=== PATIENT | male | born 1995 | race Caucasian/White ===

== ENCOUNTER 2019-11-14 02:51 | Emergency (ER) | payer MEDICAID, SELFPAY ==
[2019-11-14 02:52] VITALS: BP 158/108; PULSE 129; PULSE 134; RESP 181; TEMP 35.5; O2SAT 100; O2SAT 99
--- NOTE | 2019-11-14 02:57 | CT_ITS ---
STUDY: CT BRAIN WITHOUT CONTRAST REASON FOR EXAM: Male, 24 years old. Head injury. RADIATION DOSAGE (If Supplied By Facility): CTDIvol = ( 44.99 ) mGy, DLP = ( 779.24 ) mGycm TECHNIQUE: Transaxial CT imaging of the brain was performed without administration of intravenous contrast material. Individualized dose optimization techniques were used for this CT. COMPARISON: No relevant priors. FINDINGS: Small focal soft tissue swelling overlying the anterolateral aspect of the left frontal bone, just superolateral to the left orbit. Normal calvarium. Normal size ventricles and extra-axial spaces for the patient''s age. Normal white matter tracts of the cerebral hemispheres. Normal basal ganglia and thalami. Normal brainstem. Normal cerebellum. There is no intracranial hemorrhage. There are no findings of an acute ischemic infarction. Thickening of the maxillary sinuses mucosal, sphenoid sinus with complete opacification of the frontal sinuses and near complete opacification of the ethmoidal sinuses. These findings are compatible with pansinusitis. CT/Brain/Head without Contrast IMPRESSION: Normal unenhanced CT scan of the brain. No acute intracranial hemorrhage or space-occupying lesion. Electronically Signed: Cindy Wilkinson MD at 3:39 EST , Service support ,
--- NOTE | 2019-11-14 02:58 | CT_ITS ---
STUDY: CT CERVICAL SPINE WITHOUT CONTRAST REASON FOR EXAM: Male, 24 years old. Status post injury. RADIATION DOSAGE (If Supplied By Facility): CTDIvol = ( 11.97 ) mGy, DLP = ( 241.31 ) mGycm TECHNIQUE: High resolution transaxial imaging was performed without contrast material. Sagittal and coronal images were reconstructed. Individualized dose optimization techniques were used for this CT. COMPARISON: None FINDINGS: Normal craniovertebral junction. Normal anterior atlantoaxial articulation. Normal odontoid process. Normal cervical lordosis. Normal vertebral bodies and posterior osseous elements. C2-3: Normal endplates. Normal disc height and morphology. Normal central canal and intervertebral neuroforamina. C3-4: Normal endplates. Normal disc height and morphology. Normal central canal and intervertebral neuroforamina. C4-5: Normal endplates. Normal disc height and morphology. Normal central canal and intervertebral neuroforamina. C5-6: Normal endplates. Normal disc height and morphology. Normal central canal and intervertebral neuroforamina. C6-7: Normal endplates. Normal disc height and morphology. Normal central canal and intervertebral neuroforamina. C7-T1: Normal endplates. Normal disc height and morphology. Normal central canal and intervertebral neuroforamina. Lung apices reveal no pneumothorax. Coarse markings with bronchiectasis noted involving the lung parenchyma suggestive of bronchitis/pneumonitis. If indicated, follow-up with CT chest recommended for further characterization. CT/Spine Cervical without Contras IMPRESSION: Normal unenhanced CT examination of the cervical spine. Electronically Signed: Cindy Wilkinson MD at 3:42 EST , Service support ,
--- NOTE | 2019-11-14 03:02 | ED.DCSUM_ITS ---
- ER Visit Summary Date of Service: 11/14/19 Chief Complaint: Alcohol intoxication with head injury History of Present Illness: The patient is a 24 M [place] alcohol abuse of prior ER visits. Patient reportedly was found outside a bar with a head injury. Limited history. He is a very limited informant. 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 Patient was found cold and wet outside a bar on the ground. With a head injury. Patient himself is a limited informant and does not have any specific complaints. Physical Examination: Young male intoxicated. Clothes are wet. His eyes are open. He is in no severe distress. Vital signs are stable. He is afebrile. H EENT exam is left forehead is about 2 inch hematoma with a superficial laceration. No active bleeding. Pupils are unreactive light. Dentition intact. Scalp is nontender without hematoma. C-spine is nontender. Trachea midline. Lungs clear to auscultation bilaterally. Heart tachycardic no murmur. Chest were nontender. No signs of trauma. No crepitus or subcu air. Abdomen soft nontender. Normal bowel sounds no peritoneal signs. Pelvic girdle intact. He is moving all 4 extremities. There is no gross bony deformities. Neurologically he is intoxicated. His eyes are open. He is following limited commands. Back nontender. Test Results: CBC white count 11.5. Hemoglobin 16. No bands. Electrolytes sodium 134. Anion gap 12 glucose 298. BUN 20 creatinine 1. Alcohol level was elevated at 455 consistent with acute intoxication and his clinical presentation. CT of the brain showed no acute abnormality as read by the radiologist. And reviewed by me. CT C-spine again read by the radiologist reviewed by me no acute abnormality. No fracture. Emergency Department Course and Treatment: Patient intoxicated with a head injury. On repeat exams patient is resting quietly. He will remain in the emergency department and observed until he is coherent enough to be discharged to home. Patient's had multiple repeat exams. Patient is resting comfortably. Denies any complaints. Abdomen is benign. He is awake and alert. Is remorseful of being intoxicated and and up in the emergency department. He has had acceler ated heart rate around 140 bpm. He told me he has a history of tachycardia is off his medications for that. This is not abnormal for him to have a heart rate like that. Treatment Plan: Fluids and rest. Strongly encourage detox and alcohol counseling. Disposition: Discharge Impression: Acute alcohol intoxication Acute head injury with left forehead hematoma This note was generated with [employer] dictation software. It may contain incorrect words, spelling, and punctuation that were not noted in review of the chart prior to signing ED Disposition - Plan for ED Patient: Disposition: Home or Assisted Living Instructions: HEAD INJURY, No Wake-Up (Adult), Alcohol Abuse Referrals: Lenora Sutton, [Primary Care Provider] - 3-5 Days if not improving Additional Instructions: Plenty of fluids and rest. Tylenol for headache or body aches. You should strongly consider alcohol counseling or detox program.
[2019-11-14] MEDS: Ondansetron 4 MG/2 ML Vial IV (03:17)
[2019-11-14] MEDS: 0.9% Normal Saline 1,000 ML 1000 ML IV (03:17)
--- NOTE | 2019-11-14 03:20 | ED.DEP ---
ED Disposition - Plan for ED Patient: Disposition: Home or Assisted Living Instructions: HEAD INJURY, No Wake-Up (Adult), Alcohol Abuse Referrals: Lenora Sutton, [Primary Care Provider] - 3-5 Days if not improving Additional Instructions: Plenty of fluids and rest. Tylenol for headache or body aches. You should strongly consider alcohol counseling or detox program.
[2019-11-14 03:38] LABS: Absolute Lymphocyte Count 3.79 X10^3/uL (0.83-4.51); Absolute Neutrophil Count 6.9 X10^3/uL (2.0-7.7); Basophil# 0.15 X10^3/uL; Basophil% 1.3 % (0-1); Eosinophil# 0.29 X10^3/uL; Eosinophils% 2.5 % (0-5); Hematocrit 51.8 % (40-54); Hemoglobin 16.8 g/dL (13.0-16.5); Lymphocyte # 3.79 X10^3/ul (4.0); Lymphocyte % 32.9 % (19-41); Mean Corp Hgb Conc 32.4 g/dL (32-36); Mean Corpuscular Hgb 29.4 pg (27.0-32.0); Mean Corpuscular Volume 90.7 fL (80-94); Mean Platelet Vol. 9.1 fl (6.2-12.0); Monocyte# 0.39 X10^3/uL; Monocyte% 3.4 % (0-10); NRBC Flagged by Analyzer 0 % (0-5); Neutrophil # 6.85 X10^3/uL (2.7-7.7); Neutrophil % 59.4 % (47-70); Platelet Count 342 K/mm3 (150-450); RBC Distribution Width CV 13.7 % (11.6-14.6); RBC Distribution Width SD 45.3 fl (35.1-43.9); Red Blood Count 5.71 M/mm3 (4.6-6.2); White Blood Count 11.5 K/mm3 (4.4-11.0)
[2019-11-14 03:46] VITALS: BP 134/90; PULSE 96; RESP 16; O2SAT 98
[2019-11-14 03:51] LABS: Anion Gap 12 (5-15); BUN 20 mg/dL (7-18); BUN/Creat Ratio 18.5 RATIO (10-20); Calcium,Total 8.7 mg/dL (8.5-10.1); Chloride 102 mmol/L (98-107); Creatinine, Serum 1.08 mg/dL (0.70-1.30); EST Glomerular Filtration Rate 88 mL/min (>60); Est Glom Filt Rate - Afr Amer 106 mL/min (>60); Estimated Creatinine Clearance 72.86 ml/min; Glucose 298 mg/dL (74-106); Sodium Level 134 mmol/L (136-145)
[2019-11-14 05:24] VITALS: BP 115/76; PULSE 102; RESP 17
--- NOTE | 2019-11-14 08:28 | ED.RN ---
PT IS ATTMPTING TO REMOVED ALL HIS LEADS AND TAKE IV OUT. HAVE REPEATEDLY EXPLAINED THE IMPORTANCE OF THESE THINGS BUT HE REFUSED TO LISTEN. PHYSICIAN AWARE AND INFORMED TO GO SEE WITH PT.
[2019-11-14 08:33] VITALS: PULSE 153; RESP 19; O2SAT 96
== END 2019-11-14 09:07 | disposition home or self-care (01) ==
LOC: ED 03:23
PROVIDERS: Emergency Provider Emergency Medicine
DX: S00.83XA Contusion of other part of head, initial encounter (principal); F10.129 Alcohol abuse with intoxication, unspecified; Y90.8 Blood alcohol level of 240 mg/100 ml or more; X58.XXXA Exposure to other specified factors, initial encounter; Y93.89 Activity, other specified; Y92.89 Other specified places as the place of occurrence of the external cause; Y99.8 Other external cause status
CPT/HCPCS: 70450; 72125; 80048; 80320; 85025; 96361; 96374; 99285; A4216; G0480; J2405

== ENCOUNTER 2020-07-04 12:37 | Inpatient (IN) | payer MEDICAID, SELFPAY ==
[2020-07-04] VITALS (11 sets, daily range): BP systolic 137–169; BP diastolic 99–114; PULSE 106–137; RESP 16–24; TEMP 36.9–37.7; O2SAT 91–95; BMI 17.2; BMI 16.7
--- NOTE | 2020-07-04 12:56 | EKG12_ITS ---
Test Reason : SUB ABUSE Blood Pressure : / mmHG Vent. Rate : 112 BPM Atrial Rate : 112 BPM P-R Int : 178 ms QRS Dur : 088 ms QT Int : 346 ms P-R-T Axes : 063 085 051 degrees QTc Int : 472 ms Sinus tachycardia Otherwise normal ECG Confirmed by NOÉ RUEDA, RIC ([id number]), book editor BE FARAH ([id number]) on 07/10/2020 9:16:19 AM Referred By: DC Confirmed By:RIC UMANZOR MD
--- NOTE | 2020-07-04 13:00 | NURSING ---
NO OLD EKGS
--- NOTE | 2020-07-04 13:07 | ED.DCSUM_ITS ---
- ER Visit Summary Date of Service: 07/04/20 Chief Complaint: Alcohol withdrawal History of Present Illness: The patient is a 24 M with an underlying history of cystic fibrosis, asthma, pancreatitis. Presents today for alcohol withdrawal. He has been drinking regularly for 4 or 5 years without any periods of sobriety. He will drink a bottle and a half of hard liquor plus a couple 12 packs a week or sometimes more. He tends to drink more heavily on the weekends. His last drink was 5 days ago. He feels dizzy with a tremor. He has nausea and vomiting and an elevated heart rate. He has been having hallucinations. He denies any history of prior withdrawals or admissions for detox. Denies any history of DTs or seizures. Denies any other drug use or prescription drug abuse. Physical Examination: Blood pressure 169/114 and heart rate 137. Afebrile. Heart regular. Lungs clear. Abdomen soft. Skin appears unremarkable. Test Results: EKG, labs, tox screen, alcohol level pending. Emergency Department Course and Treatment: Patient has symptoms of alcohol withdrawal. He was treated with IV fluids and Ativan. He was placed on a monitor. He will likely need admission at this facility. Results are pending at the time of this dictation. I discussed the patient's case with Dr. Sanz. The patient will definitely need admitted. She would like a call back when the results are completed. I will sign the patient out to Dr. Felder. Everything resulted except for the tox screen and chest x-ray. Liver enzymes are elevated. Potassium 2.7 and glucose 280. He was treated with potassium. Hospitalist was contacted and he will be admitted to PCU. Again, chest x-ray and tox screen are pending at the time of this dictation. Treatment Plan: As above Disposition: admission Impression: Alcohol withdrawal, cystic fibrosis, hypokalemia This note was generated with [employer] software. It may contain incorrect words, spelling, and punctuation that were not noted in review of the chart prior to signing ED Disposition - Plan for ED Patient: Referrals: Lenora Sutton DO [Primary Care Provider] -
[2020-07-04] MEDS: 0.9% Normal Saline 1,000 ML 1000 ML IV (13:22)
[2020-07-04] MEDS: LORazepam 2 MG/ML Syringe 1 MG IV (13:22)
--- NOTE | 2020-07-04 13:35 | RAD_ITS ---
STUDY: X-RAY CHEST REASON FOR EXAM: Male, 24 years old. ALCOHOL WITHDRAW, DIZZINESS, TECHNIQUE: Single AP portable view of the chest. COMPARISON: None. FINDINGS: EKG electrodes are seen. Prominence of the right hilar region with increased markings in the right upper lobe as well as at the lung bases. Follow-up is recommended. There is no demonstrated pleural abnormality. Normal size heart. Normal visualized pulmonary arteries. Normal visualized aortic arch and descending thoracic aorta. Normal visualized thoracic spine. Normal visualized ribs, clavicles, and shoulders. There is no demonstrated abnormality of the visualized soft tissue structures of the upper abdomen. RAD/Chest 1 View (Portable) IMPRESSION: Prominence of the right hilum with possible right perihilar infiltrate. Increased markings in the right upper lobe as well as at the lung bases. Follow-up is recommended. Electronically Signed: Arnulfo Pringle, at 14:33 EDT , Service support ,
[2020-07-04 13:43] LABS: Absolute Lymphocyte Count 0.88 X10^3/uL (0.83-4.51); Absolute Neutrophil Count 3.2 X10^3/uL (2.0-7.7); Basophil# 0.04 X10^3/uL; Basophil% 0.8 % (0-1); Eosinophil# 0.07 X10^3/uL; Eosinophils% 1.5 % (0-5); Hematocrit 40.2 % (40-54); Hemoglobin 13.7 g/dL (13.0-16.5); Lymphocyte # 0.88 X10^3/ul (4.0); Lymphocyte % 18.3 % (19-41); Mean Corp Hgb Conc 34.1 g/dL (32-36); Mean Corpuscular Hgb 32.6 pg (27.0-32.0); Mean Corpuscular Volume 95.7 fL (80-94); Mean Platelet Vol. 9.7 fl (6.2-12.0); Monocyte% 12.5 % (0-10); NRBC Flagged by Analyzer 0 % (0-5); Neutrophil % 66.5 % (47-70); Platelet Count 154 K/mm3 (150-450); RBC Distribution Width CV 11.7 % (11.6-14.6); RBC Distribution Width SD 40.6 fl (35.1-43.9); White Blood Count 4.8 K/mm3 (4.4-11.0)
[2020-07-04 14:03] LABS: ALB/GLOB Ratio 0.5 RATIO (0.9-2.4); AST(SGOT) 84 U/L (15-37); Alanine Aminotransfer ALT/SGPT 69 U/L (16-61); Albumin, Serum 2.2 g/dL (3.2-5.0); Alkaline Phosphatase 740 U/L (45-117); Anion Gap 7 (5-15); BUN 12 mg/dL (7-18); BUN/Creat Ratio 14.9 RATIO (10-20); Calcium,Total 8.5 mg/dL (8.5-10.1); Chloride 98 mmol/L (98-107); Creatinine, Serum 0.81 mg/dL (0.70-1.30); EST Glomerular Filtration Rate 122 mL/min (>60); Est Glom Filt Rate - Afr Amer 148 mL/min (>60); Estimated Creatinine Clearance 83.35 ml/min; Globulin 4.6 g/dL (2.2-4.2); Glucose 280 mg/dL (74-106); Lipase < 10 U/L (73-393); Potassium 2.7 mmol/L (3.5-5.1); Protein, Total 6.8 g/dL (6.4-8.2); Sodium Level 137 mmol/L (136-145)
--- NOTE | 2020-07-04 14:04 | CM.ED ---
Social Work Consult: Substance Abuse Informant: Self-Referral Chief Complaint: Patient seeking medical management of withdrawal symptoms. Patient reports alcohol as substance of choice with last drink 5 days ago. Marital/Social history: Single Living Situation: Stable housing, did not assess further. Support/Resources: Reports support from patient mother and father (Nic and Emanuel Barber). Mental Health Treatment/History: Depression. Reports to take medication for Depression, Celexa. Patient states to be compliant with Celexa. Patient denies any history or current suicidal thoughts/plans/intents. Substance Abuse/use: Alcohol. Patient reports to fluctuate between a case of beer and a bottle of tequila or both. Patient states last drink was 5 days ago. Patient states to have been abusing alcohol for the past 4-5 years. Patient denies any history of detox or substance abuse treatment in the community. Assessment: Met with patient in room. Introduced self and manager social services role. Patient agreeable to speak with this manager social services. Patient mother present for support. Patient comfortable with speaking with this manager social services with patient mother in the room. This manager social services went over [facility] program contract verbally with patient, patient verbally agreeable to control. Nursing staff to have patient sign contract. Patient/patient mother with no further questions. Support provided. PLAN: Admit to [facility]. CALOS Harmon
[2020-07-04] MEDS: Potassium Chloride 10mEq/100mL 10 MEQ/100 ML IV.SOLN. 100 MEQ IV BOLUS ×4 (14:34→17:33)
--- NOTE | 2020-07-04 14:44 | CM.ED ---
Social Work Telephone call to [facility]. Voicemail left updating [facility] on patient admission to PCU for [facility] program. Desi Ramires MSW, CALOS
--- NOTE | 2020-07-04 14:57 | HP.PCM_ITS ---
<Anabel Greene - Last Filed: 07/04/20 15:28> Problem List (1) Cystic fibrosis Status: Chronic (2) Alcohol abuse Status: Chronic (3) Asthma Status: Chronic (4) Type 1 diabetes mellitus Status: Chronic (5) Pancreatic insufficiency Status: Chronic History of Present Illness Date of Admission: 07/04/20 Chief Complaint: Alcohol withdrawal. The patient is a 24 year old M who presents to the emergency room due to alcohol withdrawal. Patient intermittently confused during conversation and per mother at bedside, not giving accurate information. Mother provides most of HPI. Patient reportedly moved home with parents 1 year ago following being at college. A few months ago patient's parents learned of patient's heavy alcohol use. Patient under reported how much alcohol he drinks. Per mother, patient drinks a whole bottle of liquor at a time and 12 pack of beer at one sitting. He has been drinking daily for approximately the last 4 to 5 years. He has never been in detox or treatment program. Mother reports over the last 2 days he has been hallucinating and having bizarre behavior. She denies any history of similar behavior or history of hallucinations. She states patient was to go to work this morning and never showed up to work. She got a call from patient's friend that he was sitting in the driveway of their home and did not know where he was. Patient reports his last drink was last . Mother reports patient had significant nausea and vomiting over the weekend. Patient currently complains of tremors and confusion and states he cannot get his thoughts together. He has a past medical history of cystic fibrosis, asthma, type 1 di abetes mellitus, pancreatic insufficiency. Past Medical History Past Medical History (Chronic Problems): Chronic Problems Cystic fibrosis (Chronic) Alcohol abuse (Chronic) Asthma (Chronic) Type 1 diabetes mellitus (Chronic) Pancreatic insufficiency (Chronic) Allergies No Known Allergies Allergy (Verified 11/14/19 02:57) Home Medications: Ambulatory Orders Medication Instructions Recorded Elexacaftor/Tezacaftor/Ivacaft 2 ea PO DAILY 11/14/19 [Trikafta 100/50/75 mg-150 mg] Lipase/Protease/Amylase [Kush Molina 2 - 3 cap PO TIDCM 11/14/19 36,000 Units Capsule] Insulin Glargine,Hum.rec.anlog 3 unit SQ QHS 07/04/20 [Arvin Dianapen U-100] Insulin Lispro [Admelog Solostar] See Protocol SQ TIDCM 07/04/20 Tobramycin/Nebulizer [Tobramycin 300 mg IH BID 07/04/20 Octavio 300 mg/5 ml] Surgical History: no surgical history Psychiatric History: No pertinent psych hx Lives: With Family Smoking Status: Former smoker Tobacco Use: Vapor Alcohol: Heavy Drugs: None - *Family History Maternal History Items: High Cholesterol, Hypertension Paternal History Items: - - Leukemia Review of Systems Constitutional: Denies: Chills, Fever, Weight Change Eyes: Reports: Conjunctivae Inflammation, Redness HEENT: Denies: Head Aches, Sinus Congestion, Sinus Drainage Cardiovascular: Denies: Chest Pain, Palpitations Respiratory: Denies: Cough, Shortness of breath at rest, Sputum production Gastrointestinal: Denies: Abdominal Pain, Nausea, Vomiting Genitourinary: Denies: Dysuria Musculoskeletal: Denies: Joint Pain, Joint Tenderness Skin: Denies: Rash, Wounds Neurological: Reports: Confusion. Denies: Focal weakness, Numbness, Tingling Psychiatric: Denies: Anxiety, Depression, Homicidal Ideations, Suicidal Idea tions Hematologic/ Lymphatic: Denies: Easy Bruising, Easy Bleeding VTE Information - Inpt Only VTE Present on Admission: No VTE Mechan Device Prophylaxis: None VTE Pharm Prophylaxis ordered?: No Reason prophylaxis not ordered:: Treatment Not Indicated - Physical Exam Vitals/I&O's: Vital Signs Temp Pulse Resp BP Pulse Ox 98.4 F 111 H 24 H 146/108 H 91 07/04/20 14:38 07/04/20 14:38 07/04/20 14:38 07/04/20 14:38 07/04/20 14:38 Oxygen Delivery Method Room Air Weight: 94 lb Body Mass Index (BMI) 17.2 General: Alert, Oriented x3, Cooperative, - - restless HEENT: PERRLA, Normocephalic, - - Bilateral conjunctivitis Oral: Dry Mucosa Neck: Supple, No JVD, Negative Carotid Bruits Lungs: Clear to auscultation, Normal air movement Cardiovascular: Regular Rhythm, Normal S1, Normal S2, No murmurs, Tachycardic Abdomen: Bowel Sounds Present, Soft, Non Tender, Non-Distended Extremities: No clubbing, No cyanosis, No edema, Capillary Refill Less than 3 Seconds Skin: No rashes, No breakdown, - - Midline forehead cystic acne with skin breakage due to picking. Musculoskeletal: No Tenderness to Palpation of Joints or Extremities Neurological: Cranial nerves II-XII grossly intact, Neuro grossly intact Psych/Mental Status: Anxious Laboratory Results 07/04/20 13:30: WBC 4.8, RBC 4.20 L, Hgb 13.7, Hct 40.2, MCV 95.7 H, MCH 32.6 H, MCHC 34.1, RDW Std Deviation 40.6, RDW Coeff of Erika 11.7, Plt Count 154, MPV 9.7, Immature Gran % (Auto) 0.400, Neut % (Auto) 66.5, Lymph % (Auto) 18.3 L, [place] % (Auto) 12.5 H, Eos % (Auto) 1.5, Baso % (Auto) 0.8, Absolute Neuts (auto) 3.2, Absolute Lymphs (auto) 0.88, Nucleated RBC % 0 07/04/20 13:30: Sodium 137, Potassium 2.7 L*, Chloride 98, Carbon Dioxide 32.0, Anion Gap 7, BUN 12, Creatinine 0.81, Estim Creat Clear Calc 83.35, Est GFR (MDRD) Af Amer 148, Est GFR (MDRD) Non-Af 122, BUN/Creatinine Ratio 14.9, Glucose 280 H, Calcium 8.5, Total Bilirubin 1.50 H, AST 84 H, ALT 69 H, Alkaline Phosphatase 740 H, Troponin I < 0.015, Total Protein 6.8, Albumin 2.2 L, Globulin 4.6 H, Albumin/Globulin Ratio 0.5 L, Lipase < 10 L 07/04/20 13:30: Ethyl Alcohol 7.0 07/04/20 13:30: Urine Opiates Screen Pending, Urine Methadone Screen Pending, Ur Barbiturates Screen Pending, Ur Phencyclidine Scrn Pending, Ur Amphetamines Screen Pending, U Methamphetamin-MDMA Pending, U Benzodiazepines Scrn Pending, Urine Cocaine Screen Pending, U Cannabinoids Screen Pending, Ur Drug Screen Comment Current Medications Potassium Chloride () 10 meq in 100 mls @ 100 mls/hr IV BOLUS Q1H ABRAHAM Stop: 07/04/20 18:14 Last Admin: 07/04/20 14:34 Dose: 100 mls/hr Documented by: Assessment/Plan 1. Acute alcohol withdrawal, chronic alcohol dependence-CIWA. Phenobarbital taper. PRN regimen for somatic complaints. [employer] conusult. 2. Hypokalemia-replace per protocol, trend BMP. 3. Transaminitis-chronic per family. 4. Cystic fibrosis-on trikafta, tobramycin nebulizer. 5. Type 1 diabetes xdgsoifs-Opiz-Gdilw with sliding scale insulin. Continue home insulin regimen. 6. Asthma-as needed albuterol inhaler. 7. Pancreatic insufficiency-on Creon. 8. Protein calorie malnutrition-as evidenced by BMI 16, cachectic appearance. Dietitian consult. 9. Tachycardia-patient's mother reports this is somewhat chronic however suspect exacerbated by #1. Will treat withdrawal and continue to monitor. DVT prophylaxis-not indicated, low risk This patient was seen by ANKITA Antonio under the supervision of Dr. Sanz. <Kirsty Sanz - Last Filed: 07/04/20 16:06> History of Present Illness The patient is a 24 year old M [] Past Medical History Allergies No Known Allergies Allergy (Verified 11/14/19 02:57) - Physical Exam Vitals/I&O's: Vital Signs Temp Pulse Resp BP Pulse Ox 99.3 F H 114 H 18 157/99 H 95 07/04/20 15:15 07/04/20 15:15 07/04/20 15:15 07/04/20 15:15 07/04/20 15:15 Oxygen Delivery Method Room Air Weight: 41.5 kg Body Mass Index (BMI) 16.7 Intake and Output for Last 24 Hours 07/02/20 07/03/20 07/04/20 23:59 23:59 23:59 Intake Total 1078.33 / 1078.33 Balance 1078.33 / 1078.33 Laboratory Results 07/04/20 13:30: WBC 4.8, RBC 4.20 L, Hgb 13.7, Hct 40.2, MCV 95.7 H, MCH 32.6 H, MCHC 34.1, RDW Std Deviation 40.6, RDW Coeff of Erika 11.7, Plt Count 154, MPV 9.7, Immature Gran % (Auto) 0.400, Neut % (Auto) 66.5, Lymph % (Auto) 18.3 L, [place] % (Auto) 12.5 H, Eos % (Auto) 1.5, Baso % (Auto) 0.8, Absolute Neuts (auto) 3.2, Absolute Lymphs (auto) 0.88, Nucleated RBC % 0 07/04/20 13:30: Sodium 137, Potassium 2.7 L*, Chloride 98, Carbon Dioxide 32.0, Anion Gap 7, BUN 12, Creatinine 0.81, Estim Creat Clear Calc 83.35, Est GFR (MDRD) Af Amer 148, Est GFR (MDRD) Non-Af 122, BUN/Creatinine Ratio 14.9, Gluc ose 280 H, Calcium 8.5, Total Bilirubin 1.50 H, AST 84 H, ALT 69 H, Alkaline Phosphatase 740 H, Troponin I < 0.015, Total Protein 6.8, Albumin 2.2 L, Globulin 4.6 H, Albumin/Globulin Ratio 0.5 L, Lipase < 10 L 07/04/20 13:30: Ethyl Alcohol 7.0 07/04/20 13:30: Urine Opiates Screen Cancelled, Urine Methadone Screen Cancelled, Ur Barbiturates Screen Cancelled, Ur Phencyclidine Scrn Cancelled, Ur Amphetamines Screen Cancelled, U Methamphetamin-MDMA Cancelled, U Benzodiazepines Scrn Cancelled, Urine Cocaine Screen Cancelled, U Cannabinoids Screen Cancelled, Ur Drug Screen Comment Cancelled 07/04/20 13:30: Magnesium Pending 07/04/20 13:30: Hemoglobin A1c Pending Current Medications Al Hydroxide/Mg Hydroxide (Mylanta Ii) 30 ml PO Q6H PRN PRN PRN Reason: dyspesia Bisacodyl (Dulcolax) 10 mg RECTAL DAILY PRN PRN Reason: Constipation Dextrose (D50w Syringe) 0 gm IV X1 PRN; Protocol PRN Reason: Hypoglycemia Dicyclomine HCl (Bentyl) 20 mg PO Q6H PRN PRN PRN Reason: abdominal discomfort Erythromycin () 1 applic OPHTHALMIC 4X/DAY ABRAHAM Folic Acid (Folic Acid) 1 mg PO DAILY@0800 ABRAHAM Gabapentin (Neurontin) 300 mg PO Q8H PRN PRN PRN Reason: moderate to severe anxiety Glucagon () 1 mg IM .X1 PRN PRN Reason: Hypoglycemia Hydroxyzine Pamoate (Vistaril Pamoate Capsule) 50 mg PO Q4H PRN PRN PRN Reason: mild anxiety Potassium Chloride () 10 meq in 100 mls @ 100 mls/hr IV BOLUS Q1H ABRAHAM Stop: 07/04/20 18:14 Last Admin: 07/04/20 15:21 Dose: 100 mls/hr Documented by: Sodium Chloride () 1,000 mls @ 125 mls/hr IV .Q8H ABRAHAM Stop: 07/05/20 07:49 Insulin Glargine (Lantus (Bk)) 3 units SC QHS ABRAHAM Insulin Human Lispro (Humalog Kwikpen ([facility])) 0 unit SC ACHS ABRAHAM; Protocol Loperamide HCl (Imodium) 2 mg PO Q4H PRN PRN PRN Reason: LOOSE STOOLS Nicotine (Nicoderm Cq (Pbkc)) 21 mg TRANSDERM. DAILY ABRAHAM Non-Formulary Medication (Elexacaftor/Tezacaftor/Ivacaft [Trikafta 100/50/75 Mg- 150 Mg]) 2 ea PO DAILY ABRAHAM Non-Formulary Medication (Tobramycin/Nebulizer [Tobramycin Octavio 300 Mg/5 Ml]) 300 mg IH BID ABRAHAM Ondansetron HCl (Zofran) 8 mg PO Q8H PRN PRN PRN Reason: NAUSEA Ondansetron HCl (Zofran) 4 mg IV Q8H PRN PRN PRN Reason: NAUSEA/VOMITING Pancrelipase (Creon Dr 24,000 Unit Capsule) 3 capsule PO TIDCM ABRAHAM Pancrelipase (Creon Dr 12,000 Unit Capsule) 3 capsule PO TIDCM ABRAHAM Pancrelipase (Creon Dr 12,000 Unit Capsule) 2 capsule PO BID PRN PRN PRN Reason: SNACKS Pancrelipase (Creon Dr 24,000 Unit Capsule) 2 capsule PO BID PRN PRN PRN Reason: SNACKS Phenobarbital (Phenobarbital) 97.2 mg PO Q4H ABRAHAM; Taper Stop: 07/08/20 23:29 Senna (Senokot) 2 tablet PO QHS PRN PRN Reason: Constipation Sodium Chloride () 10 - 40 ml IV UD PRN PRN Reason: SALINE FLUSH Thiamine HCl (Vitamin B1) 100 mg PO DAILYCM ABRAHAM Trazodone HCl (Desyrel) 100 mg PO QHS PRN PRN Reason: INSOMNIA Assessment/Plan This patient was seen in conjunction with Anabel Greene NP. I have independently interviewed and examined the patient and reviewed pertinent historical, laboratory, and other data. Please refer to her note for patient's presentation, findings, and recommendations. 24-year-old male with past medical history of type I DM, cystic fibrosis, chronic pancreatic insufficiency, asthma comes in with an altered mental status. Patient's mom was at the bedside. Patient is a heavy drinker, not sure how much she drinks. He has been hallucinating the last 2 days and having bizarre behavior. Patient was supported living going to work today but never showed up to work. A friend called that he was sitting in the driveway confused. Reportedly his last drink was last tested. He has tremors, has been seeing things, has nausea and vomiting. Vitals were reviewed -cardiac, elevated blood pressure Physical Exam: Gen: Appears frail, in some discomfort, not pale, not jaundiced, alert oriented x3, crusting of both eyes with erythema of the conjunctiva CVS:HS I +II, regular, no murmurs RESP: CTA GI: BS present and normal, nontender, no palpable organs EXT:No edema Labs reviewed: K 2.7, Glucose 280, elevated liver enzymes ASSESSMENT: 1. Acute metabolic encephalopathy likely secondary acute alcohol withdrawal 2. Acute alcohol withdrawal, severe with hallucinations and probable DTs 3. Severe hypokalemia 4. Elevated transaminitis likely secondary to chronic alcohol use 5. Type I DM, uncontrolled 6. Cystic fibrosis 7. Pancreatic insufficiency 8. Protein calorie malnutrition 9. Bilateral conjunctivitis Meds reviewed Plan: We will get a urine tox start Continue to monitor on telemetry Continue on phenobarb withdrawal protocol Replace potassium Check magnesium level Continue to monitor blood sugar on insulin sliding scale and home medications Repeat transaminases in the morning; if remains elevated, we would recommend ultrasound of the liver Dietitian consult Erythromycin eyedrops daily [facility] Inpatient E&M: [id number] Init Hosp L3
[2020-07-04 16:07] LABS: Magnesium 1.4 mg/dL (1.6-2.6)
[2020-07-04 16:27] LABS: Hemoglobin A1c 6.6 % (3.8-5.6)
[2020-07-04] MEDS: Phenobarbital 32.4 MG Tablet 97.2 MG PO (16:46)
[2020-07-04 16:56] LABS: Bedside Glucose 145 mg/dL (70-110)
[2020-07-04] MEDS: Erythromycin Base 1 OPTH.TUBE 1 APPLIC OPHTHALMIC ×2 (17:41→22:23)
[2020-07-04] MEDS: Creon 24,000 unit DR Capsule 3 CAP PO (18:11)
[2020-07-04] MEDS: 0.9% Normal Saline 1,000 ML 125 ML IV (18:20)
[2020-07-04] MEDS: LORazepam 1 MG Tablet PO ×2 (18:42→22:20)
[2020-07-04] MEDS: Metoprolol Tartrate 25 MG Tablet 12.5 MG PO (22:20)
[2020-07-04] MEDS: Insulin Lispro 100 UNIT/ML INSULN.PEN SC (22:29)
[2020-07-04 22:40] LABS: Bedside Glucose 215 mg/dL (70-110)
[2020-07-05] VITALS (14 sets, daily range): BP systolic 147–157; BP diastolic 87–105; PULSE 77–120; RESP 16–20; TEMP 36.9–38.3; O2SAT 92–97; BMI 16.7
[2020-07-05] MEDS: LORazepam 1 MG Tablet PO ×6 (02:49→21:14)
[2020-07-05] MEDS: 0.9% Normal Saline 1,000 ML 125 ML IV (02:49)
[2020-07-05 03:37] LABS: Amphetamine Urine VISTA NEGATIVE (<1000 ng/mL); Barbiturate Urine VISTA POSITIVE (< 200 ng/mL); Benzodiazepine Urine VISTA NEGATIVE (< 200 ng/mL); Cocaine Urine VISTA NEGATIVE (< 300 ng/mL); Ecstacy Urine VISTA NEGATIVE (< 500 ng/mL); Methadone Urine VISTA NEGATIVE (< 300 ng/mL); PCP Urine VISTA NEGATIVE (< 25 ng/mL); THC Urine VISTA NEGATIVE (< 50 ng/mL); Vista UDS pH Range 7
[2020-07-05 06:34] LABS: Absolute Lymphocyte Count 1.34 X10^3/uL (0.83-4.51); Absolute Neutrophil Count 2.9 X10^3/uL (2.0-7.7); Basophil# 0.04 X10^3/uL; Basophil% 0.7 % (0-1); Eosinophil# 0.54 X10^3/uL; Eosinophils% 9.4 % (0-5); Hemoglobin 13.9 g/dL (13.0-16.5); Lymphocyte # 1.34 X10^3/ul (4.0); Lymphocyte % 23.4 % (19-41); Mean Corp Hgb Conc 34.8 g/dL (32-36); Mean Corpuscular Hgb 34.6 pg (27.0-32.0); Mean Corpuscular Volume 99.5 fL (80-94); Mean Platelet Vol. 9.4 fl (6.2-12.0); Monocyte# 0.89 X10^3/uL; Monocyte% 15.6 % (0-10); NRBC Flagged by Analyzer 0 % (0-5); Neutrophil # 2.89 X10^3/uL (2.7-7.7); Neutrophil % 50.6 % (47-70); Platelet Count 154 K/mm3 (150-450); RBC Distribution Width CV 12.1 % (11.6-14.6); RBC Distribution Width SD 43.7 fl (35.1-43.9); Red Blood Count 4.02 M/mm3 (4.6-6.2); White Blood Count 5.7 K/mm3 (4.4-11.0)
[2020-07-05 06:59] LABS: ALB/GLOB Ratio 0.5 RATIO (0.9-2.4); AST(SGOT) 88 U/L (15-37); Alanine Aminotransfer ALT/SGPT 63 U/L (16-61); Alkaline Phosphatase 714 U/L (45-117); Anion Gap 4 (5-15); BUN 7 mg/dL (7-18); BUN/Creat Ratio 9.2 RATIO (10-20); Calcium,Total 7.5 mg/dL (8.5-10.1); Chloride 107 mmol/L (98-107); Creatinine, Serum 0.76 mg/dL (0.70-1.30); EST Glomerular Filtration Rate 130 mL/min (>60); Est Glom Filt Rate - Afr Amer 158 mL/min (>60); Estimated Creatinine Clearance 86.46 ml/min; Globulin 4.4 g/dL (2.2-4.2); Glucose 99 mg/dL (74-106); Potassium 3.3 mmol/L (3.5-5.1); Protein, Total 6.4 g/dL (6.4-8.2); Sodium Level 141 mmol/L (136-145)
[2020-07-05 07:26] LABS: Bedside Glucose 91 mg/dL (70-110)
[2020-07-05] MEDS: Metoprolol Tartrate 25 MG Tablet 12.5 MG PO ×2 (09:49→21:22)
[2020-07-05] MEDS: Thiamine Hydrochloride 100 MG Tablet PO (09:50)
[2020-07-05] MEDS: Erythromycin Base 1 OPTH.TUBE 1 APPLIC OPHTHALMIC ×4 (09:50→21:19)
[2020-07-05] MEDS: ELEXACAFTOR/TEZACAFTOR/IVACAFT 1 EACH TABLET.SEQ PO (09:50)
[2020-07-05] MEDS: Folic Acid 1 MG Tablet PO (09:50)
--- NOTE | 2020-07-05 10:05 | PCM.PROGNOTE ---
<Anabel Greene - Last Filed: 07/05/20 10:13> Subjective: Patient seen and examined. Somnolent this morning. No evidence of distress or withdrawal symptoms. - Physical Exam Vitals/I&O's: Vital Signs Temp Pulse Resp BP Pulse Ox 98.4 F 77 18 152/102 H 97 07/05/20 09:45 07/05/20 09:49 07/05/20 09:45 07/05/20 09:45 07/05/20 09:45 Oxygen Flow Rate (L/min) 2 Oxygen Delivery Method Room Air Weight: 91 lb 7.869 oz Body Mass Index (BMI) 16.7 Intake and Output for Last 24 Hours 07/03/20 07/04/20 07/05/20 23:59 23:59 23:59 Intake Total 1664.83 / 1664.83 727.08 / 727.08 Output Total 0 / 0 Balance 1664.83 / 1664.83 727.08 / 727.08 General: No apparent distress, - - Drowsy HEENT: Atraumatic, PERRLA, Normocephalic, - - Bilateral conjunctivitis Oral: Dry Mucosa Neck: Supple, No JVD, Negative Carotid Bruits Lungs: Clear to auscultation, Normal air movement Cardiovascular: Regular rate, Regular Rhythm, Normal S1, Normal S2, No murmurs Abdomen: Bowel Sounds Present, Soft, Non Tender, Non-Distended Extremities: No clubbing, No cyanosis, No edema, Capillary Refill Less than 3 Seconds Skin: No rashes, No breakdown, - - Midline forehead cystic acne with skin breakage due to picking. Musculoskeletal: No Tenderness to Palpation of Joints or Extremities Neurological: Cranial nerves II-XII grossly intact, Neuro grossly intact Psych/Mental Status: Normal Affect, Appropriate Laboratory Results 07/04/20 13:30: WBC 4.8, RBC 4.20 L, Hgb 13.7, Hct 40.2, MCV 95.7 H, MCH 32.6 H, MCHC 34.1, RDW Std Deviation 40.6, RDW Coeff of Erika 11.7, Plt Count 154, MPV 9.7, Immature Gran % (Auto) 0.400, Neut % (Auto) 66.5, Lymph % (Auto) 18.3 L, [place]in[place] % (Auto) 12.5 H, Eos % (Auto) 1.5, Baso % (Auto) 0.8, Absolute Neuts (auto) 3.2, Absolute Lymphs (auto) 0.88, Nucleated RBC % 0 07/04/20 13:30: Sodium 137, Potassium 2.7 L*, Chloride 98, Carbon Dioxide 32.0, Anion Gap 7, BUN 12, Creatinine 0.81, Estim Creat Clear Calc 83.35, Est GFR (MDRD) Af Amer 148, Est GFR (MDRD) Non-Af 122, BUN/Creatinine Ratio 14.9, Glucose 280 H, Calcium 8.5, Total Bilirubin 1.50 H, AST 84 H, ALT 69 H, Alkaline Phosphatase 740 H, Troponin I < 0.015, Total Protein 6.8, Albumin 2.2 L, Globulin 4.6 H, Albumin/Globulin Ratio 0.5 L, Lipase < 10 L 07/04/20 13:30: Ethyl Alcohol 7.0 07/04/20 13:30: Urine Opiates Screen Cancelled, Urine Methadone Screen Cancelled, Ur Barbiturates Screen Cancelled, Ur Phencyclidine Scrn Cancelled, Ur Amphetamines Screen Cancelled, U Methamphetamin-MDMA Cancelled, U Benzodiazepines Scrn Cancelled, Urine Cocaine Screen Cancelled, U Cannabinoids Screen Cancelled, Ur Drug Screen Comment Cancelled 07/04/20 13:30: Magnesium 1.4 L 07/04/20 13:30: Hemoglobin A1c 6.6 H 07/04/20 16:44: POC Glucose 145 H 07/04/20 22:10: POC Glucose 215 H 07/05/20 02:50: Urine Opiates Screen NEGATIVE, Urine Methadone Screen NEGATIVE, Ur Barbiturates Screen POSITIVE H, Ur Phencyclidine Scrn NEGATIVE, Ur Amphetamines Screen NEGATIVE, U Methamphetamin-MDMA NEGATIVE, U Benzodiazepines Scrn NEGATIVE, Urine Cocaine Screen NEGATIVE, U Cannabinoids Screen NEGATIVE, Ur Drug Screen Comment 07/05/20 06:22: WBC 5.7, RBC 4.02 L, Hgb 13.9, Hct 40.0, MCV 99.5 H, MCH 34.6 H, MCHC 34.8, RDW Std Deviation 43.7, RDW Coeff of Erika 12.1, Plt Count 154, MPV 9.4, Immature Gran % (Auto) 0.300, Neut % (Auto) 50.6, Lymph % (Auto) 23.4, [place]in[place] % (Auto) 15.6 H, Eos % (Auto) 9.4 H, Baso % (Auto) 0.7, Absolute Neuts (auto) 2.9, Absolute Lymphs (auto) 1.34, Nucleated RBC % 0 07/05/20 06:22: Sodium 141, Potassium 3.3 L, Chloride 107, Carbon Dioxide 30.0, Anion Gap 4 L, BUN 7, Creatinine 0.76, Estim Creat Clear Calc 86.46, Est GFR (MDRD) Af Amer 158, Est GFR (MDRD) Non-Af 130, BUN/Creatinine Ratio 9.2 L, Glucose 99, Calcium 7.5 L, Total Bilirubin 1.10 H, AST 88 H, ALT 63 H, Alkaline Phosphatase 714 H, Total Protein 6.4, Albumin 2.0 L, Globulin 4.4 H, Albumin/Globulin Ratio 0.5 L 07/05/20 06:57: POC Glucose 91 Current Medications Al Hydroxide/Mg Hydroxide (Mylanta Ii) 30 ml PO Q6H PRN PRN PRN Reason: dyspesia Bisacodyl (Dulcolax) 10 mg RECTAL DAILY PRN PRN Reason: Constipation Dextrose (D50w Syringe) 0 gm IV X1 PRN; Protocol PRN Reason: Hypoglycemia Dicyclomine HCl (Bentyl) 20 mg PO Q6H PRN PRN PRN Reason: abdominal discomfort Erythromycin () 1 applic OPHTHALMIC 4X/DAY [facility] Last Admin: 07/05/20 09:50 Dose: 1 applicatio Documented by: Folic Acid (Folic Acid) 1 mg PO DAILY@0800 [facility] Last Admin: 07/05/20 09:50 Dose: 1 mg Documented by: Gabapentin (Neurontin) 300 mg PO Q8H PRN PRN PRN Reason: moderate to severe anxiety Glucagon () 1 mg IM .X1 PRN PRN Reason: Hypoglycemia Hydroxyzine Pamoate (Vistaril Pamoate Capsule) 50 mg PO Q4H PRN PRN PRN Reason: mild anxiety Insulin Glargine (Lantus ([facility])) 3 units SC QHS [facility] Last Admin: 07/04/20 22:28 Dose: 3 units Documented by: Insulin Human Lispro (Humalog Kwikpen ([facility])) 0 unit SC ACHS [facility]; Protocol Last Admin: 07/05/20 06:58 Dose: Not Given Documented by: Loperamide HCl (Imodium) 2 mg PO Q4H PRN PRN PRN Reason: LOOSE STOOLS Lorazepam (Ativan) 2 mg PO Q4H [facility]; Taper Stop: 07/09/20 01:59 Last Admin: 07/05/20 09:53 Dose: 2 mg Documented by: Metoprolol Tartrate (Lopressor (Beta Ericka)) 12.5 mg PO BID [facility] Last Admin: 07/05/20 09:49 Dose: 12.5 mg Documented by: Nicotine (Nicoderm Cq (Pbkc)) 21 mg TRANSDERM. DAILY [facility] Last Admin: 07/05/20 09:50 Dose: 21 mg Documented by: Ondansetron HCl (Zofran) 8 mg PO Q8H PRN PRN PRN Reason: NAUSEA Ondansetron HCl (Zofran) 4 mg IV Q8H PRN PRN PRN Reason: NAUSEA/VOMITING Pancrelipase (Creon Dr 12,000 Unit Capsule) 3 capsule PO TIDCM [facility] Last Admin: 07/05/20 09:49 Dose: 3 capsule Documented by: Senna (Senokot) 2 tablet PO QHS PRN PRN Reason: Constipation Sodium Chloride () 10 - 40 ml IV UD PRN PRN Reason: SALINE FLUSH Thiamine HCl (Vitamin B1) 100 mg PO DAILYCM [facility] Last Admin: 07/05/20 09:50 Dose: 100 mg Documented by: Trazodone HCl (Desyrel) 100 mg PO QHS PRN PRN Reason: INSOMNIA Medical Necessity - Tobacco Use Smoking Status: Former smoker Tobacco Use: Vapor Assessment/Plan 1. Acute alcohol withdrawal, chronic alcohol dependence-CIWA. Phenobarbital contraindicated due to interaction with chronic medication regimen. Ativan taper protocol. PRN regimen for somatic complaints. [employer] conusult. 2. Hypokalemia/hypomagnesia-replace per protocol, trend BMP, mag. 3. Transaminitis-chronic per family. Will obtain liver ultrasound. 4. Cystic fibrosis-on trikafta, tobramycin nebulizer. 5. Type 1 diabetes [id number]-Eyum-Mdiky with sliding scale insulin. Continue home insulin regimen. 6. Asthma-as needed albuterol inhaler. 7. Pancreatic insufficiency-on Creon. 8. Protein calorie malnutrition-as evidenced by BMI 16, cachectic appearance. Dietitian consult. 9. Tachycardia-patient's mother reports this is somewhat chronic however suspect exacerbated by #1. Will treat withdrawal and continue to monitor. Tachycardia improved. 10. Bilateral conjunctivitis-erythromycin ophthalmic ointment and warm compresses. DVT prophylaxis-not indicated, low risk This patient was seen by KITTY AntonioC under the supervision of Dr. Howell. <Stefani Howell E - Last Filed: 07/05/20 10:19> - Physical Exam Vitals/I&O's: Vital Signs Temp Pulse Resp BP Pulse Ox 98.4 F 77 18 152/102 H 97 07/05/20 09:45 07/05/20 09:49 07/05/20 09:45 07/05/20 09:45 07/05/20 09:45 Oxygen Flow Rate (L/min) 2 Oxygen Delivery Method Room Air Weight: 91 lb 7.869 oz Body Mass Index (BMI) 16.7 Intake and Output for Last 24 Hours 07/03/20 07/04/20 07/05/20 23:59 23:59 23:59 Intake Total 1664.83 / 1664.83 727.08 / 727.08 Output Total 0 / 0 Balance 1664.83 / 1664.83 727.08 / 727.08 Laboratory Results 07/04/20 13:30: WBC 4.8, RBC 4.20 L, Hgb 13.7, Hct 40.2, MCV 95.7 H, MCH 32.6 H, MCHC 34.1, RDW Std Deviation 40.6, RDW Coeff of Erika 11.7, Plt Count 154, MPV 9.7, Immature Gran % (Auto) 0.400, Neut % (Auto) 66.5, Lymph % (Auto) 18.3 L, [place]in[place] % (Auto) 12.5 H, Eos % (Auto) 1.5, Baso % (Auto) 0.8, Absolute Neuts (auto) 3.2, Absolute Lymphs (auto) 0.88, Nucleated RBC % 0 07/04/20 13:30: Sodium 137, Potassium 2.7 L*, Chloride 98, Carbon Dioxide 32.0, Anion Gap 7, BUN 12, Creatinine 0.81, Estim Creat Clear Calc 83.35, Est GFR (MDRD) Af Amer 148, Est GFR (MDRD) Non-Af 122, BUN/Creatinine Ratio 14.9, Glucose 280 H, Calcium 8.5, Total Bilirubin 1.50 H, AST 84 H, ALT 69 H, Alkaline Phosphatase 740 H, Troponin I < 0.015, Total Protein 6.8, Albumin 2.2 L, Globulin 4.6 H, Albumin/Globulin Ratio 0.5 L, Lipase < 10 L 07/04/20 13:30: Ethyl Alcohol 7.0 07/04/20 13:30: Urine Opiates Screen Cancelled, Urine Methadone Screen Cancelled, Ur Barbiturates Screen Cancelled, Ur Phencyclidine Scrn Cancelled, Ur Amphetamines Screen Cancelled, U Methamphetamin-MDMA Cancelled, U Benzodiazepines Scrn Cancelled, Urine Cocaine Screen Cancelled, U Cannabinoids Screen Cancelled, Ur Drug Screen Comment Cancelled 07/04/20 13:30: Magnesium 1.4 L 07/04/20 13:30: Hemoglobin A1c 6.6 H 07/04/20 16:44: POC Glucose 145 H 07/04/20 22:10: POC Glucose 215 H 07/05/20 02:50: Urine Opiates Screen NEGATIVE, Urine Methadone Screen NEGATIVE, Ur Barbiturates Screen POSITIVE H, Ur Phencyclidine Scrn NEGATIVE, Ur Amphetamines Screen NEGATIVE, U Methamphetamin-MDMA NEGATIVE, U Benzodiazepines Scrn NEGATIVE, Urine Cocaine Screen NEGATIVE, U Cannabinoids Screen NEGATIVE, Ur Drug Screen Comment 07/05/20 06:22: WBC 5.7, RBC 4.02 L, Hgb 13.9, Hct 40.0, MCV 99.5 H, MCH 34.6 H, MCHC 34.8, RDW Std Deviation 43.7, RDW Coeff of Erika 12.1, Plt Count 154, MPV 9.4, Immature Gran % (Auto) 0.300, Neut % (Auto) 50.6, Lymph % (Auto) 23.4, [place] % (Auto) 15.6 H, Eos % (Auto) 9.4 H, Baso % (Auto) 0.7, Absolute Neuts (auto) 2.9, Absolute Lymphs (auto) 1.34, Nucleated RBC % 0 07/05/20 06:22: Sodium 141, Potassium 3.3 L, Chloride 107, Carbon Dioxide 30.0, Anion Gap 4 L, BUN 7, Creatinine 0.76, Estim Creat Clear Calc 86.46, Est GFR (MDRD) Af Amer 158, Est GFR (MDRD) Non-Af 130, BUN/Creatinine Ratio 9.2 L, Glucose 99, Calcium 7.5 L, Total Bilirubin 1.10 H, AST 88 H, ALT 63 H, Alkaline Phosphatase 714 H, Total Protein 6.4, Albumin 2.0 L, Globulin 4.4 H, Albumin/Globulin Ratio 0.5 L 07/05/20 06:57: POC Glucose 91 Current Medications Al Hydroxide/Mg Hydroxide (Mylanta Ii) 30 ml PO Q6H PRN PRN PRN Reason: dyspesia Albuterol Sulfate (Ventolin Aerosols) 2.5 mg INHALATION Q2H PRN PRN PRN Reason: SHORTNESS OF BREATH Bisacodyl (Dulcolax) 10 mg RECTAL DAILY PRN PRN Reason: Constipation Dextrose (D50w Syringe) 0 gm IV X1 PRN; Protocol PRN Reason: Hypoglycemia Dicyclomine HCl (Bentyl) 20 mg PO Q6H PRN PRN PRN Reason: abdominal discomfort Erythromycin () 1 applic OPHTHALMIC 4X/DAY [facility] Last Admin: 07/05/20 09:50 Dose: 1 applicatio Documented by: Folic Acid (Folic Acid) 1 mg PO DAILY@0800 [facility] Last Admin: 07/05/20 09:50 Dose: 1 mg Documented by: Gabapentin (Neurontin) 300 mg PO Q8H PRN PRN PRN Reason: moderate to severe anxiety Glucagon () 1 mg IM .X1 PRN PRN Reason: Hypoglycemia Hydroxyzine Pamoate (Vistaril Pamoate Capsule) 50 mg PO Q4H PRN PRN PRN Reason: mild anxiety Insulin Glargine (Lantus (Bk)) 3 units SC QHS [facility] Last Admin: 07/04/20 22:28 Dose: 3 units Documented by: Insulin Human Lispro (Humalog Kwikpen (Bk)) 0 unit SC ACHS [facility]; Protocol Last Admin: 07/05/20 06:58 Dose: Not Given Documented by: Loperamide HCl (Imodium) 2 mg PO Q4H PRN PRN PRN Reason: LOOSE STOOLS Lorazepam (Ativan) 2 mg PO Q4H [facility]; Taper Stop: 07/09/20 01:59 Last Admin: 07/05/20 09:53 Dose: 2 mg Documented by: Metoprolol Tartrate (Lopressor (Beta Ericka)) 12.5 mg PO BID [facility] Last Admin: 07/05/20 09:49 Dose: 12.5 mg Documented by: Nicotine (Nicoderm Cq (Pbkc)) 21 mg TRANSDERM. DAILY [facility] Last Admin: 07/05/20 09:50 Dose: 21 mg Documented by: Ondansetron HCl (Zofran) 8 mg PO Q8H PRN PRN PRN Reason: NAUSEA Ondansetron HCl (Zofran) 4 mg IV Q8H PRN PRN PRN Reason: NAUSEA/VOMITING Pancrelipase (Creon Dr 12,000 Unit Capsule) 3 capsule PO TIDCM [facility] Last Admin: 07/05/20 09:49 Dose: 3 capsule Documented by: Sencomfort (Senokot) 2 tablet PO QHS PRN PRN Reason: Constipation Sodium Chloride () 10 - 40 ml IV UD PRN PRN Reason: SALINE FLUSH Thiamine HCl (Vitamin B1) 100 mg PO DAILYCM [facility] Last Admin: 07/05/20 09:50 Dose: 100 mg Documented by: Trazodone HCl (Desyrel) 100 mg PO QHS PRN PRN Reason: INSOMNIA Assessment/Plan Hospitalist note: I am seeing this patient in conjunction with Anabel Greene. I independently seen and examined the patient. Progress note above and laboratory data reviewed and I concur with above treatment plan. This morning, patient is sleepy, somnolent but he was able to communicate. No obvious stress or anxiety at this time. He is not aspirating this morning. His vital signs are stable. - Physical Exam General: Alert, lethargic but arousable, cooperative, No apparent distress. HEENT: Atraumatic, PERRLA, EOMI. Neck: Supple, No JVD, Negative Carotid Bruits, Trachea Midline, Thyroid Normal. Lungs: Diminished breath sounds bilateral, bilateral fine rales, occasional rhonchi. No wheezes, no shortness of breath. Cardiovascular: Regular rate, Regular Rhythm, Normal S1, Normal S2, PMI Normal. Abdomen: Bowel Sounds Present, Soft, Non Tender, Non-Distended, No Hepato-splenomegaly. Extremities: No clubbing, No cyanosis, No edema Skin: No rashes, No breakdown Neurological: Cranial nerves are intact, neuro grossly intact Vital Signs are stable. Assessment and plan: #1 acute alcohol withdrawal: He is on Ativan taper, thiamine, folic acid. Currently, he is drowsy and somnolent but easily arousable. Vital signs are stable. Repeat routine blood work from today revealed potassium of 3.3 which is improved, otherwise normal. LFT slightly elevated which is chronic. Urine drug screen was positive for barbiturates. Blood alcohol level was 7. Plan to continue same treatment. #2 hypokalemia/hypomagnesemia: Potassium improved, it is 3.3 today. Patient received magnesium supplement. Plan to monitor. #3 elevated LFT: It is chronic. Ultrasound liver ordered. Patient denied any right upper quadrant abdominal pain. #4 other chronic medical problems: Stable, continue current medications as above. This note was generated with [employer] dictation software. It may contain incorrect words, spelling, and punctuation that were not noted in checking the note before signing. Inpatient E&M: 86909 Subs Hosp L2
--- NOTE | 2020-07-05 10:09 | US_ITS ---
STUDY: ABDOMINAL ULTRASOUND - RIGHT UPPER QUADRANT REASON FOR VISIT: Male, 24 years old abnormal labs. Transaminitis. History of alcohol abuse. TECHNIQUE: Ultrasound evaluation of the right upper quadrant was performed with real-time and static decker-scale imaging. TECHNICAL QUALITY: Adequate. COMPARISON: None. FINDINGS: Liver: The liver measures 14.2 cm. There is increased echogenicity consistent with fatty infiltration. The bile ducts are within normal limits. There is hepatic color flow. The direction of portal flow is hepatopetal. There is no demonstrated mass lesion. Gallbladder: Normal distended gallbladder. The gallbladder wall measures 3 mm. There is a negative sonographic Adhikari''s sign. There is no pericholecystic fluid. There are no gallstones. Common Bile Duct (C.B.D.): The common bile duct measures 4 mm. Pancreas: Normal size of the head, body and proximal tail of the pancreas. The distal talus obscured. There is normal echogenicity of the pancreas. There is no demonstrated pancreatic mass or cyst. Right Kidney: Normal size of the right kidney. The right kidney measures 9.4 cm. Normal renal cortex. The right cortex measures 1.4 cm. There is no demonstrated renal mass or cyst. There is no right hydronephrosis. There is a trace of ascites in the subphrenic space US/Liver IMPRESSION: 1. Increased parenchymal echogenicity of liver suggesting fatty infiltration or other diffuse hepatocellular process. There is no focal mass. 2. Minimal ascites. 3. Otherwise normal right upper quadrant abdominal ultrasound. Electronically Signed: Jesus Hendrickson DO at 18:15 EDT Tel [phone], Service support ,
--- NOTE | 2020-07-05 10:24 | ADDICTION ---
THis writer editor met with patient in his room to conduct ASAM and MSE assessments and to start discharge planning in preparation of his planned discharge later this week. Patient was awake, alert and orietned x4 and participated appropriately. He shared that he has been experiencing some psychiatric symptoms, including seeing people in Halloween costumes and masks coming in through his window to perform medical procedures. This writer editor will communicate this with department social worker psychiatric to follow up. This writer editor provided patient with information related to agencies specializing in MH and AOD treatment in [place]. He stated that he will think about his options and will follow up with this writer editor at next visit regarding discharge planning. This writer editor will fax assessments and documentation to [facility].
[2020-07-05 10:31] LABS: Magnesium 1.7 mg/dL (1.6-2.6)
--- NOTE | 2020-07-05 11:10 | PCM.NTREPORT ---
Nutrition Therapy Report - History Nutrition Services has been consulted to:: Manage nutrient details of diet order Current diet / nutrition support order:: Carbohydrate-Controlled Diet - Anthropometric Measurements Height:: 5 ft 2 in Weight:: 41.5 kg Body Mass Index (BMI):: 16.7 - Relevant Labs Relevant Labs:: RBC 4.02 M/mm3 (4.6-6.2) L 07/05/20 06:22 MCV 99.5 fL (80-94) H 07/05/20 06:22 MCH 34.6 pg (27.0-32.0) H 07/05/20 06:22 Lymph % (Auto) 18.3 % (19-41) L 07/04/20 13:30 Cassia % (Auto) 15.6 % (0-10) H 07/05/20 06:22 Eos % (Auto) 9.4 % (0-5) H 07/05/20 06:22 Potassium 3.3 mmol/L (3.5-5.1) L 07/05/20 06:22 Anion Gap 4 (5-15) L 07/05/20 06:22 BUN/Creatinine Ratio 9.2 RATIO (10-20) L 07/05/20 06:22 Glucose 280 mg/dL (74-106) H 07/04/20 13:30 Hemoglobin A1c 6.6 % (3.8-5.6) H 07/04/20 13:30 Calcium 7.5 mg/dL (8.5-10.1) L 07/05/20 06:22 Magnesium 1.4 mg/dL (1.6-2.6) L 07/04/20 13:30 Total Bilirubin 1.10 mg/dL (0.20-1.00) H 07/05/20 06:22 AST 88 U/L (15-37) H 07/05/20 06:22 ALT 63 U/L (16-61) H 07/05/20 06:22 Alkaline Phosphatase 714 U/L (45-117) H 07/05/20 06:22 Albumin 2.0 g/dL (3.2-5.0) L 07/05/20 06:22 Globulin 4.4 g/dL (2.2-4.2) H 07/05/20 06:22 Albumin/Globulin Ratio 0.5 RATIO (0.9-2.4) L 07/05/20 06:22 Lipase < 10 U/L (73-393) L 07/04/20 13:30 - Assessment Food / Nutrition-Related History:: Pt eating breakfast without difficulty and reports appetite seems improved this morningl denies difficulty chewing/swallowing. Pt reports UBW~95-98 lbs about 1-2 weeks ago--calculated~4-6% wt loss x past 1-2 weeks and significant for malnutrition. Pt has been having N/V and unable to eat prior to admit otherwise reports ok appetite and always been low wt for ht. Pt likes chocolate ONS--will offer chocolate glucerna shake with meals TID. Pt with obvious muscle and fat depletion; +NFPA with signs of cachexia. 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 Evidence of Malnutrition Exists:: Yes Severe PCM:: Social & Environmental circumstances - Nutrition Intervention Nutrition Prescription:: Estimated Nutrition Needs~[id number] kcal and ~50-60 gm protein per day for repletion. - Food / Nutrient Delivery Interventions Summary of nutrition intervention:: Continue carbohydrate-controlled diet and encourage intake at meals. Will add 240 ml chocolate glucerna shake TID with meals per pt request. Offer additional oral nutrition supplements as toelrated and pt willing. Nutrition support ordered as / adjusted to:: No TF/TPN support ordered Nutrition education provided?: Yes - MNT Monitoring Further MNT monitoring and evaluation required?: Yes MNT Follow-up in:: 3-5 days
[2020-07-05] MEDS: Insulin Lispro 100 UNIT/ML INSULN.PEN SC ×2 (11:44→21:17)
[2020-07-05 11:55] LABS: Bedside Glucose 191 mg/dL (70-110)
[2020-07-05 17:15] LABS: Bedside Glucose 110 mg/dL (70-110)
[2020-07-05 21:35] LABS: Bedside Glucose 250 mg/dL (70-110)
[2020-07-06] VITALS (12 sets, daily range): BP systolic 144–172; BP diastolic 89–106; PULSE 91–108; RESP 16–22; TEMP 36.9–37.5; O2SAT 92–100
[2020-07-06] MEDS: LORazepam 1 MG Tablet PO ×6 (03:03→21:14)
[2020-07-06 06:04] LABS: ALB/GLOB Ratio 0.5 RATIO (0.9-2.4); AST(SGOT) 163 U/L (15-37); Alanine Aminotransfer ALT/SGPT 77 U/L (16-61); Albumin, Serum 1.9 g/dL (3.2-5.0); Alkaline Phosphatase 725 U/L (45-117); Anion Gap 4 (5-15); BUN 9 mg/dL (7-18); BUN/Creat Ratio 13.8 RATIO (10-20); Calcium,Total 7.7 mg/dL (8.5-10.1); Chloride 108 mmol/L (98-107); Creatinine, Serum 0.65 mg/dL (0.70-1.30); EST Glomerular Filtration Rate 156 mL/min (>60); Est Glom Filt Rate - Afr Amer 188 mL/min (>60); Estimated Creatinine Clearance 101.09 ml/min; Globulin 3.8 g/dL (2.2-4.2); Glucose 106 mg/dL (74-106); Magnesium 1.7 mg/dL (1.6-2.6); Potassium 3.8 mmol/L (3.5-5.1); Protein, Total 5.7 g/dL (6.4-8.2); Sodium Level 140 mmol/L (136-145)
[2020-07-06 06:40] LABS: Bedside Glucose 97 mg/dL (70-110)
[2020-07-06] MEDS: Metoprolol Tartrate 25 MG Tablet 12.5 MG PO ×2 (09:25→21:07)
[2020-07-06] MEDS: Folic Acid 1 MG Tablet PO (09:26)
[2020-07-06] MEDS: Thiamine Hydrochloride 100 MG Tablet PO (09:27)
[2020-07-06] MEDS: Erythromycin Base 1 OPTH.TUBE 1 APPLIC OPHTHALMIC ×4 (09:28→21:16)
[2020-07-06] MEDS: ELEXACAFTOR/TEZACAFTOR/IVACAFT 1 EACH TABLET.SEQ PO (09:28)
[2020-07-06] MEDS: 0.9% Saline Lock 10 ML Syringe IV (09:35)
--- NOTE | 2020-07-06 11:41 | ADDICTION ---
This functional tester typewriters met with patient in his room to process discharge planning. Patient refused discharge planning and coordination with local agencies. He stated that he is not sure what he wants to do upon completion of medical withdrawal management but agreed to contact a treatment facility on 07/07/2020 after discharging from [facility]. This functional tester typewriters reviewed recovery literature and [facility] affiliated treatment agencies in [facility] for patient to choose from. This functional tester typewriters verified that patient has this functional tester typewriters's business card so he can make contact if wanted or needed.
[2020-07-06] MEDS: Insulin Lispro 100 UNIT/ML INSULN.PEN SC ×3 (12:34→21:09)
[2020-07-06 12:45] LABS: Bedside Glucose 288 mg/dL (70-110)
--- NOTE | 2020-07-06 12:46 | PCM.PN.HOSP ---
<Bolivar Klein - Last Filed: 07/06/20 12:46> Reason for Visit: alcohol withdrawal Subjective: Pt denies hallucinations, no issues with SOB/cough, nausea/vomiting/diarrhea. Mild upper extremity tremor. C/o dry eyes. Vitals/I&O's: Vital Signs Temp Pulse Resp BP Pulse Ox 99.2 F H 101 H 16 160/106 H 100 07/06/20 12:30 07/06/20 12:30 07/06/20 12:30 07/06/20 12:30 07/06/20 12:30 Oxygen Flow Rate (L/min) 2 Oxygen Delivery Method Room Air Weight: 91 lb 7.869 oz Body Mass Index (BMI) 16.7 Intake and Output for Last 24 Hours 07/04/20 07/05/20 07/06/20 23:59 23:59 23:59 Intake Total 1664.83 / 1664.83 2532.08 / 2532.08 230 / 230 Output Total 325 / 325 Balance 1664.83 / 1664.83 2207.08 / 2207.08 230 / 230 General: Alert, Oriented x3, Cooperative HEENT: Atraumatic, PERRLA, EOMI, Normocephalic Neck: Supple, No JVD, Negative Carotid Bruits Lungs: Clear to auscultation, Normal air movement Cardiovascular: Regular rate, No murmurs Abdomen: Bowel Sounds Present, Soft, Non Tender Extremities: No edema, Capillary Refill Less than 3 Seconds Skin: No rashes, No breakdown Musculoskeletal: No Tenderness to Palpation of Joints or Extremities Neurological: Cranial nerves II-XII grossly intact Psych/Mental Status: Normal Affect, Appropriate, Alert and oriented to time, place, person, mood and affect Laboratory Results 07/05/20 17:11: POC Glucose 110 07/05/20 21:11: POC Glucose 250 H 07/06/20 05:14: Sodium 140, Potassium 3.8, Chloride 108 H, Carbon Dioxide 28.0, Anion Gap 4 L, BUN 9, Creatinine 0.65 L, Estim Creat Clear Calc 101.09, Est GFR (MDRD) Af Amer 188, Est GFR (MDRD) Non-Af 156, BUN/Creatinine Ratio 13.8, Glucose 106, Calcium 7.7 L, Magnesium 1.7, Total Bilirubin 1.00, AST 163 H, ALT 77 H, Alkaline Phosphatase 725 H, Total Protein 5.7 L, Albumin 1.9 L, Globulin 3.8, Albumin/Globulin Ratio 0.5 L 07/06/20 06:33: POC Glucose 97 07/06/20 12:28: POC Glucose 288 H Current Medications Al Hydroxide/Mg Hydroxide (Mylanta Ii) 30 ml PO Q6H PRN PRN PRN Reason: dyspesia Albuterol Sulfate (Ventolin Aerosols) 2.5 mg INHALATION Q2H PRN PRN PRN Reason: SHORTNESS OF BREATH Bisacodyl (Dulcolax) 10 mg RECTAL DAILY PRN PRN Reason: Constipation Dextrose (D50w Syringe) 0 gm IV X1 PRN; Protocol PRN Reason: Hypoglycemia Dicyclomine HCl (Bentyl) 20 mg PO Q6H PRN PRN PRN Reason: abdominal discomfort Erythromycin () 1 applic OPHTHALMIC 4X/DAY [facility] Last Admin: 07/06/20 09:28 Dose: 1 applicatio Documented by: Folic Acid (Folic Acid) 1 mg PO DAILY@0800 [facility] Last Admin: 07/06/20 09:26 Dose: 1 mg Documented by: Gabapentin (Neurontin) 300 mg PO Q8H PRN PRN PRN Reason: moderate to severe anxiety Glucagon () 1 mg IM .X1 PRN PRN Reason: Hypoglycemia Hydroxyzine Pamoate (Vistaril Pamoate Capsule) 50 mg PO Q4H PRN PRN PRN Reason: mild anxiety Insulin Glargine (Lantus (Bkc)) 3 units SC QHS [facility] Last Admin: 07/05/20 21:16 Dose: 3 units Documented by: Insulin Human Lispro (Humalog Kwikpen (Bkc)) 0 unit SC ACHS [facility]; Protocol Last Admin: 07/06/20 12:34 Dose: 2 units Documented by: Loperamide HCl (Imodium) 2 mg PO Q4H PRN PRN PRN Reason: LOOSE STOOLS Lorazepam (Ativan) 1 mg PO Q4H [facility]; Taper Stop: 07/09/20 01:59 Last Admin: 07/06/20 09:45 Dose: 1 mg Documented by: Metoprolol Tartrate (Lopressor (Beta Ericka)) 12.5 mg PO BID [facility] Last Admin: 07/06/20 09:25 Dose: 12.5 mg Documented by: Nicotine (Nicoderm Cq (Pbkc)) 21 mg TRANSDERM. DAILY [facility] Last Admin: 07/06/20 09:27 Dose: 21 mg Documented by: Ondansetron HCl (Zofran) 8 mg PO Q8H PRN PRN PRN Reason: NAUSEA Ondansetron HCl (Zofran) 4 mg IV Q8H PRN PRN PRN Reason: NAUSEA/VOMITING Pancrelipase (Kush Dr 12,000 Unit Capsule) 3 capsule PO TIDCM [facility] Last Admin: 07/06/20 12:36 Dose: 3 capsule Documented by: Senna (Senokot) 2 tablet PO QHS PRN PRN Reason: Constipation Sodium Chloride () 10 - 40 ml IV UD PRN PRN Reason: SALINE FLUSH Last Admin: 07/06/20 09:35 Dose: 10 ml Documented by: Thiamine HCl (Vitamin B1) 100 mg PO DAILYCM [facility] Last Admin: 07/06/20 09:27 Dose: 100 mg Documented by: Trazodone HCl (Desyrel) 100 mg PO QHS PRN PRN Reason: INSOMNIA STROKE Vital Signs/Narrative: Vital Signs Temp Pulse Resp BP Pulse Ox 07/06/20 12:30 99.2 F H 101 H 16 160/106 H 100 07/06/20 09:25 108 H 172/98 H Medical Necessity - Tobacco Use Smoking Status: Current every day smoker Tobacco Use: Vapor Assessment/Plan 1. Alcohol abuse with withdrawal-continue Ativan taper, phenobarbital to indicated with medication interactions. Patient to follow-up with 180 at discharge. Patient plans to also attend AA at discharge. 2. Transaminitis-chronic, liver ultrasound suggests increased parenchymal echogenicity fatty liver disease or other diffuse hepatocellular process, minimal ascites, otherwise normal. Will need follow-up CMP as outpatient. 3. Cystic fibrosis and asthma-no exacerbations. 4. Type 1 diabetes mellitus-continue Lantus plus sliding scale insulin. 5. Pancreatic insufficiency-continue Creon DVT prophylaxis: Early ambulation DC planning: Continue withdrawal taper This patient was seen by Bolivar Klein PA-C under the supervision of Doctor Lynda. <Stefani Howell E - Last Filed: 07/06/20 12:56> Vitals/I&O's: Vital Signs Temp Pulse Resp BP Pulse Ox 99.2 F H 101 H 16 160/106 H 100 07/06/20 12:30 07/06/20 12:30 07/06/20 12:30 07/06/20 12:30 07/06/20 12:30 Oxygen Flow Rate (L/min) 2 Oxygen Delivery Method Room Air Weight: 91 lb 7.869 oz Body Mass Index (BMI) 16.7 Intake and Output for Last 24 Hours 07/04/20 07/05/20 07/06/20 23:59 23:59 23:59 Intake Total 1664.83 / 1664.83 2532.08 / 2532.08 230 / 230 Output Total 325 / 325 Balance 1664.83 / 1664.83 2207.08 / 2207.08 230 / 230 Laboratory Results 07/05/20 17:11: POC Glucose 110 07/05/20 21:11: POC Glucose 250 H 07/06/20 05:14: Sodium 140, Potassium 3.8, Chloride 108 H, Carbon Dioxide 28.0, Anion Gap 4 L, BUN 9, Creatinine 0.65 L, Estim Creat Clear Calc 101.09, Est GFR (MDRD) Af Amer 188, Est GFR (MDRD) Non-Af 156, BUN/Creatinine Ratio 13.8, Glucose 106, Calcium 7.7 L, Magnesium 1.7, Total Bilirubin 1.00, AST 163 H, ALT 77 H, Alkaline Phosphatase 725 H, Total Protein 5.7 L, Albumin 1.9 L, Globulin 3.8, Albumin/Globulin Ratio 0.5 L 07/06/20 06:33: POC Glucose 97 07/06/20 12:28: POC Glucose 288 H Current Medications Al Hydroxide/Mg Hydroxide (Mylanta Ii) 30 ml PO Q6H PRN PRN PRN Reason: dyspesia Albuterol Sulfate (Ventolin Aerosols) 2.5 mg INHALATION Q2H PRN PRN PRN Reason: SHORTNESS OF BREATH Bisacodyl (Dulcolax) 10 mg RECTAL DAILY PRN PRN Reason: Constipation Dextrose (D50w Syringe) 0 gm IV X1 PRN; Protocol PRN Reason: Hypoglycemia Dicyclomine HCl (Bentyl) 20 mg PO Q6H PRN PRN PRN Reason: abdominal discomfort Erythromycin () 1 applic OPHTHALMIC 4X/DAY [facility] Last Admin: 07/06/20 09:28 Dose: 1 applicatio Documented by: Folic Acid (Folic Acid) 1 mg PO DAILY@0800 [facility] Last Admin: 07/06/20 09:26 Dose: 1 mg Documented by: Gabapentin (Neurontin) 300 mg PO Q8H PRN PRN PRN Reason: moderate to severe anxiety Glucagon () 1 mg IM .X1 PRN PRN Reason: Hypoglycemia Hydroxyzine Pamoate (Vistaril Pamoate Capsule) 50 mg PO Q4H PRN PRN PRN Reason: mild anxiety Insulin Glargine (Lantus (Bk)) 3 units SC QHS [facility] Last Admin: 07/05/20 21:16 Dose: 3 units Documented by: Insulin Human Lispro (Humalog Kwikpen ([facility])) 0 unit SC [facility]; Protocol Last Admin: 07/06/20 12:34 Dose: 2 units Documented by: Loperamide HCl (Imodium) 2 mg PO Q4H PRN PRN PRN Reason: LOOSE STOOLS Lorazepam (Ativan) 1 mg PO Q4H [facility]; Taper Stop: 07/09/20 01:59 Last Admin: 07/06/20 09:45 Dose: 1 mg Documented by: Metoprolol Tartrate (Lopressor (Beta Ericka)) 12.5 mg PO BID [facility] Last Admin: 07/06/20 09:25 Dose: 12.5 mg Documented by: Nicotine (Nicoderm Cq (Pbkc)) 21 mg TRANSDERM. DAILY [facility] Last Admin: 07/06/20 09:27 Dose: 21 mg Documented by: Ondansetron HCl (Zofran) 8 mg PO Q8H PRN PRN PRN Reason: NAUSEA Ondansetron HCl (Zofran) 4 mg IV Q8H PRN PRN PRN Reason: NAUSEA/VOMITING Pancrelipase (Creon Dr 12,000 Unit Capsule) 3 capsule PO TIDCM [facility] Last Admin: 07/06/20 12:36 Dose: 3 capsule Documented by: Senna (Senokot) 2 tablet PO QHS PRN PRN Reason: Constipation Sodium Chloride () 10 - 40 ml IV UD PRN PRN Reason: SALINE FLUSH Last Admin: 07/06/20 09:35 Dose: 10 ml Documented by: Thi[facility] B1) [facility] Last Admin: 08/06/20 09:27 Dose: 100 mg Documented by: Trazodone HCl (Desyrel) 100 mg PO QHS PRN PRN Reason: INSOMNIA STROKE Vital Signs/Narrative: Vital Signs Temp Pulse Resp BP Pulse Ox 07/06/20 12:30 99.2 F H 101 H 16 160/106 H 100 07/06/20 09:25 108 H 172/98 H Assessment/Plan Hospitalist note: I am seeing this patient in conjunction with Bolivar Klein. I independently seen and examined the patient. Progress note above reviewed and I concur with above treatment plan. Today, he is feeling better. He is alert and oriented x3. Slept okay last night, normal hallucination. Vital signs are stable. - Physical Exam General: Alert, oriented x3, cooperative, No apparent distress. HEENT: Atraumatic, PERRLA, EOMI. Neck: Supple, No JVD, Negative Carotid Bruits, Trachea Midline, Thyroid Normal. Lungs: Diminished breath sounds bilateral, bilateral fine rales, occasional rhonchi. No wheezes, no shortness of breath. Cardiovascular: Regular rate, Regular Rhythm, Normal S1, Normal S2, PMI Normal. Abdomen: Bowel Sounds Present, Soft, Non Tender, Non-Distended, No Hepato-splenomegaly. Extremities: No clubbing, No cyanosis, No edema Skin: No rashes, No breakdown Neurological: Cranial nerves are intact, neuro grossly intact Vital Signs are stable. Assessment and plan: #1 acute alcohol withdrawal: Remained on Ativan taper, thiamine, folic acid. Today, he is more alert and noted x3, not somnolent. Vital signs are stable. Potassium was replaced and corrected. LFT slightly elevated which is chronic. Urine drug screen was positive for barbiturates. Blood alcohol level was 7. Plan to continue same treatment. #2 hypokalemia/hypomagnesemia: Potassium improved, it is 3.8 today. Serum magnesium is 1.7, normalized. #3 elevated LFT: It is chronic. Ultrasound reviewed, revealed fatty infiltration, no focal mass, minimal ascites. Probably due to chronic liver disease. #4 other chronic medical problems: Stable, continue current medications as above. This note was generated with [employer] dictation software. It may contain incorrect words, spelling, and punctuation that were not noted in checking the note before signing. Inpatient E&M: 52900 Subs Hosp L2
[2020-07-06] MEDS: Acetaminophen 500 MG Tablet PO (13:35)
--- NOTE | 2020-07-06 14:19 | CHAPLAIN ---
Type of Pastoral Visit _x__ Initial Visit ___ Follow-up Visit ___ On-call Visit ___ General Patient Visit ___ Spiritual Assessment ___ Family Conference ___ Bereavement ___ Rapid Response ___ Code Blue ___ Other (describe below) Pastoral Care Referral From _x__ Patient ___ Family ___ Nurse ___ Physician ___ Financial Management Consultant ___ Financial Officer ___ Other (describe below) Sacrament/Intervention _x__ Active listening ___ Anointing ___ Anabaptist ___ Bereavement ___ Communion ___ Tati exploration ___ _x__ Life review ___ Prayer ___ Reconciliation ___ Sacrament of Sick _x__ Supportive presence ___ Wedding ___ Other (describe below) Pastoral Comments patient willing to talk about his life and interests; pt focused on his CF condition; pt states he is able to handle his recovery; pt expresses appreciation for time and attention given to him
[2020-07-06 16:51] LABS: Bedside Glucose 312 mg/dL (70-110)
[2020-07-06 20:55] LABS: Bedside Glucose 338 mg/dL (70-110)
[2020-07-07] VITALS: PULSE 94
[2020-07-07] MEDS: traZODone 100 MG Tablet PO (00:41)
[2020-07-07 02:13] VITALS: BP 131/81; PULSE 87; RESP 18; TEMP 36.8; O2SAT 95
[2020-07-07] MEDS: LORazepam 1 MG Tablet PO ×2 (02:16→09:14)
[2020-07-07 04:30] VITALS: PULSE 83
[2020-07-07] MEDS: Insulin Lispro 100 UNIT/ML INSULN.PEN SC (06:41)
[2020-07-07 06:56] LABS: Bedside Glucose 206 mg/dL (70-110)
[2020-07-07 06:59] VITALS: PULSE 92
[2020-07-07 09:10] VITALS: BP 141/94; PULSE 97; RESP 16; TEMP 37.4; O2SAT 95
[2020-07-07] MEDS: Folic Acid 1 MG Tablet PO (09:15)
[2020-07-07] MEDS: Erythromycin Base 1 OPTH.TUBE 1 APPLIC OPHTHALMIC (09:15)
[2020-07-07] MEDS: Thiamine Hydrochloride 100 MG Tablet PO (09:15)
[2020-07-07 09:16] VITALS: PULSE 97
[2020-07-07] MEDS: Metoprolol Tartrate 25 MG Tablet 12.5 MG PO (09:16)
[2020-07-07] MEDS: ELEXACAFTOR/TEZACAFTOR/IVACAFT 1 EACH TABLET.SEQ PO (09:16)
[2020-07-07] MEDS: 0.9% Saline Lock 10 ML Syringe IV (09:23)
--- NOTE | 2020-07-07 10:56 | PCM.DC ---
- Discharge Diagnoses Current Active Problems: Current Active and Chronic Problems Cystic fibrosis (Chronic) Alcohol abuse (Chronic) Asthma (Chronic) Type 1 diabetes mellitus (Chronic) Pancreatic insufficiency (Chronic) You will use the following diet at home:: Other - no alcohol Your food should be the consistency of: Regular Your liquids should be the consistency of: Regular/Thin Discharge Activity: Return to Normal Activity Allergies/Adverse Reactions: Allergies No Known Allergies Allergy (Verified 11/14/19 02:57) Medications to take at Discharge Elexacaftor/Tezacaftor/Ivacaft [Trikafta 100/50/75 mg-150 mg] 2 ea PO DAILY 11/14/19 Lipase/Protease/Amylase [Creon Dr 36,000 Units Capsule] 2 - 3 cap PO TIDCM 11/14/19 Insulin Glargine,Hum.rec.anlog [Basaglar Kwikpen U-100] 3 unit SQ QHS 07/04/20 Insulin Lispro [Admelog Solostar] See Protocol SQ TIDCM 07/04/20 Tobramycin/Nebulizer [Tobramycin Octavio 300 mg/5 ml] 300 mg IH BID 07/04/20 Metoprolol Tartrate [Lopressor (beta pao)] 12.5 mg PO BID #60 tab 07/07/20 The following prescriptions were given: Metoprolol Tartrate [Lopressor (beta pao)] 12.5 mg PO BID #60 tab Transmission Status: Pending to [facility] [id number] Primary Care Physician: Lenora Sutton DO [Primary Care Provider] - Please follow up with your Primary Care Physician in: 1-2 weeks Test Results: Test results from this visit will be discussed in further detail at your follow-up appointment, if applicable. Please Follow Up With: [facility] Program When: 1 day Proposed Discharge Date: 07/07/20
--- NOTE | 2020-07-07 11:54 | DS.PCM_ITS ---
<Bolivar Klein - Last Filed: 07/07/20 11:54> Discharge Date and Diagnosis Date of Admission: 07/04/20 Date of Discharge: 07/07/20 - Primary Discharge Diagnosis Acute Problems: Alcoholism with acute withdrawal Cystic fibrosis, asthma Type 1 diabetes Pancreatic insufficiency - Secondary Discharge Diagnosis Chronic Problems: Chronic Problems Cystic fibrosis (Chronic) Alcohol abuse (Chronic) Asthma (Chronic) Type 1 diabetes mellitus (Chronic) Pancreatic insufficiency (Chronic) Hospital Course and Treatment Imaging Results: RAD/Chest 1 View (Portable) IMPRESSION: Prominence of the right hilum with possible right perihilar infiltrate. Increased markings in the right upper lobe as well as at the lung bases. Follow-up is recommended. US/Liver IMPRESSION: 1. Increased parenchymal echogenicity of liver suggesting fatty infiltration or other diffuse hepatocellular process. There is no focal mass. 2. Minimal ascites. 3. Otherwise normal right upper quadrant abdominal ultrasound. Operations: None Procedures: None Summary of Care Provided: Hospital course: The patient is a 24 year old M with past medical history as above who presented to the emergency room with alcohol withdrawal requesting assistance with detox. Reportedly the patient was drinking a whole bottle of liquor plus a 12 pack of beer at a time and had been using for about 4 to 5 years. He had never been to detox before. He had been hallucinating at home and had nausea and vomiting. He had an alcohol level of 7 time of admission. He could not be placed on the phenobarbital taper as he has an interaction with his cystic fibrosis medications. Instead he was placed on an Ativan taper. He had significant hallucinations and confusion at the beginning of his detox, however this resolved after the first night. Patient had an uneventful rest of his stay here. He was discharged home in stable condition. He will follow-up with 180 this week. Follow-up with PCP in 1 to 2 weeks. This patient was seen by Bolivar Klein PA-C under the supervision of Doctor Howell. - Physical Exam Vitals/I&O's: Vital Signs Temp Pulse Resp BP Pulse Ox 99.3 F H 97 16 141/94 H 95 07/07/20 09:10 07/07/20 09:16 07/07/20 09:10 07/07/20 09:10 07/07/20 09:10 Oxygen Flow Rate (L/min) 2 Oxygen Delivery Method Room Air Weight: 91 lb 7.869 oz Body Mass Index (BMI) 16.7 Intake and Output for Last 24 Hours 07/05/20 07/06/20 07/07/20 23:59 23:59 23:59 Intake Total 2532.08 / 2532.08 2190 / 2190 300 / 300 Output Total 325 / 325 Balance 2207.08 / 2207.08 2190 / 2190 300 / 300 General: Alert, Oriented x3, Cooperative HEENT: Atraumatic, PERRLA, EOMI, Normocephalic Neck: Supple, No JVD, Negative Carotid Bruits Lungs: Clear to auscultation, Normal air movement Cardiovascular: Regular rate, No murmurs Abdomen: Bowel Sounds Present, Soft, Non Tender Extremities: No edema, Capillary Refill Less than 3 Seconds Skin: No rashes, No breakdown Musculoskeletal: No Tenderness to Palpation of Joints or Extremities Neurological: Cranial nerves II-XII grossly intact Psych/Mental Status: Normal Affect, Appropriate, Alert and oriented to time, place, person, mood and affect Laboratory Results 07/06/20 12:28: POC Glucose 288 H 07/06/20 16:31: POC Glucose 312 H 07/06/20 20:50: POC Glucose 338 H 07/07/20 06:34: POC Glucose 206 H Current Medications Acetaminophen (Tylenol) 500 mg PO Q6H PRN PRN PRN Reason: Pain or Fever Last Admin: 07/06/20 13:35 Dose: 500 mg Documented by: Al Hydroxide/Mg Hydroxide (Mylanta Ii) 30 ml PO Q6H PRN PRN PRN Reason: dyspesia Albuterol Sulfate (Ventolin Aerosols) 2.5 mg INHALATION Q2H PRN PRN PRN Reason: SHORTNESS OF BREATH Bisacodyl (Dulcolax) 10 mg RECTAL DAILY PRN PRN Reason: Constipation Dextrose (D50w Syringe) 0 gm IV X1 PRN; Protocol PRN Reason: Hypoglycemia Dicyclomine HCl (Bentyl) 20 mg PO Q6H PRN PRN PRN Reason: abdominal discomfort Erythromycin () 1 applic OPHTHALMIC 4X/DAY [facility] Last Admin: 07/07/20 09:15 Dose: 1 applicatio Documented by: Folic Acid (Folic Acid) 1 mg PO DAILY@0800 [facility] Last Admin: 07/07/20 09:15 Dose: 1 mg Documented by: Gabapentin (Neurontin) 300 mg PO Q8H PRN PRN PRN Reason: moderate to severe anxiety Glucagon () 1 mg IM .X1 PRN PRN Reason: Hypoglycemia Hydroxyzine Pamoate (Vistaril Pamoate Capsule) 50 mg PO Q4H PRN PRN PRN Reason: mild anxiety Insulin Glargine (Lantus (Bk)) 3 units SC QHS [facility] Last Admin: 07/06/20 21:11 Dose: 3 units Documented by: Insulin Human Lispro (Humalog Kwikpen (Bk)) 0 unit SC [facility]; Protocol Last Admin: 07/07/20 06:41 Dose: 1 units Documented by: Loperamide HCl (Imodium) 2 mg PO Q4H PRN PRN PRN Reason: LOOSE STOOLS Lorazepam (Ativan) 1 mg PO Q6H [facility]; Taper Stop: 07/09/20 01:59 Last Admin: 07/07/20 09:14 Dose: 1 mg Documented by: Metoprolol Tartrate (Lopressor (Beta Ericka)) 12.5 mg PO BID [facility] Last Admin: 07/07/20 09:16 Dose: 12.5 mg Documented by: Nicotine (Nicoderm Cq (Pbkc)) 21 mg TRANSDERM. DAILY [facility] Last Admin: 07/07/20 09:16 Dose: 21 mg Documented by: Ondansetron HCl (Zofran) 8 mg PO Q8H PRN PRN PRN Reason: NAUSEA Ondansetron HCl (Zofran) 4 mg IV Q8H PRN PRN PRN Reason: NAUSEA/VOMITING Pancrelipase (Creon Dr 12,000 Unit Capsule) 3 capsule PO TIDCM [facility] Last Admin: 07/07/20 09:14 Dose: 3 capsule Documented by: Senna (Senokot) 2 tablet PO QHS PRN PRN Reason: Constipation Sodium Chloride () 10 - 40 ml IV UD PRN PRN Reason: SALINE FLUSH Last Admin: 07/07/20 09:23 Dose: 10 ml Documented by: [facility]) [facility] Last Admin: 07/07/20 09:15 Dose: 100 mg Documented by: Trazodone HCl (Desyrel) 100 mg PO QHS PRN PRN Reason: INSOMNIA Last Admin: 07/07/20 00:41 Dose: 100 mg Documented by: Discharge Diet: - - no alcohol Discharge Activity: Return to Normal Activity Home Medications: Medications to take at Discharge Elexacaftor/Tezacaftor/Ivacaft [Trikafta 100/50/75 mg-150 mg] 2 ea PO DAILY 11/14/19 Lipase/Protease/Amylase [Kush Molina 36,000 Units Capsule] 2 - 3 cap PO TIDCM 11/14/19 Insulin Glargine,Hum.rec.anlog [Basaglar Kwikpen U-100] 3 unit SQ QHS 07/04/20 Insulin Lispro [Admelog Solostar] See Protocol SQ TIDCM 07/04/20 Tobramycin/Nebulizer [Tobramycin Octavio 300 mg/5 ml] 300 mg IH BID 07/04/20 Metoprolol Tartrate [Lopressor (beta ericka)] 12.5 mg PO BID #60 tab 07/07/20 Nicotine [Nicotine Patch] 21 mg TRANSDERM. DAILY #14 patch.[email or web address] 07/07/20 Following Prescriptions Were Given to Patient: Metoprolol Tartrate [Lopressor (beta ericka)] 12.5 mg PO BID #60 tab Transmission Status: Received by MCKENZIE [address] Nicotine [Nicotine Patch] 21 mg TRANSDERM. DAILY #14 patch.[email or web address] Prescription Printed Primary Care Physician: Lenora Sutton DO [Primary Care Provider] - Please follow up with your Primary Care Physician in: 1-2 weeks Please Follow Up With: 180 Program When: 1 day Disposition: Home Minutes spent on discharge:: 35 Patient Condition:: Stable Medical Necessity - Tobacco Use Smoking Status: Current every day smoker Tobacco Use: Vapor Meaningful Use Info Meaningful Use Diagnoses (Choose all that apply): None applicable <Stefnai Howell - Last Filed: 07/07/20 12:31> Discharge Date and Diagnosis - Secondary Discharge Diagnosis Chronic Problems: Chronic Problems Cystic fibrosis (Chronic) Alcohol abuse (Chronic) Asthma (Chronic) Type 1 diabetes mellitus (Chronic) Pancreatic insufficiency (Chronic) Hospital Course and Treatment Summary of Care Provided: Hospitalist note: Discharge summary above reviewed and I concur with above discharge treatment plan. Patient presented to the emergency room with alcohol withdrawal symptoms requesting admission for medical stabilization. Reportedly, patient has been drinking a whole bottle of liquor +12 pack of beer daily. He had hallucination as well as nausea and vomiting at home and upon arrival to the emergency department. His admission blood alcohol level was 7. Patient was started on Ativan taper along with folic acid, thiamine and multivitamins. He was not placed on phenobarbital taper because of interaction with his cystic fibrosis medications. The first day of admission, patient had significant hallucination and confusion which resolved after the first night post admission. He was found to have hypokalemia and his potassium was replaced and corrected. Other routine blood work was unremarkable. LFT was elevated because of fatty infiltration of the liver. Ultrasound liver done and revealed fatty infiltration, no focal mass and revealed minimal ascites. With treatment, patient symptoms improved. Patient discharged home in a stable condition, discharged on his previous home medications without any changes, plan to follow-up with 180 program, recommended follow-up with PCP in 1 to 2 weeks. - Physical Exam General: Alert, oriented x3, cooperative, No apparent distress. HEENT: Atraumatic, PERRLA, EOMI. Neck: Supple, No JVD, Negative Carotid Bruits, Trachea Midline, Thyroid Normal. Lungs: Diminished breath sounds bilateral, bilateral fine rales, occasional rhonchi. No wheezes, no shortness of breath. Cardiovascular: Regular rate, Regular Rhythm, Normal S1, Normal S2, PMI Normal. Abdomen: Bowel Sounds Present, Soft, Non Tender, Non-Distended, No Hepato- splenomegaly. Extremities: No clubbing, No cyanosis, No edema Skin: No rashes, No breakdown Neurological: Cranial nerves are intact, neuro grossly intact Vital Signs are stable. This note was generated with [employer] dictation software. It may contain incorrect words, spelling, and punctuation that were not noted in checking the note before signing. - Physical Exam Vitals/I&O's: Vital Signs Temp Pulse Resp BP Pulse Ox 99.3 F H 97 16 141/94 H 95 07/07/20 09:10 07/07/20 09:16 07/07/20 09:10 07/07/20 09:10 07/07/20 09:10 Oxygen Flow Rate (L/min) 2 Oxygen Delivery Method Room Air Weight: 91 lb 7.869 oz Body Mass Index (BMI) 16.7 Intake and Output for Last 24 Hours 07/05/20 07/06/20 07/07/20 23:59 23:59 23:59 Intake Total 2532.08 / 2532.08 2190 / 2190 300 / 300 Output Total 325 / 325 Balance 2207.08 / 2207.08 2190 / 2190 300 / 300 Laboratory Results 07/06/20 12:28: POC Glucose 288 H 07/06/20 16:31: POC Glucose 312 H 07/06/20 20:50: POC Glucose 338 H 07/07/20 06:34: POC Glucose 206 H Current Medications Acetaminophen (Tylenol) 500 mg PO Q6H PRN PRN PRN Reason: Pain or Fever Last Admin: 07/06/20 13:35 Dose: 500 mg Documented by: Al Hydroxide/Mg Hydroxide (Mylanta Ii) 30 ml PO Q6H PRN PRN PRN Reason: dyspesia Albuterol Sulfate (Ventolin Aerosols) 2.5 mg INHALATION Q2H PRN PRN PRN Reason: SHORTNESS OF BREATH Bisacodyl (Dulcolax) 10 mg RECTAL DAILY PRN PRN Reason: Constipation Dextrose (D50w Syringe) 0 gm IV X1 PRN; Protocol PRN Reason: Hypoglycemia Dicyclomine HCl (Bentyl) 20 mg PO Q6H PRN PRN PRN Reason: abdominal discomfort Erythromycin () 1 applic OPHTHALMIC 4X/DAY [facility] Last Admin: 07/07/20 09:15 Dose: 1 applicatio Documented by: Folic Acid (Folic Acid) 1 mg PO DAILY@0800 [facility] Last Admin: 07/07/20 09:15 Dose: 1 mg Documented by: Gabapentin (Neurontin) 300 mg PO Q8H PRN PRN PRN Reason: moderate to severe anxiety Glucagon () 1 mg IM .X1 PRN PRN Reason: Hypoglycemia Hydroxyzine Pamoate (Vistaril Pamoate Capsule) 50 mg PO Q4H PRN PRN PRN Reason: mild anxiety Insulin Glargine (Lantus (Bkc)) 3 units SC QHS [facility] Last Admin: 07/06/20 21:11 Dose: 3 units Documented by: Insulin Human Lispro (Humalog Kwikpen (Bk)) 0 unit SC [facility]; Protocol Last Admin: 07/07/20 06:41 Dose: 1 units Documented by: Loperamide HCl (Imodium) 2 mg PO Q4H PRN PRN PRN Reason: LOOSE STOOLS Lorazepam (Ativan) 1 mg PO Q6H [facility]; Taper Stop: 07/09/20 01:59 Last Admin: 07/07/20 09:14 Dose: 1 mg Documented by: Metoprolol Tartrate (Lopressor (Beta Ericka)) 12.5 mg PO BID [facility] Last Admin: 07/07/20 09:16 Dose: 12.5 mg Documented by: Nicotine (Nicoderm Cq (Pbkc)) 21 mg TRANSDERM. DAILY [facility] Last Admin: 07/07/20 09:16 Dose: 21 mg Documented by: Ondansetron HCl (Zofran) 8 mg PO Q8H PRN PRN PRN Reason: NAUSEA Ondansetron HCl (Zofran) 4 mg IV Q8H PRN PRN PRN Reason: NAUSEA/VOMITING Pancrelipase (Creon Dr 12,000 Unit Capsule) 3 capsule PO TIDCM [facility] Last Admin: 07/07/20 09:14 Dose: 3 capsule Documented by: Janie (Senokot) 2 tablet PO QHS PRN PRN Reason: Constipation Sodium Chloride () 10 - 40 ml IV UD PRN PRN Reason: SALINE FLUSH Last Admin: 07/07/20 09:23 Dose: 10 ml Documented by: Thiamine [facility] ([facility]amin B1) [facility] Last Admin: 07/07/20 09:15 Dose: 100 mg Documented by: Trazodone HCl (Desyrel) 100 mg PO QHS PRN PRN Reason: INSOMNIA Last Admin: 07/07/20 00:41 Dose: 100 mg Documented by: Disposition: Home Minutes spent on discharge:: 28 Patient Condition:: Stable Meaningful Use Info Meaningful Use Diagnoses (Choose all that apply): None applicable Inpatient E&M: 72169 [facility]
== END 2020-07-07 12:40 | disposition home or self-care (01) | DRG 775 ==
LOC: ED 13:31 → PCU 14:37
PROVIDERS: Nurse Practitioner Family; Admitting Provider Internal Medicine; Emergency Provider Emergency Medicine; Visit Provider Hospitalist
DX: F10.239 Alcohol dependence with withdrawal, unspecified (principal); J45.909 Unspecified asthma, uncomplicated; E84.9 Cystic fibrosis, unspecified; K86.89 Other specified diseases of pancreas; Y90.0 Blood alcohol level of less than 20 mg/100 ml; E10.9 Type 1 diabetes mellitus without complications; E87.6 Hypokalemia; E46 Unspecified protein-calorie malnutrition; Z68.1 Body mass index [BMI] 19.9 or less, adult; R00.0 Tachycardia, unspecified; H10.9 Unspecified conjunctivitis; G93.41 Metabolic encephalopathy; F17.290 Nicotine dependence, other tobacco product, uncomplicated
CPT/HCPCS: 36415; 71045; 76705; 80053; 80307; 80320; 82962; 83036; 83690; 83735; 84484; 85025; 93005; 97802; 99285; J7030; A4216; G0480

== ENCOUNTER → 2022-08-06 | Outpatient (CLI) | payer MEDICAID, SELFPAY ==
[2022-08-06 08:28] LABS: Absolute Lymphocyte Count 1.83 X10^3/uL (0.83-4.51); Absolute Neutrophil Count 4.8 X10^3/uL (2.0-7.7); Basophil# 0.13 X10^3/uL; Basophil% 1.6 % (0-1); Eosinophil# 0.66 X10^3/uL; Eosinophils% 7.9 % (0-5); Hematocrit 34.3 % (40-54); Hemoglobin 11.5 g/dL (13.0-16.5); Lymphocyte # 1.83 X10^3/ul (0.83-4.51); Lymphocyte % 21.9 % (19-41); Mean Corp Hgb Conc 33.5 g/dL (32-36); Mean Corpuscular Hgb 31.3 pg (27.0-32.0); Mean Corpuscular Volume 93.5 fL (80-94); Mean Platelet Vol. 8.8 fl (6.2-12.0); Monocyte# 0.89 X10^3/uL; Monocyte% 10.6 % (0-10); NRBC Flagged by Analyzer 0 % (0-5); Neutrophil # 4.82 X10^3/uL (2.7-7.7); Neutrophil % 57.5 % (47-70); Platelet Count 422 K/mm3 (150-450); RBC Distribution Width CV 12.6 % (11.6-14.6); RBC Distribution Width SD 43.7 fl (35.1-43.9); Red Blood Count 3.67 M/mm3 (4.6-6.2); White Blood Count 8.4 K/mm3 (4.4-11.0)
[2022-08-06 08:41] LABS: Vancomycin, Trough Level 19.5 ug/mL (5.0-15.0)
[2022-08-07 16:42] LABS: Creatinine, Serum 1.04 mg/dL (0.70-1.30); EST Glomerular Filtration Rate 90 mL/min (>60); Est Glom Filt Rate - Afr Amer 109 mL/min (>60)
== END | disposition home or self-care (01) ==
LOC: MEDOUTP 08:03
DX: M00.80 Arthritis due to other bacteria, unspecified joint (principal); B96.5 Pseudomonas (aeruginosa) (mallei) (pseudomallei) as the cause of diseases classified elsewhere
CPT/HCPCS: 36592; 80202; 82565; 85025; A4216

== ENCOUNTER → 2022-11-15 | Outpatient (CLI) | payer MEDICAID, SELFPAY ==
[2022-11-15 13:40] LABS: Absolute Lymphocyte Count 1.66 X10^3/uL (0.83-4.51); Absolute Neutrophil Count 4.2 X10^3/uL (2.0-7.7); Basophil# 0.09 X10^3/uL; Basophil% 1.2 % (0-1); Eosinophil# 0.63 X10^3/uL; Eosinophils% 8.6 % (0-5); Hematocrit 34.1 % (40-54); Hemoglobin 11.2 g/dL (13.0-16.5); Lymphocyte # 1.66 X10^3/ul (0.83-4.51); Lymphocyte % 22.6 % (19-41); Mean Corp Hgb Conc 32.8 g/dL (32-36); Mean Corpuscular Hgb 30.4 pg (27.0-32.0); Mean Corpuscular Volume 92.7 fL (80-94); Monocyte# 0.73 X10^3/uL; Monocyte% 9.9 % (0-10); NRBC Flagged by Analyzer 0 % (0-5); Neutrophil # 4.18 X10^3/uL (2.7-7.7); Neutrophil % 56.9 % (47-70); Platelet Count 327 K/mm3 (150-450); RBC Distribution Width CV 12.9 % (11.6-14.6); RBC Distribution Width SD 43.6 fl (35.1-43.9); Red Blood Count 3.68 M/mm3 (4.6-6.2); White Blood Count 7.4 K/mm3 (4.4-11.0)
[2022-11-15 14:23] LABS: Vancomycin, Trough Level 27.6 ug/mL (5.0-15.0)
[2022-11-15 15:08] LABS: ALB/GLOB Ratio 0.3 RATIO (0.9-2.4); AST(SGOT) 150 U/L (15-37); Alanine Aminotransfer ALT/SGPT 67 U/L (16-61); Albumin, Serum 1.9 g/dL (3.2-5.0); Alkaline Phosphatase 947 U/L (45-117); Anion Gap -3 (5-15); BUN 16 mg/dL (7-18); BUN/Creat Ratio 17.9 RATIO (10-20); Calcium,Total 8.8 mg/dL (8.5-10.1); Chloride 105 mmol/L (98-107); Creatinine, Serum 0.89 mg/dL (0.70-1.30); EST Glomerular Filtration Rate 107 mL/min (>60); Est Glom Filt Rate - Afr Amer 129 mL/min (>60); Glucose 375 mg/dL (74-106); Potassium 5.2 mmol/L (3.5-5.1); Protein, Total 8.9 g/dL (6.4-8.2); Sodium Level 132 mmol/L (136-145)
== END | disposition home or self-care (01) ==
LOC: MEDOUTP 12:47
DX: E84.9 Cystic fibrosis, unspecified (principal); J18.9 Pneumonia, unspecified organism
CPT/HCPCS: 36592; 80053; 80202; 85025; A4216

== ENCOUNTER → 2022-11-18 | Outpatient (CLI) | payer MEDICAID, SELFPAY ==
[2022-11-18 08:41] LABS: Absolute Lymphocyte Count 1.49 X10^3/uL (0.83-4.51); Absolute Neutrophil Count 3.5 X10^3/uL (2.0-7.7); Basophil# 0.08 X10^3/uL; Basophil% 1.2 % (0-1); Eosinophil# 0.81 X10^3/uL; Eosinophils% 12.6 % (0-5); Hematocrit 33.2 % (40-54); Lymphocyte # 1.49 X10^3/ul (0.83-4.51); Lymphocyte % 23.2 % (19-41); Mean Corp Hgb Conc 33.1 g/dL (32-36); Mean Corpuscular Hgb 30.6 pg (27.0-32.0); Mean Corpuscular Volume 92.2 fL (80-94); Mean Platelet Vol. 9.1 fl (6.2-12.0); Monocyte# 0.55 X10^3/uL; Monocyte% 8.6 % (0-10); NRBC Flagged by Analyzer 0 % (0-5); Neutrophil # 3.46 X10^3/uL (2.7-7.7); Neutrophil % 53.9 % (47-70); Platelet Count 300 K/mm3 (150-450); RBC Distribution Width CV 12.8 % (11.6-14.6); RBC Distribution Width SD 42.8 fl (35.1-43.9); White Blood Count 6.4 K/mm3 (4.4-11.0)
[2022-11-18 09:15] LABS: ALB/GLOB Ratio 0.3 RATIO (0.9-2.4); AST(SGOT) 207 U/L (15-37); Alanine Aminotransfer ALT/SGPT 94 U/L (16-61); Alkaline Phosphatase 987 U/L (45-117); Anion Gap 5 (5-15); BUN 22 mg/dL (7-18); BUN/Creat Ratio 21.8 RATIO (10-20); Calcium,Total 8.5 mg/dL (8.5-10.1); Chloride 103 mmol/L (98-107); Creatinine, Serum 1.01 mg/dL (0.70-1.30); EST Glomerular Filtration Rate 93 mL/min (>60); Est Glom Filt Rate - Afr Amer 112 mL/min (>60); Globulin 6.5 g/dL (2.2-4.2); Glucose 400 mg/dL (74-106); Magnesium 1.8 mg/dL (1.6-2.6); Potassium 4.8 mmol/L (3.5-5.1); Protein, Total 8.5 g/dL (6.4-8.2); Sodium Level 133 mmol/L (136-145)
== END | disposition home or self-care (01) ==
LOC: MEDOUTP 07:57
DX: E84.9 Cystic fibrosis, unspecified (principal); J18.9 Pneumonia, unspecified organism
CPT/HCPCS: 36592; 80053; 83735; 85025; A4216

== ENCOUNTER → 2022-11-26 | Outpatient (CLI) | payer MEDICAID, SELFPAY ==
[2022-11-26 08:31] LABS: Absolute Lymphocyte Count 1.31 X10^3/uL (0.83-4.51); Absolute Neutrophil Count 2.3 X10^3/uL (2.0-7.7); Basophil# 0.08 X10^3/uL; Basophil% 1.6 % (0-1); Eosinophil# 0.82 X10^3/uL; Eosinophils% 16.6 % (0-5); Hematocrit 30.8 % (40-54); Hemoglobin 10.2 g/dL (13.0-16.5); Lymphocyte # 1.31 X10^3/ul (0.83-4.51); Lymphocyte % 26.5 % (19-41); Mean Corp Hgb Conc 33.1 g/dL (32-36); Mean Corpuscular Hgb 30.2 pg (27.0-32.0); Mean Corpuscular Volume 91.1 fL (80-94); Mean Platelet Vol. 9.4 fl (6.2-12.0); Monocyte# 0.39 X10^3/uL; Monocyte% 7.9 % (0-10); NRBC Flagged by Analyzer 0 % (0-5); Neutrophil # 2.33 X10^3/uL (2.7-7.7); Neutrophil % 47.2 % (47-70); Platelet Count 196 K/mm3 (150-450); RBC Distribution Width CV 13.1 % (11.6-14.6); RBC Distribution Width SD 42.1 fl (35.1-43.9); Red Blood Count 3.38 M/mm3 (4.6-6.2); White Blood Count 4.9 K/mm3 (4.4-11.0)
[2022-11-26 09:09] LABS: ALB/GLOB Ratio 0.4 RATIO (0.9-2.4); AST(SGOT) 145 U/L (15-37); Alanine Aminotransfer ALT/SGPT 145 U/L (16-61); Albumin, Serum 2.3 g/dL (3.2-5.0); Alkaline Phosphatase 1147 U/L (45-117); Anion Gap 3 (5-15); BUN 15 mg/dL (7-18); BUN/Creat Ratio 12.9 RATIO (10-20); Calcium,Total 8.7 mg/dL (8.5-10.1); Chloride 101 mmol/L (98-107); Creatinine, Serum 1.16 mg/dL (0.70-1.30); EST Glomerular Filtration Rate 79 mL/min (>60); Est Glom Filt Rate - Afr Amer 96 mL/min (>60); Globulin 5.8 g/dL (2.2-4.2); Glucose 388 mg/dL (74-106); Magnesium 1.8 mg/dL (1.6-2.6); Potassium 4.4 mmol/L (3.5-5.1); Protein, Total 8.1 g/dL (6.4-8.2); Sodium Level 131 mmol/L (136-145)
[2022-11-26 16:28] LABS: Xtra Tube EP Lab EXTRA TUBE
== END | disposition home or self-care (01) ==
LOC: MEDOUTP 07:57
DX: E84.9 Cystic fibrosis, unspecified (principal); J18.9 Pneumonia, unspecified organism
CPT/HCPCS: 36592; 80053; 83735; 85025; A4216

== ENCOUNTER → 2022-12-05 | Outpatient (CLI) | payer MEDICAID, SELFPAY ==
--- NOTE | 2022-12-05 14:40 | NURSING ---
Double lumen PICC D/c'd from left upper arm. Patient tolerated well. remains intact 43cm. Pressure applied to site and dressing applied. Patient denies any needs at this time. Plan to observe for approximately 30min after being discontinued. Arabella
[2022-12-05 15:11] VITALS: BP 138/97; PULSE 92; RESP 14; TEMP 36.4; O2SAT 98
== END | disposition home or self-care (01) ==
LOC: MEDOUTP 14:24
DX: Z45.2 Encounter for adjustment and management of vascular access device (principal); E84.0 Cystic fibrosis with pulmonary manifestations; J18.9 Pneumonia, unspecified organism

== ENCOUNTER 2024-02-17 13:17 | Outpatient (CLI) | payer MEDICAID, SELFPAY ==
[2024-02-17 14:09] LABS: Absolute Neutrophil Count 2.5 X10^3/uL (2.0-7.7); Anion Gap 5 (5-15); BUN 31 mg/dL (7-18); BUN/Creat Ratio 24.6 RATIO (10-20); Basophil# 0.06 X10^3/uL; Basophil% 1.2 % (0-1); Calcium,Total 8.5 mg/dL (8.5-10.1); Chloride 103 mmol/L (98-107); Creatinine, Serum 1.26 mg/dL (0.70-1.30); EST Glomerular Filtration Rate 71 mL/min (>60); Eosinophil# 0.32 X10^3/uL; Eosinophils% 6.5 % (0-5); Est Glom Filt Rate - Afr Amer 86 mL/min (>60); Glucose 150 mg/dL (74-106); Hematocrit 25.7 % (40-54); Hemoglobin 8.3 g/dL (13.0-16.5); Lymphocyte % 26.3 % (19-41); Mean Corp Hgb Conc 32.3 g/dL (32-36); Mean Corpuscular Hgb 30.6 pg (27.0-32.0); Mean Corpuscular Volume 94.8 fL (80-94); Monocyte# 0.73 X10^3/uL; Monocyte% 14.8 % (0-10); NRBC Flagged by Analyzer 0 % (0-5); Neutrophil # 2.52 X10^3/uL (2.7-7.7); Platelet Count 179 K/mm3 (150-450); Potassium 4.3 mmol/L (3.5-5.1); RBC Distribution Width SD 55.3 fl (35.1-43.9); Red Blood Count 2.71 M/mm3 (4.6-6.2); Sodium Level 137 mmol/L (136-145); White Blood Count 4.9 K/mm3 (4.4-11.0)
[2024-02-17 14:41] LABS: Vancomycin, Random Level 33.5 ug/mL (0.0-15.0)
== END 2024-02-17 13:18 | disposition home or self-care (01) ==
LOC: MEDOUTP 13:18
DX: E84.0 Cystic fibrosis with pulmonary manifestations (principal)
CPT/HCPCS: 36592; 80048; 80202; 85025; A4216

== ENCOUNTER 2024-02-24 12:54 | Outpatient (CLI) | payer MEDICAID, SELFPAY ==
[2024-02-24 13:30] LABS: Absolute Lymphocyte Count 1.13 X10^3/uL (0.83-4.51); Absolute Neutrophil Count 1.8 X10^3/uL (2.0-7.7); Basophil# 0.05 X10^3/uL; Basophil% 1.2 % (0-1); Eosinophil# 0.49 X10^3/uL; Eosinophils% 12.1 % (0-5); Hematocrit 23.1 % (40-54); Hemoglobin 7.5 g/dL (13.0-16.5); Lymphocyte # 1.13 X10^3/ul (0.83-4.51); Mean Corp Hgb Conc 32.5 g/dL (32-36); Mean Corpuscular Hgb 30.5 pg (27.0-32.0); Mean Corpuscular Volume 93.9 fL (80-94); Mean Platelet Vol. 9.7 fl (6.2-12.0); Monocyte# 0.53 X10^3/uL; Monocyte% 13.1 % (0-10); NRBC Flagged by Analyzer 0 % (0-5); Neutrophil # 1.83 X10^3/uL (2.7-7.7); Neutrophil % 45.4 % (47-70); Platelet Count 225 K/mm3 (150-450); RBC Distribution Width SD 48.2 fl (35.1-43.9); Red Blood Count 2.46 M/mm3 (4.6-6.2)
[2024-02-24 13:42] LABS: Vancomycin, Trough Level 18.1 ug/mL (5.0-15.0)
[2024-02-24 13:46] LABS: AST(SGOT) 163 U/L (15-37); Alanine Aminotransfer ALT/SGPT 96 U/L (16-61); Albumin, Serum 1.9 g/dL (3.2-5.0); Alkaline Phosphatase 915 U/L (45-117); Anion Gap 4 (5-15); BUN 40 mg/dL (7-18); Calcium,Total 8.3 mg/dL (8.5-10.1); Chloride 102 mmol/L (98-107); EST Glomerular Filtration Rate 54 mL/min (>60); Est Glom Filt Rate - Afr Amer 65 mL/min (>60); Globulin 6.3 g/dL (2.2-4.2); Glucose 354 mg/dL (74-106); Potassium 4.9 mmol/L (3.5-5.1); Protein, Total 8.2 g/dL (6.4-8.2); Sodium Level 133 mmol/L (136-145)
== END 2024-02-24 12:55 | disposition home or self-care (01) ==
LOC: MEDOUTP 12:54
DX: Z45.2 Encounter for adjustment and management of vascular access device (principal); E84.0 Cystic fibrosis with pulmonary manifestations
CPT/HCPCS: 36592; 80048; 80076; 80202; 85025; A4216

== ENCOUNTER 2024-08-31 13:43 | Observation (INO) | payer MEDICAID, SELFPAY ==
[2024-08-31] VITALS (24 sets, daily range): BP systolic 161–209; BP diastolic 99–120; PULSE 70–93; RESP 14–35; TEMP 36.3–37.2; O2SAT 93–97; BMI 16.5; BMI 19.3
--- NOTE | 2024-08-31 13:47 | EKG12_ITS ---
Test Reason : MED CHANGE/REPEAT Blood Pressure : / mmHG Vent. Rate : 082 BPM Atrial Rate : 082 BPM P-R Int : 172 ms QRS Dur : 086 ms QT Int : 364 ms P-R-T Axes : 070 080 075 degrees QTc Int : 425 ms Normal sinus rhythm Normal ECG Confirmed by CORDELL RUEDA, STEVEN ([id number]), manager editorial BE FARAH ([id number]) on 09/02/2024 1:19:50 PM Referred By: Confirmed By:STEVEN LANDA MD
--- NOTE | 2024-08-31 14:04 | EDS_ITS ---
HPI History of Present Illness Chief Complaint: Abn Labs Narrative Narrative: Patient is a 29-year-old male with past medical history of type 1 diabetes, pancreatic insufficiency, cystic fibrosis, asthma who presented to the emergency department with a chief complaint of elevated potassium levels. Patient states that he was having his potassium checked as his potassium has been running high the past few times after his IV antibiotic treatments. He states that he currently is on vancomycin and meropenem for a cystic fibrosis flare. He states that on of this week will be 2 weeks of the IV antibiotics. Patient states that he follows with the [facility] for his cystic fibrosis. Patient notes that he has been a little bit more tired than normal today but denies any other symptoms. [facility] Medical History (Updated 08/31/24 @ 19:[address] Brady Bal, DO) Cystic fibrosis Home Medications ?Medication ?Instructions ?Recorded ?Last Taken ?Type elexacaftor 100 mg-tezacaf 2 ea PO DAILY CF 11/14/19 07/04/20 History 50mg-ivacaf 75mg(d)/ivacaf 150mg(n) tablets [id number]-[id number] 2 - 3 cap PO TIDCM 11/14/19 Unknown History 36,000-114,000-180,000 unit capsule,delay rel insulin glargine 100 unit/mL (3 8 unit SQ QHS DM 07/04/20 Unknown History mL) subcutaneous pen insulin lispro 100 unit/mL See Protocol SQ TIDCM 07/04/20 08/31/24 History subcutaneous pen tobramycin with nebulizer 300 mg/5 300 mg IH BID SOB 07/04/20 Unknown History mL solution for nebulization Nicotine [Nicotine Patch] 21 mg TRANSDERM. DAILY ##14 07/07/20 Unknown Rx albuterol sulfate 90 mcg/actuation 2 puff inhalation Q4H PRN PRN 08/31/24 Unknown History aerosol inhaler (Ventolin HFA) wheezing blood sugar diagnostic (OneTouch 08/31/24 Unknown History Verio test strips) blood-glucose sensor (Dexcom G7 08/31/24 Unknown History Sensor device) carvedilol 25 mg tablet 25 mg PO BID 08/31/24 Unknown History diphenhydramine HCl 50 mg/mL 50 mg IV Q12H vancomycin 08/31/24 08/31/24 History injection solution sensitivity dornase christi 1 mg/mL solution for 2.5 mg inhalation DAILY 08/31/24 Unknown History inhalation (Pulmozyme) ipratropium 0.5 mg-albuterol 3 mg 3 ml inhalation Q4H PRN PRN 08/31/24 Unknown History (2.5 mg base)/3 mL nebulization wheezing soln meropenem 1 gram intravenous 1 g IV Q12H 08/31/24 Unknown History solution pantoprazole 40 mg tablet,delayed 40 mg PO BID 08/31/24 Unknown History release polyethylene glycol 3350 17 17 g PO DAILY PRN constipation 08/31/24 Unknown History gram/dose oral powder sodium chloride 0.9 % 1 ea IV Q12H PRN flush after abx 08/31/24 Unknown History vancomycin 500 mg intravenous 300 mg PO Q12H 08/31/24 08/31/24 History solution Allergy/AdvReac Type Severity Reaction Status Date / Time No Known Allergies Allergy Verified 08/31/24 13:44 Social History Smoking Status: Former smoker ROS ROS ED ROS Narrative Constitutional: Denies any fevers, chills, headaches, lightness, dizziness Eyes: Denies double vision blurry vision changes vision Cardiovascular: Denies chest pain or palpitations Respiratory: Denies coughing wheezing shortness of breath Abdomen: Denies abdominal pain nausea vomit diarrhea : Denies any painful urination, hematuria and polyuria Neurological: Denies numbness, weakness and tingling Musculoskeletal: Denies back pain Skin: Denies rashes or lesions EXAM Physical Exam Narrative Exam Narrative: General: Patient lying in bed rest comfortably did not appear to be in acute distress Head: Atraumatic, normocephalic Eyes: PERRL bilaterally, EOMI bilateral, no conjunctival injection noted Neck: Soft, supple, trach midline Cardiovascular: Regular rate and rhythm no murmurs gallops rubs noted Respiratory: Patient has minimal end expiratory squeak noted bilaterally Abdomen: Soft nondistended, nontender to palpation, bowel sounds present x 4 Extremities: +5/5 strength noted in bilateral upper and lower extremities, no pedal edema no exam, radial pulses +2/4 in the bilateral upper extremities Neurological: Patient was following commands knew that he was at [facility] year is 2023 Skin: Warm, dry, intact Const Vital Signs: 08/31/24 13:44 08/31/24 14:05 08/31/24 14:15 Temperature 98.9 F Temperature Source Oral Pulse Rate 84 84 Respiratory Rate 18 18 Respiratory Effort Normal Non-Labored Respiratory Pattern Normal Blood Pressure 187/106 H 183/114 H Blood Pressure Mean 133 137 Pulse Ox 94 95 Oxygen Delivery Method Room Air Room Air 08/31/24 14:15 08/31/24 15:30 08/31/24 15:45 Temperature Temperature Source Pulse Rate 74 87 Respiratory Rate 19 H 14 Respiratory Effort Respiratory Pattern Blood Pressure 176/115 H 177/99 H Blood Pressure Mean 135 122 Pulse Ox 94 94 Oxygen Delivery Method 08/31/24 16:00 08/31/24 16:18 08/31/24 16:24 Temperature Temperature Source Pulse Rate 85 86 84 Respiratory Rate 23 H 35 H 17 Respiratory Effort Respiratory Pattern Blood Pressure 188/108 H 195/110 H Blood Pressure Mean 131 137 Pulse Ox 93 95 Oxygen Delivery Method 08/31/24 16:26 08/31/24 16:30 08/31/24 16:45 Temperature Temperature Source Pulse Rate 81 87 91 Respiratory Rate 19 H 22 H 21 H Respiratory Effort Respiratory Pattern Blood Pressure 195/110 H 209/115 H Blood Pressure Mean 138 141 Pulse Ox 97 94 95 Oxygen Delivery Method Room Air 08/31/24 17:00 08/31/24 17:00 08/31/24 17:15 Temperature Temperature Source Pulse Rate 81 90 91 Respiratory Rate 19 H 23 H Respiratory Effort Respiratory Pattern Blood Pressure 180/120 H 172/109 H Blood Pressure Mean 140 128 Pulse Ox 95 95 Oxygen Delivery Method 08/31/24 17:30 08/31/24 17:45 08/31/24 18:00 Temperature Temperature Source Pulse Rate 86 84 80 Respiratory Rate 20 H 22 H 24 H Respiratory Effort Respiratory Pattern Blood Pressure 180/120 H 176/101 H Blood Pressure Mean 133 121 Pulse Ox 94 93 Oxygen Delivery Method 08/31/24 18:15 08/31/24 18:30 08/31/24 18:45 Temperature Temperature Source Pulse Rate 78 75 78 Respiratory Rate 19 H 22 H 20 H Respiratory Effort Respiratory Pattern Blood Pressure 200/111 H Blood Pressure Mean 137 Pulse Ox Oxygen Delivery Method 08/31/24 19:00 Temperature Temperature Source Pulse Rate 93 Respiratory Rate 30 H Respiratory Effort Respiratory Pattern Blood Pressure Blood Pressure Mean Pulse Ox Oxygen Delivery Method MDM MDM MDM Narrative Medical decision making narrative: Patient is a 29-year-old male who presented to the emergency department chief complaint of hyperkalemia. Patient will have his potassium rechecked here in the emergency department and then be reevaluated. Patient will give IV fluids. Patient's CBC reviewed and showed no evidence leukocytosis white blood count normal 6.6, hemoglobin was 9.1, platelet count normal at 326. Patient sodium was noted 139, potassium was noted be elevated to 5.7 indicating hyperkalemia, creatinine normal at 1.03. Patient's sodium was noted to be 151 calcium was noted be 7.9. Patient AST and ALT were 1529 he has chronic elevation of his liver enzymes secondary to his cystic fibrosis, alk phos is chronically elevated as well to 819. Patient's random Vanco level was noted to be 18.8. Patient's EKG reviewed and showed peaked T waves noted in leads V1 through V4 this was compared to his previous EKG which was not there previously. He was given hyperkalemia treatment in which was calcium gluconate, insulin dextrose. On reevaluation of the patient he did become hypoglycemic he was given an amp of D50 and was given food to eat. Patient's BMP was rechecked and his sodium was noted be 134, he remained hyperkalemic at 5.4 EKG was repeated and he still had persistent peaked T waves noted in the leads V2 through V4. At this point time do believe the patient will warrant admission for his hyperkalemia and his EKG changes did discuss case with hospitalist who came down and evaluated the patient at bedside and who will accept patient for admission Dr. Cook. Patient was notified with all question concerns answered. Lab Data Labs: Laboratory Results - last 24 hr 08/31/24 08/31/24 08/31/24 14:00 14:40 16:32 WBC 6.6 RBC 3.09 L Hgb 9.1 L Hct 28.7 L MCV 92.9 MCH 29.4 MCHC 31.7 L RDW Std Deviation 62.3 H RDW Coeff of Erika 18.3 H Plt Count 226 MPV 9.2 Immature Gran % (Auto) 0.300 Neut % (Auto) 59.8 Lymph % (Auto) 21.9 [place] % (Auto) 9.4 Eos % (Auto) 7.1 H Baso % (Auto) 1.5 H Absolute Neuts (auto) 4.0 Absolute Lymphs (auto) 1.45 Nucleated RBC % 0 Sodium 139 Potassium 5.7 H Chloride 115 H Carbon Dioxide 24.0 Anion Gap 0 L BUN 13 Creatinine 1.03 Estim Creat Clear Calc 60.27 Est GFR (MDRD) Af Amer 108 Est GFR (MDRD) Non-Af 90 BUN/Creatinine Ratio 12.6 Glucose 151 H Calcium 7.9 L Total Bilirubin 0.30 Direct Bilirubin 0.17 AST 50 H ALT 29 Alkaline Phosphatase 819 H Total Protein 7.0 Albumin 1.5 L Globulin 5.5 H Albumin/Globulin Ratio 0.3 L Random Vancomycin 18.8 H POC Glucose 25 L* 08/31/24 08/31/24 16:57 17:03 WBC RBC Hgb Hct MCV MCH MCHC RDW Std Deviation RDW Coeff of Erika Plt Count MPV Immature Gran % (Auto) Neut % (Auto) Lymph % (Auto) [place] % (Auto) Eos % (Auto) Baso % (Auto) Absolute Neuts (auto) Absolute Lymphs (auto) Nucleated RBC % Sodium 134 L Potassium 5.4 H Chloride 113 H Carbon Dioxide 20.0 L Anion Gap 1 L BUN 12 Creatinine 0.95 Estim Creat Clear Calc 65.34 Est GFR (MDRD) Af Amer 119 Est GFR (MDRD) Non-Af 98 BUN/Creatinine Ratio 12.6 Glucose 269 H Calcium 8.7 Total Bilirubin Direct Bilirubin AST ALT Alkaline Phosphatase Total Protein Albumin Globulin Albumin/Globulin Ratio Random Vancomycin POC Glucose 176 H Discharge Plan Triage Chief Complaint: Abn Labs ED Provider: Brady Bal Dx/Rx/DC Orders Clinical Impression: Acute hyperkalemia, Acute electrocardiogram changes Prescriptions: No Action [id number] 1 EACH capsule,delayed release(DR/EC) 2 - 3 cap PO TIDCM Rx Instructions: TAKE 3 CAPS WITH MEALS AND 2 CAPS WITH SNACKS [id number]-aucerpqhpw-[id number] 1 EACH tablets, sequential 2 ea PO DAILY Patient Comments: PT STATES ONLY TAKES THE 2 MORNING TABS AND SKIPS THE EVENING DOSE. tobramycin with nebulizer 300 MG/5 ML solution for nebulization 300 mg IH BID insulin lispro 100 UNIT/ML insulin pen See Protocol SQ TIDCM Protocol: 2. Sliding Scale Insulin Low-Med Dosing Condition: 150-209 mg/dl = 1 unit Condition: 210-269 mg/dl = 2 units Condition: 270-329 mg/dl = 3 units Condition: 330-389 mg/dl = 4 units Condition: 390-449 mg/dl = 5 units Condition: Greater than 449 call physician Protocol Text: - Use for Total Daily Dose of Insulin 28-36 units - Average size patients LOW MEDIUM DOSING ALGORITHM Patient Comments: carb scale per pt insulin glargine 100 UNIT/ML insulin pen 8 unit SQ QHS Nicotine [Nicotine Patch] 1 EACH Patch.Td24 21 mg TRANSDERM. DAILY Qty: 14 0RF carvedilol 25 mg tablet 25 mg PO BID (DME) OneTouch Verio test strips Strip 1 strip MISCELLANEOUS TID diphenhydramine HCl 50 mg/mL solution 50 mg IV Q12H Patient Comments: Red romel syndrome albuterol sulfate [Ventolin HFA] 90 mcg/actuation HFA aerosol inhaler 2 puff INHALATION Q4H PRN PRN (Reason: wheezing) (DME) Dexcom G7 Sensor Device MISCELLANEOUS Patient Comments: [NO ORIGINAL SIG] Pulmozyme 1 mg/mL solution 2.5 mg inhalation DAILY ipratropium-albuterol 0.5 mg-3 mg(2.5 mg base)/3 mL solution for nebulization 3 ml inhalation Q4H PRN PRN (Reason: wheezing) meropenem 1 gram recon soln 1 g IV Q12H pantoprazole 40 mg tablet,delayed release (DR/EC) 40 mg PO BID sodium chloride 0.9 % Parenteral Solution 1 ea IV Q12H PRN polyethylene glycol 3350 17 gram/dose powder 17 g PO DAILY PRN (Reason: constipation) vancomycin 500 mg recon soln 300 mg PO Q12H Patient Comments: per pt bottle, 300mg q12 hours Primary Care Provider: Care Physician,No Primary Referrals: Lenora Sutton DO [Non-Staff] - Print Language: Pashto
[2024-08-31] MEDS: 0.9% Normal Saline (1000mL) 1,000 ML 999 ML IV (14:05)
[2024-08-31 14:12] LABS: Absolute Lymphocyte Count 1.45 X10^3/uL (0.83-4.51); Basophil% 1.5 % (0-1); Eosinophil# 0.47 X10^3/uL; Eosinophils% 7.1 % (0-5); Hematocrit 28.7 % (40-54); Hemoglobin 9.1 g/dL (13.0-16.5); Lymphocyte # 1.45 X10^3/ul (0.83-4.51); Lymphocyte % 21.9 % (19-41); Mean Corp Hgb Conc 31.7 g/dL (32-36); Mean Corpuscular Hgb 29.4 pg (27.0-32.0); Mean Corpuscular Volume 92.9 fL (80-94); Mean Platelet Vol. 9.2 fl (6.2-12.0); Monocyte# 0.62 X10^3/uL; Monocyte% 9.4 % (0-10); NRBC Flagged by Analyzer 0 % (0-5); Neutrophil # 3.97 X10^3/uL (2.7-7.7); Neutrophil % 59.8 % (47-70); Platelet Count 226 K/mm3 (150-450); RBC Distribution Width CV 18.3 % (11.6-14.6); RBC Distribution Width SD 62.3 fl (35.1-43.9); Red Blood Count 3.09 M/mm3 (4.6-6.2); White Blood Count 6.6 K/mm3 (4.4-11.0)
[2024-08-31 14:32] LABS: ALB/GLOB Ratio 0.3 RATIO (0.9-2.4); AST(SGOT) 50 U/L (15-37); Alanine Aminotransfer ALT/SGPT 29 U/L (16-61); Albumin, Serum 1.5 g/dL (3.2-5.0); Alkaline Phosphatase 819 U/L (45-117); Anion Gap 0 (5-15); BUN 13 mg/dL (7-18); BUN/Creat Ratio 12.6 RATIO (10-20); Bilirubin, Direct 0.17 mg/dL (0.00-0.30); Calcium,Total 7.9 mg/dL (8.5-10.1); Chloride 115 mmol/L (98-107); Creatinine, Serum 1.03 mg/dL (0.70-1.30); EST Glomerular Filtration Rate 90 mL/min (>60); Est Glom Filt Rate - Afr Amer 108 mL/min (>60); Estimated Creatinine Clearance 60.27 ml/min; Globulin 5.5 g/dL (2.2-4.2); Glucose 151 mg/dL (74-106); Potassium 5.7 mmol/L (3.5-5.1); Sodium Level 139 mmol/L (136-145)
[2024-08-31 15:10] LABS: Vancomycin, Random Level 18.8 ug/mL (0.0-15.0)
[2024-08-31] MEDS: Calcium Gluconate IV 3 GM in Syringe 1 EACH IV (15:12)
[2024-08-31] MEDS: Dextrose 10%-Water 250 ML 999 ML IV ×2 (15:12→16:41)
[2024-08-31] MEDS: Insulin Lispro 10 UNIT in Syringe 0 ML 6 UNIT IV (15:25)
--- NOTE | 2024-08-31 16:18 | NURSING ---
CALLED ESME BEAR, [facility], SHE WAS PAGED BY THEIR OFFICE
[2024-08-31 16:49] LABS: Bedside Glucose 25 mg/dL (74-106)
[2024-08-31 17:15] LABS: Bedside Glucose 176 mg/dL (74-106)
[2024-08-31 17:20] LABS: Anion Gap 1 (5-15); BUN 12 mg/dL (7-18); BUN/Creat Ratio 12.6 RATIO (10-20); Calcium,Total 8.7 mg/dL (8.5-10.1); Chloride 113 mmol/L (98-107); Creatinine, Serum 0.95 mg/dL (0.70-1.30); EST Glomerular Filtration Rate 98 mL/min (>60); Est Glom Filt Rate - Afr Amer 119 mL/min (>60); Estimated Creatinine Clearance 65.34 ml/min; Glucose 269 mg/dL (74-106); Potassium 5.4 mmol/L (3.5-5.1); Sodium Level 134 mmol/L (136-145)
--- NOTE | 2024-08-31 17:23 | EKG12_ITS ---
Test Reason : AM EKG Blood Pressure : / mmHG Vent. Rate : 117 BPM Atrial Rate : 117 BPM P-R Int : 144 ms QRS Dur : 078 ms QT Int : 326 ms P-R-T Axes : 076 089 079 degrees QTc Int : 454 ms Sinus tachycardia Otherwise normal ECG When compared with ECG of 31-AUG-2024 17:31, MANUAL COMPARISON REQUIRED, DATA IS UNCONFIRMED Confirmed by CORDELL RUEDA, STEVEN ([id number]), editorial intern BE FARAH ([id number]) on 09/02/2024 1:13:35 PM Referred By: Confirmed By:STEVEN LANDA MD
[2024-08-31] MEDS: Metoprolol Tartrate 25 MG Tablet 12.5 MG PO (19:01)
[2024-08-31] MEDS: Labetalol (Prefilled) 20 MG/4 ML IV (19:21)
--- NOTE | 2024-08-31 19:47 | PCM.HP.STD ---
HPI - General General Date of Admission: 08/31/24 Date of Service: 08/31/24 Chief Complaint: Hyperkalemia HPI Narrative VERENICE SAENZ, is a 29 M who presented to [facility] ED on 08/31/2024 for hyperkalemia. Patient has history of cystic fibrosis, follows with [facility] for this. Is currently on IV vancomycin and meropenem at home through PICC line for pulmonary infection. Has completed about 2 weeks of antibiotics and states he typically completes 3 to 4 weeks of antibiotics total with episodes like this. He had his potassium level checked earlier today because his potassium level has been elevated in the past with IV antibiotic treatments. His potassium level was noted to be 5.7 so he was sent to the ED for further evaluation. Repeat potassium here was 5.7 as well. EKG did show peaked T waves throughout, otherwise no other hyperkalemia changes noted. Patient was treated with insulin and dextrose and a bolus of IV fluids with potassium recheck of 5.4. However, repeat EKG continued to show peaked T waves so hospitalist was contacted for admission. I saw the patient at bedside in the ED, mother was present. Patient was very pleasant. Was sitting up comfortably in bed, conversing normally, in no acute distress. Did have an occasional wet cough noted. Otherwise stated that his pulmonary infection has improved on antibiotics and he denies any other acute pain or discomfort. Patient was noted to have elevated blood pressures at that time and was given a dose of IV labetalol for this. I gave him doses of IV Lasix, sodium polystyrene and a DuoNeb treatment and patient will be admitted for further management. [facility] Medical History (Updated 08/31/24 @ 19:[address] Brady Bal, DO) Cystic fibrosis Home Medications ?Medication ?Instructions ?Recorded ?Last Taken ?Type elexacaftor 100 mg-tezacaf 2 ea PO DAILY CF 11/14/19 07/04/20 History 50mg-ivacaf 75mg(d)/ivacaf 150mg(n) tablets geqzbq-hqucylew-xqvdvsr 2 - 3 cap PO TIDCM 11/14/19 Unknown History 36,000-114,000-180,000 unit capsule,delay rel insulin glargine 100 unit/mL (3 8 unit SQ QHS DM 07/04/20 Unknown History mL) subcutaneous pen insulin lispro 100 unit/mL See Protocol SQ TIDCM 07/04/20 08/31/24 History subcutaneous pen tobramycin with nebulizer 300 mg/5 300 mg IH BID SOB 07/04/20 Unknown History mL solution for nebulization albuterol sulfate 90 mcg/actuation 2 puff inhalation Q4H PRN PRN 08/31/24 Unknown History aerosol inhaler (Ventolin HFA) wheezing blood sugar diagnostic (OneTouch 08/31/24 Unknown History Verio test strips) blood-glucose sensor (Dexcom G7 08/31/24 Unknown History Sensor device) carvedilol 25 mg tablet 25 mg PO BID 08/31/24 Unknown History diphenhydramine HCl 50 mg/mL 50 mg IV Q12H vancomycin 08/31/24 08/31/24 History injection solution sensitivity dornase christi 1 mg/mL solution for 2.5 mg inhalation DAILY 08/31/24 Unknown History inhalation (Pulmozyme) ipratropium 0.5 mg-albuterol 3 mg 3 ml inhalation Q4H PRN PRN 08/31/24 Unknown History (2.5 mg base)/3 mL nebulization wheezing soln meropenem 1 gram intravenous 1 g IV Q12H 08/31/24 Unknown History solution pantoprazole 40 mg tablet,delayed 40 mg PO BID 08/31/24 Unknown History release polyethylene glycol 3350 17 17 g PO DAILY PRN constipation 08/31/24 Unknown History gram/dose oral powder sodium chloride 0.9 % 1 ea IV Q12H PRN flush after abx 08/31/24 Unknown History vancomycin 500 mg intravenous 300 mg PO Q12H 08/31/24 08/31/24 History solution Allergy/AdvReac Type Severity Reaction Status Date / Time cefoxitin AdvReac Intermediate Upset Verified 08/31/24 21:01 Stomach Social History Smoking Status: Former smoker ROS Constitutional Constitutional: Denies chills, fatigue, fever(s) or weakness Eyes Eyes: Denies change in vision Cardiovascular Cardiovascular: Denies chest pain Respiratory/Chest Respiratory/Chest: Reports cough and productive cough; Denies shortness of breath at rest, shortness of breath with exertion or wheezing Gastrointestinal Gastrointestinal: Denies abdominal pain, constipation, diarrhea, nausea or vomiting Genitourinary Genitourinary: Denies dysuria Vital Signs Vital Signs Vital Signs: 08/31/24 13:44 08/31/24 14:05 08/31/24 14:15 Temperature 98.9 F Temperature Source Oral Pulse Rate 84 84 Respiratory Rate 18 18 Respiratory Effort Normal Non-Labored Respiratory Pattern Normal Blood Pressure 187/106 H 183/114 H Blood Pressure Mean 133 137 Pulse Ox 94 95 Oxygen Delivery Method Room Air Room Air 08/31/24 14:15 08/31/24 15:30 08/31/24 15:45 Temperature Temperature Source Pulse Rate 74 87 Respiratory Rate 19 H 14 Respiratory Effort Respiratory Pattern Blood Pressure 176/115 H 177/99 H Blood Pressure Mean 135 122 Pulse Ox 94 94 Oxygen Delivery Method 08/31/24 16:00 08/31/24 16:18 08/31/24 16:24 Temperature Temperature Source Pulse Rate 85 86 84 Respiratory Rate 23 H 35 H 17 Respiratory Effort Respiratory Pattern Blood Pressure 188/108 H 195/110 H Blood Pressure Mean 131 137 Pulse Ox 93 95 Oxygen Delivery Method 08/31/24 16:26 08/31/24 16:30 08/31/24 16:45 Temperature Temperature Source Pulse Rate 81 87 91 Respiratory Rate 19 H 22 H 21 H Respiratory Effort Respiratory Pattern Blood Pressure 195/110 H 209/115 H Blood Pressure Mean 138 141 Pulse Ox 97 94 95 Oxygen Delivery Method Room Air 08/31/24 17:00 08/31/24 17:00 08/31/24 17:15 Temperature Temperature Source Pulse Rate 81 90 91 Respiratory Rate 19 H 23 H Respiratory Effort Respiratory Pattern Blood Pressure 180/120 H 172/109 H Blood Pressure Mean 140 128 Pulse Ox 95 95 Oxygen Delivery Method 08/31/24 17:30 08/31/24 17:45 08/31/24 18:00 Temperature Temperature Source Pulse Rate 86 84 80 Respiratory Rate 20 H 22 H 24 H Respiratory Effort Respiratory Pattern Blood Pressure 180/120 H 176/101 H Blood Pressure Mean 133 121 Pulse Ox 94 93 Oxygen Delivery Method 08/31/24 18:15 08/31/24 18:30 08/31/24 18:45 Temperature Temperature Source Pulse Rate 78 75 78 Respiratory Rate 19 H 22 H 20 H Respiratory Effort Respiratory Pattern Blood Pressure 200/111 H Blood Pressure Mean 137 Pulse Ox Oxygen Delivery Method 08/31/24 19:00 Temperature Temperature Source Pulse Rate 93 Respiratory Rate 30 H Respiratory Effort Respiratory Pattern Blood Pressure Blood Pressure Mean Pulse Ox Oxygen Delivery Method Weight Weight: 41.005 kg Body Mass Index (BMI) 16.5 Physical Exam Const alert, oriented x3 and no apparent distress Constitutional Narrative: Pleasant younger male, thin appearing, mildly fatigued appearing, otherwise sitting up comfortably in bed, conversing normally, in no acute distress. General Appearance: cooperative and comfortable HEENT normocephalic, head/scalp atraumatic, hearing grossly normal bilaterally, nasal mucous membranes and turbinates normal and moist oral mucous membranes Eyes PERRL, EOMs intact bilaterally and conjunctivae normal Neck full ROM Chest inspection of chest normal Resp normal respiratory effort and no use of accessory muscles Resp Narrative: Breathing comfortably on room air at rest. Mild crackles with congestion noted in upper airways bilaterally but otherwise good air movement noted throughout. No wheezing noted. Cardio regular rate, regular rhythm, no murmurs and peripheral pulses 2+ throughout GI normal to inspection, nondistended, normoactive bowel sounds, soft to palpation, non-tender and non-distended Back/Spine normal ROM Extremity normal to inspection, full ROM and no pedal edema Skin no rashes or lesions noted Neuro moves all extremities and no focal motor deficits Speech: speech normal Psych mental status grossly normal Results Lab / Micro Data 08/31/24 14:00 08/31/24 17:03 Labs: Laboratory Results - last 24 hr 08/31/24 14:00: WBC 6.6, RBC 3.09 L, Hgb 9.1 L, Hct 28.7 L, MCV 92.9, MCH 29.4, MCHC 31.7 L, RDW Std Deviation 62.3 H, RDW Coeff of Erika 18.3 H, Plt Count 226, MPV 9.2, Immature Gran % (Auto) 0.300, Neut % (Auto) 59.8, Lymph % (Auto) 21.9, [place] % (Auto) 9.4, Eos % (Auto) 7.1 H, Baso % (Auto) 1.5 H, Absolute Neuts (auto) 4.0, Absolute Lymphs (auto) 1.45, Nucleated RBC % 0, Sodium 139, Potassium 5.7 H, Chloride 115 H, Carbon Dioxide 24.0, Anion Gap 0 L, BUN 13, Creatinine 1.03, Estim Creat Clear Calc 60.27, Est GFR (MDRD) Af Amer 108, Est GFR (MDRD) Non-Af 90, BUN/Creatinine Ratio 12.6, Glucose 151 H, Calcium 7.9 L, Total Bilirubin 0.30, Direct Bilirubin 0.17, AST 50 H, ALT 29, Alkaline Phosphatase 819 H, Total Protein 7.0, Albumin 1.5 L, Globulin 5.5 H, Albumin/Globulin Ratio 0.3 L 08/31/24 14:40: Random Vancomycin 18.8 H 08/31/24 16:32: POC Glucose 25 L* 08/31/24 16:57: POC Glucose 176 H 08/31/24 17:03: Sodium 134 L, Potassium 5.4 H, Chloride 113 H, Carbon Dioxide 20.0 L, Anion Gap 1 L, BUN 12, Creatinine 0.95, Estim Creat Clear Calc 65.34, Est GFR (MDRD) Af Amer 119, Est GFR (MDRD) Non-Af 98, BUN/Creatinine Ratio 12.6, Glucose 269 H, Calcium 8.7 Assessment & Plan Assessment/Plan (1) Acute hyperkalemia: (2) Acute electrocardiogram changes: (3) Cystic fibrosis: PLAN: Plan Patient is a 29-year-old male who presented [facility] ED on 08/31/2024 with hyperkalemia. 1. Hyperkalemia ? Admit under observation status to PCU. Suspect due to recent antibiotic use, specifically meropenem. Potassium 5.7 in the ED but did have peaked T waves. Treated with insulin/dextrose and IV fluid bolus with improvement to 5.4 but continued to have peaked T waves. Given doses of IV Lasix, sodium polysterene and a DuoNeb treatment in the ED after the K of 5.4 result. Will give another 1 L of normal saline overnight. Repeat BMP and EKG ordered for tomorrow morning. If improved, patient should be okay for discharge home. 2. Recent recurrent pneumonia episode in setting of cystic fibrosis ? Follows with [facility] for this. Recently diagnosed with recurrent pneumonia, has been on IV vancomycin and meropenem for about 2 weeks. Has PICC line in place for this. Plan is for 3 to 4-week course of antibiotics total. Continue vancomycin and meropenem while here and on discharge. 3. Type 1 diabetes mellitus with hyperglycemia ? Blood glucose 261 on admit. Home regimen of insulin glargine 8 units at night with sliding scale insulin with meals as needed. Will continue home regimen here, can adjust as needed. 4. Hypertension ? Hypertensive to 190s to 200s in the ED. Given dose of IV labetalol with some improvement. Also given dose of IV Lasix as noted above. Continue home Coreg. IV hydralazine as needed ordered as well. 5. Pancreatic insufficiency ? Continue home pancreatic enzyme replacement. 6. Tobacco abuse ? Nicotine patch ordered per patient request. Encouraged cessation on discharge. 7. GERD ? Continue home PPI. DVT prophylaxis: Low risk, ambulate CODE STATUS: Full code, verified Expected disposition: Home, 1 to 2 days Total clinical time spent by myself addressing the patient's medical issues, reviewing all the data, and collaborating with patient's care team: 55 minutes. Charges/Coding Visit Charges Inpatient E&M: 04876 Init Hosp L2
[2024-08-31] MEDS: Ipratropium/Albuterol Sulfate 3 ML AMPUL.NEB INHALATION ×2 (19:52→21:00)
[2024-08-31] MEDS: Furosemide 20 MG/2 ML VIAL IV (20:08)
[2024-08-31] MEDS: Sodium Polystyrene Sulfonate 15 GM/60 ML UDC PO (20:08)
--- OUTSIDE RECORDS SUMMARY | 2024-08-31 20:12 | XMS RPT_ITS | CCD ---
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 Name Role Phone STEPHIE RAMIREZ Unavailable Unavailable IMCA Unavailable Unavailable DARRIAN, STEPHIE J Unavailable Unavailable IMCA Unavailable Unavailable DARRIAN, STEPHIE J Unavailable Unavailable DARRIAN, STEPHIE J Unavailable Unavailable DARRIAN, STEPHIE J Unavailable Unavailable DARRIAN, STEPHIE J Unavailable Unavailable DARRIAN, STEPHIE J Unavailable Unavailable IMCA Unavailable Unavailable DARRIAN, STEPHIE J Unavailable Unavailable DARRIAN, STEPHIE J Unavailable Unavailable Darrian CASING INSPECTOR.Stephie BIANCHI Unavailable Jean Pierre Kilgore MD Unavailable No palm and back forger, Md Primary Care Provider Zeynep vailable Allan MAYFIELD, Orquidea Rasmussen Unavailable [phone] Mike EDWARD/LD, Orquidea Unavailable Garry CASING INSPECTOR-Amadou BIANCHI Unavailable Merlin RN, Maryam Patton Unavailable Unavailable Luis Eduardo LEGGETT, Whitley Jones Unavailable Unavailable PHYSICIAN, NONE Primary Care Physician Unavailab le PROVIDER, UNKNOWN Attending Unavailable PROVIDER, UNKNOWN Admitting Unavailable Darrian CASING INSPECTOR.Stephie BIANCHI Unavailable Darrian CASING INSPECTOR.Stephie BIANCHI Unavailable NO PRIMARY CARE, Primary Care Unavailable CURTIS CISNEROS Attending Unavailable CURTIS CISNEROS Admitting Unavailable Jean Pierre Kilgore MD Unavailable Abelino EDWARD, Be Unavailable SHE PETE Referring Unavailable JEAN PIERRE KILGORE Referring Unavailabl e STEPHIE RAMIREZ Attending Unavaila STEPHIE Green Attending Unavaila STEPHIE Green Attending Unavaila ble SHEERS, JEAN PIERRE NATHALIE Referring Unavailabl e BUCUR, SALLY Referring Unavailable TALIERCIOPAMELA Admitting Unavailable BUCUR, SALLY Referring Unavailable ASHLEYSISSY Attending Unavaila ble BUCUR, SALLY Referring Unavailable BUCUR, SALLY Referring Unavailable TUROWSKI, ALEX Referring Unavailable TUROWSKI, ALEX Referring Unavailable ABELINOBE Attending Unavailable BENNINGER, SHE Referring Unavailable BENNINGERBHAVIKYN Attending Unavailable BENNINGER, SHE Referring Unavailable SHEERS, JEAN PIERRE NATHALIE Attending Unavailabl e SHEERS, JEAN PIERRE NATHALIE Referring Unavailabl e SHEERS, JEAN PIERRE NATHALIE Referring Unavailabl e BUCUR, SALLY Referring Unavailable BUCUR, SALLY Referring Unavailable AMANDA, MAYTE Referring Unavailable JAMESMARKOS Attending Unavailable BUCUR, SALLY Referring Unavailable JUNNATIA Attending Unavailable FERNANDO ZHANG Attending Unavailable BENNINGER, SHE Referring Unavailable SHEERS, JEAN PIERRE NATHALIE Attending Unavailabl e TUROWSKI, ALEX Referring Unavailable LAIQUE MONO Marium Referring Unavailable BUCUR, SALLY Referring Unavailable SHEERS, JEAN PIERRE NATHALIE Referring Unavailabl e BENNINGER, SHE Referring Unavailable SHEERS, JEAN PIERRE NATHALIE Referring Unavailabl e JUNNA, TIA Attending Unavailable SHEERS, JEAN PIERRE NATHALIE Attending Unavailabl e SHEERS, JEAN PIERRE NATHALIE Referring Unavailabl e TALIERCIO, PAMELA Rasmussen Admitting Unavailable BUCUR, SALLY Referring Unavailable ASHLEYSISSY Attending Unavaila ble BUCUR, SALLY Referring Unavailable BENNINGER, SHE Referring Unavailable MIELNIKFERNANDO Attending Unavailable BENNINGER, SHE Referring Unavailable MARY JO, AMADOU Referring Unavailable SHEERS, JEAN PIERRE NATHALIE Attending Unavailabl e TUROWSKI, ALEX Referring Unavailable TUROWSKI, ALEX Referring Unavailable SHEERS, JEAN PIERRE NATHALIE Referring Unavailabl e Allergies Allergy Classification Reported Allergen(s) Allergy Type Date of Onset Reaction(s) Facility Cephalosporins (antibiotic) (4 sources) cefOXitin Drug Allergy 6 Rash, Other: See Comments [facility] Glycopeptides (antibiotic) (4 sources) Vancomycin Drug Allergy 3 Itching, Rash [facility] linezolid (4 sources) linezolid Drug Allergy 3 Rash, GI Upset [facility] Work Phone: (20 sources) cefOXitin; Translations: [CEFOXITIN] Drug Allergy 6 Rash, Other (See Comments), Other: See Comments [facility] Repository (20 sources) Vancomycin; Translations: [VANCOMYCIN] Drug Allergy 3 Itching, Rash [facility] (20 sources) linezolid; Translations: [LINEZOLID] Drug Allergy 3 Rash, GI Upset [facility] Work Phone: Medications Current Medications Medication Drug Class(es) Dates Sig (Normalized) Sig (Original) [id number] 200 actuat albuterol 0.09 mg/actuat metered dose inhaler (20 sources) beta2-Adrenergic Agonist Start: 07-30-2023 take 2 puff(s) by mouth every four hours for wheezing albuterol HFA (VENTOLIN HFA) 90 mcg/actuation inhaler inhale 2 puffs by mouth as directed every 4 hours if needed for wheezing or shortness of breath 54 g 11 07/30/2023 Active Start: 07-23-2022 End: 07-30-2023 take 2 puff(s) by inhalation every four hours as needed for wheezing albuterol HFA (PROAIR HFA) 90 mcg/actuation inhaler Inhale 2 Puffs as instructed every 4 hours as needed for wheezing/shortness of breath. 3 Inhaler 3 07/23/2022 07/30/2023 Discontinued Start: 05-12-2022 End: 05-14-2022 albuterol (PROAIR HFA;VENTOL IN HFA;PROVENTIL HFA) 108 (90 Base) MCG/ACT inhaler 2 Puff Start: 01-14-2022 take 2 puff(s) by mo uth four times daily albuterol 108 (90 Base) MCG/ACT inhaler inhale 2 puffs by mouth four times a day 1 Each 11 01/14/2022 Active Start: 05-28-2016 End: 07-23-2022 PROAIR HFA 90 mcg/actuation inhaler Comment on above: Inhale 2 Puffs as in structed every 4 hours as needed for wheezing/shortness of breath. 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 360 mL 11 09/24/2023 Active Start: 06-18-2018 End: 03-10-2023 take 3 mL by inhalation every twelve hours as needed ipratropium-albuterol (DUONEB) 0.5 mg-3 mg(2.5 mg base)/3 mL nebu Inhale 3 mL as instructed twice daily as needed. 0 06/18/2018 03/10/2023 Discontinued Comment on above: Inhale 3 mL as instr ucted twice daily. Inhale 3 mL as instr ucted twice daily as needed. Inhale 3 mL as instr ucted every 4 hours as needed for wheezing/shortness of breath. 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 3 with snacks 1350 capsule 5 09/24/2023 Active Start: 01-14-2022 End: 01-14-2023 CREON [id number] units cap cyndy Take 3 Capsules (108,000 Units) by mouth Before Meals and 2 Snacks 450 Capsule 11 01/14/2022 01/14/2023 Active Start: 05-28-2016 End: 09-24-2023 take 3 capsules by mouth once at mealtime CREON 36,000-114,000- 180,000 unit capsule Take 3 capsules by mouth. With every meal 0 05/28/2016 09/24/2023 Discontinued Start: 05-28-2016 End: 05-14-2022 CREON 36,000-114,000- 180,00 0 unit capsule Comment on above: Take 3 capsules by m outh. With every meal Take 3 capsules by m outh three times a day with meals. 3 with snacks aztreonam 75 mg/ml inhalation solution (20 sources) Monobactam Antibacterial Start: 08-01-20 End: 11-27-20 take 1 mL by inhalation three times daily aztreonam lysine (CAYSTON) 75 mg/mL nebulizer solution Indications: Cystic fibrosis with pulmonary manifestations (HCC) Inhale 1 mL as instructed three times daily. 28 days on 28 days off Send altera nebulizer with each shipment 84 mL 6 11/27/2022 Active Comment on above: Inhale 1 mL as instr ucted three times daily. 28 days on 28 days off Send altera nebulizer with each shipment Blood-Glucose Meter monitoring kit (20 sources) Start: 08-11-20 Blood-Glucose Meter monitoring kit Indications: Type 1 diabetes mellitus with hyperglycemia (HCC) For monitoring sugars 3x/day 1 Each 08/11/2023 Suspended Start: 08-11-2023 Blood-Glucose Meter monitoring kit Indications: Type 1 diabetes mellitus with hyperglycemia (HCC) For monitoring sugars 3x/day 1 Each 08/11/2023 Active Comment on above: For monitoring sugar s 3x/day Blood-Glucose Meter,Continuous (DEXCOM G7 CODER OPERATOR) misc (20 sources) Start: 02-27-2023 Blood-Glucose Meter,Continuous (DEXCOM G7 CODER OPERATOR) misc Indications: Type 1 diabetes mellitus with hyperglycemia (HCC) For monitoring sugars 1 Each 02/27/2023 Suspended Start: 02-27-2023 Blood-Glucose Meter,Continuous (DEXCOM G7 CODER OPERATOR) misc Indications: Type 1 diabetes mellitus with hyperglycemia (HCC) For monitoring sugars 1 Each 1 02/27/2023 Active Comment on above: For monitoring sugar s Blood-Glucose Sensor (DEXCOM G7 SENSOR) jean-paul (20 sources) Start: 03-01-2024 Blood-Glucose Sensor (DEXCOM G7 SENSOR) jean-paul Indications: Type 1 diabetes mellitus with hyperglycemia (HCC) use as directed and REPLACE every 10 days 3 Each 03/01/2024 Active Start: 02-27-2023 End: 03-01-2024 Blood-Glucose Sensor (DEXCOM G7 SENSOR) jean-paul Indications: Type 1 diabetes mellitus with hyperglycemia (HCC) One sensor every 10 days 3 Each 11 02/27/2023 03/01/2024 Discontinued Start: 02-27-2023 Blood-Glucose Sensor (DEXCOM G7 SENSOR) jean-paul Indications: Type 1 diabetes mellitus with hyperglycemia (HCC) One sensor every 10 days 3 Each 02/27/2023 Suspended Start: 02-27-2023 Blood-Glucose Sensor (DEXCOM G7 SENSOR) jean-paul Indications: Type 1 diabetes mellitus with hyperglycemia (HCC) One sensor every 10 days 3 Each 02/27/2023 Active Comment on above: One sensor every 10 days use as directed and REPLACE every 10 days carvedilol 25 mg oral tablet (20 sources) alpha-Adrenergic Ericka, beta-Adrenergic Ericka Start: 02-16-2024 End: 03-17-2024 take 1 tablet by mouth twice daily at mealtime carvedilol (COREG) 25 mg tablet Take 1 tablet by mouth two times a day with meals. 30 tablet 11 03/17/2024 Active Start: 10-06-2022 End: 02-16-2024 take 1 tablet by mouth twice daily at mealtime carvedilol (COREG) 6.25 mg tablet take 1 tablet by mouth twice a day with meals 60 tablet 10/24/2023 02/16/2024 Discontinued Start: 08-01-2022 End: 08-31-2022 take 1 tablet by mouth twice daily at mealtime carvedilol (COREG) 6.25 mg tablet Take 1 tablet by mouth twice daily with meals. 60 tablet 1 08/01/2022 Active Comment on above: Take 1 tablet by nils th twice daily with meals. take 1 tablet by nils th twice a day with meals Take 1 tablet by nils th two times a day with meals. cetirizine hydrochloride 10 mg oral tablet (20 sources) Histamine-1 Receptor Antagonist Start: 2 End: 2 take 1 tablet by mouth once daily cetirizine (ZYRTEC) 10 mg tablet Take 1 tablet by mouth once daily. 30 tablet 5 2022 10/15/2022 Active Start: 05-28-2018 End: 05-14-2022 take 1 tablet by mouth once daily as needed 10 mg (0.266 mg/kg/DOSE), Oral, DAILY PRN, Starting on 05/12/22 at 1624, Until 05/14/22 at 1711, Allergies OP SIG:Take 1 Tab (10 mg) by mouth daily as needed for Allergies take 2 tablets by mo [facility] once daily cetirizine (ZYRTEC) 5 mg tablet Take 10 mg by mouth once daily. Active Comment on above: Take 1 tablet by nils once daily. Take 10 mg by mouth once daily. cholecalciferol 1.25 mg oral capsule (20 sources) Vitamin D Start: 2023 take 1 capsule by mouth two times weekly cholecalciferol, Vitamin D3, (VITAMIN D3) 1,250 mcg (50,000 unit) cap capsule Indications: Cystic fibrosis (HCC) , 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) Take 1 capsule by mouth two times a week. 8 capsule 3 12/04/2023 Active Comment on above: Take 1 capsule by [facility] two times a week. 1 ml diphenhydrAMINE hydrochloride 50 mg/ml injection (20 sources) Histamine-1 Receptor Antagonist Start: 2023 End: 2023 inject 50 mg intravenously every twelve hours diphenhydrAMINE (BENADRYL) 50 mg/mL injection Inject 50 mg intravenously every 12 hours for 14 days. 30 minutes before IV Vaqncomycin 28 mL 08/19/2024 09/02/2024 Active Start: 03-10-2023 End: 03-24-2023 inject 25 mg intravenously twice daily diphenhydrAMINE (BENADRYL) 50 mg/mL injection Inject 25 mg intravenously twice daily for 14 days. 14 mL 0 03/10/2023 03/24/2023 Start: 11-11-2022 End: 12-11-2022 inject 50 mg intravenously every twelve hours diphenhydrAMINE (BENADRYL) 50 mg/mL injection Inject 50 mg intravenously every 12 hours for 15 days. Prior to IV vancomycin dosing 30 mL 0 11/11/2022 11/25/2022 Discontinued Comment on above: Inject 50 mg intrave nously every 12 hours for 15 days. Prior to IV vancomycin dosing Inject 25 mg intrave nously twice daily for 14 days. 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 225 mL 3 09/24/2023 09/23/2024 Active Start: 05-12-2022 End: 05-14-2022 2.5 mg (0.0665 mg/kg/DAY), N ebulization, DAILY, 90 doses, First dose on Fri05/12/22 at 1630, Last dose on Fri08/09/22 at 0900 Start: 07-03-2020 dornase alpha (PULMOZYME) 1 MG/ML nebulizer solution Use 2.5 mL (2.5 mg) by nebulization daily 225 mL 3 07/03/2020 Active Comment on above: Inhale 2.5 mL as ins tructed once daily. 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) , Cystic fibrosis with pulmonary manifestations (HCC) , Pseudomonas aeruginosa infection , Burkholderia cepacia infection , 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) , Vitamin D deficiency , Elevated liver enzymes level due to cystic fibrosis (HCC) (HCC) Alternate between 2(starting 07/30) and 1 tablet every morning , hold evening dose 84 Each 09/24/2023 Suspended Start: 09-24-2023 elexacaftor 10 0 mg-tezacaftor 50 mg-ivacaftor 75 mg(d)/ivacaftor 150 mg(n) tablets (TRIKAFTA) Indications: 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) , Cystic fibrosis with pulmonary manifestations (HCC) , Pseudomonas aeruginosa infection , Burkholderia cepacia infection , 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) , Vitamin D deficiency , Elevated liver enzymes level due to cystic fibrosis (HCC) (HCC) Alternate between 2(starting 07/30) and 1 tablet every morning , hold evening dose 84 Each 09/24/2023 Active Start: 09-24-2023 elexacaftor 10 0 mg-tezacaftor 50 mg-ivacaftor 75 mg(d)/ivacaftor 150 mg(n) tablets (TRIKAFTA) Indications: 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) , Cystic fibrosis with pulmonary manifestations (HCC) , Pseudomonas aeruginosa infection , Burkholderia cepacia infection , 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) , Vitamin D deficiency , Elevated liver enzymes level due to cystic fibrosis (HCC) Alternate between 2(starting 07/30) and 1 tablet every morning , hold evening dose 84 Each 09/24/2023 Active Start: 07-29-2023 End: 09-24-2023 elexacaftor 100 mg-tezacafto r 50 mg-ivacaftor 75 mg(d)/ivacaftor 150 mg(n) tablets (TRIKAFTA) Alternate between 2(starting 07/30) and 1 tablet every morning , hold evening dose 84 Each 0 07/29/2023 09/24/2023 Discontinued Start: 07-29-2023 elexacaftor 10 0 mg-tezacaftor 50 mg-ivacaftor 75 mg(d)/ivacaftor 150 mg(n) tablets (TRIKAFTA) Alternate between 2(starting 07/30) and 1 tablet every morning , hold evening dose 84 Each 0 07/29/2023 Active Start: 07-25-2023 elexacaftor 10 0 mg-tezacaftor 50 mg-ivacaftor 75 mg(d)/ivacaftor 150 mg(n) tablets (TRIKAFTA) Alternate between 2(starting 07/24) and 1 tablet every morning , hold evening dose 84 Each 0 07/25/2023 Active Start: 07-24-2023 elexacaftor 10 0 mg-tezacaftor 50 mg-ivacaftor 75 mg(d)/ivacaftor 150 mg(n) tablets (TRIKAFTA) Take 2 combination tablets in the morning and take 1 Ivacaftor tablet in the evening. DO NOT crush, chew, or open. 84 Each 0 07/24/2023 Active Comment on above: Alternate between 2( starting 07/24) and 1 tablet every morning , hold evening dose Take 2 combination t ablets in the morning and take 1 Ivacaftor tablet in the evening. DO NOT crush, chew, or open. Alternate between 2( starting 07/30) and 1 tablet every morning , hold evening dose ergocalciferol 1.25 mg oral capsule (20 sources) Provitamin D2 Compound Start: 07-18-20 22 End: 07-30-20 23 take 1 capsule by mouth two times weekly VITAMIN D2 1,250 mcg (50,000 unit) capsule Indications: 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) , Vitamin D deficiency Take 1 capsule by mouth two times a week. 24 capsule 3 07/30/2023 Active Start: 2022 End: 10-15-2022 take 1 capsule by mouth every week VITAMIN D2 1,250 mcg (50,000 unit) capsule Take 1 capsule by mouth one time a week. 12 capsule 11 2022 07/18/2022 Discontinued Start: 05-13-2022 End: 2022 VITAMIN D2 1,250 mcg (50,000 unit) capsule Start: 02-25-2022 vitamin D (ERG OCALCIFEROL) 1.25 MG (24929 UT) capsule Take 1 Capsule (50,000 Units) by mouth every 7 days Indications: Osteoporosis 12 Capsule 3 02/25/2022 Active Comment on above: Take 1 capsule by mo uth one time a week. Take 1 capsule by mo uth two times a week. glucagon 3 mg nasal powder (20 sources) Antihypoglycemic Agent Start: 12-20-2022 glucagon (BAQSIMI) 3 mg/actuation nasal spray Indications: Type 1 diabetes mellitus with hyperglycemia (HCC) Use 1 Calvin in the nose as needed. May repeat after 15 minutes using a new device if there is no response for severe low blood sugar event 2 Each 3 12/20/2022 Active Start: 08-28-2021 End: 12-20-2022 glucagon (GLUCAGON EMERGENCY KIT, HUMAN,) 1 mg injection Indications: Type 1 diabetes mellitus with hyperglycemia (HCC) use as directed if needed for SIGNIFICANT LOW BLOOD SUGAR EVENT 1 Each 3 08/28/2021 12/20/2022 Discontinued Comment on above: use as directed if n eeded for SIGNIFICANT LOW BLOOD SUGAR EVENT Use 1 Calvin in the n ose as needed. May repeat after 15 minutes using a new device if there is no response for severe low blood sugar event Glucagon, rDNA, (GLUCAGON EMERGENCY IJ) (1 source) Glucagon, rDNA, (GLUCAGON EMERGENCY IJ) Inject 1 mg into the muscle Use as instructed. 0 Active HANDICAP PLACARD (1 source) Start: 07-01-2016 HANDICAP PLACARD Permanent Placard, for the purpose of a disability. 1 Each 0 07/01/2016 Active insulin detemir 100 unt/ml injectable solution (20 sources) Insulin Analog Start: 05-14-2022 insulin detemir (LEVEMIR) 100 UNIT/ML SOLN injection Inject 8 Units into the skin nightly at bedtime bedtime Indications: CFRD 1 Each 0 05/14/2022 Active Start: 05-12-2022 End: 05-14-2022 8 Units (0.213 Units/kg/DAY) , Subcutaneous, BEDTIME, 90 doses, First dose on Fri05/12/22 at 2100, Last dose on Fri08/09/22 at 2100 OP SIG:Inject 13 Units into the skin nightly at bedtime bedtime Indications: CFRDPatient taking differently: Inject 8 Units into the skin nightly at bedtime bedtime Indications: CFRD Start: 03-17-2019 End: 05-14-2022 insulin detemir (LEVEMIR) 10 0 UNIT/ML SOLN injection Inject 13 Units into the skin nightly at bedtime bedtime Indications: CFRD 3 Vial 3 03/17/2019 05/14/2022 Discontinued (Reorder) Start: 07-02-2018 End: 09-06-2022 insulin detemir U-100 (LEVEM IR) 100 unit/mL injection Inject 8 Units subcutaneously. 0 07/02/2018 09/06/2022 Discontinued End: 12-20-2022 inject 8 [IU] by subcutaneous injection once daily at bedtime insulin detemir (LEVEMIR FLEXPEN SUBCUTANEOUS) Inject 8 Units subcutaneously daily at bedtime. 0 12/20/2022 Discontinued inject 8 [IU] by sub cutaneous injection once daily at bedtime insulin detemir (LEVEMIR FLEXPEN SUBCUTANEOUS) Inject 8 Units subcutaneously daily at bedtime. 0 Active inject 8 [IU] by sub cutaneous injection once daily at bedtime insulin detemir (LEVEMIR FLEXPEN SUBCUTANEOUS) Inject 8 Units subcutaneously daily at bedtime. 0 Suspended Comment on above: Inject 8 Units subcu taneously. Inject 8 Units subcu taneously daily at bedtime. 3 ml insulin glargine 100 unt/ml pen injector (20 sources) Insulin Analog Start: 03-09-2024 insulin glargine (LANTUS SOLOSTAR U-100 INSULIN) 100 unit/mL (3 mL) Indications: Type 1 diabetes mellitus with hyperglycemia (HCC) inject 11 units subcutaneously at bedtime 15 mL 3 03/09/2024 Active Start: 09-29-2023 End: 03-09-2024 inject 8 [IU] by subcutaneous injection at bedtime insulin glargine (LANTUS SOLOSTAR U-100 INSULIN) 100 unit/mL (3 mL) Indications: Type 1 diabetes mellitus with hyperglycemia (HCC) inject 8 units subcutaneously at bedtime 15 mL 3 09/29/2023 03/09/2024 Discontinued Start: 12-20-2022 End: 09-29-2023 inject 8 [IU] by subcutaneous injection at bedtime insulin glargine (LANTUS SOLOSTAR U-100 INSULIN) 100 unit/mL (3 mL) Indications: Type 1 diabetes mellitus with hyperglycemia (HCC) inject 8 units subcutaneously at bedtime 15 mL 3 09/29/2023 Active Start: 09-10-2021 End: 09-06-2022 inject 8 [IU] by subcutaneous injection at bedtime insulin glargine (BASAGLAR KWIKPEN U-100 INSULIN) 100 unit/mL (3 mL) Indications: Type 1 diabetes mellitus with hyperglycemia (HCC) Inject 8 units subcutaneously at bedtime 2 Each 3 09/06/2022 Active Comment on above: Inject 8 units subcu taneously at bedtime inject 11 units subc utaneously at bedtime 3 ml insulin lispro 100 unt/ml pen injector (20 sources) Insulin Analog Start: 2020 End: 2023 insulin lispro (HUMALOG KWIKPEN INSULIN) 100 unit/mL Indications: Type 1 diabetes mellitus with hyperglycemia (HCC) Dose varies units with meals and sliding scale, using about 30 total units a day 15 mL 11 03/09/2024 Active Comment on above: Dose varies units wi th meals and sliding scale, using about 40 total units a day Dose varies units wi th meals and sliding scale, using about 30 total units a day iv contrast (will be provided with radiology test) (2 sources) Start: 2023 End: 2023 iv contrast (will be provided with radiology test) MRI PANC/MARYAM Inject, intravenously, once for 1 dose. No IV access, insert saline lock prior to the beginning of sedation, infusion, injection of imaging exam. Discontinue saline lock post exam. If Pt. has a central line or IVAD, may access for administration according to line specific nursing protocol. Once exam is complete flush line and de-access according to line specific nursing protocol in the MR contrast administration guidelines link. 1 Each 0 02/16/2024 02/17/2024 Active Comment on above: MRI PANC/MARYAM Inject, intravenously, once for 1 dose. No IV access, insert saline lock prior to the beginning of sedation, infusion, injection of imaging exam. Discontinue saline lock post exam. If Pt. has a central line or IVAD, may access for administration according to line specific nursing protocol. Once exam is complete flush line and de-access according to line specific nursing protocol in the MR contrast administration guidelines link. 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 28 g 08/19/2024 09/02/2024 Active Start: 08-18-2024 End: 08-18-2024 inject 1 g intravenously every eight hours meropenem (MERREM) 1 gram injection Indications: Cystic fibrosis with pulmonary exacerbation (HCC) Inject 1 g intravenously every 8 hours for 14 days. 42 g 08/18/2024 08/18/2024 Discontinued (Dosage adjustment) minocycline 100 mg oral capsule (12 sources) Tetracycline-class Drug Start: 11-12-2023 End: 12-03-2023 take 1 capsule by mouth twice daily minocycline (MINOCIN, DYNACIN) 100 mg capsule Indications: Cystic fibrosis with pulmonary manifestations (HCC) , Pseudomonas aeruginosa infection , Burkholderia cepacia infection Take 1 capsule by mouth two times a day for 21 days. 42 capsule 0 11/12/2023 12/03/2023 Active Start: 10-17-2023 End: 11-07-2023 take 1 capsule by mouth twice daily minocycline (MINOCIN, DYNACIN) 100 mg capsule Indications: Cystic fibrosis with pulmonary manifestations (HCC) , Pseudomonas aeruginosa infection , Burkholderia cepacia infection Take 1 capsule by mouth two times a day for 21 days. 42 capsule 0 10/17/2023 11/07/2023 Active Start: 11-27-2022 End: 12-11-2022 take 1 capsule by mouth twice daily minocycline (MINOCIN, DYNACIN) 100 mg capsule Take 1 capsule by mouth twice daily for 14 days. 28 capsule 0 11/27/2022 12/11/2022 Active Comment on above: Take 1 capsule by mo uth twice daily for 14 days. Take 1 capsule by mo uth two times a day for 21 days. Misc. Devices (ACAPELLA) MISC (1 source) Misc. 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 90 tablet 5 09/11/2022 Active Comment on above: Take 1 tablet by nils th daily at bedtime. MVW COMPLETE FORMULATION (MVW COMPLETE FORMULATION) CAPS (1 source) Start: 07-09-20 21 take 2 capsules by mouth once daily MVW COMPLETE FORMULATION (MVW COMPLETE FORMULATION) CAPS Take 2 Capsules by mouth daily 60 Capsule 11 07/09/2021 Active Nebulizers (20 sources) Start: 11-27-20 Nebulizers Indications: Cystic fibrosis with pulmonary manifestations (HCC) , Pseudomonas aeruginosa infection , Burkholderia cepacia infection 1 Each three times daily. 1 Each 11/27/2022 Suspended Start: 11-27-2022 Nebulizers Ind ications: Cystic fibrosis with pulmonary manifestations (HCC) , Pseudomonas aeruginosa infection , Burkholderia cepacia infection 1 Each three times daily. 1 Each 11/27/2022 Active Start: 08-01-2022 Nebulizers 1 E ach three times daily. 1 Each 08/01/2022 Active Start: 08-01-2022 End: 11-27-2022 Nebulizers 1 Each three time s daily. 1 Each 08/01/2022 11/27/2022 Discontinued Start: 08-01-2022 Nebulizers 1 E ach three times daily. 1 Each 6 08/01/2022 Suspended Start: 08-01-2022 Nebulizers 1 E ach three times daily. 1 Each 0 08/01/2022 Suspended Start: 08-01-2022 Nebulizers 1 E ach three times daily. 1 Each 6 08/01/2022 Active Start: 08-01-2022 Nebulizers 1 E ach three times daily. 1 Each 0 08/01/2022 Active Comment on above: 1 Each three times d aily. nirmatrelvir tablet 300 mg (150 mg x 2) and ritonavir tablet 100 mg in a dose pack (PAXLOVID) (3 sources) Start: 08-26-20 End: 08-31-20 nirmatrelvir tablet 300 mg (150 mg x 2) and ritonavir tablet 100 mg in a dose pack (PAXLOVID) Indications: Cystic fibrosis with pulmonary manifestations (HCC) Administer TWO pink nirmatrelvir 150 mg tablets and ONE white ritonavir 100 mg tablet for a total of three tablets twice daily. 30 tablet 0 08/26/2022 08/31/2022 Active Comment on above: Administer TWO pink nirmatrelvir 150 mg tablets and ONE white ritonavir 100 mg tablet for a total of three tablets twice daily. NONFORMULARY (1 source) Start: 06-25-20 13 NONFORMULARY Novolog Meals: 1 units of Rapid Acting Insulin for 10 grams of Carbohydrate Snacks: 1 unit of Rapid Acting Insulin for 15 grams of Carbohydrate Correction Factor: BS > 150 add 1 unit BS > 190 add 2 units BS > 230 add 3 units BS > 270 add 4 units BS > 310 add 5 units 1 Each 0 06/25/2013 Active oseltamivir 75 mg oral capsule (2 sources) Neuraminidase Inhibitor Start: 11-05-20 End: 11-10-20 take 1 capsule by mouth twice daily oseltamivir (TAMIFLU) 75 mg capsule Indications: Cystic fibrosis with pulmonary manifestations (HCC) Take 1 capsule by mouth twice daily for 5 days. 10 capsule 1 11/05/2022 11/10/2022 Suspended Comment on above: Take 1 capsule by [facility] twice daily for 5 days. perflutren lipid microspheres 1.3 mL in NaCl (PF) 0.9% 10 mL injection (DEFINITY) (20 sources) Start: 07-21-20 End: 10-20-20 perflutren lipid microspheres 1.3 mL in NaCl (PF) 0.9% 10 mL injection (DEFINITY) Respiratory Therapy Supplies (BOB ALTERA NEBULIZER HANDSET) MISC (1 source) Start: 08-11-20 Respiratory Therapy Supplies (BOB ALTERA NEBULIZER HANDSET) MISC 1 Each by Does not apply route 3 times daily To be used to nebulize [place] 1 Each 5 08/11/2019 Active 1000 ml sodium chloride 9 mg/ml injection (20 sources) Start: 08-25-20 End: 09-01-20 0.9 % sodium chloride (NACL 0.9%) 0.9% solp Inject 1,000 mL intravenously daily at bedtime for 7 days. 7000 mL 08/25/2024 09/01/2024 Active Start: 11-27-2022 End: 12-07-2022 0.9 % sodium chloride (NACL 0.9%) iv infusion Indications: Cystic fibrosis with pulmonary manifestations (HCC) , Cystic fibrosis exacerbation (HCC) , Acute kidney injury (HCC) , Transaminitis Inject 125 mL intravenously daily at bedtime for 10 days. 96860 mL 0 11/27/2022 12/07/2022 Active Start: 11-18-2022 End: 11-22-2022 0.9 % sodium chloride (NACL 0.9%) infusion Inject 125 mL/hr intravenously daily at bedtime for 4 days. 4000 mL 0 11/18/2022 11/22/2022 Start: 07-21-2022 End: 10-20-2023 sodium chloride 0.9 % (flush ) 10 mL (BD POSIFLUSH) Start: 05-12-2022 End: 05-14-2022 30 mL PRN (0.798 ml/kg/DOSE) , Intravenous, at 0-999 mL/hr, Flush IV line after medication IVPB bag if given., Starting on Fri05/12/22 at 1624, For 90 days Flush IV line after medication IVPB bag if given. Start: 05-12-2022 End: 05-14-2022 10 mL PRN (0.266 ml/kg/DOSE) , Intravenous, at 0-999 mL/hr, Line Care, For mixture of medications, Starting on Fri05/12/22 at 1624, For 90 days For mixture of medications Start: 05-12-2022 End: 05-14-2022 2 mL EVERY 8 HOURS (0.16 mL/ kg/DAY), Intravenous, at 0-999 mL/hr, First dose on Fri05/12/22 at 1630, For 90 days Start: 05-12-2022 End: 05-14-2022 NaCl 0.9% IV Start: 05-12-2022 End: 05-12-2022 NaCl 0.9% IV Start: 05-12-2022 End: 05-14-2022 NaCl 0.9% PosiFlush 10 mL Comment on above: Inject 125 mL/hr int ravenously daily at bedtime for 4 days. Inject 125 mL intrav enously daily at bedtime for 10 days. sodium polystyrene sulfonate 250 mg/ml oral suspension (3 sources) Start: 08-27-2024 End: 08-27-2024 sodium polystyrene sulfonate, with sorbitol, (SPS) 15-20 gram/60 mL susp suspension Indications: Hyperkalemia Take 120 mL by mouth one time only for 1 dose. 120 mL 08/27/2024 08/27/2024 Active Start: 08-21-2023 End: 08-21-2023 sodium polystyrene sulfonate , with sorbitol, (SPS) 15-20 gram/60 mL susp suspension Take 60 mL by mouth one time only for 1 dose. 60 mL 0 08/21/2023 08/21/2023 Comment on above: Take 60 mL by mouth one time only for 1 dose. Spacer/Aero-Holding Chambers (Santeen ProductsBER DINO) JEAN-PAUL DEVICE (1 source) Start: 05-25-20 Spacer/Aero-Hold ing Chambers (Pycno) JEAN-PAUL DEVICE by Other route Use as directed with metered-dose inhaler. 1 Each 0 05/25/2018 Active sulfamethoxazole 800 mg / trimethoprim 160 mg oral tablet (20 sources) Dihydrofolate Reductase Inhibitor Antibacterial, Sulfonamide Antimicrobial Start: 08-11-20 End: 08-25-20 take 1 tablet by mouth twice daily sulfamethoxazole -trimethoprim (BACTRIM DS) 800-160 mg per tablet Take 1 tablet by mouth two times a day for 14 days. 28 tablet 08/11/2024 08/25/2024 Active Start: 02-26-2023 End: 03-12-2023 take 1 tablet by mouth twice daily sulfamethoxazole-trimethoprim (BACTRIM D S) 800-160 mg per tablet Take 1 tablet by mouth twice daily for 14 days. 28 tablet 0 02/26/2023 03/10/2023 Discontinued Start: 10-23-2022 End: 11-13-2022 take 2 tablets by mouth twice daily sulfamethoxazole-trimethoprim (BACTRIM D S) 800-160 mg per tablet Take 2 tablets by mouth twice daily for 21 days. 84 tablet 0 10/23/2022 11/05/2022 Discontinued Start: 08-26-2022 End: 09-09-2022 take 2 tablets by mouth twice daily sulfamethoxazole-trimethoprim (BACTRIM D S) 800-160 mg per tablet Take 2 tablets by mouth twice daily for 14 days. 56 tablet 0 08/26/2022 09/09/2022 Active Start: 07-25-2022 End: 08-15-2022 take 1 tablet by mouth twice daily sulfamethoxazole-trimethoprim (BACTRIM D S) 800-160 mg per tablet Indications: Cystic fibrosis with pulmonary manifestations (HCC) , Hemoptysis , Pseudomonas aeruginosa infection , Burkholderia cepacia infection Take 1 tablet by mouth twice daily for 21 days. 42 tablet 0 07/25/2022 08/15/2022 Suspended Comment on above: Take 1 tablet by nils twice daily for 21 days. Take 2 tablets by mo [facility] twice daily for 14 days. Take 2 tablets by mo [facility] twice daily for 21 days. Take 1 tablet by nils twice daily for 14 days. tobramycin 60 mg/ml inhalation solution (1 source) Aminoglycoside Antibacterial Start: 07-03-20 20 tobramycin (MUKESH) 300 MG/5ML nebulizer solution Use 5 mL (300 mg) by nebulization every 12 hours Use every other month. 56 Ampule 6 07/03/2020 Active tranexamic acid 650 mg oral tablet (20 sources) Antifibrinolytic Agent Start: 10-17-20 End: 08-16-20 24 take 2 tablets by mouth three times daily tranexamic acid (LYSTEDA) 650 mg tablet Indications: Cystic fibrosis with pulmonary manifestations (HCC) , Pseudomonas aeruginosa infection , Burkholderia cepacia infection Take 2 tablets by mouth three times a day for 5 days. 30 tablet 08/11/2024 Active Start: 07-25-2022 End: 11-11-2022 take 2 tablets by mouth three times daily tranexamic acid (LYSTEDA) 650 mg tablet Indications: Cystic fibrosis with pulmonary manifestations (HCC) , Hemoptysis , Pseudomonas aeruginosa infection , Burkholderia cepacia infection Take 2 tablets by mouth three times daily for 5 days. 30 tablet 0 07/25/2022 11/11/2022 Discontinued Comment on above: Take 2 tablets by mo uth three times daily for 5 days. Take 2 tablets by mo uth three times a day for 5 days. ursodiol 300 mg oral capsule (20 sources) Bile Acid Start: 018 End: take 1 capsule by mouth twice daily ursodiol (ACTIGALL) 300 mg capsule take 1 capsule by mouth twice a day 30 capsule 2 07/13/2024 Active Comment on above: TAKE 1 CAP (300 MG) BY MOUTH 2 TIMES DAILY Take 300 mg by mouth twice daily. 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 28 Each 08/19/2024 09/02/2024 Active vitamin k2 0.04 mg oral tablet (20 sources) Start: End: take 1 tablet by mouth once daily vitamin K2 40 mcg tab Take 1 tablet by mouth once daily. 30 tablet 3 2022 10/15/2022 Active End: 2022 vitamin K2 40 mcg tab Take b y mouth. 0 2022 Discontinued Comment on above: Take 1 tablet by nils once daily. Take by mouth. Completed/Discontinued Medications Medication Drug Class(es) Dates Sig (Normalized) Sig (Original) acetaminophen 325 mg oral tablet (1 source) Start: 05-13-2022 End: 05-14-2022 acetaminophen (TYLENOL) 325 MG tablet 650 mg amLODIPine 10 mg oral tablet (11 sources) Dihydropyridine Calcium Channel Ericka Start: 10-03-2021 take 1 tablet by mouth once daily amLODIPine (NORVASC) 10 mg tablet Take 1 tablet by mouth once daily. 0 10/03/2021 Suspended Start: 07-09-2021 End: 07-09-2022 take 4 tablets by mouth once daily amLODIPine (NORVASC) 2.5 MG tablet Take 4 Tablets (10 mg) by mouth daily 360 Tablet 3 07/09/2021 07/09/2022 Active Comment on above: Take 1 tablet by [facility] once daily. ascorbic acid 226 mg / beta carotene 44143 unt / cuprous oxide 0.8 mg / dl-alpha tocopheryl acetate 200 unt / zinc oxide 34.8 mg oral capsule (20 sources) Vitamin C Start: 08-26-2023 End: 07-06-2024 take 1 capsule by mouth twice daily at mealtime Vit A,C,P-Rumf-Qeiymt (PRESERVISION AREDS) 4,296 mcg-226 mg-90 mg cap Take 1 capsule by mouth twice daily. Take with food. 60 capsule 0 08/26/2023 07/06/2024 Discontinued (Discontinued by another Health Care Provider) Start: 08-26-2023 End: 07-06-2024 PRESERVISION AREDS-2 250-90- 40-1 mg Start: 08-26-2023 PRESERVISION A REDS-2 250-90-40-1 mg Start: 08-26-2023 take 1 capsule by [facility] twice daily at mealtime PRESERVISION AREDS-2 250-90-40-1 mg take 1 capsule by mouth twice a day with food 0 08/26/2023 Suspended Start: 08-26-2023 take 1 capsule by [facility] twice daily at mealtime PRESERVISION AREDS-2 250-90-40-1 mg take 1 capsule by mouth twice a day with food 0 08/26/2023 Active Comment on above: Take 1 capsule by [facility] twice daily. Take with food. take 1 capsule by [facility] twice a day with food bumetanide 1 mg oral tablet (20 sources) Loop Diuretic Start: 03-26-2024 End: 07-06-2024 take 1 tablet by mouth once daily bumetanide (BUMEX) 1 mg tablet Take 1 tablet by mouth once daily. 30 tablet 1 03/26/2024 07/06/2024 Discontinued (Discontinued by another Health Care Provider) Start: 02-16-2024 End: 03-26-2024 take 1 tablet by mouth twice daily bumetanide (BUMEX) 1 mg tablet Take 1 tablet by mouth two times a day. 60 tablet 0 02/16/2024 03/26/2024 Discontinued Comment on above: Take 1 tablet by nils th two times a day. ciprofloxacin 750 mg oral tablet (9 sources) Quinolone Antimicrobial Start: 10-23-20 End: 11-13-20 take 1 tablet by mouth three times daily ciprofloxacin HCl (CIPRO) 750 mg tablet Take 1 tablet by mouth three times daily for 21 days. 63 tablet 0 10/23/2022 11/05/2022 Discontinued Start: 08-26-2022 End: 09-09-2022 take 1 tablet by mouth three times daily ciprofloxacin HCl (CIPRO) 750 mg tablet Take 1 tablet by mouth three times daily for 14 days. 42 tablet 0 08/26/2022 09/09/2022 Active Start: 07-25-2022 End: 08-15-2022 take 1 tablet by mouth twice daily ciprofloxacin HCl (CIPRO) 750 mg tablet Indications: Cystic fibrosis with pulmonary manifestations (HCC) , Hemoptysis , Pseudomonas aeruginosa infection , Burkholderia cepacia infection Take 1 tablet by mouth twice daily for 21 days. 42 tablet 0 07/25/2022 08/15/2022 Suspended Comment on above: Take 1 tablet by nils th twice daily for 21 days. Take 1 tablet by nils th three times daily for 14 days. Take 1 tablet by nils th three times daily for 21 days. citalopram 20 mg oral tablet (20 sources) Serotonin Reuptake Inhibitor Start: 2 End: 3 take 1 tablet by mouth once daily citalopram hydrobromide (CELEXA) 20 mg tablet Indications: CF (cystic fibrosis) (HCC) , 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) , Chronic pansinusitis , Pseudomonas aeruginosa infection , Burkholderia cepacia infection , Hemoptysis Take 1 tablet by mouth once daily. 90 tablet 4 09/11/2022 07/02/2023 Discontinued End: 09-11-2022 citalopram hydrobromide (ANTONELLA EXA) 10 mg tablet Take 20 mg by mouth. 0 09/11/2022 Discontinued take 50 mg by mouth once daily C ITALOPRAM HYDROBROMIDE PO Take 50 mg by mouth daily 0 Active Comment on above: Take 20 mg by mouth. Take 1 tablet by nils once daily. Take 20 mg by mouth once daily. Reports not taking at this time. Dbnmoqqc-Xghdfvv-E vacaf&Ivacaf (Trikafta) oral tablet therapy pack 1 Tablet (1 source) Start: 05-12-2022 End: 05-14-2022 take 2 tablets by mouth once daily in the morning, then take 1 tablet by mouth once in the morning 1 Tablet, Oral, DAILY, First dose on 05/12/22 at 1630, Until Discontinued Home Medication: 2 orange tablets in AM every even day, and 1 orange table in AM every odd day. Do not take blue pills. Take with fat containing food. Home supply verified over the phone with OLEKSANDR Pryor at [facility] 05-12-22. RN must override scan for administration. Home Medication: 2 orange tablets in AM every even day, and 1 orange table in AM every odd day. Do not take blue pills. Take with fat containing food Brand Name: Trikafta Generic name: elexacaftor/tezacaftor /ivacaftor Specific therapeutic reason for requesting non-formulary or high cost medication: To prevent interruption of course of therapy initiated prior to admission (Home medication) Attending Provider: CURTIS CISNEROS V elexacaftor-tezaca ftor-ivacaftor (TRIKAFTA) 100-50-75 mg(d) /150 mg (n) tablet (20 sources) Start: 09-25-2022 End: 07-23-2023 elexacaftor-tezacaftor -ivacaftor (TRIKAFTA) 100-50-75 mg(d) /150 mg (n) tablet Take 2 tablets by mouth every 48 hours. Take 2 orange tablets on even number days. Then take 1 tablet on Odd number days. Discard blue tablets. DO NOT crush, chew, or open. 84 Each 1 09/25/2022 07/23/2023 Discontinued Start: 10-26-2022 elexacaftor-te zacaftor-ivacaftor (TRIKAFTA) 100-50-75 mg(d) /150 mg (n) tablet Take 2 tablets by mouth every 48 hours. Take 2 orange tablets on even number days. Then take 1 tablet on Odd number days. Discard blue tablets. DO NOT crush, chew, or open. 84 Each 1 09/25/2022 Suspended Start: 09-25-2022 elexacaftor-te zacaftor-ivacaftor (TRIKAFTA) 100-50-75 mg(d) /150 mg (n) tablet Take 2 tablets by mouth every 48 hours. Take 2 orange tablets on even number days. Then take 1 tablet on Odd number days. Discard blue tablets. DO NOT crush, chew, or open. 84 Each 1 09/25/2022 Active End: 09-25-2022 xpevasarayg-dlrckbhlyr-idvls ftor (TRIKAFTA) 100-50-75 mg(d) /150 mg (n) tablet Take 2 tablets by mouth every 48 hours. Take 2 orange tablets on even number days. Then take 1 tablet on Odd number days. Discard blue tablets. DO NOT crush, chew, or open. 0 09/25/2022 Discontinued elexacaftor-teza caftor-ivacaftor (TRIKAFTA) 100-50-75 mg(d) /150 mg (n) tablet Take 2 tablets by mouth every 48 hours. Take 2 orange tablets on even number days. Then take 1 tablet on Odd number days. Discard blue tablets. DO NOT crush, chew, or open. 0 Active elexacaftor-teza caftor-ivacaftor (TRIKAFTA) 100-50-75 mg(d) /150 mg (n) tablet Take 2 tablets by mouth every 48 hours. Take 2 orange tablets on even number days. Then take 1 tablet on Odd number days. Discard blue tablets. DO NOT crush, chew, or open. 0 Suspended Comment on above: Take 2 tablets by mo uth every 48 hours. Take 2 orange tablets on even number days. Then take 1 tablet on Odd number days. Discard blue tablets. DO NOT crush, chew, or open. fluticasone propionate 0.05 mg/actuat metered dose nasal spray (20 sources) Corticosteroid Start: End: take 1-2 spray(s) nasal route once daily fluticasone (FLONASE) 50 mcg/actuation nasal spray Indications: Cystic fibrosis (HCC) , Chronic sinusitis, unspecified location Use 1-2 Sprays in each nostril once daily. 16 g 11 03/19/2023 03/18/2024 Start: 03-10-2023 End: 03-18-2024 take 1 puff(s) by inhalation twice daily fluticasone (FLOVENT) 220 mcg/actuation inhaler Indications: Cystic fibrosis (HCC) , Cystic fibrosis with pulmonary exacerbation (HCC) Inhale 1 Puff as instructed twice daily. 1 Each 03/19/2023 03/18/2024 Start: 2022 End: 10-15-2022 take 2 spray(s) nasal route twice daily fluticasone (FLONASE) 50 mcg/actuation nasal spray Use 2 Sprays in each nostril twice daily. 16 g 11 2022 10/15/2022 Active Start: 2022 End: 03-10-2023 take 1 puff(s) by inhalation once daily as needed fluticasone (FLOVENT) 220 mcg/actuation inhaler Inhale 1 Puff as instructed once daily as needed. 1 Inhaler 11 2022 03/10/2023 Discontinued Start: 05-12-2022 End: 05-14-2022 1 Calvin, Each Nare, 2 TIMES DAILY, 180 doses, First dose on 05/12/22 at 2100, Last dose on 08/10/22 at 0900 OP SI Calvin by Each Nare route 2 times daily Start: 01-14-2022 End: 01-14-2023 fluticasone (FLONASE) 50 MCG /ACT nasal spray 1 Calvin by Each Nare route 2 times daily 1 g 0 01/14/2022 01/14/2023 Active Start: 01-14-2022 End: 2022 fluticasone (FLOVENT) 220 mcg/actuation inhaler Inhale 1 Puff as instructed. 0 01/14/2022 2022 Discontinued Start: 01-14-2022 End: 01-14-2023 take 1 puff(s) by inhalation twice daily 1 Puff, Inhalation, 2 TIMES DAILY, 180 doses, First dose on 05/12/22 at 2100, Last dose on 08/10/22 at 0900 Rinse mouth with water (without swallowing) or brush teeth after inhalation.OP SIG:Inhale 1 Puff into the lungs 2 times daily Comment on above: Use 2 Sprays in each nostril twice daily. Inhale 1 Puff as ins tructed once daily as needed. Inhale 1 Puff as ins tructed. Inhale 1 Puff as ins tructed twice daily. Use 1-2 Sprays in ea ch nostril once daily. fluticasone / salmeterol (20 sources) Corticosteroid, beta2-Adrenergic Agonist Start: 07-17-20 End: 02-16-20 take 1 puff(s) by inhalation twice daily fluticasone-salmeter ol (ADVAIR) 500-50 mcg/dose dsdv Inhale 1 Puff as instructed twice daily. 180 Each 4 2022 02/16/2024 Discontinued Start: 2022 take 1 puff(s) by in halation twice daily fluticasone-salmeterol (ADVAIR) 500-50 mcg/dose dsdv Inhale 1 Puff as instructed twice daily. 180 Each 4 2022 Suspended Start: 2022 take 1 puff(s) by in halation twice daily fluticasone-salmeterol (ADVAIR) 500-50 mcg/dose dsdv Inhale 1 Puff as instructed twice daily. 180 Each 4 2022 Active Start: 2022 End: 10-15-2022 take 1 puff(s) by inhalation twice daily fluticasone-salmeterol (ADVAIR) 500-50 mcg/dose dsdv Inhale 1 Puff as instructed twice daily. 180 Each 4 2022 10/15/2022 Suspended Start: 2022 End: 10-15-2022 take 1 puff(s) by inhalation twice daily fluticasone-salmeterol (ADVAIR) 500-50 mcg/dose dsdv Inhale 1 Puff as instructed twice daily. 180 Each 4 2022 10/15/2022 Active Start: 05-13-2022 End: 05-14-2022 Fluticasone-Salmeterol (ADVA IR) 500-50 mcg diskus inhaler 1 Puff Start: 01-14-2022 End: 2022 fluticasone-salmeterol (ADVA IR) 500-50 mcg/dose dsdv Inhale 1 Puff as instructed. 0 01/14/2022 2022 Discontinued Start: 01-14-2022 take 1 puff(s) by [facility] twice daily fluticasone-salmeterol (ADVAIR) 500-50 MCG/DOSE diskus inhaler Inhale 1 Puff into the lungs 2 times daily Rinse mouth after each use. 1 Each 11 01/14/2022 Active take 1 puff(s) by in halation twice daily fluticasone-salmeterol (ADVAIR DISKUS) 500-50 mcg/dose dsdv Inhale 1 Puff as instructed two times a day. Active take 1 puff(s) by in halation twice daily fluticasone-salmeterol (ADVAIR DISKUS) 500-50 mcg/dose dsdv Inhale 1 Puff as instructed two times a day. 0 Active Comment on above: Inhale 1 Puff as ins tructed twice daily. Inhale 1 Puff as ins tructed. 1000 ml glucose 500 mg/ml injection (2 sources) Start: 05-12-2022 End: 05-14-2022 25 g (0.665 g/kg/DOSE), Intravenous, PRN, Starting on 05/12/22 at 1624, Until Tu05/14/22 at 1711, Administer over 3-5 Minutes, Other, for hypoglycemia (blood sugar less than 70) and patient not alert Start: 05-12-2022 End: 05-14-2022 12 g (0.319 g/kg/DOSE), Oral , PRN, Starting on 05/12/22 at 1624, Until Fri05/14/22 at 1711, Low blood sugar heparin (12 sources) Unfractionated Heparin, Anti-coagulant Start: 11-12-2022 End: 11-26-2022 inject 5 mL intravenously every eight hours heparin (HEPARIN LOCKFLUSH,PORCINE,,PF,) 10 unit/mL injection Inject 5 mL intravenously every 8 hours for 14 days. Flush PICC after antibiotics SASH method 210 mL 0 11/12/2022 11/26/2022 Start: 11-12-2022 End: 11-26-2022 inject 5 mL intravenously every eight hours heparin (HEPARIN LOCKFLUSH,PORCINE,,PF,) 10 unit/mL injection Inject 5 mL intravenously every 8 hours for 14 days. Flush PICC after antibiotics SASH method 210 mL 0 11/12/2022 11/26/2022 Active Comment on above: Inject 5 mL intraven ously every 8 hours for 14 days. Flush PICC after antibiotics SASH method insulin Lispro (HumaLOG) injection (1 source) Start: 05-12-20 End: 05-12-20 insulin Lispro (HumaLOG) injection insulin lispro (HumaLOG) injection (Meals/Bedtime-Vial Calculator) 0-5 Units (1 source) Start: 05-12-20 End: 05-14-20 insulin lispro (HumaLOG) injection (Meals/Bedtime-Vial Calculator) 0-5 Units levoFLOXacin 750 mg oral tablet (9 sources) Quinolone Antimicrobial Start: 02-27-20 End: 03-12-20 take 1 tablet by mouth once daily levoFLOXacin (LEVAQUIN) 750 mg tablet Take 1 tablet by mouth once daily for 14 days. 14 tablet 0 02/26/2023 03/10/2023 Discontinued Comment on above: Take 1 tablet by nils once daily for 14 days. 2 ml metoclopramide 5 mg/ml prefilled syringe (1 source) Dopamine-2 Receptor Antagonist Start: 05-12-20 End: 05-12-20 metoclopramide (REGLAN) injection 10 mg Start: 05-12-2022 End: 05-12-2022 metoclopramide (REGLAN) inje ction 10 mg MVW COMPLETE FORMULATION Capsule 2 Capsule (1 source) Start: 05-12-2022 End: 05-14-2022 take 2 capsules by mouth once daily 2 Capsule, Oral, DAILY, 90 doses, First dose on 05/12/22 at 1630, Last dose on Fri08/09/22 at 0900 OP SIG:Take 2 Capsules by mouth daily ondansetron 4 mg disintegrating oral tablet (1 source) Serotonin-3 Receptor Antagonist Start: 05-12-2022 End: 05-12-2022 ondansetron (ZOFRAN-ODT) disintegrating tablet 4 mg Start: 05-12-2022 End: 05-12-2022 ondansetron (ZOFRAN-ODT) dis integrating tablet 4 mg Oxygen (1 source) Start: 05-12-2022 End: 05-14-2022 Oxygen pantoprazole 40 mg delayed release oral tablet (20 sources) Proton Pump Inhibitor Start: 02-16-2024 End: 07-06-2024 take 1 tablet by mouth twice daily before mealtime, then take 4 tablets by mouth in the evening pantoprazole DR (PROTONIX) 40 mg tablet Take 1 tablet by mouth two times a day before meals at 6 am and 4 pm. 60 tablet 1 02/16/2024 07/06/2024 Discontinued (Discontinued by another Health Care Provider) Comment on above: Take 1 tablet by nils two times a day before meals at 6 am and 4 pm. polyethylene glycol 3350 85411 mg powder for oral solution (20 sources) Osmotic Laxative Start: 02-16-2024 End: 07-06-2024 polyethylene glycol 3350 17 gram packet Take 1 Packet by mouth once daily as needed. Dissolve dose in 4 - 8 ounces of liquid and take as directed. 0 02/16/2024 07/06/2024 Discontinued (Discontinued by another Health Care Provider) Start: 12-04-2023 End: 02-16-2024 polyethylene glycol 3350 (ND RALAX) 17 gram/dose powder Indications: Cystic fibrosis (HCC) Take 34 g by mouth four times daily. Dissolve dose in 4 - 8 ounces of liquid and take as directed. 510 g 1 12/04/2023 02/16/2024 Discontinued Start: 05-12-2022 End: 05-14-2022 take 0.452 g by mouth once daily 17 g (0.452 g/kg/DAY), Oral, DAILY, First dose on 05/12/22 at 1630, Until Discontinued Nursing to dilute with 240 ml of fluid Start: 02-25-2022 polyethylene g lycol (MIRALAX;GLYCOLAX) 17 GM/SCOOP powder Take 17 g by mouth daily Take one scoop daily mixed in 8 ounces fluid. (may increase up to 2-3 times a day prn) 578 g 11 02/25/2022 Active Comment on above: Take 34 g by mouth f our times daily. Dissolve dose in 4 - 8 ounces of liquid and take as directed. Take 1 Packet by nils once daily as needed. Dissolve dose in 4 - 8 ounces of liquid and take as directed. predniSONE 20 mg oral tablet (4 sources) Start: 2 End: 3 take 2 tablets by mouth once daily predniSONE (DELTASONE) 20 mg tablet Take 2 tablets by mouth once daily for 5 days. 10 tablet 0 11/27/2022 12/02/2022 Comment on above: Take 2 tablets by [facility] once daily for 5 days. sennosides, [facility] 8.6 mg oral tablet (1 source) Start: 2 End: 2 senna (SENOKOT) tablet 8.6 mg torsemide 10 mg oral tablet (20 sources) Loop Diuretic Start: 3 End: 4 take 1 tablet by mouth once daily torsemide (DEMADEX) 10 mg tablet Take 1 tablet by mouth once daily. 30 tablet 0 07/24/2023 02/16/2024 Discontinued Comment on above: Take 1 tablet by [facility] once daily. TRIKAFTA 100-50-75 mg(d) /150 mg (n) tablet (7 sources) Start: 2 TRIKAFTA 100-50-75 mg(d) /150 mg (n) tablet vitamin a 63138 unt oral capsule (20 sources) Vitamin A Start: 4 End: 4 take 1 capsule by mouth once daily vitamin A (AQUASOL A) 10,000 unit capsule Indications: Cystic fibrosis (HCC) , 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) Take 1 capsule by mouth once daily. 30 capsule 1 12/04/2023 07/06/2024 Discontinued (Discontinued by another Health Care Provider) Comment on above: Take 1 capsule by [facility] once daily. vitamin k1 5 mg oral tablet (2 sources) Warfarin Reversal Agent, Vitamin K Start: 2 End: 2 take 1 tablet by mouth once daily 5 mg (0.133 mg/kg/DOSE), Oral, 3 TIMES WEEKLY (Once per day on Fri), 39 doses, First dose on Fri05/13/22 at 0900, Last dose on Fri08/09/22 at 0900 OP SIG:Take 1 Tab by mouth. Take 5mg on Friday, Friday and Friday water 1000 mg/ml injectable solution (1 source) Start: 2 End: 2 10 mL (0.266 ml/kg/DOSE), Intravenous, PRN, Starting on Fri05/12/22 at 1624, Until Fri05/14/22 at 1711, For mixture of medications For mixture of medications zinc sulfate 220 mg oral capsule (20 sources) Start: 4 End: 4 take 1 capsule by mouth once daily, then take 2 capsules by mouth every week zinc sulfate 220 mg capsule Indications: Cystic fibrosis (HCC) , 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) Take 1 capsule by mouth once daily for 2 weeks and 2 capsules per week thereafter 30 capsule 3 12/04/2023 07/06/2024 Discontinued (Discontinued by another Health Care Provider) Comment on above: Take 1 capsule by mo [facility] once daily for 2 weeks and 2 capsules per week thereafter Problems Active Problems Problem Classification Problem Date Documented Da te Episodic/Chronic Allergic reactions (2 sources) Allergic bronchopulmonary aspergillosis; Translations: [Allergic bronchopulmonary aspergillosis] Onset: 9 Chronic Anxiety disorders (20 sources) Mixed anxiety and depressive disorder; Translations: [Anxiety disorder, unspecified] Onset: 3 07-03-2023 Chronic Asthma (2 sources) Uncomplicated moderate persistent asthma; Translations: [Moderate persistent asthma, uncomplicated] Onset: 0 Chronic Coagulation and hemorrhagic disorders (20 sources) Blood coagulation disorder; Translations: [Coagulation defect, unspecified] Onset: 3 07-04-2023 Chronic Cystic fibrosis (20 sources) Cystic fibrosis of the lung; Translations: [Cystic fibrosis with pulmonary manifestations] Onset: 0 Resolved: 4 Chronic Deficiency and other anemia (20 sources) Anemia of chronic disease; Translations: [Anemia in other chronic diseases classified elsewhere] Onset: 3 07-26-2023 Chronic Diabetes mellitus with complications (20 sources) Type 1 diabetes mellitus with hyperglycemia; Translations: [Hyperglycemia due to type 1 diabetes mellitus] Onset: 7 Resolved: 2 09-11-2020 Chronic Diabetes mellitus without complication (1 source) Diabetes mellitus due to underlying condition without complications; Translations: [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)] Onset: 3 Chronic Esophageal disorders (20 sources) Gastroesophageal reflux disease without esophagitis; Translations: [Gastro-esophageal reflux disease without esophagitis] Onset: 0 Chronic Essential hypertension (20 sources) Essential hypertension; Translations: [Essential (primary) hypertension] Onset: 2 11-05-2022 Chronic Gastroduodenal ulcer (except hemorrhage) (20 sources) Ulcer of duodenum; Translations: [Duodenal ulcer, unspecified as acute or chronic, without hemorrhage or perforation] Onset: 3 2023 Chronic Mood disorders (20 sources) Depressive disorder; Translations: [Depression] Onset: 3 03-07-2023 Chronic Nausea and vomiting (2 sources) Intractable nausea and vomiting; Translations: [Nausea with vomiting, unspecified] Onset: 2 Episodic Nutritional deficiencies (20 sources) Vitamin D deficiency; Translations: [Vitamin D deficiency, unspecified] Onset: 2 Chronic Osteoporosis (4 sources) Osteoporosis; Translations: [Age-related osteoporosis without current pathological fracture] Onset: 3 08-01-2023 Chronic Other gastrointestinal disorders (1 source) Malabsorption syndrome; Translations: [Other intestinal malabsorption] 08-18-2023 Chronic Other gastrointestinal disorders (20 sources) Chronic constipation; Translations: [Other constipation] 07-03-2023 Episodic Other hematologic conditions (2 sources) Hypersplenism; Translations: [Hypersplenism] Onset: 0 Episodic Other infections; including parasitic (2 sources) Disorder due to infection; Translations: [Unspecified infectious disease] Episodic Other liver diseases (2 sources) Unspecified cirrhosis of liver; Translations: [Cirrhosis of liver without mention of alcohol] Onset: 0 Chronic Other liver diseases (20 sources) Portal hypertension; Translations: [Portal hypertension] Onset: 0 Chronic Other liver diseases (2 sources) Biliary cirrhosis; Translations: [Biliary cirrhosis, unspecified] Onset: 0 Chronic Other liver diseases (20 sources) Cirrhosis of liver; Translations: [Unspecified cirrhosis of liver] Onset: 3 07-08-2023 Chronic Other liver diseases (1 source) Other cirrhosis of liver; Translations: [Other cirrhosis of liver (HCC)] Onset: 3 Chronic Other liver diseases (2 sources) Liver disease, unspecified; Translations: [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)] Onset: 3 Chronic Other liver diseases (1 source) Enzyme level - finding; Translations: [Transaminitis] Episodic Other lower respiratory disease (2 sources) Disorder of lung; Translations: [Other disorders of lung] Onset: 0 Episodic Other lower respiratory disease (3 sources) Hemoptysis; Translations: [Hemoptysis] Onset: 4 Resolved: 8 02-09-2018 Episodic Other lower respiratory disease (1 source) Dyspnea; Translations: [Dyspnea, unspecified] 02-12-2024 Episodic Other nutritional; endocrine; and metabolic disorders (20 sources) Hypomagnesemia; Translations: [Hypomagnesemia] Onset: 2 11-08-2022 Chronic Other nutritional; endocrine; and metabolic disorders (20 sources) Hypercalcemia; Translations: [Hypercalcemia] Onset: 3 07-08-2023 Chronic Other nutritional; endocrine; and metabolic disorders (20 sources) Edema; Translations: [Other disorders of plasma-protein metabolism, not elsewhere classified] Onset: 4 02-14-2024 Chronic Other nutritional; endocrine; and metabolic disorders (2 sources) General finding of height; Translations: [Short stature (child)] Onset: 0 Episodic Other upper respiratory disease (2 sources) Seasonal allergic rhinitis; Translations: [Other seasonal allergic rhinitis] Onset: 0 Chronic Other upper respiratory infections (20 sources) Chronic pansinusitis; Translations: [Chronic pansinusitis] Onset: 2 2022 Chronic Respiratory failure; insufficiency; arrest (adult) (20 sources) Jmrkm-[id number] respiratory failure; Translations: [Acute and chronic respiratory failure with hypoxia] Onset: 2 11-06-2022 Chronic Unclassified (1 source) Unknown / UNK(Unknown) Onset: 8 Unclassified (1 source) Recheck Onset: 4 Past or Other Problems Problem Classification Problem Date Documented Da te Episodic/Chronic Abdominal pain (20 sources) Epigastric pain; Translations: [Epigastric pain] Onset: 07-02-2023 07-03-2023 Episodic Acute and unspecified renal failure (20 sources) Acute injury of kidney; Translations: [Acute kidney failure, unspecified] Onset: 05-12-2022 Resolved: 05-14-2022 Episodic Acute posthemorrhagic anemia (20 sources) Acute posthemorrhagic anemia; Translations: [Acute posthemorrhagic anemia] Onset: 07-05-2023 07-05-2023 Episodic Administrative/social admission (1 source) Dietary counseling and surveillance; Translations: [Dietary counseling and surveillance] Onset: 03-05-2024 Episodic Bacterial infection; unspecified site (20 sources) Infection caused by Burkholderia; Translations: [Other bacterial infections of unspecified site] Onset: 06-20-2019 Episodic Cardiac dysrhythmias (1 source) Tachycardia; Translations: [Tachycardia, unspecified] Onset: 06-11-2018 Resolved: 02-22-2022 02-22-2022 Episodic Deficiency and other anemia (20 sources) Normocytic anemia; Translations: [Anemia, unspecified] Onset: 07-02-2023 07-03-2023 Episodic Deficiency and other anemia (20 sources) Iron deficiency anemia; Translations: [Iron deficiency anemia, unspecified] Onset: 07-03-2023 07-04-2023 Episodic Deficiency and other anemia (20 sources) Anemia due to multiple mechanisms; Translations: [Other specified anemias] Onset: 07-11-2023 07-11-2023 Episodic Fluid and electrolyte disorders (20 sources) Hyponatremia; Translations: [Hypo-osmolality and hyponatremia] Onset: 03-12-2019 Resolved: 02-08-2022 02-08-2022 Episodic Immunizations and screening for infectious disease (20 sources) Culture positive for methicillin resistant Staphylococcus aureus; Translations: [Carrier or suspected carrier of Methicillin resistant Staphylococcus aureus] Onset: 01-15-2013 Resolved: 06-15-2019 06-15-2019 Episodic Influenza (20 sources) Upper respiratory tract infection due to Influenza A; Translations: [Influenza due to other identified influenza virus with other respiratory manifestations] Onset: 11-05-2022 11-05-2022 Episodic Noninfectious gastroenteritis (1 source) Eosinophilic gastritis; 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] Onset: 12-15-1995 Resolved: 12-01-2004 12-07-2009 Chronic Other bone disease and musculoskeletal deformities (1 source) Osteopenia; Translations: [Other specified disorders of bone density and structure, unspecified site] Onset: 12-07-2009 02-23-2018 Episodic Other circulatory disease (20 sources) Bleeding; Translations: [Hemorrhage, not elsewhere classified] Onset: 02-05-2024 Resolved: 02-16-2024 02-05-2024 Episodic Other gastrointestinal disorders (20 sources) Ascites; Translations: [Other ascites] Onset: 07-09-2023 07-09-2023 Episodic Other infections; including parasitic (1 source) Unspecified infectious disease; Translations: [Infection] Onset: 02-19-2024 Episodic Other liver diseases (20 sources) Alkaline phosphatase raised; Translations: [Abnormal levels of other serum enzymes] Onset: 07-08-2023 07-08-2023 Episodic Other liver diseases (3 sources) Abnormal levels of other serum enzymes; Translations: [Elevated alkaline phosphatase level] Onset: 07-08-2023 Episodic Other nutritional; endocrine; and metabolic disorders (20 sources) Underweight; Translations: [Underweight] Onset: 2022 2022 Episodic Other screening for suspected conditions (not mental disorders or infectious disease) (5 sources) Patient encounter status; Translations: [Encounter for screening for osteoporosis] Onset: 05-07-2024 Episodic Pancreatic disorders (not diabetes) (20 sources) Pancreatic insufficiency; Translations: [Other specified diseases of pancreas] Onset: 07-04-2023 02-04-2024 Episodic Pneumonia (except that caused by tuberculosis or sexually transmitted disease) (2 sources) Infective pneumonia; Translations: [Pneumonia, unspecified organism] Onset: 03-12-2019 Resolved: 06-20-2020 06-15-2019 Episodic Residual codes; unclassified (20 sources) Delirium; Translations: [Disorientation, unspecified] Onset: 07-05-2023 07-05-2023 Episodic Residual codes; unclassified (20 sources) Edema of lower extremity; Translations: [Localized edema] Onset: 02-03-2024 02-03-2024 Episodic Respiratory failure; insufficiency; arrest (adult) (20 sources) Acute respiratory failure; Translations: [Acute respiratory failure with hypoxia] Onset: 06-16-2019 Resolved: 05-14-2022 Episodic Results Test Name Value Interpretation Reference Range Facility [facility] 08-19-2024 CNOV Office Visit ([facility] ) JAY BARBER ([id number]) 1995 M Date Time Provider Department 08/19/24 8:00 AM PICC NURSE [facility] During your visit today, we recorded the following information about you: Daniel Barone RN 08/19/2024 8:22 AM Signed AMBULATORY PATIENT EDUCATION VASCULAR ACCESS TEAM TOPIC: Peripherally Inserted Central Catheter READINESS TO LEARN COGNITIVE ABILITY: Alert and oriented MOTIVATION TO LEARN: Interested FAMILY SUPPORT: High - Very involved in pt care INSTRUCTION PROVIDED TO: Patient PATIENT LEARNS BEST BY: Individual Instruction FACTORS AFFECTING LEARNING:None PHYSICAL LIMITATIONS AFFECTING LEARNING: None LEARNING RESPONSE METHOD OF INSTRUCTION: Individual instruction PATIENT / FAMILY RESPONSE: Verbalizes understanding of pre-procedure instructions Verbalizes understanding of post-procedure instructions FOLLOW-UP PLAN: Follow-up with Primary Care SUPPLEMENTAL MATERIAL: PICC Line brochure Daniel Barone RN 08/19/2024 8:22 AM Signed PICC NURSE INSERTION NOTE DATE OF PROCEDURE: August 19, 2024 TIME OF PROCEDURE: 0750 ORDERING PHYSICIAN: Dunia INFORMED CONSENT: Obtained per hospital policy. INDICATION FOR LINE PLACEMENT: IV access COPAT CONDITION OF LINE PLACEMENT: Sterile PRIMARY PROCEDURALIST: Orquidea Ochoa RN PRESS OPERATOR AUTOMATIC: Daniel Barone RN PRE-PROCEDURE REVIEW ALLERGIES Allergen Reactions Vancomycin Itching, Rash Gets Red Man syndrome and pt if not premedicated with benadryl prior to Vancomycin infusions. Cefoxitin Rash, Other: See Comments Severe abdominal pain, diarrhea, rash Severe Abdominal Pains Linezolid Rash, GI Upset Known History of Upper Venous Thrombosis: No Known History of Permanent Pacemaker or Automated Implanted Cardiac Device: No Previous Breast Surgery of Lymph Node Dissection: No Estimated Glomerular Filtration Rate Date Value Ref Range Status 08/18/2024 55 (L) >=60 mL/min/1.73m? Final Comment: Estimated Glomerular Filtration Rate (eGFR) is calculated using the 2020 CKD-EPI creatinine equation. This equation utilizes serum creatinine, sex, and age as parameters. The creatinine assay has traceable calibration to isotope dilution-mass spectrometry. Refer to KDIGO guidelines for clinical interpretation. In patients with unstable renal function, e.g. those with acute kidney injury, the eGFR may not accurately reflect actual GFR. eGFR- Date Value Ref Range Status 12/24/2021 >60 Final eGFR Date Value Ref Range Status 12/08/2015 >60 >60mL/min/1.73m2 Final Comment: If the patient is , multiply the result by 1.210. History of Renal Disease: GFR [address] [place] Ultrasound Assessment Complete: Yes PROCEDURE NARRATIVE SAFE PRACTICE Hand Hygiene per Hospital Policy: Yes Skin Preparation Unit Dose Applicator Used: Chloraprep (CHG + alcohol), allowed to dry. Procedure Surface Cleansed with Antimicrobial Wipes: Yes Barriers Used by Proceduralist and all Assisting Personnel: Yes UNIVERSAL PROTOCOL / SAFETY CHECKLIST Procedure to be Performed: Peripherally Inserted Central Catheter Sign In: A Moment of CARE was completed. Personnel directly involved with the procedure wore the appropriate PPE (Personal Protective Equipment). Special equipment: ultrasound, TCS Patient/Surrogate Stated/Verified: PATIENT VERIFIED(optional for EMERGENT procedures): Patient name, Date of , Relevant allergies, and The intended procedure Time Out Communication: Intended patient and procedure match the source documents. Consent documented and matches the intended procedure. Relevant labs, photos, and/or imaging studies have been reviewed. Correct side/site marked and visible. Medications required for procedure verified. Fire risk assessed and interventions discussed. No implant(s) inserted. Sign Out: SIGN OUT (optional for EMERGENT procedures): No specimen collected. All instruments, equipment, possible retained foreign bodies accounted for. Post-procedure follow-up management communicated and Plan of Care Visit completed when applicable. Daniel Barone RN CATHETER PLACEMENT Brand: [id number] Media Lot: [id number] Number of Lumens: 1 Type of PICC: Power Injectable PICC Lumen Size: 4 Mexican PLACEMENT TECHNIQUE Lidocaine: Yes, Lidocaine 1% Volume 1 mL Subcutaneous Modified Seldinger Technique Used to Place Line via the Left Brachial Ultrasound Guidance: Yes Number of Attempts at Insertion: 1 Ensured control of guidewire during all aspects of the procedure: Yes Accounted for entire guidewire upon removal: Yes Internal Length: 38 cm External Length: 2 cm Trim Length: 40 cm Mid-Arm Circumference: 21 centimeters Post Insertion Pain Level Related to Procedure: 0 Action Taken to Address Pain: None needed Verified Placement: Blood return and flushes with ease and Tip location system (more content not included)... Normal [facility] CNPNon 08-19-2024 CNPN Normal [facility] Comprehensive metabolic 2000 panelon 08-19-2024 Albumin [Mass/Vol] 2.7 g/dL Low 3.9 - 4.9 g/dL [facility] ALP [Catalytic activity/Vol] 1043 U/L High 38 - 113 U/L [facility] ALT [Catalytic activity/Vol] 25 U/L 10 - 54 U/L [facility] Anion gap [Moles/Vol] 9 mmol/L 8 - 15 mmol/L [facility] AST [Catalytic activity/Vol] 33 U/L 14 - 40 U/L [facility] Bilirubin [Mass/Vol] 0.6 mg/dL 0.2 - 1 .3 mg/dL [facility] Calcium [Mass/Vol] 8.6 mg/dL 8.5 - 10. 2 mg/dL [facility] Chloride [Moles/Vol] 98 mmol/L 98 - 10 7 mmol/L [facility] CO2 [Moles/Vol] 21 mmol/L Low 22 - 30 mmol/L [facility] Creatinine [Mass/Vol] 1.69 mg/dL High 0.73 - 1.22 mg/dL [facility] GFR/1.73 sq M.predicted among non-blacks MDRD (S/P/Bld) [Vol rate/Area] 55 mL/min/{1.73_m2} Low - PINF [facility] Comment on above: Estimated Glomerular Filtration Rate (eGFR) is calculated using the 2020 CKD-EPI creatinine equation. This equation utilizes serum creatinine, sex, and age as parameters. The creatinine assay has traceable calibration to isotope dilution-mass spectrometry. Refer to KDIGO guidelines for clinical interpretation. In patients with unstable renal function, e.g. those with acute kidney injury, the eGFR may not accurately reflect actual GFR. Glucose [Mass/Vol] 126 mg/dL High 74 - 99 mg/dL [facility] Comment on above: The [place] Diab[employer] Association (ADA) provides guidance for cutoff values for fasting glucose and random glucose. The ADA defines fasting as no caloric intake for at least 8 hours. Fasting plasma glucose results between 100 to 125 mg/dL indicate increased risk for diabetes (prediabetes). Fasting plasma glucose results greater than or equal to 126 mg/dL meet the criteria for diagnosis of diabetes. In the absence of unequivocal hyperglycemia, results should be confirmed by repeat testing. In a patient with classic symptoms of hyperglycemia or hyperglycemic crisis, random plasma glucose results greater than or equal to 200 mg/dL meet the criteria for diagnosis of diabetes. Reference: Standards of Medical Care in Diabetes 2016, [place] [employer]. Diabetes Care. 2016.39(Suppl 1). Interpretation and review of laboratory results Abnormal [facility] Potassium [Moles/Vol] 4.9 mmol/L 3.7 - 5.1 mmol/L [facility] Protein [Mass/Vol] 8.6 g/dL High 6.3 - 8.0 g/dL [facility] Sodium [Moles/Vol] 128 mmol/L Low 136 - 144 mmol/L [facility] Urea nitrogen [Mass/Vol] 26 mg/dL High 9 - 24 mg/dL [facility] MAGNESIUMon 08-19-2024 Magnesium [Mass/Vol] 1.9 mg/dL 1.7 - 2 .3 mg/dL [facility] Magnesium [Mass/Vol]on 08-19 Interpretation and review of laboratory results Normal [facility] No Panel Informationon 08-19 Daniel Barone RN 08/01 8:22 AM PICC NURSE INSERTION NOTE DATE OF PROCEDURE: August 19, 2024 TIME OF PROCEDURE: 0750 ORDERING PHYSICIAN: Dunia INFORMED CONSENT: Obtained per hospital policy. INDICATION FOR LINE PLACEMENT: IV access COPAT CONDITION OF LINE PLACEMENT: Sterile PRIMARY PROCEDURALIST: Orquidea cOhoa RN PRESS OPERATOR AUTOMATIC: Daniel Barone RN PRE-PROCEDURE REVIEW ALLERGIES Allergen Reactions Vancomycin Itching, Rash Gets Red Man syndrome and pt if not premedicated with benadryl prior to Vancomycin infusions. Cefoxitin Rash, Other: See Comments Severe abdominal pain, diarrhea, rash Severe Abdominal Pains Linezolid Rash, GI Upset Known History of Upper Venous Thrombosis: No Known History of Permanent Pacemaker or Automated Implanted Cardiac Device: No Previous Breast Surgery of Lymph Node Dissection: No Estimated Glomerular Filtration Rate Date Value Ref Range Status 08/18/2024 55 (L) >=60 mL/min/1.73m Final Comment: Estimated Glomerular Filtration Rate (eGFR) is calculated using the 2020 CKD-EPI creatinine equation. This equation utilizes serum creatinine, sex, and age as parameters. The creatinine assay has traceable calibration to isotope dilution-mass spectrometry. Refer to KDIGO guidelines for clinical interpretation. In patients with unstable renal function, e.g. those with acute kidney injury, the eGFR may not accurately reflect actual GFR. eGFR- Date Value Ref Range Status 12/24/2021 >60 Final eGFR Date Value Ref Range Status 12/08/2015 >60 >60mL/min/1.73m2 Final Comment: If the patient is , multiply the result by 1.210. History of Renal Disease: GFR [address] Medellin Ultrasound Assessment Complete: Yes PROCEDURE NARRATIVE SAFE PRACTICE Hand Hygiene per Hospital Policy: Yes Skin Preparation Unit Dose Applicator Used: Chloraprep (CHG + alcohol), allowed to dry. Procedure Surface Cleansed with Antimicrobial Wipes: Yes Barriers Used by Proceduralist and all Assisting Personnel: Yes UNIVERSAL PROTOCOL / SAFETY CHECKLIST Procedure to be Performed: Peripherally Inserted Central Catheter Sign In: A Moment of CARE was completed. Personnel directly involved with the procedure wore the appropriate PPE (Personal Protective Equipment). Special equipment: ultrasound, TCS Patient/Surrogate Stated/Verified: PATIENT VERIFIED(optional for EMERGENT procedures): Patient name, Date of , Relevant allergies, and The intended procedure Time Out Communication: Intended patient and procedure match the source documents. Consent documented and matches the intended procedure. Relevant labs, photos, and/or imaging studies have been reviewed. Correct side/site marked and visible. Medications required for procedure verified. Fire risk assessed and interventions discussed. No implant(s) inserted. Sign Out: SIGN OUT (optional for EMERGENT procedures): No specimen collected. All instruments, equipment, possible retained foreign bodies accounted for. Post-procedure follow-up management communicated and Plan of Care Visit completed when applicable. Daniel Barone RN CATHETER PLACEMENT Brand: Bard Lot: [id number] Number of Lumens: 1 Type of PICC: Power Injectable PICC Lumen Size: 4 Mexican PLACEMENT TECHNIQUE Lidocaine: Yes, Lidocaine 1% Volume 1 mL Subcutaneous Modified Seldinger Technique Used to Place Line via the Left Brachial Ultrasound Guidance: Yes Number of Attempts at Insertion: 1 Ensured control of guidewire during all aspects of the procedure: Yes Accounted for entire guidewire upon removal: Yes Internal Length: 38 cm External Length: 2 cm Trim Length: 40 cm Mid-Arm Circumference: 21 centimeters Post Insertion Pain Level Related to Procedure: 0 Action Taken to Address Pain: None needed Verified Placement: Blood return and flushes with ease and Tip location system or device indicates the tip is located in the SVC/CAJ. Line was Flushed with 20 mL normal saline Line Secured with: Securement device Sterile Dressing Applied and Dated: Yes Sterile Caps on all Ports Prior to Leaving Procedure Area: Yes, Disinfection caps applied SPECIMENS: None COMPLICATIONS: None. Some difficulty threading central. Patient Education Materials: Given to patient QUESTIONS or PROBLEMS: Call [phone] SIGNATURE: Daniel Barone RN PATIENT NAME: Jay Barber DATE: August 19, 2024 TIME: 8:08 AM PAGER/CONTACT PHONE: [facility] Radiology Study observation (narrative) [facility] CBC W Auto Differential pane l (Bld)on 08-18-2024 Basophils (Bld) [#/Vol] 0.11 10*3/uL High [facility] Basophils/100 WBC (Bld) 1.0 % [facility] Differential cell count method Nom (Bld) Auto [facility] Eosinophils (Bld) [#/Vol] 0.68 10*3/uL High [facility] Eosinophils/100 WBC (Bld) 6.0 % [facility] Erythrocyte distribution width (RBC) [Ratio] 17.9 % High 11.5 - 15.0 % [facility] Hematocrit (Bld) [Volume fraction] 35.3 % Low 39.0 - 51.0 % [facility] Hemoglobin (Bld) [Mass/Vol] 11.3 g/dL Low 13.0 - 17.0 g/dL [facility] Immature granulocytes (Bld) [#/Vol] 0.07 10*3/uL NINF [facility] Immature granulocytes/100 WBC (Bld) 0.6 % [facility] Interpretation and review of laboratory results Abnormal [facility] Lymphocytes (Bld) [#/Vol] 1.90 10*3/uL [facility] Lymphocytes/100 WBC (Bld) 16.7 % [facility] MCH (RBC) [Entitic mass] 29.0 pg 26.0 - 34.0 pg [facility] MCHC (RBC) [Mass/Vol] 32.0 g/dL 30.5 - 36.0 g/dL [facility] MCV (RBC) [Entitic vol] 90.7 fL 80.0 - 100.0 fL [facility] Monocytes (Bld) [#/Vol] 0.90 10*3/uL [facility] Monocytes/100 WBC (Bld) 7.9 % [facility] Neutrophils (Bld) [#/Vol] 7.71 10*3/uL High [facility] Neutrophils/100 WBC (Bld) 67.8 % [facility] Nucleated RBC (Bld) [#/Vol] [facility] Nucleated RBC/100 WBC (Bld) [Ratio] 0.0 % /100 WBC [facility] Platelet mean volume (Bld) [Entitic vol] 10.1 fL 9.0 - 12.7 fL [facility] Platelets (Bld) [#/Vol] 274 10*3/uL [facility] RBC (Bld) [#/Vol] 3.89 10*6/uL Low 4.20 - 6.00 m/uL [facility] WBC (Bld) [#/Vol] 11.37 10*3/uL High [facility] Basophils (Bld) [#/Vol] 0.11 10*3/uL High <0.11 [facility] Comment on above: Order Comment: Speci men Type: BLOOD SPECIMENOrdering Facility: [facility] Address: [address] [place] [address] Performed By: #### 5 7021-8 ####[facility]CL[facility] [id number] [place] [address] [place] Basophils/100 WBC (Bld) 1.0 % Normal [facility] Comment on above: Order Comment: Speci men Type: BLOOD SPECIMENOrdering Facility: [facility] Address: [address] [place] [address] Performed By: #### 5 7021-8 ####[facility]CL[facility] [id number] [place] [address] [place] Differential cell count method Nom (Bld) Auto Normal [facility] Comment on above: Order Comment: Speci men Type: BLOOD SPECIMENOrdering Facility: [facility] Address: [address] [place] [address] Performed By: #### 5 7021-8 ####[facility] [id number] [place] [address] [place] Eosinophils (Bld) [#/Vol] 0.68 10*3/uL High <0.46 [facility] Comment on above: Order Comment: Speci men Type: BLOOD SPECIMENOrdering Facility: [facility] Address: [address] [place] [address] Performed By: #### 5 7021-8 ####[facility] [id number] [place] [address] [place] Eosinophils/100 WBC (Bld) 6.0 % Normal [facility] Comment on above: Order Comment: Speci men Type: BLOOD SPECIMENOrdering Facility: [facility] Address: [address] [place] [address] Performed By: #### 5 7021-8 ####[facility] [id number] [place] [address] [place] Erythrocyte distribution width (RBC) [Ratio] 17.9 % High 11.5-15.0 [facility] Comment on above: Order Comment: Speci men Type: BLOOD SPECIMENOrdering Facility: [facility] Address: [address] [place] [address] Performed By: #### 5 7021-8 ####[facility] LABIA [id number] [place] [address] [place] Hematocrit (Bld) [Volume fraction] 35.3 % Low 39.0-51.0 [facility] Comment on above: Order Comment: Speci men Type: BLOOD SPECIMENOrdering Facility: [facility] Address: [address] [place] [address] Performed By: #### 5 7021-8 ####[facility] LABIA [id number] [place] [address] [place] Hemoglobin (Bld) [Mass/Vol] 11.3 g/dL Low 13.0-17.0 [facility] Comment on above: Order Comment: Speci men Type: BLOOD SPECIMENOrdering Facility: [facility] Address: [address] [place] [address] Performed By: #### 5 7021-8 ####[facility] LABIA [id number] [place] [address] [place] Immature granulocytes (Bld) [#/Vol] 0.07 10*3/uL Normal <0.10 [facility] Comment on above: Order Comment: Speci men Type: BLOOD SPECIMENOrdering Facility: [facility] Address: [address] [place] [address] Performed By: #### 5 7021-8 ####[facility]IA [id number] [place] [address] [place] Immature granulocytes/100 WBC (Bld) 0.6 % Normal [facility] Comment on above: Order Comment: Speci men Type: BLOOD SPECIMENOrdering Facility: [facility] Address: [address] [place] [address] Performed By: #### 5 7021-8 ####[facility]CL[facility] [id number] [place] [address] [place] Lymphocytes (Bld) [#/Vol] 1.90 10*3/uL Normal 1.00-4.00 [facility] Comment on above: Order Comment: Speci men Type: BLOOD SPECIMENOrdering Facility: [facility] Address: [address] [place] [address] Performed By: #### 5 7021-8 ####[facility] LABIA [id number] [place] [address] [place] Lymphocytes/100 WBC (Bld) 16.7 % Normal [facility] Comment on above: Order Comment: Speci men Type: BLOOD SPECIMENOrdering Facility: [facility] Address: [address] [place] [address] Performed By: #### 5 7021-8 ####[facility] LABIA [id number] [place] [address] [place] MCH (RBC) [Entitic mass] 29.0 pg Normal 26.0-34.0 [facility] Comment on above: Order Comment: Speci men Type: BLOOD SPECIMENOrdering Facility: [facility] Address: [address] [place] [address] Performed By: #### 5 7021-8 ####[facility] LABIA [id number] [place] [address] [place] MCHC (RBC) [Mass/Vol] 32.0 g/dL Normal 30.5-36.0 [facility] Comment on above: Order Comment: Speci men Type: BLOOD SPECIMENOrdering Facility: [facility] Address: [address] [place] [address] Performed By: #### 5 7021-8 ####[facility] [id number] [place] [address] [place] MCV (RBC) [Entitic vol] 90.7 fL Normal 80.0-100.0 [facility] Comment on above: Order Comment: Speci men Type: BLOOD SPECIMENOrdering Facility: [facility] Address: [address] [place] [address] Performed By: #### 5 7021-8 ####[facility]CL[facility] [id number] [address] [address] [place] Monocytes (Bld) [#/Vol] 0.90 10*3/uL High <0.87 [facility] Comment on above: Order Comment: Speci men Type: BLOOD SPECIMENOrdering Facility: [facility] Address: [address] [place] [address] Performed By: #### 5 7021-8 ####[facility]CL[facility] [id number] [place] [address] [place] Monocytes/100 WBC (Bld) 7.9 % Normal [facility] Comment on above: Order Comment: Speci men Type: BLOOD SPECIMENOrdering Facility: [facility] Address: [address] [place] [address] Performed By: #### 5 7021-8 ####[facility]CL[facility] [id number] [place] [address] [place] Neutrophils (Bld) [#/Vol] 7.71 10*3/uL High 1.45-7.50 [facility] Comment on above: Order Comment: Speci men Type: BLOOD SPECIMENOrdering Facility: [facility] Address: [address] [place] [address] Performed By: #### 5 7021-8 ####[facility]CL[facility] [id number] [place] [address] [place] Neutrophils/100 WBC (Bld) 67.8 % Normal [facility] Comment on above: Order Comment: Speci men Type: BLOOD SPECIMENOrdering Facility: [facility] Address: [address] [place] [address] Performed By: #### 5 7021-8 ####[facility]CL[facility] [id number] [place] [address] [place] Nucleated RBC (Bld) [#/Vol] 10*3/uL Normal <0.01 [facility] Comment on above: Order Comment: Speci men Type: BLOOD SPECIMENOrdering Facility: [facility] Address: [address] [place] [address] Performed By: #### 5 7021-8 ####[facility] [id number] [place] [address] [place] Nucleated RBC/100 WBC (Bld) [Ratio] 0.0 /100 WBC Normal [facility] Comment on above: Order Comment: Speci men Type: BLOOD SPECIMENOrdering Facility: [facility] Address: [address] [place] [address] Performed By: #### 5 7021-8 ####[facility] LABIA [id number] [place] [address] [place] Platelet mean volume (Bld) [Entitic vol] 10.1 fL Normal 9.0-12.7 [facility] Comment on above: Order Comment: Speci men Type: BLOOD SPECIMENOrdering Facility: [facility] Address: [address] [place] [address] Performed By: #### 5 7021-8 ####[facility]CL[facility] [id number] [place] [address] [place] Platelets (Bld) [#/Vol] 274 10*3/uL Normal 150-400 [facility] Comment on above: Order Comment: Speci men Type: BLOOD SPECIMENOrdering Facility: [facility] Address: [address] [place] [address] Performed By: #### 5 7021-8 ####[facility]CL[facility] [id number] [place] [address] [place] RBC (Bld) [#/Vol] 3.89 10*6/uL Low 4.20-6.00 [facility] Comment on above: Order Comment: Speci men Type: BLOOD SPECIMENOrdering Facility: [facility] Address: [address] [place] [address] Performed By: #### 5 7021-8 ####[facility]CL[facility] [id number] [place] [address] [place] WBC (Bld) [#/Vol] 11.37 10*3/uL High 3.70-11.00 [facility] Comment on above: Order Comment: Speci men Type: BLOOD SPECIMENOrdering Facility: [facility] Address: [address] [place] [address] Performed By: #### 5 7021-8 ####[facility]CL[facility] [id number] [place] [address] [place] Comprehensive metabolic 2000 panelon 08-18-2024 Albumin [Mass/Vol] 2.7 g/dL Low 3.9-4.9 [facility] Comment on above: Order Comment: Speci men Type: BLOOD SPECIMENOrdering Facility: [facility] Address: [address] [place] [address] Performed By: #### 2 4323-8, 82899-3 ####[facility]CL[facility] [id number] [place] [address] [place] ALP [Catalytic activity/Vol] 1043 U/L High 38-113 [facility] Comment on above: Order Comment: Speci men Type: BLOOD SPECIMENOrdering Facility: [facility] Address: [address] [place] [address] Performed By: #### 2 4323-8, 97515-7 ####[facility]CL[facility] [id number] [place] [id number] [place] ALT [Catalytic activity/Vol] 25 U/L Normal 10-54 [facility] Comment on above: Order Comment: Speci men Type: BLOOD SPECIMENOrdering Facility: [facility] Address: [address] [place] [id number] Performed By: #### 2 4323-8, ####[facility]CL[facility] [id number] [place] [id number] [place] Anion gap [Moles/Vol] 9 mmol/L Normal 8-15 [facility] Comment on above: Order Comment: Speci men Type: BLOOD SPECIMENOrdering Facility: [facility] Address: [address] [place], [place] [address] Performed By: #### 2 4323-8, ####[facility]CL[facility] [id number] [place] [address] [place] AST [Catalytic activity/Vol] 33 U/L Normal 14-40 [facility] Comment on above: Order Comment: Speci men Type: BLOOD SPECIMENOrdering Facility: [facility] Address: [address] [place], [place] [address] Performed By: #### 2 4323-8, ####[facility]CL[facility] [id number] [place] [address] [place] Bilirubin [Mass/Vol] 0.6 mg/dL Normal 0.2-1.3 [facility] Comment on above: Order Comment: Speci men Type: BLOOD SPECIMENOrdering Facility: [facility] Address: [address] [place], [place] [address] Performed By: #### 2 4323-8, ####[facility]CL[facility] [id number] [place] [address] [place] Calcium [Mass/Vol] 8.6 mg/dL Normal 8.5-10.2 [facility] Comment on above: Order Comment: Speci men Type: BLOOD SPECIMENOrdering Facility: [facility] Address: [address] [place], [place] [address] Performed By: #### 2 4323-8, ####[facility] [id number] [facility] [address] [address] [place] Chloride [Moles/Vol] 98 mmol/L Normal 98-107 [facility] Comment on above: Order Comment: Speci men Type: BLOOD SPECIMENOrdering Facility: [facility] Address: [address] [place] [address] Performed By: #### 2 4323-8, ####[facility]CL[facility] [id number] [place] [address] [place] CO2 [Moles/Vol] 21 mmol/L Low 22-30 [facility] Comment on above: Order Comment: Speci men Type: BLOOD SPECIMENOrdering Facility: [facility] Address: [address] [place] [address] Performed By: #### 2 4323-8, ####[facility]CL[facility] [id number] [place] [address] [place] Creatinine [Mass/Vol] 1.69 mg/dL High 0.73-1.22 [facility] Comment on above: Order Comment: Speci men Type: BLOOD SPECIMENOrdering Facility: [facility] Address: [address] [place] [address] Performed By: #### 2 4323-8, ####[facility]CL[facility] [id number] [place] [id number] [place] Creatinine and Glomerular filtration rate.predicted panel (S/P/Bld) 55 mL/min/1.73m??? Low >=60 [facility] Comment on above: Order Comment: Speci men Type: BLOOD SPECIMENOrdering Facility: [facility] Address: [address] [place] [address] Result Comment: Janeth mated Glomerular Filtration Rate (eGFR) is calculated using the 2020 CKD-EPI creatinine equation. This equation utilizes serum creatinine, sex, and age as parameters. The creatinine assay has traceable calibration to isotope dilution-mass spectrometry. Refer to KDIGO guidelines for clinical interpretation. In patients with unstable renal function, e.g. those with acute kidney injury, the eGFR may not accurately reflect actual GFR. Performed By: #### 2 432-, ####[facility]CL[facility] [id number] [place] [address] [place] Glucose [Mass/Vol] 126 mg/dL High 74-99 [facility] Comment on above: Order Comment: Kanu sainz Type: BLOOD SPECIMENOrdering Facility: [facility] Address: [address] [place] [address] Result Comment: The [place] [employer] (ADA) provides guidance for cutoff values for fasting glucose and random glucose. The ADA defines fasting as no caloric intake for at least 8 hours. Fasting plasma glucose results between 100 to 125 mg/dL indicate increased risk for diabetes (prediabetes).Fasting plasma glucose results greater than or equal to 126 mg/dL meet the criteria for diagnosis of diabetes. In the absence of unequivocal hyperglycemia, results should be confirmed by repeat testing. In a patient with classic symptoms of hyperglycemia or hyperglycemic crisis, random plasma glucose results greater than or equal to 200 mg/dL meet the criteria for diagnosis of diabetes.Reference: Standards of Medical Care in Diabetes 2016, [place] [employer]. Diabetes Care. 2016.39(Suppl 1). Performed By: #### 2 4323-07, ####[facility]CL[facility] [id number] [place] [id number] [place] Potassium [Moles/Vol] 4.9 mmol/L Normal 3.7-5.1 [facility] Comment on above: Order Comment: Kanu sainz Type: BLOOD SPECIMENOrdering Facility: [facility] Address: [address] [place] [address] Performed By: #### 2 43202-05, ####[facility]CL[facility] [id number] [address] [address] [place] Protein [Mass/Vol] 8.6 g/dL High 6.3-8.0 [facility] Comment on above: Order Comment: Speci men Type: BLOOD SPECIMENOrdering Facility: [facility] Address: [address] [place] [address] Performed By: #### 2 4323-8, ####[facility]CL[facility] [id number] [place] [address] [place] Sodium [Moles/Vol] 128 mmol/L Low 136-144 [facility] Comment on above: Order Comment: Speci men Type: BLOOD SPECIMENOrdering Facility: [facility] Address: [address] [place] [address] Performed By: #### 2 4323-8, ####[facility]CL[facility] [id number] [place] [address] [place] Urea nitrogen [Mass/Vol] 26 mg/dL High 9-24 [facility] Comment on above: Order Comment: Speci men Type: BLOOD SPECIMENOrdering Facility: [facility] Address: [address] [place] [address] Performed By: #### 2 4323-8, ####[facility]CL[facility] [id number] [place] [address] [place] Magnesium SerPl-mCncon 08-18 Magnesium [Mass/Vol] 1.9 mg/dL Normal 1.7-2.3 [facility] Comment on above: Order Comment: Speci men Type: BLOOD SPECIMENOrdering Facility: [facility] Address: [address] [place] [address] Performed By: #### 2 4323-8, ####[facility] [id number] [place] [id number] [place] VANCOMYCINon 08-18-2024 Vancomycin random [Mass/Vol] ug/mL Low 10.0 - 20.0 ug/mL [facility] Comment on above: Reference ranges and high/low indicator flags are provided as general guidelines only. The treating physician must determine appropriate target levels/dosing based on the specific clinical situation. Result rechecked. Vancomycin Crescent SerPl-mCncon 08-18-2024 Vancomycin random [Mass/Vol] <4.0 Low 10.0-20.0 [facility] Comment on above: Order Comment: Speci men Type: BLOOD SPECIMENOrdering Facility: [facility] Address: [address] [place] [address] Result Comment: Refe rence ranges and high/low indicator flags are provided as general guidelines only. The treating physician must determine appropriate target levels/dosing based on the specific clinical situation.Result rechecked. Performed By: #### 4 091-5 ####[facility] [id number] [place] [address] [place] Vancomycin random [Mass/Vol] on 08-18-2024 Interpretation and review of laboratory results Abnormal [facility] Basic metabolic 2000 panelon 07-16-2024 Anion gap [Moles/Vol] 6 mmol/L Low 8-15 [facility] Comment on above: Order Comment: Speci men Type: BLOOD SPECIMENOrdering Facility: [facility] Address: [address] [place] [address] Performed By: #### 2 4325-3, 48512-2 ####[facility] [id number] [place] [address] [place] Calcium [Mass/Vol] 8.2 mg/dL Low 8.5-10.2 [facility] Comment on above: Order Comment: Speci men Type: BLOOD SPECIMENOrdering Facility: [facility] Address: [address] [place] [address] Performed By: #### 2 4325-3, 29850-4 ####[facility] [id number] [place] [address] [place] Chloride [Moles/Vol] 105 mmol/L Normal 98-107 [facility] Comment on above: Order Comment: Speci men Type: BLOOD SPECIMENOrdering Facility: [facility] Address: [address] [place] [address] Performed By: #### 2 4325-3, 21010-2 ####[facility] [id number] [place] [address] [place] CO2 [Moles/Vol] 20 mmol/L Low 22-30 [facility] Comment on above: Order Comment: Speci men Type: BLOOD SPECIMENOrdering Facility: [facility] Address: [address] [place] [address] Performed By: #### 2 4325-3, 43807-4 ####[facility]GNCJ[facility] [id number] [place] [address] [place] Creatinine [Mass/Vol] 2.36 mg/dL High 0.73-1.22 [facility] Comment on above: Order Comment: Speci men Type: BLOOD SPECIMENOrdering Facility: [facility] Address: [address] [place] [address] Performed By: #### 2 4325-3, 89304-1 ####[facility] PETERSBURGNCA [id number] [address] STATES OF [facility] Creatinine and Glomerular filtration rate.predicted panel (S/P/Bld) 37 mL/min/1.73m??? Low >=60 [facility] Comment on above: Order Comment: Speci men Type: BLOOD SPECIMENOrdering Facility: [facility] Address: [address] [place] [address] Result Comment: Janeth mated Glomerular Filtration Rate (eGFR) is calculated using the 2020 CKD-EPI creatinine equation. This equation utilizes serum creatinine, sex, and age as parameters. The creatinine assay has traceable calibration to isotope dilution-mass spectrometry. Refer to KDIGO guidelines for clinical interpretation. In patients with unstable renal function, e.g. those with acute kidney injury, the eGFR may not accurately reflect actual GFR. Performed By: #### 2 4325-3, 52173-9 ####[facility]ERSBURGNCLIA [id number] [place] [address] [place] Glucose [Mass/Vol] 235 mg/dL High 74-99 [facility] Comment on above: Order Comment: Speci men Type: BLOOD SPECIMENOrdering Facility: [facility] Address: [address] [place] [address] Result Comment: The [place] Diabetes Association (ADA) provides guidance for cutoff values for fasting glucose and random glucose. The ADA defines fasting as no caloric intake for at least 8 hours. Fasting plasma glucose results between 100 to 125 mg/dL indicate increased risk for diabetes (prediabetes).Fasting plasma glucose results greater than or equal to 126 mg/dL meet the criteria for diagnosis of diabetes. In the absence of unequivocal hyperglycemia, results should be confirmed by repeat testing. In a patient with classic symptoms of hyperglycemia or hyperglycemic crisis, random plasma glucose results greater than or equal to 200 mg/dL meet the criteria for diagnosis of diabetes.Reference: Standards of Medical Care in Diabetes 2016, [place] Diabetes Association. Diabetes Care. 2016.39(Suppl 1). Performed By: #### 2 4325-3, 27410-1 ####[facility]GNCA [id number] [place] [address] [place] Potassium [Moles/Vol] 5.5 mmol/L High 3.7-5.1 [facility] Comment on above: Order Comment: Speci men Type: BLOOD SPECIMENOrdering Facility: [facility] Address: [address] [place] [address] Performed By: #### 2 4325-3, 61825-0 ####[facility] [id number] [place] [address] [place] Sodium [Moles/Vol] 131 mmol/L Low 136-144 [facility] Comment on above: Order Comment: Speci men Type: BLOOD SPECIMENOrdering Facility: [facility] Address: [address] [place] [address] Performed By: #### 2 4325-3, 65823-6 ####[facility] CHOCOLIA [id number] [place] [address] [place] Urea nitrogen [Mass/Vol] 24 mg/dL Normal 9-24 [facility] Comment on above: Order Comment: Speci men Type: BLOOD SPECIMENOrdering Facility: [facility] Address: [address] [place] [address] Performed By: #### 2 4325-3, 26062-8 ####[facility] RUSSELLKENDRICKZAKILIA [id number] [place] [address] [place] Hepatic function 2000 panelo n 07-16-2024 Albumin [Mass/Vol] 2.8 g/dL Low 3.9-4.9 [facility] Comment on above: Order Comment: Speci men Type: BLOOD SPECIMENOrdering Facility: [facility] Address: [address] [place] [address] Performed By: #### 2 4325-3, 41973-7 ####[facility] PETERSBURGZAKIJOSEA [id number] [place] [address] [place] ALP [Catalytic activity/Vol] 788 U/L High 38-113 [facility] Comment on above: Order Comment: Speci men Type: BLOOD SPECIMENOrdering Facility: [facility] Address: [address] [place] [address] Performed By: #### 2 4325-3, 63307-0 ####[facility] RUSSELLWNCLIA [id number] [place] [address] [place] ALT [Catalytic activity/Vol] 44 U/L Normal 10-54 [facility] Comment on above: Order Comment: Speci men Type: BLOOD SPECIMENOrdering Facility: [facility] Address: [address] [place] [address] Performed By: #### 2 432-3, 23932-6 ####[facility] [place] MILLTOWNCLIA [id number] [place] [address] [place] AST [Catalytic activity/Vol] 72 U/L High 14-40 [facility] Comment on above: Order Comment: Speci men Type: BLOOD SPECIMENOrdering Facility: [facility] Address: [address] [place] [address] Performed By: #### 2 4324-3, 13146-9 ####[facility] MILLTOWNCLIA [id number] [place] [address] [place] Bilirubin [Mass/Vol] 0.8 mg/dL Normal 0.2-1.3 [facility] Comment on above: Order Comment: Speci men Type: BLOOD SPECIMENOrdering Facility: [facility] Address: [address] [place] [address] Performed By: #### 2 3, 08543-8 ####[facility]GNCL[facility] [id number] [place] [address] [place] Bilirubin.conjugated [Mass/Vol] 0.3 mg/dL High <0.2 [facility] Comment on above: Order Comment: Speci men Type: BLOOD SPECIMENOrdering Facility: [facility] Address: [address] [place] [address] Performed By: #### 2 3, 11015-7 ####[facility] POINTWNCLIA [id number] [place] [address] [place] Protein [Mass/Vol] 7.4 g/dL Normal 6.3-8.0 [facility] Comment on above: Order Comment: Speci men Type: BLOOD SPECIMENOrdering Facility: [facility] Address: [address] [place] [address] Performed By: #### 2 432-3, 12996-4 ####[facility] MILLWNCLIA [id number] [address] [place] CNOVon 07-06-2024 CNOV Office Visit (ENAGST ) ELISABETHJAY ([id number]) 1995 M Date Time Provider Department 07/06/24 2:00 PM STEPHIE RAMIREZ During your visit today, we recorded the following information about you: Blood pressure Weight Height 156/92 42.4 kg 1.575 m Stephie Ramirez APRN.[facility] 07/07/2024 1:14 PM Signed Subjective Date of encounter: 07/06/2024 Jay Barber (1995), is a 28 year old male who presents for Diabetes management Important Lab History: HBA1C:10/2013: 10.8%, 12/2013: 7.4%, 03/2014: 9.6%, 03/2014: 8.1%, 05/2014: 6.7%, 05/2015: 6.9%, 08/2015: 8.4%, 12/2015: HbA1c 8.3%, 03/2016: 8.9%, 05/2016: 7.0%, 01/2018: 9.6%, 05/2018: 10.3%, 08/2018: 8.2%, 10/2018: 7.9%, 01/2019: 8.1%, 03/2019: 6.6%, 07/2019: 6.5%, 12/2019: 6.9%, 07/2020: 6.6%, 08/2020: 6.4%, 01/2021: HbA1C 8.3%, 03/2021: 8.3%, 05/2021: 7.4%, 08/2021: 7.4%, 12/2021: 7.5%, 07/2022: 8.6%, 10/2022: 8.4%, 03/2023: 7.7%, 07/2023: 6.9%, 10/2023: 6.4%, 01/2024: 6.3%, 03/2024: 6.1%, 07/2024: 6.2% Thyroid Function Testin10/2013: TSH 2.29 (0.358-3.740), free T4 1.02 (0.76-1.46), 12/2015: TSH 1.970 (0.358-3.740 uIU/mL), free T4 1.15 (0.76-1.46 ng/dL), 01/2018: TSH 1.735 (0.35-5.5), 12/2018: TSH 1.137 (0.35-5.5), 05/2019: TSH 2.293 (0.35-5.5), 01/2020: TSH 1.754 (0.35-5.5), free T4 1.2 (0.9-1.5), 01/2021: TSH 1.9 (0.27-4.2 uIU/mL), free T4 1.2 (0.9-1.7), 12/2021: TSH 3.41 (0.27-4.2 uIU/mL), free T4 1.1 (0.9-1.7), 07/2023: TSH 2.35 (0.27-4.2 uIU/mL), Renal Function Testin08/2013: creatinine 0.7, 12/2015: creatinine 0.69 mg/dL, eGFR >60,), 05/2018: Creatinine 0.72, 01/2019: Creatinine 0.86, 07/2019: Creatinine 0.73, 07/2020: Creatinine 0.65, 10/2020: Creatinine 0.64, 01/2021: Creatinine 0.81, 03/2021: Creatinine 0.73, 12/2021: Creatinine 0.64, 12/2022: Creatinine 0.78, 03/2023: Creatinine 0.83, 08/2023: Creatinine 1.13 eGFR 90, 10/2023: Creatinine 1.04, 03/2024: Creatinine 1.37 eGFR 71, 03/2024: Creatinine 1.02 Urine for Microalbumin:10/2013: Microalbumin:Creatinine ratio ok,12/2015: microalbumin : creatinine ratio ok, 08/2017: Microalbumin:Creatinine Ratio ok, 10/2018: Microalbumin:Creatinine Ratio 535, 01/03/2020: Microalbumin:Creatinine Ratio 650, 01/2021: Microalbumin:Creatinine Ratio 361. Improved but above goal. Jay states he has used lisinopril in the past but this increased his potassium too much and it was discontinued. He will inquire further with his CF providers about losartan. I advised him to make an appointment with nephrology as we had previously discussed., 03/19/2021: Microalbumin:Creatinine Ratio 1220, 08/2021: still hasn't made appointment with kidney specialist, stressed the importance of this to prevent further kidney damage., 10/2022: prot/creat ratio in epic, making appointment with nephrology, 07/2023: prot/creat ratio in epic Lipid Profile:10/2013: TC 111, HDL 42, LDL 56, TG 56, 12/2015: TC 122, HDL 52, LDL 60, TG 49, 10/2018: TC 160, HDL 72, LDL 71, TG 83, 01/03/2020: TC 253 HDL 133 LDL 112 TG 38, 01/2021: TC 179 HDL 115 LDL 54 TG 51, 03/2021: TC 233 HDL 143 LDL 84 TG 32, 03/2024; TC 147 HDL 72 LDL 64 TG 54 Liver Profile:08/2013: AST 93, ALT 65, Alkaline Phosphatase 811, 12/2015: AST 110 (9-37 U/L), ALT 164 (12-78 U/L), alkaline phosphatase 807 (46-116 U/L), Bilirubin, total 1.3 (0.2-1.0, mg/dL, 05/2018: results in care everywhere, 12/2019: results in care everywhere, 01/2020: labs in [facility], 07/2020; Alkaline Phosphatase 725 (45-117), ALT 77 (16-61), AST 163 (15-37), 12/2020: results in care everywhere., 03/2021: results In care everywhere, 12/2021: Alkaline Phosphatase 918 (38-113), bone percent 13.9%, liver percent 86.1 , 12/2022: liver function monitored by CF providers, 03/2023: in epic, 08/2023: LFTS in [facility], 10/2023: LFTS in [facility], 03/2024: liver test in [facility] Dilated Eye Exam: Patient educated to have ophthalmology visits at least once a year. 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 08/2013: New patient visit for Cystic Fibrosis related Diabetes Previous diabetes related labs from [facility] and [email or web address] [facility] reviewed prior to today's office visit. Any changes made at our last diabetes management visit were abstracted accordingly (if applicable). Today's Office Visit: Jaydon Dennis: reminded patient to make appointment with for osteoporosis again 03/2024 Nephrology: following Hepatology: following. Hematology: had appointment per patient. Lipids: advised to discuss with CF providers, may not be able to treat with high liver enzymes. Endocrinology: we manage patients CFRD only. BP: above goal today. Advised to monitor at home and report to CF providers if above goal. self monitoring blood glucose data : see dexcom report. Average 14 day SG 164 predicted gmi 7.2%, 63% TIR 3% low range. Improving. Occasional late evening elevations. Occasional missed dosages (more content not included)... Normal [facility] HEMOGLOBIN A1C (POC)on 07-06 HbA1c (Bld) [Mass fraction] 6.2 % Abnormal 4.3 - 5.6 % [facility] Comment on above: Location:[facility], [facility] [address], [address] Point of care (POC) Hemoglobin A1c (HGBA1C) testing is intended to assess glucose control and provide a management tool for patients known to have diabetes and their healthcare providers. Target HGBA1C levels may depend on specific clinical circumstances. POC HGBA1C is not intended for use as a diagnostic or screening test; laboratory-based testing should be used for diagnostic purposes. The following information is supplemental and may not be applicable to specific diabetes management situations: The POC device forder operator provides a normal range of 4.2% to 6.5% for the HGBA1C POC test. However, the [place] Diabetes Association guidelines indicate that patients with HGBA1C in the range of 5.7% to 6.4% are at increased risk for development of diabetes and that intervention by lifestyle modification may be beneficial. A HGBA1C level greater than or equal to 6.5% is considered diagnostic of diabetes, pending confirmatory testing. Use of HGBA1C testing to evaluate glucose control may not be appropriate for patients with hemoglobin variants or other conditions (e.g. anemia) that alter red blood cell lifespan. Interpretation and review of laboratory results Abnormal [facility] Bacteria identified Cystic f ibrosis respiratory culture Nom (Sput)Ordered By: Manju Beaulieu on 05-12-2024 Interpretation and review of laboratory results Abnormal [facility] No Staphylococcus au reus isolated. No Pseudomonas aeruginosa isolated. This test was developed and its performance characteristics determined by the [facility]'s [facility] [place] ([facility]). It has not been cleared or approved by the FDA. -[facility] is regulated under CLIA as qualified to perform high-complexity testing. This test is used for clinical purposes. It should not be regarded as investigational or for research. [facility] CYSTIC FIBROSIS RESPIRATORY CULTUREOrdered By: Manju Beaulieu on 05-12-2024 Bacteria identified Cystic fibrosis respiratory culture Nom (Sput) Rare Burkholderia cepacia complex Abnormal [facility] Bacteria identified Cystic fibrosis respiratory culture Nom (Sput) Many normal respiratory vicky Abnormal [facility] Bacteria identified Cystic fibrosis respiratory culture Nom (Sput) Rare Sphingobacterium multivorum Abnormal [facility] MR Biliary ducts and Pancrea tic duct WO and W contrast Ramu 05-07-2024 IMPRESSION: Multifocal segmental discontinuous bile duct dilation as described, most prominent in hepatic segment II, concerning for PBC or PSC. Cirrhotic liver with portal hypertension including multiple varices and mild splenomegaly but only trace ascites. No focal hepatic mass. Pancreatic changes consistent with sequela of cystic fibrosis. Manager Code: PSCB Transcribe Date/Time: May 07 2024 3:02P Dictated by : KELLY KOROMA MD This examination was interpreted and the report reviewed and electronically signed by: KELLY KOROMA MD on May 07 2024 3:14PM [facility] DIVISION OF RADIOLOGY * * *Final Report* * * DATE OF EXAM: May 07 2024 2:15PM [facility] 0730 - MRI PANC/MARYAM WO/W IVCON / PROCEDURE REASON: Abnormal results of liver function studies * * * * Physician Interpretation * * * * MRI ABDOMEN / PANCREAS-BILIARY WITHOUT AND WITH IV CONTRAST HISTORY: History of cystic fibrosis. Study obtained for abnormal LFTs (elevated AST and alkaline phosphatase). TECHNIQUE: Magnet: 1.5T scanner. Multiplanar MRI with multiple sequences before and after contrast. Contrast: IV: 10 ml of Dotarem COMPARISON: Ultrasound 02/06/2024. RESULT: Liver: Cirrhotic morphology. No hepatic steatosis. No mass. Biliary: Segmental bile duct dilation in the posterior aspect of hepatic segment II (23:22, 3:30), and focal duct dilation in segment V (23:40, 4:26) and segment (23:43, 4:23). Findings concerning for sclerosing cholangitis or primary biliary cholangitis. Spleen: No mass. 13 cm renal cortical length, mildly enlarged. Pancreas: Severe atrophy/fatty replacement compatible with the cystic fibrosis. Adrenals: No mass. Kidneys: No solid or cystic mass. No hydronephrosis. GI tract: No dilated bowel. Lymph nodes: No abdominal lymphadenopathy. Mesentery / Peritoneum: Trace ascites. No mass. Vasculature: - Abdominal aorta: No aneurysm. - Celiac and SMA: Patent without stenosis. - Portal venous system (SMV, splenic vein, portal vein and branches): Atretic posterior RIGHT portal vein. Main, anterior RIGHT and LEFT portal vein are all patent. SMV and splenic vein are patent. There are multiple portosystemic venous colaterals, including a spontaneous splenorenal shunt and small mesenteric varices.. - Hepatic veins: Poorly calcified. Bones/Soft Tissues: No acute findings. Localizer images: No additional findings. DIVISION OF RADIOLOGY Provider, [facility] - 05/07/2024 * * *Final Report* * * DATE OF EXAM: May 07 2024 2:15PM [facility] 0730 - MRI PANC/MARYAM WO/W IVCON / PROCEDURE REASON: Abnormal results of liver function studies * * * * Physician Interpretation * * * * MRI ABDOMEN / PANCREAS-BILIARY WITHOUT AND WITH IV CONTRAST HISTORY: History of cystic fibrosis. Study obtained for abnormal LFTs (elevated AST and alkaline phosphatase). TECHNIQUE: Magnet: 1.5T scanner. Multiplanar MRI with multiple sequences before and after contrast. Contrast: IV: 10 ml of Dotarem COMPARISON: Ultrasound 02/06/2024. RESULT: Liver: Cirrhotic morphology. No hepatic steatosis. No mass. Biliary: Segmental bile duct dilation in the posterior aspect of hepatic segment II (23:22, 3:30), and focal duct dilation in segment V (23:40, 4:26) and segment (23:43, 4:23). Findings concerning for sclerosing cholangitis or primary biliary cholangitis. Spleen: No mass. 13 cm renal cortical length, mildly enlarged. Pancreas: Severe atrophy/fatty replacement compatible with the cystic fibrosis. Adrenals: No mass. Kidneys: No solid or cystic mass. No hydronephrosis. GI tract: No dilated bowel. Lymph nodes: No abdominal lymphadenopathy. Mesentery / Peritoneum: Trace ascites. No mass. Vasculature: - Abdominal aorta: No aneurysm. - Celiac and SMA: Patent without stenosis. - Portal venous system (SMV, splenic vein, portal vein and branches): Atretic posterior RIGHT portal vein. Main, anterior RIGHT and LEFT portal vein are all patent. SMV and splenic vein are patent. There are multiple portosystemic venous colaterals, including a spontaneous splenorenal shunt and small mesenteric varices.. - Hepatic veins: Poorly calcified. Bones/Soft Tissues: No acute findings. Localizer images: No additional findings. IMPRESSION IMPRESSION: Multifocal segmental discontinuous bile duct dilation as described, most prominent in hepatic segment II, concerning for PBC or PSC. Cirrhotic liver with portal hypertension including multiple varices and mild splenomegaly but only trace ascites. No focal hepatic mass. Pancreatic changes consistent with sequela of cystic fibrosis. Manager Code: PSC Transcribe Date/Time: May 07 2024 3:02P Dictated by : KELLY KOROMA MD This examination was interpreted and the report reviewed and electronically signed by: KELLY KOROMA MD on May 07 2024 3:14PM EST [facility] Radiology Study observation (narrative) [facility] MR Biliary ducts and Pancrea tic duct WO and W contrast IVOrdered By: Ccf Provider on 05-07-2024 [facility] MRI PANC/MARYAM WO/W IVCONon MRI PANC/MARYAM WO/W IVCON Normal [facility] Bacteria Spt CF Resp Culton 05-05-2024 Bacteria identified Cystic fibrosis respiratory culture Nom (Sput) Abnormal [facility] Comment on above: Performed By: #### 6 23-9 ####[facility] LABCLIA [id number] [address] [address] [place] CNCNPATEDon 05-05-2024 CNCNPATED Normal [facility] CNOVon 05-05-2024 CNOV Normal [facility] CNOV Normal [facility] CNOVon 04-07-2024 CNOV Normal [facility] CNPNon 03-26-2024 CNPN Normal [facility] AFB CULTURE/STAIN CYSTIC FIB ROSISon 03-25-2024 AFB CULTURE/STAIN CYSTIC FIBROSIS CULTURE, AFB: No Acid Fast Bacilli isolated after 42 days AFB STAIN: No acid fast bacilli seen by flurochrome stain Normal [facility] Comment on above: Performed By: #### A FBCF ####[facility] LABCLIA [id number] [place] [id number] [place] Bacteria Spt CF Resp Culton 03-25-2024 Bacteria identified Cystic fibrosis respiratory culture Nom (Sput) Abnormal [facility] Comment on above: Performed By: #### 6 23-9 ####[facility] LABCLIA [id number] [place] [id number] [place] Basic metabolic 2000 panelon 03-25-2024 Anion gap [Moles/Vol] 2 mmol/L Low 9-18 [facility] Comment on above: Order Comment: Speci men Type: BLOOD SPECIMENOrdering Facility: [facility] Address: [address] [place] [address] Performed By: #### 2 4321-2 ####[facility] [id number] [place] [address] [place] Calcium [Mass/Vol] 8.6 mg/dL Normal 8.5-10.2 [facility] Comment on above: Order Comment: Speci men Type: BLOOD SPECIMENOrdering Facility: [facility] Address: [address] [place] [address] Performed By: #### 2 4321-2 ####[facility] MILLWNCLIA [id number] [place] [address] [place] Chloride [Moles/Vol] 110 mmol/L High 97-105 [facility] Comment on above: Order Comment: Speci men Type: BLOOD SPECIMENOrdering Facility: [facility] Address: [address] [place] [address] Performed By: #### 2 4321-2 ####[facility] [id number] [place] [address] [place] CO2 [Moles/Vol] 22 mmol/L Normal 22-30 [facility] Comment on above: Order Comment: Speci men Type: BLOOD SPECIMENOrdering Facility: [facility] Address: [address] [place] [address] Performed By: #### 2 4321-2 ####[facility] [id number] [place] [address] [place] Creatinine [Mass/Vol] 1.02 mg/dL Normal 0.73-1.22 [facility] Comment on above: Order Comment: Speci men Type: BLOOD SPECIMENOrdering Facility: [facility] Address: [address] [place] [address] Performed By: #### 2 4321-2 ####[facility] [id number] [address] OF [facility] Creatinine and Glomerular filtration rate.predicted panel (S/P/Bld) 101 mL/min/1.73m??? Normal >=60 [facility] Comment on above: Order Comment: Speci men Type: BLOOD SPECIMENOrdering Facility: [facility] Address: [address] [place] [address] Result Comment: Janeth mated Glomerular Filtration Rate (eGFR) is calculated using the 2020 CKD-EPI creatinine equation. This equation utilizes serum creatinine, sex, and age as parameters. The creatinine assay has traceable calibration to isotope dilution-mass spectrometry. Refer to KDIGO guidelines for clinical interpretation. In patients with unstable renal function, e.g. those with acute kidney injury, the eGFR may not accurately reflect actual GFR. Performed By: #### 2 4321-2 ####[facility] RUSSELLWNCLIA [id number] [place] [address] [place] Glucose [Mass/Vol] 230 mg/dL High 74-99 [facility] Comment on above: Order Comment: Speci men Type: BLOOD SPECIMENOrdering Facility: [facility] Address: [address] [place], [place] [id number] Result Comment: The [place] Diabetes [employer] (ADA) provides guidance for cutoff values for fasting glucose and random glucose. The ADA defines fasting as no caloric intake for at least 8 hours. Fasting plasma glucose results between 100 to 125 mg/dL indicate increased risk for diabetes (prediabetes).Fasting plasma glucose results greater than or equal to 126 mg/dL meet the criteria for diagnosis of diabetes. In the absence of unequivocal hyperglycemia, results should be confirmed by repeat testing. In a patient with classic symptoms of hyperglycemia or hyperglycemic crisis, random plasma glucose results greater than or equal to 200 mg/dL meet the criteria for diagnosis of diabetes.Reference: Standards of Medical Care in Diabetes 2016, [place] [employer]. Diabetes Care. 2016.39(Suppl 1). Performed By: #### 2 4321-2 ####[facility] PETERSBURGNCLIA [id number] [place] [address] [place] Potassium [Moles/Vol] 5.6 mmol/L High 3.7-5.1 [facility] Comment on above: Order Comment: Speci men Type: BLOOD SPECIMENOrdering Facility: [facility] Address: [address] [place] [address] Performed By: #### 2 4321-2 ####[facility] PETERSBURGNCLIA [id number] [place] [address] [place] Sodium [Moles/Vol] 134 mmol/L Low 136-144 [facility] Comment on above: Order Comment: Speci men Type: BLOOD SPECIMENOrdering Facility: [facility] Address: [address] [place] [address] Performed By: #### 2 4321-2 ####[facility] PETERSBURGJOAQUÍN [id number] [place] [address] [place] Urea nitrogen [Mass/Vol] 28 mg/dL High 9-24 [facility] Comment on above: Order Comment: Speci men Type: BLOOD SPECIMENOrdering Facility: [facility] Address: [address] [place] [address] Performed By: #### 2 4321-2 ####[facility] PETERSBURGJOAQUÍN [id number] [place] [address] [place] Microorganism Spec Culton Microorganism identified Cx Nom (Unsp spec) CULTURE, FUNGAL: No Fungus isolated after 28 days FUNGAL SMEAR: No fungus seen Normal [facility] Comment on above: Performed By: #### 1 1475-1 ####[facility] LABCLIA [id number] [place] [address] [place] CBC W Auto Differential pane l (Bld)on 03-17-2024 Basophils (Bld) [#/Vol] 0.07 10*3/uL Normal <0.11 [facility] Comment on above: Order Comment: Speci men Type: BLOOD SPECIMENOrdering Facility: [facility] Address: [address] [place] [address] Performed By: #### 5 7021-8 ####[facility] PETERSBURGSPIKEA [id number] [place] [address] [place] Basophils/100 WBC (Bld) 1.2 % Normal [facility] Comment on above: Order Comment: Speci men Type: BLOOD SPECIMENOrdering Facility: [facility] Address: [address] [place] [address] Performed By: #### 5 7021-8 ####[facility] [id number] [place] [address] [place] Differential cell count method Nom (Bld) Auto Normal [facility] Comment on above: Order Comment: Speci men Type: BLOOD SPECIMENOrdering Facility: [facility] Address: [address] [place] [address] Performed By: #### 5 7021-8 ####[facility] [id number] [place] [address] [place] Eosinophils (Bld) [#/Vol] 0.78 10*3/uL High <0.46 [facility] Comment on above: Order Comment: Speci men Type: BLOOD SPECIMENOrdering Facility: [facility] Address: [address] [place] [address] Performed By: #### 5 7021-8 ####[facility] [id number] [place] [address] [place] Eosinophils/100 WBC (Bld) 13.7 % Normal [facility] Comment on above: Order Comment: Speci men Type: BLOOD SPECIMENOrdering Facility: [facility] Address: [address] [place] [address] Performed By: #### 5 7021-8 ####[facility] [id number] [place] [address] [place] Erythrocyte distribution width (RBC) [Ratio] 13.9 % Normal 11.5-15.0 [facility] Comment on above: Order Comment: Speci men Type: BLOOD SPECIMENOrdering Facility: [facility] Address: [address] [place] [address] Performed By: #### 5 7021-8 ####[facility] [id number] [place] [address] [place] Hematocrit (Bld) [Volume fraction] 22.7 % Low 39.0-51.0 [facility] Comment on above: Order Comment: Speci men Type: BLOOD SPECIMENOrdering Facility: [facility] Address: [address] [place] [address] Performed By: #### 5 7021-8 ####[facility] RUSSELLKENDRICKNCJOSEA [id number] [place] [address] [place] Hemoglobin (Bld) [Mass/Vol] 7.4 g/dL Low 13.0-17.0 [facility] Comment on above: Order Comment: Speci men Type: BLOOD SPECIMENOrdering Facility: [facility] Address: [address] [place] [address] Performed By: #### 5 7021-8 ####[facility]ERSBURGNCJORDAN [facility] [id number] [place] [address] [place] Immature granulocytes (Bld) [#/Vol] 10*3/uL Normal <0.10 [facility] Comment on above: Order Comment: Speci men Type: BLOOD SPECIMENOrdering Facility: [facility] Address: [address] [place] [address] Performed By: #### 5 7021-8 ####[facility] PETERSBURGNCLIA [id number] [place] [address] [place] Immature granulocytes/100 WBC (Bld) 0.2 % Normal [facility] Comment on above: Order Comment: Speci men Type: BLOOD SPECIMENOrdering Facility: [facility] Address: [address] [place] [address] Performed By: #### 5 7021-8 ####[facility] PETERSBURGNCLIA [id number] [place] [address] [place] Lymphocytes (Bld) [#/Vol] 1.57 10*3/uL Normal 1.00-4.00 [facility] Comment on above: Order Comment: Speci men Type: BLOOD SPECIMENOrdering Facility: [facility] Address: [address] [place] [address] Performed By: #### 5 7021-8 ####[facility] MILLKENDRICKNCLIA [id number] [place] [address] [place] Lymphocytes/100 WBC (Bld) 27.6 % Normal [facility] Comment on above: Order Comment: Speci men Type: BLOOD SPECIMENOrdering Facility: [facility] Address: [address] [place] [address] Performed By: #### 5 7021-8 ####[facility] PETERSBURGNCLIA [id number] [place] [address] [place] MCH (RBC) [Entitic mass] 28.8 pg Normal 26.0-34.0 [facility] Comment on above: Order Comment: Speci men Type: BLOOD SPECIMENOrdering Facility: [facility] Address: [address] [place] [address] Performed By: #### 5 7021-8 ####[facility]ITAL[facility] [id number] [place] [address] [place] MCHC (RBC) [Mass/Vol] 32.6 g/dL Normal 30.5-36.0 [facility] Comment on above: Order Comment: Speci men Type: BLOOD SPECIMENOrdering Facility: [facility] Address: [address] [place] [address] Performed By: #### 5 7021-8 ####[facility] CENTERLIA [id number] [place] [address] [place] MCV (RBC) [Entitic vol] 88.3 fL Normal 80.0-100.0 [facility] Comment on above: Order Comment: Speci men Type: BLOOD SPECIMENOrdering Facility: [facility] Address: [address] [place] [address] Performed By: #### 5 7021-8 ####[facility] [id number] [place] [address] [place] Monocytes (Bld) [#/Vol] 0.42 10*3/uL Normal <0.87 [facility] Comment on above: Order Comment: Speci men Type: BLOOD SPECIMENOrdering Facility: [facility] Address: [address] [place] [address] Performed By: #### 5 7021-8 ####[facility] IMPERIAL POINTWNCLIA [id number] [place] [address] [place] Monocytes/100 WBC (Bld) 7.4 % Normal [facility] Comment on above: Order Comment: Speci men Type: BLOOD SPECIMENOrdering Facility: [facility] Address: [address] [place] [address] Performed By: #### 5 7021-8 ####[facility] CENTERLIA [id number] [place] [address] [place] Neutrophils (Bld) [#/Vol] 2.83 10*3/uL Normal 1.45-7.50 [facility] Comment on above: Order Comment: Speci men Type: BLOOD SPECIMENOrdering Facility: [facility] Address: [address] [place] [address] Performed By: #### 5 7021-8 ####[facility]BURGNCLIA [id number] [place] [address] [place] Neutrophils/100 WBC (Bld) 49.9 % Normal [facility] Comment on above: Order Comment: Speci men Type: BLOOD SPECIMENOrdering Facility: [facility] Address: [address] [place] [address] Performed By: #### 5 7021-8 ####[facility]BURGNCLIA [id number] [place] [address] [place] Nucleated RBC (Bld) [#/Vol] 10*3/uL Normal <0.01 [facility] Comment on above: Order Comment: Speci men Type: BLOOD SPECIMENOrdering Facility: [facility] Address: [address] [place] [address] Performed By: #### 5 7021-8 ####[facility] RENENCJENNIFFER [id number] [place] [address] [place] Nucleated RBC/100 WBC (Bld) [Ratio] 0.0 /100 WBC Normal [facility] Comment on above: Order Comment: Speci men Type: BLOOD SPECIMENOrdering Facility: [facility] Address: [address] [place] [address] Performed By: #### 5 7021-8 ####[facility] RUSSELLKENDRICKNCLIA [id number] [place] [address] [place] Platelet mean volume (Bld) [Entitic vol] 9.9 fL Normal 9.0-12.7 [facility] Comment on above: Order Comment: Speci men Type: BLOOD SPECIMENOrdering Facility: [facility] Address: [address] [place] [address] Performed By: #### 5 7021-8 ####[facility] PETERSBURGNCLIA [id number] [place] [address] [place] Platelets (Bld) [#/Vol] 147 10*3/uL Low 150-400 [facility] Comment on above: Order Comment: Speci men Type: BLOOD SPECIMENOrdering Facility: [facility] Address: [address] [place] [address] Performed By: #### 5 7021-8 ####[facility]ERSBURGNCLIA [id number] [place] [address] [place] RBC (Bld) [#/Vol] 2.57 10*6/uL Low 4.20-6.00 [facility] Comment on above: Order Comment: Speci men Type: BLOOD SPECIMENOrdering Facility: [facility] Address: [address] [place], [place] [id number] Performed By: #### 5 7021-8 ####[facility] PETERSBURGNCLIA [id number] [place] [address] [place] WBC (Bld) [#/Vol] 5.68 10*3/uL Normal 3.70-11.00 [facility] Comment on above: Order Comment: Speci men Type: BLOOD SPECIMENOrdering Facility: [facility] Address: [address] [place] [address] Performed By: #### 5 7021-8 ####[facility] PETERSBURGNCA [id number] [place] [address] [facility] [place] CELIAC ASSOC HLA-DQ GENOTYPE on 03-17-2024 CELIAC CATEGORY Category 0 Normal [facility] Comment on above: Order Comment: Speci men Type: BLOOD SPECIMENOrdering Facility: [facility] Address: [address] [place] [address] Result Comment: OLIVER SIGALA DQ HAPLOTYPE RELATIVE RISKCategory 7 DQ2.2 AND DQ2.5 Extremely HighCategory 7 DQ2.5 AND DQ2.5 Extremely HighCategory 6 DQ2.2 AND DQA1*05, DQB1*03:01 Very HighCategory 5 DQ2.2 AND DQ8 Very HighCategory 5 DQ2.5 AND DQ8 Very HighCategory 4 DQ8 AND DQ8 HighCategory 3 DQ2.5 AND DQA1*05, DQB1*03:01 HighCategory 3 DQ2.5 AND DQA1*02:01, DQB1*03:03 HighCategory 3 DQ2.5 AND DQA1*03, DQB1*02 HighCategory 3 DQ2.5 AND OTHER LOW RISK ALLELE HighCategory 3 DQ2.2 AND DQA1*05, DQB1*03:03 HighCategory 2 DQ8 AND OTHER LOW RISK ALLELE ModerateCategory 1 DQ2.2 AND OTHER LOW RISK ALLELE LowCategory 0 NEGATIVE FOR DQ2.2 NegativeCategory 0 NEGATIVE FOR DQ2.5 NegativeCategory 0 NEGATIVE FOR DQ8 NegativeDQ2.2 = DQA1*02:01, DQB1*02:02DQ2.5 = DQA1*05, DQB1*02:01DQ8 = DQA1*03, DQB1*03:02The identification of one of these HLA-DQ genotypes is not, by itself, sufficient for the diagnosis of celiac disease, since both DQ2 and DQ8 are relatively common in the general population. The strongest reported HLA associations with celiac disease include DQ2 (DQ2.5 or DQA1*05-DQB1*02:01 & DQA2.2 or DQA1*02:01-DQB1*02:02) and DQ8 (DQA1*03:01/DQB1*03:02). This test is useful for family members of celiac patients and patients with negative serology results. This testing can rule out celiac disease with high negative predictive value (NPV) of 95-100% depending on the ethnic background.In cases of an ambiguous HLA allele assignment where multiple rare alleles cannot be excluded, the most common HLA allele is reported.References: 1. Michelle L, Alysia J, Walter K, et al. Cost-effective HLA typing with tagging SNPs predicts celiac disease risk haplotypes in the [place], [place] and [place] populations. Immunogenetics. 2009 Mar;61(4):247-56. 2. Delfino COWAN. Celiac disease: dissecting a complex inflammatory disorder. Nancy Rev Immunol. 2002 Aug;2(9):647-55. 3. Elder E, Quintin HS, El CA, et al. Risk of pediatric celiac disease according to HLA haplotype and country. N Engl J Med. 2014 ;371(1):42-9.HLA typing performed by PCR-RSSOP and/or NGS.This test was developed and its performance characteristics determined by [employer]. The test has not been cleared or approved by the [place] FDA. However, FDA approval was not necessary since this lab is certified under CLIA for high complexity testing.Test performed by: [facility], [address] [place] [address]. CLIA [id number]. Performed By: #### C GENNA ####[employer] for GoodCLIA [id number] [email or web address] [address] CELIAC RISK HAPLOTYPE Negative Normal [facility] Comment on above: Order Comment: Speci men Type: BLOOD SPECIMENOrdering Facility: [facility] Address: [address] [place] [address] Performed By: #### C GENNA ####[facility] LABORATORIESCLIA [id number] [place] [address] [place] HLA-DQA1 GENOTYPE HLA-DQA1*: 05, 05 Normal [facility] Comment on above: Order Comment: Speci men Type: BLOOD SPECIMENOrdering Facility: [facility] Address: [address] [place] [address] Performed By: #### C GENNA ####[facility] LABORATORIESCLIA [id number] [address] [place] HLA-DQB1 GENOTYPE HLA-DQB1*: 03:01, 03:01 Normal [facility] Comment on above: Order Comment: Speci [facility] Type: BLOOD SPECIMENOrdering Facility: [facility] Address: [address] [place] [address] Performed By: #### C GENNA ####[facility] LABORATORIESCLIA [id number] [place] [address] [facility] [place] CELIAC SCREENon 03-17-2024 GLIAD DEAMIDATED IGA QUAL Negative Normal Negative, Test not Indicated [facility] Comment on above: Order Comment: Speci [facility] Type: BLOOD SPECIMENOrdering Facility: [facility] Address: [address] [place] [address] Result Comment: This is used as an aid in diagnosis of celiac disease. Clinical correlation is required.The following results were obtained with an [employer] QUANTA Lite Gliadin IgA KEVIN Gliadin. Gliadin IgA values obtained with different manufacturers' assay methods may not be used interchangeably. The magnitude of the reported IgA levels cannot be correlated to an endpoint titer. Performed By: #### L [id number] ####[facility] LABCLIA [id number] [place] [address] [place] Gliadin peptide IgA Qn (S) 2 Units Normal <20 [facility] Comment on above: Order Comment: Paruli men Type: BLOOD SPECIMENOrdering Facility: [facility] Address: [address] [place] [address] Performed By: #### L [id number] ####[facility] LABCLIA [id number] [place] [id number] [place] INTERPRETATION No serological evide nce of celiac disease, however, if celiac disease is clinically suspected and patient is not on gluten-free diet, histological diagnosis may be considered. HLA testing may help with risk assessment. Normal [facility] Comment on above: Order Comment: [facility] Type: BLOOD SPECIMENOrdering Facility: [facility] Address: [address] [place] [address] Performed By: #### L [id number] ####[facility] LABCLIA [id number] [address] [place] TRANSGLUTAMINASE IGA ABS INTERPRETATION Negative Normal Negative [facility] Comment on above: Order Comment: Kanu [facility] Type: BLOOD SPECIMENOrdering Facility: [facility] Address: [address] [place] [address] Result Comment: The following results were obtained with [employer] Lite R h-tTG IgA KEVIN.???R h-tTG IgA values obtained with different manufacturers' assay methods may not be used interchangeably. The magnitude of the reported IgA levels cannot be corelated to an endpoint???concentration.This is used as an aid in diagnosis of celiac disease. Clinical correlation is required. Performed By: #### L [id number] ####[facility] LABCLIA [id number] [place] [address] [place] tTG IgA Qn (S) <2 Normal <4 [facility] Comment on above: Order Comment: Kanu [facility] Type: BLOOD SPECIMENOrdering Facility: [facility] Address: [address] [place] [address] Performed By: #### L [id number] ####[facility] LABCLIA [id number] [id number] [address] [place] Comprehensive metabolic 2000 panelon 03-17-2024 Albumin [Mass/Vol] 2.9 g/dL Low 3.9-4.9 [facility] Comment on above: Order Comment: Speci men Type: BLOOD SPECIMENOrdering Facility: [facility] Address: [address] [place] [address] Performed By: #### 1 9123-9, 2777-1, 67740-2 ####[facility] MILLTOWZAKILIA [id number] [place] [address] [place] ALP [Catalytic activity/Vol] 685 U/L High 38-113 [facility] Comment on above: Order Comment: Speci men Type: BLOOD SPECIMENOrdering Facility: [facility] Address: [address] [place] [address] Performed By: #### 1 9123-9, 2777-1, 99011-3 ####[facility] MILLWZAKILIA [id number] [place] [address] [place] ALT [Catalytic activity/Vol] 51 U/L Normal 10-54 [facility] Comment on above: Order Comment: Speci men Type: BLOOD SPECIMENOrdering Facility: [facility] Address: [address] [place] [address] Performed By: #### 1 9123-9, 2777-1, 02011-5 ####[facility] MILLTOWZAKILIA [id number] [place] [address] [place] Anion gap [Moles/Vol] 4 mmol/L Low 9-18 [facility] Comment on above: Order Comment: Speci men Type: BLOOD SPECIMENOrdering Facility: [facility] Address: [address] [place] [address] Performed By: #### 1 9123-9, 2777-1, 05304-5 ####[facility] MILLTOWNCLIA [id number] [place] [address] [place] AST [Catalytic activity/Vol] 70 U/L High 14-40 [facility] Comment on above: Order Comment: Speci men Type: BLOOD SPECIMENOrdering Facility: [facility] Address: [address] [place] [address] Performed By: #### 1 9123-9, 2777-1, 95003-0 ####[facility] RUSSELLBETSY [id number] [place] [address] [place] Bilirubin [Mass/Vol] 1.0 mg/dL Normal 0.2-1.3 [facility] Comment on above: Order Comment: Speci men Type: BLOOD SPECIMENOrdering Facility: [facility] Address: [address] [place] [address] Performed By: #### 1 9123-9, 2777-, 02590-2 ####[facility] PETERSBURGSPIKEA [id number] [place] [address] [place] Calcium [Mass/Vol] 8.9 mg/dL Normal 8.5-10.2 [facility] Comment on above: Order Comment: Speci men Type: BLOOD SPECIMENOrdering Facility: [facility] Address: [address] [place] [address] Performed By: #### 1 9123-9, 2777-, 19977-8 ####[facility] CENTERJOSEA [id number] [place] [address] [place] Chloride [Moles/Vol] 107 mmol/L High 97-105 [facility] Comment on above: Order Comment: Speci men Type: BLOOD SPECIMENOrdering Facility: [facility] Address: [address] [place] [address] Performed By: #### 1 9123-9, 2777-1, 80506-7 ####[facility] PETERSBURGNCLIA [id number] [place] [address] [place] CO2 [Moles/Vol] 22 mmol/L Normal 22-30 [facility] Comment on above: Order Comment: Kanu sainz Type: BLOOD SPECIMENOrdering Facility: [facility] Address: [address] [place] [address] Performed By: #### 1 9123-9, 2777, 34996-6 ####[facility] CENTERLIA [id number] [place] [address] [place] Creatinine [Mass/Vol] 1.06 mg/dL Normal 0.73-1.22 [facility] Comment on above: Order Comment: Paruli alistair Type: BLOOD SPECIMENOrdering Facility: [facility] Address: [address] [place] [address] Performed By: #### 1 9123-9, 27705-31, ####[facility] PETERSBURGNCA [id number] [place] [address] [place] Creatinine and Glomerular filtration rate.predicted panel (S/P/Bld) 97 mL/min/1.73m??? Normal >=60 [facility] Comment on above: Order Comment: Kanu sainz Type: BLOOD SPECIMENOrdering Facility: [facility] Address: [address] [place] [address] Result Comment: Janeth mated Glomerular Filtration Rate (eGFR) is calculated using the 2020 CKD-EPI creatinine equation. This equation utilizes serum creatinine, sex, and age as parameters. The creatinine assay has traceable calibration to isotope dilution-mass spectrometry. Refer to KDIGO guidelines for clinical interpretation. In patients with unstable renal function, e.g. those with acute kidney injury, the eGFR may not accurately reflect actual GFR. Performed By: #### 1 9123-9, 27705-31, ####[facility] IMPERIAL POINTWNCLIA [id number] [place] [address] [place] Glucose [Mass/Vol] 81 mg/dL Normal 74-99 [facility] Comment on above: Order Comment: Speci men Type: BLOOD SPECIMENOrdering Facility: [facility] Address: [address] [place] [address] Result Comment: The [place] [employer] (ADA) provides guidance for cutoff values for fasting glucose and random glucose. The ADA defines fasting as no caloric intake for at least 8 hours. Fasting plasma glucose results between 100 to 125 mg/dL indicate increased risk for diabetes (prediabetes).Fasting plasma glucose results greater than or equal to 126 mg/dL meet the criteria for diagnosis of diabetes. In the absence of unequivocal hyperglycemia, results should be confirmed by repeat testing. In a patient with classic symptoms of hyperglycemia or hyperglycemic crisis, random plasma glucose results greater than or equal to 200 mg/dL meet the criteria for diagnosis of diabetes.Reference: Standards of Medical Care in Diabetes 2016, [place] [employer]. Diabetes Care. 2016.39(Suppl 1). Performed By: #### 1 9123-9, 2777-, 78430-2 ####[facility] PETERSBURGJOAQUÍN [id number] [place] [address] [place] Potassium [Moles/Vol] 4.6 mmol/L Normal 3.7-5.1 [facility] Comment on above: Order Comment: Kanu sainz Type: BLOOD SPECIMENOrdering Facility: [facility] Address: [address] [place] [address] Performed By: #### 1 9123-9, 2777, 02553-5 ####[facility] PETERSBURGJOAQUÍN [id number] [place] [address] [place] Protein [Mass/Vol] 8.0 g/dL Normal 6.3-8.0 [facility] Comment on above: Order Comment: Kanu sainz Type: BLOOD SPECIMENOrdering Facility: [facility] Address: [address] [place], [place] [address] Performed By: #### 1 9123-9, 2777-, 05568-8 ####[facility] PETERSBURGNCLIA [id number] [place] [address] [place] Sodium [Moles/Vol] 133 mmol/L Low 136-144 [facility] Comment on above: Order Comment: Speci men Type: BLOOD SPECIMENOrdering Facility: [facility] Address: [address] [place] [address] Performed By: #### 1 9123-9, 2777-1, 27542-4 ####[facility] MILLTOWNCLIA [id number] [place] [address] [place] Urea nitrogen [Mass/Vol] 29 mg/dL High 9-24 [facility] Comment on above: Order Comment: Speci men Type: BLOOD SPECIMENOrdering Facility: [facility] Address: [address] [place] [address] Performed By: #### 1 9123-9, 2777-1, 28716-4 ####[facility] PETERSBURGNCLIA [id number] [place] [address] [place] IgA SerPl-mCncon 03-17-2024 IgA [Mass/Vol] 87 mg/dL Normal 70-400 [facility] Comment on above: Order Comment: Speci men Type: BLOOD SPECIMENOrdering Facility: [facility] Address: [address] [place] [address] Performed By: #### 2 458-8 ####[facility] LABCLIA [id number] [place] [address] [place] Lipid 1996 panelon 4 Cholesterol [Mass/Vol] 147 mg/dL Normal <200 [facility] Comment on above: Order Comment: Speci men Type: BLOOD SPECIMENOrdering Facility: [facility] Address: [address] [place] [address] Result Comment: <200 mg/dL, Desirable 200-239 mg/dL, Borderline high>239 mg/dL, High Performed By: #### 2 4331-1 ####[facility] LABCLIA [id number] [place] [address] [place] [facility] [id number] [place] [address] [place] Cholesterol in HDL [Mass/Vol] 72 mg/dL Normal >39 [facility] Comment on above: Order Comment: Speci men Type: BLOOD SPECIMENOrdering Facility: [facility] Address: [address] [place] [address] Result Comment: 40-5 9 mg/dL, Acceptable>59 mg/dL, High: Negative risk factor for coronary heart disease<40 mg/dL, Low: Positive risk factor for coronary heart disease Performed By: #### 2 4331-1 ####[facility] LABCLIA [id number] [address] [id number] [place] [address] [place] Cholesterol in LDL [Mass/Vol] 64 mg/dL Normal <100 [facility] Comment on above: Order Comment: Speci men Type: BLOOD SPECIMENOrdering Facility: [facility] Address: [address] [place] [address] Result Comment: <100 mg/dL, Optimal 100-129 mg/dL, Near optimal/above optimal 130-159 mg/dL, Borderline high 160-189 mg/dL, High>189 mg/dL, Very highSecondary prevention optimal LDL Cholesterol levels are recommended to be < 70 mg/dL Performed By: #### 2 4331-1 ####[facility] LABCLIA [id number] [address] [id number] [place] [address] [place] Cholesterol in LDL/Cholesterol in HDL [Mass ratio] 0.89 {ratio} Normal <2.54 [facility] Comment on above: Order Comment: Speci men Type: BLOOD SPECIMENOrdering Facility: [facility] Address: [address] [place] [address] Result Comment: Refe rence:1. National Cholesterol Education Program ATP III Guideline At-A-Glance Quick Desk Reference: National Heart, Lung, and Blood [place]. National Institutes of Health. 2001: NIH Publication No. 01-3305.2. An International Atherosclerosis Society position paper: global recommendations for the management of dyslipidemia: executive summary, Atherosclerosis. 2014: 232(2):410-413. Performed By: #### 2 4331-1 ####[facility] LABCLIA [id number] [address] [id number] [place] [address] [place] Cholesterol in VLDL [Mass/Vol] 11 mg/dL Normal <30 [facility] Comment on above: Order Comment: Speci men Type: BLOOD SPECIMENOrdering Facility: [facility] Address: [address] [place] [address] Performed By: #### 2 4331-1 ####[facility] LABCLIA [id number] [address] [id number] [address] [place] Cholesterol non HDL [Mass/Vol] 75 mg/dL Normal <130 [facility] Comment on above: Order Comment: Speci men Type: BLOOD SPECIMENOrdering Facility: [facility] Address: [address] [place] [address] Result Comment: <130 mg/dL, Optimal 130-159 mg/dL, Near optimal/above optimal 160-189 mg/dL, Borderline high 190-219 mg/dL, High>219 mg/dL, Very highSecondary prevention optimal non HDL Cholesterol levels are recommended to be <100 mg/dL Performed By: #### 2 4331-1 ####[facility] LABCLIA [id number] [address] [id number] [place] [address] [place] Cholesterol.total/Cho lesterol in HDL [Mass ratio] 2.04 {ratio} Normal <5.10 [facility] Comment on above: Order Comment: Speci men Type: BLOOD SPECIMENOrdering Facility: [facility] Address: [address] [place], [place] [address] Performed By: #### 2 4331-1 ####[facility] LABCLIA [id number] [address] [id number] [place] [address] [place] FASTING TIME 12 hrs Normal [facility] Comment on above: Order Comment: Speci men Type: BLOOD SPECIMENOrdering Facility: [facility] Address: [address] [place] [address] Performed By: #### 2 4331-1 ####[facility] LABCLIA [id number] [address] [id number] [place] [address] [place] Triglyceride [Mass/Vol] 54 mg/dL Normal <150 [facility] Comment on above: Order Comment: Speci men Type: BLOOD SPECIMENOrdering Facility: [facility] Address: [address] [place] [address] Result Comment: <150 mg/dL, Normal 150-199 mg/dL, Borderline high 200-499 mg/dL, High>499 mg/dL, Very high Performed By: #### 2 4331-1 ####[facility] LABIA [id number] [address] [id number] [place] [address] [place] Magnesium SerPl-mCncon 03-17 Magnesium [Mass/Vol] 1.9 mg/dL Normal 1.7-2.3 [facility] Comment on above: Order Comment: Speci men Type: BLOOD SPECIMENOrdering Facility: [facility] Address: [address] [place] [address] Performed By: #### 1 9123-9, 2777-1, 14098-0 ####[facility] CENTERLIA [id number] [place] [address] [place] [facility] [place] Phosphate SerPl-mCncon 03-17 Phosphate [Mass/Vol] 4.8 mg/dL Normal 2.7-4.8 [facility] Comment on above: Order Comment: Speci alistair Type: BLOOD SPECIMENOrdering Facility: [facility] Address: [address] [place] [address] Performed By: #### 1 9123-9, 2777-1, 32545-5 ####[facility] CENTERLIA [id number] [address] OF [place] CNOVon 03-09-2024 CNOV Office Visit (ENAGST ) JAY BARBER ([id number]) 1995 Date Time Provider Department 03/09/24 2:00 PM STEPHIE RAMIREZ During your visit today, we recorded the following information about you: Blood pressure Weight Height 128/76 41 kg 1.575 m Stephie Ramirez APRN.ACQUISITION ANALYST 03/09/2024 4:10 PM Signed Subjective Date of encounter: 03/09/2024 Jayrichard Barber (1995), is a 28 year old male who presents for Diabetes management Important Lab History: HBA1C:10/2013: 10.8%, 12/2013: 7.4%, 03/2014: 9.6%, 03/2014: 8.1%, 05/2014: 6.7%, 05/2015: 6.9%, 08/2015: 8.4%, 12/2015: HbA1c 8.3%, 03/2016: 8.9%, 05/2016: 7.0%, 01/2018: 9.6%, 05/2018: 10.3%, 08/2018: 8.2%, 10/2018: 7.9%, 01/2019: 8.1%, 03/2019: 6.6%, 07/2019: 6.5%, 12/2019: 6.9%, 07/2020: 6.6%, 08/2020: 6.4%, 01/2021: HbA1C 8.3%, 03/2021: 8.3%, 05/2021: 7.4%, 08/2021: 7.4%, 12/2021: 7.5%, 07/2022: 8.6%, 10/2022: 8.4%, 03/2023: 7.7%, 07/2023: 6.9%, 10/2023: 6.4%, 01/2024: 6.3%, 03/2024: 6.1%, Thyroid Function Testin10/2013: TSH 2.29 (0.358-3.740), free T4 1.02 (0.76-1.46), 12/2015: TSH 1.970 (0.358-3.740 uIU/mL), free T4 1.15 (0.76-1.46 ng/dL), 01/2018: TSH 1.735 (0.35-5.5), 12/2018: TSH 1.137 (0.35-5.5), 05/2019: TSH 2.293 (0.35-5.5), 01/2020: TSH 1.754 (0.35-5.5), free T4 1.2 (0.9-1.5), 01/2021: TSH 1.9 (0.27-4.2 uIU/mL), free T4 1.2 (0.9-1.7), 12/2021: TSH 3.41 (0.27-4.2 uIU/mL), free T4 1.1 (0.9-1.7), 07/2023: TSH 2.35 (0.27-4.2 uIU/mL), Renal Function Testin08/2013: creatinine 0.7, 12/2015: creatinine 0.69 mg/dL, eGFR >60,), 05/2018: Creatinine 0.72, 01/2019: Creatinine 0.86, 07/2019: Creatinine 0.73, 07/2020: Creatinine 0.65, 10/2020: Creatinine 0.64, 01/2021: Creatinine 0.81, 03/2021: Creatinine 0.73, 12/2021: Creatinine 0.64, 12/2022: Creatinine 0.78, 03/2023: Creatinine 0.83, 08/2023: Creatinine 1.13 eGFR 90, 10/2023: Creatinine 1.04, 03/2024: Creatinine 1.37 eGFR 71 Urine for Microalbumin:10/2013: Microalbumin:Creatinine ratio ok,12/2015: microalbumin : creatinine ratio ok, 08/2017: Microalbumin:Creatinine Ratio ok, 10/2018: Microalbumin:Creatinine Ratio 535, 01/03/2020: Microalbumin:Creatinine Ratio 650, 01/2021: Microalbumin:Creatinine Ratio 361. Improved but above goal. Jay states he has used lisinopril in the past but this increased his potassium too much and it was discontinued. He will inquire further with his CF providers about losartan. I advised him to make an appointment with nephrology as we had previously discussed., 03/19/2021: Microalbumin:Creatinine Ratio 1220, 08/2021: still hasn't made appointment with kidney specialist, stressed the importance of this to prevent further kidney damage., 10/2022: prot/creat ratio in epic, making appointment with nephrology, 07/2023: prot/creat ratio in epic Lipid Profile:10/2013: TC 111, HDL 42, LDL 56, TG 56, 12/2015: TC 122, HDL 52, LDL 60, TG 49, 10/2018: TC 160, HDL 72, LDL 71, TG 83, 01/03/2020: TC 253 HDL 133 LDL 112 TG 38, 01/2021: TC 179 HDL 115 LDL 54 TG 51, 03/2021: TC 233 HDL 143 LDL 84 TG 32 Liver Profile:08/2013: AST 93, ALT 65, Alkaline Phosphatase 811, 12/2015: AST 110 (9-37 U/L), ALT 164 (12-78 U/L), alkaline phosphatase 807 (46-116 U/L), Bilirubin, total 1.3 (0.2-1.0, mg/dL, 05/2018: results in care everywhere, 12/2019: results in care everywhere, 01/2020: labs in [facility], 07/2020; Alkaline Phosphatase 725 (45-117), ALT 77 (16-61), AST 163 (15-37), 12/2020: results in care everywhere., 03/2021: results In care everywhere, 12/2021: Alkaline Phosphatase 918 (38-113), bone percent 13.9%, liver percent 86.1 , 12/2022: liver function monitored by CF providers, 03/2023: in [facility], 08/2023: LFTS in [facility], 10/2023: LFTS in [facility], 03/2024: liver test in [facility] Dilated Eye Exam: Patient educated to have ophthalmology visits at least once a year. 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 08/2013: New patient visit for Cystic Fibrosis related Diabetes Previous diabetes related labs from [facility] and [facility] systems reviewed prior to today's office visit. Any changes made at our last diabetes management visit were abstracted accordingly (if applicable). Today's Office Visit: Jaydon Dennis: reminded patient to make appointment with for osteoporosis again 03/2024 Nephrology: following Hepatology: following. Hematology: had appointment per patient. Lipids: advised to discuss with CF providers, may not be able to treat with high liver enzymes. Endocrinology: we manage patients CFRD only. self monitoring blood glucose data : see dexcom report. Average 14 day SG 205 predicted gmi n/a%, 44% TIR 2% low range. Reviewed to calibrate more often, review how/when to calibrate and to use physical BG for treatment decisions if ever doubting sensor accuracy. Recently dc'd from hospital, diet has been returning. Diet: can be high in carbs per patient due (more content not included)... Normal [facility] HEMOGLOBIN A1C (POC)on 03-09 HbA1c (Bld) [Mass fraction] 6.1 % Abnormal 4.3 - 5.6 % [facility] CBC W Auto Differential pane l (Bld)on 03-05-2024 Basophils (Bld) [#/Vol] 0.12 10*3/uL High <0.11 [facility] Comment on above: Order Comment: Speci men Type: BLOOD SPECIMENOrdering Facility: [facility] Address: [address] [place] [address] Performed By: #### 5 7021-8 ####[facility] MILLTOWNCLIA [id number] [place] [address] [place] Basophils/100 WBC (Bld) 2.0 % Normal [facility] Comment on above: Order Comment: Speci men Type: BLOOD SPECIMENOrdering Facility: [facility] Address: [address] [place] [address] Performed By: #### 5 7021-8 ####[facility] CENTERLIA [id number] [place] [address] [place] Differential cell count method Nom (Bld) Auto Normal [facility] Comment on above: Order Comment: Speci men Type: BLOOD SPECIMENOrdering Facility: [facility] Address: [address] [place] [address] Performed By: #### 5 7021-8 ####[facility] MILLWNCLIA [id number] [place] [address] [place] Eosinophils (Bld) [#/Vol] 1.24 10*3/uL High <0.46 [facility] Comment on above: Order Comment: Speci men Type: BLOOD SPECIMENOrdering Facility: [facility] Address: [address] [place] [address] Performed By: #### 5 7021-8 ####[facility] MILLWNCLIA [id number] [place] [address] [place] Eosinophils/100 WBC (Bld) 20.5 % Normal [facility] Comment on above: Order Comment: Speci men Type: BLOOD SPECIMENOrdering Facility: [facility] Address: [address] [place] [address] Performed By: #### 5 7021-8 ####[facility] [id number] [place] [address] [place] Erythrocyte distribution width (RBC) [Ratio] 13.4 % Normal 11.5-15.0 [facility] Comment on above: Order Comment: Speci men Type: BLOOD SPECIMENOrdering Facility: [facility] Address: [address] [place] [address] Performed By: #### 5 7021-8 ####[facility] [id number] [place] [address] [place] Hematocrit (Bld) [Volume fraction] 25.8 % Low 39.0-51.0 [facility] Comment on above: Order Comment: Speci men Type: BLOOD SPECIMENOrdering Facility: [facility] Address: [address] [place] [address] Performed By: #### 5 7021-8 ####[facility] [id number] [place] [address] [place] Hemoglobin (Bld) [Mass/Vol] 8.4 g/dL Low 13.0-17.0 [facility] Comment on above: Order Comment: Speci men Type: BLOOD SPECIMENOrdering Facility: [facility] Address: [address] [place] [address] Performed By: #### 5 7021-8 ####[facility] [id number] [place] [address] [place] Immature granulocytes (Bld) [#/Vol] 10*3/uL Normal <0.10 [facility] Comment on above: Order Comment: Speci men Type: BLOOD SPECIMENOrdering Facility: [facility] Address: [address] [place] [address] Performed By: #### 5 7021-8 ####[facility] IMP[facility] POINTBETSY [id number] [place] [address] [place] Immature granulocytes/100 WBC (Bld) 0.2 % Normal [facility] Comment on above: Order Comment: Speci men Type: BLOOD SPECIMENOrdering Facility: [facility] Address: [address] [place] [address] Performed By: #### 5 7021-8 ####[facility]BURGNCJORD[facility] [id number] [place] [address] [place] Lymphocytes (Bld) [#/Vol] 1.42 10*3/uL Normal 1.00-4.00 [facility] Comment on above: Order Comment: Speci men Type: BLOOD SPECIMENOrdering Facility: [facility] Address: [address] [place] [address] Performed By: #### 5 7021-8 ####[facility] [id number] [place] [address] [place] Lymphocytes/100 WBC (Bld) 23.5 % Normal [facility] Comment on above: Order Comment: Speci men Type: BLOOD SPECIMENOrdering Facility: [facility] Address: [address] [place] [address] Performed By: #### 5 7021-8 ####[facility] CENTERLI [id number] [place] [address] [place] MCH (RBC) [Entitic mass] 29.2 pg Normal 26.0-34.0 [facility] Comment on above: Order Comment: Speci men Type: BLOOD SPECIMENOrdering Facility: [facility] Address: [address] [place] [address] Performed By: #### 5 7021-8 ####[facility]BURGNCLIA [id number] [place] [address] [place] MCHC (RBC) [Mass/Vol] 32.6 g/dL Normal 30.5-36.0 [facility] Comment on above: Order Comment: Speci men Type: BLOOD SPECIMENOrdering Facility: [facility] Address: [address] [place] [address] Performed By: #### 5 7021-8 ####[facility] [id number] [place] [address] [place] MCV (RBC) [Entitic vol] 89.6 fL Normal 80.0-100.0 [facility] Comment on above: Order Comment: Speci men Type: BLOOD SPECIMENOrdering Facility: [facility] Address: [address] [place] [address] Performed By: #### 5 7021-8 ####[facility] [id number] [place] [address] [place] Monocytes (Bld) [#/Vol] 0.56 10*3/uL Normal <0.87 [facility] Comment on above: Order Comment: Speci men Type: BLOOD SPECIMENOrdering Facility: [facility] Address: [address] [place] [address] Performed By: #### 5 7021-8 ####[facility] [id number] [place] [address] [place] Monocytes/100 WBC (Bld) 9.3 % Normal [facility] Comment on above: Order Comment: Speci men Type: BLOOD SPECIMENOrdering Facility: [facility] Address: [address] [place] [address] Performed By: #### 5 7021-8 ####[facility]ERSBURGNCLIA [id number] [place] [address] [place] Neutrophils (Bld) [#/Vol] 2.70 10*3/uL Normal 1.45-7.50 [facility] Comment on above: Order Comment: Speci men Type: BLOOD SPECIMENOrdering Facility: [facility] Address: [address] [place] [address] Performed By: #### 5 7021-8 ####[facility] [id number] [place] [address] [place] Neutrophils/100 WBC (Bld) 44.5 % Normal [facility] Comment on above: Order Comment: Speci men Type: BLOOD SPECIMENOrdering Facility: [facility] Address: [address] [place] [address] Performed By: #### 5 7021-8 ####[facility]BURGNCJORD[facility] [id number] [place] [address] [place] Nucleated RBC (Bld) [#/Vol] 10*3/uL Normal <0.01 [facility] Comment on above: Order Comment: Speci men Type: BLOOD SPECIMENOrdering Facility: [facility] Address: [address] [place] [address] Performed By: #### 5 7021-8 ####[facility] [id number] [place] [address] [place] Nucleated RBC/100 WBC (Bld) [Ratio] 0.0 /100 WBC Normal [facility] Comment on above: Order Comment: Speci men Type: BLOOD SPECIMENOrdering Facility: [facility] Address: [address] [place] [address] Performed By: #### 5 7021-8 ####[facility] PETERSBURGNCA [id number] [place] [address] [place] Platelet mean volume (Bld) [Entitic vol] 9.9 fL Normal 9.0-12.7 [facility] Comment on above: Order Comment: Speci men Type: BLOOD SPECIMENOrdering Facility: [facility] Address: [address] [place] [address] Performed By: #### 5 7021-8 ####[facility] RENENCJOSEA [id number] [place] [address] [place] Platelets (Bld) [#/Vol] 259 10*3/uL Normal 150-400 [facility] Comment on above: Order Comment: Speci men Type: BLOOD SPECIMENOrdering Facility: [facility] Address: [address] [place] [address] Performed By: #### 5 7021-8 ####[facility] RUSSELLKENDRICKNCLIA [id number] [place] [address] [place] RBC (Bld) [#/Vol] 2.88 10*6/uL Low 4.20-6.00 [facility] Comment on above: Order Comment: Speci men Type: BLOOD SPECIMENOrdering Facility: [facility] Address: [address] [place] [address] Performed By: #### 5 7021-8 ####[facility] RUSSELLKENDRICKNCJOSEA [id number] [place] [address] [place] WBC (Bld) [#/Vol] 6.05 10*3/uL Normal 3.70-11.00 [facility] Comment on above: Order Comment: Speci men Type: BLOOD SPECIMENOrdering Facility: [facility] Address: [address] [place] [address] Performed By: #### 5 7021-8 ####[facility] PETERSBURGNCLIA [id number] [place] [address] [place] CRP SerPl-mCncon 03-05-2024 CRP [Mass/Vol] mg/L Normal <0.9 [facility] Comment on above: Order Comment: Speci men Type: BLOOD SPECIMENOrdering Facility: [facility] Address: [address] [place] [address] Performed By: #### 1 988-5 ####[facility] LABCLIA [id number] [facility] HOSPITALZoie [facility] [id number] [place], [place] [id number] [place] Comprehensive metabolic 2000 panelon 03-05-2024 Albumin [Mass/Vol] 2.8 g/dL Low 3.9-4.9 [facility] Comment on above: Order Comment: Speci men Type: BLOOD SPECIMENOrdering Facility: [facility] Address: [address] [place] [address] Performed By: #### 2 4323-8 ####[facility] MILLTOWNCLIA [id number] [place] [address] [place] ALP [Catalytic activity/Vol] 807 U/L High 38-113 [facility] Comment on above: Order Comment: Speci men Type: BLOOD SPECIMENOrdering Facility: [facility] Address: [address] [place] [address] Performed By: #### 2 4323-8 ####[facility] MILLTOWNCLIA [id number] [place] [address] [place] ALT [Catalytic activity/Vol] 54 U/L Normal 10-54 [facility] Comment on above: Order Comment: Speci men Type: BLOOD SPECIMENOrdering Facility: [facility] Address: [address] [place] [address] Performed By: #### 2 4323-8 ####[facility] MILLTOWNCLIA [id number] [place] [address] [place] Anion gap [Moles/Vol] 6 mmol/L Low 9-18 [facility] Comment on above: Order Comment: Speci men Type: BLOOD SPECIMENOrdering Facility: [facility] Address: [address] [place] [address] Performed By: #### 2 4323-8 ####[facility] MILLTOWNCLIA [id number] [place] [address] [place] AST [Catalytic activity/Vol] 71 U/L High 14-40 [facility] Comment on above: Order Comment: Speci men Type: BLOOD SPECIMENOrdering Facility: [facility] Address: [address] [place] [address] Performed By: #### 2 4323-8 ####[facility] MAXWELLGRACE COTTAGE HOSPITALWNCLIA [id number] [place] [address] [place] Bilirubin [Mass/Vol] 1.0 mg/dL Normal 0.2-1.3 [facility] Comment on above: Order Comment: Speci men Type: BLOOD SPECIMENOrdering Facility: [facility] Address: [address] [place] [address] Performed By: #### 2 4323-8 ####[facility] IMPERIAL POINTWNCLIA [id number] [place] [address] [place] Calcium [Mass/Vol] 9.3 mg/dL Normal 8.5-10.2 [facility] Comment on above: Order Comment: Speci men Type: BLOOD SPECIMENOrdering Facility: [facility] [facility] Address: [address] [place] [address] Performed By: #### 2 4323-8 ####[facility] IMPERIAL POINTWNCLIA [id number] [place] [address] [place] Chloride [Moles/Vol] 99 mmol/L Normal 97-105 [facility] Comment on above: Order Comment: Speci men Type: BLOOD SPECIMENOrdering Facility: [facility] Address: [address] [place] [address] Performed By: #### 2 4323-8 ####[facility] MILLTOWNCLIA [id number] [place] [address] [place] CO2 [Moles/Vol] 24 mmol/L Normal 22-30 [facility] Comment on above: Order Comment: Speci men Type: BLOOD SPECIMENOrdering Facility: [facility] Address: [address] [place] [address] Performed By: #### 2 4323-8 ####[facility] RENENCJENNIFFER [id number] [place] [address] [place] Creatinine [Mass/Vol] 1.37 mg/dL High 0.73-1.22 [facility] Comment on above: Order Comment: Speci men Type: BLOOD SPECIMENOrdering Facility: [facility] Address: [address] [place] [address] Performed By: #### 2 4323-8 ####[facility] PETERSBURGNCJENNIFFER [id number] [place] [address] [place] Creatinine and Glomerular filtration rate.predicted panel (S/P/Bld) 71 mL/min/1.73m??? Normal >=60 [facility] Comment on above: Order Comment: Speci men Type: BLOOD SPECIMENOrdering Facility: [facility] Address: [address] [place] [address] Result Comment: Janeth mated Glomerular Filtration Rate (eGFR) is calculated using the 2020 CKD-EPI creatinine equation. This equation utilizes serum creatinine, sex, and age as parameters. The creatinine assay has traceable calibration to isotope dilution-mass spectrometry. Refer to KDIGO guidelines for clinical interpretation. In patients with unstable renal function, e.g. those with acute kidney injury, the eGFR may not accurately reflect actual GFR. Performed By: #### 2 4323-8 ####[facility] PETERSBURGNCLIA [id number] [place] [address] [place] Glucose [Mass/Vol] 392 mg/dL High 74-99 [facility] Comment on above: Order Comment: Speci men Type: BLOOD SPECIMENOrdering Facility: [facility] Address: [address] [place] [address] Result Comment: The [place] Diabetes [employer] (ADA) provides guidance for cutoff values for fasting glucose and random glucose. The ADA defines fasting as no caloric intake for at least 8 hours. Fasting plasma glucose results between 100 to 125 mg/dL indicate increased risk for diabetes (prediabetes).Fasting plasma glucose results greater than or equal to 126 mg/dL meet the criteria for diagnosis of diabetes. In the absence of unequivocal hyperglycemia, results should be confirmed by repeat testing. In a patient with classic symptoms of hyperglycemia or hyperglycemic crisis, random plasma glucose results greater than or equal to 200 mg/dL meet the criteria for diagnosis of diabetes.Reference: Standards of Medical Care in Diabetes 2016, [place] [employer]. Diabetes Care. 2016.39(Suppl 1). Performed By: #### 2 4323-8 ####[facility] MILLTOWNCLIA [id number] [place] [address] [place] Potassium [Moles/Vol] 4.9 mmol/L Normal 3.7-5.1 [facility] Comment on above: Order Comment: Speci men Type: BLOOD SPECIMENOrdering Facility: [facility] Address: [address] [place] [address] Performed By: #### 2 4323-8 ####[facility] MED[facility] CENTERLIA [id number] [place] [address] [place] Protein [Mass/Vol] 8.5 g/dL High 6.3-8.0 [facility] Comment on above: Order Comment: Speci men Type: BLOOD SPECIMENOrdering Facility: [facility] Address: [address] [place] [address] Performed By: #### 2 4323-8 ####[facility] MILLWNCLIA [id number] [place] [address] [place] Sodium [Moles/Vol] 129 mmol/L Low 136-144 [facility] Comment on above: Order Comment: Speci men Type: BLOOD SPECIMENOrdering Facility: [facility] Address: [address] [place] [address] Performed By: #### 2 4323-8 ####[facility] MILLWNCLIA [id number] [place] [address] [place] Urea nitrogen [Mass/Vol] 43 mg/dL High 9-24 [facility] Comment on above: Order Comment: Speci men Type: BLOOD SPECIMENOrdering Facility: [facility] Address: [address] [place] [address] Performed By: #### 2 4323-8 ####[facility] [id number] [place] [address] [place] CNPNon 03-01-2024 CNPN Normal [facility] 25(OH)D3 [facility] 20[facility] 25-hydroxyvitamin D3 [Mass/Vol] 32.4 ng/mL Normal 31.0-80.0 [facility] Comment on above: Order Comment: Speci men Type: BLOOD SPECIMENOrdering Facility: [facility] Address: [address] [place] [address] Result Comment: Clas sification of 25 [place] Vitamin D status:Deficiency/Insufficiency: < or = 30 ng/ml.Sufficiency/Optimal Levels: 31-80 ng/mLToxicity: > 100 ng/mL.Test performed by chemiluminescent immunoassay. Performed By: #### 1 989-3 ####[facility] LABCLIA [id number] [place] [address] [place] A-Tocopherol Vit E [facility]-n con 02-27-2024 Alpha tocopherol [Mass/Vol] 6.3 mg/L Normal 6.0-23.0 [facility] Comment on above: Order Comment: Speci men Type: BLOOD SPECIMENOrdering Facility: [facility] Address: [address] [place] [address] Performed By: #### 1 823-4, 2923-1 ####[facility] LABCLIA [id number] [place] [address] [place] Alpha tocopherol [Mass/Vol]o n 02-27-2024 Beta+gamma tocopherol [Mass/Vol] 0.8 mg/L Normal 0.3-3.2 [facility] Comment on above: Order Comment: Speci men Type: BLOOD SPECIMENOrdering Facility: [facility] Address: [address] [place] [address] Result Comment: This test was developed and its performance characteristics determined by [facility]'s Louie Maude [facility] [place] ([facility]). It has not been cleared or approved by the FDA. [facility] is regulated under CLIA as qualified to perform high-complexity testing. This test is used for clinical purposes. It should not be regarded as investigational or for research. Performed By: #### 1 823-4, 2923-1 ####[facility] LABCLIA [id number] [place] [address] [place] CBC W Auto Differential pane l (Bld)on 02-27-2024 Basophils (Bld) [#/Vol] 0.06 10*3/uL Normal <0.11 [facility] Comment on above: Order Comment: Speci men Type: BLOOD SPECIMENOrdering Facility: [facility] Address: [address] [place] [address] Performed By: #### 5 7021-8 ####[facility] [id number] [place] [address] [place] Basophils/100 WBC (Bld) 1.3 % Normal [facility] Comment on above: Order Comment: Speci men Type: BLOOD SPECIMENOrdering Facility: [facility] Address: [address] [place] [address] Performed By: #### 5 7021-8 ####[facility] CENTERLIA [id number] [place] [address] [place] Differential cell count method Nom (Bld) Auto Normal [facility] Comment on above: Order Comment: Speci men Type: BLOOD SPECIMENOrdering Facility: [facility] Address: [address] [place] [address] Performed By: #### 5 7021-8 ####[facility] MILLWNCLIA [id number] [place] [address] [place] Eosinophils (Bld) [#/Vol] 0.77 10*3/uL High <0.46 [facility] Comment on above: Order Comment: Speci men Type: BLOOD SPECIMENOrdering Facility: [facility] Address: [address] [place] [address] Performed By: #### 5 7021-8 ####[facility] CENTERLIA [id number] [place] [address] [place] Eosinophils/100 WBC (Bld) 16.4 % Normal [facility] Comment on above: Order Comment: Speci men Type: BLOOD SPECIMENOrdering Facility: [facility] Address: [address] [place] [address] Performed By: #### 5 7021-8 ####[facility] CENTERLI [id number] [place] [address] [place] Erythrocyte distribution width (RBC) [Ratio] 13.5 % Normal 11.5-15.0 [facility] Comment on above: Order Comment: Speci men Type: BLOOD SPECIMENOrdering Facility: [facility] Address: [address] [place] [address] Performed By: #### 5 7021-8 ####[facility] MED[facility] CENTERLIA [id number] [place] [address] [place] Hematocrit (Bld) [Volume fraction] 23.9 % Low 39.0-51.0 [facility] Comment on above: Order Comment: Speci men Type: BLOOD SPECIMENOrdering Facility: [facility] Address: [address] [place] [address] Performed By: #### 5 7021-8 ####[facility] PETERSBURGNCLIA [id number] [place] [address] [place] Hemoglobin (Bld) [Mass/Vol] 7.7 g/dL Low 13.0-17.0 [facility] Comment on above: Order Comment: Speci men Type: BLOOD SPECIMENOrdering Facility: [facility] Address: [address] [place] [address] Performed By: #### 5 7021-8 ####[facility] CENTERLIA [id number] [place] [address] [place] Immature granulocytes (Bld) [#/Vol] 10*3/uL Normal <0.10 [facility] Comment on above: Order Comment: Speci men Type: BLOOD SPECIMENOrdering Facility: [facility] Address: [address] [place] [address] Performed By: #### 5 7021-8 ####[facility]ERSBURGNCJORD[facility] [id number] [place] [address] [place] Immature granulocytes/100 WBC (Bld) 0.2 % Normal [facility] Comment on above: Order Comment: Speci men Type: BLOOD SPECIMENOrdering Facility: [facility] Address: [address] [place] [address] Performed By: #### 5 7021-8 ####[facility] [id number] [place] [address] [place] Lymphocytes (Bld) [#/Vol] 1.67 10*3/uL Normal 1.00-4.00 [facility] Comment on above: Order Comment: Speci men Type: BLOOD SPECIMENOrdering Facility: [facility] Address: [address] [place] [address] Performed By: #### 5 7021-8 ####[facility] PETERSBURGNCLIA [id number] [place] [address] [place] Lymphocytes/100 WBC (Bld) 35.5 % Normal [facility] Comment on above: Order Comment: Speci men Type: BLOOD SPECIMENOrdering Facility: [facility] Address: [address] [place] [address] Performed By: #### 5 7021-8 ####[facility] LEXIE [id number] MCH (RBC) [Entitic mass] 30.1 pg Normal 26.0-34.0 [facility] Comment on above: Order Comment: Speci men Type: BLOOD SPECIMENOrdering Facility: [facility] Address: [address] [place] [address] Performed By: #### 5 7021-8 ####[facility] PETERSBURGNCJENNIFFER [id number] [place] [address] [place] MCHC (RBC) [Mass/Vol] 32.2 g/dL Normal 30.5-36.0 [facility] Comment on above: Order Comment: Speci men Type: BLOOD SPECIMENOrdering Facility: [facility] Address: [address] [place] [address] Performed By: #### 5 7021-8 ####[facility] PETERSBURGZAKIAri [id number] [place] [address] [place] MCV (RBC) [Entitic vol] 93.4 fL Normal 80.0-100.0 [facility] Comment on above: Order Comment: Speci men Type: BLOOD SPECIMENOrdering Facility: [facility] Address: [address] [place] [address] Performed By: #### 5 7021-8 ####[facility] [id number] [place] [address] [place] Monocytes (Bld) [#/Vol] 0.62 10*3/uL Normal <0.87 [facility] Comment on above: Order Comment: Speci men Type: BLOOD SPECIMENOrdering Facility: [facility] Address: [address] [place] [address] Performed By: #### 5 7021-8 ####[facility] IMP[facility] POINTWNCLIA [id number] [place] [address] [place] Monocytes/100 WBC (Bld) 13.2 % Normal [facility] Comment on above: Order Comment: Speci men Type: BLOOD SPECIMENOrdering Facility: [facility] Address: [address] [place] [address] Performed By: #### 5 7021-8 ####[facility] CENTERLIA [id number] [place] [address] [place] Neutrophils (Bld) [#/Vol] 1.57 10*3/uL Normal 1.45-7.50 [facility] Comment on above: Order Comment: Speci men Type: BLOOD SPECIMENOrdering Facility: [facility] Address: [address] [place] [address] Performed By: #### 5 7021-8 ####[facility] [id number] [place] [address] [place] Neutrophils/100 WBC (Bld) 33.4 % Normal [facility] Comment on above: Order Comment: Speci men Type: BLOOD SPECIMENOrdering Facility: [facility] Address: [address] [place] [address] Performed By: #### 5 7021-8 ####[facility] CENTERLIA [id number] [place] [address] [place] Nucleated RBC (Bld) [#/Vol] 10*3/uL Normal <0.01 [facility] Comment on above: Order Comment: Speci men Type: BLOOD SPECIMENOrdering Facility: [facility] Address: [address] [place] [address] Performed By: #### 5 7021-8 ####[facility] PETERSBURGNCLIA [id number] [place] [address] [place] Nucleated RBC/100 WBC (Bld) [Ratio] 0.0 /100 WBC Normal [facility] Comment on above: Order Comment: Speci men Type: BLOOD SPECIMENOrdering Facility: [facility] Address: [address] [place] [address] Performed By: #### 5 7021-8 ####[facility]ERSBURGNCJORD[facility] [id number] [place] [address] [place] Platelet mean volume (Bld) [Entitic vol] 9.4 fL Normal 9.0-12.7 [facility] Comment on above: Order Comment: Speci men Type: BLOOD SPECIMENOrdering Facility: [facility] Address: [address] [place] [address] Performed By: #### 5 7021-8 ####[facility] [id number] [place] [address] [place] Platelets (Bld) [#/Vol] 211 10*3/uL Normal 150-400 [facility] Comment on above: Order Comment: Speci men Type: BLOOD SPECIMENOrdering Facility: [facility] Address: [address] [place] [address] Performed By: #### 5 7021-8 ####[facility]GNCJORD[facility] [id number] [place] [address] [place] RBC (Bld) [#/Vol] 2.56 10*6/uL Low 4.20-6.00 [facility] Comment on above: Order Comment: Speci men Type: BLOOD SPECIMENOrdering Facility: [facility] Address: [address] [place] [address] Performed By: #### 5 7021-8 ####[facility]GNCJORD[facility] [id number] [place] [address] [place] WBC (Bld) [#/Vol] 4.70 10*3/uL Normal 3.70-11.00 [facility] Comment on above: Order Comment: Speci men Type: BLOOD SPECIMENOrdering Facility: [facility] Address: [address] [place] [address] Performed By: #### 5 7021-8 ####[facility] PETERSBURGNCLIA [id number] [place] [address] [place] CRP SerPl-mCncon 02-27-2024 CRP [Mass/Vol] 0.3 mg/dL Normal <0.9 [facility] Comment on above: Order Comment: Speci men Type: BLOOD SPECIMENOrdering Facility: [facility] Address: [address] [place] [address] Performed By: #### 1 988-5, 2324-2 ####[facility] LABCLIA [id number] [place] [address] [place] Comprehensive metabolic 2000 panelon 02-27-2024 Albumin [Mass/Vol] 2.6 g/dL Low 3.9-4.9 [facility] Comment on above: Order Comment: Speci men Type: BLOOD SPECIMENOrdering Facility: [facility] Address: [address] [place] [address] Performed By: #### 1 9123-9, 01913-3 ####[facility] PETERSBURGNCLIA [id number] [place] [address] [place] ALP [Catalytic activity/Vol] 913 U/L High 38-113 [facility] Comment on above: Order Comment: Speci men Type: BLOOD SPECIMENOrdering Facility: [facility] Address: [address] [place] [address] Performed By: #### 1 9123-9, 25963-9 ####[facility] PETERSBURGNCLIA [id number] [place] [address] [place] ALT [Catalytic activity/Vol] 73 U/L High 10-54 [facility] Comment on above: Order Comment: Speci men Type: BLOOD SPECIMENOrdering Facility: [facility] Address: [address] [place] [address] Performed By: #### 1 9123-9, 45614-0 ####[facility] MAXWELL LEXIE [id number] [place] [address] [place] Anion gap [Moles/Vol] 4 mmol/L Low 9-18 [facility] Comment on above: Order Comment: Speci men Type: BLOOD SPECIMENOrdering Facility: [facility] Address: [address] [place] [address] Performed By: #### 1 9123-9, 71245-6 ####[facility] PETERSBURGJOAQUÍN [id number] [place] [address] [place] AST [Catalytic activity/Vol] 111 U/L High 14-40 [facility] Comment on above: Order Comment: Speci men Type: BLOOD SPECIMENOrdering Facility: [facility] Address: [address] [place] [address] Performed By: #### 1 9123-9, 86378-8 ####[facility] RUSSELLKENDRICKJOAQUÍN [id number] [place] [address] [place] Bilirubin [Mass/Vol] 0.8 mg/dL Normal 0.2-1.3 [facility] Comment on above: Order Comment: Speci men Type: BLOOD SPECIMENOrdering Facility: [facility] Address: [address] [place] [address] Performed By: #### 1 9123-9, 54746-5 ####[facility] CENTERLIA [id number] [place] [address] [place] Calcium [Mass/Vol] 9.0 mg/dL Normal 8.5-10.2 [facility] Comment on above: Order Comment: Speci men Type: BLOOD SPECIMENOrdering Facility: [facility] Address: [address] [place] [address] Performed By: #### 1 9123-9, 06183-1 ####[facility] MILLWNCLIA [id number] [place] [address] [place] Chloride [Moles/Vol] 107 mmol/L High 97-105 [facility] Comment on above: Order Comment: Speci men Type: BLOOD SPECIMENOrdering Facility: [facility] Address: [address] [place] [address] Performed By: #### 1 9123-9, 39129-9 ####[facility] [id number] [place] [address] [place] CO2 [Moles/Vol] 23 mmol/L Normal 22-30 [facility] Comment on above: Order Comment: Speci men Type: BLOOD SPECIMENOrdering Facility: [facility] Address: [address] [place] [address] Performed By: #### 1 9123-9, 99831-5 ####[facility] CENTERLIA [id number] [place] [address] [place] Creatinine [Mass/Vol] 1.02 mg/dL Normal 0.73-1.22 [facility] Comment on above: Order Comment: Speci men Type: BLOOD SPECIMENOrdering Facility: [facility] Address: [address] [place] [address] Performed By: #### 1 9123-9, 32492-4 ####[facility] [id number] [place] [address] [place] Creatinine and Glomerular filtration rate.predicted panel (S/P/Bld) 101 mL/min/1.73m??? Normal >=60 [facility] Comment on above: Order Comment: Speci men Type: BLOOD SPECIMENOrdering Facility: [facility] Address: [address] [place] [address] Result Comment: Janeth mated Glomerular Filtration Rate (eGFR) is calculated using the 2020 CKD-EPI creatinine equation. This equation utilizes serum creatinine, sex, and age as parameters. The creatinine assay has traceable calibration to isotope dilution-mass spectrometry. Refer to KDIGO guidelines for clinical interpretation. In patients with unstable renal function, e.g. those with acute kidney injury, the eGFR may not accurately reflect actual GFR. Performed By: #### 1 9123-9, 94126-5 ####[facility] RUSSELLLEXIINCLIA [id number] [place] [address] [place] Glucose [Mass/Vol] 120 mg/dL High 74-99 [facility] Comment on above: Order Comment: Speci men Type: BLOOD SPECIMENOrdering Facility: [facility] Address: [address] [place] [address] Result Comment: The [place] [employer] (ADA) provides guidance for cutoff values for fasting glucose and random glucose. The ADA defines fasting as no caloric intake for at least 8 hours. Fasting plasma glucose results between 100 to 125 mg/dL indicate increased risk for diabetes (prediabetes).Fasting plasma glucose results greater than or equal to 126 mg/dL meet the criteria for diagnosis of diabetes. In the absence of unequivocal hyperglycemia, results should be confirmed by repeat testing. In a patient with classic symptoms of hyperglycemia or hyperglycemic crisis, random plasma glucose results greater than or equal to 200 mg/dL meet the criteria for diagnosis of diabetes.Reference: Standards of Medical Care in Diabetes 2016, [place] [employer]. Diabetes Care. 2016.39(Suppl 1). Performed By: #### 1 9123-9, 60907-9 ####[facility] IMP[facility] POINTWZAKILIA [id number] [place] [address] [place] Potassium [Moles/Vol] 5.0 mmol/L Normal 3.7-5.1 [facility] Comment on above: Order Comment: Kanu sainz Type: BLOOD SPECIMENOrdering Facility: [facility] Address: [address] [id number] Performed By: #### 1 9123-9, 02920-5 ####[facility] IMP[facility] POINTCHITOA [id number] [place] [address] [place] Protein [Mass/Vol] 8.1 g/dL High 6.3-8.0 [facility] Comment on above: Order Comment: Speci men Type: BLOOD SPECIMENOrdering Facility: [facility] Address: [address] [place] [address] Performed By: #### 1 9123-9, 59942-7 ####[facility]GNCJORD[facility] [id number] [place] [address] [place] Sodium [Moles/Vol] 134 mmol/L Low 136-144 [facility] Comment on above: Order Comment: Speci men Type: BLOOD SPECIMENOrdering Facility: [facility] Address: [address] [place] [address] Performed By: #### 1 9123-9, 05570-5 ####[facility] [id number] [place] [address] [place] Urea nitrogen [Mass/Vol] 31 mg/dL High 9-24 [facility] Comment on above: Order Comment: Speci men Type: BLOOD SPECIMENOrdering Facility: [facility] Address: [address] [place] [address] Performed By: #### 1 9123-9, 24362-4 ####[facility] PETERSBURGNCLIA [id number] [place] [address] [place] ESR Westergren method (Bld) [Velocity]on 02-27-2024 ESR (Bld) [Velocity] 118 mm/h High 0-15 [facility] Comment on above: Order Comment: Speci men Type: BLOOD SPECIMENOrdering Facility: [facility] Address: [address] [place] [address] Performed By: #### 4 537-7 ####[facility] LABCLIA [id number] [place] [address] [place] GGT SerPl-cCncon 02-27-2024 Gamma glutamyl transferase [Catalytic activity/Vol] 500 U/L High 10-70 [facility] Comment on above: Order Comment: Speci men Type: BLOOD SPECIMENOrdering Facility: [facility] Address: [address] [place] [address] Performed By: #### 1 988-5, 2324-2 ####[facility] [id number] [place] [address] [place] IgE SerPl-aCncon 02-27-2024 IgE Qn 13.2 kU/l Normal <114.0 [facility] Comment on above: Order Comment: Speci men Type: BLOOD SPECIMENOrdering Facility: [facility] Address: [address] [place] [address] Performed By: #### 1 9113-0 ####[facility] [id number] [place] [address] [place] Magnesium SerPl-mCncon 02-26 Magnesium [Mass/Vol] 1.9 mg/dL Normal 1.7-2.3 [facility] Comment on above: Order Comment: Speci men Type: BLOOD SPECIMENOrdering Facility: [facility] Address: [address] [place] [address] Performed By: #### 1 9123-9, 54767-6 ####[facility] [id number] [place] [address] [place] PT panel Coag (PPP)on 2023 INR Coag (PPP) [Relative time] 1.0 {INR} Normal 0.9-1.3 [facility] Comment on above: Order Comment: Speci men Type: BLOOD SPECIMENOrdering Facility: [facility] Address: [address] [place] [address] Result Comment: Bridgette min K Antagonist (VKA) Therapeutic Range: INR 2 to 3 (Target INR of 2.5)Note: For patients treated with VKA drugs, such as warfarin, the [place] [employer] 2012 Guideline recommends a therapeutic INR range of 2 to 3 (target INR of 2.5). This recommendation includes high-risk patients with antiphospholipid syndrome with previous arterial or venous thromboembolism, current-generation mechanical or bioprosthetic aortic heart valve replacement.Note: Patients with mechanical aortic valve replacement and additional risk factors for thromboembolic events (atrial fibrillation, previous thromboembolism, LV dysfunction, hypercoagulable conditions) or an older generation mechanical AVR (i.e., ball in-Cage) or any mechanical MVR should have a INR therapeutic range of 2.5 to 3.5 (target INR of 3).Sam MARTINEZ, et al. Chest 2012, 141:7S-47SNishrhoda RA, et al. JACC 2017, 70: 252-289 Performed By: #### 3 4528-0 ####[facility] [id number] [place] [address] [place] PT Coag (PPP) [Time] 10.4 s Normal <13.1 [facility] Comment on above: Order Comment: Speci men Type: BLOOD SPECIMENOrdering Facility: [facility] Address: [address] [place] [address] Performed By: #### 3 4528-0 ####[facility] [id number] [place] [address] [place] Vit A SerPl-mCncon 4 Retinol [Mass/Vol] 0.29 mg/L Low 0.30-1.20 [facility] Comment on above: Order Comment: Specyolanda sainz Type: BLOOD SPECIMENOrdering Facility: [facility] Address: [address] [place] [address] Result Comment: This test was developed and its performance characteristics determined by [facility]'s Louie Santoro [facility] [place] ([facility]). It has not been cleared or approved by the FDA. -[facility] is regulated under CLIA as qualified to perform high-complexity testing. This test is used for clinical purposes. It should not be regarded as investigational or for research. Performed By: #### 1 823-4, 2923-1 ####[facility] [id number] [place] [address] [place] CNOVon 02-25-2024 CNOV Normal [facility] CNPNon 02-25-2024 CNPN Normal [facility] BILIRUBIN TOTAL BLDon 2023 Bilirubin [Mass/Vol] 0.70 mg/dL 0.2 - 1 [facility] CBC W Auto Differential pane l (Bld)on 02-24-2024 Abs Neut (ANC) 1.8 K/uL Abnormal 2 - 7.7 K/uL [facility] Eosinophils/100 WBC (Bld) 12.1 % Abnormal 0 - 5 [facility] Hematocrit (Bld) [Volume fraction] 23.1 % Abnormal 40 - 54 % [facility] Hemoglobin (Bld) [Mass/Vol] 7.5 g/dL Abnormal 13 - 16.5 g/dL [facility] Neutrophils/100 WBC (Bld) 45.4 % Abnormal 47 - 70 [facility] Platelets (Bld) [#/Vol] 225 10*3/uL 150 - 450 K/uL [facility] WBC (Bld) [#/Vol] 4.0 10*3/uL Abnormal 4.4 - 11.0 K/uL [facility] Comprehensive metabolic 2000 panelon 02-24-2024 ALP [Catalytic activity/Vol] 915 U/L Abnormal 45 - 117 [facility] ALT [Catalytic activity/Vol] 96 U/L Abnormal 16 - 61 [facility] AST [Catalytic activity/Vol] 163 U/L Abnormal 15 - 37 [facility] Creatinine [Mass/Vol] 1.60 mg/dL Abnormal 0.7 - 1.3 MG/DL [facility] Potassium [Moles/Vol] 4.9 mmol/L 3.5 - 5.1 [facility] VANCOMYCIN PRE DOSEon 2023 Vancomycin Pre 18.1 Abnormal 5 - 15 [facility] CNPNon 02-20-2024 CNPN Normal [facility] CNPNon 02-19-2024 CNPN Normal [facility] Vancomycin Crescent SerPl-mCncon 02-19-2024 Vancomycin random [Mass/Vol] 21.4 ug/mL High 10.0-20.0 [facility] Comment on above: Order Comment: Speci men Type: BLOOD SPECIMENOrdering Facility: [facility] Address: [address] [place] [address] Result Comment: Refe rence ranges and high/low indicator flags are provided as general guidelines only. The treating physician must determine appropriate target levels/dosing based on the specific clinical situation. Performed By: #### 4 091-5 ####[facility] [id number] [address] [address] [address] [place] CNCOon 02-18-2024 CNCO Letter Text Normal [facility] CNPNon 02-18-2024 CNPN Normal [facility] CBC W Auto Differential pane l (Bld)on 02-17-2024 Abs Neut (ANC) 2.5 K/uL 2 - 7.7 K/uL [facility] Eosinophils/100 WBC (Bld) 6.5 % Abnormal 0 - 5 [facility] Hematocrit (Bld) [Volume fraction] 25.7 % Abnormal 40 - 54 % [facility] Hemoglobin (Bld) [Mass/Vol] 8.3 g/dL Abnormal 13 - 16.5 g/dL [facility] Neutrophils/100 WBC (Bld) 51.0 % 47 - 70 [facility] Platelets (Bld) [#/Vol] 179 10*3/uL 150 - 450 K/uL [facility] WBC (Bld) [#/Vol] 4.9 10*3/uL 4.4 - 11.0 K/uL [facility] CNPNon 02-17-2024 CNPN Normal [facility] Comprehensive metabolic 2000 panelon 02-17-2024 Creatinine [Mass/Vol] 1.26 mg/dL 0.7 - 1.3 MG/DL [facility] Potassium [Moles/Vol] 4.3 mmol/L 3.5 - 5.1 [facility] VANCOMYCIN LEVELon Vancomycin, result 33.5 Abnormal 0 - 15 [facility] CASE MANAGEMon 02-16-2024 CASE MANAGEM Normal [facility] CBC panel Auto (Bld)on 02-15 Erythrocyte distribution width (RBC) [Ratio] 15.9 % High 11.5-15.0 [facility] Comment on above: Order Comment: Speci men Type: BLOOD SPECIMENOrdering Facility: [facility] Address: [address] [place] [address] Performed By: #### 5 8410-2 ####[facility] LAB[facility] [id number] [place] [address] [place] Hematocrit (Bld) [Volume fraction] 24.5 % Low 39.0-51.0 [facility] Comment on above: Order Comment: Speci men Type: BLOOD SPECIMENOrdering Facility: [facility] Address: [address] [place] [address] Performed By: #### 5 8410-2 ####[facility] [id number] [place] [address] [place] Hemoglobin (Bld) [Mass/Vol] 8.1 g/dL Low 13.0-17.0 [facility] Comment on above: Order Comment: Speci men Type: BLOOD SPECIMENOrdering Facility: [facility] Address: [address] [place] [address] Performed By: #### 5 8410-2 ####[facility] [id number] [place] [address] [place] MCH (RBC) [Entitic mass] 30.8 pg Normal 26.0-34.0 [facility] Comment on above: Order Comment: Speci men Type: BLOOD SPECIMENOrdering Facility: [facility] Address: [address] [place] [address] Performed By: #### 5 8410-2 ####[facility] [id number] [place] [address] [place] MCHC (RBC) [Mass/Vol] 33.1 g/dL Normal 30.5-36.0 [facility] Comment on above: Order Comment: Speci men Type: BLOOD SPECIMENOrdering Facility: [facility] Address: [address] [place] [address] Performed By: #### 5 8410-2 ####[facility] [id number] [place] [address] [place] MCV (RBC) [Entitic vol] 93.2 fL Normal 80.0-100.0 [facility] Comment on above: Order Comment: Speci men Type: BLOOD SPECIMENOrdering Facility: [facility] Address: [address] [place] [address] Performed By: #### 5 8410-2 ####[facility] [id number] [place] [address] [place] Nucleated RBC (Bld) [#/Vol] 10*3/uL Normal <0.01 [facility] Comment on above: Order Comment: Speci men Type: BLOOD SPECIMENOrdering Facility: [facility] Address: [address] [place] [address] Performed By: #### 5 8410-2 ####[facility] [id number] [place] [address] [place] Platelet mean volume (Bld) [Entitic vol] 10.5 fL Normal 9.0-12.7 [facility] Comment on above: Order Comment: Speci men Type: BLOOD SPECIMENOrdering Facility: [facility] Address: [address] [place] [address] Performed By: #### 5 8410-2 ####[facility] [id number] [place] [address] [place] Platelets (Bld) [#/Vol] 199 10*3/uL Normal 150-400 [facility] Comment on above: Order Comment: Speci men Type: BLOOD SPECIMENOrdering Facility: [facility] Address: [address] [place] [address] Performed By: #### 5 8410-2 ####[facility] [id number] [place] [address] [place] RBC (Bld) [#/Vol] 2.63 10*6/uL Low 4.20-6.00 [facility] Comment on above: Order Comment: Speci men Type: BLOOD SPECIMENOrdering Facility: [facility] Address: [address] [place] [address] Performed By: #### 5 8410-2 ####[facility] [id number] [place] [address] [place] WBC (Bld) [#/Vol] 4.28 10*3/uL Normal 3.70-11.00 [facility] Comment on above: Order Comment: Speci men Type: BLOOD SPECIMENOrdering Facility: [facility] Address: [address] [place] [address] Performed By: #### 5 8410-2 ####[facility] [id number] [place] [address] [place] CNCNPATEDon 02-16-2024 CNCNPATED Normal [facility] CNDSon 02-16-2024 CNDS Normal [facility] CONSULT PROGon 02-16-2024 CONSULT PROG Normal [facility] CONSULT PROG Normal [facility] Comprehensive metabolic 2000 panelon 02-16-2024 Albumin [Mass/Vol] 1.9 g/dL Low 3.9-4.9 [facility] Comment on above: Order Comment: Speci men Type: BLOOD SPECIMENOrdering Facility: [facility] Address: [address] [place] [address] Performed By: #### 2 4323-8 ####[facility] [id number] [place] [address] [place] ALP [Catalytic activity/Vol] 774 U/L High 38-113 [facility] Comment on above: Order Comment: Speci men Type: BLOOD SPECIMENOrdering Facility: [facility] Address: [address] [place] [address] Performed By: #### 2 4323-8 ####[facility] [id number] [place] [id number] [place] ALT [Catalytic activity/Vol] 27 U/L Normal 10-54 [facility] Comment on above: Order Comment: Speci men Type: BLOOD SPECIMENOrdering Facility: [facility] Address: [address] [place] [address] Performed By: #### 2 4323-8 ####[facility] [id number] [place] [address] [place] Anion gap [Moles/Vol] 6 mmol/L Low 9-18 [facility] Comment on above: Order Comment: Speci men Type: BLOOD SPECIMENOrdering Facility: [facility] Address: [address] [place] [address] Performed By: #### 2 4323-8 ####[facility] [id number] [place] [address] [place] AST [Catalytic activity/Vol] 57 U/L High 14-40 [facility] Comment on above: Order Comment: Speci men Type: BLOOD SPECIMENOrdering Facility: [facility] Address: [address] [place] [address] Performed By: #### 2 4323-8 ####[facility] [id number] [place] [address] [place] Bilirubin [Mass/Vol] 0.7 mg/dL Normal 0.2-1.3 [facility] Comment on above: Order Comment: Speci men Type: BLOOD SPECIMENOrdering Facility: [facility] Address: [address] [place] [address] Performed By: #### 2 4323-8 ####[facility] [id number] [place] [address] [place] Calcium [Mass/Vol] 8.3 mg/dL Low 8.5-10.2 [facility] Comment on above: Order Comment: Speci men Type: BLOOD SPECIMENOrdering Facility: [facility] Address: [address] [place] [address] Performed By: #### 2 4323-8 ####[facility] [id number] [place] [id number] [place] Chloride [Moles/Vol] 103 mmol/L Normal 97-105 [facility] Comment on above: Order Comment: Speci men Type: BLOOD SPECIMENOrdering Facility: [facility] Address: [address] [place] [address] Performed By: #### 2 4323-8 ####[facility] [id number] [place] [address] [place] CO2 [Moles/Vol] 26 mmol/L Normal 22-30 [facility] Comment on above: Order Comment: Speci men Type: BLOOD SPECIMENOrdering Facility: [facility] Address: [address] [place] [address] Performed By: #### 2 4323-8 ####[facility] [id number] [place] [address] [place] Creatinine [Mass/Vol] 0.95 mg/dL Normal 0.73-1.22 [facility] Comment on above: Order Comment: Speci men Type: BLOOD SPECIMENOrdering Facility: [facility] Address: [address] [place] [address] Performed By: #### 2 4323-8 ####[facility] [id number] [place] [address] [place] Creatinine and Glomerular filtration rate.predicted panel (S/P/Bld) 110 mL/min/1.73m??? Normal >=60 [facility] Comment on above: Order Comment: Speci men Type: BLOOD SPECIMENOrdering Facility: [facility] Address: [address] [place] [address] Result Comment: Janeth mated Glomerular Filtration Rate (eGFR) is calculated using the 2020 CKD-EPI creatinine equation. This equation utilizes serum creatinine, sex, and age as parameters. The creatinine assay has traceable calibration to isotope dilution-mass spectrometry. Refer to KDIGO guidelines for clinical interpretation. In patients with unstable renal function, e.g. those with acute kidney injury, the eGFR may not accurately reflect actual GFR. Performed By: #### 2 4323-8 ####[facility] LABIA [id number] [place] [address] [place] Glucose [Mass/Vol] 183 mg/dL High 74-99 [facility] Comment on above: Order Comment: Kanu sainz Type: BLOOD SPECIMENOrdering Facility: [facility] Address: [address] [place] [address] Result Comment: The [place] [employer] (ADA) provides guidance for cutoff values for fasting glucose and random glucose. The ADA defines fasting as no caloric intake for at least 8 hours. Fasting plasma glucose results between 100 to 125 mg/dL indicate increased risk for diabetes (prediabetes).Fasting plasma glucose results greater than or equal to 126 mg/dL meet the criteria for diagnosis of diabetes. In the absence of unequivocal hyperglycemia, results should be confirmed by repeat testing. In a patient with classic symptoms of hyperglycemia or hyperglycemic crisis, random plasma glucose results greater than or equal to 200 mg/dL meet the criteria for diagnosis of diabetes.Reference: Standards of Medical Care in Diabetes 2016, [place] [employer]. Diabetes Care. 2016.39(Suppl 1). Performed By: #### 2 4323-8 ####[facility] [id number] [place] [id number] [place] Potassium [Moles/Vol] 4.7 mmol/L Normal 3.7-5.1 [facility] Comment on above: Order Comment: Kanu sainz Type: BLOOD SPECIMENOrdering Facility: [facility] Address: [address] [place] [address] Performed By: #### 2 4323-8 ####[facility] [id number] [address] [address] [place] Protein [Mass/Vol] 6.9 g/dL Normal 6.3-8.0 [facility] Comment on above: Order Comment: Speci men Type: BLOOD SPECIMENOrdering Facility: [facility] Address: [address] [place] [address] Performed By: #### 2 4323-8 ####[facility] [id number] [place] [address] [place] Sodium [Moles/Vol] 135 mmol/L Low 136-144 [facility] Comment on above: Order Comment: Speci men Type: BLOOD SPECIMENOrdering Facility: [facility] Address: [address] [place] [address] Performed By: #### 2 4323-8 ####[facility] [id number] [place] [address] [place] Urea nitrogen [Mass/Vol] 31 mg/dL High 9-24 [facility] Comment on above: Order Comment: Speci men Type: BLOOD SPECIMENOrdering Facility: [facility] Address: [address] [place] [address] Performed By: #### 2 4323-8 ####[facility] [id number] [place] [address] [place] PHOSPHATIDYLETHANOL (PETH)on 02-16-2024 EER PETH See Note Normal [facility] Comment on above: Order Comment: Speci men Type: BLOOD SPECIMENOrdering Facility: [facility] Address: [address] [place] [address] Result Comment: Auth orized individuals can access the OFELIACleveland [facility] Mentor Hospitalanced Report using the following link:[email or web address] Performed By: #### P ETH ####[facility] [id number] [place] [address] PETH 16:0/18.2 (PLPETH) 15 ng/mL Normal [facility] Comment on above: Order Comment: Speci men Type: BLOOD SPECIMENOrdering Facility: [facility] Address: [address] [place] [address] Result Comment: Refe rence ranges are not well established. Performed By: #### P ETH ####[facility] [id number] [place] [address] PETH 16:0/18:1 (POPETH) 38 ng/mL Normal [facility] Comment on above: Order Comment: Speci men Type: BLOOD SPECIMENOrdering Facility: [facility] Address: [address] [place] [address] Result Comment: PEth 16:0/18:1 (POPEth)Less than 10 ng/mL............Not detectedLess than 20 ng/mL............Abstinence or light [id number] - 200 ng/mL................Moderate alcohol consumptionGreater than 200 ng/mL........Heavy alcohol consumption or chronicalcohol use(Reference: Alyx Deleon and Rita Hampton 2018 J. Forensic Sci) Performed By: #### P ETH ####[facility] [id number] [place] [address] PETH INTERPRETATION See Comment Normal [facility] Comment on above: Order Comment: Speci men Type: BLOOD SPECIMENOrdering Facility: [facility] Address: [address] [place] [address] Result Comment: Phos phatidylethanol (PEth) is a group of phospholipids formed inthe presence of ethanol, phospholipase D and phosphatidylcholine.PEth is known to be a direct alcohol biomarker. The predominantPEth homologues are PEth 16:0/18:1 (POPEth) and PEth 16:0/18:2(PLPEth), which account for 37-46% and 26-28% of the total PEthhomologues, respectively. PEth is incorporated into thephospholipid membrane of red blood cells and has a generalhalf-life of 4-10 days and a window of detection of 2-4 weeks.However, the window of detection is longer in individuals whochronically or excessively consume alcohol. The limit ofquantification is 10 ng/mL. Serial monitoring of PEth may behelpful in monitoring alcohol abstinence over time. PEth resultsshould be interpreted in the context of the patient's clinical andbehavioral history.Patients with advanced liver disease may have falsely elevatedPEth concentrations (Carleen CARRASQUILLO et al 2018, Alcoholism Clinical &Experimental Research).This test was developed and its performance characteristicsdetermined by [facility]. It has not been cleared orapproved by the U.S. Food and Drug Administration. This test wasperformed in a CLIA-certified laboratory and is intended forclinical purposes.Performed By: [facility] [place], [place] [address]Ncwxjckfyz Director: Rupert Munoz MD, PhDCLIA Number: [id number] Performed By: #### P ETH ####[facility] [id number] [place] [address] PT panel Coag (PPP)on 2023 INR Coag (PPP) [Relative time] 1.2 {INR} Normal 0.9-1.3 [facility] Comment on above: Order Comment: Speci men Type: BLOOD SPECIMENOrdering Facility: [facility] Address: [address] [place] [address] [place] [id number] Result Comment: Bridgette min K Antagonist (VKA) Therapeutic Range: INR 2 to 3 (Target INR of 2.5)Note: For patients treated with VKA drugs, such as warfarin, the [place] [employer] 2012 Guideline recommends a therapeutic INR range of 2 to 3 (target INR of 2.5). This recommendation includes high-risk patients with antiphospholipid syndrome with previous arterial or venous thromboembolism, current-generation mechanical or bioprosthetic aortic heart valve replacement.Note: Patients with mechanical aortic valve replacement and additional risk factors for thromboembolic events (atrial fibrillation, previous thromboembolism, LV dysfunction, hypercoagulable conditions) or an older generation mechanical AVR (i.e., ball in-Cage) or any mechanical MVR should have a INR therapeutic range of 2.5 to 3.5 (target INR of 3).Sam GH, et al. Chest 2012, 141:7S-47SNishpankajura RA, et al. [facility] 2017, 70: 252-289 Performed By: #### 3 4528-0 ####[facility] [id number] [place] [address] [place] PT Coag (PPP) [Time] 12.2 s Normal 9.7-13.0 [facility] Comment on above: Order Comment: Speci men Type: BLOOD SPECIMENOrdering Facility: [facility] Address: [address] [place] [address] Performed By: #### 3 4528-0 ####[facility] [id number] [address] [place] Vancomycin Crescent SerPl-mCncon 02-16-2024 Vancomycin random [Mass/Vol] 27.3 ug/mL High 10.0-20.0 [facility] Comment on above: Order Comment: Speci men Type: BLOOD SPECIMENOrdering Facility: [facility] Address: [address] [place] [address] Result Comment: Refe rence ranges and high/low indicator flags are provided as general guidelines only. The treating physician must determine appropriate target levels/dosing based on the specific clinical situation. Performed By: #### 4 091-5 ####[facility] [id number] [address] [place] [facility] BY IFA WITH REFLEXon Nuclear Ab Ql (S) Negative Normal Negative [facility] Comment on above: Order Comment: Speci men Type: BLOOD SPECIMENOrdering Facility: [facility] Address: [address] [place] [address] Result Comment: Anti -nuclear antibody test is used as an aid in diagnosis of systemic autoimmune diseases. Where positive and clinically warranted, follow-up using disease-specific testing is recommended. Low positive titers are not uncommon with advanced age, certain chronic infections, and malignancies among others.Test methodology: Indirect fluorescence immunoassay (IFA) using HEp-2 cells. Performed By: #### 1 7284-1, 62575-2, ANAIFR ####[facility] LABCL[facility] [id number] [place] [address] [place] CBC panel Auto (Bld)on 02-14 Erythrocyte distribution width (RBC) [Ratio] 15.6 % High 11.5-15.0 [facility] Comment on above: Order Comment: Speci men Type: BLOOD SPECIMENOrdering Facility: [facility] Address: [address] [place] [address] Performed By: #### 1 6128-1, 27421-2, 41966-6, 5-3, 15329-2, 33638-0, 39079-6 ####[facility] [id number] [place] [address] [place] Hematocrit (Bld) [Volume fraction] 22.7 % Low 39.0-51.0 [facility] Comment on above: Order Comment: Speci men Type: BLOOD SPECIMENOrdering Facility: [facility] Address: [address] [place] [address] Performed By: #### 1 6128-1, 06174-7, 01378-3, 5-3, 84533-8, 05304-8, 16963-7 ####[facility] [id number] [place] [address] [place] Hemoglobin (Bld) [Mass/Vol] 7.5 g/dL Low 13.0-17.0 [facility] Comment on above: Order Comment: Speci men Type: BLOOD SPECIMENOrdering Facility: [facility] Address: [address] [place] [address] Performed By: #### 1 6128-1, 99485-8, 90069-3, 5-3, 50186-8, 98298-9, 32058-8 ####[facility] [id number] [place] [address] [place] MCH (RBC) [Entitic mass] 30.6 pg Normal 26.0-34.0 [facility] Comment on above: Order Comment: Speci men Type: BLOOD SPECIMENOrdering Facility: [facility] Address: [address] [place] [address] Performed By: #### 1 6128-1, 52711-6, 80314-7, 5-3, 49880-4, 14872-9, 24035-5 ####[facility] [id number] [place] [address] [place] MCHC (RBC) [Mass/Vol] 33.0 g/dL Normal 30.5-36.0 [facility] Comment on above: Order Comment: Speci men Type: BLOOD SPECIMENOrdering Facility: [facility] Address: [address] [place] [address] Performed By: #### 1 6128-1, 39339-3, 79934-8, 5-3, 96749-0, 14049-9, 21730-5 ####[facility] [id number] [place] [address] [place] MCV (RBC) [Entitic vol] 92.7 fL Normal 80.0-100.0 [facility] Comment on above: Order Comment: Speci men Type: BLOOD SPECIMENOrdering Facility: [facility] Address: [address] [place] [address] Performed By: #### 1 6128-1, 84011-3, 26434-6, 5-3, 37297-8, 47286-2, 77675-3 ####[facility] [id number] [place] [address] [place] Nucleated RBC (Bld) [#/Vol] 10*3/uL Normal <0.01 [facility] Comment on above: Order Comment: Speci men Type: BLOOD SPECIMENOrdering Facility: [facility] Address: [address] [place] [address] Performed By: #### 1 6128-1, 18523-1, 24458-5, 5195-3, 54815-8, 17205-1, 08475-6 ####[facility] [id number] [place] [id number] [place] Platelet mean volume (Bld) [Entitic vol] 10.7 fL Normal 9.0-12.7 [facility] Comment on above: Order Comment: Speci men Type: BLOOD SPECIMENOrdering Facility: [facility] Address: [address] [place] [address] Performed By: #### 1 6128-1, 83530-1, 79274-0, 5-3, 63574-6, 04116-7, 06381-7 ####[facility] [id number] [place] [address] [place] Platelets (Bld) [#/Vol] 164 10*3/uL Normal 150-400 [facility] Comment on above: Order Comment: Speci men Type: BLOOD SPECIMENOrdering Facility: [facility] Address: [address] [place] [address] Performed By: #### 1 6128-1, 98900-7, 87144-6, 5-3, 22964-9, 96249-1, 11512-0 ####[facility] [id number] [place] [address] [place] RBC (Bld) [#/Vol] 2.45 10*6/uL Low 4.20-6.00 [facility] Comment on above: Order Comment: Speci men Type: BLOOD SPECIMENOrdering Facility: [facility] Address: [address] [place] [address] Performed By: #### 1 6128-1, 89579-2, 87067-1, 5195-3, 48055-7, 21972-4, 23232-9 ####[facility] [id number] [place] [id number] [place] WBC (Bld) [#/Vol] 3.71 10*3/uL Normal 3.70-11.00 [facility] Comment on above: Order Comment: Speci men Type: BLOOD SPECIMENOrdering Facility: [facility] Address: [address] [place] [address] Performed By: #### 1 6128-1, 27171-7, 97206-4, 5195-3, 31847-3, 71094-0, 56622-2 ####[facility] [id number] [place] [address] [place] CNPNon 02-15-2024 CNPN Normal [facility] Ceruloplasmin SerPl-mCncon 0 02-15-2024 Ceruloplasmin [Mass/Vol] 13 mg/dL Low 15-30 [facility] Comment on above: Order Comment: Speci men Type: BLOOD SPECIMENOrdering Facility: [facility] Address: [address] [place] [address] Performed By: #### 2 064-4, 46429-0, 2472-9 ####[facility] [id number] [place] [address] [place] Comprehensive metabolic 2000 panelon 02-15-2024 Albumin [Mass/Vol] 1.9 g/dL Low 3.9-4.9 [facility] Comment on above: Order Comment: Speci men Type: BLOOD SPECIMENOrdering Facility: [facility] Address: [address] [place] [address] Performed By: #### 2 064-4, 70972-2, 2472-9 ####[facility] [id number] [place] [address] [place] ALP [Catalytic activity/Vol] 740 U/L High 38-113 [facility] Comment on above: Order Comment: Speci men Type: BLOOD SPECIMENOrdering Facility: [facility] Address: [address] [place] [address] Performed By: #### 2 064-4, 32259-4, 2472-08 ####[facility] [id number] [place] [id number] [place] ALT [Catalytic activity/Vol] 24 U/L Normal 10-54 [facility] Comment on above: Order Comment: Speci men Type: BLOOD SPECIMENOrdering Facility: [facility] Address: [address] [place] [address] Performed By: #### 2 064-4, 24910-5, 2472-08 ####[facility] [id number] [place] [address] [place] Anion gap [Moles/Vol] 3 mmol/L Low 9-18 [facility] Comment on above: Order Comment: Speci men Type: BLOOD SPECIMENOrdering Facility: [facility] Address: [address] [place] [address] Performed By: #### 2 064-4, , 2472-08 ####[facility] [id number] [place] [address] [place] AST [Catalytic activity/Vol] 53 U/L High 14-40 [facility] Comment on above: Order Comment: Speci men Type: BLOOD SPECIMENOrdering Facility: [facility] Address: [address] [place] [address] Performed By: #### 2 064-4, 78844-6, 2472-08 ####[facility] [id number] [place] [id number] [place] Bilirubin [Mass/Vol] 0.6 mg/dL Normal 0.2-1.3 [facility] Comment on above: Order Comment: Speci men Type: BLOOD SPECIMENOrdering Facility: [facility] Address: [address] [place] [address] Performed By: #### 2 064-4, , 2472-08 ####[facility] [id number] [address] [address] [place] Calcium [Mass/Vol] 8.2 mg/dL Low 8.5-10.2 [facility] Comment on above: Order Comment: Speci men Type: BLOOD SPECIMENOrdering Facility: [facility] Address: [address] [place] [address] Performed By: #### 2 064-4, , 2472-08 ####[facility] [id number] [place] [address] [place] Chloride [Moles/Vol] 106 mmol/L High 97-105 [facility] Comment on above: Order Comment: Speci men Type: BLOOD SPECIMENOrdering Facility: [facility] Address: [address] [place] [address] Performed By: #### 2 064-4, , 2472-08 ####[facility] [id number] [place] [address] [place] CO2 [Moles/Vol] 25 mmol/L Normal 22-30 [facility] Comment on above: Order Comment: Speci men Type: BLOOD SPECIMENOrdering Facility: [facility] Address: [address] [place] [address] Performed By: #### 2 064-4, , 2472-08 ####[facility] [id number] [place] [id number] [place] Creatinine [Mass/Vol] 0.96 mg/dL Normal 0.73-1.22 [facility] Comment on above: Order Comment: Speci men Type: BLOOD SPECIMENOrdering Facility: [facility] Address: [address] [place] [address] Performed By: #### 2 064-4, , 2472-08 ####[facility] [id number] [place] [address] [place] Creatinine and Glomerular filtration rate.predicted panel (S/P/Bld) 109 mL/min/1.73m??? Normal >=60 [facility] Comment on above: Order Comment: Kanu sainz Type: BLOOD SPECIMENOrdering Facility: [facility] Address: [address] [place] [address] Result Comment: Janeth mated Glomerular Filtration Rate (eGFR) is calculated using the 2020 CKD-EPI creatinine equation. This equation utilizes serum creatinine, sex, and age as parameters. The creatinine assay has traceable calibration to isotope dilution-mass spectrometry. Refer to KDIGO guidelines for clinical interpretation. In patients with unstable renal function, e.g. those with acute kidney injury, the eGFR may not accurately reflect actual GFR. Performed By: #### 2 064-4, 80090-0, 9 ####[facility] [id number] [place] [address] [place] Glucose [Mass/Vol] 210 mg/dL High 74-99 [facility] Comment on above: Order Comment: Kanu sainz Type: BLOOD SPECIMENOrdering Facility: [facility] Address: [address] [place] [address] Result Comment: The [place] [employer] (ADA) provides guidance for cutoff values for fasting glucose and random glucose. The ADA defines fasting as no caloric intake for at least 8 hours. Fasting plasma glucose results between 100 to 125 mg/dL indicate increased risk for diabetes (prediabetes).Fasting plasma glucose results greater than or equal to 126 mg/dL meet the criteria for diagnosis of diabetes. In the absence of unequivocal hyperglycemia, results should be confirmed by repeat testing. In a patient with classic symptoms of hyperglycemia or hyperglycemic crisis, random plasma glucose results greater than or equal to 200 mg/dL meet the criteria for diagnosis of diabetes.Reference: Standards of Medical Care in Diabetes 2016, [place] [employer]. Diabetes Care. 2016.39(Suppl 1). Performed By: #### 2 064-4, 98863-4, 2471-9 ####[facility] [id number] [place] [address] [place] Potassium [Moles/Vol] 4.6 mmol/L Normal 3.7-5.1 [facility] Comment on above: Order Comment: Speci men Type: BLOOD SPECIMENOrdering Facility: [facility] Address: [address] [place] [address] Performed By: #### 2 064-4, 84285-5, 2472-08 ####[facility] [id number] [place] [address] [place] Protein [Mass/Vol] 6.2 g/dL Low 6.3-8.0 [facility] Comment on above: Order Comment: Speci men Type: BLOOD SPECIMENOrdering Facility: [facility] Address: [address] [place] [address] Performed By: #### 2 064-4, , 2472-08 ####[facility] [id number] [place] [address] [place] Sodium [Moles/Vol] 134 mmol/L Low 136-144 [facility] Comment on above: Order Comment: Speci men Type: BLOOD SPECIMENOrdering Facility: [facility] Address: [address] [place] [address] Performed By: #### 2 064-4, 20239-5, 2472-08 ####[facility] [id number] [place] [address] [place] Urea nitrogen [Mass/Vol] 30 mg/dL High 9-24 [facility] Comment on above: Order Comment: Speci men Type: BLOOD SPECIMENOrdering Facility: [facility] Address: [address] [place] [address] Performed By: #### 2 064-4, 03546-4, 2472-08 ####[facility] [id number] [place] [id number] [place] HAV IgM Ser Qlon 02-15-2024 HAV IgM Ql (S) Negative Normal Negative [facility] Comment on above: Order Comment: Speci alistair Type: BLOOD SPECIMENOrdering Facility: [facility] Address: [address] [place] [address] Result Comment: No e vidence of recent infection with Hepatitis A virus. Performed By: #### 1 6128-1, 42477-4, 82410-9, 5195-3, 94731-5, 28999-3, 54767-9 ####[facility] [id number] [place] [address] [place] HBV core Ab Ser Qlon 024 HBV core Ab Ql (S) Negative Normal Negative [facility] Comment on above: Order Comment: Kanu sainz Type: BLOOD SPECIMENOrdering Facility: [facility] Address: [address] [place] [address] Result Comment: No e vidence of current or past infection with Hepatitis B virus. Should recent infection be suspected, repeat testing may be considered 3-4 weeks after this draw. Performed By: #### 1 6128-1, 32573-5, 73903-4, 5195-3, 49930-0, 27116-5, 82851-0 ####[facility] [id number] [place] [address] [place] HBV core IgM Ser Qlon 2023 HBV core IgM Ql (S) Negative Normal Negative [facility] Comment on above: Order Comment: Speci men Type: BLOOD SPECIMENOrdering Facility: [facility] Address: [address] [place] [address] Result Comment: No e vidence of recent infection with Hepatitis B virus. Should recent infection be suspected, repeat testing may be considered 3-4 weeks after this draw. Performed By: #### 1 6128-1, 40686-6, 99119-3, 5195-3, 64988-9, 96203-9, 53487-7 ####[facility] [id number] [place] [address] [place] HBV surface Ab Ql (S)on 01-29 HBV surface Ab Qn (S) <8.00 Normal [facility] Comment on above: Order Comment: Speci men Type: BLOOD SPECIMENOrdering Facility: [facility] Address: [address] [place] [address] Result Comment: <8 m IU/mL: No serological evidence of immunity to Hepatitis B Virus.>/= 8 to <12 mIU/mL: No serological evidence of immunity to Hepatitis B Virus.>/= 12 mIU/mL: Consistent with serological evidence of immunity to Hepatitis B Virus. Performed By: #### 1 6128-1, 80031-7, 96427-9, 5195-3, 43130-7, 06447-5, 00159-2 ####[facility] [id number] [place] [address] [place] HBV surface Ab Ser Qlon 01-29 HBV surface Ab Ql (S) Negative Normal [facility] Comment on above: Order Comment: Speci men Type: BLOOD SPECIMENOrdering Facility: [facility] Address: [address] [place] [address] Result Comment: No s erological evidence of immunity to Hepatitis B Virus. Performed By: #### 1 6128-1, 89682-0, 32958-2, 5195-3, 52435-5, 80115-4, 50916-1 ####[facility] [id number] [place] [address] [place] HBV surface Ag Ser Qlon 01-29 HBV surface Ag Ql (S) Negative Normal Negative [facility] Comment on above: Order Comment: Speci men Type: BLOOD SPECIMENOrdering Facility: [facility] Address: [address] [place] [address] Performed By: #### 1 6128-1, 60451-2, 39306-0, 5195-3, 44572-6, 31542-9, 40419-6 ####[facility] [id number] [place] [id number] [place] HCV Ab Ser Qlon 02-15-2024 HCV Ab Ql (S) Negative Normal Negative [facility] Comment on above: Order Comment: Speci men Type: BLOOD SPECIMENOrdering Facility: [facility] Address: [address] [place] [address] Result Comment: The result suggests no evidence of active infection with Hepatitis C virus. Should recent infection be suspected, repeat testing may be considered 4-6 weeks after this draw. Performed By: #### 1 6128-1, 43541-2, 37902-8, 5195-3, 08495-6, 58733-7, 36570-0 ####[facility] [id number] [place] [address] [place] IgG SerPl-mCncon 02-15-2024 IgG [Mass/Vol] 3614 mg/dL High 700-1600 [facility] Comment on above: Order Comment: Speci men Type: BLOOD SPECIMENOrdering Facility: [facility] Address: [address] [place] [address] Performed By: #### 2 465-3 ####[facility] [id number] [place] [address] [place] IgM SerPl-mCncon 02-15-2024 IgM [Mass/Vol] 104 mg/dL Normal 40-230 [facility] Comment on above: Order Comment: Speci men Type: BLOOD SPECIMENOrdering Facility: [facility] Address: [address] [place] [address] Performed By: #### 2 064-4, 54100-2, 2472-9 ####[facility] [id number] [place] [address] [place] Mitochondria Ab IF Ql (S)on 02-15-2024 Mitochondria M2 Ab IA Qn (S) 7.3 Units Normal <=20.0 [facility] Comment on above: Order Comment: Speci men Type: BLOOD SPECIMENOrdering Facility: [facility] Address: [address] [place] [address] Performed By: #### 1 7284-1, 92202-9, ANAIFR ####[facility] [id number] [place] [address] [place] Mitochondria M2 Ab Ql (S) Negative Normal Negative [facility] Comment on above: Order Comment: Speci men Type: BLOOD SPECIMENOrdering Facility: [facility] Address: [address] [place] [address] Result Comment: Anti -mitochondrial antibody test is used as an aid in diagnosis of primary biliary cholangitis. Clinical correlation is required. Performed By: #### 1 7284-1, 22537-2, ANAIFR ####[facility] [id number] [place] [address] [place] Smooth muscle Ab Ql (S)on ACTIN SMOOTH MUSCLE IGG QUALITATIVE Negative Normal Negative [facility] Comment on above: Order Comment: Speci men Type: BLOOD SPECIMENOrdering Facility: [facility] Address: [address] [place] [address] Performed By: #### 1 7284-1, 69424-3, ANAIFR ####[facility] [id number] [place] [address] [place] ACTIN SMOOTH MUSCLE IGG QUANTITATIVE 9 Units Normal <20 [facility] Comment on above: Order Comment: Speci men Type: BLOOD SPECIMENOrdering Facility: [facility] Address: [address] [place], [place] [id number] Performed By: #### 1 7284-1, 87117-3, ANAIFR ####[facility] [id number] [place] [id number] [place] CASE MANAGEMon 02-14-2024 CASE MANAGEM Normal [facility] CONSULTon 02-14-2024 CONSULT Normal [facility] metabolic 2000 panelon 02-14-2024 Albumin [Mass/Vol] 1.6 g/dL Low 3.9-4.9 [facility] Comment on above: Order Comment: Speci men Type: BLOOD SPECIMENOrdering Facility: [facility] Address: [address] [place] [address] Performed By: #### 2 4323-8, 2323-2 ####[facility] [id number] [facility] [place] [address] [place] ALP [Catalytic activity/Vol] 914 U/L High 38-113 [facility] Comment on above: Order Comment: Speci men Type: BLOOD SPECIMENOrdering Facility: [facility] Address: [address] [place] [address] Performed By: #### 2 4323-8, 2323-2 ####[facility] [id number] [place] [address] [place] ALT [Catalytic activity/Vol] 29 U/L Normal 10-54 [facility] Comment on above: Order Comment: Speci men Type: BLOOD SPECIMENOrdering Facility: [facility] Address: [address] [place] [address] Performed By: #### 2 4323-8, 2 ####[facility] [id number] [place] [address] [place] Anion gap [Moles/Vol] 8 mmol/L Low 9-18 [facility] Comment on above: Order Comment: Speci men Type: BLOOD SPECIMENOrdering Facility: [facility] Address: [address] [place] [address] Performed By: #### 2 4323-8, 2 ####[facility] [id number] [place] [address] [place] AST [Catalytic activity/Vol] 60 U/L High 14-40 [facility] Comment on above: Order Comment: Speci men Type: BLOOD SPECIMENOrdering Facility: [facility] Address: [address] [place] [id number] Performed By: #### 2 4323-8, 2324-01 ####[facility] [id number] [address] [address] [place] Bilirubin [Mass/Vol] 0.8 mg/dL Normal 0.2-1.3 [facility] Comment on above: Order Comment: Speci men Type: BLOOD SPECIMENOrdering Facility: [facility] Address: [address] [place] [address] Performed By: #### 2 4323-8, 2324-01 ####[facility] [id number] [place] [address] [place] Calcium [Mass/Vol] 8.1 mg/dL Low 8.5-10.2 [facility] Comment on above: Order Comment: Speci men Type: BLOOD SPECIMENOrdering Facility: [facility] Address: [address] [place] [address] Performed By: #### 2 4323-8, 2324-01 ####[facility] [id number] [place] [address] [place] Chloride [Moles/Vol] 102 mmol/L Normal 97-105 [facility] Comment on above: Order Comment: Speci men Type: BLOOD SPECIMENOrdering Facility: [facility] Address: [address] [place] [id number] Performed By: #### 2 4323-8, 2324-01 ####[facility] [id number] [place] [address] [place] CO2 [Moles/Vol] 22 mmol/L Normal 22-30 [facility] Comment on above: Order Comment: Speci men Type: BLOOD SPECIMENOrdering Facility: [facility] Address: [address] [place], [place] [address] Performed By: #### 2 4323-8, 2 ####[facility] [id number] [place] [address] [place] Creatinine [Mass/Vol] 1.02 mg/dL Normal 0.73-1.22 [facility] Comment on above: Order Comment: Speci men Type: BLOOD SPECIMENOrdering Facility: [facility] Address: [address] [place] [address] Performed By: #### 2 4323-8, 2324-01 ####[facility] [id number] [place] [address] [place] Creatinine and Glomerular filtration rate.predicted panel (S/P/Bld) 101 mL/min/1.73m??? Normal >=60 [facility] Comment on above: Order Comment: [facility] Type: BLOOD SPECIMENOrdering Facility: [facility] Address: [address] [place] [address] Result Comment: Janeth mated Glomerular Filtration Rate (eGFR) is calculated using the 2020 CKD-EPI creatinine equation. This equation utilizes serum creatinine, sex, and age as parameters. The creatinine assay has traceable calibration to isotope dilution-mass spectrometry. Refer to KDIGO guidelines for clinical interpretation. In patients with unstable renal function, e.g. those with acute kidney injury, the eGFR may not accurately reflect actual GFR. Performed By: #### 2 4323-8, 2324-01 ####[facility] [id number] [place] [address] [place] Glucose [Mass/Vol] 299 mg/dL High 74-99 [facility] Comment on above: Order Comment: Paruli alistair Type: BLOOD SPECIMENOrdering Facility: [facility] Address: [address] [place] [address] Result Comment: The [place] [employer] (ADA) provides guidance for cutoff values for fasting glucose and random glucose. The ADA defines fasting as no caloric intake for at least 8 hours. Fasting plasma glucose results between 100 to 125 mg/dL indicate increased risk for diabetes (prediabetes).Fasting plasma glucose results greater than or equal to 126 mg/dL meet the criteria for diagnosis of diabetes. In the absence of unequivocal hyperglycemia, results should be confirmed by repeat testing. In a patient with classic symptoms of hyperglycemia or hyperglycemic crisis, random plasma glucose results greater than or equal to 200 mg/dL meet the criteria for diagnosis of diabetes.Reference: Standards of Medical Care in Diabetes 2016, [place] [employer]. Diabetes Care. 2016.39(Suppl 1). Performed By: #### 2 4323-07, 2324-01 ####[facility] [id number] [place] [address] [place] Potassium [Moles/Vol] 4.9 mmol/L Normal 3.7-5.1 [facility] Comment on above: Order Comment: Speci men Type: BLOOD SPECIMENOrdering Facility: [facility] Address: [address] [place] [address] Performed By: #### 2 4323-07, 2324-01 ####[facility] [id number] [place] [address] [place] Protein [Mass/Vol] 7.2 g/dL Normal 6.3-8.0 [facility] Comment on above: Order Comment: Speci alistair Type: BLOOD SPECIMENOrdering Facility: [facility] Address: [address] [place] [address] Performed By: #### 2 4323-07, 2324-01 ####[facility] [id number] [place] [address] [place] Sodium [Moles/Vol] 132 mmol/L Low 136-144 [facility] Comment on above: Order Comment: Speci men Type: BLOOD SPECIMENOrdering Facility: [facility] Address: [address] [place] [address] Performed By: #### 2 4323-07, 2324-01 ####[facility] [id number] [place] [address] [place] Urea nitrogen [Mass/Vol] 30 mg/dL High 9-24 [facility] Comment on above: Order Comment: Speci men Type: BLOOD SPECIMENOrdering Facility: [facility] Address: [address] [place] [address] Performed By: #### 2 4323-8, 2324-2 ####[facility] [id number] [place] [address] [place] GGT SerPl-cCncon 02-14-2024 Gamma glutamyl transferase [Catalytic activity/Vol] 351 U/L High 10-70 [facility] Comment on above: Order Comment: Speci men Type: BLOOD SPECIMENOrdering Facility: [facility] Address: [address] [place] [address] Performed By: #### 2 4323-8, 2324-2 ####[facility] [id number] [place] [address] [place] Gas and Carbon monoxide pane l (BldV)on 02-14-2024 Base excess Calc (BldV) [Moles/Vol] 2 mmol/L Normal 0-2 [facility] Comment on above: Order Comment: Speci men Type: VENOUS BLOOD SPECIMENOrdering Facility: [facility] Address: [address] [place] [address] Performed By: #### 2 4344-4 ####[facility] [id number] [place] [address] [place] Body temperature 99.14 [degF] Normal [facility] Comment on above: Order Comment: Speci men Type: VENOUS BLOOD SPECIMENOrdering Facility: [facility] Address: [address] [place] [address] Performed By: #### 2 4344-4 ####[facility] [id number] [place] [address] [place] Calcium.ionized (Bld) [Mass/Vol] 1.25 mmol/L Normal 1.08-1.30 [facility] Comment on above: Order Comment: Speci men Type: VENOUS BLOOD SPECIMENOrdering Facility: [facility] Address: [address] [place] [address] Performed By: #### 2 4344-4 ####[facility] [id number] [place] [address] [place] Calcium.ionized adjusted to pH 7.4 (BldA) [Moles/Vol] 1.20 mmol/L Normal 1.08-1.30 [facility] Comment on above: Order Comment: Speci men Type: VENOUS BLOOD SPECIMENOrdering Facility: [facility] Address: [address] [place] [address] Performed By: #### 2 4344-4 ####[facility] [id number] [place] [address] [place] Carboxyhemoglobin (BldV) [Mass fraction] 1.1 % Normal 0.0-2.0 [facility] Comment on above: Order Comment: Speci men Type: VENOUS BLOOD SPECIMENOrdering Facility: [facility] Address: [address] [place] [address] Result Comment: Carb oxyhemoglobin Reference Range for Smokers: 2.0-8.0% Performed By: #### 2 4344-4 ####[facility] [id number] [place] [address] [place] CO2 (BldV) [Partial pressure] 56 mm[Hg] High 42-55 [facility] Comment on above: Order Comment: Speci men Type: VENOUS BLOOD SPECIMENOrdering Facility: [facility] Address: [address] [place], [place] [address] Performed By: #### 2 4344-4 ####[facility] [id number] [place] [address] [place] CO2 adjusted to patient's actual temperature (BldV) [Partial pressure] 57 mmHg High 42-55 [facility] Comment on above: Order Comment: Speci men Type: VENOUS BLOOD SPECIMENOrdering Facility: [facility] Address: [address] [place] [address] Performed By: #### 2 4344-4 ####[facility] [id number] [place] [address] [place] Glucose [Mass/Vol] 147 mg/dL High 60-105 [facility] Comment on above: Order Comment: Speci men Type: VENOUS BLOOD SPECIMENOrdering Facility: [facility] Address: [address] [place] [address] Performed By: #### 2 4344-4 ####[facility] [id number] [place] [address] [place] HCO3 (Bld) [Moles/Vol] 28 mmol/L Normal 24-28 [facility] Comment on above: Order Comment: Speci men Type: VENOUS BLOOD SPECIMENOrdering Facility: [facility] Address: [address] [place] [address] Performed By: #### 2 4344-4 ####[facility] [id number] [place] [address] [place] Hematocrit (Bld) [Volume fraction] 25.8 % Low 39.0-51.0 [facility] Comment on above: Order Comment: Speci men Type: VENOUS BLOOD SPECIMENOrdering Facility: [facility] Address: [address] [place] [address] Performed By: #### 2 4344-4 ####[facility] [id number] [place] [address] [place] Hemoglobin (Bld) [Mass/Vol] 8.3 g/dL Low 13.0-17.0 [facility] Comment on above: Order Comment: Speci men Type: VENOUS BLOOD SPECIMENOrdering Facility: [facility] Address: [address] [place] [address] Performed By: #### 2 4344-4 ####[facility] [id number] [place] [address] [place] Lactate [Moles/Vol] 1.2 mmol/L Normal 0.5-2.2 [facility] Comment on above: Order Comment: Speci men Type: VENOUS BLOOD SPECIMENOrdering Facility: [facility] Address: [address] [place], [place] [address] Performed By: #### 2 4344-4 ####[facility] [id number] [place] [address] [place] Methemoglobin (Bld) [Mass fraction] 1.2 % Normal 0.0-1.5 [facility] Comment on above: Order Comment: Speci men Type: VENOUS BLOOD SPECIMENOrdering Facility: [facility] Address: [address] [place] [address] Performed By: #### 2 4344-4 ####[facility] [id number] [place] [address] [place] O2 THERAPY RA=Room Air Normal [facility] Comment on above: Order Comment: Speci men Type: VENOUS BLOOD SPECIMENOrdering Facility: [facility] Address: [address] [place] [address] Performed By: #### 2 4344-4 ####[facility] [id number] [place] [address] [place] Oxygen (BldV) [Partial pressure] 35 mm[Hg] Normal 35-45 [facility] Comment on above: Order Comment: Speci men Type: VENOUS BLOOD SPECIMENOrdering Facility: [facility] Address: [address] [place], [place] [address] Performed By: #### 2 4344-4 ####[facility] [id number] [place] [address] [place] Oxygen adjusted to patient's actual temperature (BldV) [Partial pressure] 36 mmHg Normal 35-45 [facility] Comment on above: Order Comment: Speci men Type: VENOUS BLOOD SPECIMENOrdering Facility: [facility] Address: [address] [place] [address] Performed By: #### 2 4344-4 ####[facility] [id number] [address] [address] [place] Oxygen saturation in Venous blood 53 % Low 60-85 [facility] Comment on above: Order Comment: Speci men Type: VENOUS BLOOD SPECIMENOrdering Facility: [facility] Address: [address] [place], [place] [address] Performed By: #### 2 4344-4 ####[facility] [id number] [address] [address] [place] Oxyhemoglobin (BldV) [Mass fraction] 51 % Low 60-85 [facility] Comment on above: Order Comment: Speci men Type: VENOUS BLOOD SPECIMENOrdering Facility: [facility] Address: [address] [place], [place] [address] Performed By: #### 2 4344-4 ####[facility] [id number] [place] [address] [place] pH (BldV) 7.32 [pH] Normal 7.32-7.42 [facility] Comment on above: Order Comment: Speci men Type: VENOUS BLOOD SPECIMENOrdering Facility: [facility] Address: [address] [place], [place] [address] Performed By: #### 2 4344-4 ####[facility] [id number] [address] [address] [place] pH adjusted to patient's actual temperature (BldV) 7.32 Normal 7.32-7.42 [facility] Comment on above: Order Comment: Speci men Type: VENOUS BLOOD SPECIMENOrdering Facility: [facility] Address: [address] [place], [place] [address] Performed By: #### 2 4344-4 ####[facility] [id number] [place] [address] [place] Potassium [Moles/Vol] 4.5 mmol/L Normal 3.5-5.0 [facility] Comment on above: Order Comment: Speci men Type: VENOUS BLOOD SPECIMENOrdering Facility: [facility] Address: [address] [place] [address] Performed By: #### 2 4344-4 ####[facility] [id number] [place] [address] [place] Sodium [Moles/Vol] 137 mmol/L Normal 136-144 [facility] Comment on above: Order Comment: Speci men Type: VENOUS BLOOD SPECIMENOrdering Facility: [facility] Address: [address] [place] [address] Performed By: #### 2 4344-4 ####[facility] [id number] [place] [address] [place] Base excess Calc (BldV) [Moles/Vol] 0 mmol/L Normal 0-2 [facility] Comment on above: Order Comment: Speci men Type: VENOUS BLOOD SPECIMENOrdering Facility: [facility] Address: [address] [place] [address] Performed By: #### 2 4344-4 ####[facility] [id number] [place] [address] [place] Body temperature 98.6 [degF] Normal [facility] Comment on above: Order Comment: Speci men Type: VENOUS BLOOD SPECIMENOrdering Facility: [facility] Address: [address] [place] [address] Performed By: #### 2 4344-4 ####[facility] [id number] [place] [address] [place] Calcium.ionized (Bld) [Mass/Vol] 1.24 mmol/L Normal 1.08-1.30 [facility] Comment on above: Order Comment: Speci men Type: VENOUS BLOOD SPECIMENOrdering Facility: [facility] Address: [address] [place] [address] Performed By: #### 2 4344-4 ####[facility] [id number] [place] [address] [place] Calcium.ionized adjusted to pH 7.4 (BldA) [Moles/Vol] 1.20 mmol/L Normal 1.08-1.30 [facility] Comment on above: Order Comment: Speci men Type: VENOUS BLOOD SPECIMENOrdering Facility: [facility] Address: [address] [place] [address] Performed By: #### 2 4344-4 ####[facility] [id number] [place] [address] [place] Carboxyhemoglobin (BldV) [Mass fraction] 0.8 % Normal 0.0-2.0 [facility] Comment on above: Order Comment: Speci men Type: VENOUS BLOOD SPECIMENOrdering Facility: [facility] Address: [address] [place] [address] Result Comment: Carb oxyhemoglobin Reference Range for Smokers: 2.0-8.0% Performed By: #### 2 4344-4 ####[facility] [id number] [place] [address] [place] CO2 (BldV) [Partial pressure] 48 mm[Hg] Normal 42-55 [facility] Comment on above: Order Comment: Speci men Type: VENOUS BLOOD SPECIMENOrdering Facility: [facility] Address: [address] [place] [address] Performed By: #### 2 4344-4 ####[facility] [id number] [place] [address] [place] Glucose [Mass/Vol] 293 mg/dL High 60-105 [facility] Comment on above: Order Comment: Speci men Type: VENOUS BLOOD SPECIMENOrdering Facility: [facility] Address: [address] [place] [address] Performed By: #### 2 4344-4 ####[facility] [id number] [place] [address] [place] HCO3 (Bld) [Moles/Vol] 25 mmol/L Normal 24-28 [facility] Comment on above: Order Comment: Speci men Type: VENOUS BLOOD SPECIMENOrdering Facility: [facility] Address: [address] [place] [address] Performed By: #### 2 4344-4 ####[facility] [id number] [place] [address] [place] Hematocrit (Bld) [Volume fraction] 30.5 % Low 39.0-51.0 [facility] Comment on above: Order Comment: Speci men Type: VENOUS BLOOD SPECIMENOrdering Facility: [facility] Address: [address] [place] [address] Performed By: #### 2 4344-4 ####[facility] [id number] [place] [address] [place] Hemoglobin (Bld) [Mass/Vol] 9.9 g/dL Low 13.0-17.0 [facility] Comment on above: Order Comment: Speci men Type: VENOUS BLOOD SPECIMENOrdering Facility: [facility] Address: [address] [place] [address] Performed By: #### 2 4344-4 ####[facility] [id number] [place] [address] [place] Lactate [Moles/Vol] 2.9 mmol/L High 0.5-2.2 [facility] Comment on above: Order Comment: Speci men Type: VENOUS BLOOD SPECIMENOrdering Facility: [facility] Address: [address] [place] [address] Performed By: #### 2 4344-4 ####[facility] [id number] [address] [address] [place] Methemoglobin (Bld) [Mass fraction] 0.9 % Normal 0.0-1.5 [facility] Comment on above: Order Comment: Speci men Type: VENOUS BLOOD SPECIMENOrdering Facility: [facility] Address: [address] [place], [place] [address] Performed By: #### 2 4344-4 ####[facility] [id number] [place] [id number] [place] O2 THERAPY RA=Room Air Normal [facility] Comment on above: Order Comment: Speci men Type: VENOUS BLOOD SPECIMENOrdering Facility: [facility] Address: [address] [place], [place] [address] Performed By: #### 2 4344-4 ####[facility] [id number] [place] [address] [place] Oxygen (BldV) [Partial pressure] 21 mm[Hg] Low 35-45 [facility] Comment on above: Order Comment: Speci men Type: VENOUS BLOOD SPECIMENOrdering Facility: [facility] Address: [address] [place], [place] [address] Performed By: #### 2 4344-4 ####[facility] [id number] [place] [id number] [place] Oxygen saturation in Venous blood 25 % Low 60-85 [facility] Comment on above: Order Comment: Speci men Type: VENOUS BLOOD SPECIMENOrdering Facility: [facility] Address: [address] [place] [address] Performed By: #### 2 4344-4 ####[facility] [id number] [place] [id number] [place] Oxyhemoglobin (BldV) [Mass fraction] 24 % Low 60-85 [facility] Comment on above: Order Comment: Speci men Type: VENOUS BLOOD SPECIMENOrdering Facility: [facility] Address: [address] [place] [address] Performed By: #### 2 4344-4 ####[facility] [id number] [place] [address] [place] pH (BldV) 7.34 [pH] Normal 7.32-7.42 [facility] Comment on above: Order Comment: Speci men Type: VENOUS BLOOD SPECIMENOrdering Facility: [facility] Address: [address] [place] [address] Performed By: #### 2 4344-4 ####[facility] [id number] [place] [address] [place] Potassium [Moles/Vol] 4.9 mmol/L Normal 3.5-5.0 [facility] Comment on above: Order Comment: Speci men Type: VENOUS BLOOD SPECIMENOrdering Facility: [facility] Address: [address] [place] [address] Performed By: #### 2 4344-4 ####[facility] [id number] [place] [address] [place] Sodium [Moles/Vol] 134 mmol/L Low 136-144 [facility] Comment on above: Order Comment: Speci men Type: VENOUS BLOOD SPECIMENOrdering Facility: [facility] Address: [address] [place] [address] Performed By: #### 2 4344-4 ####[facility] [id number] [place] [id number] [place] Basic metabolic 2000 panelon 02-13-2024 Anion gap [Moles/Vol] 3 mmol/L Low 9-18 [facility] Comment on above: Order Comment: Speci men Type: BLOOD SPECIMENOrdering Facility: [facility] Address: [address] [place] [address] Performed By: #### 2 4321-2 ####[facility] [id number] [place] [address] [place] Calcium [Mass/Vol] 8.3 mg/dL Low 8.5-10.2 [facility] Comment on above: Order Comment: Speci men Type: BLOOD SPECIMENOrdering Facility: [facility] Address: [address] [place] [address] Performed By: #### 2 4321-2 ####[facility] [id number] [place] [address] [place] Chloride [Moles/Vol] 102 mmol/L Normal 97-105 [facility] Comment on above: Order Comment: Speci men Type: BLOOD SPECIMENOrdering Facility: [facility] Address: [address] [place] [address] Performed By: #### 2 4321-2 ####[facility] [id number] [place] [address] [place] CO2 [Moles/Vol] 25 mmol/L Normal 22-30 [facility] Comment on above: Order Comment: Speci men Type: BLOOD SPECIMENOrdering Facility: [facility] Address: [address] [place] [address] Performed By: #### 2 4321-2 ####[facility] [id number] [place] [address] [place] Creatinine [Mass/Vol] 1.03 mg/dL Normal 0.73-1.22 [facility] Comment on above: Order Comment: Speci men Type: BLOOD SPECIMENOrdering Facility: [facility] Address: [address] [place] [address] Performed By: #### 2 4321-2 ####[facility] [id number] [place] [address] [place] Creatinine and Glomerular filtration rate.predicted panel (S/P/Bld) 100 mL/min/1.73m??? Normal >=60 [facility] Comment on above: Order Comment: Kanu sainz Type: BLOOD SPECIMENOrdering Facility: [facility] Address: [address] [place] [address] Result Comment: Janeth mated Glomerular Filtration Rate (eGFR) is calculated using the 2020 CKD-EPI creatinine equation. This equation utilizes serum creatinine, sex, and age as parameters. The creatinine assay has traceable calibration to isotope dilution-mass spectrometry. Refer to KDIGO guidelines for clinical interpretation. In patients with unstable renal function, e.g. those with acute kidney injury, the eGFR may not accurately reflect actual GFR. Performed By: #### 2 4321-2 ####[facility] [id number] [place] [address] [place] Glucose [Mass/Vol] 142 mg/dL High 74-99 [facility] Comment on above: Order Comment: Kanu sainz Type: BLOOD SPECIMENOrdering Facility: [facility] Address: [address] [place] [address] Result Comment: The [place] [employer] (ADA) provides guidance for cutoff values for fasting glucose and random glucose. The ADA defines fasting as no caloric intake for at least 8 hours. Fasting plasma glucose results between 100 to 125 mg/dL indicate increased risk for diabetes (prediabetes).Fasting plasma glucose results greater than or equal to 126 mg/dL meet the criteria for diagnosis of diabetes. In the absence of unequivocal hyperglycemia, results should be confirmed by repeat testing. In a patient with classic symptoms of hyperglycemia or hyperglycemic crisis, random plasma glucose results greater than or equal to 200 mg/dL meet the criteria for diagnosis of diabetes.Reference: Standards of Medical Care in Diabetes 2016, [place] [employer]. Diabetes Care. 2016.39(Suppl 1). Performed By: #### 2 4321-2 ####[facility] [id number] [place] [address] [place] Potassium [Moles/Vol] 5.3 mmol/L High 3.7-5.1 [facility] Comment on above: Order Comment: Kanu sainz Type: BLOOD SPECIMENOrdering Facility: [facility] Address: [address] [place] [address] Performed By: #### 2 4321-2 ####[facility] [id number] [place] [id number] [place] Sodium [Moles/Vol] 130 mmol/L Low 136-144 [facility] Comment on above: Order Comment: Speci men Type: BLOOD SPECIMENOrdering Facility: [facility] Address: [address] [place] [address] Performed By: #### 2 4321-2 ####[facility] [id number] [place] [address] [place] Urea nitrogen [Mass/Vol] 33 mg/dL High 9-24 [facility] Comment on above: Order Comment: Speci men Type: BLOOD SPECIMENOrdering Facility: [facility] Address: [address] [place] [address] Performed By: #### 2 4321-2 ####[facility] [id number] [place] [id number] [place] CASE MANAGEMon 02-13-2024 CASE MANAGEM Normal [facility] CBC panel Auto (Bld)on 02-12 Erythrocyte distribution width (RBC) [Ratio] 15.1 % High 11.5-15.0 [facility] Comment on above: Order Comment: Speci men Type: BLOOD SPECIMENOrdering Facility: [facility] Address: [address] [place] [address] Performed By: #### 5 8410-2, 5194-3 ####[facility] [id number] [place] [id number] [place] Hematocrit (Bld) [Volume fraction] 29.6 % Low 39.0-51.0 [facility] Comment on above: Order Comment: Speci men Type: BLOOD SPECIMENOrdering Facility: [facility] Address: [address] [place] [address] Performed By: #### 5 8410-2, 5194-3 ####[facility] [id number] [place] [address] [place] Hemoglobin (Bld) [Mass/Vol] 9.6 g/dL Low 13.0-17.0 [facility] Comment on above: Order Comment: Speci men Type: BLOOD SPECIMENOrdering Facility: [facility] Address: [address] [place] [address] Performed By: #### 5 8410-2, 5194-3 ####[facility] [id number] [place] [address] [place] MCH (RBC) [Entitic mass] 30.2 pg Normal 26.0-34.0 [facility] Comment on above: Order Comment: Speci men Type: BLOOD SPECIMENOrdering Facility: [facility] Address: [address] [place] [address] Performed By: #### 5 8410-2, 3 ####[facility] [id number] [place] [address] [place] MCHC (RBC) [Mass/Vol] 32.4 g/dL Normal 30.5-36.0 [facility] Comment on above: Order Comment: Speci men Type: BLOOD SPECIMENOrdering Facility: [facility] Address: [address] [place] [address] Performed By: #### 5 8410-2, 3 ####[facility] [id number] [place] [address] [place] MCV (RBC) [Entitic vol] 93.1 fL Normal 80.0-100.0 [facility] Comment on above: Order Comment: Speci men Type: BLOOD SPECIMENOrdering Facility: [facility] Address: [address] [place] [address] Performed By: #### 5 8410-2, 5194-3 ####[facility] [id number] [place] [address] [place] Nucleated RBC (Bld) [#/Vol] 10*3/uL Normal <0.01 [facility] Comment on above: Order Comment: Speci men Type: BLOOD SPECIMENOrdering Facility: [facility] Address: [address] [place] [address] Performed By: #### 5 8410-2, 5195-3 ####[facility] [id number] [place] [address] [place] Platelet mean volume (Bld) [Entitic vol] 10.6 fL Normal 9.0-12.7 [facility] Comment on above: Order Comment: Speci men Type: BLOOD SPECIMENOrdering Facility: [facility] Address: [address] [place] [address] Performed By: #### 5 8410-2, 5195-3 ####[facility] [id number] [place] [address] [place] Platelets (Bld) [#/Vol] 213 10*3/uL Normal 150-400 [facility] Comment on above: Order Comment: Speci men Type: BLOOD SPECIMENOrdering Facility: [facility] Address: [address] [place] [address] Performed By: #### 5 8410-2, 5-3 ####[facility] [id number] [place] [address] [place] RBC (Bld) [#/Vol] 3.18 10*6/uL Low 4.20-6.00 [facility] Comment on above: Order Comment: Speci men Type: BLOOD SPECIMENOrdering Facility: [facility] Address: [address] [place] [address] Performed By: #### 5 8410-2, 5195-3 ####[facility] [id number] [place] [address] [place] WBC (Bld) [#/Vol] 7.78 10*3/uL Normal 3.70-11.00 [facility] Comment on above: Order Comment: Speci men Type: BLOOD SPECIMENOrdering Facility: [facility] Address: [address] [place] [address] Performed By: #### 5 8410-2, 5195-3 ####[facility] [id number] [place] [address] [place] Erythrocyte distribution width (RBC) [Ratio] 14.9 % Normal 11.5-15.0 [facility] Comment on above: Order Comment: Speci men Type: BLOOD SPECIMENOrdering Facility: [facility] Address: [address] [place] [address] Performed By: #### 5 8410-2 ####[facility] [id number] [place] [address] [place] Hematocrit (Bld) [Volume fraction] 20.7 % Low 39.0-51.0 [facility] Comment on above: Order Comment: Speci men Type: BLOOD SPECIMENOrdering Facility: [facility] Address: [address] [place] [address] Performed By: #### 5 8410-2 ####[facility] [id number] [place] [address] [place] Hemoglobin (Bld) [Mass/Vol] 6.8 g/dL Low 13.0-17.0 [facility] Comment on above: Order Comment: Speci men Type: BLOOD SPECIMENOrdering Facility: [facility] Address: [address] [place] [address] Performed By: #### 5 8410-2 ####[facility] [id number] [place] [address] [place] MCH (RBC) [Entitic mass] 30.5 pg Normal 26.0-34.0 [facility] Comment on above: Order Comment: Speci men Type: BLOOD SPECIMENOrdering Facility: [facility] Address: [address] [place] [address] Performed By: #### 5 8410-2 ####[facility] [id number] [place] [address] [place] MCHC (RBC) [Mass/Vol] 32.9 g/dL Normal 30.5-36.0 [facility] Comment on above: Order Comment: Speci men Type: BLOOD SPECIMENOrdering Facility: [facility] Address: [address] [place] [address] Performed By: #### 5 8410-2 ####[facility] [id number] [place] [address] [place] MCV (RBC) [Entitic vol] 92.8 fL Normal 80.0-100.0 [facility] Comment on above: Order Comment: Speci men Type: BLOOD SPECIMENOrdering Facility: [facility] Address: [address] [place] [address] Performed By: #### 5 8410-2 ####[facility] [id number] [place] [address] [place] Nucleated RBC (Bld) [#/Vol] 10*3/uL Normal <0.01 [facility] Comment on above: Order Comment: Speci men Type: BLOOD SPECIMENOrdering Facility: [facility] Address: [address] [place] [address] Performed By: #### 5 8410-2 ####[facility] [id number] [place] [address] [place] Platelet mean volume (Bld) [Entitic vol] 10.5 fL Normal 9.0-12.7 [facility] Comment on above: Order Comment: Speci men Type: BLOOD SPECIMENOrdering Facility: [facility] Address: [address] [place] [address] Performed By: #### 5 8410-2 ####[facility] [id number] [address] [address] [place] Platelets (Bld) [#/Vol] 206 10*3/uL Normal 150-400 [facility] Comment on above: Order Comment: Speci men Type: BLOOD SPECIMENOrdering Facility: [facility] Address: [address] [place] [address] Performed By: #### 5 8410-2 ####[facility] [id number] [place] [address] [place] RBC (Bld) [#/Vol] 2.23 10*6/uL Low 4.20-6.00 [facility] Comment on above: Order Comment: Speci men Type: BLOOD SPECIMENOrdering Facility: [facility] Address: [address] [place] [address] Performed By: #### 5 8410-2 ####[facility] [id number] [place] [address] [place] WBC (Bld) [#/Vol] 5.79 10*3/uL Normal 3.70-11.00 [facility] Comment on above: Order Comment: Speci men Type: BLOOD SPECIMENOrdering Facility: [facility] Address: [address] [place] [address] Performed By: #### 5 8410-2 ####[facility] [id number] [place] [address] [place] CONSULT PROGon 02-13-2024 CONSULT PROG Normal [facility] Comprehensive metabolic 2000 panelon 02-13-2024 Albumin [Mass/Vol] 1.3 g/dL Low 3.9-4.9 [facility] Comment on above: Order Comment: Speci men Type: BLOOD SPECIMENOrdering Facility: [facility] Address: [address] [place] [address] Performed By: #### 2 4323-8 ####[facility] [id number] [place] [address] [place] ALP [Catalytic activity/Vol] 810 U/L High 38-113 [facility] Comment on above: Order Comment: Speci men Type: BLOOD SPECIMENOrdering Facility: [facility] Address: [address] [place] [address] Performed By: #### 2 4323-8 ####[facility] [id number] [place] [address] [place] ALT [Catalytic activity/Vol] 23 U/L Normal 10-54 [facility] Comment on above: Order Comment: Speci men Type: BLOOD SPECIMENOrdering Facility: [facility] Address: [address] [place] [address] Performed By: #### 2 4323-8 ####[facility] [id number] [place] [address] [place] Anion gap [Moles/Vol] 6 mmol/L Low 9-18 [facility] Comment on above: Order Comment: Speci men Type: BLOOD SPECIMENOrdering Facility: [facility] Address: [address] [place] [address] Performed By: #### 2 4323-8 ####[facility] [id number] [place] [address] [place] AST [Catalytic activity/Vol] 47 U/L High 14-40 [facility] Comment on above: Order Comment: Speci men Type: BLOOD SPECIMENOrdering Facility: [facility] Address: [address] [place] [address] Performed By: #### 2 4323-8 ####[facility] [id number] [place] [address] [place] Bilirubin [Mass/Vol] 0.6 mg/dL Normal 0.2-1.3 [facility] Comment on above: Order Comment: Speci men Type: BLOOD SPECIMENOrdering Facility: [facility] Address: [address] [place] [address] Performed By: #### 2 4323-8 ####[facility] [id number] [place] [address] [place] Calcium [Mass/Vol] 8.1 mg/dL Low 8.5-10.2 [facility] Comment on above: Order Comment: Speci men Type: BLOOD SPECIMENOrdering Facility: [facility] Address: [address] [place] [address] Performed By: #### 2 4323-8 ####[facility] [id number] [place] [address] [place] Chloride [Moles/Vol] 104 mmol/L Normal 97-105 [facility] Comment on above: Order Comment: Speci men Type: BLOOD SPECIMENOrdering Facility: [facility] Address: [address] [place] [address] Result Comment: Resu lt rechecked. Performed By: #### 2 4323-8 ####[facility] [id number] [place] [address] [place] CO2 [Moles/Vol] 23 mmol/L Normal 22-30 [facility] Comment on above: Order Comment: Speci men Type: BLOOD SPECIMENOrdering Facility: [facility] Address: [address] [place] [address] Result Comment: Resu lt rechecked. Performed By: #### 2 4323-8 ####[facility] [id number] [place] [id number] [place] Creatinine [Mass/Vol] 1.09 mg/dL Normal 0.73-1.22 [facility] Comment on above: Order Comment: Speci men Type: BLOOD SPECIMENOrdering Facility: [facility] Address: [address] [place], [place] [id number] Performed By: #### 2 4323-8 ####[facility] [id number] [place] [address] [place] Creatinine and Glomerular filtration rate.predicted panel (S/P/Bld) 94 mL/min/1.73m??? Normal >=60 [facility] Comment on above: Order Comment: Kanu sainz Type: BLOOD SPECIMENOrdering Facility: [facility] Address: [address] [place] [address] Result Comment: Janeth mated Glomerular Filtration Rate (eGFR) is calculated using the 2020 CKD-EPI creatinine equation. This equation utilizes serum creatinine, sex, and age as parameters. The creatinine assay has traceable calibration to isotope dilution-mass spectrometry. Refer to KDIGO guidelines for clinical interpretation. In patients with unstable renal function, e.g. those with acute kidney injury, the eGFR may not accurately reflect actual GFR. Performed By: #### 2 4323-8 ####[facility] [id number] [place] [address] [place] Glucose [Mass/Vol] 194 mg/dL High 74-99 [facility] Comment on above: Order Comment: Kanu sainz Type: BLOOD SPECIMENOrdering Facility: [facility] Address: [address] [place] [address] Result Comment: The [place] [employer] (ADA) provides guidance for cutoff values for fasting glucose and random glucose. The ADA defines fasting as no caloric intake for at least 8 hours. Fasting plasma glucose results between 100 to 125 mg/dL indicate increased risk for diabetes (prediabetes).Fasting plasma glucose results greater than or equal to 126 mg/dL meet the criteria for diagnosis of diabetes. In the absence of unequivocal hyperglycemia, results should be confirmed by repeat testing. In a patient with classic symptoms of hyperglycemia or hyperglycemic crisis, random plasma glucose results greater than or equal to 200 mg/dL meet the criteria for diagnosis of diabetes.Reference: Standards of Medical Care in Diabetes 2016, [place] [employer]. Diabetes Care. 2016.39(Suppl 1). Performed By: #### 2 4323-8 ####[facility] [id number] [place] [id number] [place] Potassium [Moles/Vol] 5.6 mmol/L High 3.7-5.1 [facility] Comment on above: Order Comment: Speci men Type: BLOOD SPECIMENOrdering Facility: [facility] Address: [address] [place] [address] Performed By: #### 2 4323-8 ####[facility] [id number] [place] [address] [place] Protein [Mass/Vol] 6.1 g/dL Low 6.3-8.0 [facility] Comment on above: Order Comment: Speci men Type: BLOOD SPECIMENOrdering Facility: [facility] Address: [address] [place] [address] Performed By: #### 2 4323-8 ####[facility] [id number] [place] [address] [place] Sodium [Moles/Vol] 133 mmol/L Low 136-144 [facility] Comment on above: Order Comment: Speci men Type: BLOOD SPECIMENOrdering Facility: [facility] Address: [address] [place] [address] Result Comment: Resu lt rechecked. Performed By: #### 2 4323-8 ####[facility] [id number] [place] [address] [place] Urea nitrogen [Mass/Vol] 35 mg/dL High 9-24 [facility] Comment on above: Order Comment: Speci men Type: BLOOD SPECIMENOrdering Facility: [facility] Address: [address] [place] [address] Performed By: #### 2 4323-8 ####[facility] [id number] [place] [address] [place] HBV surface Ag Ser Qlon 03- HBV surface Ag Ql (S) Negative Normal Negative [facility] Comment on above: Order Comment: Speci men Type: BLOOD SPECIMENOrdering Facility: [facility] Address: [address] [place] [address] Performed By: #### 5 8410-2, 5195-3 ####[facility] [id number] [place] [address] [place] CASE MANAGEMon 02-12-2024 CASE MANAGEM Normal [facility] CBC W Auto Differential pane l (Bld)on 02-12-2024 Basophils (Bld) [#/Vol] 0.09 10*3/uL Normal <0.11 [facility] Comment on above: Order Comment: Speci men Type: BLOOD SPECIMENOrdering Facility: [facility] Address: [address] [place] [address] Performed By: #### 5 7021-8 ####[facility] [id number] [place] [address] [place] Basophils/100 WBC (Bld) 1.5 % Normal [facility] Comment on above: Order Comment: Speci men Type: BLOOD SPECIMENOrdering Facility: [facility] Address: [address] [place] [address] Performed By: #### 5 7021-8 ####[facility] [id number] [place] [address] [place] Differential cell count method Nom (Bld) Auto Normal [facility] Comment on above: Order Comment: Speci men Type: BLOOD SPECIMENOrdering Facility: [facility] Address: [address] [place] [address] Performed By: #### 5 7021-8 ####[facility] [id number] [place] [address] [place] Eosinophils (Bld) [#/Vol] 0.41 10*3/uL Normal <0.46 [facility] Comment on above: Order Comment: Speci men Type: BLOOD SPECIMENOrdering Facility: [facility] Address: [address] [place] [address] Performed By: #### 5 7021-8 ####[facility] [id number] [place] [address] [place] Eosinophils/100 WBC (Bld) 6.8 % Normal [facility] Comment on above: Order Comment: Speci men Type: BLOOD SPECIMENOrdering Facility: [facility] Address: [address] [place] [address] Performed By: #### 5 7021-8 ####[facility] [id number] [place] [address] [place] Erythrocyte distribution width (RBC) [Ratio] 15.0 % Normal 11.5-15.0 [facility] Comment on above: Order Comment: Speci men Type: BLOOD SPECIMENOrdering Facility: [facility] Address: [address] [place] [address] Performed By: #### 5 7021-8 ####[facility] [id number] [place] [address] [place] Hematocrit (Bld) [Volume fraction] 23.4 % Low 39.0-51.0 [facility] Comment on above: Order Comment: Speci men Type: BLOOD SPECIMENOrdering Facility: [facility] Address: [address] [place] [address] Performed By: #### 5 7021-8 ####[facility] [id number] [place] [address] [place] Hemoglobin (Bld) [Mass/Vol] 7.6 g/dL Low 13.0-17.0 [facility] Comment on above: Order Comment: Speci men Type: BLOOD SPECIMENOrdering Facility: [facility] Address: [address] [place] [address] Performed By: #### 5 7021-8 ####[facility] [id number] [place] [address] [place] Immature granulocytes (Bld) [#/Vol] 10*3/uL Normal <0.10 [facility] Comment on above: Order Comment: Speci men Type: BLOOD SPECIMENOrdering Facility: [facility] Address: [address] [place] [address] Performed By: #### 5 7021-8 ####[facility] [id number] [place] [address] [place] Immature granulocytes/100 WBC (Bld) 0.3 % Normal [facility] Comment on above: Order Comment: Speci men Type: BLOOD SPECIMENOrdering Facility: [facility] Address: [address] [place] [address] Performed By: #### 5 7021-8 ####[facility] [id number] [place] [address] [place] Lymphocytes (Bld) [#/Vol] 1.39 10*3/uL Normal 1.00-4.00 [facility] Comment on above: Order Comment: Speci men Type: BLOOD SPECIMENOrdering Facility: [facility] Address: [address] [place] [address] Performed By: #### 5 7021-8 ####[facility] [id number] [place] [address] [place] Lymphocytes/100 WBC (Bld) 23.1 % Normal [facility] Comment on above: Order Comment: Speci men Type: BLOOD SPECIMENOrdering Facility: [facility] Address: [address] [place] [address] Performed By: #### 5 7021-8 ####[facility] [id number] [place] [address] [place] MCH (RBC) [Entitic mass] 29.9 pg Normal 26.0-34.0 [facility] Comment on above: Order Comment: Speci men Type: BLOOD SPECIMENOrdering Facility: [facility] Address: [address] [place] [address] Performed By: #### 5 7021-8 ####[facility] [id number] [place] [address] [place] MCHC (RBC) [Mass/Vol] 32.5 g/dL Normal 30.5-36.0 [facility] Comment on above: Order Comment: Speci men Type: BLOOD SPECIMENOrdering Facility: [facility] Address: [address] [place] [address] Performed By: #### 5 7021-8 ####[facility] [id number] [place] [address] [place] MCV (RBC) [Entitic vol] 92.1 fL Normal 80.0-100.0 [facility] Comment on above: Order Comment: Speci men Type: BLOOD SPECIMENOrdering Facility: [facility] Address: [address] [place] [address] Performed By: #### 5 7021-8 ####[facility] [id number] [place] [address] [place] Monocytes (Bld) [#/Vol] 0.53 10*3/uL Normal <0.87 [facility] Comment on above: Order Comment: Speci men Type: BLOOD SPECIMENOrdering Facility: [facility] Address: [address] [place] [address] Performed By: #### 5 7021-8 ####[facility] [id number] [place] [address] [place] Monocytes/100 WBC (Bld) 8.8 % Normal [facility] Comment on above: Order Comment: Speci men Type: BLOOD SPECIMENOrdering Facility: [facility] Address: [address] [place] [address] Performed By: #### 5 7021-8 ####[facility] [id number] [place] [address] [place] Neutrophils (Bld) [#/Vol] 3.59 10*3/uL Normal 1.45-7.50 [facility] Comment on above: Order Comment: Speci men Type: BLOOD SPECIMENOrdering Facility: [facility] Address: [address] [place] [address] Performed By: #### 5 7021-8 ####[facility] [id number] [place] [address] [place] Neutrophils/100 WBC (Bld) 59.5 % Normal [facility] Comment on above: Order Comment: Speci men Type: BLOOD SPECIMENOrdering Facility: [facility] Address: [address] [place] [address] Performed By: #### 5 7021-8 ####[facility] [id number] [place] [address] [place] Nucleated RBC (Bld) [#/Vol] 10*3/uL Normal <0.01 [facility] Comment on above: Order Comment: Speci men Type: BLOOD SPECIMENOrdering Facility: [facility] Address: [address] [place] [address] Performed By: #### 5 7021-8 ####[facility] [id number] [place] [address] [place] Nucleated RBC/100 WBC (Bld) [Ratio] 0.0 /100 WBC Normal [facility] Comment on above: Order Comment: Speci men Type: BLOOD SPECIMENOrdering Facility: [facility] Address: [address] [place] [address] Performed By: #### 5 7021-8 ####[facility] [id number] [place] [address] [place] Platelet mean volume (Bld) [Entitic vol] 9.9 fL Normal 9.0-12.7 [facility] Comment on above: Order Comment: Speci men Type: BLOOD SPECIMENOrdering Facility: [facility] Address: [address] [place] [address] Performed By: #### 5 7021-8 ####[facility] [id number] [place] [address] [place] Platelets (Bld) [#/Vol] 204 10*3/uL Normal 150-400 [facility] Comment on above: Order Comment: Speci men Type: BLOOD SPECIMENOrdering Facility: [facility] Address: [address] [place] [address] Performed By: #### 5 7021-8 ####[facility] [id number] [place] [address] [place] RBC (Bld) [#/Vol] 2.54 10*6/uL Low 4.20-6.00 [facility] Comment on above: Order Comment: Speci men Type: BLOOD SPECIMENOrdering Facility: [facility] Address: [address] [place] [address] Performed By: #### 5 7021-8 ####[facility] [id number] [place] [address] [place] WBC (Bld) [#/Vol] 6.03 10*3/uL Normal 3.70-11.00 [facility] Comment on above: Order Comment: Speci men Type: BLOOD SPECIMENOrdering Facility: [facility] Address: [address] [place] [address] Performed By: #### 5 7021-8 ####[facility] [id number] [place] [address] [place] CBC panel Auto (Bld)on 02-11 Erythrocyte distribution width (RBC) [Ratio] 14.6 % Normal 11.5-15.0 [facility] Comment on above: Order Comment: Speci men Type: BLOOD SPECIMENOrdering Facility: [facility] Address: [address] [place] [address] Performed By: #### 5 8410-2 ####[facility] [id number] [place] [address] [place] Hematocrit (Bld) [Volume fraction] 22.8 % Low 39.0-51.0 [facility] Comment on above: Order Comment: Speci men Type: BLOOD SPECIMENOrdering Facility: [facility] Address: [address] [place] [address] Performed By: #### 5 8410-2 ####[facility] [id number] [place] [address] [place] Hemoglobin (Bld) [Mass/Vol] 7.5 g/dL Low 13.0-17.0 [facility] Comment on above: Order Comment: Speci men Type: BLOOD SPECIMENOrdering Facility: [facility] Address: [address] [place] [address] Performed By: #### 5 8410-2 ####[facility] [id number] [place] [address] [place] MCH (RBC) [Entitic mass] 30.2 pg Normal 26.0-34.0 [facility] Comment on above: Order Comment: Speci men Type: BLOOD SPECIMENOrdering Facility: [facility] Address: [address] [place] [address] Performed By: #### 5 8410-2 ####[facility] [id number] [place] [address] [place] MCHC (RBC) [Mass/Vol] 32.9 g/dL Normal 30.5-36.0 [facility] Comment on above: Order Comment: Speci men Type: BLOOD SPECIMENOrdering Facility: [facility] Address: [address] [place] [address] Performed By: #### 5 8410-2 ####[facility] [id number] [place] [address] [place] MCV (RBC) [Entitic vol] 91.9 fL Normal 80.0-100.0 [facility] Comment on above: Order Comment: Speci men Type: BLOOD SPECIMENOrdering Facility: [facility] Address: [address] [place] [address] Performed By: #### 5 8410-2 ####[facility] [id number] [place] [address] [place] Nucleated RBC (Bld) [#/Vol] 10*3/uL Normal <0.01 [facility] Comment on above: Order Comment: Speci men Type: BLOOD SPECIMENOrdering Facility: [facility] Address: [address] [place] [address] Performed By: #### 5 8410-2 ####[facility] [id number] [place] [address] [place] Platelet mean volume (Bld) [Entitic vol] 9.8 fL Normal 9.0-12.7 [facility] Comment on above: Order Comment: Speci men Type: BLOOD SPECIMENOrdering Facility: [facility] Address: [address] [place] [address] Performed By: #### 5 8410-2 ####[facility] [id number] [place] [address] [place] Platelets (Bld) [#/Vol] 246 10*3/uL Normal 150-400 [facility] Comment on above: Order Comment: Speci men Type: BLOOD SPECIMENOrdering Facility: [facility] Address: [address] [place] [address] Performed By: #### 5 8410-2 ####[facility] [id number] [place] [address] [place] RBC (Bld) [#/Vol] 2.48 10*6/uL Low 4.20-6.00 [facility] Comment on above: Order Comment: Speci men Type: BLOOD SPECIMENOrdering Facility: [facility] Address: [address] [place] [address] Performed By: #### 5 8410-2 ####[facility] [id number] [place] [address] [place] WBC (Bld) [#/Vol] 7.92 10*3/uL Normal 3.70-11.00 [facility] Comment on above: Order Comment: Speci men Type: BLOOD SPECIMENOrdering Facility: [facility] Address: [address] [place] [address] Performed By: #### 5 8410-2 ####[facility] [id number] [place] [address] [place] Erythrocyte distribution width (RBC) [Ratio] 15.0 % Normal 11.5-15.0 [facility] Comment on above: Order Comment: Speci men Type: BLOOD SPECIMENOrdering Facility: [facility] Address: [address] [place] [address] Performed By: #### 5 8410-2 ####[facility] [id number] [place] [address] [place] Hematocrit (Bld) [Volume fraction] 15.0 % Low 39.0-51.0 [facility] Comment on above: Order Comment: Speci men Type: BLOOD SPECIMENOrdering Facility: [facility] Address: [address] [place] [address] Performed By: #### 5 8410-2 ####[facility] [id number] [place] [address] [place] Hemoglobin (Bld) [Mass/Vol] 4.9 g/dL Critically low 13.0-17.0 [facility] Comment on above: Order Comment: Speci men Type: BLOOD SPECIMENOrdering Facility: [facility] Address: [address] [place] [address] Result Comment: No c lot detected. Performed By: #### 5 8410-2 ####[facility] [id number] [place] [address] [place] MCH (RBC) [Entitic mass] 30.4 pg Normal 26.0-34.0 [facility] Comment on above: Order Comment: Speci men Type: BLOOD SPECIMENOrdering Facility: [facility] Address: [address] [place] [address] Performed By: #### 5 8410-2 ####[facility] [id number] [place] [address] [place] MCHC (RBC) [Mass/Vol] 32.7 g/dL Normal 30.5-36.0 [facility] Comment on above: Order Comment: Speci men Type: BLOOD SPECIMENOrdering Facility: [facility] Address: [address] [place] [address] Performed By: #### 5 8410-2 ####[facility] [id number] [place] [address] [place] MCV (RBC) [Entitic vol] 93.2 fL Normal 80.0-100.0 [facility] Comment on above: Order Comment: Speci men Type: BLOOD SPECIMENOrdering Facility: [facility] Address: [address] [place] [address] Performed By: #### 5 8410-2 ####[facility] [id number] [place] [address] [place] Nucleated RBC (Bld) [#/Vol] 10*3/uL Normal <0.01 [facility] Comment on above: Order Comment: Speci men Type: BLOOD SPECIMENOrdering Facility: [facility] Address: [address] [place] [address] Performed By: #### 5 8410-2 ####[facility] [id number] [place] [address] [place] Platelet mean volume (Bld) [Entitic vol] 9.7 fL Normal 9.0-12.7 [facility] Comment on above: Order Comment: Speci men Type: BLOOD SPECIMENOrdering Facility: [facility] Address: [address] [place] [address] Performed By: #### 5 8410-2 ####[facility] [id number] [place] [address] [place] Platelets (Bld) [#/Vol] 168 10*3/uL Normal 150-400 [facility] Comment on above: Order Comment: Speci men Type: BLOOD SPECIMENOrdering Facility: [facility] Address: [address] [place] [address] Performed By: #### 5 8410-2 ####[facility] [id number] [place] [address] [place] RBC (Bld) [#/Vol] 1.61 10*6/uL Low 4.20-6.00 [facility] Comment on above: Order Comment: Speci men Type: BLOOD SPECIMENOrdering Facility: [facility] Address: [address] [place] [address] Performed By: #### 5 8410-2 ####[facility] [id number] [place] [address] [place] WBC (Bld) [#/Vol] 5.16 10*3/uL Normal 3.70-11.00 [facility] Comment on above: Order Comment: Speci men Type: BLOOD SPECIMENOrdering Facility: [facility] Address: [address] [place] [address] Performed By: #### 5 8410-2 ####[facility] [id number] [place] [address] [place] Erythrocyte distribution width (RBC) [Ratio] 14.9 % Normal 11.5-15.0 [facility] Comment on above: Order Comment: Speci men Type: BLOOD SPECIMENOrdering Facility: [facility] Address: [address] [place] [address] Performed By: #### 5 8410-2 ####[facility] [id number] [place] [address] [place] Hematocrit (Bld) [Volume fraction] 19.9 % Low 39.0-51.0 [facility] Comment on above: Order Comment: Speci men Type: BLOOD SPECIMENOrdering Facility: [facility] Address: [address] [place] [address] Performed By: #### 5 8410-2 ####[facility] [id number] [place] [address] [place] Hemoglobin (Bld) [Mass/Vol] 6.6 g/dL Low 13.0-17.0 [facility] Comment on above: Order Comment: Speci men Type: BLOOD SPECIMENOrdering Facility: [facility] Address: [address] [place] [address] Performed By: #### 5 8410-2 ####[facility] [id number] [place] [address] [place] MCH (RBC) [Entitic mass] 30.6 pg Normal 26.0-34.0 [facility] Comment on above: Order Comment: Speci men Type: BLOOD SPECIMENOrdering Facility: [facility] Address: [address] [place] [address] Performed By: #### 5 8410-2 ####[facility] [id number] [place] [address] [place] MCHC (RBC) [Mass/Vol] 33.2 g/dL Normal 30.5-36.0 [facility] Comment on above: Order Comment: Speci men Type: BLOOD SPECIMENOrdering Facility: [facility] Address: [address] [place] [address] Performed By: #### 5 8410-2 ####[facility] [id number] [place] [address] [place] MCV (RBC) [Entitic vol] 92.1 fL Normal 80.0-100.0 [facility] Comment on above: Order Comment: Speci men Type: BLOOD SPECIMENOrdering Facility: [facility] Address: [address] [place] [address] Performed By: #### 5 8410-2 ####[facility] [id number] [place] [address] [place] Nucleated RBC (Bld) [#/Vol] 10*3/uL Normal <0.01 [facility] Comment on above: Order Comment: Speci men Type: BLOOD SPECIMENOrdering Facility: [facility] Address: [address] [place] [address] Performed By: #### 5 8410-2 ####[facility] [id number] [place] [address] [place] Platelet mean volume (Bld) [Entitic vol] 10.0 fL Normal 9.0-12.7 [facility] Comment on above: Order Comment: Speci men Type: BLOOD SPECIMENOrdering Facility: [facility] Address: [address] [place] [address] Performed By: #### 5 8410-2 ####[facility] [id number] [place] [address] [place] Platelets (Bld) [#/Vol] 163 10*3/uL Normal 150-400 [facility] Comment on above: Order Comment: Speci men Type: BLOOD SPECIMENOrdering Facility: [facility] Address: [address] [place] [address] Performed By: #### 5 8410-2 ####[facility] [id number] [place] [address] [place] RBC (Bld) [#/Vol] 2.16 10*6/uL Low 4.20-6.00 [facility] Comment on above: Order Comment: Speci men Type: BLOOD SPECIMENOrdering Facility: [facility] Address: [address] [place] [address] Performed By: #### 5 8410-2 ####[facility] [id number] [place] [address] [place] WBC (Bld) [#/Vol] 5.75 10*3/uL Normal 3.70-11.00 [facility] Comment on above: Order Comment: Speci men Type: BLOOD SPECIMENOrdering Facility: [facility] Address: [address] [place] [address] Performed By: #### 5 8410-2 ####[facility] [id number] [place] [address] [place] Erythrocyte distribution width (RBC) [Ratio] 14.9 % Normal 11.5-15.0 [facility] Comment on above: Order Comment: Speci men Type: BLOOD SPECIMENOrdering Facility: [facility] Address: [address] [place] [address] Performed By: #### 5 8410-2 ####[facility] [id number] [place] [address] [place] Hematocrit (Bld) [Volume fraction] 18.4 % Low 39.0-51.0 [facility] Comment on above: Order Comment: Speci men Type: BLOOD SPECIMENOrdering Facility: [facility] Address: [address] [place] [address] Performed By: #### 5 8410-2 ####[facility] [id number] [place] [address] [place] Hemoglobin (Bld) [Mass/Vol] 6.1 g/dL Low 13.0-17.0 [facility] Comment on above: Order Comment: Speci men Type: BLOOD SPECIMENOrdering Facility: [facility] Address: [address] [place] [address] Performed By: #### 5 8410-2 ####[facility] [id number] [place] [address] [place] MCH (RBC) [Entitic mass] 30.3 pg Normal 26.0-34.0 [facility] Comment on above: Order Comment: Speci men Type: BLOOD SPECIMENOrdering Facility: [facility] Address: [address] [place] [address] Performed By: #### 5 8410-2 ####[facility] [id number] [place] [address] [place] MCHC (RBC) [Mass/Vol] 33.2 g/dL Normal 30.5-36.0 [facility] Comment on above: Order Comment: Speci men Type: BLOOD SPECIMENOrdering Facility: [facility] Address: [address] [place] [address] Performed By: #### 5 8410-2 ####[facility] [id number] [place] [address] [place] MCV (RBC) [Entitic vol] 91.5 fL Normal 80.0-100.0 [facility] Comment on above: Order Comment: Speci men Type: BLOOD SPECIMENOrdering Facility: [facility] Address: [address] [place] [address] Performed By: #### 5 8410-2 ####[facility] [id number] [place] [address] [place] Nucleated RBC (Bld) [#/Vol] 10*3/uL Normal <0.01 [facility] Comment on above: Order Comment: Speci men Type: BLOOD SPECIMENOrdering Facility: [facility] Address: [address] [place] [address] Performed By: #### 5 8410-2 ####[facility] [id number] [place] [address] [place] Platelet mean volume (Bld) [Entitic vol] 9.6 fL Normal 9.0-12.7 [facility] Comment on above: Order Comment: Speci men Type: BLOOD SPECIMENOrdering Facility: [facility] Address: [address] [place] [address] Performed By: #### 5 8410-2 ####[facility] [id number] [place] [address] [place] Platelets (Bld) [#/Vol] 210 10*3/uL Normal 150-400 [facility] Comment on above: Order Comment: Speci men Type: BLOOD SPECIMENOrdering Facility: [facility] Address: [address] [place] [address] Result Comment: No c lot detected. Performed By: #### 5 8410-2 ####[facility] [id number] [place] [address] [place] RBC (Bld) [#/Vol] 2.01 10*6/uL Low 4.20-6.00 [facility] Comment on above: Order Comment: Speci men Type: BLOOD SPECIMENOrdering Facility: [facility] Address: [address] [place] [address] Performed By: #### 5 8410-2 ####[facility] [id number] [place] [address] [place] WBC (Bld) [#/Vol] 6.75 10*3/uL Normal 3.70-11.00 [facility] Comment on above: Order Comment: Speci men Type: BLOOD SPECIMENOrdering Facility: [facility] Address: [address] [place] [address] Performed By: #### 5 8410-2 ####[facility] [id number] [place] [address] [place] CNOVon 02-12-2024 CNOV Normal [facility] CONSULT PROGon 02-12-2024 CONSULT PROG Normal [facility] Calcium.ionized [Moles/Vol]o n 02-12-2024 Calcium.ionized (Bld) [Mass/Vol] 1.31 mmol/L High 1.08-1.30 [facility] Comment on above: Order Comment: Speci men Type: BLOOD SPECIMENOrdering Facility: [facility] Address: [address] [place] [address] Performed By: #### 1 995-0 ####[facility] [id number] [place] [address] [place] Calcium.ionized adjusted to pH 7.4 (Bld) [Moles/Vol] 1.27 mmol/L Normal 1.08-1.30 [facility] Comment on above: Order Comment: Speci men Type: BLOOD SPECIMENOrdering Facility: [facility] Address: [address] [place] [address] Performed By: #### 1 995-0 ####[facility] [id number] [place] [address] [place] Comprehensive metabolic 2000 panelon 02-12-2024 Albumin [Mass/Vol] 1.6 g/dL Low 3.9-4.9 [facility] Comment on above: Order Comment: Speci men Type: BLOOD SPECIMENOrdering Facility: [facility] Address: [address] [place] [address] Performed By: #### 2 4323-8 ####[facility] [id number] [place] [address] [place] ALP [Catalytic activity/Vol] 954 U/L High 38-113 [facility] Comment on above: Order Comment: Speci men Type: BLOOD SPECIMENOrdering Facility: [facility] Address: [address] [place] [address] Performed By: #### 2 4323-8 ####[facility] [id number] [place] [address] [place] ALT [Catalytic activity/Vol] 23 U/L Normal 10-54 [facility] Comment on above: Order Comment: Speci men Type: BLOOD SPECIMENOrdering Facility: [facility] Address: [address] [place] [address] Performed By: #### 2 4323-8 ####[facility] [id number] [place] [address] [place] Anion gap [Moles/Vol] 5 mmol/L Low 9-18 [facility] Comment on above: Order Comment: Speci men Type: BLOOD SPECIMENOrdering Facility: [facility] Address: [address] [place] [address] Performed By: #### 2 4323-8 ####[facility] [id number] [place] [address] [place] AST [Catalytic activity/Vol] 51 U/L High 14-40 [facility] Comment on above: Order Comment: Speci men Type: BLOOD SPECIMENOrdering Facility: [facility] Address: [address] [place] [address] Performed By: #### 2 4323-8 ####[facility] [id number] [place] [address] [place] Bilirubin [Mass/Vol] 0.9 mg/dL Normal 0.2-1.3 [facility] Comment on above: Order Comment: Speci men Type: BLOOD SPECIMENOrdering Facility: [facility] Address: [address] [place], [place] [id number] Performed By: #### 2 4323-8 ####[facility] [id number] [place] [address] [place] Calcium [Mass/Vol] 8.0 mg/dL Low 8.5-10.2 [facility] Comment on above: Order Comment: Speci men Type: BLOOD SPECIMENOrdering Facility: [facility] Address: [address] [place] [id number] Result Comment: Resu lt rechecked. Performed By: #### 2 4323-8 ####[facility] [id number] [place] [id number] [place] Chloride [Moles/Vol] 104 mmol/L Normal 97-105 [facility] Comment on above: Order Comment: Speci men Type: BLOOD SPECIMENOrdering Facility: [facility] Address: [address] [place] [address] Performed By: #### 2 4323-8 ####[facility] [id number] [place] [address] [place] CO2 [Moles/Vol] 25 mmol/L Normal 22-30 [facility] Comment on above: Order Comment: Speci men Type: BLOOD SPECIMENOrdering Facility: [facility] Address: [address] [place] [address] Performed By: #### 2 4323-8 ####[facility] [id number] [place] [address] [place] Creatinine [Mass/Vol] 0.90 mg/dL Normal 0.73-1.22 [facility] Comment on above: Order Comment: Speci men Type: BLOOD SPECIMENOrdering Facility: [facility] Address: [address] [place] [address] Performed By: #### 2 4323-8 ####[facility] [id number] [place] [address] [place] Creatinine and Glomerular filtration rate.predicted panel (S/P/Bld) 118 mL/min/1.73m??? Normal >=60 [facility] Comment on above: Order Comment: Speci men Type: BLOOD SPECIMENOrdering Facility: [facility] Address: [address] [place] [address] Result Comment: Janeth mated Glomerular Filtration Rate (eGFR) is calculated using the 2020 CKD-EPI creatinine equation. This equation utilizes serum creatinine, sex, and age as parameters. The creatinine assay has traceable calibration to isotope dilution-mass spectrometry. Refer to KDIGO guidelines for clinical interpretation. In patients with unstable renal function, e.g. those with acute kidney injury, the eGFR may not accurately reflect actual GFR. Performed By: #### 2 4323-8 ####[facility] [id number] [place] [address] [place] Glucose [Mass/Vol] 116 mg/dL High 74-99 [facility] Comment on above: Order Comment: Kanu sainz Type: BLOOD SPECIMENOrdering Facility: [facility] Address: [address] [place] [address] Result Comment: The [place] [employer] (ADA) provides guidance for cutoff values for fasting glucose and random glucose. The ADA defines fasting as no caloric intake for at least 8 hours. Fasting plasma glucose results between 100 to 125 mg/dL indicate increased risk for diabetes (prediabetes).Fasting plasma glucose results greater than or equal to 126 mg/dL meet the criteria for diagnosis of diabetes. In the absence of unequivocal hyperglycemia, results should be confirmed by repeat testing. In a patient with classic symptoms of hyperglycemia or hyperglycemic crisis, random plasma glucose results greater than or equal to 200 mg/dL meet the criteria for diagnosis of diabetes.Reference: Standards of Medical Care in Diabetes 2016, [place] [employer]. Diabetes Care. 2016.39(Suppl 1). Performed By: #### 2 4323-8 ####[facility] [id number] [place] [id number] [place] Potassium [Moles/Vol] 4.8 mmol/L Normal 3.7-5.1 [facility] Comment on above: Order Comment: Kanu sainz Type: BLOOD SPECIMENOrdering Facility: [facility] Address: [address] [place] [address] Performed By: #### 2 4323-8 ####[facility] [id number] [address] [address] [place] Protein [Mass/Vol] 7.0 g/dL Normal 6.3-8.0 [facility] Comment on above: Order Comment: Speci men Type: BLOOD SPECIMENOrdering Facility: [facility] Address: [address] [place] [address] Performed By: #### 2 4323-8 ####[facility] [id number] [place] [address] [place] Sodium [Moles/Vol] 134 mmol/L Low 136-144 [facility] Comment on above: Order Comment: Speci men Type: BLOOD SPECIMENOrdering Facility: [facility] Address: [address] [place] [address] Performed By: #### 2 4323-8 ####[facility] [id number] [place] [address] [place] Urea nitrogen [Mass/Vol] 31 mg/dL High 9-24 [facility] Comment on above: Order Comment: Speci men Type: BLOOD SPECIMENOrdering Facility: [facility] Address: [address] [place] [address] Performed By: #### 2 4323-8 ####[facility] [id number] [place] [address] [place] Albumin [Mass/Vol] 1.2 g/dL Low 3.9-4.9 [facility] Comment on above: Order Comment: Speci men Type: BLOOD SPECIMENOrdering Facility: [facility] Address: [address] [place] [address] Performed By: #### 2 4323-8 ####[facility] [id number] [place] [address] [place] ALP [Catalytic activity/Vol] 793 U/L High 38-113 [facility] Comment on above: Order Comment: Speci men Type: BLOOD SPECIMENOrdering Facility: [facility] Address: [address] [place] [address] Performed By: #### 2 4323-8 ####[facility] [id number] [place] [address] [place] ALT [Catalytic activity/Vol] 21 U/L Normal 10-54 [facility] Comment on above: Order Comment: Speci men Type: BLOOD SPECIMENOrdering Facility: [facility] Address: [address] [place] [address] Performed By: #### 2 4323-8 ####[facility] [id number] [place] [address] [place] Anion gap [Moles/Vol] 6 mmol/L Low 9-18 [facility] Comment on above: Order Comment: Speci men Type: BLOOD SPECIMENOrdering Facility: [facility] Address: [address] [place] [address] Performed By: #### 2 4323-8 ####[facility] [id number] [place] [address] [place] AST [Catalytic activity/Vol] 44 U/L High 14-40 [facility] Comment on above: Order Comment: Speci men Type: BLOOD SPECIMENOrdering Facility: [facility] Address: [address] [place] [address] Performed By: #### 2 4323-8 ####[facility] [id number] [place] [address] [place] Bilirubin [Mass/Vol] 0.7 mg/dL Normal 0.2-1.3 [facility] Comment on above: Order Comment: Speci men Type: BLOOD SPECIMENOrdering Facility: [facility] Address: [address] [place] [address] Performed By: #### 2 4323-8 ####[facility] [id number] [place] [address] [place] Calcium [Mass/Vol] 5.3 mg/dL Low 8.5-10.2 [facility] Comment on above: Order Comment: Speci men Type: BLOOD SPECIMENOrdering Facility: [facility] Address: [address] [place] [address] Result Comment: Resu lt rechecked. Performed By: #### 2 4323-8 ####[facility] [id number] [place] [address] [place] Chloride [Moles/Vol] 105 mmol/L Normal 97-105 [facility] Comment on above: Order Comment: Speci men Type: BLOOD SPECIMENOrdering Facility: [facility] Address: [address] [place] [address] Performed By: #### 2 4323-8 ####[facility] [id number] [place] [address] [place] CO2 [Moles/Vol] 24 mmol/L Normal 22-30 [facility] Comment on above: Order Comment: Speci men Type: BLOOD SPECIMENOrdering Facility: [facility] Address: [address] [place] [address] Performed By: #### 2 4323-8 ####[facility] LABCLIA [id number] [place] [address] [place] Creatinine [Mass/Vol] 0.89 mg/dL Normal 0.73-1.22 [facility] Comment on above: Order Comment: Speci men Type: BLOOD SPECIMENOrdering Facility: [facility] Address: [address] [place] [address] Performed By: #### 2 4323-8 ####[facility]CLIA [id number] [place] [address] [place] Creatinine and Glomerular filtration rate.predicted panel (S/P/Bld) 118 mL/min/1.73m??? Normal >=60 [facility] Comment on above: Order Comment: Speci men Type: BLOOD SPECIMENOrdering Facility: [facility] Address: [address] [place] [address] Result Comment: Janeth mated Glomerular Filtration Rate (eGFR) is calculated using the 2020 CKD-EPI creatinine equation. This equation utilizes serum creatinine, sex, and age as parameters. The creatinine assay has traceable calibration to isotope dilution-mass spectrometry. Refer to KDIGO guidelines for clinical interpretation. In patients with unstable renal function, e.g. those with acute kidney injury, the eGFR may not accurately reflect actual GFR. Performed By: #### 2 4323-8 ####[facility] [id number] [place] [address] [place] Glucose [Mass/Vol] 138 mg/dL High 74-99 [facility] Comment on above: Order Comment: Kanu sainz Type: BLOOD SPECIMENOrdering Facility: [facility] Address: [address] [place] [address] Result Comment: The [place] [employer] (ADA) provides guidance for cutoff values for fasting glucose and random glucose. The ADA defines fasting as no caloric intake for at least 8 hours. Fasting plasma glucose results between 100 to 125 mg/dL indicate increased risk for diabetes (prediabetes).Fasting plasma glucose results greater than or equal to 126 mg/dL meet the criteria for diagnosis of diabetes. In the absence of unequivocal hyperglycemia, results should be confirmed by repeat testing. In a patient with classic symptoms of hyperglycemia or hyperglycemic crisis, random plasma glucose results greater than or equal to 200 mg/dL meet the criteria for diagnosis of diabetes.Reference: Standards of Medical Care in Diabetes 2016, [place] [employer]. Diabetes Care. 2016.39(Suppl 1). Performed By: #### 2 4323-8 ####[facility] [id number] [place] [address] [place] Potassium [Moles/Vol] 6.5 mmol/L Critically high 3.7-5.1 [facility] Comment on above: Order Comment: Kanu sainz Type: BLOOD SPECIMENOrdering Facility: [facility] Address: [address] [place] [address] Performed By: #### 2 4323-8 ####[facility] [id number] [place] [address] [place] Protein [Mass/Vol] 5.9 g/dL Low 6.3-8.0 [facility] Comment on above: Order Comment: Speci men Type: BLOOD SPECIMENOrdering Facility: [facility] Address: [address] [place] [address] Performed By: #### 2 4323-8 ####[facility] [id number] [place] [address] [place] Sodium [Moles/Vol] 135 mmol/L Low 136-144 [facility] Comment on above: Order Comment: Speci men Type: BLOOD SPECIMENOrdering Facility: [facility] Address: [address] [place] [address] Performed By: #### 2 4323-8 ####[facility] [id number] [place] [address] [place] Urea nitrogen [Mass/Vol] 31 mg/dL High 9-24 [facility] Comment on above: Order Comment: Speci men Type: BLOOD SPECIMENOrdering Facility: [facility] Address: [address] [place] [address] Performed By: #### 2 4323-8 ####[facility] [id number] [place] [address] [place] Albumin [Mass/Vol] 1.4 g/dL Low 3.9-4.9 [facility] Comment on above: Order Comment: Speci men Type: BLOOD SPECIMENOrdering Facility: [facility] Address: [address] [place] [address] Performed By: #### 2 4323-8, 29690-3 ####[facility] [id number] [place] [address] [place] ALP [Catalytic activity/Vol] 848 U/L High 38-113 [facility] Comment on above: Order Comment: Speci men Type: BLOOD SPECIMENOrdering Facility: [facility] Address: [address] [place] [id number] Performed By: #### 2 432-8, ####[facility] [id number] [place] [id number] [place] ALT [Catalytic activity/Vol] 20 U/L Normal 10-54 [facility] Comment on above: Order Comment: Speci men Type: BLOOD SPECIMENOrdering Facility: [facility] Address: [address] [place], [place] [address] Performed By: #### 2 432-8, ####[facility] [id number] [place] [address] [place] Anion gap [Moles/Vol] 4 mmol/L Low 9-18 [facility] Comment on above: Order Comment: Speci men Type: BLOOD SPECIMENOrdering Facility: [facility] Address: [address] [place] [address] Performed By: #### 2 432-8, ####[facility] [id number] [place] [address] [place] AST [Catalytic activity/Vol] 40 U/L Normal 14-40 [facility] Comment on above: Order Comment: Speci men Type: BLOOD SPECIMENOrdering Facility: [facility] Address: [address] [place], [place] [address] Performed By: #### 2 432-8, ####[facility] [id number] [place] [id number] [place] Bilirubin [Mass/Vol] 0.7 mg/dL Normal 0.2-1.3 [facility] Comment on above: Order Comment: Speci men Type: BLOOD SPECIMENOrdering Facility: [facility] Address: [address] [place], [place] [id number] Performed By: #### 2 432-8, ####[facility] [id number] [facility] [address] [address] [place] Calcium [Mass/Vol] 7.8 mg/dL Low 8.5-10.2 [facility] Comment on above: Order Comment: Speci men Type: BLOOD SPECIMENOrdering Facility: [facility] Address: [address] [place] [address] Performed By: #### 2 4323-07, ####[facility] [id number] [place] [address] [place] Chloride [Moles/Vol] 106 mmol/L High 97-105 [facility] Comment on above: Order Comment: Speci men Type: BLOOD SPECIMENOrdering Facility: [facility] Address: [address] [place] [address] Performed By: #### 2 4323-07, ####[facility] [id number] [place] [address] [place] CO2 [Moles/Vol] 25 mmol/L Normal 22-30 [facility] Comment on above: Order Comment: Speci men Type: BLOOD SPECIMENOrdering Facility: [facility] Address: [address] [place] [address] Performed By: #### 2 43202-05, ####[facility] [id number] [place] [address] [place] Creatinine [Mass/Vol] 0.90 mg/dL Normal 0.73-1.22 [facility] Comment on above: Order Comment: Speci men Type: BLOOD SPECIMENOrdering Facility: [facility] Address: [address] [place] [address] Performed By: #### 2 4323-8, ####[facility] [id number] [place] [id number] [place] Creatinine and Glomerular filtration rate.predicted panel (S/P/Bld) 118 mL/min/1.73m??? Normal >=60 [facility] Comment on above: Order Comment: Kanu sainz Type: BLOOD SPECIMENOrdering Facility: [facility] Address: [address] [place] [address] Result Comment: Janeth mated Glomerular Filtration Rate (eGFR) is calculated using the 2020 CKD-EPI creatinine equation. This equation utilizes serum creatinine, sex, and age as parameters. The creatinine assay has traceable calibration to isotope dilution-mass spectrometry. Refer to KDIGO guidelines for clinical interpretation. In patients with unstable renal function, e.g. those with acute kidney injury, the eGFR may not accurately reflect actual GFR. Performed By: #### 2 4323-8, ####[facility] [id number] [place] [address] [place] Glucose [Mass/Vol] 98 mg/dL Normal 74-99 [facility] Comment on above: Order Comment: Kanu sainz Type: BLOOD SPECIMENOrdering Facility: [facility] Address: [address] [place] [address] Result Comment: The [place] [employer] (ADA) provides guidance for cutoff values for fasting glucose and random glucose. The ADA defines fasting as no caloric intake for at least 8 hours. Fasting plasma glucose results between 100 to 125 mg/dL indicate increased risk for diabetes (prediabetes).Fasting plasma glucose results greater than or equal to 126 mg/dL meet the criteria for diagnosis of diabetes. In the absence of unequivocal hyperglycemia, results should be confirmed by repeat testing. In a patient with classic symptoms of hyperglycemia or hyperglycemic crisis, random plasma glucose results greater than or equal to 200 mg/dL meet the criteria for diagnosis of diabetes.Reference: Standards of Medical Care in Diabetes 2016, [place] [employer]. Diabetes Care. 2016.39(Suppl 1). Performed By: #### 2 4323-8, 59727-6 ####[facility] [id number] [place] [id number] [place] Potassium [Moles/Vol] 4.8 mmol/L Normal 3.7-5.1 [facility] Comment on above: Order Comment: Speci men Type: BLOOD SPECIMENOrdering Facility: [facility] Address: [address] [place] [address] Performed By: #### 2 4323-8, ####[facility] [id number] [place] [address] [place] Protein [Mass/Vol] 6.1 g/dL Low 6.3-8.0 [facility] Comment on above: Order Comment: Speci men Type: BLOOD SPECIMENOrdering Facility: [facility] Address: [address] [place] [address] Performed By: #### 2 4323-8, ####[facility] [id number] [place] [address] [place] Sodium [Moles/Vol] 135 mmol/L Low 136-144 [facility] Comment on above: Order Comment: Speci men Type: BLOOD SPECIMENOrdering Facility: [facility] Address: [address] [place] [address] Performed By: #### 2 4323-8, ####[facility] [id number] [place] [address] [place] Urea nitrogen [Mass/Vol] 33 mg/dL High 9-24 [facility] Comment on above: Order Comment: Speci men Type: BLOOD SPECIMENOrdering Facility: [facility] Address: [address] [place] [address] Performed By: #### 2 4323-8, ####[facility] [id number] [place] [id number] [place] ECG COMPLETEon 02-12-2024 ECG COMPLETE Normal [facility] Magnesium SerPl-mCncon 02-11 Magnesium [Mass/Vol] 1.4 mg/dL Low 1.7-2.3 [facility] Comment on above: Order Comment: Speci men Type: BLOOD SPECIMENOrdering Facility: [facility] Address: [address] [place] [address] Performed By: #### 2 4323-8, 94155-4 ####[facility] [id number] [address] [address] [place] NURSING PROGon 02-12-2024 NURSING PROG Normal [facility] TYPE + SCREENon 02-12-2024 ABO O Normal [facility] Comment on above: Order Comment: Speci men Type: BLOOD SPECIMENOrdering Facility: [facility] Address: [address] [place], [place] [phone] Performed By: #### T SCR ####[facility]ANKCLIA [id number] [address] [address] [place] HISTORICAL AB SCR STATUS Negative Normal [facility] Comment on above: Order Comment: Speci men Type: BLOOD SPECIMENOrdering Facility: [facility] Address: [address] [place], [place] [phone] Performed By: #### T SCR ####[facility]ANKCLIA [id number] [place] [id number] [place] Rh Nom (Bld) Positive Normal [facility] Comment on above: Order Comment: Speci men Type: BLOOD SPECIMENOrdering Facility: [facility] Address: [address] [place], [place] [phone] Performed By: #### T SCR ####[facility]CL[facility] [id number] [address] [address] [place] TYPE AND SCREEN EXPIRATION 02/15/2024 23:59 Normal [facility] Comment on above: Order Comment: Speci men Type: BLOOD SPECIMENOrdering Facility: [facility] Address: [address] [place] [address] Performed By: #### T SCR ####[facility]ANKCLIA [id number] [address] [address] [place] Vancomycin Crescent SerPl-mCncon 02-12-2024 Vancomycin random [Mass/Vol] 9.5 ug/mL Low 10.0-20.0 [facility] Comment on above: Order Comment: Speci men Type: BLOOD SPECIMENOrdering Facility: [facility] Address: [address] [place] [address] Result Comment: Refe rence ranges and high/low indicator flags are provided as general guidelines only. The treating physician must determine appropriate target levels/dosing based on the specific clinical situation. Performed By: #### 4 091-5 ####[facility] [id number] [place] [address] [place] Basic metabolic 2000 panelon 02-11-2024 Anion gap [Moles/Vol] 7 mmol/L Low 9-18 [facility] Comment on above: Order Comment: Speci men Type: BLOOD SPECIMENOrdering Facility: [facility] Address: [address] [place] [address] Performed By: #### 2 4321-2 ####[facility] [id number] [place] [address] [place] Calcium [Mass/Vol] 7.6 mg/dL Low 8.5-10.2 [facility] Comment on above: Order Comment: Speci men Type: BLOOD SPECIMENOrdering Facility: [facility] Address: [address] [place] [address] Performed By: #### 2 4321-2 ####[facility] [id number] [place] [address] [place] Chloride [Moles/Vol] 105 mmol/L Normal 97-105 [facility] Comment on above: Order Comment: Speci men Type: BLOOD SPECIMENOrdering Facility: [facility] Address: [address] [place] [address] Performed By: #### 2 4321-2 ####[facility] [id number] [place] [address] [place] CO2 [Moles/Vol] 23 mmol/L Normal 22-30 [facility] Comment on above: Order Comment: Speci men Type: BLOOD SPECIMENOrdering Facility: [facility] Address: [address] [place] [address] Performed By: #### 2 4321-2 ####[facility] [id number] [place] [address] [place] Creatinine [Mass/Vol] 0.87 mg/dL Normal 0.73-1.22 [facility] Comment on above: Order Comment: Speci men Type: BLOOD SPECIMENOrdering Facility: [facility] Address: [address] [place] [address] Performed By: #### 2 4321-2 ####[facility] [id number] [place] [address] [place] Creatinine and Glomerular filtration rate.predicted panel (S/P/Bld) 119 mL/min/1.73m??? Normal >=60 [facility] Comment on above: Order Comment: Speci men Type: BLOOD SPECIMENOrdering Facility: [facility] Address: [address] [place] [address] Result Comment: Janeth mated Glomerular Filtration Rate (eGFR) is calculated using the 2020 CKD-EPI creatinine equation. This equation utilizes serum creatinine, sex, and age as parameters. The creatinine assay has traceable calibration to isotope dilution-mass spectrometry. Refer to KDIGO guidelines for clinical interpretation. In patients with unstable renal function, e.g. those with acute kidney injury, the eGFR may not accurately reflect actual GFR. Performed By: #### 2 4321-2 ####[facility] [id number] [place] [address] [place] Glucose [Mass/Vol] 196 mg/dL High 74-99 [facility] Comment on above: Order Comment: Speci men Type: BLOOD SPECIMENOrdering Facility: [facility] Address: [address] [place] [address] Result Comment: The [place] [employer] (ADA) provides guidance for cutoff values for fasting glucose and random glucose. The ADA defines fasting as no caloric intake for at least 8 hours. Fasting plasma glucose results between 100 to 125 mg/dL indicate increased risk for diabetes (prediabetes).Fasting plasma glucose results greater than or equal to 126 mg/dL meet the criteria for diagnosis of diabetes. In the absence of unequivocal hyperglycemia, results should be confirmed by repeat testing. In a patient with classic symptoms of hyperglycemia or hyperglycemic crisis, random plasma glucose results greater than or equal to 200 mg/dL meet the criteria for diagnosis of diabetes.Reference: Standards of Medical Care in Diabetes 2016, [place] [employer]. Diabetes Care. 2016.39(Suppl 1). Performed By: #### 2 4321-2 ####[facility] [id number] [place] [address] [place] Potassium [Moles/Vol] 4.2 mmol/L Normal 3.7-5.1 [facility] Comment on above: Order Comment: Speci men Type: BLOOD SPECIMENOrdering Facility: [facility] Address: [address] [place] [address] Performed By: #### 2 1-2 ####[facility] [id number] [place] [address] [place] Sodium [Moles/Vol] 135 mmol/L Low 136-144 [facility] Comment on above: Order Comment: Speci men Type: BLOOD SPECIMENOrdering Facility: [facility] Address: [address] [place] [address] Performed By: #### 2 1-2 ####[facility] [id number] [place] [address] [place] Urea nitrogen [Mass/Vol] 29 mg/dL High 9-24 [facility] Comment on above: Order Comment: Speci men Type: BLOOD SPECIMENOrdering Facility: [facility] Address: [address] [place] [address] Performed By: #### 2 4321-2 ####[facility] [id number] [place] [address] [place] CASE MANAGEMon 02-11-2024 CASE MANAGEM Normal [facility] CBC panel Auto (Bld)on 02-10 Erythrocyte distribution width (RBC) [Ratio] 15.1 % High 11.5-15.0 [facility] Comment on above: Order Comment: Speci men Type: BLOOD SPECIMENOrdering Facility: [facility] Address: [address] [place] [address] Performed By: #### 5 8410-2 ####[facility] [id number] [place] [address] [place] Hematocrit (Bld) [Volume fraction] 22.6 % Low 39.0-51.0 [facility] Comment on above: Order Comment: Speci men Type: BLOOD SPECIMENOrdering Facility: [facility] Address: [address] [place] [address] Performed By: #### 5 8410-2 ####[facility] [id number] [place] [address] [place] Hemoglobin (Bld) [Mass/Vol] 7.5 g/dL Low 13.0-17.0 [facility] Comment on above: Order Comment: Speci men Type: BLOOD SPECIMENOrdering Facility: [facility] Address: [address] [place] [address] Performed By: #### 5 8410-2 ####[facility] [id number] [place] [address] [place] MCH (RBC) [Entitic mass] 30.5 pg Normal 26.0-34.0 [facility] Comment on above: Order Comment: Speci men Type: BLOOD SPECIMENOrdering Facility: [facility] Address: [address] [place] [address] Performed By: #### 5 8410-2 ####[facility] [id number] [place] [address] [place] MCHC (RBC) [Mass/Vol] 33.2 g/dL Normal 30.5-36.0 [facility] Comment on above: Order Comment: Speci men Type: BLOOD SPECIMENOrdering Facility: [facility] Address: [address] [place] [address] Performed By: #### 5 8410-2 ####[facility] [id number] [place] [address] [place] MCV (RBC) [Entitic vol] 91.9 fL Normal 80.0-100.0 [facility] Comment on above: Order Comment: Speci men Type: BLOOD SPECIMENOrdering Facility: [facility] Address: [address] [place] [address] Performed By: #### 5 8410-2 ####[facility] [id number] [place] [address] [place] Nucleated RBC (Bld) [#/Vol] 10*3/uL Normal <0.01 [facility] Comment on above: Order Comment: Speci men Type: BLOOD SPECIMENOrdering Facility: [facility] Address: [address] [place] [address] Performed By: #### 5 8410-2 ####[facility] [id number] [place] [address] [place] Platelet mean volume (Bld) [Entitic vol] 9.4 fL Normal 9.0-12.7 [facility] Comment on above: Order Comment: Speci men Type: BLOOD SPECIMENOrdering Facility: [facility] Address: [address] [place] [address] Performed By: #### 5 8410-2 ####[facility] [id number] [place] [address] [place] Platelets (Bld) [#/Vol] 257 10*3/uL Normal 150-400 [facility] Comment on above: Order Comment: Speci men Type: BLOOD SPECIMENOrdering Facility: [facility] Address: [address] [place] [address] Performed By: #### 5 8410-2 ####[facility] [id number] [place] [address] [place] RBC (Bld) [#/Vol] 2.46 10*6/uL Low 4.20-6.00 [facility] Comment on above: Order Comment: Speci men Type: BLOOD SPECIMENOrdering Facility: [facility] Address: [address] [place] [address] Performed By: #### 5 8410-2 ####[facility] [id number] [place] [address] [place] WBC (Bld) [#/Vol] 7.09 10*3/uL Normal 3.70-11.00 [facility] Comment on above: Order Comment: Speci men Type: BLOOD SPECIMENOrdering Facility: [facility] Address: [address] [place] [address] Performed By: #### 5 8410-2 ####[facility] [id number] [place] [address] [place] Erythrocyte distribution width (RBC) [Ratio] 14.4 % Normal 11.5-15.0 [facility] Comment on above: Order Comment: Speci men Type: BLOOD SPECIMENOrdering Facility: [facility] Address: [address] [place] [address] Performed By: #### 5 8410-2 ####[facility] [id number] [place] [address] [place] Hematocrit (Bld) [Volume fraction] 20.1 % Low 39.0-51.0 [facility] Comment on above: Order Comment: Speci men Type: BLOOD SPECIMENOrdering Facility: [facility] Address: [address] [place] [address] Performed By: #### 5 8410-2 ####[facility] [id number] [place] [address] [place] Hemoglobin (Bld) [Mass/Vol] 6.8 g/dL Low 13.0-17.0 [facility] Comment on above: Order Comment: Speci men Type: BLOOD SPECIMENOrdering Facility: [facility] Address: [address] [place] [address] Performed By: #### 5 8410-2 ####[facility] [id number] [place] [address] [place] MCH (RBC) [Entitic mass] 30.6 pg Normal 26.0-34.0 [facility] Comment on above: Order Comment: Speci men Type: BLOOD SPECIMENOrdering Facility: [facility] Address: [address] [place] [address] Performed By: #### 5 8410-2 ####[facility] [id number] [place] [address] [place] MCHC (RBC) [Mass/Vol] 33.8 g/dL Normal 30.5-36.0 [facility] Comment on above: Order Comment: Speci men Type: BLOOD SPECIMENOrdering Facility: [facility] Address: [address] [place] [address] Performed By: #### 5 8410-2 ####[facility] [id number] [place] [address] [place] MCV (RBC) [Entitic vol] 90.5 fL Normal 80.0-100.0 [facility] Comment on above: Order Comment: Speci men Type: BLOOD SPECIMENOrdering Facility: [facility] Address: [address] [place] [address] Performed By: #### 5 8410-2 ####[facility] [id number] [place] [address] [place] Nucleated RBC (Bld) [#/Vol] 0.02 10*3/uL High <0.01 [facility] Comment on above: Order Comment: Speci men Type: BLOOD SPECIMENOrdering Facility: [facility] Address: [address] [place] [address] Performed By: #### 5 8410-2 ####[facility] [id number] [place] [address] [place] Platelet mean volume (Bld) [Entitic vol] 9.7 fL Normal 9.0-12.7 [facility] Comment on above: Order Comment: Speci men Type: BLOOD SPECIMENOrdering Facility: [facility] Address: [address] [place] [address] Performed By: #### 5 8410-2 ####[facility] [id number] [place] [address] [place] [place] Platelets (Bld) [#/Vol] 215 10*3/uL Normal 150-400 [facility] Comment on above: Order Comment: Speci men Type: BLOOD SPECIMENOrdering Facility: [facility] Address: [address] [place] [address] Performed By: #### 5 8410-2 ####[facility] [id number] [place] [address] [place] RBC (Bld) [#/Vol] 2.22 10*6/uL Low 4.20-6.00 [facility] Comment on above: Order Comment: Speci men Type: BLOOD SPECIMENOrdering Facility: [facility] Address: [address] [place] [address] Performed By: #### 5 8410-2 ####[facility] [id number] [place] [address] [place] WBC (Bld) [#/Vol] 6.89 10*3/uL Normal 3.70-11.00 [facility] Comment on above: Order Comment: Speci men Type: BLOOD SPECIMENOrdering Facility: [facility] Address: [address] [place] [address] Performed By: #### 5 8410-2 ####[facility] [id number] [place] [address] [place] NUTRITIONon 02-11-2024 NUTRITION Normal [facility] Trigl SerPl-mCncon Triglyceride [Mass/Vol] 89 mg/dL Normal <150 [facility] Comment on above: Order Comment: Speci men Type: BLOOD SPECIMENOrdering Facility: [facility] Address: [address] [place] [address] Result Comment: <150 mg/dL, Normal 150-199 mg/dL, Borderline high 200-499 mg/dL, High>499 mg/dL, Very highReference:1. National Cholesterol Education Program ATP III Guideline At-A-Glance Quick Desk Reference: National Heart, Lung, and Blood [place]. National Institutes of Health. 2001: NIH Publication No. 01-3305. Performed By: #### 2 571-8 ####[facility] [id number] [place] [address] [place] Triglyceride [Mass/Vol]on FASTING TIME 6 hrs Normal [facility] Comment on above: Order Comment: Speci men Type: BLOOD SPECIMENOrdering Facility: [facility] Address: [address] [place] [address] Performed By: #### 2 571-8 ####[facility] [id number] [place] [id number] [place] Basic metabolic 2000 panelon 02-10-2024 Anion gap [Moles/Vol] 6 mmol/L Low 9-18 [facility] Comment on above: Order Comment: Speci men Type: BLOOD SPECIMENOrdering Facility: [facility] Address: [address] [place] [address] Performed By: #### 2 4321-2 ####[facility] [id number] [place] [address] [place] Calcium [Mass/Vol] 7.9 mg/dL Low 8.5-10.2 [facility] Comment on above: Order Comment: Speci men Type: BLOOD SPECIMENOrdering Facility: [facility] Address: [address] [place] [address] Performed By: #### 2 4321-2 ####[facility] [id number] [place] [address] [place] Chloride [Moles/Vol] 108 mmol/L High 97-105 [facility] Comment on above: Order Comment: Speci men Type: BLOOD SPECIMENOrdering Facility: [facility] Address: [address] [place] [address] Performed By: #### 2 4321-2 ####[facility] [id number] [place] [address] [place] CO2 [Moles/Vol] 25 mmol/L Normal 22-30 [facility] Comment on above: Order Comment: Speci men Type: BLOOD SPECIMENOrdering Facility: [facility] Address: [address] [place] [address] Performed By: #### 2 4321-2 ####[facility] [id number] [place] [address] [place] Creatinine [Mass/Vol] 1.05 mg/dL Normal 0.73-1.22 [facility] Comment on above: Order Comment: Speci men Type: BLOOD SPECIMENOrdering Facility: [facility] Address: [address] [place] [address] Performed By: #### 2 4321-2 ####[facility] [id number] [place] [address] [place] Creatinine and Glomerular filtration rate.predicted panel (S/P/Bld) 98 mL/min/1.73m??? Normal >=60 [facility] Comment on above: Order Comment: Kanu sainz Type: BLOOD SPECIMENOrdering Facility: [facility] Address: [address] [place] [address] Result Comment: Janeth mated Glomerular Filtration Rate (eGFR) is calculated using the 2020 CKD-EPI creatinine equation. This equation utilizes serum creatinine, sex, and age as parameters. The creatinine assay has traceable calibration to isotope dilution-mass spectrometry. Refer to KDIGO guidelines for clinical interpretation. In patients with unstable renal function, e.g. those with acute kidney injury, the eGFR may not accurately reflect actual GFR. Performed By: #### 2 4321-2 ####[facility] [id number] [place] [address] [place] Glucose [Mass/Vol] 217 mg/dL High 74-99 [facility] Comment on above: Order Comment: Kanu sainz Type: BLOOD SPECIMENOrdering Facility: [facility] Address: [address] [place] [address] Result Comment: The [place] Diabetes [employer] (ADA) provides guidance for cutoff values for fasting glucose and random glucose. The ADA defines fasting as no caloric intake for at least 8 hours. Fasting plasma glucose results between 100 to 125 mg/dL indicate increased risk for diabetes (prediabetes).Fasting plasma glucose results greater than or equal to 126 mg/dL meet the criteria for diagnosis of diabetes. In the absence of unequivocal hyperglycemia, results should be confirmed by repeat testing. In a patient with classic symptoms of hyperglycemia or hyperglycemic crisis, random plasma glucose results greater than or equal to 200 mg/dL meet the criteria for diagnosis of diabetes.Reference: Standards of Medical Care in Diabetes 2016, [place] [employer]. Diabetes Care. 2016.39(Suppl 1). Performed By: #### 2 4321-2 ####[facility] [id number] [place] [address] [place] Potassium [Moles/Vol] 4.7 mmol/L Normal 3.7-5.1 [facility] Comment on above: Order Comment: Speci men Type: BLOOD SPECIMENOrdering Facility: [facility] Address: [address] [place] [address] Performed By: #### 2 4321-2 ####[facility] [id number] [address] [address] [place] Sodium [Moles/Vol] 139 mmol/L Normal 136-144 [facility] Comment on above: Order Comment: Speci men Type: BLOOD SPECIMENOrdering Facility: [facility] Address: [address] [place] [address] Performed By: #### 2 4321-2 ####[facility] [id number] [place] [address] [place] Urea nitrogen [Mass/Vol] 33 mg/dL High 9-24 [facility] Comment on above: Order Comment: Speci men Type: BLOOD SPECIMENOrdering Facility: [facility] Address: [address] [place] [address] Performed By: #### 2 4321-2 ####[facility] [id number] [place] [address] [place] CASE MANAGEMon 02-10-2024 CASE MANAGEM Normal [facility] CBC panel Auto (Bld)on 02-09 Erythrocyte distribution width (RBC) [Ratio] 14.6 % Normal 11.5-15.0 [facility] Comment on above: Order Comment: Speci men Type: BLOOD SPECIMENOrdering Facility: [facility] Address: [address] [place] [address] Performed By: #### 5 8410-2 ####[facility] [id number] [place] [address] [place] Hematocrit (Bld) [Volume fraction] 23.9 % Low 39.0-51.0 [facility] Comment on above: Order Comment: Speci men Type: BLOOD SPECIMENOrdering Facility: [facility] Address: [address] [place] [address] Performed By: #### 5 8410-2 ####[facility] [id number] [place] [address] [place] Hemoglobin (Bld) [Mass/Vol] 7.8 g/dL Low 13.0-17.0 [facility] Comment on above: Order Comment: Speci men Type: BLOOD SPECIMENOrdering Facility: [facility] Address: [address] [place] [address] Performed By: #### 5 8410-2 ####[facility] [id number] [place] [address] [place] MCH (RBC) [Entitic mass] 29.7 pg Normal 26.0-34.0 [facility] Comment on above: Order Comment: Speci men Type: BLOOD SPECIMENOrdering Facility: [facility] Address: [address] [place] [address] Performed By: #### 5 8410-2 ####[facility] [id number] [place] [address] [place] MCHC (RBC) [Mass/Vol] 32.6 g/dL Normal 30.5-36.0 [facility] Comment on above: Order Comment: Speci men Type: BLOOD SPECIMENOrdering Facility: [facility] Address: [address] [place] [address] Performed By: #### 5 8410-2 ####[facility] [id number] [place] [address] [place] MCV (RBC) [Entitic vol] 90.9 fL Normal 80.0-100.0 [facility] Comment on above: Order Comment: Speci men Type: BLOOD SPECIMENOrdering Facility: [facility] Address: [address] [place] [address] Performed By: #### 5 8410-2 ####[facility] [id number] [id number], [place] [address] [place] Nucleated RBC (Bld) [#/Vol] 10*3/uL Normal <0.01 [facility] Comment on above: Order Comment: Speci men Type: BLOOD SPECIMENOrdering Facility: [facility] Address: [address] [place] [address] Performed By: #### 5 8410-2 ####[facility] [id number] [place] [address] [place] Platelet mean volume (Bld) [Entitic vol] 9.2 fL Normal 9.0-12.7 [facility] Comment on above: Order Comment: Speci men Type: BLOOD SPECIMENOrdering Facility: [facility] Address: [address] [place] [address] Performed By: #### 5 8410-2 ####[facility] [id number] [place] [address] [place] Platelets (Bld) [#/Vol] 252 10*3/uL Normal 150-400 [facility] Comment on above: Order Comment: Speci men Type: BLOOD SPECIMENOrdering Facility: [facility] Address: [address] [place] [address] Performed By: #### 5 8410-2 ####[facility] [id number] [place] [address] [place] RBC (Bld) [#/Vol] 2.63 10*6/uL Low 4.20-6.00 [facility] Comment on above: Order Comment: Speci men Type: BLOOD SPECIMENOrdering Facility: [facility] Address: [address] [place] [address] Performed By: #### 5 8410-2 ####[facility] [id number] [place] [address] [place] WBC (Bld) [#/Vol] 5.80 10*3/uL Normal 3.70-11.00 [facility] Comment on above: Order Comment: Speci men Type: BLOOD SPECIMENOrdering Facility: [facility] Address: [address] [place] [address] Performed By: #### 5 8410-2 ####[facility] [id number] [place] [address] [place] Erythrocyte distribution width (RBC) [Ratio] 14.6 % Normal 11.5-15.0 [facility] Comment on above: Order Comment: Speci men Type: BLOOD SPECIMENOrdering Facility: [facility] Address: [address] [place] [address] Performed By: #### 5 8410-2 ####[facility] [id number] [place] [address] [place] Hematocrit (Bld) [Volume fraction] 21.3 % Low 39.0-51.0 [facility] Comment on above: Order Comment: Speci men Type: BLOOD SPECIMENOrdering Facility: [facility] Address: [address] [place] [address] Performed By: #### 5 8410-2 ####[facility] [id number] [place] [address] [place] Hemoglobin (Bld) [Mass/Vol] 7.0 g/dL Low 13.0-17.0 [facility] Comment on above: Order Comment: Speci men Type: BLOOD SPECIMENOrdering Facility: [facility] Address: [address] [place] [address] Performed By: #### 5 8410-2 ####[facility] [id number] [place] [address] [place] MCH (RBC) [Entitic mass] 29.9 pg Normal 26.0-34.0 [facility] Comment on above: Order Comment: Speci men Type: BLOOD SPECIMENOrdering Facility: [facility] Address: [address] [place] [address] Performed By: #### 5 8410-2 ####[facility] [id number] [place] [address] [place] MCHC (RBC) [Mass/Vol] 32.9 g/dL Normal 30.5-36.0 [facility] Comment on above: Order Comment: Speci men Type: BLOOD SPECIMENOrdering Facility: [facility] Address: [address] [place] [address] Performed By: #### 5 8410-2 ####[facility] [id number] [place] [address] [place] MCV (RBC) [Entitic vol] 91.0 fL Normal 80.0-100.0 [facility] Comment on above: Order Comment: Speci men Type: BLOOD SPECIMENOrdering Facility: [facility] Address: [address] [place] [address] Performed By: #### 5 8410-2 ####[facility] [id number] [place] [address] [place] Nucleated RBC (Bld) [#/Vol] 10*3/uL Normal <0.01 [facility] Comment on above: Order Comment: Speci men Type: BLOOD SPECIMENOrdering Facility: [facility] Address: [address] [place] [address] Performed By: #### 5 8410-2 ####[facility] [id number] [place] [address] [place] Platelet mean volume (Bld) [Entitic vol] 9.0 fL Normal 9.0-12.7 [facility] Comment on above: Order Comment: Speci men Type: BLOOD SPECIMENOrdering Facility: [facility] Address: [address] [place] [address] Performed By: #### 5 8410-2 ####[facility] [id number] [place] [address] [place] Platelets (Bld) [#/Vol] 234 10*3/uL Normal 150-400 [facility] Comment on above: Order Comment: Speci men Type: BLOOD SPECIMENOrdering Facility: [facility] Address: [address] [place] [address] Performed By: #### 5 8410-2 ####[facility] [id number] [place] [address] [place] RBC (Bld) [#/Vol] 2.34 10*6/uL Low 4.20-6.00 [facility] Comment on above: Order Comment: Speci men Type: BLOOD SPECIMENOrdering Facility: [facility] Address: [address] [place] [address] Performed By: #### 5 8410-2 ####[facility] [id number] [place] [address] [place] WBC (Bld) [#/Vol] 5.98 10*3/uL Normal 3.70-11.00 [facility] Comment on above: Order Comment: Speci men Type: BLOOD SPECIMENOrdering Facility: [facility] Address: [address] [place] [address] Performed By: #### 5 8410-2 ####[facility] [id number] [place] [address] [place] CONSULT PROGon 02-10-2024 CONSULT PROG Normal [facility] CONSULT PROG Normal [facility] Comprehensive metabolic 2000 panelon 02-10-2024 Albumin [Mass/Vol] 1.5 g/dL Low 3.9-4.9 [facility] Comment on above: Order Comment: Speci men Type: BLOOD SPECIMENOrdering Facility: [facility] Address: [address] [place] [address] Performed By: #### 2 4323-8 ####[facility] [id number] [id number], [place] [address] [place] ALP [Catalytic activity/Vol] 941 U/L High 38-113 [facility] Comment on above: Order Comment: Speci men Type: BLOOD SPECIMENOrdering Facility: [facility] Address: [address] [place] [address] Performed By: #### 2 4323-8 ####[facility] [id number] [place] [address] [place] ALT [Catalytic activity/Vol] 17 U/L Normal 10-54 [facility] Comment on above: Order Comment: Speci men Type: BLOOD SPECIMENOrdering Facility: [facility] Address: [address] [place] [address] Performed By: #### 2 4323-8 ####[facility] [id number] [place] [address] [place] Anion gap [Moles/Vol] 4 mmol/L Low 9-18 [facility] Comment on above: Order Comment: Speci men Type: BLOOD SPECIMENOrdering Facility: [facility] Address: [address] [place] [address] Performed By: #### 2 4323-8 ####[facility] [id number] [place] [address] [place] AST [Catalytic activity/Vol] 52 U/L High 14-40 [facility] Comment on above: Order Comment: Speci men Type: BLOOD SPECIMENOrdering Facility: [facility] Address: [address] [place] [address] Performed By: #### 2 4323-8 ####[facility] [id number] [place] [address] [place] Bilirubin [Mass/Vol] 0.6 mg/dL Normal 0.2-1.3 [facility] Comment on above: Order Comment: Speci men Type: BLOOD SPECIMENOrdering Facility: [facility] Address: [address] [place] [address] Performed By: #### 2 4323-8 ####[facility] [id number] [place] [address] [place] Calcium [Mass/Vol] 7.8 mg/dL Low 8.5-10.2 [facility] Comment on above: Order Comment: Speci men Type: BLOOD SPECIMENOrdering Facility: [facility] Address: [address] [place] [address] Performed By: #### 2 4323-8 ####[facility] [id number] [place] [address] [place] Chloride [Moles/Vol] 109 mmol/L High 97-105 [facility] Comment on above: Order Comment: Speci men Type: BLOOD SPECIMENOrdering Facility: [facility] Address: [address] [place] [address] Result Comment: Resu lt rechecked. Performed By: #### 2 4323-8 ####[facility] [id number] [place] [address] [place] CO2 [Moles/Vol] 23 mmol/L Normal 22-30 [facility] Comment on above: Order Comment: Speci men Type: BLOOD SPECIMENOrdering Facility: [facility] Address: [address] [place] [address] Result Comment: Resu lt rechecked. Performed By: #### 2 4323-8 ####[facility] [id number] [place] [address] [place] Creatinine [Mass/Vol] 1.08 mg/dL Normal 0.73-1.22 [facility] Comment on above: Order Comment: Speci men Type: BLOOD SPECIMENOrdering Facility: [facility] Address: [address] [place] [address] Performed By: #### 2 4323-8 ####[facility] [id number] [place] [address] [place] Creatinine and Glomerular filtration rate.predicted panel (S/P/Bld) 95 mL/min/1.73m??? Normal >=60 [facility] Comment on above: Order Comment: Kanu sainz Type: BLOOD SPECIMENOrdering Facility: [facility] Address: [address] [place] [address] Result Comment: Janeth mated Glomerular Filtration Rate (eGFR) is calculated using the 2020 CKD-EPI creatinine equation. This equation utilizes serum creatinine, sex, and age as parameters. The creatinine assay has traceable calibration to isotope dilution-mass spectrometry. Refer to KDIGO guidelines for clinical interpretation. In patients with unstable renal function, e.g. those with acute kidney injury, the eGFR may not accurately reflect actual GFR. Performed By: #### 2 4323-8 ####[facility] [id number] [place] [address] [place] Glucose [Mass/Vol] 162 mg/dL High 74-99 [facility] Comment on above: Order Comment: Kanu sainz Type: BLOOD SPECIMENOrdering Facility: [facility] Address: [address] [place] [address] Result Comment: The [place] [employer] (ADA) provides guidance for cutoff values for fasting glucose and random glucose. The ADA defines fasting as no caloric intake for at least 8 hours. Fasting plasma glucose results between 100 to 125 mg/dL indicate increased risk for diabetes (prediabetes).Fasting plasma glucose results greater than or equal to 126 mg/dL meet the criteria for diagnosis of diabetes. In the absence of unequivocal hyperglycemia, results should be confirmed by repeat testing. In a patient with classic symptoms of hyperglycemia or hyperglycemic crisis, random plasma glucose results greater than or equal to 200 mg/dL meet the criteria for diagnosis of diabetes.Reference: Standards of Medical Care in Diabetes 2016, [place] [employer]. Diabetes Care. 2016.39(Suppl 1). Performed By: #### 2 4323-8 ####[facility] [id number] [place] [address] [place] Potassium [Moles/Vol] 5.3 mmol/L High 3.7-5.1 [facility] Comment on above: Order Comment: Speci men Type: BLOOD SPECIMENOrdering Facility: [facility] Address: [address] [place] [address] Performed By: #### 2 4323-8 ####[facility] [id number] [place] [address] [place] Protein [Mass/Vol] 6.0 g/dL Low 6.3-8.0 [facility] Comment on above: Order Comment: Speci men Type: BLOOD SPECIMENOrdering Facility: [facility] Address: [address] [place] [address] Performed By: #### 2 4323-8 ####[facility] [id number] [place] [address] [place] Sodium [Moles/Vol] 136 mmol/L Normal 136-144 [facility] Comment on above: Order Comment: Speci men Type: BLOOD SPECIMENOrdering Facility: [facility] Address: [address] [place] [address] Result Comment: Resu lt rechecked. Performed By: #### 2 4323-8 ####[facility] [id number] [place] [address] [place] Urea nitrogen [Mass/Vol] 33 mg/dL High 9-24 [facility] Comment on above: Order Comment: Speci men Type: BLOOD SPECIMENOrdering Facility: [facility] Address: [address] [place] [address] Performed By: #### 2 4323-8 ####[facility] [id number] [place] [address] [place] US ASCITES SURVEYon 02-10-20 US ASCITES SURVEY Normal [facility] Basic metabolic 2000 panelon 02-09-2024 Anion gap [Moles/Vol] 7 mmol/L Low 9-18 [facility] Comment on above: Order Comment: Speci men Type: BLOOD SPECIMENOrdering Facility: [facility] Address: [address] [id number] Performed By: #### 2 4321-2 ####[facility] [id number] [place] [address] [place] Calcium [Mass/Vol] 8.0 mg/dL Low 8.5-10.2 [facility] Comment on above: Order Comment: Speci men Type: BLOOD SPECIMENOrdering Facility: [facility] Address: [address] [place] [address] Performed By: #### 2 4321-2 ####[facility] [id number] [place] [address] [place] Chloride [Moles/Vol] 107 mmol/L High 97-105 [facility] Comment on above: Order Comment: Speci men Type: BLOOD SPECIMENOrdering Facility: [facility] Address: [address] [place] [address] Performed By: #### 2 4321-2 ####[facility] [id number] [place] [address] [place] CO2 [Moles/Vol] 19 mmol/L Low 22-30 [facility] Comment on above: Order Comment: Speci men Type: BLOOD SPECIMENOrdering Facility: [facility] Address: [address] [place] [address] Performed By: #### 2 4321-2 ####[facility] [id number] [place] [address] [place] Creatinine [Mass/Vol] 1.11 mg/dL Normal 0.73-1.22 [facility] Comment on above: Order Comment: Speci men Type: BLOOD SPECIMENOrdering Facility: [facility] Address: [address] [place] [address] Performed By: #### 2 4321-2 ####[facility] [id number] [place] [address] [place] Creatinine and Glomerular filtration rate.predicted panel (S/P/Bld) 92 mL/min/1.73m??? Normal >=60 [facility] Comment on above: Order Comment: Kanu sainz Type: BLOOD SPECIMENOrdering Facility: [facility] Address: [address] [place] [address] Result Comment: Janeth mated Glomerular Filtration Rate (eGFR) is calculated using the 2020 CKD-EPI creatinine equation. This equation utilizes serum creatinine, sex, and age as parameters. The creatinine assay has traceable calibration to isotope dilution-mass spectrometry. Refer to KDIGO guidelines for clinical interpretation. In patients with unstable renal function, e.g. those with acute kidney injury, the eGFR may not accurately reflect actual GFR. Performed By: #### 2 4321-2 ####[facility] [id number] [place] [address] [place] Glucose [Mass/Vol] 168 mg/dL High 74-99 [facility] Comment on above: Order Comment: Kanu sainz Type: BLOOD SPECIMENOrdering Facility: [facility] Address: [address] [place] [address] Result Comment: The [place] [employer] (ADA) provides guidance for cutoff values for fasting glucose and random glucose. The ADA defines fasting as no caloric intake for at least 8 hours. Fasting plasma glucose results between 100 to 125 mg/dL indicate increased risk for diabetes (prediabetes).Fasting plasma glucose results greater than or equal to 126 mg/dL meet the criteria for diagnosis of diabetes. In the absence of unequivocal hyperglycemia, results should be confirmed by repeat testing. In a patient with classic symptoms of hyperglycemia or hyperglycemic crisis, random plasma glucose results greater than or equal to 200 mg/dL meet the criteria for diagnosis of diabetes.Reference: Standards of Medical Care in Diabetes 2016, [place] [employer]. Diabetes Care. 2016.39(Suppl 1). Performed By: #### 2 4321-2 ####[facility] [id number] [place] [address] [place] Potassium [Moles/Vol] 5.7 mmol/L High 3.7-5.1 [facility] Comment on above: Order Comment: Speci men Type: BLOOD SPECIMENOrdering Facility: [facility] Address: [address] [place] [address] Performed By: #### 2 4321-2 ####[facility] [id number] [place] [id number] [place] Sodium [Moles/Vol] 133 mmol/L Low 136-144 [facility] Comment on above: Order Comment: Speci men Type: BLOOD SPECIMENOrdering Facility: [facility] Address: [address] [place] [address] Performed By: #### 2 4321-2 ####[facility] [id number] [place] [address] [place] Urea nitrogen [Mass/Vol] 40 mg/dL High 9-24 [facility] Comment on above: Order Comment: Speci men Type: BLOOD SPECIMENOrdering Facility: [facility] Address: [address] [place] [address] Performed By: #### 2 4321-2 ####[facility] [id number] [place] [address] [place] Anion gap [Moles/Vol] 7 mmol/L Low 9-18 [facility] Comment on above: Order Comment: Speci men Type: BLOOD SPECIMENOrdering Facility: [facility] Address: [address] [place] [address] Performed By: #### 2 4321-2 ####[facility] [id number] [place] [address] [place] Calcium [Mass/Vol] 8.2 mg/dL Low 8.5-10.2 [facility] Comment on above: Order Comment: Speci men Type: BLOOD SPECIMENOrdering Facility: [facility] Address: [address] [place] [address] Performed By: #### 2 4321-2 ####[facility] [id number] [place] [address] [place] Chloride [Moles/Vol] 107 mmol/L High 97-105 [facility] Comment on above: Order Comment: Speci men Type: BLOOD SPECIMENOrdering Facility: [facility] Address: [address] [place] [address] Performed By: #### 2 4321-2 ####[facility] [id number] [place] [address] [place] CO2 [Moles/Vol] 20 mmol/L Low 22-30 [facility] Comment on above: Order Comment: Speci men Type: BLOOD SPECIMENOrdering Facility: [facility] Address: [address] [place] [address] Performed By: #### 2 4321-2 ####[facility] [id number] [place] [address] [place] Creatinine [Mass/Vol] 1.01 mg/dL Normal 0.73-1.22 [facility] Comment on above: Order Comment: Speci men Type: BLOOD SPECIMENOrdering Facility: [facility] Address: [address] [place] [address] Performed By: #### 2 4321-2 ####[facility] [id number] [place] [address] [place] Creatinine and Glomerular filtration rate.predicted panel (S/P/Bld) 103 mL/min/1.73m??? Normal >=60 [facility] Comment on above: Order Comment: Speci men Type: BLOOD SPECIMENOrdering Facility: [facility] Address: [address] [place] [address] Result Comment: Janeth mated Glomerular Filtration Rate (eGFR) is calculated using the 2020 CKD-EPI creatinine equation. This equation utilizes serum creatinine, sex, and age as parameters. The creatinine assay has traceable calibration to isotope dilution-mass spectrometry. Refer to KDIGO guidelines for clinical interpretation. In patients with unstable renal function, e.g. those with acute kidney injury, the eGFR may not accurately reflect actual GFR. Performed By: #### 2 4321-2 ####[facility] [id number] [place] [address] [place] Glucose [Mass/Vol] 87 mg/dL Normal 74-99 [facility] Comment on above: Order Comment: Kanu men Type: BLOOD SPECIMENOrdering Facility: [facility] Address: [address] [place] [address] Result Comment: The [place] [employer] (ADA) provides guidance for cutoff values for fasting glucose and random glucose. The ADA defines fasting as no caloric intake for at least 8 hours. Fasting plasma glucose results between 100 to 125 mg/dL indicate increased risk for diabetes (prediabetes).Fasting plasma glucose results greater than or equal to 126 mg/dL meet the criteria for diagnosis of diabetes. In the absence of unequivocal hyperglycemia, results should be confirmed by repeat testing. In a patient with classic symptoms of hyperglycemia or hyperglycemic crisis, random plasma glucose results greater than or equal to 200 mg/dL meet the criteria for diagnosis of diabetes.Reference: Standards of Medical Care in Diabetes 2016, [place] [employer]. Diabetes Care. 2016.39(Suppl 1). Performed By: #### 2 4321-2 ####[facility] [id number] [place] [address] [place] Potassium [Moles/Vol] 5.2 mmol/L High 3.7-5.1 [facility] Comment on above: Order Comment: Kanu sainz Type: BLOOD SPECIMENOrdering Facility: [facility] Address: [address] [place] [address] Performed By: #### 2 4321-2 ####[facility] [id number] [place] [address] [place] Sodium [Moles/Vol] 134 mmol/L Low 136-144 [facility] Comment on above: Order Comment: Kanu sainz Type: BLOOD SPECIMENOrdering Facility: [facility] Address: [address] [place], [place] [address] Performed By: #### 2 4321-2 ####[facility] [id number] [place] [address] [place] Urea nitrogen [Mass/Vol] 40 mg/dL High 9-24 [facility] Comment on above: Order Comment: Speci men Type: BLOOD SPECIMENOrdering Facility: [facility] Address: [address] [place] [address] Performed By: #### 2 4321-2 ####[facility] [id number] [place] [address] [place] CASE MANAGEMon 02-09-2024 CASE MANAGEM Normal [facility] CBC panel Auto (Bld)on 02-08 Erythrocyte distribution width (RBC) [Ratio] 14.1 % Normal 11.5-15.0 [facility] Comment on above: Order Comment: Speci men Type: BLOOD SPECIMENOrdering Facility: [facility] Address: [address] [place] [address] Performed By: #### 5 8410-2 ####[facility] [id number] [place] [address] [place] Hematocrit (Bld) [Volume fraction] 21.9 % Low 39.0-51.0 [facility] Comment on above: Order Comment: Speci men Type: BLOOD SPECIMENOrdering Facility: [facility] Address: [address] [place] [address] Performed By: #### 5 8410-2 ####[facility] [id number] [place] [id number] [place] Hemoglobin (Bld) [Mass/Vol] 7.3 g/dL Low 13.0-17.0 [facility] Comment on above: Order Comment: Speci men Type: BLOOD SPECIMENOrdering Facility: [facility] Address: [address] [place] [address] Performed By: #### 5 8410-2 ####[facility] [id number] [place] [address] [place] MCH (RBC) [Entitic mass] 29.8 pg Normal 26.0-34.0 [facility] Comment on above: Order Comment: Speci men Type: BLOOD SPECIMENOrdering Facility: [facility] Address: [address] [place] [address] Performed By: #### 5 8410-2 ####[facility] [id number] [place] [address] [place] MCHC (RBC) [Mass/Vol] 33.3 g/dL Normal 30.5-36.0 [facility] Comment on above: Order Comment: Speci men Type: BLOOD SPECIMENOrdering Facility: [facility] Address: [address] [place] [address] Performed By: #### 5 8410-2 ####[facility] [id number] [place] [address] [place] MCV (RBC) [Entitic vol] 89.4 fL Normal 80.0-100.0 [facility] Comment on above: Order Comment: Speci men Type: BLOOD SPECIMENOrdering Facility: [facility] Address: [address] [place] [address] Performed By: #### 5 8410-2 ####[facility] [id number] [place] [address] [place] Nucleated RBC (Bld) [#/Vol] 10*3/uL Normal <0.01 [facility] Comment on above: Order Comment: Speci men Type: BLOOD SPECIMENOrdering Facility: [facility] Address: [address] [place] [address] Performed By: #### 5 8410-2 ####[facility] [id number] [place] [address] [place] Platelet mean volume (Bld) [Entitic vol] 9.4 fL Normal 9.0-12.7 [facility] Comment on above: Order Comment: Speci men Type: BLOOD SPECIMENOrdering Facility: [facility] Address: [address] [place] [address] Performed By: #### 5 8410-2 ####[facility] [id number] [place] [address] [place] Platelets (Bld) [#/Vol] 241 10*3/uL Normal 150-400 [facility] Comment on above: Order Comment: Speci men Type: BLOOD SPECIMENOrdering Facility: [facility] Address: [address] [place] [address] Performed By: #### 5 8410-2 ####[facility] [id number] [place] [address] [place] RBC (Bld) [#/Vol] 2.45 10*6/uL Low 4.20-6.00 [facility] Comment on above: Order Comment: Speci men Type: BLOOD SPECIMENOrdering Facility: [facility] Address: [address] [place] [address] Performed By: #### 5 8410-2 ####[facility] [id number] [place] [address] [place] WBC (Bld) [#/Vol] 7.12 10*3/uL Normal 3.70-11.00 [facility] Comment on above: Order Comment: Speci men Type: BLOOD SPECIMENOrdering Facility: [facility] Address: [address] [place] [address] Performed By: #### 5 8410-2 ####[facility] [id number] [place] [address] [place] Erythrocyte distribution width (RBC) [Ratio] 14.4 % Normal 11.5-15.0 [facility] Comment on above: Order Comment: Speci men Type: BLOOD SPECIMENOrdering Facility: [facility] Address: [address] [place] [address] Performed By: #### 5 8410-2 ####[facility] [id number] [place] [address] [place] Hematocrit (Bld) [Volume fraction] 24.0 % Low 39.0-51.0 [facility] Comment on above: Order Comment: Speci men Type: BLOOD SPECIMENOrdering Facility: [facility] Address: [address] [place] [address] Performed By: #### 5 8410-2 ####[facility] [id number] [place] [address] [place] Hemoglobin (Bld) [Mass/Vol] 7.9 g/dL Low 13.0-17.0 [facility] Comment on above: Order Comment: Speci men Type: BLOOD SPECIMENOrdering Facility: [facility] Address: [address] [place] [address] Performed By: #### 5 8410-2 ####[facility] [id number] [place] [address] [place] MCH (RBC) [Entitic mass] 30.0 pg Normal 26.0-34.0 [facility] Comment on above: Order Comment: Speci men Type: BLOOD SPECIMENOrdering Facility: [facility] Address: [address] [place] [address] Performed By: #### 5 8410-2 ####[facility] [id number] [place] [address] [place] MCHC (RBC) [Mass/Vol] 32.9 g/dL Normal 30.5-36.0 [facility] Comment on above: Order Comment: Speci men Type: BLOOD SPECIMENOrdering Facility: [facility] Address: [address] [place] [address] Performed By: #### 5 8410-2 ####[facility] [id number] [place] [address] [place] MCV (RBC) [Entitic vol] 91.3 fL Normal 80.0-100.0 [facility] Comment on above: Order Comment: Speci men Type: BLOOD SPECIMENOrdering Facility: [facility] Address: [address] [place] [address] Performed By: #### 5 8410-2 ####[facility] [id number] [place] [address] [place] Nucleated RBC (Bld) [#/Vol] 0.03 10*3/uL High <0.01 [facility] Comment on above: Order Comment: Speci men Type: BLOOD SPECIMENOrdering Facility: [facility] Address: [address] [place] [address] Performed By: #### 5 8410-2 ####[facility] [id number] [place] [address] [place] Platelet mean volume (Bld) [Entitic vol] 8.9 fL Low 9.0-12.7 [facility] Comment on above: Order Comment: Speci men Type: BLOOD SPECIMENOrdering Facility: [facility] Address: [address] [place] [address] Performed By: #### 5 8410-2 ####[facility] [id number] [place] [address] [place] Platelets (Bld) [#/Vol] 272 10*3/uL Normal 150-400 [facility] Comment on above: Order Comment: Speci men Type: BLOOD SPECIMENOrdering Facility: [facility] Address: [address] [place] [address] Performed By: #### 5 8410-2 ####[facility] [id number] [place] [address] [place] RBC (Bld) [#/Vol] 2.63 10*6/uL Low 4.20-6.00 [facility] Comment on above: Order Comment: Speci men Type: BLOOD SPECIMENOrdering Facility: [facility] Address: [address] [place] [address] Performed By: #### 5 8410-2 ####[facility] [id number] [place] [address] [place] WBC (Bld) [#/Vol] 7.53 10*3/uL Normal 3.70-11.00 [facility] Comment on above: Order Comment: Speci men Type: BLOOD SPECIMENOrdering Facility: [facility] Address: [address] [place] [address] Performed By: #### 5 8410-2 ####[facility] [id number] [place] [address] [place] Erythrocyte distribution width (RBC) [Ratio] 14.6 % Normal 11.5-15.0 [facility] Comment on above: Order Comment: Speci men Type: BLOOD SPECIMENOrdering Facility: [facility] Address: [address] [place] [address] Performed By: #### 5 8410-2 ####[facility] [id number] [place] [address] [place] Hematocrit (Bld) [Volume fraction] 21.0 % Low 39.0-51.0 [facility] Comment on above: Order Comment: Speci men Type: BLOOD SPECIMENOrdering Facility: [facility] Address: [address] [place] [address] Performed By: #### 5 8410-2 ####[facility] [id number] [place] [address] [place] Hemoglobin (Bld) [Mass/Vol] 7.0 g/dL Low 13.0-17.0 [facility] Comment on above: Order Comment: Speci men Type: BLOOD SPECIMENOrdering Facility: [facility] Address: [facility] [place] [address] Performed By: #### 5 8410-2 ####[facility] [id number] [place] [address] [place] MCH (RBC) [Entitic mass] 30.2 pg Normal 26.0-34.0 [facility] Comment on above: Order Comment: Speci men Type: BLOOD SPECIMENOrdering Facility: [facility] Address: [address] [place] [address] Performed By: #### 5 8410-2 ####[facility] [id number] [place] [address] [place] MCHC (RBC) [Mass/Vol] 33.3 g/dL Normal 30.5-36.0 [facility] Comment on above: Order Comment: Speci men Type: BLOOD SPECIMENOrdering Facility: [facility] Address: [address] [place] [address] Performed By: #### 5 8410-2 ####[facility] [id number] [place] [address] [place] MCV (RBC) [Entitic vol] 90.5 fL Normal 80.0-100.0 [facility] Comment on above: Order Comment: Speci men Type: BLOOD SPECIMENOrdering Facility: [facility] Address: [address] [place] [address] Performed By: #### 5 8410-2 ####[facility] [id number] [place] [address] [place] Nucleated RBC (Bld) [#/Vol] 0.04 10*3/uL High <0.01 [facility] Comment on above: Order Comment: Speci men Type: BLOOD SPECIMENOrdering Facility: [facility] Address: [address] [place] [address] Performed By: #### 5 8410-2 ####[facility] [id number] [place] [address] [place] Platelet mean volume (Bld) [Entitic vol] 8.9 fL Low 9.0-12.7 [facility] Comment on above: Order Comment: Speci men Type: BLOOD SPECIMENOrdering Facility: [facility] Address: [address] [place] [address] Performed By: #### 5 8410-2 ####[facility] [id number] [place] [address] [place] Platelets (Bld) [#/Vol] 227 10*3/uL Normal 150-400 [facility] Comment on above: Order Comment: Speci men Type: BLOOD SPECIMENOrdering Facility: [facility] Address: [address] [place] [address] Performed By: #### 5 8410-2 ####[facility] [id number] [place] [address] [place] RBC (Bld) [#/Vol] 2.32 10*6/uL Low 4.20-6.00 [facility] Comment on above: Order Comment: Speci men Type: BLOOD SPECIMENOrdering Facility: [facility] Address: [address] [place] [address] Performed By: #### 5 8410-2 ####[facility] [id number] [place] [address] [place] WBC (Bld) [#/Vol] 6.04 10*3/uL Normal 3.70-11.00 [facility] Comment on above: Order Comment: Speci men Type: BLOOD SPECIMENOrdering Facility: [facility] Address: [address] [place] [address] Performed By: #### 5 8410-2 ####[facility] [id number] [place] [address] [place] CONSULT PROGon 02-09-2024 CONSULT PROG Normal [facility] CONSULT PROG Normal [facility] Comprehensive metabolic 2000 panelon 02-09-2024 Albumin [Mass/Vol] 1.4 g/dL Low 3.9-4.9 [facility] Comment on above: Order Comment: Speci men Type: BLOOD SPECIMENOrdering Facility: [facility] Address: [address] [place] [address] Performed By: #### 2 4323-8, 257-8 ####[facility] [id number] [place] [address] [place] ALP [Catalytic activity/Vol] 878 U/L High 38-113 [facility] Comment on above: Order Comment: Speci men Type: BLOOD SPECIMENOrdering Facility: [facility] Address: [address] [place] [address] Performed By: #### 2 4323-8, 257-8 ####[facility] [id number] [place] [address] [place] ALT [Catalytic activity/Vol] 18 U/L Normal 10-54 [facility] Comment on above: Order Comment: Speci men Type: BLOOD SPECIMENOrdering Facility: [facility] Address: [address] [place] [address] Performed By: #### 2 4323-8, 257-8 ####[facility] [id number] [place] [address] [place] Anion gap [Moles/Vol] 3 mmol/L Low 9-18 [facility] Comment on above: Order Comment: Speci men Type: BLOOD SPECIMENOrdering Facility: [facility] Address: [address] [place] [address] Performed By: #### 2 4323-8, 257-8 ####[facility] [id number] [place] [address] [place] AST [Catalytic activity/Vol] 38 U/L Normal 14-40 [facility] Comment on above: Order Comment: Speci men Type: BLOOD SPECIMENOrdering Facility: [facility] Address: [address] [place] [address] Performed By: #### 2 4323-8, 8 ####[facility] [id number] [place] [address] [place] Bilirubin [Mass/Vol] 0.6 mg/dL Normal 0.2-1.3 [facility] Comment on above: Order Comment: Speci men Type: BLOOD SPECIMENOrdering Facility: [facility] Address: [address] [place] [address] Performed By: #### 2 4323-8, 8 ####[facility] [id number] [place] [address] [place] Calcium [Mass/Vol] 8.1 mg/dL Low 8.5-10.2 [facility] Comment on above: Order Comment: Speci men Type: BLOOD SPECIMENOrdering Facility: [facility] Address: [address] [place] [address] Performed By: #### 2 4323-8, 8 ####[facility] [id number] [place] [address] [place] Chloride [Moles/Vol] 108 mmol/L High 97-105 [facility] Comment on above: Order Comment: Speci men Type: BLOOD SPECIMENOrdering Facility: [facility] Address: [address] [place] [address] Result Comment: Resu lt rechecked. Performed By: #### 2 4323-8, 8 ####[facility] [id number] [place] [address] [place] CO2 [Moles/Vol] 23 mmol/L Normal 22-30 [facility] Comment on above: Order Comment: Speci men Type: BLOOD SPECIMENOrdering Facility: [facility] Address: [address] [place] [address] Result Comment: Resu lt rechecked. Performed By: #### 2 4323-8, 8 ####[facility] [id number] [place] [address] [place] Creatinine [Mass/Vol] 1.02 mg/dL Normal 0.73-1.22 [facility] Comment on above: Order Comment: Speci men Type: BLOOD SPECIMENOrdering Facility: [facility] Address: [address] [place] [address] Performed By: #### 2 4323-8, 8 ####[facility] [id number] [place] [address] [place] Creatinine and Glomerular filtration rate.predicted panel (S/P/Bld) 101 mL/min/1.73m??? Normal >=60 [facility] Comment on above: Order Comment: Speci men Type: BLOOD SPECIMENOrdering Facility: [facility] Address: [address] [place] [address] Result Comment: Janeth mated Glomerular Filtration Rate (eGFR) is calculated using the 2020 CKD-EPI creatinine equation. This equation utilizes serum creatinine, sex, and age as parameters. The creatinine assay has traceable calibration to isotope dilution-mass spectrometry. Refer to KDIGO guidelines for clinical interpretation. In patients with unstable renal function, e.g. those with acute kidney injury, the eGFR may not accurately reflect actual GFR. Performed By: #### 2 4323-8, 8 ####[facility] [id number] [place] [address] [place] Glucose [Mass/Vol] 203 mg/dL High 74-99 [facility] Comment on above: Order Comment: Speci men Type: BLOOD SPECIMENOrdering Facility: [facility] Address: [address] [place] [address] Result Comment: The [place] [employer] (ADA) provides guidance for cutoff values for fasting glucose and random glucose. The ADA defines fasting as no caloric intake for at least 8 hours. Fasting plasma glucose results between 100 to 125 mg/dL indicate increased risk for diabetes (prediabetes).Fasting plasma glucose results greater than or equal to 126 mg/dL meet the criteria for diagnosis of diabetes. In the absence of unequivocal hyperglycemia, results should be confirmed by repeat testing. In a patient with classic symptoms of hyperglycemia or hyperglycemic crisis, random plasma glucose results greater than or equal to 200 mg/dL meet the criteria for diagnosis of diabetes.Reference: Standards of Medical Care in Diabetes 2016, [place] [employer]. Diabetes Care. 2016.39(Suppl 1). Performed By: #### 2 4323-8, 2571-07 ####[facility] [id number] [place] [address] [place] Potassium [Moles/Vol] 6.1 mmol/L Critically high 3.7-5.1 [facility] Comment on above: Order Comment: Speci men Type: BLOOD SPECIMENOrdering Facility: [facility] Address: [address] [place] [address] Performed By: #### 2 432-8, 2571-07 ####[facility] [id number] [place] [address] [place] Protein [Mass/Vol] 6.0 g/dL Low 6.3-8.0 [facility] Comment on above: Order Comment: Paruli men Type: BLOOD SPECIMENOrdering Facility: [facility] Address: [address] [place] [address] Performed By: #### 2 432-8, 8 ####[facility] [id number] [place] [address] [place] Sodium [Moles/Vol] 134 mmol/L Low 136-144 [facility] Comment on above: Order Comment: Paruli men Type: BLOOD SPECIMENOrdering Facility: [facility] Address: [address] [place] [address] Result Comment: Resu lt rechecked. Performed By: #### 2 432-8, 2571-07 ####[facility] [id number] [place] [address] [place] Urea nitrogen [Mass/Vol] 42 mg/dL High 9-24 [facility] Comment on above: Order Comment: Speci men Type: BLOOD SPECIMENOrdering Facility: [facility] Address: [address] [place] [address] Performed By: #### 2 432-8, 2571-07 ####[facility] [id number] [place] [address] [place] NURSING PROGon 02-09-2024 NURSING PROG Normal [facility] Trigl SerPl-mCncon Triglyceride [Mass/Vol] 72 mg/dL Normal <150 [facility] Comment on above: Order Comment: Speci men Type: BLOOD SPECIMENOrdering Facility: [facility] Address: [address] [place] [address] Result Comment: <150 mg/dL, Normal 150-199 mg/dL, Borderline high 200-499 mg/dL, High>499 mg/dL, Very highReference:1. National Cholesterol Education Program ATP III Guideline At-A-Glance Quick Desk Reference: National Heart, Lung, and Blood [place]. National Institutes of Health. 2001: NIH Publication No. 01-3305. Performed By: #### 2 4323-8, 8 ####[facility] [id number] [address] [place] Triglyceride [Mass/Vol]on FASTING TIME \E\10 Normal [facility] Comment on above: Order Comment: Speci men Type: BLOOD SPECIMENOrdering Facility: [facility] Address: [address] [place] [address] Performed By: #### 2 4323-8, 2571-07 ####[facility] [id number] [place] [address] [place] CBC panel Auto (Bld)on 02-07 Erythrocyte distribution width (RBC) [Ratio] 14.4 % Normal 11.5-15.0 [facility] Comment on above: Order Comment: Speci men Type: BLOOD SPECIMENOrdering Facility: [facility] Address: [address] [place] [address] Performed By: #### 5 8410-2 ####[facility] [id number] [place] [address] [place] Hematocrit (Bld) [Volume fraction] 23.6 % Low 39.0-51.0 [facility] Comment on above: Order Comment: Speci men Type: BLOOD SPECIMENOrdering Facility: [facility] Address: [address] [place] [address] Performed By: #### 5 8410-2 ####[facility] [id number] [address] [place] Hemoglobin (Bld) [Mass/Vol] 7.9 g/dL Low 13.0-17.0 [facility] Comment on above: Order Comment: Speci men Type: BLOOD SPECIMENOrdering Facility: [facility] Address: [address] [place] [address] Performed By: #### 5 8410-2 ####[facility] [id number] [place] [address] [place] MCH (RBC) [Entitic mass] 30.3 pg Normal 26.0-34.0 [facility] Comment on above: Order Comment: Speci men Type: BLOOD SPECIMENOrdering Facility: [facility] Address: [address] [place] [address] Performed By: #### 5 8410-2 ####[facility] [id number] [place] [address] [place] MCHC (RBC) [Mass/Vol] 33.5 g/dL Normal 30.5-36.0 [facility] Comment on above: Order Comment: Speci men Type: BLOOD SPECIMENOrdering Facility: [facility] Address: [address] [place] [address] Performed By: #### 5 8410-2 ####[facility] [id number] [place] [address] [place] MCV (RBC) [Entitic vol] 90.4 fL Normal 80.0-100.0 [facility] Comment on above: Order Comment: Speci men Type: BLOOD SPECIMENOrdering Facility: [facility] Address: [address] [place] [address] Performed By: #### 5 8410-2 ####[facility] [id number] [place] [address] [place] Nucleated RBC (Bld) [#/Vol] 10*3/uL Normal <0.01 [facility] Comment on above: Order Comment: Speci men Type: BLOOD SPECIMENOrdering Facility: [facility] Address: [address] [place] [address] Performed By: #### 5 8410-2 ####[facility] [id number] [place] [address] [place] Platelet mean volume (Bld) [Entitic vol] 8.9 fL Low 9.0-12.7 [facility] Comment on above: Order Comment: Speci men Type: BLOOD SPECIMENOrdering Facility: [facility] Address: [address] [place] [address] Performed By: #### 5 8410-2 ####[facility] [id number] [place] [address] [place] Platelets (Bld) [#/Vol] 271 10*3/uL Normal 150-400 [facility] Comment on above: Order Comment: Speci men Type: BLOOD SPECIMENOrdering Facility: [facility] Address: [address] [place] [address] Performed By: #### 5 8410-2 ####[facility] [id number] [address] [address] [place] RBC (Bld) [#/Vol] 2.61 10*6/uL Low 4.20-6.00 [facility] Comment on above: Order Comment: Speci men Type: BLOOD SPECIMENOrdering Facility: [facility] Address: [address] [place] [address] Performed By: #### 5 8410-2 ####[facility] [id number] [place] [address] [place] WBC (Bld) [#/Vol] 9.25 10*3/uL Normal 3.70-11.00 [facility] Comment on above: Order Comment: Speci men Type: BLOOD SPECIMENOrdering Facility: [facility] Address: [address] [place] [address] Performed By: #### 5 8410-2 ####[facility] [id number] [place] [address] [place] Comprehensive metabolic 2000 panelon 02-08-2024 Albumin [Mass/Vol] 1.6 g/dL Low 3.9-4.9 [facility] Comment on above: Order Comment: Speci men Type: BLOOD SPECIMENOrdering Facility: [facility] Address: [address] [place] [address] Performed By: #### 2 4323-8 ####[facility] [id number] [place] [address] [place] ALP [Catalytic activity/Vol] 910 U/L High 38-113 [facility] Comment on above: Order Comment: Speci men Type: BLOOD SPECIMENOrdering Facility: [facility] Address: [address] [place] [address] Performed By: #### 2 4323-8 ####[facility] [id number] [place] [address] [place] ALT [Catalytic activity/Vol] 21 U/L Normal 10-54 [facility] Comment on above: Order Comment: Speci men Type: BLOOD SPECIMENOrdering Facility: [facility] Address: [address] [place] [address] Performed By: #### 2 4323-8 ####[facility] [id number] [place] [address] [place] Anion gap [Moles/Vol] 5 mmol/L Low 9-18 [facility] Comment on above: Order Comment: Speci men Type: BLOOD SPECIMENOrdering Facility: [facility] Address: [address] [place] [address] Performed By: #### 2 4323-8 ####[facility] [id number] [place] [address] [place] AST [Catalytic activity/Vol] 40 U/L Normal 14-40 [facility] Comment on above: Order Comment: Speci men Type: BLOOD SPECIMENOrdering Facility: [facility] Address: [address] [place] [address] Performed By: #### 2 4323-8 ####[facility] [id number] [place] [address] [place] Bilirubin [Mass/Vol] 0.7 mg/dL Normal 0.2-1.3 [facility] Comment on above: Order Comment: Speci men Type: BLOOD SPECIMENOrdering Facility: [facility] Address: [address] [place] [id number] Performed By: #### 2 4323-8 ####[facility] [id number] [place] [address] [place] Calcium [Mass/Vol] 7.9 mg/dL Low 8.5-10.2 [facility] Comment on above: Order Comment: Speci men Type: BLOOD SPECIMENOrdering Facility: [facility] Address: [address] [place] [address] Performed By: #### 2 4323-8 ####[facility] [id number] [place] [address] [place] Chloride [Moles/Vol] 109 mmol/L High 97-105 [facility] Comment on above: Order Comment: Speci men Type: BLOOD SPECIMENOrdering Facility: [facility] Address: [address] [place] [address] Performed By: #### 2 4323-8 ####[facility] [id number] [place] [address] [place] CO2 [Moles/Vol] 21 mmol/L Low 22-30 [facility] Comment on above: Order Comment: Speci men Type: BLOOD SPECIMENOrdering Facility: [facility] Address: [address] [place] [address] Performed By: #### 2 4323-8 ####[facility] [id number] [place] [address] [place] Creatinine [Mass/Vol] 1.04 mg/dL Normal 0.73-1.22 [facility] Comment on above: Order Comment: Speci men Type: BLOOD SPECIMENOrdering Facility: [facility] Address: [address] [place] [address] Performed By: #### 2 4323-8 ####[facility] [id number] [place] [address] [place] Creatinine and Glomerular filtration rate.predicted panel (S/P/Bld) 99 mL/min/1.73m??? Normal >=60 [facility] Comment on above: Order Comment: Speci men Type: BLOOD SPECIMENOrdering Facility: [facility] Address: [address] [place] [address] Result Comment: Janeth mated Glomerular Filtration Rate (eGFR) is calculated using the 2020 CKD-EPI creatinine equation. This equation utilizes serum creatinine, sex, and age as parameters. The creatinine assay has traceable calibration to isotope dilution-mass spectrometry. Refer to KDIGO guidelines for clinical interpretation. In patients with unstable renal function, e.g. those with acute kidney injury, the eGFR may not accurately reflect actual GFR. Performed By: #### 2 4323-8 ####[facility] [id number] [address] [address] [place] Glucose [Mass/Vol] 69 mg/dL Low 74-99 [facility] Comment on above: Order Comment: Kanu sainz Type: BLOOD SPECIMENOrdering Facility: [facility] Address: [address] [place] [address] Result Comment: The [place] [employer] (ADA) provides guidance for cutoff values for fasting glucose and random glucose. The ADA defines fasting as no caloric intake for at least 8 hours. Fasting plasma glucose results between 100 to 125 mg/dL indicate increased risk for diabetes (prediabetes).Fasting plasma glucose results greater than or equal to 126 mg/dL meet the criteria for diagnosis of diabetes. In the absence of unequivocal hyperglycemia, results should be confirmed by repeat testing. In a patient with classic symptoms of hyperglycemia or hyperglycemic crisis, random plasma glucose results greater than or equal to 200 mg/dL meet the criteria for diagnosis of diabetes.Reference: Standards of Medical Care in Diabetes 2016, [place] [employer]. Diabetes Care. 2016.39(Suppl 1). Performed By: #### 2 4323-8 ####[facility] [id number] [place] [id number] [place] Potassium [Moles/Vol] 5.7 mmol/L High 3.7-5.1 [facility] Comment on above: Order Comment: Kanu sainz Type: BLOOD SPECIMENOrdering Facility: [facility] Address: [address] [place] [address] Performed By: #### 2 4323-8 ####[facility] [id number] [facility] [address] [address] [place] Protein [Mass/Vol] 6.5 g/dL Normal 6.3-8.0 [facility] Comment on above: Order Comment: Speci men Type: BLOOD SPECIMENOrdering Facility: [facility] Address: [address] [place] [address] Performed By: #### 2 4323-8 ####[facility] [id number] [place] [address] [place] Sodium [Moles/Vol] 135 mmol/L Low 136-144 [facility] Comment on above: Order Comment: Speci men Type: BLOOD SPECIMENOrdering Facility: [facility] Address: [address] [place] [address] Performed By: #### 2 4323-8 ####[facility] [id number] [place] [address] [place] Urea nitrogen [Mass/Vol] 42 mg/dL High 9-24 [facility] Comment on above: Order Comment: Speci men Type: BLOOD SPECIMENOrdering Facility: [facility] Address: [address] [place] [address] Performed By: #### 2 4323-8 ####[facility] [id number] [place] [address] [place] Vancomycin Crescent SerPl-mCncon 02-08-2024 Vancomycin random [Mass/Vol] 16.5 ug/mL Normal 10.0-20.0 [facility] Comment on above: Order Comment: Speci men Type: BLOOD SPECIMENOrdering Facility: [facility] Address: [address] [place] [address] Result Comment: Refe rence ranges and high/low indicator flags are provided as general guidelines only. The treating physician must determine appropriate target levels/dosing based on the specific clinical situation. Performed By: #### 4 091-5 ####[facility] [id number] [place] [address] [place] CBC panel Auto (Bld)on 02-06 Erythrocyte distribution width (RBC) [Ratio] 14.5 % Normal 11.5-15.0 [facility] Comment on above: Order Comment: Speci men Type: BLOOD SPECIMENOrdering Facility: [facility] Address: [address] [place] [address] Performed By: #### 5 8410-2 ####[facility] [id number] [place] [address] [place] Hematocrit (Bld) [Volume fraction] 24.3 % Low 39.0-51.0 [facility] Comment on above: Order Comment: Speci men Type: BLOOD SPECIMENOrdering Facility: [facility] Address: [address] [place] [address] Performed By: #### 5 8410-2 ####[facility] [id number] [place] [address] [place] Hemoglobin (Bld) [Mass/Vol] 8.1 g/dL Low 13.0-17.0 [facility] Comment on above: Order Comment: Speci men Type: BLOOD SPECIMENOrdering Facility: [facility] Address: [address] [place] [address] Performed By: #### 5 8410-2 ####[facility] [id number] [place] [address] [place] MCH (RBC) [Entitic mass] 30.0 pg Normal 26.0-34.0 [facility] Comment on above: Order Comment: Speci men Type: BLOOD SPECIMENOrdering Facility: [facility] Address: [address] [place] [address] Performed By: #### 5 8410-2 ####[facility] [id number] [place] [address] [place] MCHC (RBC) [Mass/Vol] 33.3 g/dL Normal 30.5-36.0 [facility] Comment on above: Order Comment: Speci men Type: BLOOD SPECIMENOrdering Facility: [facility] Address: [address] [place] [address] Performed By: #### 5 8410-2 ####[facility] [id number] [place] [address] [place] MCV (RBC) [Entitic vol] 90.0 fL Normal 80.0-100.0 [facility] Comment on above: Order Comment: Speci men Type: BLOOD SPECIMENOrdering Facility: [facility] Address: [address] [place] [address] Performed By: #### 5 8410-2 ####[facility] [id number] [place] [address] [place] Nucleated RBC (Bld) [#/Vol] 0.03 10*3/uL High <0.01 [facility] Comment on above: Order Comment: Speci men Type: BLOOD SPECIMENOrdering Facility: [facility] Address: [address] [place] [address] Performed By: #### 5 8410-2 ####[facility] [id number] [place] [address] [place] Platelet mean volume (Bld) [Entitic vol] 8.8 fL Low 9.0-12.7 [facility] Comment on above: Order Comment: Speci men Type: BLOOD SPECIMENOrdering Facility: [facility] Address: [address] [place] [address] Performed By: #### 5 8410-2 ####[facility] [id number] [place] [address] [place] Platelets (Bld) [#/Vol] 329 10*3/uL Normal 150-400 [facility] Comment on above: Order Comment: Speci men Type: BLOOD SPECIMENOrdering Facility: [facility] Address: [address] [place] [address] Performed By: #### 5 8410-2 ####[facility] [id number] [place] [address] [place] RBC (Bld) [#/Vol] 2.70 10*6/uL Low 4.20-6.00 [facility] Comment on above: Order Comment: Speci men Type: BLOOD SPECIMENOrdering Facility: [facility] Address: [address] [place] [address] Performed By: #### 5 8410-2 ####[facility] [id number] [place] [address] [place] WBC (Bld) [#/Vol] 9.36 10*3/uL Normal 3.70-11.00 [facility] Comment on above: Order Comment: Speci men Type: BLOOD SPECIMENOrdering Facility: [facility] Address: [address] [place] [address] Performed By: #### 5 8410-2 ####[facility] [id number] [place] [address] [place] Erythrocyte distribution width (RBC) [Ratio] 14.6 % Normal 11.5-15.0 [facility] Comment on above: Order Comment: Speci men Type: BLOOD SPECIMENOrdering Facility: [facility] Address: [address] [place] [address] Performed By: #### 5 8410-2 ####[facility] [id number] [place] [address] [place] Hematocrit (Bld) [Volume fraction] 22.6 % Low 39.0-51.0 [facility] Comment on above: Order Comment: Speci men Type: BLOOD SPECIMENOrdering Facility: [facility] Address: [address] [place] [address] Performed By: #### 5 8410-2 ####[facility] [id number] [place] [address] [place] Hemoglobin (Bld) [Mass/Vol] 7.6 g/dL Low 13.0-17.0 [facility] Comment on above: Order Comment: Speci men Type: BLOOD SPECIMENOrdering Facility: [facility] Address: [address] [place] [address] Performed By: #### 5 8410-2 ####[facility] [id number] [place] [address] [place] MCH (RBC) [Entitic mass] 29.7 pg Normal 26.0-34.0 [facility] Comment on above: Order Comment: Speci men Type: BLOOD SPECIMENOrdering Facility: [facility] Address: [address] [place] [address] Performed By: #### 5 8410-2 ####[facility] [id number] [place] [address] [place] MCHC (RBC) [Mass/Vol] 33.6 g/dL Normal 30.5-36.0 [facility] Comment on above: Order Comment: Speci men Type: BLOOD SPECIMENOrdering Facility: [facility] Address: [address] [place] [address] Performed By: #### 5 8410-2 ####[facility] [id number] [place] [address] [place] MCV (RBC) [Entitic vol] 88.3 fL Normal 80.0-100.0 [facility] Comment on above: Order Comment: Speci men Type: BLOOD SPECIMENOrdering Facility: [facility] Address: [address] [place] [address] Performed By: #### 5 8410-2 ####[facility] [id number] [place] [address] [place] Nucleated RBC (Bld) [#/Vol] 0.02 10*3/uL High <0.01 [facility] Comment on above: Order Comment: Speci men Type: BLOOD SPECIMENOrdering Facility: [facility] Address: [address] [place] [address] Performed By: #### 5 8410-2 ####[facility] [id number] [place] [address] [place] Platelet mean volume (Bld) [Entitic vol] 8.8 fL Low 9.0-12.7 [facility] Comment on above: Order Comment: Speci men Type: BLOOD SPECIMENOrdering Facility: [facility] Address: [address] [place] [address] Performed By: #### 5 8410-2 ####[facility] [id number] [place] [address] [place] Platelets (Bld) [#/Vol] 282 10*3/uL Normal 150-400 [facility] Comment on above: Order Comment: Speci men Type: BLOOD SPECIMENOrdering Facility: [facility] Address: [address] [place] [address] Performed By: #### 5 8410-2 ####[facility] [id number] [place] [address] [place] RBC (Bld) [#/Vol] 2.56 10*6/uL Low 4.20-6.00 [facility] Comment on above: Order Comment: Speci men Type: BLOOD SPECIMENOrdering Facility: [facility] Address: [address] [place] [address] Performed By: #### 5 8410-2 ####[facility] [id number] [place] [id number] [place] WBC (Bld) [#/Vol] 7.16 10*3/uL Normal 3.70-11.00 [facility] Comment on above: Order Comment: Speci men Type: BLOOD SPECIMENOrdering Facility: [facility] Address: [address] [place] [address] Performed By: #### 5 8410-2 ####[facility] [id number] [place] [address] [place] Erythrocyte distribution width (RBC) [Ratio] 14.4 % Normal 11.5-15.0 [facility] Comment on above: Order Comment: Speci men Type: BLOOD SPECIMENOrdering Facility: [facility] Address: [address] [place] [address] Performed By: #### 5 8410-2 ####[facility] [id number] [place] [address] [place] Hematocrit (Bld) [Volume fraction] 22.2 % Low 39.0-51.0 [facility] Comment on above: Order Comment: Speci men Type: BLOOD SPECIMENOrdering Facility: [facility] Address: [address] [place] [address] Performed By: #### 5 8410-2 ####[facility] [id number] [place] [address] [place] Hemoglobin (Bld) [Mass/Vol] 7.5 g/dL Low 13.0-17.0 [facility] Comment on above: Order Comment: Speci men Type: BLOOD SPECIMENOrdering Facility: [facility] Address: [address] [place] [address] Performed By: #### 5 8410-2 ####[facility] [id number] [place] [address] [place] MCH (RBC) [Entitic mass] 30.1 pg Normal 26.0-34.0 [facility] Comment on above: Order Comment: Speci men Type: BLOOD SPECIMENOrdering Facility: [facility] Address: [address] [place] [address] Performed By: #### 5 8410-2 ####[facility] [id number] [place] [address] [place] MCHC (RBC) [Mass/Vol] 33.8 g/dL Normal 30.5-36.0 [facility] Comment on above: Order Comment: Speci men Type: BLOOD SPECIMENOrdering Facility: [facility] Address: [address] [place] [address] Performed By: #### 5 8410-2 ####[facility] [id number] [place] [address] [place] [place] MCV (RBC) [Entitic vol] 89.2 fL Normal 80.0-100.0 [facility] Comment on above: Order Comment: Speci men Type: BLOOD SPECIMENOrdering Facility: [facility] Address: [address] [place] [address] Performed By: #### 5 8410-2 ####[facility] [id number] [place] [address] [place] Nucleated RBC (Bld) [#/Vol] 0.03 10*3/uL High <0.01 [facility] Comment on above: Order Comment: Speci men Type: BLOOD SPECIMENOrdering Facility: [facility] Address: [address] [place] [address] Performed By: #### 5 8410-2 ####[facility] [id number] [place] [address] [place] Platelet mean volume (Bld) [Entitic vol] 8.8 fL Low 9.0-12.7 [facility] Comment on above: Order Comment: Speci men Type: BLOOD SPECIMENOrdering Facility: [facility] Address: [address] [place] [address] Performed By: #### 5 8410-2 ####[facility] [id number] [place] [address] [place] Platelets (Bld) [#/Vol] 294 10*3/uL Normal 150-400 [facility] Comment on above: Order Comment: Speci men Type: BLOOD SPECIMENOrdering Facility: [facility] Address: [address] [place] [address] Performed By: #### 5 8410-2 ####[facility] [id number] [address] [address] [place] RBC (Bld) [#/Vol] 2.49 10*6/uL Low 4.20-6.00 [facility] Comment on above: Order Comment: Speci men Type: BLOOD SPECIMENOrdering Facility: [facility] Address: [address] [place] [address] Performed By: #### 5 8410-2 ####[facility] [id number] [place] [address] [place] WBC (Bld) [#/Vol] 7.87 10*3/uL Normal 3.70-11.00 [facility] Comment on above: Order Comment: Speci men Type: BLOOD SPECIMENOrdering Facility: [facility] Address: [address] [place] [address] Performed By: #### 5 8410-2 ####[facility] [id number] [place] [address] [place] CONSULT PROGon 02-07-2024 CONSULT PROG Normal [facility] Comprehensive metabolic 2000 panelon 02-07-2024 Albumin [Mass/Vol] 1.5 g/dL Low 3.9-4.9 [facility] Comment on above: Order Comment: Speci men Type: BLOOD SPECIMENOrdering Facility: [facility] Address: [address] [place] [address] Performed By: #### 2 4323-8 ####[facility] [id number] [place] [address] [place] ALP [Catalytic activity/Vol] 760 U/L High 38-113 [facility] Comment on above: Order Comment: Speci men Type: BLOOD SPECIMENOrdering Facility: [facility] Address: [address] [place] [address] Performed By: #### 2 4323-8 ####[facility] [id number] [place] [address] [place] ALT [Catalytic activity/Vol] 18 U/L Normal 10-54 [facility] Comment on above: Order Comment: Speci men Type: BLOOD SPECIMENOrdering Facility: [facility] Address: [address] [place] [address] Performed By: #### 2 4323-8 ####[facility] [id number] [place] [address] [place] Anion gap [Moles/Vol] 6 mmol/L Low 9-18 [facility] Comment on above: Order Comment: Speci men Type: BLOOD SPECIMENOrdering Facility: [facility] Address: [address] [place] [address] Performed By: #### 2 4323-8 ####[facility] [id number] [place] [address] [place] AST [Catalytic activity/Vol] 38 U/L Normal 14-40 [facility] Comment on above: Order Comment: Speci men Type: BLOOD SPECIMENOrdering Facility: [facility] Address: [address] [place] [address] Performed By: #### 2 4323-8 ####[facility] [id number] [place] [address] [place] Bilirubin [Mass/Vol] 0.9 mg/dL Normal 0.2-1.3 [facility] Comment on above: Order Comment: Speci men Type: BLOOD SPECIMENOrdering Facility: [facility] Address: [address] [place], [place] [id number] Performed By: #### 2 4323-8 ####[facility] [id number] [place] [address] [place] Calcium [Mass/Vol] 7.8 mg/dL Low 8.5-10.2 [facility] Comment on above: Order Comment: Speci men Type: BLOOD SPECIMENOrdering Facility: [facility] Address: [address] [place] [address] Performed By: #### 2 4323-8 ####[facility] [id number] [place] [address] [place] Chloride [Moles/Vol] 103 mmol/L Normal 97-105 [facility] Comment on above: Order Comment: Speci men Type: BLOOD SPECIMENOrdering Facility: [facility] Address: [address] [place] [address] Performed By: #### 2 4323-8 ####[facility] [id number] [place] [address] [place] CO2 [Moles/Vol] 20 mmol/L Low 22-30 [facility] Comment on above: Order Comment: Speci men Type: BLOOD SPECIMENOrdering Facility: [facility] Address: [address] [place] [address] Performed By: #### 2 4323-8 ####[facility] [id number] [place] [address] [place] Creatinine [Mass/Vol] 1.38 mg/dL High 0.73-1.22 [facility] Comment on above: Order Comment: Speci men Type: BLOOD SPECIMENOrdering Facility: [facility] Address: [address] [place] [address] Performed By: #### 2 4323-8 ####[facility] [id number] [place] [address] [place] Creatinine and Glomerular filtration rate.predicted panel (S/P/Bld) 71 mL/min/1.73m??? Normal >=60 [facility] Comment on above: Order Comment: Speci men Type: BLOOD SPECIMENOrdering Facility: [facility] Address: [address] [place] [address] Result Comment: Janeth mated Glomerular Filtration Rate (eGFR) is calculated using the 2020 CKD-EPI creatinine equation. This equation utilizes serum creatinine, sex, and age as parameters. The creatinine assay has traceable calibration to isotope dilution-mass spectrometry. Refer to KDIGO guidelines for clinical interpretation. In patients with unstable renal function, e.g. those with acute kidney injury, the eGFR may not accurately reflect actual GFR. Performed By: #### 2 4323-8 ####[facility] [id number] [place] [address] [place] Glucose [Mass/Vol] 320 mg/dL High 74-99 [facility] Comment on above: Order Comment: Kanu sainz Type: BLOOD SPECIMENOrdering Facility: [facility] Address: [address] [place] [address] Result Comment: The [place] [employer] (ADA) provides guidance for cutoff values for fasting glucose and random glucose. The ADA defines fasting as no caloric intake for at least 8 hours. Fasting plasma glucose results between 100 to 125 mg/dL indicate increased risk for diabetes (prediabetes).Fasting plasma glucose results greater than or equal to 126 mg/dL meet the criteria for diagnosis of diabetes. In the absence of unequivocal hyperglycemia, results should be confirmed by repeat testing. In a patient with classic symptoms of hyperglycemia or hyperglycemic crisis, random plasma glucose results greater than or equal to 200 mg/dL meet the criteria for diagnosis of diabetes.Reference: Standards of Medical Care in Diabetes 2016, [place] [employer]. Diabetes Care. 2016.39(Suppl 1). Performed By: #### 2 4323-8 ####[facility] [id number] [place] [id number] [place] Potassium [Moles/Vol] 5.1 mmol/L Normal 3.7-5.1 [facility] Comment on above: Order Comment: Kanu sainz Type: BLOOD SPECIMENOrdering Facility: [facility] Address: [address] [place] [id number] Performed By: #### 2 4323-8 ####[facility] [id number] [place] [address] [place] Protein [Mass/Vol] 5.5 g/dL Low 6.3-8.0 [facility] Comment on above: Order Comment: Speci men Type: BLOOD SPECIMENOrdering Facility: [facility] Address: [address] [place] [address] Performed By: #### 2 4323-8 ####[facility] [id number] [place] [address] [place] Sodium [Moles/Vol] 129 mmol/L Low 136-144 [facility] Comment on above: Order Comment: Speci men Type: BLOOD SPECIMENOrdering Facility: [facility] Address: [address] [place] [address] Performed By: #### 2 4323-8 ####[facility] [id number] [place] [address] [place] Urea nitrogen [Mass/Vol] 60 mg/dL High 9-24 [facility] Comment on above: Order Comment: Speci men Type: BLOOD SPECIMENOrdering Facility: [facility] Address: [address] [place] [address] Performed By: #### 2 4323-8 ####[facility] [id number] [place] [address] [place] H pylori Ag Stl Ql IAon 03-0 H. pylori Ag IA Ql (Stl) H.PYLORI EIA RESULT: Negative for Helicobacter pylori antigen by EIA Normal [facility] Comment on above: Performed By: #### 1 7780-8 ####[facility] [id number] [place] [address] [place] THERAPY NTon 02-07-2024 THERAPY NT Normal [facility] THERAPY NT Normal [facility] Trigl SerPl-mCncon Triglyceride [Mass/Vol] 126 mg/dL Normal <150 [facility] Comment on above: Order Comment: Speci men Type: BLOOD SPECIMENOrdering Facility: [facility] Address: [address] [place] [address] Result Comment: <150 mg/dL, Normal 150-199 mg/dL, Borderline high 200-499 mg/dL, High>499 mg/dL, Very highReference:1. National Cholesterol Education Program ATP III Guideline At-A-Glance Quick Desk Reference: National Heart, Lung, and Blood [place]. National Institutes of Health. 2001: NIH Publication No. 01-3305. Performed By: #### 2 571-8 ####[facility] [id number] [place] [address] [place] Triglyceride [Mass/Vol]on FASTING TIME 10 hrs Normal [facility] Comment on above: Order Comment: Speci men Type: BLOOD SPECIMENOrdering Facility: [facility] Address: [address] [place] [address] Performed By: #### 2 571-8 ####[facility] [id number] [place] [address] [place] CASE MANAGEMon 02-06-2024 CASE MANAGEM Normal [facility] CBC panel Auto (Bld)on 02-05 Erythrocyte distribution width (RBC) [Ratio] 14.8 % Normal 11.5-15.0 [facility] Comment on above: Order Comment: Speci men Type: BLOOD SPECIMENOrdering Facility: [facility] Address: [address] [place] [address] Performed By: #### 5 8410-2 ####[facility] [id number] [address] [place] Hematocrit (Bld) [Volume fraction] 23.6 % Low 39.0-51.0 [facility] Comment on above: Order Comment: Speci men Type: BLOOD SPECIMENOrdering Facility: [facility] Address: [address] [place] [address] Performed By: #### 5 8410-2 ####[facility] [id number] [place] [address] [place] Hemoglobin (Bld) [Mass/Vol] 8.3 g/dL Low 13.0-17.0 [facility] Comment on above: Order Comment: Speci men Type: BLOOD SPECIMENOrdering Facility: [facility] Address: [address] [place] [address] Performed By: #### 5 8410-2 ####[facility] [id number] [place] [address] [place] MCH (RBC) [Entitic mass] 30.7 pg Normal 26.0-34.0 [facility] Comment on above: Order Comment: Speci men Type: BLOOD SPECIMENOrdering Facility: [facility] Address: [address] [place] [address] Performed By: #### 5 8410-2 ####[facility] [id number] [place] [address] [place] MCHC (RBC) [Mass/Vol] 35.2 g/dL Normal 30.5-36.0 [facility] Comment on above: Order Comment: Speci men Type: BLOOD SPECIMENOrdering Facility: [facility] Address: [address] [place] [address] Performed By: #### 5 8410-2 ####[facility] [id number] [place] [address] [place] MCV (RBC) [Entitic vol] 87.4 fL Normal 80.0-100.0 [facility] Comment on above: Order Comment: Speci men Type: BLOOD SPECIMENOrdering Facility: [facility] Address: [address] [place] [address] Performed By: #### 5 8410-2 ####[facility] [id number] [place] [address] [place] Nucleated RBC (Bld) [#/Vol] 0.03 10*3/uL High <0.01 [facility] Comment on above: Order Comment: Speci men Type: BLOOD SPECIMENOrdering Facility: [facility] Address: [address] [place] [address] Performed By: #### 5 8410-2 ####[facility] [id number] [place] [address] [place] Platelet mean volume (Bld) [Entitic vol] 9.2 fL Normal 9.0-12.7 [facility] Comment on above: Order Comment: Speci men Type: BLOOD SPECIMENOrdering Facility: [facility] Address: [address] [place] [address] Performed By: #### 5 8410-2 ####[facility] [id number] [place] [address] [place] Platelets (Bld) [#/Vol] 290 10*3/uL Normal 150-400 [facility] Comment on above: Order Comment: Speci men Type: BLOOD SPECIMENOrdering Facility: [facility] Address: [address] [place] [address] Performed By: #### 5 8410-2 ####[facility] [id number] [place] [address] [place] RBC (Bld) [#/Vol] 2.70 10*6/uL Low 4.20-6.00 [facility] Comment on above: Order Comment: Speci men Type: BLOOD SPECIMENOrdering Facility: [facility] Address: [address] [place] [address] Performed By: #### 5 8410-2 ####[facility] [id number] [place] [address] [place] WBC (Bld) [#/Vol] 8.47 10*3/uL Normal 3.70-11.00 [facility] Comment on above: Order Comment: Speci men Type: BLOOD SPECIMENOrdering Facility: [facility] Address: [address] [place] [address] Performed By: #### 5 8410-2 ####[facility] [id number] [place] [address] [place] Erythrocyte distribution width (RBC) [Ratio] 14.6 % Normal 11.5-15.0 [facility] Comment on above: Order Comment: Speci men Type: BLOOD SPECIMENOrdering Facility: [facility] Address: [address] [place] [address] Performed By: #### 5 8410-2 ####[facility] [id number] [place] [address] [place] Hematocrit (Bld) [Volume fraction] 24.1 % Low 39.0-51.0 [facility] Comment on above: Order Comment: Speci men Type: BLOOD SPECIMENOrdering Facility: [facility] Address: [address] [place] [address] Performed By: #### 5 8410-2 ####[facility] [id number] [place] [address] [place] Hemoglobin (Bld) [Mass/Vol] 8.2 g/dL Low 13.0-17.0 [facility] Comment on above: Order Comment: Speci men Type: BLOOD SPECIMENOrdering Facility: [facility] Address: [address] [place] [address] Performed By: #### 5 8410-2 ####[facility] [id number] [place] [address] [place] MCH (RBC) [Entitic mass] 29.7 pg Normal 26.0-34.0 [facility] Comment on above: Order Comment: Speci men Type: BLOOD SPECIMENOrdering Facility: [facility] Address: [address] [place] [address] Performed By: #### 5 8410-2 ####[facility] [id number] [place] [address] [place] MCHC (RBC) [Mass/Vol] 34.0 g/dL Normal 30.5-36.0 [facility] Comment on above: Order Comment: Speci men Type: BLOOD SPECIMENOrdering Facility: [facility] Address: [address] [place] [address] Performed By: #### 5 8410-2 ####[facility] [id number] [place] [address] [place] MCV (RBC) [Entitic vol] 87.3 fL Normal 80.0-100.0 [facility] Comment on above: Order Comment: Speci men Type: BLOOD SPECIMENOrdering Facility: [facility] Address: [address] [place] [address] Performed By: #### 5 8410-2 ####[facility] [id number] [place] [address] [place] Nucleated RBC (Bld) [#/Vol] 0.03 10*3/uL High <0.01 [facility] Comment on above: Order Comment: Speci men Type: BLOOD SPECIMENOrdering Facility: [facility] Address: [address] [place] [address] Performed By: #### 5 8410-2 ####[facility] [id number] [place] [address] [place] Platelet mean volume (Bld) [Entitic vol] 9.2 fL Normal 9.0-12.7 [facility] Comment on above: Order Comment: Speci men Type: BLOOD SPECIMENOrdering Facility: [facility] Address: [address] [place] [address] Performed By: #### 5 8410-2 ####[facility] [id number] [place] [address] [place] Platelets (Bld) [#/Vol] 274 10*3/uL Normal 150-400 [facility] Comment on above: Order Comment: Speci men Type: BLOOD SPECIMENOrdering Facility: [facility] Address: [address] [place] [address] Performed By: #### 5 8410-2 ####[facility] [id number] [place] [address] [place] RBC (Bld) [#/Vol] 2.76 10*6/uL Low 4.20-6.00 [facility] Comment on above: Order Comment: Speci men Type: BLOOD SPECIMENOrdering Facility: [facility] Address: [address] [place] [address] Performed By: #### 5 8410-2 ####[facility] [id number] [place] [address] [place] WBC (Bld) [#/Vol] 9.29 10*3/uL Normal 3.70-11.00 [facility] Comment on above: Order Comment: Speci men Type: BLOOD SPECIMENOrdering Facility: [facility] Address: [address] [place] [address] Performed By: #### 5 8410-2 ####[facility] [id number] [place] [address] [place] Erythrocyte distribution width (RBC) [Ratio] 14.4 % Normal 11.5-15.0 [facility] Comment on above: Order Comment: Speci men Type: BLOOD SPECIMENOrdering Facility: [facility] Address: [address] [place] [address] Performed By: #### 5 8410-2 ####[facility] [id number] [place] [address] [place] Hematocrit (Bld) [Volume fraction] 24.2 % Low 39.0-51.0 [facility] Comment on above: Order Comment: Speci men Type: BLOOD SPECIMENOrdering Facility: [facility] Address: [address] [place] [address] Performed By: #### 5 8410-2 ####[facility] [id number] [place] [address] [place] Hemoglobin (Bld) [Mass/Vol] 8.4 g/dL Low 13.0-17.0 [facility] Comment on above: Order Comment: Speci men Type: BLOOD SPECIMENOrdering Facility: [facility] Address: [address] [place] [address] Performed By: #### 5 8410-2 ####[facility] [id number] [place] [address] [place] MCH (RBC) [Entitic mass] 30.1 pg Normal 26.0-34.0 [facility] Comment on above: Order Comment: Speci men Type: BLOOD SPECIMENOrdering Facility: [facility] Address: [address] [place] [address] Performed By: #### 5 8410-2 ####[facility] [id number] [place] [address] [place] MCHC (RBC) [Mass/Vol] 34.7 g/dL Normal 30.5-36.0 [facility] Comment on above: Order Comment: Speci men Type: BLOOD SPECIMENOrdering Facility: [facility] Address: [address] [place] [address] Performed By: #### 5 8410-2 ####[facility] [id number] [place] [address] [place] MCV (RBC) [Entitic vol] 86.7 fL Normal 80.0-100.0 [facility] Comment on above: Order Comment: Speci men Type: BLOOD SPECIMENOrdering Facility: [facility] Address: [address] [place] [address] Performed By: #### 5 8410-2 ####[facility] [id number] [place] [id number] [place] Nucleated RBC (Bld) [#/Vol] 0.02 10*3/uL High <0.01 [facility] Comment on above: Order Comment: Speci men Type: BLOOD SPECIMENOrdering Facility: [facility] Address: [address] [place] [address] Performed By: #### 5 8410-2 ####[facility] [id number] [place] [address] [place] Platelet mean volume (Bld) [Entitic vol] 8.9 fL Low 9.0-12.7 [facility] Comment on above: Order Comment: Speci men Type: BLOOD SPECIMENOrdering Facility: [facility] Address: [address] [place] [address] Performed By: #### 5 8410-2 ####[facility] [id number] [place] [address] [place] Platelets (Bld) [#/Vol] 321 10*3/uL Normal 150-400 [facility] Comment on above: Order Comment: Speci men Type: BLOOD SPECIMENOrdering Facility: [facility] Address: [address] [place] [address] Performed By: #### 5 8410-2 ####[facility] [id number] [place] [address] [place] RBC (Bld) [#/Vol] 2.79 10*6/uL Low 4.20-6.00 [facility] Comment on above: Order Comment: Speci men Type: BLOOD SPECIMENOrdering Facility: [facility] Address: [address] [place] [address] Performed By: #### 5 8410-2 ####[facility] [id number] [place] [address] [place] WBC (Bld) [#/Vol] 11.72 10*3/uL High 3.70-11.00 [facility] Comment on above: Order Comment: Speci men Type: BLOOD SPECIMENOrdering Facility: [facility] Address: [address] [place] [address] Performed By: #### 5 8410-2 ####[facility] [id number] [place] [address] [place] CONSULT PROGon 02-06-2024 CONSULT PROG Normal [facility] NUTRITIONon 02-06-2024 NUTRITION Normal [facility] US ABD LIVER VASCULARon 03-0 US ABD LIVER VASCULAR Normal [facility] US DOPPLER COMPLETEon 2023 US DOPPLER COMPLETE Normal [facility] Basic metabolic 2000 panelon 02-05-2024 Anion gap [Moles/Vol] 8 mmol/L Low 9-18 [facility] Comment on above: Order Comment: Speci men Type: BLOOD SPECIMENOrdering Facility: [facility] Address: [address] [place] [address] Performed By: #### 2 132-9, 57446-5, 3034-6, 66079-9, 4542-7, 2276-4 ####[facility] [id number] [place] [address] [place] Calcium [Mass/Vol] 6.9 mg/dL Low 8.5-10.2 [facility] Comment on above: Order Comment: Speci men Type: BLOOD SPECIMENOrdering Facility: [facility] Address: [address] [place] [address] Performed By: #### 2 132-9, 13821-2, 3034-6, 76274-1, 4542-7, 2276-4 ####[facility] [id number] [place] [address] [place] Chloride [Moles/Vol] 100 mmol/L Normal 97-105 [facility] Comment on above: Order Comment: Speci men Type: BLOOD SPECIMENOrdering Facility: [facility] Address: [address] [place] [address] Performed By: #### 2 132-9, 86181-4, 3034-6, 27380-7, 4542-7, 2276-4 ####[facility] [id number] [place] [id number] [place] CO2 [Moles/Vol] 19 mmol/L Low 22-30 [facility] Comment on above: Order Comment: Speci men Type: BLOOD SPECIMENOrdering Facility: [facility] Address: [address] [place] [address] Performed By: #### 2 132-9, 30180-2, 3034-6, 88800-1, 4542-7, 2276-4 ####[facility] [id number] [place] [id number] [place] Creatinine [Mass/Vol] 1.51 mg/dL High 0.73-1.22 [facility] Comment on above: Order Comment: Speci men Type: BLOOD SPECIMENOrdering Facility: [facility] [facility] Address: [address] [place] [address] Performed By: #### 2 132-9, 33009-6, 3034-6, 09249-9, 4542-7, 2276-4 ####[facility] [id number] [place] [id number] [place] Creatinine and Glomerular filtration rate.predicted panel (S/P/Bld) 63 mL/min/1.73m??? Normal >=60 [facility] Comment on above: Order Comment: Speci men Type: BLOOD SPECIMENOrdering Facility: [facility] Address: [address] [place] [address] Result Comment: Janeth mated Glomerular Filtration Rate (eGFR) is calculated using the 2020 CKD-EPI creatinine equation. This equation utilizes serum creatinine, sex, and age as parameters. The creatinine assay has traceable calibration to isotope dilution-mass spectrometry. Refer to KDIGO guidelines for clinical interpretation. In patients with unstable renal function, e.g. those with acute kidney injury, the eGFR may not accurately reflect actual GFR. Performed By: #### 2 132-9, 78177-6, 3034-6, 00476-3, 4542-7, 2276-4 ####[facility] [id number] [address] [address] [place] Glucose [Mass/Vol] 61 mg/dL Low 74-99 [facility] Comment on above: Order Comment: Speci men Type: BLOOD SPECIMENOrdering Facility: [facility] Address: [address] [place] [address] Result Comment: The [place] [employer] (ADA) provides guidance for cutoff values for fasting glucose and random glucose. The ADA defines fasting as no caloric intake for at least 8 hours. Fasting plasma glucose results between 100 to 125 mg/dL indicate increased risk for diabetes (prediabetes).Fasting plasma glucose results greater than or equal to 126 mg/dL meet the criteria for diagnosis of diabetes. In the absence of unequivocal hyperglycemia, results should be confirmed by repeat testing. In a patient with classic symptoms of hyperglycemia or hyperglycemic crisis, random plasma glucose results greater than or equal to 200 mg/dL meet the criteria for diagnosis of diabetes.Reference: Standards of Medical Care in Diabetes 2016, [place] [employer]. Diabetes Care. 2016.39(Suppl 1). Performed By: #### 2 132-9, 46275-3, 3034-6, 34396-8, 4542-7, 2276-4 ####[facility] [id number] [address] [address] [place] Potassium [Moles/Vol] 4.6 mmol/L Normal 3.7-5.1 [facility] Comment on above: Order Comment: Paruli men Type: BLOOD SPECIMENOrdering Facility: [facility] Address: [address] [place] [address] Performed By: #### 2 132-9, 92289-2, 3034-6, 37297-3, 4542-7, 2276-4 ####[facility] [id number] [place] [address] [place] Sodium [Moles/Vol] 127 mmol/L Low 136-144 [facility] Comment on above: Order Comment: Speci men Type: BLOOD SPECIMENOrdering Facility: [facility] Address: [address] [place] [address] Performed By: #### 2 132-9, 46478-5, 3034-6, 47173-0, 4542-7, 2276-4 ####[facility] [id number] [place] [address] [place] Urea nitrogen [Mass/Vol] 74 mg/dL High 9-24 [facility] Comment on above: Order Comment: Speci men Type: BLOOD SPECIMENOrdering Facility: [facility] Address: [address] [place] [address] Performed By: #### 2 132-9, 31879-4, 3034-6, 95075-1, 4542-7, 2276-4 ####[facility] [id number] [place] [address] [place] CBC W Auto Differential pane l (Bld)on 02-05-2024 Basophils (Bld) [#/Vol] 0.07 10*3/uL Normal <0.11 [facility] Comment on above: Order Comment: Speci men Type: BLOOD SPECIMENOrdering Facility: [facility] Address: [address] [place] [address] Performed By: #### 5 7021-8, 55141-9 ####[facility] [id number] [place] [address] [place] Basophils/100 WBC (Bld) 0.6 % Normal [facility] Comment on above: Order Comment: Speci men Type: BLOOD SPECIMENOrdering Facility: [facility] Address: [address] [place] [address] Performed By: #### 5 7021-8, 56013-1 ####[facility] [id number] [place] [address] [place] Differential cell count method Nom (Bld) Auto Normal [facility] Comment on above: Order Comment: Speci men Type: BLOOD SPECIMENOrdering Facility: [facility] Address: [address] [place] [address] Performed By: #### 5 7021-8, 64208-4 ####[facility] [id number] [place] [address] [place] Eosinophils (Bld) [#/Vol] 0.18 10*3/uL Normal <0.46 [facility] Comment on above: Order Comment: Speci men Type: BLOOD SPECIMENOrdering Facility: [facility] Address: [address] [place] [address] Performed By: #### 5 7021-8, 78230-2 ####[facility] [id number] [place] [address] [place] Eosinophils/100 WBC (Bld) 1.5 % Normal [facility] Comment on above: Order Comment: Speci men Type: BLOOD SPECIMENOrdering Facility: [facility] Address: [address] [place] [address] Performed By: #### 5 7021-8, 79474-7 ####[facility] [id number] [place] [address] [place] Erythrocyte distribution width (RBC) [Ratio] 14.6 % Normal 11.5-15.0 [facility] Comment on above: Order Comment: Speci men Type: BLOOD SPECIMENOrdering Facility: [facility] Address: [address] [place] [address] Performed By: #### 5 7021-8, 33367-7 ####[facility] [id number] [place] [address] [place] Hematocrit (Bld) [Volume fraction] 15.6 % Low 39.0-51.0 [facility] Comment on above: Order Comment: Speci men Type: BLOOD SPECIMENOrdering Facility: [facility] Address: [address] [place] [address] Performed By: #### 5 7021-8, 74047-4 ####[facility] [id number] [place] [address] [place] Hemoglobin (Bld) [Mass/Vol] 5.2 g/dL Critically low 13.0-17.0 [facility] Comment on above: Order Comment: Speci men Type: BLOOD SPECIMENOrdering Facility: [facility] Address: [address] [place] [address] Result Comment: No c lot detected. Performed By: #### 5 7021-8, 48369-7 ####[facility] [id number] [place] [address] [place] Immature granulocytes (Bld) [#/Vol] 0.10 10*3/uL High <0.10 [facility] Comment on above: Order Comment: Speci men Type: BLOOD SPECIMENOrdering Facility: [facility] Address: [address] [place] [address] Performed By: #### 5 7021-8, 69283-3 ####[facility] [id number] [place] [address] [place] Immature granulocytes/100 WBC (Bld) 0.8 % Normal [facility] Comment on above: Order Comment: Speci men Type: BLOOD SPECIMENOrdering Facility: [facility] Address: [address] [place] [address] Performed By: #### 5 7021-8, 45686-5 ####[facility] [id number] [place] [address] [place] Lymphocytes (Bld) [#/Vol] 1.52 10*3/uL Normal 1.00-4.00 [facility] Comment on above: Order Comment: Speci men Type: BLOOD SPECIMENOrdering Facility: [facility] Address: [address] [place] [address] Performed By: #### 5 7021-8, 38181-7 ####[facility] [id number] [place] [address] [place] Lymphocytes/100 WBC (Bld) 12.6 % Normal [facility] Comment on above: Order Comment: Speci men Type: BLOOD SPECIMENOrdering Facility: [facility] Address: [address] [place] [address] Performed By: #### 5 7021-8, 32149-3 ####[facility] [id number] [place] [address] [place] MCH (RBC) [Entitic mass] 29.7 pg Normal 26.0-34.0 [facility] Comment on above: Order Comment: Speci men Type: BLOOD SPECIMENOrdering Facility: [facility] Address: [address] [place] [address] Performed By: #### 5 7021-8, 81134-9 ####[facility] [id number] [place] [address] [place] MCHC (RBC) [Mass/Vol] 33.3 g/dL Normal 30.5-36.0 [facility] Comment on above: Order Comment: Speci men Type: BLOOD SPECIMENOrdering Facility: [facility] Address: [address] [place] [address] Performed By: #### 5 7021-8, 63949-3 ####[facility] [id number] [place] [address] [place] MCV (RBC) [Entitic vol] 89.1 fL Normal 80.0-100.0 [facility] Comment on above: Order Comment: Speci men Type: BLOOD SPECIMENOrdering Facility: [facility] Address: [address] [place] [address] Performed By: #### 5 7021-8, 13028-5 ####[facility] [id number] [place] [address] [place] Monocytes (Bld) [#/Vol] 0.94 10*3/uL High <0.87 [facility] Comment on above: Order Comment: Speci men Type: BLOOD SPECIMENOrdering Facility: [facility] Address: [address] [place] [address] Performed By: #### 5 7021-8, 78196-0 ####[facility] [id number] [place] [address] [place] Monocytes/100 WBC (Bld) 7.8 % Normal [facility] Comment on above: Order Comment: Speci men Type: BLOOD SPECIMENOrdering Facility: [facility] Address: [address] [place] [address] Performed By: #### 5 7021-8, 14489-7 ####[facility] [id number] [place] [address] [place] Neutrophils (Bld) [#/Vol] 9.30 10*3/uL High 1.45-7.50 [facility] Comment on above: Order Comment: Speci men Type: BLOOD SPECIMENOrdering Facility: [facility] Address: [address] [place] [address] Performed By: #### 5 7021-8, 24205-0 ####[facility] [id number] [place] [address] [place] Neutrophils/100 WBC (Bld) 76.7 % Normal [facility] Comment on above: Order Comment: Speci men Type: BLOOD SPECIMENOrdering Facility: [facility] Address: [address] [place] [address] Performed By: #### 5 7021-8, 94323-9 ####[facility] [id number] [place] [address] [place] Nucleated RBC (Bld) [#/Vol] 10*3/uL Normal <0.01 [facility] Comment on above: Order Comment: Speci men Type: BLOOD SPECIMENOrdering Facility: [facility] Address: [address] [place] [address] Performed By: #### 5 7021-8, 02559-6 ####[facility] [id number] [place] [address] [place] Nucleated RBC/100 WBC (Bld) [Ratio] 0.0 /100 WBC Normal [facility] Comment on above: Order Comment: Speci men Type: BLOOD SPECIMENOrdering Facility: [facility] Address: [address] [place] [address] Performed By: #### 5 7021-8, 69450-7 ####[facility] [id number] [place] [address] [place] Platelet mean volume (Bld) [Entitic vol] 8.8 fL Low 9.0-12.7 [facility] Comment on above: Order Comment: Speci men Type: BLOOD SPECIMENOrdering Facility: [facility] Address: [address] [place] [address] Performed By: #### 5 7021-8, 70576-0 ####[facility] [id number] [place] [address] [place] Platelets (Bld) [#/Vol] 345 10*3/uL Normal 150-400 [facility] Comment on above: Order Comment: Speci men Type: BLOOD SPECIMENOrdering Facility: [facility] Address: [address] [place] [address] Performed By: #### 5 7021-8, 27518-9 ####[facility] [id number] [place] [address] [place] RBC (Bld) [#/Vol] 1.75 10*6/uL Low 4.20-6.00 [facility] Comment on above: Order Comment: Speci men Type: BLOOD SPECIMENOrdering Facility: [facility] Address: [address] [place] [address] Performed By: #### 5 7021-8, 28436-8 ####[facility] [id number] [place] [address] [place] WBC (Bld) [#/Vol] 12.11 10*3/uL High 3.70-11.00 [facility] Comment on above: Order Comment: Speci men Type: BLOOD SPECIMENOrdering Facility: [facility] Address: [address] [place] [address] Performed By: #### 5 7021-8, 09784-3 ####[facility] [id number] [place] [address] [place] Basophils (Bld) [#/Vol] 0.07 10*3/uL Normal <0.11 [facility] Comment on above: Order Comment: Speci men Type: BLOOD SPECIMENOrdering Facility: [facility] Address: [address] [place] [address] Performed By: #### 5 7021-8 ####[facility] [id number] [place] [address] [place] Basophils/100 WBC (Bld) 0.5 % Normal [facility] Comment on above: Order Comment: Speci men Type: BLOOD SPECIMENOrdering Facility: [facility] Address: [address] [place] [address] Performed By: #### 5 7021-8 ####[facility] [id number] [place] [address] [place] Differential cell count method Nom (Bld) Auto Normal [facility] Comment on above: Order Comment: Speci men Type: BLOOD SPECIMENOrdering Facility: [facility] Address: [address] [place] [address] Performed By: #### 5 7021-8 ####[facility] [id number] [place] [address] [place] Eosinophils (Bld) [#/Vol] 0.22 10*3/uL Normal <0.46 [facility] Comment on above: Order Comment: Speci men Type: BLOOD SPECIMENOrdering Facility: [facility] Address: [address] [place] [address] Performed By: #### 5 7021-8 ####[facility] [id number] [place] [address] [place] Eosinophils/100 WBC (Bld) 1.5 % Normal [facility] Comment on above: Order Comment: Speci men Type: BLOOD SPECIMENOrdering Facility: [facility] Address: [address] [place] [address] Performed By: #### 5 7021-8 ####[facility] [id number] [place] [address] [place] Erythrocyte distribution width (RBC) [Ratio] 14.1 % Normal 11.5-15.0 [facility] Comment on above: Order Comment: Speci men Type: BLOOD SPECIMENOrdering Facility: [facility] Address: [address] [place] [address] Performed By: #### 5 7021-8 ####[facility] [id number] [place] [address] [place] Hematocrit (Bld) [Volume fraction] 15.7 % Low 39.0-51.0 [facility] Comment on above: Order Comment: Speci men Type: BLOOD SPECIMENOrdering Facility: [facility] Address: [address] [place] [address] Performed By: #### 5 7021-8 ####[facility] [id number] [place] [address] [place] Hemoglobin (Bld) [Mass/Vol] 5.3 g/dL Critically low 13.0-17.0 [facility] Comment on above: Order Comment: Speci men Type: BLOOD SPECIMENOrdering Facility: [facility] Address: [address] [place] [address] Result Comment: No c lot detected. Performed By: #### 5 7021-8 ####[facility] [id number] [place] [address] [place] Immature granulocytes (Bld) [#/Vol] 0.15 10*3/uL High <0.10 [facility] Comment on above: Order Comment: Speci men Type: BLOOD SPECIMENOrdering Facility: [facility] Address: [address] [place] [address] Performed By: #### 5 7021-8 ####[facility] [id number] [place] [address] [place] Immature granulocytes/100 WBC (Bld) 1.0 % Normal [facility] Comment on above: Order Comment: Speci men Type: BLOOD SPECIMENOrdering Facility: [facility] Address: [address] [place] [address] Performed By: #### 5 7021-8 ####[facility] [id number] [place] [address] [place] Lymphocytes (Bld) [#/Vol] 2.03 10*3/uL Normal 1.00-4.00 [facility] Comment on above: Order Comment: Speci men Type: BLOOD SPECIMENOrdering Facility: [facility] Address: [address] [place] [address] Performed By: #### 5 7021-8 ####[facility] [id number] [place] [address] [place] Lymphocytes/100 WBC (Bld) 14.2 % Normal [facility] Comment on above: Order Comment: Speci men Type: BLOOD SPECIMENOrdering Facility: [facility] Address: [address] [place] [address] Performed By: #### 5 7021-8 ####[facility] [id number] [place] [address] [place] MCH (RBC) [Entitic mass] 29.8 pg Normal 26.0-34.0 [facility] Comment on above: Order Comment: Speci men Type: BLOOD SPECIMENOrdering Facility: [facility] Address: [address] [place] [address] Performed By: #### 5 7021-8 ####[facility] [id number] [place] [address] [place] MCHC (RBC) [Mass/Vol] 33.8 g/dL Normal 30.5-36.0 [facility] Comment on above: Order Comment: Speci men Type: BLOOD SPECIMENOrdering Facility: [facility] Address: [address] [place] [address] Performed By: #### 5 7021-8 ####[facility] [id number] [place] [address] [place] MCV (RBC) [Entitic vol] 88.2 fL Normal 80.0-100.0 [facility] Comment on above: Order Comment: Speci men Type: BLOOD SPECIMENOrdering Facility: [facility] Address: [address] [place] [address] Performed By: #### 5 7021-8 ####[facility] [id number] [place] [address] [place] Monocytes (Bld) [#/Vol] 1.54 10*3/uL High <0.87 [facility] Comment on above: Order Comment: Speci men Type: BLOOD SPECIMENOrdering Facility: [facility] Address: [address] [place] [address] Performed By: #### 5 7021-8 ####[facility] [id number] [place] [address] [place] Monocytes/100 WBC (Bld) 10.8 % Normal [facility] Comment on above: Order Comment: Speci men Type: BLOOD SPECIMENOrdering Facility: [facility] Address: [address] [place] [address] Performed By: #### 5 7021-8 ####[facility] [id number] [place] [address] [place] Neutrophils (Bld) [#/Vol] 10.28 10*3/uL High 1.45-7.50 [facility] Comment on above: Order Comment: Speci men Type: BLOOD SPECIMENOrdering Facility: [facility] Address: [address] [place] [address] Performed By: #### 5 7021-8 ####[facility] [id number] [place] [address] [place] Neutrophils/100 WBC (Bld) 72.0 % Normal [facility] Comment on above: Order Comment: Speci men Type: BLOOD SPECIMENOrdering Facility: [facility] Address: [address] [place] [address] Performed By: #### 5 7021-8 ####[facility] [id number] [place] [address] [place] Nucleated RBC (Bld) [#/Vol] 10*3/uL Normal <0.01 [facility] Comment on above: Order Comment: Speci men Type: BLOOD SPECIMENOrdering Facility: [facility] Address: [address] [place] [address] Performed By: #### 5 7021-8 ####[facility] [id number] [place] [address] [place] Nucleated RBC/100 WBC (Bld) [Ratio] 0.0 /100 WBC Normal [facility] Comment on above: Order Comment: Speci men Type: BLOOD SPECIMENOrdering Facility: [facility] Address: [address] [place] [address] Performed By: #### 5 7021-8 ####[facility] [id number] [place] [address] [place] Platelet mean volume (Bld) [Entitic vol] 9.0 fL Normal 9.0-12.7 [facility] Comment on above: Order Comment: Speci men Type: BLOOD SPECIMENOrdering Facility: [facility] Address: [address] [place] [address] Performed By: #### 5 7021-8 ####[facility] [id number] [place] [address] [place] Platelets (Bld) [#/Vol] 380 10*3/uL Normal 150-400 [facility] Comment on above: Order Comment: Speci men Type: BLOOD SPECIMENOrdering Facility: [facility] Address: [address] [place] [address] Performed By: #### 5 7021-8 ####[facility] [id number] [place] [address] [place] RBC (Bld) [#/Vol] 1.78 10*6/uL Low 4.20-6.00 [facility] Comment on above: Order Comment: Speci men Type: BLOOD SPECIMENOrdering Facility: [facility] Address: [address] [place] [address] Performed By: #### 5 7021-8 ####[facility] [id number] [place] [address] [place] WBC (Bld) [#/Vol] 14.29 10*3/uL High 3.70-11.00 [facility] Comment on above: Order Comment: Speci men Type: BLOOD SPECIMENOrdering Facility: [facility] Address: [address] [place] [address] Performed By: #### 5 7021-8 ####[facility] [id number] [place] [address] [place] CBC panel Auto (Bld)on 02-04 Erythrocyte distribution width (RBC) [Ratio] 14.3 % Normal 11.5-15.0 [facility] Comment on above: Order Comment: Speci men Type: BLOOD SPECIMENOrdering Facility: [facility] Address: [address] [place] [address] Performed By: #### 5 8410-2 ####[facility] [id number] [place] [address] [place] Hematocrit (Bld) [Volume fraction] 24.2 % Low 39.0-51.0 [facility] Comment on above: Order Comment: Speci men Type: BLOOD SPECIMENOrdering Facility: [facility] Address: [address] [place] [address] Performed By: #### 5 8410-2 ####[facility] [id number] [place] [address] [place] Hemoglobin (Bld) [Mass/Vol] 8.5 g/dL Low 13.0-17.0 [facility] Comment on above: Order Comment: Speci men Type: BLOOD SPECIMENOrdering Facility: [facility] Address: [address] [place] [address] Performed By: #### 5 8410-2 ####[facility] [id number] [place] [address] [place] MCH (RBC) [Entitic mass] 30.4 pg Normal 26.0-34.0 [facility] Comment on above: Order Comment: Speci men Type: BLOOD SPECIMENOrdering Facility: [facility] Address: [address] [place] [address] Performed By: #### 5 8410-2 ####[facility] [id number] [place] [address] [place] MCHC (RBC) [Mass/Vol] 35.1 g/dL Normal 30.5-36.0 [facility] Comment on above: Order Comment: Speci men Type: BLOOD SPECIMENOrdering Facility: [facility] Address: [address] [place] [address] Performed By: #### 5 8410-2 ####[facility] [id number] [place] [address] [place] MCV (RBC) [Entitic vol] 86.4 fL Normal 80.0-100.0 [facility] Comment on above: Order Comment: Speci men Type: BLOOD SPECIMENOrdering Facility: [facility] Address: [address] [place] [address] Performed By: #### 5 8410-2 ####[facility] [id number] [place] [address] [place] Nucleated RBC (Bld) [#/Vol] 0.02 10*3/uL High <0.01 [facility] Comment on above: Order Comment: Speci men Type: BLOOD SPECIMENOrdering Facility: [facility] Address: [address] [place] [address] Performed By: #### 5 8410-2 ####[facility] [id number] [place] [address] [place] Platelet mean volume (Bld) [Entitic vol] 8.8 fL Low 9.0-12.7 [facility] Comment on above: Order Comment: Speci men Type: BLOOD SPECIMENOrdering Facility: [facility] Address: [address] [place] [address] Performed By: #### 5 8410-2 ####[facility] [id number] [place] [address] [place] Platelets (Bld) [#/Vol] 317 10*3/uL Normal 150-400 [facility] Comment on above: Order Comment: Speci men Type: BLOOD SPECIMENOrdering Facility: [facility] Address: [address] [place] [address] Performed By: #### 5 8410-2 ####[facility] [id number] [place] [address] [place] RBC (Bld) [#/Vol] 2.80 10*6/uL Low 4.20-6.00 [facility] Comment on above: Order Comment: Speci men Type: BLOOD SPECIMENOrdering Facility: [facility] Address: [address] [place] [address] Performed By: #### 5 8410-2 ####[facility] [id number] [place] [address] [place] WBC (Bld) [#/Vol] 13.06 10*3/uL High 3.70-11.00 [facility] Comment on above: Order Comment: Speci men Type: BLOOD SPECIMENOrdering Facility: [facility] Address: [address] [place] [address] Performed By: #### 5 8410-2 ####[facility] [id number] [place] [address] [place] Erythrocyte distribution width (RBC) [Ratio] 13.4 % Normal 11.5-15.0 [facility] Comment on above: Order Comment: Speci men Type: BLOOD SPECIMENOrdering Facility: [facility] Address: [address] [place] [address] Performed By: #### 5 8410-2 ####[facility] [id number] [place] [address] [place] Hematocrit (Bld) [Volume fraction] 24.3 % Low 39.0-51.0 [facility] Comment on above: Order Comment: Speci men Type: BLOOD SPECIMENOrdering Facility: [facility] Address: [address] [place] [address] Performed By: #### 5 8410-2 ####[facility] [id number] [place] [address] [place] Hemoglobin (Bld) [Mass/Vol] 8.6 g/dL Low 13.0-17.0 [facility] Comment on above: Order Comment: Speci men Type: BLOOD SPECIMENOrdering Facility: [facility] Address: [address] [place] [address] Performed By: #### 5 8410-2 ####[facility] [id number] [place] [address] [place] MCH (RBC) [Entitic mass] 30.7 pg Normal 26.0-34.0 [facility] Comment on above: Order Comment: Speci men Type: BLOOD SPECIMENOrdering Facility: [facility] Address: [address] [place] [address] Performed By: #### 5 8410-2 ####[facility] [id number] [place] [address] [place] MCHC (RBC) [Mass/Vol] 35.4 g/dL Normal 30.5-36.0 [facility] Comment on above: Order Comment: Speci men Type: BLOOD SPECIMENOrdering Facility: [facility] Address: [address] [place] [address] Performed By: #### 5 8410-2 ####[facility] [id number] [place] [address] [place] MCV (RBC) [Entitic vol] 86.8 fL Normal 80.0-100.0 [facility] Comment on above: Order Comment: Speci men Type: BLOOD SPECIMENOrdering Facility: [facility] Address: [address] [place] [address] Performed By: #### 5 8410-2 ####[facility] [id number] [place] [address] [place] Nucleated RBC (Bld) [#/Vol] 10*3/uL Normal <0.01 [facility] Comment on above: Order Comment: Speci men Type: BLOOD SPECIMENOrdering Facility: [facility] Address: [address] [place] [address] Performed By: #### 5 8410-2 ####[facility] [id number] [place] [address] [place] Platelet mean volume (Bld) [Entitic vol] 8.8 fL Low 9.0-12.7 [facility] Comment on above: Order Comment: Speci men Type: BLOOD SPECIMENOrdering Facility: [facility] Address: [address] [place] [address] Performed By: #### 5 8410-2 ####[facility] [id number] [place] [address] [place] Platelets (Bld) [#/Vol] 315 10*3/uL Normal 150-400 [facility] Comment on above: Order Comment: Speci men Type: BLOOD SPECIMENOrdering Facility: [facility] Address: [address] [place] [address] Performed By: #### 5 8410-2 ####[facility] [id number] [place] [address] [place] RBC (Bld) [#/Vol] 2.80 10*6/uL Low 4.20-6.00 [facility] Comment on above: Order Comment: Speci men Type: BLOOD SPECIMENOrdering Facility: [facility] Address: [address] [place] [address] Performed By: #### 5 8410-2 ####[facility] [id number] [place] [address] [place] WBC (Bld) [#/Vol] 12.25 10*3/uL High 3.70-11.00 [facility] Comment on above: Order Comment: Speci men Type: BLOOD SPECIMENOrdering Facility: [facility] Address: [address] [place] [address] Performed By: #### 5 8410-2 ####[facility] [id number] [place] [address] [place] Erythrocyte distribution width (RBC) [Ratio] 14.6 % Normal 11.5-15.0 [facility] Comment on above: Order Comment: Speci men Type: BLOOD SPECIMENOrdering Facility: [facility] Address: [address] [place] [address] Performed By: #### 5 8410-2 ####[facility] [id number] [place] [address] [place] Hematocrit (Bld) [Volume fraction] 14.1 % Critically low 39.0-51.0 [facility] Comment on above: Order Comment: Speci men Type: BLOOD SPECIMENOrdering Facility: [facility] Address: [address] [place] [address] Result Comment: No c lot detected. Performed By: #### 5 8410-2 ####[facility] [id number] [place] [address] [place] Hemoglobin (Bld) [Mass/Vol] 4.7 g/dL Critically low 13.0-17.0 [facility] Comment on above: Order Comment: Speci men Type: BLOOD SPECIMENOrdering Facility: [facility] Address: [address] [place] [address] Result Comment: No c lot detected. Performed By: #### 5 8410-2 ####[facility] [id number] [place] [address] [place] MCH (RBC) [Entitic mass] 29.4 pg Normal 26.0-34.0 [facility] Comment on above: Order Comment: Speci men Type: BLOOD SPECIMENOrdering Facility: [facility] Address: [address] [place] [address] Performed By: #### 5 8410-2 ####[facility] [id number] [place] [address] [place] MCHC (RBC) [Mass/Vol] 33.3 g/dL Normal 30.5-36.0 [facility] Comment on above: Order Comment: Speci men Type: BLOOD SPECIMENOrdering Facility: [facility] Address: [address] [place] [address] Performed By: #### 5 8410-2 ####[facility] [id number] [place] [address] [place] MCV (RBC) [Entitic vol] 88.1 fL Normal 80.0-100.0 [facility] Comment on above: Order Comment: Speci men Type: BLOOD SPECIMENOrdering Facility: [facility] Address: [address] [place] [address] Performed By: #### 5 8410-2 ####[facility] [id number] [place] [address] [place] Nucleated RBC (Bld) [#/Vol] 10*3/uL Normal <0.01 [facility] Comment on above: Order Comment: Speci men Type: BLOOD SPECIMENOrdering Facility: [facility] Address: [address] [place] [address] Performed By: #### 5 8410-2 ####[facility] [id number] [place] [address] [place] Platelet mean volume (Bld) [Entitic vol] 8.8 fL Low 9.0-12.7 [facility] Comment on above: Order Comment: Speci men Type: BLOOD SPECIMENOrdering Facility: [facility] Address: [address] [place] [address] Performed By: #### 5 8410-2 ####[facility] [id number] [place] [address] [place] Platelets (Bld) [#/Vol] 415 10*3/uL High 150-400 [facility] Comment on above: Order Comment: Speci men Type: BLOOD SPECIMENOrdering Facility: [facility] Address: [address] [place] [address] Performed By: #### 5 8410-2 ####[facility] [id number] [place] [address] [place] RBC (Bld) [#/Vol] 1.60 10*6/uL Low 4.20-6.00 [facility] Comment on above: Order Comment: Speci men Type: BLOOD SPECIMENOrdering Facility: [facility] Address: [address] [place] [address] Performed By: #### 5 8410-2 ####[facility] [id number] [place] [address] [place] WBC (Bld) [#/Vol] 17.28 10*3/uL High 3.70-11.00 [facility] Comment on above: Order Comment: Speci men Type: BLOOD SPECIMENOrdering Facility: [facility] Address: [address] [place] [address] Performed By: #### 5 8410-2 ####[facility] [id number] [place] [address] [place] CONSULTon 02-05-2024 CONSULT Normal [facility] CONSULT PROGon 02-05-2024 CONSULT PROG Normal [facility] CONSULT PROG Normal [facility] CONSULT PROG Normal [facility] Comprehensive metabolic 2000 panelon 02-05-2024 Albumin [Mass/Vol] 1.6 g/dL Low 3.9-4.9 [facility] Comment on above: Order Comment: Speci men Type: BLOOD SPECIMENOrdering Facility: [facility] Address: [address] [place] [address] Performed By: #### 2 4323-8 ####[facility] [id number] [place] [address] [place] ALP [Catalytic activity/Vol] 984 U/L High 38-113 [facility] Comment on above: Order Comment: Speci men Type: BLOOD SPECIMENOrdering Facility: [facility] Address: [address] [place] [address] Performed By: #### 2 4323-8 ####[facility] [id number] [place] [address] [place] ALT [Catalytic activity/Vol] 20 U/L Normal 10-54 [facility] Comment on above: Order Comment: Speci men Type: BLOOD SPECIMENOrdering Facility: [facility] Address: [address] [place] [address] Performed By: #### 2 4323-8 ####[facility] [id number] [place] [address] [place] Anion gap [Moles/Vol] 8 mmol/L Low 9-18 [facility] Comment on above: Order Comment: Speci men Type: BLOOD SPECIMENOrdering Facility: [facility] Address: [address] [place] [address] Performed By: #### 2 4323-8 ####[facility] [id number] [place] [address] [place] AST [Catalytic activity/Vol] 39 U/L Normal 14-40 [facility] Comment on above: Order Comment: Speci men Type: BLOOD SPECIMENOrdering Facility: [facility] Address: [address] [place] [address] Performed By: #### 2 4323-8 ####[facility] [id number] [place] [address] [place] Bilirubin [Mass/Vol] 0.8 mg/dL Normal 0.2-1.3 [facility] Comment on above: Order Comment: Speci men Type: BLOOD SPECIMENOrdering Facility: [facility] Address: [address] [id number] Performed By: #### 2 4323-8 ####[facility] [id number] [facility] [address] [address] [place] Calcium [Mass/Vol] 8.4 mg/dL Low 8.5-10.2 [facility] Comment on above: Order Comment: Speci men Type: BLOOD SPECIMENOrdering Facility: [facility] Address: [address] [place] [address] Result Comment: Resu lt rechecked. Performed By: #### 2 4323-8 ####[facility] [id number] [place] [address] [place] Chloride [Moles/Vol] 100 mmol/L Normal 97-105 [facility] Comment on above: Order Comment: Speci men Type: BLOOD SPECIMENOrdering Facility: [facility] Address: [address] [place], [place] [address] Performed By: #### 2 4323-8 ####[facility] [id number] [place] [address] [place] CO2 [Moles/Vol] 20 mmol/L Low 22-30 [facility] Comment on above: Order Comment: Speci men Type: BLOOD SPECIMENOrdering Facility: [facility] Address: [address] [id number] Performed By: #### 2 4323-8 ####[facility] [id number] [place] [address] [place] Creatinine [Mass/Vol] 1.50 mg/dL High 0.73-1.22 [facility] Comment on above: Order Comment: Speci men Type: BLOOD SPECIMENOrdering Facility: [facility] Address: [address] [place] [address] Performed By: #### 2 4323-8 ####[facility] [id number] [place] [address] [place] Creatinine and Glomerular filtration rate.predicted panel (S/P/Bld) 64 mL/min/1.73m??? Normal >=60 [facility] Comment on above: Order Comment: Kanu sainz Type: BLOOD SPECIMENOrdering Facility: [facility] Address: [address] [place] [address] Result Comment: Janeth mated Glomerular Filtration Rate (eGFR) is calculated using the 2020 CKD-EPI creatinine equation. This equation utilizes serum creatinine, sex, and age as parameters. The creatinine assay has traceable calibration to isotope dilution-mass spectrometry. Refer to KDIGO guidelines for clinical interpretation. In patients with unstable renal function, e.g. those with acute kidney injury, the eGFR may not accurately reflect actual GFR. Performed By: #### 2 4323-8 ####[facility] [id number] [place] [address] [place] Glucose [Mass/Vol] 160 mg/dL High 74-99 [facility] Comment on above: Order Comment: Kanu sainz Type: BLOOD SPECIMENOrdering Facility: [facility] Address: [address] [place] [address] Result Comment: The [place] [employer] (ADA) provides guidance for cutoff values for fasting glucose and random glucose. The ADA defines fasting as no caloric intake for at least 8 hours. Fasting plasma glucose results between 100 to 125 mg/dL indicate increased risk for diabetes (prediabetes).Fasting plasma glucose results greater than or equal to 126 mg/dL meet the criteria for diagnosis of diabetes. In the absence of unequivocal hyperglycemia, results should be confirmed by repeat testing. In a patient with classic symptoms of hyperglycemia or hyperglycemic crisis, random plasma glucose results greater than or equal to 200 mg/dL meet the criteria for diagnosis of diabetes.Reference: Standards of Medical Care in Diabetes 2016, [place] [employer]. Diabetes Care. 2016.39(Suppl 1). Performed By: #### 2 4323-8 ####[facility] [id number] [place] [address] [place] Potassium [Moles/Vol] 4.8 mmol/L Normal 3.7-5.1 [facility] Comment on above: Order Comment: Speci men Type: BLOOD SPECIMENOrdering Facility: [facility] Address: [address] [place] [address] Performed By: #### 2 4323-8 ####[facility] [id number] [place] [address] [place] Protein [Mass/Vol] 5.7 g/dL Low 6.3-8.0 [facility] Comment on above: Order Comment: Speci men Type: BLOOD SPECIMENOrdering Facility: [facility] Address: [address] [place] [address] Performed By: #### 2 4323-8 ####[facility] [id number] [place] [address] [place] Sodium [Moles/Vol] 128 mmol/L Low 136-144 [facility] Comment on above: Order Comment: Speci men Type: BLOOD SPECIMENOrdering Facility: [facility] Address: [address] [place] [address] Performed By: #### 2 4323-8 ####[facility] [id number] [place] [address] [place] Urea nitrogen [Mass/Vol] 68 mg/dL High 9-24 [facility] Comment on above: Order Comment: Speci men Type: BLOOD SPECIMENOrdering Facility: [facility] Address: [address] [place], [place] [id number] Performed By: #### 2 4323-8 ####[facility] [id number] [place] [address] [place] Albumin [Mass/Vol] 1.2 g/dL Low 3.9-4.9 [facility] Comment on above: Order Comment: Speci men Type: BLOOD SPECIMENOrdering Facility: [facility] Address: [address] [id number] Performed By: #### 2 4323-8, ####[facility] [id number] [place] [id number] [place] ALP [Catalytic activity/Vol] 952 U/L High 38-113 [facility] Comment on above: Order Comment: Speci men Type: BLOOD SPECIMENOrdering Facility: [facility] Address: [address] [place], [place] [address] Performed By: #### 2 4322-8, ####[facility] [id number] [place] [address] [place] ALT [Catalytic activity/Vol] 19 U/L Normal 10-54 [facility] Comment on above: Order Comment: Speci men Type: BLOOD SPECIMENOrdering Facility: [facility] Address: [address] [place] [address] Performed By: #### 2 4322-8, ####[facility] [id number] [place] [address] [place] Anion gap [Moles/Vol] 6 mmol/L Low 9-18 [facility] Comment on above: Order Comment: Speci men Type: BLOOD SPECIMENOrdering Facility: [facility] Address: [address] [place], [place] [address] Performed By: #### 2 432-8, ####[facility] [id number] [place] [id number] [place] AST [Catalytic activity/Vol] 48 U/L High 14-40 [facility] Comment on above: Order Comment: Speci men Type: BLOOD SPECIMENOrdering Facility: [facility] Address: [address] [place], [place] [address] Performed By: #### 2 4323-8, ####[facility] [id number] [place] [id number] [place] Bilirubin [Mass/Vol] 0.5 mg/dL Normal 0.2-1.3 [facility] Comment on above: Order Comment: Speci men Type: BLOOD SPECIMENOrdering Facility: [facility] Address: [address] [place] [address] Performed By: #### 2 4323-8, ####[facility] [id number] [place] [address] [place] Calcium [Mass/Vol] 6.7 mg/dL Low 8.5-10.2 [facility] Comment on above: Order Comment: Speci men Type: BLOOD SPECIMENOrdering Facility: [facility] Address: [address] [place] [address] Performed By: #### 2 432-8, ####[facility] [id number] [place] [address] [place] Chloride [Moles/Vol] 97 mmol/L Normal 97-105 [facility] Comment on above: Order Comment: Speci men Type: BLOOD SPECIMENOrdering Facility: [facility] Address: [address] [place] [address] Performed By: #### 2 4323-8, ####[facility] [id number] [place] [address] [place] CO2 [Moles/Vol] 22 mmol/L Normal 22-30 [facility] Comment on above: Order Comment: Speci men Type: BLOOD SPECIMENOrdering Facility: [facility] Address: [address] [place], [place] [address] Performed By: #### 2 4323-8, ####[facility] [id number] [place] [id number] [place] Creatinine [Mass/Vol] 1.78 mg/dL High 0.73-1.22 [facility] Comment on above: Order Comment: Kanu sainz Type: BLOOD SPECIMENOrdering Facility: [facility] Address: [address] [place] [address] Performed By: #### 2 4323-8, ####[facility] [id number] [place] [address] [place] Creatinine and Glomerular filtration rate.predicted panel (S/P/Bld) 52 mL/min/1.73m??? Low >=60 [facility] Comment on above: Order Comment: Kanu sainz Type: BLOOD SPECIMENOrdering Facility: [facility] Address: [address] [place] [address] Result Comment: Janeth mated Glomerular Filtration Rate (eGFR) is calculated using the 2020 CKD-EPI creatinine equation. This equation utilizes serum creatinine, sex, and age as parameters. The creatinine assay has traceable calibration to isotope dilution-mass spectrometry. Refer to KDIGO guidelines for clinical interpretation. In patients with unstable renal function, e.g. those with acute kidney injury, the eGFR may not accurately reflect actual GFR. Performed By: #### 2 4323-8, ####[facility] [id number] [place] [address] [place] Glucose [Mass/Vol] 146 mg/dL High 74-99 [facility] Comment on above: Order Comment: Kanu sainz Type: BLOOD SPECIMENOrdering Facility: [facility] Address: [address] [place] [address] Result Comment: The [place] [employer] (ADA) provides guidance for cutoff values for fasting glucose and random glucose. The ADA defines fasting as no caloric intake for at least 8 hours. Fasting plasma glucose results between 100 to 125 mg/dL indicate increased risk for diabetes (prediabetes).Fasting plasma glucose results greater than or equal to 126 mg/dL meet the criteria for diagnosis of diabetes. In the absence of unequivocal hyperglycemia, results should be confirmed by repeat testing. In a patient with classic symptoms of hyperglycemia or hyperglycemic crisis, random plasma glucose results greater than or equal to 200 mg/dL meet the criteria for diagnosis of diabetes.Reference: Standards of Medical Care in Diabetes 2016, [place] [employer]. Diabetes Care. 2016.39(Suppl 1). Performed By: #### 2 432-8, ####[facility] [id number] [address] [address] [place] Potassium [Moles/Vol] 5.9 mmol/L High 3.7-5.1 [facility] Comment on above: Order Comment: Speci men Type: BLOOD SPECIMENOrdering Facility: [facility] Address: [address] [phone] Performed By: #### 2 8, ####[facility] [id number] [place] [address] [place] Protein [Mass/Vol] 5.3 g/dL Low 6.3-8.0 [facility] Comment on above: Order Comment: Speci men Type: BLOOD SPECIMENOrdering Facility: [facility] Address: [address] [phone] Performed By: #### 2 4323-07, ####[facility] [id number] [place] [address] [place] Sodium [Moles/Vol] 125 mmol/L Low 136-144 [facility] Comment on above: Order Comment: Speci men Type: BLOOD SPECIMENOrdering Facility: [facility] Address: [address] [place] [address] Performed By: #### 2 4322-8, ####[facility] [id number] [place] [id number] [place] Urea nitrogen [Mass/Vol] 76 mg/dL High 9-24 [facility] Comment on above: Order Comment: Speci men Type: BLOOD SPECIMENOrdering Facility: [facility] Address: [address] [place] [address] Performed By: #### 2 4323-8, 51212-0 ####[facility] [id number] [place] [address] [place] ECG COMPLETEon 02-05-2024 ECG COMPLETE Normal [facility] [id number] 02-05-2024 ECG01 Normal [facility] Ferritin SerPl-ncon 2023 Ferritin [Mass/Vol] 254.0 ng/mL Normal 30.3-565.7 [facility] Comment on above: Order Comment: Speci men Type: BLOOD SPECIMENOrdering Facility: [facility] Address: [address] [place] [address] Performed By: #### 2 132-9, 99631-9, 3034-6, 51266-0, 4542-7, 2276-4 ####[facility] [id number] [place] [address] [place] Fibrinogen PPP-ncon 2023 Fibrinogen Coag (PPP) [Mass/Vol] 266 mg/dL Normal 200-400 [facility] Comment on above: Order Comment: Speci men Type: BLOOD SPECIMENOrdering Facility: [facility] Address: [address] [place] [address] Performed By: #### 3 255-7 ####[facility] [id number] [place] [address] [place] Folate SerPl-mCncon 02-05-20 24 Folate [Mass/Vol] 6.7 ng/mL Normal >4.7 [facility] Comment on above: Order Comment: Speci men Type: BLOOD SPECIMENOrdering Facility: [facility] Address: [address] [place] [address] Performed By: #### 2 284-8, 2532-0, 14708-5 ####[facility] [id number] [place] [address] [place] Gas and Carbon monoxide pane l (BldV)on 02-05-2024 BASE DEFICIT, VENOUS -3 mmol/L Low -2-0 [facility] Comment on above: Order Comment: Speci men Type: VENOUS BLOOD SPECIMENOrdering Facility: [facility] Address: [address] [place] [address] Performed By: #### 2 4344-4 ####[facility] [id number] [place] [address] [place] Body temperature 97.7 [degF] Normal [facility] Comment on above: Order Comment: Speci men Type: VENOUS BLOOD SPECIMENOrdering Facility: [facility] Address: [address] [place] [address] Performed By: #### 2 4344-4 ####[facility] LABCLIA [id number] [place] [address] [place] Calcium.ionized (Bld) [Mass/Vol] 1.16 mmol/L Normal 1.08-1.30 [facility] Comment on above: Order Comment: Speci men Type: VENOUS BLOOD SPECIMENOrdering Facility: [facility] Address: [address] [place] [address] Performed By: #### 2 4344-4 ####[facility] LABIA [id number] [place] [address] [place] Calcium.ionized adjusted to pH 7.4 (BldA) [Moles/Vol] 1.13 mmol/L Normal 1.08-1.30 [facility] Comment on above: Order Comment: Speci men Type: VENOUS BLOOD SPECIMENOrdering Facility: [facility] Address: [address] [place] [address] Performed By: #### 2 4344-4 ####[facility]CL[facility] [id number] [place] [address] [place] Carboxyhemoglobin (BldV) [Mass fraction] 1.5 % Normal 0.0-2.0 [facility] Comment on above: Order Comment: Speci men Type: VENOUS BLOOD SPECIMENOrdering Facility: [facility] Address: [address] [place], [place] [address] Result Comment: Carb oxyhemoglobin Reference Range for Smokers: 2.0-8.0% Performed By: #### 2 4344-4 ####[facility]CL[facility] [id number] [address] [address] [place] CO2 (BldV) [Partial pressure] 39 mm[Hg] Low 42-55 [facility] Comment on above: Order Comment: Speci men Type: VENOUS BLOOD SPECIMENOrdering Facility: [facility] Address: [address] [place] [address] Performed By: #### 2 4344-4 ####[facility] [id number] [address] [place] CO2 adjusted to patient's actual temperature (BldV) [Partial pressure] 38 mmHg Low 42-55 [facility] Comment on above: Order Comment: Speci men Type: VENOUS BLOOD SPECIMENOrdering Facility: [facility] Address: [address] [place] [address] Performed By: #### 2 4344-4 ####[facility] [id number] [place] [address] [place] COMMENTS Critical Value: hgb Normal [facility] Comment on above: Order Comment: Speci men Type: VENOUS BLOOD SPECIMENOrdering Facility: [facility] Address: [address] [place] [address] Performed By: #### 2 4344-4 ####[facility]CL[facility] [id number] [place] [address] [place] DATE/TIME NOTIFIED 482175 21190 PM [facility] Comment on above: Order Comment: Speci men Type: VENOUS BLOOD SPECIMENOrdering Facility: [facility] Address: [address] [place], [place] [address] Performed By: #### 2 4344-4 ####[facility] [id number] [place] [address] [place] Glucose [Mass/Vol] 77 mg/dL Normal 60-105 [facility] Comment on above: Order Comment: Speci men Type: VENOUS BLOOD SPECIMENOrdering Facility: [facility] Address: [address] [place] [address] Performed By: #### 2 4344-4 ####[facility] [id number] [place] [address] [place] HCO3 (Bld) [Moles/Vol] 22 mmol/L Low 24-28 [facility] Comment on above: Order Comment: Speci men Type: VENOUS BLOOD SPECIMENOrdering Facility: [facility] Address: [address] [place] [address] Performed By: #### 2 4344-4 ####[facility] [id number] [place] [address] [place] Hematocrit (Bld) [Volume fraction] 15.7 % Low 39.0-51.0 [facility] Comment on above: Order Comment: Speci men Type: VENOUS BLOOD SPECIMENOrdering Facility: [facility] Address: [address] [place] [address] Performed By: #### 2 4344-4 ####[facility]CL[facility] [id number] [place] [address] [place] Hemoglobin (Bld) [Mass/Vol] 4.9 g/dL Critically low 13.0-17.0 [facility] Comment on above: Order Comment: Speci men Type: VENOUS BLOOD SPECIMENOrdering Facility: [facility] Address: [address] [place] [address] Performed By: #### 2 4344-4 ####[facility] [id number] [place] [address] [place] Lactate [Moles/Vol] 1.3 mmol/L Normal 0.5-2.2 [facility] Comment on above: Order Comment: Speci men Type: VENOUS BLOOD SPECIMENOrdering Facility: [facility] Address: [address] [place] [address] Performed By: #### 2 4344-4 ####[facility] [id number] [place] [address] [place] Methemoglobin (Bld) [Mass fraction] 1.7 % High 0.0-1.5 [facility] Comment on above: Order Comment: Speci men Type: VENOUS BLOOD SPECIMENOrdering Facility: [facility] Address: [address] [place] [address] Performed By: #### 2 4344-4 ####[facility] [id number] [place] [address] [place] NOTIFIED WHOM geronimo pollard rn g6Ayaan hampton Normal [facility] Comment on above: Order Comment: Speci men Type: VENOUS BLOOD SPECIMENOrdering Facility: [facility] Address: [address] [place] [address] Performed By: #### 2 4344-4 ####[facility] [id number] [place] [address] [place] O2 THERAPY RA=Room Air Normal [facility] Comment on above: Order Comment: Speci men Type: VENOUS BLOOD SPECIMENOrdering Facility: [facility] Address: [address] [place] [address] Performed By: #### 2 4344-4 ####[facility] [id number] [place] [address] [place] Oxygen (BldV) [Partial pressure] 41 mm[Hg] Normal 35-45 [facility] Comment on above: Order Comment: Speci men Type: VENOUS BLOOD SPECIMENOrdering Facility: [facility] Address: [address] [place] [address] Performed By: #### 2 4344-4 ####[facility] [id number] [address] [address] [place] Oxygen adjusted to patient's actual temperature (BldV) [Partial pressure] 40 mmHg Normal 35-45 [facility] Comment on above: Order Comment: Speci men Type: VENOUS BLOOD SPECIMENOrdering Facility: [facility] Address: [address] [place] [address] Performed By: #### 2 4344-4 ####[facility] [id number] [address] [address] [place] Oxygen saturation in Venous blood 71 % Normal 60-85 [facility] Comment on above: Order Comment: Speci men Type: VENOUS BLOOD SPECIMENOrdering Facility: [facility] Address: [address] [place] [address] Performed By: #### 2 4344-4 ####[facility] [id number] [place] [address] [place] Oxyhemoglobin (BldV) [Mass fraction] 68 % Normal 60-85 [facility] Comment on above: Order Comment: Speci men Type: VENOUS BLOOD SPECIMENOrdering Facility: [facility] Address: [address] [place], [place] [address] Performed By: #### 2 4344-4 ####[facility] [id number] [place] [id number] [place] pH (BldV) 7.36 [pH] Normal 7.32-7.42 [facility] Comment on above: Order Comment: Speci men Type: VENOUS BLOOD SPECIMENOrdering Facility: [facility] Address: [address] [place], [place] [address] Performed By: #### 2 4344-4 ####[facility] [id number] [address] [address] [place] pH adjusted to patient's actual temperature (BldV) 7.36 Normal 7.32-7.42 [facility] Comment on above: Order Comment: Speci men Type: VENOUS BLOOD SPECIMENOrdering Facility: [facility] Address: [address] [place] [address] Performed By: #### 2 4344-4 ####[facility] [id number] [place] [address] [place] Potassium [Moles/Vol] 4.6 mmol/L Normal 3.5-5.0 [facility] Comment on above: Order Comment: Speci men Type: VENOUS BLOOD SPECIMENOrdering Facility: [facility] Address: [address] [place] [address] Performed By: #### 2 4344-4 ####[facility] [id number] [place] [address] [place] Sodium [Moles/Vol] 127 mmol/L Low 136-144 [facility] Comment on above: Order Comment: Speci men Type: VENOUS BLOOD SPECIMENOrdering Facility: [facility] Address: [address] [place] [address] Performed By: #### 2 4344-4 ####[facility] [id number] [place] [address] [place] H. pylori IgG IA Qlon 2023 H. PYLORI IGG, QUAL Negative Normal Negative [facility] Comment on above: Order Comment: Speci men Type: BLOOD SPECIMENOrdering Facility: [facility] Address: [address] [place] [address] Result Comment: Harjit ot exclude H. pylori infection if the specimen collected 3-4 weeks after onset of symptoms. Performed By: #### 2 284-8, 2532-0, 21620-5 ####[facility] [id number] [place] [address] [place] HISTORY PHYSICALon HISTORY PHYSICAL Normal [facility] Haptoglob SerPl-mCncon 02-04 Haptoglobin [Mass/Vol] 109 mg/dL Normal 31-238 [facility] Comment on above: Order Comment: Speci men Type: BLOOD SPECIMENOrdering Facility: [facility] Address: [address] [place] [address] Performed By: #### 2 132-9, 15247-3, 3034-6, 70224-5, 4542-7, 2276-4 ####[facility]CL[facility] [id number] [place] [address] [place] Iron and Iron binding capaci ty panelon 02-05-2024 Iron [Mass/Vol] 10 ug/dL Low 41-186 [facility] Comment on above: Order Comment: Speci men Type: BLOOD SPECIMENOrdering Facility: [facility] Address: [address] [place] [address] Performed By: #### 2 132-9, 35353-5, 3034-6, 17239-6, 4542-7, 2276-4 ####[facility] [id number] [place] [address] [place] Iron binding capacity [Mass/Vol] 102 ug/dL Low 232-386 [facility] Comment on above: Order Comment: Speci men Type: BLOOD SPECIMENOrdering Facility: [facility] Address: [address] [place] [address] Performed By: #### 2 132-9, 78268-2, 3034-6, 72766-0, 4542-7, 2276-4 ####[facility]CL[facility] [id number] [place] [id number] [place] Iron/TIBC [Molar ratio] 9.8 % Low 15.0-57.0 [facility] Comment on above: Order Comment: Speci men Type: BLOOD SPECIMENOrdering Facility: [facility] Address: [address] [place] [address] Performed By: #### 2 132-9, 31237-9, 3034-6, 73604-6, 4542-7, 2276-4 ####[facility] [id number] [place] [address] [place] LDH SerPl-cCncon 02-05-2024 LDH [Catalytic activity/Vol] 144 U/L Normal 135-225 [facility] Comment on above: Order Comment: Speci men Type: BLOOD SPECIMENOrdering Facility: [facility] Address: [address] [place] [address] Performed By: #### 2 284-8, 2532-0, 18202-5 ####[facility]CL[facility] [id number] [place] [address] [place] Magnesium SerPl-mCncon 02-04 Magnesium [Mass/Vol] 1.5 mg/dL Low 1.7-2.3 [facility] Comment on above: Order Comment: Speci men Type: BLOOD SPECIMENOrdering Facility: [facility] Address: [address] [place] [address] Performed By: #### 2 4323-8, 54287-2 ####[facility] LABIA [id number] [place] [address] [place] NURSING PROGon 02-05-2024 NURSING PROG Normal [facility] NURSING PROG Normal [facility] NURSING PROG Normal [facility] NURSING PROG Normal [facility] NUTRITIONon 02-05-2024 NUTRITION Normal [facility] Retics #on 02-05-2024 Reticulocytes (Bld) [#/Vol] 0.11861 10*3/uL Normal 0.018-0.10 0 [facility] Comment on above: Order Comment: Speci men Type: BLOOD SPECIMENOrdering Facility: [facility] Address: [address] [place] [address] Performed By: #### 5 7021-8, 54760-6 ####[facility]CL[facility] [id number] [place] [address] [place] Reticulocytes (Bld) [#/Vol]o n 02-05-2024 Reticulocytes/100 RBC (Bld) 2.0 % Normal 0.4-2.0 [facility] Comment on above: Order Comment: Speci men Type: BLOOD SPECIMENOrdering Facility: [facility] Address: [address] [place] [address] Performed By: #### 5 7021-8, 55500-3 ####[facility] [id number] [place] [address] [place] THERAPY NTon 02-05-2024 THERAPY NT Normal [facility] THROMBOGRAPH PANELon 024 Clot angle TEG (Bld) [Angle] 79.3 degrees High 47.0-74.0 [facility] Comment on above: Order Comment: Speci men Type: BLOOD SPECIMENOrdering Facility: [facility] Address: [address] [place] [address] Performed By: #### T EGPNP ####[facility] LABIA [id number] [address] [place] Clot Lysis 30 Min post maximum clot amplitude TEG (Bld) [Length fraction] 0.0 % Normal 0.0-8.0 [facility] Comment on above: Order Comment: Speci men Type: BLOOD SPECIMENOrdering Facility: [facility] Address: [address] [place] [address] Performed By: #### T EGPNP ####[facility]IA [id number] [address] [place] Clotting time TEG (Bld) 6.4 minutes Normal 4.0-10.0 [facility] Comment on above: Order Comment: Speci men Type: BLOOD SPECIMENOrdering Facility: [facility] Address: [address] [place] [address] Performed By: #### T EGPNP ####[facility] [id number] [place] [address] [place] Coagulation index TEG Qn (Bld) 3.4 High -4.6-3.2 [facility] Comment on above: Order Comment: Kanu sainz Type: BLOOD SPECIMENOrdering Facility: [facility] Address: [address] [place] [address] Result Comment: The Coagulation Index, a secondary parameter, is labeled by the forder operator as for research use only and is used per the forder operator's instructions. Its performance characteristics were determined by [facility]'s Louie Maude [facility] [place] in a manner consistent with CLIA requirements. This test has not been cleared by the U.S. Food and Drug Administration. Performed By: #### T EGPNP ####[facility] [id number] [address] [place] Maximum clot firmness TEG (Bld) [Length] 78.8 mm High 51.0-75.0 [facility] Comment on above: Order Comment: Kanu sainz Type: BLOOD SPECIMENOrdering Facility: [facility] Address: [address] [place] [address] Performed By: #### T EGPNP ####[facility] [id number] [address] [place] Thromboelastography after addtion of heparinase panel (Bld) Normal [facility] Comment on above: Order Comment: Kanu sainz Type: BLOOD SPECIMENOrdering Facility: [facility] Address: [address] [place] [address] Result Comment: A th romboelastograph (TEG) study was performed using citrate-anticoagulated whole blood.The R value, a measure of coagulation function, is within the normal range. This indicates normal coagulation function. The angle, a measure of fibrinogen function, is increased. This is indicative of increased fibrinogen concentration or function. The Maximal Amplitude (MA), a measure of platelet function, clot stability, and fibrinogen, is increased. An increased MA can be seen with elevated platelet count, increased fibrinogen and suboptimal anti-platelet effect. The Ly30, a measure of fibrinolysis, is normal. This is indicative of normal fibrinolytic function. The coagulation index (CI), a measure of hemostasis function, is increased. The CI is a calculated parameter based on the other TEG results. This is indicative of increased hemostasis function. Performed By: #### T EGPNP ####[facility] [id number] [place] [address] [place] TYPE + SCREENon 02-05-2024 ABO O Normal [facility] Comment on above: Order Comment: Speci men Type: BLOOD SPECIMENOrdering Facility: [facility] Address: [address] [place] [address] Performed By: #### T SCR ####[facility] BLOOD BANKCLIA [id number] [address] HISTORICAL AB SCR STATUS Negative Normal [facility] Comment on above: Order Comment: Speci men Type: BLOOD SPECIMENOrdering Facility: [facility] Address: [address] [place] [address] Performed By: #### T SCR ####[facility] BLOOD BANKCLIA [id number] [place] [address] [place] Rh Nom (Bld) Positive Normal [facility] Comment on above: Order Comment: Speci men Type: BLOOD SPECIMENOrdering Facility: [facility] Address: [address] [place] [address] Performed By: #### T SCR ####[facility] BLOOD BANKCLIA [id number] [place] [address] [place] TYPE AND SCREEN EXPIRATION 02/08/2024 23:59 Normal [facility] Comment on above: Order Comment: Speci men Type: BLOOD SPECIMENOrdering Facility: [facility] Address: [address] [place] [address] Performed By: #### T SCR ####[facility] BLOOD BANKCLIA [id number] [place] [address] [place] Transferrin SerPl-mCncon Transferrin [Mass/Vol] 74 mg/dL Low 200-360 [facility] Comment on above: Order Comment: Speci men Type: BLOOD SPECIMENOrdering Facility: [facility] Address: [address] [place] [address] Performed By: #### 2 132-9, 36677-5, 3034-6, 11457-3, 4542-7, 6-4 ####[facility] [id number] [place] [address] [place] Upper GI endoscopyon 024 Upper GI endoscopy Normal [facility] Vancomycin Crescent SerPl-mCncon 02-05-2024 Vancomycin random [Mass/Vol] 24.8 ug/mL High 10.0-20.0 [facility] Comment on above: Order Comment: Speci men Type: BLOOD SPECIMENOrdering Facility: [facility] Address: [facility] [place] [address] Result Comment: Refe rence ranges and high/low indicator flags are provided as general guidelines only. The treating physician must determine appropriate target levels/dosing based on the specific clinical situation. Performed By: #### 4 091-5 ####[facility] [id number] [place] [address] [place] Vit B12 SerPl-mCncon 024 Cobalamin (Vitamin B12) [Mass/Vol] 1776 pg/mL High 232-1245 [facility] Comment on above: Order Comment: Speci men Type: BLOOD SPECIMENOrdering Facility: [facility] Address: [facility] [place] [address] Performed By: #### 2 132-9, 93553-0, 3034-6, 96392-0, 4542-7, 2275-4 ####[facility] [id number] [place] [address] [place] XR CHEST 1V FRONTAL PORTon 0 02-05-2024 XR CHEST 1V FRONTAL PORT Normal [facility] XR CHEST 1V FRONTAL PORT Normal [facility] ALLIED HEALTHon 02-04-2024 ALLIED HEALTH Normal [facility] Bacteria Bld Culton 02-04-20 24 Bacteria identified Cx Nom (Bld) CULTURE, BLOOD: No growth 5 days Normal [facility] Comment on above: Performed By: #### 6 00-7 ####[facility] [id number] [place] [address] [place] Bacteria identified Cx Nom (Bld) CULTURE, BLOOD: No growth 5 days Normal [facility] Comment on above: Performed By: #### 6 00-7 ####[facility] [id number] [place] [address] [place] Bacteria Ur Culton 4 Bacteria identified Cx Nom (U) CULTURE, URINE: No growth (<1,000 CFU/ml) Normal [facility] Comment on above: Performed By: #### 6 30-4 ####[facility] [id number] [place] [address] [place] [facility] Bilirubin [Mass/Vol] 0.5 mg/dL Normal 0.2-1.3 [facility] Comment on above: Order Comment: Speci men Type: BLOOD SPECIMENOrdering Facility: [facility] Address: [address] [place] [address] Performed By: #### K 1, 1974-2, 4542-7 ####[facility] [id number] [place] [address] [place] CASE MGT INIT ASSESon 2023 CASE MGT INIT ASSES Normal [facility] CONSULTon 02-04-2024 CONSULT Normal [facility] CONSULT Normal [facility] Haptoglob SerPl-mCncon 02-03 Haptoglobin [Mass/Vol] 123 mg/dL Normal 31-238 [facility] Comment on above: Order Comment: Speci men Type: BLOOD SPECIMENOrdering Facility: [facility] Address: [address] [place] [address] Performed By: #### K 1, 1977-01, 4542-05 ####[facility] [id number] [address] [address] [place] NURSING PROGon 02-04-2024 NURSING PROG Normal [facility] POTASSIUM BLDon 02-04-2024 Potassium [Moles/Vol] 5.1 mmol/L Normal 3.7-5.1 [facility] Comment on above: Order Comment: Speci men Type: BLOOD SPECIMENOrdering Facility: [facility] Address: [address] [place] [address] Performed By: #### K 1 ####[facility] [id number] [place] [address] [place] Potassium [Moles/Vol] 5.7 mmol/L High 3.7-5.1 [facility] Comment on above: Order Comment: Speci men Type: BLOOD SPECIMENOrdering Facility: [facility] Address: [address] [place] [address] Performed By: #### K 1, 1977-01, 4542-05 ####[facility] [id number] [place] [address] [place] Potassium [Moles/Vol] 5.6 mmol/L High 3.7-5.1 [facility] Comment on above: Order Comment: Speci men Type: BLOOD SPECIMENOrdering Facility: [facility] Address: [address] [place] [address] Performed By: #### K 1 ####[facility] [id number] [place] [id number] [place] Resp path 12b Pnl Spec PABLO+p robeon 02-04-2024 Respiratory pathogens DNA and RNA 12b panel PABLO+probe (Unsp spec) Normal [facility] Comment on above: Performed By: #### 6 0566-7 ####[facility] [id number] [place] [address] [place] 25(OH)D3 SerPl-mCncon 2023 25-hydroxyvitamin D3 [Mass/Vol] 17.7 ng/mL Low 31.0-80.0 [facility] Comment on above: Order Comment: Speci men Type: BLOOD SPECIMENOrdering Facility: [facility] Address: [address] [place] [address] Result Comment: Clas sification of 25 [place] Vitamin D status:Deficiency/Insufficiency: < or = 30 ng/ml.Sufficiency/Optimal Levels: 31-80 ng/mLToxicity: > 100 ng/mL.Test performed by chemiluminescent immunoassay. Performed By: #### 1 989-3, 2532-0 ####[facility] [id number] [place] [address] [place] AFB CULTURE/STAIN CYSTIC FIB ROSISon 02-03-2024 AFB CULTURE/STAIN CYSTIC FIBROSIS Abnormal [facility] Comment on above: Performed By: #### 6 23-9, 580-1, AFBCF ####[facility] [id number] [place] [address] [place] Bacteria Spt CF Resp Culton 02-03-2024 Bacteria identified Cystic fibrosis respiratory culture Nom (Sput) Abnormal [facility] Comment on above: Performed By: #### 6 23-9, 580-1, AFBCF ####[facility] [id number] [place] [id number] [place] CBC W Auto Differential pane l (Bld)on 02-03-2024 Basophils (Bld) [#/Vol] 0.00 10*3/uL Normal <0.11 [facility] Comment on above: Order Comment: Speci men Type: BLOOD SPECIMENOrdering Facility: [facility] Address: [address] [place] [address] Performed By: #### 4 537-7, 50077-4 ####[facility] [id number] [place] [address] [place] Basophils/100 WBC (Bld) 0.0 % Normal [facility] Comment on above: Order Comment: Speci men Type: BLOOD SPECIMENOrdering Facility: [facility] Address: [address] [place] [address] Performed By: #### 4 537-7, 81683-8 ####[facility] [id number] [place] [address] [place] Differential cell count method Nom (Bld) Manual Normal [facility] Comment on above: Order Comment: Speci men Type: BLOOD SPECIMENOrdering Facility: [facility] Address: [address] [place] [address] Performed By: #### 4 537-7, 58722-8 ####[facility] [id number] [place] [address] [place] Eosinophils (Bld) [#/Vol] 0.25 10*3/uL Normal <0.46 [facility] Comment on above: Order Comment: Speci men Type: BLOOD SPECIMENOrdering Facility: [facility] Address: [address] [place] [address] Performed By: #### 4 537-7, 05489-5 ####[facility] [id number] [place] [address] [place] Eosinophils/100 WBC (Bld) 1.0 % Normal [facility] Comment on above: Order Comment: Speci men Type: BLOOD SPECIMENOrdering Facility: [facility] Address: [address] [place] [address] Performed By: #### 4 537-7, 79087-6 ####[facility] [id number] [place] [address] [place] Erythrocyte distribution width (RBC) [Ratio] 14.9 % Normal 11.5-15.0 [facility] Comment on above: Order Comment: Speci men Type: BLOOD SPECIMENOrdering Facility: [facility] Address: [address] [place] [address] Performed By: #### 4 537-7, 42215-4 ####[facility] [id number] [place] [address] [place] Hematocrit (Bld) [Volume fraction] 29.6 % Low 39.0-51.0 [facility] Comment on above: Order Comment: Speci men Type: BLOOD SPECIMENOrdering Facility: [facility] Address: [address] [place] [address] Performed By: #### 4 537-7, 96756-6 ####[facility] [id number] [place] [address] [place] Hemoglobin (Bld) [Mass/Vol] 10.1 g/dL Low 13.0-17.0 [facility] Comment on above: Order Comment: Speci men Type: BLOOD SPECIMENOrdering Facility: [facility] Address: [address] [place] [address] Performed By: #### 4 537-7, 28549-7 ####[facility] [id number] [place] [address] [place] Lymphocytes (Bld) [#/Vol] 1.50 10*3/uL Normal 1.00-4.00 [facility] Comment on above: Order Comment: Speci men Type: BLOOD SPECIMENOrdering Facility: [facility] Address: [address] [place] [address] Performed By: #### 4 537-7, 33538-9 ####[facility] [id number] [place] [address] [place] Lymphocytes/100 WBC (Bld) 6.0 % Normal [facility] Comment on above: Order Comment: Speci men Type: BLOOD SPECIMENOrdering Facility: [facility] Address: [address] [place] [address] Performed By: #### 4 537-7, 52499-4 ####[facility] [id number] [place] [address] [place] MCH (RBC) [Entitic mass] 30.4 pg Normal 26.0-34.0 [facility] Comment on above: Order Comment: Speci men Type: BLOOD SPECIMENOrdering Facility: [facility] Address: [address] [place] [address] Performed By: #### 4 537-7, 16832-3 ####[facility] [id number] [place] [address] [place] MCHC (RBC) [Mass/Vol] 34.1 g/dL Normal 30.5-36.0 [facility] Comment on above: Order Comment: Speci men Type: BLOOD SPECIMENOrdering Facility: [facility] Address: [address] [place] [address] Performed By: #### 4 537-7, 74963-3 ####[facility] [id number] [place] [address] [place] MCV (RBC) [Entitic vol] 89.2 fL Normal 80.0-100.0 [facility] Comment on above: Order Comment: Speci men Type: BLOOD SPECIMENOrdering Facility: [facility] Address: [address] [place] [address] Performed By: #### 4 537-7, 17784-7 ####[facility] [id number] [place] [address] [place] Monocytes (Bld) [#/Vol] 1.25 10*3/uL High <0.87 [facility] Comment on above: Order Comment: Speci men Type: BLOOD SPECIMENOrdering Facility: [facility] Address: [address] [place] [address] Performed By: #### 4 537-7, 24431-2 ####[facility] [id number] [place] [address] [place] Monocytes/100 WBC (Bld) 5.0 % Normal [facility] Comment on above: Order Comment: Speci men Type: BLOOD SPECIMENOrdering Facility: [facility] Address: [address] [place] [address] Performed By: #### 4 537-7, 34042-2 ####[facility] [id number] [place] [address] [place] Neutrophils (Bld) [#/Vol] 22.00 10*3/uL High 1.45-7.50 [facility] Comment on above: Order Comment: Speci men Type: BLOOD SPECIMENOrdering Facility: [facility] Address: [address] [place] [address] Performed By: #### 4 537-7, 03629-5 ####[facility] [id number] [place] [address] [place] Neutrophils/100 WBC (Bld) 88.0 % Normal [facility] Comment on above: Order Comment: Speci men Type: BLOOD SPECIMENOrdering Facility: [facility] Address: [address] [place] [address] Performed By: #### 4 537-7, 70960-6 ####[facility] [id number] [place] [address] [place] Nucleated RBC (Bld) [#/Vol] 10*3/uL Normal <0.01 [facility] Comment on above: Order Comment: Speci men Type: BLOOD SPECIMENOrdering Facility: [facility] Address: [address] [place] [address] Performed By: #### 4 537-7, 63091-3 ####[facility] [id number] [place] [address] [place] Nucleated RBC/100 WBC (Bld) [Ratio] 0.0 /100 WBC Normal [facility] Comment on above: Order Comment: Speci men Type: BLOOD SPECIMENOrdering Facility: [facility] Address: [address] [place] [address] Performed By: #### 4 537-7, 81054-5 ####[facility] [id number] [place] [address] [place] Platelet clump LM Ql (Bld) Present Normal [facility] Comment on above: Order Comment: Speci men Type: BLOOD SPECIMENOrdering Facility: [facility] Address: [address] [place] [address] Performed By: #### 4 537-7, 10253-7 ####[facility] [id number] [place] [address] [place] Platelet mean volume (Bld) [Entitic vol] 9.7 fL Normal 9.0-12.7 [facility] Comment on above: Order Comment: Speci men Type: BLOOD SPECIMENOrdering Facility: [facility] Address: [address] [place] [address] Performed By: #### 4 537-7, 94391-8 ####[facility] [id number] [place] [address] [place] Platelets (Bld) [#/Vol] 348 10*3/uL Normal 150-400 [facility] Comment on above: Order Comment: Speci men Type: BLOOD SPECIMENOrdering Facility: [facility] Address: [address] [place] [address] Performed By: #### 4 537-7, 39813-3 ####[facility] [id number] [place] [address] [place] Platelets Estimate (Bld) [#/Vol] Adequate Normal [facility] Comment on above: Order Comment: Speci men Type: BLOOD SPECIMENOrdering Facility: [facility] Address: [address] [place] [address] Performed By: #### 4 537-7, 99998-2 ####[facility] [id number] [place] [address] [place] Polychromasia LM Ql (Bld) Slight Normal [facility] Comment on above: Order Comment: Speci men Type: BLOOD SPECIMENOrdering Facility: [facility] Address: [address] [place] [address] Performed By: #### 4 537-7, 82476-6 ####[facility] [id number] [place] [address] [place] RBC (Bld) [#/Vol] 3.32 10*6/uL Low 4.20-6.00 [facility] Comment on above: Order Comment: Speci men Type: BLOOD SPECIMENOrdering Facility: [facility] Address: [address] [place] [address] Performed By: #### 4 537-7, 15845-1 ####[facility] [id number] [place] [address] [place] RED CELL MORPH Reviewed: see result s of individual morphologies Normal [facility] Comment on above: Order Comment: Speci men Type: BLOOD SPECIMENOrdering Facility: [facility] Address: [address] [place] [address] Performed By: #### 4 537-7, 28232-1 ####[facility] [id number] [place] [address] [place] WBC (Bld) [#/Vol] 25.00 10*3/uL High 3.70-11.00 [facility] Comment on above: Order Comment: Speci men Type: BLOOD SPECIMENOrdering Facility: [facility] Address: [address] [place], [place] [id number] Performed By: #### 4 537-7, 21398-2 ####[facility] [id number] [place] [address] [place] CNPNon 02-03-2024 CNPN Normal [facility] CONSULT PROGon 02-03-2024 CONSULT PROG Normal [facility] CRP SerPl-mCncon 02-03-2024 CRP [Mass/Vol] 23.1 mg/dL High <0.9 [facility] Comment on above: Order Comment: Speci men Type: BLOOD SPECIMENOrdering Facility: [facility] Address: [address] [place] [address] Performed By: #### 2 432-8, , 1988-03 ####[facility] [id number] [place] [address] [place] Comprehensive metabolic 2000 panelon 02-03-2024 Albumin [Mass/Vol] 1.7 g/dL Low 3.9-4.9 [facility] Comment on above: Order Comment: Speci men Type: BLOOD SPECIMENOrdering Facility: [facility] Address: [address] [place] [address] Performed By: #### 2 4323-8, , 1988-03 ####[facility] [id number] [place] [id number] [place] ALP [Catalytic activity/Vol] 839 U/L High 38-113 [facility] Comment on above: Order Comment: Speci men Type: BLOOD SPECIMENOrdering Facility: [facility] Address: [address] [place] [address] Performed By: #### 2 4323-8, , 1988-03 ####[facility] [id number] [place] [id number] [place] ALT [Catalytic activity/Vol] 25 U/L Normal 10-54 [facility] Comment on above: Order Comment: Speci men Type: BLOOD SPECIMENOrdering Facility: [facility] Address: [address] [place] [address] Performed By: #### 2 4328, , 1988-03 ####[facility] [id number] [address] [address] [place] Anion gap [Moles/Vol] 8 mmol/L Low 9-18 [facility] Comment on above: Order Comment: Speci men Type: BLOOD SPECIMENOrdering Facility: [facility] Address: [address] [place] [address] Performed By: #### 2 4328, , 1988-03 ####[facility] [id number] [place] [address] [place] AST [Catalytic activity/Vol] 40 U/L Normal 14-40 [facility] Comment on above: Order Comment: Speci men Type: BLOOD SPECIMENOrdering Facility: [facility] Address: [address] [place] [address] Performed By: #### 2 8, , 1988-03 ####[facility] [id number] [address] [address] [place] Bilirubin [Mass/Vol] 0.9 mg/dL Normal 0.2-1.3 [facility] Comment on above: Order Comment: Speci men Type: BLOOD SPECIMENOrdering Facility: [facility] Address: [address] [place] [address] Performed By: #### 2 432-8, , 1988-03 ####[facility] [id number] [address] [address] [place] Calcium [Mass/Vol] 8.2 mg/dL Low 8.5-10.2 [facility] Comment on above: Order Comment: Speci men Type: BLOOD SPECIMENOrdering Facility: [facility] Address: [address] [place] [address] Performed By: #### 2 432-8, , 1988-03 ####[facility] [id number] [address] [address] [place] Chloride [Moles/Vol] 97 mmol/L Normal 97-105 [facility] Comment on above: Order Comment: Speci men Type: BLOOD SPECIMENOrdering Facility: [facility] Address: [address] [place] [address] Performed By: #### 2 432-8, , 1988-03 ####[facility] [id number] [place] [address] [place] CO2 [Moles/Vol] 21 mmol/L Low 22-30 [facility] Comment on above: Order Comment: Speci men Type: BLOOD SPECIMENOrdering Facility: [facility] Address: [address] [place] [address] Performed By: #### 2 432-8, , 1988-03 ####[facility] [id number] [place] [address] [place] Creatinine [Mass/Vol] 1.34 mg/dL High 0.73-1.22 [facility] Comment on above: Order Comment: Speci men Type: BLOOD SPECIMENOrdering Facility: [facility] Address: [address] [place] [address] Performed By: #### 2 4323-8, , 1988-03 ####[facility] [id number] [place] [id number] [place] Creatinine and Glomerular filtration rate.predicted panel (S/P/Bld) 73 mL/min/1.73m??? Normal >=60 [facility] Comment on above: Order Comment: Speci men Type: BLOOD SPECIMENOrdering Facility: [facility] Address: [address] [place] [id number] Result Comment: Janeth mated Glomerular Filtration Rate (eGFR) is calculated using the 2020 CKD-EPI creatinine equation. This equation utilizes serum creatinine, sex, and age as parameters. The creatinine assay has traceable calibration to isotope dilution-mass spectrometry. Refer to KDIGO guidelines for clinical interpretation. In patients with unstable renal function, e.g. those with acute kidney injury, the eGFR may not accurately reflect actual GFR. Performed By: #### 2 4322-8, , 1988-03 ####[facility] [id number] [place] [id number] [place] Glucose [Mass/Vol] 174 mg/dL High 74-99 [facility] Comment on above: Order Comment: Speci men Type: BLOOD SPECIMENOrdering Facility: [facility] Address: [address] [place] [address] Result Comment: The [place] Diabetes [employer] (ADA) provides guidance for cutoff values for fasting glucose and random glucose. The ADA defines fasting as no caloric intake for at least 8 hours. Fasting plasma glucose results between 100 to 125 mg/dL indicate increased risk for diabetes (prediabetes).Fasting plasma glucose results greater than or equal to 126 mg/dL meet the criteria for diagnosis of diabetes. In the absence of unequivocal hyperglycemia, results should be confirmed by repeat testing. In a patient with classic symptoms of hyperglycemia or hyperglycemic crisis, random plasma glucose results greater than or equal to 200 mg/dL meet the criteria for diagnosis of diabetes.Reference: Standards of Medical Care in Diabetes 2016, [place] [employer]. Diabetes Care. 2016.39(Suppl 1). Performed By: #### 2 4322-8, , 1988-03 ####[facility] [id number] [place] [id number] [place] Potassium [Moles/Vol] 5.6 mmol/L High 3.7-5.1 [facility] Comment on above: Order Comment: Speci men Type: BLOOD SPECIMENOrdering Facility: [facility] Address: [address] [place] [id number] Performed By: #### 2 4323-07, , 1988-03 ####[facility] [id number] [address] [address] [place] Protein [Mass/Vol] 7.0 g/dL Normal 6.3-8.0 [facility] Comment on above: Order Comment: Speci men Type: BLOOD SPECIMENOrdering Facility: [facility] Address: [address] [place] [address] Performed By: #### 2 4328, , 1988-03 ####[facility] [id number] [place] [id number] [place] Sodium [Moles/Vol] 126 mmol/L Low 136-144 [facility] Comment on above: Order Comment: Speci men Type: BLOOD SPECIMENOrdering Facility: [facility] Address: [address] [place] [address] Performed By: #### 2 4328, , 1988-03 ####[facility] [id number] [place] [id number] [place] Urea nitrogen [Mass/Vol] 53 mg/dL High 9-24 [facility] Comment on above: Order Comment: Speci men Type: BLOOD SPECIMENOrdering Facility: [facility] Address: [address] [place], [place] [id number] Performed By: #### 2 4323-8, , 1988-03 ####[facility] [id number] [address] [address] [place] TLY02fo 02-03-2024 ECG01 Normal [facility] ESR Westergren method (Bld) [Velocity]on 02-03-2024 ESR (Bld) [Velocity] 73 mm/h High 0-15 [facility] Comment on above: Order Comment: Speci men Type: BLOOD SPECIMENOrdering Facility: [facility] Address: [address] [place] [address] Performed By: #### 4 537-7, 48446-9 ####[facility] [id number] [address] Fungus Spec Culton 4 Fungus identified Cx Nom (Unsp spec) ORGANISM ID: 1 One colony Js albicans Normal [facility] Comment on above: Performed By: #### 6 23-9, 580-1, AFBCF ####[facility] [id number] [address] [place] HISTORY PHYSICALon 4 HISTORY PHYSICAL Normal [facility] HbA1c (Bld)on 02-03-2024 Average glucose Estimated from glycated hemoglobin (Bld) [Mass/Vol] 134 mg/dL Normal [facility] Comment on above: Order Comment: Speci men Type: BLOOD SPECIMENOrdering Facility: [facility] Address: [address] [place] [address] Result Comment: eAG: (Estimated average glucose) is a calculated value from HgbA1c and is motor vehicle field representative of the average blood glucose level in the last 2-3 month period. Performed By: #### 5 5454-3 ####[facility] [id number] [address] STATES [facility] HbA1c (Bld) [Mass fraction] 6.3 % High 4.3-5.6 [facility] Comment on above: Order Comment: Speci men Type: BLOOD SPECIMENOrdering Facility: [facility] Address: [address] [place] [address] Result Comment: [place] Diabetes Association guidelines indicate that patients with HgbA1c in the range 5.7-6.4% are at increased risk for development of diabetes, and intervention by lifestyle modification may be beneficial. HgbA1c greater or equal to 6.5% is considered diagnostic of diabetes. Performed By: #### 5 5454-3 ####[facility] [id number] [place] [address] [place] IgE SerPl-aCncon 02-03-2024 IgE Qn 20.9 kU/l Normal <114.0 [facility] Comment on above: Order Comment: Speci men Type: BLOOD SPECIMENOrdering Facility: [facility] Address: [address] [place] [address] Performed By: #### 1 9113-0 ####[facility] [id number] [place] [address] [place] LDH SerPl-cCncon 02-03-2024 LDH [Catalytic activity/Vol] 294 U/L High 135-225 [facility] Comment on above: Order Comment: Speci men Type: BLOOD SPECIMENOrdering Facility: [facility] Address: [address] [place] [address] Performed By: #### 1 989-3, 2532-0 ####[facility] [id number] [place] [address] [place] Magnesium SerPl-mCncon 02-02 Magnesium [Mass/Vol] 1.9 mg/dL Normal 1.7-2.3 [facility] Comment on above: Order Comment: Speci men Type: BLOOD SPECIMENOrdering Facility: [facility] Address: [address] [place] [address] Performed By: #### 2 4323-8, 65375-2, 1988-03 ####[facility] [id number] [place] [address] [place] NURSING PROGon 02-03-2024 NURSING PROG Normal [facility] PT EDon 02-03-2024 PT ED Normal [facility] XR ABDOMEN 1V SUPINEon 12-09 XR ABDOMEN 1V SUPINE Normal [facility] CNPNon 12-08-2023 CNPN Normal [facility] CNPNon 12-05-2023 CNPN Normal [facility] XR ABDOMEN 1V SUPINEon 12-05 XR ABDOMEN 1V SUPINE Normal [facility] CNOVon 11-20-2023 CNOV Office Visit (ENAGST ) ELISABETHJAY ([id number]) 1995 Date Time Provider Department 11/20/23 1:30 PM STEPHIE RAMIREZ During your visit today, we recorded the following information about you: Blood pressure Weight Height 150/82 39.2 kg 1.6 m Stephie Ramirez APRN.[facility] 11/20/2023 3:02 PM Signed Subjective Date of encounter: 11/20/2023 Jay Barber (1995), is a 28 year old male who presents for Diabetes management Important Lab History: HBA1C:10/2013: 10.8%, 12/2013: 7.4%, 03/2014: 9.6%, 03/2014: 8.1%, 05/2014: 6.7%, 05/2015: 6.9%, 08/2015: 8.4%, 12/2015: HbA1c 8.3%, 03/2016: 8.9%, 05/2016: 7.0%, 01/2018: 9.6%, 05/2018: 10.3%, 08/2018: 8.2%, 10/2018: 7.9%, 01/2019: 8.1%, 03/2019: 6.6%, 07/2019: 6.5%, 12/2019: 6.9%, 07/2020: 6.6%, 08/2020: 6.4%, 01/2021: HbA1C 8.3%, 03/2021: 8.3%, 05/2021: 7.4%, 08/2021: 7.4%, 12/2021: 7.5%, 07/2022: 8.6%, 10/2022: 8.4%, 03/2023: 7.7%, 07/2023: 6.9%, 10/2023: 6.4% Thyroid Function Testin10/2013: TSH 2.29 (0.358-3.740), free T4 1.02 (0.76-1.46), 12/2015: TSH 1.970 (0.358-3.740 uIU/mL), free T4 1.15 (0.76-1.46 ng/dL), 01/2018: TSH 1.735 (0.35-5.5), 12/2018: TSH 1.137 (0.35-5.5), 05/2019: TSH 2.293 (0.35-5.5), 01/2020: TSH 1.754 (0.35-5.5), free T4 1.2 (0.9-1.5), 01/2021: TSH 1.9 (0.27-4.2 uIU/mL), free T4 1.2 (0.9-1.7), 12/2021: TSH 3.41 (0.27-4.2 uIU/mL), free T4 1.1 (0.9-1.7), 07/2023: TSH 2.35 (0.27-4.2 uIU/mL), Renal Function Testin08/2013: creatinine 0.7, 12/2015: creatinine 0.69 mg/dL, eGFR >60,), 05/2018: Creatinine 0.72, 01/2019: Creatinine 0.86, 07/2019: Creatinine 0.73, 07/2020: Creatinine 0.65, 10/2020: Creatinine 0.64, 01/2021: Creatinine 0.81, 03/2021: Creatinine 0.73, 12/2021: Creatinine 0.64, 12/2022: Creatinine 0.78, 03/2023: Creatinine 0.83, 08/2023: Creatinine 1.13 eGFR 90, 10/2023: Creatinine 1.04 Urine for Microalbumin:10/2013: Microalbumin:Creatinine ratio ok,12/2015: microalbumin : creatinine ratio ok, 08/2017: Microalbumin:Creatinine Ratio ok, 10/2018: Microalbumin:Creatinine Ratio 535, 01/03/2020: Microalbumin:Creatinine Ratio 650, 01/2021: Microalbumin:Creatinine Ratio 361. Improved but above goal. Jay states he has used lisinopril in the past but this increased his potassium too much and it was discontinued. He will inquire further with his CF providers about losartan. I advised him to make an appointment with nephrology as we had previously discussed., 03/19/2021: Microalbumin:Creatinine Ratio 1220, 08/2021: still hasn't made appointment with kidney specialist, stressed the importance of this to prevent further kidney damage., 10/2022: prot/creat ratio in [facility], making appointment with nephrology, 07/2023: prot/creat ratio in [facility] Lipid Profile:10/2013: TC 111, HDL 42, LDL 56, TG 56, 12/2015: TC 122, HDL 52, LDL 60, TG 49, 10/2018: TC 160, HDL 72, LDL 71, TG 83, 01/03/2020: TC 253 HDL 133 LDL 112 TG 38, 01/2021: TC 179 HDL 115 LDL 54 TG 51, 03/2021: TC 233 HDL 143 LDL 84 TG 32 Liver Profile:08/2013: AST 93, ALT 65, Alkaline Phosphatase 811, 12/2015: AST 110 (9-37 U/L), ALT 164 (12-78 U/L), alkaline phosphatase 807 (46-116 U/L), Bilirubin, total 1.3 (0.2-1.0, mg/dL, 05/2018: results in care everywhere, 12/2019: results in care everywhere, 01/2020: labs in [facility], 07/2020; Alkaline Phosphatase 725 (45-117), ALT 77 (16-61), AST 163 (15-37), 12/2020: results in care everywhere., 03/2021: results In care everywhere, 12/2021: Alkaline Phosphatase 918 (38-113), bone percent 13.9%, liver percent 86.1 , 12/2022: liver function monitored by [facility] providers, 03/2023: in [facility], 08/2023: LFTS in [facility], 10/2023: LFTS in [facility] Dilated Eye Exam: Patient educated to have ophthalmology visits at least once a year. 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 08/2013: New patient visit for Cystic Fibrosis related Diabetes Previous diabetes related labs from [employer] and [email or web address] systems reviewed prior to today's office visit. Any changes made at our last diabetes management visit were abstracted accordingly (if applicable). Today's Office Visit: Jaydon Dennis: reminded patient to make appointment with for osteoporosis. Nephrology: had out patient visit in August per patient. Hepatology: seen last hospital admission in July per patient. Hematology: had appointment per patient. Lipids: advised to discuss with CF providers, may not be able to treat with high liver enzymes. Endocrinology: we manage patients CFRD only. self monitoring blood glucose data : see dexcom report. Average 14 day SG 186 predicted gmi 7.8%, 52% TIR 2% low range. Diet: can be high in carbs per patient due to CF diet to gain weight per patient.. Exercise: minimal History of hypoglycemia unawareness,-using dexcom now. Likes the g7 Insulin pump: not interested at this time until its approved with g7. Glucagon kit: mtz (more content not included)... Normal [facility] 25(OH)D3 [facility] 2022 25-hydroxyvitamin D3 [Mass/Vol] 20.8 ng/mL Low 31.0-80.0 [facility] Comment on above: Order Comment: Speci men Type: BLOOD SPECIMENOrdering Facility: [facility] Address: [address] [place] [address] Performed By: #### 1 989-3 ####[facility] [id number] [place] [address] [place] A-Tocopherol Vit E [facility] 11-12-2023 Alpha tocopherol [Mass/Vol] 8.4 mg/L Normal 6.0-23.0 [facility] Comment on above: Order Comment: Speci men Type: BLOOD SPECIMENOrdering Facility: [facility] Address: [address] [place] [address] Performed By: #### 1 823-4, 2923-1 ####[facility] [id number] [place] [address] [place] Alpha tocopherol [Mass/Vol]o n 11-12-2023 Beta+gamma tocopherol [Mass/Vol] 0.1 mg/L Low 0.3-3.2 [facility] Comment on above: Order Comment: Speci men Type: BLOOD SPECIMENOrdering Facility: [facility] Address: [address] [place] [address] Result Comment: This test was developed and its performance characteristics determined by [facility] [place] ([facility]). It has not been cleared or approved by the FDA. [facility] is regulated under CLIA as qualified to perform high-complexity testing. This test is used for clinical purposes. It should not be regarded as investigational or for research. Performed By: #### 1 823-4, 2923-1 ####[facility] [id number] [place] [address] [place] Bacteria Spt CF Resp Culton 11-12-2023 Bacteria identified Cystic fibrosis respiratory culture Nom (Sput) Abnormal [facility] Comment on above: Performed By: #### 6 23-9 ####[facility] [id number] [place] [address] [place] CBC W Auto Differential pane l (Bld)on 11-12-2023 Basophils (Bld) [#/Vol] 0.07 10*3/uL Normal <0.11 [facility] Comment on above: Order Comment: Speci men Type: BLOOD SPECIMENOrdering Facility: [facility] Address: [address] [place] [address] Performed By: #### 5 7021-8 ####[facility] [id number] [place] [address] [place] Basophils/100 WBC (Bld) 0.9 % Normal [facility] Comment on above: Order Comment: Speci men Type: BLOOD SPECIMENOrdering Facility: [facility] Address: [address] [place] [address] Performed By: #### 5 7021-8 ####[facility] [id number] [place] [address] [place] Differential cell count method Nom (Bld) Auto Normal [facility] Comment on above: Order Comment: Speci men Type: BLOOD SPECIMENOrdering Facility: [facility] Address: [address] [place] [address] Performed By: #### 5 7021-8 ####[facility] [id number] [place] [address] [place] Eosinophils (Bld) [#/Vol] 0.31 10*3/uL Normal <0.46 [facility] Comment on above: Order Comment: Speci men Type: BLOOD SPECIMENOrdering Facility: [facility] Address: [address] [place] [address] Performed By: #### 5 7021-8 ####[facility] [id number] [place] [address] [place] Eosinophils/100 WBC (Bld) 3.8 % Normal [facility] Comment on above: Order Comment: Speci men Type: BLOOD SPECIMENOrdering Facility: [facility] Address: [address] [place] [address] Performed By: #### 5 7021-8 ####[facility] [id number] [place] [address] [place] Erythrocyte distribution width (RBC) [Ratio] 14.5 % Normal 11.5-15.0 [facility] Comment on above: Order Comment: Speci men Type: BLOOD SPECIMENOrdering Facility: [facility] Address: [address] [place] [address] Performed By: #### 5 7021-8 ####[facility] [id number] [place] [address] [place] Hematocrit (Bld) [Volume fraction] 37.5 % Low 39.0-51.0 [facility] Comment on above: Order Comment: Speci men Type: BLOOD SPECIMENOrdering Facility: [facility] Address: [address] [place] [address] Performed By: #### 5 7021-8 ####[facility] [id number] [place] [address] [place] Hemoglobin (Bld) [Mass/Vol] 11.7 g/dL Low 13.0-17.0 [facility] Comment on above: Order Comment: Speci men Type: BLOOD SPECIMENOrdering Facility: [facility] Address: [address] [place] [address] Performed By: #### 5 7021-8 ####[facility] [id number] [place] [address] [place] Immature granulocytes (Bld) [#/Vol] 10*3/uL Normal <0.10 [facility] Comment on above: Order Comment: Speci men Type: BLOOD SPECIMENOrdering Facility: [facility] Address: [address] [place] [address] Performed By: #### 5 7021-8 ####[facility] [id number] [place] [address] [place] Immature granulocytes/100 WBC (Bld) 0.2 % Normal [facility] Comment on above: Order Comment: Speci men Type: BLOOD SPECIMENOrdering Facility: [facility] Address: [address] [place] [address] Performed By: #### 5 7021-8 ####[facility] [id number] [place] [address] [place] Lymphocytes (Bld) [#/Vol] 1.96 10*3/uL Normal 1.00-4.00 [facility] Comment on above: Order Comment: Speci men Type: BLOOD SPECIMENOrdering Facility: [facility] Address: [address] [place] [address] Performed By: #### 5 7021-8 ####[facility] [id number] [place] [address] [place] Lymphocytes/100 WBC (Bld) 24.2 % Normal [facility] Comment on above: Order Comment: Speci men Type: BLOOD SPECIMENOrdering Facility: [facility] Address: [address] [place] [address] Performed By: #### 5 7021-8 ####[facility] LAB[facility] [id number] [place] [address] [place] MCH (RBC) [Entitic mass] 30.0 pg Normal 26.0-34.0 [facility] Comment on above: Order Comment: Speci men Type: BLOOD SPECIMENOrdering Facility: [facility] Address: [address] [place] [address] Performed By: #### 5 7021-8 ####[facility] [id number] [place] [address] [place] MCHC (RBC) [Mass/Vol] 31.2 g/dL Normal 30.5-36.0 [facility] Comment on above: Order Comment: Speci men Type: BLOOD SPECIMENOrdering Facility: [facility] Address: [address] [place] [address] Performed By: #### 5 7021-8 ####[facility] [id number] [place] [address] [place] MCV (RBC) [Entitic vol] 96.2 fL Normal 80.0-100.0 [facility] Comment on above: Order Comment: Speci men Type: BLOOD SPECIMENOrdering Facility: [facility] Address: [address] [place] [address] Performed By: #### 5 7021-8 ####[facility] [id number] [place] [address] [place] Monocytes (Bld) [#/Vol] 0.52 10*3/uL Normal <0.87 [facility] Comment on above: Order Comment: Speci men Type: BLOOD SPECIMENOrdering Facility: [facility] Address: [address] [place] [address] Performed By: #### 5 7021-8 ####[facility] [id number] [place] [address] [place] Monocytes/100 WBC (Bld) 6.4 % Normal [facility] Comment on above: Order Comment: Speci men Type: BLOOD SPECIMENOrdering Facility: [facility] Address: [address] [place] [address] Performed By: #### 5 7021-8 ####[facility] [id number] [place] [address] [place] Neutrophils (Bld) [#/Vol] 5.22 10*3/uL Normal 1.45-7.50 [facility] Comment on above: Order Comment: Speci men Type: BLOOD SPECIMENOrdering Facility: [facility] Address: [address] [place] [address] Performed By: #### 5 7021-8 ####[facility] [id number] [place] [address] [place] Neutrophils/100 WBC (Bld) 64.5 % Normal [facility] Comment on above: Order Comment: Speci men Type: BLOOD SPECIMENOrdering Facility: [facility] Address: [address] [place] [address] Performed By: #### 5 7021-8 ####[facility] [id number] [place] [address] [place] Nucleated RBC (Bld) [#/Vol] 10*3/uL Normal <0.01 [facility] Comment on above: Order Comment: Speci men Type: BLOOD SPECIMENOrdering Facility: [facility] Address: [address] [place] [address] Performed By: #### 5 7021-8 ####[facility] [id number] [place] [address] [place] Nucleated RBC/100 WBC (Bld) [Ratio] 0.0 /100 WBC Normal [facility] Comment on above: Order Comment: Speci men Type: BLOOD SPECIMENOrdering Facility: [facility] Address: [address] [place] [address] Performed By: #### 5 7021-8 ####[facility] [id number] [place] [address] [place] Platelet mean volume (Bld) [Entitic vol] 10.1 fL Normal 9.0-12.7 [facility] Comment on above: Order Comment: Speci men Type: BLOOD SPECIMENOrdering Facility: [facility] Address: [address] [place] [address] Performed By: #### 5 7021-8 ####[facility] [id number] [place] [address] [place] Platelets (Bld) [#/Vol] 244 10*3/uL Normal 150-400 [facility] Comment on above: Order Comment: Speci men Type: BLOOD SPECIMENOrdering Facility: [facility] Address: [address] [place] [address] Performed By: #### 5 7021-8 ####[facility] [id number] [place] [address] [place] RBC (Bld) [#/Vol] 3.90 10*6/uL Low 4.20-6.00 [facility] Comment on above: Order Comment: Speci men Type: BLOOD SPECIMENOrdering Facility: [facility] Address: [address] [place] [address] Performed By: #### 5 7021-8 ####[facility] [id number] [place] [address] [place] WBC (Bld) [#/Vol] 8.10 10*3/uL Normal 3.70-11.00 [facility] Comment on above: Order Comment: Speci men Type: BLOOD SPECIMENOrdering Facility: [facility] Address: [address] [place] [address] Performed By: #### 5 7021-8 ####[facility]IA [id number] [place] [address] [place] CNCNPATEDon 11-12-2023 CNCNPATED Normal [facility] CNOVon 11-12-2023 CNOV Normal [facility] CNSWon 11-12-2023 CNSW Normal [facility] COPPER BLOODon 11-12-2023 Copper [Mass/Vol] 108 ug/dL Normal 70-140 [facility] Comment on above: Order Comment: Speci men Type: BLOOD SPECIMENOrdering Facility: [facility] Address: [address] [place] [address] Result Comment: This test was developed and its performance characteristics determined by [facility] [place] ([facility]). It has not been cleared or approved by the FDA. [facility] is regulated under CLIA as qualified to perform high-complexity testing. This test is used for clinical purposes. It should not be regarded as investigational or for research. Performed By: #### C OPPER, 5763-8 ####[facility] LAB[facility] [id number] [place] [address] [place] Ferritin SerPl-mCncon 2022 Ferritin [Mass/Vol] 88.9 ng/mL Normal 30.3-565.7 [facility] Comment on above: Order Comment: Speci men Type: BLOOD SPECIMENOrdering Facility: [facility] Address: [address] [place] [address] Performed By: #### 2 276-4, 80923-2 ####[facility] [id number] [place] [address] [place] Iron and Iron binding capaci ty panelon 11-12-2023 Iron [Mass/Vol] 61 ug/dL Normal 41-186 [facility] Comment on above: Order Comment: Speci men Type: BLOOD SPECIMENOrdering Facility: [facility] Address: [address] [place] [id number] Performed By: #### 2 276-4, 12697-2 ####[facility] [id number] [place] [id number] [place] Iron binding capacity [Mass/Vol] 264 ug/dL Normal 232-386 [facility] Comment on above: Order Comment: Speci men Type: BLOOD SPECIMENOrdering Facility: [facility] Address: [address] [place] [address] Performed By: #### 2 276-4, 48201-0 ####[facility] [id number] [place] [address] [place] Iron/TIBC [Molar ratio] 23.1 % Normal 15.0-57.0 [facility] Comment on above: Order Comment: Speci men Type: BLOOD SPECIMENOrdering Facility: [facility] Address: [address] [place] [address] Performed By: #### 2 276-4, 41179-6 ####[facility] [id number] [place] [address] [place] PT panel Coag (PPP)on 2022 INR Coag (PPP) [Relative time] 1.1 {INR} Normal 0.9-1.3 [facility] Comment on above: Order Comment: Speci men Type: BLOOD SPECIMENOrdering Facility: [facility] Address: [address] [place] [address] Result Comment: Bridgette min K Antagonist (VKA) Therapeutic Range: INR 2 to 3 (Target INR of 2.5)Note: For patients treated with VKA drugs, such as warfarin, the [place] [employer] 2012 Guideline recommends a therapeutic INR range of 2 to 3 (target INR of 2.5). This recommendation includes high-risk patients with antiphospholipid syndrome with previous arterial or venous thromboembolism, current-generation mechanical or bioprosthetic aortic heart valve replacement.Note: Patients with mechanical aortic valve replacement and additional risk factors for thromboembolic events (atrial fibrillation, previous thromboembolism, LV dysfunction, hypercoagulable conditions) or an older generation mechanical AVR (i.e., ball in-Cage) or any mechanical MVR should have a INR therapeutic range of 2.5 to 3.5 (target INR of 3).Sam GH, et al. Chest 2012, 141:7S-47SNishrhoda RA, et al. [facility] 2017, 70: 252-289 Performed By: #### 3 4528-0 ####[facility] [id number] [place] [address] [place] PT Coag (PPP) [Time] 11.3 s Normal 9.7-13.0 [facility] Comment on above: Order Comment: Kanu sainz Type: BLOOD SPECIMENOrdering Facility: [facility] Address: [address] [place] [address] Performed By: #### 3 4528-0 ####[facility] [id number] [place] [address] [place] Vit A SerPl-mCncon 11-12- 3 Retinol [Mass/Vol] 0.12 mg/L Low 0.30-1.20 [facility] Comment on above: Order Comment: Kanu sainz Type: BLOOD SPECIMENOrdering Facility: [facility] Address: [address] [place] [address] Result Comment: This test was developed and its performance characteristics determined by [facility] ([facility]). It has not been cleared or approved by the FDA. [facility] is regulated under CLIA as qualified to perform high-complexity testing. This test is used for clinical purposes. It should not be regarded as investigational or for research. Performed By: #### 1 823-4, 2923-1 ####[facility] [id number] [place] [address] [place] Zinc SerPl-mCncon 11-12-2023 Zinc [Mass/Vol] 43 ug/dL Low 60-120 [facility] Comment on above: Order Comment: Speci men Type: BLOOD SPECIMENOrdering Facility: [facility] Address: [address] [place] [address] Result Comment: This test was developed and its performance characteristics determined by [facility]'s [facility] [place] ([facility]). It has not been cleared or approved by the FDA. [facility] is regulated under CLIA as qualified to perform high-complexity testing. This test is used for clinical purposes. It should not be regarded as investigational or for research. Performed By: #### C TAMERA, 5763-8 ####[facility] [id number] [place] [address] [place] CBC W Auto Differential pane l (Bld)on 11-05-2023 Basophils (Bld) [#/Vol] 0.09 10*3/uL Normal <0.11 [facility] Comment on above: Order Comment: Speci men Type: BLOOD SPECIMENOrdering Facility: [facility] Address: [address] [place] [address] Performed By: #### 5 7021-8 ####[facility] [id number] [place] [address] [place] Basophils/100 WBC (Bld) 1.0 % Normal [facility] Comment on above: Order Comment: Speci men Type: BLOOD SPECIMENOrdering Facility: [facility] Address: [address] [place] [address] Performed By: #### 5 7021-8 ####[facility] [id number] [place] [address] [place] Differential cell count method Nom (Bld) Auto Normal [facility] Comment on above: Order Comment: Speci men Type: BLOOD SPECIMENOrdering Facility: [facility] Address: [address] [place] [address] Performed By: #### 5 7021-8 ####[facility] [id number] [place] [address] [place] Eosinophils (Bld) [#/Vol] 0.42 10*3/uL Normal <0.46 [facility] Comment on above: Order Comment: Speci men Type: BLOOD SPECIMENOrdering Facility: [facility] Address: [address] [place] [address] Performed By: #### 5 7021-8 ####[facility] [id number] [place] [address] [place] Eosinophils/100 WBC (Bld) 4.6 % Normal [facility] Comment on above: Order Comment: Speci men Type: BLOOD SPECIMENOrdering Facility: [facility] Address: [address] [place] [address] Performed By: #### 5 7021-8 ####[facility] [id number] [place] [address] [place] Erythrocyte distribution width (RBC) [Ratio] 13.9 % Normal 11.5-15.0 [facility] Comment on above: Order Comment: Speci men Type: BLOOD SPECIMENOrdering Facility: [facility] Address: [address] [place] [address] Performed By: #### 5 7021-8 ####[facility] [id number] [place] [address] [place] Hematocrit (Bld) [Volume fraction] 37.6 % Low 39.0-51.0 [facility] Comment on above: Order Comment: Speci men Type: BLOOD SPECIMENOrdering Facility: [facility] Address: [address] [place] [address] Performed By: #### 5 7021-8 ####[facility] [id number] [place] [address] [place] Hemoglobin (Bld) [Mass/Vol] 12.5 g/dL Low 13.0-17.0 [facility] Comment on above: Order Comment: Speci men Type: BLOOD SPECIMENOrdering Facility: [facility] Address: [address] [place] [address] Performed By: #### 5 7021-8 ####[facility] [id number] [place] [address] [place] Immature granulocytes (Bld) [#/Vol] 0.03 10*3/uL Normal <0.10 [facility] Comment on above: Order Comment: Speci men Type: BLOOD SPECIMENOrdering Facility: [facility] Address: [address] [place] [address] Performed By: #### 5 7021-8 ####[facility] [id number] [place] [address] [place] Immature granulocytes/100 WBC (Bld) 0.3 % Normal [facility] Comment on above: Order Comment: Speci men Type: BLOOD SPECIMENOrdering Facility: [facility] Address: [address] [place] [address] Performed By: #### 5 7021-8 ####[facility] [id number] [place] [address] [place] Lymphocytes (Bld) [#/Vol] 1.80 10*3/uL Normal 1.00-4.00 [facility] Comment on above: Order Comment: Speci men Type: BLOOD SPECIMENOrdering Facility: [facility] Address: [address] [place] [address] Performed By: #### 5 7021-8 ####[facility] [id number] [place] [address] [place] Lymphocytes/100 WBC (Bld) 19.9 % Normal [facility] Comment on above: Order Comment: Speci men Type: BLOOD SPECIMENOrdering Facility: [facility] Address: [address] [place] [address] Performed By: #### 5 7021-8 ####[facility] [id number] [place] [address] [place] MCH (RBC) [Entitic mass] 30.8 pg Normal 26.0-34.0 [facility] Comment on above: Order Comment: Speci men Type: BLOOD SPECIMENOrdering Facility: [facility] Address: [address] [place] [address] Performed By: #### 5 7021-8 ####[facility] [id number] [place] [address] [place] MCHC (RBC) [Mass/Vol] 33.2 g/dL Normal 30.5-36.0 [facility] Comment on above: Order Comment: Speci men Type: BLOOD SPECIMENOrdering Facility: [facility] Address: [address] [place] [address] Performed By: #### 5 7021-8 ####[facility] [id number] [place] [address] [place] MCV (RBC) [Entitic vol] 92.6 fL Normal 80.0-100.0 [facility] Comment on above: Order Comment: Speci men Type: BLOOD SPECIMENOrdering Facility: [facility] Address: [address] [place] [address] Performed By: #### 5 7021-8 ####[facility] [id number] [place] [address] [place] Monocytes (Bld) [#/Vol] 0.73 10*3/uL Normal <0.87 [facility] Comment on above: Order Comment: Speci men Type: BLOOD SPECIMENOrdering Facility: [facility] Address: [address] [place] [address] Performed By: #### 5 7021-8 ####[facility] [id number] [place] [address] [place] Monocytes/100 WBC (Bld) 8.1 % Normal [facility] Comment on above: Order Comment: Speci men Type: BLOOD SPECIMENOrdering Facility: [facility] Address: [address] [place] [address] Performed By: #### 5 7021-8 ####[facility] [id number] [place] [address] [place] Neutrophils (Bld) [#/Vol] 5.97 10*3/uL Normal 1.45-7.50 [facility] Comment on above: Order Comment: Speci men Type: BLOOD SPECIMENOrdering Facility: [facility] Address: [address] [place] [address] Performed By: #### 5 7021-8 ####[facility] LABCLIA [id number] [place] [address] [place] Neutrophils/100 WBC (Bld) 66.1 % Normal [facility] Comment on above: Order Comment: Speci men Type: BLOOD SPECIMENOrdering Facility: [facility] Address: [address] [place] [address] Performed By: #### 5 7021-8 ####[facility] LABCLIA [id number] [place] [address] [place] Nucleated RBC (Bld) [#/Vol] 10*3/uL Normal <0.01 [facility] Comment on above: Order Comment: Speci men Type: BLOOD SPECIMENOrdering Facility: [facility] Address: [address] [place] [address] Performed By: #### 5 7021-8 ####[facility] LABCLIA [id number] [place] [address] [place] Nucleated RBC/100 WBC (Bld) [Ratio] 0.0 /100 WBC Normal [facility] Comment on above: Order Comment: Speci men Type: BLOOD SPECIMENOrdering Facility: [facility] Address: [address] [place] [address] Performed By: #### 5 7021-8 ####[facility] LABIA [id number] [address] [address] [place] Platelet mean volume (Bld) [Entitic vol] 10.6 fL Normal 9.0-12.7 [facility] Comment on above: Order Comment: Speci men Type: BLOOD SPECIMENOrdering Facility: [facility] Address: [address] [place] [address] Performed By: #### 5 7021-8 ####[facility] LABIA [id number] [place] [address] [place] Platelets (Bld) [#/Vol] 95 10*3/uL Low 150-400 [facility] Comment on above: Order Comment: Speci men Type: BLOOD SPECIMENOrdering Facility: [facility] Address: [address] [place] [address] Result Comment: No c lot detected. Performed By: #### 5 7021-8 ####[facility] LABIA [id number] [place] [address] [place] RBC (Bld) [#/Vol] 4.06 10*6/uL Low 4.20-6.00 [facility] Comment on above: Order Comment: Speci men Type: BLOOD SPECIMENOrdering Facility: [facility] Address: [address] [place] [address] Performed By: #### 5 7021-8 ####[facility] LABIA [id number] [place] [address] [place] WBC (Bld) [#/Vol] 9.04 10*3/uL Normal 3.70-11.00 [facility] Comment on above: Order Comment: Speci men Type: BLOOD SPECIMENOrdering Facility: [facility] Address: [address] [place] [address] Performed By: #### 5 7021-8 ####[facility] LABIA [id number] [place] [address] [place] Comprehensive metabolic 2000 panelon 11-05-2023 Albumin [Mass/Vol] 2.9 g/dL Low 3.9-4.9 [facility] Comment on above: Order Comment: Speci men Type: BLOOD SPECIMENOrdering Facility: [facility] Address: [address] [place] [address] Performed By: #### 2 4323-8, 14396-8, 2776- ####[facility] LABCLIA [id number] [place] [address] [place] ALP [Catalytic activity/Vol] 1023 U/L High 38-113 [facility] Comment on above: Order Comment: Speci men Type: BLOOD SPECIMENOrdering Facility: [facility] Address: [address] [place] [address] Performed By: #### 2 4323-8, , 2776-12 ####[facility] LABCLIA [id number] [place] [address] [place] ALT [Catalytic activity/Vol] 35 U/L Normal 10-54 [facility] Comment on above: Order Comment: Speci men Type: BLOOD SPECIMENOrdering Facility: [facility] Address: [address] [place] [address] Performed By: #### 2 4323-8, , 2776-12 ####[facility] LABCLIA [id number] [place] [address] [place] Anion gap [Moles/Vol] 7 mmol/L Low 9-18 [facility] Comment on above: Order Comment: Speci men Type: BLOOD SPECIMENOrdering Facility: [facility] Address: [address] [place] [address] Performed By: #### 2 4323-8, , 2776-12 ####[facility] LABCLIA [id number] [place] [address] [place] AST [Catalytic activity/Vol] 58 U/L High 14-40 [facility] Comment on above: Order Comment: Speci men Type: BLOOD SPECIMENOrdering Facility: [facility] Address: [address] [place] [address] Performed By: #### 2 4323-8, , 2776-12 ####[facility] LABCLIA [id number] [place] [address] [place] Bilirubin [Mass/Vol] 0.5 mg/dL Normal 0.2-1.3 [facility] Comment on above: Order Comment: Speci men Type: BLOOD SPECIMENOrdering Facility: [facility] Address: [address] [place] [address] Performed By: #### 2 4323-8, , 2776-12 ####[facility] LABCLIA [id number] [place] [address] [place] Calcium [Mass/Vol] 8.6 mg/dL Normal 8.5-10.2 [facility] Comment on above: Order Comment: Speci men Type: BLOOD SPECIMENOrdering Facility: [facility] Address: [address] [place] [address] Performed By: #### 2 4323-8, , 2776-12 ####[facility] LABCLIA [id number] [place] [address] [place] Chloride [Moles/Vol] 102 mmol/L Normal 97-105 [facility] Comment on above: Order Comment: Speci men Type: BLOOD SPECIMENOrdering Facility: [facility] Address: [address] [place] [address] Performed By: #### 2 4323-8, , 2776-12 ####[facility] LABCLIA [id number] [place] [id number] [place] CO2 [Moles/Vol] 24 mmol/L Normal 22-30 [facility] Comment on above: Order Comment: Speci men Type: BLOOD SPECIMENOrdering Facility: [facility] Address: [address] [place] [id number] Performed By: #### 2 4323-8, , 2776-12 ####[facility] LABCLIA [id number] [address] [address] [place] Creatinine [Mass/Vol] 1.04 mg/dL Normal 0.73-1.22 [facility] Comment on above: Order Comment: Paruli men Type: BLOOD SPECIMENOrdering Facility: [facility] Address: [address] [place] [address] Performed By: #### 2 4323-8, , 2776-12 ####[facility] LABIA [id number] [place] [address] [place] Creatinine and Glomerular filtration rate.predicted panel (S/P/Bld) 99 mL/min/1.73m??? Normal >=60 [facility] Comment on above: Order Comment: Kanu men Type: BLOOD SPECIMENOrdering Facility: [facility] Address: [address] [place] [address] Result Comment: Janeth mated Glomerular Filtration Rate (eGFR) is calculated using the 2020 CKD-EPI creatinine equation. This equation utilizes serum creatinine, sex, and age as parameters. The creatinine assay has traceable calibration to isotope dilution-mass spectrometry. Refer to KDIGO guidelines for clinical interpretation. In patients with unstable renal function, e.g. those with acute kidney injury, the eGFR may not accurately reflect actual GFR. Performed By: #### 2 4323-8, , 2776-12 ####[facility] LABIA [id number] [place] [id number] [place] Glucose [Mass/Vol] 154 mg/dL High 74-99 [facility] Comment on above: Order Comment: Kanu sainz Type: BLOOD SPECIMENOrdering Facility: [facility] Address: [address] [place] [address] Result Comment: The [place] [employer] (ADA) provides guidance for cutoff values for fasting glucose and random glucose. The ADA defines fasting as no caloric intake for at least 8 hours. Fasting plasma glucose results between 100 to 125 mg/dL indicate increased risk for diabetes (prediabetes).Fasting plasma glucose results greater than or equal to 126 mg/dL meet the criteria for diagnosis of diabetes. In the absence of unequivocal hyperglycemia, results should be confirmed by repeat testing. In a patient with classic symptoms of hyperglycemia or hyperglycemic crisis, random plasma glucose results greater than or equal to 200 mg/dL meet the criteria for diagnosis of diabetes.Reference: Standards of Medical Care in Diabetes 2016, [place] [employer]. Diabetes Care. 2016.39(Suppl 1). Performed By: #### 2 4323-8, , 2776-12 ####[facility] LABIA [id number] [place] [address] [place] Potassium [Moles/Vol] 5.9 mmol/L High 3.7-5.1 [facility] Comment on above: Order Comment: Speci men Type: BLOOD SPECIMENOrdering Facility: [facility] Address: [address] [place] [address] Performed By: #### 2 4323-8, , 2776-12 ####[facility] LABIA [id number] [place] [address] [place] Protein [Mass/Vol] 8.8 g/dL High 6.3-8.0 [facility] Comment on above: Order Comment: Speci men Type: BLOOD SPECIMENOrdering Facility: [facility] Address: [address] [place] [address] Performed By: #### 2 4323-8, , 2776-12 ####[facility] LABIA [id number] [place] [address] [place] Sodium [Moles/Vol] 133 mmol/L Low 136-144 [facility] Comment on above: Order Comment: Speci men Type: BLOOD SPECIMENOrdering Facility: [facility] Address: [address] [place] [address] Performed By: #### 2 4323-8, 75649-7, 2777-1 ####[facility] LABIA [id number] [place] [address] [place] Urea nitrogen [Mass/Vol] 24 mg/dL Normal 9-24 [facility] Comment on above: Order Comment: Speci men Type: BLOOD SPECIMENOrdering Facility: [facility] Address: [address] [place] [address] Performed By: #### 2 4323-8, 53021-9, 2777-1 ####[facility] LABIA [id number] [place] [address] [place] Magnesium SerPl-ncon 11-05 Magnesium [Mass/Vol] 2.0 mg/dL Normal 1.7-2.3 [facility] Comment on above: Order Comment: Speci men Type: BLOOD SPECIMENOrdering Facility: [facility] Address: [address] [place] [address] Performed By: #### 2 4323-8, 57505-1, 2777-1 ####[facility] LABIA [id number] [place] [address] [place] Phosphate SerPl-mCncon 11-05 Phosphate [Mass/Vol] 5.6 mg/dL High 2.7-4.8 [facility] Comment on above: Order Comment: Speci men Type: BLOOD SPECIMENOrdering Facility: [facility] Address: [address] [place], [place] [address] Performed By: #### 2 4323-8, 58552-0, 2777-1 ####[facility] LABIA [id number] [place] [id number] [place] CNPNon 10-03-2023 CNPN Normal [facility] CNPNon 09-30-2023 CNPN Telephone (AGENDOG) ELISABETHJAY ([id number]) 1995 M Date Time Provider Department 09/30/23 DARREN NICOLE During your visit today, we recorded the following information about you: Nancy Díaz, AMANDA 09/30/2023 8:36 AM Signed Left patient a VM asking to call and schedule a New patient appointment with Darren in Dr. Mena office AMANDA Deleon September 30, 2023 8:36 AM Allergies As of Date: 09/30/2023 Noted Allergy Reaction VANCOMYCIN 06/21/2013 9 - Itching 2 - Rash Comments: Gets Red Man syndrome and pt if not premedicated with benadryl prior to Vancomycin infusions. CEFOXITIN 11/21/2006 2 - Rash 14 - Other: See Comments Comments: Severe abdominal pain, diarrhea, rash Severe Abdominal Pains LINEZOLID 07/02/2023 2 - Rash 8 - GI Upset Date Reviewed: 09/24/2023 Reviewed by: She Pete DO - Fully Assessed Prescriptions as of 09/30/2023 - insulin glargine (LANTUS SOLOSTAR U-100 INSULIN) 100 unit/mL (3 mL) inject 8 units subcutaneously at bedtime - CREON 36,000-114,000- 180,000 unit delayed release capsule Take 3 capsules by mouth three times a day with meals. 3 with snacks - dornase christi (PULMOZYME) 1 mg/mL nebulizer solution Inhale 2.5 mL as instructed once daily. - elexacaftor 100 mg-tezacaftor 50 mg-ivacaftor 75 mg(d)/ivacaftor 150 mg(n) tablets (TRIKAFTA) Alternate between 2(starting 07/30) and 1 tablet every morning , hold evening dose - ipratropium-albuterol (DUONEB) 0.5 mg-3 mg(2.5 mg base)/3 mL nebu Inhale 3 mL as instructed every 4 hours as needed for wheezing/shortness of breath. - Vit A,C,K-Xxow-Yxpcvi (PRESERVISION AREDS) 4,296 mcg-226 mg-90 mg cap Take 1 capsule by mouth twice daily. Take with food. - Blood-Glucose Meter monitoring kit For monitoring sugars 3x/day - Lancets lancets Use as instructed 3x/day - blood sugar diagnostic (BLOOD GLUCOSE TEST) test strip 3x/day - albuterol HFA (VENTOLIN HFA) 90 mcg/actuation inhaler inhale 2 puffs by mouth as directed every 4 hours if needed for wheezing or shortness of breath - VITAMIN D2 1,250 mcg (50,000 unit) capsule Take 1 capsule by mouth two times a week. - torsemide (DEMADEX) 10 mg tablet Take 1 tablet by mouth once daily. - fluticasone (FLONASE) 50 mcg/actuation nasal spray Use 1-2 Sprays in each nostril once daily. - fluticasone (FLOVENT) 220 mcg/actuation inhaler Inhale 1 Puff as instructed twice daily. - Blood-Glucose Meter,Continuous (DEXCOM G7 CODER OPERATOR) [facility] For monitoring sugars - Blood-Glucose Sensor (DEXCOM G7 SENSOR) jean-paul One sensor every 10 days - insulin lispro (HUMALOG KWIKPEN INSULIN) 100 unit/mL Dose varies units with meals and sliding scale, using about 30 total units a day - Insulin Calvin, Disposable, (BD ULTRA-FINE YARON PEN NEEDLE) 32 gauge x 5/32 5x/day - glucagon (BAQSIMI) 3 mg/actuation nasal spray Use 1 Calvin in the nose as needed. May repeat after 15 minutes using a new device if there is no response for severe low blood sugar event - aztreonam lysine (CAYSTON) 75 mg/mL nebulizer solution Inhale 1 mL as instructed three times daily. 28 days on 28 days off Send altera nebulizer with each shipment - Nebulizers 1 Each three times daily. - cetirizine (ZYRTEC) 5 mg tablet Take 10 mg by mouth once daily. - carvedilol (COREG) 6.25 mg tablet Take 1 tablet by mouth twice daily with meals. - montelukast (SINGULAIR) 10 mg tablet Take 1 tablet by mouth daily at bedtime. - ursodiol (ACTIGALL) 300 mg capsule Take 300 mg by mouth twice daily. - Nebulizers 1 Each three times daily. - fluticasone-salmeterol (ADVAIR) 500-50 mcg/dose dsdv Inhale 1 Puff as instructed twice daily. 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, *2022 Pancreatic insufficiency due to cystic fibrosis*2022 Cystic fibrosis with pulmonary manifestations (*2022 Diabetes mellitus related to CF (cystic fibrosi*2022 Cystic fibrosis (HCC) [E84.9] 07/26/2022 Severe protein-calorie malnutrition (HCC) [E43] 07/26/2022 Essential hypertension [I10] 11/05/2022 Cystic fibrosis with pulmonary exacerbation (HC*11/05/2022 URI due to influenza A virus [J10.1] 11/05/2022 Hyponatremia [E87.1] 11/05/2022 Acute respiratory failure with hypoxia (HCC) [J*11/06/2022 Hypokalemia [E87.6] 11/08/2022 Hypomagnesemia [E83.42] 11/08/2022 Anxiety and depression [F41.9, F32.A] 03/07/2023 Vitamin D deficiency [E55.9] 03/07/2023 CF (cystic fibrosis) (HCC) [E84.9] 07/02/2023 Epigastric pain [R10.13] 07/02/2023 Normocytic anemia [D64.9] 07/02/2023 Chronic constipation [K59.09] RITA (acute kidney injury) (HCC) [N17.9] 07/03/2023 Dehydration with hyponatremia [E86.0, E87.1] 07/03/2023 Iron de (more content not included)... Normal [facility] BD VFA WITH DXA - AXIAL SKEL ETONon 09-24-2023 BD VFA WITH DXA - AXIAL SKELETON * * *Final Report* * * DATE OF EXAM: Sep 24 2023 9:35AM ANX 0802 - BD VFA WITH DXA - AXIAL SKELETON / PROCEDURE REASON: Osteoporosis without current pathological fracture, unspecified osteoporosis typ * * * * Physician Interpretation * * * * EXAM TITLE: BD VFA WITH DXA - AXIAL SKELETON DATE: 09/29/2023 7:30 AM COMPARISON:None CLINICAL INDICATION/HISTORY: Cystic fibrosis TECHNIQUE: DXA [facility] v.13.4 examination was performed on the lumbar spine and hip. FINDINGS: 1. L1-L4 BMD is 0.92 g/cm2 which is 75% of peak bone mass compared to young normals which is -2.5 standard deviations relative to the mean of young normals (T-score). According to the World Health Organization criteria, this would be classified as osteoporosis. 2. Left hip BMD is 0.69 g/cm2 which is 63% of peak bone mass compared to young normals which is -2.9 standard deviations relative to the mean of young normals (T-score). According to the World Health Organization criteria, this would be classified as osteoporosis. 3. Left femoral neck BMD is 0.66 g/cm2 which is 62% of peak bone mass compared to young normals which is -3.1 standard deviations relative to the mean of young normals (T-score). According to the World Health Organization criteria, this would be classified as osteoporosis. Vertebral fracture assessment was performed from T4 to L4. No significant compression deformity is observed. IMPRESSION: Osteoporosis. No compression deformity is observed on vertebral fracture assessment. RELATIVE FRACTURE RISK TABLE NOTE: This table applies to post-menopausal females. T-score Fracture risk 0 average risk for normal 40 year old -1 2 times the normal -2 4 times the normal -3 8 times the normal etc. GENERAL RECOMMENDATIONS FOR PREVENTION OF BONE LOSS: 1. 1200 mg - 1500 mg calcium per day if no history of renal calculi for adults 50 years and over. 2. 800 - 1000 International Units of vitamin D3 per day if no history of renal calculi for adults 50 years and over. 3. Weight bearing exercise 4. Discontinue smoking 5. Avoid excessive use of caffeine, soft drinks, and alcoholic beverages. The National Osteoporosis Foundation recommends that treatment be considered for patients with T-scores of -2 or lower (-1 or lower if patient at high risk for accelerated bone loss). Manager Code: KATHIE Transcribe Date/Time: Sep 29 2023 7:30A Dictated by : BONNIE WALLS MD This examination was interpreted and the report reviewed and electronically signed by: BONNIE WALLS MD on Sep 29 2023 7:32AM EST [id number] Normal [facility] CNOVon 09-24-2023 CNOV Normal [facility] CBC W Auto Differential pane l (Bld)on 09-10-2023 Basophils (Bld) [#/Vol] 0.06 10*3/uL Normal <0.11 [facility] Comment on above: Order Comment: Speci men Type: BLOOD SPECIMENOrdering Facility: [facility] Address: [address] [place] [address] Performed By: #### 5 7021-8 ####[facility] [id number] [place] [address] [place] Basophils/100 WBC (Bld) 0.8 % Normal [facility] Comment on above: Order Comment: Speci men Type: BLOOD SPECIMENOrdering Facility: [facility] Address: [address] [place] [address] Performed By: #### 5 7021-8 ####[facility] [id number] [place] [address] [place] Differential cell count method Nom (Bld) Auto Normal [facility] Comment on above: Order Comment: Speci men Type: BLOOD SPECIMENOrdering Facility: [facility] Address: [address] [place] [address] Performed By: #### 5 7021-8 ####[facility] [id number] [place] [address] [place] Eosinophils (Bld) [#/Vol] 0.30 10*3/uL Normal <0.46 [facility] Comment on above: Order Comment: Speci men Type: BLOOD SPECIMENOrdering Facility: [facility] Address: [address] [place] [address] Performed By: #### 5 7021-8 ####[facility] RUSSELLKENDRICKZAKILIA [id number] [place] [address] [place] Eosinophils/100 WBC (Bld) 3.8 % Normal [facility] Comment on above: Order Comment: Speci men Type: BLOOD SPECIMENOrdering Facility: [facility] Address: [address] [place] [address] Performed By: #### 5 7021-8 ####[facility] [id number] [place] [address] [place] Erythrocyte distribution width (RBC) [Ratio] 14.3 % Normal 11.5-15.0 [facility] Comment on above: Order Comment: Speci men Type: BLOOD SPECIMENOrdering Facility: [facility] Address: [address] [place] [address] Performed By: #### 5 7021-8 ####[facility] [id number] [place] [address] [place] Hematocrit (Bld) [Volume fraction] 28.8 % Low 39.0-51.0 [facility] Comment on above: Order Comment: Speci men Type: BLOOD SPECIMENOrdering Facility: [facility] Address: [address] [place] [address] Performed By: #### 5 7021-8 ####[facility]ENTER[facility] [id number] [place] [address] [place] Hemoglobin (Bld) [Mass/Vol] 10.0 g/dL Low 13.0-17.0 [facility] Comment on above: Order Comment: Speci men Type: BLOOD SPECIMENOrdering Facility: [facility] Address: [address] [place] [address] Performed By: #### 5 7021-8 ####[facility] [id number] [place] [address] [place] Immature granulocytes (Bld) [#/Vol] 10*3/uL Normal <0.10 [facility] Comment on above: Order Comment: Speci men Type: BLOOD SPECIMENOrdering Facility: [facility] Address: [address] [place] [address] Performed By: #### 5 7021-8 ####[facility]GNCJ[facility] [id number] [place] [address] [place] Immature granulocytes/100 WBC (Bld) 0.3 % Normal [facility] Comment on above: Order Comment: Speci men Type: BLOOD SPECIMENOrdering Facility: [facility] Address: [address] [place] [address] Performed By: #### 5 7021-8 ####[facility] [id number] [place] [address] [place] Lymphocytes (Bld) [#/Vol] 1.61 10*3/uL Normal 1.00-4.00 [facility] Comment on above: Order Comment: Speci men Type: BLOOD SPECIMENOrdering Facility: [facility] Address: [address] [place] [address] Performed By: #### 5 7021-8 ####[facility] [id number] [place] [address] [place] Lymphocytes/100 WBC (Bld) 20.1 % Normal [facility] Comment on above: Order Comment: Speci men Type: BLOOD SPECIMENOrdering Facility: [facility] Address: [address] [place] [address] Performed By: #### 5 7021-8 ####[facility] [id number] [place] [address] [place] MCH (RBC) [Entitic mass] 31.1 pg Normal 26.0-34.0 [facility] Comment on above: Order Comment: Speci men Type: BLOOD SPECIMENOrdering Facility: [facility] Address: [address] [place] [address] Performed By: #### 5 7021-8 ####[facility] RUSSELLKENDRICKZAKILIA [id number] [place] [address] [place] MCHC (RBC) [Mass/Vol] 34.7 g/dL Normal 30.5-36.0 [facility] Comment on above: Order Comment: Speci men Type: BLOOD SPECIMENOrdering Facility: [facility] Address: [address] [place] [address] Performed By: #### 5 7021-8 ####[facility] PETERSBURGNCA [id number] [place] [address] [place] MCV (RBC) [Entitic vol] 89.4 fL Normal 80.0-100.0 [facility] Comment on above: Order Comment: Speci men Type: BLOOD SPECIMENOrdering Facility: [facility] Address: [address] [place] [address] Performed By: #### 5 7021-8 ####[facility] [id number] [place] [address] [place] Monocytes (Bld) [#/Vol] 0.65 10*3/uL Normal <0.87 [facility] Comment on above: Order Comment: Speci men Type: BLOOD SPECIMENOrdering Facility: [facility] Address: [address] [place] [address] Performed By: #### 5 7021-8 ####[facility]ENTERL[facility] [id number] [place] [address] [place] Monocytes/100 WBC (Bld) 8.1 % Normal [facility] Comment on above: Order Comment: Speci men Type: BLOOD SPECIMENOrdering Facility: [facility] Address: [address] [place] [address] Performed By: #### 5 7021-8 ####[facility] [id number] [place] [address] [place] Neutrophils (Bld) [#/Vol] 5.36 10*3/uL Normal 1.45-7.50 [facility] Comment on above: Order Comment: Speci men Type: BLOOD SPECIMENOrdering Facility: [facility] Address: [address] [place] [address] Performed By: #### 5 7021-8 ####[facility] POINTWHILIA [id number] [place] [address] [place] Neutrophils/100 WBC (Bld) 66.9 % Normal [facility] Comment on above: Order Comment: Speci men Type: BLOOD SPECIMENOrdering Facility: [facility] Address: [address] [place] [address] Performed By: #### 5 7021-8 ####[facility] CENTERJENNIFFER [id number] [place] [address] [place] Nucleated RBC (Bld) [#/Vol] 10*3/uL Normal <0.01 [facility] Comment on above: Order Comment: Speci men Type: BLOOD SPECIMENOrdering Facility: [facility] Address: [address] [place] [address] Performed By: #### 5 7021-8 ####[facility] CENTERLIA [id number] [place] [address] [place] Nucleated RBC/100 WBC (Bld) [Ratio] 0.0 /100 WBC Normal [facility] Comment on above: Order Comment: Speci men Type: BLOOD SPECIMENOrdering Facility: [facility] Address: [address] [place] [address] Performed By: #### 5 7021-8 ####[facility] CENTERLIA [id number] [place] [address] [place] Platelet mean volume (Bld) [Entitic vol] 9.2 fL Normal 9.0-12.7 [facility] Comment on above: Order Comment: Speci men Type: BLOOD SPECIMENOrdering Facility: [facility] Address: [address] [place] [address] Performed By: #### 5 7021-8 ####[facility] RENENCLIA [id number] [place] [address] [place] Platelets (Bld) [#/Vol] 185 10*3/uL Normal 150-400 [facility] Comment on above: Order Comment: Speci men Type: BLOOD SPECIMENOrdering Facility: [facility] Address: [address] [place] [address] Performed By: #### 5 7021-8 ####[facility]GNCL[facility] [id number] [place] [address] [place] RBC (Bld) [#/Vol] 3.22 10*6/uL Low 4.20-6.00 [facility] Comment on above: Order Comment: Speci men Type: BLOOD SPECIMENOrdering Facility: [facility] Address: [address] [place] [address] Performed By: #### 5 7021-8 ####[facility] PETERSBURGNCLIA [id number] [place] [address] [place] WBC (Bld) [#/Vol] 8.00 10*3/uL Normal 3.70-11.00 [facility] Comment on above: Order Comment: Speci men Type: BLOOD SPECIMENOrdering Facility: [facility] Address: [address] [place] [address] Performed By: #### 5 7021-8 ####[facility] PETERSBURGNCLIA [id number] [place] [address] [place] Comprehensive metabolic 2000 panelon 09-10-2023 Albumin [Mass/Vol] 2.8 g/dL Low 3.9-4.9 [facility] Comment on above: Order Comment: Speci men Type: BLOOD SPECIMENOrdering Facility: [facility] Address: [address] [id number] Performed By: #### 2 4323-8, ####[facility] LABCLIA [id number] [place] [id number] [place] ALP [Catalytic activity/Vol] 841 U/L High 38-113 [facility] Comment on above: Order Comment: Speci men Type: BLOOD SPECIMENOrdering Facility: [facility] Address: [address] [place] [address] Performed By: #### 2 432-8, ####[facility] LABCLIA [id number] [place] [address] [place] ALT [Catalytic activity/Vol] 38 U/L Normal 10-54 [facility] Comment on above: Order Comment: Speci men Type: BLOOD SPECIMENOrdering Facility: [facility] Address: [address] [place] [address] Performed By: #### 2 4328, ####[facility] LABCLIA [id number] [place] [address] [place] Anion gap [Moles/Vol] 6 mmol/L Low 9-18 [facility] Comment on above: Order Comment: Speci men Type: BLOOD SPECIMENOrdering Facility: [facility] Address: [address] [place] [address] Performed By: #### 2 8, ####[facility] LABCLIA [id number] [place] [id number] [place] AST [Catalytic activity/Vol] 51 U/L High 14-40 [facility] Comment on above: Order Comment: Speci men Type: BLOOD SPECIMENOrdering Facility: [facility] Address: [address] [place] [address] Performed By: #### 2 4323-8, ####[facility] LABCLIA [id number] [place] [address] [place] Bilirubin [Mass/Vol] 0.8 mg/dL Normal 0.2-1.3 [facility] Comment on above: Order Comment: Speci men Type: BLOOD SPECIMENOrdering Facility: [facility] Address: [address] [place] [address] Performed By: #### 2 4323-8, ####[facility] LABCLIA [id number] [place] [address] [place] Calcium [Mass/Vol] 8.9 mg/dL Normal 8.5-10.2 [facility] Comment on above: Order Comment: Speci men Type: BLOOD SPECIMENOrdering Facility: [facility] Address: [address] [place] [address] Performed By: #### 2 43238, ####[facility] LABCLIA [id number] [place] [address] [place] Chloride [Moles/Vol] 101 mmol/L Normal 97-105 [facility] Comment on above: Order Comment: Speci men Type: BLOOD SPECIMENOrdering Facility: [facility] Address: [address] [place] [address] Performed By: #### 2 432-8, ####[facility] LABCLIA [id number] [place] [id number] [place] CO2 [Moles/Vol] 25 mmol/L Normal 22-30 [facility] Comment on above: Order Comment: Speci men Type: BLOOD SPECIMENOrdering Facility: [facility] Address: [address] [place] [address] Performed By: #### 2 432-8, ####[facility] LABCLIA [id number] [place] [id number] [place] Creatinine [Mass/Vol] 0.86 mg/dL Normal 0.73-1.22 [facility] Comment on above: Order Comment: Kanu sainz Type: BLOOD SPECIMENOrdering Facility: [facility] Address: [address] [place] [address] Performed By: #### 2 4323-8, ####[facility] LABCLIA [id number] [place] [address] [place] Creatinine and Glomerular filtration rate.predicted panel (S/P/Bld) 119 mL/min/1.73m??? Normal >=60 [facility] Comment on above: Order Comment: Kanu sainz Type: BLOOD SPECIMENOrdering Facility: [facility] Address: [address] [place] [address] Result Comment: Janeth mated Glomerular Filtration Rate (eGFR) is calculated using the 2020 CKD-EPI creatinine equation. This equation utilizes serum creatinine, sex, and age as parameters. The creatinine assay has traceable calibration to isotope dilution-mass spectrometry. Refer to KDIGO guidelines for clinical interpretation. In patients with unstable renal function, e.g. those with acute kidney injury, the eGFR may not accurately reflect actual GFR. Performed By: #### 2 4323-8, ####[facility] LABCLIA [id number] [place] [address] [place] Glucose [Mass/Vol] 197 mg/dL High 74-99 [facility] Comment on above: Order Comment: Kanu sainz Type: BLOOD SPECIMENOrdering Facility: [facility] Address: [address] [place] [address] Result Comment: The [place] [employer] (ADA) provides guidance for cutoff values for fasting glucose and random glucose. The ADA defines fasting as no caloric intake for at least 8 hours. Fasting plasma glucose results between 100 to 125 mg/dL indicate increased risk for diabetes (prediabetes).Fasting plasma glucose results greater than or equal to 126 mg/dL meet the criteria for diagnosis of diabetes. In the absence of unequivocal hyperglycemia, results should be confirmed by repeat testing. In a patient with classic symptoms of hyperglycemia or hyperglycemic crisis, random plasma glucose results greater than or equal to 200 mg/dL meet the criteria for diagnosis of diabetes.Reference: Standards of Medical Care in Diabetes 2016, [place] [employer]. Diabetes Care. 2016.39(Suppl 1). Performed By: #### 2 4322-8, ####[facility] LABCLIA [id number] [address] [address] [place] Potassium [Moles/Vol] 4.7 mmol/L Normal 3.7-5.1 [facility] Comment on above: Order Comment: Speci men Type: BLOOD SPECIMENOrdering Facility: [facility] Address: [address] [place] [address] Performed By: #### 2 4323-07, ####[facility] LABCLIA [id number] [place] [address] [place] Protein [Mass/Vol] 8.2 g/dL High 6.3-8.0 [facility] Comment on above: Order Comment: Speci men Type: BLOOD SPECIMENOrdering Facility: [facility] Address: [address] [place] [address] Performed By: #### 2 4323-07, ####[facility] LABIA [id number] [place] [address] [place] Sodium [Moles/Vol] 132 mmol/L Low 136-144 [facility] Comment on above: Order Comment: Speci men Type: BLOOD SPECIMENOrdering Facility: [facility] Address: [address] [place] [address] Performed By: #### 2 4323-07, ####[facility] LABCLIA [id number] [place] [id number] [place] Urea nitrogen [Mass/Vol] 24 mg/dL Normal 9-24 [facility] Comment on above: Order Comment: Speci men Type: BLOOD SPECIMENOrdering Facility: [facility] Address: [address] [id number] Performed By: #### 2 4323-07, ####[facility] LABCLIA [id number] [place] [id number] [place] Magnesium SerPl-mCncon 09-10 Magnesium [Mass/Vol] 1.7 mg/dL Normal 1.7-2.3 [facility] Comment on above: Order Comment: Speci men Type: BLOOD SPECIMENOrdering Facility: [facility] Address: [address] [place] [address] Performed By: #### 2 4323-8, ####[facility] LABCLIA [id number] [address] [place] RETIC COUNTon 08-18-2023 Reticulocytes (Bld) [#/Vol] 0.25688 10*3/uL 0.018 - 0.100 M/uL [facility] Reticulocytes (Bld) [#/Vol]o n 08-18-2023 Reticulocytes/100 RBC (Bld) 2.6 % High 0.4 - 2.0 % [facility] Comprehensive metabolic 2000 panelon 08-07-2023 Albumin [Mass/Vol] 2.7 g/dL Low 3.9 - 4.9 g/dL [facility] ALP [Catalytic activity/Vol] 627 U/L High 38 - 113 U/L [facility] ALT With P-5'-P [Catalytic activity/Vol] 67 U/L High 10 - 54 U/L [facility] Anion gap [Moles/Vol] 6 mmol/L Low 9 - 18 mmol/L [facility] AST With P-5'-P [Catalytic activity/Vol] 87 U/L High 14 - 40 U/L [facility] Bilirubin [Mass/Vol] 1.3 mg/dL 0.2 - 1 .3 mg/dL [facility] Calcium [Mass/Vol] 9.0 mg/dL 8.5 - 10. 2 mg/dL [facility] Chloride [Moles/Vol] 101 mmol/L 97 - 10 5 mmol/L [facility] CO2 [Moles/Vol] 23 mmol/L 22 - 30 mmol/L [facility] Creatinine [Mass/Vol] 1.13 mg/dL 0.73 - 1.22 mg/dL [facility] Estimated Glomerular Filtration Rate 90 mL/min/1.73m >=60 mL/min/1.7 3m [facility] Glucose [Mass/Vol] 116 mg/dL High 74 - 99 mg/dL [facility] Potassium [Moles/Vol] 5.1 mmol/L 3.7 - 5.1 mmol/L [facility] Protein [Mass/Vol] 8.6 g/dL High 6.3 - 8.0 g/dL [facility] Sodium [Moles/Vol] 130 mmol/L Low 136 - 144 mmol/L [facility] Urea nitrogen [Mass/Vol] 23 mg/dL 9 - 24 mg/dL [facility] Respiratory pathogens DNA an d RNA 12b panel PABLO+probe (Unsp spec)on 07-02-2023 Adenovirus hexon gene PABLO+probe Ql (Nph) Not detected Not detected [facility] B. parapertussis DNA PABLO+probe Ql (Unsp spec) Not detected Not detected [facility] B. pertussis DNA PABLO+probe Ql (Unsp spec) Not detected Not detected [facility] C. pneumoniae DNA PABLO+probe Ql (Unsp spec) Not detected Not detected [facility] FLUAV RNA PABLO+probe Ql (Unsp spec) Not detected Not detected [facility] FLUBV RNA PABLO+probe Ql (Unsp spec) Not detected Not detected [facility] HCoV 229E+OC43 RNA PABLO+probe Ql (Nph) Not detected Not detected [facility] HCoV HKU1 RNA PABLO+probe Ql (Unsp spec) Not detected Not detected [facility] HCoV NL63 RNA PABLO+non-probe Ql (Nph) Not detected Not detected [facility] HCoV OC43 RNA PABLO+probe Ql (Unsp spec) Not detected Not detected [facility] hMPV RNA PABLO+probe Ql (Unsp spec) Not detected Not detected [facility] M. pneumoniae DNA PABLO+probe Ql (Unsp spec) Not detected Not detected [facility] Parainfluenza virus 1 RNA PABLO+probe Ql (Unsp spec) Not detected Not detected [facility] Parainfluenza virus 2 RNA PABLO+probe Ql (Unsp spec) Not detected Not detected [facility] Parainfluenza virus 3 RNA PABLO+probe Ql (Unsp spec) Not detected Not detected [facility] Parainfluenza virus 4 P gene PABLO+probe Ql (Nph) Not detected Not detected [facility] Rhinovirus 5' UTR RNA PABLO+probe Ql (Nph) Not detected Not detected [facility] RSV RNA PABLO+probe Ql (Upper resp) Not detected Not detected [facility] SARS-CoV-2 (COVID-19) RNA PABLO+probe Ql (Resp) Not detected See comment [facility] XR ABDOMEN 1V SUPINEon 07-02 [facility] XR ABDOMEN 1V SUPINEon 06-02 [facility] Respiratory pathogens DNA an d RNA 12b panel PABLO+probe (Unsp spec)on 03-19-2023 Adenovirus hexon gene PABLO+probe Ql (Nph) Not detected Not detected [facility] B. parapertussis DNA PABLO+probe Ql (Unsp spec) Not detected Not detected [facility] B. pertussis DNA PABLO+probe Ql (Unsp spec) Not detected Not detected [facility] C. pneumoniae DNA PABLO+probe Ql (Unsp spec) Not detected Not detected [facility] FLUAV RNA PABLO+probe Ql (Unsp spec) Not detected Not detected [facility] FLUBV RNA PABLO+probe Ql (Unsp spec) Not detected Not detected [facility] HCoV 229E+OC43 RNA PABLO+probe Ql (Nph) Not detected Not detected [facility] HCoV HKU1 RNA PABLO+probe Ql (Unsp spec) Not detected Not detected [facility] HCoV NL63 RNA PABLO+non-probe Ql (Nph) Not detected Not detected [facility] HCoV OC43 RNA PABLO+probe Ql (Unsp spec) Not detected Not detected [facility] hMPV RNA PABLO+probe Ql (Unsp spec) Not detected Not detected [facility] M. pneumoniae DNA PABLO+probe Ql (Unsp spec) Not detected Not detected [facility] Parainfluenza virus 1 RNA PABLO+probe Ql (Unsp spec) Not detected Not detected [facility] Parainfluenza virus 2 RNA PABLO+probe Ql (Unsp spec) Not detected Not detected [facility] Parainfluenza virus 3 RNA PABLO+probe Ql (Unsp spec) Detected Abnormal Not detected [facility] Parainfluenza virus 4 P gene PABLO+probe Ql (Nph) Not detected Not detected [facility] Rhinovirus 5' UTR RNA PABLO+probe Ql (Nph) Not detected Not detected [facility] RSV RNA PABLO+probe Ql (Upper resp) Not detected Not detected [facility] SARS-CoV-2 (COVID-19) RNA PABLO+probe Ql (Resp) Not detected See comment [facility] SPIROMETRY BASELINE ONLYon 0 03-05-2023 FRL71-21% PRE (L/S) 0.25 L/S [facility] FEV1 PRE (L) 0.86 L [facility] FEV1/FVC PRE (%) 35 % [facility] FVC PRE (L) 2.43 L [facility] PEF PRE (L/S) 3.95 L/S [facility] CBC W Auto Differential pane l (Bld)on 02-26-2023 Basophils (Bld) [#/Vol] 0.07 10*3/uL <0.11 k/uL [facility] Basophils/100 WBC (Bld) 1.5 % [facility] Differential cell count method Nom (Bld) Auto [facility] Eosinophils (Bld) [#/Vol] 0.17 10*3/uL <0.46 k/uL [facility] Eosinophils/100 WBC (Bld) 3.7 % [facility] Erythrocyte distribution width (RBC) [Ratio] 13.7 % 11.5 - 15.0 % [facility] Hematocrit (Bld) [Volume fraction] 38.6 % Low 39.0 - 51.0 % [facility] Hemoglobin (Bld) [Mass/Vol] 13.3 g/dL 13.0 - 17.0 g/dL [facility] Immature granulocytes (Bld) [#/Vol] <0.10 k/uL [facility] Immature granulocytes/100 WBC (Bld) 0.4 % [facility] Lymphocytes (Bld) [#/Vol] 0.97 10*3/uL Low 1.00 - 4.00 k/uL [facility] Lymphocytes/100 WBC (Bld) 21.0 % [facility] MCH (RBC) [Entitic mass] 31.5 pg 26.0 - 34.0 pg [facility] MCHC (RBC) [Mass/Vol] 34.5 g/dL 30.5 - 36.0 g/dL [facility] MCV (RBC) [Entitic vol] 91.5 fL 80.0 - 100.0 fL [facility] Monocytes (Bld) [#/Vol] 0.36 10*3/uL <0.87 k/uL [facility] Monocytes/100 WBC (Bld) 7.8 % [facility] Neutrophils (Bld) [#/Vol] 3.03 10*3/uL 1.45 - 7.50 k/uL [facility] Neutrophils/100 WBC (Bld) 65.6 % [facility] Nucleated RBC (Bld) [#/Vol] <0.01 k/uL [facility] Nucleated RBC/100 WBC (Bld) [Ratio] 0.0 /100 WBC [facility] Platelet mean volume (Bld) [Entitic vol] 9.5 fL 9.0 - 12.7 fL [facility] Platelets (Bld) [#/Vol] 241 10*3/uL 150 - 400 k/uL [facility] RBC (Bld) [#/Vol] 4.22 10*6/uL 4.20 - 6.00 m/uL [facility] WBC (Bld) [#/Vol] 4.62 10*3/uL 3.70 - 11.00 k/uL [facility] PT panel Coag (PPP)on 2022 INR Coag (PPP) [Relative time] 1.3 {INR} 0.9 - 1.3 [facility] PT Coag (PPP) [Time] 13.5 s High 9.7 - 1 3.0 sec [facility] Comprehensive metabolic 2000 panelon 12-04-2022 Albumin [Mass/Vol] 3.1 g/dL Low 3.9 - 4.9 g/dL [facility] ALP [Catalytic activity/Vol] 992 U/L High 38 - 113 U/L [facility] ALT [Catalytic activity/Vol] 131 U/L High 10 - 54 U/L [facility] Anion gap [Moles/Vol] 6 mmol/L Low 9 - 18 mmol/L [facility] AST [Catalytic activity/Vol] 140 U/L High 14 - 40 U/L [facility] Bilirubin [Mass/Vol] 1.4 mg/dL High 0.2 - 1 .3 mg/dL [facility] Calcium [Mass/Vol] 9.1 mg/dL 8.5 - 10. 2 mg/dL [facility] Chloride [Moles/Vol] 96 mmol/L Low 97 - 10 5 mmol/L [facility] CO2 [Moles/Vol] 32 mmol/L High 22 - 30 mmol/L [facility] Creatinine [Mass/Vol] 0.78 mg/dL 0.73 - 1.22 mg/dL [facility] Estimated Glomerular Filtration Rate 124 mL/min/1.73m >=60 mL/min/1.7 3m [facility] Glucose [Mass/Vol] 195 mg/dL High 74 - 99 mg/dL [facility] Potassium [Moles/Vol] 4.1 mmol/L 3.7 - 5.1 mmol/L [facility] Protein [Mass/Vol] 7.7 g/dL 6.3 - 8.0 g/dL [facility] Sodium [Moles/Vol] 134 mmol/L Low 136 - 144 mmol/L [facility] Urea nitrogen [Mass/Vol] 13 mg/dL 9 - 24 mg/dL [facility] MAGNESIUM BLDon 12-04-2022 Magnesium [Mass/Vol] 1.6 mg/dL Low 1.7 - 2 .3 mg/dL [facility] CBC W Auto Differential pane l (Bld)on 12-03-2022 Basophils (Bld) [#/Vol] 0.07 10*3/uL <0.11 k/uL [facility] Basophils/100 WBC (Bld) 0.7 % [facility] Differential cell count method Nom (Bld) Auto [facility] Eosinophils (Bld) [#/Vol] 1.54 10*3/uL High <0.46 k/uL [facility] Eosinophils/100 WBC (Bld) 15.0 % [facility] Erythrocyte distribution width (RBC) [Ratio] 13.9 % 11.5 - 15.0 % [facility] Hematocrit (Bld) [Volume fraction] 34.0 % Low 39.0 - 51.0 % [facility] Hemoglobin (Bld) [Mass/Vol] 11.9 g/dL Low 13.0 - 17.0 g/dL [facility] Immature granulocytes (Bld) [#/Vol] 0.03 10*3/uL <0.10 k/uL [facility] Immature granulocytes/100 WBC (Bld) 0.3 % [facility] Lymphocytes (Bld) [#/Vol] 3.60 10*3/uL 1.00 - 4.00 k/uL [facility] Lymphocytes/100 WBC (Bld) 35.0 % [facility] MCH (RBC) [Entitic mass] 31.3 pg 26.0 - 34.0 pg [facility] MCHC (RBC) [Mass/Vol] 35.0 g/dL 30.5 - 36.0 g/dL [facility] MCV (RBC) [Entitic vol] 89.5 fL 80.0 - 100.0 fL [facility] Monocytes (Bld) [#/Vol] 0.98 10*3/uL High <0.87 k/uL [facility] Monocytes/100 WBC (Bld) 9.5 % [facility] Neutrophils (Bld) [#/Vol] 4.08 10*3/uL 1.45 - 7.50 k/uL [facility] Neutrophils/100 WBC (Bld) 39.5 % [facility] Nucleated RBC (Bld) [#/Vol] <0.01 k/uL [facility] Nucleated RBC/100 WBC (Bld) [Ratio] 0.0 /100 WBC [facility] Platelet mean volume (Bld) [Entitic vol] 9.7 fL 9.0 - 12.7 fL [facility] Platelets (Bld) [#/Vol] 214 10*3/uL 150 - 400 k/uL [facility] RBC (Bld) [#/Vol] 3.80 10*6/uL Low 4.20 - 6.00 m/uL [facility] WBC (Bld) [#/Vol] 10.30 10*3/uL 3.70 - 11.00 k/uL [facility] VANCOMYCINon 12-03-2022 Vancomycin random [Mass/Vol] Low 10.0 - 20.0 ug/mL [facility] VANCOMYCINon 11-28-2022 Vancomycin random [Mass/Vol] 5.3 ug/mL Low 10.0 - 20.0 ug/mL [facility] BILIRUBIN TOTAL BLDon 2021 Bilirubin [Mass/Vol] 0.80 mg/dL 0.2 - 1 [facility] CBC W Auto Differential pane l (Bld)on 11-26-2022 Abs Neut (ANC) 2.3 K/uL 2 - 7.7 K/uL [facility] Eosinophils/100 WBC (Bld) 16.6 % Abnormal 0 - 5 [facility] Hematocrit (Bld) [Volume fraction] 30.8 % Abnormal 40 - 54 % [facility] Hemoglobin (Bld) [Mass/Vol] 10.2 g/dL Abnormal 13 - 16.5 g/dL [facility] Neutrophils/100 WBC (Bld) 47.2 % 47 - 70 [facility] Platelets (Bld) [#/Vol] 196 10*3/uL 150 - 450 K/uL [facility] WBC (Bld) [#/Vol] 4.9 10*3/uL 4.4 - 11.0 K/uL [facility] Comprehensive metabolic 2000 panelon 11-26-2022 ALP [Catalytic activity/Vol] 1147 U/L Abnormal 45 - 117 [facility] ALT [Catalytic activity/Vol] 145 U/L Abnormal 16 - 61 [facility] AST [Catalytic activity/Vol] 145 U/L Abnormal 15 - 37 [facility] Creatinine [Mass/Vol] 1.16 mg/dL 0.7 - 1.3 MG/DL [facility] Potassium [Moles/Vol] 4.4 mmol/L 3.5 - 5.1 [facility] Magnesium [Mass/Vol]on 11-26 Magnesium.plasma/Magn esium.RBC (Bld) [Molar ratio] 1.8 1.6 - 2.6 [facility] SPIROMETRY BASELINE ONLYon 1 01-21-2022 HVI99-72% PRE (L/S) 0.22 L/S [facility] FEV1 PRE (L) 0.82 L [facility] FEV1/FVC PRE (%) 35 % [facility] FVC PRE (L) 2.34 L [facility] PEF PRE (L/S) 3.81 L/S [facility] CBC W Auto Differential pane l (Bld)on 08-06-2022 Abs Neut (ANC) 4.8 K/uL 2 - 7.7 K/uL [facility] Eosinophils/100 WBC (Bld) 7.9 % Abnormal 0 - 5 [facility] Hematocrit (Bld) [Volume fraction] 34.3 % Abnormal 40 - 54 % [facility] Hemoglobin (Bld) [Mass/Vol] 11.5 g/dL Abnormal 13 - 16.5 g/dL [facility] Neutrophils/100 WBC (Bld) 57.5 % 47 - 70 [facility] Platelets (Bld) [#/Vol] 422 10*3/uL 150 - 450 K/uL [facility] WBC (Bld) [#/Vol] 8.4 10*3/uL 4.4 - 11.0 K/uL [facility] VANCOMYCIN PRE DOSEon 2021 Vancomycin Pre 19.5 Abnormal 5 - 15 [facility] No Panel Informationon 07-25 [facility] C-REACTIVE PROTEIN (CRP)on 0 07-18-2022 CRP [Mass/Vol] 1.7 mg/dL High <0.9 mg/dL [facility] Comprehensive metabolic 2000 panelon 07-18-2022 Albumin [Mass/Vol] 2.8 g/dL Low 3.9 - 4.9 g/dL [facility] ALP [Catalytic activity/Vol] 1169 U/L High 38 - 113 U/L [facility] ALT [Catalytic activity/Vol] 20 U/L 10 - 54 U/L [facility] Anion gap [Moles/Vol] 7 mmol/L Low 9 - 18 mmol/L [facility] AST [Catalytic activity/Vol] 35 U/L 14 - 40 U/L [facility] Bilirubin [Mass/Vol] 1.0 mg/dL 0.2 - 1 .3 mg/dL [facility] Calcium [Mass/Vol] 8.7 mg/dL 8.5 - 10. 2 mg/dL [facility] Chloride [Moles/Vol] 95 mmol/L Low 97 - 10 5 mmol/L [facility] CO2 [Moles/Vol] 30 mmol/L 22 - 30 mmol/L [facility] Creatinine [Mass/Vol] 0.65 mg/dL Low 0.73 - 1.22 mg/dL [facility] Estimated Glomerular Filtration Rate 131 mL/min/1.73m >=60 mL/min/1.7 3m [facility] Glucose [Mass/Vol] 197 mg/dL High 74 - 99 mg/dL [facility] Potassium [Moles/Vol] 4.3 mmol/L 3.7 - 5.1 mmol/L [facility] Protein [Mass/Vol] 8.5 g/dL High 6.3 - 8.0 g/dL [facility] Sodium [Moles/Vol] 132 mmol/L Low 136 - 144 mmol/L [facility] Urea nitrogen [Mass/Vol] 12 mg/dL 9 - 24 mg/dL [facility] GGT BLDon 07-18-2022 Gamma glutamyl transferase [Catalytic activity/Vol] 1363 U/L High 10 - 70 U/L [facility] IGE BLDon 07-18-2022 IgE Qn 27.0 kU/l <114.0 kU/l [facility] CBC W Auto Differential pane l (Bld)on 2022 Abs Immature Gran <0.10 k/uL [facility] Basophils (Bld) [#/Vol] 0.07 10*3/uL <0.11 k/uL [facility] Basophils/100 WBC (Bld) 1.0 % [facility] Differential cell count method Nom (Bld) Auto [facility] Eosinophils (Bld) [#/Vol] 0.10 10*3/uL <0.46 k/uL [facility] Eosinophils/100 WBC (Bld) 1.4 % [facility] Erythrocyte distribution width (RBC) [Ratio] 13.2 % 11.5 - 15.0 % [facility] Hematocrit (Bld) [Volume fraction] 39.0 % 39.0 - 51.0 % [facility] Hemoglobin (Bld) [Mass/Vol] 12.8 g/dL Low 13.0 - 17.0 g/dL [facility] Immature Gran % 0.3 % [facility] Lymphocytes (Bld) [#/Vol] 0.91 10*3/uL Low 1.00 - 4.00 k/uL [facility] Lymphocytes/100 WBC (Bld) 12.6 % [facility] MCH (RBC) [Entitic mass] 31.0 pg 26.0 - 34.0 pg [facility] MCHC (RBC) [Mass/Vol] 32.8 g/dL 30.5 - 36.0 g/dL [facility] MCV (RBC) [Entitic vol] 94.4 fL 80.0 - 100.0 fL [facility] Monocytes (Bld) [#/Vol] 0.39 10*3/uL <0.87 k/uL [facility] Monocytes/100 WBC (Bld) 5.4 % [facility] Neutrophils (Bld) [#/Vol] 5.75 10*3/uL 1.45 - 7.50 k/uL [facility] Neutrophils/100 WBC (Bld) 79.3 % [facility] Nucleated RBC (Bld) [#/Vol] <0.01 k/uL [facility] Nucleated RBC/100 WBC (Bld) [Ratio] 0.0 /100 WBC [facility] Platelet mean volume (Bld) [Entitic vol] 9.2 fL 9.0 - 12.7 fL [facility] Platelets (Bld) [#/Vol] 232 10*3/uL 150 - 400 k/uL [facility] RBC (Bld) [#/Vol] 4.13 10*6/uL Low 4.20 - 6.00 m/uL [facility] WBC (Bld) [#/Vol] 7.24 10*3/uL 3.70 - 11.00 k/uL [facility] HbA1c (Bld)on 2022 Average glucose Estimated from glycated hemoglobin (Bld) [Mass/Vol] 200 mg/dL [facility] HbA1c (Bld) [Mass fraction] 8.6 % High 4.3 - 5.6 % [facility] PT panel Coag (PPP)on 2021 INR Coag (PPP) [Relative time] 1.1 {INR} 0.9 - 1.3 [facility] PT Coag (PPP) [Time] 11.9 s 9.7 - 1 3.0 sec [facility] VITAMIN D 25 HYDROXYon 07-17 25-hydroxyvitamin D3 [Mass/Vol] 14.7 ng/mL Low 31.0 - 80.0 ng/mL [facility] .GFRon 05-14-2022 GFR >60 Normal [facility] ([place]) Comment on above: Result Comment: GFR Population mean for , Non- Americans Ages 20-29 = 116 mL/min/1.73 sq.m. Ages 30-39 = 107 mL/min/1.73 sq.m. Ages 40-49 = 99 mL/min/1.73 sq.m. Ages 50-59 = 93 mL/min/1.73 sq.m. Ages 60-69 = 85 mL/min/1.73 sq.m. Ages 70+ = 75 mL/min/1.73 sq.m. Chronic Kidney Disease: Less than 60 mL/min/1.73 square meters End Stage Renal Disease: Less than 15 mL/min/1.73 square meters Performed By: #### G FR, CMP #### [place] [address] GFR Non- >60 Normal [facility] ([place]) Comment on above: Result Comment: GFR Population mean for , Non- Americans Ages 20-29 = 116 mL/min/1.73 sq.m. Ages 30-39 = 107 mL/min/1.73 sq.m. Ages 40-49 = 99 mL/min/1.73 sq.m. Ages 50-59 = 93 mL/min/1.73 sq.m. Ages 60-69 = 85 mL/min/1.73 sq.m. Ages 70+ = 75 mL/min/1.73 sq.m. Chronic Kidney Disease: Less than 60 mL/min/1.73 square meters End Stage Renal Disease: Less than 15 mL/min/1.73 square meters Performed By: #### Susan KAUR, CMP #### [address] [address] [facility] 05-14-2022 Albumin Level 1.9 G/dL Low 3.2-4.8 [facility] ([place]) Comment on above: Performed By: #### Susan KAUR, CMP #### [address] [address] Albumin/Globulin [Mass ratio] 0.5 {ratio} Low 0.9-1.6 [facility] ([place]) Comment on above: Performed By: #### Susan KAUR, CMP #### [address] [address] ALP [Catalytic activity/Vol] 881 U/L High 38-126 [facility] ([place] Comment on above: Performed By: #### Susan KAUR, CMP #### [address] [address] ALT [Catalytic activity/Vol] 64 U/L High 12-55 [facility] ([place] Comment on above: Performed By: #### Susan KAUR, CMP #### [address] [address] AST [Catalytic activity/Vol] 182 U/L High 8-34 [facility] ([place] Comment on above: Performed By: #### Susan KAUR, CMP #### [address] [address] Bili Total 1.30 mg/dL High 0.20-1.20 [facility] ([place]) Comment on above: Result Comment: Use of this assay is not recommended for patients undergoing treatment with eltrombopag due to the potential for falsely elevated results. Performed By: #### Susan KAUR, CMP #### [place] [id number] BUN/Creatinine Ratio 22.1 ratio High 10.0-22.0 [facility] ([place] Comment on above: Performed By: #### Susan KAUR, CMP #### [place] [id number] Calcium [Mass/Vol] 7.6 mg/dL Low 8.7-10.4 [facility] ([place]) Comment on above: Performed By: #### Susan KAUR, CMP #### [place] [id number] Chloride [Moles/Vol] 107 mmol/L Normal 98-110 [facility] ([place] Comment on above: Performed By: #### Susan KAUR, CMP #### [place] [phone] CO2 [Moles/Vol] 26 mmol/L Normal 22-32 [facility] ([place] Comment on above: Performed By: #### Susan KAUR, CMP #### [place] [phone] Creatinine [Mass/Vol] 0.68 mg/dL Normal 0.60-1.40 [facility] [place] Comment on above: Performed By: #### Susan KAUR, CMP #### [place] [id number] Electrolyte Balance 0.0 mEq/L Low 4.0-15.0 [facility] ([place]) Comment on above: Performed By: #### Susan KAUR, CMP #### [place] [id number] Globulin 3.8 G/dL Normal 1.5-3.8 [facility] ([place] Comment on above: Performed By: #### Susan KAUR, CMP #### [place] [phone] Glucose [Mass/Vol] 226 mg/dL High 70-110 [facility] ([place] Comment on above: Performed By: #### G FR, CMP #### [address] [address] Potassium [Moles/Vol] 4.1 mmol/L Normal 3.5-5.0 [facility] [place] Comment on above: Performed By: #### G , CMP #### [address] [address] Sodium [Moles/Vol] 133 mmol/L Low 136-145 [facility] ([place] Comment on above: Performed By: #### G , CMP #### [address] [address] Total Protein 5.7 G/dL Normal 5.7-8.2 [facility] ([place] Comment on above: Result Comment: No te - New Reference Range in effect 20 Performed By: #### G , CMP #### [address] [address] Urea nitrogen [Mass/Vol] 15.0 mg/dL Normal 8.0-22.0 [facility] ([place]) Comment on above: Performed By: #### G , CMP #### [address] [address] Glucose by meteron 2 Glucose [Mass/Vol] 190 mg/dL High 70 - 99 mg/dL [facility] Comment on above: Bedside glucose is a screening procedure. The bedside glucose strip is calibrated to deliver plasma glucose levels. Glucose meter values <45 mg/dl and >450 mg/dl must be confirmed with a plasma or whole blood glucose performed in the lab. Whole blood glucose results are 10-15% lower than plasma glucose results. Interpretation and review of laboratory results Abnormal [facility] Glucose [Mass/Vol] 130 mg/dL High 70 - 99 mg/dL [facility] Comment on above: Bedside glucose is a screening procedure. The bedside glucose strip is calibrated to deliver plasma glucose levels. Glucose meter values <45 mg/dl and >450 mg/dl must be confirmed with a plasma or whole blood glucose performed in the lab. Whole blood glucose results are 10-15% lower than plasma glucose results. Interpretation and review of laboratory results Abnormal [facility] Glucose [Mass/Vol] 87 mg/dL 70 - 99 mg/dL [facility] Comment on above: Bedside glucose is a screening procedure. The bedside glucose strip is calibrated to deliver plasma glucose levels. Glucose meter values <45 mg/dl and >450 mg/dl must be confirmed with a plasma or whole blood glucose performed in the lab. Whole blood glucose results are 10-15% lower than plasma glucose results. [facility] LABORATORYOrdered By: SYSTEM SYSTEM on 05-14-2022 Albumin BCP dye [Mass/Vol] 1.9 G/dL Invalid Interpretation Code 3.2 - 4.8 G/dL ADM SS Albumin/Globulin [Mass ratio] 0.5 {ratio} Invalid Interpretation Code 0.9 - 1.6 ratio ADM SS ALP [Catalytic activity/Vol] 881 U/L Invalid Interpretation Code 38 - 126 U/L ADM SS ALT No additional P-5'-P [Catalytic activity/Vol] 64 U/L Invalid Interpretation Code 12 - 55 U/L ADM SS AST [Catalytic activity/Vol] 182 U/L Invalid Interpretation Code 8 - 34 U/L ADM SS Bilirubin [Mass/Vol] 1.30 mg/dL Invalid Interpretation Code 0.20 - 1.20 mg/dL ADM SS Calcium [Mass/Vol] 7.6 mg/dL Invalid Interpretation Code 8.7 - 10.4 mg/dL ADM SS Chloride [Moles/Vol] 107 mmol/L Invalid Interpretation Code 98 - 110 mEq/L ADM SS CO2 [Moles/Vol] 26 mmol/L Invalid Interpretation Code 22 - 32 mEq/L ADM SS Creatinine [Mass/Vol] 0.68 mg/dL Invalid Interpretation Code 0.60 - 1.40 mg/dL ADM SS Electrolyte Balance 0.0 mEq/L Invalid Interpretation Code 4.0 - 15.0 mEq/L ADM SS GFR/1.73 sq M.predicted among blacks MDRD (S/P/Bld) [Vol rate/Area] ml/min/1.73sqm Invalid Interpretation Code Chemistry S GFR/1.73 sq M.predicted among non-blacks MDRD (S/P/Bld) [Vol rate/Area] ml/min/1.73sqm Invalid Interpretation Code Chemistry S Globulin 3.8 G/dL Invalid Interpretation Code 1.5 - 3.8 G/dL AH ADM SS Glucose [Mass/Vol] 226 mg/dL Invalid Interpretation Code 70 - 110 mg/dL AH ADM SS Potassium [Moles/Vol] 4.1 mmol/L Invalid Interpretation Code 3.5 - 5.0 mEq/L AH ADM SS Protein [Mass/Vol] 5.7 G/dL Invalid Interpretation Code 5.7 - 8.2 G/dL AH ADM SS Sodium [Moles/Vol] 133 mmol/L Invalid Interpretation Code 136 - 145 mEq/L ADM SS Urea nitrogen [Mass/Vol] 15.0 mg/dL Invalid Interpretation Code 8.0 - 22.0 mg/dL ADM SS Urea nitrogen/Creatinine [Mass ratio] 22.1 ratio Invalid Interpretation Code 10.0 - 22.0 ratio AH ADM SS .Auto Diffon 05-13-2022 Basophil, Absolute 0.0 10 3/mcL Normal 0.0-0.3 [facility] ([place]) Basophils/100 WBC (Bld) 0.2 % Normal 0.0-2.5 [facility] ([place]) Eosinophil, Absolute 0.1 10 3/mcL Normal 0.0-0.7 [facility] ([place]) Eosinophils/100 WBC (Bld) 2.2 % Normal 0.0-6.0 [facility] ([place]) Lymphocyte, Absolute 0.8 10 3/mcL Low 0.9-4.3 [facility] ([place] Lymphocytes/100 WBC (Bld) 12.2 % Low 20.0-40.0 [facility] ([place]) Monocyte, Absolute 0.5 10 3/mcL Normal 0.1-1.4 [facility] ([place] Monocytes/100 WBC (Bld) 7.5 % Normal 2.0-13.0 [facility] ([place] Neutrophils/100 WBC (Bld) 77.9 % High 50.0-75.0 [facility] ([place]) .MDWon 05-13-2022 Monocyte Distribution Width Not performed Normal 0.00-20.00 [facility] ([place]) Comment on above: Result Comment: MDW testing performed only on adult ER patients between the ages of 18-89 years. .NEUABSon 05-13-2022 Neutrophil, Absolute 5.3 10 3/mcL Normal 2.3-8.1 [facility]) CBCon 05-13-2022 Erythrocyte distribution width (RBC) [Ratio] 12.9 % Normal 11.5-15.5 [facility]) Hematocrit (Bld) [Volume fraction] 36.3 % Low 40.0-52.0 [facility]) Hgb 12.8 G/dL Low 13.0-17.5 [facility]) MCH (RBC) [Entitic mass] 32.4 pg Normal 27.0-33.0 [facility]) MCHC 35.3 G/dL Normal 32.0-36.0 [facility]) MCV (RBC) [Entitic vol] 92.0 fL Normal 81.0-100.0 [facility]) Platelet 183 10 3/mcL Normal 150-450 [facility]) Platelet mean volume (Bld) [Entitic vol] 6.9 fL Normal 6.4-10.5 [facility]) RBC 3.95 10 6/mcL Low 4.50-6.00 [facility]) WBC 6.9 10 3/mcL Normal 4.5-10.8 [facility]) EKG 12 leadon 05-13-2022 [facility] Test Date: 2022-05-12 Pat Name: JAY BARBER Department: ED Room: 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1995 Requested By: KINDRA Order Number: [id number] [place] MD: Nitin Best MD Measurements Intervals [place] Rate: 126 P: 76 [place]: 143 QRS: 91 QRSD: 93 T: 52 QT: 318 QTc: 461 Interpretive Statements Sinus tachycardia Borderline right axis deviation Possible LVH Artifact ICD: I49.9 Cardiac Arrhythmia, unspecified Electronically Signed On 05-13-2022 9:53:55 EDT by Nitin Best MD PDF RESULT Nitin Best MD - [facility] Test Date: 2022-05-12 Pat Name: JAY BARBER Department: ED Room: 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: [id number] : 1995 Requested By: KINDRA Order Number: [id number] [place] MD: Nitin Best MD Measurements Intervals [place] Rate: 126 P: 76 [place]: 143 QRS: 91 QRSD: 93 T: 52 QT: 318 QTc: 461 Interpretive Statements Sinus tachycardia Borderline right axis deviation Possible LVH Artifact ICD: I49.9 Cardiac Arrhythmia, unspecified Electronically Signed On 05-13-2022 9:53:55 EDT by Nitin Best MD [facility] EKG 12 leadOrdered By: Nitin Best on 05-13-2022 [facility] Work Phone: Glucose by meteron 2 Glucose [Mass/Vol] 166 mg/dL High 70 - 99 mg/dL [facility] Comment on above: Bedside glucose is a screening procedure. The bedside glucose strip is calibrated to deliver plasma glucose levels. Glucose meter values <45 mg/dl and >450 mg/dl must be confirmed with a plasma or whole blood glucose performed in the lab. Whole blood glucose results are 10-15% lower than plasma glucose results. Interpretation and review of laboratory results Abnormal [facility] Glucose [Mass/Vol] 209 mg/dL High 70 - 99 mg/dL [facility] Comment on above: Bedside glucose is a screening procedure. The bedside glucose strip is calibrated to deliver plasma glucose levels. Glucose meter values <45 mg/dl and >450 mg/dl must be confirmed with a plasma or whole blood glucose performed in the lab. Whole blood glucose results are 10-15% lower than plasma glucose results. Interpretation and review of laboratory results Abnormal [facility] Glucose [Mass/Vol] 177 mg/dL High 70 - 99 mg/dL [facility] Comment on above: Bedside glucose is a screening procedure. The bedside glucose strip is calibrated to deliver plasma glucose levels. Glucose meter values <45 mg/dl and >450 mg/dl must be confirmed with a plasma or whole blood glucose performed in the lab. Whole blood glucose results are 10-15% lower than plasma glucose results. Interpretation and review of laboratory results Abnormal [facility] Glucose [Mass/Vol] 79 mg/dL 70 - 99 mg/dL [facility] Comment on above: Bedside glucose is a screening procedure. The bedside glucose strip is calibrated to deliver plasma glucose levels. Glucose meter values <45 mg/dl and >450 mg/dl must be confirmed with a plasma or whole blood glucose performed in the lab. Whole blood glucose results are 10-15% lower than plasma glucose results. [facility] Glucose [Mass/Vol] 104 mg/dL High 70 - 99 mg/dL [facility] Comment on above: Bedside glucose is a screening procedure. The bedside glucose strip is calibrated to deliver plasma glucose levels. Glucose meter values <45 mg/dl and >450 mg/dl must be confirmed with a plasma or whole blood glucose performed in the lab. Whole blood glucose results are 10-15% lower than plasma glucose results. Interpretation and review of laboratory results Abnormal [facility] LABORATORYOrdered By: Nikkie Benítez on 05-13-2022 Appearance (U) Clear (05/13/22 8:53 AM) Invalid Interpretation Code Clear Auto Urine SS Bilirubin Ql (U) Negative (05/13/22 8:53 AM) Invalid Interpretation Code Neg-Trace Auto Urine SS Color (U) Straw (05/13/22 8:53 AM) Invalid Interpretation Code AH Auto Urine SS Glucose Test strip (U) [Mass/Vol] Negative Invalid Interpretation Code Negativemg /dL Auto Urine SS Hemoglobin Auto test strip (U) [Mass/Vol] Trace (05/13/22 8:53 AM) Invalid Interpretation Code Neg-Trace AH Auto Urine SS Ketones Ql (U) Trace mg/dL Invalid Interpretation Code Neg-Tracem g/dL Auto Urine SS UA Leuk Est Negative (05/13/22 8:53 AM) Invalid Interpretation Code Negative Auto Urine SS UA Nitrite Negative (05/13/22 8:53 AM) Invalid Interpretation Code Negative Auto Urine SS UA pH 6.0 (05/13/22 8:53 AM) Invalid Interpretation Code 5.0 - 8.0 AH Auto Urine SS UA Protein 30 mg/dL Invalid Interpretation Code Negativemg /dL AH Auto Urine SS UA Spec Grav 1.015 (05/13/22 8:53 AM) Invalid Interpretation Code 1.006-1.02 9 Auto Urine UA Specimen Type Clean Catch (05/13/22 8:53 AM) Invalid Interpretation Code Auto Urine UA Urobilinogen 0.2 E.U./dL Invalid Interpretation Code 0.2-1.0E.U ./dL Auto Urine SS LABORATORYOrdered By: SYSTEM SYSTEM on 05-13-2022 Basophils (Bld) [#/Vol] 0.0 103/mcL Invalid Interpretation Code 0.0 - 0.3 10^3/mcL Workflow SS Basophils/100 WBC (Bld) 0.2 % Invalid Interpretation Code 0.0 - 2.5 % Workflow SS Eosinophil, Absolute 0.1 103/mcL Invalid Interpretation Code 0.0 - 0.7 10^3/mcL Workflow SS Eosinophils/100 WBC (Bld) 2.2 % Invalid Interpretation Code 0.0 - 6.0 % Workflow SS Erythrocyte distribution width (RBC) [Ratio] 12.9 % Invalid Interpretation Code 11.5 - 15.5 % Workflow SS Hematocrit (Bld) [Volume fraction] 36.3 % Invalid Interpretation Code 40.0 - 52.0 % Workflow SS Hgb 12.8 G/dL Invalid Interpretation Code 13.0 - 17.5 G/dL Workflow SS Lymphocyte, Absolute 0.8 103/mcL Invalid Interpretation Code 0.9 - 4.3 10^3/mcL Workflow SS Lymphocytes/100 WBC (Bld) 12.2 % Invalid Interpretation Code 20.0 - 40.0 % Workflow SS MCH (RBC) [Entitic mass] 32.4 pg Invalid Interpretation Code 27.0 - 33.0 pg Workflow SS MCHC 35.3 G/dL Invalid Interpretation Code 32.0 - 36.0 G/dL Workflow SS MCV (RBC) [Entitic vol] 92.0 fL Invalid Interpretation Code 81.0 - 100.0 fL Workflow SS Monocyte distribution width Auto (Bld) [Entitic vol] Not Performed 1 *NA* (05/13/22 6:48 AM) Invalid Interpretation Code 0.00 - 20.00 Hematology S Comment on above: Result Comment: MDW testing performed only on adult ER patients between the ages of 18-89 years. Monocyte, Absolute 0.5 103/mcL Invalid Interpretation Code 0.1 - 1.4 10^3/mcL Workflow SS Monocytes/100 WBC (Bld) 7.5 % Invalid Interpretation Code 2.0 - 13.0 % Workflow SS Neutrophil, Absolute 5.3 103/mcL Invalid Interpretation Code 2.3 - 8.1 10^3/mcL Workflow SS Neutrophils/100 WBC (Bld) 77.9 % Invalid Interpretation Code 50.0 - 75.0 % Workflow SS Platelet 183 103/mcL Invalid Interpretation Code 150 - 450 10^3/mcL Workflow SS Platelet mean volume (Bld) [Entitic vol] 6.9 fL Invalid Interpretation Code 6.4 - 10.5 fL Workflow SS RBC 3.95 106/mcL Invalid Interpretation Code 4.50 - 6.00 10^6/mcL Workflow SS WBC 6.9 103/mcL Invalid Interpretation Code 4.5 - 10.8 10^3/mcL Workflow SS UAon 05-13-2022 Color (U) Straw Normal [facility] ([place]) Comment on above: Performed By: #### U A #### [place] [address] Glucose (U) [Mass/Vol] Negative Normal Negative [facility] ([place]) Comment on above: Performed By: #### U A #### [address] [address] Ketones Ql (U) Trace Normal Neg-Trace [facility] ([place]) Comment on above: Performed By: #### U A #### [address] [address] UA Appear Clear Normal Clear [facility] ([place]) Comment on above: Performed By: #### U A #### [address] [address] UA Blood Trace Normal Neg-Trace [facility] ([place]) Comment on above: Performed By: #### U A #### [address] [address] UA Leuk Est Negative Normal Negative [facility] ([place]) Comment on above: Performed By: #### U A #### [address] [address] UA Nitrite Negative Normal Negative [facility] ([place] Comment on above: Performed By: #### U A #### [address] [address] UA pH 6.0 Normal 5.0 - 8.0 [facility] ([place]) Comment on above: Performed By: #### U A #### [address] [address] UA Protein 30 mg/dL Normal Negative [facility] ([place] Comment on above: Performed By: #### U A #### [address] [address] UA Spec Grav 1.015 Normal 1.006-1.02 9 [facility] ([place]) Comment on above: Performed By: #### U A #### [address] [address] UA Specimen Type Clean Catch Normal [facility] ([place]) Comment on above: Performed By: #### U A #### [address] [address] UA Urobilinogen 0.2 E.U./dL Normal 0.2-1.0 [facility] ([place]) Comment on above: Performed By: #### U A #### [address] [address] Urobilinogen (U) [Mass/Vol] Negative Normal Neg-Trace [facility] ([place] Comment on above: Performed By: #### U A #### [address] [address] .GFRon 05-12-2022 GFR >60 Normal [facility] ([place]) Comment on above: Result Comment: GFR Population mean for , Non- Americans Ages 20-29 = 116 mL/min/1.73 sq.m. Ages 30-39 = 107 mL/min/1.73 sq.m. Ages 40-49 = 99 mL/min/1.73 sq.m. Ages 50-59 = 93 mL/min/1.73 sq.m. Ages 60-69 = 85 mL/min/1.73 sq.m. Ages 70+ = 75 mL/min/1.73 sq.m. Chronic Kidney Disease: Less than 60 mL/min/1.73 square meters End Stage Renal Disease: Less than 15 mL/min/1.73 square meters Performed By: #### Susan KAUR, CMP ####[address] [address] GFR Non- 55 ml/min/1.73sqm Normal [facility] ([place]) Comment on above: Result Comment: GFR Population mean for , Non- Americans Ages 20-29 = 116 mL/min/1.73 sq.m. Ages 30-39 = 107 mL/min/1.73 sq.m. Ages 40-49 = 99 mL/min/1.73 sq.m. Ages 50-59 = 93 mL/min/1.73 sq.m. Ages 60-69 = 85 mL/min/1.73 sq.m. Ages 70+ = 75 mL/min/1.73 sq.m. Chronic Kidney Disease: Less than 60 mL/min/1.73 square meters End Stage Renal Disease: Less than 15 mL/min/1.73 square meters Performed By: #### Susan KAUR, CMP ####[address] [address] CMPon 05-12-2022 Albumin Level 2.5 G/dL Low 3.2-4.8 [facility] ([place]) Comment on above: Performed By: #### Susan KAUR, CMP #### [address] [address] Albumin/Globulin [Mass ratio] 0.5 {ratio} Low 0.9-1.6 [facility] ([place]) Comment on above: Performed By: #### Susan KAUR, CMP #### [address] [address] ALP [Catalytic activity/Vol] 757 U/L High 38-126 [facility] ([place] Comment on above: Performed By: #### Susan KAUR, CMP #### [address] [address] ALT [Catalytic activity/Vol] 31 U/L Normal 12-55 [facility] ([place] Comment on above: Performed By: #### Susan KAUR, CMP #### [address] [address] AST [Catalytic activity/Vol] 43 U/L High 8-34 [facility] ([place] Comment on above: Performed By: #### Susan KAUR, CMP #### [address] [address] Bili Total 0.70 mg/dL Normal 0.20-1.20 [facility] ([place]) Comment on above: Result Comment: Use of this assay is not recommended for patients undergoing treatment with eltrombopag due to the potential for falsely elevated results. Performed By: #### Susan KAUR, CMP #### [place] [phone] BUN/Creatinine Ratio 33.6 ratio High 10.0-22.0 [facility] ([place]) Comment on above: Performed By: #### Susan KAUR, CMP #### [address] [address] Calcium [Mass/Vol] 7.8 mg/dL Low 8.7-10.4 [facility] ([place]) Comment on above: Performed By: #### Susan KAUR, CMP #### [address] [address] Chloride [Moles/Vol] 96 mmol/L Low 98-110 [facility] ([place]) Comment on above: Performed By: #### Susan KAUR, CMP #### [place] [id number] CO2 [Moles/Vol] 25 mmol/L Normal 22-32 [facility] ([place]) Comment on above: Performed By: #### Susan KAUR, CMP #### [address] [address] Creatinine [Mass/Vol] 1.52 mg/dL High 0.60-1.40 [facility] ([place] Comment on above: Performed By: #### Susan KAUR, CMP #### [address] [address] Electrolyte Balance 9.0 mEq/L Normal 4.0-15.0 [facility] ([place]) Comment on above: Performed By: #### Susan KAUR, CMP #### [place] [id number] Globulin 4.7 G/dL High 1.5-3.8 [facility] ([place]) Comment on above: Performed By: #### Susan KAUR, CMP #### [address] [address] Glucose [Mass/Vol] 259 mg/dL High 70-110 [facility] ([place] Comment on above: Performed By: #### Susan KAUR, CMP #### [address] [address] Potassium [Moles/Vol] 4.8 mmol/L Normal 3.5-5.0 [facility] [place] Comment on above: Performed By: #### Susan KAUR, CMP #### [address] [address] Sodium [Moles/Vol] 130 mmol/L Low 136-145 [facility] ([place] Comment on above: Performed By: #### Susan KAUR, CMP #### [address] [address] Total Protein 7.2 G/dL Normal 5.7-8.2 [facility] ([place]) Comment on above: Result Comment: No te - New Reference Range in effect 20 Performed By: #### Susan KAUR, CMP #### [address] [address] Urea nitrogen [Mass/Vol] 51.0 mg/dL High 8.0-22.0 [facility] ([place]) Comment on above: Performed By: #### Susan KAUR, CMP #### [address] [address] Complete Blood Counton 05-12 Differential Complete Manual [facility] Erythrocyte distribution width (RBC) [Ratio] 13.3 % 0 - 14.4 % [facility] Hematocrit (Bld) [Volume fraction] 46.1 % 41 - 50 % [facility] Hemoglobin (Bld) [Mass/Vol] 16.2 g/dL 13.5 - 16.5 g/dl [facility] Immature granulocytes/100 WBC (Bld) 0.5 % [facility] Comment on above: Immature Granulocyte Percent includes promyelocytes, myelocytes, and metamyelocytes. IG% > 1.0 indicates a left shift is present. With automated differentials, bands are included in the neutrophil count and not in the Immature Granulocyte Percent. MCH (RBC) [Entitic mass] 31.6 pg 26 - 34 pg [facility] MCHC 35.1 % 31 - 37 % [facility] MCV (RBC) [Entitic vol] 90.0 fL 80 - 100 fl [facility] Nucleated RBC/100 WBC (Bld) [Ratio] 0 % -1 - 0 % [facility] Platelet mean volume (Bld) [Entitic vol] 9.6 fL [facility] Comment on above: MPV is platelet range and age dependent Platelets (Bld) [#/Vol] 303 10*3/uL [facility] RBC (Bld) [#/Vol] 5.12 10*6/uL [facility] WBC (Bld) [#/Vol] 20.8 10*3/uL High [facility] Comprehensive metabolic pane richard 05-12-2022 Albumin [Mass/Vol] 3.0 g/dL Low 3.5 - 5 g/dL [facility] ALP [Catalytic activity/Vol] 889 U/L High 40 - 129 U/L [facility] Comment on above: Hemolysis detected. Results may be falsely decreased. Interpret results with caution. ALT [Catalytic activity/Vol] 38 U/L 0 - 46 U/L [facility] Comment on above: Hemolysis detected. Results may be impacted variably as either falsely elevated or falsely decreased. Interpret results with caution. AST [Catalytic activity/Vol] 77 U/L High 0 - 37 U/L [facility] Comment on above: Hemolysis detected. Results may be falsely elevated. Interpret results with caution. Bilirubin [Mass/Vol] 1.0 mg/dL [facility] Calcium [Mass/Vol] 8.1 mg/dL 7.6 - 11 mg/dL [facility] Chloride [Moles/Vol] 88 mmol/L Low 96 - 10 8 mmol/L [facility] CO2 [Moles/Vol] 14.2 mmol/L Low 22 - 29 mmol/L [facility] Creatinine [Mass/Vol] 1.78 mg/dL High 0.7 - 1.2 mg/dL [facility] Glucose [Mass/Vol] 324 mg/dL High 70 - 99 mg/dL [facility] Comment on above: Criteria for Diagnos is of Diabetes: Fasting Specimen (no caloric intake for at least 8 hours): <100 mg/dL Normal 100-125 mg/dL Increased risk for Diabetes >125 mg/dL Diagnostic for Diabetes Random Glucose (any time of day without regard to last meal): > or = 200 mg/dL plus Classic Symptoms of Diabetes Potassium [Moles/Vol] 8.3 mmol/L Critically high 3.3 - 5.1 mmol/L [facility] Comment on above: Hemolysis detected. Results may be falsely elevated. Interpret results with caution. Critical value called To and Read back by: [id number] Protein [Mass/Vol] 8.3 g/dL 5.9 - 8.4 g/dL [facility] Sodium [Moles/Vol] 131 mmol/L Low 133 - 145 mmol/L [facility] Urea nitrogen [Mass/Vol] 45 mg/dL High 4 - 19 mg/dL [facility] Glucose by meteron 2 Glucose [Mass/Vol] 369 mg/dL High 70 - 99 mg/dL [facility] Comment on above: Bedside glucose is a screening procedure. The bedside glucose strip is calibrated to deliver plasma glucose levels. Glucose meter values <45 mg/dl and >450 mg/dl must be confirmed with a plasma or whole blood glucose performed in the lab. Whole blood glucose results are 10-15% lower than plasma glucose results. Glucose [Mass/Vol] 334 mg/dL High 70 - 99 mg/dL [facility] Comment on above: Bedside glucose is a screening procedure. The bedside glucose strip is calibrated to deliver plasma glucose levels. Glucose meter values <45 mg/dl and >450 mg/dl must be confirmed with a plasma or whole blood glucose performed in the lab. Whole blood glucose results are 10-15% lower than plasma glucose results. Glucose [Mass/Vol] 427 mg/dL High 70 - 99 mg/dL [facility] Comment on above: Bedside glucose is a screening procedure. The bedside glucose strip is calibrated to deliver plasma glucose levels. Glucose meter values <45 mg/dl and >450 mg/dl must be confirmed with a plasma or whole blood glucose performed in the lab. Whole blood glucose results are 10-15% lower than plasma glucose results. Interpretation and review of laboratory results Abnormal [facility] LABORATORYOrdered By: Lola Bains on 05-12-2022 Appearance (U) Clear (05/12/22 9:09 PM) Invalid Interpretation Code Clear AH Auto Urine SS Bilirubin Ql (U) Negative (05/12/22 9:09 PM) Invalid Interpretation Code Neg-Trace AH Auto Urine SS Color (U) Yellow (05/12/22 9:09 PM) Invalid Interpretation Code AH Auto Urine SS Glucose Test strip (U) [Mass/Vol] 250 mg/dL Invalid Interpretation Code Negativemg /dL AH Auto Urine SS Hemoglobin Auto test strip (U) [Mass/Vol] Trace (05/12/22 9:09 PM) Invalid Interpretation Code Neg-Trace AH Auto Urine SS Ketones Ql (U) 15 mg/dL Invalid Interpretation Code Neg-Tracem g/dL AH Auto Urine SS UA Leuk Est Negative (05/12/22 9:09 PM) Invalid Interpretation Code Negative Auto Urine SS UA Nitrite Negative (05/12/22 9:09 PM) Invalid Interpretation Code Negative AH Auto Urine SS UA pH 5.0 (05/12/22 9:09 PM) Invalid Interpretation Code 5.0 - 8.0 AH Auto Urine SS UA Protein 30 mg/dL Invalid Interpretation Code Negativemg /dL AH Auto Urine SS UA Spec Grav 1.015 (05/12/22 9:09 PM) Invalid Interpretation Code 1.006-1.02 9 Auto Urine SS UA Specimen Type Clean Catch (05/12/22 9:09 PM) Invalid Interpretation Code AH Auto Urine SS UA Urobilinogen 0.2 E.U./dL Invalid Interpretation Code 0.2-1.0E.U ./dL AH Auto Urine SS LABORATORYOrdered By: SYSTEM SYSTEM on 05-12-2022 Albumin BCP dye [Mass/Vol] 2.5 G/dL Invalid Interpretation Code 3.2 - 4.8 G/dL AH ADM SS Albumin/Globulin [Mass ratio] 0.5 {ratio} Invalid Interpretation Code 0.9 - 1.6 ratio AH ADM SS ALP [Catalytic activity/Vol] 757 U/L Invalid Interpretation Code 38 - 126 U/L ADM SS ALT No additional P-5'-P [Catalytic activity/Vol] 31 U/L Invalid Interpretation Code 12 - 55 U/L ADM SS AST [Catalytic activity/Vol] 43 U/L Invalid Interpretation Code 8 - 34 U/L ADM SS Bilirubin [Mass/Vol] 0.70 mg/dL Invalid Interpretation Code 0.20 - 1.20 mg/dL ADM SS Calcium [Mass/Vol] 7.8 mg/dL Invalid Interpretation Code 8.7 - 10.4 mg/dL ADM SS Chloride [Moles/Vol] 96 mmol/L Invalid Interpretation Code 98 - 110 mEq/L ADM SS CO2 [Moles/Vol] 25 mmol/L Invalid Interpretation Code 22 - 32 mEq/L ADM SS Creatinine [Mass/Vol] 1.52 mg/dL Invalid Interpretation Code 0.60 - 1.40 mg/dL ADM SS Electrolyte Balance 9.0 mEq/L Invalid Interpretation Code 4.0 - 15.0 mEq/L ADM SS GFR/1.73 sq M.predicted among blacks MDRD (S/P/Bld) [Vol rate/Area] ml/min/1.73sqm Invalid Interpretation Code Chemistry S GFR/1.73 sq M.predicted among non-blacks MDRD (S/P/Bld) [Vol rate/Area] 55 ml/min/1.73sqm Invalid Interpretation Code Chemistry S Globulin 4.7 G/dL Invalid Interpretation Code 1.5 - 3.8 G/dL ADM SS Glucose [Mass/Vol] 259 mg/dL Invalid Interpretation Code 70 - 110 mg/dL ADM SS Potassium [Moles/Vol] 4.8 mmol/L Invalid Interpretation Code 3.5 - 5.0 mEq/L ADM SS Protein [Mass/Vol] 7.2 G/dL Invalid Interpretation Code 5.7 - 8.2 G/dL ADM SS Sodium [Moles/Vol] 130 mmol/L Invalid Interpretation Code 136 - 145 mEq/L ADM SS Urea nitrogen [Mass/Vol] 51.0 mg/dL Invalid Interpretation Code 8.0 - 22.0 mg/dL ADM SS Urea nitrogen/Creatinine [Mass ratio] 33.6 ratio Invalid Interpretation Code 10.0 - 22.0 ratio AH ADM SS Lipaseon 05-12-2022 Lipase [Catalytic activity/Vol] 9 U/L Low 13 - 95 U/L [facility] Manual Differentialon 2021 % Metamyelocytes 0 % 0 - 0 % [facility] % Myelocytes 0 % 0 - 0 % [facility] % Promyelocytes 0 % 0 - 0 % [facility] Absolute Neutrophil No. 20.2 High [facility] Anisocytosis Slight [facility] Band Neutrophil 11 % 5 - 11 % [facility] Lymphocytes 3 % Low 24 - 44 % [facility] Poikilocytosis Slight [facility] Segmented Neutrophils 86 % High 35 - 66 % [facility] No Panel Informationon 05-12 Interpretation and review of laboratory results Abnormal [facility] Interpretation and review of laboratory results Abnormal [facility] Release to patient->Automatic ACH LAB [facility] Interpretation and review of laboratory results Abnormal [facility] Release to patient->Automatic ACH LAB [facility] Potassium,WBon 05-12-2022 Interpretation and review of laboratory results Abnormal [facility] Potassium, WB 6.0 Critically high [facility] Release to patient->Automatic ACH LAB [facility] Respiratory Panel Film Array on 05-12-2022 Respiratory pathogens DNA and RNA panel PABLO+non-probe (Nph) See Below [facility] Comment on above: Source: NPH Collecte d: 05/12/22 09:55 Site: Nose Received : 05/12/22 11:42 Respiratory Panel Film Array FINAL 05/12/22 12:46 - NEGATIVE: No SARS-CoV-2 detected. NEGATIVE: No respiratory pathogens were detected. - The Film Array Respiratory Panel detects DNA or RNA for the following organisms: Adenovirus [id number] Coronavirus 229E Coronavirus HKU1 Coronavirus NL63 Coronavirus OC43 Human metapneumovirus Rhinovirus/Enterovirus Influenza A virus(targets H1, H3, and H1-2009) Influenza B virus Parainfluenza Virus 1 Parainfluenza Virus 2 Parainfluenza Virus 3 Parainfluenza Virus 4 Respiratory Syncytial virus (RSV) Bordetella parapertussis Bordetella pertussis Chlamydia pneumoniae Mycoplasma pneumoniae - Comment: Negative results do not preclude SARS-CoV-2 infection and should not be used as the sole basis for treatment or other patient management decisions. Negative results must be combined with clinical observations, patient history, and epidemiological information. - Method: The [employer] Respiratory Panel 2.1 (RP2.1) is a multiplexed nucleic acid test intended for the simultaneous qualitative detection and differentiation of nucleic acids from multiple viral and bacterial respiratory organisms, including nucleic acid from Severe Acute Respiratory Syndrome Coronavirus 2 (SARS-CoV-2). This test is FDA [place] authorized. [facility] 05-12-2022 Color (U) Yellow Normal [facility] ([place]) Comment on above: Performed By: #### U A #### [place] [address] Glucose (U) [Mass/Vol] 250 mg/dL Abnormal Negative [facility] ([place]) Comment on above: Performed By: #### U A #### [place] [address] Ketones Ql (U) 15 mg/dL Abnormal Neg-Trace [facility] ([place]) Comment on above: Performed By: #### U A #### [place] [id number] UA Appear Clear Normal Clear [facility] ([place]) Comment on above: Performed By: #### U A #### [address] [address] UA Blood Trace Normal Neg-Trace [facility] ([place]) Comment on above: Performed By: #### U A #### [address] [address] UA Leuk Est Negative Normal Negative [facility] ([place]) Comment on above: Performed By: #### U A #### [address] [address] UA Nitrite Negative Normal Negative [facility] ([place]) Comment on above: Performed By: #### U A #### [place] [id number] UA pH 5.0 Normal 5.0 - 8.0 [facility] ([place]) Comment on above: Performed By: #### U A #### [address] [address] UA Protein 30 mg/dL Normal Negative [facility] ([place]) Comment on above: Performed By: #### U A #### [address] [address] UA Spec Grav 1.015 Normal 1.006-1.02 9 [facility] ([place]) Comment on above: Performed By: #### U A #### [place] [address] UA Specimen Type Clean Catch Normal [facility] ([place]) Comment on above: Performed By: #### U A #### [address] [address] UA Urobilinogen 0.2 E.U./dL Normal 0.2-1.0 [facility] ([place]) Comment on above: Performed By: #### U A #### [place] [address] Urobilinogen (U) [Mass/Vol] Negative Normal Neg-Trace [facility] ([place]) Comment on above: Performed By: #### U A #### [place] [address] XR Abdomen 2 Viewson 022 IMPRESSION: There ar e cystic fibrosis changes in the visualized lung bases. Surgical clips are seen in the left upper quadrant. There is a glucose monitor. There is a nonspecific bowel gas pattern. No bowel obstruction is seen. There is some stool in the colon. The fecal load is decreased from the last exam. No organomegaly or abnormal calcifications are identified. The bones are stable in appearance. This report has been created using voice recognition software [facility] CLINICAL HISTORY: ab dominal pain, vomiting, concern for JOSE COMPARISON: 06/15/2019 TECHNIQUE: ABDOMEN 2 VIEWS [facility] Fredo Brady MD - 10/2022 CLINICAL HISTORY: abdominal pain, vomiting, concern for JOSE COMPARISON: 06/15/2019 TECHNIQUE: ABDOMEN 2 VIEWS IMPRESSION: There are cystic fibrosis changes in the visualized lung bases. Surgical clips are seen in the left upper quadrant. There is a glucose monitor. There is a nonspecific bowel gas pattern. No bowel obstruction is seen. There is some stool in the colon. The fecal load is decreased from the last exam. No organomegaly or abnormal calcifications are identified. The bones are stable in appearance. This report has been created using voice recognition software [facility] Radiology Study observation (narrative) [facility] XR Abdomen 2 ViewsOrdered By : Fredo Brady on 05-12-2022 [facility] Work Phone: XR CHEST 1 VIEWon 05-12-2022 XR CHEST 1 VIEW ORIGINAL Images acquired, not reported on this accession number. Normal [facility] ([place]) XR Chest Single viewon 05-12 IMPRESSION: There ar e chronic cystic fibrosis changes in the lungs. Compared to the last exam there is a mild increase in the interstitial markings. Whether this is superimposed pneumonia is uncertain. The heart size is stable. No pneumothorax or pleural effusion is seen. There are surgical clips in the left upper quadrant. The bowel gas pattern is nonspecific. The bones are stable in appearance. This report has been created using voice recognition software [facility] CLINICAL HISTORY: CF pulmonary exacerbation COMPARISON: 06/15/2019, 03/19/2021, 12/06/2021, 01/14/2022 TECHNIQUE: CHEST AP ONLY [facility] Fredo Brady MD - 10/2022 CLINICAL HISTORY: CF pulmonary exacerbation COMPARISON: 06/15/2019, 03/19/2021, 12/06/2021, 01/14/2022 TECHNIQUE: CHEST AP ONLY IMPRESSION: There are chronic cystic fibrosis changes in the lungs. Compared to the last exam there is a mild increase in the interstitial markings. Whether this is superimposed pneumonia is uncertain. The heart size is stable. No pneumothorax or pleural effusion is seen. There are surgical clips in the left upper quadrant. The bowel gas pattern is nonspecific. The bones are stable in appearance. This report has been created using voice recognition software [facility] Radiology Study observation (narrative) [facility] Vital Signs Date Time Vital Sign Value Performing Clinician Facility 08-18-2024 13:25-0400 Body height 157.5 cm Jean Pierre Kilgore MD Work Phone: [facility] 08-18-2024 13:25-0400 Body mass index (BMI) [Ratio] 15.6 kg/m2 Jean Pierre Kilgore MD Work Phone: [facility] 08-18-2024 13:25-0400 Body temperature 98.01 [degF] Jean Pierre Kilgore MD Work Phone: [facility] 08-18-2024 13:25-0400 Body weight 38.7 kg Jean Pierre Kilgore MD Work Phone: [facility] 08-18-2024 13:25-0400 Diastolic blood pressure 88 mm[Hg] Jean Pierre Kilgore MD Work Phone: [facility] 08-18-2024 13:25-0400 Heart rate 90 /min Jean Pierre Kilgore MD Work Phone: [facility] 08-18-2024 13:25-0400 Respiratory rate 16 /min Jean Pierre Kilgore MD Work Phone: [facility] 08-18-2024 13:25-0400 SaO2% (BldA) [Mass fraction] 98 % Jean Pierre Kilgore MD Work Phone: [facility] 08-18-2024 13:25-0400 Systolic blood pressure 142 mm[Hg] Jean Pierre Kilgore MD Work Phone: [facility] 07-06-2024 13:37-0400 Body height 157.5 cm Stephie Ramirez APRN.ACQUISITION ANALYST Work Phone: [facility] 07-06-2024 13:37-0400 Body mass index (BMI) [Ratio] 17.1 kg/m2 Stephie Ramirez APRN.ACQUISITION ANALYST Work Phone: [facility] 07-06-2024 13:37-0400 Body weight 42.41 kg Stephie Ramirez APRN.CNP Work Phone: [facility] 07-06-2024 13:37-0400 Diastolic blood pressure 92 mm[Hg] Stephie Ramirez APRN.ACQUISITION ANALYST Work Phone: [facility] 07-06-2024 13:37-0400 Systolic blood pressure 156 mm[Hg] Stephie Ramirez APRN.ACQUISITION ANALYST Work Phone: [facility] 05-05-2024 14:22-0400 Body mass index (BMI) [Ratio] 17.42 kg/m2 Jean Pierre Kilgore MD Work Phone: [facility] 05-05-2024 14:22-0400 Body weight 43.2 kg Jean Pierre Kilgore MD Work Phone: [facility] 05-05-2024 14:22-0400 Diastolic blood pressure 98 mm[Hg] Jean Pierre Kilgore MD Work Phone: [facility] 05-05-2024 14:22-0400 Heart rate 89 /min Jean Pierre Kilgore MD Work Phone: [facility] 05-05-2024 14:22-0400 Respiratory rate 18 /min Jean Pierre Kilgore MD Work Phone: [facility] 05-05-2024 14:22-0400 SaO2% (BldA) [Mass fraction] 96 % Jean Pierre Kilgore MD Work Phone: [facility] 05-05-2024 14:22-0400 Systolic blood pressure 153 mm[Hg] Jean Pierre Kilgore MD Work Phone: [facility] 04-07-2024 13:29-0400 Body height 157.5 cm Tia Lindo MD Work Phone: [facility] 04-07-2024 13:29-0400 Body mass index (BMI) [Ratio] 17.34 kg/m2 Tia Lindo MD Work Phone: [facility] 04-07-2024 13:29-0400 Body temperature 99.5 [degF] Tia Lindo MD Work Phone: [facility] 04-07-2024 13:29-0400 Body weight 43 kg Tia Lindo MD Work Phone: [facility] 04-07-2024 13:29-0400 Diastolic blood pressure 78 mm[Hg] Tia Lindo MD Work Phone: [facility] 04-07-2024 13:29-0400 Heart rate 87 /min Tia Lindo MD Work Phone: [facility] 04-07-2024 13:29-0400 SaO2% (BldA) [Mass fraction] 97 % Tia Lindo MD Work Phone: [facility] 04-07-2024 13:29-0400 Systolic blood pressure 135 mm[Hg] Tia Lindo MD Work Phone: [facility] 03-09-2024 13:26-0400 Body height 157.5 cm Stephie Ramirez APRN.ACQUISITION ANALYST Work Phone: [facility] 03-09-2024 13:26-0400 Body weight 41.01 kg Stephie Ramirez APRN.ACQUISITION ANALYST Work Phone: [facility] 03-09-2024 13:26-0400 Diastolic blood pressure 76 mm[Hg] Stephie Ramirez APRN.ACQUISITION ANALYST Work Phone: [facility] 03-09-2024 13:26-0400 Systolic blood pressure 128 mm[Hg] Stephie Ramirez APRN.ACQUISITION ANALYST Work Phone: [facility] 02-25-2024 15:20-0400 Body height 157.5 cm Jean Pierre Kilgore MD Work Phone: [facility] 02-25-2024 15:20-0400 Body mass index (BMI) [Ratio] 16.29 kg/m2 Jean Pierre Kilgore MD Work Phone: [facility] 02-25-2024 15:20-0400 Body temperature 98.49 [degF] Jean Pierre Kilgore MD Work Phone: [facility] 02-25-2024 15:20-0400 Body weight 40.4 kg Jean Pierre Kilgore MD Work Phone: [facility] 02-25-2024 15:20-0400 Diastolic blood pressure 80 mm[Hg] Jean Pierre Kilgore MD Work Phone: [facility] 02-25-2024 15:20-0400 Heart rate 84 /min Jean Pierre Kilgore MD Work Phone: [facility] 02-25-2024 15:20-0400 SaO2% (BldA) [Mass fraction] 95 % Jean Pierre Kilgroe MD Work Phone: [facility] 02-25-2024 15:20-0400 Systolic blood pressure 126 mm[Hg] Jean Pierre Kilgore MD Work Phone: [facility] 09-24-2023 08:17-0400 Body height 160 cm She Pete DO Work Phone: [facility] 09-24-2023 08:17-0400 Body temperature 98.6 [degF] She Bether DO Work Phone: [facility] 09-24-2023 08:17-0400 Body weight 39.69 kg She Bether DO Work Phone: [facility] 09-24-2023 08:17-0400 Diastolic blood pressure 60 mm[Hg] She Bether DO Work Phone: [facility] 09-24-2023 08:17-0400 Heart rate 106 /min She Pete DO Work Phone: [facility] 09-24-2023 08:17-0400 SaO2% (BldA) [Mass fraction] 95 % She Bether DO Work Phone: [facility] 09-24-2023 08:17-0400 Systolic blood pressure 100 mm[Hg] She Bether DO Work Phone: [facility] 08-18-2023 11:20-0400 Body height 158 cm Fredo Moreno DO Work Phone: [facility] 08-18-2023 11:20-0400 Body temperature 100.6 [degF] Fredo Naderi DO Work Phone: [facility] 08-18-2023 11:20-0400 Body weight 37.65 kg Fredo Masci DO Work Phone: [facility] 08-18-2023 11:20-0400 Diastolic blood pressure 96 mm[Hg] Fredo Naderi DO Work Phone: [facility] 08-18-2023 11:20-0400 Heart rate 125 /min Fredo Masci DO Work Phone: [facility] 08-18-2023 11:20-0400 SaO2% (BldA) [Mass fraction] 97 % Fredo Naderi DO Work Phone: [facility] 08-18-2023 11:20-0400 Systolic blood pressure 147 mm[Hg] Fredo Doei DO Work Phone: [facility] 08-11-2023 13:34-0400 Body height 157.5 cm Stephie Ramirez APRN.ACQUISITION ANALYST Work Phone: [facility] 08-11-2023 13:34-0400 Body weight 39.96 kg Stephie Ramirez APRN.ACQUISITION ANALYST Work Phone: [facility] 08-11-2023 13:34-0400 Diastolic blood pressure 82 mm[Hg] Stephie Ramirez CASING INSPECTOR.ACQUISITION ANALYST Work Phone: [facility] 08-11-2023 13:34-0400 Systolic blood pressure 140 mm[Hg] Stephie Ramirez APRN.ACQUISITION ANALYST Work Phone: [facility] 07-02-2023 13:04-0400 Body temperature 101.5 [degF] Sally Bucur CASING INSPECTOR.ACQUISITION ANALYST Work Phone: [facility] 07-02-2023 13:04-0400 Body weight 39.5 kg Sally Bucur CASING INSPECTOR.ACQUISITION ANALYST Work Phone: [facility] 07-02-2023 13:04-0400 Diastolic blood pressure 65 mm[Hg] Sally Bucur CASING INSPECTOR.ACQUISITION ANALYST Work Phone: [facility] 07-02-2023 13:04-0400 Heart rate 118 /min Sally Bucur CASING INSPECTOR.ACQUISITION ANALYST Work Phone: [facility] 07-02-2023 13:04-0400 Respiratory rate 16 /min Sally Bucur CASING INSPECTOR.ACQUISITION ANALYST Work Phone: [facility] 07-02-2023 13:04-0400 SaO2% (BldA) [Mass fraction] 92 % Sally Bucur CASING INSPECTOR.ACQUISITION ANALYST Work Phone: [facility] 07-02-2023 13:04-0400 Systolic blood pressure 110 mm[Hg] Sally Bucur CASING INSPECTOR.ACQUISITION ANALYST Work Phone: [facility] 06-04-2023 15:23-0400 Body height 158.5 cm Jean Pierre Kilgore MD Work Phone: [facility] 06-04-2023 15:23-0400 Body temperature 99 [degF] Jean Pierre Kilgore MD Work Phone: [facility] 06-04-2023 15:23-0400 Body weight 40.51 kg Jean Pierre Kilgore MD Work Phone: [facility] 06-04-2023 15:23-0400 Diastolic blood pressure 70 mm[Hg] Jean Pierre Kilgore MD Work Phone: [facility] 06-04-2023 15:23-0400 Heart rate 86 /min Jean Pierre Kilgore MD Work Phone: [facility] 06-04-2023 15:23-0400 Respiratory rate 19 /min Jean Pierre Kilgore MD Work Phone: [facility] 06-04-2023 15:23-0400 SaO2% (BldA) [Mass fraction] 98 % Jean Pierre Kilgore MD Work Phone: [facility] 06-04-2023 15:23-0400 Systolic blood pressure 110 mm[Hg] Jean Pierre Kilgore MD Work Phone: [facility] 04-07-2023 14:28-0400 Body height 157.5 cm Stephie Ramirez APRN.ACQUISITION ANALYST Work Phone: [facility] 04-07-2023 14:28-0400 Body weight 42.09 kg Stephie Lundykelly RIZON.ACQUISITION ANALYST Work Phone: [facility] 04-07-2023 14:28-0400 Diastolic blood pressure 78 mm[Hg] Stephie Ramirez CASING INSPECTOR.ACQUISITION ANALYST Work Phone: [facility] 04-07-2023 14:28-0400 Systolic blood pressure 148 mm[Hg] Stephie Darrian CASING INSPECTOR.ACQUISITION ANALYST Work Phone: [facility] 04-01-2023 15:08-0400 Diastolic blood pressure 98 mm[Hg] Lab/Port Wstr Work Phone: [facility] 04-01-2023 15:08-0400 Heart rate 96 /min Lab/Port Wstr Work Phone: [facility] 04-01-2023 15:08-0400 SaO2% (BldA) [Mass fraction] 100 % Lab/Port Wstr Work Phone: [facility] 04-01-2023 15:08-0400 Systolic blood pressure 150 mm[Hg] Lab/Port Wstr Work Phone: [facility] 03-20-2023 12:02-0400 Body height 157.[address] Work Phone: [facility] 03-20-2023 12:02-0400 Body weight 40.[address] Work Phone: [facility] 03-19-2023 15:50-0400 Body height 157.5 cm She Pete DO Work Phone: [facility] 03-19-2023 15:50-0400 Body temperature 98.01 [degF] She Pete DO Work Phone: [facility] 03-19-2023 15:50-0400 Body weight 41 kg She Pete DO Work Phone: [facility] 03-19-2023 15:50-0400 Diastolic blood pressure 80 mm[Hg] She Bether DO Work Phone: [facility] 03-19-2023 15:50-0400 Heart rate 85 /min She Bether DO Work Phone: [facility] 03-19-2023 15:50-0400 Respiratory rate 18 /min She Pete DO Work Phone: [facility] 03-19-2023 15:50-0400 SaO2% (BldA) [Mass fraction] 98 % She Pete DO Work Phone: [facility] 03-19-2023 15:50-0400 Systolic blood pressure 140 mm[Hg] She Pete DO Work Phone: [facility] 03-05-2023 15:59-0400 Body height 157.5 cm Jean Pierre Kilgore MD Work Phone: [facility] 03-05-2023 15:59-0400 Body temperature 98.01 [degF] Jea nPierre Kilgore MD Work Phone: [facility] 03-05-2023 15:59-0400 Body weight 39.4 kg Jean Pierre Kilgore MD Work Phone: [facility] 03-05-2023 15:59-0400 Diastolic blood pressure 90 mm[Hg] Jean Pierre Kilgore MD Work Phone: [facility] 03-05-2023 15:59-0400 Heart rate 105 /min Jean Pierre Kilgore MD Work Phone: [facility] 03-05-2023 15:59-0400 Respiratory rate 24 /min Jean Pierre Kilgore MD Work Phone: [facility] 03-05-2023 15:59-0400 SaO2% (BldA) [Mass fraction] 97 % Jean Pierre Kilgore MD Work Phone: [facility] 03-05-2023 15:59-0400 Systolic blood pressure 140 mm[Hg] Jean Pierre Kilgore MD Work Phone: [facility] 02-26-2023 14:09-0400 Body temperature 97.81 [degF] Jean Pierre Kilgore MD Work Phone: [facility] 02-26-2023 14:09-0400 Body weight 38.92 kg Jean Pierre Kilgore MD Work Phone: [facility] 02-26-2023 14:09-0400 Diastolic blood pressure 60 mm[Hg] Jean Pierre Kilgore MD Work Phone: [facility] 02-26-2023 14:09-0400 Heart rate 91 /min Jean Pierre Kilgore MD Work Phone: [facility] 02-26-2023 14:09-0400 Respiratory rate 19 /min Jean Pierre Kilgore MD Work Phone: [facility] 02-26-2023 14:09-0400 SaO2% (BldA) [Mass fraction] 97 % Jean Pierre Kilgore MD Work Phone: [facility] 02-26-2023 14:09-0400 Systolic blood pressure 118 mm[Hg] Jean Pierre Kilgore MD Work Phone: [facility] 12-20-2022 12:59-0500 Body height 157.5 cm Stephie Ramirez APRN.ACQUISITION ANALYST Work Phone: [facility] 12-20-2022 12:59-0500 Body weight 40.55 kg Stephie Ramirez APRN.ACQUISITION ANALYST Work Phone: [facility] 12-20-2022 12:59-0500 Diastolic blood pressure 80 mm[Hg] Stephie Ramirez APRN.ACQUISITION ANALYST Work Phone: [facility] 12-20-2022 12:59-0500 Systolic blood pressure 142 mm[Hg] Stephie Ramirez APRN.ACQUISITION ANALYST Work Phone: [facility] 12-04-2022 15:38-0500 Body height 157.5 cm Jean Pierre Kilgore MD Work Phone: [facility] 12-04-2022 15:38-0500 Body temperature 99.39 [degF] Jean Pierre Kilgore MD Work Phone: [facility] 12-04-2022 15:38-0500 Body weight 40.61 kg Jean Pierre Kilgore MD Work Phone: [facility] 12-04-2022 15:38-0500 Diastolic blood pressure 90 mm[Hg] Jean Pierre Kilgore MD Work Phone: [facility] 12-04-2022 15:38-0500 Heart rate 100 /min Jean Pierre Kilgore MD Work Phone: [facility] 12-04-2022 15:38-0500 Respiratory rate 19 /min Jean Pierre Kilgore MD Work Phone: [facility] 12-04-2022 15:38-0500 SaO2% (BldA) [Mass fraction] 96 % Jean Pierre Kilgore MD Work Phone: [facility] 12-04-2022 15:38-0500 Systolic blood pressure 140 mm[Hg] Jean Pierre Kilgore MD Work Phone: [facility] 11-20-2022 08:19-0500 Body height 157.5 cm She Pete DO Work Phone: [facility] 11-20-2022 08:19-0500 Body temperature 98.8 [degF] She Pete DO Work Phone: [facility] 11-20-2022 08:19-0500 Body weight 39.3 kg She Pete DO Work Phone: [facility] 11-20-2022 08:19-0500 Diastolic blood pressure 80 mm[Hg] She Pete DO Work Phone: [facility] 11-20-2022 08:19-0500 Heart rate 100 /min She Pete DO Work Phone: [facility] 11-20-2022 08:19-0500 Respiratory rate 16 /min She Bether DO Work Phone: [facility] 11-20-2022 08:19-0500 SaO2% (BldA) [Mass fraction] 95 % She Daleninger DO Work Phone: [facility] 11-20-2022 08:19-0500 Systolic blood pressure 118 mm[Hg] She Daleninger DO Work Phone: [facility] 09-11-2022 08:47-0400 Body height 157.5 cm She Hunterninger DO Work Phone: [facility] 09-11-2022 08:47-0400 Body temperature 98.8 [degF] She Daleninger DO Work Phone: [facility] 09-11-2022 08:47-0400 Body weight 41.59 kg She Bether DO Work Phone: [facility] 09-11-2022 08:47-0400 Diastolic blood pressure 103 mm[Hg] She Bether DO Work Phone: [facility] 09-11-2022 08:47-0400 Heart rate 95 /min She Bether DO Work Phone: [facility] 09-11-2022 08:47-0400 SaO2% (BldA) [Mass fraction] 98 % She Hunterninger DO Work Phone: [facility] 09-11-2022 08:47-0400 Systolic blood pressure 153 mm[Hg] She Benninger DO Work Phone: [facility] 08-09-2022 09:55-0400 Body height 157 cm Sally Bucur CASING INSPECTOR.ACQUISITION ANALYST Work Phone: [facility] 08-09-2022 09:55-0400 Body temperature 99.1 [degF] Sally Bucur CASING INSPECTOR.ACQUISITION ANALYST Work Phone: [facility] 08-09-2022 09:55-0400 Body weight 39.4 kg Sally Bucur CASING INSPECTOR.ACQUISITION ANALYST Work Phone: [facility] 08-09-2022 09:55-0400 Diastolic blood pressure 60 mm[Hg] Sally Bucur CASING INSPECTOR.ACQUISITION ANALYST Work Phone: [facility] 08-09-2022 09:55-0400 Heart rate 95 /min Sally Bucur CASING INSPECTOR.ACQUISITION ANALYST Work Phone: [facility] 08-09-2022 09:55-0400 Respiratory rate 17 /min Sally Bucur CASING INSPECTOR.ACQUISITION ANALYST Work Phone: [facility] 08-09-2022 09:55-0400 SaO2% (BldA) [Mass fraction] 98 % Sally Bucur CASING INSPECTOR.ACQUISITION ANALYST Work Phone: [facility] 08-09-2022 09:55-0400 Systolic blood pressure 110 mm[Hg] Sally Bucur CASING INSPECTOR.ACQUISITION ANALYST Work Phone: [facility] 2022 09:31-0400 Body height 157.5 cm She Benninger DO Work Phone: [facility] 2022 09:31-0400 Body temperature 99.5 [degF] She Benninger DO Work Phone: [facility] 2022 09:31-0400 Body weight 38.42 kg She Hunterninger DO Work Phone: [facility] 2022 09:31-0400 Diastolic blood pressure 76 mm[Hg] She Benninger DO Work Phone: [facility] 2022 09:31-0400 Heart rate 117 /min She Benninger DO Work Phone: [facility] 2022 09:31-0400 SaO2% (BldA) [Mass fraction] 96 % She Benninger DO Work Phone: [facility] 2022 09:31-0400 Systolic blood pressure 138 mm[Hg] She Pete Work Phone: [facility] 05-14-2022 09:40-0400 Heart rate 80 /min Sabina Larios MD Work Phone: [facility] 05-14-2022 09:40-0400 Respiratory rate 20 /min Sabina Larios MD Work Phone: [facility] 05-14-2022 09:40-0400 SaO2% (BldA) [Mass fraction] 95 % Sabina Larios MD Work Phone: [facility] 05-14-2022 09:20-0400 Body temperature 98.4 [degF] Sabina Larios MD Work Phone: [facility] 05-14-2022 09:20-0400 Diastolic blood pressure 85 mm[Hg] Sabina Larios MD Work Phone: [facility] 05-14-2022 09:20-0400 Systolic blood pressure 144 mm[Hg] Sabina Larios MD Work Phone: [facility] 05-14-2022 02:20-0400 Body height 152 cm CURTIS CISNEROS MD [facility] 05-14-2022 02:20-0400 Body weight 37.9 kg CURTIS CISNEROS MD [facility] 05-14-2022 02:20-0400 Body weight 16.4 kg/m2 CURTIS CISNEROS MD [facility] 05-13-2022 01:23-0400 Body height 152 cm CURTIS CISNEROS MD [facility] 05-13-2022 01:23-0400 Body weight 16.4 kg/m2 CURTIS CISNEROS MD [facility] 05-13-2022 01:23-0400 Body weight 37.9 kg CURTIS CISNEROS MD [facility] 05-12-2022 16:10-0400 Body mass index (BMI) [Ratio] 16.4 kg/m2 Sabina Larios MD Work Phone: [facility] 05-12-2022 16:10-0400 Body weight 37.9 kg Sabina Larios MD Work Phone: [facility] Encounters Encounter Date Encounter Type Care Provider Facility Start: 08-30-2024 End: 08-30-2024 ambulatory Sally Bucur CASING INSPECTOR.ACQUISITION ANALYST Work Phone: Pulmonary Medicine Comment on above: Kayex[employer] Start: 08-27-2024 End: 08-27-2024 Orders Only Zaida Santos RN Work Phone: Pulmonary Medicine Comment on above: Hyperkalemia (Primar y Dx); Cystic fibrosis (HCC) Start: 08-25-2024 End: 08-25-2024 Telephone encounter Varsha LIVE Pulmonary Medicine Comment on above: Medication Problem ( Vanco timing) 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 Start: 08-23-2024 End: 08-23-2024 ambulatory SALLY BUCUR Facility:[facility] Start: 08-20-2024 End: 08-20-2024 Chart abstracting Zaida Santos RN Work Phone: Pulmonary Medicine Start: 08-19-2024 End: 08-19-2024 Telephone encounter Zaida Santos RN Work Phone: Pulmonary Medicine Comment on above: Follow Up Phone Call ; Tele Grout Sewer Line Repairer - Other Start: 08-19-2024 End: 08-19-2024 Patient encounter procedure Picc Nurse [facility] PICC TEAM Comment on above: Cystic fibrosis with pulmonary exacerbation (HCC); 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 Start: 08-19-2024 End: 08-19-2024 ambulatory JEAN PIERRE KILGORE Facility:[facility] Start: 08-18-2024 End: 08-18-2024 ambulatory JEAN PIERRE KILGORE Facility:[facility] Start: 08-18-2024 End: 08-18-2024 Office outpatient visit 40 minutes Jean Pierre Kilgore MD Work Phone: Pulmonary Medicine Comment on above: Cystic fibrosis with pulmonary exacerbation (HCC) (Primary Dx); 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 Start: 08-18-2024 End: 08-18-2024 ambulatory Zaida Santos RN Work Phone: Pulmonary Medicine Comment on above: Spirometry Cystic fibrosis with pulmonary exacerbation (HCC) (Primary Dx) Start: 08-18-2024 End: 08-18-2024 Patient encounter procedure Pulm Raf[facility] Work Phone: Pulmonary Medicine Start: 08-12-2024 End: 08-13-2024 ambulatory Sally Schneider APRN.ACQUISITION ANALYST Work Phone: Pulmonary Medicine Comment on above: Antibiotic Start: 08-12-2024 End: 08-12-2024 Chart abstracting Varsha LIVE Pulmonary Medicine Start: 08-11-2024 End: 08-11-2024 Refill Jean Pierre Kilgore MD Work Phone: Pulmonary Medicine Comment on above: Refill Request; Tena ent Update Start: 07-19-2024 End: 07-19-2024 Telemedicine consultation with patient Tia Lindo MD Work Phone: Gastroenterology Start: 07-19-2024 End: 07-19-2024 ambulatory Tia Lindo MD Work Phone: Gastroenterology Comment on above: Other cirrhosis of l iver (HCC) (Primary Dx) Start: 07-16-2024 End: 07-16-2024 ambulatory JEAN PIERRE KILGORE Facility:[facility] Start: 07-06-2024 End: 07-06-2024 Patient encounter procedure Stephie Ramirez APRN.ACQUISITION ANALYST Work Phone: [facility] Endocr[facility]ology Comment on above: Type 1 diabetes ximena itus with hyperglycemia (HCC) (Primary Dx) Start: 07-06-2024 End: 07-06-2024 ambulatory STEPHIE RAMIREZ Facility:[facility] Start: 07-05-2024 Chart abstracting Stephie Ramirez CASING INSPECTOR.ACQUISITION ANALYST Work Phone: [facility] Start: 05-15-2024 Refill Tia Lino Work Phone: Gastroenterology Comment on above: Refill Request Start: 05-07-2024 End: 05-07-2024 ambulatory MONO Marium HOROCIO Facility:[facility] Start: 05-07-2024 End: 05-07-2024 Subsequent hospital visit by physician Mri [facility] (I-Stat/1.5t) Work Phone: Radiology Comment on above: Abnormal results of liver function studies [R94.5] Start: 05-05-2024 End: 05-06-2024 Office outpatient visit 40 minutes Jean Pierre Kilgore MD Work Phone: Pulmonary Medicine Comment on above: Cystic fibrosis with pulmonary manifestations (HCC) (Primary Dx); 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) Start: 05-05-2024 End: 05-07-2024 Orders Only Nell Lozano [facility] Comment on above: Cystic fibrosis with pulmonary manifestations (HCC) (Primary Dx) Cystic fibrosis (HCC ) (Primary Dx) Spirometry Start: 04-30-2024 Chart abstracting Zaida viera RN Work Phone: Pulmonary Medicine Start: 04-07-2024 End: 04-07-2024 Patient encounter procedure Tia Lindo MD Work Phone: Gastroenterology Comment on above: Elevated alkaline ph osphatase level (Primary Dx) Start: 04-07-2024 End: 04-07-2024 ambulatory TIA LINDO Facility:[facility] Start: 03-26-2024 Telephone encounter Nell Tan Pulmonary Medicine Comment on above: Benefits Authorizati on (SPS [Denied Apr 26]) Start: 03-25-2024 End: 03-25-2024 ambulatory [facility] Facility:[facility] Start: 03-17-2024 End: 03-17-2024 Orders Only Zaida Santos RN Work Phone: Pulmonary Medicine Comment on above: 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) Start: 03-09-2024 End: 03-09-2024 Patient encounter procedure Stephie Ramirez APRN.ACQUISITION ANALYST Work Phone: [facility] End[facility]ology Comment on above: Type 1 diabetes ximena itus with hyperglycemia (HCC) (Primary Dx) Start: 03-09-2024 End: 03-09-2024 ambulatory STEPHIE RAMIREZ Facility:[facility] Start: 03-08-2024 ambulatory Zaida kumari RN Work Phone: Pulmonary Medicine Comment on above: Lab work tomorrow Start: 03-08-2024 E-mail encounter fro m caregiver Zaida Santos RN Work Phone: [facility] Start: 03-05-2024 End: 03-05-2024 ambulatory [facility] Facility:[facility] Start: 03-02-2024 End: 03-02-2024 ambulatory Lab/[place] [facility] Work Phone: Hematology/Oncology Comment on above: Cystic fibrosis with pulmonary exacerbation (HCC) (Primary Dx) Start: 03-01-2024 Telephone encounter Sally castillo APRN.ACQUISITION ANALYST Work Phone: Pulmonary Medicine Comment on above: Patient Question Start: 02-28-2024 Refill Stephie Ramirez APRN.ACQUISITION ANALYST Work Phone: [facility] End[facility] Comment on above: Refill Request Start: 02-27-2024 End: 02-27-2024 ambulatory [facility] Facility:[facility] Start: 02-25-2024 End: 02-25-2024 Office outpatient visit 40 minutes Jean Pierre Kilgore MD Work Phone: Pulmonary Medicine Comment on above: 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) (HCC) (Primary Dx); Cystic fibrosis with pulmonary manifestations (HCC); 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); Pseudomonas aeruginosa infection; 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); Acute kidney injury due to nephrotoxicity (HCC) (HCC) Start: 02-25-2024 End: 02-25-2024 ambulatory [facility] Infectious Disease Comment on above: [employer] Stop Start: 02-24-2024 ambulatory Amadou tan MD Work Phone: Infectious Disease Comment on above: Outside Lab Results Start: 02-20-2024 Telephone encounter Varsha GARCIA Pulmonary Medicine Comment on above: Returning Patient's Call (insurance) Start: 02-19-2024 End: 02-19-2024 ambulatory [facility] Infectious Disease Comment on above: Dose Change Copat (v ancomycin) Start: 02-19-2024 Telephone encounter Jean Pierre Kilgore MD Work Phone: Pulmonary Medicine Comment on above: Patient Question Start: 02-18-2024 ambulatory [facility] Infect[facility] Disease Comment on above: CoPat Management (We ekly labs) Start: 02-18-2024 Chart abstracting Zaida viera RN Work Phone: Pulmonary Medicine Start: 02-18-2024 Telephone encounter Zaida Santos RN Work Phone: Pulmonary Medicine Comment on above: Cystic fibrosis exac erbation (HCC) (Primary Dx); Cystic fibrosis with pulmonary exacerbation (HCC) Start: 02-17-2024 ambulatory Amadou tan MD Work Phone: Infectious Disease Comment on above: Outside Lab Results Start: 02-17-2024 Telephone encounter Randall MARTINS Comment on above: Follow Up Phone Call (RC f/u all clear/) Start: 02-16-2024 Orders Only Fernando Zhang RD Work Phone: Pulmonary Medicine Comment on above: Pancreatic insuffici ency due to cystic fibrosis (HCC) (HCC) (Primary Dx) [employer] Agency Start: 02-16-2024 End: 02-17-2024 Evaluation and management of inpatient Pamela Storm DO Work Phone: Pulmonary Medicine Comment on above: Recheck Start: 02-15-2024 Telephone encounter Ivet atkinson MD Work Phone: [facility] [place] Comment on above: Hospital F/U (/) Start: 02-13-2024 Chart abstracting Zaida viera RN Work Phone: Pulmonary Medicine Start: 02-12-2024 End: 02-12-2024 Evaluation and management of inpatient Pamela Storm DO Work Phone: Pulmonary Medicine Comment on above: Dyspnea, unspecified type (Primary Dx) Start: 02-09-2024 ambulatory Amadou tan MD Work Phone: [facility] Comment on above: CoPat Start ([place] em, vancomycin) Start: 02-05-2024 End: 02-05-2024 Evaluation and management of inpatient MAYTE AMANDA Facility:[facility] Start: 02-03-2024 Telephone encounter Sally castillo APRN.ACQUISITION ANALYST Work Phone: Pulmonary Medicine Comment on above: Patient Update Start: 02-03-2024 End: 02-16-2024 Evaluation and management of inpatient PAMELA STORM Facility:[facility] Start: 01-02-2024 Chart abstracting Fernando guevara RD Work Phone: Pulmonary Medicine Comment on above: Cystic fibrosis (HCC ) (Primary Dx); 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); 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); Dietary counseling and surveillance; Vitamin D deficiency Start: 12-28-2023 Refill Stephie Ramirez APRN.ACQUISITION ANALYST Work Phone: [facility] Comment on above: Refill Request Start: 12-09-2023 End: 12-09-2023 ambulatory SALLY JENNIE Facility:[facility] Start: 12-05-2023 End: 12-05-2023 ambulatory SALLY BUCUR Facility:[facility] Start: 11-20-2023 Chart abstracting Stephie Ramirez APRN.ACQUISITION ANALYST [facility] Start: 11-20-2023 End: 11-20-2023 ambulatory STEPHIE RAMIREZ Facility:[facility] Start: 11-13-2023 Orders Only Fernando Zhang RD Work Phone: Pulmonary Medicine Comment on above: Cystic fibrosis (HCC ) (Primary Dx) Start: 11-12-2023 End: 11-13-2023 Social Work Varsha LIVE Pulmonary Medicine Start: 11-07-2023 Chart abstracting Zaida viera RN Work Phone: Pulmonary Medicine Start: 11-05-2023 End: 11-05-2023 ambulatory SHE YANCI Facility:[facility] Start: 10-24-2023 Refill Forrest Hale MD Work Phone: Pulmonary Medicine Comment on above: Refill Request Start: 10-16-2023 ambulatory She felix DO Work Phone: Pulmonary Medicine Comment on above: Tranexamic Acid tabl ets Start: 10-03-2023 Telephone encounter She ferreira DO Work Phone: Pulmonary Medicine Comment on above: Medication Problem Start: 09-30-2023 ambulatory She felix DO Work Phone: Pulmonary Medicine Comment on above: Disability inquiry Start: 09-29-2023 Orders Only She felix DO Work Phone: Pulmonary Medicine Comment on above: Osteoporosis, unspec ified osteoporosis type, unspecified pathological fracture presence (Primary Dx); Cystic fibrosis (HCC) bone density results Start: 09-24-2023 End: 09-24-2023 Subsequent hospital visit by physician Bone Density Bud RADIO BONE DENSITY [facility] Comment on above: Osteoporosis without current pathological fracture, unspecified osteoporosis type [M81.0] Start: 09-24-2023 End: 09-24-2023 ambulatory SHE PETE Facility:[facility] Start: 09-24-2023 End: 09-24-2023 Patient encounter procedure She Pete DO Work Phone: Pulmonary Medicine Comment on above: Cystic fibrosis with pulmonary manifestations (HCC) (Primary Dx); 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); Pseudomonas aeruginosa infection; Burkholderia cepacia infection; 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) ; Vitamin D deficiency; Elevated liver enzymes level due to cystic fibrosis (HCC) ; Cystic fibrosis with liver disease (HCC) ; Chronic pansinusitis; Severe protein-calorie malnutrition (HCC) Start: 09-19-2023 ambulatory BE ROCA Facility:[facility] Start: 09-17-2023 Chart abstracting Zaida viera RN Work Phone: Pulmonary Medicine Start: 09-10-2023 End: 09-10-2023 ambulatory SHE PETE Facility:[facility] Start: 08-21-2023 Telephone encounter Sally castillo CASING INSPECTOR.ACQUISITION ANALYST Work Phone: Pulmonary Medicine Start: 08-20-2023 Telephone encounter Fredo nichols DO Work Phone: Hematology/Oncology Comment on above: Results Start: 08-18-2023 End: 08-18-2023 ambulatory Fredo Moreno DO Work Phone: Hematology/Oncology Comment on above: 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); Other specified intestinal malabsorption Start: 08-18-2023 End: 08-18-2023 Patient encounter procedure Fredo Moreno DO Work Phone: [facility] Start: 08-12-2023 Chart abstracting Cheyanne Kraus RRT [facility] Medicine Comment on above: Home Nebulizer Order Start: 08-11-2023 End: 08-11-2023 Patient encounter procedure Stephie Ramirez CASING INSPECTOR.ACQUISITION ANALYST Work Phone: [facility] Comment on above: Type 1 diabetes ximena itus with hyperglycemia (HCC) (Primary Dx) Start: 08-07-2023 ambulatory She felix DO Work Phone: Pulmonary Medicine Comment on above: Nebulizer machines Start: 08-06-2023 End: 08-06-2023 ambulatory Jean Pierre Kilgore MD Work Phone: Pulmonary Medicine Comment on above: Cystic fibrosis with pulmonary manifestations (HCC) (Primary Dx) Start: 08-06-2023 End: 08-06-2023 Telemedicine consultation with patient Jean Pierre Kilgore MD Work Phone: [facility] Start: 08-06-2023 Telephone encounter Varsha GARCIA Pulmonary Medicine Comment on above: 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 (Medical records and DAVID.) Start: 08-02-2023 ambulatory She felix DO Work Phone: Pulmonary Medicine Comment on above: Potassium and kidney Start: 08-01-2023 Orders Only Nell Lozano [employer] Pulm onary Medicine Comment on above: Osteoporosis without current pathological fracture, unspecified osteoporosis type (Primary Dx) Start: 07-30-2023 Refill Sally Bucur CASING INSPECTOR.ACQUISITION ANALYST Work Phone: Pulmonary Medicine Comment on above: Refill Request Start: 07-24-2023 End: 07-24-2023 Evaluation and management of inpatient Pulm Fct Lab J-2 Pulmonary Medicine Comment on above: Cystic fibrosis (HCC ) (Primary Dx) Start: 2023 ambulatory Sally Bucur CASING INSPECTOR.ACQUISITION ANALYST Work Phone: Pulmonary Medicine Comment on above: Leave of Absence Start: 2023 End: 2023 Evaluation and management of inpatient Pulm Fct Lab J-1 Pulmonary Medicine Comment on above: Cystic fibrosis (HCC ) (Primary Dx) Start: 07-10-2023 End: 07-10-2023 Evaluation and management of inpatient Pulm Fct Lab J-2 Pulmonary Medicine Comment on above: Cystic fibrosis (HCC ) (Primary Dx) Start: 07-02-2023 End: 07-02-2023 Patient encounter procedure Pulm Fct Lab 1 - A110 Work Phone: [facility] Comment on above: Cystic fibrosis (HCC ) (Primary Dx); Burkholderia cepacia infection; MRSA (methicillin resistant Staphylococcus aureus) infection; Pseudomonas aeruginosa infection; Chronic sinusitis, unspecified location; 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); 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) Start: 07-02-2023 End: 07-02-2023 ambulatory Pulm A110 Work Phone: Pulmonary Medicine Comment on above: Spirometry Start: 07-01-2023 Chart abstracting Fernando guevara RD Work Phone: Pulmonary Medicine Start: 07-01-2023 Telephone encounter She ferreira DO Work Phone: Pulmonary Medicine Comment on above: Appointment Start: 06-23-2023 ambulatory She felix DO Work Phone: Pulmonary Medicine Comment on above: BC Start: 06-04-2023 End: 06-04-2023 Office outpatient visit 25 minutes Jean Pierre Kilgore MD Work Phone: Pulmonary Medicine Comment on above: Cystic fibrosis with pulmonary manifestations (HCC) (Primary Dx) Start: 06-04-2023 End: 06-04-2023 ambulatory [place] Work Phone: Pulmonary Medicine Comment on above: Spirometry Start: 06-04-2023 End: 06-04-2023 [facility] Phone: [facility] Start: 06-02-2023 End: 06-02-2023 Subsequent hospital visit by physician Xr [facility] Maxwell Zimmer Work Phone: Radiology Comment on above: Cystic fibrosis (HCC ) [E84.9] Start: 06-02-2023 Chart abstracting Sally jones CASING INSPECTOR.ACQUISITION ANALYST Work Phone: Pulmonary Medicine Start: 06-02-2023 Telephone encounter Sally castillo CASING INSPECTOR.ACQUISITION ANALYST Work Phone: Pulmonary Medicine Comment on above: Results Start: 05-28-2023 Telephone encounter She ferreira DO Work Phone: Pulmonary Medicine Comment on above: Appointment Start: 05-19-2023 Telephone encounter Fernando funk RD Work Phone: Pulmonary Medicine Comment on above: Returning Patient's Call Cystic fibrosis (HCC ) (Primary Dx); 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) Start: 04-07-2023 End: 04-07-2023 Patient encounter procedure Stephie Ramirez APRN.ACQUISITION ANALYST Work Phone: [facility] Comment on above: Type 1 diabetes ximena itus with hyperglycemia (HCC) (Primary Dx) Start: 04-07-2023 Chart abstracting Stephie Ramirez APRN.ACQUISITION ANALYST Work Phone: [facility] Start: 04-01-2023 End: 04-01-2023 ambulatory Lab/[place] [facility] Work Phone: Hematology/Oncology Comment on above: Cystic fibrosis with pulmonary exacerbation (HCC) (Primary Dx) Start: 03-31-2023 Orders Only She felix DO Work Phone: Pulmonary Medicine Comment on above: Cystic fibrosis with pulmonary exacerbation (HCC) (Primary Dx); Cystic fibrosis with pulmonary manifestations (HCC) Start: 03-28-2023 ambulatory Peewee Vela RN [facility] Comment on above: CoPat Stop Completing home IV Start: 03-26-2023 End: 03-26-2023 ambulatory [place] Work Phone: Pulmonary Medicine Comment on above: No Show Start: 03-26-2023 End: 03-26-2023 Patient encounter procedure Pulm Lab [place] Work Phone: [facility] Start: 03-25-2023 ambulatory She felix DO Work Phone: Pulmonary Medicine Comment on above: Labs and respiratory viral panel Start: 03-25-2023 E-mail encounter fro m caregiver She Pete DO Work Phone: [facility] Start: 03-20-2023 ambulatory Lou Westbrook RN Infec tious Disease Comment on above: Extend CoPat (03/28) Start: 03-20-2023 Telephone encounter She ferreira DO Work Phone: Pulmonary Medicine Comment on above: Medication Problem Patient Update Start: 03-19-2023 End: 03-19-2023 Patient encounter procedure Pulm Lab [place] Work Phone: Pulmonary Medicine Comment on above: Cystic fibrosis with pulmonary exacerbation (HCC) (Primary Dx) Cystic fibrosis with pulmonary exacerbation (HCC) (Primary Dx); Cystic fibrosis (HCC); Chronic sinusitis, unspecified location; 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); Essential hypertension; Chronic pansinusitis; 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); Severe protein-calorie malnutrition (HCC); 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); Low weight Start: 03-19-2023 End: 03-19-2023 ambulatory She Pete DO Work Phone: Pulmonary Medicine Comment on above: FMLA paperwork Patient Education; R eassessment Start: 03-19-2023 E-mail encounter fro m caregiver She Yanci DO Work Phone: [facility] Start: 03-17-2023 ambulatory She felix DO Work Phone: Pulmonary Medicine Comment on above: Labs Start: 03-17-2023 Chart abstracting She sen DO Work Phone: Pulmonary Medicine Comment on above: CF chart review Start: 03-17-2023 E-mail encounter fro m caregiver She Yanci DO Work Phone: [facility] Start: 03-12-2023 ambulatory Anabel Michel MD Work Phone: Infectious Disease Comment on above: CoPat Agency Start: 03-10-2023 Orders Only Sally Schneider CASING INSPECTOR.ACQUISITION ANALYST Work Phone: Pulmonary Medicine Comment on above: Cystic fibrosis (HCC ) (Primary Dx) Start: 03-09-2023 ambulatory Anabel Michel MD Work Phone: [facility] Comment on above: CoPat Start Start: 03-06-2023 Telephone encounter Alex carter MD Work Phone: Pulmonary Medicine Comment on above: Advice Only (Discuss ion about transplant readiness) Patient Question Start: 03-05-2023 End: 03-05-2023 Office outpatient visit 40 minutes Jean Pierre Kilgore MD Work Phone: Pulmonary Medicine Comment on above: Cystic fibrosis with pulmonary manifestations (HCC) (Primary Dx) Start: 03-05-2023 End: 03-05-2023 ambulatory Pulm [place] Work Phone: Pulmonary Medicine Comment on above: Spirometry Start: 03-05-2023 End: 03-05-2023 Patient encounter procedure Pulm Lab [facility] Work Phone: [facility] Start: 03-03-2023 Orders Only Nellblacna Lozano [facility] [place] Comment on above: Cystic fibrosis with pulmonary manifestations (HCC) (Primary Dx) Start: 02-27-2023 ambulatory Jean Pierre Kilgore MD Work Phone: [facility] Start: 02-27-2023 Follow-up encounter Jean Pierre Kilgore MD Work Phone: Pulmonary Medicine Comment on above: Visit follow up Start: 02-26-2023 ambulatory Stephie Ramirez APRN.ACQUISITION ANALYST Work Phone: [facility] Comment on above: Dexcom Start: 02-26-2023 End: 02-26-2023 Office outpatient visit 25 minutes Jean Pierre Kilgore MD Work Phone: Pulmonary Medicine Comment on above: Cystic fibrosis with pulmonary manifestations (HCC) (Primary Dx) Start: 02-17-2023 Telephone encounter Jean Pierre Kilgore MD Work Phone: Pulmonary Medicine Comment on above: Appointment Start: 01-13-2023 Chart abstracting She sen DO Work Phone: Pulmonary Medicine Start: 12-30-2022 Telephone encounter She ferreira DO Work Phone: Pulmonary Medicine Comment on above: Insurance Authorizat ion (Copat extensions from 11/23/22-12/05/22 for Meropenem 1.5g q8h and vancomycin 0.75g q12h) Start: 12-20-2022 Chart abstracting Stephie Ramirez APRN.ACQUISITION ANALYST Work Phone: [facility] Endocrinology Start: 12-20-2022 End: 12-20-2022 Patient encounter procedure Stephie Ramirez APRN.ACQUISITION ANALYST Work Phone: [facility] Comment on above: Type 1 diabetes ximena itus with hyperglycemia (HCC) (Primary Dx) Start: 12-18-2022 Telephone encounter She ferreira DO Work Phone: Pulmonary Medicine Comment on above: Benefits Authorizati on Start: 12-06-2022 Telephone encounter Karlene Castorena ella DO Work Phone: Kidney Medicine Comment on above: Appointment Start: 12-04-2022 End: 12-04-2022 ambulatory Pulm Tob[place] Work Phone: Pulmonary Medicine Comment on above: Spirometry Start: 12-04-2022 End: 12-04-2022 Patient encounter procedure Pulm Lab [facility] Work Phone: [facility] Comment on above: Need for prophylacti c vaccination and inoculation against influenza (Primary Dx); Cystic fibrosis with pulmonary exacerbation (HCC); Burkholderia cepacia infection; Transaminitis; Cystic fibrosis with liver disease (HCC); 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); MRSA (methicillin resistant Staphylococcus aureus) infection Start: 11-29-2022 ambulatory Luiza delatorre MD Work Phone: Infectious Disease Comment on above: CoPat Stop Start: 11-29-2022 Telephone encounter She ferreira DO Work Phone: Pulmonary Medicine Comment on above: Results Start: 11-28-2022 ambulatory She felix DO Work Phone: Pulmonary Medicine Comment on above: Labs Start: 11-27-2022 Orders Only She felix DO Work Phone: Pulmonary Medicine Comment on above: Cystic fibrosis with pulmonary manifestations (HCC) (Primary Dx); Pseudomonas aeruginosa infection; Burkholderia cepacia infection; MRSA (methicillin resistant Staphylococcus aureus) infection Start: 11-26-2022 ambulatory Luiza delatorre MD Work Phone: Infectious Disease Comment on above: Outside Lab Results (copat) Start: 11-26-2022 Telephone encounter She ferreira DO Work Phone: Pulmonary Medicine Comment on above: Outside Lab Results Infection (Primary D x) Start: 11-20-2022 End: 11-20-2022 ambulatory Luiza Rodriges MD Work Phone: Pulmonary Medicine Comment on above: Spirometry Extend CoPat (11/29) Refill Request Start: 11-20-2022 End: 11-20-2022 Patient encounter procedure Pulm Lab [facility] Work Phone: [facility] Comment on above: Cystic fibrosis with pulmonary exacerbation (HCC) (Primary Dx); Cystic fibrosis with pulmonary manifestations (HCC); 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 Comment on above: Insurance Authorizat ion (for 0.9% Sodium Chloride 1000 ml//Infuse 1000 ml daily for 4 days/) Start: 11-18-2022 Chart abstracting Miguelina Murray RN [facility] Comment on above: Cystic fibrosis with pulmonary exacerbation (HCC) (Primary Dx) Start: 11-18-2022 Telephone encounter She ferreira DO Work Phone: Pulmonary Medicine Comment on above: Outside Lab Results Start: 11-12-2022 ambulatory Luiza delatorre MD Work Phone: Infectious Disease Comment on above: CoPat Agency Start: 11-12-2022 Telephone encounter Luiza Rodriges MD Work Phone: [facility] Comment on above: Insurance Authorizat ion (for Vancomycin 750mg IV every 12 hours ,Meropenem 1.5gm IV every 8 hours ,Benadryl 50mg A12Lkelc) Start: 11-11-2022 Orders Only Sally Schneider APRN.ACQUISITION ANALYST Work Phone: Pediatric Pulmonary Comment on above: Cystic fibrosis (HCC ) (Primary Dx) Start: 11-08-2022 ambulatory Luiza delatorre MD Work Phone: [facility] Comment on above: CoPat Start Start: 11-05-2022 Chart abstracting Sally jones APRN.ACQUISITION ANALYST Work Phone: Pulmonary Medicine Start: 11-05-2022 End: 11-05-2022 ambulatory Pulm A110 Work Phone: Pulmonary Medicine Comment on above: Spirometry Start: 11-05-2022 End: 11-05-2022 Patient encounter procedure Pulm Fct Lab 2 - A110 Work Phone: [facility] Start: 11-04-2022 Telephone encounter She ferreira DO Work Phone: Pulmonary Medicine Comment on above: Appointment Start: 10-02-2022 Refill Pamela more DO Work Phone: Pulmonary Medicine Comment on above: Refill Request Start: 09-25-2022 Refill She Beth elvira DO Work Phone: Pulmonary Medicine Comment on above: Refill Request Start: 09-12-2022 ambulatory She felix DO Work Phone: Pulmonary Medicine Comment on above: Liver enzymes Start: 09-12-2022 E-mail encounter santo rasmussen caregiver She Hunterailynelvira DO Work Phone: [facility] Start: 09-11-2022 E-mail encounter santo rasmussen caregiver She Pete DO Work Phone: [facility] Start: 09-11-2022 Follow-up encounter She ferreira DO Work Phone: Family Medicine [facility] Comment on above: CF follow-up visit Start: 09-11-2022 End: 09-11-2022 ambulatory [place] Work Phone: Pulmonary Medicine Comment on above: Spirometry Start: 09-11-2022 End: 09-11-2022 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); Cystic fibrosis with pulmonary manifestations (HCC); Severe protein-calorie malnutrition (HCC) Start: 09-05-2022 ambulatory Stephie Ramirez CASING INSPECTOR.ACQUISITION ANALYST Work Phone: [facility] Start: 09-05-2022 Follow-up encounter Stephie Ramirez APRN.ACQUISITION ANALYST Work Phone: [facility]ocr[facility] Comment on above: Overdue follow up Start: 08-28-2022 Telephone encounter Sally castillo APRN.ACQUISITION ANALYST Work Phone: Family Medicine [facility] Comment on above: Medication Problem Start: 08-26-2022 ambulatory She felix DO Work Phone: Pulmonary Medicine Comment on above: Covid 19 Cystic fibrosis with pulmonary manifestations (HCC) (Primary Dx) Start: 08-26-2022 E-mail encounter santo rasmussen caregiver Sally Schneider APRN.ACQUISITION ANALYST Work Phone: [facility] Start: 08-09-2022 End: 08-09-2022 ambulatory Jordyn Johnson MD Work Phone: Pediatric Pulmonary Comment on above: Spirometry CoPat Stop Start: 08-09-2022 End: 08-09-2022 Patient encounter procedure Peds Pulm [employer] [facility] Work Phone: [facility] Comment on above: Cystic fibrosis (HCC ) (Primary Dx); Pseudomonas aeruginosa infection; Burkholderia cepacia infection; MRSA (methicillin resistant Staphylococcus aureus) infection; 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); 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) Start: 08-06-2022 ambulatory Jordyn Johnson MD Work Phone: Infectious Disease Comment on above: Outside Lab Results (copat) Start: 08-01-2022 ambulatory Alex Clayton RN Work Phone: Case Management Comment on above: CoPat Agency Start: 07-31-2022 ambulatory Jordyn Johnson MD Work Phone: [facility] Comment on above: CoPat Start Start: 07-25-2022 End: 07-25-2022 Orders Only Forrest Hale MD Work Phone: Pulmonary Medicine Comment on above: Cystic fibrosis with pulmonary manifestations (HCC) (Primary Dx) Cystic fibrosis with pulmonary manifestations (HCC) [E84.0] Start: 07-24-2022 Telephone encounter Forrest Hale MD Work Phone: Pulmonary Medicine Comment on above: Coughing Up Blood Start: 07-23-2022 ambulatory She felix DO Work Phone: Pulmonary Medicine Comment on above: Disability placard / med rx Start: 07-18-2022 Orders Only Fernando lau RD Work Phone: Pulmonary Medicine Comment on above: Pancreatic insuffici ency due to cystic fibrosis (HCC) (Primary Dx); Vitamin D deficiency Start: 2022 Chart abstracting She sen DO Work Phone: Pulmonary Medicine Start: 2022 End: 2022 Patient encounter procedure She Pete DO Work Phone: Pulmonary Medicine Comment on above: Cystic fibrosis with pulmonary manifestations (HCC) (Primary Dx); 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); 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); Cystic fibrosis with liver disease (HCC); Chronic pansinusitis; Low weight; Encounter for screening for osteoporosis Start: 05-12-2022 End: 05-12-2022 ambulatory UNKNOWN PROVIDER Facility:[facility] Start: 05-12-2022 End: 05-14-2022 Dona Quintana'tamela CISNEROS MD [facility] Start: 05-12-2022 End: 05-14-2022 Evaluation and management of inpatient MD NO PRIMARY CARE [facility] Start: 05-12-2022 End: 05-14-2022 Evaluation and management of inpatient Sabina Larios MD Work Phone: [facility] Comment on above: Intractable nausea a nd vomiting (Primary Dx); Cystic fibrosis; 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; RITA (acute kidney injury); Advanced Lung Disease; Burkholderia cepacia infection; Allergic bronchopulmonary aspergillosis; Acute respiratory failure with hypoxia; Esophageal 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; Portal hypertension; Moderate persistent asthma without complication; Hypersplenism syndrome; Gastroesophageal reflux disease without esophagitis; Biliary cirrhosis; Short stature; Seasonal allergic rhinitis, unspecified trigger; Pancreatic insufficiency due to cystic fibrosis; Cystic fibrosis - use contact precautions Start: 03-20-2022 Chart abstracting [facility] Start: 03-05-2022 Telephone encounter Forrest Hale MD Work Phone: Pulmonary Medicine Comment on above: New CF Referral Start: 11-05-2018 Patient encounter STEPHIE RAMIREZ Facility:[facility] Start: 09-10-2018 End: 09-10-2018 Patient encounter STEPHIE RAMIREZ Facility:[facility] Start: 07-02-2018 Patient encounter STEPHIE RAMIREZ Facility:[facility] Start: 06-18-2018 End: 06-18-2018 Patient encounter STEPHIE RAMIREZ Facility:[facility] Start: 05-29-2018 End: 05-29-2018 Patient encounter STEPHIE RAMIREZ Facility:[facility] Start: 02-26-2018 Patient encounter STEPHIEKAROLINA RAMIREZ Facility:[facility] Procedures Date Procedure Procedure Detail Performing Clinician Start: 08-19-2024 IR VASCULAR ACCESS T EAM PICC INSERTION RADIO Jean Pierre Kilgore MD Work Phone: Start: 08-18-2024 Spmtry w/vc expirato ry cristina w/wo mxml vol vntj Jean Pierre Kilgore MD Work Phone: Start: 07-06-2024 Hemoglobin A1c/Hemoglobin.total in Blood Stephie Ramirez APRN.ACQUISITION ANALYST Work Phone: Start: 05-07-2024 Mri abdomen w/o & w/contrast material Crystal Valljeo MD Work Phone: Start: 05-05-2024 Cul bact xcpt urine blood/stool aerobic isol Jean Pierre Kilgore MD Work Phone: Start: 05-05-2024 Spmtry w/vc expirato ry cristina w/wo mxml vol vntj Nellblanca Lozano [employer] Start: 03-09-2024 Hemoglobin A1c/Hemoglobin.total in Blood Stephie Ramirez APRN.ACQUISITION ANALYST Work Phone: Start: 02-24-2024 BILIRUBIN TOTAL BLD Chr tyler Bailon MD Work Phone: Start: 02-24-2024 CBC + DIFF Amadou Bailon MD Work Phone: Start: 02-24-2024 Comprehensive metabo lic 2000 panel - Serum or Plasma Amadou Bailon MD Work Phone: Start: 02-24-2024 VANCOMYCIN PRE DOSE Chr tyler Bailon MD Work Phone: Start: 02-17-2024 CBC + DIFF Amadou Bailon MD Work Phone: Start: 02-17-2024 Comprehensive metabo lic 2000 panel - Serum or Plasma Amadou Bailon MD Work Phone: Start: 02-17-2024 VANCOMYCIN LEVEL Boom Bailon MD Work Phone: Start: 02-12-2024 Echocardiography JEAN PIERRE KILGORE Start: 02-12-2024 Antibody screen JEAN PIERRE HOPSON Comment on above: Order Comment: Speci men Type: BLOOD SPECIMENOrdering Facility: [facility] Address: [address] [place] [address] Performed By: #### T SCR ####CC MAIN BLOOD BANKCLIA [id number] [address] Start: 02-05-2024 Antibody screen JEAN PIERRE Tamela MARK ANTHONY Comment on above: Order Comment: Speci men Type: BLOOD SPECIMENOrdering Facility: [facility] Address: [address] [place] [address] Performed By: #### T SCR ####CC MAIN BLOOD BANKCLIA [id number] [address] Start: 07-02-2023 RESPIRATORY PANEL BY RAPID PCR (WITH COVID) Sally Bucur CASING INSPECTOR.ACQUISITION ANALYST Work Phone: Start: 06-04-2023 Cul bact xcpt urine blood/stool aerobic isol Jean Pierre Kilgore MD Work Phone: Start: 06-04-2023 Spmtry w/vc expirato ry cristina w/wo mxml vol vntj She Pete DO Work Phone: Start: 06-02-2023 Radiologic exam abdo men 1 view Sally Bucur CASING INSPECTOR.ACQUISITION ANALYST Work Phone: Start: 03-19-2023 RESPIRATORY PANEL BY RAPID PCR (WITH COVID) She Pete DO Work Phone: Start: 03-05-2023 Spmtry w/vc expirato ry cristina w/wo mxml vol vntj Nell Lozano [facility] Start: 12-04-2022 INFLUENZA VACCINE QUADRIVALENT 6 MO - 64 YRS IM Jean Pierre Kilgore MD Work Phone: Start: 12-04-2022 PFIZER-BIONTECH COVI D-19 BIVALENT BOOSTER VACCINE, AGE 12+ YR Jean Pierre Kilgore MD Work Phone: Start: 12-04-2022 Spmtry w/vc expirato ry cristina w/wo mxml vol vntj She Pete DO Work Phone: Start: 11-26-2022 BILIRUBIN TOTAL BLD [facility] Provider Start: 11-26-2022 CBC + DIFF [facility] Provid er Start: 11-26-2022 Comprehensive metabo lic 2000 panel - Serum or Plasma [facility] Provider Start: 11-26-2022 MAGNESIUM BLD [facility] Provi carla Start: 11-20-2022 Spmtry w/vc expirato ry cristina w/wo mxml vol vntj Sally Bucur CASING INSPECTOR.ACQUISITION ANALYST Work Phone: Start: 11-05-2022 Spmtry w/vc expirato ry cristina w/wo mxml vol vntj Sally Bucur CASING INSPECTOR.ACQUISITION ANALYST Work Phone: Start: 09-11-2022 Spmtry w/vc expirato ry cristina w/wo mxml vol vntj She Ignaciaer DO Work Phone: Start: 08-09-2022 Spmtry w/vc expirato ry cristina w/wo mxml vol vntj Sally Bucur CASING INSPECTOR.ACQUISITION ANALYST Work Phone: Start: 08-06-2022 CBC + DIFF [facility] Provid er Start: 08-06-2022 VANCOMYCIN PRE DOSE [facility] Provider Start: 07-25-2022 Radiologic exam ches t 2 views Forrest Hale MD Work Phone: Start: 2022 Culture fngi mold/ye ast prsmptv oth xcpt blood She Benhanna DO Work Phone: Start: 05-14-2022 Glucose blood reagen t strip Curtis Cisneros MD Work Phone: Start: 05-14-2022 Glucose blood reagen t strip Curtis Cisneros MD Work Phone: Start: 05-14-2022 Glucose blood reagen t strip Curtis Cisneros MD Work Phone: Start: 05-13-2022 Glucose blood reagen t strip Curtis Cisneros MD Work Phone: Start: 05-13-2022 Glucose blood reagen t strip Curtis Cisneros MD Work Phone: Start: 05-13-2022 Ecg routine ecg w/le ast 12 lds i&r only Karlene Chacon DO Work Phone (unformatted): [phone] Start: 05-13-2022 Glucose blood reagen t strip Curtis Cisneros MD Work Phone: Start: 05-13-2022 Glucose blood reagen t strip Curtis Cisneros MD Work Phone: Start: 05-12-2022 Glucose blood reagen t strip Curtis Cisneros MD Work Phone: Start: 05-12-2022 Glucose blood reagen t strip Curtis Cisneros MD Work Phone: Start: 05-12-2022 Radiologic exam ches t single view Alonso Mitchell MD Work Phone: Start: 05-12-2022 Glucose blood reagen t strip Curtis Cisneros MD Work Phone: Start: 05-12-2022 Glucose blood reagen t strip Sabina Larios MD Work Phone: Start: 05-12-2022 CBC W Auto Different ial panel - Blood Karlene Chacon DO Work Phone (unformatted): [phone] Start: 05-12-2022 End: 05-12-2022 Comprehensive metabolic panel Karlene Chacon DO Work Phone (unformatted): [phone] Start: 05-12-2022 Manual Differential panel - Blood Karlene Chacon DO Work Phone (unformatted): [phone] Start: 05-12-2022 Iadna respiratry pro be & rev trnscr 11-24 target Karlene Chacon DO Work Phone (unformatted): [phone] Start: 05-12-2022 Radiologic exam abdo men 2 views Karlene Chacon DO Work Phone (unformatted): [phone] Plan of Treatment Date Care Activity Detail Author Start: 2058 PNEUMOCOCCAL (3 - PPSV23 if available, else PCV20) PNEUMOCOCCAL (3 - PPSV23 if available, else PCV20) [facility] Start: 2058 PNEUMOCOCCAL (3 - PPSV23 or PCV20) PNEUMOCOCCAL (3 - PPSV23 or PCV20) [facility] Start: 2058 Pneumococcal vaccination [facility] Start: 05-12-2026 Chest X-Ray CF Chest X-Ray CF [facility] Start: 03-17-2025 Hepatitis B surface antibody level LDL Cholesterol [facility] Start: 03-09-2025 BP Controlled (<130/80) BP Controlled (<130/80) [facility] Start: 02-02-2025 Diabetic foot examination Diabetic Foot Exam [facility] Start: 01-06-2025 Hemoglobin A1c measurement HbA1C [facility] Start: 11-10-2024 End: 11-10-2024 Patient encounter procedure Pulmonary Medicine Comment on above: Cystic fibrosis with pulmonary manifesta tions (HCC) [E84.0] EST CF w/Sheers + pf t in 3 months-CS stf msg 08-18-24 Start: 10-12-2024 End: 10-12-2024 Patient encounter procedure 10/12/2024 2:00 PM EST Office Visit [facility] [address] [place], [place] [id number] Stephie Ramirez, CASING INSPECTOR.ACQUISITION ANALYST [address] [place], [place] [id number] type 1 diabetes [facility] Comment on above: type 1 diabetes Start: 09-24-2024 BP Controlled (<130/80) BP Controlled (<130/80) [facility] Start: 09-08-2024 Hemoglobin A1c measurement HbA1C [facility] Start: 09-02-2024 End: 09-02-2024 Patient encounter procedure [facility] Comment on above: Cystic fibrosis (HCC) [E84.9] COMP 2022 L / Spine Frax: Sec osteo Prior VFA Start: 09-01-2024 End: 09-01-2024 Patient encounter procedure 09/01/2024 1:00 PM EDT Office Visit Pulmonary Medicine [address] [place] [address] Sally Schneider, CASING INSPECTOR.ACQUISITION ANALYST [address] [place] [address] EST CF w/Sheers + pft on 09/01 at 1pm-CS [facility] 08-18-24 Pulmonary Medicine Comment on above: EST CF w/Sheers + pft on 09/01 at [facility]pm[facility] 08-18-24 Start: 09-01-2024 End: 09-01-2024 ambulatory 09/01/2024 12:15 PM EDT Procedure Pulmonary Medicine [address] [address], Pulm Fct Lab Main [address] [place] [address] Cystic fibrosis (HCC) [E84.9] Pulmonary Medicine Comment on above: Cystic fibrosis (HCC) [E84.9] Start: 08-27-2024 End: 09-03-2024 Basic metabolic 2000 panel - Serum or Plasma BASIC METABOLIC PANEL Lab Routine Hyperkalemia Cystic fibrosis (HCC) Expected: 08/27/2024, Expires: 09/03/2024 [facility] Work Phone: Comment on above: Expected: 08/27/2024, Expires: Start: 08-19-2024 End: 08-19-2024 Patient encounter procedure 08/19/2024 8:00 AM EDT Office Visit [facility] PIC TEAM [address] [place], [place] [id number] CF Copat - schedule at [facility] TEAM Comment on above: CF Copat - schedule at [facility] Start: 08-18-2024 End: 08-18-2024 Patient encounter procedure 08/18/2024 1:45 PM EDT Office Visit Pulmonary Medicine [address] [place], [place] [id number] Jean Pierre Kilgore MD 1 [facility] [address] [place], [place] [id number] CF Pulmonary Medicine Comment on above: CF Start: 08-18-2024 End: 08-18-2024 ambulatory 08/18/2024 1:15 PM EDT Procedure Pulmonary Medicine [address] [place] [address] CF Pulmonary Medicine Comment on above: CF Start: 08-11-2024 3 comp foot exam completed DIABETIC FOOT EXAM [facility] Start: 08-11-2024 Diabetic foot examination Diabetic Foot Exam [facility] Start: 08-05-2024 Hemoglobin A1c measurement HbA1C [facility] Start: 08-01-2024 Covid-19 Vaccine () Covid-19 Vaccine () [facility] Start: 08-01-2024 Covid-19 Vaccine () Covid-19 Vaccine () [facility] Start: 08-01-2024 Influenza vaccination [facility] Start: 07-27-2024 Hepatitis B screening URINE ALBUMIN:CREATININE RATIO [facility] Start: 07-19-2024 End: 07-19-2024 ambulatory 07/19/2024 2:30 PM EDT [facility] G[facility]enterology [address] [address] Tia Lindo MD [address] [place] [address] Liver Disease Gastroenterology Comment on above: Liver Disease Start: 07-19-2024 End: 10-18-2024 [id number] [Mass/volume] in Serum or Plasma ALPHA FETOPROTEIN Lab Routine Other cirrhosis of liver (HCC) Expected: 07/19/2024, Expires: 10/18/2024 [facility] Comment on above: Expected: 07/19/2024, Expires: Start: 07-19-2024 End: 10-18-2024 Cancer Ag 19-9 [Units/volume] in Serum or Plasma CA 19-9 Lab Routine Other cirrhosis of liver (HCC) Expected: 07/19/2024, Expires: 10/18/2024 [facility] Comment on above: Expected: 07/19/2024, Expires: Start: 07-19-2024 End: 10-18-2024 Carcinoembryonic Ag [Mass/volume] in Serum or Plasma CARCINOEMBRYONIC ANTIGEN Lab Routine Other cirrhosis of liver (HCC) Expected: 07/19/2024, Expires: 10/18/2024 [facility] Comment on above: Expected: 07/19/2024, Expires: Start: 07-19-2024 End: 10-18-2024 CBC panel - Blood by Automated count COMPLETE BLOOD COUNT Lab Routine Other cirrhosis of liver (HCC) Expected: 07/19/2024, Expires: 10/18/2024 [facility] Work Phone: Comment on above: Expected: 07/19/2024, Expires: Start: 07-19-2024 End: 10-18-2024 Comprehensive metabolic 2000 panel - Serum or Plasma COMPREHENSIVE METABOLIC PANEL Lab Routine Other cirrhosis of liver (HCC) Expected: 07/19/2024, Expires: 10/18/2024 [facility] Comment on above: Expected: 07/19/2024, Expires: Start: 07-19-2024 End: 10-18-2024 PT panel - Platelet poor plasma by Coagulation assay PROTHROMBIN TIME Lab Routine Other cirrhosis of liver (HCC) Expected: 07/19/2024, Expires: 10/18/2024 [facility] Comment on above: Expected: 07/19/2024, Expires: Start: 07-14-2024 End: 07-14-2024 Patient encounter procedure 07/14/2024 11:00 AM EDT Office Visit Gastroenterology [address] [address] Tia Lindo MD [address] [place] [address] CF-related liver disease Gastroenterology Comment on above: CF-related liver disease Start: 07-06-2024 End: 07-06-2024 Patient encounter procedure 07/06/2024 2:00 PM EDT Office Visit [facility] [address] [place], [place] [id number] Stephie Ramirez, CASING INSPECTOR.ACQUISITION ANALYST [address] [place] [address] type 1 diabetes [facility] Comment on above: type 1 diabetes Start: 07-02-2024 BP CONTROLLED (<130/80) BP CONTROLLED (<130/80) [facility] Start: 06-04-2024 BP CONTROLLED (<130/80) BP CONTROLLED (<130/80) [facility] Start: 05-21-2024 Hemoglobin A1c measurement HbA1C [facility] Start: 05-07-2024 End: 05-07-2024 Patient encounter procedure 05/07/2024 1:40 PM EDT Appointment Radiology [address] [place] [address] Abnormal results of liver function studies [R94.5] Radiology Comment on above: Abnormal results of liver function studi es [R94.5] Start: 05-05-2024 End: 05-05-2024 Patient encounter procedure Pulmonary Medicine Comment on above: Cystic fibrosis with pulmonary manifesta tions (HCC) [E84.0] RT EDUCATION Start: 05-05-2024 End: 05-05-2024 ambulatory 05/05/2024 2:15 PM EDT Procedure Pulmonary Medicine [address] [place] [address] Cystic fibrosis with pulmonary manifestations (HCC) [E84.0] Pulmonary Medicine Comment on above: Cystic fibrosis with pulmonary manifesta tions (HCC) [E84.0] Start: 05-05-2024 End: 08-04-2024 Basic metabolic 2000 panel - Serum or Plasma BASIC METABOLIC PANEL Lab Routine Cystic fibrosis with pulmonary manifestations (HCC) Expected: 05/05/2024, Expires: 08/04/2024 [facility] Comment on above: Expected: 05/05/2024, Expires: Start: 05-05-2024 End: 08-04-2024 Hepatic function 2000 panel - Serum or Plasma HEPATIC FUNCTION PNL Lab Routine Cystic fibrosis with pulmonary manifestations (HCC) 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) Expected: 05/05/2024, Expires: 08/04/2024 [facility] Comment on above: Expected: 05/05/2024, Expires: Start: 04-07-2024 End: 04-07-2024 Patient encounter procedure 04/07/2024 1:30 PM EDT Office Visit Gastroenterology [address] [address] Tia Lindo MD [address] [place] [address] CF-related liver disease Gastroenterology Comment on above: CF-related liver disease Start: 02-27-2024 BP CONTROLLED (<130/80) BP CONTROLLED (<130/80) [facility] Start: 02-25-2024 End: 11-30-2024 25-hydroxyvitamin D3 [Mass/volume] in Serum or Plasma VITAMIN D 25 HYDROXY Lab Routine Cystic fibrosis (HCC) 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 fibrosis with pulmonary manifestations (HCC) Vitamin D deficiency Expected: 02/25/2024 (Approximate), Expires: 11/30/2024 [facility] Work Phone: Comment on above: Expected: 02/25/2024 (Approximate), Expi res: 11/30/2024 Start: 02-25-2024 End: 11-30-2024 Alpha tocopherol [Mass/volume] in Serum or Plasma VITAMIN E/TOCOPHEROL Lab Routine Cystic fibrosis (HCC) 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 fibrosis with pulmonary manifestations (HCC) Vitamin D deficiency Expected: 02/25/2024 (Approximate), Expires: 11/30/2024 [facility] Work Phone: Comment on above: Expected: 02/25/2024 (Approximate), Expi res: 11/30/2024 Start: 02-25-2024 End: 11-30-2024 C reactive protein [Mass/volume] in Serum or Plasma C-REACTIVE PROTEIN (CRP) Lab Routine Cystic fibrosis (HCC) 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 fibrosis with pulmonary manifestations (HCC) Vitamin D deficiency Expected: 02/25/2024 (Approximate), Expires: 11/30/2024 [facility] Work Phone: Comment on above: Expected: 02/25/2024 (Approximate), Expi res: 11/30/2024 Start: 02-25-2024 End: 11-30-2024 CBC W Auto Differential panel - Blood CBC + DIFF Lab Routine Cystic fibrosis (HCC) 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 fibrosis with pulmonary manifestations (HCC) Vitamin D deficiency Expected: 02/25/2024 (Approximate), Expires: 11/30/2024 [facility] Work Phone: Comment on above: Expected: 02/25/2024 (Approximate), Expi res: 11/30/2024 Start: 02-25-2024 End: 11-30-2024 Comprehensive metabolic 2000 panel - Serum or Plasma COMP METABOLIC PANEL Lab Routine Cystic fibrosis (HCC) 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 fibrosis with pulmonary manifestations (HCC) Vitamin D deficiency Expected: 02/25/2024 (Approximate), Expires: 11/30/2024 [facility] Work Phone: Comment on above: Expected: 02/25/2024 (Approximate), Expi res: 11/30/2024 Start: 02-25-2024 End: 11-30-2024 Erythrocyte sedimentation rate SED RATE [place] Lab Routine Cystic fibrosis (HCC) 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 fibrosis with pulmonary manifestations (HCC) Vitamin D deficiency Expected: 02/25/2024 (Approximate), Expires: 11/30/2024 [facility] Work Phone: Comment on above: Expected: 02/25/2024 (Approximate), Expi res: 11/30/2024 Start: 02-25-2024 End: 11-30-2024 Gamma glutamyl transferase [Enzymatic activity/volume] in Serum or Plasma GGT BLD Lab Routine Cystic fibrosis (HCC) 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 fibrosis with pulmonary manifestations (HCC) Vitamin D deficiency Expected: 02/25/2024 (Approximate), Expires: 11/30/2024 [facility] Work Phone: Comment on above: Expected: 02/25/2024 (Approximate), Expi res: 11/30/2024 Start: 02-25-2024 End: 11-30-2024 IgE [Units/volume] in Serum or Plasma IGE BLD Lab Routine Cystic fibrosis (HCC) 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 fibrosis with pulmonary manifestations (HCC) Vitamin D deficiency Expected: 02/25/2024 (Approximate), Expires: 11/30/2024 [facility] Work Phone: Comment on above: Expected: 02/25/2024 (Approximate), Expi res: 11/30/2024 Start: 02-25-2024 End: 11-30-2024 Lipid 1996 panel - Serum or Plasma LIPID PANEL BASIC Lab Routine Cystic fibrosis (HCC) 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 fibrosis with pulmonary manifestations (HCC) Vitamin D deficiency Expected: 02/25/2024 (Approximate), Expires: 11/30/2024 [facility] Work Phone: Comment on above: Expected: 02/25/2024 (Approximate), Expi res: 11/30/2024 Start: 02-25-2024 End: 11-30-2024 Magnesium [Mass/volume] in Serum or Plasma MAGNESIUM BLD Lab Routine Cystic fibrosis (HCC) 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 fibrosis with pulmonary manifestations (HCC) Vitamin D deficiency Expected: 02/25/2024 (Approximate), Expires: 11/30/2024 [facility] Work Phone: Comment on above: Expected: 02/25/2024 (Approximate), Expi res: 11/30/2024 Start: 02-25-2024 End: 11-30-2024 PT panel - Platelet poor plasma by Coagulation assay PROTHROMBIN TIME/PT Lab Routine Cystic fibrosis (HCC) 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 fibrosis with pulmonary manifestations (HCC) Vitamin D deficiency Expected: 02/25/2024 (Approximate), Expires: 11/30/2024 [facility] Work Phone: Comment on above: Expected: 02/25/2024 (Approximate), Expi res: 11/30/2024 Start: 02-25-2024 End: 11-30-2024 Retinol [Mass/volume] in Serum or Plasma VITAMIN A/RETINOL Lab Routine Cystic fibrosis (HCC) 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 fibrosis with pulmonary manifestations (HCC) Vitamin D deficiency Expected: 02/25/2024 (Approximate), Expires: 11/30/2024 [facility] Work Phone: Comment on above: Expected: 02/25/2024 (Approximate), Expi res: 11/30/2024 Start: 02-18-2024 End: 05-19-2024 CREATININE BLD CREATININE BLD Lab Routine Infection Expected: 02/18/2024, Expires: 05/19/2024 [facility] Work Phone: Comment on above: Expected: 02/18/2024, Expires: 4 Start: 02-18-2024 End: 05-19-2024 Vancomycin [Mass/volume] in Serum or Plasma --random VANCOMYCIN Lab Routine Infection Expected: 02/18/2024, Expires: 05/19/2024 [facility] Work Phone: Comment on above: Expected: 02/18/2024, Expires: 4 Start: 02-16-2024 End: 05-17-2024 CELIAC COMPREHENSIVE PANEL CELIAC COMPREHENSIVE PANEL Lab Routine 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) Expected: 02/16/2024, Expires: 05/17/2024 [facility] Work Phone: Comment on above: Expected: 02/16/2024, Expires: 4 Start: 01-25-2024 Dexa Scan CF Dexa Scan CF [facility] Start: 01-07-2024 End: 11-30-2024 25-hydroxyvitamin D3 [Mass/volume] in Serum or Plasma VITAMIN D 25 HYDROXY Lab Routine Cystic fibrosis (HCC) 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) 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) Dietary counseling and surveillance Vitamin D deficiency Expected: 01/07/2024 (Approximate), Expires: 11/30/2024 [facility] Work Phone: Comment on above: Expected: 01/07/2024 (Approximate), Expi res: 11/30/2024 Start: 01-07-2024 End: 11-30-2024 Alpha tocopherol [Mass/volume] in Serum or Plasma VITAMIN E/TOCOPHEROL Lab Routine Cystic fibrosis (HCC) 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) 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) Dietary counseling and surveillance Vitamin D deficiency Expected: 01/07/2024 (Approximate), Expires: 11/30/2024 [facility] Work Phone: Comment on above: Expected: 01/07/2024 (Approximate), Expi res: 11/30/2024 Start: 01-07-2024 End: 11-30-2024 C reactive protein [Mass/volume] in Serum or Plasma C-REACTIVE PROTEIN (CRP) Lab Routine Cystic fibrosis (HCC) 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) 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) Dietary counseling and surveillance Vitamin D deficiency Expected: 01/07/2024 (Approximate), Expires: 11/30/2024 [facility] Work Phone: Comment on above: Expected: 01/07/2024 (Approximate), Expi res: 11/30/2024 Start: 01-07-2024 End: 11-30-2024 CBC W Auto Differential panel - Blood CBC + DIFF Lab Routine Cystic fibrosis (HCC) 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) 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) Dietary counseling and surveillance Vitamin D deficiency Expected: 01/07/2024 (Approximate), Expires: 11/30/2024 [facility] Work Phone: Comment on above: Expected: 01/07/2024 (Approximate), Expi res: 11/30/2024 Start: 01-07-2024 End: 11-30-2024 Comprehensive metabolic 2000 panel - Serum or Plasma COMP METABOLIC PANEL Lab Routine Cystic fibrosis (HCC) 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) 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) Dietary counseling and surveillance Vitamin D deficiency Expected: 01/07/2024 (Approximate), Expires: 11/30/2024 [facility] Work Phone: Comment on above: Expected: 01/07/2024 (Approximate), Expi res: 11/30/2024 Start: 01-07-2024 End: 11-30-2024 Erythrocyte sedimentation rate SED RATE [place] Lab Routine Cystic fibrosis (HCC) 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) 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) Dietary counseling and surveillance Vitamin D deficiency Expected: 01/07/2024 (Approximate), Expires: 11/30/2024 [facility] Work Phone: Comment on above: Expected: 01/07/2024 (Approximate), Expi res: 11/30/2024 Start: 01-07-2024 End: 11-30-2024 Gamma glutamyl transferase [Enzymatic activity/volume] in Serum or Plasma GGT BLD Lab Routine Cystic fibrosis (HCC) 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) 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) Dietary counseling and surveillance Vitamin D deficiency Expected: 01/07/2024 (Approximate), Expires: 11/30/2024 [facility] Work Phone: Comment on above: Expected: 01/07/2024 (Approximate), Expi res: 11/30/2024 Start: 01-07-2024 End: 11-30-2024 Hemoglobin A1c in Blood HGB A1C Lab Routine Cystic fibrosis (HCC) 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) 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) Dietary counseling and surveillance Vitamin D deficiency Expected: 01/07/2024 (Approximate), Expires: 11/30/2024 [facility] Work Phone: Comment on above: Expected: 01/07/2024 (Approximate), Expi res: 11/30/2024 Start: 01-07-2024 End: 11-30-2024 IgE [Units/volume] in Serum or Plasma IGE BLD Lab Routine Cystic fibrosis (HCC) 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) 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) Dietary counseling and surveillance Vitamin D deficiency Expected: 01/07/2024 (Approximate), Expires: 11/30/2024 [facility] Work Phone: Comment on above: Expected: 01/07/2024 (Approximate), Expi res: 11/30/2024 Start: 01-07-2024 End: 11-30-2024 Lipid 1996 panel - Serum or Plasma LIPID PANEL BASIC Lab Routine Cystic fibrosis (HCC) 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) 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) Dietary counseling and surveillance Vitamin D deficiency Expected: 01/07/2024 (Approximate), Expires: 11/30/2024 [facility] Work Phone: Comment on above: Expected: 01/07/2024 (Approximate), Expi res: 11/30/2024 Start: 01-07-2024 End: 11-30-2024 Magnesium [Mass/volume] in Serum or Plasma MAGNESIUM BLD Lab Routine Cystic fibrosis (HCC) 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) 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) Dietary counseling and surveillance Vitamin D deficiency Expected: 01/07/2024 (Approximate), Expires: 11/30/2024 [facility] Work Phone: Comment on above: Expected: 01/07/2024 (Approximate), Expi res: 11/30/2024 Start: 01-07-2024 End: 11-30-2024 PT panel - Platelet poor plasma by Coagulation assay PROTHROMBIN TIME/PT Lab Routine Cystic fibrosis (HCC) 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) 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) Dietary counseling and surveillance Vitamin D deficiency Expected: 01/07/2024 (Approximate), Expires: 11/30/2024 [facility] Work Phone: Comment on above: Expected: 01/07/2024 (Approximate), Expi res: 11/30/2024 Start: 01-07-2024 End: 11-30-2024 Retinol [Mass/volume] in Serum or Plasma VITAMIN A/RETINOL Lab Routine Cystic fibrosis (HCC) 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) Diabetes mellitus related to CF (cystic fibrosis) ([facility]) Dietary counseling and surveillance Vitamin D deficiency Expected: 01/07/2024 (Approximate), Expires: 11/30/2024 [facility] Work Phone: Comment on above: Expected: 01/07/2024 (Approximate), Expi res: 11/30/2024 Start: 01-03-2024 Hemoglobin A1c measurement HbA1C [facility] Start: 01-03-2024 Hemoglobin A1c/Hemoglobin.total in Blood HBA1C [facility] Start: 12-19-2023 Glaucoma screening Dilated Retinal Exam [facility] Start: 12-19-2023 Hepatitis C antibody, confirmatory test DILATED RETINAL EXAM [facility] Start: 11-05-2023 3 comp foot exam completed DIABETIC FOOT EXAM [facility] Start: 09-07-2023 Hemoglobin A1c/Hemoglobin.total in Blood HBA1C [facility] Start: 08-21-2023 End: 10-21-2023 Comprehensive metabolic 2000 panel - Serum or Plasma COMP METABOLIC PANEL Lab Routine Cystic fibrosis ([facility]) Expected: 08/21/2023, Expires: 10/21/2023 [facility] Work Phone: Comment on above: Expected: 08/21/2023, Expires: 3 Start: 08-18-2023 End: 10-18-2023 Ferritin [Mass/volume] in Serum or Plasma [facility] [facility] Work Phone: Comment on above: Expected: 08/18/2023, Expires: 3 Start: 08-18-2023 End: 10-18-2023 Folate [Mass/volume] in Serum or Plasma [facility] Work Phone: Comment on above: Expected: 08/18/2023, Expires: 3 Start: 08-18-2023 End: 10-18-2023 Iron and Iron binding capacity panel - Serum or Plasma [facility] Work Phone: Comment on above: Expected: 08/18/2023, Expires: 3 Start: 08-18-2023 End: 10-18-2023 Methylmalonate [Moles/volume] in Serum or Plasma [facility] Work Phone: Comment on above: Expected: 08/18/2023, Expires: 3 Start: 08-18-2023 End: 10-18-2023 Transferrin receptor.soluble [Mass/volume] in Serum or Plasma [facility] Work Phone: Comment on above: Expected: 08/18/2023, Expires: 3 Start: 08-01-2023 Covid-19 Vaccine () Covid-19 Vaccine () [facility] Start: 08-01-2023 Influenza vaccination [facility] Start: 07-28-2023 Hepatitis B screening URINE ALBUMIN:CREATININE RATIO [facility] Start: 05-14-2023 CMP CF CMP CF [facility] Start: 05-13-2023 CBC CF CBC [facility] Start: 05-12-2023 Urinalysis CF Urinalysis [facility] Start: 04-07-2023 End: 06-07-2023 Thyrotropin [Units/volume] in Serum or Plasma TSH BLD Lab Routine Type 1 diabetes mellitus with hyperglycemia (HCC) Expected: 04/07/2023, Expires: 06/07/2023 [facility] Work Phone: Comment on above: Expected: 04/07/2023, Expires: 3 Start: 02-26-2023 End: 04-28-2023 Comprehensive metabolic 2000 panel - Serum or Plasma [facility] Work Phone: Comment on above: Expected: 02/26/2023, Expires: 3 Start: 02-15-2023 Hepatitis C antibody, confirmatory test DILATED RETINAL EXAM [facility] Start: 02-03-2023 Hemoglobin A1c/Hemoglobin.total in Blood HBA1C [facility] Start: 12-20-2022 End: 02-19-2023 Thyrotropin [Units/volume] in Serum or Plasma TSH BLD Lab Routine Type 1 diabetes mellitus with hyperglycemia (HCC) Expected: 12/20/2022, Expires: 02/19/2023 [facility] Work Phone: Comment on above: Expected: 12/20/2022, Expires: 3 Start: 12-06-2022 Vitamin A CF Vitamin A [facility] Start: 12-06-2022 Vitamin D 25 Hydroxy CF Vitamin D 25 Hydroxy CF [facility] Start: 12-06-2022 Vitamin E CF Vitamin E CF [facility] Start: 12-01-2022 DEPRESSION ASSESSMENT DEPRESSION ASSESSMENT [facility] Start: 11-29-2022 End: 01-29-2023 Comprehensive metabolic 2000 panel - Serum or Plasma COMP METABOLIC PANEL Lab Routine Cystic fibrosis with pulmonary manifestations (HCC) Expected: 11/29/2022, Expires: 01/29/2023 [facility] Work Phone: Comment on above: Expected: 11/29/2022, Expires: 3 Start: 11-20-2022 End: 01-20-2023 Phosphate [Mass/volume] in Serum or Plasma [facility] Work Phone: Comment on above: Expected: 11/20/2022, Expires: 3 Start: 11-18-2022 End: 01-18-2023 CBC W Auto Differential panel - Blood CBC + DIFF Lab Routine Cystic fibrosis with pulmonary manifestations (HCC) Expected: 11/18/2022, Expires: 01/18/2023 [facility] Work Phone: Comment on above: Expected: 11/18/2022, Expires: 3 Start: 11-18-2022 End: 01-18-2023 Comprehensive metabolic 2000 panel - Serum or Plasma COMP METABOLIC PANEL Lab Routine Cystic fibrosis with pulmonary manifestations (HCC) Expected: 11/18/2022, Expires: 01/18/2023 [facility] Work Phone: Comment on above: Expected: 11/18/2022, Expires: 3 Start: 11-18-2022 End: 01-18-2023 Hepatic function 2000 panel - Serum or Plasma HEPATIC FUNCTION PNL Lab Routine Cystic fibrosis with pulmonary manifestations (HCC) Expected: 11/18/2022, Expires: 01/18/2023 [facility] Work Phone: Comment on above: Expected: 11/18/2022, Expires: 3 Start: 11-18-2022 End: 01-18-2023 Magnesium [Mass/volume] in Serum or Plasma MAGNESIUM BLD Lab Routine Cystic fibrosis with pulmonary manifestations (HCC) Expected: 11/18/2022, Expires: 01/18/2023 [facility] Work Phone: Comment on above: Expected: 11/18/2022, Expires: 3 Start: 10-17-2022 Hemoglobin A1c/Hemoglobin.total in Blood HBA1C [facility] Start: 09-11-2022 End: 11-11-2022 Comprehensive metabolic 2000 panel - Serum or Plasma [facility] Work Phone: Comment on above: Expected: 09/11/2022, Expires: 2 Start: 09-10-2022 3 comp foot exam completed DIABETIC FOOT EXAM [facility] Start: 08-09-2022 End: 10-09-2022 Comprehensive metabolic 2000 panel - Serum or Plasma COMP METABOLIC PANEL Lab Routine Cystic fibrosis (HCC) Expected: 08/09/2022, Expires: 10/09/2022 [facility] Work Phone: Comment on above: Expected: 08/09/2022, Expires: 2 Start: 08-01-2022 FLU (Season Ended) FLU (Season Ended) [facility] Start: 08-01-2022 Influenza vaccination [facility] Start: 2022 End: 09-16-2022 Alpha tocopherol [Mass/volume] in Serum or Plasma [facility] Work Phone: Comment on above: Expected: 2022, Expires: 2 Start: 2022 End: 09-16-2022 Retinol [Mass/volume] in Serum or Plasma [facility] Work Phone: Comment on above: Expected: 2022, Expires: 2 Start: 06-23-2022 Hemoglobin A1c/Hemoglobin.total in Blood HBA1C [facility] Start: 05-29-2022 Tetanus Diphtheria and Pertussis Vaccines (7 - Td or Tdap) Tetanus Diphtheria and Pertussis Vaccines (7 - Td or Tdap) [facility] Start: 05-29-2022 Urine microalbumin profile [facility] Start: 03-19-2022 GGT CF GGT CF [facility] Start: 03-19-2022 HbA1c CF HbA1c CF [facility] Start: 03-19-2022 IgE CF IgE CF [facility] Start: 03-19-2022 Lipid Panel CF Lipid Panel CF [facility] Start: 03-19-2022 PT/INR CF PT/INR CF [facility] Start: 03-19-2022 Urine Microalbumin CF Urine Microalbumin CF [facility] Start: 02-12-2022 Hepatitis B screening URINE ALBUMIN:CREATININE RATIO [facility] Start: 02-12-2022 Hepatitis B surface antibody level LDL CHOLESTEROL [facility] Start: 01-30-2022 COVID-19 VACCINE (4 - Booster for Pfizer series) COVID-19 VACCINE (4 - Booster for Pfizer series) [facility] Start: 12-01-2021 DEPRESSION ASSESSMENT DEPRESSION ASSESSMENT [facility] Start: 11-03-2019 Testosterone Level CF Testosterone Level [facility] Start: 2012 HEPATITIS A (1 of 2 - Risk 2-dose series) HEPATITIS A (1 of 2 - Risk 2-dose series) [facility] Start: 2012 Hepatitis A Vaccine (1 of 2 - Risk 2-dose series) Hepatitis A Vaccine (1 of 2 - Risk 2-dose series) [facility] Start: 2011 ANNUAL PCP TEAM CHRONIC DISEASE VISIT ANNUAL PCP TEAM CHRONIC DISEASE VISIT [facility] Start: 2011 BP CONTROLLED (<130/80) BP CONTROLLED (<130/80) [facility] Start: 2011 HEPATITIS C SCREENING HEPATITIS C SCREENING [facility] Start: 2011 HIV SCREENING HIV SCREENING [facility] Start: 2011 HIV screening HIV Screening [facility] Start: 2009 MenB (1 of 2 - MenB 2-Dose Series) MenB (1 of 2 - MenB 2-Dose Series) [facility] Start: 2009 ONE PNEUMOVAX PRIOR TO AGE 65 ONE PNEUMOVAX PRIOR TO AGE 65 [facility] Start: 2005 Adult depression screening assessment DEPRESSION SCREENING [facility] Start: 07-11-1999 Varicella (1 of 2 - 2-dose childhood series) Varicella (1 of 2 - 2-dose childhood series) [facility] Start: 1994 HEPATITIS A (1 of 2 - Risk 2-dose series) HEPATITIS A (1 of 2 - Risk 2-dose series) [facility] AFB CULTURE/STAIN CY STIC FIBROSIS AFB CULTURE/STAIN CYSTIC FIBROSIS Microbiology Routine Cystic fibrosis with pulmonary manifestations (HCC) 2022 9:39 AM EDT [facility] Work Phone: AFB CULTURE/STAIN CY STIC FIBROSIS AFB CULTURE/STAIN CYSTIC FIBROSIS Microbiology Routine CF (cystic fibrosis) ([facility]) 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 Ordered: 09/11/2022 [facility] Work Phone: Comment on above: Ordered: 09/11/2022 AFB CULTURE/STAIN CY STIC FIBROSIS AFB CULTURE/STAIN CYSTIC FIBROSIS Microbiology Routine Cystic fibrosis ([facility]) Ordered: 02/18/2024 [facility] Work Phone: Comment on above: Ordered: 02/18/2024 Bacteria identified in Sputum by Cystic fibrosis respiratory culture CYSTIC FIBROSIS RESPIRATORY CULTURE Microbiology Routine Cystic fibrosis with pulmonary manifestations (HCC) 2022 9:39 AM EDT [facility] Work Phone: Bacteria identified in Sputum by Cystic fibrosis respiratory culture CYSTIC FIBROSIS RESPIRATORY CULTURE Microbiology Routine CF (cystic fibrosis) ([facility]) 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 Ordered: 09/11/2022 [facility] Work Phone: Comment on above: Ordered: 09/11/2022 Bacteria identified in Sputum by Cystic fibrosis respiratory culture CYSTIC FIBROSIS RESPIRATORY CULTURE Microbiology Routine Cystic fibrosis with pulmonary manifestations (HCC) 03/05/2023 5:02 PM EDT [facility] Work Phone: Bacteria identified in Sputum by Cystic fibrosis respiratory culture CYSTIC FIBROSIS RESPIRATORY CULTURE Microbiology Routine Cystic fibrosis with pulmonary manifestations (HCC) 06/04/2023 4:27 PM EDT [facility] Work Phone: Bacteria identified in Sputum by Cystic fibrosis respiratory culture CYSTIC FIBROSIS RESPIRATORY CULTURE Microbiology Routine Cystic fibrosis (HCC) Ordered: 02/18/2024 [facility] Work Phone: Comment on above: Ordered: 02/18/2024 Bacteria identified in Sputum by Cystic fibrosis respiratory culture CYSTIC FIBROSIS RESPIRATORY CULTURE Microbiology Routine Cystic fibrosis with pulmonary exacerbation (HCC) 08/18/2024 3:54 PM EDT [facility] Work Phone: End: 11-29-2023 CBC W Auto Differential panel - Blood [facility] Work Phone: Comment on above: 99 Occurrences starting 11/29/2022 until 11/29/2023 2x per week for 6 Oc currences starting 11/29/2022 until 11/29/2023, 1 completed End: 08-18-2025 CBC W Auto Differential panel - Blood COMPLETE BLOOD COUNT AND DIFFERENTIAL Lab Routine Cystic fibrosis with pulmonary exacerbation (HCC) 2x per week for 10 Occurrences starting 08/18/2024 until 08/18/2025 [facility] Work Phone: Comment on above: 2x per week for 10 Occurrences starting 08/18/2024 until 08/18/2025 CBC W Ordered Manual Differential panel - Blood PATHOLOGIST INTERPRETATION WITH CBC AND DIFF Lab Routine 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 Routine times: 0600; 1100; 1400; 1900; 2200 for 1 Occurrences starting 05/12/2022 until 05/12/2022 [facility] Comment on above: For lab collect this frequency defaults to the next routine lab draw time. Routine times: 0600; 1100; 1400; 1900; 2200 for 1 Occurrences starting 05/12/2022 until 05/12/2022 End: 11-29-2023 Comprehensive metabolic 2000 panel - Serum or Plasma [facility] Work Phone: Comment on above: 99 Occurrences starting 11/29/2022 until 11/29/2023 2x per week for 6 Oc currences starting 11/29/2022 until 11/29/2023, 1 completed End: 08-18-2025 Comprehensive metabolic 2000 panel - Serum or Plasma COMPREHENSIVE METABOLIC PANEL Lab Routine Cystic fibrosis with pulmonary exacerbation (HCC) 2x per week for 10 Occurrences starting 08/18/2024 until 08/18/2025 [facility] Comment on above: 2x per week for 10 Occurrences starting 08/18/2024 until 08/18/2025 Continuous glucose monitoring analysis i&r GLUCOSE MONITOR, 72 HOUR, PHYS INTERP Procedures Routine Type 1 diabetes mellitus with hyperglycemia (HCC) Ordered: 12/22/2022 [facility] Work Phone: Comment on above: Ordered: 12/22/2022 Continuous glucose monitoring analysis i&r GLUCOSE MONITOR, 72 HOUR, PHYS INTERP Procedures Routine Type 1 diabetes mellitus with hyperglycemia (HCC) Ordered: 04/07/2023 [facility] Work Phone: Comment on above: Ordered: 04/07/2023 Continuous glucose monitoring analysis i&r GLUCOSE MONITOR, 72 HOUR, PHYS INTERP Procedures Routine Type 1 diabetes mellitus with hyperglycemia (HCC) Ordered: 08/11/2023 [facility] Work Phone: Comment on above: Ordered: 08/11/2023 Continuous glucose monitoring analysis i&r GLUCOSE MONITOR, 72 HOUR, PHYS INTERP Procedures Routine Type 1 diabetes mellitus with hyperglycemia (HCC) Ordered: 03/09/2024 [facility] Work Phone: Comment on above: Ordered: 03/09/2024 Continuous glucose monitoring analysis i&r GLUCOSE MONITOR, 72 HOUR, PHYS INTERP Procedures Routine Type 1 diabetes mellitus with hyperglycemia (HCC) Ordered: 07/06/2024 [facility] Comment on above: Ordered: 07/06/2024 DDI VIBRATION CONTRO LLED TRANSIENT ELASTOGRAPHY (VCTE) DDI VIBRATION CONTROLLED TRANSIENT ELASTOGRAPHY (VCTE) Procedures Routine Cystic fibrosis with liver disease (HCC) Ordered: 07/21/2022 [facility] Work Phone: Comment on above: Ordered: 07/21/2022 End: 08-20-2023 Dxa bone density study axial skeleton DXA-AXIAL SKELETON WITH VFA Radiology Routine Cystic fibrosis with pulmonary manifestations (HCC) 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) Chronic pansinusitis Low weight Encounter for screening for osteoporosis 1 Occurrences starting 07/21/2022 until 08/20/2023 [facility] Work Phone: Comment on above: 1 Occurrences starting 07/21/2022 until 08/20/2023 End: 08-30-2024 Dxa bone density study axial skeleton DXA-AXIAL SKELETON WITH VFA Radiology Routine Osteoporosis without current pathological fracture, unspecified osteoporosis type 1 Occurrences starting 08/01/2023 until 08/30/2024 [facility] Work Phone: Comment on above: 1 Occurrences starting 08/01/2023 until 08/30/2024 Dxa bone density rut dy axial skeleton DXA-AXIAL SKELETON WITH VFA Radiology Routine Osteoporosis without current pathological fracture, unspecified osteoporosis type 09/24/2023 9:35 AM EDT [facility] Work Phone: End: 06-04-2025 DXA Skeletal system.axial Views for bone density and vertebral fracture DXA-AXIAL SKELETON WITH VFA Radiology Routine Cystic fibrosis (HCC) 1 Occurrences starting 05/05/2024 until 06/04/2025 [facility] Work Phone: Comment on above: 1 Occurrences starting 05/05/2024 until 06/04/2025 End: 07-21-2023 Echocardiography ECHO Cardiology Routine Cystic fibrosis with pulmonary manifestations (HCC) 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) Chronic pansinusitis Low weight Encounter for screening for osteoporosis 1 Occurrences starting 07/21/2022 until 07/21/2023 [facility] Work Phone: Comment on above: 1 Occurrences starting 07/21/2022 until 07/21/2023 Hemoglobin A1c/Hemoglobin.total in Blood HEMOGLOBIN A1C (POC) Lab Routine Type 1 diabetes mellitus with hyperglycemia (HCC) Ordered: 03/09/2024 [facility] Work Phone: Comment on above: Ordered: 03/09/2024 Hemoglobin A1c/Hemoglobin.total in Blood HEMOGLOBIN A1C (POC) Lab Routine Type 1 diabetes mellitus with hyperglycemia (HCC) Ordered: 07/06/2024 [facility] Work Phone: Comment on above: Ordered: 07/06/2024 End: 11-29-2023 Magnesium [Mass/volume] in Serum or Plasma [facility] Work Phone: Comment on above: 99 Occurrences starting 11/29/2022 until 11/29/2023 2x per week for 6 Oc currences starting 11/29/2022 until 11/29/2023, 1 completed End: 08-18-2025 Magnesium [Mass/volume] in Serum or Plasma MAGNESIUM Lab Routine Cystic fibrosis with pulmonary exacerbation ([facility]) 2x per week for 10 Occurrences starting 08/18/2024 until 08/18/2025 [facility] Comment on above: 2x per week for 10 Occurrences starting 08/18/2024 until 08/18/2025 Microorganism identi fied in Unspecified specimen by Culture FUNGAL CULT + SMEAR Microbiology Routine Cystic fibrosis with pulmonary manifestations ([facility]) 2022 9:39 AM EDT [facility] Work Phone: Microorganism identi fied in Unspecified specimen by Culture FUNGAL CULT + SMEAR Microbiology Routine CF (cystic fibrosis) ([facility]) 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 Routine times: 0600; 1100; 1400; 1900; 2200 for 1 Occurrences starting 05/12/2022 until 05/12/2022 [facility] Comment on above: For lab collect this frequency defaults to the next routine lab draw time. Routine times: 0600; 1100; 1400; 1900; 2200 for 1 Occurrences starting 05/12/2022 until 05/12/2022 End: 04-04-2023 SPIROMETRY BASELINE ONLY SPIROMETRY BASELINE ONLY PFT Routine Cystic fibrosis with pulmonary manifestations (HCC) 1 Occurrences starting 03/12/2022 until 04/04/2023 [facility] Work Phone: Comment on above: 1 Occurrences starting 03/12/2022 until 04/04/2023 End: 08-20-2023 SPIROMETRY BASELINE ONLY SPIROMETRY BASELINE ONLY PFT Routine Cystic fibrosis with pulmonary manifestations (HCC) 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) 1 Occurrences starting 07/21/2022 until 08/20/2023 [facility] Work Phone: Comment on above: 1 Occurrences starting 07/21/2022 until 08/20/2023 SPIROMETRY BASELINE ONLY SPIROME TRY BASELINE ONLY PFT Routine Cystic fibrosis (HCC) 08/09/2022 10:00 AM [facility] Work Phone: SPIROMETRY BASELINE ONLY SPIROME TRY BASELINE ONLY PFT Routine Cystic fibrosis with pulmonary manifestations (HCC) 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) 09/11/2022 8:38 AM [facility] Work Phone: End: 09-27-2023 SPIROMETRY BASELINE ONLY SPIROMETRY BASELINE ONLY PFT Routine CF (cystic fibrosis) (HCC) 1 Occurrences starting 08/28/2022 until 09/27/2023 [facility] Work Phone: Comment on above: 1 Occurrences starting 08/28/2022 until 09/27/2023 SPIROMETRY BASELINE ONLY SPIROME TRY BASELINE ONLY PFT Routine Cystic fibrosis (HCC) 11/05/2022 11:28 AM [facility] Work Phone: End: 12-11-2023 SPIROMETRY BASELINE ONLY SPIROMETRY BASELINE ONLY PFT Routine Cystic fibrosis (HCC) 1 Occurrences starting 11/11/2022 until 12/11/2023 [facility] Work Phone: Comment on above: 1 Occurrences starting 11/11/2022 until 12/11/2023 End: 12-20-2023 SPIROMETRY BASELINE ONLY SPIROMETRY BASELINE ONLY PFT Routine Cystic fibrosis with pulmonary manifestations (HCC) Cystic fibrosis with pulmonary exacerbation (HCC) 1 Occurrences starting 11/20/2022 until 12/20/2023 [facility] Work Phone: Comment on above: 1 Occurrences starting 11/20/2022 until 12/20/2023 SPIROMETRY BASELINE ONLY SPIROME TRY BASELINE ONLY PFT Routine CF (cystic fibrosis) (HCC) 12/04/2022 3:26 PM EST [facility] Work Phone: End: 04-01-2024 SPIROMETRY BASELINE ONLY SPIROMETRY BASELINE ONLY PFT Routine Cystic fibrosis with pulmonary manifestations (HCC) 1 Occurrences starting 03/03/2023 until 04/01/2024 [facility] Work Phone: Comment on above: 1 Occurrences starting 03/03/2023 until 04/01/2024 End: 04-08-2024 SPIROMETRY BASELINE ONLY SPIROMETRY BASELINE ONLY PFT Routine Cystic fibrosis (HCC) 1 Occurrences starting 03/10/2023 until 04/08/2024 [facility] Work Phone: Comment on above: 1 Occurrences starting 03/10/2023 until 04/08/2024 End: 04-17-2024 SPIROMETRY BASELINE ONLY SPIROMETRY BASELINE ONLY PFT Routine Cystic fibrosis (HCC) 1 Occurrences starting 03/19/2023 until 04/17/2024 [facility] Work Phone: Comment on above: 1 Occurrences starting 03/19/2023 until 04/17/2024 SPIROMETRY BASELINE ONLY SPIROME TRY BASELINE ONLY PFT Routine Cystic fibrosis (HCC) 06/04/2023 3:30 PM EDT [facility] Work Phone: End: 07-03-2024 SPIROMETRY BASELINE ONLY SPIROMETRY BASELINE ONLY PFT Routine Cystic fibrosis with pulmonary manifestations (HCC) 1 Occurrences starting 06/04/2023 until 07/03/2024 [facility] Work Phone: Comment on above: 1 Occurrences starting 06/04/2023 until 07/03/2024 End: 10-23-2024 SPIROMETRY BASELINE ONLY SPIROMETRY BASELINE ONLY PFT Routine Cystic fibrosis with pulmonary manifestations (HCC) 1 Occurrences starting 09/24/2023 until 10/23/2024 [facility] Work Phone: Comment on above: 1 Occurrences starting 09/24/2023 until 10/23/2024 SPIROMETRY BASELINE ONLY SPIROME TRY BASELINE ONLY PFT Routine Cystic fibrosis with pulmonary manifestations (HCC) 05/05/2024 2:52 PM EDT [facility] Work Phone: End: 06-04-2025 SPIROMETRY BASELINE ONLY [facility] Comment on above: 1 Occurrences starting 05/05/2024 until 06/04/2025 SPIROMETRY BASELINE ONLY SPIROME TRY BASELINE ONLY PFT Routine Cystic fibrosis with pulmonary manifestations (HCC) 08/18/2024 1:10 PM EDT [facility] Work Phone: End: 05-12-2022 Spirometry- on admission Spirometry- on admission PFT Routine One Time for 1 Occurrences starting 05/12/2022 until 05/12/2022 [facility] Work Phone: Comment on above: One Time for 1 Occurrences starting 05/01 until 05/12/2022 End: 08-20-2023 Us abdominal real time w/image limited US ABD RT UPPER QUADRANT Radiology Routine Cystic fibrosis with pulmonary manifestations (HCC) 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) Chronic pansinusitis Low weight Encounter for screening for osteoporosis 1 Occurrences starting 07/21/2022 until 08/20/2023 [facility] Work Phone: Comment on above: 1 Occurrences starting 07/21/2022 until 08/20/2023 End: 11-29-2023 Vancomycin [Mass/volume] in Serum or Plasma --random VANCOMYCIN Lab Routine Cystic fibrosis with pulmonary manifestations (HCC) 2x per week for 6 Occurrences starting 11/29/2022 until 11/29/2023, 1 completed [facility] Work Phone: Comment on above: 2x per week for 6 Occurrences starting 1 until 11/29/2023, 1 completed End: 06-17-2024 XR ABDOMEN 1V SUPINE XR ABDOMEN 1V SUPINE Radiology Routine Cystic fibrosis (HCC) 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) 1 Occurrences starting 05/19/2023 until 06/17/2024 [facility] Work Phone: Comment on above: 1 Occurrences starting 05/19/2023 until 06/17/2024 [facility] Immunizations Immunization Date Immunization Notes Care Provider Chester aceves 12-04-2022 COVID-19 booster vaccine, age 12+ yr, bivalent (PFIZER-BIONTECH) [facility] 12-04-2022 influenza, injectabl e, quadrivalent, contains preservative [facility]: [facility] 12-04-2022 influenza virus vacc ine, unspecified formulation Cheyanne Efra [facility] 12-05-2021 PFIZER (purple cap) COVID-19, mRNA, LNP-S, 30mcg/0.3mL dose Sabina Larios MD Work Phone: [facility] Work Phone: 01-21-2021 PFIZER (purple cap) COVID-19, mRNA, LNP-S, 30mcg/0.3mL dose Sabina Larios MD Work Phone: [facility] 12-24-2020 PFIZER (purple cap) COVID-19, mRNA, LNP-S, 30mcg/0.3mL dose Sabina Larios MD Work Phone: [facility] 10-11-2019 influenza, injectabl e, quadrivalent, preservative free Miguelina Murray RN [facility] 07-28-2019 pneumococcal polysaccharide vaccine, 23 valent Miguelina Murray RN [facility] 05-26-2019 pneumococcal conjuga te vaccine, 13 valent Miguelina Murray RN [facility] 11-05-2018 influenza virus vacc ine, unspecified formulation Sabina Larios MD Work Phone: [facility] 11-05-2018 influenza, injectabl e, quadrivalent, contains preservative Miguelina Murray [facility] 11-05-2018 influenza, seasonal, injectable Miguelina Murray RN [facility] 09-02-2016 influenza, injectabl e, quadrivalent, preservative free Miguelina Murray [facility] 09-13-2013 Influenza Vaccine 0. 5 mL >= 3 Yr Trivalent Sabina Larios MD Work Phone: [facility] 09-13-2013 influenza, seasonal, injectable Miguelina Murray [facility] 05-29-2012 tetanus toxoid, redu juve diphtheria toxoid, and acellular pertussis vaccine, adsorbed Forrest Hale MD Work Phone: [facility] 05-27-2012 meningococcal polysaccharide (groups A, C, Y and W-135) diphtheria toxoid conjugate vaccine (MCV4P) Miguelina Murray RN [facility] 05-27-2012 Meningococcal, MCV4, unspecified conjugate formulation(groups A, C, Y and W-135) Forrest Hale MD Work Phone: [facility] 10-23-2011 influenza virus vacc ine, split virus (incl. purified surface antigen) Sabina Larios MD Work Phone: [facility] 10-23-2011 influenza, seasonal, injectable Miguelina Murray RN [facility] 10-23-2011 pneumococcal polysaccharide vaccine, 23 valent Miguelina Murray RN [facility] 10-03-2010 influenza virus vacc ine, whole virus Miguelina Murray RN [facility] 10-19-2009 novel influenza-H1N1 -09, preservative-free, injectable Miguelina Murray RN [facility] 01-08-2006 pneumococcal conjuga te vaccine, 7 valent Miguelina Murray RN [facility] 07-18-1999 diphtheria, tetanus toxoids and pertussis vaccine Forrest Hale MD Work Phone: [facility] Work Phone: 06-13-1999 measles, mumps and rubella virus vaccine Forrest Hale MD Work Phone: [facility] Work Phone: 07-16-1995 diphtheria, tetanus toxoids and pertussis vaccine Miguelina Murray RN [facility] 07-16-1995 haemophilus influenz ae type b vaccine, PRP-T conjugate Miguelina Murray RN [facility] 02-13-1995 diphtheria, tetanus toxoids and pertussis vaccine Forrest Hale MD Work Phone: [facility] Work Phone: 02-13-1995 haemophilus influenz ae type b vaccine, HbOC conjugate Forrest Hale MD Work Phone: [facility] Work Phone: 02-13-1995 haemophilus influenz ae type b vaccine, PRP-T conjugate Sabina Larios MD Work Phone: [facility] 02-13-1995 measles, mumps and rubella virus vaccine Forrest Hale MD Work Phone: [facility] Work Phone: 02-13-1995 poliovirus vaccine, inactivated Forrest Hlae MD Work Phone: [facility] Work Phone: 02-13-1995 trivalent poliovirus vaccine, live, oral Sabina Larios MD Work Phone: [facility] 05-20-1994 diphtheria, tetanus toxoids and pertussis vaccine Forrest Hale MD Work Phone: [facility] Work Phone: 05-20-1994 haemophilus influenz ae type b vaccine, HbOC conjugate Forrest Hale MD Work Phone: [facility] Work Phone: 05-20-1994 haemophilus influenz ae type b vaccine, PRP-T conjugate Sabina Larios MD Work Phone: [facility] 05-20-1994 hepatitis B vaccine, adult dosage Sabina Larios MD Work Phone: [facility] 05-20-1994 hepatitis B vaccine, pediatric or pediatric/adolescent dosage Forrest Hale MD Work Phone: [facility] Work Phone: 05-20-1994 poliovirus vaccine, inactivated Forrest Hale MD Work Phone: [facility] Work Phone: 05-20-1994 trivalent poliovirus vaccine, live, oral Sabina Larios MD Work Phone: [facility] 01-11-1994 diphtheria and tetan us toxoids, adsorbed for pediatric use Sabina Larios MD Work Phone: [facility] 01-11-1994 diphtheria, tetanus toxoids and pertussis vaccine Forrest Hale MD Work Phone: [facility] Work Phone: 01-11-1994 haemophilus influenz ae type b vaccine, HbOC conjugate Forrest Hale MD Work Phone: [facility] Work Phone: 01-11-1994 haemophilus influenz ae type b vaccine, PRP-T conjugate Sabina Larios MD Work Phone: [facility] 01-11-1994 poliovirus vaccine, inactivated Forrest Hale MD Work Phone: [facility] Work Phone: 01-11-1994 trivalent poliovirus vaccine, live, oral Sabina Larios MD Work Phone: [facility] 1993 diphtheria and tetan us toxoids, adsorbed for pediatric use Sabina Larios MD Work Phone: [facility] 1993 diphtheria, tetanus toxoids and pertussis vaccine Forrest Hale MD Work Phone: [facility] Work Phone: 1993 haemophilus influenz ae type b vaccine, HbOC conjugate Forrest Hale MD Work Phone: [facility] Work Phone: 1993 haemophilus influenz ae type b vaccine, PRP-T conjugate Sabina Larios MD Work Phone: [facility] 1993 hepatitis B vaccine, adult dosage Sabina Larios MD Work Phone: [facility] 1993 hepatitis B vaccine, pediatric or pediatric/adolescent dosage Forrest Hale MD Work Phone: [facility] Work Phone: 1993 poliovirus vaccine, inactivated Forrest Hale MD Work Phone: [facility] Work Phone: 1993 trivalent poliovirus vaccine, live, oral Sabina Larios MD Work Phone: [facility] 1993 hepatitis B vaccine, adult dosage Sabina Larios MD Work Phone: [facility] 1993 hepatitis B vaccine, pediatric or pediatric/adolescent dosage Forrest Hale MD Work Phone: [facility] Work Phone: Payers Date Payer Category Payer Medicaid [employer] [id number] 2019-Present [phone] [address] [place] [address] Medicaid [id number] 2018 Medicaid [id number] 2018 Medicaid [id number] 2018 Medicaid [id number] 2017 Unknown [id number] 1993 Unknown [id number] 1993 Unknown [id number] 1993 Unknown [id number] 1993 Unknown [id number] 1993 Unknown [id number] 1993 Unknown [id number] 1993 Unknown [id number] 1993 Unknown [id number] Unknown [id number] Unknown [id number] Social History Date Type Detail Facility Start: 12-06-2021 End: 2022 Tobacco smoking status NHIS Never smoked tobacco [facility] Start: 12-24-2021 End: 08-19-2024 Alcohol intake Current non-drinker of alcohol (finding) [facility] Start: 1995 Sex Assigned At Male [facility] Start: 03-09-2022 End: 08-06-2022 Exposure to SARS-CoV-2 (event) Unable to assess [facility] Work Phone: Start: 12-06-2021 End: 04-07-2023 Cigarette pack-years [facility] Work Phone: Start: 12-06-2021 End: 2022 Tobacco use and exposure Smokeless tobacco non-user [facility] Start: 05-12-2022 Alcohol intake Current drinke r of alcohol (finding) [facility] Start: 03-12-2019 History SDOH Alcohol Comment drinks one beer a night [facility] Start: 12-06-2021 Tobacco Comment No ETS exposure. [facility] Start: 1995 Sex Assigned At Not on file [facility] Start: 05-02-2022 End: 05-12-2022 Exposure to SARS-CoV-2 (event) Yes [facility] Start: 07-07-2022 End: 09-11-2022 Exposure to SARS-CoV-2 (event) Not sure [facility] Start: 07-29-2022 End: 03-10-2023 History SDOH Financial 5 [facility] Start: 07-29-2022 End: 03-10-2023 History SDOH Food Worry 1 [facility] Start: 07-29-2022 End: 03-10-2023 History SDOH Transport Med 2 [facility] Start: 04-07-2023 End: 06-04-2023 Tobacco use panel [facility] Work Phone: How hard is it for y ou to pay for the very basics like food, housing, medical care, and heating Not hard at all [facility] Work Phone: (I/We) worried rosette er (my/our) food would run out before (I/we) got money to buy more. Never true [facility] Work Phone: In the past 12 month s, was there a time when you were not able to pay the mortgage or rent on time? No [facility] Work Phone: Start: 09-08-2020 Gender identity Identifies as male gender (finding) [facility] Start: 09-08-2020 Sexual orientation Heterosexual (thao roberts) [facility] How hard is it for y ou to pay for the very basics like food, housing, medical care, and heating Somewhat hard [facility] Work Phone: Medical Equipment Procedure Code Equipment Code Equipment Original Text Equipment Identifier Dates [id number], [id number], [id number], [id number], [id number] Start: 09-10-2021 End: 03-09-2024 Comment on above: 5x/day 3x/day Use as instructed 3x /day Clinical Notes 03-05-2022 to 08-30-2024 Telephone Encounter - Zaida Santos RN - 08/30/2024 2:45 PM EDTTelephone Encounter - Zaida Santos RN - 08/30/2024 2:[address] - 08/20/2024 8:04 PM EDT Note Date & Type Note Facility 08-30-2024 Telephone encounter Note Sent patient message and left voicemail explaining to hold off on taking the Kayexalate until he completes his lab work today. Will first reassess his potassium level before having him take the Kayexalate. [facility] Work Phone: 08-30-2024 Miscellaneous Notes Sent patient message and left voicemail explaining to hold off on taking the Kayexalate until he completes his lab work today. Will first reassess his potassium level before having him take the Kayexalate. documented in this encounter [facility] 08-27-2024 Telephone encounter Note Called and spoke with patient regarding hyperkalemia (6.1) resulted on pt's CMP this morning . Explained that kayexalate will be sent to his preferred pharmacy and needs to be taken as soon as able and then will need a repeat BMP 6 hour afterwards. Pt agreeable to plan. [facility] Work Phone: 08-27-2024 Miscellaneous Notes Called and spoke with patient regarding hyperkalemia (6.1) resulted on pt's CMP this morning . Explained that kayexalate will be sent to his preferred pharmacy and needs to be taken as soon as able and then will need a repeat BMP 6 hour afterwards. Pt agreeable to plan. documented in this encounter [facility] 08-25-2024 Telephone encounter Note Rep called needing clarification regarding pt's vancomycin IV that Dr. Schneider rx'ed. He would like a clinical staff member to call him back. [facility] 08-25-2024 Miscellaneous Notes Rep called needing clarification regarding pt's vancomycin IV that Dr. Schneider rx'ed. He would like a clinical staff member to call him back. documented in this encounter [facility] 08-25-2024 Telephone encounter Note 3:15 PM From Sally Schneider, I talked to the pharmacist about Jay's vanco level. We are lowering his dose to 300mg every 12 hours Can you please let him know and he will need to go and get another vanco level drawn on Friday Morning before he gets Friday morning dose I put another vanco level order for Friday in [facility] SW spoke with pt, who had already spoken to [facility] about the plan. Pt relayed plan to this for verification. Pt to obtain labs on Friday with vanco level. 8:45 am: Sent pt text message re: time of vancomycin dosing before 8:30 am lab draw yesterday. Vanco dose at 8 pm Friday prior to Mon am lab draw. Notified ACQUISITION ANALYST. Pt asking about saline due to feeling dry. Pt aware and expecting delivery of meds tomorrow. ACQUISITION ANALYST ordered and orders were faxed to [facility] [employer] [phone]. [facility] 08-25-2024 Miscellaneous Notes 3:15 PM From Sally Schneider, I talked to the pharmacist about Jay's vanco level. We are lowering his dose to 300mg every 12 hours Can you please let him know and he will need to go and get another vanco level drawn on Friday before he gets Friday morning dose I put another vanco level order for Friday in [facility] SW spoke with pt, who had already spoken to [facility] about the plan. Pt relayed plan to this for verification. Pt to obtain labs on Friday with vanco level. 8:45 am: Sent pt text message re: time of vancomycin dosing before 8:30 am lab draw yesterday. Vanco dose at 8 pm Friday prior to Mon am lab draw. Notified ACQUISITION ANALYST. Pt asking about saline due to feeling dry. Pt aware and expecting delivery of meds tomorrow. ACQUISITION ANALYST ordered and orders were faxed to [facility] [employer] [phone]. documented in this encounter [facility] 08-20-2024 History of Presen t illness Narrative CF Pre-Clinic Checklist PRE-TRANSPLANT Last CF clinic visit date: 08/18/24 Dunai enriquez Bud Microbiology: b. 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 (01/01/1996 - in [address]) Other medical complications: ---Advanced stage lung disease ---Chronic infection with Pseudomonas, MRSA, 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, Trichosporonosis, Aspergillus ---Pancreatic insufficiency - on enzymes with Creon ---CFRD - follows with endocrinology ---CF Liver disease - complicated by portal hypertension, esophageal varices ---Chronic sinusitis ---Anxiety/Depression Exacerbations in the last 12 months: -Home IV abx: 08/19/24 - current (tentative end date of 09/02/23) -->IV Meropenem 1 gram IV every 12 hours IV Vancomycin 500 mg IV every 12 hours And IV Dyphenhydramine 50 mg IV 30 minutes pre-dose Q 12 h prior to vanco dose -Hospital Admit: 02/03/24 - 02/16/24 for CF Exacerbation and Upper GIB -> treated with IV Meropenem, Minocycline and Vancomycin while inpatient -> discharged home on IV Meropenem and IV Vancomycin through 02/23/24 -Hospital Admit: 07/02/23-07/29/23 treated with Vancomycin through 07/06, Minocycline through 07/22, and Meropenum through 07/24 (not discharged home on any IV abx) -Hospital Admit: 03/07/23-03/11/23 -> discharged on Home IV abx Vanc and Larisa through 04/01/23 FEV1%: 24% on 08/18/24 FEV1%trend: 30% on 05/05/24 ; 27% on 02/25/24; 27% on 02/12/24 ; 29% on 09/24/23 ; 33% on 09/24/23; 36% on 07/24/23 ; 23% on 07/17/23 ; 23% on 07/10/23 ; 23% on 07/02/23 BMI: 15.6 kg/m2 BMI Trend: decreased with exacerbation RD ANNUAL VISIT Needed: completed 05/05/24 RT ANNUAL VISIT Needed: completed 05/05/24 SW ANNUAL VISIT Needed:completed 05/05/24 SW Mental health screen: completed 05/05/24 ANNUAL Labs Needed: Completed on 02/27/24 Last OGTT/CFRD: +CFRD -> Follows with Tyler Ramirez CNP-last OV 07/06/24 Dexa: Completed on 09/24/23 -> Lowest T-score is -3.1 in left femoral neck (repeat in August 2024 at [facility])-order is in. Scheduled for Bud 09/02 T/Z = > -1.0 - every 5 years T/Z = -1.0 to -2.0 - every 2-4 years T/Z = < -2.0 - every 1 year Colonoscopy (age > 35) N/A WNL-every 5 years Abnormal-every 3 or sooner Abdominal Ultra Sound: 05/07/24-MRI BOWLING/MARYAM- IMPRESSION: Multifocal segmental discontinuous bile duct dilation as described, most prominent in hepatic segment II, concerning for PBC or PSC. Cirrhotic liver with portal hypertension including multiple varices and mild splenomegaly but only trace ascites. No focal hepatic mass. Pancreatic changes consistent with sequela of cystic fibrosis. RUQ US last completed on 07/09/23 -> Cirrhotic liver morphology with hepatic steatosis. (Every 2 years if LFT's normal) Chronic Medications (List why If not on medication): CFTR modulators: Trikafta - on adjusted dosing due to Cirrhosis - reports taking 2 orange pills on even days of the month and 1 orange pill on odd days of the month, No blue pills Pulmozyme: once daily Hypertonic saline: has at home but not currently using Chronic Azithromycin (anti-inflammatory): No (on hold due to prior NTM) Inhaled Abx: [place] Ibuprofen: No Referral to Endo: follows with Stephie Ramirez CNP Referral to Transplant: Lung and liver discussed extensively with patient during July 2023 hospital admission - pt eventually deferred at hospital discharge EPIC/Phone Messages since last visit: 08/12/24; refused oral bactrim, cipro, minocycline, levaquin and inhaled meropenem for exacerbation due to stomach discomfort Other issues: -Last seen 08/18 for clinic visit; started on home IVs for exacerbation: CF Pulmonary Exacerbation Hx increased cough and sputum x 4-5 weeks, resolved minor hemoptysis, daily fever x 1 week, FEV1 down from 30% to 24%, 10 lb weight loss -PICC at [facility] tomorrow 7:45am (map given to [facility] V[facility] entrance for PICC placement, order confirmed) -IV Vancomycin 500mg q12, Meropenem 1gram q12 x 14 days; IV diphenhydramine 50mg q12, 30' before IV vancomycin -CMP, CBC, Mg labs today, then qMon & Thurs -Vanc trough Thursday 08/23 -meds via [facility] -PICC care via -[place] -F/U Adult [facility] Center at [facility]-Main Follow up visit in 7-10 days -See abx abstract 08/20/24 Plan for visit: - home IV follow up - PFT ordered and scheduled Fernando Zhang RD documented in this encounter [facility] 08-20-2024 History of Presen t illness Narrative Abstract - IV Antibiotics Antibiotic ordered: IV Meropenem 1 gram IV every 12 hours IV Vancomycin 500 mg IV every 12 hours And IV Dyphenhydramine 50 mg IV 30 minutes pre-dose Q 12 h prior to vanco dose Additional orders/supplies: -0.9% sodium chloride (NACL 0.9%) infusion; 125 ml/hr for 8 hours during night -sodium chloride 0.9% flush (BD POSIFLUSH) syringe; Flush before and after abx infusion with 10 ml -Heparin 100 unit/ml injection; 5 ml; For access and de-access of medports (CF only) -Heparin 10/unit/ml injection; 5 ml; Flush before and after each abx infusion using SASH method (CF only) Start Date: 08/19/2024 Tentative End Date: Tentatively 09/02/2024 Central Line type: Lft arm Single Lumen PICC placed on 08/19/24 Placed by whom: PICC Team while admitted Home Care Agency: machine repair person: OP clinic: [facility] for labs and line care Home Infusion Pharmacy Agency: machine repair person: [facility] Fax: Have we called HC agency to follow up orders/additional needs? Did we need to contact HC Liaison (Teresa Medina or Mckenna Masterson): Yes or No. Issues: No Labs ordered: CBC w/ Diff CMP Mag Pre-dose Vancomycin Labs once or twice weekly: Twice Weekly Days: Mondays and Patient phone number [phone] Were they contacted? Yes Clinic follow-up appointment date: TBD documented in this encounter [facility] 08-19-2024 Note Addended by: ZAIDA SANTOS on: 08/19/2024 11:25 AM Modules accepted: Orders [facility] 08-19-2024 Miscellaneous Notes Addended by: ZAIDA SANTOS on: 08/19/2024 11:25 AM Modules accepted: Orders Nataliya with [facility] called to request signed orders. They have the orders but they are not signed. Requests signed orders. Orders and pertinent clinical information faxed to [facility] for PICC placement yesterday. Spoke with patient this morning- PICC was placed as planned. IV abx orders and pertinent clinical information also faxed to [facility] this morning at 0830. Requested patient reach out to this office once they've confirmed SOC/antibiotic delivery with him. documented in this encounter [facility] 08-19-2024 Telephone encounter Note Nataliya with [facility] called to request signed orders. They have the orders but they are not signed. Requests signed orders. [facility] 08-19-2024 Telephone encounter Note Orders and pertinent clinical information faxed to [facility] for PICC placement yesterday. Spoke with patient this morning- PICC was placed as planned. IV abx orders and pertinent clinical information also faxed to [facility] this morning at 0830. Requested patient reach out to this office once they've confirmed SOC/antibiotic delivery with him. [facility] 08-19-2024 Note HNO ID: [id number] Author: DANIEL BARONE RN Service: ? Author Type: Registered Nurse Type: Procedures Filed: 08/19/2024 08:22 Note Text: PICC NURSE INSERTION NOTE DATE OF PROCEDURE: August 19, 2024 TIME OF PROCEDURE: 0750 ORDERING PHYSICIAN: Dunia INFORMED CONSENT: Obtained per hospital policy. INDICATION FOR LINE PLACEMENT: IV access COPAT CONDITION OF LINE PLACEMENT: Sterile PRIMARY PROCEDURALIST: Orquidea Ochoa RN PRESS OPERATOR AUTOMATIC: Daniel Barone RN PRE-PROCEDURE REVIEW ALLERGIES Allergen Reactions Vancomycin Itching, Rash Gets Red Man syndrome and pt if not premedicated with benadryl prior to Vancomycin infusions. Cefoxitin Rash, Other: See Comments Severe abdominal pain, diarrhea, rash Severe Abdominal Pains Linezolid Rash, GI Upset Known History of Upper Venous Thrombosis: No Known History of Permanent Pacemaker or Automated Implanted Cardiac Device: No Previous Breast Surgery of Lymph Node Dissection: No Estimated Glomerular Filtration Rate Date Value Ref Range Status 08/18/2024 55 (L) >=60 mL/min/1.73m? Final Comment: Estimated Glomerular Filtration Rate (eGFR) is calculated using the 2020 CKD-EPI creatinine equation. This equation utilizes serum creatinine, sex, and age as parameters. The creatinine assay has traceable calibration to isotope dilution-mass spectrometry. Refer to KDIGO guidelines for clinical interpretation. In patients with unstable renal function, e.g. those with acute kidney injury, the eGFR may not accurately reflect actual GFR. eGFR- Date Value Ref Range Status 12/24/2021 >60 Final eGFR Date Value Ref Range Status 12/08/2015 >60 >60mL/min/1.73m2 Final Comment: If the patient is , multiply the result by 1.210. History of Renal Disease: GFR [address] Medellin Ultrasound Assessment Complete: Yes PROCEDURE NARRATIVE SAFE PRACTICE Hand Hygiene per Hospital Policy: Yes Skin Preparation Unit Dose Applicator Used: Chloraprep (CHG + alcohol), allowed to dry. Procedure Surface Cleansed with Antimicrobial Wipes: Yes Barriers Used by Proceduralist and all Assisting Personnel: Yes UNIVERSAL PROTOCOL / SAFETY CHECKLIST Procedure to be Performed: Peripherally Inserted Central Catheter Sign In: A Moment of CARE was completed. Personnel directly involved with the procedure wore the appropriate PPE (Personal Protective Equipment). Special equipment: ultrasound, TCS Patient/Surrogate Stated/Verified: PATIENT VERIFIED(optional for EMERGENT procedures): Patient name, Date of , Relevant allergies, and The intended procedure Time Out Communication: Intended patient and procedure match the source documents. Consent documented and matches the intended procedure. Relevant labs, photos, and/or imaging studies have been reviewed. Correct side/site marked and visible. Medications required for procedure verified. Fire risk assessed and interventions discussed. No implant(s) inserted. Sign Out: SIGN OUT (optional for EMERGENT procedures): No specimen collected. All instruments, equipment, possible retained foreign bodies accounted for. Post-procedure follow-up management communicated and Plan of Care Visit completed when applicable. Daniel Barone RN CATHETER PLACEMENT Brand: Bard Lot: [id number] Number of Lumens: 1 Type of PICC: Power Injectable PICC Lumen Size: 4 Mexican PLACEMENT TECHNIQUE Lidocaine: Yes, Lidocaine 1% Volume 1 mL Subcutaneous Modified Seldinger Technique Used to Place Line via the Left Brachial Ultrasound Guidance: Yes Number of Attempts at Insertion: 1 Ensured control of guidewire during all aspects of the procedure: Yes Accounted for entire guidewire upon removal: Yes Internal Length: 38 cm External Length: 2 cm Trim Length: 40 cm Mid-Arm Circumference: 21 centimeters Post Insertion Pain Level Related to Procedure: 0 Action Taken to Address Pain: None needed Verified Placement: Blood return and flushes with ease and Tip location system or device indicates the tip is located in the SVC/CAJ. Line was Flushed with 20 mL normal saline Line Secured with: Securement device Sterile Dressing Applied and Dated: Yes Sterile Caps on all Ports Prior to Leaving Procedure Area: Yes, Disinfection caps applied SPECIMENS: None COMPLICATIONS: None. Some difficulty threading central. Patient Education Materials: Given to patient QUESTIONS or PROBLEMS: Call [phone] SIGNATURE: Daniel Barone RN PATIENT NAME: Jay Barber DATE: August 19, 2024 TIME: 8:08 AM PAGER/CONTACT PHONE: [facility] 08-19-2024 Procedure note Associated Ord er(s): IR VASCULAR ACCESS TEAM PICC INSERTION RADIO Procedure(s): PICC LINE INSERTION (PICC TEAM) (AK) PICC NURSE INSERTION NOTE DATE OF PROCEDURE: August 19, 2024 TIME OF PROCEDURE: 0750 ORDERING PHYSICIAN: Dunia INFORMED CONSENT: Obtained per hospital policy. INDICATION FOR LINE PLACEMENT: IV access COPAT CONDITION OF LINE PLACEMENT: Sterile PRIMARY PROCEDURALIST: Orquidea Ochoa RN PRESS OPERATOR AUTOMATIC: Daniel Barone RN PRE-PROCEDURE REVIEW ALLERGIES Allergen Reactions Vancomycin Itching, Rash Gets Red Man syndrome and pt if not premedicated with benadryl prior to Vancomycin infusions. Cefoxitin Rash, Other: See Comments Severe abdominal pain, diarrhea, rash Severe Abdominal Pains Linezolid Rash, GI Upset Known History of Upper Venous Thrombosis: No Known History of Permanent Pacemaker or Automated Implanted Cardiac Device: No Previous Breast Surgery of Lymph Node Dissection: No Estimated Glomerular Filtration Rate Date Value Ref Range Status 08/18/2024 55 (L) >=60 mL/min/1.73m Final Comment: Estimated Glomerular Filtration Rate (eGFR) is calculated using the 2020 CKD-EPI creatinine equation. This equation utilizes serum creatinine, sex, and age as parameters. The creatinine assay has traceable calibration to isotope dilution-mass spectrometry. Refer to KDIGO guidelines for clinical interpretation. In patients with unstable renal function, e.g. those with acute kidney injury, the eGFR may not accurately reflect actual GFR. eGFR- Date Value Ref Range Status 12/24/2021 >60 Final eGFR Date Value Ref Range Status 12/08/2015 >60 >60mL/min/1.73m2 Final Comment: If the patient is , multiply the result by 1.210. History of Renal Disease: GFR [address] Medellin Ultrasound Assessment Complete: Yes PROCEDURE NARRATIVE SAFE PRACTICE Hand Hygiene per Hospital Policy: Yes Skin Preparation Unit Dose Applicator Used: Chloraprep (CHG + alcohol), allowed to dry. Procedure Surface Cleansed with Antimicrobial Wipes: Yes Barriers Used by Proceduralist and all Assisting Personnel: Yes UNIVERSAL PROTOCOL / SAFETY CHECKLIST Procedure to be Performed: Peripherally Inserted Central Catheter Sign In: A Moment of CARE was completed. Personnel directly involved with the procedure wore the appropriate PPE (Personal Protective Equipment). Special equipment: ultrasound, TCS Patient/Surrogate Stated/Verified: PATIENT VERIFIED(optional for EMERGENT procedures): Patient name, Date of , Relevant allergies, and The intended procedure Time Out Communication: Intended patient and procedure match the source documents. Consent documented and matches the intended procedure. Relevant labs, photos, and/or imaging studies have been reviewed. Correct side/site marked and visible. Medications required for procedure verified. Fire risk assessed and interventions discussed. No implant(s) inserted. Sign Out: SIGN OUT (optional for EMERGENT procedures): No specimen collected. All instruments, equipment, possible retained foreign bodies accounted for. Post-procedure follow-up management communicated and Plan of Care Visit completed when applicable. Daniel Barone RN CATHETER PLACEMENT Brand: Bard Lot: [id number] Number of Lumens: 1 Type of PICC: Power Injectable PICC Lumen Size: 4 Mexican PLACEMENT TECHNIQUE Lidocaine: Yes, Lidocaine 1% Volume 1 mL Subcutaneous Modified Seldinger Technique Used to Place Line via the Left Brachial Ultrasound Guidance: Yes Number of Attempts at Insertion: 1 Ensured control of guidewire during all aspects of the procedure: Yes Accounted for entire guidewire upon removal: Yes Internal Length: 38 cm External Length: 2 cm Trim Length: 40 cm Mid-Arm Circumference: 21 centimeters Post Insertion Pain Level Related to Procedure: 0 Action Taken to Address Pain: None needed Verified Placement: Blood return and flushes with ease and Tip location system or device indicates the tip is located in the SVC/CAJ. Line was Flushed with 20 mL normal saline Line Secured with: Securement device Sterile Dressing Applied and Dated: Yes Sterile Caps on all Ports Prior to Leaving Procedure Area: Yes, Disinfection caps applied SPECIMENS: None COMPLICATIONS: None. Some difficulty threading central. Patient Education Materials: Given to patient QUESTIONS or PROBLEMS: Call [phone] SIGNATURE: Daniel Barone RN PATIENT NAME: Jay Barber DATE: August 19, 2024 TIME: 8:08 AM PAGER/CONTACT PHONE: [facility] 08-19-2024 Procedure note Associated Ord er(s): IR VASCULAR ACCESS TEAM PICC INSERTION RADIO Procedure(s): PICC LINE INSERTION (PICC TEAM) (AK) PICC NURSE INSERTION NOTE DATE OF PROCEDURE: August 19, 2024 TIME OF PROCEDURE: 0750 ORDERING PHYSICIAN: Dunia INFORMED CONSENT: Obtained per hospital policy. INDICATION FOR LINE PLACEMENT: IV access COPAT CONDITION OF LINE PLACEMENT: Sterile PRIMARY PROCEDURALIST: Orquidea Ochoa RN PRESS OPERATOR AUTOMATIC: Daniel Barone RN PRE-PROCEDURE REVIEW ALLERGIES Allergen Reactions Vancomycin Itching, Rash Gets Red Man syndrome and pt if not premedicated with benadryl prior to Vancomycin infusions. Cefoxitin Rash, Other: See Comments Severe abdominal pain, diarrhea, rash Severe Abdominal Pains Linezolid Rash, GI Upset Known History of Upper Venous Thrombosis: No Known History of Permanent Pacemaker or Automated Implanted Cardiac Device: No Previous Breast Surgery of Lymph Node Dissection: No Estimated Glomerular Filtration Rate Date Value Ref Range Status 08/18/2024 55 (L) >=60 mL/min/1.73m Final Comment: Estimated Glomerular Filtration Rate (eGFR) is calculated using the 2020 CKD-EPI creatinine equation. This equation utilizes serum creatinine, sex, and age as parameters. The creatinine assay has traceable calibration to isotope dilution-mass spectrometry. Refer to KDIGO guidelines for clinical interpretation. In patients with unstable renal function, e.g. those with acute kidney injury, the eGFR may not accurately reflect actual GFR. eGFR- Date Value Ref Range Status 12/24/2021 >60 Final eGFR Date Value Ref Range Status 12/08/2015 >60 >60mL/min/1.73m2 Final Comment: If the patient is , multiply the result by 1.210. History of Renal Disease: GFR [address] Medellin Ultrasound Assessment Complete: Yes PROCEDURE NARRATIVE SAFE PRACTICE Hand Hygiene per Hospital Policy: Yes Skin Preparation Unit Dose Applicator Used: Chloraprep (CHG + alcohol), allowed to dry. Procedure Surface Cleansed with Antimicrobial Wipes: Yes Barriers Used by Proceduralist and all Assisting Personnel: Yes UNIVERSAL PROTOCOL / SAFETY CHECKLIST Procedure to be Performed: Peripherally Inserted Central Catheter Sign In: A Moment of CARE was completed. Personnel directly involved with the procedure wore the appropriate PPE (Personal Protective Equipment). Special equipment: ultrasound, TCS Patient/Surrogate Stated/Verified: PATIENT VERIFIED(optional for EMERGENT procedures): Patient name, Date of , Relevant allergies, and The intended procedure Time Out Communication: Intended patient and procedure match the source documents. Consent documented and matches the intended procedure. Relevant labs, photos, and/or imaging studies have been reviewed. Correct side/site marked and visible. Medications required for procedure verified. Fire risk assessed and interventions discussed. No implant(s) inserted. Sign Out: SIGN OUT (optional for EMERGENT procedures): No specimen collected. All instruments, equipment, possible retained foreign bodies accounted for. Post-procedure follow-up management communicated and Plan of Care Visit completed when applicable. Daniel Barone RN CATHETER PLACEMENT Brand: [id number] Media Lot: [id number] Number of Lumens: 1 Type of PICC: Power Injectable PICC Lumen Size: 4 Mexican PLACEMENT TECHNIQUE Lidocaine: Yes, Lidocaine 1% Volume 1 mL Subcutaneous Modified Seldinger Technique Used to Place Line via the Left Brachial Ultrasound Guidance: Yes Number of Attempts at Insertion: 1 Ensured control of guidewire during all aspects of the procedure: Yes Accounted for entire guidewire upon removal: Yes Internal Length: 38 cm External Length: 2 cm Trim Length: 40 cm Mid-Arm Circumference: 21 centimeters Post Insertion Pain Level Related to Procedure: 0 Action Taken to Address Pain: None needed Verified Placement: Blood return and flushes with ease and Tip location system or device indicates the tip is located in the SVC/CAJ. Line was Flushed with 20 mL normal saline Line Secured with: Securement device Sterile Dressing Applied and Dated: Yes Sterile Caps on all Ports Prior to Leaving Procedure Area: Yes, Disinfection caps applied SPECIMENS: None COMPLICATIONS: None. Some difficulty threading central. Patient Education Materials: Given to patient QUESTIONS or PROBLEMS: Call [phone] SIGNATURE: Daniel Barone RN PATIENT NAME: Jay Barber DATE: August 19, 2024 TIME: 8:08 AM PAGER/CONTACT PHONE: documented in this encounter [facility] 08-19-2024 Note HNO ID: [id number] Author: DANIEL BARONE RN Service: ? Author Type: Registered Nurse Type: Progress Notes Filed: 08/19/2024 08:22 Note Text: AMBULATORY PATIENT EDUCATION VASCULAR ACCESS TEAM TOPIC: Peripherally Inserted Central Catheter READINESS TO LEARN COGNITIVE ABILITY: Alert and oriented MOTIVATION TO LEARN: Interested FAMILY SUPPORT: High - Very involved in pt care INSTRUCTION PROVIDED TO: Patient PATIENT LEARNS BEST BY: Individual Instruction FACTORS AFFECTING LEARNING:None PHYSICAL LIMITATIONS AFFECTING LEARNING: None LEARNING RESPONSE METHOD OF INSTRUCTION: Individual instruction PATIENT / FAMILY RESPONSE: Verbalizes understanding of pre-procedure instructions Verbalizes understanding of post-procedure instructions FOLLOW-UP PLAN: Follow-up with Primary Care SUPPLEMENTAL MATERIAL: PICC Line brochure [facility] 08-19-2024 History of Presen t illness Narrative AMBULATORY PATIENT EDUCATION VASCULAR ACCESS TEAM TOPIC: Peripherally Inserted Central Catheter READINESS TO LEARN COGNITIVE ABILITY: Alert and oriented MOTIVATION TO LEARN: Interested FAMILY SUPPORT: High - Very involved in pt care INSTRUCTION PROVIDED TO: Patient PATIENT LEARNS BEST BY: Individual Instruction FACTORS AFFECTING LEARNING:None PHYSICAL LIMITATIONS AFFECTING LEARNING: None LEARNING RESPONSE METHOD OF INSTRUCTION: Individual instruction PATIENT / FAMILY RESPONSE: Verbalizes understanding of pre-procedure instructions Verbalizes understanding of post-procedure instructions FOLLOW-UP PLAN: Follow-up with Primary Care SUPPLEMENTAL MATERIAL: PICC Line brochure documented in this encounter [facility] 08-18-2024 Note [facility] 08-18-2024 History of Presen t illness Narrative Images from the original note were not included. PULMONARY MEDICINE CYSTIC FIBROSIS FOLLOW UP August 18, 2024 Patient Name: Jay Barber PRIMARY CARE PHYSICIAN: No primary care provider on file. 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, Trichosporonosis, Aspergillus ---Pancreatic insufficiency - on enzymes with Creon ---CFRD - follows with endocrinology ---CF Liver disease - complicated by portal hypertension, esophageal varices ---Chronic sinusitis ---Anxiety/Depression A CF Pulmonary Exacerbation is PRESENT We discussed the following today: CF Pulmonary Exacerbation Hx increased cough and sputum x 4-5 weeks, resolved minor hemoptysis, daily fever x 1 week, FEV1 down from 30% to 24%, 10 lb weight loss -PICC at [facility] tomorrow 7:45am (map given to [facility] entrance for PICC placement, order confirmed) -IV Vancomycin 500mg q12, Meropenem 1gram q12 x 14 days; IV diphenhydramine 50mg q12, 30' before IV vancomycin -CMP, CBC, Mg labs today, then qMon & Thurs -Vanc trough Thursday 08/23 -meds via [facility] -PICC care via [facility] -F/U Adult [facility] Center at [facility]-Main Follow up visit in 7-10 days HISTORY OF PRESENT ILLNESS: Jay Barber is a 29 year old male, here for follow-up of Cystic Fibrosis Pt reports stable till mid July. Had cough, sputum, congestion, malaise x 7-10 days, began to improve. Had hemoptysis (minor), resolved within 24 hours after starting TEA. Has smoldered since. Has moderate cough, sputum (above baseline, but moderate). Fever daily with chills in afternoon, will hit 102oF if doesn't take antipyretic. FEV1 down today. Doesn't look bad, able to lie down. Minimal cough in the office. Long discussion - OK with home IVs. Worked to get PICC ([facility], 8am 07/19), meds (IV Vancomyin 500mg and Meropenem 1g each q 12, with IV diphenhydramine 50mg premedication for vancomycin. Labs as he leaves today, and q M and Th, F/U in 7-10 days, call if issues. -Hospital Admit: 02/03/24 - 02/16/24 for CF Exacerbation and Upper GIB -> treated with IV Meropenem, Minocycline and Vancomycin while inpatient -> discharged home on IV Meropenem and IV Vancomycin through 02/23/24 -Hospital Admit: 07/02/23-07/29/23 treated with Vancomycin through 07/06, Minocycline through 07/22, and Meropenum through 07/24 (not discharged home on any IV abx) -Hospital Admit: 03/07/23-03/11/23 -> discharged on Home IV abx Vanc and Larisa through 04/01/23 Courses of oral abx since last visit:0 Courses of IV abx since last visit:0 Prednisone use since last visit: 0 ED visits since last visit: 0 Hospitalizations since last visit: 0 [place]/Phone Messages since last visit: 07/19/24-f/u with GI-PLAN -Continue Ursodiol 600 mg daily (15 mg/kg/day) to help with bile duct patency/recovery -Discussed importance of liver biopsy to confirm diagnosis of cirrhosis, evaluate portal pressures, and ensure that patient does not have a coexisting disease process such as PBC or small-duct PSC -If patient agrees to TJ liver biopsy and has evidence of CSPH (HVPG>10 mm Hg), will need to consider use of carvedilol 3.125 mg q12h to prevent decompensation -Per patient request, will forward clinic note from today to 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 Transjugular) as patient has concerns that if he were to be intubated, he may have a diffucult extubation 07/19/24-pt contacted [facility] to obtain info about their center/clinics INTERVAL HISTORY RESPIRATORY: Cough: more frequent Paroxysms: no Sputum: thick, green Hemoptysis: had x 24 hours, < 100mls. Restarted Transhexemic Acid and stopped within 24 hours Chest Congestion: yes Dyspnea: moderate Chest Pain: no Night sweats: no Fever: daily mid afternoon x 7 days Fatigue:yes Wheezing: occassionally Sinuses: stable FEV1%: 30% on 05/05/24 FEV1%trend: 27% on 02/25/24; 27% on 02/12/24 ; 29% on 09/24/23 ; 33% on 09/24/23; 36% on 07/24/23 ; 23% on 07/17/23 ; 23% on 07/10/23 ; 23% on 07/02/23 Vitamin D 25 Hydroxy (ng/mL) Date Value 02/27/2024 32.4 Hemoglobin A1C Date Value Ref Range Status 02/03/2024 6.3 (H) 4.3 - 5.6 % Final Comment: [place] [employer] guidelines indicate that patients with HgbA1c in the range 5.7-6.4% are at increased risk for development of diabetes, and intervention by lifestyle modification may be beneficial. HgbA1c greater or equal to 6.5% is considered diagnostic of diabetes. 07/03/2023 6.9 (H) 4.3 - 5.6 % Final Comment: [place] [employer] guidelines indicate that patients with HgbA1c in the range 5.7-6.4% are at increased risk for development of diabetes, and intervention by lifestyle modification may be beneficial. HgbA1c greater or equal to 6.5% is considered diagnostic of diabetes. Hemoglobin A1C (POCT) Date Value Ref Range Status 07/06/2024 6.2 (A) 4.3 - 5.6 % Final Comment: Location:[facility], [address] [place] [address] Point of care (POC) Hemoglobin A1c (HGBA1C) testing is intended to assess glucose control and provide a management tool for patients known to have diabetes and their healthcare providers. Target HGBA1C levels may depend on specific clinical circumstances. POC HGBA1C is not intended for use as a diagnostic or screening test; laboratory-based testing should be used for diagnostic purposes. The following information is supplemental and may not be applicable to specific diabetes management situations: The POC device forder operator provides a normal range of 4.2% to 6.5% for the HGBA1C POC test. However, the [place] [employer] guidelines indicate that patients with HGBA1C in the range of 5.7% to 6.4% are at increased risk for development of diabetes and that intervention by lifestyle modification may be beneficial. A HGBA1C level greater than or equal to 6.5% is considered diagnostic of diabetes, pending confirmatory testing. Use of HGBA1C testing to evaluate glucose control may not be appropriate for patients with hemoglobin variants or other conditions (e.g. anemia) that alter red blood cell lifespan. 03/09/2024 6.1 (A) 4.3 - 5.6 % Final Comment: [facility] [place], [address] [place] [address] Point of care (POC) Hemoglobin A1c (HGBA1C) testing is intended to assess glucose control and provide a management tool for patients known to have diabetes and their healthcare providers. Target HGBA1C levels may depend on specific clinical circumstances. POC HGBA1C is not intended for use as a diagnostic or screening test; laboratory-based testing should be used for diagnostic purposes. The following information is supplemental and may not be applicable to specific diabetes management situations: The POC device forder operator provides a normal range of 4.2% to 6.5% for the HGBA1C POC test. However, the [place] [employer] guidelines indicate that patients with HGBA1C in the range of 5.7% to 6.4% are at increased risk for development of diabetes and that intervention by lifestyle modification may be beneficial. A HGBA1C level greater than or equal to 6.5% is considered diagnostic of diabetes, pending confirmatory testing. Use of HGBA1C testing to evaluate glucose control may not be appropriate for patients with hemoglobin variants or other conditions (e.g. anemia) that alter red blood cell lifespan. 11/20/2023 6.4 4.2 - 5.6 % Final Comment: [facility], [address] [place] [address], [id number] Point of care (POC) Hemoglobin A1c (HGBA1C) testing is intended to assess glucose control and provide a management tool for patients known to have diabetes and their healthcare providers. Target HGBA1C levels may depend on specific clinical circumstances. POC HGBA1C is not intended for use as a diagnostic or screening test; laboratory-based testing should be used for diagnostic purposes. The following information is supplemental and may not be applicable to specific diabetes management situations: The POC device forder operator provides a normal range of 4.2% to 6.5% for the HGBA1C POC test. However, the [place] [employer] guidelines indicate that patients with HGBA1C in the range of 5.7% to 6.4% are at increased risk for development of diabetes and that intervention by lifestyle modification may be beneficial. A HGBA1C level greater than or equal to 6.5% is considered diagnostic of diabetes, pending confirmatory testing. Use of HGBA1C testing to evaluate glucose control may not be appropriate for patients with hemoglobin variants or other conditions (e.g. anemia) that alter red blood cell lifespan. HAD COVID: Y/N yes VAPE: Y/N no ANNUAL SCREENING: OGTT: NA - CFRD EYE EXAM TO CHECK FOR CATARACTS: INTERESTED IN RESEARCH: YES Was the patient screened for barriers to adherence using the Daily Care Check-In? NO RD ANNUAL VISIT Needed: completed 05/05/24 RT ANNUAL VISIT Needed: completed 05/05/24 SW ANNUAL VISIT Needed:completed 05/05/24 SW Mental health screen: completed 05/05/24 ANNUAL Labs Needed: Completed on 02/27/24 Last OGTT/CFRD: +CFRD -> Follows with Tyler Ramirez CNP-last OV 07/06/24 Dexa: Completed on 09/24/23 -> Lowest T-score is -3.1 in left femoral neck (repeat in August 2024 at [facility])-order is in. Scheduled for Bud T/Z = > -1.0 - every 5 years T/Z = -1.0 to -2.0 - every 2-4 years T/Z = < -2.0 - every 1 year Colonoscopy (age > 35) N/A WNL-every 5 years Abnormal-every 3 or sooner Abdominal Ultra Sound: 05/07/24-MRI BOWLING/MARYAM- IMPRESSION: Multifocal segmental discontinuous bile duct dilation as described, most prominent in hepatic segment II, concerning for PBC or PSC. Cirrhotic liver with portal hypertension including multiple varices and mild splenomegaly but only trace ascites. No focal hepatic mass. Pancreatic changes consistent with sequela of cystic fibrosis. RUQ US last completed on 07/09/23 -> Cirrhotic liver morphology with hepatic steatosis. (Every 2 years if LFT's normal) Referral to Endo: follows with Stephie Ramirez CNP Referral to Transplant: Lung and liver discussed extensively with patient during July 2023 hospital admission - pt eventually deferred at hospital discharge Immunization History Administered Date(s) Administered COVID-19 original vaccine, age 12+ yr, monovalent (MedSolutions - PURPLE TOP) 12/24/2020 01/21/2021 12/05/2021 COVID-19 vaccine, age 12+ yr, bivalent (PFIZER-BIONTECH) 12/04/2022 Haemophilus influenzae b (HbOC) vaccine, 4-dose series (HIBTITER) 1995 01/11/1994 05/20/1994 02/13/1995 Haemophilus influenzae b (Hib PRP-T) vaccine, 4-dose series (ACTHIB, HIBERIX) 07/16/1995 diphtheria tetanus pertussis (DTP) vaccine 1995 01/11/1994 05/20/1994 02/13/1995 07/16/1995 07/18/1999 hepatitis B (HepB) vaccine, 3-dose series, age 0 yr - 19 yr (ENGERIX B-PEDS, RECOMBIVAX HB-PEDS) 1995 1993 05/20/1994 influenza (IIV3) vaccine, trivalent (AFLURIA, FLULAVAL, FLUVIRIN, FLUZONE) 10/23/2011 09/13/2013 11/05/2018 influenza (IIV4) vaccine, age 6 mo - 64 yr, quadrivalent (AFLURIA, FLULAVAL, FLUZONE) 12/04/2022 influenza (IIV4) vaccine, age 6 mo - 64 yr, quadrivalent, PF (AFLURIA, FLUARIX, FLULAVAL, FLUZONE) 09/02/2016 10/11/2019 influenza (IIV4) vaccine, quadrivalent (AFLURIA, FLULAVAL, FLUZONE) 11/05/2018 influenza vaccine, whole virus 10/03/2010 measles mumps rubella (MMR) vaccine (M-M-R II, PRIORIX) 02/13/1995 06/13/1999 meningococcal (MenACWY-D) vaccine, quadrivalent (MENACTRA) 05/27/2012 meningococcal (MenACYW) vaccine, quadrivalent, unspecified formulation 05/27/2012 novel influenza (F7P0-57) vaccine, PF 10/19/2009 pneumococcal (PCV7) vaccine, 7 valent (PREVNAR 7) 01/08/2006 pneumococcal conjugate (PCV13) vaccine, 13 valent (PREVNAR 13) 05/26/2019 pneumococcal polysaccharide (PPV23) vaccine, 23 valent (PNEUMOVAX 23) 10/23/2011 07/28/2019 poliovirus (IPV) vaccine, inactivated (IPOL) 1995 01/11/1994 05/20/1994 02/13/1995 tetanus diphtheria pertussis (Tdap) vaccine, age 7+ yr (ADACEL, BOOSTRIX) 05/29/2012 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) History of transfusion Hypertension Liver disease care home (current) use of insulin (HCC) Transfusion history Type 1 diabetes mellitus with hyperglycemia (HCC) PAST SURGICAL HISTORY Procedure Laterality Date PAST SURGICAL HISTORY OF splenal renal shunt to treat portal hypertension PICC LINE INSERT/CONSULT 03/08/2023 PICC LINE INSERT/CONSULT 02/03/2024 FAMILY HISTORY Problem Relation Age of Onset Hypertension Mother Breast Cancer Other other (hypercholesterolemia) Other other (heart disease in female family member before age 65) Other Social History Tobacco Use Smoking status: Never Smokeless tobacco: Never Vaping Use Vaping status: Never Used Substance Use Topics Alcohol use: No Drug use: No ALLERGIES: ALLERGIES Allergen Reactions Vancomycin Itching, Rash Gets Red Man syndrome and pt if not premedicated with benadryl prior to Vancomycin infusions. Cefoxitin Rash, Other: See Comments Severe abdominal pain, diarrhea, rash Severe Abdominal Pains Linezolid Rash, GI Upset CURRENT OUTPATIENT MEDICATIONS: sulfamethoxazole-trimethoprim (BACTRIM DS) 800-160 mg per tablet Take 1 tablet by mouth two times a day for 14 days. ursodiol (ACTIGALL) 300 mg capsule take 1 capsule by mouth twice a day fluticasone-salmeterol (ADVAIR DISKUS) 500-50 mcg/dose dsdv Inhale 1 Puff as instructed two times a day. carvedilol (COREG) 25 mg tablet Take 1 tablet by mouth two times a day with meals. insulin glargine (LANTUS SOLOSTAR U-100 INSULIN) 100 unit/mL (3 mL) inject 11 units subcutaneously at bedtime Lancets Use as instructed 3x/day blood sugar diagnostic (BLOOD GLUCOSE TEST) test strip 3x/day insulin lispro (HUMALOG KWIKPEN INSULIN) 100 unit/mL Dose varies units with meals and sliding scale, using about 30 total units a day Blood-Glucose Sensor (Manyeta G7 SENSOR) jean-paul use as directed and REPLACE every 10 days Insulin Calvin, Disposable, (BD YARON 2ND GEN PEN NEEDLE) 32 gauge x 5/32 5x/day cholecalciferol, Vitamin D3, (VITAMIN D3) 1,250 mcg (50,000 unit) cap capsule Take 1 capsule by mouth two times a week. CREON 36,000-114,000- 180,000 unit delayed release capsule Take 3 capsules by mouth three times a day with meals. 3 with snacks dornase christi (PULMOZYME) 1 mg/mL nebulizer solution Inhale 2.5 mL as instructed once daily. elexacaftor 100 mg-tezacaftor 50 mg-ivacaftor 75 mg(d)/ivacaftor 150 mg(n) tablets (TRIKAFTA) Alternate between 2(starting 07/30) and 1 tablet every morning , hold evening dose ipratropium-albuterol (DUONEB) 0.5 mg-3 mg(2.5 mg base)/3 mL nebu Inhale 3 mL as instructed every 4 hours as needed for wheezing/shortness of breath. Blood-Glucose Meter monitoring kit For monitoring sugars 3x/day albuterol HFA (VENTOLIN HFA) 90 mcg/actuation inhaler inhale 2 puffs by mouth as directed every 4 hours if needed for wheezing or shortness of breath VITAMIN D2 1,250 mcg (50,000 unit) capsule Take 1 capsule by mouth two times a week. Blood-Glucose Meter,Continuous (DEXCOM G7 CODER OPERATOR) [facility] For monitoring sugars glucagon (BAQSIMI) 3 mg/actuation nasal spray Use 1 Calvin in the nose as needed. May repeat after 15 minutes using a new device if there is no response for severe low blood sugar event aztreonam lysine (CAYSTON) 75 mg/mL nebulizer solution Inhale 1 mL as instructed three times daily. 28 days on 28 days off Send altera nebulizer with each shipment Nebulizers 1 Each three times daily. cetirizine (ZYRTEC) 5 mg tablet Take 10 mg by mouth once daily. tranexamic acid (LYSTEDA) 650 mg tablet Take 2 tablets by mouth three times a day for 5 days. montelukast (SINGULAIR) 10 mg tablet Take 1 tablet by mouth daily at bedtime. Nebulizers 1 Each three times daily. REVIEW OF SYSTEMS REVIEW OF SYSTEMS GENERAL: Unintentional weight loss, Fatigue, Positive for fever to 102, malaise x3-4 weeks, See HPI NECK: Negative for lumps, goiter, pain and significant neck swelling RESPIRATORY: See HPI, cough and sputum, hemoptysis (minor, resolved) CARDIOVASCULAR: Negative for chest pain, leg swelling, hypertension, CHF or palpitations GI: No nausea, vomiting, or diarrhea PHYSICAL EXAMINATION: VITAL SIGNS: BP 142/88 Pulse 90 Temp 98 Resp 16 Ht 5' 2 (1.58m) Wt 85 lb 5.1 oz (38.7kg) SpO2 98% BMI 15.60 kg/(m^2). PHYSICAL EXAMINATION General appearance: Thin and in no acute distress, with rare cough. Had to work to produce sputum for me. Skin: Skin color, texture, turgor normal, no suspicious rashes or lesions Head: Normocephalic, no masses, lesions, tenderness or abnormalities Eyes: Anicteric sclera. Pupils are equally round and reactive to light. Extraocular movements are intact. Ears: External ears normal, canals clear Nose/Sinuses: patent, with thick white DC Oropharynx: Lips, mucosa, and tongue normal, teeth and gums normal, oropharynx normal Neck: Supple, no adenopathy; thyroid symmetric, normal size, no bruits Back: Normal exam Lungs: fair AE, no rhochi. Prolonged expiration. Much better exam than anticipated Heart: RRR without murmur, gallop, or rubs. No ectopy Abdomen: Normal abdominal exam Extremities: No deformities, edema, skin discoloration, clubbing or cyanosis. Good capillary refill. Peripheral pulses: Normal Neuro: Gait normal. Reflexes normal and symmetric. Sensation grossly intact. DATA: Diagnostic tests reviewed for today's visit were personally reviewed by me: Sputum culture results and Most recent labs and imaging results. LAST LAB RESULTS: ---Reviewed in [facility] CBC with diff: WBC 5.68 03/17/2024 RBC 2.57 03/17/2024 Hemoglobin 7.4 03/17/2024 Hematocrit 22.7 03/17/2024 MCV 88.3 03/17/2024 MCH 28.8 03/17/2024 MCHC 32.6 03/17/2024 RDW-CV 13.9 03/17/2024 Platelet Count 147 03/17/2024 MPV 9.9 03/17/2024 Neutrophils % 49.9 03/17/2024 Lymph% 27.6 03/17/2024 [place]% 7.4 03/17/2024 Eosin% 13.7 03/17/2024 Baso% 1.2 03/17/2024 Abs Neut (Segs + Bands) 2.83 03/17/2024 Abs [place] 0.42 03/17/2024 Abs Eosin 0.78 03/17/2024 Abs Baso 0.07 03/17/2024 Glucose (mg/dL) Date Value 07/16/2024 235 12/08/2015 113 Potassium Date Value 07/16/2024 5.5 mmol/L 02/24/2024 4.9 Sodium Date Value 07/16/2024 131 mmol/L 12/08/2015 139 mEq/L Chloride Date Value 07/16/2024 105 mmol/L 12/08/2015 102 mEq/L CO2 Date Value 07/16/2024 20 mmol/L 12/08/2015 31 mEq/L Creatinine Date Value 07/16/2024 2.36 mg/dL 02/24/2024 1.60 MG/DL BUN (mg/dL) Date Value 07/16/2024 24 12/08/2015 16 Anion Gap Date Value 07/16/2024 6 mmol/L 12/08/2015 11 Calcium (mg/dL) Date Value 12/08/2015 9.3 Calcium, Total (mg/dL) Date Value 07/16/2024 8.2 Protein, Total (g/dL) Date Value 07/16/2024 7.4 12/08/2015 9.5 Albumin (g/dL) Date Value 07/16/2024 2.8 12/08/2015 3.4 Bilirubin, Total Date Value 07/16/2024 0.8 mg/dL 02/24/2024 0.70 Alkaline Phosphatase Date Value 07/16/2024 788 U/L 02/24/2024 915 AST Date Value 07/16/2024 72 U/L 02/24/2024 163 ALT Date Value 07/16/2024 44 U/L 02/24/2024 96 Vitamin D 25 Hydroxy (ng/mL) Date Value 02/27/2024 32.4 ] Hemoglobin A1C (POCT) Date Value Ref Range Status 07/06/2024 6.2 (A) 4.3 - 5.6 % Final Comment: Location:[facility], [address], [address] Point of care (POC) Hemoglobin A1c (HGBA1C) testing is intended to assess glucose control and provide a management tool for patients known to have diabetes and their healthcare providers. Target HGBA1C levels may depend on specific clinical circumstances. POC HGBA1C is not intended for use as a diagnostic or screening test; laboratory-based testing should be used for diagnostic purposes. The following information is supplemental and may not be applicable to specific diabetes management situations: The POC device forder operator provides a normal range of 4.2% to 6.5% for the HGBA1C POC test. However, the [place] [employer] guidelines indicate that patients with HGBA1C in the range of 5.7% to 6.4% are at increased risk for development of diabetes and that intervention by lifestyle modification may be beneficial. A HGBA1C level greater than or equal to 6.5% is considered diagnostic of diabetes, pending confirmatory testing. Use of HGBA1C testing to evaluate glucose control may not be appropriate for patients with hemoglobin variants or other conditions (e.g. anemia) that alter red blood cell lifespan. SPIROMETRY: Reviewed in [facility] SPIROMETRY BASELINE ONLY ([id number]) - ordered on 08/18/24 ID: [id number] Name: JAY BARBER Race: White Ht: 61.61 in Wt: 85.32 lbs Age: 29 Gender: Male : 1995 Dx: Cystic fibrosis_ Smoking Hx: Non-smoker Doctor: JEAN PIERRE KILGORE Test Date: 08/18/2024 Site: [facility]: Herber Carrington PRE-BRONCH POST-BRONCH Pre LLN Pred ULN %Pred Post %Pred %Chg SPIROMETRY FVC (L) 2.40 2.78 3.58 4.39 67 FEV1 (L) 0.76 2.38 3.07 3.72 24 FEV1/FVC 0.32 0.75 0.86 0.94 37 PEF L/s (L/sec) 3.84 6.69 8.48 10.27 45 FEF50 (L/sec) 0.25 1.90 4.03 6.15 6 FIF50 (L/sec) 2.64 FEF50/FIF50 0.10 90-100 FIVC (L) 2.30 YPQ24-73 (L/sec) 0.21 2.25 3.64 5.36 5 Time (sec) 14.56 FET PEF (sec) 0.04 MACIEL (L) 0.03 Vol Extrap % (%) 1 SPIROMETRY BASELINE ONLY ([id number]) - ordered on 05/05/24 ID: [id number] Name: JAY BARBER Race: White Ht: 61.61 in Wt: 93.92 lbs Age: 28 Gender: Male : 1995 Dx: Cystic fibrosis_ Smoking Hx: Non-smoker Doctor: JEAN PIERRE KILGORE Test Date: 05/05/2024 Site: Tech: Stefani Godfrey PRE-BRONCH POST-BRONCH Pre LLN Pred ULN %Pred Post %Pred %Chg SPIROMETRY FVC (L) 2.58 2.79 3.58 4.39 71 FEV1 (L) 0.92 2.39 3.07 3.73 30 FEV1/FVC 0.36 0.75 0.86 0.94 41 PEF L/s (L/sec) 4.34 6.69 8.48 10.27 51 FEF50 (L/sec) 0.31 1.91 4.04 6.16 7 FIF50 (L/sec) 3.18 FEF50/FIF50 0.10 90-100 FIVC (L) 2.33 QFY09-94 (L/sec) 0.25 2.26 3.65 5.38 6 Time (sec) 14.78 FET PEF (sec) 0.04 MACIEL (L) 0.04 Vol Extrap % (%) 1 ID: [id number] Name: JAY BARBER Race: White Ht: 62.01 in Wt: 89.07 lbs Age: 28 Gender: Male : 1995 Dx: Cystic fibrosis with pulmonary manifestations Smoking Hx: Non-smoker Doctor: ALEX PINON Test Date: 02/25/2024 [facility] Tech: Padma Helm PRE-BRONCH POST-BRONCH Pre LLN Pred ULN %Pred Post %Pred %Chg SPIROMETRY FVC (L) 2.43 2.84 3.65 4.47 66 FEV1 (L) 0.85 2.43 3.13 3.79 27 FEV1/FVC 0.35 0.75 0.86 0.94 40 PEF L/s (L/sec) 3.77 6.74 8.56 10.38 44 FEF50 (L/sec) 0.28 1.99 4.11 6.24 6 FIF50 (L/sec) 2.74 FEF50/FIF50 0.10 90-100 FIVC (L) 2.25 BAI45-35 (L/sec) 0.23 2.29 3.70 5.44 6 Time (sec) 14.69 FET PEF (sec) 0.04 MACIEL (L) 0.03 Vol Extrap % (%) 1 SPIROMETRY BASELINE ONLY - ordered on 02/25/2024 ID: [id number] Name: JAY BARBRE Race: White Ht: 62.01 in Wt: 99.21 lbs Age: 28 Gender: Male : 1995 Dx: Cystic fibrosis_ Smoking Hx: Non-smoker Doctor: ALEX PINON Test Date: 02/12/2024 Site: Tech: Marianna Landeros PRE-BRONCH POST-BRONCH Pre LLN Pred ULN %Pred Post %Pred %Chg SPIROMETRY FVC (L) 2.46 2.84 3.65 4.47 67 FEV1 (L) 0.87 2.43 3.13 3.79 27 FEV1/FVC 0.35 0.75 0.86 0.94 41 PEF L/s (L/sec) 3.83 6.74 8.56 10.38 44 FEF50 (L/sec) 0.26 1.99 4.11 6.24 6 FIF50 (L/sec) 2.81 FEF50/FIF50 0.09 90-100 FIVC (L) 2.27 [id number] (L/sec) 0.22 2.29 3.70 5.44 5 Time (sec) 15.19 FET PEF (sec) 0.04 MACIEL (L) 0.03 Vol Extrap % (%) 1 SPIROMETRY BASELINE ONLY ([id number]) - ordered on 11/12/23 ID: [id number] Name: ELISABETHJAY Race: White Ht: 62.01 in Wt: 89.00 lbs Age: 28 Gender: Male : 1995 Dx: Cystic fibrosis with pulmonary manifestations Smoking Hx: Non-smoker Doctor: SHE PETE Test Date: 11/12/2023 Site: Tech: Orquidea Bella PRE-BRONCH POST-BRONCH Pre LLN Pred ULN %Pred Post %Pred %Chg SPIROMETRY FVC (L) 2.60 2.84 3.65 4.47 71 FEV1 (L) 0.92 2.43 3.13 3.79 29 FEV1/FVC 0.35 0.75 0.86 0.94 41 PEF L/s (L/sec) 3.88 6.74 8.56 10.37 45 FEF50 (L/sec) 0.28 2.00 4.12 6.25 6 FIF50 (L/sec) 2.61 FEF50/FIF50 0.11 90-100 FIVC (L) 2.20 [id number] (L/sec) 0.24 2.30 3.71 5.45 6 Time (sec) 14.86 FET PEF (sec) 0.04 MACIEL (L) 0.04 Vol Extrap % (%) 2 SPIROMETRY BASELINE ONLY ([id number]) - ordered on 09/24/23 ID: [id number] Name: JAY BARBER Race: White Ht: 62.01 in Wt: 87.52 lbs Age: 28 Gender: Male : 1995 Dx: Cystic fibrosis_ Smoking Hx: Non-smoker Doctor: JEAN PIERRE KILGORE Test Date: 09/24/2023 [facility] Tech: Padma Helm PRE-BRONCH POST-BRONCH Pre LLN Pred ULN %Pred Post %Pred %Chg SPIROMETRY FVC (L) 2.71 2.84 3.65 4.47 74 FEV1 (L) 1.03 2.44 3.13 3.80 33 FEV1/FVC 0.38 0.75 0.86 0.94 44 PEF L/s (L/sec) 4.03 6.74 8.56 10.37 47 FEF50 (L/sec) 0.36 2.00 4.13 6.25 8 FIF50 (L/sec) 2.47 FEF50/FIF50 0.15 90-100 FIVC (L) 2.43 [id number] (L/sec) 0.29 2.30 3.71 5.46 7 Time (sec) 14.96 FET PEF (sec) 0.04 MACIEL (L) 0.03 Vol Extrap % (%) 1 SPIROMETRY BASELINE ONLY ([id number]) - ordered on 07/02/23 ID: [id number] Name: JAY BARBER Race: White Ht: 62.01 in Wt: 86.86 lbs Age: 28 Gender: Male : 1995 Dx: Cystic fibrosis_ Smoking Hx: Non-smoker Doctor: NABOR MAS Test Date: 07/24/2023 Site: Tech: Alicia Coello PRE-BRONCH POST-BRONCH Pre LLN Pred ULN %Pred Post %Pred %Chg SPIROMETRY FVC (L) 2.79 2.85 3.65 4.47 76 FEV1 (L) 1.15 2.44 3.14 3.80 36 FEV1/FVC 0.41 0.75 0.86 0.95 48 PEF L/s (L/sec) 4.29 6.74 8.56 10.37 50 FEF50 (L/sec) 0.40 2.01 4.13 6.26 9 FIF50 (L/sec) 3.24 FEF50/FIF50 0.12 90-100 FIVC (L) 2.30 [id number] (L/sec) 0.31 2.31 3.72 5.47 8 Time (sec) 15.62 FET PEF (sec) 0.05 MACEIL (L) 0.04 Vol Extrap % (%) 1 MICROBIOLOGY: Reviewed MICROBIOLOGY SNAPSHOT b. Cepacia complex; MRSA Lab Results Component Value Date CULT Rare Burkholderia cepacia complex (A) 05/05/2024 CULT Many normal respiratory vicky (A) 05/05/2024 CULT Rare Sphingobacterium multivorum (A) 05/05/2024 CULT No Acid Fast Bacilli isolated after 42 days 03/25/2024 CULT No Fungus isolated after 28 days 03/25/2024 CULT Few Burkholderia vietnamiensis (A) 03/25/2024 CULT Rare normal respiratory vicky (A) 03/25/2024 Written and verbal health teaching given to patient, patient verbalizes understanding and agrees with treatment plan. Return to clinic at [facility] in 1-2 weeks, with spirometry (spirometry baseline). I spent a total of 120 minutes on the date of the service which included preparing to see the patient, [id number] patient care, completing clinical documentation, obtaining and/or reviewing separately obtained history, performing a medically appropriate examination, ordering medications, tests, or procedures, communicating with other HCPs (not separately reported), and care coordination (not separately reported). Electronically Signed: August 18, 2024 documented in this encounter [facility] 08-18-2024 Note HNO ID: [id number] Author: HERBER CARRINGTON RRT Service: ? Author Type: Registered Resp Therapist Type: Progress Notes Filed: 08/18/2024 13:28 Note Text: PULM FUNCTION: Provider: Jean Pierre Kilgore MD Spirometry: 1 [facility] 08-18-2024 History of Presen t illness Narrative PULM FUNCTION: Provider: Jean Pierre Kilgore MD Spirometry: 1 documented in this encounter [facility] 08-13-2024 Telephone encounter Note Patient would like to hold off on inhaled meropenem at this time. Will re-evaluate how he's feeling when he sees Dr. Kilgore next week. [facility] Work Phone: 08-13-2024 Miscellaneous Notes Patient would like to hold off on inhaled meropenem at this time. Will re-evaluate how he's feeling when he sees Dr. Kilgore next week. Discussed with patient that the other oral option is Levaquin - patient believes this has also caused him GI upset in the past. Explained the other option would be inhaled Meropenem- await response from patient. documented in this encounter [facility] 08-13-2024 Telephone encounter Note Discussed with patient that the other oral option is Levaquin - patient believes this has also caused him GI upset in the past. Explained the other option would be inhaled Meropenem- await response from patient. [facility] 08-12-2024 Note [facility] 08-12-2024 History of Presen t illness Narrative CF Pre-Clinic Checklist PRE-TRANSPLANT Last CF clinic visit date: 05/05/24 Dunia enriquez Microbiology: b. 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 ([birth year]1994 - in [address]) Other medical complications: ---Advanced stage lung disease ---Chronic infection with Pseudomonas, MRSA, 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, Trichosporonosis, Aspergillus ---Pancreatic insufficiency - on enzymes with Creon ---CFRD - follows with endocrinology ---CF Liver disease - complicated by portal hypertension, esophageal varices ---Chronic sinusitis ---Anxiety/Depression Exacerbations in the last 12 months: -Hospital Admit: 02/03/24 - 02/16/24 for CF Exacerbation and Upper GIB -> treated with IV Meropenem, Minocycline and Vancomycin while inpatient -> discharged home on IV Meropenem and IV Vancomycin through 02/23/24 -Hospital Admit: 07/02/23-07/29/23 treated with Vancomycin through 07/06, Minocycline through 07/22, and Meropenum through 07/24 (not discharged home on any IV abx) -Hospital Admit: 03/07/23-03/11/23 -> discharged on Home IV abx Vanc and Larisa through 04/01/23 FEV1%: 30% on 05/05/24 FEV1%trend: 27% on 02/25/24; 27% on 02/12/24 ; 29% on 09/24/23 ; 33% on 09/24/23; 36% on 07/24/23 ; 23% on 07/17/23 ; 23% on 07/10/23 ; 23% on 07/02/23 BMI: 17.10 kg BMI Trend: increased from 15.56 kg/m RD ANNUAL VISIT Needed: completed 05/05/24 RT ANNUAL VISIT Needed: completed 05/05/24 ANNUAL VISIT Needed:completed 05/05/24 Mental health screen: completed 05/05/24 ANNUAL Labs Needed: Completed on 02/27/24 Last OGTT/CFRD: +CFRD -> Follows with Tyler Ramirez, ACQUISITION ANALYST-last OV 07/06/24 Dexa: Completed on 09/24/23 -> Lowest T-score is -3.1 in left femoral neck (repeat in August 2024 at [facility])-order is in. Scheduled for [place] T/Z = > -1.0 - every 5 years T/Z = -1.0 to -2.0 - every 2-4 years T/Z = < -2.0 - every 1 year Colonoscopy (age > 35) N/A WNL-every 5 years Abnormal-every 3 or sooner Abdominal Ultra Sound: 05/07/24-MRI BOWLING/MARYAM- IMPRESSION: Multifocal segmental discontinuous bile duct dilation as described, most prominent in hepatic segment II, concerning for PBC or PSC. Cirrhotic liver with portal hypertension including multiple varices and mild splenomegaly but only trace ascites. No focal hepatic mass. Pancreatic changes consistent with sequela of cystic fibrosis. RUQ US last completed on 07/09/23 -> Cirrhotic liver morphology with hepatic steatosis. (Every 2 years if LFT's normal) Chronic Medications (List why If not on medication): CFTR modulators: Trikafta - on adjusted dosing due to Cirrhosis - reports taking 2 orange pills on even days of the month and 1 orange pill on odd days of the month, No blue pills Pulmozyme: once daily Hypertonic saline: has at home but not currently using Chronic Azithromycin (anti-inflammatory): No (on hold due to prior NTM) Inhaled Abx: [place] Ibuprofen: No Referral to Endo: follows with Stephie Ramirez CNP Referral to Transplant: Lung and liver discussed extensively with patient during July 2023 hospital admission - pt eventually deferred at hospital discharge EPIC/Phone Messages since last visit: 07/19/24-f/u with GI-PLAN -Continue Ursodiol 600 mg daily (15 mg/kg/day) to help with bile duct patency/recovery -Discussed importance of liver biopsy to confirm diagnosis of cirrhosis, evaluate portal pressures, and ensure that patient does not have a coexisting disease process such as PBC or small-duct PSC -If patient agrees to TJ liver biopsy and has evidence of CSPH (HVPG>10 mm Hg), will need to consider use of carvedilol 3.125 mg q12h to prevent decompensation -Per patient request, will forward clinic note from today to 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 Transjugular) as patient has concerns that if he were to be intubated, he may have a diffucult extubation 07/19/24-pt contacted [facility] to obtain info about their center/clinics Plan for visit: - Perdido ordered and scheduled -Needs CF Resp Cult and AFB - Needs repeat Dexa Aug 2024 in [facility]? 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 States he has coughed up about 4 oz total over the last two days. He started the TXA he had left yesterday and it has since slowed down. States a few weeks ago he started to have an increased cough but that it eventually went away until two days ago when he also experienced the hemoptysis. Patient states he was hoping to hold out until his appointment with Dr. Kilgore next 08/18/24, but was agreeable to having an oral antibiotic on hand to possibly start this week if his symptoms do not improve. Script for Bactrim sent to his local pharmacy. Will notify office if he needs anything prior to his appt with Dr. Kilgore next week. Patient started coughing up blood around 4pm yesterday. He started taking the tranexamic tablets but he only has a enough for today and would like a new prescription ordered. [facility] [phone] Patient's request for medication is as follows: Requested Prescriptions Pending Prescriptions Disp Refills tranexamic acid (LYSTEDA) 650 mg tablet 30 tablet 3 Sig: Take 2 tablets by mouth three times a day for 5 days. Prescription(s) as above. Please process accordingly. Obed Hoff documented in this encounter [facility] 08-11-2024 Telephone encounter Note Spoke with patient. States he has coughed up about 4 oz total over the last two days. He started the TXA he had left yesterday and it has since slowed down. States a few weeks ago he started to have an increased cough but that it eventually went away until two days ago when he also experienced the hemoptysis. Patient states he was hoping to hold out until his appointment with Dr. Kilgore next 08/18/24, but was agreeable to having an oral antibiotic on hand to possibly start this week if his symptoms do not improve. Script for Bactrim sent to his local pharmacy. Will notify office if he needs anything prior to his appt with Dr. Kilgore next week. [facility] 08-11-2024 Telephone encounter Note Patient started coughing up blood around 4pm yesterday. He started taking the tranexamic tablets but he only has a enough for today and would like a new prescription ordered. [facility] [phone] Patient's request for medication is as follows: Requested Prescriptions Pending Prescriptions Disp Refills tranexamic acid (LYSTEDA) 650 mg tablet 30 tablet 3 Sig: Take 2 tablets by mouth three times a day for 5 days. Prescription(s) as above. Please process accordingly. Obed Hoff [facility] 07-26-2024 Note [facility] 07-26-2024 History of Presen t illness Narrative Images from the original note were not included. NAME: Jay Barber AGE: [age] year old Patient is referred in consultation by for an opinion regarding abnormal liver test and my final recommendations will be communicated back to the requesting physician by way of shared Medical Record. This visit was conducted as a virtual visit. 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 Patient has a chronically elevated AP for many years, with an acute rise around 800s-900s during most recent admission for CF related pulmonary complications in January 2024. At that time, I recommended a MRCP to evaluate patient's bile ducts for ductopenia and biliary duct obliteration from possible mucous plugging of these ducts. Patient states that his energy levels have improved since his admission in January 2024. Liver enzyme trend has been as follows: Component Ref Range & Units 10 d ago (07/16/24) 4 mo ago (03/17/24) 4 mo ago (03/05/24) 5 mo ago (02/27/24) 5 mo ago (02/24/24) 5 mo ago (02/24/24) 5 mo ago (02/16/24) Albumin 3.9 - 4.9 g/dL 2.8 Low 2.9 Low 2.8 Low 2.6 Low 1.9 Low Bilirubin, Total 0.2 - 1.3 mg/dL 0.8 1.0 1.0 0.8 0.70 R 0.7 Bilirubin, Conjugated <0.2 mg/dL 0.3 High Alkaline Phosphatase 38 - 113 U/L 788 High 685 High 807 High 913 High 915 Abnormal R 774 High AST 14 - 40 U/L 72 High 70 High 71 High 111 High 163 Abnormal R 57 High ALT 10 - 54 U/L 44 51 54 73 High 96 Abnormal R 27 Recent updates: Patient had MRCP completed on 05/07/224 and it revealed the following: Multifocal segmental discontinuous bile duct dilation as described, most prominent in hepatic segment II, concerning for PBC or PSC. Cirrhotic liver with portal hypertension including multiple varices and mild splenomegaly but only trace ascites. No focal hepatic mass. Pancreatic changes consistent with sequela of cystic fibrosis. Although portal message had been sent to patient regarding MRCp results and need for liver biopsy to better evaluate cholestatic disease pattern, patient notes that he did not receive the message properly, but is open to having a liver biopsy to further evaluate his liver disease He denies any issues with abdominal pain, fever/chills, chest pain, diarrhea, shortness of breath. Has had a loss of appetite for the past three-four weeks, but no dyspepsia symptoms. 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) No date: History of transfusion No date: Hypertension No date: Liver disease No date: care home (current) use of insulin (HCC) No date: Transfusion history No date: Type 1 diabetes mellitus with hyperglycemia (HCC) Social History Tobacco Use Smoking status: Never Smokeless tobacco: Never Vaping Use Vaping status: Never Used Substance Use Topics Alcohol use: No Drug use: No Current Outpatient Medications Medication Sig Dispense Refill ursodiol (ACTIGALL) 300 mg capsule take 1 capsule by mouth twice a day 30 capsule 2 fluticasone-salmeterol (ADVAIR DISKUS) 500-50 mcg/dose dsdv Inhale 1 Puff as instructed two times a day. carvedilol (COREG) 25 mg tablet Take 1 tablet by mouth two times a day with meals. 30 tablet 11 insulin glargine (LANTUS SOLOSTAR U-100 INSULIN) 100 unit/mL (3 mL) inject 11 units subcutaneously at bedtime 15 mL 3 Lancets Use as instructed 3x/day 300 Each 3 blood sugar diagnostic (BLOOD GLUCOSE TEST) test strip 3x/day 300 Each 3 insulin lispro (HUMALOG KWIKPEN INSULIN) 100 unit/mL Dose varies units with meals and sliding scale, using about 30 total units a day 15 mL 11 Blood-Glucose Sensor (Manyeta G7 SENSOR) jean-paul use as directed and REPLACE every 10 days 3 Each 11 Insulin Calvin, Disposable, (BD YARON 2ND GEN PEN NEEDLE) 32 gauge x 5/32 5x/day 500 Each 3 cholecalciferol, Vitamin D3, (VITAMIN D3) 1,250 mcg (50,000 unit) cap capsule Take 1 capsule by mouth two times a week. 8 capsule 3 tranexamic acid (LYSTEDA) 650 mg tablet Take 2 tablets by mouth three times a day for 5 days. 30 tablet 3 CREON 36,000-114,000- 180,000 unit delayed release capsule Take 3 capsules by mouth three times a day with meals. 3 with snacks 1350 capsule 5 dornase christi (PULMOZYME) 1 mg/mL nebulizer solution Inhale 2.5 mL as instructed once daily. 225 mL 3 elexacaftor 100 mg-tezacaftor 50 mg-ivacaftor 75 mg(d)/ivacaftor 150 mg(n) tablets (TRIKAFTA) Alternate between 2(starting 07/30) and 1 tablet every morning , hold evening dose 84 Each 11 ipratropium-albuterol (DUONEB) 0.5 mg-3 mg(2.5 mg base)/3 mL nebu Inhale 3 mL as instructed every 4 hours as needed for wheezing/shortness of breath. 360 mL 11 Blood-Glucose Meter monitoring kit For monitoring sugars 3x/day 1 Each 1 albuterol HFA (VENTOLIN HFA) 90 mcg/actuation inhaler inhale 2 puffs by mouth as directed every 4 hours if needed for wheezing or shortness of breath 54 g 11 VITAMIN D2 1,250 mcg (50,000 unit) capsule Take 1 capsule by mouth two times a week. 24 capsule 3 Blood-Glucose Meter,Continuous (DEXCOM G7 CODER OPERATOR) misc For monitoring sugars 1 Each 1 glucagon (BAQSIMI) 3 mg/actuation nasal spray Use 1 Calvin in the nose as needed. May repeat after 15 minutes using a new device if there is no response for severe low blood sugar event 2 Each 3 aztreonam lysine (CAYSTON) 75 mg/mL nebulizer solution Inhale 1 mL as instructed three times daily. 28 days on 28 days off Send altera nebulizer with each shipment 84 mL 6 Nebulizers 1 Each three times daily. 1 Each 11 cetirizine (ZYRTEC) 5 mg tablet Take 10 mg by mouth once daily. montelukast (SINGULAIR) 10 mg tablet Take 1 tablet by mouth daily at bedtime. 90 tablet 5 Nebulizers 1 Each three times daily. 1 Each 0 No current facility-administered medications for this visit. ALLERGIES Allergen Reactions Vancomycin Itching, Rash Gets Red Man syndrome and pt if not premedicated with benadryl prior to Vancomycin infusions. Cefoxitin Rash, Other: See Comments Severe abdominal pain, diarrhea, rash Severe Abdominal Pains Linezolid Rash, GI Upset FAMILY HISTORY Liver Problems: No FAMILY HISTORY Problem Relation Age of Onset Hypertension Mother Breast Cancer Other other (hypercholesterolemia) Other other (heart disease in female family member before age 65) Other GI SPECIFIC ROS Regurgitation: No Chest pain: No Filling up quickly at meals: No Loss of appetite: No Nausea: No Vomiting: No Abdominal pain: No Recent change in bowel movements: No Bloody or black, bowel movements: No Constipation: No Diarrhea: No Loss of control of bowel movements: No Night sweats, fever, chills: No Thought or memory problems: No Fluid in abdomen (ascites): No Prominent leg swelling: No Vomiting blood: No Recent change in weight: No PHYSICAL EXAMINATION There were no vitals taken for this visit. General Appearance: Well appearing, alert, in no acute distress, thin Eyes: no icterus Abdomen: not distended Skin: no jaundice Neuro:alert, oriented x 3, pleasant and in no acute distress Recent Labs: Hemoglobin (g/dL) Date Value 03/17/2024 7.4 02/24/2024 7.5 Hematocrit (%) Date Value 03/17/2024 22.7 02/24/2024 23.1 WBC Date Value 03/17/2024 5.68 k/uL 02/24/2024 4.0 K/uL Glucose (mg/dL) Date Value 07/16/2024 235 12/08/2015 113 Potassium Date Value 07/16/2024 5.5 mmol/L 02/24/2024 4.9 Sodium Date Value 07/16/2024 131 mmol/L 12/08/2015 139 mEq/L Chloride Date Value 07/16/2024 105 mmol/L 12/08/2015 102 mEq/L CO2 Date Value 07/16/2024 20 mmol/L 12/08/2015 31 mEq/L Creatinine Date Value 07/16/2024 2.36 mg/dL 02/24/2024 1.60 MG/DL BUN (mg/dL) Date Value 07/16/2024 24 12/08/2015 16 Anion Gap Date Value 07/16/2024 6 mmol/L 12/08/2015 11 Calcium (mg/dL) Date Value 12/08/2015 9.3 Calcium, Total (mg/dL) Date Value 07/16/2024 8.2 Albumin (g/dL) Date Value 07/16/2024 2.8 (L) Bilirubin, Total (mg/dL) Date Value 07/16/2024 0.8 Bilirubin, Conjugated (mg/dL) Date Value 07/16/2024 0.3 (H) Alkaline Phosphatase (U/L) Date Value 07/16/2024 788 (H) AST (U/L) Date Value 07/16/2024 72 (H) ALT (U/L) Date Value 07/16/2024 44 Protein, Total (g/dL) Date Value 07/16/2024 7.4 MELD 3.0: 10 at 02/27/2024 1:16 PM MELD-Na: 6 at 02/27/2024 1:16 PM Calculated from: Serum Creatinine: 1.02 mg/dL at 02/27/2024 1:16 PM Serum Sodium: 134 mmol/L at 02/27/2024 1:16 PM Total Bilirubin: 0.8 mg/dL (Using min of 1 mg/dL) at 02/27/2024 1:16 PM Serum Albumin: 2.6 g/dL at 02/27/2024 1:16 PM INR(ratio): 1.0 at 02/27/2024 1:16 PM Age at listing (hypothetical): 28 years Sex: Male at 02/27/2024 1:16 PM Assessment PLAN Expand All Collapse All NAME: Jay Barber AGE: [age] year old Patient is referred in consultation by for an opinion regarding abnormal liver test and my final recommendations will be communicated back to the requesting physician by way of shared Medical Record. 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 Patient has a chronically elevated AP for many years, with an acute rise around 800s-900s during most recent admission for CF related pulmonary complications in January 2024. At that time, I recommended a MRCP to evaluate patient's bile ducts for ductopenia and biliary duct obliteration from possible mucous plugging of these ducts. Patient has still not had the MRCP scheduled as he was not sure if he still needs to proceed with it. If unremarkable, our plan was to obtain a transjugular liver biopsy to evaluate for small duct PSC and microscopic evidence of cholestatic changes/bile duct obliteration. Patient states that his energy levels have improved since his admission. He denies fever/chills, chest pain, shortness of breath, GI bledding, abdominal pain, or lower extremity swelling. Liver enzyme trend has been as follows: Component Ref Range & Units 3 wk ago (03/17/24) 1 mo ago (03/05/24) 1 mo ago (02/27/24) 1 mo ago (02/24/24) 1 mo ago (02/16/24) Protein, Total 6.3 - 8.0 g/dL 8.0 8.5 High 8.1 High 6.9 Albumin 3.9 - 4.9 g/dL 2.9 Low 2.8 Low 2.6 Low 1.9 Low Calcium, Total 8.5 - 10.2 mg/dL 8.9 9.3 9.0 8.3 Low Bilirubin, Total 0.2 - 1.3 mg/dL 1.0 1.0 0.8 0.7 Alkaline Phosphatase 38 - 113 U/L 685 High 807 High 913 High 915 Abnormal R 774 High AST 14 - 40 U/L 70 High 71 High 111 High 163 Abnormal R 57 High ALT 10 - 54 U/L 51 54 73 High 96 Abnormal R 27 Glucose 74 - 99 mg/dL 81 392 High CM 120 High CM 183 High PAST SURGICAL HISTORY PAST SURGICAL HISTORY Procedure Laterality Date PAST SURGICAL HISTORY OF splenal renal shunt to treat portal hypertension PICC LINE INSERT/CONSULT 03/08/2023 PICC LINE INSERT/CONSULT 02/03/2024 PAST MEDICAL HISTORY 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 carvedilol (COREG) 25 mg tablet Take 1 tablet by mouth two times a day with meals. 30 tablet 11 insulin glargine (LANTUS SOLOSTAR U-100 INSULIN) 100 unit/mL (3 mL) inject 11 units subcutaneously at bedtime 15 mL 3 Lancets Use as instructed 3x/day 300 Each 3 blood sugar diagnostic (BLOOD GLUCOSE TEST) test strip 3x/day 300 Each 3 insulin lispro (HUMALOG KWIKPEN INSULIN) 100 unit/mL Dose varies units with meals and sliding scale, using about 30 total units a day 15 mL 11 Blood-Glucose Sensor (Manyeta G7 SENSOR) jean-paul use as directed and REPLACE every 10 days 3 Each 11 polyethylene glycol 3350 17 gram packet Take 1 Packet by mouth once daily as needed. Dissolve dose in 4 - 8 ounces of liquid and take as directed. pantoprazole DR (PROTONIX) 40 mg tablet Take 1 tablet by mouth two times a day before meals at 6 am and 4 pm. 60 tablet 1 Insulin Calvin, Disposable, (BD YARON 2ND GEN PEN NEEDLE) 32 gauge x 5/32 5x/day 500 Each 3 zinc sulfate 220 mg capsule Take 1 capsule by mouth once daily for 2 weeks and 2 capsules per week thereafter 30 capsule 3 cholecalciferol, Vitamin D3, (VITAMIN D3) 1,250 mcg (50,000 unit) cap capsule Take 1 capsule by mouth two times a week. 8 capsule 3 tranexamic acid (LYSTEDA) 650 mg tablet Take 2 tablets by mouth three times a day for 5 days. 30 tablet 3 CREON 36,000-114,000- 180,000 unit delayed release capsule Take 3 capsules by mouth three times a day with meals. 3 with snacks 1350 capsule 5 dornase christi (PULMOZYME) 1 mg/mL nebulizer solution Inhale 2.5 mL as instructed once daily. 225 mL 3 elexacaftor 100 mg-tezacaftor 50 mg-ivacaftor 75 mg(d)/ivacaftor 150 mg(n) tablets (TRIKAFTA) Alternate between 2(starting 07/30) and 1 tablet every morning , hold evening dose 84 Each 11 ipratropium-albuterol (DUONEB) 0.5 mg-3 mg(2.5 mg base)/3 mL nebu Inhale 3 mL as instructed every 4 hours as needed for wheezing/shortness of breath. 360 mL 11 Blood-Glucose Meter monitoring kit For monitoring sugars 3x/day 1 Each 1 albuterol HFA (VENTOLIN HFA) 90 mcg/actuation inhaler inhale 2 puffs by mouth as directed every 4 hours if needed for wheezing or shortness of breath 54 g 11 Blood-Glucose Meter,Continuous (DEXCOM G7 CODER OPERATOR) [facility] For monitoring sugars 1 Each 1 glucagon (BAQSIMI) 3 mg/actuation nasal spray Use 1 Calvin in the nose as needed. May repeat after 15 minutes using a new device if there is no response for severe low blood sugar event 2 Each 3 aztreonam lysine (CAYSTON) 75 mg/mL nebulizer solution Inhale 1 mL as instructed three times daily. 28 days on 28 days off Send altera nebulizer with each shipment 84 mL 6 Nebulizers 1 Each three times daily. 1 Each 11 cetirizine (ZYRTEC) 5 mg tablet Take 10 mg by mouth once daily. montelukast (SINGULAIR) 10 mg tablet Take 1 tablet by mouth daily at bedtime. 90 tablet 5 Nebulizers 1 Each three times daily. 1 Each 0 ursodiol (ACTIGALL) 300 mg capsule Take 1 capsule by mouth two times a day. 30 capsule 2 bumetanide (BUMEX) 1 mg tablet Take 1 tablet by mouth once daily. (Patient not taking: Reported on 04/07/2024) 30 tablet 1 vitamin A (AQUASOL A) 10,000 unit capsule Take 1 capsule by mouth once daily. (Patient not taking: Reported on 04/07/2024) 30 capsule 1 PRESERVISION AREDS-2 250-90-40-1 mg take 1 capsule by mouth twice a day with food (Patient not taking: Reported on 04/07/2024) Vit A,C,A-Earv-Dzvkld (PRESERVISION AREDS) 4,296 mcg-226 mg-90 mg cap Take 1 capsule by mouth twice daily. Take with food. 60 capsule 0 VITAMIN D2 1,250 mcg (50,000 unit) capsule Take 1 capsule by mouth two times a week. 24 capsule 3 No current facility-administered medications for this visit. ALLERGIES ALLERGIES Allergen Reactions Vancomycin Itching, Rash Gets Red Man syndrome and pt if not premedicated with benadryl prior to Vancomycin infusions. Cefoxitin Rash, Other: See Comments Severe abdominal pain, diarrhea, rash Severe Abdominal Pains Linezolid Rash, GI Upset FAMILY HISTORY Liver Problems: No FAMILY HISTORY FAMILY HISTORY Problem Relation Age of Onset Hypertension Mother Breast Cancer Other other (hypercholesterolemia) Other other (heart disease in female family member before age 65) Other GI SPECIFIC ROS 14 point ROS reviewed and negative except as noted above PHYSICAL EXAMINATION BP 135/78 Pulse 87 Temp (Src) 99.5 (Temporal) Ht 5' 2 (1.58m) Wt 94 lb 12.8 oz (43.0kg) SpO2 97% BMI 17.33 kg/(m^2). General Appearance: Well appearing, alert, in no acute distress, well-hydrated, A/O x 3 Eyes: no icterus Skin: no jaundice Neuro:alert, oriented x 3, pleasant and in no acute distress .MELD 3.0: 10 at 02/27/2024 1:16 PM MELD-Na: 6 at 02/27/2024 1:16 PM Calculated from: Serum Creatinine: 1.02 mg/dL at 02/27/2024 1:16 PM Serum Sodium: 134 mmol/L at 02/27/2024 1:16 PM Total Bilirubin: 0.8 mg/dL (Using min of 1 mg/dL) at 02/27/2024 1:16 PM Serum Albumin: 2.6 g/dL at 02/27/2024 1:16 PM INR(ratio): 1.0 at 02/27/2024 1:16 PM Age at listing (hypothetical): 28 years Sex: Male at 02/27/2024 1:16 PM Assessment Jay Barber is a 28 year old male with PMH of cystic fibrosis, DM related to CF, CF-related advanced liver disease c/b pHTN c/b ascites, EV c/b UGIB (2009, 2011) requiring surgical splenorenal shunt creation (2011, [facility]), h/o G1EV and EV (last EGD 07/16/23- small EV) presenting for follow-up consultation. #Elevated AP-differentials include bile duct obliteration from known CF vs. less likely PBC vs. 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 Transjugular) as patient has concerns that if he were to be intubated, he may have a diffucult extubation Return to office in 3 months. During this patient visit I have spent approximately 30 minutes out of 45 minutes in counseling regarding treatment options, review of test results and coordinating care. Tia Lindo MD July 19, 2024 10:37 AM documented in this encounter [facility] 07-06-2024 Instructions Stephie Ramirez APRN.ARIAS - 07/06/2024 1:58 PM EDT Patient educated to have ophthalmology visits at least once a year. documented in this encounter [facility] 07-06-2024 Note HNO ID: [id number] Author: STEPHIE RAMIREZ APRN.CNP Service: ? Author Type: Nurse Practitioner Type: Progress Notes Filed: 07/07/2024 13:14 Note Text: Subjective Date of encounter: 07/06/2024 Jay Barber (1995), is a 28 year old male who presents for Diabetes management Important Lab History: HBA1C:10/2013: 10.8%, 12/2013: 7.4%, 03/2014: 9.6%, 03/2014: 8.1%, 05/2014: 6.7%, 05/2015: 6.9%, 08/2015: 8.4%, 12/2015: HbA1c 8.3%, 03/2016: 8.9%, 05/2016: 7.0%, 01/2018: 9.6%, 05/2018: 10.3%, 08/2018: 8.2%, 10/2018: 7.9%, 01/2019: 8.1%, 03/2019: 6.6%, 07/2019: 6.5%, 12/2019: 6.9%, 07/2020: 6.6%, 08/2020: 6.4%, 01/2021: HbA1C 8.3%, 03/2021: 8.3%, 05/2021: 7.4%, 08/2021: 7.4%, 12/2021: 7.5%, 07/2022: 8.6%, 10/2022: 8.4%, 03/2023: 7.7%, 07/2023: 6.9%, 10/2023: 6.4%, 01/2024: 6.3%, 03/2024: 6.1%, 07/2024: 6.2% Thyroid Function Testin10/2013: TSH 2.29 (0.358-3.740), free T4 1.02 (0.76-1.46), 12/2015: TSH 1.970 (0.358-3.740 uIU/mL), free T4 1.15 (0.76-1.46 ng/dL), 01/2018: TSH 1.735 (0.35-5.5), 12/2018: TSH 1.137 (0.35-5.5), 05/2019: TSH 2.293 (0.35-5.5), 01/2020: TSH 1.754 (0.35-5.5), free T4 1.2 (0.9-1.5), 01/2021: TSH 1.9 (0.27-4.2 uIU/mL), free T4 1.2 (0.9-1.7), 12/2021: TSH 3.41 (0.27-4.2 uIU/mL), free T4 1.1 (0.9-1.7), 07/2023: TSH 2.35 (0.27-4.2 uIU/mL), Renal Function Testin08/2013: creatinine 0.7, 12/2015: creatinine 0.69 mg/dL, eGFR >60,), 05/2018: Creatinine 0.72, 01/2019: Creatinine 0.86, 07/2019: Creatinine 0.73, 07/2020: Creatinine 0.65, 10/2020: Creatinine 0.64, 01/2021: Creatinine 0.81, 03/2021: Creatinine 0.73, 12/2021: Creatinine 0.64, 12/2022: Creatinine 0.78, 03/2023: Creatinine 0.83, 08/2023: Creatinine 1.13 eGFR 90, 10/2023: Creatinine 1.04, 03/2024: Creatinine 1.37 eGFR 71, 03/2024: Creatinine 1.02 Urine for Microalbumin:10/2013: Microalbumin:Creatinine ratio ok,12/2015: microalbumin : creatinine ratio ok, 08/2017: Microalbumin:Creatinine Ratio ok, 10/2018: Microalbumin:Creatinine Ratio 535, 01/03/2020: Microalbumin:Creatinine Ratio 650, 01/2021: Microalbumin:Creatinine Ratio 361. Improved but above goal. Jay states he has used lisinopril in the past but this increased his potassium too much and it was discontinued. He will inquire further with his CF providers about losartan. I advised him to make an appointment with nephrology as we had previously discussed., 03/19/2021: Microalbumin:Creatinine Ratio 1220, 08/2021: still hasn't made appointment with kidney specialist, stressed the importance of this to prevent further kidney damage., 10/2022: prot/creat ratio in epic, making appointment with nephrology, 07/2023: prot/creat ratio in epic Lipid Profile:10/2013: TC 111, HDL 42, LDL 56, TG 56, 12/2015: TC 122, HDL 52, LDL 60, TG 49, 10/2018: TC 160, HDL 72, LDL 71, TG 83, 01/03/2020: TC 253 HDL 133 LDL 112 TG 38, 01/2021: TC 179 HDL 115 LDL 54 TG 51, 03/2021: TC 233 HDL 143 LDL 84 TG 32, 03/2024; TC 147 HDL 72 LDL 64 TG 54 Liver Profile:08/2013: AST 93, ALT 65, Alkaline Phosphatase 811, 12/2015: AST 110 (9-37 U/L), ALT 164 (12-78 U/L), alkaline phosphatase 807 (46-116 U/L), Bilirubin, total 1.3 (0.2-1.0, mg/dL, 05/2018: results in care everywhere, 12/2019: results in care everywhere, 01/2020: labs in [facility], 07/2020; Alkaline Phosphatase 725 (45-117), ALT 77 (16-61), AST 163 (15-37), 12/2020: results in care everywhere., 03/2021: results In care everywhere, 12/2021: Alkaline Phosphatase 918 (38-113), bone percent 13.9%, liver percent 86.1 , 12/2022: liver function monitored by CF providers, 03/2023: in [facility], 08/2023: LFTS in [facility], 10/2023: LFTS in [facility], 03/2024: liver test in [facility] Dilated Eye Exam: Patient educated to have ophthalmology visits at least once a year. 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 08/2013: New patient visit for Cystic Fibrosis related Diabetes Previous diabetes related labs from [facility] and [facility]-everywhere systems reviewed prior to today's office visit. Any changes made at our last diabetes management visit were abstracted accordingly (if applicable). Today's Office Visit: Jaydon Dennis: reminded patient to make appointment with for osteoporosis again 03/2024 Nephrology: following Hepatology: following. Hematology: had appointment per patient. Lipids: advised to discuss with CF providers, may not be able to treat with high liver enzymes. Endocrinology: we manage patients CFRD only. BP: above goal today. Advised to monitor at home and report to CF providers if above goal. self monitoring blood glucose data : see dexcom report. Average 14 day SG 164 predicted gmi 7.2%, 63% TIR 3% low range. Improving. Occasional late evening elevations. Occasional missed dosages per patient. Diet: can be high in carbs per patient due to CF diet to gain weight per patient.. Exercise: as tolerated History of hypoglycemia unawareness,-using dexcom now. Likes the g7 Insulin pump: not interested at this time until its approv (more content not included)... [facility] 07-06-2024 History of Presen t illness Narrative Subjective Date of encounter: 07/06/2024 Jay Barber (1995), is a 28 year old male who presents for Diabetes management Important Lab History: HBA1C:10/2013: 10.8%, 12/2013: 7.4%, 03/2014: 9.6%, 03/2014: 8.1%, 05/2014: 6.7%, 05/2015: 6.9%, 08/2015: 8.4%, 12/2015: HbA1c 8.3%, 03/2016: 8.9%, 05/2016: 7.0%, 01/2018: 9.6%, 05/2018: 10.3%, 08/2018: 8.2%, 10/2018: 7.9%, 01/2019: 8.1%, 03/2019: 6.6%, 07/2019: 6.5%, 12/2019: 6.9%, 07/2020: 6.6%, 08/2020: 6.4%, 01/2021: HbA1C 8.3%, 03/2021: 8.3%, 05/2021: 7.4%, 08/2021: 7.4%, 12/2021: 7.5%, 07/2022: 8.6%, 10/2022: 8.4%, 03/2023: 7.7%, 07/2023: 6.9%, 10/2023: 6.4%, 01/2024: 6.3%, 03/2024: 6.1%, 07/2024: 6.2% Thyroid Function Testin10/2013: TSH 2.29 (0.358-3.740), free T4 1.02 (0.76-1.46), 12/2015: TSH 1.970 (0.358-3.740 uIU/mL), free T4 1.15 (0.76-1.46 ng/dL), 01/2018: TSH 1.735 (0.35-5.5), 12/2018: TSH 1.137 (0.35-5.5), 05/2019: TSH 2.293 (0.35-5.5), 01/2020: TSH 1.754 (0.35-5.5), free T4 1.2 (0.9-1.5), 01/2021: TSH 1.9 (0.27-4.2 uIU/mL), free T4 1.2 (0.9-1.7), 12/2021: TSH 3.41 (0.27-4.2 uIU/mL), free T4 1.1 (0.9-1.7), 07/2023: TSH 2.35 (0.27-4.2 uIU/mL), Renal Function Testin08/2013: creatinine 0.7, 12/2015: creatinine 0.69 mg/dL, eGFR >60,), 05/2018: Creatinine 0.72, 01/2019: Creatinine 0.86, 07/2019: Creatinine 0.73, 07/2020: Creatinine 0.65, 10/2020: Creatinine 0.64, 01/2021: Creatinine 0.81, 03/2021: Creatinine 0.73, 12/2021: Creatinine 0.64, 12/2022: Creatinine 0.78, 03/2023: Creatinine 0.83, 08/2023: Creatinine 1.13 eGFR 90, 10/2023: Creatinine 1.04, 03/2024: Creatinine 1.37 eGFR 71, 03/2024: Creatinine 1.02 Urine for Microalbumin:10/2013: Microalbumin:Creatinine ratio ok,12/2015: microalbumin : creatinine ratio ok, 08/2017: Microalbumin:Creatinine Ratio ok, 10/2018: Microalbumin:Creatinine Ratio 535, 01/03/2020: Microalbumin:Creatinine Ratio 650, 01/2021: Microalbumin:Creatinine Ratio 361. Improved but above goal. Jay states he has used lisinopril in the past but this increased his potassium too much and it was discontinued. He will inquire further with his CF providers about losartan. I advised him to make an appointment with nephrology as we had previously discussed., 03/19/2021: Microalbumin:Creatinine Ratio 1220, 08/2021: still hasn't made appointment with kidney specialist, stressed the importance of this to prevent further kidney damage., 10/2022: prot/creat ratio in epic, making appointment with nephrology, 07/2023: prot/creat ratio in epic Lipid Profile:10/2013: TC 111, HDL 42, LDL 56, TG 56, 12/2015: TC 122, HDL 52, LDL 60, TG 49, 10/2018: TC 160, HDL 72, LDL 71, TG 83, 01/03/2020: TC 253 HDL 133 LDL 112 TG 38, 01/2021: TC 179 HDL 115 LDL 54 TG 51, 03/2021: TC 233 HDL 143 LDL 84 TG 32, 03/2024; TC 147 HDL 72 LDL 64 TG 54 Liver Profile:08/2013: AST 93, ALT 65, Alkaline Phosphatase 811, 12/2015: AST 110 (9-37 U/L), ALT 164 (12-78 U/L), alkaline phosphatase 807 (46-116 U/L), Bilirubin, total 1.3 (0.2-1.0, mg/dL, 05/2018: results in care everywhere, 12/2019: results in care everywhere, 01/2020: labs in [facility], 07/2020; Alkaline Phosphatase 725 (45-117), ALT 77 (16-61), AST 163 (15-37), 12/2020: results in care everywhere., 03/2021: results In care everywhere, 12/2021: Alkaline Phosphatase 918 (38-113), bone percent 13.9%, liver percent 86.1 , 12/2022: liver function monitored by CF providers, 03/2023: in [facility], 08/2023: LFTS in [facility], 10/2023: LFTS in [facility], 03/2024: liver test in [facility] Dilated Eye Exam: Patient educated to have ophthalmology visits at least once a year. 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 08/2013: New patient visit for Cystic Fibrosis related Diabetes Previous diabetes related labs from [facility] reviewed prior to today's office visit. Any changes made at our last diabetes management visit were abstracted accordingly (if applicable). Today's Office Visit: Jaydon Dennis: reminded patient to make appointment with for osteoporosis again 03/2024 Nephrology: following Hepatology: following. Hematology: had appointment per patient. Lipids: advised to discuss with CF providers, may not be able to treat with high liver enzymes. Endocrinology: we manage patients CFRD only. BP: above goal today. Advised to monitor at home and report to CF providers if above goal. self monitoring blood glucose data : see dexcom report. Average 14 day SG 164 predicted gmi 7.2%, 63% TIR 3% low range. Improving. Occasional late evening elevations. Occasional missed dosages per patient. Diet: can be high in carbs per patient due to CF diet to gain weight per patient.. Exercise: as tolerated History of hypoglycemia unawareness,-using dexcom now. Likes the g7 Insulin pump: not interested at this time until its approved with g7. Glucagon kit: has baqsimi. Your new insulin regimen: Long acting insulin: Insulin used for this is called: Basaglar or lantus Bedtime dose 11 units-->8 units was having lows Rapid acting /mealtime insulin: Insulin used for this is called: Humalog or Novolog insulin unit:grams of carb ratio Meal time dosin:20 Your sliding scale, for additional units of the rapid acting insulin: Insulin used for this is called: Humalog or Novolog Take this at meals, in addition to the above doses. 1:50/250 Typical Day: varies Always check blood sugar prior to driving. Carry glucose tablets when travelling. I reviewed and updated the below Review of Systems for today's office visit. Review of Systems Constitutional: Negative for weight loss. HENT: Negative for ear pain. Eyes: Negative for pain. Respiratory: Negative for shortness of breath. Cardiovascular: Negative for chest pain. Gastrointestinal: Negative for abdominal pain, blood in stool and melena. Genitourinary: Negative for hematuria. Musculoskeletal: Negative for falls. Neurological: Negative for loss of consciousness. PAST MEDICAL HISTORY No date: Asthma No date: BMI less than 19,adult No date: Cystic fibrosis No date: 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) No date: History of transfusion No date: Hypertension No date: Liver disease No date: care home (current) use of insulin (HCC) No date: Transfusion history No date: Type 1 diabetes mellitus with hyperglycemia (HCC) PAST SURGICAL HISTORY No date: PAST SURGICAL HISTORY OF Comment: splenal renal shunt to treat portal hypertension 03/08/2023: PICC LINE INSERT/CONSULT 02/03/2024: PICC LINE INSERT/CONSULT FAMILY HISTORY Problem Relation Age of Onset Hypertension Mother Breast Cancer Other other (hypercholesterolemia) Other other (heart disease in female family member before age 65) Other Social History Tobacco Use Smoking status: Never Smokeless tobacco: Never Vaping Use Vaping Use: Never used Substance Use Topics Alcohol use: No Drug use: No Current Meds fluticasone-salmeterol (ADVAIR DISKUS) 500-50 mcg/dose dsdv Inhale 1 Puff as instructed two times a day. ursodiol (ACTIGALL) 300 mg capsule Take 1 capsule by mouth two times a day. carvedilol (COREG) 25 mg tablet Take 1 tablet by mouth two times a day with meals. insulin glargine (LANTUS SOLOSTAR U-100 INSULIN) 100 unit/mL (3 mL) inject 11 units subcutaneously at bedtime Lancets Use as instructed 3x/day blood sugar diagnostic (BLOOD GLUCOSE TEST) test strip 3x/day insulin lispro (HUMALOG KWIKPEN INSULIN) 100 unit/mL Dose varies units with meals and sliding scale, using about 30 total units a day Blood-Glucose Sensor (DEXCOM G7 SENSOR) jean-paul use as directed and REPLACE every 10 days Insulin Calvin, Disposable, (BD YARON 2ND GEN PEN NEEDLE) 32 gauge x 5/32 5x/day cholecalciferol, Vitamin D3, (VITAMIN D3) 1,250 mcg (50,000 unit) cap capsule Take 1 capsule by mouth two times a week. tranexamic acid (LYSTEDA) 650 mg tablet Take 2 tablets by mouth three times a day for 5 days. CREON 36,000-114,000- 180,000 unit delayed release capsule Take 3 capsules by mouth three times a day with meals. 3 with snacks dornase christi (PULMOZYME) 1 mg/mL nebulizer solution Inhale 2.5 mL as instructed once daily. elexacaftor 100 mg-tezacaftor 50 mg-ivacaftor 75 mg(d)/ivacaftor 150 mg(n) tablets (TRIKAFTA) Alternate between 2(starting 07/30) and 1 tablet every morning , hold evening dose ipratropium-albuterol (DUONEB) 0.5 mg-3 mg(2.5 mg base)/3 mL nebu Inhale 3 mL as instructed every 4 hours as needed for wheezing/shortness of breath. Blood-Glucose Meter monitoring kit For monitoring sugars 3x/day albuterol HFA (VENTOLIN HFA) 90 mcg/actuation inhaler inhale 2 puffs by mouth as directed every 4 hours if needed for wheezing or shortness of breath Blood-Glucose Meter,Continuous (DEXCOM G7 CODER OPERATOR) misc For monitoring sugars glucagon (BAQSIMI) 3 mg/actuation nasal spray Use 1 Calvin in the nose as needed. May repeat after 15 minutes using a new device if there is no response for severe low blood sugar event aztreonam lysine (CAYSTON) 75 mg/mL nebulizer solution Inhale 1 mL as instructed three times daily. 28 days on 28 days off Send altera nebulizer with each shipment Nebulizers 1 Each three times daily. cetirizine (ZYRTEC) 5 mg tablet Take 10 mg by mouth once daily. montelukast (SINGULAIR) 10 mg tablet Take 1 tablet by mouth daily at bedtime. Nebulizers 1 Each three times daily. VITAMIN D2 1,250 mcg (50,000 unit) capsule Take 1 capsule by mouth two times a week. Objective BP 156/92 Ht 157.5 cm (5' 2 ) Wt 42.4 kg (93 lb 8 oz) BMI 17.10 kg/m Physical Exam Constitutional: General: He is not in acute distress. Appearance: He is not toxic-appearing. HENT: Head: Normocephalic and atraumatic. Eyes: General: No scleral icterus. Conjunctiva/sclera: Conjunctivae normal. Cardiovascular: Rate and Rhythm: Normal rate and regular rhythm. Pulmonary: Effort: Pulmonary effort is normal. No respiratory distress. Breath sounds: No wheezing. Skin: General: Skin is warm. Neurological: Mental Status: He is alert. Psychiatric: Mood and Affect: Mood and affect normal. Mood is not anxious. Judgment: Judgment normal. ASSESSMENT/PLAN: 1. Type 1 diabetes mellitus with hyperglycemia (HCC) - ICD9: 250.01, ICD10: E10.65 - HEMOGLOBIN A1C (POC) - GLUCOSE MONITOR, 72 HOUR, PHYS INTERP Plan of Care: 1. HbA1C 6.2% 2. Can continue current diabetes medications and dosages for now. 3. Total time for today's office visit was greater than 30 minutes. Greater than 50% of the time was spent in counseling and/or coordination of care. 4. Self monitoring blood glucose log sheet(s) were given to the patient. Instructed to fill out sheets and bring log to next visit. 5. Answered all questions. 6. Patient verbalized understanding of all the above instructions. 7. Discussed therapeutic lifestyle changes. Stephie Ramirez APRN.ACQUISITION ANALYST documented in this encounter [facility] 07-05-2024 Note HNO ID: [id number] Author: STEPHIE RAMIREZ APRN.ARIAS Service: ? Author Type: Nurse Practitioner Type: Progress Notes Filed: 07/05/2024 11:25 Note Text: Subjective Important Lab History: HBA1C:10/2013: 10.8%, 12/2013: 7.4%, 03/2014: 9.6%, 03/2014: 8.1%, 05/2014: 6.7%, 05/2015: 6.9%, 08/2015: 8.4%, 12/2015: HbA1c 8.3%, 03/2016: 8.9%, 05/2016: 7.0%, 01/2018: 9.6%, 05/2018: 10.3%, 08/2018: 8.2%, 10/2018: 7.9%, 01/2019: 8.1%, 03/2019: 6.6%, 07/2019: 6.5%, 12/2019: 6.9%, 07/2020: 6.6%, 08/2020: 6.4%, 01/2021: HbA1C 8.3%, 03/2021: 8.3%, 05/2021: 7.4%, 08/2021: 7.4%, 12/2021: 7.5%, 07/2022: 8.6%, 10/2022: 8.4%, 03/2023: 7.7%, 07/2023: 6.9%, 10/2023: 6.4%, 01/2024: 6.3%, 03/2024: 6.1%, Thyroid Function Testin10/2013: TSH 2.29 (0.358-3.740), free T4 1.02 (0.76-1.46), 12/2015: TSH 1.970 (0.358-3.740 uIU/mL), free T4 1.15 (0.76-1.46 ng/dL), 01/2018: TSH 1.735 (0.35-5.5), 12/2018: TSH 1.137 (0.35-5.5), 05/2019: TSH 2.293 (0.35-5.5), 01/2020: TSH 1.754 (0.35-5.5), free T4 1.2 (0.9-1.5), 01/2021: TSH 1.9 (0.27-4.2 uIU/mL), free T4 1.2 (0.9-1.7), 12/2021: TSH 3.41 (0.27-4.2 uIU/mL), free T4 1.1 (0.9-1.7), 07/2023: TSH 2.35 (0.27-4.2 uIU/mL), Renal Function Testin08/2013: creatinine 0.7, 12/2015: creatinine 0.69 mg/dL, eGFR >60,), 05/2018: Creatinine 0.72, 01/2019: Creatinine 0.86, 07/2019: Creatinine 0.73, 07/2020: Creatinine 0.65, 10/2020: Creatinine 0.64, 01/2021: Creatinine 0.81, 03/2021: Creatinine 0.73, 12/2021: Creatinine 0.64, 12/2022: Creatinine 0.78, 03/2023: Creatinine 0.83, 08/2023: Creatinine 1.13 eGFR 90, 10/2023: Creatinine 1.04, 03/2024: Creatinine 1.37 eGFR 71, 03/2024: Creatinine 1.02 Urine for Microalbumin:10/2013: Microalbumin:Creatinine ratio ok,12/2015: microalbumin : creatinine ratio ok, 08/2017: Microalbumin:Creatinine Ratio ok, 10/2018: Microalbumin:Creatinine Ratio 535, 01/03/2020: Microalbumin:Creatinine Ratio 650, 01/2021: Microalbumin:Creatinine Ratio 361. Improved but above goal. Jay states he has used lisinopril in the past but this increased his potassium too much and it was discontinued. He will inquire further with his CF providers about losartan. I advised him to make an appointment with nephrology as we had previously discussed., 03/19/2021: Microalbumin:Creatinine Ratio 1220, 08/2021: still hasn't made appointment with kidney specialist, stressed the importance of this to prevent further kidney damage., 10/2022: prot/creat ratio in [facility], making appointment with nephrology, 07/2023: prot/creat ratio in [facility] Lipid Profile:10/2013: TC 111, HDL 42, LDL 56, TG 56, 12/2015: TC 122, HDL 52, LDL 60, TG 49, 10/2018: TC 160, HDL 72, LDL 71, TG 83, 01/03/2020: TC 253 HDL 133 LDL 112 TG 38, 01/2021: TC 179 HDL 115 LDL 54 TG 51, 03/2021: TC 233 HDL 143 LDL 84 TG 32, 03/2024; TC 147 HDL 72 LDL 64 TG 54 Liver Profile:08/2013: AST 93, ALT 65, Alkaline Phosphatase 811, 12/2015: AST 110 (9-37 U/L), ALT 164 (12-78 U/L), alkaline phosphatase 807 (46-116 U/L), Bilirubin, total 1.3 (0.2-1.0, mg/dL, 05/2018: results in care everywhere, 12/2019: results in care everywhere, 01/2020: labs in [facility], 07/2020; Alkaline Phosphatase 725 (45-117), ALT 77 (16-61), AST 163 (15-37), 12/2020: results in care everywhere., 03/2021: results In [facility] everywhere, 12/2021: Alkaline Phosphatase 918 (38-113), bone percent 13.9%, liver percent 86.1 , 12/2022: liver function monitored by CF providers, 03/2023: in [facility], 08/2023: LFTS in [facility], 10/2023: LFTS in [facility], 03/2024: liver test in [facility] Dilated Eye Exam: Patient educated to have ophthalmology visits at least once a year. 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 08/2013: New patient visit for Cystic Fibrosis related Diabetes [facility] prior to today's office visit. Any changes made at our last diabetes management visit were abstracted accordingly (if applicable). Today's Office Visit: Jaydon Dennis: reminded patient to make appointment with for osteoporosis again 03/2024 Nephrology: following Hepatology: following. Hematology: had appointment per patient. Lipids: advised to discuss with CF providers, may not be able to treat with high liver enzymes. Endocrinology: we manage patients CFRD only. self monitoring blood glucose data : see dexcom report. Average 14 day SG 205 predicted gmi n/a%, 44% TIR 2% low range. Reviewed to calibrate more often, review how/when to calibrate and to use physical BG for treatment decisions if ever doubting sensor accuracy. Recently dc'd from hospital, diet has been returning. Diet: can be high in carbs per patient due to CF diet to gain weight per patient.. Exercise: as tolerated History of hypoglycemia unawareness,-using dexcom now. Likes the g7 Insulin pump: not interested at this time until its approved with g7. Glucagon kit: has baqsimi. Your new insulin regimen: Long acting insulin: Insulin used for t (more content not included)... [facility] 07-05-2024 History of Presen t illness Narrative Subjective Important Lab History: HBA1C:10/2013: 10.8%, 12/2013: 7.4%, 03/2014: 9.6%, 03/2014: 8.1%, 05/2014: 6.7%, 05/2015: 6.9%, 08/2015: 8.4%, 12/2015: HbA1c 8.3%, 03/2016: 8.9%, 05/2016: 7.0%, 01/2018: 9.6%, 05/2018: 10.3%, 08/2018: 8.2%, 10/2018: 7.9%, 01/2019: 8.1%, 03/2019: 6.6%, 07/2019: 6.5%, 12/2019: 6.9%, 07/2020: 6.6%, 08/2020: 6.4%, 01/2021: HbA1C 8.3%, 03/2021: 8.3%, 05/2021: 7.4%, 08/2021: 7.4%, 12/2021: 7.5%, 07/2022: 8.6%, 10/2022: 8.4%, 03/2023: 7.7%, 07/2023: 6.9%, 10/2023: 6.4%, 01/2024: 6.3%, 03/2024: 6.1%, Thyroid Function Testin10/2013: TSH 2.29 (0.358-3.740), free T4 1.02 (0.76-1.46), 12/2015: TSH 1.970 (0.358-3.740 uIU/mL), free T4 1.15 (0.76-1.46 ng/dL), 01/2018: TSH 1.735 (0.35-5.5), 12/2018: TSH 1.137 (0.35-5.5), 05/2019: TSH 2.293 (0.35-5.5), 01/2020: TSH 1.754 (0.35-5.5), free T4 1.2 (0.9-1.5), 01/2021: TSH 1.9 (0.27-4.2 uIU/mL), free T4 1.2 (0.9-1.7), 12/2021: TSH 3.41 (0.27-4.2 uIU/mL), free T4 1.1 (0.9-1.7), 07/2023: TSH 2.35 (0.27-4.2 uIU/mL), Renal Function Testin08/2013: creatinine 0.7, 12/2015: creatinine 0.69 mg/dL, eGFR >60,), 05/2018: Creatinine 0.72, 01/2019: Creatinine 0.86, 07/2019: Creatinine 0.73, 07/2020: Creatinine 0.65, 10/2020: Creatinine 0.64, 01/2021: Creatinine 0.81, 03/2021: Creatinine 0.73, 12/2021: Creatinine 0.64, 12/2022: Creatinine 0.78, 03/2023: Creatinine 0.83, 08/2023: Creatinine 1.13 eGFR 90, 10/2023: Creatinine 1.04, 03/2024: Creatinine 1.37 eGFR 71, 03/2024: Creatinine 1.02 Urine for Microalbumin:10/2013: Microalbumin:Creatinine ratio ok,12/2015: microalbumin : creatinine ratio ok, 08/2017: Microalbumin:Creatinine Ratio ok, 10/2018: Microalbumin:Creatinine Ratio 535, 01/03/2020: Microalbumin:Creatinine Ratio 650, 01/2021: Microalbumin:Creatinine Ratio 361. Improved but above goal. Jay states he has used lisinopril in the past but this increased his potassium too much and it was discontinued. He will inquire further with his CF providers about losartan. I advised him to make an appointment with nephrology as we had previously discussed., 03/19/2021: Microalbumin:Creatinine Ratio 1220, 08/2021: still hasn't made appointment with kidney specialist, stressed the importance of this to prevent further kidney damage., 10/2022: prot/creat ratio in [facility], making appointment with nephrology, 07/2023: prot/creat ratio in [facility] Lipid Profile:10/2013: TC 111, HDL 42, LDL 56, TG 56, 12/2015: TC 122, HDL 52, LDL 60, TG 49, 10/2018: TC 160, HDL 72, LDL 71, TG 83, 01/03/2020: TC 253 HDL 133 LDL 112 TG 38, 01/2021: TC 179 HDL 115 LDL 54 TG 51, 03/2021: TC 233 HDL 143 LDL 84 TG 32, 03/2024; TC 147 HDL 72 LDL 64 TG 54 Liver Profile:08/2013: AST 93, ALT 65, Alkaline Phosphatase 811, 12/2015: AST 110 (9-37 U/L), ALT 164 (12-78 U/L), alkaline phosphatase 807 (46-116 U/L), Bilirubin, total 1.3 (0.2-1.0, mg/dL, 05/2018: results in care everywhere, 12/2019: results in care everywhere, 01/2020: labs in [facility], 07/2020; Alkaline Phosphatase 725 (45-117), ALT 77 (16-61), AST 163 (15-37), 12/2020: results in care everywhere., 03/2021: results In care everywhere, 12/2021: Alkaline Phosphatase 918 (38-113), bone percent 13.9%, liver percent 86.1 , 12/2022: liver function monitored by CF providers, 03/2023: in epic, 08/2023: LFTS in [facility], 10/2023: LFTS in [facility], 03/2024: liver test in [facility] Dilated Eye Exam: Patient educated to have ophthalmology visits at least once a year. 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 08/2013: New patient visit for Cystic Fibrosis related Diabetes Previous diabetes related labs from [facility] and [facility]-everywhere systems reviewed prior to today's office visit. Any changes made at our last diabetes management visit were abstracted accordingly (if applicable). Today's Office Visit: Jaydon Dennis: reminded patient to make appointment with for osteoporosis again 03/2024 Nephrology: following Hepatology: following. Hematology: had appointment per patient. Lipids: advised to discuss with CF providers, may not be able to treat with high liver enzymes. Endocrinology: we manage patients CFRD only. self monitoring blood glucose data : see dexcom report. Average 14 day SG 205 predicted gmi n/a%, 44% TIR 2% low range. Reviewed to calibrate more often, review how/when to calibrate and to use physical BG for treatment decisions if ever doubting sensor accuracy. Recently dc'd from hospital, diet has been returning. Diet: can be high in carbs per patient due to CF diet to gain weight per patient.. Exercise: as tolerated History of hypoglycemia unawareness,-using dexcom now. Likes the g7 Insulin pump: not interested at this time until its approved with g7. Glucagon kit: has baqsimi. Your new insulin regimen: Long acting insulin: Insulin used for this is called: Basaglar or lantus Bedtime dose 11 units Rapid acting /mealtime insulin: Insulin used for this is called: Humalog or Novolog insulin unit:grams of carb ratio Meal time dosin:20 Your sliding scale, for additional units of the rapid acting insulin: Insulin used for this is called: Humalog or Novolog Take this at meals, in addition to the above doses. 1:50/250 Typical Day: varies Always check blood sugar prior to driving. Carry glucose tablets when travelling. I reviewed and updated the below Review of Systems for today's office visit. 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) No date: Transfusion history No date: Type 1 diabetes mellitus with hyperglycemia (HCC) PAST SURGICAL HISTORY No date: PAST SURGICAL HISTORY OF Comment: splenal renal shunt to treat portal hypertension 03/08/2023: PICC LINE INSERT/CONSULT 02/03/2024: PICC LINE INSERT/CONSULT FAMILY HISTORY Problem Relation Age of Onset Hypertension Mother Breast Cancer Other other (hypercholesterolemia) Other other (heart disease in female family member before age 65) Other Social History Tobacco Use Smoking status: Never Smokeless tobacco: Never Vaping Use Vaping Use: Never used Substance Use Topics Alcohol use: No Drug use: No Current Meds fluticasone-salmeterol (ADVAIR DISKUS) 500-50 mcg/dose dsdv Inhale 1 Puff as instructed two times a day. ursodiol (ACTIGALL) 300 mg capsule Take 1 capsule by mouth two times a day. bumetanide (BUMEX) 1 mg tablet Take 1 tablet by mouth once daily. carvedilol (COREG) 25 mg tablet Take 1 tablet by mouth two times a day with meals. insulin glargine (LANTUS SOLOSTAR U-100 INSULIN) 100 unit/mL (3 mL) inject 11 units subcutaneously at bedtime Lancets Use as instructed 3x/day blood sugar diagnostic (BLOOD GLUCOSE TEST) test strip 3x/day insulin lispro (HUMALOG KWIKPEN INSULIN) 100 unit/mL Dose varies units with meals and sliding scale, using about 30 total units a day Blood-Glucose Sensor (DEXCOM G7 SENSOR) jean-paul use as directed and REPLACE every 10 days polyethylene glycol 3350 17 gram packet Take 1 Packet by mouth once daily as needed. Dissolve dose in 4 - 8 ounces of liquid and take as directed. pantoprazole DR (PROTONIX) 40 mg tablet Take 1 tablet by mouth two times a day before meals at 6 am and 4 pm. Insulin Calvin, Disposable, (BD YARON 2ND GEN PEN NEEDLE) 32 gauge x 5/32 5x/day zinc sulfate 220 mg capsule Take 1 capsule by mouth once daily for 2 weeks and 2 capsules per week thereafter vitamin A (AQUASOL A) 10,000 unit capsule Take 1 capsule by mouth once daily. cholecalciferol, Vitamin D3, (VITAMIN D3) 1,250 mcg (50,000 unit) cap capsule Take 1 capsule by mouth two times a week. PRESERVISION AREDS-2 250-90-40-1 mg tranexamic acid (LYSTEDA) 650 mg tablet Take 2 tablets by mouth three times a day for 5 days. CREON 36,000-114,000- 180,000 unit delayed release capsule Take 3 capsules by mouth three times a day with meals. 3 with snacks dornase christi (PULMOZYME) 1 mg/mL nebulizer solution Inhale 2.5 mL as instructed once daily. elexacaftor 100 mg-tezacaftor 50 mg-ivacaftor 75 mg(d)/ivacaftor 150 mg(n) tablets (TRIKAFTA) Alternate between 2(starting 07/30) and 1 tablet every morning , hold evening dose ipratropium-albuterol (DUONEB) 0.5 mg-3 mg(2.5 mg base)/3 mL nebu Inhale 3 mL as instructed every 4 hours as needed for wheezing/shortness of breath. Vit A,C,Z-Xuco-Aivspp (PRESERVISION AREDS) 4,296 mcg-226 mg-90 mg cap Take 1 capsule by mouth twice daily. Take with food. Blood-Glucose Meter monitoring kit For monitoring sugars 3x/day albuterol HFA (VENTOLIN HFA) 90 mcg/actuation inhaler inhale 2 puffs by mouth as directed every 4 hours if needed for wheezing or shortness of breath VITAMIN D2 1,250 mcg (50,000 unit) capsule Take 1 capsule by mouth two times a week. Blood-Glucose Meter,Continuous (DEXCOM G7 CODER OPERATOR) [facility] For monitoring sugars glucagon (BAQSIMI) 3 mg/actuation nasal spray Use 1 Calvin in the nose as needed. May repeat after 15 minutes using a new device if there is no response for severe low blood sugar event aztreonam lysine (CAYSTON) 75 mg/mL nebulizer solution Inhale 1 mL as instructed three times daily. 28 days on 28 days off Send altera nebulizer with each shipment Nebulizers 1 Each three times daily. cetirizine (ZYRTEC) 5 mg tablet Take 10 mg by mouth once daily. montelukast (SINGULAIR) 10 mg tablet Take 1 tablet by mouth daily at bedtime. Nebulizers 1 Each three times daily. Objective There were no vitals taken for this visit. Physical Exam documented in this encounter [facility] 05-10-2024 Note [facility] 05-07-2024 History of Presen t illness Narrative Radiology Service Progress Note DATE OF SERVICE: May 07, 2024 TIME: 1:46 PM PATIENT IDENTITY VERIFICATION COMPLETED USING TWO (2) STANDARD IDENTIFIERS: Name and Date of confirmed by patient verbally. FALL SCREENING: Has the patient had 2 falls in the last year or 1 fall with injury or currently using an Ambulatory Assistive Device (Walker, Cane, Wheelchair, Crutches, etc.)? No PATIENT GENDER DATA: Male PATIENT RELEVANT IMPLANT DATA REVIEWED: Yes PATIENT PRESENTS WITH AN IMPLANTABLE OR ATTACHED FORMULATION TECHNICIAN: Yes Dexcom ALLERGIES: Reviewed and unchanged CONTRAST ALLERGY: NO. EXAM: MRI - CONTRAST TYPE: GROUP II PERIPHERAL IV DATA: Ambulatory: A peripheral IV was started in the Left antecubital site with a Angio cath: 22 gauge. RADIOLOGY DEPARTMENT: MR; Exam(s) Completed: Body: Pancreas/Biliary SIGNATURE: RT Art(R) PATIENT NAME: Jay Barber DATE: May 07, 2024 TIME: 1:46 PM documented in this encounter [facility] 05-07-2024 Note [facility] 05-05-2024 Instructions Zaida Santos RN - 05/05/2024 5:01 PM EDT BONE MINERAL DENSITY PATIENT INSTRUCTIONS ========= Bone mineral density testing measures the amount of calcium in certain parts of your bones. This information determines how strong your bones are. The test is used to detect osteoporosis, a disease in which the bone's mineral content and density are low, increasing a person's risk of fractures. The lumbar spine (lower back) and the hip are the skeletal sites usually examined. For the test, remember that: 1. You cannot take this test if you are . 2. Eat a normal diet on the day of the test. 3. Take your medications as you normally would. 4. DO NOT take calcium supplements (such as Tums) for 24 hours before the test. 5. On the day of the test, leave valuables (jewelry or credit cards) at home. 6. The test should be performed prior to oral, rectal or IV contrast studies, or at least 7 days after any of these studies. For the test, you may be asked to wear a hospital gown. You will lie on your back, on a padded table, in a comfortable position. Generally, you can resume your usual activities immediately. documented in this encounter [facility] 05-05-2024 Note [facility] 05-05-2024 History of Presen t illness Narrative Patient identified by name and date of . The following topics were discussed as part of today's visit: THERAPY AND ORDER OF THERAPY 1. INHALED MEDICATIONS: Bronchodilator: Duoneb 1 vial 2-3 times/day - also has albuterol MDI rarely used when away from home. Hypertonic Saline: NA Pulmozyme: 1 times/day Antibiotic: Mukesh:n/a Podhaler: n/a Colistin: n/a Other: Cayston - 2 - 3 times 2-3 times per day Inhaled Steroid: Name: Advair 2 puffs 2 times/day Other: Flovent - Only used with chest tightness 2. AIRWAY CLEARANCE THERAPY: May done while receiving the nebulizer Vest: n/a PD&C: n/a Flutter/Acapella: Only used if congested Other: 3. ORDER OF INHALED MEDICATIONS AND AIRWAY CLEARANCE (You should do this twice daily): 1. Bronchodilator 2. Hypertonic saline 3. VEST Treatment (you can do hypertonic saline while wearing the Vest) 4. Pulmozyme 5. Inhaled Antibiotic 6. Inhaled corticosteroid 4. OTHER PULMONARY/RESPIRATORY MEDICATIONS: Trikafta 5. EQUIPMENT MAINTENANCE AND CLEANING: Patient reports Microwave 15 minutes - reviewed [employer] recommendations for cleaning Bob nebulizers. States he has extras given to him from past admissions. He rotates use. I reiterated the need for cleaning these prior to use. Explained Bob nebs should be replaced every 6 months. Reviewed recommended equipment cleaning. Heat options include Boil x 5 minutes Microwave x 5 minutes General Accountant 158 degrees x 30 minutes Electric steam sterilizer(baby bottle sterilizer) Cold options include Soak in 70% isopropyl alcohol x 5 minutes Soak in 3% hydrogen peroxide x 30 minutes Reviewed replacement recommendations. Nebulizer every 6 months*. Inhaler spacer every 12 months*. Nebulizer filters per forder operator guidelines*. *More often as needed. 6. EXERCISE/STRETCHING: Patient reports No specific exercise program. He plays with his dog for about 20 minutes on most days. Recommended exercise at least 30 minutes, 3-5 times a week. Goal is 150 minutes per week. 7. EDUCATION/OTHER: comfort Kraus YARD COORDINATOR documented in this encounter [facility] 05-05-2024 Note [facility] 05-05-2024 History of Presen t illness Narrative Images from the original note were not included. PULMONARY MEDICINE CYSTIC FIBROSIS FOLLOW UP May 05, 2024 Patient Name: Jay Barber PRIMARY CARE PHYSICIAN: No primary care provider on file. 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, Trichosporonosis, Aspergillus ---Pancreatic insufficiency - on enzymes with Creon ---CFRD - follows with endocrinology ---CF Liver disease - complicated by portal hypertension, esophageal varices ---Chronic sinusitis ---Anxiety/Depression A CF Pulmonary Exacerbation is ABSENT We discussed the following today: CF lung disease ---stable but severe, best FEV1 (30%) since August 2023 ---your weight is up 6 lbs, but in the absence of edema I think this is good weight gain as you rebuild from the admission this spring CFLD ---their plans depend on the results of the MRCP ---Has Hepatology visit scheduled with Dr. Lindo on 07/16/24 CFRD ---your A1C this last visit is your best in a long time - nice work ---Has Endocrinology visit scheduled with Stephie Ramirez CNP on 07/06/24 - needs f/u from his latest DEXA results on 09/22/23 -> lowest T-score -3.1 in L femoral neck Follow up visit in 3 months HISTORY OF PRESENT ILLNESS: Jay Barber is a 28 year old male, here for follow-up of Cystic Fibrosis. Has been stable since last visit following a hospitalization this spring. HERNÁNDEZ significant, but is improving slowly. Courses of oral abx since last visit:0 Courses of IV abx since last visit:0 Prednisone use since last visit: 0 ED visits since last visit: 0 Hospitalizations since last visit: 0 Ovalis/Phone Messages since last visit: none 1. CYSTIC FIBROSIS PULMONARY DISEASE AND BRONCHIECTASIS Pulmonary symptoms near recent baseline, with minimal congestion and cough. Marked fatigue. FEV1% predicted today: 30% (0.92L): was 27% (0.85L) 02/25/24;; 27% (0.87L) 02/12/24; 29% (0.92L) 11/12/23; was 33% (1.03L ) 09/24/23; 1.15L 07/02/23 (but all better than baseline over the previous year) Complicated by chronic respiratory tract infection with PsA, Burkholderia vietnamiensis (sent to [facility] in 2019), MRSA Chronic maintenance regimen: CFTR modulators: Trikafta - on adjusted dosing due to Cirrhosis - reports taking 2 orange pills on even days of the month and 1 orange pill on odd days of the month, No blue pills Pulmozyme: once daily Hypertonic saline: has at home but not currently using Chronic Azithromycin (anti-inflammatory): No (on hold due to prior NTM) Inhaled Abx: Cayston Ibuprofen: No Nebulized short-acting bronchodilator: albuterol as needed Nebulized other: PEP device: has acapella VEST: not currently using unless ill ICS: Advair 500/50mg 2 puffs BID Oral prednisone: as needed, not currently on Pulm rehab: not currently using Supplemental oxygen use: no Exercise and minutes per week: brisk walking/ lifting, 2 hrs per week Recommended ORDER OF AIRWAY CLEARANCE: Albuterol, Hypertonic, VEST (with hypertonic), pulmozyme, Inhaled antibiotics, Inhaled corticosteroids Exacerbations in the last 12 months: -Hospital Admit: 02/03/24 - 02/16/24 for CF Exacerbation and Upper GIB -> treated with IV Meropenem, Minocycline and Vancomycin while inpatient -> discharged home on IV Meropenem and IV Vancomycin through 02/23/24 -Hospital Admit: 07/02/23-07/29/23 treated with Vancomycin through 07/06, Minocycline through 07/22, and Meropenum through 07/24 (not discharged home on any IV abx) -Hospital Admit: 03/07/23-03/11/23 -> discharged on Home IV abx Vanc and Larisa through 04/01/23 ADVANCED LUNG DISEASE (criteria: FEV1 < 40) and CHRONIC HYPOXEMIC RESPIRATORY FAILURE ---Supplemental oxygen: no ---BIPAP: no ---Pulmonary rehab: no ---ECHO: 07/04/23- EF 59%, RV size and function normal ---Weight: BMI of 15.5 - 87lbs ---Discussed lung transplantation: yes, while doubts he will do, he is willing to pursue eval Lung and liver discussed extensively with patient during July 2023 hospital admission - pt eventually deferred at hospital discharge ---Referred for lung transplantation: has agreed to start insurance verification, etc. But has declined eval so far CHRONIC RESPIRATORY TRACT PSEUDOMONAS AND BURKHOLDERIA ([place]iensis) ---Mucoid phenotype ---Inhaled antibiotic: previously used cayston montly alternating with MUKESH podhaler - not currently doing, but started Cayston in December 2022. Does have the altera device --> not doing it consistently ---Not on chronic azithromycin due to NTM ---Oral antibiotic that patient responds to: Cipro and Bactrim ---IV abx that patient responds to: IV TOBRAMYCIN, meropenem, vancomycin CYSTIC FIBROSIS PANCREATIC INSUFFICIENCY ---No generic enzymes, ever. ---Creon 36,000, 3-4 BEFORE meals AND 2-3 BEFORE snacks ---Fat soluble supplemental vitamins: Vitamin K 40 mcg daily ---CF Vitamins: MVI 2 daily ---Vitamin D2 50,000 weekly CYSTIC FIBROSIS LIVER DISEASE --- cirrhosis complicated by esophageal varices, portal hypertension --- Actigall restarted during last hospitalization - 300mg BID --- last RUQ US in 07/2023 --- last EGD 07/2023 --- hepatology follow-up scheduled for July Have referred for MRCP, with further plans pending results --- currently off diuretics CHRONIC PANSINUSITIS Sinuses can be a reservoir of bacterial infection and contribute to recurrent lower respiratory tract infections, especially in patients infected with Pseudomonas Symptoms are worse Nasal polyps - unknown? ---Antihistamine: zyrtec ---Nasal steroid: flonase ---Montelukast: added but discussed possible changes with mood ---If not improving with restart sinus medications - will obtain CT sinus and referral to ENT - would like to hold off on this for now given most likely related to change in weather ---Referral to ENT for surgical eval. Appt [phone]. Severe protein calorie malnutrition - continue ensures Prior Invasive Pulmonary Aspergillus infection/Trichosporonosis - treated with voriconazole by ID cosmetic consultant Dr. 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 Ahuja in nephrology ---acute kidney injury 2o recent illness, IV antibx -last BMP March/2024 with GFR>90, and creatinine back to 1.06 CYSTIC FIBROSIS RELATED DIABETES ---The standard medical therapy for CFRD is subcutaneous insulin ---Patient currently on insulin therapy ---Self monitored blood glucose 3 times per day ---Patient has a CGM: yes - screening and monitoring ---Most recent hgA1c noted. 6.3 02/03/24 ---Had ophthalmology retinal exam: needs to be done ---Urine albumin/creatinine ratio done: ordered ---Following with Dr. Francis Ramirez at [facility] ---DEXA with Vitamin D 25 Hydroxy (ng/mL) Date Value 02/27/2024 32.4 Hemoglobin A1C Date Value Ref Range Status 02/03/2024 6.3 (H) 4.3 - 5.6 % Final Comment: [place] [employer] guidelines indicate that patients with HgbA1c in the range 5.7-6.4% are at increased risk for development of diabetes, and intervention by lifestyle modification may be beneficial. HgbA1c greater or equal to 6.5% is considered diagnostic of diabetes. 07/03/2023 6.9 (H) 4.3 - 5.6 % Final Comment: [place] [employer] guidelines indicate that patients with HgbA1c in the range 5.7-6.4% are at increased risk for development of diabetes, and intervention by lifestyle modification may be beneficial. HgbA1c greater or equal to 6.5% is considered diagnostic of diabetes. 03/08/2023 7.7 (H) 4.3 - 5.6 % Final Comment: [place] [employer] guidelines indicate that patients with HgbA1c in the range 5.7-6.4% are at increased risk for development of diabetes, and intervention by lifestyle modification may be beneficial. HgbA1c greater or equal to 6.5% is considered diagnostic of diabetes. Hemoglobin A1C (POCT) Date Value Ref Range Status 03/09/2024 6.1 (A) 4.3 - 5.6 % Final Comment: Location:[facility], [facility] [address], [place], Critical access hospital Point of care (POC) Hemoglobin A1c (HGBA1C) testing is intended to assess glucose control and provide a management tool for patients known to have diabetes and their healthcare providers. Target HGBA1C levels may depend on specific clinical circumstances. POC HGBA1C is not intended for use as a diagnostic or screening test; laboratory-based testing should be used for diagnostic purposes. The following information is supplemental and may not be applicable to specific diabetes management situations: The POC device forder operator provides a normal range of 4.2% to 6.5% for the HGBA1C POC test. However, the [place] [employer] guidelines indicate that patients with HGBA1C in the range of 5.7% to 6.4% are at increased risk for development of diabetes and that intervention by lifestyle modification may be beneficial. A HGBA1C level greater than or equal to 6.5% is considered diagnostic of diabetes, pending confirmatory testing. Use of HGBA1C testing to evaluate glucose control may not be appropriate for patients with hemoglobin variants or other conditions (e.g. anemia) that alter red blood cell lifespan. 11/20/2023 6.4 4.2 - 5.6 % Final Comment: Location:[facility], [address], [place], [address] Point of care (POC) Hemoglobin A1c (HGBA1C) testing is intended to assess glucose control and provide a management tool for patients known to have diabetes and their healthcare providers. Target HGBA1C levels may depend on specific clinical circumstances. POC HGBA1C is not intended for use as a diagnostic or screening test; laboratory-based testing should be used for diagnostic purposes. The following information is supplemental and may not be applicable to specific diabetes management situations: The POC device forder operator provides a normal range of 4.2% to 6.5% for the HGBA1C POC test. However, the [place] [employer] guidelines indicate that patients with HGBA1C in the range of 5.7% to 6.4% are at increased risk for development of diabetes and that intervention by lifestyle modification may be beneficial. A HGBA1C level greater than or equal to 6.5% is considered diagnostic of diabetes, pending confirmatory testing. Use of HGBA1C testing to evaluate glucose control may not be appropriate for patients with hemoglobin variants or other conditions (e.g. anemia) that alter red blood cell lifespan. HAD COVID: Y/N yes VAPE: Y/N no ANNUAL SCREENING: ANNUAL LABS: 02/27/24 OGTT: NA - CFRD EYE EXAM TO CHECK FOR CATARACTS: DEXA: Completed on 09/24/23 -> Lowest T-score is 3.1 in left femoral neck (repeat in August 2024) T/Z = < -2.0 - every 1 year LIVER US/Fibroscan: had RU US in the hospital - cirrhotic liver - has hepatology follow-up (seen ) COLONOSCOPY: Start screening at age 40 years (re-screen every 5 years) in CF due to increased risk of GI carcinoma: INTERESTED IN RESEARCH: YES Was the patient screened for barriers to adherence using the Daily Care Check-In? NO RD ANNUAL VISIT Needed: 2023 - seen 05/05 RT ANNUAL VISIT Needed: NEEDS for 2023 SW ANNUAL VISIT Needed: 2023 - seen 05/05 SW Mental health screen: 2023 - seen 05/05 Referral to Endo: follows with Stephie Ramirez, ACQUISITION ANALYST - [facility] on 03/09/24 Referral to Transplant: Lung and liver discussed extensively with patient during July 2023 hospital admission - pt eventually deferred at hospital discharge Immunization History Administered Date(s) Administered COVID-19 original vaccine, age 12+ yr, monovalent ([employer] - PURPLE TOP) 12/24/2020 01/21/2021 12/05/2021 COVID-19 vaccine, age 12+ yr, bivalent ([employer]-BIOMyMiniLife) 12/04/2022 Haemophilus influenzae b (HbOC) vaccine, 4-dose series (HIBTITER) 1993 01/11/1994 05/20/1994 02/13/1995 Haemophilus influenzae b (Hib PRP-T) vaccine, 4-dose series (ACTHIB, HIBERIX) 07/16/1995 diphtheria tetanus pertussis (DTP) vaccine 1993 01/11/1994 05/20/1994 02/13/1995 07/16/1995 07/18/1999 hepatitis B (HepB) vaccine, 3-dose series, age 0 yr - 19 yr (ENGERIX B-PEDS, RECOMBIVAX HB-PEDS) 1993 1993 05/20/1994 influenza (IIV3) vaccine, trivalent (AFLURIA, FLULAVAL, FLUVIRIN, FLUZONE) 10/23/2011 09/13/2013 11/05/2018 influenza (IIV4) vaccine, age 6 mo - 64 yr, quadrivalent (AFLURIA, FLULAVAL, FLUZONE) 12/04/2022 influenza (IIV4) vaccine, age 6 mo - 64 yr, quadrivalent, PF (AFLURIA, FLUARIX, FLULAVAL, FLUZONE) 09/02/2016 10/11/2019 influenza (IIV4) vaccine, quadrivalent (AFLURIA, FLULAVAL, FLUZONE) 11/05/2018 influenza vaccine, whole virus 10/03/2010 measles mumps rubella (MMR) vaccine (M-M-R II, PRIORIX) 02/13/1995 06/13/1999 meningococcal (MenACWY-D) vaccine, quadrivalent (MENACTRA) 05/27/2012 meningococcal (MenACYW) vaccine, quadrivalent, unspecified formulation 05/27/2012 novel influenza (S4G2-23) vaccine, PF 10/19/2009 pneumococcal (PCV7) vaccine, 7 valent (PREVNAR 7) 01/08/2006 pneumococcal conjugate (PCV13) vaccine, 13 valent (PREVNAR 13) 05/26/2019 pneumococcal polysaccharide (PPV23) vaccine, 23 valent (PNEUMOVAX 23) 10/23/2011 07/28/2019 poliovirus (IPV) vaccine, inactivated (IPOL) 1993 01/11/1994 05/20/1994 02/13/1995 tetanus diphtheria pertussis (Tdap) vaccine, age 7+ yr (ADACEL, BOOSTRIX) 05/29/2012 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) Transfusion history Type 1 diabetes mellitus with hyperglycemia (HCC) PAST SURGICAL HISTORY Procedure Laterality Date PAST SURGICAL HISTORY OF splenal renal shunt to treat portal hypertension PICC LINE INSERT/CONSULT 03/08/2023 PICC LINE INSERT/CONSULT 02/03/2024 FAMILY HISTORY Problem Relation Age of Onset Hypertension Mother Breast Cancer Other other (hypercholesterolemia) Other other (heart disease in female family member before age 65) Other Social History Tobacco Use Smoking status: Never Smokeless tobacco: Never Vaping Use Vaping Use: Never used Substance Use Topics Alcohol use: No Drug use: No ALLERGIES: ALLERGIES Allergen Reactions Vancomycin Itching, Rash Gets Red Man syndrome and pt if not premedicated with benadryl prior to Vancomycin infusions. Cefoxitin Rash, Other: See Comments Severe abdominal pain, diarrhea, rash Severe Abdominal Pains Linezolid Rash, GI Upset CURRENT OUTPATIENT MEDICATIONS: fluticasone-salmeterol (ADVAIR DISKUS) 500-50 mcg/dose dsdv Inhale 1 Puff as instructed two times a day. ursodiol (ACTIGALL) 300 mg capsule Take 1 capsule by mouth two times a day. bumetanide (BUMEX) 1 mg tablet Take 1 tablet by mouth once daily. carvedilol (COREG) 25 mg tablet Take 1 tablet by mouth two times a day with meals. insulin glargine (LANTUS SOLOSTAR U-100 INSULIN) 100 unit/mL (3 mL) inject 11 units subcutaneously at bedtime Lancets Use as instructed 3x/day blood sugar diagnostic (BLOOD GLUCOSE TEST) test strip 3x/day insulin lispro (HUMALOG KWIKPEN INSULIN) 100 unit/mL Dose varies units with meals and sliding scale, using about 30 total units a day Blood-Glucose Sensor (Manyeta G7 SENSOR) jean-paul use as directed and REPLACE every 10 days polyethylene glycol 3350 17 gram packet Take 1 Packet by mouth once daily as needed. Dissolve dose in 4 - 8 ounces of liquid and take as directed. Insulin Calvin, Disposable, (BD YARON 2ND GEN PEN NEEDLE) 32 gauge x 5x/day zinc sulfate 220 mg capsule Take 1 capsule by mouth once daily for 2 weeks and 2 capsules per week thereafter vitamin A (AQUASOL A) 10,000 unit capsule Take 1 capsule by mouth once daily. cholecalciferol, Vitamin D3, (VITAMIN D3) 1,250 mcg (50,000 unit) cap capsule Take 1 capsule by mouth two times a week. PRESERVISION AREDS-2 250-90-40-1 mg CREON 36,000-114,000- 180,000 unit delayed release capsule Take 3 capsules by mouth three times a day with meals. 3 with snacks dornase christi (PULMOZYME) 1 mg/mL nebulizer solution Inhale 2.5 mL as instructed once daily. elexacaftor 100 mg-tezacaftor 50 mg-ivacaftor 75 mg(d)/ivacaftor 150 mg(n) tablets (TRIKAFTA) Alternate between 2(starting 07/30) and 1 tablet every morning , hold evening dose ipratropium-albuterol (DUONEB) 0.5 mg-3 mg(2.5 mg base)/3 mL nebu Inhale 3 mL as instructed every 4 hours as needed for wheezing/shortness of breath. Blood-Glucose Meter monitoring kit For monitoring sugars 3x/day albuterol HFA (VENTOLIN HFA) 90 mcg/actuation inhaler inhale 2 puffs by mouth as directed every 4 hours if needed for wheezing or shortness of breath VITAMIN D2 1,250 mcg (50,000 unit) capsule Take 1 capsule by mouth two times a week. Blood-Glucose Meter,Continuous (DEXCOM G7 CODER OPERATOR) [facility] For monitoring sugars glucagon (BAQSIMI) 3 mg/actuation nasal spray Use 1 Calvin in the nose as needed. May repeat after 15 minutes using a new device if there is no response for severe low blood sugar event aztreonam lysine (CAYSTON) 75 mg/mL nebulizer solution Inhale 1 mL as instructed three times daily. 28 days on 28 days off Send altera nebulizer with each shipment Nebulizers 1 Each three times daily. cetirizine (ZYRTEC) 5 mg tablet Take 10 mg by mouth once daily. Nebulizers 1 Each three times daily. pantoprazole DR (PROTONIX) 40 mg tablet Take 1 tablet by mouth two times a day before meals at 6 am and 4 pm. tranexamic acid (LYSTEDA) 650 mg tablet Take 2 tablets by mouth three times a day for 5 days. Vit A,C,Q-Qxvv-Lyaooq (PRESERVISION AREDS) 4,296 mcg-226 mg-90 mg cap Take 1 capsule by mouth twice daily. Take with food. montelukast (SINGULAIR) 10 mg tablet Take 1 tablet by mouth daily at bedtime. REVIEW OF SYSTEMS REVIEW OF SYSTEMS GENERAL: weight gain, recovering. No malaise or fevers, appetite and energy improving, but still below baseline. HERNÁNDEZ /winded after ADLs (making bed, grooming). HEENT: no sinus drainage or congestion. No hemoptysis RESPIRATORY: non productive cough (rare), CARDIOVASCULAR: no orthopnea or CP. Pedal edema resolved GI: No nausea, vomiting, or diarrhea and no melena PSYCH: Negative for sleep disturbance, mood disorder and recent psychosocial stressors ENDOCRINE: Negative for cold or heat intolerance, polyuria, polydipsia and goiter PHYSICAL EXAMINATION: VITAL SIGNS: BP 153/98 Pulse 89 Resp 18 Wt 95 lb 3.8 oz (43.2kg) SpO2 96% PHYSICAL EXAMINATION: General appearance: Well appearing, alert, in no acute distress, well-hydrated, well nourished. Skin: Skin color, texture, turgor normal, no suspicious rashes or lesions Head: Normocephalic, no masses, lesions, tenderness or abnormalities Eyes: Anicteric sclera. Pupils are equally round and reactive to light. Extraocular movements are intact. Ears: External ears normal, canals clear Nose/Sinuses: patent, no DC Oropharynx: Lips, mucosa, and tongue normal, teeth and gums normal, oropharynx normal Neck: Supple, no adenopathy; thyroid symmetric, normal size, no bruits Back: Normal exam Lungs: Fair AE, symmetrical exertion. Prolonged exp phase, wheezes with forced expiration. No rhonchi or crackles Heart: RRR without murmur, gallop, or rubs. No ectopy Abdomen: soft. No caput medusa. Musculoskeletal: No joint swelling, deformity, or tenderness Peripheral pulses: Normal Neuro: Gait normal. Reflexes normal and symmetric. Sensation grossly intact. DATA: Diagnostic tests reviewed for today's visit were personally reviewed by me: Sputum culture results and Most recent labs and imaging results. LAST LAB RESULTS: ---Reviewed in [facility] CBC with diff: WBC 5.68 03/17/2024 RBC 2.57 03/17/2024 Hemoglobin 7.4 03/17/2024 Hematocrit 22.7 03/17/2024 MCV 88.3 03/17/2024 MCH 28.8 03/17/2024 MCHC 32.6 03/17/2024 RDW-CV 13.9 03/17/2024 Platelet Count 147 03/17/2024 MPV 9.9 03/17/2024 Neutrophils % 49.9 03/17/2024 Lymph% 27.6 03/17/2024 [place]% 7.4 03/17/2024 Eosin% 13.7 03/17/2024 Baso% 1.2 03/17/2024 Abs Neut (Segs + Bands) 2.83 03/17/2024 Abs [place] 0.42 03/17/2024 Abs Eosin 0.78 03/17/2024 Abs Baso 0.07 03/17/2024 Glucose (mg/dL) Date Value 03/25/2024 230 12/08/2015 113 Potassium Date Value 03/25/2024 5.6 mmol/L 02/24/2024 4.9 Sodium Date Value 03/25/2024 134 mmol/L 12/08/2015 139 mEq/L Chloride Date Value 03/25/2024 110 mmol/L 12/08/2015 102 mEq/L CO2 Date Value 03/25/2024 22 mmol/L 12/08/2015 31 mEq/L Creatinine Date Value 03/25/2024 1.02 mg/dL 02/24/2024 1.60 MG/DL BUN (mg/dL) Date Value 03/25/2024 28 12/08/2015 16 Anion Gap Date Value 03/25/2024 2 mmol/L 12/08/2015 11 Calcium (mg/dL) Date Value 12/08/2015 9.3 Calcium, Total (mg/dL) Date Value 03/25/2024 8.6 Protein, Total (g/dL) Date Value 03/17/2024 8.0 12/08/2015 9.5 Albumin (g/dL) Date Value 03/17/2024 2.9 12/08/2015 3.4 Bilirubin, Total Date Value 03/17/2024 1.0 mg/dL 02/24/2024 0.70 Alkaline Phosphatase Date Value 03/17/2024 685 U/L 02/24/2024 915 AST Date Value 03/17/2024 70 U/L 02/24/2024 163 ALT Date Value 03/17/2024 51 U/L 02/24/2024 96 Vitamin D 25 Hydroxy (ng/mL) Date Value 02/27/2024 32.4 ] Hemoglobin A1C (POCT) Date Value Ref Range Status 03/09/2024 6.1 (A) 4.3 - 5.6 % Final Comment: Location:[facility], [address] [place] [address], Critical access hospital Point of care (POC) Hemoglobin A1c (HGBA1C) testing is intended to assess glucose control and provide a management tool for patients known to have diabetes and their healthcare providers. Target HGBA1C levels may depend on specific clinical circumstances. POC HGBA1C is not intended for use as a diagnostic or screening test; laboratory-based testing should be used for diagnostic purposes. The following information is supplemental and may not be applicable to specific diabetes management situations: The POC device forder operator provides a normal range of 4.2% to 6.5% for the HGBA1C POC test. However, the [place] [employer] guidelines indicate that patients with HGBA1C in the range of 5.7% to 6.4% are at increased risk for development of diabetes and that intervention by lifestyle modification may be beneficial. A HGBA1C level greater than or equal to 6.5% is considered diagnostic of diabetes, pending confirmatory testing. Use of HGBA1C testing to evaluate glucose control may not be appropriate for patients with hemoglobin variants or other conditions (e.g. anemia) that alter red blood cell lifespan. SPIROMETRY: Reviewed in [facility] SPIROMETRY BASELINE ONLY ([id number]) - ordered on 05/05/24 ID: [id number] Name: JAY BARBER Race: White Ht: 61.61 in Wt: 93.92 lbs Age: 28 Gender: Male : 1995 Dx: Cystic fibrosis_ Smoking Hx: Non-smoker Doctor: JEAN PIERRE KILGORE Test Date: 05/05/2024 Site: Tech: Stefani Godfrey PRE-BRONCH POST-BRONCH Pre LLN Pred ULN %Pred Post %Pred %Chg SPIROMETRY FVC (L) 2.58 2.79 3.58 4.39 71 FEV1 (L) 0.92 2.39 3.07 3.73 30 FEV1/FVC 0.36 0.75 0.86 0.94 41 PEF L/s (L/sec) 4.34 6.69 8.48 10.27 51 FEF50 (L/sec) 0.31 1.91 4.04 6.16 7 FIF50 (L/sec) 3.18 FEF50/FIF50 0.10 90-100 FIVC (L) 2.33 SMN65-06 (L/sec) 0.25 2.26 3.65 5.38 6 Time (sec) 14.78 FET PEF (sec) 0.04 MACIEL (L) 0.04 Vol Extrap % (%) 1 ID: [id number] Name: JAY BARBER Race: White Ht: 62.01 in Wt: 89.07 lbs Age: 28 Gender: Male : 1995 Dx: Cystic fibrosis with pulmonary manifestations Smoking Hx: Non-smoker Doctor: ALEX PINON Test Date: 02/25/2024 [facility] Tech: Padma Helm PRE-BRONCH POST-BRONCH Pre LLN Pred ULN %Pred Post %Pred %Chg SPIROMETRY FVC (L) 2.43 2.84 3.65 4.47 66 FEV1 (L) 0.85 2.43 3.13 3.79 27 FEV1/FVC 0.35 0.75 0.86 0.94 40 PEF L/s (L/sec) 3.77 6.74 8.56 10.38 44 FEF50 (L/sec) 0.28 1.99 4.11 6.24 6 FIF50 (L/sec) 2.74 FEF50/FIF50 0.10 90-100 FIVC (L) 2.25 UHI10-75 (L/sec) 0.23 2.29 3.70 5.44 6 Time (sec) 14.69 FET PEF (sec) 0.04 MACIEL (L) 0.03 Vol Extrap % (%) 1 SPIROMETRY BASELINE ONLY - ordered on 02/25/2024 ID: [id number] Name: JAY BARBER Race: White Ht: 62.01 in Wt: 99.21 lbs Age: 28 Gender: Male : 1995 Dx: Cystic fibrosis_ Smoking Hx: Non-smoker Doctor: ALEX PINON Test Date: 02/12/2024 Site: Tech: Marianna Landeros PRE-BRONCH POST-BRONCH Pre LLN Pred ULN %Pred Post %Pred %Chg SPIROMETRY FVC (L) 2.46 2.84 3.65 4.47 67 FEV1 (L) 0.87 2.43 3.13 3.79 27 FEV1/FVC 0.35 0.75 0.86 0.94 41 PEF L/s (L/sec) 3.83 6.74 8.56 10.38 44 FEF50 (L/sec) 0.26 1.99 4.11 6.24 6 FIF50 (L/sec) 2.81 FEF50/FIF50 0.09 90-100 FIVC (L) 2.27 FLQ90-93 (L/sec) 0.22 2.29 3.70 5.44 5 Time (sec) 15.19 FET PEF (sec) 0.04 MACIEL (L) 0.03 Vol Extrap % (%) 1 SPIROMETRY BASELINE ONLY ([id number]) - ordered on 11/12/23 ID: [id number] Name: JAY BARBER Race: White Ht: 62.01 in Wt: 89.00 lbs Age: 28 Gender: Male : 1995 Dx: Cystic fibrosis with pulmonary manifestations Smoking Hx: Non-smoker Doctor: SHE PETE Test Date: 11/12/2023 Site: Tech: Orquidea Bella PRE-BRONCH POST-BRONCH Pre LLN Pred ULN %Pred Post %Pred %Chg SPIROMETRY FVC (L) 2.60 2.84 3.65 4.47 71 FEV1 (L) 0.92 2.43 3.13 3.79 29 FEV1/FVC 0.35 0.75 0.86 0.94 41 PEF L/s (L/sec) 3.88 6.74 8.56 10.37 45 FEF50 (L/sec) 0.28 2.00 4.12 6.25 6 FIF50 (L/sec) 2.61 FEF50/FIF50 0.11 90-100 FIVC (L) 2.20 QGC61-05 (L/sec) 0.24 2.30 3.71 5.45 6 Time (sec) 14.86 FET PEF (sec) 0.04 MACIEL (L) 0.04 Vol Extrap % (%) 2 SPIROMETRY BASELINE ONLY ([id number]) - ordered on 09/24/23 ID: [id number] Name: JAY BARBER Race: White Ht: 62.01 in Wt: 87.52 lbs Age: 28 Gender: Male : 1995 Dx: Cystic fibrosis_ Smoking Hx: Non-smoker Doctor: JEAN PIERRE KILGORE Test Date: 09/24/2023 [facility] Tech: Padma Helm PRE-BRONCH POST-BRONCH Pre LLN Pred ULN %Pred Post %Pred %Chg SPIROMETRY FVC (L) 2.71 2.84 3.65 4.47 74 FEV1 (L) 1.03 2.44 3.13 3.80 33 FEV1/FVC 0.38 0.75 0.86 0.94 44 PEF L/s (L/sec) 4.03 6.74 8.56 10.37 47 FEF50 (L/sec) 0.36 2.00 4.13 6.25 8 FIF50 (L/sec) 2.47 FEF50/FIF50 0.15 90-100 FIVC (L) 2.43 SYK39-39 (L/sec) 0.29 2.30 3.71 5.46 7 Time (sec) 14.96 FET PEF (sec) 0.04 MACIEL (L) 0.03 Vol Extrap % (%) 1 SPIROMETRY BASELINE ONLY ([id number]) - ordered on 07/02/23 ID: [id number] Name: JAY BARBER Race: White Ht: 62.01 in Wt: 86.86 lbs Age: 28 Gender: Male : 1995 Dx: Cystic fibrosis_ Smoking Hx: Non-smoker Doctor: NABOR MAS Test Date: 07/24/2023 Site: Tech: Alicia Coello PRE-BRONCH POST-BRONCH Pre LLN Pred ULN %Pred Post %Pred %Chg SPIROMETRY FVC (L) 2.79 2.85 3.65 4.47 76 FEV1 (L) 1.15 2.44 3.14 3.80 36 FEV1/FVC 0.41 0.75 0.86 0.95 48 PEF L/s (L/sec) 4.29 6.74 8.56 10.37 50 FEF50 (L/sec) 0.40 2.01 4.13 6.26 9 FIF50 (L/sec) 3.24 FEF50/FIF50 0.12 90-100 FIVC (L) 2.30 XGI07-47 (L/sec) 0.31 2.31 3.72 5.47 8 Time (sec) 15.62 FET PEF (sec) 0.05 MACIEL (L) 0.04 Vol Extrap % (%) 1 MICROBIOLOGY: Reviewed MICROBIOLOGY SNAPSHOT Component Value Date CULT No Acid Fast Bacilli isolated after 35 days 03/25/2024 CULT No Fungus isolated after 28 days 03/25/2024 CULT Few Burkholderia vietnamiensis (A) 03/25/2024 CULT Rare normal respiratory vicky (A) 03/25/2024 CULT No growth 5 days 02/04/2024 CULT No growth (<1,000 CFU/ml) 02/04/2024 Written and verbal health teaching given to patient, patient verbalizes understanding and agrees with treatment plan. Return to clinic at [facility] in 12 weeks, with spirometry (spirometry baseline). I spent a total of 60 minutes on the date of the service which included preparing to see the patient, [id number] patient care, completing clinical documentation, obtaining and/or reviewing separately obtained history, and performing a medically appropriate examination. Electronically Signed: Jean Pierre Kilgore MD, FRANCI, FACP [facility] Respiratory [place] [facility] Adult CF Patients [phone]. Adult patients use option #2 Bronchiectasis (Non-CF) Patients [phone] Lump Room Supervisor: Nell Lozano [phone] Email: [email or web address] Office: [phone] May 05, 2024 documented in this encounter [facility] 05-05-2024 Note HNO ID: [id number] Author: STEFANI GODFREY RRT Service: ? Author Type: Registered Resp Therapist Type: Progress Notes Filed: 05/05/2024 15:06 Note Text: .PULM FUNCTION: Provider: Jean Pierre Kilgore MD Spirometry: 1 System: [facility] - [id number] [facility] 05-05-2024 History of Presen t illness Narrative .PULM FUNCTION: Provider: Jean Pierre Kilgore MD Spirometry: 1 [facility] [id number] documented in this encounter [facility] 05-05-2024 Note [facility] 05-05-2024 History of Presen t illness Narrative Annual Cystic Fibrosis Social Work Psychosocial Assessment Date of Assessment: 05/05/24 Participants in Encounter: sebastian Chan Demographic Information Patient Name: Jay Barber Marital Status: single Date of :[birth year] Age: 28 Biological sex at : M Diagnosis/medical history: Jay Barber is a 27 year old male, here for follow-up of Cystic Fibrosis 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, Trichosporonosis, Aspergillus ---Pancreatic insufficiency - on enzymes with Creon ---CFRD - follows with endocrinology ---CF Liver disease - complicated by portal hypertension, esophageal varices ---Chronic sinusitis ---Anxiety/Depression Family Composition Patient resides with: parents Siblings Ages/Live: unkwn Financial and Community Resources/Issues 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; 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 Annual Household Income: 25,000 Insurance [facility]/Other: Adult [facility] Copay Assistance Program: eligible for TeamLINKS, but not needed Financial Concerns: Parking/transportation/medicatio n: parking pass provided; no concerns obtaining or affording medications Daily Care Check in Completed: Yes/No: No Education School:[employer]-psychology major Any developmental issues/delays: none Educational Level of Father of Patient: unkwn Educational Level of Mother of Patient: unkwn Educational Level of Spouse: N/A Social History: -T/F care from [facility] -Advanced lung disease -Has not been interested in pursuing lung transplant -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[employer]-just started at new 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 2 weeks ago Family Support: parents, friends Family Violence: denies Parking placard: yes Mental Health History Patient: History of mental health intervention/dx:H/O anxiety/depression Medications: 2017 started celexa; stopped taking several months ago-felt is was limiting his emotions Psychiatric admissions:none SI/HI:denies Counseling:no counseling; denies referral Mental Health Coordination -previously on celexa; none now -declines counseling Depression and Anxiety (05/05/24) PHQ-9: 2 ELVIS-7: 1 Alcohol or Drug Use/Abuse/Treatment Patient:denies Tobacco/vaping use: none Second hand-smoke exposure: none Alternative Medicines/therapies: none Advanced Directives Not in EPIC Assessment/Plan Jay is here for an outpatient appointment. He lives with his parents 1 and 1/2 hour away in [place], [place]. He has [employer] Medicaid and adult [facility] for insurance. No issues obtaining or affording medications. His initial disability application was denied and he is now in the appeal process. He is working with CF social security project litigation attorney. He has a history of anxiety and depression. He was on citalopram 20 mg since 2017 but stopped taking months ago. He feels okay off of it. He has not been in counseling and does not feel he needs it at this time. Pt has consistently declined referral to transplant despite ALD. Discussed keeping busy/schedule while unable to work. SW will continue to follow. CHAPARRO Stubbs, [facility] Cystic Fibrosis Drip Box Tender V. [phone] documented in this encounter [facility] 04-30-2024 Note [facility] 04-30-2024 History of Presen t illness Narrative CF Pre-Clinic Checklist PRE-TRANSPLANT Last CF clinic visit date: 02/25/[address] Kilgore Microbiology: b. 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, Trichosporonosis, Aspergillus ---Pancreatic insufficiency - on enzymes with Creon ---CFRD - follows with endocrinology ---CF Liver disease - complicated by portal hypertension, esophageal varices ---Chronic sinusitis ---Anxiety/Depression Exacerbations in the last 12 months: -Hospital Admit: 02/03/24 - 02/16/24 for CF Exacerbation and Upper GIB -> treated with IV Meropenem, Minocycline and Vancomycin while inpatient -> discharged home on IV Meropenem and IV Vancomycin through 02/23/24 -Hospital Admit: 07/02/23-07/29/23 treated with Vancomycin through 07/06, Minocycline through 07/22, and Meropenum through 07/24 (not discharged home on any IV abx) -Hospital Admit: 03/07/23-03/11/23 -> discharged on Home IV abx Vanc and Larisa through 04/01/23 FEV1%: 27% on 02/25/24 FEV1%trend: 27% on 02/12/24 ; 29% on 09/24/23 ; 33% on 09/24/23; 36% on 07/24/23 ; 23% on 07/17/23 ; 23% on 07/10/23 ; 23% on 07/02/23 BMI: 15.56 kg/m BMI Trend: RD ANNUAL VISIT Needed: NEEDS for 2023 RT ANNUAL VISIT Needed: NEEDS for 2023 SW ANNUAL VISIT Needed: NEEDS for 2023 Mental health screen: NEEDS for 2023 ANNUAL Labs Needed: Completed on 02/27/24 Last OGTT/CFRD: +CFRD -> Follows with Tyler Ramirez CNP Dexa: Completed on 09/24/23 -> Lowest T-score is -3.1 in left femoral neck (repeat in August 2024) T/Z = > -1.0 - every 5 years T/Z = -1.0 to -2.0 - every 2-4 years T/Z = < -2.0 - every 1 year Colonoscopy (age > 35) N/A WNL-every 5 years Abnormal-every 3 or sooner Abdominal Ultra Sound: RUQ US last completed on 07/09/23 -> Cirrhotic liver morphology with hepatic steatosis. (Every 2 years if LFT's normal) Chronic Medications (List why If not on medication): CFTR modulators: Trikafta - on adjusted dosing due to Cirrhosis - reports taking 2 orange pills on even days of the month and 1 orange pill on odd days of the month, No blue pills Pulmozyme: once daily Hypertonic saline: has at home but not currently using Chronic Azithromycin (anti-inflammatory): No (on hold due to prior NTM) Inhaled Abx: [place] Ibuprofen: No Referral to Endo: follows with Stephie Ramirez CNP - [facility] on 03/09/24 Referral to Transplant: Lung and liver discussed extensively with patient during July 2023 hospital admission - pt eventually deferred at hospital discharge EPIC/Phone Messages since last visit: Plan for visit: - Sj ordered and scheduled - Due for [address] - Due for annual 2023 visit with SW - Due for annual 2023 visit with RT - msg sent to scheduling - FYI- dropped off sputum sample on 03/25/24 - AFB culture from 02/03/24 grew Mycobacterium chelonae - 03/25/24 AFB prelim still negative at this time - REMIND PATIENT: Has Endocrinology visit scheduled with Stephie Ramirez CNP on 07/06/24 - needs f/u from his latest DEXA results on 09/22/23 -> lowest T-score -3.1 in L femoral neck - REMIND PATIENT: Has Hepatology visit scheduled with Dr. Lindo on 07/16/24 documented in this encounter [facility] 04-07-2024 Note [facility] 04-07-2024 History of Presen t illness Narrative NAME: Jay Barber AGE: [age] year old Patient is referred in consultation by for an opinion regarding abnormal liver test and my final recommendations will be communicated back to the requesting physician by way of shared Medical Record. 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 Patient has a chronically elevated AP for many years, with an acute rise around 800s-900s during most recent admission for CF related pulmonary complications in January 2024. At that time, I recommended a MRCP to evaluate patient's bile ducts for ductopenia and biliary duct obliteration from possible mucous plugging of these ducts. Patient has still not had the MRCP scheduled as he was not sure if he still needs to proceed with it. If unremarkable, our plan was to obtain a transjugular liver biopsy to evaluate for small duct PSC and microscopic evidence of cholestatic changes/bile duct obliteration. Patient states that his energy levels have improved since his admission. He denies fever/chills, chest pain, shortness of breath, GI bledding, abdominal pain, or lower extremity swelling. Liver enzyme trend has been as follows: Component Ref Range & Units 3 wk ago (03/17/24) 1 mo ago (03/05/24) 1 mo ago (02/27/24) 1 mo ago (02/24/24) 1 mo ago (02/16/24) Protein, Total 6.3 - 8.0 g/dL 8.0 8.5 High 8.1 High 6.9 Albumin 3.9 - 4.9 g/dL 2.9 Low 2.8 Low 2.6 Low 1.9 Low Calcium, Total 8.5 - 10.2 mg/dL 8.9 9.3 9.0 8.3 Low Bilirubin, Total 0.2 - 1.3 mg/dL 1.0 1.0 0.8 0.7 Alkaline Phosphatase 38 - 113 U/L 685 High 807 High 913 High 915 Abnormal R 774 High AST 14 - 40 U/L 70 High 71 High 111 High 163 Abnormal R 57 High ALT 10 - 54 U/L 51 54 73 High 96 Abnormal R 27 Glucose 74 - 99 mg/dL 81 392 High CM 120 High CM 183 High PAST SURGICAL HISTORY Procedure Laterality Date PAST SURGICAL HISTORY OF splenal renal shunt to treat portal hypertension PICC LINE INSERT/CONSULT 03/08/2023 PICC LINE INSERT/CONSULT 02/03/2024 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 carvedilol (COREG) 25 mg tablet Take 1 tablet by mouth two times a day with meals. 30 tablet 11 insulin glargine (LANTUS SOLOSTAR U-100 INSULIN) 100 unit/mL (3 mL) inject 11 units subcutaneously at bedtime 15 mL 3 Lancets Use as instructed 3x/day 300 Each 3 blood sugar diagnostic (BLOOD GLUCOSE TEST) test strip 3x/day 300 Each 3 insulin lispro (HUMALOG KWIKPEN INSULIN) 100 unit/mL Dose varies units with meals and sliding scale, using about 30 total units a day 15 mL 11 Blood-Glucose Sensor (Manyeta G7 SENSOR) jean-paul use as directed and REPLACE every 10 days 3 Each 11 polyethylene glycol 3350 17 gram packet Take 1 Packet by mouth once daily as needed. Dissolve dose in 4 - 8 ounces of liquid and take as directed. pantoprazole DR (PROTONIX) 40 mg tablet Take 1 tablet by mouth two times a day before meals at 6 am and 4 pm. 60 tablet 1 Insulin Calvin, Disposable, (BD YARON 2ND GEN PEN NEEDLE) 32 gauge x 5/32 5x/day 500 Each 3 zinc sulfate 220 mg capsule Take 1 capsule by mouth once daily for 2 weeks and 2 capsules per week thereafter 30 capsule 3 cholecalciferol, Vitamin D3, (VITAMIN D3) 1,250 mcg (50,000 unit) cap capsule Take 1 capsule by mouth two times a week. 8 capsule 3 tranexamic acid (LYSTEDA) 650 mg tablet Take 2 tablets by mouth three times a day for 5 days. 30 tablet 3 CREON 36,000-114,000- 180,000 unit delayed release capsule Take 3 capsules by mouth three times a day with meals. 3 with snacks 1350 capsule 5 dornase christi (PULMOZYME) 1 mg/mL nebulizer solution Inhale 2.5 mL as instructed once daily. 225 mL 3 elexacaftor 100 mg-tezacaftor 50 mg-ivacaftor 75 mg(d)/ivacaftor 150 mg(n) tablets (TRIKAFTA) Alternate between 2(starting 07/30) and 1 tablet every morning , hold evening dose 84 Each 11 ipratropium-albuterol (DUONEB) 0.5 mg-3 mg(2.5 mg base)/3 mL nebu Inhale 3 mL as instructed every 4 hours as needed for wheezing/shortness of breath. 360 mL 11 Blood-Glucose Meter monitoring kit For monitoring sugars 3x/day 1 Each 1 albuterol HFA (VENTOLIN HFA) 90 mcg/actuation inhaler inhale 2 puffs by mouth as directed every 4 hours if needed for wheezing or shortness of breath 54 g 11 Blood-Glucose Meter,Continuous (DEXCOM G7 CODER OPERATOR) [facility] For monitoring sugars 1 Each 1 glucagon (BAQSIMI) 3 mg/actuation nasal spray Use 1 Calvin in the nose as needed. May repeat after 15 minutes using a new device if there is no response for severe low blood sugar event 2 Each 3 aztreonam lysine (CAYSTON) 75 mg/mL nebulizer solution Inhale 1 mL as instructed three times daily. 28 days on 28 days off Send altera nebulizer with each shipment 84 mL 6 Nebulizers 1 Each three times daily. 1 Each 11 cetirizine (ZYRTEC) 5 mg tablet Take 10 mg by mouth once daily. montelukast (SINGULAIR) 10 mg tablet Take 1 tablet by mouth daily at bedtime. 90 tablet 5 Nebulizers 1 Each three times daily. 1 Each 0 ursodiol (ACTIGALL) 300 mg capsule Take 1 capsule by mouth two times a day. 30 capsule 2 bumetanide (BUMEX) 1 mg tablet Take 1 tablet by mouth once daily. (Patient not taking: Reported on 04/07/2024) 30 tablet 1 vitamin A (AQUASOL A) 10,000 unit capsule Take 1 capsule by mouth once daily. (Patient not taking: Reported on 04/07/2024) 30 capsule 1 PRESERVISION AREDS-2 250-90-40-1 mg take 1 capsule by mouth twice a day with food (Patient not taking: Reported on 04/07/2024) Vit A,C,N-Ncvz-Jdpxbo (PRESERVISION AREDS) 4,296 mcg-226 mg-90 mg cap Take 1 capsule by mouth twice daily. Take with food. 60 capsule 0 VITAMIN D2 1,250 mcg (50,000 unit) capsule Take 1 capsule by mouth two times a week. 24 capsule 3 No current facility-administered medications for this visit. ALLERGIES Allergen Reactions Vancomycin Itching, Rash Gets Red Man syndrome and pt if not premedicated with benadryl prior to Vancomycin infusions. Cefoxitin Rash, Other: See Comments Severe abdominal pain, diarrhea, rash Severe Abdominal Pains Linezolid Rash, GI Upset FAMILY HISTORY Liver Problems: No FAMILY HISTORY Problem Relation Age of Onset Hypertension Mother Breast Cancer Other other (hypercholesterolemia) Other other (heart disease in female family member before age 65) Other GI SPECIFIC ROS 14 point ROS reviewed and negative except as noted above PHYSICAL EXAMINATION BP 135/78 Pulse 87 Temp (Src) 99.5 (Temporal) Ht 5' 2 (1.58m) Wt 94 lb 12.8 oz (43.0kg) SpO2 97% BMI 17.33 kg/(m^2). General Appearance: Well appearing, alert, in no acute distress, well-hydrated, A/O x 3, thin, malnourished Eyes: no icterus Abdomen: not distended Extremities: no cyanosis or edema Skin: no jaundice, no spider angiomas, no palmar erythema Neuro:alert, oriented x 3, pleasant and in no acute distress Recent Labs: Hemoglobin (g/dL) Date Value 03/17/2024 7.4 02/24/2024 7.5 Hematocrit (%) Date Value 03/17/2024 22.7 02/24/2024 23.1 WBC Date Value 03/17/2024 5.68 k/uL 02/24/2024 4.0 K/uL Glucose (mg/dL) Date Value 03/25/2024 230 12/08/2015 113 Potassium Date Value 03/25/2024 5.6 mmol/L 02/24/2024 4.9 Sodium Date Value 03/25/2024 134 mmol/L 12/08/2015 139 mEq/L Chloride Date Value 03/25/2024 110 mmol/L 12/08/2015 102 mEq/L CO2 Date Value 03/25/2024 22 mmol/L 12/08/2015 31 mEq/L Creatinine Date Value 03/25/2024 1.02 mg/dL 02/24/2024 1.60 MG/DL BUN (mg/dL) Date Value 03/25/2024 28 12/08/2015 16 Anion Gap Date Value 03/25/2024 2 mmol/L 12/08/2015 11 Calcium (mg/dL) Date Value 12/08/2015 9.3 Calcium, Total (mg/dL) Date Value 03/25/2024 8.6 Albumin (g/dL) Date Value 03/17/2024 2.9 (L) Bilirubin, Total (mg/dL) Date Value 03/17/2024 1.0 Bilirubin, Conjugated (mg/dL) Date Value 07/24/2023 0.7 (H) Alkaline Phosphatase (U/L) Date Value 03/17/2024 685 (H) AST (U/L) Date Value 03/17/2024 70 (H) ALT (U/L) Date Value 03/17/2024 51 Protein, Total (g/dL) Date Value 03/17/2024 8.0 MELD 3.0: 10 at 02/27/2024 1:16 PM MELD-Na: 6 at 02/27/2024 1:16 PM Calculated from: Serum Creatinine: 1.02 mg/dL at 02/27/2024 1:16 PM Serum Sodium: 134 mmol/L at 02/27/2024 1:16 PM Total Bilirubin: 0.8 mg/dL (Using min of 1 mg/dL) at 02/27/2024 1:16 PM Serum Albumin: 2.6 g/dL at 02/27/2024 1:16 PM INR(ratio): 1.0 at 02/27/2024 1:16 PM Age at listing (hypothetical): 28 years Sex: Male at 02/27/2024 1:16 PM Assessment Jay Barber is a 28 year old male with PMH of cystic fibrosis, DM related to CF, CF-related advanced liver disease c/b pHTN c/b ascites, EV c/b UGIB (2009, 2011) requiring surgical splenorenal shunt creation (2011, [facility]), h/o G1EV and EV (last EGD 07/16/23- small EV) presenting for follow-up consultation. #Elevated AP-differentials include bile duct obliteration from known CF vs. less likely PBC vs. PSC PLAN -MRCP to evaluate for bile duct obliteration, biliary strictures, etc. -If MRCP unremarkable, may need to obtain liver biopsy to assess for small duct PSC and pathological evidence of bile duct damage related to CF -Will initiate Ursodiol 600 mg daily for now (close to 15 mg/kg/day) to see if that helps improve AP -If biopsy is pursued, will do transjugular approach to also evaluate for residual sequelae of portal HTN (patient has had surgical splenorenal shunt creation in 2011 for portal HTN) in setting of concern for CF related hepatic fibrosis/infiltrative disease Return to office in 4 months. During this patient visit I have spent approximately 20 minutes out of 30 in counseling regarding treatment options and coordinating care. Tia Lindo MD April 07, 2024 3:36 PM documented in this encounter [facility] 04-07-2024 Instructions Tia Lindo MD - 04/07/2024 1:51 PM EDT Schedule RV with Dr. Lindo in 3 months Schedule MRCP as soon as possible Get blood work done in 2 weeks. Take ursodiol 600 mg once daily documented in this encounter [facility] 03-26-2024 Telephone encounter Note Images from the original note were not included. Medication: SPS 15GM/60ML suspension Date Submitted: March 26, 2024 Prescribing Provider: Sally Schneider CNP Method of Submission: CMM Outcome: Denied Reason for Denial: Outcome Date: March 26, 2024 PRABHA Arriaga [facility] 03-26-2024 Miscellaneous Notes Images from the original note were not included. Medication: SPS 15GM/60ML suspension Date Submitted: March 26, 2024 Prescribing Provider: Sally Schneider CNP Method of Submission: CMM Outcome: Denied Reason for Denial: Outcome Date: March 26, 2024 PRABHA Arriaga documented in this encounter [facility] 03-09-2024 Instructions Stephie Ramirez APRN.CNP - 03/09/2024 1:24 PM EDT Patient educated to have ophthalmology visits at least once a year. documented in this encounter [facility] 03-09-2024 Note HNO ID: [id number] Author: STEPHIE RAMIREZ APRN.ACQUISITION ANALYST Service: ? Author Type: Nurse Practitioner Type: Progress Notes Filed: 03/09/2024 16:10 Note Text: Subjective Date of encounter: 03/09/2024 Jay Barber (1995), is a 28 year old male who presents for Diabetes management Important Lab History: HBA1C:10/2013: 10.8%, 12/2013: 7.4%, 03/2014: 9.6%, 03/2014: 8.1%, 05/2014: 6.7%, 05/2015: 6.9%, 08/2015: 8.4%, 12/2015: HbA1c 8.3%, 03/2016: 8.9%, 05/2016: 7.0%, 01/2018: 9.6%, 05/2018: 10.3%, 08/2018: 8.2%, 10/2018: 7.9%, 01/2019: 8.1%, 03/2019: 6.6%, 07/2019: 6.5%, 12/2019: 6.9%, 07/2020: 6.6%, 08/2020: 6.4%, 01/2021: HbA1C 8.3%, 03/2021: 8.3%, 05/2021: 7.4%, 08/2021: 7.4%, 12/2021: 7.5%, 07/2022: 8.6%, 10/2022: 8.4%, 03/2023: 7.7%, 07/2023: 6.9%, 10/2023: 6.4%, 01/2024: 6.3%, 03/2024: 6.1%, Thyroid Function Testin10/2013: TSH 2.29 (0.358-3.740), free T4 1.02 (0.76-1.46), 12/2015: TSH 1.970 (0.358-3.740 uIU/mL), free T4 1.15 (0.76-1.46 ng/dL), 01/2018: TSH 1.735 (0.35-5.5), 12/2018: TSH 1.137 (0.35-5.5), 05/2019: TSH 2.293 (0.35-5.5), 01/2020: TSH 1.754 (0.35-5.5), free T4 1.2 (0.9-1.5), 01/2021: TSH 1.9 (0.27-4.2 uIU/mL), free T4 1.2 (0.9-1.7), 12/2021: TSH 3.41 (0.27-4.2 uIU/mL), free T4 1.1 (0.9-1.7), 07/2023: TSH 2.35 (0.27-4.2 uIU/mL), Renal Function Testin08/2013: creatinine 0.7, 12/2015: creatinine 0.69 mg/dL, eGFR >60,), 05/2018: Creatinine 0.72, 01/2019: Creatinine 0.86, 07/2019: Creatinine 0.73, 07/2020: Creatinine 0.65, 10/2020: Creatinine 0.64, 01/2021: Creatinine 0.81, 03/2021: Creatinine 0.73, 12/2021: Creatinine 0.64, 12/2022: Creatinine 0.78, 03/2023: Creatinine 0.83, 08/2023: Creatinine 1.13 eGFR 90, 10/2023: Creatinine 1.04, 03/2024: Creatinine 1.37 eGFR 71 Urine for Microalbumin:10/2013: Microalbumin:Creatinine ratio ok,12/2015: microalbumin : creatinine ratio ok, 08/2017: Microalbumin:Creatinine Ratio ok, 10/2018: Microalbumin:Creatinine Ratio 535, 01/03/2020: Microalbumin:Creatinine Ratio 650, 01/2021: Microalbumin:Creatinine Ratio 361. Improved but above goal. Jay states he has used lisinopril in the past but this increased his potassium too much and it was discontinued. He will inquire further with his CF providers about losartan. I advised him to make an appointment with nephrology as we had previously discussed., 03/19/2021: Microalbumin:Creatinine Ratio 1220, 08/2021: still hasn't made appointment with kidney specialist, stressed the importance of this to prevent further kidney damage., 10/2022: prot/creat ratio in [facility], making appointment with nephrology, 07/2023: prot/creat ratio in [facility] Lipid Profile:10/2013: TC 111, HDL 42, LDL 56, TG 56, 12/2015: TC 122, HDL 52, LDL 60, TG 49, 10/2018: TC 160, HDL 72, LDL 71, TG 83, 01/03/2020: TC 253 HDL 133 LDL 112 TG 38, 01/2021: TC 179 HDL 115 LDL 54 TG 51, 03/2021: TC 233 HDL 143 LDL 84 TG 32 Liver Profile:08/2013: AST 93, ALT 65, Alkaline Phosphatase 811, 12/2015: AST 110 (9-37 U/L), ALT 164 (12-78 U/L), alkaline phosphatase 807 (46-116 U/L), Bilirubin, total 1.3 (0.2-1.0, mg/dL, 05/2018: results in care everywhere, 12/2019: results in [facility] everywhere, 01/2020: labs in [facility], 07/2020; Alkaline Phosphatase 725 (45-117), ALT 77 (16-61), AST 163 (15-37), 12/2020: results in care everywhere., 03/2021: results In care everywhere, 12/2021: Alkaline Phosphatase 918 (38-113), bone percent 13.9%, liver percent 86.1 , 12/2022: liver function monitored by CF providers, 03/2023: in [facility], 08/2023: LFTS in [facility], 10/2023: LFTS in [facility], 03/2024: liver test in [facility] Dilated Eye Exam: Patient educated to have ophthalmology visits at least once a year. 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 08/2013: New patient visit for Cystic Fibrosis related Diabetes [facility] prior to today's office visit. Any changes made at our last diabetes management visit were abstracted accordingly (if applicable). Today's Office Visit: Jaydon Dennis: reminded patient to make appointment with for osteoporosis again 03/2024 Nephrology: following Hepatology: following. Hematology: had appointment per patient. Lipids: advised to discuss with CF providers, may not be able to treat with high liver enzymes. Endocrinology: we manage patients CFRD only. self monitoring blood glucose data : see dexcom report. Average 14 day SG 205 predicted gmi n/a%, 44% TIR 2% low range. Reviewed to calibrate more often, review how/when to calibrate and to use physical BG for treatment decisions if ever doubting sensor accuracy. Recently dc'd from hospital, diet has been returning. Diet: can be high in carbs per patient due to CF diet to gain weight per patient.. Exercise: as tolerated History of hypoglycemia unawareness,-using dexcom now. Likes the g7 Insulin pump: not interested at this time until its approved with g7. Glucagon kit: has baqsimi. Your new i (more content not included)... [facility] 03-09-2024 History of Presen t illness Narrative Subjective Date of encounter: 03/09/2024 Jay Barber (1995), is a 28 year old male who presents for Diabetes management Important Lab History: HBA1C:10/2013: 10.8%, 12/2013: 7.4%, 03/2014: 9.6%, 03/2014: 8.1%, 05/2014: 6.7%, 05/2015: 6.9%, 08/2015: 8.4%, 12/2015: HbA1c 8.3%, 03/2016: 8.9%, 05/2016: 7.0%, 01/2018: 9.6%, 05/2018: 10.3%, 08/2018: 8.2%, 10/2018: 7.9%, 01/2019: 8.1%, 03/2019: 6.6%, 07/2019: 6.5%, 12/2019: 6.9%, 07/2020: 6.6%, 08/2020: 6.4%, 01/2021: HbA1C 8.3%, 03/2021: 8.3%, 05/2021: 7.4%, 08/2021: 7.4%, 12/2021: 7.5%, 07/2022: 8.6%, 10/2022: 8.4%, 03/2023: 7.7%, 07/2023: 6.9%, 10/2023: 6.4%, 01/2024: 6.3%, 03/2024: 6.1%, Thyroid Function Testin10/2013: TSH 2.29 (0.358-3.740), free T4 1.02 (0.76-1.46), 12/2015: TSH 1.970 (0.358-3.740 uIU/mL), free T4 1.15 (0.76-1.46 ng/dL), 01/2018: TSH 1.735 (0.35-5.5), 12/2018: TSH 1.137 (0.35-5.5), 05/2019: TSH 2.293 (0.35-5.5), 01/2020: TSH 1.754 (0.35-5.5), free T4 1.2 (0.9-1.5), 01/2021: TSH 1.9 (0.27-4.2 uIU/mL), free T4 1.2 (0.9-1.7), 12/2021: TSH 3.41 (0.27-4.2 uIU/mL), free T4 1.1 (0.9-1.7), 07/2023: TSH 2.35 (0.27-4.2 uIU/mL), Renal Function Testin08/2013: creatinine 0.7, 12/2015: creatinine 0.69 mg/dL, eGFR >60,), 05/2018: Creatinine 0.72, 01/2019: Creatinine 0.86, 07/2019: Creatinine 0.73, 07/2020: Creatinine 0.65, 10/2020: Creatinine 0.64, 01/2021: Creatinine 0.81, 03/2021: Creatinine 0.73, 12/2021: Creatinine 0.64, 12/2022: Creatinine 0.78, 03/2023: Creatinine 0.83, 08/2023: Creatinine 1.13 eGFR 90, 10/2023: Creatinine 1.04, 03/2024: Creatinine 1.37 eGFR 71 Urine for Microalbumin:10/2013: Microalbumin:Creatinine ratio ok,12/2015: microalbumin : creatinine ratio ok, 08/2017: Microalbumin:Creatinine Ratio ok, 10/2018: Microalbumin:Creatinine Ratio 535, 01/03/2020: Microalbumin:Creatinine Ratio 650, 01/2021: Microalbumin:Creatinine Ratio 361. Improved but above goal. Jay states he has used lisinopril in the past but this increased his potassium too much and it was discontinued. He will inquire further with his CF providers about losartan. I advised him to make an appointment with nephrology as we had previously discussed., 03/19/2021: Microalbumin:Creatinine Ratio 1220, 08/2021: still hasn't made appointment with kidney specialist, stressed the importance of this to prevent further kidney damage., 10/2022: prot/creat ratio in [facility], making appointment with nephrology, 07/2023: prot/creat ratio in [facility] Lipid Profile:10/2013: TC 111, HDL 42, LDL 56, TG 56, 12/2015: TC 122, HDL 52, LDL 60, TG 49, 10/2018: TC 160, HDL 72, LDL 71, TG 83, 01/03/2020: TC 253 HDL 133 LDL 112 TG 38, 01/2021: TC 179 HDL 115 LDL 54 TG 51, 03/2021: TC 233 HDL 143 LDL 84 TG 32 Liver Profile:08/2013: AST 93, ALT 65, Alkaline Phosphatase 811, 12/2015: AST 110 (9-37 U/L), ALT 164 (12-78 U/L), alkaline phosphatase 807 (46-116 U/L), Bilirubin, total 1.3 (0.2-1.0, mg/dL, 05/2018: results in care everywhere, 12/2019: results in care everywhere, 01/2020: labs in [facility], 07/2020; Alkaline Phosphatase 725 (45-117), ALT 77 (16-61), AST 163 (15-37), 12/2020: results in care everywhere., 03/2021: results In care everywhere, 12/2021: Alkaline Phosphatase 918 (38-113), bone percent 13.9%, liver percent 86.1 , 12/2022: liver function monitored by CF providers, 03/2023: in [facility], 08/2023: LFTS in [facility], 10/2023: LFTS in [facility], 03/2024: liver test in [facility] Dilated Eye Exam: Patient educated to have ophthalmology visits at least once a year. 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 08/2013: New patient visit for Cystic Fibrosis related Diabetes Previous diabetes related labs from [facility] and [facility]everywhere systems reviewed prior to today's office visit. Any changes made at our last diabetes management visit were abstracted accordingly (if applicable). Today's Office Visit: Jaydon Dennis: reminded patient to make appointment with for osteoporosis again 03/2024 Nephrology: following Hepatology: following. Hematology: had appointment per patient. Lipids: advised to discuss with CF providers, may not be able to treat with high liver enzymes. Endocrinology: we manage patients CFRD only. self monitoring blood glucose data : see dexcom report. Average 14 day SG 205 predicted gmi n/a%, 44% TIR 2% low range. Reviewed to calibrate more often, review how/when to calibrate and to use physical BG for treatment decisions if ever doubting sensor accuracy. Recently dc'd from hospital, diet has been returning. Diet: can be high in carbs per patient due to CF diet to gain weight per patient.. Exercise: as tolerated History of hypoglycemia unawareness,-using dexcom now. Likes the g7 Insulin pump: not interested at this time until its approved with g7. Glucagon kit: has baqsimi. Your new insulin regimen: Long acting insulin: Insulin used for this is called: Basaglar Bedtime dose 8 units-->since being out of the hospital, recently increased to 10 units a week or so ago Rapid acting /mealtime insulin: Insulin used for this is called: Humalog or Novolog insulin unit:grams of carb ratio Meal time dosin:20 , does not want to make this more aggressive despite consistent post meal elevations at this time. States any more insulin would result in a low blood sugar. States main issue is more frequent snacking. Your sliding scale, for additional units of the rapid acting insulin: Insulin used for this is called: Humalog or Novolog Take this at meals, in addition to the above doses. 1:50/250 Typical Day: varies Always check blood sugar prior to driving. Carry glucose tablets when travelling. I reviewed and updated the below Review of Systems for today's office visit. Review of Systems Constitutional: Negative for weight loss. HENT: Negative for ear pain. Eyes: Negative for pain. Respiratory: Negative for shortness of breath. Cardiovascular: Negative for chest pain. Gastrointestinal: Negative for abdominal pain, blood in stool and melena. Genitourinary: Negative for hematuria. Musculoskeletal: Negative for falls. Neurological: Negative for loss of consciousness. 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) Transfusion history Type 1 diabetes mellitus with hyperglycemia (HCC) PAST SURGICAL HISTORY Procedure Laterality Date PAST SURGICAL HISTORY OF splenal renal shunt to treat portal hypertension PICC LINE INSERT/CONSULT 03/08/2023 PICC LINE INSERT/CONSULT 02/03/2024 FAMILY HISTORY Problem Relation Age of Onset Hypertension Mother Breast Cancer Other other (hypercholesterolemia) Other other (heart disease in female family member before age 65) Other Social History Tobacco Use Smoking status: Never Smokeless tobacco: Never Vaping Use Vaping Use: Never used Substance Use Topics Alcohol use: No Drug use: No Current Meds Blood-Glucose Sensor (DEXCOM G7 SENSOR) jean-paul use as directed and REPLACE every 10 days carvedilol (COREG) 25 mg tablet Take 1 tablet by mouth two times a day with meals. polyethylene glycol 3350 17 gram packet Take 1 Packet by mouth once daily as needed. Dissolve dose in 4 - 8 ounces of liquid and take as directed. pantoprazole DR (PROTONIX) 40 mg tablet Take 1 tablet by mouth two times a day before meals at 6 am and 4 pm. bumetanide (BUMEX) 1 mg tablet Take 1 tablet by mouth two times a day. Insulin Calvin, Disposable, (BD YARON 2ND GEN PEN NEEDLE) 32 gauge x 5/32 5x/day zinc sulfate 220 mg capsule Take 1 capsule by mouth once daily for 2 weeks and 2 capsules per week thereafter vitamin A (AQUASOL A) 10,000 unit capsule Take 1 capsule by mouth once daily. cholecalciferol, Vitamin D3, (VITAMIN D3) 1,250 mcg (50,000 unit) cap capsule Take 1 capsule by mouth two times a week. PRESERVISION AREDS-2 250-90-40-1 mg take 1 capsule by mouth twice a day with food tranexamic acid (LYSTEDA) 650 mg tablet Take 2 tablets by mouth three times a day for 5 days. CREON 36,000-114,000- 180,000 unit delayed release capsule Take 3 capsules by mouth three times a day with meals. 3 with snacks dornase christi (PULMOZYME) 1 mg/mL nebulizer solution Inhale 2.5 mL as instructed once daily. elexacaftor 100 mg-tezacaftor 50 mg-ivacaftor 75 mg(d)/ivacaftor 150 mg(n) tablets (TRIKAFTA) Alternate between 2(starting 07/30) and 1 tablet every morning , hold evening dose ipratropium-albuterol (DUONEB) 0.5 mg-3 mg(2.5 mg base)/3 mL nebu Inhale 3 mL as instructed every 4 hours as needed for wheezing/shortness of breath. Vit A,C,D-Uekj-Xcdcnh (PRESERVISION AREDS) 4,296 mcg-226 mg-90 mg cap Take 1 capsule by mouth twice daily. Take with food. Blood-Glucose Meter monitoring kit For monitoring sugars 3x/day albuterol HFA (VENTOLIN HFA) 90 mcg/actuation inhaler inhale 2 puffs by mouth as directed every 4 hours if needed for wheezing or shortness of breath fluticasone (FLONASE) 50 mcg/actuation nasal spray Use 1-2 Sprays in each nostril once daily. fluticasone (FLOVENT) 220 mcg/actuation inhaler Inhale 1 Puff as instructed twice daily. Blood-Glucose Meter,Continuous (DEXCOM G7 CODER OPERATOR) [facility] For monitoring sugars glucagon (BAQSIMI) 3 mg/actuation nasal spray Use 1 Calvin in the nose as needed. May repeat after 15 minutes using a new device if there is no response for severe low blood sugar event aztreonam lysine (CAYSTON) 75 mg/mL nebulizer solution Inhale 1 mL as instructed three times daily. 28 days on 28 days off Send altera nebulizer with each shipment Nebulizers 1 Each three times daily. cetirizine (ZYRTEC) 5 mg tablet Take 10 mg by mouth once daily. montelukast (SINGULAIR) 10 mg tablet Take 1 tablet by mouth daily at bedtime. Nebulizers 1 Each three times daily. insulin glargine (LANTUS SOLOSTAR U-100 INSULIN) 100 unit/mL (3 mL) inject 11 units subcutaneously at bedtime Lancets Use as instructed 3x/day blood sugar diagnostic (BLOOD GLUCOSE TEST) test strip 3x/day insulin lispro (HUMALOG KWIKPEN INSULIN) 100 unit/mL Dose varies units with meals and sliding scale, using about 30 total units a day VITAMIN D2 1,250 mcg (50,000 unit) capsule Take 1 capsule by mouth two times a week. ursodiol (ACTIGALL) 300 mg capsule Take 300 mg by mouth twice daily. Objective BP 128/76 Ht 157.5 cm (5' 2 ) Wt 41 kg (90 lb 6.4 oz) BMI 16.53 kg/m Physical Exam Constitutional: General: He is not in acute distress. Appearance: He is not toxic-appearing. HENT: Head: Normocephalic and atraumatic. Eyes: General: No scleral icterus. Conjunctiva/sclera: Conjunctivae normal. Cardiovascular: Rate and Rhythm: Normal rate and regular rhythm. Pulmonary: Effort: Pulmonary effort is normal. No respiratory distress. Breath sounds: Normal breath sounds. No wheezing or rales. Skin: General: Skin is warm. Neurological: Mental Status: He is alert. Psychiatric: Mood and Affect: Mood and affect normal. Mood is not anxious. Judgment: Judgment normal. ASSESSMENT/PLAN: 1. Type 1 diabetes mellitus with hyperglycemia (HCC) - ICD9: 250.01, ICD10: E10.65 - HEMOGLOBIN A1C (POC) - GLUCOSE MONITOR, 72 HOUR, PHYS INTERP Your new insulin regimen: Long acting insulin: Insulin used for this is called: Basaglar or lantus Bedtime dose 11 units Rapid acting /mealtime insulin: Insulin used for this is called: Humalog or Novolog insulin unit:grams of carb ratio Meal time dosin:20 Your sliding scale, for additional units of the rapid acting insulin: Insulin used for this is called: Humalog or Novolog Take this at meals, in addition to the above doses. 1:50/250 Plan of Care: 1. Will adjust insulin dosing as noted above. 2. Notify me in between visits if glycemia is trending above/below goals. 3. Total time for today's office visit was greater than 30 minutes. Greater than 50% of the time was spent in counseling and/or coordination of care. 4. Self monitoring blood glucose log sheet(s) were given to the patient. Instructed to fill out sheets and bring log to next visit. 5. Answered all questions. 6. Patient verbalized understanding of all the above instructions. 7. Discussed therapeutic lifestyle changes. Stephie Ramirez APRN.ARIAS documented in this encounter [facility] 03-09-2024 Note HNO ID: [id number] Author: STEPHIE RAMIREZ APRN.CNP Service: ? Author Type: Nurse Practitioner Type: Progress Notes Filed: 03/09/2024 08:48 Note Text: Subjective Important Lab History: HBA1C:10/2013: 10.8%, 12/2013: 7.4%, 03/2014: 9.6%, 03/2014: 8.1%, 05/2014: 6.7%, 05/2015: 6.9%, 08/2015: 8.4%, 12/2015: HbA1c 8.3%, 03/2016: 8.9%, 05/2016: 7.0%, 01/2018: 9.6%, 05/2018: 10.3%, 08/2018: 8.2%, 10/2018: 7.9%, 01/2019: 8.1%, 03/2019: 6.6%, 07/2019: 6.5%, 12/2019: 6.9%, 07/2020: 6.6%, 08/2020: 6.4%, 01/2021: HbA1C 8.3%, 03/2021: 8.3%, 05/2021: 7.4%, 08/2021: 7.4%, 12/2021: 7.5%, 07/2022: 8.6%, 10/2022: 8.4%, 03/2023: 7.7%, 07/2023: 6.9%, 10/2023: 6.4%, 01/2024: 6.3%, Thyroid Function Testin10/2013: TSH 2.29 (0.358-3.740), free T4 1.02 (0.76-1.46), 12/2015: TSH 1.970 (0.358-3.740 uIU/mL), free T4 1.15 (0.76-1.46 ng/dL), 01/2018: TSH 1.735 (0.35-5.5), 12/2018: TSH 1.137 (0.35-5.5), 05/2019: TSH 2.293 (0.35-5.5), 01/2020: TSH 1.754 (0.35-5.5), free T4 1.2 (0.9-1.5), 01/2021: TSH 1.9 (0.27-4.2 uIU/mL), free T4 1.2 (0.9-1.7), 12/2021: TSH 3.41 (0.27-4.2 uIU/mL), free T4 1.1 (0.9-1.7), 07/2023: TSH 2.35 (0.27-4.2 uIU/mL), Renal Function Testin08/2013: creatinine 0.7, 12/2015: creatinine 0.69 mg/dL, eGFR >60,), 05/2018: Creatinine 0.72, 01/2019: Creatinine 0.86, 07/2019: Creatinine 0.73, 07/2020: Creatinine 0.65, 10/2020: Creatinine 0.64, 01/2021: Creatinine 0.81, 03/2021: Creatinine 0.73, 12/2021: Creatinine 0.64, 12/2022: Creatinine 0.78, 03/2023: Creatinine 0.83, 08/2023: Creatinine 1.13 eGFR 90, 10/2023: Creatinine 1.04, 03/2024: Creatinine 1.37 eGFR 71 Urine for Microalbumin:10/2013: Microalbumin:Creatinine ratio ok,12/2015: microalbumin : creatinine ratio ok, 08/2017: Microalbumin:Creatinine Ratio ok, 10/2018: Microalbumin:Creatinine Ratio 535, 01/03/2020: Microalbumin:Creatinine Ratio 650, 01/2021: Microalbumin:Creatinine Ratio 361. Improved but above goal. Jay states he has used lisinopril in the past but this increased his potassium too much and it was discontinued. He will inquire further with his CF providers about losartan. I advised him to make an appointment with nephrology as we had previously discussed., 03/19/2021: Microalbumin:Creatinine Ratio 1220, 08/2021: still hasn't made appointment with kidney specialist, stressed the importance of this to prevent further kidney damage., 10/2022: prot/creat ratio in [facility], making appointment with nephrology, 07/2023: prot/creat ratio in [facility] Lipid Profile:10/2013: TC 111, HDL 42, LDL 56, TG 56, 12/2015: TC 122, HDL 52, LDL 60, TG 49, 10/2018: TC 160, HDL 72, LDL 71, TG 83, 01/03/2020: TC 253 HDL 133 LDL 112 TG 38, 01/2021: TC 179 HDL 115 LDL 54 TG 51, 03/2021: TC 233 HDL 143 LDL 84 TG 32 Liver Profile:08/2013: AST 93, ALT 65, Alkaline Phosphatase 811, 12/2015: AST 110 (9-37 U/L), ALT 164 (12-78 U/L), alkaline phosphatase 807 (46-116 U/L), Bilirubin, total 1.3 (0.2-1.0, mg/dL, 05/2018: results in care everywhere, 12/2019: results in care everywhere, 01/2020: labs in [facility], 07/2020; Alkaline Phosphatase 725 (45-117), ALT 77 (16-61), AST 163 (15-37), 12/2020: results in care everywhere., 03/2021: results In care everywhere, 12/2021: Alkaline Phosphatase 918 (38-113), bone percent 13.9%, liver percent 86.1 , 12/2022: liver function monitored by CF providers, 03/2023: in [facility], 08/2023: LFTS in [facility], 10/2023: LFTS in [facility], 03/2024: liver test in [facility] Dilated Eye Exam: Patient educated to have ophthalmology visits at least once a year. 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 08/2013: New patient visit for Cystic Fibrosis related Diabetes Previous diabetes related labs from [facility] and [facility]-everywhere systems reviewed prior to today's office visit. Any changes made at our last diabetes management visit were abstracted accordingly (if applicable). Today's Office Visit: Jaydon Dennis: reminded patient to make appointment with for osteoporosis. Nephrology: had out patient visit in August per patient. Hepatology: seen last hospital admission in July per patient. Hematology: had appointment per patient. Lipids: advised to discuss with CF providers, may not be able to treat with high liver enzymes. Endocrinology: we manage patients CFRD only. self monitoring blood glucose data : see dexcom report. Average 14 day SG 186 predicted gmi 7.8%, 52% TIR 2% low range. Diet: can be high in carbs per patient due to CF diet to gain weight per patient.. Exercise: minimal History of hypoglycemia unawareness,-using dexcom now. Likes the g7 Insulin pump: not interested at this time until its approved with g7. Glucagon kit: has baqsimi. Your new insulin regimen: Long acting insulin: Insulin used for this is called: Basaglar Bedtime dose 8 units Rapid acting /mealtime insulin: Insulin used for this is called: Humalog or Novolog insulin unit:grams of carb ratio Meal time dosin:20 with larger amounts of c (more content not included)... [facility] 03-01-2024 Miscellaneous Notes Scheduling arranged appt at [facility] for tomorrow afternoon. Patient is aware. Received call from [facility] at [facility] requesting an apointment for PICC line removal with one of [facility] general surgeons. Patient has been scheduled on 03/26/[address] Gotti and placed on wait list. Please notify patient if he is scheduled with the incorrect provider for the removal. Patient called and stated his PICC Line has stopped flushing as of last night and wanted to know what to do about it? Should he go to [facility] to have it removed? Call back [phone] documented in this encounter [facility] 02-25-2024 History of Presen t illness Narrative Images from the original note were not included. PULMONARY MEDICINE CYSTIC FIBROSIS FOLLOW UP February 25, 2024 Patient Name: Jay Barber PRIMARY CARE PHYSICIAN: No primary care provider on file. Portions of this note were taken from the note dated 11/12/23 ASSESSMENT AND PLAN: Jay Barber is a 28 year old male, here for follow-up of Cystic Fibrosis (CHIEF COMPLAINT). Was admitted 02/02- for CFPEx complicated by upper GI bleed requiring MICU admit, and EGD with 2 duodenal ulcers clipped and injected with epi. He was DCed home in IV meropenem and vancomycin via PICC line. Creatinine has increased from 1.26 to 1.6 over the last week. 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 but I expect it to take weeks to months (6-9 weeks) to be back at your baseline -because of your kidney function, go ahead and stop the antibiotics (as ID mentioned) -do take the IVFs when you have them -get labs on Friday Acute kidney injury -I anticipate you'll need to get labs weekly for a while Leg swelling (resolved) -you can stop the 2nd daily dose of Bumex (I.e. only take it in the morning) Lets have you be seen in 4 weeks, but we will be communicating electronically at least weekly Follow up visit in 4 weeks 1. CYSTIC FIBROSIS PULMONARY DISEASE AND BRONCHIECTASIS Pulmonary symptoms near recent baseline, with minimal congestion and cough. Marked fatigue. FEV1% predicted today: 27% (0.85L) - was 27% (0.87L) 02/12/24; 29% (0.92L) 11/12/23; was 33% (1.03L ) 09/24/23; 1.15L 07/02/23 (but all better than baseline over the previous year) Complicated by chronic respiratory tract infection with PsA, Burkholderia vietnamiensis (sent to [facility] in 2019), MRSA Chronic maintenance regimen: CFTR modulators: Trikafta - on adjusted dosing due to Cirrhosis - reports taking 2 orange pills on even days of the month and 1 orange pill on odd days of the month, No blue pills Pulmozyme: once daily Hypertonic saline: has at home but not currently using Chronic Azithromycin (anti-inflammatory): No (on hold due to prior NTM) Inhaled Abx: Cayston Ibuprofen: No Nebulized short-acting bronchodilator: albuterol as needed Nebulized other: PEP device: has acapella VEST: not currently using unless ill ICS: Advair 500/50mg 2 puffs BID Oral prednisone: as needed, not currently on Pulm rehab: not currently using Supplemental oxygen use: no Exercise and minutes per week: brisk walking/ lifting, 2 hrs per week Recommended ORDER OF AIRWAY CLEARANCE: Albuterol, Hypertonic, VEST (with hypertonic), pulmozyme, Inhaled antibiotics, Inhaled corticosteroids ADVANCED LUNG DISEASE (criteria: FEV1 < 40) and CHRONIC HYPOXEMIC RESPIRATORY FAILURE ---Supplemental oxygen: no ---BIPAP: no ---Pulmonary rehab: no ---ECHO: 07/04/23- EF 59%, RV size and function normal ---Weight: BMI of 15.5 - 87lbs ---Discussed lung transplantation: yes, while doubts he will do, he is willing to pursue eval Lung and liver discussed extensively with patient during July 2023 hospital admission - pt eventually deferred at hospital discharge ---Referred for lung transplantation: has agreed to start insurance verification, etc. CHRONIC RESPIRATORY TRACT PSEUDOMONAS AND BURKHOLDERIA ([place]iensis) ---Mucoid phenotype ---Inhaled antibiotic: previously used cayston montly alternating with MUKESH podhaler - not currently doing, but started Cayston in December 2022. Does have the altera device --> not doing it consistently ---Not on chronic azithromycin due to NTM ---Oral antibiotic that patient responds to: Cipro and Bactrim ---IV abx that patient responds to: IV TOBRAMYCIN, meropenem, vancomycin CYSTIC FIBROSIS PANCREATIC INSUFFICIENCY ---No generic enzymes, ever. ---Creon 36,000, 3-4 BEFORE meals AND 2-3 BEFORE snacks ---Fat soluble supplemental vitamins: Vitamin K 40 mcg daily ---CF Vitamins: MVI 2 daily ---Vitamin D2 50,000 weekly CYSTIC FIBROSIS LIVER DISEASE --- cirrhosis complicated by esophageal varices, portal hypertension --- Actigall restarted during last hospitalization - 300mg BID --- last RUQ US in 07/2023 --- last EGD 07/2023 --- needs hepatology follow-up --- currently off diuretics CHRONIC PANSINUSITIS Sinuses can be a reservoir of bacterial infection and contribute to recurrent lower respiratory tract infections, especially in patients infected with Pseudomonas Symptoms are worse Nasal polyps - unknown? ---Antihistamine: zyrtec ---Nasal steroid: flonase ---Montelukast: added but discussed possible changes with mood ---If not improving with restart sinus medications - will obtain CT sinus and referral to ENT - would like to hold off on this for now given most likely related to change in weather ---Referral to ENT for surgical eval. Appt [phone]. Severe protein calorie malnutrition - continue ensures Prior Invasive Pulmonary Aspergillus infection/Trichosporonosis - treated with voriconazole by ID cosmetic consultant Dr. Burke France in 2019 for 1 year Depression/Anxiety ---continues on celexa 20 mg PO daily - refilled 11/20/2022 and restarted ---needs social work HTN ---on Coreg 25mg BID (increased during 01/2024 admission 2o cirrhosis and portal htn) Proteinuria --- previously seen by Dr. Ahuja in nephrology ---acute kidney injury 2o recent illness, IV antibx -home IV fluids over the next day -dc'ed IV antibiotics today 02/25/24 -recheck labs Monday 02/26 CYSTIC FIBROSIS RELATED DIABETES ---The standard medical therapy for CFRD is subcutaneous insulin ---Patient currently on insulin therapy ---Self monitored blood glucose 3 times per day ---Patient has a CGM: yes - screening and monitoring ---Most recent hgA1c noted. 6.3 02/03/24 ---Had ophthalmology retinal exam: needs to be done ---Urine albumin/creatinine ratio done: ordered ---Following with Dr. Francis Ramirez at [facility] Vitamin D 25 Hydroxy (ng/mL) Date Value 02/27/2024 32.4 Hemoglobin A1C Date Value Ref Range Status 02/03/2024 6.3 (H) 4.3 - 5.6 % Final Comment: [place] [employer] guidelines indicate that patients with HgbA1c in the range 5.7-6.4% are at increased risk for development of diabetes, and intervention by lifestyle modification may be beneficial. HgbA1c greater or equal to 6.5% is considered diagnostic of diabetes. 07/03/2023 6.9 (H) 4.3 - 5.6 % Final Comment: [place] [employer] guidelines indicate that patients with HgbA1c in the range 5.7-6.4% are at increased risk for development of diabetes, and intervention by lifestyle modification may be beneficial. HgbA1c greater or equal to 6.5% is considered diagnostic of diabetes. 03/08/2023 7.7 (H) 4.3 - 5.6 % Final Comment: [place] [employer] guidelines indicate that patients with HgbA1c in the range 5.7-6.4% are at increased risk for development of diabetes, and intervention by lifestyle modification may be beneficial. HgbA1c greater or equal to 6.5% is considered diagnostic of diabetes. Hemoglobin A1C (POCT) Date Value Ref Range Status 03/09/2024 6.1 (A) 4.3 - 5.6 % Final Comment: Location:[facility], [facility] [address], [place], Critical access hospital Point of care (POC) Hemoglobin A1c (HGBA1C) testing is intended to assess glucose control and provide a management tool for patients known to have diabetes and their healthcare providers. Target HGBA1C levels may depend on specific clinical circumstances. POC HGBA1C is not intended for use as a diagnostic or screening test; laboratory-based testing should be used for diagnostic purposes. The following information is supplemental and may not be applicable to specific diabetes management situations: The POC device forder operator provides a normal range of 4.2% to 6.5% for the HGBA1C POC test. However, the [place] [employer] guidelines indicate that patients with HGBA1C in the range of 5.7% to 6.4% are at increased risk for development of diabetes and that intervention by lifestyle modification may be beneficial. A HGBA1C level greater than or equal to 6.5% is considered diagnostic of diabetes, pending confirmatory testing. Use of HGBA1C testing to evaluate glucose control may not be appropriate for patients with hemoglobin variants or other conditions (e.g. anemia) that alter red blood cell lifespan. 11/20/2023 6.4 4.2 - 5.6 % Final Comment: Location:[facility] [address], [place], Critical access hospital Point of care (POC) Hemoglobin A1c (HGBA1C) testing is intended to assess glucose control and provide a management tool for patients known to have diabetes and their healthcare providers. Target HGBA1C levels may depend on specific clinical circumstances. POC HGBA1C is not intended for use as a diagnostic or screening test; laboratory-based testing should be used for diagnostic purposes. The following information is supplemental and may not be applicable to specific diabetes management situations: The POC device forder operator provides a normal range of 4.2% to 6.5% for the HGBA1C POC test. However, the [place] [employer] guidelines indicate that patients with HGBA1C in the range of 5.7% to 6.4% are at increased risk for development of diabetes and that intervention by lifestyle modification may be beneficial. A HGBA1C level greater than or equal to 6.5% is considered diagnostic of diabetes, pending confirmatory testing. Use of HGBA1C testing to evaluate glucose control may not be appropriate for patients with hemoglobin variants or other conditions (e.g. anemia) that alter red blood cell lifespan. ANNUAL SCREENING: ANNUAL LABS: 07/2023 OGTT: NA - CFRD EYE EXAM TO CHECK FOR CATARACTS: DEXA: Completed on 09/24/23 -> Lowest T-score is 3.1 in left femoral neck T/Z = < -2.0 - every 1 year LIVER US/Fibroscan: had RUQ US in the hospital - cirrhotic liver - needs hepatology follow-up COLONOSCOPY: Start screening at age 40 years (re-screen every 5 years) in CF due to increased risk of GI carcinoma: INTERESTED IN RESEARCH: YES Was the patient screened for barriers to adherence using the Daily Care Check-In? NO RD ANNUAL VISIT Needed: Completed on 07/02/23 RT ANNUAL VISIT Needed: Completed on 03/19/23 SW ANNUAL VISIT Needed: Completed on 07/02/23 Mental health screen: NEEDS CHIEF COMPLAINT: Cystic Fibrosis HISTORY OF PRESENT ILLNESS: Jay Barber is a 28 year old male, here for follow-up of Cystic Fibrosis INTERVAL HISTORY Courses of oral abx since last visit:1 Courses of IV abx since last visit:0 Prednisone use since last visit: 0 ED visits since last visit: 0 Hospitalizations since last visit: 0 [place]/Phone Messages since last visit: Exacerbations in the last 12 months: -Hospital Admit: 07/02/23-07/29/23 treated with Vancomycin through 07/06, Minocycline through 07/22, and Meropenum through 07/24 (not discharged home on any IV abx) -Hospital Admit: 03/07/23-03/11/23 -> discharged on Home IV abx Vanc and Larisa through 04/01/23 Immunization History Administered Date(s) Administered COVID-19 original vaccine, age 12+ yr, monovalent ([employer] - PURPLE TOP) 12/24/2020 01/21/2021 12/05/2021 COVID-19 vaccine, age 12+ yr, bivalent ([employer]-B[employer]) 12/04/2022 Haemophilus influenzae b (HbOC) vaccine, 4-dose series (HIBTITER) 1993 01/11/1994 05/20/1994 02/13/1995 Haemophilus influenzae b (Hib PRP-T) vaccine, 4-dose series (ACTHIB, HIBERIX) 07/16/1995 diphtheria tetanus pertussis (DTP) vaccine 1993 01/11/1994 05/20/1994 02/13/1995 07/16/1995 07/18/1999 hepatitis B (HepB) vaccine, 3-dose series, age 0 yr - 19 yr (ENGERIX B-PEDS, RECOMBIVAX HB-PEDS) 1993 1993 05/20/1994 influenza (IIV3) vaccine, trivalent (AFLURIA, FLULAVAL, FLUVIRIN, FLUZONE) 10/23/2011 09/13/2013 11/05/2018 influenza (IIV4) vaccine, age 6 mo - 64 yr, quadrivalent (AFLURIA, FLULAVAL, FLUZONE) 12/04/2022 influenza (IIV4) vaccine, age 6 mo - 64 yr, quadrivalent, PF (AFLURIA, FLUARIX, FLULAVAL, FLUZONE) 09/02/2016 10/11/2019 influenza (IIV4) vaccine, quadrivalent (AFLURIA, FLULAVAL, FLUZONE) 11/05/2018 influenza vaccine, whole virus 10/03/2010 measles mumps rubella (MMR) vaccine (M-M-R II, PRIORIX) 02/13/1995 06/13/1999 meningococcal (MenACWY-D) vaccine, quadrivalent (MENACTRA) 05/27/2012 meningococcal (MenACYW) vaccine, quadrivalent, unspecified formulation 05/27/2012 novel influenza (R9H2-62) vaccine, PF 10/19/2009 pneumococcal (PCV7) vaccine, 7 valent (PREVNAR 7) 01/08/2006 pneumococcal conjugate (PCV13) vaccine, 13 valent (PREVNAR 13) 05/26/2019 pneumococcal polysaccharide (PPV23) vaccine, 23 valent (PNEUMOVAX 23) 10/23/2011 07/28/2019 poliovirus (IPV) vaccine, inactivated (IPOL) 1993 01/11/1994 05/20/1994 02/13/1995 tetanus diphtheria pertussis (Tdap) vaccine, age 7+ yr (ADACEL, BOOSTRIX) 05/29/2012 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) History of transfusion Hypertension Liver disease care home (current) use of insulin (HCC) Transfusion history Type 1 diabetes mellitus with hyperglycemia (HCC) PAST SURGICAL HISTORY Procedure Laterality Date PAST SURGICAL HISTORY OF splenal renal shunt to treat portal hypertension PICC LINE INSERT/CONSULT 03/08/2023 PICC LINE INSERT/CONSULT 02/03/2024 FAMILY HISTORY Problem Relation Age of Onset Hypertension Mother Breast Cancer Other other (hypercholesterolemia) Other other (heart disease in female family member before age 65) Other Social History Tobacco Use Smoking status: Never Smokeless tobacco: Never Vaping Use Vaping Use: Never used Substance Use Topics Alcohol use: No Drug use: No ALLERGIES: ALLERGIES Allergen Reactions Vancomycin Itching, Rash Gets Red Man syndrome and pt if not premedicated with benadryl prior to Vancomycin infusions. Cefoxitin Rash, Other: See Comments Severe abdominal pain, diarrhea, rash Severe Abdominal Pains Linezolid Rash, GI Upset CURRENT OUTPATIENT MEDICATIONS: polyethylene glycol 3350 17 gram packet Take 1 Packet by mouth once daily as needed. Dissolve dose in 4 - 8 ounces of liquid and take as directed. pantoprazole DR (PROTONIX) 40 mg tablet Take 1 tablet by mouth two times a day before meals at 6 am and 4 pm. Insulin Calvin, Disposable, (BD YARON 2ND GEN PEN NEEDLE) 32 gauge x /32 5x/day zinc sulfate 220 mg capsule Take 1 capsule by mouth once daily for 2 weeks and 2 capsules per week thereafter vitamin A (AQUASOL A) 10,000 unit capsule Take 1 capsule by mouth once daily. (Patient not taking: Reported on 04/07/2024) cholecalciferol, Vitamin D3, (VITAMIN D3) 1,250 mcg (50,000 unit) cap capsule Take 1 capsule by mouth two times a week. PRESERVISION AREDS-2 250-90-40-1 mg take 1 capsule by mouth twice a day with food (Patient not taking: Reported on 04/07/2024) CREON 36,000-114,000- 180,000 unit delayed release capsule Take 3 capsules by mouth three times a day with meals. 3 with snacks dornase christi (PULMOZYME) 1 mg/mL nebulizer solution Inhale 2.5 mL as instructed once daily. elexacaftor 100 mg-tezacaftor 50 mg-ivacaftor 75 mg(d)/ivacaftor 150 mg(n) tablets (TRIKAFTA) Alternate between 2(starting 07/30) and 1 tablet every morning , hold evening dose ipratropium-albuterol (DUONEB) 0.5 mg-3 mg(2.5 mg base)/3 mL nebu Inhale 3 mL as instructed every 4 hours as needed for wheezing/shortness of breath. Blood-Glucose Meter monitoring kit For monitoring sugars 3x/day albuterol HFA (VENTOLIN HFA) 90 mcg/actuation inhaler inhale 2 puffs by mouth as directed every 4 hours if needed for wheezing or shortness of breath VITAMIN D2 1,250 mcg (50,000 unit) capsule Take 1 capsule by mouth two times a week. Blood-Glucose Meter,Continuous (DEXCOM G7 CODER OPERATOR) [facility] For monitoring sugars glucagon (BAQSIMI) 3 mg/actuation nasal spray Use 1 Calvin in the nose as needed. May repeat after 15 minutes using a new device if there is no response for severe low blood sugar event aztreonam lysine (CAYSTON) 75 mg/mL nebulizer solution Inhale 1 mL as instructed three times daily. 28 days on 28 days off Send altera nebulizer with each shipment Nebulizers 1 Each three times daily. cetirizine (ZYRTEC) 5 mg tablet Take 10 mg by mouth once daily. Nebulizers 1 Each three times daily. fluticasone-salmeterol (ADVAIR DISKUS) 500-50 mcg/dose dsdv Inhale 1 Puff as instructed two times a day. ursodiol (ACTIGALL) 300 mg capsule Take 1 capsule by mouth two times a day. bumetanide (BUMEX) 1 mg tablet Take 1 tablet by mouth once daily. (Patient not taking: Reported on 04/07/2024) carvedilol (COREG) 25 mg tablet Take 1 tablet by mouth two times a day with meals. insulin glargine (LANTUS SOLOSTAR U-100 INSULIN) 100 unit/mL (3 mL) inject 11 units subcutaneously at bedtime Lancets Use as instructed 3x/day blood sugar diagnostic (BLOOD GLUCOSE TEST) test strip 3x/day insulin lispro (HUMALOG KWIKPEN INSULIN) 100 unit/mL Dose varies units with meals and sliding scale, using about 30 total units a day Blood-Glucose Sensor (DEXCOM G7 SENSOR) jean-paul use as directed and REPLACE every 10 days tranexamic acid (LYSTEDA) 650 mg tablet Take 2 tablets by mouth three times a day for 5 days. Vit A,C,B-Jxni-Xjnavv (PRESERVISION AREDS) 4,296 mcg-226 mg-90 mg cap Take 1 capsule by mouth twice daily. Take with food. montelukast (SINGULAIR) 10 mg tablet Take 1 tablet by mouth daily at bedtime. REVIEW OF SYSTEMS REVIEW OF SYSTEMS GENERAL: No weight loss, malaise or fevers, appetite and energy improving, but still below baseline. HERNÁNDEZ /winded after ADLs (making bed, grooming. HEENT: no sinus drainage or congestion. No hemoptysis RESPIRATORY: non productive cough (rare), CARDIOVASCULAR: no orthopnea or CP. Pedal edema resolved GI: No nausea, vomiting, or diarrhea and no melena PSYCH: Negative for sleep disturbance, mood disorder and recent psychosocial stressors ENDOCRINE: Negative for cold or heat intolerance, polyuria, polydipsia and goiter 10/2023 REVIEW OF SYSTEMS PAIN ASSESSMENT: Negative for pain, history of chronic pain, or current treatment for a chronic pain condition. GENERAL: No weight loss, malaise or fevers HEENT: Negative for frequent or significant headaches, SEE HPI NECK: Negative for lumps, goiter, pain and significant neck swelling RESPIRATORY: See HPI CARDIOVASCULAR: Negative for chest pain, leg swelling, hypertension, CHF or palpitations GI: No nausea, vomiting, or diarrhea SKIN: Negative for lesions, rash, and itching PSYCH: Negative for sleep disturbance, mood disorder and recent psychosocial stressors ENDOCRINE: Negative for cold or heat intolerance, polyuria, polydipsia and goiter PHYSICAL EXAMINATION: VITAL SIGNS: BP 126/80 Pulse 84 Temp (Src) 98.5 (Temporal) Ht 5' 2.01 (1.58m) Wt 89 lb 1.1 oz (40.4kg) SpO2 95% BMI 16.29 kg/(m^2). PHYSICAL EXAMINATION: General appearance: Well appearing, alert, in no acute distress, well-hydrated, well nourished. Skin: Skin color, texture, turgor normal, no suspicious rashes or lesions Head: Normocephalic, no masses, lesions, tenderness or abnormalities Eyes: Anicteric sclera. Pupils are equally round and reactive to light. Extraocular movements are intact. Ears: External ears normal, canals clear Nose/Sinuses: patent, no DC Oropharynx: Lips, mucosa, and tongue normal, teeth and gums normal, oropharynx normal Neck: Supple, no adenopathy; thyroid symmetric, normal size, no bruits Back: Normal exam Lungs: no rales, ro rhonchi. Prolonged expirations. Heart: mild tachycardia, no murmur Abdomen: soft. No caput medusa Extremities: 1+ clubbing. No pedal edema. PICC R arm Musculoskeletal: No joint swelling, deformity, or tenderness Peripheral pulses: Normal Neuro: Gait normal. Reflexes normal and symmetric. Sensation grossly intact. DATA: Diagnostic tests reviewed for today's visit were personally reviewed by me: Sputum culture results and Most recent labs LAST LAB RESULTS: ---Reviewed in [facility] CBC with diff: WBC 4.0 02/24/2024 RBC 2.63 02/16/2024 Hemoglobin 7.5 02/24/2024 Hematocrit 23.1 02/24/2024 MCV 93.2 02/16/2024 MCH 30.8 02/16/2024 MCHC 33.1 02/16/2024 RDW-CV 15.9 02/16/2024 Platelet Count 225 02/24/2024 MPV 10.5 02/16/2024 Neutrophils % 45.4 02/24/2024 Lymph% 23.1 02/12/2024 [place]% 8.8 02/12/2024 Eosinophils % 12.1 02/24/2024 Baso% 1.5 02/12/2024 Abs Neut (Segs + Bands) 1.8 02/24/2024 Abs [place] 0.53 02/12/2024 Abs Eosin 0.41 02/12/2024 Abs Baso 0.09 02/12/2024 Glucose (mg/dL) Date Value 03/25/2024 230 12/08/2015 113 Potassium Date Value 03/25/2024 5.6 mmol/L 02/24/2024 4.9 Sodium Date Value 03/25/2024 134 mmol/L 12/08/2015 139 mEq/L Chloride Date Value 03/25/2024 110 mmol/L 12/08/2015 102 mEq/L CO2 Date Value 03/25/2024 22 mmol/L 12/08/2015 31 mEq/L Creatinine Date Value 03/25/2024 1.02 mg/dL 02/24/2024 1.60 MG/DL BUN (mg/dL) Date Value 03/25/2024 28 12/08/2015 16 Anion Gap Date Value 03/25/2024 2 mmol/L 12/08/2015 11 Calcium (mg/dL) Date Value 12/08/2015 9.3 Calcium, Total (mg/dL) Date Value 03/25/2024 8.6 Protein, Total (g/dL) Date Value 03/17/2024 8.0 12/08/2015 9.5 Albumin (g/dL) Date Value 03/17/2024 2.9 12/08/2015 3.4 Bilirubin, Total Date Value 03/17/2024 1.0 mg/dL 02/24/2024 0.70 Alkaline Phosphatase Date Value 03/17/2024 685 U/L 02/24/2024 915 AST Date Value 03/17/2024 70 U/L 02/24/2024 163 ALT Date Value 03/17/2024 51 U/L 02/24/2024 96 Vitamin D 25 Hydroxy (ng/mL) Date Value 02/27/2024 32.4 ] Hemoglobin A1C (POCT) Date Value Ref Range Status 03/09/2024 6.1 (A) 4.3 - 5.6 % Final Comment: Location:[facility], [address] [place] [address], Critical access hospital Point of care (POC) Hemoglobin A1c (HGBA1C) testing is intended to assess glucose control and provide a management tool for patients known to have diabetes and their healthcare providers. Target HGBA1C levels may depend on specific clinical circumstances. POC HGBA1C is not intended for use as a diagnostic or screening test; laboratory-based testing should be used for diagnostic purposes. The following information is supplemental and may not be applicable to specific diabetes management situations: The POC device forder operator provides a normal range of 4.2% to 6.5% for the HGBA1C POC test. However, the [place] [employer] guidelines indicate that patients with HGBA1C in the range of 5.7% to 6.4% are at increased risk for development of diabetes and that intervention by lifestyle modification may be beneficial. A HGBA1C level greater than or equal to 6.5% is considered diagnostic of diabetes, pending confirmatory testing. Use of HGBA1C testing to evaluate glucose control may not be appropriate for patients with hemoglobin variants or other conditions (e.g. anemia) that alter red blood cell lifespan. SPIROMETRY: Reviewed in [facility] ID: [id number] Name: JAY BARBER Race: White Ht: 62.01 in Wt: 89.07 lbs Age: 28 Gender: Male : 1995 Dx: Cystic fibrosis with pulmonary manifestations Smoking Hx: Non-smoker Doctor: ALEX PINON Test Date: 02/25/2024 Site: [facility]: Padma Helm PRE-BRONCH POST-BRONCH Pre LLN Pred ULN %Pred Post %Pred %Chg SPIROMETRY FVC (L) 2.43 2.84 3.65 4.47 66 FEV1 (L) 0.85 2.43 3.13 3.79 27 FEV1/FVC 0.35 0.75 0.86 0.94 40 PEF L/s (L/sec) 3.77 6.74 8.56 10.38 44 FEF50 (L/sec) 0.28 1.99 4.11 6.24 6 FIF50 (L/sec) 2.74 FEF50/FIF50 0.10 90-100 FIVC (L) 2.25 QUC13-03 (L/sec) 0.23 2.29 3.70 5.44 6 Time (sec) 14.69 FET PEF (sec) 0.04 MACIEL (L) 0.03 Vol Extrap % (%) 1 SPIROMETRY BASELINE ONLY - ordered on 02/25/2024 ID: [id number] Name: JAY BARBER Race: White Ht: 62.01 in Wt: 99.21 lbs Age: 28 Gender: Male : 1995 Dx: Cystic fibrosis_ Smoking Hx: Non-smoker Doctor: ALEX PINON Test Date: 02/12/2024 Site: Tech: Marianna Landeros PRE-BRONCH POST-BRONCH Pre LLN Pred ULN %Pred Post %Pred %Chg SPIROMETRY FVC (L) 2.46 2.84 3.65 4.47 67 FEV1 (L) 0.87 2.43 3.13 3.79 27 FEV1/FVC 0.35 0.75 0.86 0.94 41 PEF L/s (L/sec) 3.83 6.74 8.56 10.38 44 FEF50 (L/sec) 0.26 1.99 4.11 6.24 6 FIF50 (L/sec) 2.81 FEF50/FIF50 0.09 90-100 FIVC (L) 2.27 UFR30-04 (L/sec) 0.22 2.29 3.70 5.44 5 Time (sec) 15.19 FET PEF (sec) 0.04 MACIEL (L) 0.03 Vol Extrap % (%) 1 SPIROMETRY BASELINE ONLY ([id number]) - ordered on 11/12/23 ID: [id number] Name: JAY BARBER Race: White Ht: 62.01 in Wt: 89.00 lbs Age: 28 Gender: Male : 1995 Dx: Cystic fibrosis with pulmonary manifestations Smoking Hx: Non-smoker Doctor: SHE PETE Test Date: 11/12/2023 Site: Tech: Orquidea Bella PRE-BRONCH POST-BRONCH Pre LLN Pred ULN %Pred Post %Pred %Chg SPIROMETRY FVC (L) 2.60 2.84 3.65 4.47 71 FEV1 (L) 0.92 2.43 3.13 3.79 29 FEV1/FVC 0.35 0.75 0.86 0.94 41 PEF L/s (L/sec) 3.88 6.74 8.56 10.37 45 FEF50 (L/sec) 0.28 2.00 4.12 6.25 6 FIF50 (L/sec) 2.61 FEF50/FIF50 0.11 90-100 FIVC (L) 2.20 WNP77-65 (L/sec) 0.24 2.30 3.71 5.45 6 Time (sec) 14.86 FET PEF (sec) 0.04 MACIEL (L) 0.04 Vol Extrap % (%) 2 SPIROMETRY BASELINE ONLY ([id number]) - ordered on 09/24/23 ID: [id number] Name: JAY BARBER Race: White Ht: 62.01 in Wt: 87.52 lbs Age: 28 Gender: Male : 1995 Dx: Cystic fibrosis_ Smoking Hx: Non-smoker Doctor: JEAN PIERRE KILGORE Test Date: 09/24/2023 [facility] Tech: Padma Helm PRE-BRONCH POST-BRONCH Pre LLN Pred ULN %Pred Post %Pred %Chg SPIROMETRY FVC (L) 2.71 2.84 3.65 4.47 74 FEV1 (L) 1.03 2.44 3.13 3.80 33 FEV1/FVC 0.38 0.75 0.86 0.94 44 PEF L/s (L/sec) 4.03 6.74 8.56 10.37 47 FEF50 (L/sec) 0.36 2.00 4.13 6.25 8 FIF50 (L/sec) 2.47 FEF50/FIF50 0.15 90-100 FIVC (L) 2.43 ABQ89-15 (L/sec) 0.29 2.30 3.71 5.46 7 Time (sec) 14.96 FET PEF (sec) 0.04 MACIEL (L) 0.03 Vol Extrap % (%) 1 SPIROMETRY BASELINE ONLY ([id number]) - ordered on 07/02/23 ID: [id number] Name: JAY BARBER Race: White Ht: 62.01 in Wt: 86.86 lbs Age: 28 Gender: Male : 1995 Dx: Cystic fibrosis_ Smoking Hx: Non-smoker Doctor: NABOR MAS Test Date: 07/24/2023 Site: Tech: Alicia Coello PRE-BRONCH POST-BRONCH Pre LLN Pred ULN %Pred Post %Pred %Chg SPIROMETRY FVC (L) 2.79 2.85 3.65 4.47 76 FEV1 (L) 1.15 2.44 3.14 3.80 36 FEV1/FVC 0.41 0.75 0.86 0.95 48 PEF L/s (L/sec) 4.29 6.74 8.56 10.37 50 FEF50 (L/sec) 0.40 2.01 4.13 6.26 9 FIF50 (L/sec) 3.24 FEF50/FIF50 0.12 90-100 FIVC (L) 2.30 MAK57-40 (L/sec) 0.31 2.31 3.72 5.47 8 Time (sec) 15.62 FET PEF (sec) 0.05 MACIEL (L) 0.04 Vol Extrap % (%) 1 MICROBIOLOGY: Reviewed MICROBIOLOGY [facility] 2022 07/27/2022 10/22/2022 11/05/2022 11/06/2022 03/05/2023 06/04/2023 07/03/2023 07/04/2023 07/09/2023 11/12/2023 02/03/2024 02/04/2024 Culture Moderate Pseudomonas aeruginosa ! Few Staphylococcus aureus ! Moderate Burkholderia cepacia complex ! Moderate Methicillin resistant Staphylococcus aureus ! Few Burkholderia cepacia complex ! Few Burkholderia cepacia complex ! Moderate Burkholderia cepacia complex ! (C) Few Burkholderia cepacia complex ! No growth 5 days Negative for anaerobes. Rare Methicillin resistant Staphylococcus aureus ! Few Methicillin resistant Staphylococcus aureus ! No growth 5 days Culture Few Methicillin resistant Staphylococcus aureus ! No growth 5 days Moderate normal respiratory vicky ! Few Burkholderia cepacia complex ! Few Staphylococcus aureus ! Many normal respiratory vicky ! Few Methicillin resistant Staphylococcus aureus ! Moderate Methicillin resistant Staphylococcus aureus ! No growth 5 days No growth Moderate normal respiratory vicky ! Few Burkholderia cepacia complex ! No growth (<1,000 CFU/ml) Culture Few Burkholderia vietnamiensis ! No growth 5 days One colony Js albicans ! No Fungus isolated after 28 days Few normal respiratory vicky ! Moderate normal respiratory vicky ! No Fungus isolated after 28 days Many normal respiratory vicky ! No growth 5 days Culture Many normal respiratory vicky ! Few Methicillin resistant Staphylococcus aureus ! No Acid Fast Bacilli isolated after 42 days No Acid Fast Bacilli isolated after 42 days No Acid Fast Bacilli isolated after 42 days No Acid Fast Bacilli isolated after 42 days One colony Js albicans ! (P) Culture Rare Js albicans ! Few normal respiratory vicky ! Mycobacterium chelonae group ! (P) Culture No Acid Fast Bacilli isolated after 42 days Few Burkholderia cepacia complex ! Culture Rare Pseudomonas aeruginosa ! Culture Rare Js albicans ! Culture No Acid Fast Bacilli isolated after 42 days Smear Result No acid fast bacilli seen by flurochrome stain Few Mixed oral vicky ! No acid fast bacilli seen by flurochrome stain No acid fast bacilli seen by flurochrome stain No acid fast bacilli seen by flurochrome stain No acid fast bacilli seen by flurochrome stain No organisms seen No acid fast bacilli seen by flurochrome stain (P) Smear Result Few Polymorphonuclear leukocytes ! Rare Polymorphonuclear leukocytes Smear Result Rare Epithelial cells ! Gram stain performed on cytospun specimen. Smear Result No acid fast bacilli seen by flurochrome stain Gram stain from primary specimen Legend: ! Abnormal (P) Preliminary (C) Corrected Written and verbal health teaching given to patient, patient verbalizes understanding and agrees with treatment plan. Return to clinic at [facility] in 4 weeks, with spirometry (spirometry baseline). I spent a total of 85 minutes on the date of the service which included preparing to see the patient, [id number] patient care, completing clinical documentation, performing a medically appropriate examination, and counseling and educating the patient/family/caregiver. Electronically Signed: Jean Pierre Kilgore MD, FRANCI, FACP [facility] Respiratory [place] [facility] Adult CF Patients [phone]. Adult patients use option [facility]2 Bronchiectasis (Non-CF) Patients [phone] Lump Room Supervisor: Nell LinoBasliio Marta [phone] Email: [email or web address] Office: [phone] February 25, 2024 documented in this encounter [facility] 02-25-2024 Note [facility] 02-25-2024 Note HNO ID: [id number] Author: PADMA HELM RRT Service: ? Author Type: Registered Resp Therapist Type: Progress Notes Filed: 02/25/2024 15:15 Note Text: PULM FUNCTION SMARTBLOCK: Provider: Jean Pierre Kilgore MD Spirometry: 1 [facility] 02-25-2024 Note [facility] 02-25-2024 Note [facility] 02-25-2024 History of Presen t illness Narrative Patient doesn't have a home care nurse to pull picc. Orders for picc removal entered into epic, nurse or MD at pulmonary appointment today to pull picc. Fern Sprague I I have communicated my name and active licensure. The patient's identity and physical location were verified at the time of this visit. Either the patient or their legal motor vehicle field representative has been informed of the risks and benefits of, and alternatives to, treatment through a remote evaluation and consents to proceed with the evaluation remotely. Weekly OPAT labs reviewed. WBC 4.0 k/uL. Eosinophil % 12.1%, absolute eosinophils 0.48 k/uL - elevated from prior. Scr 1.6 mg/dL - significantly increased. Calculated CrCl 37 mL/min. LFTs rising. Patient is currently ordered meropenem 1 g IV q8h and vancomycin 750 mg IV q24h. The most recent vancomycin level was 18.1 mcg/mL drawn on 02/24/24 at 1:15 PM. Will forward results to managing ID provider, Dr. Bailon, for further review. Of note, patient has scheduled follow up visit with Dr. Kilgore today and planned OPAT stop date of 02/26/24. If antimicrobials are to be extended, recommend meropenem dose be adjusted to meropenem 1 g IV q12h based on renal function. Recommend repeat Scr and vancomycin level today to ensure patient is not accumulating. Fiordaliza Mcfarlane RPh 02/25/2024 8:11 AM Per orders of Dr. Bailon stop OPAT today. Okay to remove PICC. Notified [facility] at [phone], verbal orders given to Peewee (pharmacist). Called patient to update on plan - no answer, left voicemail advising to stop IV vanc and meropenem at this time. Fiordaliza Mcfarlane RPh 02/25/2024 9:39 AM documented in this encounter [facility] 02-25-2024 Note [facility] 02-25-2024 Note [facility] 02-20-2024 Miscellaneous Notes Pt notified office that he received letter from [facility] stating they will not pay for the last 3 days of his hospitalization. [facility] re: likely utilization review had not received all information that required him to stay after initial copat was written. Instructed him to just hang on to the letter. Hospital will likely send necessary documentation to get stay approved. Pt to let me know if he receive further documentation or bill. documented in this encounter [facility] 02-19-2024 Miscellaneous Notes SW handling patient's letter from insurance. Spoke with patient regarding request for IV abx extension- denies any new or worsening symptoms at this time. States he just noticed now that he's settled at home that he is still short of breath with some of his daily activities- was hoping to extend the course since he already has PICC in place. Discussed with Sally Schneider CNP - medications extended through 02/26/24 to give patient a full 3 week course. Called and updated orders with [facility]. Patient also updated with the extension. Pt's NOV is with Dr. Kilgore on Friday02/25/24 - will readjust orders again following that visit if appropriate. Patient's home IV has a stop date of 02/23/24 and wants to know if he can extend it for another week? Patient received a letter from his insurance [employer] regarding his inpatient stay stating he will not be covered for February 12 & . Patient has questions regarding this letter and wants to know should he scan it to his MyChart or bring the letter to his appointment with Dr. Kilgore next week? Please advise [phone] documented in this encounter [facility] 02-19-2024 History of Presen t illness Narrative [facility] OPAT PHARMACIST VANCOMYCIN DOSING NOTE Patient Name: Jay Barber Date of Consult: 02/19/2024 Time of Consult: 3:11 PM Indication: Pneumonia Goal Range: 15-20 mcg/mL RECOMMENDATIONS/PLAN: Pharmacy consulted for vancomycin dosing for Jay Barber, a 28 year old male. 1. Patient is currently ordered vancomycin 500 mg IV q12h. 2. The most recent vancomycin level was 21.4 mcg/mL drawn on 02/19/24 at 8:20 AM. This is a true trough. 3. Will adjust vancomycin to 750 mg with a dosing interval of q24h. 4. The next vancomycin level will be collected Friday/Friday unless clinically indicated sooner. 5. Notified [facility] at [phone], verbal orders given to Rupert (pharmacist). Advised patient to hold his PM dose tonight. Okay to give AM dose tomorrow if new shipment of medication has not been delivered yet, then start new dose next day. Patient verbalized understanding. We will follow patient renal function, vancomycin levels and doses with you during the course of therapy. Additional recommendations will appear in follow up notes. If you have any questions, please contact Fiordaliza Mcfarlane RPh at [phone]. Age: [age] year old Allergies: ALLERGIES Allergen Reactions Vancomycin Itching, Rash Gets Red Man syndrome and pt if not premedicated with benadryl prior to Vancomycin infusions. Cefoxitin Rash, Other: See Comments Severe abdominal pain, diarrhea, rash Severe Abdominal Pains Linezolid Rash, GI Upset Last 3 Encounter Wt Readings: Date: Wt: 02/03/2024 38.6 kg (85 lb 1.6 oz) 11/20/2023 39.2 kg (86 lb 6.4 oz) 11/12/2023 40.4 kg (89 lb) Last 1 Encounter Ht Readings: Date: Ht: 02/03/2024 157.5 cm (5' 2 ) CrCl: 46.8 mL/min Labs BUN (mg/dL) Date Value 02/16/2024 31 (H) 02/15/2024 30 (H) 02/14/2024 30 (H) Creatinine Date Value 02/17/2024 1.26 MG/DL 02/16/2024 0.95 mg/dL 02/15/2024 0.96 mg/dL WBC Date Value 02/17/2024 4.9 K/uL 02/16/2024 4.28 k/uL 02/15/2024 3.71 k/uL Vancomycin Levels: Vancomycin, result (no units) Date Value 02/17/2024 33.5 (A) Vancomycin (ug/mL) Date Value 02/19/2024 21.4 (H) Fiordaliza Mcfarlane RPh documented in this encounter [facility] 02-19-2024 Note [facility] 02-18-2024 Miscellaneous Notes Addended by: ZAIDA SANTOS on: 02/18/2024 03:41 PM Modules accepted: Orders documented in this encounter [facility] 02-18-2024 Note [facility] 02-18-2024 History of Presen t illness Narrative Summary: Chart Review Abstract CF Pre-Clinic Checklist PRE-TRANSPLANT Last CF clinic visit date: 11/12/[address] Pete Microbiology: b. 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, Trichosporonosis, Aspergillus ---Pancreatic insufficiency - on enzymes with Creon ---CFRD - follows with endocrinology ---CF Liver disease - complicated by portal hypertension, esophageal varices ---Chronic sinusitis ---Anxiety/Depression Exacerbations in the last 12 months: -Hospital Admit: 02/03/24 - 02/16/24 for CF Exacerbation and Upper GIB -> treated with IV Meropenem, Minocycline and Vancomycin while inpatient -> discharged home on IV Meropenem and IV Vancomycin through 02/23/24 -Hospital Admit: 07/02/23-07/29/23 treated with Vancomycin through 07/06, Minocycline through 07/22, and Meropenum through 07/24 (not discharged home on any IV abx) -Hospital Admit: 03/07/23-03/11/23 -> discharged on Home IV abx Vanc and Larisa through 04/01/23 FEV1%: 27% on 02/12/24 FEV1%trend: 29% on 09/24/23 ; 33% on 09/24/23; 36% on 07/24/23 ; 23% on 07/17/23 ; 23% on 07/10/23 ; 23% on 07/02/23 BMI: 15.56 kg/m BMI Trend: RD ANNUAL VISIT Needed: NEEDS for 2023 RT ANNUAL VISIT Needed: NEEDS for 2023 SW ANNUAL VISIT Needed: NEEDS for 2023 SW Mental health screen: NEEDS for 2023 ANNUAL Labs Needed: NEEDS for 2023 Last OGTT/CFRD: +CFRD -> Follows with Dona Barrera Dexa: Completed on 09/24/23 -> Lowest T-score is -3.1 in left femoral neck; repeat after bone appt? T/Z = > -1.0 - every 5 years T/Z = -1.0 to -2.0 - every 2-4 years T/Z = < -2.0 - every 1 year Colonoscopy (age > 35) N/A WNL-every 5 years Abnormal-every 3 or sooner Abdominal Ultra Sound: RUQ US last completed on 07/09/23 -> Cirrhotic liver morphology with hepatic steatosis. (Every 2 years if LFT's normal) Chronic Medications (List why If not on medication): CFTR modulators: Trikafta - on adjusted dosing due to Cirrhosis - reports taking 2 orange pills on even days of the month and 1 orange pill on odd days of the month, No blue pills Pulmozyme: once daily Hypertonic saline: has at home but not currently using Chronic Azithromycin (anti-inflammatory): No (on hold due to prior NTM) Inhaled Abx: [place] Ibuprofen: No Referral to Endo: follows with Dona Barrera- next visit scheduled for 03/09/24 Referral to Transplant: Lung and liver discussed extensively with patient during July 2023 hospital admission - pt eventually deferred at hospital discharge EPIC/Phone Messages since last visit: -needed Miralax clean out--stayed on maintenance dose -discussed vitamin supplementation Plan for visit: - Andrea Stuart visit - F/u visit from [facility] admission 02/03/24 - 02/16/24 for CF Exacerbation and Upper GIB - treated with IV Meropenem, Minocycline and Vancomycin while inpatient - transferred to MICU and had EGD done on 02/05/24 that showed two duodenal ulcers (not actively bleeding) - treated with epi injection and clip x 2 - discharged home on IV meropenem and IV vancomycin via PICC line - goes to 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 Lindo - REMIND PATIENT: Has Endocrinology visit scheduled at [facility] on 03/09/24 with Stephie Ramirez - needs f/u from his latest DEXA results on 09/22/23 -> lowest T-score -3.1 in L femoral neck - Already has a 3 month f/u visit scheduled with Dr. Kilgore at [facility] on 05/05/24 documented in this encounter [facility] 02-18-2024 Note [facility] 02-18-2024 History of Presen t illness Narrative Summary: Chart Review Abstract CF Pre-Clinic Checklist PRE-TRANSPLANT Last CF clinic visit date: 11/12/[address] Pete Microbiology: b. 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 Discharged home on IV Meropenem and IV Vancomycin. -Hospital Admit: 07/02/23-07/29/23 treated with Vancomycin through 07/06, Minocycline through 07/22, and Meropenum through 07/24 (not discharged home on any IV abx) -Hospital Admit: 03/07/23-03/11/23 -> discharged on Home IV abx Vanc and Larisa through 04/01/23 FEV1%: 27% on 02/12/24 FEV1%trend: 29% on 09/24/23 ; 33% on 09/24/23; 36% on 07/24/23 ; 23% on 07/17/23 ; 23% on 07/10/23 ; 23% on 07/02/23 BMI: 15.56 kg/m BMI Trend: RD ANNUAL VISIT Needed: NEEDS for 2023 RT ANNUAL VISIT Needed: NEEDS for 2023 SW ANNUAL VISIT Needed: NEEDS for 2023 Mental health screen: NEEDS for 2023 ANNUAL Labs Needed: NEEDS for 2023 Last OGTT/CFRD: +CFRD -> Follows with [facility] Dexa: Completed on 09/24/23 -> Lowest T-score is 3.1 in left femoral neck; repeat after bone appt? T/Z = > -1.0 - every 5 years T/Z = -1.0 to -2.0 - every 2-4 years T/Z = < -2.0 - every 1 year Colonoscopy (age > 35) N/A WNL-every 5 years Abnormal-every 3 or sooner Abdominal Ultra Sound: RUQ US last completed on 07/09/23 -> Cirrhotic liver morphology with hepatic steatosis. (Every 2 years if LFT's normal) Chronic Medications (List why If not on medication): CFTR modulators: Trikafta - on adjusted dosing due to Cirrhosis - reports taking 2 orange pills on even days of the month and 1 orange pill on odd days of the month, No blue pills Pulmozyme: once daily Hypertonic saline: has at home but not currently using Chronic Azithromycin (anti-inflammatory): No (on hold due to prior NTM) Inhaled Abx: No Ibuprofen: No Referral to Endo: follows with Dona Barrera; scheduled for 03/09/24 Referral to Transplant: Lung and liver discussed extensively with patient during July 2023 hospital admission - pt eventually deferred at hospital discharge EPIC/Phone Messages since last visit: -needed Miralax clean out--stayed on maintenance dose -discussed vitamin supplementation Other: - Hospital Admit: 02/03/24 - 02/16/24 for CF Pulmonary Exacerbation & Upper GI Bleed -treated with IV Meropenem, Minocycline and Vancomycin while inpatient -discharged home on IV Meropenem and IV Vancomycin via PICC -was transferred to the MICU for EGD on 02/05/24 -> two duodenal ulcers (not actively bleeding) were treated with epi injection and clip x2. H.pylori testing was negative. -received 1 unit PRBC on 02/13/24 Plan for visit: - [facility] - Hospital Admission f/u - was at [facility] from 02/03/24 - 02/16/24 for CF Pulmonary Exacerbation, Upper GIB -treated with IV Meropenem, Minocycline and Vancomycin while inpatient -discharged home on IV Meropenem and IV Vancomycin via PICC -was transferred to the MICU for EGD on 02/05/24 -> two duodenal ulcers (not actively bleeding) were treated with epi injection and clip x2. H.pylori testing was negative. -received 1 unit PRBC on 02/13/24 - Patient was mailed a sputum cup on 02/18/24 - asked him to bring sample to this appt - grew Mycobacterium chelonae on 02/03/24 AFB Culture - Sj ordered and scheduled - Needs annual 2023 labs - already ordered and msg sent to patient - Due for annual [address] RT, and SW - complete at next [facility] visit on 05/05/24 - REMIND PATIENT: He has a hepatology visit scheduled at [facility] on 04/07/[address] Lindo - REMIND PATIENT: He has an endocrinology visit at [facility] with Stephie Ramirez CNP ON 03/09/24 - needs to f/u regarding his bone density results - Already has a 3 month f/u visit with Dr. Kilgore scheduled on 05/05/24 at [facility] documented in this encounter [facility] 02-18-2024 History of Presen t illness Narrative Patient is currently ordered vancomycin 500 mg IV q12h. Vancomycin level 33.5 mcg/mL collected 02/17/24 at 1:35 PM. Scr 1.26 mg/dL - significantly increased from prior. Attempted to call patient to determine if true trough. No answer - left voicemail with callback number. Fiordaliza Mcfarlane RPh 02/18/2024 11:40 AM Spoke to patient who stated he administers vancomycin at 9AM/9PM. Therefore, the vancomycin level is more reflective of a peak rather than a trough level. Discussed with patient obtaining a repeat vancomycin level and Scr tomorrow morning, prior to his AM dose. Patient confirmed that he will be able to go to his local [facility] lab location in [place] to have this collected. Orders have been placed. Fiordaliza Mcfarlane RPh 02/18/2024 4:33 PM documented in this encounter [facility] 02-18-2024 Miscellaneous Notes Addended by: FIORDALIZA MCFARLANE on: 02/18/2024 04:35 PM Modules accepted: Orders documented in this encounter [facility] 02-18-2024 Note [facility] 02-18-2024 Note [facility] 02-18-2024 Miscellaneous Notes Called patient and asked that he obtain a sputum sample prior to his upcoming appointment next week with Dr. Kilgore in order to drop it off while he's there. Patient agreeable. Sputum cup provided to Licensed Mortgage Loan Officer to mail to patient. documented in this encounter [facility] 02-17-2024 Miscellaneous Notes (RF1) Have you noticed any increased shortness of breath since discharge? No (RF2) Have you noticed any changes in your wound or incision since you were discharged? [such as redness, pain, warmth, swelling, or drainage at the site] No (RF3) Are you having any increased pain since discharge? If yes: What type of pain and where? (pressure, dull pain, sharp pain, etc.) No (RF4) Have you had any new or worsening symptoms since discharge? If yes: What symptoms? (describe/explain, etc.) No (RF5) Have you had any unplanned visits to the emergency department, hospital, or urgent care since you were discharged? No (M1) Were you able to fill your medications? Yes (M2) Do you have any questions about how or when to take your medications? [as prescribed] No (CC1) Do you have your doctor s appointment scheduled? Yes SMS: It is important to your doctor that we continue to check in with you. We will be sending you a follow up text message between calls. What is the best number to reach you? [record] No Call Outcome All Clear Call Focusarythmia : falseblood : falsebreath : falsecare : falsechest : falseeducation : falsefollow : truefyi : falsegi : falseincision : falseinfection : falsemedication : falsena : falseneuro : falseother : falsepain : falseswelling : false Notes Notes PD nurse confirmed/verified patient's and full name. All clear. Closing statement given. Randall Rodríguez RN documented in this encounter [facility] 02-16-2024 Note [facility] 02-16-2024 History of Presen t illness Narrative Coordinated care with inpatient primary pulmonary team and CF team. Recommended celiac labs to assess for celiac disease given low albumin and ongoing lower extremity edema. Patient will get outpatient with labs 02/[address] documented in this encounter [facility] 02-16-2024 Note [facility] 02-15-2024 Note [facility] 02-15-2024 Note [facility] 02-15-2024 Note [facility] 02-15-2024 Miscellaneous Notes Follow up appointment: Hepatology Schedule follow up appointment within 1 week Patient eligible for virtual visit? Schedule with [facility] Provider [facility] Provider: TIA LINDO [[id number]] Testing Ordered Follow Up Reason: CF-related liver disease Please advise and assist with scheduling pt for a f/u w/ Dr. Lindo at the provider's convenience. Thank you! documented in this encounter [facility] 02-15-2024 Note [facility] 02-14-2024 Note [facility] 02-13-2024 Note [facility] 02-13-2024 History of Presen t illness Narrative Abstract - IV Antibiotics Antibiotic ordered: IV Meropenem 1 gram IV every 8 hours IV Vancomycin 750 mg IV every 12 hours And IV Dyphenhydramine 50 mg IV 30 minutes pre-dose Q 12 h prior to vanco dose Additional orders/supplies: -0.9% sodium chloride (NACL 0.9%) infusion; 125 ml/hr for 8 hours during night -sodium chloride 0.9% flush (BD POSIFLUSH) syringe; Flush before and after abx infusion with 10 ml -Heparin 100 unit/ml injection; 5 ml; For access and de-access of medports (CF only) -Heparin 10/unit/ml injection; 5 ml; Flush before and after each abx infusion using SASH method (CF only) Start Date: TBD Tentative End Date: Tentatively 02/23/2024 Central Line type: Lft arm Single Lumen PICC placed on 02/03/24 Placed by whom: PICC Team while admitted Home Care Agency: machine repair person: OP clinic: [facility] for labs and line care Home Infusion Pharmacy Agency: machine repair person: [facility] Fax: Have we called HC agency to follow up orders/additional needs? TBD Did we need to contact HC Liaison (Teresa Medina or Mckenna Masterson): Yes or No. Issues: No Labs ordered: CBC w/ Diff CMP Pre-dose Vancomycin Labs once or twice weekly: Twice weekly Days: TBD Patient phone number [phone] Were they contacted? Clinic follow-up appointment date: TBD documented in this encounter [facility] 02-13-2024 Note [facility] 02-13-2024 Note [facility] 02-12-2024 Note HNO ID: [id number] Author: PADMA HELM RRT Service: ? Author Type: Registered Resp Therapist Type: Progress Notes Filed: 02/12/2024 14:30 Note Text: PULM FUNCTION SMARTBLOCK: Inpatient: Yes Spirometry: 1 [facility] 02-12-2024 History of Presen t illness Narrative PULM FUNCTION SMARTBLOCK: Inpatient: Yes Spirometry: 1 documented in this encounter [facility] 02-12-2024 Note [facility] 02-11-2024 Note [facility] 02-10-2024 Note [facility] 02-09-2024 Note [facility] 02-09-2024 Note [facility] 02-09-2024 History of Presen t illness Narrative Images from the original note were not included. [facility] Outpatient Parenteral Antimicrobial Therapy (OPAT) Start Form Patient Info Patient MRN Patient Name Address Date of [id number] Jay Barber [address] [facility] [id number] 1995 Start Date 02/09/2024 Physician Group Cc_main Diagnosis Group Diagnosis Thoracic: Pneumonia Micro-organism BURKHOLDERIA CEPACIA STAPHYLOCOCCUS AUREUS IV Antibiotics Meropenem 1 gram IV every 8 hours STOP DATE: 02/23/2024 Vancomycin 1 gram IV every 24 hours STOP DATE: 02/23/2024 Lab Monitoring Plan/Orders CBC/diff every Friday/Friday while on Meropenem Vancomycin BMP every Friday/Friday while on Meropenem Vancomycin Liver Function Tests every Friday/Friday while on Meropenem Pre-dose Vancomycin level every Friday/Friday while on Vancomycin Pharmacy Consult Yes Cath Care Protocol Flush IV line with 10 mL of normal saline (0.9%) before and after each dose of medication or at a minimum once daily. Flush IV line with 10-20 mL of normal saline (0.9%) after lab draw. Provider Monitoring Treatment Course Amadou Bailon MD Follow up Provider Follow up date/time Appointment type Amadou Bailon MD No Follow Up (Regular hours), (Off hours) Address [address] [place] [address] Prescribing Provider's signature - electronically signed by Amadou Bailon MD on 02/09/24 at 4:00 PM documented in this encounter [facility] 02-09-2024 Note [facility] 02-08-2024 Note [facility] 02-07-2024 Note [facility] 02-07-2024 Note HNO ID: [id number] Author: NOTE, INTERFACE, ? Service: ? Author Type: ? Type: Progress Notes Filed: 02/07/2024 03:36 Note Text: Epic Scheduled Downtime: 02/07/2024 1:00:00 AM to 02/07/2024 3:24:00 AM [facility] 02-06-2024 Note [facility] 02-06-2024 Note [facility] 02-05-2024 Note [facility] 02-05-2024 Note [facility] 02-05-2024 Note [facility] 02-05-2024 History of Past i llness Narrative Problem Noted Date Diagnosed Date Resolved Date Acute bleeding 02/05/2024 02/16/2024 Cystic fibrosis with pulmonary exacerbation 11/05/2022 02/16/2024 documented as of this encounter (statuses as of 02/16/2024) [facility] History of Past illness Narrative* Problem Noted Date Diagnosed Date Resolved Date Acute bleeding 02/05/2024 02/16/2024 Cystic fibrosis with pulmonary exacerbation 11/05/2022 02/16/2024 documented as of this encounter (statuses as of 02/17/2024) [facility] History of Past illness Narrative* Problem Noted Date Diagnosed Date Resolved Date Acute bleeding 02/05/2024 02/16/2024 Cystic fibrosis with pulmonary exacerbation 11/05/2022 02/16/2024 documented as of this encounter (statuses as of 02/17/2024) [facility] History of Past illness Narrative* Problem Noted Date Diagnosed Date Resolved Date Acute bleeding 02/05/2024 02/16/2024 Cystic fibrosis with pulmonary exacerbation 11/05/2022 02/16/2024 documented as of this encounter (statuses as of 02/18/2024) [facility] History of Past illness Narrative* Problem Noted Date Diagnosed Date Resolved Date Acute bleeding 02/05/2024 02/16/2024 Cystic fibrosis with pulmonary exacerbation 11/05/2022 02/16/2024 documented as of this encounter (statuses as of 02/18/2024) [facility] History of Past illness Narrative* Problem Noted Date Diagnosed Date Resolved Date Acute bleeding 02/05/2024 02/16/2024 Cystic fibrosis with pulmonary exacerbation 11/05/2022 02/16/2024 documented as of this encounter (statuses as of 02/18/2024) [facility] History of Past illness Narrative* Problem Noted Date Diagnosed Date Resolved Date Acute bleeding 02/05/2024 02/16/2024 Cystic fibrosis with pulmonary exacerbation 11/05/2022 02/16/2024 documented as of this encounter (statuses as of 02/18/2024) [facility] History of Past illness Narrative* Problem Noted Date Diagnosed Date Resolved Date Acute bleeding 02/05/2024 02/16/2024 Cystic fibrosis with pulmonary exacerbation 11/05/2022 02/16/2024 documented as of this encounter (statuses as of 02/18/2024) [facility] History of Past illness Narrative* Problem Noted Date Diagnosed Date Resolved Date Acute bleeding 02/05/2024 02/16/2024 Cystic fibrosis with pulmonary exacerbation 11/05/2022 02/16/2024 documented as of this encounter (statuses as of 02/18/2024) [facility] History of Past illness Narrative* Problem Noted Date Diagnosed Date Resolved Date Acute bleeding 02/05/2024 02/16/2024 Cystic fibrosis with pulmonary exacerbation 11/05/2022 02/16/2024 documented as of this encounter (statuses as of 02/20/2024) [facility] History of Past illness Narrative* Problem Noted Date Diagnosed Date Resolved Date Acute bleeding 02/05/2024 02/16/2024 Cystic fibrosis with pulmonary exacerbation 11/05/2022 02/16/2024 documented as of this encounter (statuses as of 02/24/2024) [facility] History of Past illness Narrative* Problem Noted Date Diagnosed Date Resolved Date Acute bleeding 02/05/2024 02/16/2024 Cystic fibrosis with pulmonary exacerbation 11/05/2022 02/16/2024 documented as of this encounter (statuses as of 02/25/2024) [facility] History of Past illness Narrative* Problem Noted Date Diagnosed Date Resolved Date Acute bleeding 02/05/2024 02/16/2024 Cystic fibrosis with pulmonary exacerbation 11/05/2022 02/16/2024 documented as of this encounter (statuses as of 03/01/2024) [facility] History of Past illness Narrative* Problem Noted Date Diagnosed Date Resolved Date Acute bleeding 02/05/2024 02/16/2024 Cystic fibrosis with pulmonary exacerbation 11/05/2022 02/16/2024 documented as of this encounter (statuses as of 03/01/2024) [facility] History of Past illness Narrative* Problem Noted Date Diagnosed Date Resolved Date Acute bleeding 02/05/2024 02/16/2024 Cystic fibrosis with pulmonary exacerbation 11/05/2022 02/16/2024 documented as of this encounter (statuses as of 03/02/2024) [facility] History of Past illness Narrative* Problem Noted Date Diagnosed Date Resolved Date Acute bleeding 02/05/2024 02/16/2024 Cystic fibrosis with pulmonary exacerbation 11/05/2022 02/16/2024 documented as of this encounter (statuses as of 03/08/2024) [facility] History of Past illness Narrative* Problem Noted Date Diagnosed Date Resolved Date Acute bleeding 02/05/2024 02/16/2024 Cystic fibrosis with pulmonary exacerbation 11/05/2022 02/16/2024 documented as of this encounter (statuses as of 03/10/2024) [facility] History of Past illness Narrative* Problem Noted Date Diagnosed Date Resolved Date Acute bleeding 02/05/2024 02/16/2024 Cystic fibrosis with pulmonary exacerbation 11/05/2022 02/16/2024 documented as of this encounter (statuses as of 03/18/2024) [facility] Miscellaneous Notes* Telephone Encounter - Zaida Santos RN - 02/03/2024 10:40 AM EST Also arranged for direct admission for patient today in the event a bed is ready prior to patient travelling here to the ED. Patient will keep us posted if he gets a bed assignment or ends up going right to the ED. * Telephone Encounter - Fernando Zhang RD - 02/03/2024 9:59 AM EST Returned call to patient. Reports he feels similar to when he was last admitted in July 2023, although he is not having vomiting and is having BMs. Appetite is poor. He is more SOB, coughing more, thicker sputum, fatigue. Reports swelling in feet but has not noticed any swelling in his abdomen. Let patient know to come to [facility] ED as soon as he can so they can get abdominal xray, labs, viral swab. Fernando Zhang RD * Telephone Encounter - Radha Carvajal - 02/03/2024 9:08 AM EST Patient called to request advise - unsure if he should head to ER at this point or try to be seen here. Patient stated that he has had a fever for about a week and a half now. Highest temp taken was 103.He has been treating with Tylenol but cannot seem to get fever below 100. Patient's feet are swollen like they were during last episode. Patient has no appetite so has not really eaten for a couple days now. Patient can get food down and keep it down when he forces himself to eat. Patient stated that he does feel he is starting to get dehydrated again. Requests clinical guidance. Jay (Self) [facility] History of Present illness Narrative* Fernando Zhang RD - 01/02/2024 12:01 PM EST CF Pre-Clinic Checklist PRE-TRANSPLANT Last CF clinic visit date: 11/12/[address] Pete Microbiology: b. Cepacia complex; MRSA Lab Results Component Value Date CULT Rare Methicillin resistant Staphylococcus aureus (A) 11/12/2023 CULT Moderate normal respiratory vicky (A) 11/12/2023 CULT Negative for anaerobes. 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, Trichosporonosis, Aspergillus ---Pancreatic insufficiency - on enzymes with Creon ---CFRD - follows with endocrinology ---CF Liver disease - complicated by portal hypertension, esophageal varices ---Chronic sinusitis ---Anxiety/Depression Exacerbations in the last 12 months: -Hospital Admit: 07/02/23-07/29/23 treated with Vancomycin through 07/06, Minocycline through 07/22, and Meropenum through 07/24 (not discharged home on any IV abx) -Hospital Admit: 03/07/23-03/11/23 -> discharged on Home IV abx Vanc and Larisa through 04/01/23 FEV1%: 29% on 09/24/23 FEV1%trend: 33% on 09/24/23; 36% on 07/24/23 ; 23% on 07/17/23 ; 23% on 07/10/23 ; 23% on 07/02/23 BMI: 15.31 kg/m BMI Trend: RD ANNUAL VISIT Needed: NEEDS RT ANNUAL VISIT Needed: NEEDS ANNUAL VISIT Needed: NEEDS Mental health screen: NEEDS ANNUAL Labs Needed: NEEDS Last OGTT/CFRD: +CFRD -> Follows with [facility]: Completed on 09/24/23 -> Lowest T-score is 3.1 in left femoral neck; repeat after bone appt? T/Z = > -1.0 - every 5 years T/Z = -1.0 to -2.0 - every 2-4 years T/Z = < -2.0 - every 1 year Colonoscopy (age > 35) N/A WNL-every 5 years Abnormal-every 3 or sooner Abdominal Ultra Sound: RUQ US last completed on 07/09/23 -> Cirrhotic liver morphology with hepatic steatosis. (Every 2 years if LFT's normal) Chronic Medications (List why If not on medication): CFTR modulators: Trikafta - on adjusted dosing due to Cirrhosis - reports taking 2 orange pills on even days of the month and 1 orange pill on odd days of the month, No blue pills Pulmozyme: once daily Hypertonic saline: has at home but not currently using Chronic Azithromycin (anti-inflammatory): No (on hold due to prior NTM) Inhaled Abx: [place] Ibuprofen: No Referral to Endo: follows with Dona Barrera; scheduled 03/09/24 Referral to Transplant: Lung and liver discussed extensively with patient during July 2023 hospital admission - pt eventually deferred at hospital discharge EPIC/Phone Messages since last visit: -needed Miralax clean out--stayed on maintenance dose -discussed vitamin supplementation Plan for visit: - Perdido ordered and scheduled on - arrange bone clinic appt - Encourage patient to make a f/u visit with hepatology? (Has declined recommendations for lung/liver transplant) - Will need annual labs this year - ordered -Will need RD, RT, SW this year -follow up from last visit, he was sick and stayed on minocycline for [address] [facility]2023 NoteHNO ID: [id number] Author: Stephie Ramirez APRN.ACQUISITION ANALYST Service: ? Author Type: Nurse Practitioner Type: Progress Notes Filed: 11/20/2023 3:02 PM Note Text: Subjective Date of encounter: 11/20/2023 Jay Barber (1995), is a 28 year old male who presents for Diabetes management Important Lab History: HBA1C:10/2013: 10.8%, 12/2013: 7.4%, 03/2014: 9.6%, 03/2014: 8.1%, 05/2014: 6.7%, 05/2015: 6.9%, 08/2015: 8.4%, 12/2015: HbA1c 8.3%, 03/2016: 8.9%, 05/2016: 7.0%, 01/2018: 9.6%, 05/2018: 10.3%, 08/2018: 8.2%, 10/2018: 7.9%, 01/2019: 8.1%, 03/2019: 6.6%, 07/2019: 6.5%, 12/2019: 6.9%, 07/2020: 6.6%, 08/2020: 6.4%, 01/2021: HbA1C 8.3%, 03/2021: 8.3%, 05/2021: 7.4%, 08/2021: 7.4%, 12/2021: 7.5%, 07/2022: 8.6%, 10/2022: 8.4%, 03/2023: 7.7%, 07/2023: 6.9%, 10/2023: 6.4% Thyroid Function Testin10/2013: TSH 2.29 (0.358-3.740), free T4 1.02 (0.76-1.46), 12/2015: TSH 1.970 (0.358-3.740 uIU/mL), free T4 1.15 (0.76-1.46 ng/dL), 01/2018: TSH 1.735 (0.35-5.5), 12/2018: TSH 1.137 (0.35-5.5), 05/2019: TSH 2.293 (0.35-5.5), 01/2020: TSH 1.754 (0.35-5.5), free T4 1.2 (0.9-1.5), 01/2021: TSH 1.9 (0.27-4.2 uIU/mL), free T4 1.2 (0.9-1.7), 12/2021: TSH 3.41 (0.27-4.2 uIU/mL), free T4 1.1 (0.9-1.7), 07/2023: TSH 2.35 (0.27-4.2 uIU/mL), Renal Function Testin08/2013: creatinine 0.7, 12/2015: creatinine 0.69 mg/dL, eGFR >60,), 05/2018: Creatinine 0.72, 01/2019: Creatinine 0.86, 07/2019: Creatinine 0.73, 07/2020: Creatinine 0.65, 10/2020: Creatinine 0.64, 01/2021: Creatinine 0.81, 03/2021: Creatinine 0.73, 12/2021: Creatinine 0.64, 12/2022: Creatinine 0.78, 03/2023: Creatinine 0.83, 08/2023: Creatinine 1.13 eGFR 90, 10/2023: Creatinine 1.04 Urine for Microalbumin:10/2013: Microalbumin:Creatinine ratio ok,12/2015: microalbumin : creatinine ratio ok, 08/2017: Microalbumin:Creatinine Ratio ok, 10/2018: Microalbumin:Creatinine Ratio 535, 01/03/2020: Microalbumin:Creatinine Ratio 650, 01/2021: Microalbumin:Creatinine Ratio 361. Improved but above goal. Jay states he has used lisinopril in the past but this increased his potassium too much and it was discontinued. He will inquire further with his CF providers about losartan. I advised him to make an appointment with nephrology as we had previously discussed., 03/19/2021: Microalbumin:Creatinine Ratio 1220, 08/2021: still hasn't made appointment with kidney specialist, stressed the importance of this to prevent further kidney damage., 10/2022: prot/creat ratio in epic, making appointment with nephrology, 07/2023: prot/creat ratio in [facility] Lipid Profile:10/2013: TC 111, HDL 42, LDL 56, TG 56, 12/2015: TC 122, HDL 52, LDL 60, TG 49, 10/2018: TC 160, HDL 72, LDL 71, TG 83, 01/03/2020: TC 253 HDL 133 LDL 112 TG 38, 01/2021: TC 179 HDL 115 LDL 54 TG 51, 03/2021: TC 233 HDL 143 LDL 84 TG 32 Liver Profile:08/2013: AST 93, ALT 65, Alkaline Phosphatase 811, 12/2015: AST 110 (9-37 U/L), ALT 164 (12-78 U/L), alkaline phosphatase 807 (46-116 U/L), Bilirubin, total 1.3 (0.2-1.0, mg/dL, 05/2018: results in care everywhere, 12/2019: results in care everywhere, 01/2020: labs in [facility] 07/2020; Alkaline Phosphatase 725 (45-117), ALT 77 (16-61), AST 163 (15-37), 12/2020: results in care everywhere., 03/2021: results In care everywhere, 12/2021: Alkaline Phosphatase 918 (38-113), bone percent 13.9%, liver percent 86.1 , 12/2022: liver function monitored by CF providers, 03/2023: in [facility], 08/2023: LFTS in [facility], 10/2023: LFTS in [facility] Dilated Eye Exam: Patient educated to have ophthalmology visits at least once a year. 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 08/2013: New patient visit for Cystic Fibrosis related Diabetes Previous diabetes related labs from [facility] and [facility]-everywhere systems reviewed prior to today's office visit. Any changes made at our last diabetes management visit were abstracted accordingly (if applicable). Today's Office Visit: Jaydon Dennis: reminded patient to make appointment with for osteoporosis. Nephrology: had out patient visit in August per patient. Hepatology: seen last hospital admission in July per patient. Hematology: had appointment per patient. Lipids: advised to discuss with CF providers, may not be able to treat with high liver enzymes. Endocrinology: we manage patients CFRD only. self monitoring blood glucose data : see dexcom report. Average 14 day SG 186 predicted gmi 7.8%, 52% TIR 2% low range. Diet: can be high in carbs per patient due to CF diet to gain weight per patient.. Exercise: minimal History of hypoglycemia unawareness,-using dexcom now. Likes the g7 Insulin pump: not interested at this time until its approved with g7. Glucagon kit: has baqsimi. Your new insulin regimen: Long acting insulin: Insulin used for this is called: Basaglar Bedtime dose 8 units Rapid acting /mealtime insulin: Insulin used for this is called: Humalog or Novolog insulin unit:grams of (more content not included)...[facility]12-21-2023 NoteHNO ID: [id number] Author: Stephie Ramirez APRN.ACQUISITION ANALYST Service: ? Author Type: Nurse Practitioner Type: Progress Notes Filed: 11/20/2023 11:45 AM Note Text: Subjective Important Lab History: HBA1C:10/2013: 10.8%, 12/2013: 7.4%, 03/2014: 9.6%, 03/2014: 8.1%, 05/2014: 6.7%, 05/2015: 6.9%, 08/2015: 8.4%, 12/2015: HbA1c 8.3%, 03/2016: 8.9%, 05/2016: 7.0%, 01/2018: 9.6%, 05/2018: 10.3%, 08/2018: 8.2%, 10/2018: 7.9%, 01/2019: 8.1%, 03/2019: 6.6%, 07/2019: 6.5%, 12/2019: 6.9%, 07/2020: 6.6%, 08/2020: 6.4%, 01/2021: HbA1C 8.3%, 03/2021: 8.3%, 05/2021: 7.4%, 08/2021: 7.4%, 12/2021: 7.5%, 07/2022: 8.6%, 10/2022: 8.4%, 03/2023: 7.7%, 07/2023: 6.9%, Thyroid Function Testin10/2013: TSH 2.29 (0.358-3.740), free T4 1.02 (0.76-1.46), 12/2015: TSH 1.970 (0.358-3.740 uIU/mL), free T4 1.15 (0.76-1.46 ng/dL), 01/2018: TSH 1.735 (0.35-5.5), 12/2018: TSH 1.137 (0.35-5.5), 05/2019: TSH 2.293 (0.35-5.5), 01/2020: TSH 1.754 (0.35-5.5), free T4 1.2 (0.9-1.5), 01/2021: TSH 1.9 (0.27-4.2 uIU/mL), free T4 1.2 (0.9-1.7), 12/2021: TSH 3.41 (0.27-4.2 uIU/mL), free T4 1.1 (0.9-1.7), 07/2023: TSH 2.35 (0.27-4.2 uIU/mL), Renal Function Testin08/2013: creatinine 0.7, 12/2015: creatinine 0.69 mg/dL, eGFR >60,), 05/2018: Creatinine 0.72, 01/2019: Creatinine 0.86, 07/2019: Creatinine 0.73, 07/2020: Creatinine 0.65, 10/2020: Creatinine 0.64, 01/2021: Creatinine 0.81, 03/2021: Creatinine 0.73, 12/2021: Creatinine 0.64, 12/2022: Creatinine 0.78, 03/2023: Creatinine 0.83, 08/2023: Creatinine 1.13 eGFR 90, 10/2023: Creatinine 1.04 Urine for Microalbumin:10/2013: Microalbumin:Creatinine ratio ok,12/2015: microalbumin : creatinine ratio ok, 08/2017: Microalbumin:Creatinine Ratio ok, 10/2018: Microalbumin:Creatinine Ratio 535, 01/03/2020: Microalbumin:Creatinine Ratio 650, 01/2021: Microalbumin:Creatinine Ratio 361. Improved but above goal. Jay states he has used lisinopril in the past but this increased his potassium too much and it was discontinued. He will inquire further with his CF providers about losartan. I advised him to make an appointment with nephrology as we had previously discussed., 03/19/2021: Microalbumin:Creatinine Ratio 1220, 08/2021: still hasn't made appointment with kidney specialist, stressed the importance of this to prevent further kidney damage., 10/2022: prot/creat ratio in epic, making appointment with nephrology, 07/2023: prot/creat ratio in epic Lipid Profile:10/2013: TC 111, HDL 42, LDL 56, TG 56, 12/2015: TC 122, HDL 52, LDL 60, TG 49, 10/2018: TC 160, HDL 72, LDL 71, TG 83, 01/03/2020: TC 253 HDL 133 LDL 112 TG 38, 01/2021: TC 179 HDL 115 LDL 54 TG 51, 03/2021: TC 233 HDL 143 LDL 84 TG 32 Liver Profile:08/2013: AST 93, ALT 65, Alkaline Phosphatase 811, 12/2015: AST 110 (9-37 U/L), ALT 164 (12-78 U/L), alkaline phosphatase 807 (46-116 U/L), Bilirubin, total 1.3 (0.2-1.0, mg/dL, 05/2018: results in care everywhere, 12/2019: results in care everywhere, 01/2020: labs in [facility], 07/2020; Alkaline Phosphatase 725 (45-117), ALT 77 (16-61), AST 163 (15-37), 12/2020: results in care everywhere., 03/2021: results In care everywhere, 12/2021: Alkaline Phosphatase 918 (38-113), bone percent 13.9%, liver percent 86.1 , 12/2022: liver function monitored by CF providers, 03/2023: in [facility], 08/2023: LFTS in [facility], 10/2023: LFTS in [facility] Dilated Eye Exam: Patient educated to have ophthalmology visits at least once a year. 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 08/2013: New patient visit for Cystic Fibrosis related Diabetes Previous diabetes related labs [facility] prior to today's office visit. Any changes made at our last diabetes management visit were abstracted accordingly (if applicable). Today's Office Visit: Nephrology: has appointment Hepatology: has appointment Hematology: has appointment Lipids: advised to discuss with CF providers, may not be able to treat with high liver enzymes. Endocrinology: we manage patients CFRD only. self monitoring blood glucose data : see dexcom report. Average 14 day SG 208 43% TIR 2% low range . Consistent post meal elevations, then improves overnight. Is very insulin sensitive. Recent extended hospital stay with CF exacerbation. Has only been home for about a week, is re-adjusting to insulin requirements and eating habits. Diet: can be high in carbs per patient due to CF diet to gain weight per patient. Main concern is jay does drink a good amount of reg pop throughout the day which can significantly and consistently keep his blood sugars above goal, then oftentimes overcorrecting into a low blood sugar level. He will work on less reg pop and/or cessation. . Exercise: recently out of the hospital. History of hypoglycemia unawareness,-using dexcom now. Likes the g7 Insulin pump: not interested at this time until its approved with g7. Your new insulin regimen: Long acting (more content not included)...[facility]12-21-2023 History of Present illness Narrative* Stephie Ramirez APRN.[facility] - 11/20/2023 11:44 AM EST Subjective Important Lab History: HBA1C:10/2013: 10.8%, 12/2013: 7.4%, 03/2014: 9.6%, 03/2014: 8.1%, 05/2014: 6.7%, 05/2015: 6.9%, 08/2015: 8.4%, 12/2015: HbA1c 8.3%, 03/2016: 8.9%, 05/2016: 7.0%, 01/2018: 9.6%, 05/2018: 10.3%, 08/2018: 8.2%, 10/2018: 7.9%, 01/2019: 8.1%, 03/2019: 6.6%, 07/2019: 6.5%, 12/2019: 6.9%, 07/2020: 6.6%, 08/2020: 6.4%, 01/2021: HbA1C 8.3%, 03/2021: 8.3%, 05/2021: 7.4%, 08/2021: 7.4%, 12/2021: 7.5%, 07/2022: 8.6%, 10/2022: 8.4%, 03/2023: 7.7%, 07/2023: 6.9%, Thyroid Function Testin10/2013: TSH 2.29 (0.358-3.740), free T4 1.02 (0.76- 1.46), 12/2015: TSH 1.970 (0.358-3.740 uIU/mL), free T4 1.15 (0.76-1.46 ng/dL), 01/2018: TSH 1.735 (0.35-5.5), 12/2018: TSH 1.137 (0.35-5.5), 05/2019: TSH 2.293 (0.35-5.5), 01/2020: TSH 1.754 (0.35-5.5), free T4 1.2 (0.9-1.5), 01/2021: TSH 1.9 (0.27-4.2 uIU/mL), free T4 1.2 (0.9-1.7), 12/2021: TSH 3.41 (0.27-4.2 uIU/mL), free T4 1.1 (0.9-1.7), 07/2023: TSH 2.35 (0.27-4.2 uIU/mL), Renal Function Testin08/2013: creatinine 0.7, 12/2015: creatinine 0.69 mg/dL, eGFR >60,), 05/2018: Creatinine 0.72, 01/2019: Creatinine 0.86, 07/2019: Creatinine 0.73, 07/2020: Creatinine 0.65, 10/2020: Creatinine 0.64, 01/2021: Creatinine 0.81, 03/2021: Creatinine 0.73, 12/2021: Creatinine 0.64, 12/2022: Creatinine 0.78, 03/2023: Creatinine 0.83, 08/2023: Creatinine 1.13 eGFR 90, 10/2023: Creatinine 1.04 Urine for Microalbumin:10/2013: Microalbumin:Creatinine ratio ok,12/2015: microalbumin : creatinine ratio ok, 08/2017: Microalbumin:Creatinine Ratio ok, 10/2018: Microalbumin:Creatinine Ratio 535, 01/03/2020: Microalbumin:Creatinine Ratio 650, 01/2021: Microalbumin:Creatinine Ratio 361. Improved but above goal. Jay states he has used lisinopril in the past but this increased his potassium too muchand it was discontinued. He will inquire further with his CF providers about losartan. I advised him to make an appointment with nephrology as we had previously discussed., 03/19/2021: Microalbumin:Creatinine Ratio 1220, 08/2021: still hasn't made appointment with kidney specialist, stressed the impo rtance of this to prevent further kidney damage., 10/2022: prot/creat ratio in [facility], making appointment with nephrology, 07/2023: prot/creat ratio in [facility] Lipid Profile:10/2013: TC 111, HDL 42, LDL 56, TG 56, 12/2015: TC 122, HDL 52, LDL 60, TG 49, 10/2018: TC 160, HDL 72, LDL 71, TG 83, 01/03/2020: TC 253 HDL 133 LDL 112 TG 38, 01/2021: TC 179 HDL 115 LDL54 TG 51, 03/2021: TC 233 HDL 143 LDL 84 TG 32 Liver Profile:08/2013: AST 93, ALT 65, Alkaline Phosphatase 811, 12/2015: AST 110 (9-37 U/L), ALT 164 (12-78 U/L), alkaline phosphatase 807 (46-116 U/L), Bilirubin, total 1.3 (0.2-1.0, mg/dL, 05/2018: results in care everywhere, 12/2019: results in care everywhere, 01/2020: labs in [facility], 07/2020; Alkaline Phosphatase 725 (45-117), ALT 77 (16-61), AST 163 (15-37), 12/2020: results in care everywhere., 03/2021: results In care everywhere, 12/2021: Alkaline Phosphatase 918 (38-113), bone percent 13.9%, liver percent 86.1 , 12/2022: liver function monitored by CF providers, 03/2023: in [facility], 08/2023: LFTS in [facility], 10/2023: LFTS in [facility] Dilated Eye Exam: Patient educated to have ophthalmology visits at least once a year. 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 08/2013: New patient visit for Cystic Fibrosis related Diabetes [facility] prior to today's office visit. Any changes made at our last diabetes management visit were abstracted accordingly (if applicable). Today's Office Visit: Nephrology: has appointment Hepatology: has appointment Hematology: has appointment Lipids: advised to discuss with CF providers, may not be able to treat with high liver enzymes. Endocrinology: we manage patients CFRD only. self monitoring blood glucose data : see dexcom report. Average 14 day SG 208 43% TIR 2% low range. Consistent post meal elevations, then improves overnight. Is very insulin sensitive. Recent extended hospital stay with CF exacerbation. Has only been home for about a week, is re-adjusting to insulin requirements and eating habits. Diet: can be high in carbs per patient due to CF diet to gain weight per patient. Main concern is jay does drink a good amount of reg pop throughout the day which can significantly and consistently keep his blood sugars above goal, then oftentimes overcorrecting into a low blood sugar level. He will work on less reg pop and/or cessation. . Exercise: recently out of the hospital. History of hypoglycemia unawareness,-using dexcom now. Likes the g7 Insulin pump: not interested at this time until its approved with g7. Your new insulin regimen: Long acting insulin: Insulin used for this is called: Basaglar Bedtime dose 8 units Rapid acting /mealtime insulin: Insulin used for this is called: Humalog or Novolog insulin unit:grams of carb ratio Meal time dosin:25-->since being home, has been taking, close to 1:10 to 1:15 , will use 1:15 with larger amounts of carbs, and 1:10 with smaller amounts of carbs Your sliding scale, for additional units of the rapid acting insulin: Insulin used for this is called: Humalog or Novolog Take this at meals, in addition to the above doses. If glucose reading is: 150-175 Take an additional 0 Units. 176-200 Take an additional 0 Units.------>has been using 1:50/250 201-225 Take an additional 1 Units. 226-250 Take an additional 1 Units. 251-275 Take an additional 1 Units. 276-300 Take an additional 1 Units. 301-325 Take an additional 2 Units. 326-350 Take an additional 2 Units. 351-375 Take an additional 2 Units. 376-400 Take an additional 2 Units. Over 400 Take an additional 3 Units. Typical Day: varies Always check blood sugar prior to driving. Carry glucose tablets when travelling. I reviewed and updated the below Review of Systems for today's office visit. 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) History of transfusion Hypertension Liver disease care home (current) use of insulin (HCC) Transfusion history Type 1 diabetes mellitus with hyperglycemia (HCC) PAST SURGICAL HISTORY Procedure Laterality Date PAST SURGICAL HISTORY OF splenal renal shunt to treat portal hypertension PICC LINE INSERT/CONSULT 03/08/2023 FAMILY HISTORY Problem Relation Age of Onset Hypertension Mother Breast Cancer Other other (hypercholesterolemia) Other other (heart disease in female family member before age 65) Other Social History Tobacco Use Smoking status: Never Smokeless tobacco: Never Vaping Use Vaping Use: Never used Substance Use Topics Alcohol use: No Drug use: No Current Meds PRESERVISION AREDS-2 250-90-40-1 mg take 1 capsule by mouth twice a day with food minocycline (MINOCIN, DYNACIN) 100 mg capsule Take 1 capsule by mouth two times a day for 21 days. carvedilol (COREG) 6.25 mg tablet take 1 tablet by mouth twice a day with meals tranexamic acid (LYSTEDA) 650 mg tablet Take 2 tablets by mouth three times a day for 5 days. insulin glargine (LANTUS SOLOSTAR U-100 INSULIN) 100 unit/mL (3 mL) inject 8 units subcutaneously at bedtime CREON 36,000-114,000- 180,000 unit delayed release capsule Take 3 capsules by mouth three times a day with meals. 3 with snacks dornase christi (PULMOZYME) 1 mg/mL nebulizer solution Inhale 2.5 mL as instructed once daily. elexacaftor 100 mg-tezacaftor 50 mg-ivacaftor 75 mg(d)/ivacaftor 150 mg(n) tablets (TRIKAFTA) Alternate between 2(starting 07/30) and 1 tablet every morning , hold evening dose ipratropium-albuterol (DUONEB) 0.5 mg-3 mg(2.5 mg base)/3 mL nebu Inhale 3 mL as instructed every 4hours as needed for wheezing/shortness of breath. Vit A,C,K-Gwsy-Brzbli (PRESERVISION AREDS) 4,296 mcg-226 mg-90 mg cap Take 1 capsule by mouth twicedaily. Take with food. Blood-Glucose Meter monitoring kit For monitoring sugars 3x/day Lancets lancets Use as instructed 3x/day blood sugar diagnostic (BLOOD GLUCOSE TEST) test strip 3x/day albuterol HFA (VENTOLIN HFA) 90 mcg/actuation inhaler inhale 2 puffs by mouth as directed every 4 hours if needed for wheezing or shortness of breath VITAMIN D2 1,250 mcg (50,000 unit) capsule Take 1 capsule by mouth two times a week. torsemide (DEMADEX) 10 mg tablet Take 1 tablet by mouth once daily. fluticasone (FLONASE) 50 mcg/actuation nasal spray Use 1-2 Sprays in each nostril once daily. fluticasone (FLOVENT) 220 mcg/actuation inhaler Inhale 1 Puff as instructed twice daily. Blood-Glucose Meter,Continuous (DEXCOM G7 CODER OPERATOR) [facility] For monitoring sugars Blood-Glucose Sensor (DEXCOM G7 SENSOR) jean-paul One sensor every 10 days insulin lispro (HUMALOG KWIKPEN INSULIN) 100 unit/mL Dose varies units with meals and sliding scale, using about 30 total units a day Insulin Calvin, Disposable, (BD ULTRA-FINE YARON PEN NEEDLE) 32 gauge x 5/32 5x/day glucagon (BAQSIMI) 3 mg/actuation nasal spray Use 1 Calvin in the nose as needed. May repeat after 15 minutes using a new device if there is no response for severe low blood sugar event aztreonam lysine (CAYSTON) 75 mg/mL nebulizer solution Inhale 1 mL as instructed three times daily.28 days on 28 days off Send altera nebulizer with each shipment Nebulizers 1 Each three times daily. cetirizine (ZYRTEC) 5 mg tablet Take 10 mg by mouth once daily. montelukast (SINGULAIR) 10 mg tablet Take 1 tablet by mouth daily at bedtime. ursodiol (ACTIGALL) 300 mg capsule Take 300 mg by mouth twice daily. Nebulizers 1 Each three times daily. fluticasone-salmeterol (ADVAIR) 500-50 mcg/dose dsdv Inhale 1 Puff as instructed twice daily. Objective There were no vitals taken for this visit. Physical Exam documented in this encounterOhio[facility] History of Present illness Narrative* Varsha Thomason LISW - 11/12/2023 4:43 PM EST CYSTIC FIBROSIS SOCIAL WORK PROGRESS NOTE DATE: 11/12/23 TIME: 4:30 PM Jay is here for a follow up appointment. Pt is still working with CF BRIKA. W to reach out to [employer] re: possible missed medical records. Pt having a difficult time adjusting to not working. Doesn't feel useful or purposeful. Completed mental health screening today. PHQ9- 7 ELVIS-6 Mental Health Coordination No referrals needed Discussed options such as volunteering, going to the gym, pulmonary rehab, and/or a class, or picking up a new hobby, when he is feeling good. He is considering going to [employer] because he can get a discount as an alumni. Discussed CF [employer]exercise grants. He would consider Pulmonary rehab. Will look into local locations for him and have MD send order. SW will f/u with pt re discussed above. CALOS Stubbs-S Cystic Fibrosis Social Work V. [phone] P. [phone] documented in this encounterOhiohealth Mansfield Hospital12-13-2023 NoteHNO ID: [id number] Author: Orquidea Bella RRT Service: ? Author Type: Registered Resp Therapist Type: Progress Notes Filed: 11/12/2023 3:48 PM Note Text: PULM FUNCTION SMARTBLOCK: Provider: She Pete, Spirometry: [facility]-2023 [facility]12[facility] History of Present illness Narrative* Zaida Santos RN - 11/07/2023 11:05 AM EST CF Pre-Clinic Checklist PRE-TRANSPLANT Last CF clinic visit date: 09/24/[address] Pete Microbiology: b. Cepacia complex; MRSA Lab Results Component Value Date CULT Negative for anaerobes. 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, Trichosporonosis, Aspergillus ---Pancreatic insufficiency - on enzymes with Creon ---CFRD - follows with endocrinology ---CF Liver disease - complicated by portal hypertension, esophageal varices ---Chronic sinusitis ---Anxiety/Depression Exacerbations in the last 12 months: -Hospital Admit: 07/02/23-07/29/23 treated with Vancomycin through 07/06, Minocycline through 07/22, and Meropenum through 07/24 (not discharged home on any IV abx) -Hospital Admit: 03/07/23-03/11/23 -> discharged on Home IV abx Vanc and Larisa through 04/01/23 FEV1%: 33% on 09/24/23 FEV1%trend: 36% on 07/24/23 ; 23% on 07/17/23 ; 23% on 07/10/23 ; 23% on 07/02/23 BMI: 15.5 kg/m BMI Trend: RD ANNUAL VISIT Needed: Completed on 07/02/23 RT ANNUAL VISIT Needed: Completed on 03/19/23 ANNUAL VISIT Needed: Completed on 07/02/23 Mental health screen: NEEDS ANNUAL Labs Needed: Completed 03/08/23 Last OGTT/CFRD: +CFRD -> Follows with [facility] Dexa: Completed on 09/24/23 -> Lowest T-score is 3.1 in left femoral neck T/Z = > -1.0 - every 5 years T/Z = -1.0 to -2.0 - every 2-4 years T/Z = < -2.0 - every 1 year Colonoscopy (age > 35) N/A WNL-every 5 years Abnormal-every 3 or sooner Abdominal Ultra Sound: RUQ US last completed on 07/09/23 -> Cirrhotic liver morphology with hepatic steatosis. (Every 2 years if LFT's normal) Chronic Medications (List why If not on medication): CFTR modulators: Trikafta - was on adjusted dosing due to Cirrhosis - reports taking 2 orange pillson even days of the month and 1 orange pill on odd days of the month, No blue pills Pulmozyme: once daily Hypertonic saline: has at home but not currently using Chronic Azithromycin (anti-inflammatory): No (on hold due to prior NTM) Inhaled Abx: [place] Ibuprofen: No Referral to Endo: follows with Dona Barrera Referral to Transplant: Lung and liver discussed extensively with patient during July 2023 hospital admission - pt eventually deferred at hospital discharge EPIC/Phone Messages since last visit: -10/17/23 : SHIVA braga with complaints of hemoptysis - was prescribed TXA -09/30/23 : g asking for disability letter -09/29/23 : Dr. Pete sent message to patient regarding his bone density results - instructed to f/u with Stephie Ramirez in Endo Plan for visit: - Perdido ordered and scheduled for correct floor - F/u regarding DEXA completed on 09/24/23 - did he arrange f/u as instructed? Lowest T-score is -3.1 in left femoral neck - Encourage patient to make a f/u visit with hepatology? (Has declined recommendations for lung/liver transplant) - Needs Mental Health Screening documented in this encounterOhiohealth Mansfield Hospital11-03-2023 Miscellaneous Notes* Telephone Encounter - She Pete DO - 10/03/2023 11:29 AM EDT Called and spoke with Vero, pharmacist at [facility]. Explained his adjusted dose due to liver disease. Taking 2 orange pills on even days of the month and 1 orange pill on odd days of the month, No bluepills She Pete DO October 03, 2023 11:31 AM * Telephone Encounter - Daniel Goel - 10/03/2023 10:37 AM EDT Received call from [employer] with [facility] requesting clarification on the directions on the patient's (LUIZA). Is it: Alternate between 2(starting 07/30) and 1 tablet every morning , hold evening dose or Take 2 combination tablets in the morning and take 1 Ivacaftor tablet in the evening. DO NOT crush,chew, or open. Class: Med Update Please call [phone] option 1, option 6 or fax [phone] documented in this encounterOhiohealth Mansfield Hospital10-25-2023 History of Present illness Narrative* Sydni Duarte RT(R) - 09/24/2023 9:30 AM EDT Radiology Service Progress Note PATIENT NAME: Jay Barber DATE OF SERVICE: September 24, 2023 TIME: 9:15 AM PATIENT IDENTITY VERIFICATION COMPLETED USING TWO (2) IDENTIFIERS: Name and Date of confirmedby patient verbally and Name and Date of confirmed by identification band. FALL SCREENING: Has the patient had 2 falls in the last year or 1 fall with injury or currently using an Ambulatory Assistive Device (Walker, Cane, Wheelchair, Crutches, etc.)? No PATIENT GENDER DATA: Male PATIENT RELEVANT IMPLANT DATA REVIEWED: Not Applicable RADIOLOGY DEPARTMENT: Bone Density PERIPHERAL IV DATA: Not applicable SIGNED BY: LUIS ALFREDO Griggs) September 24, 2023 9:15 AM documented in this encounterOhiohealth Mansfield Hospital10-25-2023 NoteHNO ID: [id number] Author: Sydni Duarte RT(R) Service: Radiology Author Type: Technologist Type: Progress Notes Filed: 09/24/2023 9:15 AM Note Text: Radiology Service Progress Note PATIENT NAME: Jay Barber DATE OF SERVICE: September 24, 2023 TIME: 9:15 AM PATIENT IDENTITY VERIFICATION COMPLETED USING TWO (2) IDENTIFIERS: Name and Date of confirmed by patient verbally and Name and Date of confirmed by identification band. FALL SCREENING: Has the patient had 2 falls in the last year or 1 fall with injury or currently using an Ambulatory Assistive Device (Walker, Cane, Wheelchair, Crutches, etc.)? No PATIENT GENDER DATA: Male PATIENT RELEVANT IMPLANT DATA REVIEWED: Not Applicable RADIOLOGY DEPARTMENT: Bone Density PERIPHERAL IV DATA: Not applicable SIGNED BY: Sydni Duarte RT(R) September 24, 2023 9:15 [facility]10-25-2023 NoteHNO ID: [id number] Author: Padma Helm, YARD COORDINATOR Service: ? Author Type: Registered Resp Therapist Type: Progress Notes Filed: 09/24/2023 8:41 AM Note Text: PULM FUNCTION SMARTBLOCK: Provider: She Pete DO Spirometry: [address] [place], [place] [address]10-25-2023 History of Present illness Narrative* She Pete DO - 09/24/2023 8:00 AM EDT Images from the original note were not included. PULMONARY MEDICINE CYSTIC FIBROSIS FOLLOW UP Patient Name: Jay Barber PRIMARY CARE PHYSICIAN: No primary care provider on file. Portions of this note were taken from the note dated 08/06/[address] 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 Ramirez on 08/11/23 - continued on current regimen, last HbA1C - 6.9% - refilled trikafta, pulmozyme - [facility] to [facility] - refilled enzymes and duonebs to [facility] locally - still needs to see RT, RD and SW - needs hepatology follow-up as well - stopped torsemide a couple weeks ago - no edema on exam today but will watch his abd/legs and restart if needed RTC: 11/12/[address] Dunia Pete, DO September 24, 2023 1. CYSTIC FIBROSIS PULMONARY DISEASE AND BRONCHIECTASIS Symptoms are stable FEV1% predicted today: 33% (1.03L ) - slightly lower than 1.15L last visit but improved compared tolast spirometry over the last year Complicated by chronic respiratory tract infection with PsA, Burkholderia vietnamiensis (sent to [facility] in 2019), MRSA Chronic maintenance regimen: CFTR modulators: Trikafta - was on adjusted dosing due to Cirrhosis - reports taking 2 orange pillson even days of the month and 1 orange pill on odd days of the month, No blue pills Pulmozyme: once daily Hypertonic saline: has at home but not currently using Chronic Azithromycin (anti-inflammatory): No (on hold due to prior NTM) Inhaled Abx: [place] Ibuprofen: No Nebulized short-acting bronchodilator: albuterol as needed Nebulized other: PEP device: has acapella VEST: not currently using ICS: Advair 500/50mg 2 puffs BID Oral prednisone: as needed, not currently on Pulm rehab: not currently using Supplemental oxygen use: no Exercise and minutes per week: brisk walking/ lifting, 2 hrs per week Recommended ORDER OF AIRWAY CLEARANCE: Albuterol, Hypertonic, VEST (with hypertonic), pulmozyme, Inhaled antibiotics, Inhaled corticosteroids ADVANCED LUNG DISEASE (criteria: FEV1 < 40) and CHRONIC HYPOXEMIC RESPIRATORY FAILURE ---Supplemental oxygen: no ---BIPAP: no ---Pulmonary rehab: no ---ECHO: 07/04/23- EF 59%, RV size and function normal ---Weight: BMI of 15.5 - 87lbs ---Discussed lung transplantation: yes, not interested at this time as he is feeling okay ---Referred for lung transplantation: not at this time per patient preference CHRONIC RESPIRATORY TRACT PSEUDOMONAS AND BURKHOLDERIA ([place]iensis) ---Mucoid phenotype ---Inhaled antibiotic: previously used cayston montly alternating with MUKESH podhaler - not currently doing, but started Cay[place] in December 2022. Does have the altera device --> not doing it consistently ---Not on chronic azithromycin due to NTM ---Oral antibiotic that patient responds to: Cipro and Bactrim ---IV abx that patient responds to: IV TOBRAMYCIN, meropenem, vancomycin CYSTIC FIBROSIS PANCREATIC INSUFFICIENCY ---No generic enzymes, ever. ---Creon 36,000, 3-4 BEFORE meals AND 2-3 BEFORE snacks ---Fat soluble supplemental vitamins: Vitamin K 40 mcg daily ---CF Vitamins: MVI 2 daily ---Vitamin D2 50,000 weekly CYSTIC FIBROSIS LIVER DISEASE --- cirrhosis complicated by esophageal varices, portal hypertension --- Actigall restarted during last hospitalization - 300mg BID --- last RUQ US in 07/2023 --- last EGD 07/2023 --- needs hepatology follow-up --- currently off diuretics CHRONIC PANSINUSITIS Sinuses can be a reservoir of bacterial infection and contribute to recurrent lower respiratory tract infections, especially in patients infected with Pseudomonas Symptoms are worse Nasal polyps - unknown? ---Antihistamine: zyrtec ---Nasal steroid: flonase ---Montelukast: added but discussed possible changes with mood ---If not improving with restart sinus medications - will obtain CT sinus and referral to ENT - would like to hold off on this for now given most likely related to change in weather ---Referral to ENT for surgical eval. Appt [phone]. Severe protein calorie malnutrition - continue ensures - needs to see Fernando Prior Invasive Pulmonary Aspergillus infection/Trichosporonosis - treated with voriconazole by ID cosmetic consultant Dr. Burke France in 2019 for 1 year Depression/Anxiety ---continues on celexa 20 mg PO daily - refilled 11/20/2022 and restarted --- needs social work HTN ---on coreg 6.25mg BID Proteinuria --- previously seen by Dr. Ahuja in nephrology CYSTIC FIBROSIS RELATED DIABETES ---The standard medical therapy for CFRD is subcutaneous insulin ---Patient currently on insulin therapy ---Self monitored blood glucose 3 times per day ---Patient has a CGM: yes - screening and monitoring ---Most recent hgA1c noted. ---Had ophthalmology retinal exam: needs to be done ---Urine albumin/creatinine ratio done: needs to be done ---Following with Dr. Francis Ramirez at [facility] ANNUAL SCREENING: ANNUAL LABS: 07/2023 OGTT: NA - CFRD EYE EXAM TO CHECK FOR CATARACTS: DEXA: NEEDS - scheduled today LIVER US/Fibroscan: had RUQ US in the hospital - cirrhotic liver - needs hepatology follow-up COLONOSCOPY: Start screening at age 40 years (re-screen every 5 years) in CF due to increased risk of GI carcinoma: INTERESTED IN RESEARCH: YES Was the patient screened for barriers to adherence using the Daily Care Check- In? NO Immunization History Administered Date(s) Administered COVID-19 original vaccine, age 12+ yr, monovalent ([employer] - PURPLE TOP) 12/24/2020 01/21/2021 12/05/2021 COVID-19 vaccine, age 12+ yr, bivalent ([employer]-BIONTECH) 12/04/2022 Haemophilus influenzae b (HbOC) vaccine, 4-dose series (HIBTITER) 1993 01/11/1994 05/20/1994 02/13/1995 Haemophilus influenzae b (Hib PRP-T) vaccine, 4-dose series (ACTHIB, HIBERIX) 07/16/1995 diphtheria tetanus pertussis (DTP) vaccine 1993 01/11/1994 05/20/1994 02/13/1995 07/16/1995 07/18/1999 hepatitis B (HepB) vaccine, 3-dose series, age 0 yr - 19 yr (ENGERIX B-PEDS, RECOMBIVAX HB-PEDS) 1993 1993 05/20/1994 influenza (IIV3) vaccine, trivalent (AFLURIA, FLULAVAL, FLUVIRIN, FLUZONE) 10/23/2011 09/13/2013 11/05/2018 influenza (IIV4) vaccine, age 6 mo - 64 yr, quadrivalent (AFLURIA, FLULAVAL, FLUZONE) 12/04/2022 influenza (IIV4) vaccine, age 6 mo - 64 yr, quadrivalent, PF (AFLURIA, FLUARIX, FLULAVAL, FLUZONE) 09/02/2016 10/11/2019 influenza (IIV4) vaccine, quadrivalent (AFLURIA, FLULAVAL, FLUZONE) 11/05/2018 influenza vaccine, whole virus 10/03/2010 measles mumps rubella (MMR) vaccine (M-M-R II, PRIORIX) 02/13/1995 06/13/1999 meningococcal (MenACWY-D) vaccine, quadrivalent (MENACTRA) 05/27/2012 meningococcal (MenACYW) vaccine, quadrivalent, unspecified formulation 05/27/2012 novel influenza (B0M9-18) vaccine, PF 10/19/2009 pneumococcal (PCV13) vaccine, 13 valent (PREVNAR 13) 05/26/2019 pneumococcal (PCV7) vaccine, 7 valent (PREVNAR 7) 01/08/2006 pneumococcal (PPV23) vaccine, 23 valent (PNEUMOVAX 23) 10/23/2011 07/28/2019 poliovirus (IPV) vaccine, inactivated (IPOL) 1993 01/11/1994 05/20/1994 02/13/1995 tetanus diphtheria pertussis (Tdap) vaccine, age 7+ yr (ADACEL, BOOSTRIX) 05/29/2012 CHIEF COMPLAINT: Cystic Fibrosis HISTORY OF PRESENT ILLNESS: Jay Barber is a 28 year old male, here for follow-up of Cystic Fibrosis Courses of oral abx since last visit:0 Courses of IV abx since last visit:0 Prednisone use since last visit: 0 ED visits since last visit: 0 Hospitalizations since last visit: 0 INTERVAL HISTORY Since last seen in clinic with Dr. Kilgore - he has been doing well. No recent exacerbations. Still at home with his parents. Slightly more cough at night - dry, non-productive. Slightly worse sinus congestion - plugged and snotty, doesn't feel like infection. Thinks its related to change in weather, nothing really improves it other than time - has trialed increasing flonase and zyrtec without change. No new reflux symptoms. Reports bowel movements are okay, daily. Appetite fluctuates some days really hungry, some days not as much. No issues with lower extremity swelling - stopped torsemide about a week or so before last labs - 09/10/23, no pain or swelling noted, no abdominal swelling. 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) Transfusion history Type 1 diabetes mellitus with hyperglycemia (HCC) PAST SURGICAL HISTORY Procedure Laterality Date PAST SURGICAL HISTORY OF splenal renal shunt to treat portal hypertension PICC LINE INSERT/CONSULT 03/08/2023 FAMILY HISTORY Problem Relation Age of Onset Hypertension Mother Breast Cancer Other other (hypercholesterolemia) Other other (heart disease in female family member before age 65) Other Social History Tobacco Use Smoking status: Never Smokeless tobacco: Never Vaping Use Vaping Use: Never used Substance Use Topics Alcohol use: No Drug use: No ALLERGIES: ALLERGIES Allergen Reactions Vancomycin Itching, Rash Gets Red Man syndrome and pt if not premedicated with benadryl prior to Vancomycin infusions. Cefoxitin Rash, Other: See Comments Severe abdominal pain, diarrhea, rash Severe Abdominal Pains Linezolid Rash, GI Upset CURRENT OUTPATIENT MEDICATIONS: Vit A,C,J-Kexw-Jjpzfc (PRESERVISION AREDS) 4,296 mcg-226 mg-90 mg cap Take 1 capsule by mouth twicedaily. Take with food. Blood-Glucose Meter monitoring kit For monitoring sugars 3x/day Lancets lancets Use as instructed 3x/day blood sugar diagnostic (BLOOD GLUCOSE TEST) test strip 3x/day albuterol HFA (VENTOLIN HFA) 90 mcg/actuation inhaler inhale 2 puffs by mouth as directed every 4 hours if needed for wheezing or shortness of breath VITAMIN D2 1,250 mcg (50,000 unit) capsule Take 1 capsule by mouth two times a week. torsemide (DEMADEX) 10 mg tablet Take 1 tablet by mouth once daily. fluticasone (FLONASE) 50 mcg/actuation nasal spray Use 1-2 Sprays in each nostril once daily. fluticasone (FLOVENT) 220 mcg/actuation inhaler Inhale 1 Puff as instructed twice daily. Blood-Glucose Meter,Continuous (DEXCOM G7 CODER OPERATOR) [facility] For monitoring sugars insulin lispro (HUMALOG KWIKPEN INSULIN) 100 unit/mL Dose varies units with meals and sliding scale, using about 30 total units a day Insulin Calvin, Disposable, (BD ULTRA-FINE YARON PEN NEEDLE) 32 gauge x 5/32 5x/day glucagon (BAQSIMI) 3 mg/actuation nasal spray Use 1 Calvin in the nose as needed. May repeat after 15 minutes using a new device if there is no response for severe low blood sugar event insulin glargine (BASAGLAR KWIKPEN U-100 INSULIN) 100 unit/mL (3 mL) Inject 8 units subcutaneously at bedtime aztreonam lysine (CAYSTON) 75 mg/mL nebulizer solution Inhale 1 mL as instructed three times daily.28 days on 28 days off Send altera nebulizer with each shipment cetirizine (ZYRTEC) 5 mg tablet Take 10 mg by mouth once daily. carvedilol (COREG) 6.25 mg tablet Take 1 tablet by mouth twice daily with meals. montelukast (SINGULAIR) 10 mg tablet Take 1 tablet by mouth daily at bedtime. ursodiol (ACTIGALL) 300 mg capsule Take 300 mg by mouth twice daily. Nebulizers 1 Each three times daily. fluticasone-salmeterol (ADVAIR) 500-50 mcg/dose dsdv Inhale 1 Puff as instructed twice daily. CREON 36,000-114,000- 180,000 unit delayed release capsule Take 3 capsules by mouth three times a day with meals. 3 with snacks dornase christi (PULMOZYME) 1 mg/mL nebulizer solution Inhale 2.5 mL as instructed once daily. elexacaftor 100 mg-tezacaftor 50 mg-ivacaftor 75 mg(d)/ivacaftor 150 mg(n) tablets (TRIKAFTA) Alternate between 2(starting 07/30) and 1 tablet every morning , hold evening dose ipratropium-albuterol (DUONEB) 0.5 mg-3 mg(2.5 mg base)/3 mL nebu Inhale 3 mL as instructed every 4hours as needed for wheezing/shortness of breath. Blood-Glucose Sensor (MobGoldCOM G7 SENSOR) jean-paul One sensor every 10 days Nebulizers 1 Each three times daily. REVIEW OF SYSTEMS PAIN ASSESSMENT: Negative for pain, history of chronic pain, or current treatment for a chronic pain condition. GENERAL: No weight loss, malaise or fevers HEENT: Negative for frequent or significant headaches, No changes in hearing or vision, no nose bleeds or other nasal problems NECK: Negative for lumps, goiter, pain and significant neck swelling RESPIRATORY: Negative for cough, hemoptysis, wheezing, COPD, dyspnea or shortness of breath CARDIOVASCULAR: Negative for chest pain, leg swelling, hypertension, CHF or palpitations GI: No nausea, vomiting, or diarrhea : No history of dysuria, frequency or incontinence MUSCULOSKELETAL: Negative for joint pain or swelling, back pain or muscle pain SKIN: Negative for lesions, rash, and itching PSYCH: Negative for sleep disturbance, mood disorder and recent psychosocial stressors ENDOCRINE: Negative for cold or heat intolerance, polyuria, polydipsia and goiter NEURO: No history of headaches, syncope, paralysis, seizures or tremors PHYSICAL EXAMINATION: VITAL SIGNS: BP 100/60 Pulse 106 Temp (Src) 98.6 (Temporal) Ht 5' 3 (1.60m) Wt 87 lb 8 oz (39.7kg) SpO2 95% BMI 15.50 kg/(m^2). Last 5 Encounter Wt Readings: Date: Wt: 08/18/2023 37.6 kg (83 lb) 08/11/2023 40 kg (88 lb 1.6 oz) 07/02/2023 39.5 kg (87 lb 1.3 oz) 07/01/2023 35.4 kg (78 lb) 06/04/2023 40.5 kg (89 lb 4.8 oz) GENERAL APPEARANCE: He Is well appearing, alert, in no acute distress, well-hydrated, INTEGUMENTARY: skin color, texture, turgor normal, no rashes or lesions; EYES: Anicteric sclera. Pupils are equally round and reactive to light. Extraocular movements are intact. ENT: nasal erthema; mild congestion of B turbinates; +cobblestoning. mild HEME/LYMPH: Supple neck, no adenopathy; thyroid symmetric, normal size, no bruits RESPIRATORY: Lungs clear to auscultation. No wheezing, rhonchi, rales, Percussion normal, good diaphragmatic excursion, Cough, CARDIOVASCULAR: No edema. RRR without murmur, gallop, or rubs. No ectopy GI: Normal abdominal exam, Abdomen soft, non-tender. Bowel sounds normal. No masses, organomegaly MUSCULOSKELETAL: 1+ clubbing B; No arthritis. No deformities or cyanosis. Gait normal. PSYCH:no signs of depression or anxiety Neuro: Non-focal. Sensation grossly intact. DATA: Diagnostic tests reviewed for today's visit were personally reviewed by me: Sputum culture results and Most recent labs and imaging results. Most recent EKG LAST LAB RESULTS: ---Reviewed in [facility] CBC with diff: WBC 8.00 09/10/2023 RBC 3.22 09/10/2023 Hemoglobin 10.0 09/10/2023 Hematocrit 28.8 09/10/2023 MCV 89.4 09/10/2023 MCH 31.1 09/10/2023 MCHC 34.7 09/10/2023 RDW-CV 14.3 09/10/2023 Platelet Count 185 09/10/2023 MPV 9.2 09/10/2023 Neut% 66.9 09/10/2023 Lymph% 20.1 09/10/2023 [place]% 8.1 09/10/2023 Eosin% 16.6 11/26/2022 Baso% 0.8 09/10/2023 Abs Neut (ANC) 5.36 09/10/2023 Abs [place] 0.65 09/10/2023 Abs Eosin 0.30 09/10/2023 Abs Baso 0.06 09/10/2023 Glucose (mg/dL) Date Value 09/10/2023 197 12/08/2015 113 Potassium Date Value 09/10/2023 4.7 mmol/L 11/26/2022 4.4 Sodium Date Value 09/10/2023 132 mmol/L 12/08/2015 139 mEq/L Chloride Date Value 09/10/2023 101 mmol/L 12/08/2015 102 mEq/L CO2 Date Value 09/10/2023 25 mmol/L 12/08/2015 31 mEq/L Creatinine Date Value 09/10/2023 0.86 mg/dL 11/26/2022 1.16 MG/DL BUN (mg/dL) Date Value 09/10/2023 24 12/08/2015 16 Anion Gap Date Value 09/10/2023 6 mmol/L 12/08/2015 11 Calcium (mg/dL) Date Value 12/08/2015 9.3 Calcium, Total (mg/dL) Date Value 09/10/2023 8.9 Protein, Total (g/dL) Date Value 09/10/2023 8.2 12/08/2015 9.5 Albumin (g/dL) Date Value 09/10/2023 2.8 12/08/2015 3.4 Bilirubin, Total Date Value 09/10/2023 0.8 mg/dL 11/26/2022 0.80 Alkaline Phosphatase Date Value 09/10/2023 841 U/L 11/26/2022 1,147 AST Date Value 09/10/2023 51 U/L 11/26/2022 145 ALT Date Value 09/10/2023 38 U/L 11/26/2022 145 Vitamin D 25 Hydroxy (ng/mL) Date Value 07/12/2023 18.8 ] Hemoglobin A1C (%) Date Value 07/03/2023 6.9 03/08/2023 7.7 11/05/2022 8.4 2022 8.6 02/12/2021 8.8 12/08/2015 8.3 Hemoglobin A1c (%) Date Value 05/22/2021 7.4 09/11/2020 6.4 12/30/2019 6.9 Hemoglobin A1C (POCT) (%) Date Value 12/24/2021 7.5 09/10/2021 7.4 05/22/2021 7.4 09/11/2020 6.4 HGBA1C (%) Date Value 07/30/2019 6.5 04/30/2019 6.6 01/25/2019 8.1 09/10/2018 8.2 05/29/2018 10.3 06/25/2016 7.0 SPIROMETRY: Reviewed in [facility] MICROBIOLOGY: Reviewed MICROBIOLOGY SNAPSHOT Written and verbal health teaching given to patient, patient verbalizes understanding and agrees with treatment plan. I spent a total of 50 minutes on the date of the service which included preparing to see the patient, [id number] patient care, completing clinical documentation, obtaining and/or reviewing separately obtained history, performing a medically appropriate examination, counseling and educating the pat ient/family/caregiver, ordering medications, tests, or procedures, communicating with other HCPs (not separately reported), independently interpreting results (not separately reported), communicatingresults to the patient/family/caregiver, and care coordination (not separately reported). Electronically Signed: She Pete DO September 24, 2023 documented in this encounterOhiohealth Mansfield [facility]10-25-2023 [facility] History of Present illness Narrative* Zaida Santos RN - 09/17/2023 3:30 PM EDT CF Pre-Clinic Checklist PRE-TRANSPLANT Last CF clinic visit date: 08/06/[address] Kilgore Microbiology: b. Cepacia complex; MRSA Lab Results Component Value Date CULT Negative for anaerobes. 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, Trichosporonosis, Aspergillus ---Pancreatic insufficiency - on enzymes with Creon ---CFRD - follows with endocrinology ---CF Liver disease - complicated by portal hypertension, esophageal varices ---Chronic sinusitis ---Anxiety/Depression Exacerbations in the last 12 months: -Hospital Admit: 07/02/23-07/29/23 treated with Vancomycin through 07/06, Minocycline through 07/22, and Meropenum through 07/24 (not discharged home on any IV abx) -Hospital Admit: 03/07/23-03/11/23 -> discharged on Home IV abx Vanc and Larisa through 04/01/23 FEV1%: 36% on 07/24/23; FEV1%trend: 23% on 07/17/23 ; 23% on 07/10/23 ; 23% on 07/02/23 BMI: 15.08 kg/m BMI Trend: RD ANNUAL VISIT Needed: Completed on 07/02/23 RT ANNUAL VISIT Needed: NEEDS ANNUAL VISIT Needed: Completed on 07/02/23 Mental health screen: NEEDS ANNUAL Labs Needed: Completed 03/08/23 Last OGTT/CFRD: +CFRD -> Follows with [facility] Dexa: NEEDS - last completed on 01/25/2019 T/Z = > -1.0 - every 5 years T/Z = -1.0 to -2.0 - every 2-4 years T/Z = < -2.0 - every 1 year Colonoscopy (age > 35) N/A WNL-every 5 years Abnormal-every 3 or sooner Abdominal Ultra Sound: NEEDS Fibroscan - RUQ US last completed on 07/27/22 -> CIRRHOTIC LIVER MORPHOLOGY. NO FOCAL HEPATIC LESION; FATTY REPLACEMENT OF THE PANCREAS COMPATIBLE WITH UNDERLYING CYSTIC FIBROSIS; MILD SPLENOMEGALY. (Every 2 years if LFT's normal) Chronic Medications (List why If not on medication): CFTR modulators: Trikafta liver dosing Pulmozyme: Daily Hypertonic saline: not using but has at home Chronic Azithromycin (anti-inflammatory): On hold due to NTM Inhaled Abx: No Referral to Endo: follows with Dona Barrera Referral to Transplant: Lung and liver discussed extensively with patient during July 2023 hospital admission - pt eventually deferred at hospital discharge EPIC/Phone Messages since last visit: None Other issues: Plan for visit: - [facility] office visit - Perdido ordered and scheduled - Dexa ordered and scheduled for same day - Needs fibroscan ordered and scheduled - Needs annual RT visit during next [facility] [place] visit - Needs Mental Health Screening during next [facility] [place] visit documented in this encounterOhio[facility]23 Miscellaneous Notes* Telephone Encounter - Sally Schneider APRN.CNP - 08/21/2023 12:35 PM EDT Called patient , his potassium was elevated on labs from 08/18. He reports feeling pretty good. No issue with swelling or abdominal fluid He has been taking torsemide daily still Plan Kayexalate X 1 dose He will get labs tomorrow repeat CMP and CBC/diff Sally Schneider APRN.CNP documented in this encounterOhiohealth [facility]09-21-2023 Miscellaneous Notes* Telephone Encounter - Stacie Fuentes LPN - 08/21/2023 8:33 AM EDT Patient notified and verbalized understanding. Stacie Fuentes LPN * Telephone Encounter - Fredo Moreno DO - 08/20/2023 5:17 PM EDT Can let him know the lab testing show that he is slightly low on iron. I would recommend trying OTCferrous sulfate 325 mg 1 tablet every other day. Fredo Moreno DO documented in this encounterOhiohealth Mansfield [facility]09-18-2023 History of Present illness Narrative* Fredo Moreno DO - 08/18/2023 11:58 AM EDT Patient referred for anemia. The impression and plan will be communicated by way of the shared electronic record or faxed under separate cover letter. 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 Recently admitted for pulmonary exacerbation 07/02 through 07/29. During the hospitalization he was initially treated in the ICU. There was an episode of dark stools and he was found to be anemic. Hemoglobin had declined to 6.5 g/dL. He received a transfusion hematology was consulted inpatient. Impression was that of multifactorial anemia with chronic disease predominating. More fatigued last few weeks since discharge. More nasal/sinus congestion. No shaking chills. Subjectively doesn't feel he has a fever. No night sweats. HERNÁNDEZ improved from time of discharge. Stools normal in color. No black or acholic stools. 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) History of transfusion Hypertension Liver disease care home (current) use of insulin (HCC) Transfusion history Type 1 diabetes mellitus with hyperglycemia (HCC) PAST SURGICAL HISTORY Procedure Laterality Date PAST SURGICAL HISTORY OF splenal renal shunt to treat portal hypertension PICC LINE INSERT/CONSULT 03/08/2023 ALLERGIES Allergen Reactions Vancomycin Itching, Rash Gets Red Man syndrome and pt if not premedicated with benadryl prior to Vancomycin infusions. Cefoxitin Rash, Other: See Comments Severe abdominal pain, diarrhea, rash Severe Abdominal Pains Linezolid Rash, GI Upset Current Outpatient Medications Medication Sig albuterol HFA (VENTOLIN HFA) 90 mcg/actuation inhaler inhale 2 puffs by mouth as directed every 4 hours if needed for wheezing or shortness of breath VITAMIN D2 1,250 mcg (50,000 unit) capsule Take 1 capsule by mouth two times a week. elexacaftor 100 mg-tezacaftor 50 mg-ivacaftor 75 mg(d)/ivacaftor 150 mg(n) tablets (TRIKAFTA) Alternate between 2(starting 07/30) and 1 tablet every morning , hold evening dose torsemide (DEMADEX) 10 mg tablet Take 1 tablet by mouth once daily. fluticasone (FLONASE) 50 mcg/actuation nasal spray Use 1-2 Sprays in each nostril once daily. fluticasone (FLOVENT) 220 mcg/actuation inhaler Inhale 1 Puff as instructed twice daily. insulin lispro (HUMALOG KWIKPEN INSULIN) 100 unit/mL Dose varies units with meals and sliding scale, using about 30 total units a day glucagon (BAQSIMI) 3 mg/actuation nasal spray Use 1 Calvin in the nose as needed. May repeat after 15 minutes using a new device if there is no response for severe low blood sugar event insulin glargine (BASAGLAR KWIKPEN U-100 INSULIN) 100 unit/mL (3 mL) Inject 8 units subcutaneously at bedtime aztreonam lysine (CAYSTON) 75 mg/mL nebulizer solution Inhale 1 mL as instructed three times daily.28 days on 28 days off Send altera nebulizer with each shipment dornase christi (PULMOZYME) 1 mg/mL nebulizer solution Inhale 2.5 mL as instructed once daily. cetirizine (ZYRTEC) 5 mg tablet Take 10 mg by mouth once daily. carvedilol (COREG) 6.25 mg tablet Take 1 tablet by mouth twice daily with meals. montelukast (SINGULAIR) 10 mg tablet Take 1 tablet by mouth daily at bedtime. ursodiol (ACTIGALL) 300 mg capsule Take 300 mg by mouth twice daily. fluticasone-salmeterol (ADVAIR) 500-50 mcg/dose dsdv Inhale 1 Puff as instructed twice daily. CREON 36,000-114,000- 180,000 unit capsule Take 3 capsules by mouth. With every meal Blood-Glucose Meter monitoring kit For monitoring sugars 3x/day Lancets lancets Use as instructed 3x/day blood sugar diagnostic (BLOOD GLUCOSE TEST) test strip 3x/day Blood-Glucose Meter,Continuous (DEXCOM G7 CODER OPERATOR) misc For monitoring sugars Blood-Glucose Sensor (DEXCOM G7 SENSOR) jean-paul One sensor every 10 days Insulin Calvin, Disposable, (BD ULTRA-FINE YARON PEN NEEDLE) 32 gauge x 5/32 5x/day Nebulizers 1 Each three times daily. Nebulizers 1 Each three times daily. No current facility-administered medications for this visit. Social History Tobacco Use Smoking status: Never Smokeless tobacco: Never Vaping Use Vaping Use: Never used Substance Use Topics Alcohol use: No Drug use: No Family History Problem Relation Age of Onset Hypertension Mother Breast Cancer Other other (hypercholesterolemia) Other other (heart disease in female family member before age 65) Other ROS: Constitutional: See above. Neuro: No recent MTZ, vertigo, dizziness or imbalance. HEENT: No recent change in voice, vision or hearing. Resp: See HPI. CVS: No exertional chest pain, PND or orthopnea. No extremity swelling/edema. No symptoms of claudication. No painful or tender varicose veins. GI:No n/v. No abdominal pain, bloating or distension. : No dysuria or gross hematuria. Endo: No hot flashes. No polyuria or polydipsia. No heat or cold intolerance. Musculoskeletal: No bone, back, joint and muscular pain. Derm: No current rash. Heme: No unusual bleeding and unexplained bruising. Psych: Normal mood. PHYSICAL EXAM: Vitals: Blood pressure 147/96, pulse (!) 125, temperature (!) 38.1 C (100.6 F), height 158 cm (5' 2.21 ), weight 37.6 kg (83 lb), SpO2 97 %. Thin and well-appearing and in no acute distress. EYES: Sclerae are anicteric bilaterally. ENT: Oral mucosa is unremarkable. There is no sign of thrush or mucositis. No angular chelitis or macroglossia. LYMPHATIC: There is no palpable cervical, supraclavicular or axillary adenopathy. RESPIRATORY: Vesicular breath sounds are appreciated in all gustafson. Somewhat reduced in the left upper lung field. No wheeze or rhonchi. CARDIOVASCULAR: Rhythm is regular. ABDOMEN: The abdomen is nondistended. No splenomegaly or hepatomegaly. No tenderness. Extremities: No swelling or edema. SKIN: No jaundice. LABS: Component Latest Ref Rng & Units 07/24/2023 07/26/2023 07/27/2023 07/29/2023 08/01/2023 08/07/2023 WBC 3.70 - 11.00 k/uL 4.28 5.62 6.93 RBC 4.20 - 6.00 m/uL 2.49 (L) 2.49 (L) 2.50 (L) Hemoglobin 13.0 - 17.0 g/dL 7.5 (L) 7.5 (L) 7.7 (L) Hematocrit 39.0 - 51.0 % 23.1 (L) 23.0 (L) 24.6 (L) MCV 80.0 - 100.0 fL 92.8 92.4 98.4 MCH 26.0 - 34.0 pg 30.1 30.1 30.8 MCHC 30.5 - 36.0 g/dL 32.5 32.6 31.3 RDW-CV 11.5 - 15.0 % 18.5 (H) 18.3 (H) 18.6 (H) Platelet Count 150 - 400 k/uL 186 251 365 MPV 9.0 - 12.7 fL 11.2 10.5 10.4 Neut% % 53.9 56.5 Abs Neut (ANC) 1.45 - 7.50 k/uL 2.30 3.92 Lymph% % 28.0 21.9 Abs Lymph 1.00 - 4.00 k/uL 1.20 1.52 [place]% % 8.6 11.3 Abs [place] <0.87 k/uL 0.37 0.78 Eosin% % 8.6 8.7 Abs Eosin <0.46 k/uL 0.37 0.60 (H) Baso% % 0.7 1.0 Abs Baso <0.11 k/uL 0.03 0.07 Immature Gran % % 0.2 0.6 IMMATURE GRANS (ABS) <0.10 k/uL <0.03 0.04 NRBC /100 WBC 0.0 0.0 Absolute nRBC <0.01 k/uL <0.01 <0.01 <0.01 DTYPE Auto Auto Protein, Total 6.3 - 8.0 g/dL 8.6 (H) Albumin 3.9 - 4.9 g/dL 2.7 (L) Calcium 8.5 - 10.2 mg/dL 9.0 Bilirubin, Total 0.2 - 1.3 mg/dL 1.3 Alkaline Phosphatase 38 - 113 U/L 627 (H) AST 14 - 40 U/L 87 (H) ALT 10 - 54 U/L 67 (H) Glucose 74 - 99 mg/dL 116 (H) BUN 9 - 24 mg/dL 23 Creatinine 0.73 - 1.22 mg/dL 1.13 Sodium 136 - 144 mmol/L 130 (L) Potassium 3.7 - 5.1 mmol/L 5.1 Chloride 97 - 105 mmol/L 101 CO2 22 - 30 mmol/L 23 Anion Gap 9 - 18 mmol/L 6 (L) eGFR >=60 mL/min/1.73m 90 Iron 41 - 186 ug/dL 48 TIBC 232 - 386 ug/dL 121 (L) Transferrin Saturation 15.0 - 57.0 % 39.7 Vitamin E-alpha 6.0 - 23.0 mg/L 5.4 (L) Vitamin E-gamma 0.3 - 3.2 mg/L 0.2 (L) G-6-PD Quantitative 9.8 - 15.5 U/g Hb 14.1 Vitamin B12 232 - 1,245 pg/mL 1,891 (H) Ferritin 30.3 - 565.7 ng/mL 182.0 Copper 70 - 140 ug/dL 59 (L) Zinc 60 - 120 ug/dL 28 (L) Erythropoietin 2.6 - 18.5 mIU/mL 13.1 Vitamin A 0.30 - 1.20 mg/L 0.13 (L) Magnesium 1.7 - 2.3 mg/dL 1.8 Phosphorus 2.7 - 4.8 mg/dL 4.4 ASSESSMENT/PLAN: (D64.89) Anemia due to multiple mechanisms (primary encounter diagnosis) (K90.89) Other specified intestinal malabsorption Assessment: -Patient is a 28-year-old male with a history of cystic fibrosis complicated by pancreatic insufficiency/malabsorption and cirrhosis. He has multifactorial anemia, most recently exacerbated by acute illness. He has evidence of vitamin A and E deficiency as well as copper and zinc deficiency. Plan: -Referral to oncology nutrition for opinion on replacement vitamins A and E as well as sequential replacement of copper and zinc. -Recheck CBC and retic count today. -Iron studies as well as serum soluble transferrin receptor. -Follow up pending above. I spent a total of 50 minutes on the date of the service which included preparing to see the patient, [id number] patient care, completing clinical documentation, obtaining and/or reviewing separately obtained history, performing a medically appropriate examination, counseling and educating the pat ient/family/caregiver, ordering medications, tests, or procedures, communicating with other HCPs (not separately reported), and communicating results to the patient/family/caregiver. Fredo Moreno DO documented in this encounterOhiohealth [facility]09-12-2023 History of Present illness Narrative* Cheyanne Kraus RRT - 08/12/2023 10:47 AM EDT Faxed Nebulizer Order, notes, demographics to [facility] at [phone], ph [phone]. Patient ndd not receive unit from Pulmonary Rehab Coordinator. Unit will be shipped by [facility]. Cheyanne Kraus RRT documented in this encounterOhiohealth [facility]09-11-2023 History of Present illness Narrative* Stephie Ramirez APRN.ACQUISITION ANALYST - 08/11/2023 1:33 PM EDT Subjective Date of encounter: 08/11/2023 Jay Barber (1995), is a 28 year old male who presents for Diabetes management Important Lab History: HBA1C:10/2013: 10.8%, 12/2013: 7.4%, 03/2014: 9.6%, 03/2014: 8.1%, 05/2014: 6.7%, 05/2015: 6.9%, 08/2015: 8.4%, 12/2015: HbA1c 8.3%, 03/2016: 8.9%, 05/2016: 7.0%, 01/2018: 9.6%, 05/2018: 10.3%, 08/2018: 8.2%, 10/2018: 7.9%, 01/2019: 8.1%, 03/2019: 6.6%, 07/2019: 6.5%, 12/2019: 6.9%, 07/2020: 6.6%, 08/2020: 6.4%, 01/2021: HbA1C 8.3%, 03/2021: 8.3%, 05/2021: 7.4%, 08/2021: 7.4%, 12/2021: 7.5%, 07/2022: 8.6%, 10/2022: 8.4%, 03/2023: 7.7%, 07/2023: 6.9%, Thyroid Function Testin10/2013: TSH 2.29 (0.358-3.740), free T4 1.02 (0.76- 1.46), 12/2015: TSH 1.970 (0.358-3.740 uIU/mL), free T4 1.15 (0.76-1.46 ng/dL), 01/2018: TSH 1.735 (0.35-5.5), 12/2018: TSH 1.137 (0.35-5.5), 05/2019: TSH 2.293 (0.35-5.5), 01/2020: TSH 1.754 (0.35-5.5), free T4 1.2 (0.9-1.5), 01/2021: TSH 1.9 (0.27-4.2 uIU/mL), free T4 1.2 (0.9-1.7), 12/2021: TSH 3.41 (0.27-4.2 uIU/mL), free T4 1.1 (0.9-1.7), 07/2023: TSH 2.35 (0.27-4.2 uIU/mL), Renal Function Testin08/2013: creatinine 0.7, 12/2015: creatinine 0.69 mg/dL, eGFR >60,), 05/2018: Creatinine 0.72, 01/2019: Creatinine 0.86, 07/2019: Creatinine 0.73, 07/2020: Creatinine 0.65, 10/2020: Creatinine 0.64, 01/2021: Creatinine 0.81, 03/2021: Creatinine 0.73, 12/2021: Creatinine 0.64, 12/2022: Creatinine 0.78, 03/2023: Creatinine 0.83, 08/2023: Creatinine 1.13 eGFR 90 Urine for Microalbumin:10/2013: Microalbumin:Creatinine ratio ok,12/2015: microalbumin : creatinine ratio ok, 08/2017: Microalbumin:Creatinine Ratio ok, 10/2018: Microalbumin:Creatinine Ratio 535, 01/03/2020: Microalbumin:Creatinine Ratio 650, 01/2021: Microalbumin:Creatinine Ratio 361. Improved but above goal. Jay states he has used lisinopril in the past but this increased his potassium too muchand it was discontinued. He will inquire further with his CF providers about losartan. I advised him to make an appointment with nephrology as we had previously discussed., 03/19/2021: Microalbumin:Creatinine Ratio 1220, 08/2021: still hasn't made appointment with kidney specialist, stressed the impo rtance of this to prevent further kidney damage., 10/2022: prot/creat ratio in epic, making appointment with nephrology, 07/2023: prot/creat ratio in epic Lipid Profile:10/2013: TC 111, HDL 42, LDL 56, TG 56, 12/2015: TC 122, HDL 52, LDL 60, TG 49, 10/2018: TC 160, HDL 72, LDL 71, TG 83, 01/03/2020: TC 253 HDL 133 LDL 112 TG 38, 01/2021: TC 179 HDL 115 LDL54 TG 51, 03/2021: TC 233 HDL 143 LDL 84 TG 32 Liver Profile:08/2013: AST 93, ALT 65, Alkaline Phosphatase 811, 12/2015: AST 110 (9-37 U/L), ALT 164 (12-78 U/L), alkaline phosphatase 807 (46-116 U/L), Bilirubin, total 1.3 (0.2-1.0, mg/dL, 05/2018: results in care everywhere, 12/2019: results in care everywhere, 01/2020: labs in [facility], 07/2020; Alkaline Phosphatase 725 (45-117), ALT 77 (16-61), AST 163 (15-37), 12/2020: results in care everywhere., 03/2021: results In care everywhere, 12/2021: Alkaline Phosphatase 918 (38-113), bone percent 13.9%, liver percent 86.1 , 12/2022: liver function monitored by CF providers, 03/2023: in [facility], 08/2023: LFTS in [facility] Dilated Eye Exam: Patient educated to have ophthalmology visits at least once a year. 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 08/2013: New patient visit for Cystic Fibrosis related Diabetes Previous diabetes related [facility] from [facility] and [employer] reviewed prior to today's office visit. Any changes made at our last diabetes management visit were abstracted accordingly (if applicable). Today's Office Visit: Nephrology: has appointment Hepatology: has appointment Hematology: has appointment Lipids: advised to discuss with CF providers, may not be able to treat with high liver enzymes. Endocrinology: we manage patients CFRD only. self monitoring blood glucose data : see dexcom report. Average 14 day SG 208 43% TIR 2% low range. Consistent post meal elevations, then improves overnight. Is very insulin sensitive. Recent extended hospital stay with CF exacerbation. Has only been home for about a week, is re-adjusting to insulin requirements and eating habits. Diet: can be high in carbs per patient due to CF diet to gain weight per patient. Main concern is jay does drink a good amount of reg pop throughout the day which can significantly and consistently keep his blood sugars above goal, then oftentimes overcorrecting into a low blood sugar level. He will work on less reg pop and/or cessation. . Exercise: recently out of the hospital. History of hypoglycemia unawareness,-using dexcom now. Likes the g7 Insulin pump: not interested at this time until its approved with g7. Your new insulin regimen: Long acting insulin: Insulin used for this is called: Basaglar Bedtime dose 8 units Rapid acting /mealtime insulin: Insulin used for this is called: Humalog or Novolog insulin unit:grams of carb ratio Meal time dosin:25-->since being home, has been taking, close to 1:10 to 1:15 , will use 1:15 with larger amounts of carbs, and 1:10 with smaller amounts of carbs Your sliding scale, for additional units of the rapid acting insulin: Insulin used for this is called: Humalog or Novolog Take this at meals, in addition to the above doses. If glucose reading is: 150-175 Take an additional 0 Units. 176-200 Take an additional 0 Units.------>has been using 1:50/250 201-225 Take an additional 1 Units. 226-250 Take an additional 1 Units. 251-275 Take an additional 1 Units. 276-300 Take an additional 1 Units. 301-325 Take an additional 2 Units. 326-350 Take an additional 2 Units. 351-375 Take an additional 2 Units. 376-400 Take an additional 2 Units. Over 400 Take an additional 3 Units. Typical Day: varies Always check blood sugar prior to driving. Carry glucose tablets when travelling. I reviewed and updated the below Review of Systems for today's office visit. Review of Systems Constitutional: Negative for weight loss. HENT: Negative for ear pain. Eyes: Negative for pain. Respiratory: Negative for shortness of breath. Cardiovascular: Negative for chest pain. Gastrointestinal: Negative for abdominal pain, blood in stool and melena. Genitourinary: Negative for hematuria. Musculoskeletal: Negative for falls. Neurological: Negative for loss of consciousness. 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) Transfusion history Type 1 diabetes mellitus with hyperglycemia (HCC) PAST SURGICAL HISTORY Procedure Laterality Date PAST SURGICAL HISTORY OF splenal renal shunt to treat portal hypertension PICC LINE INSERT/CONSULT 03/08/2023 FAMILY HISTORY Problem Relation Age of Onset Hypertension Mother Breast Cancer Other other (hypercholesterolemia) Other other (heart disease in female family member before age 65) Other Social History Tobacco Use Smoking status: Never Smokeless tobacco: Never Vaping Use Vaping Use: Never used Substance Use Topics Alcohol use: No Drug use: No Current Meds albuterol HFA (VENTOLIN HFA) 90 mcg/actuation inhaler inhale 2 puffs by mouth as directed every 4 hours if needed for wheezing or shortness of breath VITAMIN D2 1,250 mcg (50,000 unit) capsule Take 1 capsule by mouth two times a week. elexacaftor 100 mg-tezacaftor 50 mg-ivacaftor 75 mg(d)/ivacaftor 150 mg(n) tablets (TRIKAFTA) Alternate between 2(starting 07/30) and 1 tablet every morning , hold evening dose torsemide (DEMADEX) 10 mg tablet Take 1 tablet by mouth once daily. fluticasone (FLONASE) 50 mcg/actuation nasal spray Use 1-2 Sprays in each nostril once daily. fluticasone (FLOVENT) 220 mcg/actuation inhaler Inhale 1 Puff as instructed twice daily. Blood-Glucose Meter,Continuous (DEXCOM G7 CODER OPERATOR) [facility] For monitoring sugars Blood-Glucose Sensor (DEXCOM G7 SENSOR) jean-paul One sensor every 10 days insulin lispro (HUMALOG KWIKPEN INSULIN) 100 unit/mL Dose varies units with meals and sliding scale, using about 30 total units a day Insulin Calvin, Disposable, (BD ULTRA-FINE YARON PEN NEEDLE) 32 gauge x 5/32 5x/day glucagon (BAQSIMI) 3 mg/actuation nasal spray Use 1 Calvin in the nose as needed. May repeat after 15 minutes using a new device if there is no response for severe low blood sugar event insulin glargine (BASAGLAR KWIKPEN U-100 INSULIN) 100 unit/mL (3 mL) Inject 8 units subcutaneously at bedtime aztreonam lysine (CAYSTON) 75 mg/mL nebulizer solution Inhale 1 mL as instructed three times daily.28 days on 28 days off Send altera nebulizer with each shipment Nebulizers 1 Each three times daily. dornase christi (PULMOZYME) 1 mg/mL nebulizer solution Inhale 2.5 mL as instructed once daily. cetirizine (ZYRTEC) 5 mg tablet Take 10 mg by mouth once daily. carvedilol (COREG) 6.25 mg tablet Take 1 tablet by mouth twice daily with meals. montelukast (SINGULAIR) 10 mg tablet Take 1 tablet by mouth daily at bedtime. ursodiol (ACTIGALL) 300 mg capsule Take 300 mg by mouth twice daily. Nebulizers 1 Each three times daily. fluticasone-salmeterol (ADVAIR) 500-50 mcg/dose dsdv Inhale 1 Puff as instructed twice daily. CREON 36,000-114,000- 180,000 unit capsule Take 3 capsules by mouth. With every meal Blood-Glucose Meter monitoring kit For monitoring sugars 3x/day Lancets lancets Use as instructed 3x/day blood sugar diagnostic (BLOOD GLUCOSE TEST) test strip 3x/day Objective BP 140/82 Ht 157.5 cm (5' 2 ) Wt 40 kg (88 lb 1.6 oz) BMI 16.11 kg/m Physical Exam Constitutional: General: He is not in acute distress. Appearance: He is not toxic-appearing. HENT: Head: Normocephalic and atraumatic. Eyes: General: No scleral icterus. Conjunctiva/sclera: Conjunctivae normal. Cardiovascular: Rate and Rhythm: Normal rate and regular rhythm. Pulmonary: Effort: Pulmonary effort is normal. No respiratory distress. Breath sounds: Normal breath sounds. No wheezing or rales. Skin: General: Skin is warm. Neurological: Mental Status: He is alert. Comments: -Sensory: Monofilament Exam- (1) Left Foot Positive, (2) Left Foot Positive, (3) Left Foot Positive, (4) Left Foot Positive (1) Right Foot Positive, (2) Right Foot Positive, (3) Right Foot Positive, (4) Right Foot Positive Olson: (1) around area of interphalangeal joint of the hallux, (2) around 1st metatarsal head, (3) around 3rd metatarsal head, (4) around 5th metatarsal head Left Foot: No ulceration, Vesicle/Bulla Right Foot: No ulceration, Vesicle/Bulla Psychiatric: Mood and Affect: Mood and affect normal. Mood is not anxious. Judgment: Judgment normal. ASSESSMENT/PLAN: 1. Type 1 diabetes mellitus with hyperglycemia (HCC) - ICD9: 250.01, ICD10: E10.65 - GLUCOSE MONITOR, 72 HOUR, PHYS INTERP - BLOOD-GLUCOSE METER KIT - LANCETS - BLOOD GLUCOSE TEST STRIPS Plan of Care: 1. Recent HbA1C 6.9%. 2. Can continue current diabetes medications and dosages for now. Notify me in between visits if glycemia is trending above/below goals. 3. Total time for today's office visit was greater than 30 minutes. Greater than 50% of the time was spent in counseling and/or coordination of care. 4. Self monitoring blood glucose log sheet(s) were given to the patient. Instructed to fill out sheets and bring log to next visit. 5. Answered all questions. 6. Patient verbalized understanding of all the above instructions. 7. Discussed therapeutic lifestyle changes. Stephie Ramirez APRN.ACQUISITION ANALYST documented in this encounterOhiohealth Mansfield Hospital09-06-2023 Miscellaneous Notes* Telephone Encounter - Varsha Thomason LISW - 08/06/2023 4:15 PM EDT DAVID signed by pt for medical records to be sent to the [email or web address]. Records to be securely sent to assistance program. documented in this encounterOhiohealth Mansfield Hospital09-06-2023 History of Present illness Narrative* Jean Pierre Kilgore MD - 08/06/2023 1:52 PM EDT VIRTUAL VISIT PROGRESS NOTE This is a virtual visit using [employer] video visit. It required patient-provider interaction for themedical decision making as documented below. I have communicated my name and active licensure. The patient's identity and physical location wereverified at the time of this visit. Either the patient or their legal motor vehicle field representative has been informed of the risks and benefits of -- and alternatives to -- treatment through a remote evaluation andconsents to proceed with the evaluation remotely. History: Jay Barber is a 28 year old male seen for Cystic Fibrosis and hospital follow-up. Prolonged hospitalization (4 weeks), DC 1 week ago) recently initially for CFPEx, with CFLD worsening, RITA with renal failure (250% increase in creatinine), and change in mentation. Eventually had very good recovery of lung function, and was DCed with baseline renal function on torsemide. Unfortunately, didn't get filled or start until Friday, so labs do not reflect his being on the med. Reports feeling good - nonexistent cough and sputum. Is gaining strength, has not regained edema/water weight. Appetite is growing, and reports glucose control is better than when admitted - back on home dose of insulin and diet. Back on Trikafta at usual dose (2 orange alternate with 1 orange daily, no blues). BMs are BID, formed, not black or tarry. 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) Transfusion history Type 1 diabetes mellitus with hyperglycemia (HCC) PAST SURGICAL HISTORY Procedure Laterality Date PAST SURGICAL HISTORY OF splenal renal shunt to treat portal hypertension PICC LINE INSERT/CONSULT 03/08/2023 FAMILY HISTORY Problem Relation Age of Onset Hypertension Mother Breast Cancer Other other (hypercholesterolemia) Other other (heart disease in female family member before age 65) Other Social History Tobacco Use Smoking status: Never Smokeless tobacco: Never Vaping Use Vaping Use: Never used Substance Use Topics Alcohol use: No Drug use: No Current Outpatient Medications Medication Sig albuterol HFA (VENTOLIN HFA) 90 mcg/actuation inhaler inhale 2 puffs by mouth as directed every 4 hours if needed for wheezing or shortness of breath VITAMIN D2 1,250 mcg (50,000 unit) capsule Take 1 capsule by mouth two times a week. elexacaftor 100 mg-tezacaftor 50 mg-ivacaftor 75 mg(d)/ivacaftor 150 mg(n) tablets (TRIKAFTA) Alternate between 2(starting 07/30) and 1 tablet every morning , hold evening dose torsemide (DEMADEX) 10 mg tablet Take 1 tablet by mouth once daily. citalopram (CELEXA) 20 mg tablet Take 20 mg by mouth once daily. Reports not taking at this time. fluticasone (FLONASE) 50 mcg/actuation nasal spray Use 1-2 Sprays in each nostril once daily. fluticasone (FLOVENT) 220 mcg/actuation inhaler Inhale 1 Puff as instructed twice daily. Blood-Glucose Meter,Continuous ([email or web address] G7 CODER OPERATOR) [facility] For monitoring sugars Blood-Glucose Sensor (DEXCOM G7 SENSOR) jean-paul One sensor every 10 days insulin lispro (HUMALOG KWIKPEN INSULIN) 100 unit/mL Dose varies units with meals and sliding scale, using about 30 total units a day Insulin Calvin, Disposable, (BD ULTRA-FINE YARON PEN NEEDLE) 32 gauge x 5/32 5x/day glucagon (BAQSIMI) 3 mg/actuation nasal spray Use 1 Calvin in the nose as needed. May repeat after 15 minutes using a new device if there is no response for severe low blood sugar event insulin glargine (BASAGLAR KWIKPEN U-100 INSULIN) 100 unit/mL (3 mL) Inject 8 units subcutaneously at bedtime aztreonam lysine (CAYSTON) 75 mg/mL nebulizer solution Inhale 1 mL as instructed three times daily.28 days on 28 days off Send altera nebulizer with each shipment Nebulizers 1 Each three times daily. dornase christi (PULMOZYME) 1 mg/mL nebulizer solution Inhale 2.5 mL as instructed once daily. cetirizine (ZYRTEC) 5 mg tablet Take 10 mg by mouth once daily. carvedilol (COREG) 6.25 mg tablet Take 1 tablet by mouth twice daily with meals. montelukast (SINGULAIR) 10 mg tablet Take 1 tablet by mouth daily at bedtime. ursodiol (ACTIGALL) 300 mg capsule Take 300 mg by mouth twice daily. Nebulizers 1 Each three times daily. fluticasone-salmeterol (ADVAIR) 500-50 mcg/dose dsdv Inhale 1 Puff as instructed twice daily. CREON 36,000-114,000- 180,000 unit capsule Take 3 capsules by mouth. With every meal No current facility-administered medications for this visit. ALLERGIES Allergen Reactions Vancomycin Itching, Rash Gets Red Man syndrome and pt if not premedicated with benadryl prior to Vancomycin infusions. Cefoxitin Rash, Other: See Comments Severe abdominal pain, diarrhea, rash Severe Abdominal Pains Linezolid Rash, GI Upset REVIEW OF SYSTEMS: GENERAL: no recent change in weight RESPIRATORY: no cough, no wheezing or shortness of breath CARDIOVASCULAR: no chest pain, no palpitations MUSCULOSKELETAL: denies any painful or swollen joints, no muscle aches PSYCH: denies depressed or anxious mood, sleep is normal As noted in HPI PHYSICAL EXAMINATION: VIDEO EXAM: (if completed, performed via video enabled technology) GENERAL: alert and appropriate, in no distress, well-hydrated, well nourished, and happy, smiling, interactive EXTREMITIES: showed ankles, no edema ASSESSMENT: No diagnosis found. PLAN: CYSTIC FIBROSIS PULMONARY DISEASE AND BRONCHIECTASIS, s/p recent exacerbation Back to baseline (best FEV1 since transferring to [facility] a year ago) FEV1%: 36% 07/24/23; FEV1%trend: 23% 07/17/23; 23% 07/10/23; 23% 07/02/23 Microbiology: b. 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 (01/01/1994 - in [address] drive) Anti-inflammatory therapy and Airway obstruction ---not on Azithromycin due to prior NTM ---Patient doing acapella twice daily ---dornase every day when ill Chronic maintenance regimen: CFTR modulators: Trikafta - was on adjusted dosing due to Cirrhosis - reports taking 2 orange pillson even days of the month and 1 orange pill on odd days of the month, No blue pills Pulmozyme: once daily when ill Hypertonic saline: has at home but not currently using Chronic Azithromycin (anti-inflammatory): No (on hold due to prior NTM) Inhaled Abx: Cayston (off this month) Ibuprofen: No Nebulized short-acting bronchodilator: albuterol as needed Nebulized other: PEP device: has acapella VEST: not currently using ICS: Advair 500/50mg 2 puffs BID Oral prednisone: as needed, not currently on Pulm rehab: not currently using Supplemental oxygen use: no Exercise and minutes per week: brisk walking/ lifting, 2 hrs per week Recommended ORDER OF AIRWAY CLEARANCE: Albuterol, Hypertonic, VEST (with hypertonic), pulmozyme, Inhaled antibiotics, Inhaled corticosteroids -continue normal CF regimen -recheck labs/CMP in 1 week -Follow-up in 4 weeks -has annual scheduled 09/16/23 [address] [facility] [place] -schedule DEXA that day 2. ADVANCED LUNG DISEASE Has had variable responsiveness to transplantation conversation. While he continues to be ambivalent, he agrees that keeping his options open is in his best interests, and is ok with pursuing a referral and financial evaluation. Willing to let liver transplant workup/finance proceed 3. ACUTE LIVER INJURY Has restarted torosimide, has labs scheduled There are no Patient Instructions on file for this visit. I spent a total of 23 minutes on the date of the service which included preparing to see the patient, [id number] patient care, and completing clinical documentation Jean Pierre Kilgore MD documented in this encounterOhio[facility]-05-[facility]23 Miscellaneous Notes* Telephone Encounter - Zaida Santos RN - 08/05/2023 11:20 AM EDT Called and spoke with patient. He had the Torsemide script transferred to a local pharmacy and has been taking it since Friday. Reviewed possible side effects of medication. Patient has a blood pressure cuff at home to utilize if needed. Has no concerns/questions at this time. Reminded him of virtual visit tomorrow with Dr. Kilgore documented in this [facility]08-30-2023 Miscellaneous Notes* Telephone Encounter - Isaac Gisbon - 07/30/2023 11:12 AM EDT 90 DAY SUPPLY request for Albuterol Inhaler Last office visit: 07/17/23 Future Appointment: 08/06/23 Pharmacy: [facility] Please approve or deny as appropriate. documented in this [facility]08-24-2023 Miscellaneous Notes* Telephone Encounter - Zaida Santos RN - 07/24/2023 3:46 PM EDT Addressed by SW documented in this [facility]08-24-2023 History of Present illness Narrative* Alicia Coello Tech - 07/24/2023 2:09 PM EDT PULM FUNCTION SMARTBLOCK: Provider: Scullark, Nabor, PA-C Inpatient: Yes Spirometry: 1 documented in this encounterOhiohealth Mansfield [facility]08-17-2023 History of Present illness Narrative* Randall Weaver, JAYME - 2023 9:37 AM EDT PULM FUNCTION SMARTBLOCK: Provider: She Pete, Inpatient: Yes Spirometry: 1 System: [facility] - [id number] documented in this encounterOhiohealth Mans[facility]08-10-2023 History of Present illness Narrative* Tyler Davis Tech - 07/10/2023 1:19 PM EDT PULM FUNCTION SMARTBLOCK: Provider: She Pete DO Spirometry: 1 [id number] documented in this encounterOhiohealth [facility]08-02-2023 History of Present illness Narrative* Varsha Thomason LISW - 07/02/2023 2:36 PM EDT Annual Cystic Fibrosis Social Work Psychosocial Assessment Date of Assessment: 07/02/23 Participants in Encounter: sebastian Chan Demographic Information Patient Name: Jay Barber Marital Status: single Date of :[birth year] Age: 27 Biological sex at : M Diagnosis/medical history: Jay Barber is a 27 year old male, here for follow-up of Cystic Fibrosis 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 (01/01/1994 - in [address]) Complications of CF: ---Advanced stage lung disease ---Chronic infection with Pseudomonas, MRSA, 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, Trichosporonosis, Aspergillus ---Pancreatic insufficiency - on enzymes with Creon ---CFRD - follows with endocrinology ---CF Liver disease - complicated by portal hypertension, esophageal varices ---Chronic sinusitis ---Anxiety/Depression Family Composition Patient resides with: parents Siblings Ages/Live: unkwn Financial and Community Resources/Issues 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; 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 Annual Household Income: 25,000 Insurance Medicaid/HMO: [facility]/Other: Adult [facility] Copay Assistance Program: eligible for [employer], but not needed Financial Concerns: Parking/transportation/medication: parking pass provided; no concerns obtaining or affording medications Daily Care Check in Completed: Yes/No: No Education School:[employer]-psychology major Any developmental issues/delays: none Educational Level of Father of Patient: unkwn Educational Level of Mother of Patient: unkwn Educational Level of Spouse: N/A Social History: -T/F care from [facility] -Advanced lung disease -Has not been interested in pursuing lung transplant -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 Feels okay off of it -declines counseling Depression and Anxiety (deferred today due to illness/being admitted) PHQ-9: ELVIS-7: Alcohol or Drug Use/Abuse/Treatment Patient:denies Tobacco/vaping use: none Second hand-smoke exposure: none Alternative Medicines/therapies: none Advanced Directives Not in EPIC Assessment/Plan Jay is here for an outpatient appointment. He is experiencing a pulmonary exacerbation and will be admitted. He lives with his parents 1 and 1/2 hour away in [place], [place]. 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 Requesting letter after admission when he can go back to work. He has [facility] Medicaid and adult [facility] for insurance. No issues obtaining or affording medications. He has a history of anxiety and depression. He was on citalopram 20 mg since 2017 but stopped taking it a few months ago. He feels okay off of it. He has not been in counseling and does not feel he needs it at this time. Pt will see Dr. Pinon this admission to briefly discuss transplant. SW discussed possible palliative care consultation this admission and pt stated he did not want to consult with them at this time. No other concerns at this time. SW will continue to follow. documented in this encounterOhiohealth [facility]08-02-2023 History of Present illness Narrative* Cayeatno Malik, JAYME - 07/02/2023 2:04 PM EDT PULM FUNCTION SMARTBLOCK: Provider: She Pete DO Spirometry: 1 documented in this encounterOhiohealth Mans[facility]08-02-2023 History of Present illness Narrative* Sally Schneider APRN.ACQUISITION ANALYST - 07/02/2023 11:00 AM EDT Images from the original note were not included. PULMONARY MEDICINE CYSTIC FIBROSIS FOLLOW UP Patient Name: Jay Barber PRIMARY CARE PHYSICIAN: No primary care provider on file. Portions of this note were taken from the note dated 06/04/2023 ASSESSMENT AND PLAN: Jay Barber is a 27 year old male, here for follow-up of Cystic Fibrosis. 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, Trichosporonosis, Aspergillus ---Pancreatic insufficiency - on enzymes with Creon ---CFRD - follows with endocrinology ---CF Liver disease - complicated by portal hypertension, esophageal varices ---Chronic sinusitis ---Anxiety/Depression A CF Pulmonary Exacerbation is ABSENT We discussed the following today: ---Admit for IV antibiotics today ---Plan for IV Meropenem 1.5 grams every 8 hours, IV minocycline 100 mg every 12 hours and IV Vancomycin 1 gram every 12 hours ---Pretreat vancomycin with benadryl 50 mg IV ---Inhaled cayston ---Get abdominal x ray today ---RVP today ---Will have Dr Pinon stop by to meet you in person while hospitalized Chronic maintenance regimen: CFTR modulators: Trikafta - was on adjusted dosing due to Cirrhosis - reports taking 2 orange pillson even days of the month and 1 orange pill on odd days of the month, No blue pills Pulmozyme: once daily currently due to exacerbation Hypertonic saline: has at home but not currently using Chronic Azithromycin (anti-inflammatory): No (on hold due to prior NTM) Inhaled Abx: Cayston Off May; On July; has not started yet Ibuprofen: No Nebulized short-acting bronchodilator: duoneb as needed Nebulized other: PEP device: has acapella VEST: not currently using ICS: Advair 500/50mg 2 puffs BID Oral prednisone: as needed, not currently on Pulm rehab: not currently using Supplemental oxygen use: no Exercise and minutes per week: brisk walking/ lifting, 2 hrs per week Recommended ORDER OF AIRWAY CLEARANCE: Albuterol, Hypertonic, VEST (with hypertonic), pulmozyme, Inhaled antibiotics, Inhaled corticosteroids 2. ADVANCED LUNG DISEASE (criteria: FEV1 < 40) and CHRONIC HYPOXEMIC RESPIRATORY FAILURE ---Supplemental oxygen: no ---BIPAP: no ---Pulmonary rehab: no ---ECHO: will need to repeat (last done 07/21/2022) ---Weight: BMI of 15.88 (03/05/2023) ---Discussed lung transplantation: yes, during recent hospitalization with Dr. Pinon 03/06/2023 - not currently interested, but willing to discuss ---Referred for lung transplantation: not at this time per patient preference, but has talked to Maddi on the phone in March. Dr Pinon to see while patient in hospital for exacerbation. 3. CHRONIC RESPIRATORY TRACT PSEUDOMONAS AND BURKHOLDERIA (Vietnamiensis) ---Mucoid phenotype ---Inhaled antibiotic: previously used cayston montly alternating with MUKESH podhaler - restarted Cayston in December 2022. Does have the altera device ---Not on chronic azithromycin due to NTM ---Oral antibiotic that patient responds to: Cipro and Bactrim ---IV abx that patient responds to: IV TOBRAMYCIN, meropenem, vancomycin 4. CYSTIC FIBROSIS PANCREATIC INSUFFICIENCY ---No generic enzymes, ever. ---Creon 36,000, 3-4 BEFORE meals AND 2-3 BEFORE snacks ---Fat soluble supplemental vitamins: Vitamin K 40 mcg daily ---CF Vitamins: MVI 2 daily Vitamin D 25 Hydroxy (ng/mL) Date Value 03/08/2023 8.0 ] 5. CYSTIC FIBROSIS LIVER DISEASE --- s/p acute transaminitis related to IV abx in March, trikafta held but restarted March 2023 --- cirrhosis complicated by esophageal varices, portal hypertension --- Actigall restarted during last hospitalization - --- last RUQ US in 07/27/2022 - cirrhotic liver morphology. No focal hepatic lesions, fatty replacement of the pancreas compatible with underlying cystic fibrosis, mild splenomegaly --- last EGD - 07/30/2022 - small (<5mm) varices were found in the lower third of the esophagus. The entire examined stomach was normal. The examined duodenum was normal. --- last saw hepatology on 07/30/2022 while inpatient - requested hepatology outpatient follow-up --- on mephyton 5mg MWF 6. CYSTIC FIBROSIS RELATED DIABETES ---The standard medical therapy for CFRD is subcutaneous insulin ---Patient currently on insulin therapy ---Self monitored blood glucose 3 times per day ---Patient has a CGM: NO ---Most recent hgA1c noted. ---Had ophthalmology retinal exam: needs to be done ---Urine albumin/creatinine ratio done: needs to be done ---Following with Dr. Francis Ramirez at [facility], last seen 04/07/2023 Latest Reference Range & Units 07/17/22 10:26 11/05/22 14:31 03/08/23 00:50 Hemoglobin A1C 4.3 - 5.6 % 8.6 (H) 8.4 (H) 7.7 (H) (H): Data is abnormally high 7. CHRONIC PANSINUSITIS Sinuses can be a reservoir of bacterial infection and contribute to recurrent lower respiratory tract infections, especially in patients infected with Pseudomonas Symptoms are stable Nasal polyps - unknown? ---Antihistamine: zyrtec ---Nasal steroid: flonase ---Montelukast: added but discussed possible changes with mood ---If not improving with restart sinus medications - will obtain CT sinus and referral to ENT - would like to hold off on this for now given most likely related to change in weather ---Referral to ENT for surgical eval. Appt [phone]. 8. Severe protein calorie malnutrition - continue ensures 9. Prior Invasive Pulmonary Aspergillus infection/Trichosporonosis - treated with voriconazole by ID cosmetic consultant Dr. Burke France in 2019 for 1 year 10. Depression/Anxiety ---continues on celexa 20 mg PO daily - refilled 11/20/2022 and restarted 11. HTN ---amlodipine 10 mg PO daily (had hyperkalemia with SEVERINO-I) 12. Proteinuria --- previously seen by Dr. Ahuja in nephrology Hemoglobin A1C (%) Date Value 03/08/2023 7.7 11/05/2022 8.4 2022 8.6 02/12/2021 8.8 12/08/2015 8.3 Hemoglobin A1c (%) Date Value 05/22/2021 7.4 09/11/2020 6.4 12/30/2019 6.9 Hemoglobin A1C (POCT) (%) Date Value 12/24/2021 7.5 09/10/2021 7.4 05/22/2021 7.4 09/11/2020 6.4 HGBA1C (%) Date Value 07/30/2019 6.5 04/30/2019 6.6 01/25/2019 8.1 09/10/2018 8.2 05/29/2018 10.3 06/25/2016 7.0 ANNUAL SCREENING: Annual labs: will need OGTT: CFRD EYE EXAM TO CHECK FOR CATARACTS: WILL NEED DEXA: NEEDS LIVER US/Fibroscan: NEEDS for 2022 (last done 07/27/22) Colonoscopy: Start screening at age 35-40 years in CF due to increased risk of GI carcinoma: not ofage Immunization History Administered Date(s) Administered COVID-19 original vaccine, age 12+ yr, monovalent ([employer] - PURPLE TOP) 12/24/2020 01/21/2021 12/05/2021 COVID-19 vaccine, age 12+ yr, bivalent ([employer]) 12/04/2022 Haemophilus influenzae b (HbOC) vaccine, 4-dose series (HIBTITER) 1993 01/11/1994 05/20/1994 02/13/1995 Haemophilus influenzae b (Hib PRP-T) vaccine, 4-dose series (ACTHIB, HIBERIX) 07/16/1995 diphtheria tetanus pertussis (DTP) vaccine 1993 01/11/1994 05/20/1994 02/13/1995 07/16/1995 07/18/1999 hepatitis B (HepB) vaccine, 3-dose series, age 0 yr - 19 yr (ENGERIX B-PEDS, RECOMBIVAX HB-PEDS) 1993 1993 05/20/1994 influenza (IIV3) vaccine, trivalent (AFLURIA, FLULAVAL, FLUVIRIN, FLUZONE) 10/23/2011 09/13/2013 11/05/2018 influenza (IIV4) vaccine, age 6 mo - 64 yr, quadrivalent (AFLURIA, FLULAVAL, FLUZONE) 12/04/2022 influenza (IIV4) vaccine, age 6 mo - 64 yr, quadrivalent, PF (AFLURIA, FLUARIX, FLULAVAL, FLUZONE) 09/02/2016 10/11/2019 influenza (IIV4) vaccine, quadrivalent (AFLURIA, FLULAVAL, FLUZONE) 11/05/2018 influenza vaccine, whole virus 10/03/2010 measles mumps rubella (MMR) vaccine (M-M-R II, PRIORIX) 02/13/1995 06/13/1999 meningococcal (MenACWY-D) vaccine, quadrivalent (MENACTRA) 05/27/2012 meningococcal (MenACYW) vaccine, quadrivalent, unspecified formulation 05/27/2012 novel influenza (K7J8-11) vaccine, PF 10/19/2009 pneumococcal (PCV13) vaccine, 13 valent (PREVNAR 13) 05/26/2019 pneumococcal (PCV7) vaccine, 7 valent (PREVNAR 7) 01/08/2006 pneumococcal (PPV23) vaccine, 23 valent (PNEUMOVAX 23) 10/23/2011 07/28/2019 poliovirus (IPV) vaccine, inactivated (IPOL) 1993 01/11/1994 05/20/1994 02/13/1995 tetanus diphtheria pertussis (Tdap) vaccine, age 7+ yr (ADACEL, BOOSTRIX) 05/29/2012 Immunization History Administered Date(s) Administered COVID-19 original vaccine, age 12+ yr, monovalent ([employer] - PURPLE TOP) 12/24/2020 01/21/2021 12/05/2021 COVID-19 vaccine, age 12+ yr, bivalent ([employer]olutions) 12/04/2022 Haemophilus influenzae b (HbOC) vaccine, 4-dose series (HIBTITER) 1993 01/11/1994 05/20/1994 02/13/1995 Haemophilus influenzae b (Hib PRP-T) vaccine, 4-dose series (ACTHIB, HIBERIX) 07/16/1995 diphtheria tetanus pertussis (DTP) vaccine 1993 01/11/1994 05/20/1994 02/13/1995 07/16/1995 07/18/1999 hepatitis B (HepB) vaccine, 3-dose series, age 0 yr - 19 yr (ENGERIX B-PEDS, RECOMBIVAX HB-PEDS) 1993 1993 05/20/1994 influenza (IIV3) vaccine, trivalent (AFLURIA, FLULAVAL, FLUVIRIN, FLUZONE) 10/23/2011 09/13/2013 11/05/2018 influenza (IIV4) vaccine, age 6 mo - 64 yr, quadrivalent (AFLURIA, FLULAVAL, FLUZONE) 12/04/2022 influenza (IIV4) vaccine, age 6 mo - 64 yr, quadrivalent, PF (AFLURIA, FLUARIX, FLULAVAL, FLUZONE) 09/02/2016 10/11/2019 influenza (IIV4) vaccine, quadrivalent (AFLURIA, FLULAVAL, FLUZONE) 11/05/2018 influenza vaccine, whole virus 10/03/2010 measles mumps rubella (MMR) vaccine (M-M-R II, PRIORIX) 02/13/1995 06/13/1999 meningococcal (MenACWY-D) vaccine, quadrivalent (MENACTRA) 05/27/2012 meningococcal (MenACYW) vaccine, quadrivalent, unspecified formulation 05/27/2012 novel influenza (M1J6-77) vaccine, PF 10/19/2009 pneumococcal (PCV13) vaccine, 13 valent (PREVNAR 13) 05/26/2019 pneumococcal (PCV7) vaccine, 7 valent (PREVNAR 7) 01/08/2006 pneumococcal (PPV23) vaccine, 23 valent (PNEUMOVAX 23) 10/23/2011 07/28/2019 poliovirus (IPV) vaccine, inactivated (IPOL) 1993 01/11/1994 05/20/1994 02/13/1995 tetanus diphtheria pertussis (Tdap) vaccine, age 7+ yr (ADACEL, BOOSTRIX) 05/29/2012 CHIEF COMPLAINT: Cystic Fibrosis HISTORY OF PRESENT ILLNESS: Jay Barber is a 27 year old male, here for follow-up of Cystic Fibrosis last seen 4 weeks ago, he was doing well at that time, but soon after he developed worse constipation and increased cough, increased thick dark brown sputum production and shortness of breath. He coughs throughout the night and has occasional paroxysmal episodes. 2 days ago had episode of lara hemoptysis, approx 1/2 a cup. Has not had hemoptysis since, no streaks in sputum. Appetite has been poor for the past few weeks. He has vomiting occasionally and worse heartburn. Bowel movements have been slow. Has not had one in the past 2 days. Took metamucil 2 nights ago and had a small bowel movement. Has not been taking miralax lately since it was not working. INTERVAL HISTORY RESPIRATORY: Cough: increased Paroxysms: yes Sputum: thick dark daily Hemoptysis: 2 days ago, none today Chest Congestion: yes Dyspnea: yes Chest Pain: no Night sweats: no Fever: yes Fatigue:yes Wheezing: yes Sinuses: increased congestion GASTROINTESTINAL: GE Reflux: yes worse lately Appetite: poor Abdominal Pain:no Bowel Movement: 1-4/day, Diet (details): high calorie/high fat Supplements: no Vomiting: yes Prolapse: None TINNITUS: yes JOINT/BACK PAIN: yes/no Anxiety yes Depression: yes ENDOCRINE CFRD: present Without polyuria, polydipsia, nocturia or hypoglycemic symptoms 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) Transfusion history Type 1 diabetes mellitus with hyperglycemia (HCC) PAST SURGICAL HISTORY Procedure Laterality Date PAST SURGICAL HISTORY OF splenal renal shunt to treat portal hypertension PICC LINE INSERT/CONSULT 03/08/2023 FAMILY HISTORY Problem Relation Age of Onset Hypertension Mother Breast Cancer Other other (hypercholesterolemia) Other other (heart disease in female family member before age 65) Other Social History Tobacco Use Smoking status: Never Smokeless tobacco: Never Vaping Use Vaping Use: Never used Substance Use Topics Alcohol use: No Drug use: No ALLERGIES: ALLERGIES Allergen Reactions Vancomycin Itching, Rash Gets Red Man syndrome and pt if not premedicated with benadryl prior to Vancomycin infusions. Cefoxitin Rash, Other: See Comments Severe abdominal pain, diarrhea, rash Severe Abdominal Pains Linezolid Rash, GI Upset CURRENT OUTPATIENT MEDICATIONS: fluticasone (FLONASE) 50 mcg/actuation nasal spray Use 1-2 Sprays in each nostril once daily. fluticasone (FLOVENT) 220 mcg/actuation inhaler Inhale 1 Puff as instructed twice daily. Blood-Glucose Meter,Continuous (DEXCOM G7 CODER OPERATOR) [facility] For monitoring sugars Blood-Glucose Sensor (DEXCOM G7 SENSOR) jean-paul One sensor every 10 days insulin lispro (HUMALOG KWIKPEN INSULIN) 100 unit/mL Dose varies units with meals and sliding scale, using about 30 total units a day Insulin Calvin, Disposable, (BD ULTRA-FINE YARON PEN NEEDLE) 32 gauge x 5/32 5x/day glucagon (BAQSIMI) 3 mg/actuation nasal spray Use 1 Calvin in the nose as needed. May repeat after 15 minutes using a new device if there is no response for severe low blood sugar event insulin glargine (BASAGLAR KWIKPEN U-100 INSULIN) 100 unit/mL (3 mL) Inject 8 units subcutaneously at bedtime aztreonam lysine (CAYSTON) 75 mg/mL nebulizer solution Inhale 1 mL as instructed three times daily.28 days on 28 days off Send altera nebulizer with each shipment Nebulizers 1 Each three times daily. dornase christi (PULMOZYME) 1 mg/mL nebulizer solution Inhale 2.5 mL as instructed once daily. cetirizine (ZYRTEC) 5 mg tablet Take 10 mg by mouth once daily. dyktuulwjfb-wziphroiyf-wmptecypp (TRIKAFTA) 100-50-75 mg(d) /150 mg (n) tablet Take 2 tablets by mouth every 48 hours. Take 2 orange tablets on even number days. Then take 1 tablet on Odd number days. Discard blue tablets. DO NOT crush, chew, or open. montelukast (SINGULAIR) 10 mg tablet Take 1 tablet by mouth daily at bedtime. citalopram hydrobromide (CELEXA) 20 mg tablet Take 1 tablet by mouth once daily. ursodiol (ACTIGALL) 300 mg capsule Take 300 mg by mouth twice daily. Nebulizers 1 Each three times daily. albuterol HFA (PROAIR HFA) 90 mcg/actuation inhaler Inhale 2 Puffs as instructed every 4 hours as needed for wheezing/shortness of breath. VITAMIN D2 1,250 mcg (50,000 unit) capsule Take 1 capsule by mouth two times a week. CREON 36,000-114,000- 180,000 unit capsule Take 3 capsules by mouth. With every meal carvedilol (COREG) 6.25 mg tablet Take 1 tablet by mouth twice daily with meals. fluticasone-salmeterol (ADVAIR) 500-50 mcg/dose dsdv Inhale 1 Puff as instructed twice daily. REVIEW OF SYSTEMS CONSTITUTIONAL: No acute distress. HEENT: Pos for sinusitis; See HPI RESPIRATORY: Positive for cough. See HPI CARDIOVASCULAR: Neg for chest pain GASTROINTESTINAL: Neg for abdominal discomfort, No blood in stools or black stools MUSCULOSKELETAL: Neg for synovitis NEUROLOGIC:Negative for focal numbness or weakness, SKIN:Negative for rash. PSYCHIATRIC: Negative for mood disorder The remainder of the ROS was negative. PHYSICAL EXAMINATION: VITAL SIGNS: BP 110/65 Pulse 118 Temp (Src) 101.5 (Temporal) Resp 16 Wt 87 lb 1.3 oz (39.5kg) SpO2 92% Last 5 Encounter Wt Readings: Date: Wt: 06/04/2023 40.5 kg (89 lb 4.8 oz) 04/07/2023 42.1 kg (92 lb 12.8 oz) 03/26/2023 39.8 kg (87 lb 11.2 oz) 03/19/2023 40.8 kg (90 lb) 03/19/2023 41 kg (90 lb 6.2 oz) GENERAL APPEARANCE: He Is well appearing, alert, in no acute distress, well-hydrated, INTEGUMENTARY: skin color, texture, turgor normal, no rashes or lesions; EYES: Anicteric sclera. Pupils are equally round and reactive to light. Extraocular movements are intact. ENT: Pos nasal erthema; mild congestion of B turbinates; +cobblestoning. mild HEME/LYMPH: Supple neck, no adenopathy; thyroid symmetric, normal size, no bruits RESPIRATORY: Diminished lower lobes bilat. Crackles on left , scattered crackles RUL. No wheezing. Percussion normal, good diaphragmatic excursion, productive cough. CARDIOVASCULAR: No edema. RRR without murmur, gallop, or rubs. No ectopy GI: Normal abdominal exam, Abdomen soft, non-tender. Bowel sounds normal. No masses, organomegaly MUSCULOSKELETAL: Considerable clubbing B; No arthritis. No deformities or cyanosis. Gait normal. EXTREMITIES: Bilateral ankle and pedal 1+ edema PSYCH:no signs of depression or anxiety Neuro: Non-focal. Sensation grossly intact. DATA: Diagnostic tests reviewed for today's visit were personally reviewed by me: Sputum culture results and Most recent labs LAST LAB RESULTS: ---Reviewed in [facility] CBC with diff: WBC 6.65 03/24/2023 RBC 4.18 03/24/2023 Hemoglobin 12.9 03/24/2023 Hematocrit 38.6 03/24/2023 MCV 92.3 03/24/2023 MCH 30.9 03/24/2023 MCHC 33.4 03/24/2023 RDW-CV 12.7 03/24/2023 Platelet Count 244 03/24/2023 MPV 10.1 03/24/2023 Neutrophils % 56.6 03/24/2023 Lymph% 24.5 03/24/2023 [place]% 7.4 03/24/2023 Eosin% 16.6 11/26/2022 Baso% 1.1 03/24/2023 Abs Neut (Segs + Bands) 3.77 03/24/2023 Abs [place] 0.49 03/24/2023 Abs Eosin 0.66 03/24/2023 Abs Baso 0.07 03/24/2023 Glucose (mg/dL) Date Value 03/24/2023 249 12/08/2015 113 Potassium Date Value 03/24/2023 4.8 mmol/L 11/26/2022 4.4 Sodium Date Value 03/24/2023 134 mmol/L 12/08/2015 139 mEq/L Chloride Date Value 03/24/2023 100 mmol/L 12/08/2015 102 mEq/L CO2 Date Value 03/24/2023 26 mmol/L 12/08/2015 31 mEq/L Creatinine Date Value 03/24/2023 0.83 mg/dL 11/26/2022 1.16 MG/DL BUN (mg/dL) Date Value 03/24/2023 13 12/08/2015 16 Anion Gap Date Value 03/24/2023 8 mmol/L 12/08/2015 11 Calcium (mg/dL) Date Value 12/08/2015 9.3 Calcium, Total (mg/dL) Date Value 03/24/2023 8.9 Protein, Total (g/dL) Date Value 03/24/2023 8.6 12/08/2015 9.5 Albumin (g/dL) Date Value 03/24/2023 2.9 12/08/2015 3.4 Bilirubin, Total Date Value 03/24/2023 1.2 mg/dL 11/26/2022 0.80 Alkaline Phosphatase Date Value 03/24/2023 1,019 U/L 11/26/2022 1,147 AST Date Value 03/24/2023 124 U/L 11/26/2022 145 ALT Date Value 03/24/2023 56 U/L 11/26/2022 145 Vitamin D 25 Hydroxy (ng/mL) Date Value 03/08/2023 8.0 ] Hemoglobin A1C (%) Date Value 03/08/2023 7.7 11/05/2022 8.4 2022 8.6 02/12/2021 8.8 12/08/2015 8.3 Hemoglobin A1c (%) Date Value 05/22/2021 7.4 09/11/2020 6.4 12/30/2019 6.9 Hemoglobin A1C (POCT) (%) Date Value 12/24/2021 7.5 09/10/2021 7.4 05/22/2021 7.4 09/11/2020 6.4 HGBA1C (%) Date Value 07/30/2019 6.5 04/30/2019 6.6 01/25/2019 8.1 09/10/2018 8.2 05/29/2018 10.3 06/25/2016 7.0 SPIROMETRY: Reviewed in EPIC MICROBIOLOGY: Reviewed MICROBIOLOGY SNAPSHOT Written and verbal health teaching given to patient, patient verbalizes understanding and agrees with treatment plan. I spent a total of 60 minutes on the date of the service which included preparing to see the patient, [id number] patient care, completing clinical documentation, performing a medically appropriate examination, counseling and educating the patient/family/caregiver, ordering medications, tests, or p rocedures, communicating results to the patient/family/caregiver, and care coordination (not separately reported). Electronically Signed: Sally Schneider CNP July 02, 2023 documented in this encounterOhio[facility]23 Miscellaneous Notes* Telephone Encounter - Zaida Santos RN - 07/01/2023 11:46 AM EDT Called patient. C/o decreased energy and appetite, increased coughing at night, blood in sputum, labile blood sugars. Agreeable to appointment with Sally tomorrow at 11 am. Also would prefer to be directly admitted following appointment for IV abx initiation, line placement, and home health care setup. Discussed with Sally and called and arranged for direct admission tomorrow. Patient updated. * Telephone Encounter - Consuelo Child HUC - 07/01/2023 10:43 AM EDT Patient called stating he feels like he's having a flare up and would like to schedule with a CF doctor. Dr. Pete's Bud schedule does not have an opening until mid August. Patient will see Dr. Kilgore if necessary ad possible as well. Please give patient a call to schedule followup in [facility]. documented in this encounterOhio[facility]07-05-2023 History of Present illness Narrative* Jean Pierre Kilgore MD - 06/04/2023 4:02 PM EDT Images from the original note were not included. PULMONARY MEDICINE CYSTIC FIBROSIS FOLLOW UP March 05, 2023 Patient Name: Jay Barber PRIMARY CARE PHYSICIAN: No primary care provider on file. Portions of this note were taken from the note dated 03/26/2023 ASSESSMENT AND PLAN: Jay Barber is a 27 year old male, here for follow-up of Cystic Fibrosis. 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, Trichosporonosis, Aspergillus ---Pancreatic insufficiency - on enzymes with Creon ---CFRD - follows with endocrinology ---CF Liver disease - complicated by portal hypertension, esophageal varices ---Chronic sinusitis ---Anxiety/Depression A CF Pulmonary Exacerbation is resolved We discussed the following today: - spirometry significantly improved, at baseline (best/2nd best at [facility]) - fatigue improving, near baseline -at 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 Kilgore and spirometry, labs CYSTIC FIBROSIS PULMONARY DISEASE AND BRONCHIECTASIS S/p exacerbation early March (Failed PO Bactrim DS PO BID, Levofloxacin 750mg daily 5 days), treated with PICC and home IVs -started on Linezolid and Meropenem 1.5mg. Did not tolerate linezolid due to abdominal pain and rash, started on Vanc. Sent home with home IV abx on Vanc twice daily and meropenem 1.5mg every 8 hrs -CFPEx resolved. FEV1 29% Back to baseline (best FEV1 since 08/2022, 2nd best since transferring to [facility] a year ago) Complicated by chronic respiratory tract infection with PsA, Burkholderia vietnamiensis (sent to [facility] in 2019), MRSA Lung Function ---Baseline FEV1 is 28 % predicted. Anti-inflammatory therapy and Airway obstruction ---not on Azithromycin due to prior NTM ---Patient doing acapella twice daily ---dornase every day when ill Chronic maintenance regimen: CFTR modulators: Trikafta - was on adjusted dosing due to Cirrhosis - reports taking 2 orange pillson even days of the month and 1 orange pill on odd days of the month, No blue pills Pulmozyme: once daily when ill Hypertonic saline: has at home but not currently using Chronic Azithromycin (anti-inflammatory): No (on hold due to prior NTM) Inhaled Abx: Cayston (off this month) Ibuprofen: No Nebulized short-acting bronchodilator: albuterol as needed Nebulized other: PEP device: has acapella VEST: not currently using ICS: Advair 500/50mg 2 puffs BID Oral prednisone: as needed, not currently on Pulm rehab: not currently using Supplemental oxygen use: no Exercise and minutes per week: brisk walking/ lifting, 2 hrs per week Recommended ORDER OF AIRWAY CLEARANCE: Albuterol, Hypertonic, VEST (with hypertonic), pulmozyme, Inhaled antibiotics, Inhaled corticosteroids 2. ADVANCED LUNG DISEASE (criteria: FEV1 < 40) and CHRONIC HYPOXEMIC RESPIRATORY FAILURE ---Supplemental oxygen: no ---BIPAP: no ---Pulmonary rehab: no ---ECHO: will need to repeat (last done 07/21/2022) ---Weight: BMI of 15.88 (03/05/2023) ---Discussed lung transplantation: yes, during recent hospitalization with Dr. Pinon 03/06/2023 - not currently interested, but willing to discuss ---Referred for lung transplantation: not at this time per patient preference 3. CHRONIC RESPIRATORY TRACT PSEUDOMONAS AND BURKHOLDERIA ([place]iensis) ---Mucoid phenotype ---Inhaled antibiotic: previously used cayston montly alternating with MUKESH podhaler - restarted Cayston in December 2022. Does have the altera device ---Not on chronic azithromycin due to NTM ---Oral antibiotic that patient responds to: Cipro and Bactrim ---IV abx that patient responds to: IV TOBRAMYCIN, meropenem, vancomycin 4. CYSTIC FIBROSIS PANCREATIC INSUFFICIENCY ---No generic enzymes, ever. ---Creon 36,000, 3-4 BEFORE meals AND 2-3 BEFORE snacks ---Fat soluble supplemental vitamins: Vitamin K 40 mcg daily ---CF Vitamins: MVI 2 daily ---Vitamin D2 50,000 weekly Latest Reference Range & Units 07/27/22 04:02 11/06/22 16:08 03/08/23 00:50 Vitamin D 25 Hydroxy 31.0 - 80.0 ng/mL 16.0 (L) 9.1 (L) 8.0 (L) (L): Data is abnormally low 5. CYSTIC FIBROSIS LIVER DISEASE --- s/p acute transaminitis related to IV abx in March, trikafta held but restarted March 2023 --- cirrhosis complicated by esophageal varices, portal hypertension --- Actigall restarted during last hospitalization - --- last RUQ US in 07/27/2022 - cirrhotic liver morphology. No focal hepatic lesions, fatty replacement of the pancreas compatible with underlying cystic fibrosis, mild splenomegaly --- last EGD - 07/30/2022 - small (<5mm) varices were found in the lower third of the esophagus. The entire examined stomach was normal. The examined duodenum was normal. --- last saw hepatology on 07/30/2022 while inpatient - requested hepatology outpatient follow-up --- on mephyton 5mg MWF 6. CYSTIC FIBROSIS RELATED DIABETES ---The standard medical therapy for CFRD is subcutaneous insulin ---Patient currently on insulin therapy ---Self monitored blood glucose 3 times per day ---Patient has a CGM: NO ---Most recent hgA1c noted. ---Had ophthalmology retinal exam: needs to be done ---Urine albumin/creatinine ratio done: needs to be done ---Following with Dr. Francis Ramirez at [facility], last seen 04/07/2023 Latest Reference Range & Units 07/17/22 10:26 11/05/22 14:31 03/08/23 00:50 Hemoglobin A1C 4.3 - 5.6 % 8.6 (H) 8.4 (H) 7.7 (H) (H): Data is abnormally high 7. CHRONIC PANSINUSITIS Sinuses can be a reservoir of bacterial infection and contribute to recurrent lower respiratory tract infections, especially in patients infected with Pseudomonas Symptoms are stable Nasal polyps - unknown? ---Antihistamine: zyrtec ---Nasal steroid: flonase ---Montelukast: added but discussed possible changes with mood ---If not improving with restart sinus medications - will obtain CT sinus and referral to ENT - would like to hold off on this for now given most likely related to change in weather ---Referral to ENT for surgical eval. Appt [phone]. 8. Severe protein calorie malnutrition - continue ensures 9. Prior Invasive Pulmonary Aspergillus infection/Trichosporonosis - treated with voriconazole by ID cosmetic consultant Dr. Burke France in 2019 for 1 year 10. Depression/Anxiety ---continues on celexa 20 mg PO daily - refilled 11/20/2022 and restarted 11. HTN ---amlodipine 10 mg PO daily (had hyperkalemia with SEVERINO-I) 12. Proteinuria --- previously seen by Dr. Ahuja in nephrology ANNUAL SCREENING: Annual labs: will need OGTT: CFRD EYE EXAM TO CHECK FOR CATARACTS: WILL NEED DEXA: NEEDS LIVER US/Fibroscan: NEEDS for 2022 (last done 07/27/22) Colonoscopy: Start screening at age 35-40 years in CF due to increased risk of GI carcinoma: not ofage Immunization History Administered Date(s) Administered COVID-19 original vaccine, age 12+ yr, monovalent ([employer] - PURPLE TOP) 12/24/2020 01/21/2021 12/05/2021 COVID-19 vaccine, age 12+ yr, bivalent ([employer]) 12/04/2022 Haemophilus influenzae b (HbOC) vaccine, 4-dose series (HIBTITER) 1993 01/11/1994 05/20/1994 02/13/1995 Haemophilus influenzae b (Hib PRP-T) vaccine, 4-dose series (ACTHIB, HIBERIX) 07/16/1995 diphtheria tetanus pertussis (DTP) vaccine 1993 01/11/1994 05/20/1994 02/13/1995 07/16/1995 07/18/1999 hepatitis B (HepB) vaccine, 3-dose series, age 0 yr - 19 yr (ENGERIX B-PEDS, RECOMBIVAX HB-PEDS) 1993 1993 05/20/1994 influenza (IIV3) vaccine, trivalent (AFLURIA, FLULAVAL, FLUVIRIN, FLUZONE) 10/23/2011 09/13/2013 11/05/2018 influenza (IIV4) vaccine, age 6 mo - 64 yr, quadrivalent (AFLURIA, FLULAVAL, FLUZONE) 12/04/2022 influenza (IIV4) vaccine, age 6 mo - 64 yr, quadrivalent, PF (AFLURIA, FLUARIX, FLULAVAL, FLUZONE) 09/02/2016 10/11/2019 influenza (IIV4) vaccine, quadrivalent (AFLURIA, FLULAVAL, FLUZONE) 11/05/2018 influenza vaccine, whole virus 10/03/2010 measles mumps rubella (MMR) vaccine (M-M-R II, PRIORIX) 02/13/1995 06/13/1999 meningococcal (MenACWY-D) vaccine, quadrivalent (MENACTRA) 05/27/2012 meningococcal (MenACYW) vaccine, quadrivalent, unspecified formulation 05/27/2012 novel influenza (H7N4-85) vaccine, PF 10/19/2009 pneumococcal (PCV13) vaccine, 13 valent (PREVNAR 13) 05/26/2019 pneumococcal (PCV7) vaccine, 7 valent (PREVNAR 7) 01/08/2006 pneumococcal (PPV23) vaccine, 23 valent (PNEUMOVAX 23) 10/23/2011 07/28/2019 poliovirus (IPV) vaccine, inactivated (IPOL) 1993 01/11/1994 05/20/1994 02/13/1995 tetanus diphtheria pertussis (Tdap) vaccine, age 7+ yr (ADACEL, BOOSTRIX) 05/29/2012 CHIEF COMPLAINT: Cystic Fibrosis HISTORY OF PRESENT ILLNESS: Jay Barber is a 27 year old male, here for follow-up of Cystic Fibrosis. Treated in March for a CFPEx, failed PO and treated with IV antibiotics. Has had gradual improvement of pulmonary status - minimal ongoing fatigue with exertion. Still with substantial chest and sinus congestion. Cough and sputum minimal. Some SOD, especially with poor air quality recently.Evelyn using pulmozyme if significant sxs. Using Cayston on off28; currently off. Glucoses 160-220. Saw Endo in March. Taking Basaglar 6 units with meals Taking enzymes with meals, weight up 1/2 kg. Courses of oral abx since last visit:0 Courses of IV abx since last visit:0 Prednisone use since last visit: 0 ED visits since last visit: 0 Hospitalizations since last visit: 0 Prior exacerbation treatments per [facility] Procedures & IV/Oral Course: -12/15/95-12/23/95 Hospitalized d/t CF, Influ A, DM- IV ABX, BS monitoring -02/24/96-03/01/96 Hospitalized d/t CF exacerbation and DM- IV Cefuroxime -03/01/96 Home Treatment - CF exacerbation - IV Cefuroxime --- -06/15/97-06/21/97 Hospitalized - CF exac.-IV Tobra and Timentin -06/21/97 Home Treatment -CF exacerbation IV Tobra and Timentin --- -08/07/99-08/10/99 Hospitalized - BS out of control - Insulin started, IV Zosyn and Tobra -08/10/99 Home Treatment -CF exacerbation IV Zosyn and Tobra --- -03/19/00-03/22/00 Hospitalized - CF exacerbation - IV Zosyn and Tobra - 03/22/00 Home Treatment -CF exacerbation IV Zosyn and Tobra -04/14/00-04/17/00 Hospitalized - viral illness, fever - PFTs, labs, airosols, PD -08/10/00-08/20/00 Hospitalized - FUO - CT Chest and Gallium Scan (bronchiectasis RUL and LLL --- -02/18/01 OPS- Colonoscopy and biopsy, r/o fibrosing colonopathy --- -03/10/02-03/14/02 Hospitalized -CF exacerbation - IV Tobra and Meropenem -03/14/02-03/24/02 Home Treatment - CF exacerbationIV Tobra and Meropenem --- -06/15/03-06/16/03 Hospitalized - CF exacerbation, chronic bronchitis, D.M. - IV Tobra and Meropenen -06/16/03-06/29/03 Home Treatment -CF exacerbation IV Tobra and Meropenem --- -12/07/2003 Home Treatment - Zyvox x14 days -01/09/2004 Home Treatment - CF exacerbation IV Cefoxitin and po Biaxin treatment atypical mycobacteria -02/08/2004-02/22/2004 Hospitalized - CF exacerbation - IV course of Vancomycin, Tobramycin, and Meropenem x14 days total -09/25/2004 Home Treatment - Cipro x21 days -10/18/2004- 10/24/2004 Hospitalized - CF exacerbation - IV course of Meropenem and Tobramycin and Bactrim po x14 days total -11/21/2004 Home Treatment - Cipro and Duricef x14 days --- -12/26/2004 Home Treatment - Cipro and Duricef x14 days -02/11/2005 Home Treatment - Cipro x14 days -02/27/2005 Home Treatment - po Cipro x7 more days and Prednisone x5 days --- -08/05/2006 Home Treatment - po Bactrim x14 days -09/24/2006 Home Treatment - po Zyvox x14 days -10/11/2006 to 10/17/2006 Hospitalized - CF exacerbation - IV course of Tobramycin, IV Timentin, and IV Zyvox later changed to IV Vancomycin because of pancytopenia- completed three weeks at home -11/26/2006 Home Treatment - po Cipro and po Zyvox x21 days --- -02/10/2007 Home Treatment - po Cipro and po Bactrim x14 days -04/03/2007 to 04/08/2007 Hospitalized - CF exacerbation with first hemoptysis- IV course of Tobramycin, IV Ceftazidime and IV Zyvox continued at home until 04/17/2007- short of three weeks because of thrombocytopenia -04/22/[address] Trejo- low platelets and low white count most likely from cobination of hypersplenism, illness and antibiotics -05/04/[address] 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 --- -06/27/08 - 07/01/08 Hospitalized - CF exacerbation - IV course of Meropenem, Tobramycin and Linezolid. IVs continued at home for total 3 wks. -10/26/08 Home Treatment - PO Cipro and Bactrim DS x 21 days -11/21/08 - 11/28/08 Hospitalized -CF exacerbation - IV course of Timentin, Vancomycin and Tobramycin. IVs continued at home for total 3 wks --- -01/25/09 Home Treatment - PO Zyvox x 10 days -02/01/09 Home Treatment - PO Bactrim DS x 7 days due to rash possibly due to Zyvox (was on for 6 days) -08/23/2009 Hospital/Home CF exacerbation, IV Meropenem, Tobramycin, Vancomycin X 3 weeks --- -04/11/2010 Home treatment Zyvox po X 14 days -04/29/2010-05/02/2010 Hospital: GI bleed secondary to esophageal varices -05/24/2010 OPS: Upper endoscopy with banding of esophageal varices -06/26/2010 Hospital/Home IV -CF exacerbation - 2 weeks Meropenem, Tobramycin, Vancomycin -09/09/2010 Hospital/Home IV CF exacerbation- X 24 days (Pulm. exacerbation with hemoptysis) Meropenem, tobramycin, Vancomycin -10/29/2010 Home treatment Zyvox po X 2 weeks -11/13/2010 Hospital/surgery at [place]: Splenorenal shunt --- -03/13/2011 Home treatment Bactrim po X 21 days -09/18/11 - cipro and rifampin x 14 days -10/23/11 - restart cipro and rifampin x 14 days -11/15/11 - CF exacerbation - Admit for IV start; Meropenem, tobramycin, vancomycin until 12/18/11 --- -02/19/2012 Cipro and Bactrim x14 days -09/03/12 - cipro and bactrim x 14 days --- -12/09/2012- bactrim and cipro x 14 days -01/15/13 admit Hospitalized - CF Exacerbation: IV larisa, tobra cont at home, finish PO zyvox -01/30/13 - Hospitalized - CF Exacerbation: IV larisa, tobra, vanco contd at home, also PO itraconazole & bactrim -06/21/13- 06/25/13 Hospitalized - CF Exacerbation: IV vanc & ceftaz. cont'd at home -07/23/13 diflucan x 1 tab -08/25/13- cipro and bactrim x 14 days over phone -09/03/2013- 10/06/13 -: home IV Zyvox, IV Vancomycin, po Bactrim --- - 12/08/2013 Zyvox x21 days - 03/16/14 Cipro and bactrim over phone - 04/11/14 Admit - CF Exacerbation and home on IV Meropenem and IV Vancomycin until 04/27/14 - 06/29/14- 07/04/14 for hemoptysis. Was started on IV antibiotics which were d/c'd due to low WBC - 07/27/14 Cipro & Bactrim x14 days - 08/22/14 Cipro & Bactrim - 08/26/14 Admit 23 hours- CF Exacerbation Home on IV Meropenem, IV Vancomycin and IV Tobramycin - 10/28/14 Cipro & Bactrim x14 days - 11/14/14-11/15/2014 Admit CF Exacerbation Home on IV Meropenem, IV Vancomycin, and IV Tobramycin - 11/22/[address] --- IV continued until 12/07/2014 - 02/10/15 Home IVs CF Exacerbation IV Meropenem, IV Vancomycin, and IV Tobramycin - 08/23/2015 Home IVs CF Exacerbation IV Meropenem, IV Vancomycin, and IV Tobramycin ---- - 09/02/16 - Home IV's Larisa/tobra/vanco - 09/16/16 - Po prednisone added x5 days in addition to IV's --- - 07/14/17 - PO Cipro/Bactim - 08/27/17 - Home IV- Vanco/Larisa/Tobra - 01/19/18 - PO Cipro/Bactrim - 02/09/18 - PO Cipro/Zyvox - 02/23/18 - Home IV Larisa/Tobra/Vanco - 05/27/18 - Home IV Vanco/Tobra/Meropenem - 09/14/18 - PO Doxy - 10/19/18 - PO Cipro/Bactrim ----- - 12/28/18 - Home IV Larisa/Vanco/Tobra ------ - 03/19/21- PO Levaquin/Minocycline 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) Transfusion history Type 1 diabetes mellitus with hyperglycemia (HCC) PAST SURGICAL HISTORY Procedure Laterality Date PAST SURGICAL HISTORY OF splenal renal shunt to treat portal hypertension PICC LINE INSERT/CONSULT 03/08/2023 FAMILY HISTORY Problem Relation Age of Onset Hypertension Mother Breast Cancer Other other (hypercholesterolemia) Other other (heart disease in female family member before age 65) Other Social History Tobacco Use Smoking status: Never Smokeless tobacco: Never Vaping Use Vaping Use: Never used Substance Use Topics Alcohol use: No Drug use: No ALLERGIES: ALLERGIES Allergen Reactions Vancomycin Itching, Rash Gets Red Man syndrome and pt if not premedicated with benadryl prior to Vancomycin infusions. Cefoxitin Rash, Other: See Comments Severe abdominal pain, diarrhea, rash Severe Abdominal Pains CURRENT OUTPATIENT MEDICATIONS: fluticasone (FLONASE) 50 mcg/actuation nasal spray Use 1-2 Sprays in each nostril once daily. fluticasone (FLOVENT) 220 mcg/actuation inhaler Inhale 1 Puff as instructed twice daily. Blood-Glucose Meter,Continuous (DEXCOM G7 CODER OPERATOR) [facility] For monitoring sugars Blood-Glucose Sensor (DEXCOM G7 SENSOR) jean-paul One sensor every 10 days insulin lispro (HUMALOG KWIKPEN INSULIN) 100 unit/mL Dose varies units with meals and sliding scale, using about 30 total units a day Insulin Calvin, Disposable, (BD ULTRA-FINE YARON PEN NEEDLE) 32 gauge x 5/32 5x/day glucagon (BAQSIMI) 3 mg/actuation nasal spray Use 1 Calvin in the nose as needed. May repeat after 15 minutes using a new device if there is no response for severe low blood sugar event insulin glargine (BASAGLAR KWIKPEN U-100 INSULIN) 100 unit/mL (3 mL) Inject 8 units subcutaneously at bedtime aztreonam lysine (CAYSTON) 75 mg/mL nebulizer solution Inhale 1 mL as instructed three times daily.28 days on 28 days off Send altera nebulizer with each shipment dornase christi (PULMOZYME) 1 mg/mL nebulizer solution Inhale 2.5 mL as instructed once daily. cetirizine (ZYRTEC) 5 mg tablet Take 10 mg by mouth once daily. carvedilol (COREG) 6.25 mg tablet Take 1 tablet by mouth twice daily with meals. qjzunsgbkzo-ldqekzqosc-yphjfybhw (TRIKAFTA) 100-50-75 mg(d) /150 mg (n) tablet Take 2 tablets by mouth every 48 hours. Take 2 orange tablets on even number days. Then take 1 tablet on Odd number days. Discard blue tablets. DO NOT crush, chew, or open. montelukast (SINGULAIR) 10 mg tablet Take 1 tablet by mouth daily at bedtime. citalopram hydrobromide (CELEXA) 20 mg tablet Take 1 tablet by mouth once daily. ursodiol (ACTIGALL) 300 mg capsule Take 300 mg by mouth twice daily. Nebulizers 1 Each three times daily. albuterol HFA (PROAIR HFA) 90 mcg/actuation inhaler Inhale 2 Puffs as instructed every 4 hours as needed for wheezing/shortness of breath. VITAMIN D2 1,250 mcg (50,000 unit) capsule Take 1 capsule by mouth two times a week. fluticasone-salmeterol (ADVAIR) 500-50 mcg/dose dsdv Inhale 1 Puff as instructed twice daily. CREON 36,000-114,000- 180,000 unit capsule Take 3 capsules by mouth. With every meal Nebulizers 1 Each three times daily. REVIEW OF SYSTEMS GENERAL: No weight loss, malaise or fevers RESPIRATORY: minimal cough, but baseline congestion (head and chest) CARDIOVASCULAR: no chest pain, palpitations, orthopnea GI: No nausea, vomiting, or diarrhea ENDOCRINE: Negative for cold or heat intolerance, polyuria, polydipsia and goiter NEURO: No history of headaches, syncope, paralysis, seizures or tremors PHYSICAL EXAMINATION: VITAL SIGNS: BP 110/70 Pulse 86 Temp (Src) 99 (Temporal) Resp 19 Ht 5' 2.402 (1.59m) Wt 89 lb 4.8 oz (40.5kg) SpO2 98% BMI 16.12 kg/(m^2). PHYSICAL EXAMINATION: General appearance: normal appearance, not ill. No cough in office Skin: Skin color, texture, turgor normal, no suspicious rashes or lesions Head: NCAT, thin Eyes: Anicteric sclera. Pupils are equally round and reactive to light. Extraocular movements are intact. Ears: External ears normal Nose/Sinuses: nares patent, minimal erythema and coblestoning. Oropharynx: Lips, mucosa, and tongue normal, teeth and gums normal, oropharynx normal Neck: Supple, no adenopathy; thyroid symmetric, normal size, no bruits Back: Normal exam Lungs: prolonged expiration, but no rales or rhonchi (best exam recently. Minimal adventitial noises. Heart: RRR without murmur, gallop, or rubs. No ectopy Abdomen: Normal abdominal exam Extremities: No deformities, edema, skin discoloration, or cyanosis. Moderate clubbing. Good capillary refill. Musculoskeletal: No joint swelling, deformity, or tenderness Peripheral pulses: Normal Neuro: Gait normal. Reflexes normal and symmetric. Sensation grossly intact. DATA: Diagnostic tests reviewed for today's visit were personally reviewed by me: Sputum culture results and PFTs LAST LAB RESULTS: ---Reviewed in [facility] CBC with diff: WBC 6.65 03/24/2023 RBC 4.18 03/24/2023 Hemoglobin 12.9 03/24/2023 Hematocrit 38.6 03/24/2023 MCV 92.3 03/24/2023 MCH 30.9 03/24/2023 MCHC 33.4 03/24/2023 RDW-CV 12.7 03/24/2023 Platelet Count 244 03/24/2023 MPV 10.1 03/24/2023 Neutrophils % 56.6 03/24/2023 Lymph% 24.5 03/24/2023 [place]% 7.4 03/24/2023 Eosin% 16.6 11/26/2022 Baso% 1.1 03/24/2023 Abs Neut (Segs + Bands) 3.77 03/24/2023 Abs [place] 0.49 03/24/2023 Abs Eosin 0.66 03/24/2023 Abs Baso 0.07 03/24/2023 Glucose (mg/dL) Date Value 03/24/2023 249 12/08/2015 113 Potassium Date Value 03/24/2023 4.8 mmol/L 11/26/2022 4.4 Sodium Date Value 03/24/2023 134 mmol/L 12/08/2015 139 mEq/L Chloride Date Value 03/24/2023 100 mmol/L 12/08/2015 102 mEq/L CO2 Date Value 03/24/2023 26 mmol/L 12/08/2015 31 mEq/L Creatinine Date Value 03/24/2023 0.83 mg/dL 11/26/2022 1.16 MG/DL BUN (mg/dL) Date Value 03/24/2023 13 12/08/2015 16 Anion Gap Date Value 03/24/2023 8 mmol/L 12/08/2015 11 Calcium (mg/dL) Date Value 12/08/2015 9.3 Calcium, Total (mg/dL) Date Value 03/24/2023 8.9 Protein, Total (g/dL) Date Value 03/24/2023 8.6 12/08/2015 9.5 Albumin (g/dL) Date Value 03/24/2023 2.9 12/08/2015 3.4 Bilirubin, Total Date Value 03/24/2023 1.2 mg/dL 11/26/2022 0.80 Alkaline Phosphatase Date Value 03/24/2023 1,019 U/L 11/26/2022 1,147 AST Date Value 03/24/2023 124 U/L 11/26/2022 145 ALT Date Value 03/24/2023 56 U/L 11/26/2022 145 Vitamin D 25 Hydroxy (ng/mL) Date Value 03/08/2023 8.0 ] Hemoglobin A1C (%) Date Value 03/08/2023 7.7 11/05/2022 8.4 2022 8.6 02/12/2021 8.8 12/08/2015 8.3 Hemoglobin A1c (%) Date Value 05/22/2021 7.4 09/11/2020 6.4 12/30/2019 6.9 Hemoglobin A1C (POCT) (%) Date Value 12/24/2021 7.5 09/10/2021 7.4 05/22/2021 7.4 09/11/2020 6.4 HGBA1C (%) Date Value 07/30/2019 6.5 04/30/2019 6.6 01/25/2019 8.1 09/10/2018 8.2 05/29/2018 10.3 06/25/2016 7.0 SPIROMETRY: Reviewed in [facility] SPIROMETRY BASELINE ONLY ([id number]) - ordered on 03/26/23 No textual results for order. ID: [id number] Name: JAY BARBER Race: White Ht: 62.01 in Wt: 89.29 lbs Age: 27 Gender: Male : 1995 Dx: Cystic Fibrosis - Unspecified. May include CFTR disorder. Smoking Hx: Non-smoker Doctor: SHE PETE Test Date: 06/04/2023 Site: [facility] [employer]: [place] PRE-BRONCH POST-BRONCH Pre LLN Pred ULN %Pred Post %Pred %Chg SPIROMETRY FVC (L) 2.77 2.85 3.66 4.48 75 FEV1 (L) 0.92 2.44 3.14 3.80 29 FEV1/FVC 0.33 0.75 0.86 0.95 38 PEF L/s (L/sec) 3.86 6.74 8.56 10.37 45 FEF50 (L/sec) 0.32 2.01 4.14 6.26 7 FIF50 (L/sec) 2.95 FEF50/FIF50 0.11 90-100 FIVC (L) 2.65 GVU24-48 (L/sec) 0.28 2.32 3.73 5.47 7 Time (sec) 14.66 FET PEF (sec) 0.04 MACIEL (L) 0.02 Vol Extrap % (%) 1 SPIROMETRY BASELINE ONLY ([id number]) - ordered on 03/19/23 No textual results for order. ID: [id number] Name: JAY BARBER Race: White Ht: 62.01 in Wt: 90.39 lbs Age: 27 Gender: Male : 1995 Dx: Cystic fibrosis_ Smoking Hx: Non-smoker Doctor: SALLY SCHNEIDER Test Date: 03/19/2023 Site: [facility] [employer]: [place], [place] PRE-BRONCH POST-BRONCH Pre LLN Pred ULN %Pred Post %Pred %Chg SPIROMETRY FVC (L) 2.39 3.28 4.07 4.87 58 FEV1 (L) 0.80 2.75 3.44 4.11 23 FEV1/FVC 0.34 0.73 0.84 0.94 39 PEF L/s (L/sec) 3.54 6.74 8.55 10.37 41 FEF50 (L/sec) 0.28 2.02 4.15 6.27 6 FIF50 (L/sec) 2.97 FEF50/FIF50 0.10 90-100 FIVC (L) 2.38 CFY78-09 (L/sec) 0.24 2.33 3.74 5.48 6 Time (sec) 14.38 FET PEF (sec) 0.04 MACIEL (L) 0.02 Vol Extrap % (%) 1 SPIROMETRY BASELINE ONLY ([id number]) - ordered on 03/05/23 No textual results for order. ID: [id number] Name: JAY BARBER Race: White Ht: 62.01 in Wt: 86.86 lbs Age: 27 Gender: Male : 1995 Dx: Cystic Fibrosis - Unspecified. May include CFTR disorder. Smoking Hx: Non-smoker Doctor: SHE PETE Test Date: 03/05/2023 [facility] [place]: Kaylen [place] PRE-BRONCH POST-BRONCH Pre LLN Pred ULN %Pred Post %Pred %Chg SPIROMETRY FVC (L) 2.43 3.28 4.07 4.87 59 FEV1 (L) 0.86 2.75 3.44 4.11 24 FEV1/FVC 0.35 0.73 0.85 0.94 41 PEF L/s (L/sec) 3.95 6.74 8.55 10.37 46 FEF50 (L/sec) 0.33 2.02 4.15 6.27 8 FIF50 (L/sec) 3.13 FEF50/FIF50 0.11 90-100 FIVC (L) 2.14 UJB28-09 (L/sec) 0.25 2.33 3.74 5.48 6 Time (sec) 14.16 FET PEF (sec) 0.04 MACIEL (L) 0.02 Vol Extrap % (%) 1 SPIROMETRY BASELINE ONLY ([id number]) - ordered on 12/04/22 ID: [id number] Name: MESSI BARBERLON Race: White Ht: 62.01 in Wt: 89.51 lbs Age: 27 Gender: Male : 1995 Dx: Cystic fibrosis_ Smoking Hx: Non-smoker Doctor: SHE PETE Test Date: 12/04/2022 Site: [facility] [place]: [place] PRE-BRONCH POST-BRONCH Pre LLN Pred ULN %Pred Post %Pred %Chg SPIROMETRY FVC (L) 2.16 3.29 4.08 4.88 52 FEV1 (L) 0.75 2.75 3.44 4.11 21 FEV1/FVC 0.35 0.73 0.85 0.94 40 PEF L/s (L/sec) 3.59 6.73 8.55 10.37 41 FEF50 (L/sec) 0.24 2.03 4.16 6.28 5 FIF50 (L/sec) 2.45 FEF50/FIF50 0.10 90-100 FIVC (L) 2.04 TBS49-57 (L/sec) 0.20 2.34 3.75 5.49 5 Time (sec) 14.92 FET PEF (sec) 0.04 MACIEL (L) 0.02 Vol Extrap % (%) 1 Comments: ATS/ERS acceptability and repeatability standards for spirometry met. //KS SPIROMETRY BASELINE ONLY ([id number]) - ordered on 11/20/22 PRE-BRONCH POST-BRONCH Pred LLN ULN Actual %Pred Actual %Chng SPIROMETRY FVC (L) 4.08 3.29 4.88 2.34 57 FEV1 (L) 3.44 2.75 4.11 0.82 23 FEV1/FVC 0.85 0.73 0.94 0.35 41 FEF25 (L/sec) 0.54 FEF50 (L/sec) 4.16 2.03 6.28 0.27 6 FEF75 (L/sec) 1.51 0.80 2.67 0.10 6 XMK45-97 (L/sec) 3.75 2.34 5.50 0.22 5 PEF L/s (L/sec) 8.55 6.73 10.37 3.81 44 FIVC (L) 2.25 FIF50 (L/sec) 2.88 PIF (L/sec) 3.14 Time (sec) 14.45 MACIEL (L) 0.02 FET PEF (sec) 0.04 SPIROMETRY BASELINE ONLY ([id number]) - ordered on 11/05/22 PRE-BRONCH POST-BRONCH Pred LLN ULN Actual %Pred Actual %Chng SPIROMETRY FVC (L) 4.08 3.29 4.88 1.72 42 FEV1 (L) 3.44 2.75 4.11 0.62 17 FEV1/FVC 0.85 0.73 0.94 0.36 42 FEF25 (L/sec) 0.42 FEF50 (L/sec) 4.16 2.04 6.28 0.22 5 FEF75 (L/sec) 1.51 0.80 2.68 0.10 6 VIX42-56 (L/sec) 3.75 2.34 5.50 0.17 4 PEF L/s (L/sec) 8.55 6.73 10.37 2.68 31 FIVC (L) 1.30 FIF50 (L/sec) 2.06 PIF (L/sec) 2.06 Time (sec) 13.10 MACIEL (L) 0.03 FET PEF (sec) 0.07 MICROBIOLOGY: Reviewed MICROBIOLOGY SNAPSHOT Written and verbal health teaching given to patient, patient verbalizes understanding and agrees with treatment plan. Electronically Signed: Jean Pierre Kilgore MD, MBA, [facility] Adult Cystic Fibrosis and Bronchiectasis [place] [facility] Adult CF Patients [phone]. Adult patients use option #2 Bronchiectasis (Non-CF) Patients [phone] Lump Room Supervisor: Nell Lozano [phone] Email: [email or web address] Office: [phone] June 04, 2023 MICROBIOLOGY: Reviewed MICROBIOLOGY SNAPSHOT 03/05/2023 Culture Few Burkholderia cepacia complex Abnormal Many normal respiratory vicky Abnormal No Pseudomonas aeruginosa isolated. No Staphylococcus aureus isolated. 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 Adult patients use option #2 Bronchiectasis (Non-CF) Patients [phone] Lump Room Supervisor: Nell Lozano [phone] Email: [email or web address] Office: [phone] March 05, 2023 documented in this encounterOhiohealth [facility] Hospital07-05-2023 History of Present illness Narrative* Kalyen Pilo Solomon - 06/04/2023 3:36 PM EDT PULM FUNCTION SMARTBLOCK: Provider: Jean Pierre Kilgore MD Spirometry: 1 documented in this encounterOhiohealth [facility]07-03-2023 Miscellaneous Notes* Telephone Encounter - Zaida Santos RN - 06/02/2023 4:12 PM EDT Called patient regarding abdominal xray results. Patient states he had not been taking Miralax thispast week as he should. Educated patient to start taking Miralax again as he has done previously (2to 3 times a day). No further questions/concerns from patient at this time. documented in this encounterOhiohealth Mansfield Hospital07-03-2023 History of Present illness Narrative* Radha Johnson RT(R) - 06/02/2023 2:50 PM EDT Radiology Service Progress Note PATIENT NAME: Jay Barber DATE OF SERVICE: June 02, 2023 TIME: 3:02 PM PATIENT IDENTITY VERIFICATION COMPLETED USING TWO (2) IDENTIFIERS: Name and Date of confirmedby patient verbally. FALL SCREENING: Has the patient had 2 falls in the last year or 1 fall with injury or currently using an Ambulatory Assistive Device (Walker, Cane, Wheelchair, Crutches, etc.)? 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 ([birth year]1994 - [place] [address]) Other medical complications: Exacerbations in the last 12 months: 3 Dates of IV in hospital: 07/26/22-08/01/22( then home IVs); 11/05-11/11/22 (sent on home IVs); (d/c on home IVs) Dates of IVs at home: FEV1%: 23% 03/19/23 stable drops to upper teens with exacerbations; Low 20's when finished with IV abx FEV1%trend: BMI: 16.97 BMI Trend: RD ANNUAL VISIT Needed: Yes, needs RT ANNUAL VISIT Needed: Done in 2022 ANNUAL VISIT Needed: Needs Mental health screen: Needs ANNUAL Labs Needed: Done in March 2023 Last OGTT/CFRD: Has CFRD Dexa: Needs T/Z = > -1.0 - every 5 years T/Z = -1.0 to -2.0 - every 2-4 years T/Z = < -2.0 - every 1 year Colonoscopy (age > 35) WNL-every 5 years Abnormal-every 3 or sooner Abdominal Ultra Sound: 07/2022 cirrhosis (Every 2 years if LFT's normal) Chronic Medications (List why If not on medication): CFTR modulators: Trikafta liver dosing Pulmozyme: Daily Hypertonic saline: not using but has at home Chronic Azithromycin (anti-inflammatory): On hold due to NTM Inhaled Abx: No 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 05/19 Fernando called him to f/[facility] improving Other issues: Plan for visit: culture documented in this encounterOhiohealth Mansfield Hospital06-28-2023 Miscellaneous Notes* Telephone Encounter - Daniel Goel - 05/28/2023 11:46 AM EDT Patient called requesting a follow-up appointment with Dr. Pete or Dr. Kilgore. Admin has sent a message to schedulers to contact patient for an appointment. [phone] documented in this encounterOhiohealth Mansfield Hospital06-19-2023 Miscellaneous Notes* Telephone Encounter - Fernando Zhang RD - 05/19/2023 3:09 PM EDT Spoke with patient regarding recent symptoms of abdominal pain, no BMs. Patient reports he has beendoing Miralax TID and he has been having some BMs, but not totally eliminating. Abdominal pain is improved, but not totally better. Reports appetite has improved (has previously not been eating for ~3 days). Plan for the following: Obtian abdominal xray locally, orders entered Start Miralax 34 grams every 3 hours until cleared out Can then titrate to 17 g 1-2 times daily for daily BMs Stay well hydrated with water/gatorade while doing clean out Contact us with any changes in symptoms Will follow up with patient this week to reassess Fernando Zhang RD documented in this encounterOhiohealth Mansfield Hospital05-08-2023 Instructions* Patient Instructions* Stephie Ramirez APRN.CNP - 04/07/2023 2:45 PM EDT Your new insulin regimen: Long acting insulin: Insulin used for this is called: Basaglar Bedtime dose 8 units Rapid acting /mealtime insulin: Insulin used for this is called: Humalog or Novolog insulin unit:grams of carb ratio Meal time dosin:25 Your sliding scale, for additional units of the rapid acting insulin: Insulin used for this is called: Humalog or Novolog Take this at meals, in addition to the above doses. If glucose reading is: 150-175 Take an additional 0 Units. 176-200 Take an additional 0 Units. 201-225 Take an additional 1 Units. 226-250 Take an additional 1 Units. 251-275 Take an additional 1 Units. 276-300 Take an additional 1 Units. 301-325 Take an additional 2 Units. 326-350 Take an additional 2 Units. 351-375 Take an additional 2 Units. 376-400 Take an additional 2 Units. Over 400 Take an additional 3 Units. documented in this encounterOhiohealth Mansfield Hospital05-08-2023 History of Present illness Narrative* Stephie Ramirez APRN.ARIAS - 04/07/2023 2:39 PM EDT Subjective Date of encounter: 04/07/2023 Jay Barber (1995), is a 27 year old male who presents for Diabetes management Important Lab History: HBA1C:10/2013: 10.8%, 12/2013: 7.4%, 03/2014: 9.6%, 03/2014: 8.1%, 05/2014: 6.7%, 05/2015: 6.9%, 08/2015: 8.4%, 12/2015: HbA1c 8.3%, 03/2016: 8.9%, 05/2016: 7.0%, 01/2018: 9.6%, 05/2018: 10.3%, 08/2018: 8.2%, 10/2018: 7.9%, 01/2019: 8.1%, 03/2019: 6.6%, 07/2019: 6.5%, 12/2019: 6.9%, 07/2020: 6.6%, 08/2020: 6.4%, 01/2021: HbA1C 8.3%, 03/2021: 8.3%, 05/2021: 7.4%, 08/2021: 7.4%, 12/2021: 7.5%, 07/2022: 8.6%, 10/2022: 8.4%, 03/2023: 7.7% Thyroid Function Testin10/2013: TSH 2.29 (0.358-3.740), free T4 1.02 (0.76- 1.46), 12/2015: TSH 1.970 (0.358-3.740 uIU/mL), free T4 1.15 (0.76-1.46 ng/dL), 01/2018: TSH 1.735 (0.35-5.5), 12/2018: TSH 1.137 (0.35-5.5), 05/2019: TSH 2.293 (0.35-5.5), 01/2020: TSH 1.754 (0.35-5.5), free T4 1.2 (0.9-1.5), 01/2021: TSH 1.9 (0.27-4.2 uIU/mL), free T4 1.2 (0.9-1.7), 12/2021: TSH 3.41 (0.27-4.2 uIU/mL), free T4 1.1 (0.9-1.7), Renal Function Testin08/2013: creatinine 0.7, 12/2015: creatinine 0.69 mg/dL, eGFR >60,), 05/2018: Creatinine 0.72, 01/2019: Creatinine 0.86, 07/2019: Creatinine 0.73, 07/2020: Creatinine 0.65, 10/2020: Creatinine 0.64, 01/2021: Creatinine 0.81, 03/2021: Creatinine 0.73, 12/2021: Creatinine 0.64, 12/2022: Creatinine 0.78, 03/2023: Creatinine 0.83 Urine for Microalbumin:10/2013: Microalbumin:Creatinine ratio ok,12/2015: microalbumin : creatinine ratio ok, 08/2017: Microalbumin:Creatinine Ratio ok, 10/2018: Microalbumin:Creatinine Ratio 535, 01/03/2020: Microalbumin:Creatinine Ratio 650, 01/2021: Microalbumin:Creatinine Ratio 361. Improved but above goal. Jay states he has used lisinopril in the past but this increased his potassium too muchand it was discontinued. He will inquire further with his CF providers about losartan. I advised him to make an appointment with nephrology as we had previously discussed., 03/19/2021: Microalbumin:Creatinine Ratio 1220, 08/2021: still hasn't made appointment with kidney specialist, stressed the impo rtance of this to prevent further kidney damage., 10/2022: prot/creat ratio in [facility], making appointment with nephrology Lipid Profile:10/2013: TC 111, HDL 42, LDL 56, TG 56, 12/2015: TC 122, HDL 52, LDL 60, TG 49, 10/2018: TC 160, HDL 72, LDL 71, TG 83, 01/03/2020: TC 253 HDL 133 LDL 112 TG 38, 01/2021: TC 179 HDL 115 LDL54 TG 51, 03/2021: TC 233 HDL 143 LDL 84 TG 32 Liver Profile:08/2013: AST 93, ALT 65, Alkaline Phosphatase 811, 12/2015: AST 110 (9-37 U/L), ALT 164 (12-78 U/L), alkaline phosphatase 807 (46-116 U/L), Bilirubin, total 1.3 (0.2-1.0, mg/dL, 05/2018: results in care everywhere, 12/2019: results in care everywhere, 01/2020: labs in [facility], 07/2020; Alkaline Phosphatase 725 (45-117), ALT 77 (16-61), AST 163 (15-37), 12/2020: results in care everywhere., 03/2021: results In care everywhere, 12/2021: Alkaline Phosphatase 918 (38-113), bone percent 13.9%, liver percent 86.1 , 12/2022: liver function monitored by CF providers, 03/2023: in [facility] Dilated Eye Exam: Patient educated to have ophthalmology visits at least once a year. 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 08/2013: New patient visit for Cystic Fibrosis related Diabetes Previous diabetes related labs from [facility] and [facility]-everywhere systems reviewed prior to today's office visit. Any changes made at our last diabetes management visit were abstracted accordingly (if applicable). Today's Office Visit: Nephrology: cancelled appointment in 01/2023, is rescheduling. Reviewed the importance of this. Liver: monitored by CF provider(s). Lipids: advised to discuss with CF providers, may not be able to treat with high liver enzymes. self monitoring blood glucose data : see dexcom report. Average 14 day SG 195 49% TIR 1 % low range . Consistent post meal elevations, then improves overnight. Is very insulin sensitive, see below. Hasn't been using sliding scale. Diet: Very high in carbs per patient due to CF diet to gain weight per patient Exercise: working History of hypoglycemia unawareness,-using dexcom now. Likes the g7 Insulin pump: not interested at this time. Insulin: Carb ratio I:C ratio: 1:25, typically using 2-4 units with meals Sliding Scale parameters: Novolog hasn't been using Basal Insulin: (dosed in units) Bedtime dose: Levemir or basaglar 8 Typical Day: varies Always check blood sugar prior to driving. Carry glucose tablets when travelling. I reviewed and updated the below Review of Systems for today's office visit. Review of Systems Constitutional: Negative for weight loss. HENT: Negative for ear pain. Eyes: Negative for pain. Respiratory: Negative for shortness of breath. Cardiovascular: Negative for chest pain. Gastrointestinal: Negative for abdominal pain, blood in stool and melena. Genitourinary: Negative for hematuria. Musculoskeletal: Negative for falls. Neurological: Negative for loss of consciousness. 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) Transfusion history Type 1 diabetes mellitus with hyperglycemia (HCC) PAST SURGICAL HISTORY Procedure Laterality Date PAST SURGICAL HISTORY OF splenal renal shunt to treat portal hypertension PICC LINE INSERT/CONSULT 03/08/2023 FAMILY HISTORY Problem Relation Age of Onset Hypertension Mother Breast Cancer Other other (hypercholesterolemia) Other other (heart disease in female family member before age 65) Other Social History Tobacco Use Smoking status: Never Smokeless tobacco: Never Vaping Use Vaping Use: Never used Substance Use Topics Alcohol use: No Drug use: No Current Meds fluticasone (FLONASE) 50 mcg/actuation nasal spray Use 1-2 Sprays in each nostril once daily. fluticasone (FLOVENT) 220 mcg/actuation inhaler Inhale 1 Puff as instructed twice daily. Blood-Glucose Meter,Continuous (DEXCOM G7 CODER OPERATOR) [facility] [place] For monitoring sugars Blood-Glucose Sensor (DEXCOM G7 SENSOR) jean-paul One sensor every 10 days insulin lispro (HUMALOG KWIKPEN INSULIN) 100 unit/mL Dose varies units with meals and sliding scale, using about 30 total units a day Insulin Calvin, Disposable, (BD ULTRA-FINE YARON PEN NEEDLE) 32 gauge x 5/32 5x/day glucagon (BAQSIMI) 3 mg/actuation nasal spray Use 1 Calvin in the nose as needed. May repeat after 15 minutes using a new device if there is no response for severe low blood sugar event insulin glargine (BASAGLAR KWIKPEN U-100 INSULIN) 100 unit/mL (3 mL) Inject 8 units subcutaneously at bedtime aztreonam lysine (CAYSTON) 75 mg/mL nebulizer solution Inhale 1 mL as instructed three times daily.28 days on 28 days off Send altera nebulizer with each shipment Nebulizers 1 Each three times daily. dornase christi (PULMOZYME) 1 mg/mL nebulizer solution Inhale 2.5 mL as instructed once daily. cetirizine (ZYRTEC) 5 mg tablet Take 10 mg by mouth once daily. carvedilol (COREG) 6.25 mg tablet Take 1 tablet by mouth twice daily with meals. oafsxwlikaw-oizhbwopjg-hcjyloogi (TRIKAFTA) 100-50-75 mg(d) /150 mg (n) tablet Take 2 tablets by mouth every 48 hours. Take 2 orange tablets on even number days. Then take 1 tablet on Odd number days. Discard blue tablets. DO NOT crush, chew, or open. montelukast (SINGULAIR) 10 mg tablet Take 1 tablet by mouth daily at bedtime. citalopram hydrobromide (CELEXA) 20 mg tablet Take 1 tablet by mouth once daily. ursodiol (ACTIGALL) 300 mg capsule Take 300 mg by mouth twice daily. Nebulizers 1 Each three times daily. albuterol HFA (PROAIR HFA) 90 mcg/actuation inhaler Inhale 2 Puffs as instructed every 4 hours as needed for wheezing/shortness of breath. VITAMIN D2 1,250 mcg (50,000 unit) capsule Take 1 capsule by mouth two times a week. fluticasone-salmeterol (ADVAIR) 500-50 mcg/dose dsdv Inhale 1 Puff as instructed twice daily. CREON 36,000-114,000- 180,000 unit capsule Take 3 capsules by mouth. With every meal Objective BP 148/78 Ht 157.5 cm (5' 2 ) Wt 42.1 kg (92 lb 12.8 oz) BMI 16.97 kg/m Physical Exam Constitutional: General: He is not in acute distress. Appearance: He is not toxic-appearing. HENT: Head: Normocephalic and atraumatic. Eyes: General: No scleral icterus. Conjunctiva/sclera: Conjunctivae normal. Cardiovascular: Rate and Rhythm: Normal rate and regular rhythm. Pulmonary: Effort: Pulmonary effort is normal. No respiratory distress. Breath sounds: Normal breath sounds. No wheezing or rales. Skin: General: Skin is warm. Neurological: Mental Status: He is alert. Psychiatric: Mood and Affect: Mood and affect normal. Mood is not anxious. Judgment: Judgment normal. ASSESSMENT/PLAN: 1. Type 1 diabetes mellitus with hyperglycemia (HCC) - ICD9: 250.01, ICD10: E10.65 - TSH BLD - GLUCOSE MONITOR, 72 HOUR, PHYS INTERP Your new insulin regimen: Long acting insulin: Insulin used for this is called: Basaglar Bedtime dose 8 units Rapid acting /mealtime insulin: Insulin used for this is called: Humalog or Novolog insulin unit:grams of carb ratio Meal time dosin:25 Your sliding scale, for additional units of the rapid acting insulin: Insulin used for this is called: Humalog or Novolog Take this at meals, in addition to the above doses. If glucose reading is: 150-175 Take an additional 0 Units. 176-200 Take an additional 0 Units. 201-225 Take an additional 1 Units. 226-250 Take an additional 1 Units. 251-275 Take an additional 1 Units. 276-300 Take an additional 1 Units. 301-325 Take an additional 2 Units. 326-350 Take an additional 2 Units. 351-375 Take an additional 2 Units. 376-400 Take an additional 2 Units. Over 400 Take an additional 3 Units. Plan of Care: 1. Recent HbA1C 7.7%. Mr. Barber has severe insulin sensitivity. Now requiring much less insulin than previous years. We discussed insulin pump technology in depth however patient is not interested at this time. I reviewed the benefits of starting a programmed prandial insulin with half unit dosing, patient will look into insurance coverage. 2. For now, will restart sliding scale coverage (hasn't been using). Patient feels comfortable withthe above scale for now. Notify me in between visits if glycemia is trending above/below goals. 3. Total time for today's office visit was greater than 30 minutes. Greater than 50% of the time was spent in counseling and/or coordination of care. 4. Self monitoring blood glucose log sheet(s) were given to the patient. Instructed to fill out sheets and bring log to next visit. 5. Answered all questions. 6. Patient verbalized understanding of all the above instructions. 7. Discussed therapeutic lifestyle changes. Stephie Ramirez APRN.ARIAS [facility] History of Present illness Narrative* Stephie Ramirez APRN.ARIAS - 04/07/2023 1:16 PM EDT Subjective Important Lab History: HBA1C:10/2013: 10.8%, 12/2013: 7.4%, 03/2014: 9.6%, 03/2014: 8.1%, 05/2014: 6.7%, 05/2015: 6.9%, 08/2015: 8.4%, 12/2015: HbA1c 8.3%, 03/2016: 8.9%, 05/2016: 7.0%, 01/2018: 9.6%, 05/2018: 10.3%, 08/2018: 8.2%, 10/2018: 7.9%, 01/2019: 8.1%, 03/2019: 6.6%, 07/2019: 6.5%, 12/2019: 6.9%, 07/2020: 6.6%, 08/2020: 6.4%, 01/2021: HbA1C 8.3%, 03/2021: 8.3%, 05/2021: 7.4%, 08/2021: 7.4%, 12/2021: 7.5%, 07/2022: 8.6%, 10/2022: 8.4%, 03/2023: 7.7% Thyroid Function Testin10/2013: TSH 2.29 (0.358-3.740), free T4 1.02 (0.76- 1.46), 12/2015: TSH 1.970 (0.358-3.740 uIU/mL), free T4 1.15 (0.76-1.46 ng/dL), 01/2018: TSH 1.735 (0.35-5.5), 12/2018: TSH 1.137 (0.35-5.5), 05/2019: TSH 2.293 (0.35-5.5), 01/2020: TSH 1.754 (0.35-5.5), free T4 1.2 (0.9-1.5), 01/2021: TSH 1.9 (0.27-4.2 uIU/mL), free T4 1.2 (0.9-1.7), 12/2021: TSH 3.41 (0.27-4.2 uIU/mL), free T4 1.1 (0.9-1.7), Renal Function Testin08/2013: creatinine 0.7, 12/2015: creatinine 0.69 mg/dL, eGFR >60,), 05/2018: Creatinine 0.72, 01/2019: Creatinine 0.86, 07/2019: Creatinine 0.73, 07/2020: Creatinine 0.65, 10/2020: Creatinine 0.64, 01/2021: Creatinine 0.81, 03/2021: Creatinine 0.73, 12/2021: Creatinine 0.64, 12/2022: Creatinine 0.78, 03/2023: Creatinine 0.83 Urine for Microalbumin:10/2013: Microalbumin:Creatinine ratio ok,12/2015: microalbumin : creatinine ratio ok, 08/2017: Microalbumin:Creatinine Ratio ok, 10/2018: Microalbumin:Creatinine Ratio 535, 01/03/2020: Microalbumin:Creatinine Ratio 650, 01/2021: Microalbumin:Creatinine Ratio 361. Improved but above goal. Jay states he has used lisinopril in the past but this increased his potassium too muchand it was discontinued. He will inquire further with his CF providers about losartan. I advised him to make an appointment with nephrology as we had previously discussed., 03/19/2021: Microalbumin:Creatinine Ratio 1220, 08/2021: still hasn't made appointment with kidney specialist, stressed the impo rtance of this to prevent further kidney damage., 10/2022: prot/creat ratio in [facility], making appointment with nephrology Lipid Profile:10/2013: TC 111, HDL 42, LDL 56, TG 56, 12/2015: TC 122, HDL 52, LDL 60, TG 49, 10/2018: TC 160, HDL 72, LDL 71, TG 83, 01/03/2020: TC 253 HDL 133 LDL 112 TG 38, 01/2021: TC 179 HDL 115 LDL54 TG 51, 03/2021: TC 233 HDL 143 LDL 84 TG 32 Liver Profile:08/2013: AST 93, ALT 65, Alkaline Phosphatase 811, 12/2015: AST 110 (9-37 U/L), ALT 164 (12-78 U/L), alkaline phosphatase 807 (46-116 U/L), Bilirubin, total 1.3 (0.2-1.0, mg/dL, 05/2018: results in care everywhere, 12/2019: results in care everywhere, 01/2020: labs in [facility], 07/2020; Alkaline Phosphatase 725 (45-117), ALT 77 (16-61), AST 163 (15-37), 12/2020: results in care everywhere., 03/2021: results In care everywhere, 12/2021: Alkaline Phosphatase 918 (38-113), bone percent 13.9%, liver percent 86.1 , 12/2022: liver function monitored by CF providers, 03/2023: in [facility] Dilated Eye Exam: Patient educated to have ophthalmology visits at least once a year. 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 08/2013: New patient visit for Cystic Fibrosis related Diabetes [facility] prior to today's office visit. Any changes made at our last diabetes management visit were abstracted accordingly (if applicable). Today's Office Visit: Note: last Follow up was 12/2021, reviewed importance of routine, generally every 3 month Follow ups Nephrology: has appointment upcoming, last appointment was in the summer per patient and was virtual Liver: monitored by CF provider(s). Lipids: advised to discuss with CF providers, may not be able to treat with high liver enzymes. self monitoring blood glucose data : see dexcom report. Average 14 day SG 218 61% TIR 2 % low range however target ranges in the device were not 70-180. It was in as 95-245, patient will correct this Dexcom: through [facility] Diet: Very high in carbs per patient due to CF diet to gain weight, especially in evenings. Often eating 90 grams of carbs with a meal now which is less than other visits. States with programmed prandial insulin has been spotty taking it, missing lunch dose especially Exercise: working History of hypoglycemia unawareness,-using dexcom now. Insulin: Carb ratio Breakfast dose: Novolog 1:10 Lunch dose: Novolog 1:10 Supper dose: Novolog 1:10 --states was crashing on this ratio, Is more comfortable with a 1:20 or1:25 ratio, typically taking only 4-5 units with meals now Snack dose: Novolog 1:10 Sliding Scale parameters: Novolog 1:25/150-- admits hasn't been using corrections, was using a 1:50/150 Basal Insulin: (dosed in units) Bedtime dose: Levemir or basaglar 8 Typical Day: varies Always check blood sugar prior to driving. Carry glucose tablets when travelling. I reviewed and updated the below Review of Systems for today's office visit. 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) Transfusion history Type 1 diabetes mellitus with hyperglycemia (HCC) PAST SURGICAL HISTORY Procedure Laterality Date PAST SURGICAL HISTORY OF splenal renal shunt to treat portal hypertension PICC LINE INSERT/CONSULT 03/08/2023 FAMILY HISTORY Problem Relation Age of Onset Hypertension Mother Breast Cancer Other other (hypercholesterolemia) Other other (heart disease in female family member before age 65) Other Social History Tobacco Use Smoking status: Never Smokeless tobacco: Never Vaping Use Vaping Use: Never used Substance Use Topics Alcohol use: No Drug use: No Current Meds fluticasone (FLONASE) 50 mcg/actuation nasal spray Use 1-2 Sprays in each nostril once daily. fluticasone (FLOVENT) 220 mcg/actuation inhaler Inhale 1 Puff as instructed twice daily. Blood-Glucose Meter,Continuous (DEXCOM G7 CODER OPERATOR) [facility] [place] For monitoring sugars Blood-Glucose Sensor (DEXCOM G7 SENSOR) jean-paul One sensor every 10 days insulin lispro (HUMALOG KWIKPEN INSULIN) 100 unit/mL Dose varies units with meals and sliding scale, using about 30 total units a day Insulin Calvin, Disposable, (BD ULTRA-FINE YARON PEN NEEDLE) 32 gauge x 5/32 5x/day glucagon (BAQSIMI) 3 mg/actuation nasal spray Use 1 Calvin in the nose as needed. May repeat after 15 minutes using a new device if there is no response for severe low blood sugar event insulin glargine (BASAGLAR KWIKPEN U-100 INSULIN) 100 unit/mL (3 mL) Inject 8 units subcutaneously at bedtime aztreonam lysine (CAYSTON) 75 mg/mL nebulizer solution Inhale 1 mL as instructed three times daily.28 days on 28 days off Send altera nebulizer with each shipment Nebulizers 1 Each three times daily. dornase christi (PULMOZYME) 1 mg/mL nebulizer solution Inhale 2.5 mL as instructed once daily. cetirizine (ZYRTEC) 5 mg tablet Take 10 mg by mouth once daily. carvedilol (COREG) 6.25 mg tablet Take 1 tablet by mouth twice daily with meals. oahndbymbch-cmeqspvauy-etyqfjklh (TRIKAFTA) 100-50-75 mg(d) /150 mg (n) tablet Take 2 tablets by mouth every 48 hours. Take 2 orange tablets on even number days. Then take 1 tablet on Odd number days. Discard blue tablets. DO NOT crush, chew, or open. montelukast (SINGULAIR) 10 mg tablet Take 1 tablet by mouth daily at bedtime. citalopram hydrobromide (CELEXA) 20 mg tablet Take 1 tablet by mouth once daily. ursodiol (ACTIGALL) 300 mg capsule Take 300 mg by mouth twice daily. Nebulizers 1 Each three times daily. albuterol HFA (PROAIR HFA) 90 mcg/actuation inhaler Inhale 2 Puffs as instructed every 4 hours as needed for wheezing/shortness of breath. VITAMIN D2 1,250 mcg (50,000 unit) capsule Take 1 capsule by mouth two times a week. fluticasone-salmeterol (ADVAIR) 500-50 mcg/dose dsdv Inhale 1 Puff as instructed twice daily. CREON 36,000-114,000- 180,000 unit capsule Take 3 capsules by mouth. With every meal Objective There were no vitals taken for this visit. Physical Exam documented in this [facility] Nurse Note* Sissy Calhoun RN - 04/01/2023 3:07 PM EDT PICC line removed. Flushed with 10ml NS prior 41cm intact. Pt states no complaints at this time. documented in this [facility]04-28-[facility] Nurse Note* Peewee Vela RN - 03/28/2023 4:31 PM EDT Stop copat, picc line removal ordered by pulm service. Orders relayed to [facility]. Peewee Vela RN documented in this [facility]04-26-[facility] History of Present illness Narrative* She Pete DO - 03/26/2023 7:57 AM EDT Images from the original note were not included. PULMONARY MEDICINE CYSTIC FIBROSIS FOLLOW UP Patient Name: Jay Barber PRIMARY CARE PHYSICIAN: No primary care provider on file. Portions of this note were taken from the note dated 03/05/[address] Kilgore ASSESSMENT AND PLAN: Jay Barber is a 27 year old male, here for follow-up of Cystic Fibrosis 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, Trichosporonosis, Aspergillus ---Pancreatic insufficiency - on enzymes with Creon ---CFRD - follows with endocrinology ---CF Liver disease - complicated by portal hypertension, esophageal varices ---Chronic sinusitis ---Anxiety/Depression A CF Pulmonary Exacerbation is PRESENT - MODERATE We discussed the following today: - spirometry stable today - worsening sinus congestion/post nasal drip - RVP - fatigue improving - back on trikafta - 2 oranges alternating with 1 orange pill - NO blue pills - continue IV abx - Vanc (750mg BID)/Meropenem (1.5g every 8 hrs)- will call home health and ID to extend for another week - tentative end date of 03/28, may need to extend pending on how he feels next week --> [facility] - [phone] - left upper extremity PICC intact, skin appears normal - does not have IVFs at night but depending on labs and how he is feeling, can add if needed - pending labs - closely following LFT and renal function - vanc level erroneous, drawn after dose - continue airway clearance and inhaled cayston - to see RT and SW and RD today RTC: next week with Dr. Kilgore and spirometry 1. CYSTIC FIBROSIS PULMONARY DISEASE AND BRONCHIECTASIS Symptoms slowly improving FEV1% predicted today: 0.80L (23%) Complicated by chronic respiratory tract infection with PsA, Burkholderia vietnamiensis (sent to [facility] in 2019), MRSA Chronic maintenance regimen: CFTR modulators: Trikafta - was on adjusted dosing due to Cirrhosis - reports taking 2 orange pillson even days of the month and 1 orange pill on odd days of the month, No blue pills Pulmozyme: once daily Hypertonic saline: has at home but not currently using Chronic Azithromycin (anti-inflammatory): No (on hold due to prior NTM) Inhaled Abx: Cayston Ibuprofen: No Nebulized short-acting bronchodilator: albuterol as needed Nebulized other: PEP device: has acapella VEST: not currently using ICS: Advair 500/50mg 2 puffs BID Oral prednisone: as needed, not currently on Pulm rehab: not currently using Supplemental oxygen use: no Exercise and minutes per week: brisk walking/ lifting, 2 hrs per week Recommended ORDER OF AIRWAY CLEARANCE: Albuterol, Hypertonic, VEST (with hypertonic), pulmozyme, Inhaled antibiotics, Inhaled corticosteroids ADVANCED LUNG DISEASE (criteria: FEV1 < 40) and CHRONIC HYPOXEMIC RESPIRATORY FAILURE ---Supplemental oxygen: no ---BIPAP: no ---Pulmonary rehab: no ---ECHO: will need to repeat ---Weight: BMI of 15.88 (03/05/2023) ---Discussed lung transplantation: yes, 12/04/2022 - not currently interested. ---Referred for lung transplantation: not at this time per patient preference CHRONIC RESPIRATORY TRACT PSEUDOMONAS AND BURKHOLDERIA ([place]iensis) ---Mucoid phenotype ---Inhaled antibiotic: previously used cayston montly alternating with MUKESH podhaler - not currently doing, but started Cayston in December 2022. Does have the altera device ---Not on chronic azithromycin due to NTM ---Oral antibiotic that patient responds to: Cipro and Bactrim ---IV abx that patient responds to: IV TOBRAMYCIN, meropenem, vancomycin CYSTIC FIBROSIS PANCREATIC INSUFFICIENCY ---No generic enzymes, ever. ---Creon 36,000, 3-4 BEFORE meals AND 2-3 BEFORE snacks ---Fat soluble supplemental vitamins: Vitamin K 40 mcg daily ---CF Vitamins: MVI 2 daily ---Vitamin D2 50,000 weekly Vitamin D 25 Hydroxy (ng/mL) Date Value 07/27/2022 16.0 CYSTIC FIBROSIS LIVER DISEASE --- cirrhosis complicated by esophageal varices, portal hypertension --- Actigall restarted during last hospitalization - --- last RUQ US in 07/27/2022 - cirrhotic liver morphology. No focal hepatic lesions, fatty replacement of the pancreas compatible with underlying cystic fibrosis, mild splenomegaly --- last EGD - 07/30/2022 - small (<5mm) varices were found in the lower third of the esophagus. The entire examined stomach was normal. The examined duodenum was normal. --- last saw hepatology on 07/30/2022 while inpatient - requested hepatology outpatient follow-up --- on mephyton 5mg MWF CHRONIC PANSINUSITIS Sinuses can be a reservoir of bacterial infection and contribute to recurrent lower respiratory tract infections, especially in patients infected with Pseudomonas Symptoms are worse Nasal polyps - unknown? ---Antihistamine: zyrtec ---Nasal steroid: flonase ---Montelukast: added but discussed possible changes with mood ---If not improving with restart sinus medications - will obtain CT sinus and referral to ENT - would like to hold off on this for now given most likely related to change in weather ---Referral to ENT for surgical eval. Appt [phone]. Severe protein calorie malnutrition - continue ensures - to see Fernando today Prior Invasive Pulmonary Aspergillus infection/Trichosporonosis - treated with voriconazole by ID cosmetic consultant Dr. Burke France in 2020 for 1 year Depression/Anxiety ---continues on celexa 20 mg PO daily - refilled 11/20/2022 and restarted ---meet with social work today HTN ---amlodipine 10 mg PO daily (had hyperkalemia with SEVERINO-I) Proteinuria --- previously seen by Dr. Ahuja in nephrology CYSTIC FIBROSIS RELATED DIABETES ---The standard medical therapy for CFRD is subcutaneous insulin ---Patient currently on insulin therapy ---Self monitored blood glucose 3 times per day ---Patient has a CGM: NO ---Most recent hgA1c noted. ---Had ophthalmology retinal exam: needs to be done ---Urine albumin/creatinine ratio done: needs to be done ---Following with Dr. Francis Ramirez at [facility], last seen 12/20/2022 Hemoglobin A1C (%) Date Value 03/08/2023 7.7 11/05/2022 8.4 2022 8.6 02/12/2021 8.8 12/08/2015 8.3 Hemoglobin A1c (%) Date Value 05/22/2021 7.4 09/11/2020 6.4 12/30/2019 6.9 Hemoglobin A1C (POCT) (%) Date Value 12/24/2021 7.5 09/10/2021 7.4 05/22/2021 7.4 09/11/2020 6.4 HGBA1C (%) Date Value 07/30/2019 6.5 04/30/2019 6.6 01/25/2019 8.1 09/10/2018 8.2 05/29/2018 10.3 06/25/2016 7.0 ANNUAL SCREENING: Annual labs: will need OGTT: CFRD EYE EXAM TO CHECK FOR CATARACTS: WILL NEED DEXA: NEEDS LIVER US/Fibroscan: NEEDS for 2022 (last done 07/27/22) Colonoscopy: Start screening at age 35-40 years in CF due to increased risk of GI carcinoma: not ofage Immunization History Administered Date(s) Administered COVID-19 vaccine, age 12+ yr, bivalent (PFIZER-BIONTAlluring Logic) 12/04/2022 Haemophilus influenzae b (HbOC) vaccine, 4-dose series (HIBTITER) 1993 01/11/1994 05/20/1994 02/13/1995 Haemophilus influenzae b (Hib PRP-T) vaccine, 4-dose series (ACTHIB, HIBERIX) 07/16/1995 diphtheria tetanus pertussis (DTP) vaccine 1993 01/11/1994 05/20/1994 02/13/1995 07/16/1995 07/18/1999 hepatitis B (HepB) vaccine, 3-dose series, age 0 yr - 19 yr (ENGERIX B-PEDS, RECOMBIVAX HB-PEDS) 1993 1993 05/20/1994 influenza (IIV3) vaccine, trivalent (AFLURIA, FLULAVAL, FLUVIRIN, FLUZONE) 10/23/2011 09/13/2013 11/05/2018 influenza (IIV4) vaccine, age 6 mo - 64 yr, quadrivalent (AFLURIA, FLULAVAL, FLUZONE) 12/04/2022 influenza (IIV4) vaccine, age 6 mo - 64 yr, quadrivalent, PF (AFLURIA, FLUARIX, FLULAVAL, FLUZONE) 09/02/2016 10/11/2019 influenza (IIV4) vaccine, quadrivalent (AFLURIA, FLULAVAL, FLUZONE) 11/05/2018 influenza vaccine, whole virus 10/03/2010 measles mumps rubella (MMR) vaccine (M-M-R II, PRIORIX) 02/13/1995 06/13/1999 meningococcal (MenACWY-D) vaccine, quadrivalent (MENACTRA) 05/27/2012 meningococcal (MenACYW) vaccine, quadrivalent, unspecified formulation 05/27/2012 novel influenza (S8Y5-39) vaccine, PF 10/19/2009 pneumococcal (PCV13) vaccine, 13 valent (PREVNAR 13) 05/26/2019 pneumococcal (PCV7) vaccine, 7 valent (PREVNAR 7) 01/08/2006 pneumococcal (PPV23) vaccine, 23 valent (PNEUMOVAX 23) 10/23/2011 07/28/2019 poliovirus (IPV) vaccine, inactivated (IPOL) 1993 01/11/1994 05/20/1994 02/13/1995 tetanus diphtheria pertussis (Tdap) vaccine, age 7+ yr (ADACEL, BOOSTRIX) 05/29/2012 CHIEF COMPLAINT: Cystic Fibrosis HISTORY OF PRESENT ILLNESS: Jay Barber is a 27 year old male, here for follow-up of Cystic Fibrosis Courses of oral abx since last visit:0 Courses of IV abx since last visit:1 Prednisone use since last visit: 0 ED visits since last visit: 0 Hospitalizations since last visit: 1 INTERVAL HISTORY Since last seen in clinic - was admitted to the hospital for IV abx - started on Linezolid and Meropenem 1.5mg. Did not tolerate linezolid due to abdominal pain and rash, started on Vanc. Sent home with home IV abx on Vanc twice daily and meropenem 1.5mg every 8 hrs. He is feeling better, fatigue is better but worsening sinus congestion, post nasal drip and rhinorrhea after getting home. Not having any issues with home Ivs, has all meds that he needs. No nausea or diarrhea, appetite is better, weight stable. PICC line - no issues, clean, dry and intact - left upper extremity 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) Liver disease care home (current) use of insulin (HCC) Transfusion history Type 1 diabetes mellitus with hyperglycemia (HCC) PAST SURGICAL HISTORY Procedure Laterality Date PAST SURGICAL HISTORY OF splenal renal shunt to treat portal hypertension PICC LINE INSERT/CONSULT 03/08/2023 FAMILY HISTORY Problem Relation Age of Onset Hypertension Mother Breast Cancer Other other (hypercholesterolemia) Other other (heart disease in female family member before age 65) Other Social History Tobacco Use Smoking status: Never Smokeless tobacco: Never Vaping Use Vaping Use: Never used Substance Use Topics Alcohol use: No Drug use: No ALLERGIES: ALLERGIES Allergen Reactions Vancomycin Itching, Rash Gets Red Man syndrome and pt if not premedicated with benadryl prior to Vancomycin infusions. Cefoxitin Rash, Other: See Comments Severe abdominal pain, diarrhea, rash Severe Abdominal Pains CURRENT OUTPATIENT MEDICATIONS: Blood-Glucose Meter,Continuous (DEXCOM G7 CODER OPERATOR) [facility] [place] For monitoring sugars insulin lispro (HUMALOG KWIKPEN INSULIN) 100 unit/mL Dose varies units with meals and sliding scale, using about 30 total units a day Insulin Calvin, Disposable, (BD ULTRA-FINE YARON PEN NEEDLE) 32 gauge x 5/32 5x/day insulin glargine (BASAGLAR KWIKPEN U-100 INSULIN) 100 unit/mL (3 mL) Inject 8 units subcutaneously at bedtime aztreonam lysine (CAYSTON) 75 mg/mL nebulizer solution Inhale 1 mL as instructed three times daily.28 days on 28 days off Send altera nebulizer with each shipment dornase christi (PULMOZYME) 1 mg/mL nebulizer solution Inhale 2.5 mL as instructed once daily. cetirizine (ZYRTEC) 5 mg tablet Take 10 mg by mouth once daily. nykimstbwmv-xntkihskza-fxfbcoxtj (TRIKAFTA) 100-50-75 mg(d) /150 mg (n) tablet Take 2 tablets by mouth every 48 hours. Take 2 orange tablets on even number days. Then take 1 tablet on Odd number days. Discard blue tablets. DO NOT crush, chew, or open. montelukast (SINGULAIR) 10 mg tablet Take 1 tablet by mouth daily at bedtime. citalopram hydrobromide (CELEXA) 20 mg tablet Take 1 tablet by mouth once daily. ursodiol (ACTIGALL) 300 mg capsule Take 300 mg by mouth twice daily. Nebulizers 1 Each three times daily. albuterol HFA (PROAIR HFA) 90 mcg/actuation inhaler Inhale 2 Puffs as instructed every 4 hours as needed for wheezing/shortness of breath. VITAMIN D2 1,250 mcg (50,000 unit) capsule Take 1 capsule by mouth two times a week. fluticasone-salmeterol (ADVAIR) 500-50 mcg/dose dsdv Inhale 1 Puff as instructed twice daily. CREON 36,000-114,000- 180,000 unit capsule Take 3 capsules by mouth. With every meal fluticasone (FLONASE) 50 mcg/actuation nasal spray Use 1-2 Sprays in each nostril once daily. fluticasone (FLOVENT) 220 mcg/actuation inhaler Inhale 1 Puff as instructed twice daily. Blood-Glucose Sensor (DEXCOM G7 SENSOR) jean-paul One sensor every 10 days glucagon (BAQSIMI) 3 mg/actuation nasal spray Use 1 Calvin in the nose as needed. May repeat after 15 minutes using a new device if there is no response for severe low blood sugar event Nebulizers 1 Each three times daily. carvedilol (COREG) 6.25 mg tablet Take 1 tablet by mouth twice daily with meals. REVIEW OF SYSTEMS PAIN ASSESSMENT: Negative for pain, history of chronic pain, or current treatment for a chronic pain condition. GENERAL: No weight loss, malaise or fevers HEENT: +rhinorrhea, post nasal drip and sinus congestion NECK: Negative for lumps, goiter, pain and significant neck swelling RESPIRATORY: +cough, +sputum production but improved CARDIOVASCULAR: Negative for chest pain, leg swelling, hypertension, CHF or palpitations GI: No nausea, vomiting, or diarrhea : No history of dysuria, frequency or incontinence MUSCULOSKELETAL: Negative for joint pain or swelling, back pain or muscle pain SKIN: Negative for lesions, rash, and itching PSYCH: Negative for sleep disturbance, mood disorder and recent psychosocial stressors ENDOCRINE: Negative for cold or heat intolerance, polyuria, polydipsia and goiter NEURO: No history of headaches, syncope, paralysis, seizures or tremors PHYSICAL EXAMINATION: VITAL SIGNS: BP 140/80 Pulse 85 Temp (Src) 98 (Temporal) Resp 18 Ht 5' 2.012 (1.58m) Wt 90 lb 6.2 oz (41.0kg) SpO2 98% BMI 16.53 kg/(m^2). Last 5 Encounter Wt Readings: Date: Wt: 03/19/2023 40.8 kg (90 lb) 03/19/2023 41 kg (90 lb 6.2 oz) 03/06/2023 40.3 kg (88 lb 12.8 oz) 03/05/2023 39.4 kg (86 lb 13.8 oz) 02/26/2023 38.9 kg (85 lb 12.8 oz) GENERAL APPEARANCE: He Is well appearing, alert, in no acute distress, well-hydrated, INTEGUMENTARY: skin color, texture, turgor normal, no rashes or lesions; PICC in left upper arm. EYES: Anicteric sclera. Pupils are equally round and reactive to light. Extraocular movements are intact. ENT: nasal erthema; mild congestion of B turbinates; +cobblestoning. mild HEME/LYMPH: Supple neck, no adenopathy; thyroid symmetric, normal size, no bruits RESPIRATORY: Lungs clear to auscultation. No wheezing, rhonchi, rales, Percussion normal, good diaphragmatic excursion, Cough, CARDIOVASCULAR: No edema. RRR without murmur, gallop, or rubs. No ectopy GI: Normal abdominal exam, Abdomen soft, non-tender. Bowel sounds normal. No masses, organomegaly MUSCULOSKELETAL: 1+ clubbing B; No arthritis. No deformities or cyanosis. Gait normal. PSYCH:no signs of depression or anxiety Neuro: Non-focal. Sensation grossly intact. DATA: Diagnostic tests reviewed for today's visit were personally reviewed by me: Sputum culture results and Most recent labs and imaging results. Most recent EKG LAST LAB RESULTS: ---Reviewed in [facility] CBC with diff: WBC 6.65 03/24/2023 RBC 4.18 03/24/2023 Hemoglobin 12.9 03/24/2023 Hematocrit 38.6 03/24/2023 MCV 92.3 03/24/2023 MCH 30.9 03/24/2023 MCHC 33.4 03/24/2023 RDW-CV 12.7 03/24/2023 Platelet Count 244 03/24/2023 MPV 10.1 03/24/2023 Neutrophils % 56.6 03/24/2023 Lymph% 24.5 03/24/2023 [place]% 7.4 03/24/2023 Eosin% 16.6 11/26/2022 Baso% 1.1 03/24/2023 Abs Neut (Segs + Bands) 3.77 03/24/2023 Abs [place] 0.49 03/24/2023 Abs Eosin 0.66 03/24/2023 Abs Baso 0.07 03/24/2023 Glucose (mg/dL) Date Value 03/24/2023 249 12/08/2015 113 Potassium Date Value 03/24/2023 4.8 mmol/L 11/26/2022 4.4 Sodium Date Value 03/24/2023 134 mmol/L 12/08/2015 139 mEq/L Chloride Date Value 03/24/2023 100 mmol/L 12/08/2015 102 mEq/L CO2 Date Value 03/24/2023 26 mmol/L 12/08/2015 31 mEq/L Creatinine Date Value 03/24/2023 0.83 mg/dL 11/26/2022 1.16 MG/DL BUN (mg/dL) Date Value 03/24/2023 13 12/08/2015 16 Anion Gap Date Value 03/24/2023 8 mmol/L 12/08/2015 11 Calcium (mg/dL) Date Value 12/08/2015 9.3 Calcium, Total (mg/dL) Date Value 03/24/2023 8.9 Protein, Total (g/dL) Date Value 03/24/2023 8.6 12/08/2015 9.5 Albumin (g/dL) Date Value 03/24/2023 2.9 12/08/2015 3.4 Bilirubin, Total Date Value 03/24/2023 1.2 mg/dL 11/26/2022 0.80 Alkaline Phosphatase Date Value 03/24/2023 1,019 U/L 11/26/2022 1,147 AST Date Value 03/24/2023 124 U/L 11/26/2022 145 ALT Date Value 03/24/2023 56 U/L 11/26/2022 145 Vitamin D 25 Hydroxy (ng/mL) Date Value 03/08/2023 8.0 ] Hemoglobin A1C (%) Date Value 03/08/2023 7.7 11/05/2022 8.4 2022 8.6 02/12/2021 8.8 12/08/2015 8.3 Hemoglobin A1c (%) Date Value 05/22/2021 7.4 09/11/2020 6.4 12/30/2019 6.9 Hemoglobin A1C (POCT) (%) Date Value 12/24/2021 7.5 09/10/2021 7.4 05/22/2021 7.4 09/11/2020 6.4 HGBA1C (%) Date Value 07/30/2019 6.5 04/30/2019 6.6 01/25/2019 8.1 09/10/2018 8.2 05/29/2018 10.3 06/25/2016 7.0 SPIROMETRY: Reviewed in [facility] MICROBIOLOGY: Reviewed MICROBIOLOGY SNAPSHOT Written and verbal health teaching given to patient, patient verbalizes understanding and agrees with treatment plan. I spent a total of 50 minutes on the date of the service which included preparing to see the patient, [id number] patient care, completing clinical documentation, obtaining and/or reviewing separately obtained history, performing a medically appropriate examination, ordering medications, tests, or procedures, communicating with other HCPs (not separately reported), and care coordination (not separately reported). Electronically Signed: She Pete DO March 19, 2023 documented in this encounterOhio[facility]04-20-2023 Nurse Note* Lou Westbrook RN - 03/20/2023 2:53 PM EDT Order received from Dr Michel to extend COPAT until 03/28. Call placed to [facility] to update on extension. Verbal given to Sissy. documented in this encounterOhiohealth Mansfield Hospital04-20-2023 Miscellaneous Notes* Telephone Encounter - Anabel Michel MD - 03/20/2023 2:43 PM EDT I spoke with Mr. Barber today to assess his symptoms. He states that he has had a head cold for thepast few days with new headache and some congestion but the symptoms he had previously that were his CF exacerbation have improved, predominantly the fatigue. He is now at 85-90% of his baseline energy level. He also states he is nervous about finishing IV antibiotics due to concern of relapse in his symptoms. His CF installation superintendent, Dr. Pete, would like to extend his Copat to 03/28. I relayed that I thought this was reasonable. Since the CF team is following so closely, I told himwe could cancel the Friday appointment. Plan: I will extend his copat to 03/28. Anabel Michel MD Infectious Disease documented in this encounterOhiohealth Mansfield [facility]04-20-2023 Miscellaneous Notes* Telephone Encounter - Daniel Amando - 03/20/2023 1:40 PM EDT Received call from Demetrius with I looking for clarification. Would it be appropriate to send an order for pre medication IV Benadryl to take before Vancomycin? Okay to leave a message if appropriate [phone] documented in this encounterOhiohealth Mansfield Hospital04-20-2023 History of Present illness Narrative* Fernando Zhang, CHEYANNE - 03/20/2023 11:54 AM EDT Nutrition Therapy CF Annual Assessment Some elements copied from my note on 11/05/2022 have been updated and all reflect current decision making from today, 03/20/2023 Nutrition Diagnosis: Underweight, related to, increased energy needs, as evidenced by cystic fibrosis . RECOMMENDED MALNUTRITION DIAGNOSIS: SEVERE PROTEIN-CALORIE MALNUTRITION-- NUTRITION CARE PLAN Nutrition Intervention 03/20/2023: Modify type and amount of food at meals and snacks Recommend rechecking vitamin A and D after finishing IV abx If still low, consider supplementing individual vitamin A Continue with vitamin D once weekly, may need to increase to 2 Continue with MVW D3000 BID 3. Continue with enzyme regimen a. Do not exceed 11 capsules per day total 4. DEXA and fibroscan this year 5. Continue with Ensure Plus Nutrition Monitoring & Evaluation: Weight gain of 1-2 pounds per week and adherence to above recommendations Need for Follow up: PRN Patient presents for CF annual assessment. See below for details and above for recommendations Diet History: Not reviewed Pertinent Lab Work: Component Latest Ref Rng & Units 2022 07/26/2022 07/27/2022 Hemoglobin A1C 4.3 - 5.6 % 8.6 (H) Estimated Average Glucose mg/dL 200 Vitamin E-alpha 6.0 - 23.0 mg/L 6.4 Vitamin E-gamma 0.3 - 3.2 mg/L 0.6 PT Sec 9.7 - 13.0 sec 11.9 PT INR 0.9 - 1.3 1.1 CRP <0.9 mg/dL 1.7 (H) 21.0 (H) Vitamin A 0.30 - 1.20 mg/L 0.14 (L) Vitamin D 25 Hydroxy 31.0 - 80.0 ng/mL 14.7 (L) 16.0 (L) Vitamins/mineral intake: Vitamin D: 50,000 IU once weekly MV: MVW D3000 BID CFRD: Present, follows with endo at [facility] CGM: Dexcom G7 Insulin regimen: Basaglar 8 units HS and humalog with meals Oral diabetic agents: none DEXA: Needs Low bone density on [facility] DEXA in 2019 GI Symptoms: Reports no issues at this time Colonoscopy: n/a Abdominal US/Fibroscan: abdominal US 07/2022; needs fibroscan and should see hepatology (per MD patient not interested in seeing hepatology at this time) IMPRESSION: CIRRHOTIC LIVER MORPHOLOGY. NO FOCAL HEPATIC LESION. FATTY REPLACEMENT OF THE PANCREAS COMPATIBLE WITH UNDERLYING CYSTIC FIBROSIS. MILD SPLENOMEGALY. Pancreatic insufficiency: Present Enzymes Used: Creon 36,000 3 with meals (2600 units lipase/kg/meal, does not usually have snacks) Nutrition Support: None BMI status based on recommendations of >/= 22 for women and >/= 23 for men: 16.4, low for CF male. Reports he is at his UBW Estimated Nutrition Requirements 27 year old MALE Dosing Weight: 41 kg (actual body weight) Estimated Calorie Needs: 3077-3167 (40-50 kcal/kg) Estimated Protein Needs: 62-82 (1.5-2.0 g/kg IBW) Estimated Fluid Needs: 3275-9425 (1mL/kcal) Activity: Activities of Daily Living: Active 50% of the day. 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 Resting Metabolic Rate: 1254 Malnutrition Screening Significant unintentional weight loss? NUTRITION FOCUSED PHYSICAL EXAM: Subcutaneous Fat Loss Orbital Mild Triceps Moderate Mid-axillary at the iliac crest Moderate Muscle Loss Locations: Temporalis Mild Pectoralis Moderate Deltoids Severe Interosseous Moderate Latissimus dorsi, trapezius Severe Quadriceps Moderate Gastrocnemius Moderate Potential micronutrient deficiency revealed in: No deficiency identified Edema: No Ascites: No Assessment of Functional Status: Functional capacity is unrelated to nutrition status Eating less than 75% of usual intake for more than 2 weeks? Yes Potential Signs of Inflammation: hyperglycemia, hypoalbuminemia, and microbiologic cultures In the context of Chronic Illness or Injury based on: Subcutaneous Fat Loss: Moderate Loss Muscle Loss Moderate Loss Education Materials Provided: None this visit READINESS TO LEARN Cognitive ability: Alert and oriented Motivation to learn: Interested Family support: High - Very involved in pt care Instruction provided to: Patient and Mother Patient learns best by: Multiple Methods Factors affecting learning: None Physical limitations affecting learning: None Referred/Supervised by: Jennie/Mihir DAVIES Billing Type: Re-assess/15 min 3 units SIGNATURE: Fernando Zhang RD PATIENT NAME: Jay Barber DATE: 03/20/2023 TIME: 12:13 PM PAGER: [phone] documented in this encounterOhiohealth Mans[facility] Hospital04-19-2023 History of Present illness Narrative* Kaylen Daigle [facility] - 03/19/2023 3:50 PM EDT ANNUAL CYSTIC FIBROSIS RESPIRATORY THERAPY EDUCATION VISIT Patient identified by name and date of . The following topics were discussed as part of today's visit: THERAPY AND ORDER OF THERAPY 1. INHALED MEDICATIONS: Bronchodilator: Albuterol MDI 2 puffs 2 times / day , Duoneb vial 3/4 times/day Hypertonic Saline: none Pulmozyme: 1 time/day Antibiotic: Mukesh NA Podhaler NA Colistin NA Other CAYSTON 75MG/MLTID Inhaled Corticosteroid: Name: Flovent 220 mg BID and Advair 1 puffs BID times/day 2. AIRWAY CLEARANCE THERAPY: May do while receiving the nebulizer Vest: has one but not using PD&C: NA Flutter/Acapella: 2/3 times/day Other: 3. ORDER OF INHALED MEDICATIONS AND AIRWAY CLEARANCE (You should do this twice daily): * Bronchodilator * Hypertonic Saline * Flutter/Acapella or Vest Treatment (you can do hypertonic saline while wearing the Vest) * Pulmozyme * Inhaled Antibiotic * Inhaled Corticosteroid * Other 4. OTHER PULMONARY/RESPIRATORY MEDICATIONS: 5. EQUIPMENT: MAINTENANCE AND CLEANING: Patient reports the following cleaning regimen: Cleans equipment by boiling. Reviewed recommended equipment cleaning procedures. Heat method: Boil X 5 minutes Microwave X 5 minutes General Accountant 158 degrees X 30 minutes Electric steam sterilizer (baby bottle sterilizer) Cold method: Soak in 70% isopropyl alcohol X 5 minutes, rinse with sterile water Soak in 3% hydrogen peroxide X 30 minutes, rinse with sterile water Nebulizer Care at Home document Replacment supply schedule and provider: CPAP/BiPAP DME 6. 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 Recommendations include: 30 minutes, 3-5 X weekly and a goal of 150 minutes/week 7. EDUCATION/OTHER: ZephyRX: 8. SUMMARY: Pt starting using Duoneb Friday due to illness. Pt encouraged to get regular exercise 3-5 time per week. documented in this encounterOhiohealth [facility]04-17-2023 History of Present illness Narrative* She Pete, DO - 03/17/2023 9:55 AM EDT CF Pre-Clinic Checklist PRE-TRANSPLANT Last CF clinic visit date: 03/05/2023 Dr. 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, Trichosporonosis, Aspergillus ---Pancreatic insufficiency - on enzymes with Creon ---CFRD - follows with endocrinology ---CF Liver disease - complicated by portal hypertension, esophageal varices ---Chronic sinusitis ---Anxiety/Depression Exacerbations in the last 12 months: Dates of IV in hospital: 11/05/2022 - 11/11/2022 - CF exacerbation/influenza A 07/26/2022 - 08/21/2022 - CF exacerbation/hemoptysis Dates of IVs at home: 11/11/2022 - 11/17/2022 - stopped due to rising LFTs/Cr (Vanc and Meropenem) 03/07/2023 - current - Vanc/Meropenem FEV1%: 24% FEV1%trend: BMI: 16.24 BMI Trend: RD ANNUAL VISIT Needed: will need for 2022 RT ANNUAL VISIT Needed: will need for 2022 SW ANNUAL VISIT Needed: will need for 2022 SW Mental health screen: will need for 2022 ANNUAL Labs Needed: will need for 2022 - getting labs for home Ivs (last 03/15/23) Last OGTT/CFRD: CFRD - saw Dr. Ramirez on 12/20/22 Dexa: needs (last 2019 with -2.9) T/Z = > -1.0 - every 5 years T/Z = -1.0 to -2.0 - every 2-4 years T/Z = < -2.0 - every 1 year Colonoscopy (age > 35) not of age as of yet WNL-every 5 years Abnormal-every 3 or sooner Abdominal Ultra Sound: needs fibroscan this year (last abd US 07/27/2022) (Every 2 years if LFT's normal) Chronic Medications (List why If not on medication): CFTR modulators: Trikafta - was on adjusted dosing due to Cirrhosis - reports taking 2 orange pillson even days of the month and 1 orange pill on odd days of the month, No blue pills Pulmozyme: recently restarted Hypertonic saline: has at home but not currently using Chronic Azithromycin (anti-inflammatory): No (on hold due to prior NTM) Inhaled Abx: not currently using - but has received [place] and will restart Ibuprofen: No Referral to Endo: already in place - saw Dr. Ramirez 12/20/2022 Referral to Transplant: NEEDS EPIC/Phone Messages since last visit: Other issues: Plan for visit: - how are home Ivs going - needs to see entire team this year - needs annual labs - needs fibroscan - needs DEXA scan - needs hepatology follow-up - ready for transplant referral? documented in this encounterOhiohealth [facility]04-06-2023 Miscellaneous Notes* Telephone Encounter - PRABHA Arriaga - 03/06/2023 2:57 PM EDT I called Jay to discuss direct admit process. He did not answer. I left a voicemail asking him to give me a call back when he gets a chance. * Telephone Encounter - Radha Carvajal - 03/06/2023 12:35 PM EDT Patient called to follow up as Dr. Kilgore directed him to follow up with our office today if he hadnot heard anything regarding direct admit for tomorrow, 03/07/2023. Admin reviewed chart and confirmed that Dr. Kilgore had arranged for patient to do a direct admit tomorrow, 03/07/2023. Patient inquired about details such as time, location, bed, etc. Admin transferred to the data collection specialist who took ownership of his admission. 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 He is well cared for by his team including Dr. Kilgore, Yanci Hale and Ms. Schneider from the Adult CF team. Jay has expressed reservations about discussing transplant and did not want referral. I called him March 06, 2023 at 1300 to introduce myself, discuss how transplant could be something that truly helps him get back the life that his lifelong disease is taking from him. I told him that when he is ready, I want to meet with him virtually, in person, whichever way he prefers to permit him time to tell me why he has a mental block about transplant. I told him it is very normal to feel this way about something as big as transplant. I asked him if he ever met someone with a transplant who was like him now and then his/her life changed through transplant. I told him a few stories about my experience with CF lung transplant, referral, care and e ducation of transplant patients. I asked him to at least consider talking to me in the future following his current clean out scheduled this weekend at [facility]. I gave him my email address and work number so he could contact me when ready. He was amenable to this plan. He expressed his appreciation for the call and knowing that such resources were more easily accessible than he had thought. Alex Pinon MD March 06, 2023 1:22 PM documented in this encounterOhiohealth [facility]04-05-2023 History of Present illness Narrative* Jean Pierre Kilgore MD - 03/05/2023 4:40 PM EDT Images from the original note were not included. PULMONARY MEDICINE CYSTIC FIBROSIS FOLLOW UP March 05, 2023 Patient Name: Jay Barber PRIMARY CARE PHYSICIAN: No primary care provider on file. Portions of this note were taken from the notes dated 02/26/2023 Jay Barber is a 27 year old male seen for acute exacerbation of CF pulmonary disease with mild, resolved hemoptysis last week. He was started on PO Bactrim DS and Levaquin, instructed to continue ACT and inhaled therapies, and labs were unremarkable with an INR of 1.3, WBC of 4.62, and Hgb of 13.3; but a glucose of 355. He returns today without improvement - with ongoing increased cough, sputum productive of thicker and more copious sputum but without further hemoptysis, low grade fever to 100.2 F, fatigue and HERNÁNDEZ. He developed myalgias, and so stopped the PO antibiotics Friday. He is non-toxic in the office, withstable weight and FEV1. O2Sat of 97%. Of note, he developed moderate elevations in LFTs and bili, as well as creatinine after IV antibiotics in October 2022 - with the exception of his Alk phos, these have returned to baseline. 10 days before being seen last week, he had 2 episodes of hemoptysis, each ~30-60 mls. They stopped spontaneously and haven't recurred. ASSESSMENT AND PLAN: Jay Barber is a 27 year old male, here for acute Cystic Fibrosis pulmonary exacerbation with hemoptysis Genotype: 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, Trichosporonosis, Aspergillus ---Pancreatic insufficiency - on enzymes with Creon ---CFRD - follows with endocrinology ---CF Liver disease - complicated by portal hypertension, esophageal varices ---Chronic sinusitis ---Anxiety/Depression A CF Pulmonary Exacerbation is present, moderate. We discussed the following today: CF Pulmonary exacerbation Off PO antibiotics 2o non-specific myalgias Plan for admission in the next 48 hours PICC line IV antibiotics for MRSA, B Cepacia Will take into account lab issues (liver, kidneys) after IV course in October. We'll send your sputum today in for culture Probably DC on home IVs after a few days [facility] should contact you tomorrow. Call if not contacted by late morning. 1. CYSTIC FIBROSIS PULMONARY DISEASE AND BRONCHIECTASIS Acute pulmonary exacerbation, with failure outpatient oral therapy FEV1% predicted today: 24% (was 21% last week). Baseline is considered ~28% Complicated by chronic respiratory tract infection with PsA, Burkholderia vietnamiensis (sent to [facility] in 2019), MRSA Chronic maintenance regimen: CFTR modulators: (stopped during hospitalization October 2022, not yet restarted) Trikafta - was on adjusted dosing due to Cirrhosis - reports taking 2 orange pills on even days of the month and 1 orange pill on odd days of the month, No blue pills Pulmozyme: restarted Hypertonic saline: has at home but not currently using Chronic Azithromycin (anti-inflammatory): No (on hold due to prior NTM) Inhaled Abx: [place] Ibuprofen: No Nebulized short-acting bronchodilator: albuterol as needed Nebulized other: PEP device: has acamaggiellari VEST: not currently using ICS: Advair 500/50mg 2 puffs BID Oral prednisone: as needed, not currently on Pulm rehab: not currently using Supplemental oxygen use: no Exercise and minutes per week: brisk walking/ lifting, 2 hrs per week Recommended ORDER OF AIRWAY CLEARANCE: Albuterol, Hypertonic, VEST (with hypertonic), pulmozyme, Inhaled antibiotics, Inhaled corticosteroids ADVANCED LUNG DISEASE (criteria: FEV1 < 40) and CHRONIC HYPOXEMIC RESPIRATORY FAILURE ---Supplemental oxygen: no ---BIPAP: no ---Pulmonary rehab: no ---ECHO: will need to repeat ---Weight: BMI of 15.88 (03/05/2023) ---Discussed lung transplantation: yes, 12/04/2022 - not currently interested. ---Referred for lung transplantation: not at this time per patient preference CHRONIC RESPIRATORY TRACT PSEUDOMONAS AND BURKHOLDERIA ---Mucoid phenotype ---Inhaled antibiotic: previously used cayston montly alternating with MUKESH podhaler - not currently doing, but started Cayston in December 2022. Does have the altera device ---Not on chronic azithromycin due to NTM ---Oral antibiotic that patient responds to: Cipro and Bactrim ---IV abx that patient responds to: IV TOBRAMYCIN, meropenem, vancomycin CYSTIC FIBROSIS PANCREATIC INSUFFICIENCY ---No generic enzymes, ever. ---Creon 36,000, 3-4 BEFORE meals AND 2-3 BEFORE snacks ---Fat soluble supplemental vitamins: Vitamin K 40 mcg daily ---CF Vitamins: MVI 2 daily ---Vitamin D2 50,000 weekly Vitamin D 25 Hydroxy (ng/mL) Date Value 07/27/2022 16.0 CYSTIC FIBROSIS LIVER DISEASE --- cirrhosis complicated by esophageal varices, portal hypertension --- Actigall restarted during last hospitalization - --- last RUQ US in 07/27/2022 - cirrhotic liver morphology. No focal hepatic lesions, fatty replacement of the pancreas compatible with underlying cystic fibrosis, mild splenomegaly --- last EGD - 07/30/2022 - small (<5mm) varices were found in the lower third of the esophagus. The entire examined stomach was normal. The examined duodenum was normal. --- last saw hepatology on 07/30/2022 while inpatient - requested hepatology outpatient follow-up --- on mephyton 5mg MWF CHRONIC PANSINUSITIS Sinuses can be a reservoir of bacterial infection and contribute to recurrent lower respiratory tract infections, especially in patients infected with Pseudomonas Symptoms are worse Nasal polyps - unknown? ---Antihistamine: zyrtec ---Nasal steroid: flonase ---Montelukast: added but discussed possible changes with mood ---If not improving with restart sinus medications - will obtain CT sinus and referral to ENT - would like to hold off on this for now given most likely related to change in weather ---Referral to ENT for surgical eval. Appt [phone]. CYSTIC FIBROSIS RELATED DIABETES ---The standard medical therapy for CFRD is subcutaneous insulin (oral diabetic agents should not be used); ---Patient currently on insulin therapy. ---Self monitored blood glucose 3 times per day ---Most recent hgA1c noted. ---Following with Dr. Francis Ramirez at [facility], last seen 12/20/2022 Severe protein calorie malnutrition - continue ensures - will have fernando follow-up with him Prior Invasive Pulmonary Aspergillus infection/Trichosporonosis - treated with voriconazole by ID cosmetic consultant Dr. Burke France in 2019 for 1 year Depression/Anxiety ---continues on celexa 20 mg PO daily - refilled l101/21/2022 and restarted ---will see if SW is able to see him in the next week or so HTN ---amlodipine 10 mg PO daily (had hyperkalemia with SEVERINO-I) Proteinuria --- previously seen by Dr. Ahuja in nephrology ANNUAL SCREENING: Annual labs: completed 2021 OGTT: not needed due to CFRD DEXA: needs Colonoscopy: Start screening at age 35-40 years in CF due to increased risk of GI carcinoma: not ofage as of yet Prior exacerbation treatments per [facility] Procedures & IV/Oral Course: -12/15/95-12/23/95 Hospitalized d/t CF, Influ A, DM- IV ABX, BS monitoring -02/24/96-03/01/96 Hospitalized d/t CF exacerbation and DM- IV Cefuroxime -03/01/96 Home Treatment - CF exacerbation - IV Cefuroxime --- -06/15/97-06/21/97 Hospitalized - CF exac.-IV Tobra and Timentin -06/21/97 Home Treatment -CF exacerbation IV Tobra and Timentin --- -08/07/99-08/10/99 Hospitalized - BS out of control - Insulin started, IV Zosyn and Tobra -08/10/99 Home Treatment -CF exacerbation IV Zosyn and Tobra --- -03/19/00-03/22/00 Hospitalized - CF exacerbation - IV Zosyn and Tobra - 03/22/00 Home Treatment -CF exacerbation IV Zosyn and Tobra -04/14/00-04/17/00 Hospitalized - viral illness, fever - PFTs, labs, airosols, PD -08/10/00-08/20/00 Hospitalized - FUO - CT Chest and Gallium Scan (bronchiectasis RUL and LLL --- -02/18/01 OPS- Colonoscopy and biopsy, r/o fibrosing colonopathy --- -03/10/02-03/14/02 Hospitalized -CF exacerbation - IV Tobra and Meropenem -03/14/02-03/24/02 Home Treatment - CF exacerbationIV Tobra and Meropenem --- -06/15/03-06/16/03 Hospitalized - CF exacerbation, chronic bronchitis, D.M. - IV Tobra and Meropenen -06/16/03-06/29/03 Home Treatment -CF exacerbation IV Tobra and Meropenem --- -12/07/2003 Home Treatment - Zyvox x14 days -01/09/2004 Home Treatment - CF exacerbation IV Cefoxitin and po Biaxin treatment atypical mycobacteria -02/08/2004-02/22/2004 Hospitalized - CF exacerbation - IV course of Vancomycin, Tobramycin, and Meropenem x14 days total -09/25/2004 Home Treatment - Cipro x21 days -10/18/2004- 10/24/2004 Hospitalized - CF exacerbation - IV course of Meropenem and Tobramycin and Bactrim po x14 days total -11/21/2004 Home Treatment - Cipro and Duricef x14 days --- -12/26/2004 Home Treatment - Cipro and Duricef x14 days -02/11/2005 Home Treatment - Cipro x14 days -02/27/2005 Home Treatment - po Cipro x7 more days and Prednisone x5 days --- -08/05/2006 Home Treatment - po Bactrim x14 days -09/24/2006 Home Treatment - po Zyvox x14 days -10/11/2006 to 10/17/2006 Hospitalized - CF exacerbation - IV course of Tobramycin, IV Timentin, and IV Zyvox later changed to IV Vancomycin because of pancytopenia- completed three weeks at home -11/26/2006 Home Treatment - po Cipro and po Zyvox x21 days --- -02/10/2007 Home Treatment - po Cipro and po Bactrim x14 days -04/03/2007 to 04/08/2007 Hospitalized - CF exacerbation with first hemoptysis- IV course of Tobramycin, IV Ceftazidime and IV Zyvox continued at home until 04/17/2007- short of three weeks because of thrombocytopenia -04/22/[address] Trejo- low platelets and low white count most likely from cobination of hypersplenism, illness and antibiotics -05/04/[address] 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 --- -06/27/08 - 07/01/08 Hospitalized - CF exacerbation - IV course of Meropenem, Tobramycin and Linezolid. IVs continued at home for total 3 wks. -10/26/08 Home Treatment - PO Cipro and Bactrim DS x 21 days -11/21/08 - 11/28/08 Hospitalized -CF exacerbation - IV course of Timentin, Vancomycin and Tobramycin. IVs continued at home for total 3 wks --- -01/25/09 Home Treatment - PO Zyvox x 10 days -02/01/09 Home Treatment - PO Bactrim DS x 7 days due to rash possibly due to Zyvox (was on for 6 days) -08/23/2009 Hospital/Home CF exacerbation, IV Meropenem, Tobramycin, Vancomycin X 3 weeks --- -04/11/2010 Home treatment Zyvox po X 14 days -04/29/2010-05/02/2010 Hospital: GI bleed secondary to esophageal varices -05/24/2010 OPS: Upper endoscopy with banding of esophageal varices -06/26/2010 Hospital/Home IV -CF exacerbation - 2 weeks Meropenem, Tobramycin, Vancomycin -09/09/2010 Hospital/Home IV CF exacerbation- X 24 days (Pulm. exacerbation with hemoptysis) Meropenem, tobramycin, Vancomycin -10/29/2010 Home treatment Zyvox po X 2 weeks -11/13/2010 Hospital/surgery at [place]: Splenorenal shunt --- -03/13/2011 Home treatment Bactrim po X 21 days -09/18/11 - cipro and rifampin x 14 days -10/23/11 - restart cipro and rifampin x 14 days -11/15/11 - CF exacerbation - Admit for IV start; Meropenem, tobramycin, vancomycin until 12/18/11 --- -02/19/2012 Cipro and Bactrim x14 days -09/03/12 - cipro and bactrim x 14 days --- -12/09/2012- bactrim and cipro x 14 days -01/15/13 admit Hospitalized - CF Exacerbation: IV larisa, tobra cont at home, finish PO zyvox -01/30/13 - Hospitalized - CF Exacerbation: IV larisa, tobra, vanco contd at home, also PO itraconazole & bactrim -06/21/13- 06/25/13 Hospitalized - CF Exacerbation: IV vanc & ceftaz. cont'd at home -07/23/13 diflucan x 1 tab -08/25/13- cipro and bactrim x 14 days over phone -09/03/2013- 10/06/13 -: home IV Zyvox, IV Vancomycin, po Bactrim --- - 12/08/2013 Zyvox x21 days - 03/16/14 Cipro and bactrim over phone - 04/11/14 Admit - CF Exacerbation and home on IV Meropenem and IV Vancomycin until 04/27/14 - 06/29/14- 07/04/14 for hemoptysis. Was started on IV antibiotics which were d/c'd due to low WBC - 07/27/14 Cipro & Bactrim x14 days - 08/22/14 Cipro & Bactrim - 08/26/14 Admit 23 hours- CF Exacerbation Home on IV Meropenem, IV Vancomycin and IV Tobramycin - 10/28/14 Cipro & Bactrim x14 days - 11/14/14-11/15/2014 Admit CF Exacerbation Home on IV Meropenem, IV Vancomycin, and IV Tobramycin - 11/22/[address] --- IV continued until 12/07/2014 - 02/10/15 Home IVs CF Exacerbation IV Meropenem, IV Vancomycin, and IV Tobramycin - 08/23/2015 Home IVs CF Exacerbation IV Meropenem, IV Vancomycin, and IV Tobramycin ---- - 09/02/16 - Home IV's Larisa/tobra/vanco - 09/16/16 - Po prednisone added x5 days in addition to IV's --- - 07/14/17 - PO Cipro/Bactim - 08/27/17 - Home IV- Vanco/Larisa/Tobra - 01/19/18 - PO Cipro/Bactrim - 02/09/18 - PO Cipro/Zyvox - 02/23/18 - Home IV Larisa/Tobra/Vanco - 05/27/18 - Home IV Vanco/Tobra/Meropenem - 09/14/18 - PO Doxy - 10/19/18 - PO Cipro/Bactrim ----- - 12/28/18 - Home IV Larisa/Vanco/Tobra ------ - 03/19/21- PO Levaquin/Minocycline Immunization History Administered Date(s) Administered COVID-19 booster vaccine, age 12+ yr, bivalent ([employer]) 12/04/2022 COVID-19 original vaccine, age 12+ yr, monovalent ([employer] - PURPLE TOP) 12/24/2020 01/21/2021 12/05/2021 Haemophilus influenzae b (HbOC) vaccine, 4-dose series (HIBTITER) 1995 01/11/1994 05/20/1994 02/13/1995 Haemophilus influenzae b (Hib PRP-T) vaccine, 4-dose series (ACTHIB, HIBERIX) 07/16/1995 diphtheria tetanus pertussis (DTP) vaccine 1995 01/11/1994 05/20/1994 02/13/1995 07/16/1995 07/18/1999 hepatitis B (HepB) vaccine, 3-dose series, age 0 yr - 19 yr (ENGERIX B-PEDS, RECOMBIVAX HB-PEDS) [birth year] 05/20/1994 influenza (IIV3) vaccine, trivalent (AFLURIA, FLULAVAL, FLUVIRIN, FLUZONE) 10/23/2011 09/13/2013 11/05/2018 influenza (IIV4) vaccine, age 6 mo - 64 yr, quadrivalent (AFLURIA, FLULAVAL, FLUZONE) 12/04/2022 influenza (IIV4) vaccine, age 6 mo - 64 yr, quadrivalent, PF (AFLURIA, FLUARIX, FLULAVAL, FLUZONE) 09/02/2016 10/11/2019 influenza (IIV4) vaccine, quadrivalent (AFLURIA, FLULAVAL, FLUZONE) 11/05/2018 influenza vaccine, whole virus 10/03/2010 measles mumps rubella (MMR) vaccine (M-M-R II, PRIORIX) 02/13/1995 06/13/1999 meningococcal (MenACWY-D) vaccine, quadrivalent (MENACTRA) 05/27/2012 meningococcal (MenACYW) vaccine, quadrivalent, unspecified formulation 05/27/2012 novel influenza (R2F4-70) vaccine, PF 10/19/2009 pneumococcal (PCV13) vaccine, 13 valent (PREVNAR 13) 05/26/2019 pneumococcal (PCV7) vaccine, 7 valent (PREVNAR 7) 01/08/2006 pneumococcal (PPV23) vaccine, 23 valent (PNEUMOVAX 23) 10/23/2011 07/28/2019 poliovirus (IPV) vaccine, inactivated (IPOL) 1995 01/11/1994 05/20/1994 02/13/1995 tetanus diphtheria pertussis (Tdap) vaccine, age 7+ yr (ADACEL, BOOSTRIX) 05/29/2012 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) Transfusion history Type 1 diabetes mellitus with hyperglycemia (HCC) PAST SURGICAL HISTORY Procedure Laterality Date PAST SURGICAL HISTORY OF splenal renal shunt to treat portal hypertension FAMILY HISTORY Problem Relation Age of Onset Hypertension Mother Breast Cancer Other other (hypercholesterolemia) Other other (heart disease in female family member before age 65) Other Social History Tobacco Use Smoking status: Never Smokeless tobacco: Never Vaping Use Vaping Use: Never used Substance Use Topics Alcohol use: No Drug use: No ALLERGIES: ALLERGIES Allergen Reactions Vancomycin Itching, Rash Gets Red Man syndrome and pt if not premedicated with benadryl prior to Vancomycin infusions. Cefoxitin Rash, Other: See Comments Severe abdominal pain, diarrhea, rash Severe Abdominal Pains CURRENT OUTPATIENT MEDICATIONS: Blood-Glucose Meter,Continuous (DEXCOM G7 CODER OPERATOR) misc For monitoring sugars Blood-Glucose Sensor (DEXCOM G7 SENSOR) jean-paul One sensor every 10 days insulin lispro (HUMALOG KWIKPEN INSULIN) 100 unit/mL Dose varies units with meals and sliding scale, using about 30 total units a day Insulin Calvin, Disposable, (BD ULTRA-FINE YARON PEN NEEDLE) 32 gauge x 5/32 5x/day glucagon (BAQSIMI) 3 mg/actuation nasal spray Use 1 Calvin in the nose as needed. May repeat after 15 minutes using a new device if there is no response for severe low blood sugar event insulin glargine (BASAGLAR KWIKPEN U-100 INSULIN) 100 unit/mL (3 mL) Inject 8 units subcutaneously at bedtime aztreonam lysine (CAYSTON) 75 mg/mL nebulizer solution Inhale 1 mL as instructed three times daily.28 days on 28 days off Send altera nebulizer with each shipment dornase christi (PULMOZYME) 1 mg/mL nebulizer solution Inhale 2.5 mL as instructed once daily. cetirizine (ZYRTEC) 5 mg tablet Take 10 mg by mouth once daily. ywswoorutsd-dqojajvopv-ezuzzlgki (TRIKAFTA) 100-50-75 mg(d) /150 mg (n) tablet Take 2 tablets by mouth every 48 hours. Take 2 orange tablets on even number days. Then take 1 tablet on Odd number days. Discard blue tablets. DO NOT crush, chew, or open. montelukast (SINGULAIR) 10 mg tablet Take 1 tablet by mouth daily at bedtime. (Patient taking differently: Take 10 mg by mouth every morning.) citalopram hydrobromide (CELEXA) 20 mg tablet Take 1 tablet by mouth once daily. ursodiol (ACTIGALL) 300 mg capsule Take 300 mg by mouth twice daily. Nebulizers 1 Each three times daily. albuterol HFA (PROAIR HFA) 90 mcg/actuation inhaler Inhale 2 Puffs as instructed every 4 hours as needed for wheezing/shortness of breath. VITAMIN D2 1,250 mcg (50,000 unit) capsule Take 1 capsule by mouth two times a week. fluticasone (FLOVENT) 220 mcg/actuation inhaler Inhale 1 Puff as instructed once daily as needed. (Patient taking differently: Inhale 1 Puff as instructed twice daily.) CREON 36,000-114,000- 180,000 unit capsule Take 3 capsules by mouth. With every meal sulfamethoxazole-trimethoprim (BACTRIM DS) 800-160 mg per tablet Take 1 tablet by mouth twice dailyfor 14 days. (Patient not taking: Reported on 03/05/2023) levoFLOXacin (LEVAQUIN) 750 mg tablet Take 1 tablet by mouth once daily for 14 days. (Patient not taking: Reported on 03/05/2023) Nebulizers 1 Each three times daily. (Patient not taking: Reported on 03/05/2023) carvedilol (COREG) 6.25 mg tablet Take 1 tablet by mouth twice daily with meals. (Patient not taking: Reported on 03/05/2023) ipratropium-albuterol (DUONEB) 0.5 mg-3 mg(2.5 mg base)/3 mL nebu Inhale 3 mL as instructed twice daily as needed. (Patient not taking: Reported on 03/05/2023) fluticasone-salmeterol (ADVAIR) 500-50 mcg/dose dsdv Inhale 1 Puff as instructed twice daily. (Patient not taking: Reported on 03/05/2023) REVIEW OF SYSTEMS See HPI PHYSICAL EXAMINATION: VITAL SIGNS: BP 140/90 Pulse 105 Temp (Src) 98 (Temporal) Resp 24 Ht 5' 2.012 (1.58m) Wt86 lb 13.8 oz (39.4kg) SpO2 97% BMI 15.88 kg/(m^2). PHYSICAL EXAMINATION: General appearance: Thin and pale, but non toxic. Respting comfortably with rare cough. Skin: pale, with nl turgor and cap refill Head: Normocephalic, no masses, lesions, tenderness or abnormalities Eyes: Anicteric sclera. Pupils are equally round and reactive to light. Extraocular movements are intact. Nose/Sinuses: patent, with mildly inflamed mucosa. Oropharynx: Lips, mucosa, and tongue normal, teeth and gums normal, oropharynx normal Neck: Supple, no adenopathy; thyroid symmetric, normal size, no bruits Back: no pain to palpation, good flexion and extension Lungs: Coarse respirations with prolonged expiration, without wheeze. Faint crackles without rhonci. Fair AE (baseline exam) Heart: RRR without murmur, gallop, or rubs. No ectopy Abdomen: flat, scaphoid. Liver palpable at margin, firm Extremities: moderate clubbing, without duskiness Musculoskeletal: thin and cachectic. FROM Peripheral pulses: Normal Neuro: Gait normal. Reflexes normal and symmetric. Sensation grossly intact. DATA: Diagnostic tests reviewed for today's visit were personally reviewed by me: Sputum culture results and Most recent labs LAST LAB RESULTS: ---Reviewed in [facility] Latest Reference Range & Units 07/17/22 10:26 11/05/22 14:31 Hemoglobin A1C 4.3 - 5.6 % 8.6 (H) 8.4 (H) (H): Data is abnormally high CBC with diff: WBC 4.62 02/26/2023 RBC 4.22 02/26/2023 Hemoglobin 13.3 02/26/2023 Hematocrit 38.6 02/26/2023 MCV 91.5 02/26/2023 MCH 31.5 02/26/2023 MCHC 34.5 02/26/2023 RDW-CV 13.7 02/26/2023 Platelet Count 241 02/26/2023 MPV 9.5 02/26/2023 Neutrophils % 65.6 02/26/2023 Lymph% 21.0 02/26/2023 [place]% 7.8 02/26/2023 Eosin% 16.6 11/26/2022 Baso% 1.5 02/26/2023 Abs Neut (Segs + Bands) 3.03 02/26/2023 Abs [place] 0.36 02/26/2023 Abs Eosin 0.17 02/26/2023 Abs Baso 0.07 02/26/2023 Glucose (mg/dL) Date Value 02/26/2023 355 12/08/2015 113 Potassium Date Value 02/26/2023 4.5 mmol/L 11/26/2022 4.4 Sodium Date Value 02/26/2023 130 mmol/L 12/08/2015 139 mEq/L Chloride Date Value 02/26/2023 95 mmol/L 12/08/2015 102 mEq/L CO2 Date Value 02/26/2023 28 mmol/L 12/08/2015 31 mEq/L Creatinine Date Value 02/26/2023 0.97 mg/dL 11/26/2022 1.16 MG/DL BUN (mg/dL) Date Value 02/26/2023 13 12/08/2015 16 Anion Gap Date Value 02/26/2023 7 mmol/L 12/08/2015 11 Calcium (mg/dL) Date Value 12/08/2015 9.3 Calcium, Total (mg/dL) Date Value 02/26/2023 8.3 Protein, Total (g/dL) Date Value 02/26/2023 7.7 12/08/2015 9.5 Albumin (g/dL) Date Value 02/26/2023 2.6 12/08/2015 3.4 Bilirubin, Total Date Value 02/26/2023 0.5 mg/dL 11/26/2022 0.80 Alkaline Phosphatase Date Value 02/26/2023 1,184 U/L 11/26/2022 1,147 AST Date Value 02/26/2023 63 U/L 11/26/2022 145 ALT Date Value 02/26/2023 39 U/L 11/26/2022 145 Vitamin D 25 Hydroxy (ng/mL) Date Value 11/06/2022 9.1 ] Hemoglobin A1C (%) Date Value 11/05/2022 8.4 2022 8.6 02/12/2021 8.8 12/08/2015 8.3 Hemoglobin A1c (%) Date Value 05/22/2021 7.4 09/11/2020 6.4 12/30/2019 6.9 Hemoglobin A1C (POCT) (%) Date Value 12/24/2021 7.5 09/10/2021 7.4 05/22/2021 7.4 09/11/2020 6.4 HGBA1C (%) Date Value 07/30/2019 6.5 04/30/2019 6.6 01/25/2019 8.1 09/10/2018 8.2 05/29/2018 10.3 06/25/2016 7.0 SPIROMETRY: Reviewed in [facility] ID: [id number] Name: KRIS BARBERN Race: White Ht: 62.01 in Wt: 86.86 lbs Age: 27 Gender: Male : 1995 Dx: Cystic Fibrosis - Unspecified. May include CFTR disorder. Smoking Hx: Non-smoker Doctor: SHE PETE Test Date: 03/05/2023 Site: [facility] [employer]: Kaylen Daigle PRE-BRONCH POST-BRONCH Pre LLN Pred ULN %Pred Post %Pred %Chg SPIROMETRY FVC (L) 2.43 3.28 4.07 4.87 59 FEV1 (L) 0.86 2.75 3.44 4.11 24 FEV1/FVC 0.35 0.73 0.85 0.94 41 PEF L/s (L/sec) 3.95 6.74 8.55 10.37 46 FEF50 (L/sec) 0.33 2.02 4.15 6.27 8 FIF50 (L/sec) 3.13 FEF50/FIF50 0.11 90-100 FIVC (L) 2.14 UKQ51-56 (L/sec) 0.25 2.33 3.74 5.48 6 Time (sec) 14.16 FET PEF (sec) 0.04 MACIEL (L) 0.02 Vol Extrap % (%) 1 SPIROMETRY BASELINE ONLY ([id number]) - ordered on 12/04/22 ID: [id number] Name: ELISABETH JAY Race: White Ht: 62.01 in Wt: 89.51 lbs Age: 27 Gender: Male : 1995 Dx: Cystic fibrosis_ Smoking Hx: Non-smoker Doctor: SHE PETE Test Date: 12/04/2022 Site: [facility] [employer]: Kaylen Daigle PRE-BRONCH POST-BRONCH Pre LLN Pred ULN %Pred Post %Pred %Chg SPIROMETRY FVC (L) 2.16 3.29 4.08 4.88 52 FEV1 (L) 0.75 2.75 3.44 4.11 21 FEV1/FVC 0.35 0.73 0.85 0.94 40 PEF L/s (L/sec) 3.59 6.73 8.55 10.37 41 FEF50 (L/sec) 0.24 2.03 4.16 6.28 5 FIF50 (L/sec) 2.45 FEF50/FIF50 0.10 90-100 FIVC (L) 2.04 EVF30-76 (L/sec) 0.20 2.34 3.75 5.49 5 Time (sec) 14.92 FET PEF (sec) 0.04 MACIEL (L) 0.02 Vol Extrap % (%) 1 Comments: ATS/ERS acceptability and repeatability standards for spirometry met. //KS SPIROMETRY BASELINE ONLY ([id number]) - ordered on 11/20/22 PRE-BRONCH POST-BRONCH Pred LLN ULN Actual %Pred Actual %Chng SPIROMETRY FVC (L) 4.08 3.29 4.88 2.34 57 FEV1 (L) 3.44 2.75 4.11 0.82 23 FEV1/FVC 0.85 0.73 0.94 0.35 41 FEF25 (L/sec) 0.54 FEF50 (L/sec) 4.16 2.03 6.28 0.27 6 FEF75 (L/sec) 1.51 0.80 2.67 0.10 6 QCK21-51 (L/sec) 3.75 2.34 5.50 0.22 5 PEF L/s (L/sec) 8.55 6.73 10.37 3.81 44 FIVC (L) 2.25 FIF50 (L/sec) 2.88 PIF (L/sec) 3.14 Time (sec) 14.45 MACIEL (L) 0.02 FET PEF (sec) 0.04 SPIROMETRY BASELINE ONLY ([id number]) - ordered on 11/05/22 PRE-BRONCH POST-BRONCH Pred LLN ULN Actual %Pred Actual %Chng SPIROMETRY FVC (L) 4.08 3.29 4.88 1.72 42 FEV1 (L) 3.44 2.75 4.11 0.62 17 FEV1/FVC 0.85 0.73 0.94 0.36 42 FEF25 (L/sec) 0.42 FEF50 (L/sec) 4.16 2.04 6.28 0.22 5 FEF75 (L/sec) 1.51 0.80 2.68 0.10 6 XAB35-02 (L/sec) 3.75 2.34 5.50 0.17 4 PEF L/s (L/sec) 8.55 6.73 10.37 2.68 31 FIVC (L) 1.30 FIF50 (L/sec) 2.06 PIF (L/sec) 2.06 Time (sec) 13.10 MACIEL (L) 0.03 FET PEF (sec) 0.07 MICROBIOLOGY: Reviewed MICROBIOLOGY SNAPSHOT 11/05/2022 Moderate Methicillin resistant Staphylococcus aureus Abnormal [place] PBP2a SA Culture [place] Test PBP2a was detected by an immunochromatographic assay. PBP2a is encoded for by the mecA gene. This isolate is methicillin-resistant. Few Burkholderia cepacia complex Abnormal No Pseudomonas aeruginosa isolated. CF Pulmonary Exacerbation (MRSA, B Cepacia complex- vietnamiensis), moderate Failed PO Bactrim DS PO BID, Levofloxacin 750mg daily (took for 5 days) Continue No SHEPHERD Plan for inpatient admission with PICC Lung Function ---Baseline FEV1 is 28 % predicted. ---Pre-treatment FEV1 was 21% predicted, and is 24% today (03/05/2022) Anti-inflammatory therapy and Airway obstruction ---not on Azithromycin due to prior NTM ---Patient doing acapella twice daily ---dornase every day 2. CF liver disease - s/p acute transaminitis - suspect related to IV abx, trikafta held consider restarting hepatically adjusted Trikafta after acute exacerbation 3. Acute kidney injury with last IV antibx course -resolved 4. CFRD Continue to monitor glucoses Electronically Signed: Jean Pierre Kilgore MD, FRANCI, FACP [facility] Respiratory [place] [facility] Adult CF Patients [phone]. Adult patients use option #2 Bronchiectasis (Non-CF) Patients [phone] Lump Room Supervisor: Nell Lozano [phone] Email: [email or web address] Office: [phone] March 05, 2023 documented in this encounterOhio[facility]04-[facility]23 History of Present illness Narrative* Kaylen Solomon - 03/05/2023 3:53 PM EDT PULM FUNCTION SMARTBLOCK: Provider: Jean Pierre Kilgore MD Spirometry: 1 documented in this encounterOhio[facility]03-29-2023 History of Present illness Narrative* Jean Pierre Kilgore MD - 02/26/2023 2:05 PM EDT Images from the original note were not included. PULMONARY MEDICINE CYSTIC FIBROSIS FOLLOW UP Patient Name: Jay Barber PRIMARY CARE PHYSICIAN: No primary care provider on file. Portions of this note were taken from the notes dated 12/04/2022 Jay Barber is a 27 year old male seen for acute exacerbation of CF pulmonary disease. Had returned to near baseline after hospitalization and home IVs in Oct-Dec . Missed f/u visit in Jan. No labs, but last set 12/03/22 showed mild increase in bili (1.2-1.4), but improvement in LFTs, alk phos and creatinine. Eosinophils were further up. 10 days ago developed increase fatigue and had 2 episodes oh hemoptysis accompanied by right upper chest gurgling. Each lasted 15 minutes, ~30-60 cc (estimated). No real increase in cough or sputum, no fever or chills, but does have increased work of breathing. No nausea or vomiting. Weight back down to 38.9 kg (had been up to 40.6 kg). 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 We discussed the following today: Non toxic appearing, but with concern re CFPEx given hemoptysis and consitutional sxs. Hasn't rechecked labs following tranaminitis, impaired kidney function, and elevated eosinophils with recent hospitalization We can't check PFTs because of your recent hemoptysis Get labs today as ordered. Start PO Bactrim DS and Levofloxacin for presumed CFPEx with MRSA and B Cepacia. Continue Airway clearance, No Let us know if you worsen Follow up with me in 1 week 1. CYSTIC FIBROSIS PULMONARY DISEASE AND BRONCHIECTASIS Symptoms stable FEV1% predicted today: Not checked, most recent 22% Complicated by chronic respiratory tract infection with PsA, Burkholderia vietnamiensis (sent to [facility] in 2019), MRSA Chronic maintenance regimen: CFTR modulators: (stopped during hospitalization, not yet restarted) Trikafta - was on adjusted dosing due to Cirrhosis - reports taking 2 orange pills on even days of the month and 1 orange pill on odd days of the month, No blue pills - will f/up LFTs today Pulmozyme: restarted Hypertonic saline: has at home but not currently using Chronic Azithromycin (anti-inflammatory): No (on hold due to prior NTM) Inhaled Abx: No Ibuprofen: No Nebulized short-acting bronchodilator: albuterol as needed Nebulized other: PEP device: has acapella VEST: not currently using ICS: Advair 500/50mg 2 puffs BID Oral prednisone: as needed Pulm rehab: not currently using Supplemental oxygen use: no Exercise and minutes per week: brisk walking/ lifting, 2 hrs per week Recommended ORDER OF AIRWAY CLEARANCE: Albuterol, Hypertonic, VEST (with hypertonic), pulmozyme, Inhaled antibiotics, Inhaled corticosteroids ADVANCED LUNG DISEASE (criteria: FEV1 < 40) and CHRONIC HYPOXEMIC RESPIRATORY FAILURE ---Supplemental oxygen: no ---BIPAP: no ---Pulmonary rehab: no ---ECHO: will need to repeat ---Weight: BMI of 16.37 (12/04/2021) ---Discussed lung transplantation: yes, 12/04/2022 - not currently interested. ---Referred for lung transplantation: not at this time per patient preference CHRONIC RESPIRATORY TRACT PSEUDOMONAS AND BURKHOLDERIA ---Mucoid phenotype ---Inhaled antibiotic: previously used cayston montly alternating with MUKESH podhaler - not currently doing, but starting Cayston tomorrow. Does have the altera device ---Not on chronic azithromycin due to NTM ---Oral antibiotic that patient responds to: Cipro and Bactrim ---IV abx that patient responds to: IV TOBRAMYCIN, meropenem, vancomycin CYSTIC FIBROSIS PANCREATIC INSUFFICIENCY ---No generic enzymes, ever. ---Creon 36,000, 3-4 BEFORE meals AND 2-3 BEFORE snacks ---Fat soluble supplemental vitamins: Vitamin K 40 mcg daily ---CF Vitamins: MVI 2 daily ---Vitamin D2 50,000 weekly Vitamin D 25 Hydroxy (ng/mL) Date Value 07/27/2022 16.0 CYSTIC FIBROSIS LIVER DISEASE --- cirrhosis complicated by esophageal varices, portal hypertension --- Actigall restarted during last hospitalization - --- last RUQ US in 07/27/2022 - cirrhotic liver morphology. No focal hepatic lesions, fatty replacement of the pancreas compatible with underlying cystic fibrosis, mild splenomegaly --- last EGD - 07/30/2022 - small (<5mm) varices were found in the lower third of the esophagus. The entire examined stomach was normal. The examined duodenum was normal. --- last saw hepatology on 07/30/2022 while inpatient - requested hepatology outpatient follow-up --- on mephyton 5mg MWF CHRONIC PANSINUSITIS Sinuses can be a reservoir of bacterial infection and contribute to recurrent lower respiratory tract infections, especially in patients infected with Pseudomonas Symptoms are worse Nasal polyps - unknown? ---Antihistamine: zyrtec ---Nasal steroid: flonase ---Montelukast: added but discussed possible changes with mood ---If not improving with restart sinus medications - will obtain CT sinus and referral to ENT - would like to hold off on this for now given most likely related to change in weather ---Referral to ENT for surgical eval. Appt [phone]. CYSTIC FIBROSIS RELATED DIABETES ---The standard medical therapy for CFRD is subcutaneous insulin (oral diabetic agents should not be used); ---Patient currently on insulin therapy. ---Self monitored blood glucose 3 times per day ---Most recent hgA1c noted. ---Following with Dr. Francis Ramirez at [facility] Severe protein calorie malnutrition - continue ensures - will have fernando follow-up with him Prior Invasive Pulmonary Aspergillus infection/Trichosporonosis - treated with voriconazole by ID cosmetic consultant Dr. Burke France in 2019 for 1 year Depression/Anxiety ---continues on celexa 20 mg PO daily - refilled l101/21/2022 and restarted ---will see if SW is able to see him in the next week or so HTN ---amlodipine 10 mg PO daily (had hyperkalemia with SEVERINO-I) Proteinuria --- previously seen by Dr. Ahuja in nephrology Hemoglobin A1C (%) Date Value 2022 8.6 02/12/2021 8.8 12/08/2015 8.3 Hemoglobin A1c (%) Date Value 05/22/2021 7.4 09/11/2020 6.4 12/30/2019 6.9 Hemoglobin A1C (POCT) (%) Date Value 12/24/2021 7.5 09/10/2021 7.4 05/22/2021 7.4 09/11/2020 6.4 HGBA1C (%) Date Value 07/30/2019 6.5 04/30/2019 6.6 01/25/2019 8.1 09/10/2018 8.2 05/29/2018 10.3 06/25/2016 7.0 ANNUAL SCREENING: Annual labs: completed 2021 OGTT: not needed due to CFRD DEXA: needs Colonoscopy: Start screening at age 35-40 years in CF due to increased risk of GI carcinoma: not ofage as of yet Prior exacerbation treatments per [facility] Procedures & IV/Oral Course: -12/15/95-12/23/95 Hospitalized d/t CF, Influ A, DM- IV ABX, BS monitoring -02/24/96-03/01/96 Hospitalized d/t CF exacerbation and DM- IV Cefuroxime -03/01/96 Home Treatment - CF exacerbation - IV Cefuroxime --- -06/15/97-06/21/97 Hospitalized - CF exac.-IV Tobra and Timentin -06/21/97 Home Treatment -CF exacerbation IV Tobra and Timentin --- -08/07/99-08/10/99 Hospitalized - BS out of control - Insulin started, IV Zosyn and Tobra -08/10/99 Home Treatment -CF exacerbation IV Zosyn and Tobra --- -03/19/00-03/22/00 Hospitalized - CF exacerbation - IV Zosyn and Tobra - 03/22/00 Home Treatment -CF exacerbation IV Zosyn and Tobra -04/14/00-04/17/00 Hospitalized - viral illness, fever - PFTs, labs, airosols, PD -08/10/00-08/20/00 Hospitalized - FUO - CT Chest and Gallium Scan (bronchiectasis RUL and LLL --- -02/18/01 OPS- Colonoscopy and biopsy, r/o fibrosing colonopathy --- -03/10/02-03/14/02 Hospitalized -CF exacerbation - IV Tobra and Meropenem -03/14/02-03/24/02 Home Treatment - CF exacerbationIV Tobra and Meropenem --- -06/15/03-06/16/03 Hospitalized - CF exacerbation, chronic bronchitis, D.M. - IV Tobra and Meropenen -06/16/03-06/29/03 Home Treatment -CF exacerbation IV Tobra and Meropenem --- -12/07/2003 Home Treatment - Zyvox x14 days -01/09/2004 Home Treatment - CF exacerbation IV Cefoxitin and po Biaxin treatment atypical mycobacteria -02/08/2004-02/22/2004 Hospitalized - CF exacerbation - IV course of Vancomycin, Tobramycin, and Meropenem x14 days total -09/25/2004 Home Treatment - Cipro x21 days -10/18/2004- 10/24/2004 Hospitalized - CF exacerbation - IV course of Meropenem and Tobramycin and Bactrim po x14 days total -11/21/2004 Home Treatment - Cipro and Duricef x14 days --- -12/26/2004 Home Treatment - Cipro and Duricef x14 days -02/11/2005 Home Treatment - Cipro x14 days -02/27/2005 Home Treatment - po Cipro x7 more days and Prednisone x5 days --- -08/05/2006 Home Treatment - po Bactrim x14 days -09/24/2006 Home Treatment - po Zyvox x14 days -10/11/2006 to 10/17/2006 Hospitalized - CF exacerbation - IV course of Tobramycin, IV Timentin, and IV Zyvox later changed to IV Vancomycin because of pancytopenia- completed three weeks at home -11/26/2006 Home Treatment - po Cipro and po Zyvox x21 days --- -02/10/2007 Home Treatment - po Cipro and po Bactrim x14 days -04/03/2007 to 04/08/2007 Hospitalized - CF exacerbation with first hemoptysis- IV course of Tobramycin, IV Ceftazidime and IV Zyvox continued at home until 04/17/2007- short of three weeks because of thrombocytopenia -04/22/[address] Trejo- low platelets and low white count most likely from cobination of hypersplenism, illness and antibiotics -05/04/[address] 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 --- -06/27/08 - 07/01/08 Hospitalized - CF exacerbation - IV course of Meropenem, Tobramycin and Linezolid. IVs continued at home for total 3 wks. -10/26/08 Home Treatment - PO Cipro and Bactrim DS x 21 days -11/21/08 - 11/28/08 Hospitalized -CF exacerbation - IV course of Timentin, Vancomycin and Tobramycin. IVs continued at home for total 3 wks --- -01/25/09 Home Treatment - PO Zyvox x 10 days -02/01/09 Home Treatment - PO Bactrim DS x 7 days due to rash possibly due to Zyvox (was on for 6 days) -08/23/2009 Hospital/Home CF exacerbation, IV Meropenem, Tobramycin, Vancomycin X 3 weeks --- -04/11/2010 Home treatment Zyvox po X 14 days -04/29/2010-05/02/2010 Hospital: GI bleed secondary to esophageal varices -05/24/2010 OPS: Upper endoscopy with banding of esophageal varices -06/26/2010 Hospital/Home IV -CF exacerbation - 2 weeks Meropenem, Tobramycin, Vancomycin -09/09/2010 Hospital/Home IV CF exacerbation- X 24 days (Pulm. exacerbation with hemoptysis) Meropenem, tobramycin, Vancomycin -10/29/2010 Home treatment Zyvox po X 2 weeks -11/13/2010 Hospital/surgery at [place]: Splenorenal shunt --- -03/13/2011 Home treatment Bactrim po X 21 days -09/18/11 - cipro and rifampin x 14 days -10/23/11 - restart cipro and rifampin x 14 days -11/15/11 - CF exacerbation - Admit for IV start; Meropenem, tobramycin, vancomycin until 12/18/11 --- -02/19/2012 Cipro and Bactrim x14 days -09/03/12 - cipro and bactrim x 14 days --- -12/09/2012- bactrim and cipro x 14 days -01/15/13 admit Hospitalized - CF Exacerbation: IV larisa, tobra cont at home, finish PO zyvox -01/30/13 - Hospitalized - CF Exacerbation: IV larisa, tobra, vanco contd at home, also PO itraconazole & bactrim -06/21/13- 06/25/13 Hospitalized - CF Exacerbation: IV vanc & ceftaz. cont'd at home -07/23/13 diflucan x 1 tab -08/25/13- cipro and bactrim x 14 days over phone -09/03/2013- 10/06/13 -: home IV Zyvox, IV Vancomycin, po Bactrim --- - 12/08/2013 Zyvox x21 days - 03/16/14 Cipro and bactrim over phone - 04/11/14 Admit - CF Exacerbation and home on IV Meropenem and IV Vancomycin until 04/27/14 - 06/29/14- 07/04/14 for hemoptysis. Was started on IV antibiotics which were d/c'd due to low WBC - 07/27/14 Cipro & Bactrim x14 days - 08/22/14 Cipro & Bactrim - 08/26/14 Admit 23 hours- CF Exacerbation Home on IV Meropenem, IV Vancomycin and IV Tobramycin - 10/28/14 Cipro & Bactrim x14 days - 11/14/14-11/15/2014 Admit CF Exacerbation Home on IV Meropenem, IV Vancomycin, and IV Tobramycin - 11/22/[address] --- IV continued until 12/07/2014 - 02/10/15 Home IVs CF Exacerbation IV Meropenem, IV Vancomycin, and IV Tobramycin - 08/23/2015 Home IVs CF Exacerbation IV Meropenem, IV Vancomycin, and IV Tobramycin ---- - 09/02/16 - Home IV's Larisa/tobra/vanco - 09/16/16 - Po prednisone added x5 days in addition to IV's --- - 07/14/17 - PO Cipro/Bactim - 08/27/17 - Home IV- Vanco/Larisa/Tobra - 01/19/18 - PO Cipro/Bactrim - 02/09/18 - PO Cipro/Zyvox - 02/23/18 - Home IV Larisa/Tobra/Vanco - 05/27/18 - Home IV Vanco/Tobra/Meropenem - 09/14/18 - PO Doxy - 10/19/18 - PO Cipro/Bactrim ----- - 12/28/18 - Home IV Larisa/Vanco/Tobra ------ - 03/19/21- PO Levaquin/Minocycline Immunization History Administered Date(s) Administered COVID-19 original vaccine, age 12+ yr, monovalent ([employer] - PURPLE TOP) 12/24/2020 01/21/2021 12/05/2021 DTP 1993 01/11/1994 05/20/1994 02/13/1995 07/16/1995 07/18/1999 HIB PRP-T Conjugated -4 Dose Series 07/16/1995 Hepatitis B Peds/Adol [birth year] 05/20/1994 Hib - 4 Dose Schedule 1995 01/11/1994 05/20/1994 02/13/1995 IPV 1993 01/11/1994 05/20/1994 02/13/1995 Influenza 10/23/2011 09/13/2013 11/05/2018 Influenza Seasonal Inj Quad Age 6 Mo-64 Yrs Pres Free 09/02/2016 10/11/2019 Influenza Seasonal Inj Quadrivalent 11/05/2018 Influenza Vaccine, Whole 10/03/2010 Meningococcal Conj IM Unspec 05/27/2012 Meningococcal Conjugate MCV4P Vaccine, IM 05/27/2012 Novel Influenza H1N1, preservative free 10/19/2009 Pneumococcal Vac Conjugate(#7 thru MARCH 2010 then #13 thereafter) 01/08/2006 Pneumococcal-13 Vac Conjugate 05/26/2019 Pneumovax 10/23/2011 07/28/2019 Tdap (Age 7+) 05/29/2012 measles mumps rubella (MMR) vaccine (M-M-R II, PRIORIX) 02/13/1995 06/13/1999 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) Transfusion history Type 1 diabetes mellitus with hyperglycemia (HCC) PAST SURGICAL HISTORY Procedure Laterality Date PAST SURGICAL HISTORY OF splenal renal shunt to treat portal hypertension FAMILY HISTORY Problem Relation Age of Onset Hypertension Mother Breast Cancer Other other (hypercholesterolemia) Other other (heart disease in female family member before age 65) Other Social History Tobacco Use Smoking status: Never Smokeless tobacco: Never Vaping Use Vaping Use: Never used Substance Use Topics Alcohol use: No Drug use: No ALLERGIES: ALLERGIES Allergen Reactions Vancomycin Itching, Rash Gets Red Man syndrome and pt if not premedicated with benadryl prior to Vancomycin infusions. Cefoxitin Rash, Other: See Comments Severe abdominal pain, diarrhea, rash Severe Abdominal Pains CURRENT OUTPATIENT MEDICATIONS: insulin lispro (HUMALOG KWIKPEN INSULIN) 100 unit/mL Dose varies units with meals and sliding scale, using about 30 total units a day Insulin Calvin, Disposable, (BD ULTRA-FINE YARON PEN NEEDLE) 32 gauge x 5/32 5x/day glucagon (BAQSIMI) 3 mg/actuation nasal spray Use 1 Calvin in the nose as needed. May repeat after 15 minutes using a new device if there is no response for severe low blood sugar event insulin glargine (BASAGLAR KWIKPEN U-100 INSULIN) 100 unit/mL (3 mL) Inject 8 units subcutaneously at bedtime aztreonam lysine (CAYSTON) 75 mg/mL nebulizer solution Inhale 1 mL as instructed three times daily.28 days on 28 days off Send altera nebulizer with each shipment dornase christi (PULMOZYME) 1 mg/mL nebulizer solution Inhale 2.5 mL as instructed once daily. cetirizine (ZYRTEC) 5 mg tablet Take 10 mg by mouth once daily. carvedilol (COREG) 6.25 mg tablet Take 1 tablet by mouth twice daily with meals. hgaidfqqszq-cdtjdfdyib-vtyijtlsm (TRIKAFTA) 100-50-75 mg(d) /150 mg (n) tablet Take 2 tablets by mouth every 48 hours. Take 2 orange tablets on even number days. Then take 1 tablet on Odd number days. Discard blue tablets. DO NOT crush, chew, or open. ipratropium-albuterol (DUONEB) 0.5 mg-3 mg(2.5 mg base)/3 mL nebu Inhale 3 mL as instructed twice daily as needed. montelukast (SINGULAIR) 10 mg tablet Take 1 tablet by mouth daily at bedtime. (Patient taking differently: Take 10 mg by mouth every morning.) citalopram hydrobromide (CELEXA) 20 mg tablet Take 1 tablet by mouth once daily. ursodiol (ACTIGALL) 300 mg capsule Take 300 mg by mouth twice daily. Nebulizers 1 Each three times daily. albuterol HFA (PROAIR HFA) 90 mcg/actuation inhaler Inhale 2 Puffs as instructed every 4 hours as needed for wheezing/shortness of breath. VITAMIN D2 1,250 mcg (50,000 unit) capsule Take 1 capsule by mouth two times a week. fluticasone-salmeterol (ADVAIR) 500-50 mcg/dose dsdv Inhale 1 Puff as instructed twice daily. fluticasone (FLOVENT) 220 mcg/actuation inhaler Inhale 1 Puff as instructed once daily as needed. (Patient taking differently: Inhale 1 Puff as instructed twice daily.) CREON 36,000-114,000- 180,000 unit capsule Take 3 capsules by mouth. With every meal sulfamethoxazole-trimethoprim (BACTRIM DS) 800-160 mg per tablet Take 1 tablet by mouth twice dailyfor 14 days. levoFLOXacin (LEVAQUIN) 750 mg tablet Take 1 tablet by mouth once daily for 14 days. Nebulizers 1 Each three times daily. REVIEW OF SYSTEMS See HPI PHYSICAL EXAMINATION: VITAL SIGNS: BP 118/60 Pulse 91 Temp (Src) 97.8 (Temporal) Resp 19 Wt 85 lb 12.8 oz (38.9kg) SpO2 97% Physical Exam Constitutional: General: He is not in acute distress. Not pale or dyphoretic. Minimal cough in room HENT: Head: Normocephalic and atraumatic. Mouth: Mucous membranes are moist. No drainage Eyes: Conjunctiva/sclera: Conjunctivae normal. Pupils: Pupils are equal, round, and reactive to light. Cardiovascular: Rate and Rhythm: Normal rate and regular rhythm. Pulmonary: Comments: No retractions. Few crackles with fair AE, extremely prolonged expiratory phase without wheeze Abdominal: General: Abdomen is flat. Palpations: Abdomen is soft. Musculoskeletal: General: No swelling. Cervical back: Neck supple. No rigidity. Comments: cachectic Skin: General: Skin is warm and dry. Neurological: Mental Status: He is alert and oriented to person, place, and time. Mental status is at baseline. DATA: Diagnostic tests reviewed for today's visit were personally reviewed by me: Sputum culture results and Most recent labs LAST LAB RESULTS: ---Reviewed in [facility] CBC with diff: WBC 10.30 12/03/2022 RBC 3.80 12/03/2022 Hemoglobin 11.9 12/03/2022 Hematocrit 34.0 12/03/2022 MCV 89.5 12/03/2022 MCH 31.3 12/03/2022 MCHC 35.0 12/03/2022 RDW-CV 13.9 12/03/2022 Platelet Count 214 12/03/2022 MPV 9.7 12/03/2022 Neutrophils % 39.5 12/03/2022 Lymph% 35.0 12/03/2022 [place]% 9.5 12/03/2022 Eosin% 16.6 11/26/2022 Baso% 0.7 12/03/2022 Abs Neut (Segs + Bands) 4.08 12/03/2022 Abs [place] 0.98 12/03/2022 Abs Eosin 1.54 12/03/2022 Abs Baso 0.07 12/03/2022 Glucose (mg/dL) Date Value 12/03/2022 195 12/08/2015 113 Potassium Date Value 12/03/2022 4.1 mmol/L 11/26/2022 4.4 Sodium Date Value 12/03/2022 134 mmol/L 12/08/2015 139 mEq/L Chloride Date Value 12/03/2022 96 mmol/L 12/08/2015 102 mEq/L CO2 Date Value 12/03/2022 32 mmol/L 12/08/2015 31 mEq/L Creatinine Date Value 12/03/2022 0.78 mg/dL 11/26/2022 1.16 MG/DL BUN (mg/dL) Date Value 12/03/2022 13 12/08/2015 16 Anion Gap Date Value 12/03/2022 6 mmol/L 12/08/2015 11 Calcium (mg/dL) Date Value 12/08/2015 9.3 Calcium, Total (mg/dL) Date Value 12/03/2022 9.1 Protein, Total (g/dL) Date Value 12/03/2022 7.7 12/08/2015 9.5 Albumin (g/dL) Date Value 12/03/2022 3.1 12/08/2015 3.4 Bilirubin, Total Date Value 12/03/2022 1.4 mg/dL 11/26/2022 0.80 Alkaline Phosphatase Date Value 12/03/2022 992 U/L 11/26/2022 1,147 AST Date Value 12/03/2022 140 U/L 11/26/2022 145 ALT Date Value 12/03/2022 131 U/L 11/26/2022 145 Vitamin D 25 Hydroxy (ng/mL) Date Value 11/06/2022 9.1 ] Hemoglobin A1C (%) Date Value 11/05/2022 8.4 2022 8.6 02/12/2021 8.8 12/08/2015 8.3 Hemoglobin A1c (%) Date Value 05/22/2021 7.4 09/11/2020 6.4 12/30/2019 6.9 Hemoglobin A1C (POCT) (%) Date Value 12/24/2021 7.5 09/10/2021 7.4 05/22/2021 7.4 09/11/2020 6.4 HGBA1C (%) Date Value 07/30/2019 6.5 04/30/2019 6.6 01/25/2019 8.1 09/10/2018 8.2 05/29/2018 10.3 06/25/2016 7.0 SPIROMETRY: Reviewed in [facility] SPIROMETRY BASELINE ONLY ([id number]) - ordered on 12/04/22 ID: [id number] Name: JAY BARBER Race: White Ht: 62.01 in Wt: 89.51 lbs Age: 27 Gender: Male : 1995 Dx: Cystic fibrosis_ Smoking Hx: Non-smoker Doctor: SHE PETE Test Date: 12/04/2022 Site: [facility]: Kaylen Daigle PRE-BRONCH POST-BRONCH Pre LLN Pred ULN %Pred Post %Pred %Chg SPIROMETRY FVC (L) 2.16 3.29 4.08 4.88 52 FEV1 (L) 0.75 2.75 3.44 4.11 21 FEV1/FVC 0.35 0.73 0.85 0.94 40 PEF L/s (L/sec) 3.59 6.73 8.55 10.37 41 FEF50 (L/sec) 0.24 2.03 4.16 6.28 5 FIF50 (L/sec) 2.45 FEF50/FIF50 0.10 90-100 FIVC (L) 2.04 MBT45-26 (L/sec) 0.20 2.34 3.75 5.49 5 Time (sec) 14.92 FET PEF (sec) 0.04 MACIEL (L) 0.02 Vol Extrap % (%) 1 Comments: ATS/ERS acceptability and repeatability standards for spirometry met. //[facility] SPIROMETRY BASELINE ONLY ([id number]) - ordered on 11/20/22 PRE-BRONCH POST-BRONCH Pred LLN ULN Actual %Pred Actual %Chng SPIROMETRY FVC (L) 4.08 3.29 4.88 2.34 57 FEV1 (L) 3.44 2.75 4.11 0.82 23 FEV1/FVC 0.85 0.73 0.94 0.35 41 FEF25 (L/sec) 0.54 FEF50 (L/sec) 4.16 2.03 6.28 0.27 6 FEF75 (L/sec) 1.51 0.80 2.67 0.10 6 IPQ72-49 (L/sec) 3.75 2.34 5.50 0.22 5 PEF L/s (L/sec) 8.55 6.73 10.37 3.81 44 FIVC (L) 2.25 FIF50 (L/sec) 2.88 PIF (L/sec) 3.14 Time (sec) 14.45 MACIEL (L) 0.02 FET PEF (sec) 0.04 SPIROMETRY BASELINE ONLY ([id number]) - ordered on 11/05/22 PRE-BRONCH POST-BRONCH Pred LLN ULN Actual %Pred Actual %Chng SPIROMETRY FVC (L) 4.08 3.29 4.88 1.72 42 FEV1 (L) 3.44 2.75 4.11 0.62 17 FEV1/FVC 0.85 0.73 0.94 0.36 42 FEF25 (L/sec) 0.42 FEF50 (L/sec) 4.16 2.04 6.28 0.22 5 FEF75 (L/sec) 1.51 0.80 2.68 0.10 6 VVT07-08 (L/sec) 3.75 2.34 5.50 0.17 4 PEF L/s (L/sec) 8.55 6.73 10.37 2.68 31 FIVC (L) 1.30 FIF50 (L/sec) 2.06 PIF (L/sec) 2.06 Time (sec) 13.10 MACIEL (L) 0.03 FET PEF (sec) 0.07 MICROBIOLOGY: Reviewed MICROBIOLOGY SNAPSHOT CF Pulmonary Exacerbation (MRSA, B Cepacia complex- vietnamiensis), moderate PO Bactrim DS PO BID, Levofloxacin 750mg daily x 14 days Recheck labs 2x today Continue No SHEPHERD Call if symptoms worsen F/U in [facility] next week with Dr. Kilgore Lung Function ---Baseline FEV1 is 28 % predicted. ---Pre-treatment FEV1 was 17 % predicted. ---FEV1 wasn't done today 20 recent hemoptysis Last was 21 % predicted 12/04/2022 (was 23% 11/20/22) Anti-inflammatory therapy and Airway obstruction ---not on Azithromycin due to prior NTM ---Patient doing acapella twice daily ---Restart dornase every day 2. CF liver disease - generally stable transaminitis - suspect related to IV abx, trikafta already adjusted. Repeat labs today and consider restarting Trikafta 3. Acute kidney injury -repeat labs today 4. CFRD Continue to monitor glucoses - if worsening symptoms RTC: [address] Kilgore at [facility] with spirometry Jean Pierre Kilgore MD Written and verbal health teaching given to patient, patient verbalizes understanding and agrees with treatment plan. Electronically Signed: Dr Kilgore February 26, 2023 documented [facility] Miscellaneous Notes* Telephone Encounter - Daniel Goel - 02/17/2023 11:34 AM EDT Patient called office regarding a follow-up appointment with Dr. Kilgore. Message has been sent to the schedulers to reach out to the patient with Dr. Kilgore first availableappointment. documented in this encounterOhio[facility]02-13-2023 History of Present illness Narrative* She Pete DO - 01/13/2023 11:44 AM EST CF Pre-Clinic Checklist PRE-TRANSPLANT Last CF clinic visit date: 12/04/[address] 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, Trichosporonosis, Aspergillus ---Pancreatic insufficiency - on enzymes with Creon ---CFRD - follows with endocrinology ---CF Liver disease - complicated by portal hypertension, esophageal varices ---Chronic sinusitis ---Anxiety/Depression Exacerbations in the last 12 months: Dates of IV in hospital: 11/05/2022 - 11/11/2022 - CF exacerbation/influenza A 07/26/2022 - 08/21/2022 - CF exacerbation/hemoptysis Dates of IVs at home: 11/11/2022 - 11/17/2022 - stopped due to rising LFTs/Cr (Vanc and Meropenem) FEV1%: 21% FEV1%trend: BMI: 16.35 BMI Trend: RD ANNUAL VISIT Needed: will need for 2022 RT ANNUAL VISIT Needed: will need for 2022 SW ANNUAL VISIT Needed: will need for 2022 Mental health screen: ANNUAL Labs Needed: will need for 2022 - last obtained on 07/2022 Last OGTT/CFRD: CFRD - last saw Dr. Ramirez 12/20/2022 Dexa: needs (last 2019 with -2.9) WNL- every 5 years Abnormal-every 2 years Colonoscopy (age > 35) not of age WNL-every 5 years Abnormal-every 3 or sooner Abdominal Ultra Sound: needs fibroscan this year (last abd US 07/27/2022) (Every 2 years if LFT's normal) Chronic maintenance regimen: CFTR modulators: (stopped during hospitalization, not yet restarted) Trikafta - was on adjusted dosing due to Cirrhosis - reports taking 2 orange pills on even days of the month and 1 orange pill on odd days of the month, No blue pills Pulmozyme: recently restarted Hypertonic saline: has at home but not currently using Chronic Azithromycin (anti-inflammatory): No (on hold due to prior NTM) Inhaled Abx: not currently using - but has received [place] and will restart Ibuprofen: No Referral to Endo: already in place - saw Dr. Ramirez 12/20/2022 Referral to Transplant: Needs but refuses EPIC/Phone Messages since last visit: - insurance authorization for home Ivs Other issues: Plan for visit: - on trikafta? - will need to see entire team for annual visit - will need annual labs (last had around 07/2022) - will need fibroscan at some point this year - will need dexa scan - ?f/up with hepatology? documented in this encounterOhio[facility]02-03-2023 Miscellaneous Notes* Telephone Encounter - Samra Hahna Insurance Spec - 01/03/2023 9:25 AM EST authorization forms faxed to you as requested to [phone] * Telephone Encounter - Samra Hahna Insurance Spec - 01/03/2023 8:11 AM EST Good morning, I received your message to call you regarding the authorizations for this patient. I have tried calling you a couple times, I understand you are with patients. Please call me back at [phone] at your convenience so I can answer any questions you may have. Thanks. * Telephone Encounter - Samra Hahna Insurance Spec - 12/30/2022 12:36 PM EST Patient's [employer] insurance requires a prior authorization for their Copat extensions from 11/23/22-12/05/22 for Meropenem 1.5g q8h and vancomycin 0.75g q12h I have completed the necessary prior authorization form , all that is required is review and signature by prescribing provider. Please advise which method will be the easiest / fastest way for the office to receive and process the prior authorization form. I can either e-mail to a [employer] e-mail address or send via fax. Once completed, simply return the signed form to Samra Lino at fax [phone] or via [facility] e-mail at . Thank you for your prompt attention to this matter. Samra Hillaryenza Insurance Spec documented in this encounterOhiohealth [facility] Hospital01-24-2023 Miscellaneous Notes* Telephone Encounter - Samra Hahna Insurance Spec - 12/24/2022 8:14 AM EST Good morning, I am looking for the status of the signed [facility] authorization form for patients copat extension for VANCOMYCIN 0.75g q12 that you ordered from 11/23/22-12/15/22. I have been in contact with your office multiple times and most recently have been told you have the authorization form however it is not signed yet.I understand that there is another team your advised of however they didnot order the IV Atb for this patient. We will need you or someone in your office to sign the authorization form for the I Vancomycin extension. A signature is required from you or someone in your group so we can obtain the authorization for this patient. If you need the forms again please let me know and I will resend them. Thanks in advance. * Telephone Encounter - Samra Hahna Insurance Spec - 11/26/2022 2:14 PM EST Looks like there is copat extension on the iv atbs vancomycin, meropenem, benadryl. We will need new signatures on authorization forms to request addtitional days of the iv medications. I will fax the forms to you at [phone]. Please sign all 3 forms and fax them back to me at [phone] so I can complete our authorization process. Thanks in advance * Telephone Encounter - Samra Discenza Insurance Spec - 11/12/2022 1:04 PM EST emailed as requested * Telephone Encounter - Samra Disc[employer] Insurance Spec - 11/12/2022 9:56 AM EST Patient's [employer] insurance requires a prior authorization for their Vancomycin 750mg IV every 12 hours ,Meropenem 1.5gm IV every 8 hours ,Benadryl 50mg [id number] I have completed the necessary prior authorization form , all that is required is review and signature by prescribing provider. Please advise which method will be the easiest / fastest way for the office to receive and process the prior authorization form. I can either e-mail to a [employer] e-mail address or send via fax. Once completed, simply return the signed form to Samra Lino at fax [phone] or via [facility] e-mail at [email or web address]. Thank you for your prompt attention to this matter. Samra HahniHELP World Insurance Spec documented in this encounterOhiohealth Mansfield Hospital01-20-2023 Instructions* Patient Instructions* Stephie Ramirez APRN.ARIAS - 12/20/2022 1:31 PM EST Look into omnipod 5 and Tslim control IQ documented in this encounterOhiohealth Mansfield Hospital01-20-2023 History of Present illness Narrative* Stephie Ramirez APRN.CNP - 12/20/2022 12:43 PM EST Subjective Date of encounter: 12/20/2022 Jay Barber (1995), is a 27 year old male who presents for Diabetes management Important Lab History: HBA1C:10/2013: 10.8%, 12/2013: 7.4%, 03/2014: 9.6%, 03/2014: 8.1%, 05/2014: 6.7%, 05/2015: 6.9%, 08/2015: 8.4%, 12/2015: HbA1c 8.3%, 03/2016: 8.9%, 05/2016: 7.0%, 01/2018: 9.6%, 05/2018: 10.3%, 08/2018: 8.2%, 10/2018: 7.9%, 01/2019: 8.1%, 03/2019: 6.6%, 07/2019: 6.5%, 12/2019: 6.9%, 07/2020: 6.6%, 08/2020: 6.4%, 01/2021: HbA1C 8.3%, 03/2021: 8.3%, 05/2021: 7.4%, 08/2021: 7.4%, 12/2021: 7.5%, 07/2022: 8.6%, 10/2022: 8.4%, Thyroid Function Testin10/2013: TSH 2.29 (0.358-3.740), free T4 1.02 (0.76- 1.46), 12/2015: TSH 1.970 (0.358-3.740 uIU/mL), free T4 1.15 (0.76-1.46 ng/dL), 01/2018: TSH 1.735 (0.35-5.5), 12/2018: TSH 1.137 (0.35-5.5), 05/2019: TSH 2.293 (0.35-5.5), 01/2020: TSH 1.754 (0.35-5.5), free T4 1.2 (0.9-1.5), 01/2021: TSH 1.9 (0.27-4.2 uIU/mL), free T4 1.2 (0.9-1.7), 12/2021: TSH 3.41 (0.27-4.2 uIU/mL), free T4 1.1 (0.9-1.7), Renal Function Testin08/2013: creatinine 0.7, 12/2015: creatinine 0.69 mg/dL, eGFR >60,), 05/2018: Creatinine 0.72, 01/2019: Creatinine 0.86, 07/2019: Creatinine 0.73, 07/2020: Creatinine 0.65, 10/2020: Creatinine 0.64, 01/2021: Creatinine 0.81, 03/2021: Creatinine 0.73, 12/2021: Creatinine 0.64, 12/2022: Creatinine 0.78 Urine for Microalbumin:10/2013: Microalbumin:Creatinine ratio ok,12/2015: microalbumin : creatinine ratio ok, 08/2017: Microalbumin:Creatinine Ratio ok, 10/2018: Microalbumin:Creatinine Ratio 535, 01/03/2020: Microalbumin:Creatinine Ratio 650, 01/2021: Microalbumin:Creatinine Ratio 361. Improved but above goal. Jay states he has used lisinopril in the past but this increased his potassium too muchand it was discontinued. He will inquire further with his CF providers about losartan. I advised him to make an appointment with nephrology as we had previously discussed., 03/19/2021: Microalbumin:Creatinine Ratio 1220, 08/2021: still hasn't made appointment with kidney specialist, stressed the impo rtance of this to prevent further kidney damage., 10/2022: prot/creat ratio in epic, making appointment with nephrology Lipid Profile:10/2013: TC 111, HDL 42, LDL 56, TG 56, 12/2015: TC 122, HDL 52, LDL 60, TG 49, 10/2018: TC 160, HDL 72, LDL 71, TG 83, 01/03/2020: TC 253 HDL 133 LDL 112 TG 38, 01/2021: TC 179 HDL 115 LDL54 TG 51, 03/2021: TC 233 HDL 143 LDL 84 TG 32 Liver Profile:08/2013: AST 93, ALT 65, Alkaline Phosphatase 811, 12/2015: AST 110 (9-37 U/L), ALT 164 (12-78 U/L), alkaline phosphatase 807 (46-116 U/L), Bilirubin, total 1.3 (0.2-1.0, mg/dL, 05/2018: results in care everywhere, 12/2019: results in care everywhere, 01/2020: labs in [facility], 07/2020; Alkaline Phosphatase 725 (45-117), ALT 77 (16-61), AST 163 (15-37), 12/2020: results in care everywhere., 03/2021: results In care everywhere, 12/2021: Alkaline Phosphatase 918 (38-113), bone percent 13.9%, liver percent 86.1 , 12/2022: liver function monitored by CF providers Dilated Eye Exam: Patient educated to have ophthalmology visits at least once a year. 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 08/2013: New patient visit for Cystic Fibrosis related Diabetes Previous diabetes related labs from [facility]everywhere systems reviewed prior to today's office visit. Any changes made at our last diabetes management visit were abstracted accordingly (if applicable). Today's Office Visit: Note: last Follow up was 12/2021, reviewed importance of routine, generally every 3 month Follow ups Nephrology: has appointment upcoming, last appointment was in the summer per patient and was virtual Liver: monitored by CF provider(s). Lipids: advised to discuss with CF providers, may not be able to treat with high liver enzymes. self monitoring blood glucose data : see dexcom report. Average 14 day SG 218 61% TIR 2 % low range however target ranges in the device were not 70-180. It was in as 95-245, patient will correct this Dexcom: through [facility] Diet: Very high in carbs per patient due to CF diet to gain weight, especially in evenings. Often eating 90 grams of carbs with a meal now which is less than other visits. States with programmed prandial insulin has been spotty taking it, missing lunch dose especially Exercise: working History of hypoglycemia unawareness,-using dexcom now. Insulin: Carb ratio Breakfast dose: Novolog 1:10 Lunch dose: Novolog 1:10 Supper dose: Novolog 1:10 --states was crashing on this ratio, Is more comfortable with a 1:20 or1:25 ratio, typically taking only 4-5 units with meals now Snack dose: Novolog 1:10 Sliding Scale parameters: Novolog 1:25/150-- admits hasn't been using corrections, was using a 1:50/150 Basal Insulin: (dosed in units) Bedtime dose: Levemir or basaglar 8 Typical Day: varies Always check blood sugar prior to driving. Carry glucose tablets when travelling. I reviewed and updated the below Review of Systems for today's office visit. Review of Systems Constitutional: Negative for weight loss. HENT: Negative for ear pain. Eyes: Negative for pain. Respiratory: Negative for shortness of breath. Cardiovascular: Negative for chest pain. Gastrointestinal: Negative for abdominal pain, blood in stool and melena. Genitourinary: Negative for hematuria. Musculoskeletal: Negative for falls. Neurological: Negative for loss of consciousness. 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) Transfusion history Type 1 diabetes mellitus with hyperglycemia (HCC) PAST SURGICAL HISTORY Procedure Laterality Date PAST SURGICAL HISTORY OF splenal renal shunt to treat portal hypertension FAMILY HISTORY Problem Relation Age of Onset Hypertension Mother Breast Cancer Other other (hypercholesterolemia) Other other (heart disease in female family member before age 65) Other Social History Tobacco Use Smoking status: Never Smokeless tobacco: Never Vaping Use Vaping Use: Never used Substance Use Topics Alcohol use: No Drug use: No Current Meds aztreonam lysine (CAYSTON) 75 mg/mL nebulizer solution Inhale 1 mL as instructed three times daily.28 days on 28 days off Send altera nebulizer with each shipment Nebulizers 1 Each three times daily. dornase christi (PULMOZYME) 1 mg/mL nebulizer solution Inhale 2.5 mL as instructed once daily. cetirizine (ZYRTEC) 5 mg tablet Take 10 mg by mouth once daily. carvedilol (COREG) 6.25 mg tablet Take 1 tablet by mouth twice daily with meals. httmvudrvmu-lcqgdoemvw-gtvvzxwnq (TRIKAFTA) 100-50-75 mg(d) /150 mg (n) tablet Take 2 tablets by mouth every 48 hours. Take 2 orange tablets on even number days. Then take 1 tablet on Odd number days. Discard blue tablets. DO NOT crush, chew, or open. ipratropium-albuterol (DUONEB) 0.5 mg-3 mg(2.5 mg base)/3 mL nebu Inhale 3 mL as instructed twice daily as needed. montelukast (SINGULAIR) 10 mg tablet Take 1 tablet by mouth daily at bedtime. (Patient taking differently: Take 10 mg by mouth every morning.) citalopram hydrobromide (CELEXA) 20 mg tablet Take 1 tablet by mouth once daily. ursodiol (ACTIGALL) 300 mg capsule Take 300 mg by mouth twice daily. Nebulizers 1 Each three times daily. albuterol HFA (PROAIR HFA) 90 mcg/actuation inhaler Inhale 2 Puffs as instructed every 4 hours as needed for wheezing/shortness of breath. VITAMIN D2 1,250 mcg (50,000 unit) capsule Take 1 capsule by mouth two times a week. fluticasone-salmeterol (ADVAIR) 500-50 mcg/dose dsdv Inhale 1 Puff as instructed twice daily. fluticasone (FLOVENT) 220 mcg/actuation inhaler Inhale 1 Puff as instructed once daily as needed. (Patient taking differently: Inhale 1 Puff as instructed twice daily.) CREON 36,000-114,000- 180,000 unit capsule Take 3 capsules by mouth. With every meal insulin lispro (HUMALOG KWIKPEN INSULIN) 100 unit/mL Dose varies units with meals and sliding scale, using about 30 total units a day Insulin Calvin, Disposable, (BD ULTRA-FINE YARON PEN NEEDLE) 32 gauge x 5/32 5x/day glucagon (BAQSIMI) 3 mg/actuation nasal spray Use 1 Calvin in the nose as needed. May repeat after 15 minutes using a new device if there is no response for severe low blood sugar event insulin glargine (BASAGLAR KWIKPEN U-100 INSULIN) 100 unit/mL (3 mL) Inject 8 units subcutaneously at bedtime Objective BP 142/80 Ht 157.5 cm (5' 2 ) Wt 40.6 kg (89 lb 6.4 oz) BMI 16.35 kg/m Physical Exam Constitutional: General: He is not in acute distress. Appearance: He is not toxic-appearing. HENT: Head: Normocephalic and atraumatic. Eyes: General: No scleral icterus. Conjunctiva/sclera: Conjunctivae normal. Cardiovascular: Rate and Rhythm: Normal rate and regular rhythm. Pulmonary: Effort: Pulmonary effort is normal. No respiratory distress. Breath sounds: Normal breath sounds. No wheezing or rales. Skin: General: Skin is warm. Neurological: Mental Status: He is alert. Psychiatric: Mood and Affect: Mood and affect normal. Mood is not anxious. Judgment: Judgment normal. ASSESSMENT/PLAN: 1. Type 1 diabetes mellitus with hyperglycemia (HCC) - ICD9: 250.01, ICD10: E10.65 - TSH BLD - INSULIN LISPRO (U-100) 100 UNIT/ML SUBCUTANEOUS PEN - PEN NEEDLE, DIABETIC 32 GAUGE X - BAQSIMI 3 MG/ACTUATION NASAL SPRAY - INSULIN GLARGINE (U-100) 100 UNIT/ML (3 ML) SUBCUTANEOUS PEN - GLUCOSE MONITOR, 72 HOUR, PHYS INTERP Plan of Care: 1. Look into omnipod 5 and/or tslim control IQ as discussed. Patient already on dexcom cgm. I suspect patient would significantly benefit from closed loop insulin pump technology. Currently, occasionally missing doses with meals, especially when out or at work which affects glycemia significantly, with a pump, he will have access to his insulin and treating his blood sugar at all times. 2. Can continue current diabetes medications and dosages for now. Notify me in between visits if glycemia is trending above/below goals. 3. Total time for today's office visit was greater than 30 minutes. Greater than 50% of the time was spent in counseling and/or coordination of care. 4. Self monitoring blood glucose log sheet(s) were given to the patient. Instructed to fill out sheets and bring log to next visit. 5. Answered all questions. 6. Patient verbalized understanding of all the above instructions. 7. Discussed therapeutic lifestyle changes. Stephie Ramirez APRN.ACQUISITION ANALYST documented in this encounterOhio[facility]01-20-2023 History of Present illness Narrative* Stephie Ramirez APRN.ACQUISITION ANALYST - 12/20/2022 12:35 PM EST Subjective Important Lab History: HBA1C:10/2013: 10.8%, 12/2013: 7.4%, 03/2014: 9.6%, 03/2014: 8.1%, 05/2014: 6.7%, 05/2015: 6.9%, 08/2015: 8.4%, 12/2015: HbA1c 8.3%, 03/2016: 8.9%, 05/2016: 7.0%, 01/2018: 9.6%, 05/2018: 10.3%, 08/2018: 8.2%, 10/2018: 7.9%, 01/2019: 8.1%, 03/2019: 6.6%, 07/2019: 6.5%, 12/2019: 6.9%, 07/2020: 6.6%, 08/2020: 6.4%, 01/2021: HbA1C 8.3%, 03/2021: 8.3%, 05/2021: 7.4%, 08/2021: 7.4%, 12/2021: 7.5%, 07/2022: 8.6%, 10/2022: 8.4%, Thyroid Function Testin10/2013: TSH 2.29 (0.358-3.740), free T4 1.02 (0.76- 1.46), 12/2015: TSH 1.970 (0.358-3.740 uIU/mL), free T4 1.15 (0.76-1.46 ng/dL), 01/2018: TSH 1.735 (0.35-5.5), 12/2018: TSH 1.137 (0.35-5.5), 05/2019: TSH 2.293 (0.35-5.5), 01/2020: TSH 1.754 (0.35-5.5), free T4 1.2 (0.9-1.5), 01/2021: TSH 1.9 (0.27-4.2 uIU/mL), free T4 1.2 (0.9-1.7), 12/2021: TSH 3.41 (0.27-4.2 uIU/mL), free T4 1.1 (0.9-1.7), Renal Function Testin08/2013: creatinine 0.7, 12/2015: creatinine 0.69 mg/dL, eGFR >60,), 05/2018: Creatinine 0.72, 01/2019: Creatinine 0.86, 07/2019: Creatinine 0.73, 07/2020: Creatinine 0.65, 10/2020: Creatinine 0.64, 01/2021: Creatinine 0.81, 03/2021: Creatinine 0.73, 12/2021: Creatinine 0.64, 12/2022: Creatinine 0.78 Urine for Microalbumin:10/2013: Microalbumin:Creatinine ratio ok,12/2015: microalbumin : creatinine ratio ok, 08/2017: Microalbumin:Creatinine Ratio ok, 10/2018: Microalbumin:Creatinine Ratio 535, 01/03/2020: Microalbumin:Creatinine Ratio 650, 01/2021: Microalbumin:Creatinine Ratio 361. Improved but above goal. Jay states he has used lisinopril in the past but this increased his potassium too muchand it was discontinued. He will inquire further with his CF providers about losartan. I advised him to make an appointment with nephrology as we had previously discussed., 03/19/2021: Microalbumin:Creatinine Ratio 1220, 08/2021: still hasn't made appointment with kidney specialist, stressed the impo rtance of this to prevent further kidney damage., 10/2022: prot/creat ratio in epic, making appointment with nephrology Lipid Profile:10/2013: TC 111, HDL 42, LDL 56, TG 56, 12/2015: TC 122, HDL 52, LDL 60, TG 49, 10/2018: TC 160, HDL 72, LDL 71, TG 83, 01/03/2020: TC 253 HDL 133 LDL 112 TG 38, 01/2021: TC 179 HDL 115 LDL54 TG 51, 03/2021: TC 233 HDL 143 LDL 84 TG 32 Liver Profile:08/2013: AST 93, ALT 65, Alkaline Phosphatase 811, 12/2015: AST 110 (9-37 U/L), ALT 164 (12-78 U/L), alkaline phosphatase 807 (46-116 U/L), Bilirubin, total 1.3 (0.2-1.0, mg/dL, 05/2018: results in care everywhere, 12/2019: results in care everywhere, 01/2020: labs in [facility], 07/2020; Alkaline Phosphatase 725 (45-117), ALT 77 (16-61), AST 163 (15-37), 12/2020: results in care everywhere., 03/2021: results In care everywhere, 12/2021: Alkaline Phosphatase 918 (38-113), bone percent 13.9%, liver percent 86.1 , 12/2022: liver function monitored by CF providers Dilated Eye Exam: Patient educated to have ophthalmology visits at least once a year. 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 08/2013: New patient visit for Cystic Fibrosis related Diabetes Previous diabetes related labs from [facility] systems reviewed prior to today's office visit. Any changes made at our last diabetes management visit were abstracted accordingly (if applicable). Today's Office Visit: Note: last Follow up was 12/2021, reviewed importance of routine, generally every 3 month Follow ups self monitoring blood glucose data : see dexcom report. Dexcom: through [facility] Diet: Very high in carbs per patient due to CF diet to gain weight, especially in evenings. Often eating 100-150 grams of carbs with a meal. Please take your programmed prandial insulin. Patient comfortable with current regimen. Exercise: occasional History of hypoglycemia unawareness,-using dexcom now. Insulin: Carb ratio Breakfast dose: Novolog 1:10 Lunch dose: Novolog 1:10 Supper dose: Novolog 1:10 (used 1:15 while at work, was having lows post meal on 1:10) Snack dose: Novolog 1:10 Sliding Scale parameters: Novolog 1:25/150 Basal Insulin: (dosed in units) Bedtime dose: Levemir or basaglar 8 Typical Day: varies Always check blood sugar prior to driving. Carry glucose tablets when travelling. I reviewed and updated the below Review of Systems for today's office visit. 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) Liver disease care home (current) use of insulin (HCC) Transfusion history Type 1 diabetes mellitus with hyperglycemia (HCC) PAST SURGICAL HISTORY Procedure Laterality Date PAST SURGICAL HISTORY OF splenal renal shunt to treat portal hypertension FAMILY HISTORY Problem Relation Age of Onset Hypertension Mother Breast Cancer Other other (hypercholesterolemia) Other other (heart disease in female family member before age 65) Other Social History Tobacco Use Smoking status: Never Smokeless tobacco: Never Vaping Use Vaping Use: Never used Substance Use Topics Alcohol use: No Drug use: No Current Meds aztreonam lysine (CAYSTON) 75 mg/mL nebulizer solution Inhale 1 mL as instructed three times daily.28 days on 28 days off Send altera nebulizer with each shipment Nebulizers 1 Each three times daily. dornase christi (PULMOZYME) 1 mg/mL nebulizer solution Inhale 2.5 mL as instructed once daily. cetirizine (ZYRTEC) 5 mg tablet Take 10 mg by mouth once daily. insulin detemir (LEVEMIR FLEXPEN SUBCUTANEOUS) Inject 8 Units subcutaneously daily at bedtime. carvedilol (COREG) 6.25 mg tablet Take 1 tablet by mouth twice daily with meals. szowyewkwrx-wryfgyspdf-tsgpcexjh (TRIKAFTA) 100-50-75 mg(d) /150 mg (n) tablet Take 2 tablets by mouth every 48 hours. Take 2 orange tablets on even number days. Then take 1 tablet on Odd number days. Discard blue tablets. DO NOT crush, chew, or open. ipratropium-albuterol (DUONEB) 0.5 mg-3 mg(2.5 mg base)/3 mL nebu Inhale 3 mL as instructed twice daily as needed. montelukast (SINGULAIR) 10 mg tablet Take 1 tablet by mouth daily at bedtime. (Patient taking differently: Take 10 mg by mouth every morning.) citalopram hydrobromide (CELEXA) 20 mg tablet Take 1 tablet by mouth once daily. ursodiol (ACTIGALL) 300 mg capsule Take 300 mg by mouth twice daily. Nebulizers 1 Each three times daily. albuterol HFA (PROAIR HFA) 90 mcg/actuation inhaler Inhale 2 Puffs as instructed every 4 hours as needed for wheezing/shortness of breath. VITAMIN D2 1,250 mcg (50,000 unit) capsule Take 1 capsule by mouth two times a week. fluticasone-salmeterol (ADVAIR) 500-50 mcg/dose dsdv Inhale 1 Puff as instructed twice daily. fluticasone (FLOVENT) 220 mcg/actuation inhaler Inhale 1 Puff as instructed once daily as needed. (Patient taking differently: Inhale 1 Puff as instructed twice daily.) insulin lispro (HUMALOG KWIKPEN INSULIN) 100 unit/mL Dose varies units with meals and sliding scale, using about 40 total units a day Insulin Calvin, Disposable, (BD ULTRA-FINE YARON PEN NEEDLE) 32 gauge x 5/32 5x/day glucagon (GLUCAGON EMERGENCY KIT, HUMAN,) 1 mg injection use as directed if needed for SIGNIFICANT LOW BLOOD SUGAR EVENT CREON 36,000-114,000- 180,000 unit capsule Take 3 capsules by mouth. With every meal Objective There were no vitals taken for this visit. Physical Exam documented in this encounterOhiohealth [facility]01-18-2023 Miscellaneous Notes* Telephone Encounter - Nlel Lozano - 12/18/2022 10:06 AM EST Medication: Trikafta Date Submitted: December 13, 2022 Prescribing Provider: Yanci Method of Submission: covermymeds Outcome: Approved 12/13/2022-12/12/2023 Outcome Date: December 14, 2022 Nell Oswalds documented in this encounterOhiohealth Mansfield Hospital01-06-2023 Miscellaneous Notes* Telephone Encounter - Corey Del Real - 12/06/2022 8:49 AM EST I called and spoke with Jay. The following appointment has been made for this patient: Date: 01/13/2023 Status: Scheduled Arrive By: 3:30 PM Time: 3:40 PM Length: 40 Visit Type: EST KIDNEY MED [[id number]] Copay: $0.00 Provider: Sanna Bowers APRN.CNP Department: KIDNEY MED [facility] Provider Title: Dept Ordering Physician: Department Address: [address] [facility] [address] Corey Del Real ----- Message from Karlene Ahuja DO sent at 12/04/2022 2:33 PM EST ----- Any ----- Message ----- From: Corey Del Real Sent: 12/04/2022 2:20 PM EST To: Karlene Ahuja DO With you or Sanna/Cindy? ----- Message ----- From: Karlene Ahuja DO Sent: 12/04/2022 2:08 PM EST To: [facility] Nurses Pool No otto on this Patient I had seen as a VV over 1 year ago had lab work with increased proteinuria Please call him to offer him a follow up with nephrology Sadiq Soler [facility] Instructions* Patient Instructions* Jean Pierre Kilgore MD - 12/04/2022 5:09 PM EST Get labs tomorrow as ordered. Stop the IV fluids at night We'll get orders to [facility] to pull your PICC tomorrow Stop the minocycline Start the Cayston once you receive it Let us know if you worsen Follow up with me in 3 weeks documented in this [facility] History of Present illness Narrative* Jean Pierre Kilgore MD - 12/04/2022 4:22 PM EST Images from the original note were not included. 12 PULMONARY MEDICINE CYSTIC FIBROSIS FOLLOW UP Patient Name: Jay Barber PRIMARY CARE PHYSICIAN: No primary care provider on file. Portions of this note were taken from the notes dated 11/20/2022 and 11/27/2022. Jay Barber is a 27 year old male seen for cystic fibrosis home IV follow-up. He was direct admitted to the hospital for CF exacerbation requiring IV abx after being seen in [place] 11/05/22 with CFPEx(MRSA and B Cepacia) and influenza A requiring tamiflu. Was discharged on 11/11/22 with IV Vanc andIV Meropenem. Had PICC line placement on 11/07/2022. He was seen in [place] 11/20, where labs were increased to 2xweek, IVFs were started at night, and IV antibiotics were continued because of increased LFTs and creatinine. A FU virtual visit 11/27 with further increases in LFTs and creatinine resultedin stopping the IV antibiotics, continuation of IVFs at night, and oral minocycline and prednisone. He has remained tight and mildly fatigued, with cough, sputum, bowel movements and appetite unchanged. Blood glucose became >200 with the steroids, but returned to the 130's today 92 days after finishing steroids). He feels better that on admission, but not yet back to baseline and generally unchanged over the last 10 days. On room air, going to work, with O2Sats >95%. Airway clearance consists of albuterol 3x daily, acapella twice daily, advair twice daily . He just received Cayston. No nausea or vomiting, stools back to baseline. Appetite is better, reports back to his baseline. Weight up from 39.3 to 40.6kg. Labs yesterday showed mild increase in bili (1.2-1.4), but improvement in LFTs, alk phos and creatinine. Eosinophils were further up. 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 Stop the IV fluids at night We'll get orders to [facility] to pull your PICC tomorrow Stop the minocycline Start the Cayston once you receive it Let us know if you worsen Follow up with me in 3 weeks 1. CYSTIC FIBROSIS PULMONARY DISEASE AND BRONCHIECTASIS Symptoms stable FEV1% predicted today: 21% Complicated by chronic respiratory tract infection with PsA, Burkholderia vietnamiensis (sent to [facility] in 2019), MRSA Chronic maintenance regimen: CFTR modulators: (stopped during hospitalization, not yet restarted) Trikafta - was on adjusted dosing due to Cirrhosis - reports taking 2 orange pills on even days of the month and 1 orange pill on odd days of the month, No blue pills - will f/up LFTs tomorrow Pulmozyme: recently restarted Hypertonic saline: has at home but not currently using Chronic Azithromycin (anti-inflammatory): No (on hold due to prior NTM) Inhaled Abx: not currently using - but has received Cayston and will restart Ibuprofen: No Nebulized short-acting bronchodilator: albuterol as needed Nebulized other: PEP device: has acapella VEST: not currently using ICS: Advair 500/50mg 2 puffs BID Oral prednisone: as needed Pulm rehab: not currently using Supplemental oxygen use: no Exercise and minutes per week: brisk walking/ lifting, 2 hrs per week Recommended ORDER OF AIRWAY CLEARANCE: Albuterol, Hypertonic, VEST (with hypertonic), pulmozyme, Inhaled antibiotics, Inhaled corticosteroids ADVANCED LUNG DISEASE (criteria: FEV1 < 40) and CHRONIC HYPOXEMIC RESPIRATORY FAILURE ---Supplemental oxygen: no ---BIPAP: no ---Pulmonary rehab: no ---ECHO: will need to repeat ---Weight: BMI of 16.37 (12/04/2021) ---Discussed lung transplantation: yes, today - not currently interested. ---Referred for lung transplantation: not at this time per patient preference CHRONIC RESPIRATORY TRACT PSEUDOMONAS AND BURKHOLDERIA ---Mucoid phenotype ---Inhaled antibiotic: previously used cayston montly alternating with MUKESH podhaler - not currently doing, but starting Cayston tomorrow. Does have the altera device ---Not on chronic azithromycin due to NTM ---Oral antibiotic that patient responds to: Cipro and Bactrim ---IV abx that patient responds to: IV TOBRAMYCIN, meropenem, vancomycin CYSTIC FIBROSIS PANCREATIC INSUFFICIENCY ---No generic enzymes, ever. ---Creon 36,000, 3-4 BEFORE meals AND 2-3 BEFORE snacks ---Fat soluble supplemental vitamins: Vitamin K 40 mcg daily ---CF Vitamins: MVI 2 daily ---Vitamin D2 50,000 weekly Vitamin D 25 Hydroxy (ng/mL) Date Value 07/27/2022 16.0 CYSTIC FIBROSIS LIVER DISEASE --- cirrhosis complicated by esophageal varices, portal hypertension --- Actigall restarted during last hospitalization - --- last RUQ US in 07/27/2022 - cirrhotic liver morphology. No focal hepatic lesions, fatty replacement of the pancreas compatible with underlying cystic fibrosis, mild splenomegaly --- last EGD - 07/30/2022 - small (<5mm) varices were found in the lower third of the esophagus. The entire examined stomach was normal. The examined duodenum was normal. --- last saw hepatology on 07/30/2022 while inpatient - requested hepatology outpatient follow-up --- on mephyton 5mg MWF CHRONIC PANSINUSITIS Sinuses can be a reservoir of bacterial infection and contribute to recurrent lower respiratory tract infections, especially in patients infected with Pseudomonas Symptoms are worse Nasal polyps - unknown? ---Antihistamine: zyrtec ---Nasal steroid: flonase ---Montelukast: added but discussed possible changes with mood ---If not improving with restart sinus medications - will obtain CT sinus and referral to ENT - would like to hold off on this for now given most likely related to change in weather ---Referral to ENT for surgical eval. Appt [phone]. CYSTIC FIBROSIS RELATED DIABETES ---The standard medical therapy for CFRD is subcutaneous insulin (oral diabetic agents should not be used); ---Patient currently on insulin therapy. ---Self monitored blood glucose 3 times per day ---Most recent hgA1c noted. ---Following with Dr. Francis Ramirez at [facility] Severe protein calorie malnutrition - continue ensures - will have fernando follow-up with him Prior Invasive Pulmonary Aspergillus infection/Trichosporonosis - treated with voriconazole by ID cosmetic consultant Dr. Burke France in 2019 for 1 year Depression/Anxiety ---continues on celexa 20 mg PO daily - refilled l101/21/2022 and restarted ---will see if SW is able to see him in the next week or so HTN ---amlodipine 10 mg PO daily (had hyperkalemia with SEVERINO-I) Proteinuria --- previously seen by Dr. Ahuja in nephrology Hemoglobin A1C (%) Date Value 2022 8.6 02/12/2021 8.8 12/08/2015 8.3 Hemoglobin A1c (%) Date Value 05/22/2021 7.4 09/11/2020 6.4 12/30/2019 6.9 Hemoglobin A1C (POCT) (%) Date Value 12/24/2021 7.5 09/10/2021 7.4 05/22/2021 7.4 09/11/2020 6.4 HGBA1C (%) Date Value 07/30/2019 6.5 04/30/2019 6.6 01/25/2019 8.1 09/10/2018 8.2 05/29/2018 10.3 06/25/2016 7.0 ANNUAL SCREENING: Annual labs: completed 2021 OGTT: not needed due to CFRD DEXA: needs Colonoscopy: Start screening at age 35-40 years in CF due to increased risk of GI carcinoma: not ofage as of yet Prior exacerbation treatments per [facility] Procedures & IV/Oral Course: -12/15/95-12/23/95 Hospitalized d/t CF, Influ A, DM- IV ABX, BS monitoring -02/24/96-03/01/96 Hospitalized d/t CF exacerbation and DM- IV Cefuroxime -03/01/96 Home Treatment - CF exacerbation - IV Cefuroxime --- -06/15/97-06/21/97 Hospitalized - CF exac.-IV Tobra and Timentin -06/21/97 Home Treatment -CF exacerbation IV Tobra and Timentin --- -08/07/99-08/10/99 Hospitalized - BS out of control - Insulin started, IV Zosyn and Tobra -08/10/99 Home Treatment -CF exacerbation IV Zosyn and Tobra --- -03/19/00-03/22/00 Hospitalized - CF exacerbation - IV Zosyn and Tobra - 03/22/00 Home Treatment -CF exacerbation IV Zosyn and Tobra -04/14/00-04/17/00 Hospitalized - viral illness, fever - PFTs, labs, airosols, PD -08/10/00-08/20/00 Hospitalized - FUO - CT Chest and Gallium Scan (bronchiectasis RUL and LLL --- -02/18/01 OPS- Colonoscopy and biopsy, r/o fibrosing colonopathy --- -03/10/02-03/14/02 Hospitalized -CF exacerbation - IV Tobra and Meropenem -03/14/02-03/24/02 Home Treatment - CF exacerbationIV Tobra and Meropenem --- -06/15/03-06/16/03 Hospitalized - CF exacerbation, chronic bronchitis, D.M. - IV Tobra and Meropenen -06/16/03-06/29/03 Home Treatment -CF exacerbation IV Tobra and Meropenem --- -12/07/2003 Home Treatment - Zyvox x14 days -01/09/2004 Home Treatment - CF exacerbation IV Cefoxitin and po Biaxin treatment atypical mycobacteria -02/08/2004-02/22/2004 Hospitalized - CF exacerbation - IV course of Vancomycin, Tobramycin, and Meropenem x14 days total -09/25/2004 Home Treatment - Cipro x21 days -10/18/2004- 10/24/2004 Hospitalized - CF exacerbation - IV course of Meropenem and Tobramycin and Bactrim po x14 days total -11/21/2004 Home Treatment - Cipro and Duricef x14 days --- -12/26/2004 Home Treatment - Cipro and Duricef x14 days -02/11/2005 Home Treatment - Cipro x14 days -02/27/2005 Home Treatment - po Cipro x7 more days and Prednisone x5 days --- -08/05/2006 Home Treatment - po Bactrim x14 days -09/24/2006 Home Treatment - po Zyvox x14 days -10/11/2006 to 10/17/2006 Hospitalized - CF exacerbation - IV course of Tobramycin, IV Timentin, and IV Zyvox later changed to IV Vancomycin because of pancytopenia- completed three weeks at home -11/26/2006 Home Treatment - po Cipro and po Zyvox x21 days --- -02/10/2007 Home Treatment - po Cipro and po Bactrim x14 days -04/03/2007 to 04/08/2007 Hospitalized - CF exacerbation with first hemoptysis- IV course of Tobramycin, IV Ceftazidime and IV Zyvox continued at home until 04/17/2007- short of three weeks because of thrombocytopenia -04/22/[address] Trejo- low platelets and low white count most likely from cobination of hypersplenism, illness and antibiotics -05/04/[address] 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 --- -06/27/08 - 07/01/08 Hospitalized - CF exacerbation - IV course of Meropenem, Tobramycin and Linezolid. IVs continued at home for total 3 wks. -10/26/08 Home Treatment - PO Cipro and Bactrim DS x 21 days -11/21/08 - 11/28/08 Hospitalized -CF exacerbation - IV course of Timentin, Vancomycin and Tobramycin. IVs continued at home for total 3 wks --- -01/25/09 Home Treatment - PO Zyvox x 10 days -02/01/09 Home Treatment - PO Bactrim DS x 7 days due to rash possibly due to Zyvox (was on for 6 days) -08/23/2009 Hospital/Home CF exacerbation, IV Meropenem, Tobramycin, Vancomycin X 3 weeks --- -04/11/2010 Home treatment Zyvox po X 14 days -04/29/2010-05/02/2010 Hospital: GI bleed secondary to esophageal varices -05/24/2010 OPS: Upper endoscopy with banding of esophageal varices -06/26/2010 Hospital/Home IV -CF exacerbation - 2 weeks Meropenem, Tobramycin, Vancomycin -09/09/2010 Hospital/Home IV CF exacerbation- X 24 days (Pulm. exacerbation with hemoptysis) Meropenem, tobramycin, Vancomycin -10/29/2010 Home treatment Zyvox po X 2 weeks -11/13/2010 Hospital/surgery at [place]: Splenorenal shunt --- -03/13/2011 Home treatment Bactrim po X 21 days -09/18/11 - cipro and rifampin x 14 days -10/23/11 - restart cipro and rifampin x 14 days -11/15/11 - CF exacerbation - Admit for IV start; Meropenem, tobramycin, vancomycin until 12/18/11 --- -02/19/2012 Cipro and Bactrim x14 days -09/03/12 - cipro and bactrim x 14 days --- -12/09/2012- bactrim and cipro x 14 days -01/15/13 admit Hospitalized - CF Exacerbation: IV larisa, tobra cont at home, finish PO zyvox -01/30/13 - Hospitalized - CF Exacerbation: IV larisa, tobra, vanco contd at home, also PO itraconazole & bactrim -06/21/13- 06/25/13 Hospitalized - CF Exacerbation: IV vanc & ceftaz. cont'd at home -07/23/13 diflucan x 1 tab -08/25/13- cipro and bactrim x 14 days over phone -09/03/2013- 10/06/13 -: home IV Zyvox, IV Vancomycin, po Bactrim --- - 12/08/2013 Zyvox x21 days - 03/16/14 Cipro and bactrim over phone - 04/11/14 Admit - CF Exacerbation and home on IV Meropenem and IV Vancomycin until 04/27/14 - 06/29/14- 07/04/14 for hemoptysis. Was started on IV antibiotics which were d/c'd due to low WBC - 07/27/14 Cipro & Bactrim x14 days - 08/22/14 Cipro & Bactrim - 08/26/14 Admit 23 hours- CF Exacerbation Home on IV Meropenem, IV Vancomycin and IV Tobramycin - 10/28/14 Cipro & Bactrim x14 days - 11/14/14-11/15/2014 Admit CF Exacerbation Home on IV Meropenem, IV Vancomycin, and IV Tobramycin - 11/22/[address] --- IV continued until 12/07/2014 - 02/10/15 Home IVs CF Exacerbation IV Meropenem, IV Vancomycin, and IV Tobramycin - 08/23/2015 Home IVs CF Exacerbation IV Meropenem, IV Vancomycin, and IV Tobramycin ---- - 09/02/16 - Home IV's Larisa/tobra/vanco - 09/16/16 - Po prednisone added x5 days in addition to IV's --- - 07/14/17 - PO Cipro/Bactim - 08/27/17 - Home IV- Vanco/Larisa/Tobra - 01/19/18 - PO Cipro/Bactrim - 02/09/18 - PO Cipro/Zyvox - 02/23/18 - Home IV Larisa/Tobra/Vanco - 05/27/18 - Home IV Vanco/Tobra/Meropenem - 09/14/18 - PO Doxy - 10/19/18 - PO Cipro/Bactrim ----- - 12/28/18 - Home IV Larisa/Vanco/Tobra ------ - 03/19/21- PO Levaquin/Minocycline Immunization History Administered Date(s) Administered COVID-19 original vaccine, age 12+ yr, monovalent ([employer] - PURPLE TOP) 12/24/2020 01/21/2021 12/05/2021 DTP 1993 01/11/1994 05/20/1994 02/13/1995 07/16/1995 07/18/1999 HIB PRP-T Conjugated -4 Dose Series 07/16/1995 Hepatitis B Peds/Adol [birth year] 05/20/1994 Hib - 4 Dose Schedule 1995 01/11/1994 05/20/1994 02/13/1995 IPV 1993 01/11/1994 05/20/1994 02/13/1995 Influenza 10/23/2011 09/13/2013 11/05/2018 Influenza Seasonal Inj Quad Age 6 Mo-64 Yrs Pres Free 09/02/2016 10/11/2019 Influenza Seasonal Inj Quadrivalent 11/05/2018 Influenza Vaccine, Whole 10/03/2010 Meningococcal Conj IM Unspec 05/27/2012 Meningococcal Conjugate MCV4P Vaccine, IM 05/27/2012 Novel Influenza H1N1, preservative free 10/19/2009 Pneumococcal Vac Conjugate(#7 thru MARCH 2010 then #13 thereafter) 01/08/2006 Pneumococcal-13 Vac Conjugate 05/26/2019 Pneumovax 10/23/2011 07/28/2019 Tdap (Age 7+) 05/29/2012 measles mumps rubella (MMR) vaccine (M-M-R II, PRIORIX) 02/13/1995 06/13/1999 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) Transfusion history Type 1 diabetes mellitus with hyperglycemia (HCC) PAST SURGICAL HISTORY Procedure Laterality Date PAST SURGICAL HISTORY OF splenal renal shunt to treat portal hypertension FAMILY HISTORY Problem Relation Age of Onset Hypertension Mother Breast Cancer Other other (hypercholesterolemia) Other other (heart disease in female family member before age 65) Other Social History Tobacco Use Smoking status: Never Smokeless tobacco: Never Vaping Use Vaping Use: Never used Substance Use Topics Alcohol use: No Drug use: No ALLERGIES: ALLERGIES Allergen Reactions Vancomycin Itching, Rash Gets Red Man syndrome and pt if not premedicated with benadryl prior to Vancomycin infusions. Cefoxitin Rash, Other: See Comments Severe abdominal pain, diarrhea, rash Severe Abdominal Pains CURRENT OUTPATIENT MEDICATIONS: minocycline (MINOCIN, DYNACIN) 100 mg capsule Take 1 capsule by mouth twice daily for 14 days. Nebulizers 1 Each three times daily. dornase christi (PULMOZYME) 1 mg/mL nebulizer solution Inhale 2.5 mL as instructed once daily. 0.9 % sodium chloride (NACL 0.9%) iv infusion Inject 125 mL intravenously daily at bedtime for 10 days. diphenhydrAMINE (BENADRYL) 50 mg/mL injection Inject 50 mg intravenously every 12 hours for 15 days. Prior to IV vancomycin dosing cetirizine (ZYRTEC) 5 mg tablet Take 10 mg by mouth once daily. insulin detemir (LEVEMIR FLEXPEN SUBCUTANEOUS) Inject 8 Units subcutaneously daily at bedtime. carvedilol (COREG) 6.25 mg tablet Take 1 tablet by mouth twice daily with meals. edrwavkypxm-rqaamxzimc-oadcneeju (TRIKAFTA) 100-50-75 mg(d) /150 mg (n) tablet Take 2 tablets by mouth every 48 hours. Take 2 orange tablets on even number days. Then take 1 tablet on Odd number days. Discard blue tablets. DO NOT crush, chew, or open. ipratropium-albuterol (DUONEB) 0.5 mg-3 mg(2.5 mg base)/3 mL nebu Inhale 3 mL as instructed twice daily as needed. montelukast (SINGULAIR) 10 mg tablet Take 1 tablet by mouth daily at bedtime. (Patient taking differently: Take 10 mg by mouth every morning.) citalopram hydrobromide (CELEXA) 20 mg tablet Take 1 tablet by mouth once daily. ursodiol (ACTIGALL) 300 mg capsule Take 300 mg by mouth twice daily. Nebulizers 1 Each three times daily. albuterol HFA (PROAIR HFA) 90 mcg/actuation inhaler Inhale 2 Puffs as instructed every 4 hours as needed for wheezing/shortness of breath. VITAMIN D2 1,250 mcg (50,000 unit) capsule Take 1 capsule by mouth two times a week. fluticasone-salmeterol (ADVAIR) 500-50 mcg/dose dsdv Inhale 1 Puff as instructed twice daily. fluticasone (FLOVENT) 220 mcg/actuation inhaler Inhale 1 Puff as instructed once daily as needed. (Patient taking differently: Inhale 1 Puff as instructed twice daily.) insulin lispro (HUMALOG KWIKPEN INSULIN) 100 unit/mL Dose varies units with meals and sliding scale, using about 40 total units a day Insulin Calvin, Disposable, (BD ULTRA-FINE YARON PEN NEEDLE) 32 gauge x 5/32 5x/day glucagon (GLUCAGON EMERGENCY KIT, HUMAN,) 1 mg injection use as directed if needed for SIGNIFICANT LOW BLOOD SUGAR EVENT CREON 36,000-114,000- 180,000 unit capsule Take 3 capsules by mouth. With every meal aztreonam lysine (CAYSTON) 75 mg/mL nebulizer solution Inhale 1 mL as instructed three times daily.28 days on 28 days off Send altera nebulizer with each shipment REVIEW OF SYSTEMS See HPI Chest tightness, cough but with generally scant sputum PHYSICAL EXAMINATION: VITAL SIGNS: BP 140/90 Pulse 100 Temp (Src) 99.4 (Temporal) Resp 19 Ht 5' 2.012 (1.58m) Wt 89 lb 8.5 oz (40.6kg) SpO2 96% BMI 16.37 kg/(m^2). Physical Exam Constitutional: General: He is not in acute distress. HENT: Head: Normocephalic and atraumatic. Mouth/Throat: Mouth: Mucous membranes are moist. Eyes: Conjunctiva/sclera: Conjunctivae normal. Pupils: Pupils are equal, round, and reactive to light. Cardiovascular: Rate and Rhythm: Normal rate and regular rhythm. Pulmonary: Comments: No retractions. Diffuse crackles with fair AE, extremely prolonged expiratory phase without wheeze Abdominal: General: Abdomen is flat. Palpations: Abdomen is soft. Musculoskeletal: General: No swelling. Cervical back: Neck supple. No rigidity. Comments: cachectic Skin: General: Skin is warm and dry. Neurological: Mental Status: He is alert and oriented to person, place, and time. Mental status is at baseline. DATA: Diagnostic tests reviewed for today's visit were personally reviewed by me: Sputum culture results and Most recent labs Most recent imaging LAST LAB RESULTS: ---Reviewed in [facility] CBC with diff: WBC 10.30 12/03/2022 RBC 3.80 12/03/2022 Hemoglobin 11.9 12/03/2022 Hematocrit 34.0 12/03/2022 MCV 89.5 12/03/2022 MCH 31.3 12/03/2022 MCHC 35.0 12/03/2022 RDW-CV 13.9 12/03/2022 Platelet Count 214 12/03/2022 MPV 9.7 12/03/2022 Neut% 39.5 12/03/2022 Lymph% 35.0 12/03/2022 [place]% 9.5 12/03/2022 Eosin% 16.6 11/26/2022 Baso% 0.7 12/03/2022 Abs Neut (Segs + Bands) 4.08 12/03/2022 Abs [place] 0.98 12/03/2022 Abs Eosin 1.54 12/03/2022 Abs Baso 0.07 12/03/2022 Glucose (mg/dL) Date Value 12/03/2022 195 12/08/2015 113 Potassium Date Value 12/03/2022 4.1 mmol/L 11/26/2022 4.4 Sodium Date Value 12/03/2022 134 mmol/L 12/08/2015 139 mEq/L Chloride Date Value 12/03/2022 96 mmol/L 12/08/2015 102 mEq/L CO2 Date Value 12/03/2022 32 mmol/L 12/08/2015 31 mEq/L Creatinine Date Value 12/03/2022 0.78 mg/dL 11/26/2022 1.16 MG/DL BUN (mg/dL) Date Value 12/03/2022 13 12/08/2015 16 Anion Gap Date Value 12/03/2022 6 mmol/L 12/08/2015 11 Calcium (mg/dL) Date Value 12/08/2015 9.3 Calcium, Total (mg/dL) Date Value 12/03/2022 9.1 Protein, Total (g/dL) Date Value 12/03/2022 7.7 12/08/2015 9.5 Albumin (g/dL) Date Value 12/03/2022 3.1 12/08/2015 3.4 Bilirubin, Total Date Value 12/03/2022 1.4 mg/dL 11/26/2022 0.80 Alkaline Phosphatase Date Value 12/03/2022 992 U/L 11/26/2022 1,147 AST Date Value 12/03/2022 140 U/L 11/26/2022 145 ALT Date Value 12/03/2022 131 U/L 11/26/2022 145 Vitamin D 25 Hydroxy (ng/mL) Date Value 11/06/2022 9.1 ] Hemoglobin A1C (%) Date Value 11/05/2022 8.4 2022 8.6 02/12/2021 8.8 12/08/2015 8.3 Hemoglobin A1c (%) Date Value 05/22/2021 7.4 09/11/2020 6.4 12/30/2019 6.9 Hemoglobin A1C (POCT) (%) Date Value 12/24/2021 7.5 09/10/2021 7.4 05/22/2021 7.4 09/11/2020 6.4 HGBA1C (%) Date Value 07/30/2019 6.5 04/30/2019 6.6 01/25/2019 8.1 09/10/2018 8.2 05/29/2018 10.3 06/25/2016 7.0 SPIROMETRY: Reviewed in [facility] SPIROMETRY BASELINE ONLY ([id number]) - ordered on 12/04/22 ID: [id number] Name: JAY BARBER Race: White Ht: 62.01 in Wt: 89.51 lbs Age: 27 Gender: Male : 1995 Dx: Cystic fibrosis_ Smoking Hx: Non-smoker Doctor: SHE PETE Test Date: 12/04/2022 [facility] Tech: Kaylen Daigle PRE-BRONCH POST-BRONCH Pre LLN Pred ULN %Pred Post %Pred %Chg SPIROMETRY FVC (L) 2.16 3.29 4.08 4.88 52 FEV1 (L) 0.75 2.75 3.44 4.11 21 FEV1/FVC 0.35 0.73 0.85 0.94 40 PEF L/s (L/sec) 3.59 6.73 8.55 10.37 41 FEF50 (L/sec) 0.24 2.03 4.16 6.28 5 FIF50 (L/sec) 2.45 FEF50/FIF50 0.10 90-100 FIVC (L) 2.04 ELP43-87 (L/sec) 0.20 2.34 3.75 5.49 5 Time (sec) 14.92 FET PEF (sec) 0.04 MACIEL (L) 0.02 Vol Extrap % (%) 1 Comments: ATS/ERS acceptability and repeatability standards for spirometry met. //[facility] SPIROMETRY BASELINE ONLY ([id number]) - ordered on 11/20/22 PRE-BRONCH POST-BRONCH Pred LLN ULN Actual %Pred Actual %Chng SPIROMETRY FVC (L) 4.08 3.29 4.88 2.34 57 FEV1 (L) 3.44 2.75 4.11 0.82 23 FEV1/FVC 0.85 0.73 0.94 0.35 41 FEF25 (L/sec) 0.54 FEF50 (L/sec) 4.16 2.03 6.28 0.27 6 FEF75 (L/sec) 1.51 0.80 2.67 0.10 6 SPX23-74 (L/sec) 3.75 2.34 5.50 0.22 5 PEF L/s (L/sec) 8.55 6.73 10.37 3.81 44 FIVC (L) 2.25 FIF50 (L/sec) 2.88 PIF (L/sec) 3.14 Time (sec) 14.45 MACIEL (L) 0.02 FET PEF (sec) 0.04 SPIROMETRY BASELINE ONLY ([id number]) - ordered on 11/05/22 PRE-BRONCH POST-BRONCH Pred LLN ULN Actual %Pred Actual %Chng SPIROMETRY FVC (L) 4.08 3.29 4.88 1.72 42 FEV1 (L) 3.44 2.75 4.11 0.62 17 FEV1/FVC 0.85 0.73 0.94 0.36 42 FEF25 (L/sec) 0.42 FEF50 (L/sec) 4.16 2.04 6.28 0.22 5 FEF75 (L/sec) 1.51 0.80 2.68 0.10 6 NYG22-08 (L/sec) 3.75 2.34 5.50 0.17 4 PEF L/s (L/sec) 8.55 6.73 10.37 2.68 31 FIVC (L) 1.30 FIF50 (L/sec) 2.06 PIF (L/sec) 2.06 Time (sec) 13.10 MACIEL (L) 0.03 FET PEF (sec) 0.07 MICROBIOLOGY: Reviewed MICROBIOLOGY SNAPSHOT CF Pulmonary Exacerbation (MRSA, B Cepacia complex- vietnamiensis, recent Influenza A) S/p IV Vancomycin 750mg every 12 hrs and Meropenem 1.5g every 8 hrs, started 11/05/2022 and stopped 11/27/2022 S/p PO minocycline and prednisone x 5 days Given stabilization of labs, in the face of side effects from IV antibiotic therapy include rising LFTs/Cr/peripheral eosinophilia, will Recheck labs 2x week, reassess after Friday's labs Stop IVFs Pull PICC Will need to send orders to [facility] F/U in [place] 12/[address] Kilgore Call if symptoms worsen Flu, Covid vaccines ---inhaled - start cayston 75mg TID - (per pt has received) ---Lab monitoring is being done and -next tomorrow 12/05/2021 Lung Function ---Baseline FEV1 is 28 % predicted. ---Pre-treatment FEV1 was 17 % predicted. ---FEV1 today is 21 % predicted (was 23% 11/20/22) Anti-inflammatory therapy and Airway obstruction ---not on Azithromycin due to prior NTM ---Patient doing acapella twice daily ---Restart dornase every day 2. CF liver disease - generally stable transaminitis - suspect related to IV abx, trikafta already adjusted. Already stopped IV abx - adjust as above. Repeat labs tomorrow and then next week 3. Acute kidney injury - suspect related to IV abx as well as dehydration/volume depletion -already stopped IV abx, will now discontinue IVFs at night, -repeat labs tomorrow and then next week 4. CFRD Continue to monitor glucoses, watch for rebound low sugars given recent highs and steroids (now stopped) - if worsening symptoms - will need to come back into hospital for admission RTC: 3 weeks, December [address] Kilgore at [place] with spirometry Jean Pierre Kilgore MD documented in this encounterOhio[facility]01-04-2023 History of Present illness Narrative* Kaylen Pilo Solomon - 12/04/2022 3:33 PM EST PULM FUNCTION SMARTBLOCK: Provider: She Pete DO Spirometry: 1 documented in this encounterOhiohealth Mansfield Hospital12-30-2022 Miscellaneous Notes* Telephone Encounter - She Pete DO - 11/29/2022 10:44 AM EST Called and left voicemail for patient to get labs drawn again as the CMP did not get drawn. Placed new orders for standing labs as well to ensure that the lab can see them She Pete DO documented in this encounterOhiohealth Mansfield Hospital12-30-2022 Nurse Note* Fern Watts Adm Asst I - 11/29/2022 9:55 AM EST Per orders of Dr.Holman koroma copat stop date of 11/29. Patient's to maintain picc. Repeat labs today and then next week. Message sent to Pharmacy. Fern Watts Adm Asst I documented in this encounterOhiohealth Mansfield Hospital12-28-2022 Miscellaneous Notes* Telephone Encounter - Samra Discenza Insurance Spec - 11/27/2022 9:46 AM EST faxed again 11/26/22 * Telephone Encounter - Samra Discenza Insurance Spec - 11/26/2022 1:05 PM EST Can I please get the status of the authorization form for patients IVF's that was faxed to your office 11/19/22, thanks. * Telephone Encounter - Samra Rust Spec - 11/19/2022 1:33 PM EST Patients [employer] insurance requires a prior authorization for their 0.9% Sodium Chloride 1000 ml Infuse 1000 ml daily for 4 days. I have faxed the authorization form to [phone] as per Nell. I have completed the necessary prior authorization form , all that is required is review and signature by prescribing provider along with notes stating need for the IVF . Once completed, simply return the signed form to Samra Lino at fax [phone] or via [employer] e-mail at [email or web address]. documented in this encounterOhiohealth Mansfield Hospital12-27-2022 Miscellaneous Notes* Telephone Encounter - Nell Marta - 11/26/2022 11:43 AM EST Images from the original note were not included. * Telephone Encounter - Nell Lozano - 11/26/2022 11:39 AM EST Images from the original note were not included. Outside labs have been uploaded through [employer]. There may be a delay before report appears in Epic. documented in this encounterOhiohealth Mansfield Hospital12-22-2022 Miscellaneous Notes* Telephone Encounter - Luiza Rodriges MD - 11/21/2022 1:06 PM EST team has already addressed this documented in this encounterOhiohealth Mansfield Hospital12-21-2022 Nurse Note* Fern Watts Adm Asst I - 11/20/2022 10:10 AM EST Per orders of Dr.Holman salas copat until 11/29. Message sent to Pharmacy. Fern Watts Adm Asst I documented in this encounterOhiohealth Mansfield Hospital12-21-2022 History of Present illness Narrative* Kaylen Pilo Solomon - 11/20/2022 8:15 AM EST PULM FUNCTION SMARTBLOCK: Provider: Sally Schneider APRN.ACQUISITION ANALYST Spirometry: 1 documented in this encounterOhiohealth Mansfield Hospital12-21-2022 History of Present illness Narrative* She Pete DO - 11/20/2022 8:00 AM EST Images from the original note were not included. PULMONARY MEDICINE CYSTIC FIBROSIS FOLLOW UP Patient Name: Jay Barber PRIMARY CARE PHYSICIAN: No primary care provider on file. 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 Currently on Home IV abx therapy targeting respiratory tract infection with Pseudomonas/MRSA/Burkholderia. Antibiotic Regimen and Monitoring ---Start Date: 11/05/2022 ---The patient is being treated with Intravenous Meropenem and Vancomycin ---inhaled colistin. ---Side effects from IV antibiotic therapy include --> none so far ---Lab monitoring is being done and -------Labs in Epic - from 11/18/2022 - slight rise in BUN/Cr as well as LFTs - added IVFs at night, recheck labs today ---No issues with IV access - left upper extremity 2 lumen PICC ---Also needs nightly IVFs due to rise in BUN/Cr and LFTs - will continue those for the rest of theweek as well Lung Function ---Baseline FEV1 is 28 % predicted. ---Pre-treatment FEV1 was 17 % predicted. ---FEV1 today is 23 % predicted. Nutritional Interventions ---Weight is decreased 86lbs (from 90lbs on 11/05/22) ---Supplements yes - will have RD see next Friday as well The plan is to extend IV antibiotic therapy (with close monitoring for toxicity), anti-inflammatorytherapy, and treatment of airway obstruction for 1 more week - until Friday11/29/2022 We discussed the following today: ---Extend IV abx 1 additional week - to end on 11/29/2022 if labs stable ---Add IVFs with abx as well for the next week due to rise in BUN/Cr and LFTs ---send message to ID regarding copat ---labs today for follow-up - CBC w/Diff, CMP and Mag RTC: Friday11/29/2022 at 3:30PM - will obtain at that time from PICC. If doing well, will stop IV abx and remove PICC in clinic She Pete, DO 11/20/22 1. CYSTIC FIBROSIS PULMONARY DISEASE AND BRONCHIECTASIS Symptoms stable FEV1% predicted today: 23% <---was 17% 11/05/22; was 28% 09/11/22 Complicated by chronic respiratory tract infection with PsA, Burkholderia vietnamiensis (sent to [facility] in 2019), MRSA Chronic maintenance regimen: CFTR modulators: Trikafta - on adjusted dosing due to Cirrhosis - reports taking 2 orange pills on even days of the month and 1 orange pill on odd days of the month, No blue pills - Pulmozyme: BID Hypertonic saline: BID Chronic Azithromycin (anti-inflammatory): No (on hold due to prior NTM) Inhaled Abx: not currently using - but did find his altera device at home, does not have cayston but can get it if needed in the future for exacerbations Ibuprofen: No Nebulized short-acting bronchodilator: albuterol as needed Nebulized other: PEP device: VEST: not currently using ICS: Advair 500/50mg 2 puffs BID Oral prednisone: as needed Pulm rehab: not currently using Supplemental oxygen use: no Exercise and minutes per week: brisk walking/ lifting, 2 hrs per week Recommended ORDER OF AIRWAY CLEARANCE: Albuterol, Hypertonic, VEST (with hypertonic), pulmozyme, Inhaled antibiotics, Inhaled corticosteroids ADVANCED LUNG DISEASE (criteria: FEV1 < 40) and CHRONIC HYPOXEMIC RESPIRATORY FAILURE ---Supplemental oxygen: no ---BIPAP: no ---Pulmonary rehab: no ---ECHO: will need to repeat ---Weight: BMI of 15.84 - down from prior with exacerbation ---Discussed lung transplantation: yes, - not currently interested. ---Referred for lung transplantation: not at this time per patient preference CHRONIC RESPIRATORY TRACT PSEUDOMONAS AND BURKHOLDERIA ---Mucoid phenotype ---Inhaled antibiotic: previously used cayston montly alternating with MUKESH podhaler - not currently doing. Does have the altera device ---Not on chronic azithromycin due to NTM ---Oral antibiotic that patient responds to: Cipro and Bactrim ---IV abx that patient responds to: Tobra (patient has tinnitus so would avoid), meropenem, vancomycin CYSTIC FIBROSIS PANCREATIC INSUFFICIENCY ---No generic enzymes, ever. ---Creon 36,000, 3-4 BEFORE meals AND 2-3 BEFORE snacks ---Fat soluble supplemental vitamins: Vitamin K 40 mcg daily ---CF Vitamins: MVI 2 daily ---Vitamin D2 50,000 weekly Vitamin D 25 Hydroxy (ng/mL) Date Value 07/27/2022 16.0 CYSTIC FIBROSIS LIVER DISEASE --- cirrhosis complicated by esophageal varices, portal hypertension --- Actigall restarted during last hospitalization - --- last RUQ US in 07/27/2022 - cirrhotic liver morphology. No focal hepatic lesions, fatty replacement of the pancreas compatible with underlying cystic fibrosis, mild splenomegaly --- last EGD - 07/30/2022 - small (<5mm) varices were found in the lower third of the esophagus. The entire examined stomach was normal. The examined duodenum was normal. --- last saw hepatology on 07/30/2022 while inpatient - requested hepatology outpatient follow-up --- on mephyton 5mg MWF CHRONIC PANSINUSITIS Sinuses can be a reservoir of bacterial infection and contribute to recurrent lower respiratory tract infections, especially in patients infected with Pseudomonas Symptoms are worse Nasal polyps - unknown? ---Antihistamine: zyrtec ---Nasal steroid: flonase ---Montelukast: added but discussed possible changes with mood ---If not improving with restart sinus medications - will obtain CT sinus and referral to ENT - would like to hold off on this for now given most likely related to change in weather ---Referral to ENT for surgical eval. Appt [phone]. CYSTIC FIBROSIS RELATED DIABETES ---The standard medical therapy for CFRD is subcutaneous insulin (oral diabetic agents should not be used); ---Patient currently on insulin therapy. ---Self monitored blood glucose 3 times per day ---Most recent hgA1c noted. ---Following with Dr. Francis Ramirez at [facility] Severe protein calorie malnutrition - continue ensures - has RD see on Friday when comes to [facility] Prior Invasive Pulmonary Aspergillus infection/Trichosporonosis - treated with voriconazole by ID cosmetic consultant Dr. Burke France in 2019 for 1 year Depression/Anxiety ---continues on celexa 20 mg PO daily ---will see if SW is able to see him in the next week or so HTN ---amlodipine 10 mg PO daily (had hyperkalemia with SEVERINO-I) Proteinuria --- previously seen by Dr. Ahuja in nephrology Vitamin D 25 Hydroxy (ng/mL) Date Value 11/06/2022 9.1 Hemoglobin A1C (%) Date Value 11/05/2022 8.4 2022 8.6 02/12/2021 8.8 12/08/2015 8.3 Hemoglobin A1c (%) Date Value 05/22/2021 7.4 09/11/2020 6.4 12/30/2019 6.9 Hemoglobin A1C (POCT) (%) Date Value 12/24/2021 7.5 09/10/2021 7.4 05/22/2021 7.4 09/11/2020 6.4 HGBA1C (%) Date Value 07/30/2019 6.5 04/30/2019 6.6 01/25/2019 8.1 09/10/2018 8.2 05/29/2018 10.3 06/25/2016 7.0 CHIEF COMPLAINT: Cystic Fibrosis HISTORY OF PRESENT ILLNESS: Jay Barber is a 27 year old male, here for follow-up of Cystic Fibrosis Last seen by Sally at the beginning of the month and was direct admitted to the hospital for CF exacerbation requiring IV abx, influenza A requiring tamiflu. Was discharged on 11/11/22 with IV Vancand IV Meropenem. Had PICC line placement on 11/07/2022 Courses of oral abx since last visit:1 - Bactrim & Cipro Courses of IV abx since last visit:1 Prednisone use since last visit: 0 ED visits since last visit: 1 Hospitalizations since last visit: 1 INTERVAL HISTORY RESPIRATORY: Cough: daily but improving Paroxysms: no Sputum: daily but thinning Hemoptysis: no Chest Congestion: improved Dyspnea: improving Chest Pain: no Night sweats: no Fever: no Fatigue: improved Wheezing: no Sinuses: stable GASTROINTESTINAL: GE Reflux: no Appetite: poor Abdominal Pain:yes due to coughing Bowel Movement: 3/day, Diet (details): high calorie/high fat Supplements: yes Vomiting: no Prolapse: None TINNITUS: yes JOINT/BACK PAIN: no/yes Anxiety yes Depression: yes ENDOCRINE CFRD: present Without polyuria, polydipsia, nocturia or hypoglycemic symptoms 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) Liver disease care home (current) use of insulin (HCC) Transfusion history Type 1 diabetes mellitus with hyperglycemia (HCC) PAST SURGICAL HISTORY Procedure Laterality Date PAST SURGICAL HISTORY OF splenal renal shunt to treat portal hypertension FAMILY HISTORY Problem Relation Age of Onset Hypertension Mother Breast Cancer Other other (hypercholesterolemia) Other other (heart disease in female family member before age 65) Other Social History Tobacco Use Smoking status: Never Smokeless tobacco: Never Vaping Use Vaping Use: Never used Substance Use Topics Alcohol use: No Drug use: No ALLERGIES: ALLERGIES Allergen Reactions Vancomycin Itching, Rash Gets Red Man syndrome and pt if not premedicated with benadryl prior to Vancomycin infusions. Cefoxitin Rash, Other: See Comments Severe abdominal pain, diarrhea, rash Severe Abdominal Pains CURRENT OUTPATIENT MEDICATIONS: 0.9 % sodium chloride (NACL 0.9%) infusion Inject 125 mL/hr intravenously daily at bedtime for 4 days. heparin (HEPARIN LOCKFLUSH,PORCINE,,PF,) 10 unit/mL injection Inject 5 mL intravenously every 8 hours for 14 days. Flush PICC after antibiotics SASH method diphenhydrAMINE (BENADRYL) 50 mg/mL injection Inject 50 mg intravenously every 12 hours for 15 days. Prior to IV vancomycin dosing cetirizine (ZYRTEC) 5 mg tablet Take 10 mg by mouth once daily. insulin detemir (LEVEMIR FLEXPEN SUBCUTANEOUS) Inject 8 Units subcutaneously daily at bedtime. carvedilol (COREG) 6.25 mg tablet Take 1 tablet by mouth twice daily with meals. fwspekacfge-jcfsdiijlj-oncgkjczv (TRIKAFTA) 100-50-75 mg(d) /150 mg (n) tablet Take 2 tablets by mouth every 48 hours. Take 2 orange tablets on even number days. Then take 1 tablet on Odd number days. Discard blue tablets. DO NOT crush, chew, or open. ipratropium-albuterol (DUONEB) 0.5 mg-3 mg(2.5 mg base)/3 mL nebu Inhale 3 mL as instructed twice daily as needed. montelukast (SINGULAIR) 10 mg tablet Take 1 tablet by mouth daily at bedtime. (Patient taking differently: Take 10 mg by mouth every morning.) citalopram hydrobromide (CELEXA) 20 mg tablet Take 1 tablet by mouth once daily. ursodiol (ACTIGALL) 300 mg capsule Take 300 mg by mouth twice daily. Nebulizers 1 Each three times daily. albuterol HFA (PROAIR HFA) 90 mcg/actuation inhaler Inhale 2 Puffs as instructed every 4 hours as needed for wheezing/shortness of breath. VITAMIN D2 1,250 mcg (50,000 unit) capsule Take 1 capsule by mouth two times a week. fluticasone-salmeterol (ADVAIR) 500-50 mcg/dose dsdv Inhale 1 Puff as instructed twice daily. fluticasone (FLOVENT) 220 mcg/actuation inhaler Inhale 1 Puff as instructed once daily as needed. (Patient taking differently: Inhale 1 Puff as instructed twice daily.) insulin lispro (HUMALOG KWIKPEN INSULIN) 100 unit/mL Dose varies units with meals and sliding scale, using about 40 total units a day Insulin Calvin, Disposable, (BD ULTRA-FINE YARON PEN NEEDLE) 32 gauge x 5/32 5x/day glucagon (GLUCAGON EMERGENCY KIT, HUMAN,) 1 mg injection use as directed if needed for SIGNIFICANT LOW BLOOD SUGAR EVENT CREON 36,000-114,000- 180,000 unit capsule Take 3 capsules by mouth. With every meal aztreonam lysine (CAYSTON) 75 mg/mL nebulizer solution Inhale 1 mL as instructed three times daily.28 days on 28 days off Send altera nebulizer with each shipment Nebulizers 1 Each three times daily. REVIEW OF SYSTEMS CONSTITUTIONAL: No fever, no chills. +fatigue No acute distress. HEENT:Pos for sinusitis; See HPI RESPIRATORY: Positive for cough. See HPI CARDIOVASCULAR: Neg for chest pain. Pos for chest soreness due to coughing GASTROINTESTINAL: No pain. No blood in stools or black stools MUSCULOSKELETAL: No joint pain or stiffness NEUROLOGIC:Negative for focal numbness or weakness, SKIN:Negative for rash. PSYCHIATRIC: Negative for mood disorder The remainder of the ROS was negative. PHYSICAL EXAMINATION: VITAL SIGNS: BP 118/80 Pulse 100 Temp (Src) 98.8 (Temporal) Resp 16 Ht 5' 2.012 (1.58m) Wt 86 lb 10.3 oz (39.3kg) SpO2 95% BMI 15.84 kg/(m^2). Last 5 Encounter Wt Readings: Date: Wt: 11/05/2022 40.5 kg (89 lb 4.6 oz) 11/05/2022 40.8 kg (90 lb) 11/05/2022 40.8 kg (90 lb) 09/11/2022 41.6 kg (91 lb 11.2 oz) 08/09/2022 39.4 kg (86 lb 13.8 oz) GENERAL APPEARANCE: He Is well appearing, alert, in no acute distress, well-hydrated, INTEGUMENTARY: skin color, texture, turgor normal, no rashes or lesions; PICC in left upper arm - dressing is clean, dry and intact - no erythema noted. EYES: Anicteric sclera. Pupils are equally round and reactive to light. Extraocular movements are intact. ENT: no nasal erthema; mild congestion of B turbinates; +cobblestoning. mild HEME/LYMPH: Supple neck, no adenopathy; thyroid symmetric, normal size, no bruits RESPIRATORY: clear upper lobes, crackles at left base CARDIOVASCULAR: No edema. RRR without murmur, gallop, or rubs. No ectopy GI: Normal abdominal exam, Abdomen soft, non-tender. Bowel sounds normal. No masses, organomegaly MUSCULOSKELETAL: No arthritis. No deformities or cyanosis. Gait normal. PSYCH:no signs of depression or anxiety Neuro: Non-focal. Sensation grossly intact. DATA: Diagnostic tests reviewed for today's visit were personally reviewed by me: Sputum culture results and Most recent labs LAST LAB RESULTS: ---Reviewed in [facility] CBC with diff: WBC 8.4 08/06/2022 RBC 3.33 08/01/2022 Hemoglobin 11.5 08/06/2022 Hematocrit 34.3 08/06/2022 MCV 91.3 08/01/2022 MCH 31.2 08/01/2022 MCHC 34.2 08/01/2022 RDW-CV 13.2 08/01/2022 Platelet Count 422 08/06/2022 MPV 9.1 08/01/2022 Neut% 57.5 08/06/2022 Lymph% 9.8 07/29/2022 [place]% 12.6 07/29/2022 Eosin% 7.9 08/06/2022 Baso% 0.4 07/29/2022 Abs Neut (Segs + Bands) 4.8 08/06/2022 Abs [place] 1.28 07/29/2022 Abs Eosin 0.17 07/29/2022 Abs Baso 0.04 07/29/2022 Glucose (mg/dL) Date Value 11/11/2022 129 12/08/2015 113 Potassium Date Value 11/11/2022 4.6 mmol/L 12/08/2015 4.5 mEq/L Sodium Date Value 11/11/2022 134 mmol/L 12/08/2015 139 mEq/L Chloride Date Value 11/11/2022 101 mmol/L 12/08/2015 102 mEq/L CO2 Date Value 11/11/2022 25 mmol/L 12/08/2015 31 mEq/L Creatinine Date Value 11/11/2022 0.66 mg/dL 08/07/2022 1.04 MG/DL BUN (mg/dL) Date Value 11/11/2022 12 12/08/2015 16 Anion Gap Date Value 11/11/2022 8 mmol/L 12/08/2015 11 Calcium (mg/dL) Date Value 12/08/2015 9.3 Calcium, Total (mg/dL) Date Value 11/11/2022 8.5 Protein, Total (g/dL) Date Value 11/11/2022 7.0 12/08/2015 9.5 Albumin (g/dL) Date Value 11/11/2022 2.1 12/08/2015 3.4 Bilirubin, Total (mg/dL) Date Value 11/11/2022 0.5 12/08/2015 1.3 Alkaline Phosphatase (U/L) Date Value 11/11/2022 811 12/08/2015 807 AST (U/L) Date Value 11/11/2022 95 12/08/2015 110 ALT (U/L) Date Value 11/11/2022 36 12/08/2015 164 Vitamin D 25 Hydroxy (ng/mL) Date Value 11/06/2022 9.1 ] Hemoglobin A1C (%) Date Value 11/05/2022 8.4 2022 8.6 02/12/2021 8.8 12/08/2015 8.3 Hemoglobin A1c (%) Date Value 05/22/2021 7.4 09/11/2020 6.4 12/30/2019 6.9 Hemoglobin A1C (POCT) (%) Date Value 12/24/2021 7.5 09/10/2021 7.4 05/22/2021 7.4 09/11/2020 6.4 HGBA1C (%) Date Value 07/30/2019 6.5 04/30/2019 6.6 01/25/2019 8.1 09/10/2018 8.2 05/29/2018 10.3 06/25/2016 7.0 SPIROMETRY: Reviewed in [facility] MICROBIOLOGY: Reviewed MICROBIOLOGY SNAPSHOT Written and verbal health teaching given to patient, patient verbalizes understanding and agrees with treatment plan. I spent a total of 50 minutes on the date of the service which included preparing to see the patient, [id number] patient care, completing clinical documentation, performing a medically appropriate examination, ordering medications, tests, or procedures, communicating with other HCPs (not separately reported), independently interpreting results (not separately reported), communicating results tothe patient/family/caregiver, and care coordination (not separately reported). Electronically Signed: She Pete DO November 20, 2022 documented in this encounterOhiohealth Mansfield Hospital12-19-2022 Miscellaneous Notes* Addendum Note - Miguelina Murray RN - 11/18/2022 4:37 PM ESTAddended by: MIGUELINA MURRAY on: 11/18/2022 04:37 PM Modules accepted: Orders * Telephone Encounter - Miguelina Murray RN - 11/18/2022 4:31 PM EST Discussed labs with patient. Patient states he is at about 75% better in regards to his breathing and CF symptoms. Will continue Meropenum until atleast Friday and repeat labs at Clinic visit. Will discuss plan of care further from there. Dr. Pete notified. Miguelina Murray RN [employer] [facility] Bronchiectasis [facility] A110 * Telephone Encounter - Nell Lozano - 11/18/2022 12:41 PM EST Images from the original note were not included. Outside labs have been uploaded through [employer]. There may be a delay before report appears in Epic. documented in this encounterOhiohealth Mansfield Hospital12-19-2022 History of Present illness Narrative* Miguelina Murray RN - 11/18/2022 9:12 AM ESTSummary: New patient referral Images from the original note were not included. 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, Trichosporonosis, Aspergillus ---Pancreatic insufficiency - on enzymes with Creon ---CFRD - follows with endocrinology ---CF Liver disease - complicated by portal hypertension, esophageal varices ---Chronic sinusitis ---Anxiety/Depression Exacerbations in the last 12 months: Dates of IV in hospital: 11/05/2022-11/11/2022; 07/26/2022-07/31/2022 Dates of IVs at home: 11/11/2022-present; 08/01/2022-08/09/2022 FEV1%: 17% 11/05/2022; 28% 09/11/2022; 25% 08/09/2022 FEV1%trend: Drop in FEV1 BMI: 156.12 kg/m BMI Trend: Decrease in the past [address] ANNUAL VISIT Needed: Done; 11/05/2022 RT ANNUAL VISIT Needed: Needs SW ANNUAL VISIT Needed: Needs Mental health screen: ANNUAL Labs Needed: Done; 2022 Last OGTT/CFRD: N/A CFRD Dexa: Done; 01/25/2019, NEEDS REPEAT; ORDERED FINDINGS: Overall comparison to the prior exam is limited as software was updated in the interval. No obvious significant improvement or worsening. The mean BMD estimated from L1-L4 is 0.770 with a Z score of -2.9 (less than - 2.0 is abnormal). The mean BMD estimated from left hip is 0.7 with a Z score of -2.2, and estimated from the right hip is 0.723 with Z score of -2 (less than -2.0 is abnormal). Colonoscopy (age > 35): N/A age Chronic Medications: (List why If not on medication): CFTR modulators: Trikafta - on adjusted dosing due to Cirrhosis - reports taking 2 orange pills on even days of the month and 1 orange pill on odd days of the month, No blue pills (last LFTs 08/09/22) Pulmozyme: has at home but not currently using Hypertonic saline: has at home but not currenltly using Chronic Azithromycin (anti-inflammatory): No (on hold due to prior NTM) Inhaled Abx: Inhaled Cayston, PRN; ON since hospital admission Ibuprofen: No Referral to Endo: get appt with Shefali? Referral to Transplant: Patient has declined Tx workup at this time EPIC/Phone Messages since last visit: ---Home care ---Orders for lab work and PICC dressing to [facility] Other issues: None Plan for visit: ---CF swab ---Hospital admission/IV follow up ---Needs SW and RT Miguelina Murray RN Tele Grout Sewer Line Repairer CF and Bronchiectasis Programs A110 documented in this encounterOhio[facility] History of Present illness Narrative* Sally Schneider APRN.ARIAS - 11/05/2022 2:24 PM EST PULMONARY MEDICINE CYSTIC FIBROSIS PLAN OF CARE NOTE Please use the cystic fibrosis order set in [facility] to place the admission orders. The order set has CF specific dosing for the antibiotics as well as CF specific orders. Patient sent to the Emergency Dept to get admitted for CF pulmonary exacerbation. RVP done in Clinic was influenza A positive. Please start tamiflu in ED. Get an ABG in ED and please start IV Levaquin 750 mg every 24 hours, IV meropenem 1.5 grams every 8 hours and IV vancomycin 750 mg every 12 hours. Primary Pulmonary Service Staff Physician: Emeterio Patient is being admitted to the Primary Pulmonary Service. Dr. Hale is the CF Consult Physician. P. [phone] Sally Schneider CNP CF NUT ROASTER. p. [phone] Reason for admission: CF Pulmonary Exacerbation Desired Floor: J82- All CF patients are in contact precautions (please order) and require private room Brief HPI: Jay Barber is a 27 year old male with cystic fibrosis, c/b advanced stage lung disease, chronic infection with B. Cepacia, pseudomonas, MRSA, intermittent inf with MAC, aspergillus and trichosporonosis, pancreatic insufficiency, CFRD, CF liver disease--complicated by portal hypertension, esophageal varices, and chronic sinusitis. He was seen in CF clinic today for worsening cough, sputum production, shortness of breath and fatigue. He developed increased sputum production and cough 2 weeks ago and was started on oral antibiotics. Over the past couple days his symptoms worsened and he developed more shortness of breath, fatigue and coughing. He was sent to the ED to be admitted for a CF pu lmonary exacerbation. Preferred IV access: Picc line to be placed in bedside; patient will need ativan 0.5 mg prior to PICC placement. . -PIPCC to be flushed with Heparin after each antibiotic. Please order Heparin 10 units/ml. EPIC order: Heparin Lock Flush 10 units/ml, injection 2-5 mls IV every 8 hours. After antibiotics flush with saline then 5 mls of 10u/ml Heparin before unhooking patient from IV. Patient does not require daily labs. Please draw safety labs twice a week (Mon and Thurs) CBC/diff/ CMP/ Magnesium as long as stable. Desired Consultations: Nutrition consult. Request for Meal Vouchers: CF patients have high caloric needs which are increased even more with a pulmonary exacerbation. Would appreciate daily meal vouchers in addition to normal food tray service. Suggested Antibiotics: Levaquin 750 mg every 24 hours Meropenem 2g IV q8 hours Vancomycin 750 mg every 12 hours Inhaled cayston Laboratory requests: Please get ABG in the Emergency room and the following labs: CMP, CBC, Magnesium, IgE, INR, PT, PTT, ESR, CRP, HgA1C, Vit D Other requests: -IV benadryl 50 mg prior to vancomycin dosing Vital signs daily after 10 am. Does not need q shift vitals. CF patients are frequently dehydrated on admission and benefit from IV hydration with saline for a couple days. If sputum very thick, consider starting IV fluids Do not give ibuprofen for pain because of nephrotoxicity. Only use tylenol If ambulatory we do not use subq heparin documented in this encounterOhio[facility]12-05-2022 Miscellaneous Notes* Telephone Encounter - Nell Lozano - 11/04/2022 3:44 PM EST I called the patient back to follow up on his call from earlier since very little information was provided. Patient states that he was calling the office back to let the team know that he is not feeling better following two weeks of oral abx. He believes it is time to start iv abx. He is okay with coming up to [facility] for a PFT and an appointment with Sally to discuss starting iv abx and the possible need to start the abx in house before being discharged home with ivs. Patient is scheduled to come to [facility] tomorrow. * Telephone Encounter - PRABHA Pitt - 11/04/2022 2:22 PM EST Patient called requesting appointment with CF doctor. documented in this encounterOhio[facility]10-26-2022 Miscellaneous Notes* Telephone Encounter - Daniel Yu RN - 09/25/2022 1:42 PM EDT Pharmacy called requesting the following refill. Requested Prescriptions Pending Prescriptions Disp Refills poxufldqfwh-nzlvlcwevw-nsldyfrnr (TRIKAFTA) 100-50-75 mg(d) /150 mg (n) tablet 84 Each 1 Sig: Take 2 tablets by mouth every 48 hours. Take 2 orange tablets on even number days. Then take 1tablet on Odd number days. Discard blue tablets. DO NOT crush, chew, or open. Patient Phone numbers: [phone] (home) Request is for script(s) to be escript to pharmacy. Daniel Yu RN documented in this encounterOhiohealth [facility]10-12-2022 History of Present illness Narrative* She Pete DO - 09/11/2022 9:48 AM EDT Images from the original note were not included. PULMONARY MEDICINE CYSTIC FIBROSIS FOLLOW UP Patient Name: Jay Barber PRIMARY CARE PHYSICIAN: No primary care provider on file. Portions of this note were taken from the note dated 08/09/2022 by Sally Schneider ASSESSMENT AND PLAN: Jay Barber is a 27 year old male, here for follow-up of Cystic Fibrosis 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 (01/[birth year]/1994 - report given today by patient - will scan into chart. 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, Trichosporonosis, Aspergillus ---Pancreatic insufficiency - on enzymes with Creon ---CFRD - follows with endocrinology ---CF Liver disease - complicated by portal hypertension, esophageal varices ---Chronic sinusitis ---Anxiety/Depression A CF Pulmonary Exacerbation is Absent We discussed the following today: - spirometry improved and back to FEV1 of 28% after CF pulmonary exacerbation requiring hospitalization and COVID - feeling well from pulmonary perspective - does have altera device at home when he needs - labeled sputum cup today - will bring back to clinic when able to produce sputum - repeat CMP today - check LFTs - feeling a little down today - has been off celexa for about a week - refilled, if not improving with restarting meds - may consider dose adjustment vs see psych. Will see if Varsha is able to reachout to him - worsening sinus congestion - associated with change in seasons - zyrtec, flonase, can trial singulair, sinus rinses- did discuss regarding potential issues with possible mood changes - complete [facility] paperwork - asked about transplant today - remains not interested at this time RTC: 01/22/2023 at [facility] with spirometry and then in the summer at [facility] for entire team She Pete, DO 09/11/2022 1. CYSTIC FIBROSIS PULMONARY DISEASE AND BRONCHIECTASIS Symptoms stable FEV1% predicted today: 28% Complicated by chronic respiratory tract infection with PsA, Burkholderia vietnamiensis (sent to [facility] in 2019), MRSA Chronic maintenance regimen: CFTR modulators: Trikafta - on adjusted dosing due to Cirrhosis - reports taking 2 orange pills on even days of the month and 1 orange pill on odd days of the month, No blue pills - will f/up LFTs today Pulmozyme: has at home but not currently using Hypertonic saline: has at home but not currenltly using Chronic Azithromycin (anti-inflammatory): No (on hold due to prior NTM) Inhaled Abx: not currently using - but did find his altera device at home, does not have cayston but can get it needed in the future for exacerbations Ibuprofen: No Nebulized short-acting bronchodilator: albuterol as needed Nebulized other: PEP device: VEST: not currently using ICS: Advair 500/50mg 2 puffs BID Oral prednisone: as needed Pulm rehab: not currently using Supplemental oxygen use: no Exercise and minutes per week: brisk walking/ lifting, 2 hrs per week Recommended ORDER OF AIRWAY CLEARANCE: Albuterol, Hypertonic, VEST (with hypertonic), pulmozyme, Inhaled antibiotics, Inhaled corticosteroids ADVANCED LUNG DISEASE (criteria: FEV1 < 40) and CHRONIC HYPOXEMIC RESPIRATORY FAILURE ---Supplemental oxygen: no ---BIPAP: no ---Pulmonary rehab: no ---ECHO: will need to repeat ---Weight: BMI of 16.77 ---Discussed lung transplantation: yes, today - not currently interested. ---Referred for lung transplantation: not at this time per patient preference CHRONIC RESPIRATORY TRACT PSEUDOMONAS AND BURKHOLDERIA ---Mucoid phenotype ---Inhaled antibiotic: previously used cayston montly alternating with MUKESH podhaler - not currently doing. Does have the altera device ---Not on chronic azithromycin due to NTM ---Oral antibiotic that patient responds to: Cipro and Bactrim ---IV abx that patient responds to: IV TOBRAMYCIN, meropenem, vancomycin CYSTIC FIBROSIS PANCREATIC INSUFFICIENCY ---No generic enzymes, ever. ---Creon 36,000, 3-4 BEFORE meals AND 2-3 BEFORE snacks ---Fat soluble supplemental vitamins: Vitamin K 40 mcg daily ---CF Vitamins: MVI 2 daily ---Vitamin D2 50,000 weekly Vitamin D 25 Hydroxy (ng/mL) Date Value 07/27/2022 16.0 CYSTIC FIBROSIS LIVER DISEASE --- cirrhosis complicated by esophageal varices, portal hypertension --- Actigall restarted during last hospitalization - --- last RUQ US in 07/27/2022 - cirrhotic liver morphology. No focal hepatic lesions, fatty replacement of the pancreas compatible with underlying cystic fibrosis, mild splenomegaly --- last EGD - 07/30/2022 - small (<5mm) varices were found in the lower third of the esophagus. The entire examined stomach was normal. The examined duodenum was normal. --- last saw hepatology on 07/30/2022 while inpatient - requested hepatology outpatient follow-up --- on mephyton 5mg MWF CHRONIC PANSINUSITIS Sinuses can be a reservoir of bacterial infection and contribute to recurrent lower respiratory tract infections, especially in patients infected with Pseudomonas Symptoms are worse Nasal polyps - unknown? ---Antihistamine: zyrtec ---Nasal steroid: flonase ---Montelukast: added but discussed possible changes with mood ---If not improving with restart sinus medications - will obtain CT sinus and referral to ENT - would like to hold off on this for now given most likely related to change in weather ---Referral to ENT for surgical eval. Appt [phone]. CYSTIC FIBROSIS RELATED DIABETES ---The standard medical therapy for CFRD is subcutaneous insulin (oral diabetic agents should not be used); ---Patient currently on insulin therapy. ---Self monitored blood glucose 3 times per day ---Most recent hgA1c noted. ---Following with Dr. Francis Ramirez at [email or web address] Severe protein calorie malnutrition - continue ensures - will have fernando follow-up with him Prior Invasive Pulmonary Aspergillus infection/Trichosporonosis - treated with voriconazole by ID cosmetic consultant Dr. Burke France in 2019 for 1 year Depression/Anxiety ---continues on celexa 20 mg PO daily - refilled today ---will see if SW is able to see him in the next week or so HTN ---amlodipine 10 mg PO daily (had hyperkalemia with SEVERINO-I) Proteinuria --- previously seen by Dr. Ahuja in nephrology Hemoglobin A1C (%) Date Value 2022 8.6 02/12/2021 8.8 12/08/2015 8.3 Hemoglobin A1c (%) Date Value 05/22/2021 7.4 09/11/2020 6.4 12/30/2019 6.9 Hemoglobin A1C (POCT) (%) Date Value 12/24/2021 7.5 09/10/2021 7.4 05/22/2021 7.4 09/11/2020 6.4 HGBA1C (%) Date Value 07/30/2019 6.5 04/30/2019 6.6 01/25/2019 8.1 09/10/2018 8.2 05/29/2018 10.3 06/25/2016 7.0 ANNUAL SCREENING: Annual labs: completed 2021 OGTT: not needed due to CFRD DEXA: needs Colonoscopy: Start screening at age 35-40 years in CF due to increased risk of GI carcinoma: not ofage as of yet CHIEF COMPLAINT: Cystic Fibrosis HISTORY OF PRESENT ILLNESS: Jay Barber is a 27 year old male, here for follow-up of Cystic Fibrosis Courses of oral abx since last visit:0 Courses of IV abx since last visit:0 Prednisone use since last visit: 0 ED visits since last visit: no Hospitalizations since last visit: 1 INTERVAL HISTORY Last seen in clinic 08/09/2022 as home IV follow-up. He was feeling well at that time and his abx were stopped and PICC line pulled. Since then he also was found to have COVID and was given paxlovid. He is feeling well today from a pulmonary perspective. He has noticed worsening sinus congestion withthe change in weather. He is using zyrtec and flonase. Also noticing worsening hearing/tinnitus with congested sinuses and some associated headaches. Improved cough, non-productive. Scant occasional hemoptysis. No reflux, no vomiting or hematemesis.No melena or BRBPR. Appetite is good, no diarrhea or constipation. Has been out of celexa for the last week. Feeling a little bit more down. Reports that with the hospitalization and then covid, not feeling as good as before. No suicidal ideations. RESPIRATORY: Cough: occasional Paroxysms: none Sputum: no Hemoptysis: scant amount Chest Congestion: none Dyspnea: with going up stairs Chest Pain: no Night sweats: no Fever: no Fatigue:no Wheezing: no Sinuses: worsening symptoms- feels that this is related to change in weather GASTROINTESTINAL: GE Reflux: no Appetite: good Abdominal Pain:none Bowel Movement: 4/day, Diet (details): high calorie/high fat Supplements: ensure Vomiting: no Prolapse: None TINNITUS: no JOINT/BACK PAIN: no Anxiety: worsening - has been out of celexa the last week Depression: worsening - has been out of celexa the last week ENDOCRINE CFRD:is present Without polyuria, polydipsia, nocturia or hypoglycemic symptoms Prior exacerbation treatments per [facility] Procedures & IV/Oral Course: -12/15/95-12/23/95 Hospitalized d/t CF, Influ A, DM- IV ABX, BS monitoring -02/24/96-03/01/96 Hospitalized d/t CF exacerbation and DM- IV Cefuroxime -03/01/96 Home Treatment - CF exacerbation - IV Cefuroxime --- -06/15/97-06/21/97 Hospitalized - CF exac.-IV Tobra and Timentin -06/21/97 Home Treatment -CF exacerbation IV Tobra and Timentin --- -08/07/99-08/10/99 Hospitalized - BS out of control - Insulin started, IV Zosyn and Tobra -08/10/99 Home Treatment -CF exacerbation IV Zosyn and Tobra --- -03/19/00-03/22/00 Hospitalized - CF exacerbation - IV Zosyn and Tobra - 03/22/00 Home Treatment -CF exacerbation IV Zosyn and Tobra -04/14/00-04/17/00 Hospitalized - viral illness, fever - PFTs, labs, airosols, PD -08/10/00-08/20/00 Hospitalized - FUO - CT Chest and Gallium Scan (bronchiectasis RUL and LLL --- -02/18/01 OPS- Colonoscopy and biopsy, r/o fibrosing colonopathy --- -03/10/02-03/14/02 Hospitalized -CF exacerbation - IV Tobra and Meropenem -03/14/02-03/24/02 Home Treatment - CF exacerbationIV Tobra and Meropenem --- -06/15/03-06/16/03 Hospitalized - CF exacerbation, chronic bronchitis, D.M. - IV Tobra and Meropenen -06/16/03-06/29/03 Home Treatment -CF exacerbation IV Tobra and Meropenem --- -12/07/2003 Home Treatment - Zyvox x14 days -01/09/2004 Home Treatment - CF exacerbation IV Cefoxitin and po Biaxin treatment atypical mycobacteria -02/08/2004-02/22/2004 Hospitalized - CF exacerbation - IV course of Vancomycin, Tobramycin, and Meropenem x14 days total -09/25/2004 Home Treatment - Cipro x21 days -10/18/2004- 10/24/2004 Hospitalized - CF exacerbation - IV course of Meropenem and Tobramycin and Bactrim po x14 days total -11/21/2004 Home Treatment - Cipro and Duricef x14 days --- -12/26/2004 Home Treatment - Cipro and Duricef x14 days -02/11/2005 Home Treatment - Cipro x14 days -02/27/2005 Home Treatment - po Cipro x7 more days and Prednisone x5 days --- -08/05/2006 Home Treatment - po Bactrim x14 days -09/24/2006 Home Treatment - po Zyvox x14 days -10/11/2006 to 10/17/2006 Hospitalized - CF exacerbation - IV course of Tobramycin, IV Timentin, and IV Zyvox later changed to IV Vancomycin because of pancytopenia- completed three weeks at home -11/26/2006 Home Treatment - po Cipro and po Zyvox x21 days --- -02/10/2007 Home Treatment - po Cipro and po Bactrim x14 days -04/03/2007 to 04/08/2007 Hospitalized - CF exacerbation with first hemoptysis- IV course of Tobramycin, IV Ceftazidime and IV Zyvox continued at home until 04/17/2007- short of three weeks because of thrombocytopenia -04/22/[address] Trejo- low platelets and low white count most likely from cobination of hypersplenism, illness and antibiotics -05/04/[address] 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 --- -06/27/08 - 07/01/08 Hospitalized - CF exacerbation - IV course of Meropenem, Tobramycin and Linezolid. IVs continued at home for total 3 wks. -10/26/08 Home Treatment - PO Cipro and Bactrim DS x 21 days -11/21/08 - 11/28/08 Hospitalized -CF exacerbation - IV course of Timentin, Vancomycin and Tobramycin. IVs continued at home for total 3 wks --- -01/25/09 Home Treatment - PO Zyvox x 10 days -02/01/09 Home Treatment - PO Bactrim DS x 7 days due to rash possibly due to Zyvox (was on for 6 days) -08/23/2009 Hospital/Home CF exacerbation, IV Meropenem, Tobramycin, Vancomycin X 3 weeks --- -04/11/2010 Home treatment Zyvox po X 14 days -04/29/2010-05/02/2010 Hospital: GI bleed secondary to esophageal varices -05/24/2010 OPS: Upper endoscopy with banding of esophageal varices -06/26/2010 Hospital/Home IV -CF exacerbation - 2 weeks Meropenem, Tobramycin, Vancomycin -09/09/2010 Hospital/Home IV CF exacerbation- X 24 days (Pulm. exacerbation with hemoptysis) Meropenem, tobramycin, Vancomycin -10/29/2010 Home treatment Zyvox po X 2 weeks -11/13/2010 Hospital/surgery at [place]: Splenorenal shunt --- -03/13/2011 Home treatment Bactrim po X 21 days -09/18/11 - cipro and rifampin x 14 days -10/23/11 - restart cipro and rifampin x 14 days -11/15/11 - CF exacerbation - Admit for IV start; Meropenem, tobramycin, vancomycin until 12/18/11 --- -02/19/2012 Cipro and Bactrim x14 days -09/03/12 - cipro and bactrim x 14 days --- -12/09/2012- bactrim and cipro x 14 days -01/15/13 admit Hospitalized - CF Exacerbation: IV larisa, tobra cont at home, finish PO zyvox -01/30/13 - Hospitalized - CF Exacerbation: IV larisa, tobra, vanco contd at home, also PO itraconazole & bactrim -06/21/13- 06/25/13 Hospitalized - CF Exacerbation: IV vanc & ceftaz. cont'd at home -07/23/13 diflucan x 1 tab -08/25/13- cipro and bactrim x 14 days over phone -09/03/2013- 10/06/13 -: home IV Zyvox, IV Vancomycin, po Bactrim --- - 12/08/2013 Zyvox x21 days - 03/16/14 Cipro and bactrim over phone - 04/11/14 Admit - CF Exacerbation and home on IV Meropenem and IV Vancomycin until 04/27/14 - 06/29/14- 07/04/14 for hemoptysis. Was started on IV antibiotics which were d/c'd due to low WBC - 07/27/14 Cipro & Bactrim x14 days - 08/22/14 Cipro & Bactrim - 08/26/14 Admit 23 hours- CF Exacerbation Home on IV Meropenem, IV Vancomycin and IV Tobramycin - 10/28/14 Cipro & Bactrim x14 days - 11/14/14-11/15/2014 Admit CF Exacerbation Home on IV Meropenem, IV Vancomycin, and IV Tobramycin - 11/22/[address] --- IV continued until 12/07/2014 - 02/10/15 Home IVs CF Exacerbation IV Meropenem, IV Vancomycin, and IV Tobramycin - 08/23/2015 Home IVs CF Exacerbation IV Meropenem, IV Vancomycin, and IV Tobramycin ---- - 09/02/16 - Home IV's Larisa/tobra/vanco - 09/16/16 - Po prednisone added x5 days in addition to IV's --- - 07/14/17 - PO Cipro/Bactim - 08/27/17 - Home IV- Vanco/Larisa/Tobra - 01/19/18 - PO Cipro/Bactrim - 02/09/18 - PO Cipro/Zyvox - 02/23/18 - Home IV Larisa/Tobra/Vanco - 05/27/18 - Home IV Vanco/Tobra/Meropenem - 09/14/18 - PO Doxy - 10/19/18 - PO Cipro/Bactrim ----- - 12/28/18 - Home IV Larisa/Vanco/Tobra ------ - 03/19/21- PO Levaquin/Minocycline 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) Transfusion history Type 1 diabetes mellitus with hyperglycemia (HCC) PAST SURGICAL HISTORY Procedure Laterality Date PAST SURGICAL HISTORY OF splenal renal shunt to treat portal hypertension FAMILY HISTORY Problem Relation Age of Onset Hypertension Mother Breast Cancer Other other (hypercholesterolemia) Other other (heart disease in female family member before age 65) Other Social History Tobacco Use Smoking status: Never Smokeless tobacco: Never Vaping Use Vaping Use: Never used Substance Use Topics Alcohol use: No Drug use: No ALLERGIES: ALLERGIES Allergen Reactions Vancomycin Itching, Rash Gets Red Man syndrome and pt if not premedicated with benadryl prior to Vancomycin infusions. Cefoxitin Rash, Other: See Comments Severe abdominal pain, diarrhea, rash Severe Abdominal Pains CURRENT OUTPATIENT MEDICATIONS: ipratropium-albuterol (DUONEB) 0.5 mg-3 mg(2.5 mg base)/3 mL nebu^Inhale 3 mL as instructed twice daily.^Disp: ^Rfl: insulin glargine (BASAGLAR KWIKPEN U-100 INSULIN) 100 unit/mL (3 mL)^Inject 8 units subcutaneously at bedtime^Disp: 2 Each^Rfl: 3 ursodiol (ACTIGALL) 300 mg capsule^TAKE 1 CAP (300 MG) BY MOUTH 2 TIMES DAILY^Disp: ^Rfl: carvedilol (COREG) 6.25 mg tablet^Take 1 tablet by mouth twice daily with meals.^Disp: 60 tablet^Rfl: 1 aztreonam lysine (CAYSTON) 75 mg/mL nebulizer solution^Inhale 1 mL as instructed three times daily.28 days on 28 days off Send altera nebulizer with each shipment^Disp: 84 mL^Rfl: 6 Nebulizers^1 Each three times daily.^Disp: 1 Each^Rfl: 6 Nebulizers^1 Each three times daily.^Disp: 1 Each^Rfl: 0 amuffdjmsxn-hlvjmjojxo-dglhfamke (TRIKAFTA) 100-50-75 mg(d) /150 mg (n) tablet^Take 2 tablets by mouth every 48 hours. Take 2 orange tablets on even number days. Then take 1 tablet on Odd number days. Discard blue tablets. DO NOT crush, chew, or open.^Disp: ^Rfl: tranexamic acid (LYSTEDA) 650 mg tablet^Take 2 tablets by mouth three times daily for 5 days.^Disp:30 tablet^Rfl: 0 albuterol HFA (PROAIR HFA) 90 mcg/actuation inhaler^Inhale 2 Puffs as instructed every 4 hours as needed for wheezing/shortness of breath.^Disp: 3 Inhaler^Rfl: 3 VITAMIN D2 1,250 mcg (50,000 unit) capsule^Take 1 capsule by mouth two times a week.^Disp: 8 capsule^Rfl: 11 fluticasone-salmeterol (ADVAIR) 500-50 mcg/dose dsdv^Inhale 1 Puff as instructed twice daily.^Disp:180 Each^Rfl: 4 fluticasone (FLOVENT) 220 mcg/actuation inhaler^Inhale 1 Puff as instructed once daily as needed.^Disp: 1 Inhaler^Rfl: 11 vitamin K2 40 mcg tab^Take 1 tablet by mouth once daily.^Disp: 30 tablet^Rfl: 3 fluticasone (FLONASE) 50 mcg/actuation nasal spray^Use 2 Sprays in each nostril twice daily.^Disp: 16 g^Rfl: 11 cetirizine (ZYRTEC) 10 mg tablet^Take 1 tablet by mouth once daily.^Disp: 30 tablet^Rfl: 5 insulin lispro (HUMALOG KWIKPEN INSULIN) 100 unit/mL^Dose varies units with meals and sliding scale, using about 40 total units a day^Disp: 15 mL^Rfl: 6 Insulin Calvin, Disposable, (BD ULTRA-FINE YARON PEN NEEDLE) 32 gauge x 5/32 ^5x/day^Disp: 150 Each^Rfl: 11 glucagon (GLUCAGON EMERGENCY KIT, HUMAN,) 1 mg injection^use as directed if needed for SIGNIFICANT LOW BLOOD SUGAR EVENT^Disp: 1 Each^Rfl: 3 CREON 36,000-114,000- 180,000 unit capsule^Take 3 capsules by mouth. With every meal^Disp: ^Rfl: montelukast (SINGULAIR) 10 mg tablet^Take 1 tablet by mouth daily at bedtime.^Disp: 90 tablet^Rfl: 5 citalopram hydrobromide (CELEXA) 20 mg tablet^Take 1 tablet by mouth once daily.^Disp: 90 tablet^Rfl: 4 REVIEW OF SYSTEMS Review of Systems Constitutional: Negative for activity change, chills, diaphoresis, fatigue, fever and unexpected weight change. HENT: Positive for congestion, sinus pressure and tinnitus. Negative for trouble swallowing and voice change. Eyes: Negative. Respiratory: Positive for cough (non-productive). Negative for chest tightness, shortness of breathand wheezing. Cardiovascular: Negative for chest pain, palpitations and leg swelling. Gastrointestinal: Negative for blood in stool, constipation, diarrhea, nausea and vomiting. Endocrine: Negative. Genitourinary: Negative. Musculoskeletal: Negative. Skin: Negative. Allergic/Immunologic: Positive for environmental allergies. Hematological: Negative for adenopathy. Does not bruise/bleed easily. Psychiatric/Behavioral: Positive for dysphoric mood. Negative for suicidal ideas. The patient is nervous/anxious. PHYSICAL EXAMINATION: BP 153/103 Pulse 95 Temp 37.1 C (98.8 F) Ht 157.5 cm (5' 2.01 ) Wt 41.6 kg (91 lb 11.2 oz) SpO2 98% BMI 16.77 kg/m Physical Exam Vitals and nursing note reviewed. Constitutional: General: He is not in acute distress. Appearance: Normal appearance. He is not ill-appearing. HENT: Head: Normocephalic and atraumatic. Nose: Nose normal. Mouth/Throat: Mouth: Mucous membranes are moist. Eyes: Extraocular Movements: Extraocular movements intact. Conjunctiva/sclera: Conjunctivae normal. Pupils: Pupils are equal, round, and reactive to light. Cardiovascular: Rate and Rhythm: Normal rate and regular rhythm. Heart sounds: No murmur heard. Pulmonary: Effort: No respiratory distress. Breath sounds: No wheezing or rales. Abdominal: General: There is no distension. Palpations: Abdomen is soft. Tenderness: There is no abdominal tenderness. Musculoskeletal: General: No swelling. Normal range of motion. Cervical back: Normal range of motion. Skin: General: Skin is warm. Neurological: General: No focal deficit present. Mental Status: He is alert and oriented to person, place, and time. Cranial Nerves: No cranial nerve deficit. Psychiatric: Mood and Affect: Mood normal. Behavior: Behavior normal. Thought Content: Thought content normal. Judgment: Judgment normal. DATA: Diagnostic tests reviewed for today's visit were personally reviewed by me: Sputum culture results and Most recent labs and imaging results. Most recent EKG CT chest 07/28/2022 - personally reviewed IMPRESSION: Bilateral cystic bronchiectasis with air trapping and hyperinflation from chronic airway inflammation. Increased areas of peribronchial opacity and nodular consolidations as well as increased areas of cystic bronchiectasis with wall thickening and air-fluid levels presumably due to acute on chronic infection. CXR 07/27/2022 - personally reviewed RESULT: Lines, tubes, and devices: Left PICC line terminates in distal SVC. Lungs and pleura: Unchanged extensive bilateral cystic bronchiectasis and bronchial wall thickening likely representing cystic fibrosis. No new consolidations. No pneumothorax. Cardiomediastinal silhouette: Stable cardiomediastinal silhouette. Bones and soft tissues: Unremarkable. TTE 09/18/2020 FINDINGS: ANATOMIC RELATIONSHIPS - Left sided cardiac apex (levocardia). Normal atrial situs. Concordant atrioventricular alignment. Ventricular d-loop. Concordant ventriculoarterial connection. Normally related great vessels. VEINS AND ATRIA Atrial septum - A patent foramen ovale cannot be excluded. Left atrium - The atrium is normal in size. Right atrium - The atrium is normal in size. Systemic veins - Superior and inferior caval veins return to the right atrium. No persistent left superior caval vein is seen, there is no coronary sinus dilation. Pulmonary veins: Normal pulmonary venous return. Normal phasic pulmonary vein Doppler. A-V CANAL Tricuspid valve - The valve is structurally normal. - There is no evidence for stenosis. There is trivial regurgitation. Mitral valve - The valve is structurally normal. No echocardiographic evidence for prolapse. - There is no evidence for stenosis. There is no regurgitation. VENTRICLES Right ventricle - The cavity size is normal. Wall thickness is normal. Systolic function is qualitatively normal. Diastolic function appears normal. Ventricular septum - There is no evidence of a ventricular septal defect. There is no evidence of a ventricular septal defect. Left ventricle - The cavity size is normal. Wall thickness is normal. Systolic function is quantitatively normal. The endocardial fractional shortening (MM) is 37%. - Left ventricular diastolic function parameters are normal. CONOTRUNCUS Aortic valve - The valve is structurally normal. The valve is trileaflet. - There is no stenosis. There is no regurgitation. Pulmonic valve - The valve is structurally normal. - There is no stenosis. There is trivial regurgitation. Coronaries - The left main has a normal origin from the left sinus of Valsalva. The right coronary arises normally from the right sinus of Valsalva. No aneurysms or dilation is seen. GREAT ARTERIES Aorta - The arch is left-sided. Normal aortic arch branching pattern. - The aorta is without evidence of coarctation. Pulmonary arteries - The proximal branch pulmonary arteries are normal. - Main pulmonary artery: The artery is of normal size. - Left pulmonary artery: The artery is of normal size. - Right pulmonary artery: The artery is of normal size. Systemic-pulmonary shunts - No evidence of a patent ductus arteriosus. PERICARDIUM - There is no significant pericardial effusion. RUQ US 07/27/2022 IMPRESSION: CIRRHOTIC LIVER MORPHOLOGY. NO FOCAL HEPATIC LESION. FATTY REPLACEMENT OF THE PANCREAS COMPATIBLE WITH UNDERLYING CYSTIC FIBROSIS. MILD SPLENOMEGALY. DEXA 01/25/2019: COMPARISON: 08/29/2016 FINDINGS: Overall comparison to the prior exam is limited as software was updated in the interval. No obvious significant improvement or worsening. The mean BMD estimated from L1-L4 is 0.770 with a Z score of -2.9 (less than - 2.0 is abnormal). The mean BMD estimated from left hip is 0.7 with a Z score of -2.2, and estimated from the right hip is 0.723 with Z score of -2 (less than -2.0 is abnormal). LAST LAB RESULTS: ---Reviewed in [facility] Glucose (mg/dL) Date Value 08/09/2022 201 12/08/2015 113 Potassium Date Value 08/09/2022 4.9 mmol/L 12/08/2015 4.5 mEq/L Sodium Date Value 08/09/2022 132 mmol/L 12/08/2015 139 mEq/L Chloride Date Value 08/09/2022 101 mmol/L 12/08/2015 102 mEq/L CO2 Date Value 08/09/2022 25 mmol/L 12/08/2015 31 mEq/L Creatinine Date Value 08/09/2022 0.90 mg/dL 08/07/2022 1.04 MG/DL BUN (mg/dL) Date Value 08/09/2022 23 12/08/2015 16 Anion Gap Date Value 08/09/2022 6 mmol/L 12/08/2015 11 Calcium (mg/dL) Date Value 12/08/2015 9.3 Calcium, Total (mg/dL) Date Value 08/09/2022 8.5 Protein, Total (g/dL) Date Value 08/09/2022 7.6 12/08/2015 9.5 Albumin (g/dL) Date Value 08/09/2022 2.6 12/08/2015 3.4 Bilirubin, Total (mg/dL) Date Value 08/09/2022 0.7 12/08/2015 1.3 Alkaline Phosphatase (U/L) Date Value 08/09/2022 912 12/08/2015 807 AST (U/L) Date Value 08/09/2022 129 12/08/2015 110 ALT (U/L) Date Value 08/09/2022 69 12/08/2015 164 Vitamin D 25 Hydroxy (ng/mL) Date Value 07/27/2022 16.0 ] Hemoglobin A1C (%) Date Value 2022 8.6 02/12/2021 8.8 12/08/2015 8.3 Hemoglobin A1c (%) Date Value 05/22/2021 7.4 09/11/2020 6.4 12/30/2019 6.9 Hemoglobin A1C (POCT) (%) Date Value 12/24/2021 7.5 09/10/2021 7.4 05/22/2021 7.4 09/11/2020 6.4 HGBA1C (%) Date Value 07/30/2019 6.5 04/30/2019 6.6 01/25/2019 8.1 09/10/2018 8.2 05/29/2018 10.3 06/25/2016 7.0 SPIROMETRY: Reviewed in [facility] [address] , [place], [place] [address] Test Date: 2022-09-11 Pat Name: JAY BARBER Department: Room: 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 The inspired (FIVC) spirometry maneuver is less than the FVC maneuver. //KM IMPRESSION: Site[facility] ID: [id number] Name: JAY BARBER Visit Date: 09/11/2022 Doctor: [employer] Special Agent: Pamda Helm Age: 27 Date of : 1995 Gender: Male Race: White Height: 62.01 in Weight: 91.70 lbs BSA: 1.372 Diagnosis: Cystic Fibrosis Dyspnea: Cough: Wheeze: Tobacco Product: Years Smoked: Packs/Day: Years Quit: Medications: Comments: The exhaled (FVC) spirometry maneuver meets ATS/ERS acceptability and repeatability standards. The inspired (FIVC) spirometry maneuver is less than the FVC maneuver. 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 The inspired (FIVC) spirometry maneuver is [less than] the FVC maneuver. //KS IMPRESSION: Site[facility] ID: [id number] Name: JAY BARBER Visit Date: 2022 Doctor: [employer] Special Agent: Kaylen Daigle Age: 27 Date of : 1995 Gender: Male Race: White Height: 62.01 in Weight: 84.70 lbs BSA: 1.327 Diagnosis: Cystic Fibrosis Dyspnea: Cough: Wheeze: Tobacco Product: Years Smoked: Packs/Day: Years Quit: Medications: .Never Smoked Comments: The exhaled (FVC) spirometry maneuver meets ATS/ERS acceptability and repeatability standards. The inspired (FIVC) spirometry maneuver is [less than] the FVC maneuver. //KS Review Status: Not Reviewed PRE-BRONCH POST-BRONCH Pred LLN ULN Actual %Pred Actual %Chng SPIROMETRY FVC (L) 4.08 3.29 4.88 2.63 64 FEV1 (L) 3.45 2.76 4.12 0.92 26 FEV1/FVC 0.85 0.73 0.94 0.35 41 FEF25 (L/sec) 0.69 FEF50 (L/sec) 4.17 2.05 6.30 0.29 7 FEF75 (L/sec) 1.52 0.80 2.69 0.14 9 YSM12-83 (L/sec) 3.77 2.35 5.51 0.27 7 PEF L/s (L/sec) 8.55 6.73 10.37 4.52 52 FIVC (L) 2.46 FIF50 (L/sec) 3.47 PIF (L/sec) 3.84 Time (sec) 14.81 MACIEL (L) 0.02 FET PEF (sec) 0.04 Diagnostics: Office spirometry was reviewed. 2016 07/01/2016 158.0 2.87 1.34 47 68.9 37.4 Best 201609/17/2017 157.0 3.13 1.37 44 76.1 38.9 Best 201703/18/2018 157.0 2.55 1.08 42 62.1 30.7 201803/29/2019 157.0 2.49 1.10 44 60.8 31.3 06/15/2019 157.0 1.81 0.72 40 44.4 20.6 201901/03/2020 157.0 2.56 1.00 39 62.7 28.7 09/18/2020 156.0 43.3 2.66 1.06 40 66.2 31.1 202004/09/2021 156.0 41.5 2.80 1.06 38 70.0 31.1 07/09/2021 156.0 39.6 2.75 1.09 39 68.8 31.9 10/08/2021 157.0 39.2 2.71 1.03 38 66.8 30.1 202112/06/2021 157.0 38.6 2.52 1.01 40 62.1 29 01/14/2022 157.0 40.0 2.12 0.79 37 52.2 23.1 02/25/2022 152.0 39.4 2.76 1.11 40 73.6 34.6 MICROBIOLOGY: Reviewed MICROBIOLOGY SNAPSHOT Culture: 03/22/21- B.Cepacia Complex, B vietnamiensis -- 09/18/20- MRSA 07/03/20- MRSA 01/03/20- MRSA, B.Cepacia -- 10/11/19- MRSA, B.Cepacia, PSA (r) 06/15/19- MRSA, B.Cepacia, Ach. Xylo. 05/17/19- Staph, B.Cepacia 03/12/19- MRSA, B.Cepacia, Steno. Malt. 01/18/19- MRSA, Burkholderia cepacia complex , Js Albicans 01/11/19- MRSA, Steno. Malto., Js parapsilosis 01/04/19- MRSA 12/28/18- MSSA, Burkholderia cepacia complex *Colt cepacia complex:ssp B tawandaiensis- [facility] -- 11/05/18- MRSA 09/14/18- MRSA, Ach. Xylo. 07/27/18- MRSA, H.Flu- Trichosporon Mucoides 05/25/18- MSSA, PSA (r,) 01/19/18- MSSA, PSA (r,r) Trichosporon Mucoides -- 08/27/17- MRSA, PSA (s), Js parapsilosis 07/14/17- MRSA, PSA (s) 03/10/17- MRSA, PSA (s) 12/09/16- MRSA, PSA (s) -- 09/02/16- MRSA, PSA (s) Steno Malt. 07/01/16- MRSA, PSA (s) 04/24/16- MRSA 02/28/16- MRSA, Steno, PSA (r) AFB: (On Zithromax) Held +NTM 03/22/21- neg 09/18/20- neg 10/11/19- neg 05/17/19- neg 11/05/18- neg 05/25/18- neg 01/19/18- neg 07/14/17- neg 03/06/17- neg 12/09/16- neg 09/02/16- Mycobacterium avium-intracellulare complex 02/28/16- neg Fungal: 03/22/21- Js albicans 07/03/20- No fungi 05/17/19- Js parapsilosis 06/11/18- Js parapsilosis, Trichosporon Mucoides, Aspergillus 05/25/18- Js parapsilosis 01/19/18- Trichosporon Mucoides 03/10/17- Js parapsilosis, Aspergillus sp. 02/28/16- Js albicans, js parapsilosis Written and verbal health teaching given to patient, patient verbalizes understanding and agrees with treatment plan. [facility] History of Present illness Narrative* Padma Helm RRT - 09/11/2022 8:46 AM EDT PULM FUNCTION SMARTBLOCK: Provider: She Pete DO Spirometry: 1 documented in this encounterOhio[facility]09-28-2022 Miscellaneous Notes* Telephone Encounter - Nell Lozano - 08/28/2022 2:03 PM EDT I spoke to the pharmacy and advised them that the patient is aware of how they should be taking Trikafta while on Paxlovid. I also informed them that we will not be adjusting the Trikafta order. Pharmacy verbalized understanding. * Telephone Encounter - Karuna Dumont RN - 08/28/2022 1:25 PM EDT Pharmacy calling with drug interaction, please call them back, they need clarification and dose adjustment on paxlovid vs trikafta. Call pharmacist directly at [phone] documented in this encounterOhio[facility]26-[facility]22 Miscellaneous Notes* Telephone Encounter - Sally Schneider APRN.ARIAS - 08/26/2022 10:09 AM EDT FACT SHEET FOR PATIENTS, PARENTS, AND CAREGIVERS EMERGENCY USE AUTHORIZATION (EUA) OF PAXLOVID FOR CORONAVIRUS DISEASE 2019 (COVID-19) You are being given this Fact Sheet because your healthcare provider believes it is necessary to provide you with PAXLOVID for the treatment of btvm-bc-zbtvtnnv coronavirus disease (COVID-19) caused by the SARS-CoV-2 virus. This Fact Sheet contains information to help you understand the risks and benefits of taking the PAXLOVID you have received or may receive. The U.S. Food and Drug Administration (FDA) has issued an Emergency Use Authorization (EUA) to makePAXLOVID available during the COVID-19 pandemic (for more details about an EUA please see What is an Emergency Use Authorization? at the end of this document). PAXLOVID is not an FDA-approved medicine in the [place]. Read this Fact Sheet for information about PAXLOVID. Talk to your healthcareprovider about your options or if you have any questions. It is your choice to take PAXLOVID. What is COVID-19? COVID-19 is caused by a virus called a coronavirus. You can get COVID-19 through close contact withanother person who has the virus. COVID-19 illnesses have ranged from very jlrx-pj-xrphpb, including illness resulting in . While information so far suggests that most COVID-19 illness is mild, serious illness can happen and maycause some of your other medical conditions to become worse. Older people and people of all ages with severe, long lasting (chronic) medical conditions like heart disease, lung disease, and diabetes,for example seem to be at higher risk of being hospitalized for COVID-19. What is PAXLOVID? PAXLOVID is an investigational medicine used to treat buqr-eg-daqxlaii COVID-19 in adults and children [12 years of age and older weighing at least 88 pounds (40 kg)] with positive results of direct SARS-CoV-2 viral testing, and who are at high risk for progression to severe COVID-19, including hospitalization or . PAXLOVID is investigational because it is still being studied. There is limited information about the safety and effectiveness of using PAXLOVID to treat people with qquq-bp-mnoxfleq COVID-19. The FDA has authorized the emergency use of PAXLOVID for the treatment of izep-gj-onskpodg COVID-19in adults and children [12 years of age and older weighing at least 88 pounds (40 kg)] with a positive test for the virus that causes COVID-19, and who are at high risk for progression to severe COVID-19, including hospitalization or , under an EUA. 1 Revised: 15 February 2022 What should I tell my healthcare provider before I take PAXLOVID? Tell your healthcare provider if you: Have any allergies Have liver or kidney disease Are or plan to become Are a child Have any serious illnesses Tell your healthcare provider about all the medicines you take, including prescription and nzle-bvs-qfdaznz medicines, vitamins, and herbal supplements. Some medicines may interact with PAXLOVID and may cause serious side effects. Keep a list of your medicines to show your healthcare provider and pharmacist when you get a new medicine. You can ask your healthcare provider or pharmacist for a list of medicines that interact with PAXLOVID. Do not start taking a new medicine without telling your healthcare provider. Your healthcare provider can tell you if it is safe to take PAXLOVID with other medicines. Tell your healthcare provider if you are taking combined hormonal contraceptive. PAXLOVID may affect how your control pills work. Females who are able to become should use another effective alternative form of contraception or an additional barrier method of contraception. Talk to your healthcare provider if you have any questions about contraceptive methods thatmight be right for you. How do I take PAXLOVID? PAXLOVID consists of 2 medicines: nirmatrelvir and ritonavir. Take 2 pink tablets of nirmatrelvir with 1 white tablet of ritonavir by mouth 2 times each day (in the morning and in the evening) for 5 days. For each dose, take all 3 tablets at the same time. If you have kidney disease, talk to your healthcare provider. You may need a different dose. Swallow the tablets whole. Do not chew, break, or crush the tablets. Take PAXLOVID with or without food. Do not stop taking PAXLOVID without talking to your healthcare provider, even if you feel better. If you miss a dose of PAXLOVID within 8 hours of the time it is usually taken, take it as soon as you remember. If you miss a dose by more than 8 hours, skip the missed dose and take the next dose atyour regular time. Do not take 2 doses of PAXLOVID at the same time. If you take too much PAXLOVID, call your healthcare provider or go to the nearest hospital emergency room right away. If you are taking a ritonavir-or cobicistat-containing medicine to treat hepatitis C or Human Immunodeficiency Virus (HIV), you should continue to take your medicine as prescribed by your healthcare provider. Talk to your healthcare provider if you do not feel better or if you feel worse after 5 days. Who should generally not take PAXLOVID? Do not take PAXLOVID if: You are allergic to nirmatrelvir, ritonavir, or any of the ingredients in PAXLOVID You are taking any of the following medicines: Alfuzosin Pethidine, propoxyphene Ranolazine Amiodarone, dronedarone, flecainide, propafenone, quinidine Colchicine Lurasidone, pimozide, clozapine Dihydroergotamine, ergotamine, methylergonovine Lovastatin, simvastatin Sildenafil (Revatio ) for pulmonary arterial hypertension (PAH) Triazolam, oral midazolam Apalutamide Carbamazepine, phenobarbital, phenytoin Rifampin Caio s Wort (hypericum perforatum) Taking PAXLOVID with these medicines may cause serious or life-threatening side effects or affect how PAXLOVID works. These are not the only medicines that may cause serious side effects if taken with PAXLOVID. PAXLOVID may increase or decrease the levels of multiple other medicines. It is very important to tell your healthcare provider about all of the medicines you are taking because additional laboratory tests or changes in the dose of your other medicines may be necessary while you are taking PAXLOVID. Your healthcare provider may also tell you about specific symptoms to watch out for that may indicate that you need to stop or decrease the dose of some of your other medicines. What are the important possible side effects of PAXLOVID? Possible side effects of PAXLOVID are: Allergic Reactions. Allergic reactions can happen in people taking PAXLOVID, even after only 1 dose. Stop taking PAXLOVID and call your healthcare provider right away if you get any of the following symptoms of an allergic reaction: hives trouble swallowing or breathing swelling of the mouth, lips, or face throat tightness hoarseness skin rash Liver Problems. Tell your healthcare provider right away if you have any of these signs and symptoms of liver problems: loss of appetite, yellowing of your skin and the whites of eyes (jaundice), dark-colored urine, pale colored stools and itchy skin, stomach area (abdominal) pain. Resistance to HIV Medicines. If you have untreated HIV infection, PAXLOVID may lead to some HIV medicines not working as well in the future. Other possible side effects include: altered sense of taste diarrhea high blood pressure muscle aches These are not all the possible side effects of PAXLOVID. Not many people have taken PAXLOVID. Serious and unexpected side effects may happen. PAXLOVID is still being studied, so it is possible that all of the risks are not known at this time. What other treatment choices are there? Veklury (remdesivir) is FDA-approved for the treatment of nckh-wt-rlluosaw COVID-19 in certain adults and children. Talk with your doctor to see if Veklury is appropriate for you. Like PAXLOVID, FDA may also allow for the emergency use of other medicines to treat people with COVID-19. Go to https://www.fda.gov/rznvwfesy-kuskqkjxojgt-rhhagsfqykx/lrd-kusmh-hjalftjfsd-and- policy-framework/kjnwfllxz-xzk-qcxgezscsclav for information on the emergency use of other medicines that are authorized by FDA to treat people with COVID-19. Your healthcare provider may talk with you aboutclinical trials for which you may be eligible. It is your choice to be treated or not to be treated with PAXLOVID. Should you decide not to receive it or for your child not to receive it, it will not change your standard medical care. What if I am or ? There is snowboarder treating women or mothers with PAXLOVID. For a motherand unborn baby, the benefit of taking PAXLOVID may be greater than the risk from the treatment. Ifyou are , discuss your options and specific situation with your healthcare provider. It is recommended that you use effective barrier contraception or do not have sexual activity whiletaking PAXLOVID. If you are , discuss your options and specific situation with your healthcare provider. How do I report side effects with PAXLOVID? Contact your healthcare provider if you have any side effects that bother you or do not go away. Report side effects to [employer] at www.[employer].gov/medTripConnecttch or call 1-907-IOS7893 or you can reportside effects to [employer] at the contact information provided below. Website Fax number Telephone number [employer] How should I store PAXLOVID? Store PAXLOVID tablets at room temperature, between 68?F to 77?F (20?C to 25?C). How can I learn more about COVID-19? Ask your healthcare provider. Visit https://www.cdc.gov/COVID19. Contact your local or state public health department. What is an Emergency Use Authorization (EUA)? The [place] FDA has made PAXLOVID available under an emergency access mechanism called an Emergency Use Authorization (EUA). The EUA is supported by a Tax Collector of Health and Human Service (HHS) declaration that circumstances exist to justify the emergency use of drugs and biological productsduring the COVID-19 pandemic. PAXLOVID for the treatment of shoc-mu-dkdzeutg COVID-19 in adults and children [12 years of age andolder weighing at least 88 pounds (40 kg)] with positive results of direct SARS-CoV-2 viral testing, and who are at high risk for progression to severe COVID-19, including hospitalization or , has not undergone the same type of review as an FDA-approved product. In issuing an EUA under the COVID-19 public health emergency, the FDA has determined, among other things, that based on the total amount of scientific evidence available including data from adequate and well-controlled clinical trials, if available, it is reasonable to believe that the product may be effective for diagnosing, treating, or preventing COVID-19, or a serious or life-threatening disease or condition caused by COVID-19; that the known and potential benefits of the product, when used to diagnose, treat, or prevent such disease or condition, outweigh the known and potential risks of such product; and that there are no adequate, approved, and available alternatives. All of these criteria must be met to allow for the product to be used in the treatment of patients during the COVID-19 pandemic. The EUA for PAXLOVID is in effect for the duration of the COVID-19 declaration justifying emergency use of this product, unless terminated or revoked (after which the products may no longer be used under the EUA). Additional Information For general questions, visit the website or call the telephone number provided below. Website Telephone number [place] [employer] ([phone]) You can also go to www.[employer] or call for more information. Pfizer Distributed by [employer] [place] [address] LAB-1494-2.1 Revised: 15 February 2022 documented in this encounterOhio[facility]09-26-2022 History of Present illness Narrative* Sally Schneider APRN.CNP - 08/26/2022 10:08 AM EDT Nirmatrelvir/Ritonavir (Paxlovid) Eligibility and Patient Discussion [facility] Formulary Restriction Criteria: Adult outpatients 18 years and older with ALL of the following: [] Patient has positive SARS-COV-2 viral test (PCR or antigen test) during current illness [] Patient has symptoms for 5 days or less [] Not requiring hospitalization at any time for management of COVID-19 [] Not requiring supplemental oxygen or a change in baseline supplemental oxygen[] Not utilized forpre-exposure or post-exposure prophylaxis for prevention of COVID-19 [] Patient does not have severe renal impairment (eGFR < 30 mL/min) or severe hepatic impairment(Child-Cancino Class C) [] Meeting at least one of the criteria for high risk of progression to severe COVID-19: [] Age over 65 years [] Cancer [] Chronic kidney disease [] Chronic liver disease [] Chronic lung diseases, including cystic fibrosis [] Dementia or other neurological conditions [] Diabetes (type 1 or type 2) [] Disabilities, including Down syndrome and neurodevelopmental disorders [] Heart conditions [] HIV infection [] Immunocompromised state [] Mental health conditions [] Medical related technological dependence (tracheostomy, gastrostomy, or positive pressure ventilation (not related to COVID) [] Overweight and obesity (BMI greater or equal to 25 for adults) [] Physical inactivity [] [] Sickle cell disease or thalassemia [] Smoking, current or former [] Solid organ or blood stem cell transplant [] Stroke or cerebrovascular disease [] Substance use disorders [] Tuberculosis [] People from racial and ethnic minority groups Criteria above are met: documented in this encounterOhiohealth [facility] Hospital09-26-2022 Instructions* Patient Instructions* Sally Schneider APRN.CNP - 08/26/2022 10:08 AM EDT FACT SHEET FOR PATIENTS, PARENTS, AND CAREGIVERS EMERGENCY USE AUTHORIZATION (EUA) OF PAXLOVID FOR CORONAVIRUS DISEASE 2019 (COVID-19) You are being given this Fact Sheet because your healthcare provider believes it is necessary to provide you with PAXLOVID for the treatment of cehp-tc-mmjcknrw coronavirus disease (COVID-19) caused by the SARS-CoV-2 virus. This Fact Sheet contains information to help you understand the risks and benefits of taking the PAXLOVID you have received or may receive. The U.S. Food and Drug Administration (FDA) has issued an Emergency Use Authorization (EUA) to makePAXLOVID available during the COVID-19 pandemic (for more details about an EUA please see What is an Emergency Use Authorization? at the end of this document). PAXLOVID is not an FDA-approved medicine in the [place]. Read this Fact Sheet for information about PAXLOVID. Talk to your healthcareprovider about your options or if you have any questions. It is your choice to take PAXLOVID. What is COVID-19? COVID-19 is caused by a virus called a coronavirus. You can get COVID-19 through close contact withanother person who has the virus. COVID-19 illnesses have ranged from very grhn-bv-qaehds, including illness resulting in . While information so far suggests that most COVID-19 illness is mild, serious illness can happen and maycause some of your other medical conditions to become worse. Older people and people of all ages with severe, long lasting (chronic) medical conditions like heart disease, lung disease, and diabetes,for example seem to be at higher risk of being hospitalized for COVID-19. What is PAXLOVID? PAXLOVID is an investigational medicine used to treat tgnv-vi-rmrixcwk COVID-19 in adults and children [12 years of age and older weighing at least 88 pounds (40 kg)] with positive results of direct SARS-CoV-2 viral testing, and who are at high risk for progression to severe COVID-19, including hospitalization or . PAXLOVID is investigational because it is still being studied. There is limited information about the safety and effectiveness of using PAXLOVID to treat people with vduu-ah-ilvjpqnt COVID-19. The FDA has authorized the emergency use of PAXLOVID for the treatment of zzdl-la-dxnmrdeo COVID-19in adults and children [12 years of age and older weighing at least 88 pounds (40 kg)] with a positive test for the virus that causes COVID-19, and who are at high risk for progression to severe COVID-19, including hospitalization or , under an EUA. 1 Revised: 15 February 2022 What should I tell my healthcare provider before I take PAXLOVID? Tell your healthcare provider if you: Have any allergies Have liver or kidney disease Are or plan to become Are a child Have any serious illnesses Tell your healthcare provider about all the medicines you take, including prescription and kvxu-bhe-cnaihkw medicines, vitamins, and herbal supplements. Some medicines may interact with PAXLOVID and may cause serious side effects. Keep a list of your medicines to show your healthcare provider and pharmacist when you get a new medicine. You can ask your healthcare provider or pharmacist for a list of medicines that interact with PAXLOVID. Do not start taking a new medicine without telling your healthcare provider. Your healthcare provider can tell you if it is safe to take PAXLOVID with other medicines. Tell your healthcare provider if you are taking combined hormonal contraceptive. PAXLOVID may affect how your control pills work. Females who are able to become should use another effective alternative form of contraception or an additional barrier method of contraception. Talk to your healthcare provider if you have any questions about contraceptive methods thatmight be right for you. How do I take PAXLOVID? PAXLOVID consists of 2 medicines: nirmatrelvir and ritonavir. Take 2 pink tablets of nirmatrelvir with 1 white tablet of ritonavir by mouth 2 times each day (in the morning and in the evening) for 5 days. For each dose, take all 3 tablets at the same time. If you have kidney disease, talk to your healthcare provider. You may need a different dose. Swallow the tablets whole. Do not chew, break, or crush the tablets. Take PAXLOVID with or without food. Do not stop taking PAXLOVID without talking to your healthcare provider, even if you feel better. If you miss a dose of PAXLOVID within 8 hours of the time it is usually taken, take it as soon as you remember. If you miss a dose by more than 8 hours, skip the missed dose and take the next dose atyour regular time. Do not take 2 doses of PAXLOVID at the same time. If you take too much PAXLOVID, call your healthcare provider or go to the nearest hospital emergency room right away. If you are taking a ritonavir-or cobicistat-containing medicine to treat hepatitis C or Human Immunodeficiency Virus (HIV), you should continue to take your medicine as prescribed by your healthcare provider. Talk to your healthcare provider if you do not feel better or if you feel worse after 5 days. Who should generally not take PAXLOVID? Do not take PAXLOVID if: You are allergic to nirmatrelvir, ritonavir, or any of the ingredients in PAXLOVID You are taking any of the following medicines: Alfuzosin Pethidine, propoxyphene Ranolazine Amiodarone, dronedarone, flecainide, propafenone, quinidine Colchicine Lurasidone, pimozide, clozapine Dihydroergotamine, ergotamine, methylergonovine Lovastatin, simvastatin Sildenafil (Revatio ) for pulmonary arterial hypertension (PAH) Triazolam, oral midazolam Apalutamide Carbamazepine, phenobarbital, phenytoin Rifampin [place] s Wort (hypericum perforatum) Taking PAXLOVID with these medicines may cause serious or life-threatening side effects or affect how PAXLOVID works. These are not the only medicines that may cause serious side effects if taken with PAXLOVID. PAXLOVID may increase or decrease the levels of multiple other medicines. It is very important to tell your healthcare provider about all of the medicines you are taking because additional laboratory tests or changes in the dose of your other medicines may be necessary while you are taking PAXLOVID. Your healthcare provider may also tell you about specific symptoms to watch out for that may indicate that you need to stop or decrease the dose of some of your other medicines. What are the important possible side effects of PAXLOVID? Possible side effects of PAXLOVID are: Allergic Reactions. Allergic reactions can happen in people taking PAXLOVID, even after only 1 dose. Stop taking PAXLOVID and call your healthcare provider right away if you get any of the following symptoms of an allergic reaction: hives trouble swallowing or breathing swelling of the mouth, lips, or face throat tightness hoarseness skin rash Liver Problems. Tell your healthcare provider right away if you have any of these signs and symptoms of liver problems: loss of appetite, yellowing of your skin and the whites of eyes (jaundice), dark-colored urine, pale colored stools and itchy skin, stomach area (abdominal) pain. Resistance to HIV Medicines. If you have untreated HIV infection, PAXLOVID may lead to some HIV medicines not working as well in the future. Other possible side effects include: altered sense of taste diarrhea high blood pressure muscle aches These are not all the possible side effects of PAXLOVID. Not many people have taken PAXLOVID. Serious and unexpected side effects may happen. PAXLOVID is still being studied, so it is possible that all of the risks are not known at this time. What other treatment choices are there? Veklury (remdesivir) is FDA-approved for the treatment of aexq-so-hmwqwmip COVID-19 in certain adults and children. Talk with your doctor to see if Veklury is appropriate for you. Like PAXLOVID, FDA may also allow for the emergency use of other medicines to treat people with COVID-19. Go to https://www.fda.gov/zmmrohtao-pjaiarbvchns-pepqqpdtysa/pte-ulumw-bkzjthhsry-and- policy-framework/qdifwdgpb-cbl-btdogsldhhaqz for information on the emergency use of other medicines that are authorized by FDA to treat people with COVID-19. Your healthcare provider may talk with you aboutclinical trials for which you may be eligible. It is your choice to be treated or not to be treated with PAXLOVID. Should you decide not to receive it or for your child not to receive it, it will not change your standard medical care. What if I am or ? There is snowboarder treating women or mothers with PAXLOVID. For a motherand unborn baby, the benefit of taking PAXLOVID may be greater than the risk from the treatment. Ifyou are , discuss your options and specific situation with your healthcare provider. It is recommended that you use effective barrier contraception or do not have sexual activity whiletaking PAXLOVID. If you are , discuss your options and specific situation with your healthcare provider. How do I report side effects with PAXLOVID? Contact your healthcare provider if you have any side effects that bother you or do not go away. Report side effects to FDA MedWatch at www.fda.gov/medwatch or call 2-322-FOZ2496 or you can reportside effects to [employer]. at the contact information provided below. Website Fax number Telephone number www.[employer] How should I store PAXLOVID? Store PAXLOVID tablets at room temperature, between 68?F to 77?F (20?C to 25?C). How can I learn more about COVID-19? Ask your healthcare provider. Visit https://www.cdc.gov/COVID19. Contact your local or state public health department. What is an Emergency Use Authorization (EUA)? The [place] FDA has made PAXLOVID available under an emergency access mechanism called an Emergency Use Authorization (EUA). The EUA is supported by a [place] of Health and Human Service (HHS) declaration that circumstances exist to justify the emergency use of drugs and biological productsduring the COVID-19 pandemic. PAXLOVID for the treatment of adfi-zl-vphwhaqx COVID-19 in adults and children [12 years of age andolder weighing at least 88 pounds (40 kg)] with positive results of direct SARS-CoV-2 viral testing, and who are at high risk for progression to severe COVID-19, including hospitalization or , has not undergone the same type of review as an FDA-approved product. In issuing an EUA under the COVID-19 public health emergency, the FDA has determined, among other things, that based on the total amount of scientific evidence available including data from adequate and well-controlled clinical trials, if available, it is reasonable to believe that the product may be effective for diagnosing, treating, or preventing COVID-19, or a serious or life-threatening disease or condition caused by COVID-19; that the known and potential benefits of the product, when used to diagnose, treat, or prevent such disease or condition, outweigh the known and potential risks of such product; and that there are no adequate, approved, and available alternatives. All of these criteria must be met to allow for the product to be used in the treatment of patients during the COVID-19 pandemic. The EUA for PAXLOVID is in effect for the duration of the COVID-19 declaration justifying emergency use of this product, unless terminated or revoked (after which the products may no longer be used under the EUA). Additional Information For general questions, visit the website or call the telephone number provided below. Website Telephone number www.[email or web address] ([phone]-[phone]) You can also go to [email or web address] or call for more information. Pfizer Distributed by [employer] [place] [address] LAB-1494-2.1 Revised: 15 February 2022 documented in this encounterOhio[facility]09-09-2022 Nurse Note* Fern Watts Adm Asst I - 08/09/2022 12:[address]Miranda jay copat. Picc line pulled in pulmonary clinic today. Message sent to Pharmacy. Fern Watts Adm Asst I documented in this encounterOhio[facility]09-09-2022 Instructions* Patient Instructions* Sally Schneider APRN.CNP - 08/09/2022 10:47 AM EDT STop IV abx today CMP drawn today will follow up results I will check on the inhaled cayston today Follow up with Dr Pete 09/11/22 at 9 am PFT 8:45 am [facility] documented in this encounterOhiohealth [facility]09-09-2022 History of Present illness Narrative* Nitin Oden RRT - 08/09/2022 10:17 AM EDT PEDS PULM: Provider: Sally Schneider APRN.CNP Spirometry: 1 System: [id number] documented in this encounterOhiohealth [facility] Hospital09-09-2022 History of Present illness Narrative* Sally Schneider APRN.CNP - 08/09/2022 9:44 AM EDT Images from the original note were not included. PULMONARY MEDICINE CYSTIC FIBROSIS FOLLOW UP Home IV Antibiotics Patient Name: Jay Barber PRIMARY CARE PHYSICIAN: No primary care provider on file. Portions of documentation from Dr Pete's previous visit of 2022 was copied and pasted, documentation has been reviewed and edited as necessary for today's visit. ASSESSMENT AND PLAN: Jay Barber is a 27 year old male, here for follow-up of Cystic Fibrosis 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 ([birth year]/1994 - report given today by patient - will scan into chart. 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 Currently on Home IV abx therapy targeting respiratory tract infection with pseudomonas, MRSA and B. cepacia. Antibiotic Regimen and Monitoring ---Start Date: 07/26/2022 inpatient through 07/31/2022; Home IVs 08/01/2022-current ---The patient is being treated with Intravenous Vancomycin and meropenem today is day 15. ---inhaled cayston. ---Side effects from IV antibiotic therapy include none ---Lab monitoring is being done and -------Labs in [facility] ---No significant changes in creatinine, LFTs, or blood counts. ---No issues with IV access Lung Function ---Baseline FEV1 is 26 % predicted. ---Pre-treatment FEV1 was 26 % predicted. ---FEV1 today is 25 % predicted. Anti-inflammatory therapy and Airway obstruction ---Patient doing acapella 1 times per day ---Inhaled cayston when you get it from pharmacy ---Exercise regimen: walking and weight lifting 3 hours weekly Nutritional Interventions ---Weight is stable ---Supplements ensure and CIB 2/day Stopping IV antibiotics. ---Reviewed patients chronic outpatient regimen and changes include ; none ---PICC line pulled in clinic today ---The plan for inhaled abx is inhaled cayston X 1 month and as needed. We discussed the following today: ---Feeling much better. Stopping IV antibiotics today ---Will get a CMP today ---Will defer CF respiratory culture until next visit ---We will follow up on inhaled cayston; when you get it do one month ---Tranexamic acid was filled, will keep on hand and start if hemoptysis develops ---Follow up with Dr Pete on FriSeptember 11 9:00 am Andrea Stuart with [facility] baseline 1. CYSTIC FIBROSIS PULMONARY DISEASE AND BRONCHIECTASIS Stage of bronchiectasis: advanced FEV1% predicted today: 25% Complicated by chronic respiratory tract infection with B.cepacia, PSA and MRSA Chronic maintenance regimen: CFTR modulators: Trikafta adjusted dosing for liver disease. Takes 2 orange pills on even days and 1 orange on odd days. No Blue.. Pulmozyme: not on Discontinued after starting trikafta Hypertonic saline: No Chronic Azithromycin (anti-inflammatory): No stopped d/t NTM Inhaled Abx: cayston as needed Nebulized short-acting bronchodilator: albuterol MDI PEP device: acapella Oral prednisone: as needed Pulm rehab: N/A Supplemental oxygen use: no Exercise and minutes per week: walking and weights 3 hours per week Recommended ORDER OF AIRWAY CLEARANCE: Albuterol, Hypertonic, VEST (with hypertonic), pulmozyme, Inhaled antibiotics, Inhaled corticosteroids 1. 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[facility] in 2019), MRSA Chronic maintenance regimen: CFTR modulators: Trikafta - on adjusted dosing due to Cirrhosis - reports taking 2 orange pills on even days of the month and 1 orange pill on odd days of the month, No blue pills - will f/up LFTs today Pulmozyme: has at home but not currently using Hypertonic saline: has at home but not currenltly using Chronic Azithromycin (anti-inflammatory): No (on hold due to prior NTM) Inhaled Abx: Ibuprofen: No Nebulized short-acting bronchodilator: albuterol as needed Nebulized other: PEP device: VEST: not currently using ICS: Advair 500/50mg 2 puffs BID Oral prednisone: as needed Pulm rehab: not currently using Supplemental oxygen use: no 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 We discussed [facility] meeting transplant team, would like to hold off for now ---Referred for lung transplantation: not at this time per patient preference CHRONIC RESPIRATORY TRACT PSEUDOMONAS AND BURKHOLDERIA ---Mucoid phenotype ---Inhaled antibiotic: previously used cayston montly alternating with MUKESH podhaler - not currently doing ---Not on chronic azithromycin due to NTM ---Oral antibiotic that patient responds to: Cipro and Bactrim ---IV abx that patient responds to: IV TOBRAMYCIN, meropenem, vancomycin CYSTIC FIBROSIS PANCREATIC INSUFFICIENCY --- No generic enzymes, ever. ---Creon 36,000, 3-4 BEFORE meals AND 2-3 BEFORE snacks ---Fat soluble supplemental vitamins: Vitamin K 40 mcg daily ---CF Vitamins: MVI 2 daily ---Vitamin D2 50,000 weekly Vitamin D 25 Hydroxy (ng/mL) Date Value 2022 14.7 CYSTIC FIBROSIS LIVER DISEASE --- cirrhosis complicated by esophageal varices, portal hypertension --- actigall stopped - pending labs will restart --- last RUQ US in 08/2020 --- last EGD ? - will need to obtain recocrds --- on mephyton 5mg MWF CHRONIC PANSINUSITIS Sinuses can be a reservoir of bacterial infection and contribute to recurrent lower respiratory tract infections, especially in patients infected with Pseudomonas Symptoms are worse Nasal polyps - unknown? ---Antihistamine: restart zyrtec ---Nasal steroid: restart flonase ---Montelukast: can add next ---If not improving with restart sinus medications - will obtain CT sinus and referral to ENT ---Referral to ENT for surgical eval. Appt [phone]. CYSTIC FIBROSIS RELATED DIABETES ---The standard medical therapy for CFRD is subcutaneous insulin (oral diabetic agents should not be used); ---Patient currently on insulin therapy. ---Self monitored blood glucose 3 times per day ---Most recent hgA1c noted. ---Following with Dr. Francis Ramirez at [facility] Prior Invasive Pulmonary Aspergillus infection/Trichosporonosis - treated with voriconazole by ID cosmetic consultant Dr. Burke France in 2020 for 1 year Depression/Anxiety ---continues on celexa 20 mg PO daily ---will have him see SW with next visit HTN ---Coreg 6.25 mg (had hyperkalemia with SEVERINO-I) Proteinuria --- previously seen by Dr. Ahuja in nephrology Return to clinic in 5 weeks with spirometry baseline. 09/11/22 at 9 am Sally Schneider [facility] [place] CHIEF COMPLAINT: Cystic Fibrosis HISTORY OF PRESENT ILLNESS: Jay Barber is a 27 year old male, here for follow-up of Cystic Fibrosis Home IV abx therapy; Side effects from IV abx therapy: none INTERVAL HISTORY RESPIRATORY: Cough: rarely Paroxysms: no Sputum: none Hemoptysis: no Chest Congestion: no Dyspnea: none Chest Pain: no Night sweats: no Fever: no Fatigue: mild Wheezing: no Sinuses: stable GASTROINTESTINAL: GE Reflux: No Appetite: Great much improved. Abdominal Pain:no Bowel Movement: 4-5/day,loose due to IV antibiotics Diet (details): high calorie/high fat Supplements: ensure and CIB Vomiting: no Prolapse: None TINNITUS: yes JOINT/BACK PAIN: no/no Anxiety/Depression: no/no ENDOCRINE CFRD: present Without polyuria, polydipsia, nocturia or hypoglycemic symptoms 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) Liver disease care home (current) use of insulin (HCC) Transfusion history Type 1 diabetes mellitus with hyperglycemia (HCC) PAST SURGICAL HISTORY Procedure Laterality Date PAST SURGICAL HISTORY OF splenal renal shunt to treat portal hypertension FAMILY HISTORY Problem Relation Age of Onset Hypertension Mother Breast Cancer Other other (hypercholesterolemia) Other other (heart disease in female family member before age 65) Other Social History Tobacco Use Smoking status: Never Smokeless tobacco: Never Vaping Use Vaping Use: Never used Substance Use Topics Alcohol use: No Drug use: No ALLERGIES: ALLERGIES Allergen Reactions Vancomycin Itching, Rash Gets Red Man syndrome and pt if not premedicated with benadryl prior to Vancomycin infusions. Cefoxitin Rash, Other: See Comments Severe abdominal pain, diarrhea, rash Severe Abdominal Pains CURRENT OUTPATIENT MEDICATIONS: carvedilol (COREG) 6.25 mg tablet^Take 1 tablet by mouth twice daily with meals.^Disp: 60 tablet^Rfl: 1 aztreonam lysine (CAYSTON) 75 mg/mL nebulizer solution^Inhale 1 mL as instructed three times daily.28 days on 28 days off Send altera nebulizer with each shipment^Disp: 84 mL^Rfl: 6 Nebulizers^1 Each three times daily.^Disp: 1 Each^Rfl: 6 Nebulizers^1 Each three times daily.^Disp: 1 Each^Rfl: 0 vvodwmgvmmx-wmnwxprmla-afsfmjfsw (TRIKAFTA) 100-50-75 mg(d) /150 mg (n) tablet^Take 2 tablets by mouth every 48 hours. Take 2 orange tablets on even number days. Then take 1 tablet on Odd number days. Discard blue tablets. DO NOT crush, chew, or open.^Disp: ^Rfl: tranexamic acid (LYSTEDA) 650 mg tablet^Take 2 tablets by mouth three times daily for 5 days.^Disp:30 tablet^Rfl: 0 albuterol HFA (PROAIR HFA) 90 mcg/actuation inhaler^Inhale 2 Puffs as instructed every 4 hours as needed for wheezing/shortness of breath.^Disp: 3 Inhaler^Rfl: 3 VITAMIN D2 1,250 mcg (50,000 unit) capsule^Take 1 capsule by mouth two times a week.^Disp: 8 capsule^Rfl: 11 citalopram hydrobromide (CELEXA) 10 mg tablet^Take 20 mg by mouth.^Disp: ^Rfl: insulin detemir U-100 (LEVEMIR) 100 unit/mL injection^Inject 8 Units subcutaneously.^Disp: ^Rfl: fluticasone-salmeterol (ADVAIR) 500-50 mcg/dose dsdv^Inhale 1 Puff as instructed twice daily.^Disp:180 Each^Rfl: 4 fluticasone (FLOVENT) 220 mcg/actuation inhaler^Inhale 1 Puff as instructed once daily as needed.^Disp: 1 Inhaler^Rfl: 11 vitamin K2 40 mcg tab^Take 1 tablet by mouth once daily.^Disp: 30 tablet^Rfl: 3 fluticasone (FLONASE) 50 mcg/actuation nasal spray^Use 2 Sprays in each nostril twice daily.^Disp: 16 g^Rfl: 11 cetirizine (ZYRTEC) 10 mg tablet^Take 1 tablet by mouth once daily.^Disp: 30 tablet^Rfl: 5 insulin lispro (HUMALOG KWIKPEN INSULIN) 100 unit/mL^Dose varies units with meals and sliding scale, using about 40 total units a day^Disp: 15 mL^Rfl: 6 Insulin Calvin, Disposable, (BD ULTRA-FINE YARON PEN NEEDLE) 32 gauge x 5/32 ^5x/day^Disp: 150 Each^Rfl: 11 insulin glargine (BASAGLAR KWIKPEN U-100 INSULIN) 100 unit/mL (3 mL)^Inject 8 units subcutaneously at bedtime^Disp: 2 Pen^Rfl: 6 glucagon (GLUCAGON EMERGENCY KIT, HUMAN,) 1 mg injection^use as directed if needed for SIGNIFICANT LOW BLOOD SUGAR EVENT^Disp: 1 Each^Rfl: 3 CREON 36,000-114,000- 180,000 unit capsule^^Disp: ^Rfl: REVIEW OF SYSTEMS Review of Systems Constitutional: Positive for malaise/fatigue. Negative for chills, fever and weight loss. HENT: Positive for tinnitus. Negative for congestion, hearing loss and sinus pain. Eyes: Negative for blurred vision and double vision. Respiratory: Negative for cough, hemoptysis, sputum production, shortness of breath and wheezing. Cardiovascular: Negative for chest pain, palpitations and leg swelling. Gastrointestinal: Positive for diarrhea. Negative for abdominal pain, constipation, heartburn, nausea and vomiting. Genitourinary: Negative for dysuria and urgency. Musculoskeletal: Negative for back pain and joint pain. Skin: Negative for itching and rash. Neurological: Negative for dizziness and headaches. Endo/Heme/Allergies: Negative for environmental allergies. Does not bruise/bleed easily. Psychiatric/Behavioral: Negative for depression. The patient is not nervous/anxious. dynamic dot rosed PHYSICAL EXAMINATION: VITAL SIGNS: There were no vitals taken for this visit. Physical Exam Nursing note reviewed: cachectic. Constitutional: General: He is not in acute distress. Appearance: Normal appearance. HENT: Right Ear: Tympanic membrane normal. Left Ear: Tympanic membrane normal. There is no impacted cerumen. Nose: Nose normal. No congestion. Mouth/Throat: Mouth: Mucous membranes are moist. Pharynx: Oropharynx is clear. No oropharyngeal exudate or posterior oropharyngeal erythema. Eyes: General: No scleral icterus. Conjunctiva/sclera: Conjunctivae normal. Pupils: Pupils are equal, round, and reactive to light. Cardiovascular: Rate and Rhythm: Normal rate and regular rhythm. Pulses: Normal pulses. Heart sounds: Normal heart sounds. No murmur heard. Pulmonary: Effort: Pulmonary effort is normal. No respiratory distress. Breath sounds: Normal breath sounds. No wheezing or rales. Abdominal: General: Abdomen is flat. Bowel sounds are normal. There is no distension. Palpations: Abdomen is soft. Tenderness: There is no abdominal tenderness. Musculoskeletal: General: No swelling or deformity. Normal range of motion. Cervical back: Normal range of motion and neck supple. Comments: Digital Clubbing Lymphadenopathy: Cervical: No cervical adenopathy. Skin: General: Skin is warm and dry. Capillary Refill: Capillary refill takes less than 2 seconds. Coloration: Skin is not pale. Findings: No erythema. Neurological: General: No focal deficit present. Mental Status: He is alert and oriented to person, place, and time. Psychiatric: Mood and Affect: Mood normal. Behavior: Behavior normal. DATA: Diagnostic tests reviewed for today's visit, imaging was personally reviewed by me: Most recent labs LAST LAB RESULTS: ---Reviewed in [facility] Glucose (mg/dL) Date Value 08/01/2022 281 12/08/2015 113 Potassium Date Value 08/01/2022 4.4 mmol/L 12/08/2015 4.5 mEq/L Sodium Date Value 08/01/2022 130 mmol/L 12/08/2015 139 mEq/L Chloride Date Value 08/01/2022 99 mmol/L 12/08/2015 102 mEq/L CO2 Date Value 08/01/2022 25 mmol/L 12/08/2015 31 mEq/L Creatinine (MG/DL) Date Value 08/07/2022 1.04 BUN (mg/dL) Date Value 08/01/2022 10 12/08/2015 16 Anion Gap Date Value 08/01/2022 6 mmol/L 12/08/2015 11 Calcium (mg/dL) Date Value 12/08/2015 9.3 Calcium, Total (mg/dL) Date Value 08/01/2022 8.6 Protein, Total (g/dL) Date Value 08/01/2022 6.6 12/08/2015 9.5 Albumin (g/dL) Date Value 08/01/2022 2.2 12/08/2015 3.4 Bilirubin, Total (mg/dL) Date Value 08/01/2022 0.5 12/08/2015 1.3 Alkaline Phosphatase (U/L) Date Value 08/01/2022 956 12/08/2015 807 AST (U/L) Date Value 08/01/2022 89 12/08/2015 110 ALT (U/L) Date Value 08/01/2022 35 12/08/2015 164 CBC with diff: WBC 8.4 08/06/2022 RBC 3.33 08/01/2022 Hemoglobin 11.5 08/06/2022 Hematocrit 34.3 08/06/2022 MCV 91.3 08/01/2022 MCH 31.2 08/01/2022 MCHC 34.2 08/01/2022 RDW-CV 13.2 08/01/2022 Platelet Count 422 08/06/2022 MPV 9.1 08/01/2022 Neut% 57.5 08/06/2022 Lymph% 9.8 07/29/2022 [place]% 12.6 07/29/2022 Eosin% 7.9 08/06/2022 Baso% 0.4 07/29/2022 Abs Neut (Segs + Bands) 4.8 08/06/2022 Abs [place] 1.28 07/29/2022 Abs Eosin 0.17 07/29/2022 Abs Baso 0.04 07/29/2022 SPIROMETRY: Reviewed in [facility] SPIROMETRY BASELINE ONLY ([id number]) - ordered on 07/17/22 No textual results for order. MICROBIOLOGY: Reviewed MICROBIOLOGY SNAPSHOT Written and verbal health teaching given to patient, patient verbalizes understanding and agrees with treatment plan. Electronically Signed: Sally Schneider CNP August 09, 2022 documented in this encounterOhio[facility]-25-[facility]22 Miscellaneous Notes* Telephone Encounter - Forrest Hale MD - 07/25/2022 4:33 PM EDT Pt wtihout subsequent hemoptysis. Home COVID test pending. CXR without acute infiltrate. A/p: CF Pulmonary exacerbation Hemoptysis Resolved Pseudomonas BCC CF related liver disease Advanced stage lung disease Plan: Follow up home covid test TXA on hand for recurrent hemoptysis (Take 2 tabs and call CF team) Oral cipro Oral bactrim If not better by Friday or worsens, then admissin for IV abx. 07/25/2022 10:47 AM - Radiology, [place] In Impression IMPRESSION: Findings in keeping with cystic fibrosis. Manager Code: KATHIE Transcribe Date/Time: Jul 25 2022 10:42A Dictated by : GIOVANA RUBIO MD This examination was interpreted and the report reviewed and electronically signed by: GIOVANA RUBIO MD on Jul 25 2022 10:45AM EST Results-Findings * * *Final Report* * * DATE OF EXAM: Jul 25 2022 10:34AM [id number] - XR CHEST 2V FRONTAL/LAT / PROCEDURE REASON: Cystic fibrosis with pulmonary manifestations (HCC) * * * * Physician Interpretation * * * * EXAMINATION: CHEST RADIOGRAPH (2 VIEW FRONTAL & LATERAL) CLINICAL HISTORY: Cystic fibrosis with pulmonary manifestations (HCC) MQ: [id number]_6 EXAM DATE/TIME: 07/25/2022 10:34 AM COMPARISON: Chest x-ray on 05/12/2022 RESULT: Lines, tubes, and devices: None. Lungs and pleura: Extensive peribronchial cuffing, bronchiectasis/cyst formation and numerous small nodules in the bilateral lungs, with upper lung predominance. No solid mass. No pleural effusions or pneumothorax. Cardiomediastinal silhouette: Stable cardiac silhouette. There is bulging of the pulmonary trunk, likely reflecting underlying pulmonary hypertension. Bones and soft tissues: Unremarkable. documented in this encounterOhio[facility]08-25-2022 History of Present illness Narrative* Oswaldo Saba, RT(R) - 07/25/2022 10:20 AM EDT Radiology Service Progress Note PATIENT NAME: Jay Barber DATE OF SERVICE: July 25, 2022 TIME: 10:28 AM PATIENT IDENTITY VERIFICATION COMPLETED USING TWO (2) IDENTIFIERS: Name and Date of confirmedby patient verbally. FALL SCREENING: Has the patient had 2 falls in the last year or 1 fall with injury or currently using an Ambulatory Assistive Device (Walker, Cane, Wheelchair, Crutches, etc.)? No PATIENT GENDER DATA: Male PATIENT RELEVANT IMPLANT DATA REVIEWED: Not Applicable RADIOLOGY DEPARTMENT: General X-ray: Exam(s) Completed: Chest X-Ray PERIPHERAL IV DATA: Not applicable SIGNED BY: RT Kushal(R) July 25, 2022 10:28 AM documented in this encounterOhiohealth Mans[facility]08-21-2022 Instructions* Patient Instructions* She Pete DO - 07/21/2022 4:24 PM EDT BONE MINERAL DENSITY PATIENT INSTRUCTIONS Bone mineral density testing measures the amount of calcium in certain parts of your bones. This information determines how strong your bones are. The test is used to detect osteoporosis, a disease in which the bone's mineral content and density are low, increasing a person's risk of fractures. Thelumbar spine (lower back) and the hip are the skeletal sites usually examined. For the test, remember that: 1. You cannot take this test if you are . 2. Eat a normal diet on the day of the test. 3. Take your medications as you normally would. 4. DO NOT take calcium supplements (such as Tums) for 24 hours before the test. 5. On the day of the test, leave valuables (jewelry or credit cards) at home. 6. The test should be performed prior to oral, rectal or IV contrast studies, or at least 7 days after any of these studies. For the test, you may be asked to wear a hospital gown. You will lie on your back, on a padded table, in a comfortable position. Generally, you can resume your usual activities immediately. documented in this encounterOhiohealth [facility]08-17-2022 History of Present illness Narrative* She Pete DO - 2022 5:57 PM EDT Jay Barber is here for IRB # [id number] Cystic Fibrosis Patient Registry IRB# [id number] Teacher Industrial Arts: Forrest Hale MD 1. Teacher Industrial Arts and/or Research Nurse explained the protocol to the subject. Yes 2. Risks,benefits, alternative procedures explained. Yes 3. Reviewed HIPPA disclosure information with the subject. Yes 4. Follow-up requirements explained. Yes 5. Reviewed research related injuries and cost with subject. Yes 6. Subject asked appropriate questions and answers provided to the subject. Yes 7. Subject read and verbally understands informed consent. Yes 8. Subject was given a copy of the signed informed consent. Yes 9. Family present at the time of the consent. patient and family. No 10. Other staff Present at the time of the consent. No Consent Version: 3.0 Date 23May2017 Date Consent Signed:2022 The CF registry consent was explained to the subject during their clinic visit today. Jay Long participated in the CF registry previously at other CF centers. Jay is aware that no furtherstudy visits are required and that data for this registry will be obtained from visits with their health care team [facility]. There is no compensation for participating in this study. Zoie Barber verbalized understanding and had no further questions prior to signing the consent. Nostudy procedures occurred prior to signing consent. She Pete DO documented in this encounterOhiohealth [facility]08-17-2022 History of Present illness Narrative* She Pete DO - 2022 9:30 AM EDT Images from the original note were not included. PULMONARY MEDICINE CYSTIC FIBROSIS FOLLOW UP Patient Name: Jay Barber PRIMARY CARE PHYSICIAN: No primary care provider on file. Portions of this note were taken from the note dated 02/25/[address] Kilgore ASSESSMENT AND PLAN: Jay Barber is a 27 year old male, here for follow-up of Cystic Fibrosis 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 ([birth year]/1994 - report given today by patient - will scan into chart. 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 Francis Ramirez - requests to continue to follow him - will repeat TTE and RUQ US with next visit - needs DEXA - will have him see hepatology when he comes to [facility] as well - CF sputum culture today - refilled medications - modified dosing of Trikafta due to liver disease - discussed about lung transplant as possible liver transplant - we discussed referral to [facility] due to continued growth of Burkholderia, he is not interested in transplant at this time RTC: at [facility] for annual visit with hepatology She Pete, DO 1. 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[facility] in 2019), MRSA Chronic maintenance regimen: CFTR modulators: Trikafta - on adjusted dosing due to Cirrhosis - reports taking 2 orange pills on even days of the month and 1 orange pill on odd days of the month, No blue pills - will f/up LFTs today Pulmozyme: has at home but not currently using Hypertonic saline: has at home but not currenltly using Chronic Azithromycin (anti-inflammatory): No (on hold due to prior NTM) Inhaled Abx: Ibuprofen: No Nebulized short-acting bronchodilator: albuterol as needed Nebulized other: PEP device: VEST: not currently using ICS: Advair 500/50mg 2 puffs BID Oral prednisone: as needed Pulm rehab: not currently using Supplemental oxygen use: no 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 We discussed possibility of referral to [facility], would like to hold off for now ---Referred for lung transplantation: not at this time per patient preference CHRONIC RESPIRATORY TRACT PSEUDOMONAS AND BURKHOLDERIA ---Mucoid phenotype ---Inhaled antibiotic: previously used cayston montly alternating with MUKESH podhaler - not currently doing ---Not on chronic azithromycin due to NTM ---Oral antibiotic that patient responds to: Cipro and Bactrim ---IV abx that patient responds to: IV TOBRAMYCIN, meropenem, vancomycin CYSTIC FIBROSIS PANCREATIC INSUFFICIENCY --- No generic enzymes, ever. ---Creon 36,000, 3-4 BEFORE meals AND 2-3 BEFORE snacks ---Fat soluble supplemental vitamins: Vitamin K 40 mcg daily ---CF Vitamins: MVI 2 daily ---Vitamin D2 50,000 weekly Vitamin D 25 Hydroxy (ng/mL) Date Value 2022 14.7 CYSTIC FIBROSIS LIVER DISEASE --- cirrhosis complicated by esophageal varices, portal hypertension --- actigall stopped - pending labs will restart --- last RUQ US in 08/2020 --- last EGD ? - will need to obtain recocrds --- on mephyton 5mg MWF CHRONIC PANSINUSITIS Sinuses can be a reservoir of bacterial infection and contribute to recurrent lower respiratory tract infections, especially in patients infected with Pseudomonas Symptoms are worse Nasal polyps - unknown? ---Antihistamine: restart zyrtec ---Nasal steroid: restart flonase ---Montelukast: can add next ---If not improving with restart sinus medications - will obtain CT sinus and referral to ENT ---Referral to ENT for surgical eval. Appt [phone]. CYSTIC FIBROSIS RELATED DIABETES ---The standard medical therapy for CFRD is subcutaneous insulin (oral diabetic agents should not be used); ---Patient currently on insulin therapy. ---Self monitored blood glucose 3 times per day ---Most recent hgA1c noted. ---Following with Dr. Francis Ramirez at Home-Account Prior Invasive Pulmonary Aspergillus infection/Trichosporonosis - treated with voriconazole by ID cosmetic consultant Dr. Burke France in 2019 for 1 year Depression/Anxiety ---continues on celexa 20 mg PO daily ---will have him see SW with next visit HTN ---amlodipine 10 mg PO daily (had hyperkalemia with SEVERINO-I) Proteinuria --- previously seen by Dr. Ahuja in nephrology Hemoglobin A1C (%) Date Value 2022 8.6 02/12/2021 8.8 12/08/2015 8.3 Hemoglobin A1c (%) Date Value 05/22/2021 7.4 09/11/2020 6.4 12/30/2019 6.9 Hemoglobin A1C (POCT) (%) Date Value 12/24/2021 7.5 09/10/2021 7.4 05/22/2021 7.4 09/11/2020 6.4 HGBA1C (%) Date Value 07/30/2019 6.5 04/30/2019 6.6 01/25/2019 8.1 09/10/2018 8.2 05/29/2018 10.3 06/25/2016 7.0 ANNUAL SCREENING: Annual labs: will obtain today OGTT: not needed due to CFRD DEXA: needs Colonoscopy: Start screening at age 35-40 years in CF due to increased risk of GI carcinoma: not ofage as of yet CHIEF COMPLAINT: Cystic Fibrosis HISTORY OF PRESENT ILLNESS: Jay Barber is a 27 year old male, here for follow-up of Cystic Fibrosis Courses of oral abx since last visit:0 Courses of IV abx since last visit:0 Prednisone use since last visit: 0 ED visits since last visit: yes - constipation Hospitalizations since last visit: yes- constipation INTERVAL HISTORY RESPIRATORY: Cough: occasional Paroxysms: none Sputum: occasional Hemoptysis: scant amount Chest Congestion: small amount Dyspnea: with heavy exertion and going up stairs Chest Pain: no Night sweats: no Fever: no Fatigue:no Wheezing: no Sinuses: worsening symptoms GASTROINTESTINAL: GE Reflux: no Appetite: good Abdominal Pain:none Bowel Movement: 3-4/day, Diet (details): high calorie/high fat Supplements: ensure Vomiting: no Prolapse: None TINNITUS: no JOINT/BACK PAIN: no Anxiety: yes, stable Depression: yes, stable - taking celexa ENDOCRINE CFRD:is present Without polyuria, polydipsia, nocturia or hypoglycemic symptoms Prior exacerbation treatments per [facility] Procedures & IV/Oral Course: -12/15/95-12/23/95 Hospitalized d/t CF, Influ A, DM- IV ABX, BS monitoring -02/24/96-03/01/96 Hospitalized d/t CF exacerbation and DM- IV Cefuroxime -03/01/96 Home Treatment - CF exacerbation - IV Cefuroxime --- -06/15/97-06/21/97 Hospitalized - CF exac.-IV Tobra and Timentin -06/21/97 Home Treatment -CF exacerbation IV Tobra and Timentin --- -08/07/99-08/10/99 Hospitalized - BS out of control - Insulin started, IV Zosyn and Tobra -08/10/99 Home Treatment -CF exacerbation IV Zosyn and Tobra --- -03/19/00-03/22/00 Hospitalized - CF exacerbation - IV Zosyn and Tobra - 03/22/00 Home Treatment -CF exacerbation IV Zosyn and Tobra -04/14/00-04/17/00 Hospitalized - viral illness, fever - PFTs, labs, airosols, PD -08/10/00-08/20/00 Hospitalized - FUO - CT Chest and Gallium Scan (bronchiectasis RUL and LLL --- -02/18/01 OPS- Colonoscopy and biopsy, r/o fibrosing colonopathy --- -03/10/02-03/14/02 Hospitalized -CF exacerbation - IV Tobra and Meropenem -03/14/02-03/24/02 Home Treatment - CF exacerbationIV Tobra and Meropenem --- -06/15/03-06/16/03 Hospitalized - CF exacerbation, chronic bronchitis, D.M. - IV Tobra and Meropenen -06/16/03-06/29/03 Home Treatment -CF exacerbation IV Tobra and Meropenem --- -12/07/2003 Home Treatment - Zyvox x14 days -01/09/2004 Home Treatment - CF exacerbation IV Cefoxitin and po Biaxin treatment atypical mycobacteria -02/08/2004-02/22/2004 Hospitalized - CF exacerbation - IV course of Vancomycin, Tobramycin, and Meropenem x14 days total -09/25/2004 Home Treatment - Cipro x21 days -10/18/2004- 10/24/2004 Hospitalized - CF exacerbation - IV course of Meropenem and Tobramycin and Bactrim po x14 days total -11/21/2004 Home Treatment - Cipro and Duricef x14 days --- -12/26/2004 Home Treatment - Cipro and Duricef x14 days -02/11/2005 Home Treatment - Cipro x14 days -02/27/2005 Home Treatment - po Cipro x7 more days and Prednisone x5 days --- -08/05/2006 Home Treatment - po Bactrim x14 days -09/24/2006 Home Treatment - po Zyvox x14 days -10/11/2006 to 10/17/2006 Hospitalized - CF exacerbation - IV course of Tobramycin, IV Timentin, and IV Zyvox later changed to IV Vancomycin because of pancytopenia- completed three weeks at home -11/26/2006 Home Treatment - po Cipro and po Zyvox x21 days --- -02/10/2007 Home Treatment - po Cipro and po Bactrim x14 days -04/03/2007 to 04/08/2007 Hospitalized - CF exacerbation with first hemoptysis- IV course of Tobramycin, IV Ceftazidime and IV Zyvox continued at home until 04/17/2007- short of three weeks because of thrombocytopenia -04/22/[address] Trejo- low platelets and low white count most likely from cobination of hypersplenism, illness and antibiotics -05/04/[address] 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 --- -06/27/08 - 07/01/08 Hospitalized - CF exacerbation - IV course of Meropenem, Tobramycin and Linezolid. IVs continued at home for total 3 wks. -10/26/08 Home Treatment - PO Cipro and Bactrim DS x 21 days -11/21/08 - 11/28/08 Hospitalized -CF exacerbation - IV course of Timentin, Vancomycin and Tobramycin. IVs continued at home for total 3 wks --- -01/25/09 Home Treatment - PO Zyvox x 10 days -02/01/09 Home Treatment - PO Bactrim DS x 7 days due to rash possibly due to Zyvox (was on for 6 days) -08/23/2009 Hospital/Home CF exacerbation, IV Meropenem, Tobramycin, Vancomycin X 3 weeks --- -04/11/2010 Home treatment Zyvox po X 14 days -04/29/2010-05/02/2010 Hospital: GI bleed secondary to esophageal varices -05/24/2010 OPS: Upper endoscopy with banding of esophageal varices -06/26/2010 Hospital/Home IV -CF exacerbation - 2 weeks Meropenem, Tobramycin, Vancomycin -09/09/2010 Hospital/Home IV CF exacerbation- X 24 days (Pulm. exacerbation with hemoptysis) Meropenem, tobramycin, Vancomycin -10/29/2010 Home treatment Zyvox po X 2 weeks -11/13/2010 Hospital/surgery at [place]: Splenorenal shunt --- -03/13/2011 Home treatment Bactrim po X 21 days -09/18/11 - cipro and rifampin x 14 days -10/23/11 - restart cipro and rifampin x 14 days -11/15/11 - CF exacerbation - Admit for IV start; Meropenem, tobramycin, vancomycin until 12/18/11 --- -02/19/2012 Cipro and Bactrim x14 days -09/03/12 - cipro and bactrim x 14 days --- -12/09/2012- bactrim and cipro x 14 days -01/15/13 admit Hospitalized - CF Exacerbation: IV larisa, tobra cont at home, finish PO zyvox -01/30/13 - Hospitalized - CF Exacerbation: IV larisa, tobra, vanco contd at home, also PO itraconazole & bactrim -06/21/13- 06/25/13 Hospitalized - CF Exacerbation: IV vanc & ceftaz. cont'd at home -07/23/13 diflucan x 1 tab -08/25/13- cipro and bactrim x 14 days over phone -09/03/2013- 10/06/13 -: home IV Zyvox, IV Vancomycin, po Bactrim --- - 12/08/2013 Zyvox x21 days - 03/16/14 Cipro and bactrim over phone - 04/11/14 Admit - CF Exacerbation and home on IV Meropenem and IV Vancomycin until 04/27/14 - 06/29/14- 07/04/14 for hemoptysis. Was started on IV antibiotics which were d/c'd due to low WBC - 07/27/14 Cipro & Bactrim x14 days - 08/22/14 Cipro & Bactrim - 08/26/14 Admit 23 hours- CF Exacerbation Home on IV Meropenem, IV Vancomycin and IV Tobramycin - 10/28/14 Cipro & Bactrim x14 days - 11/14/14-11/15/2014 Admit CF Exacerbation Home on IV Meropenem, IV Vancomycin, and IV Tobramycin - 11/22/[address] --- IV continued until 12/07/2014 - 02/10/15 Home IVs CF Exacerbation IV Meropenem, IV Vancomycin, and IV Tobramycin - 08/23/2015 Home IVs CF Exacerbation IV Meropenem, IV Vancomycin, and IV Tobramycin ---- - 09/02/16 - Home IV's Larisa/tobra/vanco - 09/16/16 - Po prednisone added x5 days in addition to IV's --- - 07/14/17 - PO Cipro/Bactim - 08/27/17 - Home IV- Vanco/Larisa/Tobra - 01/19/18 - PO Cipro/Bactrim - 02/09/18 - PO Cipro/Zyvox - 02/23/18 - Home IV Larisa/Tobra/Vanco - 05/27/18 - Home IV Vanco/Tobra/Meropenem - 09/14/18 - PO Doxy - 10/19/18 - PO Cipro/Bactrim ----- - 12/28/18 - Home IV Larisa/Vanco/Tobra ------ - 03/19/21- PO Levaquin/Minocycline 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) Liver disease care home (current) use of insulin (HCC) Transfusion history Type 1 diabetes mellitus with hyperglycemia (HCC) PAST SURGICAL HISTORY Procedure Laterality Date PAST SURGICAL HISTORY OF splenal renal shunt to treat portal hypertension FAMILY HISTORY Problem Relation Age of Onset Hypertension Mother Breast Cancer Other other (hypercholesterolemia) Other other (heart disease in female family member before age 65) Other Social History Tobacco Use Smoking status: Never Smokeless tobacco: Never Substance Use Topics Alcohol use: No Drug use: No ALLERGIES: ALLERGIES Allergen Reactions Vancomycin Itching, Rash Gets Red Man syndrome and pt if not premedicated with benadryl prior to Vancomycin infusions. Cefoxitin Rash, Other: See Comments Severe abdominal pain, diarrhea, rash Severe Abdominal Pains CURRENT OUTPATIENT MEDICATIONS: TRIKAFTA 100-50-75 mg(d) /150 mg (n) tablet citalopram hydrobromide (CELEXA) 10 mg tablet Take 20 mg by mouth. insulin detemir U-100 (LEVEMIR) 100 unit/mL injection Inject 8 Units subcutaneously. amLODIPine (NORVASC) 10 mg tablet Take 1 tablet by mouth once daily. insulin lispro (HUMALOG KWIKPEN INSULIN) 100 unit/mL Dose varies units with meals and sliding scale, using about 40 total units a day Insulin Calvin, Disposable, (BD ULTRA-FINE YARON PEN NEEDLE) 32 gauge x 5/32 5x/day insulin glargine (BASAGLAR KWIKPEN U-100 INSULIN) 100 unit/mL (3 mL) Inject 8 units subcutaneously at bedtime glucagon (GLUCAGON EMERGENCY KIT, HUMAN,) 1 mg injection use as directed if needed for SIGNIFICANT LOW BLOOD SUGAR EVENT PROAIR HFA 90 mcg/actuation inhaler CREON 36,000-114,000- 180,000 unit capsule VITAMIN D2 1,250 mcg (50,000 unit) capsule Take 1 capsule by mouth two times a week. fluticasone-salmeterol (ADVAIR) 500-50 mcg/dose dsdv Inhale 1 Puff as instructed twice daily. fluticasone (FLOVENT) 220 mcg/actuation inhaler Inhale 1 Puff as instructed once daily as needed. vitamin K2 40 mcg tab Take 1 tablet by mouth once daily. fluticasone (FLONASE) 50 mcg/actuation nasal spray Use 2 Sprays in each nostril twice daily. cetirizine (ZYRTEC) 10 mg tablet Take 1 tablet by mouth once daily. REVIEW OF SYSTEMS Review of Systems Constitutional: Negative for activity change, appetite change, fatigue and fever. HENT: Positive for congestion, postnasal drip and sinus pressure. Negative for nosebleeds, rhinorrhea, sinus pain, tinnitus and trouble swallowing. Eyes: Negative. Respiratory: Positive for cough and shortness of breath (with heavy exertion). Cardiovascular: Negative for chest pain, palpitations and leg swelling. Gastrointestinal: Negative for constipation, diarrhea, nausea and vomiting. Endocrine: Negative. Genitourinary: Negative. Musculoskeletal: Negative. Skin: Negative. Allergic/Immunologic: Negative. Neurological: Negative. Hematological: Negative. Psychiatric/Behavioral: Negative. PHYSICAL EXAMINATION: BP 138/76 (BP Site: Right Arm, BP Position: Sitting, BP Cuff Size: Regular Adult) Pulse 117 Temp 37.5 C (99.5 F) (Tympanic) Ht 157.5 cm (5' 2.01 ) Wt 38.4 kg (84 lb 11.2 oz) SpO2 96% BMI 15.49 kg/m Physical Exam Vitals and nursing note reviewed. Constitutional: General: He is not in acute distress. Appearance: Normal appearance. HENT: Head: Normocephalic and atraumatic. Mouth/Throat: Mouth: Mucous membranes are moist. Eyes: Extraocular Movements: Extraocular movements intact. Conjunctiva/sclera: Conjunctivae normal. Pupils: Pupils are equal, round, and reactive to light. Cardiovascular: Rate and Rhythm: Normal rate and regular rhythm. Heart sounds: No murmur heard. Pulmonary: Effort: Pulmonary effort is normal. No respiratory distress. Breath sounds: No wheezing or rales. Abdominal: General: There is no distension. Palpations: Abdomen is soft. Tenderness: There is no abdominal tenderness. Musculoskeletal: General: No swelling. Normal range of motion. Skin: General: Skin is warm. Coloration: Skin is not jaundiced. Neurological: General: No focal deficit present. Mental Status: He is alert and oriented to person, place, and time. Psychiatric: Mood and Affect: Mood normal. Behavior: Behavior normal. DATA: Diagnostic tests reviewed for today's visit were personally reviewed by me: Sputum culture results and Most recent labs and imaging results. Most recent EKG CXR and KUB 05/12/2022 - [facility] IMPRESSION: There are chronic cystic fibrosis changes in the lungs. Compared to the last exam there is a mild increase in the interstitial markings. Whether this is superimposed pneumonia is uncertain. The heart size is stable. No pneumothorax or pleural effusion is seen. There are surgical clips in the left upper quadrant. The bowel gas pattern is nonspecific. The bones are stable in appearance. TTE 09/18/2020 FINDINGS: ANATOMIC RELATIONSHIPS - Left sided cardiac apex (levocardia). Normal atrial situs. Concordant atrioventricular alignment. Ventricular d-loop. Concordant ventriculoarterial connection. Normally related great vessels. VEINS AND ATRIA Atrial septum - A patent foramen ovale cannot be excluded. Left atrium - The atrium is normal in size. Right atrium - The atrium is normal in size. Systemic veins - Superior and inferior caval veins return to the right atrium. No persistent left superior caval vein is seen, there is no coronary sinus dilation. Pulmonary veins: Normal pulmonary venous return. Normal phasic pulmonary vein Doppler. A-V CANAL Tricuspid valve - The valve is structurally normal. - There is no evidence for stenosis. There is trivial regurgitation. Mitral valve - The valve is structurally normal. No echocardiographic evidence for prolapse. - There is no evidence for stenosis. There is no regurgitation. VENTRICLES Right ventricle - The cavity size is normal. Wall thickness is normal. Systolic function is qualitatively normal. Diastolic function appears normal. Ventricular septum - There is no evidence of a ventricular septal defect. There is no evidence of a ventricular septal defect. Left ventricle - The cavity size is normal. Wall thickness is normal. Systolic function is quantitatively normal. The endocardial fractional shortening (MM) is 37%. - Left ventricular diastolic function parameters are normal. CONOTRUNCUS Aortic valve - The valve is structurally normal. The valve is trileaflet. - There is no stenosis. There is no regurgitation. Pulmonic valve - The valve is structurally normal. - There is no stenosis. There is trivial regurgitation. Coronaries - The left main has a normal origin from the left sinus of Valsalva. The right coronary arises normally from the right sinus of Valsalva. No aneurysms or dilation is seen. GREAT ARTERIES Aorta - The arch is left-sided. Normal aortic arch branching pattern. - The aorta is without evidence of coarctation. Pulmonary arteries - The proximal branch pulmonary arteries are normal. - Main pulmonary artery: The artery is of normal size. - Left pulmonary artery: The artery is of normal size. - Right pulmonary artery: The artery is of normal size. Systemic-pulmonary shunts - No evidence of a patent ductus arteriosus. PERICARDIUM - There is no significant pericardial effusion. RUQ US 09/18/2020: IMPRESSION: 1. Liver cirrhosis with multifocal subcentimeter echogenic, shadowing foci of uncertain etiology. No liver calcification is seen on CT performed 02/03/2019. 2. Prominent main portal vein. DEXA 01/25/2019: COMPARISON: 08/29/2016 FINDINGS: Overall comparison to the prior exam is limited as software was updated in the interval. No obvious significant improvement or worsening. The mean BMD estimated from L1-L4 is 0.770 with a Z score of -2.9 (less than - 2.0 is abnormal). The mean BMD estimated from left hip is 0.7 with a Z score of -2.2, and estimated from the right hip is 0.723 with Z score of -2 (less than -2.0 is abnormal). LAST LAB RESULTS: ---Reviewed in [facility] CBC with diff: WBC 6.58 12/05/2015 RBC 5.39 12/05/2015 Hemoglobin 16.2 12/05/2015 Hematocrit 48.4 12/05/2015 MCV 89.8 12/05/2015 MCH 30.1 12/05/2015 MCHC 33.5 12/05/2015 RDW-CV 12.9 12/05/2015 Platelet Count 157 12/05/2015 MPV 11.0 12/05/2015 Neut% 62.5 12/05/2015 Lymph% 24.9 12/05/2015 [place]% 9.1 12/05/2015 Eosin% 3.0 12/05/2015 Baso% 0.5 12/05/2015 Abs Neut (ANC) 4.11 12/05/2015 Abs [place] 0.60 12/05/2015 Abs Eosin 0.20 12/05/2015 Abs Baso 0.03 12/05/2015 Glucose (mg/dL) Date Value 2022 197 12/08/2015 113 Potassium Date Value 2022 4.3 mmol/L 12/08/2015 4.5 mEq/L Sodium Date Value 2022 132 mmol/L 12/08/2015 139 mEq/L Chloride Date Value 2022 95 mmol/L 12/08/2015 102 mEq/L CO2 Date Value 2022 30 mmol/L 12/08/2015 31 mEq/L Creatinine (mg/dL) Date Value 2022 0.65 12/08/2015 0.69 BUN (mg/dL) Date Value 2022 12 12/08/2015 16 Anion Gap Date Value 2022 7 mmol/L 12/08/2015 11 Calcium (mg/dL) Date Value 12/08/2015 9.3 Calcium, Total (mg/dL) Date Value 2022 8.7 Protein, Total (g/dL) Date Value 2022 8.5 12/08/2015 9.5 Albumin (g/dL) Date Value 2022 2.8 12/08/2015 3.4 Bilirubin, Total (mg/dL) Date Value 2022 1.0 12/08/2015 1.3 Alkaline Phosphatase (U/L) Date Value 2022 1,169 12/08/2015 807 AST (U/L) Date Value 2022 35 12/08/2015 110 ALT (U/L) Date Value 2022 20 12/08/2015 164 Vitamin D 25 Hydroxy (ng/mL) Date Value 2022 14.7 ] Hemoglobin A1C (%) Date Value 2022 8.6 02/12/2021 8.8 12/08/2015 8.3 Hemoglobin A1c (%) Date Value 05/22/2021 7.4 09/11/2020 6.4 12/30/2019 6.9 Hemoglobin A1C (POCT) (%) Date Value 12/24/2021 7.5 09/10/2021 7.4 05/22/2021 7.4 09/11/2020 6.4 HGBA1C (%) Date Value 07/30/2019 6.5 04/30/2019 6.6 01/25/2019 8.1 09/10/2018 8.2 05/29/2018 10.3 06/25/2016 7.0 SPIROMETRY: Reviewed in [address], [place], [place] [address] Test Date: 2022 Pat Name: JAY BARBER Department: Room: 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 The inspired (FIVC) spirometry maneuver is [less than] the FVC maneuver. //KS IMPRESSION: Site[facility] ID: [id number] Name: KRIS BARBERN Visit Date: 2022 Doctor: [employer] Special Agent: Kaylen Daigle Age: 27 Date of : 1995 Gender: Male Race: White Height: 62.01 in Weight: 84.70 lbs BSA: 1.327 Diagnosis: Cystic Fibrosis Dyspnea: Cough: Wheeze: Tobacco Product: Years Smoked: Packs/Day: Years Quit: Medications: .Never Smoked Comments: The exhaled (FVC) spirometry maneuver meets ATS/ERS acceptability and repeatability standards. The inspired (FIVC) spirometry maneuver is [less than] the FVC maneuver. //KS Review Status: Not Reviewed PRE-BRONCH POST-BRONCH Pred LLN ULN Actual %Pred Actual %Chng SPIROMETRY FVC (L) 4.08 3.29 4.88 2.63 64 FEV1 (L) 3.45 2.76 4.12 0.92 26 FEV1/FVC 0.85 0.73 0.94 0.35 41 FEF25 (L/sec) 0.69 FEF50 (L/sec) 4.17 2.05 6.30 0.29 7 FEF75 (L/sec) 1.52 0.80 2.69 0.14 9 QIP24-23 (L/sec) 3.77 2.35 5.51 0.27 7 PEF L/s (L/sec) 8.55 6.73 10.37 4.52 52 FIVC (L) 2.46 FIF50 (L/sec) 3.47 PIF (L/sec) 3.84 Time (sec) 14.81 MACIEL (L) 0.02 FET PEF (sec) 0.04 Diagnostics: Office spirometry was reviewed. 201507/01/2016 158.0 2.87 1.34 47 68.9 37.4 Best 201609/17/2017 157.0 3.13 1.37 44 76.1 38.9 Best 201703/18/2018 157.0 2.55 1.08 42 62.1 30.7 2019 03/29/2019 157.0 2.49 1.10 44 60.8 31.3 06/15/2019 157.0 1.81 0.72 40 44.4 20.6 201901/03/2020 157.0 2.56 1.00 39 62.7 28.7 09/18/2020 156.0 43.3 2.66 1.06 40 66.2 31.1 202004/09/2021 156.0 41.5 2.80 1.06 38 70.0 31.1 07/09/2021 156.0 39.6 2.75 1.09 39 68.8 31.9 10/08/2021 157.0 39.2 2.71 1.03 38 66.8 30.1 202112/06/2021 157.0 38.6 2.52 1.01 40 62.1 29 01/14/2022 157.0 40.0 2.12 0.79 37 52.2 23.1 02/25/2022 152.0 39.4 2.76 1.11 40 73.6 34.6 MICROBIOLOGY: Reviewed MICROBIOLOGY SNAPSHOT Culture: 03/22/21- B.Cepacia Complex, B vietnamiensis -- 09/18/20- MRSA 07/03/20- MRSA 01/03/20- MRSA, B.Cepacia -- 10/11/19- MRSA, B.Cepacia, PSA (r) 06/15/19- MRSA, B.Cepacia, Ach. Xylo. 05/17/19- Staph, B.Cepacia 03/12/19- MRSA, B.Cepacia, Steno. Malt. 01/18/19- MRSA, Burkholderia cepacia complex , Js Albicans 01/11/19- MRSA, Steno. Malto., Js parapsilosis 01/04/19- MRSA 12/28/18- MSSA, Burkholderia cepacia complex *Colt cepacia complex:ssp B vietnamiensis- [facility] -- 11/05/18- MRSA 09/14/18- MRSA, Ach. Xylo. 07/27/18- MRSA, H.Flu- Trichosporon Mucoides 05/25/18- MSSA, PSA (r,) 01/19/18- MSSA, PSA (r,r) Trichosporon Mucoides -- 08/27/17- MRSA, PSA (s), Js parapsilosis 07/14/17- MRSA, PSA (s) 03/10/17- MRSA, PSA (s) 12/09/16- MRSA, PSA (s) -- 09/02/16- MRSA, PSA (s) Steno Malt. 07/01/16- MRSA, PSA (s) 04/24/16- MRSA 02/28/16- MRSA, Steno, PSA (r) AFB: (On Zithromax) Held +NTM 03/22/21- neg 09/18/20- neg 10/11/19- neg 05/17/19- neg 11/05/18- neg 05/25/18- neg 01/19/18- neg 07/14/17- neg 03/06/17- neg 12/09/16- neg 09/02/16- Mycobacterium avium-intracellulare complex 02/28/16- neg Fungal: 03/22/21- Js albicans 07/03/20- No fungi 05/17/19- Js parapsilosis 06/11/18- Js parapsilosis, Trichosporon Mucoides, Aspergillus 05/25/18- Js parapsilosis 01/19/18- Trichosporon Mucoides 03/10/17- Js parapsilosis, Aspergillus sp. 02/28/16- Js albicans, js parapsilosis Written and verbal health teaching given to patient, patient verbalizes understanding and agrees with treatment plan. Electronically Signed: She Pete DO 2022 [facility] course Narrative * Lilliana Harvey, CASING INSPECTOR-ACQUISITION ANALYST - 05/14/2022 1:29 PM EDT Discharge/Transfer Summary Name: Jay Barber MR#: [id number] : 1995 Room #: DVY5699/01 Age/Sex: 26 y.o. male Admit Date: 05/12/2022 Admitting: Curtis Arguelles MD Discharge Date: 05/14/2022 Discharged from: [facility] Attending: Curtis Cisneros MD Final Diagnosis: RITA Volume depletion constipation Significant Findings (Problem List): Active Hospital Problems Diagnosis Intractable nausea and vomiting Acute kidney injury Resolved Hospital Problems No resolved problems to display. Reason for Hospitalization: Acute kidney injury Discharge Condition: Good Hospital Course (Care, treatment and services provided): Brief Narrative Hospital Course: Jay is a 26 y.o. male with a history of Cystic Fibrosis. The history is provided by the patient Jay has been feeling poorly since Friday afternoon. His cough is rare and is nonproductive. He has no other associated respiratory symptoms. He has been doing airway clearance occasionally. His activity level has been the same as usual. He had been tolerating PO up until Friday when he felt abdominal fullness and then had almost immediate vomiting with PO intake. Generally he has 3 bowel movements per day, but has not had a bowel movement in several days. Patient was able to tolerate oral intake with multiple bowel movements per day. Labs improved with resolution of RITA. Patient stable for discharge Treatments and procedures with outcomes: No significant invasive procedures Immunizations(administered this admission):none Significant Imaging Results: X-Ray: Pending Test Results and Tests to Obtain as Outpatient: None Disposition: He was discharged to home. Discharge Medications: He did not have significant changes to their home medications (see below) Medication List ASK your doctor about these medications Morning Afternoon Evening Bedtime As Needed ACAPELLA Misc by Does not apply route [ ] [ ] [ ] [ ] [ ] albuterol 108 (90 Base) MCG/ACT inhaler inhale 2 puffs by mouth four times a day Commonly known as: PROAIR HFA;VENTOLIN HFA;PROVENTIL HFA [ ] [ ] [ ] [ ] [ ] amLODIPine 2.5 MG tablet Take 4 Tablets (10 mg) by mouth daily Commonly known as: NORVASC [ ] [ ] [ ] [ ] [ ] cetirizine 10 MG tablet Take 1 Tab (10 mg) by mouth daily as needed for Allergies Commonly known as: ZyrTEC [ ] [ ] [ ] [ ] [ ] CITALOPRAM HYDROBROMIDE PO Take 50 mg by mouth daily [ ] [ ] [ ] [ ] [ ] CREON 92302-440051 units capsule Take 3 Capsules (108,000 Units) by mouth Before Meals and 2 Snacks Generic drug: pancrelipase [ ] [ ] [ ] [ ] [ ] fluticasone 220 MCG/ACT 220 mcg inhaler Inhale 1 Puff into the lungs 2 times daily Commonly known as: FLOVENT HFA [ ] [ ] [ ] [ ] [ ] fluticasone 50 MCG/ACT nasal spray 1 Calvin by Each Nare route 2 times daily Commonly known as: FLONASE [ ] [ ] [ ] [ ] [ ] fluticasone-salmeterol 500-50 MCG/DOSE diskus inhaler Inhale 1 Puff into the lungs 2 times daily Rinse mouth after each use. Commonly known as: ADVAIR [ ] [ ] [ ] [ ] [ ] GLUCAGON EMERGENCY IJ Inject 1 mg into the muscle Use as instructed. [ ] [ ] [ ] [ ] [ ] HANDICAP PLACARD Permanent Placard, for the purpose of a disability. [ ] [ ] [ ] [ ] [ ] insulin detemir 100 UNIT/ML Soln injection Inject 13 Units into the skin nightly at bedtime bedtime Indications: CFRD Commonly known as: LEVEMIR [ ] [ ] [ ] [ ] [ ] MVW COMPLETE FORMULATION Caps Take 2 Capsules by mouth daily [ ] [ ] [ ] [ ] [ ] NONFORMULARY Novolog Meals: 1 units of Rapid Acting Insulin for 10 grams of Carbohydrate Snacks: 1 unit of Rapid Acting Insulin for 15 grams of Carbohydrate Correction Factor: BS > 150 add 1 unit BS > 190 add 2 units BS > 230 add 3 units BS > 270 add 4 units BS > 310 add 5 units [ ] [ ] [ ] [ ] [ ] OPTICEMANUELBER DINO Jean-Paul DEVICE by Other route Use as directed with metered-dose inhaler. [ ] [ ] [ ] [ ] [ ] BOB ALTERA NEBULIZER HANDSET Misc 1 Each by Does not apply route 3 times daily To be used to nebulize no [ ] [ ] [ ] [ ] [ ] phytonadione 5 MG Tabs tablet Take 1 Tab by mouth. Take 5mg on Friday, Friday and Friday Commonly known as: MEPHYTON [ ] [ ] [ ] [ ] [ ] polyethylene glycol 17 GM/SCOOP powder Take 17 g by mouth daily Take one scoop daily mixed in 8 ounces fluid. (may increase up to 2-3 times a day prn) Commonly known as: MIRALAX;GLYCOLAX [ ] [ ] [ ] [ ] [ ] PULMOZYME 2.5 MG/2.5ML nebulizer solution Use 2.5 mL (2.5 mg) by nebulization daily Generic drug: dornase alpha [ ] [ ] [ ] [ ] [ ] tobramycin 300 MG/5ML nebulizer solution Use 5 mL (300 mg) by nebulization every 12 hours Use every other month. Commonly known as: MUKESH [ ] [ ] [ ] [ ] [ ] TRIKAFTA 100-50-75 & 150 MG oral tablet therapy pack Am dose only Generic drug: Ljblnmmq-Oowwutu-Glnuur&Ivacaf [ ] [ ] [ ] [ ] [ ] vitamin D 1.25 MG (48371 UT) capsule Take 1 Capsule (50,000 Units) by mouth every 7 days Indications: Osteoporosis Commonly known as: ERGOCALCIFEROL [ ] [ ] [ ] [ ] [ ] Discharge Instructions: Resume normal activity, diet, and medications. Add Miralax 17g PO q day as needed. Signed: Siria Odonnell was present and examined patient for discharge. documented in this [facility] [id number] Progress note* Ancillary Progress Note - Orquidea Hardy, CCLS - 05/14/2022 1:15 PM EDT Child Life Note Patient Name: Jay Barber Date of : 1995 Date of Visit: 05/14/2022 Visit: Time Spent (15 minute units): 2 Introduced self and services to: Patient Assessment: Affect/Behavior: Attentive;Cooperative Family Dynamics: Not present Developmental Level: Within appropriate developmental parameters Social/Socialization Skills: Appropriate for developmental level Coping: Jacquelyn by support from staff;Developmentally appropriate coping Identified/Verbalized concerns: Anxiety appropriate to circumstance;Admission to hospital Interventions: Emotional Support: Orientation to hospital environment and services;Normalization of environment;Encouraged expression of concerns and feelings Developmental Activities: Patient or Family declined Outcomes: Outcomes/Follow up: Maintained effective coping skills;Will re-assess throughout hospitalization Plan: Psychosocial Plan: Continue to provide ongoing support and services as needed CCLS introduced self and role to patient at bedside. Patient is being seen at [facility] [place] pediatric unit. No specific needs were expressed at this time. Will continue to follow up throughoutadmissions. Patient expected to be discharged. TANA Friend [facility]06-14-2022 Miscellaneous Notes* Ancillary Progress Note - Orquidea Hardy CCLS - 05/14/2022 1:15 PM EDT Child Life Note Patient Name: Jay Barber Date of : 1995 Date of Visit: 05/14/2022 Visit: Time Spent (15 minute units): 2 Introduced self and services to: Patient Assessment: Affect/Behavior: Attentive;Cooperative Family Dynamics: Not present Developmental Level: Within appropriate developmental parameters Social/Socialization Skills: Appropriate for developmental level Coping: Jacquelyn by support from staff;Developmentally appropriate coping Identified/Verbalized concerns: Anxiety appropriate to circumstance;Admission to hospital Interventions: Emotional Support: Orientation to hospital environment and services;Normalization of environment;Encouraged expression of concerns and feelings Developmental Activities: Patient or Family declined Outcomes: Outcomes/Follow up: Maintained effective coping skills;Will re-assess throughout hospitalization Plan: Psychosocial Plan: Continue to provide ongoing support and services as needed CCLS introduced self and role to patient at bedside. Patient is being seen at [facility] pediatric unit. No specific needs were expressed at this time. Will continue to follow up throughoutadmissions. Patient expected to be discharged. TANA Friend * Plan of Care - Andreia Rose RN - 05/14/2022 11:23 AM EDT Problem: Breathing Pattern - Ineffective Goal: Improved breathing pattern Outcome: Ongoing Problem: Injury Risk, Abnormal Serum Glucose Level Goal: Glucose level within specified parameters Outcome: Ongoing Problem: Nutrition Deficit, Risk of Goal: Knowledge of nutritional requirements Outcome: Ongoing Goal: Nutrition intake to meet estimated needs Outcome: Ongoing Problem: Sleep Pattern Disturbance Goal: Able to sleep uninterrupted for age-appropriate length of time Outcome: Ongoing Problem: Transition Readiness Goal: Knowledge of discharge instructions Outcome: Ongoing Goal: Able to safely transition to next level of care Outcome: Ongoing Problem: Diarrhea Goal: Knowledge of infection prevention and control procedures Outcome: Ongoing Goal: Decreased stool volume Outcome: Ongoing Problem: Constipation, Risk of Goal: Bowel elimination without discomfort Outcome: Ongoing Problem: Fluid Volume Deficit Goal: Balanced intake and output Outcome: Ongoing Problem: Gas Exchange - Impaired Goal: Absence of impaired gas exchange signs and symptoms Outcome: Ongoing Problem: Pain - Acute Goal: Reduced pain sensation Outcome: Ongoing * Plan of Care - Roya Kapoor RN - 05/13/2022 3:11 PM EDT Problem: Breathing Pattern - Ineffective Goal: Improved breathing pattern Outcome: Ongoing Problem: Injury Risk, Abnormal Serum Glucose Level Goal: Glucose level within specified parameters Outcome: Ongoing Problem: Nutrition Deficit, Risk of Goal: Knowledge of nutritional requirements Outcome: Ongoing Goal: Nutrition intake to meet estimated needs Outcome: Ongoing Problem: Sleep Pattern Disturbance Goal: Able to sleep uninterrupted for age-appropriate length of time Outcome: Ongoing Problem: Transition Readiness Goal: Knowledge of discharge instructions Outcome: Ongoing Goal: Able to safely transition to next level of care Outcome: Ongoing Problem: Gas Exchange - Impaired Goal: Absence of impaired gas exchange signs and symptoms Outcome: Ongoing Problem: Pain - Acute Goal: Reduced pain sensation Outcome: Ongoing * Ancillary Consult - Bert Briones, [place]/LD - 05/13/2022 2:03 PM EDT Inpatient Nutrition Evaluation for Adult CF Patient Name: Jay Barber Date of : 1995 Sex: male Diagnosis: Patient Active Problem List Diagnosis Cystic fibrosis - use contact precautions Pancreatic insufficiency due to cystic fibrosis 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 Allergic rhinitis, seasonal Short stature Biliary cirrhosis Gastroesophageal reflux Hypersplenism syndrome Moderate persistent asthma without complication Osteopenia Portal hypertension Esophageal 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 Acute respiratory failure with hypoxia 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 Advanced Lung Disease Intractable nausea and vomiting Acute kidney injury Reason for Referral: CF admission Nutrition History: Typical Intake: Breakfast: juice and maybe a granola bar at work Lunch: leftovers, subway sandwich, gingerale Dinner: cheeseburger orbaked potato or chicken / corn Appetite: Good Supplements: ensure 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 @ 56.7 Nutrition Significant Labs, Tests, Procedures: Recent Labs 05/12/22 1012 NA 131* K 8.3* CL 88* CO2 14.2* BUN 45* GLU 324* CREATININE 1.78* CALCIUM 8.1 Dexa : 2019 A1c : 8.3 03/23/22 Nutrition Related Medications and Vit/Min Supplements: MVW complete Vitamin D 50,000 1 x per week Creon 36,000 3 capsules per meal ( 108,000 units) 2849 Units lipase/kg/meal Insulin: HumaLOG - 0-5 units before meals and HS Levemir: 8 units at HS GI Symptoms: constipation problem at admission ( now resolved) Current Nutrition Support: Diet: CF high calorie Supplements: Patient receives ensure at home, but does not wish to receive ensure in the hospital Assessed Needs: Activity :low active = 3 Energy: 2500-2600kcals/day based on CF guidelines Protein: 47- 56 grams/day based on 1.25-1.5 gm/kg Assessment Summary: Jay Barber was seen today at [facility]. Jay was admitted for poor intake related to constipation which is now resolved. Intake has improved since he is stooling. Diet recall indicates inadequate calorie and protein intake with 1.5 kg weight loss since 02/25/22. Provided options to improve intake for breakfast and at work. Jay does get one free case of Ensure per month which he admits to drinking. RD offered patient snacks and he refused at this time. Jay's roof of his mouth is sore and is ordering soft foods. Nutrition Diagnosis: Weight loss related to inadequate intake and posssible dehydration as evidenced by BMI of 16.4 / impaired nutrient utilization related to cystic fibrosis as evidence by need for pancreatic enzymes, fat soluable vitamins and increased energy and protein needs in order to promotegrowth. Nutrition Prescription: CF high calorie diet; encourage fluids Nutrition Goals: *Improve oral intake of at least 75 % of trays * Continue with vitamin D and enzymes *Prevention of further weight loss Time Spent: 45 minute(s) Bert Briones RD/GERRY May 13, 2022 * Ancillary Consult - Joana Castro PT - 05/13/2022 9:14 AM EDT Physical Therapy General Evaluation Patient's Name: Jay Barber MR #: [id number] Patient's : 1995 Patient's age: 26 y.o. Location: [facility] Evaluation date: 05/13/2022 Start Time: 15:45 Stop Time: 16:20 Referring Physician: Curtis Cisneros MD Evaluation type: Inpatient Physical Therapy Evaluation PHYSICAL THERAPY RECOMMENDATIONS/PLAN: Physical Therapy direct intervention 3-5 times per week, while inpatient, with focus on: caregiver/patient education, cardiopulmonary endurance, musculoskeletal concerns, postural exercises, and functional mobility. SUBJECTIVE: Physical therapy was consulted due to: risk of deconditioning due to hospitalization with intractable nausea and vomiting and diagnosis of Cystic Fibrosis. Patient gave permission for assessment at this time. Mom and Dad present during this evaluation. 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 Patient has the following equipment available to them at home Vest and Acapella for Airway Clearance; does not requiring any assistive device; without need of any bracing; and without any functional devices to assist with ADLs. HISTORY: History obtained from chart review and patient reports. Present History: Jay is a 26 y.o. 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 Home design includes: bedroom is on the 1st floor and bathroom is on the 1st floor. Jay was last admitted to [facility] from 06/15/19 to 06/28/19 due to Cystic Fibrosis exacerbation. Please refer to medical record for additional information, as patient's status may have changed since time of evaluation. RANGE OF MOTION/FLEXIBILITY: Formal assessment deferred secondary to patient report of ability to complete all ADLs independentlwithout restriction from any concerns with muscle flexibility; no deficits noted with functional mobility. STRENGTH: Grossly WFL based on observations of functional skills throughout this assessment. NEUROMUSCULAR: Balance, Coordination, and Muscle tone appear good; no focal deficit appreciated COGNITIVE STATE/ORGANIZATION: Patient is alert and oriented, following multiple-step commands appropriately for age. GAIT: Patient ambulates without an assistive device upwards of 5 miles/ work day with appropriate gait pattern. FUNCTIONAL: ADL's: Can complete without difficulty. Patient's and Family's expressed no concerns. MUSCULOSKELETAL/ORTHOPEDIC: Posture: Grossly WNL with the exception of Thoracic kyphosis, Shoulders elevated/forward, and Forward head with atlanto-occipital extension PAIN: Patient reporting/demonstrating: No pain at this time. SENSORY/SKIN: Skin: warm, dry, no rash, no lesions; no clubbing, cyanosis or edema of the extremities, no deformity Sensation: Intact including light touch discrimination, hot discrimination, cold discrimination, and pressure discrimination. CARDIO-PULMONARY: Use of supplemental oxygen: no Oxygen saturation: 95% at rest Heart rate: 92-110 beats per minute Respiratory rate: 16-20 breaths per minute Appearance: normal Cardiovascular endurance is within normal limits for age, for activities of daily living and functional mobility Pt used Acapella for Airway Clearance but does not apply routinely ASSESSMENT: Potential progess toward goals with therapy interventions is good. Anticipate discharge home in 48-72 hours after acute problem improves PROBLEMS/CONCERNS: Impaired cardiopulmonary endurance Impaired muscle flexibility Need for parent/caregiver instruction in Home Exercise Program, Recommendations for improved Postural Alignment, and Proper stretching and strengthening techniques to address musculoskeletal imbalances Patient at risk for functional decline secondary to diagnosis and hospitalization GOALS: Established at evaluation and to be met by time of discharge. Goal #1: Patient to participate in 3-5x/wk Physical Therapy including stretching, generalized strengthening, and cardiopulmonary endurance activities for >30 min/session. Progress: Goal Met: Goal #2: Patient will complete 6 min walk test to monitor cardiopulmonary endurance. Progress: Previously per chart review, patient able to complete 1533' on 06/25/19. Treatment/education provided this date: Education regarding exercise recommendations/precautions. Strengthening exercises: Continue to utilize home gym equipment when not lifting items at work-reports lifting 45-50# consistently at work Stretches: reviewed corner and doorway stretches as well as hamstring stretching Endurance activites: Continue to walk throughout the day as much as tolerated Functional activites: Incorporate stretching with stairs at work and balance activities standing onone leg while brushing teeth Strongly recommend increasing protein consumption with first meal of the day. Thank you for the referral. Joana Castro, HOMER 9:14 AM * Plan of Care - Mckenna Salas RN - 05/13/2022 4:57 AM EDT Problem: Breathing Pattern - Ineffective Goal: Improved breathing pattern Outcome: Ongoing Problem: Injury Risk, Abnormal Serum Glucose Level Goal: Glucose level within specified parameters Outcome: Ongoing Problem: Nutrition Deficit, Risk of Goal: Knowledge of nutritional requirements Outcome: Ongoing Goal: Nutrition intake to meet estimated needs Outcome: Ongoing Problem: Sleep Pattern Disturbance Goal: Able to sleep uninterrupted for age-appropriate length of time Outcome: Ongoing Problem: Transition Readiness Goal: Knowledge of discharge instructions Outcome: Ongoing Goal: Able to safely transition to next level of care Outcome: Ongoing Problem: Diarrhea Goal: Knowledge of infection prevention and control procedures Outcome: Ongoing Goal: Decreased stool volume Outcome: Ongoing Problem: Constipation, Risk of Goal: Bowel elimination without discomfort Outcome: Ongoing Problem: Fluid Volume Deficit Goal: Balanced intake and output Outcome: Ongoing [facility] care [facility]* Plan of Care - Andreia Rose RN - 05/14/2022 11:23 AM EDT Problem: Breathing Pattern - Ineffective Goal: Improved breathing pattern Outcome: Ongoing Problem: Injury Risk, Abnormal Serum Glucose Level Goal: Glucose level within specified parameters Outcome: Ongoing Problem: Nutrition Deficit, Risk of Goal: Knowledge of nutritional requirements Outcome: Ongoing Goal: Nutrition intake to meet estimated needs Outcome: Ongoing Problem: Sleep Pattern Disturbance Goal: Able to sleep uninterrupted for age-appropriate length of time Outcome: Ongoing Problem: Transition Readiness Goal: Knowledge of discharge instructions Outcome: Ongoing Goal: Able to safely transition to next level of care Outcome: Ongoing Problem: Diarrhea Goal: Knowledge of infection prevention and control procedures Outcome: Ongoing Goal: Decreased stool volume Outcome: Ongoing Problem: Constipation, Risk of Goal: Bowel elimination without discomfort Outcome: Ongoing Problem: Fluid Volume Deficit Goal: Balanced intake and output Outcome: Ongoing Problem: Gas Exchange - Impaired Goal: Absence of impaired gas exchange signs and symptoms Outcome: Ongoing Problem: Pain - Acute Goal: Reduced pain sensation Outcome: Ongoing [facility] Plan of care note* Plan of Care - Roya Kapoor RN - 05/13/2022 3:11 PM EDT Problem: Breathing Pattern - Ineffective Goal: Improved breathing pattern Outcome: Ongoing Problem: Injury Risk, Abnormal Serum Glucose Level Goal: Glucose level within specified parameters Outcome: Ongoing Problem: Nutrition Deficit, Risk of Goal: Knowledge of nutritional requirements Outcome: Ongoing Goal: Nutrition intake to meet estimated needs Outcome: Ongoing Problem: Sleep Pattern Disturbance Goal: Able to sleep uninterrupted for age-appropriate length of time Outcome: Ongoing Problem: Transition Readiness Goal: Knowledge of discharge instructions Outcome: Ongoing Goal: Able to safely transition to next level of care Outcome: Ongoing Problem: Gas Exchange - Impaired Goal: Absence of impaired gas exchange signs and symptoms Outcome: Ongoing Problem: Pain - Acute Goal: Reduced pain sensation Outcome: Ongoing [facility] Consult note* Ancillary Consult - Bert Briones RD/GERRY - 05/13/2022 2:03 PM EDT Inpatient Nutrition Evaluation for Adult CF Patient Name: Jay Barber Date of : 1995 Sex: male Diagnosis: Patient Active Problem List Diagnosis Cystic fibrosis - use contact precautions Pancreatic insufficiency due to cystic fibrosis 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 Allergic rhinitis, seasonal Short stature Biliary cirrhosis Gastroesophageal reflux Hypersplenism syndrome Moderate persistent asthma without complication Osteopenia Portal hypertension Esophageal 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 Acute respiratory failure with hypoxia 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 Advanced Lung Disease Intractable nausea and vomiting Acute kidney injury Reason for Referral: CF admission Nutrition History: Typical Intake: Breakfast: juice and maybe a granola bar at work Lunch: leftovers, subway sandwich, gingerale Dinner: cheeseburger orbaked potato or chicken / corn Appetite: Good Supplements: ensure 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 @ 56.7 Nutrition Significant Labs, Tests, Procedures: Recent Labs 05/12/22 1012 NA 131* K 8.3* CL 88* CO2 14.2* BUN 45* GLU 324* CREATININE 1.78* CALCIUM 8.1 Dexa : 2019 A1c : 8.3 03/23/22 Nutrition Related Medications and Vit/Min Supplements: MVW complete Vitamin D 50,000 1 x per week Creon 36,000 3 capsules per meal ( 108,000 units) 2849 Units lipase/kg/meal Insulin: HumaLOG - 0-5 units before meals and HS Levemir: 8 units at HS GI Symptoms: constipation problem at admission ( now resolved) Current Nutrition Support: Diet: CF high calorie Supplements: Patient receives ensure at home, but does not wish to receive ensure in the hospital Assessed Needs: Activity :low active = 3 Energy: 2500-2600kcals/day based on CF guidelines Protein: 47- 56 grams/day based on 1.25-1.5 gm/kg Assessment Summary: Jay Barber was seen today at [facility]. Jay was admitted for poor intake related to constipation which is now resolved. Intake has improved since he is stooling. Diet recall indicates inadequate calorie and protein intake with 1.5 kg weight loss since 02/25/22. Provided options to improve intake for breakfast and at work. Jay does get one free case of Ensure per month which he admits to drinking. RD offered patient snacks and he refused at this time. Jay's roof of his mouth is sore and is ordering soft foods. Nutrition Diagnosis: Weight loss related to inadequate intake and posssible dehydration as evidenced by BMI of 16.4 / impaired nutrient utilization related to cystic fibrosis as evidence by need for pancreatic enzymes, fat soluable vitamins and increased energy and protein needs in order to promotegrowth. Nutrition Prescription: CF high calorie diet; encourage fluids Nutrition Goals: *Improve oral intake of at least 75 % of trays * Continue with vitamin D and enzymes *Prevention of further weight loss Time Spent: 45 minute(s) Bert Briones RD/GERRY May 13, 2022 [facility] History of Present illness Narrative* Curtis Cisneros MD - 05/13/2022 10:49 AM EDT Progress Note DATE OF SERVICE: 05/13/2022 ATTENDING PROVIDER: Curtis Cisneros MD PRIMACY CARE PROVIDER: [facility], MD Marybeth HISTORY OF PRESENT ILLNESS: Jay is a 26 y.o. male with a history of Cystic Fibrosis. The history is provided by the patient Jay has been feeling poorly since Friday afternoon. His cough is rare and is nonproductive. He has no other associated respiratory symptoms. He has been doing airway clearance occasionally. His activity level has been the same as usual. He had been tolerating PO up until Friday when he felt abdominal fullness and then had almost immediate vomiting with PO intake. Generally he has 3 bowel movements per day, but has not had a bowel movement in several days. 05/13/2022 - Patient began having bowel movements overnight. Total of 4-5 per patient. States nauseaand vomiting has improved. 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 Cepacia complex, B vietnamiensis -- 07/09/21- B. cepacia complex, B vietnamiensis 03/22/21- B.Cepacia Complex, B vietnamiensis -- 09/18/20- MRSA 07/03/20- MRSA 01/03/20- MRSA, B.Cepacia -- 10/11/19- MRSA, B.Cepacia, PSA (r) 06/15/19- MRSA, B.Cepacia, Ach. Xylo. 05/17/19- Staph, B.Cepacia 03/12/19- MRSA, B.Cepacia, Steno. Malt. 01/18/19- MRSA, Burkholderia cepacia complex , Js Albicans 01/11/19- MRSA, Steno. Malto., Js parapsilosis 01/04/19- MRSA 12/28/18- MSSA, Burkholderia cepacia complex *Colt cepacia complex:ssp B vietnamiensis- [facility] -- 11/05/18- MRSA 09/14/18- MRSA, Ach. Xylo. 07/27/18- MRSA, H.Flu- Trichosporon Mucoides 05/25/18- MSSA, PSA (r,) 01/19/18- MSSA, PSA (r,r) Trichosporon Mucoides AFB: (On Zithromax) Held +NTM 01/14/22- Neg 10/08/21-neg 03/22/21- neg 09/18/20- neg 2015- Mycobacterium avium-intracellulare complex 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 Cystic fibrosis 10/1995 FTT and steatorrhea Cystic fibrosis - use contact precautions 12/07/2009 Initial Diagnosis: Date: Oct 1995 Reason for referral & symptoms at diagnosis: FTT and steatorrhea Throat/sputum culture at diagnosis: unknown Chest x-ray: unknown Sweat Chloride: unknown 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 Referral: Date: Oct 1995 Patient Age: approx 27 months Referred From:transferred from [facility] Cystic fibrosis exacerbation 04/11/2014 multiple 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 12/07/2009 Esophageal 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 08/01/2010 Gastroesophageal reflux 12/07/2009 Hypersplenism syndrome 12/07/2009 Moderate persistent asthma without complication 12/07/2009 Osteopenia 12/07/2009 Pancreas (digestive gland) works poorly Pancreatic insufficiency due to cystic fibrosis 12/07/2009 Pneumonia 03/12/2019 Portal hypertension 08/01/2010 Short stature 12/07/2009 Past Surgical History: Procedure Laterality Date OTHER SURGICAL HISTORY Splenorenal shunt Oct 2009 PULMONARY ARTERY BANDING DRUG/FOOD ALLERGIES: Allergies Allergen Reactions Vancomycin Itching and Rash Gets Red Man syndrome and pt if not premedicated with benadryl prior to Vancomycin infusions. Cefoxitin Other (See Comments) Severe abdominal pain, diarrhea, rash MEDICATIONS: Medications Prior to Admission Medication Sig Dispense Refill Last Dose CITALOPRAM HYDROBROMIDE PO Take 50 mg by mouth daily Past Week phytonadione (MEPHYTON) 5 MG TABS tablet Take 1 Tab by mouth. Take 5mg on Friday, Friday and Friday 45 Tablet 3 Taking vitamin D (ERGOCALCIFEROL) 1.25 MG (25081 UT) capsule Take 1 Capsule (50,000 Units) by mouth every 7 days Indications: Osteoporosis 12 Capsule 3 Taking polyethylene glycol (MIRALAX;GLYCOLAX) 17 GM/SCOOP powder Take 17 g by mouth daily Take one scoop daily mixed in 8 ounces fluid. (may increase up to 2-3 times a day prn) 578 g 11 Taking albuterol 108 (90 Base) MCG/ACT inhaler inhale 2 puffs by mouth four times a day 1 Each 11 Taking fluticasone-salmeterol (ADVAIR) 500-50 MCG/DOSE diskus inhaler Inhale 1 Puff into the lungs 2 timesdaily Rinse mouth after each use. 1 Each 11 Taking CREON [id number] units capsule Take 3 Capsules (108,000 Units) by mouth Before Meals and 2 [id number] Capsule 11 Taking fluticasone (FLONASE) 50 MCG/ACT nasal spray 1 Calvin by Each Nare route 2 times daily 1 g 0 Taking Bwdkqhfu-Jixjdhz-Rcovuh&Ivacaf (TRIKAFTA) 100-50-75 & 150 MG oral tablet therapy pack Am dose only 84 Tablet 11 Taking amLODIPine (NORVASC) 2.5 MG tablet Take 4 Tablets (10 mg) by mouth daily 360 Tablet 3 Taking insulin detemir (LEVEMIR) 100 UNIT/ML SOLN injection Inject 13 Units into the skin nightly at bedtime bedtime Indications: CFRD (Patient taking differently: Inject 8 Units into the skin nightly at bedtime bedtime Indications: CFRD) 3 Vial 3 Taking cetirizine (ZYRTEC) 10 MG tablet Take 1 Tab (10 mg) by mouth daily as needed for Allergies 30 Tab 11 Taking NONFORMULARY Novolog Meals: 1 units of Rapid Acting Insulin for 10 grams of Carbohydrate Snacks: 1 unit of Rapid Acting Insulin for 15 grams of Carbohydrate Correction Factor: BS > 150 add 1 unit BS > 190 add 2 units BS > 230 add 3 units BS > 270 add 4 units BS > 310 add 5 units 1 Each 0 Taking fluticasone (FLOVENT HFA) 220 MCG/ACT 220 mcg inhaler Inhale 1 Puff into the lungs 2 times daily 1 Each 11 Unknown MVW COMPLETE FORMULATION (MVW COMPLETE FORMULATION) CAPS Take 2 Capsules by mouth daily 60 Capsule 11 tobramycin (MUKESH) 300 MG/5ML nebulizer solution Use 5 mL (300 mg) by nebulization every 12 hours Use every other month. (Patient not taking: No sig reported) 56 Ampule 6 Not Taking dornase alpha (PULMOZYME) 1 MG/ML nebulizer solution Use 2.5 mL (2.5 mg) by nebulization daily 225 mL 3 Unknown Respiratory Therapy Supplies ([employer] NEBULIZER HANDSET) MISC 1 Each by Does not apply route 3 times daily To be used to nebulize cayston 1 Each 5 Spacer/Aero-Holding Chambers (OPTICHAMBER DINO) JEAN-PAUL DEVICE by Other route Use as directed with metered-dose inhaler. 1 Each 0 Misc. Devices (ACAPELLA) MISC by Does not apply route HANDICAP PLACARD Permanent Placard, for the purpose of a disability. 1 Each 0 Glucagon, rDNA, (GLUCAGON EMERGENCY IJ) Inject 1 mg into the muscle Use as instructed. (Patient not taking: No sig reported) VITAL SIGNS: Vitals: 05/13/22 0825 BP: (!) 149/92 Pulse: 90 Resp: 16 Temp: 37.1 C (98.8 F) Weight: Weight - Scale: (!) 37.9 kg (@WFAPERCENT@) Height: @HT@ (@SFAPERCENT@) BMI: Body mass index is 16.4 kg/m . @BMIFAPERCENT@ PHYSICAL EXAM: General: Patient appears healthy, well developed, well nourished, in no acute distress Neuro: alert, oriented appropriately for age Chest: breath sounds are clear to auscultation bilaterally without rales, rhonchi, or wheezes Cardiac: regular rate and rhythm, normal S1 and S2 Abdomen: nontender, nondistended, and bowel sounds are normal Skin: pink, warm, well perfused Musculoskeletal: normal tone, moves all extremities equally with full range of motion DIAGNOSTIC STUDIES REVIEWED: CBC Recent Labs 05/12/22 1012 WBC 20.8* RBC 5.12 HGB 16.2 HCT 46.1 MCV 90.0 MCH 31.6 MCHC 35.1 RDW 13.3 PLT 303 MPV 9.6 DIFFCOMPLETE Manual ASSESSMENT: Jay is a 26 y.o. male with cystic fibrosis, biliary cirrhosis, diabetes mellitus, pancratic insufficiency, osteopenia, abpa who is presenting with 3 days of decreased PO intake, constipation, nausea, and vomitting. Abdominal x- ray without obvious obstruction. He has leukocytosis and acute kidneyinjury. There was some hyperkalemia noted on initial exams in the setting of RITA and his tachycardia has responded well to fluids. We will plan to hydrate him. He is tolerating PO with anti-emetics. Began having bowel movements overnight, 4-5 total. Labs improved. Desaturated overnight to 85%. Plan for PFTs today. Denies any respiratory symptoms. PLAN: RITA: Impression: secondary to poor PO intake, now tolerating PO Plan: serial metabolic panels. Hyperkalemia has improved. CF/GI: Impression: Intractable nausea/vomitting Plan: Symptoms have improved with anti-emetics. Now tolerating PO Impression: constipation without overt obstruction on imaging - improved Plan: Senna and Miralax PO CF/endocrine: Impression: stable on current regimen Plan: Continue to monitor blood glucose and use insulin at current doses. CF/ liver: Impression: unchanged Plan: continue current medications CF/pulm: PFTs showing FEV1 of 0.79L and FVC of 1.83L, which is within the range of his previous values over the past 6 months, though on the lower end of the spectrum. -Encourage bronchopulmonary hygiene. -Oxygen as needed to maintain saturation above 90%. EDUCATION: Discussion with parent/patient (diagnosis, plan) and Problem/Diagnosis, plans explained to patient in age-appropriate way DISCHARGE PLANNING: Anticipate discharge home in 24-48 hours, depending on clinical status and normalization of metabolic panel. Time spent on the history, physical examination, assessment, plan, and coordination of care for this patient was 30 minutes. [facility]* Ancillary Consult - Joana Castro, PT - 05/13/2022 9:14 AM EDT Physical Therapy General Evaluation Patient's Name: Jay Barber MR #: [id number] Patient's : 1995 Patient's age: 26 y.o. Location: [place] Evaluation date: 05/13/2022 Start Time: 15:45 Stop Time: 16:20 Referring Physician: Curtis Cisneros MD Evaluation type: Inpatient Physical Therapy Evaluation PHYSICAL THERAPY RECOMMENDATIONS/PLAN: Physical Therapy direct intervention 3-5 times per week, while inpatient, with focus on: caregiver/patient education, cardiopulmonary endurance, musculoskeletal concerns, postural exercises, and functional mobility. SUBJECTIVE: Physical therapy was consulted due to: risk of deconditioning due to hospitalization with intractable nausea and vomiting and diagnosis of Cystic Fibrosis. Patient gave permission for assessment at this time. Mom and Dad present during this evaluation. 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 Patient has the following equipment available to them at home Vest and Acapella for Airway Clearance; does not requiring any assistive device; without need of any bracing; and without any functional devices to assist with ADLs. HISTORY: History obtained from chart review and patient reports. Present History: Jay is a 26 y.o. 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 Home design includes: bedroom is on the 1st floor and bathroom is on the 1st floor. Jay was last admitted to [facility] from 06/15/19 to 06/28/19 due to Cystic Fibrosis exacerbation. Please refer to medical record for additional information, as patient's status may have changed since time of evaluation. RANGE OF MOTION/FLEXIBILITY: Formal assessment deferred secondary to patient report of ability to complete all ADLs independentlwithout restriction from any concerns with muscle flexibility; no deficits noted with functional mobility. STRENGTH: Grossly WFL based on observations of functional skills throughout this assessment. NEUROMUSCULAR: Balance, Coordination, and Muscle tone appear good; no focal deficit appreciated COGNITIVE STATE/ORGANIZATION: Patient is alert and oriented, following multiple-step commands appropriately for age. GAIT: Patient ambulates without an assistive device upwards of 5 miles/ work day with appropriate gait pattern. FUNCTIONAL: ADL's: Can complete without difficulty. Patient's and Family's expressed no concerns. MUSCULOSKELETAL/ORTHOPEDIC: Posture: Grossly WNL with the exception of Thoracic kyphosis, Shoulders elevated/forward, and Forward head with atlanto-occipital extension PAIN: Patient reporting/demonstrating: No pain at this time. SENSORY/SKIN: Skin: warm, dry, no rash, no lesions; no clubbing, cyanosis or edema of the extremities, no deformity Sensation: Intact including light touch discrimination, hot discrimination, cold discrimination, and pressure discrimination. CARDIO-PULMONARY: Use of supplemental oxygen: no Oxygen saturation: 95% at rest Heart rate: 92-110 beats per minute Respiratory rate: 16-20 breaths per minute Appearance: normal Cardiovascular endurance is within normal limits for age, for activities of daily living and functional mobility Pt used Acapella for Airway Clearance but does not apply routinely ASSESSMENT: Potential progess toward goals with therapy interventions is good. Anticipate discharge home in 48-72 hours after acute problem improves PROBLEMS/CONCERNS: Impaired cardiopulmonary endurance Impaired muscle flexibility Need for parent/caregiver instruction in Home Exercise Program, Recommendations for improved Postural Alignment, and Proper stretching and strengthening techniques to address musculoskeletal imbalances Patient at risk for functional decline secondary to diagnosis and hospitalization GOALS: Established at evaluation and to be met by time of discharge. Goal #1: Patient to participate in 3-5x/wk Physical Therapy including stretching, generalized strengthening, and cardiopulmonary endurance activities for >30 min/session. Progress: Goal Met: Goal #2: Patient will complete 6 min walk test to monitor cardiopulmonary endurance. Progress: Previously per chart review, patient able to complete 1533' on 06/25/19. Treatment/education provided this date: Education regarding exercise recommendations/precautions. Strengthening exercises: Continue to utilize home gym equipment when not lifting items at work-reports lifting 45-50# consistently at work Stretches: reviewed corner and doorway stretches as well as hamstring stretching Endurance activites: Continue to walk throughout the day as much as tolerated Functional activites: Incorporate stretching with stairs at work and balance activities standing onone leg while brushing teeth Strongly recommend increasing protein consumption with first meal of the day. Thank you for the referral. Joana Castro, PT 9:14 AM [facility] Plan of care note* Plan of Care - Mckenna Salas RN - 05/13/2022 4:57 AM EDT Problem: Breathing Pattern - Ineffective Goal: Improved breathing pattern Outcome: Ongoing Problem: Injury Risk, Abnormal Serum Glucose Level Goal: Glucose level within specified parameters Outcome: Ongoing Problem: Nutrition Deficit, Risk of Goal: Knowledge of nutritional requirements Outcome: Ongoing Goal: Nutrition intake to meet estimated needs Outcome: Ongoing Problem: Sleep Pattern Disturbance Goal: Able to sleep uninterrupted for age-appropriate length of time Outcome: Ongoing Problem: Transition Readiness Goal: Knowledge of discharge instructions Outcome: Ongoing Goal: Able to safely transition to next level of care Outcome: Ongoing Problem: Diarrhea Goal: Knowledge of infection prevention and control procedures Outcome: Ongoing Goal: Decreased stool volume Outcome: Ongoing Problem: Constipation, Risk of Goal: Bowel elimination without discomfort Outcome: Ongoing Problem: Fluid Volume Deficit Goal: Balanced intake and output Outcome: Ongoing [facility] History and physical note* Curtis Cisneros MD - 05/12/2022 8:23 PM EDT HISTORY AND PHYSICAL DATE OF SERVICE: 05/12/2022 ATTENDING PROVIDER: Curtis Cisneros MD PRIMACY CARE PROVIDER: [facility] MD CHIEF COMPLAINT: Constipation REASON FOR HOSPITALIZATION: Acute or unresolved changes in physiologic status HISTORY OF PRESENT ILLNESS: Jay is a 26 y.o. male with a history of Cystic Fibrosis. The history is provided by the patient Jay has been feeling poorly since Friday afternoon. His cough is rare and is nonproductive. He has no other associated respiratory symptoms. He has been doing airway clearance occasionally. His activity level has been the same as usual. He had been tolerating PO up until Friday when he felt abdominal fullness and then had almost immediate vomiting with PO intake. Generally he has 3 bowel movements per day, but has not had a bowel movement in several days. 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 Cepacia complex, B vietnamiensis -- 07/09/21- B. cepacia complex, B vietnamiensis 03/22/21- B.Cepacia Complex, B vietnamiensis -- 09/18/20- MRSA 07/03/20- MRSA 01/03/20- MRSA, B.Cepacia -- 10/11/19- MRSA, B.Cepacia, PSA (r) 06/15/19- MRSA, B.Cepacia, Ach. Xylo. 05/17/19- Staph, B.Cepacia 03/12/19- MRSA, B.Cepacia, Steno. Malt. 01/18/19- MRSA, Burkholderia cepacia complex , Js Albicans 01/11/19- MRSA, Steno. Malto., Js parapsilosis 01/04/19- MRSA 12/28/18- MSSA, Burkholderia cepacia complex *Colt cepacia complex:ssp B vietnamiensis- [facility] -- 11/05/18- MRSA 09/14/18- MRSA, Ach. Xylo. 07/27/18- MRSA, H.Flu- Trichosporon Mucoides 05/25/18- MSSA, PSA (r,) 01/19/18- MSSA, PSA (r,r) Trichosporon Mucoides AFB: (On Zithromax) Held +NTM 01/14/22- Neg 10/08/21-neg 03/22/21- neg 09/18/20- neg 2015- Mycobacterium avium-intracellulare complex REVIEW OF SYSTEMS: Pertinent items are noted in HPI. 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 Cystic fibrosis 10/1995 FTT and steatorrhea Cystic fibrosis - use contact precautions 12/07/2009 Initial Diagnosis: Date: Oct 1995 Reason for referral & symptoms at diagnosis: FTT and steatorrhea Throat/sputum culture at diagnosis: unknown Chest x-ray: unknown Sweat Chloride: unknown 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 Referral: Date: Oct 1995 Patient Age: approx 27 months Referred From:transferred from [facility] Cystic fibrosis exacerbation 04/11/2014 multiple 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 12/07/2009 Esophageal 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 08/01/2010 Gastroesophageal reflux 12/07/2009 Hypersplenism syndrome 12/07/2009 Moderate persistent asthma without complication 12/07/2009 Osteopenia 12/07/2009 Pancreas (digestive gland) works poorly Pancreatic insufficiency due to cystic fibrosis 12/07/2009 Pneumonia 03/12/2019 Portal hypertension 08/01/2010 Short stature 12/07/2009 Past Surgical History: Procedure Laterality Date OTHER SURGICAL HISTORY Splenorenal shunt Oct 2009 PULMONARY ARTERY BANDING HISTORY: Noncontributory DEVELOPMENTAL HISTORY: Milestones: Not pertinent DIET HISTORY: Appetite good DRUG/FOOD ALLERGIES: Allergies Allergen Reactions Vancomycin Itching and Rash Gets Red Man syndrome and pt if not premedicated with benadryl prior to Vancomycin infusions. Cefoxitin Other (See Comments) Severe abdominal pain, diarrhea, rash IMMUNIZATIONS: Not evaluated at this time MEDICATIONS: Medications Prior to Admission Medication Sig Dispense Refill Last Dose CITALOPRAM HYDROBROMIDE PO Take 50 mg by mouth daily Past Week phytonadione (MEPHYTON) 5 MG TABS tablet Take 1 Tab by mouth. Take 5mg on Friday, Friday and Friday 45 Tablet 3 Taking vitamin D (ERGOCALCIFEROL) 1.25 MG (31919 UT) capsule Take 1 Capsule (50,000 Units) by mouth every 7 days Indications: Osteoporosis 12 Capsule 3 Taking polyethylene glycol (MIRALAX;GLYCOLAX) 17 GM/SCOOP powder Take 17 g by mouth daily Take one scoop daily mixed in 8 ounces fluid. (may increase up to 2-3 times a day prn) 578 g 11 Taking albuterol 108 (90 Base) MCG/ACT inhaler inhale 2 puffs by mouth four times a day 1 Each 11 Taking fluticasone-salmeterol (ADVAIR) 500-50 MCG/DOSE diskus inhaler Inhale 1 Puff into the lungs 2 timesdaily Rinse mouth after each use. 1 Each 11 Taking CREON 40238-412047 units capsule Take 3 Capsules (108,000 Units) by mouth Before Meals and 2 [id number] Capsule 11 Taking fluticasone (FLONASE) 50 MCG/ACT nasal spray 1 Calvin by Each Nare route 2 times daily 1 g 0 Taking Sndsyaam-Rveeiqx-Nsezfc&Ivacaf (TRIKAFTA) 100-50-75 & 150 MG oral tablet therapy pack Am dose only 84 Tablet 11 Taking amLODIPine (NORVASC) 2.5 MG tablet Take 4 Tablets (10 mg) by mouth daily 360 Tablet 3 Taking insulin detemir (LEVEMIR) 100 UNIT/ML SOLN injection Inject 13 Units into the skin nightly at bedtime bedtime Indications: CFRD (Patient taking differently: Inject 8 Units into the skin nightly at bedtime bedtime Indications: CFRD) 3 Vial 3 Taking cetirizine (ZYRTEC) 10 MG tablet Take 1 Tab (10 mg) by mouth daily as needed for Allergies 30 Tab 11 Taking NONFORMULARY Novolog Meals: 1 units of Rapid Acting Insulin for 10 grams of Carbohydrate Snacks: 1 unit of Rapid Acting Insulin for 15 grams of Carbohydrate Correction Factor: BS > 150 add 1 unit BS > 190 add 2 units BS > 230 add 3 units BS > 270 add 4 units BS > 310 add 5 units 1 Each 0 Taking fluticasone (FLOVENT HFA) 220 MCG/ACT 220 mcg inhaler Inhale 1 Puff into the lungs 2 times daily 1 Each 11 Unknown MVW COMPLETE FORMULATION (MVW COMPLETE FORMULATION) CAPS Take 2 Capsules by mouth daily 60 Capsule 11 tobramycin (MUKESH) 300 MG/5ML nebulizer solution Use 5 mL (300 mg) by nebulization every 12 hours Use every other month. (Patient not taking: No sig reported) 56 Ampule 6 Not Taking dornase alpha (PULMOZYME) 1 MG/ML nebulizer solution Use 2.5 mL (2.5 mg) by nebulization daily 225 mL 3 Unknown Respiratory Therapy Supplies (BOB ALTERA NEBULIZER HANDSET) MISC 1 Each by Does not apply route 3 times daily To be used to nebulize cayston 1 Each 5 Spacer/Aero-Holding Chambers (OPTICHAMBER DINO) JEAN-PAUL DEVICE by Other route Use as directed with metered-dose inhaler. 1 Each 0 Misc. Devices (ACAPELLA) MISC by Does not apply route HANDICAP PLACARD Permanent Placard, for the purpose of a disability. 1 Each 0 Glucagon, rDNA, (GLUCAGON EMERGENCY IJ) Inject 1 mg into the muscle Use as instructed. (Patient not taking: No sig reported) SOCIAL/FAMILY HISTORY: Smoking/Alcohol/Drug Use or Exposure: No Family History Problem Relation Age of Onset High Blood Pressure Mother Cancer Mother breast Cystic Fibrosis Neg Hx VITAL SIGNS: Vitals: 05/12/22 1620 BP: (!) 147/89 Pulse: 100 Resp: 16 Temp: Weight: Weight - Scale: (!) 37.9 kg (@WFAPERCENT@) Height: @HT@ (@SFAPERCENT@) BMI: Body mass index is 16.4 kg/m . @BMIFAPERCENT@ PHYSICAL EXAM: General: alert, well appearing, no acute distress Hydration: mucous membranes moist Head: normocephalic Eyes: pupils equal round and reactive to light Neck: nontender, no mass, no focal lymphadenopathy, no focal lymphadenopathy Chest:/Lung: decreased air entry, rales in bilateral lower gustafson Cardiovascular: regurlar rate and rhythm Abdomen: soft, no guarding Extremities: no clubbing, cyanosis or edema of the extremities, no deformity Skin: warm, dry, no rash, no lesions Neuro: alert, normal tone, no focal deficit DIAGNOSTIC STUDIES REVIEWED: CBC Recent Labs 05/12/22 1012 WBC 20.8* RBC 5.12 HGB 16.2 HCT 46.1 MCV 90.0 MCH 31.6 MCHC 35.1 RDW 13.3 PLT 303 MPV 9.6 DIFFCOMPLETE Manual BMP Recent Labs 05/12/22 1012 NA 131* K 8.3* CL 88* CO2 14.2* BUN 45* GLU 324* CREATININE 1.78* CALCIUM 8.1 [ CMP Recent Labs 05/12/22 1012 NA 131* K 8.3* CL 88* CO2 14.2* BUN 45* GLU 324* BILITOT 1.0 AST 77* ALT 38 ALKPHOS 889* CALCIUM 8.1 PROT 8.3 ALB 3.0* CREATININE 1.78* ASSESSMENT: Jay is a 26 y.o. male with cystic fibrosis, biliary cirrhosis, diabetes mellitus, pancratic insufficiency, osteopenia, abpa who is presenting with 3 days of decreased PO intake, constipation, nausea, and vomitting. Abdominal x- ray without obvious obstruction. He has leukocytosis and acute kidneyinjury. There was some hyperkalemia noted on initial exams in the setting of RITA and his tachycardia has responded well to fluids. We will plan to hydrate him. He is tolerating PO with anti-emetics. PLAN: RITA: Impression: secondary to poor PO intake, now tolerating PO Plan: serial metabolic panels. Anticipate hyperkalemia will improve with hydration. CF/GI: Impression: Intractable nausea/vomitting Plan: Symptoms have improved with anti-emetics Impression: constipation without overt obstruction on imaging Plan: Senna and Miralax PO CF/endocrine: Impression: stable on current regimen Plan: Continue to monitor blood glucose and use insulin at current doses. CF/ liver: Impression: unchanged Plan: continue current medications EDUCATION: Discussion with patient (diagnosis, plan) DISCHARGE PLANNING: Anticipate discharge home in 48-72 hours after acute problem improves Time spent on the history, physical examination, assessment, plan, and coordination of care for this patient was 50 minutes. [facility] History and physical note* Curtis Cisneros MD - 05/12/2022 8:23 PM EDT HISTORY AND PHYSICAL DATE OF SERVICE: 05/12/2022 ATTENDING PROVIDER: Curtis Cisneros MD PRIMACY CARE PROVIDER: [facility], MD Marybeth CHIEF COMPLAINT: Constipation REASON FOR HOSPITALIZATION: Acute or unresolved changes in physiologic status HISTORY OF PRESENT ILLNESS: Jay is a 26 y.o. male with a history of Cystic Fibrosis. The history is provided by the patient Jay has been feeling poorly since Friday afternoon. His cough is rare and is nonproductive. He has no other associated respiratory symptoms. He has been doing airway clearance occasionally. His activity level has been the same as usual. He had been tolerating PO up until Friday when he felt abdominal fullness and then had almost immediate vomiting with PO intake. Generally he has 3 bowel movements per day, but has not had a bowel movement in several days. 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 Cepacia complex, B vietnamiensis -- 07/09/21- B. cepacia complex, B vietnamiensis 03/22/21- B.Cepacia Complex, B vietnamiensis -- 09/18/20- MRSA 07/03/20- MRSA 01/03/20- MRSA, B.Cepacia -- 10/11/19- MRSA, B.Cepacia, PSA (r) 06/15/19- MRSA, B.Cepacia, Ach. Xylo. 05/17/19- Staph, B.Cepacia 03/12/19- MRSA, B.Cepacia, Steno. Malt. 01/18/19- MRSA, Burkholderia cepacia complex , Js Albicans 01/11/19- MRSA, Steno. Malto., Js parapsilosis 01/04/19- MRSA 12/28/18- MSSA, Burkholderia cepacia complex *Colt cepacia complex:ssp B vietnamiensis- [facility] -- 11/05/18- MRSA 09/14/18- MRSA, Ach. Xylo. 07/27/18- MRSA, H.Flu- Trichosporon Mucoides 05/25/18- MSSA, PSA (r,) 01/19/18- MSSA, PSA (r,r) Trichosporon Mucoides AFB: (On Zithromax) Held +NTM 01/14/22- Neg 10/08/21-neg 03/22/21- neg 09/18/20- neg 2016- Mycobacterium avium-intracellulare complex REVIEW OF SYSTEMS: Pertinent items are noted in HPI. 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 Cystic fibrosis 10/1995 FTT and steatorrhea Cystic fibrosis - use contact precautions 12/07/2009 Initial Diagnosis: Date: Oct 1995 Reason for referral & symptoms at diagnosis: FTT and steatorrhea Throat/sputum culture at diagnosis: unknown Chest x-ray: unknown Sweat Chloride: unknown 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 Referral: Date: Oct 1995 Patient Age: approx 27 months Referred From:transferred from [facility] Cystic fibrosis exacerbation 04/11/2014 multiple 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 12/07/2009 Esophageal 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 08/01/2010 Gastroesophageal reflux 12/07/2009 Hypersplenism syndrome 12/07/2009 Moderate persistent asthma without complication 12/07/2009 Osteopenia 12/07/2009 Pancreas (digestive gland) works poorly Pancreatic insufficiency due to cystic fibrosis 12/07/2009 Pneumonia 03/12/2019 Portal hypertension 08/01/2010 Short stature 12/07/2009 Past Surgical History: Procedure Laterality Date OTHER SURGICAL HISTORY Splenorenal shunt Oct 2009 PULMONARY ARTERY BANDING HISTORY: Noncontributory DEVELOPMENTAL HISTORY: Milestones: Not pertinent DIET HISTORY: Appetite good DRUG/FOOD ALLERGIES: Allergies Allergen Reactions Vancomycin Itching and Rash Gets Red Man syndrome and pt if not premedicated with benadryl prior to Vancomycin infusions. Cefoxitin Other (See Comments) Severe abdominal pain, diarrhea, rash IMMUNIZATIONS: Not evaluated at this time MEDICATIONS: Medications Prior to Admission Medication Sig Dispense Refill Last Dose CITALOPRAM HYDROBROMIDE PO Take 50 mg by mouth daily Past Week phytonadione (MEPHYTON) 5 MG TABS tablet Take 1 Tab by mouth. Take 5mg on Friday, Friday and Friday 45 Tablet 3 Taking vitamin D (ERGOCALCIFEROL) 1.25 MG (52306 UT) capsule Take 1 Capsule (50,000 Units) by mouth every 7 days Indications: Osteoporosis 12 Capsule 3 Taking polyethylene glycol (MIRALAX;GLYCOLAX) 17 GM/SCOOP powder Take 17 g by mouth daily Take one scoop daily mixed in 8 ounces fluid. (may increase up to 2-3 times a day prn) 578 g 11 Taking albuterol 108 (90 Base) MCG/ACT inhaler inhale 2 puffs by mouth four times a day 1 Each 11 Taking fluticasone-salmeterol (ADVAIR) 500-50 MCG/DOSE diskus inhaler Inhale 1 Puff into the lungs 2 timesdaily Rinse mouth after each use. 1 Each 11 Taking CREON [id number] units capsule Take 3 Capsules (108,000 Units) by mouth Before Meals and 2 [id number] Capsule 11 Taking fluticasone (FLONASE) 50 MCG/ACT nasal spray 1 Calvin by Each Nare route 2 times daily 1 g 0 Taking Axtivlzk-Yllojlb-Ldrwfk&Ivacaf (TRIKAFTA) 100-50-75 & 150 MG oral tablet therapy pack Am dose only 84 Tablet 11 Taking amLODIPine (NORVASC) 2.5 MG tablet Take 4 Tablets (10 mg) by mouth daily 360 Tablet 3 Taking insulin detemir (LEVEMIR) 100 UNIT/ML SOLN injection Inject 13 Units into the skin nightly at bedtime bedtime Indications: CFRD (Patient taking differently: Inject 8 Units into the skin nightly at bedtime bedtime Indications: CFRD) 3 Vial 3 Taking cetirizine (ZYRTEC) 10 MG tablet Take 1 Tab (10 mg) by mouth daily as needed for Allergies 30 Tab 11 Taking NONFORMULARY Novolog Meals: 1 units of Rapid Acting Insulin for 10 grams of Carbohydrate Snacks: 1 unit of Rapid Acting Insulin for 15 grams of Carbohydrate Correction Factor: BS > 150 add 1 unit BS > 190 add 2 units BS > 230 add 3 units BS > 270 add 4 units BS > 310 add 5 units 1 Each 0 Taking fluticasone (FLOVENT HFA) 220 MCG/ACT 220 mcg inhaler Inhale 1 Puff into the lungs 2 times daily 1 Each 11 Unknown MVW COMPLETE FORMULATION (MVW COMPLETE FORMULATION) CAPS Take 2 Capsules by mouth daily 60 Capsule 11 tobramycin (MUKESH) 300 MG/5ML nebulizer solution Use 5 mL (300 mg) by nebulization every 12 hours Use every other month. (Patient not taking: No sig reported) 56 Ampule 6 Not Taking dornase alpha (PULMOZYME) 1 MG/ML nebulizer solution Use 2.5 mL (2.5 mg) by nebulization daily 225 mL 3 Unknown Respiratory Therapy Supplies (BOB ALTERA NEBULIZER HANDSET) MISC 1 Each by Does not apply route 3 times daily To be used to nebulize [place] 1 Each 5 Spacer/Aero-Holding Chambers (OPTICHAMBER DINO) JEAN-PAUL DEVICE by Other route Use as directed with metered-dose inhaler. 1 Each 0 Misc. Devices (ACAPELLA) MISC by Does not apply route HANDICAP PLACARD Permanent Placard, for the purpose of a disability. 1 Each 0 Glucagon, rDNA, (GLUCAGON EMERGENCY IJ) Inject 1 mg into the muscle Use as instructed. (Patient not taking: No sig reported) SOCIAL/FAMILY HISTORY: Smoking/Alcohol/Drug Use or Exposure: No Family History Problem Relation Age of Onset High Blood Pressure Mother Cancer Mother breast Cystic Fibrosis Neg Hx VITAL SIGNS: Vitals: 05/12/22 1620 BP: (!) 147/89 Pulse: 100 Resp: 16 Temp: Weight: Weight - Scale: (!) 37.9 kg (@WFAPERCENT@) Height: @HT@ (@SFAPERCENT@) BMI: Body mass index is 16.4 kg/m . @BMIFAPERCENT@ PHYSICAL EXAM: General: alert, well appearing, no acute distress Hydration: mucous membranes moist Head: normocephalic Eyes: pupils equal round and reactive to light Neck: nontender, no mass, no focal lymphadenopathy, no focal lymphadenopathy Chest:/Lung: decreased air entry, rales in bilateral lower gustafson Cardiovascular: regurlar rate and rhythm Abdomen: soft, no guarding Extremities: no clubbing, cyanosis or edema of the extremities, no deformity Skin: warm, dry, no rash, no lesions Neuro: alert, normal tone, no focal deficit DIAGNOSTIC STUDIES REVIEWED: CBC Recent Labs 05/12/22 1012 WBC 20.8* RBC 5.12 HGB 16.2 HCT 46.1 MCV 90.0 MCH 31.6 MCHC 35.1 RDW 13.3 PLT 303 MPV 9.6 DIFFCOMPLETE Manual BMP Recent Labs 05/12/22 1012 NA 131* K 8.3* CL 88* CO2 14.2* BUN 45* GLU 324* CREATININE 1.78* CALCIUM 8.1 [ CMP Recent Labs 05/12/22 1012 NA 131* K 8.3* CL 88* CO2 14.2* BUN 45* GLU 324* BILITOT 1.0 AST 77* ALT 38 ALKPHOS 889* CALCIUM 8.1 PROT 8.3 ALB 3.0* CREATININE 1.78* ASSESSMENT: Jay is a 26 y.o. male with cystic fibrosis, biliary cirrhosis, diabetes mellitus, pancratic insufficiency, osteopenia, abpa who is presenting with 3 days of decreased PO intake, constipation, nausea, and vomitting. Abdominal x- ray without obvious obstruction. He has leukocytosis and acute kidneyinjury. There was some hyperkalemia noted on initial exams in the setting of RITA and his tachycardia has responded well to fluids. We will plan to hydrate him. He is tolerating PO with anti-emetics. PLAN: RITA: Impression: secondary to poor PO intake, now tolerating PO Plan: serial metabolic panels. Anticipate hyperkalemia will improve with hydration. CF/GI: Impression: Intractable nausea/vomitting Plan: Symptoms have improved with anti-emetics Impression: constipation without overt obstruction on imaging Plan: Senna and Miralax PO CF/endocrine: Impression: stable on current regimen Plan: Continue to monitor blood glucose and use insulin at current doses. CF/ liver: Impression: unchanged Plan: continue current medications EDUCATION: Discussion with patient (diagnosis, plan) DISCHARGE PLANNING: Anticipate discharge home in 48-72 hours after acute problem improves Time spent on the history, physical examination, assessment, plan, and coordination of care for this patient was 50 minutes. [facility]* Magalie Kuhn RN - 05/12/2022 3:36 PM EDT Pritesh notified of pt's departure. [facility]* Magalie Kuhn RN - 05/12/2022 3:36 PM EDT Pritesh notified of pt's departure. * Magalie Kuhn RN - 05/12/2022 3:25 PM EDT Pt resting comfortably, updated on plan of care. Pt states he is feeling better at this time. * Magalie Kuhn RN - 05/12/2022 2:37 PM EDT Jay Barber [id number] Point of Care testing Glucometer: Venous blood drawn 427 mg/dl Results of < 45 or > 450 mg/dl need to be confirmed by the laboratory REFERENCE RANGE: 60-110 mg/dl. Two identifiers from patient verified. Test performed at bedside. Specimen labelled in the presenceof the patient. * Magalie Kuhn RN - 05/12/2022 2:20 PM EDT Nursing report given to receiving nurse. This nurse to call when patient leaves. * Magalie Kuhn RN - 05/12/2022 2:01 PM EDT Pt up to restroom unassisted. * Magalie Kuhn RN - 05/12/2022 1:35 PM EDT Pt vomiting, fellow aware. * Magalie Kuhn RN - 05/12/2022 11:42 AM EDT Pt up to restroom, unassisted. Pt tolerated well. Pt reports PO of 240cc gatorade and feels well. * Magalie Kuhn RN - 05/12/2022 10:42 AM EDT Critical lab value K of 8.3 (hemolyzed) verbally received from laboratory staff. Dr. Ryan (current provider) was notified at this time. Immediate interventions identified in reponse: redraw K. * Magalie Kuhn RN - 05/12/2022 10:04 AM EDT IV attempted x2 in R forearm unsuccessfully, pt tolerated well. EKG done and given to provider. * Lolis James RN - 05/12/2022 10:00 AM EDT This RN to bedside to insert IV via ultrasound guidance. Pt awake, alert. NAD. Resps easy. Pt asking for gatorade after IV placed and fluids started. phil Mejias RN notified. * Sabina Larios MD - 05/12/2022 8:52 AM EDT Images from the original note were not included. Jay Julien Barber : 1995 Chief Complaint Patient presents with Emesis Tachycardia Allergies Allergen Reactions Vancomycin Itching and Rash Gets Red Man syndrome and pt if not premedicated with benadryl prior to Vancomycin infusions. Cefoxitin Other (See Comments) Severe abdominal pain, diarrhea, rash DOS: 05/12/2022 Jay is a 26 y.o. male with Cystic fibrosis and subsequent diabetes mellitus, pancreatic insufficiency, biliary cirrhosis, osteopenia, short stature, as well as CEDRIC, moderate persistent asthma, allergic rhinitis who presents for two days of abdominal pain and emesis. Patient reports he has not been able to keep any food or fluids down for the past two days. For thepast 24 hours, he reports vomiting 1-2 x per hour and lower abdominal pain. He has also not had a bowel movement in the past two days which is very unusual for him. Jay reports he has also been having more coughing fits, is getting short of breath more quickly than usual, and feeling very dizzy and tachycardic. Denies fevers and recent sick contacts. The history is provided by the patient. Review of Systems Constitutional: Positive for appetite change. Negative for fatigue and fever. HENT: Positive for congestion. Negative for rhinorrhea and sore throat. Respiratory: Positive for cough and shortness of breath. Negative for chest tightness. Cardiovascular: Negative for chest pain. Gastrointestinal: Positive for abdominal pain, constipation, nausea and vomiting. Negative for diarrhea. Genitourinary: Negative for difficulty urinating and dysuria. Musculoskeletal: Negative for gait problem. Skin: Positive for pallor. Negative for color change and rash. Neurological: Positive for weakness. Negative for dizziness and headaches. 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 Cystic fibrosis 10/1995 FTT and steatorrhea Cystic fibrosis - use contact precautions 12/07/2009 Initial Diagnosis: Date: Oct 1995 Reason for referral & symptoms at diagnosis: FTT and steatorrhea Throat/sputum culture at diagnosis: unknown Chest x-ray: unknown Sweat Chloride: unknown 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 Referral: Date: Oct 1995 Patient Age: approx 27 months Referred From:transferred from &C Cystic fibrosis exacerbation 04/11/2014 multiple 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 12/07/2009 Esophageal 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 08/01/2010 Gastroesophageal reflux 12/07/2009 Hypersplenism syndrome 12/07/2009 Moderate persistent asthma without complication 12/07/2009 Osteopenia 12/07/2009 Pancreas (digestive gland) works poorly Pancreatic insufficiency due to cystic fibrosis 12/07/2009 Pneumonia 03/12/2019 Portal hypertension 08/01/2010 Short stature 12/07/2009 Past Surgical History: Procedure Laterality Date OTHER SURGICAL HISTORY Splenorenal shunt Oct 2009 PULMONARY ARTERY BANDING Pediatric History Patient Parents Nic Barber (Mother) Ed Barber (Father) Other Topics Concern Behavioral problems Not Asked Interpersonal relationships Not Asked Sad or not enjoying activities Not Asked Suicidal thoughts Not Asked Poor school performance Not Asked Reading difficulties Not Asked Speech difficulties Not Asked Writing difficulties Not Asked Inadequate sleep Not Asked Excessive TV viewing Not Asked Excessive video game use Not Asked Inadequate exercise Not Asked Sports related Not Asked Poor diet Not Asked Poor oral hygiene Not Asked Bike safety Not Asked Vehicle safety Not Asked Social History Narrative Not on file ED Triage Vitals Date and Time Temp Temp src Pulse Resp BP SpO2 Weight User 05/12/22 0845 36.8 C (98.2 F) Temporal 140 -- 124/80 95 % 37.6 kg AD Physical Exam Vitals and nursing note reviewed. Constitutional: General: He is not in acute distress. Appearance: He is not toxic-appearing or diaphoretic. Comments: Patient with short stature and very slender HENT: Head: Normocephalic and atraumatic. Right Ear: Tympanic membrane, ear canal and external ear normal. Left Ear: Tympanic membrane, ear canal and external ear normal. Nose: Nose normal. Mouth/Throat: Mouth: Mucous membranes are moist. Pharynx: Oropharynx is clear. Eyes: Extraocular Movements: Extraocular movements intact. Pupils: Pupils are equal, round, and reactive to light. Neck: Musculoskeletal: Normal range of motion and neck supple. No muscular tenderness. Cardiovascular: Rate and Rhythm: Tachycardia present. Pulses: Normal pulses. Heart sounds: Normal heart sounds. No murmur heard. Pulmonary: Effort: Pulmonary effort is normal. No respiratory distress. Breath sounds: Normal breath sounds. There is a cough present. Chest: Chest wall: No tenderness. Abdominal: General: Abdomen is flat. Bowel sounds are normal. There is no distension. Palpations: Abdomen is soft. There is no hepatomegaly or mass. Tenderness: There is abdominal tenderness (epigastric and periumbilical) in the right lower quadrant, periumbilical area, suprapubic area and left lower quadrant. There is no guarding or rebound. Hernia: No hernia is present. Musculoskeletal: Cervical back: Normal range of motion and neck supple. No rigidity. No muscular tenderness. Lymphadenopathy: Cervical: No cervical adenopathy. Skin: General: Skin is warm and dry. Capillary Refill: Capillary refill takes 2 to 3 seconds. Findings: No rash. Neurological: General: No focal deficit present. Mental Status: He is alert and oriented to person, place, and time. caprefill Procedures MDM Number of Diagnoses or Management Options Cystic fibrosis Intractable nausea and vomiting Diagnosis management comments: Jay is a 26 y.o. male with Cystic fibrosis and related complications who presents for abdominal pain and emesis. Patient in no acute distress. Vital signs significant for tachycardia to 140's. Differential diagnosis a this time includes viral gastro, distal intestinal obstructive syndrome, pancreatitis. Will obtain CBC, CMP, Lipase, EKG, RFA negative and KUB as well as give zofran and IVF bolus. KUB without obstruction, organomegaly or abnormal calcifications visualized. EKG with sinus tachycardia. CBC with WBC 20.8, CMP with grossly abnormal electrolytes, mild metabolic acidosis (Bicarb 14.2), Lipase 9, RFA negative. Pancreatitis less likely with Lipase 9. Although KUB without obstruction, patient may still have partial obstruction. With presence of leukocytosis, acute appendicitis remains on the differential, however patient has remained afebrile and his exam is not consistent with localized RLQ pain or rebound. Due to patient's electrolyte disturbances, decision made to admit patient for close observational and rehydration. Discussed patient's case with Dr. Curtis Cisneros at [facility]. Patient was transferred to [facility] at [facility] for admission and further management. ED Course: Diagnosis' considered: viral gastro vs JOSE vs pancreatitis vs acute appy Labs/Radiology: CBC, CMP, Lipase, KUB, RFA Consults: No orders of the defined types were placed in this encounter. Medical Record/Transferring Institution Record: Treatment/Reassessment: Encounter Documentation/Handoff: Medical Decision Making as of 05/13/22 0853 Sun May 12, 2022 0911 26 yom, history of CF with CF related complications, presents with 2 days of abd pain and emesis. Unable to keep anything down. Heart feels like it is racing. No fevers. Has not had a BM in 2 days. Exam: alert and oriented. Laying comfortably in bed. Dizzy upon standing. MMM, cap refill 3-4 sec. Tachycardic, regular rhythm. CTAB. Abd tender epigastric and periumbilical. Plan: IV, IVF, serum labs, RFA, EKG, Zofran, EKG [ES] 0950 ABD IMPRESSION: There are cystic fibrosis changes in the visualized lung bases. Surgical clipsare seen in the left upper quadrant. There is a glucose monitor. There is a nonspecific bowel gas pattern. No bowel obstruction is seen. There is some stool in the colon. The fecal load is decreased from the last exam. No organomegaly or abnormal calcifications are identified. The bones are stable in appearance. [ES] 1025 WBC(!): 20.8 [DV] 1047 Lipase(!): Lipase 9(!) [DV] 1048 Comprehensive metabolic panel(!!): Sodium 131(!) Potassium 8.3(!!) Chloride 88(!) Carbon Dioxide 14.2(!) BUN 45(!) Glucose 324(!) Total Bilirubin 1.0 AST 77(!) ALT 38 Alkaline Phosphatase 889(!) Calcium 8.1 Protein, Total 8.3 Albumin 3.0(!) Creatinine 1.78(!) [DV] 1101 WB Potassium drawn. Vitals with improvement to tachycardia following NS bolus. HR 100. [DV] 1109 Potassium,WB(!!): Potassium, WB 6.0(!!) [DV] [address] Cisneros, [facility], who accepted patient for admission for IVF, tachycardia, emesis. Dr. Cisneros will call back as he needs to discuss with team regarding transfer/admission. Patient updated and aware of plan. [ES] 1316 keenan Meyer for transfer to [place]. [facility] and working on obtaining ALS at this time. [ES] 1324 RFA neg [ES] 1345 Pt with ongoing emesis, Reglan ordered. [ES] 1504 Home insulin ordered for BGT of 427. [ES] 1535 VSS. Patient transferred to [place] via [facility]. [DV] Medical Decision Making User Index [DV] Karlene Chacon DO [ES] Sabina Larios MD Final Clinical Impression/Diagnosis as of 05/13/22 0853 Intractable nausea and vomiting Cystic fibrosis Karlene Chacon DO PGY-1 Pediatric Resident 05/12/2022 3:38 PM I have seen and evaluated the patient. I have obtained the olson portions of the history and physicalexamination. I have discussed the patient with the resident. I have reviewed the resident's documentation and agree with it. The medical decision making was done together with the resident and is as documented in the resident's note. Sabina Larios MD Pediatric Emergency Medicine, PGY4 * Be Zaidi RN - 05/12/2022 8:44 AM EDT Patient came to the ED for vomiting since Friday night and elevated HR since last night. Patient c/o worsening abdomen pain. Patient voided 1 time today. Patient took 2 CoVid tests, negative. Pt alert and ambulatory, skin pink warm and dry, lungs clear and resp easy. [facility]* Magalie Kuhn RN - 05/12/2022 3:25 PM EDT Pt resting comfortably, updated on plan of care. Pt states he is feeling better at this time. [facility]* Magalie Kuhn RN - 05/12/2022 2:37 PM EDT Jay Barber [id number] Point of Care testing Glucometer: Venous blood drawn 427 mg/dl Results of < 45 or > 450 mg/dl need to be confirmed by the laboratory REFERENCE RANGE: 60-110 mg/dl. Two identifiers from patient verified. Test performed at bedside. Specimen labelled in the presenceof the patient. [facility]* Magalie Kuhn RN - 05/12/2022 2:20 PM EDT Nursing report given to receiving nurse. This nurse to call when patient leaves. [facility]* Magalie Kuhn RN - 05/12/2022 2:01 PM EDT Pt up to restroom unassisted. [facility]* Magalie Kuhn RN - 05/12/2022 1:35 PM EDT Pt vomiting, fellow aware. [facility] NoteIs this a pre-procedure screening test?->No Release to patient->[facility] [id number] Emergency department Note* Magalie Kuhn RN - 05/12/2022 11:42 AM EDT Pt up to restroom, unassisted. Pt tolerated well. Pt reports PO of 240cc gatorade and feels well. [facility]* Magalie Kuhn RN - 05/12/2022 10:42 AM EDT Critical lab value K of 8.3 (hemolyzed) verbally received from laboratory staff. Dr. Ryan (current provider) was notified at this time. Immediate interventions identified in reponse: hilary Salinas. [facility]* Magalie Kuhn RN - 05/12/2022 10:04 AM EDT IV attempted x2 in R forearm unsuccessfully, pt tolerated well. EKG done and given to provider. [facility]* Lolis James RN - 05/12/2022 10:00 AM EDT This RN to bedside to insert IV via ultrasound guidance. Pt awake, alert. NAD. Resps easy. Pt asking for gatorade after IV placed and fluids started. phil Mejias RN notified. [facility] Emergency [facility] Note* Sabina Larios MD - 05/12/2022 8:52 AM EDT Images from the original note were not included. Jay Julien Elisabeth : 1995 Chief Complaint Patient presents with Emesis Tachycardia Allergies Allergen Reactions Vancomycin Itching and Rash Gets Red Man syndrome and pt if not premedicated with benadryl prior to Vancomycin infusions. Cefoxitin Other (See Comments) Severe abdominal pain, diarrhea, rash DOS: 05/12/2022 Jay is a 26 y.o. male with Cystic fibrosis and subsequent diabetes mellitus, pancreatic insufficiency, biliary cirrhosis, osteopenia, short stature, as well as CEDRIC, moderate persistent asthma, allergic rhinitis who presents for two days of abdominal pain and emesis. Patient reports he has not been able to keep any food or fluids down for the past two days. For thepast 24 hours, he reports vomiting 1-2 x per hour and lower abdominal pain. He has also not had a bowel movement in the past two days which is very unusual for him. Jay reports he has also been having more coughing fits, is getting short of breath more quickly than usual, and feeling very dizzy and tachycardic. Denies fevers and recent sick contacts. The history is provided by the patient. Review of Systems Constitutional: Positive for appetite change. Negative for fatigue and fever. HENT: Positive for congestion. Negative for rhinorrhea and sore throat. Respiratory: Positive for cough and shortness of breath. Negative for chest tightness. Cardiovascular: Negative for chest pain. Gastrointestinal: Positive for abdominal pain, constipation, nausea and vomiting. Negative for diarrhea. Genitourinary: Negative for difficulty urinating and dysuria. Musculoskeletal: Negative for gait problem. Skin: Positive for pallor. Negative for color change and rash. Neurological: Positive for weakness. Negative for dizziness and headaches. 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 Cystic fibrosis 10/1995 FTT and steatorrhea Cystic fibrosis - use contact precautions 12/07/2009 Initial Diagnosis: Date: Oct 1995 Reason for referral & symptoms at diagnosis: FTT and steatorrhea Throat/sputum culture at diagnosis: unknown Chest x-ray: unknown Sweat Chloride: unknown 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 Referral: Date: Oct 1995 Patient Age: approx 27 months Referred From:transferred from [facility] Cystic fibrosis exacerbation 04/11/2014 multiple 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 12/07/2009 Esophageal 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 08/01/2010 Gastroesophageal reflux 12/07/2009 Hypersplenism syndrome 12/07/2009 Moderate persistent asthma without complication 12/07/2009 Osteopenia 12/07/2009 Pancreas (digestive gland) works poorly Pancreatic insufficiency due to cystic fibrosis 12/07/2009 Pneumonia 03/12/2019 Portal hypertension 08/01/2010 Short stature 12/07/2009 Past Surgical History: Procedure Laterality Date OTHER SURGICAL HISTORY Splenorenal shunt Oct 2009 PULMONARY ARTERY BANDING Pediatric History Patient Parents Nic Barber (Mother) Ed Barber (Father) Other Topics Concern Behavioral problems Not Asked Interpersonal relationships Not Asked Sad or not enjoying activities Not Asked Suicidal thoughts Not Asked Poor school performance Not Asked Reading difficulties Not Asked Speech difficulties Not Asked Writing difficulties Not Asked Inadequate sleep Not Asked Excessive TV viewing Not Asked Excessive video game use Not Asked Inadequate exercise Not Asked Sports related Not Asked Poor diet Not Asked Poor oral hygiene Not Asked Bike safety Not Asked Vehicle safety Not Asked Social History Narrative Not on file ED Triage Vitals Date and Time Temp Temp src Pulse Resp BP SpO2 Weight User 05/12/22 0845 36.8 C (98.2 F) Temporal 140 -- 124/80 95 % 37.6 kg AD Physical Exam Vitals and nursing note reviewed. Constitutional: General: He is not in acute distress. Appearance: He is not toxic-appearing or diaphoretic. Comments: Patient with short stature and very slender HENT: Head: Normocephalic and atraumatic. Right Ear: Tympanic membrane, ear canal and external ear normal. Left Ear: Tympanic membrane, ear canal and external ear normal. Nose: Nose normal. Mouth/Throat: Mouth: Mucous membranes are moist. Pharynx: Oropharynx is clear. Eyes: Extraocular Movements: Extraocular movements intact. Pupils: Pupils are equal, round, and reactive to light. Neck: Musculoskeletal: Normal range of motion and neck supple. No muscular tenderness. Cardiovascular: Rate and Rhythm: Tachycardia present. Pulses: Normal pulses. Heart sounds: Normal heart sounds. No murmur heard. Pulmonary: Effort: Pulmonary effort is normal. No respiratory distress. Breath sounds: Normal breath sounds. There is a cough present. Chest: Chest wall: No tenderness. Abdominal: General: Abdomen is flat. Bowel sounds are normal. There is no distension. Palpations: Abdomen is soft. There is no hepatomegaly or mass. Tenderness: There is abdominal tenderness (epigastric and periumbilical) in the right lower quadrant, periumbilical area, suprapubic area and left lower quadrant. There is no guarding or rebound. Hernia: No hernia is present. Musculoskeletal: Cervical back: Normal range of motion and neck supple. No rigidity. No muscular tenderness. Lymphadenopathy: Cervical: No cervical adenopathy. Skin: General: Skin is warm and dry. Capillary Refill: Capillary refill takes 2 to 3 seconds. Findings: No rash. Neurological: General: No focal deficit present. Mental Status: He is alert and oriented to person, place, and time. caprefill Procedures MDM Number of Diagnoses or Management Options Cystic fibrosis Intractable nausea and vomiting Diagnosis management comments: Jay is a 26 y.o. male with Cystic fibrosis and related complications who presents for abdominal pain and emesis. Patient in no acute distress. Vital signs significant for tachycardia to 140's. Differential diagnosis a this time includes viral gastro, distal intestinal obstructive syndrome, pancreatitis. Will obtain CBC, CMP, Lipase, EKG, RFA negative and KUB as well as give zofran and IVF bolus. KUB without obstruction, organomegaly or abnormal calcifications visualized. EKG with sinus tachycardia. CBC with WBC 20.8, CMP with grossly abnormal electrolytes, mild metabolic acidosis (Bicarb 14.2), Lipase 9, RFA negative. Pancreatitis less likely with Lipase 9. Although KUB without obstruction, patient may still have partial obstruction. With presence of leukocytosis, acute appendicitis remains on the differential, however patient has remained afebrile and his exam is not consistent with localized RLQ pain or rebound. Due to patient's electrolyte disturbances, decision made to admit patient for close observational and rehydration. Discussed patient's case with Dr. Curtis Cisneros at [facility]. Patient was transferred to [facility] at [facility] for admission and further management. ED Course: Diagnosis' considered: viral gastro vs JOSE vs pancreatitis vs acute appy Labs/Radiology: CBC, CMP, Lipase, KUB, RFA Consults: No orders of the defined types were placed in this encounter. Medical Record/Transferring Institution Record: Treatment/Reassessment: Encounter Documentation/Handoff: Medical Decision Making as of 05/13/22 0853 Johnson May 12, 2022 0911 26 yom, history of CF with CF related complications, presents with 2 days of abd pain and emesis. Unable to keep anything down. Heart feels like it is racing. No fevers. Has not had a BM in 2 days. Exam: alert and oriented. Laying comfortably in bed. Dizzy upon standing. MMM, cap refill 3-4 sec. Tachycardic, regular rhythm. CTAB. Abd tender epigastric and periumbilical. Plan: IV, IVF, serum labs, RFA, EKG, Zofran, EKG [ES] 0950 ABD IMPRESSION: There are cystic fibrosis changes in the visualized lung bases. Surgical clipsare seen in the left upper quadrant. There is a glucose monitor. There is a nonspecific bowel gas pattern. No bowel obstruction is seen. There is some stool in the colon. The fecal load is decreased from the last exam. No organomegaly or abnormal calcifications are identified. The bones are stable in appearance. [ES] 1025 WBC(!): 20.8 [DV] 1047 Lipase(!): Lipase 9(!) [DV] 1048 Comprehensive metabolic panel(!!): Sodium 131(!) Potassium 8.3(!!) Chloride 88(!) Carbon Dioxide 14.2(!) BUN 45(!) Glucose 324(!) Total Bilirubin 1.0 AST 77(!) ALT 38 Alkaline Phosphatase 889(!) Calcium 8.1 Protein, Total 8.3 Albumin 3.0(!) Creatinine 1.78(!) [DV] 1101 WB Potassium drawn. Vitals with improvement to tachycardia following NS bolus. HR 100. [DV] 1109 Potassium,WB(!!): Potassium, WB 6.0(!!) [DV] [address] Cisneros, [facility], who accepted patient for admission for IVF, tachycardia, emesis. Dr. Cisneros will call back as he needs to discuss with team regarding transfer/admission. Patient updated and aware of plan. [ES] 1316 keenan Meyer for transfer to [place]. [facility] and working on obtaining ALS at this time. [ES] 1324 RFA neg [ES] 1345 Pt with ongoing emesis, Reglan ordered. [ES] 1504 Home insulin ordered for BGT of 427. [ES] 1535 VSS. Patient transferred to [place] [facility]. [DV] Medical Decision Making User Index [DV] Karlene Chacon DO [ES] Sabina Larios MD Final Clinical Impression/Diagnosis as of 05/13/22 0853 Intractable nausea and vomiting Cystic fibrosis Karlene Chacon DO PGY-1 Pediatric Resident 05/12/2022 3:38 PM I have seen and evaluated the patient. I have obtained the olson portions of the history and physicalexamination. I have discussed the patient with the resident. I have reviewed the resident's documentation and agree with it. The medical decision making was done together with the resident and is as documented in the resident's note. Sabina Larios MD Pediatric Emergency Medicine, PGY4 [facility]06-12-2022 Emergency department Triage note* Be Zaidi RN - 05/12/2022 8:44 AM EDT Patient came to the ED for vomiting since Friday night and elevated HR since last night. Patient c/o worsening abdomen pain. Patient voided 1 time today. Patient took 2 CoVid tests, negative. Pt alert and ambulatory, skin pink warm and dry, lungs clear and resp easy. [facility]04-20-2022 History of Present illness Narrative* Miguelina Murray RN - 03/20/2022 11:01 AM EDTSummary: New CF patient referral Images from the original note were not included. Referral from: [facility] Dr. Jean Pierre Kilgore Patient from: [place], [place] Reason for consult: Cystic Fibrosis Transition of Care Genotype: Delta [id number] Complications of CF: ---ADVANCED stage lung disease; Patient not currently interested in Lung or Liver Transplant. ---Pancreatic insufficiency ---CFRD ---Allergic rhinitis ---Biliary cirrhosis ---GERD ---Hypersplenism syndrome ---Moderate, persistent Asthma ---Osteopenia ---Portal hypertension ---Esophageal varices ---Hyponatremia ---Acute respiratory failure with hypoxia ---Allergic bronchopulmonary aspergillosis ---Hyperkalemia ---Burkholderia cepacia infection ---Hemoptysis Potential Consults: -Endocrine -GI (Liver) -Transplant (Lung and Liver) -ID Chronic maintenance regimen: CFTR modulators: YES; Started 11/05/2019 with more frequent LFT monitoring. Daily dosing 12/31/2019, then 1 pill alternating with 2 pills every morning. Pulmozyme: YES, daily. Hypertonic saline: NO Chronic Azithromycin (anti-inflammatory): NO; on hold for NTM. Inhaled Abx: YES; alternates MUKESH with [place] Ibuprofen: NO Enzymes: Creon; 3 caps before meals and 2 caps with snacks. VEST: YES; uses percussor in hospital. Would like to trial IPV at home. Supplemental oxygen use: NO CURRENT MEDICATIONS: Eynlbztl-Yjghfar-Emewne&Ivacaf (TRIKAFTA) 100-50-75 & 150 MG oral tablet therapy pack Am dose only 84 Tablet 11 MVW COMPLETE FORMULATION (MVW COMPLETE FORMULATION) CAPS Take 2 Capsules by mouth daily 60 Capsule 11 amLODIPine (NORVASC) 2.5 MG tablet Take 4 Tablets (10 mg) by mouth daily 360 Tablet 3 ALBUTEROL 108 (90 Base) MCG/ACT inhaler inhale 2 puffs by mouth four times a day 54 g 1 phytonadione (MEPHYTON) 5 MG TABS tablet Take 1 Tab by mouth. Take 5mg on Friday, Friday and Friday 45 Tablet 3 ursodiol (ACTIGALL) 300 MG capsule Take 1 Capsule (300 mg) by mouth 2 times daily Indications: Liver Disease 180 Capsule 3 vitamin D (ERGOCALCIFEROL) 1.25 MG (31001 UT) capsule Take 1 Capsule (50,000 Units) by mouth every 7 days Indications: Osteoporosis 4 Capsule 11 tobramycin (MUKESH) 300 MG/5ML nebulizer solution Use 5 mL (300 mg) by nebulization every 12 hours Use every other month. 56 Ampule 6 dornase alpha (PULMOZYME) 1 MG/ML nebulizer solution Use 2.5 mL (2.5 mg) by nebulization daily 225 mL 3 Respiratory Therapy Supplies (BOB ALTERA NEBULIZER HANDSET) MISC 1 Each by Does not apply route 3 times daily To be used to nebulize cayston 1 Each 5 fluticasone-salmeterol (ADVAIR) 500-50 MCG/DOSE diskus inhaler Inhale 1 Puff into the lungs 2 timesdaily Rinse mouth after each use. 1 Inhaler 11 insulin detemir (LEVEMIR) 100 UNIT/ML SOLN injection Inject 13 Units into the skin nightly at bedtime bedtime Indications: CFRD (Patient taking differently: Inject 8 Units into the skin nightly at bedtime bedtime Indications: CFRD) 3 Vial 3 cetirizine (ZYRTEC) 10 MG tablet Take 1 Tab (10 mg) by mouth daily as needed for Allergies 30 Tab 11 Spacer/Aero-Holding Chambers (OPTICHAMBER DINO) JEAN-PAUL DEVICE by Other route Use as directed with metered-dose inhaler. 1 Each 0 Misc. Devices (ACAPELLA) MISC by Does not apply route HANDICAP PLACARD Permanent Placard, for the purpose of a disability. 1 Each 0 NONFORMULARY Novolog Meals: 1 units of Rapid Acting Insulin for 10 grams of Carbohydrate Snacks: 1 unit of Rapid Acting Insulin for 15 grams of Carbohydrate Correction Factor: BS > 150 add 1 unit BS > 190 add 2 units BS > 230 add 3 units BS > 270 add 4 units BS > 310 add 5 units 1 Each 0 Glucagon, rDNA, (GLUCAGON EMERGENCY IJ) Inject 1 mg into the muscle Use as instructed. CREON 26562 units capsule Take 3 Caps (108,000 Units) by mouth Before Meals and 2 Snacks 450 Cap 11 GENERAL CLINIC INFORMATION---> Exacerbations in the last 12 months: Dates: 01/14/2022 Prednisone taper, 40mg x 7 days, 20mg x 7 days, then stop. Dates: 12/06/2021-12/20/2021 Abx: PO Bactrim, BID Dates: 11/26/2021-12/10/2021 Abx: PO Minocycline and Levaquin, for hemoptysis. FEV1: PFT---> 2016 07/01/2016 158.0 2.87 1.34 47 68.9 37.4 Best 201609/17/2017 157.0 3.13 1.37 44 76.1 38.9 Best 2018 03/18/2018 157.0 2.55 1.08 42 62.1 30.7 201803/29/2019 157.0 2.49 1.10 44 60.8 31.3 06/15/2019 157.0 1.81 0.72 40 44.4 20.6 201901/03/2020 157.0 2.56 1.00 39 62.7 28.7 09/18/2020 156.0 43.3 2.66 1.06 40 66.2 31.1 202004/09/2021 156.0 41.5 2.80 1.06 38 70.0 31.1 07/09/2021 156.0 39.6 2.75 1.09 39 68.8 31.9 10/08/2021 157.0 39.2 2.71 1.03 38 66.8 30.1 202112/06/2021 157.0 38.6 2.52 1.01 40 62.1 29 Respiratory Cultures: 10/08/2021: B. Cepacia complex:SSP B. vietnamensis SENSITIVITIES: Ceftazidime 4.0 Sensitive Levofloxacin 4.0 Intermediate Meropenem 1.0 Sensitive Minocycline 2.0 Sensitive Timentin >64.0 Resistant Trimethoprim/Sulfa 2.0/38 Sensitive *Previously with MRSA, B. Cepacia, and A. Xylosoxidans. Vaccinations (influenza, Pneumovax, Prevnar): Previous Bronchoscopy: ---No known previous bronchoscopy results noted. CT CHEST: NO IMAGES RECEIVED. CHEST XRAY: NO IMAGES RECEIVED. DEXA SCAN: NUTRITION: BMI: Low 16.94 BMI trend: Consistently below average Last OGTT: N/A Dexa: Low bone mineral density (01/25/2019) HGA1C: High 7.5 (12/24/2021) Vit D: Low 10 (12/06/2021) Vit E: 10.6 (12/06/2021) Vit A: Low 15.5 (12/06/2021) ANNUAL SCREENING---> OGTT in calendary year No, CFRD AFB culture in calendar year Yes DEXA Needed, Done 01/25/2019 CXR/CT Chest Done, CXR 01/14/2022; CT needed. Colonoscopy (age > 35) N/A (age) Audiology No Ophtho Exam No Tamiflu Rx Will order in 2021. Tentative Plan: ---Spirometry baseline (scheduled) ---Obtain imaging on disk ---Sputum cultures for bacteria, fungus, AFB, and nocardia ---Blood work (done in December,) ---RT Education, SW, and RD - Annual visits will be done at next visit. ---Recommend Dexa scan ---Follow up/discuss Transplant Miguelina Murray RN [employer] CF and Bronchiectasis Programs A110 [facility] Miscellaneous Notes* Telephone Encounter - Nell Lozano - 03/05/2022 1:09 PM EDT I have called patient and he did not answer. I left a voicemail requesting that he give me a call back at his earliest convenience. * Telephone Encounter - Nell Lozano - 03/05/2022 7:54 AM EDT Referring physician: Dr. Jean Pierre Kilgore Address: [facility] Phone: Fax: Diagnosis: Cystic Fibrosis Are there epic records: Yes Are there care everywhere records: Yes Has a referral form been faxed: No Has patient been added to spreadsheet: Yes [facility] No data available for this section [facility] Evaluation note* Diagnosis Cystic fibrosis with pulmonary manifestations (HCC)- Primary Cystic fibrosis with pulmonary manifestations documented in this encounter [facility] note* Diagnosis Intractable nausea and vomiting- Primary Persistent vomiting Cystic fibrosis - use contact precautions Cystic fibrosis without mention of meconium ileus 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 Secondary diabetes mellitus without mention of complication, not stated as uncontrolled, or unspecified RITA (acute kidney injury) Acute kidney failure, unspecified Advanced Lung Disease Burkholderia cepacia infection Infection due to other gram-negative organisms in conditions classified elsewhere and of unspecified site Allergic bronchopulmonary aspergillosis Acute respiratory failure with hypoxia Acute respiratory failure Esophageal 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 Esophageal varices without mention of bleeding Portal hypertension Moderate persistent asthma without complication Unspecified asthma Hypersplenism syndrome Hypersplenism Gastroesophageal reflux disease without esophagitis Esophageal reflux Biliary cirrhosis Short stature Seasonal allergic rhinitis, unspecified trigger Pancreatic insufficiency due to cystic fibrosis documented in this encounter [facility] note* Diagnosis 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)- Primary Vitamin D deficiency Unspecified vitamin D deficiency documented in this encounter [facility] note* Diagnosis Cystic fibrosis with pulmonary manifestations (HCC)- Primary Cystic fibrosis with pulmonary manifestations 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) 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) Secondary diabetes mellitus without mention of complication, not stated as uncontrolled, or unspecified Cystic fibrosis with liver disease (HCC) Cystic fibrosis without mention of meconium ileus Chronic pansinusitis Other chronic sinusitis Low weight Underweight Encounter for screening for osteoporosis Special screening for osteoporosis [facility] Cystic fibrosis with pulmonary manifestations (HCC)- Primary Cystic fibrosis with pulmonary manifestations [facility] Diagnosis Cystic fibrosis with pulmonary manifestations (HCC)- Primary Cystic fibrosis with pulmonary manifestations Hemoptysis Hemoptysis, unspecified Pseudomonas aeruginosa infection Pseudomonas infection in conditions classified elsewhere and of unspecified site Burkholderia cepacia infection Infection due to other gram-negative organisms in conditions classified elsewhere and of unspecified site [facility]* Diagnosis Cystic fibrosis with pulmonary manifestations (HCC) Cystic fibrosis with pulmonary manifestations [facility] [place] [facility]* Diagnosis Cystic fibrosis (HCC) Cystic fibrosis without mention of meconium ileus [facility]* Diagnosis Cystic fibrosis (HCC)- Primary Cystic fibrosis without mention of meconium ileus Pseudomonas aeruginosa infection Pseudomonas infection in conditions classified elsewhere and of unspecified site Burkholderia cepacia infection Infection due to other gram-negative organisms in conditions classified elsewhere and of unspecified site MRSA (methicillin resistant Staphylococcus aureus) infection Methicillin resistant Staphylococcus aureus in conditions classified elsewhere and of unspecified site 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) 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) Secondary diabetes mellitus without mention of complication, not stated as uncontrolled, or unspecified [facility] Diagnosis Cystic fibrosis with pulmonary manifestations (HCC)- Primary Cystic fibrosis with pulmonary manifestations [facility]* Diagnosis Type 1 diabetes mellitus with hyperglycemia (HCC)- Primary 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 mention of complication, not stated as uncontrolled CF (cystic fibrosis) (HCC)- Primary Cystic fibrosis without mention of meconium ileus [facility]* Diagnosis Cystic fibrosis with pulmonary manifestations (HCC) Cystic fibrosis with pulmonary manifestations 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) 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) Secondary diabetes mellitus without mention of complication, not stated as uncontrolled, or unspecified Cystic fibrosis with liver disease (HCC) Cystic fibrosis without mention of meconium ileus [facility] Diagnosis CF (cystic fibrosis) (HCC)- Primary Cystic fibrosis without mention of meconium ileus 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) Chronic pansinusitis Other chronic sinusitis Pseudomonas aeruginosa infection Pseudomonas infection in conditions classified elsewhere and of unspecified site Burkholderia cepacia infection Infection due to other gram-negative organisms in conditions classified elsewhere and of unspecified site Hemoptysis Hemoptysis, unspecified 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) Secondary diabetes mellitus without mention of complication, not stated as uncontrolled, or unspecified Cystic fibrosis with pulmonary manifestations (HCC) Cystic fibrosis with pulmonary manifestations Severe protein-calorie malnutrition (HCC) Other severe protein-calorie malnutrition [facility]* Diagnosis Cystic fibrosis (HCC) Cystic fibrosis without mention of meconium ileus [facility]* Diagnosis Cystic fibrosis (HCC)- Primary Cystic fibrosis without mention of meconium ileus [facility]* Diagnosis Cystic fibrosis with pulmonary manifestations (HCC)- Primary Cystic fibrosis with pulmonary manifestations [facility]* Diagnosis Cystic fibrosis (HCC) Cystic fibrosis without mention of meconium ileus [facility]* Diagnosis Cystic fibrosis with pulmonary exacerbation (HCC)- Primary Cystic fibrosis with pulmonary manifestations Cystic fibrosis with pulmonary manifestations (HCC) Cystic fibrosis with pulmonary manifestations 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) Secondary diabetes mellitus without mention of complication, not stated as uncontrolled, or unspecified Cystic fibrosis with liver disease (HCC) Cystic fibrosis without mention of meconium ileus Severe protein-calorie malnutrition (HCC) Other severe protein-calorie malnutrition 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) Low weight Underweight [facility]* Diagnosis Infection- Primary Unspecified infectious and parasitic diseases [facility]* Diagnosis Cystic fibrosis with pulmonary manifestations (HCC)- Primary Cystic fibrosis with pulmonary manifestations Pseudomonas aeruginosa infection Pseudomonas infection in conditions classified elsewhere and of unspecified site Burkholderia cepacia infection Infection due to other gram-negative organisms in conditions classified elsewhere and of unspecified site MRSA (methicillin resistant Staphylococcus aureus) infection Methicillin resistant Staphylococcus aureus in conditions classified elsewhere and of unspecified site [facility]* Diagnosis Cystic fibrosis with pulmonary manifestations (HCC)- Primary Cystic fibrosis with pulmonary manifestations [facility]* Diagnosis Cystic fibrosis with pulmonary manifestations (HCC)- Primary Cystic fibrosis with pulmonary manifestations [facility]* Diagnosis CF (cystic fibrosis) (HCC) Cystic fibrosis without mention of meconium ileus [facility]* Diagnosis Need for prophylactic vaccination and inoculation against influenza- Primary Cystic fibrosis with pulmonary exacerbation (HCC) Cystic fibrosis with pulmonary manifestations Burkholderia cepacia infection Infection due to other gram-negative organisms in conditions classified elsewhere and of unspecified site Transaminitis Nonspecific elevation of levels of transaminase or lactic acid dehydrogenase (LDH) Cystic fibrosis with liver disease (HCC) Cystic fibrosis without mention of meconium ileus 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) Secondary diabetes mellitus without mention of complication, not stated as uncontrolled, or unspecified MRSA (methicillin resistant Staphylococcus aureus) infection Methicillin resistant Staphylococcus aureus in conditions classified elsewhere and of unspecified site [facility]* Diagnosis Cystic fibrosis with pulmonary exacerbation (HCC)- Primary Cystic fibrosis with pulmonary manifestations [facility]* Diagnosis Type 1 diabetes mellitus with hyperglycemia (HCC)- Primary 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 mention of complication, not stated as uncontrolled [facility]* Diagnosis Cystic fibrosis with pulmonary manifestations (HCC)- Primary Cystic fibrosis with pulmonary manifestations [facility]* Diagnosis Type 1 diabetes mellitus with hyperglycemia (HCC)- Primary 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 mention of complication, not stated as uncontrolled [facility]* Diagnosis Cystic fibrosis with pulmonary manifestations (HCC)- Primary Cystic fibrosis with pulmonary manifestations [facility]* Diagnosis Cystic fibrosis with pulmonary manifestations (HCC) Cystic fibrosis with pulmonary manifestations [facility]* Diagnosis Cystic fibrosis with pulmonary manifestations (HCC)- Primary Cystic fibrosis with pulmonary manifestations [facility]* Diagnosis Cystic fibrosis (HCC)- Primary Cystic fibrosis without mention of meconium ileus [facility]* Diagnosis Cystic fibrosis with pulmonary exacerbation (HCC)- Primary Cystic fibrosis with pulmonary manifestations [facility] [place] [facility]* Diagnosis Cystic fibrosis (HCC)- Primary Cystic fibrosis without mention of meconium ileus 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) 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) Secondary diabetes mellitus without mention of complication, not stated as uncontrolled, or unspecified Dietary counseling and surveillance Dietary surveillance and counseling [facility] [place] [facility]* Diagnosis Cystic fibrosis with pulmonary exacerbation (HCC)- Primary Cystic fibrosis with pulmonary manifestations Cystic fibrosis (HCC) Cystic fibrosis without mention of meconium ileus Chronic sinusitis, unspecified location 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) Secondary diabetes mellitus without mention of complication, not stated as uncontrolled, or unspecified Essential hypertension Unspecified essential hypertension Chronic pansinusitis Other chronic sinusitis 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) Cystic fibrosis without mention of meconium ileus Severe protein-calorie malnutrition (HCC) Other severe protein-calorie malnutrition 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) Low weight Underweight [facility] [place] [facility] Diagnosis Cystic fibrosis with pulmonary exacerbation (HCC)- Primary Cystic fibrosis with pulmonary manifestations Cystic fibrosis with pulmonary manifestations (HCC) Cystic fibrosis with pulmonary manifestations [facility] [place] [facility] Diagnosis Cystic fibrosis with pulmonary exacerbation (HCC)- Primary Cystic fibrosis with pulmonary manifestations [facility] [place] [facility]* Diagnosis Type 1 diabetes mellitus with hyperglycemia (HCC)- Primary 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 mention of complication, not stated as uncontrolled [facility] [place] [facility]* Diagnosis Cystic fibrosis (HCC) [E84.9 (ICD-10-CM)]- Primary Cystic fibrosis without mention of meconium ileus [facility] [place] [facility]* Diagnosis Cystic fibrosis (HCC)- Primary Cystic fibrosis without mention of meconium ileus 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) [facility] [place] [facility]* Diagnosis Cystic fibrosis (HCC)- Primary Cystic fibrosis without mention of meconium ileus [facility] Diagnosis Cystic fibrosis (HCC) Cystic fibrosis without mention of meconium ileus [facility] [place] [facility] Diagnosis Cystic fibrosis with pulmonary manifestations (HCC)- Primary Cystic fibrosis with pulmonary manifestations [facility] Diagnosis Cystic fibrosis with pulmonary manifestations (HCC)- Primary Cystic fibrosis with pulmonary manifestations Cystic fibrosis with pulmonary exacerbation (HCC) Cystic fibrosis with pulmonary manifestations [facility] Diagnosis Cystic fibrosis (HCC)- Primary Cystic fibrosis without mention of meconium ileus Burkholderia cepacia infection Infection due to other gram-negative organisms in conditions classified elsewhere and of unspecified site MRSA (methicillin resistant Staphylococcus aureus) infection Methicillin resistant Staphylococcus aureus in conditions classified elsewhere and of unspecified site Pseudomonas aeruginosa infection Pseudomonas infection in conditions classified elsewhere and of unspecified site Chronic sinusitis, unspecified location 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) Secondary diabetes mellitus without mention of complication, not stated as uncontrolled, or unspecified 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) [facility] Diagnosis Cystic fibrosis (HCC)- Primary Cystic fibrosis without mention of meconium ileus [facility] Diagnosis Cystic fibrosis (HCC)- Primary Cystic fibrosis without mention of meconium ileus [facility] Diagnosis Cystic fibrosis (HCC)- Primary Cystic fibrosis without mention of meconium ileus [facility] Diagnosis Osteoporosis without current pathological fracture, unspecified osteoporosis type- Primary [facility]* Diagnosis Type 1 diabetes mellitus with hyperglycemia (HCC)- Primary 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 mention of complication, not stated as uncontrolled [facility] Diagnosis Cystic fibrosis with pulmonary manifestations (HCC)- Primary Cystic fibrosis with pulmonary manifestations [facility] Diagnosis Anemia due to multiple mechanisms- Primary Anemia, unspecified Other specified intestinal malabsorption [facility] Diagnosis Cystic fibrosis (HCC)- Primary Cystic fibrosis without mention of meconium ileus [facility] Diagnosis Cystic fibrosis with pulmonary manifestations (HCC)- Primary Cystic fibrosis with pulmonary manifestations 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) Secondary diabetes mellitus without mention of complication, not stated as uncontrolled, or unspecified Pseudomonas aeruginosa infection Pseudomonas infection in conditions classified elsewhere and of unspecified site Burkholderia cepacia infection Infection due to other gram-negative organisms in conditions classified elsewhere and of unspecified site 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) Vitamin D deficiency Unspecified vitamin D deficiency Elevated liver enzymes level due to cystic fibrosis (HCC) Cystic fibrosis with liver disease (HCC) Cystic fibrosis without mention of meconium ileus Chronic pansinusitis Other chronic sinusitis Severe protein-calorie malnutrition (HCC) Other severe protein-calorie malnutrition [facility] Diagnosis Osteoporosis without current pathological fracture, unspecified osteoporosis type [facility] [place] [facility] Diagnosis Osteoporosis, unspecified osteoporosis type, unspecified pathological fracture presence- Primary Cystic fibrosis (HCC) Cystic fibrosis without mention of meconium ileus [facility] Diagnosis Cystic fibrosis with pulmonary manifestations (HCC)- Primary Cystic fibrosis with pulmonary manifestations [facility] Diagnosis Cystic fibrosis (HCC) Cystic fibrosis without mention of meconium ileus 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) [facility] Diagnosis Cystic fibrosis (HCC)- Primary Cystic fibrosis without mention of meconium ileus [facility]* Diagnosis Type 1 diabetes mellitus with hyperglycemia (HCC) 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 mention of complication, not stated as uncontrolled [facility] Diagnosis Cystic fibrosis (HCC)- Primary Cystic fibrosis without mention of meconium ileus 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) 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) Secondary diabetes mellitus without mention of complication, not stated as uncontrolled, or unspecified Dietary counseling and surveillance Dietary surveillance and counseling Vitamin D deficiency Unspecified vitamin D deficiency [facility] Diagnosis Dyspnea, unspecified type- Primary [facility]* Diagnosis 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)- Primary [facility]* Diagnosis Cystic fibrosis (HCC)- Primary Cystic fibrosis without mention of meconium ileus [facility]* Diagnosis Cystic fibrosis (HCC)- Primary Cystic fibrosis without mention of meconium ileus [facility]* Diagnosis Infection- Primary Unspecified infectious and parasitic diseases [facility] [place] [facility]* Diagnosis Cystic fibrosis exacerbation (HCC)- Primary Cystic fibrosis without mention of meconium ileus Cystic fibrosis with pulmonary exacerbation (HCC) Cystic fibrosis with pulmonary manifestations [facility] Diagnosis Cystic fibrosis (HCC)- Primary Cystic fibrosis without mention of meconium ileus 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) Secondary diabetes mellitus without mention of complication, not stated as uncontrolled, or unspecified Cystic fibrosis with pulmonary manifestations (HCC) Cystic fibrosis with pulmonary manifestations Vitamin D deficiency Unspecified vitamin D deficiency [facility]* Diagnosis Type 1 diabetes mellitus with hyperglycemia (HCC) 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 mention of complication, not stated as uncontrolled [facility]* Diagnosis Cystic fibrosis with pulmonary exacerbation (HCC)- Primary Cystic fibrosis with pulmonary manifestations [facility]* Diagnosis Cystic fibrosis (HCC)- Primary Cystic fibrosis without mention of meconium ileus [facility]* Diagnosis Type 1 diabetes mellitus with hyperglycemia (HCC)- Primary 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 mention of complication, not stated as uncontrolled [facility]* Diagnosis 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)- Primary Cystic fibrosis with other manifestations [facility]* Diagnosis Elevated alkaline phosphatase level- Primary Other nonspecific abnormal serum enzyme levels [facility]* Diagnosis 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)- Primary Secondary diabetes mellitus without mention of complication, not stated as uncontrolled, or unspecified Cystic fibrosis with pulmonary manifestations (HCC) Cystic fibrosis with pulmonary manifestations 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) Pseudomonas aeruginosa infection Pseudomonas infection in conditions classified elsewhere and of unspecified site 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) Cystic fibrosis with other manifestations Acute kidney injury due to nephrotoxicity (HCC) (HCC) [facility]* Diagnosis Cystic fibrosis with pulmonary manifestations (HCC)- Primary Cystic fibrosis with pulmonary manifestations [facility]* Diagnosis Cystic fibrosis (HCC)- Primary Cystic fibrosis without mention of meconium ileus [facility]* Diagnosis Cystic fibrosis with pulmonary manifestations (HCC)- Primary Cystic fibrosis with pulmonary manifestations [facility]* Diagnosis Cystic fibrosis (HCC)- Primary Cystic fibrosis without mention of meconium ileus [facility]* Diagnosis Abnormal results of liver function studies Nonspecific abnormal results of liver function study [facility]* Diagnosis Cystic fibrosis with pulmonary manifestations (HCC)- Primary Cystic fibrosis with pulmonary manifestations 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) Cystic fibrosis without mention of meconium ileus [facility]* Diagnosis Type 1 diabetes mellitus with hyperglycemia (HCC)- Primary 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 mention of complication, not stated as uncontrolled [facility]* Diagnosis Other cirrhosis of liver (HCC)- Primary [facility]* Diagnosis Cystic fibrosis with pulmonary manifestations (HCC) Cystic fibrosis with pulmonary manifestations Pseudomonas aeruginosa infection Pseudomonas infection in conditions classified elsewhere and of unspecified site Burkholderia cepacia infection Infection due to other gram-negative organisms in conditions classified elsewhere and of unspecified site [facility]* Diagnosis Cystic fibrosis with pulmonary manifestations (HCC)- Primary Cystic fibrosis with pulmonary manifestations [facility] Diagnosis Cystic fibrosis with pulmonary exacerbation (HCC)- Primary Cystic fibrosis with pulmonary manifestations [facility]* Diagnosis Cystic fibrosis with pulmonary exacerbation (HCC) Cystic fibrosis with pulmonary manifestations 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 Infection due to other gram-negative organisms in conditions classified elsewhere and of unspecified site [facility]* Diagnosis Cystic fibrosis with pulmonary exacerbation (HCC) Cystic fibrosis with pulmonary manifestations 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 Infection due to other gram-negative organisms in conditions classified elsewhere and of unspecified site [facility]* Diagnosis Cystic fibrosis with pulmonary exacerbation (HCC)- Primary Cystic fibrosis with pulmonary manifestations 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 Infection due to other gram-negative organisms in conditions classified elsewhere and of unspecified site Cystic fibrosis with pulmonary exacerbation (HCC) Cystic fibrosis with pulmonary manifestations 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 Infection due to other gram-negative organisms in conditions classified elsewhere and of unspecified site [facility]* Diagnosis Hyperkalemia- Primary Hyperpotassemia Cystic fibrosis (HCC) Cystic fibrosis without mention of meconium ileus documented in this encounter [facility] Discharge instructions No data available for this section [facility] Progress note No data available for this section [facility] Reason for referral (narrative)* Outpatient Procedure (Routine) - Pending Review Specialty Diagnoses / Procedures Referred By Contac t Referred To Contact [facility] Diagnoses Cystic fibrosis with pulmonary manifestations (HCC) Procedures SPIROMETRY BASELINE ONLY SPMTRY W/VC EXPIRATORY CRISTINA W/WO MXML VOL VNTForrest Limon MD [id number] [place] [address] Referral ID Status Reason Start Date Expiration Date Visits Requested Visits Authorized [id number] Pending Review Auto-Generat ed Referral 03/12/2022 04/04/2023 1 1 [facility] for referral (narrative)* Outpatient Procedure (Routine) - Pending Review Specialty Diagnoses / Procedures Referred By Contac t Referred To Contact [facility] [place] Diagnoses CF (cystic fibrosis) ([facility]) Procedures SPIROMETRY BASELINE ONLY SPMTRY W/VC EXPIRATORY CRISTINA W/WO MXML VOL VNTJ She Pete DO [address] [place] [address] [place] [address] Referral ID Status Reason Start Date Expiration Date Visits Requested Visits Authorized [id number] Pending Review Auto-Generat ed Referral 08/28/2022 09/27/2023 1 1 T [facility] for referral (narrative)* Outpatient Procedure (Routine) - Pending Review Specialty Diagnoses / Procedures Referred By Contac t Referred To Contact [facility] [place] Diagnoses Cystic fibrosis (HCC) Procedures SPIROMETRY BASELINE ONLY SPMTRY W/VC EXPIRATORY CRISTINA W/WO MXML VOL VNTJ Sally Schneider, ADALI.ACQUISITION ANALYST [address] [place] [address] [address] Referral ID Status Reason Start Date Expiration Date Visits Requested Visits Authorized [id number] Pending Review Auto-Generat ed Referral 2 12/11/2023 1 1 [facility] for referral (narrative)* Outpatient Procedure (Routine) - Pending Review Specialty Diagnoses / Procedures Referred By Contac t Referred To [facility] Diagnoses Cystic fibrosis with pulmonary manifestations (HCC) Cystic fibrosis with pulmonary exacerbation (HCC) Procedures SPIROMETRY BASELINE ONLY SPMTRY W/VC EXPIRATORY CRISTINA W/WO MXML VOL She Granado DO [address] [place] [address] [address] Referral ID Status Reason Start Date Expiration Date Visits Requested Visits Authorized [id number] Pending Review Auto-Generat ed Referral 2 12/20/2023 1 1 [facility] for referral (narrative)* Outpatient Procedure (Routine) - Authorized Specialty Diagnoses / Procedures Referred By Contac t Referred To [facility] [place] Diagnoses Cystic fibrosis with pulmonary manifestations (HCC) Procedures SPIROMETRY BASELINE ONLY SPMTRY W/VC EXPIRATORY CRISTINA W/WO MXML VOL She Granado DO [address] [place] [address] [address] Referral ID Status Reason Start Date Expiration Date Visits Requested Visits Authorized [id number] Authorized Auto-Generat ed Referral 03/03/2023 04/01/2024 1 1 [facility] for referral (narrative)* Outpatient Procedure (Routine) - Authorized Specialty Diagnoses / Procedures Referred By Contac t Referred To Contact [facility] Diagnoses Cystic fibrosis (HCC) Procedures SPIROMETRY BASELINE ONLY SPMTRY W/VC EXPIRATORY CRISTINA W/WO MXML VOL ADILENETJ Sally Schneider APRN.ACQUISITION ANALYST [address] [place] [address] [facility] [place] [address] [place] [id number] Referral ID Status Reason Start Date Expiration Date Visits Requested Visits Authorized [id number] Authorized Auto-Generat ed Referral 03/10/2023 04/08/2024 1 1 [facility] for referral (narrative)* Diagnostic Procedure Only (Routine) - Pending Review Specialty Diagnoses / Procedures Referred By Corneliusac t Referred To Contact XR IMAGING Diagnoses Cystic fibrosis (HCC) 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) Procedures XR ABDOMEN 1V SUPINE RADIOLOGIC EXAM ABDOMEN 1 VIEW Sally Schneider APRN.ACQUISITION ANALYST [address] [place] [address] Xr Imaging Referral ID Status Reason Start Date Expiration Date Visits Requested Visits Authorized [id number] Pending Review Auto-Generat ed Referral 05/19/2023 06/17/2024 1 1 [facility] for referral (narrative)* Outpatient Procedure (Routine) - Authorized Specialty Diagnoses / Procedures Referred By Contac t Referred To Contact [facility] Diagnoses Cystic fibrosis with pulmonary manifestations (HCC) Procedures SPIROMETRY BASELINE ONLY SPMTRY W/VC EXPIRATORY CRISTINA W/WO MXML VOL Jean Pierre Chase MD [address] [facility] [address] [place] [address] Res[facility] [place] [address] [place], [place] [id number] Referral ID Status Reason Start Date Expiration Date Visits Requested Visits Authorized [id number] Authorized Auto-Generat ed Referral 06/04/2023 07/03/2024 1 1 [facility] for referral (narrative)* Diagnostic Procedure Only (Routine) - Closed Specialty Diagnoses / Procedures Referred By Contac t Referred To Contact XR IMAGING Diagnoses Cystic fibrosis (HCC) Procedures XR ABDOMEN 1V SUPINE RADIOLOGIC EXAM ABDOMEN 1 VIEW Sally Schneider APRN.CNP [address] [place] [address] Xr Imaging Referral ID Status Reason Start Date Expiration Date V isits Requested Visits Authorized [id number] Closed Auto-Generate d Referral 07/02/2023 07/31/2024 1 1 [facility] for referral (narrative)* Diagnostic Procedure Only (Routine) - Pending Review Specialty Diagnoses / Procedures Referred By Contac t Referred To Contact XR IMAGING Diagnoses Osteoporosis without current pathological fracture, unspecified osteoporosis type Procedures DXA-AXIAL SKELETON WITH VFA DXA BONE DENSITY STUDY AXIAL SKELETON She Pete DO [address] [place] [address] Xr Imaging [id number] Referral ID Status Reason Start Date Expiration Date Visits Requested Visits Authorized [id number] Pending Review Auto-Generat ed Referral 08/01/2023 08/30/2024 1 1 [facility] for referral (narrative)* Outpatient Procedure (Routine) - Authorized Specialty Diagnoses / Procedures Referred By Contac t Referred To Contact [facility] Diagnoses Cystic fibrosis with pulmonary manifestations (HCC) Procedures SPIROMETRY BASELINE ONLY SPMTRY W/VC EXPIRATORY CRISTINA W/WO MXML VOL VNTJ She Pete DO [address] [place] [address] [facility] [place] [address] [place] [address] Referral ID Status Reason Start Date Expiration Date Visits Requested Visits Authorized [id number] Authorized Auto-Generat ed Referral 10/23/2024 1 1 * Medication Prior Authorization - Closed Specialty Diagnoses / Procedures Referred By Contac t Referred To Contact Diagnoses 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 fibrosis with pulmonary manifestations (HCC) 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) Vitamin D deficiency Elevated liver enzymes level due to cystic fibrosis (HCC) She Pete DO [address] [place] [address] Referral ID Status Reason Start Date Expiration Date Visits Re quested Visits Authorized [id number] Closed 1 1 [facility] for referral (narrative)* Diagnostic Procedure Only (Routine) - Closed Specialty Diagnoses / Procedures [facility] Diagnoses Cystic fibrosis (HCC) 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) Procedures XR ABDOMEN 1V SUPINE RADIOLOGIC EXAM ABDOMEN 1 VIEW Sally Schneider APRN.CNP [address] [place] [address] Xr Imaging [id number] Referral ID Status Reason Start Date Expiration Date V isits Requested Visits Authorized [id number] Closed Auto-Generate d Referral 05/19/2023 06/17/2024 1 1 [facility] for referral (narrative)* Diagnostic Procedure Only (Routine) - Closed Specialty Diagnoses / Procedures [facility] Diagnoses Cystic fibrosis with pulmonary manifestations (HCC) Procedures SPIROMETRY BASELINE ONLY SPMTRY W/VC EXPIRATORY CRISTINA W/WO MXML VOL VNTJ Jean Pierre Kilgore MD 1 [facility] [address] [place] [address] [facility] [place] [address] [place] [address] Referral ID Status Reason Start Date Expiration Date Visits Re quested Visits Authorized [id number] Closed 05/05/2024 11/30/2024 1 1 [facility] for referral (narrative)* Outpatient Procedure (Routine) - Pending Review Specialty Diagnoses / Procedures Referred By Contac t Referred To Contact [facility] Diagnoses Cystic fibrosis (HCC) Procedures SPIROMETRY BASELINE ONLY SPMTRY W/VC EXPIRATORY CRISTINA W/WO MXML VOL VNTJ Sally Schneider APRN.ACQUISITION ANALYST [address] [place] [address] [facility] [place] [address] [place], [place] [id number] Referral ID Status Reason Start Date Expiration Date Visits Requested Visits Authorized [id number] Pending Review Auto-Generat ed Referral 05/05/2024 06/04/2025 1 1 * Diagnostic Procedure Only (Routine) - Pending Review Specialty Diagnoses / Procedures Referred By Contac t Referred To Contact XR IMAGING Diagnoses Cystic fibrosis (HCC) Procedures DXA-AXIAL SKELETON WITH VFA DXA BONE DENSITY STUDY AXIAL SKELETON Sally Schneider APRN.ACQUISITION ANALYST [address] [place] [address] [place] [id number] Referral ID Status Reason Start Date Expiration Date Visits Requested Visits Authorized [id number] Pending Review Auto-Generat ed Referral 05/05/2024 06/04/2025 1 1 [facility] for referral (narrative)* Outpatient Procedure (Routine) - Authorized Specialty Diagnoses / Procedures Referred By Contac t Referred To Contact [facility] Diagnoses Cystic fibrosis with pulmonary manifestations (HCC) Procedures SPIROMETRY BASELINE ONLY SPMTRY W/VC EXPIRATORY CRISTINA W/WO MXML VOL VNTJ Jean Pierre Kilgore MD 1 [facility] [address] [place] [address] [facility] [place] [address] [place] [id number] Referral ID Status Reason Start Date Expiration Date Visits Requested Visits Authorized [id number] Authorized Auto-Generat ed Referral 05/05/2024 06/04/2025 1 1 * Outpatient Procedure (Routine) - New Request Specialty Diagnoses / Procedures Referred By Contac t Referred To Contact [facility] Diagnoses Cystic fibrosis with pulmonary manifestations (HCC) Procedures SPIROMETRY BASELINE ONLY SPMTRY W/VC EXPIRATORY CRISTINA W/WO MXML VOL VNTJ Jean Pierre Kilgore MD 1 [facility] [address] [place] [address] [facility] [address] [place], [place] [id number] Referral ID Status Reason Start Date Expiration Date Visits Requested Visits Authorized [id number] New Request Auto-Generat ed Referral 05/05/2024 06/04/2025 1 1 [facility] for visit Narrative* Outpatient Procedure (Routine) - Closed Specialty Diagnoses / Procedures Referred By Contac t Referred To Contact [facility] Diagnoses Cystic fibrosis (HCC) Procedures SPIROMETRY BASELINE ONLY SPMTRY W/VC EXPIRATORY CRISTINA W/WO MXML VOL VNTJ She Pete DO [address] [place] [address] [place] [address] Referral ID Status Reason Start Date Expiration Date V isits Requested Visits Authorized [id number] Closed Auto-Generate d Referral 03/19/2023 04/17/2024 1 1 [facility] for visit Narrative* Diagnostic Procedure Only (Routine) - Closed Specialty Diagnoses / Procedures Referred By Contac t Referred To Contact XR IMAGING Diagnoses Osteoporosis without current pathological fracture, unspecified osteoporosis type Procedures DXA-AXIAL SKELETON WITH VFA DXA BONE DENSITY STUDY AXIAL SKELETON She Pete DO [address] [place] [address] [place] [address] Referral ID Status Reason Start Date Expiration Date V isits Requested Visits Authorized [id number] Closed Auto-Generate d Referral 08/01/2023 08/30/2024 1 1 [facility] for visit Narrative* Diagnostic Procedure Only (Routine) - Closed Specialty Diagnoses / Procedures Referred By Jennifer newman Referred To Contact XR IMAGING Diagnoses Cystic fibrosis (HCC) 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) Procedures XR ABDOMEN 1V SUPINE RADIOLOGIC EXAM ABDOMEN 1 VIEW Sally Schneider APRN.ACQUISITION ANALYST [address] [place] [address] Xr Imaging [facility] Referral ID Status Reason Start Date Expiration Date V isits Requested Visits Authorized [id number] Closed Auto-Generate d Referral 05/19/2023 06/17/2024 1 1 [facility] Summary Purpose Family History No Family History Records FoundNo Family History Records FoundNo Family History Records FoundNo Family History Records FoundNo Family History Records FoundNo Family History Records Found Advance Directives Date Activated Date Inactivated Comments 02/05/2024 1:40 PM 02/16/2024 6:26 PM Question Answer Comments DNR Order Discussed With: Patient Date Activated Date Inactivated Comments 07/03/2023 3:32 PM 07/29/2023 10:20 PM Question Answer Comments Full Code Order Discussed With: Patient Date Activated Date Inactivated Comments 03/07/2023 7:24 PM 03/11/2023 7:37 PM Question Answer Comments DNR Order Discussed With: Patient Latest Code Status on File Code Status Date Activated Date Inactivated Comments DNR-CCA 03/07/2023 7:24 PM DNR Order Discussed With: Patient Latest Code Status on File Code Status Date Activated Date Inactivated Comments DNR-CCA 03/07/2023 7:24 PM 03/11/2023 7:37 PM Latest Code Status on File Code Status Date Activated Date Inactivated Comments DNR-CCA 03/07/2023 7:24 PM 03/11/2023 7:37 PM Latest Code Status on File Code Status Date Activated Date Inactivated Comments DNR-CCA 03/07/2023 7:24 PM 03/11/2023 7:37 PM Question Answer Comments DNR Order Discussed With: Patient Latest Code Status on File Code Status Date Activated Date Inactivated Comments DNR-CCA 03/07/2023 7:24 PM 03/11/2023 7:37 PM Question Answer Comments DNR Order Discussed With: Patient Latest Code Status on File Code Status Date Activated Date Inactivated Comments Full Code 07/03/2023 3:32 PM Question Answer Comments Full Code Order Discussed With: Patient Code Status History Code Status Date Activated Date Inactivated Comments DNR-CCA 03/07/2023 7:24 PM 03/11/2023 7:37 PM Question Answer Comments DNR Order Discussed With: Patient Latest Code Status on File Code Status Date Activated Date Inactivated Comments Full Code 07/03/2023 3:32 PM 07/29/2023 10:20 PM Question Answer Comments Full Code Order Discussed With: Patient Latest Code Status on File Code Status Date Activated Date Inactivated Comments Full Code 07/03/2023 3:32 PM 07/29/2023 10:20 PM Question Answer Comments Full Code Order Discussed With: Patient Code Status History Code Status Date Activated Date Inactivated Comments DNR-CCA 03/07/2023 7:24 PM 03/11/2023 7:37 PM Question Answer Comments DNR Order Discussed With: Patient Date Activated Date Inactivated Comments 02/05/2024 1:40 PM Date Activated Date Inactivated Comments 02/05/2024 1:40 PM 02/16/2024 6:26 PM Question Answer Comments DNR Order Discussed With: Patient Date Activated Date Inactivated Comments 07/03/2023 3:32 PM 07/29/2023 10:20 PM Question Answer Comments Full Code Order Discussed With: Patient Date Activated Date Inactivated Comments 03/07/2023 7:24 PM 03/11/2023 7:37 PM Question Answer Comments DNR Order Discussed With: Patient Reason for Referral Specialty Diagnoses / Procedures Referred By Contac t Referred To Contact Diagnoses Hyperkalemia Sally Schneider, ADALI.ACQUISITION ANALYST [address] [place] [id number] Referral ID Status Reason Start Date Expiration Date V isits Requested Visits Authorized [id number] Authorized 08/27/2024 08/26/2025 1 1 Specialty Diagnoses / Procedures Referred By Contac t Referred To Contact Diagnoses 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 Sally Schneider, ADALI.ACQUISITION ANALYST [address] [place] [address] Referral ID Status Reason Start Date Expiration Date Visits Re quested Visits Authorized [id number] Closed 1 1 Referral ID Status Reason Start Date Expiration Date V isits Requested Visits Authorized [id number] Pending Review 08/19/2024 10/18/2024 1 1 Specialty Diagnoses / Procedures Referred By Contac t Referred To Contact MR IMAGING Diagnoses Abnormal results of liver function studies Procedures MRI PANC/MARYAM WO/W IVCON MRI ABDOMEN W/O & W/CONTRAST MATERIAL Mono Lan MD [address] [place] [address] Mr Imaging [place] [address] Referral ID Status Reason Start Date Expiration Date V isits Requested Visits Authorized [id number] Closed Auto-Generate d Referral 04/23/2024 06/22/2024 1 1 Specialty Diagnoses / Procedures Referred By Contac t Referred To Contact Rheumatology Diagnoses Cystic fibrosis (HCC) Procedures CONSULT TO RHEUMATOLOGY METABOLIC BONE OFFICE/OUTPATIENT [facility] 60-74 MINUTES Sally Schneider APRN.CNP [address] [place] [address] Referral ID Status Reason Start Date Expiration Date Visits Requested Visits Authorized [id number] Authorized PCP Requested Referral 3 11/12/2024 1 1 Specialty Diagnoses / Procedures Referred By Contac t Referred To Contact Diagnoses Osteoporosis, unspecified osteoporosis type, unspecified pathological fracture presence Cystic fibrosis (HCC) Procedures CONSULT TO ENDO METABOLIC BONE OFFICE/OUTPATIENT [facility] 60-74 MINUTES She Pete DO [address] [place] [address] Referral ID Status Reason Start Date Expiration Date Visits Requested Visits Authorized [id number] Authorized PCP Requested Referral 3 09/28/2024 1 1 Specialty Diagnoses / Procedures Referred By Contac t Referred To Contact Diagnoses Cystic fibrosis (HCC) Cystic fibrosis with pulmonary exacerbation (HCC) She Pete DO [address] [place] [address] Referral ID Status Reason Start Date Expiration Date Visits Re quested Visits Authorized [id number] Closed 1 1 Specialty Diagnoses / Procedures Referred By Contac t Referred To Contact [facility] Diagnoses Cystic fibrosis (HCC) Procedures SPIROMETRY BASELINE ONLY SPMTRY W/VC EXPIRATORY CRISTINA W/WO MXML VOL VNTJ She Pete, DO [address] [place] [address] [facility] [address] [place] [address] Referral ID Status Reason Start Date Expiration Date Visits Requested Visits Authorized [id number] Authorized Auto-Generat ed Referral 03/19/2023 04/17/2024 1 1 Specialty Diagnoses / Procedures Referred By Contac t Referred To Contact Sally Schneider APRN.ACQUISITION ANALYST [address] [place] [address] Referral ID Status Reason Start Date Expiration Date Visits Re quested Visits Authorized [id number] Closed 1 1 Specialty Diagnoses / Procedures Referred By Jennifer t Referred To Contact Diagnoses Cystic fibrosis with pulmonary manifestations (HCC) Cystic fibrosis with liver disease (HCC) Procedures CONSULT TO HEPATOLOGY OFFICE/OUTPATIENT [facility] MDM 60-74 MINUTES She Pete DO [address] [place] [address] Referral ID Status Reason Start Date Expiration Date Visits Requested Visits Authorized [id number] Authorized PCP Requested Referral 07/21/2022 07/21/2023 1 1 Specialty Diagnoses / Procedures Referred By Jennifer t Referred To Contact XR IMAGING Diagnoses Cystic fibrosis with pulmonary manifestations (HCC) 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) Chronic pansinusitis Low weight Encounter for screening for osteoporosis Procedures DXA-AXIAL SKELETON WITH VFA DXA BONE DENSITY STUDY AXIAL SKELETON She Pete DO [address] [place] [address] Xr Imaging Referral ID Status Reason Start Date Expiration Date Visits Requested Visits Authorized [id number] Pending Review Auto-Generat ed Referral 07/21/2022 08/20/2023 1 1 Specialty Diagnoses / Procedures Referred By Corneliusac t Referred To Contact [facility] Diagnoses Cystic fibrosis with pulmonary manifestations (HCC) 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) Procedures SPIROMETRY BASELINE ONLY SPMTRY W/VC EXPIRATORY CRISTINA W/WO MXML VOL VNTJ She Pete, [address] [place] [address] [facility] [address] [place] [id number] Referral ID Status Reason Start Date Expiration Date Visits Requested Visits Authorized [id number] Pending Review Auto-Generat ed Referral 07/21/2022 08/20/2023 1 1 Specialty Diagnoses / Procedures Referred By Contac t Referred To Contact [facility] [place] Diagnoses Cystic fibrosis with pulmonary manifestations (HCC) 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) Chronic pansinusitis Low weight Encounter for screening for osteoporosis Procedures ECHO ECHO TTHRC R-T 2D W/WOM-MODE COMPL SPEC&COLR D She Pete, [address] [place] [address] [address] Referral ID Status Reason Start Date Expiration Date Visits Requested Visits Authorized [id number] Pending Review Auto-Generat ed Referral 07/21/2022 07/21/2023 1 1 Specialty Diagnoses / Procedures Referred By Contac t Referred To Contact US IMAGING Diagnoses Cystic fibrosis with pulmonary manifestations (HCC) 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) Chronic pansinusitis Low weight Encounter for screening for osteoporosis Procedures US ABD RT UPPER QUADRANT US ABDOMINAL REAL TIME W/IMAGE LIMITED She Pete, [address] [place] [address] Us Imaging Referral ID Status Reason Start Date Expiration Date Visits Requested Visits Authorized [id number] Pending Review Auto-Generat ed Referral 07/21/2022 08/20/2023 1 1 Specialty Diagnoses / Procedures Referred By Contac t Referred To Contact [facility] Diagnoses Cystic fibrosis with liver disease (HCC) Procedures DDI VIBRATION CONTROLLED TRANSIENT ELASTOGRAPHY (VCTE) LIVER ELASTOGRAPHY W/O IMAG W/I&R She Pete DO [address] [place] [address] [facility] [place] [address] Referral ID Status Reason Start Date Expiration Date Visits Requested Visits Authorized [id number] Pending Review Auto-Generat ed Referral 07/21/2022 07/21/2023 1 1 Specialty Diagnoses / Procedures Referred By Contac t Referred To Contact She Pete DO [address] [place] [address] Referral ID Status Reason Start Date Expiration Date Visits Re quested Visits Authorized [id number] Closed 1 1 Health Concerns Infection Onset Date Last Indicated Resolved Time COVID-19 Rule-Out 11/05/2022 11/05/2022 11/05/2022 1:57 PM EST Influenza 11/05/2022 11/05/2022 Infection Onset Date Last Indicated Resolved Time Influenza 11/05/2022 11/05/2022 Infection Onset Date Last Indicated Resolved Time Influenza 11/05/2022 11/05/2022 Infection Onset Date Last Indicated Resolved Time Influenza 11/05/2022 11/05/2022 11/19/2022 8:52 PM EST Infection Onset Date Last Indicated Resolved Time Parainfluenza Virus 03/19/2023 03/19/2023 Infection Onset Date Last Indicated Resolved Time COVID-19 Rule-Out 03/19/2023 03/19/2023 03/19/2023 9:43 PM EDT Respiratory Rule-Out 03/19/2023 03/19/2023 023 9:43 PM EDT Infection Onset Date Last Indicated Resolved Time Parainfluenza Virus 03/19/2023 03/19/2023 04/16/20 23 8:51 PM EDT Infection Onset Date Last Indicated Resolved Time COVID-19 Rule-Out 07/02/2023 07/02/2023 07/02/2023 5:12 PM EDT Respiratory Rule-Out 07/02/2023 07/02/2023 023 5:12 PM EDT Infection Onset Date Last Indicated Resolved Time COVID-19 Rule-Out 07/02/2023 07/02/2023 07/02/2023 5:12 PM EDT Respiratory Rule-Out 07/02/2023 07/02/2023 023 5:12 PM EDT Additional Source Comments (unrecognized sect ion and content) No Status Records FoundNo Status Records FoundNo Status Records FoundNo Status Records FoundNo Status Records FoundNo Status Records Found INFORMATION SOURCE (unrecogn ized section and content) DATE CREATED AUTHOR 10/08/2018 [facility] DATE CREATED AUTHOR AUTHOR'S ORGANIZ ATION 05/15/2022 [facility] DATE CREATED AUTHOR AUTHOR'S ORGANIZ ATION [facility] [place] DATE CREATED AUTHOR AUTHOR'S ORGANIZ ATION 07/16/2023 [facility] DATE CREATED AUTHOR AUTHOR'S ORGANIZ ATION 08/24/2024 [facility] DATE CREATED AUTHOR AUTHOR'S ORGANIZ ATION 08/28/2024 [facility] Source Comments (unrecognize d section and content) In the event this informatio n is protected by the Federal Confidentiality of Alcohol and Drug Abuse Patient Records regulations: The Federal rules restrict any use of the information to criminally investigate or prosecute any alcohol or drug abuse patient.[facility] the event this information is protected by the Federal Confidentiality of Alcohol and Drug Abuse Patient Records regulations: The Federal rules restrict any use of the information to criminally investigate or prosecute any alcohol or drug abuse patient.[facility] HospitalIn the event this information is protected by the Federal Confidentiality of Alcohol and Drug Abuse Patient Records regulations: The Federal rules restrict any use of the information to criminally investigate or prosecute any alcohol or drug abuse patient.[facility] HospitalIn the event this information is protected by the Federal Confidentiality of Alcohol and Drug Abuse Patient Records regulations: The Federal rules restrict any use of the information to criminally investigate or prosecute any alcohol or drug abuse patient.[facility] HospitalIn the event this information is protected by the Federal Confidentiality of Alcohol and Drug Abuse Patient Records regulations: The Federal rules restrict any use of the information to criminally investigate or prosecute any alcohol or drug abuse patient.[facility] HospitalIn the event this information is protected by the Federal Confidentiality of Alcohol and Drug Abuse Patient Records regulations: The Federal rules restrict any use of the information to criminally investigate or prosecute any alcohol or drug abuse patient.[facility] HospitalIn the event this information is protected by the Federal Confidentiality of Alcohol and Drug Abuse Patient Records regulations: The Federal rules restrict any use of the information to criminally investigate or prosecute any alcohol or drug abuse patient.[facility] HospitalIn the event this information is protected by the Federal Confidentiality of Alcohol and Drug Abuse Patient Records regulations: The Federal rules restrict any use of the information to criminally investigate or prosecute any alcohol or drug abuse patient.[facility] HospitalIn the event this information is protected by the Federal Confidentiality of Alcohol and Drug Abuse Patient Records regulations: The Federal rules restrict any use of the information to criminally investigate or prosecute any alcohol or drug abuse patient.[facility] HospitalIn the event this information is protected by the Federal Confidentiality of Alcohol and Drug Abuse Patient Records regulations: The Federal rules restrict any use of the information to criminally investigate or prosecute any alcohol or drug abuse patient.[facility] HospitalIn the event this information is protected by the Federal Confidentiality of Alcohol and Drug Abuse Patient Records regulations: The Federal rules restrict any use of the information to criminally investigate or prosecute any alcohol or drug abuse patient.[facility] HospitalIn the event this information is protected by the Federal Confidentiality of Alcohol and Drug Abuse Patient Records regulations: The Federal rules restrict any use of the information to criminally investigate or prosecute any alcohol or drug abuse patient.[facility] HospitalIn the event this information is protected by the Federal Confidentiality of Alcohol and Drug Abuse Patient Records regulations: The Federal rules restrict any use of the information to criminally investigate or prosecute any alcohol or drug abuse patient.[facility] HospitalIn the event this information is protected by the Federal Confidentiality of Alcohol and Drug Abuse Patient Records regulations: The Federal rules restrict any use of the information to criminally investigate or prosecute any alcohol or drug abuse patient.[facility] HospitalIn the event this information is protected by the Federal Confidentiality of Alcohol and Drug Abuse Patient Records regulations: The Federal rules restrict any use of the information to criminally investigate or prosecute any alcohol or drug abuse patient.[facility] HospitalIn the event this information is protected by the Federal Confidentiality of Alcohol and Drug Abuse Patient Records regulations: The Federal rules restrict any use of the information to criminally investigate or prosecute any alcohol or drug abuse patient.[facility] HospitalIn the event this information is protected by the Federal Confidentiality of Alcohol and Drug Abuse Patient Records regulations: The Federal rules restrict any use of the information to criminally investigate or prosecute any alcohol or drug abuse patient.[facility] HospitalIn the event this information is protected by the Federal Confidentiality of Alcohol and Drug Abuse Patient Records regulations: The Federal rules restrict any use of the information to criminally investigate or prosecute any alcohol or drug abuse patient.[facility] HospitalIn the event this information is protected by the Federal Confidentiality of Alcohol and Drug Abuse Patient Records regulations: The Federal rules restrict any use of the information to criminally investigate or prosecute any alcohol or drug abuse patient.[facility] HospitalIn the event this information is protected by the Federal Confidentiality of Alcohol and Drug Abuse Patient Records regulations: The Federal rules restrict any use of the information to criminally investigate or prosecute any alcohol or drug abuse patient.[facility] HospitalIn the event this information is protected by the Federal Confidentiality of Alcohol and Drug Abuse Patient Records regulations: The Federal rules restrict any use of the information to criminally investigate or prosecute any alcohol or drug abuse patient.[facility] HospitalIn the event this information is protected by the Federal Confidentiality of Alcohol and Drug Abuse Patient Records regulations: The Federal rules restrict any use of the information to criminally investigate or prosecute any alcohol or drug abuse patient.[facility] HospitalIn the event this information is protected by the Federal Confidentiality of Alcohol and Drug Abuse Patient Records regulations: The Federal rules restrict any use of the information to criminally investigate or prosecute any alcohol or drug abuse patient.[facility] HospitalIn the event this information is protected by the Federal Confidentiality of Alcohol and Drug Abuse Patient Records regulations: The Federal rules restrict any use of the information to criminally investigate or prosecute any alcohol or drug abuse patient.[facility] HospitalIn the event this information is protected by the Federal Confidentiality of Alcohol and Drug Abuse Patient Records regulations: The Federal rules restrict any use of the information to criminally investigate or prosecute any alcohol or drug abuse patient.[facility] HospitalIn the event this information is protected by the Federal Confidentiality of Alcohol and Drug Abuse Patient Records regulations: The Federal rules restrict any use of the information to criminally investigate or prosecute any alcohol or drug abuse patient.[facility] HospitalIn the event this information is protected by the Federal Confidentiality of Alcohol and Drug Abuse Patient Records regulations: The Federal rules restrict any use of the information to criminally investigate or prosecute any alcohol or drug abuse patient.[facility] HospitalIn the event this information is protected by the Federal Confidentiality of Alcohol and Drug Abuse Patient Records regulations: The Federal rules restrict any use of the information to criminally investigate or prosecute any alcohol or drug abuse patient.[facility] HospitalIn the event this information is protected by the Federal Confidentiality of Alcohol and Drug Abuse Patient Records regulations: The Federal rules restrict any use of the information to criminally investigate or prosecute any alcohol or drug abuse patient.[facility] HospitalIn the event this information is protected by the Federal Confidentiality of Alcohol and Drug Abuse Patient Records regulations: The Federal rules restrict any use of the information to criminally investigate or prosecute any alcohol or drug abuse patient.[facility] HospitalIn the event this information is protected by the Federal Confidentiality of Alcohol and Drug Abuse Patient Records regulations: The Federal rules restrict any use of the information to criminally investigate or prosecute any alcohol or drug abuse patient.[facility] HospitalIn the event this information is protected by the Federal Confidentiality of Alcohol and Drug Abuse Patient Records regulations: The Federal rules restrict any use of the information to criminally investigate or prosecute any alcohol or drug abuse patient.[facility] HospitalIn the event this information is protected by the Federal Confidentiality of Alcohol and Drug Abuse Patient Records regulations: The Federal rules restrict any use of the information to criminally investigate or prosecute any alcohol or drug abuse patient.[facility] HospitalIn the event this information is protected by the Federal Confidentiality of Alcohol and Drug Abuse Patient Records regulations: The Federal rules restrict any use of the information to criminally investigate or prosecute any alcohol or drug abuse patient.[facility] HospitalIn the event this information is protected by the Federal Confidentiality of Alcohol and Drug Abuse Patient Records regulations: The Federal rules restrict any use of the information to criminally investigate or prosecute any alcohol or drug abuse patient.[facility] HospitalIn the event this information is protected by the Federal Confidentiality of Alcohol and Drug Abuse Patient Records regulations: The Federal rules restrict any use of the information to criminally investigate or prosecute any alcohol or drug abuse patient.[facility] HospitalIn the event this information is protected by the Federal Confidentiality of Alcohol and Drug Abuse Patient Records regulations: The Federal rules restrict any use of the information to criminally investigate or prosecute any alcohol or drug abuse patient.[facility] HospitalIn the event this information is protected by the Federal Confidentiality of Alcohol and Drug Abuse Patient Records regulations: The Federal rules restrict any use of the information to criminally investigate or prosecute any alcohol or drug abuse patient.[facility] HospitalIn the event this information is protected by the Federal Confidentiality of Alcohol and Drug Abuse Patient Records regulations: The Federal rules restrict any use of the information to criminally investigate or prosecute any alcohol or drug abuse patient.[facility] HospitalIn the event this information is protected by the Federal Confidentiality of Alcohol and Drug Abuse Patient Records regulations: The Federal rules restrict any use of the information to criminally investigate or prosecute any alcohol or drug abuse patient.[facility] HospitalIn the event this information is protected by the Federal Confidentiality of Alcohol and Drug Abuse Patient Records regulations: The Federal rules restrict any use of the information to criminally investigate or prosecute any alcohol or drug abuse patient.[facility] HospitalIn the event this information is protected by the Federal Confidentiality of Alcohol and Drug Abuse Patient Records regulations: The Federal rules restrict any use of the information to criminally investigate or prosecute any alcohol or drug abuse patient.[facility] HospitalIn the event this information is protected by the Federal Confidentiality of Alcohol and Drug Abuse Patient Records regulations: The Federal rules restrict any use of the information to criminally investigate or prosecute any alcohol or drug abuse patient.[facility] HospitalIn the event this information is protected by the Federal Confidentiality of Alcohol and Drug Abuse Patient Records regulations: The Federal rules restrict any use of the information to criminally investigate or prosecute any alcohol or drug abuse patient.[facility] HospitalIn the event this information is protected by the Federal Confidentiality of Alcohol and Drug Abuse Patient Records regulations: The Federal rules restrict any use of the information to criminally investigate or prosecute any alcohol or drug abuse patient.[facility] HospitalIn the event this information is protected by the Federal Confidentiality of Alcohol and Drug Abuse Patient Records regulations: The Federal rules restrict any use of the information to criminally investigate or prosecute any alcohol or drug abuse patient.[facility] HospitalIn the event this information is protected by the Federal Confidentiality of Alcohol and Drug Abuse Patient Records regulations: The Federal rules restrict any use of the information to criminally investigate or prosecute any alcohol or drug abuse patient.[facility] HospitalIn the event this information is protected by the Federal Confidentiality of Alcohol and Drug Abuse Patient Records regulations: The Federal rules restrict any use of the information to criminally investigate or prosecute any alcohol or drug abuse patient.[facility] HospitalIn the event this information is protected by the Federal Confidentiality of Alcohol and Drug Abuse Patient Records regulations: The Federal rules restrict any use of the information to criminally investigate or prosecute any alcohol or drug abuse patient.[facility] HospitalIn the event this information is protected by the Federal Confidentiality of Alcohol and Drug Abuse Patient Records regulations: The Federal rules restrict any use of the information to criminally investigate or prosecute any alcohol or drug abuse patient.[facility] HospitalIn the event this information is protected by the Federal Confidentiality of Alcohol and Drug Abuse Patient Records regulations: The Federal rules restrict any use of the information to criminally investigate or prosecute any alcohol or drug abuse patient.[facility] HospitalIn the event this information is protected by the Federal Confidentiality of Alcohol and Drug Abuse Patient Records regulations: The Federal rules restrict any use of the information to criminally investigate or prosecute any alcohol or drug abuse patient.[facility] HospitalIn the event this information is protected by the Federal Confidentiality of Alcohol and Drug Abuse Patient Records regulations: The Federal rules restrict any use of the information to criminally investigate or prosecute any alcohol or drug abuse patient.[facility] HospitalIn the event this information is protected by the Federal Confidentiality of Alcohol and Drug Abuse Patient Records regulations: The Federal rules restrict any use of the information to criminally investigate or prosecute any alcohol or drug abuse patient.[facility] HospitalIn the event this information is protected by the Federal Confidentiality of Alcohol and Drug Abuse Patient Records regulations: The Federal rules restrict any use of the information to criminally investigate or prosecute any alcohol or drug abuse patient.[facility] HospitalIn the event this information is protected by the Federal Confidentiality of Alcohol and Drug Abuse Patient Records regulations: The Federal rules restrict any use of the information to criminally investigate or prosecute any alcohol or drug abuse patient.[facility] HospitalIn the event this information is protected by the Federal Confidentiality of Alcohol and Drug Abuse Patient Records regulations: The Federal rules restrict any use of the information to criminally investigate or prosecute any alcohol or drug abuse patient.[facility] HospitalIn the event this information is protected by the Federal Confidentiality of Alcohol and Drug Abuse Patient Records regulations: The Federal rules restrict any use of the information to criminally investigate or prosecute any alcohol or drug abuse patient.[facility] HospitalIn the event this information is protected by the Federal Confidentiality of Alcohol and Drug Abuse Patient Records regulations: The Federal rules restrict any use of the information to criminally investigate or prosecute any alcohol or drug abuse patient.[facility] HospitalIn the event this information is protected by the Federal Confidentiality of Alcohol and Drug Abuse Patient Records regulations: The Federal rules restrict any use of the information to criminally investigate or prosecute any alcohol or drug abuse patient.[facility] HospitalIn the event this information is protected by the Federal Confidentiality of Alcohol and Drug Abuse Patient Records regulations: The Federal rules restrict any use of the information to criminally investigate or prosecute any alcohol or drug abuse patient.[facility] HospitalIn the event this information is protected by the Federal Confidentiality of Alcohol and Drug Abuse Patient Records regulations: The Federal rules restrict any use of the information to criminally investigate or prosecute any alcohol or drug abuse patient.[facility] HospitalIn the event this information is protected by the Federal Confidentiality of Alcohol and Drug Abuse Patient Records regulations: The Federal rules restrict any use of the information to criminally investigate or prosecute any alcohol or drug abuse patient.[facility] HospitalIn the event this information is protected by the Federal Confidentiality of Alcohol and Drug Abuse Patient Records regulations: The Federal rules restrict any use of the information to criminally investigate or prosecute any alcohol or drug abuse patient.[facility] HospitalIn the event this information is protected by the Federal Confidentiality of Alcohol and Drug Abuse Patient Records regulations: The Federal rules restrict any use of the information to criminally investigate or prosecute any alcohol or drug abuse patient.[facility] HospitalIn the event this information is protected by the Federal Confidentiality of Alcohol and Drug Abuse Patient Records regulations: The Federal rules restrict any use of the information to criminally investigate or prosecute any alcohol or drug abuse patient.[facility] HospitalIn the event this information is protected by the Federal Confidentiality of Alcohol and Drug Abuse Patient Records regulations: The Federal rules restrict any use of the information to criminally investigate or prosecute any alcohol or drug abuse patient.[facility] HospitalIn the event this information is protected by the Federal Confidentiality of Alcohol and Drug Abuse Patient Records regulations: The Federal rules restrict any use of the information to criminally investigate or prosecute any alcohol or drug abuse patient.[facility] HospitalIn the event this information is protected by the Federal Confidentiality of Alcohol and Drug Abuse Patient Records regulations: The Federal rules restrict any use of the information to criminally investigate or prosecute any alcohol or drug abuse patient.[facility] HospitalIn the event this information is protected by the Federal Confidentiality of Alcohol and Drug Abuse Patient Records regulations: The Federal rules restrict any use of the information to criminally investigate or prosecute any alcohol or drug abuse patient.[facility] HospitalIn the event this information is protected by the Federal Confidentiality of Alcohol and Drug Abuse Patient Records regulations: The Federal rules restrict any use of the information to criminally investigate or prosecute any alcohol or drug abuse patient.[facility] HospitalIn the event this information is protected by the Federal Confidentiality of Alcohol and Drug Abuse Patient Records regulations: The Federal rules restrict any use of the information to criminally investigate or prosecute any alcohol or drug abuse patient.[facility] HospitalIn the event this information is protected by the Federal Confidentiality of Alcohol and Drug Abuse Patient Records regulations: The Federal rules restrict any use of the information to criminally investigate or prosecute any alcohol or drug abuse patient.[facility] HospitalIn the event this information is protected by the Federal Confidentiality of Alcohol and Drug Abuse Patient Records regulations: The Federal rules restrict any use of the information to criminally investigate or prosecute any alcohol or drug abuse patient.[facility] HospitalIn the event this information is protected by the Federal Confidentiality of Alcohol and Drug Abuse Patient Records regulations: The Federal rules restrict any use of the information to criminally investigate or prosecute any alcohol or drug abuse patient.[facility] HospitalIn the event this information is protected by the Federal Confidentiality of Alcohol and Drug Abuse Patient Records regulations: The Federal rules restrict any use of the information to criminally investigate or prosecute any alcohol or drug abuse patient.[facility] HospitalIn the event this information is protected by the Federal Confidentiality of Alcohol and Drug Abuse Patient Records regulations: The Federal rules restrict any use of the information to criminally investigate or prosecute any alcohol or drug abuse patient.[facility] HospitalIn the event this information is protected by the Federal Confidentiality of Alcohol and Drug Abuse Patient Records regulations: The Federal rules restrict any use of the information to criminally investigate or prosecute any alcohol or drug abuse patient.[facility] HospitalIn the event this information is protected by the Federal Confidentiality of Alcohol and Drug Abuse Patient Records regulations: The Federal rules restrict any use of the information to criminally investigate or prosecute any alcohol or drug abuse patient.[facility] HospitalIn the event this information is protected by the Federal Confidentiality of Alcohol and Drug Abuse Patient Records regulations: The Federal rules restrict any use of the information to criminally investigate or prosecute any alcohol or drug abuse patient.[facility] HospitalIn the event this information is protected by the Federal Confidentiality of Alcohol and Drug Abuse Patient Records regulations: The Federal rules restrict any use of the information to criminally investigate or prosecute any alcohol or drug abuse patient.[facility] HospitalIn the event this information is protected by the Federal Confidentiality of Alcohol and Drug Abuse Patient Records regulations: The Federal rules restrict any use of the information to criminally investigate or prosecute any alcohol or drug abuse patient.[facility] HospitalIn the event this information is protected by the Federal Confidentiality of Alcohol and Drug Abuse Patient Records regulations: The Federal rules restrict any use of the information to criminally investigate or prosecute any alcohol or drug abuse patient.[facility] HospitalIn the event this information is protected by the Federal Confidentiality of Alcohol and Drug Abuse Patient Records regulations: The Federal rules restrict any use of the information to criminally investigate or prosecute any alcohol or drug abuse patient.[facility] HospitalIn the event this information is protected by the Federal Confidentiality of Alcohol and Drug Abuse Patient Records regulations: The Federal rules restrict any use of the information to criminally investigate or prosecute any alcohol or drug abuse patient.[facility] HospitalIn the event this information is protected by the Federal Confidentiality of Alcohol and Drug Abuse Patient Records regulations: The Federal rules restrict any use of the information to criminally investigate or prosecute any alcohol or drug abuse patient.[facility] HospitalIn the event this information is protected by the Federal Confidentiality of Alcohol and Drug Abuse Patient Records regulations: The Federal rules restrict any use of the information to criminally investigate or prosecute any alcohol or drug abuse patient.[facility] HospitalIn the event this information is protected by the Federal Confidentiality of Alcohol and Drug Abuse Patient Records regulations: The Federal rules restrict any use of the information to criminally investigate or prosecute any alcohol or drug abuse patient.[facility] HospitalIn the event this information is protected by the Federal Confidentiality of Alcohol and Drug Abuse Patient Records regulations: The Federal rules restrict any use of the information to criminally investigate or prosecute any alcohol or drug abuse patient.[facility] HospitalIn the event this information is protected by the Federal Confidentiality of Alcohol and Drug Abuse Patient Records regulations: The Federal rules restrict any use of the information to criminally investigate or prosecute any alcohol or drug abuse patient.[facility] HospitalIn the event this information is protected by the Federal Confidentiality of Alcohol and Drug Abuse Patient Records regulations: The Federal rules restrict any use of the information to criminally investigate or prosecute any alcohol or drug abuse patient.[facility] HospitalIn the event this information is protected by the Federal Confidentiality of Alcohol and Drug Abuse Patient Records regulations: The Federal rules restrict any use of the information to criminally investigate or prosecute any alcohol or drug abuse patient.[facility] HospitalIn the event this information is protected by the Federal Confidentiality of Alcohol and Drug Abuse Patient Records regulations: The Federal rules restrict any use of the information to criminally investigate or prosecute any alcohol or drug abuse patient.[facility] HospitalIn the event this information is protected by the Federal Confidentiality of Alcohol and Drug Abuse Patient Records regulations: The Federal rules restrict any use of the information to criminally investigate or prosecute any alcohol or drug abuse patient.[facility] HospitalIn the event this information is protected by the Federal Confidentiality of Alcohol and Drug Abuse Patient Records regulations: The Federal rules restrict any use of the information to criminally investigate or prosecute any alcohol or drug abuse patient.[facility] HospitalIn the event this information is protected by the Federal Confidentiality of Alcohol and Drug Abuse Patient Records regulations: The Federal rules restrict any use of the information to criminally investigate or prosecute any alcohol or drug abuse patient.[facility] HospitalIn the event this information is protected by the Federal Confidentiality of Alcohol and Drug Abuse Patient Records regulations: The Federal rules restrict any use of the information to criminally investigate or prosecute any alcohol or drug abuse patient.[facility] HospitalIn the event this information is protected by the Federal Confidentiality of Alcohol and Drug Abuse Patient Records regulations: The Federal rules restrict any use of the information to criminally investigate or prosecute any alcohol or drug abuse patient.[facility] HospitalIn the event this information is protected by the Federal Confidentiality of Alcohol and Drug Abuse Patient Records regulations: The Federal rules restrict any use of the information to criminally investigate or prosecute any alcohol or drug abuse patient.[facility] HospitalIn the event this information is protected by the Federal Confidentiality of Alcohol and Drug Abuse Patient Records regulations: The Federal rules restrict any use of the information to criminally investigate or prosecute any alcohol or drug abuse patient.[facility] HospitalIn the event this information is protected by the Federal Confidentiality of Alcohol and Drug Abuse Patient Records regulations: The Federal rules restrict any use of the information to criminally investigate or prosecute any alcohol or drug abuse patient.[facility] HospitalIn the event this information is protected by the Federal Confidentiality of Alcohol and Drug Abuse Patient Records regulations: The Federal rules restrict any use of the information to criminally investigate or prosecute any alcohol or drug abuse patient.[facility] HospitalIn the event this information is protected by the Federal Confidentiality of Alcohol and Drug Abuse Patient Records regulations: The Federal rules restrict any use of the information to criminally investigate or prosecute any alcohol or drug abuse patient.[facility] HospitalIn the event this information is protected by the Federal Confidentiality of Alcohol and Drug Abuse Patient Records regulations: The Federal rules restrict any use of the information to criminally investigate or prosecute any alcohol or drug abuse patient.[facility] HospitalIn the event this information is protected by the Federal Confidentiality of Alcohol and Drug Abuse Patient Records regulations: The Federal rules restrict any use of the information to criminally investigate or prosecute any alcohol or drug abuse patient.[facility] HospitalIn the event this information is protected by the Federal Confidentiality of Alcohol and Drug Abuse Patient Records regulations: The Federal rules restrict any use of the information to criminally investigate or prosecute any alcohol or drug abuse patient.[facility] HospitalIn the event this information is protected by the Federal Confidentiality of Alcohol and Drug Abuse Patient Records regulations: The Federal rules restrict any use of the information to criminally investigate or prosecute any alcohol or drug abuse patient.[facility] HospitalIn the event this information is protected by the Federal Confidentiality of Alcohol and Drug Abuse Patient Records regulations: The Federal rules restrict any use of the information to criminally investigate or prosecute any alcohol or drug abuse patient.[facility] HospitalIn the event this information is protected by the Federal Confidentiality of Alcohol and Drug Abuse Patient Records regulations: The Federal rules restrict any use of the information to criminally investigate or prosecute any alcohol or drug abuse patient.[facility] HospitalIn the event this information is protected by the Federal Confidentiality of Alcohol and Drug Abuse Patient Records regulations: The Federal rules restrict any use of the information to criminally investigate or prosecute any alcohol or drug abuse patient.[facility] HospitalIn the event this information is protected by the Federal Confidentiality of Alcohol and Drug Abuse Patient Records regulations: The Federal rules restrict any use of the information to criminally investigate or prosecute any alcohol or drug abuse patient.[facility] HospitalIn the event this information is protected by the Federal Confidentiality of Alcohol and Drug Abuse Patient Records regulations: The Federal rules restrict any use of the information to criminally investigate or prosecute any alcohol or drug abuse patient.[facility] HospitalIn the event this information is protected by the Federal Confidentiality of Alcohol and Drug Abuse Patient Records regulations: The Federal rules restrict any use of the information to criminally investigate or prosecute any alcohol or drug abuse patient.[facility] HospitalIn the event this information is protected by the Federal Confidentiality of Alcohol and Drug Abuse Patient Records regulations: The Federal rules restrict any use of the information to criminally investigate or prosecute any alcohol or drug abuse patient.[facility] HospitalIn the event this information is protected by the Federal Confidentiality of Alcohol and Drug Abuse Patient Records regulations: The Federal rules restrict any use of the information to criminally investigate or prosecute any alcohol or drug abuse patient.[facility] HospitalIn the event this information is protected by the Federal Confidentiality of Alcohol and Drug Abuse Patient Records regulations: The Federal rules restrict any use of the information to criminally investigate or prosecute any alcohol or drug abuse patient.[facility] HospitalIn the event this information is protected by the Federal Confidentiality of Alcohol and Drug Abuse Patient Records regulations: The Federal rules restrict any use of the information to criminally investigate or prosecute any alcohol or drug abuse patient.[facility] HospitalIn the event this information is protected by the Federal Confidentiality of Alcohol and Drug Abuse Patient Records regulations: The Federal rules restrict any use of the information to criminally investigate or prosecute any alcohol or drug abuse patient.[facility] HospitalIn the event this information is protected by the Federal Confidentiality of Alcohol and Drug Abuse Patient Records regulations: The Federal rules restrict any use of the information to criminally investigate or prosecute any alcohol or drug abuse patient.[facility] HospitalIn the event this information is protected by the Federal Confidentiality of Alcohol and Drug Abuse Patient Records regulations: The Federal rules restrict any use of the information to criminally investigate or prosecute any alcohol or drug abuse patient.[facility] HospitalIn the event this information is protected by the Federal Confidentiality of Alcohol and Drug Abuse Patient Records regulations: The Federal rules restrict any use of the information to criminally investigate or prosecute any alcohol or drug abuse patient.[facility] HospitalIn the event this information is protected by the Federal Confidentiality of Alcohol and Drug Abuse Patient Records regulations: The Federal rules restrict any use of the information to criminally investigate or prosecute any alcohol or drug abuse patient.[facility] HospitalIn the event this information is protected by the Federal Confidentiality of Alcohol and Drug Abuse Patient Records regulations: The Federal rules restrict any use of the information to criminally investigate or prosecute any alcohol or drug abuse patient.[facility] HospitalIn the event this information is protected by the Federal Confidentiality of Alcohol and Drug Abuse Patient Records regulations: The Federal rules restrict any use of the information to criminally investigate or prosecute any alcohol or drug abuse patient.[facility] HospitalIn the event this information is protected by the Federal Confidentiality of Alcohol and Drug Abuse Patient Records regulations: The Federal rules restrict any use of the information to criminally investigate or prosecute any alcohol or drug abuse patient.[facility] HospitalIn the event this information is protected by the Federal Confidentiality of Alcohol and Drug Abuse Patient Records regulations: The Federal rules restrict any use of the information to criminally investigate or prosecute any alcohol or drug abuse patient.[facility] HospitalIn the event this information is protected by the Federal Confidentiality of Alcohol and Drug Abuse Patient Records regulations: The Federal rules restrict any use of the information to criminally investigate or prosecute any alcohol or drug abuse patient.[facility] HospitalIn the event this information is protected by the Federal Confidentiality of Alcohol and Drug Abuse Patient Records regulations: The Federal rules restrict any use of the information to criminally investigate or prosecute any alcohol or drug abuse patient.[facility] HospitalIn the event this information is protected by the Federal Confidentiality of Alcohol and Drug Abuse Patient Records regulations: The Federal rules restrict any use of the information to criminally investigate or prosecute any alcohol or drug abuse patient.[facility] HospitalIn the event this information is protected by the Federal Confidentiality of Alcohol and Drug Abuse Patient Records regulations: The Federal rules restrict any use of the information to criminally investigate or prosecute any alcohol or drug abuse patient.[facility] HospitalIn the event this information is protected by the Federal Confidentiality of Alcohol and Drug Abuse Patient Records regulations: The Federal rules restrict any use of the information to criminally investigate or prosecute any alcohol or drug abuse patient.[facility] HospitalIn the event this information is protected by the Federal Confidentiality of Alcohol and Drug Abuse Patient Records regulations: The Federal rules restrict any use of the information to criminally investigate or prosecute any alcohol or drug abuse patient.[facility] HospitalIn the event this information is protected by the Federal Confidentiality of Alcohol and Drug Abuse Patient Records regulations: The Federal rules restrict any use of the information to criminally investigate or prosecute any alcohol or drug abuse patient.[facility] HospitalIn the event this information is protected by the Federal Confidentiality of Alcohol and Drug Abuse Patient Records regulations: The Federal rules restrict any use of the information to criminally investigate or prosecute any alcohol or drug abuse patient.[facility] HospitalIn the event this information is protected by the Federal Confidentiality of Alcohol and Drug Abuse Patient Records regulations: The Federal rules restrict any use of the information to criminally investigate or prosecute any alcohol or drug abuse patient.[facility] HospitalIn the event this information is protected by the Federal Confidentiality of Alcohol and Drug Abuse Patient Records regulations: The Federal rules restrict any use of the information to criminally investigate or prosecute any alcohol or drug abuse patient.[facility] HospitalIn the event this information is protected by the Federal Confidentiality of Alcohol and Drug Abuse Patient Records regulations: The Federal rules restrict any use of the information to criminally investigate or prosecute any alcohol or drug abuse patient.[facility] HospitalIn the event this information is protected by the Federal Confidentiality of Alcohol and Drug Abuse Patient Records regulations: The Federal rules restrict any use of the information to criminally investigate or prosecute any alcohol or drug abuse patient.[facility] HospitalIn the event this information is protected by the Federal Confidentiality of Alcohol and Drug Abuse Patient Records regulations: The Federal rules restrict any use of the information to criminally investigate or prosecute any alcohol or drug abuse patient.[facility] HospitalIn the event this information is protected by the Federal Confidentiality of Alcohol and Drug Abuse Patient Records regulations: The Federal rules restrict any use of the information to criminally investigate or prosecute any alcohol or drug abuse patient.[facility] HospitalIn the event this information is protected by the Federal Confidentiality of Alcohol and Drug Abuse Patient Records regulations: The Federal rules restrict any use of the information to criminally investigate or prosecute any alcohol or drug abuse patient.[facility] HospitalIn the event this information is protected by the Federal Confidentiality of Alcohol and Drug Abuse Patient Records regulations: The Federal rules restrict any use of the information to criminally investigate or prosecute any alcohol or drug abuse patient.[facility] HospitalIn the event this information is protected by the Federal Confidentiality of Alcohol and Drug Abuse Patient Records regulations: The Federal rules restrict any use of the information to criminally investigate or prosecute any alcohol or drug abuse patient.[facility] HospitalIn the event this information is protected by the Federal Confidentiality of Alcohol and Drug Abuse Patient Records regulations: The Federal rules restrict any use of the information to criminally investigate or prosecute any alcohol or drug abuse patient.[facility] HospitalIn the event this information is protected by the Federal Confidentiality of Alcohol and Drug Abuse Patient Records regulations: The Federal rules restrict any use of the information to criminally investigate or prosecute any alcohol or drug abuse patient.[facility] HospitalIn the event this information is protected by the Federal Confidentiality of Alcohol and Drug Abuse Patient Records regulations: The Federal rules restrict any use of the information to criminally investigate or prosecute any alcohol or drug abuse patient.[facility] HospitalIn the event this information is protected by the Federal Confidentiality of Alcohol and Drug Abuse Patient Records regulations: The Federal rules restrict any use of the information to criminally investigate or prosecute any alcohol or drug abuse patient.[facility] HospitalIn the event this information is protected by the Federal Confidentiality of Alcohol and Drug Abuse Patient Records regulations: The Federal rules restrict any use of the information to criminally investigate or prosecute any alcohol or drug abuse patient.[facility] HospitalIn the event this information is protected by the Federal Confidentiality of Alcohol and Drug Abuse Patient Records regulations: The Federal rules restrict any use of the information to criminally investigate or prosecute any alcohol or drug abuse patient.[facility] HospitalIn the event this information is protected by the Federal Confidentiality of Alcohol and Drug Abuse Patient Records regulations: The Federal rules restrict any use of the information to criminally investigate or prosecute any alcohol or drug abuse patient.[facility] HospitalIn the event this information is protected by the Federal Confidentiality of Alcohol and Drug Abuse Patient Records regulations: The Federal rules restrict any use of the information to criminally investigate or prosecute any alcohol or drug abuse patient.[facility] HospitalIn the event this information is protected by the Federal Confidentiality of Alcohol and Drug Abuse Patient Records regulations: The Federal rules restrict any use of the information to criminally investigate or prosecute any alcohol or drug abuse patient.[facility] HospitalIn the event this information is protected by the Federal Confidentiality of Alcohol and Drug Abuse Patient Records regulations: The Federal rules restrict any use of the information to criminally investigate or prosecute any alcohol or drug abuse patient.[facility] HospitalIn the event this information is protected by the Federal Confidentiality of Alcohol and Drug Abuse Patient Records regulations: The Federal rules restrict any use of the information to criminally investigate or prosecute any alcohol or drug abuse patient.[facility] HospitalIn the event this information is protected by the Federal Confidentiality of Alcohol and Drug Abuse Patient Records regulations: The Federal rules restrict any use of the information to criminally investigate or prosecute any alcohol or drug abuse patient.[facility] HospitalIn the event this information is protected by the Federal Confidentiality of Alcohol and Drug Abuse Patient Records regulations: The Federal rules restrict any use of the information to criminally investigate or prosecute any alcohol or drug abuse patient.[facility] HospitalIn the event this information is protected by the Federal Confidentiality of Alcohol and Drug Abuse Patient Records regulations: The Federal rules restrict any use of the information to criminally investigate or prosecute any alcohol or drug abuse patient.[facility] HospitalIn the event this information is protected by the Federal Confidentiality of Alcohol and Drug Abuse Patient Records regulations: The Federal rules restrict any use of the information to criminally investigate or prosecute any alcohol or drug abuse patient.[facility] HospitalIn the event this information is protected by the Federal Confidentiality of Alcohol and Drug Abuse Patient Records regulations: The Federal rules restrict any use of the information to criminally investigate or prosecute any alcohol or drug abuse patient.[facility] HospitalIn the event this information is protected by the Federal Confidentiality of Alcohol and Drug Abuse Patient Records regulations: The Federal rules restrict any use of the information to criminally investigate or prosecute any alcohol or drug abuse patient.[facility] HospitalIn the event this information is protected by the Federal Confidentiality of Alcohol and Drug Abuse Patient Records regulations: The Federal rules restrict any use of the information to criminally investigate or prosecute any alcohol or drug abuse patient.[facility] HospitalIn the event this information is protected by the Federal Confidentiality of Alcohol and Drug Abuse Patient Records regulations: The Federal rules restrict any use of the information to criminally investigate or prosecute any alcohol or drug abuse patient.[facility] HospitalIn the event this information is protected by the Federal Confidentiality of Alcohol and Drug Abuse Patient Records regulations: The Federal rules restrict any use of the information to criminally investigate or prosecute any alcohol or drug abuse patient.[facility] HospitalIn the event this information is protected by the Federal Confidentiality of Alcohol and Drug Abuse Patient Records regulations: The Federal rules restrict any use of the information to criminally investigate or prosecute any alcohol or drug abuse patient.[facility] HospitalIn the event this information is protected by the Federal Confidentiality of Alcohol and Drug Abuse Patient Records regulations: The Federal rules restrict any use of the information to criminally investigate or prosecute any alcohol or drug abuse patient.[facility] HospitalIn the event this information is protected by the Federal Confidentiality of Alcohol and Drug Abuse Patient Records regulations: The Federal rules restrict any use of the information to criminally investigate or prosecute any alcohol or drug abuse patient.[facility] HospitalIn the event this information is protected by the Federal Confidentiality of Alcohol and Drug Abuse Patient Records regulations: The Federal rules restrict any use of the information to criminally investigate or prosecute any alcohol or drug abuse patient.[facility] HospitalIn the event this information is protected by the Federal Confidentiality of Alcohol and Drug Abuse Patient Records regulations: The Federal rules restrict any use of the information to criminally investigate or prosecute any alcohol or drug abuse patient.[facility] HospitalIn the event this information is protected by the Federal Confidentiality of Alcohol and Drug Abuse Patient Records regulations: The Federal rules restrict any use of the information to criminally investigate or prosecute any alcohol or drug abuse patient.[facility] HospitalIn the event this information is protected by the Federal Confidentiality of Alcohol and Drug Abuse Patient Records regulations: The Federal rules restrict any use of the information to criminally investigate or prosecute any alcohol or drug abuse patient.[facility] HospitalIn the event this information is protected by the Federal Confidentiality of Alcohol and Drug Abuse Patient Records regulations: The Federal rules restrict any use of the information to criminally investigate or prosecute any alcohol or drug abuse patient.[facility] HospitalIn the event this information is protected by the Federal Confidentiality of Alcohol and Drug Abuse Patient Records regulations: The Federal rules restrict any use of the information to criminally investigate or prosecute any alcohol or drug abuse patient.[facility] HospitalIn the event this information is protected by the Federal Confidentiality of Alcohol and Drug Abuse Patient Records regulations: The Federal rules restrict any use of the information to criminally investigate or prosecute any alcohol or drug abuse patient.[facility] HospitalIn the event this information is protected by the Federal Confidentiality of Alcohol and Drug Abuse Patient Records regulations: The Federal rules restrict any use of the information to criminally investigate or prosecute any alcohol or drug abuse patient.[facility] HospitalIn the event this information is protected by the Federal Confidentiality of Alcohol and Drug Abuse Patient Records regulations: The Federal rules restrict any use of the information to criminally investigate or prosecute any alcohol or drug abuse patient.[facility] HospitalIn the event this information is protected by the Federal Confidentiality of Alcohol and Drug Abuse Patient Records regulations: The Federal rules restrict any use of the information to criminally investigate or prosecute any alcohol or drug abuse patient.[facility] HospitalIn the event this information is protected by the Federal Confidentiality of Alcohol and Drug Abuse Patient Records regulations: The Federal rules restrict any use of the information to criminally investigate or prosecute any alcohol or drug abuse patient.[facility] HospitalIn the event this information is protected by the Federal Confidentiality of Alcohol and Drug Abuse Patient Records regulations: The Federal rules restrict any use of the information to criminally investigate or prosecute any alcohol or drug abuse patient.[facility] HospitalIn the event this information is protected by the Federal Confidentiality of Alcohol and Drug Abuse Patient Records regulations: The Federal rules restrict any use of the information to criminally investigate or prosecute any alcohol or drug abuse patient.[facility] HospitalIn the event this information is protected by the Federal Confidentiality of Alcohol and Drug Abuse Patient Records regulations: The Federal rules restrict any use of the information to criminally investigate or prosecute any alcohol or drug abuse patient.[facility] HospitalIn the event this information is protected by the Federal Confidentiality of Alcohol and Drug Abuse Patient Records regulations: The Federal rules restrict any use of the information to criminally investigate or prosecute any alcohol or drug abuse patient.[facility] HospitalIn the event this information is protected by the Federal Confidentiality of Alcohol and Drug Abuse Patient Records regulations: The Federal rules restrict any use of the information to criminally investigate or prosecute any alcohol or drug abuse patient.[facility] HospitalIn the event this information is protected by the Federal Confidentiality of Alcohol and Drug Abuse Patient Records regulations: The Federal rules restrict any use of the information to criminally investigate or prosecute any alcohol or drug abuse patient.[facility] HospitalIn the event this information is protected by the Federal Confidentiality of Alcohol and Drug Abuse Patient Records regulations: The Federal rules restrict any use of the information to criminally investigate or prosecute any alcohol or drug abuse patient.[facility] HospitalIn the event this information is protected by the Federal Confidentiality of Alcohol and Drug Abuse Patient Records regulations: The Federal rules restrict any use of the information to criminally investigate or prosecute any alcohol or drug abuse patient.[facility] HospitalIn the event this information is protected by the Federal Confidentiality of Alcohol and Drug Abuse Patient Records regulations: The Federal rules restrict any use of the information to criminally investigate or prosecute any alcohol or drug abuse patient.[facility] HospitalIn the event this information is protected by the Federal Confidentiality of Alcohol and Drug Abuse Patient Records regulations: The Federal rules restrict any use of the information to criminally investigate or prosecute any alcohol or drug abuse patient.[facility] Reason for Visit (unrecogniz ed section and content) Reason Comments Spirometry Specialty Diagnoses / Procedures Referred By Contac t Referred To Contact [facility] Diagnoses Cystic fibrosis with pulmonary manifestations (HCC) Procedures SPIROMETRY BASELINE ONLY SPMTRY W/VC EXPIRATORY CRISTINA W/WO MXML VOL VNTAlex Pendleton MD [address] [place] [address] [facility] [address] [place] [id number] Referral ID Status Reason Start Date Expiration Date V isits Requested Visits Authorized [id number] Closed Auto-Generate d Referral 11/12/2023 12/11/2024 1 1 Reason Comments Recheck Specialty Diagnoses / Procedures Referred By Contac t Referred To Contact HOSP INPATIENT Diagnoses Cystic fibrosis exacerbation (HCC) Cystic fibrosis with pulmonary exacerbation (HCC) Procedures [facility] IP/OBS [facility] HIGH MDM 75 MINUTES [facility] [id number] [place] [address] Referral ID Status Reason Start Date Expiration Date Visits Re quested Visits Authorized [id number] 1 1 Specialty Diagnoses / Procedures Referred By Contac t Referred To Contact Diagnoses Cystic fibrosis with pulmonary manifestations cf Procedures [facility] IP[facility]OBS [facility] HIGH MDM 75 MINUTES IV Antibiotics [facility] [address] [place] [address] Referral ID Status Reason Start Date Expiration Date Visits Re quested Visits Authorized [id number] 1 1 Reason Comments New CF Referral Reason Comments Emesis Tachycardia Specialty Diagnoses / Procedures Referred By Contac t Referred To Contact [facility] Diagnoses Cystic fibrosis Intractable nausea and vomiting Acute kidney injury [facility] [address] [address] Referral ID Status Reason Start Date Expiration Date Visits Re quested Visits Authorized [id number] 1 1 Reason Comments Cystic Fibrosis Specialty Diagnoses / Procedures Referred By Contac t Referred To Contact [facility] Diagnoses Cystic Fibrosis Procedures REFERRAL TO [facility] FINANCIAL COUNSELOR [place] NEW CYSTIC FIBROSIS She Pete DO [address] [place] [address] [address] Referral ID Status Reason Start Date Expiration Date Visits Requested Visits Authorized [id number] Pending Review Financial Clearance Required - [employer] 2022 10/15/2022 1 1 Reason Comments Coughing Up Blood Reason Comments CoPat Start Reason Comments CoPat Agency Reason Comments Outside Lab Results copat Specialty Diagnoses / Procedures Referred By Contac t Referred To Contact [facility] Diagnoses Cystic fibrosis (HCC) Procedures SPIROMETRY BASELINE ONLY SPMTRY W/VC EXPIRATORY CRISTINA W/WO MXML VOL VNTJ Sally Schneider, CASING INSPECTOR.ACQUISITION ANALYST [address] [place] [address] [place] [address] Referral ID Status Reason Start Date Expiration Date V isits Requested Visits Authorized [id number] Closed Auto-Generate d Referral 08/06/2022 09/05/2023 1 1 Reason Comments Follow Up Doing good Reason Comments CoPat Stop Reason Comments Medication Problem Specialty Diagnoses / Procedures Referred By Contac t Referred To Contact [facility] Diagnoses Cystic fibrosis with pulmonary manifestations (HCC) 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) Procedures SPIROMETRY BASELINE ONLY SPMTRY W/VC EXPIRATORY CRISTINA W/WO MXML VOL VNTJ She Pete DO [address] [place] [address] [address] Referral ID Status Reason Start Date Expiration Date V isits Requested Visits Authorized [id number] Closed Auto-Generate d Referral 07/21/2022 08/20/2023 1 1 Reason Comments Follow Up Patient requesting r efill on Celexa Specialty Diagnoses / Procedures Referred By Contac t Referred To Contact Pulmonary Disease / PULMONARY MEDICINE Diagnoses ESTABLISHED - CF Procedures RI EST CYSTIC FIBROSIS She Pete DO [address] [place] [address] She Pete DO [address] [place] [address] Referral ID Status Reason Start Date Expiration Date V isits Requested Visits Authorized [id number] Pending Review 09/11/2022 12/10/2022 1 1 Reason Onset Date Comments Refill Request 09/25/2022 Reason Comments Refill Request Reason Comments Appointment Referral ID Status Reason Start Date Expiration Date V isits Requested Visits Authorized [id number] Closed Auto-Generate d Referral 08/09/2022 09/08/2023 1 1 Reason Comments Outside Lab Results Referral ID Status Reason Start Date Expiration Date V isits Requested Visits Authorized [id number] Closed Auto-Generate d Referral 11/11/2022 12/11/2023 1 1 Reason Comments Extend CoPat 11/29 Reason Comments cystic fybrosis Specialty Diagnoses / Procedures Referred By Contac t Referred To Contact Pulmonary Disease / PULMONARY MEDICINE Diagnoses Cystic Fibrosis Procedures RI EST CYSTIC FIBROSIS- FOLLOW UP APPOINTMENT IN PERSON She Pete DO [address] [place] [address] She Pete DO [address] [place] [address] Referral ID Status Reason Start Date Expiration Date V isits Requested Visits Authorized [id number] Pending Review 11/20/2022 02/18/2023 1 1 Reason Onset Date Comments Refill Request 11/20/2022 Reason Onset Date Comments Refill Request 11/20/2022 Reason Comments Results Specialty Diagnoses / Procedures Referred By Contac t Ref[facility] Diagnoses CF (cystic fibrosis) ([facility]) Procedures SPIROMETRY BASELINE ONLY SPMTRY W/VC EXPIRATORY CRISTINA W/WO MXML VOL VNTJ She Pete DO [address] [place] [address] [facility] [place] [address] [place] [address] Referral ID Status Reason Start Date Expiration Date V isits Requested Visits Authorized [id number] Closed Auto-Generate d Referral 08/28/2022 09/27/2023 1 1 Reason Comments Follow Up CF, chest is still t ight Specialty Diagnoses / Procedures Referred By Contac t Referred To Contact Internal Medicine / PULMONARY MEDICINE Diagnoses Cystic Fibrosis Procedures RI EST CYSTIC FIBROSIS Jean Pierre Kilgore MD 1 [facility] [address] [place] [address] Jean Pierre Kilgore MD 1 [facility] [address] [place] [address] Referral ID Status Reason Start Date Expiration Date V isits Requested Visits Authorized [id number] Pending Review 12/04/2022 03/04/2023 1 1 Reason Comments Benefits Authorization Reason Comments Diabetes Reason Comments Insurance Authorization for 0.9% Sodium Chloride 1000 mlInfuse 1000 ml daily for 4 days Reason Comments Insurance Authorization for Vancomycin 7 50mg IV every 12 hours ,Meropenem 1.5gm IV every 8 hours ,Benadryl 50mg [id number] Reason Comments Insurance Authorization Copat extensions from 11/23/22-12/05/22 for Meropenem 1.5g q8h and vancomycin 0.75g q12h Reason Comments Follow Up Coughing up blood a week ago Specialty Diagnoses / Procedures Referred By Contac t Referred To Contact [facility] Diagnoses Cystic fibrosis with pulmonary manifestations (HCC) Procedures SPIROMETRY BASELINE ONLY SPMTRY W/VC EXPIRATORY CRISTINA W/WO MXML VOL VNTJ She Pete, DO [address] [place] [address] [facility] [place] [address] [place] [address] Referral ID Status Reason Start Date Expiration Date V isits Requested Visits Authorized [id number] Closed Auto-Generate d Referral 03/03/2023 04/01/2024 1 1 Reason Comments Follow Up Still coughingHad se izure on Friday Reason Comments Advice Only Discussion about tra nsplant readiness Reason Comments Patient Question Reason Comments CF chart review Reason Comments Patient Education Reassessment Reason Comments Patient Update Reason Comments Extend CoPat 03/28 Reason Comments Follow Up Runnny nose, cough, head pressure x 3 days Specialty Diagnoses / Procedures Referred By Contac t Referred To Contact Pulmonary Disease / PULMONARY MEDICINE Diagnoses CF/est Procedures RI EST CYSTIC FIBROSIS She Pete, DO [address] [place] [address] She Pete, [address] [place] [address] Referral ID Status Reason Start Date Expiration Date V isits Requested Visits Authorized [id number] Pending Review 03/19/2023 06/17/2023 1 1 Reason Comments PICC Line Reason Comments Returning Patient's Call Specialty Diagnoses / Procedures Referred By Contac t Referred To Contact [facility] Diagnoses Cystic fibrosis (HCC) Procedures SPIROMETRY BASELINE ONLY SPMTRY W/VC EXPIRATORY CRISTINA W/WO MXML VOL VNTJ She Pete, DO [address] [place] [address] [address] Referral ID Status Reason Start Date Expiration Date V isits Requested Visits Authorized [id number] Closed Auto-Generate d Referral 03/19/2023 04/17/2024 1 1 Reason Comments Recheck No concerns Specialty Diagnoses / Procedures Referred By Contac t Referred To Contact Internal Medicine / PULMONARY MEDICINE Diagnoses F/U Procedures RI EST CYSTIC FIBROSIS Jean Pierre Kilgore MD [address] [place] [address] Jean Pierre Kilgore MD 1 [facility] [address] [place] [address] Referral ID Status Reason Start Date Expiration Date V isits Requested Visits Authorized [id number] Pending Review 06/04/2023 09/02/2023 1 1 Specialty Diagnoses / Procedures Referred By Contac t Referred To Contact [facility] Diagnoses Cystic fibrosis with pulmonary manifestations (HCC) Cystic fibrosis with pulmonary exacerbation (HCC) Procedures SPIROMETRY BASELINE ONLY SPMTRY W/VC EXPIRATORY CRISTINA W/WO MXML VOL VNTJ She Pete, DO [address] [place] [address] [address] Referral ID Status Reason Start Date Expiration Date V isits Requested Visits Authorized [id number] Closed Auto-Generate d Referral 11/20/2022 12/20/2023 1 1 Reason Comments Recheck Reason Comments 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 Reason Comments Home Nebulizer Order Reason Comments New Patient Reason Comments Follow Up Reason Comments Cystic Fibrosis Reason Comments CoPat Start Meropenem, vancomyci n Reason Comments Hospital F/U Reason Comments Follow Up Phone Call f/u all clear Reason Comments CoPat Management Weekly labs Reason Comments Dose Change Copat vancomycin Reason Comments Returning Patient's Call insurance Reason Comments [place] Reason Comments Benefits Authorization SPS [Denied Mar 02] Reason Comments New Patient CF related liver dis ease Reason Comments Annual CF Respiratory Review Specialty Diagnoses / Procedures Referred By [facility] Referred To Contact MR IMAGING Diagnoses Abnormal results of liver function studies Procedures MRI PANC/MARYAM WO/W IVCON MRI ABDOMEN W/O & W/CONTRAST MATERIAL Mono Lan MD [address] [place] [id number] Mr Imaging [place] [address] Referral ID Status Reason Start Date Expiration Date V isits Requested Visits Authorized [id number] Closed Auto-Generate d Referral 04/23/2024 06/22/2024 1 1 Reason Comments Recheck Reason Comments Liver Disease Reason Comments Refill Request Patient Update Specialty Diagnoses / Procedures [facility] Diagnoses Cystic fibrosis with pulmonary manifestations (HCC) Procedures SPIROMETRY BASELINE ONLY SPMTRY W/VC EXPIRATORY CRISTINA W/WO MXML VOL Jean Pierre Chase MD [address] [facility] [address] [place] [address] [facility] [address] [place] [address] Referral ID Status Reason Start Date Expiration Date V isits Requested Visits Authorized [id number] Closed Auto-Generate d Referral 05/05/2024 06/04/2025 1 1 Reason Comments Follow Up 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 Care Teams (unrecognized sec tion and content) Threading Machine Setter Relationship Specialty Start Date End Date Stephie Ramirez, CASING INSPECTOR.ACQUISITION ANALYST [address] [place] [address] Referring Endocrinology 09/19/21 Threading Machine Setter Relationship Specialty Start Date End Date Stephie Ramirez, CASING INSPECTOR.ACQUISITION ANALYST [address] [place] [address] Referring Endocrinology 09/19/21 Threading Machine Setter Relationship Specialty Start Date End Date No Primary Care, , [facility] [place] [address] PCP - General Pediatrics 12/09/16 Jean Pierre Kilgore MD Attending Physician Internal Medicine 12/09/16 Orquidea Lemus LISW-Tamela [facility] [address] Drip Box Tender Social work 12/04/20 Orquidea Mckeon, [place] [facility] [address] Supplier Quality Specialist Nutrition 08/01/21 Amadou Catsañeda APRN-ACQUISITION ANALYST [facility] [place] [address] Nurse Practitioner Nurse Practitioner 02/08/22 Maryam Boyer, RN [facility] [place] [address] Registered Nurse 02/08/22 Whitley Hoff, [place] [facility] [address] Registered Nurse 02/08/22 Threading Machine Setter Relationship Specialty Start Date End Date Stephie Ramirez, CASING INSPECTOR.ACQUISITION ANALYST [address] [place] [address] Referring Endocrinology 09/19/21 Threading Machine Setter Relationship Specialty Start Date End Date Stephie Ramirez, CASING INSPECTOR.ACQUISITION ANALYST [address] [place] [address] Referring Endocrinology 09/19/21 Threading Machine Setter Relationship Specialty Start Date End Date Stephie Ramirez, CASING INSPECTOR.ACQUISITION ANALYST [address] [place] [address] Referring Endocrinology 09/19/21 Threading Machine Setter Relationship Specialty Start Date End Date Stephie Ramirez, CASING INSPECTOR.ACQUISITION ANALYST [address] [place] [address] Referring Endocrinology 09/19/21 Threading Machine Setter Relationship Specialty Start Date End Date Stephie Ramirez, CASING INSPECTOR.ACQUISITION ANALYST [address] [place] [address] Referring Endocrinology 09/19/21 Threading Machine Setter Relationship Specialty Start Date End Date Stephie Ramirez, CASING INSPECTOR.ACQUISITION ANALYST [address] [place] [address] Referring Endocrinology 09/19/21 Threading Machine Setter Relationship Specialty Start Date End Date Stephie Ramirez, CASING INSPECTOR.ACQUISITION ANALYST [address] [facility] [place] [address] Referring Endocrinology 09/19/21 Threading Machine Setter Relationship Specialty Start Date End Date Stephie Ramirez, CASING INSPECTOR.ACQUISITION ANALYST [address] [place] [address] Referring Endocrinology 09/19/21 Threading Machine Setter Relationship Specialty Start Date End Date Stephie Ramirez, CASING INSPECTOR.ACQUISITION ANALYST [address] [facility] [place] [address] Referring Endocrinology 09/19/21 Threading Machine Setter Relationship Specialty Start Date End Date Stephie Ramirez, CASING INSPECTOR.ACQUISITION ANALYST [address] [place] [address] Referring Endocrinology 09/19/21 Threading Machine Setter Relationship Specialty Start Date End Date Stephie Ramirez, CASING INSPECTOR.ACQUISITION ANALYST [address] [place] [address] Referring Endocrinology 09/19/21 Threading Machine Setter Relationship Specialty Start Date End Date Stephie Ramirez, CASING INSPECTOR.ACQUISITION ANALYST [address] [place] [address] Referring Endocrinology 09/19/21 Threading Machine Setter Relationship Specialty Start Date End Date Stephie Ramirez, CASING INSPECTOR.ACQUISITION ANALYST [address] [place] [address] Referring Endocrinology 09/19/21 Threading Machine Setter Relationship Specialty Start Date End Date Stephie Ramirez, CASING INSPECTOR.ACQUISITION ANALYST [address] [place] [address] Referring Endocrinology 09/19/21 Threading Machine Setter Relationship Specialty Start Date End Date Stephie Ramirez, CASING INSPECTOR.ACQUISITION ANALYST [address] [place] [address] Referring Endocrinology 09/19/21 Threading Machine Setter Relationship Specialty Start Date End Date Stephie Ramirez, CASING INSPECTOR.ACQUISITION ANALYST [address] [place] [address] Referring Endocrinology 09/19/21 Threading Machine Setter Relationship Specialty Start Date End Date Stephie Ramirez, CASING INSPECTOR.ACQUISITION ANALYST [address] [place] [address] Referring Endocrinology 09/19/21 Threading Machine Setter Relationship Specialty Start Date End Date Stephie Ramirez, CASING INSPECTOR.ACQUISITION ANALYST [address] [place] [address] Referring Endocrinology 09/19/21 Threading Machine Setter Relationship Specialty Start Date End Date Stephie Ramirez, CASING INSPECTOR.ACQUISITION ANALYST [address] [place] [address] Referring Endocrinology 09/19/21 Threading Machine Setter Relationship Specialty Start Date End Date Stephie Ramirez, CASING INSPECTOR.ACQUISITION ANALYST [address] [place] [address] Referring Endocrinology 09/19/21 Threading Machine Setter Relationship Specialty Start Date End Date Stephie Ramirez, CASING INSPECTOR.ACQUISITION ANALYST [address] [place] [address] Referring Endocrinology 09/19/21 Threading Machine Setter Relationship Specialty Start Date End Date Stephie Ramirez, CASING INSPECTOR.ACQUISITION ANALYST [address] [place] [address] Referring Endocrinology 09/19/21 Threading Machine Setter Relationship Specialty Start Date End Date Stephie Ramirez, CASING INSPECTOR.ACQUISITION ANALYST [address] [place] [address] Referring Endocrinology 09/19/21 Threading Machine Setter Relationship Specialty Start Date End Date Stephie Ramirez, CASING INSPECTOR.ACQUISITION ANALYST [address] [place] [address] Referring Endocrinology 09/19/21 Threading Machine Setter Relationship Specialty Start Date End Date Stephie Ramirez, CASING INSPECTOR.ACQUISITION ANALYST [address] [place] [address] Referring Endocrinology 09/19/21 Threading Machine Setter Relationship Specialty Start Date End Date Stephie Ramirez, CASING INSPECTOR.ACQUISITION ANALYST [address] [place] [address] Referring Endocrinology 09/19/21 Threading Machine Setter Relationship Specialty Start Date End Date Stephie Ramirez, CASING INSPECTOR.ACQUISITION ANALYST [address] [place] [address] Referring Endocrinology 09/19/21 Threading Machine Setter Relationship Specialty Start Date End Date Stephie Ramirez, CASING INSPECTOR.ACQUISITION ANALYST [address] [place] [address] Referring Endocrinology 09/19/21 Threading Machine Setter Relationship Specialty Start Date End Date Stephie Ramirez, CASING INSPECTOR.ACQUISITION ANALYST [address] [place] [address] Referring Endocrinology 09/19/21 Threading Machine Setter Relationship Specialty Start Date End Date Stephie Ramirez, CASING INSPECTOR.ACQUISITION ANALYST [address] [place] [address] Referring Endocrinology 09/19/21 Threading Machine Setter Relationship Specialty Start Date End Date Stephie Ramirez, CASING INSPECTOR.ACQUISITION ANALYST [address] [place] [address] Referring Endocrinology 09/19/21 Threading Machine Setter Relationship Specialty Start Date End Date Stephie Ramirez, CASING INSPECTOR.ACQUISITION ANALYST [address] [place] [address] Referring Endocrinology 09/19/21 Threading Machine Setter Relationship Specialty Start Date End Date Stephie Ramirez, CASING INSPECTOR.ACQUISITION ANALYST [address] [place] [address] Referring Endocrinology 09/19/21 Threading Machine Setter Relationship Specialty Start Date End Date Stephie Ramirez, CASING INSPECTOR.ACQUISITION ANALYST [address] [place] [address] Referring Endocrinology 09/19/21 Threading Machine Setter Relationship Specialty Start Date End Date Stephie Ramirez, CASING INSPECTOR.ACQUISITION ANALYST [address] [place] [address] Referring Endocrinology 09/19/21 Threading Machine Setter Relationship Specialty Start Date End Date Stephie Ramirez, CASING INSPECTOR.ACQUISITION ANALYST [address] [place] [address] Referring Endocrinology 09/19/21 Threading Machine Setter Relationship Specialty Start Date End Date Stephie Ramirez, CASING INSPECTOR.ACQUISITION ANALYST [address] [place] [address] Referring Endocrinology 09/19/21 Threading Machine Setter Relationship Specialty Start Date End Date Stephie Ramirez, CASING INSPECTOR.ACQUISITION ANALYST [address] [place] [address] Referring Endocrinology 09/19/21 Threading Machine Setter Relationship Specialty Start Date End Date Stephie Ramirez, CASING INSPECTOR.ACQUISITION ANALYST [address] [place] [address] Referring Endocrinology 09/19/21 Threading Machine Setter Relationship Specialty Start Date End Date Stephie Ramirez, CASING INSPECTOR.ACQUISITION ANALYST [address] [place] [address] Referring Endocrinology 09/19/21 Threading Machine Setter Relationship Specialty Start Date End Date Stephie Ramirez, CASING INSPECTOR.ACQUISITION ANALYST [address] [place] [address] Referring Endocrinology 09/19/21 Threading Machine Setter Relationship Specialty Start Date End Date Stephie Ramirez, CASING INSPECTOR.ACQUISITION ANALYST [address] [place] [address] Referring Endocrinology 09/19/21 Threading Machine Setter Relationship Specialty Start Date End Date Stephie Ramirez, CASING INSPECTOR.ACQUISITION ANALYST [address] [place] [address] Referring Endocrinology 09/19/21 Threading Machine Setter Relationship Specialty Start Date End Date Stephie Ramirez, CASING INSPECTOR.ACQUISITION ANALYST [address] [facility] [place] [address] Referring Endocrinology 09/19/21 Threading Machine Setter Relationship Specialty Start Date End Date Stephie Ramirez, CASING INSPECTOR.ACQUISITION ANALYST [address] [place] [address] Referring Endocrinology 09/19/21 Threading Machine Setter Relationship Specialty Start Date End Date Stephie Ramirez, CASING INSPECTOR.ACQUISITION ANALYST [address] [place] [address] Referring Endocrinology 09/19/21 Threading Machine Setter Relationship Specialty Start Date End Date Stephie Ramirez, CASING INSPECTOR.ACQUISITION ANALYST [address] [place] [address] Referring Endocrinology 09/19/21 Threading Machine Setter Relationship Specialty Start Date End Date Stephie Ramirez, CASING INSPECTOR.ACQUISITION ANALYST [address] [place] [address] Referring Endocrinology 09/19/21 Threading Machine Setter Relationship Specialty Start Date End Date Stephie Ramirez, CASING INSPECTOR.ACQUISITION ANALYST [address] [place] [address] Referring Endocrinology 09/19/21 Threading Machine Setter Relationship Specialty Start Date End Date Stephie Ramirez, CASING INSPECTOR.ACQUISITION ANALYST [address] [place] [address] Referring Endocrinology 09/19/21 Threading Machine Setter Relationship Specialty Start Date End Date Stephie Ramirez, CASING INSPECTOR.ACQUISITION ANALYST [address] [place] [address] Referring Endocrinology 09/19/21 Threading Machine Setter Relationship Specialty Start Date End Date Stephie Ramirez, CASING INSPECTOR.ACQUISITION ANALYST [address] [place] [address] Referring Endocrinology 09/19/21 Threading Machine Setter Relationship Specialty Start Date End Date Stephie Ramirez, CASING INSPECTOR.ACQUISITION ANALYST [address] [place] [address] Referring Endocrinology 09/19/21 Threading Machine Setter Relationship Specialty Start Date End Date Stephie Ramirez, CASING INSPECTOR.ACQUISITION ANALYST [address] [place] [address] Referring Endocrinology 09/19/21 Threading Machine Setter Relationship Specialty Start Date End Date Stephie Ramirez, CASING INSPECTOR.ACQUISITION ANALYST [address] [place] [address] Referring Endocrinology 09/19/21 Threading Machine Setter Relationship Specialty Start Date End Date Stephie Ramirez, CASING INSPECTOR.ACQUISITION ANALYST [address] [place] [address] Referring Endocrinology 09/19/21 Threading Machine Setter Relationship Specialty Start Date End Date Stephie Ramirez, CASING INSPECTOR.ACQUISITION ANALYST [address] [place] [address] Referring Endocrinology 09/19/21 Threading Machine Setter Relationship Specialty Start Date End Date Setphie Ramirez, CASING INSPECTOR.ACQUISITION ANALYST [address] [place] [address] Referring Endocrinology 09/19/21 Threading Machine Setter Relationship Specialty Start Date End Date Stephie Ramirez, CASING INSPECTOR.ACQUISITION ANALYST [address] [place] [address] Referring Endocrinology 09/19/21 Threading Machine Setter Relationship Specialty Start Date End Date Stephie Ramirez, CASING INSPECTOR.ACQUISITION ANALYST [address] [place] [address] Referring Endocrinology 09/19/21 Threading Machine Setter Relationship Specialty Start Date End Date Stephie Ramirez, CASING INSPECTOR.ACQUISITION ANALYST [address] [place] [address] Referring Endocrinology 09/19/21 Threading Machine Setter Relationship Specialty Start Date End Date Stephie Ramirez, CASING INSPECTOR.ACQUISITION ANALYST [address] [place] [address] Referring Endocrinology 09/19/21 Threading Machine Setter Relationship Specialty Start Date End Date Stephie Ramirez, CASING INSPECTOR.ACQUISITION ANALYST [address] [place] [address] Referring Endocrinology 09/19/21 Threading Machine Setter Relationship Specialty Start Date End Date Stephie Ramirez, CASING INSPECTOR.ACQUISITION ANALYST [address] [place] [address] Referring Endocrinology 09/19/21 Threading Machine Setter Relationship Specialty Start Date End Date Stephie Ramirez, CASING INSPECTOR.ACQUISITION ANALYST [address] [facility] [place] [address] Referring Endocrinology 09/19/21 Threading Machine Setter Relationship Specialty Start Date End Date Stephie Ramirez, CASING INSPECTOR.ACQUISITION ANALYST [address] [place] [address] Referring Endocrinology 09/19/21 Threading Machine Setter Relationship Specialty Start Date End Date Stephie Ramirez, CASING INSPECTOR.ACQUISITION ANALYST [address] [place] [address] Referring Endocrinology 09/19/21 Threading Machine Setter Relationship Specialty Start Date End Date Stephie Ramirez, CASING INSPECTOR.ACQUISITION ANALYST [address] [place] [address] Referring Endocrinology 09/19/21 Jean Pierre Kilgore MD [address] [place] [address] [place], [place] [id number] Internal Medicine 08/18/23 Threading Machine Setter Relationship Specialty Start Date End Date Stephie Ramirez, CASING INSPECTOR.ACQUISITION ANALYST [address] [place], [place] [address] Referring Endocrinology 09/19/21 Jean Pierre Kilgore MD [address] [place], [place] [id number] Internal Medicine 08/18/23 Threading Machine Setter Relationship Specialty Start Date End Date Stephie Ramirez, CASING INSPECTOR.ACQUISITION ANALYST [address] [place], [place] [address] Referring Endocrinology 09/19/21 Jean Pierre Kilgore MD [address] [place], [place] [id number] Internal Medicine 08/18/[address] [place] [address] Registered Dietitian Nutrition 08/26/23 Threading Machine Setter Relationship Specialty Start Date End Date Stephie Ramirez, CASING INSPECTOR.ACQUISITION ANALYST [address] [place] [address] Referring Endocrinology 09/19/21 Jean Pierre Kilgore MD [address] [place] [address] Internal Medicine 08/18/[address] [place], [place] [address] Registered Dietitian Nutrition 08/26/23 Threading Machine Setter Relationship Specialty Start Date End Date Stephie Ramirez, CASING INSPECTOR.ACQUISITION ANALYST [address] [place], [place] [address] Referring Endocrinology 09/19/21 Jean Pierre Kilgore MD [address] [address] [place], [place] [id number] Internal Medicine 08/18/[address] [place], [place] [address] Registered Dietitian Nutrition 08/26/23 Threading Machine Setter Relationship Specialty Start Date End Date Stephie Ramirez, CASING INSPECTOR.ACQUISITION ANALYST [address] [place] [address] Referring Endocrinology 09/19/21 Jean Pierre Kilgore MD [address] [address] [place] [address] Internal Medicine 08/18/[address] [facility] [place] [address] Registered Dietitian Nutrition 08/26/23 Threading Machine Setter Relationship Specialty Start Date End Date Stephie Ramirez, CASING INSPECTOR.ACQUISITION ANALYST [address] [place], [place] [id number] Referring Endocrinology 09/19/21 Jean Pierre Kilgore MD [address] [address] [place], [place] [id number] Internal Medicine 08/18/[address] [place] [place] [address]31 Registered Dietitian Nutrition 08/26/23 Threading Machine Setter Relationship Specialty Start Date End Date Stephie Ramirez, CASING INSPECTOR.ACQUISITION ANALYST [address] [place], [place] [address] Referring Endocrinology 09/19/21 Threading Machine Setter Relationship Specialty Start Date End Date Stephie Ramirez, CASING INSPECTOR.ACQUISITION ANALYST [address] [place], [place] [address] Referring Endocrinology 09/19/21 Jean Pierre Kilgore MD [address] [place] [address] Internal Medicine 08/18/[address] [place] [address] Registered Dietitian Nutrition 08/26/23 Threading Machine Setter Relationship Specialty Start Date End Date Stephie Ramirez, CASING INSPECTOR.ACQUISITION ANALYST [address] [place], [place] [id number] Referring Endocrinology 09/19/21 Jean Pierre Kilgore MD [address] [place] [address] [place], [place] [id number] Internal Medicine 08/18/[address] [place] [address] Registered Dietitian Nutrition 08/26/23 Threading Machine Setter Relationship Specialty Start Date End Date Stephie Ramirez, CASING INSPECTOR.ACQUISITION ANALYST [address] [place], [place] [id number] Referring Endocrinology 09/19/21 Threading Machine Setter Relationship Specialty Start Date End Date Stephie Ramirez, CASING INSPECTOR.ACQUISITION ANALYST [address] [place], [place] [id number] Referring Endocrinology 09/19/21 Jean Pierre Kilgore MD [address] [facility], [place] [id number] Internal Medicine 08/18/[address] [place] [address] Registered Dietitian Nutrition 08/26/23 Threading Machine Setter Relationship Specialty Start Date End Date Stephie Ramirez, CASING INSPECTOR.ACQUISITION ANALYST [address] [place], [place] [id number] Referring Endocrinology 09/19/21 Jean Pierre Kilgore MD [address] [place] [address] [place] [address] Internal Medicine 08/18/[address] [place] [address] Registered Dietitian Nutrition 08/26/23 Threading Machine Setter Relationship Specialty Start Date End Date Stephie Ramirez, CASING INSPECTOR.ACQUISITION ANALYST [address] [place], [place] [id number] Referring Endocrinology 09/19/21 Jean Pierre Kilgore MD [address] [place] [address] [place], [place] [id number] Internal Medicine 08/18/[address] [place] [address] Registered Dietitian Nutrition 08/26/23 Threading Machine Setter Relationship Specialty Start Date End Date Stephie Ramirez, CASING INSPECTOR.ACQUISITION ANALYST [address] [place], [place] [id number] Referring Endocrinology 09/19/21 Jean Pierre Kilgore MD [address] [place] [address] [place] [address] Internal Medicine 08/18/[address] [place] [address] Registered Dietitian Nutrition 08/26/23 Threading Machine Setter Relationship Specialty Start Date End Date Stephie Ramirez, CASING INSPECTOR.ACQUISITION ANALYST [address] [place] [address] Referring Endocrinology 09/19/21 Jean Pierre Kilgore MD [address] [place] [address] [place] [address] Internal Medicine 08/18/[address] [place] [address] Registered Dietitian Nutrition 08/26/23 Threading Machine Setter Relationship Specialty Start Date End Date Stephie Ramirez, CASING INSPECTOR.ACQUISITION ANALYST [address] [place], [place] [id number] Referring Endocrinology 09/19/21 Jean Pierre Kilgore MD [address] [place] [address] [place], [place] [id number] Internal Medicine 08/18/[address] [place], [place] [address] Registered Dietitian Nutrition 08/26/23 Threading Machine Setter Relationship Specialty Start Date End Date Stephie Ramirez, CASING INSPECTOR.ACQUISITION ANALYST [address] [place], [place] [id number] Referring Endocrinology 09/19/21 Jean Pierre Kilgore MD [address] [place] [address] [place], [place] [id number] Internal Medicine 08/18/[address] [place] [address] Registered Dietitian Nutrition 08/26/23 Threading Machine Setter Relationship Specialty Start Date End Date Stephie Ramirez, CASING INSPECTOR.ACQUISITION ANALYST [address] [place] [address] Referring Endocrinology 09/19/21 Jean Pierre Kilgore MD [address] [place] [address] [place] [place] [address] Internal Medicine 08/18/[address] [place] [address] Registered Dietitian Nutrition 08/26/23 Threading Machine Setter Relationship Specialty Start Date End Date Stephie Ramirez, ADALI.ACQUISITION ANALYST [address] 234 [facility] AT [facility] [address] [place], [place] [id number] Referring Endocrinology 09/19/21 Jean Pierre Kilgore MD [address] [place] [address] [place] [address] Internal Medicine 08/18/[address] [place] [address] Registered Dietitian Nutrition 08/26/23 Threading Machine Setter Relationship Specialty Start Date End Date Stephie Ramirez, CASING INSPECTOR.ACQUISITION ANALYST [address] [place] [address] Referring Endocrinology 09/19/21 Jean Pierre Kilgore MD [address] [place] [address] [place] [address] [place] [address] Internal Medicine 08/18/[address] [place] [address] Registered Dietitian Nutrition 08/26/23 Threading Machine Setter Relationship Specialty Start Date End Date Stephie Ramirez, CASING INSPECTOR.ACQUISITION ANALYST [address] [place] [address] Referring Endocrinology 09/19/21 Jean Pierre Kilgore MD [address] [place] [address] [place] [place] [address] Internal Medicine 08/18/[address] [place] [address] Registered Dietitian Nutrition 08/26/23 Threading Machine Setter Relationship Specialty Start Date End Date Stephie Ramirez, CASING INSPECTOR.ACQUISITION ANALYST [address] [place] [address] Referring Endocrinology 09/19/21 Jean Pierre Kilgore MD [address] [place] [address] [place] [place] [address] Internal Medicine 08/18/[address] [place] [address] Registered Dietitian Nutrition 08/26/23 Threading Machine Setter Relationship Specialty Start Date End Date Stephie Ramirez, CASING INSPECTOR.ACQUISITION ANALYST [address] [place] [address] Referring Endocrinology 09/19/21 Jean Pirere Kilgore MD [address] [place] [address] [place] [address] [place] [address] Internal Medicine 08/18/[address] [place] [address] Registered Dietitian Nutrition 08/26/23 Threading Machine Setter Relationship Specialty Start Date End Date Stephie Ramirez, CASING INSPECTOR.ACQUISITION ANALYST [address] [place] [address] Referring Endocrinology 09/19/21 Jean Pierre Kilgore MD [address] [place] [address] [place], [place] [id number] Internal Medicine 08/18/[address] [place] [address] Registered Dietitian Nutrition 08/26/23 Threading Machine Setter Relationship Specialty Start Date End Date Stephie Ramirez, CASING INSPECTOR.ACQUISITION ANALYST [facility] [place], [place] [id number] Referring Endocrinology 09/19/21 Jean Pierre Kilgore MD [address] [place] [address] [place], [place] [id number] Internal Medicine 08/18/[address] [place] [address] Registered Dietitian Nutrition 08/26/23 Threading Machine Setter Relationship Specialty Start Date End Date Stephie Ramirez, CASING INSPECTOR.ACQUISITION ANALYST [facility] [address] [place] [address] Referring Endocrinology 09/19/21 Jean Pierre Kilgore MD [address] [place] [address] [place], [place] [id number] Internal Medicine 08/18/[address] [place] [address] Registered Dietitian Nutrition 08/26/23 Threading Machine Setter Relationship Specialty Start Date End Date Stephie Ramirez, CASING INSPECTOR.ACQUISITION ANALYST [address] [place], [place] [phone] Referring Endocrinology 09/19/21 Jean Pierre Kilgore MD [address] [place] [address] [place], [place] [id number] Internal Medicine 08/18/[address] [facility] [place] [id number] Registered Dietitian Nutrition 08/26/23 Threading Machine Setter Relationship Specialty Start Date End Date Stephie Ramirez, CASING INSPECTOR.ACQUISITION ANALYST [address] [place], [place] [id number] Referring Endocrinology 09/19/21 Jean Pierre Kilgore MD [address] [place] [address] [place], [place] [id number] Internal Medicine 08/18/[address] [facility] [place], [place] [address] Registered Dietitian Nutrition 08/26/23 Threading Machine Setter Relationship Specialty Start Date End Date Stephie Ramirez, CASING INSPECTOR.ACQUISITION ANALYST [address] [place], [place] [phone] Referring Endocrinology 09/19/21 Jean Pierre Kilgore MD [address] [place] [address] [place], [place] [id number] Internal Medicine 08/18/[address] [place] [address] Registered Dietitian Nutrition 08/26/23 Threading Machine Setter Relationship Specialty Start Date End Date Stephie Ramirez, ADALI.ACQUISITION ANALYST [address] [place], [place] [phone] Referring Endocrinology 09/19/21 Jean Pierre Kilgore MD [address] [place] [address] [place] [address] Internal Medicine 08/18/[address] [place] [address] Registered Dietitian Nutrition 08/26/23 Threading Machine Setter Relationship Specialty Start Date End Date Stephie Ramirez, CASING INSPECTOR.ACQUISITION ANALYST [address] [place], [place] [id number] Referring Endocrinology 09/19/21 Jean Pierre Kilgore MD [address] [place] [address] [place] [address] [place] [address] Internal Medicine 08/18/[address] [place] [address] Registered Dietitian Nutrition 08/26/23 Threading Machine Setter Relationship Specialty Start Date End Date Stephie Ramirez, CASING INSPECTOR.ACQUISITION ANALYST [address] [place] [address] Referring Endocrinology 09/19/21 Jean Pierre Kilgore MD [address] [place] [address] [place] [address] [place] [address] Internal Medicine 08/18/[address] [place] [address] Registered Dietitian Nutrition 08/26/23 Threading Machine Setter Relationship Specialty Start Date End Date Stephie Ramirez, CASING INSPECTOR.ACQUISITION ANALYST [address] [place] [address] Referring Endocrinology 09/19/21 Jean Pierre Kilgore MD [address] [place] [address] [place] [address] [place] [address] Internal Medicine 08/18/[address] [place] [address] Registered Dietitian Nutrition 08/26/23 Threading Machine Setter Relationship Specialty Start Date End Date Stephie Ramirez, CASING INSPECTOR.ACQUISITION ANALYST [address] [place] [address] Referring Endocrinology 09/19/21 Jean Pierre Kilgore MD [address] [place] [address] [place] [address] Internal Medicine 08/18/[address] [place] [address] Registered Dietitian Nutrition 08/26/23 Threading Machine Setter Relationship Specialty Start Date End Date Stephie Ramirez, CASING INSPECTOR.ACQUISITION ANALYST [address] [place], [place] [id number] Referring Endocrinology 09/19/21 Jean Pierre Kilgore MD [address] [place] [address] [place] [address] [place] [address] Internal Medicine 08/18/[address] [place] [address] Registered Dietitian Nutrition 08/26/23 Threading Machine Setter Relationship Specialty Start Date End Date Stephie Ramirez, CASING INSPECTOR.ACQUISITION ANALYST [address] [place] [address] Referring Endocrinology 09/19/21 Jean Pierre Kilgore MD [address] [place] [address] [place] [address] Internal Medicine 08/18/[address] [place] [address] Registered Dietitian Nutrition 08/26/23 Threading Machine Setter Relationship Specialty Start Date End Date Stephie Ramirez, CASING INSPECTOR.ACQUISITION ANALYST [address] [place] [address] Referring Endocrinology 09/19/21 Jean Pierre Kilgore MD [address] [address] [place], [place] [id number] Internal Medicine 08/18/[address] [place] [address] Registered Dietitian Nutrition 08/26/23 Threading Machine Setter Relationship Specialty Start Date End Date Stephie Ramirez, CASING INSPECTOR.ACQUISITION ANALYST [address] [place], [place] [phone] Referring Endocrinology 09/19/21 Jean Pierre Kilgore MD [address] [place] [address] [place], [place] [id number] Internal Medicine 08/18/[address] [place], [place] [address] Registered Dietitian Nutrition 08/26/23 Threading Machine Setter Relationship Specialty Start Date End Date Stephie Ramirez, CASING INSPECTOR.ACQUISITION ANALYST [address] [place] [address] Referring Endocrinology 09/19/21 Jean Pierre Kilgore MD [address] [address] [place], [place] [id number] Internal Medicine 08/18/[address] [place], [place] [address] Registered Dietitian Nutrition 08/26/23 Scheduled Active and Recently Administ ered Medications (unrecognized section and content) Medication Order 05/12/2022 05/13/2022 05/14/2022 dornase alpha (PULMOZYME) 2.5 mg/2.5mL nebulizer solution 2.5 mg 2.5 mg (0.0665 mg/kg/DAY), Nebulization, DAILY, 90 doses, First dose on Fri05/12/22 at 1630, Last dose on Fri08/09/22 at 0900 1630 (Not Given - Provider: Roya Kapoor RN - Reason: Patient/family refused) 808 (Not Given - Provider: Roya Kapoor RN - Reason: Patient/family refused) 915 (Not Given - Provider: Andreia Rose RN - Reason: Patient/family refused) Cjyozuim-Obftfyu-Fbglia& Ivacaf (Trikafta) oral tablet therapy pack 1 Tablet 1 Tablet, Oral, DAILY, First dose on 05/12/22 at 1630, Until Discontinued, Home Medication: 2 orange tablets in AM every even day, and 1 orange table in AM every odd day. Do not take blue pills. Take with fat containing food. Home supply verified over the phone with OLEKSANDR Pryor at [facility] 05-12-22. RN must override scan for administration., Home Medication: 2 orange tablets in AM every even day, and 1 orange table in AM every odd day. Do not take blue pills. Take with fat containing food, Brand Name: Trikafta, Generic name: elexacaftor/tezacaftor/i vacaftor, Specific therapeutic reason for requesting non-formulary or high cost medication: To prevent interruption of course of therapy initiated prior to admission (Home medication), Attending Provider: CURTIS CISNEROS V 1925 (Given - Provider: Jarred Melissa RN - Comment: given with food. 2 tablets on even days) 899 (Not Given - Provider: Roya Kapoor RN - Reason: Patient/family refused - Comment: requesting to take at night)2109 (Given - Provider: Brittany Virk RN) fluticasone (FLONASE) nasal spray 1 Calvin 1 Calvin, Each Nare, 2 TIMES DAILY, 180 doses, First dose on 05/12/22 at 2100, Last dose on 08/10/22 at 0900, OP SI Calvin by Each Nare route 2 times daily 2033 (Given - Provider: Mckenna Salas RN) 828 (Given - Provider: Roya Kapoor RN)2110 (Given - Provider: Brittany Virk RN) 919 (Given - Provider: Andreia Rose RN) fluticasone (FLOVENT HFA) 220 mcg inhaler 1 Puff 1 Puff, Inhalation, 2 TIMES DAILY, 180 doses, First dose on Fri05/12/22 at 2100, Last dose on Fri08/10/22 at 0900, Rinse mouth with water (without swallowing) or brush teeth after inhalation.OP SIG:Inhale 1 Puff into the lungs 2 times daily 2033 (Given - Provider: Mckenna Salas RN) 828 (Given - Provider: Roya Kapoor RN)2110 (Given - Provider: Brittany Virk RN) 918 (Given - Provider: Andreia Rose RN) Fluticasone-Salmeterol (ADVAIR) 500-50 mcg diskus inhaler 1 Puff 1 Puff, Inhalation, 2 TIMES DAILY, First dose (after last reorder) on Fri05/13/22 at 1230, Until Discontinued 1706 (Given - Provider: Roya Kapoor RN)2142 (Not Given - Provider: Brittany Virk RN - Reason: Other - Comment: Given early) 918 (Given - Provider: Andreia Rose RN) insulin detemir (LEVEMIR) injection 8 Units 8 Units (0.213 Units/kg/DAY), Subcutaneous, BEDTIME, 90 doses, First dose on Fri05/12/22 at 2100, Last dose on Fri08/09/22 at 2100, OP SIG:Inject 13 Units into the skin nightly at bedtime bedtime Indications: CFRD, Patient taking differently: Inject 8 Units into the skin nightly at bedtime bedtime Indications: CFRD 2030 (Given - Provider: Mckenna Salas RN) 2137 (Given - Provider: Brittany Virk RN) insulin lispro (HumaLOG) injection (Meals/Bedtime-Vial Calculator) 0-5 Units 0-5 Units (0-0.528 Units/kg/DAY), Subcutaneous, Before Meals & At Bedtime, 359 doses, First dose (after last modification) on 05/12/22 at 2100, Last dose on Fri08/10/22 at 1230, Calculated doses can be validated in this manner: (Current blood glucose - blood glucose target)/correction factor = Glucose Correction Dose. Carb intake/carb ratio = carbohydrate-based dose. Glucose correction dose + carbohydrate-based dose = Total Insulin dose to be administered. 2029 (Given - Provider: Mckenna Salas, OLEKSANDR) 0912 (Given - Provider: Roya Kapoor RN)1447 (Given - Provider: Roya Kapoor, OLEKSANDR)1930 (Given - Provider: Roya Kapoor RN) 0026 (Not Given - Provider: Brittany Virk RN - Reason: No meal/snack taken - Comment: Pt did not want glucose recheck at bedtime)0919 (Given - Provider: Andreia Rose RN)1317 (Given - Provider: Andreia Rose RN) insulin Lispro (HumaLOG) injection (COMPLETED) Subcutaneous, ONCE, 1 dose, On 05/12/22 at 1530, Administer 5 units now 1525 (Given - Provider: Marielena Javier RN) metoclopramide (REGLAN) injection 10 mg (COMPLETED) 10 mg (0.266 mg/kg/DOSE), Intravenous, ONCE, 1 dose, On 05/12/22 at 1345 1343 (Given - Provider: Magalie Kuhn, OLEKSANDR) MVW COMPLETE FORMULATION Capsule 2 Capsule 2 Capsule, Oral, DAILY, 90 doses, First dose on 05/12/22 at 1630, Last dose on Fri08/09/22 at 0900, OP SIG:Take 2 Capsules by mouth daily 1630 (Not Given - Provider: Roya Kapoor RN - Reason: Patient/family refused) 0900 (Not Given - Provider: Roya Kapoor RN - Reason: Patient/family refused) 0920 (Given - Provider: Andreia Rose RN) NaCl 0.9% IV (COMPLETED) 752 mL (20 ml/kg/DOSE 37.6 kg), Intravenous, ONCE, 1 dose, On 05/12/22 at 0930, Administer over 31 Minutes 1010 (New Bag - Provider: Lolis James, OLEKSANDR)1011 (Rate/Dose Change - Provider: Magalie Kuhn, OLEKSANDR)1058 (Rate/Dose Change - Provider: Magalie Kuhn, OLEKSANDR)1100 (Dose/Rate Verification - Provider: Magalie Kuhn, OLEKSANDR)1100 (Dose/Rate Verification - Provider: Roya Kapoor RN)1200 (Dose/Rate Verification - Provider: Roya Kapoor RN)1201 (Dose/Rate Verification - Provider: Roya Kapoor RN)1301 (Dose/Rate Verification - Provider: Roya Kapoor RN)1304 (Dose/Rate Verification - Provider: Roya Kapoor RN) NaCl 0.9% PosiFlush 2 mL 2 mL EVERY 8 HOURS (0.16 mL/kg/DAY), Intravenous, at 0-999 mL/hr, First dose on 05/12/22 at 1630, For 90 days 1630 (Not Given - Provider: Roya Kapoor RN - Reason: Running IV fluids) 0046 (Not Given - Provider: Mckenna Salas RN - Reason: Running IV fluids)0809 (Not Given - Provider: Roya Kapoor RN - Reason: Running IV fluids)1700 (Not Given - Provider: Roya Kapoor RN - Reason: Running IV fluids) 0047 (Not Given - Provider: Brittany Virk RN - Reason: Running IV fluids)0920 (Not Given - Provider: Andreia Rose RN - Reason: Running IV fluids) ondansetron (ZOFRAN-ODT) disintegrating tablet 4 mg (COMPLETED) 4 mg (0.106 mg/kg/DOSE), Oral, ONCE, 1 dose, On 05/12/22 at 0945 0935 (Given - Provider: Magalie Kuhn RN) pancrelipase (CREON) 86069-018652 units capsule 108,000 Units 108,000 Units (14,400 Units/kg/DAY), Oral, BEFORE MEALS AND 2 SNACKS, 450 doses, First dose on 05/12/22 at 1730, Last dose on 08/10/22 at 1500, Take with snacks, meals or at bedtime (with a snack). 1730 (Not Given - Provider: Roya Kapoor RN - Reason: No meal/snack taken)1925 (Given - Provider: Jarred Melissa RN) 0825 (Given - Provider: Roya Kapoor RN)1444 (Given - Provider: Roya Kapoor RN)1538 (Not Given - Provider: Roya Kapoor RN - Reason: No meal/snack taken)1840 (Given - Provider: Roya Kapoor RN)2145 (Not Given - Provider: Brittany Virk RN - Reason: No meal/snack taken) 0841 (Given - Provider: Andreia Rose RN)1221 (Given - Provider: Andreia Rose RN) phytonadione (MEPHYTON) tablet 5 mg 5 mg (0.133 mg/kg/DOSE), Oral, 3 TIMES WEEKLY (Once per day on Fri), 39 doses, First dose on Fri05/13/22 at 0900, Last dose on Fri08/09/22 at 0900, OP SIG:Take 1 Tab by mouth. Take 5mg on Friday, Friday and Friday 08 (Given - Provider: Roya Kapoor RN) polyethylene glycol (GLYCOLAX) packet 17 g 17 g (0.452 g/kg/DAY), Oral, DAILY, First dose on 05/12/22 at 1630, Until Discontinued, Nursing to dilute with 240 ml of fluid 1753 (Given - Provider: Roya Kapoor RN) 0900 (Not Given - Provider: Roya Kapoor RN - Reason: Patient/family refused) 0921 (Not Given - Provider: Andreia Rose RN - Reason: Patient/family refused) senna (SENOKOT) tablet 8.6 mg 8.6 mg (0.454 mg/kg/DAY), Oral, 2 TIMES DAILY, 180 doses, First dose on 05/12/22 at 2100, Last dose on Fri08/10/22 at 0900 2033 (Given - Provider: Mckenna Salas RN) 0900 (Not Given - Provider: Roya Kapoor RN - Reason: Patient/family refused)2108 (Given - Provider: Brittany Virk RN) 0921 (Not Given - Provider: Andreia Rose RN - Reason: Patient/family refused) Continuous Medication Order 05/12/2022 05/13/2022 05/14/2022 NaCl 0.9% IV CONTINUOUS, Intravenous, at 75 mL/hr, Starting on 05/12/22 at 1330, For 90 days 1341 (New Bag - Provider: Magalie Kuhn RN)1342 (Rate/Dose Change - Provider: Roya Kapoor RN)1343 (Rate/Dose Change - Provider: Roya Kapoor RN)1444 (Rate/Dose Change - Provider: Roya Kapoor RN)1500 (Paused - Provider: Roya Kapoor, OLEKSANDR)1500 (Rate/Dose Change - Provider: Roya Kapoor RN)1527 (Stopped - Provider: Roya Kapoor RN)1527 (Stopped - Provider: Roya Kapoor RN)1706 (New Bag - Provider: Roya Kapoor RN)1999 (Dose/Rate Verification - Provider: Roya Kapoor RN)2000 (Dose/Rate Verification - Provider: Mckenna Salas RN)210 (Dose/Rate Verification - Provider: Mckenna Salas RN)220 (Dose/Rate Verification - Provider: Mckenna Salas RN)2301 (Dose/Rate Verification - Provider: Mckenna Salas RN) 0001 (Dose/Rate Verification - Provider: Mckenna Salas RN)0101 (Dose/Rate Verification - Provider: Mckenna Salas RN)0201 (Dose/Rate Verification - Provider: Mckenna Salas RN)0301 (Dose/Rate Verification - Provider: Mckenna Salas RN)0401 (Dose/Rate Verification - Provider: Mckenna Salas RN)0501 (Dose/Rate Verification - Provider: Mckenna Salas RN)0506 (Rate/Dose Change - Provider: Mckenna Salas RN)0512 (Stopped - Provider: Mckenna Salas RN)0539 (New Bag - Provider: Mckenna Salas RN)0539 (Paused - Provider: Mckenna Salas RN)0543 (Restarted - Provider: Mckenna Salas RN)0601 (Dose/Rate Verification - Provider: Mckenna Salas RN)0701 (Dose/Rate Verification - Provider: Mckenna Salas RN)0727 (Handoff - Provider: Mckenna Salas RN)1400 (Dose/Rate Verification - Provider: Roya Kapoor RN)1401 (Dose/Rate Verification - Provider: Brittany Virk RN)1501 (Dose/Rate Verification - Provider: Brittany Virk RN)1601 (Dose/Rate Verification - Provider: Brittany Virk RN)1701 (Dose/Rate Verification - Provider: Brittany Virk RN)1801 (Dose/Rate Verification - Provider: Brtitany Virk RN)1838 (Stopped - Provider: Brittany Virk RN)1839 (New Bag - Provider: Roya Kapoor RN)1901 (Dose/Rate Verification - Provider: Brittany Virk RN)2000 (Dose/Rate Verification - Provider: Brittany Virk RN)210 (Dose/Rate Verification - Provider: Brittany Virk RN)220 (Dose/Rate Verification - Provider: Brittany Virk RN)230 (Dose/Rate Verification - Provider: Brittany Virk RN) 0001 (Dose/Rate Verification - Provider: Brittany Virk RN)0101 (Dose/Rate Verification - Provider: Brittany Virk RN)0201 (Dose/Rate Verification - Provider: Brittany Virk RN)0301 (Dose/Rate Verification - Provider: Brittany Virk RN)0401 (Dose/Rate Verification - Provider: Brittany Virk RN)0501 (Dose/Rate Verification - Provider: Brittany Virk RN)0552 (Paused - Provider: Brittany Virk RN)0556 (Restarted - Provider: Brittany Virk RN)0601 (Dose/Rate Verification - Provider: Brittany Virk RN)0610 (Stopped - Provider: Brittany Virk RN)0613 (Stopped - Provider: Brittany Virk RN)0632 (New Bag - Provider: Brittany Virk RN)0633 (Paused - Provider: Brittany Virk RN)0638 (Restarted - Provider: Brittany Virk RN)0644 (Dose/Rate Verification - Provider: Brittany Virk, OLEKSANDR)0701 (Dose/Rate Verification - Provider: Brittany Virk RN)0723 (Dose/Rate Verification - Provider: Brittany Virk RN)0800 (Dose/Rate Verification - Provider: Andreia Rose RN)0900 (Dose/Rate Verification - Provider: Andreia Rose RN)1000 (Dose/Rate Verification - Provider: Andreia Rose RN)1100 (Dose/Rate Verification - Provider: Andreia Rose RN)1200 (Dose/Rate Verification - Provider: Andreia Rose RN)1300 (Dose/Rate Verification - Provider: Andreia Rose RN)1400 (Dose/Rate Verification - Provider: Andreia Rose RN)1417 (Stopped - Provider: Andreia Rose RN) PRN Medication Order 05/12/2022 05/13/2022 05/14/2022 acetaminophen (TYLENOL) 325 MG tablet 650 mg 650 mg (17.2 mg/kg/DOSE), Oral, EVERY 6 HOURS PRN, Starting on Fri05/13/22 at 0807, Until Fri05/14/22 at 1711, Mild Pain = Pain Score 1-3, Moderate Pain = Pain Score 4-6 0827 (Given - Provider: Roya Kapoor RN)1721 (Given - Provider: Roya Kapoor RN) albuterol (PROAIR HFA;VENTOLIN HFA;PROVENTIL HFA) 108 (90 Base) MCG/ACT inhaler 2 Puff 2 Puff, Inhalation, EVERY 6 HOURS PRN, Starting on Fri05/12/22 at 2145, Until Fri05/14/22 at 1711, Wheezing, Shortness of Breath cetirizine (ZyrTEC) tablet 10 mg 10 mg (0.266 mg/kg/DOSE), Oral, DAILY PRN, Starting on Fri05/12/22 at 1624, Until Fri05/14/22 at 1711, Allergies, OP SIG:Take 1 Tab (10 mg) by mouth daily as needed for Allergies Dextrose 50 % solution 25 g 25 g (0.665 g/kg/DOSE), Intravenous, PRN, Starting on Fri05/12/22 at 1624, Until Fri05/14/22 at 1711, Administer over 3-5 Minutes, Other, for hypoglycemia (blood sugar less than 70) and patient not alert glucose 4gm chewable tablet 12 g 12 g (0.319 g/kg/DOSE), Oral, PRN, Starting on Fri05/12/22 at 1624, Until Fri05/14/22 at 1711, Low blood sugar NaCl 0.9 % 10 mL 10 mL PRN (0.266 ml/kg/DOSE), Intravenous, at 0-999 mL/hr, Line Care, For mixture of medications, Starting on Fri05/12/22 at 1624, For 90 days, For mixture of medications NaCl 0.9 % IV Flush bag 30 mL 30 mL PRN (0.798 ml/kg/DOSE), Intravenous, at 0-999 mL/hr, Flush IV line after medication IVPB bag if given., Starting on Fri05/12/22 at 1624, For 90 days, Flush IV line after medication IVPB bag if given. NaCl 0.9% PosiFlush 10 mL 10 mL PRN (0.266 ml/kg/DOSE), Intravenous, at 0-999 mL/hr, Line Care, Starting on Fri05/12/22 at 0923, For 90 days NaCl 0.9% PosiFlush 2 mL 2 mL PRN (0.0532 ml/kg/DOSE), Intravenous, at 0-999 mL/hr, Line Care, Starting on Fri05/12/22 at 0923, For 90 days NaCl 0.9% PosiFlush 2 mL 2 mL PRN (0.0532 ml/kg/DOSE), Intravenous, at 0-999 mL/hr, Line Care, Starting on Fri05/12/22 at 1624, For 90 days NaCl 0.9% PosiFlush 5 mL 5 mL PRN (0.133 ml/kg/DOSE), Intravenous, at 0-999 mL/hr, Line Care, Starting on Fri05/12/22 at 1624, For 90 days, Central Line. Oxygen See Flowsheet Row, PRN, Starting on Fri05/12/22 at 2142, Until Fri05/14/22 at 1711, Keep sats greater than or equal to 90% 2100 (Gas Start - Provider: Mckenna Salas RN - Comment: desat to 85% awake)2200 (Gas Rate/Dose Verify - Provider: Mckenna Salas RN)2300 (Gas Rate/Dose Verify - Provider: Mckenna Salas RN) 0000 (Gas Rate/Dose Verify - Provider: Mckenna Salas RN)0100 (Gas Rate/Dose Verify - Provider: Mckenna Salas RN)0200 (Gas Rate/Dose Verify - Provider: Mckenna Salas RN)0300 (Gas Rate/Dose Verify - Provider: Mckenna Salas RN)0305 (Gas Rate/Dose Verify - Provider: Mckenna Salas RN)0400 (Gas Rate/Dose Verify - Provider: Mckenna Salas RN)0435 (Gas Rate/Dose Verify - Provider: Mckenna Salas RN)0500 (Gas Rate/Dose Verify - Provider: Mckenna Salas RN)0600 (Gas Rate/Dose Verify - Provider: Mckenna Salas RN)0700 (Gas Rate/Dose Verify - Provider: Mckenna Salas RN)0825 (Gas Rate/Dose Verify - Provider: Roya Kapoor RN)1251 (Gas Rate/Dose Change - Provider: Roya Kapoor RN)1547 (Gas Stop - Provider: Roya Kapoor RN - Comment: 94% RA) sterile water injection 10 mL 10 mL (0.266 ml/kg/DOSE), Intravenous, PRN, Starting on 05/12/22 at 1624, Until Tu05/14/22 at 1711, For mixture of medications, For mixture of medications FOR RECORDS PERTAINING TO PATIENTS WHO ARE OR HAVE BEEN ENROLLED IN A CHEMICAL DEPENDENCY/SUBSTANCEABUSE PROGRAM, SOME INFORMATION MAY BE OMITTED. This clinical summary was aggregated from multiple sources. Caution should be exercised in using it in the provision of clinical care. This summary normalizes information from multiple sources, and as a consequence, information in this document may materially change the coding, format and clinical context of patient data. In addition, data may be omitted in some cases. CLINICAL DECISIONS SHOULD BE BASED ON THE PRIMARY CLINICAL RECORDS. [employer] provides no warranty or guarantee of the accuracy or completeness of information in this document.
[2024-08-31] MEDS: 0.9% Normal Saline (1000mL) 1,000 ML 150 ML IV (21:55)
[2024-08-31] MEDS: Meropenem 1 GM in 0.9% Normal Saline (100mL MB+) 100 ML IV (22:37)
[2024-08-31] MEDS: Insulin Glargine-YFGN 100 UNIT/ML Pen 8 UNIT SC (22:38)
[2024-08-31] MEDS: Pantoprazole Sodium 40 MG Tablet PO (22:38)
--- NOTE | 2024-08-31 22:51 | PCM.RX.CS ---
Consult Antibiotic Management Pharmacy has been consulted to manage selected antibiotic: Vancomycin Type of Intervention Type of Consult: New start Suspected Infection Suspected Infection: Pneumonia Labs Labs: Sodium 134 mmol/L (136-145) L 08/31/24 17:03 Potassium 5.4 mmol/L (3.5-5.1) H 08/31/24 17:03 Chloride 113 mmol/L (98-107) H 08/31/24 17:03 Carbon Dioxide 20.0 mmol/L (21.0-32.0) L 08/31/24 17:03 Anion Gap 1 (5-15) L 08/31/24 17:03 BUN 12 mg/dL (7-18) 08/31/24 17:03 Creatinine 0.95 mg/dL (0.70-1.30) 08/31/24 17:03 Est GFR (MDRD) Af Amer 119 mL/min (>60) 08/31/24 17:03 Est GFR (MDRD) Non-Af 98 mL/min (>60) 08/31/24 17:03 BUN/Creatinine Ratio 12.6 RATIO (10-20) 08/31/24 17:03 Glucose 269 mg/dL (74-106) H 08/31/24 17:03 Random Vancomycin 18.8 ug/mL (0.0-15.0) H 08/31/24 14:40 Dosing Weight Weight used for dosin.8 kg Estimated Creatinine Clearance Estimated Creatinine Clearance: 65 Goal Trough Goal Trough: 15-20 mcg/mL Pharmacy Plan for Drug Dosing Pharmacy Plan for Drug Dosing: Patient currently on vancomycin IV at home. Dose of 300mg q12h. Random vancomycin level of 18.8 was drawn at [facility] 08/31 @1440. Will continue vanco therapy at 500mg q12h starting 09/01/24, and will draw a trough level prior to fourth dose. Pharmacy Service will continue to monitor and adjust dosing as required. Follow-Up Labs Follow-Up Labs: Trough: Vancomycin Date/Time Labs Ordered Labs to be done on [date and time ordered]: 09/02/24 @1730
[2024-09-01] VITALS (15 sets, daily range): BP systolic 130–179; BP diastolic 90–114; PULSE 89–125; RESP 16–24; TEMP 36.6–37.3; O2SAT 90–94
[2024-09-01 00:23] LABS: Bedside Glucose 128 mg/dL (74-106)
[2024-09-01] MEDS: Alteplase 2 MG/2 ML Vial IV (01:27)
[2024-09-01] MEDS: hydrALAZINE 20 MG/ML Vial 10 MG IV ×2 (02:59→10:36)
[2024-09-01] MEDS: 0.9% Saline Lock 10 ML Syringe IV ×2 (03:00→10:22)
[2024-09-01] MEDS: DiphenhydrAMINE 50 MG/ML Syringe IV ×2 (05:39→17:38)
[2024-09-01] MEDS: Vancomycin IV 500 MG/100 ML BAG 100 MG IV ×2 (05:39→17:28)
[2024-09-01] MEDS: Ipratropium/Albuterol Sulfate 3 ML AMPUL.NEB INHALATION ×3 (05:53→19:05)
--- NOTE | 2024-09-01 05:55 | EKG12_ITS ---
Test Reason : HIGH K Blood Pressure : / mmHG Vent. Rate : 086 BPM Atrial Rate : 086 BPM P-R Int : 168 ms QRS Dur : 084 ms QT Int : 366 ms P-R-T Axes : 079 086 084 degrees QTc Int : 437 ms Normal sinus rhythm Normal ECG Confirmed by CORDELL RUEDA, STEVEN ([id number]), managing editor BE FARAH ([id number]) on 09/02/2024 1:20:05 PM Referred By: Confirmed By:STEVEN LANDA MD
[2024-09-01 07:02] LABS: Bedside Glucose 124 mg/dL (74-106)
[2024-09-01 07:34] LABS: Anion Gap 3 (5-15); BUN 12 mg/dL (7-18); BUN/Creat Ratio 14.4 RATIO (10-20); Calcium,Total 7.8 mg/dL (8.5-10.1); Chloride 114 mmol/L (98-107); Creatinine, Serum 0.84 mg/dL (0.70-1.30); EST Glomerular Filtration Rate 114 mL/min (>60); Est Glom Filt Rate - Afr Amer 138 mL/min (>60); Estimated Creatinine Clearance 86.15 ml/min; Glucose 119 mg/dL (74-106); Potassium 5.4 mmol/L (3.5-5.1); Sodium Level 138 mmol/L (136-145)
[2024-09-01] MEDS: Sodium Polystyrene Sulfonate 15 GM/60 ML UDC 30 GM PO (09:01)
[2024-09-01] MEDS: Carvedilol 25 MG Tablet PO ×2 (09:05→17:26)
[2024-09-01] MEDS: Pantoprazole Sodium 40 MG Tablet PO ×2 (09:05→21:54)
[2024-09-01] MEDS: Creon 12,000 unit DR CapSULE 9 CAP PO ×2 (10:17→17:26)
[2024-09-01] MEDS: Meropenem 1 GM in 0.9% Normal Saline (100mL MB+) 100 ML IV ×2 (10:21→21:53)
--- NOTE | 2024-09-01 12:25 | PN_ITS ---
Subjective Subjective Patient seen and examined. He had no active complaints. review of systems is otherwise negative. His potassium is elevated today again at 5.4. His BP is also elevated today. He has otherwise remained hemodynamically stable. Objective Data Objective Data Vital Signs: Vital Signs Temp Pulse Resp BP Pulse Ox O2 Del Method 98.8 F 97 16 158/109 H 92 Room Air 09/01/24 08:55 09/01/24 10:36 09/01/24 08:55 09/01/24 11:00 09/01/24 08:55 09/01/24 08:55 Oxygen Delivery Method Room Air Weight: 105 lb 6.095 oz Body Mass Index (BMI) 19.3 Intake & Output: Intake and Output for Last 24 Hours 08/30/24 08/31/24 09/01/24 23:59 23:59 23:59 Intake Total 1530 / 1530 1200 / 1200 Balance 1530 / 1530 1200 / 1200 Lab / Micro Data 08/31/24 14:00 09/01/24 06:22 Labs: Laboratory Results - last 24 hr 08/31/24 14:00: WBC 6.6, RBC 3.09 L, Hgb 9.1 L, Hct 28.7 L, MCV 92.9, MCH 29.4, MCHC 31.7 L, RDW Std Deviation 62.3 H, RDW Coeff of Erika 18.3 H, Plt Count 226, MPV 9.2, Immature Gran % (Auto) 0.300, Neut % (Auto) 59.8, Lymph % (Auto) 21.9, [place] % (Auto) 9.4, Eos % (Auto) 7.1 H, Baso % (Auto) 1.5 H, Absolute Neuts (auto) 4.0, Absolute Lymphs (auto) 1.45, Nucleated RBC % 0, Sodium 139, P otassium 5.7 H, Chloride 115 H, Carbon Dioxide 24.0, Anion Gap 0 L, BUN 13, Creatinine 1.03, Estim Creat Clear Calc 60.27, Est GFR (MDRD) Af Amer 108, Est GFR (MDRD) Non-Af 90, BUN/Creatinine Ratio 12.6, Glucose 151 H, Calcium 7.9 L, Total Bilirubin 0.30, Direct Bilirubin 0.17, AST 50 H, ALT 29, Alkaline Phosphatase 819 H, Total Protein 7.0, Albumin 1.5 L, Globulin 5.5 H, A lbumin/Globulin Ratio 0.3 L 08/31/24 14:40: Random Vancomycin 18.8 H 08/31/24 16:32: POC Glucose 25 L* 08/31/24 16:57: POC Glucose 176 H 08/31/24 17:03: Sodium 134 L, Potassium 5.4 H, Chloride 113 H, Carbon Dioxide 20.0 L, Anion Gap 1 L, BUN 12, Creatinine 0.95, Estim Creat Clear Calc 65.34, Est GFR (MDRD) Af Amer 119, Est GFR (MDRD) Non-Af 98, BUN/Creatinine Ratio 12.6, Glucose 269 H, Calcium 8.7 08/31/24 20:41: POC Glucose 128 H 09/01/24 06:22: Sodium 138, Potassium 5.4 H, Chloride 114 H, Carbon Dioxide 22.0, Anion Gap 3 L, BUN 12, Creatinine 0.84, Estim Creat Clear Calc 86.15, Est GFR (MDRD) Af Amer 138, Est GFR (MDRD) Non-Af 114, BUN/Creatinine Ratio 14.4, G lucose 119 H, Calcium 7.8 L 09/01/24 06:43: POC Glucose 124 H Physical Exam Const alert, oriented x3, no apparent distress and well nourished General Appearance: cooperative and well developed HEENT normocephalic, head/scalp atraumatic and moist oral mucous membranes Eyes PERRL and EOMs intact bilaterally Neck no lymphadenopathy and supple Lymph Lymphatic: no lymphadenopathy noted Resp normal respiratory effort, normal air movement and clear to auscultation bilaterally Cardio regular rate, regular rhythm, S1 normal heart sound, S2 normal heart sound and no murmurs Peripheral Pulses: pulses 2+ throughout GI normal to inspection, nondistended, normoactive bowel sounds, soft to palpation, non-tender and non-distended Extremity normal capillary refill, no clubbing, cyanosis or edema and no calf tenderness General Extremity: no tenderness to palpation of joints or extremities Skin General Skin Exam: no breakdown Neuro CN's II-XII intact bilaterally, no focal motor deficits, no sensory deficits noted and deep tendon reflexes 2+ bilaterally Motor Exam: strength 5/5 throughout and general weakness Psych thought process normal, cooperative and affect normal Appearance: appropriate Assessment & Plan Assessment/Plan (1) Acute hyperkalemia: (2) Cystic fibrosis: (3) Type 1 diabetes mellitus: PLAN: Plan #Hyperkalemia * lance is known to have cystic fibrosis. However, cystic fibrosis is usually associated with hypokalemia as well as hyponatremia and hypochloremia and not hyperkalemia. * He did receive Kayexalate yesterday. Potassium is still elevated at 5.4 today. Will give another dose of 30 gram of Kayexalate. * He denies taking a diet high in potassium and denies taking bananas, lots of carrots and sweet potatoes and any leafy greens and high quantities than usual. * He states this hyperkalemia is not new for him. If it persist will consult nephrology to see if they can figure out an etiology. * Trend potassium * #Recurrent pneumonia in the setting of cystic fibrosis * Was recently diagnosed with pneumonia and has been on vancomycin and meropenem for about 2 weeks. Follows up at [facility]. Has a PICC line in place. * Plan was for him to be on the antibiotics for total of 3 to 4 weeks. Will continue IV vancomycin and meropenem. #Type 1 diabetes mellitus with hyperglycemia * On Lantus 8 units nightly. Insulin sliding scale. Accu-Cheks ACHS. * #Hypertension: * On Coreg. IV hydralazine as needed. * Blood pressure was elevated on admission with systolic in the 190s to 200s. #Chronic pancreatic insufficiency: On Creon replacement Nicotine dependence: Counseled to quit. Nicotine patch GERD: On PPI DVT prophylaxis: Low risk. Encourage ambulation. Charges/Coding Visit Charges Inpatient E&M: 84401 Subs Hosp L2
[2024-09-01] MEDS: cloNIDine HCl 0.2 MG Tablet PO (13:49)
[2024-09-01] MEDS: Metoprolol Tartrate 5 MG/5 ML Vial IV (16:10)
[2024-09-01 16:18] LABS: Anion Gap 1 (5-15); BUN 12 mg/dL (7-18); BUN/Creat Ratio 11.1 RATIO (10-20); Chloride 110 mmol/L (98-107); Creatinine, Serum 1.08 mg/dL (0.70-1.30); EST Glomerular Filtration Rate 85 mL/min (>60); Est Glom Filt Rate - Afr Amer 103 mL/min (>60); Glucose 209 mg/dL (74-106); Potassium 4.9 mmol/L (3.5-5.1); Sodium Level 138 mmol/L (136-145)
[2024-09-01 17:19] LABS: D-Dimer Quantitative (DVT/PE) 1.67 FEU/ug/m (0.27-0.49)
[2024-09-01] MEDS: Insulin Lispro 100 UNIT/ML INSULN.PEN SC (17:39)
--- NOTE | 2024-09-01 17:41 | CT_ITS ---
STUDY: CTA CHEST REASON FOR EXAM: Male, 29 years old. Possible PE, history of cystic fibrosis RADIATION DOSAGE (If Supplied By Facility): CTDIvol = ( 3.62 ) mGy, DLP = ( 176.30 ) mGycm TECHNIQUE: The examination was performed with the intravenous administration of 75mL Isovue-370. Post-processing of the angiographic images was performed, with multiplanar reformation and 3D reconstruction. Individualized dose optimization techniques were used for this CT. COMPARISON: None. FINDINGS: Suboptimal enhancement of the pulmonary arteries limits evaluation. No large or central filling defects identified. Smaller or more distal filling defects cannot be reliably excluded. Normal thoracic aorta and visualized great vessels. There is no demonstrated aortic dissection. Normal heart and pericardium. Shotty mediastinal lymph nodes. Bilateral hilar adenopathy. Extensive bilateral bronchiectasis. Bilateral lower lobe infiltrates with extensive tree in bud formations. No consolidations. No pleural effusions. Normal chest wall structures. Normal osseous structures. No acute findings in the upper abdomen. Severe pancreatic atrophy. Nodular hepatic margins. Splenomegaly. CT/CTA Chest W/WO Contrast IMPRESSION: Limited examination due to suboptimal enhancement of the pulmonary arteries. No large or central pulmonary emboli identified. Smaller or more distal PE cannot be reliably excluded. Pulmonary changes consistent with cystic fibrosis with superimposed infiltrates at the bilateral lower lobes, probable pneumonia. Electronically Signed: Hang Tillman MD at 19:59 EDT ,
[2024-09-01 18:28] LABS: Bedside Glucose 189 mg/dL (74-106)
--- NOTE | 2024-09-01 20:36 | PCM.HOSP.N ---
Hospitalist Note CTPA resulted with: Limited examination due to suboptimal enhancement of the pulmonary arteries. No large or central pulmonary emboli identified. Smaller or more distal PE cannot be reliably excluded. Pulmonary changes consistent with cystic fibrosis with superimposed infiltrates at the bilateral lower lobes, probable pneumonia. Patient is already on BSA therapies.
[2024-09-01] MEDS: Insulin Glargine-YFGN 100 UNIT/ML Pen 8 UNIT SC (22:01)
[2024-09-01 22:23] LABS: Bedside Glucose 161 mg/dL (74-106)
[2024-09-02 02:08] VITALS: PULSE 90; RESP 16
[2024-09-02] MEDS: Ipratropium/Albuterol Sulfate 3 ML AMPUL.NEB INHALATION ×2 (02:08→07:37)
[2024-09-02 03:00] VITALS: BP 158/102; PULSE 92; RESP 18; TEMP 36.3; O2SAT 92
[2024-09-02] MEDS: DiphenhydrAMINE 50 MG/ML Syringe IV (06:24)
[2024-09-02] MEDS: Vancomycin IV 500 MG/100 ML BAG 100 MG IV (06:24)
[2024-09-02 06:28] VITALS: BP 171/102; PULSE 92
[2024-09-02] MEDS: hydrALAZINE 20 MG/ML Vial 10 MG IV (06:28)
[2024-09-02 06:56] LABS: Bedside Glucose 112 mg/dL (74-106)
[2024-09-02 07:31] LABS: Bedside Glucose 139 mg/dL (74-106)
[2024-09-02 07:39] VITALS: PULSE 92; RESP 18; O2SAT 94
[2024-09-02 08:04] VITALS: BP 154/98; PULSE 95; RESP 14; TEMP 36.6; O2SAT 93
[2024-09-02] MEDS: Carvedilol 25 MG Tablet PO (08:06)
[2024-09-02] MEDS: Pantoprazole Sodium 40 MG Tablet PO (08:06)
[2024-09-02] MEDS: Creon 12,000 unit DR CapSULE 9 CAP PO (08:07)
[2024-09-02 08:14] LABS: Anion Gap 2 (5-15); BUN 19 mg/dL (7-18); BUN/Creat Ratio 17.4 RATIO (10-20); Calcium,Total 7.7 mg/dL (8.5-10.1); Chloride 108 mmol/L (98-107); Creatinine, Serum 1.09 mg/dL (0.70-1.30); EST Glomerular Filtration Rate 84 mL/min (>60); Est Glom Filt Rate - Afr Amer 101 mL/min (>60); Estimated Creatinine Clearance 66.39 ml/min; Glucose 102 mg/dL (74-106); Potassium 4.7 mmol/L (3.5-5.1); Sodium Level 137 mmol/L (136-145)
[2024-09-02] MEDS: Meropenem 1 GM in 0.9% Normal Saline (100mL MB+) 100 ML IV (09:34)
--- NOTE | 2024-09-02 10:14 | DS.PCM_ITS ---
Providers Date of Admission: 09/01/24 Date of Discharge: 09/02/24 Primary Care Physician: No Primary Care Phys Reason For Visit: HYPERKALEMIA WITH EKG CHANGES Diagnosis Discharge Diagnosis (1) Acute hyperkalemia: Status: Acute Code(s): E87.5 - Hyperkalemia (2) Cystic fibrosis: Status: Chronic Code(s): E84.9 - Cystic fibrosis, unspecified (3) Type 1 diabetes mellitus: Status: Chronic Code(s): E10.9 - Type 1 diabetes mellitus without complications Plan #Hyperkalemia * lance is known to have cystic fibrosis. However, cystic fibrosis is usually associated with hypokalemia as well as hyponatremia and hypochloremia and not hyperkalemia. * He did receive Kayexalate yesterday. Potassium is still elevated at 5.4 today. Will give another dose of 30 gram of Kayexalate. * He denies taking a diet high in potassium and denies taking bananas, lots of carrots and sweet potatoes and any leafy greens and high quantities than usual. * He states this hyperkalemia is not new for him. If it persist will consult nephrology to see if they can figure out an etiology. * Trend potassium * #Recurrent pneumonia in the setting of cystic fibrosis * Was recently diagnosed with pneumonia and has been on vancomycin and meropenem for about 2 weeks. Follows up at [facility]. Has a PICC line in place. * Plan was for him to be on the antibiotics for total of 3 to 4 weeks. Will continue IV vancomycin and meropenem. #Type 1 diabetes mellitus with hyperglycemia * On Lantus 8 units nightly. Insulin sliding scale. Accu-Cheks ACHS. * #Hypertension: * On Coreg. IV hydralazine as needed. * Blood pressure was elevated on admission with systolic in the 190s to 200s. #Chronic pancreatic insufficiency: On Creon replacement Nicotine dependence: Counseled to quit. Nicotine patch GERD: On PPI DVT prophylaxis: Low risk. Encourage ambulation. Medications at Discharge Home Medications elexacaftor 100 mg-tezacaf 50mg-ivacaf 75mg(d)/ivacaf 150mg(n) tablets 2 ea PO DAILY CF 11/14/19 [id number] 36,000-114,000-180,000 unit capsule,delay rel 2 - 3 cap PO TIDCM CF 11/14/19 insulin glargine 100 unit/mL (3 mL) subcutaneous pen 8 unit SQ QHS DM 07/04/20 insulin lispro 100 unit/mL subcutaneous pen See Protocol SQ TIDCM diabetes 07/04/20 tobramycin with nebulizer 300 mg/5 mL solution for nebulization 300 mg IH BID SOB 07/04/20 albuterol sulfate 90 mcg/actuation aerosol inhaler (Ventolin HFA) 2 puff inhalation Q4H PRN PRN wheezing 08/31/24 blood sugar diagnostic ([employer] test strips) 08/31/24 blood-glucose sensor (Subtextual G7 Sensor device) 08/31/24 carvedilol 25 mg tablet 25 mg PO BID heart/ blood pressure 08/31/24 diphenhydramine HCl 50 mg/mL injection solution 50 mg IV Q12H vancomycin sensitivity 08/31/24 dornase christi 1 mg/mL solution for inhalation (Pulmozyme) 2.5 mg inhalation DAILY breathing 08/31/24 ipratropium 0.5 mg-albuterol 3 mg (2.5 mg base)/3 mL nebulization soln 3 ml inhalation Q4H PRN PRN wheezing 08/31/24 meropenem 1 gram intravenous solution 1 g IV Q12H infection 08/31/24 pantoprazole 40 mg tablet,delayed release 40 mg PO BID GERD 08/31/24 polyethylene glycol 3350 17 gram/dose oral powder 17 g PO DAILY PRN constipation 08/31/24 sodium chloride 0.9 % 1 ea IV Q12H PRN flush after abx 08/31/24 vancomycin 500 mg intravenous solution 300 mg PO Q12H infection 08/31/24 Hospital Course Operations
--- NOTE | 2024-09-02 10:14 | PCM.DC.SUM ---
Providers Date of Admission: 09/01/24 Date of Discharge: 09/02/24 Primary Care Physician: No Primary Care Phys Reason For Visit: HYPERKALEMIA WITH EKG CHANGES Diagnosis Discharge Diagnosis (1) Acute hyperkalemia: Status: Acute Code(s): E87.5 - Hyperkalemia (2) Cystic fibrosis: Status: Chronic Code(s): E84.9 - Cystic fibrosis, unspecified (3) Type 1 diabetes mellitus: Status: Chronic Code(s): E10.9 - Type 1 diabetes mellitus without complications Plan #Hyperkalemia lance is known to have cystic fibrosis. However, cystic fibrosis is usually associated with hypokalemia as well as hyponatremia and hypochloremia and not hyperkalemia. He did receive Kayexalate yesterday. Potassium is still elevated at 5.4 today. Will give another dose of 30 gram of Kayexalate. He denies taking a diet high in potassium and denies taking bananas, lots of carrots and sweet potatoes and any leafy greens and high quantities than usual. He states this hyperkalemia is not new for him. If it persist will consult nephrology to see if they can figure out an etiology. Trend potassium #Recurrent pneumonia in the setting of cystic fibrosis Was recently diagnosed with pneumonia and has been on vancomycin and meropenem for about 2 weeks. Follows up at [facility]. Has a PICC line in place. Plan was for him to be on the antibiotics for total of 3 to 4 weeks. Will continue IV vancomycin and meropenem. #Type 1 diabetes mellitus with hyperglycemia On Lantus 8 units nightly. Insulin sliding scale. Accu-Cheks ACHS. #Hypertension: On Coreg. IV hydralazine as needed. Blood pressure was elevated on admission with systolic in the 190s to 200s. #Chronic pancreatic insufficiency: On Creon replacement Nicotine dependence: Counseled to quit. Nicotine patch GERD: On PPI DVT prophylaxis: Low risk. Encourage ambulation. Medications at Discharge Home Medications elexacaftor 100 mg-tezacaf 50mg-ivacaf 75mg(d)/ivacaf 150mg(n) tablets 2 ea PO DAILY CF 11/14/19 [id number] 36,000-114,000-180,000 unit capsule,delay rel 2 - 3 cap PO TIDCM CF 11/14/19 insulin glargine 100 unit/mL (3 mL) subcutaneous pen 8 unit SQ QHS DM 07/04/20 insulin lispro 100 unit/mL subcutaneous pen See Protocol SQ TIDCM diabetes 07/04/20 tobramycin with nebulizer 300 mg/5 mL solution for nebulization 300 mg IH BID SOB 07/04/20 albuterol sulfate 90 mcg/actuation aerosol inhaler (Ventolin HFA) 2 puff inhalation Q4H PRN PRN wheezing 08/31/24 blood sugar diagnostic (OneTouch Verio test strips) 08/31/24 blood-glucose sensor ([employer] G7 Sensor device) 08/31/24 carvedilol 25 mg tablet 25 mg PO BID heart/ blood pressure 08/31/24 diphenhydramine HCl 50 mg/mL injection solution 50 mg IV Q12H vancomycin sensitivity 08/31/24 dornase christi 1 mg/mL solution for inhalation (Pulmozyme) 2.5 mg inhalation DAILY breathing 08/31/24 ipratropium 0.5 mg-albuterol 3 mg (2.5 mg base)/3 mL nebulization soln 3 ml inhalation Q4H PRN PRN wheezing 08/31/24 meropenem 1 gram intravenous solution 1 g IV Q12H infection 08/31/24 pantoprazole 40 mg tablet,delayed release 40 mg PO BID GERD 08/31/24 polyethylene glycol 3350 17 gram/dose oral powder 17 g PO DAILY PRN constipation 08/31/24 sodium chloride 0.9 % 1 ea IV Q12H PRN flush after abx 08/31/24 vancomycin 500 mg intravenous solution 300 mg PO Q12H infection 08/31/24 Hospital Course Operations None Procedures None Summary of Care Provided Minutes Spent on Discharge: 45 Hospital Course: Patient is a 29-year-old male with a past medical history as outlined including cystic fibrosis who was admitted through the ED on 08/31/2024 for hyperkalemia. He usually followed up at [facility] for his cystic fibrosis and was being managed for recurrent pneumonia. He was on IV vancomycin and meropenem at home via PICC line. His blood work was done as routine surveillance for him being on the antibiotics and potassium was noted to be elevated. Potassium was 5.7 so he was told to come into the ED. Repeat potassium was 5.7 in the ED. EKG showed peaked T waves but no other hyperkalemic changes. He was treated with the potassium depleting cocktail and given Kayexalate. He was admitted to be managed for hyperkalemia. Patient denied eating any diet high in potassium and was not on any potassium sparing medications or supplements. He was given Kayexalate. His potassium trended down and was 4.7 on day of discharge. Patient was felt well and was discharged home on 09/02/2024. Of note hospital course was complicated by tachycardia which patient said was not new for him and was often present when he was in the hospital. D-dimer was elevated but CT of the chest showed no evidence of PE and showed pulmonary changes consistent with cystic fibrosis with superimposed infiltrates of the bilateral lower lobes due to probable pneumonia. His blood pressure had been elevated while she was in the hospital. Patient was on carvedilol 25 mg twice daily and he was continued on this. He was discharged on 09/02/2024 and is to follow-up with his primary care doctor and with the cystic fibrosis team at [facility] [place]. He was counseled to get his blood work checked within 2 to 3 days after discharge to monitor his potassium levels. Patient seen and examined prior to discharge. He felt well and had no active complaints. He had an uneventful night and review of systems otherwise negative. Labs and vitals reviewed. Home medication reviewed and reconciled. Physical Exam Const alert, oriented x3, no apparent distress and well nourished General Appearance: cooperative, comfortable, well kempt and well developed Orientation / Consciousness: awake HEENT normocephalic, head/scalp atraumatic, hearing grossly normal bilaterally, nasal mucous membranes and turbinates normal and moist oral mucous membranes Mouth: oral and palatal mucosa normal Eyes PERRL, EOMs intact bilaterally and conjunctivae normal Neck full ROM, no lymphadenopathy and supple Lymph Lymphatic: no lymphadenopathy noted Chest inspection of chest normal Resp no retractions and no use of accessory muscles Resp Narrative: Mildly diminished breath sounds bibasilarly. Few crackles. On room air. Cardio regular rate, regular rhythm, S1 normal heart sound, S2 normal heart sound, no murmurs and peripheral pulses 2+ throughout Peripheral Pulses: pulses 2+ throughout GI normal to inspection, nondistended, normoactive bowel sounds, soft to palpation, non-tender and non-distended Back/Spine normal ROM Extremity normal to inspection, full ROM, normal capillary refill, no clubbing, cyanosis or edema, no calf tenderness and no pedal edema General Extremity: no tenderness to palpation of joints or extremities Skin no rashes or lesions noted General Skin Exam: no breakdown Neuro CN's II-XII intact bilaterally, moves all extremities, no focal motor deficits, no sensory deficits noted and deep tendon reflexes 2+ bilaterally Speech: speech normal Motor Exam: strength 5/5 throughout and general weakness Psych mental status grossly normal, thought process normal, cooperative and affect normal Appearance: appropriate Weight / BMI Weight Weight: 105 lb 6.095 oz Body Mass Index (BMI) 19.3 ABG / Lab / Microbiology Data 08/31/24 14:00 09/02/24 07:03 Laboratory: Laboratory Results - last 24 hr 09/01/24 12:12: POC Glucose 139 H 09/01/24 15:50: Sodium 138, Potassium 4.9, Chloride 110 H, Carbon Dioxide 27.0, Anion Gap 1 L, BUN 12, Creatinine 1.08, Estim Creat Clear Calc 67.00, Est GFR (MDRD) Af Amer 103, Est GFR (MDRD) Non-Af 85, BUN/Creatinine Ratio 11.1, Glucose 209 H, Calcium 8.0 L 09/01/24 16:13: POC Glucose 189 H 09/01/24 16:18: D-Dimer Quant (PE/DVT) 1.67 H* 09/01/24 21:56: POC Glucose 161 H 09/02/24 06:13: POC Glucose 112 H 09/02/24 07:03: Sodium 137, Potassium 4.7, Chloride 108 H, Carbon Dioxide 27.0, Anion Gap 2 L, BUN 19 H, Creatinine 1.09, Estim Creat Clear Calc 66.39, Est GFR (MDRD) Af Amer 101, Est GFR (MDRD) Non-Af 84, BUN/Creatinine Ratio 17.4, Glucose 102, Calcium 7.7 L Radiography Diagnostic Testing: Radiology Impression Chest CTA 09/01/24 17:41 IMPRESSION: Limited examination due to suboptimal enhancement of the pulmonary arteries. No large or central pulmonary emboli identified. Smaller or more distal PE cannot be reliably excluded. Pulmonary changes consistent with cystic fibrosis with superimposed infiltrates at the bilateral lower lobes, probable pneumonia. Electronically Signed: Hang Tillman MD at 19:59 EDT Reading Location ID and State: [facility] / [place] Tel , Service support , D/C Instructions Discharge Diet: Low fat / Low cholesterol Discharge Activity: Return to Normal Activity Weight Bearing Status: Weight bearing as tolerated Call your doctor if you observe: Fever of 101 or Higher, Shortness of breath, Dizziness, Swelling in the ankles and Chest pain Meaningful Use Info Meaningful Use Meaningful Use Diagnoses (Choose all that apply): None applicable Ischemic Stroke Statin Dosing Therapy Reference: STATIN DOSE THERAPY REFERENCE: * Patients > 75 years receive moderate or high dose statin therapy. * Patients 75 years or YOUNGER should receive HIGH intensity statin dose unless contraindicated. You will be required to document reason for non-treatment if statin daily dose does not meet guidelines. HIGH DOSE STATIN THERAPY DAILY Atorvastatin > than or = to 40 mg Rosuvastatin > than or = to 20 mg Amlodipine + Atorvastatin > than or = to 2.5/40 mg Ezetimibe + Simvastatin 10/80 mg Simvastatin 80mg Discharge Plan Admission Admit Date/Time: 09/01/24 14:44 Primary Reason for Your Visit: hyperkalemia Attending Provider: Anahi Wilder Primary Care Provider: Care Physician,No Primary Consulting Providers: Niko Cook Instructions Patient Instructions: Hyperkalemia Dc, Hyperkalemia Ch Dc Additional Instructions / Restrictions: see PCP to get repeat BMP within 2-3 days to monitor potassium levels Discharge Orders/Prescriptions Prescriptions: Continued hxnzvk-nsikdxjo-kxygzjz 1 EACH capsule,delayed release(DR/EC) 2 - 3 cap PO TIDCM Rx Instructions: TAKE 3 CAPS WITH MEALS AND 2 CAPS WITH SNACKS [id number]-ydnjikvzny-ycqmses 1 EACH tablets, sequential 2 ea PO DAILY Patient Comments: PT STATES ONLY TAKES THE 2 MORNING TABS AND SKIPS THE EVENING DOSE. tobramycin with nebulizer 300 MG/5 ML solution for nebulization 300 mg IH BID insulin lispro 100 UNIT/ML insulin pen See Protocol SQ TIDCM Protocol: 2. Sliding Scale Insulin Low-Med Dosing Condition: 150-209 mg/dl = 1 unit Condition: 210-269 mg/dl = 2 units Condition: 270-329 mg/dl = 3 units Condition: 330-389 mg/dl = 4 units Condition: 390-449 mg/dl = 5 units Condition: Greater than 449 call physician Protocol Text: - Use for Total Daily Dose of Insulin 28-36 units - Average size patients LOW MEDIUM DOSING ALGORITHM Patient Comments: carb scale per pt insulin glargine 100 UNIT/ML insulin pen 8 unit SQ QHS carvedilol 25 mg tablet 25 mg PO BID (DME) OneTouch Verio test strips Strip 1 strip MISCELLANEOUS TID diphenhydramine HCl 50 mg/mL solution 50 mg IV Q12H Patient Comments: Red romel syndrome albuterol sulfate [Ventolin HFA] 90 mcg/actuation HFA aerosol inhaler 2 puff INHALATION Q4H PRN PRN (Reason: wheezing) (DME) Dexcom G7 Sensor Device MISCELLANEOUS Patient Comments: [NO ORIGINAL SIG] Pulmozyme 1 mg/mL solution 2.5 mg inhalation DAILY ipratropium-albuterol 0.5 mg-3 mg(2.5 mg base)/3 mL solution for nebulization 3 ml inhalation Q4H PRN PRN (Reason: wheezing) meropenem 1 gram recon soln 1 g IV Q12H pantoprazole 40 mg tablet,delayed release (DR/EC) 40 mg PO BID sodium chloride 0.9 % Parenteral Solution 1 ea IV Q12H PRN polyethylene glycol 3350 17 gram/dose powder 17 g PO DAILY PRN (Reason: constipation) vancomycin 500 mg recon soln 300 mg PO Q12H Patient Comments: per pt bottle, 300mg q12 hours Referrals / Follow Up: Lenora Sutton DO [Non-Staff] - Within 1 Week Care Physician,No Primary [Primary Care Provider] - Disposition Disposition (needs filled in before D/C Order can be placed): Home, Self Care Charges/Coding Visit Charges Inpatient E&M: 06090 Disch Hosp >30min
--- NOTE | 2024-09-02 11:20 | CASEMGMT ---
OLEKSANDR CAMILO Assessment Face to Face with patient for initial transition planning/care coordination assessment. OLEKSANDR CAMILO introduced self and role at [facility], pt voices understanding. Pt is A&Ox4 and is resting comfortably in bed and is calm. Care providers, pharmacy, and demographics verified. Admitting dx: Hyperkalemia LACE Strata: 2 PCP: No PCP. Pt declines list and states that he is going to follow up with his CF specialist through [facility] Specialists: CF specialist through [facility] Preferred Pharmacy: [facility] Insurance: [employer] Prescription Benefit: Yes LNOK: Nic and Emanuel Elisabeth (Parents) Living Arrangements: Pt lives with his parents in a ranch style home with 2 steps to enter ADLs/IADLs: Ind Transportation: Self, parents. Pt states that his parents will drive him home today DME: CBGM, insulin, and sufficient supplies. Denies concerns. Pt also has a BP monitor, Pox, and nebulizer HHC/SNF: Reports HHC a long time ago for IV ATB for CF infections. Denies SNF Pt?s goal: Home Plan: Home no needs. 6-click is 24. Pt refused HHC, OP Tx, CCN, or pt link needs. Pt states that he feels safe going home today with the help of his parents and denies further questions or concerns at this time. Sera Erickson RN, CM
[2024-09-02] MEDS: Insulin Lispro 100 UNIT/ML INSULN.PEN SC (11:23)
[2024-09-02 11:59] LABS: Bedside Glucose 161 mg/dL (74-106)
[2024-09-02 13:03] VITALS: BP 176/102; PULSE 98; RESP 16; TEMP 36.7; O2SAT 92
== END 2024-09-02 13:00 | disposition home or self-care (01) ==
LOC: ED 14:09 → PCU 20:07
PROVIDERS: Admitting Provider Hospitalist; Emergency Provider Emergency Medicine; Visit Provider Student in an Organized Health Care Education/Training Program
DX: E87.5 Hyperkalemia (principal); E84.0 Cystic fibrosis with pulmonary manifestations; E84.8 Cystic fibrosis with other manifestations; E10.65 Type 1 diabetes mellitus with hyperglycemia; Z79.4 Long term (current) use of insulin; J18.9 Pneumonia, unspecified organism; K86.89 Other specified diseases of pancreas; I10 Essential (primary) hypertension; K21.9 Gastro-esophageal reflux disease without esophagitis; Z87.891 Personal history of nicotine dependence; J45.909 Unspecified asthma, uncomplicated; Z79.899 Other long term (current) drug therapy
CPT/HCPCS: J0612; 36415; 71275; 80048; 80053; 80076; 80202; 82962; 85025; 85379; 93005; 94640; 94668; 96361; 96365; 96366; 96367; 96375; 96376; 97802; 99221; 99285; J2185; J2997; J7030; Q9967; A4216; G0378; J1940

== ENCOUNTER 2024-09-15 13:26 | Outpatient (CLI) | payer MEDICAID, SELFPAY ==
[2024-09-15 13:45] VITALS: BP 188/96; PULSE 94; RESP 16; TEMP 37.2; O2SAT 94; BMI 16.5
== END 2024-09-15 23:59 | disposition home or self-care (01) ==
LOC: MEDOUTP 13:26
DX: E84.9 Cystic fibrosis, unspecified (principal)

== ENCOUNTER 2025-05-02 17:26 | Inpatient (IN) | payer MEDICAID, SELFPAY ==
[2025-05-02] VITALS (14 sets, daily range): BP systolic 156–209; BP diastolic 101–130; PULSE 113–122; RESP 12–30; TEMP 36.7–37.1; O2SAT 81–100; BMI 16.4
--- NOTE | 2025-05-02 18:12 | EKG12_ITS ---
Test Reason : SOB Blood Pressure : */* mmHG Vent. Rate : 123 BPM Atrial Rate : 123 BPM P-R Int : 138 ms QRS Dur : 76 ms QT Int : 294 ms P-R-T Axes : 87 92 78 degrees QTcB Int : 420 ms Sinus tachycardia Rightward axis Minimal voltage criteria for LVH, may be normal variant (Sokolow-Curtis) Borderline ECG Confirmed by Burke Francis ([id number]), commercial production editor BE FARAH ([id number]) on 05/03/2025 10:01:54 AM Referred By: Confirmed By: Burke Francis
--- NOTE | 2025-05-02 18:22 | EDS_ITS ---
HPI History of Present Illness Chief Complaint: Shortness of Breath Narrative Narrative: Chief complaint and HPI: Shortness of breath. 29-year-old male with past medical history of cystic fibrosis on Trikafta presents for evaluation of shortness of breath. Patient follows with Dr. Jean Pierre Amaay at [facility] for his cystic fibrosis. States that for the past several weeks he has been having left-sided chest pain in which this has been being worked up by his physician. States that he is supposed to do PFT testing next week. Patient states last week he felt as if he was getting sick. Had increased nonproductive cough and shortness of breath. Shortness of breath has progressively worsened in which he can barely brush his teeth. Endorses low-grade fevers. Denies any headache, abdominal pain, nausea, vomiting. Patient was found to be 81% on room air on arrival. Review of systems: See HPI Medications: As listed on the chart Allergies: As listed on the chart PFSH: Per chart Vital signs: As listed on the chart. Reviewed. Physical exam: Gen: A&O x3 Head: Normocephalic, atraumatic Eyes: No sclera icterus, conjunctiva clear ENT: Mildly dry mucous membranes Neck: Trachea midline, No JVD, full range of motion CV: Tachycardic, no murmurs, no peripheral edema Resp: Lungs diminished in the bilateral bases, coarse, dyspneic, tachypneic, increased work of breathing, on 2 L nasal cannula GI: Thin, Abd soft, non-distended, non-tender, no r/r/g Musc: Full ROM, no deformity Skin: Warm, dry Neuro: Alert, oriented, grossly intact, sensation intact Psych: Cooperative [facility] Medical History Type 1 diabetes mellitus Cystic fibrosis Cystic fibrosis Home Medications ?Medication ?Instructions ?Recorded ?Last Taken ?Type elexacaftor 100 mg-tezacaf 2 ea PO DAILY CF 11/14/19 0 07/04/20 History 50mg-ivacaf 75mg(d)/ivacaf 150mg(n) tablets [id number]-lrsehruu-ldbdwze 2 - 3 cap PO TIDCM CF Unknown History 36,000-114,000-180,000 unit capsule,delay rel insulin glargine 100 unit/mL (3 8 unit SQ QHS DM 07/04 Unknown History mL) subcutaneous pen insulin lispro 100 unit/mL See Protocol SQ TIDCM diabe rafael 07/04/20 08/31/24 History subcutaneous pen tobramycin with nebulizer 300 mg/5 300 mg IH BID SOB 0 07/04/20 Unknown History mL solution for nebulization albuterol sulfate 90 mcg/actuation 2 puff inhalation Q 4H PRN PRN 08/31/24 Unknown History aerosol inhaler (Ventolin HFA) wheezing blood sugar diagnostic (OneTouch 08/31/24 Unknown His tory Verio test strips) blood-glucose sensor (Dexcom G7 08/31/24 Unknown Hist ory Sensor device) carvedilol 25 mg tablet 25 mg PO BID heart/ blood pr essure 08/31/24 Unknown History dornase christi 1 mg/mL solution for 2.5 mg inhalation DA ROLAND breathing 08/31/24 Unknown History inhalation (Pulmozyme) ipratropium 0.5 mg-albuterol 3 mg 3 ml inhalation Q4H PRN PRN 08/31/24 Unknown History (2.5 mg base)/3 mL nebulization wheezing soln pantoprazole 40 mg tablet,delayed 40 mg PO BID GERD Unknown History release polyethylene glycol 3350 17 17 g PO DAILY PRN constipa tion 08/31/24 Unknown History gram/dose oral powder Allergy/AdvReac Type Severity Reaction Status Date / Time cefoxitin AdvReac Intermediate Upset Verified 05/02/25 17:29 Stomach Family History no significant family his Social History Smoking Status: Never smoker EXAM Physical Exam Const Vital Signs: 05/02/25 17:26 05/02/25 17:29 05/02/25 17:39 Temperature 98.1 F 98.1 F Temperature Source Temporal Oral Pulse Rate 122 H 122 H 120 H Respiratory Rate 24 H 24 H 30 H Respiratory Effort Blood Pressure 209/118 H 209/118 H Blood Pressure Mean 148 148 Pulse Ox 81 100 Oxygen Delivery Method Room Air Nasal Cannula Oxygen Flow Rate (L/min) 2 Fraction of Inspired Oxygen (FIO2) 05/02/25 17:47 05/02/25 18:09 05/02/25 18:15 Temperature Temperature Source Pulse Rate 119 H Respiratory Rate Respiratory Effort Short of Breath Blood Pressure 186/118 H Blood Pressure Mean 140 Pulse Ox Oxygen Delivery Method Nasal Cannula Oxygen Flow Rate (L/min) 2 Fraction of Inspired Oxygen (FIO2) 05/02/25 18:29 05/02/25 18:32 05/02/25 18:38 Temperature 98.1 F Temperature Source Oral Pulse Rate 115 H 117 H 113 H Respiratory Rate 19 H 26 H 22 H Respiratory Effort Blood Pressure 191/130 H Blood Pressure Mean 150 Pulse Ox 97 99 Oxygen Delivery Method Bi-pap Oxygen Flow Rate (L/min) Fraction of Inspired Oxygen (FIO2) 30 05/02/25 19:00 05/02/25 19:21 05/02/25 20:37 Temperature 98.1 F 98.8 F Temperature Source Oral Oral Pulse Rate 113 H 118 H 118 H Respiratory Rate 18 22 H Respiratory Effort Blood Pressure 185/126 H 183/128 H 168/101 H Blood Pressure Mean 145 146 123 Pulse Ox 99 98 Oxygen Delivery Method Bi-pap Nasal Cannula Oxygen Flow Rate (L/min) 2 Fraction of Inspired Oxygen (FIO2) 05/02/25 20:37 05/02/25 21:00 05/02/25 22:00 Temperature 98.8 F 98.8 F Temperature Source Oral Oral Pulse Rate 118 H 121 H 118 H Respiratory Rate 21 H 27 H 24 H Respiratory Effort Blood Pressure 156/112 H 176/125 H Blood Pressure Mean 126 142 Pulse Ox 99 96 96 Oxygen Delivery Method Bi-pap Bi-pap Oxygen Flow Rate (L/min) Fraction of Inspired Oxygen (FIO2) 25 MDM MDM MDM Narrative Medical decision making narrative: 29-year-old male with past medical history of cystic fibrosis on Trikafta presents for evaluation of shortness of breath. Patient follows with Dr. Jean Pierre Amaya at [facility] for his cystic fibrosis. On presentation, patient is hypertensive, tachypneic, tachycardic, and hypoxic at 81% on room air. Placed on 2 L nasal cannula prior to me evaluating him with increase in oxygen saturations however still tachycardic, dyspneic, tachypneic into the 40s with increased work of breathing. Differential diagnosis includes but is not limited to sepsis secondary to pneumonia, viral illness, PE, electrolyte abnorma lity, dehydration. Patient states that he is DNR/DNI and that if his respiratory status declines he would not like to be intubated even if this leads to . States he was intubated in the past and does not want to have this performed again.n mother in the room and agreed to patient's wishes. At this point in time, patient does not require intubation however will place on BiPAP for work of breathing. Patient confirmed understanding and agreement. Patient made a sepsis alert however 30 cc/kg bolus not given due to concerns of worsening respiratory status (do not want to cause pulmonary edema) as well as patient is not hypotensive and blood pressure does not require fluids. Patient given meropenem and vancomycin to cover infection broadly especially Pseudomonas. 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 Sepsis workup ordered. On reevaluation after BiPAP, patient's work of breathing has improved with respirations into the low to mid 20s. He states that it is painful to breathe. He is still hypertensive therefore hydralazine will be ordered. ABG shows mild metabolic acidosis with a pH of 7.345. CBC with leukocytosis of 12.8. Patient has baseline anemia with a hemoglobin of 10.7. Labs are compared to labs in 2023. Coagulation panel unremarkable. CMP shows hyperkalemia with potassium of 5.7, renal insufficiency with creatinine of 1.56. Patient had normal creatinine in August 2024. Concern is for possible RITA. Patient has baseline mild AST transaminitis as well as baseline elevated alkaline phosphatase at 629. Troponin 36 and 35 respectively. Suspect this is secondary to infection. BNP mildly elevated at 803. Again will be judicial with fluids to prevent pulmonary edema/fluid overload. Patient has malnutrition with an albumin of 2.7. Lactic acid unremarkable. UA negative for UTI. CT chest negative for PE. Scattered groundglass opacities and tree-in-bud nodularity bilaterally, infectious or conservatory. Diffuse thickening bronchiectasis in addition to mosaic attenuation, keeping with known cystic fibrosis. Enlarged main pulmonary artery, suggestive of pulmonary hypertension. Slight nodular contour of the liver with prominent splenic vein which could be the result of hepatic fibrosis and portal hypertension. COVID, flu, RSV negative. Patient's symptoms are likely secondary from sepsis from pneumonia. Patient will warrant admission. I spoke with the hospitalist service, Dr. Kingston. Recommends transfer to [facility] given that he follows there with his CF team. Patient and mother updated over the results and confirmed understanding. [facility] transfer line was contacted I originally spoke with Dr. Acosta with the hospitalist service however patient will need ICU given he is on BiPAP. I spoke with the MICU physician Dr. Edmond who accepted admission. She recommended hypertonic saline nebulizers however this is not available therefore this cannot be started. We are unable to transfer patient to the local squad given he is on BiPAP therefore he will require critical care transport which [facility] will provide once that is able to be obtained. Patient updated the plan and confirmed understanding. Patient will be monitored in emergency department until transfer is available. EKG: Interpreted by me/EM physician: EKG shows sinus tachycardia with heart rate of 123. No acute ischemic changes. 35 minutes of critical care time utilized in managing the patient. This is due to high probability of and deterioration of the patient based on the patient's condition and excludes any separately billable procedures. Impression: 1. Sepsis secondary to pneumonia with history of cystic fibrosis 3. Acute hypoxic respiratory failure requiring BiPAP secondary to #1 4. Renal insufficiency, concern for RITA 5. Chronic anemia 6. Hyperkalemia 7. Elevated troponin, suspect type II demand 8. Chronic AST transaminitis 9. Chronic elevated alkaline phosphatase Lab Data Labs: Laboratory Results - last 24 hr 05/02/25 05/02/25 05/02/25 17:43 18:20 20:20 WBC 12.8 H RBC 3.62 L Hgb 10.7 L Hct 33.1 L MCV 91.4 MCH 29.6 MCHC 32.3 RDW Std Deviation 52.8 H RDW Coeff of Erika 15.6 H Plt Count 189 MPV 10.2 Immature Gran % (Auto) 0.200 Neut % (Auto) 70.6 H Lymph % (Auto) 12.8 L Andrews % (Auto) 9.4 Eos % (Auto) 6.3 H Baso % (Auto) 0.7 Absolute Neuts (auto) 9.0 H Absolute Lymphs (auto) 1.63 Nucleated RBC % 0 PT 14.3 INR 1.1 APTT 37.2 H Sodium 134 Potassium 5.7 H Chloride 107 Carbon Dioxide 21.0 Anion Gap 6 BUN 29 H Creatinine 1.56 H Estim Creat Clear Calc 39.48 L Est GFR (MDRD) Non-Af 61 BUN/Creatinine Ratio 18.4 Glucose 194 H Lactic Acid < 1.0 Calcium 8.1 Total Bilirubin 0.56 AST 42 H ALT 34 Alkaline Phosphatase 629 H Troponin T High Sens 36 H Troponin T Hi Sens 2 Hr 35 H NT pro BNP II 803 H Total Protein 7.9 Albumin 2.7 L Globulin 5.2 H Albumin/Globulin Ratio 0.5 L Urine Color Yellow Urine Clarity Clear Urine pH 6.0 Ur Specific [place] 1.015 Urine Protein 500 H Urine Glucose (UA) Normal Urine Ketones Negative Urine Occult Blood 50 H Urine Nitrite Negative Urine Bilirubin Negative Urine Urobilinogen Normal Ur Leukocyte Esterase Negative Urine RBC 0-5 SEEN Urine WBC 0-5 SEEN Ur Squamous Epith Cells 0 SEEN Urine Bacteria 0 SEEN Hyaline Casts 0-5 SEEN Coarse Granular Casts 0-5 SEEN Urine Mucus 0 SEEN ABG Data ABG results: ABG 05/02/25 18:33 Specimen Type ART Sample Site R Radial pH 7.35 Bicarbonate Actual 22.5 Total CO2 24 Base Excess -3 L O2 Saturation 97 O2 % 2.0 ABG pCO2 41.3 ABG pO2 92 Marcelo Test Positive O2 Delivery Device Cannula Vent Mode Not entered Radiography Diagnostic Testing: Clinical Impression(s) from Imaging Studies Chest CTA 05/02/25 20:01 IMPRESSION: 1. No evidence of pulmonary embolism. 2. Scattered ground-glass opacities and tree-in-bud nodularity bilaterally, likely infectious or inflammatory. 3. Diffuse bronchial wall thickening and bronchiectasis, in addition to mosaic attenuation, in keeping with known cystic fibrosis. 4. Enlarged main pulmonary artery, suggestive of pulmonary hypertension. 5. Slightly nodular contour of the liver with prominent splenic vein, which could be the result of hepatic fibrosis and portal hypertension. Reading Location: [id number] Discharge Plan Triage Chief Complaint: Shortness of Breath ED Provider: Rory Archer Dx/Rx/DC Orders Prescriptions: No Action msnttb-kqucgagz-abhaxhl 1 EACH capsule,delayed release(DR/EC) 2 - 3 cap PO TIDCM Rx Instructions: TAKE 3 CAPS WITH MEALS AND 2 CAPS WITH SNACKS [id number]-ilguazdncw-farjicc 1 EACH tablets, sequential 2 ea PO DAILY Patient Comments: PT STATES ONLY TAKES THE 2 MORNING TABS AND SKIPS THE EVENING DOSE. tobramycin with nebulizer 300 MG/5 ML solution for nebulization 300 mg IH BID insulin lispro 100 UNIT/ML insulin pen See Protocol SQ TIDCM Protocol: 2. Sliding Scale Insulin Low-Med Dosing Condition: 150-209 mg/dl = 1 unit Condition: 210-269 mg/dl = 2 units Condition: 270-329 mg/dl = 3 units Condition: 330-389 mg/dl = 4 units Condition: 390-449 mg/dl = 5 units Condition: Greater than 449 call physician Protocol Text: - Use for Total Daily Dose of Insulin 28-36 units - Average size patients LOW MEDIUM DOSING ALGORITHM Patient Comments: carb scale per pt insulin glargine 100 UNIT/ML insulin pen 8 unit SQ QHS carvedilol 25 mg tablet 25 mg PO BID (DME) [employer] Verio test strips Strip 1 strip MISCELLANEOUS TID albuterol sulfate [Ventolin HFA] 90 mcg/actuation HFA aerosol inhaler 2 puff INHALATION Q4H PRN PRN (Reason: wheezing) (DME) Dexcom G7 Sensor Device MISCELLANEOUS Patient Comments: [NO ORIGINAL SIG] Pulmozyme 1 mg/mL solution 2.5 mg inhalation DAILY ipratropium-albuterol 0.5 mg-3 mg(2.5 mg base)/3 mL solution for nebulization 3 ml inhalation Q4H PRN PRN (Reason: wheezing) pantoprazole 40 mg tablet,delayed release (DR/EC) 40 mg PO BID polyethylene glycol 3350 17 gram/dose powder 17 g PO DAILY PRN (Reason: constipation) Primary Care Provider: Care Physician,No Primary Referrals: Care Physician,No Primary [Primary Care Provider] - Print Language: Romanian
[2025-05-02] MEDS: 0.9% Normal Saline (1000mL) 1,000 ML 999 ML IV (18:28)
[2025-05-02 18:30] LABS: Absolute Lymphocyte Count 1.63 X10^3/uL (0.83-4.51); Basophil# 0.09 X10^3/uL; Basophil% 0.7 % (0-1); Eosinophils% 6.3 % (0-5); Hematocrit 33.1 % (40-54); Hemoglobin 10.7 g/dL (13.0-16.5); Lymphocyte # 1.63 X10^3/ul (0.83-4.51); Lymphocyte % 12.8 % (19-41); Mean Corp Hgb Conc 32.3 g/dL (32-36); Mean Corpuscular Hgb 29.6 pg (27.0-32.0); Mean Corpuscular Volume 91.4 fL (80-94); Mean Platelet Vol. 10.2 fl (6.2-12.0); Monocyte% 9.4 % (0-10); NRBC Flagged by Analyzer 0 % (0-5); Neutrophil # 9.01 X10^3/uL (2.7-7.7); Neutrophil % 70.6 % (47-70); Platelet Count 189 K/mm3 (150-450); RBC Distribution Width CV 15.6 % (11.6-14.6); RBC Distribution Width SD 52.8 fl (35.1-43.9); Red Blood Count 3.62 M/mm3 (4.6-6.2); White Blood Count 12.8 K/mm3 (4.4-11.0)
[2025-05-02] MEDS: Ipratropium/Albuterol Sulfate 3 ML AMPUL.NEB 6 ML INHALATION (18:30)
[2025-05-02] MEDS: Albuterol 2.5 MG/3 ML VIAL.NEB. INHALATION (18:30)
[2025-05-02 18:37] LABS: Allen Test Positive; Base Excess -3 mmol/L (-2 to +2); Bicarbonate 22.5 mmol/L (22-26); Blood Gas Specimen Type ART; Mode Not entered; O2 Delivery Device Cannula; PO2 92 mmHG (75-100); SITE R Radial; SO2 97 % (95-99); Total Carbon Dioxide 24 mmol/L; pCO2 41.3 mmHg (35-45); pH 7.35 (7.35-7.45)
[2025-05-02 18:44] LABS: International Normalized Ratio 1.1; Prothrombin Time (Protime)PT. 14.3 SECONDS (11.7-14.9)
[2025-05-02 18:45] LABS: Partial Thromboplast Time 37.2 Seconds (24.1-36.2)
[2025-05-02] MEDS: Meropenem 1 GM in 0.9% Normal Saline (100mL MB+) 100 ML IV (18:52)
[2025-05-02] MEDS: DiphenhydrAMINE 50 MG/ML Syringe 25 MG IV (19:16)
[2025-05-02] MEDS: Vancomycin IV 1,000 MG/200 ML BAG 200 MG IV (19:16)
--- NOTE | 2025-05-02 19:25 | ED.RN ---
pt wanted a break from bipap, on 2 L NC now. notified resp therapy and okay with this POC.
[2025-05-02 19:33] LABS: Pro- Brain NATRIURETIC PEPTIDE 803 pg/mL (<=450)
[2025-05-02 19:35] LABS: ALB/GLOB Ratio 0.5 RATIO (0.9-2.4); AST(SGOT) 42 U/L (<=37); Alanine Aminotransfer ALT/SGPT 34 U/L (<=46); Albumin, Serum 2.7 g/dL (3.5-5.0); Alkaline Phosphatase 629 U/L (40-129); Anion Gap 6 (5-15); BUN 29 mg/dL (4-19); BUN/Creat Ratio 18.4 RATIO (10-20); Calcium,Total 8.1 mg/dL (7.6-11.0); Chloride 107 mmol/L (98-108); Creatinine, Serum 1.56 mg/dL (0.70-1.20); EST Glomerular Filtration Rate 61 (>60); Estimated Creatinine Clearance 39.48 ml/min (50-250); Globulin 5.2 g/dL (2.2-4.2); Glucose 194 mg/dL (70-99); Potassium 5.7 mmol/L (3.3-5.1); Protein, Total 7.9 g/dL (5.9-8.4); Sodium Level 134 mmol/L (133-145); Total Bilirubin 0.56 mg/dL (0.00-1.30)
[2025-05-02 19:47] LABS: Lactic Acid < 1.0 mmol/L (0.0-2.0)
--- NOTE | 2025-05-02 20:01 | CT_ITS ---
PROCEDURE: CTA CHEST W/WO CONTRAST 05/02/2025 REASON FOR EXAM: SOB, PE TECHNIQUE: CTA axial imaging of the chest with intravenous contrast. Multiplanar and multisequence images were obtained. 3D post processing was performed PATIENT PREPARATION: Per protocol CONTRAST: 75 mL Isovue 370 One or more dose reduction techniques were used (e.g., Automated exposure control, adjustment of the mA and/or kV according to patient size, use of iterative reconstruction technique). RADIATION DOSE SUMMARY: CTDlvol: 4.5 mGy DLP: 132 mGycm COMPARISON: CTA chest on 09/01/2020 FINDINGS: Lymph nodes: Mildly prominent lymph nodes throughout the mediastinum and amanda, unchanged. Heart: No significant cardiomegaly or coronary calcification. Thoracic Aorta: Unremarkable Pulmonary Vessels: Respiratory motion limits evaluation to the segmental level at the lung bases. Within these limitations, no evidence of pulmonary embolism. Enlarged main pulmonary artery, unchanged. Lungs and Airways: Diffuse bronchiectasis and bronchial wall thickening. There are scattered areas of ground-glass opacity throughout both lungs. Tree-in-bud nodularity in the lower lobes. Mosaic attenuation throughout the lungs. Biapical scarring. Pleura: No pleural effusion. Upper Abdomen: Slightly nodular contour of the liver. Surgical clips in the upper abdomen adjacent to the left gastric artery. Atrophy of the pancreas. Prominent splenic vein. Bones: Unremarkable CT/CTA Chest W/WO Contrast IMPRESSION: 1. No evidence of pulmonary embolism. 2. Scattered ground-glass opacities and tree-in-bud nodularity bilaterally, li rubi infectious or inflammatory. 3. Diffuse bronchial wall thickening and bronchiectasis, in addition to mosaic attenuation, in keeping with known cystic fibrosis. 4. Enlarged main pulmonary artery, suggestive of pulmonary hypertension. 5. Slightly nodular contour of the liver with prominent splenic vein, which co uld be the result of hepatic fibrosis and portal hypertension. Reading Location: [facility]
[2025-05-02 20:08] LABS: Troponin T High Sensitivity 36 ng/L (<=22)
[2025-05-02] MEDS: hydrALAZINE 20 MG/ML Vial 10 MG IV (20:13)
[2025-05-02 20:31] LABS: Bacteria 0 SEEN /hpf (None Seen); Mucous, Urine 0 SEEN /hpf (<or=2+); Squamous Epithelial Cells - UA 0 SEEN /hpf (0-5)
[2025-05-02 20:45] LABS: Color, Urine Yellow (Yellow); Glucose, Dipstick Normal (Normal); Ketone-Dipstick Negative (Negative); Leukocyte Esterase-Dipstick Negative /ul (Negative); Nitrite-Dipstick Negative (Negative); Occult Blood-Urine 50 /ul (Negative); Protein-Dipstick 500 mg/dl (Negative); Specific Gravity, Urine 1.015 (1.002-1.030); Urine Bilirubin Dipstick Negative (Negative); Urine Clarity Clear (Clear); Urine Urobilinogen Normal (Normal)
[2025-05-02 20:51] LABS: Troponin T High Sens 2 HR 35 ng/L (<=22)
[2025-05-02 20:55] LABS: Red Blood Cells-Urine 0-5 SEEN /hpf (0-5); White Blood Cells 0-5 SEEN /hpf (0-5)
[2025-05-02 20:56] LABS: Coarse Granular Cast 0-5 SEEN /lpf (0-5 /lpf); Hyaline Cast 0-5 SEEN /lpf (0-5)
[2025-05-03] VITALS (25 sets, daily range): BP systolic 137–189; BP diastolic 11–121; PULSE 93–120; RESP 12–33; TEMP 36.3–37.1; O2SAT 93–99; BMI 17.3
[2025-05-03] MEDS: Ipratropium/Albuterol Sulfate 3 ML AMPUL.NEB INHALATION ×5 (00:43→19:26)
--- NOTE | 2025-05-03 00:44 | HP.PCM.HOS_ITS ---
HPI - General General Date of Admission: 05/03/25 Date of Service: 05/03/25 Chief Complaint: Dyspnea. HPI Narrative The patient is a 29 y/o M w/ PMHx: Severe protein calorie malnutrition, GERD, IDDM complicated by underlying pancreatic insufficiency, Cystic Fibrosis on Trikafta following with Dr. Jean Pierre Amaya at [facility], Former EtOH abuse, Asthma who presents to the [facility] ED on 05/02/25 with several weeks of left-sided chest discomfort with ongoing outpatient workup per his physician with planned upcoming PFTs the week following however it is worsened with dyspnea associated with nonproductive cough and now onset low-grade fevers with poor oral intake prompting eventual ED evaluation to be cautious. He denies any associated nausea, emesis. Workup in the ED included T98.1, heart rate 122, BP 209/118, respiratory rate 24, initially 81% on room air eventually placed on BiPAP given respiratory distress noted to be 97% on 30% FiO2 with most recent repeat vitals T90.1, heart rate 113, BP 195/126, respiratory rate 18, 99% on BiPAP, CBC with WBC 12.8, hemoglobin 10.7, MCV 91.4, platelet 189 with left shift, coags with PTT 37.2 otherwise unremarkable, ABG unremarkable initially obtained on nasal cannula with noted pH 7.35, O2 saturation 97%, pCO2 41.3, PO292, CMP with potassium 5.7, BUN/creatinine 29/1.56, GFR 61, glucose 194, T. bili 0.56, AST/LT 42/34, alk phos 629, lactic acid less than 1, NT proBNP II 803, initial troponin 36 with repeat delta 35, urinalysis unremarkable, CTA chest with no evidence of PE, scattered groundglass opacities and tree-in-bud nodularity bilaterally infectious versus inflammatory, diffuse bronchial wall thickening and bronchiectasis in addition to mosaic attenuation consistent with cystic fibrosis, enlarged main pulmonary artery suggestive of pulmonary hypertension, slightly nodular contour of the liver with prominent splenic vein. In the ED patient administered 1 L normal saline, DuoNeb therapy as well as albuterol, Benadryl 25 mg IV x 1, hydralazine 10 mg IV x 1 in addition to meropenem 1 g IV x 1 and IV vancomycin. Patient has been accepted to MICU at [facility] but are awaiting bed. [facility] Medical History Chronic anemia Alcohol abuse Asthma Pancreatic insufficiency GERD (gastroesophageal reflux disease) HTN (hypertension) Type 1 diabetes mellitus Cystic fibrosis Home Medications ?Medication ?Instructions ?Recorded ?Last Taken ?Type elexacaftor 100 mg-tezacaf 2 ea PO DAILY CF 11/14/19 0 05/02/25 History 50mg-ivacaf 75mg(d)/ivacaf 150mg(n) tablets cfefpc-iuirdrrh-iuussii 2 - 3 cap PO TIDCM CF 05/02/25 History 36,000-114,000-180,000 unit capsule,delay rel insulin glargine 100 unit/mL (3 8 unit SQ QHS DM 07/0405/02/25 History mL) subcutaneous pen insulin lispro 100 unit/mL See Protocol SQ TIDCM diabe rafael 07/04/20 05/02/25 History subcutaneous pen albuterol sulfate 90 mcg/actuation 2 puff inhalation Q 4H PRN PRN 08/31/24 05/02/25 History aerosol inhaler (Ventolin HFA) wheezing blood sugar diagnostic (OneTouch 08/31/24 Unknown His tory Verio test strips) blood-glucose sensor (Dexcom G7 08/31/24 Unknown Hist ory Sensor device) carvedilol 25 mg tablet 25 mg PO BID heart/ blood pr essure 08/31/24 05/02/25 History dornase christi 1 mg/mL solution for 2.5 mg inhalation DA ROLAND breathing 08/31/24 05/02/25 History inhalation (Pulmozyme) ipratropium 0.5 mg-albuterol 3 mg 3 ml inhalation Q4H PRN PRN 08/31/24 05/02/25 History (2.5 mg base)/3 mL nebulization wheezing soln polyethylene glycol 3350 17 17 g PO DAILY PRN constipa tion 08/31/24 Unknown History gram/dose oral powder Allergy/AdvReac Type Severity Reaction Status Date / Time cefoxitin AdvReac Intermediate Upset Verified 05/02/25 17:29 Stomach Family History (Updated 05/03/25 @ 00:[address] Gretchen Kingston MD) Mother Breast cancer CAD (coronary artery disease) Heart disease Hypertension Myocardial infarction Father Leukemia Family History no significant family his Surgical History H/O intra-abdominal venous shunt Social History (Updated 05/03/25 @ 00:[address] Gretchen Kingston MD) household members: family Smoking Status: Never smoker alcohol intake: former details: Sober since 2021. substance use type: does not use ROS ROS Narrative Admission Review of Systems: CONSTITUTIONAL: No weight loss, fever, chills, + weakness or fatigue. HEENT: Eyes: No visual loss, blurred vision, double vision or yellow sclerae. Ears, Nose, Throat: No hearing loss, sneezing, congestion, runny nose or sore throat. SKIN: No rash or itching, lesions, wounds. CARDIOVASCULAR: + Chest pain. No palpitations, edema, orthopnea, syncopal events. RESPIRATORY: + Dyspnea, not markedly productive cough. No marked wheezing, hemoptysis. GASTROINTESTINAL: + Decreased appetite. No nausea, vomiting or diarrhea, abdominal pain, melena, BRBPR. GENITOURINARY: No dysuria, frequency, urgency or retention. NEUROLOGICAL: No headache, dizziness, syncope, paralysis, ataxia, numbness or tingling in the extremities, focal weakness, change in bowel or bladder control, seizure. MUSCULOSKELETAL: + muscle, back pain, joint pain or stiffness. HEMATOLOGIC: + Chronic anemia, no marked easy bleeding/bruising. LYMPHATICS: No enlarged nodes. No history of splenectomy. PSYCHIATRIC: No history of depression or anxiety. ENDOCRINOLOGIC: No reports of sweating, cold or heat intolerance. No polyuria or polydipsia. ALLERGIES: No history of asthma, hives, eczema or rhinitis. Vital Signs Vital Signs Vital Signs: 05/02/25 17:26 05/02/25 17:29 05/02/25 17:39 Temperature 98.1 F 98.1 F Temperature Source Temporal Oral Pulse Rate 122 H 122 H 120 H Respiratory Rate 24 H 24 H 30 H Respiratory Effort Blood Pressure 209/118 H 209/118 H Blood Pressure Mean 148 148 Pulse Ox 81 100 Oxygen Delivery Method Room Air Nasal Cannula Oxygen Flow Rate (L/min) 2 Fraction of Inspired Oxygen (FIO2) 05/02/25 17:47 05/02/25 18:09 05/02/25 18:15 Temperature Temperature Source Pulse Rate 119 H Respiratory Rate Respiratory Effort Short of Breath Blood Pressure 186/118 H Blood Pressure Mean 140 Pulse Ox Oxygen Delivery Method Nasal Cannula Oxygen Flow Rate (L/min) 2 Fraction of Inspired Oxygen (FIO2) 05/02/25 18:29 05/02/25 18:32 05/02/25 18:38 Temperature 98.1 F Temperature Source Oral Pulse Rate 115 H 117 H 113 H Respiratory Rate 19 H 26 H 22 H Respiratory Effort Blood Pressure 191/130 H Blood Pressure Mean 150 Pulse Ox 97 99 Oxygen Delivery Method Bi-pap Oxygen Flow Rate (L/min) Fraction of Inspired Oxygen (FIO2) 30 05/02/25 19:00 05/02/25 19:21 05/02/25 20:37 Temperature 98.1 F 98.8 F Temperature Source Oral Oral Pulse Rate 113 H 118 H 118 H Respiratory Rate 18 22 H Respiratory Effort Blood Pressure 185/126 H 183/128 H 168/101 H Blood Pressure Mean 145 146 123 Pulse Ox 99 98 Oxygen Delivery Method Bi-pap Nasal Cannula Oxygen Flow Rate (L/min) 2 Fraction of Inspired Oxygen (FIO2) 05/02/25 20:37 05/02/25 21:00 05/02/25 22:00 Temperature 98.8 F 98.8 F Temperature Source Oral Oral Pulse Rate 118 H 121 H 118 H Respiratory Rate 21 H 27 H 24 H Respiratory Effort Blood Pressure 156/112 H 176/125 H Blood Pressure Mean 126 142 Pulse Ox 99 96 96 Oxygen Delivery Method Bi-pap Bi-pap Oxygen Flow Rate (L/min) Fraction of Inspired Oxygen (FIO2) 25 05/02/25 23:00 05/02/25 23:15 05/03/25 00:00 Temperature 98.8 F 98.8 F Temperature Source Oral Oral Pulse Rate 114 H 117 H 115 H Respiratory Rate 21 H 24 H 23 H Respiratory Effort Blood Pressure 167/119 H 173/100 H Blood Pressure Mean 135 124 Pulse Ox 95 99 94 Oxygen Delivery Method Nasal Cannula Nasal Cannula Oxygen Flow Rate (L/min) 2 2 Fraction of Inspired Oxygen (FIO2) 25 05/03/25 00:39 05/03/25 00:40 Temperature 98.8 F Temperature Source Pulse Rate 120 H 115 H Respiratory Rate 22 H 23 H Respiratory Effort Blood Pressure 173/100 H Blood Pressure Mean 124 Pulse Ox 95 94 Oxygen Delivery Method Oxygen Flow Rate (L/min) Fraction of Inspired Oxygen (FIO2) 25 Weight Weight: 89 lb 11.2 oz Body Mass Index (BMI) 16.4 Physical Exam Narrative Physical Examination: General: Awake, alert, oriented x 3 and cooperative, seated upright in the ED bed, fatigued, recent trial of BiPAP being off, noted conversational dyspnea, tachypnea, accessory muscle usage and tachycardia with evidence of persistent respiratory distress thus willing to have BiPAP be placed again. Skin: Normal color, normal turgor, no icterus, no cyanosis except occasional stage ecchymoses, abrasion. HEENT: AT/NC, EOMI, PERRLA, moderately dry MM, no carotid bruits or JVD noted. Lungs: Diminished, greater bases, right greater than left, mildly coarse/rhonchorous right base, tachypnea, accessory muscle usage, conversational dyspnea, evidence of distress, BiPAP being replaced. Heart: Tachycardic with regular rhythm; no gallop, rub audible. Abdomen: Soft, thin cachectic habitus, NTTP, ND, distant normal BS, no appreciated HSM. Extremities: No cyanosis, clubbing, or edema, evidence of muscle wasting. Neurological: Patient awake, alert, oriented as noted, cognitive function intact; pupils equally reactive to light and accommodation, cranial nerves gross normal, moving all 4 extremities, no focal deficits, strength severely globally decreased secondary to acute presentation. Psychiatric: Affect appears fatigued, ill-appearing, evidence of respiratory distress as noted, no acute evidence of depressive or anxiety feelings. Results Lab / Micro Data 05/02/25 17:43 05/02/25 17:43 Labs: Laboratory Results - last 24 hr 05/02/25 17:43: WBC 12.8 H, RBC 3.62 L, Hgb 10.7 L, Hct 33.1 L, MCV 91.4, MCH 29.6, MCHC 32.3, RDW Std Deviation 52.8 H, RDW Coeff of Erika 15.6 H, Plt Count 189, MPV 10.2, Immature Gran % (Auto) 0.200, Neut % (Auto) 70.6 H, Lymph % (Auto) 12.8 L, Wells % (Auto) 9.4, Eos % (Auto) 6.3 H, Baso % (Auto) 0.7, A bsolute Neuts (auto) 9.0 H, Absolute Lymphs (auto) 1.63, Nucleated RBC % 0, PT 14.3, INR 1.1, APTT 37.2 H, Sodium 134, Potassium 5.7 H, Chloride 107, Carbon Dioxide 21.0, Anion Gap 6, BUN 29 H, Creatinine 1.56 H, Estim Creat Clear Calc 39.48 L, Est GFR (MDRD) Non-Af 61, BUN/Creatinine Ratio 18.4, Glucose 194 H, Calcium 8.1, Total Bilirubin 0.56, AST 42 H, ALT 34, Alkaline Phosphatase 629 H, Troponin T High Sens 36 H, NT pro BNP II 803 H, Total Protein 7.9, Albumin 2.7 L , Globulin 5.2 H, Albumin/Globulin Ratio 0.5 L 05/02/25 18:20: Lactic Acid < 1.0 05/02/25 20:20: Troponin T Hi Sens 2 Hr 35 H, Urine Color Yellow, Urine Clarity Clear, Urine pH 6.0, Ur Specific [place] 1.015, Urine Protein 500 H, Urine Glucose (UA) Normal, Urine Ketones Negative, Urine Occult Blood 50 H, Urine Nitrite Negative, Urine Bilirubin Negative, Urine Urobilinogen Normal, Ur Leukocyte Esterase Negative, Urine RBC 0-5 SEEN, Urine WBC 0-5 SEEN, Ur Squamous Epith Cells 0 SEEN, Urine Bacteria 0 SEEN, Hyaline Casts 0-5 SEEN, Coarse Granular Casts 0-5 SEEN, Urine Mucus 0 SEEN Micro: Microbiology 05/02/25 18:20 Mucosa - Nose SARS-CoV-2, Influenza & RSV (PCR) - Final ABG Data ABG results: ABG 05/02/25 18:33 Specimen Type ART Sample Site R Radial pH 7.35 Bicarbonate Actual 22.5 Total CO2 24 Base Excess -3 L O2 Saturation 97 O2 % 2.0 ABG pCO2 41.3 ABG pO2 92 Marcelo Test Positive O2 Delivery Device Cannula Vent Mode Not entered Imaging Radiology Impression Chest CTA 05/02/25 20:01 IMPRESSION: 1. No evidence of pulmonary embolism. 2. Scattered ground-glass opacities and tree-in-bud nodularity bilaterally, likely infectious or inflammatory. 3. Diffuse bronchial wall thickening and bronchiectasis, in addition to mosaic attenuation, in keeping with known cystic fibrosis. 4. Enlarged main pulmonary artery, suggestive of pulmonary hypertension. 5. Slightly nodular contour of the liver with prominent splenic vein, which could be the result of hepatic fibrosis and portal hypertension. Reading Location: [id number] Assessment & Plan Assessment/Plan (1) Acute hypoxic respiratory failure: PLAN: Plan The patient is a 29 y/o M w/ PMHx: Severe protein calorie malnutrition, GERD, IDDM complicated by underlying pancreatic insufficiency, Cystic Fibrosis on Trikafta following with Dr. Jean Pierre Amaya at [facility], Former EtOH abuse, Asthma who presents to the [facility] ED on 05/02/25 with several weeks of left-sided chest discomfort with ongoing outpatient workup per his physician with planned upcoming PFTs the week following however it is worsened with dyspnea associated with nonproductive cough and now onset low-grade fevers with poor oral intake prompting eventual ED evaluation to be cautious. #1. Acute Hypoxic Respiratory Failure secondary to Acute Bilateral Pneumonia/Bronchietasis with possible gram-negative/gram-positive organisms given history complicated by underlying Asthma and Cystic Fibrosis on Trikafta: Patient with complicated underlying history with significant cystic fibrosis history awaiting transfer to tertiary facility, in the interim until bed is available per discussion with patient's will admit to the ICU, will consult collector of internal revenue per protocol, will maintain on oxygen with wean as tolerated to room air, initiate VEST, continue ATC duonebs, PRN albuterol, maintain on IV Zosyn, azithromycin and Vancomycin, HOB, IS parameters w/ pending sputum culture, MRSA screen, full respiratory viral panel, procalcitonin and urine antigens, consult ICU physician pending transfer bed availability. Bld cx x 2 obtained in the ED. #2. Acute kidney injury on CKD stage II per previous GFR records: Secondary to poor intake, malnutrition, dehydration especially given #1. Admission BUN/Cr 29/1.56, GFR 61, prior baseline creatinine noted to be primarily 0.8-1.0. Will hydrate, hold nephrotoxic medications and repeat chemistry in AM. #3. Hyperkalemia: Admission potassium 5.7 with no evidence of any hemolysis, will maintain on telemetry, initiated on hyperkalemic protocol in ED, will continue to trend BMP and repeat protocol as needed. #4. Indeterminate cardiac enzyme: Initial troponin 36 with repeat delta 35, BNP mildly elevated 83, suspect likely demand, will maintain on telemetry, continue to cycle cardiac enzymes to be cautious, EKGs as needed, magnesium level requested, awaiting transfer to tertiary facility as noted. #5. Chronic normocytic anemia: Admission hemoglobin 10.7, MCV 91.4, baseline hemoglobin has vacillated but more recently in 2023. To be 7-9 range however there is no recent labs following 08/31/2024 hemoglobin 9.1, likely associated with alcohol chronic abuse, will continue to trend CBC. #6. IDDM, diabetes mellitus type 1 with chronic pancreatic insufficiency: Will monitor oral intake and if appropriate continue home insulin regimen, ADA diet, accu checks w/ ISS, continue home Creon supplementation. #7. Former EtOH Abuse: Sober since 2021, encourage continued sobriety. #8. Hypertension, uncontrolled likely secondary to acute presentation #1 is notably elevated upon ED arrival: Continue home regimen including Coreg with hold parameters as needed, PRN hydralazine. #9. GERD: Will continue patient on PPI. #10. Severe protein calorie malnutrition: Evidenced by significant decreased BMI, muscle/fat loss, underlying significant disease history as noted above, nutrition consulted. #11. DVT prophylaxis: Lovenox. #12. CODE status: Patient HCPOA and living will are not in place but he notes his parents would be his medical decision makers if necessary. Discussed CODE status at length including difference between FULL code, DNR-CCA and DNR-CC status. Following discussions about the differences in these status, requested DNR-CCA, no intubation, no aggressive measures, amenable to BIPAP. Advanced Care Planning Face to Face Time: 16 minutes. Charges/Coding Visit Charges Inpatient E&M: 25489 Init Hosp L3 Procedures Hospitalists Procedures: 74078 Advncd Care Plan 30 Min
--- OUTSIDE RECORDS SUMMARY | 2025-05-03 00:50 | XMS RPT_ITS | CCD ---
Author Organization [facility] Care Team Providers Care General Car Supervisor Yard Name Role Phone DARRIAN, STEPHIE J Unavailable Unavailable IMCA Unavailable Unavailable DARRIAN, STEPHIE J Unavailable Unavailable IMCA Unavailable Unavailable DARRIAN, STEPHIE J Unavailable Unavailable DARRIAN, STEPHIE J Unavailable Unavailable DARRIAN, STEPHIE J Unavailable Unavailable DARRIAN, STEPHIE J Unavailable Unavailable DARRIAN, STEPHIE J Unavailable Unavailable IMCA Unavailable Unavailable DARRIAN, STEPHIE J Unavailable Unavailable DARRIAN, STEPHIE J Unavailable Unavailable Darrian ACCOUNTING REPRESENTATIVE.Stephie BIANCHI Unavailable Jean Pierre Kilgore MD Unavailable No byproducts extractor, Md Primary Care Provider Zeynep vailable Orquidea Crespo Unavailable [phone] Mike EDWARD/LD, Orquidea Unavailable Garry ACCOUNTING REPRESENTATIVE-Jasmyn BIANCHI Unavailable Merlin RN, Maryam Patton Unavailable Unavailable Luis Eduardo LEGGETT, Whitley Jones Unavailable Unavailable PHYSICIAN, NONE Primary Care Physician Unavailab le PROVIDER, UNKNOWN Attending Unavailable PROVIDER, UNKNOWN Admitting Unavailable Darrian ACCOUNTING REPRESENTATIVE.Stephie BIANCHI Unavailable Darrian ACCOUNTING REPRESENTATIVE.Stephie BIANCHI Unavailable NO PRIMARY CARE, Primary Care Unavailable CURTIS CISNEROS Attending Unavailable CURTIS CISNEROS Admitting Unavailable Jean Pierre Kilgore MD Unavailable Abelino EDWARD, Be Unavailable Rosalino Bertrand Attending Unavailable Rosalino Bertrand Referring Unavailable Care Physician, No Primary Primary Care Unava ilable Niko Cook Admitting Unavailable Niko Cook Consulting Unavailable Anahi Wilder Attending Unavailable Care Physician, No Primary Primary Care Unava ilable Koram, Anaih Prudence Consulting Unavailable Niko Cook Attending Unavailable Niko Cook Admitting Unavailable Niko Cook Consulting Unavailable Care Physician, No Primary Primary Care Unava ilable Koram, Anahi Foss Attending Unavailable Koram, Anahi Prudence Consulting Unavailable ESQUIVEL, JE Referring Unavailable ESQUIVEL, JE Consulting Unavailable Herman, Lenora Dawn Primary Care Unavailable ESQUIVEL, JE Attending Unavailable ESQUIVEL, JE Referring Unavailable ESQUIVEL, JE Attending Unavailable Care Physician, No Primary Primary Care Unava ilable ESQUIVEL, JE Attending Unavailable ESQUIVEL, JE Referring Unavailable ESQUIVEL, JE Consulting Unavailable Herman, Lenora Dawn Primary Care Unavailable ESQUIVEL, JE Referring Unavailable ESQUIVEL, JE Consulting Unavailable Herman, Lneora Dawn Primary Care Unavailable ESQUIVEL, JE Attending Unavailable Niko Cook Admitting Unavailable Niko Cook Consulting Unavailable Meño, Anahi Foss Attending Unavailable Care Physician, No Primary Primary Care Unava ilable ESQUIVEL, JE Attending Unavailable Herman, Lenora Connollye Primary Care Unavailable JEAN PIERRE KILGORE NATHALIE Referring UnavailSTEPHIE Zamora Attending Unavaila ble DARRIANSTEPHIE HANCOCK Referring Unavaila ble BUCUR, SALLY Referring Unavailable STEPHIE RAMIREZ Attending Unavaila STEPHIE Green Referring Unavaila ble BUCUR, SALLY Referring Unavailable STEPHIE RAMIREZ Attending Unavaila ble DARRIANSTEPHIE HANCOCK Attending Unavaila ble BUCUR, SALLY Referring Unavailable BUCUR, SALLY Referring Unavailable SHEJEAN PIERRE ELMORE Attending Unavailabl e SHEJEAN PIERRE ELMORE NATHALIE Referring Unavailabl e BUCUR, SALLY Referring Unavailable BUCUR, SALLY Referring Unavailable WEIELGEORGE FERNANDO Referring Unavailable JESUS HZANGISTA Attending Unavailable SHEERS, JEAN PIERRE NATHALIE Referring Unavailabl e SHEERSJOSSELINUS NATHALEI Attending Unavailabl e SHEERS JEAN PIERRE NATHALIE Referring Unavailabl e SHEERS, JEAN PIERRE NATHALIE Referring Unavailabl e FARRUKH GOMES Referring Unavailable BUCUR, SALLY Referring Unavailable BUCUR, SALLY Referring Unavailable BUCUR, SALLY Referring Unavailable BUCUR, SALLY Attending Unavailable BUCUR, SALLY Attending Unavailable BUCUR, SALLY Referring Unavailable SHEJEAN PIERRE ELMORE NATHALIE Attending Unavailabl e TUROWSKI, ALEX Referring Unavailable TUROWSKI, ALEX Referring Unavailable JUNNA, TIA Attending Unavailable SHEERS, JEAN PIERRE NATHALIE Attending Unavailabl e SHEERS, JEAN PIERRE NATHALIE Referring Unavailabl e SHEERS, JEAN PIERRE NATHALIE Referring Unavailabl e SHEERS, JEAN PIERRE NATHALIE Referring Unavailabl e BUCUR, SALLY Referring Unavailable BUCUR, SALLY Referring Unavailable BUCUR, SALLY Referring Unavailable MIELNIK, FERNANDO Referring Unavailable MIELNIK, FERNANDO Referring Unavailable BUCUR, SALLY Referring Unavailable BUCUR, SALLY Referring Unavailable BUCUR, SALLY Referring Unavailable BUCUR, SALLY Referring Unavailable BUCUR, SALLY Referring Unavailable MIELNIK, FERNANDO Attending Unavailable BENNINGER, SHE Referring Unavailable TUROWSKI, ALEX Referring Unavailable BUCUR, SALLY Referring Unavailable BUCUR, SALLY Referring Unavailable BUCUR, SALLY Attending Unavailable BUCUR, SALLY Referring Unavailable LAIQUE, MONO N Referring Unavailable SHEERS, JEAN PIERRE NATHALIE Referring Unavailabl e BUCUR, SALLY Referring Unavailable Allergies Allergy Classification Reported Allergen(s) Allergy Type Date of Onset Reaction(s) Facility Cephalosporins (antibiotic) (4 sources) cefOXitin Drug Allergy 6 Rash, Other: See Comments [facility] Glycopeptides (antibiotic) (4 sources) Vancomycin Drug Allergy 3 Itching, Rash [facility] linezolid (4 sources) linezolid Drug Allergy 3 Rash, GI Upset [facility] Work Phone: (20 sources) cefOXitin; Translations: [CEFOXITIN] Drug Allergy 6 Rash, Other (See Comments), Other: See Comments [facility] Repository (20 sources) Vancomycin; Translations: [VANCOMYCIN] Drug Allergy 3 Itching, Rash [facility] (20 sources) linezolid; Translations: [LINEZOLID] Drug Allergy 3 Rash, GI Upset [facility] Work Phone: Medications Current Medications Medication Drug Class(es) Dates Sig (Normalized) Sig (Original) albuterol 0.83 mg/ml inhalation solution (20 sources) beta2-Adrenergic Agonist Start: 09-27-2024 take 3 mL by inhalation every four hours as needed for wheezing albuterol (PROVENTIL) 2.5 mg /3 mL (0.083 %) nebulizer solution Indications: Cystic fibrosis (HCC) Use 3 mL via nebulizer every 4 hours as needed for wheezing/shortnes s of breath. Inhale over 5-15 minutes 360 mL 11 09/27/2024 Active Start: 07-30-2023 End: 09-27-2024 take 2 puff(s) by mouth every four hours for wheezing albuterol HFA (VENTOLIN HFA) 90 mcg/actuation inhaler inhale 2 puffs by mouth as directed every 4 hours if needed for wheezing or shortness of breath 54 g 11 07/30/2023 09/27/2024 Discontinued Start: 07-23-2022 End: 07-30-2023 take 2 puff(s) [...] of breath. inhale 2 puffs by mo uth as directed every 4 hours if needed for wheezing or shortness of breath albuterol 0.833 mg/ml / ipratropium bromide 0.167 mg/ml inhalation solution (20 sources) Anticholinergic, beta2-Adrenergic Agonist Start: 2023 take 3 mL by inhalation every four [...] enzymes level due to cystic fibrosis (HCC) Inhale 3 mL as instructed every 4 hours as needed for wheezing/shortness of breath. 360 mL 11 11/10/2024 Active Start: 09-24-2023 take 3 mL by inhalat ion every four hours as needed for wheezing ipratropium-albuterol (DUONEB) 0.5 mg-3 mg(2.5 mg base)/3 [...] as needed for wheezing/shortness of breath. 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 3 with snacks 1350 capsule 3 02/09/2025 Active Start: 01-14-2022 End: 01-14-2023 CREON [id number] units cap cyndy Take 3 Capsules (108,000 Units) by mouth Before Meals and 2 Snacks 450 Capsule 11 01/14/2022 01/14/2023 Active Start: 11-14-2019 Lipase-Proteas e-Amylase Active 2 - 3 CAP PO 3 TIMES DAILY WITH MEALS November 14, 2019 1:00am TAKE 3 CAPS WITH MEALS AND 2 CAPS WITH SNACKS Start: 05-28-2016 End: 09-24-2023 take 3 capsules [...] by inhalation three times daily aztreonam lysine ([facility]) 75 mg/mL nebulizer solution Indications: Cystic fibrosis [...] sugar s 3x/day Blood-Glucose Meter,Continuous (DEXCOM G7 FARROWING MANAGER) misc (20 sources) Start: 02-27-2023 Blood-Glucose Meter,Continuous (DEXCOM G7 FARROWING MANAGER) misc Indications: Type 1 diabetes mellitus with hyperglycemia (HCC) For monitoring sugars 1 Each 02/27/2023 Suspended Start: 02-27-2023 Blood-Glucose Meter,Continuous (DEXCOM G7 FARROWING MANAGER) misc Indications: Type 1 diabetes mellitus with hyperglycemia (HCC) For monitoring sugars 1 Each 02/27/2023 Active Comment on above: For monitoring sugar s Blood-Glucose Sensor (DEXCOM G7 SENSOR) jean-paul (20 sources) Start: 02-14-2025 Blood-Glucose Sensor (DEXCOM G7 SENSOR) jean-paul Indications: Type 1 diabetes mellitus with hyperglycemia (HCC) use as directed and REPLACE every 10 days 3 Each 02/14/2025 Active Start: 03-01-2024 End: 02-14-2025 Blood-Glucose Sensor (DEXCOM G7 SENSOR) jean-paul Indications: Type 1 diabetes mellitus with hyperglycemia (HCC) use as directed and REPLACE every 10 days 3 Each 03/01/2024 02/14/2025 Discontinued Start: 03-01-2024 Blood-Glucose Sensor (DEXCOM G7 SENSOR) jean-paul Indications: Type 1 diabetes mellitus with hyperglycemia (HCC) use as directed and REPLACE every 10 days 3 Each 03/01/2024 Active Start: 02-27-2023 End: 03-01-2024 Blood-Glucose Sensor (DEXCOM G7 SENSOR) jean-paul Indications: Type 1 diabetes mellitus with hyperglycemia (HCC) One sensor every 10 days 3 Each 02/27/2023 03/01/2024 Discontinued Start: 02-27-2023 Blood-Glucose Sensor [...] alpha-Adrenergic Ericka, beta-Adrenergic Ericka Start: 02-16-2024 End: 09-27-2024 take 1 tablet by mouth twice daily at mealtime carvedilol (COREG) 25 mg tablet Indications: Cystic fibrosis (HCC) Take 1 tablet by mouth two times a day with meals. 60 tablet 11 09/27/2024 Active Start: 10-06-2022 End: 02-16-2024 take 1 tablet by mouth twice daily at mealtime carvedilol (COREG) 6.25 mg tablet take 1 tablet by mouth twice a day with meals 60 tablet 11 10/24/2023 02/16/2024 Discontinued Start: 08-01-2022 End: 08-31-2022 [...] Fri05/12/22 at 1624, Until Fri05/14/22 at 1711, Allergies OP SIG:Take 1 Tab (10 mg) by mouth daily as needed for Allergies take 2 tablets by mo uth once daily cetirizine (ZYRTEC) 5 mg tablet Take 10 mg by mouth once daily. Active Comment on above: Take 1 tablet by nils th once daily. Take 10 mg by mouth once daily. cholecalciferol 1.25 mg oral capsule (20 sources) Vitamin D Start: 024 take 1 capsule by mouth two times weekly cholecalciferol, Vitamin D3, (VITAMIN D3) 1,250 mcg (50,000 unit) cap capsule Indications: Cystic fibrosis (HCC) , 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) Take 1 capsule by mouth two times a week. 8 capsule 3 12/04/2023 Active Comment on above: Take 1 capsule by [facility] two times a week. ciprofloxacin 750 mg oral tablet (19 sources) Quinolone Antimicrobial Start: End: take 1 tablet by mouth three times daily ciprofloxacin HCl (CIPRO) 750 mg tablet Indications: Fever, unspecified fever cause , Acute cough , Cystic fibrosis (HCC) Take 1 tablet by mouth three times a day for 14 days. 42 tablet 01/31/2025 02/14/2025 Active Start: 10-23-2022 End: 11-13-2022 take 1 tablet by mouth three times [...] Comment on above: Take 1 tablet by [facility] twice daily for 21 days. Take 1 tablet by [facility] three times daily for 14 days. Take 1 tablet by [facility] three times daily for 21 days. 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 225 mL 3 09/15/2024 09/15/2025 Active Start: 05-12-2022 End: 05-14-2022 2.5 mg (0.0665 mg/kg/DAY), N ebulization, DAILY, 90 doses, First dose on Fri05/12/22 at 1630, Last dose on Fri08/09/22 at 0900 Start: 07-03-2020 dornase alpha (PULMOZYME) 1 MG/ML nebulizer solution Use 2.5 mL (2.5 mg) by nebulization daily 225 mL 3 07/03/2020 Active Comment on above: Inhale 2.5 mL as ins tructed once daily. doxycycline hyclate 100 mg oral tablet (12 sources) Tetracycline-class Drug Start: 5 End: 5 take 1 tablet by mouth twice daily doxycycline (VIBRA-TABS) 100 mg tablet Take 1 tablet by mouth two times a day. 28 tablet 04/08/2025 Active Ggmpajxq-Zyyvgbx-Wkr caf&Ivacaf (TRIKAFTA) 100-50-75 & 150 MG oral tablet therapy pack (1 source) Start: 1 take 1 tablet by mouth in the morning Eybsspik-Crpnyak-Fmre af&Ivacaf (TRIKAFTA) 100-50-75 & 150 MG oral tablet therapy pack Am dose only 84 Tablet 10/08/2021 Active elexacaftor 100 mg-tezacaftor 50 mg-ivacaftor [...] morning , hold evening dose 84 Each 09/15/2024 Active Start: 09-15-2024 elexacaftor 10 0 mg-tezacaftor 50 mg-ivacaftor 75 [...] morning , hold evening dose 84 Each 09/15/2024 Active Start: 09-24-2023 End: 09-15-2024 elexacaftor 100 mg-tezacafto r 50 mg-ivacaftor 75 [...] , hold evening dose 84 Each 09/24/2023 09/15/2024 Discontinued Start: 09-24-2023 elexacaftor 10 0 mg-tezacaftor 50 [...] , hold evening dose 84 Each 11 09/24/2023 Active Start: 07-29-2023 End: 09-24-2023 elexacaftor [...] tablet every morning , hold evening dose Elexacaftor-Tezacaftor -Ivacaft (5 sources) Start: 11-14-2019 Elexacaftor-Tezacaftor -Ivacaft Active 2 EACH PO DAILY November 14, 2019 12:00am Start: 11-14-2019 Elexacaftor-Te zacaftor-Ivacaft Active 2 EACH PO DAILY November 14, 2019 1:00am ergocalciferol 1.25 mg oral capsule (20 sources) Provitamin D2 Compound Start: 07-18-2022 End: 07-30-2023 take 1 capsule by mouth two times weekly VITAMIN D2 1,250 mcg (50,000 unit) capsule Indications: 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) , Vitamin D deficiency Take 1 [...] 02-25-2022 vitamin D (ERG OCALCIFEROL) 1.25 MG (29620 UT) capsule Take 1 Capsule (50,000 Units) by mouth every 7 days Indications: Osteoporosis 12 Capsule 3 02/25/2022 Active Comment on above: Take 1 capsule by mo ut one time a week. Take 1 capsule by mo ut two times a week. glucagon 3 mg nasal powder (20 sources) Antihypoglycemic Agent Start: 12-20-2022 glucagon (BAQSIMI) 3 mg/actuation nasal spray Indications: Type 1 diabetes mellitus with hyperglycemia (HCC) Use 1 Absaraka in the nose as needed. May repeat [...] SIGNIFICANT LOW BLOOD SUGAR EVENT Use 1 Absaraka in the n ose as needed. May [...] injector (20 sources) Insulin Analog Start: 03-09-2024 End: 02-14-2025 insulin glargine (LANTUS SOLOSTAR U-100 INSULIN) 100 unit/mL (3 mL) Indications: Type 1 diabetes mellitus with hyperglycemia (HCC) inject 11 units subcutaneously at bedtime 15 mL 11 02/14/2025 Active Start: 09-29-2023 End: 03-09-2024 inject 8 [...] at bedtime 2 Each 3 09/06/2022 Active Start: 07-04-2020 inject 3 [IU] by sub cutaneous injection at bedtime Insulin Glargine Active 3 UNIT SQ AT BEDTIME July 04, 2020 12:00am Comment on above: Inject 8 units subcu taneously at bedtime inject 11 units subc utaneously at bedtime 3 ml insulin lispro 100 unt/ml pen injector (20 sources) Insulin Analog Start: 09-10-2021 End: 02-14-2025 insulin lispro (HUMALOG KWIKPEN INSULIN) 100 unit/mL Indications: Type 1 diabetes mellitus with hyperglycemia (HCC) Dose varies units with meals and sliding scale, using about 30 total units a day 15 mL 11 02/14/2025 Active Start: 07-04-2020 Insulin Lispro Active 0 UNIT SQ 3 TIMES DAILY WITH MEALS July 04, 2020 12:00am Comment on above: Dose varies units with meals and sliding scale, using about 40 total units a day Dose varies units wi th meals and sliding scale, using about 30 total units a day iv contrast (will be provided with radiology test) (2 sources) Start: End: iv contrast (will be provided with radiology [...] in the MR contrast administration guidelines link. meropenem 1000 mg injection (17 sources) Penem Antibacterial Start: End: inject 1 g intravenously every twelve hours [...] 42 g 08/18/2024 08/18/2024 Discontinued (Dosage adjustment) metoprolol tartrate 25 mg oral tablet (5 sources) beta-Adrenergic Ericka Start: 07-07-2020 take 12.5 mg by mouth twice daily Metoprolol Tartrate Active 12.5 MG PO TWICE A DAY 60 July 07, 2020 12:00am minocycline 100 mg oral capsule (12 sources) [...] by Does not apply route 0 Active MVW COMPLETE FORMULATION (MVW COMPLETE FORMULATION) CAPS (1 source) Start: 1 take 2 capsules by mouth once daily MVW COMPLETE FORMULATION (MVW COMPLETE FORMULATION) CAPS Take 2 Capsules by mouth daily 60 Capsule 11 07/09/2021 Active Nebulizers (20 sources) Start: 2 Nebulizers Indications: Cystic fibrosis with pulmonary manifestations [...] Each three time s daily. 1 Each 6 08/01/2022 11/27/2022 Discontinued Start: 08-01-2022 Nebulizers 1 [...] above: 1 Each three times d aily. Nicotine (Nicotine Patch) 1 EACH Patch.Td24 (5 sources) Start: 07-07-2020 apply 1 dose transdermal route once daily Nicotine (Nicotine Patch) 1 EACH Patch.Td24 Active 21 MG TRANSDERM. DAILY July 06, 2020 11:00pm Start: 07-07-2020 apply 1 dose transde rmal route once daily Nicotine (Nicotine Patch) 1 EACH Patch.Td24 Active 21 MG TRANSDERM. DAILY July 07, 2020 12:00am nirmatrelvir tablet 300 mg (150 mg x 2) and ritonavir tablet 100 mg in a dose pack (PAXLOVID) (3 sources) Start: 08-26-2022 End: 08-31-2022 nirmatrelvir tablet 300 mg (150 mg x [...] tablets twice daily. NONFORMULARY (1 source) Start: 06-25-2013 NONFORMULARY Novolog Meals: 1 units of Rapid [...] oral capsule (2 sources) Neuraminidase Inhibitor Start: 11-05-2022 End: 11-10-2022 take 1 capsule by mouth twice daily oseltamivir (TAMIFLU) 75 mg capsule Indications: Cystic fibrosis with pulmonary manifestations (HCC) Take 1 capsule by mouth twice daily for 5 days. 10 capsule 1 11/05/2022 11/10/2022 Suspended Comment on above: Take 1 capsule by [facility] twice daily for 5 days. perflutren lipid microspheres 1.3 mL in NaCl (PF) 0.9% 10 mL injection (DEFINITY) (20 sources) Start: 07-21-2022 End: 10-20-2023 perflutren lipid microspheres 1.3 mL in NaCl (PF) 0.9% 10 mL injection (DEFINITY) Respiratory Therapy Supplies (BOB ALTERA NEBULIZER HANDSET) MISC (1 source) Start: 08-11-2019 Respiratory Therapy Supplies (BOB ALTERA NEBULIZER HANDSET) MISC 1 Each by Does not apply route 3 times daily To be used to nebulize [place] 1 Each 5 08/11/2019 Active 1000 ml sodium chloride 9 mg/ml injection (20 sources) Start: 08-25-2024 End: 09-01-2024 0.9 % sodium chloride (NACL 0.9%) 0.9% [...] intravenously daily at bedtime for 10 days. 21801 mL 0 11/27/2022 12/07/2022 Active Start: 11-18-2022 [...] medication IVPB bag if given., Starting on 05/12/22 at 1624, For 90 days Flush IV line after medication IVPB bag if given. Start: 05-12-2022 End: 05-14-2022 10 mL PRN (0.266 ml/kg/DOSE) , Intravenous, at 0-999 mL/hr, Line Care, For mixture of medications, Starting on 05/12/22 at 1624, For 90 days For mixture [...] sodium polystyrene sulfonate 250 mg/ml oral suspension (20 sources) Start: 09-09-2024 End: 02-09-2025 sodium polystyrene sulfonate, with sorbitol, (SPS) 15-20 gram/60 mL susp suspension Indications: Hyperkalemia Take 120 mL by mouth as needed. Take 120 mL by mouth as needed for hyperkalemia while on home IV antibiotics 120 mL 3 02/09/2025 Active Start: 08-31-2024 End: 08-31-2024 sodium polystyrene sulfonate , with sorbitol, (SPS) 15-20 gram/60 mL susp suspension Indications: Hyperkalemia Take 120 mL by mouth one time only for 1 dose. 120 mL 08/31/2024 08/31/2024 Active Start: 08-27-2024 End: 08-27-2024 sodium polystyrene sulfonate , with sorbitol, (SPS) [...] time only for 1 dose. Spacer/Aero-Holding Chambers (Xand DINO) JEAN-PAUL DEVICE (1 source) Start: 05-25-20 Spacer/Aero-Hold ing Chambers (eCoast) JEAN-PAUL DEVICE by Other route Use as [...] 21 days. Take 2 tablets by mo [facility] twice daily for 14 days. Take 2 tablets by mo [facility] twice daily for 21 days. Take 1 tablet by nils twice daily for 14 days. tobramycin 60 mg/ml inhalation solution (6 sources) Aminoglycoside Antibacterial Start: 07-04-20 20 take 300 mg by inhalation twice daily Tobramycin With Nebulizer Active 300 MG IH TWICE A DAY July 04, 2020 12:00am Start: 07-03-2020 tobramycin (TO BI) 300 MG/5ML nebulizer solution Use 5 mL (300 mg) by nebulization every 12 hours Use every other month. 56 Ampule 6 07/03/2020 Active vancomycin 500 mg injection (16 sources) Glycopeptide Antibacterial Start: 08-18-2024 End: 09-02-2024 inject 500 mg intravenously every twelve hours vancomycin 500 mg injection Indications: Cystic fibrosis with pulmonary exacerbation (HCC) , 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 Inject 500 mg intravenously every 12 hours for 14 days. 28 Each 08/19/2024 09/02/2024 Active vitamin k2 0.04 mg oral tablet (20 sources) Start: 2022 End: 10-15-2022 take 1 tablet by mouth once daily [...] Comment on above: Take 1 tablet by [facility] once daily. ascorbic acid 226 mg / beta carotene 38784 unt / cuprous oxide 0.8 mg / dl-alpha tocopheryl acetate 200 unt / zinc oxide 34.8 mg oral capsule (20 sources) Vitamin C Start: 08-26-2023 End: 07-06-2024 take 1 capsule by mouth twice daily at mealtime Vit A,C,E-Ommw-Wrrnum (PRESERVISION AREDS) 4,296 mcg-226 mg-90 mg cap Take 1 capsule by mouth twice daily. Take with food. 60 capsule 0 08/26/2023 07/06/2024 Discontinued (Discontinued by another Health Care Provider) Start: 08-26-2023 End: 07-06-2024 PRESERVISION AREDS-2 250-90- 40-1 mg Start: 08-26-2023 PRESERVISION A REDS-2 250-90-40-1 mg Start: 08-26-2023 take 1 capsule by [facility] twice daily at mealtime PRESERVISION AREDS-2 250-90-40-1 mg take 1 capsule by mouth twice a day with food 0 08/26/2023 Suspended Start: 08-26-2023 take 1 capsule by [facility] twice daily at mealtime PRESERVISION AREDS-2 250-90-40-1 mg take 1 capsule by mouth twice a day with food 0 08/26/2023 Active Comment on above: Take 1 capsule by mo [facility] twice daily. Take with food. take 1 capsule by [facility] twice a day with food [...] by nils th two times a day. citalopram 20 mg oral tablet (20 sources) Serotonin Reuptake Inhibitor Start: End: 3 take 1 tablet by mouth [...] by mouth. Take 1 tablet by nils th once daily. Take 20 mg by mouth once daily. Reports not taking at this time. Onjrtnhm-Otdsnxn-S vacaf&Ivacaf (Trikafta) oral tablet therapy pack 1 [...] over the phone with OLEKSANDR Pryor at [facility] 05-12-22. RN must override scan for administration. [...] 84 Each 1 09/25/2022 07/23/2023 Discontinued Start: 09-25-2022 elexacaftor-te zacaftor-ivacaftor (TRIKAFTA) 100-50-75 mg(d) [...] 84 Each 1 09/25/2022 Active End: 09-25-2022 ebwztqrbgsx-zolhhoerdj-yzkjo ftor (TRIKAFTA) 100-50-75 mg(d) /150 mg (n) [...] in each nostril once daily. 16 g 03/19/2023 03/18/2024 Start: 03-10-2023 End: 03-18-2024 take [...] 03/10/2023 Discontinued Start: 05-12-2022 End: 05-14-2022 1 Absaraka, Each Nare, 2 TIMES DAILY, 180 doses, First dose on 05/12/22 at 2100, Last dose on 08/10/22 at 0900 OP SI Absaraka by Each Nare route 2 times daily Start: 01-14-2022 End: 01-14-2023 fluticasone (FLONASE) 50 MCG /ACT nasal spray 1 [place] by Each Nare route 2 times daily [...] Discontinued Start: 01-14-2022 take 1 puff(s) by [facility] twice daily fluticasone-salmeterol (ADVAIR) 500-50 MCG/DOSE diskus inhaler Inhale 1 Puff into the lungs 2 times daily Rinse mouth after each use. 1 Each 01/14/2022 Active take 1 puff(s) by in [...] (0.319 g/kg/DOSE), Oral , PRN, Starting on Fri05/12/22 at 1624, Until [...] above: Take 1 tablet by nils th once daily for 14 days. 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 For PICC/Midline insertion Only 10 mL 08/18/2024 10/12/2024 Discontinued (Discontinued by Patient) 2 ml metoclopramide 5 mg/ml prefilled syringe (1 source) Dopamine-2 Receptor Antagonist Start: 05-12-20 End: 05-12-20 metoclopramide (REGLAN) injection 10 mg Start: 05-12-2022 End: 05-12-2022 metoclopramide (REGLAN) inje ction 10 mg montelukast 10 mg oral tablet (20 sources) Leukotriene Receptor Antagonist Start: 09-11-2022 End: 10-12-2024 take 1 tablet by mouth once daily at bedtime montelukast (SINGULAIR) 10 mg tablet Indications: CF (cystic fibrosis) (HCC) , 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) , Chronic pansinusitis , Pseudomonas aeruginosa infection , Burkholderia cepacia infection , Hemoptysis Take 1 tablet by mouth daily at bedtime. 90 tablet 5 09/11/2022 10/12/2024 Discontinued (Discontinued by Patient) Comment on above: Take 1 tablet by nils th daily at bedtime. MVW COMPLETE FORMULATION Capsule 2 Capsule (1 [...] am and 4 pm. polyethylene glycol 3350 39584 mg powder for oral solution (20 sources) Osmotic Laxative Start: 02-16-2024 End: 07-06-2024 polyethylene glycol 3350 17 gram packet Take 1 Packet by mouth once daily as needed. Dissolve dose in 4 - 8 ounces of liquid and take as directed. 0 02/16/2024 07/06/2024 Discontinued (Discontinued by another Health Care Provider) Start: 12-04-2023 End: 02-16-2024 polyethylene glycol 3350 (WI RALAX) 17 gram/dose powder Indications: Cystic fibrosis [...] 20 mg oral tablet (4 sources) Start: 11-27-20 End: 12-02-19 take 2 tablets by mouth once daily predniSONE (DELTASONE) 20 mg tablet Take 2 tablets by mouth once daily for 5 days. 10 tablet 0 11/27/2022 12/02/2022 Comment on above: Take 2 tablets by [facility] once daily for 5 days. sennosides, [facility] 8.6 mg oral tablet (1 source) Start: 05-12-20 End: 05-14-20 senna (SENOKOT) tablet 8.6 mg torsemide 10 mg oral tablet (20 sources) Loop Diuretic Start: 07-24-20 End: 02-16-20 take 1 tablet by mouth once daily torsemide (DEMADEX) 10 mg tablet Take 1 tablet by mouth once daily. 30 tablet 0 07/24/2023 02/16/2024 Discontinued Comment on above: Take 1 tablet by [facility] once daily. tranexamic acid 650 mg oral tablet (20 sources) Antifibrinolytic Agent Start: 10-17-20 End: 10-12-20 take 2 tablets by mouth three times daily tranexamic acid (LYSTEDA) 650 mg tablet Indications: Cystic fibrosis with pulmonary manifestations (HCC) , Pseudomonas aeruginosa infection , Burkholderia cepacia infection Take 2 tablets by mouth three times a day for 5 days. 30 tablet 08/11/2024 10/12/2024 Discontinued (Discontinued by Patient) Start: 07-25-2022 End: 11-11-2022 take 2 tablets [...] three times a day for 5 days. TRIKAFTA 100-50-75 mg(d) /150 mg (n) tablet (7 sources) Start: 2 TRIKAFTA 100-50-75 mg(d) /150 mg (n) tablet ursodiol 300 mg oral capsule (20 sources) Bile Acid Start: 8 End: 4 take 1 capsule by mouth twice daily ursodiol (ACTIGALL) 300 mg capsule take 1 capsule by mouth twice a day 30 capsule 2 07/13/2024 10/12/2024 Discontinued (Discontinued by Patient) Comment on above: TAKE 1 CAP (300 MG) BY MOUTH 2 TIMES DAILY Take 300 mg by mouth twice daily. vitamin a 12987 unt oral capsule (20 sources) Vitamin A [...] above: Take 1 capsule by mo uth once daily. vitamin k1 5 mg oral [...] Until Tu05/14/22 at 1711, For mixture of medications For [...] on above: Take 1 capsule by mo [facility] once daily for 2 weeks and 2 capsules per week thereafter Problems Active Problems Problem Classification Problem Date Documented Da te Episodic/Chronic Alcohol-related disorders (5 sources) Alcohol abuse; Translations: [Alcohol abuse, uncomplicated] 07-04-2020 Chronic Allergic reactions (2 sources) Allergic bronchopulmonary aspergillosis; Translations: [Allergic bronchopulmonary aspergillosis] Onset: 9 Chronic Anxiety disorders (20 sources) Mixed anxiety and depressive disorder; Translations: [Anxiety disorder, unspecified] Onset: 3 07-03-2023 Chronic Asthma (7 sources) Uncomplicated moderate persistent asthma; Translations: [Moderate [...] 2 09-11-2020 Chronic Diabetes mellitus without complication (9 sources) Type 1 diabetes mellitus; Translations: [Type 1 diabetes mellitus without complications] Onset: 3 07-04-2020 Chronic Esophageal disorders (20 sources) Gastroesophageal reflux disease without esophagitis; Translations: [Gastro-esophageal reflux disease without esophagitis] Onset: 0 Chronic Essential hypertension (20 sources) Essential hypertension; Translations: [Essential (primary) hypertension] Onset: 2 11-05-2022 Chronic Fever of unknown origin (4 sources) Fever; Translations: [Fever, unspecified] Onset: 5 01-31-2025 Episodic Gastroduodenal ulcer (except hemorrhage) (20 sources) Ulcer [...] D deficiency, unspecified] Onset: 2 Chronic Osteoporosis (3 sources) Osteoporosis; Translations: [Age-related osteoporosis without current pathological fracture] 08-01-2023 Chronic Other gastrointestinal disorders (1 source) [...] 07-08-2023 Chronic Other liver diseases (1 source) Liver disorders in diseases classified elsewhere; Translations: [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)] Onset: 5 Chronic Other liver diseases (1 source) Other cirrhosis of liver; Translations: [Other cirrhosis of liver (HCC)] Onset: 3 Chronic Other liver diseases (1 source) Liver disease, unspecified; Translations: [Cystic fibrosis with [...] Dyspnea; Translations: [Dyspnea, unspecified] 02-12-2024 Episodic Other lower respiratory disease (1 source) Cough; Translations: [Acute cough] 01-31-2025 Episodic Other lower respiratory disease (2 sources) Cough; Translations: [Subacute cough] 02-07-2025 Episodic Other nutritional; endocrine; and metabolic disorders [...] Translations: [Chronic pansinusitis] Onset: 2 2022 Chronic Other upper respiratory infections (1 source) Sore throat symptom; Translations: [Acute pharyngitis, unspecified] 02-07-2025 Episodic Respiratory failure; insufficiency; arrest (adult) (20 sources) [id number]-rbmjvhv respiratory failure; Translations: [Acute and chronic respiratory failure with hypoxia] Onset: 2 11-06-2022 Chronic Unclassified (1 source) Unknown / UNK(Unknown) Onset: 8 Unclassified (1 source) Acute cough; Translations: [Acute cough] Onset: 5 Unclassified (1 source) Subacute cough; Translations: [Subacute cough] Onset: 5 Past or Other Problems Problem Classification Problem [...] surveillance; Translations: [Dietary counseling and surveillance] Onset: 09-10-2024 Episodic Bacterial infection; unspecified site (20 sources) [...] Onset: 12-15-1995 Resolved: 12-01-2004 12-07-2009 Chronic Other aftercare (1 source) Encounter for adjustment and management of vascular access device; Translations: [Encounter for adjustment and management of vascular access device] Onset: 03-02-2024 Episodic Other bone disease and musculoskeletal deformities (1 source) Osteopenia; Translations: [Other specified disorders of bone density and structure, unspecified site] Onset: 12-07-2009 02-23-2018 Episodic Other circulatory disease (20 sources) Bleeding; Translations: [Hemorrhage, not elsewhere classified] Onset: 02-05-2024 Resolved: 02-16-2024 02-05-2024 Episodic Other gastrointestinal disorders (20 sources) Ascites; Translations: [Other ascites] Onset: 07-09-2023 07-09-2023 Episodic Other liver diseases (20 sources) Alkaline phosphatase raised; Translations: [Abnormal levels of other serum enzymes] Onset: 07-08-2023 07-08-2023 Episodic Other nutritional; endocrine; and metabolic disorders (20 sources) Underweight; Translations: [Underweight] Onset: 2022 2022 Episodic Other screening for suspected conditions (not mental disorders or infectious disease) (7 sources) Patient encounter status; Translations: [Encounter for [...] Test Name Value Interpretation Reference Range Facility CNOVon 02-14-2025 CNOV Office Visit (ENAGST ) JAY BARBER ([id number]) 1995 Date Time Provider Department 02/14/25 2:30 PM STEPHIE RAMIREZ During your visit today, we recorded the following information about you: Pulse Blood pressure Weight Height 85/minute 131/83 39.7 kg 1.565 m Stephie Ramirez APRN.BUGGY LADLE TENDER 02/14/2025 6:50 PM Signed Subjective Date of encounter: 02/14/2025 Jay Barber (1995), is a 29 year old male who presents for Diabetes [...] 10/2023: 6.4%, 01/2024: 6.3%, 03/2024: 6.1%, 07/2024: 6.2%, 10/2024: 6.3%, 01/2025: HbA1C 6.2%, Thyroid Function Testin10/2013: TSH 2.29 (0.358-3.740), free T4 1.02 (0.76-1.46), 12/2015: TSH 1.970 (0.358-3.740 uIU/mL), free T4 1.15 (0.76-1.46 ng/dL), 01/2018: TSH 1.735 (0.35-5.5), 12/2018: TSH 1.137 (0.35-5.5), 05/2019: TSH 2.293 (0.35-5.5), 01/2020: TSH 1.754 (0.35-5.5), free T4 1.2 (0.9-1.5), 01/2021: TSH 1.9 (0.27-4.2 uIU/mL), free T4 1.2 (0.9-1.7), 12/2021: TSH 3.41 (0.27-4.2 uIU/mL), free T4 1.1 (0.9-1.7), 07/2023: TSH 2.35 (0.27-4.2 uIU/mL), 10/2024: TSH 1.81 (0.27-4.2 uIU/mL) Renal Function Testin08/2013: creatinine 0.7, 12/2015: creatinine 0.69 mg/dL, eGFR >60,), 05/2018: Creatinine 0.72, 01/2019: Creatinine 0.86, 07/2019: Creatinine 0.73, 07/2020: Creatinine 0.65, 10/2020: Creatinine 0.64, 01/2021: Creatinine 0.81, 03/2021: Creatinine 0.73, 12/2021: Creatinine 0.64, 12/2022: Creatinine 0.78, 03/2023: Creatinine 0.83, 08/2023: Creatinine 1.13 eGFR 90, 10/2023: Creatinine 1.04, 03/2024: Creatinine 1.37 eGFR 71, 03/2024: Creatinine 1.02, 10/2024: Creatinine 1.3 eGFR 75, 01/2025: Creatinine 2.2 eGFR 40, Urine for Microalbumin:10/2013: Microalbumin:Creatini ne ratio ok,12/2015: microalbumin : creatinine ratio ok, 08/2017: Microalbumin:Creatini ne Ratio ok, 10/2018: Microalbumin:Creatini ne Ratio 535, 01/03/2020: Microalbumin:Creatini ne Ratio 650, 01/2021: Microalbumin:Creatini ne Ratio 361. Improved but above goal. Jay states he has used lisinopril in the past but this increased his potassium too much and it was discontinued. He will inquire further with his CF providers about losartan. I advised him to make an appointment with nephrology as we had previously discussed., 03/19/2021: Microalbumin:Creatini ne Ratio 1220, 08/2021: still hasn't made appointment with kidney specialist, stressed the importance of this to prevent further kidney damage., 10/2022: prot/creat ratio in epic, making appointment with nephrology, 07/2023: prot/creat ratio in the medical center Lipid Profile:10/2013: TC 111, HDL 42, LDL [...] results in care everywhere, 01/2020: labs in [facility], 07/2020; Alkaline Phosphatase 725 (45-117), ALT 77 (16-61), AST 163 (15-37), 12/2020: results in care everywhere., 03/2021: results In care everywhere, 12/2021: Alkaline Phosphatase 918 (38-113), bone percent 13.9%, liver percent 86.1 , 12/2022: liver function monitored by CF providers, 03/2023: in the medical center, 08/2023: LFTS in the medical center, 10/2023: LFTS in the medical center, 03/2024: liver test in the medical center, 10/2024: liver in the medical center, 01/2025: liver in the medical center Dilated Eye Exam: Patient educated to have ophthalmology visits at least once a year. 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 08/2013: New patient visit for Cystic Fibrosis related Diabetes Previous diabetes [facility] reviewed prior to today's office visit. [...] enzymes. Endocrinology: we manage patients CFRD only. Continuous Glucose Monitor (CGM) documentation Monitor Brand: dexcom Date range: (more content not included)... Normal [facility] Comprehensive metabolic 2000 panelon 02-14-2025 Albumin [Mass/Vol] 2.0 g/dL Low 3.9-4.9 [facility] Comment on above: Order Comment: Speci men Type: BLOOD SPECIMEN Ordering Facility: [facility] Address: [address] [place] [address] Performed By: #### 2 4323-8 #### [facility] CLIA [id number] [address] [place] [facility] ALP [Catalytic activity/Vol] 1416 U/L High 38-113 [facility] Comment on above: Order Comment: Speci men Type: BLOOD SPECIMEN Ordering Facility: [facility] Address: [address] [place] [address] Performed By: #### 2 4323-8 #### [facility] CLIA [id number] [address] ALT With P-5'-P [Catalytic activity/Vol] 41 U/L Normal 10-54 [facility] Comment on above: Order Comment: Speci men Type: BLOOD SPECIMEN Ordering Facility: [facility] Address: [address] [place] [address] Performed By: #### 2 4323-8 #### [facility] CLIA [id number] [address] Anion gap [Moles/Vol] 9 mmol/L Normal 8-15 [facility] Comment on above: Order Comment: Speci men Type: BLOOD SPECIMEN Ordering Facility: [facility] Address: [facility] [place] [address] Performed By: #### 2 4323-8 #### [facility] CLIA [id number] [address] [place] AST With P-5'-P [Catalytic activity/Vol] 78 U/L High 14-40 [facility] Comment on above: Order Comment: Speci men Type: BLOOD SPECIMEN Ordering Facility: [facility] Address: [address] [place] [address] Performed By: #### 2 4323-8 #### [facility] CLIA [id number] 1 [place] [address] [place] Bilirubin [Mass/Vol] 0.3 mg/dL Normal 0.2-1.3 [facility] Comment on above: Order Comment: Speci men Type: BLOOD SPECIMEN Ordering Facility: [facility] Address: [address] [place] [address] Performed By: #### 2 4323-8 #### [facility] CLIA [id number] 1 [place] [address] [place] Calcium [Mass/Vol] 8.1 mg/dL Low 8.5-10.2 [facility] Comment on above: Order Comment: Speci men Type: BLOOD SPECIMEN Ordering Facility: [facility] Address: [address] [place] [address] Performed By: #### 2 4323-8 #### [facility] CLIA [id number] 1 [place] [address] [place] Chloride [Moles/Vol] 103 mmol/L Normal 98-107 [facility] Comment on above: Order Comment: Speci men Type: BLOOD SPECIMEN Ordering Facility: [facility] Address: [address] [place] [address] Performed By: #### 2 4323-8 #### [facility] CLIA [id number] [address] [place] CO2 [Moles/Vol] 21 mmol/L Low 22-30 [facility] Comment on above: Order Comment: Speci men Type: BLOOD SPECIMEN Ordering Facility: [facility] Address: [address] [place] [address] Performed By: #### 2 4323-8 #### [facility] CLIA [id number] [address] [place] Creatinine [Mass/Vol] 1.36 mg/dL High 0.73-1.22 [facility] Comment on above: Order Comment: Speci men Type: BLOOD SPECIMEN Ordering Facility: [facility] Address: [address] [place] [address] Performed By: #### 2 4323-8 #### [facility] CLIA [id number] 1 [place] [address] [place] Creatinine and Glomerular filtration rate.predicted panel (S/P/Bld) 71 mL/min/1.73m??? Normal >=60 [facility] Comment on above: Order Comment: Kanu sainz Type: BLOOD SPECIMEN Ordering Facility: [facility] Address: [address] [place] [address] Result Comment: Janeth mated Glomerular Filtration Rate [...] actual GFR. Performed By: #### 2 4323-8 #### [facility] CLIA [id number] [address] [place] [address] [place] Glucose [Mass/Vol] 109 mg/dL High 74-99 [facility] Comment on above: Order Comment: Kanu sainz Type: BLOOD SPECIMEN Ordering Facility: [facility] Address: [address] [place] [address] Result Comment: The [place] [employer] (ADA) provides guidance for cutoff [...] Standards of Medical Care in Diabetes 2016, [place] [employer]. Diabetes Care. 2016.39(Suppl 1). Performed By: #### 2 4323-8 #### [facility] CLIA [id number] 1 [place] [address] [place] Potassium [Moles/Vol] 4.3 mmol/L Normal 3.7-5.1 [facility] Comment on above: Order Comment: Kanu sainz Type: BLOOD SPECIMEN Ordering Facility: [facility] Address: [address] [place] [address] Performed By: #### 2 4323-8 #### [facility] CLIA [id number] 1 [place] [address] [place] Protein [Mass/Vol] 7.4 g/dL Normal 6.3-8.0 [facility] Comment on above: Order Comment: Paruli men Type: BLOOD SPECIMEN Ordering Facility: [facility] Address: [address] [place] [address] Performed By: #### 2 4323-8 #### [facility] CLIA [id number] [address] [place] [address] [place] Sodium [Moles/Vol] 133 mmol/L Low 136-144 [facility] Comment on above: Order Comment: Paruli men Type: BLOOD SPECIMEN Ordering Facility: [facility] Address: [address] [place] [address] Performed By: #### 2 4323-8 #### [facility] CLIA [id number] [address] [place] [address] [place] Urea nitrogen [Mass/Vol] 33 mg/dL High 9-24 [facility] Comment on above: Order Comment: Kanu alistair Type: BLOOD SPECIMEN Ordering Facility: [facility] Address: [address] [place] [address] Performed By: #### 2 4323-8 #### [facility] CLIA [id number] [address] [place] [address] [place] STREP A MOLECULAR (POC)on Procedural Control Valid [facility] Strep A (POCT) Negative Negative [facility] XR Chest PA and Lateralon IMPRESSION: Findings related to known underlying cystic fibrosis with bronchiectasis and peribronchial cuffing. Slight shift in superimposed hazy airspace opacities suggesting evolving infectious/inflammato ry process. Clinical correlation requested. Environmental Technology Professor: KATHIE Transcribe Date/Time: Feb 07 2025 11:33A Dictated by : LILLIANA MOODY MD This examination was interpreted and the report reviewed and electronically signed by: LILLIANA MOODY MD on Feb 07 2025 11:36AM [facility] DIVISION OF RADIOLOGY * * *Final Report* * * DATE OF EXAM: Feb 07 2025 11:30AM WOX [id number] - XR CHEST 2V FRONTAL/LAT / PROCEDURE REASON: Subacute cough * * * * Physician Interpretation * * * * EXAMINATION: CHEST RADIOGRAPH (2 VIEW FRONTAL & LATERAL) CLINICAL HISTORY: Subacute cough. Cystic fibrosis. MQ: XC2_6 EXAM DATE/TIME: 02/07/2025 11:30 AM COMPARISON: Chest x-ray dated 02/01/2025 RESULT: Lines, tubes, and devices: None. Lungs and pleura: No appreciable interval change in coarse interstitial markings related to underlying bronchiectasis with associated peribronchial cuffing. Slight interval improvement in superimposed hazy airspace opacities in the right upper lobe, however apparent slight interval increase in hazy/reticular opacities in the left lower lobe. Findings suspicious for evolving infectious/inflammato ry process. No pleural effusion or pneumothorax. Cardiomediastinal silhouette: Stable cardiomediastinal silhouette. Bones and soft tissues: Surgical clips in the upper abdomen. DIVISION OF RADIOLOGY Provider, [facility] - 02/07/2025 * * *Final Report* * * DATE OF EXAM: Feb 07 2025 11:30AM WOX [id number] - XR CHEST 2V FRONTAL/LAT / PROCEDURE REASON: Subacute cough * * * * Physician Interpretation * * * * EXAMINATION: CHEST RADIOGRAPH (2 VIEW FRONTAL & LATERAL) CLINICAL HISTORY: Subacute cough. Cystic fibrosis. MQ: XC2_6 EXAM DATE/TIME: 02/07/2025 11:30 AM COMPARISON: Chest x-ray dated 02/01/2025 RESULT: Lines, tubes, and devices: None. Lungs and pleura: No appreciable interval change in coarse interstitial markings related to underlying bronchiectasis with associated peribronchial cuffing. Slight interval improvement in superimposed hazy airspace opacities in the right upper lobe, however apparent slight interval increase in hazy/reticular opacities in the left lower lobe. Findings suspicious for evolving infectious/inflammato ry process. No pleural effusion or pneumothorax. Cardiomediastinal silhouette: Stable cardiomediastinal silhouette. Bones and soft tissues: Surgical clips in the upper abdomen. IMPRESSION IMPRESSION: Findings related to known underlying cystic fibrosis with bronchiectasis and peribronchial cuffing. Slight shift in superimposed hazy airspace opacities suggesting evolving infectious/inflammato ry process. Clinical correlation requested. Environmental Technology Professor: PSCB Transcribe Date/Time: Feb 07 2025 11:33A Dictated by : LILLIANA MOODY MD This examination was interpreted and the report reviewed and electronically signed by: LILLIANA MOODY MD on Feb 07 2025 11:36AM EST [facility] Radiology Study observation (narrative) [facility] XR Chest PA and LateralOrder ed By: [facility] Provider on 02-07-2025 [facility] 10-14-2024 [place] Telephone (ENAGST) JAY BARBER ([id number]) 1995 M Date Time Provider Department 10/14/24 STEPHIE RAMIREZ During your visit today, we recorded the following information about you: Stephie Ramirez, ADALI.BUGGY LADLE TENDER 10/14/2024 11:32 AM Signed 10/2024: TSH 1.81 (0.27-4.2 uIU/mL), Thyroid lab ok Please call patient, review message, then sign encounter. Crystal Bridges LPN 10/14/2024 2:00 PM Signed Done spoke with the patient.Patient verbalized understanding. Crystal Bridges LPN October 14, 2024 2:00 PM Allergies As of Date: 10/14/2024 Noted Allergy Reaction VANCOMYCIN 06/21/2013 9 - Itching 2 - Rash Comments: Gets Red Man syndrome and pt if not premedicated with benadryl prior to Vancomycin infusions. CEFOXITIN 11/21/2006 2 - Rash 14 - Other: See Comments Comments: Severe abdominal pain, diarrhea, rash Severe Abdominal Pains LINEZOLID 07/02/2023 2 - Rash 8 - GI Upset Date Reviewed: 10/12/2024 Reviewed by: Stephie Ramirez APRN.BUGGY LADLE TENDER - Fully Assessed Reason for Visit: Results [95] Prescriptions as of 10/14/2024 - carvedilol (COREG) 25 mg tablet Take 1 tablet by mouth two times a day with meals. - albuterol (PROVENTIL) 2.5 mg /3 mL (0.083 %) nebulizer solution Use 3 mL via nebulizer every 4 hours as needed for wheezing/shortness of breath. Inhale over 5-15 minutes - elexacaftor 100 mg-tezacaftor 50 mg-ivacaftor 75 mg(d)/ivacaftor 150 mg(n) tablets (TRIKAFTA) Alternate between 2(starting 07/30) and 1 tablet every morning , hold evening dose - dornase christi (PULMOZYME) 1 mg/mL nebulizer solution Inhale 2.5 mL as instructed once daily. - sodium polystyrene sulfonate, with sorbitol, (SPS) 15-20 gram/60 mL susp suspension Take 120 mL by mouth as needed. Take 120 mL by mouth as needed for hyperkalemia while on home IV antibiotics - fluticasone-salmetero l (ADVAIR DISKUS) 500-50 mcg/dose dsdv Inhale 1 Puff as instructed two times a day. - insulin glargine (LANTUS SOLOSTAR U-100 INSULIN) 100 unit/mL (3 mL) inject 11 units subcutaneously at bedtime - Lancets Use as instructed 3x/day - blood sugar diagnostic (BLOOD GLUCOSE TEST) test strip 3x/day - insulin lispro (HUMALOG KWIKPEN INSULIN) 100 unit/mL Dose varies units with meals and sliding scale, using about 30 total units a day - Blood-Glucose Sensor (Seeder G7 SENSOR) jean-paul use as directed and REPLACE every 10 days - Insulin Vaughn, Disposable, (BD YARON 2ND GEN PEN NEEDLE) 32 gauge x 5/32 5x/day - cholecalciferol, Vitamin D3, (VITAMIN D3) 1,250 mcg (50,000 unit) cap capsule Take 1 capsule by mouth two times a week. - CREON 36,000-114,000- 180,000 unit delayed release capsule Take 3 capsules by mouth three times a day with meals. 3 with snacks - ipratropium-albuterol (DUONEB) 0.5 mg-3 mg(2.5 mg base)/3 mL nebu Inhale 3 mL as instructed every 4 hours as needed for wheezing/shortness of breath. - Blood-Glucose Meter monitoring kit For monitoring sugars 3x/day - VITAMIN D2 1,250 mcg (50,000 unit) capsule Take 1 capsule by mouth two times a week. - Blood-Glucose Meter,Continuous (DEXCOM G7 FARROWING MANAGER) [facility] [place] monitoring sugars - glucagon (BAQSIMI) 3 mg/actuation nasal spray Use 1 [place] in the nose as needed. May repeat [...] 10 mg by mouth once daily. - Nebulizers 1 Each three times daily. 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 Normal [facility] CBC W Auto Differential pane l (Bld)on 10-12-2024 Basophils (Bld) [#/Vol] 0.09 10*3/uL Normal <0.11 [facility] Comment on above: Order Comment: Speci men Type: BLOOD SPECIMENOrdering Facility: [facility] Address: [address] [place] [address] Performed By: #### 5 7021-8 ####[facility] LABORATORYCLIA [id number] [place] [address] [place] Basophils/100 WBC (Bld) 1.3 % Normal [facility] Comment on above: Order Comment: Paruli alistair Type: BLOOD SPECIMENOrdering Facility: [facility] Address: [address] [place] [address] Performed By: #### 5 7021-8 ####[facility] LABORATORYCLIA [id number] [place] [address] [place] Differential cell count method Nom (Bld) Auto Normal [facility] Comment on above: Order Comment: Speci men Type: BLOOD SPECIMENOrdering Facility: [facility] Address: [address] [place] [address] Performed By: #### 5 7021-8 ####[facility] LABORATORYCLIA [id number] [place] [address] [place] Eosinophils (Bld) [#/Vol] 0.66 10*3/uL High <0.46 [facility] Comment on above: Order Comment: Speci men Type: BLOOD SPECIMENOrdering Facility: [facility] Address: [address] [place] [address] Performed By: #### 5 7021-8 ####[facility] LABORATORYCLIA [id number] [address] STATES [facility] Eosinophils/100 WBC (Bld) 9.3 % Normal [facility] Comment on above: Order Comment: Speci men Type: BLOOD SPECIMENOrdering Facility: [facility] Address: [address] [place] [address] Performed By: #### 5 7021-8 ####[facility] LABORATORYCLIA [id number] [address] [place] Erythrocyte distribution width (RBC) [Ratio] 13.2 % Normal 11.5-15.0 [facility] Comment on above: Order Comment: Speci men Type: BLOOD SPECIMENOrdering Facility: [facility] Address: [address] [place] [address] Performed By: #### 5 7021-8 ####[facility] LABORATORYCLIA [id number] [address] [place] Hematocrit (Bld) [Volume fraction] 30.7 % Low 39.0-51.0 [facility] Comment on above: Order Comment: Speci men Type: BLOOD SPECIMENOrdering Facility: [facility] Address: [address] [place] [address] Performed By: #### 5 7021-8 ####[facility] LABORATORYCLIA [id number] [address] [place] Hemoglobin (Bld) [Mass/Vol] 9.7 g/dL Low 13.0-17.0 [facility] Comment on above: Order Comment: Speci men Type: BLOOD SPECIMENOrdering Facility: [facility] Address: [address] [place] [address] Performed By: #### 5 7021-8 ####[facility]ORATORYCLIA [id number] [address] [place] Immature granulocytes (Bld) [#/Vol] 10*3/uL Normal <0.10 [facility] Comment on above: Order Comment: Speci men Type: BLOOD SPECIMENOrdering Facility: [facility] Address: [address] [place] [address] Performed By: #### 5 7021-8 ####[facility] LABORATORYCLIA [id number] [address] STATES [facility] Immature granulocytes/100 WBC (Bld) 0.3 % Normal [facility] Comment on above: Order Comment: Speci men Type: BLOOD SPECIMENOrdering Facility: [facility] Address: [address] [place] [address] Performed By: #### 5 7021-8 ####[facility] LABORATORYCLIA [id number] [address] [place] Lymphocytes (Bld) [#/Vol] 1.53 10*3/uL Normal 1.00-4.00 [facility] Comment on above: Order Comment: Speci men Type: BLOOD SPECIMENOrdering Facility: [facility] Address: [address] [place] [address] Performed By: #### 5 7021-8 ####[facility] LABORATORYCLIA [id number] [address] Lymphocytes/100 WBC (Bld) 21.6 % Normal [facility] Comment on above: Order Comment: Speci men Type: BLOOD SPECIMENOrdering Facility: [facility] Address: [address] [place] [address] Performed By: #### 5 7021-8 ####[facility] LABORATORYCLIA [id number] [address] [place] MCH (RBC) [Entitic mass] 30.3 pg Normal 26.0-34.0 [facility] Comment on above: Order Comment: Speci men Type: BLOOD SPECIMENOrdering Facility: [facility] Address: [address] [place] [address] Performed By: #### 5 7021-8 ####[facility] LABORATORYCLIA [id number] [address] [place] [facility] MCHC (RBC) [Mass/Vol] 31.6 g/dL Normal 30.5-36.0 [facility] Comment on above: Order Comment: Speci men Type: BLOOD SPECIMENOrdering Facility: [facility] Address: [address] [place] [address] Performed By: #### 5 7021-8 ####[facility] LABORATORYCLIA [id number] [address] [place] MCV (RBC) [Entitic vol] 95.9 fL Normal 80.0-100.0 [facility] Comment on above: Order Comment: Speci men Type: BLOOD SPECIMENOrdering Facility: [facility] Address: [address] [place] [address] Performed By: #### 5 7021-8 ####[facility] LABORATORYCLIA [id number] [address] [place] Monocytes (Bld) [#/Vol] 0.74 10*3/uL Normal <0.87 [facility] Comment on above: Order Comment: Speci men Type: BLOOD SPECIMENOrdering Facility: [facility] Address: [address] [place] [address] Performed By: #### 5 7021-8 ####[facility] LABORATORYCLIA [id number] [address] Monocytes/100 WBC (Bld) 10.5 % Normal [facility] Comment on above: Order Comment: Speci men Type: BLOOD SPECIMENOrdering Facility: [facility] Address: [address] [place] [address] Performed By: #### 5 7021-8 ####[facility] LABORATORYCLIA [id number] [address] [place] Neutrophils (Bld) [#/Vol] 4.03 10*3/uL Normal 1.45-7.50 [facility] Comment on above: Order Comment: Speci men Type: BLOOD SPECIMENOrdering Facility: [facility] Address: [address] [place] [address] Performed By: #### 5 7021-8 ####[facility] LABORATORYCLIA [id number] [address] Neutrophils/100 WBC (Bld) 57.0 % Normal [facility] Comment on above: Order Comment: Speci men Type: BLOOD SPECIMENOrdering Facility: [facility] Address: [address] [place] [address] Performed By: #### 5 7021-8 ####[facility] LABORATORYCLIA [id number] [address] Nucleated RBC (Bld) [#/Vol] 10*3/uL Normal <0.01 [facility] Comment on above: Order Comment: Speci men Type: BLOOD SPECIMENOrdering Facility: [facility] Address: [address] [place] [address] Performed By: #### 5 7021-8 ####[facility] LABORATORYCLIA [id number] [address] Nucleated RBC/100 WBC (Bld) [Ratio] 0.0 /100 WBC Normal [facility] Comment on above: Order Comment: Speci men Type: BLOOD SPECIMENOrdering Facility: [facility] Address: [address] [place] [address] Performed By: #### 5 7021-8 ####[facility] LABORATORYCLIA [id number] [address] Platelet mean volume (Bld) [Entitic vol] 10.3 fL Normal 9.0-12.7 [facility] Comment on above: Order Comment: Speci men Type: BLOOD SPECIMENOrdering Facility: [facility] Address: [address] [place] [address] Performed By: #### 5 7021-8 ####[facility] LABORATORYCLIA [id number] [address] [place] Platelets (Bld) [#/Vol] 172 10*3/uL Normal 150-400 [facility] Comment on above: Order Comment: Speci men Type: BLOOD SPECIMENOrdering Facility: [facility] Address: [address] [place] [address] Performed By: #### 5 7021-8 ####[facility] LABORATORYCLIA [id number] [address] OF [facility] RBC (Bld) [#/Vol] 3.20 10*6/uL Low 4.20-6.00 [facility] Comment on above: Order Comment: Speci men Type: BLOOD SPECIMENOrdering Facility: [facility] Address: [address] [place] [address] Performed By: #### 5 7021-8 ####[facility] LABORATORYCLIA [id number] [address] WBC (Bld) [#/Vol] 7.07 10*3/uL Normal 3.70-11.00 [facility] Comment on above: Order Comment: Speci men Type: BLOOD SPECIMENOrdering Facility: [facility] Address: [address] [place] [address] Performed By: #### 5 7021-8 ####[facility] LABORATORYCLIA [id number] [address] CNOVon 10-12-2024 CNOV Office Visit (ENAGST ) JAY BARBER ([id number]) 1995 M Date Time Provider Department 10/12/24 2:00 PM STEPHIE RAMIREZ During your visit today, we recorded the following information about you: Blood pressure Weight Height 136/80 39.8 kg 1.575 m Stephie Ramirez APRN.[employer]AD[employer]ER 10/14/2024 11:32 AM Addendum Subjective Date of encounter: 10/12/2024 Jay Barber (1995), is a 29 year old male who presents for Diabetes [...] 10/2023: 6.4%, 01/2024: 6.3%, 03/2024: 6.1%, 07/2024: 6.2%, 10/2024: 6.3% Thyroid Function Testin10/2013: TSH 2.29 (0.358-3.740), free [...] 03/2024: Creatinine 1.37 eGFR 71, 03/2024: Creatinine 1.02, 10/2024: Creatinine 1.3 eGFR 75 Urine for Microalbumin:10/2013: Microalbumin:Creatini ne ratio ok,12/2015: microalbumin : creatinine ratio ok, 08/2017: Microalbumin:Creatini ne Ratio ok, 10/2018: Microalbumin:Creatini ne Ratio 535, 01/03/2020: Microalbumin:Creatini ne Ratio 650, 01/2021: Microalbumin:Creatini ne Ratio 361. Improved but above goal. Jay states he has used lisinopril in the past but this increased his potassium too much and it was discontinued. He will inquire further with his CF providers about losartan. I advised him to make an appointment with nephrology as we had previously discussed., 03/19/2021: Microalbumin:Creatini ne Ratio 1220, 08/2021: still hasn't made appointment with kidney specialist, stressed the importance of this to prevent further kidney damage., 10/2022: prot/creat ratio in the medical center, making appointment with nephrology, 07/2023: prot/creat ratio in the medical center Lipid Profile:10/2013: TC 111, HDL 42, LDL [...] results in care everywhere, 01/2020: labs in [facility], 07/2020; Alkaline Phosphatase 725 (45-117), ALT 77 (16-61), AST 163 (15-37), 12/2020: results in care everywhere., 03/2021: results In care everywhere, 12/2021: Alkaline Phosphatase 918 (38-113), bone percent 13.9%, liver percent 86.1 , 12/2022: liver function monitored by CF providers, 03/2023: in the medical center, 08/2023: LFTS in the medical center, 10/2023: LFTS in the medical center, 03/2024: liver test in the medical center, 10/2024: liver in the medical center Dilated Eye Exam: Patient educated to have ophthalmology visits at least once a year. 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 08/2013: New patient visit for Cystic Fibrosis related Diabetes [facility]'s office visit. [...] patients CFRD only. self monitoring blood glucose data: see dexcom report. Average 14 day SG 177 predicted gmi 7.5%, 57% TIR 2% low range. Occasional post meal elevations. Occasional missed dosages per patient but significan (more content not included)... Normal [facility] Comprehensive metabolic 2000 panelon 10-12-2024 Albumin [Mass/Vol] 2.4 g/dL Low 3.9-4.9 [facility] Comment on above: Order Comment: Kanu sainz Type: BLOOD SPECIMEN [facility] Facility[facility] Address: [address] [place] [address] Performed By: #### 2 4323-8, 3015-3, #### [facility] CLIA [id number] [address] [place] [facility] ALP [Catalytic activity/Vol] 997 U/L High 38-113 [facility] Comment on above: Order Comment: Paruli alistair Type: BLOOD SPECIMEN [facility]ing Facility: [facility] Address: [address] [place] [address] Performed By: #### 2 4323-8, 3, #### [facility] CLIA [id number] [address] OF [facility] ALT With P-5'-P [Catalytic activity/Vol] 53 U/L Normal 10-54 [facility] Comment on above: Order Comment: Paruli alistair Type: BLOOD SPECIMEN [facility]ing Facility: [facility] Address: [address] [place] [address] Performed By: #### 2 4323-8, 3, #### [facility] CLIA [id number] [address] Anion gap [Moles/Vol] 6 mmol/L Low 8-15 [facility] Comment on above: Order Comment: Speci men Type: BLOOD SPECIMEN Ordering Facility: [facility] Address: [address] [place] [address] Performed By: #### 2 4323-8, 3, #### [facility] CLIA [id number] [address] [place] AST With P-5'-P [Catalytic activity/Vol] 82 U/L High 14-40 [facility] Comment on above: Order Comment: Speci men Type: BLOOD SPECIMEN Ordering Facility: [facility] Address: [address] [place] [address] Performed By: #### 2 4323-8, 3, #### [facility] CLIA [id number] [address] [place] Bilirubin [Mass/Vol] 0.5 mg/dL Normal 0.2-1.3 [facility] Comment on above: Order Comment: Speci men Type: BLOOD SPECIMEN [facility]ing Facility: [facility] Address: [address] [place] [address] Performed By: #### 2 4323-8, 3016-01, #### [facility] CLIA [id number] [address] [place] Calcium [Mass/Vol] 8.4 mg/dL Low 8.5-10.2 [facility] Comment on above: Order Comment: Speci men Type: BLOOD SPECIMEN Ordering Facility: [facility] Address: [address] [place] [address] Performed By: #### 2 4323-8, 3016-01, #### [facility] CLIA [id number] [address] [place] [address] [place] Chloride [Moles/Vol] 106 mmol/L Normal 98-107 [facility] Comment on above: Order Comment: Speci men Type: BLOOD SPECIMEN Ordering Facility: [facility] Address: [address] [place] [address] Performed By: #### 2 4323-8, 3, #### [facility] CLIA [id number] [address] [place] [address] [place] CO2 [Moles/Vol] 24 mmol/L Normal 22-30 [facility] Comment on above: Order Comment: Speci men Type: BLOOD SPECIMEN [facility]ing Facility: [facility] Address: [address] [place] [address] Performed By: #### 2 4323-8, 3, #### [facility] CLIA [id number] [address] [place] Creatinine [Mass/Vol] 1.24 mg/dL High 0.73-1.22 [facility] Comment on above: Order Comment: Specyolanda men Type: BLOOD SPECIMEN Ordering Facility: [facility] Address: [address] [place] [address] Performed By: #### 2 4323-8, 3016-01, #### [facility] CLIA [id number] [address] Creatinine and Glomerular filtration rate.predicted panel (S/P/Bld) 80 mL/min/1.73m??? Normal >=60 [facility] Comment on above: Order Comment: Specyolanda sainz Type: BLOOD SPECIMEN Ordering Facility: [facility] Address: [address] [place] [address] Result Comment: Janeth mated Glomerular Filtration Rate [...] actual GFR. Performed By: #### 2 4323-8, 3015-3, #### [facility] CLIA [id number] [address] [place] Glucose [Mass/Vol] 101 mg/dL High 74-99 [facility] Comment on above: Order Comment: Speci men Type: BLOOD SPECIMEN Ordering Facility: [facility] Address: [address] [place] [address] Result Comment: The [place] [employer] Association (ADA) provides guidance for cutoff [...] Standards of Medical Care in Diabetes 2016, [place] [employer]. Diabetes Care. 2016.39(Suppl 1). Performed By: #### 2 4323-8, 3016-01, #### [facility] CLIA [id number] [address] [place] [address] [place] Potassium [Moles/Vol] 5.4 mmol/L High 3.7-5.1 [facility] Comment on above: Order Comment: Speci men Type: BLOOD SPECIMEN Ordering Facility: [facility] Address: [address] [place] [address] Performed By: #### 2 4323-8, 3016-01, #### [facility] CLIA [id number] [address] [place] [address] [place] Protein [Mass/Vol] 7.4 g/dL Normal 6.3-8.0 [facility] Comment on above: Order Comment: Speci men Type: BLOOD SPECIMEN Ordering Facility: [facility] Address: [address] [place] [address] Performed By: #### 2 4323-8, 3016-01, #### [facility] CLIA [id number] [address] [place] [address] [place] Sodium [Moles/Vol] 136 mmol/L Normal 136-144 [facility] Comment on above: Order Comment: Speci men Type: BLOOD SPECIMEN Ordering Facility: [facility] Address: [address] [place] [address] Performed By: #### 2 4323-8, 3016-3, 83397-9 #### [facility] CLIA [id number] [address] [place] [id number] [place] [facility] Urea nitrogen [Mass/Vol] 22 mg/dL Normal 9-24 [facility] Comment on above: Order Comment: Speci men Type: BLOOD SPECIMEN Ordering Facility: [facility] Address: [address] [place] [address] Performed By: #### 2 4323-8, 3016-3, 90832-6 #### [facility] CLIA [id number] [address] [place] [id number] [facility] HEMOGLOBIN A1C (POC)on 10-12 HbA1c (Bld) [Mass fraction] 6.3 % Abnormal 4.3 - 5.6 % [facility] Comment on above: Location:[facility], [address] [place] [address] Point of care (POC) Hemoglobin A1c (HGBA1C) [...] specific diabetes management situations: The POC device care director provides a normal range of 4.2% to 6.5% for the HGBA1C POC test. However, the [place] [employer] guidelines indicate that patients with [...] Interpretation and review of laboratory results Abnormal [facility] Magnesium SerPl-mCncon 10-12 Magnesium [Mass/Vol] 1.8 mg/dL Normal 1.7-2.3 [facility] Comment on above: Order Comment: Speci men Type: BLOOD SPECIMEN Ordering Facility: [facility] Address: [facility] [place] [place] [id number] Performed By: #### 2 4323-8, 3016-3, #### [facility] CLIA [id number] [address] [place] [id number] [facility] THYROID STIMULATING HORMONEo n 10-12-2024 TSH Qn 1.810 m[IU]/L [facility] TSH Qnon 10-12-2024 Interpretation and review of laboratory results Normal [facility] TSH SerPl-aCncon 10-12-2024 TSH Qn 1.810 m[IU]/L Normal 0.270-4.200 [facility] Comment on above: Order Comment: Specyolanda sainz Type: BLOOD SPECIMENOrdering Facility: [facility] Address: [facility] [address] [place] [id number] Performed By: #### 2 4323-8, 3, ####[facility]ORATORYCLIA [id number] [address] [place] [facility] SPIROMETRY BASELINE ONLYon 1 FEF25% PRE (L/S) 0.38 L/S [facility] KIB13-43% LLN (L/S) 2.24 L/S [facility] BUA94-58% PRE (L/S) 0.17 L/S [place] [facility] SDR51-96% PREDICTED (L/S) 3.63 L/S [facility] FEF75% LLN (L/S) 0.74 [facility] FEF75% PRE (L/S0 0.10 L[facility] FEF75% PREDICTED (L/S) 1.43 L/S [facility] FEF75% ULN (L/S) 2.56 L/S [facility] FET PRE (S) 15.77 S [facility] FEV1 LLN (L) 2.38 L [facility] FEV1 PRE (L) 0.68 L [facility] FEV1 PREDICTED (L) 3.07 L [facility] FEV1 ULN (L) 3.72 L [facility] FEV1/FVC LLN (%) 75 % [facility] FEV1/FVC PRE (%) 31 % [facility] FEV1/FVC PREDICTED (%) 85 % [facility] FVC LLN (L) 2.78 L [facility] FVC PRE (L) 2.20 L [facility] FVC PREDICTED (L) 3.58 L [facility] FVC ULN (L) 4.39 L [facility] PEF LLN (L/S) 6.69 L/S [facility] PEF PRE (L/S) 3.44 L/S [facility] PEF ULN (L/S) 10.27 L/S [facility] [facility] [address] [place] [address] Test Date: 2024-09-09 Pat Name: JAY BARBER Department: Room: Gender: Male 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 Start of test and EOFE criteria met. //SRB IMPRESSION: Spirometry indicates obstruction. The severity of obstruction cannot be graded due to the reduced FVC. The reduced FVC may be due to obstruction, however, concomitant restriction cannot be excluded, recommend lung volumes for definitive determination. Electronically Signed On 09-09-2024 17:07:39 EDT by Elbert Martin MD ID: [id number] Name: JAY BARBER Race: White Ht: 61.61 in Wt: 84.44 lbs Age: 29 Gender: Male : 1995 Dx: Cystic fibrosis_ Smoking Hx: Non-smoker Doctor: SALLY SCHNEIDER Test Date: 09/09/2024 Site: Tech: Nikkie Wagner PRE-BRONCH POST-BRONCH Pre LLN Pred ULN %Pred Post %Pred %Chg SPIROMETRY FVC (L) 2.20 2.78 3.58 4.39 61 FEV1 (L) 0.68 2.38 3.07 3.72 22 FEV1/FVC 0.31 0.75 0.85 0.94 36 PEF L/s (L/sec) 3.44 6.69 8.48 10.27 40 FEF50 (L/sec) 0.19 1.90 4.02 6.15 4 FIF50 (L/sec) 2.14 FEF50/FIF50 0.09 90-100 FIVC (L) 2.01 SPY00-74 (L/sec) 0.17 2.24 3.63 5.36 4 Time (sec) 15.77 FET PEF (sec) 0.05 MACIEL (L) 0.03 Vol Extrap % (%) 2 Comments: Current ATS/ERS acceptability and repeatability standards for spirometry met. Start of test and EOFE criteria met. //SRB PULMONARY FUNCTION LAB [facility] CBC W/Diff, Automatedon 10-0 Absolute Neut Normal 2.0-7.7 [facility] Comment on above: Result Comment: Canc elled via OM: Order cancelled - Patient discharged Performed By: #### L 100.0100, L500.3400, L500.4050 #### [facility] [address] [facility] [address] HCT Normal 40-54 [facility] Comment on above: Result Comment: Canc elled via OM: Order cancelled - Patient discharged Performed By: #### L 100.0100, L500.3400, L500.4050 #### [facility] [address] [facility] [address] HGB Normal 13.0-16.5 [facility] Comment on above: Result Comment: Canc elled via OM: Order cancelled - Patient discharged Performed By: #### L 100.0100, L500.3400, L500.4050 #### [facility] [address] [place], [address] MCH Normal 27.0-32.0 [facility] Comment on above: Result Comment: Canc elled via OM: Order cancelled - Patient discharged Performed By: #### L 100.0100, L500.3400, L500.4050 #### [facility] [address] [place], [address] MCHC Normal 32-36 [facility] Comment on above: Result Comment: Canc elled via OM: Order cancelled - Patient discharged Performed By: #### L 100.0100, L500.3400, L500.4050 #### [facility] [address] [place], [address] MCV Normal 80-94 [facility] Comment on above: Result Comment: Canc elled via OM: Order cancelled - Patient discharged Performed By: #### L 100.0100, L500.3400, L500.4050 #### [facility] [address] [place], [address] NEUT% Normal 47-70 [facility] Comment on above: Result Comment: Canc elled via OM: Order cancelled - Patient discharged Performed By: #### L 100.0100, L500.3400, L500.4050 #### [facility] [address] [place], [address] PLT Normal 150-450 [facility] Comment on above: Result Comment: Canc elled via OM: Order cancelled - Patient discharged Performed By: #### L 100.0100, L500.3400, L500.4050 #### [facility] [address] [place], [address] RBC Normal 4.6-6.2 [facility] Comment on above: Result Comment: Canc elled via OM: Order cancelled - Patient discharged Performed By: #### L 100.0100, L500.3400, L500.4050 #### [facility] [address] [place], [address] RDW CV Normal 11.6-14.6 [facility] Comment on above: Result Comment: Canc elled via OM: Order cancelled - Patient discharged Performed By: #### L 100.0100, L500.3400, L500.4050 #### [facility] [address] [place], [address] RDW SD Normal 35.1-43.9 [facility] Comment on above: Result Comment: Canc elled via OM: Order cancelled - Patient discharged Performed By: #### L 100.0100, L500.3400, L500.4050 #### [facility] [address] [place], [address] WBC Normal 4.4-11.0 [facility] Comment on above: Result Comment: Canc elled via OM: Order cancelled - Patient discharged Performed By: #### L 100.0100, L500.3400, L500.4050 #### [facility] [address] [place], [address] Comprehensive Metabolic Prof ilon 09-03-2024 ALB Normal 3.2-5.0 [facility] Comment on above: Result Comment: Canc elled via OM: Order cancelled - Patient discharged Performed By: #### L 100.0100, L500.3400, L500.4050 #### [facility] [address] [place], [address] ALK P Normal 45-117 [facility] Comment on above: Result Comment: Canc elled via OM: Order cancelled - Patient discharged Performed By: #### L 100.0100, L500.3400, L500.4050 #### [facility] [address] [place], [address] ALT Normal 16-61 [facility] Comment on above: Result Comment: Canc elled via OM: Order cancelled - Patient discharged Performed By: #### L 100.0100, L500.3400, L500.4050 #### [facility] [address] [place], [address] AST Normal 15-37 [facility] Comment on above: Result Comment: Canc elled via OM: Order cancelled - Patient discharged Performed By: #### L 100.0100, L500.3400, L500.4050 #### [facility] [address] [place], [address] BUN Normal 7-18 [facility] Comment on above: Result Comment: Canc elled via OM: Order cancelled - Patient discharged Performed By: #### L 100.0100, L500.3400, L500.4050 #### [facility] [address] [place], [address] BUN/CRE Normal 10-20 [facility] Comment on above: Result Comment: Canc elled via OM: Order cancelled - Patient discharged Performed By: #### L 100.0100, L500.3400, L500.4050 #### [facility] [address] [place], [address] CA,Total Normal 8.5-10.1 [facility] Comment on above: Result Comment: Canc elled via OM: Order cancelled - Patient discharged Performed By: #### L 100.0100, L500.3400, L500.4050 #### [facility] [address] [place], [address] CL Normal 98-107 [facility] Comment on above: Result Comment: Canc elled via OM: Order cancelled - Patient discharged Performed By: #### L 100.0100, L500.3400, L500.4050 #### [facility] [address] [place], [address] CO2 Normal 21.0-32.0 [facility] Comment on above: Result Comment: Canc elled via OM: Order cancelled - Patient discharged Performed By: #### L 100.0100, L500.3400, L500.4050 #### [facility] [address] [place], [address] CREAT,SERUM Normal 0.70-1.30 [facility] Comment on above: Result Comment: Canc elled via OM: Order cancelled - Patient discharged Performed By: #### L 100.0100, L500.3400, L500.4050 #### [facility] [address] [place], [address] EST GFR Normal >60 [facility] Comment on above: Result Comment: Canc elled via OM: Order cancelled - Patient discharged Performed By: #### L 100.0100, L500.3400, L500.4050 #### [facility] [address] [place], [address] EST GFR - AA Normal >60 [facility] Comment on above: Result Comment: Canc elled via OM: Order cancelled - Patient discharged Performed By: #### L 100.0100, L500.3400, L500.4050 #### [facility] [address] [place], [address] GAP Normal 5-15 [facility] Comment on above: Result Comment: Canc elled via OM: Order cancelled - Patient discharged Performed By: #### L 100.0100, L500.3400, L500.4050 #### [facility] [address] [place], [address] GLU Normal 74-106 [facility] Comment on above: Result Comment: Canc elled via OM: Order cancelled - Patient discharged Performed By: #### L 100.0100, L500.3400, L500.4050 #### [facility] [address] [place], [address] Potassium Normal 3.5-5.1 [facility] Comment on above: Result Comment: Canc elled via OM: Order cancelled - Patient discharged Performed By: #### L 100.0100, L500.3400, L500.4050 #### [facility] [address] [place], [address] T BILI Normal 0.20-1.00 [facility] Comment on above: Result Comment: Canc elled via OM: Order cancelled - Patient discharged Performed By: #### L 100.0100, L500.3400, L500.4050 #### [facility] [address] [place], [address] T PROT Normal 6.4-8.2 [facility] Comment on above: Result Comment: Canc elled via OM: Order cancelled - Patient discharged Performed By: #### L 100.0100, L500.3400, L500.4050 #### [facility] [address] [place], [address] Comprehensive Metabolic Profil Normal 136-145 [facility] Comment on above: Result Comment: Canc elled via OM: Order cancelled - Patient discharged Performed By: #### L 100.0100, L500.3400, L500.4050 #### [facility] [address] [place], [address] Basic Metabolic Profile (BMP )on 09-02-2024 BUN/CRE 17.4 RATIO Normal 10-20 [facility] Comment on above: Performed By: #### L 100.0100, L500.3400, L500.4050 #### [facility] [address] [place], [address] CA,Total 7.7 mg/dL Low 8.5-10.1 [facility] Comment on above: Performed By: #### L 100.0100, L500.3400, L500.4050 #### [facility] [address] [place], [address] Chloride [Moles/Vol] 108 mmol/L High 98-107 [facility] Comment on above: Performed By: #### L 100.0100, L500.3400, L500.4050 #### [facility] [address] [place], [address] CO2 [Moles/Vol] 27.0 mmol/L Normal 21.0-32.0 [facility] Comment on above: Performed By: #### L 100.0100, L500.3400, L500.4050 #### [facility] [address] [place], [address] Creatinine [Mass/Vol] 1.09 mg/dL Normal 0.70-1.30 [facility] Comment on above: Result Comment: The validity of the calculated GFR GFRAA in patients over 70 years has not been determined. Clinical correlation is essential. Performed By: #### L 100.0100, L500.3400, L500.4050 #### [facility] [address] [place], [address] ECRCL 66.39 ml/min Normal [facility] Comment on above: Performed By: #### L 100.0100, L500.3400, L500.4050 #### [facility] [address] [place], [address] EST GFR - AA 101 mL/min Normal >60 [facility] Comment on above: Result Comment: Afri can Burmese GFR Calc Performed By: #### L 100.0100, L500.3400, L500.4050 #### [facility] [address] [place], [address] GAP 2 Low 5-15 [facility] Comment on above: Performed By: #### L 100.0100, L500.3400, L500.4050 #### [facility] [address] [place], [address] GFR/1.73 sq M.predicted among non-blacks MDRD (S/P/Bld) [Vol rate/Area] 84 mL/min/{1.73_m2} Normal >60 [facility] Comment on above: Result Comment: Non- GFR Calc Performed By: #### L 100.0100, L500.3400, L500.4050 #### [facility] [address] [place], [address] Glucose [Mass/Vol] 102 mg/dL Normal 74-106 [facility] Comment on above: Result Comment: Fast ing Glucose result from 100 to 125 mg/dL suggests IMPAIRED HOMEOSTASIS per A.D.A. criteria. Performed By: #### L 100.0100, L500.3400, L500.4050 #### [facility] [address] [place], [address] Potassium [Moles/Vol] 4.7 mmol/L Normal 3.5-5.1 [facility] Comment on above: Performed By: #### L 100.0100, L500.3400, L500.4050 #### [facility] [address] [place], [address] Sodium [Moles/Vol] 137 mmol/L Normal 136-145 [facility] Comment on above: Performed By: #### L 100.0100, L500.3400, L500.4050 #### [facility] [address] [place], [address] Urea nitrogen [Mass/Vol] 19 mg/dL High 7-18 [facility] Comment on above: Performed By: #### L 100.0100, L500.3400, L500.4050 #### [facility] [address] [place], [address] Bedside Glucoseon 09-02-2024 FINGERSTICK GLU 161 mg/dL High 74-106 [facility] Comment on above: Result Comment: PO GEMENT OF PATIENT CARE PER NURSING PROTOCOL Performed By: #### L 501.080 #### [facility] [address] [place], [address] FINGERSTICK GLU 139 mg/dL High 74-106 [facility] Comment on above: Result Comment: PO GEMENT OF PATIENT CARE PER NURSING PROTOCOL Performed By: #### L 100.0100, L500.3400, L500.4050 #### [facility] [address] [place], [address] FINGERSTICK GLU 112 mg/dL High 74-106 [facility] Comment on above: Result Comment: PO GEMENT OF PATIENT CARE PER NURSING PROTOCOL Performed By: #### L 100.0100, L500.3400, L500.4050 #### [facility] [address] [place], [address] Discharge Instructionon 10-0 Discharge Instruction [facility] Medical Records Department [address] [place] [address] Instructions for Home/Discharge Instructions 09/02/24 1014 MR#: [id number] Acct: [id number] Name: JAY BARBER Rep #: [id number] : 1995 29 From: Anahi Wilder MD PCP: Care Physician,No Primary Status:ADM IN Discharge Instructions Diet Discharge Diet: Low fat / Low cholesterol Activity Discharge Activity: Return to Normal Activity Weight Bearing Status: Weight bearing as tolerated Dressing / Incision Call your doctor if you observe: Fever of 101 or Higher, Shortness of breath, Dizziness, Swelling in the ankles and Chest pain Follow Up Care Test Results: Test results from this visit will be discussed in further detail at your follow-up appointment, if applicable. Discharge Plan Admission Admit Date/Time: 09/01/24 14:44 Primary Reason for Your Visit: hyperkalemia Attending Provider: Anahi Wilder Primary Care Provider: Care Physician,No Primary Consulting Providers: Niko Cook Instructions Patient Instructions: Hyperkalemia Dc, Hyperkalemia Ch Dc Additional Instructions / Restrictions: see PCP to get repeat BMP within 2-3 days to monitor potassium levels Discharge Orders/Prescriptions Prescriptions: Continued jewpbf-glgfavjl-smqyf se 1 EACH capsule,delayed release(DR/EC) 2 - 3 cap PO TIDCM Rx Instructions: TAKE 3 CAPS WITH MEALS AND 2 CAPS WITH SNACKS elexacaftor-tezacafto r-ivacaft 1 EACH tablets, sequential 2 ea PO DAILY Patient Comments: PT STATES ONLY TAKES THE 2 MORNING TABS AND SKIPS THE EVENING DOSE. tobramycin with nebulizer 300 MG/5 ML solution for nebulization 300 mg IH BID insulin lispro 100 UNIT/ML insulin pen See Protocol SQ TIDCM Protocol: 2. Sliding Scale Insulin Low-Med Dosing Condition: 150-209 mg/dl = 1 unit Condition: 210-269 mg/dl = 2 units Condition: 270-329 mg/dl = 3 units Condition: 330-389 mg/dl = 4 units Condition: 390-449 mg/dl = 5 units Condition: Greater than 449 call physician Protocol Text: - Use for Total Daily Dose of Insulin 28-36 units - Average size patients LOW MEDIUM DOSING ALGORITHM Patient Comments: carb scale per pt insulin glargine 100 UNIT/ML insulin pen 8 unit SQ QHS carvedilol 25 mg tablet 25 mg PO BID (DME) PrestodiagTouch Verio test strips Strip 1 strip MISCELLANEOUS TID diphenhydramine HCl 50 mg/mL solution 50 mg IV Q12H Patient Comments: Red romel syndrome albuterol sulfate [Ventolin HFA] 90 mcg/actuation HFA aerosol inhaler 2 puff INHALATION Q4H PRN PRN (Reason: wheezing) (DME) Dexcom G7 Sensor Device MISCELLANEOUS Patient Comments: [NO ORIGINAL SIG] Pulmozyme 1 mg/mL solution 2.5 mg inhalation DAILY ipratropium-albuterol 0.5 mg-3 mg(2.5 mg base)/3 mL solution for nebulization 3 ml inhalation Q4H PRN PRN (Reason: wheezing) meropenem 1 gram recon soln 1 g IV Q12H pantoprazole 40 mg tablet,delayed release (DR/EC) 40 mg PO BID sodium chloride 0.9 % Parenteral Solution 1 ea IV Q12H PRN polyethylene glycol 3350 17 gram/dose powder 17 g PO DAILY PRN (Reason: constipation) vancomycin 500 mg recon soln 300 mg PO Q12H Patient Comments: per pt bottle, 300mg q12 hours Referrals / Follow Up: Lenora Sutton DO [Non-Staff] - Within 1 Week Care Physician,No Primary [Primary Care Provider] - Disposition Disposition (needs filled in before D/C Order can be placed): Home, Self Care 09/02/24 1014 Anahi Wilder MD CC: Dr. Niko Cook DO; No Primary Care Physician Signed [facility] 12 Lead EKGon 09-01-2024 12 Lead EKG [facility] Cardiovascular Services [address] [place] [address] 12 Lead EKG 08/31/24 1349 MR#: [id number] Acct: [id number] Name: JAY BARBER Rep #: [id number] : 1995 29 From: Rosalino Bertrand MD Attending Dr: Dr. Anahi Wilder MD Status: TODD Rapp IN Ordering Dr: Niko Cook DO Date: 09/01/24 Location: [facility] Sex: M C Admitted: 09/01/24 Test Reason : HIGH K Blood Pressure : / mmHG Vent. Rate : 086 BPM Atrial Rate : 086 BPM P-R Int : 168 ms QRS Dur : 084 ms QT Int : 366 ms P-R-T Axes : 079 086 084 degrees QTc Int : 437 ms Normal sinus rhythm Normal ECG Confirmed by CORDELL RUEDA, ROSALINO ([id number]), slot editor BE FARAH ([id number]) on 09/02/2024 1:20:05 PM Referred By: Confirmed By:ROSALINO BERTRAND MD 09/02/24 1320 Date Rosalino Bertrand MD CC: Dr. Niko Cook DO; Dr. Anahi Wilder MD; No Primary Care Physician Signed [facility] Basic Metabolic Profile (BMP )on 09-01-2024 BUN/CRE 11.1 RATIO Normal 09-19 [facility] Comment on above: Performed By: #### L 100.0100, L500.3400, L500.4050 #### [facility] [address] [place], [address] CA,Total 8.0 mg/dL Low 8.5-10.1 [facility] Comment on above: Performed By: #### L 100.0100, L500.3400, L500.4050 #### [facility] [address] [place], [address] Chloride [Moles/Vol] 110 mmol/L High 98-107 [facility] Comment on above: Performed By: #### L 100.0100, L500.3400, L500.4050 #### [facility] [address] [place], [address] CO2 [Moles/Vol] 27.0 mmol/L Normal 21.0-32.0 [facility] Comment on above: Performed By: #### L 100.0100, L500.3400, L500.4050 #### [facility] [address] [place], [address] Creatinine [Mass/Vol] 1.08 mg/dL Normal 0.70-1.30 [facility] Comment on above: Result Comment: The validity of the calculated GFR GFRAA in patients over 70 years has not been determined. Clinical correlation is essential. Performed By: #### L 100.0100, L500.3400, L500.4050 #### [facility] [address] [place], [address] ECRCL 67.00 ml/min Normal [facility] Comment on above: Performed By: #### L 100.0100, L500.3400, L500.4050 #### [facility] [address] [place], [address] EST GFR - AA 103 mL/min Normal >60 [facility] Comment on above: Result Comment: Afri can Burmese GFR Calc Performed By: #### L 100.0100, L500.3400, L500.4050 #### [facility] [address] [place], [address] GAP 1 Low 5-15 [facility] Comment on above: Performed By: #### L 100.0100, L500.3400, L500.4050 #### [facility] [address] [place], [address] GFR/1.73 sq M.predicted among non-blacks MDRD (S/P/Bld) [Vol rate/Area] 85 mL/min/{1.73_m2} Normal >60 [facility] Comment on above: Result Comment: Non- GFR Calc Performed By: #### L 100.0100, L500.3400, L500.4050 #### [facility] [address] [place], [address] Glucose [Mass/Vol] 209 mg/dL High 74-106 [facility] Comment on above: Result Comment: Gluc ose result greater than or equal to 200 mg/dL suggests DIABETES MELLITUS per A.D.A. criteria. Performed By: #### L 100.0100, L500.3400, L500.4050 #### [facility] [address] [place], [address] Potassium [Moles/Vol] 4.9 mmol/L Normal 3.5-5.1 [facility] Comment on above: Performed By: #### L 100.0100, L500.3400, L500.4050 #### [facility] [address] [place], [address] Sodium [Moles/Vol] 138 mmol/L Normal 136-145 [facility] Comment on above: Performed By: #### L 100.0100, L500.3400, L500.4050 #### [facility] [address] [place], [address] Urea nitrogen [Mass/Vol] 12 mg/dL Normal 7-18 [facility] Comment on above: Performed By: #### L 100.0100, L500.3400, L500.4050 #### [facility] [address] [place], [address] BUN/CRE 14.4 RATIO Normal 10-20 [facility] Comment on above: Performed By: #### L 100.0100, L500.3400, L500.4050 #### [facility] [address] [place], [address] CA,Total 7.8 mg/dL Low 8.5-10.1 [facility] Comment on above: Performed By: #### L 100.0100, L500.3400, L500.4050 #### [facility] [address] [place], [address] Chloride [Moles/Vol] 114 mmol/L High 98-107 [facility] Comment on above: Performed By: #### L 100.0100, L500.3400, L500.4050 #### [facility] [address] [place], [address] CO2 [Moles/Vol] 22.0 mmol/L Normal 21.0-32.0 [facility] Comment on above: Performed By: #### L 100.0100, L500.3400, L500.4050 #### [facility] [address] [place], [address] Creatinine [Mass/Vol] 0.84 mg/dL Normal 0.70-1.30 [facility] Comment on above: Result Comment: The validity of the calculated GFR GFRAA in patients over 70 years has not been determined. Clinical correlation is essential. Performed By: #### L 100.0100, L500.3400, L500.4050 #### [facility] [address] [place], [address] ECRCL 86.15 ml/min Normal [facility] Comment on above: Performed By: #### L 100.0100, L500.3400, L500.4050 #### [facility] [address] [place], [address] EST GFR - AA 138 mL/min Normal >60 [facility] Comment on above: Result Comment: Afri can Burmese GFR Calc Performed By: #### L 100.0100, L500.3400, L500.4050 #### [facility] [address] [place], [address] GAP 3 Low 5-15 [facility] Comment on above: Performed By: #### L 100.0100, L500.3400, L500.4050 #### [facility] [address] [place], [address] GFR/1.73 sq M.predicted among non-blacks MDRD (S/P/Bld) [Vol rate/Area] 114 mL/min/{1.73_m2} Normal >60 [facility] Comment on above: Result Comment: Non- GFR Calc Performed By: #### L 100.0100, L500.3400, L500.4050 #### [facility] [address] [place], [address] Glucose [Mass/Vol] 119 mg/dL High 74-106 [facility] Comment on above: Result Comment: Fast ing Glucose result from 100 to 125 mg/dL suggests IMPAIRED HOMEOSTASIS per A.D.A. criteria. Performed By: #### L 100.0100, L500.3400, L500.4050 #### [facility] [address] [place], [address] Potassium [Moles/Vol] 5.4 mmol/L High 3.5-5.1 [facility] Comment on above: Performed By: #### L 100.0100, L500.3400, L500.4050 #### [facility] [address] [place], [address] Sodium [Moles/Vol] 138 mmol/L Normal 136-145 [facility] Comment on above: Performed By: #### L 100.0100, L500.3400, L500.4050 #### [facility] [address] [place], [address] Urea nitrogen [Mass/Vol] 12 mg/dL Normal 7-18 [facility] Comment on above: Performed By: #### L 100.0100, L500.3400, L500.4050 #### [facility] [address] [place], [address] Bedside Glucoseon 09-01-2024 FINGERSTICK GLU 161 mg/dL High 74-106 [facility] Comment on above: Result Comment: PO GEMENT OF PATIENT CARE PER NURSING PROTOCOL Performed By: #### L 100.0100, L500.3400, L500.4050 #### [facility] [address] [place], [address] FINGERSTICK GLU 189 mg/dL High 74-106 [facility] Comment on above: Result Comment: PO GEMENT OF PATIENT CARE PER NURSING PROTOCOL Performed By: #### L 501.080 #### [facility] [address] [place], [address] FINGERSTICK GLU 124 mg/dL High 74-106 [facility] Comment on above: Result Comment: PO GEMENT OF PATIENT CARE PER NURSING PROTOCOL Performed By: #### L 501.080 #### [facility] [address] [place], [address] FINGERSTICK GLU 128 mg/dL High 74-106 [facility] Comment on above: Result Comment: PO GEMENT OF PATIENT CARE PER NURSING PROTOCOL Performed By: #### L 100.0100, L500.3400, L500.4050 #### [facility] [address] [place], [address] CTA Chest W/WO Contraston CTA Chest W/WO Contrast [facility] Imaging Services [address] [place], [place] [address] CTA Chest W/WO Contrast MR#: [id number] Acct: [id number] Name: JAY BARBER Rep #: [id number] : 1995 M 29 From: Hang Tillman MD PCP: Care Physician,No Primary Status: ADM IN Study: CTA Chest W/WO Contrast Date of Exam: 09/01/24 Exam# [id number] Ordering Dr: Anahi Wilder MD [id number] STUDY: CTA CHEST REASON FOR EXAM: Male, 29 years old. Possible PE, history of cystic fibrosis RADIATION DOSAGE (If Supplied By Facility): CTDIvol = ( 3.62 ) mGy, DLP = ( 176.30 ) mGycm TECHNIQUE: The examination was performed with the intravenous administration of 75mL Isovue-370. Post-processing of the angiographic images was performed, with multiplanar reformation and 3D reconstruction. Individualized dose optimization techniques were used for this CT. COMPARISON: None. FINDINGS: Suboptimal enhancement of the pulmonary arteries limits evaluation. No large or central filling defects identified. Smaller or more distal filling defects cannot be reliably excluded. Normal thoracic aorta and visualized great vessels. There is no demonstrated aortic dissection. Normal heart and pericardium. Shotty mediastinal lymph nodes. Bilateral hilar adenopathy. Extensive bilateral bronchiectasis. Bilateral lower lobe infiltrates with extensive tree in bud formations. No consolidations. No pleural effusions. Normal chest wall structures. Normal osseous structures. No acute findings in the upper abdomen. Severe pancreatic atrophy. Nodular hepatic margins. Splenomegaly. CT/CTA Chest W/WO Contrast IMPRESSION: Limited examination due to suboptimal enhancement of the pulmonary arteries. No large or central pulmonary emboli identified. Smaller or more distal PE cannot be reliably excluded. Pulmonary changes consistent with cystic fibrosis with superimposed infiltrates at the bilateral lower lobes, probable pneumonia. Electronically Signed: Hang Tillman MD at 19:59 EDT , CC: Dr. Anahi Wilder MD; No Primary Care Physician Environmental Technology Professor: Signed Normal [facility] D-Dimer Quantitative (DVT/PE )on 09-01-2024 D-DIMER QUANT 1.67 FEU/ug/m Invalid Interpretation Code 0.27-0.49 [facility] Comment on above: Result Comment: D-Di arnold ELEVATED (>0.49): Additional studies and clinical assessments are indicated to conclude diagnosis of: Deep Vein Thrombosis (DVT) or Pulmonary Embolism (PE) CRITICAL VALUE CALLED TO EDWARDO MORENO 09/01/24 1719 Andreia Zelaya. RESULTS READ BACK BY SAME. Performed By: #### L 100.0100, L500.3400, L500.4050 #### [facility] [address] [facility] [place], [address] 12 Lead EKGon 08-31-2024 12 Lead EKG [facility] Cardiovascular Services [address] [place] [address] 12 Lead EKG 09/01/24 0542 MR#: [id number] Acct: [id number] Name: JAY BARBER Rep #: [id number] : 1995 29 From: Rosalino Bertrand MD Attending Dr: Dr. Anahi Wilder MD Status: DI S IN Ordering Dr: Brady Bal DO Date: 08/31/24 Location: U Sex: M C Admitted: 09/01/24 Test Reason : AM EKG Blood Pressure : / mmHG Vent. Rate : 117 BPM Atrial Rate : 117 BPM P-R Int : 144 ms QRS Dur : 078 ms QT Int : 326 ms P-R-T Axes : 076 089 079 degrees QTc Int : 454 ms Sinus tachycardia Otherwise normal ECG When compared with ECG of 31-AUG-2024 17:31, MANUAL COMPARISON REQUIRED, DATA IS UNCONFIRMED Confirmed by ROSALINO BERTRAND MD ([id number]), slot editor BE FARAH ([id number]) on 09/02/2024 1:13:35 PM Referred By: Confirmed By:ROSALINO BERTRAND MD 09/02/24 1313 Date Rosalino Bertrand MD CC: Dr. Anahi Wilder MD; Dr. Brady Bal DO; No Primary Care Physician Signed Normal [facility] 12 Lead EKG [facility] Cardiovascular Services [address] [place] [address] 12 Lead EKG 08/31/24 1731 MR#: [id number] Acct: [id number] Name: JAY BARBER Rep #: [id number] : 1995 29 From: Rosalino Bertrand MD Attending Dr: Dr. Anahi Wilder MD Status: DI S IN Ordering Dr: Brady Bal DO Date: 08/31/24 Location: [facility] Sex: M C Admitted: 09/01/24 Test Reason : MED CHANGE/REPEAT Blood Pressure : / mmHG Vent. Rate : 082 BPM Atrial Rate : 082 BPM P-R Int : 172 ms QRS Dur : 086 ms QT Int : 364 ms P-R-T Axes : 070 080 075 degrees QTc Int : 425 ms Normal sinus rhythm Normal ECG Confirmed by ROSALINO BERTRAND MD ([id number]), slot editor BE FARAH ([id number]) on 09/02/2024 1:19:50 PM Referred By: Confirmed By:ROSALINO BERTRAND MD 09/02/24 131 Date Rosalino Bertrand MD CC: Dr. Anahi Wilder MD; Dr. Brady Bal DO; No Primary Care Physician Signed Normal [facility] Basic Metabolic Profile (BMP )on 08-31-2024 BUN/CRE 12.6 RATIO Normal 10-20 [facility] Comment on above: Performed By: #### L 100.0100, L500.3400, L500.4050 #### [facility] [address] [place], [address] CA,Total 8.7 mg/dL Normal 8.5-10.1 [facility] Comment on above: Performed By: #### L 100.0100, L500.3400, L500.4050 #### [facility] [address] [place], [address] Chloride [Moles/Vol] 113 mmol/L High 98-107 [facility] Comment on above: Performed By: #### L 100.0100, L500.3400, L500.4050 #### [facility] [address] [place], [address] CO2 [Moles/Vol] 20.0 mmol/L Low 21.0-32.0 [facility] Comment on above: Performed By: #### L 100.0100, L500.3400, L500.4050 #### [facility] [address] [place], [address] Creatinine [Mass/Vol] 0.95 mg/dL Normal 0.70-1.30 [facility] Comment on above: Result Comment: The validity of the calculated GFR GFRAA in patients over 70 years has not been determined. Clinical correlation is essential. Performed By: #### L 100.0100, L500.3400, L500.4050 #### [facility] [address] [place], [address] ECRCL 65.34 ml/min Normal [facility] Comment on above: Performed By: #### L 100.0100, L500.3400, L500.4050 #### [facility] [address] [place], [address] EST GFR - AA 119 mL/min Normal >60 [facility] Comment on above: Result Comment: Afri can Burmese GFR Calc Performed By: #### L 100.0100, L500.3400, L500.4050 #### [facility] [address] [place], [address] GAP 1 Low 5-15 [facility] Comment on above: Performed By: #### L 100.0100, L500.3400, L500.4050 #### [facility] [address] [place], [address] GFR/1.73 sq M.predicted among non-blacks MDRD (S/P/Bld) [Vol rate/Area] 98 mL/min/{1.73_m2} Normal >60 [facility] Comment on above: Result Comment: Non- GFR Calc Performed By: #### L 100.0100, L500.3400, L500.4050 #### [facility] [address] [place], [address] Glucose [Mass/Vol] 269 mg/dL High 74-106 [facility] Comment on above: Result Comment: Gluc ose result greater than or equal to 200 mg/dL suggests DIABETES MELLITUS per A.D.A. criteria. Performed By: #### L 100.0100, L500.3400, L500.4050 #### [facility] [address] [place], [address] Potassium [Moles/Vol] 5.4 mmol/L High 3.5-5.1 [facility] Comment on above: Performed By: #### L 100.0100, L500.3400, L500.4050 #### [facility] [address] [place], [address] Sodium [Moles/Vol] 134 mmol/L Low 136-145 [facility] Comment on above: Performed By: #### L 100.0100, L500.3400, L500.4050 #### [facility] [address] [place], [address] Urea nitrogen [Mass/Vol] 12 mg/dL Normal 7-18 [facility] Comment on above: Performed By: #### L 100.0100, L500.3400, L500.4050 #### [facility] [address] [place], [address] Bedside Glucoseon 08-31-2024 FINGERSTICK GLU 176 mg/dL High 74-106 [facility] Comment on above: Result Comment: PO MARIJA OF PATIENT CARE PER NURSING PROTOCOL Performed By: #### L 100.0100, L500.3400, L500.4050 #### [facility] [address] [place], [address] FINGERSTICK GLU 25 mg/dL Invalid Interpretation Code 74-106 [facility] Comment on above: Result Comment: Dr Avelina helms Followed MANAGEMENT OF PATIENT CARE PER NURSING PROTOCOL Performed By: #### L 501.080 #### [facility] [address] [place], [address] CBC W/Diff, Automatedon 10-0 Absolute Lymph 1.45 X10 3/uL Normal 0.83-4.51 [facility] Comment on above: Performed By: #### L 100.0100, L500.3400, L500.4050 #### [facility] [address] [place], [address] Absolute Neut 4.0 X10 3/uL Normal 2.0-7.7 [facility] Comment on above: Performed By: #### L 100.0100, L500.3400, L500.4050 #### [facility] [address] [place], [address] Basophils/100 WBC (Bld) 1.5 % High 0-1 [facility] Comment on above: Performed By: #### L 100.0100, L500.3400, L500.4050 #### [facility] [address] [place], [address] Eosinophils/100 WBC (Bld) 7.1 % High 0-5 [facility] Comment on above: Performed By: #### L 100.0100, L500.3400, L500.4050 #### [facility] [address] [place], [address] Erythrocyte distribution width (RBC) [Ratio] 18.3 % High 11.6-14.6 [facility] Comment on above: Performed By: #### L 100.0100, L500.3400, L500.4050 #### [facility] [address] [place], [address] Hematocrit (Bld) [Volume fraction] 28.7 % Low 40-54 [facility] Comment on above: Performed By: #### L 100.0100, L500.3400, L500.4050 #### [facility] [address] [place], [address] Hemoglobin (Bld) [Mass/Vol] 9.1 g/dL Low 13.0-16.5 [facility] Comment on above: Performed By: #### L 100.0100, L500.3400, L500.4050 #### [facility] [address] [place], [address] IG% 0.300 Normal 0.0-0.9 [facility] Comment on above: Result Comment: IG% - Immature Granulocytes (promyelocytes, myelocytes and metamyelocytes) > 1% indicates that a LEFT SHIFT is Present. Performed By: #### L 100.0100, L500.3400, L500.4050 #### [facility] [address] [place], [address] Lymphocytes/100 WBC (Bld) 21.9 % Normal 19-41 [facility] Comment on above: Performed By: #### L 100.0100, L500.3400, L500.4050 #### [facility] [address] [place], [address] MCH (RBC) [Entitic mass] 29.4 pg Normal 27.0-32.0 [facility] Comment on above: Performed By: #### L 100.0100, L500.3400, L500.4050 #### [facility] [address] [place], [address] MCHC (RBC) [Mass/Vol] 31.7 g/dL Low 32-36 [facility] Comment on above: Performed By: #### L 100.0100, L500.3400, L500.4050 #### [facility] [address] [place], [address] MCV (RBC) [Entitic vol] 92.9 fL Normal 80-94 [facility] Comment on above: Performed By: #### L 100.0100, L500.3400, L500.4050 #### [facility] [address] [place], [address] Monocytes/100 WBC (Bld) 9.4 % Normal 0-10 [facility] Comment on above: Performed By: #### L 100.0100, L500.3400, L500.4050 #### [facility] [address] [place], [address] Neutrophils/100 WBC (Bld) 59.8 % Normal 47-70 [facility] Comment on above: Performed By: #### L 100.0100, L500.3400, L500.4050 #### [facility] [address] [place], [address] Nucleated RBC (Bld) [#/Vol] 0 10*3/uL Normal 0-5 [facility] Comment on above: Performed By: #### L 100.0100, L500.3400, L500.4050 #### [facility] [address] [place], [address] Platelet mean volume (Bld) [Entitic vol] 9.2 fL Normal 6.2-12.0 [facility] Comment on above: Performed By: #### L 100.0100, L500.3400, L500.4050 #### [facility] [address] [place], [address] Platelets (Bld) [#/Vol] 226 10*3/uL Normal 150-450 [facility] Comment on above: Performed By: #### L 100.0100, L500.3400, L500.4050 #### [facility] [address] [place], [address] RBC (Bld) [#/Vol] 3.09 10*6/uL Low 4.6-6.2 [facility] Comment on above: Performed By: #### L 100.0100, L500.3400, L500.4050 #### [facility] [address] [place], [address] RDW SD 62.3 fl High 35.1-43.9 [facility] Comment on above: Performed By: #### L 100.0100, L500.3400, L500.4050 #### [facility] [address] [place], [address] WBC (Bld) [#/Vol] 6.6 10*3/uL Normal 4.4-11.0 [facility] Comment on above: Performed By: #### L 100.0100, L500.3400, L500.4050 #### [facility] [address] [place], [address] Comprehensive Metabolic Prof ilon 08-31-2024 Albumin/Globulin [Mass ratio] 0.3 {ratio} Low 0.9-2.4 [facility] Comment on above: Performed By: #### L 100.0100, L500.3400, L500.4050 #### [facility] [address] [place], [address] BUN/CRE 12.6 RATIO Normal 10-20 [facility] Comment on above: Performed By: #### L 100.0100, L500.3400, L500.4050 #### [facility] [address] [place], [address] CA,Total 7.9 mg/dL Low 8.5-10.1 [facility] Comment on above: Performed By: #### L 100.0100, L500.3400, L500.4050 #### [facility] [address] [place], [address] Chloride [Moles/Vol] 115 mmol/L High 98-107 [facility] Comment on above: Performed By: #### L 100.0100, L500.3400, L500.4050 #### [facility] [address] [place], [address] CO2 [Moles/Vol] 24.0 mmol/L Normal 21.0-32.0 [facility] Comment on above: Performed By: #### L 100.0100, L500.3400, L500.4050 #### [facility] [address] [place], [address] Creatinine [Mass/Vol] 1.03 mg/dL Normal 0.70-1.30 [facility] Comment on above: Result Comment: The validity of the calculated GFR GFRAA in patients over 70 years has not been determined. Clinical correlation is essential. Performed By: #### L 100.0100, L500.3400, L500.4050 #### [facility] [address] [place], [address] ECRCL 60.27 ml/min Normal [facility] Comment on above: Performed By: #### L 100.0100, L500.3400, L500.4050 #### [facility] [address] [place], [address] EST GFR - AA 108 mL/min Normal >60 [facility] Comment on above: Result Comment: Afri can Burmese GFR Calc Performed By: #### L 100.0100, L500.3400, L500.4050 #### [facility] [address] [place], [address] GAP 0 Low 5-15 [facility] Comment on above: Performed By: #### L 100.0100, L500.3400, L500.4050 #### [facility] [address] [place], [address] GFR/1.73 sq M.predicted among non-blacks MDRD (S/P/Bld) [Vol rate/Area] 90 mL/min/{1.73_m2} Normal >60 [facility] Comment on above: Result Comment: Non- GFR Calc Performed By: #### L 100.0100, L500.3400, L500.4050 #### [facility] [address] [place], [address] Glucose [Mass/Vol] 151 mg/dL High 74-106 [facility] Comment on above: Result Comment: Fast ing Glucose result greater than or equal to 126 mg/dL suggests DIABETES MELLITUS per A.D.A. criteria. Performed By: #### L 100.0100, L500.3400, L500.4050 #### [facility] [address] [place], [address] Potassium [Moles/Vol] 5.7 mmol/L High 3.5-5.1 [facility] Comment on above: Performed By: #### L 100.0100, L500.3400, L500.4050 #### [facility] [address] [place], [address] Sodium [Moles/Vol] 139 mmol/L Normal 136-145 [facility] Comment on above: Performed By: #### L 100.0100, L500.3400, L500.4050 #### [facility] [address] [place], [address] Urea nitrogen [Mass/Vol] 13 mg/dL Normal 7-18 [facility] Comment on above: Performed By: #### L 100.0100, L500.3400, L500.4050 #### [facility] [address] [place], [address] Emergency Department Summary on 08-31-2024 Emergency Department Summary [facility] Medical Records Department [address] [place] [address] Emergency Department Summary 08/31/24 MR#: [id number] Acct: [id number] Name: JAY BARBER Rep #: [id number] : 1995 29 From: Brady Bal DO PCP: Care Physician,No Primary Status:REG ER Location: ED HPI History of Present Illness Chief Complaint: Abn Labs Narrative Narrative: Patient is a 29-year-old male with past medical history of type 1 diabetes, pancreatic insufficiency, cystic fibrosis, asthma who presented to the emergency department with a chief complaint of elevated potassium levels. Patient states that he was having his potassium checked as his potassium has been running high the past few times after his IV antibiotic treatments. He states that he currently is on vancomycin and meropenem for a cystic fibrosis flare. He states that on of this week will be 2 weeks of the IV antibiotics. Patient states that he follows with the [facility] for his cystic fibrosis. Patient notes that he has been a little bit more tired than normal today but denies any other symptoms. [facility] Medical History (Updated 10/01/24 @ 19:[address] Brady Bal, DO) Cystic fibrosis Home Medications ???Medication ???Instructions ???Recorded ???Last Taken ???Type elexacaftor 100 mg-tezacaf 2 ea PO DAILY CF 11/14/19 07/04/20 History 50mg-ivacaf 75mg(d)/ivacaf 150mg(n) tablets qlonkl-uwhqqfho-cijkm se 2 - 3 cap PO TIDCM 11/14/19 Unknown History 36,000-114,000-180,00 0 unit capsule,delay rel insulin glargine 100 unit/mL (3 8 unit SQ QHS DM 07/04/20 Unknown History mL) subcutaneous pen insulin lispro 100 unit/mL See Protocol SQ TIDCM 07/04/20 08/31/24 History subcutaneous pen tobramycin with nebulizer 300 mg/5 300 mg IH BID SOB 07/04/20 Unknown History mL solution for nebulization Nicotine [Nicotine Patch] 21 mg TRANSDERM. DAILY ##14 07/07/20 Unknown Rx albuterol sulfate 90 mcg/actuation 2 puff inhalation Q4H PRN PRN 08/31/24 Unknown History aerosol inhaler (Ventolin HFA) wheezing blood sugar diagnostic (OneTouch 08/31/24 Unknown History Verio test strips) blood-glucose sensor (Postling G7 08/31/24 Unknown History Sensor device) carvedilol 25 mg tablet 25 mg PO BID 08/31/24 Unknown History diphenhydramine HCl 50 mg/mL 50 mg IV Q12H vancomycin 08/31/24 08/31/24 History injection solution sensitivity dornase christi 1 mg/mL solution for 2.5 mg inhalation DAILY 08/31/24 Unknown History inhalation (Pulmozyme) ipratropium 0.5 mg-albuterol 3 mg 3 ml inhalation Q4H PRN PRN 08/31/24 Unknown History (2.5 mg base)/3 mL nebulization wheezing soln meropenem 1 gram intravenous 1 g IV Q12H 08/31/24 Unknown History solution pantoprazole 40 mg tablet,delayed 40 mg PO BID 08/31/24 Unknown History release polyethylene glycol 3350 17 17 g PO DAILY PRN constipation 08/31/24 Unknown History gram/dose oral powder sodium chloride 0.9 % 1 ea IV Q12H PRN flush after abx 08/31/24 Unknown History vancomycin 500 mg intravenous 300 mg PO Q12H 08/31/24 08/31/24 History solution Allergy/AdvReac Type Severity Reaction Status Date / Time No Known Allergies Allergy Verified 08/31/24 13:44 Social History Smoking Status: Former smoker ROS ROS ED ROS Narrative Constitutional: Denies any fevers, chills, headaches, lightness, dizziness Eyes: Denies double vision blurry vision changes vision Cardiovascular: Denies chest pain or palpitations Respiratory: Denies coughing wheezing shortness of breath Abdomen: Denies abdominal pain nausea vomit diarrhea : Denies any painful urination, hematuria and polyuria Neurological: Denies numbness, weakness and tingling Musculoskeletal: Denies back pain Skin: Denies rashes or lesions EXAM Physical Exam Narrative Exam Narrative: General: Patient lying in bed rest comfortably did not appear to be in acute distress Head: Atraumatic, normocephalic Eyes: PERRL bilaterally, EOMI bilateral, no conjunctival injection noted Neck: Soft, supple, trach midline Cardiovascular: Regular rate and rhythm no murmurs gallops rubs noted Respiratory: Patient has minimal end expiratory squeak noted bilaterally Abdomen: Soft nondistended, nontender to palpation, bowel sounds present x 4 Extremities: +5/5 strength noted in bilateral upper and lower extremities, no pedal edema no exam, radial pulses +2/4 in the bilateral upper extremities Neurological: Patient was following commands knew that he was at [facility] year is 2023 Skin: Warm, dry, intact Const Vital Signs: 08/31/24 13:44 08/31/24 14:05 08/31/24 14:15 Temperature 98.9 F Temperature Source Oral Pulse Rate 84 84 Respiratory Rate 18 18 Respiratory Effort Normal No (more content not included)... Normal [facility] H AND P Exam - [facility] 08-31-2024 H&P Exam - Hospitalist [facility] Medical Records Department [address] [place] [address] H P Exam - Hospitalist 08/31/241946 MR#: [id number] Acct: [id number] Name: ELISABETHJAY EDWIN Rep #: [id number] : 1995 29 From: Niko Cook DO PCP: Care Physician,No Primary Status:ADM JAMARCUS Location: [place] [address] HPI - General General Date of Admission: 08/31/24 Date of Service: 08/31/24 Chief Complaint: Hyperkalemia HPI Narrative JAY BARBER, is a 29 M who presented to [facility] ED on 08/31/2024 for hyperkalemia. Patient has history of cystic fibrosis, follows with [facility] for this. Is currently on IV vancomycin and meropenem at home through PICC line for pulmonary infection. Has completed about 2 weeks of antibiotics and states he typically completes 3 to 4 weeks of antibiotics total with episodes like this. He had his potassium level checked earlier today because his potassium level has been elevated in the past with IV antibiotic treatments. His potassium level was noted to be 5.7 so he was sent to the ED for further evaluation. Repeat potassium here was 5.7 as well. EKG did show peaked T waves throughout, otherwise no other hyperkalemia changes noted. Patient was treated with insulin and dextrose and a bolus of IV fluids with potassium recheck of 5.4. However, repeat EKG continued to show peaked T waves so hospitalist was contacted for admission. I saw the patient at bedside in the ED, mother was present. Patient was very pleasant. Was sitting up comfortably in bed, conversing normally, in no acute distress. Did have an occasional wet cough noted. Otherwise stated that his pulmonary infection has improved on antibiotics and he denies any other acute pain or discomfort. Patient was noted to have elevated blood pressures at that time and was given a dose of IV labetalol for this. I gave him doses of IV Lasix, sodium polystyrene and a DuoNeb treatment and patient will be admitted for further management. [facility] Medical History (Updated 08/31/24 @ 19:[address] Brady Bal, DO) Cystic fibrosis Home Medications ???Medication ???Instructions ???Recorded ???Last Taken ???Type elexacaftor 100 mg-tezacaf 2 ea PO DAILY CF 11/14/19 07/04/20 History 50mg-ivacaf 75mg(d)/ivacaf 150mg(n) tablets uhvqhq-olhtzebu-qexin se 2 - 3 cap PO TIDCM 11/14/19 Unknown History 36,000-114,000-180,00 0 unit capsule,delay rel insulin glargine 100 unit/mL (3 8 unit SQ QHS DM 07/04/20 Unknown History mL) subcutaneous pen insulin lispro 100 unit/mL See Protocol SQ TIDCM 07/04/20 08/31/24 History subcutaneous pen tobramycin with nebulizer 300 mg/5 300 mg IH BID SOB 07/04/20 Unknown History mL solution for nebulization albuterol sulfate 90 mcg/actuation 2 puff inhalation Q4H PRN PRN 08/31/24 Unknown History aerosol inhaler (Ventolin HFA) wheezing blood sugar diagnostic (OneTouch 08/31/24 Unknown History Verio test strips) blood-glucose sensor (Postling G7 08/31/24 Unknown History Sensor device) carvedilol 25 mg tablet 25 mg PO BID 08/31/24 Unknown History diphenhydramine HCl 50 mg/mL 50 mg IV Q12H vancomycin 08/31/24 08/31/24 History injection solution sensitivity dornase christi 1 mg/mL solution for 2.5 mg inhalation DAILY 08/31/24 Unknown History inhalation (Pulmozyme) ipratropium 0.5 mg-albuterol 3 mg 3 ml inhalation Q4H PRN PRN 08/31/24 Unknown History (2.5 mg base)/3 mL nebulization wheezing soln meropenem 1 gram intravenous 1 g IV Q12H 08/31/24 Unknown History solution pantoprazole 40 mg tablet,delayed 40 mg PO BID 08/31/24 Unknown History release polyethylene glycol 3350 17 17 g PO DAILY PRN constipation 08/31/24 Unknown History gram/dose oral powder sodium chloride 0.9 % 1 ea IV Q12H PRN flush after abx 08/31/24 Unknown History vancomycin 500 mg intravenous 300 mg PO Q12H 08/31/24 08/31/24 History solution Allergy/AdvReac Type Severity Reaction Status Date / Time cefoxitin AdvReac Intermediate Upset Verified 08/31/24 21:01 Stomach Social History Smoking Status: Former smoker ROS Constitutional Constitutional: Denies chills, fatigue, fever(s) or weakness Eyes Eyes: Denies change in vision Cardiovascular Cardiovascular: Denies chest pain Respiratory/Chest Respiratory/Chest: Reports cough and productive cough; Denies shortness of breath at rest, shortness of breath with exertion or wheezing Gastrointestinal Gastrointestinal: Denies abdominal pain, constipation, diarrhea, nausea or vomiting Genitourinary Genitourinary: Denies dysuria Vital Signs Vital Signs Vital Signs: 08/31/24 13:44 08/31/24 14:05 08/31/24 14:15 Temperature 98.9 F Temperature Source Oral Pulse Rate 84 84 Respiratory Rate 18 18 Respiratory Effo (more content not included)... Normal [facility] Liver Profileon 08-31-2024 Albumin [Mass/Vol] 1.5 g/dL Low 3.2-5.0 [facility] Comment on above: Performed By: #### L 100.0100, L500.3400, L500.4050 #### [facility] [address] [place], [address] ALK P 819 U/L High 45-117 [facility] Comment on above: Performed By: #### L 100.0100, L500.3400, [id number] #### [facility] [address] [place], [address] ALT [Catalytic activity/Vol] 29 U/L Normal 16-61 [facility] Comment on above: Performed By: #### L 100.0100, L500.3400, [id number] #### [facility] [address] [place], [address] AST [Catalytic activity/Vol] 50 U/L High 15-37 [facility] Comment on above: Performed By: #### L 100.0100, L500.3400, [id number] #### [facility] [address] [place], [address] Bilirubin [Mass/Vol] 0.30 mg/dL Normal 0.20-1.00 [facility] Comment on above: Result Comment: For patients on eltrombopag therapy, use of Dimension [place] TBIL is not recommended. Performed By: #### L 100.0100, L500.3400, [id number] #### [facility] [address] [place], [address] Bilirubin.direct [Mass/Vol] 0.17 mg/dL Normal 0.00-0.30 [facility] Comment on above: Performed By: #### L 100.0100, L500.3400, [id number] #### [facility] [address] [place], [address] Globulin (S) [Mass/Vol] 5.5 g/dL High 2.2-4.2 [facility] Comment on above: Performed By: #### L 100.0100, L500.3400, [id number] #### [facility] [address] [place], [address] T PROT 7.0 g/dL Normal 6.4-8.2 [facility] Comment on above: Performed By: #### L 100.0100, L500.3400, [id number] #### [facility] [address] [place], [address] Vancomycin, Random Levelon 1 VANCO, RANDOM 18.8 ug/mL High 0.0-15.0 [facility] Comment on above: Result Comment: VANC OMYCIN STANDARD DRUG THERAPY: CRITICAL VALUE IS > 15.0 mg/L VANCOMYCIN HIGH INTENSITY THERAPY: CRITICAL VALUE IS > 20.0 mg/L PLEASE CONTACT PHARMACY SERVICES (#[id number]) FOR INTERPRETATION OF RESULTS. THIS RESULT DOES NOT REPRESENT A PEAK OR TROUGH LEVEL FOR THIS DRUG. Performed By: #### L 100.0100, L500.3400, [id number] #### [facility] [address] [place], [address] CNOVon 08-19-2024 CNOV Office Visit ([facility] ) ELISABETHJAY ([id number]) 1995 M Date Time Provider Department 08/19/24 8:00 AM PICC NURSE AKPIC During your visit today, we recorded the [...] PLACEMENT: Sterile PRIMARY PROCEDURALIST: Orquidea Ochoa RN NEWS INTERNSHIP: Daniel Barone RN PRE-PROCEDURE REVIEW ALLERGIES Allergen [...] applicable. Daniel Barone RN CATHETER PLACEMENT Brand: FastCAP Lot: [id number] Number of Lumens: 1 Type of PICC: Power Injectable PICC Lumen Size: 4 Azerbaijani PLACEMENT TECHNIQUE Lidocaine: Yes, Lidocaine 1% Volume [...] location system (more content not included)... Normal [facility] Comprehensive metabolic 2000 panelon 08-19-2024 Albumin [Mass/Vol] 2.7 g/dL Low 3.9 - 4.9 g/dL [facility] ALP [Catalytic activity/Vol] 1043 U/L High 38 - 113 U/L [facility] ALT [Catalytic activity/Vol] 25 U/L 10 - 54 U/L [facility] Anion gap [Moles/Vol] 9 mmol/L 8 - 15 mmol/L [facility] AST [Catalytic activity/Vol] 33 U/L 14 - 40 U/L [facility] Bilirubin [Mass/Vol] 0.6 mg/dL 0.2 - 1 .3 mg/dL [facility] Calcium [Mass/Vol] 8.6 mg/dL 8.5 - 10. 2 mg/dL [facility] Chloride [Moles/Vol] 98 mmol/L 98 - 10 7 mmol/L [facility] CO2 [Moles/Vol] 21 mmol/L Low 22 - 30 mmol/L [facility] Creatinine [Mass/Vol] 1.69 mg/dL High 0.73 - 1.22 mg/dL [facility] GFR/1.73 sq M.predicted among non-blacks MDRD (S/P/Bld) [Vol rate/Area] 55 mL/min/{1.73_m2} Low - PINF [facility] Comment on above: Estimated Glomerular Filtration [...] 126 mg/dL High 74 - 99 mg/dL [facility] Comment on above: The [place] Diabete s Association (ADA) provides guidance for [...] Standards of Medical Care in Diabetes 2016, [place] Diabetes Association. Diabetes Care. 2016.39(Suppl 1). Interpretation and review of laboratory results Abnormal [facility] Potassium [Moles/Vol] 4.9 mmol/L 3.7 - 5.1 mmol/L [facility] Protein [Mass/Vol] 8.6 g/dL High 6.3 - 8.0 g/dL [facility] Sodium [Moles/Vol] 128 mmol/L Low 136 - 144 mmol/L [facility] Urea nitrogen [Mass/Vol] 26 mg/dL High 9 - 24 mg/dL [facility] MAGNESIUMon 08-19-2024 Magnesium [Mass/Vol] 1.9 mg/dL 1.7 - 2 .3 mg/dL [facility] Magnesium [Mass/Vol]on 08-19 Interpretation and review of laboratory results Normal [facility] No Panel Informationon 08-19 Daniel Barone RN 08/19/2024 8:22 AM PICC NURSE INSERTION NOTE DATE OF PROCEDURE: August 19, 2024 TIME OF PROCEDURE: 0750 ORDERING PHYSICIAN: Dunia INFORMED CONSENT: Obtained per hospital policy. INDICATION FOR LINE PLACEMENT: IV access COPAT CONDITION OF LINE PLACEMENT: Sterile PRIMARY PROCEDURALIST: Orquidea Ochoa RN NEWS INTERNSHIP: Daniel Barone RN PRE-PROCEDURE REVIEW ALLERGIES Allergen [...] applicable. Daniel Barone RN CATHETER PLACEMENT Brand: FastCAP Lot: [id number] Number of Lumens: 1 Type of PICC: Power Injectable PICC Lumen Size: 4 Azerbaijani PLACEMENT TECHNIQUE Lidocaine: Yes, Lidocaine 1% Volume [...] Given to patient QUESTIONS or PROBLEMS: Call [phone] SIGNATURE: Daniel Barone RN PATIENT NAME: Jay Barber DATE: August 19, 2024 TIME: 8:08 AM PAGER/CONTACT PHONE: [facility] Radiology Study observation (narrative) [facility] CBC W Auto Differential pane l (Bld)on 08-18-2024 Basophils (Bld) [#/Vol] 0.11 10*3/uL High [facility] Basophils/100 WBC (Bld) 1.0 % [facility] Differential cell count method Nom (Bld) Auto [facility] Eosinophils (Bld) [#/Vol] 0.68 10*3/uL High [facility] Eosinophils/100 WBC (Bld) 6.0 % [facility] Erythrocyte distribution width (RBC) [Ratio] 17.9 % High 11.5 - 15.0 % [facility] Hematocrit (Bld) [Volume fraction] 35.3 % Low 39.0 - 51.0 % [facility] Hemoglobin (Bld) [Mass/Vol] 11.3 g/dL Low 13.0 - 17.0 g/dL [facility] Immature granulocytes (Bld) [#/Vol] 0.07 10*3/uL [facility] Immature granulocytes/100 WBC (Bld) 0.6 % [facility] Interpretation and review of laboratory results Abnormal [facility] Lymphocytes (Bld) [#/Vol] 1.90 10*3/uL [facility] Lymphocytes/100 WBC (Bld) 16.7 % [facility] MCH (RBC) [Entitic mass] 29.0 pg 26.0 - 34.0 pg [facility] MCHC (RBC) [Mass/Vol] 32.0 g/dL 30.5 - 36.0 g/dL [facility] MCV (RBC) [Entitic vol] 90.7 fL 80.0 - 100.0 fL [facility] Monocytes (Bld) [#/Vol] 0.90 10*3/uL High NINF [facility] Monocytes/100 WBC (Bld) 7.9 % [facility] Neutrophils (Bld) [#/Vol] 7.71 10*3/uL High [facility] Neutrophils/100 WBC (Bld) 67.8 % [facility] Nucleated RBC (Bld) [#/Vol] NINF [facility] Nucleated RBC/100 WBC (Bld) [Ratio] 0.0 % /100 WBC [facility] Platelet mean volume (Bld) [Entitic vol] 10.1 fL 9.0 - 12.7 fL [facility] Platelets (Bld) [#/Vol] 274 10*3/uL [facility] RBC (Bld) [#/Vol] 3.89 10*6/uL Low 4.20 - 6.0 0 m/uL [facility] WBC (Bld) [#/Vol] 11.37 10*3/uL High [facility] VANCOMYCINon 08-18-2024 Vancomycin random [Mass/Vol] ug/mL Low 10.0 - 20.0 ug/mL [facility] Comment on above: Reference ranges and high/low indicator flags are provided as general guidelines only. The treating physician must determine appropriate target levels/dosing based on the specific clinical situation. Result rechecked. Vancomycin random [Mass/Vol] on 08-18-2024 Interpretation and review of laboratory results Abnormal [facility] CNOVon 07-06-2024 CNOV Office Visit ([facility] ) JAY BARBER ([id number]) 1995 M Date Time Provider Department 07/06/24 2:00 PM STEPHIE RAMIREZ During your visit today, we recorded the following information about you: Blood pressure Weight Height 156/92 42.4 kg 1.575 m Stephie Ramirez APRN.BUGGY LADLE TENDER 07/07/2024 1:14 PM Signed Subjective Date of [...] 69, 03/2024: Creatinine 1.02 Urine for Microalbumin:10/2013: Microalbumin:Creatini ne ratio ok,12/2015: microalbumin : creatinine ratio ok, 08/2017: Microalbumin:Creatini ne Ratio ok, 10/2018: Microalbumin:Creatini ne Ratio 535, 01/03/2020: Microalbumin:Creatini ne Ratio 650, 01/2021: Microalbumin:Creatini ne Ratio 361. Improved but above goal. Jay states he has used lisinopril in the past but this increased his potassium too much and it was discontinued. He will inquire further with his CF providers about losartan. I advised him to make an appointment with nephrology as we had previously discussed., 03/19/2021: Microalbumin:Creatini ne Ratio 1220, 08/2021: still hasn't made appointment with kidney specialist, stressed the importance of this to prevent further kidney damage., 10/2022: prot/creat ratio in epic, making appointment with nephrology, 07/2023: prot/creat ratio in the medical center Lipid Profile:10/2013: TC 111, HDL 42, LDL [...] results in care everywhere, 12/2019: results in [facility] everywhere, 01/2020: labs in [facility], 07/2020; Alkaline Phosphatase 725 (45-117), ALT 77 (16-61), AST 163 (15-37), 12/2020: results in care everywhere., 03/2021: results In care everywhere, 12/2021: Alkaline Phosphatase 918 (38-113), bone percent 13.9%, liver percent 86.1 , 12/2022: liver function monitored by CF providers, 03/2023: in the medical center, 08/2023: LFTS in the medical center, 10/2023: LFTS in the medical center, 03/2024: liver test in the medical center Dilated Eye Exam: Patient educated to have ophthalmology visits at least once a year. 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 08/2013: New patient visit for Cystic Fibrosis related Diabetes [facility] prior to today's office visit. [...] if above goal. self monitoring blood glucose data: see dexcom report. Average 14 day SG 164 predicted gmi 7.2%, 63% TIR 3% low range. Improving. Occasional late evening elevations. Occasional missed dosages (more content not included)... Normal [facility] HEMOGLOBIN A1C (POC)on 07-06 HbA1c (Bld) [Mass fraction] 6.2 % Abnormal 4.3 - 5.6 % [facility] Comment on above: Location:[facility], [address], [facility] Point of care (POC) Hemoglobin A1c (HGBA1C) [...] specific diabetes management situations: The POC device care director provides a normal range of 4.2% to 6.5% for the HGBA1C POC test. However, the [place] Diabetes Association guidelines indicate that patients with [...] Interpretation and review of laboratory results Abnormal [facility] Bacteria identified Cystic f ibrosis respiratory culture Nom (Sput)Ordered By: Manju Beaulieu on 05-12-2024 Interpretation and review of laboratory results Abnormal [facility] No Staphylococcus aureus isolated. No Pseudomonas aeruginosa isolated. This test was developed and its performance characteristics determined by the [facility]'s [facility] [place] ([facility]). It has not been cleared or approved by the FDA. [facility] is regulated under CLIA as qualified to perform high-complexity testing. This test is used for clinical purposes. It should not be regarded as investigational or for research. [facility] CYSTIC FIBROSIS RESPIRATORY CULTUREOrdered By: Manju Beaulieu on 05-12-2024 Bacteria identified Cystic fibrosis respiratory culture Nom (Sput) Rare Burkholderia cepacia complex Abnormal [facility] Bacteria identified Cystic fibrosis respiratory culture Nom (Sput) Many normal respiratory vicky Abnormal [facility] Bacteria identified Cystic fibrosis respiratory culture Nom (Sput) Rare Sphingobacterium multivorum Abnormal [facility] MR Biliary ducts and Pancrea tic duct WO and W contrast Ramu 05-07-2024 IMPRESSION: Multifocal segmental discontinuous bile duct dilation as described, most prominent in hepatic segment II, concerning for PBC or PSC. Cirrhotic liver with portal hypertension including multiple varices and mild splenomegaly but only trace ascites. No focal hepatic mass. Pancreatic changes consistent with sequela of cystic fibrosis. Environmental Technology Professor: KATHIE Transcribe Date/Time: May 07 2024 3:02P Dictated by : KELLY KOROMA MD This examination was interpreted and the report reviewed and electronically signed by: KELLY KOROMA MD on May 07 2024 3:14PM [facility] DIVISION OF RADIOLOGY * * *Final Report* * * DATE OF EXAM: May 07 2024 2:15PM [facility] 0730 - MRI PANC/MARYAM WO/W IVCON / [...] No additional findings. DIVISION OF RADIOLOGY Provider, [facility] - 05/07/2024 * * *Final Report* * * DATE OF EXAM: May 07 2024 2:15PM [facility] 0730 - MRI PANC/MARYAM WO/W IVCON / [...] changes consistent with sequela of cystic fibrosis. Environmental Technology Professor: PSCB Transcribe Date/Time: May 07 2024 3:02P Dictated by : KELLY KOROMA MD This examination was interpreted and the report reviewed and electronically signed by: KELLY KOROMA MD on May 07 2024 3:14PM EST [facility] Radiology Study observation (narrative) [facility] MR Biliary ducts and Pancrea tic duct WO and W contrast IVOrdered By: [facility] Provider on 05-07-2024 [facility] CNOVon 03-09-2024 CNOV Office Visit ([facility] ) JAY BARBER ([id number]) 1995 M Date Time Provider Department 03/09/24 2:00 PM STEPHIE RAMIREZ ENAG During your visit today, we recorded the following information about you: Blood pressure Weight Height 128/76 41 kg 1.575 m Stephie Rmairez, ADALI.BUGGY LADLE TENDER 03/09/2024 4:10 PM Signed Subjective Date of encounter: 03/09/2024 Jay Barber [...] Creatinine 1.37 eGFR 71 Urine for Microalbumin:10/2013: Microalbumin:Creatini ne ratio ok,12/2015: microalbumin : creatinine ratio ok, 08/2017: Microalbumin:Creatini ne Ratio ok, 10/2018: Microalbumin:Creatini ne Ratio 535, 01/03/2020: Microalbumin:Creatini ne Ratio 650, 01/2021: Microalbumin:Creatini ne Ratio 361. Improved but above goal. Jay states he has used lisinopril in the past but this increased his potassium too much and it was discontinued. He will inquire further with his CF providers about losartan. I advised him to make an appointment with nephrology as we had previously discussed., 03/19/2021: Microalbumin:Creatini ne Ratio 1220, 08/2021: still hasn't made appointment [...] results in care everywhere, 01/2020: labs in [facility], 07/2020; Alkaline Phosphatase 725 (45-117), ALT 77 (16-61), AST 163 (15-37), 12/2020: results in care everywhere., 03/2021: results In care everywhere, 12/2021: Alkaline Phosphatase 918 (38-113), bone percent 13.9%, liver percent 86.1 , 12/2022: liver function monitored by CF providers, 03/2023: in the medical center, 08/2023: LFTS in the medical center, 10/2023: LFTS in the medical center, 03/2024: liver test in the medical center Dilated Eye Exam: Patient educated to have ophthalmology visits at least once a year. 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 08/2013: New patient visit for Cystic Fibrosis related Diabetes [facility] to today's office visit. [...] patients CFRD only. self monitoring blood glucose data: see dexcom report. Average 14 day SG 205 predicted gmi n/a%, 44% TIR 2% low range. Reviewed to calibrate more often, review how/when to calibrate and to use physical BG for treatment decisions if ever doubting sensor accuracy. Recently dc'd from hospital, diet has been returning. Diet: can be high in carbs per patient due (more content not included)... Normal [facility] HEMOGLOBIN A1C (POC)on 03-09 HbA1c (Bld) [Mass fraction] 6.1 % Abnormal 4.3 - 5.6 % [facility] Absolute lymphocyte counton 02-24-2024 Lymphocytes Auto (Unsp spec) [#/Vol] 1.13 10*3/uL 0.83-4.51 [facility] Automated blood hematocrit ( percentage)on 02-24-2024 Hematocrit (Bld) [Volume fraction] 23.1 % 40-54 [facility] Automated lymphocyte count a s percentage of total leukocyteson 02-24-2024 Lymphocytes/100 WBC Auto (Unsp spec) 28.0 % 19-41 [facility] Basic Metabolic Profile (BMP )on 02-24-2024 BUN/CRE 25.0 RATIO High 10-20 [facility] Comment on above: Performed By: #### L 100.0100, L500.3400, L500.4050 #### [facility] [address] [place], [address] CA,Total 8.3 mg/dL Low 8.5-10.1 [facility] Comment on above: Performed By: #### L 100.0100, L500.3400, L500.4050 #### [facility] [address] [place], [address] Chloride [Moles/Vol] 102 mmol/L Normal 98-107 [facility] Comment on above: Performed By: #### L 100.0100, L500.3400, L500.4050 #### [facility] [address] [place], [address] CO2 [Moles/Vol] 27.0 mmol/L Normal 21.0-32.0 [facility] Comment on above: Performed By: #### L 100.0100, L500.3400, L500.4050 #### [facility] [address] [place], [address] Creatinine [Mass/Vol] 1.60 mg/dL High 0.70-1.30 [facility] Comment on above: Result Comment: The validity of the calculated GFR GFRAA in patients over 70 years has not been determined. Clinical correlation is essential. Performed By: #### L 100.0100, L500.3400, L500.4050 #### [facility] [address] [place], [address] EST GFR - AA 65 mL/min Normal >60 [facility] Comment on above: Result Comment: Afri can [place] GFR Calc Performed By: #### L 100.0100, L500.3400, L500.4050 #### [facility] Laboratory [address] [place], [address] GAP 4 Low 5-15 [facility] Comment on above: Performed By: #### L 100.0100, L500.3400, [id number] #### [facility] Laboratory [address] [place], [address] GFR/1.73 sq M.predicted among non-blacks MDRD (S/P/Bld) [Vol rate/Area] 54 mL/min/{1.73_m2} Low >60 [facility] Comment on above: Result Comment: Non- GFR Calc Performed By: #### L 100.0100, L500.3400, [id number] #### [facility] Laboratory [address] [place], [address] Glucose [Mass/Vol] 354 mg/dL High 74-106 [facility] Comment on above: Result Comment: Gluc ose result greater than or equal to 200 mg/dL suggests DIABETES MELLITUS per A.D.A. criteria. Performed By: #### L 100.0100, L500.3400, [id number] #### [facility] [address] [place], [address] Potassium [Moles/Vol] 4.9 mmol/L Normal 3.5-5.1 [facility] Comment on above: Performed By: #### L 100.0100, L500.3400, [id number] #### [facility] [address] [place], [address] Sodium [Moles/Vol] 133 mmol/L Low 136-145 [facility] Comment on above: Performed By: #### L 100.0100, L500.3400, [id number] #### [facility] [address] [place], [address] Urea nitrogen [Mass/Vol] 40 mg/dL High 7-18 [facility] Comment on above: Performed By: #### L 100.0100, L500.3400, [id number] #### [facility] [address] [place], [address] Basophil percentageon 2023 Basophils/100 WBC (Bld) 1.2 % 0-1 [facility] Bilirubin [Mass/Vol] 0.70 mg/dL 0.20-1.00 [facility] Comment on above: For patients on eltr ombopag therapy, use of Dimension [place] TBIL is not recommended. Chloride [Moles/Vol] 102 mmol/L 98-107 [facility] Eosinophils/100 WBC (Bld) 12.1 % 0-5 [facility] Glucose [Mass/Vol] 354 mg/dL 74-106 [facility] Comment on above: Glucose result great er than or equal to 200 mg/dLsuggests DIABETES MELLITUS per A.D.A. criteria. Hemoglobin (Bld) [Mass/Vol] 7.5 g/dL 13.0-16.5 [facility] Monocytes/100 WBC (Bld) 13.1 % 0-10 [facility] Neutrophils (Bld) [#/Vol] 1.8 10*3/uL 2.0-7.7 [facility] Neutrophils/100 WBC (Bld) 45.4 % 47-70 [facility] Potassium [Moles/Vol] 4.9 mmol/L 3.5-5.1 [facility] Protein [Mass/Vol] 8.2 g/dL 6.4-8.2 [facility] Sodium [Moles/Vol] 133 mmol/L 136-145 [facility] WBC (Bld) [#/Vol] 4.0 10*3/uL 4.4-11.0 [facility] CBC W Auto Differential pane l (Bld)on 02-24-2024 Abs Neut (ANC) 1.8 K/uL Abnormal 2 - 7.7 K/uL [facility] CBC W/Diff, Automatedon 01-30 Absolute Lymph 1.13 X10 3/uL Normal 0.83-4.51 [facility] Comment on above: Performed By: #### L 100.0100, L500.3400, [id number] #### [facility] Laboratory [address] [place], [address] Absolute Neut 1.8 X10 3/uL Low 2.0-7.7 [facility] Comment on above: Performed By: #### L 100.0100, L500.3400, [id number] #### [facility] Laboratory [address] [place], [address] Basophils/100 WBC (Bld) 1.2 % High 0-1 [facility] Comment on above: Performed By: #### L 100.0100, L500.3400, [id number] #### [facility] Laboratory [address] [place], [address] Eosinophils/100 WBC (Bld) 12.1 % High 0-5 [facility] Comment on above: Performed By: #### L 100.0100, L500.3400, [id number] #### [facility] Laboratory [address] [place], [address] Erythrocyte distribution width (RBC) [Ratio] 14.0 % Normal 11.6-14.6 [facility] Comment on above: Performed By: #### L 100.0100, L500.3400, [id number] #### [facility] Laboratory [address] [place], [address] Hematocrit (Bld) [Volume fraction] 23.1 % Low 40-54 [facility] Comment on above: Performed By: #### L 100.0100, L500.3400, [id number] #### [facility] [address] [place], [address] Hemoglobin (Bld) [Mass/Vol] 7.5 g/dL Low 13.0-16.5 [facility] Comment on above: Performed By: #### L 100.0100, L500.3400, [id number] #### [facility] [address] [place], [address] IG% 0.200 Normal 0.0-0.9 [facility] Comment on above: Result Comment: IG% - Immature Granulocytes (promyelocytes, myelocytes and metamyelocytes) > 1% indicates that a LEFT SHIFT is Present. Performed By: #### L 100.0100, L500.3400, [id number] #### [facility] [address] [place], [address] Lymphocytes/100 WBC (Bld) 28.0 % Normal 19-41 [facility] Comment on above: Performed By: #### L 100.0100, L500.3400, [id number] #### [facility] [address] [place], [address] MCH (RBC) [Entitic mass] 30.5 pg Normal 27.0-32.0 [facility] Comment on above: Performed By: #### L 100.0100, L500.3400, [id number] #### [facility] [address] [place], [address] MCHC (RBC) [Mass/Vol] 32.5 g/dL Normal 32-36 [facility] Comment on above: Performed By: #### L 100.0100, L500.3400, [id number] #### [facility] [address] [place], [address] MCV (RBC) [Entitic vol] 93.9 fL Normal 80-94 [facility] Comment on above: Performed By: #### L 100.0100, L500.3400, [id number] #### [facility] [address] [place], [address] Monocytes/100 WBC (Bld) 13.1 % High 0-10 [facility] Comment on above: Performed By: #### L 100.0100, L500.3400, [id number] #### [facility] [address] [place], [address] Neutrophils/100 WBC (Bld) 45.4 % Low 47-70 [facility] Comment on above: Performed By: #### L 100.0100, L500.3400, [id number] #### [facility] [address] [place], [address] Nucleated RBC (Bld) [#/Vol] 0 10*3/uL Normal 0-5 [facility] Comment on above: Performed By: #### L 100.0100, L500.3400, [id number] #### [facility] [address] [place], [address] Platelet mean volume (Bld) [Entitic vol] 9.7 fL Normal 6.2-12.0 [facility] Comment on above: Performed By: #### L 100.0100, L500.3400, [id number] #### [facility] [address] [place], [address] Platelets (Bld) [#/Vol] 225 10*3/uL Normal 150-450 [facility] Comment on above: Performed By: #### L 100.0100, L500.3400, [id number] #### [facility] [address] [place], [address] RBC (Bld) [#/Vol] 2.46 10*6/uL Low 4.6-6.2 [facility] Comment on above: Performed By: #### L 100.0100, L500.3400, [id number] #### [facility] [address] [place], [address] RDW SD 48.2 fl High 35.1-43.9 [facility] Comment on above: Performed By: #### L 100.0100, L500.3400, [id number] #### [facility] Laboratory [address] [place], [address] WBC (Bld) [#/Vol] 4.0 10*3/uL Low 4.4-11.0 [facility] Comment on above: Performed By: #### L 100.0100, L500.3400, [id number] #### [facility] Laboratory [address] [place], [address] Comprehensive metabolic 2000 panelon 02-24-2024 AST [Catalytic activity/Vol] 163 U/L Abnormal 15 - 37 [facility] Determination of erythrocyte mean corpuscular volume (MCV)on 02-24-2024 MCV (RBC) [Entitic vol] 93.9 fL 80-94 [facility] Direct bilirubinon Bilirubin.direct [Mass/Vol] 0.40 mg/dL 0.00-0.30 [facility] Erythrocyte distribution wid th ratioon 02-24-2024 Erythrocyte distribution width (RBC) [Ratio] 14.0 % 11.6-14.6 [facility] Erythrocyte distribution wid th standard deviationon 02-24-2024 Erythrocyte distribution width (RBC) [Entitic vol] 48.2 fL 35.1-43.9 [facility] Immature granulocytes/100 WB C Auto (Bld)on 02-24-2024 Immature granulocytes/100 WBC (Bld) 0.200 % 0.0-0.9 [facility] Comment on above: IG% - Immature Granu locytes (promyelocytes, myelocytes and metamyelocytes) > 1% indicates that a LEFT SHIFT is Present. Laboratory - Chemistry and C hemistry - challengeon 02-24-2024 ALP [Catalytic activity/Vol] 915 U/L 45-117 [facility] ALT [Catalytic activity/Vol] 96 U/L - [facility] CO2 [Moles/Vol] 27.0 mmol/L 21.0-32.0 [facility] Globulin (S) [Mass/Vol] 6.3 g/dL 2.2-4.2 [facility] Urea nitrogen/Creatinine [Mass ratio] 25.0 mg/mg 10-20 [facility] Laboratory - Hematology and Cell countson 02-24-2024 MCH (RBC) [Entitic mass] 30.5 pg 27.0-32.0 [facility] MCHC (RBC) [Mass/Vol] 32.5 g/dL 32-36 [facility] Nucleated RBC/100 WBC (Bld) [Ratio] 0 % 0-5 [facility] Platelet mean volume (Bld) [Entitic vol] 9.7 fL 6.2-12.0 [facility] Platelets (Bld) [#/Vol] 225 10*3/uL 150-450 [facility] Liver Profileon 02-24-2024 Albumin [Mass/Vol] 1.9 g/dL Low 3.2-5.0 [facility] Comment on above: Performed By: #### L 100.0100, L500.3400, [id number] #### [facility] [address] [place], [address] ALK P 915 U/L High -117 [facility] Comment on above: Performed By: #### L 100.0100, L500.3400, [id number] #### [facility] [address] [place], [address] ALT [Catalytic activity/Vol] 96 U/L High [facility] Comment on above: Performed By: #### L 100.0100, L500.3400, [id number] #### [facility] [address] [place], [address] AST [Catalytic activity/Vol] 163 U/L High 15-37 [facility] Comment on above: Performed By: #### L 100.0100, L500.3400, [id number] #### [facility] [address] [place], [address] Bilirubin [Mass/Vol] 0.70 mg/dL Normal 0.20-1.00 [facility] Comment on above: Result Comment: For patients on eltrombopag therapy, use of Dimension [place] TBIL is not recommended. Performed By: #### L 100.0100, L500.3400, [id number] #### [facility] [address] [place], [address] Bilirubin.direct [Mass/Vol] 0.40 mg/dL High 0.00-0.30 [facility] Comment on above: Performed By: #### L 100.0100, L500.3400, [id number] #### [facility] Laboratory [address] [place], [address] Globulin (S) [Mass/Vol] 6.3 g/dL High 2.2-4.2 [facility] Comment on above: Performed By: #### L 100.0100, L500.3400, [id number] #### [facility] [address] [place], [address] T PROT 8.2 g/dL Normal 6.4-8.2 [facility] Comment on above: Performed By: #### L 100.0100, L500.3400, [id number] #### [facility] [address] [place], [address] No Panel Informationon 02-23 Estimated GFR (MDRD) Amer 65 mL/min >60 [facility] Comment on above: GFR Calc Estimated GFR (MDRD) Non-Af Amer 54 mL/min >60 [facility] Comment on above: Non- GFR Calc RBC Auto (Bld) [#/Vol]on RBC (Bld) [#/Vol] 2.46 10*6/uL 4.6-6.2 [facility] Serum or plasma calcium soham urement (mass/volume)on 02-24-2024 Calcium [Mass/Vol] 8.3 mg/dL 8.5-10.1 [facility] Serum or plasma creatinine m easurement (mass/volume)on 02-24-2024 Creatinine [Mass/Vol] 1.60 mg/dL 0.70-1.30 [facility] Comment on above: The validity of the calculated GFR & GFRAA in patients over 70 years has not been determined. Clinical correlation is essential. Serum or plasma trough vanco mycin levelon 02-24-2024 Vancomycin trough [Mass/Vol] 18.1 ug/mL 5.0-15.0 [facility] Comment on above: VANCOMYCIN STANDARED DRUG THERAPY TROUGH LEVEL: 5.0 - 15.0 mg/L VANCOMYCIN HIGH INTENSITY THERAPY TROUGH LEVEL: 15.0 - 20.0 mg/L High Intensity therapy recommended for serious lifethreatening infections include:- Saekzbacgr-Iwinmcmsmsjz-Kgmkpqkij (Ventilator/Healtcare Associated)-Sepsis PLEASE CONTACT PHARMACY SERVICES (#[id number]) FOR INTERPRETATIONOF RESULTS. Serum or plasma urea nitroge n measurement (mass/volume)on 02-24-2024 Urea nitrogen [Mass/Vol] 40 mg/dL 7-18 [facility] Thin prep Papanicolaou smear with manual screeningon 02-24-2024 Thin prep Papanicolaou smear with manual screening 1.9 g/dL 3.2-5.0 [facility] Thin prep Papanicolaou smear with manual screening 163 U/L 15-37 [facility] Thin prep Papanicolaou smear with manual screening 4 5-15 [facility] VANCOMYCIN PRE DOSEon 2023 Vancomycin Pre 18.1 Abnormal 5 - 15 [facility] Vancomycin, Trough Levelon 0 3-26-2024 VANCO, TROUGH 18.1 ug/mL High 5.0-15.0 [facility] Comment on above: Order Comment: 1400 Result Comment: VANC OMYCIN STANDARED DRUG THERAPY TROUGH LEVEL: 5.0 - 15.0 mg/L VANCOMYCIN HIGH INTENSITY THERAPY TROUGH LEVEL: 15.0 - 20.0 mg/L High Intensity therapy recommended for serious life threatening infections include: - Meningitis -Endocarditis -Pneumonia (Ventilator/Healtcare Associated) -Sepsis PLEASE CONTACT PHARMACY SERVICES (#[id number]) FOR INTERPRETATION OF RESULTS. Performed By: #### L 100.0100, L500.3400, [id number] #### [facility] [address] [place], [address] Absolute lymphocyte counton 02-17-2024 Lymphocytes Auto (Unsp spec) [#/Vol] 1.30 10*3/uL 0.83-4.51 [facility] Automated blood hematocrit ( percentage)on 02-17-2024 Hematocrit (Bld) [Volume fraction] 25.7 % 40-54 [facility] Automated lymphocyte count a s percentage of total leukocyteson 02-17-2024 Lymphocytes/100 WBC Auto (Unsp spec) 26.3 % 19-41 [facility] Basic Metabolic Profile (BMP )on 02-17-2024 BUN/CRE 24.6 RATIO High 10-20 [facility] Comment on above: Performed By: #### L 100.0100, L501.8850, L500.2500 #### [facility] [address] [place], [address] CA,Total 8.5 mg/dL Normal 8.5-10.1 [facility] Comment on above: Performed By: #### L 100.0100, L501.8850, L500.2500 #### [facility] [address] [place], [address] Chloride [Moles/Vol] 103 mmol/L Normal 98-107 [facility] Comment on above: Performed By: #### L 100.0100, L501.8850, L500.2500 #### [facility] [address] [place], [address] CO2 [Moles/Vol] 29.0 mmol/L Normal 21.0-32.0 [facility] Comment on above: Performed By: #### L 100.0100, L501.8850, L500.2500 #### [facility] [address] [place], [address] Creatinine [Mass/Vol] 1.26 mg/dL Normal 0.70-1.30 [facility] Comment on above: Result Comment: The validity of the calculated GFR GFRAA in patients over 70 years has not been determined. Clinical correlation is essential. Performed By: #### L 100.0100, L501.8850, L500.2500 #### [facility] [address] [place], [address] EST GFR - AA 86 mL/min Normal >60 [facility] Comment on above: Result Comment: Afri can Burmese GFR Calc Performed By: #### L 100.0100, L501.8850, L500.2500 #### [facility] [address] [place], [address] GAP 5 Normal 5-15 [facility] Comment on above: Performed By: #### L 100.0100, L501.8850, L500.2500 #### [facility] [address] [place], [address] GFR/1.73 sq M.predicted among non-blacks MDRD (S/P/Bld) [Vol rate/Area] 71 mL/min/{1.73_m2} Normal >60 [facility] Comment on above: Result Comment: Non- GFR Calc Performed By: #### L 100.0100, L501.8850, L500.2500 #### [facility] [address] [place], [address] Glucose [Mass/Vol] 150 mg/dL High 74-106 [facility] Comment on above: Result Comment: Fast ing Glucose result greater than or equal to 126 mg/dL suggests DIABETES MELLITUS per A.D.A. criteria. Performed By: #### L 100.0100, L501.8850, L500.2500 #### [facility] [address] [place], [address] Potassium [Moles/Vol] 4.3 mmol/L Normal 3.5-5.1 [facility] Comment on above: Performed By: #### L 100.0100, [id number], L500.2500 #### [facility] [address] [place], [address] Sodium [Moles/Vol] 137 mmol/L Normal 136-145 [facility] Comment on above: Performed By: #### L 100.0100, [id number], L500.2500 #### [facility] [address] [place], [address] Urea nitrogen [Mass/Vol] 31 mg/dL High 7-18 [facility] Comment on above: Performed By: #### L 100.0100, L501.8850, L500.2500 #### [facility] [address] [place], [address] Basophil percentageon 2023 Basophils/100 WBC (Bld) 1.2 % 0-1 [facility] Chloride [Moles/Vol] 103 mmol/L 98-107 [facility] Eosinophils/100 WBC (Bld) 6.5 % 0-5 [facility] Glucose [Mass/Vol] 150 mg/dL 74-106 [facility] Comment on above: Fasting Glucose resu lt greater than or equal to 126 mg/dL suggests DIABETES MELLITUS per A.D.A. criteria. Hemoglobin (Bld) [Mass/Vol] 8.3 g/dL 13.0-16.5 [facility] Monocytes/100 WBC (Bld) 14.8 % 0-10 [facility] Neutrophils (Bld) [#/Vol] 2.5 10*3/uL 2.0-7.7 [facility] Neutrophils/100 WBC (Bld) 51.0 % 47-70 [facility] Potassium [Moles/Vol] 4.3 mmol/L 3.5-5.1 [facility] Sodium [Moles/Vol] 137 mmol/L 136-145 [facility] WBC (Bld) [#/Vol] 4.9 10*3/uL 4.4-11.0 [facility] CBC W Auto Differential pane l (Bld)on 02-17-2024 Abs Neut (ANC) 2.5 K/uL 2 - 7.7 K/uL [facility] CBC W/Diff, Automatedon 01-29 Absolute Lymph 1.30 X10 3/uL Normal 0.83-4.51 [facility] Comment on above: Performed By: #### L 100.0100, L501.8850, L500.2500 #### [facility] [address] [place], [address] Absolute Neut 2.5 X10 3/uL Normal 2.0-7.7 [facility] Comment on above: Performed By: #### L 100.0100, [id number], L500.2500 #### [facility] [address] [place], [address] Basophils/100 WBC (Bld) 1.2 % High 0-1 [facility] Comment on above: Performed By: #### L 100.0100, [id number], L500.2500 #### [facility] [address] [place], [address] Eosinophils/100 WBC (Bld) 6.5 % High 0-5 [facility] Comment on above: Performed By: #### L 100.0100, [id number], L500.2500 #### [facility] [address] [place], [address] Erythrocyte distribution width (RBC) [Ratio] 16.0 % High 11.6-14.6 [facility] Comment on above: Performed By: #### L 100.0100, [id number], L500.2500 #### [facility] [address] [place], [address] Hematocrit (Bld) [Volume fraction] 25.7 % Low 40-54 [facility] Comment on above: Performed By: #### L 100.0100, [id number], L500.2500 #### [facility] [address] [place], [address] Hemoglobin (Bld) [Mass/Vol] 8.3 g/dL Low 13.0-16.5 [facility] Comment on above: Performed By: #### L 100.0100, [id number], L500.2500 #### [facility] [address] [place], [address] IG% 0.200 Normal 0.0-0.9 [facility] Comment on above: Result Comment: IG% - Immature Granulocytes (promyelocytes, myelocytes and metamyelocytes) > 1% indicates that a LEFT SHIFT is Present. Performed By: #### L 100.0100, L501.8850, L500.2500 #### [facility] [address] [place], [address] Lymphocytes/100 WBC (Bld) 26.3 % Normal 19-41 [facility] Comment on above: Performed By: #### L 100.0100, [id number], L500.2500 #### [facility] [address] [place], [address] MCH (RBC) [Entitic mass] 30.6 pg Normal 27.0-32.0 [facility] Comment on above: Performed By: #### L 100.0100, L501.8850, L500.2500 #### [facility] [address] [place], [address] MCHC (RBC) [Mass/Vol] 32.3 g/dL Normal 32-36 [facility] Comment on above: Performed By: #### L 100.0100, [id number], L500.2500 #### [facility] [address] [place], [address] MCV (RBC) [Entitic vol] 94.8 fL High 80-94 [facility] Comment on above: Performed By: #### L 100.0100, [id number], L500.2500 #### [facility] [address] [place], [address] Monocytes/100 WBC (Bld) 14.8 % High 0-10 [facility] Comment on above: Performed By: #### L 100.0100, [id number], L500.2500 #### [facility] [address] [place], [address] Neutrophils/100 WBC (Bld) 51.0 % Normal 47-70 [facility] Comment on above: Performed By: #### L 100.0100, [id number], L500.2500 #### [facility] [address] [place], [address] Nucleated RBC (Bld) [#/Vol] 0 10*3/uL Normal 0-5 [facility] Comment on above: Performed By: #### L 100.0100, [id number], L500.2500 #### [facility] [address] [place], [address] Platelet mean volume (Bld) [Entitic vol] 11.0 fL Normal 6.2-12.0 [facility] Comment on above: Performed By: #### L 100.0100, [id number], L500.2500 #### [facility] [address] [place], [address] Platelets (Bld) [#/Vol] 179 10*3/uL Normal 150-450 [facility] Comment on above: Performed By: #### L 100.0100, [id number], L500.2500 #### [facility] [address] [place], [address] RBC (Bld) [#/Vol] 2.71 10*6/uL Low 4.6-6.2 [facility] Comment on above: Performed By: #### L 100.0100, [id number], L500.2500 #### [facility] [address] [place], [address] RDW SD 55.3 fl High 35.1-43.9 [facility] Comment on above: Performed By: #### L 100.0100, [id number], L500.2500 #### [facility] [address] [place], [address] WBC (Bld) [#/Vol] 4.9 10*3/uL Normal 4.4-11.0 [facility] Comment on above: Performed By: #### L 100.0100, [id number], L500.2500 #### [facility] [address] [place], [address] Determination of erythrocyte mean corpuscular volume (MCV)on 02-17-2024 MCV (RBC) [Entitic vol] 94.8 fL 80-94 [facility] Erythrocyte distribution wid th ratioon 02-17-2024 Erythrocyte distribution width (RBC) [Ratio] 16.0 % 11.6-14.6 [facility] Erythrocyte distribution wid th standard deviationon 02-17-2024 Erythrocyte distribution width (RBC) [Entitic vol] 55.3 fL 35.1-43.9 [facility] Immature granulocytes/100 WB C Auto (Bld)on 02-17-2024 Immature granulocytes/100 WBC (Bld) 0.200 % 0.0-0.9 [facility] Comment on above: IG% - Immature Granu locytes (promyelocytes, myelocytes and metamyelocytes) > 1% indicates that a LEFT SHIFT is Present. Laboratory - Chemistry and C hemistry - challengeon 02-17-2024 CO2 [Moles/Vol] 29.0 mmol/L 21.0-32.0 [facility] Urea nitrogen/Creatinine [Mass ratio] 24.6 mg/mg 10-20 [facility] Laboratory - Hematology and Cell countson 02-17-2024 MCH (RBC) [Entitic mass] 30.6 pg 27.0-32.0 [facility] MCHC (RBC) [Mass/Vol] 32.3 g/dL 32-36 [facility] Nucleated RBC/100 WBC (Bld) [Ratio] 0 % 0-5 [facility] Platelet mean volume (Bld) [Entitic vol] 11.0 fL 6.2-12.0 [facility] Platelets (Bld) [#/Vol] 179 10*3/uL 150-450 [facility] No Panel Informationon 02-16 Estimated GFR (MDRD) Amer 86 mL/min >60 [facility] Comment on above: GFR Calc Estimated GFR (MDRD) Non-Af Amer 71 mL/min >60 [facility] Comment on above: Non- GFR Calc RBC Auto (Bld) [#/Vol]on RBC (Bld) [#/Vol] 2.71 10*6/uL 4.6-6.2 [facility] Serum or plasma calcium soham urement (mass/volume)on 02-17-2024 Calcium [Mass/Vol] 8.5 mg/dL 8.5-10.1 [facility] Serum or plasma creatinine m easurement (mass/volume)on 02-17-2024 Creatinine [Mass/Vol] 1.26 mg/dL 0.70-1.30 [facility] Comment on above: The validity of the calculated GFR & GFRAA in patients over 70 years has not been determined. Clinical correlation is essential. Serum or plasma urea nitroge n measurement (mass/volume)on 02-17-2024 Urea nitrogen [Mass/Vol] 31 mg/dL 7-18 [facility] Serum or plasma vancomycin m easurement (mass/volume)on 02-17-2024 Vancomycin [Mass/Vol] 33.5 ug/mL 0.0-15.0 [facility] Comment on above: VANCOMYCIN STANDARD DRUG THERAPY: CRITICAL VALUE IS > 15.0 mg/L VANCOMYCIN HIGH INTENSITY THERAPY: CRITICAL VALUE IS > 20.0 mg/L PLEASE CONTACT PHARMACY SERVICES (#[id number]) FOR INTERPRETATIONOF RESULTS. THIS RESULT DOES NOT REPRESENT A PEAK OR TROUGHLEVEL FOR THIS DRUG. Thin prep Papanicolaou smear with manual screeningon 02-17-2024 Thin prep Papanicolaou smear with manual screening 5 5-15 [facility] VANCOMYCIN LEVELon Vancomycin, result 33.5 Abnormal 0 - 15 [facility] Vancomycin, Random Levelon 0 02-17-2024 VANCO, RANDOM 33.5 ug/mL High 0.0-15.0 [facility] Comment on above: Order Comment: PT DO DEBORAH TIME 0800 AND 1999. Result Comment: VANC OMYCIN STANDARD DRUG THERAPY: CRITICAL VALUE IS > 15.0 mg/L VANCOMYCIN HIGH INTENSITY THERAPY: CRITICAL VALUE IS > 20.0 mg/L PLEASE CONTACT PHARMACY SERVICES (#[id number]) FOR INTERPRETATION OF RESULTS. THIS RESULT DOES NOT REPRESENT A PEAK OR TROUGH LEVEL FOR THIS DRUG. Performed By: #### L 100.0100, L501.8850, L500.2500 #### [facility] [address] [place], [place], [id number] RETIC COUNTon 08-18-2023 Reticulocytes (Bld) [#/Vol] 0.02008 10*3/uL 0.018 - 0.100 M/uL [facility] Reticulocytes (Bld) [#/Vol]o n 08-18-2023 Reticulocytes/100 RBC (Bld) 2.6 % High 0.4 - 2.0 % [facility] Comprehensive metabolic 2000 panelon 08-07-2023 Albumin [Mass/Vol] 2.7 g/dL Low 3.9 - 4.9 g/dL [facility] ALP [Catalytic activity/Vol] 627 U/L High 38 - 113 U/L [facility] ALT With P-5'-P [Catalytic activity/Vol] 67 U/L High 10 - 54 U/L [facility] Anion gap [Moles/Vol] 6 mmol/L Low 9 - 18 mmol/L [facility] AST With P-5'-P [Catalytic activity/Vol] 87 U/L High 14 - 40 U/L [facility] Bilirubin [Mass/Vol] 1.3 mg/dL 0.2 - 1 .3 mg/dL [facility] Calcium [Mass/Vol] 9.0 mg/dL 8.5 - 10. 2 mg/dL [facility] Chloride [Moles/Vol] 101 mmol/L 97 - 10 5 mmol/L [facility] CO2 [Moles/Vol] 23 mmol/L 22 - 30 mmol/L [facility] Creatinine [Mass/Vol] 1.13 mg/dL 0.73 - 1.22 mg/dL [facility] Estimated Glomerular Filtration Rate 90 mL/min/1.73m >=60 mL/min/1.73m [facility] Glucose [Mass/Vol] 116 mg/dL High 74 - 99 mg/dL [facility] Potassium [Moles/Vol] 5.1 mmol/L 3.7 - 5.1 mmol/L [facility] Protein [Mass/Vol] 8.6 g/dL High 6.3 - 8.0 g/dL [facility] Sodium [Moles/Vol] 130 mmol/L Low 136 - 144 mmol/L [facility] Urea nitrogen [Mass/Vol] 23 mg/dL 9 - 24 mg/dL [facility] Respiratory pathogens DNA an d RNA 12b panel PABLO+probe (Unsp spec)on 07-02-2023 Adenovirus hexon gene PABLO+probe Ql (Nph) Not detected Not detected [facility] B. parapertussis DNA PABLO+probe Ql (Unsp spec) Not detected Not detected [facility] B. pertussis DNA PABLO+probe Ql (Unsp spec) Not detected Not detected [facility] C. pneumoniae DNA PABLO+probe Ql (Unsp spec) Not detected Not detected [facility] FLUAV RNA PABLO+probe Ql (Unsp spec) Not detected Not detected [facility] FLUBV RNA PABLO+probe Ql (Unsp spec) Not detected Not detected [facility] HCoV [id number] RNA PABLO+probe Ql (Nph) Not detected Not detected [facility] HCoV HKU1 RNA PABLO+probe Ql (Unsp spec) Not detected Not detected [facility] HCoV NL63 RNA PABLO+non-probe Ql (Nph) Not detected Not detected [facility] HCoV OC43 RNA PABLO+probe Ql (Unsp spec) Not detected Not detected [facility] hMPV RNA PABLO+probe Ql (Unsp spec) Not detected Not detected [facility] M. pneumoniae DNA PABLO+probe Ql (Unsp spec) Not detected Not detected [facility] Parainfluenza virus 1 RNA PABLO+probe Ql (Unsp spec) Not detected Not detected [facility] Parainfluenza virus 2 RNA PABLO+probe Ql (Unsp spec) Not detected Not detected [facility] Parainfluenza virus 3 RNA PABLO+probe Ql (Unsp spec) Not detected Not detected [facility] Parainfluenza virus 4 P gene PABLO+probe Ql (Nph) Not detected Not detected [facility] Rhinovirus 5' UTR RNA PABLO+probe Ql (Nph) Not detected Not detected [facility] RSV RNA PABLO+probe Ql (Upper resp) Not detected Not detected [facility] SARS-CoV-2 (COVID-19) RNA PABLO+probe Ql (Resp) Not detected See comment [facility] XR ABDOMEN 1V SUPINEon 07-02 [facility] XR ABDOMEN 1V SUPINEon 06-02 [facility] Respiratory pathogens DNA an d RNA 12b panel PABLO+probe (Unsp spec)on 03-19-2023 Adenovirus hexon gene PABLO+probe Ql (Nph) Not detected Not detected [facility] B. parapertussis DNA PABLO+probe Ql (Unsp spec) Not detected Not detected [facility] B. pertussis DNA PABLO+probe Ql (Unsp spec) Not detected Not detected [facility] C. pneumoniae DNA PABLO+probe Ql (Unsp spec) Not detected Not detected [facility] FLUAV RNA PABLO+probe Ql (Unsp spec) Not detected Not detected [facility] FLUBV RNA PABLO+probe Ql (Unsp spec) Not detected Not detected [facility] HCoV [id number] RNA PABLO+probe Ql (Nph) Not detected Not detected [facility] HCoV HKU1 RNA PABLO+probe Ql (Unsp spec) Not detected Not detected [facility] HCoV NL63 RNA PABLO+non-probe Ql (Nph) Not detected Not detected [facility] HCoV OC43 RNA PABLO+probe Ql (Unsp spec) Not detected Not detected [facility] hMPV RNA PABLO+probe Ql (Unsp spec) Not detected Not detected [facility] M. pneumoniae DNA PABLO+probe Ql (Unsp spec) Not detected Not detected [facility] Parainfluenza virus 1 RNA PABLO+probe Ql (Unsp spec) Not detected Not detected [facility] Parainfluenza virus 2 RNA PABLO+probe Ql (Unsp spec) Not detected Not detected [facility] Parainfluenza virus 3 RNA PABLO+probe Ql (Unsp spec) Detected Abnormal Not detected [facility] Parainfluenza virus 4 P gene PABLO+probe Ql (Nph) Not detected Not detected [facility] Rhinovirus 5' UTR RNA PABLO+probe Ql (Nph) Not detected Not detected [facility] RSV RNA PABLO+probe Ql (Upper resp) Not detected Not detected [facility] SARS-CoV-2 (COVID-19) RNA PABLO+probe Ql (Resp) Not detected See comment [facility] SPIROMETRY BASELINE ONLYon 0 03-05-2023 UQX69-98% PRE (L/S) 0.25 L/S [facility] FEV1 PRE (L) 0.86 L [facility] FEV1/FVC PRE (%) 35 % [facility] FVC PRE (L) 2.43 L [facility] PEF PRE (L/S) 3.95 L/S [facility] CBC W Auto Differential pane l (Bld)on 02-26-2023 Basophils (Bld) [#/Vol] 0.07 10*3/uL <0.11 k/uL [facility] Basophils/100 WBC (Bld) 1.5 % [facility] Differential cell count method Nom (Bld) Auto [facility] Eosinophils (Bld) [#/Vol] 0.17 10*3/uL <0.46 k/uL [facility] Eosinophils/100 WBC (Bld) 3.7 % [facility] Erythrocyte distribution width (RBC) [Ratio] 13.7 % 11.5 - 15.0 % [facility] Hematocrit (Bld) [Volume fraction] 38.6 % Low 39.0 - 51.0 % [facility] Hemoglobin (Bld) [Mass/Vol] 13.3 g/dL 13.0 - 17.0 g/dL [facility] Immature granulocytes (Bld) [#/Vol] <0.10 k/uL [facility] Immature granulocytes/100 WBC (Bld) 0.4 % [facility] Lymphocytes (Bld) [#/Vol] 0.97 10*3/uL Low 1.00 - 4.00 k/uL [facility] Lymphocytes/100 WBC (Bld) 21.0 % [facility] MCH (RBC) [Entitic mass] 31.5 pg 26.0 - 34.0 pg [facility] MCHC (RBC) [Mass/Vol] 34.5 g/dL 30.5 - 36.0 g/dL [facility] MCV (RBC) [Entitic vol] 91.5 fL 80.0 - 100.0 fL [facility] Monocytes (Bld) [#/Vol] 0.36 10*3/uL <0.87 k/uL [facility] Monocytes/100 WBC (Bld) 7.8 % [facility] Neutrophils (Bld) [#/Vol] 3.03 10*3/uL 1.45 - 7.50 k/uL [facility] Neutrophils/100 WBC (Bld) 65.6 % [facility] Nucleated RBC (Bld) [#/Vol] <0.01 k/uL [facility] Nucleated RBC/100 WBC (Bld) [Ratio] 0.0 /100 WBC [facility] Platelet mean volume (Bld) [Entitic vol] 9.5 fL 9.0 - 12.7 fL [facility] Platelets (Bld) [#/Vol] 241 10*3/uL 150 - 400 k/uL [facility] RBC (Bld) [#/Vol] 4.22 10*6/uL 4.20 - 6.0 0 m/uL [facility] WBC (Bld) [#/Vol] 4.62 10*3/uL 3.70 - 11. 00 k/uL [facility] PT panel Coag (PPP)on 2022 INR Coag (PPP) [Relative time] 1.3 {INR} 0.9 - 1.3 [facility] PT Coag (PPP) [Time] 13.5 s High 9.7 - 1 3.0 sec [facility] Comprehensive metabolic 2000 panelon 12-04-2022 Albumin [Mass/Vol] 3.1 g/dL Low 3.9 - 4.9 g/dL [facility] ALP [Catalytic activity/Vol] 992 U/L High 38 - 113 U/L [facility] ALT [Catalytic activity/Vol] 131 U/L High 10 - 54 U/L [facility] Anion gap [Moles/Vol] 6 mmol/L Low 9 - 18 mmol/L [facility] AST [Catalytic activity/Vol] 140 U/L High 14 - 40 U/L [facility] Bilirubin [Mass/Vol] 1.4 mg/dL High 0.2 - 1 .3 mg/dL [facility] Calcium [Mass/Vol] 9.1 mg/dL 8.5 - 10. 2 mg/dL [facility] Chloride [Moles/Vol] 96 mmol/L Low 97 - 10 5 mmol/L [facility] CO2 [Moles/Vol] 32 mmol/L High 22 - 30 mmol/L [facility] Creatinine [Mass/Vol] 0.78 mg/dL 0.73 - 1.22 mg/dL [facility] Estimated Glomerular Filtration Rate 124 mL/min/1.73m >=60 mL/min/1.73m [facility] Glucose [Mass/Vol] 195 mg/dL High 74 - 99 mg/dL [facility] Potassium [Moles/Vol] 4.1 mmol/L 3.7 - 5.1 mmol/L [facility] Protein [Mass/Vol] 7.7 g/dL 6.3 - 8.0 g/dL [facility] Sodium [Moles/Vol] 134 mmol/L Low 136 - 144 mmol/L [facility] Urea nitrogen [Mass/Vol] 13 mg/dL 9 - 24 mg/dL [facility] MAGNESIUM BLDon 12-04-2022 Magnesium [Mass/Vol] 1.6 mg/dL Low 1.7 - 2 .3 mg/dL [facility] CBC W Auto Differential pane l (Bld)on 12-03-2022 Basophils (Bld) [#/Vol] 0.07 10*3/uL <0.11 k/uL [facility] Basophils/100 WBC (Bld) 0.7 % [facility] Differential cell count method Nom (Bld) Auto [facility] Eosinophils (Bld) [#/Vol] 1.54 10*3/uL High <0.46 k/uL [facility] Eosinophils/100 WBC (Bld) 15.0 % [facility] Erythrocyte distribution width (RBC) [Ratio] 13.9 % 11.5 - 15.0 % [facility] Hematocrit (Bld) [Volume fraction] 34.0 % Low 39.0 - 51.0 % [facility] Hemoglobin (Bld) [Mass/Vol] 11.9 g/dL Low 13.0 - 17.0 g/dL [facility] Immature granulocytes (Bld) [#/Vol] 0.03 10*3/uL <0.10 k/uL [facility] Immature granulocytes/100 WBC (Bld) 0.3 % [facility] Lymphocytes (Bld) [#/Vol] 3.60 10*3/uL 1.00 - 4.00 k/uL [facility] Lymphocytes/100 WBC (Bld) 35.0 % [facility] MCH (RBC) [Entitic mass] 31.3 pg 26.0 - 34.0 pg [facility] MCHC (RBC) [Mass/Vol] 35.0 g/dL 30.5 - 36.0 g/dL [facility] MCV (RBC) [Entitic vol] 89.5 fL 80.0 - 100.0 fL [facility] Monocytes (Bld) [#/Vol] 0.98 10*3/uL High <0.87 k/uL [facility] Monocytes/100 WBC (Bld) 9.5 % [facility] Neutrophils (Bld) [#/Vol] 4.08 10*3/uL 1.45 - 7.50 k/uL [facility] Neutrophils/100 WBC (Bld) 39.5 % [facility] Nucleated RBC (Bld) [#/Vol] <0.01 k/uL [facility] Nucleated RBC/100 WBC (Bld) [Ratio] 0.0 /100 WBC [facility] Platelet mean volume (Bld) [Entitic vol] 9.7 fL 9.0 - 12.7 fL [facility] Platelets (Bld) [#/Vol] 214 10*3/uL 150 - 400 k/uL [facility] RBC (Bld) [#/Vol] 3.80 10*6/uL Low 4.20 - 6.0 0 m/uL [facility] WBC (Bld) [#/Vol] 10.30 10*3/uL 3.70 - 11 .00 k/uL [facility] VANCOMYCINon 12-03-2022 Vancomycin random [Mass/Vol] Low 10.0 - 20.0 ug/mL [facility] VANCOMYCINon 11-28-2022 Vancomycin random [Mass/Vol] 5.3 ug/mL Low 10.0 - 20.0 ug/mL [facility] Absolute lymphocyte counton 11-26-2022 Lymphocytes Auto (Unsp spec) [#/Vol] 1.31 10*3/uL 0.83-4.51 [facility] Work Phone: Automated blood hematocrit ( percentage)on 11-26-2022 Hematocrit (Bld) [Volume fraction] 30.8 % 40-54 [facility] Basophil percentageon 2021 Basophils/100 WBC (Bld) 1.6 % 0-1 [facility] Work Phone: Bilirubin [Mass/Vol] 0.80 mg/dL 0.20-1.00 [facility] Comment on above: For patients on eltr ombopag therapy, use of Dimension [place] TBIL is not recommended. Chloride [Moles/Vol] 101 mmol/L 98-107 [facility] Work Phone: Eosinophils/100 WBC (Bld) 16.6 % 0-5 [facility] Glucose [Mass/Vol] 388 mg/dL 74-106 [facility] Work Phone: Comment on above: Glucose result great er than or equal to 200 mg/dLsuggests DIABETES MELLITUS per A.D.A. criteria. Neutrophils (Bld) [#/Vol] 2.3 10*3/uL 2.0-7.7 [facility] Work Phone: Neutrophils/100 WBC (Bld) 47.2 % 47-70 [facility] Potassium [Moles/Vol] 4.4 mmol/L 3.5-5.1 [facility] Protein [Mass/Vol] 8.1 g/dL 6.4-8.2 [facility] Work Phone: Sodium [Moles/Vol] 131 mmol/L 136-145 [facility] Work Phone: WBC (Bld) [#/Vol] 4.9 10*3/uL 4.4-11.0 [facility] Blood erythrocytes count (nu mber/volume)on 11-26-2022 RBC (Bld) [#/Vol] 3.38 10*6/uL 4.6-6.2 [facility] Work Phone: Blood hemoglobin measurement (mass/volume)on 11-26-2022 Hemoglobin (Bld) [Mass/Vol] 10.2 g/dL 13.0-16.5 [facility] Blood lymphocytes/100 leukoc yteson 11-26-2022 Lymphocytes/100 WBC (Bld) 26.5 % 19-41 [facility] Work Phone: Blood monocytes/100 leukocyt eson 11-26-2022 Monocytes/100 WBC (Bld) 7.9 % 0-10 [facility] Work Phone: Blood platelet mean volumeon 11-26-2022 Platelet mean volume (Bld) [Entitic vol] 9.4 fL 6.2-12.0 [facility] Work Phone: CBC W Auto Differential pane l (Bld)on 11-26-2022 Abs Neut (ANC) 2.3 K/uL 2 - 7.7 K/uL [facility] Comprehensive metabolic 2000 panelon 11-26-2022 AST [Catalytic activity/Vol] 145 U/L Abnormal 15 - 37 [facility] Determination of erythrocyte mean corpuscular volume (MCV)on 11-26-2022 MCV (RBC) [Entitic vol] 91.1 fL 80-94 [facility] Work Phone: Laboratory - Chemistry and C hemistry - challengeon 11-26-2022 ALP [Catalytic activity/Vol] 1147 U/L 45-117 [facility] ALT [Catalytic activity/Vol] 145 U/L 16-61 [facility] CO2 [Moles/Vol] 27.0 mmol/L 21.0-32.0 [facility] Work Phone: Globulin (S) [Mass/Vol] 5.8 g/dL 2.2-4.2 [facility] Work Phone: Magnesium [Mass/Vol] 1.8 mg/dL 1.6-2.6 [facility] Work Phone: Urea nitrogen/Creatinine [Mass ratio] 12.9 mg/mg 10-20 [facility] Work Phone: Laboratory - Hematology and Cell countson 11-26-2022 Erythrocyte distribution width (RBC) [Entitic vol] 42.1 fL 35.1-43.9 [facility] Work Phone: Erythrocyte distribution width (RBC) [Ratio] 13.1 % 11.6-14.6 [facility] Work Phone: Immature granulocytes/100 WBC (Bld) 0.200 % 0.0-0.9 [facility] Work Phone: Comment on above: IG% - Immature Granu locytes (promyelocytes, myelocytes and metamyelocytes) > 1% indicates that a LEFT SHIFT is Present. MCH (RBC) [Entitic mass] 30.2 pg 27.0-32.0 [facility] Work Phone: Nucleated RBC/100 WBC (Bld) [Ratio] 0 % 0-5 [facility] Work Phone: MCHC Auto (RBC) [Mass/Vol]on 11-26-2022 MCHC (RBC) [Mass/Vol] 33.1 g/dL 32-36 [facility] Work Phone: Magnesium [Mass/Vol]on 11-26 Magnesium.plasma/Magn esium.RBC (Bld) [Molar ratio] 1.8 1.6 - 2.6 [facility] No Panel Informationon 11-26 Estimated GFR (MDRD) Amer 96 mL/min >60 [facility] Work Phone: Comment on above: GFR Calc Estimated GFR (MDRD) Non-Af Amer 79 mL/min >60 [facility] Work Phone: Comment on above: Non- GFR Calc Platelets bldon 11-26-2022 Platelets (Bld) [#/Vol] 196 10*3/uL 150-450 [facility] Serum or plasma albumin soham urement (mass/volume)on 11-26-2022 Albumin [Mass/Vol] 2.3 g/dL 3.2-5.0 [facility] Work Phone: Serum or plasma albumin/glob ulin mass ratioon 11-26-2022 Albumin/Globulin [Mass ratio] 0.4 {ratio} 0.9-2.4 [facility] Work Phone: Serum or plasma calcium soham urement (mass/volume)on 11-26-2022 Calcium [Mass/Vol] 8.7 mg/dL 8.5-10.1 [facility] Work Phone: Serum or plasma creatinine m easurement (mass/volume)on 11-26-2022 Creatinine [Mass/Vol] 1.16 mg/dL 0.70-1.30 [facility] Comment on above: The validity of the calculated GFR & GFRAA in patients over 70 years has not been determined. Clinical correlation is essential. Serum or plasma urea nitroge n measurement (mass/volume)on 11-26-2022 Urea nitrogen [Mass/Vol] 15 mg/dL 7-18 [facility] Work Phone: Thin prep Papanicolaou smear with manual screeningon 11-26-2022 Thin prep Papanicolaou smear with manual screening 145 U/L 15-37 [facility] Work Phone: Thin prep Papanicolaou smear with manual screening 3 5-15 [facility] Work Phone: SPIROMETRY BASELINE ONLYon 1 01-21-2022 [id number]% PRE (L/S) 0.22 L/S [facility] FEV1 PRE (L) 0.82 L [facility] FEV1/FVC PRE (%) 35 % [facility] FVC PRE (L) 2.34 L [facility] PEF PRE (L/S) 3.81 L/S [facility] Absolute lymphocyte counton 11-18-2022 Lymphocytes Auto (Unsp spec) [#/Vol] 1.49 10*3/uL 0.83-4.51 [facility] Work Phone: Basophil percentageon 2021 Basophils/100 WBC (Bld) 1.2 % 0-1 [facility] Work Phone: Bilirubin [Mass/Vol] 1.50 mg/dL 0.20-1.00 [facility] Work Phone: Comment on above: For patients on eltr ombopag therapy, use of Dimension [place] TBIL is not recommended. Chloride [Moles/Vol] 103 mmol/L 98-107 [facility] Work Phone: Eosinophils/100 WBC (Bld) 12.6 % 0-5 [facility] Work Phone: Glucose [Mass/Vol] 400 mg/dL 74-106 [facility] Work Phone: Comment on above: Glucose result great er than or equal to 200 mg/dLsuggests DIABETES MELLITUS per A.D.A. criteria. Neutrophils (Bld) [#/Vol] 3.5 10*3/uL 2.0-7.7 [facility] Work Phone: Neutrophils/100 WBC (Bld) 53.9 % 47-70 [facility] Work Phone: [phone] Potassium [Moles/Vol] 4.8 mmol/L 3.5-5.1 [facility] Work Phone: Protein [Mass/Vol] 8.5 g/dL 6.4-8.2 [facility] Work Phone: [phone] Sodium [Moles/Vol] 133 mmol/L 136-145 [facility] Work Phone: WBC (Bld) [#/Vol] 6.4 10*3/uL 4.4-11.0 [facility] Work Phone: Blood erythrocytes count (nu mber/volume)on 11-18-2022 RBC (Bld) [#/Vol] 3.60 10*6/uL 4.6-6.2 [facility] Work Phone: [phone] Blood hemoglobin measurement (mass/volume)on 11-18-2022 Hemoglobin (Bld) [Mass/Vol] 11.0 g/dL 13.0-16.5 [facility] Work Phone: Blood lymphocytes/100 leukoc yteson 11-18-2022 Lymphocytes/100 WBC (Bld) 23.2 % 19-41 [facility] Work Phone: Blood monocytes/100 leukocyt eson 11-18-2022 Monocytes/100 WBC (Bld) 8.6 % 0-10 [facility] Work Phone: Blood platelet mean volumeon 11-18-2022 Platelet mean volume (Bld) [Entitic vol] 9.1 fL 6.2-12.0 [facility] Work Phone: Determination of erythrocyte mean corpuscular volume (MCV)on 11-18-2022 MCV (RBC) [Entitic vol] 92.2 fL 80-94 [facility] Work Phone: Hematocrit Auto (Bld) [Volum e fraction]on 11-18-2022 Hematocrit (Bld) [Volume fraction] 33.2 % 40-54 [facility] Work Phone: [phone] Laboratory - Chemistry and C hemistry - challengeon 11-18-2022 ALP [Catalytic activity/Vol] 987 U/L 45-117 [facility] Work Phone: ALT [Catalytic activity/Vol] 94 U/L 16-61 [facility] Work Phone: CO2 [Moles/Vol] 25.0 mmol/L 21.0-32.0 [facility] Work Phone: Globulin (S) [Mass/Vol] 6.5 g/dL 2.2-4.2 [facility] Work Phone: Magnesium [Mass/Vol] 1.8 mg/dL 1.6-2.6 [facility] Work Phone: Urea nitrogen/Creatinine [Mass ratio] 21.8 mg/mg 10-20 [facility] Work Phone: Laboratory - Hematology and Cell countson 11-18-2022 Erythrocyte distribution width (RBC) [Entitic vol] 42.8 fL 35.1-43.9 [facility] Work Phone: Erythrocyte distribution width (RBC) [Ratio] 12.8 % 11.6-14.6 [facility] Work Phone: Immature granulocytes/100 WBC (Bld) 0.500 % 0.0-0.9 [facility] Work Phone: Comment on above: IG% - Immature Granu locytes (promyelocytes, myelocytes and metamyelocytes) > 1% indicates that a LEFT SHIFT is Present. MCH (RBC) [Entitic mass] 30.6 pg 27.0-32.0 [facility] Work Phone: Nucleated RBC/100 WBC (Bld) [Ratio] 0 % 0-5 [facility] Work Phone: MCHC Auto (RBC) [Mass/Vol]on 11-18-2022 MCHC (RBC) [Mass/Vol] 33.1 g/dL 32-36 [facility] Work Phone: No Panel Informationon 11-18 Estimated GFR (MDRD) Amer 112 mL/min >60 [facility] Work Phone: Comment on above: GFR Calc Estimated GFR (MDRD) Non-Af Amer 93 mL/min >60 [facility] Work Phone: Comment on above: Non- GFR Calc Platelets bldon 11-18-2022 Platelets (Bld) [#/Vol] 300 10*3/uL 150-450 [facility] Work Phone: Serum or plasma albumin soham urement (mass/volume)on 11-18-2022 Albumin [Mass/Vol] 2.0 g/dL 3.2-5.0 [facility] Work Phone: Serum or plasma albumin/glob ulin mass ratioon 11-18-2022 Albumin/Globulin [Mass ratio] 0.3 {ratio} 0.9-2.4 [facility] Work Phone: Serum or plasma calcium soham urement (mass/volume)on 11-18-2022 Calcium [Mass/Vol] 8.5 mg/dL 8.5-10.1 [facility] Work Phone: Serum or plasma creatinine m easurement (mass/volume)on 11-18-2022 Creatinine [Mass/Vol] 1.01 mg/dL 0.70-1.30 [facility] Work Phone: Comment on above: The validity of the calculated GFR & GFRAA in patients over 70 years has not been determined. Clinical correlation is essential. Serum or plasma urea nitroge n measurement (mass/volume)on 11-18-2022 Urea nitrogen [Mass/Vol] 22 mg/dL 7-18 [facility] Work Phone: Thin prep Papanicolaou smear with manual screeningon 11-18-2022 Thin prep Papanicolaou smear with manual screening 207 U/L 15-37 [facility] Work Phone: Thin prep Papanicolaou smear with manual screening 5 5-15 [facility] Work Phone: Absolute lymphocyte counton 11-15-2022 Lymphocytes Auto (Unsp spec) [#/Vol] 1.66 10*3/uL 0.83-4.51 [facility] Work Phone: Basophil percentageon 2021 Basophils/100 WBC (Bld) 1.2 % 0-1 [facility] Work Phone: Bilirubin [Mass/Vol] 0.60 mg/dL 0.20-1.00 [facility] Work Phone: Comment on above: For patients on eltr ombopag therapy, use of Dimension [place] TBIL is not recommended. Chloride [Moles/Vol] 105 mmol/L 98-107 [facility] Work Phone: Eosinophils/100 WBC (Bld) 8.6 % 0-5 [facility] Work Phone: Glucose [Mass/Vol] 375 mg/dL 74-106 [facility] Work Phone: [phone] Comment on above: Glucose result great er than or equal to 200 mg/dLsuggests DIABETES MELLITUS per A.D.A. criteria. Neutrophils (Bld) [#/Vol] 4.2 10*3/uL 2.0-7.7 [facility] Work Phone: [phone] Neutrophils/100 WBC (Bld) 56.9 % 47-70 [facility] Work Phone: [phone] Potassium [Moles/Vol] 5.2 mmol/L 3.5-[facility]: [phone] Protein [Mass/Vol] 8.9 g/dL 6.4-8.2 [facility] Work Phone: [phone] Sodium [Moles/Vol] 132 mmol/L 136-145 [facility] Work Phone: [phone] WBC (Bld) [#/Vol] 7.4 10*3/uL 4.4-11.0 [facility] Work Phone: Blood erythrocytes count (nu mber/volume)on 11-15-2022 RBC (Bld) [#/Vol] 3.68 10*6/uL 4.6-6.2 [facility]: Blood hemoglobin measurement (mass/volume)on 11-15-2022 Hemoglobin (Bld) [Mass/Vol] 11.2 g/dL 13.0-16.5 [facility] Work Phone: [phone] Blood lymphocytes/100 leukoc yteson 11-15-2022 Lymphocytes/100 WBC (Bld) 22.6 % 19-41 [facility] Work Phone: [phone] Blood monocytes/100 leukocyt eson 11-15-2022 Monocytes/100 WBC (Bld) 9.9 % 0-10 [facility] Work Phone: [phone] Blood platelet mean volumeon 11-15-2022 Platelet mean volume (Bld) [Entitic vol] 9.0 fL 6.2-12.0 [facility] Work Phone: Determination of erythrocyte mean corpuscular volume (MCV)on 11-15-2022 MCV (RBC) [Entitic vol] 92.7 fL 80-94 [facility] Work Phone: Hematocrit Auto (Bld) [Volum e fraction]on 11-15-2022 Hematocrit (Bld) [Volume fraction] 34.1 % 40-54 [facility] Work Phone: Laboratory - Chemistry and C hemistry - challengeon 11-15-2022 ALP [Catalytic activity/Vol] 947 U/L 45-117 [facility] Work Phone: ALT [Catalytic activity/Vol] 67 U/L 16-61 [facility] Work Phone: CO2 [Moles/Vol] 30.0 mmol/L 21.0-32.0 [facility] Work Phone: Globulin (S) [Mass/Vol] 7.0 g/dL 2.2-4.2 [facility] Work Phone: Urea nitrogen/Creatinine [Mass ratio] 17.9 mg/mg 10-20 [facility] Work Phone: Laboratory - Hematology and Cell countson 11-15-2022 Erythrocyte distribution width (RBC) [Entitic vol] 43.6 fL 35.1-43.9 [facility] Work Phone: Erythrocyte distribution width (RBC) [Ratio] 12.9 % 11.6-14.6 [facility] Work Phone: Immature granulocytes/100 WBC (Bld) 0.800 % 0.0-0.9 [facility] Work Phone: Comment on above: IG% - Immature Granu locytes (promyelocytes, myelocytes and metamyelocytes) > 1% indicates that a LEFT SHIFT is Present. MCH (RBC) [Entitic mass] 30.4 pg 27.0-32.0 [facility] Work Phone: Nucleated RBC/100 WBC (Bld) [Ratio] 0 % 0-5 [facility] Work Phone: MCHC Auto (RBC) [Mass/Vol]on 11-15-2022 MCHC (RBC) [Mass/Vol] 32.8 g/dL 32-36 [facility] Work Phone: No Panel Informationon 11-15 Estimated GFR (MDRD) Amer 129 mL/min >60 [facility] Work Phone: Comment on above: GFR Calc Estimated GFR (MDRD) Non-Af Amer 107 mL/min >60 [facility] Work Phone: Comment on above: Non- GFR Calc Platelets bldon 11-15-2022 Platelets (Bld) [#/Vol] 327 10*3/uL 150-450 [facility] Work Phone: Serum or plasma albumin soham urement (mass/volume)on 11-15-2022 Albumin [Mass/Vol] 1.9 g/dL 3.2-5.0 [facility] Work Phone: Serum or plasma albumin/glob ulin mass ratioon 11-15-2022 Albumin/Globulin [Mass ratio] 0.3 {ratio} 0.9-2.4 [facility] Work Phone: Serum or plasma calcium soham urement (mass/volume)on 11-15-2022 Calcium [Mass/Vol] 8.8 mg/dL 8.5-10.1 [facility] Work Phone: Serum or plasma creatinine m easurement (mass/volume)on 11-15-2022 Creatinine [Mass/Vol] 0.89 mg/dL 0.70-1.30 [facility] Work Phone: Comment on above: The validity of the calculated GFR & GFRAA in patients over 70 years has not been determined. Clinical correlation is essential. Serum or plasma urea nitroge n measurement (mass/volume)on 11-15-2022 Urea nitrogen [Mass/Vol] 16 mg/dL 7-18 [facility] Work Phone: Thin prep Papanicolaou smear with manual screeningon 11-15-2022 Thin prep Papanicolaou smear with manual screening 150 U/L 15-37 [facility] Work Phone: Thin prep Papanicolaou smear with manual screening -3 5-15 [facility] Work Phone: Vancomycin troughon 11-15-20 Vancomycin trough [Mass/Vol] 27.6 ug/mL 5.0-15.0 [facility] Work Phone: Comment on above: VANCOMYCIN STANDARED DRUG THERAPY TROUGH LEVEL: 5.0 - 15.0 mg/L VANCOMYCIN HIGH INTENSITY THERAPY TROUGH LEVEL: 15.0 - 20.0 mg/L High Intensity therapy recommended for serious lifethreatening infections include:- Mkxgpudoyk-Bespthihdlvt-Qxytzgtee (Ventilator/Healtcare Associated)-Sepsis PLEASE CONTACT PHARMACY SERVICES (#[id number]) FOR INTERPRETATIONOF RESULTS. No Panel Informationon 08-07 Estimated GFR (MDRD) Amer 109 mL/min >60 [facility] Work Phone: Comment on above: GFR Calc Estimated GFR (MDRD) Non-Af Amer 90 mL/min >60 [facility] Work Phone: Comment on above: Non- GFR Calc Serum or plasma creatinine m easurement (mass/volume)on 08-07-2022 Creatinine [Mass/Vol] 1.04 mg/dL 0.70-1.30 [facility] Work Phone: Comment on above: The validity of the calculated GFR & GFRAA in patients over 70 years has not been determined. Clinical correlation is essential. Absolute lymphocyte counton 08-06-2022 Lymphocytes Auto (Unsp spec) [#/Vol] 1.83 10*3/uL 0.83-4.51 [facility] Work Phone: Automated blood hematocrit ( percentage)on 08-06-2022 Hematocrit (Bld) [Volume fraction] 34.3 % 40-54 [facility] Basophil percentageon 2021 Basophils/100 WBC (Bld) 1.6 % 0-1 [facility] Work Phone: Eosinophils/100 WBC (Bld) 7.9 % 0-5 [facility] Neutrophils (Bld) [#/Vol] 4.8 10*3/uL 2.0-7.7 [facility] Work Phone: Neutrophils/100 WBC (Bld) 57.5 % 47-70 [facility] WBC (Bld) [#/Vol] 8.4 10*3/uL 4.4-11.0 [facility] Blood erythrocytes count (nu mber/volume)on 08-06-2022 RBC (Bld) [#/Vol] 3.67 10*6/uL 4.6-6.2 [facility] Work Phone: Blood hemoglobin measurement (mass/volume)on 08-06-2022 Hemoglobin (Bld) [Mass/Vol] 11.5 g/dL 13.0-16.5 [facility] Blood lymphocytes/100 leukoc yteson 08-06-2022 Lymphocytes/100 WBC (Bld) 21.9 % 19-41 [facility] Work Phone: Blood monocytes/100 leukocyt eson 08-06-2022 Monocytes/100 WBC (Bld) 10.6 % 0-10 [facility] Work Phone: Blood platelet mean volumeon 08-06-2022 Platelet mean volume (Bld) [Entitic vol] 8.8 fL 6.2-12.0 [facility] Work Phone: CBC W Auto Differential pane l (Bld)on 08-06-2022 Abs Neut (ANC) 4.8 K/uL 2 - 7.7 [facility] Determination of erythrocyte mean corpuscular volume (MCV)on 08-06-2022 MCV (RBC) [Entitic vol] 93.5 fL 80-94 [facility] Work Phone: Laboratory - Hematology and Cell countson 08-06-2022 Erythrocyte distribution width (RBC) [Entitic vol] 43.7 fL 35.1-43.9 [facility] Work Phone: Erythrocyte distribution width (RBC) [Ratio] 12.6 % 11.6-14.6 [facility] Work Phone: Immature granulocytes/100 WBC (Bld) 0.500 % 0.0-0.9 [facility] Work Phone: Comment on above: IG% - Immature Granu locytes (promyelocytes, myelocytes and metamyelocytes) > 1% indicates that a LEFT SHIFT is Present. MCH (RBC) [Entitic mass] 31.3 pg 27.0-32.0 [facility] Work Phone: Nucleated RBC/100 WBC (Bld) [Ratio] 0 % 0-5 [facility] Work Phone: MCHC Auto (RBC) [Mass/Vol]on 08-06-2022 MCHC (RBC) [Mass/Vol] 33.5 g/dL 32-36 [facility] Work [facility]: Platelets bldon 08-06-2022 Platelets (Bld) [#/Vol] 422 10*3/uL 150-450 [facility] VANCOMYCIN PRE DOSEon 2021 Vancomycin Pre 19.5 Abnormal 5 - 15 [facility] Vancomycin troughon 08-06-20 22 Vancomycin trough [Mass/Vol] 19.5 ug/mL 5.0-15.0 [facility] Work Phone: Comment on above: VANCOMYCIN STANDARED DRUG THERAPY TROUGH LEVEL: 5.0 - 15.0 mg/L VANCOMYCIN HIGH INTENSITY THERAPY TROUGH LEVEL: 15.0 - 20.0 mg/L High Intensity therapy recommended for serious lifethreatening infections include:- Wtvzcshqfo-Idxdyajbzxsh-Zycuahvwi (Ventilator/Healtcare Associated)-Sepsis PLEASE CONTACT PHARMACY SERVICES (#[id number]) FOR INTERPRETATIONOF RESULTS. No Panel Informationon 07-25 [facility] C-REACTIVE PROTEIN (CRP)on 0 07-18-2022 CRP [Mass/Vol] 1.7 mg/dL High <0.9 mg/dL [facility] Comprehensive metabolic 2000 panelon 07-18-2022 Albumin [Mass/Vol] 2.8 g/dL Low 3.9 - 4.9 g/dL [facility] ALP [Catalytic activity/Vol] 1169 U/L High 38 - 113 U/L [facility] ALT [Catalytic activity/Vol] 20 U/L 10 - 54 U/L [facility] Anion gap [Moles/Vol] 7 mmol/L Low 9 - 18 mmol/L [facility] AST [Catalytic activity/Vol] 35 U/L 14 - 40 U/L [facility] Bilirubin [Mass/Vol] 1.0 mg/dL 0.2 - 1 .3 mg/dL [facility] Calcium [Mass/Vol] 8.7 mg/dL 8.5 - 10. 2 mg/dL [facility] Chloride [Moles/Vol] 95 mmol/L Low 97 - 10 5 mmol/L [facility] CO2 [Moles/Vol] 30 mmol/L 22 - 30 mmol/L [facility] Creatinine [Mass/Vol] 0.65 mg/dL Low 0.73 - 1.22 mg/dL [facility] Estimated Glomerular Filtration Rate 131 mL/min/1.73m >=60 mL/min/1.73m [facility] Glucose [Mass/Vol] 197 mg/dL High 74 - 99 mg/dL [facility] Potassium [Moles/Vol] 4.3 mmol/L 3.7 - 5.1 mmol/L [facility] Protein [Mass/Vol] 8.5 g/dL High 6.3 - 8.0 g/dL [facility] Sodium [Moles/Vol] 132 mmol/L Low 136 - 144 mmol/L [facility] Urea nitrogen [Mass/Vol] 12 mg/dL 9 - 24 mg/dL [facility] GGT [facility] 07-18-2022 Gamma glutamyl transferase [Catalytic activity/Vol] 1363 U/L High 10 - 70 U/L [facility] IGE [facility] 07-18-2022 IgE Qn 27.0 kU/l <114.0 kU/l [facility] CBC W Auto Differential pane l (Bld)on 2022 Abs Immature Gran <0.10 k/uL [facility] Basophils (Bld) [#/Vol] 0.07 10*3/uL <0.11 k/uL [facility] Basophils/100 WBC (Bld) 1.0 % [facility] Differential cell count method Nom (Bld) Auto [facility] Eosinophils (Bld) [#/Vol] 0.10 10*3/uL <0.46 k/uL [facility] Eosinophils/100 WBC (Bld) 1.4 % [facility] Erythrocyte distribution width (RBC) [Ratio] 13.2 % 11.5 - 15.0 % [facility] Hematocrit (Bld) [Volume fraction] 39.0 % 39.0 - 51.0 % [facility] Hemoglobin (Bld) [Mass/Vol] 12.8 g/dL Low 13.0 - 17.0 g/dL [facility] Immature Gran % 0.3 % [facility] Lymphocytes (Bld) [#/Vol] 0.91 10*3/uL Low 1.00 - 4.00 k/uL [facility] Lymphocytes/100 WBC (Bld) 12.6 % [facility] MCH (RBC) [Entitic mass] 31.0 pg 26.0 - 34.0 pg [facility] MCHC (RBC) [Mass/Vol] 32.8 g/dL 30.5 - 36.0 g/dL [facility] MCV (RBC) [Entitic vol] 94.4 fL 80.0 - 100.0 fL [facility] Monocytes (Bld) [#/Vol] 0.39 10*3/uL <0.87 k/uL [facility] Monocytes/100 WBC (Bld) 5.4 % [facility] Neutrophils (Bld) [#/Vol] 5.75 10*3/uL 1.45 - 7.50 k/uL [facility] Neutrophils/100 WBC (Bld) 79.3 % [facility] Nucleated RBC (Bld) [#/Vol] <0.01 k/uL [facility] Nucleated RBC/100 WBC (Bld) [Ratio] 0.0 /100 WBC [facility] Platelet mean volume (Bld) [Entitic vol] 9.2 fL 9.0 - 12.7 fL [facility] Platelets (Bld) [#/Vol] 232 10*3/uL 150 - 400 k/uL [facility] RBC (Bld) [#/Vol] 4.13 10*6/uL Low 4.20 - 6.0 0 m/uL [facility] WBC (Bld) [#/Vol] 7.24 10*3/uL 3.70 - 11. 00 k/uL [facility] HbA1c (Bld)on 2022 Average glucose Estimated from glycated hemoglobin (Bld) [Mass/Vol] 200 mg/dL [facility] HbA1c (Bld) [Mass fraction] 8.6 % High 4.3 - 5.6 % [facility] PT panel Coag (PPP)on 2021 INR Coag (PPP) [Relative time] 1.1 {INR} 0.9 - 1.3 [facility] PT Coag (PPP) [Time] 11.9 s 9.7 - 1 3.0 sec [facility] VITAMIN D 25 HYDROXYon 07-17 25-hydroxyvitamin D3 [Mass/Vol] 14.7 ng/mL Low 31.0 - 80.0 ng/mL [facility] .GFRon 05-14-2022 GFR >60 [facility] [place] Comment on above: Result Comment: GFR Population [...] Performed By: #### G FR, CMP #### [place] [address] GFR Non- >60 Normal [facility] ([place] Comment on above: Result Comment: GFR Population [...] Performed By: #### Susan KAUR, CMP #### [address] [address] CMPon 05-14-2022 Albumin Level 1.9 G/dL Low 3.2-4.8 [facility] ([place] Comment on above: Performed By: #### Susan KAUR, CMP #### [place] [id number] Albumin/Globulin [Mass ratio] 0.5 {ratio} Low 0.9-1.6 [facility] ([place] Comment on above: Performed By: #### Susan KAUR, CMP #### [place] [id number] ALP [Catalytic activity/Vol] 881 U/L High 38-126 [facility] ([place] Comment on above: Performed By: #### Susan KAUR, CMP #### [address] [address] ALT [Catalytic activity/Vol] 64 U/L High 12-55 [facility] ([place] Comment on above: Performed By: #### Susan KAUR, CMP #### [address] [address] AST [Catalytic activity/Vol] 182 U/L High 8-34 [facility] ([place] Comment on above: Performed By: #### Susan KAUR, CMP #### [address] [address] Bili Total 1.30 mg/dL High 0.20-1.20 [facility] ([place] Comment on above: Result Comment: Use of this assay is not recommended for patients undergoing treatment with eltrombopag due to the potential for falsely elevated results. Performed By: #### Susan KAUR, CMP #### [place] [id number] BUN/Creatinine Ratio 22.1 ratio High 10.0-22.0 [facility] [place] Comment on above: Performed By: #### G , CMP #### [address] [address] Calcium [Mass/Vol] 7.6 mg/dL Low 8.7-10.4 [facility] ([place] Comment on above: Performed By: #### Susan KAUR, CMP #### [address] [address] Chloride [Moles/Vol] 107 mmol/L Normal 98-110 [facility] [place] Comment on above: Performed By: #### Susan KAUR, CMP #### [address] [address] CO2 [Moles/Vol] 26 mmol/L Normal 22-32 [facility] ([place] Comment on above: Performed By: #### Susan KAUR, CMP #### [address] [address] Creatinine [Mass/Vol] 0.68 mg/dL Normal 0.60-1.40 [facility] ([place] Comment on above: Performed By: #### Susan KAUR, CMP #### [address] [address] Electrolyte Balance 0.0 mEq/L Low 4.0-15.0 [facility] ([place] Comment on above: Performed By: #### Susan KAUR, CMP #### [address] [address] Globulin 3.8 G/dL Normal 1.5-3.8 [facility] ([place] Comment on above: Performed By: #### Susan KAUR, CMP #### [address] [address] Glucose [Mass/Vol] 226 mg/dL High 70-110 [facility] ([place] Comment on above: Performed By: #### Susan KAUR, CMP #### [address] [address] Potassium [Moles/Vol] 4.1 mmol/L Normal 3.5-5.0 [facility] ([place] Comment on above: Performed By: #### Susan KAUR, CMP #### [address] [place], [place] [address] Sodium [Moles/Vol] 133 mmol/L Low 136-145 [facility] ([place] Comment on above: Performed By: #### G FR, CMP #### [address] [address] Total Protein 5.7 G/dL Normal 5.7-8.2 [facility] ([place] Comment on above: Result Comment: No te - New Reference Range in effect 20 Performed By: #### G FR, CMP #### [address] [address] Urea nitrogen [Mass/Vol] 15.0 mg/dL Normal 8.0-22.0 [facility] ([place] Comment on above: Performed By: #### G FR, CMP #### [address] [address] Glucose by meteron 2 Glucose [Mass/Vol] 190 mg/dL High 70 - 99 mg/dL [facility] Comment on above: Bedside glucose is a screening procedure. The bedside glucose strip is calibrated to deliver plasma glucose levels. Glucose meter values <45 mg/dl and >450 mg/dl must be confirmed with a plasma or whole blood glucose performed in the lab. Whole blood glucose results are 10-15% lower than plasma glucose results. Interpretation and review of laboratory results Abnormal [facility] Glucose [Mass/Vol] 130 mg/dL High 70 - 99 mg/dL [facility] Comment on above: Bedside glucose is a screening procedure. The bedside glucose strip is calibrated to deliver plasma glucose levels. Glucose meter values <45 mg/dl and >450 mg/dl must be confirmed with a plasma or whole blood glucose performed in the lab. Whole blood glucose results are 10-15% lower than plasma glucose results. Interpretation and review of laboratory results Abnormal [facility] Glucose [Mass/Vol] 87 mg/dL 70 - 99 mg/dL [facility] Comment on above: Bedside glucose is a screening procedure. The bedside glucose strip is calibrated to deliver plasma glucose levels. Glucose meter values <45 mg/dl and >450 mg/dl must be confirmed with a plasma or whole blood glucose performed in the lab. Whole blood glucose results are 10-15% lower than plasma glucose results. [facility] LABORATORYOrdered By: SYSTEM SYSTEM on 05-14-2022 [...] - 3.8 G/dL ADM SS Glucose [Mass/Vol] 226 mg/dL Invalid Interpretation Code 70 - 110 mg/dL ADM SS Potassium [Moles/Vol] 4.1 mmol/L Invalid Interpretation Code 3.5 - 5.0 mEq/L ADM SS Protein [Mass/Vol] 5.7 G/dL Invalid Interpretation Code 5.7 - 8.2 G/dL AH ADM SS Sodium [Moles/Vol] 133 mmol/L Invalid Interpretation Code 136 - 145 mEq/L AH ADM SS Urea nitrogen [Mass/Vol] 15.0 mg/dL Invalid Interpretation Code 8.0 - 22.0 mg/dL AH ADM SS Urea nitrogen/Creatinine [Mass ratio] 22.1 ratio Invalid Interpretation Code 10.0 - 22.0 ratio AH ADM SS .Auto Diffon 05-13-2022 Basophil, Absolute 0.0 10 3/mcL Normal 0.0-0.3 [facility] [place] Basophils/100 WBC (Bld) 0.2 % Normal 0.0-2.5 [facility]) Eosinophil, Absolute 0.1 10 3/mcL Normal 0.0-0.7 [facility]) Eosinophils/100 WBC (Bld) 2.2 % Normal 0.0-6.0 [facility]) Lymphocyte, Absolute 0.8 10 3/mcL Low 0.9-4.3 [facility]) Lymphocytes/100 WBC (Bld) 12.2 % Low 20.0-40.0 [facility]) Monocyte, Absolute 0.5 10 3/mcL Normal 0.1-1.4 [facility]) Monocytes/100 WBC (Bld) 7.5 % Normal 2.0-13.0 [facility]) Neutrophils/100 WBC (Bld) 77.9 % High 50.0-75.0 [facility]) .MDWon 05-13-2022 Monocyte Distribution Width Not performed Normal 0.00-20.00 [facility] ([place] Comment on above: Result Comment: MDW testing performed only on adult ER patients between the ages of 18-89 years. .NEUABSon 05-13-2022 Neutrophil, Absolute 5.3 10 3/mcL Normal 2.3-8.1 [facility] ([place] CBCon 05-13-2022 Erythrocyte distribution width (RBC) [Ratio] 12.9 % Normal 11.5-15.5 [facility] [place] Hematocrit (Bld) [Volume fraction] 36.3 % Low 40.0-52.0 [facility] [place] Hgb 12.8 G/dL Low 13.0-17.5 [facility] [place] MCH (RBC) [Entitic mass] 32.4 pg Normal 27.0-33.0 [facility]) MCHC 35.3 G/dL Normal 32.0-36.0 [facility] [place] MCV (RBC) [Entitic vol] 92.0 fL Normal 81.0-100.0 [facility]) Platelet 183 10 3/mcL Normal 150-450 [facility]) Platelet mean volume (Bld) [Entitic vol] 6.9 fL Normal 6.4-10.5 [facility]) RBC 3.95 10 6/mcL Low 4.50-6.00 [facility]) WBC 6.9 10 3/mcL Normal 4.5-10.8 [facility]) EKG 12 leadon 05-13-2022 [place] [facility] Test Date: 2022-05-12 Pat Name: JAY BARBER Department: ED Room: Gender: Male Field Cane Scaler: [id number] : 1995 Requested By: Ceon Order Number: [id number] Edmond RUEDA: Nitin Best MD Measurements Intervals Mentor Rate: 126 P: 76 SD: 143 QRS: 91 QRSD: 93 T: 52 QT: 318 QTc: 461 Interpretive Statements Sinus tachycardia Borderline right axis deviation Possible LVH Artifact ICD: I49.9 Cardiac Arrhythmia, unspecified Electronically Signed On 05-13-2022 9:53:55 EDT by Nitin Best MD PDF RESULT Nitin Best MD - 05/13/2022 [place] [facility] Test Date: 2022-05-12 Pat Name: JAY BARBER Department: ED Room: Gender: Male Field Cane Scaler: [id number] : 1995 [facility]ed By: [facility] [place] Order Number: [id number] Reading MD: Nitin Best MD Measurements Intervals Mentor Rate: 126 P: 76 SD: 143 QRS: 91 QRSD: 93 T: 52 QT: 318 QTc: 461 Interpretive Statements Sinus tachycardia Borderline right axis deviation Possible LVH Artifact ICD: I49.9 Cardiac Arrhythmia, unspecified Electronically Signed On 05-13-2022 9:53:55 EDT by Nitin Best MD [facility] EKG 12 leadOrdered By: Nitin Best on 05-13-2022 [facility] Work Phone: Glucose by meteron 2 Glucose [Mass/Vol] 166 mg/dL High 70 - 99 mg/dL [facility] Comment on above: Bedside glucose is a screening procedure. The bedside glucose strip is calibrated to deliver plasma glucose levels. Glucose meter values <45 mg/dl and >450 mg/dl must be confirmed with a plasma or whole blood glucose performed in the lab. Whole blood glucose results are 10-15% lower than plasma glucose results. Interpretation and review of laboratory results Abnormal [facility] Glucose [Mass/Vol] 209 mg/dL High 70 - 99 mg/dL [facility] Comment on above: Bedside glucose is a screening procedure. The bedside glucose strip is calibrated to deliver plasma glucose levels. Glucose meter values <45 mg/dl and >450 mg/dl must be confirmed with a plasma or whole blood glucose performed in the lab. Whole blood glucose results are 10-15% lower than plasma glucose results. Interpretation and review of laboratory results Abnormal [facility] Glucose [Mass/Vol] 177 mg/dL High 70 - 99 mg/dL [facility] Comment on above: Bedside glucose is a screening procedure. The bedside glucose strip is calibrated to deliver plasma glucose levels. Glucose meter values <45 mg/dl and >450 mg/dl must be confirmed with a plasma or whole blood glucose performed in the lab. Whole blood glucose results are 10-15% lower than plasma glucose results. Interpretation and review of laboratory results Abnormal [facility] Glucose [Mass/Vol] 79 mg/dL 70 - 99 mg/dL [facility] Comment on above: Bedside glucose is a screening procedure. The bedside glucose strip is calibrated to deliver plasma glucose levels. Glucose meter values <45 mg/dl and >450 mg/dl must be confirmed with a plasma or whole blood glucose performed in the lab. Whole blood glucose results are 10-15% lower than plasma glucose results. [facility] Glucose [Mass/Vol] 104 mg/dL High 70 - 99 mg/dL [facility] Comment on above: Bedside glucose is a screening procedure. The bedside glucose strip is calibrated to deliver plasma glucose levels. Glucose meter values <45 mg/dl and >450 mg/dl must be confirmed with a plasma or whole blood glucose performed in the lab. Whole blood glucose results are 10-15% lower than plasma glucose results. Interpretation and review of laboratory results Abnormal [facility] LABORATORYOrdered By: Nikkie Benítez on 05-13-2022 Appearance (U) Clear (05/13/22 8:53 AM) Invalid Interpretation Code Clear AH Auto Urine SS Bilirubin Ql (U) Negative (05/13/22 8:53 AM) Invalid Interpretation Code Neg-Trace AH Auto Urine SS Color (U) Straw (05/13/22 8:53 AM) Invalid Interpretation Code AH Auto Urine SS Glucose Test strip (U) [Mass/Vol] Negative Invalid Interpretation Code Negativemg/d L AH Auto Urine SS Hemoglobin Auto test strip (U) [Mass/Vol] Trace (05/13/22 8:53 AM) Invalid Interpretation Code Neg-Trace AH Auto Urine SS Ketones Ql (U) Trace mg/dL Invalid Interpretation Code Neg-Tracemg/ dL AH Auto Urine SS UA Leuk Est Negative (05/13/22 8:53 AM) Invalid Interpretation Code Negative Auto Urine SS UA Nitrite Negative (05/13/22 8:53 AM) Invalid Interpretation Code Negative AH Auto Urine SS UA pH 6.0 (05/13/22 8:53 AM) Invalid Interpretation Code 5.0 - 8.0 AH Auto Urine SS UA Protein 30 mg/dL Invalid Interpretation Code Negativemg/d L AH Auto Urine SS UA Spec Grav 1.015 (05/13/22 8:53 AM) Invalid Interpretation Code 1.006-1.029 AH Auto Urine SS UA Specimen Type Clean Catch (05/13/22 8:53 AM) Invalid Interpretation Code AH Auto Urine SS UA Urobilinogen 0.2 E.U./dL Invalid Interpretation Code 0.2-1.0E.U./ dL AH Auto Urine SS LABORATORYOrdered By: SYSTEM SYSTEM on 05-13-2022 Basophils (Bld) [#/Vol] 0.0 103/mcL Invalid Interpretation Code 0.0 - 0.3 10^3/mcL AH Workflow SS Basophils/100 WBC (Bld) 0.2 % Invalid Interpretation Code 0.0 - 2.5 % Workflow SS Eosinophil, Absolute 0.1 103/mcL Invalid Interpretation Code 0.0 - 0.7 10^3/mcL AH Workflow SS Eosinophils/100 WBC (Bld) 2.2 % Invalid Interpretation Code 0.0 - 6.0 % AH Workflow SS Erythrocyte distribution width (RBC) [Ratio] 12.9 % Invalid Interpretation Code 11.5 - 15.5 % AH Workflow SS Hematocrit (Bld) [Volume fraction] 36.3 % Invalid Interpretation Code 40.0 - 52.0 % AH Workflow SS Hgb 12.8 G/dL Invalid Interpretation Code 13.0 - 17.5 G/dL AH Workflow SS Lymphocyte, Absolute 0.8 103/mcL Invalid Interpretation Code 0.9 - 4.3 10^3/mcL Workflow SS Lymphocytes/100 WBC (Bld) 12.2 % Invalid Interpretation Code 20.0 - 40.0 % Workflow SS MCH (RBC) [Entitic mass] 32.4 pg Invalid Interpretation Code 27.0 - 33.0 pg AH Workflow SS MCHC 35.3 G/dL Invalid Interpretation Code 32.0 - 36.0 G/dL AH Workflow SS MCV (RBC) [Entitic vol] 92.0 [...] Invalid Interpretation Code 50.0 - 75.0 % AH Workflow SS Platelet 183 103/mcL Invalid Interpretation Code 150 - 450 10^3/mcL AH Workflow SS Platelet mean volume (Bld) [Entitic vol] 6.9 fL Invalid Interpretation Code 6.4 - 10.5 fL AH Workflow SS RBC 3.95 106/mcL Invalid Interpretation Code 4.50 - 6.00 10^6/mcL Workflow SS WBC 6.9 103/mcL Invalid Interpretation Code 4.5 - 10.8 10^3/mcL Workflow SS UAon 05-13-2022 Color (U) Straw Normal [facility] ([place] Comment on above: Performed By: #### U A #### [place] [address] Glucose (U) [Mass/Vol] Negative Normal Negative [facility] ([place] Comment on above: Performed By: #### U A #### [place] [id number] Ketones Ql (U) Trace Normal Neg-Trace [facility] ([place] Comment on above: Performed By: #### U A #### [place] [address] UA Appear Clear Normal Clear [facility] ([place] Comment on above: Performed By: #### U A #### [address] [address] UA Blood Trace Normal Neg-Trace [facility] ([place] Comment on above: Performed By: #### U A #### [address] [address] UA Leuk Est Negative Normal Negative [facility] [place] Comment on above: Performed By: #### U A #### [address] [address] UA Nitrite Negative Normal Negative [facility] [place] Comment on above: Performed By: #### U A #### [place] [id number] UA pH 6.0 Normal 5.0 - 8.0 [facility] [place] Comment on above: Performed By: #### U A #### [place] [id number] UA Protein 30 mg/dL Normal Negative [facility] [place] Comment on above: Performed By: #### U A #### [address] [address] UA Spec Grav 1.015 Normal 1.006-1.029 [facility] [place] Comment on above: Performed By: #### U A #### [address] [address] UA Specimen Type Clean Catch Normal [facility] [place] Comment on above: Performed By: #### U A #### [address] [address] UA Urobilinogen 0.2 E.U./dL Normal 0.2-1.0 [facility] [place] Comment on above: Performed By: #### U A #### [address] [address] Urobilinogen (U) [Mass/Vol] Negative Normal Neg-Trace [facility] [place] Comment on above: Performed By: #### U A #### [address] [address] .GFRon 05-12-2022 GFR >60 Normal [facility] [place] Comment on above: Result Comment: GFR Population [...] meters Performed By: #### G FR, CMP ####[address] [address] GFR Non- 55 ml/min/1.73sqm Normal [facility] [place] Comment on above: Result Comment: GFR Population [...] meters Performed By: #### Susan KAUR, CMP ####[address] [address] CMPon 05-12-2022 Albumin Level 2.5 G/dL Low 3.2-4.8 [facility] ([place] Comment on above: Performed By: #### Susan KAUR, CMP #### [address] [address] Albumin/Globulin [Mass ratio] 0.5 {ratio} Low 0.9-1.6 [facility] [place] Comment on above: Performed By: #### Susan KAUR, CMP #### [address] [address] ALP [Catalytic activity/Vol] 757 U/L High 38-126 [facility] [place] Comment on above: Performed By: #### Susan KAUR, CMP #### [address] [address] ALT [Catalytic activity/Vol] 31 U/L Normal 12-55 [facility] [place] Comment on above: Performed By: #### Susan KAUR, CMP #### [address] [address] AST [Catalytic activity/Vol] 43 U/L High 8-34 [facility] ([place]) Comment on above: Performed By: #### Susan KAUR, CMP #### [address] [address] Bili Total 0.70 mg/dL Normal 0.20-1.20 [facility] ([place]) Comment on above: Result Comment: Use of this assay is not recommended for patients undergoing treatment with eltrombopag due to the potential for falsely elevated results. Performed By: #### G FR, CMP #### [place] [id number] BUN/Creatinine Ratio 33.6 ratio High 10.0-22.0 [facility] [place] Comment on above: Performed By: #### G FR, CMP #### [address] [address] Calcium [Mass/Vol] 7.8 mg/dL Low 8.7-10.4 [facility] ([place] Comment on above: Performed By: #### G FR, CMP #### [address] [address] Chloride [Moles/Vol] 96 mmol/L Low 98-110 [facility] [place] Comment on above: Performed By: #### G FR, CMP #### [place] [id number] CO2 [Moles/Vol] 25 mmol/L Normal 22-32 [facility] ([place] Comment on above: Performed By: #### G FR, CMP #### [place] [id number] Creatinine [Mass/Vol] 1.52 mg/dL High 0.60-1.40 [facility] ([place] Comment on above: Performed By: #### G FR, CMP #### [place] [id number] Electrolyte Balance 9.0 mEq/L Normal 4.0-15.0 [facility] ([place] Comment on above: Performed By: #### G FR, CMP #### [address] [address] Globulin 4.7 G/dL High 1.5-3.8 [facility] [place] Comment on above: Performed By: #### G FR, CMP #### [place] [id number] Glucose [Mass/Vol] 259 mg/dL High 70-110 [facility] ([place] Comment on above: Performed By: #### G FR, CMP #### [address] [place], [place] [address] Potassium [Moles/Vol] 4.8 mmol/L Normal 3.5-5.0 [facility] [place] Comment on above: Performed By: #### G , CMP #### [address] [address] Sodium [Moles/Vol] 130 mmol/L Low 136-145 [facility] ([place] Comment on above: Performed By: #### G , CMP #### [address] [address] Total Protein 7.2 G/dL Normal 5.7-8.2 [facility] [place] Comment on above: Result Comment: No te - New Reference Range in effect 20 Performed By: #### G , CMP #### [address] [address] Urea nitrogen [Mass/Vol] 51.0 mg/dL High 8.0-22.0 [facility] ([place] Comment on above: Performed By: #### Susan KAUR, CMP #### [address] [address] Complete Blood Counton 05-12 Differential Complete Manual [facility] Erythrocyte distribution width (RBC) [Ratio] 13.3 % 0 - 14.4 % [facility] Hematocrit (Bld) [Volume fraction] 46.1 % 41 - 50 % [facility] Hemoglobin (Bld) [Mass/Vol] 16.2 g/dL 13.5 - 16.5 g/dl [facility] Immature granulocytes/100 WBC (Bld) 0.5 % [facility] Comment on above: Immature Granulocyte Percent includes promyelocytes, myelocytes, and metamyelocytes. IG% > 1.0 indicates a left shift is present. With automated differentials, bands are included in the neutrophil count and not in the Immature Granulocyte Percent. MCH (RBC) [Entitic mass] 31.6 pg 26 - 34 pg [facility] MCHC 35.1 % 31 - 37 % [facility] MCV (RBC) [Entitic vol] 90.0 fL 80 - 100 fl [facility] Nucleated RBC/100 WBC (Bld) [Ratio] 0 % -1 - 0 % [facility] Platelet mean volume (Bld) [Entitic vol] 9.6 fL [facility] Comment on above: MPV is platelet range and age dependent Platelets (Bld) [#/Vol] 303 10*3/uL [facility] RBC (Bld) [#/Vol] 5.12 10*6/uL [facility] WBC (Bld) [#/Vol] 20.8 10*3/uL High [facility] Comprehensive metabolic pane [place] 05-12-2022 Albumin [Mass/Vol] 3.0 g/dL Low 3.5 - 5 g/dL [place] ALP [Catalytic activity/Vol] 889 U/L High 40 - 129 U/L [facility] Comment on above: Hemolysis detected. Results may be falsely decreased. Interpret results with caution. ALT [Catalytic activity/Vol] 38 U/L 0 - 46 U/L [facility] Comment on above: Hemolysis detected. Results may be impacted variably as either falsely elevated or falsely decreased. Interpret results with caution. AST [Catalytic activity/Vol] 77 U/L High 0 - 37 U/L [facility] Comment on above: Hemolysis detected. Results may be falsely elevated. Interpret results with caution. Bilirubin [Mass/Vol] 1.0 mg/dL [place] Calcium [Mass/Vol] 8.1 mg/dL 7.6 - 11 mg/dL [facility] Chloride [Moles/Vol] 88 mmol/L Low 96 - 10 8 mmol/L [facility] CO2 [Moles/Vol] 14.2 mmol/L Low 22 - 29 mmol/L [facility] Creatinine [Mass/Vol] 1.78 mg/dL High 0.7 - 1.2 mg/dL [facility] Glucose [Mass/Vol] 324 mg/dL High 70 - 99 mg/dL [facility] Comment on above: Criteria for Diagnos [...] mmol/L Critically high 3.3 - 5.1 mmol/L [facility] Comment on above: Hemolysis detected. Results may be falsely elevated. Interpret results with caution. Critical value called To and Read back by: [id number] Protein [Mass/Vol] 8.3 g/dL 5.9 - 8.4 g/dL [facility] Sodium [Moles/Vol] 131 mmol/L Low 133 - 145 mmol/L [facility] Urea nitrogen [Mass/Vol] 45 mg/dL High 4 - 19 mg/dL [facility] Glucose by meteron 2 Glucose [Mass/Vol] 369 mg/dL High 70 - 99 mg/dL [facility] Comment on above: Bedside glucose is a screening procedure. The bedside glucose strip is calibrated to deliver plasma glucose levels. Glucose meter values <45 mg/dl and >450 mg/dl must be confirmed with a plasma or whole blood glucose performed in the lab. Whole blood glucose results are 10-15% lower than plasma glucose results. Glucose [Mass/Vol] 334 mg/dL High 70 - 99 mg/dL [facility] Comment on above: Bedside glucose is a screening procedure. The bedside glucose strip is calibrated to deliver plasma glucose levels. Glucose meter values <45 mg/dl and >450 mg/dl must be confirmed with a plasma or whole blood glucose performed in the lab. Whole blood glucose results are 10-15% lower than plasma glucose results. Glucose [Mass/Vol] 427 mg/dL High 70 - 99 mg/dL [facility] Comment on above: Bedside glucose is a screening procedure. The bedside glucose strip is calibrated to deliver plasma glucose levels. Glucose meter values <45 mg/dl and >450 mg/dl must be confirmed with a plasma or whole blood glucose performed in the lab. Whole blood glucose results are 10-15% lower than plasma glucose results. Interpretation and review of laboratory results Abnormal [facility] LABORATORYOrdered By: Lola Bains on 05-12-2022 Appearance (U) Clear (05/12/22 9:09 PM) Invalid Interpretation Code Clear AH Auto Urine SS Bilirubin Ql (U) Negative (05/12/22 9:09 PM) Invalid Interpretation Code Neg-Trace AH Auto Urine SS Color (U) Yellow (05/12/22 9:09 PM) Invalid Interpretation Code AH Auto Urine SS Glucose Test strip (U) [Mass/Vol] 250 mg/dL Invalid Interpretation Code Negativemg/d L AH Auto Urine SS Hemoglobin Auto test strip (U) [Mass/Vol] Trace (05/12/22 9:09 PM) Invalid Interpretation Code Neg-Trace AH Auto Urine SS Ketones Ql (U) 15 mg/dL Invalid Interpretation Code Neg-Tracemg/ dL AH Auto Urine SS UA Leuk Est Negative (05/12/22 9:09 PM) Invalid Interpretation Code Negative AH Auto Urine SS UA Nitrite Negative (05/12/22 9:09 PM) Invalid Interpretation Code Negative AH Auto Urine SS UA pH 5.0 (05/12/22 9:09 PM) Invalid Interpretation Code 5.0 - 8.0 AH Auto Urine SS UA Protein 30 mg/dL Invalid Interpretation Code Negativemg/d L AH Auto Urine SS UA Spec Grav 1.015 (05/12/22 9:09 PM) Invalid Interpretation Code 1.006-1.029 AH Auto Urine SS UA Specimen Type Clean Catch (05/12/22 9:09 PM) Invalid Interpretation Code AH Auto Urine SS UA Urobilinogen 0.2 E.U./dL Invalid Interpretation Code 0.2-1.0E.U./ dL AH Auto Urine SS LABORATORYOrdered By: SYSTEM SYSTEM on 05-12-2022 Albumin BCP dye [Mass/Vol] 2.5 G/dL Invalid Interpretation Code 3.2 - 4.8 G/dL AH ADM SS Albumin/Globulin [Mass ratio] 0.5 {ratio} Invalid Interpretation Code 0.9 - 1.6 ratio AH ADM SS ALP [Catalytic activity/Vol] 757 U/L Invalid Interpretation Code 38 - 126 U/L AH ADM SS ALT No additional P-5'-P [Catalytic activity/Vol] 31 U/L Invalid Interpretation Code 12 - 55 U/L AH ADM SS AST [Catalytic activity/Vol] 43 U/L Invalid Interpretation Code 8 - 34 U/L AH ADM SS Bilirubin [Mass/Vol] 0.70 mg/dL Invalid Interpretation Code 0.20 - 1.20 mg/dL AH ADM SS Calcium [Mass/Vol] 7.8 mg/dL Invalid Interpretation Code 8.7 - 10.4 mg/dL ADM SS Chloride [Moles/Vol] 96 mmol/L Invalid Interpretation Code 98 - 110 mEq/L ADM SS CO2 [Moles/Vol] 25 mmol/L Invalid Interpretation Code 22 - 32 mEq/L AH ADM SS Creatinine [Mass/Vol] 1.52 mg/dL Invalid Interpretation Code 0.60 - 1.40 mg/dL ADM SS Electrolyte Balance 9.0 mEq/L Invalid Interpretation Code 4.0 - 15.0 mEq/L ADM SS GFR/1.73 sq M.predicted among blacks MDRD (S/P/Bld) [Vol rate/Area] ml/min/1.73sqm Invalid Interpretation Code AH Chemistry S GFR/1.73 sq M.predicted among non-blacks [...] Invalid Interpretation Code 10.0 - 22.0 ratio ADM SS Lipaseon 05-12-2022 Lipase [Catalytic activity/Vol] 9 U/L Low 13 - 95 U/L [facility] Manual Differentialon 2021 % Metamyelocytes 0 % 0 - 0 % [facility] % Myelocytes 0 % 0 - 0 % [facility] % Promyelocytes 0 % 0 - 0 % [facility] Absolute Neutrophil No. 20.2 High [facility] Anisocytosis Slight [facility] Band Neutrophil 11 % 5 - 11 % [facility] Lymphocytes 3 % Low 24 - 44 % [facility] Poikilocytosis Slight [facility] Segmented Neutrophils 86 % High 35 - 66 % [facility] No Panel Informationon 05-12 Interpretation and review of laboratory results Abnormal [facility] Interpretation and review of laboratory results Abnormal [facility] Release to patient->Automatic [facility] LAB [facility] Interpretation and review of laboratory results Abnormal [facility] Release to patient->Automatic [facility] LAB [facility] Potassium,WBon 05-12-2022 Interpretation and review of laboratory results Abnormal [facility] Potassium, WB 6.0 Critically high [facility] Release to patient->Automatic [facility] LAB [facility] Respiratory Panel Film Array on 05-12-2022 Respiratory pathogens DNA and RNA panel PABLO+non-probe (Nph) See Below [facility] Comment on above: Source: NPH Collecte d: 05/12/22 09:55 Site: Nose Received : 05/12/22 11:42 Respiratory Panel Film Array FINAL 05/12/22 12:46 - NEGATIVE: No SARS-CoV-2 detected. NEGATIVE: No respiratory pathogens were detected. - The Film Array Respiratory Panel detects DNA or RNA for the following organisms: Adenovirus [id number] Coronavirus 229E Coronavirus HKU1 Coronavirus NL63 Coronavirus [...] history, and epidemiological information. - Method: The [employer] Respiratory Panel 2.1 (RP2.1) is a multiplexed nucleic acid test intended for the simultaneous qualitative detection and differentiation of nucleic acids from multiple viral and bacterial respiratory organisms, including nucleic acid from Severe Acute Respiratory Syndrome Coronavirus 2 (SARS-CoV-2). This test is FDA [place] authorized. [facility] 05-12-2022 Color (U) Yellow Normal [facility] ([place]) Comment on above: Performed By: #### U A #### [place] [address] Glucose (U) [Mass/Vol] 250 mg/dL Abnormal Negative [facility] ([place]) Comment on above: Performed By: #### U A #### [place] [address] Ketones Ql (U) 15 mg/dL Abnormal Neg-Trace [facility] ([place]) Comment on above: Performed By: #### U A #### [place] [address] UA Appear Clear Normal Clear [facility] [place] Comment on above: Performed By: #### U A #### [place] [address] UA Blood Trace Normal Neg-Trace [facility] ([place]) Comment on above: Performed By: #### U A #### [place] [address] UA Leuk Est Negative Normal Negative [facility] [place] Comment on above: Performed By: #### U A #### [place] [id number] UA Nitrite Negative Normal Negative [facility] [place] Comment on above: Performed By: #### U A #### [place] [id number] UA pH 5.0 Normal 5.0 - 8.0 [facility] ([place]) Comment on above: Performed By: #### U A #### [place] [id number] UA Protein 30 mg/dL Normal Negative [facility] ([place]) Comment on above: Performed By: #### U A #### [place] [id number] UA Spec Grav 1.015 Normal 1.006-1.029 [facility] ([place] Comment on above: Performed By: #### U A #### [facility] [address] [place] [id number] UA Specimen Type Clean Catch Normal [facility] ([place] Comment on above: Performed By: #### U A #### [facility] [address] [place] [id number] UA Urobilinogen 0.2 E.U./dL Normal 0.2-1.0 [facility] ([place] Comment on above: Performed By: #### U A #### [facility] [address] [place] [id number] Urobilinogen (U) [Mass/Vol] Negative Normal Neg-Trace [facility] ([place] Comment on above: Performed By: #### U A #### [address] [id number] XR Abdomen 2 Viewson IMPRESSION: There ar e cystic fibrosis changes [...] has been created using voice recognition software [facility] CLINICAL HISTORY: abdominal pain, vomiting, concern for JOSE COMPARISON: 06/15/2019 TECHNIQUE: ABDOMEN 2 VIEWS [facility] Fredo Brady MD - 05/12/2022 CLINICAL HISTORY: abdominal pain, vomiting, concern for [...] has been created using voice recognition software [facility] Study observation (narrative) [facility] XR Abdomen 2 ViewsOrdered By : Fredo Brady on 05-12-2022 [facility] Work Phone: XR CHEST 1 VIEWon 05-12-2022 XR CHEST 1 VIEW ORIGINAL Images acquired, not reported on this accession number. Normal [facility] ([place]) XR Chest Single viewon 05-12 IMPRESSION: There [...] has been created using voice recognition software [facility] CLINICAL HISTORY: CF pulmonary exacerbation COMPARISON: 06/15/2019, 03/19/2021, 12/06/2021, 01/14/2022 TECHNIQUE: CHEST AP ONLY [facility] Fredo Brady MD - 05/12/2022 CLINICAL HISTORY: CF pulmonary exacerbation COMPARISON: 06/15/2019, [...] has been created using voice recognition software [facility] Radiology Study observation (narrative) [facility] Vital Signs Date Time Vital Sign Value Performing Clinician Facility 02-14-2025 14:02-0400 Body height 156.5 cm Stephie Ramirez APRN.CNP Work Phone: [facility] 02-14-2025 14:02-0400 Body mass index (BMI) [Ratio] 16.21 kg/m2 Stephie Ramirez APRN.CNP Work Phone: [facility] 02-14-2025 14:02-0400 Body weight 39.69 kg Stephie Ramirez APRN.[employer] Work Phone: [facility] 02-14-2025 14:02-0400 Diastolic blood pressure 83 mm[Hg] Stephie Ramirez ACCOUNTING REPRESENTATIVE.[employer]ER Work Phone: [facility] 02-14-2025 14:02-0400 Heart rate 85 /min Stephie Ramirez ACCOUNTING REPRESENTATIVE.[employer]ER Work Phone: [facility] 02-14-2025 14:02-0400 Systolic blood pressure 131 mm[Hg] Stephie Ramirez ACCOUNTING REPRESENTATIVE.[employer] Work Phone: [facility] 02-09-2025 10:22-0400 Body mass index (BMI) [Ratio] 15.73 kg/m2 Sally Buccecily ACCOUNTING REPRESENTATIVE.[employer]LE TENDER Work Phone: [facility] 02-09-2025 10:22-0400 Body temperature 98.2 [degF] Sally Bucur ACCOUNTING REPRESENTATIVE.[employer] TENDER Work Phone: [facility] 02-09-2025 10:22-0400 Body weight 38.5 kg Sally Bucur ACCOUNTING REPRESENTATIVE.[employer]LE TENDER Work Phone: [facility] 02-09-2025 10:22-0400 Diastolic blood pressure 61 mm[Hg] Sally Bucur ACCOUNTING REPRESENTATIVE.[employer]ADLE TENDER Work Phone: [facility] 02-09-2025 10:22-0400 Heart rate 97 /min Sally Bucur ACCOUNTING REPRESENTATIVE.[employer]LE TENDER Work Phone: [facility] 02-09-2025 10:22-0400 Respiratory rate 16 /min Sally Bucur ACCOUNTING REPRESENTATIVE.[employer]LE TENDER Work Phone: [facility] 02-09-2025 10:22-0400 SaO2% (BldA) [Mass fraction] 97 % Sally Bucur ACCOUNTING REPRESENTATIVE.[employer]ADLE TENDER Work Phone: [facility] 02-09-2025 10:22-0400 Systolic blood pressure 103 mm[Hg] Sally Bucur ACCOUNTING REPRESENTATIVE.BU[employer]ADLE TENDER Work Phone: [facility] 02-07-2025 10:36-0400 Body mass index (BMI) [Ratio] 15.89 kg/m2 Farrukh Gomes MD Work Phone: [facility] 02-07-2025 10:36-0400 Body temperature 100.2 [degF] Farrukh Gomes MD Work Phone: [facility] 02-07-2025 10:36-0400 Body weight 38.9 kg Farrukh Gomes MD Work Phone: [facility] 02-07-2025 10:36-0400 Diastolic blood pressure 82 mm[Hg] Farrukh Gomes MD Work Phone: [facility] 02-07-2025 10:36-0400 Heart rate 98 /min Farrukh Gomes MD Work Phone: [facility] 02-07-2025 10:36-0400 Respiratory rate 16 /min Farrukh Gomes MD Work Phone: [facility] 02-07-2025 10:36-0400 SaO2% (BldA) [Mass fraction] 95 % Farrukh Gomes MD Work Phone: [facility] 02-07-2025 10:36-0400 Systolic blood pressure 128 mm[Hg] Farrukh Gomes MD Work Phone: [facility] 01-05-2025 13:16-0500 Body height 156.5 cm Jean Pierre Kilgore MD Work Phone: [facility] 01-05-2025 13:16-0500 Body mass index (BMI) [Ratio] 16.63 kg/m2 Jean Pierre Kilgore MD Work Phone: [facility] 01-05-2025 13:16-0500 Body temperature 99 [degF] Jean Pierre Kilgore MD Work Phone: [facility] 01-05-2025 13:16-0500 Body weight 40.7 kg Jean Pierre Kilgore MD Work Phone: [facility] 01-05-2025 13:16-0500 Diastolic blood pressure 100 mm[Hg] Jean Pierre Kilgore MD Work Phone: [facility] 01-05-2025 13:16-0500 Heart rate 80 /min Jean Pierre Kilgore MD Work Phone: [facility] 01-05-2025 13:16-0500 Respiratory rate 18 /min Jean Pierre Kilgore MD Work Phone: [facility] 01-05-2025 13:16-0500 SaO2% (BldA) [Mass fraction] 95 % Jean Pierre Kilgore MD Work Phone: [facility] 01-05-2025 13:16-0500 Systolic blood pressure 160 mm[Hg] Jean Pierre Kilgore MD Work Phone: [facility] 10-12-2024 13:42-0500 Body height 157.5 cm Stephie Ramirez APRN.[employer]LE TENDER Work Phone: [facility] 10-12-2024 13:42-0500 Body mass index (BMI) [Ratio] 16.04 kg/m2 Stephie Ramirez APRN.[employer]LE TENDER Work Phone: [facility] 10-12-2024 13:42-0500 Body weight 39.78 kg Stephie Ramirez APRN.[employer]LE TENDER Work Phone: [facility] 10-12-2024 13:42-0500 Diastolic blood pressure 80 mm[Hg] Stephie Ramirez APRN.[employer]ADLE TENDER Work Phone: [facility] 10-12-2024 13:42-0500 Systolic blood pressure 136 mm[Hg] Stephie Ramirez APRN.[employer]ADLE TENDER Work Phone: [facility] 10-06-2024 12:08-0500 Body mass index (BMI) [Ratio] 15.28 kg/m2 Sally Schneider ACCOUNTING REPRESENTATIVE.[employer]ENDER Work Phone: [facility] 10-06-2024 12:08-0500 Body weight 37.9 kg Sally Schneider ACCOUNTING REPRESENTATIVE.[employer] TENDER Work Phone: [facility] 10-06-2024 12:08-0500 Diastolic blood pressure 86 mm[Hg] Sally Bucur ACCOUNTING REPRESENTATIVE.[employer]LE TENDER Work Phone: [facility] 10-06-2024 12:08-0500 Heart rate 79 /min Sally Bucur ACCOUNTING REPRESENTATIVE.BU[employer]LE TENDER Work Phone: [facility] 10-06-2024 12:08-0500 Respiratory rate 17 /min Sally Bucur ACCOUNTING REPRESENTATIVE.[employer]LE TENDER Work Phone: [facility] 10-06-2024 12:08-0500 SaO2% (BldA) [Mass fraction] 94 % Sally Bucur ACCOUNTING REPRESENTATIVE.[employer]ADLE TENDER Work Phone: [facility] 10-06-2024 12:08-0500 Systolic blood pressure 128 mm[Hg] Sally Bucur ACCOUNTING REPRESENTATIVE.[employer]ADLE TENDER Work Phone: [facility] 09-09-2024 12:05-0400 Body mass index (BMI) [Ratio] 15.44 kg/m2 Sally Bucur ACCOUNTING REPRESENTATIVE.[employer]LE TENDER Work Phone: [facility] 09-09-2024 12:05-0400 Body temperature 98.29 [degF] Sally Bucur ACCOUNTING REPRESENTATIVE.[employer]ADLE TENDER Work Phone: [facility] 09-09-2024 12:05-0400 Body weight 38.3 kg Sally Bucur ACCOUNTING REPRESENTATIVE.BU[employer]ADLE TENDER Work Phone: [facility] 09-09-2024 12:05-0400 Diastolic blood pressure 80 mm[Hg] Sally Bucur ACCOUNTING REPRESENTATIVE.BU[employer]ADLE TENDER Work Phone: [facility] 09-09-2024 12:05-0400 Heart rate 99 /min Sally Bucur ACCOUNTING REPRESENTATIVE.BU[employer]ADLE TENDER Work Phone: [facility] 09-09-2024 12:05-0400 Respiratory rate 18 /min Sally Bucur ACCOUNTING REPRESENTATIVE.BU[employer]ADLE TENDER Work Phone: [facility] 09-09-2024 12:05-0400 SaO2% (BldA) [Mass fraction] 93 % Sally Schneider ACCOUNTING REPRESENTATIVE.BU[employer] LADLE TENDER Work Phone: [facility] 09-09-2024 12:05-0400 Systolic blood pressure 130 mm[Hg] Sally Schneider APRN.BU[employer]ADLE TENDER Work Phone: [facility] 08-18-2024 13:25-0400 Body height 157.5 cm Jean Pierre Kilgore MD Work Phone: [facility] 08-18-2024 13:25-0400 Body mass index (BMI) [Ratio] 15.6 kg/m2 Jean Pierre Kilgore MD Work Phone: [facility] 08-18-2024 13:25-0400 Body temperature 98.01 [degF] Jean Pierre Kilgore MD Work Phone: [facility] 08-18-2024 13:25-0400 Body weight 38.7 kg Jean Pierre Kilgore MD Work Phone: [facility] 08-18-2024 13:25-0400 Diastolic blood pressure 88 mm[Hg] Jean Pierre Kilgore MD Work Phone: [facility] 08-18-2024 13:25-0400 Heart rate 90 /min Jean Pierre Kilgore MD Work Phone: [facility] 08-18-2024 13:25-0400 Respiratory rate 16 /min Jean Pierre Kilgore MD Work Phone: [facility] 08-18-2024 13:25-0400 SaO2% (BldA) [Mass fraction] 98 % Jean Pierre Kilgore MD Work Phone: [facility] 08-18-2024 13:25-0400 Systolic blood pressure 142 mm[Hg] Jean Pierre Kilgore MD Work Phone: [facility] 07-06-2024 13:37-0400 Body height 157.5 cm Stephie Ramirez APRN.[employer]ADLE TENDER Work Phone: [facility] 07-06-2024 13:37-0400 Body mass index (BMI) [Ratio] 17.1 kg/m2 Stephie Darrian BRO.BUGGY LADLE TENDER Work Phone: [facility] 07-06-2024 13:37-0400 Body weight 42.41 kg Stephie Sortobruce RIZON.BUGGY LADLE TENDER Work Phone: [facility] 07-06-2024 13:37-0400 Diastolic blood pressure 92 mm[Hg] Stephie Lundyartney ACCOUNTING REPRESENTATIVE.[employer]ADLE TENDER Work Phone: [facility] 07-06-2024 13:37-0400 Systolic blood pressure 156 mm[Hg] Stephie Lundyartney ACCOUNTING REPRESENTATIVE.[employer]ADLE TENDER Work Phone: [facility] 05-10-2024 11:23-0400 Body height 157.[address] Work Phone: [facility] 05-10-2024 11:23-0400 Body mass index (BMI) [Ratio] 17.38 kg/m2 Fernando Leatha RD Work Phone: [facility] 05-10-2024 11:23-0400 Body weight 43.[address] Work Phone: [facility] 05-05-2024 14:22-0400 Body mass index (BMI) [Ratio] 17.42 kg/m2 Jean Pierre Kilgore MD Work Phone: [facility] 05-05-2024 14:22-0400 Body weight 43.2 kg Jean Pierre Kilgore MD Work Phone: [facility] 05-05-2024 14:22-0400 Diastolic blood pressure 98 mm[Hg] Jean Pierre Kilgore MD Work Phone: [facility] 05-05-2024 14:22-0400 Heart rate 89 /min Jean Pierre Kilgore MD Work Phone: [facility] 05-05-2024 14:22-0400 Respiratory rate 18 /min Jean Pierre Kilgore MD Work Phone: [facility] 05-05-2024 14:22-0400 SaO2% (BldA) [Mass fraction] 96 % Jean Pierre Kilgore MD Work Phone: [facility] 05-05-2024 14:22-0400 Systolic blood pressure 153 mm[Hg] Jean Pierre Kilgore MD Work Phone: [facility] 04-07-2024 13:[id number] Body height 157.5 cm Tia Lindo MD Work Phone: [facility] 04-07-2024 13:29-0400 Body mass index (BMI) [Ratio] 17.34 kg/m2 Tia Lindo MD Work Phone: [facility] 04-07-2024 [id number] Body temperature 99.5 [degF] Tia Lindo MD Work Phone: [facility] [id number] Body weight 43 kg Tia Lindo MD Work Phone: [facility] 04-07-2024 13:29-0400 Diastolic blood pressure 78 mm[Hg] Tia Lindo MD Work Phone: [facility] 04-07-2024 13:290400 Heart rate 87 /min Tia Lindo MD Work Phone: [facility] 04-07-2024 13:29-0400 SaO2% (BldA) [Mass fraction] 97 % Tia Lindo MD Work Phone: [facility] 04-07-2024 13:29-0400 Systolic blood pressure 135 mm[Hg] Tia Lindo MD Work Phone: [facility] [id number] Body height 157.5 cm Stephie Ramirez APRN.CNP Work Phone: [facility] [id number] Body weight 41.01 kg Stephie Ramirez APRN.CNP Work Phone: [facility] 03-09-2024 13:26-0400 Diastolic blood pressure 76 mm[Hg] Stephie Ramirez APRN.CNP Work Phone: [facility] 03-09-2024 13:26-0400 Systolic blood pressure 128 mm[Hg] Stephie Ramirez APRN.BUGGY LADLE TENDER Work Phone: [facility] 02-25-2024 15:20-0400 Body height 157.5 cm Jean Pierre Kilgore MD Work Phone: [facility] 02-25-2024 15:20-0400 Body mass index (BMI) [Ratio] 16.29 kg/m2 Jean Pierre Kilgore MD Work Phone: [facility] 02-25-2024 15:20-0400 Body temperature 98.49 [degF] Jean Pierre Kilgore MD Work Phone: [facility] 02-25-2024 15:20-0400 Body weight 40.4 kg Jean Pierre Kilgore MD Work Phone: [facility] 02-25-2024 15:20-0400 Diastolic blood pressure 80 mm[Hg] Jean Pierre Kilgore MD Work Phone: [facility] 02-25-2024 15:20-0400 Heart rate 84 /min Jean Pierre iKlgore MD Work Phone: [facility] 02-25-2024 15:20-0400 SaO2% (BldA) [Mass fraction] 95 % Jean Pierre Kilgore MD Work Phone: [facility] 02-25-2024 15:20-0400 Systolic blood pressure 126 mm[Hg] Jean Pierre Kilgore MD Work Phone: [facility] 09-24-2023 08:17-0400 Body height 160 cm She Pete DO Work Phone: [facility] 09-24-2023 08:17-0400 Body temperature 98.6 [degF] She Pete DO Work Phone: [facility] 09-24-2023 08:17-0400 Body weight 39.69 kg She Pete DO Work Phone: [facility] 09-24-2023 08:17-0400 Diastolic blood pressure 60 mm[Hg] She Pete DO Work Phone: [facility] 09-24-2023 08:17-0400 Heart rate 106 /min She Pete DO Work Phone: [facility] 09-24-2023 08:17-0400 SaO2% (BldA) [Mass fraction] 95 % She Pete DO Work Phone: [facility] 09-24-2023 08:17-0400 Systolic blood pressure 100 mm[Hg] She Pete DO Work Phone: [facility] 08-18-2023 11:20-0400 Body height 158 cm Fredo Masci DO Work Phone: [facility] 08-18-2023 11:20-0400 Body temperature 100.6 [degF] Fredo Masci DO Work Phone: [facility] 08-18-2023 11:20-0400 Body weight 37.65 kg Fredo Masci DO Work Phone: [facility] 08-18-2023 11:20-0400 Diastolic blood pressure 96 mm[Hg] Fredo Masci DO Work Phone: [facility] 08-18-2023 11:20-0400 Heart rate 125 /min Fredo Masci DO Work Phone: [facility] 08-18-2023 11:20-0400 SaO2% (BldA) [Mass fraction] 97 % Fredo Masci DO Work Phone: [facility] 08-18-2023 11:20-0400 Systolic blood pressure 147 mm[Hg] Fredo Masci DO Work Phone: [facility] 08-11-2023 13:34-0400 Body height 157.5 cm Stephie Ramirez APRN.BU[employer]Y LADLE TENDER Work Phone: [facility] 08-11-2023 13:34-0400 Body weight 39.96 kg Stephie Ramirez APRN.BUGGY LADLE TENDER Work Phone: [facility] 08-11-2023 13:34-0400 Diastolic blood pressure 82 mm[Hg] Stephie Ramirez ACCOUNTING REPRESENTATIVE.BU[employer]ADLE TENDER Work Phone: [facility] 08-11-2023 13:34-0400 Systolic blood pressure 140 mm[Hg] Stephie Ramirez ACCOUNTING REPRESENTATIVE.BU[employer]ADLE TENDER Work Phone: [facility] 07-02-2023 13:04-0400 Body temperature 101.5 [degF] Sally Bucur ACCOUNTING REPRESENTATIVE.BU[employer]ADLE TENDER Work Phone: [facility] 07-02-2023 13:04-0400 Body weight 39.5 kg Sally Bucur ACCOUNTING REPRESENTATIVE.BU[employer]ADLE TENDER Work Phone: [facility] 07-02-2023 13:04-0400 Diastolic blood pressure 65 mm[Hg] Sally Bucur ACCOUNTING REPRESENTATIVE.BU[employer]ADLE TENDER Work Phone: [facility] 07-02-2023 13:04-0400 Heart rate 118 /min Sally Bucur ACCOUNTING REPRESENTATIVE.BUGG[employer] LADLE TENDER Work Phone: [facility] 07-02-2023 13:04-0400 Respiratory rate 16 /min Sally Bucur ACCOUNTING REPRESENTATIVE.BUGGY LADLE TENDER Work Phone: [facility] 07-02-2023 13:04-0400 SaO2% (BldA) [Mass fraction] 92 % Sally Bucur ACCOUNTING REPRESENTATIVE.BUGG[employer] LADLE TENDER Work Phone: [facility] 07-02-2023 13:04-0400 Systolic blood pressure 110 mm[Hg] Sally Bucur ACCOUNTING REPRESENTATIVE.BUGGY LADLE TENDER Work Phone: [facility] 06-04-2023 15:23-0400 Body height 158.5 cm Jean Pierre Kilgore MD Work Phone: [facility] 06-04-2023 15:23-0400 Body temperature 99 [degF] Jean Pierre Kilgore MD Work Phone: [facility] 06-04-2023 15:23-0400 Body weight 40.51 kg Jean Pierre Kilgore MD Work Phone: [facility] 06-04-2023 15:23-0400 Diastolic blood pressure 70 mm[Hg] Jean Pierre Kilgore MD Work Phone: [facility] 06-04-2023 15:23-0400 Heart rate 86 /min Jean Pierre Kilgore MD Work Phone: [facility] 06-04-2023 15:23-0400 Respiratory rate 19 /min Jean Pierre Kilgore MD Work Phone: [facility] 06-04-2023 15:23-0400 SaO2% (BldA) [Mass fraction] 98 % Jean Pierre Kilgore MD Work Phone: [facility] 06-04-2023 15:23-0400 Systolic blood pressure 110 mm[Hg] Jean Pierre Kilgore MD Work Phone: [facility] 04-07-2023 14:28-0400 Body height 157.5 cm Stephie Ramirez APRN.[employer] LADLE TENDER Work Phone: [facility] 04-07-2023 14:28-0400 Body weight 42.09 kg Stephie Ramirez APRN.BUGGY LADLE TENDER Work Phone: [facility] 04-07-2023 14:28-0400 Diastolic blood pressure 78 mm[Hg] Stephie Ramirez APRN.BUGGY LADLE TENDER Work Phone: [facility] 04-07-2023 14:28-0400 Systolic blood pressure 148 mm[Hg] Stephie Ramirez APRN.BUGGY LADLE TENDER Work Phone: [facility] 04-01-2023 15:08-0400 Diastolic blood pressure 98 mm[Hg] Lab/Port Wstr Work Phone: [facility] 04-01-2023 15:08-0400 Heart rate 96 /min Lab/Port Wstr Work Phone: [facility] 04-01-2023 15:08-0400 SaO2% (BldA) [Mass fraction] 100 % Lab/Port Wstr Work Phone: [facility] 04-01-2023 15:08-0400 Systolic blood pressure 150 mm[Hg] Lab/Port Wstr Work Phone: [facility] 03-20-2023 12:02-0400 Body height 157.[address] Work Phone: [facility] 03-20-2023 12:02-0400 Body weight 40.[address] Work Phone: [facility] 03-19-2023 15:50-0400 Body height 157.5 cm She Benninger DO Work Phone: [facility] 03-19-2023 15:50-0400 Body temperature 98.01 [degF] She Benninger DO Work Phone: [facility] 03-19-2023 15:50-0400 Body weight 41 kg She Benninger DO Work Phone: [facility] 03-19-2023 15:50-0400 Diastolic blood pressure 80 mm[Hg] She Benninger DO Work Phone: [facility] 03-19-2023 15:50-0400 Heart rate 85 /min She Benninger DO Work Phone: [facility] 03-19-2023 15:50-0400 Respiratory rate 18 /min She Benninger DO Work Phone: [facility] 03-19-2023 15:50-0400 SaO2% (BldA) [Mass fraction] 98 % She Benninger DO Work Phone: [facility] 03-19-2023 15:50-0400 Systolic blood pressure 140 mm[Hg] She Benninger DO Work Phone: [facility] 03-05-2023 15:59-0400 Body height 157.5 cm Jean Pierre Kilgore MD Work Phone: [facility] 03-05-2023 15:59-0400 Body temperature 98.01 [degF] Jean Pierre Kilgore MD Work Phone: [facility] 03-05-2023 15:59-0400 Body weight 39.4 kg Jean Pierre Kilgore MD Work Phone: [facility] 03-05-2023 15:59-0400 Diastolic blood pressure 90 mm[Hg] Jean Pierre Kilgore MD Work Phone: [facility] 03-05-2023 15:59-0400 Heart rate 105 /min Jean Pierre Kilgore MD Work Phone: [facility] 03-05-2023 15:59-0400 Respiratory rate 24 /min Jean Pierre Kilgore MD Work Phone: [facility] 03-05-2023 15:59-0400 SaO2% (BldA) [Mass fraction] 97 % Jean Pierre Kilgore MD Work Phone: [facility] 03-05-2023 15:59-0400 Systolic blood pressure 140 mm[Hg] Jean Pierre Kilgore MD Work Phone: [facility] 02-26-2023 14:09-0400 Body temperature 97.81 [degF] Jean Pierre Kilgore MD Work Phone: [facility] 02-26-2023 14:09-0400 Body weight 38.92 kg Jean Pierre Kilgore MD Work Phone: [facility] 02-26-2023 14:09-0400 Diastolic blood pressure 60 mm[Hg] Jean Pierre Kilgore MD Work Phone: [facility] 02-26-2023 14:09-0400 Heart rate 91 /min Jean Pierre Kilgore MD Work Phone: [facility] 02-26-2023 14:09-0400 Respiratory rate 19 /min Jean Pierre Kilgore MD Work Phone: [facility] 02-26-2023 14:09-0400 SaO2% (BldA) [Mass fraction] 97 % Jean Pierre Kilgore MD Work Phone: [facility] 02-26-2023 14:09-0400 Systolic blood pressure 118 mm[Hg] Jean Pierre Kilgore MD Work Phone: [facility] 12-20-2022 12:59-0500 Body height 157.5 cm Stephie Ramirez APRN.BUGGY LADLE TENDER Work Phone: [facility] 12-20-2022 12:59-0500 Body weight 40.55 kg Stephie Ramirez APRN.BUGGY LADLE TENDER Work Phone: [facility] 12-20-2022 12:59-0500 Diastolic blood pressure 80 mm[Hg] Stephie Ramirez APRN.BUGGY LADLE TENDER Work Phone: [facility] 12-20-2022 12:59-0500 Systolic blood pressure 142 mm[Hg] Stephie Ramirez APRN.BUGGY LADLE TENDER Work Phone: [facility] 12-05-2022 15:11-0500 Body temperature 97.5 [degF] [facility] Work Phone: 12-05-2022 15:11-0500 Diastolic blood pressure 97 mm[Hg] [facility] Work Phone: 12-05-2022 15:11-0500 Heart rate 92 /min [facility] Work Phone: 12-05-2022 15:11-0500 Respiratory rate 14 /min [facility] Work Phone: 12-05-2022 15:11-0500 SaO2% (BldA) [Mass fraction] 98 % [facility] Work Phone: 12-05-2022 15:11-0500 Systolic blood pressure 138 mm[Hg] [facility] Work Phone: 12-04-2022 15:38-0500 Body height 157.5 cm Jean Pierre Kilgore MD Work Phone: [facility] 12-04-2022 15:38-0500 Body temperature 99.39 [degF] Jean Pierre Kilgore MD Work Phone: [facility] 12-04-2022 15:38-0500 Body weight 40.61 kg Jean Pierre Kilgore MD Work Phone: [facility] 12-04-2022 15:38-0500 Diastolic blood pressure 90 mm[Hg] Jean Pierre Kilgore MD Work Phone: [facility] 12-04-2022 15:38-0500 Heart rate 100 /min Jean Pierre Kilogre MD Work Phone: [facility] 12-04-2022 15:38-0500 Respiratory rate 19 /min Jean Pierre Kilgore MD Work Phone: [facility] 12-04-2022 15:38-0500 SaO2% (BldA) [Mass fraction] 96 % Jean Pierre Kilgore MD Work Phone: [facility] 12-04-2022 15:38-0500 Systolic blood pressure 140 mm[Hg] Jean Pierre Kilgore MD Work Phone: [facility] 11-20-2022 08:19-0500 Body height 157.5 cm She Benninger DO Work Phone: [facility] 11-20-2022 08:19-0500 Body temperature 98.8 [degF] She Benninger DO Work Phone: [facility] 11-20-2022 08:19-0500 Body weight 39.3 kg She Benninger DO Work Phone: [facility] 11-20-2022 08:19-0500 Diastolic blood pressure 80 mm[Hg] She Benninger DO Work Phone: [facility] 11-20-2022 08:19-0500 Heart rate 100 /min She Benninger DO Work Phone: [facility] 11-20-2022 08:19-0500 Respiratory rate 16 /min She Benninger DO Work Phone: [facility] 11-20-2022 08:19-0500 SaO2% (BldA) [Mass fraction] 95 % She Benninger DO Work Phone: [facility] 11-20-2022 08:19-0500 Systolic blood pressure 118 mm[Hg] She Benninger DO Work Phone: [facility] 09-11-2022 08:47-0400 Body height 157.5 cm She Benninger DO Work Phone: [facility] 09-11-2022 08:47-0400 Body temperature 98.8 [degF] She Hunterninger DO Work Phone: [facility] 09-11-2022 08:47-0400 Body weight 41.59 kg She Bether DO Work Phone: [facility] 09-11-2022 08:47-0400 Diastolic blood pressure 103 mm[Hg] She Daleninger DO Work Phone: [facility] 09-11-2022 08:47-0400 Heart rate 95 /min She Bether DO Work Phone: [facility] 09-11-2022 08:47-0400 SaO2% (BldA) [Mass fraction] 98 % She Bether DO Work Phone: [facility] 09-11-2022 08:47-0400 Systolic blood pressure 153 mm[Hg] She Benninger DO Work Phone: [facility] 08-09-2022 09:55-0400 Body height 157 cm Sally Bucur ACCOUNTING REPRESENTATIVE.BUGGY LADLE TENDER Work Phone: [facility] 08-09-2022 09:55-0400 Body temperature 99.1 [degF] Sally Bucur ACCOUNTING REPRESENTATIVE.BUGGY LADLE TENDER Work Phone: [facility] 08-09-2022 09:55-0400 Body weight 39.4 kg Sally Bucur ACCOUNTING REPRESENTATIVE.BUGGY LADLE TENDER Work Phone: [facility] 08-09-2022 09:55-0400 Diastolic blood pressure 60 mm[Hg] Sally Bucur ACCOUNTING REPRESENTATIVE.BUGGY LADLE TENDER Work Phone: [facility] 08-09-2022 09:55-0400 Heart rate 95 /min Sally Bucur ACCOUNTING REPRESENTATIVE.BUGGY LADLE TENDER Work Phone: [facility] 08-09-2022 09:55-0400 Respiratory rate 17 /min Sally Bucur ACCOUNTING REPRESENTATIVE.BUGGY LADLE TENDER Work Phone: [facility] 08-09-2022 09:55-0400 SaO2% (BldA) [Mass fraction] 98 % Sally Bucur ACCOUNTING REPRESENTATIVE.BUGGY LADLE TENDER Work Phone: [facility] 08-09-2022 09:55-0400 Systolic blood pressure 110 mm[Hg] Sally Bucur ACCOUNTING REPRESENTATIVE.BUGGY LADLE TENDER Work Phone: [facility] 2022 09:31-0400 Body height 157.5 cm She Benninger DO Work Phone: [facility] 2022 09:31-0400 Body temperature 99.5 [degF] She Benninger DO Work Phone: [facility] 2022 09:31-0400 Body weight 38.42 kg She Benninger DO Work Phone: [facility] 2022 09:31-0400 Diastolic blood pressure 76 mm[Hg] She Benninger DO Work Phone: [facility] 2022 09:31-0400 Heart rate 117 /min She Daleninger DO Work Phone: [facility] 2022 09:31-0400 SaO2% (BldA) [Mass fraction] 96 % She Benninger DO Work Phone: [facility] 2022 09:31-0400 Systolic blood pressure 138 mm[Hg] She Benninger DO Work Phone: [facility] 05-14-2022 09:40-0400 Heart rate 80 /min Sabina Larios MD Work Phone: [facility] 05-14-2022 09:40-0400 Respiratory rate 20 /min Sabina Larios MD Work Phone: [facility] 05-14-2022 09:40-0400 SaO2% (BldA) [Mass fraction] 95 % Sabina Larios MD Work Phone: [facility] 05-14-2022 09:20-0400 Body temperature 98.4 [degF] Sabina Larios MD Work Phone: [facility] 05-14-2022 09:20-0400 Diastolic blood pressure 85 mm[Hg] Sabina Larios MD Work Phone: [facility] 05-14-2022 09:20-0400 Systolic blood pressure 144 mm[Hg] Sabina Larios MD Work Phone: [facility] 05-14-2022 02:20-0400 Body height 152 cm CURTIS CISNEROS MD [facility] 05-14-2022 02:20-0400 Body weight 37.9 kg CURTIS CISNEROS MD [facility] 05-14-2022 02:20-0400 Body weight 16.4 kg/m2 CURTIS CISNEROS MD [facility] 05-13-2022 01:23-0400 Body height 152 cm CURTIS CISNEROS MD [facility] 05-13-2022 01:23-0400 Body weight 16.4 kg/m2 CURTIS CISNEROS MD [facility] 05-13-2022 01:23-0400 Body weight 37.9 kg CURTIS CISNEROS MD [facility] 05-12-2022 16:10-0400 Body mass index (BMI) [Ratio] 16.4 kg/m2 Sabina Larios MD Work Phone: [facility] 05-12-2022 16:10-0400 Body weight 37.9 kg Sabina Larios MD Work Phone: [facility] Encounters Encounter Date Encounter Type Care Provider Facility Start: 04-26-2025 End: 04-26-2025 Orders Only Sally Schneider APRN.BUGGY LADLE TENDER Work Phone: Pulmonary Medicine Comment on above: Cystic fibrosis (HCC ) (Primary Dx) Start: 04-15-2025 End: 04-15-2025 ambulatory FERNANDO ZHAGN Facility:[facility] Start: 04-07-2025 End: 04-08-2025 Orders Only Fernando Zhang RD Work Phone: Pulmonary Medicine Comment on above: Cystic fibrosis with pulmonary manifestations (HCC) (Primary Dx) Refill Request Start: 04-06-2025 End: 04-06-2025 Telephone encounter Sally Schneider APRN.BUGGY LADLE TENDER Work Phone: Pulmonary Medicine Comment on above: Composing Machine Operator - O ther (Formerly [facility], [facility]–1983) Start: 04-06-2025 End: 04-06-2025 ambulatory JEAN PIERRE KILGORE Facility:[facility] Start: 04-04-2025 End: 04-04-2025 Chart abstracting Fernando Zhang RD Work Phone: Pulmonary Medicine Comment on above: Abstract Cystic fibrosis (HCC ) (Primary Dx) Start: 03-18-2025 End: 03-18-2025 Telephone encounter Varsha LIVE Pulmonary Medicine Comment on above: Prior Authorization Start: 02-15-2025 End: 02-18-2025 Follow-up encounter Sally Schneider APRN.BUGGY LADLE TENDER Work Phone: Pulmonary Medicine Start: 02-14-2025 End: 02-14-2025 Patient encounter procedure Stephie Ramirez APRN.BUGGY LADLE TENDER Work Phone: [facility] Endocrinology Comment on above: Type 1 diabetes ximena itus with hyperglycemia (HCC) (Primary Dx); 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) Start: 02-14-2025 End: 02-14-2025 ambulatory SALLY [facility] Facility:[facility] Start: 02-10-2025 End: 02-14-2025 Follow-up encounter Sally Schneider APRN.CNP Work Phone: Pulmonary Medicine Start: 02-09-2025 End: 02-09-2025 ambulatory [facility] Facility:[facility] Start: 02-09-2025 End: 02-09-2025 ambulatory [facility] Pulmonary Medicine Comment on above: Spirometry Start: 02-09-2025 End: 02-09-2025 Patient encounter procedure Pulm Fct Lab 1 - A110 Work Phone: Pulmonary Medicine Comment on above: Cystic fibrosis (HCC ) (Primary Dx); Fever, unspecified fever cause; Hyperkalemia; 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); Cystic fibrosis with pulmonary manifestations (HCC); Pseudomonas aeruginosa infection; Burkholderia cepacia infection; 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); Vitamin D deficiency; Elevated liver enzymes level due to cystic fibrosis (HCC) (HCC) Start: 02-08-2025 End: 04-10-2025 Follow-up encounter Anabel Smart APRN.BUGGY LADLE TENDER [facility] Start: 02-08-2025 End: 02-08-2025 ambulatory [facility] Facility:[facility] Start: 02-07-2025 End: 02-07-2025 Telephone encounter Zaida Santos RN Work Phone: Pulmonary Medicine Start: 02-07-2025 End: 02-07-2025 Subsequent hospital visit by physician Brisa [facility] Work Phone: Radiology Comment on above: Subacute cough [R05. 2] Start: 02-07-2025 End: 02-07-2025 ambulatory FARRUKH GOMES Facility:[facility] Start: 02-07-2025 End: 02-07-2025 Office outpatient visit 25 minutes Farrukh Gomes MD Work Phone: [facility] Comment on above: Sore throat (Primary Dx); Subacute cough; Fever, unspecified fever cause; Cystic fibrosis (HCC) Start: 02-01-2025 End: 02-01-2025 ambulatory SALLY [facility] Facility:[facility] Start: 02-01-2025 End: 02-01-2025 Subsequent hospital visit by physician Xr [facility] Work Phone: Radiology Comment on above: Cystic fibrosis with pulmonary manifestations (HCC) [E84.0] Start: 01-31-2025 End: 01-31-2025 ambulatory Sally Bucur ACCOUNTING REPRESENTATIVEINÉS Work Phone: Pulmonary Medicine Comment on above: Fever and coughing Start: 01-07-2025 End: 01-07-2025 ambulatory JEAN PIERRE KILGORE Facility:[facility] Start: 01-05-2025 End: 01-05-2025 Office outpatient visit 40 minutes Jean Pierre Kilgore MD Work Phone: Pulmonary Medicine Comment on above: Cystic fibrosis with pulmonary manifestations (HCC) (Primary Dx); 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) Start: 01-05-2025 End: 01-05-2025 ambulatory JEAN PIERRE KILGORE Pulmonary Medicine Comment on above: Spirometry Start: 01-05-2025 End: 01-05-2025 Patient encounter procedure Pulm Lab [facility] Work Phone: Pulmonary Medicine Start: 12-30-2024 End: 12-30-[address] Work Phone: Pulmonary Medicine Start: 12-30-2024 End: 12-30-2024 Chart abstracting Fernando Zhang RD Work Phone: Pulmonary Medicine Comment on above: Abstract Start: 11-16-2024 End: 11-16-2024 Telephone encounter Fernando Zhang RD Work Phone: Pulmonary Medicine Start: 10-14-2024 End: 10-14-2024 Telephone encounter Stephie Ramirez APRN.BUGGY LADLE TENDER Work Phone: [facility] Comment on above: Results Start: 10-12-2024 End: 10-12-2024 Patient encounter procedure Stephie Ramirez APRN.BUGGY LADLE TENDER Work Phone: [facility] Comment on above: Type 1 diabetes ximena itus with hyperglycemia (HCC) (Primary Dx); 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) Start: 10-12-2024 End: 10-12-2024 ambulatory SALLY BUCUR Facility:[facility] Start: 10-11-2024 End: 10-11-2024 Telephone encounter Zaida Santos RN Work Phone: Pulmonary Medicine Start: 10-06-2024 End: 10-07-2024 ambulatory [facility] Pulmonary Medicine Comment on above: Spirometry Start: 10-06-2024 End: 10-06-2024 Patient encounter procedure Pulm Fct Lab 2 - A110 Work Phone: Pulmonary Medicine Comment on above: Cystic fibrosis (HCC ) (Primary Dx) Start: 10-04-2024 End: 10-04-2024 Chart abstracting Fernando Zhang RD Work Phone: Pulmonary Medicine Start: 09-28-2024 End: 09-28-2024 Telephone encounter Fernando Zhang RD Work Phone: Pulmonary Medicine Comment on above: Composing Machine Operator - O ther Start: 09-27-2024 End: 09-27-2024 Orders Only Fernando Zhang RD Work Phone: Pulmonary Medicine Comment on above: Cystic fibrosis (HCC ) (Primary Dx) Start: 09-23-2024 End: 09-27-2024 ambulatory Sally Bucur ACCOUNTING REPRESENTATIVE.BUGGY LADLE TENDER Work Phone: Pulmonary Medicine Comment on above: Nebulizers and BP me ds Start: 09-16-2024 End: 09-16-2024 Orders Only Varsha LIVE Pulmonary Medicine Comment on above: Cystic fibrosis with pulmonary manifestations (HCC) (Primary Dx); Hyperkalemia Start: 09-15-2024 End: 09-16-2024 Refill Nell Lozano [facility] Pulmonary Medicine Comment on above: Refill Request Patient Update (PICC Line Pulled at [facility]) Start: 09-13-2024 End: 09-13-2024 ambulatory [facility] Facility:[facility] Start: 09-10-2024 End: 09-10-2024 Telephone encounter Zaida Santos RN Work Phone: Pulmonary Medicine Start: 09-10-2024 End: 09-10-2024 ambulatory [facility] Facility:[facility] Start: 09-09-2024 End: 09-09-2024 ambulatory Pulm Fct Lab Main 4 Pulmonary Medicine Comment on above: Spirometry Cystic fibrosis (HCC ) (Primary Dx); Cystic fibrosis exacerbation (HCC) Start: 09-09-2024 End: 09-09-2024 Patient encounter procedure Pulm Fct Lab Main 4 Pulmonary Medicine Comment on above: Cystic fibrosis (HCC ) (Primary Dx); Hyperkalemia; Cystic fibrosis with pulmonary manifestations (HCC); Cystic fibrosis with pulmonary exacerbation (HCC); Burkholderia cepacia infection; Pseudomonas aeruginosa infection; 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); Chronic sinusitis, unspecified location; 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) Start: 09-08-2024 End: 09-08-2024 [facility] Facility:[facility] Start: 09-07-2024 End: 09-07-2024 [facility] Facility:[facility] Start: 09-03-2024 End: 09-03-2024 Chart abstracting Zaida Santos RN Work Phone: Pulmonary Medicine Start: 09-03-2024 End: 09-03-2024 Telephone encounter Sally Schneider APRN.CNP Work Phone: Pulmonary Medicine Comment on above: Received Outside Med ical Records Start: 09-03-2024 End: 09-03-2024 ambulatory [facility] Facility:[facility] Start: 09-02-2024 End: 09-02-2024 Telephone encounter Zaida Santos RN Work Phone: Pulmonary Medicine Start: 09-01-2024 ambulatory [facility] Facility:[facility] [place] [facility] Start: 09-01-2024 End: 09-01-2024 Telephone encounter Sally Schneider ACCOUNTING REPRESENTATIVE.BUGGY LADLE TENDER Work Phone: Pulmonary Medicine Start: 09-01-2024 End: 09-01-2024 ambulatory [facility] Facility:[facility] [place] [facility] Start: 08-31-2024 End: 09-02-2024 ambulatory [facility] Facility:[facility] Start: 08-31-2024 End: 08-31-2024 Telephone encounter Sally Buccecily ACCOUNTING REPRESENTATIVE.BUGGY LADLE TENDER Work Phone: Pulmonary Medicine Comment on above: Critical Results Composing Machine Operator - O ther Start: 08-31-2024 End: 08-31-2024 [facility] Facility:[facility] Start: 08-30-2024 End: 08-30-2024 ambulatory Sally Jennie ACCOUNTING REPRESENTATIVE.BUGGY LADLE TENDER Work Phone: Pulmonary Medicine Comment on above: Kayexalate Start: 08-27-2024 End: 08-27-2024 Orders Only Zaida Santos RN Work Phone: Pulmonary Medicine Comment on above: Hyperkalemia (Primar y Dx); Cystic fibrosis (HCC) Start: 08-25-2024 End: 08-25-2024 Telephone encounter Varsha LIVE Pulmonary Medicine Comment on above: Medication Problem ( Vanco timing) Composing Machine Operator - O ther Start: 08-23-2024 End: 08-23-2024 ambulatory [facility] Facility:[facility] Start: 08-20-2024 End: 08-20-2024 Chart abstracting Zaida Santos RN Work Phone: Pulmonary Medicine Start: 08-19-2024 End: 08-19-2024 Telephone encounter Zaida Santos RN Work Phone: Pulmonary Medicine Comment on above: Follow Up Phone Call ; 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Start: 08-19-2024 End: 08-19-2024 Patient encounter procedure Picc Nurse [facility] PICC [facility] Comment on above: Cystic fibrosis with pulmonary exacerbation (HCC); 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 Start: 08-19-2024 End: 08-19-2024 ambulatory JEAN PIERRE KILGORE Facility:[facility] Start: 08-18-2024 End: 08-18-2024 ambulatory JEAN PIERRE KILGORE Facility:[facility] Start: 08-18-2024 End: 08-18-2024 Office outpatient visit [...] 08-18-2024 End: 08-18-2024 Patient encounter procedure Pulm Lab [facility] Work Phone: Pulmonary Medicine Start: 08-12-2024 End: 08-13-2024 ambulatory Sally Schneider APRN.CNP Work Phone: Pulmonary Medicine Comment on above: [...] 07-16-2024 End: 07-16-2024 ambulatory JEAN PIERRE KILGORE Facility:[facility] Start: 07-06-2024 End: 07-06-2024 Patient encounter procedure Stephie Ramirez APRN.BUGGY LADLE TENDER Work Phone: [facility] Endocrinology Comment on above: Type 1 diabetes ximena itus with hyperglycemia (HCC) (Primary Dx) Start: 07-06-2024 End: 07-06-2024 ambulatory STEPHIE RAMIREZ Facility:[facility] Start: 07-05-2024 Chart abstracting Stephie Ramirez APRN.BUGGY LADLE TENDER Work Phone: [facility] Endocrinology Start: 05-15-2024 Refill Tia Lino Work Phone: Gastroenterology Comment on above: Refill Request Start: 05-10-2024 Orders Only Fernando Zhang RD Work Phone: Pulmonary Medicine Comment on above: Cystic fibrosis (HCC ) (Primary Dx); 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); 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) Start: 05-07-2024 End: 05-07-2024 ambulatory MONO Shereen HOROCIO Facility:[facility] Start: 05-07-2024 End: 05-07-2024 Subsequent hospital visit by physician [facility] (I-Stat/1.5t) Work Phone: Radiology Comment on above: Abnormal results of liver function studies [R94.5] Start: 05-05-2024 End: 05-06-2024 Office outpatient visit 40 minutes Jean Pierre Kilgore MD Work Phone: Pulmonary Medicine Comment on above: Cystic fibrosis with pulmonary manifestations (HCC) (Primary Dx); 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) Start: 05-05-2024 End: 05-07-2024 Orders Only Nell ARMANDO Pulmonary Medicine Comment on above: Cystic fibrosis with pulmonary manifestations (HCC) (Primary Dx) Cystic fibrosis (HCC ) (Primary Dx) Spirometry Patient Education; R eassessment Start: 04-30-2024 Chart abstracting Zaida viera RN Work Phone: Pulmonary Medicine Start: 04-07-2024 End: 04-07-2024 Patient encounter procedure Tia Lindo MD Work Phone: Gastroenterology Comment on above: Elevated alkaline ph osphatase level (Primary Dx) Start: 03-26-2024 Telephone encounter Nell Oswaldtamela Tan Pulmonary Medicine Comment on above: Benefits Authorizati on (SPS [Denied Mar 26]) Start: 03-17-2024 Orders Only Zaida kumari RN Work Phone: Pulmonary Medicine Comment on above: 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) Start: 03-09-2024 End: 03-09-2024 Patient encounter procedure Stephie Ramirez APRN.BUGGY LADLE TENDER Work Phone: [facility] Endocrinology Comment on above: Type 1 diabetes ximena itus with hyperglycemia (HCC) (Primary Dx) Start: 03-09-2024 End: 03-09-2024 ambulatory STEPHIE RAMIREZ Facility:[facility] Start: 03-08-2024 ambulatory Zaida kumari RN Work Phone: Pulmonary Medicine Comment on above: Lab work tomorrow Start: 03-08-2024 E-mail encounter fro m caregiver Zaida Santos RN Work Phone: [facility] Start: 03-02-2024 End: 03-02-2024 ambulatory Lab/[place] [facility] Work Phone: Hematology/Oncology Comment on above: Cystic fibrosis with pulmonary exacerbation (HCC) (Primary Dx) Start: 03-01-2024 Telephone encounter Sally castillo ACCOUNTING REPRESENTATIVE.BUGGY LADLE TENDER Work Phone: Pulmonary Medicine Comment on above: Patient Question Start: 02-28-2024 Refill Stephie Ramirez APRN.BUGGY LADLE TENDER Work Phone: [facility] Endocrinology Comment on above: Refill Request Start: 02-25-2024 End: 02-25-2024 Office outpatient visit [...] due to nephrotoxicity (HCC) (HCC) Start: 02-25-2024 ambulatory Fiordaliza Mcfarlane RPh Infecti ous Disease Comment on above: [employer] Start: 02-24-2024 End: 02-24-2024 ambulatory Jasmyn Bailon MD Work Phone: Infectious Disease Comment on above: Outside Lab Results Start: 02-24-2024 End: 02-24-2024 Patient encounter procedure [facility] Work Phone: Start: 02-20-2024 Telephone encounter Varsha GARCIA Pulmonary Medicine Comment on above: Returning Patient's Call (insurance) Start: 02-19-2024 ambulatory Fiordaliza Mcfarlane RPh Infecti ous Disease Comment on above: Dose Change Copat (v ancomycin) Start: 02-19-2024 Telephone encounter Jean Pierre Kilgore MD Work Phone: Pulmonary Medicine Comment on above: Patient Question Start: 02-18-2024 ambulatory Fiordaliza Mcfarlane RPh Infecti ous Disease Comment on above: CoPat Management (We ekly labs) Start: 02-18-2024 Chart abstracting Zaida viera RN Work Phone: Pulmonary Medicine Start: 02-18-2024 Telephone encounter Zaida Santos RN Work Phone: Pulmonary Medicine Comment on above: Cystic fibrosis exac erbation (HCC) (Primary Dx); Cystic fibrosis with pulmonary exacerbation (HCC) Start: 02-17-2024 End: 02-17-2024 ambulatory Jasmyn Bailon MD Work Phone: [facility] Work Phone: Comment on above: Outside Lab Results Start: 02-17-2024 Telephone encounter Randall MARTINS Comment on above: Follow Up Phone Call (RC f/u all clear/) Start: 02-17-2024 End: 02-17-2024 Patient encounter procedure [facility] Work Phone: Start: 02-16-2024 Orders Only Fernando Zhang RD Work Phone: Pulmonary Medicine Comment on above: Pancreatic insuffici ency due to cystic fibrosis (HCC) (HCC) (Primary Dx) [facility] Agency Start: 02-16-2024 End: 02-16-2024 Evaluation and management of inpatient Demetrice Storm DO Work Phone: Pulmonary Medicine Comment on above: Recheck Start: 02-15-2024 Telephone encounter Ivet atkinson MD Work Phone: Internal Medicine [place] Comment on above: Hospital F/U (/) Start: 02-13-2024 Chart abstracting Zaida viera RN Work Phone: Pulmonary Medicine Start: 02-12-2024 End: 02-12-2024 Evaluation and management of inpatient Demetrice Storm DO Work Phone: Pulmonary Medicine Comment on above: Dyspnea, unspecified type (Primary Dx) Start: 02-09-2024 ambulatory Jasmyn tan MD Work Phone: [facility] Comment on above: CoPat Start (Meropen em, vancomycin) Start: 02-03-2024 Telephone encounter Sally castillo APRN.BUGGY LADLE TENDER Work Phone: Pulmonary Medicine Comment on above: Patient Update Start: 01-02-2024 Chart abstracting Fernando guevara RD Work Phone: Pulmonary Medicine Comment on above: Cystic fibrosis (HCC ) (Primary Dx); 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); 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); Dietary counseling and surveillance; Vitamin D deficiency Start: 12-28-2023 Refill Stephie Ramirez APRN.BUGGY LADLE TENDER Work Phone: [facility] End[facility] Comment on above: Refill Request Start: 11-20-2023 Chart abstracting Stephie Ramirez APRN.BUGGY LADLE TENDER Work Phone: [facility] Start: 11-13-2023 Orders Only Fernando Zhang RD Work Phone: Pulmonary Medicine Comment on above: Cystic fibrosis (HCC ) (Primary Dx) Start: 11-12-2023 Social Work Varsha LIVE [facility] Start: 11-07-2023 Chart abstracting Zaida viera RN Work Phone: Pulmonary Medicine Start: 10-24-2023 Refill Forrest Hale MD Work [...] Subsequent hospital visit by physician Bone Density [place] [facility] Comment on above: Osteoporosis without current pathological fracture, unspecified osteoporosis type [M81.0] Start: 09-24-2023 End: 09-24-2023 Patient encounter procedure [...] Chronic pansinusitis; Severe protein-calorie malnutrition (HCC) Start: 09-17-2023 Chart abstracting Zaida viera RN Work Phone: Pulmonary Medicine Start: 08-21-2023 Telephone encounter Sally Dima castillo ACCOUNTING REPRESENTATIVE.BUGGY LADLE TENDER Work Phone: Pulmonary Medicine Start: 08-20-2023 Telephone encounter Fredo Chapman Venancio simone DO Work Phone: Hematology/Oncology Comment on above: Results Start: 08-18-2023 End: 08-18-2023 ambulatory Fredo Moreno DO Work Phone: Hematology/Oncology Comment on above: 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); Other specified intestinal malabsorption Start: 08-18-2023 End: 08-18-2023 Patient encounter procedure Fredo Moreno DO Work Phone: [facility] Start: 08-12-2023 Chart abstracting Cheyanne Kraus RRT P [facility] Medicine Comment on above: Home Nebulizer Order Start: 08-11-2023 End: 08-11-2023 Patient encounter procedure Stephie Ramirez ACCOUNTING REPRESENTATIVE.BUGGY LADLE TENDER Work Phone: [facility] [place] [facility] Comment on above: Type 1 [...] patient Jean Pierre Kilgore MD Work Phone: [facility] Start: 08-06-2023 Telephone encounter Varsha MARIA Pulmonary Medicine Comment on above: Composing Machine Operator - O ther (Medical records and DAVID.) Start: 08-02-2023 ambulatory She felix DO Work Phone: Pulmonary Medicine Comment on above: Potassium and kidney Start: 08-01-2023 Orders Only Nell ARMANDO Pul onary Medicine Comment on above: Osteoporosis without current pathological fracture, unspecified osteoporosis type (Primary Dx) Start: 07-30-2023 Refill Sally Bucur ACCOUNTING REPRESENTATIVE.BUGGY LADLE TENDER Work Phone: Pulmonary Medicine Comment on above: Refill Request Start: 07-24-2023 End: 07-24-2023 Evaluation and management of inpatient Pulm Fct Lab J-2 Pulmonary Medicine Comment on above: Cystic fibrosis (HCC ) (Primary Dx) Start: 2023 ambulatory Sally Bucur ACCOUNTING REPRESENTATIVE.BUGGY LADLE TENDER Work Phone: Pulmonary Medicine Comment on above: [...] Fct Lab 1 - A110 Work Phone: [facility] Comment on above: Cystic fibrosis [...] Work Phone: Pulmonary Medicine Comment on above: [facility] Start: 06-04-2023 End: 06-04-2023 Office outpatient visit 25 minutes Jean Pierre Kilgore MD Work Phone: Pulmonary Medicine Comment on above: Cystic fibrosis with pulmonary manifestations (HCC) (Primary Dx) Start: 06-04-2023 End: 06-04-2023 ambulatory [place] Work Phone: Pulmonary Medicine Comment on above: Spirometry Start: 06-04-2023 End: 06-04-2023 Patient encounter procedure [facility] [place] [facility] Work Phone: [place] [facility] Start: 06-02-2023 End: 06-02-2023 Subsequent hospital visit by physician Xr [facility] Maxwell Zimmer Work Phone: Radiology Comment on above: Cystic fibrosis (HCC ) [E84.9] Start: 06-02-2023 Chart abstracting Sally jones APRN.BUGGY LADLE TENDER Work Phone: Pulmonary Medicine Start: 06-02-2023 Telephone encounter Sally castillo APRN.BUGGY LADLE TENDER Work Phone: Pulmonary Medicine Comment on above: Results Start: 05-28-2023 Telephone encounter She ferreira DO Work Phone: Pulmonary Medicine Comment on above: Appointment Start: 05-19-2023 Telephone encounter Fernando funk RD Work Phone: Pulmonary Medicine Comment on above: Returning Patient's Call Cystic fibrosis (HCC ) (Primary Dx); 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) Start: 04-07-2023 End: 04-07-2023 Patient encounter procedure Stephie Ramirez APRN.BUGGY LADLE TENDER Work Phone: [facility] Comment on above: Type 1 diabetes ximena itus with hyperglycemia (HCC) (Primary Dx) Start: 04-07-2023 Chart abstracting Stephie Ramirez APRN.BUGGY LADLE TENDER Work Phone: [facility] Start: 04-01-2023 End: 04-01-2023 ambulatory Lab/[place] [facility] Work Phone: Hematology/Oncology Comment on above: [...] End: 03-26-2023 Patient encounter procedure [facility] [place] [employer] Work Phone: [facility] Start: 03-25-2023 ambulatory She Beth er DO Work Phone: Pulmonary Medicine Comment on above: Labs and respiratory viral panel Start: 03-25-2023 E-mail encounter santo rasmussen caregiver She Pete DO Work Phone: [facility] Start: 03-20-2023 ambulatory Lou Westbrook RN Infec tious Disease Comment on above: Extend CoPat (03/28) Start: 03-20-2023 Telephone encounter She ferreira DO Work Phone: Pulmonary Medicine Comment on above: Medication Problem Patient Update Start: 03-19-2023 End: 03-19-2023 Patient encounter procedure [facility] [place] [employer] Work Phone: Pulmonary Medicine Comment on above: [...] 03-19-2023 E-mail encounter fro m caregiver She Pete DO Work Phone: [facility] Start: 03-17-2023 ambulatory She felix DO Work Phone: Pulmonary Medicine Comment on above: Labs Start: 03-17-2023 Chart abstracting She sen DO Work Phone: Pulmonary Medicine Comment on above: CF chart review Start: 03-17-2023 E-mail encounter fro grady caregiver She Pete DO Work Phone: [facility] Start: 03-12-2023 ambulatory Anabel Michel MD Work Phone: Infectious Disease Comment on above: [facility] Agency Start: 03-10-2023 Orders Only Sally Schneider ACCOUNTING REPRESENTATIVE.BUGGY LADLE TENDER Work Phone: Pulmonary Medicine Comment on above: [...] Dx) Start: 03-05-2023 End: 03-05-2023 ambulatory [place] Work Phone: Pulmonary Medicine Comment on above: Spirometry Start: 03-05-2023 End: 03-05-2023 Patient encounter procedure Pulm Lab [facility] Work Phone: [facility] Start: 03-03-2023 Orders Only Nell ARMANDO Pulm onary Medicine Comment on above: Cystic fibrosis with pulmonary manifestations (HCC) (Primary Dx) Start: 02-27-2023 ambulatory Jean Pierre Kilgore MD Work Phone: [facility] Start: 02-27-2023 Follow-up encounter Jean Pierre Kilgore MD Work Phone: Pulmonary Medicine Comment on above: Visit follow up Start: 02-26-2023 ambulatory Stephie Ramirez APRN.BUGGY LADLE TENDER Work Phone: [facility] Comment on above: Dexcom Start: 02-26-2023 [...] q12h) Start: 12-20-2022 Chart abstracting Stephie Ramirez APRN.BUGGY LADLE TENDER Work Phone: [facility] Start: 12-20-2022 End: 12-20-2022 Patient encounter procedure Stephie Ramirez APRN.BUGGY LADLE TENDER Work Phone: [facility] Comment on above: Type 1 diabetes ximena itus with hyperglycemia (HCC) (Primary Dx) Start: 12-18-2022 Telephone encounter She ferreira DO Work Phone: Pulmonary Medicine Comment on above: Benefits Authorizati on Start: 12-06-2022 Telephone encounter Karlene jaramillo DO Work Phone: Kidney Medicine Comment on above: Appointment Start: 12-05-2022 Patient encounter procedure [facility] Start: 12-04-2022 End: 12-04-2022 ambulatory [facility] [place] Work Phone: Pulmonary Medicine Comment on above: Spirometry Start: 12-04-2022 End: 12-04-2022 Patient encounter procedure Pulm Lab [place] Work Phone: [facility] Comment on above: Need for prophylacti c [...] on above: Results Start: 11-28-2022 ambulatory She Ignacia er DO Work Phone: Pulmonary Medicine Comment on above: Labs Start: 11-27-2022 Orders Only She Ignacia er DO Work Phone: Pulmonary Medicine Comment on [...] Lab Results Infection (Primary D x) Start: 11-26-2022 Patient encounter procedure [facility] Start: 11-20-2022 End: 11-20-2022 ambulatory Luiza Rodriges MD Work Phone: Pulmonary Medicine Comment on above: Spirometry Extend CoPat (11/29) Refill Request Start: 11-20-2022 End: 11-20-2022 Patient encounter procedure Pulm Lab Yohana Stuart Work Phone: [facility] Comment on above: Cystic fibrosis with pulmonary exacerbation (HCC) (Primary Dx); Cystic fibrosis with pulmonary manifestations (HCC); 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); Cystic fibrosis with liver disease (HCC); Severe protein-calorie malnutrition (HCC); 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); Low weight Start: 11-19-2022 Telephone encounter Sally castillo APRN.BUGGY LADLE TENDER Work Phone: [facility] Comment on above: Insurance Authorizat ion (for 0.9% Sodium Chloride 1000 ml//Infuse 1000 ml daily for 4 days/) Start: 11-18-2022 Chart abstracting Miguelina Murray RN [facility] Medicine Comment on above: Cystic fibrosis with pulmonary exacerbation (HCC) (Primary Dx) Start: 11-18-2022 Telephone encounter She ferreira DO Work Phone: Pulmonary Medicine Comment on above: Outside Lab Results Start: 11-18-2022 End: 11-18-2022 ambulatory [facility] Work Phone: Start: 11-18-2022 End: 11-18-2022 Patient encounter procedure [facility] Start: 11-15-2022 End: 11-15-2022 ambulatory [facility] Work Phone: Start: 11-15-2022 End: 11-15-2022 Patient encounter procedure [facility] Start: 11-12-2022 ambulatory Luiza delatorre MD Work Phone: Infectious Disease Comment on above: [facility] Agency Start: 11-12-2022 Telephone encounter Luiza Rodriges MD Work Phone: [facility] Comment on above: Insurance Authorizat ion (for Vancomycin 750mg IV every 12 hours ,Meropenem 1.5gm IV every 8 hours ,Benadryl 50mg X50Nhitx) Start: 11-11-2022 Orders Only Sally Schneider ACCOUNTING REPRESENTATIVE.BUGGY LADLE TENDER Work Phone: Pediatric Pulmonary Comment on above: Cystic fibrosis (HCC ) (Primary Dx) Start: 11-08-2022 ambulatory Luiza delatorre MD Work Phone: [facility] Comment on above: CoPat Start Start: 11-05-2022 Chart abstracting Sally jones APRN.BUGGY LADLE TENDER Work Phone: Pulmonary Medicine Start: 11-05-2022 End: 11-05-2022 ambulatory Pulm A110 Work Phone: Pulmonary Medicine Comment on above: Spirometry Start: 11-05-2022 End: 11-05-2022 Patient encounter procedure Pulm Fct Lab 2 - A110 Work Phone: [facility] Start: 11-04-2022 Telephone encounter She ferreira DO Work Phone: Pulmonary Medicine Comment on above: Appointment Start: 10-02-2022 Refill Demetrice Rasmussen Sarahi more DO Work Phone: Pulmonary Medicine Comment on above: Refill Request Start: 09-25-2022 Refill She felix DO Work Phone: Pulmonary Medicine Comment on above: Refill Request Start: 09-12-2022 ambulatory She Beth er DO Work Phone: Pulmonary Medicine Comment on above: Liver enzymes Start: 09-12-2022 E-mail encounter santo rasmussen caregiver She Pete DO Work Phone: [facility] Start: 09-11-2022 E-mail encounter santo rasmussen caregiver She Pete DO Work Phone: [place] [facility] Start: 09-11-2022 Follow-up encounter She ferreira DO Work Phone: Family Medicine [facility] Comment on above: CF follow-up visit Start: 09-11-2022 End: 09-11-2022 ambulatory [place] Work Phone: Pulmonary Medicine Comment on above: Spirometry Start: 09-11-2022 End: 09-11-2022 Patient encounter procedure [facility] [place] Work Phone: [facility] Comment on above: CF (cystic fibrosis) (HCC) (Primary Dx); 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); Chronic pansinusitis; Pseudomonas aeruginosa infection; Burkholderia cepacia infection; Hemoptysis; 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); Cystic fibrosis with pulmonary manifestations (HCC); Severe protein-calorie malnutrition (HCC) Start: 09-05-2022 ambulatory Stephie Ramirez ACCOUNTING REPRESENTATIVE.BUGGY LADLE TENDER Work Phone: [facility] Start: 09-05-2022 Follow-up encounter Stephie Ramirez ACCOUNTING REPRESENTATIVE.BUGGY LADLE TENDER Work Phone: [facility] [place] [facility] Comment on above: Overdue follow up Start: 08-28-2022 Telephone encounter Sally castillo APRN.BUGGY LADLE TENDER Work Phone: Family Medicine [facility] Comment on above: Medication Problem Start: 08-26-2022 ambulatory She felix DO Work Phone: Pulmonary Medicine Comment on above: Covid 19 Cystic fibrosis with pulmonary manifestations (HCC) (Primary Dx) Start: 08-26-2022 E-mail encounter santo m caregiver Sally Schneider APRN.BUGGY LADLE TENDER Work Phone: [facility] Start: 08-09-2022 End: 08-09-2022 ambulatory Jordyn Johnson MD Work Phone: Pediatric Pulmonary Comment on above: Spirometry [employer] Stop Start: 08-09-2022 End: 08-09-2022 Patient encounter procedure [facility]eds 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 Start: 05-12-2022 End: 05-14-2022 Evaluation and management of inpatient MD NO PRIMARY CARE [facility] Start: 05-12-2022 End: 05-14-2022 Evaluation and management of inpatient Sabina Larios MD Work Phone: [facility] Comment on above: Intractable nausea a [...] Start: 03-20-2022 Chart abstracting Miguelina Murray RN lmonary Medicine Start: 03-05-2022 Telephone encounter Forrest Hale MD Work Phone: Pulmonary Medicine Comment on above: New CF Referral Start: 11-05-2018 Patient encounter STEPHIE RAMIREZ Facility:[facility] Start: 09-10-2018 End: 09-10-2018 Patient encounter STEPHIE RAMIREZ Facility:[facility] Start: 07-02-2018 Patient encounter STEPHIEKAROLINA RAMIREZ Facility:[facility] Start: 06-18-2018 End: 06-18-2018 Patient encounter STEPHIE RAMIREZ Facility:[facility] Start: 05-29-2018 End: 05-29-2018 Patient encounter STEPHIE RAMIREZ Facility:[facility] Start: 02-26-2018 Patient encounter STEPHIE RAMIREZ Facility:[facility] Procedures Date Procedure Procedure Detail Performing Clinician Start: 02-09-2025 Spmtry w/vc expiratory cristina w/wo mxml vol vntj Sally Schneider ACCOUNTING REPRESENTATIVE.BUGGY LADLE TENDER Work Phone: Start: 02-07-2025 Radiologic exam chest 2 views Farrukh Gomes MD Work Phone: Start: 02-07-2025 STREP A MOLECULAR (POC) Peggy Radha mei APRN.BUGGY LADLE TENDER Work Phone: Start: 01-05-2025 Spmtry w/vc expiratory cristina w/wo mxml vol vntj Jean Pierre Kilgore MD Work Phone: Start: 10-12-2024 Hemoglobin A1c/Hemoglobin.total in Blood Stephie Ramirez APRN.BUGGY LADLE TENDER Work Phone: Start: 10-06-2024 Spmtry w/vc expiratory cristina w/wo mxml vol vntj Sally Schneider ACCOUNTING REPRESENTATIVE.BUGGY LADLE TENDER Work Phone: Start: 09-09-2024 Spmtry w/vc expiratory cristina w/wo mxml vol vntj Zaida Santos RN Work Phone: Start: 08-19-2024 IR VASCULAR ACCESS TEAM PICC INSERTION RADIO Jean Pierre Kilgore MD Work Phone: Start: 08-18-2024 Spmtry w/vc expiratory cristina w/wo mxml vol vntj Jean Pierre Kilgore MD Work Phone: Start: 07-06-2024 Hemoglobin A1c/Hemoglobin.total in Blood Stephie Ramirez APRN.BUGGY LADLE TENDER Work Phone: Start: 05-07-2024 Mri abdomen w/o & w/contrast material Crystal Vallejo MD Work Phone: Start: 05-05-2024 Cul bact xcpt urine blood/stool aerobic isol Jean Pierre Kilgore MD Work Phone: Start: 05-05-2024 Spmtry w/vc expiratory cristina w/wo mxml vol vntj Nell Lozano [facility] Start: 03-09-2024 Hemoglobin A1c/Hemoglobin.total in Blood Stephie Ramirez APRN.BUGGY LADLE TENDER Work Phone: Start: 02-24-2024 BILIRUBIN TOTAL BLD Jasmyn Bailon MD Work Phone: Start: 02-24-2024 CBC + DIFF Jasmyn Bailon MD Work Phone: Start: 02-24-2024 Comprehensive metabolic 2000 panel - Serum or Plasma Jasmyn Bailon MD Work Phone: Start: 02-24-2024 VANCOMYCIN PRE DOSE Jasmyn Bailon MD Work Phone: Start: 02-17-2024 CBC + DIFF Jasmyn Bailon MD Work Phone: Start: 02-17-2024 Comprehensive metabolic 2000 panel - Serum or Plasma Jasmyn Bailon MD Work Phone: Start: 02-17-2024 VANCOMYCIN LEVEL Jasmyn Bailon MD Work Phone: Start: 07-02-2023 RESPIRATORY PANEL BY RAPID PCR (WITH COVID) Sally Schneider APRN.BUGGY LADLE TENDER Work Phone: Start: 06-04-2023 Cul bact xcpt urine blood/stool aerobic isol Jean Pierre Kilgore MD Work Phone: Start: 06-04-2023 Spmtry w/vc expiratory cristina w/wo mxml vol vntj She Pete DO Work Phone: Start: 06-02-2023 Radiologic exam abdomen 1 view Sally Schneider ACCOUNTING REPRESENTATIVE.BUGGY LADLE TENDER Work Phone: Start: 03-19-2023 RESPIRATORY PANEL BY RAPID PCR (WITH COVID) She Pete DO Work Phone: Start: 03-05-2023 Spmtry w/vc expiratory cristina w/wo mxml vol vntj Nell Lozano [facility] Start: 12-04-2022 INFLUENZA VACCINE QUADRIVALENT 6 MO - 64 YRS IM Jean Pierre Kilgore MD Work Phone: Start: 12-04-2022 PFIZER-BIONTECH COVID-19 BIVALENT BOOSTER VACCINE, AGE 12+ YR Jean Pierre Kilgore MD Work Phone: Start: 12-04-2022 Spmtry w/vc expiratory cristina w/wo mxml vol vntdominic Pete DO Work Phone: Start: 11-26-2022 BILIRUBIN TOTAL BLD [facility] Provider Start: 11-26-2022 CBC + DIFF [facility] Provider Start: 11-26-2022 Comprehensive metabolic 2000 panel - Serum or Plasma [facility] Provider Start: 11-26-2022 MAGNESIUM BLD [facility] Provider Start: 11-20-2022 Spmtry w/vc expiratory cristina w/wo mxml vol vntj Sally Bucur ACCOUNTING REPRESENTATIVE.BUGGY LADLE TENDER Work Phone: Start: 11-05-2022 Spmtry w/vc expiratory cristina w/wo mxml vol vntj Sally Bucur ACCOUNTING REPRESENTATIVE.BUGGY LADLE TENDER Work Phone: Start: 09-11-2022 Spmtry w/vc expiratory cristina w/wo mxml vol vntj She Tamara DO Work Phone: Start: 08-09-2022 Spmtry w/vc expiratory cristina w/wo mxml vol vntj Sally Bucur ACCOUNTING REPRESENTATIVE.BUGGY LADLE TENDER Work Phone: Start: 08-06-2022 CBC + DIFF [facility] Provider Start: 08-06-2022 VANCOMYCIN PRE DOSE [facility] Provider Start: 07-25-2022 Radiologic exam chest 2 views Forrest Hale MD Work Phone: Start: 2022 Culture fngi mold/yeast prsmptv oth xcpt blood She Pete DO Work Phone: Start: 05-14-2022 Glucose blood reagent strip Curtis Cisneros MD Work Phone: Start: 05-14-2022 Glucose blood reagent strip Curtis Cisneros MD Work Phone: Start: 05-14-2022 Glucose blood reagent strip Curtis Cisneros MD Work Phone: Start: 05-13-2022 Glucose blood reagent strip Curtis Cisneros MD Work Phone: Start: 05-13-2022 Glucose blood reagent strip Curtis Cisneros MD Work Phone: Start: 05-13-2022 Ecg routine ecg w/least 12 lds i&r only Karlene Chacon DO Work Phone (unformatted): [phone] Start: 05-13-2022 Glucose blood reagent strip Curtis Cisneros MD Work Phone: Start: 05-13-2022 Glucose blood reagent strip Cutris Cisneros MD Work Phone: Start: 05-12-2022 Glucose blood reagent strip Curtis Cisneros MD Work Phone: Start: 05-12-2022 Glucose blood reagent strip Curtis Cisneros MD Work Phone: Start: 05-12-2022 Radiologic exam chest single view Alonso Mitchell MD Work Phone: Start: 05-12-2022 Glucose blood reagent strip Curtis Cisneros MD Work Phone: Start: 05-12-2022 Glucose blood reagent strip Sabina Larios MD Work Phone: Start: 05-12-2022 CBC W Auto Differential panel - Blood Karlene Chacon DO Work Phone (unformatted): [phone] Start: 05-12-2022 End: 05-12-2022 Comprehensive metabolic panel Karlene Chacon DO Work Phone (unformatted): [phone] Start: 05-12-2022 Manual Differential panel - Blood Karlene Chacon DO Work Phone (unformatted): [phone] Start: 05-12-2022 Iadna respiratry probe & rev trnscr 11-24 target Karlene Chacon DO Work Phone (unformatted): [phone] Start: 05-12-2022 Radiologic exam abdomen 2 views Karlene Chacon DO Work Phone (unformatted): [phone] Plan of Treatment Date Care Activity Detail Author Start: 2058 PNEUMOCOCCAL (3 - PPSV23 if available, else PCV20) PNEUMOCOCCAL (3 - PPSV23 if available, else PCV20) [facility] Start: 2058 PNEUMOCOCCAL (3 - PPSV23 or PCV20) PNEUMOCOCCAL (3 - PPSV23 or PCV20) [facility] Start: 2058 Pneumococcal vaccination [facility] Start: 2043 Pneumococcal vaccination Pneumococcal Vaccine (3 of 3 - PCV20 or PCV21) [facility] Start: 05-12-2026 Chest X-Ray CF Chest X-Ray [facility] Start: 02-14-2026 Diabetic foot examination Diabetic Foot Exam [facility] Start: 02-09-2026 BP Controlled (<130/80) BP Controlled (<130/80) [facility] inic Start: 10-08-2025 Hemoglobin A1c measurement HbA1C [facility] Start: 08-23-2025 End: 08-23-2025 Patient encounter procedure 08/23/2025 2:00 PM EDT Office Visit [facility] [address] [place] [address] Stephie Ramirez, ACCOUNTING REPRESENTATIVE.BUGGY LADLE TENDER [address] [place], [place] [phone] dm [facility] Comment on above: dm Start: 08-01-2025 Influenza vaccination Influenza Vaccine (Season Ended) [facility] Start: 07-07-2025 Hemoglobin A1c measurement HbA1C [facility] Start: 05-09-2025 End: 05-09-2025 Patient encounter procedure 05/09/2025 1:30 PM EDT Office Visit [facility]ocr[facility] [address] [place] [address] Stephie Ramirez, ACCOUNTING REPRESENTATIVE.BUGGY LADLE TENDER [address] [place] [address] dm [facility] Comment on above: dm Start: 05-04-2025 End: 05-04-2025 ambulatory 05/04/2025 10:30 AM EDT Procedure [facility] [address] [place] [address] Cystic fibrosis (HCC) [E84.9] [facility] Comment on above: Cystic fibrosis (HCC) [E84.9] Start: 04-14-2025 End: 07-14-2025 Comprehensive metabolic 2000 panel - Serum or Plasma COMPREHENSIVE METABOLIC PANEL Lab Routine Cystic fibrosis with pulmonary manifestations (HCC) Expected: 04/14/2025 (Approximate), Expires: 07/14/2025 [facility] Work Phone: Comment on above: Expected: 04/14/2025 (Approximate), Expi res: 07/14/2025 Start: 04-11-2025 Hemoglobin A1c measurement HbA1C [facility] Start: 04-06-2025 End: 07-06-2025 25-hydroxyvitamin D3 [Mass/volume] in Serum or Plasma VITAMIN D 25 HYDROXY Lab Routine Cystic fibrosis (HCC) Expected: 04/06/2025 (Approximate), Expires: 07/06/2025 [facility] Comment on above: Expected: 04/06/2025 (Approximate), Expi res: 07/06/2025 Start: 04-06-2025 End: 07-06-2025 Alpha tocopherol [Mass/volume] in Serum or Plasma VITAMIN E/TOCOPHEROL Lab Routine Cystic fibrosis (HCC) Expected: 04/06/2025 (Approximate), Expires: 07/06/2025 [facility] Comment on above: Expected: 04/06/2025 (Approximate), Expi res: 07/06/2025 Start: 04-06-2025 End: 07-06-2025 C reactive protein [Mass/volume] in Serum or Plasma C-REACTIVE PROTEIN Lab Routine Cystic fibrosis (HCC) Expected: 04/06/2025 (Approximate), Expires: 07/06/2025 [facility] Comment on above: Expected: 04/06/2025 (Approximate), Expi res: 07/06/2025 Start: 04-06-2025 End: 07-06-2025 CBC W Auto Differential panel - Blood COMPLETE BLOOD COUNT AND DIFFERENTIAL Lab Routine Cystic fibrosis (HCC) Expected: 04/06/2025 (Approximate), Expires: 07/06/2025 [facility] Work Phone: Comment on above: Expected: 04/06/2025 (Approximate), Expi res: 07/06/2025 Start: 04-06-2025 End: 07-06-2025 Comprehensive metabolic 2000 panel - Serum or Plasma COMPREHENSIVE METABOLIC PANEL Lab Routine Cystic fibrosis (HCC) Expected: 04/06/2025 (Approximate), Expires: 07/06/2025 [facility] Comment on above: Expected: 04/06/2025 (Approximate), Expi res: 07/06/2025 Start: 04-06-2025 End: 07-06-2025 Gamma glutamyl transferase [Enzymatic activity/volume] in Serum or Plasma GGT Lab Routine Cystic fibrosis ([facility]) Expected: 04/06/2025 (Approximate), Expires: 07/06/2025 [facility] Comment on above: Expected: 04/06/2025 (Approximate), Expi res: 07/06/2025 Start: 04-06-2025 End: 07-06-2025 Hemoglobin A1c in Blood HEMOGLOBIN A1C Lab Routine Cystic fibrosis ([facility]) Expected: 04/06/2025 (Approximate), Expires: 07/06/2025 [facility] Comment on above: Expected: 04/06/2025 (Approximate), Expi res: 07/06/2025 Start: 04-06-2025 End: 07-06-2025 IgE [Units/volume] in Serum or Plasma IMMUNOGLOBULIN E Lab Routine Cystic fibrosis ([facility]) Expected: 04/06/2025 (Approximate), Expires: 07/06/2025 [facility] Comment on above: Expected: 04/06/2025 (Approximate), Expi res: 07/06/2025 Start: 04-06-2025 End: 07-06-2025 PT panel - Platelet poor plasma by Coagulation assay PROTHROMBIN TIME Lab Routine Cystic fibrosis ([facility]) Expected: 04/06/2025 (Approximate), Expires: 07/06/2025 [facility] Comment on above: Expected: 04/06/2025 (Approximate), Expi res: 07/06/2025 Start: 04-06-2025 End: 07-06-2025 Retinol [Mass/volume] in Serum or Plasma VITAMIN A/RETINOL Lab Routine Cystic fibrosis ([facility]) Expected: 04/06/2025 (Approximate), Expires: 07/06/2025 [facility] Comment on above: Expected: 04/06/2025 (Approximate), Expi res: 07/06/2025 Start: 04-06-2025 End: 07-06-2025 Testosterone [Mass/volume] in Serum or Plasma TESTOSTERONE, TOTAL BY IMMUNOASSAY (ADULT MALES, OR INDIVIDUALS ON TESTOSTERONE THERAPY) Lab Routine Cystic fibrosis (HCC) Expected: 04/06/2025 (Approximate), Expires: 07/06/2025 [facility] Comment on above: Expected: 04/06/2025 (Approximate), Expi res: 07/06/2025 Start: 04-06-2025 End: 04-06-2025 Patient encounter procedure [facility]monary Medicine Comment on above: 3 mo f/u Start: 04-06-2025 End: 04-06-2025 ambulatory 04/06/2025 10:45 AM EDT Procedure Pulmonary Medicine [address] [place] [address] CF Laptop Sj Pulmonary Medicine Comment on above: CF Laptop [place] Start: 03-17-2025 Hepatitis B surface antibody level LDL Cholesterol [facility] Start: 03-09-2025 BP Controlled (<130/80) BP Controlled (<130/80) [facility] in Start: 02-14-2025 End: 02-14-2025 Patient encounter procedure 02/14/2025 2:30 PM EDT [facility] [address] [place], [place] [phone] Stephie Ramirez, ACCOUNTING REPRESENTATIVE.BUGGY LADLE TENDER [address] [place], [place] [phone] dm [facility] Comment on above: dm Start: 02-14-2025 End: 05-16-2025 Comprehensive metabolic 2000 panel - Serum or Plasma COMPREHENSIVE METABOLIC PANEL Lab Routine Cystic fibrosis (HCC) Expected: 02/14/2025, Expires: 05/16/2025 [facility] Work Phone: Comment on above: Expected: 02/14/2025, Expires: Start: 02-09-2025 End: 05-11-2025 Comprehensive metabolic 2000 panel - Serum or Plasma [facility] Comment on above: Expected: 02/09/2025, Expires: Start: 02-09-2025 End: 05-11-2025 Respiratory pathogens DNA and RNA panel - Nasopharynx by PABLO with probe detection EXPANDED RESPIRATORY PATHOGEN PANEL BY PCR, ROUTINE Lab Routine Cystic fibrosis (HCC) Fever, unspecified fever cause Expected: 02/09/2025, Expires: 05/11/2025 [facility] Comment on above: Expected: 02/09/2025, Expires: Start: 02-09-2025 End: 02-09-2025 ambulatory 02/09/2025 10:30 AM EDT Procedure Pulmonary Medicine [address] [place] [address] Est CF Pulmonary Medicine Comment on above: Est CF Start: 02-09-2025 End: 02-09-2025 Patient encounter procedure 02/09/2025 10:30 AM EDT Office Visit Pulmonary Medicine [address] [place] [address] Sally Schneider APRN.BUGGY LADLE TENDER [address] [facility] [address] Est CF Pulmonary Medicine Comment on above: Est CF Start: 02-07-2025 End: 05-09-2025 Fungus identified in Unspecified specimen by Culture [facility] Work Phone: Comment on above: Expected: 02/07/2025, Expires: Start: 02-02-2025 Diabetic foot examination Diabetic Foot Exam [facility] Start: 01-06-2025 Hemoglobin A1c measurement HbA1C [facility] Start: 01-05-2025 End: 04-06-2025 Comprehensive metabolic 2000 panel - Serum or Plasma COMPREHENSIVE METABOLIC PANEL Lab Routine Cystic fibrosis with pulmonary manifestations (HCC) Expected: 01/05/2025, Expires: 04/06/2025 [facility] Work Phone: Comment on above: Expected: 01/05/2025, Expires: Start: 01-05-2025 End: 04-06-2025 Hemoglobin A1c in Blood HEMOGLOBIN A1C Lab Routine Cystic fibrosis with pulmonary manifestations (HCC) 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) Expected: 01/05/2025, Expires: 04/06/2025 [facility] Comment on above: Expected: 01/05/2025, Expires: Start: 01-05-2025 End: 01-05-2025 Patient encounter procedure 01/05/2025 1:45 PM EST Office Visit Pulmonary Medicine [address] [place], [place] [id number] Jean Pierre Kilgore MD [address] [facility] [address] [address] [place] [address] EST CF w/Sheers + pft in 3 months-[place] [facility] [place] Pulmonary Medicine Comment on above: EST CF w/Sheers + pft in 3 months-[place] [facility] 08-18-24 Start: 01-05-2025 End: 01-05-2025 ambulatory Pulmonary Medicine Comment on above: Cystic fibrosis with pulmonary manifesta tions (HCC) [E84.0] BC//Cystic fibrosis with pulmonary manifestations (HCC) [E84.0] Start: 12-08-2024 End: 12-08-2024 Patient encounter procedure 12/08/2024 1:00 PM EST Appointment [facility] [address] [place] [address] Cystic fibrosis (HCC) [E84.9] [facility] Comment on above: Cystic fibrosis (HCC) [E84.9] Start: 11-10-2024 End: 11-10-2024 Patient encounter procedure Pulmonary Medicine Comment on above: Cystic fibrosis with pulmonary manifesta tions (HCC) [E84.0] EST CF w/Sheers + pf t in 3 months-[place] 08-18-24 Start: 10-12-2024 End: 10-12-2024 Patient encounter procedure 10/12/2024 2:00 PM EST Office Visit [facility] Endocrinology [address] [place], [place] [phone] Stephie Ramirez, ACCOUNTING REPRESENTATIVE.BUGGY LADLE TENDER [address] [place], [place] [id number] type 1 diabetes [facility] Endocrinology Comment on above: type 1 diabetes Start: 10-06-2024 End: 01-05-2025 Comprehensive metabolic 2000 panel - Serum or Plasma [facility] Work Phone: Comment on above: Expected: 10/06/2024, Expires: Start: 10-06-2024 End: 10-06-2024 Patient encounter procedure 10/06/2024 1:00 PM EST Office Visit Pulmonary Medicine [address] [place] [id number] Sally Schneider APRN.BUGGY LADLE TENDER [address] [place] [address] Est-CF Pulmonary Medicine Comment on above: Est-CF Start: 10-06-2024 End: 10-06-2024 ambulatory 10/06/2024 12:30 PM EST Procedure Pulmonary Medicine [address] [place] [address] Cystic fibrosis Pulmonary Medicine Comment on above: Cystic fibrosis Start: 09-24-2024 BP Controlled (<130/80) BP Controlled (<130/80) [facility] Start: 09-16-2024 End: 12-16-2024 Basic metabolic 2000 panel - Serum or Plasma [facility] Comment on above: Expected: 09/16/2024, Expires: Start: 09-09-2024 End: 09-09-2024 Patient encounter procedure 09/09/2024 1:00 PM EDT Office Visit Pulmonary Medicine [address] [place] [address] Sally Schneider APRN.BUGGY LADLE TENDER [address] [place] [address] Est CF w/Bucur + Spirometry Baseline on Sep 09 at 1 PM ADD ON-CS stf msg 09-02-24 Pulmonary Medicine Comment on above: Est CF w/Bucur + Spirometry Baseline on Sep 09 at 1 PM ADD ON-CS stf msg 09-02-24 Start: 09-09-2024 End: 09-09-2024 ambulatory 09/09/2024 12:30 PM EDT Procedure Pulmonary Medicine [address] [address] 4, Pulm Fct Lab Main [address] [place] [address] Cystic fibrosis (HCC) [E84.9] [facility] Medicine Comment on above: Cystic fibrosis (HCC) [E84.9] Start: 09-08-2024 Hemoglobin A1c measurement HbA1C [facility] Start: 09-02-2024 End: 09-02-2024 Patient encounter procedure [facility] Comment on above: Cystic fibrosis (HCC) [E84.9] COMP 2022 L / Spine Frax: Sec osteo Prior VFA Start: 09-01-2024 End: 09-01-2024 Patient encounter procedure Pulmonary Medicine Comment on above: EST CF w/Sheers + pft on 09/01 at 1pm-[facility] ms 08-18-24 Start: 09-01-2024 End: 09-01-2024 ambulatory 09/01/2024 12:15 PM EDT Procedure Pulmonary Medicine [address] [address] 8, Pulm Fct Lab Main [address] [place] [address] Cystic fibrosis (HCC) [E84.9] [facility] Medicine Comment on above: Cystic fibrosis (HCC) [E84.9] Start: 08-27-2024 End: 09-03-2024 Basic metabolic 2000 panel - Serum or Plasma BASIC METABOLIC PANEL Lab Routine Hyperkalemia Cystic fibrosis (HCC) Expected: 08/27/2024, Expires: 09/03/2024 [facility] Work Phone: Comment on above: Expected: 08/27/2024, Expires: Start: 08-19-2024 End: 08-19-2024 Patient encounter procedure 08/19/2024 8:00 AM EDT Office Visit [facility] PICC TEAM [address] [facility] [address] [id number] CF Copat - schedule at [facility] PICC TEAM Comment on above: CF Copat - schedule at [place] Start: 08-18-2024 End: 08-18-2024 Patient encounter procedure 08/18/2024 1:45 PM EDT Office Visit Pulmonary Medicine [address] [place], [place] [phone] Jean Pierre Kilgore MD [address] [facility] [address] [place], [place] [phone] CF Pulmonary Medicine Comment on above: CF Start: 08-18-2024 End: 08-18-2024 ambulatory 08/18/2024 1:15 PM EDT Procedure Pulmonary Medicine [address] [place] [address] CF Pulmonary Medicine Comment on above: CF Start: 08-11-2024 3 comp foot exam completed DIABETIC FOOT EXAM [facility] Start: 08-11-2024 Diabetic foot examination Diabetic Foot Exam [facility] Start: 08-05-2024 Hemoglobin A1c measurement HbA1C [facility] Start: 08-01-2024 Covid-19 Vaccine ( season) Covid-19 Vaccine ( season) [facility] Start: 08-01-2024 Covid-19 Vaccine ( season) Covid-19 Vaccine () [facility] Start: 08-01-2024 Influenza vaccination [facility] Start: 07-27-2024 Hepatitis B screening URINE ALBUMIN:CREATININE RATIO [facility] Start: 07-19-2024 End: 07-19-2024 ambulatory 07/19/2024 2:30 PM EDT [facility] Gastroenterology [address] [address] Tia Lindo MD [address] [place] [address] Liver Disease Gastroenterology Comment on above: Liver Disease Start: 07-19-2024 End: 10-18-2024 Uanos-2-[id number] [Mass/volume] in Serum or Plasma ALPHA FETOPROTEIN Lab Routine Other cirrhosis of liver (HCC) Expected: 07/19/2024, Expires: 10/18/2024 [facility] Comment on above: Expected: 07/19/2024, Expires: Start: 07-19-2024 End: 10-18-2024 Cancer Ag 19-9 [Units/volume] in Serum or Plasma CA 19-9 Lab Routine Other cirrhosis of liver (HCC) Expected: 07/19/2024, Expires: 10/18/2024 [facility] Comment on above: Expected: 07/19/2024, Expires: Start: 07-19-2024 End: 10-18-2024 Carcinoembryonic Ag [Mass/volume] in Serum or Plasma CARCINOEMBRYONIC ANTIGEN Lab Routine Other cirrhosis of liver (HCC) Expected: 07/19/2024, Expires: 10/18/2024 [facility] Comment on above: Expected: 07/19/2024, Expires: Start: 07-19-2024 End: 10-18-2024 CBC panel - Blood by Automated count COMPLETE BLOOD COUNT Lab Routine Other cirrhosis of liver (HCC) Expected: 07/19/2024, Expires: 10/18/2024 [facility] Work Phone: Comment on above: Expected: 07/19/2024, Expires: Start: 07-19-2024 End: 10-18-2024 Comprehensive metabolic 2000 panel - Serum or Plasma COMPREHENSIVE METABOLIC PANEL Lab Routine Other cirrhosis of liver (HCC) Expected: 07/19/2024, Expires: 10/18/2024 [facility] Comment on above: Expected: 07/19/2024, Expires: Start: 07-19-2024 End: 10-18-2024 PT panel - Platelet poor plasma by Coagulation assay PROTHROMBIN TIME Lab Routine Other cirrhosis of liver (HCC) Expected: 07/19/2024, Expires: 10/18/2024 [facility] Comment on above: Expected: 07/19/2024, Expires: Start: 07-14-2024 End: 07-14-2024 Patient encounter procedure 07/14/2024 11:00 AM EDT Office Visit Gastroenterology [address] [address] Tia Lindo MD [address] [place] [address] CF-related liver disease Gastroenterology Comment on above: CF-related liver disease Start: 07-06-2024 End: 07-06-2024 Patient encounter procedure 07/06/2024 2:00 PM EDT Office Visit [facility] Endocr[facility]ology [address] [place], [place] [phone] Stephie Ramirez, ADALI.BUGGY LADLE TENDER [address] [place] [address] type 1 diabetes [facility] Comment on above: type 1 diabetes Start: 07-02-2024 BP CONTROLLED (<130/80) BP CONTROLLED (<130/80) [facility] Start: 06-04-2024 BP CONTROLLED (<130/80) BP CONTROLLED (<130/80) [facility] Start: 05-21-2024 Hemoglobin A1c measurement HbA1C [facility] Start: 05-19-2024 End: 08-18-2024 25-hydroxyvitamin D3 [Mass/volume] in Serum or Plasma VITAMIN D 25 HYDROXY Lab Routine Cystic fibrosis (HCC) 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) 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) Expected: 05/19/2024 (Approximate), Expires: 08/18/2024 [facility] Comment on above: Expected: 05/19/2024 (Approximate), Expi res: 08/18/2024 Start: 05-19-2024 End: 08-18-2024 Alpha tocopherol [Mass/volume] in Serum or Plasma VITAMIN E/TOCOPHEROL Lab Routine Cystic fibrosis (HCC) 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) 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) Expected: 05/19/2024 (Approximate), Expires: 08/18/2024 [facility] Comment on above: Expected: 05/19/2024 (Approximate), Expi res: 08/18/2024 Start: 05-19-2024 End: 08-18-2024 Retinol [Mass/volume] in Serum or Plasma VITAMIN A/RETINOL Lab Routine Cystic fibrosis (HCC) 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) 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) Expected: 05/19/2024 (Approximate), Expires: 08/18/2024 [facility] Work Phone: Comment on above: Expected: 05/19/2024 (Approximate), Expi res: 08/18/2024 Start: 05-19-2024 End: 08-18-2024 Zinc [Mass/volume] in Serum or Plasma ZINC BLD Lab Routine Cystic fibrosis (HCC) 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) 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) Expected: 05/19/2024 (Approximate), Expires: 08/18/2024 [facility] Comment on above: Expected: 05/19/2024 (Approximate), Expi res: 08/18/2024 Start: 05-07-2024 End: 05-07-2024 Patient encounter procedure 05/07/2024 1:40 PM EDT Appointment Radiology [address] [place] [address] Abnormal results of liver function studies [R94.5] Radiology Comment on above: Abnormal results of liver function studi es [R94.5] Start: 05-05-2024 End: 05-05-2024 Patient encounter procedure Pulmonary Medicine Comment on above: Cystic fibrosis with pulmonary manifesta tions (HCC) [E84.0] RT EDUCATION Start: 05-05-2024 End: 05-05-2024 ambulatory 05/05/2024 2:15 PM EDT Procedure Pulmonary Medicine [address] [place] [address] Cystic fibrosis with pulmonary manifestations (HCC) [E84.0] Pulmonary Medicine Comment on above: Cystic fibrosis with pulmonary manifesta tions (HCC) [E84.0] Start: 05-05-2024 End: 08-04-2024 Basic metabolic 2000 panel - Serum or Plasma BASIC METABOLIC PANEL Lab Routine Cystic fibrosis with pulmonary manifestations (HCC) Expected: 05/05/2024, Expires: 08/04/2024 [facility] Comment on above: Expected: 05/05/2024, Expires: Start: 05-05-2024 End: 08-04-2024 Hepatic function 2000 panel - Serum or Plasma HEPATIC FUNCTION PNL Lab Routine Cystic fibrosis with pulmonary manifestations (HCC) 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) Expected: 05/05/2024, Expires: 08/04/2024 [facility] Comment on above: Expected: 05/05/2024, Expires: Start: 04-07-2024 End: 04-07-2024 Patient encounter procedure 04/07/2024 1:30 PM EDT Office Visit Gastroenterology [address] [address] Tia Lindo MD [address] [place] [address] CF-related liver disease Gastroenterology Comment on above: CF-related liver disease Start: 02-27-2024 BP CONTROLLED (<130/80) BP CONTROLLED (<130/80) [facility] in Start: 02-25-2024 End: 11-30-2024 25-hydroxyvitamin D3 [Mass/volume] in Serum or Plasma VITAMIN D 25 HYDROXY Lab Routine Cystic fibrosis (HCC) 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 fibrosis with pulmonary manifestations (HCC) Vitamin D deficiency Expected: 02/25/2024 (Approximate), Expires: 11/30/2024 [facility] Work Phone: Comment on above: Expected: 02/25/2024 (Approximate), Expi res: 11/30/2024 Start: 02-25-2024 End: 11-30-2024 Alpha tocopherol [Mass/volume] in Serum or Plasma VITAMIN E/TOCOPHEROL Lab Routine Cystic fibrosis (HCC) 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 fibrosis with pulmonary manifestations (HCC) Vitamin D deficiency Expected: 02/25/2024 (Approximate), Expires: 11/30/2024 [facility] Work Phone: Comment on above: Expected: 02/25/2024 (Approximate), Expi res: 11/30/2024 Start: 02-25-2024 End: 11-30-2024 C reactive protein [Mass/volume] in Serum or Plasma C-REACTIVE PROTEIN (CRP) Lab Routine Cystic fibrosis (HCC) 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 fibrosis with pulmonary manifestations (HCC) Vitamin D deficiency Expected: 02/25/2024 (Approximate), Expires: 11/30/2024 [facility] Work Phone: Comment on above: Expected: 02/25/2024 (Approximate), Expi res: 11/30/2024 Start: 02-25-2024 End: 11-30-2024 CBC W Auto Differential panel - Blood CBC + DIFF Lab Routine Cystic fibrosis (HCC) 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 fibrosis with pulmonary manifestations (HCC) Vitamin D deficiency Expected: 02/25/2024 (Approximate), Expires: 11/30/2024 [facility] Work Phone: Comment on above: Expected: 02/25/2024 (Approximate), Expi res: 11/30/2024 Start: 02-25-2024 End: 11-30-2024 Comprehensive metabolic 2000 panel - Serum or Plasma COMP METABOLIC PANEL Lab Routine Cystic fibrosis (HCC) 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 fibrosis with pulmonary manifestations (HCC) Vitamin D deficiency Expected: 02/25/2024 (Approximate), Expires: 11/30/2024 [facility] Work Phone: Comment on above: Expected: 02/25/2024 (Approximate), Expi res: 11/30/2024 Start: 02-25-2024 End: 11-30-2024 Erythrocyte sedimentation rate SED RATE WESTERGREN Lab Routine Cystic fibrosis (HCC) 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 fibrosis with pulmonary manifestations (HCC) Vitamin D deficiency Expected: 02/25/2024 (Approximate), Expires: 11/30/2024 [facility] Work Phone: Comment on above: Expected: 02/25/2024 (Approximate), Expi res: 11/30/2024 Start: 02-25-2024 End: 11-30-2024 Gamma glutamyl transferase [Enzymatic activity/volume] in Serum or Plasma GGT BLD Lab Routine Cystic fibrosis (HCC) 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 fibrosis with pulmonary manifestations (HCC) Vitamin D deficiency Expected: 02/25/2024 (Approximate), Expires: 11/30/2024 [facility] Work Phone: Comment on above: Expected: 02/25/2024 (Approximate), Expi res: 11/30/2024 Start: 02-25-2024 End: 11-30-2024 IgE [Units/volume] in Serum or Plasma IGE BLD Lab Routine Cystic fibrosis (HCC) 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 fibrosis with pulmonary manifestations (HCC) Vitamin D deficiency Expected: 02/25/2024 (Approximate), Expires: 11/30/2024 [facility] Work Phone: Comment on above: Expected: 02/25/2024 (Approximate), Expi res: 11/30/2024 Start: 02-25-2024 End: 11-30-2024 Lipid 1996 panel - Serum or Plasma LIPID PANEL BASIC Lab Routine Cystic fibrosis (HCC) 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 fibrosis with pulmonary manifestations (HCC) Vitamin D deficiency Expected: 02/25/2024 (Approximate), Expires: 11/30/2024 [facility] Work Phone: Comment on above: Expected: 02/25/2024 (Approximate), Expi res: 11/30/2024 Start: 02-25-2024 End: 11-30-2024 Magnesium [Mass/volume] in Serum or Plasma MAGNESIUM BLD Lab Routine Cystic fibrosis (HCC) 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 fibrosis with pulmonary manifestations (HCC) Vitamin D deficiency Expected: 02/25/2024 (Approximate), Expires: 11/30/2024 [facility] Work Phone: Comment on above: Expected: 02/25/2024 (Approximate), Expi res: 11/30/2024 Start: 02-25-2024 End: 11-30-2024 PT panel - Platelet poor plasma by Coagulation assay PROTHROMBIN TIME/PT Lab Routine Cystic fibrosis (HCC) 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 fibrosis with pulmonary manifestations (HCC) Vitamin D deficiency Expected: 02/25/2024 (Approximate), Expires: 11/30/2024 [facility] Work Phone: Comment on above: Expected: 02/25/2024 (Approximate), Expi res: 11/30/2024 Start: 02-25-2024 End: 11-30-2024 Retinol [Mass/volume] in Serum or Plasma VITAMIN A/RETINOL Lab Routine Cystic fibrosis (HCC) 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 fibrosis with pulmonary manifestations (HCC) Vitamin D deficiency Expected: 02/25/2024 (Approximate), Expires: 11/30/2024 [facility] Work Phone: Comment on above: Expected: 02/25/2024 (Approximate), Expi res: 11/30/2024 Start: 02-18-2024 End: 05-19-2024 CREATININE BLD CREATININE BLD Lab Routine Infection Expected: 02/18/2024, Expires: 05/19/2024 [facility] Work Phone: Comment on above: Expected: 02/18/2024, Expires: Start: 02-18-2024 End: 05-19-2024 Vancomycin [Mass/volume] in Serum or Plasma --random VANCOMYCIN Lab Routine Infection Expected: 02/18/2024, Expires: 05/19/2024 [facility] Work Phone: Comment on above: Expected: 02/18/2024, Expires: 4 Start: 02-16-2024 End: 05-17-2024 CELIAC COMPREHENSIVE PANEL CELIAC COMPREHENSIVE PANEL Lab Routine 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) Expected: 02/16/2024, Expires: 05/17/2024 [facility] Work Phone: Comment on above: Expected: 02/16/2024, Expires: 4 Start: 01-25-2024 Dexa Scan CF Dexa Scan [facility] Start: 01-07-2024 End: 11-30-2024 25-hydroxyvitamin D3 [Mass/volume] in Serum or Plasma VITAMIN D 25 HYDROXY Lab Routine Cystic fibrosis (HCC) 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) 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) Dietary counseling and surveillance Vitamin D deficiency Expected: 01/07/2024 (Approximate), Expires: 11/30/2024 [facility] Work Phone: Comment on above: Expected: 01/07/2024 (Approximate), Expi res: 11/30/2024 Start: 01-07-2024 End: 11-30-2024 Alpha tocopherol [Mass/volume] in Serum or Plasma VITAMIN E/TOCOPHEROL Lab Routine Cystic fibrosis (HCC) 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) 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) Dietary counseling and surveillance Vitamin D deficiency Expected: 01/07/2024 (Approximate), Expires: 11/30/2024 [facility] Work Phone: Comment on above: Expected: 01/07/2024 (Approximate), Expi res: 11/30/2024 Start: 01-07-2024 End: 11-30-2024 C reactive protein [Mass/volume] in Serum or Plasma C-REACTIVE PROTEIN (CRP) Lab Routine Cystic fibrosis (HCC) 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) 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) Dietary counseling and surveillance Vitamin D deficiency Expected: 01/07/2024 (Approximate), Expires: 11/30/2024 [facility] Work Phone: Comment on above: Expected: 01/07/2024 (Approximate), Expi res: 11/30/2024 Start: 01-07-2024 End: 11-30-2024 CBC W Auto Differential panel - Blood CBC + DIFF Lab Routine Cystic fibrosis (HCC) 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) 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) Dietary counseling and surveillance Vitamin D deficiency Expected: 01/07/2024 (Approximate), Expires: 11/30/2024 [facility] Work Phone: Comment on above: Expected: 01/07/2024 (Approximate), Expi res: 11/30/2024 Start: 01-07-2024 End: 11-30-2024 Comprehensive metabolic 2000 panel - Serum or Plasma COMP METABOLIC PANEL Lab Routine Cystic fibrosis (HCC) 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) 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) Dietary counseling and surveillance Vitamin D deficiency Expected: 01/07/2024 (Approximate), Expires: 11/30/2024 [facility] Work Phone: Comment on above: Expected: 01/07/2024 (Approximate), Expi res: 11/30/2024 Start: 01-07-2024 End: 11-30-2024 Erythrocyte sedimentation rate SED RATE WESTERGREN Lab Routine Cystic fibrosis (HCC) 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) 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) Dietary counseling and surveillance Vitamin D deficiency Expected: 01/07/2024 (Approximate), Expires: 11/30/2024 [facility] Work Phone: Comment on above: Expected: 01/07/2024 (Approximate), Expi res: 11/30/2024 Start: 01-07-2024 End: 11-30-2024 Gamma glutamyl transferase [Enzymatic activity/volume] in Serum or Plasma GGT BLD Lab Routine Cystic fibrosis (HCC) 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) 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) Dietary counseling and surveillance Vitamin D deficiency Expected: 01/07/2024 (Approximate), Expires: 11/30/2024 [facility] Work Phone: Comment on above: Expected: 01/07/2024 (Approximate), Expi res: 11/30/2024 Start: 01-07-2024 End: 11-30-2024 Hemoglobin A1c in Blood HGB A1C Lab Routine Cystic fibrosis (HCC) 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) 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) Dietary counseling and surveillance Vitamin D deficiency Expected: 01/07/2024 (Approximate), Expires: 11/30/2024 [facility] Work Phone: Comment on above: Expected: 01/07/2024 (Approximate), Expi res: 11/30/2024 Start: 01-07-2024 End: 11-30-2024 IgE [Units/volume] in Serum or Plasma IGE BLD Lab Routine Cystic fibrosis (HCC) 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) 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) Dietary counseling and surveillance Vitamin D deficiency Expected: 01/07/2024 (Approximate), Expires: 11/30/2024 [facility] Work Phone: Comment on above: Expected: 01/07/2024 (Approximate), Expi res: 11/30/2024 Start: 01-07-2024 End: 11-30-2024 Lipid 1996 panel - Serum or Plasma LIPID PANEL BASIC Lab Routine Cystic fibrosis (HCC) 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) 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) Dietary counseling and surveillance Vitamin D deficiency Expected: 01/07/2024 (Approximate), Expires: 11/30/2024 [facility] Work Phone: Comment on above: Expected: 01/07/2024 (Approximate), Expi res: 11/30/2024 Start: 01-07-2024 End: 11-30-2024 Magnesium [Mass/volume] in Serum or Plasma MAGNESIUM BLD Lab Routine Cystic fibrosis (HCC) 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) 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) Dietary counseling and surveillance Vitamin D deficiency Expected: 01/07/2024 (Approximate), Expires: 11/30/2024 [facility] Work Phone: Comment on above: Expected: 01/07/2024 (Approximate), Expi res: 11/30/2024 Start: 01-07-2024 End: 11-30-2024 PT panel - Platelet poor plasma by Coagulation assay PROTHROMBIN TIME/PT Lab Routine Cystic fibrosis (HCC) 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) 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) Dietary counseling and surveillance Vitamin D deficiency Expected: 01/07/2024 (Approximate), Expires: 11/30/2024 [facility] Work Phone: Comment on above: Expected: 01/07/2024 (Approximate), Expi res: 11/30/2024 Start: 01-07-2024 End: 11-30-2024 Retinol [Mass/volume] in Serum or Plasma VITAMIN A/RETINOL Lab Routine Cystic fibrosis (HCC) 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) Diabetes mellitus related to CF (cystic fibrosis) ([facility]) Dietary counseling and surveillance Vitamin D deficiency Expected: 01/07/2024 (Approximate), Expires: 11/30/2024 [facility] Work Phone: Comment on above: Expected: 01/07/2024 (Approximate), Expi res: 11/30/2024 Start: 01-03-2024 Hemoglobin A1c measurement HbA1C [facility] Start: 01-03-2024 Hemoglobin A1c/Hemoglobin.total in Blood HBA1C [facility] Start: 12-19-2023 Glaucoma screening Dilated Retinal Exam [facility] Start: 12-19-2023 Hepatitis C antibody, confirmatory test DILATED RETINAL EXAM [facility] Start: 11-05-2023 3 comp foot exam completed DIABETIC FOOT EXAM [facility] Start: 09-07-2023 Hemoglobin A1c/Hemoglobin.total in Blood HBA1C [facility] Start: 08-21-2023 End: 10-21-2023 Comprehensive metabolic 2000 panel - Serum or Plasma COMP METABOLIC PANEL Lab Routine Cystic fibrosis ([facility]) Expected: 08/21/2023, Expires: 10/21/2023 [facility] Work Phone: Comment on above: Expected: 08/21/2023, Expires: 3 Start: 08-18-2023 End: 10-18-2023 Ferritin [Mass/volume] in Serum or Plasma [facility] Work Phone: Comment on above: Expected: 08/18/2023, Expires: 3 Start: 08-18-2023 End: 10-18-2023 Folate [Mass/volume] in Serum or Plasma [facility] Work Phone: Comment on above: Expected: 08/18/2023, Expires: 3 Start: 08-18-2023 End: 10-18-2023 Iron and Iron binding capacity panel - Serum or Plasma [facility] Work Phone: Comment on above: Expected: 08/18/2023, Expires: 3 Start: 08-18-2023 End: 10-18-2023 Methylmalonate [Moles/volume] in Serum or Plasma [facility] Work Phone: Comment on above: Expected: 08/18/2023, Expires: 3 Start: 08-18-2023 End: 10-18-2023 Transferrin receptor.soluble [Mass/volume] in Serum or Plasma [facility] Work Phone: Comment on above: Expected: 08/18/2023, Expires: 3 Start: 08-01-2023 Covid-19 Vaccine () Covid-19 Vaccine () [facility] Start: 08-01-2023 Influenza vaccination [facility] Start: 07-28-2023 Hepatitis B screening URINE ALBUMIN:CREATININE RATIO [facility] Start: 05-14-2023 CMP CF CMP CF [facility] Start: 05-13-2023 CBC CF CBC [facility] Start: 05-12-2023 Urinalysis CF Urinalysis [facility] Start: 04-07-2023 End: 06-07-2023 Thyrotropin [Units/volume] in Serum or Plasma TSH BLD Lab Routine Type 1 diabetes mellitus with hyperglycemia (HCC) Expected: 04/07/2023, Expires: 06/07/2023 [facility] Work Phone: Comment on above: Expected: 04/07/2023, Expires: 3 Start: 02-26-2023 End: 04-28-2023 Comprehensive metabolic 2000 panel - Serum or Plasma [facility] Work Phone: Comment on above: Expected: 02/26/2023, Expires: 3 Start: 02-15-2023 Hepatitis C antibody, confirmatory test DILATED RETINAL EXAM [facility] Start: 02-03-2023 Hemoglobin A1c/Hemoglobin.total in Blood HBA1C [facility] Start: 12-20-2022 End: 02-19-2023 Thyrotropin [Units/volume] in Serum or Plasma TSH BLD Lab Routine Type 1 diabetes mellitus with hyperglycemia (HCC) Expected: 12/20/2022, Expires: 02/19/2023 [facility] Work Phone: Comment on above: Expected: 12/20/2022, Expires: 3 Start: 12-06-2022 Vitamin A CF Vitamin A [facility] Start: 12-06-2022 Vitamin D 25 Hydroxy CF Vitamin D 25 Hydroxy CF [facility] Start: 12-06-2022 Vitamin E CF Vitamin E [facility] Start: 12-01-2022 DEPRESSION ASSESSMENT DEPRESSION ASSESSMENT [facility] Start: 11-29-2022 End: 01-29-2023 Comprehensive metabolic 2000 panel - Serum or Plasma COMP METABOLIC PANEL Lab Routine Cystic fibrosis with pulmonary manifestations (HCC) Expected: 11/29/2022, Expires: 01/29/2023 [facility] Work Phone: Comment on above: Expected: 11/29/2022, Expires: 3 Start: 11-20-2022 End: 01-20-2023 Phosphate [Mass/volume] in Serum or Plasma [facility] Work Phone: Comment on above: Expected: 11/20/2022, Expires: 3 Start: 11-18-2022 End: 01-18-2023 CBC W Auto Differential panel - Blood CBC + DIFF Lab Routine Cystic fibrosis with pulmonary manifestations (HCC) Expected: 11/18/2022, Expires: 01/18/2023 [facility] Work Phone: Comment on above: Expected: 11/18/2022, Expires: 3 Start: 11-18-2022 End: 01-18-2023 Comprehensive metabolic 2000 panel - Serum or Plasma COMP METABOLIC PANEL Lab Routine Cystic fibrosis with pulmonary manifestations (HCC) Expected: 11/18/2022, Expires: 01/18/2023 [facility] Work Phone: Comment on above: Expected: 11/18/2022, Expires: 3 Start: 11-18-2022 End: 01-18-2023 Hepatic function 2000 panel - Serum or Plasma HEPATIC FUNCTION PNL Lab Routine Cystic fibrosis with pulmonary manifestations (HCC) Expected: 11/18/2022, Expires: 01/18/2023 [facility] Work Phone: Comment on above: Expected: 11/18/2022, Expires: 3 Start: 11-18-2022 End: 01-18-2023 Magnesium [Mass/volume] in Serum or Plasma MAGNESIUM BLD Lab Routine Cystic fibrosis with pulmonary manifestations (HCC) Expected: 11/18/2022, Expires: 01/18/2023 [facility] Work Phone: Comment on above: Expected: 11/18/2022, Expires: 3 Start: 10-17-2022 Hemoglobin A1c/Hemoglobin.total in Blood HBA1C [facility] Start: 09-11-2022 End: 11-11-2022 Comprehensive metabolic 2000 panel - Serum or Plasma [facility] Work Phone: Comment on above: Expected: 09/11/2022, Expires: 2 Start: 09-10-2022 3 comp foot exam completed DIABETIC FOOT EXAM [facility] Start: 08-09-2022 End: 10-09-2022 Comprehensive metabolic 1999 panel - Serum or Plasma COMP METABOLIC PANEL Lab Routine Cystic fibrosis (HCC) Expected: 08/09/2022, Expires: 10/09/2022 [facility] Work Phone: Comment on above: Expected: 08/09/2022, Expires: 2 Start: 08-01-2022 FLU (Season Ended) FLU (Season Ended) [facility] Start: 08-01-2022 Influenza vaccination [facility] Start: 2022 End: 09-16-2022 Alpha tocopherol [Mass/volume] in Serum or Plasma [facility] Work Phone: Comment on above: Expected: 2022, Expires: 2 Start: 2022 End: 09-16-2022 Retinol [Mass/volume] in Serum or Plasma [facility] Work Phone: Comment on above: Expected: 2022, Expires: 2 Start: 06-23-2022 Hemoglobin A1c/Hemoglobin.total in Blood HBA1C [facility] Start: 05-29-2022 Tetanus Diphtheria and Pertussis Vaccines (7 - Td or Tdap) Tetanus Diphtheria and Pertussis Vaccines (7 - Td or Tdap) [facility] Start: 05-29-2022 Urine microalbumin profile [facility] Start: 03-19-2022 GGT CF GGT CF [facility] Start: 03-19-2022 HbA1c CF HbA1c [facility] Start: 03-19-2022 IgE CF IgE CF [facility] Start: 03-19-2022 Lipid Panel CF Lipid Panel [facility] Start: 03-19-2022 PT/INR CF PT/INR [facility] Start: 03-19-2022 Urine Microalbumin CF Urine Microalbumin CF [facility] Start: 02-12-2022 Hepatitis B screening URINE ALBUMIN:CREATININE RATIO [facility] Start: 02-12-2022 Hepatitis B surface antibody level LDL CHOLESTEROL [facility] Start: 01-30-2022 COVID-19 VACCINE (4 - Booster for Pfizer series) COVID-19 VACCINE (4 - Booster for Pfizer series) [facility] Start: 12-01-2021 DEPRESSION ASSESSMENT DEPRESSION ASSESSMENT [facility] Start: 11-03-2019 Testosterone Level CF Testosterone Level [facility] Start: 2012 HEPATITIS A (1 of 2 - Risk 2-dose series) HEPATITIS A (1 of 2 - Risk 2-dose series) [facility] Start: 2012 Hepatitis A Vaccine (1 of 2 - Risk 2-dose series) Hepatitis A Vaccine (1 of 2 - Risk 2-dose series) [facility] Start: 2011 ANNUAL PCP TEAM CHRONIC DISEASE VISIT ANNUAL PCP TEAM CHRONIC DISEASE VISIT [facility] Start: 2011 BP CONTROLLED (<130/80) BP CONTROLLED (<130/80) [facility] Start: 2011 HEPATITIS C SCREENING HEPATITIS C SCREENING [facility] Start: 2011 HIV SCREENING HIV SCREENING [facility] Start: 2011 HIV screening HIV Screening [facility] Start: 2009 MenB (1 of 2 - MenB 2-Dose Series) MenB (1 of 2 - MenB 2-Dose Series) [facility] Start: 2009 ONE PNEUMOVAX PRIOR TO AGE 65 ONE PNEUMOVAX PRIOR TO AGE 65 [facility] Start: 2005 Adult depression screening assessment DEPRESSION SCREENING [facility] Start: 07-11-1999 Varicella (1 of 2 - 2-dose childhood series) Varicella (1 of 2 - 2-dose childhood series) [facility] Start: 1994 HEPATITIS A (1 of 2 - Risk 2-dose series) HEPATITIS A (1 of 2 - Risk 2-dose series) [facility] AFB CULTURE & STAIN FOR PATIENTS WITH CYSTIC FIBROSIS AFB CULTURE & STAIN FOR PATIENTS WITH CYSTIC FIBROSIS Microbiology Routine Cystic fibrosis ([facility]) Ordered: 01/31/2025 [facility] Work Phone: Comment on above: Ordered: 01/31/2025 AFB CULTURE/STAIN CY STIC FIBROSIS AFB CULTURE/STAIN CYSTIC FIBROSIS Microbiology Routine Cystic fibrosis with pulmonary manifestations ([facility]) 2022 9:39 AM EDT [facility] Work Phone: AFB CULTURE/STAIN CY STIC FIBROSIS AFB CULTURE/STAIN CYSTIC FIBROSIS Microbiology Routine CF (cystic fibrosis) ([facility]) 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 Ordered: 09/11/2022 [facility] Work Phone: Comment on above: Ordered: 09/11/2022 AFB CULTURE/STAIN CY STIC FIBROSIS AFB CULTURE/STAIN CYSTIC FIBROSIS Microbiology Routine Cystic fibrosis ([facility]) Ordered: 02/18/2024 [facility] Work Phone: Comment on above: Ordered: 02/18/2024 Bacteria identified in Sputum by Cystic fibrosis respiratory culture CYSTIC FIBROSIS RESPIRATORY CULTURE Microbiology Routine Cystic fibrosis with pulmonary manifestations ([facility]) 2022 9:39 AM EDT [facility] Work Phone: Bacteria identified in Sputum by Cystic fibrosis respiratory culture CYSTIC FIBROSIS RESPIRATORY CULTURE Microbiology Routine CF (cystic fibrosis) ([facility]) 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 Ordered: 09/11/2022 [facility] Work Phone: Comment on above: Ordered: 09/11/2022 Bacteria identified in Sputum by Cystic fibrosis respiratory culture CYSTIC FIBROSIS RESPIRATORY CULTURE Microbiology Routine Cystic fibrosis with pulmonary manifestations (HCC) 03/05/2023 5:02 PM EDT [facility] Work Phone: Bacteria identified in Sputum by Cystic fibrosis respiratory culture CYSTIC FIBROSIS RESPIRATORY CULTURE Microbiology Routine Cystic fibrosis with pulmonary manifestations (HCC) 06/04/2023 4:27 PM EDT [facility] Work Phone: Bacteria identified in Sputum by Cystic fibrosis respiratory culture CYSTIC FIBROSIS RESPIRATORY CULTURE Microbiology Routine Cystic fibrosis ([facility]) Ordered: 02/18/2024 [facility] Work Phone: Comment on above: Ordered: 02/18/2024 Bacteria identified in Sputum by Cystic fibrosis respiratory culture CYSTIC FIBROSIS RESPIRATORY CULTURE Microbiology Routine Cystic fibrosis with pulmonary exacerbation (HCC) 08/18/2024 3:54 PM EDT [facility] Work Phone: Bacteria identified in Sputum by Cystic fibrosis respiratory culture BACTERIAL CULTURE, RESPIRATORY, CYSTIC FIBROSIS Microbiology Routine Cystic fibrosis ([facility]) Ordered: 01/31/2025 [facility] Comment on above: Ordered: 01/31/2025 Bacteria identified in Sputum by Cystic fibrosis respiratory culture BACTERIAL CULTURE, RESPIRATORY, CYSTIC FIBROSIS Microbiology Routine Cystic fibrosis ([facility]) Fever, unspecified fever cause 02/09/2025 11:03 AM T [facility] End: 11-29-2023 CBC W Auto Differential panel - Blood [facility] Work Phone: Comment on above: 99 Occurrences starting 11/29/2022 until 11/29/2023 2x per week for 6 Oc currences starting 11/29/2022 until 11/29/2023, 1 completed End: 08-18-2025 CBC W Auto Differential panel - Blood COMPLETE BLOOD COUNT AND DIFFERENTIAL Lab Routine Cystic fibrosis with pulmonary exacerbation (HCC) 2x per week for 10 Occurrences starting 08/18/2024 until 08/18/2025 [facility] Work Phone: Comment on above: 2x per week for 10 Occurrences starting 08/18/2024 until 08/18/2025 CBC W Ordered Manual Differential panel - Blood PATHOLOGIST INTERPRETATION WITH CBC AND DIFF Lab Routine 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 Routine times: 0600; 1100; 1400; 1900; 2200 for 1 Occurrences starting 05/12/2022 until 05/12/2022 [facility] Comment on above: For lab collect this frequency defaults to the next routine lab draw time. Routine times: 0600; 1100; 1400; 1900; 2200 for 1 Occurrences starting 05/12/2022 until 05/12/2022 End: 11-29-2023 Comprehensive metabolic 2000 panel - Serum or Plasma [facility] Work Phone: Comment on above: 99 Occurrences starting 11/29/2022 until 11/29/2023 2x per week for 6 Oc currences starting 11/29/2022 until 11/29/2023, 1 completed End: 08-18-2025 Comprehensive metabolic 2000 panel - Serum or Plasma COMPREHENSIVE METABOLIC PANEL Lab Routine Cystic fibrosis with pulmonary exacerbation (HCC) 2x per week for 10 Occurrences starting 08/18/2024 until 08/18/2025 [facility] Comment on above: 2x per week for 10 Occurrences starting 08/18/2024 until 08/18/2025 Continuous glucose monitoring analysis i&r GLUCOSE MONITOR, 72 HOUR, PHYS INTERP Procedures Routine Type 1 diabetes mellitus with hyperglycemia (HCC) Ordered: 12/22/2022 [facility] [facility] Comment on above: Ordered: 12/22/2022 Continuous glucose monitoring analysis i&r GLUCOSE MONITOR, 72 HOUR, PHYS INTERP Procedures Routine Type 1 diabetes mellitus with hyperglycemia (HCC) Ordered: 04/07/2023 [facility] Work Phone: Comment on above: Ordered: 04/07/2023 Continuous glucose monitoring analysis i&r GLUCOSE MONITOR, 72 HOUR, PHYS INTERP Procedures Routine Type 1 diabetes mellitus with hyperglycemia (HCC) Ordered: 08/11/2023 [facility] Work Phone: Comment on above: Ordered: 08/11/2023 Continuous glucose monitoring analysis i&r GLUCOSE MONITOR, 72 HOUR, PHYS INTERP Procedures Routine Type 1 diabetes mellitus with hyperglycemia (HCC) Ordered: 03/09/2024 [facility] Work Phone: Comment on above: Ordered: 03/09/2024 Continuous glucose monitoring analysis i&r GLUCOSE MONITOR, 72 HOUR, PHYS INTERP Procedures Routine Type 1 diabetes mellitus with hyperglycemia (HCC) Ordered: 07/06/2024 [facility] Comment on above: Ordered: 07/06/2024 Continuous glucose monitoring analysis i&r GLUCOSE MONITOR, 72 HOUR, PHYS INTERP Procedures Routine Type 1 diabetes mellitus with hyperglycemia (HCC) Ordered: 10/12/2024 [facility] Work Phone: Comment on above: Ordered: 10/12/2024 Continuous glucose monitoring analysis i&r GLUCOSE MONITOR, 72 HOUR, PHYS INTERP Procedures Routine Type 1 diabetes mellitus with hyperglycemia (HCC) Ordered: 02/14/2025 [facility] Work Phone: Comment on above: Ordered: 02/14/2025 COVID & INFLUENZA A/ B & RSV PCR, ROUTINE COVID & INFLUENZA A/B & RSV PCR, ROUTINE Microbiology Routine Fever, unspecified fever cause Acute cough Cystic fibrosis (HCC) Ordered: 01/31/2025 [facility] Comment on above: Ordered: 01/31/2025 DDI VIBRATION CONTRO LLED TRANSIENT ELASTOGRAPHY (VCTE) DDI VIBRATION CONTROLLED TRANSIENT ELASTOGRAPHY (VCTE) Procedures Routine Cystic fibrosis with liver disease (HCC) Ordered: 07/21/2022 [facility] Work Phone: Comment on above: Ordered: 07/21/2022 End: 08-20-2023 Dxa bone density study axial skeleton DXA-AXIAL SKELETON WITH VFA Radiology Routine Cystic fibrosis with pulmonary manifestations (HCC) 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) Chronic pansinusitis Low weight Encounter for screening for osteoporosis 1 Occurrences starting 07/21/2022 until 08/20/2023 [facility] Work Phone: Comment on above: 1 Occurrences starting 07/21/2022 until 08/20/2023 End: 08-30-2024 Dxa bone density study axial skeleton DXA-AXIAL SKELETON WITH VFA Radiology Routine Osteoporosis without current pathological fracture, unspecified osteoporosis type 1 Occurrences starting 08/01/2023 until 08/30/2024 [facility] Work Phone: Comment on above: 1 Occurrences starting 08/01/2023 until 08/30/2024 Dxa bone density rut dy axial skeleton DXA-AXIAL SKELETON WITH VFA Radiology Routine Osteoporosis without current pathological fracture, unspecified osteoporosis type 09/24/2023 9:35 AM EDT [facility] Work Phone: End: 06-04-2025 DXA Skeletal system.axial Views for bone density and vertebral fracture DXA-AXIAL SKELETON WITH VFA Radiology Routine Cystic fibrosis (HCC) 1 Occurrences starting 05/05/2024 until 06/04/2025 [facility] Work Phone: Comment on above: 1 Occurrences starting 05/05/2024 until 06/04/2025 End: 07-21-2023 Echocardiography ECHO Cardiology Routine Cystic fibrosis with pulmonary manifestations (HCC) 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) Chronic pansinusitis Low weight Encounter for screening for osteoporosis 1 Occurrences starting 07/21/2022 until 07/21/2023 [facility] Work Phone: Comment on above: 1 Occurrences starting 07/21/2022 until 07/21/2023 Hemoglobin A1c/Hemoglobin.total in Blood HEMOGLOBIN A1C (POC) Lab Routine Type 1 diabetes mellitus with hyperglycemia (HCC) Ordered: 03/09/2024 [facility] Work Phone: Comment on above: Ordered: 03/09/2024 Hemoglobin A1c/Hemoglobin.total in Blood HEMOGLOBIN A1C (POC) Lab Routine Type 1 diabetes mellitus with hyperglycemia (HCC) Ordered: 07/06/2024 [facility] Work Phone: Comment on above: Ordered: 07/06/2024 End: 11-29-2023 Magnesium [Mass/volume] in Serum or Plasma [facility] Work Phone: Comment on above: 99 Occurrences starting 11/29/2022 until 11/29/2023 2x per week for 6 Oc currences starting 11/29/2022 until 11/29/2023, 1 completed End: 08-18-2025 Magnesium [Mass/volume] in Serum or Plasma MAGNESIUM Lab Routine Cystic fibrosis with pulmonary exacerbation ([facility]) 2x per week for 10 Occurrences starting 08/18/2024 until 08/18/2025 [facility] Comment on above: 2x per week for 10 Occurrences starting 08/18/2024 until 08/18/2025 Microorganism identi fied in Unspecified specimen by Culture FUNGAL CULT + SMEAR Microbiology Routine Cystic fibrosis with pulmonary manifestations ([facility]) 2022 9:39 AM EDT [facility] Work Phone: Microorganism identi fied in Unspecified specimen by Culture FUNGAL CULT + SMEAR Microbiology Routine CF (cystic fibrosis) ([facility]) 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 Ordered: 09/11/2022 [facility] Work Phone: Comment on above: Ordered: 09/11/2022 Microorganism identi fied in Unspecified specimen by Culture FUNGAL CULT + SMEAR Microbiology Routine Cystic fibrosis ([facility]) Ordered: 02/18/2024 [facility] Work Phone: Comment on above: Ordered: 02/18/2024 Microorganism identi fied in Unspecified specimen by Culture FUNGAL CULTURE AND SMEAR (NON DERMAL) Microbiology Routine Cystic fibrosis ([facility]) Ordered: 01/31/2025 [facility] Comment on above: Ordered: 01/31/2025 End: 05-12-2022 Respiratory culture Respiratory culture Microbiology Routine For lab collect this frequency defaults to the next routine lab draw time. Routine times: 0600; 1100; 1400; 1900; 2200 for 1 Occurrences starting 05/12/2022 until 05/12/2022 [facility] Comment on above: For lab collect this frequency defaults to the next routine lab draw time. 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) 1 Occurrences starting 07/21/2022 until 08/20/2023 [facility] Work Phone: Comment on above: 1 Occurrences starting 07/21/2022 until 08/20/2023 SPIROMETRY BASELINE ONLY SPIROME TRY BASELINE ONLY PFT Routine Cystic fibrosis (HCC) 08/09/2022 10:00 AM EDT [facility] Work Phone: SPIROMETRY BASELINE ONLY SPIROME TRY BASELINE ONLY PFT Routine Cystic fibrosis with pulmonary manifestations (HCC) 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) 09/11/2022 8:38 AM EDT [facility] [employer] Work Phone: End: 09-27-2023 SPIROMETRY BASELINE ONLY SPIROMETRY BASELINE ONLY PFT Routine CF (cystic fibrosis) (HCC) 1 Occurrences starting 08/28/2022 until 09/27/2023 [facility] Work Phone: Comment on above: 1 Occurrences starting 08/28/2022 until 09/27/2023 SPIROMETRY BASELINE ONLY SPIROME TRY BASELINE ONLY PFT Routine Cystic fibrosis (HCC) 11/05/2022 11:28 AM [facility] [employer] Work Phone: End: 12-11-2023 SPIROMETRY BASELINE ONLY SPIROMETRY BASELINE ONLY PFT Routine Cystic fibrosis (HCC) 1 Occurrences starting 11/11/2022 until 12/11/2023 [facility] Work Phone: Comment on above: 1 Occurrences starting 11/11/2022 until 12/11/2023 End: 12-20-2023 SPIROMETRY BASELINE ONLY SPIROMETRY BASELINE ONLY PFT Routine Cystic fibrosis with pulmonary manifestations (HCC) Cystic fibrosis with pulmonary exacerbation (HCC) 1 Occurrences starting 11/20/2022 until 12/20/2023 [facility] Work Phone: Comment on above: 1 Occurrences starting 11/20/2022 until 12/20/2023 SPIROMETRY BASELINE ONLY SPIROME TRY BASELINE ONLY PFT Routine CF (cystic fibrosis) (HCC) 12/04/2022 3:26 PM EST [facility] Work Phone: End: 04-01-2024 SPIROMETRY BASELINE ONLY SPIROMETRY BASELINE ONLY PFT Routine Cystic fibrosis with pulmonary manifestations (HCC) 1 Occurrences starting 03/03/2023 until 04/01/2024 [facility] Work Phone: Comment on above: 1 Occurrences starting 03/03/2023 until 04/01/2024 End: 04-08-2024 SPIROMETRY BASELINE ONLY SPIROMETRY BASELINE ONLY PFT Routine Cystic fibrosis (HCC) 1 Occurrences starting 03/10/2023 until 04/08/2024 [facility] Work Phone: Comment on above: 1 Occurrences starting 03/10/2023 until 04/08/2024 End: 04-17-2024 SPIROMETRY BASELINE ONLY SPIROMETRY BASELINE ONLY PFT Routine Cystic fibrosis (HCC) 1 Occurrences starting 03/19/2023 until 04/17/2024 [facility] Work Phone: Comment on above: 1 Occurrences starting 03/19/2023 until 04/17/2024 SPIROMETRY BASELINE ONLY SPIROME TRY BASELINE ONLY PFT Routine Cystic fibrosis (HCC) 06/04/2023 3:30 PM EDT [facility] Work Phone: End: 07-03-2024 SPIROMETRY BASELINE ONLY SPIROMETRY BASELINE ONLY PFT Routine Cystic fibrosis with pulmonary manifestations (HCC) 1 Occurrences starting 06/04/2023 until 07/03/2024 [facility] Work Phone: Comment on above: 1 Occurrences starting 06/04/2023 until 07/03/2024 End: 10-23-2024 SPIROMETRY BASELINE ONLY SPIROMETRY BASELINE ONLY PFT Routine Cystic fibrosis with pulmonary manifestations (HCC) 1 Occurrences starting 09/24/2023 until 10/23/2024 [facility] Work Phone: Comment on above: 1 Occurrences starting 09/24/2023 until 10/23/2024 SPIROMETRY BASELINE ONLY SPIROME TRY BASELINE ONLY PFT Routine Cystic fibrosis with pulmonary manifestations (HCC) 05/05/2024 2:52 PM EDT [facility] Work Phone: End: 06-04-2025 SPIROMETRY BASELINE ONLY Terry Gayle marinelli Comment on above: 1 Occurrences starting 05/05/2024 until 06/04/2025 SPIROMETRY BASELINE ONLY SPIROME TRY BASELINE ONLY PFT Routine Cystic fibrosis with pulmonary manifestations (HCC) 08/18/2024 1:10 PM EDT [facility] Work Phone: End: 10-02-2025 SPIROMETRY BASELINE ONLY SPIROMETRY BASELINE ONLY PFT Routine Cystic fibrosis (HCC) 1 Occurrences starting 09/02/2024 until 10/02/2025 [facility] Work Phone: Comment on above: 1 Occurrences starting 09/02/2024 until 10/02/2025 End: 10-09-2025 SPIROMETRY BASELINE ONLY SPIROMETRY BASELINE ONLY PFT Routine Cystic fibrosis ([facility]) 1 Occurrences starting 09/09/2024 until 10/09/2025 [facility] Work Phone: Comment on above: 1 Occurrences starting 09/09/2024 until 10/09/2025 SPIROMETRY BASELINE ONLY SPIROME TRY BASELINE ONLY PFT Routine Cystic fibrosis (HCC) 10/06/2024 12:34 PM EST [facility] Work Phone: End: 11-05-2025 SPIROMETRY BASELINE ONLY SPIROMETRY BASELINE ONLY PFT Routine Cystic fibrosis (HCC) 1 Occurrences starting 10/06/2024 until 11/05/2025 [facility] Comment on above: 1 Occurrences starting 10/06/2024 until 11/05/2025 SPIROMETRY BASELINE ONLY SPIROME TRY BASELINE ONLY PFT Routine Cystic fibrosis with pulmonary manifestations (HCC) 01/05/2025 1:04 PM EST [facility] Work Phone: SPIROMETRY BASELINE ONLY SPIROME TRY BASELINE ONLY PFT Routine Cystic fibrosis (HCC) 02/09/2025 10:35 AM EDT [facility] Work Phone: End: 03-11-2026 SPIROMETRY BASELINE ONLY SPIROMETRY BASELINE ONLY PFT Routine Cystic fibrosis (HCC) 1 Occurrences starting 02/09/2025 until 03/11/2026 [facility] Work Phone: Comment on above: 1 Occurrences starting 02/09/2025 until 03/11/2026 End: 05-26-2026 SPIROMETRY BASELINE ONLY SPIROMETRY BASELINE ONLY PFT Routine Cystic fibrosis (HCC) 1 Occurrences starting 04/26/2025 until 05/26/2026 [facility] Work Phone: Comment on above: 1 Occurrences starting 04/26/2025 until 05/26/2026 End: 05-12-2022 Spirometry- on admission Spirometry- on admission PFT Routine One Time for 1 Occurrences starting 05/12/2022 until 05/12/2022 [facility] Work Phone: Comment on above: One Time [...] osteoporosis 1 Occurrences starting 07/21/2022 until 08/20/2023 [facility] Work Phone: Comment on above: 1 Occurrences starting 07/21/2022 until 08/20/2023 End: 11-29-2023 Vancomycin [Mass/volume] in Serum or Plasma --random VANCOMYCIN Lab Routine Cystic fibrosis with pulmonary manifestations (HCC) 2x per week for 6 Occurrences starting 11/29/2022 until 11/29/2023, 1 completed [facility] Work Phone: Comment on above: 2x per week for 6 Occurrences starting 1 until 11/29/2023, 1 completed End: 06-17-2024 XR ABDOMEN 1V SUPINE XR ABDOMEN 1V SUPINE Radiology Routine Cystic fibrosis (HCC) 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) 1 Occurrences starting 05/19/2023 until 06/17/2024 [facility] Work Phone: Comment on above: 1 Occurrences starting 05/19/2023 until 06/17/2024 XR Chest PA and Lateral XR CHEST 2V FRONTAL/LAT Radiology Routine Cystic fibrosis with pulmonary manifestations (HCC) 02/01/2025 11:44 AM EST [facility] Work Phone: [facility] Immunizations Immunization Date Immunization Notes Care Provider Chester aceves 12-04-2022 COVID-19 booster vaccine, age 12+ yr, bivalent (PFIZER-BIONTECH) [place] Work Phone: [facility] 12-04-2022 influenza, injectabl e, quadrivalent, contains preservative [place] Work Phone: [facility] 12-04-2022 influenza virus vacc ine, unspecified formulation Cheyanne Kraus [facility] 12-05-2021 PFIZER (purple cap) COVID-19, mRNA, LNP-S, 30mcg/0.3mL dose Sabina Larios MD Work Phone: [facility] Work Phone: 01-21-2021 PFIZER (purple cap) COVID-19, mRNA, LNP-S, 30mcg/0.3mL dose Sabina Larios MD Work Phone: [facility] 12-24-2020 PFIZER (purple cap) COVID-19, mRNA, LNP-S, 30mcg/0.3mL dose Sabina Larios MD Work Phone: [facility] 10-11-2019 influenza, injectabl e, quadrivalent, preservative free Miguelina Murray RN [facility] 07-28-2019 pneumococcal polysaccharide vaccine, 23 valent Miguelina Murray RN [facility] 05-26-2019 pneumococcal conjuga te vaccine, 13 valent Miguelina Murray RN [facility] 11-05-2018 influenza virus vacc ine, unspecified formulation Sabina Larios MD Work Phone: [facility] 11-05-2018 influenza, injectabl e, quadrivalent, contains preservative Miguelina Murray RN [facility] 11-05-2018 influenza, seasonal, injectable Miguelina Murray RN [facility] 09-02-2016 influenza, injectabl e, quadrivalent, preservative free Miguelina Murray [facility] 09-13-2013 Influenza Vaccine 0. 5 mL >= 3 Yr Trivalent Sabina Lariso MD Work Phone: [facility] 09-13-2013 influenza, seasonal, injectable Miguelina Murray RN [facility] 05-29-2012 tetanus toxoid, redu juve diphtheria toxoid, and acellular pertussis vaccine, adsorbed Forrest Hale MD Work Phone: [facility] 05-27-2012 meningococcal polysaccharide (groups A, C, Y and W-135) diphtheria toxoid conjugate vaccine (MCV4P) Miguelina Murray RN [facility] 05-27-2012 Meningococcal, MCV4, unspecified conjugate formulation(groups A, C, Y and W-135) Forrest Hale MD Work Phone: [facility] 10-23-2011 influenza virus vacc ine, split virus (incl. purified surface antigen) Sabina Larois MD Work Phone: [facility] 10-23-2011 influenza, seasonal, injectable Miguelina Murray RN [facility] 10-23-2011 pneumococcal polysaccharide vaccine, 23 valent Miguelina Murray RN [facility] 10-03-2010 influenza virus vacc ine, whole virus Mgiuelina Murray RN [facility] 10-19-2009 novel influenza-H1N1 -09, preservative-free, injectable Miguelina Murray RN [facility] 01-08-2006 pneumococcal conjuga te vaccine, 7 valent Miguelina Murray RN [facility] 07-18-1999 diphtheria, tetanus toxoids and pertussis vaccine Forrest Hale MD Work Phone: [facility] Work Phone: 06-13-1999 measles, mumps and rubella virus vaccine Forrest Hale MD Work Phone: [facility] Work Phone: 07-16-1995 diphtheria, tetanus toxoids and pertussis vaccine Miguelina Murray RN [facility] 07-16-1995 haemophilus influenz ae type b vaccine, PRP-T conjugate Miguelina Murray RN [facility] 02-13-1995 diphtheria, tetanus toxoids and pertussis vaccine Forrest Hale MD Work Phone: [facility] Work Phone: 02-13-1995 haemophilus influenz ae type b vaccine, HbOC conjugate Forrest Hale MD Work Phone: [facility] Work Phone: 02-13-1995 haemophilus influenz ae type b vaccine, PRP-T conjugate Saibna Larios MD Work Phone: [facility] 02-13-1995 measles, mumps and rubella virus vaccine Forrest Hale MD Work Phone: [facility] Work Phone: 02-13-1995 poliovirus vaccine, inactivated Forrest Hale MD Work Phone: [facility] Work Phone: 02-13-1995 trivalent poliovirus vaccine, live, oral Sabina Larios MD Work Phone: [facility] 05-20-1994 diphtheria, tetanus toxoids and pertussis vaccine Forrest Hale MD Work Phone: [facility] Work Phone: 05-20-1994 haemophilus influenz ae type b vaccine, HbOC conjugate Forrest Hale MD Work Phone: [facility] Work Phone: 05-20-1994 haemophilus influenz ae type b vaccine, PRP-T conjugate Sabina Larios MD Work Phone: [facility] 05-20-1994 hepatitis B vaccine, adult dosage Sabina Larios MD Work Phone: [facility] 05-20-1994 hepatitis B vaccine, pediatric or pediatric/adolescent dosage Forrest Hale MD Work Phone: [facility] Work Phone: 05-20-1994 poliovirus vaccine, inactivated Forrest Hale MD Work Phone: [facility] Work Phone: 05-20-1994 trivalent poliovirus vaccine, live, oral Sabina Larios MD Work Phone: [facility] 01-11-1994 diphtheria and tetan us toxoids, adsorbed for pediatric use Sabina Larios MD Work Phone: [facility] 01-11-1994 diphtheria, tetanus toxoids and pertussis vaccine Forrest Hale MD Work Phone: [facility] Work Phone: 01-11-1994 haemophilus influenz ae type b vaccine, HbOC conjugate Forrest Hale MD Work Phone: [facility] Work Phone: 01-11-1994 haemophilus influenz ae type b vaccine, PRP-T conjugate Sabina Larios MD Work Phone: [facility] 01-11-1994 poliovirus vaccine, inactivated Forrest Hale MD Work Phone: [facility] Work Phone: 01-11-1994 trivalent poliovirus vaccine, live, oral Sabina Larios MD Work Phone: [facility] 1993 diphtheria and tetan us toxoids, adsorbed for pediatric use Sabina Larios MD Work Phone: [facility] 1993 diphtheria, tetanus toxoids and pertussis vaccine Forrest Hale MD Work Phone: [facility] Work Phone: 1993 haemophilus influenz ae type b vaccine, HbOC conjugate Forrest Hale MD Work Phone: [facility] Work Phone: 1993 haemophilus influenz ae type b vaccine, PRP-T conjugate Sabina Larios MD Work Phone: [facility] 1993 hepatitis B vaccine, adult dosage Sabina Larios MD Work Phone: [facility] 1993 hepatitis B vaccine, pediatric or pediatric/adolescent dosage Forrest Hale MD Work Phone: [facility] Work Phone: 1993 poliovirus vaccine, inactivated Forrest Hale MD Work Phone: [facility] Work Phone: 1993 trivalent poliovirus vaccine, live, oral Sabina Larios MD Work Phone: [facility] 1993 hepatitis B vaccine, adult dosage Sabina Larios MD Work Phone: [facility] 1993 hepatitis B vaccine, pediatric or pediatric/adolescent dosage Forrest Hale MD Work Phone: [facility] Work Phone: Payers Date Payer Category Payer Self-pay [id number] 2019 Medicaid [facility] [id number] 2019-Present [phone] [address] [place] [address] Medicaid [id number] 2018 Medicaid [id number] 2018 Medicaid [id number] 2018 Unknown [id number] 2017 Unknown [id number] 1993 Unknown [id number] 1993 Unknown [id number] 1993 Unknown [id number] 1993 Unknown [id number] [id number] 1993 Unknown [id number] 1993 Unknown [id number] 1993 Unknown [id number] 1993 Unknown [id number] Unknown [id number] Unknown [facility] [id number] Unknown [id number] Unknown [id number] Unknown [id number] Unknown [id number] Unknown [id number] Unknown [id number] Unknown [id number] Unknown [id number] Unknown [id number] Unknown [id number] Unknown [id number] Social History Date Type Detail Facility Start: 12-06-2021 End: 2022 Tobacco smoking status NHIS Never smoked tobacco [facility] Start: 12-24-2021 End: 02-14-2025 Alcohol intake Current non-drinker of alcohol (finding) [facility] Start: 1995 Sex Assigned At Male [facility] Start: 03-09-2022 End: 08-06-2022 Exposure to SARS-CoV-2 (event) Unable to assess [facility] Work Phone: Start: 12-06-2021 End: 04-07-2023 Cigarette pack-years [facility] Work Phone: Start: 12-06-2021 End: 2022 Tobacco use and exposure Smokeless tobacco non-user [facility] Start: 05-12-2022 Alcohol intake Current drinke r of alcohol (finding) [facility] Start: 03-12-2019 History SDOH Alcohol Comment drinks one beer a night [facility] Start: 12-06-2021 Tobacco Comment No ETS exposure. [facility] on [facility] Start: 1995 Sex Assigned At Not on file A [facility] Start: 05-02-2022 End: 05-12-2022 Exposure to SARS-CoV-2 (event) Yes [facility] Start: 07-07-2022 End: 09-11-2022 Exposure to SARS-CoV-2 (event) Not sure [facility] Start: 07-29-2022 End: 03-10-2023 History SDOH Financial 5 [facility] Start: 07-29-2022 End: 03-10-2023 History SDOH Food Worry 1 [facility] Start: 07-29-2022 End: 03-10-2023 History SDOH Transport Med 2 [facility] Start: 07-06-2020 End: 07-06-2020 Tobacco smoking status NHIS Unknown if ever smoked [facility] Start: 07-04-2020 Heavy [facility] Start: 07-04-2020 None [facility] Start: 07-04-2020 With Family [facility] Start: 07-06-2020 Vapor [facility] Start: 04-07-2023 End: 06-04-2023 Tobacco use panel [facility] Work Phone: How hard is it for y ou to pay for the very basics like food, housing, medical care, and heating Not hard at all [facility] Work Phone: (I/We) worried rosette er (my/our) food would run out before (I/we) got money to buy more. Never true [facility] Work Phone: In the past 12 month s, was there a time when you were not able to pay the mortgage or rent on time? No [facility] Work Phone: Start: 09-08-2020 Gender identity Identifies as male gender (finding) [facility] Start: 09-08-2020 Sexual orientation Heterosexual (thao roberts) [facility] How hard is it for y ou to pay for the very basics like food, housing, medical care, and heating Somewhat hard [facility] Work Phone: Medical Equipment Procedure Code Equipment Code Equipment Original Text Equipment Identifier Dates [id number], [id number], [id number], [id number], [id number], [id number], [id number], [id number] Start: 09-10-2021 End: 02-14-2025 Comment on above: 5x/day 3x/day Use as instructed 3x /day Functional Status Date Assessment Result Facility 02-16-2024 Are you deaf, or do you have serious difficulty hearing No 02/16/2024 2:23 PM EDT Crystal Camargo, OLEKSANDR No [facility] 02-16-2024 Are you blind, or do you have serious difficulty seeing, even when wearing glasses No 02/16/2024 2:23 PM EDT Crystal Camargo, OLEKSANDR No [facility] 02-16-2024 Do you have serious difficulty walking or climbing stairs No 02/16/2024 2:23 PM EDT Crystal Camargo, OLEKSANDR No [facility] 02-16-2024 Do you have difficul ty dressing or bathing No 02/16/2024 2:23 PM EDT Crystal Camargo, OLEKSANDR No [facility] 02-16-2024 Because of a physica l, mental, or emotional condition, do you have difficulty doing errands alone such as visiting a physician's office or shopping No 02/16/2024 2:23 PM EDT Crystal Camargo, OLEKSANDR No [facility] Mental Status Date Assessment Result Facility 02-16-2024 Because of a physica l, mental, or emotional condition, do you have serious difficulty concentrating, remembering, or making decisions No 02/16/2024 2:23 PM EDT Crystal Camargo, OLEKSANDR No [facility] Clinical Notes 03-05-2022 to 04-08-2025 Telephone Encounter - Silke Amado - 04/08/2025 8:12 AM EDTTelephone Encounter - Silke Amado - 04/08/2025 8:12 AM EDTTelephone Encounter - Mariela Cazares - 04/06/2025 12:19 PM EDT Note Date & Type Note Facility 04-08-2025 Telephone encounter Note Patient electronically sent a request for the following prescription(s) Date of Last Visit: 02/09/2025 Recommended Follow Up: n/a Date of Follow-Up: n/a Requested Prescriptions Pending Prescriptions Disp Refills doxycycline (VIBRA-TABS) 100 mg tablet 28 tablet 0 Sig: Take 1 tablet by mouth two times a day. Silke Amado [facility] 04-08-2025 Miscellaneous Notes Patient electronically sent a request for the following prescription(s) Date of Last Visit: 02/09/2025 Recommended Follow Up: n/a Date of Follow-Up: n/a Requested Prescriptions Pending Prescriptions Disp Refills doxycycline (VIBRA-TABS) 100 mg tablet 28 tablet 0 Sig: Take 1 tablet by mouth two times a day. Silke Amado documented in this encounter [facility] 04-06-2025 Telephone encounter Note Summary: Complex Medical Help Program Received a fax requesting providers signature for a complex Medical Help program for patient. Printed and place in folder near Admin desk. Once signed and completed it will be fax to the number provided. [facility] 04-06-2025 Miscellaneous Notes Summary: Complex Medical Help Program Received a fax requesting providers signature for a complex Medical Help program for patient. Printed and place in folder near Admin desk. Once signed and completed it will be fax to the number provided. documented in this encounter [facility] 04-04-2025 History of Presen t illness Narrative Images from the original note were not included. CF Pre-Clinic Checklist PRE-TRANSPLANT Last CF clinic visit date: 02/09/25 with Sally Microbiology: b. 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 (01/01/1994 - in [...] 12 months: -Home IV abx: 08/19/24 - 09/15/24 -->IV Meropenem and IV Vancomycin -Hospital Admit: 02/03/24 - 02/16/24 for CF Exacerbation and Upper GIB -> treated with IV Meropenem, Minocycline and Vancomycin while inpatient -> discharged on Home IV abx IV Meropenem and IV Vancomycin through 02/23/24 -Hospital Admit: 07/02/23-07/29/23 treated with Vancomycin through 07/06, Minocycline through 07/22, and Meropenum through 07/24 (not discharged home on any IV abx) -Hospital Admit: 03/07/23-03/11/23 -> discharged on Home IV abx Vanc and Larisa through 04/01/23 FEV1%: 22% on 02/09/25 FEV1%trend: 23% on 10/06/24; 22% on 09/15/24; 24% on 08/18/24 ; 30% on 05/05/24 ; 27% on 02/25/24; 27% on 02/12/24 ; 29% on 09/24/23 ; 33% on 09/24/23; 36% on 07/24/23 ; 23% on 07/17/23 ; 23% on 07/10/23 ; 23% on 07/02/23 BMI: 16.21kg/m2 BMI Trend: decreased with exacerbation RD ANNUAL VISIT Needed: Needs this year (last completed 05/05/24) RT ANNUAL VISIT Needed: Needs this year (last completed 05/05/24) SW ANNUAL VISIT Needed:Needs this year (last completed 05/05/24) Mental health screen: Needs this year (last completed 05/05/24) ANNUAL Labs Needed: Needs this year (last completed 02/27/24) Last OGTT/CFRD: +CFRD -> Follows with Tyler Ramirez CNP-last OV 02/14/25; f/u scheduled in May Dexa: NEEDS - Last completed on 09/24/23 -> Lowest T-score is -3.1 in left femoral neck T/Z = > -1.0 - every 5 years T/Z = -1.0 to -2.0 - every 2-4 years T/Z = < -2.0 - every 1 year Colonoscopy (age > 35) N/A WNL-every 5 years Abnormal-every 3 or sooner Abdominal Ultra Sound: MRI BOWLING/MARYAM completed on 05/07/24 -> Multifocal segmental discontinuous bile duct dilation as [...] hospital discharge EPIC/Phone Messages since last visit: 02/12/25; elevated potassium, told to repeat CMP after 1 dose kayexalate 02/15/25; some increase in LFTs probably due to taking tylenol with fevers 02/18/25 reported fever was gone and feeling back to normal 03/18/25; pulmozyme PA completed, pending approval? Other issues: Plan for visit: - Tuckerman ordered and scheduled in [facility] visit in the summer? -can try to add on DEXA at that time - can get annual labs done when able (ordered) Fernando Zhang RD documented in this encounter [facility] 03-18-2025 Telephone encounter Note Medication: Pulmozyme Date Submitted: March 18, 2025 Prescribing Provider: Jennie Method of Submission: CoverMyMeds Outcome: TBD Outcome Date: TBD CALOS Stubbs [facility] 03-18-2025 Miscellaneous Notes Medication: Pulmozyme Date Submitted: March 18, 2025 Prescribing Provider: Jennie Method of Submission: CoverMyMeds Outcome: TBD Outcome Date: TBD CALOS Stubbs documented in this encounter [facility] 02-14-2025 Instructions Stephie Ramirez APRN.CNP - 02/14/2025 2:34 PM EDT Patient educated to have ophthalmology visits at least once a year. documented in this encounter [facility] 02-14-2025 Note HNO ID: [id number] Author: STEPHIE RAMIREZ APRN.CNP Service: ? Author Type: Nurse Practitioner Type: Progress Notes Filed: 02/14/2025 18:50 Note Text: Subjective Date of encounter: 02/14/2025 Jay Barber (1995), is a 29 year old male who presents for Diabetes [...] 10/2023: 6.4%, 01/2024: 6.3%, 03/2024: 6.1%, 07/2024: 6.2%, 10/2024: 6.3%, 01/2025: HbA1C 6.2%, Thyroid Function Testin10/2013: TSH 2.29 (0.358-3.740), free T4 1.02 (0.76-1.46), 12/2015: TSH 1.970 (0.358-3.740 uIU/mL), free T4 1.15 (0.76-1.46 ng/dL), 01/2018: TSH 1.735 (0.35-5.5), 12/2018: TSH 1.137 (0.35-5.5), 05/2019: TSH 2.293 (0.35-5.5), 01/2020: TSH 1.754 (0.35-5.5), free T4 1.2 (0.9-1.5), 01/2021: TSH 1.9 (0.27-4.2 uIU/mL), free T4 1.2 (0.9-1.7), 12/2021: TSH 3.41 (0.27-4.2 uIU/mL), free T4 1.1 (0.9-1.7), 07/2023: TSH 2.35 (0.27-4.2 uIU/mL), 10/2024: TSH 1.81 (0.27-4.2 uIU/mL) Renal Function Testin08/2013: creatinine 0.7, 12/2015: creatinine 0.69 mg/dL, eGFR >60,), 05/2018: Creatinine 0.72, 01/2019: Creatinine 0.86, 07/2019: Creatinine 0.73, 07/2020: Creatinine 0.65, 10/2020: Creatinine 0.64, 01/2021: Creatinine 0.81, 03/2021: Creatinine 0.73, 12/2021: Creatinine 0.64, 12/2022: Creatinine 0.78, 03/2023: Creatinine 0.83, 08/2023: Creatinine 1.13 eGFR 90, 10/2023: Creatinine 1.04, 03/2024: Creatinine 1.37 eGFR 71, 03/2024: Creatinine 1.02, 10/2024: Creatinine 1.3 eGFR 75, 01/2025: Creatinine 2.2 eGFR 40, Urine for Microalbumin:10/2013: Microalbumin:Creatinine ratio ok,12/2015: microalbumin [...] further kidney damage., 10/2022: prot/creat ratio in the medical center, making appointment with nephrology, 07/2023: prot/creat ratio in the medical center Lipid Profile:10/2013: TC 111, HDL 42, LDL [...] results in care everywhere, 01/2020: labs in [facility], 07/2020; Alkaline Phosphatase 725 (45-117), ALT 77 (16-61), AST 163 (15-37), 12/2020: results in care everywhere., 03/2021: results In care everywhere, 12/2021: Alkaline Phosphatase 918 (38-113), bone percent 13.9%, liver percent 86.1 , 12/2022: liver function monitored by CF providers, 03/2023: in the medical center, 08/2023: LFTS in the medical center, 10/2023: LFTS in the medical center, 03/2024: liver test in the medical center, 10/2024: liver in the medical center, 01/2025: liver in the medical center Dilated Eye Exam: Patient educated to have ophthalmology visits at least once a year. 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 08/2013: New patient visit for Cystic Fibrosis related Diabetes Previous diabetes related labs from [facility] and [facility]-everywhere systems reviewed prior to today's office visit. [...] enzymes. Endocrinology: we manage patients CFRD only. Continuous Glucose Monitor (CGM) documentation Monitor Brand: dexcom Date range: 02/01/25-02/14/25 Average S Time in Range ( in %): 61 Time in low range( in %): 0 Predicted GMI (in %): n/a Trends: overnights improving, we discussed afternoon/early evening elevations in depth . Diet is finally returning, was sick recently. Elects no kristen (more content not included)... [facility] 02-14-2025 History of Presen t illness Narrative Subjective Date of encounter: 02/14/2025 Jay Barber (1995), is a 29 year old male who presents for Diabetes [...] 10/2023: 6.4%, 01/2024: 6.3%, 03/2024: 6.1%, 07/2024: 6.2%, 10/2024: 6.3%, 01/2025: HbA1C 6.2%, Thyroid Function Testin10/2013: TSH 2.29 (0.358-3.740), free T4 1.02 (0.76-1.46), 12/2015: TSH 1.970 (0.358-3.740 uIU/mL), free T4 1.15 (0.76-1.46 ng/dL), 01/2018: TSH 1.735 (0.35-5.5), 12/2018: TSH 1.137 (0.35-5.5), 05/2019: TSH 2.293 (0.35-5.5), 01/2020: TSH 1.754 (0.35-5.5), free T4 1.2 (0.9-1.5), 01/2021: TSH 1.9 (0.27-4.2 uIU/mL), free T4 1.2 (0.9-1.7), 12/2021: TSH 3.41 (0.27-4.2 uIU/mL), free T4 1.1 (0.9-1.7), 07/2023: TSH 2.35 (0.27-4.2 uIU/mL), 10/2024: TSH 1.81 (0.27-4.2 uIU/mL) Renal Function Testin08/2013: creatinine 0.7, 12/2015: creatinine 0.69 mg/dL, eGFR >60,), 05/2018: Creatinine 0.72, 01/2019: Creatinine 0.86, 07/2019: Creatinine 0.73, 07/2020: Creatinine 0.65, 10/2020: Creatinine 0.64, 01/2021: Creatinine 0.81, 03/2021: Creatinine 0.73, 12/2021: Creatinine 0.64, 12/2022: Creatinine 0.78, 03/2023: Creatinine 0.83, 08/2023: Creatinine 1.13 eGFR 90, 10/2023: Creatinine 1.04, 03/2024: Creatinine 1.37 eGFR 71, 03/2024: Creatinine 1.02, 10/2024: Creatinine 1.3 eGFR 75, 01/2025: Creatinine 2.2 eGFR 40, Urine for Microalbumin:10/2013: Microalbumin:Creatinine ratio ok,12/2015: microalbumin [...] results in care everywhere, 01/2020: labs in [facility], 07/2020; Alkaline Phosphatase 725 (45-117), ALT 77 (16-61), AST 163 (15-37), 12/2020: results in care everywhere., 03/2021: results In [facility] everywhere, 12/2021: Alkaline Phosphatase 918 (38-113), bone percent 13.9%, liver percent 86.1 , 12/2022: liver function monitored by CF providers, 03/2023: in epic, 08/2023: LFTS in epic, 10/2023: LFTS in the medical center, 03/2024: liver test in the medical center, 10/2024: liver in the medical center, 01/2025: liver in the medical center Dilated Eye Exam: Patient educated to have ophthalmology visits at least once a year. 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 08/2013: New patient visit for Cystic Fibrosis related Diabetes [facility] to [facility]'s office visit. [...] enzymes. Endocrinology: we manage patients CFRD only. Continuous Glucose Monitor (CGM) documentation Monitor Brand: dexcom Date range: 02/01/25-02/14/25 Average S Time in Range ( in %): 61 Time in low range( in %): 0 Predicted GMI (in %): n/a Trends: overnights improving, we discussed afternoon/early evening elevations in depth . Diet is finally returning, was sick recently. Elects no changes for now. Diet: can be high in carbs per patient due to CF diet to gain weight per patient.. Exercise: as tolerated History of hypoglycemia unawareness,-using dexcom now. Likes the g7 Insulin pump: not interested at this time-we discussed beta bionics ilet pump in depth. Glucagon kit: has baqsimi. 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) Transfusion history Type 1 diabetes mellitus with hyperglycemia (HCC) PAST SURGICAL HISTORY Procedure Laterality Date PAST SURGICAL HISTORY OF splenal renal shunt to treat portal hypertension PICC LINE INSERT/CONSULT 03/08/2023 PICC LINE INSERT/CONSULT 02/03/2024 PICC LINE INSERTION (PICC TEAM) ([place]) 08/19/2024 FAMILY HISTORY Problem Relation Age of Onset Hypertension Mother Breast Cancer Other other (hypercholesterolemia) Other other (heart disease in female family member before age 65) Other Social History Tobacco Use Smoking status: Never Smokeless tobacco: Never Vaping Use Vaping status: Never Used Substance Use Topics Alcohol use: No Drug use: No Current Meds sodium polystyrene sulfonate, with sorbitol, (SPS) 15-20 gram/60 mL susp suspension Take 120 mL by mouth as needed. Take 120 mL by mouth as needed for hyperkalemia while on home IV antibiotics doxycycline (VIBRA-TABS) 100 mg tablet Take 1 tablet by mouth two times a day. CREON 36,000-114,000- 180,000 unit delayed release capsule Take 3 capsules by mouth three times a day with meals. 3 with snacks ciprofloxacin HCl (CIPRO) 750 mg tablet Take 1 tablet by mouth three times a day for 14 days. ipratropium-albuterol (DUONEB) 0.5 mg-3 mg(2.5 mg base)/3 mL nebu Inhale 3 mL as instructed every 4 hours as needed for wheezing/shortness of breath. carvedilol (COREG) 25 mg tablet Take 1 tablet by mouth two times a day with meals. albuterol (PROVENTIL) 2.5 mg /3 mL (0.083 %) nebulizer solution Use 3 mL via nebulizer every 4 hours as needed for wheezing/shortness of breath. Inhale over 5-15 minutes elexacaftor 100 mg-tezacaftor 50 mg-ivacaftor 75 mg(d)/ivacaftor 150 mg(n) tablets (TRIKAFTA) Alternate between 2(starting 07/30) and 1 tablet every morning , hold evening dose dornase christi (PULMOZYME) 1 mg/mL nebulizer solution Inhale 2.5 mL as instructed once daily. fluticasone-salmeterol (ADVAIR DISKUS) 500-50 mcg/dose dsdv Inhale 1 Puff as instructed two times a day. cholecalciferol, Vitamin D3, (VITAMIN D3) 1,250 mcg (50,000 unit) cap capsule Take 1 capsule by mouth two times a week. Blood-Glucose Meter monitoring kit For monitoring sugars 3x/day VITAMIN D2 1,250 mcg (50,000 unit) capsule Take 1 capsule by mouth two times a week. Blood-Glucose Meter,Continuous (DEXCOM G7 FARROWING MANAGER) misc For monitoring sugars glucagon (BAQSIMI) 3 mg/actuation nasal spray Use 1 [place] in the nose as needed. May repeat [...] daily. Nebulizers 1 Each three times daily. insulin glargine (LANTUS SOLOSTAR U-100 INSULIN) 100 unit/mL (3 mL) inject 11 units subcutaneously at bedtime insulin lispro (HUMALOG KWIKPEN INSULIN) 100 unit/mL Dose varies units with meals and sliding scale, using about 30 total units a day Lancets Use as instructed 3x/day Blood-Glucose Sensor (DEXCOM G7 SENSOR) jean-paul use as directed and REPLACE every 10 days Insulin Vaughn, Disposable, (BD YARON 2ND GEN PEN NEEDLE) 32 gauge x 5/32 5x/day blood sugar diagnostic (BLOOD GLUCOSE TEST) test strip 3x/day Objective BP 131/83 Pulse 85 Ht 156.5 cm (5' 1.6) Wt 39.7 kg (87 lb 8 oz) BMI 16.21 kg/m Physical Exam Constitutional: General: He is not in acute distress. Appearance: He is not toxic-appearing. HENT: Head: Normocephalic and atraumatic. Eyes: General: No scleral icterus. Conjunctiva/sclera: Conjunctivae normal. Cardiovascular: Rate and Rhythm: Normal rate and regular rhythm. Pulmonary: Effort: Pulmonary effort is normal. No respiratory distress. Breath sounds: Wheezing (left lower lung-pulmonary aware per patient) present. Skin: General: Skin is warm. Neurological: Mental [...] hyperglycemia (HCC) - ICD9: 250.01, ICD10: E10.65 (primary diagnosis) - HEMOGLOBIN A1C (POC) - LANTUS SOLOSTAR U-100 INSULIN 100 UNIT/ML (3 ML) SUBCUTANEOUS PEN - INSULIN LISPRO (U-100) 100 UNIT/ML SUBCUTANEOUS PEN - LANCETS - DEXCOM G7 SENSOR DEVICE - PEN NEEDLE, DIABETIC 32 GAUGE X 5/32 - BLOOD SUGAR DIAGNOSTIC STRIPS - GLUCOSE MONITOR, 72 HOUR, PHYS INTERP Plan of Care: 1. Recent HbA1C 6.2% 2. Can continue current diabetes medications and dosages for now. 3. I spent a total of >30 minutes on the date of the service which included preparing to see the patient, [id number] patient care, completing clinical documentation, obtaining and/or reviewing separately obtained history, performing a medically appropriate examination, counseling and educating the patient/family/caregiver, ordering medications, tests, or procedures, independently interpreting results (not separately reported), communicating results to the patient/family/caregiver, and care coordination (not separately reported). Greater than 50% of the time was spent in counseling and/or coordination of care. 4. Please bring your blood sugar log, meter (if applicable), or your continuous glucose monitoring (CGM) device to your office visits. 5. Answered all questions. 6. Patient verbalized understanding of all the above instructions. 7. Discussed therapeutic lifestyle changes. 2. 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 ---Start doxycycline 100 mg twice daily X4 days ---Finish cipro ---CF respiratory culture today ---RVP today ---Your FEV1 down a little was 22 % today ---Weight down but likely due to sore throat and difficulty swallowing ---Repeat CMP today ---Sent kayexelate script to pharmacy; will let you know to start if potassium still elevated ---Let us know if not improving in the next week ---Follow up with Dr Kilgore as scheduled at [place] on April 06. documented in this encounter [facility] 02-09-2025 History of Presen t illness Narrative PULM FUNCTION: Provider: Sally Schneider APRN.CNP Spirometry: 1 documented in this encounter [facility] 02-09-2025 History of Presen t illness Narrative Images from the original note were not included. PULMONARY MEDICINE CYSTIC FIBROSIS FOLLOW UP Patient Name: Jay Barber PRIMARY CARE PHYSICIAN: No primary care provider on file. Portions of this note were taken from the note dated 01/05/2025 ASSESSMENT AND PLAN: Jay Barber is a [...] is ABSENT We discussed the following today: ---Symptoms likely due to a viral illness , some can linger for several weeks. ---Start doxycycline 100 mg twice daily X4 days ---Finish cipro ---CF respiratory culture today ---RVP today ---Your FEV1 down a little was 22 % today ---Weight down but likely due to sore throat and difficulty swallowing ---Repeat CMP today ---Sent kayexelate script to pharmacy; will let you know to start if potassium still elevated ---Let us know if not improving in the next week ---Follow up with Dr Kilgore as scheduled at [place] on April 06. 1. CYSTIC FIBROSIS PULMONARY DISEASE AND BRONCHIECTASIS Pulmonary symptoms near recent baseline, with minimal congestion and cough. Marked fatigue. FEV1% predicted today: 22% ; was 25% 01/05/2025 , was 23% 10/06/24 ; was 22% 09/09/24; was 24% on 08/18/24; was 27% (0.85L) 02/25/24; 27% (0.87L) 02/12/24; 29% (0.92L) 11/12/23; was 33% (1.03L ) 09/24/23; 1.15L 07/02/23 Complicated by chronic respiratory tract infection with [...] corticosteroids Exacerbations in the last 12 months: -Home IV abx: 08/19/24 - 09/15/24 -->IV Meropenem and IV Vancomycin -Hospital Admit: 02/03/24 - 02/16/24 for CF Exacerbation and Upper GIB -> treated with IV Meropenem, Minocycline and Vancomycin while inpatient -> discharged on Home IV abx IV Meropenem and IV Vancomycin through 02/23/24 [...] size and function normal ---Weight: BMI of 15.89, 85 lbs, down 4 lbs since last visit. ---Discussed lung transplantation: Dr. Pinon discussed Lung and liver possibility extensively with patient during July 2023 hospital admission - pt eventually deferred at hospital discharge ---Referred for lung transplantation: had agreed to start insurance verification, etc. But [...] 300mg BID --- last RUQ US in 01/2024; MRI 05/07/2024 --- last EGD 01/2024 --- hepatology follow-up --- currently off diuretics CHRONIC [...] ---Referral to ENT for surgical eval. Appt [phone]. 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 Burke France in 2019 for 1 year Depression/Anxiety ---was on celexa 20 mg PO daily in 2018, 2021. 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 Proteinuria ---previously seen by Dr. Ahuja in nephrology ---acute kidney injury 2o recent illness, IV antibx -Last CMP with eGFR 50 and creatinine 1.85 02/08/25 CYSTIC FIBROSIS RELATED DIABETES ---The standard medical therapy for CFRD is subcutaneous insulin ---Patient currently on insulin therapy ---Self monitored blood glucose 3 times per day ---Patient has a CGM: yes - screening and monitoring ---Most recent hgA1c noted. 6.3 10/12/2024. Reordered ---Had ophthalmology retinal exam: needs to be done ---Urine albumin/creatinine ratio done: ---Following with Dr. Francis Ramirez at [facility] ---DEXA with annual visit (last done 2022, -2.5 to -3.1) Hemoglobin A1C (%) Date Value 01/07/2025 6.2 02/03/2024 6.3 07/03/2023 6.9 03/08/2023 7.7 11/05/2022 8.4 12/08/2015 8.3 Hemoglobin A1c (%) Date Value 05/22/2021 7.4 09/11/2020 6.4 12/30/2019 6.9 Hemoglobin A1C (POCT) (%) Date Value 10/12/2024 6.3 07/06/2024 6.2 03/09/2024 6.1 11/20/2023 6.4 12/24/2021 7.5 ANNUAL SCREENING: ANNUAL LABS: Due after next visit. Last done January 2024 OGTT: NA has CFRD EYE EXAM TO CHECK FOR CATARACTS: DEXA: Needs repeat Oct 2024 LIVER US/Fibroscan: COLONOSCOPY: Start screening at age 40 years (re-screen every 5 years) in CF due to increased risk of GI carcinoma: <35 yo INTERESTED IN RESEARCH: Was the patient screened for barriers to adherence using the Daily Care Check-In? No Immunization History Administered Date(s) Administered COVID-19 original vaccine, age 12+ yr, monovalent (PrePayMe - PURPLE TOP) 12/24/2020 01/21/2021 12/05/2021 COVID-19 vaccine, age 12+ yr, bivalent (panOpen-Emergent Views) 12/04/2022 Haemophilus influenzae b (HbOC) vaccine, 4-dose [...] vaccine, quadrivalent, unspecified formulation 05/27/2012 novel influenza ([id number]) vaccine, PF 10/19/2009 pneumococcal (PCV7) vaccine, 7 [...] for follow-up of Cystic Fibrosis last seen 5 weeks ago. He was doing ok up until the past few days when he developed increased cough , shortness of breath , fever (low grade), increased congestion, ear pain, sinus pain and sore throat. His dad had RSV and he was exposed. Went to express care yesterday they did not do a RVP, strep culture was negative. He continues to have fevers, has been up to 103 F. Takes tylenol for fever, but if it wears off will feel temp going up. Still has sore throat , hurts to swallow, but a little better than before. Able to drink more fluids and eating a little more. Cough at baseline. Rare coughing fits. Sputum production less. Shortness of breath at baseline. Gets winded with exertion but recovers quickly. INTERVAL HISTORY RESPIRATORY: Cough: daily at baseline Paroxysms: occasional Sputum: yes, was thick not able to mobilize but now less sputum Hemoptysis: no Chest Congestion: yes Dyspnea: wittih exertion Chest Pain: no Night sweats: no Fever: yes Fatigue:yes Wheezing: occasional Sinuses: congestion GASTROINTESTINAL: GE Reflux: no Appetite: poor Abdominal Pain:no Bowel Movement: 2/day, Diet (details): high calorie/high fat Supplements: none Vomiting: no Prolapse: None TINNITUS: yes JOINT/BACK PAIN: yes/no Anxiety yes Depression: yes ENDOCRINE CFRD: present Without polyuria, polydipsia, nocturia or hypoglycemic symptoms 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) History of transfusion Hypertension 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 ipratropium-albuterol (DUONEB) 0.5 mg-3 mg(2.5 mg base)/3 mL nebu Inhale 3 mL as instructed every 4 hours as needed for wheezing/shortness of breath. carvedilol (COREG) 25 mg tablet Take 1 tablet by mouth two times a day with meals. albuterol (PROVENTIL) 2.5 mg /3 mL (0.083 %) nebulizer solution Use 3 mL via nebulizer every 4 hours as needed for wheezing/shortness of breath. Inhale over 5-15 minutes elexacaftor 100 mg-tezacaftor 50 mg-ivacaftor 75 mg(d)/ivacaftor 150 mg(n) tablets (TRIKAFTA) Alternate between 2(starting 07/30) and 1 tablet every morning , hold evening dose dornase christi (PULMOZYME) 1 mg/mL nebulizer solution Inhale 2.5 mL as instructed once daily. sodium polystyrene sulfonate, with sorbitol, (SPS) 15-20 gram/60 mL susp suspension Take 120 mL by mouth as needed. Take 120 mL by mouth as needed for hyperkalemia while on home IV antibiotics fluticasone-salmeterol (ADVAIR DISKUS) 500-50 mcg/dose dsdv Inhale 1 Puff as instructed two times a day. insulin glargine (LANTUS SOLOSTAR U-100 INSULIN) 100 [...] directed and REPLACE every 10 days Insulin Vaughn, Disposable, (BD YARON 2ND GEN PEN NEEDLE) 32 gauge x 5/32 5x/day cholecalciferol, Vitamin D3, (VITAMIN D3) 1,250 mcg (50,000 unit) cap capsule Take 1 capsule by mouth two times a week. CREON 36,000-114,000- 180,000 unit delayed release capsule Take 3 capsules by mouth three times a day with meals. 3 with snacks Blood-Glucose Meter monitoring kit For monitoring sugars 3x/day VITAMIN D2 1,250 mcg (50,000 unit) capsule Take 1 capsule by mouth two times a week. Blood-Glucose Meter,Continuous (DEXCOM G7 FARROWING MANAGER) misc For monitoring sugars glucagon (BAQSIMI) 3 mg/actuation nasal spray Use 1 [place] in the nose as needed. May repeat [...] daily. Nebulizers 1 Each three times daily. REVIEW OF SYSTEMS CONSTITUTIONAL: No acute distress. HEENT:Pos for sinusitis; See HPI RESPIRATORY: Positive for cough. See HPI CARDIOVASCULAR: NEg for chest pain GASTROINTESTINAL: Neg for abdominal discomfort, No blood in stools or black stools MUSCULOSKELETAL: Neg for synovitis NEUROLOGIC:Negative for focal numbness or weakness, SKIN:Negative for rash. PSYCHIATRIC: Negative for mood disorder The remainder of the ROS was negative. PHYSICAL EXAMINATION: VITAL SIGNS: BP 103/61 Pulse 97 Temp (Src) 98.2 (Temporal) Resp 16 Wt 84 lb 14 oz (38.5kg) SpO2 97% Last 5 Encounter Wt Readings: Date: Wt: 02/07/2025 38.9 kg (85 lb 12.1 oz) 01/05/2025 40.7 kg (89 lb 11.6 oz) 10/12/2024 39.8 kg (87 lb 11.2 oz) 10/06/2024 37.9 kg (83 lb 8.9 oz) 09/09/2024 38.3 kg (84 lb 7 oz) GENERAL APPEARANCE: He Is well appearing, alert, in no acute distress, well-hydrated, INTEGUMENTARY: skin color, texture, turgor normal, no rashes or lesions; EYES: Anicteric sclera. Pupils are equally round and reactive to light. Extraocular movements are intact. ENT: nasal erthema; mild congestion of B turbinates; +cobblestoning. mild HEME/LYMPH: Supple neck, no adenopathy; thyroid symmetric, normal size, no bruits RESPIRATORY: Good air exchange. No accessory muscle use for respiration. Crackles on left. Few crackles RUL NO wheezing. No Rhonchi. CARDIOVASCULAR: No edema. RRR without murmur, gallop, or rubs. No ectopy GI: Normal abdominal exam, Abdomen soft, non-tender. Bowel sounds normal. No masses, organomegaly MUSCULOSKELETAL: 2+ clubbing B; No arthritis. No deformities or cyanosis. Gait normal. PSYCH:no signs of depression or anxiety Neuro: Non-focal. Sensation grossly intact. DATA: Diagnostic tests reviewed for today's visit were personally reviewed by me: Sputum culture results and Most recent labs LAST LAB RESULTS: ---Reviewed in [facility] CBC with diff: WBC 15.83 02/08/2025 RBC 3.17 02/08/2025 Hemoglobin 9.0 02/08/2025 Hematocrit 28.1 02/08/2025 MCV 88.6 02/08/2025 MCH 28.4 02/08/2025 MCHC 32.0 02/08/2025 RDW-CV 13.8 02/08/2025 Platelet Count 394 02/08/2025 MPV 8.7 02/08/2025 Neutrophils % 81.1 02/08/2025 Lymph% 7.5 02/08/2025 Thomas% 9.5 02/08/2025 Eosin% 0.9 02/08/2025 Baso% 0.4 02/08/2025 Abs Neut (Segs + Bands) 12.84 02/08/2025 Abs Thomas 1.51 02/08/2025 Abs Eosin 0.14 02/08/2025 Abs Baso 0.07 02/08/2025 Glucose (mg/dL) Date Value 02/08/2025 160 12/08/2015 113 Potassium Date Value 02/08/2025 6.0 mmol/L 02/24/2024 4.9 Sodium Date Value 02/08/2025 124 mmol/L 12/08/2015 139 mEq/L Chloride Date Value 02/08/2025 96 mmol/L 12/08/2015 102 mEq/L CO2 Date Value 02/08/2025 22 mmol/L 12/08/2015 31 mEq/L Creatinine Date Value 02/08/2025 1.82 mg/dL 02/24/2024 1.60 MG/DL BUN (mg/dL) Date Value 02/08/2025 37 12/08/2015 16 Anion Gap Date Value 02/08/2025 6 mmol/L 12/08/2015 11 Calcium (mg/dL) Date Value 12/08/2015 9.3 Calcium, Total (mg/dL) Date Value 02/08/2025 7.8 Protein, Total (g/dL) Date Value 02/08/2025 7.7 12/08/2015 9.5 Albumin (g/dL) Date Value 02/08/2025 2.1 12/08/2015 3.4 Bilirubin, Total Date Value 02/08/2025 0.6 mg/dL 02/24/2024 0.70 Alkaline Phosphatase Date Value 02/08/2025 974 U/L 02/24/2024 915 AST Date Value 02/08/2025 42 U/L 02/24/2024 163 ALT Date Value 02/08/2025 22 U/L 02/24/2024 96 Vitamin D 25 Hydroxy (ng/mL) Date Value 02/27/2024 32.4 ] Hemoglobin A1C (%) Date Value 01/07/2025 6.2 02/03/2024 6.3 07/03/2023 6.9 03/08/2023 7.7 11/05/2022 8.4 12/08/2015 8.3 Hemoglobin A1c (%) Date Value 05/22/2021 7.4 09/11/2020 6.4 12/30/2019 6.9 Hemoglobin A1C (POCT) (%) Date Value 10/12/2024 6.3 07/06/2024 6.2 03/09/2024 6.1 11/20/2023 6.4 12/24/2021 7.5 SPIROMETRY: Reviewed in [facility] MICROBIOLOGY: Reviewed MICROBIOLOGY SNAPSHOT Written and verbal health teaching given to patient, patient verbalizes understanding and agrees with treatment plan. I spent a total of 50 minutes on the date of the service which included preparing to see the patient, [id number] patient care, completing clinical documentation, performing a medically appropriate examination, ordering medications, tests, or procedures, independently interpreting results (not separately reported), communicating results to the patient/family/caregiver, and care coordination (not separately reported). Electronically Signed: Sally Schneider CNP February 08, 2025 documented in this encounter [facility] 02-07-2025 Telephone encounter Note Opened in error [facility] Work Phone: 02-07-2025 Miscellaneous Notes Opened in error documented in this encounter [facility] 02-07-2025 History of Presen t illness Narrative [facility] Subjective Jay Barber is a 29 year old male. Patient presents with: Sore Throat: ST and fever x 1.5 weeks Patient's been sick for about 2 weeks. He was exposed to his father with RSV. He spoke with his cystic fibrosis team. Chest x-ray was completed, but he was unaware sputum cultures or RSV test were ordered. He has completed Cipro. His cough has decreased, sputum production has decreased. His shortness of breath is around baseline to slightly worse during activity. He continues to have nasal congestion and sinus pain with decreased but darker mucus production. He presents for ongoing sore throat and fevers. Throat feels like there are lumps in it and it hurts to swallow. Food taste abnormal. The history is provided by the patient. Sore Throat Associated symptoms include congestion, coughing, ear pain (ear popping) and shortness of breath. Pertinent negatives include no diarrhea or vomiting. Review of Systems Constitutional: Positive for fever (Around 100). HENT: Positive for congestion, ear pain (ear popping), postnasal drip, rhinorrhea, sinus pain and sore throat. Respiratory: Positive for cough and shortness of breath. Cardiovascular: Negative for chest pain. Gastrointestinal: Negative for diarrhea, nausea and vomiting. Objective BP 128/82 Pulse 98 Temp 37.9 C (100.2 F) (Tympanic) Resp 16 Wt 38.9 kg (85 lb 12.1 oz) SpO2 95% BMI 15.89 kg/m Physical Exam Constitutional: General: He is not in acute distress. Appearance: He is not ill-appearing. HENT: Right Ear: Tympanic membrane and ear canal normal. Left Ear: Tympanic membrane and ear canal normal. Nose: Congestion present. No rhinorrhea. Mouth/Throat: Mouth: Mucous membranes are moist. Pharynx: Posterior oropharyngeal erythema (mild) present. No oropharyngeal exudate. Comments: No white patches. 1 cm reddish denuded oval right tip of the tongue Cardiovascular: Rate and Rhythm: Normal rate and regular rhythm. Heart sounds: No murmur heard. Pulmonary: Breath sounds: Wheezing and rhonchi (left lower lung field with decreased breath sounds) present. Musculoskeletal: Cervical back: Neck supple. Lymphadenopathy: Cervical: No cervical adenopathy. Neurological: Mental Status: He is alert. ASSESSMENT/PLAN: 1. Sore throat - ICD9: 462, ICD10: J02.9 (primary diagnosis) - STREP A MOLECULAR (POC) - negative. - YEAST SCREEN pharyngeal swab to rule out thrush after recent antibiotic use. Suspect post-nasal drainage irritation. 2. Subacute cough - ICD9: 786.2, ICD10: R05.2 3. Fever, unspecified fever cause - ICD9: 780.60, ICD10: R50.9 4. Cystic fibrosis (HCC) - ICD9: 277.00, ICD10: E84.9 - XR CHEST 2V FRONTAL/LAT Lungs and pleura: No appreciable interval change in coarse interstitial markings related to underlying bronchiectasis with associated peribronchial cuffing. Slight interval improvement in superimposed hazy airspace opacities in the right upper lobe, however apparent slight interval increase in hazy/reticular opacities in the left lower lobe. Findings suspicious for evolving infectious/inflammatory process. No pleural effusion or pneumothorax. Worsening finding on imaging with symptoms and exam findings of left lower lung infection. He will contact his CF team to determine what his next course of action will be. Farrukh Gomes MD documented in this encounter [facility] 02-07-2025 History of Presen t illness Narrative Radiology Service Progress Note PATIENT NAME: Jay Barber DATE OF SERVICE: February 07, 2025 TIME: 11:23 AM PATIENT IDENTITY VERIFICATION COMPLETED USING TWO (2) IDENTIFIERS: Name and Date of confirmed by patient verbally. FALL SCREENING: Has the patient had 2 falls in the last year or 1 fall with injury or currently using an Ambulatory Assistive Device (Walker, Cane, Wheelchair, Crutches, etc.)? No PATIENT GENDER DATA: Assigned male at PATIENT RELEVANT IMPLANT DATA REVIEWED: Not Applicable PATIENT PRESENTS WITH AN IMPLANTABLE OR ATTACHED JOB COST ESTIMATOR: No RADIOLOGY DEPARTMENT: General X-ray: Exam(s) Completed: Chest X-Ray PERIPHERAL IV DATA: Not applicable SIGNED BY: Juanito Day February 07, 2025 11:23 AM documented in this encounter [facility] 02-01-2025 History of Presen t illness Narrative Radiology Service Progress Note PATIENT NAME: Jay Barber DATE OF SERVICE: February 01, 2025 TIME: 11:44 AM PATIENT IDENTITY VERIFICATION COMPLETED USING TWO (2) IDENTIFIERS: Name and Date of confirmed by patient verbally. FALL SCREENING: Has the patient had 2 falls in the last year or 1 fall with injury or currently using an Ambulatory Assistive Device (Walker, Cane, Wheelchair, Crutches, etc.)? No PATIENT GENDER DATA: Assigned male at PATIENT RELEVANT IMPLANT DATA REVIEWED: Not Applicable PATIENT PRESENTS WITH AN IMPLANTABLE OR ATTACHED JOB COST ESTIMATOR: No RADIOLOGY DEPARTMENT: General X-ray: Exam(s) Completed: Chest X-Ray PERIPHERAL IV DATA: Not applicable SIGNED BY: Juanito Day February 01, 2025 11:44 AM documented in this encounter [facility] 01-31-2025 Telephone encounter Note Updated patient that a CXR has also been ordered for him to complete. [facility] 01-31-2025 Miscellaneous Notes Updated patient that a CXR has also been ordered for him to complete. Called and spoke with patient. States he started feeling sick about 1 week ago with increased cough and sputum production, though both of those symptoms resolved a couple days ago. States he now has had a lingering fever and intermittent episodes of hemoptysis without any associated shortness of breath. Patient sounds well over the phone. Since patient does have hemoptysis, ordered a course of oral Cipro - pt is agreeable, though did state that both Cipro and Bactrim tend to cause him GI upset. Also discussed having patient drop off a sputum sample to his local lab as well as completing a RVP swab. Pt agreeable to plan and will update once he completes both the sputum sample and RVP swab locally. Will notify providers for any further instruction. documented in this encounter [facility] 01-31-2025 Telephone encounter Note Called and spoke with patient. States he started feeling sick about 1 week ago with increased cough and sputum production, though both of those symptoms resolved a couple days ago. States he now has had a lingering fever and intermittent episodes of hemoptysis without any associated shortness of breath. Patient sounds well over the phone. Since patient does have hemoptysis, ordered a course of oral Cipro - pt is agreeable, though did state that both Cipro and Bactrim tend to cause him GI upset. Also discussed having patient drop off a sputum sample to his local lab as well as completing a RVP swab. Pt agreeable to plan and will update once he completes both the sputum sample and RVP swab locally. Will notify providers for any further instruction. [facility] 01-05-2025 History of Presen t illness Narrative PULM FUNCTION: Provider: Jean Pierre Kilgore MD Spirometry: 1 documented in this encounter [facility] 01-05-2025 History of Presen t illness Narrative Images from the original note were not included. PULMONARY MEDICINE CYSTIC FIBROSIS FOLLOW UP January 05, 2025 Patient Name: Jay Barber PRIMARY CARE PHYSICIAN: No primary care provider on file. Portions of this note were taken from the note dated 10/06/24, 12/30/24 Last CF clinic visit date: 10/06/24 with Sally ASSESSMENT AND PLAN: Jay Barber is a [...] portal hypertension, esophageal varices ---Chronic sinusitis ---Anxiety/Depression BMI: 16.04kg/m2 BMI Trend: decreased with exacerbation A CF Pulmonary Exacerbation is absent We discussed the following today: CF --no exacerbation today --FEV1 up, best since last summer (25%) --weight up, also best since last summer CF Liver Disease --lets check labs (it's been 3 months) Chronic Kidney Disease Stage 2 (mild) --recheck labs (it's been 3 months) CFRD --recheck A1C with labs Follow up with Dr Kilgore [facility] in 3 months HISTORY OF PRESENT ILLNESS: Jay Barber is a 29 year old male, here for follow-up of Cystic Fibrosis Courses of oral abx since last visit:0 Courses of IV abx since last visit:0 Prednisone use since last visit: 0 ED visits since last visit: 0 Hospitalizations since last visit: 0 [place]/Phone Messages since last visit: 10/11/24: nurse left message regarding lab work (told to hydrate, repeat labs); repeated on 10/12/24 and improved, but still slightly elevated 11/10/24: requesting PrePayMeb script INTERVAL HISTORY Has gradually smoldered since last hospitalization. Hasn't returned to baseline of last winter, but has gradually improved since fall admission. Had URI (along with relatives) ~ 5 wesk ago, lasting 10-14 days. Returned to baseline rapidly,. Had hemoptysis twice this year (once each side), of clots for 20'. Resolved. Currently doing well. RESPIRATORY: Cough: occasional Paroxysms: rare Sputum: rare Hemoptysis: q2-3 weeks Chest Congestion: minimal Dyspnea: with exertion Chest Pain: no Night sweats: no Fever: no Fatigue:yes Wheezing: no, but feels tight Sinuses: moderate congestion GASTROINTESTINAL: GE Reflux: no Appetite: good - weight up 6 lbs Abdominal Pain:no Bowel Movement: 1/day, Diet (details): high calorie/high fat Supplements: has used Ensure Vomiting: no Prolapse: None TINNITUS: no JOINT/BACK PAIN: no Anxiety no Depression: no ENDOCRINE CFRD: Not present Without polyuria, polydipsia, nocturia or hypoglycemic symptoms Diet (details): high calorie/high fat Supplements: no Vomiting: no Prolapse: None TINNITUS: no JOINT/BACK PAIN: no/see HPI Anxiety no Depression: no ENDOCRINE CFRD: Without polyuria, polydipsia, nocturia or hypoglycemic symptoms 1. CYSTIC FIBROSIS PULMONARY DISEASE AND BRONCHIECTASIS Pulmonary symptoms near recent baseline, with minimal congestion and cough. Marked fatigue. 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 Pinon discussed Lung and liver possibility extensively with patient during July 2023 hospital admission - pt eventually deferred at hospital discharge ---Referred for lung transplantation: had agreed to start insurance verification, etc. But [...] 300mg BID --- last RUQ US in 01/2024; MRI 05/07/2024 --- last EGD 01/2024 --- hepatology follow-up --- currently off diuretics CHRONIC [...] ---Referral to ENT for surgical eval. Appt [phone]. 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 Burke France in 2019 for 1 year Depression/Anxiety ---was on celexa 20 mg PO daily in 2018, 2021. 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 Recheck next office visit Proteinuria ---previously seen by Dr. Ahuja in nephrology ---acute kidney injury 2o recent illness, IV antibx -Last CMP with eGFR 89 and creatinine 1.20 -recheck, labs ordered CYSTIC FIBROSIS RELATED DIABETES ---The standard medical therapy for CFRD is subcutaneous insulin ---Patient currently on insulin therapy ---Self monitored blood glucose 3 times per day ---Patient has a CGM: yes - screening and monitoring ---Most recent hgA1c noted. 6.3 10/12/2024. Reordered ---Had ophthalmology retinal exam: needs to be done ---Urine albumin/creatinine ratio done: ---Following with Dr. Francis Ramirez at [facility] OSTEOPOROSIS ---DEXA with annual visit (last done 2022, -2.5 to -3.1) Vitamin D 25 Hydroxy (ng/mL) Date Value 02/27/2024 32.4 ] Hemoglobin A1C Date Value Ref Range Status 02/03/2024 6.3 (H) 4.3 - 5.6 % Final Comment: [place] [employer] guidelines indicate that patients with HgbA1c in the range 5.7-6.4% are at increased risk for development of diabetes, and intervention by lifestyle modification may be beneficial. HgbA1c greater or equal to 6.5% is considered diagnostic of diabetes. Hemoglobin A1C (POCT) Date Value Ref Range Status 10/12/2024 6.3 (A) 4.3 - 5.6 % Final Comment: Location:[facility], [address], [address] Point of care (POC) Hemoglobin A1c (HGBA1C) [...] specific diabetes management situations: The POC device care director provides a normal range of 4.2% to 6.5% for the HGBA1C POC test. However, the [place] [employer] guidelines indicate that patients with [...] anemia) that alter red blood cell lifespan. 07/06/2024 6.2 (A) 4.3 - 5.6 % Final Comment: Location:[facility], [address] [place] [address], [facility] Point of care (POC) Hemoglobin A1c (HGBA1C) [...] specific diabetes management situations: The POC device care director provides a normal range of 4.2% to 6.5% for the HGBA1C POC test. However, the [place] [employer] guidelines indicate that patients with [...] (A) 4.3 - 5.6 % Final Comment: [facility], [address] [place] [address], [id number] Point of care (POC) Hemoglobin A1c (HGBA1C) [...] specific diabetes management situations: The POC device care director provides a normal range of 4.2% to 6.5% for the HGBA1C POC test. However, the [place] [employer] guidelines indicate that patients with [...] 6.4 4.2 - 5.6 % Final Comment: [facility], [address] [place] [address], [id number] Point of care (POC) Hemoglobin A1c (HGBA1C) [...] specific diabetes management situations: The POC device care director provides a normal range of 4.2% to 6.5% for the HGBA1C POC test. However, the [place] [employer] guidelines indicate that patients with [...] alter red blood cell lifespan. HAD COVID: Yes VAPE: No ANNUAL SCREENING: ANNUAL LABS: Due after next visit. Last done January 2024 OGTT: NA has CFRD EYE EXAM TO CHECK FOR CATARACTS: DEXA: Needs repeat Oct 2024 LIVER US/Fibroscan: COLONOSCOPY: Start screening at age 40 years (re-screen every 5 years) in CF due to increased risk of GI carcinoma: <35 yo INTERESTED IN RESEARCH: Was the patient screened for barriers to adherence using the Daily Care Check-In? No RD ANNUAL VISIT Needed: Needs this year with [facility] visit in July (last completed 05/05/24) RT ANNUAL VISIT Needed: Needs this year with [facility] visit in July (last completed 05/05/24) SW ANNUAL VISIT Needed:Needs this year (with [facility] visit in July last completed 05/05/24) Mental health screen: Needs this year with [facility] visit in July last completed 05/05/24) ANNUAL Labs Needed: Needs this year after next visit (last completed 02/27/24) Last OGTT/CFRD: +CFRD -> Follows with Tyler Ramirez CNP-last OV 10/12/24 Dexa: NEEDS - Last completed on 09/24/23 -> Lowest T-score is -3.1 in left femoral neck T/Z = > -1.0 - every 5 years T/Z = -1.0 to -2.0 - every 2-4 years T/Z = < -2.0 - every 1 year Colonoscopy (age > 35) N/A WNL-every 5 years Abnormal-every 3 or sooner Abdominal Ultra Sound: MRI BOWLING/MARYAM completed on 05/07/24 -> Multifocal segmental discontinuous bile duct dilation as [...] COVID-19 original vaccine, age 12+ yr, monovalent (PrePayMe - PURPLE TOP) 12/24/2020 01/21/2021 12/05/2021 COVID-19 vaccine, age 12+ yr, bivalent (panOpen-Emergent Views) 12/04/2022 Haemophilus influenzae b (HbOC) vaccine, 4-dose [...] vaccine, quadrivalent, unspecified formulation 05/27/2012 novel influenza ([id number]) vaccine, PF 10/19/2009 pneumococcal (PCV7) vaccine, 7 [...] (HCC) History of transfusion Hypertension 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 carvedilol (COREG) 25 mg tablet Take 1 tablet by mouth two times a day with meals. albuterol (PROVENTIL) 2.5 mg /3 mL (0.083 %) nebulizer solution Use 3 mL via nebulizer every 4 hours as needed for wheezing/shortness of breath. Inhale over 5-15 minutes elexacaftor 100 mg-tezacaftor 50 mg-ivacaftor 75 mg(d)/ivacaftor 150 mg(n) tablets (TRIKAFTA) Alternate between 2(starting 07/30) and 1 tablet every morning , hold evening dose dornase christi (PULMOZYME) 1 mg/mL nebulizer solution Inhale 2.5 mL as instructed once daily. sodium polystyrene sulfonate, with sorbitol, (SPS) 15-20 gram/60 mL susp suspension Take 120 mL by mouth as needed. Take 120 mL by mouth as needed for hyperkalemia while on home IV antibiotics fluticasone-salmeterol (ADVAIR DISKUS) 500-50 mcg/dose dsdv Inhale 1 Puff as instructed two times a day. insulin glargine (LANTUS SOLOSTAR U-100 INSULIN) 100 [...] directed and REPLACE every 10 days Insulin Vaughn, Disposable, (BD YARON 2ND GEN PEN NEEDLE) 32 gauge x 5/32 5x/day cholecalciferol, Vitamin D3, (VITAMIN D3) 1,250 mcg (50,000 unit) cap capsule Take 1 capsule by mouth two times a week. CREON 36,000-114,000- 180,000 unit delayed release capsule Take 3 capsules by mouth three times a day with meals. 3 with snacks Blood-Glucose Meter monitoring kit For monitoring sugars 3x/day VITAMIN D2 1,250 mcg (50,000 unit) capsule Take 1 capsule by mouth two times a week. Blood-Glucose Meter,Continuous (DEXCOM G7 FARROWING MANAGER) [facility] For monitoring sugars glucagon (BAQSIMI) 3 mg/actuation nasal spray Use 1 Absaraka in the nose as needed. May repeat [...] daily. Nebulizers 1 Each three times daily. REVIEW OF SYSTEMS REVIEW OF SYSTEMS GENERAL: No weight loss, malaise or fevers HEENT: Negative for frequent or significant headaches, No changes in hearing or vision, no nose bleeds or other nasal problems RESPIRATORY: gradual worsening, but cough and sputum minimal. Had URI 5 weeks ago for 10-14 days , recovered to baseline quikly. GI: No nausea, vomiting, or diarrhea ENDOCRINE: Negative for cold or heat intolerance, polyuria, polydipsia and goiter PHYSICAL EXAMINATION: VITAL SIGNS: BP 160/100 Pulse 80 Temp (Src) 99 (Temporal) Resp 18 Ht 5' 1.6 (1.57m) Wt 89 lb 11.6 oz (40.7kg) SpO2 95% BMI 16.62 kg/(m^2). PHYSICAL EXAMINATION: General appearance: Well appearing, alert, in no acute distress, well-hydrated, well nourished. and Thin Skin: Skin color, texture, turgor normal, no suspicious rashes or lesions Head: Normocephalic, no masses, lesions, tenderness or abnormalities Eyes: Anicteric sclera. Pupils are equally round and reactive to light. Extraocular movements are intact. Ears: External ears normal, canals clear Nose/Sinuses: Nares nwith mild errythema, minimal white d/c. Oropharynx: Lips, mucosa, and tongue normal, teeth and gums normal, oropharynx normal Neck: Supple, no adenopathy; thyroid symmetric, normal size, no bruits Back: Normal exam Lungs: diffuse crackles without wheezes or honchi. Comfortable excursions, Heart: RRR without murmur, gallop, or rubs. No ectopy Abdomen: non tender, non distended. No caput medusa Extremities: 2+clubbing, not cyanotic. Nl cp refill Peripheral pulses: Normal Neuro: Gait normal. Reflexes normal and symmetric. Sensation grossly intact. DATA: Diagnostic tests reviewed for today's visit were personally reviewed by me: Sputum culture results and Most recent labs and imaging results. LAST LAB RESULTS: ---Reviewed in [facility] CBC with diff: WBC 7.07 10/12/2024 RBC 3.20 10/12/2024 Hemoglobin 9.7 10/12/2024 Hematocrit 30.7 10/12/2024 MCV 95.9 10/12/2024 MCH 30.3 10/12/2024 MCHC 31.6 10/12/2024 RDW-CV 13.2 10/12/2024 Platelet Count 172 10/12/2024 MPV 10.3 10/12/2024 Neutrophils % 57.0 10/12/2024 Lymph% 21.6 10/12/2024 Thomas% 10.5 10/12/2024 Eosin% 9.3 10/12/2024 Baso% 1.3 10/12/2024 Abs Neut (Segs + Bands) 4.03 10/12/2024 Abs Thomas 0.74 10/12/2024 Abs Eosin 0.66 10/12/2024 Abs Baso 0.09 10/12/2024 Glucose (mg/dL) Date Value 10/12/2024 101 12/08/2015 113 Potassium Date Value 10/12/2024 5.4 mmol/L 02/24/2024 4.9 Sodium Date Value 10/12/2024 136 mmol/L 12/08/2015 139 mEq/L Chloride Date Value 10/12/2024 106 mmol/L 12/08/2015 102 mEq/L CO2 Date Value 10/12/2024 24 mmol/L 12/08/2015 31 mEq/L Creatinine Date Value 10/12/2024 1.24 mg/dL 02/24/2024 1.60 MG/DL BUN (mg/dL) Date Value 10/12/2024 22 12/08/2015 16 Anion Gap Date Value 10/12/2024 6 mmol/L 12/08/2015 11 Calcium (mg/dL) Date Value 12/08/2015 9.3 Calcium, Total (mg/dL) Date Value 10/12/2024 8.4 Protein, Total (g/dL) Date Value 10/12/2024 7.4 12/08/2015 9.5 Albumin (g/dL) Date Value 10/12/2024 2.4 12/08/2015 3.4 Bilirubin, Total Date Value 10/12/2024 0.5 mg/dL 02/24/2024 0.70 Alkaline Phosphatase Date Value 10/12/2024 997 U/L 02/24/2024 915 AST Date Value 10/12/2024 82 U/L 02/24/2024 163 ALT Date Value 10/12/2024 53 U/L 02/24/2024 96 Vitamin D 25 Hydroxy (ng/mL) Date Value 02/27/2024 32.4 ] Hemoglobin A1C (POCT) Date Value Ref Range Status 10/12/2024 6.3 (A) 4.3 - 5.6 % Final Comment: Location:[facility], [address] [place] [address], [facility] Point of care (POC) Hemoglobin A1c (HGBA1C) [...] specific diabetes management situations: The POC device care director provides a normal range of 4.2% to 6.5% for the HGBA1C POC test. However, the [place] [employer] guidelines indicate that patients with [...] red blood cell lifespan. SPIROMETRY: Reviewed in [facility] SPIROMETRY BASELINE ONLY ([id number]) - ordered on 10/06/24 ID: [id number] Name: JAY BARBER Visit Date: 01/05/2025 Doctor: Field Cane Scaler: Herber Montes Age: 29 Date of : 1995 Gender: Male Race: White Height: 61.61 in Weight: 89.73 lbs BSA: 1.353 Diagnosis: Cystic fibrosis_ Dyspnea: Cough: Wheeze: Tobacco Use: None Medications: Comments: Current ATS/ERS acceptability and repeatability standards for spirometry met. Start of test and EOFE criteria met.//BC Review Status: Not Reviewed PRE-BRONCH POST-BRONCH Pred LLN ULN Actual %Pred Actual %Chng SPIROMETRY FVC (L) 3.58 2.78 4.38 2.52 70 FEV1 (L) 3.06 2.37 3.71 0.79 25 FEV1/FVC 0.85 0.75 0.94 0.31 36 FEF25 (L/sec) 0.48 FEF50 (L/sec) 4.01 1.89 6.14 0.23 5 FEF75 (L/sec) 1.42 0.74 2.55 0.11 8 [id number] (L/sec) 3.62 2.23 5.35 0.20 5 FEF Max (L/sec) 8.48 6.69 10.27 3.74 44 FIVC (L) 2.32 FIF50 (L/sec) 2.58 FIF Max (L/sec) 3.12 Time (sec) 15.29 MACIEL (L) 0.02 Time To FEF Max (sec) 0.05 SPIROMETRY BASELINE ONLY ([id number]) - ordered on 09/09/24 ID: [id number] Name: JAY BARBER Race: White Ht: 61.61 in Wt: 85.00 lbs Age: 29 Gender: Male : 1995 Dx: Cystic fibrosis_ Smoking Hx: Non-smoker Doctor: SALLY SCHNEIDER Test Date: 10/06/2024 Site: Tech: Tamy Kapoor PRE-BRONCH POST-BRONCH Pre LLN Pred ULN %Pred Post %Pred %Chg SPIROMETRY FVC (L) 2.34 2.78 3.58 4.39 65 FEV1 (L) 0.73 2.38 3.06 3.72 23 FEV1/FVC 0.31 0.75 0.85 0.94 36 PEF L/s (L/sec) 3.64 6.69 8.48 10.27 42 FEF50 (L/sec) 0.25 1.90 4.02 6.14 6 FIF50 (L/sec) 2.28 FEF50/FIF50 0.11 90-100 FIVC (L) 2.13 [id number] (L/sec) 0.20 2.24 3.63 5.36 5 Time (sec) 14.60 FET PEF (sec) 0.04 MACIEL (L) 0.02 Vol Extrap % (%) 1 SPIROMETRY BASELINE ONLY - 09/09/24 ID: [id number] Name: JAY BARBER Race: White Ht: 61.61 in Wt: 84.44 lbs Age: 29 Gender: Male : 1995 Dx: Cystic fibrosis_ Smoking Hx: Non-smoker Doctor: SALLY SCHNEIDER Test Date: 09/09/2024 Site: Tech: Nikkie Wagner PRE-BRONCH POST-BRONCH Pre LLN Pred ULN %Pred Post %Pred %Chg SPIROMETRY FVC (L) 2.20 2.78 3.58 4.39 61 FEV1 (L) 0.68 2.38 3.07 3.72 22 FEV1/FVC 0.31 0.75 0.85 0.94 36 PEF L/s (L/sec) 3.44 6.69 8.48 10.27 40 FEF50 (L/sec) 0.19 1.90 4.02 6.15 4 FIF50 (L/sec) 2.14 FEF50/FIF50 0.09 90-100 FIVC (L) 2.01 [id number] (L/sec) 0.17 2.24 3.63 5.36 4 Time (sec) 15.77 FET PEF (sec) 0.05 MACIEL (L) 0.03 Vol Extrap % (%) 2 08/18/24 0.76L 24% 05/05/24 0.92L 30% 02/25/24 0.85L 27% 02/12/24 0.87L 27% 11/12/23 0.92L 29% 09/24/23 1.03L 33% 07/24/23 1.15L 36% MICROBIOLOGY: Reviewed MICROBIOLOGY SNAPSHOT b. Cepacia complex; MRSA Culture Results - Past 1 Year Culture Smear Result 02/03/2024 Few Methicillin resistant Staphylococcus aureus Few Burkholderia cepacia complex Many normal respiratory vicky One colony Js albicans Mycobacterium chelonae group No acid fast bacilli seen by flurochrome stain 02/04/2024 No growth 5 days 02/04/2024 No growth (<1,000 CFU/ml) 02/04/2024 No growth 5 days 03/25/2024 No Acid Fast Bacilli isolated after 42 days No Fungus isolated after 28 days Few Burkholderia vietnamiensis Rare normal respiratory vicky No acid fast bacilli seen by flurochrome stain 05/05/2024 Rare Burkholderia cepacia complex Many normal respiratory vicky Rare Sphingobacterium multivorum 08/18/2024 Moderate Methicillin-RESISTANT Staphylococcus aureus (MRSA) Moderate Burkholderia vietnamiensis Few respiratory vicky Written and verbal health teaching given to patient, patient verbalizes understanding and agrees with treatment plan. Return to clinic at [place] in 12 weeks, with spirometry (spirometry baseline). I spent a total of 65 minutes on the date of the service which included preparing to see the patient, [id number] patient care, completing clinical documentation, obtaining and/or reviewing separately obtained history, performing a medically appropriate examination, counseling and educating the patient/family/caregiver, and ordering medications, tests, or procedures. Electronically Signed: January 05, 2025 documented in this encounter [facility] 12-30-2024 History of Presen t illness Narrative Images from the original note were not included. CF Pre-Clinic Checklist PRE-TRANSPLANT Last CF clinic visit date: 10/06/24 with Sally Microbiology: b. Cepacia complex; MRSA Culture Results - Past 1 Year Culture Smear Result 02/03/2024 Few Methicillin resistant Staphylococcus aureus Few Burkholderia cepacia complex Many normal respiratory vicky One colony Js albicans Mycobacterium chelonae group No acid fast bacilli seen by flurochrome stain 02/04/2024 No growth 5 days 02/04/2024 No growth (<1,000 CFU/ml) 02/04/2024 No growth 5 days 03/25/2024 No Acid Fast Bacilli isolated after 42 days No Fungus isolated after 28 days Few Burkholderia vietnamiensis Rare normal respiratory vicky No acid fast bacilli seen by flurochrome stain 05/05/2024 Rare Burkholderia cepacia complex Many normal respiratory vicky Rare Sphingobacterium multivorum 08/18/2024 Moderate Methicillin-RESISTANT Staphylococcus aureus (MRSA) Moderate Burkholderia vietnamiensis Few respiratory vicky 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/ 1898+1G>Q ([birth year]01/1994 - in [...] 12 months: -Home IV abx: 08/19/24 - 09/15/24 -->IV Meropenem and IV Vancomycin -Hospital Admit: 02/03/24 - 02/16/24 for CF Exacerbation and Upper GIB -> treated with IV Meropenem, Minocycline and Vancomycin while inpatient -> discharged on Home IV abx IV Meropenem and IV Vancomycin through 02/23/24 -Hospital Admit: 07/02/23-07/29/23 treated with Vancomycin through 07/06, Minocycline through 07/22, and Meropenum through 07/24 (not discharged home on any IV abx) -Hospital Admit: 03/07/23-03/11/23 -> discharged on Home IV abx Vanc and Larisa through 04/01/23 FEV1%: 23% on 10/06/24 FEV1%trend: 22% on 09/15/24; 24% on 08/18/24 ; 30% on 05/05/24 ; 27% on 02/25/24; 27% on 02/12/24 ; 29% on 09/24/23 ; 33% on 09/24/23; 36% on 07/24/23 ; 23% on 07/17/23 ; 23% on 07/10/23 ; 23% on 07/02/23 BMI: 16.04kg/m2 BMI Trend: decreased with exacerbation RD ANNUAL VISIT Needed: Needs this year (last completed 05/05/24) RT ANNUAL VISIT Needed: Needs this year (last completed 05/05/24) SW ANNUAL VISIT Needed:Needs this year (last completed 05/05/24) SW Mental health screen: Needs this year (last completed 05/05/24) ANNUAL Labs Needed: Needs this year (last completed 02/27/24) Last OGTT/CFRD: +CFRD -> Follows with Tyler Ramirez, BUGGY LADLE TENDER-last OV 10/12/24 Dexa: NEEDS - Last completed on 09/24/23 -> Lowest T-score is -3.1 in left femoral neck T/Z = > -1.0 - every 5 years T/Z = -1.0 to -2.0 - every 2-4 years T/Z = < -2.0 - every 1 year Colonoscopy (age > 35) N/A WNL-every 5 years Abnormal-every 3 or sooner Abdominal Ultra Sound: MRI BOWLING/MARYAM completed on 05/07/24 -> Multifocal segmental discontinuous bile duct dilation as [...] hospital discharge EPIC/Phone Messages since last visit: 10/11/24: nurse left message regarding lab work (told to hydrate, repeat labs); repeated on 10/12/24 and improved, but still slightly elevated 11/10/24: requesting DuoNeb script Other issues: Plan for visit: - Sj ordered and scheduled in [facility] visit in the summer? -can try to add on DEXA at that time documented in this encounter [facility] 11-16-2024 Telephone encounter Note Medication: Trikafta Date Submitted: November 16, 2024 Prescribing Provider: Sally Schneider CNP Method of Submission: Covermymeds Outcome: TBD Outcome Date: TBD Fernando Zhang RD [facility] Work Phone: 11-16-2024 Miscellaneous Notes Medication: Trikafta Date Submitted: November 16, 2024 Prescribing Provider: Sally Schneider CNP Method of Submission: Covermymeds Outcome: TBD Outcome Date: TBD Fernando Zhang RD documented in this encounter [facility] 10-14-2024 Telephone encounter Note Done spoke with the patient.Patient verbalized understanding. Crystal Bridges LPN October 14, 2024 2:00 PM [facility] 10-14-2024 Miscellaneous Notes Done spoke with the patient.Patient verbalized understanding. Crystal Bridges LPN October 14, 2024 2:00 PM 10/2024: TSH 1.81 (0.27-4.2 uIU/mL), Thyroid lab ok Please call patient, review message, then sign encounter. documented in this encounter [facility] 10-14-2024 Telephone encounter Note 10/2024: TSH 1.81 (0.27-4.2 uIU/mL), Thyroid lab ok Please call patient, review message, then sign encounter. [facility] 10-12-2024 History of Presen t illness Narrative Subjective Date of encounter: 10/12/2024 Jay Barber (1995), is a 29 year old male who presents for Diabetes [...] 10/2023: 6.4%, 01/2024: 6.3%, 03/2024: 6.1%, 07/2024: 6.2%, 10/2024: 6.3% Thyroid Function Testin10/2013: TSH 2.29 (0.358-3.740), free [...] 03/2024: Creatinine 1.37 eGFR 71, 03/2024: Creatinine 1.02, 10/2024: Creatinine 1.3 eGFR 75 Urine for Microalbumin:10/2013: Microalbumin:Creatinine ratio ok,12/2015: microalbumin [...] appointment with nephrology, 07/2023: prot/creat ratio in the medical center Lipid Profile:10/2013: TC 111, HDL 42, LDL [...] results in care everywhere, 01/2020: labs in [facility], 07/2020; Alkaline Phosphatase 725 (45-117), ALT 77 (16-61), AST 163 (15-37), 12/2020: results in care everywhere., 03/2021: results In [facility] everywhere, 12/2021: Alkaline Phosphatase 918 (38-113), bone percent 13.9%, liver percent 86.1 , 12/2022: liver function monitored by CF providers, 03/2023: in the medical center, 08/2023: LFTS in the medical center, 10/2023: LFTS in the medical center, 03/2024: liver test in the medical center, 10/2024: liver in the medical center Dilated Eye Exam: Patient educated to have ophthalmology visits at least once a year. 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 08/2013: New patient visit for Cystic Fibrosis related Diabetes [facility] prior to today's office visit. [...] patients CFRD only. self monitoring blood glucose data: see dexcom report. Average 14 day SG 177 predicted gmi 7.5%, 57% TIR 2% low range. Occasional post meal elevations. Occasional missed dosages per patient but significantly less, states 80%. Diet: can be high in carbs per patient due to CF diet to gain weight per patient.. Exercise: as tolerated History of hypoglycemia unawareness,-using dexcom now. Likes the g7 Insulin pump: not interested at this time-we discussed beta bionics ilet pump in depth. Glucagon kit: has baqsimi. Your new insulin regimen: Long acting insulin: Insulin used for this is called: Basaglar or lantus Bedtime dose 8 units-->10 Rapid acting /mealtime insulin: Insulin used for [...] (HCC) History of transfusion Hypertension [facility] (current) use of insulin (HCC) Transfusion history Type 1 diabetes mellitus with hyperglycemia (HCC) PAST SURGICAL HISTORY Procedure Laterality Date PAST SURGICAL HISTORY OF splenal renal shunt to treat portal hypertension PICC LINE INSERT/CONSULT 03/08/2023 PICC LINE INSERT/CONSULT 02/03/2024 PICC LINE INSERTION (PICC TEAM) (AK) 08/19/2024 FAMILY HISTORY Problem Relation Age of Onset Hypertension Mother Breast Cancer Other other (hypercholesterolemia) Other other (heart disease in female family member before age 65) Other Social History Tobacco Use Smoking status: Never Smokeless tobacco: Never Vaping Use Vaping status: Never Used Substance Use Topics Alcohol use: No Drug use: No Current Meds carvedilol (COREG) 25 mg tablet Take 1 tablet by mouth two times a day with meals. albuterol (PROVENTIL) 2.5 mg /3 mL (0.083 %) nebulizer solution Use 3 mL via nebulizer every 4 hours as needed for wheezing/shortness of breath. Inhale over 5-15 minutes elexacaftor 100 mg-tezacaftor 50 mg-ivacaftor 75 mg(d)/ivacaftor 150 mg(n) tablets (TRIKAFTA) Alternate between 2(starting 07/30) and 1 tablet every morning , hold evening dose dornase christi (PULMOZYME) 1 mg/mL nebulizer solution Inhale 2.5 mL as instructed once daily. sodium polystyrene sulfonate, with sorbitol, (SPS) 15-20 gram/60 mL susp suspension Take 120 mL by mouth as needed. Take 120 mL by mouth as needed for hyperkalemia while on home IV antibiotics fluticasone-salmeterol (ADVAIR DISKUS) 500-50 mcg/dose dsdv Inhale 1 Puff as instructed two times a day. insulin glargine (LANTUS SOLOSTAR U-100 INSULIN) 100 [...] directed and REPLACE every 10 days Insulin Vaughn, Disposable, (BD YARON 2ND GEN PEN NEEDLE) 32 gauge x 5/32 5x/day cholecalciferol, Vitamin D3, (VITAMIN D3) 1,250 mcg (50,000 unit) cap capsule Take 1 capsule by mouth two times a week. CREON 36,000-114,000- 180,000 unit delayed release capsule Take 3 capsules by mouth three times a day with meals. 3 with snacks ipratropium-albuterol (DUONEB) 0.5 mg-3 mg(2.5 mg base)/3 mL nebu Inhale 3 mL as instructed every 4 hours as needed for wheezing/shortness of breath. Blood-Glucose Meter monitoring kit For monitoring sugars 3x/day VITAMIN D2 1,250 mcg (50,000 unit) capsule Take 1 capsule by mouth two times a week. Blood-Glucose Meter,Continuous (DEXCOM G7 FARROWING MANAGER) [facility] For monitoring sugars glucagon (BAQSIMI) 3 mg/actuation nasal spray Use 1 Absaraka in the nose as needed. May repeat [...] daily. Nebulizers 1 Each three times daily. Objective BP 136/80 Ht 157.5 cm (5' 2) Wt 39.8 kg (87 lb 11.2 oz) BMI 16.04 kg/m Physical Exam Constitutional: General: He is not in acute distress. Appearance: He is not toxic-appearing. HENT: Head: Normocephalic and atraumatic. Eyes: General: No scleral icterus. Conjunctiva/sclera: Conjunctivae normal. Cardiovascular: Rate and Rhythm: Normal rate and regular rhythm. Pulmonary: Effort: Pulmonary effort is normal. No respiratory distress. Breath sounds: Rales (recently finished iv antibiotics. report changes/worsening, states pulmonary is aware/monitoring) present. Skin: General: Skin is warm. Neurological: Mental Status: He is alert. Psychiatric: Mood and Affect: Mood and affect normal. Mood is not anxious. Judgment: Judgment normal. ASSESSMENT/PLAN: 1. Type 1 diabetes mellitus with hyperglycemia (HCC) - ICD9: 250.01, ICD10: E10.65 (primary diagnosis) - THYROID STIMULATING HORMONE - HEMOGLOBIN A1C (POC) - GLUCOSE MONITOR, 72 HOUR, PHYS INTERP Plan of Care: 1. HbA1C 6.3% 2. Can continue current diabetes medications and dosages for now. 3. Total time for today's office visit was greater than 30 minutes. Greater than 50% of the time was spent in counseling and/or coordination of care. 4. Please bring your blood sugar log, meter (if applicable), or your continuous glucose monitoring (CGM) device to your office visits. 5. Answered all questions. 6. Patient verbalized understanding of all the above instructions. 7. Discussed therapeutic lifestyle changes. 2. 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 Author Type: Nurse Practitioner Type: Progress Notes Filed: 10/14/2024 11:32 Note Text: Subjective Date of encounter: 10/12/2024 Jay Barber (1995), is a 29 year old male who presents for Diabetes [...] 10/2023: 6.4%, 01/2024: 6.3%, 03/2024: 6.1%, 07/2024: 6.2%, 10/2024: 6.3% Thyroid Function Testin10/2013: TSH 2.29 (0.358-3.740), free [...] 03/2024: Creatinine 1.37 eGFR 71, 03/2024: Creatinine 1.02, 10/2024: Creatinine 1.3 eGFR 75 Urine for Microalbumin:10/2013: Microalbumin:Creatinine ratio ok,12/2015: microalbumin [...] further kidney damage., 10/2022: prot/creat ratio in the medical center, making appointment with nephrology, 07/2023: prot/creat ratio in the medical center Lipid Profile:10/2013: TC 111, HDL 42, LDL [...] results in care everywhere, 01/2020: labs in [facility], 07/2020; Alkaline Phosphatase 725 (45-117), ALT 77 (16-61), AST 163 (15-37), 12/2020: results in care everywhere., 03/2021: results In care everywhere, 12/2021: Alkaline Phosphatase 918 (38-113), bone percent 13.9%, liver percent 86.1 , 12/2022: liver function monitored by CF providers, 03/2023: in the medical center, 08/2023: LFTS in the medical center, 10/2023: LFTS in the medical center, 03/2024: liver test in epic, 10/2024: liver in the medical center Dilated Eye Exam: Patient educated to have ophthalmology visits at least once a year. 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 08/2013: New patient visit for Cystic Fibrosis related Diabetes Previous diabetes related labs from [facility] and [facility] systems reviewed prior to today's office visit. [...] patients CFRD only. self monitoring blood glucose data: see dexcom report. Average 14 day SG 177 predicted gmi 7.5%, 57% TIR 2% low range. Occasional post meal elevations. Occasional missed dosages per patient but significantly less, states 80%. Diet: can be high in carbs per patient due to CF diet to gain weight per patient.. Exercise: as tolerated History of hypoglycemia unawareness,-using dexcom now. Likes the g7 Insulin pump: not interested at this time-we discussed (more content not included)... [facility] 10-11-2024 Telephone encounter Note Left message for patient explaining his kidney function and potassium were elevated on lab results from last appointment on 10/06/24. Explained the need to hydrate and requested he repeat CMP again today- depending on results, may need to take kayexalate. [facility] Work Phone: 10-11-2024 Miscellaneous Notes Left message for patient explaining his kidney function and potassium were elevated on lab results from last appointment on 10/06/24. Explained the need to hydrate and requested he repeat CMP again today- depending on results, may need to take kayexalate. documented in this encounter [facility] 10-06-2024 History of Presen t illness Narrative Images from the original note were not included. PULMONARY MEDICINE CYSTIC FIBROSIS FOLLOW UP Patient Name: Jay Barber PRIMARY CARE PHYSICIAN: No primary care provider on file. Portions of this note were taken from the note dated 09/09/2024 ASSESSMENT AND PLAN: Jay Barber is a [...] is ABSENT We discussed the following today: ----Check CMP today ----Your PFT was 23% same as last visit ----Follow up with [facility] Kilgore [facility] on FriJan 05 with PFT 1. CYSTIC FIBROSIS PULMONARY DISEASE AND BRONCHIECTASIS Pulmonary symptoms near recent baseline, with minimal congestion and cough. Marked fatigue. FEV1% predicted today: 23% ; was 22% 09/09/24; was 24% on 08/18/24;: was 27% (0.85L) 02/25/24;; 27% (0.87L) 02/12/24; [...] ---Referral to ENT for surgical eval. Appt [phone]. 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 Ahuja in nephrology ---acute kidney injury 2o recent illness, IV antibx -last BMP March/2024 with GFR>90, and creatinine back to 1.06; Currently on IV abx. Creatinine 1.20 09/08/2024 CYSTIC FIBROSIS RELATED DIABETES ---The standard medical therapy for CFRD is subcutaneous insulin ---Patient currently on insulin therapy ---Self monitored blood glucose 3 times per day ---Patient has a CGM: yes - screening and monitoring ---Most recent hgA1c noted. 6.3 02/03/24 ---Had ophthalmology retinal exam: needs to be done ---Urine albumin/creatinine ratio done: ordered ---Following with Dr. Francis Ramirez at [facility] ---DEXA with ANNUAL SCREENING: ANNUAL LABS: Done January 2024 OGTT: NA has CFRD EYE EXAM TO CHECK FOR CATARACTS: DEXA: Needs repeat Oct 2024 LIVER US/Fibroscan: COLONOSCOPY: Start screening at age 40 years (re-screen every 5 years) in CF due to increased risk of GI carcinoma: <35 yo INTERESTED IN RESEARCH: Was the patient screened for barriers to adherence using the Daily Care Check-In? No Immunization History Administered Date(s) Administered COVID-19 original vaccine, age 12+ yr, monovalent (PrePayMe - PURPLE TOP) 12/24/2020 01/21/2021 12/05/2021 COVID-19 vaccine, age 12+ yr, bivalent (panOpen-BIONTECH) 12/04/2022 Haemophilus influenzae b (HbOC) vaccine, 4-dose [...] vaccine, quadrivalent, unspecified formulation 05/27/2012 novel influenza (H1F6-10) vaccine, PF 10/19/2009 pneumococcal (PCV7) vaccine, 7 [...] of Cystic Fibrosis last seen 4 weeks ago. Since that visit he completed course of home IV antibiotics on 09/15/24. Since then he has been feeling good. Had some right flank pain a few days ago, but it has been better. He increased fluid intake and thinks that helped/ INTERVAL HISTORY RESPIRATORY: Cough: Rare Paroxysms: rare Sputum: minimal Hemoptysis: no Chest Congestion: no Dyspnea: mild with exertion Chest Pain: no Night sweats: no Fever: no Fatigue:yes Wheezing: no Sinuses: congested due to weather changes GASTROINTESTINAL: GE Reflux: no Appetite: good Abdominal Pain:no Bowel Movement: 1/day, Diet (details): high calorie/high fat Supplements: no Vomiting: no Prolapse: None TINNITUS: no JOINT/BACK PAIN: no/see HPI Anxiety no Depression: no ENDOCRINE CFRD: Not present Without polyuria, polydipsia, nocturia or hypoglycemic symptoms 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) History of transfusion Hypertension Liver disease [facility] (current) use of insulin (HCC) Transfusion history Type 1 diabetes mellitus with hyperglycemia (HCC) PAST SURGICAL HISTORY Procedure Laterality Date PAST SURGICAL HISTORY OF splenal renal shunt to treat portal hypertension PICC LINE INSERT/CONSULT 03/08/2023 PICC LINE INSERT/CONSULT 02/03/2024 PICC LINE INSERTION (PICC TEAM) ([place]) 08/19/2024 FAMILY HISTORY Problem Relation Age of Onset [...] Linezolid Rash, GI Upset CURRENT OUTPATIENT MEDICATIONS: carvedilol (COREG) 25 mg tablet Take 1 tablet by mouth two times a day with meals. albuterol (PROVENTIL) 2.5 mg /3 mL (0.083 %) nebulizer solution Use 3 mL via nebulizer every 4 hours as needed for wheezing/shortness of breath. Inhale over 5-15 minutes elexacaftor 100 mg-tezacaftor 50 mg-ivacaftor 75 mg(d)/ivacaftor 150 mg(n) tablets (TRIKAFTA) Alternate between 2(starting 07/30) and 1 tablet every morning , hold evening dose dornase christi (PULMOZYME) 1 mg/mL nebulizer solution Inhale 2.5 mL as instructed once daily. sodium polystyrene sulfonate, with sorbitol, (SPS) 15-20 gram/60 mL susp suspension Take 120 mL by mouth as needed. Take 120 mL by mouth as needed for hyperkalemia while on home IV antibiotics lidocaine, PF, (XYLOCAINE) 10 mg/mL (1 %) soln injection 1-10 mL by INTRADERMAL route as needed. For PICC/Midline insertion Only ursodiol (ACTIGALL) 300 mg capsule take 1 capsule by mouth twice a day fluticasone-salmeterol (ADVAIR DISKUS) 500-50 mcg/dose dsdv Inhale 1 Puff as instructed two times a day. insulin glargine (LANTUS SOLOSTAR U-100 INSULIN) 100 [...] directed and REPLACE every 10 days Insulin Vaughn, Disposable, (BD YARON 2ND GEN PEN NEEDLE) 32 gauge x 5/32 5x/day cholecalciferol, Vitamin D3, (VITAMIN D3) 1,250 mcg (50,000 unit) cap capsule Take 1 capsule by mouth two times a week. CREON 36,000-114,000- 180,000 unit delayed release capsule Take 3 capsules by mouth three times a day with meals. 3 with snacks ipratropium-albuterol (DUONEB) 0.5 mg-3 mg(2.5 mg base)/3 mL nebu Inhale 3 mL as instructed every 4 hours as needed for wheezing/shortness of breath. Blood-Glucose Meter monitoring kit For monitoring sugars 3x/day VITAMIN D2 1,250 mcg (50,000 unit) capsule Take 1 capsule by mouth two times a week. Blood-Glucose Meter,Continuous (DEXCOM G7 FARROWING MANAGER) misc For monitoring sugars glucagon (BAQSIMI) 3 mg/actuation nasal spray Use 1 [place] in the nose as needed. May repeat [...] daily. Nebulizers 1 Each three times daily. tranexamic acid (LYSTEDA) 650 mg tablet Take 2 tablets by mouth three times a day for 5 days. montelukast (SINGULAIR) 10 mg tablet Take 1 tablet by mouth daily at bedtime. REVIEW OF SYSTEMS CONSTITUTIONAL: No acute distress. [...] was negative. PHYSICAL EXAMINATION: VITAL SIGNS: BP 128/86 Pulse 79 Resp 17 Wt 83 lb 8.9 oz (37.9kg) SpO2 94% Last 5 Encounter Wt Readings: Date: Wt: 09/09/2024 38.3 kg (84 lb 7 oz) 08/18/2024 38.7 kg (85 lb 5.1 oz) 07/06/2024 42.4 kg (93 lb 8 oz) 05/05/2024 43.1 kg (95 lb) 05/05/2024 43.2 kg (95 lb 3.8 oz) GENERAL APPEARANCE: He Is well appearing, alert, in no acute distress, well-hydrated, INTEGUMENTARY: skin color, texture, turgor normal, no rashes or lesions; EYES: Anicteric sclera. Pupils are equally round and reactive to light. Extraocular movements are intact. ENT: Mild nasal erthema; mild congestion of B turbinates; +cobblestoning. mild HEME/LYMPH: Supple neck, no adenopathy; thyroid symmetric, normal size, no bruits RESPIRATORY: Good air exchange. NO retractions. Rare fine crackles ERIC posteriorly. CARDIOVASCULAR: No edema. RRR without murmur, gallop, or rubs. No ectopy GI: Normal abdominal exam, Abdomen soft, non-tender. Bowel sounds normal. No masses, organomegaly MUSCULOSKELETAL: 2+ clubbing B; No arthritis. No deformities or cyanosis. Gait normal. PSYCH:no signs of depression or anxiety Neuro: Non-focal. Sensation grossly intact. DATA: Diagnostic tests reviewed for today's visit were personally reviewed by me: Sputum culture results and Most recent labs LAST LAB RESULTS: ---Reviewed in [facility] CBC with diff: WBC 5.22 09/13/2024 RBC 2.91 09/13/2024 Hemoglobin 8.9 09/13/2024 Hematocrit 27.1 09/13/2024 MCV 93.1 09/13/2024 MCH 30.6 09/13/2024 MCHC 32.8 09/13/2024 RDW-CV 15.6 09/13/2024 Platelet Count 214 09/13/2024 MPV 9.9 09/13/2024 Neutrophils % 40.8 09/13/2024 Lymph% 28.4 09/13/2024 Thomas% 11.3 09/13/2024 Eosin% 17.4 09/13/2024 Baso% 1.9 09/13/2024 Abs Neut (Segs + Bands) 2.13 09/13/2024 Abs Thomas 0.59 09/13/2024 Abs Eosin 0.91 09/13/2024 Abs Baso 0.10 09/13/2024 Glucose (mg/dL) Date Value 09/16/2024 91 12/08/2015 113 Potassium Date Value 09/16/2024 4.3 mmol/L 02/24/2024 4.9 Sodium Date Value 09/16/2024 133 mmol/L 12/08/2015 139 mEq/L Chloride Date Value 09/16/2024 100 mmol/L 12/08/2015 102 mEq/L CO2 Date Value 09/16/2024 29 mmol/L 12/08/2015 31 mEq/L Creatinine Date Value 09/16/2024 1.23 mg/dL 02/24/2024 1.60 MG/DL BUN (mg/dL) Date Value 09/16/2024 27 12/08/2015 16 Anion Gap Date Value 09/16/2024 4 mmol/L 12/08/2015 11 Calcium (mg/dL) Date Value 12/08/2015 9.3 Calcium, Total (mg/dL) Date Value 09/16/2024 8.6 Protein, Total (g/dL) Date Value 09/13/2024 7.2 12/08/2015 9.5 Albumin (g/dL) Date Value 09/13/2024 2.2 12/08/2015 3.4 Bilirubin, Total Date Value 09/13/2024 0.4 mg/dL 02/24/2024 0.70 Alkaline Phosphatase Date Value 09/13/2024 1,071 U/L 02/24/2024 915 AST Date Value 09/13/2024 136 U/L 02/24/2024 163 ALT Date Value 09/13/2024 69 U/L 02/24/2024 96 Vitamin D 25 Hydroxy (ng/mL) Date Value 02/27/2024 32.4 ] Hemoglobin A1C (%) Date Value 02/03/2024 6.3 07/03/2023 6.9 03/08/2023 7.7 11/05/2022 8.4 2022 8.6 12/08/2015 8.3 Hemoglobin A1c (%) Date Value 05/22/2021 7.4 09/11/2020 6.4 12/30/2019 6.9 Hemoglobin A1C (POCT) (%) Date Value 07/06/2024 6.2 03/09/2024 6.1 11/20/2023 6.4 12/24/2021 7.5 09/10/2021 7.4 SPIROMETRY: Reviewed in [facility] MICROBIOLOGY: Reviewed MICROBIOLOGY SNAPSHOT Written and verbal health teaching given to patient, patient verbalizes understanding and agrees with treatment plan. I spent a total of 45 minutes on the date of the service which included preparing to see the patient, [id number]-in-[id number] patient care, completing clinical documentation, performing a medically appropriate examination, ordering medications, tests, or procedures, independently interpreting results (not separately reported), communicating results to the patient/family/caregiver, and care coordination (not separately reported). Electronically Signed: Myrick CNP October 06, 2024 documented in this encounter [facility] 10-06-2024 History of Presen t illness Narrative PULM FUNCTION: Provider: Sally Schneider APRN.CNP Spirometry: 1 documented in this encounter [facility] 10-04-2024 History of Presen t illness Narrative CF Pre-Clinic Checklist PRE-TRANSPLANT Last CF clinic visit date: 09/09/24 with Sally Microbiology: b. 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/ 1898+1G>Q (01/01/1996 - in [...] 12 months: -Home IV abx: 08/19/24 - 09/15/24 -->IV Meropenem and IV Vancomycin -Hospital Admit: 02/03/24 - 02/16/24 for CF Exacerbation and Upper GIB -> treated with IV Meropenem, Minocycline and Vancomycin while inpatient -> discharged on Home IV abx IV Meropenem and IV Vancomycin through 02/23/24 -Hospital Admit: 07/02/23-07/29/23 treated with Vancomycin through 07/06, Minocycline through 07/22, and Meropenum through 07/24 (not discharged home on any IV abx) -Hospital Admit: 03/07/23-03/11/23 -> discharged on Home IV abx Vanc and Larisa through 04/01/23 FEV1%: 22% on 09/09/24 FEV1%trend: 24% on 08/18/24 ; 30% on 05/05/24 ; 27% on 02/25/24; 27% on 02/12/24 ; 29% on 09/24/23 ; 33% on 09/24/23; 36% on 07/24/23 ; 23% on 07/17/23 ; 23% on 07/10/23 ; 23% on 07/02/23 BMI: 15.44 kg/m2 BMI Trend: decreased with exacerbation RD ANNUAL VISIT Needed: completed 05/05/24 RT ANNUAL VISIT Needed: completed 05/05/24 SW ANNUAL VISIT Needed:completed 05/05/24 Mental health screen: completed 05/05/24 ANNUAL Labs Needed: Completed on 02/27/24 Last OGTT/CFRD: +CFRD -> Follows with Tyler Ramirez CNP-last OV 07/06/24 Dexa: NEEDS - Last completed on 09/24/23 -> Lowest T-score is -3.1 in left femoral neck T/Z = > -1.0 - every 5 years T/Z = -1.0 to -2.0 - every 2-4 years T/Z = < -2.0 - every 1 year Colonoscopy (age > 35) N/A WNL-every 5 years Abnormal-every 3 or sooner Abdominal Ultra Sound: MRI BOWLING/MARYAM completed on 05/07/24 -> Multifocal segmental discontinuous bile duct dilation as [...] hospital discharge EPIC/Phone Messages since last visit: 09/10 nurse contacted to increase fluids due to elevated BUN/Cr 09/15 PICC pulled, verified he took one single dose of kayexalate and told to get repeat BMP (done 09/16) 09/23 script questions for albuterol nebs and carvedilol discussed 09/28 pharmacy verified duonebs were in stock Other issues: Plan for visit: - Tuckerman ordered and scheduled - follow up after completing home IV abx - Needs to complete DEXA (order in, add on to October visit, message sent to scheduling) documented in this encounter [facility] 09-28-2024 Telephone encounter Note Pharmacy calling for clarification re: Duoneb vs albuterol neb. Patient yulissa requested albuterol neb prescription as pharmacy did not have Duonebs in stock. Spoke with pharmacist today and they stated they now have the Duonebs in stock--they were inquiring if we wanted to switch to the albuterol nebs. Let them know they can continue with Duoneb prescription now that they have in stock and disregard albuterol nebs Fernando Zhang RD [facility] Work Phone: 09-28-2024 Miscellaneous Notes Pharmacy calling for clarification re: Duoneb vs albuterol neb. Patient yulissa requested albuterol neb prescription as pharmacy did not have Duonebs in stock. Spoke with pharmacist today and they stated they now have the Duonebs in stock--they were inquiring if we wanted to switch to the albuterol nebs. Let them know they can continue with Duoneb prescription now that they have in stock and disregard albuterol nebs Fernando Zhang RD documented in this encounter [facility] 09-27-2024 Telephone encounter Note Spoke with patient over the phone and confirmed was prescriptions he needed. Sent to Dr Pinon to fill Fernando Zhang RD [facility] Work Phone: 09-27-2024 Miscellaneous Notes Spoke with patient over the phone and confirmed was prescriptions he needed. Sent to Dr Turowski to fill Fernando Zhang RD documented in this encounter [facility] 09-16-2024 Note Addended by: SALLY SCHNEIDER on: 09/16/2024 10:27 AM Modules accepted: Orders [facility] 09-16-2024 Miscellaneous Notes Addended by: SALLY SCHNEIDER on: 09/16/2024 10:27 AM Modules accepted: Orders Verification that pts PICC line was pulled at [facility] today. Pt noted that he did take a single dose of the kayexalate yesterday. Communicated this with provider. Provider requested BMP today. SW notified pt and team. documented in this encounter [facility] 09-15-2024 Telephone encounter Note Verification that pts PICC line was pulled at [facility] today. Pt noted that he did take a single dose of the kayexalate yesterday. Communicated this with provider. Provider requested BMP today. SW notified pt and team. [facility] 09-15-2024 Telephone encounter Note Images from the original note were not included. [facility] 09-15-2024 Miscellaneous Notes Images from the original note were not included. Images from the original note were not included. documented in this encounter [facility] 09-15-2024 Telephone encounter Note Images from the original note were not included. [facility] 09-10-2024 Telephone encounter Note Reviewed pt's most recent lab results with him over the phone. Instructed him to increase water intake over the weekend as his BUN/Crew Member are somewhat elevated. Pt agreeable. Patient has not yet heard back from [facility] regarding PICC removal - will re-fax orders to them again today. [facility] Work Phone: 09-10-2024 Miscellaneous Notes Reviewed pt's most recent lab results with him over the phone. Instructed him to increase water intake over the weekend as his BUN/Crew Member are somewhat elevated. Pt agreeable. Patient has not yet heard back from [facility] regarding PICC removal - will re-fax orders to them again today. documented in this encounter [facility] 09-09-2024 History of Presen t illness Narrative Images from the original note were not included. PULMONARY MEDICINE CYSTIC FIBROSIS FOLLOW UP Home IV Antibiotics Patient Name: Jay Barber PRIMARY CARE PHYSICIAN: No primary care provider on file. Portions of this note were taken from the note dated 08/18/2024 ASSESSMENT AND PLAN: Jay Barber is a [...] abx therapy targeting respiratory tract infection with b. cepacia. Antibiotic Regimen and Monitoring ---Start Date: 08/19 ---The patient is being treated with Intravenous 08/19/2024 ---inhaled c[place]. ---Side effects from IV antibiotic therapy include None ---Lab monitoring is being done and -------Labs in [facility] ---No significant changes in creatinine, LFTs, or blood counts. Has had hyperkalemia. ---No issues with IV access Lung Function ---Baseline FEV1 is 30 % predicted. ---Pre-treatment FEV1 was 24 % predicted. ---FEV1 today is 22 % predicted. Anti-inflammatory therapy and Airway obstruction ---Continue dornase QD ---Exercise regimen: walking Nutritional Interventions ---Weight is stable ---Supplements none The plan is to continue IV antibiotic therapy (with close monitoring for toxicity), anti-inflammatory therapy, and treatment of airway obstruction. ---Reviewed patients chronic outpatient regimen and changes include none. We discussed the following today: ---Continue IV antibiotics through next 09/15 ---Get labs tomorrow and again on Friday ----We will arrange PICC removal at [facility] on 09/15 ----Refill sent for kayexelate as needed for hyperkalemia ---- Follow up FriOct 06 at 1 pm with PFT 1. CYSTIC FIBROSIS PULMONARY DISEASE AND BRONCHIECTASIS [...] ---Referral to ENT for surgical eval. Appt [phone]. 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 Ahuja in nephrology ---acute kidney injury 2o recent illness, IV antibx -last BMP March/2024 with GFR>90, and creatinine back to 1.06; Currently on IV abx. Creatinine 1.20 09/08/2024 CYSTIC FIBROSIS RELATED DIABETES ---The standard medical therapy for CFRD is subcutaneous insulin ---Patient currently on insulin therapy ---Self monitored blood glucose 3 times per day ---Patient has a CGM: yes - screening and monitoring ---Most recent hgA1c noted. 6.3 02/03/24 ---Had ophthalmology retinal exam: needs to be done ---Urine albumin/creatinine ratio done: ordered ---Following with Dr. Francis Ramirez at [facility] ---DEXA with CHIEF COMPLAINT: Cystic Fibrosis HISTORY OF PRESENT ILLNESS: Jay Barber is a 29 year old male, here for follow-up of Cystic Fibrosis Home IV abx therapy; starting to feel better. His appetite and fatigue has started to improve theh last couple days. Cough is leather drier. Rare sputum production. Dyspnea with exertion, but no shortness of breath at resst. Side effects from IV abx therapy: none INTERVAL HISTORY RESPIRATORY: Cough: occasional Paroxysms: occasional Sputum: minimal Hemoptysis: no Chest Congestion: yes Dyspnea: with exertion Chest Pain: no Night sweats: no Fever: no Fatigue:yes improving Wheezing: no Sinuses: congestio GASTROINTESTINAL: GE Reflux: no Appetite: fair but improving Abdominal Pain:no Bowel Movement: 2/day, Diet (details): high calorie/high fat Supplements: none Vomiting: no Prolapse: None TINNITUS: yes JOINT/BACK PAIN: no/no Anxiety/Depression: no/no ENDOCRINE CFRD: Not present Without polyuria, polydipsia, nocturia or hypoglycemic symptoms 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) History of transfusion Hypertension Liver disease penitentiary (current) use of insulin (HCC) Transfusion history Type 1 diabetes mellitus with hyperglycemia (HCC) PAST SURGICAL HISTORY Procedure Laterality Date PAST SURGICAL HISTORY OF splenal renal shunt to treat portal hypertension PICC LINE INSERT/CONSULT 03/08/2023 PICC LINE INSERT/CONSULT 02/03/2024 PICC LINE INSERTION (PICC TEAM) (OK) 08/19/2024 FAMILY HISTORY Problem Relation Age of Onset [...] Linezolid Rash, GI Upset CURRENT OUTPATIENT MEDICATIONS: lidocaine, PF, (XYLOCAINE) 10 mg/mL (1 %) soln injection 1-10 mL by INTRADERMAL route as needed. For PICC/Midline insertion Only ursodiol (ACTIGALL) 300 mg capsule take 1 [...] directed and REPLACE every 10 days Insulin Vaughn, Disposable, (BD YARNO 2ND GEN PEN NEEDLE) 32 gauge x [...] times a week. Blood-Glucose Meter,Continuous (DEXCOM G7 FARROWING MANAGER) misc For monitoring sugars glucagon (BAQSIMI) 3 mg/actuation nasal spray Use 1 [place] in the nose as needed. May repeat [...] daily. Nebulizers 1 Each three times daily. sodium polystyrene sulfonate, with sorbitol, (SPS) 15-20 gram/60 mL susp suspension Take 120 mL by mouth as needed. Take 120 mL by mouth as needed for hyperkalemia while on home IV antibiotics tranexamic acid (LYSTEDA) 650 mg tablet Take 2 tablets by mouth three times a day for 5 days. montelukast (SINGULAIR) 10 mg tablet Take 1 tablet by mouth daily at bedtime. REVIEW OF SYSTEMS CONSTITUTIONAL: No acute distress. HEENT:Pos for sinusitis; See HPI RESPIRATORY: Positive for cough. See HPI CARDIOVASCULAR: Neg for chest pain GASTROINTESTINAL: Neg for abdominal discomfort, No blood in stools or black stools MUSCULOSKELETAL: Neg for synovitis NEUROLOGIC:Negative for focal numbness or weakness, SKIN:Negative for rash. PSYCHIATRIC: Negative for mood disorder The remainder of the ROS was negative. PHYSICAL EXAMINATION: VITAL SIGNS: BP 130/80 Pulse 99 Temp 98.3 Resp 18 Wt 84 lb 7 oz (38.3kg) SpO2 93% Last 5 Encounter Wt Readings: Date: Wt: 09/09/2024 38.3 kg (84 lb 7 oz) 08/18/2024 38.7 kg (85 lb 5.1 oz) 07/06/2024 42.4 kg (93 lb 8 oz) 05/05/2024 43.1 kg (95 lb) 05/05/2024 43.2 kg (95 lb 3.8 oz) GENERAL APPEARANCE: He Is well appearing, alert, in no acute distress, well-hydrated, INTEGUMENTARY: skin color, texture, turgor normal, no rashes or lesions; PICC in Left arm . EYES: Anicteric sclera. Pupils are equally round and reactive to light. Extraocular movements are intact. ENT: Mild nasal erthema; mild congestion of B turbinates; +cobblestoning. mild HEME/LYMPH: Supple neck, no adenopathy; thyroid symmetric, normal size, no bruits RESPIRATORY: Good air exchange. No retractions. Crackles on left. No wheeze. CARDIOVASCULAR: No edema. RRR without murmur, gallop, or rubs. No ectopy GI: Normal abdominal exam, Abdomen soft, non-tender. Bowel sounds normal. No masses, organomegaly MUSCULOSKELETAL: 2+ clubbing B; No arthritis. No deformities or cyanosis. Gait normal. PSYCH:no signs of depression or anxiety Neuro: Non-focal. Sensation grossly intact. DATA: Diagnostic tests reviewed for today's visit, imaging was personally reviewed by me: Most recent labs LAST LAB RESULTS: ---Reviewed in [facility] Glucose (mg/dL) Date Value 09/08/2024 112 12/08/2015 113 Potassium Date Value 09/08/2024 4.3 mmol/L 02/24/2024 4.9 Sodium Date Value 09/08/2024 133 mmol/L 12/08/2015 139 mEq/L Chloride Date Value 09/08/2024 99 mmol/L 12/08/2015 102 mEq/L CO2 Date Value 09/08/2024 30 mmol/L 12/08/2015 31 mEq/L Creatinine Date Value 09/08/2024 1.08 mg/dL 02/24/2024 1.60 MG/DL BUN (mg/dL) Date Value 09/08/2024 18 12/08/2015 16 Anion Gap Date Value 09/08/2024 4 mmol/L 12/08/2015 11 Calcium (mg/dL) Date Value 12/08/2015 9.3 Calcium, Total (mg/dL) Date Value 09/08/2024 8.3 Protein, Total (g/dL) Date Value 09/08/2024 7.7 12/08/2015 9.5 Albumin (g/dL) Date Value 09/08/2024 2.4 12/08/2015 3.4 Bilirubin, Total Date Value 09/08/2024 0.6 mg/dL 02/24/2024 0.70 Alkaline Phosphatase Date Value 09/08/2024 1,010 U/L 02/24/2024 915 AST Date Value 09/08/2024 68 U/L 02/24/2024 163 ALT Date Value 09/08/2024 35 U/L 02/24/2024 96 CBC with diff: WBC 6.24 09/07/2024 RBC 3.22 09/07/2024 Hemoglobin 9.7 09/07/2024 Hematocrit 29.6 09/07/2024 MCV 91.9 09/07/2024 MCH 30.1 09/07/2024 MCHC 32.8 09/07/2024 RDW-CV 15.8 09/07/2024 Platelet Count 205 09/07/2024 MPV 8.6 09/07/2024 Neutrophils % 42.9 09/07/2024 Lymph% 31.7 09/07/2024 Thomas% 11.5 09/07/2024 Eosin% 11.1 09/07/2024 Baso% 2.6 09/07/2024 Abs Neut (Segs + Bands) 2.68 09/07/2024 Abs Thomas 0.72 09/07/2024 Abs Eosin 0.69 09/07/2024 Abs Baso 0.16 09/07/2024 SPIROMETRY: Reviewed in [facility] SPIROMETRY BASELINE ONLY ([id number]) - ordered on 09/09/24 No textual results for order. SPIROMETRY BASELINE ONLY ([id number]) - ordered on 08/18/24 No textual results for order. SPIROMETRY BASELINE ONLY ([id number]) - ordered on 05/05/24 No textual results for order. MICROBIOLOGY: Reviewed MICROBIOLOGY SNAPSHOT Written and verbal health teaching given to patient, patient verbalizes understanding and agrees with treatment plan. Electronically Signed: Sally Schneider CNP September 09, 2024 documented in this encounter [facility] 09-09-2024 History of Presen t illness Narrative PULM FUNCTION: Provider: Sally Schneider APRN.CNP Spirometry: 1 System: [facility] - [id number] documented in this encounter [facility] 09-03-2024 History of Presen t illness Narrative CF Pre-Clinic Checklist PRE-TRANSPLANT Last CF clinic visit date: 08/18/[address] Kilgore Microbiology: b. 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/ 1898+1G>Q ([birth year]1994 - in [...] 08/19/24 - current (tentative end date of 09/09/24) -->IV Meropenem and IV Vancomycin -Hospital Admit: 02/03/24 - 02/16/24 for CF Exacerbation and Upper GIB -> treated with IV Meropenem, Minocycline and Vancomycin while inpatient -> discharged on Home IV abx IV Meropenem and IV Vancomycin through 02/23/24 [...] completed 05/05/24 SW ANNUAL VISIT Needed:completed 05/05/24 Mental health screen: completed 05/05/24 ANNUAL Labs Needed: Completed on 02/27/24 Last OGTT/CFRD: +CFRD -> Follows with Tyler Ramirez, [employer]-last OV 07/06/24 Dexa: NEEDS - Last completed on 09/24/23 -> Lowest T-score is -3.1 in left femoral neck T/Z = > -1.0 - every 5 years T/Z = -1.0 to -2.0 - every 2-4 years T/Z = < -2.0 - every 1 year Colonoscopy (age > 35) N/A WNL-every 5 years Abnormal-every 3 or sooner Abdominal Ultra Sound: MRI BOWLING/MARYAM completed on 05/07/24 -> Multifocal segmental discontinuous bile duct dilation as [...] hospital discharge EPIC/Phone Messages since last visit: Other issues: Plan for visit: - Home IV abx f/u -> on IV Meropenem and IV Vancomycin 08/19/24 - 09/09/24 via [facility] - Had issues with hyperkalemia while doing home IV abx - rough timeline of events: 08/18/24: potassium level 4.9 (day before starting home IV abx) 08/19/24: started home IV abx 08/27/24: potassium level 6.3 08/29/24: took 30g of kayexalate 08/31/24: potassium level 6.4 ; was not able to get insurance auth quickly for additional kayexalate -> 08/31/24: admitted to [facility] and given K cocktail (kayexalate, calcium gluconate, insulin) 09/02/24: discharged home with potassium level of 5.4 09/03/24: outpatient labs done -> potassium level 4.6 and magnesium level 1.4 -> ordered 4g magnesium sulfate through [facility] - Plan is for labs again on Friday09/06/24 and if WNL, again on 09/09/24 while seeing us here for appt - Needs to complete DEXA - add on to this appt ? documented in this encounter [facility] 09-03-2024 Telephone encounter Note Imported external medical records from [facility] (dated 09/03/24). Please allow time delay for documents to appear in [email or web address] (Scanned Documents Tab). [facility] 09-03-2024 Miscellaneous Notes Imported external medical records from [facility] (dated 09/03/24). Please allow time delay for documents to appear in Epic (Scanned Documents Tab). documented in this encounter [facility] 09-02-2024 Telephone encounter Note Patient called back and provided update - states him B/P and potassium level have improved and he is discharging home today. Discussed plan to extend his home IV abx through next , 09/09/24. Explained to patient that he will need to get his labs tomorrow and again next Friday. He will also need to see Sally Schneider in clinic for appt next . Pt understands and agreeable to plan. Will have [employer] request pt's medical records from [facility] and assist with getting him scheduled for next , 09/09/24. Called [facility] pharmacy and extended his IV medications- they will be delivered to patient today. [facility] 09-02-2024 Miscellaneous Notes Patient called back and provided update - states him B/P and potassium level have improved and he is discharging home today. Discussed plan to extend his home IV abx through next , 09/09/24. Explained to patient that he will need to get his labs tomorrow and again next Friday. He will also need to see Sally Schneider in clinic for appt next . Pt understands and agreeable to plan. Will have [employer] request pt's medical records from [facility] and assist with getting him scheduled for next , 09/09/24. Called [facility] pharmacy and extended his IV medications- they will be delivered to patient today. documented in this encounter [facility] 09-02-2024 Note [facility] Medical Records Department [address] [place] [address] Discharge Summary 09/02/24 1014 MR#: [id number] Acct: [id number] Name: JAY BARBER Rep #: [id number] : 1995 29 From: Anahi Wilder MD PCP: Care Physician,No Primary Status:DIS IN Location: [place] [id number] Providers Date of Admission: 09/01/24 Date of Discharge: 09/02/24 Primary Care Physician: No Primary Care Phys Reason For Visit: HYPERKALEMIA WITH EKG CHANGES Diagnosis Discharge Diagnosis (1) Acute hyperkalemia: Status: Acute Code(s): E87.5 - Hyperkalemia (2) Cystic fibrosis: Status: Chronic Code(s): E84.9 - Cystic fibrosis, unspecified (3) Type 1 diabetes mellitus: Status: Chronic Code(s): E10.9 - Type 1 diabetes mellitus without complications Plan #Hyperkalemia * lance is known to have cystic fibrosis. However, cystic fibrosis is usually associated with hypokalemia as well as hyponatremia and hypochloremia and not hyperkalemia. * He did receive Kayexalate yesterday. Potassium is still elevated at 5.4 today. Will give another dose of 30 gram of Kayexalate. * He denies taking a diet high in potassium and denies taking bananas, lots of carrots and sweet potatoes and any leafy greens and high quantities than usual. * He states this hyperkalemia is not new for him. If it persist will consult nephrology to see if they can figure out an etiology. * Trend potassium * #Recurrent pneumonia in the setting of cystic fibrosis * Was recently diagnosed with pneumonia and has been on vancomycin and meropenem for about 2 weeks. Follows up at [facility]. Has a PICC line in place. * Plan was for him to be on the antibiotics for total of 3 to 4 weeks. Will continue IV vancomycin and meropenem. #Type 1 diabetes mellitus with hyperglycemia * On Lantus 8 units nightly. Insulin sliding scale. Accu-Cheks ACHS. * #Hypertension: * On Coreg. IV hydralazine as needed. * Blood pressure was elevated on admission with systolic in the 190s to 200s. #Chronic pancreatic insufficiency: On Creon replacement Nicotine dependence: Counseled to quit. Nicotine patch GERD: On PPI DVT prophylaxis: Low risk. Encourage ambulation. Medications at Discharge Home Medications elexacaftor 100 mg-tezacaf 50mg-ivacaf 75mg(d)/ivacaf 150mg(n) tablets 2 ea PO DAILY CF 11/14/19 jmynrb-lhfvjkvr-yiwcbza 36,000-114,000-180,000 unit capsule,delay rel 2 - 3 cap PO TIDCM CF 11/14/19 insulin glargine 100 unit/mL (3 mL) subcutaneous pen 8 unit SQ QHS DM 07/04/20 insulin lispro 100 unit/mL subcutaneous pen See Protocol SQ TIDCM diabetes 07/04/20 tobramycin with nebulizer 300 mg/5 mL solution for nebulization 300 mg IH BID SOB 07/04/20 albuterol sulfate 90 mcg/actuation aerosol inhaler (Ventolin HFA) 2 puff inhalation Q4H PRN PRN wheezing 08/31/24 blood sugar diagnostic (PrestodiagTouch Verio test strips) 08/31/24 blood-glucose sensor (Postling G7 Sensor device) 08/31/24 carvedilol 25 mg tablet 25 mg PO BID heart/ blood pressure 08/31/24 diphenhydramine HCl 50 mg/mL injection solution 50 mg IV Q12H vancomycin sensitivity 08/31/24 dornase christi 1 mg/mL solution for inhalation (Pulmozyme) 2.5 mg inhalation DAILY breathing 08/31/24 ipratropium 0.5 mg-albuterol 3 mg (2.5 mg base)/3 mL nebulization soln 3 ml inhalation Q4H PRN PRN wheezing 08/31/24 meropenem 1 gram intravenous solution 1 g IV Q12H infection 08/31/24 pantoprazole 40 mg tablet,delayed release 40 mg PO BID GERD 08/31/24 polyethylene glycol 3350 17 gram/dose oral powder 17 g PO DAILY PRN constipation 08/31/24 sodium chloride 0.9 % 1 ea IV Q12H PRN flush after abx 08/31/24 vancomycin 500 mg intravenous solution 300 mg PO Q12H infection 08/31/24 Hospital Course Operations None Procedures None Summary of Care Provided Minutes Spent on Discharge: 45 Hospital Course: Patient is a 29-year-old male with a past medical history as outlined including cystic fibrosis who was admitted through the ED on 08/31/2024 for hyperkalemia. He usually followed up at [facility] for his cystic fibrosis and was being managed for recurrent pneumonia. He was on IV vancomycin and meropenem at home via PICC line. His blood work was done as routine surveillance for him being on the antibiotics and potassium was noted to be elevated. Potassium was 5.7 so he was told to come into the ED. Repeat potassium was 5.7 in the ED. EKG showed peaked T waves but no other hyperkalemic changes. He was treated with the potassium depleting cocktail and given Kayexalate. He was admitted to be managed for hyperkalemia. Patient denied eating any diet high in potassium and was not on any potassium sparing medications or supplements. He was given Kayexalate. His potassium trended down and was 4.7 on day of discharge. Patient was felt well and was discharged home on 09/02/2024. Of note hospital course was complicate (more content not included)... [facility] 09-01-2024 Telephone encounter Note I spoke to Sydni from [facility] and I advised her that the patient does need another fill of this medication. She stated that she is still getting a denied claim. I provided her with the approved prior authorization number and she was going to call [employer] to see what needs to be done on the pharmacies end to get the claim to be approved. She stated she would call me back if she has any further problems. [facility] 09-01-2024 Miscellaneous Notes I spoke to Sydni from [facility] and I advised her that the patient does need another fill of this medication. She stated that she is still getting a denied claim. I provided her with the approved prior authorization number and she was going to call [email or web address] to see what needs to be done on the pharmacies end to get the claim to be approved. She stated she would call me back if she has any further problems. Sydni from [facility] called to confirm if the pt needs the second order of Sodium polystyrene sulfonate and if he does it requires a PA. She stated the pt picked up the first order already. PH: [phone] documented in this encounter [facility] 09-01-2024 Telephone encounter Note Sydni from [facility] called to confirm if the pt needs the second order of Sodium polystyrene sulfonate and if he does it requires a PA. She stated the pt picked up the first order already. PH: [phone] [facility] 08-31-2024 Telephone encounter Note Pt is currently in ER and the ER doc (Dr. Bal) there wants to talk about pt's CF [facility] 08-31-2024 Miscellaneous Notes Pt is currently in ER and the ER doc (Dr. Bal) there wants to talk about pt's CF documented in this encounter [facility] 08-31-2024 Telephone encounter Note Called patient and instructed him to go to the ED since we still have not received approval for the kayexalate. Explained to him that he will need to be on an ECG monitor and will need to receive kayexalate while he is there. Called [facility]'s ED and notified them of pt's plan to come in. [facility] Work Phone: 08-31-2024 Miscellaneous Notes Called patient and instructed him to go to the ED since we still have not received approval for the kayexalate. Explained to him that he will need to be on an ECG monitor and will need to receive kayexalate while he is there. Called [facility]'s ED and notified them of pt's plan to come in. New prior authorization needed - the prior auth completed yesterday only allowed for a single dose a month. meeting coordinator submitted new prior auth around 11 am this morning. Let patient know that if we do not receive approval within the next hour, he will need to go to the ED. Spoke with patient this morning regarding result. He is currently asymptomatic. Pt states he took the kayexalate yesterday around 8 pm. The potassium result of 6.4 is from this morning's lab work that was done around 8 am (12 hours later). Discussed with both Sally Schneider and Dr. Pinon. Additional 30 g of kayexalate ordered at this time. Instructed patient to citrus picker as soon as possible and that he must do repeat CMP again today 6 hours after taking it. If potassium level does not improve, patient understands he needs to go to the emergency room. Patient s identity has been confirmed by name and birthdate: Yes Call received from lab at 0918 AM to report a critical value for Potassium of 6.4. Verified and read back to Tamela Wray. Abigail Schneider [employer] was notified of the result at 0920 AM. Ed Roberts RN documented in this encounter [facility] 08-31-2024 Telephone encounter Note New prior authorization needed - the prior auth completed yesterday only allowed for a single dose a month. meeting coordinator submitted new prior auth around 11 am this morning. Let patient know that if we do not receive approval within the next hour, he will need to go to the ED. [facility] 08-31-2024 Telephone encounter Note Spoke with patient this morning regarding result. He is currently asymptomatic. Pt states he took the kayexalate yesterday around 8 pm. The potassium result of 6.4 is from this morning's lab work that was done around 8 am (12 hours later). Discussed with both Sally Schneider and Dr. Pinon. Additional 30 g of kayexalate ordered at this time. Instructed patient to citrus picker as soon as possible and that he must do repeat CMP again today 6 hours after taking it. If potassium level does not improve, patient understands he needs to go to the emergency room. [facility] 08-31-2024 Telephone encounter Note Patient s identity has been confirmed by name and birthdate: Yes Call received from lab at 0918 AM to report a critical value for Potassium of 6.4. Verified and read back to Tamela Wray. Abigail Schneider [employer] was notified of the result at 0920 AM. Ed Roberts RN [facility] 08-30-2024 Telephone encounter Note Sent patient message and left voicemail explaining to hold off on taking the Kayexalate until he completes his lab work today. Will first reassess his potassium level before having him take the Kayexalate. [facility] Work Phone: 08-30-2024 Miscellaneous Notes Sent patient message and left voicemail explaining to hold off on taking the Kayexalate until he completes his lab work today. Will first reassess his potassium level before having him take the Kayexalate. documented in this encounter [facility] 08-27-2024 Telephone encounter Note Called and spoke with patient regarding hyperkalemia (6.1) resulted on pt's CMP this morning . Explained that kayexalate will be sent to his preferred pharmacy and needs to be taken as soon as able and then will need a repeat BMP 6 hour afterwards. Pt agreeable to plan. [facility] Work Phone: 08-27-2024 Miscellaneous Notes Called and spoke with patient regarding hyperkalemia (6.1) resulted on pt's CMP this morning . Explained that kayexalate will be sent to his preferred pharmacy and needs to be taken as soon as able and then will need a repeat BMP 6 hour afterwards. Pt agreeable to plan. documented in this encounter [facility] 08-25-2024 Telephone encounter Note Rep called needing clarification regarding pt's vancomycin IV that Dr. Schneider rx'ed. He would like a clinical staff member to call him back. [facility] 08-25-2024 Miscellaneous Notes Rep called needing clarification regarding pt's vancomycin IV that Dr. Schneider rx'ed. He would like a clinical staff member to call him back. documented in this encounter [facility] 08-25-2024 Telephone encounter Note 3:15 PM [...] another vanco level order for Friday in [facility] SW spoke with pt, who had already spoken to [facility] about the plan. Pt relayed plan to this for verification. Pt to obtain labs on Friday with vanco level. 8:45 am: Sent pt text message re: time of vancomycin dosing before 8:30 am lab draw yesterday. Vanco dose at 8 pm Friday prior to Mon am lab draw. Notified [employer]. Pt asking about saline due to feeling dry. Pt aware and expecting delivery of meds tomorrow. [employer] ordered and orders were faxed to [facility] [phone]. [facility] 08-25-2024 Miscellaneous Notes 3:15 PM From Sally Schneider, I talked to the pharmacist about Jay's vanco level. We are lowering his dose to 300mg every 12 hours Can you please let him know and he will need to go and get another vanco level drawn on Friday before he gets Friday morning dose I put another vanco level order for Friday in [facility] SW spoke with pt, who had already spoken to [facility] about the plan. Pt relayed plan to this for verification. Pt to obtain labs on Friday with vanco level. 8:45 am: Sent pt text message re: time of vancomycin dosing before 8:30 am lab draw yesterday. Vanco dose at 8 pm Friday prior to Mon am lab draw. Notified BUGGY LADLE TENDER. Pt asking about saline due to feeling dry. Pt aware and expecting delivery of meds tomorrow. BUGGY LADLE TENDER ordered and orders were faxed to [facility] [phone]. documented in this encounter [facility] 08-20-2024 History of Presen t illness Narrative CF Pre-Clinic Checklist PRE-TRANSPLANT Last CF clinic visit date: 08/18/24 [place] at [place] Microbiology: b. Cepacia complex; MRSA Lab Results [...] completed 05/05/24 SW ANNUAL VISIT Needed:completed 05/05/24 Mental health screen: completed 05/05/24 ANNUAL Labs Needed: Completed on 02/27/24 Last OGTT/CFRD: +CFRD -> Follows with Tyler Ramirez, BUGGY LADLE TENDER-last OV 07/06/24 Dexa: Completed on 09/24/23 -> Lowest T-score is -3.1 in left femoral neck (repeat in August 2024 at [facility])-order is in. Scheduled for [place] 09/02 T/Z = > -1.0 - every [...] 24%, 10 lb weight loss -PICC at [facility] tomorrow 7:45am (map given to [facility] Vascular entrance for PICC placement, order confirmed) -IV Vancomycin 500mg q12, Meropenem 1gram q12 x 14 days; IV diphenhydramine 50mg q12, 30' before IV vancomycin -CMP, CBC, Mg labs today, then qMon & Thurs -Vanc trough Thursday 08/23 -meds via [facility] -PICC care via -[facility] -F[facility]U [facility]-Main Follow up visit in 7-10 days -See abx abstract 08/20/24 Plan for visit: - home IV follow up - PFT ordered and scheduled Fernando Zhang RD documented in this encounter [facility] 08-20-2024 History of Presen t illness [...] PICC Team while admitted Home Care Agency: personal vehicle advisor: OP clinic: [facility] for labs and line care Home Infusion Pharmacy Agency: personal vehicle advisor: [facility] Fax: Have we called HC agency to follow up orders/additional needs? Did we need to contact HC Liaison (Teresa Medina or Mckenna Masterson): Yes or No. Issues: No Labs ordered: CBC w/ Diff CMP Mag Pre-dose Vancomycin Labs once or twice weekly: Twice Weekly Days: Mondays and Patient phone number [phone] Were they contacted? Yes Clinic follow-up appointment date: TBD documented in this encounter [facility] 08-19-2024 Note Addended by: ZAIDA ASNTOS on: 08/19/2024 11:25 AM Modules accepted: Orders [facility] 08-19-2024 Miscellaneous Notes Addended by: ZAIDA SANTOS on: 08/19/2024 11:25 AM Modules accepted: Orders Nataliya with [facility] called to request signed orders. They have the orders but they are not signed. Requests signed orders. Orders and pertinent clinical information faxed to [facility] for PICC placement yesterday. Spoke with patient this morning- PICC was placed as planned. IV abx orders and pertinent clinical information also faxed to [facility] this morning at 0830. Requested patient reach out to this office once they've confirmed SOC/antibiotic delivery with him. documented in this encounter [facility] 08-19-2024 Telephone encounter Note Nataliya with [facility] called to request signed orders. They have the orders but they are not signed. Requests signed orders. [facility] 08-19-2024 Telephone encounter Note Orders and pertinent clinical information faxed to [facility] for PICC placement yesterday. Spoke with patient this morning- PICC was placed as planned. IV abx orders and pertinent clinical information also faxed to [facility] this morning at 0830. Requested patient reach out to this office once they've confirmed SOC/antibiotic delivery with him. [facility] 08-19-2024 Note HNO ID: [id number] Author: DANIEL BARONE RN Service: ? Author Type: Registered Nurse Type: Procedures Filed: 08/19/2024 08:22 Note Text: PICC NURSE INSERTION NOTE DATE OF PROCEDURE: August 19, 2024 TIME OF PROCEDURE: 0750 ORDERING PHYSICIAN: [place] INFORMED CONSENT: Obtained per hospital policy. INDICATION FOR LINE PLACEMENT: IV access COPAT CONDITION OF LINE PLACEMENT: Sterile PRIMARY PROCEDURALIST: Orquidea Ochoa RN NEWS INTERNSHIP: Daniel Barone RN PRE-PROCEDURE REVIEW ALLERGIES Allergen [...] Barone RN CATHETER PLACEMENT Brand: Bard Lot: [id number] Number of Lumens: 1 Type of PICC: Power Injectable PICC Lumen Size: 4 Azerbaijani PLACEMENT TECHNIQUE Lidocaine: Yes, Lidocaine 1% Volume [...] Given to patient QUESTIONS or PROBLEMS: Call [phone] SIGNATURE: Daniel Barone RN PATIENT NAME: Jay Barber DATE: August 19, 2024 TIME: 8:08 AM PAGER/CONTACT PHONE: [facility] 08-19-2024 Procedure note Associated Ord er(s): IR VASCULAR ACCESS TEAM PICC INSERTION RADIO Procedure(s): PICC LINE INSERTION (PICC TEAM) (AK) PICC NURSE INSERTION NOTE DATE OF PROCEDURE: August 19, 2024 TIME OF PROCEDURE: 0750 ORDERING PHYSICIAN: [place] INFORMED CONSENT: Obtained per hospital policy. INDICATION FOR LINE PLACEMENT: IV access COPAT CONDITION OF LINE PLACEMENT: Sterile PRIMARY PROCEDURALIST: Orquidea Ochoa RN NEWS INTERNSHIP: Daniel Barone RN PRE-PROCEDURE REVIEW ALLERGIES Allergen [...] Barone RN CATHETER PLACEMENT Brand: Bard Lot: [id number] Number of Lumens: 1 Type of PICC: Power Injectable PICC Lumen Size: 4 Azerbaijani PLACEMENT TECHNIQUE Lidocaine: Yes, Lidocaine 1% Volume [...] Given to patient QUESTIONS or PROBLEMS: Call [phone] SIGNATURE: Daniel Barone RN PATIENT NAME: Jay Barber DATE: August 19, 2024 TIME: 8:08 AM PAGER/CONTACT PHONE: [facility] 08-19-2024 Procedure note Associated Ord er(s): IR VASCULAR ACCESS TEAM PICC INSERTION RADIO Procedure(s): PICC LINE INSERTION (PICC TEAM) (AK) PICC NURSE INSERTION NOTE DATE OF PROCEDURE: August 19, 2024 TIME OF PROCEDURE: 0750 ORDERING PHYSICIAN: [place] INFORMED CONSENT: Obtained per hospital policy. INDICATION FOR LINE PLACEMENT: IV access COPAT CONDITION OF LINE PLACEMENT: Sterile PRIMARY PROCEDURALIST: Orquidea Ochoa RN NEWS INTERNSHIP: Daniel Barone RN PRE-PROCEDURE REVIEW ALLERGIES Allergen [...] applicable. Daniel Barone RN CATHETER PLACEMENT Brand: FastCAP Lot: [id number] Number of Lumens: 1 Type of PICC: Power Injectable PICC Lumen Size: 4 Azerbaijani PLACEMENT TECHNIQUE Lidocaine: Yes, Lidocaine 1% Volume [...] Given to patient QUESTIONS or PROBLEMS: Call [phone] SIGNATURE: Daniel Barone RN PATIENT NAME: Jay Barber DATE: August 19, 2024 TIME: 8:08 AM PAGER/CONTACT PHONE: documented in this encounter [facility] 08-19-2024 Note HNO ID: [id number] Author: DANIEL BARONE RN Service: ? Author [...] Primary Care SUPPLEMENTAL MATERIAL: PICC Line brochure [facility] 08-19-2024 History of Presen t illness [...] PICC Line brochure documented in this encounter [facility] 08-18-2024 History of Presen t illness Narrative [...] 24%, 10 lb weight loss -PICC at [facility] tomorrow 7:45am (map given to [facility] Heart [facility] Vascular entrance for PICC placement, order confirmed) -IV Vancomycin 500mg q12, Meropenem 1gram q12 x 14 days; IV diphenhydramine 50mg q12, 30' before IV vancomycin -CMP, CBC, Mg labs today, then qMon & Thurs -Vanc trough Thursday 08/23 -meds via [facility] -PICC care via [facility] -F[facility]U Adult [facility] at [facility]-Main Follow up visit in 7-10 days HISTORY [...] with home IVs. Worked to get PICC ([facility], 8am 07/19), meds (IV Vancomyin 500mg and [...] visit: 0 Hospitalizations since last visit: 0 [place]ad[place]/Phone Messages since last visit: 07/19/24-f/u with [facility] [...] forward clinic note from today to patient's sky cap, regarding optimal approach for liver biopsy (US guided vs. Transjugular) as patient has concerns that if he were to be intubated, he may have a diffucult extubation 07/19/24-pt contacted [place] [facility] to obtain info about their [...] (H) 4.3 - 5.6 % Final Comment: [place] [employer] guidelines indicate that patients with HgbA1c in the range 5.7-6.4% are at increased risk for development of diabetes, and intervention by lifestyle modification may be beneficial. HgbA1c greater or equal to 6.5% is considered diagnostic of diabetes. 07/03/2023 6.9 (H) 4.3 - 5.6 % Final Comment: [place] [employer] guidelines indicate that patients with HgbA1c in the range 5.7-6.4% are at increased risk for development of diabetes, and intervention by lifestyle modification may be beneficial. HgbA1c greater or equal to 6.5% is considered diagnostic of diabetes. Hemoglobin A1C (POCT) Date Value Ref Range Status 07/06/2024 6.2 (A) 4.3 - 5.6 % Final Comment: Location:[facility] [place], [address] [place] [address], [facility] Point of care (POC) Hemoglobin A1c (HGBA1C) [...] specific diabetes management situations: The POC device care director provides a normal range of 4.2% to 6.5% for the HGBA1C POC test. However, the [place] [employer] guidelines indicate that patients with [...] (A) 4.3 - 5.6 % Final Comment: [facility], [address] [place] [address] Point of care (POC) Hemoglobin A1c (HGBA1C) [...] specific diabetes management situations: The POC device care director provides a normal range of 4.2% to 6.5% for the HGBA1C POC test. However, the [place] [employer] guidelines indicate that patients with [...] 6.4 4.2 - 5.6 % Final Comment: Location:[facility] [employer] [place], [address] [place], [place] [id number] Point of care (POC) Hemoglobin A1c (HGBA1C) [...] specific diabetes management situations: The POC device care director provides a normal range of 4.2% to 6.5% for the HGBA1C POC test. However, the [place] [employer] guidelines indicate that patients with [...] completed 05/05/24 SW ANNUAL VISIT Needed:completed 05/05/24 Mental health screen: completed 05/05/24 ANNUAL Labs Needed: Completed on 02/27/24 Last OGTT/CFRD: +CFRD -> Follows with Tyler Ramirez CNP-last OV 07/06/24 Dexa: Completed on 09/24/23 -> Lowest T-score is -3.1 in left femoral neck (repeat in August 2024 at [facility])-order is in. 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 Blood-Glucose Meter,Continuous (DEXCOM G7 FARROWING MANAGER) [facility] For monitoring sugars glucagon (BAQSIMI) 3 mg/actuation nasal spray Use 1 Absaraka in the nose as needed. May repeat [...] imaging results. LAST LAB RESULTS: ---Reviewed in [facility] CBC with diff: WBC 5.68 03/17/2024 RBC 2.57 03/17/2024 Hemoglobin 7.4 03/17/2024 Hematocrit 22.7 03/17/2024 MCV 88.3 03/17/2024 MCH 28.8 03/17/2024 MCHC 32.6 03/17/2024 RDW-CV 13.9 03/17/2024 Platelet Count 147 03/17/2024 MPV 9.9 03/17/2024 Neutrophils % 49.9 03/17/2024 Lymph% 27.6 03/17/2024 Thomas% 7.4 03/17/2024 Eosin% 13.7 03/17/2024 Baso% 1.2 03/17/2024 Abs Neut (Segs + Bands) 2.83 03/17/2024 Abs Thomas 0.42 03/17/2024 Abs Eosin 0.78 03/17/2024 Abs [...] (A) 4.3 - 5.6 % Final Comment: Location:[facility], [address] [place] [address], [facility] Point of care (POC) Hemoglobin A1c (HGBA1C) [...] specific diabetes management situations: The POC device care director provides a normal range of 4.2% to 6.5% for the HGBA1C POC test. However, the [place] [employer] guidelines indicate that patients with [...] red blood cell lifespan. SPIROMETRY: Reviewed in [facility] SPIROMETRY BASELINE ONLY ([id number]) - ordered on 08/18/24 ID: [id number] Name: JAY BARBER Race: White Ht: 61.61 in Wt: 85.32 lbs Age: 29 Gender: Male : 1995 Dx: Cystic fibrosis_ Smoking Hx: Non-smoker Doctor: JEAN PIERRE KILGORE Test Date: 08/18/2024 Site: Critical access [facility]: [facility] Pre LLN Pred ULN %Pred Post %Pred %Chg SPIROMETRY FVC (L) 2.40 2.78 3.58 4.39 67 FEV1 (L) 0.76 2.38 3.07 3.72 24 FEV1/FVC 0.32 0.75 0.86 0.94 37 PEF L/s (L/sec) 3.84 6.69 8.48 10.27 45 FEF50 (L/sec) 0.25 1.90 4.03 6.15 6 FIF50 (L/sec) 2.64 FEF50/FIF50 0.10 90-100 FIVC (L) 2.30 JWB52-51 (L/sec) 0.21 2.25 3.64 5.36 5 Time (sec) 14.56 FET PEF (sec) 0.04 MACIEL (L) 0.03 Vol Extrap % (%) 1 SPIROMETRY BASELINE ONLY ([id number]) - ordered on 05/05/24 ID: [id number] Name: ELISABETH JAY Race: White Ht: 61.61 in Wt: 93.92 lbs Age: 28 Gender: Male : 1995 Dx: Cystic fibrosis_ Smoking Hx: Non-smoker Doctor: JEAN PIERRE KILGORE Test Date: 05/05/2024 Site: Tech: Karina Godfrey [facility] Pre LLN Pred ULN %Pred Post %Pred %Chg SPIROMETRY FVC (L) 2.58 2.79 3.58 4.39 71 FEV1 (L) 0.92 2.39 3.07 3.73 30 FEV1/FVC 0.36 0.75 0.86 0.94 41 PEF L/s (L/sec) 4.34 6.69 8.48 10.27 51 FEF50 (L/sec) 0.31 1.91 4.04 6.16 7 FIF50 (L/sec) 3.18 FEF50/FIF50 0.10 90-100 FIVC (L) 2.33 QPR47-67 (L/sec) 0.25 2.26 3.65 5.38 6 Time (sec) 14.78 FET PEF (sec) 0.04 MACIEL (L) 0.04 Vol Extrap % (%) 1 ID: [id number] Name: JAY BARBER Race: White Ht: 62.01 in Wt: 89.07 lbs Age: 28 Gender: Male : 1995 Dx: Cystic fibrosis with pulmonary manifestations Smoking Hx: Non-smoker Doctor: ALEX PINON Test Date: 02/25/2024 Site: [facility] Tech: Padma Campbell [facility] Pre LLN Pred ULN %Pred Post %Pred %Chg SPIROMETRY FVC (L) 2.43 2.84 3.65 4.47 66 FEV1 (L) 0.85 2.43 3.13 3.79 27 FEV1/FVC 0.35 0.75 0.86 0.94 40 PEF L/s (L/sec) 3.77 6.74 8.56 10.38 44 FEF50 (L/sec) 0.28 1.99 4.11 6.24 6 FIF50 (L/sec) 2.74 FEF50/FIF50 0.10 90-100 FIVC (L) 2.25 LGQ32-26 (L/sec) 0.23 2.29 3.70 5.44 6 Time (sec) 14.69 FET PEF (sec) 0.04 MACIEL (L) 0.03 Vol Extrap % (%) 1 SPIROMETRY BASELINE ONLY - ordered on 02/25/2024 ID: [id number] Name: JAY BARBER Race: White Ht: 62.01 [...] 2.81 FEF50/FIF50 0.09 90-100 FIVC (L) 2.27 WAF13-23 (L/sec) 0.22 2.29 3.70 5.44 5 Time (sec) 15.19 FET PEF (sec) 0.04 MACIEL (L) 0.03 Vol Extrap % (%) 1 SPIROMETRY BASELINE ONLY ([id number]) - ordered on 11/12/23 ID: [id number] Name: JAY BARBER Race: White Ht: 62.01 [...] 2.61 FEF50/FIF50 0.11 90-100 FIVC (L) 2.20 RPI59-26 (L/sec) 0.24 2.30 3.71 5.45 6 Time (sec) 14.86 FET PEF (sec) 0.04 MACIEL (L) 0.04 Vol Extrap % (%) 2 SPIROMETRY BASELINE ONLY ([id number]) - ordered on 09/24/23 ID: [id number] Name: JAY BARBER Race: White Ht: 62.01 in Wt: 87.52 lbs Age: 28 Gender: Male : 1995 Dx: Cystic fibrosis_ Smoking Hx: Non-smoker Doctor: JEAN PIERRE KILGORE Test Date: 09/24/2023 Site: [facility] Tech: Padma Campbell [facility] Pre LLN Pred ULN %Pred Post %Pred %Chg SPIROMETRY FVC (L) 2.71 2.84 3.65 4.47 74 FEV1 (L) 1.03 2.44 3.13 3.80 33 FEV1/FVC 0.38 0.75 0.86 0.94 44 PEF L/s (L/sec) 4.03 6.74 8.56 10.37 47 FEF50 (L/sec) 0.36 2.00 4.13 6.25 8 FIF50 (L/sec) 2.47 FEF50/FIF50 0.15 90-100 FIVC (L) 2.43 OCG50-28 (L/sec) 0.29 2.30 3.71 5.46 7 Time (sec) 14.96 FET PEF (sec) 0.04 MACIEL (L) 0.03 Vol Extrap % (%) 1 SPIROMETRY BASELINE ONLY ([id number]) - ordered on 07/02/23 ID: [id number] Name: JAY BARBER Race: White Ht: 62.01 in Wt: 86.86 lbs Age: 28 Gender: Male : 1995 Dx: Cystic fibrosis_ Smoking Hx: Non-smoker Doctor: NABOR VILLASENOR Test Date: 07/24/2023 Site: Tech: Alicia Coello [facility]ON[facility] Pre LLN Pred ULN %Pred Post %Pred %Chg SPIROMETRY FVC (L) 2.79 2.85 3.65 4.47 76 FEV1 (L) 1.15 2.44 3.14 3.80 36 FEV1/FVC 0.41 0.75 0.86 0.95 48 PEF L/s (L/sec) 4.29 6.74 8.56 10.37 50 FEF50 (L/sec) 0.40 2.01 4.13 6.26 9 FIF50 (L/sec) 3.24 FEF50/FIF50 0.12 90-100 FIVC (L) 2.30 EQH33-39 (L/sec) 0.31 2.31 3.72 5.47 8 Time [...] with treatment plan. Return to clinic at [facility] in 1-2 weeks, with spirometry (spirometry baseline). I spent a total of 120 minutes on the date of the service which included preparing to see the patient, [id number] patient care, completing clinical documentation, obtaining and/or reviewing separately obtained history, performing a medically appropriate examination, ordering medications, tests, or procedures, communicating with other HCPs (not separately reported), and care coordination (not separately reported). Electronically Signed: August 18, 2024 documented in this encounter [facility] 08-18-2024 History of Presen t illness Narrative PULM FUNCTION: Provider: Jean Pierre Kilgore MD Spirometry: 1 documented in this encounter [facility] 08-13-2024 Telephone encounter Note Patient would like to hold off on inhaled meropenem at this time. Will re-evaluate how he's feeling when he sees Dr. Kilgore next week. [facility] Work Phone: 08-13-2024 Miscellaneous Notes Patient [...] response from patient. documented in this encounter [facility] 08-13-2024 Telephone encounter Note Discussed with patient that the other oral option is Levaquin - patient believes this has also caused him GI upset in the past. Explained the other option would be inhaled Meropenem- await response from patient. [facility] 08-12-2024 History of Presen t illness Narrative [...] OGTT/CFRD: +CFRD -> Follows with Tyler Ramirez, BUGGY LADLE TENDER-last OV 07/06/24 Dexa: Completed on 09/24/23 -> Lowest T-score is -3.1 in left femoral neck (repeat in August 2024 at [facility])-order is in. Scheduled for [place] T/Z = > -1.0 - every 5 [...] hold due to prior NTM) Inhaled Abx: [place] Ibuprofen: No Referral to Endo: follows with [...] forward clinic note from today to patient's sky cap, regarding optimal approach for liver biopsy (US guided vs. Transjugular) as patient has concerns that if he were to be intubated, he may have a diffucult extubation 07/19/24-pt contacted [place] [facility] to obtain info about their center/clinics Plan for visit: - Sj ordered and scheduled -Needs CF Resp Cult and AFB - Needs repeat Dexa Aug 2024 in [place]? 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 iKlgore next 08/18/24, but was agreeable to having [...] and would like a new prescription ordered. [facility] [phone] Patient's request for medication is as follows: Requested Prescriptions Pending Prescriptions Disp Refills tranexamic acid (LYSTEDA) 650 mg tablet 30 tablet 3 Sig: Take 2 tablets by mouth three times a day for 5 days. Prescription(s) as above. Please process accordingly. Obed Hoff documented in this encounter [facility] 08-11-2024 Telephone encounter Note Spoke with [...] his appt with Dr. Kilgore next week. [facility] 08-11-2024 Telephone encounter Note Patient started coughing up blood around 4pm yesterday. He started taking the tranexamic tablets but he only has a enough for today and would like a new prescription ordered. [facility] [phone] Patient's request for medication is as follows: Requested Prescriptions Pending Prescriptions Disp Refills tranexamic acid (LYSTEDA) 650 mg tablet 30 tablet 3 Sig: Take 2 tablets by mouth three times a day for 5 days. Prescription(s) as above. Please process accordingly. Obed Hoff [facility] 07-26-2024 History of Presen t illness Narrative [...] 2011) requiring surgical splenorenal shunt creation (2011, [facility]), h/o G1EV and EV (last EGD [...] Hypertension No date: Liver disease No date: [facility] (current) use of insulin (HCC) No date: [...] a day 15 mL 11 Blood-Glucose Sensor (Seeder G7 SENSOR) jean-paul use as directed and REPLACE every 10 days 3 Each 11 Insulin Vaughn, Disposable, (BD YARON 2ND GEN PEN NEEDLE) [...] a week. 24 capsule 3 Blood-Glucose Meter,Continuous (Seeder G7 FARROWING MANAGER) misc For monitoring sugars 1 Each 1 glucagon (BAQSIMI) 3 mg/actuation nasal spray Use 1 Absaraka in the nose as needed. 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 60 tablet 1 Insulin Vaughn, Disposable, (BD YARON 2ND GEN PEN NEEDLE) [...] 54 g 11 Blood-Glucose Meter,Continuous (DEXCOM G7 FARROWING MANAGER) [facility] For monitoring sugars 1 Each 1 glucagon (BAQSIMI) 3 mg/actuation nasal spray Use 1 Absaraka in the nose as needed. May repeat [...] (Patient not taking: Reported on 04/07/2024) Vit A,C,Z-Owsu-Fjskjn (PRESERVISION AREDS) 4,296 mcg-226 mg-90 mg cap [...] 2011) requiring surgical splenorenal shunt creation (2011, [facility]), h/o G1EV and EV (last EGD [...] forward clinic note from today to patient's sky cap, Dr. Hamilton regarding optimal approach for liver [...] 2024 10:37 AM documented in this encounter [facility] 07-06-2024 Instructions Stephie Ramirez APRN.ARIAS - 07/06/2024 1:58 PM EDT Patient educated to have ophthalmology visits at least once a year. documented in this encounter [facility] 07-06-2024 Note HNO ID: [id number] Author: STEPHIE RAMIREZ APRN.ARIAS Service: ? Author [...] results in care everywhere, 01/2020: labs in [facility], 07/2020; Alkaline Phosphatase 725 (45-117), ALT 77 (16-61), AST 163 (15-37), 12/2020: results in care everywhere., 03/2021: results In care everywhere, 12/2021: Alkaline Phosphatase 918 (38-113), bone percent 13.9%, liver percent 86.1 , 12/2022: liver function monitored by CF providers, 03/2023: in the medical center, 08/2023: LFTS in the medical center, 10/2023: LFTS in the medical center, 03/2024: liver test in the medical center Dilated Eye Exam: Patient educated to have ophthalmology visits at least once a year. 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 08/2013: New patient visit for Cystic Fibrosis related Diabetes Previous diabetes related labs from [facility] and [facility]-everywhere systems reviewed prior to today's office visit. [...] if above goal. self monitoring blood glucose data: see dexcom report. Average 14 day SG [...] until its approv (more content not included)... [facility] 07-06-2024 History of Presen t illness [...] results in care everywhere, 01/2020: labs in [facility], 07/2020; Alkaline Phosphatase 725 (45-117), ALT 77 (16-61), AST 163 (15-37), 12/2020: results in care everywhere., 03/2021: results In care everywhere, 12/2021: Alkaline Phosphatase 918 (38-113), bone percent 13.9%, liver percent 86.1 , 12/2022: liver function monitored by CF providers, 03/2023: in the medical center, 08/2023: LFTS in the medical center, 10/2023: LFTS in the medical center, 03/2024: liver test in the medical center Dilated Eye Exam: Patient educated to have ophthalmology visits at least once a year. 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 08/2013: New patient visit for Cystic Fibrosis related Diabetes [facility] prior to today's office visit. [...] if above goal. self monitoring blood glucose data: see dexcom report. Average 14 day SG [...] Hypertension No date: Liver disease No date: penitentiary (current) use of insulin (HCC) No date: [...] directed and REPLACE every 10 days Insulin Vaughn, Disposable, (BD YARON 2ND GEN PEN NEEDLE) [...] shortness of breath Blood-Glucose Meter,Continuous (DEXCOM G7 FARROWING MANAGER) misc For monitoring sugars glucagon (BAQSIMI) 3 mg/actuation nasal spray Use 1 Absaraka in the nose as needed. May repeat [...] Objective BP 156/92 Ht 157.5 cm (5' 2) Wt 42.4 kg (93 lb 8 oz) [...] 7. Discussed therapeutic lifestyle changes. Stephie Ramirez APRN.BUGGY LADLE TENDER documented in this encounter [facility] 07-05-2024 Note HNO ID: [id number] Author: STEPHIE RAMIREZ APRN.ARIAS Service: ? Author [...] further kidney damage., 10/2022: prot/creat ratio in the medical center, making appointment with nephrology, 07/2023: prot/creat ratio in the medical center Lipid Profile:10/2013: TC 111, HDL 42, LDL [...] total 1.3 (0.2-1.0, mg/dL, 05/2018: results in [facility] everywhere, 12/2019: results in [facility] everywhere, 01/2020: labs in [facility], 07/2020; Alkaline Phosphatase 725 (45-117), ALT 77 (16-61), AST 163 (15-37), 12/2020: results in care everywhere., 03/2021: results In [facility] everywhere, 12/2021: Alkaline Phosphatase 918 (38-113), bone percent 13.9%, liver percent 86.1 , 12/2022: liver function monitored by CF providers, 03/2023: in the medical center, 08/2023: LFTS in the medical center, 10/2023: LFTS in the medical center, 03/2024: liver test in the medical center Dilated Eye Exam: Patient educated to have ophthalmology visits at least once a year. 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 08/2013: New patient visit for Cystic Fibrosis related Diabetes [facility] prior to today's office visit. [...] patients CFRD only. self monitoring blood glucose data: see dexcom report. Average 14 day SG [...] used for t (more content not included)... [facility] 07-05-2024 History of Presen t illness [...] further kidney damage., 10/2022: prot/creat ratio in the medical center, making appointment with nephrology, 07/2023: prot/creat ratio in the medical center Lipid Profile:10/2013: TC 111, HDL 42, LDL [...] results in care everywhere, 01/2020: labs in [facility], 07/2020; Alkaline Phosphatase 725 (45-117), ALT 77 (16-61), AST 163 (15-37), 12/2020: results in care everywhere., 03/2021: results In care everywhere, 12/2021: Alkaline Phosphatase 918 (38-113), bone percent 13.9%, liver percent 86.1 , 12/2022: liver function monitored by CF providers, 03/2023: in the medical center, 08/2023: LFTS in the medical center, 10/2023: LFTS in the medical center, 03/2024: liver test in the medical center Dilated Eye Exam: Patient educated to have ophthalmology visits at least once a year. 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 08/2013: New patient visit for Cystic Fibrosis related Diabetes Previous diabetes related [facility] reviewed prior to today's office visit. [...] patients CFRD only. self monitoring blood glucose data: see dexcom report. Average 14 day SG [...] Hypertension No date: Liver disease No date: penitentiary (current) use of insulin (HCC) No date: [...] at 6 am and 4 pm. Insulin Vaughn, Disposable, (BD YARON 2ND GEN PEN NEEDLE) [...] as needed for wheezing/shortness of breath. Vit A,C,T-Ywyt-Dynick (PRESERVISION AREDS) 4,296 mcg-226 mg-90 mg cap [...] times a week. Blood-Glucose Meter,Continuous (DEXCOM G7 FARROWING MANAGER) misc For monitoring sugars glucagon (BAQSIMI) 3 mg/actuation nasal spray Use 1 Absaraka in the nose as needed. May repeat [...] visit. Physical Exam documented in this encounter [facility] 05-10-2024 History of Presen t illness Narrative Nutrition Therapy CF Annual Assessment Some elements copied from my note on 03/20/2023 have been updated and all reflect current decision making from today, 05/05/2024 Nutrition Diagnosis: Underweight, related to, increased energy needs, as evidenced by cystic fibrosis . RECOMMENDED MALNUTRITION DIAGNOSIS: SEVERE PROTEIN-CALORIE MALNUTRITION-- NUTRITION CARE PLAN Nutrition Intervention 05/05/2024: Modify type and amount of food at meals and snacks Recheck lab work Continue with MVW D3000 BID 3. Continue with enzyme regimen a. Do not exceed 11 capsules per day total 4. Repeat DEXA this year 5. Continue with Ensure Plus Nutrition Monitoring & Evaluation: Weight gain of 1-2 pounds per week and adherence to above recommendations Need for Follow up: PRN Patient presents for CF annual assessment. See below for details and above for recommendations Diet History: Not reviewed Pertinent Lab Work: Latest Ref Rng 02/27/2024 Vitamin E-alpha 6.0 - 23.0 mg/L 6.3 Vitamin E-gamma 0.3 - 3.2 mg/L 0.8 Vitamin D 25 Hydroxy 31.0 - 80.0 ng/mL 32.4 Vitamin A 0.30 - 1.20 mg/L 0.29 (L) Vitamins/mineral intake: Vitamin D: none currently MV: MVW D3000 BID CFRD: Present, follows with endo at [facility] CGM: Dexcom G7 Insulin regimen: Basaglar 8 units HS and humalog with meals Oral diabetic agents: none DEXA: 09/29/2023; should repeat this year, may be open to being seen in bone clinic Lowest T-score -3.1 in left femoral neck GI Symptoms: Reports no issues at this time, feels much better. No issues with constipation recently Colonoscopy: n/a Abdominal US/Fibroscan: n/a; has known liver disease. Following with hepatology Pancreatic insufficiency: Present Enzymes Used: Creon 36,000 3 with meals (2600 units lipase/kg/meal, does not usually have snacks) Nutrition Support: None BMI status based on recommendations of >/= 22 for women and >/= 23 for men: 17.68; weight is a little up for him Activity: Activities of Daily Living: Active 50% of the day. 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 Resting Metabolic Rate: 1254 Malnutrition Screening Significant unintentional weight loss? No Eating less than 75% of usual intake for more than 2 weeks? No Education Materials Provided: None this visit READINESS TO LEARN Cognitive ability: Alert and oriented Motivation to learn: Interested Family support: High - Very involved in pt care Instruction provided to: Patient and Mother Patient learns best by: Multiple Methods Factors affecting learning: None Physical limitations affecting learning: None Referred/Supervised by: Jennie/Mihir DAVIES Billing Type: Re-assess/15 min 2 units SIGNATURE: Fernando Zhang RD PATIENT NAME: Jay Barber DATE: 05/05/2024 TIME: 12:13 PM PAGER: [phone] documented in this encounter [facility] 05-07-2024 History of Presen t illness Narrative [...] PATIENT PRESENTS WITH AN IMPLANTABLE OR ATTACHED JOB COST ESTIMATOR: Yes Dexcom ALLERGIES: Reviewed and unchanged CONTRAST ALLERGY: NO. EXAM: MRI - CONTRAST TYPE: GROUP II PERIPHERAL IV DATA: Ambulatory: A peripheral IV was started in the Left antecubital site with a Angio cath: 22 gauge. RADIOLOGY DEPARTMENT: MR; Exam(s) Completed: Body: Pancreas/Biliary SIGNATURE: RT Art(R) PATIENT NAME: Jay Barber DATE: May 07, 2024 TIME: 1:46 PM documented in this encounter [facility] 05-05-2024 Instructions Zaida Santos RN - 05/05/2024 [...] usual activities immediately. documented in this encounter [facility] 05-05-2024 History of Presen t illness Narrative [...] x 5 minutes Microwave x 5 minutes Process Analyst 158 degrees x 30 minutes Electric steam sterilizer(baby bottle sterilizer) Cold options include Soak in 70% isopropyl alcohol x 5 minutes Soak in 3% hydrogen peroxide x 30 minutes Reviewed replacement recommendations. Nebulizer every 6 months*. Inhaler spacer every 12 months*. Nebulizer filters per care director guidelines*. *More often as needed. 6. EXERCISE/STRETCHING: Patient reports No specific exercise program. He plays with his dog for about 20 minutes on most days. Recommended exercise at least 30 minutes, 3-5 times a week. Goal is 150 minutes per week. 7. 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 Appt [phone]. 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 Burke France in 2020 for [...] ordered ---Following with Dr. Francis Ramirez at [facility] OSTEOPOROSIS ---DEXA with Vitamin D 25 Hydroxy (ng/mL) Date Value 02/27/2024 32.4 Hemoglobin A1C Date Value Ref Range Status 02/03/2024 6.3 (H) 4.3 - 5.6 % Final Comment: [place] [employer] guidelines indicate that patients with HgbA1c in the range 5.7-6.4% are at increased risk for development of diabetes, and intervention by lifestyle modification may be beneficial. HgbA1c greater or equal to 6.5% is considered diagnostic of diabetes. 07/03/2023 6.9 (H) 4.3 - 5.6 % Final Comment: [place] [employer] guidelines indicate that patients with HgbA1c in the range 5.7-6.4% are at increased risk for development of diabetes, and intervention by lifestyle modification may be beneficial. HgbA1c greater or equal to 6.5% is considered diagnostic of diabetes. 03/08/2023 7.7 (H) 4.3 - 5.6 % Final Comment: [place] [employer] guidelines indicate that patients with HgbA1c in the range 5.7-6.4% are at increased risk for development of diabetes, and intervention by lifestyle modification may be beneficial. HgbA1c greater or equal to 6.5% is considered diagnostic of diabetes. Hemoglobin A1C (POCT) Date Value Ref Range Status 03/09/2024 6.1 (A) 4.3 - 5.6 % Final Comment: [facility] [address] [place] [address] Point of care (POC) Hemoglobin A1c (HGBA1C) [...] specific diabetes management situations: The POC device care director provides a normal range of 4.2% to 6.5% for the HGBA1C POC test. However, the [place] [employer] guidelines indicate that patients with [...] 6.4 4.2 - 5.6 % Final Comment: Location:[facility], [address] [place] [address], [facility] Point of care (POC) Hemoglobin A1c (HGBA1C) [...] specific diabetes management situations: The POC device care director provides a normal range of 4.2% to 6.5% for the HGBA1C POC test. However, the [place] [employer] guidelines indicate that patients with [...] RT ANNUAL VISIT Needed: NEEDS for 2023 ANNUAL VISIT Needed: 2023 - seen 05/05 SW Mental health screen: 2023 - seen 05/05 Referral to Endo: follows with Stephie Ramirez, ARIAS - LALA on 03/09/24 Referral to Transplant: Lung and liver discussed extensively with patient during July 2023 hospital admission - pt eventually deferred at hospital discharge Immunization History Administered Date(s) Administered COVID-19 original vaccine, age 12+ yr, monovalent (panOpen-[employer] AnalyticsNTPerficient - PURPLE TOP) 12/24/2020 01/21/2021 12/05/2021 COVID-19 vaccine, age 12+ yr, bivalent (panOpen-BIONTECH) 12/04/2022 Haemophilus influenzae b (HbOC) vaccine, 4-dose [...] vaccine, quadrivalent, unspecified formulation 05/27/2012 novel influenza (M8I3-11) vaccine, PF 10/19/2009 pneumococcal (PCV7) vaccine, 7 [...] (HCC) History of transfusion Hypertension Liver disease pen[facility]iary (current) use of insulin (HCC) Transfusion history [...] of liquid and take as directed. Insulin Vaughn, Disposable, (BD YARON 2ND GEN PEN NEEDLE) [...] times a week. Blood-Glucose Meter,Continuous (DEXCOM G7 FARROWING MANAGER) [facility] For monitoring sugars glucagon (BAQSIMI) 3 mg/actuation nasal spray Use 1 Absaraka in the nose as needed. May repeat [...] times a day for 5 days. Vit A,C,X-Yipq-Spdgud (PRESERVISION AREDS) 4,296 mcg-226 mg-90 mg cap [...] imaging results. LAST LAB RESULTS: ---Reviewed in [facility] CBC with diff: WBC 5.68 03/17/2024 RBC 2.57 03/17/2024 Hemoglobin 7.4 03/17/2024 Hematocrit 22.7 03/17/2024 MCV 88.3 03/17/2024 MCH 28.8 03/17/2024 MCHC 32.6 03/17/2024 RDW-CV 13.9 03/17/2024 Platelet Count 147 03/17/2024 MPV 9.9 03/17/2024 Neutrophils % 49.9 03/17/2024 Lymph% 27.6 03/17/2024 Thomas% 7.4 03/17/2024 Eosin% 13.7 03/17/2024 Baso% 1.2 03/17/2024 Abs Neut (Segs + Bands) 2.83 03/17/2024 Abs Thomas 0.42 03/17/2024 Abs Eosin 0.78 03/17/2024 Abs [...] (A) 4.3 - 5.6 % Final Comment: Location:[facility], [address], [place], [address] Point of care (POC) Hemoglobin A1c (HGBA1C) [...] specific diabetes management situations: The POC device care director provides a normal range of 4.2% to 6.5% for the HGBA1C POC test. However, the [place] [employer] guidelines indicate that patients with [...] red blood cell lifespan. SPIROMETRY: Reviewed in [facility] SPIROMETRY BASELINE ONLY ([id number]) - ordered on 05/05/24 ID: [id number] Name: JAY BARBER Race: White Ht: 61.61 in Wt: 93.92 lbs Age: 28 Gender: Male : 1995 Dx: Cystic fibrosis_ Smoking Hx: Non-smoker Doctor: JEAN PIERRE KILGORE Test Date: 05/05/2024 Site: Tech: Karina Godfrey PRE-BRONCH POST-BRONCH Pre LLN Pred ULN %Pred Post %Pred %Chg SPIROMETRY FVC (L) 2.58 2.79 3.58 4.39 71 FEV1 (L) 0.92 2.39 3.07 3.73 30 FEV1/FVC 0.36 0.75 0.86 0.94 41 PEF L/s (L/sec) 4.34 6.69 8.48 10.27 51 FEF50 (L/sec) 0.31 1.91 4.04 6.16 7 FIF50 (L/sec) 3.18 FEF50/FIF50 0.10 90-100 FIVC (L) 2.33 TEG42-16 (L/sec) 0.25 2.26 3.65 5.38 6 Time (sec) 14.78 FET PEF (sec) 0.04 MACIEL (L) 0.04 Vol Extrap % (%) 1 ID: [id number] Name: JAY BARBER Race: White Ht: 62.01 in Wt: 89.07 lbs Age: 28 Gender: Male : 1995 Dx: Cystic fibrosis with pulmonary manifestations Smoking Hx: Non-smoker Doctor: ALEX PINON Test Date: 02/25/2024 Site: [facility] Tech: Padma Campbell PRE-BRONCH POST-BRONCH Pre LLN Pred ULN %Pred Post %Pred %Chg SPIROMETRY FVC (L) 2.43 2.84 3.65 4.47 66 FEV1 (L) 0.85 2.43 3.13 3.79 27 FEV1/FVC 0.35 0.75 0.86 0.94 40 PEF L/s (L/sec) 3.77 6.74 8.56 10.38 44 FEF50 (L/sec) 0.28 1.99 4.11 6.24 6 FIF50 (L/sec) 2.74 FEF50/FIF50 0.10 90-100 FIVC (L) 2.25 USQ60-80 (L/sec) 0.23 2.29 3.70 5.44 6 Time (sec) 14.69 FET PEF (sec) 0.04 MACIEL (L) 0.03 Vol Extrap % (%) 1 SPIROMETRY BASELINE ONLY - ordered on 02/25/2024 ID: [id number] Name: JAY BARBER Race: White Ht: 62.01 [...] 2.81 FEF50/FIF50 0.09 90-100 FIVC (L) 2.27 ZIB06-98 (L/sec) 0.22 2.29 3.70 5.44 5 Time (sec) 15.19 FET PEF (sec) 0.04 MACIEL (L) 0.03 Vol Extrap % (%) 1 SPIROMETRY BASELINE ONLY ([id number]) - ordered on 11/12/23 ID: [id number] Name: ELISABETHJAY Race: White Ht: 62.01 in [...] 2.61 FEF50/FIF50 0.11 90-100 FIVC (L) 2.20 XXE42-73 (L/sec) 0.24 2.30 3.71 5.45 6 Time (sec) 14.86 FET PEF (sec) 0.04 MACIEL (L) 0.04 Vol Extrap % (%) 2 SPIROMETRY BASELINE ONLY ([id number]) - ordered on 09/24/23 ID: [id number] Name: JAY BARBER Race: White Ht: 62.01 in Wt: 87.52 lbs Age: 28 Gender: Male : 1995 Dx: Cystic fibrosis_ Smoking Hx: Non-smoker Doctor: JEAN PIERRE KILGORE Test Date: 09/24/2023 Site: [facility] Tech: Padma Campbell PRE-BRONCH POST-BRONCH Pre LLN Pred ULN %Pred Post %Pred %Chg SPIROMETRY FVC (L) 2.71 2.84 3.65 4.47 74 FEV1 (L) 1.03 2.44 3.13 3.80 33 FEV1/FVC 0.38 0.75 0.86 0.94 44 PEF L/s (L/sec) 4.03 6.74 8.56 10.37 47 FEF50 (L/sec) 0.36 2.00 4.13 6.25 8 FIF50 (L/sec) 2.47 FEF50/FIF50 0.15 90-100 FIVC (L) 2.43 GUP46-45 (L/sec) 0.29 2.30 3.71 5.46 7 Time (sec) 14.96 FET PEF (sec) 0.04 MACIEL (L) 0.03 Vol Extrap % (%) 1 SPIROMETRY BASELINE ONLY ([id number]) - ordered on 07/02/23 ID: [id number] Name: JAY BARBER Race: White Ht: 62.01 in Wt: 86.86 lbs Age: 28 Gender: Male : 1995 Dx: Cystic fibrosis_ Smoking Hx: Non-smoker Doctor: NABOR VILLASENOR Test Date: 07/24/2023 Site: Tech: Alicia Coello PRE-BRONCH POST-BRONCH Pre LLN Pred ULN %Pred Post %Pred %Chg SPIROMETRY FVC (L) 2.79 2.85 3.65 4.47 76 FEV1 (L) 1.15 2.44 3.14 3.80 36 FEV1/FVC 0.41 0.75 0.86 0.95 48 PEF L/s (L/sec) 4.29 6.74 8.56 10.37 50 FEF50 (L/sec) 0.40 2.01 4.13 6.26 9 FIF50 (L/sec) 3.24 FEF50/FIF50 0.12 90-100 FIVC (L) 2.30 NJL38-64 (L/sec) 0.31 2.31 3.72 5.47 8 Time [...] with treatment plan. Return to clinic at [place] in 12 weeks, with spirometry (spirometry baseline). I spent a total of 60 minutes on the date of the service which included preparing to see the patient, [id number] patient care, completing clinical documentation, obtaining and/or reviewing separately obtained history, and performing a medically appropriate examination. Electronically Signed: Jean Pierre Kilgore MD, FRANCI, FACP [facility] Adult [facility] Respiratory [place] [facility] Adult CF Patients [phone]. Adult patients use option #2 Bronchiectasis (Non-CF) Patients [phone] Chemical Process Project Engineer: Nell Lozano [phone] Email: [email or web address] Office: [phone] May 05, 2024 documented in this encounter [facility] 05-05-2024 History of Presen t illness Narrative .PULM FUNCTION: Provider: Jean Pierre Kilgore MD Spirometry: 1 System: [facility] - [id number] documented in this encounter [facility] 05-05-2024 History of Presen t illness Narrative [...] unkwn Financial and Community Resources/Issues 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; 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 Annual Household Income: 25,000 Insurance Medicaid/HMO: [facility]/Other: Adult [facility] Copay Assistance Program: eligible for [employer], but not needed Financial Concerns: Parking/transportation/medicatio n: parking pass provided; no concerns obtaining or affording medications Daily Care Check in Completed: Yes/No: No Education School:[employer]-psychology major Any developmental issues/delays: none Educational Level of Father of Patient: unkwn Educational Level of Mother of Patient: unkwn Educational Level of Spouse: N/A Social History: -T/F care from [facility] -Advanced lung disease -Has not been interested in pursuing lung transplant -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 He has [facility] Medicaid and adult [facility] for insurance. No issues obtaining or affording medications. His initial disability application was denied and he is now in the appeal process. 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 He has a history of anxiety [...] continue to follow. CHAPARRO Stubbs, [facility] Cystic Fibrosis Bench Worker Helper V. [phone] documented in this encounter [facility] 04-30-2024 History of Presen t illness Narrative [...] RT ANNUAL VISIT Needed: NEEDS for 2023 ANNUAL VISIT Needed: NEEDS for 2023 Mental health screen: NEEDS for 2023 ANNUAL Labs Needed: Completed on 02/27/24 Last OGTT/CFRD: +CFRD -> Follows with Tyler Ramirez, BUGGY LADLE TENDER Dexa: Completed on 09/24/23 -> Lowest T-score [...] hold due to prior NTM) Inhaled Abx: [place] Ibuprofen: No Referral to Endo: follows with Stephie Ramirez CNP - LALA on 03/09/24 Referral to Transplant: Lung and liver discussed extensively with patient during July 2023 hospital admission - pt eventually deferred at hospital discharge EPIC/Phone Messages since last visit: Plan for visit: - [place] ordered and scheduled - Due for annual [address] - Due for [...] Lindo on 07/16/24 documented in this encounter [facility] 04-07-2024 History of Presen t illness Narrative [...] 2011) requiring surgical splenorenal shunt creation (2011, [facility]), h/o G1EV and EV (last EGD [...] (HCC) History of transfusion Hypertension Liver disease [facility] (current) use of insulin (HCC) Transfusion history [...] a day 15 mL 11 Blood-Glucose Sensor (Seeder G7 SENSOR) jean-paul use as directed and [...] and 4 pm. 60 tablet 1 Insulin Vaughn, Disposable, (BD YARON 2ND GEN PEN NEEDLE) [...] 54 g 11 Blood-Glucose Meter,Continuous (DEXCOM G7 FARROWING MANAGER) misc For monitoring sugars 1 Each 1 glucagon (BAQSIMI) 3 mg/actuation nasal spray Use 1 Absaraka in the nose as needed. May repeat [...] (Patient not taking: Reported on 04/07/2024) Vit A,C,V-Wuxt-Okhtps (PRESERVISION AREDS) 4,296 mcg-226 mg-90 mg cap [...] 2011) requiring surgical splenorenal shunt creation (2011, [facility]), h/o G1EV and EV (last EGD [...] 2024 3:36 PM documented in this encounter [facility] 04-07-2024 Instructions Tia Lindo MD - 04/07/2024 1:51 PM EDT Schedule RV with Dr. Lindo in 3 months Schedule MRCP as soon as possible Get blood work done in 2 weeks. Take ursodiol 600 mg once daily documented in this encounter [facility] 03-26-2024 Telephone encounter Note Images from the original note were not included. Medication: SPS 15GM/60ML suspension Date Submitted: March 26, 2024 Prescribing Provider: Sally Schneider CNP Method of Submission: CMM Outcome: Denied Reason for Denial: Outcome Date: March 26, 2024 PRABHA Arriaga [facility] 03-26-2024 Miscellaneous Notes Images from the original note were not included. Medication: SPS 15GM/60ML suspension Date Submitted: March 26, 2024 Prescribing Provider: Sally Schneider CNP Method of Submission: CMM Outcome: Denied Reason for Denial: Outcome Date: March 26, 2024 PRABHA Arriaga documented in this encounter [facility] 03-09-2024 Instructions Stephie Ramirez APRN.BUGGY LADLE TENDER - 03/09/2024 1:24 PM EDT Patient educated to have ophthalmology visits at least once a year. documented in this encounter [facility] 03-09-2024 Note HNO ID: [id number] Author: STEPHIE RAMIREZ APRN.CNP Service: ? Author [...] further kidney damage., 10/2022: prot/creat ratio in the medical center, making appointment with nephrology, 07/2023: prot/creat ratio in the medical center Lipid Profile:10/2013: TC 111, HDL 42, LDL [...] results in care everywhere, 01/2020: labs in [facility], 07/2020; Alkaline Phosphatase 725 (45-117), ALT 77 (16-61), AST 163 (15-37), 12/2020: results in care everywhere., 03/2021: results In care everywhere, 12/2021: Alkaline Phosphatase 918 (38-113), bone percent 13.9%, liver percent 86.1 , 12/2022: liver function monitored by CF providers, 03/2023: in the medical center, 08/2023: LFTS in the medical center, 10/2023: LFTS in the medical center, 03/2024: liver test in the medical center Dilated Eye Exam: Patient educated to have ophthalmology visits at least once a year. 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 08/2013: New patient visit for Cystic Fibrosis related Diabetes Previous diabetes related labs from [employer] and [employer] systems reviewed prior to today's office visit. [...] patients CFRD only. self monitoring blood glucose data: see dexcom report. Average 14 day SG [...] Your new i (more content not included)... [facility] 03-09-2024 History of Presen t illness [...] results in care everywhere, 01/2020: labs in [facility], 07/2020; Alkaline Phosphatase 725 (45-117), ALT 77 (16-61), AST 163 (15-37), 12/2020: results in care everywhere., 03/2021: results In care everywhere, 12/2021: Alkaline Phosphatase 918 (38-113), bone percent 13.9%, liver percent 86.1 , 12/2022: liver function monitored by CF providers, 03/2023: in the medical center, 08/2023: LFTS in the medical center, 10/2023: LFTS in the medical center, 03/2024: liver test in the medical center Dilated Eye Exam: Patient educated to have ophthalmology visits at least once a year. 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 08/2013: New patient visit for Cystic Fibrosis related Diabetes Previous diabetes related labs from [facility] and [facility] reviewed prior to today's office visit. [...] patients CFRD only. self monitoring blood glucose data: see dexcom report. Average 14 day SG [...] (HCC) History of transfusion Hypertension Liver disease [facility] (current) use of insulin (HCC) Transfusion history [...] by mouth two times a day. Insulin Vaughn, Disposable, (BD YARON 2ND GEN PEN NEEDLE) [...] as needed for wheezing/shortness of breath. Vit A,C,A-Uele-Qaebpz (PRESERVISION AREDS) 4,296 mcg-226 mg-90 mg cap [...] instructed twice daily. Blood-Glucose Meter,Continuous (DEXCOM G7 FARROWING MANAGER) [facility] For monitoring sugars glucagon (BAQSIMI) 3 mg/actuation nasal spray Use 1 Absaraka in the nose as needed. May repeat [...] Objective BP 128/76 Ht 157.5 cm (5' 2) Wt 41 kg (90 lb 6.4 oz) [...] 7. Discussed therapeutic lifestyle changes. Stephie Ramirez APRN.BUGGY LADLE TENDER documented in this encounter [facility] 03-09-2024 Note HNO ID: [id number] Author: STEPHIE RAMIREZ APRN.CNP Service: ? Author [...] further kidney damage., 10/2022: prot/creat ratio in the medical center, making appointment with nephrology, 07/2023: prot/creat ratio in the medical center Lipid Profile:10/2013: TC 111, HDL 42, LDL [...] results in care everywhere, 01/2020: labs in [facility], 07/2020; Alkaline Phosphatase 725 (45-117), ALT 77 (16-61), AST 163 (15-37), 12/2020: results in care everywhere., 03/2021: results In care everywhere, 12/2021: Alkaline Phosphatase 918 (38-113), bone percent 13.9%, liver percent 86.1 , 12/2022: liver function monitored by CF providers, 03/2023: in the medical center, 08/2023: LFTS in the medical center, 10/2023: LFTS in the medical center, 03/2024: liver test in the medical center Dilated Eye Exam: Patient educated to have ophthalmology visits at least once a year. 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 08/2013: New patient visit for Cystic Fibrosis related Diabetes Previous diabetes related labs from [facility] and [facility] systems reviewed prior to today's office visit. [...] patients CFRD only. self monitoring blood glucose data: see dexcom report. Average 14 day SG [...] amounts of c (more content not included)... [facility] 03-01-2024 Miscellaneous Notes Scheduling arranged appt at [place] for tomorrow afternoon. Patient is aware. Received call from [facility] requesting an apointment for PICC line removal with one of [place] general surgeons. Patient has been scheduled on 03/26/[address] Gotti and placed on wait list. Please notify patient if he is scheduled with the incorrect provider for the removal. Patient called and stated his PICC Line has stopped flushing as of last night and wanted to know what to do about it? Should he go to [place] to have it removed? Call back [phone] documented in this encounter [facility] 02-25-2024 History of Presen t illness [...] ---Referral to ENT for surgical eval. Appt [phone]. 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 Burke France in 2019 for [...] ordered ---Following with Dr. Francis Ramirez at [facility] Vitamin D 25 Hydroxy (ng/mL) Date Value 02/27/2024 32.4 Hemoglobin A1C Date Value Ref Range Status 02/03/2024 6.3 (H) 4.3 - 5.6 % Final Comment: [place] [employer] guidelines indicate that patients with HgbA1c in the range 5.7-6.4% are at increased risk for development of diabetes, and intervention by lifestyle modification may be beneficial. HgbA1c greater or equal to 6.5% is considered diagnostic of diabetes. 07/03/2023 6.9 (H) 4.3 - 5.6 % Final Comment: [place] [employer] guidelines indicate that patients with HgbA1c in the range 5.7-6.4% are at increased risk for development of diabetes, and intervention by lifestyle modification may be beneficial. HgbA1c greater or equal to 6.5% is considered diagnostic of diabetes. 03/08/2023 7.7 (H) 4.3 - 5.6 % Final Comment: [place] [employer] guidelines indicate that patients with HgbA1c in the range 5.7-6.4% are at increased risk for development of diabetes, and intervention by lifestyle modification may be beneficial. HgbA1c greater or equal to 6.5% is considered diagnostic of diabetes. Hemoglobin A1C (POCT) Date Value Ref Range Status 03/09/2024 6.1 (A) 4.3 - 5.6 % Final Comment: Location:[facility], [address], [place], [address] Point of care (POC) Hemoglobin A1c (HGBA1C) [...] specific diabetes management situations: The POC device care director provides a normal range of 4.2% to 6.5% for the HGBA1C POC test. However, the [place] [employer] guidelines indicate that patients with [...] 6.4 4.2 - 5.6 % Final Comment: Location:[facility], [address] [place] [address], [id number] Point of care (POC) Hemoglobin A1c (HGBA1C) [...] specific diabetes management situations: The POC device care director provides a normal range of 4.2% to 6.5% for the HGBA1C POC test. However, the [place] [employer] guidelines indicate that patients with [...] visit: 0 Hospitalizations since last visit: 0 Zadby/Phone Messages since last visit: Exacerbations in the last 12 months: -Hospital Admit: 07/02/23-07/29/23 treated with Vancomycin through 07/06, Minocycline through 07/22, and Meropenum through 07/24 (not discharged home on any IV abx) -Hospital Admit: 03/07/23-03/11/23 -> discharged on Home IV abx Vanc and Larisa through 04/01/23 Immunization History Administered Date(s) Administered COVID-19 original vaccine, age 12+ yr, monovalent (PrePayMe - PURPLE TOP) 12/24/2020 01/21/2021 12/05/2021 COVID-19 vaccine, age 12+ yr, bivalent ([email or web address]) 12/04/2022 Haemophilus influenzae b (HbOC) vaccine, 4-dose series (HIBTITER) 1995 01/11/1994 05/20/1994 02/13/1995 Haemophilus influenzae b (Hib PRP-T) vaccine, 4-dose series (ACTHIB, HIBERIX) 07/16/1995 diphtheria tetanus pertussis (DTP) vaccine 1995 01/11/1994 05/20/1994 02/13/1995 07/16/199507/1807/18/1999 hepatitis B (HepB) vaccine, 3-dose series, age [...] vaccine, quadrivalent, unspecified formulation 05/27/2012 novel influenza (D7W6-99) vaccine, PF 10/19/2009 pneumococcal (PCV7) vaccine, 7 [...] (HCC) History of transfusion 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 Insulin Vaughn, Disposable, (BD YARON 2ND GEN PEN NEEDLE) [...] times a week. Blood-Glucose Meter,Continuous (DEXCOM G7 FARROWING MANAGER) [facility] For monitoring sugars glucagon (BAQSIMI) 3 mg/actuation nasal spray Use 1 Absaraka in the nose as needed. May repeat [...] times a day for 5 days. Vit A,C,F-Llar-Hurrkc (PRESERVISION AREDS) 4,296 mcg-226 mg-90 mg cap [...] recent labs LAST LAB RESULTS: ---Reviewed in [facility] CBC with diff: WBC 4.0 02/24/2024 RBC 2.63 02/16/2024 Hemoglobin 7.5 02/24/2024 Hematocrit 23.1 02/24/2024 MCV 93.2 02/16/2024 MCH 30.8 02/16/2024 MCHC 33.1 02/16/2024 RDW-CV 15.9 02/16/2024 Platelet Count 225 02/24/2024 MPV 10.5 02/16/2024 Neutrophils % 45.4 02/24/2024 Lymph% 23.1 02/12/2024 Thomas% 8.8 02/12/2024 Eosinophils % 12.1 02/24/2024 Baso% 1.5 02/12/2024 Abs Neut (Segs + Bands) 1.8 02/24/2024 Abs Thomas 0.53 02/12/2024 Abs Eosin 0.41 02/12/2024 Abs [...] (A) 4.3 - 5.6 % Final Comment: Location:[facility], [address] [place] [address], [facility] Point of care (POC) Hemoglobin A1c (HGBA1C) [...] specific diabetes management situations: The POC device care director provides a normal range of 4.2% to 6.5% for the HGBA1C POC test. However, the [place] [employer] guidelines indicate that patients with [...] red blood cell lifespan. SPIROMETRY: Reviewed in EPIC ID: [id number] Name: JAY BARBER Race: White Ht: 62.01 in Wt: 89.07 lbs Age: 28 Gender: Male : 1995 Dx: Cystic fibrosis with pulmonary manifestations Smoking Hx: Non-smoker Doctor: ALEX PINON Test Date: 02/25/2024 Site: [facility] Tech: Padma Campbell PRE-BRONCH POST-BRONCH Pre LLN Pred ULN %Pred Post %Pred %Chg SPIROMETRY FVC (L) 2.43 2.84 3.65 4.47 66 FEV1 (L) 0.85 2.43 3.13 3.79 27 FEV1/FVC 0.35 0.75 0.86 0.94 40 PEF L/s (L/sec) 3.77 6.74 8.56 10.38 44 FEF50 (L/sec) 0.28 1.99 4.11 6.24 6 FIF50 (L/sec) 2.74 FEF50/FIF50 0.10 90-100 FIVC (L) 2.25 UCU38-88 (L/sec) 0.23 2.29 3.70 5.44 6 Time (sec) 14.69 FET PEF (sec) 0.04 MACIEL (L) 0.03 Vol Extrap % (%) 1 SPIROMETRY BASELINE ONLY - ordered on 02/25/2024 ID: [id number] Name: JAY BARBER Race: White Ht: 62.01 [...] 2.81 FEF50/FIF50 0.09 90-100 FIVC (L) 2.27 ADQ35-94 (L/sec) 0.22 2.29 3.70 5.44 5 Time (sec) 15.19 FET PEF (sec) 0.04 MACIEL (L) 0.03 Vol Extrap % (%) 1 SPIROMETRY BASELINE ONLY ([id number]) - ordered on 11/12/23 ID: [id number] Name: JAY BARBER Race: White Ht: 62.01 [...] 2.61 FEF50/FIF50 0.11 90-100 FIVC (L) 2.20 DLS70-68 (L/sec) 0.24 2.30 3.71 5.45 6 Time (sec) 14.86 FET PEF (sec) 0.04 MACIEL (L) 0.04 Vol Extrap % (%) 2 SPIROMETRY BASELINE ONLY ([id number]) - ordered on 09/24/23 ID: [id number] Name: JAY BARBER Race: White Ht: 62.01 in Wt: 87.52 lbs Age: 28 Gender: Male : 1995 Dx: Cystic fibrosis_ Smoking Hx: Non-smoker Doctor: JEAN PIERRE KILGORE Test Date: 09/24/2023 Site: [facility] Tech: Padma Campbell PRE-BRONCH POST-BRONCH Pre LLN Pred ULN %Pred Post %Pred %Chg SPIROMETRY FVC (L) 2.71 2.84 3.65 4.47 74 FEV1 (L) 1.03 2.44 3.13 3.80 33 FEV1/FVC 0.38 0.75 0.86 0.94 44 PEF L/s (L/sec) 4.03 6.74 8.56 10.37 47 FEF50 (L/sec) 0.36 2.00 4.13 6.25 8 FIF50 (L/sec) 2.47 FEF50/FIF50 0.15 90-100 FIVC (L) 2.43 VFV22-55 (L/sec) 0.29 2.30 3.71 5.46 7 Time (sec) 14.96 FET PEF (sec) 0.04 MACIEL (L) 0.03 Vol Extrap % (%) 1 SPIROMETRY BASELINE ONLY ([id number]) - ordered on 07/02/23 ID: [id number] Name: JAY BARBER Race: White Ht: 62.01 in Wt: 86.86 lbs Age: 28 Gender: Male : 1995 Dx: Cystic fibrosis_ Smoking Hx: Non-smoker Doctor: NABOR VILLASENOR Test Date: 07/24/2023 Site: Tech: Alicia Coello PRE-BRONCH POST-BRONCH Pre LLN Pred ULN %Pred Post %Pred %Chg SPIROMETRY FVC (L) 2.79 2.85 3.65 4.47 76 FEV1 (L) 1.15 2.44 3.14 3.80 36 FEV1/FVC 0.41 0.75 0.86 0.95 48 PEF L/s (L/sec) 4.29 6.74 8.56 10.37 50 FEF50 (L/sec) 0.40 2.01 4.13 6.26 9 FIF50 (L/sec) 3.24 FEF50/FIF50 0.12 90-100 FIVC (L) 2.30 DKP56-76 (L/sec) 0.31 2.31 3.72 5.47 8 Time (sec) 15.62 FET PEF (sec) 0.05 MACIEL (L) 0.04 Vol Extrap % (%) 1 MICROBIOLOGY: Reviewed MICROBIOLOGY SNAPSHOT 2022 07/27/2022 10/22/2022 11/05/2022 11/06/2022 03/05/2023 06/04/2023 [...] with treatment plan. Return to clinic at [facility] in 4 weeks, with spirometry (spirometry baseline). I spent a total of 85 minutes on the date of the service which included preparing to see the patient, dxso-ce-qpht patient care, completing clinical documentation, performing a medically appropriate examination, and counseling and educating the patient/family/caregiver. Electronically Signed: Jean Pierre Kilgore MD, FRANCI, FACP [facility] Adult [facility]yst[facility] Fibrosis [facility]chiect[facility] Respiratory [place] [facility] Adult CF Patients [phone]. Adult patients use option #2 Bronchiectasis (Non-CF) Patients [phone] Chemical Process Project Engineer: Nell Lozano [phone] Email: [email or web address] Office: [phone] February 25, 2024 documented in this encounter [facility] 02-25-2024 History of Presen t illness [...] visit. Either the patient or their legal international representative has been informed of the risks [...] OPAT today. Okay to remove PICC. Notified [facility] at [phone], verbal orders given to Peewee (pharmacist). Called patient to update on plan - no answer, left voicemail advising to stop IV vanc and meropenem at this time. Fiordaliza Mcfarlane RPh 02/25/2024 9:39 AM documented in this encounter [facility] 02-20-2024 Miscellaneous Notes Pt notified office that he received letter from [facility] stating they will not pay for the last 3 days of his hospitalization. SW left [facility] re: likely utilization review had not received all information that required him to stay after initial copat was written. Instructed him to just hang on to the letter. Hospital will likely send necessary documentation to get stay approved. Pt to let me know if he receive further documentation or bill. documented in this encounter [facility] 02-19-2024 Miscellaneous Notes SW handling patient's [...] Patient received a letter from his insurance [employer] regarding his inpatient stay stating he will not be covered for February 12 & . Patient has questions regarding this letter and wants to know should he [facility] or bring the letter to his appointment with Dr. Kilgore next week? Please advise [phone] documented in this encounter [facility] 02-19-2024 History of Presen t illness Narrative [facility] OPAT PHARMACIST VANCOMYCIN DOSING NOTE Patient [...] Friday/Friday unless clinically indicated sooner. 5. Notified [facility] at [phone], verbal orders given to Rupert (pharmacist). Advised [...] questions, please contact Fiordaliza Mcfarlane RPh at [phone]. Age: [age] year old Allergies: ALLERGIES Allergen [...] Readings: Date: Ht: 02/03/2024 157.5 cm (5' 2) CrCl: 46.8 mL/min Labs BUN (mg/dL) Date [...] Fiordaliza Mcfarlane RPh documented in this encounter [facility] 02-18-2024 Miscellaneous Notes Addended by: ZAIDA SANTOS on: 02/18/2024 03:41 PM Modules accepted: Orders documented in this encounter [facility] 02-18-2024 History of Presen t illness [...] 2023 Last OGTT/CFRD: +CFRD -> Follows with [facility] Dexa: Completed on 09/24/23 -> Lowest [...] Ibuprofen: No Referral to Endo: follows with [facility]- next visit scheduled for 03/09/24 Referral to Transplant: Lung and liver discussed extensively with patient during July 2023 hospital admission - pt eventually deferred at hospital discharge EPIC/Phone Messages since last visit: -needed Miralax clean out--stayed on maintenance dose -discussed vitamin supplementation Plan for visit: - Yohana Stuart visit - F/u visit from [facility] admission 02/03/24 - 02/16/24 for CF Exacerbation and Upper GIB - treated with IV Meropenem, Minocycline and Vancomycin while inpatient - transferred to MICU and had EGD done on 02/05/24 that showed two duodenal ulcers (not actively bleeding) - treated with epi injection and clip x 2 - discharged home on IV meropenem and IV vancomycin via PICC line - goes to [facility] for weekly labs and line care (tentative end date of IV abx on 02/23/24) - [place] ordered and scheduled - Should have brought a sputum sample with him - cup mailed to him on 02/18/24 - 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 Lindo - REMIND PATIENT: Has Endocrinology visit scheduled at [place] on 03/09/24 with Stephie Ramirez - needs f/u from his latest DEXA results on 09/22/23 -> lowest T-score -3.1 in L femoral neck - Already has a 3 month f/u visit scheduled with Dr. Kilgore at [facility] on 05/05/24 documented in this encounter [facility] 02-18-2024 History of Presen t illness [...] RT ANNUAL VISIT Needed: NEEDS for 2023 ANNUAL VISIT Needed: NEEDS for 2023 Mental health screen: NEEDS for 2023 ANNUAL Labs Needed: NEEDS for 2023 Last OGTT/CFRD: +CFRD -> Follows with [facility] Dexa: Completed on 09/24/23 -> Lowest [...] hold due to prior NTM) Inhaled Abx: [place] Ibuprofen: No Referral to Endo: follows with [...] [facility] on 02/13/24 Plan for visit: - [facility] visit - Hospital Admission f/u - was at [facility] from 02/03/24 - 02/16/24 for [...] RT, and SW - complete at next [facility] visit on 05/05/24 - REMIND PATIENT: He has a hepatology visit scheduled at [facility] on 04/07/[address] Lindo - REMIND PATIENT: He has an endocrinology visit at [place] with Stephie Ramirez CNP ON 03/09/24 - needs to f/u regarding his bone density results - Already has a 3 month f/u visit with Dr. Kilgore scheduled on 05/05/24 at [facility] documented in this encounter [facility] 02-18-2024 History of Presen t illness [...] to his local [facility] lab location in [place] to have this collected. Orders have been placed. Fiordaliza Mcfarlane RPh 02/18/2024 4:33 PM documented in this encounter [facility] 02-18-2024 Miscellaneous Notes Addended by: FIORDALIZA MCFARLANE on: 02/18/2024 04:35 PM Modules accepted: Orders documented in this encounter [facility] 02-18-2024 Miscellaneous Notes Called patient and asked that he obtain a sputum sample prior to his upcoming appointment next week with Dr. Kilgore in order to drop it off while he's there. Patient agreeable. Sputum cup provided to Java Mobile Developer to mail to patient. documented in this encounter [facility] 02-17-2024 Miscellaneous Notes (RF1) Have you [...] Randall Rodríguez RN documented in this encounter [facility] 02-16-2024 History of Presen t illness Narrative Coordinated care with inpatient primary pulmonary team and CF team. Recommended celiac labs to assess for celiac disease given low albumin and ongoing lower extremity edema. Patient will get outpatient with labs 02/[address] documented in this encounter [facility] 02-15-2024 Miscellaneous Notes Follow up appointment: Hepatology Schedule follow up appointment within 1 week Patient eligible for virtual visit? Schedule with [facility] Provider [facility] Provider: TIA LINDO [[id number]] Testing Ordered Follow Up Reason: CF-related liver disease Please advise and assist with scheduling pt for a f/u w/ Dr. Lindo at the provider's convenience. Thank you! documented in this encounter [facility] 02-13-2024 History of Presen t illness Narrative [...] PICC Team while admitted Home Care Agency: personal vehicle advisor: OP clinic: [facility] for labs and line care [facility] Agency: personal vehicle advisor: [facility] Fax: Have we called HC agency to follow up orders/additional needs? TBD Did we need to contact HC Liaison (Teresa Medina or Mckenna Masterson): Yes or No. Issues: No Labs ordered: CBC w/ Diff CMP Pre-dose Vancomycin Labs once or twice weekly: Twice weekly Days: TBD Patient phone number [phone] Were they contacted? Clinic follow-up appointment date: TBD documented in this encounter [facility] 02-12-2024 History of Presen t illness Narrative PULM FUNCTION SMARTBLOCK: Inpatient: Yes Spirometry: 1 documented in this encounter [facility] 02-09-2024 History of Presen t illness Narrative Images from the original note were not included. [facility] Outpatient Parenteral Antimicrobial Therapy (OPAT) Start Form Patient Info Patient MRN Patient Name Address Date of [id number] Jay Barber [address] [facility] [id number] 1995 Start Date 02/09/2024 Physician Group Cc_main [...] after lab draw. Provider Monitoring Treatment Course Jasmyn Bailon MD Follow up Provider Follow up date/time Appointment type Jasmyn Bailon MD No Follow Up (Regular hours), (Off hours) Address [address] [place] [address] Prescribing Provider's signature - electronically signed by Jasmyn Bailon MD on 02/09/24 at 4:00 PM documented in this encounter [facility] 02-05-2024 History of Past i llness Narrative Problem Noted Date Diagnosed Date Resolved Date Acute bleeding 02/05/2024 02/16/2024 Cystic fibrosis with pulmonary exacerbation 11/05/2022 02/16/2024 documented as of this encounter (statuses as of 02/16/2024) [facility]-07[facility]2024 History of Past illness Narrative* Problem Noted Date Diagnosed Date Resolved Date Acute bleeding 02/05/2024 02/16/2024 Cystic fibrosis with pulmonary exacerbation 11/05/2022 02/16/2024 documented as of this encounter (statuses as of 02/17/2024) [facility] History of Past illness Narrative* Problem Noted Date Diagnosed Date Resolved Date Acute bleeding 02/05/2024 02/16/2024 Cystic fibrosis with pulmonary exacerbation 11/05/2022 02/16/2024 documented as of this encounter (statuses as of 02/17/2024) [facility] History of Past illness Narrative* Problem Noted Date Diagnosed Date Resolved Date Acute bleeding 02/05/2024 02/16/2024 Cystic fibrosis with pulmonary exacerbation 11/05/2022 02/16/2024 documented as of this encounter (statuses as of 02/18/2024) [facility] History of Past illness Narrative* Problem Noted Date Diagnosed Date Resolved Date Acute bleeding 02/05/2024 02/16/2024 Cystic fibrosis with pulmonary exacerbation 11/05/2022 02/16/2024 documented as of this encounter (statuses as of 02/18/2024) [facility] History of Past illness Narrative* Problem Noted Date Diagnosed Date Resolved Date Acute bleeding 02/05/2024 02/16/2024 Cystic fibrosis with pulmonary exacerbation 11/05/2022 02/16/2024 documented as of this encounter (statuses as of 02/18/2024) [facility] History of Past illness Narrative* Problem Noted Date Diagnosed Date Resolved Date Acute bleeding 02/05/2024 02/16/2024 Cystic fibrosis with pulmonary exacerbation 11/05/2022 02/16/2024 documented as of this encounter (statuses as of 02/18/2024) [facility] History of Past illness Narrative* Problem Noted Date Diagnosed Date Resolved Date Acute bleeding 02/05/2024 02/16/2024 Cystic fibrosis with pulmonary exacerbation 11/05/2022 02/16/2024 documented as of this encounter (statuses as of 02/18/2024) [facility] History of Past illness Narrative* Problem Noted Date Diagnosed Date Resolved Date Acute bleeding 02/05/2024 02/16/2024 Cystic fibrosis with pulmonary exacerbation 11/05/2022 02/16/2024 documented as of this encounter (statuses as of 02/18/2024) [facility] History of Past illness Narrative* Problem Noted Date Diagnosed Date Resolved Date Acute bleeding 02/05/2024 02/16/2024 Cystic fibrosis with pulmonary exacerbation 11/05/2022 02/16/2024 documented as of this encounter (statuses as of 02/20/2024) [facility] History of Past illness Narrative* Problem Noted Date Diagnosed Date Resolved Date Acute bleeding 02/05/2024 02/16/2024 Cystic fibrosis with pulmonary exacerbation 11/05/2022 02/16/2024 documented as of this encounter (statuses as of 02/24/2024) [facility] History of Past illness Narrative* Problem Noted Date Diagnosed Date Resolved Date Acute bleeding 02/05/2024 02/16/2024 Cystic fibrosis with pulmonary exacerbation 11/05/2022 02/16/2024 documented as of this encounter (statuses as of 02/25/2024) [facility] History of Past illness Narrative* Problem Noted Date Diagnosed Date Resolved Date Acute bleeding 02/05/2024 02/16/2024 Cystic fibrosis with pulmonary exacerbation 11/05/2022 02/16/2024 documented as of this encounter (statuses as of 03/01/2024) [facility] History of Past illness Narrative* Problem Noted Date Diagnosed Date Resolved Date Acute bleeding 02/05/2024 02/16/2024 Cystic fibrosis with pulmonary exacerbation 11/05/2022 02/16/2024 documented as of this encounter (statuses as of 03/01/2024) [facility] History of Past illness Narrative* Problem Noted Date Diagnosed Date Resolved Date Acute bleeding 02/05/2024 02/16/2024 Cystic fibrosis with pulmonary exacerbation 11/05/2022 02/16/2024 documented as of this encounter (statuses as of 03/02/2024) [facility] History of Past illness Narrative* Problem Noted Date Diagnosed Date Resolved Date Acute bleeding 02/05/2024 02/16/2024 Cystic fibrosis with pulmonary exacerbation 11/05/2022 02/16/2024 documented as of this encounter (statuses as of 03/08/2024) [facility] History of Past illness Narrative* Problem Noted Date Diagnosed Date Resolved Date Acute bleeding 02/05/2024 02/16/2024 Cystic fibrosis with pulmonary exacerbation 11/05/2022 02/16/2024 documented as of this encounter (statuses as of 03/10/2024) [facility] History of Past illness Narrative* Problem Noted Date Diagnosed Date Resolved Date Acute bleeding 02/05/2024 02/16/2024 Cystic fibrosis with pulmonary exacerbation 11/05/2022 02/16/2024 documented as of this encounter (statuses as of 03/18/2024) [facility] Miscellaneous Notes* Telephone Encounter - Zaida Santos [...] abdomen. Let patient know to [facility] ED as soon as he [...] clinical guidance. Jay (Self) documented in this encounterSub[facility] History of Present illness Narrative* Fernando Zhang [...] NEEDS Last OGTT/CFRD: +CFRD -> Follows with [facility] Dexa: Completed on 09/24/23 -> Lowest [...] Ibuprofen: No Referral to Endo: follows with [facility]; scheduled 03/09/24 Referral to Transplant: Lung and liver discussed extensively with patient during July 2023 hospital admission - pt eventually deferred at hospital discharge EPIC/Phone Messages since last visit: -needed Miralax clean out--stayed on maintenance dose -discussed vitamin supplementation Plan for visit: - Sj ordered and scheduled on A90 - arrange bone clinic appt - Encourage patient to make a f/u visit with hepatology? (Has declined recommendations for lung/liver transplant) - Will need annual labs this year - ordered -Will need RD, RT, SW this year -follow up from last visit, he was sick and stayed on minocycline for 3 [address] documented in this encounterSub[facility] History of Present illness Narrative* Stephie Ramirez, ADALI.BUGGY LADLE TENDER - 11/20/2023 11:44 AM EST Subjective Important [...] further kidney damage., 10/2022: prot/creat ratio in the medical center, making appointment with nephrology, 07/2023: prot/creat ratio in the medical center Lipid Profile:10/2013: TC 111, HDL 42, LDL [...] results in care everywhere, 12/2019: results in [facility] everywhere, 01/2020: labs in [facility], 07/2020; Alkaline Phosphatase 725 (45-117), ALT 77 (16-61), AST 163 (15-37), 12/2020: results in care everywhere., 03/2021: results In care everywhere, 12/2021: Alkaline Phosphatase 918 (38-113), bone percent 13.9%, liver percent 86.1 , 12/2022: liver function monitored by CF providers, 03/2023: in the medical center, 08/2023: LFTS in the medical center, 10/2023: LFTS in the medical center Dilated Eye Exam: Patient educated to have ophthalmology visits at least once a year. 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 08/2013: New patient visit for Cystic Fibrosis related Diabetes [facility] prior to today's office visit. Any changes made at our last diabetes management visit were abstracted accordingly (if applicable). Today's Office Visit: Nephrology: has appointment Hepatology: has appointment Hematology: has appointment Lipids: advised to discuss with CF providers, may not be able to treat with high liver enzymes. Endocrinology: we manage patients CFRD only. self monitoring blood glucose data: see dexcom report. Average 14 day SG [...] has been taking, close to 1:10 to 1:15, will use 1:15 with larger amounts of [...] (HCC) History of transfusion Hypertension Liver disease [facility] (current) use of insulin (HCC) Transfusion history [...] as needed for wheezing/shortness of breath. Vit A,C,I-Jwoo-Dlcget (PRESERVISION AREDS) 4,296 mcg-226 mg-90 mg cap [...] instructed twice daily. Blood-Glucose Meter,Continuous (DEXCOM G7 FARROWING MANAGER) misc For monitoring sugars Blood-Glucose Sensor (DEXCOM G7 SENSOR) jean-paul One sensor every 10 days insulin lispro (HUMALOG KWIKPEN INSULIN) 100 unit/mL Dose varies units with meals and sliding scale, using about 30 total units a day Insulin Vaughn, Disposable, (BD ULTRA-FINE YARON PEN NEEDLE) 32 gauge x 5/32 5x/day glucagon (BAQSIMI) 3 mg/actuation nasal spray Use 1 Absaraka in the nose as needed. May repeat [...] this visit. Physical Exam documented in this encounterSub[facility] History of Present illness Narrative* Varsha Thomason LISW - 11/12/2023 4:43 PM EST CYSTIC FIBROSIS SOCIAL WORK PROGRESS NOTE DATE: 11/12/23 TIME: 4:30 PM Jay is here for a follow up appointment. Pt is still working with CF [employer]. W to reach out to [employer] re: possible missed medical records. Pt having a difficult time adjusting to not working. Doesn't feel useful or purposeful. Completed mental health screening today. PHQ9- 7 ELVIS-6 Mental Health Coordination No referrals needed Discussed options such as volunteering, going to the gym, pulmonary rehab, and/or a class, or picking up a new hobby, when he is feeling good. 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 Discussed CF [employer]/exercise grants. He would consider Pulmonary rehab. Will look into local locations for him and have MD send order. SW will f/u with pt re discussed above. CALOS Stubbs-S Cystic Fibrosis Social Work V. [phone] P. [phone] documented in this encounterSub[facility] History of Present illness Narrative* Zaida Santos [...] 03/08/23 Last OGTT/CFRD: +CFRD -> Follows with [facility] Dexa: Completed on 09/24/23 -> Lowest [...] hold due to prior NTM) Inhaled Abx: [place] Ibuprofen: No Referral to Endo: follows with [facility] Referral to Transplant: Lung and liver discussed extensively with patient during July 2023 hospital admission - pt eventually deferred at hospital discharge EPIC/Phone Messages since last visit: -10/17/23 : [facility] with complaints of hemoptysis - was prescribed TXA -09/30/23 : msg asking for disability letter -09/29/23 : Dr. Pete sent message to patient regarding his bone density results - instructed to f/u with Stephie Ramirez in Endo Plan for visit: - [facility] ordered and scheduled for correct floor - F/u regarding DEXA completed on 09/24/23 - did he arrange f/u as instructed? Lowest T-score is -3.1 in left femoral neck - Encourage patient to make a f/u visit with hepatology? (Has declined recommendations for lung/liver transplant) - Needs Mental Health Screening documented in this encounterSub[facility] Miscellaneous Notes* Telephone Encounter - She Pete DO - 10/03/2023 11:29 AM EDT Called and spoke with Vero, pharmacist at [facility]. Explained his adjusted dose due to liver disease. Taking 2 orange pills on even days of the month and 1 orange pill on odd days of the month, No bluepills She Pete DO October 03, 2023 11:31 AM * Telephone Encounter - Daniel Goel - 10/03/2023 10:37 AM EDT Received call from [employer] with [employer] requesting clarification on the directions on the patient's (TRIKAFTA). Is it: Alternate between 2(starting 07/30) and 1 tablet every morning , hold evening dose or Take 2 combination tablets in the morning and take 1 Ivacaftor tablet in the evening. DO NOT crush,chew, or open. Class: Med Update Please call [phone] option 1, option 6 or fax [phone] documented in this encounterSub[facility] History of Present illness Narrative* Sydni [...] IV DATA: Not applicable SIGNED BY: RT Anson(R) September 24, 2023 9:15 AM documented in this encounterSub[facility] History of Present illness Narrative* She Pete [...] 11/12/[address] Dunia Pete, September 24, 2023 1. CYSTIC FIBROSIS PULMONARY [...] ---Referral to ENT for surgical eval. Appt [phone]. 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 Burke France in 2020 for [...] done ---Following with Dr. Francis Ramirez at [facility] ANNUAL SCREENING: ANNUAL LABS: 07/2023 OGTT: NA [...] COVID-19 original vaccine, age 12+ yr, monovalent (PrePayMe - PURPLE TOP) 12/24/2020 01/21/2021 12/05/2021 COVID-19 vaccine, age 12+ yr, bivalent (panOpen-BIONTECH) 12/04/2022 Haemophilus influenzae b (HbOC) vaccine, 4-dose [...] vaccine, quadrivalent, unspecified formulation 05/27/2012 novel influenza (H2Z6-10) vaccine, PF 10/19/2009 pneumococcal (PCV13) vaccine, 13 [...] (HCC) History of transfusion Hypertension Liver disease [facility] (current) use of insulin (HCC) Transfusion history [...] Rash, GI Upset CURRENT OUTPATIENT MEDICATIONS: Vit A,C,S-Mgre-Jojuhb (PRESERVISION AREDS) 4,296 mcg-226 mg-90 mg cap [...] instructed twice daily. Blood-Glucose Meter,Continuous (DEXCOM G7 FARROWING MANAGER) [facility] For monitoring sugars insulin lispro (HUMALOG KWIKPEN INSULIN) 100 unit/mL Dose varies units with meals and sliding scale, using about 30 total units a day Insulin Vaughn, Disposable, (BD ULTRA-FINE YARON PEN NEEDLE) 32 gauge x 5/32 5x/day glucagon (BAQSIMI) 3 mg/actuation nasal spray Use 1 Absaraka in the nose as needed. May repeat [...] 150 mg(n) tablets (TRIKAFTA) Alternate between 2(starting 830) and 1 tablet every morning , hold evening dose ipratropium-albuterol (DUONEB) 0.5 mg-3 mg(2.5 mg base)/3 mL nebu Inhale 3 mL as instructed every 4hours as needed for wheezing/shortness of breath. Blood-Glucose Sensor (DEXCOM G7 SENSOR) jean-paul One [...] recent EKG LAST LAB RESULTS: ---Reviewed in [facility] CBC with diff: WBC 8.00 09/10/2023 RBC 3.22 09/10/2023 Hemoglobin 10.0 09/10/2023 Hematocrit 28.8 09/10/2023 MCV 89.4 09/10/2023 MCH 31.1 09/10/2023 MCHC 34.7 09/10/2023 RDW-CV 14.3 09/10/2023 Platelet Count 185 09/10/2023 MPV 9.2 09/10/2023 Neut% 66.9 09/10/2023 Lymph% 20.1 09/10/2023 Thomas% 8.1 09/10/2023 Eosin% 16.6 11/26/2022 Baso% 0.8 09/10/2023 Abs Neut (ANC) 5.36 09/10/2023 Abs Thomas 0.65 09/10/2023 Abs Eosin 0.30 09/10/2023 Abs [...] 05/29/2018 10.3 06/25/2016 7.0 SPIROMETRY: Reviewed in [facility] MICROBIOLOGY: Reviewed MICROBIOLOGY SNAPSHOT Written and verbal health teaching given to patient, patient verbalizes understanding and agrees with treatment plan. I spent a total of 50 minutes on the date of the service which included preparing to see the patient, [id number] patient care, completing clinical documentation, obtaining and/or reviewing separately obtained history, performing a medically appropriate examination, counseling and educating the pat ient/family/caregiver, ordering medications, tests, or procedures, communicating with other HCPs (not separately reported), independently interpreting results (not separately reported), communicatingresults to the patient/family/caregiver, and care coordination (not separately reported). Electronically Signed: She Pete DO September 24, 2023 documented in this encounterSuburban [facility] History of Present illness Narrative* Zaida Santos [...] 03/08/23 Last OGTT/CFRD: +CFRD -> Follows with [facility] Dexa: NEEDS - last completed on 01/25/2019 [...] None Other issues: Plan for visit: - [facility] office visit - Sj ordered and scheduled - Dexa ordered and scheduled for same day - Needs fibroscan ordered and scheduled - Needs annual RT visit during next [place] visit - Needs Mental Health Screening during next [place] visit documented in this encounterSuburban [facility]09-[facility] Miscellaneous Notes* Telephone Encounter - Sally Schneider APRN.BUGGY LADLE TENDER - 08/21/2023 12:35 PM EDT Called patient , his potassium was elevated on labs from 08/18. He reports feeling pretty good. No issue with swelling or abdominal fluid He has been taking torsemide daily still Plan Kayexalate X 1 dose He will get labs tomorrow repeat CMP and CBC/diff Sally Schneider APRN.BUGGY LADLE TENDER documented in this encounterSuburban [facility] Miscellaneous Notes* Telephone Encounter - Stacie [...] day. Fredo Moreno DO documented in this encounterSuburban Community Hospital [facility] History of Present illness Narrative* Fredo [...] (HCC) History of transfusion Hypertension Liver disease penit[facility] (current) use of insulin (HCC) Transfusion history [...] (BAQSIMI) 3 mg/actuation nasal spray Use 1 Absaraka in the nose as needed. May repeat [...] test strip 3x/day Blood-Glucose Meter,Continuous (DEXCOM G7 FARROWING MANAGER) misc For monitoring sugars Blood-Glucose Sensor (DEXCOM G7 SENSOR) jean-paul One sensor every 10 days Insulin Vaughn, Disposable, (BD ULTRA-FINE YARON PEN NEEDLE) 32 [...] ROS: Constitutional: See above. Neuro: No recent PROCTOR, vertigo, dizziness or imbalance. HEENT: No recent [...] C (100.6 F), height 158 cm (5' 2.21), weight 37.6 kg (83 lb), SpO2 97 [...] Lymph 1.00 - 4.00 k/uL 1.20 1.52 Thomas% % 8.6 11.3 Abs Thomas <0.87 k/uL 0.37 0.78 Eosin% % 8.6 [...] which included preparing to see the patient, [id number] patient care, completing clinical documentation, obtaining and/or reviewing separately obtained history, performing a medically appropriate examination, counseling and educating the pat ient/family/caregiver, ordering medications, tests, or procedures, communicating with other HCPs (not separately reported), and communicating results to the patient/family/caregiver. Fredo Moreno DO documented in this encounterSuburban Community Hospital [facility]09-[facility] History of Present illness Narrative* Cheyanne Kraus RRT - 08/12/2023 10:47 AM EDT Faxed Nebulizer Order, notes, demographics to [facility] Doctor at [phone], ph [phone]. Patient ndd not receive unit from Pulmonary Rehab Coordinator. Unit will be shipped by [facility] . Cheyanne Kraus RRT documented in this encounterSuburban Community Hospital [facility]09-11[facility] History of Present illness Narrative* Stephie Ramirez APRN.BUGGY LADLE TENDER - 08/11/2023 1:33 PM EDT Subjective Date [...] results in care everywhere, 01/2020: labs in [facility], 07/2020; Alkaline Phosphatase 725 (45-117), ALT 77 (16-61), AST 163 (15-37), 12/2020: results in care everywhere., 03/2021: results In care everywhere, 12/2021: Alkaline Phosphatase 918 (38-113), bone percent 13.9%, liver percent 86.1 , 12/2022: liver function monitored by CF providers, 03/2023: in the medical center, 08/2023: LFTS in the medical center Dilated Eye Exam: Patient educated to have ophthalmology visits at least once a year. 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 08/2013: New patient visit for Cystic Fibrosis related Diabetes Previous diabetes related labs from [facility] and [facility] systems reviewed prior to today's office visit. Any changes made at our last diabetes management visit were abstracted accordingly (if applicable). Today's Office Visit: Nephrology: has appointment Hepatology: has appointment Hematology: has appointment Lipids: advised to discuss with CF providers, may not be able to treat with high liver enzymes. Endocrinology: we manage patients CFRD only. self monitoring blood glucose data: see dexcom report. Average 14 day SG [...] has been taking, close to 1:10 to 1:15, will use 1:15 with larger amounts of [...] (HCC) History of transfusion Hypertension Liver disease pen[facility] (current) use of insulin (HCC) Transfusion history [...] instructed twice daily. Blood-Glucose Meter,Continuous (DEXCOM G7 FARROWING MANAGER) [facility] For monitoring sugars Blood-Glucose Sensor (DEXCOM G7 SENSOR) jean-paul One sensor every 10 days insulin lispro (HUMALOG KWIKPEN INSULIN) 100 unit/mL Dose varies units with meals and sliding scale, using about 30 total units a day Insulin Vaughn, Disposable, (BD ULTRA-FINE YARON PEN NEEDLE) 32 gauge x 5/32 5x/day glucagon (BAQSIMI) 3 mg/actuation nasal spray Use 1 Absaraka in the nose as needed. May repeat [...] Objective BP 140/82 Ht 157.5 cm (5' 2) Wt 40 kg (88 lb 1.6 oz) [...] 7. Discussed therapeutic lifestyle changes. Stephie Ramirez APRN.BUGGY LADLE TENDER documented in this encounterSuburban Community Hospital [facility]09-06-[facility]23 Miscellaneous Notes* Telephone Encounter - Varsha Thomason LISW - 08/06/2023 4:15 PM EDT DAVID signed by pt for medical records to be sent to the [facility]. Records to be securely sent to assistance program. documented in this encounterSuburban Community Hospital & [facility]09[facility] History of Present illness Narrative* Jean Pierre Kilgore MD - 08/06/2023 1:52 PM EDT VIRTUAL VISIT PROGRESS NOTE This is a virtual visit using [employer] video visit. It required patient-provider interaction for themedical decision making as documented below. I have communicated my name and active licensure. The patient's identity and physical location wereverified at the time of this visit. 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 Blood-Glucose Meter,Continuous (DEXCOM G7 FARROWING MANAGER) [facility] For monitoring sugars Blood-Glucose Sensor (DEXCOM G7 SENSOR) jean-paul One sensor every 10 days insulin lispro (HUMALOG KWIKPEN INSULIN) 100 unit/mL Dose varies units with meals and sliding scale, using about 30 total units a day Insulin Vaughn, Disposable, (BD ULTRA-FINE YARON PEN NEEDLE) 32 gauge x 5/32 5x/day glucagon (BAQSIMI) 3 mg/actuation nasal spray Use 1 Absaraka in the nose as needed. May repeat [...] to baseline (best FEV1 since transferring to [facility] a year ago) FEV1%: 36% 07/24/23; FEV1%trend: [...] hold due to prior NTM) Inhaled Abx: [place] (off this month) Ibuprofen: No Nebulized short-acting [...] 4 weeks -has annual scheduled 09/16/23 on [facility] [place] -schedule DEXA that day 2. ADVANCED LUNG [...] which included preparing to see the patient, [id number] patient care, and completing clinical documentation Jean Pierre Kilgore MD documented in this encounterSuburban [facility]09-[facility]23 Miscellaneous Notes* Telephone Encounter - Zaida [...] tomorrow with Dr. Kilgore documented in this encounterSuburban Community Hospital [facility]08-30-2023 Miscellaneous Notes* Telephone Encounter - Isaac Gibson - 07/30/2023 11:12 AM EDT 90 DAY SUPPLY request for Albuterol Inhaler Last office visit: 07/17/23 Future Appointment: 08/06/23 Pharmacy: [facility] Please approve or deny as appropriate. documented in this encounterSuburban Community Hospital [facility]08-24-[facility]23 Miscellaneous Notes* Telephone Encounter - Zaida Santos RN - 07/24/2023 3:46 PM EDT Addressed by SW documented in this encounterSuburban Community Hospital [facility]08[facility]24-[facility]23 History of Present illness Narrative* Alicia Coello Tech - 07/24/2023 2:09 PM EDT PULM FUNCTION SMARTBLOCK: Provider: Nabor Villasenor PA-C Inpatient: Yes Spirometry: 1 documented in this encounterSuburban Community Hospital & [facility]08-17-2023 History of Present illness Narrative* Randall Weaver RRT - 2023 9:37 AM EDT PULM FUNCTION SMARTBLOCK: Provider: She Pete DO Inpatient: Yes Spirometry: 1 System: [facility] - [phone] documented in this encounterSuburban Community [facility] History of Present illness Narrative* Tyler Davis Tech - 07/10/2023 1:19 PM EDT PULM FUNCTION SMARTBLOCK: Provider: She Pete DO Spirometry: 1 [id number] documented in this encounterSub[facility] History of Present illness Narrative* Varsha Thomason LISW - 07/02/2023 2:36 PM EDT Annual Cystic Fibrosis Social Work Psychosocial Assessment Date of Assessment: 07/02/23 Participants in Encounter: Jaysebastian ramos Demographic Information Patient Name: Jay Barber Marital [...] unkwn Financial and Community Resources/Issues 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; [facility]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 Annual Household Income: 25,000 Insurance [facility]/Other: Adult [facility] Copay Assistance Program: eligible for [employer], but not needed Financial Concerns: Parking/transportation/medication: parking pass provided; no concerns obtaining or affording medications Daily Care Check in Completed: Yes/No: No Education School:[employer]-psychology major Any developmental issues/delays: none Educational Level of Father of Patient: unkwn Educational Level of Mother of Patient: unkwn Educational Level of Spouse: N/A Social History: -T/F care from [facility] -Advanced lung disease -Has not been interested in pursuing lung transplant -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 He just started this job 2 weeks ago. Requesting letter after admission when he can go back to work. He has [facility] Medicaid and adult [facility] for insurance. No issues obtaining or affording [...] will continue to follow. documented in this [facility]Sub[facility] History of Present illness Narrative* Cayetano Malik RRT - 07/02/2023 2:04 PM EDT PULM FUNCTION SMARTBLOCK: Provider: She Pete DO Spirometry: 1 documented in this encounterSub[facility] History of Present illness Narrative* Sally Schneider APRN.CNP - 07/02/2023 11:00 AM EDT Images from [...] done ---Following with Dr. Francis Ramirez at [facility], last seen 04/07/2023 Latest Reference Range & [...] ---Referral to ENT for surgical eval. Appt [phone]. 8. Severe protein calorie malnutrition - continue ensures 9. Prior Invasive Pulmonary Aspergillus infection/Trichosporonosis - treated with voriconazole by ID reporting consultant Dr. Burke France in 2019 for [...] COVID-19 original vaccine, age 12+ yr, monovalent (PrePayMe - PURPLE TOP) 12/24/2020 01/21/2021 12/05/2021 COVID-19 vaccine, age 12+ yr, bivalent (panOpen-Emergent Views) 12/04/2022 Haemophilus influenzae b (HbOC) vaccine, 4-dose [...] vaccine, quadrivalent, unspecified formulation 05/27/2012 novel influenza (S1B5-43) vaccine, PF 10/19/2009 pneumococcal (PCV13) vaccine, 13 valent (PREVNAR 13) 05/26/2019 pneumococcal (PCV7) vaccine, 7 valent (PREVNAR 7) 01/08/2006 pneumococcal (PPV23) vaccine, 23 valent (PNEUMOVAX 23) 10/23/2011 07/28/2019 poliovirus (IPV) vaccine, inactivated (IPOL) 1993 01/11/1994 05/20/1994 02/13/1995 tetanus diphtheria pertussis (Tdap) vaccine, age 7+ yr (ADACEL, BOOSTRIX) 05/29/2012 Immunization History Administered Date(s) Administered COVID-19 original vaccine, age 12+ yr, monovalent (PrePayMe - PURPLE TOP) 12/24/2020 01/21/2021 12/05/2021 COVID-19 vaccine, age 12+ yr, bivalent (PrePayMe) 12/04/2022 Haemophilus influenzae b (HbOC) vaccine, 4-dose [...] vaccine, quadrivalent, unspecified formulation 05/27/2012 novel influenza (E9D2-29) vaccine, PF 10/19/2009 pneumococcal (PCV13) vaccine, 13 [...] related to cystic fibrosis (HCC) Liver disease 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 Blood-Glucose Meter,Continuous (DEXCOM G7 FARROWING MANAGER) [facility] For monitoring sugars Blood-Glucose Sensor (DEXCOM G7 SENSOR) jean-paul One sensor every 10 days insulin lispro (HUMALOG KWIKPEN INSULIN) 100 unit/mL Dose varies units with meals and sliding scale, using about 30 total units a day Insulin Vaughn, Disposable, (BD ULTRA-FINE YARON PEN NEEDLE) 32 gauge x 5/32 5x/day glucagon (BAQSIMI) 3 mg/actuation nasal spray Use 1 Absaraka in the nose as needed. May repeat [...] Take 10 mg by mouth once daily. acojifucajc-rqimeyseqb-moelevcca (TRIKAFTA) 100-50-75 mg(d) /150 mg (n) tablet [...] recent labs LAST LAB RESULTS: ---Reviewed in [facility] CBC with diff: WBC 6.65 03/24/2023 RBC 4.18 03/24/2023 Hemoglobin 12.9 03/24/2023 Hematocrit 38.6 03/24/2023 MCV 92.3 03/24/2023 MCH 30.9 03/24/2023 MCHC 33.4 03/24/2023 RDW-CV 12.7 03/24/2023 Platelet Count 244 03/24/2023 MPV 10.1 03/24/2023 Neutrophils % 56.6 03/24/2023 Lymph% 24.5 03/24/2023 Thomas% 7.4 03/24/2023 Eosin% 16.6 11/26/2022 Baso% 1.1 03/24/2023 Abs Neut (Segs + Bands) 3.77 03/24/2023 Abs Thomas 0.49 03/24/2023 Abs Eosin 0.66 03/24/2023 Abs [...] which included preparing to see the patient, iqqp-zw-rskk patient care, completing clinical documentation, performing a medically appropriate examination, counseling and educating the patient/family/caregiver, ordering medications, tests, or p rocedures, communicating results to the patient/family/caregiver, and care coordination (not separately reported). Electronically Signed: Sally Schneider CNP July 02, 2023 documented in this encounterSuburban [facility]08[facility] Miscellaneous Notes* Telephone Encounter - Zaida [...] schedule with a CF doctor. Dr. Pete's [place] schedule does not have an opening until mid August. Patient will see Dr. Kilgore if necessary ad possible as well. Please give patient a call to schedule followup in [facility]. documented in this encounterSuburban [facility]07[facility] History of Present illness Narrative* Jean Pierre iKlgore MD - 06/04/2023 4:02 PM EDT Images [...] significantly improved, at baseline (best/2nd best at [facility]) - fatigue improving, near baseline -at work, [...] since 08/2022, 2nd best since transferring to [facility] a year ago) Complicated by chronic respiratory [...] done ---Following with Dr. Francis Ramirez at [facility], last seen 04/07/2023 Latest Reference Range [...] ---Referral to ENT for surgical eval. Appt [phone]. 8. Severe protein calorie malnutrition - continue ensures 9. Prior Invasive Pulmonary Aspergillus infection/Trichosporonosis - treated with voriconazole by ID reporting consultant Dr. Burke France in 2019 for [...] COVID-19 original vaccine, age 12+ yr, monovalent (panOpen-Emergent Views - PURPLE TOP) 12/24/2020 01/21/2021 12/05/2021 COVID-19 vaccine, age 12+ yr, bivalent (PrePayMe) 12/04/2022 Haemophilus influenzae b (HbOC) vaccine, 4-dose [...] vaccine, quadrivalent, unspecified formulation 05/27/2012 novel influenza (N6E8-83) vaccine, PF 10/19/2009 pneumococcal (PCV13) vaccine, 13 [...] pulmozyme if significant sxs. Using [place] on 28/off28; currently off. Glucoses 160-220. Saw Endo in March. Taking Basaglar 6 units with meals Taking enzymes with meals, weight up 1/2 kg. Courses of oral abx since last visit:0 Courses of IV abx since last visit:0 Prednisone use since last visit: 0 ED visits since last visit: 0 Hospitalizations since last visit: 0 Prior exacerbation treatments per [facility] Procedures & IV/Oral Course: -12/15/95-12/23/95 Hospitalized [...] po X 2 weeks -11/13/2010 Hospital/surgery at [place]: Splenorenal shunt --- -03/13/2011 Home treatment Bactrim [...] related to cystic fibrosis (HCC) Liver disease penitentiary (current) use of insulin (HCC) Transfusion history [...] instructed twice daily. Blood-Glucose Meter,Continuous (DEXCOM G7 FARROWING MANAGER) [facility] For monitoring sugars Blood-Glucose Sensor (DEXCOM G7 SENSOR) jean-paul One sensor every 10 days insulin lispro (HUMALOG KWIKPEN INSULIN) 100 unit/mL Dose varies units with meals and sliding scale, using about 30 total units a day Insulin Vaughn, Disposable, (BD ULTRA-FINE YARON PEN NEEDLE) 32 gauge x 5/32 5x/day glucagon (BAQSIMI) 3 mg/actuation nasal spray Use 1 Absaraka in the nose as needed. May repeat [...] tablet by mouth twice daily with meals. urslpukvhft-vabuwxqwgf-nysfhwkfr (TRIKAFTA) 100-50-75 mg(d) /150 mg (n) tablet [...] and PFTs LAST LAB RESULTS: ---Reviewed in [facility] CBC with diff: WBC 6.65 03/24/2023 RBC 4.18 03/24/2023 Hemoglobin 12.9 03/24/2023 Hematocrit 38.6 03/24/2023 MCV 92.3 03/24/2023 MCH 30.9 03/24/2023 MCHC 33.4 03/24/2023 RDW-CV 12.7 03/24/2023 Platelet Count 244 03/24/2023 MPV 10.1 03/24/2023 Neutrophils % 56.6 03/24/2023 Lymph% 24.5 03/24/2023 Thomas% 7.4 03/24/2023 Eosin% 16.6 11/26/2022 Baso% 1.1 03/24/2023 Abs Neut (Segs + Bands) 3.77 03/24/2023 Abs Thomas 0.49 03/24/2023 Abs Eosin 0.66 03/24/2023 Abs [...] 05/29/2018 10.3 06/25/2016 7.0 SPIROMETRY: Reviewed in [facility] SPIROMETRY BASELINE ONLY ([id number]) - ordered on 03/26/23 No textual results for order. ID: [id number] Name: JAY BARBER Race: White Ht: 62.01 in Wt: 89.29 lbs Age: 27 Gender: Male : 1995 Dx: Cystic Fibrosis - Unspecified. May include CFTR disorder. Smoking Hx: Non-smoker Doctor: SHE PETE Test Date: 06/04/2023 Site: [facility] [employer] [place] [employer] (WCG): Kaylen Daigle PRE-BRONCH POST-BRONCH Pre LLN Pred ULN %Pred Post %Pred %Chg SPIROMETRY FVC (L) 2.77 2.85 3.66 4.48 75 FEV1 (L) 0.92 2.44 3.14 3.80 29 FEV1/FVC 0.33 0.75 0.86 0.95 38 PEF L/s (L/sec) 3.86 6.74 8.56 10.37 45 FEF50 (L/sec) 0.32 2.01 4.14 6.26 7 FIF50 (L/sec) 2.95 FEF50/FIF50 0.11 90-100 FIVC (L) 2.65 QAK19-79 (L/sec) 0.28 2.32 3.73 5.47 7 Time (sec) 14.66 FET PEF (sec) 0.04 MACIEL (L) 0.02 Vol Extrap % (%) 1 SPIROMETRY BASELINE ONLY ([id number]) - ordered on 03/19/23 No textual results for order. ID: [id number] Name: JAY BARBER Race: White Ht: 62.01 in Wt: 90.39 lbs Age: 27 Gender: Male : 1995 Dx: Cystic fibrosis_ Smoking Hx: Non-smoker Doctor: SALLY SCHNEIDER Test Date: 03/19/2023 Site: [facility]: Kaylen Daigle PRE-BRONCH POST-BRONCH Pre LLN Pred ULN %Pred Post %Pred %Chg SPIROMETRY FVC (L) 2.39 3.28 4.07 4.87 58 FEV1 (L) 0.80 2.75 3.44 4.11 23 FEV1/FVC 0.34 0.73 0.84 0.94 39 PEF L/s (L/sec) 3.54 6.74 8.55 10.37 41 FEF50 (L/sec) 0.28 2.02 4.15 6.27 6 FIF50 (L/sec) 2.97 FEF50/FIF50 0.10 90-100 FIVC (L) 2.38 WMM80-56 (L/sec) 0.24 2.33 3.74 5.48 6 Time (sec) 14.38 FET PEF (sec) 0.04 MACIEL (L) 0.02 Vol Extrap % (%) 1 SPIROMETRY BASELINE ONLY ([id number]) - ordered on 03/05/23 No textual results for order. ID: [id number] Name: JAY BARBER Race: White Ht: 62.01 in Wt: 86.86 lbs Age: 27 Gender: Male : 1995 Dx: Cystic Fibrosis - Unspecified. May include CFTR disorder. Smoking Hx: Non-smoker Doctor: SHE PETE Test Date: 03/05/2023 Site: [facility]: Kaylen Daigle PRE-BRONCH POST-BRONCH Pre LLN Pred ULN %Pred Post %Pred %Chg SPIROMETRY FVC (L) 2.43 3.28 4.07 4.87 59 FEV1 (L) 0.86 2.75 3.44 4.11 24 FEV1/FVC 0.35 0.73 0.85 0.94 41 PEF L/s (L/sec) 3.95 6.74 8.55 10.37 46 FEF50 (L/sec) 0.33 2.02 4.15 6.27 8 FIF50 (L/sec) 3.13 FEF50/FIF50 0.11 90-100 FIVC (L) 2.14 FTP15-54 (L/sec) 0.25 2.33 3.74 5.48 6 Time (sec) 14.16 FET PEF (sec) 0.04 MACIEL (L) 0.02 Vol Extrap % (%) 1 SPIROMETRY BASELINE ONLY ([id number]) - ordered on 12/04/22 ID: [id number] Name: JAY BARBER Race: White Ht: 62.01 in Wt: 89.51 lbs Age: 27 Gender: Male : 1995 Dx: Cystic fibrosis_ Smoking Hx: Non-smoker Doctor: SHE PETE Test Date: 12/04/2022 Site: [facility] Tech: Kaylen Diagle PRE-BRONCH POST-BRONCH Pre LLN Pred ULN %Pred Post %Pred %Chg SPIROMETRY FVC (L) 2.16 3.29 4.08 4.88 52 FEV1 (L) 0.75 2.75 3.44 4.11 21 FEV1/FVC 0.35 0.73 0.85 0.94 40 PEF L/s (L/sec) 3.59 6.73 8.55 10.37 41 FEF50 (L/sec) 0.24 2.03 4.16 6.28 5 FIF50 (L/sec) 2.45 FEF50/FIF50 0.10 90-100 FIVC (L) 2.04 BDT00-15 (L/sec) 0.20 2.34 3.75 5.49 5 Time (sec) 14.92 FET PEF (sec) 0.04 MACIEL (L) 0.02 Vol Extrap % (%) 1 Comments: ATS/ERS acceptability and repeatability standards for spirometry met. //KS SPIROMETRY BASELINE ONLY ([id number]) - ordered on 11/20/22 PRE-BRONCH POST-BRONCH Pred LLN ULN Actual %Pred Actual %Chng SPIROMETRY FVC (L) 4.08 3.29 4.88 2.34 57 FEV1 (L) 3.44 2.75 4.11 0.82 23 FEV1/FVC 0.85 0.73 0.94 0.35 41 FEF25 (L/sec) 0.54 FEF50 (L/sec) 4.16 2.03 6.28 0.27 6 FEF75 (L/sec) 1.51 0.80 2.67 0.10 6 LPK87-03 (L/sec) 3.75 2.34 5.50 0.22 5 PEF L/s (L/sec) 8.55 6.73 10.37 3.81 44 FIVC (L) 2.25 FIF50 (L/sec) 2.88 PIF (L/sec) 3.14 Time (sec) 14.45 MACIEL (L) 0.02 FET PEF (sec) 0.04 SPIROMETRY BASELINE ONLY ([id number]) - ordered on 11/05/22 PRE-BRONCH POST-BRONCH Pred LLN ULN Actual %Pred Actual %Chng SPIROMETRY FVC (L) 4.08 3.29 4.88 1.72 42 FEV1 (L) 3.44 2.75 4.11 0.62 17 FEV1/FVC 0.85 0.73 0.94 0.36 42 FEF25 (L/sec) 0.42 FEF50 (L/sec) 4.16 2.04 6.28 0.22 5 FEF75 (L/sec) 1.51 0.80 2.68 0.10 6 LLP69-35 (L/sec) 3.75 2.34 5.50 0.17 4 PEF L/s (L/sec) 8.55 6.73 10.37 2.68 31 FIVC (L) 1.30 FIF50 (L/sec) 2.06 PIF (L/sec) 2.06 Time (sec) 13.10 MACIEL (L) 0.03 FET PEF (sec) 0.07 MICROBIOLOGY: Reviewed MICROBIOLOGY SNAPSHOT Written and verbal health teaching given to patient, patient verbalizes understanding and agrees with treatment plan. Electronically Signed: eJan Pierre Kilgore MD, FRANCI, FACP [facility] Respiratory [place] [facility] Adult CF Patients [phone]. Adult patients use option #2 Bronchiectasis (Non-CF) Patients [phone] Chemical Process Project Engineer: Nell Lozano [phone] Email: [email or web address] Office: [phone] June 04, 2023 MICROBIOLOGY: Reviewed MICROBIOLOGY SNAPSHOT 03/05/2023 Culture Few Burkholderia cepacia complex Abnormal Many normal respiratory vicky Abnormal No Pseudomonas aeruginosa isolated. No Staphylococcus aureus isolated. Hx MRSA within the last year Electronically Signed: Jean Pierre Kilgore MD, FRANCI, FACP [facility] Respiratory [place] [facility] Adult CF Patients [phone]. Adult patients use option #2 Bronchiectasis (Non-CF) Patients [phone] Chemical Process Project Engineer: Nell Lozano [phone] Email: [email or web address] Office: [phone] March 05, 2023 documented in this encounterSuburban Community Hospital [facility] History of Present illness Narrative* Kaylen Solomon - 06/04/2023 3:36 PM EDT PULM FUNCTION SMARTBLOCK: Provider: Jean Pierre Kilgore MD Spirometry: 1 documented in this encounterSuburban Community Hospital [facility]07-[facility]23 Miscellaneous Notes* Telephone Encounter - Zaida Santos RN - 06/02/2023 4:12 PM EDT Called patient regarding abdominal xray results. Patient states he had not been taking Miralax thispast week as he should. Educated patient to start taking Miralax again as he has done previously (2to 3 times a day). No further questions/concerns from patient at this time. 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 05/19 Fernando called him to [facility] improving Other issues: Plan for visit: culture documented in this encounterSuburban Community Hospital [facility]06-28[facility]23 Miscellaneous Notes* Telephone Encounter - Daniel Goel - 05/28/2023 11:46 AM EDT Patient called requesting a follow-up appointment with Dr. Pete or Dr. Kilgore. Admin has sent a message to schedulers to contact patient for an appointment. [phone] documented in this encounterSuburban Community Hospital [facility]06-19[facility]23 Miscellaneous Notes* Telephone Encounter - Fernando [...] reassess Fernando Zhang RD documented in this encounterSuburban Community Hospital [facility]05-08-[facility] Instructions* Patient Instructions* Stephie Ramirez APRN.ARIAS - 04/07/2023 2:45 PM EDT Your new [...] an additional 3 Units. documented in this encounterSuburban Community Hospital [facility] History of Present illness Narrative* Stephie [...] results in care everywhere, 01/2020: labs in [facility], 07/2020; Alkaline Phosphatase 725 (45-117), ALT 77 (16-61), AST 163 (15-37), 12/2020: results in care everywhere., 03/2021: results In care everywhere, 12/2021: Alkaline Phosphatase 918 (38-113), bone percent 13.9%, liver percent 86.1 , 12/2022: liver function monitored by CF providers, 03/2023: in the medical center Dilated Eye Exam: Patient educated to have ophthalmology visits at least once a year. 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 08/2013: New patient visit for Cystic Fibrosis related Diabetes Previous diabetes related labs from [facility] and Care-everywhere systems reviewed prior to today's [...] high liver enzymes. self monitoring blood glucose data: see dexcom report. 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 Blood-Glucose Meter,Continuous (DEXCOM G7 FARROWING MANAGER) [facility] For monitoring sugars Blood-Glucose Sensor (DEXCOM G7 SENSOR) jean-paul One sensor every 10 days insulin lispro (HUMALOG KWIKPEN INSULIN) 100 unit/mL Dose varies units with meals and sliding scale, using about 30 total units a day Insulin Vaughn, Disposable, (BD ULTRA-FINE YARON PEN NEEDLE) 32 gauge x 5/32 5x/day glucagon (BAQSIMI) 3 mg/actuation nasal spray Use 1 Absaraka in the nose as needed. May repeat [...] tablet by mouth twice daily with meals. sjxpoqxtnnb-obchkvegts-nywmnxgbu (TRIKAFTA) 100-50-75 mg(d) /150 mg (n) tablet [...] Objective BP 148/78 Ht 157.5 cm (5' 2) Wt 42.1 kg (92 lb 12.8 oz) [...] changes. Stephie Ramirez APRN.ARIAS documented in this encounterSuburban Community Hospital [facility]05-[facility] History of Present illness Narrative* Stephie [...] results in care everywhere, 01/2020: labs in [facility], 07/2020; Alkaline Phosphatase 725 (45-117), ALT 77 (16-61), AST 163 (15-37), 12/2020: results in care everywhere., 03/2021: results In care everywhere, 12/2021: Alkaline Phosphatase 918 (38-113), bone percent 13.9%, liver percent 86.1 , 12/2022: liver function monitored by CF providers, 03/2023: in the medical center Dilated Eye Exam: Patient educated to have ophthalmology visits at least once a year. 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 08/2013: New patient visit for Cystic Fibrosis related Diabetes Previous diabetes related labs from [facility] and [facility]where systems reviewed prior to today's office visit. [...] high liver enzymes. self monitoring blood glucose data: see dexcom report. Average 14 day SG [...] dose: Novolog 1:10 Sliding Scale parameters: Novolog 1:25/150--admits hasn't been using corrections, was using a [...] related to cystic fibrosis (HCC) Liver disease penitentiary (current) use of insulin (HCC) Transfusion history [...] Puff as instructed twice daily. Blood-Glucose Meter,Continuous ([employer]Cool[employer] Solutions G7 FARROWING MANAGER) [facility] For monitoring sugars Blood-Glucose Sensor (DEXCOM G7 SENSOR) jean-paul One sensor every 10 days insulin lispro (HUMALOG KWIKPEN INSULIN) 100 unit/mL Dose varies units with meals and sliding scale, using about 30 total units a day Insulin Vaughn, Disposable, (BD ULTRA-FINE YARON PEN NEEDLE) 32 gauge x 5/32 5x/day glucagon (BAQSIMI) 3 mg/actuation nasal spray Use 1 Absaraka in the nose as needed. May repeat [...] tablet by mouth twice daily with meals. onxfybbnbvc-jvqxjxuwgo-rnzfeybxu (TRIKAFTA) 100-50-75 mg(d) /150 mg (n) tablet [...] this visit. Physical Exam documented in this [facility]05-[facility] Nurse Note* Sissy Calhoun RN - 04/01/2023 3:07 PM EDT PICC line removed. Flushed with 10ml NS prior 41cm intact. Pt states no complaints at this time. documented in this [facility]04-28-[facility] Nurse Note* Peewee Vela RN - 03/28/2023 4:31 PM EDT Stop copat, picc line removal ordered by pulm service. Orders relayed to [facility]. Peewee Vela RN documented in this [facility]04-[facility] History of Present illness Narrative* She Pete, - 03/26/2023 7:57 AM EDT Images from [...] how he feels next week --> [facility] - [phone] - left upper extremity PICC intact, skin [...] ---Referral to ENT for surgical eval. Appt [phone]. Severe protein calorie malnutrition - continue ensures - to see Fenrando today Prior Invasive Pulmonary Aspergillus infection/Trichosporonosis - treated with voriconazole by ID reporting consultant Dr. Burke France in 2020 for [...] done ---Following with Dr. 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 rqnnwheytcc-cwrzqzvrsk-yuolnyiej (TRIKAFTA) 100-50-75 mg(d) /150 mg (n) tablet [...] (BAQSIMI) 3 mg/actuation nasal spray Use 1 Absaraka in the nose as needed. May repeat [...] recent EKG LAST LAB RESULTS: ---Reviewed in [facility] CBC with diff: WBC 6.65 03/24/2023 RBC 4.18 03/24/2023 Hemoglobin 12.9 03/24/2023 Hematocrit 38.6 03/24/2023 MCV 92.3 03/24/2023 MCH 30.9 03/24/2023 MCHC 33.4 03/24/2023 RDW-CV 12.7 03/24/2023 Platelet Count 244 03/24/2023 MPV 10.1 03/24/2023 Neutrophils % 56.6 03/24/2023 Lymph% 24.5 03/24/2023 Thomas% 7.4 03/24/2023 Eosin% 16.6 11/26/2022 Baso% 1.1 03/24/2023 Abs Neut (Segs + Bands) 3.77 03/24/2023 Abs Thomas 0.49 03/24/2023 Abs Eosin 0.66 03/24/2023 Abs [...] which included preparing to see the patient, mkzf-qm-qzxb patient care, completing clinical documentation, obtaining and/or reviewing separately obtained history, performing a medically appropriate examination, ordering medications, tests, or procedures, communicating with other HCPs (not separately reported), and care coordination (not separately reported). Electronically Signed: She Pete DO March 19, 2023 documented in this encounterSuburban Community Hospital [facility]04-20-[facility] Nurse Note* Lou Westbrook RN - 03/20/2023 2:53 PM EDT Order received from Dr Michel to extend COPAT until 03/28. Call placed to [facility] Care to update on extension. Verbal given to Sissy. documented in this encounterSuburban [facility]04-20-2023 Miscellaneous Notes* Telephone Encounter - Anabel [...] of relapse in his symptoms. His CF sky cap, Dr. Pete, would like to extend his Copat to 03/28. I relayed that I thought this was reasonable. Since the CF team is following so closely, I told himwe could cancel the Friday appointment. Plan: I will extend his copat to 03/28. Anabel Michel MD Infectious Disease documented in this encounterSuburban Community Hospital [facility]04-20-2023 Miscellaneous Notes* Telephone Encounter - Daniel Goel - 03/20/2023 1:40 PM EDT Received call from Demetrius with [facility] looking for clarification. Would it be appropriate to send an order for pre medication IV Benadryl to take before Vancomycin? Okay to leave a message if appropriate [phone] documented in this encounterSuburban Community [facility]04-20-[facility]23 History of Present illness Narrative* Fernando [...] BID CFRD: Present, follows with endo at [facility] CGM: Dexcom G7 Insulin regimen: Basaglar 8 units HS and humalog with meals Oral diabetic agents: none DEXA: Needs Low bone density on [place] DEXA in 2019 GI Symptoms: Reports no [...] kg (actual body weight) Estimated Calorie Needs: 6533-8982 (40-50 kcal/kg) Estimated Protein Needs: 62-82 (1.5-2.0 g/kg IBW) Estimated Fluid Needs: 2666-3953 (1mL/kcal) Activity: Activities of Daily Living: Active 50% of the day. 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) Additional Activity: Sedentary (Little or no exercise: <1x/week) Anthropometrics: Height: Last 1 Encounter Ht Readings: Date: Ht: 03/20/2023 157.5 cm (5' 2) Current weight: Last 1 Encounter Wt Readings: [...] Barber DATE: 03/20/2023 TIME: 12:13 PM PAGER: [phone] documented in this encounterSuburban [facility] Hospital [facility]04-19-2023 History of Present illness Narrative* Kaylen Solomon - 03/19/2023 3:50 PM EDT ANNUAL CYSTIC [...] X 5 minutes Microwave X 5 minutes Process Analyst 158 degrees X 30 minutes Electric steam sterilizer (baby bottle sterilizer) Cold method: Soak in 70% isopropyl alcohol X 5 minutes, rinse with sterile water Soak in 3% hydrogen peroxide X 30 minutes, rinse with sterile water Nebulizer Care at Home document Replacment supply schedule and provider: CPAP/BiPAP DME 6. 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 Recommendations include: 30 minutes, 3-5 X weekly and a goal of 150 minutes/week 7. EDUCATION/OTHER: ZephyRX: 8. SUMMARY: Pt starting using Duoneb Friday due to illness. Pt encouraged to get regular exercise 3-5 time per week. documented in this encounterSuburban [facility]04-17-2023 History of Present illness Narrative* She Pete, DO - 03/17/2023 9:55 AM EDT CF Pre-Clinic Checklist PRE-TRANSPLANT Last CF clinic visit date: 03/05/2023 Dr. Kilgore Microbiology: MRSA B Cepacia complex (vietnamiensis) Pseudomonas Mutations: A026vul & 1898+1G>Q Other medical complications: ---Advanced stage [...] Sound: needs fibroscan this year (last abd 07/27/2022) (Every 2 years if LFT's normal) [...] ready for transplant referral? documented in this encounterSuburban [facility]04-06-2023 Miscellaneous Notes* Telephone Encounter - PRABHA Arriaga - 03/06/2023 2:57 PM EDT I called Jay to discuss direct admit process. He did not answer. I left a voicemail asking him to give me a call back when he gets a chance. * Telephone Encounter - Radha aCrvajal - 03/06/2023 12:35 PM EDT Patient called [...] location, bed, etc. Admin transferred to the transfer and pumphouse operator who took ownership of his admission. 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 He is well cared for by his team including Dr. Kilgore, Tamara Hale and Ms. Schneider from the Adult [...] out scheduled this weekend at [facility]. I gave him my email address and work number so he could contact me when ready. He was amenable to this plan. He expressed his appreciation for the call and knowing that such resources were more easily accessible than he had thought. Alex Pinon MD March 06, 2023 1:22 PM documented in this encounterSuburban [facility]04-05-2023 History of Present illness Narrative* Jean [...] ---Referral to ENT for surgical eval. Appt [phone]. CYSTIC FIBROSIS RELATED DIABETES ---The standard medical therapy for CFRD is subcutaneous insulin (oral diabetic agents should not be used); ---Patient currently on insulin therapy. ---Self monitored blood glucose 3 times per day ---Most recent hgA1c noted. ---Following with Dr. 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 Burke France in 2020 for [...] of yet Prior exacerbation treatments per [facility] Procedures & IV/Oral Course: -12/15/95-12/23/95 Hospitalized [...] po X 2 weeks -11/13/2010 Hospital/surgery at [place]: Splenorenal shunt --- -03/13/2011 Home treatment Bactrim [...] booster vaccine, age 12+ yr, bivalent (PFIZER-BIONTECH) 12/04/2022 COVID-19 original vaccine, age 12+ yr, monovalent (PFIZER-BIONTECH - PURPLE TOP) 12/24/2020 01/21/2021 12/05/2021 Haemophilus [...] vaccine, quadrivalent, unspecified formulation 05/27/2012 novel influenza (Z6Y2-44) vaccine, PF 10/19/2009 pneumococcal (PCV13) vaccine, 13 [...] related to cystic fibrosis (HCC) Liver disease 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 May repeat [...] Take 10 mg by mouth once daily. dnkdyqjurnj-kbdamctrfh-zqrzacghv (TRIKAFTA) 100-50-75 mg(d) /150 mg (n) tablet [...] recent labs LAST LAB RESULTS: ---Reviewed in [facility] Latest Reference Range & Units 07/17/22 10:26 [...] Neutrophils % 65.6 02/26/2023 Lymph% 21.0 02/26/2023 Thomas% 7.8 02/26/2023 Eosin% 16.6 11/26/2022 Baso% 1.5 02/26/2023 Abs Neut (Segs + Bands) 3.03 02/26/2023 Abs Thomas 0.36 02/26/2023 Abs Eosin 0.17 02/26/2023 Abs [...] 05/29/2018 10.3 06/25/2016 7.0 SPIROMETRY: Reviewed in [facility] ID: [id number] Name: JAY BARBER Race: White Ht: 62.01 in Wt: 86.86 lbs Age: 27 Gender: Male : 1995 Dx: Cystic Fibrosis - Unspecified. May include CFTR disorder. Smoking Hx: Non-smoker Doctor: SHE PETE Test Date: 03/05/2023 Site: Critical access hospital: [facility] PRE-BRON[facility] POST-BRONCH Pre LLN Pred ULN %Pred Post %Pred %Chg SPIROMETRY FVC (L) 2.43 3.28 4.07 4.87 59 FEV1 (L) 0.86 2.75 3.44 4.11 24 FEV1/FVC 0.35 0.73 0.85 0.94 41 PEF L/s (L/sec) 3.95 6.74 8.55 10.37 46 FEF50 (L/sec) 0.33 2.02 4.15 6.27 8 FIF50 (L/sec) 3.13 FEF50/FIF50 0.11 90-100 FIVC (L) 2.14 LWD77-54 (L/sec) 0.25 2.33 3.74 5.48 6 Time (sec) 14.16 FET PEF (sec) 0.04 MACIEL (L) 0.02 Vol Extrap % (%) 1 SPIROMETRY BASELINE ONLY ([id number]) - ordered on 12/04/22 ID: [id number] Name: JAY BARBER Race: White Ht: 62.01 in Wt: 89.51 lbs Age: 27 Gender: Male : 1995 Dx: Cystic fibrosis_ Smoking Hx: Non-smoker Doctor: SHE PETE Test Date: 12/04/2022 Site: [facility] Tech: [facility] PRE-BRONCH POST-BRONCH Pre LLN Pred ULN %Pred Post %Pred %Chg SPIROMETRY FVC (L) 2.16 3.29 4.08 4.88 52 FEV1 (L) 0.75 2.75 3.44 4.11 21 FEV1/FVC 0.35 0.73 0.85 0.94 40 PEF L/s (L/sec) 3.59 6.73 8.55 10.37 41 FEF50 (L/sec) 0.24 2.03 4.16 6.28 5 FIF50 (L/sec) 2.45 FEF50/FIF50 0.10 90-100 FIVC (L) 2.04 OFV14-34 (L/sec) 0.20 2.34 3.75 5.49 5 Time (sec) 14.92 FET PEF (sec) 0.04 MACIEL (L) 0.02 Vol Extrap % (%) 1 Comments: ATS/ERS acceptability and repeatability standards for spirometry met. //KS SPIROMETRY BASELINE ONLY ([id number]) - ordered on 11/20/22 PRE-BRONCH POST-BRONCH Pred LLN ULN Actual %Pred Actual %Chng SPIROMETRY FVC (L) 4.08 3.29 4.88 2.34 57 FEV1 (L) 3.44 2.75 4.11 0.82 23 FEV1/FVC 0.85 0.73 0.94 0.35 41 FEF25 (L/sec) 0.54 FEF50 (L/sec) 4.16 2.03 6.28 0.27 6 FEF75 (L/sec) 1.51 0.80 2.67 0.10 6 PQX39-33 (L/sec) 3.75 2.34 5.50 0.22 5 PEF L/s (L/sec) 8.55 6.73 10.37 3.81 44 FIVC (L) 2.25 FIF50 (L/sec) 2.88 PIF (L/sec) 3.14 Time (sec) 14.45 MACIEL (L) 0.02 FET PEF (sec) 0.04 SPIROMETRY BASELINE ONLY ([id number]) - ordered on 11/05/22 PRE-BRONCH POST-BRONCH Pred LLN ULN Actual %Pred Actual %Chng SPIROMETRY FVC (L) 4.08 3.29 4.88 1.72 42 FEV1 (L) 3.44 2.75 4.11 0.62 17 FEV1/FVC 0.85 0.73 0.94 0.36 42 FEF25 (L/sec) 0.42 FEF50 (L/sec) 4.16 2.04 6.28 0.22 5 FEF75 (L/sec) 1.51 0.80 2.68 0.10 6 JSP67-44 (L/sec) 3.75 2.34 5.50 0.17 4 PEF L/s (L/sec) 8.55 6.73 10.37 2.68 31 FIVC (L) 1.30 FIF50 (L/sec) 2.06 PIF (L/sec) 2.06 Time (sec) 13.10 MACIEL (L) 0.03 FET PEF (sec) 0.07 MICROBIOLOGY: Reviewed MICROBIOLOGY SNAPSHOT 11/05/2022 Moderate Methicillin resistant Staphylococcus aureus Abnormal [place] PBP2a SA Culture [place] Test PBP2a was detected by an immunochromatographic assay. PBP2a is encoded for by the mecA gene. This isolate is methicillin-resistant. Few Burkholderia cepacia complex Abnormal No Pseudomonas aeruginosa isolated. CF Pulmonary Exacerbation (MRSA, B Cepacia complex- vietnamiensis), moderate Failed PO Bactrim DS PO BID, Levofloxacin 750mg daily (took for 5 days) Continue JOAO [facility] Plan for inpatient admission with PICC Lung [...] Signed: Jean Pierre Kilgore MD, FRANCI, FACP [facility] Respiratory [place] [facility] Adult CF Patients [phone]. Adult patients use option #2 Bronchiectasis (Non-CF) Patients [phone] Chemical Process Project Engineer: Nell Lozano [phone] Email: [email or web address] Office: [phone] March 05, 2023 documented in this encounterSuburban Community Hospital & [facility]04-05-2023 History of Present illness Narrative* Kaylen Solomon - 03/05/2023 3:53 PM EDT PULM FUNCTION SMARTBLOCK: Provider: Jean Pierre Kilgore MD Spirometry: 1 documented in this encounterSuburban Community Hospital & [facility]03-29-2023 History of Present illness Narrative* Jean [...] MRSA and B Cepacia. Continue Airway clearance, [place] Let us know if you worsen Follow [...] ---Referral to ENT for surgical eval. Appt [phone]. CYSTIC FIBROSIS RELATED DIABETES ---The standard medical therapy for CFRD is subcutaneous insulin (oral diabetic agents should not be used); ---Patient currently on insulin therapy. ---Self monitored blood glucose 3 times per day ---Most recent hgA1c noted. ---Following with Dr. 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 May repeat [...] tablet by mouth twice daily with meals. ypwzhjgpwrl-phhehshuxc-idqwubfha (TRIKAFTA) 100-50-75 mg(d) /150 mg (n) tablet [...] recent labs LAST LAB RESULTS: ---Reviewed in [facility] CBC with diff: WBC 10.30 12/03/2022 RBC 3.80 12/03/2022 Hemoglobin 11.9 12/03/2022 Hematocrit 34.0 12/03/2022 MCV 89.5 12/03/2022 MCH 31.3 12/03/2022 MCHC 35.0 12/03/2022 RDW-CV 13.9 12/03/2022 Platelet Count 214 12/03/2022 MPV 9.7 12/03/2022 Neutrophils % 39.5 12/03/2022 Lymph% 35.0 12/03/2022 Thomas% 9.5 12/03/2022 Eosin% 16.6 11/26/2022 Baso% 0.7 12/03/2022 Abs Neut (Segs + Bands) 4.08 12/03/2022 Abs Thomas 0.98 12/03/2022 Abs Eosin 1.54 12/03/2022 Abs [...] 05/29/2018 10.3 06/25/2016 7.0 SPIROMETRY: Reviewed in [facility] SPIROMETRY BASELINE ONLY ([id number]) - ordered on 12/04/22 ID: [id number] Name: JAY BARBER Race: White Ht: 62.01 in Wt: 89.51 lbs Age: 27 Gender: Male : 1995 Dx: Cystic fibrosis_ Smoking Hx: Non-smoker Doctor: SHE PETE Test Date: 12/04/2022 Site: Critical access hospital: [facility] PRE-BRON[facility] POST-BRONCH Pre LLN Pred ULN %Pred Post %Pred %Chg SPIROMETRY FVC (L) 2.16 3.29 4.08 4.88 52 FEV1 (L) 0.75 2.75 3.44 4.11 21 FEV1/FVC 0.35 0.73 0.85 0.94 40 PEF L/s (L/sec) 3.59 6.73 8.55 10.37 41 FEF50 (L/sec) 0.24 2.03 4.16 6.28 5 FIF50 (L/sec) 2.45 FEF50/FIF50 0.10 90-100 FIVC (L) 2.04 ZNP96-90 (L/sec) 0.20 2.34 3.75 5.49 5 Time (sec) 14.92 FET PEF (sec) 0.04 MACIEL (L) 0.02 Vol Extrap % (%) 1 Comments: ATS/ERS acceptability and repeatability standards for spirometry met. //KS SPIROMETRY BASELINE ONLY ([id number]) - ordered on 11/20/22 PRE-BRONCH POST-BRONCH Pred LLN ULN Actual %Pred Actual %Chng SPIROMETRY FVC (L) 4.08 3.29 4.88 2.34 57 FEV1 (L) 3.44 2.75 4.11 0.82 23 FEV1/FVC 0.85 0.73 0.94 0.35 41 FEF25 (L/sec) 0.54 FEF50 (L/sec) 4.16 2.03 6.28 0.27 6 FEF75 (L/sec) 1.51 0.80 2.67 0.10 6 WFM96-38 (L/sec) 3.75 2.34 5.50 0.22 5 PEF L/s (L/sec) 8.55 6.73 10.37 3.81 44 FIVC (L) 2.25 FIF50 (L/sec) 2.88 PIF (L/sec) 3.14 Time (sec) 14.45 MACIEL (L) 0.02 FET PEF (sec) 0.04 SPIROMETRY BASELINE ONLY ([id number]) - ordered on 11/05/22 PRE-BRONCH POST-BRONCH Pred LLN ULN Actual %Pred Actual %Chng SPIROMETRY FVC (L) 4.08 3.29 4.88 1.72 42 FEV1 (L) 3.44 2.75 4.11 0.62 17 FEV1/FVC 0.85 0.73 0.94 0.36 42 FEF25 (L/sec) 0.42 FEF50 (L/sec) 4.16 2.04 6.28 0.22 5 FEF75 (L/sec) 1.51 0.80 2.68 0.10 6 RHT22-86 (L/sec) 3.75 2.34 5.50 0.17 4 PEF L/s (L/sec) 8.55 6.73 10.37 2.68 31 FIVC (L) 1.30 FIF50 (L/sec) 2.06 PIF (L/sec) 2.06 Time (sec) 13.10 MACIEL (L) 0.03 FET PEF (sec) 0.07 MICROBIOLOGY: Reviewed MICROBIOLOGY SNAPSHOT CF Pulmonary Exacerbation (MRSA, B Cepacia complex- vietnamiensis), moderate PO Bactrim DS PO BID, Levofloxacin 750mg daily x 14 days Recheck labs 2x today Continue ACT, No Call if symptoms worsen F/U in [place] next week with Dr. Kilgore Lung Function [...] RTC: [address] Kilgore at [place] with spirometry Jean Pierre Kilgore MD Written and verbal health teaching given to patient, patient verbalizes understanding and agrees with treatment plan. Electronically Signed: Dr Kilgore February 26, 2023 documented in this encounterSuburban Community Hospital [facility]03-20-2023 Miscellaneous Notes* Telephone Encounter - Daniel Goel - 02/17/2023 11:34 AM EDT Patient called office regarding a follow-up appointment with Dr. Kilgore. Message has been sent to the schedulers to reach out to the patient with Dr. Kilgore first availableappointment. documented in this encounterSuburban Community Hospital & [facility]02-13-2023 History of Present illness Narrative* She Pete, DO - 01/13/2023 11:44 AM EST CF Pre-Clinic Checklist PRE-TRANSPLANT Last CF clinic visit date: 12/04/[address] Kilgore Microbiology: MRSA B Cepacia complex (nova) Pseudomonas Mutations: [id number] & 1898+1G>Q Other medical complications: ---Advanced stage [...] need for 2022 SW Mental health screen: ANNUAL Labs Needed: will [...] - ?f/up with hepatology? documented in this encounterSuburban Community Hospital & [facility]02-03-2023 Miscellaneous Notes* Telephone Encounter - [employer] Spec - 01/03/2023 9:25 AM EST authorization forms faxed to you as requested to [phone] * Telephone Encounter - Madeleine Market Spec - 01/03/2023 8:11 AM EST Good morning, I received your message to call you regarding the authorizations for this patient. I have tried calling you a couple times, I understand you are with patients. Please call me back at [phone] at your convenience so I can answer any questions you may have. Thanks. * Telephone Encounter - Madeleine [employer] Spec - 12/30/2022 12:36 PM EST Patient's [employer] insurance requires a prior authorization for their [...] form. I can either e-mail to a [employer] e-mail address or send via fax. Once completed, simply return the signed form to Samra Lino at fax [phone] or via [facility] e-mail at [email or web address] . Thank you for your prompt attention to this matter. Samra HahnCritique^It Insurance Spec documented in this encounterSuburban Community Hospital & [facility]01-24-2023 Miscellaneous Notes* Telephone Encounter - Samra HahnCritique^It Insurance Spec - 12/24/2022 8:14 AM EST Good morning, I am looking for the status of the signed [facility] authorization form for patients copat extension for [...] in advance. * Telephone Encounter - Samra ThorntonTrackVia Insurance Spec - 11/26/2022 2:14 PM EST Looks like there is copat extension on the iv atbs vancomycin, meropenem, benadryl. We will need new signatures on authorization forms to request addtitional days of the iv medications. I will fax the forms to you at [phone]. Please sign all 3 forms and fax them back to me at [phone] so I can complete our authorization process. Thanks in advance * Telephone Encounter - Samra Edmonds Insurance Spec - 11/12/2022 1:04 PM EST emailed as requested * Telephone Encounter - Samra Edmonds Insurance Spec - 11/12/2022 9:56 AM EST Patient's [employer] insurance requires a prior authorization for their Vancomycin 750mg IV every 12 hours ,Meropenem 1.5gm IV every 8 hours ,Benadryl 50mg V42Hejbf I have completed the necessary prior authorization form , all that is required is review and signature by prescribing provider. Please advise which method will be the easiest / fastest way for the office to receive and process the prior authorization form. I can either e-mail to a [employer] e-mail address or send via fax. Once completed, simply return the signed form to Samra Lino at fax [phone] or via [facility] e-mail at . Thank you for your prompt attention to this matter. Samra Hahna Insurance Spec documented in this encounterSuburban Community Hospital & [facility]01-20-2023 Instructions* Patient Instructions* Stephie Ramirez APRN.ARIAS - 12/20/2022 1:31 PM EST Look into omnipod 5 and Tslim control IQ documented in this encounterSuburban Community Hospital & [facility]01-20-2023 History of Present illness Narrative* Stephie Ramirez APRN.ARIAS - 12/20/2022 12:43 PM EST Subjective Date [...] results in care everywhere, 01/2020: labs in [facility], 07/2020; Alkaline Phosphatase 725 (45-117), ALT 77 [...] related Diabetes Previous diabetes related labs from [facility] and [employer] [facility] reviewed prior to today's office visit. [...] high liver enzymes. self monitoring blood glucose data: see dexcom report. 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 dvfmepazkyg-yrbucjekvd-ieapmajnk (TRIKAFTA) 100-50-75 mg(d) /150 mg (n) tablet [...] about 30 total units a day Insulin Vaughn, Disposable, (BD ULTRA-FINE YARON PEN NEEDLE) 32 gauge x 5/32 5x/day glucagon (BAQSIMI) 3 mg/actuation nasal spray Use 1 Absaraka in the nose as needed. May repeat after 15 minutes using a new device if there is no response for severe low blood sugar event insulin glargine (BASAGLAR KWIKPEN U-100 INSULIN) 100 unit/mL (3 mL) Inject 8 units subcutaneously at bedtime Objective BP 142/80 Ht 157.5 cm (5' 2) Wt 40.6 kg (89 lb 6.4 oz) [...] - PEN NEEDLE, DIABETIC 32 GAUGE X 5/32 - BAQSIMI 3 MG/ACTUATION NASAL SPRAY - [...] changes. Stephie Ramirez APRN.ARIAS documented in this encounterSuburban Community Hospital & [facility]01-20-2023 History of Present illness Narrative* Stephie Ramirez APRN.ARIAS - 12/20/2022 12:35 PM EST Subjective Important [...] results in care everywhere, 01/2020: labs in [facility], 07/2020; Alkaline Phosphatase 725 (45-117), ALT 77 [...] related Diabetes Previous diabetes related labs from [facility] [facility] [employer] [facility] reviewed prior to today's office visit. Any changes made at our last diabetes management visit were abstracted accordingly (if applicable). Today's Office Visit: Note: last Follow up was 12/2021, reviewed importance of routine, generally every 3 month Follow ups self monitoring blood glucose data: see dexcom report. Dexcom: through [employer] [facility] Diet: Very high in carbs per [...] related to cystic fibrosis (HCC) Liver disease penitentiary (current) use of insulin (HCC) Transfusion history [...] tablet by mouth twice daily with meals. zeytrcyamaw-kfwiwaxvae-gtmvoqjte (TRIKAFTA) 100-50-75 mg(d) /150 mg (n) tablet [...] about 40 total units a day Insulin Vaughn, Disposable, (BD ULTRA-FINE YARON PEN NEEDLE) 32 gauge x 5/32 5x/day glucagon (GLUCAGON EMERGENCY KIT, HUMAN,) 1 mg injection use as directed if needed for SIGNIFICANT LOW BLOOD SUGAR EVENT CREON 36,000-114,000- 180,000 unit capsule Take 3 capsules by mouth. With every meal Objective There were no vitals taken for this visit. Physical Exam documented in this encounterSuburban Community Hospital & [facility]01-18-2023 Miscellaneous Notes* Telephone Encounter - Nell Lozano - 12/18/2022 10:06 AM EST Medication: Trikafta Date Submitted: December 13, 2022 Prescribing Provider: Tamara Method of Submission: covermymeds Outcome: Approved 12/13/2022-12/12/2023 Outcome Date: December 14, 2022 Nell Lozano documented in this encounterSuburban Community Hospital & [facility]01-06-2023 Miscellaneous Notes* Telephone Encounter - Corey Del Real - 12/06/2022 8:49 AM EST I called and spoke with Jay. The following appointment has been made for this patient: Date: 01/13/2023 Status: Scheduled Arrive By: 3:30 PM Time: 3:40 PM Length: 40 Visit Type: EST [facility] MED [[id number]] Copay: $0.00 Provider: Sanna Bowers APRN.CNP Department: [facility] Provider Title: Dept Ordering Physician: Department Address: [address] [facility] [address] Corey Del Real ----- Message from Karlene Ahuja DO sent at 12/04/2022 2:33 PM EST ----- Any ----- Message ----- From: Corey Del Real Sent: 12/04/2022 2:20 PM EST To: Karlene Ahuja DO With you or Sanna/Cindy? ----- Message ----- From: Karlene Ahuja DO Sent: 12/04/2022 2:08 PM EST To: [facility] Nurses Pool No otto on this Patient I had seen as a VV over 1 year ago had lab work with increased proteinuria Please call him to offer him a follow up with nephrology Sadiq Soler documented in this encounterSuburban Community Hospital & [facility]01-04-2023 Instructions* Patient Instructions* Jean Pierre Kilgore MD - 12/04/2022 5:09 PM EST Get labs tomorrow as ordered. Stop the IV fluids at night We'll get orders to [facility] to pull your PICC tomorrow Stop the minocycline Start the [place] once you receive it Let us know if you worsen Follow up with me in 3 weeks documented in this encounterSub[facility] History of Present illness Narrative* Jean [...] requiring IV abx after being seen in [place] 11/05/22 with CFPEx(MRSA and B Cepacia) and influenza A requiring tamiflu. Was discharged on 11/11/22 with IV Vanc andIV Meropenem. Had PICC line placement on 11/07/2022. He was seen in [place] 11/20, where labs were increased to 2xweek, [...] ---Referral to ENT for surgical eval. Appt [phone]. CYSTIC FIBROSIS RELATED DIABETES ---The standard medical therapy for CFRD is subcutaneous insulin (oral diabetic agents should not be used); ---Patient currently on insulin therapy. ---Self monitored blood glucose 3 times per day ---Most recent hgA1c noted. ---Following with Dr. 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 Burke France in 2020 for [...] of yet Prior exacerbation treatments per [facility] Procedures & IV/Oral Course: -12/15/95-12/23/95 Hospitalized [...] po X 2 weeks -11/13/2010 Hospital/surgery at [facility]: Splenorenal shunt --- -03/13/2011 Home treatment Bactrim [...] COVID-19 original vaccine, age 12+ yr, monovalent (panOpen-Emergent Views - PURPLE TOP) 12/24/2020 01/21/2021 12/05/2021 DTP [...] related to cystic fibrosis (HCC) [facility] disease [facility] (current) use of insulin (HCC) Transfusion history [...] tablet by mouth twice daily with meals. ywhlfjwrhdm-lafpnuxyon-jeqsjyisu (TRIKAFTA) 100-50-75 mg(d) /150 mg (n) tablet [...] about 40 total units a day Insulin Vaughn, Disposable, (BD ULTRA-FINE YARON PEN NEEDLE) 32 [...] recent imaging LAST LAB RESULTS: ---Reviewed in [facility] CBC with diff: WBC 10.30 12/03/2022 RBC 3.80 12/03/2022 Hemoglobin 11.9 12/03/2022 Hematocrit 34.0 12/03/2022 MCV 89.5 12/03/2022 MCH 31.3 12/03/2022 MCHC 35.0 12/03/2022 RDW-CV 13.9 12/03/2022 Platelet Count 214 12/03/2022 MPV 9.7 12/03/2022 Neut% 39.5 12/03/2022 Lymph% 35.0 12/03/2022 Thomas% 9.5 12/03/2022 Eosin% 16.6 11/26/2022 Baso% 0.7 12/03/2022 Abs Neut (Segs + Bands) 4.08 12/03/2022 Abs Thomas 0.98 12/03/2022 Abs Eosin 1.54 12/03/2022 Abs [...] 10.3 06/25/2016 7.0 SPIROMETRY: Reviewed in EPIC SPIROMETRY BASELINE ONLY ([id number]) - ordered on 12/04/22 ID: [id number] Name: JAY BARBER Race: White Ht: 62.01 in Wt: 89.51 lbs Age: 27 Gender: Male : 1995 Dx: Cystic fibrosis_ Smoking Hx: Non-smoker Doctor: SHE PETE Test Date: 12/04/2022 Site: [facility] Tech: Kaylen Daigle PRE-BRONCH POST-BRONCH Pre LLN Pred ULN %Pred Post %Pred %Chg SPIROMETRY FVC (L) 2.16 3.29 4.08 4.88 52 FEV1 (L) 0.75 2.75 3.44 4.11 21 FEV1/FVC 0.35 0.73 0.85 0.94 40 PEF L/s (L/sec) 3.59 6.73 8.55 10.37 41 FEF50 (L/sec) 0.24 2.03 4.16 6.28 5 FIF50 (L/sec) 2.45 FEF50/FIF50 0.10 90-100 FIVC (L) 2.04 DJK09-96 (L/sec) 0.20 2.34 3.75 5.49 5 Time (sec) 14.92 FET PEF (sec) 0.04 MACIEL (L) 0.02 Vol Extrap % (%) 1 Comments: ATS/ERS acceptability and repeatability standards for spirometry met. //KS SPIROMETRY BASELINE ONLY ([id number]) - ordered on 11/20/22 PRE-BRONCH POST-BRONCH Pred LLN ULN Actual %Pred Actual %Chng SPIROMETRY FVC (L) 4.08 3.29 4.88 2.34 57 FEV1 (L) 3.44 2.75 4.11 0.82 23 FEV1/FVC 0.85 0.73 0.94 0.35 41 FEF25 (L/sec) 0.54 FEF50 (L/sec) 4.16 2.03 6.28 0.27 6 FEF75 (L/sec) 1.51 0.80 2.67 0.10 6 CYG72-46 (L/sec) 3.75 2.34 5.50 0.22 5 PEF L/s (L/sec) 8.55 6.73 10.37 3.81 44 FIVC (L) 2.25 FIF50 (L/sec) 2.88 PIF (L/sec) 3.14 Time (sec) 14.45 MACIEL (L) 0.02 FET PEF (sec) 0.04 SPIROMETRY BASELINE ONLY ([id number]) - ordered on 11/05/22 PRE-BRONCH POST-BRONCH Pred LLN ULN Actual %Pred Actual %Chng SPIROMETRY FVC (L) 4.08 3.29 4.88 1.72 42 FEV1 (L) 3.44 2.75 4.11 0.62 17 FEV1/FVC 0.85 0.73 0.94 0.36 42 FEF25 (L/sec) 0.42 FEF50 (L/sec) 4.16 2.04 6.28 0.22 5 FEF75 (L/sec) 1.51 0.80 2.68 0.10 6 SWY79-04 (L/sec) 3.75 2.34 5.50 0.17 4 PEF [...] PICC Will need to send orders to [facility] F/U in [place] 12/[address] Kilgore Call if symptoms [...] weeks, December [address] Kilgore at [place] with spirometry Jean Pierre Kilgore MD documented in this encounterSub[facility]01-04-[facility]23 History of Present illness Narrative* Kaylen Solomon - 12/04/2022 3:33 PM EST PULM FUNCTION SMARTBLOCK: Provider: She Pete DO Spirometry: 1 documented in this encounterSuburban Community Hospital & [facility]12-30-2022 Miscellaneous Notes* Telephone Encounter - She Pete DO - 11/29/2022 10:44 AM EST Called and left voicemail for patient to get labs drawn again as the CMP did not get drawn. Placed new orders for standing labs as well to ensure that the lab can see them She Pete DO documented in this encounterSuburban Community Hospital & [facility]12-30-2022 Nurse Note* Fern Schilling Asst I - 11/29/2022 9:55 AM EST Per orders of Dr.Holman koroma copat stop date of 11/29. Patient's to maintain picc. Repeat labs today and then next week. Message sent to Pharmacy. Fern Mac Adm Asst I documented in this encounterSuburban Community Hospital & [facility]12-28-2022 Miscellaneous Notes* Telephone Encounter - Samra Edmonds Insurance Spec - 11/27/2022 9:46 AM EST faxed again 11/26/22 * Telephone Encounter - Samra Hahna Insurance Spec - 11/26/2022 1:05 PM EST Can I please get the status of the authorization form for patients IVF's that was faxed to your office 11/19/22, thanks. * Telephone Encounter - Samra Hahna Insurance Spec - 11/19/2022 1:33 PM EST Patients [employer] insurance requires a prior authorization for their 0.9% Sodium Chloride 1000 ml Infuse 1000 ml daily for 4 days. I have faxed the authorization form to [phone] as per Nell. I have completed the necessary prior authorization form , all that is required is review and signature by prescribing provider along with notes stating need for the IVF . Once completed, simply return the signed form to Samra Lino at fax [phone] or via [employer] e-mail at . documented in this encounterSuburban Community Hospital & [facility]12-27-2022 Miscellaneous Notes* Telephone Encounter - Nell Lozano - 11/26/2022 11:43 AM EST Images from the original note were not included. * Telephone Encounter - Nell Lozano - 11/26/2022 11:39 AM EST Images from the original note were not included. Outside labs have been uploaded through [employer]. There may be a delay before report appears in Epic. documented in this encounterSuburban Community Hospital & [facility]12-22-2022 Miscellaneous Notes* Telephone Encounter - Luiza Rodriges MD - 11/21/2022 1:06 PM EST CF team has already addressed this documented in this [facility]12[facility] Nurse Note* Fern Watts Adm Asst I - 11/20/2022 10:10 AM EST Per orders of extend copat until 11/29. Message sent to Pharmacy. Fern Watts Adm Asst I documented in this encounterSuburban Community Hospital & [facility]12-21-2022 History of Present illness Narrative* Kaylen Pilo Solomon - 11/20/2022 8:15 AM EST PULM FUNCTION SMARTBLOCK: Provider: Sally Schneider APRN.BUGGY LADLE TENDER Spirometry: 1 documented in this encounterSuburban Community Hospital & [facility]12-21-2022 History of Present illness Narrative* She [...] monitoring is being done and -------Labs in [facility] - from 11/18/2022 - slight rise in [...] ---Referral to ENT for surgical eval. Appt [phone]. CYSTIC FIBROSIS RELATED DIABETES ---The standard medical therapy for CFRD is subcutaneous insulin (oral diabetic agents should not be used); ---Patient currently on insulin therapy. ---Self monitored blood glucose 3 times per day ---Most recent hgA1c noted. ---Following with Dr. Francis Ramirez at [facility] Severe protein calorie malnutrition - continue ensures - has RD see on Friday when comes to 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 Burke France in 2020 for [...] related to cystic fibrosis (HCC) [facility] disease penitent[facility] (current) use of insulin (HCC) Transfusion history [...] tablet by mouth twice daily with meals. azdyrdzzawy-agrlnxkimf-zckmazkwu (TRIKAFTA) 100-50-75 mg(d) /150 mg (n) tablet [...] about 40 total units a day Insulin Vaughn, Disposable, (BD ULTRA-FINE YARON PEN NEEDLE) 32 [...] recent labs LAST LAB RESULTS: ---Reviewed in [facility] CBC with diff: WBC 8.4 08/06/2022 RBC 3.33 08/01/2022 Hemoglobin 11.5 08/06/2022 Hematocrit 34.3 08/06/2022 MCV 91.3 08/01/2022 MCH 31.2 08/01/2022 MCHC 34.2 08/01/2022 RDW-CV 13.2 08/01/2022 Platelet Count 422 08/06/2022 MPV 9.1 08/01/2022 Neut% 57.5 08/06/2022 Lymph% 9.8 07/29/2022 Thomas% 12.6 07/29/2022 Eosin% 7.9 08/06/2022 Baso% 0.4 07/29/2022 Abs Neut (Segs + Bands) 4.8 08/06/2022 Abs Thomas 1.28 07/29/2022 Abs Eosin 0.17 07/29/2022 Abs [...] 05/29/2018 10.3 06/25/2016 7.0 SPIROMETRY: Reviewed in Epic MICROBIOLOGY: Reviewed MICROBIOLOGY SNAPSHOT Written and verbal health teaching given to patient, patient verbalizes understanding and agrees with treatment plan. I spent a total of 50 minutes on the date of the service which included preparing to see the patient, byon-fa-dbbv patient care, completing clinical documentation, performing a medically appropriate examination, ordering medications, tests, or procedures, communicating with other HCPs (not separately reported), independently interpreting results (not separately reported), communicating results tothe patient/family/caregiver, and care coordination (not separately reported). Electronically Signed: She Pete DO November 20, 2022 documented in this encounterSuburban Community Hospital & [facility]12-19-2022 Miscellaneous Notes* Addendum Note - Miguelina [...] there. Dr. Pete notified. Miguelina Murray RN Composing Machine Operator CF and Bronchiectasis Programs A110 * Telephone Encounter - Nell Lozano - 11/18/2022 12:41 PM EST Images from the original note were not included. Outside labs have been uploaded through [employer]. There may be a delay before report appears in Epic. documented in this encounterSuburban Community Hospital & [facility]12-19-2022 History of Present illness Narrative* Miguelina Murray RN - 11/18/2022 9:12 AM ESTSummary: New patient referral Images from the original note were not included. 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, Trichosporonosis, Aspergillus Mutations: Delta [id number]+1G>A Other medical complications: ---Advanced stage lung disease [...] Done; 11/05/2022 RT ANNUAL VISIT Needed: Needs ANNUAL VISIT Needed: Needs Mental health screen: [...] has declined Tx workup at this time Zadby/Phone Messages since last visit: ---Home care ---Orders for lab work and PICC dressing to [facility] Other issues: None Plan for visit: ---CF swab ---Hospital admission/IV follow up ---Needs SW and RT Miguelina Murray RN Composing Machine Operator CF and Bronchiectasis Programs A110 documented in this encounterSuburban Community Hospital & [facility]12-06-2022 History of Present illness Narrative* Sally Schneider APRN.BUGGY LADLE TENDER - 11/05/2022 2:24 PM EST PULMONARY MEDICINE CYSTIC FIBROSIS PLAN OF CARE NOTE Please use the cystic fibrosis order set in [facility] to place the admission orders. The [...] 12 hours. Primary Pulmonary Service Staff Physician: Som Patient is being admitted to the Primary Pulmonary Service. Dr. Hale is the CF Consult Physician. P. [phone] Sally Schneider CNP CF STAFF TOXICOLOGIST. p. [phone] Reason for admission: CF Pulmonary Exacerbation Desired [...] safety labs twice a week (Mon and ) CBC/diff/ CMP/ Magnesium as long as stable. [...] not use subq heparin documented in this encounterSuburban Community Hospital & [facility]12-05-2022 Miscellaneous Notes* Telephone Encounter - Nell [...] He is okay with coming up to [facility] for a PFT and an appointment with Sally to discuss starting iv abx and the possible need to start the abx in house before being discharged home with ivs. Patient is scheduled to come to [facility] tomorrow. * Telephone Encounter - PRABHA Pitt - 11/04/2022 2:22 PM EST Patient called requesting appointment with CF doctor. documented in this encounterSuburban Community Hospital & [facility]10-26-2022 Miscellaneous Notes* Telephone Encounter - Daniel Yu RN - 09/25/2022 1:42 PM EDT Pharmacy called requesting the following refill. Requested Prescriptions Pending Prescriptions Disp Refills txovlzydsqe-xfpzetjwrk-tygjahcdl (TRIKAFTA) 100-50-75 mg(d) /150 mg (n) tablet 84 Each 1 Sig: Take 2 tablets by mouth every 48 hours. Take 2 orange tablets on even number days. Then take 1tablet on Odd number days. Discard blue tablets. DO NOT crush, chew, or open. Patient Phone numbers: [phone] (home) Request is for script(s) to be escript to pharmacy. Daniel Yu RN documented in this encounterSuburban Community Hospital & [facility]10-12-2022 History of Present illness Narrative* She Tamara, DO - 09/11/2022 9:48 AM EDT Images [...] issues with possible mood changes - complete [facility] paperwork - asked about transplant today - remains not interested at this time RTC: 01/22/2023 at [place] with spirometry and then in the summer at [facility] for entire team She Pete, DO 09/11/2022 [...] antibiotic: previously used cayston montly alternating with UMKESH podhaler - not currently doing. Does have [...] ---Referral to ENT for surgical eval. Appt [phone]. CYSTIC FIBROSIS RELATED DIABETES ---The standard medical therapy for CFRD is subcutaneous insulin (oral diabetic agents should not be used); ---Patient currently on insulin therapy. ---Self monitored blood glucose 3 times per day ---Most recent hgA1c noted. ---Following with Dr. 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 Burke France in 2020 for [...] or hypoglycemic symptoms Prior exacerbation treatments per [facility] Procedures & IV/Oral Course: -12/15/95-12/23/95 Hospitalized [...] po X 2 weeks -11/13/2010 Hospital/surgery at [place]: Splenorenal shunt --- -03/13/2011 Home treatment Bactrim [...] related to cystic fibrosis (HCC) Liver disease penitentiary (current) use of insulin (HCC) Transfusion history [...] Each three times daily.^Disp: 1 Each^Rfl: 0 gyuhvlvyrcm-tztmcmvmcx-pneenyolq (TRIKAFTA) 100-50-75 mg(d) /150 mg (n) tablet^Take [...] units a day^Disp: 15 mL^Rfl: 6 Insulin Vaughn, Disposable, (BD ULTRA-FINE YARON PEN NEEDLE) 32 gauge x 5/32^5x/day^Disp: 150 Each^Rfl: 11 glucagon (GLUCAGON EMERGENCY KIT, [...] C (98.8 F) Ht 157.5 cm (5' 2.01) Wt 41.6 kg (91 lb 11.2 oz) [...] is abnormal). LAST LAB RESULTS: ---Reviewed in [facility] Glucose (mg/dL) Date Value 08/09/2022 201 [...] 05/29/2018 10.3 06/25/2016 7.0 SPIROMETRY: Reviewed in [facility] [address], [place], [place] [address] Test Date: 2022-09-11 Pat Name: JAY BARBER Department: Room: Gender: Male Field Cane Scaler: : 1995 Requested By: Order Number: [id number] Reading MD: Interpretive Statements The exhaled (FVC) spirometry maneuver meets ATS/ERS acceptability and repeatability standards. The inspired (FIVC) spirometry maneuver is less than the FVC maneuver. //KM IMPRESSION: Site: [facility] ID: [id number] Name: JAY BARBER Visit Date: 09/11/2022 Doctor: Field Cane Scaler: Padma Campbell Age: 27 Date of : 1995 Gender: [...] FEF75 (L/sec) 1.51 0.80 2.68 0.14 9 FOA21-28 (L/sec) 3.76 2.35 5.50 0.29 7 PEF L/s (L/sec) 8.55 6.73 10.37 4.65 54 FIVC (L) 2.67 FIF50 (L/sec) 3.68 PIF (L/sec) 4.20 Time (sec) 15.39 MACIEL (L) 0.03 FET PEF (sec) 0.04 [facility] [address], [place], [place] [address] Test Date: 2022 Pat Name: JAY BARBER Department: Room: Gender: Male Field Cane Scaler: : 1995 Requested By: Order Number: [id number] Reading MD: Interpretive Statements The exhaled (FVC) spirometry maneuver meets ATS/ERS acceptability and repeatability standards. The inspired (FIVC) spirometry maneuver is [less than] the FVC maneuver. //KS IMPRESSION: Site: [facility] ID: [id number] Name: JAY BARBER Visit Date: 2022 Doctor: Field Cane Scaler: Kaylen Daigle Age: 27 Date of : [...] FEF75 (L/sec) 1.52 0.80 2.69 0.14 9 HWI52-74 (L/sec) 3.77 2.35 5.51 0.27 7 PEF [...] agrees with treatment plan. documented in this encounterSuburban Community Hospital & [facility]10-12-2022 History of Present illness Narrative* Padma Campbell, I O PSYCHOLOGIST - 09/11/2022 8:46 AM EDT PULM FUNCTION SMARTBLOCK: Provider: She Pete DO Spirometry: 1 documented in this encounterSuburban Community Hospital & [facility]09-28-2022 Miscellaneous Notes* Telephone Encounter - Nell [...] paxlovid vs trikafta. Call pharmacist directly at [phone] documented in this encounterSuburban Community Hospital & [facility]09-26-2022 Miscellaneous Notes* Telephone Encounter - Sally Schneider APRN.[facility] - 08/26/2022 10:09 AM EDT FACT SHEET FOR PATIENTS, PARENTS, AND CAREGIVERS EMERGENCY USE AUTHORIZATION (EUA) OF PAXLOVID FOR CORONAVIRUS DISEASE 2019 (COVID-19) You are being given this Fact Sheet because your healthcare provider believes it is necessary to provide you with PAXLOVID for the treatment of phwt-tl-imqpoyzs coronavirus disease (COVID-19) caused by the SARS-CoV-2 [...] virus. COVID-19 illnesses have ranged from very mlle-lv-hskkjs, including illness resulting in . While information [...] is an investigational medicine used to treat vhbs-hv-wxtsfvzk COVID-19 in adults and children [12 years [...] of using PAXLOVID to treat people with xkvj-fw-tnuernpz COVID-19. The FDA has authorized the emergency use of PAXLOVID for the treatment of idmz-kl-vveetkci COVID-19in adults and children [12 years of [...] the medicines you take, including prescription and stiv-tho-mydclrp medicines, vitamins, and herbal supplements. Some medicines [...] (remdesivir) is FDA-approved for the treatment of rlcy-al-buwmrwrv COVID-19 in certain adults and children. Talk with your doctor to see if Veklury is appropriate for you. Like PAXLOVID, FDA may also allow for the emergency use of other medicines to treat people with COVID-19. Go to https://www.fda.gov/cpmlefnyo-hmzrcxzccswi-xlwovxjieth/fpe-rfwvi-enbsgacdcq-and- policy-framework/rbyalnfkk-gos-mazoaehksucop for information on the emergency use of [...] if I am or ? There is mineral economist treating women or mothers with PAXLOVID. For [...] to FDA MedWatch at www.fda.gov/medwatch or call 0-235-IIA1924 or you can reportside effects to [employer]. at the contact information provided below. Website Fax number Telephone number [employer] How should I store PAXLOVID? Store PAXLOVID [...] (EUA). The EUA is supported by a Therapy Administrative Assistant of Health and Human Service (HHS) declaration that circumstances exist to justify the emergency use of drugs and biological productsduring the COVID-19 pandemic. PAXLOVID for the treatment of hbdf-lc-wghybomz COVID-19 in adults and children [12 years [...] telephone number provided below. Website Telephone number www.OIDWK00iwujXg.com (9-286-I91-DMDH) You can also go to www.pbsi.[employer] or call for more information. Pfizer Distributed by [employer] [place] [address] LAB-1494-2.1 Revised: 15 February 2022 documented in this encounterRodney Ville [address]-26-2022 History of Present illness Narrative* Sally Schneider APRN.CNP - 08/26/2022 10:08 AM EDT Nirmatrelvir/Ritonavir (Paxlovid) Eligibility and Patient Discussion [facility] Formulary Restriction Criteria: Adult outpatients 18 [...] Criteria above are met: documented in this encounterSuburban Community Hospital & [facility]09-26-2022 Instructions* Patient Instructions* Sally Schneider APRN.CNP - 08/26/2022 10:08 AM EDT FACT SHEET FOR PATIENTS, PARENTS, AND CAREGIVERS EMERGENCY USE AUTHORIZATION (EUA) OF PAXLOVID FOR CORONAVIRUS DISEASE 2019 (COVID-19) You are being given this Fact Sheet because your healthcare provider believes it is necessary to provide you with PAXLOVID for the treatment of utlb-qh-sakixiie coronavirus disease (COVID-19) caused by the SARS-CoV-2 [...] virus. COVID-19 illnesses have ranged from very pzbw-bm-neclro, including illness resulting in . While information [...] is an investigational medicine used to treat ecvd-ln-isqaatga COVID-19 in adults and children [12 years [...] of using PAXLOVID to treat people with pjld-ai-wnulfubs COVID-19. The FDA has authorized the emergency use of PAXLOVID for the treatment of scoe-ll-ggwvofik COVID-19in adults and children [12 years of [...] the medicines you take, including prescription and ksmd-mxb-etwgyqc medicines, vitamins, and herbal supplements. Some medicines [...] (remdesivir) is FDA-approved for the treatment of spls-kw-gquwtkop COVID-19 in certain adults and children. Talk with your doctor to see if Veklury is appropriate for you. Like PAXLOVID, FDA may also allow for the emergency use of other medicines to treat people with COVID-19. Go to https://www.fda.gov/gplffxeys-qxistpmiityn-jtmgmbqbhqe/vcv-mbeod-tnrmcvgvru-and- policy-framework/byzuesdyg-poj-qjlofmoudydqe for information on the emergency use of [...] if I am or ? There is mineral economist treating women or mothers with PAXLOVID. For [...] Report side effects to FDA MedWatch at www.fda.gov/QBE or call 7-666-HZA0051 or you can reportside effects to [employer]. at the contact information provided below. Website Fax number Telephone number www.[employer] How should I store PAXLOVID? Store PAXLOVID [...] (EUA). The EUA is supported by a Therapy Administrative Assistant of Health and Human Service (HHS) declaration that circumstances exist to justify the emergency use of drugs and biological productsduring the COVID-19 pandemic. PAXLOVID for the treatment of uqpa-nd-hanmrjnh COVID-19 in adults and children [12 years [...] telephone number provided below. Website Telephone number [employer] (3-683-T49-FQZR) You can also go to www.[employer] or call for more information. Pfizer Distributed by [employer] [place] [address] LAB-1494-2.1 Revised: 15 February 2022 documented in this [facility] Nurse Note* Fern Watts Adm Asst I - 08/09/2022 12:[address]Miranda misty mora. Picc line pulled in pulmonary clinic today. Message sent to Pharmacy. Fern Watts Adm Asst I documented in this [facility]09[facility] Instructions* Patient Instructions* Sally Schneider APRN.CNP - 08/09/2022 10:47 AM EDT STop IV abx today CMP drawn today will follow up results I will check on the inhaled cayston today Follow up with Dr Pete 09/11/22 at 9 am PFT 8:[facility] am [facility] documented in this [facility]09-09-2022 History of Present illness Narrative* Nitin Oden RRT - 08/09/2022 10:17 AM EDT PEDS PULM: Provider: Sally Schneider APRN.CNP Spirometry: 1 System: [id number] documented in this encounterSuburban Community Hospital & [facility]09-09-2022 History of Present illness Narrative* Sally Schneider, ADALI.BUGGY LADLE TENDER - 08/09/2022 9:44 AM EDT Images from [...] monitoring is being done and -------Labs in [facility] ---No significant changes in creatinine, LFTs, [...] Dr Pete on FriSeptember 11 9:00 am [place] with [place] baseline 1. 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 Appt [phone]. CYSTIC FIBROSIS RELATED DIABETES ---The standard medical therapy for CFRD is subcutaneous insulin (oral diabetic agents should not be used); ---Patient currently on insulin therapy. ---Self monitored blood glucose 3 times per day ---Most recent hgA1c noted. ---Following with Dr. 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 Burke France in 2019 for 1 year Depression/Anxiety ---continues on celexa 20 mg PO daily ---will have him see SW with next visit HTN ---Coreg 6.25 mg (had hyperkalemia with SEVERINO-I) Proteinuria --- previously seen by Dr. Ahuja in nephrology Return to clinic in 5 weeks with spirometry baseline. 09/11/22 at 9 am Sally Schneider [facility] Pediatric [place] CHIEF COMPLAINT: Cystic Fibrosis HISTORY OF PRESENT [...] related to cystic fibrosis (HCC) Liver disease keno terminal operator (current) use of insulin (HCC) Transfusion history [...] Each three times daily.^Disp: 1 Each^Rfl: 0 hpyungelofx-ebkdlvjqxi-sfchmvgms (TRIKAFTA) 100-50-75 mg(d) /150 mg (n) tablet^Take [...] units a day^Disp: 15 mL^Rfl: 6 Insulin Vaughn, Disposable, (BD ULTRA-FINE YARON PEN NEEDLE) 32 gauge x 5/32^5x/day^Disp: 150 Each^Rfl: 11 insulin glargine (BASAGLAR KWIKPEN [...] recent labs LAST LAB RESULTS: ---Reviewed in [facility] Glucose (mg/dL) Date Value 08/01/2022 281 [...] 08/01/2022 Neut% 57.5 08/06/2022 Lymph% 9.8 07/29/2022 Thomas% 12.6 07/29/2022 Eosin% 7.9 08/06/2022 Baso% 0.4 07/29/2022 Abs Neut (Segs + Bands) 4.8 08/06/2022 Abs Thomas 1.28 07/29/2022 Abs Eosin 0.17 07/29/2022 Abs Baso 0.04 07/29/2022 SPIROMETRY: Reviewed in [facility] SPIROMETRY BASELINE ONLY ([id number]) - ordered on 07/17/22 No textual results for order. MICROBIOLOGY: Reviewed MICROBIOLOGY SNAPSHOT Written and verbal health teaching given to patient, patient verbalizes understanding and agrees with treatment plan. Electronically Signed: Sally Schneider CNP August 09, 2022 documented in this encounterSub[facility] Miscellaneous Notes* Telephone Encounter - Forrest [...] IMPRESSION: Findings in keeping with cystic fibrosis. Environmental Technology Professor: KATHIE Transcribe Date/Time: Jul 25 2022 10:42A [...] and soft tissues: Unremarkable. documented in this encounterSub[facility] History of Present illness Narrative* RT Kushal(R) - 07/25/2022 10:20 AM EDT Radiology Service [...] 25, 2022 10:28 AM documented in this encounterSuburban [facility] Instructions* Patient Instructions* She Pete DO [...] your usual activities immediately. documented in this encounterSub[facility] History of Present illness Narrative* She Pete DO - 2022 5:57 PM EDT Jay Barber is here for IRB # [id number] Cystic Fibrosis Patient Registry IRB# [id number] Mat Repairer: Forrest Hale MD 1. Mat Repairer and/or Research Nurse explained the protocol to [...] the subject during their clinic visit today. Jayshereen Long participated in the CF registry previously at other CF centers. Jay is aware that no furtherstudy visits are required and that data for this registry will be obtained from visits with their health care team here [facility]. There is no compensation for participating in this study. Zoie Barber verbalized understanding and had no further questions prior to signing the consent. Nostudy procedures occurred prior to signing consent. She Pete DO documented in this encounterSuburban [facility]08-17-[facility]22 History of Present illness Narrative* She [...] him see hepatology when he comes to [facility] as well - CF sputum culture today - refilled medications - modified dosing of Trikafta due to liver disease - discussed about lung transplant as possible liver transplant - we discussed referral to [facility] due to continued growth of Burkholderia, he is not interested in transplant at this time RTC: at [facility] for annual visit with hepatology She Pete DO 1. 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 Appt [phone]. CYSTIC FIBROSIS RELATED DIABETES ---The standard medical therapy for CFRD is subcutaneous insulin (oral diabetic agents should not be used); ---Patient currently on insulin therapy. ---Self monitored blood glucose 3 times per day ---Most recent hgA1c noted. ---Following with Dr. 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 Burke France in 2019 for [...] or hypoglycemic symptoms Prior exacerbation treatments per [facility] Procedures & IV/Oral Course: -12/15/95-12/23/95 Hospitalized [...] po X 2 weeks -11/13/2010 Hospital/surgery at [place]: Splenorenal shunt --- -03/13/2011 Home treatment Bactrim [...] related to cystic fibrosis (HCC) Liver disease penitentiary (current) use of insulin (HCC) Transfusion history [...] about 40 total units a day Insulin Vaughn, Disposable, (BD ULTRA-FINE YARON PEN NEEDLE) 32 [...] (99.5 F) (Tympanic) Ht 157.5 cm (5' 2.01) Wt 38.4 kg (84 lb 11.2 oz) [...] recent EKG CXR and KUB 05/12/2022 - [facility] IMPRESSION: There are chronic cystic fibrosis changes [...] is abnormal). LAST LAB RESULTS: ---Reviewed in [facility] CBC with diff: WBC 6.58 12/05/2015 RBC 5.39 12/05/2015 Hemoglobin 16.2 12/05/2015 Hematocrit 48.4 12/05/2015 MCV 89.8 12/05/2015 MCH 30.1 12/05/2015 MCHC 33.5 12/05/2015 RDW-CV 12.9 12/05/2015 Platelet Count 157 12/05/2015 MPV 11.0 12/05/2015 Neut% 62.5 12/05/2015 Lymph% 24.9 12/05/2015 Thomas% 9.1 12/05/2015 Eosin% 3.0 12/05/2015 Baso% 0.5 12/05/2015 Abs Neut (ANC) 4.11 12/05/2015 Abs Thomas 0.60 12/05/2015 Abs Eosin 0.20 12/05/2015 Abs [...] 05/29/2018 10.3 06/25/2016 7.0 SPIROMETRY: Reviewed in [address] [address] Test Date: 2022 Pat Name: JAY BARBER Department: Room: Gender: Male Field Cane Scaler: : 1995 Requested By: Order Number: [id number] Reading MD: Interpretive Statements The exhaled (FVC) spirometry maneuver meets ATS/ERS acceptability and repeatability standards. The inspired (FIVC) spirometry maneuver is [less than] the FVC maneuver. //KS IMPRESSION: Site: [facility] ID: [id number] Name: ELISABETH JAY Visit Date: 2022 Doctor: Field Cane Scaler: Kaylen Daigle Age: 27 Date of : [...] FEF75 (L/sec) 1.52 0.80 2.69 0.14 9 VQS24-27 (L/sec) 3.77 2.35 5.51 0.27 7 PEF [...] Burkholderia cepacia complex *Colt cepacia complex:ssp B nova- [facility] -- 11/05/18- MRSA 09/14/18- MRSA, [...] She Pete DO 2022 documented in this encounterSuburban [facility]06-14-[facility] Hospital course Narrative * Lilliana Harvey APRN-[facility] - 05/14/2022 1:29 PM EDT Discharge/Transfer Summary Name: Jay Barber MR#: [id number] : 1995 Room #: AUF1445/01 Age/Sex: 26 y.o. male Admit Date: 05/12/2022 Admitting: Curtis Arguelles MD Discharge Date: 05/14/2022 Discharged from: [facility] Attending: Curtis Cisneros MD Final Diagnosis: RITA [...] [ ] [ ] [ ] CREON [id number] units capsule Take 3 Capsules (108,000 Units) by mouth Before Meals and 2 Snacks Generic drug: pancrelipase [ ] [ ] [ ] [ ] [ ] fluticasone 220 MCG/ACT 220 mcg inhaler Inhale 1 Puff into the lungs 2 times daily Commonly known as: FLOVENT HFA [ ] [ ] [ ] [ ] [ ] fluticasone 50 MCG/ACT nasal spray 1 Absaraka by Each Nare route 2 times daily [...] ] [ ] [ ] [ ] OPTICKosmixBER DINO Jean-Paul DEVICE by Other route Use as directed with metered-dose inhaler. [ ] [ ] [ ] [ ] [ ] BOB ALTERA NEBULIZER HANDSET Misc 1 Each by Does not apply route 3 times daily To be used to nebulize cayston [ ] [ ] [ ] [ [...] therapy pack Am dose only Generic drug: Vdczuirc-Fwnxrwk-Nimanv&Ivacaf [ ] [ ] [ ] [ ] [ ] vitamin D 1.25 MG (17570 UT) capsule Take 1 Capsule (50,000 Units) by mouth every 7 days Indications: Osteoporosis Commonly known as: ERGOCALCIFEROL [ ] [ ] [ ] [ ] [ ] Discharge Instructions: Resume normal activity, diet, and medications. Add Miralax 17g PO q day as needed. Signed: Siria Odonnell was present and examined patient for discharge. documented in this encounterWhite Hospital06-14-2022 Progress note* Ancillary Progress Note - Orquidea Hardy CCLS [...] at bedside. Patient is being seen at [facility] pediatric unit. No specific needs were expressed at this time. Will continue to follow up throughoutadmissions. Patient expected to be discharged. TANA Friend [facility] Miscellaneous Notes* Ancillary Progress Note - [...] at bedside. Patient is being seen at [facility] [place] pediatric unit. 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 Jay was admitted for poor intake [...] 13, 2022 * Ancillary Consult - Joana Castro, PT - 05/13/2022 9:14 AM EDT Physical Therapy General Evaluation Patient's Name: Jay Barber MR #: [id number] Patient's : 1995 Patient's age: 26 y.o. Location: [place] Evaluation date: 05/13/2022 Start Time: 15:45 Stop [...] 26 y.o. 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 Home design includes: bedroom is on the 1st floor and bathroom is on the 1st floor. Jay was last admitted to [facility] from 06/15/19 to 06/28/19 due to [...] the referral. 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 Jay was admitted for poor intake [...] minute(s) Bert Briones RD/GERRY May 13, 2022 [facility] History of Present illness Narrative* Curtis [...] 3 Taking vitamin D (ERGOCALCIFEROL) 1.25 MG (33224 UT) capsule Take 1 Capsule (50,000 Units) [...] each use. 1 Each 11 Taking CREON [id number] units capsule Take 3 Capsules (108,000 Units) by mouth Before Meals and 2 [id number] Capsule 11 Taking fluticasone (FLONASE) 50 MCG/ACT nasal spray 1 Absaraka by Each Nare route 2 times daily 1 g 0 Taking Dkjmmcjv-Rkfsxtm-Drtcnb&Ivacaf (TRIKAFTA) 100-50-75 & 150 MG oral tablet [...] nebulize cayston 1 Each 5 Spacer/Aero-Holding Chambers ([facility] H[facility]PITAL[facility] IDNO) JEAN-PAUL DEVICE by Other route Use as [...] patient was 30 minutes. documented in this encounterWhite Hospital06-13-2022 Consult note* Ancillary Consult - Joana Castro PT - 05/13/2022 9:14 AM EDT Physical Therapy General Evaluation Patient's Name: Jay Barber MR #: [id number] Patient's : 1995 Patient's age: 26 y.o. Location: [place] Evaluation date: 05/13/2022 Start Time: 15:45 Stop [...] 26 y.o. 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 Home design includes: bedroom is on the 1st floor and bathroom is on the 1st floor. Jay was last admitted to [facility] from 06/15/19 to 06/28/19 due to [...] the referral. Joana Castro, PT 9:14 AM [facility] Plan of care note* Plan of [...] Goal: Balanced intake and output Outcome: Ongoing [facility] History and physical note* Curtis Cisneros [...] 3 Taking vitamin D (ERGOCALCIFEROL) 1.25 MG (38973 UT) capsule Take 1 Capsule (50,000 Units) [...] each use. 1 Each 11 Taking CREON [id number] units capsule Take 3 Capsules (108,000 Units) by mouth Before Meals and 2 [id number] Capsule 11 Taking fluticasone (FLONASE) 50 MCG/ACT nasal spray 1 Absaraka by Each Nare route 2 times daily 1 g 0 Taking Fcxeykrp-Clnxcby-Inbadz&Ivacaf (TRIKAFTA) 100-50-75 & 150 MG oral tablet [...] 225 mL 3 Unknown Respiratory Therapy Supplies (Fifty100A NEBULIZER HANDSET) MISC 1 Each by Does not apply route 3 times daily To be used to nebulize cayston 1 Each 5 Spacer/Aero-Holding Chambers (Eat LatinBER DINO) JEAN-PAUL DEVICE by Other route Use [...] care for this patient was 50 minutes. [facility] History and physical note* Curtis Cisneros [...] 3 Taking vitamin D (ERGOCALCIFEROL) 1.25 MG (13196 UT) capsule Take 1 Capsule (50,000 Units) [...] each use. 1 Each 11 Taking CREON [id number] units capsule Take 3 Capsules (108,000 Units) by mouth Before Meals and 2 [id number] Capsule 11 Taking fluticasone (FLONASE) 50 MCG/ACT nasal spray 1 Absaraka by Each Nare route 2 times daily 1 g 0 Taking Tnlawoop-Fgwkyqc-Tpodan&Ivacaf (TRIKAFTA) 100-50-75 & 150 MG oral tablet [...] mL 3 Unknown Respiratory Therapy Supplies (BOB TigermedA NEBULIZER HANDSET) MISC 1 Each by Does not apply route 3 times daily To be used to nebulize cayston 1 Each 5 Spacer/Aero-Holding Chambers (Xand DINO) JEAN-PAUL DEVICE by Other route Use [...] patient was 50 minutes. documented in this encounterWhite Hospital06-12-2022 Emergency department Note* Magalie Kuhn RN - 05/12/2022 3:36 PM EDT Pritesh notified of pt's departure. [facility] Emergency [facility] Note* Magalie Kuhn RN - 05/12/2022 3:36 PM EDT Pritesh notified of pt's departure. * Magalie Kuhn RN - 05/12/2022 3:25 PM EDT Pt resting comfortably, updated on plan of care. Pt states he is feeling better at this time. * Magalie Kuhn RN - 05/12/2022 2:37 PM EDT Jay Barber [id number] Point of Care testing Glucometer: Venous blood [...] the original note were not included. Jay Barber : 1995 Chief Complaint Patient presents [...] Age: approx 27 months Referred From:transferred from [facility] Cystic fibrosis exacerbation 04/11/2014 multiple Diabetes mellitus [...] patient's case with Dr. Curtis Cisneros at [facility]. Patient was transferred to [facility] for admission and further management. ED Course: Diagnosis' considered: viral gastro vs JOSE vs pancreatitis vs acute appy Labs/Radiology: CBC, CMP, Lipase, KUB, RFA Consults: No orders of the defined types were placed in this encounter. Medical Record/Transferring Institution Record: Treatment/Reassessment: Encounter Documentation/Handoff: Medical Decision Making as of 05/13/22 0853 [place] May 12, 2022 0911 26 yom, history [...] 6.0(!!) [DV] [address] Cisneros, [facility], who accepted patient for admission for IVF, tachycardia, emesis. Dr. Cisneros will call back as he needs to discuss with team regarding transfer/admission. Patient updated and aware of plan. [ES] 1316 keenan Meyer for transfer to [place]. Called [facility] and working on obtaining ALS at this time. [ES] 1324 RFA neg [ES] 1345 Pt with ongoing emesis, Reglan ordered. [ES] 1504 Home insulin ordered for BGT of 427. [ES] 1535 VSS. Patient transferred to [place] via [facility]. [DV] Medical [...] clear and resp easy. documented in this encounterWhite Hospital06-12-2022 Emergency department Note* Magalie Kuhn RN - 05/12/2022 3:25 PM EDT Pt resting comfortably, updated on plan of care. Pt states he is feeling better at this time. [facility] Emergency [facility] Note* Magalie Kuhn RN - 05/12/2022 2:37 PM EDT Jay Barber [id number] Point of Care testing Glucometer: Venous blood drawn 427 mg/dl Results of < 45 or > 450 mg/dl need to be confirmed by the laboratory REFERENCE RANGE: 60-110 mg/dl. Two identifiers from patient verified. Test performed at bedside. Specimen labelled in the presenceof the patient. [facility] Emergency department Note* Magalie Kuhn RN - 05/12/2022 2:20 PM EDT Nursing report given to receiving nurse. This nurse to call when patient leaves. [facility] Emergency [facility] Note* Magalie Kuhn RN - 05/12/2022 2:01 PM EDT Pt up to restroom unassisted. [facility] Emergency [facility] Note* Magalie Kuhn RN - 05/12/2022 1:35 PM EDT Pt vomiting, fellow aware. [facility]-2022 NoteIs this a pre-procedure screening test?->No Release to patient->[facility] [id number] Emergency department Note* Magalie Kuhn RN - 05/12/2022 11:42 AM EDT Pt up to restroom, unassisted. Pt tolerated well. Pt reports PO of 240cc gatorade and feels well. [facility] Emergency [facility] Note* Magalie Kuhn RN - 05/12/2022 10:42 AM EDT Critical lab value K of 8.3 (hemolyzed) verbally received from laboratory staff. Dr. Ryan (current provider) was notified at this time. Immediate interventions identified in reponse: redraw K. [facility] Emergency department Note* Magalie Kuhn RN - 05/12/2022 10:04 AM EDT IV attempted x2 in R forearm unsuccessfully, pt tolerated well. EKG done and given to provider. [facility] Emergency [facility] Note* Lolis James RN - 05/12/2022 10:00 AM EDT This RN to bedside to insert IV via ultrasound guidance. Pt awake, alert. NAD. Resps easy. Pt asking for gatorade after IV placed and fluids started. phil Mejias RN notified. [facility] Physician Emergency department Note* Sabina Larios MD - 05/12/2022 8:52 AM EDT Images from the original note were not included. Jay Barber : 1995 Chief Complaint Patient presents [...] patient's case with Dr. Curtis Cisneros at [facility]. Patient was transferred to [facility] for admission and further management. ED Course: Diagnosis' considered: viral gastro vs JOSE vs pancreatitis vs acute appy Labs/Radiology: CBC, CMP, Lipase, KUB, RFA Consults: No orders of the defined types were placed in this encounter. Medical Record/Transferring Institution Record: Treatment/Reassessment: Encounter Documentation/Handoff: Medical Decision Making as of 05/13/22 0853 [place] May 12, 2022 0911 26 yom, history [...] 6.0(!!) [DV] [address] Cisneros, [facility], who accepted patient for admission for IVF, tachycardia, emesis. Dr. Cisneros will call back as he needs to discuss with team regarding transfer/admission. Patient updated and aware of plan. [ES] 1316 keenan Meyer for transfer to [place]. Called [facility] and working on obtaining ALS at this time. [ES] 1324 RFA neg [ES] 1345 Pt with ongoing emesis, Reglan ordered. [ES] 1504 Home insulin ordered for BGT of 427. [ES] 1535 VSS. Patient transferred to [place] via [facility]. [DV] Medical [...] Sabina Larios MD Pediatric Emergency Medicine, PGY4 [facility] Emergency department Triage note* Be Zaidi RN - 05/12/2022 8:44 AM EDT Patient came to the ED for vomiting since Friday night and elevated HR since last night. Patient c/o worsening abdomen pain. Patient voided 1 time today. Patient took 2 CoVid tests, negative. Pt alert and ambulatory, skin pink warm and dry, lungs clear and resp easy. [facility]04[facility]20[facility] History of Present illness Narrative* Miguelina Murray RN - 03/20/2022 11:01 AM EDTSummary: New CF patient referral Images from the original note were not included. Referral from: [facility] Dr. Jean Pierre Kilgore Patient from: [place], [place] Reason for consult: Cystic Fibrosis Transition of Care Genotype: Delta [id number]>A Complications of CF: ---ADVANCED stage lung disease; [...] home. Supplemental oxygen use: NO CURRENT MEDICATIONS: Nlzpumid-Epllldr-Uxuijq&Ivacaf (TRIKAFTA) 100-50-75 & 150 MG oral tablet [...] Capsule 3 vitamin D (ERGOCALCIFEROL) 1.25 MG (24097 UT) capsule Take 1 Capsule (50,000 Units) [...] for Allergies 30 Tab 11 Spacer/Aero-Holding Chambers (Eat LatinBER DINO) JEAN-PAUL DEVICE by Other route Use [...] into the muscle Use as instructed. CREON 60657 units capsule Take 3 Caps (108,000 Units) [...] 158.0 2.87 1.34 47 68.9 37.4 Best 2017 09/17/2017 157.0 3.13 1.37 44 76.1 38.9 Best 2018 03/18/2018 157.0 2.55 1.08 42 62.1 30.7 2019 [...] scan ---Follow up/discuss Transplant Miguelina Murray RN Composing Machine Operator CF and Bronchiectasis Programs A110 documented in this encounterSuburban [facility]04[facility] Miscellaneous Notes* Telephone Encounter - Nell Lozano - 03/05/2022 1:09 PM EDT I have called patient and he did not answer. I left a voicemail requesting that he give me a call back at his earliest convenience. * Telephone Encounter - Nell Lozano - 03/05/2022 7:54 AM EDT Referring physician: Dr. Jean Pierre Kilgore Address: [facility] Phone: Fax: Diagnosis: Cystic Fibrosis Are there the medical center records: Yes Are there care everywhere records: Yes Has a referral form been faxed: No Has patient been added to spreadsheet: Yes documented in this encounterL[facility] + Plan note No data available for this section [facility] Evaluation note* Diagnosis Cystic fibrosis with pulmonary manifestations (HCC)- Primary Cystic fibrosis with pulmonary manifestations documented in this encounter [facility] note* Diagnosis Intractable nausea and [...] to cystic fibrosis [facility]* Diagnosis 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)- Primary Vitamin D deficiency Unspecified vitamin D deficiency documented in this encounter [facility]* Diagnosis Cystic fibrosis with pulmonary manifestations [...] screening for osteoporosis documented [facility] this [facility]* Diagnosis Cystic fibrosis with pulmonary manifestations (HCC)- Primary Cystic fibrosis with pulmonary manifestations documented [facility] this encounter [facility]* Diagnosis Cystic fibrosis with pulmonary manifestations (HCC)- Primary Cystic fibrosis with pulmonary manifestations Hemoptysis Hemoptysis, unspecified Pseudomonas aeruginosa infection Pseudomonas infection in conditions classified elsewhere and of unspecified site Burkholderia cepacia infection Infection due to other gram-negative organisms in conditions classified elsewhere and of unspecified site documented in this encounter [facility]* Diagnosis Cystic fibrosis with pulmonary manifestations (HCC) Cystic fibrosis with pulmonary manifestations documented in this encounter [facility]* Diagnosis Cystic fibrosis (HCC) Cystic fibrosis without mention of meconium ileus documented in this encounter [facility]* Diagnosis Cystic fibrosis (HCC)- Primary Cystic [...] uncontrolled, or unspecified [facility] noteNo assessment information availableWMer[facility] Work Phone: Evaluation note* Diagnosis Cystic fibrosis with pulmonary manifestations (HCC)- Primary Cystic fibrosis with pulmonary manifestations [facility] Diagnosis Type 1 diabetes mellitus with [...] of meconium ileus [facility] Diagnosis CF (cystic fibrosis) (HCC)- [...] severe protein-calorie malnutrition [facility]* Diagnosis Cystic fibrosis (HCC) Cystic [...] Low weight Underweight [facility]* Diagnosis Infection- Primary Unspecified infectious and parasitic diseases [facility] Diagnosis Cystic fibrosis with pulmonary manifestations [...] of unspecified site [facility]* Diagnosis Cystic fibrosis with pulmonary manifestations (HCC)- Primary Cystic fibrosis with pulmonary manifestations [facility] Diagnosis Cystic fibrosis with pulmonary manifestations (HCC)- Primary Cystic fibrosis with pulmonary manifestations [facility]* Diagnosis CF (cystic fibrosis) (HCC) Cystic fibrosis without mention of meconium ileus [facility]* Diagnosis Need for prophylactic vaccination [...] of unspecified site [facility] Diagnosis Cystic fibrosis with pulmonary exacerbation (HCC)- Primary Cystic fibrosis with pulmonary manifestations [facility]* Diagnosis Type 1 diabetes mellitus with hyperglycemia (HCC)- Primary 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 mention of complication, not stated as uncontrolled [facility]* Diagnosis Cystic fibrosis with pulmonary manifestations (HCC)- Primary Cystic fibrosis with pulmonary manifestations [facility] Type 1 diabetes mellitus with hyperglycemia (HCC)- Primary 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 mention of complication, not stated as uncontrolled [facility]* Diagnosis Cystic fibrosis with pulmonary manifestations (HCC)- Primary Cystic fibrosis with pulmonary manifestations [facility]* Diagnosis Cystic fibrosis with pulmonary manifestations (HCC) Cystic fibrosis with pulmonary manifestations [facility] Diagnosis Cystic fibrosis with pulmonary manifestations (HCC)- Primary Cystic fibrosis with pulmonary manifestations [facility] Diagnosis Cystic fibrosis (HCC)- Primary Cystic fibrosis without mention of meconium ileus [facility] Diagnosis Cystic fibrosis with pulmonary exacerbation (HCC)- Primary Cystic fibrosis with pulmonary manifestations [facility] Diagnosis Cystic fibrosis (HCC)- Primary Cystic fibrosis without mention of meconium ileus 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) 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) Secondary diabetes mellitus without mention of complication, not stated as uncontrolled, or unspecified Dietary counseling and surveillance Dietary surveillance and counseling [facility] Diagnosis Cystic fibrosis with pulmonary exacerbation [...] Low weight Underweight [facility]* Diagnosis Cystic fibrosis with pulmonary exacerbation (HCC)- Primary Cystic fibrosis with pulmonary manifestations Cystic fibrosis with pulmonary manifestations (HCC) Cystic fibrosis with pulmonary manifestations [facility] Cystic fibrosis with pulmonary exacerbation (HCC)- Primary Cystic fibrosis with pulmonary manifestations [facility]* Diagnosis Type 1 diabetes mellitus with hyperglycemia (HCC)- Primary 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 mention of complication, not stated as uncontrolled [facility]* Diagnosis Cystic fibrosis (HCC) [E84.9 (ICD-10-CM)]- Primary Cystic fibrosis without mention of meconium ileus [facility]* Diagnosis Cystic fibrosis (HCC)- Primary Cystic fibrosis without mention of meconium ileus 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) [facility]* Diagnosis Cystic fibrosis (HCC)- Primary Cystic fibrosis without mention of meconium ileus [facility]* Diagnosis Cystic fibrosis (HCC) Cystic fibrosis without mention of meconium ileus [facility]* Diagnosis Cystic fibrosis with pulmonary manifestations (HCC)- Primary Cystic fibrosis with pulmonary manifestations [facility]* Diagnosis Cystic fibrosis with pulmonary manifestations (HCC)- Primary Cystic fibrosis with pulmonary manifestations Cystic fibrosis with pulmonary exacerbation (HCC) Cystic fibrosis with pulmonary manifestations [facility]* Diagnosis Cystic fibrosis (HCC)- Primary [...] cystic fibrosis (HCC) [facility]* Diagnosis Cystic fibrosis (HCC)- Primary Cystic fibrosis without mention of meconium ileus [facility]* Diagnosis Cystic fibrosis (HCC)- Primary Cystic fibrosis without mention of meconium ileus [facility]* Diagnosis Cystic fibrosis (HCC)- Primary Cystic fibrosis without mention of meconium ileus [facility]* Diagnosis Osteoporosis without current pathological fracture, unspecified osteoporosis type- Primary [facility]* Diagnosis Type 1 diabetes mellitus with hyperglycemia (HCC)- Primary 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 mention of complication, not stated as uncontrolled [facility]* Diagnosis Cystic fibrosis with pulmonary manifestations (HCC)- Primary Cystic fibrosis with pulmonary manifestations [facility] Diagnosis Anemia due to multiple mechanisms- Primary Anemia, unspecified Other specified intestinal malabsorption [facility]* Diagnosis Cystic fibrosis (HCC)- Primary Cystic fibrosis without mention of meconium ileus [facility] Diagnosis Cystic fibrosis with pulmonary manifestations [...] severe protein-calorie malnutrition [facility]* Diagnosis Osteoporosis without current pathological fracture, unspecified osteoporosis type [facility] Diagnosis Osteoporosis, unspecified osteoporosis type, unspecified pathological fracture presence- Primary Cystic fibrosis (HCC) Cystic fibrosis without mention of meconium ileus [facility]* Diagnosis Cystic fibrosis with pulmonary manifestations (HCC)- Primary Cystic fibrosis with pulmonary manifestations [facility] Diagnosis Cystic fibrosis (HCC) Cystic fibrosis without mention of meconium ileus 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) [facility]* Diagnosis Cystic fibrosis (HCC)- Primary Cystic fibrosis without mention of meconium ileus [facility] Diagnosis Type 1 diabetes mellitus with hyperglycemia (HCC) 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 mention of complication, not stated as uncontrolled [facility] Diagnosis Cystic fibrosis (HCC)- Primary Cystic fibrosis without mention of meconium ileus 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) 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) Secondary diabetes mellitus without mention of complication, not stated as uncontrolled, or unspecified Dietary counseling and surveillance Dietary surveillance and counseling Vitamin D deficiency Unspecified vitamin D deficiency [facility] Diagnosis Dyspnea, unspecified type- Primary [facility]* Diagnosis 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)- Primary [facility] Diagnosis Cystic fibrosis (HCC)- Primary Cystic fibrosis without mention of meconium ileus [facility]* Diagnosis Cystic fibrosis (HCC)- Primary Cystic fibrosis without mention of meconium ileus [facility]* Diagnosis Infection- Primary Unspecified infectious and parasitic diseases [facility]* Diagnosis Cystic fibrosis exacerbation (HCC)- Primary Cystic fibrosis without mention of meconium ileus Cystic fibrosis with pulmonary exacerbation (HCC) Cystic fibrosis with pulmonary manifestations [facility]* Diagnosis Cystic fibrosis (HCC)- Primary Cystic fibrosis without mention of meconium ileus 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) Secondary diabetes mellitus without mention of complication, not stated as uncontrolled, or unspecified Cystic fibrosis with pulmonary manifestations (HCC) Cystic fibrosis with pulmonary manifestations Vitamin D deficiency Unspecified vitamin D deficiency [facility]* Diagnosis Type 1 diabetes mellitus with hyperglycemia (HCC) 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 mention of complication, not stated as uncontrolled [facility]* Diagnosis Cystic fibrosis with pulmonary exacerbation (HCC)- Primary Cystic fibrosis with pulmonary manifestations [facility]* Diagnosis Cystic fibrosis (HCC)- Primary Cystic fibrosis without mention of meconium ileus [facility]* Diagnosis Type 1 diabetes mellitus with hyperglycemia (HCC)- Primary 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 mention of complication, not stated as uncontrolled [facility]* Diagnosis 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)- Primary Cystic fibrosis with other manifestations [facility]* Diagnosis Elevated alkaline phosphatase level- Primary Other nonspecific abnormal serum enzyme levels [facility]* Diagnosis Diabetes mellitus related to [...] of unspecified site [facility] Diagnosis Cystic fibrosis with pulmonary exacerbation [...] of unspecified site [facility]* Diagnosis Hyperkalemia- Primary Hyperpotassemia Cystic fibrosis (HCC) Cystic fibrosis without mention of meconium ileus [facility] Diagnosis Cystic fibrosis (HCC)- Primary Cystic fibrosis without mention of meconium ileus [facility]* Diagnosis Cystic fibrosis (HCC) Cystic fibrosis without mention of meconium ileus [facility]* Diagnosis Cystic fibrosis (HCC)- Primary Cystic fibrosis without mention of meconium ileus Cystic fibrosis exacerbation (HCC) Cystic fibrosis without mention of meconium ileus [facility]* Diagnosis Cystic fibrosis (HCC)- Primary Cystic fibrosis without mention of meconium ileus Hyperkalemia Hyperpotassemia Cystic fibrosis with pulmonary manifestations (HCC) Cystic fibrosis with pulmonary manifestations Cystic fibrosis with pulmonary exacerbation (HCC) Cystic fibrosis with pulmonary manifestations Burkholderia cepacia infection Infection due to other gram-negative organisms in conditions classified elsewhere and of unspecified site Pseudomonas aeruginosa infection Pseudomonas infection in conditions classified elsewhere and of unspecified site 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) Chronic sinusitis, unspecified location 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) Cystic fibrosis with other manifestations [facility] Diagnosis Diabetes mellitus related to CF [...] 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) Vitamin D deficiency Unspecified vitamin D deficiency Elevated liver enzymes level due to cystic fibrosis (HCC) (HCC) [facility] Diagnosis Cystic fibrosis with pulmonary manifestations (HCC)- Primary Cystic fibrosis with pulmonary manifestations Hyperkalemia Hyperpotassemia [facility]* Diagnosis Cystic fibrosis (HCC)- Primary Cystic fibrosis without mention of meconium ileus [facility]* Diagnosis Cystic fibrosis (HCC)- Primary Cystic fibrosis without mention of meconium ileus 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) 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) Cystic fibrosis without mention of meconium ileus [facility]* Diagnosis Cystic fibrosis (HCC)- Primary Cystic fibrosis without mention of meconium ileus 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) Secondary diabetes mellitus without mention of complication, not stated as uncontrolled, or unspecified 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) Dietary counseling and surveillance Dietary surveillance and counseling [facility]* Diagnosis Cystic fibrosis (HCC)- Primary Cystic fibrosis without mention of meconium ileus [facility]* Diagnosis Cystic fibrosis (HCC)- Primary Cystic fibrosis without mention of meconium ileus [facility]* Diagnosis Type 1 diabetes mellitus with hyperglycemia (HCC)- Primary 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 mention of complication, not stated as uncontrolled 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) Secondary diabetes mellitus without mention of complication, not stated as uncontrolled, or unspecified [facility]* Diagnosis Cystic fibrosis (HCC)- Primary Cystic fibrosis without mention of meconium ileus [facility]* Diagnosis Cystic fibrosis with pulmonary manifestations (HCC)- Primary Cystic fibrosis with pulmonary manifestations [facility]* Diagnosis Cystic fibrosis with pulmonary manifestations (HCC)- Primary Cystic fibrosis with pulmonary manifestations 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) Secondary diabetes mellitus without mention of complication, not stated as uncontrolled, or unspecified [facility]* Diagnosis Fever, unspecified fever cause- Primary Acute cough Cystic fibrosis (HCC) Cystic fibrosis without mention of meconium ileus [facility]* Diagnosis Cystic fibrosis with pulmonary manifestations (HCC) Cystic fibrosis with pulmonary manifestations documented in this encounter [facility] note* Diagnosis Sore throat- Primary Acute pharyngitis Subacute cough Cough Fever, unspecified fever cause Cystic fibrosis (HCC) Cystic fibrosis without mention of meconium ileus Subacute cough Cough documented in this encounter [facility] note* Diagnosis Subacute cough Cough documented in this [facility]* Diagnosis Cystic fibrosis (HCC)- Primary Cystic fibrosis without mention of meconium ileus documented in this encounter [facility]* Diagnosis Cystic fibrosis (HCC)- Primary Cystic fibrosis without mention of meconium ileus Fever, unspecified fever cause Hyperkalemia Hyperpotassemia Diabetes mellitus related to CF (cystic fibrosis) [...] 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) Vitamin D deficiency Unspecified vitamin D deficiency Elevated liver enzymes level due to cystic fibrosis (HCC) (HCC) documented in this encounter [facility] note* Diagnosis Cystic fibrosis (HCC)- Primary Cystic fibrosis without mention of meconium ileus documented in this encounter [facility] note* Diagnosis Type 1 diabetes mellitus with hyperglycemia (HCC)- Primary 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 mention of complication, not stated as uncontrolled 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) Secondary diabetes mellitus without mention of complication, not stated as uncontrolled, or unspecified documented in this encounter [facility] note* Diagnosis Cystic fibrosis (HCC)- Primary Cystic fibrosis without mention of meconium ileus documented in this encounter [facility] note* Diagnosis Cystic fibrosis (HCC)- Primary Cystic fibrosis without mention of meconium ileus documented in this encounter [facility]* Diagnosis Cystic fibrosis with pulmonary manifestations (HCC)- Primary Cystic fibrosis with pulmonary manifestations documented in this encounter [facility] note* Diagnosis Cystic fibrosis (HCC)- Primary Cystic fibrosis without mention of meconium ileus [facility] No data available for this section [facility] Progress note No data available for this section [facility] Reason for referral (narrative)* Outpatient Procedure (Routine) - Pending Review Specialty Diagnoses / Procedures Referred By Contac t Referred To [facility] Diagnoses Cystic fibrosis with pulmonary manifestations (HCC) Procedures SPIROMETRY BASELINE ONLY SPMTRY W/VC EXPIRATORY CRISTINA W/WO MXML VOL VNTJ Forrest Hale MD [address] [place] [address] [address] Referral ID Status Reason Start Date Expiration Date Visits Requested Visits Authorized [id number] Pending Review Auto-Generat ed Referral 03/12/2022 04/04/2023 1 1 [facility] for referral (narrative)* Outpatient Procedure (Routine) - Pending Review Specialty Diagnoses / Procedures Referred By Contac t Referred To [facility] [place] Diagnoses CF (cystic fibrosis) (HCC) Procedures SPIROMETRY BASELINE ONLY SPMTRY W/VC EXPIRATORY CRISTINA W/WO MXML VOL VNTJ She Pete DO [address] [place] [address] [address] Referral ID Status Reason Start Date Expiration Date Visits Requested Visits Authorized [id number] Pending Review Auto-Generat ed Referral 08/28/2022 09/27/2023 1 1 [facility] for referral (narrative)* Outpatient Procedure (Routine) - Pending Review Specialty Diagnoses / Procedures Referred By Contac t Referred To [facility] [place] Diagnoses Cystic fibrosis (HCC) Procedures SPIROMETRY BASELINE ONLY SPMTRY W/VC EXPIRATORY CRISTINA W/WO MXML VOL VNTJ Sally Schneider APRN.[employer] [address] [place] [address] [address] Referral ID Status Reason Start Date Expiration Date Visits Requested Visits Authorized [id number] Pending Review Auto-Generat ed Referral 2 12/11/2023 1 1 [facility] for referral (narrative)* Outpatient Procedure (Routine) - Pending Review Specialty Diagnoses / Procedures Referred By Contac t Referred To [facility] Diagnoses Cystic fibrosis with pulmonary manifestations (HCC) Cystic fibrosis with pulmonary exacerbation (HCC) Procedures SPIROMETRY BASELINE ONLY SPMTRY W/VC EXPIRATORY CRISTINA W/WO MXML VOL She Granado DO [address] [place] [address] [address] Referral ID Status Reason Start Date Expiration Date Visits Requested Visits Authorized [id number] Pending Review Auto-Generat ed Referral 2 12/20/2023 1 1 [facility] for referral (narrative)* Outpatient Procedure (Routine) - Authorized Specialty Diagnoses / Procedures Referred By Contac t Referred To [facility] [place] Diagnoses Cystic fibrosis with pulmonary manifestations (HCC) Procedures SPIROMETRY BASELINE ONLY SPMTRY W/VC EXPIRATORY CRISTINA W/WO MXML VOL She Granado DO [address] [place] [address] [address] Referral ID Status Reason Start Date Expiration Date Visits Requested Visits Authorized [id number] Authorized Auto-Generat ed Referral 03/03/2023 04/01/2024 1 1 [facility] for referral (narrative)* Outpatient Procedure (Routine) - Authorized Specialty Diagnoses / Procedures Referred By Contac t Referred To [facility] [place] Diagnoses Cystic fibrosis (HCC) Procedures SPIROMETRY BASELINE ONLY SPMTRY W/VC EXPIRATORY CRISTINA W/WO MXML VOL VNTJ Sally Schneider APRN.[employer] [address] [place] [address] [facility] [place] [address] [place], [place] [id number] Referral ID Status Reason Start Date Expiration Date Visits Requested Visits Authorized [id number] Authorized Auto-Generat ed Referral 03/10/2023 04/08/2024 1 1 [facility] for referral (narrative)* Diagnostic Procedure Only (Routine) - Pending Review Specialty Diagnoses / Procedures Referred By Contac t Referred To Contact XR IMAGING Diagnoses Cystic fibrosis (HCC) 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) Procedures XR ABDOMEN 1V SUPINE RADIOLOGIC EXAM ABDOMEN 1 VIEW Sally Schneider APRN.BUGGY LADLE TENDER [address] [place] [address] Xr Imaging Referral ID Status Reason Start Date Expiration Date Visits Requested Visits Authorized [id number] Pending Review Auto-Generat ed Referral 05/19/2023 06/17/2024 1 1 [facility] for referral (narrative)* Outpatient Procedure (Routine) - Authorized Specialty Diagnoses / Procedures Referred By Contac t Referred To Contact [facility] Diagnoses Cystic fibrosis with pulmonary manifestations (HCC) Procedures SPIROMETRY BASELINE ONLY SPMTRY W/VC EXPIRATORY CRISTINA W/WO MXML VOL Jean Pierre Chase MD [address] [facility] [address] [place] [address] [facility] [place] [address] [place] [address] Referral ID Status Reason Start Date Expiration Date Visits Requested Visits Authorized [id number] Authorized Auto-Generat ed Referral 06/04/2023 07/03/2024 1 1 [facility] for referral (narrative)* Diagnostic Procedure Only (Routine) - Closed Specialty Diagnoses / Procedures Referred By Contac t Referred To Contact XR IMAGING Diagnoses Cystic fibrosis (HCC) Procedures XR ABDOMEN 1V SUPINE RADIOLOGIC EXAM ABDOMEN 1 VIEW Sally Schneider APRN.CNP [address] [place] [id number] Xr Imaging Referral ID Status Reason Start Date Expiration Date V isits Requested Visits Authorized [id number] Closed Auto-Generate d Referral 07/02/2023 07/31/2024 1 1 [facility] for referral (narrative)* Diagnostic Procedure Only (Routine) - Pending Review Specialty Diagnoses / Procedures Referred By Contac t Referred To Contact XR IMAGING Diagnoses Osteoporosis without current pathological fracture, unspecified osteoporosis type Procedures DXA-AXIAL SKELETON WITH VFA DXA BONE DENSITY STUDY AXIAL SKELETON She Pete DO [address] [place] [address] Xr Imaging [facility]95 Referral ID Status Reason Start Date Expiration Date Visits Requested Visits Authorized [id number] Pending Review Auto-Generat ed Referral 08/01/2023 08/30/2024 1 1 [facility] for referral (narrative)* Outpatient Procedure (Routine) - Authorized Specialty Diagnoses / Procedures Referred By Contac t Referred To Contact [facility] Diagnoses Cystic fibrosis with pulmonary manifestations (HCC) Procedures SPIROMETRY BASELINE ONLY SPMTRY W/VC EXPIRATORY CRISTINA W/WO MXML VOL VNTJ She Pete DO [address] [place] [address] [facility] [place] [address] [place] [address] Referral ID Status Reason Start Date Expiration Date Visits Requested Visits Authorized [id number] Authorized Auto-Generat ed Referral 10/23/2024 1 1 [...] to cystic fibrosis (HCC) She Pete DO [address] [place] [address] Referral ID Status Reason Start Date Expiration Date Visits Re quested Visits Authorized [id number] Closed 1 1 [facility] for referral (narrative)* Diagnostic Procedure Only (Routine) - Closed Specialty Diagnoses / Procedures Referred By Contac t Referred To Contact XR IMAGING Diagnoses Cystic fibrosis (HCC) 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) Procedures XR ABDOMEN 1V SUPINE RADIOLOGIC EXAM ABDOMEN 1 VIEW Sally Schneider APRN.CNP [address] [place] [address] Xr Imaging [place] [address] Referral ID Status Reason Start Date Expiration Date V isits Requested Visits Authorized [id number] Closed Auto-Generate d Referral 05/19/2023 06/17/2024 1 1 [facility] for referral (narrative)* Diagnostic Procedure Only (Routine) - Closed Specialty Diagnoses / Procedures Referred By Contac t Referred To Contact [facility] Diagnoses Cystic fibrosis with pulmonary manifestations (HCC) Procedures SPIROMETRY BASELINE ONLY SPMTRY W/VC EXPIRATORY CRISTINA W/WO MXML VOL VNTJ Jean Pierre Kilgore MD [address] [facility] [address] [place] [address] [facility] [place] [address] [place], [place] [id number] Referral ID Status Reason Start Date Expiration Date Visits Re quested Visits Authorized [id number] Closed 05/05/2024 11/30/2024 1 1 [facility] for referral (narrative)* Outpatient Procedure (Routine) - Pending Review Specialty Diagnoses / Procedures Referred By Contac t Referred To Contact [facility] Diagnoses Cystic fibrosis (HCC) Procedures SPIROMETRY BASELINE ONLY SPMTRY W/VC EXPIRATORY CRISTINA W/WO MXML VOL VNTJ Sally Schneider APRN.BUGGY LADLE TENDER [address] [place] [address] [facility] [place] [address] [place] [address] Referral ID Status Reason Start Date Expiration Date Visits Requested Visits Authorized [id number] Pending Review Auto-Generat ed Referral 05/05/2024 06/04/2025 1 1 * Diagnostic Procedure Only (Routine) - Pending Review Specialty Diagnoses / Procedures Referred By Contac t Referred To Contact XR IMAGING Diagnoses Cystic fibrosis (HCC) Procedures DXA-AXIAL SKELETON WITH VFA DXA BONE DENSITY STUDY AXIAL SKELETON Sally Schneider APRN.CNP [address] [place] [id number] Xr Imaging [facility]95 Referral ID Status Reason Start Date Expiration Date Visits Requested Visits Authorized [id number] Pending Review Auto-Generat ed Referral 05/05/2024 06/04/2025 1 1 [facility] for referral (narrative)* Outpatient Procedure (Routine) - Authorized Specialty Diagnoses / Procedures Referred By Contac t Referred To Contact [facility] Diagnoses Cystic fibrosis with pulmonary manifestations (HCC) Procedures SPIROMETRY BASELINE ONLY SPMTRY W/VC EXPIRATORY CRISTINA W/WO MXML VOL Jean Pierre Chase MD [address] [facility] [address] [place] [address] [facility] [place] [address] [place] [address] Referral ID Status Reason Start Date Expiration Date Visits Requested Visits Authorized [id number] Authorized Auto-Generat ed Referral 05/05/2024 06/04/2025 1 1 * Outpatient Procedure (Routine) - New Request Specialty Diagnoses / Procedures Referred By Contac t Referred To Contact [facility] Diagnoses Cystic fibrosis with pulmonary manifestations (HCC) Procedures SPIROMETRY BASELINE ONLY SPMTRY W/VC EXPIRATORY CRISTINA W/WO MXML VOL ADILENETJean Pierre Loera MD [address] [facility] [address] [place] [address] [facility] [place] [address] [place], [place] [id number] Referral ID Status Reason Start Date Expiration Date Visits Requested Visits Authorized [id number] New Request Auto-Generat ed Referral 05/05/2024 06/04/2025 1 1 [facility] for referral (narrative)* Outpatient Procedure (Routine) - Authorized Specialty Diagnoses / Procedures Referred By Contac t Referred To [facility] Diagnoses Cystic fibrosis (HCC) Procedures SPIROMETRY BASELINE ONLY SPMTRY W/VC EXPIRATORY CRISTINA W/WO MXML VOL ADILENETSally [place] APRN.BUGGY LADLE TENDER [address] [place] [address] [address] Referral ID Status Reason Start Date Expiration Date Visits Requested Visits Authorized [id number] Authorized Auto-Generat ed Referral 09/02/2024 10/02/2025 1 1 [facility] for referral (narrative)* Outpatient Procedure (Routine) - New Request Specialty Diagnoses / Procedures Referred By Contac t Referred To [facility] [place] Diagnoses Cystic fibrosis (HCC) Procedures SPIROMETRY BASELINE ONLY SPMTRY W/VC EXPIRATORY CRISTINA W/WO MXML VOL VNTSally [place] APRN.CNP [address] [facility] [place] [address] [address] Referral ID Status Reason Start Date Expiration Date Visits Requested Visits Authorized [id number] New Request Auto-Generat ed Referral 10/09/2025 1 1 [facility] for referral (narrative)* Outpatient Procedure (Routine) - New Request Specialty Diagnoses / Procedures Referred By Contac t Referred To Contact [facility] Diagnoses Cystic fibrosis (HCC) Procedures SPIROMETRY BASELINE ONLY SPMTRY W/VC EXPIRATORY CRISTINA W/WO MXML VOL VNTJ Sally Schneider APRN.CNP [address] [place] [address] [facility] [place] [id number] Referral ID Status Reason Start Date Expiration Date Visits Requested Visits Authorized [id number] New Request Auto-Generat ed Referral 10/06/2024 11/05/2025 1 1 [facility] for visit Narrative* Outpatient Procedure (Routine) - Closed Specialty Diagnoses / Procedures Referred By Contac t Referred To Contact [facility] [place] Diagnoses Cystic fibrosis (HCC) Procedures SPIROMETRY BASELINE ONLY SPMTRY W/VC EXPIRATORY CRISTINA W/WO MXML VOL VNTJ She Pete, [address] [place] [address] [place] [id number] Referral ID Status Reason Start Date Expiration Date V isits Requested Visits Authorized [id number] Closed Auto-Generate d Referral 03/19/2023 04/17/2024 1 1 [facility] for visit Narrative* Diagnostic Procedure Only (Routine) - Closed Specialty Diagnoses / Procedures Referred By Contac t Referred To Contact XR IMAGING Diagnoses Osteoporosis without current pathological fracture, unspecified osteoporosis type Procedures DXA-AXIAL SKELETON WITH VFA DXA BONE DENSITY STUDY AXIAL SKELETON She Pete, [address] [place] [address] Xr Imaging [facility]95 Referral ID Status Reason Start Date Expiration Date V isits Requested Visits Authorized [id number] Closed Auto-Generate d Referral 08/01/2023 08/30/2024 1 [facility] Diagnostic Procedure Only (Routine) - Closed Specialty Diagnoses / Procedures Referred By Jennifer t Referred To Contact XR IMAGING Diagnoses Cystic fibrosis (HCC) 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) Procedures XR ABDOMEN 1V SUPINE RADIOLOGIC EXAM ABDOMEN 1 VIEW Sally Schneider, ACCOUNTING REPRESENTATIVE.BUGGY LADLE TENDER [address] [place] [address] Xr Imaging [place] [address] Referral ID Status Reason Start Date Expiration Date V isits Requested Visits Authorized [id number] Closed Auto-Generate d Referral 05/19/2023 06/17/2024 1 1 [facility] Summary Purpose Family History Relationship Condition Age at Onset Recorded Date/T lucrecia Unknown Family History?- Unknown July 04, 2020 3:27pm Family History?High Cholesterol, Hypertension Unknown July 04, 2020 3:27pm Relationship Condition Age at Onset Recorded Date/T lucrecia Unknown Family History?- Unknown July 04, 2020 2:27pm Family History?High Cholesterol, Hypertension Unknown July 04, 2020 2:27pm Advance Directives Date Activated Date Inactivated Comments 02/05/2024 1:40 PM 02/16/2024 6:26 PM Question Answer Comments DNR Order Discussed With: Patient Date Activated Date Inactivated Comments 07/03/2023 3:32 PM 07/29/2023 10:20 PM Question Answer Comments Full Code Order Discussed With: Patient Date Activated Date Inactivated Comments 03/07/2023 7:24 PM 03/11/2023 7:37 PM Question Answer Comments DNR Order Discussed With: Patient Advance Directive Response Recorded Date/ Time Living Will No July 05, 2020 10:20am Power of [employer] Production Heater No July 05 10:20am Advance Directive Response Recorded Date/ Time Living Will No July 05, 2020 9:20am Power of [employer] Heater No July 05 9:20am Latest Code Status on File Code Status [...] 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) Vitamin D deficiency Elevated liver enzymes level due to cystic fibrosis (HCC) (HCC) Sally Schneider APRN.BUGGY LADLE TENDER [address] [place] [address] Referral ID Status Reason Start Date Expiration Date Visits Re quested Visits Authorized [id number] Closed 1 1 Specialty Diagnoses / Procedures Referred By Contac t Referred To Contact Diagnoses Hyperkalemia Sally Schneider APRN.BUGGY LADLE TENDER [address] [place] [address] Referral ID Status Reason Start Date Expiration Date V isits Requested Visits Authorized [id number] Authorized 08/27/2024 08/26/2025 1 1 Specialty Diagnoses / Procedures Referred By Contac t Referred To Contact Diagnoses 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 Sally Schneider APRN.BUGGY LADLE TENDER [address] [place] [address] Referral ID Status Reason Start Date Expiration Date Visits Re quested Visits Authorized [id number] Closed 1 1 Referral ID Status Reason Start Date Expiration Date V isits Requested Visits Authorized [id number] Pending Review 08/19/2024 10/18/2024 1 1 Specialty Diagnoses / Procedures Referred By Contac t Referred To Contact MR IMAGING Diagnoses Abnormal results of liver function studies Procedures MRI PANC/MARYAM WO/W IVCON MRI ABDOMEN W/O & W/CONTRAST MATERIAL Mono Lan MD [address] [place] [address] Mr Imaging [place] [address] Referral ID Status Reason Start Date Expiration Date V isits Requested Visits Authorized [id number] Closed Auto-Generate d Referral 04/23/2024 06/22/2024 1 1 Specialty Diagnoses / Procedures Referred By Contac t Referred To Contact Rheumatology Diagnoses Cystic fibrosis (HCC) Procedures CONSULT TO RHEUMATOLOGY METABOLIC BONE OFFICE/OUTPATIENT NEW HIGH MDM 60-74 MINUTES Sally Schneider APRN.BUGGY LADLE TENDER [address] [place] [address] Referral ID Status Reason Start Date Expiration Date Visits Requested Visits Authorized [id number] Authorized PCP Requested Referral 3 11/12/2024 1 1 Specialty Diagnoses / Procedures Referred By Contac t Referred To Contact Diagnoses Osteoporosis, unspecified osteoporosis type, unspecified pathological fracture presence Cystic fibrosis (HCC) Procedures CONSULT TO ENDO METABOLIC BONE OFFICE/OUTPATIENT [facility] 60-74 MINUTES She Pete, [address] [place] [address] Referral ID Status Reason Start Date Expiration Date Visits Requested Visits Authorized [id number] Authorized PCP Requested Referral 3 09/28/2024 1 1 Specialty Diagnoses / Procedures Referred By Contac t Referred To Contact Diagnoses Cystic fibrosis (HCC) Cystic fibrosis with pulmonary exacerbation (HCC) She Ptee DO [address] [place] [address] Referral ID Status Reason Start Date Expiration Date Visits Re quested Visits Authorized [id number] Closed 1 1 Specialty Diagnoses / Procedures Referred By Contac t Referred To Contact [facility] Diagnoses Cystic fibrosis (HCC) Procedures SPIROMETRY BASELINE ONLY SPMTRY W/VC EXPIRATORY CRISTINA W/WO MXML VOL VNTJ She Pete DO [address] [place] [address] [facility] [place] [address] [place] [address] Referral ID Status Reason Start Date Expiration Date Visits Requested Visits Authorized [id number] Authorized Auto-Generat ed Referral 03/19/2023 04/17/2024 1 1 Specialty Diagnoses / Procedures Referred By Contac t Referred To Contact Sally Schneider APRN.BUGGY LADLE TENDER [address] [place] [address] Referral ID Status Reason Start Date Expiration Date Visits Re quested Visits Authorized [id number] Closed 1 1 Specialty Diagnoses / Procedures Referred By Contac t Referred To Contact Diagnoses Cystic fibrosis with pulmonary manifestations (HCC) Cystic fibrosis with liver disease (HCC) Procedures CONSULT TO HEPATOLOGY OFFICE/OUTPATIENT NEW HIGH MDM 60-74 MINUTES She Pete DO [address] [place] [address] Referral ID Status Reason Start Date Expiration Date Visits Requested Visits Authorized [id number] Authorized PCP Requested Referral 07/21/2022 07/21/2023 1 [...] DENSITY STUDY AXIAL SKELETON She Pete DO [address] [place] [address] Xr Imaging Referral ID Status Reason Start Date Expiration Date Visits Requested Visits Authorized [id number] Pending Review Auto-Generat ed Referral 07/21/2022 08/20/2023 [...] W/WO MXML VOL VNTJ She Pete DO [address] [place] [address] [facility] [place] [address] [place] [address] Referral ID Status Reason Start Date Expiration Date Visits Requested Visits Authorized [id number] Pending Review Auto-Generat ed Referral 07/21/2022 08/20/2023 1 1 Specialty Diagnoses / Procedures Referred By Contac t Referred To Contact [facility] Diagnoses Cystic fibrosis with pulmonary manifestations (HCC) 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) Chronic pansinusitis Low weight Encounter for screening for osteoporosis Procedures ECHO ECHO TTHRC R-T 2D W/WOM-MODE COMPL SPEC&COLR D She Pete DO [address] [place] [address] [facility] [place] [address] [place] [address] Referral ID Status Reason Start Date Expiration Date Visits Requested Visits Authorized [id number] Pending Review Auto-Generat ed Referral 07/21/2022 07/21/2023 [...] US ABDOMINAL REAL [place] W/[place] [address] [place] [address] [facility] Referral ID Status Reason Start Date Expiration Date Visits Requested Visits Authorized [id number] Pending Review Auto-Generat ed Referral 07/21/2022 08/20/2023 1 1 Specialty Diagnoses / Procedures Referred By Contac t Referred To Contact [facility] Diagnoses Cystic fibrosis with liver disease (HCC) Procedures DDI VIBRATION CONTROLLED TRANSIENT ELASTOGRAPHY (VCTE) LIVER ELASTOGRAPHY W/O IMAG W/I&[place] [address] [place] [address] [facility] [place] [address] [place] [address] Referral ID Status Reason Start Date Expiration Date Visits Requested Visits Authorized [id number] Pending Review Auto-Generat ed Referral 07/21/2022 07/21/2023 1 1 Specialty Diagnoses / Procedures Referred By Contac t [place] [address] [place] [address] Referral ID Status Reason Start Date Expiration Date Visits Re quested Visits Authorized [id number] Closed 1 1 Chief Complaint and Reason for Visit Chief Complaint PICC DRAW & Drsg Kristen siddiqi Chief Complaint LABS/DRESSING CHANGE LABS/DRESSING CHANGE LABS PICC DC Chief Complaint PICC DRAW/DRSG ÁNGEL Serrano Chief Complaint PICC DRAW/DRSG ÁNGEL Serrano PICC DRAW/DRSG CHANGE Health Concerns Infection Onset Date Last Indicated [...] section and content) DATE CREATED AUTHOR 10/08/2018 [facility] DATE CREATED AUTHOR AUTHOR'S ORGANIZ ATION 05/15/2022 [facility] DATE CREATED AUTHOR AUTHOR'S ORGANIZ ATION 05/22/2022 [facility] DATE CREATED AUTHOR AUTHOR'S ORGANIZ ATION 07/16/2023 [facility] DATE CREATED AUTHOR AUTHOR'S ORGANIZ ATION 10/18/2024 [facility] DATE CREATED AUTHOR AUTHOR'S ORGANIZ ATION 02/16/2025 [facility] DATE CREATED AUTHOR AUTHOR'S ORGANIZ ATION 04/17/2025 [facility] Source Comments (unrecognize d section and content) In the event this informatio n is protected by the Federal Confidentiality of Alcohol and Drug Abuse Patient Records regulations: The Federal rules restrict any use of the information to criminally investigate or prosecute any alcohol or drug abuse patient.[facility] the event this information is protected by the Federal Confidentiality of Alcohol and Drug Abuse Patient Records regulations: The Federal rules restrict any use of the information to criminally investigate or prosecute any alcohol or drug abuse patient.[facility] the event this information is protected by the Federal Confidentiality of Alcohol and Drug Abuse Patient Records regulations: The Federal rules restrict any use of the information to criminally investigate or prosecute any alcohol or drug abuse patient.[facility] the event this information is protected by the Federal Confidentiality of Alcohol and Drug Abuse Patient Records regulations: The Federal rules restrict any use of the information to criminally investigate or prosecute any alcohol or drug abuse patient.[facility] the event this information is protected by the Federal Confidentiality of Alcohol and Drug Abuse Patient Records regulations: The Federal rules restrict any use of the information to criminally investigate or prosecute any alcohol or drug abuse patient.[facility] the event this information is protected by the Federal Confidentiality of Alcohol and Drug Abuse Patient Records regulations: The Federal rules restrict any use of the information to criminally investigate or prosecute any alcohol or drug abuse patient.[facility] the event this information is protected by the Federal Confidentiality of Alcohol and Drug Abuse Patient Records regulations: The Federal rules restrict any use of the information to criminally investigate or prosecute any alcohol or drug abuse patient.[facility] Hospital[facility] the event this information is protected by the Federal Confidentiality of Alcohol and Drug Abuse Patient Records regulations: The Federal rules restrict any use of the information to criminally investigate or prosecute any alcohol or drug abuse patient.[facility] Hospital[facility] the event this information is protected by the Federal Confidentiality of Alcohol and Drug Abuse Patient Records regulations: The Federal rules restrict any use of the information to criminally investigate or prosecute any alcohol or drug abuse patient.[facility] Hospital[facility] the event this information is protected by the Federal Confidentiality of Alcohol and Drug Abuse Patient Records regulations: The Federal rules restrict any use of the information to criminally investigate or prosecute any alcohol or drug abuse patient.[facility] Hospital[facility] the event this information is protected by the Federal Confidentiality of Alcohol and Drug Abuse Patient Records regulations: The Federal rules restrict any use of the information to criminally investigate or prosecute any alcohol or drug abuse patient.[facility] Hospital[facility] the event this information is protected by the Federal Confidentiality of Alcohol and Drug Abuse Patient Records regulations: The Federal rules restrict any use of the information to criminally investigate or prosecute any alcohol or drug abuse patient.[facility] Hospital[facility] the event this information is protected by the Federal Confidentiality of Alcohol and Drug Abuse Patient Records regulations: The Federal rules restrict any use of the information to criminally investigate or prosecute any alcohol or drug abuse patient.[facility] Hospital[facility] the event this information is protected by the Federal Confidentiality of Alcohol and Drug Abuse Patient Records regulations: The Federal rules restrict any use of the information to criminally investigate or prosecute any alcohol or drug abuse patient.[facility] Hospital[facility] the event this information is protected by the Federal Confidentiality of Alcohol and Drug Abuse Patient Records regulations: The Federal rules restrict any use of the information to criminally investigate or prosecute any alcohol or drug abuse patient.[facility] Hospital[facility] the event this information is protected by the Federal Confidentiality of Alcohol and Drug Abuse Patient Records regulations: The Federal rules restrict any use of the information to criminally investigate or prosecute any alcohol or drug abuse patient.[facility] Hospital[facility] the event this information is protected by the Federal Confidentiality of Alcohol and Drug Abuse Patient Records regulations: The Federal rules restrict any use of the information to criminally investigate or prosecute any alcohol or drug abuse patient.[facility] Hospital[facility] the event this information is protected by the Federal Confidentiality of Alcohol and Drug Abuse Patient Records regulations: The Federal rules restrict any use of the information to criminally investigate or prosecute any alcohol or drug abuse patient.[facility]In the event this information is protected by the Federal Confidentiality of Alcohol and Drug Abuse Patient Records regulations: The Federal rules restrict any use of the information to criminally investigate or prosecute any alcohol or drug abuse patient.[facility]In the event this information is protected by the Federal Confidentiality of Alcohol and Drug Abuse Patient Records regulations: The Federal rules restrict any use of the information to criminally investigate or prosecute any alcohol or drug abuse patient.[facility]In the event this information is protected by the Federal Confidentiality of Alcohol and Drug Abuse Patient Records regulations: The Federal rules restrict any use of the information to criminally investigate or prosecute any alcohol or drug abuse patient.[facility]In the event this information is protected by the Federal Confidentiality of Alcohol and Drug Abuse Patient Records regulations: The Federal rules restrict any use of the information to criminally investigate or prosecute any alcohol or drug abuse patient.[facility]In the event this information is protected by the Federal Confidentiality of Alcohol and Drug Abuse Patient Records regulations: The Federal rules restrict any use of the information to criminally investigate or prosecute any alcohol or drug abuse patient.[facility]In the event this information is protected by the Federal Confidentiality of Alcohol and Drug Abuse Patient Records regulations: The Federal rules restrict any use of the information to criminally investigate or prosecute any alcohol or drug abuse patient.[facility]In the event this information is protected by the Federal Confidentiality of Alcohol and Drug Abuse Patient Records regulations: The Federal rules restrict any use of the information to criminally investigate or prosecute any alcohol or drug abuse patient.[facility]In the event this information is protected by the Federal Confidentiality of Alcohol and Drug Abuse Patient Records regulations: The Federal rules restrict any use of the information to criminally investigate or prosecute any alcohol or drug abuse patient.[facility]In the event this information is protected by the Federal Confidentiality of Alcohol and Drug Abuse Patient Records regulations: The Federal rules restrict any use of the information to criminally investigate or prosecute any alcohol or drug abuse patient.[facility]In the event this information is protected by the Federal Confidentiality of Alcohol and Drug Abuse Patient Records regulations: The Federal rules restrict any use of the information to criminally investigate or prosecute any alcohol or drug abuse patient.[facility]In the event this information is protected by the Federal Confidentiality of Alcohol and Drug Abuse Patient Records regulations: The Federal rules restrict any use of the information to criminally investigate or prosecute any alcohol or drug abuse patient.[facility]In the event this information is protected by the Federal Confidentiality of Alcohol and Drug Abuse Patient Records regulations: The Federal rules restrict any use of the information to criminally investigate or prosecute any alcohol or drug abuse patient.[facility]In the event this information is protected by the Federal Confidentiality of Alcohol and Drug Abuse Patient Records regulations: The Federal rules restrict any use of the information to criminally investigate or prosecute any alcohol or drug abuse patient.[facility]In the event this information is protected by the Federal Confidentiality of Alcohol and Drug Abuse Patient Records regulations: The Federal rules restrict any use of the information to criminally investigate or prosecute any alcohol or drug abuse patient.[facility]In the event this information is protected by the Federal Confidentiality of Alcohol and Drug Abuse Patient Records regulations: The Federal rules restrict any use of the information to criminally investigate or prosecute any alcohol or drug abuse patient.[facility]In the event this information is protected by the Federal Confidentiality of Alcohol and Drug Abuse Patient Records regulations: The Federal rules restrict any use of the information to criminally investigate or prosecute any alcohol or drug abuse patient.[facility]In the event this information is protected by the Federal Confidentiality of Alcohol and Drug Abuse Patient Records regulations: The Federal rules restrict any use of the information to criminally investigate or prosecute any alcohol or drug abuse patient.[facility]In the event this information is protected by the Federal Confidentiality of Alcohol and Drug Abuse Patient Records regulations: The Federal rules restrict any use of the information to criminally investigate or prosecute any alcohol or drug abuse patient.[facility]In the event this information is protected by the Federal Confidentiality of Alcohol and Drug Abuse Patient Records regulations: The Federal rules restrict any use of the information to criminally investigate or prosecute any alcohol or drug abuse patient.[facility]In the event this information is protected by the Federal Confidentiality of Alcohol and Drug Abuse Patient Records regulations: The Federal rules restrict any use of the information to criminally investigate or prosecute any alcohol or drug abuse patient.[facility]In the event this information is protected by the Federal Confidentiality of Alcohol and Drug Abuse Patient Records regulations: The Federal rules restrict any use of the information to criminally investigate or prosecute any alcohol or drug abuse patient.[facility]In the event this information is protected by the Federal Confidentiality of Alcohol and Drug Abuse Patient Records regulations: The Federal rules restrict any use of the information to criminally investigate or prosecute any alcohol or drug abuse patient.[facility]In the event this information is protected by the Federal Confidentiality of Alcohol and Drug Abuse Patient Records regulations: The Federal rules restrict any use of the information to criminally investigate or prosecute any alcohol or drug abuse patient.[facility]In the event this information is protected by the Federal Confidentiality of Alcohol and Drug Abuse Patient Records regulations: The Federal rules restrict any use of the information to criminally investigate or prosecute any alcohol or drug abuse patient.[facility]In the event this information is protected by the Federal Confidentiality of Alcohol and Drug Abuse Patient Records regulations: The Federal rules restrict any use of the information to criminally investigate or prosecute any alcohol or drug abuse patient.[facility]In the event this information is protected by the Federal Confidentiality of Alcohol and Drug Abuse Patient Records regulations: The Federal rules restrict any use of the information to criminally investigate or prosecute any alcohol or drug abuse patient.[facility]In the event this information is protected by the Federal Confidentiality of Alcohol and Drug Abuse Patient Records regulations: The Federal rules restrict any use of the information to criminally investigate or prosecute any alcohol or drug abuse patient.[facility]In the event this information is protected by the Federal Confidentiality of Alcohol and Drug Abuse Patient Records regulations: The Federal rules restrict any use of the information to criminally investigate or prosecute any alcohol or drug abuse patient.[facility]In the event this information is protected by the Federal Confidentiality of Alcohol and Drug Abuse Patient Records regulations: The Federal rules restrict any use of the information to criminally investigate or prosecute any alcohol or drug abuse patient.[facility]In the event this information is protected by the Federal Confidentiality of Alcohol and Drug Abuse Patient Records regulations: The Federal rules restrict any use of the information to criminally investigate or prosecute any alcohol or drug abuse patient.[facility]In the event this information is protected by the Federal Confidentiality of Alcohol and Drug Abuse Patient Records regulations: The Federal rules restrict any use of the information to criminally investigate or prosecute any alcohol or drug abuse patient.[facility]In the event this information is protected by the Federal Confidentiality of Alcohol and Drug Abuse Patient Records regulations: The Federal rules restrict any use of the information to criminally investigate or prosecute any alcohol or drug abuse patient.[facility]In the event this information is protected by the Federal Confidentiality of Alcohol and Drug Abuse Patient Records regulations: The Federal rules restrict any use of the information to criminally investigate or prosecute any alcohol or drug abuse patient.[facility]In the event this information is protected by the Federal Confidentiality of Alcohol and Drug Abuse Patient Records regulations: The Federal rules restrict any use of the information to criminally investigate or prosecute any alcohol or drug abuse patient.[facility]In the event this information is protected by the Federal Confidentiality of Alcohol and Drug Abuse Patient Records regulations: The Federal rules restrict any use of the information to criminally investigate or prosecute any alcohol or drug abuse patient.[facility]In the event this information is protected by the Federal Confidentiality of Alcohol and Drug Abuse Patient Records regulations: The Federal rules restrict any use of the information to criminally investigate or prosecute any alcohol or drug abuse patient.[facility]In the event this information is protected by the Federal Confidentiality of Alcohol and Drug Abuse Patient Records regulations: The Federal rules restrict any use of the information to criminally investigate or prosecute any alcohol or drug abuse patient.[facility]In the event this information is protected by the Federal Confidentiality of Alcohol and Drug Abuse Patient Records regulations: The Federal rules restrict any use of the information to criminally investigate or prosecute any alcohol or drug abuse patient.[facility]In the event this information is protected by the Federal Confidentiality of Alcohol and Drug Abuse Patient Records regulations: The Federal rules restrict any use of the information to criminally investigate or prosecute any alcohol or drug abuse patient.[facility]In the event this information is protected by the Federal Confidentiality of Alcohol and Drug Abuse Patient Records regulations: The Federal rules restrict any use of the information to criminally investigate or prosecute any alcohol or drug abuse patient.[facility]In the event this information is protected by the Federal Confidentiality of Alcohol and Drug Abuse Patient Records regulations: The Federal rules restrict any use of the information to criminally investigate or prosecute any alcohol or drug abuse patient.[facility]In the event this information is protected by the Federal Confidentiality of Alcohol and Drug Abuse Patient Records regulations: The Federal rules restrict any use of the information to criminally investigate or prosecute any alcohol or drug abuse patient.[facility]In the event this information is protected by the Federal Confidentiality of Alcohol and Drug Abuse Patient Records regulations: The Federal rules restrict any use of the information to criminally investigate or prosecute any alcohol or drug abuse patient.[facility]In the event this information is protected by the Federal Confidentiality of Alcohol and Drug Abuse Patient Records regulations: The Federal rules restrict any use of the information to criminally investigate or prosecute any alcohol or drug abuse patient.[facility]In the event this information is protected by the Federal Confidentiality of Alcohol and Drug Abuse Patient Records regulations: The Federal rules restrict any use of the information to criminally investigate or prosecute any alcohol or drug abuse patient.[facility]In the event this information is protected by the Federal Confidentiality of Alcohol and Drug Abuse Patient Records regulations: The Federal rules restrict any use of the information to criminally investigate or prosecute any alcohol or drug abuse patient.[facility]In the event this information is protected by the Federal Confidentiality of Alcohol and Drug Abuse Patient Records regulations: The Federal rules restrict any use of the information to criminally investigate or prosecute any alcohol or drug abuse patient.[facility]In the event this information is protected by the Federal Confidentiality of Alcohol and Drug Abuse Patient Records regulations: The Federal rules restrict any use of the information to criminally investigate or prosecute any alcohol or drug abuse patient.[facility]In the event this information is protected by the Federal Confidentiality of Alcohol and Drug Abuse Patient Records regulations: The Federal rules restrict any use of the information to criminally investigate or prosecute any alcohol or drug abuse patient.[facility]In the event this information is protected by the Federal Confidentiality of Alcohol and Drug Abuse Patient Records regulations: The Federal rules restrict any use of the information to criminally investigate or prosecute any alcohol or drug abuse patient.[facility]In the event this information is protected by the Federal Confidentiality of Alcohol and Drug Abuse Patient Records regulations: The Federal rules restrict any use of the information to criminally investigate or prosecute any alcohol or drug abuse patient.[facility]In the event this information is protected by the Federal Confidentiality of Alcohol and Drug Abuse Patient Records regulations: The Federal rules restrict any use of the information to criminally investigate or prosecute any alcohol or drug abuse patient.[facility]In the event this information is protected by the Federal Confidentiality of Alcohol and Drug Abuse Patient Records regulations: The Federal rules restrict any use of the information to criminally investigate or prosecute any alcohol or drug abuse patient.[facility]In the event this information is protected by the Federal Confidentiality of Alcohol and Drug Abuse Patient Records regulations: The Federal rules restrict any use of the information to criminally investigate or prosecute any alcohol or drug abuse patient.[facility]In the event this information is protected by the Federal Confidentiality of Alcohol and Drug Abuse Patient Records regulations: The Federal rules restrict any use of the information to criminally investigate or prosecute any alcohol or drug abuse patient.[facility]In the event this information is protected by the Federal Confidentiality of Alcohol and Drug Abuse Patient Records regulations: The Federal rules restrict any use of the information to criminally investigate or prosecute any alcohol or drug abuse patient.[facility]In the event this information is protected by the Federal Confidentiality of Alcohol and Drug Abuse Patient Records regulations: The Federal rules restrict any use of the information to criminally investigate or prosecute any alcohol or drug abuse patient.[facility]In the event this information is protected by the Federal Confidentiality of Alcohol and Drug Abuse Patient Records regulations: The Federal rules restrict any use of the information to criminally investigate or prosecute any alcohol or drug abuse patient.[facility]In the event this information is protected by the Federal Confidentiality of Alcohol and Drug Abuse Patient Records regulations: The Federal rules restrict any use of the information to criminally investigate or prosecute any alcohol or drug abuse patient.[facility]In the event this information is protected by the Federal Confidentiality of Alcohol and Drug Abuse Patient Records regulations: The Federal rules restrict any use of the information to criminally investigate or prosecute any alcohol or drug abuse patient.[facility]In the event this information is protected by the Federal Confidentiality of Alcohol and Drug Abuse Patient Records regulations: The Federal rules restrict any use of the information to criminally investigate or prosecute any alcohol or drug abuse patient.[facility]In the event this information is protected by the Federal Confidentiality of Alcohol and Drug Abuse Patient Records regulations: The Federal rules restrict any use of the information to criminally investigate or prosecute any alcohol or drug abuse patient.[facility]In the event this information is protected by the Federal Confidentiality of Alcohol and Drug Abuse Patient Records regulations: The Federal rules restrict any use of the information to criminally investigate or prosecute any alcohol or drug abuse patient.[facility]In the event this information is protected by the Federal Confidentiality of Alcohol and Drug Abuse Patient Records regulations: The Federal rules restrict any use of the information to criminally investigate or prosecute any alcohol or drug abuse patient.[facility]In the event this information is protected by the Federal Confidentiality of Alcohol and Drug Abuse Patient Records regulations: The Federal rules restrict any use of the information to criminally investigate or prosecute any alcohol or drug abuse patient.[facility]In the event this information is protected by the Federal Confidentiality of Alcohol and Drug Abuse Patient Records regulations: The Federal rules restrict any use of the information to criminally investigate or prosecute any alcohol or drug abuse patient.[facility]In the event this information is protected by the Federal Confidentiality of Alcohol and Drug Abuse Patient Records regulations: The Federal rules restrict any use of the information to criminally investigate or prosecute any alcohol or drug abuse patient.[facility]In the event this information is protected by the Federal Confidentiality of Alcohol and Drug Abuse Patient Records regulations: The Federal rules restrict any use of the information to criminally investigate or prosecute any alcohol or drug abuse patient.[facility]In the event this information is protected by the Federal Confidentiality of Alcohol and Drug Abuse Patient Records regulations: The Federal rules restrict any use of the information to criminally investigate or prosecute any alcohol or drug abuse patient.[facility]In the event this information is protected by the Federal Confidentiality of Alcohol and Drug Abuse Patient Records regulations: The Federal rules restrict any use of the information to criminally investigate or prosecute any alcohol or drug abuse patient.[facility]In the event this information is protected by the Federal Confidentiality of Alcohol and Drug Abuse Patient Records regulations: The Federal rules restrict any use of the information to criminally investigate or prosecute any alcohol or drug abuse patient.[facility]In the event this information is protected by the Federal Confidentiality of Alcohol and Drug Abuse Patient Records regulations: The Federal rules restrict any use of the information to criminally investigate or prosecute any alcohol or drug abuse patient.[facility]In the event this information is protected by the Federal Confidentiality of Alcohol and Drug Abuse Patient Records regulations: The Federal rules restrict any use of the information to criminally investigate or prosecute any alcohol or drug abuse patient.[facility]In the event this information is protected by the Federal Confidentiality of Alcohol and Drug Abuse Patient Records regulations: The Federal rules restrict any use of the information to criminally investigate or prosecute any alcohol or drug abuse patient.[facility]In the event this information is protected by the Federal Confidentiality of Alcohol and Drug Abuse Patient Records regulations: The Federal rules restrict any use of the information to criminally investigate or prosecute any alcohol or drug abuse patient.[facility]In the event this information is protected by the Federal Confidentiality of Alcohol and Drug Abuse Patient Records regulations: The Federal rules restrict any use of the information to criminally investigate or prosecute any alcohol or drug abuse patient.[facility]In the event this information is protected by the Federal Confidentiality of Alcohol and Drug Abuse Patient Records regulations: The Federal rules restrict any use of the information to criminally investigate or prosecute any alcohol or drug abuse patient.[facility]In the event this information is protected by the Federal Confidentiality of Alcohol and Drug Abuse Patient Records regulations: The Federal rules restrict any use of the information to criminally investigate or prosecute any alcohol or drug abuse patient.[facility]In the event this information is protected by the Federal Confidentiality of Alcohol and Drug Abuse Patient Records regulations: The Federal rules restrict any use of the information to criminally investigate or prosecute any alcohol or drug abuse patient.[facility]In the event this information is protected by the Federal Confidentiality of Alcohol and Drug Abuse Patient Records regulations: The Federal rules restrict any use of the information to criminally investigate or prosecute any alcohol or drug abuse patient.[facility]In the event this information is protected by the Federal Confidentiality of Alcohol and Drug Abuse Patient Records regulations: The Federal rules restrict any use of the information to criminally investigate or prosecute any alcohol or drug abuse patient.[facility]In the event this information is protected by the Federal Confidentiality of Alcohol and Drug Abuse Patient Records regulations: The Federal rules restrict any use of the information to criminally investigate or prosecute any alcohol or drug abuse patient.[facility]In the event this information is protected by the Federal Confidentiality of Alcohol and Drug Abuse Patient Records regulations: The Federal rules restrict any use of the information to criminally investigate or prosecute any alcohol or drug abuse patient.[facility]In the event this information is protected by the Federal Confidentiality of Alcohol and Drug Abuse Patient Records regulations: The Federal rules restrict any use of the information to criminally investigate or prosecute any alcohol or drug abuse patient.[facility]In the event this information is protected by the Federal Confidentiality of Alcohol and Drug Abuse Patient Records regulations: The Federal rules restrict any use of the information to criminally investigate or prosecute any alcohol or drug abuse patient.[facility]In the event this information is protected by the Federal Confidentiality of Alcohol and Drug Abuse Patient Records regulations: The Federal rules restrict any use of the information to criminally investigate or prosecute any alcohol or drug abuse patient.[facility]In the event this information is protected by the Federal Confidentiality of Alcohol and Drug Abuse Patient Records regulations: The Federal rules restrict any use of the information to criminally investigate or prosecute any alcohol or drug abuse patient.[facility]In the event this information is protected by the Federal Confidentiality of Alcohol and Drug Abuse Patient Records regulations: The Federal rules restrict any use of the information to criminally investigate or prosecute any alcohol or drug abuse patient.[facility]In the event this information is protected by the Federal Confidentiality of Alcohol and Drug Abuse Patient Records regulations: The Federal rules restrict any use of the information to criminally investigate or prosecute any alcohol or drug abuse patient.[facility]In the event this information is protected by the Federal Confidentiality of Alcohol and Drug Abuse Patient Records regulations: The Federal rules restrict any use of the information to criminally investigate or prosecute any alcohol or drug abuse patient.[facility]In the event this information is protected by the Federal Confidentiality of Alcohol and Drug Abuse Patient Records regulations: The Federal rules restrict any use of the information to criminally investigate or prosecute any alcohol or drug abuse patient.[facility]In the event this information is protected by the Federal Confidentiality of Alcohol and Drug Abuse Patient Records regulations: The Federal rules restrict any use of the information to criminally investigate or prosecute any alcohol or drug abuse patient.[facility]In the event this information is protected by the Federal Confidentiality of Alcohol and Drug Abuse Patient Records regulations: The Federal rules restrict any use of the information to criminally investigate or prosecute any alcohol or drug abuse patient.[facility]In the event this information is protected by the Federal Confidentiality of Alcohol and Drug Abuse Patient Records regulations: The Federal rules restrict any use of the information to criminally investigate or prosecute any alcohol or drug abuse patient.[facility]In the event this information is protected by the Federal Confidentiality of Alcohol and Drug Abuse Patient Records regulations: The Federal rules restrict any use of the information to criminally investigate or prosecute any alcohol or drug abuse patient.[facility]In the event this information is protected by the Federal Confidentiality of Alcohol and Drug Abuse Patient Records regulations: The Federal rules restrict any use of the information to criminally investigate or prosecute any alcohol or drug abuse patient.[facility]In the event this information is protected by the Federal Confidentiality of Alcohol and Drug Abuse Patient Records regulations: The Federal rules restrict any use of the information to criminally investigate or prosecute any alcohol or drug abuse patient.[facility]In the event this information is protected by the Federal Confidentiality of Alcohol and Drug Abuse Patient Records regulations: The Federal rules restrict any use of the information to criminally investigate or prosecute any alcohol or drug abuse patient.[facility]In the event this information is protected by the Federal Confidentiality of Alcohol and Drug Abuse Patient Records regulations: The Federal rules restrict any use of the information to criminally investigate or prosecute any alcohol or drug abuse patient.[facility]In the event this information is protected by the Federal Confidentiality of Alcohol and Drug Abuse Patient Records regulations: The Federal rules restrict any use of the information to criminally investigate or prosecute any alcohol or drug abuse patient.[facility]In the event this information is protected by the Federal Confidentiality of Alcohol and Drug Abuse Patient Records regulations: The Federal rules restrict any use of the information to criminally investigate or prosecute any alcohol or drug abuse patient.[facility]In the event this information is protected by the Federal Confidentiality of Alcohol and Drug Abuse Patient Records regulations: The Federal rules restrict any use of the information to criminally investigate or prosecute any alcohol or drug abuse patient.[facility]In the event this information is protected by the Federal Confidentiality of Alcohol and Drug Abuse Patient Records regulations: The Federal rules restrict any use of the information to criminally investigate or prosecute any alcohol or drug abuse patient.[facility]In the event this information is protected by the Federal Confidentiality of Alcohol and Drug Abuse Patient Records regulations: The Federal rules restrict any use of the information to criminally investigate or prosecute any alcohol or drug abuse patient.[facility]In the event this information is protected by the Federal Confidentiality of Alcohol and Drug Abuse Patient Records regulations: The Federal rules restrict any use of the information to criminally investigate or prosecute any alcohol or drug abuse patient.[facility]In the event this information is protected by the Federal Confidentiality of Alcohol and Drug Abuse Patient Records regulations: The Federal rules restrict any use of the information to criminally investigate or prosecute any alcohol or drug abuse patient.[facility]In the event this information is protected by the Federal Confidentiality of Alcohol and Drug Abuse Patient Records regulations: The Federal rules restrict any use of the information to criminally investigate or prosecute any alcohol or drug abuse patient.[facility]In the event this information is protected by the Federal Confidentiality of Alcohol and Drug Abuse Patient Records regulations: The Federal rules restrict any use of the information to criminally investigate or prosecute any alcohol or drug abuse patient.[facility]In the event this information is protected by the Federal Confidentiality of Alcohol and Drug Abuse Patient Records regulations: The Federal rules restrict any use of the information to criminally investigate or prosecute any alcohol or drug abuse patient.[facility]In the event this information is protected by the Federal Confidentiality of Alcohol and Drug Abuse Patient Records regulations: The Federal rules restrict any use of the information to criminally investigate or prosecute any alcohol or drug abuse patient.[facility]In the event this information is protected by the Federal Confidentiality of Alcohol and Drug Abuse Patient Records regulations: The Federal rules restrict any use of the information to criminally investigate or prosecute any alcohol or drug abuse patient.[facility]In the event this information is protected by the Federal Confidentiality of Alcohol and Drug Abuse Patient Records regulations: The Federal rules restrict any use of the information to criminally investigate or prosecute any alcohol or drug abuse patient.[facility]In the event this information is protected by the Federal Confidentiality of Alcohol and Drug Abuse Patient Records regulations: The Federal rules restrict any use of the information to criminally investigate or prosecute any alcohol or drug abuse patient.[facility]In the event this information is protected by the Federal Confidentiality of Alcohol and Drug Abuse Patient Records regulations: The Federal rules restrict any use of the information to criminally investigate or prosecute any alcohol or drug abuse patient.[facility]In the event this information is protected by the Federal Confidentiality of Alcohol and Drug Abuse Patient Records regulations: The Federal rules restrict any use of the information to criminally investigate or prosecute any alcohol or drug abuse patient.[facility]In the event this information is protected by the Federal Confidentiality of Alcohol and Drug Abuse Patient Records regulations: The Federal rules restrict any use of the information to criminally investigate or prosecute any alcohol or drug abuse patient.[facility]In the event this information is protected by the Federal Confidentiality of Alcohol and Drug Abuse Patient Records regulations: The Federal rules restrict any use of the information to criminally investigate or prosecute any alcohol or drug abuse patient.[facility]In the event this information is protected by the Federal Confidentiality of Alcohol and Drug Abuse Patient Records regulations: The Federal rules restrict any use of the information to criminally investigate or prosecute any alcohol or drug abuse patient.[facility]In the event this information is protected by the Federal Confidentiality of Alcohol and Drug Abuse Patient Records regulations: The Federal rules restrict any use of the information to criminally investigate or prosecute any alcohol or drug abuse patient.[facility]In the event this information is protected by the Federal Confidentiality of Alcohol and Drug Abuse Patient Records regulations: The Federal rules restrict any use of the information to criminally investigate or prosecute any alcohol or drug abuse patient.[facility]In the event this information is protected by the Federal Confidentiality of Alcohol and Drug Abuse Patient Records regulations: The Federal rules restrict any use of the information to criminally investigate or prosecute any alcohol or drug abuse patient.[facility]In the event this information is protected by the Federal Confidentiality of Alcohol and Drug Abuse Patient Records regulations: The Federal rules restrict any use of the information to criminally investigate or prosecute any alcohol or drug abuse patient.[facility]In the event this information is protected by the Federal Confidentiality of Alcohol and Drug Abuse Patient Records regulations: The Federal rules restrict any use of the information to criminally investigate or prosecute any alcohol or drug abuse patient.[facility]In the event this information is protected by the Federal Confidentiality of Alcohol and Drug Abuse Patient Records regulations: The Federal rules restrict any use of the information to criminally investigate or prosecute any alcohol or drug abuse patient.[facility]In the event this information is protected by the Federal Confidentiality of Alcohol and Drug Abuse Patient Records regulations: The Federal rules restrict any use of the information to criminally investigate or prosecute any alcohol or drug abuse patient.[facility]In the event this information is protected by the Federal Confidentiality of Alcohol and Drug Abuse Patient Records regulations: The Federal rules restrict any use of the information to criminally investigate or prosecute any alcohol or drug abuse patient.[facility]In the event this information is protected by the Federal Confidentiality of Alcohol and Drug Abuse Patient Records regulations: The Federal rules restrict any use of the information to criminally investigate or prosecute any alcohol or drug abuse patient.[facility]In the event this information is protected by the Federal Confidentiality of Alcohol and Drug Abuse Patient Records regulations: The Federal rules restrict any use of the information to criminally investigate or prosecute any alcohol or drug abuse patient.[facility]In the event this information is protected by the Federal Confidentiality of Alcohol and Drug Abuse Patient Records regulations: The Federal rules restrict any use of the information to criminally investigate or prosecute any alcohol or drug abuse patient.[facility]In the event this information is protected by the Federal Confidentiality of Alcohol and Drug Abuse Patient Records regulations: The Federal rules restrict any use of the information to criminally investigate or prosecute any alcohol or drug abuse patient.[facility]In the event this information is protected by the Federal Confidentiality of Alcohol and Drug Abuse Patient Records regulations: The Federal rules restrict any use of the information to criminally investigate or prosecute any alcohol or drug abuse patient.[facility]In the event this information is protected by the Federal Confidentiality of Alcohol and Drug Abuse Patient Records regulations: The Federal rules restrict any use of the information to criminally investigate or prosecute any alcohol or drug abuse patient.[facility]In the event this information is protected by the Federal Confidentiality of Alcohol and Drug Abuse Patient Records regulations: The Federal rules restrict any use of the information to criminally investigate or prosecute any alcohol or drug abuse patient.[facility]In the event this information is protected by the Federal Confidentiality of Alcohol and Drug Abuse Patient Records regulations: The Federal rules restrict any use of the information to criminally investigate or prosecute any alcohol or drug abuse patient.[facility]In the event this information is protected by the Federal Confidentiality of Alcohol and Drug Abuse Patient Records regulations: The Federal rules restrict any use of the information to criminally investigate or prosecute any alcohol or drug abuse patient.[facility]In the event this information is protected by the Federal Confidentiality of Alcohol and Drug Abuse Patient Records regulations: The Federal rules restrict any use of the information to criminally investigate or prosecute any alcohol or drug abuse patient.[facility]In the event this information is protected by the Federal Confidentiality of Alcohol and Drug Abuse Patient Records regulations: The Federal rules restrict any use of the information to criminally investigate or prosecute any alcohol or drug abuse patient.[facility]In the event this information is protected by the Federal Confidentiality of Alcohol and Drug Abuse Patient Records regulations: The Federal rules restrict any use of the information to criminally investigate or prosecute any alcohol or drug abuse patient.[facility]In the event this information is protected by the Federal Confidentiality of Alcohol and Drug Abuse Patient Records regulations: The Federal rules restrict any use of the information to criminally investigate or prosecute any alcohol or drug abuse patient.[facility]In the event this information is protected by the Federal Confidentiality of Alcohol and Drug Abuse Patient Records regulations: The Federal rules restrict any use of the information to criminally investigate or prosecute any alcohol or drug abuse patient.[facility]In the event this information is protected by the Federal Confidentiality of Alcohol and Drug Abuse Patient Records regulations: The Federal rules restrict any use of the information to criminally investigate or prosecute any alcohol or drug abuse patient.[facility]In the event this information is protected by the Federal Confidentiality of Alcohol and Drug Abuse Patient Records regulations: The Federal rules restrict any use of the information to criminally investigate or prosecute any alcohol or drug abuse patient.[facility]In the event this information is protected by the Federal Confidentiality of Alcohol and Drug Abuse Patient Records regulations: The Federal rules restrict any use of the information to criminally investigate or prosecute any alcohol or drug abuse patient.[facility]In the event this information is protected by the Federal Confidentiality of Alcohol and Drug Abuse Patient Records regulations: The Federal rules restrict any use of the information to criminally investigate or prosecute any alcohol or drug abuse patient.[facility]In the event this information is protected by the Federal Confidentiality of Alcohol and Drug Abuse Patient Records regulations: The Federal rules restrict any use of the information to criminally investigate or prosecute any alcohol or drug abuse patient.[facility]In the event this information is protected by the Federal Confidentiality of Alcohol and Drug Abuse Patient Records regulations: The Federal rules restrict any use of the information to criminally investigate or prosecute any alcohol or drug abuse patient.[facility]In the event this information is protected by the Federal Confidentiality of Alcohol and Drug Abuse Patient Records regulations: The Federal rules restrict any use of the information to criminally investigate or prosecute any alcohol or drug abuse patient.[facility]In the event this information is protected by the Federal Confidentiality of Alcohol and Drug Abuse Patient Records regulations: The Federal rules restrict any use of the information to criminally investigate or prosecute any alcohol or drug abuse patient.[facility]In the event this information is protected by the Federal Confidentiality of Alcohol and Drug Abuse Patient Records regulations: The Federal rules restrict any use of the information to criminally investigate or prosecute any alcohol or drug abuse patient.[facility]In the event this information is protected by the Federal Confidentiality of Alcohol and Drug Abuse Patient Records regulations: The Federal rules restrict any use of the information to criminally investigate or prosecute any alcohol or drug abuse patient.[facility]In the event this information is protected by the Federal Confidentiality of Alcohol and Drug Abuse Patient Records regulations: The Federal rules restrict any use of the information to criminally investigate or prosecute any alcohol or drug abuse patient.[facility]In the event this information is protected by the Federal Confidentiality of Alcohol and Drug Abuse Patient Records regulations: The Federal rules restrict any use of the information to criminally investigate or prosecute any alcohol or drug abuse patient.[facility]In the event this information is protected by the Federal Confidentiality of Alcohol and Drug Abuse Patient Records regulations: The Federal rules restrict any use of the information to criminally investigate or prosecute any alcohol or drug abuse patient.[facility]In the event this information is protected by the Federal Confidentiality of Alcohol and Drug Abuse Patient Records regulations: The Federal rules restrict any use of the information to criminally investigate or prosecute any alcohol or drug abuse patient.[facility]In the event this information is protected by the Federal Confidentiality of Alcohol and Drug Abuse Patient Records regulations: The Federal rules restrict any use of the information to criminally investigate or prosecute any alcohol or drug abuse patient.[facility]In the event this information is protected by the Federal Confidentiality of Alcohol and Drug Abuse Patient Records regulations: The Federal rules restrict any use of the information to criminally investigate or prosecute any alcohol or drug abuse patient.[facility]In the event this information is protected by the Federal Confidentiality of Alcohol and Drug Abuse Patient Records regulations: The Federal rules restrict any use of the information to criminally investigate or prosecute any alcohol or drug abuse patient.[facility]In the event this information is protected by the Federal Confidentiality of Alcohol and Drug Abuse Patient Records regulations: The Federal rules restrict any use of the information to criminally investigate or prosecute any alcohol or drug abuse patient.[facility] HospitalIn the event this information is protected by the Federal Confidentiality of Alcohol and Drug Abuse Patient Records regulations: The Federal rules restrict any use of the information to criminally investigate or prosecute any alcohol or drug abuse patient.[facility] HospitalIn the event this information is protected by the Federal Confidentiality of Alcohol and Drug Abuse Patient Records regulations: The Federal rules restrict any use of the information to criminally investigate or prosecute any alcohol or drug abuse patient.[facility] HospitalIn the event this information is protected by the Federal Confidentiality of Alcohol and Drug Abuse Patient Records regulations: The Federal rules restrict any use of the information to criminally investigate or prosecute any alcohol or drug abuse patient.[facility] HospitalIn the event this information is protected by the Federal Confidentiality of Alcohol and Drug Abuse Patient Records regulations: The Federal rules restrict any use of the information to criminally investigate or prosecute any alcohol or drug abuse patient.[facility] HospitalIn the event this information is protected by the Federal Confidentiality of Alcohol and Drug Abuse Patient Records regulations: The Federal rules restrict any use of the information to criminally investigate or prosecute any alcohol or drug abuse patient.[facility] HospitalIn the event this information is protected by the Federal Confidentiality of Alcohol and Drug Abuse Patient Records regulations: The Federal rules restrict any use of the information to criminally investigate or prosecute any alcohol or drug abuse patient.[facility] HospitalIn the event this information is protected by the Federal Confidentiality of Alcohol and Drug Abuse Patient Records regulations: The Federal rules restrict any use of the information to criminally investigate or prosecute any alcohol or drug abuse patient.[facility] HospitalIn the event this information is protected by the Federal Confidentiality of Alcohol and Drug Abuse Patient Records regulations: The Federal rules restrict any use of the information to criminally investigate or prosecute any alcohol or drug abuse patient.[facility] HospitalIn the event this information is protected by the Federal Confidentiality of Alcohol and Drug Abuse Patient Records regulations: The Federal rules restrict any use of the information to criminally investigate or prosecute any alcohol or drug abuse patient.[facility] HospitalIn the event this information is protected by the Federal Confidentiality of Alcohol and Drug Abuse Patient Records regulations: The Federal rules restrict any use of the information to criminally investigate or prosecute any alcohol or drug abuse patient.[facility] HospitalIn the event this information is protected by the Federal Confidentiality of Alcohol and Drug Abuse Patient Records regulations: The Federal rules restrict any use of the information to criminally investigate or prosecute any alcohol or drug abuse patient.[facility] HospitalIn the event this information is protected by the Federal Confidentiality of Alcohol and Drug Abuse Patient Records regulations: The Federal rules restrict any use of the information to criminally investigate or prosecute any alcohol or drug abuse patient.[facility] HospitalIn the event this information is protected by the Federal Confidentiality of Alcohol and Drug Abuse Patient Records regulations: The Federal rules restrict any use of the information to criminally investigate or prosecute any alcohol or drug abuse patient.[facility] HospitalIn the event this information is protected by the Federal Confidentiality of Alcohol and Drug Abuse Patient Records regulations: The Federal rules restrict any use of the information to criminally investigate or prosecute any alcohol or drug abuse patient.[facility] HospitalIn the event this information is protected by the Federal Confidentiality of Alcohol and Drug Abuse Patient Records regulations: The Federal rules restrict any use of the information to criminally investigate or prosecute any alcohol or drug abuse patient.[facility] HospitalIn the event this information is protected by the Federal Confidentiality of Alcohol and Drug Abuse Patient Records regulations: The Federal rules restrict any use of the information to criminally investigate or prosecute any alcohol or drug abuse patient.[facility] HospitalIn the event this information is protected by the Federal Confidentiality of Alcohol and Drug Abuse Patient Records regulations: The Federal rules restrict any use of the information to criminally investigate or prosecute any alcohol or drug abuse patient.[facility] HospitalIn the event this information is protected by the Federal Confidentiality of Alcohol and Drug Abuse Patient Records regulations: The Federal rules restrict any use of the information to criminally investigate or prosecute any alcohol or drug abuse patient.[facility] HospitalIn the event this information is protected by the Federal Confidentiality of Alcohol and Drug Abuse Patient Records regulations: The Federal rules restrict any use of the information to criminally investigate or prosecute any alcohol or drug abuse patient.[facility] HospitalIn the event this information is protected by the Federal Confidentiality of Alcohol and Drug Abuse Patient Records regulations: The Federal rules restrict any use of the information to criminally investigate or prosecute any alcohol or drug abuse patient.[facility] HospitalIn the event this information is protected by the Federal Confidentiality of Alcohol and Drug Abuse Patient Records regulations: The Federal rules restrict any use of the information to criminally investigate or prosecute any alcohol or drug abuse patient.[facility] HospitalIn the event this information is protected by the Federal Confidentiality of Alcohol and Drug Abuse Patient Records regulations: The Federal rules restrict any use of the information to criminally investigate or prosecute any alcohol or drug abuse patient.[facility] HospitalIn the event this information is protected by the Federal Confidentiality of Alcohol and Drug Abuse Patient Records regulations: The Federal rules restrict any use of the information to criminally investigate or prosecute any alcohol or drug abuse patient.[facility] HospitalIn the event this information is protected by the Federal Confidentiality of Alcohol and Drug Abuse Patient Records regulations: The Federal rules restrict any use of the information to criminally investigate or prosecute any alcohol or drug abuse patient.[facility] HospitalIn the event this information is protected by the Federal Confidentiality of Alcohol and Drug Abuse Patient Records regulations: The Federal rules restrict any use of the information to criminally investigate or prosecute any alcohol or drug abuse patient.[facility] HospitalIn the event this information is protected by the Federal Confidentiality of Alcohol and Drug Abuse Patient Records regulations: The Federal rules restrict any use of the information to criminally investigate or prosecute any alcohol or drug abuse patient.[facility] HospitalIn the event this information is protected by the Federal Confidentiality of Alcohol and Drug Abuse Patient Records regulations: The Federal rules restrict any use of the information to criminally investigate or prosecute any alcohol or drug abuse patient.[facility] HospitalIn the event this information is protected by the Federal Confidentiality of Alcohol and Drug Abuse Patient Records regulations: The Federal rules restrict any use of the information to criminally investigate or prosecute any alcohol or drug abuse patient.[facility] HospitalIn the event this information is protected by the Federal Confidentiality of Alcohol and Drug Abuse Patient Records regulations: The Federal rules restrict any use of the information to criminally investigate or prosecute any alcohol or drug abuse patient.[facility] HospitalIn the event this information is protected by the Federal Confidentiality of Alcohol and Drug Abuse Patient Records regulations: The Federal rules restrict any use of the information to criminally investigate or prosecute any alcohol or drug abuse patient.[facility] HospitalIn the event this information is protected by the Federal Confidentiality of Alcohol and Drug Abuse Patient Records regulations: The Federal rules restrict any use of the information to criminally investigate or prosecute any alcohol or drug abuse patient.[facility] HospitalIn the event this information is protected by the Federal Confidentiality of Alcohol and Drug Abuse Patient Records regulations: The Federal rules restrict any use of the information to criminally investigate or prosecute any alcohol or drug abuse patient.[facility] HospitalIn the event this information is protected by the Federal Confidentiality of Alcohol and Drug Abuse Patient Records regulations: The Federal rules restrict any use of the information to criminally investigate or prosecute any alcohol or drug abuse patient.[facility]In the event this information is protected by the Federal Confidentiality of Alcohol and Drug Abuse Patient Records regulations: The Federal rules restrict any use of the information to criminally investigate or prosecute any alcohol or drug abuse patient.[facility] HospitalIn the event this information is protected by the Federal Confidentiality of Alcohol and Drug Abuse Patient Records regulations: The Federal rules restrict any use of the information to criminally investigate or prosecute any alcohol or drug abuse patient.[facility] HospitalIn the event this information is protected by the Federal Confidentiality of Alcohol and Drug Abuse Patient Records regulations: The Federal rules restrict any use of the information to criminally investigate or prosecute any alcohol or drug abuse patient.[facility] HospitalIn the event this information is protected by the Federal Confidentiality of Alcohol and Drug Abuse Patient Records regulations: The Federal rules restrict any use of the information to criminally investigate or prosecute any alcohol or drug abuse patient.[facility] HospitalIn the event this information is protected by the Federal Confidentiality of Alcohol and Drug Abuse Patient Records regulations: The Federal rules restrict any use of the information to criminally investigate or prosecute any alcohol or drug abuse patient.[facility] HospitalIn the event this information is protected by the Federal Confidentiality of Alcohol and Drug Abuse Patient Records regulations: The Federal rules restrict any use of the information to criminally investigate or prosecute any alcohol or drug abuse patient.[facility] HospitalIn the event this information is protected by the Federal Confidentiality of Alcohol and Drug Abuse Patient Records regulations: The Federal rules restrict any use of the information to criminally investigate or prosecute any alcohol or drug abuse patient.[facility] HospitalIn the event this information is protected by the Federal Confidentiality of Alcohol and Drug Abuse Patient Records regulations: The Federal rules restrict any use of the information to criminally investigate or prosecute any alcohol or drug abuse patient.[facility] HospitalIn the event this information is protected by the Federal Confidentiality of Alcohol and Drug Abuse Patient Records regulations: The Federal rules restrict any use of the information to criminally investigate or prosecute any alcohol or drug abuse patient.[facility] HospitalIn the event this information is protected by the Federal Confidentiality of Alcohol and Drug Abuse Patient Records regulations: The Federal rules restrict any use of the information to criminally investigate or prosecute any alcohol or drug abuse patient.[facility] HospitalIn the event this information is protected by the Federal Confidentiality of Alcohol and Drug Abuse Patient Records regulations: The Federal rules restrict any use of the information to criminally investigate or prosecute any alcohol or drug abuse patient.[facility] HospitalIn the event this information is protected by the Federal Confidentiality of Alcohol and Drug Abuse Patient Records regulations: The Federal rules restrict any use of the information to criminally investigate or prosecute any alcohol or drug abuse patient.[facility] HospitalIn the event this information is protected by the Federal Confidentiality of Alcohol and Drug Abuse Patient Records regulations: The Federal rules restrict any use of the information to criminally investigate or prosecute any alcohol or drug abuse patient.[facility] HospitalIn the event this information is protected by the Federal Confidentiality of Alcohol and Drug Abuse Patient Records regulations: The Federal rules restrict any use of the information to criminally investigate or prosecute any alcohol or drug abuse patient.[facility] HospitalIn the event this information is protected by the Federal Confidentiality of Alcohol and Drug Abuse Patient Records regulations: The Federal rules restrict any use of the information to criminally investigate or prosecute any alcohol or drug abuse patient.[facility] HospitalIn the event this information is protected by the Federal Confidentiality of Alcohol and Drug Abuse Patient Records regulations: The Federal rules restrict any use of the information to criminally investigate or prosecute any alcohol or drug abuse patient.[facility] HospitalIn the event this information is protected by the Federal Confidentiality of Alcohol and Drug Abuse Patient Records regulations: The Federal rules restrict any use of the information to criminally investigate or prosecute any alcohol or drug abuse patient.[facility] HospitalIn the event this information is protected by the Federal Confidentiality of Alcohol and Drug Abuse Patient Records regulations: The Federal rules restrict any use of the information to criminally investigate or prosecute any alcohol or drug abuse patient.[facility] HospitalIn the event this information is protected by the Federal Confidentiality of Alcohol and Drug Abuse Patient Records regulations: The Federal rules restrict any use of the information to criminally investigate or prosecute any alcohol or drug abuse patient.[facility] HospitalIn the event this information is protected by the Federal Confidentiality of Alcohol and Drug Abuse Patient Records regulations: The Federal rules restrict any use of the information to criminally investigate or prosecute any alcohol or drug abuse patient.[facility] HospitalIn the event this information is protected by the Federal Confidentiality of Alcohol and Drug Abuse Patient Records regulations: The Federal rules restrict any use of the information to criminally investigate or prosecute any alcohol or drug abuse patient.[facility] HospitalIn the event this information is protected by the Federal Confidentiality of Alcohol and Drug Abuse Patient Records regulations: The Federal rules restrict any use of the information to criminally investigate or prosecute any alcohol or drug abuse patient.[facility]In the event this information is protected by the Federal Confidentiality of Alcohol and Drug Abuse Patient Records regulations: The Federal rules restrict any use of the information to criminally investigate or prosecute any alcohol or drug abuse patient.[facility] HospitalIn the event this information is protected by the Federal Confidentiality of Alcohol and Drug Abuse Patient Records regulations: The Federal rules restrict any use of the information to criminally investigate or prosecute any alcohol or drug abuse patient.[facility] Reason for Visit (unrecogniz ed section and content) Reason Comments Spirometry Specialty Diagnoses / Procedures Referred By Contac t Referred To Contact [facility] Diagnoses Cystic fibrosis with pulmonary manifestations (HCC) Procedures SPIROMETRY BASELINE ONLY SPMTRY W/VC EXPIRATORY CRISTINA W/WO MXML VOL VNTJ Alex Pinon MD [address] [place] [address] [id number] [place] [address] Referral ID Status Reason Start Date Expiration Date V isits Requested Visits Authorized [id number] Closed Auto-Generate d Referral 11/12/2023 12/11/2024 1 1 Reason Comments Recheck Specialty Diagnoses / Procedures Referred By Contac t Referred To Contact HOSP INPATIENT Diagnoses Cystic fibrosis exacerbation (HCC) Cystic fibrosis with pulmonary exacerbation (HCC) Procedures [facility] IP/OBS [facility] HIGH MDM 75 MINUTES H[facility] [id number] [place] [address] Referral ID Status Reason Start Date Expiration Date Visits Re quested Visits Authorized [id number] 1 1 Specialty Diagnoses / Procedures Referred By Contac t Referred To Contact Diagnoses Cystic fibrosis with pulmonary manifestations cf Procedures [facility] IP[facility]BS [facility] HIGH MDM 75 MINUTES IV Antibiotics Hosp [facility] [address] [place] [address] Referral ID Status Reason Start Date Expiration Date Visits Re quested Visits Authorized [id number] 1 1 Reason Comments New CF Referral Reason Comments Emesis Tachycardia Specialty Diagnoses / Procedures Referred By Contac t Referred To Contact [facility] Diagnoses Cystic fibrosis Intractable nausea and vomiting Acute [place] [address] Referral ID Status Reason Start Date Expiration Date Visits Re quested Visits Authorized [id number] 1 1 Reason Comments Cystic Fibrosis Specialty Diagnoses / Procedures Referred By Contac t Referred To Contact [facility] Diagnoses Cystic Fibrosis Procedures REFERRAL TO [facility] [place] NEW CYSTIC FIBROSIS She Pete DO [address] [place] [address] Respiratory [place] [address] [place] [address] Referral ID Status Reason Start Date Expiration Date Visits Requested Visits Authorized [id number] Pending Review Financial Clearance Required - [employer] 2022 10/15/2022 1 1 Reason Comments Coughing Up Blood Reason Comments CoPat Start Reason Comments CoPat Agency Reason Comments Outside Lab Results copat Specialty Diagnoses / Procedures Referred By Contac t Referred To Contact [facility] Diagnoses Cystic fibrosis (HCC) Procedures SPIROMETRY BASELINE ONLY SPMTRY W/VC EXPIRATORY CRISTINA W/WO MXML VOL VNTSally [place], ACCOUNTING REPRESENTATIVE.[employer] [id number] [place] [address] Referral ID Status Reason Start Date Expiration Date V isits Requested Visits Authorized [id number] Closed Auto-Generate d Referral 08/06/2022 09/05/2023 1 1 Reason Comments Follow Up Doing good Reason Comments CoPat Stop Reason Comments Medication Problem Specialty Diagnoses / Procedures Referred By Jennifer t Referred To Contact [facility] Diagnoses Cystic fibrosis with pulmonary manifestations (HCC) 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) Procedures SPIROMETRY BASELINE ONLY SPMTRY W/VC EXPIRATORY CRISTINA W/WO MXML VOL VNTJ She Pete, [place] [address] [place] [address] Referral ID Status Reason Start Date Expiration Date V isits Requested Visits Authorized [id number] Closed Auto-Generate d Referral 07/21/2022 08/20/2023 1 1 Reason Comments Follow Up Patient requesting r efill on Celexa Specialty Diagnoses / Procedures Referred By Jennifer newman Referred To Contact Pulmonary Disease / PULMONARY MEDICINE Diagnoses ESTABLISHED - CF Procedures RI EST CYSTIC FIBROSIS She Pete, [address] [place] [id number] She Pete, [place] [address] Referral ID Status Reason Start Date Expiration Date V isits Requested Visits Authorized [id number] Pending Review 09/11/2022 12/10/2022 1 1 Reason Onset Date Comments Refill Request 09/25/2022 Reason Comments Refill Request Reason Comments Appointment Referral ID Status Reason Start Date Expiration Date V isits Requested Visits Authorized [id number] Closed Auto-Generate d Referral 08/09/2022 09/08/2023 1 1 Reason Comments Outside Lab Results Referral ID Status Reason Start Date Expiration Date V isits Requested Visits Authorized [id number] Closed Auto-Generate d Referral 11/11/2022 12/11/2023 1 1 Reason Comments Extend CoPat 11/29 Reason Comments cystic fybrosis Specialty Diagnoses / Procedures Referred By Contac t Referred To Contact Pulmonary Disease / PULMONARY MEDICINE Diagnoses Cystic Fibrosis Procedures RI EST CYSTIC FIBROSIS- FOLLOW UP APPOINTMENT IN PERSON She Pete, DO [address] [place] [address] She Pete, [address] [place] [id number] Referral ID Status Reason Start Date Expiration Date V isits Requested Visits Authorized [id number] Pending Review 11/20/2022 02/18/2023 1 1 Reason Onset Date Comments Refill Request 11/20/2022 Reason Onset Date Comments Refill Request 11/20/2022 Reason Comments Results Specialty Diagnoses / Procedures Referred By Contac t Referred To Contact [facility] Diagnoses CF (cystic fibrosis) ([facility]) Procedures SPIROMETRY BASELINE ONLY SPMTRY W/VC EXPIRATORY CRISTINA W/WO MXML VOL VNTJ She Pete, [address] [place] [address] Respiratory [place] [address] [place] [id number] Referral ID Status Reason Start Date Expiration Date V isits Requested Visits Authorized [id number] Closed Auto-Generate d Referral 08/28/2022 09/27/2023 1 1 Reason Comments Follow Up CF, chest is still t ight Specialty Diagnoses / Procedures Referred By Contac t Referred To Contact Internal Medicine / PULMONARY MEDICINE Diagnoses Cystic Fibrosis Procedures RI EST CYSTIC FIBROSIS Jean Pierre Kilgore MD [address] [place] [address] Jean Pierre Kilgore MD [address] [place] [address] Referral ID Status Reason Start Date Expiration Date V isits Requested Visits Authorized [id number] Pending Review 12/04/2022 03/04/2023 1 1 Reason Comments Benefits Authorization Reason Comments Diabetes Reason Comments Insurance Authorization for 0.9% Sodium Chloride 1000 mlInfuse 1000 ml daily for 4 days Reason Comments Insurance Authorization for Vancomycin 7 50mg IV every 12 hours ,Meropenem 1.5gm IV every 8 hours ,Benadryl 50mg [id number] Reason Comments Insurance Authorization Copat extensions from 11/23/22-12/05/22 for Meropenem 1.5g q8h and vancomycin 0.75g q12h Reason Comments Follow Up Coughing up blood a week ago Specialty Diagnoses / Procedures Referred By Contac t Referred To Contact [facility] Diagnoses Cystic fibrosis with pulmonary manifestations (HCC) Procedures SPIROMETRY BASELINE ONLY SPMTRY W/VC EXPIRATORY CRISTINA W/WO MXML VOL VNTJ She Pete, [address] [place] [address] [facility] [address] [place] [address] Referral ID Status Reason Start Date Expiration Date V isits Requested Visits Authorized [id number] Closed Auto-Generate d Referral 03/03/2023 04/01/2024 1 [...] CF/est Procedures RI EST CYSTIC FIBROSIS She Pete DO [address] [place] [address] She Pete DO [address] [place] [address] Referral ID Status Reason Start Date Expiration Date V isits Requested Visits Authorized [id number] Pending Review 03/19/2023 06/17/2023 1 1 Reason Comments PICC Line Reason Comments Returning Patient's Call Specialty Diagnoses / Procedures Referred By Contac t Ref[facility] Diagnoses Cystic fibrosis (HCC) Procedures SPIROMETRY BASELINE ONLY SPMTRY W/VC EXPIRATORY CRISTINA W/WO MXML VOL She Granado, DO [address] [place] [address] [address] Referral ID Status Reason Start Date Expiration Date V isits Requested Visits Authorized [id number] Closed Auto-Generate d Referral 03/19/2023 04/17/2024 1 1 Reason Comments Recheck No concerns Specialty Diagnoses / Procedures Referred By Contac t Referred To Contact Internal Medicine / PULMONARY MEDICINE Diagnoses F/U Procedures RI EST CYSTIC FIBROSIS Jean Pierre Kilgore MD [address] [place] [address] Jean Pierre Kilgore MD [address] [facility] [address] [place] [address] Referral ID Status Reason Start Date Expiration Date V isits Requested Visits Authorized [id number] Pending Review 06/04/2023 09/02/2023 1 1 Specialty Diagnoses / Procedures Referred By Contac t Referred To Contact [facility] Diagnoses Cystic fibrosis with pulmonary manifestations (HCC) Cystic fibrosis with pulmonary exacerbation (HCC) Procedures SPIROMETRY BASELINE ONLY SPMTRY W/VC EXPIRATORY CRISTINA W/WO MXML VOL She Granado, DO [address] [place] [address] [address] Referral ID Status Reason Start Date Expiration Date V isits Requested Visits Authorized [id number] Closed Auto-Generate d Referral 11/20/2022 12/20/2023 1 1 Reason Comments Recheck 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 Reason [...] W/O & W/CONTRAST MATERIAL Mono Lan MD [address] [place] [address] Mr Imaging [facility] Referral ID Status Reason Start Date Expiration Date V isits Requested Visits Authorized [id number] Closed Auto-Generate d Referral 04/23/2024 06/22/2024 1 1 Reason Comments Recheck Reason Comments Liver Disease Reason Comments Refill Request Patient Update Specialty Diagnoses / Procedures Referred By Contac t Referred To Contact [facility] Diagnoses Cystic fibrosis with pulmonary manifestations (HCC) Procedures SPIROMETRY BASELINE ONLY SPMTRY W/VC EXPIRATORY CRISTINA W/WO MXML VOL Jean Pierre Chase MD [address] [facility] [address] [place] [address] [facility] [place] [address] [place] [address] Referral ID Status Reason Start Date Expiration Date V isits Requested Visits Authorized [id number] Closed Auto-Generate d Referral 05/05/2024 06/04/2025 1 1 Reason Comments Follow Up Phone Call 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 Reason Comments Medication Problem Vanco timing Reason Comments 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Reason Comments Critical Results Reason Comments Received Outside Medical Records Referral ID Status Reason Start Date Expiration Date V isits Requested Visits Authorized [id number] Closed Auto-Generate d Referral 09/02/2024 10/02/2025 1 1 Reason Onset Date Comments Refill Request 09/15/2024 Reason Comments Patient Update PICC Line Pulled at [facility] Referral ID Status Reason Start Date Expiration Date V isits Requested Visits Authorized [id number] Closed Auto-Generate d Referral 09/09/2024 10/09/2025 1 1 Reason Comments Abstract Referral ID Status Reason Start Date Expiration Date V isits Requested Visits Authorized [id number] Closed Auto-Generate d Referral 05/05/2024 06/04/2025 1 1 Reason Comments Sore Throat ST and fever x 1.5 w eeks Specialty Diagnoses / Procedures Referred By Contac t Referred [facility] Diagnoses Cystic fibrosis (HCC) Procedures SPIROMETRY BASELINE ONLY SPMTRY W/VC EXPIRATORY CRISTINA W/WO MXML VOL VNTJ Sally Schneider, ACCOUNTING REPRESENTATIVE.BUGGY LADLE TENDER [address] [place] [address] Phone: tel: fax: [facility] [place] [address] [place] [address] Referral ID Status Reason Start Date Expiration Date V isits Requested Visits Authorized [id number] Closed Auto-Generate d Referral 10/06/2024 11/05/2025 1 1 Reason Comments Follow Up Reason Comments Prior Authorization Reason Comments 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[facility]ly [facility], [facility]–1983 Reason Onset Date Comments Refill Request 04/07/2025 Care Teams (unrecognized sec tion and content) General Car Supervisor Yard Relationship Specialty Start Date End Date Stephie Ramirez, ACCOUNTING REPRESENTATIVE.BUGGY LADLE TENDER [address] [place], [place] [id number] Referring Endocrinology 09/19/21 General Car Supervisor Yard Relationship Specialty Start Date End Date Stephie Ramirez, ACCOUNTING REPRESENTATIVE.BUGGY LADLE TENDER [address] [place], [place] [id number] Referring Endocrinology 09/19/21 General Car Supervisor Yard Relationship Specialty Start Date End Date No Primary Care[place] [address] PCP - General Pediatrics 12/09/16 Jean Pierre Kilgore MD Attending Physician Internal Medicine 12/09/16 Orquidea [place] [address] Bench Worker Helper Social work 12/04/20 Orquidea Mckeon, [place] [address] Hospital Tray Service Worker Nutrition 08/01/21 Jasmyn Castañeda APRN-BUGGY [place] [address] Nurse Practitioner Nurse Practitioner 02/08/22 Maryam Boyer, [place] [address] Registered Nurse 02/08/22 Wihtley Hoff RN [facility] [place] [address] Registered Nurse 02/08/22 General Car Supervisor Yard Relationship Specialty Start Date End Date Stephie Ramirez, ACCOUNTING REPRESENTATIVE.BUGGY LADLE TENDER [address] [place] [address] Referring Endocrinology 09/19/21 General Car Supervisor Yard Relationship Specialty Start Date End Date Stephie Ramirez, ACCOUNTING REPRESENTATIVE.BUGGY LADLE TENDER [address] [place] [address] Referring Endocrinology 09/19/21 General Car Supervisor Yard Relationship Specialty Start Date End Date Stephie Ramirez, ACCOUNTING REPRESENTATIVE.BUGGY LADLE TENDER [address] [place] [address] Referring Endocrinology 09/19/21 General Car Supervisor Yard Relationship Specialty Start Date End Date Stephie Ramirez, ACCOUNTING REPRESENTATIVE.BUGGY LADLE TENDER [address] [place] [address] Referring Endocrinology 09/19/21 General Car Supervisor Yard Relationship Specialty Start Date End Date Stephie Ramirez, ACCOUNTING REPRESENTATIVE.BUGGY LADLE TENDER [address] [place] [address] Referring Endocrinology 09/19/21 General Car Supervisor Yard Relationship Specialty Start Date End Date Stephie Ramirez, ACCOUNTING REPRESENTATIVE.BUGGY LADLE TENDER [address] [place] [address] Referring Endocrinology 09/19/21 General Car Supervisor Yard Relationship Specialty Start Date End Date Stephie Ramirez, ACCOUNTING REPRESENTATIVE.BUGGY LADLE TENDER [address] [place] [address] Referring Endocrinology 09/19/21 General Car Supervisor Yard Relationship Specialty Start Date End Date Stephie Ramirez, ACCOUNTING REPRESENTATIVE.BUGGY LADLE TENDER [address] [place] [address] Referring Endocrinology 09/19/21 General Car Supervisor Yard Relationship Specialty Start Date End Date Stephie Ramirez, ACCOUNTING REPRESENTATIVE.BUGGY LADLE TENDER [address] [place] [address] Referring Endocrinology 09/19/21 General Car Supervisor Yard Relationship Specialty Start Date End Date Stephie Ramirez, ACCOUNTING REPRESENTATIVE.BUGGY LADLE TENDER [address] [place] [address] Referring Endocrinology 09/19/21 General Car Supervisor Yard Relationship Specialty Start Date End Date Stephie Ramirez, ACCOUNTING REPRESENTATIVE.BUGGY LADLE TENDER [address] [place] [address] Referring Endocrinology 09/19/21 General Car Supervisor Yard Relationship Specialty Start Date End Date Stephie Ramirez, ACCOUNTING REPRESENTATIVE.BUGGY LADLE TENDER [address] [place] [address] Referring Endocrinology 09/19/21 General Car Supervisor Yard Relationship Specialty Start Date End Date Stephie Ramirez, ACCOUNTING REPRESENTATIVE.BUGGY LADLE TENDER [address] [place] [address] Referring Endocrinology 09/19/21 General Car Supervisor Yard Relationship Specialty Start Date End Date Stephie Ramirez, ACCOUNTING REPRESENTATIVE.BUGGY LADLE TENDER [address] [place] [address] Referring Endocrinology 09/19/21 General Car Supervisor Yard Relationship Specialty Start Date End Date Stephie Ramirez, ACCOUNTING REPRESENTATIVE.BUGGY LADLE TENDER [address] [place] [address] Referring Endocrinology 09/19/21 General Car Supervisor Yard Relationship Specialty Start Date End Date Stephie Ramirez, ACCOUNTING REPRESENTATIVE.BUGGY LADLE TENDER [address] [place] [address] Referring Endocrinology 09/19/21 General Car Supervisor Yard Relationship Specialty Start Date End Date Stephie Ramirez, ACCOUNTING REPRESENTATIVE.BUGGY LADLE TENDER [address] [facility] [place] [address] Referring Endocrinology 09/19/21 General Car Supervisor Yard Relationship Specialty Start Date End Date Stephie Ramirez, ACCOUNTING REPRESENTATIVE.BUGGY LADLE TENDER [address] [facility] [place] [address] Referring Endocrinology 09/19/21 General Car Supervisor Yard Relationship Specialty Start Date End Date Stephie Ramirez, ACCOUNTING REPRESENTATIVE.BUGGY LADLE TENDER [address] [facility] [place] [address] Referring Endocrinology 09/19/21 General Car Supervisor Yard Relationship Specialty Start Date End Date Stephie Ramirez, ACCOUNTING REPRESENTATIVE.BUGGY LADLE TENDER [address] [facility] [place] [address] Referring Endocrinology 09/19/21 General Car Supervisor Yard Relationship Specialty Start Date End Date Stephie Ramirez, ACCOUNTING REPRESENTATIVE.BUGGY LADLE TENDER [address] [place] [address] Referring Endocrinology 09/19/21 General Car Supervisor Yard Relationship Specialty Start Date End Date Stephie Ramirez, ACCOUNTING REPRESENTATIVE.BUGGY LADLE TENDER [address] [facility] [place] [address] Referring Endocrinology 09/19/21 General Car Supervisor Yard Relationship Specialty Start Date End Date Stephie Ramirez, ACCOUNTING REPRESENTATIVE.BUGGY LADLE TENDER [address] [place] [address] Referring Endocrinology 09/19/21 General Car Supervisor Yard Relationship Specialty Start Date End Date Stephie Ramirez, ACCOUNTING REPRESENTATIVE.BUGGY LADLE TENDER [address] [place] [address] Referring Endocrinology 09/19/21 General Car Supervisor Yard Relationship Specialty Start Date End Date Stephie Ramirez, ACCOUNTING REPRESENTATIVE.BUGGY LADLE TENDER [address] [facility] [place] [address] Referring Endocrinology 09/19/21 General Car Supervisor Yard Relationship Specialty Start Date End Date Stephie Ramirez, ACCOUNTING REPRESENTATIVE.BUGGY LADLE TENDER [address] [place] [address] Referring Endocrinology 09/19/21 General Car Supervisor Yard Relationship Specialty Start Date End Date Stephie Ramirez, ACCOUNTING REPRESENTATIVE.BUGGY LADLE TENDER [address] [place] [address] Referring Endocrinology 09/19/21 General Car Supervisor Yard Relationship Specialty Start Date End Date Stephie Ramirez, ACCOUNTING REPRESENTATIVE.BUGGY LADLE TENDER [address] [place] [address] Referring Endocrinology 09/19/21 General Car Supervisor Yard Relationship Specialty Start Date End Date Stephie Ramirez, ACCOUNTING REPRESENTATIVE.BUGGY LADLE TENDER [address] [place] [address] Referring Endocrinology 09/19/21 General Car Supervisor Yard Relationship Specialty Start Date End Date Stephie Ramirez, ACCOUNTING REPRESENTATIVE.BUGGY LADLE TENDER [address] [place] [address] Referring Endocrinology 09/19/21 General Car Supervisor Yard Relationship Specialty Start Date End Date Stephie Ramirez, ACCOUNTING REPRESENTATIVE.BUGGY LADLE TENDER [address] [place] [address] Referring Endocrinology 09/19/21 General Car Supervisor Yard Relationship Specialty Start Date End Date Stephie Ramirez, ACCOUNTING REPRESENTATIVE.BUGGY LADLE TENDER [address] [place] [address] Referring Endocrinology 09/19/21 General Car Supervisor Yard Relationship Specialty Start Date End Date Stephie Ramirez, ACCOUNTING REPRESENTATIVE.BUGGY LADLE TENDER [address] [place] [address] Referring Endocrinology 09/19/21 General Car Supervisor Yard Relationship Specialty Start Date End Date Stephie Ramirez, ACCOUNTING REPRESENTATIVE.BUGGY LADLE TENDER [address] [place] [address] Referring Endocrinology 09/19/21 General Car Supervisor Yard Relationship Specialty Start Date End Date Stephie Ramirez, ACCOUNTING REPRESENTATIVE.BUGGY LADLE TENDER [address] [place] [address] Referring Endocrinology 09/19/21 General Car Supervisor Yard Relationship Specialty Start Date End Date Stephie Ramirez, ACCOUNTING REPRESENTATIVE.BUGGY LADLE TENDER [address] [place] [address] Referring Endocrinology 09/19/21 General Car Supervisor Yard Relationship Specialty Start Date End Date Stephie Ramirez, ACCOUNTING REPRESENTATIVE.BUGGY LADLE TENDER [address] [place] [address] Referring Endocrinology 09/19/21 General Car Supervisor Yard Relationship Specialty Start Date End Date Stephie Ramirez, ACCOUNTING REPRESENTATIVE.BUGGY LADLE TENDER [address] [facility] [place] [address] Referring Endocrinology 09/19/21 General Car Supervisor Yard Relationship Specialty Start Date End Date Stephie Ramirez, ACCOUNTING REPRESENTATIVE.BUGGY LADLE TENDER [address] [place] [address] Referring Endocrinology 09/19/21 General Car Supervisor Yard Relationship Specialty Start Date End Date Stephie Ramirez, ACCOUNTING REPRESENTATIVE.BUGGY LADLE TENDER [address] [place] [address] Referring Endocrinology 09/19/21 General Car Supervisor Yard Relationship Specialty Start Date End Date Stephie Ramirez, ACCOUNTING REPRESENTATIVE.BUGGY LADLE TENDER [address] [place] [address] Referring Endocrinology 09/19/21 General Car Supervisor Yard Relationship Specialty Start Date End Date Stephie Ramirez, ACCOUNTING REPRESENTATIVE.BUGGY LADLE TENDER [address] [place] [address] Referring Endocrinology 09/19/21 General Car Supervisor Yard Relationship Specialty Start Date End Date Stephie Ramirez, ACCOUNTING REPRESENTATIVE.BUGGY LADLE TENDER [address] [place] [address] Referring Endocrinology 09/19/21 General Car Supervisor Yard Relationship Specialty Start Date End Date Stephie Ramirez, ACCOUNTING REPRESENTATIVE.BUGGY LADLE TENDER [address] [place] [address] Referring Endocrinology 09/19/21 General Car Supervisor Yard Relationship Specialty Start Date End Date Stephie Ramirez, ACCOUNTING REPRESENTATIVE.BUGGY LADLE TENDER [address] [place] [address] Referring Endocrinology 09/19/21 General Car Supervisor Yard Relationship Specialty Start Date End Date Stephie Ramirez, ACCOUNTING REPRESENTATIVE.BUGGY LADLE TENDER [address] [place] [address] Referring Endocrinology 09/19/21 General Car Supervisor Yard Relationship Specialty Start Date End Date Stephie Ramirez, ACCOUNTING REPRESENTATIVE.BUGGY LADLE TENDER [address] [place] [address] Referring Endocrinology 09/19/21 General Car Supervisor Yard Relationship Specialty Start Date End Date Stephie Ramirez, ACCOUNTING REPRESENTATIVE.BUGGY LADLE TENDER [address] [place] [address] Referring Endocrinology 09/19/21 General Car Supervisor Yard Relationship Specialty Start Date End Date Stephie Ramirez, ACCOUNTING REPRESENTATIVE.BUGGY LADLE TENDER [address] [place] [address] Referring Endocrinology 09/19/21 General Car Supervisor Yard Relationship Specialty Start Date End Date Stephie Ramirez, ACCOUNTING REPRESENTATIVE.BUGGY LADLE TENDER [address] [place] [address] Referring Endocrinology 09/19/21 General Car Supervisor Yard Relationship Specialty Start Date End Date Stephie Ramirez, ACCOUNTING REPRESENTATIVE.BUGGY LADLE TENDER [address] [place] [address] Referring Endocrinology 09/19/21 General Car Supervisor Yard Relationship Specialty Start Date End Date Stephie Ramirez, ACCOUNTING REPRESENTATIVE.BUGGY LADLE TENDER [address] [place] [address] Referring Endocrinology 09/19/21 General Car Supervisor Yard Relationship Specialty Start Date End Date Stephie Ramirez, ACCOUNTING REPRESENTATIVE.BUGGY LADLE TENDER [address] [place] [address] Referring Endocrinology 09/19/21 General Car Supervisor Yard Relationship Specialty Start Date End Date Stephie Ramirez, ACCOUNTING REPRESENTATIVE.BUGGY LADLE TENDER [address] [place] [address] Referring Endocrinology 09/19/21 General Car Supervisor Yard Relationship Specialty Start Date End Date Stephie Ramirez, ACCOUNTING REPRESENTATIVE.BUGGY LADLE TENDER [address] [place] [address] Referring Endocrinology 09/19/21 General Car Supervisor Yard Relationship Specialty Start Date End Date Stephie Ramirez, ACCOUNTING REPRESENTATIVE.BUGGY LADLE TENDER [address] [place] [address] Referring Endocrinology 09/19/21 General Car Supervisor Yard Relationship Specialty Start Date End Date Stephie aRmirez, ACCOUNTING REPRESENTATIVE.BUGGY LADLE TENDER [address] [place] [address] Referring Endocrinology 09/19/21 General Car Supervisor Yard Relationship Specialty Start Date End Date Stephie Ramirez, ACCOUNTING REPRESENTATIVE.BUGGY LADLE TENDER [address] [place] [address] Referring Endocrinology 09/19/21 General Car Supervisor Yard Relationship Specialty Start Date End Date Stephie Ramirez, ACCOUNTING REPRESENTATIVE.BUGGY LADLE TENDER [address] [place] [address] Referring Endocrinology 09/19/21 General Car Supervisor Yard Relationship Specialty Start Date End Date Stephie Ramirez, ACCOUNTING REPRESENTATIVE.BUGGY LADLE TENDER [address] [place] [address] Referring Endocrinology 09/19/21 General Car Supervisor Yard Relationship Specialty Start Date End Date Stephei Ramirez, ACCOUNTING REPRESENTATIVE.BUGGY LADLE TENDER [address] [place] [address] Referring Endocrinology 09/19/21 General Car Supervisor Yard Relationship Specialty Start Date End Date Stephie Ramirez, ACCOUNTING REPRESENTATIVE.BUGGY LADLE TENDER [address] [place] [address] Referring Endocrinology 09/19/21 General Car Supervisor Yard Relationship Specialty Start Date End Date Stephie Ramirez, ACCOUNTING REPRESENTATIVE.BUGGY LADLE TENDER [address] [place] [address] Referring Endocrinology 09/19/21 General Car Supervisor Yard Relationship Specialty Start Date End Date Stephie Ramirez, ACCOUNTING REPRESENTATIVE.BUGGY LADLE TENDER [address] [place] [address] Referring Endocrinology 09/19/21 General Car Supervisor Yard Relationship Specialty Start Date End Date Stephie Ramriez, ACCOUNTING REPRESENTATIVE.BUGGY LADLE TENDER [address] [place] [address] Referring Endocrinology 09/19/21 General Car Supervisor Yard Relationship Specialty Start Date End Date Stephie Ramirez, ACCOUNTING REPRESENTATIVE.BUGGY LADLE TENDER [address] [place], [place] [address] Referring Endocrinology 09/19/21 General Car Supervisor Yard Relationship Specialty Start Date End Date Stephie Ramirez, ACCOUNTING REPRESENTATIVE.BUGGY LADLE TENDER [address] [place], [place] [address] Referring Endocrinology 09/19/21 General Car Supervisor Yard Relationship Specialty Start Date End Date Stephie Ramirez, ACCOUNTING REPRESENTATIVE.BUGGY LADLE TENDER [address] [place], [place] [id number] Referring Endocrinology 09/19/21 Jean Pierre Kilgore MD [address] [place] [address] [place], [place] [id number] Internal Medicine 08/18/23 General Car Supervisor Yard Relationship Specialty Start Date End Date Stephie Ramirez, ACCOUNTING REPRESENTATIVE.BUGGY LADLE TENDER [address] [place], [place] [address] Referring Endocrinology 09/19/21 Jean Pierre Kilgore MD [address] [address] [place], [place] [id number] Internal Medicine 08/18/23 General Car Supervisor Yard Relationship Specialty Start Date End Date Stephie Ramirez, ACCOUNTING REPRESENTATIVE.BUGGY LADLE TENDER [address] [place], [place] [address] Referring Endocrinology 09/19/21 Jean Pierre Kilgore MD [address] [place] [address] [place] [address] Internal Medicine 08/18/[address] [place] [address] Registered Dietitian Nutrition 08/26/23 General Car Supervisor Yard Relationship Specialty Start Date End Date Stephie Ramirez, ACCOUNTING REPRESENTATIVE.BUGGY LADLE TENDER [address] [place], [place] [id number] Referring Endocrinology 09/19/21 Jean Pierre Kilgore MD [address] [place] [address] [place] [address] Internal Medicine 08/18/[address] [place] [address] Registered Dietitian Nutrition 08/26/23 General Car Supervisor Yard Relationship Specialty Start Date End Date Stephie Ramirez, ACCOUNTING REPRESENTATIVE.BUGGY LADLE TENDER [address] [place], [place] [id number] Referring Endocrinology 09/19/21 Jean Pierre Kilgore MD [address] [place] [address] [place] [address] Internal Medicine 08/18/[address] [facility] [place] [address] Registered Dietitian Nutrition 08/26/23 General Car Supervisor Yard Relationship Specialty Start Date End Date Stephie Ramirez, ACCOUNTING REPRESENTATIVE.BUGGY LADLE TENDER [address] [place] [address] Referring Endocrinology 09/19/21 Jean Pierre Kilgore MD [address] [place] [address] [place] [address] Internal Medicine 08/18/[address] [place] [address] Registered Dietitian Nutrition 08/26/23 General Car Supervisor Yard Relationship Specialty Start Date End Date Stephie Ramirez, ACCOUNTING REPRESENTATIVE.BUGGY LADLE TENDER [address] [place] [address] Referring Endocrinology 09/19/21 Jean Pierre Kilgore MD [address] [place] [address] [place] [address] Internal Medicine 08/18/[address] [place], [place] [address] Registered Dietitian Nutrition 08/26/23 General Car Supervisor Yard Relationship Specialty Start Date End Date Stephie Ramirez, ACCOUNTING REPRESENTATIVE.BUGGY LADLE TENDER [address] [place] [address] Referring Endocrinology 09/19/21 General Car Supervisor Yard Relationship Specialty Start Date End Date Stephie Ramirez, ACCOUNTING REPRESENTATIVE.BUGGY LADLE TENDER [address] [place] [address] Referring Endocrinology 09/19/21 Jean Pierre Kilgore MD [address] [address] [place] [address] Internal Medicine 08/18/[address] [place] [address] Registered Dietitian Nutrition 08/26/23 General Car Supervisor Yard Relationship Specialty Start Date End Date Stephie Ramirez, ACCOUNTING REPRESENTATIVE.BUGGY LADLE TENDER [address] [place], [place] [id number] Referring Endocrinology 09/19/21 Jean Pierre Kilgore MD [address] [address] [place] [address] Internal Medicine 08/18/[address] [place] [address] Registered Dietitian Nutrition 08/26/23 General Car Supervisor Yard Relationship Specialty Start Date End Date Stephie Ramirez, ACCOUNTING REPRESENTATIVE.BUGGY LADLE TENDER [address] [place] [address] Referring Endocrinology 09/19/21 General Car Supervisor Yard Relationship Specialty Start Date End Date Stephie Ramirez, ACCOUNTING REPRESENTATIVE.BUGGY LADLE TENDER [address] [place] [address] Referring Endocrinology 09/19/21 Jean Pierre Kilgore MD [address] [place] [address] [place] [address] Internal Medicine 08/18/[address] [place] [address] Registered Dietitian Nutrition 08/26/23 General Car Supervisor Yard Relationship Specialty Start Date End Date Stephie Ramirez, ACCOUNTING REPRESENTATIVE.BUGGY LADLE TENDER [address] [place] [address] Referring Endocrinology 09/19/21 Jean Pierre Kilgore MD [address] [place] [address] [place], [place] [id number] Internal Medicine 08/18/[address] [place] [address]691 Registered Dietitian Nutrition 08/26/23 General Car Supervisor Yard Relationship Specialty Start Date End Date Stephie Ramirez, ACCOUNTING REPRESENTATIVE.BUGGY LADLE TENDER [facility] [place], [place] [id number] Referring Endocrinology 09/19/21 Jean Pierre Kilgore MD [address] [address] [place], [place] [id number] Internal Medicine 08/18/[address] [place] 55[address]11 Registered Dietitian Nutrition 08/26/23 General Car Supervisor Yard Relationship Specialty Start Date End Date Stephie Ramirez, ACCOUNTING REPRESENTATIVE.BUGGY LADLE TENDER [facility] [address] [place] [address] Referring Endocrinology 09/19/21 Jean Pierre Kilgore MD [address] [place], [place] [id number] Internal Medicine 08/18/[address] [place] [address] Registered Dietitian Nutrition 08/26/23 General Car Supervisor Yard Relationship Specialty Start Date End Date Stephie Ramirez, ACCOUNTING REPRESENTATIVE.BUGGY LADLE TENDER [address] [place], [place] [id number] Referring Endocrinology 09/19/21 Jean Pierre Kilgore MD [address] [place] [address] [place], [place] [id number] Internal Medicine 08/18/[address] [facility] [place] [address]841 Registered Dietitian Nutrition 08/26/23 General Car Supervisor Yard Relationship Specialty Start Date End Date Stephie Ramirez, ACCOUNTING REPRESENTATIVE.BUGGY LADLE TENDER [address] [place] [address] Referring Endocrinology 09/19/21 Jean Pierre Kilgore MD [address] [address] [place], [place] [id number] Internal Medicine 08/18/[address] [facility] [place] [place] [address] Registered Dietitian Nutrition 08/26/23 General Car Supervisor Yard Relationship Specialty Start Date End Date Stephie Ramirez, ACCOUNTING REPRESENTATIVE.BUGGY LADLE TENDER [address] [facility] [place] [id number] Referring Endocrinology 09/19/21 Jean Pierre Kilgore MD [address] [place] [address] [place], [place] [id number] Internal Medicine 08/18/[address] [place] [address] Registered Dietitian Nutrition 08/26/23 General Car Supervisor Yard Relationship Specialty Start Date End Date Stephie Ramirez, ADALI.BUGGY LADLE TENDER [address] [place], [place] [id number] Referring Endocrinology 09/19/21 Jean Pierre Kilgore MD [address] [place] [address] [place] [address] Internal Medicine 08/18/[address] [place] [address] Registered Dietitian Nutrition 08/26/23 General Car Supervisor Yard Relationship Specialty Start Date End Date Stephie Ramirez, ACCOUNTING REPRESENTATIVE.BUGGY LADLE TENDER [address] [place], [place] [id number] Referring Endocrinology 09/19/21 Jean Pierre Kilgore MD [address] [place] [address] [place] [place] [address] Internal Medicine 08/18/[address] [place] [address] Registered Dietitian Nutrition 08/26/23 General Car Supervisor Yard Relationship Specialty Start Date End Date Stephie Ramirez, ACCOUNTING REPRESENTATIVE.BUGGY LADLE TENDER [address] [place] [address] Referring Endocrinology 09/19/21 Jean Pierre Kilgore MD [address] [address] [place], [place] [id number] Internal Medicine 08/18/[address] [place] [facility] [place] 369331 Registered Dietitian Nutrition 08/26/23 General Car Supervisor Yard Relationship Specialty Start Date End Date Stephie Ramirez, ACCOUNTING REPRESENTATIVE.BUGGY LADLE TENDER [address] [place], [place] [phone] Referring Endocrinology 09/19/21 Jean Pierre Kilgore MD [address] [place] [address] [place] [address] Internal Medicine 08/18/[address] [place], [place] 987131 Registered Dietitian Nutrition 08/26/23 General Car Supervisor Yard Relationship Specialty Start Date End Date Stephie Ramirez, ACCOUNTING REPRESENTATIVE.BUGGY LADLE TENDER [address] [facility] [address] [place], [place] [id number] Referring Endocrinology 09/19/21 Jean Pierre Kilgore MD [address] [place] [address] [place] [address] Internal Medicine 08/18/[address] [place] [address] Registered Dietitian Nutrition 08/26/23 Team Status: Active Member Role Status Dates Dr. Lenora Sutton , DO Family Provider Active Dr. Lenora Sutton , DO Primary Care Provider Activ e Team Status: Inactive Member Role Status Dates Dr. Lenora Sutton , DO Primary Care Provider Activ e SOM SANTIAGO Attending Provider, Referring Provid er Active MARY JO TOBAR Other Provider Active General Car Supervisor Yard Relationship Specialty Start Date End Date Stephie Ramirez, ACCOUNTING REPRESENTATIVE.BUGGY LADLE TENDER [address] [place], [place] [id number] Referring Endocrinology 09/19/21 Jean Pierre Kilgore MD [address] [place] [address] [place] [address] Internal Medicine 08/18/[address] [facility] [place] [facility] [place] 843761 Registered Dietitian Nutrition 08/26/23 General Car Supervisor Yard Relationship Specialty Start Date End Date Stephie Ramirez, ACCOUNTING REPRESENTATIVE.BUGGY LADLE TENDER [address] [place], [place] [id number] Referring Endocrinology 09/19/21 Jean Pierre Kilgore MD [address] [place] [address] [place] [place] [address] Internal Medicine 08/18/[address] [facility] [place] [address] Registered Dietitian Nutrition 08/26/23 General Car Supervisor Yard Relationship Specialty Start Date End Date Stephie Ramirez, ACCOUNTING REPRESENTATIVE.BUGGY LADLE TENDER [address] [place], [place] [phone] Referring Endocrinology 09/19/21 Jean Pierre Kilgore MD [address] [place] [address] [place], [place] [id number] Internal Medicine 08/18/[address] [place] [place] 700021 Registered Dietitian Nutrition 08/26/23 General Car Supervisor Yard Relationship Specialty Start Date End Date Stephie Ramirez, ACCOUNTING REPRESENTATIVE.BUGGY LADLE TENDER [address] [place], [place] [id number] Referring Endocrinology 09/19/21 Jean Pierre Kilgore MD [address] [place] [address] [place], [place] [id number] Internal Medicine 08/18/[address] [place] [id number] Registered Dietitian Nutrition 08/26/23 Team Status: Inactive Member Role Status Dates Dr. Lenora Sutton , Primary Care Provider MARY JO Bauer Other Provider Active SOM SANTIAGO Attending Provider, Referring Provid er Active General Car Supervisor Yard Relationship Specialty Start Date End Date Stephie Ramirez, ACCOUNTING REPRESENTATIVE.BUGGY LADLE TENDER [address] [place], [place] [phone] Referring Endocrinology 09/19/21 Jean Pierre Kilgore MD [address] [address] [place], [place] [id number] Internal Medicine 08/18/[address] [place] [id number] Registered Dietitian Nutrition 08/26/23 General Car Supervisor Yard Relationship Specialty Start Date End Date Stephie Ramirez, ACCOUNTING REPRESENTATIVE.BUGGY LADLE TENDER [address] [place], [place] [phone] Referring Endocrinology 09/19/21 Jean Pierre Kilgore MD [address] [place] [address] [place], [place] [id number] Internal Medicine 08/18/[address] [place], [place] 07408691 Registered Dietitian Nutrition 08/26/23 General Car Supervisor Yard Relationship Specialty Start Date End Date Stephie Ramirez, ACCOUNTING REPRESENTATIVE.BUGGY LADLE TENDER [address] [place], [place] [id number] Referring Endocrinology 09/19/21 Jean Pierre Kilgore MD [address] [place] [address] [place], [place] [id number] Internal Medicine 08/18/[address] [place] [address] Registered Dietitian Nutrition 08/26/23 General Car Supervisor Yard Relationship Specialty Start Date End Date Stephie Ramirez, ACCOUNTING REPRESENTATIVE.BUGGY LADLE TENDER [address] [place], [place] [id number] Referring Endocrinology 09/19/21 Jean Pierre Kilgore MD [address] [place] [address] [place], [place] [id number] Internal Medicine 08/18/[address] [place] [address] Registered Dietitian Nutrition 08/26/23 General Car Supervisor Yard Relationship Specialty Start Date End Date Stephie Ramirez, ACCOUNTING REPRESENTATIVE.BUGGY LADLE TENDER [address] [place], [place] [phone] Referring Endocrinology 09/19/21 Jean Pierre Kilgore MD [address] [place] [address] [place], [place] [id number] Internal Medicine 08/18/[address] [place] [place], [place] [address]001 Registered Dietitian Nutrition 08/26/23 General Car Supervisor Yard Relationship Specialty Start Date End Date Stephie Ramirez, ACCOUNTING REPRESENTATIVE.BUGGY LADLE TENDER [address] [facility], [place] [id number] Referring Endocrinology 09/19/21 Jean Pierre Kilgore MD [address] [place] [address] [place] [address] Internal Medicine 08/18/[address] [place] [address] Registered Dietitian Nutrition 08/26/23 General Car Supervisor Yard Relationship Specialty Start Date End Date Stephie Ramirez, ACCOUNTING REPRESENTATIVE.BUGGY LADLE TENDER [address] [place] [address] Referring Endocrinology 09/19/21 Jean Pierre Kilgore MD [address] [place] [address] [place] [place] [address] Internal Medicine 08/18/[address] [place] [address] Registered Dietitian Nutrition 08/26/23 General Car Supervisor Yard Relationship Specialty Start Date End Date Stephie Ramirez, ACCOUNTING REPRESENTATIVE.BUGGY LADLE TENDER [address] [place], [place] [id number] Referring Endocrinology 09/19/21 Jean Pierre Kilgore MD [address] [place] [address] [place] [address] Internal Medicine 08/18/[address] [place] [address] Registered Dietitian Nutrition 08/26/23 General Car Supervisor Yard Relationship Specialty Start Date End Date Stephie Ramirez, ACCOUNTING REPRESENTATIVE.BUGGY LADLE TENDER [address] [place] [address] Referring Endocrinology 09/19/21 Jean Pierre Kilgore MD [address] [place] [address] [place] [address] Internal Medicine 08/18/[address] [place] [address] Registered Dietitian Nutrition 08/26/23 General Car Supervisor Yard Relationship Specialty Start Date End Date Stephie Ramirez, ACCOUNTING REPRESENTATIVE.BUGGY LADLE TENDER [address] [facility] 300 [place], [place] [id number] Referring Endocrinology 09/19/21 Jean Pierre Kilgoer MD [address] [place] [address] [place], [place] [id number] Internal Medicine 08/18/[address] [place] [address] Registered Dietitian Nutrition 08/26/23 General Car Supervisor Yard Relationship Specialty Start Date End Date Stephie Ramirez, ACCOUNTING REPRESENTATIVE.BUGGY LADLE TENDER [address] [facility] [address] [place] [address] Referring Endocrinology 09/19/21 Jean Pierre Kilgore MD [address] [place] [address] [place] [address] Internal Medicine 08/18/[address] [place] [address] Registered Dietitian Nutrition 08/26/23 General Car Supervisor Yard Relationship Specialty Start Date End Date Stephie Ramirez, ACCOUNTING REPRESENTATIVE.BUGGY LADLE TENDER [address] [facility] [address] [place] [address] Referring Endocrinology 09/19/21 Jean Pierre Kilgore MD [address] [place] [address] [place] [address] Internal Medicine 08/18/[address] [place] [address] Registered Dietitian Nutrition 08/26/23 General Car Supervisor Yard Relationship Specialty Start Date End Date Stephie Ramirez, ACCOUNTING REPRESENTATIVE.BUGGY LADLE TENDER [address] [place], [place] [id number] Referring Endocrinology 09/19/21 Jean Pierre Kilgore MD [address] [place] [address] [place], [place] [id number] Internal Medicine 08/18/[address] [place], [place] 588591 Registered Dietitian Nutrition 08/26/23 General Car Supervisor Yard Relationship Specialty Start Date End Date Stephie Ramirez, ACCOUNTING REPRESENTATIVE.BUGGY LADLE TENDER [address] [place] [address] Referring Endocrinology 09/19/21 Jean Pierre Kilgore MD [address] [place] [address] [place] [address] Internal Medicine 08/18/[address] [place] [address] Registered Dietitian Nutrition 08/26/23 General Car Supervisor Yard Relationship Specialty Start Date End Date Stephie Ramirez, ACCOUNTING REPRESENTATIVE.BUGGY LADLE TENDER [address] [place], [place] [id number] Referring Endocrinology 09/19/21 Jean Pierre Kligore MD [address] [place] [address] [place], [place] [id number] Internal Medicine 08/18/[address] [place] 548621 Registered Dietitian Nutrition 08/26/23 General Car Supervisor Yard Relationship Specialty Start Date End Date Stephie Ramirez, ACCOUNTING REPRESENTATIVE.BUGGY LADLE TENDER [address] [place], [place] [id number] Referring Endocrinology 09/19/21 Jean Pierre Kilgore MD [address] [address] [place], [place] [id number] Internal Medicine 08/18/[address] [place] [address] Registered Dietitian Nutrition 08/26/23 General Car Supervisor Yard Relationship Specialty Start Date End Date Stephie Ramirez, ACCOUNTING REPRESENTATIVE.BUGGY LADLE TENDER [address] [facility] [place] [address] Referring Endocrinology 09/19/21 Jean Pierre Kilgore MD [address] [place] [address] [place] [address] [place] [address] Internal Medicine 08/18/[address] [place] [address] Registered Dietitian Nutrition 08/26/23 General Car Supervisor Yard Relationship Specialty Start Date End Date Stephie Ramirez, ACCOUNTING REPRESENTATIVE.BUGGY LADLE TENDER [address] [place] [address] Referring Endocrinology 09/19/21 Jean Pierre Kilgore MD [address] [place] [address] [place], [place] [id number] Internal Medicine 08/18/[address] [place] [address] Registered Dietitian Nutrition 08/26/23 General Car Supervisor Yard Relationship Specialty Start Date End Date Stephie Ramirez, ACCOUNTING REPRESENTATIVE.BUGGY LADLE TENDER [address] [place], [place] [id number] Referring Endocrinology 09/19/21 Jean Pierre Kilgore MD [address] [place] [address] [place] [address] [place] [address] Internal Medicine 08/18/[address] [place] [address] Registered Dietitian Nutrition 08/26/23 General Car Supervisor Yard Relationship Specialty Start Date End Date Stephie Ramirez, ACCOUNTING REPRESENTATIVE.BUGGY LADLE TENDER [address] [place] [address] Referring Endocrinology 09/19/21 Jean Pierre Kilgore MD [address] [place] [address] [place] [address] Internal Medicine 08/18/[address] [place] [address] Registered Dietitian Nutrition 08/26/23 General Car Supervisor Yard Relationship Specialty Start Date End Date Stephie Ramirez, ACCOUNTING REPRESENTATIVE.BUGGY LADLE TENDER [address] [place], [place] [id number] Referring Endocrinology 09/19/21 Jean Pierre Kilgore MD [address] [place] [address] [place], [place] [id number] Internal Medicine 08/18/[address] [place], [place] 882621 Registered Dietitian Nutrition 08/26/23 General Car Supervisor Yard Relationship Specialty Start Date End Date Stephie Ramirez, ACCOUNTING REPRESENTATIVE.BUGGY LADLE TENDER [address] [place], [place] [id number] Referring Endocrinology 09/19/21 Jean Pierre Kilgore MD [address] [place] [address] [place], [place] [id number] Internal Medicine 08/18/[address] [place] [address] Registered Dietitian Nutrition 08/26/23 General Car Supervisor Yard Relationship Specialty Start Date End Date Stephie Ramirez, ACCOUNTING REPRESENTATIVE.BUGGY LADLE TENDER [address] [place] [address] Referring Endocrinology 09/19/21 Jean Pierre Kilgore MD [address] [place] [address] [place] [address] [place] [address] Internal Medicine 08/18/[address] [place] [address] Registered Dietitian Nutrition 08/26/23 General Car Supervisor Yard Relationship Specialty Start Date End Date Stephie Ramirez, ADALI.BUGGY LADLE TENDER [address] [facility] [address] [place], [place] [id number] Referring Endocrinology 09/19/21 Jean Pierre Kilgore MD [address] [place] [address] [place] [address] [place] [address] Internal Medicine 08/18/[address] [place] [address] Registered Dietitian Nutrition 08/26/23 General Car Supervisor Yard Relationship Specialty Start Date End Date Stephie Ramirez, ACCOUNTING REPRESENTATIVE.BUGGY LADLE TENDER [address] [place] [address] Referring Endocrinology 09/19/21 Jean Pierre Kilgore MD [address] [place] [address] [place] [address] [place] [address] Internal Medicine 08/18/[address] [place] [address] Registered Dietitian Nutrition 08/26/23 General Car Supervisor Yard Relationship Specialty Start Date End Date Stephie Ramirez, ACCOUNTING REPRESENTATIVE.BUGGY LADLE TENDER [address] [place] [address] Referring Endocrinology 09/19/21 Jean Pierre Kilgore MD [address] [place] [address] [place] [address] [place] [address] Internal Medicine 08/18/[address] [place] [address] Registered Dietitian Nutrition 08/26/23 General Car Supervisor Yard Relationship Specialty Start Date End Date Stephie Ramirez, ACCOUNTING REPRESENTATIVE.BUGGY LADLE TENDER [address] [place] [address] Referring Endocrinology 09/19/21 Jean Pierre Kilgore MD [address] [place] [address] [place] [place] [address] Internal Medicine 08/18/[address] [place] [address] Registered Dietitian Nutrition 08/26/23 General Car Supervisor Yard Relationship Specialty Start Date End Date Stephie Ramirez, ACCOUNTING REPRESENTATIVE.BUGGY LADLE TENDER [address] [place] [address] Referring Endocrinology 09/19/21 Jean Pierre Kilgore MD [address] [place] [address] [place] [address] Internal Medicine 08/18/[address] [place] [address] Registered Dietitian Nutrition 08/26/23 General Car Supervisor Yard Relationship Specialty Start Date End Date Stephie Ramirez, ACCOUNTING REPRESENTATIVE.BUGGY LADLE TENDER [address] [place] [address] Referring Endocrinology 09/19/21 Jean Pierre Kilgore MD [address] [place] [address] [place], [place] [id number] Internal Medicine 08/18/[address] [place] [place] 471371 Registered Dietitian Nutrition 08/26/23 General Car Supervisor Yard Relationship Specialty Start Date End Date Stephie Ramirez, ACCOUNTING REPRESENTATIVE.BUGGY LADLE TENDER [facility] [place], [place] [id number] Referring Endocrinology 09/19/21 Jean Pierre Kilgore MD [address] [address] [place], [place] [id number] Internal Medicine 08/18/[address] [place] 123731 Registered Dietitian Nutrition 08/26/23 General Car Supervisor Yard Relationship Specialty Start Date End Date Stephie Ramirez, ACCOUNTING REPRESENTATIVE.BUGGY LADLE TENDER [facility] [address] [place] [address] Referring Endocrinology 09/19/21 Jean Pierre Kilgore MD [address] [address] [place], [place] [id number] Internal Medicine 08/18/[address] [place] [address] Registered Dietitian Nutrition 08/26/23 General Car Supervisor Yard Relationship Specialty Start Date End Date Stephie Ramirez APRN.BUGGY LADLE TENDER [address] [place], [place] [id number] Referring Endocrinology 09/19/21 Jean Pierre Kilgore MD [address] [address] [place], [place] [id number] Internal Medicine 08/18/[address] [place] [address] Registered Dietitian Nutrition 08/26/23 Scheduled Active and Recently Administ ered Medications (unrecognized section and content) Medication Order 05/12/2022 05/13/2022 05/14/2022 dornase alpha (PULMOZYME) 2.5 mg/2.5mL nebulizer solution 2.5 mg 2.5 mg (0.0665 mg/kg/DAY), Nebulization, DAILY, 90 doses, First dose on 05/12/22 at 1630, Last dose on Fri08/09/22 at 0900 1630 (Not Given - Provider: Roya Kapoor RN - Reason: Patient/family refused) 0809 (Not Given - Provider: Roya Kapoor RN - Reason: Patient/family refused) 0916 (Not Given - Provider: Andreia Rose RN - Reason: Patient/family refused) Eimvmpvv-Uuhsnma-Vafnwj& Ivacaf (Trikafta) oral tablet therapy pack 1 Tablet 1 Tablet, Oral, DAILY, First dose on 05/12/22 at 1630, Until Discontinued, Home Medication: 2 orange tablets in AM every even day, and 1 orange table in AM every odd day. Do not take blue pills. Take with fat containing food. Home supply verified over the phone with OLEKSANDR Pryor at [facility] 05-12-22. RN must override scan for administration., [...] prior to admission (Home medication), Attending Provider: CURITS CISNEROS V 1925 (Given - Provider: Jarred Melissa, OLEKSANDR - Comment: given with food. 2 tablets on even days) 899 (Not Given - Provider: Roya Kapoor RN - Reason: Patient/family refused - Comment: requesting to take at night)2109 (Given - Provider: Brittany Virk, OLEKSANDR) fluticasone (FLONASE) nasal spray 1 Absaraka 1 Absaraka, Each Nare, 2 TIMES DAILY, 180 doses, First dose on 05/12/22 at 2100, Last dose on 08/10/22 at 0900, OP SI Absaraka by Each Nare route 2 times daily 2033 (Given - Provider: Mckenna Salas RN) 828 (Given - Provider: Roya Kapoor RN)2110 (Given - Provider: Brittany Virk, OLEKSANDR) 919 (Given - Provider: Andreia Rose, OLEKSANDR) fluticasone (FLOVENT HFA) 220 mcg inhaler 1 Puff 1 Puff, Inhalation, 2 TIMES DAILY, 180 doses, First dose on 05/12/22 at 2100, Last dose on 08/10/22 at 0900, Rinse mouth with water (without swallowing) or brush teeth after inhalation.OP SIG:Inhale 1 Puff into the lungs 2 times daily 2033 (Given - Provider: Mckenna Salas RN) 08 (Given - Provider: Roya Kapoor RN)2110 (Given - Provider: Brittany Virk, OLEKSANDR) 918 (Given - Provider: Andreia Rose RN) Fluticasone-Salmeterol (ADVAIR) 500-50 mcg diskus inhaler 1 Puff 1 Puff, Inhalation, 2 TIMES DAILY, First dose (after last reorder) on 05/13/22 at 1230, Until Discontinued 1706 (Given - Provider: Roya Kapoor RN)2142 (Not Given - Provider: Brittany Virk RN - Reason: Other - Comment: Given early) 918 (Given - Provider: Andreia Rose, OLEKSANDR) insulin detemir (LEVEMIR) injection 8 Units 8 Units (0.213 Units/kg/DAY), Subcutaneous, BEDTIME, 90 doses, First dose on 05/12/22 at 2100, Last dose on Fri08/09/22 at [...] be administered. 2029 (Given - Provider: Mckenna Salas RN) 0912 (Given - Provider: Roya Kapoor RN)1447 (Given - Provider: Roya Kapoor RN)1930 (Given - Provider: Roya Kapoor RN) 0026 (Not Given - Provider: Brittany Virk RN - Reason: No meal/snack taken - Comment: Pt did not want glucose recheck at bedtime)09 (Given - Provider: Andreia Rose RN)1317 (Given - Provider: Andreia Rose RN) insulin Lispro (HumaLOG) injection (COMPLETED) Subcutaneous, ONCE, 1 dose, On 05/12/22 at 1530, Administer 5 units now 1525 (Given - Provider: Marielena Javier RN) metoclopramide (REGLAN) injection 10 mg (COMPLETED) 10 mg (0.266 mg/kg/DOSE), Intravenous, ONCE, 1 dose, On 05/12/22 at 1345 1343 (Given - Provider: Magalie Kuhn RN) MVW COMPLETE FORMULATION Capsule 2 Capsule 2 Capsule, Oral, DAILY, 90 doses, First dose on Fri05/12/22 [...] Minutes 1010 (New Bag - Provider: Lolis James RN)1011 (Rate/Dose Change - Provider: Magalie Kuhn RN)1058 (Rate/Dose Change - Provider: Magalie Kuhn RN)1100 (Dose/Rate Verification - Provider: Magalie Kuhn RN)1100 (Dose/Rate Verification - Provider: Roya Kapoor RN)1200 [...] at 0945 0935 (Given - Provider: Magalie Kuhn, OLEKSANDR) pancrelipase (CREON) 38752-109283 units capsule 108,000 Units 108,000 Units (14,400 [...] Take 5mg on Friday, Friday and Friday 0826 (Given - Provider: Roya Kapoor RN) polyethylene glycol (GLYCOLAX) packet 17 g 17 g (0.452 g/kg/DAY), Oral, DAILY, First dose on 05/12/22 at 1630, Until Discontinued, Nursing to dilute with 240 ml of fluid 1753 (Given - Provider: Roya Kapoor RN) 0900 (Not Given - Provider: Roya Kapoor RN - Reason: Patient/family refused) 09 (Not Given - Provider: Andreia Rose, OLEKSANDR - Reason: Patient/family refused) senna (SENOKOT) tablet 8.6 mg 8.6 mg (0.454 mg/kg/DAY), Oral, 2 TIMES DAILY, 180 doses, First dose on 05/12/22 at 2100, Last dose on 08/10/22 at 0900 2033 (Given - Provider: Mckenna Salas, OLEKSANDR) 09 (Not Given - Provider: Roya Kapoor RN - Reason: Patient/family refused)2108 (Given - Provider: Brittany Virk RN) 09 (Not Given - Provider: Andreia Rose RN [...] Roya Kapoor RN)1500 (Paused - Provider: Roya Kapoor RN)1500 (Rate/Dose Change - Provider: Roya Kapoor RN)1527 (Stopped - Provider: Roya Kapoor RN)1527 (Stopped - Provider: Roya Kapoor RN)1706 (New Bag - Provider: Roya Kapoor RN)1999 (Dose/Rate Verification - Provider: Roya Kapoor RN)2000 (Dose/Rate Verification - Provider: Mckenna Salas RN)2100 (Dose/Rate Verification - Provider: Mckenna Salas RN)2200 (Dose/Rate Verification - Provider: Mckenna Salas, OLEKSANDR)230 (Dose/Rate Verification - Provider: Mckenna Salas RN) [...] Brittany Virk RN)1801 (Dose/Rate Verification - Provider: Brittany Virk RN)1838 (Stopped - Provider: Brittany Virk RN)1839 (New Bag - Provider: Roya Kapoor RN)1901 (Dose/Rate Verification - Provider: Brittany Virk RN)2001 (Dose/Rate Verification - Provider: Brittany Virk RN)2101 (Dose/Rate Verification - Provider: Brittany Virk RN)2201 (Dose/Rate Verification - Provider: Brittany Virk RN)2301 (Dose/Rate Verification - Provider: Brittany Virk RN) [...] Virk RN)0644 (Dose/Rate Verification - Provider: Brittany Virk RN)0701 (Dose/Rate Verification - Provider: Brittany Virk RN)0723 (Dose/Rate Verification - Provider: Brittany Virk RN)0800 (Dose/Rate Verification - Provider: Andreia Rose RN)0900 (Dose/Rate Verification - Provider: Andreia Rose RN)1000 (Dose/Rate Verification - Provider: Andreia Rose RN)1100 (Dose/Rate Verification - Provider: Andreia Rose RN)1200 (Dose/Rate Verification - Provider: Andreia Rose RN)1300 (Dose/Rate Verification - Provider: Andreia Rose, RN)1400 (Dose/Rate Verification - Provider: Andreia Rose [...] mixture of medications, For mixture of medications Goals (unrecognized section and content) Goals may be documented in a n alternate section FOR RECORDS PERTAINING TO PATIENTS WHO ARE [...] BE BASED ON THE PRIMARY CLINICAL RECORDS. [employer] provides no warranty or guarantee of the accuracy or completeness of information in this document.
--- OUTSIDE RECORDS SUMMARY | 2025-05-03 00:54 | XMS RPT_ITS | CCD ---
Author Organization [facility] CliniSyaz Care Team Providers Care Granite Worker Name Role Phone DARRIAN, STEPHIE J Unavailable Unavailable IMCA Unavailable Unavailable DARRIAN, STEPHIE J Unavailable Unavailable IMCA Unavailable Unavailable DARRIAN, STEPHIE J Unavailable Unavailable DARRIAN, STEPHIE J Unavailable Unavailable DARRIAN, STEPHIE J Unavailable Unavailable DARRIAN, STEPHIE J Unavailable Unavailable DARRIAN, STEPHIE J Unavailable Unavailable IMCA Unavailable Unavailable DARRIAN, STEPHIE J Unavailable Unavailable DARRIAN, STEPHIE J Unavailable Unavailable Darrian METALWORKING INSTRUCTOR.Stephie BIANCHI Unavailable Jean Pierre Kilgore MD Unavailable No sole splitter, Md Primary Care Provider Zeynep vailable Orquidea Crespo Unavailable [phone] Mike EDWARD/LD, Orquidea Unavailable Garry METALWORKING INSTRUCTOR-Jasmyn BIANCHI Unavailable Merlin RN, Maryam Patton Unavailable Unavailable Luis Eduardo LEGGETT, Whitley Jones Unavailable Unavailable PHYSICIAN, NONE Primary Care Physician Unavailab le PROVIDER, UNKNOWN Attending Unavailable PROVIDER, UNKNOWN Admitting Unavailable Darrian METALWORKING INSTRUCTOR.Stephie BIANCHI Unavailable Darrian METALWORKING INSTRUCTOR.Stephie BIANCHI Unavailable NO PRIMARY CARE, Primary Care Unavailable CURTIS CISNEROS Attending Unavailable CURTIS CISNEROS Admitting Unavailable Jean Pierre Kilgore MD Unavailable [phone] Abelino EDWARD, Be Unavailable Rosalino Bertrand Attending Unavailable Rosalino Bertrand Referring Unavailable Care Physician, No Primary Primary Care Unava ilable Niko Cook Admitting Unavailable Niko Cook Consulting Unavailable Anahi Wilder Attending Unavailable Care Physician, No Primary Primary Care Unava ilable Koram, Anahi Prudence Consulting Unavailable Niko Cook Attending Unavailable [...] Referring Unavailable WEIELGEORGE FERNANDO Referring Unavailable JESUS ZHANGISTA Attending Unavailable SHEERS, JEAN PIERRE NATHALIE Referring Unavailabl e SHEERSJOSSELINUS NATHALIE Attending Unavailabl e SHEERS JEAN PIERRE NATHALIE [...] Drug Allergy 6 Rash, Other: See Comments [facility] Glycopeptides (antibiotic) (4 sources) Vancomycin Drug Allergy 3 Itching, Rash [facility] linezolid (4 sources) linezolid Drug Allergy 3 Rash, GI Upset [facility] Work Phone: (20 sources) cefOXitin; Translations: [CEFOXITIN] Drug Allergy 6 Rash, Other (See Comments), Other: See Comments [facility] Repository (20 sources) Vancomycin; Translations: [VANCOMYCIN] Drug Allergy 3 Itching, Rash [facility] (20 sources) linezolid; Translations: [LINEZOLID] Drug Allergy 3 Rash, GI Upset [facility] Work Phone: Medications Current Medications Medication [...] as needed for wheezing/shortness of breath. amylase 165783 unt / lipase 65567 unt / protease 699821 unt delayed release oral capsule (20 sources) [...] 02/09/2025 Active Start: 01-14-2022 End: 01-14-2023 CREON 12269-343408 units cap cyndy Take 3 Capsules (108,000 [...] by inhalation three times daily aztreonam lysine ([facility]) 75 mg/mL nebulizer solution [...] sugar s 3x/day Blood-Glucose Meter,Continuous (DEXCOM G7 INTERNETWORKING TECHNICIAN) misc (20 sources) Start: 02-27-2023 Blood-Glucose Meter,Continuous (DEXCOM G7 INTERNETWORKING TECHNICIAN) misc Indications: Type 1 diabetes mellitus with hyperglycemia (HCC) For monitoring sugars 1 Each 02/27/2023 Suspended Start: 02-27-2023 Blood-Glucose Meter,Continuous (DEXCOM G7 INTERNETWORKING TECHNICIAN) misc Indications: Type 1 diabetes mellitus with [...] Comment on above: Take 1 capsule by [facility] two times a week. ciprofloxacin 750 mg [...] Comment on above: Take 1 tablet by [facility] twice daily for 21 days. Take 1 tablet by [facility] three times daily for 14 days. Take 1 tablet by [facility] three times daily for 21 days. 1 [...] times a day. 28 tablet 04/08/2025 Active Yqigvmrj-Bxzenrd-Sor caf&Ivacaf (TRIKAFTA) 100-50-75 & 150 MG oral tablet therapy pack (1 source) Start: 1 take 1 tablet by mouth in the morning Ahchdxym-Jbblnvv-Tuwf af&Ivacaf (TRIKAFTA) 100-50-75 & 150 MG oral [...] 02-25-2022 vitamin D (ERG OCALCIFEROL) 1.25 MG (45294 UT) capsule Take 1 Capsule (50,000 Units) [...] diabetes mellitus with hyperglycemia (HCC) Use 1 [place] in the nose as needed. May repeat [...] SIGNIFICANT LOW BLOOD SUGAR EVENT Use 1 [place] in the n ose as needed. May [...] Comment on above: Take 1 capsule by [facility] twice daily for 5 days. perflutren lipid [...] intravenously daily at bedtime for 10 days. 69847 mL 0 11/27/2022 12/07/2022 Active Start: 11-18-2022 [...] time only for 1 dose. Spacer/Aero-Holding Chambers (The Poker Barrel DINO) JEAN-PAUL DEVICE (1 source) Start: 05-25-20 Spacer/Aero-Hold ing Chambers ([employer]) JEAN-PAUL DEVICE by Other route Use as [...] 21 days. Take 2 tablets by [facility] twice daily for 14 days. Take 2 tablets by [facility] twice daily for 21 days. Take 1 [...] Comment on above: Take 1 tablet by [facility] once daily. ascorbic acid 226 mg / beta carotene 06627 unt / cuprous oxide 0.8 mg / dl-alpha tocopheryl acetate 200 unt / zinc oxide 34.8 mg oral capsule (20 sources) Vitamin C Start: 08-26-2023 End: 07-06-2024 take 1 capsule by mouth twice daily at mealtime Vit A,C,G-Shgo-Owoesp (PRESERVISION AREDS) 4,296 mcg-226 mg-90 mg cap Take 1 capsule by mouth twice daily. Take with food. 60 capsule 0 08/26/2023 07/06/2024 Discontinued (Discontinued by another Health Care Provider) Start: 08-26-2023 End: 07-06-2024 PRESERVISION AREDS-2 250-90- 40-1 mg Start: 08-26-2023 PRESERVISION A REDS-2 250-90-40-1 mg Start: 08-26-2023 take 1 capsule by [facility] twice daily at mealtime PRESERVISION AREDS-2 250-90-40-1 mg take 1 capsule by mouth twice a day with food 0 08/26/2023 Suspended Start: 08-26-2023 take 1 capsule by [facility] twice daily at mealtime PRESERVISION AREDS-2 250-90-40-1 mg take 1 capsule by mouth twice a day with food 0 08/26/2023 Active Comment on above: Take 1 capsule by [facility] twice daily. Take with food. take 1 capsule by [facility] twice a day with food bumetanide 1 [...] daily. Reports not taking at this time. Oabtljks-Bybvlja-P vacaf&Ivacaf (Trikafta) oral tablet therapy pack 1 [...] over the phone with OLEKSANDR Pryor at [facility] 05-12-22. RN must override scan for administration. [...] 84 Each 1 09/25/2022 Active End: 09-25-2022 azjikpthacv-fpmjousiyx-ihopm ftor (TRIKAFTA) 100-50-75 mg(d) /150 mg (n) [...] 03/10/2023 Discontinued Start: 05-12-2022 End: 05-14-2022 1 [place], Each Nare, 2 TIMES DAILY, 180 doses, First dose on 05/12/22 at 2100, Last dose on 08/10/22 at 0900 OP SI [place] by Each Nare route 2 times daily Start: 01-14-2022 End: 01-14-2023 fluticasone (FLONASE) 50 MCG /ACT nasal spray 1 [place] by Each Nare route 2 times daily [...] Discontinued Start: 01-14-2022 take 1 puff(s) by [facility] twice daily fluticasone-salmeterol (ADVAIR) 500-50 MCG/DOSE diskus [...] am and 4 pm. polyethylene glycol 3350 05960 mg powder for oral solution (20 sources) Osmotic Laxative Start: 02-16-2024 End: 07-06-2024 polyethylene glycol 3350 17 gram packet Take 1 Packet by mouth once daily as needed. Dissolve dose in 4 - 8 ounces of liquid and take as directed. 0 02/16/2024 07/06/2024 Discontinued (Discontinued by another Health Care Provider) Start: 12-04-2023 End: 02-16-2024 polyethylene glycol 3350 (AZ RALAX) 17 gram/dose powder Indications: Cystic fibrosis [...] Comment on above: Take 2 tablets by [facility] once daily for 5 days. sennosides, penitentiary [...] Comment on above: Take 1 tablet by [facility] once daily. tranexamic acid 650 mg oral [...] mg by mouth twice daily. vitamin a 16401 unt oral capsule (20 sources) Vitamin A [...] on above: Take 1 capsule by mo [facility] once daily for 2 weeks and 2 [...] Respiratory failure; insufficiency; arrest (adult) (20 sources) Ayfmt-gl-wkmzyyy respiratory failure; Translations: [Acute and chronic respiratory [...] CNOV Office Visit (ENAGST ) JAY BARBER ([id number]) 1995 Date Time Provider Department 02/14/25 2:30 PM STEPHIE RAMIREZ During your visit today, we recorded the following information about you: Pulse Blood pressure Weight Height 85/minute 131/83 39.7 kg 1.565 m Stephie Ramirez APRN.TUNNEL WORKER 02/14/2025 6:50 PM Signed Subjective Date of [...] appointment with nephrology, 07/2023: prot/creat ratio in [facility] Lipid Profile:10/2013: TC 111, HDL 42, LDL [...] results in care everywhere, 01/2020: labs in [facility], 07/2020; Alkaline Phosphatase 725 (45-117), ALT 77 (16-61), AST 163 (15-37), 12/2020: results in care everywhere., 03/2021: results In care everywhere, 12/2021: Alkaline Phosphatase 918 (38-113), bone percent 13.9%, liver percent 86.1 , 12/2022: liver function monitored by CF providers, 03/2023: in [facility], 08/2023: LFTS in [facility], 10/2023: LFTS in [facility], 03/2024: liver test in [facility], 10/2024: liver in [facility], 01/2025: liver in [facility] Dilated Eye Exam: Patient educated to have ophthalmology visits at least once a year. 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 08/2013: New patient visit for Cystic Fibrosis related Diabetes Previous diabetes related labs [facility] reviewed prior to today's office [...] Date range: (more content not included)... Normal [facility] Comprehensive metabolic 2000 panelon 02-14-2025 Albumin [Mass/Vol] 2.0 g/dL Low 3.9-4.9 [facility] Comment on above: Order Comment: Speci men Type: BLOOD SPECIMEN Ordering Facility: [facility] Address: [address] [place] [address] Performed By: #### 2 4323-8 #### [facility] CLIA [id number] [address] STATES OF [facility] ALP [Catalytic activity/Vol] 1416 U/L High 38-113 [facility] Comment on above: Order Comment: Speci men Type: BLOOD SPECIMEN Ordering Facility: [facility] Address: [address] [place] [address] Performed By: #### 2 4323-8 #### [facility] CLIA [id number] [address] ALT With P-5'-P [Catalytic activity/Vol] 41 U/L Normal 10-54 [facility] Comment on above: Order Comment: Speci men Type: BLOOD SPECIMEN Ordering Facility: [facility] Address: [address] [place] [address] Performed By: #### 2 4323-8 #### [facility] CLIA [id number] [address] Anion gap [Moles/Vol] 9 mmol/L Normal 8-15 [facility] Comment on above: Order Comment: Speci men Type: BLOOD SPECIMEN Ordering Facility: [facility] Address: [facility] [place] [address] Performed By: #### 2 4323-8 #### [facility] CLIA [id number] [address] [place] AST With P-5'-P [Catalytic activity/Vol] 78 U/L High 14-40 [facility] Comment on above: Order Comment: Speci men Type: BLOOD SPECIMEN Ordering Facility: [facility] Address: [address] [place] [address] Performed By: #### 2 4323-8 #### [facility] CLIA [id number] 1 [place] [address] [place] Bilirubin [Mass/Vol] 0.3 mg/dL Normal 0.2-1.3 [facility] Comment on above: Order Comment: Speci men Type: BLOOD SPECIMEN Ordering Facility: [facility] Address: [address] [place] [address] Performed By: #### 2 4323-8 #### [facility] CLIA [id number] 1 [place] [address] [place] Calcium [Mass/Vol] 8.1 mg/dL Low 8.5-10.2 [facility] Comment on above: Order Comment: Speci men Type: BLOOD SPECIMEN Ordering Facility: [facility] Address: [address] [place] [address] Performed By: #### 2 4323-8 #### [facility] CLIA [id number] 1 [place] [address] [place] Chloride [Moles/Vol] 103 mmol/L Normal 98-107 [facility] Comment on above: Order Comment: Speci men Type: BLOOD SPECIMEN Ordering Facility: [facility] Address: [address] [place] [address] Performed By: #### 2 4323-8 #### [facility] CLIA [id number] [address] [place] CO2 [Moles/Vol] 21 mmol/L Low 22-30 [facility] Comment on above: Order Comment: Speci men Type: BLOOD SPECIMEN Ordering Facility: [facility] Address: [address] [place] [address] Performed By: #### 2 4323-8 #### [facility] CLIA [id number] [address] [place] Creatinine [Mass/Vol] 1.36 mg/dL High 0.73-1.22 [facility] Comment on above: Order Comment: Speci men Type: BLOOD SPECIMEN Ordering Facility: [facility] Address: [address] [place] [address] Performed By: #### 2 4323-8 #### [facility] CLIA [id number] 1 [place] [address] [place] Creatinine and Glomerular filtration rate.predicted panel (S/P/Bld) 71 mL/min/1.73m??? Normal >=60 [facility] Comment on above: Order Comment: Kanu sainz Type: BLOOD SPECIMEN Ordering Facility: [facility] Address: [address] [place] [address] Result Comment: Janeth mated Glomerular Filtration Rate [...] GFR. Performed By: #### 2 4323-8 #### [facility] CLIA [id number] [address] [place] [address] [place] Glucose [Mass/Vol] 109 mg/dL High 74-99 [facility] Comment on above: Order Comment: Kanu sainz Type: BLOOD SPECIMEN Ordering Facility: [facility] Address: [address] [place] [address] Result Comment: The [place] [employer] Association (ADA) provides guidance for cutoff [...] Standards of Medical Care in Diabetes 2016, [place] [employer]. Diabetes Care. 2016.39(Suppl 1). Performed By: #### 2 4323-8 #### [facility] CLIA [id number] 1 [place] [address] [place] Potassium [Moles/Vol] 4.3 mmol/L Normal 3.7-5.1 [facility] Comment on above: Order Comment: Kanu sainz Type: BLOOD SPECIMEN Ordering Facility: [facility] Address: [address] [place] [address] Performed By: #### 2 4323-8 #### [facility] CLIA [id number] 1 [place] [address] [place] Protein [Mass/Vol] 7.4 g/dL Normal 6.3-8.0 [facility] Comment on above: Order Comment: Paruli men Type: BLOOD SPECIMEN Ordering Facility: [facility] Address: [address] [place] [address] Performed By: #### 2 4323-8 #### [facility] CLIA [id number] 1 [place] [address] [place] Sodium [Moles/Vol] 133 mmol/L Low 136-144 [facility] Comment on above: Order Comment: Paruli men Type: BLOOD SPECIMEN Ordering Facility: [facility] Address: [address] [place] [address] Performed By: #### 2 4323-8 #### [facility] CLIA [id number] 1 [place] [address] [place] Urea nitrogen [Mass/Vol] 33 mg/dL High 9-24 [facility] Comment on above: Order Comment: Kanu alistair Type: BLOOD SPECIMEN Ordering Facility: [facility] Address: [address] [place] [address] Performed By: #### 2 4323-8 #### [facility] CLIA [id number] 1 [place] [address] [place] STREP A MOLECULAR (POC)on Procedural Control Valid [facility] Strep A (POCT) Negative Negative [facility] XR Chest PA and Lateralon IMPRESSION: Findings related to known underlying cystic fibrosis with bronchiectasis and peribronchial cuffing. Slight shift in superimposed hazy airspace opacities suggesting evolving infectious/inflammato ry process. Clinical correlation requested. Creative/Art Director: KATHIE Transcribe Date/Time: Feb 07 2025 11:33A Dictated by : LILLIANA MOODY MD This examination was interpreted and the report reviewed and electronically signed by: LILLIANA MOODY MD on Feb 07 2025 11:36AM [facility] DIVISION OF RADIOLOGY * * [...] the upper abdomen. DIVISION OF RADIOLOGY Provider, [facility] - 02/07/2025 * * *Final Report* * [...] evolving infectious/inflammato ry process. Clinical correlation requested. Creative/Art Director: PSCB Transcribe Date/Time: Feb 07 2025 11:33A Dictated by : LILLIANA MOODY MD This examination was interpreted and the report reviewed and electronically signed by: LILLIANA MOODY MD on Feb 07 2025 11:36AM EST [facility] Radiology Study observation (narrative) [facility] XR Chest PA and LateralOrder ed By: [facility] Provider on 02-07-2025 [facility] 10-14-2024 [place] Telephone (ENAGST) JAY BARBER ([id number]) 1995 M Date Time Provider Department 10/14/24 STEPHIE RAMIREZ During your visit today, we recorded the following information about you: Stephie Ramirez, ADALI.TUNNEL WORKER 10/14/2024 11:32 AM Signed 10/2024: TSH 1.81 (0.27-4.2 uIU/mL), Thyroid lab ok Please call patient, review message, then sign encounter. Crystal Bridges LPN 10/14/2024 2:00 PM Signed Done spoke with the patient.Patient verbalized understanding. rCystal Bridges LPN October 14, 2024 2:00 PM [...] Date Reviewed: 10/12/2024 Reviewed by: Stephie Ramirez APRN.TUNNEL WORKER - Fully Assessed Reason for Visit: Results [...] total units a day - Blood-Glucose Sensor ([employer] G7 SENSOR) jean-paul use as directed and REPLACE every 10 days - Insulin [place], Disposable, (BD YARON 2ND GEN PEN NEEDLE) [...] a week. - Blood-Glucose Meter,Continuous (DEXCOM G7 INTERNETWORKING TECHNICIAN) [facility] [place] sugars - glucagon (BAQSIMI) 3 mg/actuation nasal spray Use 1 [place] in the nose as needed. May repeat [...] Iron def (more content not included)... Normal [facility] CBC W Auto Differential pane l (Bld)on 10-12-2024 Basophils (Bld) [#/Vol] 0.09 10*3/uL Normal <0.11 [facility] Comment on above: Order Comment: Speci men Type: BLOOD SPECIMENOrdering Facility: [facility] Address: [address] [place] [address] Performed By: #### 5 7021-8 ####[facility] [id number] [place] [address] [place] Basophils/100 WBC (Bld) 1.3 % Normal [facility] Comment on above: Order Comment: Paruli alistair Type: BLOOD SPECIMENOrdering Facility: [facility] Address: [address] [place] [address] Performed By: #### 5 7021-8 ####[facility] [id number] [place] [address] [place] Differential cell count method Nom (Bld) Auto Normal [facility] Comment on above: Order Comment: Speci men Type: BLOOD SPECIMENOrdering Facility: [facility] Address: [address] [place] [address] Performed By: #### 5 7021-8 ####[facility] [id number] [place] [address] [place] Eosinophils (Bld) [#/Vol] 0.66 10*3/uL High <0.46 [facility] Comment on above: Order Comment: Speci men Type: BLOOD SPECIMENOrdering Facility: [facility] Address: [address] [place] [address] Performed By: #### 5 7021-8 ####[facility] [id number] [address] STATES OF [facility] Eosinophils/100 WBC (Bld) 9.3 % Normal [facility] Comment on above: Order Comment: Speci men Type: BLOOD SPECIMENOrdering Facility: [facility] Address: [address] [place] [address] Performed By: #### 5 7021-8 ####[facility] [id number] [address] [place] Erythrocyte distribution width (RBC) [Ratio] 13.2 % Normal 11.5-15.0 [facility] Comment on above: Order Comment: Speci men Type: BLOOD SPECIMENOrdering Facility: [facility] Address: [address] [place] [address] Performed By: #### 5 7021-8 ####[facility] [id number] [address] [place] Hematocrit (Bld) [Volume fraction] 30.7 % Low 39.0-51.0 [facility] Comment on above: Order Comment: Speci men Type: BLOOD SPECIMENOrdering Facility: [facility] Address: [address] [place] [address] Performed By: #### 5 7021-8 ####[facility] [id number] [address] [place] Hemoglobin (Bld) [Mass/Vol] 9.7 g/dL Low 13.0-17.0 [facility] Comment on above: Order Comment: Speci men Type: BLOOD SPECIMENOrdering Facility: [facility] Address: [address] [place] [address] Performed By: #### 5 7021-8 ####[facility] [id number] [address] [place] Immature granulocytes (Bld) [#/Vol] 10*3/uL Normal <0.10 [facility] Comment on above: Order Comment: Speci men Type: BLOOD SPECIMENOrdering Facility: [facility] Address: [address] [place] [address] Performed By: #### 5 7021-8 ####[facility] [id number] [address] STATES [facility] Immature granulocytes/100 WBC (Bld) 0.3 % Normal [facility] Comment on above: Order Comment: Speci men Type: BLOOD SPECIMENOrdering Facility: [facility] Address: [address] [place] [address] Performed By: #### 5 7021-8 ####[facility] [id number] [address] [place] Lymphocytes (Bld) [#/Vol] 1.53 10*3/uL Normal 1.00-4.00 [facility] Comment on above: Order Comment: Speci men Type: BLOOD SPECIMENOrdering Facility: [facility] Address: [address] [place] [address] Performed By: #### 5 7021-8 ####[facility] [id number] [address] Lymphocytes/100 WBC (Bld) 21.6 % Normal [facility] Comment on above: Order Comment: Speci men Type: BLOOD SPECIMENOrdering Facility: [facility] Address: [address] [place] [address] Performed By: #### 5 7021-8 ####[facility] [id number] [address] [place] MCH (RBC) [Entitic mass] 30.3 pg Normal 26.0-34.0 [facility] Comment on above: Order Comment: Speci men Type: BLOOD SPECIMENOrdering Facility: [facility] Address: [address] [place] [address] Performed By: #### 5 7021-8 ####[facility] [id number] [address] [place] OF [facility] MCHC (RBC) [Mass/Vol] 31.6 g/dL Normal 30.5-36.0 [facility] Comment on above: Order Comment: Speci men Type: BLOOD SPECIMENOrdering Facility: [facility] Address: [address] [place] [address] Performed By: #### 5 7021-8 ####[facility] [id number] [address] [place] MCV (RBC) [Entitic vol] 95.9 fL Normal 80.0-100.0 [facility] Comment on above: Order Comment: Speci men Type: BLOOD SPECIMENOrdering Facility: [facility] [facility] Address: [address] [place] [address] Performed By: #### 5 7021-8 ####[facility]ORATORYCLIA [id number] [address] [place] Monocytes (Bld) [#/Vol] 0.74 10*3/uL Normal <0.87 [facility] Comment on above: Order Comment: Speci men Type: BLOOD SPECIMENOrdering Facility: [facility] Address: [address] [place] [address] Performed By: #### 5 7021-8 ####[facility] LABORATORYCLIA [id number] [address] Monocytes/100 WBC (Bld) 10.5 % Normal [facility] Comment on above: Order Comment: Speci men Type: BLOOD SPECIMENOrdering Facility: [facility] Address: [address] [place] [address] Performed By: #### 5 7021-8 ####[facility] LABORATORYCLIA [id number] [address] [place] Neutrophils (Bld) [#/Vol] 4.03 10*3/uL Normal 1.45-7.50 [facility] Comment on above: Order Comment: Speci men Type: BLOOD SPECIMENOrdering Facility: [facility] Address: [address] [place] [address] Performed By: #### 5 7021-8 ####[facility]ORATORYCLIA [id number] [address] Neutrophils/100 WBC (Bld) 57.0 % Normal [facility] Comment on above: Order Comment: Speci men Type: BLOOD SPECIMENOrdering Facility: [facility] Address: [address] [place] [address] Performed By: #### 5 7021-8 ####[facility] LABORATORYCLIA [id number] [address] Nucleated RBC (Bld) [#/Vol] 10*3/uL Normal <0.01 [facility] Comment on above: Order Comment: Speci men Type: BLOOD SPECIMENOrdering Facility: [facility] Address: [address] [place] [address] Performed By: #### 5 7021-8 ####[facility] LABORATORYCLIA [id number] [address] Nucleated RBC/100 WBC (Bld) [Ratio] 0.0 /100 WBC Normal [facility] Comment on above: Order Comment: Speci men Type: BLOOD SPECIMENOrdering Facility: [facility] Address: [address] [place] [address] Performed By: #### 5 7021-8 ####[facility]ORATORYCLIA [id number] [address] Platelet mean volume (Bld) [Entitic vol] 10.3 fL Normal 9.0-12.7 [facility] Comment on above: Order Comment: Speci men Type: BLOOD SPECIMENOrdering Facility: [facility] Address: [address] [place] [address] Performed By: #### 5 7021-8 ####[facility]ORATORYCLIA [id number] [address] [place] Platelets (Bld) [#/Vol] 172 10*3/uL Normal 150-400 [facility] Comment on above: Order Comment: Speci men Type: BLOOD SPECIMENOrdering Facility: [facility] Address: [address] [place] [address] Performed By: #### 5 7021-8 ####[facility] LABORATORYCLIA [id number] [address] OF [facility] RBC (Bld) [#/Vol] 3.20 10*6/uL Low 4.20-6.00 [facility] Comment on above: Order Comment: Speci men Type: BLOOD SPECIMENOrdering Facility: [facility] Address: [address] [place] [address] Performed By: #### 5 7021-8 ####[facility]ATORYCLIA [id number] [address] WBC (Bld) [#/Vol] 7.07 10*3/uL Normal 3.70-11.00 [facility] Comment on above: Order Comment: Speci men Type: BLOOD SPECIMENOrdering Facility: [facility] Address: [address] [place] [address] Performed By: #### 5 7021-8 ####[facility]ORATORYCLIA [id number] [address] CNOVon 10-12-2024 CNOV Office Visit (ENAGST ) JAY BARBER ([id number]) 1995 M Date Time Provider Department 10/12/24 2:00 PM STEPHIE RAMIREZ During your visit today, we recorded the following information about you: Blood pressure Weight Height 136/80 39.8 kg 1.575 m Stephie Ramirez APRN.TUNNEL WORKER 10/14/2024 11:32 AM Addendum Subjective Date of [...] further kidney damage., 10/2022: prot/creat ratio in [facility], making appointment with nephrology, 07/2023: prot/creat ratio in [facility] Lipid Profile:10/2013: TC 111, HDL 42, LDL [...] results in care everywhere, 01/2020: labs in [facility], 07/2020; Alkaline Phosphatase 725 (45-117), ALT 77 (16-61), AST 163 (15-37), 12/2020: results in care everywhere., 03/2021: results In care everywhere, 12/2021: Alkaline Phosphatase 918 (38-113), bone percent 13.9%, liver percent 86.1 , 12/2022: liver function monitored by [facility] providers, 03/2023: in [facility], 08/2023: LFTS in [facility], 10/2023: LFTS in [facility], 03/2024: liver test in [facility], 10/2024: liver in [facility] Dilated Eye Exam: Patient educated to have ophthalmology visits at least once a year. 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 08/2013: New patient visit for Cystic Fibrosis related Diabetes [facility] to today's office visit. [...] but significan (more content not included)... Normal [facility] Comprehensive metabolic 2000 panelon 10-12-2024 Albumin [Mass/Vol] 2.4 g/dL Low 3.9-4.9 [facility] Comment on above: Order Comment: Kanu sainz Type: BLOOD SPECIMEN [facility] Address: [address] [place] [address] Performed By: #### 2 4323-8, 3015-3, #### [facility] CLIA [id number] [address] STATES OF [facility] ALP [Catalytic activity/Vol] 997 U/L High 38-113 [facility] Comment on above: Order Comment: Paruli alistair Type: BLOOD SPECIMEN [facility] Address: [address] [place] [address] Performed By: #### 2 4323-8, 3, #### [facility] CLIA [id number] [address] OF [facility] ALT With P-5'-P [Catalytic activity/Vol] 53 U/L Normal 10-54 [facility] Comment on above: Order Comment: Paruli alistair Type: BLOOD SPECIMEN [facility] Address: [address] [place] [address] Performed By: #### 2 4323-8, 3, #### [facility] CLIA [id number] [address] Anion gap [Moles/Vol] 6 mmol/L Low 8-15 [facility] Comment on above: Order Comment: Speci men Type: BLOOD SPECIMEN [facility] Address: [address] [place] [address] Performed By: #### 2 4323-8, 3, #### [facility] CLIA [id number] [address] [place] AST With P-5'-P [Catalytic activity/Vol] 82 U/L High 14-40 [facility] Comment on above: Order Comment: Speci men Type: BLOOD SPECIMEN [facility] Address: [address] [place] [address] Performed By: #### 2 4323-8, 3, #### [facility] CLIA [id number] [address] [place] Bilirubin [Mass/Vol] 0.5 mg/dL Normal 0.2-1.3 [facility] Comment on above: Order Comment: Speci men Type: BLOOD SPECIMEN [facility] Address: [address] [place] [address] Performed By: #### 2 4323-8, 3016-01, #### [facility] CLIA [id number] [address] [place] Calcium [Mass/Vol] 8.4 mg/dL Low 8.5-10.2 [facility] Comment on above: Order Comment: Speci men Type: BLOOD SPECIMEN [facility] Address: [address] [place] [address] Performed By: #### 2 4323-8, 3016-01, #### [facility] CLIA [id number] [address] [place] [address] [place] Chloride [Moles/Vol] 106 mmol/L Normal 98-107 [facility] Comment on above: Order Comment: Speci men Type: BLOOD SPECIMEN [facility] Address: [address] [place] [address] Performed By: #### 2 4323-8, 3, #### [facility] CLIA [id number] 1 [place] [address] [place] CO2 [Moles/Vol] 24 mmol/L Normal 22-30 [facility] Comment on above: Order Comment: Speci men Type: BLOOD SPECIMEN [facility] Address: [address] [place] [address] Performed By: #### 2 4323-8, 3, #### [facility] CLIA [id number] [address] [place] Creatinine [Mass/Vol] 1.24 mg/dL High 0.73-1.22 [facility] Comment on above: Order Comment: Specyolanda men Type: BLOOD SPECIMEN [facility] Address: [address] [place] [address] Performed By: #### 2 4323-8, 3016-01, #### [facility] CLIA [id number] [address] Creatinine and Glomerular filtration rate.predicted panel (S/P/Bld) 80 mL/min/1.73m??? Normal >=60 [facility] Comment on above: Order Comment: Specyolanda sainz Type: BLOOD SPECIMEN [facility] Address: [address] [place] [address] Result Comment: Janeth mated Glomerular Filtration Rate [...] Performed By: #### 2 4323-8, 3015-3, #### [facility] CLIA [id number] [address] [place] Glucose [Mass/Vol] 101 mg/dL High 74-99 [facility] Comment on above: Order Comment: Speci men Type: BLOOD SPECIMEN [facility] Address: [address] [place] [address] Result Comment: The [place] [employer] (ADA) provides guidance for cutoff [...] Standards of Medical Care in Diabetes 2016, [place] [employer]. Diabetes Care. 2016.39(Suppl 1). Performed By: #### 2 4323-8, 3016-01, #### [facility] CLIA [id number] 1 [place] [address] [place] Potassium [Moles/Vol] 5.4 mmol/L High 3.7-5.1 [facility] Comment on above: Order Comment: Speci men Type: BLOOD SPECIMEN [facility] Address: [address] [place] [address] Performed By: #### 2 4323-8, 3016-01, #### [facility] CLIA [id number] 1 [place] [address] [place] Protein [Mass/Vol] 7.4 g/dL Normal 6.3-8.0 [facility] Comment on above: Order Comment: Speci men Type: BLOOD SPECIMEN [facility] Address: [address] [place] [address] Performed By: #### 2 4323-8, 3016-01, #### [facility] CLIA [id number] 1 [place] [address] [place] Sodium [Moles/Vol] 136 mmol/L Normal 136-144 [facility] Comment on above: Order Comment: Speci men Type: BLOOD SPECIMEN [facility] Address: [address] [place] [address] Performed By: #### 2 4323-8, 3016-3, 68350-5 #### [facility] CLIA [id number] 1 [place] [phone] [place] [facility] Urea nitrogen [Mass/Vol] 22 mg/dL Normal 9-24 [facility] Comment on above: Order Comment: Speci men Type: BLOOD SPECIMEN [facility] Address: [address] [place] [address] Performed By: #### 2 4323-8, 3016-3, 68693-0 #### [facility] CLIA [id number] 1 [place] [phone] [facility] HEMOGLOBIN A1C (POC)on 10-12 HbA1c (Bld) [Mass fraction] 6.3 % Abnormal 4.3 - 5.6 % [facility] Comment on above: Location:[facility], [address] [place] [address] Point of care (POC) Hemoglobin A1c (HGBA1C) [...] specific diabetes management situations: The POC device manager culinary provides a normal range of 4.2% to 6.5% for the HGBA1C POC test. However, the [place] [employer] guidelines indicate that patients with [...] Interpretation and review of laboratory results Abnormal [facility] Magnesium SerPl-mCncon 10-12 Magnesium [Mass/Vol] 1.8 mg/dL Normal 1.7-2.3 [facility] Comment on above: Order Comment: Speci men Type: BLOOD SPECIMEN [facility] Address: [facility] [place] [phone] Performed By: #### 2 4323-8, 3016-3, #### [facility] CLIA [id number] [address] [place] [phone] [facility] THYROID STIMULATING HORMONEo n 10-12-2024 TSH Qn 1.810 m[IU]/L [facility] TSH Qnon 10-12-2024 Interpretation and review of laboratory results Normal [facility] TSH SerPl-aCncon 10-12-2024 TSH Qn 1.810 m[IU]/L Normal 0.270-4.200 [facility] Comment on above: Order Comment: Specyolanda sainz Type: BLOOD SPECIMENOrdering Facility: [facility] Address: [facility] [place] [phone] Performed By: #### 2 4323-8, 3, ####[facility]ORYCLIA [id number] [address] STATES OF [facility] SPIROMETRY BASELINE ONLYon 1 FEF25% PRE (L/S) 0.38 L/S [facility] TLC57-47% LLN (L/S) 2.24 L/S Raulito [facility] AUQ54-51% PRE (L/S) 0.17 L/S Raulito land [facility] XVU52-95% PREDICTED (L/S) 3.63 L/S [facility] FEF75% LLN (L/S) 0.74 L[facility]S [facility] FEF75% PRE (L/S0 0.10 [facility] FEF75% PREDICTED (L/S) 1.43 L/S [facility] FEF75% ULN (L/S) 2.56 L/S [facility] d [facility] FET PRE (S) 15.[address] [facility] FEV1 LLN (L) 2.[address] [facility] FEV1 PRE (L) 0.[address] [facility] FEV1 PREDICTED (L) 3.07 L [facility] FEV1 ULN (L) 3.[address] [facility] FEV1/FVC LLN (%) 75 % [facility] FEV1/FVC PRE (%) 31 % [facility] FEV1/FVC PREDICTED (%) 85 % [facility] FVC LLN (L) 2.[address] [facility] FVC PRE (L) 2.[address] [facility] FVC PREDICTED (L) 3.58 L [facility] FVC ULN (L) 4.[address] [facility] PEF LLN (L/S) 6.69 L/S [facility] PEF PRE (L/S) 3.44 L/S 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 Start of test and EOFE criteria met. //SRB PULMONARY FUNCTION LAB [facility] CBC W/Diff, Automatedon 10-0 Absolute Neut Normal 2.0-7.[address] [facility] Comment on above: Result Comment: Canc elled via OM: Order cancelled - Patient discharged Performed By: #### L 100.0100, L500.3400, L500.4050 #### [facility] [address] [facility] [address] HCT Normal 40-[address] [facility] Comment on above: Result Comment: Canc elled via OM: Order cancelled - Patient discharged Performed By: #### L 100.0100, L500.3400, L500.4050 #### [facility] [address] [facility] [address] HGB Normal 13.0-16.[address] [facility] Comment on above: Result Comment: Canc elled via OM: Order cancelled - Patient discharged Performed By: #### L 100.0100, L500.3400, L500.4050 #### [facility] [address] [place], [address] MCH Normal 27.0-32.[address] [facility] Comment on above: Result Comment: Canc elled via OM: Order cancelled - Patient discharged Performed By: #### L 100.0100, L500.3400, L500.4050 #### [facility] [address] [place], [address] MCHC Normal 32-[address] [facility] Comment on above: Result Comment: Canc elled via OM: Order cancelled - Patient discharged Performed By: #### L 100.0100, L500.3400, L500.4050 #### [facility] [address] [place], [address] MCV Normal 80-[address] [facility] Comment on above: Result Comment: Canc elled via OM: Order cancelled - Patient discharged Performed By: #### L 100.0100, L500.3400, L500.4050 #### [facility] [address] [place], [address] NEUT% Normal 47-[address] [facility] Comment on above: Result Comment: Canc elled via OM: Order cancelled - Patient discharged Performed By: #### L 100.0100, L500.3400, L500.4050 #### [facility] [address] [place], [address] PLT Normal 150-[address] [facility] Comment on above: Result Comment: Canc elled via OM: Order cancelled - Patient discharged Performed By: #### L 100.0100, L500.3400, L500.4050 #### [facility] [address] [place], [address] RBC Normal 4.6-6.[address] [facility] Comment on above: Result Comment: Canc elled via OM: Order cancelled - Patient discharged Performed By: #### L 100.0100, L500.3400, L500.4050 #### [facility] [address] [place], [address] RDW CV Normal 11.6-14.[address] [facility] Comment on above: Result Comment: Canc elled via OM: Order cancelled - Patient discharged Performed By: #### L 100.0100, L500.3400, L500.4050 #### [facility] [address] [place], [address] RDW SD Normal 35.1-43.[address] [facility] Comment on above: Result Comment: Canc elled via OM: Order cancelled - Patient discharged Performed By: #### L 100.0100, L500.3400, L500.4050 #### [facility] [address] [place], [address] WBC Normal 4.4-11.[address] [facility] Comment on above: Result Comment: Canc elled via OM: Order cancelled - Patient discharged Performed By: #### L 100.0100, L500.3400, L500.4050 #### [facility] [address] [place], [address] Comprehensive Metabolic Prof ilon 09-03-2024 ALB Normal 3.2-5.[address] [facility] Comment on above: Result Comment: Canc elled via OM: Order cancelled - Patient discharged Performed By: #### L 100.0100, L500.3400, L500.4050 #### [facility] [address] [place], [address] ALK P Normal 45-[address] [facility] Comment on above: Result Comment: Canc elled via OM: Order cancelled - Patient discharged Performed By: #### L 100.0100, L500.3400, L500.4050 #### [facility] [address] [place], [address] ALT Normal 16-[address] [facility] Comment on above: Result Comment: Canc elled via OM: Order cancelled - Patient discharged Performed By: #### L 100.0100, L500.3400, L500.4050 #### [facility] [address] [place], [address] AST Normal 15-[address] [facility] Comment on above: Result Comment: Canc elled via OM: Order cancelled - Patient discharged Performed By: #### L 100.0100, L500.3400, L500.4050 #### [facility] [address] [place], [address] BUN Normal 7-[address] [facility] Comment on above: Result Comment: Canc elled via OM: Order cancelled - Patient discharged Performed By: #### L 100.0100, L500.3400, L500.4050 #### [facility] [address] [place], [address] BUN/CRE Normal 10-[address] [facility] Comment on above: Result Comment: Canc elled via OM: Order cancelled - Patient discharged Performed By: #### L 100.0100, L500.3400, L500.4050 #### [facility] [address] [place], [address] CA,Total Normal 8.5-10.[address] [facility] Comment on above: Result Comment: Canc elled via OM: Order cancelled - Patient discharged Performed By: #### L 100.0100, L500.3400, L500.4050 #### [facility] [address] [place], [address] CL Normal 98-[address] [facility] Comment on above: Result Comment: Canc elled via OM: Order cancelled - Patient discharged Performed By: #### L 100.0100, L500.3400, L500.4050 #### [facility] [address] [place], [address] CO2 Normal 21.0-32.[address] [facility] Comment on above: Result Comment: Canc elled via OM: Order cancelled - Patient discharged Performed By: #### L 100.0100, L500.3400, L500.4050 #### [facility] [address] [place], [address] CREAT,SERUM Normal 0.70-1.[address] [facility] Comment on above: Result Comment: Canc elled via OM: Order cancelled - Patient discharged Performed By: #### L 100.0100, L500.3400, L500.4050 #### [facility] [address] [place], [address] EST GFR Normal >[address] [facility] Comment on above: Result Comment: Canc elled via OM: Order cancelled - Patient discharged Performed By: #### L 100.0100, L500.3400, L500.4050 #### [facility] [address] [place], [address] EST GFR - AA Normal >[address] [facility] Comment on above: Result Comment: Canc elled via OM: Order cancelled - Patient discharged Performed By: #### L 100.0100, L500.3400, L500.4050 #### [facility] [address] [place], [address] GAP Normal 5-[address] [facility] Comment on above: Result Comment: Canc elled via OM: Order cancelled - Patient discharged Performed By: #### L 100.0100, L500.3400, L500.4050 #### [facility] [address] [place], [address] GLU Normal 74-[address] [facility] Comment on above: Result Comment: Canc elled via OM: Order cancelled - Patient discharged Performed By: #### L 100.0100, L500.3400, L500.4050 #### [facility] [address] [place], [address] Potassium Normal 3.5-5.[address] [facility] Comment on above: Result Comment: Canc elled via OM: Order cancelled - Patient discharged Performed By: #### L 100.0100, L500.3400, L500.4050 #### [facility] [address] [place], [address] T BILI Normal 0.20-1.[address] [facility] Comment on above: Result Comment: Canc elled via OM: Order cancelled - Patient discharged Performed By: #### L 100.0100, L500.3400, L500.4050 #### [facility] [address] [place], [address] T PROT Normal 6.4-8.[address] [facility] Comment on above: Result Comment: Canc elled via OM: Order cancelled - Patient discharged Performed By: #### L 100.0100, L500.3400, L500.4050 #### [facility] [facility] [address] [place], [address] Comprehensive Metabolic Profil Normal 136-[address] [facility] Comment on above: Result Comment: Canc elled via OM: Order cancelled - Patient discharged Performed By: #### L 100.0100, L500.3400, L500.4050 #### [facility] [address] [place], [address] Basic Metabolic Profile (BMP )on 09-02-2024 BUN/CRE 17.4 RATIO Normal 10-[address] [facility] Comment on above: Performed By: #### L 100.0100, L500.3400, L500.4050 #### [facility] [address] [place], [address] CA,Total 7.7 mg/dL Low 8.5-10.[address] [facility] Comment on above: Performed By: #### L 100.0100, L500.3400, L500.4050 #### [facility] [address] [place], [address] Chloride [Moles/Vol] 108 mmol/L High 98-107 [facility] Comment on above: Performed By: #### L 100.0100, L500.3400, L500.4050 #### [facility] [address] [place], [address] CO2 [Moles/Vol] 27.0 mmol/L Normal 21.0-32.[address] [facility] Comment on above: Performed By: #### L 100.0100, L500.3400, L500.4050 #### [facility] [address] [place], [address] Creatinine [Mass/Vol] 1.09 mg/dL Normal 0.70-1.30 [facility] Comment on above: Result Comment: The validity of the calculated GFR GFRAA in patients over 70 years has not been determined. Clinical correlation is essential. Performed By: #### L 100.0100, L500.3400, L500.4050 #### [facility] [address] [place], [address] ECRCL 66.39 ml/min Normal [facility] Comment on above: Performed By: #### L 100.0100, L500.3400, L500.4050 #### [facility] [address] [place], [address] EST GFR - AA 101 mL/min Normal >[address] [facility] Comment on above: Result Comment: Afri can Faroese GFR Calc Performed By: #### L 100.0100, L500.3400, L500.4050 #### [facility] [address] [place], [address] GAP 2 Low 5-[address] [facility] Comment on above: Performed By: #### L 100.0100, L500.3400, L500.4050 #### [facility] [address] [place], [address] GFR/1.73 sq M.predicted among non-blacks MDRD (S/P/Bld) [Vol rate/Area] 84 mL/min/{1.73_m2} Normal >[address] [facility] Comment on above: Result Comment: Non- GFR Calc Performed By: #### L 100.0100, L500.3400, L500.4050 #### [facility] [address] [place], [address] Glucose [Mass/Vol] 102 mg/dL Normal 74-106 [facility] Comment on above: Result Comment: Fast ing Glucose result from 100 to 125 mg/dL suggests IMPAIRED HOMEOSTASIS per A.D.A. criteria. Performed By: #### L 100.0100, L500.3400, L500.4050 #### [facility] [address] [place], [address] Potassium [Moles/Vol] 4.7 mmol/L Normal 3.5-5.1 [facility] Comment on above: Performed By: #### L 100.0100, L500.3400, L500.4050 #### [facility] [address] [place], [address] Sodium [Moles/Vol] 137 mmol/L Normal 136-145 [facility] Comment on above: Performed By: #### L 100.0100, L500.3400, L500.4050 #### [facility] [address] [place], [address] Urea nitrogen [Mass/Vol] 19 mg/dL High 7-[address] [facility] Comment on above: Performed By: #### L 100.0100, L500.3400, L500.4050 #### [facility] [address] [place], [address] Bedside Glucoseon 09-02-2024 FINGERSTICK GLU 161 mg/dL High 74-[address] [facility] Comment on above: Result Comment: PO GEMENT OF PATIENT CARE PER NURSING PROTOCOL Performed By: #### L 501.080 #### [facility] [address] [place], [address] FINGERSTICK GLU 139 mg/dL High 74-[address] [facility] Comment on above: Result Comment: PO GEMENT OF PATIENT CARE PER NURSING PROTOCOL Performed By: #### L 100.0100, L500.3400, L500.4050 #### [facility] [address] [place], [address] FINGERSTICK GLU 112 mg/dL High 74-[address] [facility] Comment on above: Result Comment: PO GEMENT OF PATIENT CARE PER NURSING PROTOCOL Performed By: #### L 100.0100, L500.3400, L500.4050 #### [facility] [address], [address] Discharge Instructionon 10-0 Discharge Instruction [facility] Medical Records Department [address] [place] [address] Instructions for Home/Discharge Instructions 09/02/24 1014 MR#: [id number] Acct: [id number] Name: JAY BARBER Rep #: [id number] : 1995 29 From: Anahi Wilder MD [...] monitor potassium levels Discharge Orders/Prescriptions Prescriptions: Continued bsscyq-xbpkzajr-xycyc se 1 EACH capsule,delayed release(DR/EC) 2 - [...] mg tablet 25 mg PO BID (DME) Indicative SoftwareTouch Verio test strips Strip 1 strip MISCELLANEOUS [...] Cook DO; No Primary Care Physician Signed [facility] 12 Lead EKGon 09-01-2024 12 Lead EKG [facility] Cardiovascular Services [address] [place] [address] 12 Lead EKG 08/31/24 1349 MR#: [id number] Acct: [id number] Name: JAY BARBER Rep #: [id number] : 1995 29 From: Rosalino Bertrand MD Attending Dr: Dr. Anahi Wilder MD Status: TODD Rapp IN Ordering Dr: Niko Cook DO Date: 09/01/24 Location: [facility] Sex: M C Admitted: 09/01/24 Test [...] ECG Confirmed by CORDELL RUEDA, ROSALINO ([id number]), fan mail editor BE FARAH ([id number]) on 09/02/2024 1:20:05 PM Referred By: Confirmed By:ROSALINO BERTRAND MD 09/02/24 1320 Date Rosalino Bertrand MD CC: Dr. Niko Cook DO; Dr. Anahi Wilder MD; No Primary Care Physician Signed [facility] Basic Metabolic Profile (BMP )on 09-01-2024 BUN/CRE 11.1 RATIO Normal 09-[address] [facility] Comment on above: Performed By: #### L 100.0100, L500.3400, L500.4050 #### [facility] [address] [facility] [place], [address] CA,Total 8.0 mg/dL Low 8.5-10.[address] [facility] Comment on above: Performed By: #### L 100.0100, L500.3400, L500.4050 #### [facility] [address] [place], [address] Chloride [Moles/Vol] 110 mmol/L High 98-107 [facility] Comment on above: Performed By: #### L 100.0100, L500.3400, L500.4050 #### [facility] [address] [place], [address] CO2 [Moles/Vol] 27.0 mmol/L Normal 21.0-32.[address] [facility] Comment on above: Performed By: #### L 100.0100, L500.3400, L500.4050 #### [facility] [address] [place], [address] Creatinine [Mass/Vol] 1.08 mg/dL Normal 0.70-1.30 [facility] Comment on above: Result Comment: The validity of the calculated GFR GFRAA in patients over 70 years has not been determined. Clinical correlation is essential. Performed By: #### L 100.0100, L500.3400, L500.4050 #### [facility] [address] [place], [address] ECRCL 67.00 ml/min Normal [facility] Comment on above: Performed By: #### L 100.0100, L500.3400, L500.4050 #### [facility] [address] [place], [address] EST GFR - AA 103 mL/min Normal >[address] [facility] Comment on above: Result Comment: Afri can Faroese GFR Calc Performed By: #### L 100.0100, L500.3400, L500.4050 #### [facility] [address] [place], [address] GAP 1 Low 5-[address] [facility] Comment on above: Performed By: #### L 100.0100, L500.3400, L500.4050 #### [facility] [address] [place], [address] GFR/1.73 sq M.predicted among non-blacks MDRD (S/P/Bld) [Vol rate/Area] 85 mL/min/{1.73_m2} Normal >[address] [facility] Comment on above: Result Comment: Non- GFR Calc Performed By: #### L 100.0100, L500.3400, L500.4050 #### [facility] [address] [place], [address] Glucose [Mass/Vol] 209 mg/dL High 74-106 [facility] Comment on above: Result Comment: Gluc ose result greater than or equal to 200 mg/dL suggests DIABETES MELLITUS per A.D.A. criteria. Performed By: #### L 100.0100, L500.3400, L500.4050 #### [facility] [address] [place], [address] Potassium [Moles/Vol] 4.9 mmol/L Normal 3.5-5.1 [facility] Comment on above: Performed By: #### L 100.0100, L500.3400, L500.4050 #### [facility] [address] [place], [address] Sodium [Moles/Vol] 138 mmol/L Normal 136-145 [facility] Comment on above: Performed By: #### L 100.0100, L500.3400, L500.4050 #### [facility] [address] [place], [address] Urea nitrogen [Mass/Vol] 12 mg/dL Normal 7-[address] [facility] Comment on above: Performed By: #### L 100.0100, L500.3400, L500.4050 #### [facility] [address] [place], [address] BUN/CRE 14.4 RATIO Normal 10-[address] [facility] Comment on above: Performed By: #### L 100.0100, L500.3400, L500.4050 #### [facility] [address] [place], [address] CA,Total 7.8 mg/dL Low 8.5-10.[address] [facility] Comment on above: Performed By: #### L 100.0100, L500.3400, L500.4050 #### [facility] [address] [place], [address] Chloride [Moles/Vol] 114 mmol/L High 98-107 [facility] Comment on above: Performed By: #### L 100.0100, L500.3400, L500.4050 #### [facility] [address] [place], [address] CO2 [Moles/Vol] 22.0 mmol/L Normal 21.0-32.[address] [facility] Comment on above: Performed By: #### L 100.0100, L500.3400, L500.4050 #### [facility] [address] [place], [address] Creatinine [Mass/Vol] 0.84 mg/dL Normal 0.70-1.30 [facility] Comment on above: Result Comment: The validity of the calculated GFR GFRAA in patients over 70 years has not been determined. Clinical correlation is essential. Performed By: #### L 100.0100, L500.3400, L500.4050 #### [facility] [address] [place], [address] ECRCL 86.15 ml/min Normal [facility] Comment on above: Performed By: #### L 100.0100, L500.3400, L500.4050 #### [facility] [address] [place], [address] EST GFR - AA 138 mL/min Normal >[address] [facility] Comment on above: Result Comment: Afri can Faroese GFR Calc Performed By: #### L 100.0100, L500.3400, L500.4050 #### [facility] [address] [place], [address] GAP 3 Low 5-[address] [facility] Comment on above: Performed By: #### L 100.0100, L500.3400, L500.4050 #### [facility] [address] [place], [address] GFR/1.73 sq M.predicted among non-blacks MDRD (S/P/Bld) [Vol rate/Area] 114 mL/min/{1.73_m2} Normal >[address] [facility] Comment on above: Result Comment: Non- GFR Calc Performed By: #### L 100.0100, L500.3400, L500.4050 #### [facility] [address] [place], [address] Glucose [Mass/Vol] 119 mg/dL High 74-106 [facility] Comment on above: Result Comment: Fast ing Glucose result from 100 to 125 mg/dL suggests IMPAIRED HOMEOSTASIS per A.D.A. criteria. Performed By: #### L 100.0100, L500.3400, L500.4050 #### [facility] [address] [place], [address] Potassium [Moles/Vol] 5.4 mmol/L High 3.5-5.1 [facility] Comment on above: Performed By: #### L 100.0100, L500.3400, L500.4050 #### [facility] [address] [place], [address] Sodium [Moles/Vol] 138 mmol/L Normal 136-145 [facility] Comment on above: Performed By: #### L 100.0100, L500.3400, L500.4050 #### [facility] [address] [place], [address] Urea nitrogen [Mass/Vol] 12 mg/dL Normal 7-[address] [facility] Comment on above: Performed By: #### L 100.0100, L500.3400, L500.4050 #### [facility] [address] [place], [address] Bedside Glucoseon 09-01-2024 FINGERSTICK GLU 161 mg/dL High 74-[address] [facility] Comment on above: Result Comment: PO GEMENT OF PATIENT CARE PER NURSING PROTOCOL Performed By: #### L 100.0100, L500.3400, L500.4050 #### [facility] [address] [place], [address] FINGERSTICK GLU 189 mg/dL High 74-[address] [facility] Comment on above: Result Comment: PO GEMENT OF PATIENT CARE PER NURSING PROTOCOL Performed By: #### L 501.080 #### [facility] [address] [place], [address] FINGERSTICK GLU 124 mg/dL High 74-[address] [facility] Comment on above: Result Comment: PO GEMENT OF PATIENT CARE PER NURSING PROTOCOL Performed By: #### L 501.080 #### [facility] [address] [place], [address] FINGERSTICK GLU 128 mg/dL High 74-[address] [facility] Comment on above: Result Comment: PO GEMENT OF PATIENT CARE PER NURSING PROTOCOL Performed By: #### L 100.0100, L500.3400, L500.4050 #### [facility] [address] [place], [address] CTA Chest W/WO Contraston CTA Chest W/WO Contrast [facility] Imaging Services [address] [place], [place] [address] CTA Chest W/WO Contrast MR#: [id number] Acct: [id number] Name: JAY BARBER Rep #: [id number] : 1995 M 29 From: Hang Tillman MD PCP: Care Physician,No Primary Status: ADM IN Study: CTA Chest W/WO Contrast Date of Exam: 09/01/24 Exam# [id number] Ordering Dr: Anahi Wilder MD [id number] STUDY: CTA CHEST REASON FOR EXAM: Male, [...] Anahi Wilder MD; No Primary Care Physician Creative/Art Director: Signed Normal [facility] D-Dimer Quantitative (DVT/PE )on 09-01-2024 D-DIMER QUANT 1.67 FEU/ug/m Invalid Interpretation Code 0.27-0.[address] [facility] Comment on above: Result Comment: D-Di arnold ELEVATED (>0.49): Additional studies and clinical assessments are indicated to conclude diagnosis of: Deep Vein Thrombosis (DVT) or Pulmonary Embolism (PE) CRITICAL VALUE CALLED TO EDWARDO MORENO 09/01/24 1719 Andreia Zelaya. RESULTS READ BACK BY SAME. Performed By: #### L 100.0100, L500.3400, L500.4050 #### [facility] [address] [place], [address] 12 Lead EKGon 08-31-2024 12 Lead EKG [facility] Cardiovascular Services [address] [place] [address] 12 Lead EKG 09/01/24 0542 MR#: [id number] Acct: [id number] Name: JAY BARBER Rep #: [id number] : 1995 29 From: Rosalino Bertrand MD [...] IS UNCONFIRMED Confirmed by ROSALINO BERTRAND MD ([id number]), fan mail editor BE FARAH ([id number]) on 09/02/2024 1:13:35 PM Referred By: Confirmed By:ROSALINO BERTRAND MD 09/02/24 1313 Date Rosalino Bertrand MD CC: Dr. Anahi Wilder MD; Dr. Brady Bal DO; No Primary Care Physician Signed Normal [facility] 12 Lead EKG [facility] Services [address] [place] [address] 12 Lead EKG 08/31/24 1731 MR#: [id number] Acct: [id number] Name: JAY BARBER Rep #: [id number] : 1995 29 From: Rosalino Bertrand MD Attending Dr: Dr. Anahi Wilder MD Status: DI S IN Ordering Dr: Brady Bal DO Date: 08/31/24 Location: [facility] Sex: M C Admitted: 09/01/24 Test Reason : MED CHANGE/REPEAT Blood Pressure : / mmHG Vent. Rate : 082 BPM Atrial Rate : 082 BPM P-R Int : 172 ms QRS Dur : 086 ms QT Int : 364 ms P-R-T Axes : 070 080 075 degrees QTc Int : 425 ms Normal sinus rhythm Normal ECG Confirmed by ROSALINO BERTRAND MD ([id number]), fan mail editor BE FARAH ([id number]) on 09/02/2024 1:19:50 PM Referred By: Confirmed By:ROSALINO BERTRAND MD 09/02/24 131 Date Rosalino Bertrand MD CC: Dr. Anahi Wilder MD; Dr. Brady Bla DO; No Primary Care Physician Signed Normal [facility] Basic Metabolic Profile (BMP )on 08-31-2024 BUN/CRE 12.6 RATIO Normal 10-[address] [facility] Comment on above: Performed By: #### L 100.0100, L500.3400, L500.4050 #### [facility] [address] [place], [address] CA,Total 8.7 mg/dL Normal 8.5-10.[address] [facility] Comment on above: Performed By: #### L 100.0100, L500.3400, L500.4050 #### [facility] [address] [place], [address] Chloride [Moles/Vol] 113 mmol/L High 98-107 [facility] Comment on above: Performed By: #### L 100.0100, L500.3400, L500.4050 #### [facility] [address] [place], [address] CO2 [Moles/Vol] 20.0 mmol/L Low 21.0-32.[address] [facility] Comment on above: Performed By: #### L 100.0100, L500.3400, L500.4050 #### [facility] [address] [place], [address] Creatinine [Mass/Vol] 0.95 mg/dL Normal 0.70-1.30 [facility] Comment on above: Result Comment: The validity of the calculated GFR GFRAA in patients over 70 years has not been determined. Clinical correlation is essential. Performed By: #### L 100.0100, L500.3400, L500.4050 #### [facility] [address] [place], [address] ECRCL 65.34 ml/min Normal [facility] Comment on above: Performed By: #### L 100.0100, L500.3400, L500.4050 #### [facility] [address] [place], [address] EST GFR - AA 119 mL/min Normal >[address] [facility] Comment on above: Result Comment: Afri can Faroese GFR Calc Performed By: #### L 100.0100, L500.3400, L500.4050 #### [facility] [address] [place], [address] GAP 1 Low 5-[address] [facility] Comment on above: Performed By: #### L 100.0100, L500.3400, L500.4050 #### [facility] [address] [place], [address] GFR/1.73 sq M.predicted among non-blacks MDRD (S/P/Bld) [Vol rate/Area] 98 mL/min/{1.73_m2} Normal >[address] [facility] Comment on above: Result Comment: Non- GFR Calc Performed By: #### L 100.0100, L500.3400, L500.4050 #### [facility] [address] [place], [address] Glucose [Mass/Vol] 269 mg/dL High 74-106 [facility] Comment on above: Result Comment: Gluc ose result greater than or equal to 200 mg/dL suggests DIABETES MELLITUS per A.D.A. criteria. Performed By: #### L 100.0100, L500.3400, L500.4050 #### [facility] [address] [place], [address] Potassium [Moles/Vol] 5.4 mmol/L High 3.5-5.1 [facility] Comment on above: Performed By: #### L 100.0100, L500.3400, L500.4050 #### [facility] [address] [place], [address] Sodium [Moles/Vol] 134 mmol/L Low 136-145 [facility] Comment on above: Performed By: #### L 100.0100, L500.3400, L500.4050 #### [facility] [address] [place], [address] Urea nitrogen [Mass/Vol] 12 mg/dL Normal 7-[address] [facility] Comment on above: Performed By: #### L 100.0100, L500.3400, L500.4050 #### [facility] [address] [place], [address] Bedside Glucoseon 08-31-2024 FINGERSTICK GLU 176 mg/dL High 74-[address] [facility] Comment on above: Result Comment: PO MARIJA OF PATIENT CARE PER NURSING PROTOCOL Performed By: #### L 100.0100, L500.3400, L500.4050 #### [facility] [address] [place], [address] FINGERSTICK GLU 25 mg/dL Invalid Interpretation Code 74-[address] [facility] Comment on above: Result Comment: Dr Avelina helms Followed MANAGEMENT OF PATIENT CARE PER NURSING PROTOCOL Performed By: #### L 501.080 #### [facility] [address] [place], [address] CBC W/Diff, Automatedon 10-0 Absolute Lymph 1.45 X10 3/uL Normal 0.83-4.[address] [facility] Comment on above: Performed By: #### L 100.0100, L500.3400, L500.4050 #### [facility] [address] [place], [address] Absolute Neut 4.0 X10 3/uL Normal 2.0-7.[address] [facility] Comment on above: Performed By: #### L 100.0100, L500.3400, L500.4050 #### [facility] [address] [place], [address] Basophils/100 WBC (Bld) 1.5 % High 0-[address] [facility] Comment on above: Performed By: #### L 100.0100, L500.3400, L500.4050 #### [facility] [address] [place], [address] Eosinophils/100 WBC (Bld) 7.1 % High 0-[address] [facility] Comment on above: Performed By: #### L 100.0100, L500.3400, L500.4050 #### [facility] [address] [place], [address] Erythrocyte distribution width (RBC) [Ratio] 18.3 % High 11.6-14.[address] [facility] Comment on above: Performed By: #### L 100.0100, L500.3400, L500.4050 #### [facility] [address] [place], [address] Hematocrit (Bld) [Volume fraction] 28.7 % Low 40-[address] [facility] Comment on above: Performed By: #### L 100.0100, L500.3400, L500.4050 #### [facility] [address] [place], [address] Hemoglobin (Bld) [Mass/Vol] 9.1 g/dL Low 13.0-16.[address] [facility] Comment on above: Performed By: #### L 100.0100, L500.3400, L500.4050 #### [facility] [address] [place], [address] IG% 0.300 Normal 0.0-0.[address] [facility] Comment on above: Result Comment: IG% - Immature Granulocytes (promyelocytes, myelocytes and metamyelocytes) > 1% indicates that a LEFT SHIFT is Present. Performed By: #### L 100.0100, L500.3400, L500.4050 #### [facility] [address] [place], [address] Lymphocytes/100 WBC (Bld) 21.9 % Normal 19-[address] [facility] Comment on above: Performed By: #### L 100.0100, L500.3400, L500.4050 #### [facility] [address] [place], [address] MCH (RBC) [Entitic mass] 29.4 pg Normal 27.0-32.[address] [facility] Comment on above: Performed By: #### L 100.0100, L500.3400, L500.4050 #### [facility] [address] [place], [address] MCHC (RBC) [Mass/Vol] 31.7 g/dL Low 32-36 [facility] Comment on above: Performed By: #### L 100.0100, L500.3400, L500.4050 #### [facility] [address] [place], [address] MCV (RBC) [Entitic vol] 92.9 fL Normal 80-[address] [facility] Comment on above: Performed By: #### L 100.0100, L500.3400, L500.4050 #### [facility] [address] [place], [address] Monocytes/100 WBC (Bld) 9.4 % Normal 0-[address] [facility] [facility] [facility] Comment on above: Performed By: #### L 100.0100, L500.3400, L500.4050 #### [facility] [address] [place], [address] Neutrophils/100 WBC (Bld) 59.8 % Normal 47-[address] [facility] Comment on above: Performed By: #### L 100.0100, L500.3400, L500.4050 #### [facility] [address] [place], [address] Nucleated RBC (Bld) [#/Vol] 0 10*3/uL Normal 0-[address] [facility] Comment on above: Performed By: #### L 100.0100, L500.3400, L500.4050 #### [facility] [address] [place], [address] Platelet mean volume (Bld) [Entitic vol] 9.2 fL Normal 6.2-12.[address] [facility] Comment on above: Performed By: #### L 100.0100, L500.3400, L500.4050 #### [facility] [address] [place], [address] Platelets (Bld) [#/Vol] 226 10*3/uL Normal 150-[address] [facility] Comment on above: Performed By: #### L 100.0100, L500.3400, L500.4050 #### [facility] [address] [place], [address] RBC (Bld) [#/Vol] 3.09 10*6/uL Low 4.6-6.2 [facility] Comment on above: Performed By: #### L 100.0100, L500.3400, L500.4050 #### [facility] [address] [place], [address] RDW SD 62.3 fl High 35.1-43.[address] [facility] Comment on above: Performed By: #### L 100.0100, L500.3400, L500.4050 #### [facility] [address] [place], [address] WBC (Bld) [#/Vol] 6.6 10*3/uL Normal 4.4-11.0 [facility] Comment on above: Performed By: #### L 100.0100, L500.3400, L500.4050 #### [facility] [address] [place], [address] Comprehensive Metabolic Prof ilon 08-31-2024 Albumin/Globulin [Mass ratio] 0.3 {ratio} Low 0.9-2.[address] [facility] Comment on above: Performed By: #### L 100.0100, L500.3400, L500.4050 #### [facility] [address] [place], [address] BUN/CRE 12.6 RATIO Normal 10-[address] [facility] Comment on above: Performed By: #### L 100.0100, L500.3400, L500.4050 #### [facility] [address] [place], [address] CA,Total 7.9 mg/dL Low 8.5-10.[address] [facility] Comment on above: Performed By: #### L 100.0100, L500.3400, L500.4050 #### [facility] [address] [place], [address] Chloride [Moles/Vol] 115 mmol/L High 98-107 [facility] Comment on above: Performed By: #### L 100.0100, L500.3400, L500.4050 #### [facility] [address] [place], [address] CO2 [Moles/Vol] 24.0 mmol/L Normal 21.0-32.[address] [facility] Comment on above: Performed By: #### L 100.0100, L500.3400, L500.4050 #### [facility] [address] [place], [address] Creatinine [Mass/Vol] 1.03 mg/dL Normal 0.70-1.30 [facility] Comment on above: Result Comment: The validity of the calculated GFR GFRAA in patients over 70 years has not been determined. Clinical correlation is essential. Performed By: #### L 100.0100, L500.3400, L500.4050 #### [facility] [address] [place], [address] ECRCL 60.27 ml/min Normal [facility] Comment on above: Performed By: #### L 100.0100, L500.3400, L500.4050 #### [facility] [address] [place], [address] EST GFR - AA 108 mL/min Normal >[address] [facility] Comment on above: Result Comment: Afri can Faroese GFR Calc Performed By: #### L 100.0100, L500.3400, L500.4050 #### [facility] [address] [place], [address] GAP 0 Low 5-[address] [facility] Comment on above: Performed By: #### L 100.0100, L500.3400, L500.4050 #### [facility] [address] [place], [address] GFR/1.73 sq M.predicted among non-blacks MDRD (S/P/Bld) [Vol rate/Area] 90 mL/min/{1.73_m2} Normal >[address] [facility] Comment on above: Result Comment: Non- GFR Calc Performed By: #### L 100.0100, L500.3400, L500.4050 #### [facility] [address] [place], [address] Glucose [Mass/Vol] 151 mg/dL High 74-106 [facility] Comment on above: Result Comment: Fast ing Glucose result greater than or equal to 126 mg/dL suggests DIABETES MELLITUS per A.D.A. criteria. Performed By: #### L 100.0100, L500.3400, L500.4050 #### [facility] [address] [place], [address] Potassium [Moles/Vol] 5.7 mmol/L High 3.5-5.1 [facility] Comment on above: Performed By: #### L 100.0100, L500.3400, L500.4050 #### [facility] [address] [place], [address] Sodium [Moles/Vol] 139 mmol/L Normal 136-145 [facility] Comment on above: Performed By: #### L 100.0100, L500.3400, L500.4050 #### [facility] [address] [place], [address] Urea nitrogen [Mass/Vol] 13 mg/dL Normal 7-[address] [facility] Comment on above: Performed By: #### L 100.0100, L500.3400, L500.4050 #### [facility] [address] [place], [address] Emergency Department Summary on 08-31-2024 Emergency Department Summary [facility] Medical Records Department [address] [place] [address] Emergency Department Summary 08/31/24 MR#: [id number] Acct: [id number] Name: JAY BARBER Rep #: [id number] : 1995 29 From: Brady Bal DO [...] Patient states that he follows with the [facility] for his cystic fibrosis. Patient notes that he has been a little bit more tired than normal today but denies any other symptoms. [facility] Medical History (Updated 10/01/24 @ 19:[address] Brady Bal, DO) Cystic fibrosis Home Medications ???Medication ???Instructions ???Recorded ???Last Taken ???Type elexacaftor 100 mg-tezacaf 2 ea PO DAILY CF 11/14/19 07/04/20 History 50mg-ivacaf 75mg(d)/ivacaf 150mg(n) tablets amhjuu-rqejfbdd-kddmm se 2 - 3 cap PO TIDCM [...] Unknown History Verio test strips) blood-glucose sensor (SOAMAI G7 08/31/24 Unknown History Sensor device) carvedilol [...] following commands knew that he was at [facility] year is 2023 Skin: Warm, dry, intact Const Vital Signs: 08/31/24 13:44 08/31/24 14:05 08/31/24 14:15 Temperature 98.9 F Temperature Source Oral Pulse Rate 84 84 Respiratory Rate 18 18 Respiratory Effort Normal No (more content not included)... Normal [facility] H AND P Exam - Hospitaliston 08-31-2024 H&P Exam - Hospitalist [facility] Medical Records Department [address] [place] [address] H P Exam - Hospitalist 08/31/241946 MR#: [id number] Acct: [id number] Name: ELISABETHJAY EDWIN Rep #: [id number] : 1995 29 From: Niko Cook DO PCP: Care Physician,No Primary Status:ADM JAMARCUS Location: [place] [address] HPI - General General Date of Admission: 08/31/24 Date of Service: 08/31/24 Chief Complaint: Hyperkalemia HPI Narrative JAY BARBER, is a 29 M who presented to [facility] ED on 08/31/2024 for hyperkalemia. Patient has [...] patient will be admitted for further management. [facility] Medical History (Updated 08/31/24 @ 19:[address] Brady Bal, DO) Cystic fibrosis Home Medications ???Medication ???Instructions ???Recorded ???Last Taken ???Type elexacaftor 100 mg-tezacaf 2 ea PO DAILY CF 11/14/19 07/04/20 History 50mg-ivacaf 75mg(d)/ivacaf 150mg(n) tablets sjjdeq-apcoknwv-zabcx se 2 - 3 cap PO TIDCM [...] Unknown History Verio test strips) blood-glucose sensor (SOAMAI G7 08/31/24 Unknown History Sensor device) carvedilol [...] Respiratory Effo (more content not included)... Normal [facility] Liver Profileon 08-31-2024 Albumin [Mass/Vol] 1.5 g/dL Low 3.2-5.0 [facility] Comment on above: Performed By: #### L 100.0100, L500.3400, L500.4050 #### [facility] [address] [place], [address] ALK P 819 U/L High 45-[address] [facility] Comment on above: Performed By: #### L 100.0100, L500.3400, L500.4050 #### [facility] [address] [place], [address] ALT [Catalytic activity/Vol] 29 U/L Normal 16-[address] [facility] Comment on above: Performed By: #### L 100.0100, L500.3400, L500.4050 #### [facility] [address] [place], [address] AST [Catalytic activity/Vol] 50 U/L High 15-[address] [facility] Comment on above: Performed By: #### L 100.0100, L500.3400, L500.4050 #### [facility] [address] [place], [address] Bilirubin [Mass/Vol] 0.30 mg/dL Normal 0.20-1.00 [facility] Comment on above: Result Comment: For patients on eltrombopag therapy, use of Dimension Jenkins TBIL is not recommended. Performed By: #### L 100.0100, L500.3400, L500.4050 #### [facility] [address] [place], [address] Bilirubin.direct [Mass/Vol] 0.17 mg/dL Normal 0.00-0.[address] [facility] Comment on above: Performed By: #### L 100.0100, L500.3400, L500.4050 #### [facility] [address] [place], [address] Globulin (S) [Mass/Vol] 5.5 g/dL High 2.2-4.[address] [facility] Comment on above: Performed By: #### L 100.0100, L500.3400, L500.4050 #### [facility] [address] [place], [address] T PROT 7.0 g/dL Normal 6.4-8.[address] [facility] Comment on above: Performed By: #### L 100.0100, L500.3400, L500.4050 #### [facility] [address] [place], [address] Vancomycin, Random Levelon 1 VANCO, RANDOM 18.8 ug/mL High 0.0-15.[address] [facility] Comment on above: Result Comment: VANC OMYCIN STANDARD DRUG THERAPY: CRITICAL VALUE IS > 15.0 mg/L VANCOMYCIN HIGH INTENSITY THERAPY: CRITICAL VALUE IS > 20.0 mg/L PLEASE CONTACT PHARMACY SERVICES (#[id number]) FOR INTERPRETATION OF RESULTS. THIS RESULT DOES NOT REPRESENT A PEAK OR TROUGH LEVEL FOR THIS DRUG. Performed By: #### L 100.0100, L500.3400, L500.4050 #### [facility] [address] [place], [address] CNOVon 08-19-2024 CNOV Office Visit ([facility] ) ELISABETHJAY ([id number]) 1995 M Date Time Provider Department 08/19/24 [...] PLACEMENT: Sterile PRIMARY PROCEDURALIST: Orquidea Ochoa RN CIRCUIT DESIGNER: Daniel Barone RN PRE-PROCEDURE REVIEW ALLERGIES Allergen [...] applicable. Daniel Barone RN CATHETER PLACEMENT Brand: afterBOT Lot: [id number] Number of Lumens: 1 Type of PICC: Power Injectable PICC Lumen Size: 4 [place]orese PLACEMENT TECHNIQUE Lidocaine: Yes, Lidocaine 1% Volume [...] location system (more content not included)... Normal [facility] Comprehensive metabolic 2000 panelon 08-19-2024 Albumin [Mass/Vol] 2.7 g/dL Low 3.9 - 4.9 g/dL [facility] ALP [Catalytic activity/Vol] 1043 U/L High 38 - 113 U/L [facility] ALT [Catalytic activity/Vol] 25 U/L 10 - 54 U/L [facility] Anion gap [Moles/Vol] 9 mmol/L 8 - 15 mmol/L [facility] AST [Catalytic activity/Vol] 33 U/L 14 - 40 U/L [facility] Bilirubin [Mass/Vol] 0.6 mg/dL 0.2 - 1 .3 mg/dL [facility] Calcium [Mass/Vol] 8.6 mg/dL 8.5 - 10. 2 mg/dL [facility] Chloride [Moles/Vol] 98 mmol/L 98 - 10 7 mmol/L [facility] CO2 [Moles/Vol] 21 mmol/L Low 22 - 30 mmol/L [facility] Creatinine [Mass/Vol] 1.69 mg/dL High 0.73 - 1.22 mg/dL [facility] GFR/1.73 sq M.predicted among non-blacks MDRD (S/P/Bld) [Vol rate/Area] 55 mL/min/{1.73_m2} Low - PINF [facility] Comment on above: Estimated Glomerular Filtration [...] 126 mg/dL High 74 - 99 mg/dL [facility] Comment on above: The [place] Diabete s Association (ADA) provides guidance for [...] Standards of Medical Care in Diabetes 2016, [place] Diabetes Association. Diabetes Care. 2016.39(Suppl 1). Interpretation and review of laboratory results Abnormal [facility] Potassium [Moles/Vol] 4.9 mmol/L 3.7 - 5.1 mmol/L [facility] Protein [Mass/Vol] 8.6 g/dL High 6.3 - 8.0 g/dL [facility] Sodium [Moles/Vol] 128 mmol/L Low 136 - 144 mmol/L [facility] Urea nitrogen [Mass/Vol] 26 mg/dL High 9 - 24 mg/dL [facility] MAGNESIUMon 08-19-2024 Magnesium [Mass/Vol] 1.9 mg/dL 1.7 - 2 .3 mg/dL [facility] Magnesium [Mass/Vol]on 08-19 Interpretation and review of laboratory results Normal [facility] No Panel Informationon 08-19 Daniel Barone RN 08/19/2024 8:22 AM PICC NURSE INSERTION NOTE DATE OF PROCEDURE: August 19, 2024 TIME OF PROCEDURE: 0750 ORDERING PHYSICIAN: Dunia INFORMED CONSENT: Obtained per hospital policy. INDICATION FOR LINE PLACEMENT: IV access COPAT CONDITION OF LINE PLACEMENT: Sterile PRIMARY PROCEDURALIST: Orquidea Ochoa RN CIRCUIT DESIGNER: Daniel Barone RN PRE-PROCEDURE REVIEW ALLERGIES Allergen [...] applicable. Daniel Barone RN CATHETER PLACEMENT Brand: afterBOT Lot: [id number] Number of Lumens: 1 Type of PICC: Power Injectable PICC Lumen Size: 4 [place]se PLACEMENT TECHNIQUE Lidocaine: Yes, Lidocaine 1% Volume [...] Given to patient QUESTIONS or PROBLEMS: Call [phone] SIGNATURE: Daniel Barone RN PATIENT NAME: Jay Barber DATE: August 19, 2024 TIME: 8:08 AM PAGER/CONTACT PHONE: [facility] Radiology Study observation (narrative) [facility] CBC W Auto Differential pane l (Bld)on 08-18-2024 Basophils (Bld) [#/Vol] 0.11 10*3/uL High [facility] Basophils/100 WBC (Bld) 1.0 % [facility] Differential cell count method Nom (Bld) Auto [facility] Eosinophils (Bld) [#/Vol] 0.68 10*3/uL High [facility] Eosinophils/100 WBC (Bld) 6.0 % [facility] Erythrocyte distribution width (RBC) [Ratio] 17.9 % High 11.5 - 15.0 % [facility] Hematocrit (Bld) [Volume fraction] 35.3 % Low 39.0 - 51.0 % [facility] Hemoglobin (Bld) [Mass/Vol] 11.3 g/dL Low 13.0 - 17.0 g/dL [facility] Immature granulocytes (Bld) [#/Vol] 0.07 10*3/uL [facility] Immature granulocytes/100 WBC (Bld) 0.6 % [facility] Interpretation and review of laboratory results Abnormal [facility] Lymphocytes (Bld) [#/Vol] 1.90 10*3/uL [facility] Lymphocytes/100 WBC (Bld) 16.7 % [facility] MCH (RBC) [Entitic mass] 29.0 pg 26.0 - 34.[address] [facility] MCHC (RBC) [Mass/Vol] 32.0 g/dL 30.5 - 36.0 g/dL [facility] MCV (RBC) [Entitic vol] 90.7 fL 80.0 - 100.[address] [facility] Monocytes (Bld) [#/Vol] 0.90 10*3/uL High NINF [facility] Monocytes/100 WBC (Bld) 7.9 % [facility] Neutrophils (Bld) [#/Vol] 7.71 10*3/uL High [facility] Neutrophils/100 WBC (Bld) 67.8 % [facility] Nucleated RBC (Bld) [#/Vol] NINF [facility] Nucleated RBC/100 WBC (Bld) [Ratio] 0.0 % /[address] [facility] Platelet mean volume (Bld) [Entitic vol] 10.1 fL 9.0 - 12.[address] [facility] Platelets (Bld) [#/Vol] 274 10*3/uL [facility] RBC (Bld) [#/Vol] 3.89 10*6/uL Low 4.20 - 6.0 0 m/uL [facility] WBC (Bld) [#/Vol] 11.37 10*3/uL High [facility] VANCOMYCINon 08-18-2024 Vancomycin random [Mass/Vol] ug/mL Low 10.0 - 20.0 ug/mL [facility] Comment on above: Reference ranges and high/low indicator flags are provided as general guidelines only. The treating physician must determine appropriate target levels/dosing based on the specific clinical situation. Result rechecked. Vancomycin random [Mass/Vol] on 08-18-2024 Interpretation and review of laboratory results Abnormal [facility] CNOVon 07-06-2024 CNOV Office Visit ([facility] ) JAY BARBER ([id number]) 1995 M Date Time Provider Department 07/06/24 2:00 PM STEPHIE RAMIREZ During your visit today, we recorded the following information about you: Blood pressure Weight Height 156/92 42.4 kg 1.575 m Stephie Ramirez APRN.TUNNEL WORKER 07/07/2024 1:14 PM Signed Subjective Date of [...] appointment with nephrology, 07/2023: prot/creat ratio in [facility] Lipid Profile:10/2013: TC 111, HDL 42, LDL [...] results in care everywhere, 12/2019: [facility], 01/2020: labs in [facility], 07/2020; Alkaline Phosphatase 725 (45-117), ALT 77 (16-61), AST 163 (15-37), 12/2020: results in care everywhere., 03/2021: results In care everywhere, 12/2021: Alkaline Phosphatase 918 (38-113), bone percent 13.9%, liver percent 86.1 , 12/2022: liver function monitored by CF providers, 03/2023: in [facility], 08/2023: LFTS in [facility], 10/2023: LFTS in [facility], 03/2024: liver test in [facility] Dilated Eye Exam: Patient educated to have ophthalmology visits at least once a year. 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 08/2013: New patient visit for Cystic Fibrosis related Diabetes [facility] prior to today's office visit. [...] missed dosages (more content not included)... Normal [facility] HEMOGLOBIN A1C (POC)on 07-06 HbA1c (Bld) [Mass fraction] 6.2 % Abnormal 4.3 - 5.6 % [facility] Comment on above: Location:[facility], [address], [facility] Point of care (POC) Hemoglobin A1c (HGBA1C) [...] specific diabetes management situations: The POC device manager culinary provides a normal range of 4.2% to 6.5% for the HGBA1C POC test. However, the [place] Diabetes Association guidelines indicate that patients with [...] Interpretation and review of laboratory results Abnormal [facility] Bacteria identified Cystic f ibrosis respiratory culture Nom (Sput)Ordered By: Manju Beaulieu on 05-12-2024 Interpretation and review of laboratory results Abnormal [facility] No Staphylococcus aureus isolated. No Pseudomonas aeruginosa isolated. This test was developed and its performance characteristics determined by the [facility]'s Louie SantoroFormerly Named [facility] [place] ([facility]). It has not been cleared or approved by the FDA. [facility] is regulated under CLIA as qualified to perform high-complexity testing. This test is used for clinical purposes. It should not be regarded as investigational or for research. [facility] CYSTIC FIBROSIS RESPIRATORY CULTUREOrdered By: Manju Beaulieu on 05-12-2024 Bacteria identified Cystic fibrosis respiratory culture Nom (Sput) Rare Burkholderia cepacia complex Abnormal [facility] Bacteria identified Cystic fibrosis respiratory culture Nom (Sput) Many normal respiratory vicky Abnormal [facility] Bacteria identified Cystic fibrosis respiratory culture Nom (Sput) Rare Sphingobacterium multivorum Abnormal [facility] MR Biliary ducts and Pancrea tic duct WO and W contrast Ramu 05-07-2024 IMPRESSION: Multifocal segmental discontinuous bile duct dilation as described, most prominent in hepatic segment II, concerning for PBC or PSC. Cirrhotic liver with portal hypertension including multiple varices and mild splenomegaly but only trace ascites. No focal hepatic mass. Pancreatic changes consistent with sequela of cystic fibrosis. Creative/Art Director: KATHIE Transcribe Date/Time: May 07 2024 3:02P Dictated by : KELLY KOROMA MD This examination was interpreted and the report reviewed and electronically signed by: KELLY KOROMA MD on May 07 2024 3:14PM [facility] DIVISION OF RADIOLOGY * * *Final Report* * * DATE OF EXAM: May 07 2024 2:15PM [facility] 0730 - MRI PANC/MARYAM WO/W IVCON [...] No additional findings. DIVISION OF RADIOLOGY Provider, [facility] - 05/07/2024 * * *Final Report* * * DATE OF EXAM: May 07 2024 2:15PM [facility] 0730 - MRI PANC/MARYAM WO/W IVCON [...] changes consistent with sequela of cystic fibrosis. Creative/Art Director: PSCB Transcribe Date/Time: May 07 2024 3:02P Dictated by : KELLY KOROMA MD This examination was interpreted and the report reviewed and electronically signed by: KELLY KOROMA MD on May 07 2024 3:14PM EST [facility] Radiology Study observation (narrative) [facility] MR Biliary ducts and Pancrea tic duct WO and W contrast IVOrdered By: [facility]cf Provider on 05-07-[address] [facility] CNOVon 03-09-2024 CNOV Office Visit ([facility] ) JAY BARBER ([id number]) 1995 M Date Time Provider Department 03/09/24 2:00 PM STEPHIE RAMIREZ ENAG During your visit today, we recorded the following information about you: Blood pressure Weight Height 128/76 41 kg 1.575 m Stephie Ramirez, ADALI.TUNNEL WORKER 03/09/2024 4:10 PM Signed Subjective Date of [...] results in care everywhere, 01/2020: labs in [facility], 07/2020; Alkaline Phosphatase 725 (45-117), ALT 77 (16-61), AST 163 (15-37), 12/2020: results in care everywhere., 03/2021: results In care everywhere, 12/2021: Alkaline Phosphatase 918 (38-113), bone percent 13.9%, liver percent 86.1 , 12/2022: liver function monitored by CF providers, 03/2023: in [facility], 08/2023: LFTS in [facility], 10/2023: LFTS in [facility], 03/2024: liver test in [facility] Dilated Eye Exam: Patient educated to have ophthalmology visits at least once a year. 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 08/2013: New patient visit for Cystic Fibrosis related Diabetes Previous diabetes related [facility] reviewed prior to today's office visit. [...] patient due (more content not included)... Normal [facility] HEMOGLOBIN A1C (POC)on 03-09 HbA1c (Bld) [Mass fraction] 6.1 % Abnormal 4.3 - 5.6 % [facility] Absolute lymphocyte counton 02-24-2024 Lymphocytes Auto (Unsp spec) [#/Vol] 1.13 10*3/uL 0.83-4.[address] [facility] Automated blood hematocrit ( percentage)on 02-24-2024 Hematocrit (Bld) [Volume fraction] 23.1 % 40-[address] [facility] Automated lymphocyte count a s percentage of total leukocyteson 02-24-2024 Lymphocytes/100 WBC Auto (Unsp spec) 28.0 % 19-[address] [facility] Basic Metabolic Profile (BMP )on 02-24-2024 BUN/CRE 25.0 RATIO High 10-[address] [facility] Comment on above: Performed By: #### L 100.0100, L500.3400, L500.4050 #### [facility] [address] [place], [address] CA,Total 8.3 mg/dL Low 8.5-10.[address] [facility] Comment on above: Performed By: #### L 100.0100, L500.3400, L500.4050 #### [facility] [address] [place], [address] Chloride [Moles/Vol] 102 mmol/L Normal 98-107 [facility] Comment on above: Performed By: #### L 100.0100, L500.3400, L500.4050 #### [facility] [address] [place] [place], [address] CO2 [Moles/Vol] 27.0 mmol/L Normal 21.0-32.[address] [facility] Comment on above: Performed By: #### L 100.0100, L500.3400, L500.4050 #### [facility] [address] [place], [address] Creatinine [Mass/Vol] 1.60 mg/dL High 0.70-1.30 [facility] Comment on above: Result Comment: The validity of the calculated GFR GFRAA in patients over 70 years has not been determined. Clinical correlation is essential. Performed By: #### L 100.0100, L500.3400, L500.4050 #### [facility] [address] [place], [address] EST GFR - AA 65 mL/min Normal >[address] [facility] Comment on above: Result Comment: Afri can Faroese GFR Calc Performed By: #### L 100.0100, L500.3400, L500.4050 #### [facility] [address] [place], [address] GAP 4 Low 5-[address] [facility] Comment on above: Performed By: #### L 100.0100, L500.3400, L500.4050 #### [facility] [address] [place], [address] GFR/1.73 sq M.predicted among non-blacks MDRD (S/P/Bld) [Vol rate/Area] 54 mL/min/{1.73_m2} Low >[address] [facility] Comment on above: Result Comment: Non- GFR Calc Performed By: #### L 100.0100, L500.3400, L500.4050 #### [facility] [address] [place], [address] Glucose [Mass/Vol] 354 mg/dL High 74-106 [facility] Comment on above: Result Comment: Gluc ose result greater than or equal to 200 mg/dL suggests DIABETES MELLITUS per A.D.A. criteria. Performed By: #### L 100.0100, L500.3400, L500.4050 #### [facility] [address] [place], [address] Potassium [Moles/Vol] 4.9 mmol/L Normal 3.5-5.1 [facility] Comment on above: Performed By: #### L 100.0100, L500.3400, L500.4050 #### [facility] [address] [place], [address] Sodium [Moles/Vol] 133 mmol/L Low 136-145 [facility] Comment on above: Performed By: #### L 100.0100, L500.3400, L500.4050 #### [facility] [address] [place], [address] Urea nitrogen [Mass/Vol] 40 mg/dL High 7-[address] [facility] Comment on above: Performed By: #### L 100.0100, L500.3400, L500.4050 #### [facility] [address] [place], [address] Basophil percentageon 2023 Basophils/100 WBC (Bld) 1.2 % 0-[address] [facility] Bilirubin [Mass/Vol] 0.70 mg/dL 0.20-1.00 [facility] Comment on above: For patients on eltr ombopag therapy, use of Dimension Jenkins TBIL is not recommended. Chloride [Moles/Vol] 102 mmol/L 98-107 [facility] Eosinophils/100 WBC (Bld) 12.1 % 0-[address] [facility] Glucose [Mass/Vol] 354 mg/dL 74-106 [facility] Comment on above: Glucose result great er than or equal to 200 mg/dLsuggests DIABETES MELLITUS per A.D.A. criteria. Hemoglobin (Bld) [Mass/Vol] 7.5 g/dL 13.0-16.[address] [facility] Monocytes/100 WBC (Bld) 13.1 % 0-[address] [facility] Neutrophils (Bld) [#/Vol] 1.8 10*3/uL 2.0-7.[address] [facility] Neutrophils/100 WBC (Bld) 45.4 % 47-[address] [facility] Potassium [Moles/Vol] 4.9 mmol/L 3.5-5.1 [facility] Protein [Mass/Vol] 8.2 g/dL 6.4-8.2 [facility] Sodium [Moles/Vol] 133 mmol/L 136-145 [facility] WBC (Bld) [#/Vol] 4.0 10*3/uL 4.4-11.0 [facility] CBC W Auto Differential pane l (Bld)on 02-24-2024 Abs Neut (ANC) 1.8 K/uL Abnormal 2 - 7.7 K/uL [facility] CBC W/Diff, Automatedon 01-30 Absolute Lymph 1.13 X10 3/uL Normal 0.83-4.[address] [facility] Comment on above: Performed By: #### L 100.0100, L500.3400, L500.4050 #### [facility] [address] [place], [address] Absolute Neut 1.8 X10 3/uL Low 2.0-7.[address] [facility] Comment on above: Performed By: #### L 100.0100, L500.3400, L500.4050 #### [facility] [address] [place], [address] Basophils/100 WBC (Bld) 1.2 % High 0-[address] [facility] Comment on above: Performed By: #### L 100.0100, L500.3400, L500.4050 #### [facility] [address] [place], [address] Eosinophils/100 WBC (Bld) 12.1 % High 0-[address] [facility] Comment on above: Performed By: #### L 100.0100, L500.3400, L500.4050 #### [facility] [address] [place], [address] Erythrocyte distribution width (RBC) [Ratio] 14.0 % Normal 11.6-14.[address] [facility] Comment on above: Performed By: #### L 100.0100, L500.3400, L500.4050 #### [facility] [address] [place], [address] Hematocrit (Bld) [Volume fraction] 23.1 % Low 40-[address] [facility] Comment on above: Performed By: #### L 100.0100, L500.3400, L500.4050 #### [facility] [address] [place], [address] Hemoglobin (Bld) [Mass/Vol] 7.5 g/dL Low 13.0-16.[address] [facility] Comment on above: Performed By: #### L 100.0100, L500.3400, L500.4050 #### [facility] [address] [place], [address] IG% 0.200 Normal 0.0-0.[address] [facility] Comment on above: Result Comment: IG% - Immature Granulocytes (promyelocytes, myelocytes and metamyelocytes) > 1% indicates that a LEFT SHIFT is Present. Performed By: #### L 100.0100, L500.3400, L500.4050 #### [facility] [address] [place], [address] Lymphocytes/100 WBC (Bld) 28.0 % Normal 19-[address] [facility] Comment on above: Performed By: #### L 100.0100, L500.3400, L500.4050 #### [facility] [address] [place], [address] MCH (RBC) [Entitic mass] 30.5 pg Normal 27.0-32.[address] [facility] Comment on above: Performed By: #### L 100.0100, L500.3400, L500.4050 #### [facility] [address] [place], [address] MCHC (RBC) [Mass/Vol] 32.5 g/dL Normal 32-36 [facility] Comment on above: Performed By: #### L 100.0100, L500.3400, L500.4050 #### [facility] [address] [place], [address] MCV (RBC) [Entitic vol] 93.9 fL Normal 80-[address] [facility] Comment on above: Performed By: #### L 100.0100, L500.3400, L500.4050 #### [facility] [address] [place], [address] Monocytes/100 WBC (Bld) 13.1 % High 0-[address] [facility] Comment on above: Performed By: #### L 100.0100, L500.3400, L500.4050 #### [facility] [address] [place], [address] Neutrophils/100 WBC (Bld) 45.4 % Low 47-[address] [facility] Comment on above: Performed By: #### L 100.0100, L500.3400, L500.4050 #### [facility] [address] [place], [address] Nucleated RBC (Bld) [#/Vol] 0 10*3/uL Normal 0-[address] [facility] Comment on above: Performed By: #### L 100.0100, L500.3400, L500.4050 #### [facility] [address] [place], [address] Platelet mean volume (Bld) [Entitic vol] 9.7 fL Normal 6.2-12.[address] [facility] Comment on above: Performed By: #### L 100.0100, L500.3400, L500.4050 #### [facility] [address] [place], [address] Platelets (Bld) [#/Vol] 225 10*3/uL Normal 150-[address] [facility] Comment on above: Performed By: #### L 100.0100, L500.3400, L500.4050 #### [facility] [address] [place], [address] RBC (Bld) [#/Vol] 2.46 10*6/uL Low 4.6-6.2 [facility] Comment on above: Performed By: #### L 100.0100, L500.3400, L500.4050 #### [facility] [address] [place], [address] RDW SD 48.2 fl High 35.1-43.[address] [facility] Comment on above: Performed By: #### L 100.0100, L500.3400, L500.4050 #### [facility] [address] [place], [address] WBC (Bld) [#/Vol] 4.0 10*3/uL Low 4.4-11.0 [facility] Comment on above: Performed By: #### L 100.0100, L500.3400, L500.4050 #### [facility] [address] [place], [address] Comprehensive metabolic 2000 panelon 02-24-2024 AST [Catalytic activity/Vol] 163 U/L Abnormal 15 - [address] [facility] Determination of erythrocyte mean corpuscular volume (MCV)on 02-24-2024 MCV (RBC) [Entitic vol] 93.9 fL 80-[address] [facility] Direct bilirubinon Bilirubin.direct [Mass/Vol] 0.40 mg/dL 0.00-0.[address] [facility] Erythrocyte distribution wid th ratioon 02-24-2024 Erythrocyte distribution width (RBC) [Ratio] 14.0 % 11.6-14.[address] [facility] Erythrocyte distribution wid th standard deviationon 02-24-2024 Erythrocyte distribution width (RBC) [Entitic vol] 48.2 fL 35.1-43.[address] [facility] Immature granulocytes/100 WB C Auto (Bld)on 02-24-2024 Immature granulocytes/100 WBC (Bld) 0.200 % 0.0-0.[address] [facility] Comment on above: IG% - Immature Granu locytes (promyelocytes, myelocytes and metamyelocytes) > 1% indicates that a LEFT SHIFT is Present. Laboratory - Chemistry and C hemistry - challengeon 02-24-2024 ALP [Catalytic activity/Vol] 915 U/L 45-[address] [facility] ALT [Catalytic activity/Vol] 96 U/L - [facility] CO2 [Moles/Vol] 27.0 mmol/L 21.0-32.[address] [facility] Globulin (S) [Mass/Vol] 6.3 g/dL 2.2-4.[address] [facility] Urea nitrogen/Creatinine [Mass ratio] 25.0 mg/mg 10-[address] [facility] Laboratory - Hematology and Cell countson 02-24-2024 MCH (RBC) [Entitic mass] 30.5 pg 27.0-32.[address] [facility] MCHC (RBC) [Mass/Vol] 32.5 g/dL 32-36 [facility] Nucleated RBC/100 WBC (Bld) [Ratio] 0 % 0-[address] [facility] Platelet mean volume (Bld) [Entitic vol] 9.7 fL 6.2-12.[address] [facility] Platelets (Bld) [#/Vol] 225 10*3/uL 150-[address] [facility] Liver Profileon 02-24-2024 Albumin [Mass/Vol] 1.9 g/dL Low 3.2-5.0 [facility] Comment on above: Performed By: #### L 100.0100, L500.3400, L500.4050 #### [facility] [address] [place], [address] ALK P 915 U/L High -[address] [facility] Comment on above: Performed By: #### L 100.0100, L500.3400, L500.4050 #### [facility] [address] [place], [address] ALT [Catalytic activity/Vol] 96 U/L High [facility] Comment on above: Performed By: #### L 100.0100, L500.3400, L500.4050 #### [facility] [address] [place], [address] AST [Catalytic activity/Vol] 163 U/L High 15-[address] [facility] Comment on above: Performed By: #### L 100.0100, L500.3400, L500.4050 #### [facility] [address] [place], [address] Bilirubin [Mass/Vol] 0.70 mg/dL Normal 0.20-1.00 [facility] Comment on above: Result Comment: For patients on eltrombopag therapy, use of Dimension Jenkins TBIL is not recommended. Performed By: #### L 100.0100, L500.3400, L500.4050 #### [facility] [address] [place], [address] Bilirubin.direct [Mass/Vol] 0.40 mg/dL High 0.00-0.[address] [facility] Comment on above: Performed By: #### L 100.0100, L500.3400, L500.4050 #### [facility] [address] [place], [address] Globulin (S) [Mass/Vol] 6.3 g/dL High 2.2-4.[address] [facility] Comment on above: Performed By: #### L 100.0100, L500.3400, L500.4050 #### [facility] [address] [place], [address] T PROT 8.2 g/dL Normal 6.4-8.[address] [facility] Comment on above: Performed By: #### L 100.0100, L500.3400, L500.4050 #### [facility] [address] [place], [address] No Panel Informationon 02-23 Estimated GFR (MDRD) Amer 65 mL/min >[address] [facility] Comment on above: GFR Calc Estimated GFR (MDRD) Non-Af Amer 54 mL/min >[address] [facility] Comment on above: Non- GFR Calc RBC Auto (Bld) [#/Vol]on RBC (Bld) [#/Vol] 2.46 10*6/uL 4.6-6.2 [facility] Serum or plasma calcium soham urement (mass/volume)on 02-24-2024 Calcium [Mass/Vol] 8.3 mg/dL 8.5-10.1 [facility] Serum or plasma creatinine m easurement (mass/volume)on 02-24-2024 Creatinine [Mass/Vol] 1.60 mg/dL 0.70-1.30 [facility] Comment on above: The validity of the calculated GFR & GFRAA in patients over 70 years has not been determined. Clinical correlation is essential. Serum or plasma trough vanco mycin levelon 02-24-2024 Vancomycin trough [Mass/Vol] 18.1 ug/mL 5.0-15.[address] [facility] Comment on above: VANCOMYCIN STANDARED DRUG THERAPY TROUGH LEVEL: 5.0 - 15.0 mg/L VANCOMYCIN HIGH INTENSITY THERAPY TROUGH LEVEL: 15.0 - 20.0 mg/L High Intensity therapy recommended for serious lifethreatening infections include:- Jimpiasjrx-Mffigvtypntq-Yojtclrqq (Ventilator/Healtcare Associated)-Sepsis PLEASE CONTACT PHARMACY SERVICES (#[id number]) FOR INTERPRETATIONOF RESULTS. Serum or plasma urea nitroge n measurement (mass/volume)on 02-24-2024 Urea nitrogen [Mass/Vol] 40 mg/dL 7-[address] [facility] Thin prep Papanicolaou smear with manual screeningon 02-24-2024 Thin prep Papanicolaou smear with manual screening 1.9 g/dL 3.2-5.[address] [facility] Thin prep Papanicolaou smear with manual screening 163 U/L 15-[address] [facility] Thin prep Papanicolaou smear with manual screening 4 5-[address] [facility] VANCOMYCIN PRE DOSEon 2023 Vancomycin Pre 18.1 Abnormal 5 - [address] [facility] Vancomycin, Trough Levelon 0 3-26-2024 VANCO, TROUGH 18.1 ug/mL High 5.0-15.[address] [facility] Comment on above: Order Comment: 1400 Result Comment: VANC OMYCIN STANDARED DRUG THERAPY TROUGH LEVEL: 5.0 - 15.0 mg/L VANCOMYCIN HIGH INTENSITY THERAPY TROUGH LEVEL: 15.0 - 20.0 mg/L High Intensity therapy recommended for serious life threatening infections include: - Meningitis -Endocarditis -Pneumonia (Ventilator/Healtcare Associated) -Sepsis PLEASE CONTACT PHARMACY SERVICES (#[id number]) FOR INTERPRETATION OF RESULTS. Performed By: #### L 100.0100, L500.3400, L500.4050 #### [facility] [address] [place], [address] Absolute lymphocyte counton 02-17-2024 Lymphocytes Auto (Unsp spec) [#/Vol] 1.30 10*3/uL 0.83-4.[address] [facility] Automated blood hematocrit ( percentage)on 02-17-2024 Hematocrit (Bld) [Volume fraction] 25.7 % 40-[address] [facility] Automated lymphocyte count a s percentage of total leukocyteson 02-17-2024 Lymphocytes/100 WBC Auto (Unsp spec) 26.3 % 19-[address] [facility] Basic Metabolic Profile (BMP )on 02-17-2024 BUN/CRE 24.6 RATIO High 10-[address] [facility] Comment on above: Performed By: #### L 100.0100, L501.8850, L500.2500 #### [facility] [address] [place], [address] CA,Total 8.5 mg/dL Normal 8.5-10.[address] [facility] Comment on above: Performed By: #### L 100.0100, L501.8850, L500.2500 #### [facility] [address] [place], [address] Chloride [Moles/Vol] 103 mmol/L Normal 98-107 [facility] Comment on above: Performed By: #### L 100.0100, L501.8850, L500.2500 #### [facility] [address] [place], [address] CO2 [Moles/Vol] 29.0 mmol/L Normal 21.0-32.[address] [facility] Comment on above: Performed By: #### L 100.0100, L501.8850, L500.2500 #### [facility] [address] [place], [address] Creatinine [Mass/Vol] 1.26 mg/dL Normal 0.70-1.30 [facility] Comment on above: Result Comment: The validity of the calculated GFR GFRAA in patients over 70 years has not been determined. Clinical correlation is essential. Performed By: #### L 100.0100, L501.8850, L500.2500 #### [facility] [address] [place], [address] EST GFR - AA 86 mL/min Normal >[address] [facility] Comment on above: Result Comment: Afri can Faroese GFR Calc Performed By: #### L 100.0100, L501.8850, L500.2500 #### [facility] [address] [place], [address] GAP 5 Normal 5-[address] [facility] Comment on above: Performed By: #### L 100.0100, L501.8850, L500.2500 #### [facility] [address] [place], [address] GFR/1.73 sq M.predicted among non-blacks MDRD (S/P/Bld) [Vol rate/Area] 71 mL/min/{1.73_m2} Normal >[address] [facility] Comment on above: Result Comment: Non- GFR Calc Performed By: #### L 100.0100, L501.8850, L500.2500 #### [facility] [address] [place], [address] Glucose [Mass/Vol] 150 mg/dL High 74-106 [facility] Comment on above: Result Comment: Fast ing Glucose result greater than or equal to 126 mg/dL suggests DIABETES MELLITUS per A.D.A. criteria. Performed By: #### L 100.0100, L501.8850, L500.2500 #### [facility] [address] [place], [address] Potassium [Moles/Vol] 4.3 mmol/L Normal 3.5-5.1 [facility] Comment on above: Performed By: #### L 100.0100, L501.8850, L500.2500 #### [facility] [address] [place], [address] Sodium [Moles/Vol] 137 mmol/L Normal 136-145 [facility] Comment on above: Performed By: #### L 100.0100, L501.8850, L500.2500 #### [facility] [address] [place], [address] Urea nitrogen [Mass/Vol] 31 mg/dL High 7-[address] [facility] Comment on above: Performed By: #### L 100.0100, L501.8850, L500.2500 #### [facility] [address] [place], [address] Basophil percentageon 2023 Basophils/100 WBC (Bld) 1.2 % 0-[address] [facility] Chloride [Moles/Vol] 103 mmol/L 98-107 [facility] Eosinophils/100 WBC (Bld) 6.5 % 0-[address] [facility] Glucose [Mass/Vol] 150 mg/dL 74-106 [facility] Comment on above: Fasting Glucose resu lt greater than or equal to 126 mg/dL suggests DIABETES MELLITUS per A.D.A. criteria. Hemoglobin (Bld) [Mass/Vol] 8.3 g/dL 13.0-16.[address] [facility] Monocytes/100 WBC (Bld) 14.8 % 0-[address] [facility] Neutrophils (Bld) [#/Vol] 2.5 10*3/uL 2.0-7.[address] [facility] Neutrophils/100 WBC (Bld) 51.0 % 47-[address] [facility] Potassium [Moles/Vol] 4.3 mmol/L 3.5-5.1 [facility] Sodium [Moles/Vol] 137 mmol/L 136-145 [facility] WBC (Bld) [#/Vol] 4.9 10*3/uL 4.4-11.0 [facility] CBC W Auto Differential pane l (Bld)on 02-17-2024 Abs Neut (ANC) 2.5 K/uL 2 - 7.7 K/uL [facility] CBC W/Diff, Automatedon 01-29 Absolute Lymph 1.30 X10 3/uL Normal 0.83-4.[address] [facility] Comment on above: Performed By: #### L 100.0100, L501.8850, L500.2500 #### [facility] [address] [place], [address] Absolute Neut 2.5 X10 3/uL Normal 2.0-7.[address] [facility] Comment on above: Performed By: #### L 100.0100, L501.8850, L500.2500 #### [facility] [address] [place], [address] Basophils/100 WBC (Bld) 1.2 % High 0-[address] [facility] Comment on above: Performed By: #### L 100.0100, L501.8850, L500.2500 #### [facility] [address] [place], [address] Eosinophils/100 WBC (Bld) 6.5 % High 0-[address] [facility] Comment on above: Performed By: #### L 100.0100, L501.8850, L500.2500 #### [facility] [address] [place], [address] Erythrocyte distribution width (RBC) [Ratio] 16.0 % High 11.6-14.[address] [facility] Comment on above: Performed By: #### L 100.0100, L501.8850, L500.2500 #### [facility] [address] [place], [address] Hematocrit (Bld) [Volume fraction] 25.7 % Low 40-[address] [facility] Comment on above: Performed By: #### L 100.0100, L501.8850, L500.2500 #### [facility] [address] [place], [address] Hemoglobin (Bld) [Mass/Vol] 8.3 g/dL Low 13.0-16.[address] [facility] Comment on above: Performed By: #### L 100.0100, L501.8850, L500.2500 #### [facility] [address] [place], [address] IG% 0.200 Normal 0.0-0.[address] [facility] Comment on above: Result Comment: IG% - Immature Granulocytes (promyelocytes, myelocytes and metamyelocytes) > 1% indicates that a LEFT SHIFT is Present. Performed By: #### L 100.0100, L501.8850, L500.2500 #### [facility] [address] [place], [address] Lymphocytes/100 WBC (Bld) 26.3 % Normal 19-[address] [facility] Comment on above: Performed By: #### L 100.0100, L501.8850, L500.2500 #### [facility] [address] [place], [address] MCH (RBC) [Entitic mass] 30.6 pg Normal 27.0-32.[address] [facility] Comment on above: Performed By: #### L 100.0100, L501.8850, L500.2500 #### [facility] [address] [place], [address] MCHC (RBC) [Mass/Vol] 32.3 g/dL Normal 32-36 [facility] Comment on above: Performed By: #### L 100.0100, L501.8850, L500.2500 #### [facility] [address] [place], [address] MCV (RBC) [Entitic vol] 94.8 fL High 80-[address] [facility] Comment on above: Performed By: #### L 100.0100, L501.8850, L500.2500 #### [facility] [address] [place], [address] Monocytes/100 WBC (Bld) 14.8 % High 0-[address] [facility] Comment on above: Performed By: #### L 100.0100, L501.8850, L500.2500 #### [facility] [address] [place], [address] Neutrophils/100 WBC (Bld) 51.0 % Normal 47-[address] [facility] Comment on above: Performed By: #### L 100.0100, L501.8850, L500.2500 #### [facility] [address] [place], [address] Nucleated RBC (Bld) [#/Vol] 0 10*3/uL Normal 0-[address] [facility] Comment on above: Performed By: #### L 100.0100, L501.8850, L500.2500 #### [facility] [address] [place], [address] Platelet mean volume (Bld) [Entitic vol] 11.0 fL Normal 6.2-12.[address] [facility] Comment on above: Performed By: #### L 100.0100, L501.8850, L500.2500 #### [facility] [address] [place], [address] Platelets (Bld) [#/Vol] 179 10*3/uL Normal 150-[address] [facility] Comment on above: Performed By: #### L 100.0100, L501.8850, L500.2500 #### [facility] [address] [place], [address] RBC (Bld) [#/Vol] 2.71 10*6/uL Low 4.6-6.2 [facility] Comment on above: Performed By: #### L 100.0100, L501.8850, L500.2500 #### [facility] [address] [place], [address] RDW SD 55.3 fl High 35.1-43.[address] [facility] Comment on above: Performed By: #### L 100.0100, L501.8850, L500.2500 #### [facility] [address] [place], [address] WBC (Bld) [#/Vol] 4.9 10*3/uL Normal 4.4-11.0 [facility] Comment on above: Performed By: #### L 100.0100, L501.8850, L500.2500 #### [facility] [address] [place], [address] Determination of erythrocyte mean corpuscular volume (MCV)on 02-17-2024 MCV (RBC) [Entitic vol] 94.8 fL 80-[address] [facility] Erythrocyte distribution wid th ratioon 02-17-2024 Erythrocyte distribution width (RBC) [Ratio] 16.0 % 11.6-14.[address] [facility] Erythrocyte distribution wid th standard deviationon 02-17-2024 Erythrocyte distribution width (RBC) [Entitic vol] 55.3 fL 35.1-43.[address] [facility] Immature granulocytes/100 WB C Auto (Bld)on 02-17-2024 Immature granulocytes/100 WBC (Bld) 0.200 % 0.0-0.[address] [facility] Comment on above: IG% - Immature Granu locytes (promyelocytes, myelocytes and metamyelocytes) > 1% indicates that a LEFT SHIFT is Present. Laboratory - Chemistry and C hemistry - challengeon 02-17-2024 CO2 [Moles/Vol] 29.0 mmol/L 21.0-32.[address] [facility] Urea nitrogen/Creatinine [Mass ratio] 24.6 mg/mg 10-[address] [facility] - Hematology and Cell countson 02-17-2024 MCH (RBC) [Entitic mass] 30.6 pg 27.0-32.[address] [facility] MCHC (RBC) [Mass/Vol] 32.3 g/dL 32-36 [facility] Nucleated RBC/100 WBC (Bld) [Ratio] 0 % 0-[address] [facility] Platelet mean volume (Bld) [Entitic vol] 11.0 fL 6.2-12.[address] [facility] Platelets (Bld) [#/Vol] 179 10*3/uL 150-[address] [facility] No Panel Informationon 02-16 Estimated GFR (MDRD) Amer 86 mL/min >[address] [facility] Comment on above: GFR Calc Estimated GFR (MDRD) Non-Af Amer 71 mL/min >[address] [facility] Comment on above: Non- GFR Calc RBC Auto (Bld) [#/Vol]on RBC (Bld) [#/Vol] 2.71 10*6/uL 4.6-6.2 [facility] Serum or plasma calcium soham urement (mass/volume)on 02-17-2024 Calcium [Mass/Vol] 8.5 mg/dL 8.5-10.1 [facility] Serum or plasma creatinine m easurement (mass/volume)on 02-17-2024 Creatinine [Mass/Vol] 1.26 mg/dL 0.70-1.30 [facility] Comment on above: The validity of the calculated GFR & GFRAA in patients over 70 years has not been determined. Clinical correlation is essential. Serum or plasma urea nitroge n measurement (mass/volume)on 02-17-2024 Urea nitrogen [Mass/Vol] 31 mg/dL 7-[address] [facility] Serum or plasma vancomycin m easurement (mass/volume)on 02-17-2024 Vancomycin [Mass/Vol] 33.5 ug/mL 0.0-15.0 [facility] Comment on above: VANCOMYCIN STANDARD DRUG THERAPY: CRITICAL VALUE IS > 15.0 mg/L VANCOMYCIN HIGH INTENSITY THERAPY: CRITICAL VALUE IS > 20.0 mg/L PLEASE CONTACT PHARMACY SERVICES (#[id number]) FOR INTERPRETATIONOF RESULTS. THIS RESULT DOES NOT REPRESENT A PEAK OR TROUGHLEVEL FOR THIS DRUG. Thin prep Papanicolaou smear with manual screeningon 02-17-2024 Thin prep Papanicolaou smear with manual screening 5 5-[address] [facility] VANCOMYCIN LEVELon Vancomycin, result 33.5 Abnormal 0 - 15 [facility] Vancomycin, Random Levelon 0 02-17-2024 VANCO, RANDOM 33.5 ug/mL High 0.0-15.[address] [facility] Comment on above: Order Comment: PT DO DEBORAH TIME 0800 AND 1999. Result Comment: VANC OMYCIN STANDARD DRUG THERAPY: CRITICAL VALUE IS > 15.0 mg/L VANCOMYCIN HIGH INTENSITY THERAPY: CRITICAL VALUE IS > 20.0 mg/L PLEASE CONTACT PHARMACY SERVICES (#[id number]) FOR INTERPRETATION OF RESULTS. THIS RESULT DOES NOT REPRESENT A PEAK OR TROUGH LEVEL FOR THIS DRUG. Performed By: #### L 100.0100, L501.8850, L500.2500 #### [facility] [address] [place], [place], [id number] RETIC COUNTon 08-18-2023 Reticulocytes (Bld) [#/Vol] 0.91944 10*3/uL 0.018 - 0.100 M/uL [facility] Reticulocytes (Bld) [#/Vol]o n 08-18-2023 Reticulocytes/100 RBC (Bld) 2.6 % High 0.4 - 2.0 % [facility] Comprehensive metabolic 2000 panelon 08-07-2023 Albumin [Mass/Vol] 2.7 g/dL Low 3.9 - 4.9 g/dL [facility] ALP [Catalytic activity/Vol] 627 U/L High 38 - 113 U/L [facility] ALT With P-5'-P [Catalytic activity/Vol] 67 U/L High 10 - 54 U/L [facility] Anion gap [Moles/Vol] 6 mmol/L Low 9 - 18 mmol/L [facility] AST With P-5'-P [Catalytic activity/Vol] 87 U/L High 14 - 40 U/L [facility] Bilirubin [Mass/Vol] 1.3 mg/dL 0.2 - 1 .3 mg/dL [facility] Calcium [Mass/Vol] 9.0 mg/dL 8.5 - 10. 2 mg/dL [facility] Chloride [Moles/Vol] 101 mmol/L 97 - 10 5 mmol/L [facility] CO2 [Moles/Vol] 23 mmol/L 22 - 30 mmol/L [facility] Creatinine [Mass/Vol] 1.13 mg/dL 0.73 - 1.22 mg/dL [facility] Estimated Glomerular Filtration Rate 90 mL/min/1.73m >=60 mL/min/1.73m [facility] Glucose [Mass/Vol] 116 mg/dL High 74 - 99 mg/dL [facility] Potassium [Moles/Vol] 5.1 mmol/L 3.7 - 5.1 mmol/L [facility] Protein [Mass/Vol] 8.6 g/dL High 6.3 - 8.0 g/dL [facility] Sodium [Moles/Vol] 130 mmol/L Low 136 - 144 mmol/L [facility] Urea nitrogen [Mass/Vol] 23 mg/dL 9 - 24 mg/dL [facility] Respiratory pathogens DNA an d RNA 12b panel PABLO+probe (Unsp spec)on 07-02-2023 Adenovirus hexon gene PABLO+probe Ql (Nph) Not detected Not detected [facility] B. parapertussis DNA PABLO+probe Ql (Unsp spec) Not detected Not detected [facility] B. pertussis DNA PABLO+probe Ql (Unsp spec) Not detected Not detected [facility] C. pneumoniae DNA PABLO+probe Ql (Unsp spec) Not detected Not detected [facility] FLUAV RNA PABLO+probe Ql (Unsp spec) Not detected Not detected [facility] FLUBV RNA PABLO+probe Ql (Unsp spec) Not detected Not detected [facility] HCoV [id number] RNA PBALO+probe Ql (Nph) Not detected Not detected [facility] HCoV HKU1 RNA PABLO+probe Ql (Unsp spec) Not detected Not detected [facility] HCoV NL63 RNA PABLO+non-probe Ql (Nph) Not detected Not detected [facility] HCoV OC43 RNA PABLO+probe Ql (Unsp spec) Not detected Not detected [facility] hMPV RNA PABLO+probe Ql (Unsp spec) Not detected Not detected [facility] M. pneumoniae DNA PABLO+probe Ql (Unsp spec) Not detected Not detected [facility] Parainfluenza virus 1 RNA PABLO+probe Ql (Unsp spec) Not detected Not detected [facility] Parainfluenza virus 2 RNA PABLO+probe Ql (Unsp spec) Not detected Not detected [facility] Parainfluenza virus 3 RNA PABLO+probe Ql (Unsp spec) Not detected Not detected [facility] Parainfluenza virus 4 P gene PABLO+probe Ql (Nph) Not detected Not detected [facility] Rhinovirus 5' UTR RNA PABLO+probe Ql (Nph) Not detected Not detected [facility] RSV RNA PABLO+probe Ql (Upper resp) Not detected Not detected [facility] SARS-CoV-2 (COVID-19) RNA PABLO+probe Ql (Resp) Not detected See comment [facility] XR ABDOMEN 1V SUPINEon 07-[address] [facility] XR ABDOMEN 1V SUPINEon 06-[address] [facility] Respiratory pathogens DNA an d RNA 12b panel PABLO+probe (Unsp spec)on 03-19-2023 Adenovirus hexon gene PABLO+probe Ql (Nph) Not detected Not detected [facility] B. parapertussis DNA PABLO+probe Ql (Unsp spec) Not detected Not detected [facility] B. pertussis DNA PABLO+probe Ql (Unsp spec) Not detected Not detected [facility] C. pneumoniae DNA PABLO+probe Ql (Unsp spec) Not detected Not detected [facility] FLUAV RNA PABLO+probe Ql (Unsp spec) Not detected Not detected [facility] FLUBV RNA PABLO+probe Ql (Unsp spec) Not detected Not detected [facility] HCoV [id number]+OC43 RNA PABLO+probe Ql (Nph) Not detected Not detected [facility] HCoV HKU1 RNA PABLO+probe Ql (Unsp spec) Not detected Not detected [facility] HCoV NL63 RNA PABLO+non-probe Ql (Nph) Not detected Not detected [facility] HCoV OC43 RNA PABLO+probe Ql (Unsp spec) Not detected Not detected [facility] hMPV RNA PABLO+probe Ql (Unsp spec) Not detected Not detected [facility] M. pneumoniae DNA PABLO+probe Ql (Unsp spec) Not detected Not detected [facility] Parainfluenza virus 1 RNA PABLO+probe Ql (Unsp spec) Not detected Not detected [facility] Parainfluenza virus 2 RNA PABLO+probe Ql (Unsp spec) Not detected Not detected [facility] Parainfluenza virus 3 RNA PABLO+probe Ql (Unsp spec) Detected Abnormal Not detected [facility] Parainfluenza virus 4 P gene PABLO+probe Ql (Nph) Not detected Not detected [facility] Rhinovirus 5' UTR RNA PABLO+probe Ql (Nph) Not detected Not detected [facility] RSV RNA PABLO+probe Ql (Upper resp) Not detected Not detected [facility] SARS-CoV-2 (COVID-19) RNA PABLO+probe Ql (Resp) Not detected See comment [facility] SPIROMETRY BASELINE ONLYon 0 03-05-2023 MBU06-34% PRE (L/S) 0.25 L/S [facility] FEV1 PRE (L) 0.[address] [facility] FEV1/FVC PRE (%) 35 % [facility] FVC PRE (L) 2.[address] [facility] PEF PRE (L/S) 3.95 L/S [facility] CBC W Auto Differential pane l (Bld)on 02-26-2023 Basophils (Bld) [#/Vol] 0.07 10*3/uL <0.11 k/uL [facility] Basophils/100 WBC (Bld) 1.5 % [facility] Differential cell count method Nom (Bld) Auto [facility] Eosinophils (Bld) [#/Vol] 0.17 10*3/uL <0.46 k/uL [facility] Eosinophils/100 WBC (Bld) 3.7 % [facility] Erythrocyte distribution width (RBC) [Ratio] 13.7 % 11.5 - 15.0 % [facility] Hematocrit (Bld) [Volume fraction] 38.6 % Low 39.0 - 51.0 % [facility] Hemoglobin (Bld) [Mass/Vol] 13.3 g/dL 13.0 - 17.0 g/dL [facility] Immature granulocytes (Bld) [#/Vol] <0.10 k/uL [facility] Immature granulocytes/100 WBC (Bld) 0.4 % [facility] Lymphocytes (Bld) [#/Vol] 0.97 10*3/uL Low 1.00 - 4.00 k/uL [facility] Lymphocytes/100 WBC (Bld) 21.0 % [facility] MCH (RBC) [Entitic mass] 31.5 pg 26.0 - 34.[address] [facility] MCHC (RBC) [Mass/Vol] 34.5 g/dL 30.5 - 36.0 g/dL [facility] MCV (RBC) [Entitic vol] 91.5 fL 80.0 - 100.[address] [facility] Monocytes (Bld) [#/Vol] 0.36 10*3/uL <0.87 k/uL [facility] Monocytes/100 WBC (Bld) 7.8 % [facility] Neutrophils (Bld) [#/Vol] 3.03 10*3/uL 1.45 - 7.50 k/uL [facility] Neutrophils/100 WBC (Bld) 65.6 % [facility] Nucleated RBC (Bld) [#/Vol] <0.01 k/uL [facility] Nucleated RBC/100 WBC (Bld) [Ratio] 0.0 /[address] [facility] Platelet mean volume (Bld) [Entitic vol] 9.5 fL 9.0 - 12.[address] [facility] Platelets (Bld) [#/Vol] 241 10*3/uL 150 - 400 k/uL [facility] RBC (Bld) [#/Vol] 4.22 10*6/uL 4.20 - 6.0 0 m/uL [facility] WBC (Bld) [#/Vol] 4.62 10*3/uL 3.70 - 11. 00 k/uL [facility] PT panel Coag (PPP)on 2022 INR Coag (PPP) [Relative time] 1.3 {INR} 0.9 - 1.[address] [facility] PT Coag (PPP) [Time] 13.5 s High 9.7 - [address] [facility] Comprehensive metabolic 2000 panelon 12-04-2022 Albumin [Mass/Vol] 3.1 g/dL Low 3.9 - 4.9 g/dL [facility] ALP [Catalytic activity/Vol] 992 U/L High 38 - 113 U/L [facility] ALT [Catalytic activity/Vol] 131 U/L High 10 - 54 U/L [facility] Anion gap [Moles/Vol] 6 mmol/L Low 9 - 18 mmol/L [facility] AST [Catalytic activity/Vol] 140 U/L High 14 - 40 U/L [facility] Bilirubin [Mass/Vol] 1.4 mg/dL High 0.2 - 1 .3 mg/dL [facility] Calcium [Mass/Vol] 9.1 mg/dL 8.5 - 10. 2 mg/dL [facility] Chloride [Moles/Vol] 96 mmol/L Low 97 - 10 5 mmol/L [facility] CO2 [Moles/Vol] 32 mmol/L High 22 - 30 mmol/L [facility] Creatinine [Mass/Vol] 0.78 mg/dL 0.73 - 1.22 mg/dL [facility] Estimated Glomerular Filtration Rate 124 mL/min/1.73m >=60 mL/min/1.73m [facility] Glucose [Mass/Vol] 195 mg/dL High 74 - 99 mg/dL [facility] Potassium [Moles/Vol] 4.1 mmol/L 3.7 - 5.1 mmol/L [facility] Protein [Mass/Vol] 7.7 g/dL 6.3 - 8.0 g/dL [facility] Sodium [Moles/Vol] 134 mmol/L Low 136 - 144 mmol/L [facility] Urea nitrogen [Mass/Vol] 13 mg/dL 9 - 24 mg/dL [facility] MAGNESIUM BLDon 12-04-2022 Magnesium [Mass/Vol] 1.6 mg/dL Low 1.7 - 2 .3 mg/dL [facility] CBC W Auto Differential pane l (Bld)on 12-03-2022 Basophils (Bld) [#/Vol] 0.07 10*3/uL <0.11 k/uL [facility] Basophils/100 WBC (Bld) 0.7 % [facility] Differential cell count method Nom (Bld) Auto [facility] Eosinophils (Bld) [#/Vol] 1.54 10*3/uL High <0.46 k/uL [facility] Eosinophils/100 WBC (Bld) 15.0 % [facility] Erythrocyte distribution width (RBC) [Ratio] 13.9 % 11.5 - 15.0 % [facility] Hematocrit (Bld) [Volume fraction] 34.0 % Low 39.0 - 51.0 % [facility] Hemoglobin (Bld) [Mass/Vol] 11.9 g/dL Low 13.0 - 17.0 g/dL [facility] Immature granulocytes (Bld) [#/Vol] 0.03 10*3/uL <0.10 k/uL [facility] Immature granulocytes/100 WBC (Bld) 0.3 % [facility] Lymphocytes (Bld) [#/Vol] 3.60 10*3/uL 1.00 - 4.00 k/uL [facility] Lymphocytes/100 WBC (Bld) 35.0 % [facility] MCH (RBC) [Entitic mass] 31.3 pg 26.0 - 34.[address] [facility] MCHC (RBC) [Mass/Vol] 35.0 g/dL 30.5 - 36.0 g/dL [facility] MCV (RBC) [Entitic vol] 89.5 fL 80.0 - 100.[address] [facility] Monocytes (Bld) [#/Vol] 0.98 10*3/uL High <0.87 k/uL [facility] Monocytes/100 WBC (Bld) 9.5 % [facility] Neutrophils (Bld) [#/Vol] 4.08 10*3/uL 1.45 - 7.50 k/uL [facility] Neutrophils/100 WBC (Bld) 39.5 % [facility] Nucleated RBC (Bld) [#/Vol] <0.01 k/uL [facility] Nucleated RBC/100 WBC (Bld) [Ratio] 0.0 /[address] [facility] Platelet mean volume (Bld) [Entitic vol] 9.7 fL 9.0 - 12.[address] [facility] Platelets (Bld) [#/Vol] 214 10*3/uL 150 - 400 k/uL [facility] RBC (Bld) [#/Vol] 3.80 10*6/uL Low 4.20 - 6.0 0 m/uL [facility] WBC (Bld) [#/Vol] 10.30 10*3/uL 3.70 - 11 .00 k/uL [facility] VANCOMYCINon 12-03-2022 Vancomycin random [Mass/Vol] Low 10.0 - 20.0 ug/mL [facility] VANCOMYCINon 11-28-2022 Vancomycin random [Mass/Vol] 5.3 ug/mL Low 10.0 - 20.0 ug/mL [facility] Absolute lymphocyte counton 11-26-2022 Lymphocytes Auto (Unsp spec) [#/Vol] 1.31 10*3/uL 0.83-4.[address] [facility] Work Phone: Automated blood hematocrit ( percentage)on 11-26-2022 Hematocrit (Bld) [Volume fraction] 30.8 % 40-[address] [facility] Basophil percentageon 2021 Basophils/100 WBC (Bld) 1.6 % 0-[address] [facility] Work Phone: Bilirubin [Mass/Vol] 0.80 mg/dL 0.20-1.00 [facility] Comment on above: For patients on eltr ombopag therapy, use of Dimension Jenkins TBIL is not recommended. Chloride [Moles/Vol] 101 mmol/L 98-107 [facility] Work Phone: Eosinophils/100 WBC (Bld) 16.6 % 0-[address] [facility] Glucose [Mass/Vol] 388 mg/dL 74-106 [facility] Work Phone: Comment on above: Glucose result great er than or equal to 200 mg/dLsuggests DIABETES MELLITUS per A.D.A. criteria. Neutrophils (Bld) [#/Vol] 2.3 10*3/uL 2.0-7.[address] [facility] Work Phone: Neutrophils/100 WBC (Bld) 47.2 % 47-[address] [facility] Potassium [Moles/Vol] 4.4 mmol/L 3.5-5.1 [facility] Protein [Mass/Vol] 8.1 g/dL 6.4-8.2 [facility] Work Phone: Sodium [Moles/Vol] 131 mmol/L 136-145 [facility] Work Phone: WBC (Bld) [#/Vol] 4.9 10*3/uL 4.4-11.0 [facility] Blood erythrocytes count (nu mber/volume)on 11-26-2022 RBC (Bld) [#/Vol] 3.38 10*6/uL 4[facility]6-6.2 [facility] Work Phone: Blood hemoglobin measurement (mass/volume)on 11-26-2022 Hemoglobin (Bld) [Mass/Vol] 10.2 g/dL 13.0-16.[address] [facility] Blood lymphocytes/100 leukoc yteson 11-26-2022 Lymphocytes/100 WBC (Bld) 26.5 % 19-[address] [facility] Work Phone: [phone] Blood monocytes/100 leukocyt eson 11-26-2022 Monocytes/100 WBC (Bld) 7.9 % 0-[address] [facility] Work Phone: Blood platelet mean volumeon 11-26-2022 Platelet mean volume (Bld) [Entitic vol] 9.4 fL 6.2-12.[address] [facility] Work Phone: CBC W Auto Differential pane l (Bld)on 11-26-2022 Abs Neut (ANC) 2.3 K/uL 2 - 7.7 K/uL [facility] Comprehensive metabolic 2000 panelon 11-26-2022 AST [Catalytic activity/Vol] 145 U/L Abnormal 15 - [address] [facility] Determination of erythrocyte mean corpuscular volume (MCV)on 11-26-2022 MCV (RBC) [Entitic vol] 91.1 fL 80-[address] [facility] Work Phone: Laboratory - Chemistry and C hemistry - challengeon 11-26-2022 ALP [Catalytic activity/Vol] 1147 U/L 45-[address] [facility] ALT [Catalytic activity/Vol] 145 U/L 16-[address] [facility] CO2 [Moles/Vol] 27.0 mmol/L 21.0-32.[address] [facility] Work Phone: Globulin (S) [Mass/Vol] 5.8 g/dL 2.2-4.[address] [facility] Work Phone: Magnesium [Mass/Vol] 1.8 mg/dL 1.6-2.6 [facility] Work Phone: Urea nitrogen/Creatinine [Mass ratio] 12.9 mg/mg 10-[address] [facility] Work Phone: Laboratory - Hematology and Cell countson 11-26-2022 Erythrocyte distribution width (RBC) [Entitic vol] 42.1 fL 35.1-43.[address] [facility] Work Phone: Erythrocyte distribution width (RBC) [Ratio] 13.1 % 11.6-14.[address] [facility] Work Phone: Immature granulocytes/100 WBC (Bld) 0.200 % 0.0-0.[address] [facility] Work Phone: Comment on above: IG% - Immature Granu locytes (promyelocytes, myelocytes and metamyelocytes) > 1% indicates that a LEFT SHIFT is Present. MCH (RBC) [Entitic mass] 30.2 pg 27.0-32.[address] [facility] Work Phone: Nucleated RBC/100 WBC (Bld) [Ratio] 0 % 0-[address] [facility] Work Phone: MCHC Auto (RBC) [Mass/Vol]on 11-26-2022 MCHC (RBC) [Mass/Vol] 33.1 g/dL 32-36 [facility] Work Phone: Magnesium [Mass/Vol]on 11-26 Magnesium.plasma/Magn esium.RBC (Bld) [Molar ratio] 1.8 1.6 - 2.[address] [facility] No Panel Informationon 11-26 Estimated GFR (MDRD) Amer 96 mL/min >[address] [facility] Work Phone: Comment on above: GFR Calc Estimated GFR (MDRD) Non-Af Amer 79 mL/min >[address] [facility] Work Phone: Comment on above: Non- GFR Calc Platelets bldon 11-26-2022 Platelets (Bld) [#/Vol] 196 10*3/uL 150-[address] [facility] Serum or plasma albumin soham urement (mass/volume)on 11-26-2022 Albumin [Mass/Vol] 2.3 g/dL 3.2-5.0 [facility] Work Phone: Serum or plasma albumin/glob ulin mass ratioon 11-26-2022 Albumin/Globulin [Mass ratio] 0.4 {ratio} 0.9-2.[address] [facility] Work Phone: Serum or plasma calcium soham urement (mass/volume)on 11-26-2022 Calcium [Mass/Vol] 8.7 mg/dL 8.5-10.1 [facility] Work Phone: Serum or plasma creatinine m easurement (mass/volume)on 11-26-2022 Creatinine [Mass/Vol] 1.16 mg/dL 0.70-1.30 [facility] Comment on above: The validity of the calculated GFR & GFRAA in patients over 70 years has not been determined. Clinical correlation is essential. Serum or plasma urea nitroge n measurement (mass/volume)on 11-26-2022 Urea nitrogen [Mass/Vol] 15 mg/dL 7-[address] [facility] Work Phone: Thin prep Papanicolaou smear with manual screeningon 11-26-2022 Thin prep Papanicolaou smear with manual screening 145 U/L 15-[address] [facility] Work Phone: Thin prep Papanicolaou smear with manual screening 3 5-[address] [facility] Work Phone: SPIROMETRY BASELINE ONLYon 1 01-21-2022 VYS42-97% PRE (L/S) 0.22 L/S [facility] FEV1 PRE (L) 0.[address] [facility] FEV1/FVC PRE (%) 35 % [facility] FVC PRE (L) 2.[address] [facility] PEF PRE (L/S) 3.81 L/S [facility] Absolute lymphocyte counton 11-18-2022 Lymphocytes Auto (Unsp spec) [#/Vol] 1.49 10*3/uL 0.83-4.[address] [facility] Work Phone: Basophil percentageon 2021 Basophils/100 WBC (Bld) 1.2 % 0-[address] [facility] Work Phone: Bilirubin [Mass/Vol] 1.50 mg/dL 0.20-1.00 [facility] Work Phone: Comment on above: For patients on eltr ombopag therapy, use of Dimension [employer] TBIL is not recommended. Chloride [Moles/Vol] 103 mmol/L 98-107 [facility] Work Phone: Eosinophils/100 WBC (Bld) 12.6 % 0-[address] [facility] Work Phone: Glucose [Mass/Vol] 400 mg/dL 74-106 [facility] Work Phone: Comment on above: Glucose result great er than or equal to 200 mg/dLsuggests DIABETES MELLITUS per A.D.A. criteria. Neutrophils (Bld) [#/Vol] 3.5 10*3/uL 2.0-7.[address] [facility] Work Phone: Neutrophils/100 WBC (Bld) 53.9 % 47-[address] [facility] Work Phone: [phone] Potassium [Moles/Vol] 4.8 mmol/L 3.5-5.1 [facility] Work Phone: Protein [Mass/Vol] 8.5 g/dL 6.4-8.2 [facility] Work Phone: [phone] Sodium [Moles/Vol] 133 mmol/L 136-145 [facility] Work Phone: WBC (Bld) [#/Vol] 6.4 10*3/uL 4.4-11.0 [facility] Work Phone: Blood erythrocytes count (nu mber/volume)on 11-18-2022 RBC (Bld) [#/Vol] 3.60 10*6/uL 4.6-6.2 [facility] Work Phone: [phone] Blood hemoglobin measurement (mass/volume)on 11-18-2022 Hemoglobin (Bld) [Mass/Vol] 11.0 g/dL 13.0-16.[address] [facility] Work Phone: Blood lymphocytes/100 leukoc yteson 11-18-2022 Lymphocytes/100 WBC (Bld) 23.2 % 19-[address] [facility] Work Phone: Blood monocytes/100 leukocyt eson 11-18-2022 Monocytes/100 WBC (Bld) 8.6 % 0-[address] [facility] Work Phone: Blood platelet mean volumeon 11-18-2022 Platelet mean volume (Bld) [Entitic vol] 9.1 fL 6.2-12.[address] [facility] Work Phone: Determination of erythrocyte mean corpuscular volume (MCV)on 11-18-2022 MCV (RBC) [Entitic vol] 92.2 fL 80-[address] [facility] Work Phone: Hematocrit Auto (Bld) [Volum e fraction]on 11-18-2022 Hematocrit (Bld) [Volume fraction] 33.2 % 40-[address] [facility] Work Phone: [phone] Laboratory - Chemistry and C hemistry - challengeon 11-18-2022 ALP [Catalytic activity/Vol] 987 U/L 45-[address] [facility] Work Phone: ALT [Catalytic activity/Vol] 94 U/L 16-[address] [facility] Work Phone: CO2 [Moles/Vol] 25.0 mmol/L 21.0-32.[address] [facility] Work Phone: Globulin (S) [Mass/Vol] 6.5 g/dL 2.2-4.[address] [facility] Work Phone: Magnesium [Mass/Vol] 1.8 mg/dL 1.6-2.6 [facility] Work Phone: Urea nitrogen/Creatinine [Mass ratio] 21.8 mg/mg 10-[address] [facility] Work Phone: Laboratory - Hematology and Cell countson 11-18-2022 Erythrocyte distribution width (RBC) [Entitic vol] 42.8 fL 35.1-43.[address] [facility] Work Phone: Erythrocyte distribution width (RBC) [Ratio] 12.8 % 11.6-14.[address] [facility] Work Phone: Immature granulocytes/100 WBC (Bld) 0.500 % 0.0-0.[address] [facility] Work Phone: Comment on above: IG% - Immature Granu locytes (promyelocytes, myelocytes and metamyelocytes) > 1% indicates that a LEFT SHIFT is Present. MCH (RBC) [Entitic mass] 30.6 pg 27.0-32.[address] [facility] Work Phone: Nucleated RBC/100 WBC (Bld) [Ratio] 0 % 0-[address] [facility] Work Phone: MCHC Auto (RBC) [Mass/Vol]on 11-18-2022 MCHC (RBC) [Mass/Vol] 33.1 g/dL 32-36 [facility] Work Phone: No Panel Informationon 11-18 Estimated GFR (MDRD) Amer 112 mL/min >[address] [facility] Work Phone: Comment on above: GFR Calc Estimated GFR (MDRD) Non-Af Amer 93 mL/min >[address] [facility] Work Phone: Comment on above: Non- GFR Calc Platelets bldon 11-18-2022 Platelets (Bld) [#/Vol] 300 10*3/uL 150-[address] [facility] Work Phone: Serum or plasma albumin soham urement (mass/volume)on 11-18-2022 Albumin [Mass/Vol] 2.0 g/dL 3.2-5.0 [facility] Work Phone: Serum or plasma albumin/glob ulin mass ratioon 11-18-2022 Albumin/Globulin [Mass ratio] 0.3 {ratio} 0.9-2.[address] [facility] Work Phone: Serum or plasma calcium soham urement (mass/volume)on 11-18-2022 Calcium [Mass/Vol] 8.5 mg/dL 8.5-10.1 [facility] Work Phone: Serum or plasma creatinine m easurement (mass/volume)on 11-18-2022 Creatinine [Mass/Vol] 1.01 mg/dL 0.70-1.30 [facility] Work Phone: Comment on above: The validity of the calculated GFR & GFRAA in patients over 70 years has not been determined. Clinical correlation is essential. Serum or plasma urea nitroge n measurement (mass/volume)on 11-18-2022 Urea nitrogen [Mass/Vol] 22 mg/dL 7-[address] [facility] Work Phone: Thin prep Papanicolaou smear with manual screeningon 11-18-2022 Thin prep Papanicolaou smear with manual screening 207 U/L 15-[address] [facility] Work Phone: Thin prep Papanicolaou smear with manual screening 5 5-[address] [facility] Work Phone: Absolute lymphocyte counton 11-15-2022 Lymphocytes Auto (Unsp spec) [#/Vol] 1.66 10*3/uL 0.83-4.[address] [facility] Work Phone: Basophil percentageon 2021 Basophils/100 WBC (Bld) 1.2 % 0-[address] [facility] Work Phone: Bilirubin [Mass/Vol] 0.60 mg/dL 0.20-1.00 [facility] Work Phone: Comment on above: For patients on eltr ombopag therapy, use of Dimension Jenkins TBIL is not recommended. Chloride [Moles/Vol] 105 mmol/L 98-107 [facility] Work Phone: Eosinophils/100 WBC (Bld) 8.6 % 0-[address] [facility] Work Phone: Glucose [Mass/Vol] 375 mg/dL 74-106 [facility] Work Phone: [phone] Comment on above: Glucose result great er than or equal to 200 mg/dLsuggests DIABETES MELLITUS per A.D.A. criteria. Neutrophils (Bld) [#/Vol] 4.2 10*3/uL 2.0-7.[address] [facility] Work Phone: [phone] Neutrophils/100 WBC (Bld) 56.9 % 47-[address] [facility] Work Phone: [phone] Potassium [Moles/Vol] 5.2 mmol/L 3.5-5.1 [facility] Work [facility]: [phone] Protein [Mass/Vol] 8.9 g/dL 6.4-8.2 [facility] Work Phone: [phone] Sodium [Moles/Vol] 132 mmol/L 136-145 [facility] Work Phone: [phone] WBC (Bld) [#/Vol] 7.4 10*3/uL 4.4-11.0 [facility] Work Phone: Blood erythrocytes count (nu mber/volume)on 11-15-2022 RBC (Bld) [#/Vol] 3.68 10*6/uL 4.6-6.2 [facility]: Blood hemoglobin measurement (mass/volume)on 11-15-2022 Hemoglobin (Bld) [Mass/Vol] 11.2 g/dL 13.0-16.[address] [facility] Work Phone: [phone] Blood lymphocytes/100 leukoc yteson 11-15-2022 Lymphocytes/100 WBC (Bld) 22.6 % 19-[address] [facility] Work Phone: [phone] Blood monocytes/100 leukocyt eson 11-15-2022 Monocytes/100 WBC (Bld) 9.9 % 0-[address] [facility] Work Phone: [phone] Blood platelet mean volumeon 11-15-2022 Platelet mean volume (Bld) [Entitic vol] 9.0 fL 6.2-12.[address] [facility] Work Phone: Determination of erythrocyte mean corpuscular volume (MCV)on 11-15-2022 MCV (RBC) [Entitic vol] 92.7 fL 80-[address] [facility] Work Phone: Hematocrit Auto (Bld) [Volum e fraction]on 11-15-2022 Hematocrit (Bld) [Volume fraction] 34.1 % 40-[address] [facility] Work Phone: Laboratory - Chemistry and C hemistry - challengeon 11-15-2022 ALP [Catalytic activity/Vol] 947 U/L 45-[address] [facility] Work Phone: ALT [Catalytic activity/Vol] 67 U/L 16-[address] [facility] Work Phone: CO2 [Moles/Vol] 30.0 mmol/L 21.0-32.[address] [facility] Work Phone: Globulin (S) [Mass/Vol] 7.0 g/dL 2.2-4.[address] [facility] Work Phone: Urea nitrogen/Creatinine [Mass ratio] 17.9 mg/mg 10-[address] [facility] Work Phone: Laboratory - Hematology and Cell countson 11-15-2022 Erythrocyte distribution width (RBC) [Entitic vol] 43.6 fL 35.1-43.[address] [facility] Work Phone: Erythrocyte distribution width (RBC) [Ratio] 12.9 % 11.6-14.[address] [facility] Work Phone: Immature granulocytes/100 WBC (Bld) 0.800 % 0.0-0.[address] [facility] Work Phone: Comment on above: IG% - Immature Granu locytes (promyelocytes, myelocytes and metamyelocytes) > 1% indicates that a LEFT SHIFT is Present. MCH (RBC) [Entitic mass] 30.4 pg 27.0-32.[address] [facility] Work Phone: Nucleated RBC/100 WBC (Bld) [Ratio] 0 % 0-[address] [facility] Work Phone: MCHC Auto (RBC) [Mass/Vol]on 11-15-2022 MCHC (RBC) [Mass/Vol] 32.8 g/dL 32-36 [facility] Work Phone: No Panel Informationon 11-15 Estimated GFR (MDRD) Amer 129 mL/min >[address] [facility] Work Phone: Comment on above: GFR Calc Estimated GFR (MDRD) Non-Af Amer 107 mL/min >[address] [facility] Work Phone: Comment on above: Non- GFR Calc Platelets bldon 11-15-2022 Platelets (Bld) [#/Vol] 327 10*3/uL 150-[address] [facility] Work Phone: Serum or plasma albumin soham urement (mass/volume)on 11-15-2022 Albumin [Mass/Vol] 1.9 g/dL 3.2-5.0 [facility] Work Phone: Serum or plasma albumin/glob ulin mass ratioon 11-15-2022 Albumin/Globulin [Mass ratio] 0.3 {ratio} 0.9-2.[address] [facility] Work Phone: Serum or plasma calcium soham urement (mass/volume)on 11-15-2022 Calcium [Mass/Vol] 8.8 mg/dL 8.5-10.1 [facility] Work Phone: Serum or plasma creatinine m easurement (mass/volume)on 11-15-2022 Creatinine [Mass/Vol] 0.89 mg/dL 0.70-1.30 [facility] Work Phone: Comment on above: The validity of the calculated GFR & GFRAA in patients over 70 years has not been determined. Clinical correlation is essential. Serum or plasma urea nitroge n measurement (mass/volume)on 11-15-2022 Urea nitrogen [Mass/Vol] 16 mg/dL 7-[address] [facility] Work Phone: Thin prep Papanicolaou smear with manual screeningon 11-15-2022 Thin prep Papanicolaou smear with manual screening 150 U/L 15-[address] [facility] Work Phone: Thin prep Papanicolaou smear with manual screening -3 5-[address] [facility] Work Phone: Vancomycin troughon 11-15-20 Vancomycin trough [Mass/Vol] 27.6 ug/mL 5.0-15.[address] [facility] Work Phone: Comment on above: VANCOMYCIN STANDARED DRUG THERAPY TROUGH LEVEL: 5.0 - 15.0 mg/L VANCOMYCIN HIGH INTENSITY THERAPY TROUGH LEVEL: 15.0 - 20.0 mg/L High Intensity therapy recommended for serious lifethreatening infections include:- Jxwfuhzxzd-Nxtdqqiscudz-Oimpcokyu (Ventilator/Healtcare Associated)-Sepsis PLEASE CONTACT PHARMACY SERVICES (#[id number]) FOR INTERPRETATIONOF RESULTS. No Panel Informationon 08-07 Estimated GFR (MDRD) Amer 109 mL/min >[address] [facility] Work Phone: Comment on above: GFR Calc Estimated GFR (MDRD) Non-Af Amer 90 mL/min >[address] [facility] Work Phone: Comment on above: Non- GFR Calc Serum or plasma creatinine m easurement (mass/volume)on 08-07-2022 Creatinine [Mass/Vol] 1.04 mg/dL 0.70-1.30 [facility] Work Phone: Comment on above: The validity of the calculated GFR & GFRAA in patients over 70 years has not been determined. Clinical correlation is essential. Absolute lymphocyte counton 08-06-2022 Lymphocytes Auto (Unsp spec) [#/Vol] 1.83 10*3/uL 0.83-4.[address] [facility] Work Phone: Automated blood hematocrit ( percentage)on 08-06-2022 Hematocrit (Bld) [Volume fraction] 34.3 % 40-[address] [facility] Basophil percentageon 2021 Basophils/100 WBC (Bld) 1.6 % 0-[address] [facility] Work Phone: Eosinophils/100 WBC (Bld) 7.9 % 0-[address] [facility] Neutrophils (Bld) [#/Vol] 4.8 10*3/uL 2.0-7.[address] [facility] Work Phone: Neutrophils/100 WBC (Bld) 57.5 % 47-[address] [facility] WBC (Bld) [#/Vol] 8.4 10*3/uL 4.4-11.0 [facility] Blood erythrocytes count (nu mber/volume)on 08-06-2022 RBC (Bld) [#/Vol] 3.67 10*6/uL 4.6-6.2 [facility] Work Phone: Blood hemoglobin measurement (mass/volume)on 08-06-2022 Hemoglobin (Bld) [Mass/Vol] 11.5 g/dL 13.0-16.[address] [facility] Blood lymphocytes/100 leukoc yteson 08-06-2022 Lymphocytes/100 WBC (Bld) 21.9 % 19-[address] [facility] Work Phone: Blood monocytes/100 leukocyt eson 08-06-2022 Monocytes/100 WBC (Bld) 10.6 % 0-[address] [facility] Work Phone: Blood platelet mean volumeon 08-06-2022 Platelet mean volume (Bld) [Entitic vol] 8.8 fL 6.2-12.[address] [facility] Work Phone: CBC W Auto Differential pane l (Bld)on 08-06-2022 Abs Neut (ANC) 4.8 K/uL 2 - 7.7 [facility] Determination of erythrocyte mean corpuscular volume (MCV)on 08-06-2022 MCV (RBC) [Entitic vol] 93.5 fL 80-[address] [facility] Work Phone: Laboratory - Hematology and Cell countson 08-06-2022 Erythrocyte distribution width (RBC) [Entitic vol] 43.7 fL 35.1-43.[address] [facility] Work Phone: Erythrocyte distribution width (RBC) [Ratio] 12.6 % 11.6-14.[address] [facility] Work Phone: Immature granulocytes/100 WBC (Bld) 0.500 % 0.0-0.[address] [facility] Work Phone: Comment on above: IG% - Immature Granu locytes (promyelocytes, myelocytes and metamyelocytes) > 1% indicates that a LEFT SHIFT is Present. MCH (RBC) [Entitic mass] 31.3 pg 27.0-32.[address] [facility] Work Phone: Nucleated RBC/100 WBC (Bld) [Ratio] 0 % 0-[address] [facility] Work Phone: MCHC Auto (RBC) [Mass/Vol]on 08-06-2022 MCHC (RBC) [Mass/Vol] 33.5 g/dL 32-36 [facility] Work Phone: Platelets bldon 08-06-2022 Platelets (Bld) [#/Vol] 422 10*3/uL 150-[address] [facility] VANCOMYCIN PRE DOSEon 2021 Vancomycin Pre 19.5 Abnormal 5 - [address] [facility] Vancomycin troughon 08-06-20 22 Vancomycin trough [Mass/Vol] 19.5 ug/mL 5.0-15.[address] [facility] Work Phone: Comment on above: VANCOMYCIN STANDARED DRUG THERAPY TROUGH LEVEL: 5.0 - 15.0 mg/L VANCOMYCIN HIGH INTENSITY THERAPY TROUGH LEVEL: 15.0 - 20.0 mg/L High Intensity therapy recommended for serious lifethreatening infections include:- Mlomagiqym-Kjkhbbfaanmh-Ngyznyokw (Ventilator/Healtcare Associated)-Sepsis PLEASE CONTACT PHARMACY SERVICES (#[id number]) FOR INTERPRETATIONOF RESULTS. No Panel Informationon 07-[address] [facility] C-REACTIVE PROTEIN (CRP)on 0 07-18-2022 CRP [Mass/Vol] 1.7 mg/dL High <0.9 mg/dL [facility] Comprehensive metabolic 2000 panelon 07-18-2022 Albumin [Mass/Vol] 2.8 g/dL Low 3.9 - 4.9 g/dL [facility] ALP [Catalytic activity/Vol] 1169 U/L High 38 - 113 U/L [facility] ALT [Catalytic activity/Vol] 20 U/L 10 - 54 U/L [facility] Anion gap [Moles/Vol] 7 mmol/L Low 9 - 18 mmol/L [facility] AST [Catalytic activity/Vol] 35 U/L 14 - 40 U/L [facility] Bilirubin [Mass/Vol] 1.0 mg/dL 0.2 - 1 .3 mg/dL [facility] Calcium [Mass/Vol] 8.7 mg/dL 8.5 - 10. 2 mg/dL [facility] Chloride [Moles/Vol] 95 mmol/L Low 97 - 10 5 mmol/L [facility] CO2 [Moles/Vol] 30 mmol/L 22 - 30 mmol/L [facility] Creatinine [Mass/Vol] 0.65 mg/dL Low 0.73 - 1.22 mg/dL [facility] Estimated Glomerular Filtration Rate 131 mL/min/1.73m >=60 mL/min/1.73m [facility] Glucose [Mass/Vol] 197 mg/dL High 74 - 99 mg/dL [facility] Potassium [Moles/Vol] 4.3 mmol/L 3.7 - 5.1 mmol/L [facility] Protein [Mass/Vol] 8.5 g/dL High 6.3 - 8.0 g/dL [facility] Sodium [Moles/Vol] 132 mmol/L Low 136 - 144 mmol/L [facility] Urea nitrogen [Mass/Vol] 12 mg/dL 9 - 24 mg/dL [facility] GGT [facility] 07-18-2022 Gamma glutamyl transferase [Catalytic activity/Vol] 1363 U/L High 10 - 70 U/L [facility] IGE [facility] 07-18-2022 IgE Qn 27.0 kU/l <114.0 kU/l [facility] CBC W Auto Differential pane l (Bld)on 2022 Abs Immature Gran <0.10 k/uL [facility] Basophils (Bld) [#/Vol] 0.07 10*3/uL <0.11 k/uL [facility] Basophils/100 WBC (Bld) 1.0 % [facility] Differential cell count method Nom (Bld) Auto [facility] Eosinophils (Bld) [#/Vol] 0.10 10*3/uL <0.46 k/uL [facility] Eosinophils/100 WBC (Bld) 1.4 % [facility] Erythrocyte distribution width (RBC) [Ratio] 13.2 % 11.5 - 15.0 % [facility] Hematocrit (Bld) [Volume fraction] 39.0 % 39.0 - 51.0 % [facility] Hemoglobin (Bld) [Mass/Vol] 12.8 g/dL Low 13.0 - 17.0 g/dL [facility] Immature Gran % 0.3 % [facility] Lymphocytes (Bld) [#/Vol] 0.91 10*3/uL Low 1.00 - 4.00 k/uL [facility] Lymphocytes/100 WBC (Bld) 12.6 % [facility] MCH (RBC) [Entitic mass] 31.0 pg 26.0 - 34.[address] [facility] MCHC (RBC) [Mass/Vol] 32.8 g/dL 30.5 - 36.0 g/dL [facility] MCV (RBC) [Entitic vol] 94.4 fL 80.0 - 100.[address] [facility] Monocytes (Bld) [#/Vol] 0.39 10*3/uL <0.87 k/uL [facility] Monocytes/100 WBC (Bld) 5.4 % [facility] Neutrophils (Bld) [#/Vol] 5.75 10*3/uL 1.45 - 7.50 k/uL [facility] Neutrophils/100 WBC (Bld) 79.3 % [facility] Nucleated RBC (Bld) [#/Vol] <0.01 k/uL [facility] Nucleated RBC/100 WBC (Bld) [Ratio] 0.0 /[address] [facility] Platelet mean volume (Bld) [Entitic vol] 9.2 fL 9.0 - 12.[address] [facility] Platelets (Bld) [#/Vol] 232 10*3/uL 150 - 400 k/uL [facility] RBC (Bld) [#/Vol] 4.13 10*6/uL Low 4.20 - 6.0 0 m/uL [facility] WBC (Bld) [#/Vol] 7.24 10*3/uL 3.70 - 11. 00 k/uL [facility] HbA1c (Bld)on 2022 Average glucose Estimated from glycated hemoglobin (Bld) [Mass/Vol] 200 mg/dL [facility] HbA1c (Bld) [Mass fraction] 8.6 % High 4.3 - 5.6 % [facility] PT panel Coag (PPP)on 2021 INR Coag (PPP) [Relative time] 1.1 {INR} 0.9 - 1.[address] [facility] PT Coag (PPP) [Time] 11.9 s 9.7 - [address] [facility] VITAMIN D 25 HYDROXYon 07-17 25-hydroxyvitamin D3 [Mass/Vol] 14.7 ng/mL Low 31.0 - 80.0 ng/mL [facility] .GFRon 05-14-2022 GFR >60 Normal [facility] ([place]) Comment on above: Result Comment: GFR Population [...] Performed By: #### G FR, CMP #### [place] [address] GFR Non- >60 Normal [facility] ([place]) Comment on above: Result Comment: GFR Population [...] Performed By: #### Susan KAUR, CMP #### [address] [address] CMPon 05-14-2022 Albumin Level 1.9 G/dL Low 3.2-4.8 [facility] ([place]) Comment on above: Performed By: #### Susan KAUR, CMP #### [place] [id number] Albumin/Globulin [Mass ratio] 0.5 {ratio} Low 0.9-1.6 [facility] ([place]) Comment on above: Performed By: #### Susan KAUR, CMP #### [place] [id number] ALP [Catalytic activity/Vol] 881 U/L High 38-126 [facility] ([place]) Comment on above: Performed By: #### Susan KAUR, CMP #### [address] [address] ALT [Catalytic activity/Vol] 64 U/L High 12-55 [facility] ([place]) Comment on above: Performed By: #### Susan KAUR, CMP #### [address] [address] AST [Catalytic activity/Vol] 182 U/L High 8-34 [facility] ([place]) Comment on above: Performed By: #### Susan KAUR, CMP #### [address] [address] Bili Total 1.30 mg/dL High 0.20-1.20 [facility] ([place]) Comment on above: Result Comment: Use of this assay is not recommended for patients undergoing treatment with eltrombopag due to the potential for falsely elevated results. Performed By: #### Susan KAUR, CMP #### [place] [id number] BUN/Creatinine Ratio 22.1 ratio High 10.0-22.0 [facility] ([place]) Comment on above: Performed By: #### G , CMP #### [address] [address] Calcium [Mass/Vol] 7.6 mg/dL Low 8.7-10.4 [facility] ([place]) Comment on above: Performed By: #### Susan KAUR, CMP #### [address] [address] Chloride [Moles/Vol] 107 mmol/L Normal 98-110 [facility] ([place]) Comment on above: Performed By: #### Susan KAUR, CMP #### [address] [address] CO2 [Moles/Vol] 26 mmol/L Normal 22-32 [facility] ([place]) Comment on above: Performed By: #### Susan KAUR, CMP #### [address] [address] Creatinine [Mass/Vol] 0.68 mg/dL Normal 0.60-1.40 [facility] ([place]) Comment on above: Performed By: #### Susan KAUR, CMP #### [address] [address] Electrolyte Balance 0.0 mEq/L Low 4.0-15.0 [facility] ([place]) Comment on above: Performed By: #### Susan KAUR, CMP #### [address] [address] Globulin 3.8 G/dL Normal 1.5-3.8 [facility] ([place]) Comment on above: Performed By: #### Susan KAUR, CMP #### [address] [address] Glucose [Mass/Vol] 226 mg/dL High 70-110 [facility] ([place]) Comment on above: Performed By: #### Susan KAUR, CMP #### [address] [address] Potassium [Moles/Vol] 4.1 mmol/L Normal 3.5-5.0 [facility] ([place]) Comment on above: Performed By: #### Susan KAUR, CMP #### [address] [place], [place] [address] Sodium [Moles/Vol] 133 mmol/L Low 136-145 [facility] ([place]) Comment on above: Performed By: #### G FR, CMP #### [address] [address] Total Protein 5.7 G/dL Normal 5.7-8.2 [facility] ([place]) Comment on above: Result Comment: No te - New Reference Range in effect 20 Performed By: #### G FR, CMP #### [address] [address] Urea nitrogen [Mass/Vol] 15.0 mg/dL Normal 8.0-22.0 [facility] ([place]) Comment on above: Performed By: #### G FR, CMP #### [address] [address] Glucose by meteron 2 Glucose [Mass/Vol] 190 mg/dL High 70 - 99 mg/dL [facility] Comment on above: Bedside glucose is a screening procedure. The bedside glucose strip is calibrated to deliver plasma glucose levels. Glucose meter values <45 mg/dl and >450 mg/dl must be confirmed with a plasma or whole blood glucose performed in the lab. Whole blood glucose results are 10-15% lower than plasma glucose results. Interpretation and review of laboratory results Abnormal [facility] Glucose [Mass/Vol] 130 mg/dL High 70 - 99 mg/dL [facility] Comment on above: Bedside glucose is a screening procedure. The bedside glucose strip is calibrated to deliver plasma glucose levels. Glucose meter values <45 mg/dl and >450 mg/dl must be confirmed with a plasma or whole blood glucose performed in the lab. Whole blood glucose results are 10-15% lower than plasma glucose results. Interpretation and review of laboratory results Abnormal [facility] Glucose [Mass/Vol] 87 mg/dL 70 - 99 mg/dL [facility] Comment on above: Bedside glucose is a screening procedure. The bedside glucose strip is calibrated to deliver plasma glucose levels. Glucose meter values <45 mg/dl and >450 mg/dl must be confirmed with a plasma or whole blood glucose performed in the lab. Whole blood glucose results are 10-15% lower than plasma glucose results. [facility] LABORATORYOrdered By: SYSTEM SYSTEM on 05-14-2022 Albumin [...] 0.0 10 3/mcL Normal 0.0-0.3 [facility] ([place]) Basophils/100 WBC (Bld) 0.2 % Normal 0.0-2.5 [facility]) Eosinophil, Absolute 0.1 10 3/mcL Normal 0.0-0.7 [facility]) Eosinophils/100 WBC (Bld) 2.2 % Normal 0.0-6.0 [facility]) Lymphocyte, Absolute 0.8 10 3/mcL Low 0.9-4.3 [facility]) Lymphocytes/100 WBC (Bld) 12.2 % Low 20.0-40.0 [facility]) Monocyte, Absolute 0.5 10 3/mcL Normal 0.1-1.4 [facility]) Monocytes/100 WBC (Bld) 7.5 % Normal 2.0-13.0 [facility]) Neutrophils/100 WBC (Bld) 77.9 % High 50.0-75.0 [facility]) .MDWon 05-13-2022 Monocyte Distribution Width Not performed Normal 0.00-20.00 [facility] ([place]) Comment on above: Result Comment: MDW testing performed only on adult ER patients between the ages of 18-89 years. .NEUABSon 05-13-2022 Neutrophil, Absolute 5.3 10 3/mcL Normal 2.3-8.1 [facility] ([place]) CBCon 05-13-2022 Erythrocyte distribution width (RBC) [Ratio] 12.9 % Normal 11.5-15.5 [facility] ([place]) Hematocrit (Bld) [Volume fraction] 36.3 % Low 40.0-52.0 [facility] ([place]) Hgb 12.8 G/dL Low 13.0-17.5 [facility] ([place]) MCH (RBC) [Entitic mass] 32.4 pg Normal 27.0-33.0 [facility]) MCHC 35.3 G/dL Normal 32.0-36.0 [facility] ([place]) MCV (RBC) [Entitic vol] 92.0 fL Normal 81.0-100.0 [facility]) Platelet 183 10 3/mcL Normal 150-450 [facility]) Platelet mean volume (Bld) [Entitic vol] 6.9 fL Normal 6.4-10.5 [facility]) RBC 3.95 10 6/mcL Low 4.50-6.00 [facility]) WBC 6.9 10 3/mcL Normal 4.5-10.8 [facility]) EKG 12 leadon 05-13-2022 [place] ED Test Date: 2022-05-12 Pat Name: JAY BARBER Department: ED Room: 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1995 Requested By: [employer] Order Number: [id number] Edmond RUEDA: Nitin Best MD Measurements Intervals [place] Rate: 126 P: 76 DE: 143 QRS: 91 QRSD: 93 T: 52 QT: 318 QTc: 461 Interpretive Statements Sinus tachycardia Borderline right axis deviation Possible LVH Artifact ICD: I49.9 Cardiac Arrhythmia, unspecified Electronically Signed On 05-13-2022 9:53:55 EDT by Nitin Best MD PDF RESULT Nitin Best MD - 05/13/2022 [place] ED Test Date: 2022-05-12 Pat Name: JAY BARBER Department: ED Room: 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: Male 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1995 [facility]ed [facility] Order Number: [id number] Reading MD: Nitin Best MD Measurements Intervals [place] Rate: 126 P: 76 DE: 143 QRS: 91 QRSD: 93 T: 52 QT: 318 QTc: 461 Interpretive Statements Sinus tachycardia Borderline right axis deviation Possible LVH Artifact ICD: I49.9 Cardiac Arrhythmia, unspecified Electronically Signed On 05-13-2022 9:53:55 EDT by Nitin Best MD [facility] EKG 12 leadOrdered By: Nitin Best on 05-13-2022 [facility] Work Phone: Glucose by meteron 2 Glucose [Mass/Vol] 166 mg/dL High 70 - 99 mg/dL [facility] Comment on above: Bedside glucose is a screening procedure. The bedside glucose strip is calibrated to deliver plasma glucose levels. Glucose meter values <45 mg/dl and >450 mg/dl must be confirmed with a plasma or whole blood glucose performed in the lab. Whole blood glucose results are 10-15% lower than plasma glucose results. Interpretation and review of laboratory results Abnormal [facility] Glucose [Mass/Vol] 209 mg/dL High 70 - 99 mg/dL [facility] Comment on above: Bedside glucose is a screening procedure. The bedside glucose strip is calibrated to deliver plasma glucose levels. Glucose meter values <45 mg/dl and >450 mg/dl must be confirmed with a plasma or whole blood glucose performed in the lab. Whole blood glucose results are 10-15% lower than plasma glucose results. Interpretation and review of laboratory results Abnormal [facility] Glucose [Mass/Vol] 177 mg/dL High 70 - 99 mg/dL [facility] Comment on above: Bedside glucose is a screening procedure. The bedside glucose strip is calibrated to deliver plasma glucose levels. Glucose meter values <45 mg/dl and >450 mg/dl must be confirmed with a plasma or whole blood glucose performed in the lab. Whole blood glucose results are 10-15% lower than plasma glucose results. Interpretation and review of laboratory results Abnormal [facility] Glucose [Mass/Vol] 79 mg/dL 70 - 99 mg/dL [facility] Comment on above: Bedside glucose is a screening procedure. The bedside glucose strip is calibrated to deliver plasma glucose levels. Glucose meter values <45 mg/dl and >450 mg/dl must be confirmed with a plasma or whole blood glucose performed in the lab. Whole blood glucose results are 10-15% lower than plasma glucose results. [facility] Glucose [Mass/Vol] 104 mg/dL High 70 - 99 mg/dL [facility] Comment on above: Bedside glucose is a screening procedure. The bedside glucose strip is calibrated to deliver plasma glucose levels. Glucose meter values <45 mg/dl and >450 mg/dl must be confirmed with a plasma or whole blood glucose performed in the lab. Whole blood glucose results are 10-15% lower than plasma glucose results. Interpretation and review of laboratory results Abnormal [facility] LABORATORYOrdered By: Nikkie Benítez on 05-13-2022 Appearance [...] SS UAon 05-13-2022 Color (U) Straw Normal [facility] ([place]) Comment on above: Performed By: #### U A #### [place] [address] Glucose (U) [Mass/Vol] Negative Normal Negative [facility] ([place]) Comment on above: Performed By: #### U A #### [place] [id number] Ketones Ql (U) Trace Normal Neg-Trace [facility] ([place]) Comment on above: Performed By: #### U A #### [place] [address] UA Appear Clear Normal Clear [facility] ([place]) Comment on above: Performed By: #### U A #### [address] [address] UA Blood Trace Normal Neg-Trace [facility] ([place]) Comment on above: Performed By: #### U A #### [address] [address] UA Leuk Est Negative Normal Negative [facility] ([place]) Comment on above: Performed By: #### U A #### [address] [address] UA Nitrite Negative Normal Negative [facility] ([place]) Comment on above: Performed By: #### U A #### [place] [id number] UA pH 6.0 Normal 5.0 - 8.0 [facility] ([place]) Comment on above: Performed By: #### U A #### [place] [id number] UA Protein 30 mg/dL Normal Negative [facility] ([place]) Comment on above: Performed By: #### U A #### [address] [address] UA Spec Grav 1.015 Normal 1.006-1.029 [facility] ([place]) Comment on above: Performed By: #### U A #### [address] [address] UA Specimen Type Clean Catch Normal [facility] ([place]) Comment on above: Performed By: #### U A #### [address] [address] UA Urobilinogen 0.2 E.U./dL Normal 0.2-1.0 [facility] ([place]) Comment on above: Performed By: #### U A #### [address] [address] Urobilinogen (U) [Mass/Vol] Negative Normal Neg-Trace [facility] ([place]) Comment on above: Performed By: #### U A #### [address] [address] .GFRon 05-12-2022 GFR >60 Normal [facility] ([place]) Comment on above: Result Comment: GFR Population [...] meters Performed By: #### G FR, CMP ####[address] [address] GFR Non- 55 ml/min/1.73sqm Normal [facility] ([place]) Comment on above: Result Comment: GFR Population [...] mL/min/1.73 square meters Performed By: #### Susan AKUR, CMP ####[address] [address] CMPon 05-12-2022 Albumin Level 2.5 G/dL Low 3.2-4.8 [facility] ([place]) Comment on above: Performed By: #### Susan KAUR, CMP #### [address] [address] Albumin/Globulin [Mass ratio] 0.5 {ratio} Low 0.9-1.6 [facility] ([place]) Comment on above: Performed By: #### Susan KAUR, CMP #### [address] [address] ALP [Catalytic activity/Vol] 757 U/L High 38-126 [facility] ([place]) Comment on above: Performed By: #### Susan KAUR, CMP #### [address] [address] ALT [Catalytic activity/Vol] 31 U/L Normal 12-55 [facility] ([place]) Comment on above: Performed By: #### Susan KAUR, CMP #### [address] [address] AST [Catalytic activity/Vol] 43 U/L High 8-34 [facility] ([place]) Comment on above: Performed By: #### Susan KAUR, CMP #### [address] [address] Bili Total 0.70 mg/dL Normal 0.20-1.20 [facility] ([place]) Comment on above: Result Comment: Use of this assay is not recommended for patients undergoing treatment with eltrombopag due to the potential for falsely elevated results. Performed By: #### G FR, CMP #### [place] [id number] BUN/Creatinine Ratio 33.6 ratio High 10.0-22.0 [facility] ([place]) Comment on above: Performed By: #### G FR, CMP #### [address] [address] Calcium [Mass/Vol] 7.8 mg/dL Low 8.7-10.4 [facility] ([place]) Comment on above: Performed By: #### G FR, CMP #### [address] [address] Chloride [Moles/Vol] 96 mmol/L Low 98-110 [facility] ([place]) Comment on above: Performed By: #### G FR, CMP #### [place] [id number] CO2 [Moles/Vol] 25 mmol/L Normal 22-32 [facility] ([place]) Comment on above: Performed By: #### G FR, CMP #### [place] [id number] Creatinine [Mass/Vol] 1.52 mg/dL High 0.60-1.40 [facility] ([place]) Comment on above: Performed By: #### G FR, CMP #### [place] [id number] Electrolyte Balance 9.0 mEq/L Normal 4.0-15.0 [facility] ([place]) Comment on above: Performed By: #### G FR, CMP #### [address] [address] Globulin 4.7 G/dL High 1.5-3.8 [facility] ([place]) Comment on above: Performed By: #### G FR, CMP #### [place] [id number] Glucose [Mass/Vol] 259 mg/dL High 70-110 [facility] ([place]) Comment on above: Performed By: #### G FR, CMP #### [address] [place], [place] [address] Potassium [Moles/Vol] 4.8 mmol/L Normal 3.5-5.0 [facility] ([place]) Comment on above: Performed By: #### G , CMP #### [address] [address] Sodium [Moles/Vol] 130 mmol/L Low 136-145 [facility] ([place]) Comment on above: Performed By: #### G , CMP #### [address] [address] Total Protein 7.2 G/dL Normal 5.7-8.2 [facility] ([place]) Comment on above: Result Comment: No te - New Reference Range in effect 20 Performed By: #### G , CMP #### [address] [address] Urea nitrogen [Mass/Vol] 51.0 mg/dL High 8.0-22.0 [facility] ([place]) Comment on above: Performed By: #### Susan KAUR, CMP #### [address] [address] Complete Blood Counton 05-12 Differential Complete Manual [facility] Erythrocyte distribution width (RBC) [Ratio] 13.3 % 0 - 14.4 % [facility] Hematocrit (Bld) [Volume fraction] 46.1 % 41 - 50 % [facility] Hemoglobin (Bld) [Mass/Vol] 16.2 g/dL 13.5 - 16.5 g/dl [facility] Immature granulocytes/100 WBC (Bld) 0.5 % [facility] Comment on above: Immature Granulocyte Percent includes promyelocytes, myelocytes, and metamyelocytes. IG% > 1.0 indicates a left shift is present. With automated differentials, bands are included in the neutrophil count and not in the Immature Granulocyte Percent. MCH (RBC) [Entitic mass] 31.6 pg 26 - 34 pg [facility] MCHC 35.1 % 31 - 37 % [facility] MCV (RBC) [Entitic vol] 90.0 fL 80 - 100 fl [facility] Nucleated RBC/100 WBC (Bld) [Ratio] 0 % -1 - 0 % [facility] Platelet mean volume (Bld) [Entitic vol] 9.6 fL [facility] Comment on above: MPV is platelet range and age dependent Platelets (Bld) [#/Vol] 303 10*3/uL [facility] RBC (Bld) [#/Vol] 5.12 10*6/uL [facility] WBC (Bld) [#/Vol] 20.8 10*3/uL High [facility] Comprehensive metabolic pane richard 05-12-2022 Albumin [Mass/Vol] 3.0 g/dL Low 3.5 - 5 g/dL [facility] ALP [Catalytic activity/Vol] 889 U/L High 40 - 129 U/L [facility] Comment on above: Hemolysis detected. Results may be falsely decreased. Interpret results with caution. ALT [Catalytic activity/Vol] 38 U/L 0 - 46 U/L [facility] Comment on above: Hemolysis detected. Results may be impacted variably as either falsely elevated or falsely decreased. Interpret results with caution. AST [Catalytic activity/Vol] 77 U/L High 0 - 37 U/L [facility] Comment on above: Hemolysis detected. Results may be falsely elevated. Interpret results with caution. Bilirubin [Mass/Vol] 1.0 mg/dL [facility] Calcium [Mass/Vol] 8.1 mg/dL 7.6 - 11 mg/dL [facility] Chloride [Moles/Vol] 88 mmol/L Low 96 - 10 8 mmol/L [facility] CO2 [Moles/Vol] 14.2 mmol/L Low 22 - 29 mmol/L [facility] Creatinine [Mass/Vol] 1.78 mg/dL High 0.7 - 1.2 mg/dL [facility] Glucose [Mass/Vol] 324 mg/dL High 70 - 99 mg/dL [facility] Comment on above: Criteria for Diagnos is [...] mmol/L Critically high 3.3 - 5.1 mmol/L [facility] Comment on above: Hemolysis detected. Results may be falsely elevated. Interpret results with caution. Critical value called To and Read back by: [id number] Protein [Mass/Vol] 8.3 g/dL 5.9 - 8.4 g/dL [facility] Sodium [Moles/Vol] 131 mmol/L Low 133 - 145 mmol/L [facility] Urea nitrogen [Mass/Vol] 45 mg/dL High 4 - 19 mg/dL [facility] Glucose by meteron 2 Glucose [Mass/Vol] 369 mg/dL High 70 - 99 mg/dL [facility] Comment on above: Bedside glucose is a screening procedure. The bedside glucose strip is calibrated to deliver plasma glucose levels. Glucose meter values <45 mg/dl and >450 mg/dl must be confirmed with a plasma or whole blood glucose performed in the lab. Whole blood glucose results are 10-15% lower than plasma glucose results. Glucose [Mass/Vol] 334 mg/dL High 70 - 99 mg/dL [facility] Comment on above: Bedside glucose is a screening procedure. The bedside glucose strip is calibrated to deliver plasma glucose levels. Glucose meter values <45 mg/dl and >450 mg/dl must be confirmed with a plasma or whole blood glucose performed in the lab. Whole blood glucose results are 10-15% lower than plasma glucose results. Glucose [Mass/Vol] 427 mg/dL High 70 - 99 mg/dL [facility] Comment on above: Bedside glucose is a screening procedure. The bedside glucose strip is calibrated to deliver plasma glucose levels. Glucose meter values <45 mg/dl and >450 mg/dl must be confirmed with a plasma or whole blood glucose performed in the lab. Whole blood glucose results are 10-15% lower than plasma glucose results. Interpretation and review of laboratory results Abnormal [facility] LABORATORYOrdered By: Lola Bains on 05-12-2022 Appearance [...] 9 U/L Low 13 - 95 U/L [facility] Manual Differentialon 2021 % Metamyelocytes 0 % 0 - 0 % [facility] % Myelocytes 0 % 0 - 0 % [facility] % Promyelocytes 0 % 0 - 0 % [facility] Absolute Neutrophil No. 20.2 High [facility] Anisocytosis Slight [facility] Band Neutrophil 11 % 5 - 11 % [facility] Lymphocytes 3 % Low 24 - 44 % [facility] Poikilocytosis Slight [facility] Segmented Neutrophils 86 % High 35 - 66 % [facility] No Panel Informationon 05-12 Interpretation and review of laboratory results Abnormal [facility] Interpretation and review of laboratory results Abnormal [facility] Release to patient->Automatic ACH LAB [facility] Interpretation and review of laboratory results Abnormal [facility] Release to patient->Automatic ACH LAB [facility] Potassium,WBon 05-12-2022 Interpretation and review of laboratory results Abnormal [facility] Potassium, WB 6.0 Critically high [facility] Release to patient->Automatic ACH LAB [facility] Respiratory Panel Film Array on 05-12-2022 Respiratory pathogens DNA and RNA panel PABLO+non-probe (Nph) See Below [facility] Comment on above: Source: NPH Collecte d: 05/12/22 09:55 Site: Nose Received : 05/12/22 11:42 Respiratory Panel Film Array FINAL 05/12/22 12:46 - NEGATIVE: No SARS-CoV-2 detected. NEGATIVE: No respiratory pathogens were detected. - The Film Array Respiratory Panel detects DNA or RNA for the following organisms: Adenovirus [id number] Coronavirus 229E Coronavirus HKU1 Coronavirus NL63 Coronavirus [...] history, and epidemiological information. - Method: The [facility] Respiratory Panel 2.1 (RP2.1) is a multiplexed nucleic acid test intended for the simultaneous qualitative detection and differentiation of nucleic acids from multiple viral and bacterial respiratory organisms, including nucleic acid from Severe Acute Respiratory Syndrome Coronavirus 2 (SARS-CoV-2). This test is FDA [place] authorized. [facility] 05-12-2022 Color (U) Yellow Normal [facility] ([place]) Comment on above: Performed By: #### U A #### [place] [address] Glucose (U) [Mass/Vol] 250 mg/dL Abnormal Negative [facility] ([place]) Comment on above: Performed By: #### U A #### [place] [address] Ketones Ql (U) 15 mg/dL Abnormal Neg-Trace [facility] ([place]) Comment on above: Performed By: #### U A #### [place] [address] UA Appear Clear Normal Clear [facility] ([place]) Comment on above: Performed By: #### U A #### [place] [address] UA Blood Trace Normal Neg-Trace [facility] ([place]) Comment on above: Performed By: #### U A #### [place] [address] UA Leuk Est Negative Normal Negative [facility] ([place]) Comment on above: Performed By: #### U A #### [place] [id number] UA Nitrite Negative Normal Negative [facility] ([place]) Comment on above: Performed By: #### U A #### [place] [address] UA pH 5.0 Normal 5.0 - 8.0 [facility] ([place]) Comment on above: Performed By: #### U A #### [place] [address] UA Protein 30 mg/dL Normal Negative [facility] ([place]) Comment on above: Performed By: #### U A #### [place] [address] UA Spec Grav 1.015 Normal 1.006-1.029 [facility] ([place]) Comment on above: Performed By: #### U A #### [facility] [address] [place] [address] UA Specimen Type Clean Catch Normal [facility] ([place]) Comment on above: Performed By: #### U A #### [facility] [address] [place] [address] UA Urobilinogen 0.2 E.U./dL Normal 0.2-1.0 [facility] ([place]) Comment on above: Performed By: #### U A #### [facility] [address] [place] [address] Urobilinogen (U) [Mass/Vol] Negative Normal Neg-Trace [facility] ([place]) Comment on above: Performed By: #### U A #### [address] [address] XR Abdomen 2 Viewson IMPRESSION: There ar [...] has been created using voice recognition software [facility] CLINICAL HISTORY: abdominal pain, vomiting, concern for JOSE COMPARISON: 06/15/2019 TECHNIQUE: ABDOMEN [address] [facility] Fredo Brady MD - 05/12/2022 CLINICAL [...] has been created using voice recognition software [facility] Radiology Study observation (narrative) [facility] XR Abdomen 2 ViewsOrdered By : Fredo Brady on 05-12-2022 [facility] Work Phone: XR CHEST 1 VIEWon 05-12-2022 XR CHEST 1 VIEW ORIGINAL Images acquired, not reported on this accession number. Normal [facility] ([place]) XR Chest Single viewon 05-12 IMPRESSION: There [...] has been created using voice recognition software [facility] CLINICAL HISTORY: CF pulmonary exacerbation COMPARISON: 06/15/2019, 03/19/2021, 12/06/2021, 01/14/2022 TECHNIQUE: CHEST AP ONLY [facility] Fredo Brady MD - 05/12/2022 CLINICAL [...] has been created using voice recognition software [facility] Radiology Study observation (narrative) [facility] Vital Signs Date Time Vital Sign Value Performing Clinician Facility 02-14-2025 14:02-0400 Body height 156.5 cm Stephie Ramirez APRN.CNP Work Phone: [facility] 02-14-2025 14:02-0400 Body mass index (BMI) [Ratio] 16.21 kg/m2 Stephie Ramirez APRN.CNP Work Phone: [facility] 02-14-2025 14:02-0400 Body weight 39.69 kg Stephie Ramirez APRN.TUNNEL WORKER Work Phone: [facility] 02-14-2025 14:02-0400 Diastolic blood pressure 83 mm[Hg] Stephie Ramirez METALWORKING INSTRUCTOR.TUNNEL WORKER Work Phone: [facility] 02-14-2025 14:02-0400 Heart rate 85 /min Stephie Ramirez METALWORKING INSTRUCTOR.TUNNEL WORKER Work Phone: [facility] 02-14-2025 14:02-0400 Systolic blood pressure 131 mm[Hg] Stephie Ramirez METALWORKING INSTRUCTOR.TUNNEL WORKER Work Phone: [facility] 02-09-2025 10:22-0400 Body mass index (BMI) [Ratio] 15.73 kg/m2 Sally Buccecily METALWORKING INSTRUCTOR.TUNNEL WORKER Work Phone: [facility] 02-09-2025 10:22-0400 Body temperature 98.2 [degF] Sally Bucur METALWORKING INSTRUCTOR.TUNNEL WORKER Work Phone: [facility] 02-09-2025 10:22-0400 Body weight 38.5 kg Sally Bucur METALWORKING INSTRUCTOR.TUNNEL WORKER Work Phone: [facility] 02-09-2025 10:22-0400 Diastolic blood pressure 61 mm[Hg] Sally Bucur METALWORKING INSTRUCTOR.TUNNEL WORKER Work Phone: [facility] 02-09-2025 10:22-0400 Heart rate 97 /min Sally Bucur METALWORKING INSTRUCTOR.TUNNEL WORKER Work Phone: [facility] 02-09-2025 10:22-0400 Respiratory rate 16 /min Sally Bucur METALWORKING INSTRUCTOR.TUNNEL WORKER Work Phone: [facility] 02-09-2025 10:22-0400 SaO2% (BldA) [Mass fraction] 97 % Sally Bucur METALWORKING INSTRUCTOR.TUNNEL WORKER Work Phone: [facility] 02-09-2025 10:22-0400 Systolic blood pressure 103 mm[Hg] Sally Bucur METALWORKING INSTRUCTOR.TUNNEL WORKER Work Phone: [facility] 02-07-2025 10:36-0400 Body mass index (BMI) [Ratio] 15.89 kg/m2 Farrukh Gomes MD Work Phone: [facility] 02-07-2025 10:36-0400 Body temperature 100.2 [degF] Farrukh Gomes MD Work Phone: [facility] 02-07-2025 10:36-0400 Body weight 38.9 kg Farrukh Gomes MD Work Phone: [facility] 02-07-2025 10:36-0400 Diastolic blood pressure 82 mm[Hg] Farrukh Gomes MD Work Phone: [facility] 02-07-2025 10:36-0400 Heart rate 98 /min Farrukh Gomes MD Work Phone: [facility] 02-07-2025 10:36-0400 Respiratory rate 16 /min Farrukh Gomes MD Work Phone: [facility] 02-07-2025 10:36-0400 SaO2% (BldA) [Mass fraction] 95 % Farrukh Gomes MD Work Phone: [facility] 02-07-2025 10:36-0400 Systolic blood pressure 128 mm[Hg] Farrukh Gomes MD Work Phone: [facility] 01-05-2025 13:16-0500 Body height 156.5 cm Jean Pierre Kilgore MD Work Phone: [facility] 01-05-2025 13:16-0500 Body mass index (BMI) [Ratio] 16.63 kg/m2 Jean Pierre Kilgore MD Work Phone: [facility] 01-05-2025 13:16-0500 Body temperature 99 [degF] Jean Pierre Kilgore MD Work Phone: [facility] 01-05-2025 13:16-0500 Body weight 40.7 kg Jean Pierre Kilgore MD Work Phone: [facility] 01-05-2025 13:16-0500 Diastolic blood pressure 100 mm[Hg] Jean Pierre Kilgore MD Work Phone: [facility] 01-05-2025 13:16-0500 Heart rate 80 /min Jean Pierre Kilgore MD Work Phone: [facility] 01-05-2025 13:16-0500 Respiratory rate 18 /min Jean Pierre Kilgore MD Work Phone: [facility] 01-05-2025 13:16-0500 SaO2% (BldA) [Mass fraction] 95 % Jean Pierre Kilgore MD Work Phone: [facility] 01-05-2025 13:16-0500 Systolic blood pressure 160 mm[Hg] Jean Pierre Kilgore MD Work Phone: [facility] 10-12-2024 13:42-0500 Body height 157.5 cm Stephie Ramirez APRN.TUNNEL WORKER Work Phone: [facility] 10-12-2024 13:42-0500 Body mass index (BMI) [Ratio] 16.04 kg/m2 Stephie Ramirez APRN.TUNNEL WORKER Work Phone: [facility] 10-12-2024 13:42-0500 Body weight 39.78 kg Stephie Ramirez APRN.TUNNEL WORKER Work Phone: [facility] 10-12-2024 13:42-0500 Diastolic blood pressure 80 mm[Hg] Stephie Ramirez APRN.TUNNEL WORKER Work Phone: [facility] 10-12-2024 13:42-0500 Systolic blood pressure 136 mm[Hg] Stephie Ramirez APRN.TUNNEL WORKER Work Phone: [facility] 10-06-2024 12:08-0500 Body mass index (BMI) [Ratio] 15.28 kg/m2 Sally Schneider METALWORKING INSTRUCTOR.TUNNEL WORKER Work Phone: [facility] 10-06-2024 12:08-0500 Body weight 37.9 kg Sally Schneider METALWORKING INSTRUCTOR.TUNNEL WORKER Work Phone: [facility] 10-06-2024 12:08-0500 Diastolic blood pressure 86 mm[Hg] Sally Bucur METALWORKING INSTRUCTOR.TUNNEL WORKER Work Phone: [facility] 10-06-2024 12:08-0500 Heart rate 79 /min Sally Bucur METALWORKING INSTRUCTOR.TUNNEL WORKER Work Phone: [facility] 10-06-2024 12:08-0500 Respiratory rate 17 /min Sally Bucur METALWORKING INSTRUCTOR.TUNNEL WORKER Work Phone: [facility] 10-06-2024 12:08-0500 SaO2% (BldA) [Mass fraction] 94 % Sally Bucur METALWORKING INSTRUCTOR.TUNNEL WORKER Work Phone: [facility] 10-06-2024 12:08-0500 Systolic blood pressure 128 mm[Hg] Sally Bucur METALWORKING INSTRUCTOR.TUNNEL WORKER Work Phone: [facility] 09-09-2024 12:05-0400 Body mass index (BMI) [Ratio] 15.44 kg/m2 Sally Bucur METALWORKING INSTRUCTOR.TUNNEL WORKER Work Phone: [facility] 09-09-2024 12:05-0400 Body temperature 98.29 [degF] Sally Bucur METALWORKING INSTRUCTOR.TUNNEL WORKER Work Phone: [facility] 09-09-2024 12:05-0400 Body weight 38.3 kg Sally Bucur METALWORKING INSTRUCTOR.TUNNEL WORKER Work Phone: [facility] 09-09-2024 12:05-0400 Diastolic blood pressure 80 mm[Hg] Sally Bucur METALWORKING INSTRUCTOR.TUNNEL WORKER Work Phone: [facility] 09-09-2024 12:05-0400 Heart rate 99 /min Sally Bucur METALWORKING INSTRUCTOR.TUNNEL WORKER Work Phone: [facility] 09-09-2024 12:05-0400 Respiratory rate 18 /min Sally Bucur METALWORKING INSTRUCTOR.TUNNEL WORKER Work Phone: [facility] 09-09-2024 12:05-0400 SaO2% (BldA) [Mass fraction] 93 % Sally Schneider METALWORKING INSTRUCTOR.TUNNEL WORKER Work Phone: [facility] 09-09-2024 12:05-0400 Systolic blood pressure 130 mm[Hg] Sally Schneider APRN.TUNNEL WORKER Work Phone: [facility] 08-18-2024 13:25-0400 Body height 157.5 cm Jean Pierre Kilgore MD Work Phone: [facility] 08-18-2024 13:25-0400 Body mass index (BMI) [Ratio] 15.6 kg/m2 Jean Pierre Kilgore MD Work Phone: [facility] 08-18-2024 13:25-0400 Body temperature 98.01 [degF] Jean Pierre Kilgore MD Work Phone: [facility] 08-18-2024 13:25-0400 Body weight 38.7 kg Jean Pierre Kilgore MD Work Phone: [facility] 08-18-2024 13:25-0400 Diastolic blood pressure 88 mm[Hg] Jean Pierre Kilgore MD Work Phone: [facility] 08-18-2024 13:25-0400 Heart rate 90 /min Jean Pierre Kilgore MD Work Phone: [facility] 08-18-2024 13:25-0400 Respiratory rate 16 /min Jean Pierre Kilgore MD Work Phone: [facility] 08-18-2024 13:25-0400 SaO2% (BldA) [Mass fraction] 98 % Jean Pierre Kilgore MD Work Phone: [facility] 08-18-2024 13:25-0400 Systolic blood pressure 142 mm[Hg] Jean Pierre Kilgore MD Work Phone: [facility] 07-06-2024 13:37-0400 Body height 157.5 cm Stephie Ramirez APRN.TUNNEL WORKER Work Phone: [facility] 07-06-2024 13:37-0400 Body mass index (BMI) [Ratio] 17.1 kg/m2 Stephie Darrian BRO.TUNNEL WORKER Work Phone: [facility] 07-06-2024 13:37-0400 Body weight 42.41 kg Stephie Sortobruce RIZON.TUNNEL WORKER Work Phone: [facility] 07-06-2024 13:37-0400 Diastolic blood pressure 92 mm[Hg] Stephie Lundyartney METALWORKING INSTRUCTOR.TUNNEL WORKER Work Phone: [facility] 07-06-2024 13:37-0400 Systolic blood pressure 156 mm[Hg] Stephie Lundyartney METALWORKING INSTRUCTOR.TUNNEL WORKER Work Phone: [facility] 05-10-2024 11:23-0400 Body height 157.[address] Work Phone: [facility] 05-10-2024 11:23-0400 Body mass index (BMI) [Ratio] 17.38 kg/m2 Fernando Leatha RD Work Phone: [facility] 05-10-2024 11:23-0400 Body weight 43.[address] Work Phone: [facility] 05-05-2024 14:22-0400 Body mass index (BMI) [Ratio] 17.42 kg/m2 Jean Pierre Kilgroe MD Work Phone: [facility] 05-05-2024 14:22-0400 Body weight 43.2 kg Jean Pierre Kilgore MD Work Phone: [facility] 05-05-2024 14:22-0400 Diastolic blood pressure 98 mm[Hg] Jean Pierre iKlgore MD Work Phone: [facility] 05-05-2024 14:22-0400 Heart rate 89 /min Jean Pierre Kilgore MD Work Phone: [facility] 05-05-2024 14:22-0400 Respiratory rate 18 /min Jean Pierre Kilgore MD Work Phone: [facility] 05-05-2024 14:22-0400 SaO2% (BldA) [Mass fraction] 96 % Jean Pierre Kilgore MD Work Phone: [facility] 05-05-2024 14:22-0400 Systolic blood pressure 153 mm[Hg] Jean Pierre Kilgore MD Work Phone: [facility] 04-07-2024 [id number] Body height 157.5 cm Tia Lindo MD Work Phone: [facility] 04-07-2024 13:29-0400 Body mass index (BMI) [Ratio] 17.34 kg/m2 Tia Lindo MD Work Phone: [facility] 04-07-2024 [id number] Body temperature 99.5 [degF] Tia Lindo MD Work Phone: [facility] 04-07-2024 [id number] Body weight 43 kg Tia Lindo MD Work Phone: [facility] 04-07-2024 13:29-0400 Diastolic blood pressure 78 mm[Hg] Tia Lindo MD Work Phone: [facility] 04-07-2024 13:290400 Heart rate 87 /min Tia Lindo MD Work Phone: [facility] 04-07-2024 13:29-0400 SaO2% (BldA) [Mass fraction] 97 % Tia Lindo MD Work Phone: [facility] 04-07-2024 13:29-0400 Systolic blood pressure 135 mm[Hg] Tia Lindo MD Work Phone: [facility] 03-09-2024 [id number] Body height 157.5 cm Stephie Ramirez APRN.CNP Work Phone: [facility] 03-09-2024 [id number] Body weight 41.01 kg Stephie Ramirez APRN.CNP Work Phone: [facility] 03-09-2024 13:26-0400 Diastolic blood pressure 76 mm[Hg] Stephie Ramirez APRN.CNP Work Phone: [facility] 03-09-2024 13:26-0400 Systolic blood pressure 128 mm[Hg] Stephie Ramirez APRN.TUNNEL WORKER Work Phone: [facility] 02-25-2024 15:20-0400 Body height 157.5 cm Jean Pierre Kilgore MD Work Phone: [facility] 02-25-2024 15:20-0400 Body mass index (BMI) [Ratio] 16.29 kg/m2 Jean Pierre Kilgore MD Work Phone: [facility] 02-25-2024 15:20-0400 Body temperature 98.49 [degF] Jean Pierre Kilgore MD Work Phone: [facility] 02-25-2024 15:20-0400 Body weight 40.4 kg Jean Pierre Kilgore MD Work Phone: [facility] 02-25-2024 15:20-0400 Diastolic blood pressure 80 mm[Hg] Jean Pierre Kilgore MD Work Phone: [facility] 02-25-2024 15:20-0400 Heart rate 84 /min Jean Pierre Kilgore MD Work Phone: [facility] 02-25-2024 15:20-0400 SaO2% (BldA) [Mass fraction] 95 % Jean Pierre Kilgore MD Work Phone: [facility] 02-25-2024 15:20-0400 Systolic blood pressure 126 mm[Hg] Jean Pierre Kilgore MD Work Phone: [facility] 09-24-2023 08:17-0400 Body height 160 cm She Pete DO Work Phone: [facility] 09-24-2023 08:17-0400 Body temperature 98.6 [degF] She Pete DO Work Phone: [facility] 09-24-2023 08:17-0400 Body weight 39.69 kg Seh Pete DO Work Phone: [facility] 09-24-2023 08:17-0400 Diastolic blood pressure 60 mm[Hg] She Pete DO Work Phone: [facility] 09-24-2023 08:17-0400 Heart rate 106 /min She Pete DO Work Phone: [facility] 09-24-2023 08:17-0400 SaO2% (BldA) [Mass fraction] 95 % She Pete DO Work Phone: [facility] 09-24-2023 08:17-0400 Systolic blood pressure 100 mm[Hg] She Pete DO Work Phone: [facility] 08-18-2023 11:20-0400 Body height 158 cm Fredo Masci DO Work Phone: [facility] 08-18-2023 11:20-0400 Body temperature 100.6 [degF] Fredo Masci DO Work Phone: [facility] 08-18-2023 11:20-0400 Body weight 37.65 kg Fredo Masci DO Work Phone: [facility] 08-18-2023 11:20-0400 Diastolic blood pressure 96 mm[Hg] Fredo Masci DO Work Phone: [facility] 08-18-2023 11:20-0400 Heart rate 125 /min Fredo Masci DO Work Phone: [facility] 08-18-2023 11:20-0400 SaO2% (BldA) [Mass fraction] 97 % Fredo Masci DO Work Phone: [facility] 08-18-2023 11:20-0400 Systolic blood pressure 147 mm[Hg] Fredo Masci DO Work Phone: [facility] 08-11-2023 13:34-0400 Body height 157.5 cm Stephie Ramirez APRN.TUNNEL WORKER Work Phone: [facility] 08-11-2023 13:34-0400 Body weight 39.96 kg Stephie Ramirez APRN.TUNNEL WORKER Work Phone: [facility] 08-11-2023 13:34-0400 Diastolic blood pressure 82 mm[Hg] Stephie Ramirez METALWORKING INSTRUCTOR.TUNNEL WORKER Work Phone: [facility] 08-11-2023 13:34-0400 Systolic blood pressure 140 mm[Hg] Stephie Ramirez METALWORKING INSTRUCTOR.TUNNEL WORKER Work Phone: [facility] 07-02-2023 13:04-0400 Body temperature 101.5 [degF] Sally Bucur METALWORKING INSTRUCTOR.TUNNEL WORKER Work Phone: [facility] 07-02-2023 13:04-0400 Body weight 39.5 kg Sally Bucur METALWORKING INSTRUCTOR.TUNNEL WORKER Work Phone: [facility] 07-02-2023 13:04-0400 Diastolic blood pressure 65 mm[Hg] Sally Bucur METALWORKING INSTRUCTOR.TUNNEL WORKER Work Phone: [facility] 07-02-2023 13:04-0400 Heart rate 118 /min Sally Bucur METALWORKING INSTRUCTOR.TUNNEL WORKER Work Phone: [facility] 07-02-2023 13:04-0400 Respiratory rate 16 /min Sally Bucur METALWORKING INSTRUCTOR.TUNNEL WORKER Work Phone: [facility] 07-02-2023 13:04-0400 SaO2% (BldA) [Mass fraction] 92 % Sally Bucur METALWORKING INSTRUCTOR.TUNNEL WORKER Work Phone: [facility] 07-02-2023 13:04-0400 Systolic blood pressure 110 mm[Hg] Sally Bucur METALWORKING INSTRUCTOR.TUNNEL WORKER Work Phone: [facility] 06-04-2023 15:23-0400 Body height 158.5 cm Jean Pierre Kilgore MD Work Phone: [facility] 06-04-2023 15:23-0400 Body temperature 99 [degF] Jean Pierre Kilgore MD Work Phone: [facility] 06-04-2023 15:23-0400 Body weight 40.51 kg Jean Pierre Kilgore MD Work Phone: [facility] 06-04-2023 15:23-0400 Diastolic blood pressure 70 mm[Hg] Jean Pierre Kilgore MD Work Phone: [facility] 06-04-2023 15:23-0400 Heart rate 86 /min Jean Pierre Kilgore MD Work Phone: [facility] 06-04-2023 15:23-0400 Respiratory rate 19 /min Jean Pierre Kilgore MD Work Phone: [facility] 06-04-2023 15:23-0400 SaO2% (BldA) [Mass fraction] 98 % Jean Pierre Kilgore MD Work Phone: [facility] 06-04-2023 15:23-0400 Systolic blood pressure 110 mm[Hg] Jean Pierre Kilgore MD Work Phone: [facility] 04-07-2023 14:28-0400 Body height 157.5 cm Stephie Ramirez APRN.TUNNEL WORKER Work Phone: [facility] 04-07-2023 14:28-0400 Body weight 42.09 kg Stephie Ramirez APRN.TUNNEL WORKER Work Phone: [facility] 04-07-2023 14:28-0400 Diastolic blood pressure 78 mm[Hg] Stephie Ramirez APRN.TUNNEL WORKER Work Phone: [facility] 04-07-2023 14:28-0400 Systolic blood pressure 148 mm[Hg] Stephie Ramirez APRN.TUNNEL WORKER Work Phone: [facility] 04-01-2023 15:08-0400 Diastolic blood pressure 98 mm[Hg] Lab/Port Wstr Work Phone: [facility] 04-01-2023 15:08-0400 Heart rate 96 /min Lab/[facility] Work Phone: [facility] 04-01-2023 15:08-0400 SaO2% (BldA) [Mass fraction] 100 % [facility] Work Phone: [facility] 04-01-2023 15:08-0400 Systolic blood pressure 150 mm[Hg] Lab/[facility]str Work Phone: [facility] 03-20-2023 12:02-0400 Body height 157.[address] Work Phone: [facility] 03-20-2023 12:02-0400 Body weight 40.[address] Work Phone: [facility] 03-19-2023 15:50-0400 Body height 157.5 cm She Benninger DO Work Phone: [facility] 03-19-2023 15:50-0400 Body temperature 98.01 [degF] She Benninger DO Work Phone: [facility] 03-19-2023 15:50-0400 Body weight 41 kg She Benninger DO Work Phone: [facility] 03-19-2023 15:50-0400 Diastolic blood pressure 80 mm[Hg] She Benninger DO Work Phone: [facility] 03-19-2023 15:50-0400 Heart rate 85 /min She Benninger DO Work Phone: [facility] 03-19-2023 15:50-0400 Respiratory rate 18 /min She Benninger DO Work Phone: [facility] 03-19-2023 15:50-0400 SaO2% (BldA) [Mass fraction] 98 % She Benninger DO Work Phone: [facility] 03-19-2023 15:50-0400 Systolic blood pressure 140 mm[Hg] She Benninger DO Work Phone: [facility] 03-05-2023 15:59-0400 Body height 157.5 cm Jean Pierre Kilgore MD Work Phone: [facility] 03-05-2023 15:59-0400 Body temperature 98.01 [degF] Jean Pierre Kilgore MD Work Phone: [facility] 03-05-2023 15:59-0400 Body weight 39.4 kg Jean Pierre Kilgore MD Work Phone: [facility] 03-05-2023 15:59-0400 Diastolic blood pressure 90 mm[Hg] Jean Pierre Kilgore MD Work Phone: [facility] 03-05-2023 15:59-0400 Heart rate 105 /min Jean Pierre Kilgore MD Work Phone: [facility] 03-05-2023 15:59-0400 Respiratory rate 24 /min Jean Pierre Kilgore MD Work Phone: [facility] 03-05-2023 15:59-0400 SaO2% (BldA) [Mass fraction] 97 % Jean Pierre Kilgore MD Work Phone: [facility] 03-05-2023 15:59-0400 Systolic blood pressure 140 mm[Hg] Jean Pierre Kilgore MD Work Phone: [facility] 02-26-2023 14:09-0400 Body temperature 97.81 [degF] Jean Pierre Kilgore MD Work Phone: [facility] 02-26-2023 14:09-0400 Body weight 38.92 kg Jean Pierre Kilgore MD Work Phone: [facility] 02-26-2023 14:09-0400 Diastolic blood pressure 60 mm[Hg] Jean Pierre Kilgore MD Work Phone: [facility] 02-26-2023 14:09-0400 Heart rate 91 /min Jean Pierre Kilgore MD Work Phone: [facility] 02-26-2023 14:09-0400 Respiratory rate 19 /min Jean Pierre Kilgore MD Work Phone: [facility] 02-26-2023 14:09-0400 SaO2% (BldA) [Mass fraction] 97 % Jean Pierre Kilgore MD Work Phone: [facility] 02-26-2023 14:09-0400 Systolic blood pressure 118 mm[Hg] Jean Pierre Kilgore MD Work Phone: [facility] 12-20-2022 12:59-0500 Body height 157.5 cm Stephie Ramirez APRN.TUNNEL WORKER Work Phone: [facility] 12-20-2022 12:59-0500 Body weight 40.55 kg Stephie Ramirez APRN.TUNNEL WORKER Work Phone: [facility] 12-20-2022 12:59-0500 Diastolic blood pressure 80 mm[Hg] Stephie Ramirez APRN.TUNNEL WORKER Work Phone: [facility] 12-20-2022 12:59-0500 Systolic blood pressure 142 mm[Hg] Stephie Ramirez APRN.TUNNEL WORKER Work Phone: [facility] 12-05-2022 15:11-0500 Body temperature 97.5 [degF] [facility] Work Phone: 12-05-2022 15:11-0500 Diastolic blood pressure 97 mm[Hg] [facility] Work Phone: 12-05-2022 15:11-0500 Heart rate 92 /min [facility] Work Phone: 12-05-2022 15:11-0500 Respiratory rate 14 /min [facility] Work Phone: 12-05-2022 15:11-0500 SaO2% (BldA) [Mass fraction] 98 % [facility] Work Phone: 12-05-2022 15:11-0500 Systolic blood pressure 138 mm[Hg] [facility] Work Phone: 12-04-2022 15:38-0500 Body height 157.5 cm Jean Pierre Kilgore MD Work Phone: [facility] 12-04-2022 15:38-0500 Body temperature 99.39 [degF] Jean Pierre Kilgore MD Work Phone: [facility] 12-04-2022 15:38-0500 Body weight 40.61 kg Jean Pierre Kilgore MD Work Phone: [facility] 12-04-2022 15:38-0500 Diastolic blood pressure 90 mm[Hg] Jean Pierre Kilgore MD Work Phone: [facility] 12-04-2022 15:38-0500 Heart rate 100 /min Jean Pierre Kilgore MD Work Phone: [facility] 12-04-2022 15:38-0500 Respiratory rate 19 /min Jean Pierre Kilgore MD Work Phone: [facility] 12-04-2022 15:38-0500 SaO2% (BldA) [Mass fraction] 96 % Jean Pierre Kilgore MD Work Phone: [facility] 12-04-2022 15:38-0500 Systolic blood pressure 140 mm[Hg] Jean Pierre Kilgore MD Work Phone: [facility] 11-20-2022 08:19-0500 Body height 157.5 cm She Benninger DO Work Phone: [facility] 11-20-2022 08:19-0500 Body temperature 98.8 [degF] She Benninger DO Work Phone: [facility] 11-20-2022 08:19-0500 Body weight 39.3 kg She Benninger DO Work Phone: [facility] 11-20-2022 08:19-0500 Diastolic blood pressure 80 mm[Hg] She Benninger DO Work Phone: [facility] 11-20-2022 08:19-0500 Heart rate 100 /min She Benninger DO Work Phone: [facility] 11-20-2022 08:19-0500 Respiratory rate 16 /min She Benninger DO Work Phone: [facility] 11-20-2022 08:19-0500 SaO2% (BldA) [Mass fraction] 95 % She Benninger DO Work Phone: [facility] 11-20-2022 08:19-0500 Systolic blood pressure 118 mm[Hg] She Benninger DO Work Phone: [facility] 09-11-2022 08:47-0400 Body height 157.5 cm She Benninger DO Work Phone: [facility] 09-11-2022 08:47-0400 Body temperature 98.8 [degF] She Hunterninger DO Work Phone: [facility] 09-11-2022 08:47-0400 Body weight 41.59 kg She Bether DO Work Phone: [facility] 09-11-2022 08:47-0400 Diastolic blood pressure 103 mm[Hg] She Daleninger DO Work Phone: [facility] 09-11-2022 08:47-0400 Heart rate 95 /min She Bether DO Work Phone: [facility] 09-11-2022 08:47-0400 SaO2% (BldA) [Mass fraction] 98 % She Bether DO Work Phone: [facility] 09-11-2022 08:47-0400 Systolic blood pressure 153 mm[Hg] She Benninger DO Work Phone: [facility] 08-09-2022 09:55-0400 Body height 157 cm Sally Bucur METALWORKING INSTRUCTOR.TUNNEL WORKER Work Phone: [facility] 08-09-2022 09:55-0400 Body temperature 99.1 [degF] Sally Bucur METALWORKING INSTRUCTOR.TUNNEL WORKER Work Phone: [facility] 08-09-2022 09:55-0400 Body weight 39.4 kg Sally Bucur METALWORKING INSTRUCTOR.TUNNEL WORKER Work Phone: [facility] 08-09-2022 09:55-0400 Diastolic blood pressure 60 mm[Hg] Sally Bucur METALWORKING INSTRUCTOR.TUNNEL WORKER Work Phone: [facility] 08-09-2022 09:55-0400 Heart rate 95 /min Sally Bucur METALWORKING INSTRUCTOR.TUNNEL WORKER Work Phone: [facility] 08-09-2022 09:55-0400 Respiratory rate 17 /min Sally Bucur METALWORKING INSTRUCTOR.TUNNEL WORKER Work Phone: [facility] 08-09-2022 09:55-0400 SaO2% (BldA) [Mass fraction] 98 % Sally Bucur METALWORKING INSTRUCTOR.TUNNEL WORKER Work Phone: [facility] 08-09-2022 09:55-0400 Systolic blood pressure 110 mm[Hg] Sally Bucur METALWORKING INSTRUCTOR.TUNNEL WORKER Work Phone: [facility] 2022 09:31-0400 Body height 157.5 cm She Benninger DO Work Phone: [facility] 2022 09:31-0400 Body temperature 99.5 [degF] She Benninger DO Work Phone: [facility] 2022 09:31-0400 Body weight 38.42 kg She Benninger DO Work Phone: [facility] 2022 09:31-0400 Diastolic blood pressure 76 mm[Hg] She Benninger DO Work Phone: [facility] 2022 09:31-0400 Heart rate 117 /min She Daleninger DO Work Phone: [facility] 2022 09:31-0400 SaO2% (BldA) [Mass fraction] 96 % She Benninger DO Work Phone: [facility] 2022 09:31-0400 Systolic blood pressure 138 mm[Hg] She Benninger DO Work Phone: [facility] 05-14-2022 09:40-0400 Heart rate 80 /min Sabina Larios MD Work Phone: [facility] 05-14-2022 09:40-0400 Respiratory rate 20 /min Sabina Larios MD Work Phone: [facility] 05-14-2022 09:40-0400 SaO2% (BldA) [Mass fraction] 95 % Sabina Larios MD Work Phone: [facility] 05-14-2022 09:20-0400 Body temperature 98.4 [degF] Sabina Larios MD Work Phone: [facility] 05-14-2022 09:20-0400 Diastolic blood pressure 85 mm[Hg] Sabina Larios MD Work Phone: [facility] 05-14-2022 09:20-0400 Systolic blood pressure 144 mm[Hg] Sabina Larios MD Work Phone: [facility] 05-14-2022 02:20-0400 Body height 152 cm CURTIS CISNEROS MD [facility] 05-14-2022 02:20-0400 Body weight 37.9 kg CURTIS CISNEROS MD [facility] 05-14-2022 02:20-0400 Body weight 16.4 kg/m2 CURTIS CISNEROS MD [facility] 05-13-2022 01:23-0400 Body height 152 cm CURTIS CISNEROS MD [facility] 05-13-2022 01:23-0400 Body weight 16.4 kg/m2 CURTIS CISNEROS MD [facility] 05-13-2022 01:23-0400 Body weight 37.9 kg CURTIS CISNEROS MD [facility] 05-12-2022 16:10-0400 Body mass index (BMI) [Ratio] 16.4 kg/m2 Sabina Larios MD Work Phone: [facility] 05-12-2022 16:10-0400 Body weight 37.9 kg Sabina Lraios MD Work Phone: [facility] Encounters Encounter Date Encounter Type Care Provider Facility Start: 04-26-2025 End: 04-26-2025 Orders Only Sally Schneider APRN.TUNNEL WORKER Work Phone: Pulmonary Medicine Comment on above: Cystic fibrosis (HCC ) (Primary Dx) Start: 04-15-2025 End: 04-15-2025 ambulatory FERNANDO ZHANG Facility:[facility] Start: 04-07-2025 End: 04-08-2025 Orders Only Fernando Zhang RD Work Phone: Pulmonary Medicine Comment on above: Cystic fibrosis with pulmonary manifestations (HCC) (Primary Dx) Refill Request Start: 04-06-2025 End: 04-06-2025 Telephone encounter Sally Schneider APRN.TUNNEL WORKER Work Phone: Pulmonary Medicine Comment on above: Underwriting Manager - O ther ([facility]) Start: 04-06-2025 End: 04-06-2025 ambulatory JEAN PIERRE KILGORE Facility:[facility] Start: 04-04-2025 End: 04-04-2025 Chart abstract[address] Fernando Zhang RD Work Phone: Pulmonary Medicine Comment on above: Abstract Cystic fibrosis (HCC ) (Primary Dx) Start: 03-18-2025 End: 03-18-2025 Telephone encounter Varsha LIVE Pulmonary Medicine Comment on above: Prior Authorization Start: 02-15-2025 End: 02-18-2025 Follow-up encounter Sally Schneider APRN.TUNNEL WORKER Work Phone: Pulmonary Medicine Start: 02-14-2025 End: 02-14-2025 Patient encounter procedure Stephie Ramirez APRN.TUNNEL WORKER Work Phone: [facility] Comment on above: Type 1 diabetes xmiena itus with hyperglycemia (HCC) (Primary Dx); 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 Start: 02-10-2025 End: 02-14-2025 Follow-up encounter Sally Schneider APRN.CNP Work Phone: Pulmonary Medicine Start: 02-09-2025 End: 02-09-2025 ambulatory [facility] Facility:[facility] Start: 02-09-2025 End: 02-09-2025 ambulatory [facility] Pulmonary Medicine Comment on above: Spirometry Start: [...] 02-08-2025 End: 04-10-2025 Follow-up encounter Anabel Smart APRN.TUNNEL WORKER Work Phone: [facility] Start: 02-08-2025 End: 02-08-2025 ambulatory [facility] Facility:[facility] Start: 02-07-2025 End: 02-07-2025 Telephone encounter Zaida Santos RN Work Phone: Pulmonary Medicine Start: 02-07-2025 End: 02-07-2025 Subsequent hospital visit by physician Brisa [facility] Work Phone: Radiology Comment on above: Subacute cough [R05. 2] Start: 02-07-2025 End: 02-07-2025 ambulatory FARRUKH GOMES Facility:[facility] Start: 02-07-2025 End: 02-07-2025 Office outpatient visit 25 minutes Farrukh Gomes MD Work Phone: [facility] Comment on above: Sore throat (Primary Dx); Subacute cough; Fever, unspecified fever cause; Cystic fibrosis (HCC) Start: 02-01-2025 End: 02-01-2025 ambulatory [facility] [place] Facility[place] Start: 02-01-2025 End: 02-01-2025 Subsequent hospital visit by physician Xr [facility] Work Phone: Radiology Comment on above: Cystic fibrosis with pulmonary manifestations (HCC) [E84.0] Start: 01-31-2025 End: 01-31-2025 ambulatory Sally Bucur METALWORKING INSTRUCTORINÉS Work Phone: Pulmonary Medicine Comment on above: Fever and coughing Start: 01-07-2025 End: 01-07-2025 ambulatory JEAN PIERRE KILGORE Facility:[facility] Start: 01-05-2025 End: 01-05-2025 Office outpatient visit 40 minutes Jean Pierre Kilgore MD Work Phone: Pulmonary Medicine Comment on above: Cystic fibrosis with pulmonary manifestations (HCC) (Primary Dx); 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) Start: 01-05-2025 End: 01-05-2025 ambulatory JEAN PIERRE KILGORE Pulmonary Medicine Comment on above: Spirometry Start: 01-05-2025 End: 01-05-2025 Patient encounter procedure Pulm Lab [facility] Work Phone: Pulmonary Medicine Start: 12-30-2024 End: 12-30-[address] Work Phone: Pulmonary Medicine Start: 12-30-2024 End: 12-30-2024 Chart abstracting Fernando Zhang RD Work Phone: Pulmonary Medicine Comment on above: Abstract Start: 11-16-2024 End: 11-16-2024 Telephone encounter Fernando Zhang RD Work Phone: Pulmonary Medicine Start: 10-14-2024 End: 10-14-2024 Telephone encounter Stephie Ramirez APRN.TUNNEL WORKER Work Phone: [facility] Comment on above: Results Start: 10-12-2024 End: 10-12-2024 Patient encounter procedure Stephie Ramirez APRN.TUNNEL WORKER Work Phone: [facility] Comment on above: Type 1 diabetes ximena itus with hyperglycemia (HCC) (Primary Dx); 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 Start: 10-11-2024 End: 10-11-2024 Telephone encounter Zaida Santos RN Work Phone: Pulmonary Medicine Start: 10-06-2024 End: 10-07-2024 ambulatory [facility] Pulmonary Medicine Comment on above: Spirometry Start: 10-06-2024 End: 10-06-2024 Patient encounter procedure Pulm Fct Lab 2 - A110 Work Phone: Pulmonary Medicine Comment on above: Cystic fibrosis (HCC ) (Primary Dx) Start: 10-04-2024 End: 10-04-2024 [address] abstracting Fernando Zhang RD Work Phone: Pulmonary Medicine Start: 09-28-2024 End: 09-28-2024 Telephone encounter Fernando Zhang RD Work Phone: Pulmonary Medicine Comment on above: Underwriting Manager - O ther Start: 09-27-2024 End: 09-27-2024 Orders Only Fernadno Zhang RD Work Phone: Pulmonary Medicine Comment on above: Cystic fibrosis (HCC ) (Primary Dx) Start: 09-23-2024 End: 09-27-2024 ambulatory Sally Bucur METALWORKING INSTRUCTOR.TUNNEL WORKER Work Phone: Pulmonary Medicine Comment on above: Nebulizers and BP me ds Start: 09-16-2024 End: 09-16-2024 Orders Only Varsha LIVE Pulmonary Medicine Comment on above: Cystic fibrosis with pulmonary manifestations (HCC) (Primary Dx); Hyperkalemia Start: 09-15-2024 End: 09-16-2024 Refill Nell Lozano [facility] Pulmonary Medicine Comment on above: Refill Request Patient Update (PICC Line Pulled at [place]) Start: 09-13-2024 End: 09-13-2024 ambulatory [facility] Facility:[facility] Start: 09-10-2024 End: 09-10-2024 Telephone encounter Zaida Santos RN Work Phone: Pulmonary Medicine Start: 09-10-2024 End: 09-10-2024 ambulatory [facility] Facility:[facility] Start: 09-09-2024 End: 09-09-2024 ambulatory Pulm [...] fibrosis (HCC) (HCC) Start: 09-08-2024 End: 09-08-2024 [facility] Facility:[facility] Start: 09-07-2024 End: 09-07-2024 [facility] Facility:[facility] Start: 09-03-2024 End: 09-03-2024 Chart abstracting Zaida Santos RN Work Phone: Pulmonary Medicine Start: 09-03-2024 End: 09-03-2024 Telephone encounter Sally Schneider APRN.CNP Work Phone: Pulmonary Medicine Comment on above: Received Outside Med ical Records Start: 09-03-2024 End: 09-03-2024 ambulatory [facility] Facility:[facility] Start: 09-02-2024 End: 09-02-2024 Telephone encounter Zaida Santos RN Work Phone: Pulmonary Medicine Start: 09-01-2024 ambulatory [facility] Facility[facility] Start: 09-01-2024 End: 09-01-2024 Telephone encounter Sally Schneider METALWORKING INSTRUCTOR.TUNNEL WORKER Work Phone: Pulmonary Medicine Start: 09-01-2024 End: 09-01-[address] [facility] Facility[facility] Start: 08-31-2024 End: 09-02-2024 ambulatory [facility] Facility:[facility] Start: 08-31-2024 End: 08-31-2024 Telephone encounter Sally Buccecily METALWORKING INSTRUCTOR.TUNNEL WORKER Work Phone: Pulmonary Medicine Comment on above: Critical Results Underwriting Manager - O ther Start: 08-31-2024 End: 08-31-2024 [facility] Facility:[facility] Start: 08-30-2024 End: 08-30-2024 ambulatory Sally Jennie METALWORKING INSTRUCTOR.TUNNEL WORKER Work Phone: Pulmonary Medicine Comment on above: Kayexalate Start: 08-27-2024 End: 08-27-2024 Orders Only Zaida Santos RN Work Phone: Pulmonary Medicine Comment on above: Hyperkalemia (Primar y Dx); Cystic fibrosis (HCC) Start: 08-25-2024 End: 08-25-2024 Telephone encounter Varsha LIVE Pulmonary Medicine Comment on above: Medication Problem ( Vanco timing) Underwriting Manager - O ther Start: 08-23-2024 End: 08-23-2024 ambulatory [facility] Facility:[facility] Start: 08-20-2024 End: 08-20-2024 Chart abstracting Zaida Santos RN Work Phone: Pulmonary Medicine Start: 08-19-2024 End: 08-19-2024 Telephone encounter Zaida Santos RN Work Phone: Pulmonary Medicine Comment on above: Follow Up Phone Call ; Underwriting Manager - Other Start: 08-19-2024 End: 08-19-2024 Patient encounter procedure Picc Nurse [facility] PICC TEAM Comment on above: Cystic fibrosis with pulmonary exacerbation (HCC); 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 Start: 08-19-2024 End: 08-19-2024 ambulatory JEAN PIERRE KILGORE Facility:[facility] Start: 08-18-2024 End: 08-18-2024 ambulatory JEAN PIERRE KILGORE Facility:[facility] Start: 08-18-2024 End: 08-18-2024 Office outpatient [...] End: 08-18-2024 Patient encounter procedure Pulm Lab [facility] Work Phone: Pulmonary Medicine Start: 08-12-2024 End: [...] 07-16-2024 End: 07-16-2024 ambulatory JEAN PIERRE KILGORE Facility:[facility] Start: 07-06-2024 End: 07-06-2024 Patient encounter procedure Stephie Ramirez APRN.TUNNEL WORKER Work Phone: [facility] Endocrinology Comment on above: Type 1 diabetes ximena itus with hyperglycemia (HCC) (Primary Dx) Start: 07-06-2024 End: 07-06-2024 ambulatory STEPHIE RAMIREZ Facility:[facility] Start: 07-05-2024 Chart abstracting Stephie Ramirez APRN.TUNNEL WORKER Work Phone: [facility] Start: 05-15-2024 Refill Tia Lino Work Phone: Gastroenterology Comment on above: Refill Request Start: 05-10-2024 Orders Only Fernando Zhang RD Work Phone: Pulmonary Medicine Comment on above: Cystic fibrosis (HCC ) (Primary Dx); 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); 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) Start: 05-07-2024 End: 05-07-2024 ambulatory MONO Shereen HOROCIO Facility:[facility] Start: 05-07-2024 End: 05-07-2024 Subsequent hospital visit by physician Mri Radio [facility] (I-Stat/1.5t) Work Phone: Radiology Comment [...] End: 03-09-2024 Patient encounter procedure Stephie Ramirez APRN.TUNNEL WORKER Work Phone: [facility] Endocr[facility]ology Comment on above: Type 1 diabetes ximena itus with hyperglycemia (HCC) (Primary Dx) Start: 03-09-2024 End: 03-09-2024 ambulatory STEPHIE RAMIREZ Facility:[facility] Start: 03-08-2024 ambulatory Zaida kumari RN Work Phone: Pulmonary Medicine Comment on above: Lab work tomorrow Start: 03-08-2024 E-mail encounter fro m caregiver Zaida Santos RN Work Phone: [facility] Start: 03-02-2024 End: 03-02-2024 ambulatory Lab/[place] [facility] Work Phone: Hematology/Oncology Comment on above: Cystic fibrosis with pulmonary exacerbation (HCC) (Primary Dx) Start: 03-01-2024 Telephone encounter Sally castillo METALWORKING INSTRUCTOR.TUNNEL WORKER Work Phone: Pulmonary Medicine Comment on above: Patient Question Start: 02-28-2024 Refill Stephie Ramirez APRN.TUNNEL WORKER Work Phone: [facility] Endocrinology Comment on above: Refill Request Start: [...] Start: 02-24-2024 End: 02-24-2024 Patient encounter procedure [facility] Work Phone: Start: 02-20-2024 Telephone encounter [...] 02-17-2024 ambulatory Jasmyn Bailon MD Work Phone: [facility] Work Phone: Comment on above: Outside Lab Results Start: 02-17-2024 Telephone encounter Randall MARTINS Comment on above: Follow Up Phone Call (RC f/u all clear/) Start: 02-17-2024 End: 02-17-2024 Patient encounter procedure [facility] Work Phone: Start: 02-16-2024 Orders Only Fernando Zhang RD Work Phone: Pulmonary Medicine Comment on above: Pancreatic insuffici ency due to cystic fibrosis (HCC) (HCC) (Primary Dx) [employer] Agency Start: 02-16-2024 End: 02-16-2024 Evaluation and management of inpatient Demetrice Storm DO Work Phone: Pulmonary Medicine Comment on above: Recheck Start: 02-15-2024 Telephone encounter Ivet atkinson MD Work Phone: Internal Medicine [facility] [place] Comment on above: Hospital F/U (/) Start: [...] vancomycin) Start: 02-03-2024 Telephone encounter Sally castillo APRN.TUNNEL WORKER Work Phone: Pulmonary Medicine Comment on above: Patient Update Start: 01-02-2024 Chart abstracting Fernando guevara RD Work Phone: Pulmonary Medicine Comment on above: Cystic fibrosis (HCC ) (Primary Dx); 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); 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); Dietary counseling and surveillance; Vitamin D deficiency Start: 12-28-2023 Refill Stephie Ramirez APRN.TUNNEL WORKER Work Phone: [facility] End[facility] Comment on above: Refill Request Start: 11-20-2023 Chart abstracting Stephie Ramirez APRN.TUNNEL WORKER Work Phone: [facility] Start: 11-13-2023 Orders Only Fernando Zhang RD Work Phone: Pulmonary Medicine Comment on above: Cystic fibrosis (HCC ) (Primary Dx) Start: 11-12-2023 Social Work Varsha LIVE Pulm onotis Medicine Start: 11-07-2023 Chart abstracting Zaida viera [...] Subsequent hospital visit by physician [facility] [place] [facility] Comment on [...] Start: 08-21-2023 Telephone encounter Sally Dima castillo METALWORKING INSTRUCTOR.TUNNEL WORKER Work Phone: Pulmonary Medicine Start: 08-20-2023 Telephone encounter Fredo Chapman Venancio simone DO Work Phone: Hematology/Oncology Comment on above: Results Start: 08-18-2023 End: 08-18-2023 ambulatory Fredo Moreno DO Work Phone: Hematology/Oncology Comment on above: 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 [place] [facility] Endocr[facility]ology Comment on above: Type 1 [...] Jean Pierre Kilgore MD Work Phone: [facility] Start: 08-06-2023 Telephone encounter Varsha MARIA Pulmonary Medicine Comment on above: Underwriting Manager - O ther (Medical records and DAVID.) Start: 08-02-2023 ambulatory She felix DO Work Phone: Pulmonary Medicine Comment on above: Potassium and kidney Start: 08-01-2023 Orders Only Nell ARMANDO Pul onary Medicine Comment on above: Osteoporosis without current pathological fracture, unspecified osteoporosis type (Primary Dx) Start: 07-30-2023 Refill Sally Bucur METALWORKING INSTRUCTOR.TUNNEL WORKER Work Phone: Pulmonary Medicine Comment on above: Refill Request Start: 07-24-2023 End: 07-24-2023 Evaluation and management of inpatient Pulm Fct Lab J-2 Pulmonary Medicine Comment on above: Cystic fibrosis (HCC ) (Primary Dx) Start: 2023 ambulatory Sally Bucur METALWORKING INSTRUCTOR.TUNNEL WORKER Work Phone: Pulmonary Medicine Comment on above: [...] Fct Lab 1 - A110 Work Phone: [facility] Comment on above: Cystic fibrosis [...] Work Phone: Pulmonary Medicine Comment on above: [facility] Start: 06-04-2023 End: 06-04-2023 Office outpatient visit 25 minutes Jean Pierre Kilgore MD Work Phone: Pulmonary Medicine Comment on above: Cystic fibrosis with pulmonary manifestations (HCC) (Primary Dx) Start: 06-04-2023 End: 06-04-2023 ambulatory [place] [place] Work Phone: Pulmonary Medicine Comment on above: Spirometry Start: 06-04-2023 End: 06-04-2023 Patient encounter procedure Pulm Lab [place] Work Phone: [place] [facility] Start: 06-02-2023 End: 06-02-2023 Subsequent hospital visit by physician Xr [facility] Maxwell Zimmer Work Phone: Radiology Comment on above: Cystic fibrosis (HCC ) [E84.9] Start: 06-02-2023 Chart abstracting Sally jones APRN.TUNNEL WORKER Work Phone: Pulmonary Medicine Start: 06-02-2023 Telephone encounter Sally castillo APRN.TUNNEL WORKER Work Phone: Pulmonary Medicine Comment on above: Results Start: 05-28-2023 Telephone encounter She ferreira DO Work Phone: Pulmonary Medicine Comment on above: Appointment Start: 05-19-2023 Telephone encounter Fernando funk RD Work Phone: Pulmonary Medicine Comment on above: Returning Patient's Call Cystic fibrosis (HCC ) (Primary Dx); 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) Start: 04-07-2023 End: 04-07-2023 Patient encounter procedure Stephie Ramierz APRN.TUNNEL WORKER Work Phone: [facility] General Endocrinology Comment on above: Type 1 diabetes ximena itus with hyperglycemia (HCC) (Primary Dx) Start: 04-07-2023 Chart abstracting Stephie Ramirez APRN.TUNNEL WORKER Work Phone: [facility] Start: 04-01-2023 End: 04-01-2023 ambulatory Lab/[place] [facility] Work Phone: Hematology/Oncology Comment on [...] End: 03-26-2023 Patient encounter procedure Pulm Lab [place] [employer] Work Phone: [facility] [employer] [facility] Start: 03-25-2023 ambulatory She Beth er DO Work Phone: Pulmonary Medicine Comment on above: Labs and respiratory viral panel Start: 03-25-2023 E-mail encounter santo rasmussen caregiver She Pete DO Work Phone: [facility] Start: 03-20-2023 ambulatory Lou Westbrook RN Infec tious Disease Comment on above: Extend [employer] (03/28) Start: 03-20-2023 Telephone encounter She ferreira DO Work Phone: Pulmonary Medicine Comment on above: Medication Problem Patient Update Start: 03-19-2023 End: 03-19-2023 Patient encounter procedure Pulm Lab [place] [employer] Work Phone: Pulmonary Medicine Comment on above: [...] m caregiver She Pete DO Work Phone: [facility] Start: 03-17-2023 ambulatory She felix DO Work Phone: Pulmonary Medicine Comment on above: Labs Start: 03-17-2023 Chart abstracting She sen DO Work Phone: Pulmonary Medicine Comment on above: CF chart review Start: 03-17-2023 E-mail encounter fro grady caregiver She Pete DO Work Phone: [facility] Start: 03-12-2023 ambulatory Anabel Michel MD Work Phone: Infectious Disease Comment on above: [employer] Start: 03-10-2023 Orders Only Sally Schneider METALWORKING INSTRUCTOR.TUNNEL WORKER Work Phone: Pulmonary Medicine Comment on above: [...] End: 03-05-2023 Patient encounter procedure Pulm Lab [facility] Work Phone: [facility] Start: 03-03-2023 Orders Only Nell ARMANDO Pulm onary Medicine Comment on above: Cystic fibrosis with pulmonary manifestations (HCC) (Primary Dx) Start: 02-27-2023 ambulatory Jean Pierre Kilgore MD Work Phone: [facility] Start: 02-27-2023 Follow-up encounter Jean Pierre Kilgore MD Work Phone: Pulmonary Medicine Comment on above: Visit follow up Start: 02-26-2023 ambulatory Stephie Ramirez APRN.TUNNEL WORKER Work Phone: [facility] Endocrinology Comment on above: Dexcom Start: 02-26-2023 [...] q12h) Start: 12-20-2022 Chart abstracting Stephie Ramirez APRN.TUNNEL WORKER Work Phone: [facility] Endocrinology Start: 12-20-2022 End: 12-20-2022 Patient encounter procedure Stephie Ramirez APRN.TUNNEL WORKER Work Phone: [facility] Comment on above: Type 1 diabetes ximena itus with hyperglycemia (HCC) (Primary Dx) Start: 12-18-2022 Telephone encounter She ferreira DO Work Phone: Pulmonary Medicine Comment on above: Benefits Authorizati on Start: 12-06-2022 Telephone encounter Karlene jaramillo DO Work Phone: Kidney Medicine Comment on above: Appointment Start: 12-05-2022 Patient encounter procedure [facility] Start: 12-04-2022 End: 12-04-2022 ambulatory [facility] [place] Work Phone: Pulmonary Medicine Comment on above: Spirometry Start: 12-04-2022 End: 12-04-2022 Patient encounter procedure Pulm Lab [place]ohana Stuart Work Phone: [facility] Comment on above: Need for [...] D x) Start: 11-26-2022 Patient encounter procedure 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 Comment on above: Insurance Authorizat ion (for 0.9% Sodium Chloride 1000 ml//Infuse 1000 ml daily for 4 days/) Start: 11-18-2022 Chart abstracting Miguelina Murray RN [facility] Medicine Comment on above: Cystic fibrosis with pulmonary exacerbation (HCC) (Primary Dx) Start: 11-18-2022 Telephone encounter She ferreira DO Work Phone: Pulmonary Medicine Comment on above: Outside Lab Results Start: 11-18-2022 End: 11-18-[address] [facility] Work Phone: Start: 11-18-2022 End: 11-18-2022 Patient encounter procedure [facility] Start: 11-15-2022 End: 11-15-[address] [facility] Work Phone: Start: 11-15-2022 End: 11-15-2022 Patient encounter procedure [facility] Start: 11-12-2022 ambulatory Luiza delatorre MD Work Phone: Infectious Disease Comment on above: [employer] Agency Start: 11-12-2022 Telephone encounter Luiza Rodriges MD Work Phone: [facility] Comment on above: Insurance Authorizat ion (for Vancomycin 750mg IV every 12 hours ,Meropenem 1.5gm IV every 8 hours ,Benadryl 50mg K22Rirgm) Start: 11-11-2022 Orders Only Sally Schneider METALWORKING INSTRUCTOR.TUNNEL WORKER Work Phone: Pediatric Pulmonary Comment on above: Cystic fibrosis (HCC ) (Primary Dx) Start: 11-08-2022 ambulatory Luiza delatorre MD Work Phone: [facility] Comment on above: CoPat Start Start: 11-05-2022 Chart abstracting Sally jones APRN.TUNNEL WORKER Work Phone: Pulmonary Medicine Start: 11-05-2022 End: 11-05-2022 ambulatory Pulm A110 Work Phone: Pulmonary Medicine Comment on above: Spirometry Start: 11-05-2022 End: 11-05-2022 Patient encounter procedure Pulm Fct Lab 2 - A110 Work Phone: [facility] Start: 11-04-2022 Telephone encounter She [...] rasmussen caregiver She Pete DO Work Phone: [facility] Start: 09-11-2022 E-mail encounter santo rasmussen caregiver She Pete DO Work Phone: [place] [facility] Start: 09-11-2022 Follow-up encounter She ferreira DO Work Phone: Family Medicine [facility] Comment on above: CF follow-up visit Start: 09-11-2022 End: 09-11-2022 ambulatory [place] Work Phone: Pulmonary Medicine Comment on above: Spirometry Start: 09-11-2022 End: 09-11-2022 Patient encounter procedure Pulm Lab [place] Work Phone: 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 [place] [facility] Endocrinology Comment on above: Overdue follow up Start: 08-28-2022 Telephone encounter Sally castillo APRN.TUNNEL WORKER Work Phone: Family Medicine [facility] Comment on above: Medication Problem Start: 08-26-2022 ambulatory She felix DO Work Phone: Pulmonary Medicine Comment on above: Covid 19 Cystic fibrosis with pulmonary manifestations (HCC) (Primary Dx) Start: 08-26-2022 E-mail encounter santo m caregiver Sally Schneider APRN.TUNNEL WORKER Work Phone: [facility] Start: 08-09-2022 End: 08-09-2022 ambulatory Jordyn Johnson MD Work Phone: Pediatric Pulmonary Comment on above: Spirometry [employer] Stop Start: 08-09-2022 End: 08-09-2022 Patient encounter procedure Peds Pulm [facility] [facility] Work Phone: [facility] Comment on above: Cystic fibrosis [...] Start: 08-06-2022 End: 08-06-2022 Patient encounter procedure [facility] Start: 08-01-2022 ambulatory Alex Clayton RN [...] Start: 05-12-2022 End: 05-12-2022 ambulatory UNKNOWN PROVIDER Facility:[facility] Start: 05-12-2022 End: 05-14-2022 [facility] CURTIS CISNEROS MD [facility] Start: 05-12-2022 End: 05-14-2022 Evaluation and management of inpatient MD NO PRIMARY CARE [facility] Start: 05-12-2022 End: 05-14-2022 Evaluation and management of inpatient Sabina Larios MD Work Phone: [facility] Comment on above: Intractable nausea a nd [...] Start: 11-05-2018 Patient encounter STEPHIE RAMIREZ Facility:[facility] Start: 09-10-2018 End: 09-10-2018 Patient encounter STEPHIE RAMIREZ Facility:[facility] Start: 07-02-2018 Patient encounter STEPHIEKAROLINA RAMIREZ Facility:[facility] Start: 06-18-2018 End: 06-18-2018 Patient encounter STEPHIE RAMIREZ Facility:[facility] Start: 05-29-2018 End: 05-29-2018 Patient encounter STEPHIE RAMIREZ Facility:[facility] Start: 02-26-2018 Patient encounter STEPHIE RAMIREZ Facility:[facility] Procedures Date Procedure Procedure Detail Performing Clinician Start: 02-09-2025 Spmtry w/vc expiratory cristina w/wo mxml vol vntj Sally Schneider METALWORKING INSTRUCTOR.TUNNEL WORKER Work Phone: Start: 02-07-2025 Radiologic exam chest 2 views Farrukh Gomes MD Work Phone: Start: 02-07-2025 STREP A MOLECULAR (POC) Peggy Radha mei APRN.TUNNEL WORKER Work Phone: Start: 01-05-2025 Spmtry w/vc expiratory cristina w/wo mxml vol vntj Jean Pierre Kilgore MD Work Phone: Start: 10-12-2024 Hemoglobin A1c/Hemoglobin.total in Blood Stephie Ramirez APRN.TUNNEL WORKER Work Phone: Start: 10-06-2024 Spmtry w/vc expiratory cristina w/wo mxml vol vntj Sally Schneider METALWORKING INSTRUCTOR.TUNNEL WORKER Work Phone: Start: 09-09-2024 Spmtry w/vc expiratory cristina w/wo mxml vol vntj Zaida Santos RN Work Phone: Start: 08-19-2024 IR VASCULAR ACCESS TEAM PICC INSERTION RADIO Jean Pierre Kilgore MD Work Phone: Start: 08-18-2024 Spmtry w/vc expiratory cristina w/wo mxml vol vntj Jean Pierre Kilgore MD Work Phone: Start: 07-06-2024 Hemoglobin A1c/Hemoglobin.total in Blood Stephie Ramirez APRN.TUNNEL WORKER Work Phone: Start: 05-07-2024 Mri abdomen w/o & w/contrast material Crystal Vallejo MD Work Phone: Start: 05-05-2024 Cul bact xcpt urine blood/stool aerobic isol Jean Pierre Kilgore MD Work Phone: Start: 05-05-2024 Spmtry w/vc expiratory cristina w/wo mxml vol vntj Nell Lozano [facility] Start: 03-09-2024 Hemoglobin A1c/Hemoglobin.total in Blood Stephie Ramirez APRN.TUNNEL WORKER Work Phone: Start: 02-24-2024 BILIRUBIN TOTAL BLD [...] BY RAPID PCR (WITH COVID) Sally Schneider APRN.TUNNEL WORKER Work Phone: Start: 06-04-2023 Cul bact xcpt urine blood/stool aerobic isol Jean Pierre Kilgore MD Work Phone: Start: 06-04-2023 Spmtry w/vc expiratory cristina w/wo mxml vol vntj She Pete DO Work Phone: Start: 06-02-2023 Radiologic exam abdomen 1 view Sally Schneider METALWORKING INSTRUCTOR.TUNNEL WORKER Work Phone: Start: 03-19-2023 RESPIRATORY PANEL BY RAPID PCR (WITH COVID) She Pete DO Work Phone: Start: 03-05-2023 Spmtry w/vc expiratory cristina w/wo mxml vol vntj Nell Lozano [facility] Start: 12-04-2022 INFLUENZA VACCINE QUADRIVALENT 6 MO [...] cristina w/wo mxml vol vntj Sally Bucur METALWORKING INSTRUCTOR.TUNNEL WORKER Work Phone: Start: 11-05-2022 Spmtry w/vc expiratory cristina w/wo mxml vol vntj Sally Bucur METALWORKING INSTRUCTOR.TUNNEL WORKER Work Phone: Start: 09-11-2022 Spmtry w/vc expiratory cristina w/wo mxml vol vntj She Tamara DO Work Phone: Start: 08-09-2022 Spmtry w/vc expiratory cristina w/wo mxml vol vntj Sally Bucur METALWORKING INSTRUCTOR.TUNNEL WORKER Work Phone: Start: 08-06-2022 CBC + DIFF [...] only Karlene Chacon DO Work Phone (unformatted): [phone] Start: 05-13-2022 Glucose blood reagent strip Curtis [...] Blood Karlene Chacon DO Work Phone (unformatted): [phone] Start: 05-12-2022 End: 05-12-2022 Comprehensive metabolic panel Karleen Chacon DO Work Phone (unformatted): [phone] Start: 05-12-2022 Manual Differential panel - Blood Karlene Chacon DO Work Phone (unformatted): [phone] Start: 05-12-2022 Iadna respiratry probe & rev trnscr 11-24 target Karlene Chacon DO Work Phone (unformatted): [phone] Start: 05-12-2022 Radiologic exam abdomen 2 views Karlene Chacon DO Work Phone (unformatted): [phone] Plan of Treatment Date Care Activity Detail Author Start: 2058 PNEUMOCOCCAL (3 - PPSV23 if available, else PCV20) PNEUMOCOCCAL (3 - PPSV23 if available, else PCV20) [facility] Start: 2058 PNEUMOCOCCAL (3 - PPSV23 or PCV20) PNEUMOCOCCAL (3 - PPSV23 or PCV20) [facility] Start: 2058 Pneumococcal vaccination [facility] Start: 2043 Pneumococcal vaccination Pneumococcal Vaccine (3 of 3 - PCV20 or PCV21) [facility] Start: 05-12-2026 Chest X-Ray CF Chest X-Ray CF [facility] Start: 02-14-2026 Diabetic foot examination Diabetic Foot Exam [facility] Start: 02-09-2026 BP Controlled (<130/80) BP Controlled (<130/80) [facility] Start: 10-08-2025 Hemoglobin A1c measurement HbA1C [facility] Start: 08-23-2025 End: 08-23-2025 Patient encounter procedure 08/23/2025 2:00 PM EDT Office Visit [facility] General Endocrinology [address] [place] [address] Stephie Ramirez, METALWORKING INSTRUCTOR.TUNNEL WORKER [address] [place], [place] [id number] dm [facility]ocr[facility]ology Comment on above: dm Start: 08-01-2025 Influenza vaccination Influenza Vaccine (Season Ended) [facility] Start: 07-07-2025 Hemoglobin A1c measurement HbA1C [facility] Start: 05-09-2025 End: 05-09-2025 Patient encounter procedure 05/09/2025 1:30 PM EDT Office Visit [facility] General Endocrinology [address] [place] [address] Stephie Ramirez, METALWORKING INSTRUCTOR.TUNNEL WORKER [address] [place] [address] [facility] [place] [facility] Comment on above: dm Start: 05-04-2025 End: 05-04-2025 ambulatory 05/04/2025 10:30 AM EDT Procedure [facility] [address] [place] [address] Cystic fibrosis (HCC) [E84.9] [facility] Comment on above: Cystic fibrosis (HCC) [E84.9] Start: 04-14-2025 End: 07-14-2025 Comprehensive metabolic 2000 panel - Serum or Plasma COMPREHENSIVE METABOLIC PANEL Lab Routine Cystic fibrosis with pulmonary manifestations (HCC) Expected: 04/14/2025 (Approximate), Expires: 07/14/2025 [facility] Work Phone: Comment on above: Expected: 04/14/2025 (Approximate), Expi res: 07/14/2025 Start: 04-11-2025 Hemoglobin A1c measurement HbA1C [facility] Start: 04-06-2025 End: 07-06-2025 25-hydroxyvitamin D3 [Mass/volume] in Serum or Plasma VITAMIN D 25 HYDROXY Lab Routine Cystic fibrosis (HCC) Expected: 04/06/2025 (Approximate), Expires: 07/06/[address] [facility] Comment on above: Expected: 04/06/2025 (Approximate), Expi res: 07/06/2025 Start: 04-06-2025 End: 07-06-2025 Alpha tocopherol [Mass/volume] in Serum or Plasma VITAMIN E/TOCOPHEROL Lab Routine Cystic fibrosis (HCC) Expected: 04/06/2025 (Approximate), Expires: 07/06/[address] [facility] Comment on above: Expected: 04/06/2025 (Approximate), Expi res: 07/06/2025 Start: 04-06-2025 End: 07-06-2025 C reactive protein [Mass/volume] in Serum or Plasma C-REACTIVE PROTEIN Lab Routine Cystic fibrosis (HCC) Expected: 04/06/2025 (Approximate), Expires: 07/06/[address] [facility] Comment on above: Expected: 04/06/2025 (Approximate), Expi res: 07/06/2025 Start: 04-06-2025 End: 07-06-2025 CBC W Auto Differential panel - Blood COMPLETE BLOOD COUNT AND DIFFERENTIAL Lab Routine Cystic fibrosis (HCC) Expected: 04/06/2025 (Approximate), Expires: 07/06/2025 [facility] Work Phone: Comment on above: Expected: 04/06/2025 (Approximate), Expi res: 07/06/2025 Start: 04-06-2025 End: 07-06-2025 Comprehensive metabolic 2000 panel - Serum or Plasma COMPREHENSIVE METABOLIC PANEL Lab Routine Cystic fibrosis (HCC) Expected: 04/06/2025 (Approximate), Expires: 07/06/[address] [facility] Comment on above: Expected: 04/06/2025 (Approximate), Expi res: 07/06/2025 Start: 04-06-2025 End: 07-06-2025 Gamma glutamyl transferase [Enzymatic activity/volume] in Serum or Plasma GGT Lab Routine Cystic fibrosis ([facility]) Expected: 04/06/2025 (Approximate), Expires: 07/06/[address] [facility] Comment on above: Expected: 04/06/2025 (Approximate), Expi res: 07/06/2025 Start: 04-06-2025 End: 07-06-2025 Hemoglobin A1c in Blood HEMOGLOBIN A1C Lab Routine Cystic fibrosis ([facility]) Expected: 04/06/2025 (Approximate), Expires: 07/06/[address] [facility] Comment on above: Expected: 04/06/2025 (Approximate), Expi res: 07/06/2025 Start: 04-06-2025 End: 07-06-2025 IgE [Units/volume] in Serum or Plasma IMMUNOGLOBULIN E Lab Routine Cystic fibrosis ([facility]) Expected: 04/06/2025 (Approximate), Expires: 07/06/[address] [facility] Comment on above: Expected: 04/06/2025 (Approximate), Expi res: 07/06/2025 Start: 04-06-2025 End: 07-06-2025 PT panel - Platelet poor plasma by Coagulation assay PROTHROMBIN TIME Lab Routine Cystic fibrosis ([facility]) Expected: 04/06/2025 (Approximate), Expires: 07/06/[address] [facility] Comment on above: Expected: 04/06/2025 (Approximate), Expi res: 07/06/2025 Start: 04-06-2025 End: 07-06-2025 Retinol [Mass/volume] in Serum or Plasma VITAMIN A/RETINOL Lab Routine Cystic fibrosis ([facility]) Expected: 04/06/2025 (Approximate), Expires: 07/06/[address] [facility] Comment on above: Expected: 04/06/2025 (Approximate), Expi res: 07/06/2025 Start: 04-06-2025 End: 07-06-2025 Testosterone [Mass/volume] in Serum or Plasma TESTOSTERONE, TOTAL BY IMMUNOASSAY (ADULT MALES, OR INDIVIDUALS ON TESTOSTERONE THERAPY) Lab Routine Cystic fibrosis (HCC) Expected: 04/06/2025 (Approximate), Expires: 07/06/[address] [facility] Comment on above: Expected: 04/06/2025 (Approximate), Expi res: 07/06/2025 Start: 04-06-2025 End: 04-06-2025 Patient encounter procedure Pulmonary Medicine Comment on above: 3 mo f/u Start: 04-06-2025 End: 04-06-2025 ambulatory 04/06/2025 10:45 AM EDT Procedure Pulmonary Medicine [address] [place] [address] CF Laptop Sj Pulmonary Medicine Comment on above: CF Laptop [place] Start: 03-17-2025 Hepatitis B surface antibody level LDL Cholesterol [facility] Start: 03-09-2025 BP Controlled (<130/80) BP Controlled (<130/80) [facility] Start: 02-14-2025 End: 02-14-2025 Patient encounter procedure 02/14/2025 2:30 PM EDT [facility] [address] [place], [place] [id number] Stephie Ramirez, METALWORKING INSTRUCTOR.TUNNEL WORKER [address] [place], [place] [phone] dm [facility] [place] [facility] Comment on above: dm Start: 02-14-2025 End: 05-16-2025 Comprehensive metabolic 2000 panel - Serum or Plasma COMPREHENSIVE METABOLIC PANEL Lab Routine Cystic fibrosis (HCC) Expected: 02/14/2025, Expires: 05/16/2025 [facility] Work Phone: Comment on above: Expected: 02/14/2025, Expires: Start: 02-09-2025 End: 05-11-2025 Comprehensive metabolic 2000 panel - Serum or Plasma [facility] Comment on above: Expected: 02/09/2025, Expires: Start: 02-09-2025 End: 05-11-2025 Respiratory pathogens DNA and RNA panel - Nasopharynx by PABLO with probe detection EXPANDED RESPIRATORY PATHOGEN PANEL BY PCR, ROUTINE Lab Routine Cystic fibrosis (HCC) Fever, unspecified fever cause Expected: 02/09/2025, Expires: 05/11/[address] [facility] Comment on above: Expected: 02/09/2025, Expires: Start: 02-09-2025 End: 02-09-2025 ambulatory 02/09/2025 10:30 AM EDT Procedure Pulmonary Medicine [address] [place] [address] Est CF Pulmonary Medicine Comment on above: Est CF Start: 02-09-2025 End: 02-09-2025 Patient encounter procedure 02/09/2025 10:30 AM EDT Office Visit Pulmonary Medicine [address] [place] [address] Sally Schneider APRN.TUNNEL WORKER [address] [facility] [place] [address] Est CF Pulmonary Medicine Comment on above: Est CF Start: 02-07-2025 End: 05-09-2025 Fungus identified in Unspecified specimen by Culture [facility] Work Phone: Comment on above: Expected: 02/07/2025, Expires: Start: 02-02-2025 Diabetic foot examination Diabetic Foot Exam [facility] Start: 01-06-2025 Hemoglobin A1c measurement HbA1C 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 Comment on above: Expected: 01/05/2025, Expires: Start: 01-05-2025 End: 01-05-2025 Patient encounter procedure 01/05/2025 1:45 PM EST Office Visit Pulmonary Medicine [address] [place], [place] [id number] Jean Pierre Kilgore MD [address] [facility] [address] [place] [address] EST CF w/Sheers + pft in 3 months-[place] [facility] 08-18-24 Pulmonary Medicine Comment on above: EST CF w/Sheers + pft in 3 months-[place] [facility] 08-18-24 Start: 01-05-2025 End: 01-05-2025 ambulatory Pulmonary Medicine Comment on above: Cystic fibrosis with pulmonary manifesta tions (HCC) [E84.0] BC//Cystic fibrosis with pulmonary manifestations (HCC) [E84.0] Start: 12-08-2024 End: 12-08-2024 Patient encounter procedure 12/08/2024 1:00 PM EST Appointment [facility] [address] [place] [address] Cystic fibrosis (HCC) [E84.9] [facility] Comment on above: Cystic fibrosis (HCC) [E84.9] Start: 11-10-2024 End: 11-10-2024 Patient encounter procedure Pulmonary Medicine Comment on above: Cystic fibrosis with pulmonary manifesta tions (HCC) [E84.0] EST CF w/Sheers + pf t in 3 months-[place] [facility] 08-18-24 Start: 10-12-2024 End: 10-12-2024 Patient encounter procedure 10/12/2024 2:00 PM EST Office Visit [facility] Endocrinology [address] [place], [place] [phone] Stephie Ramirez, METALWORKING INSTRUCTOR.TUNNEL WORKER [address] [place], [place] [phone] type 1 diabetes [facility] Endocr[facility] Comment on above: type 1 diabetes Start: 10-06-2024 End: 01-05-2025 Comprehensive metabolic 2000 panel - Serum or Plasma [facility] Work Phone: Comment on above: Expected: 10/06/2024, Expires: Start: 10-06-2024 End: 10-06-2024 Patient encounter procedure 10/06/2024 1:00 PM EST Office Visit Pulmonary Medicine [address] [place] [id number] Sally Schneider APRN.TUNNEL WORKER [address] [place] [address] Est-CF Pulmonary Medicine Comment on above: Est-CF Start: 10-06-2024 End: 10-06-2024 ambulatory 10/06/2024 12:30 PM EST Procedure Pulmonary Medicine [address] [place] [id number] Cystic fibrosis Pulmonary Medicine Comment on above: Cystic fibrosis Start: 09-24-2024 BP Controlled (<130/80) BP Controlled (<130/80) [facility] Start: 09-16-2024 End: 12-16-2024 Basic metabolic 2000 panel - Serum or Plasma [facility] Comment on above: Expected: 09/16/2024, Expires: Start: 09-09-2024 End: 09-09-2024 Patient encounter procedure 09/09/2024 1:00 PM EDT Office Visit Pulmonary Medicine [address] [place] [address] Sally Schneider APRN.TUNNEL WORKER [address] [place] [address] Est CF w/Bucur + Spirometry Baseline on Sep 09 at 1 PM ADD ON-CS stf msg 09-02-24 Pulmonary Medicine Comment on above: Est CF w/Bucur + Spirometry Baseline on Sep 09 at 1 PM ADD ON-CS stf msg 09-02-24 Start: 09-09-2024 End: 09-09-2024 ambulatory 09/09/2024 12:30 PM EDT Procedure Pulmonary Medicine [address] [address] 4, Pulm Fct Lab Main [address] [place] [address] Cystic fibrosis (HCC) [E84.9] Pulmonary Medicine Comment on above: Cystic fibrosis (HCC) [E84.9] Start: 09-08-2024 Hemoglobin A1c measurement HbA1C [facility] Start: 09-02-2024 End: 09-02-2024 Patient encounter procedure [facility] Comment on above: Cystic fibrosis (HCC) [E84.9] COMP 2022 L / Spine Frax: Sec osteo Prior VFA Start: 09-01-2024 End: 09-01-2024 Patient encounter procedure Pulmonary Medicine Comment on above: EST CF w/Sheers + pft on 09/01 at 1pm-[facility] ms 08-18-24 Start: 09-01-2024 End: 09-01-2024 ambulatory 09/01/2024 12:15 PM EDT Procedure Pulmonary Medicine [address] [address] 8, Pulm Fct Lab Main [address] [place] [address] Cystic fibrosis (HCC) [E84.9] Pulmonary Medicine Comment on above: Cystic fibrosis (HCC) [E84.9] Start: 08-27-2024 End: 09-03-2024 Basic metabolic 2000 panel - Serum or Plasma BASIC METABOLIC PANEL Lab Routine Hyperkalemia Cystic fibrosis (HCC) Expected: 08/27/2024, Expires: 09/03/2024 [facility] Work Phone: Comment on above: Expected: 08/27/2024, Expires: Start: 08-19-2024 End: 08-19-2024 Patient encounter procedure 08/19/2024 8:00 AM EDT Office Visit [facility] PICC TEAM [address] [place] [phone] CF Copat - schedule at [facility] PICC TEAM Comment on above: CF Copat - schedule at [facility] Start: 08-18-2024 End: 08-18-2024 Patient encounter procedure 08/18/2024 1:45 PM EDT Office Visit Pulmonary Medicine [address] [place], [place] [id number] Jean Pierre Kilgore MD [facility] [address] [place], [place] [id number] CF Pulmonary Medicine Comment on above: CF Start: 08-18-2024 End: 08-18-2024 ambulatory 08/18/2024 1:15 PM EDT Procedure Pulmonary Medicine [address] [place] [address] CF Pulmonary Medicine Comment on above: CF Start: 08-11-2024 3 comp foot exam completed DIABETIC FOOT EXAM [facility] Start: 08-11-2024 Diabetic foot examination Diabetic Foot Exam [facility] Start: 08-05-2024 Hemoglobin A1c measurement HbA1C [facility] Start: 08-01-2024 Covid-19 Vaccine ( season) Covid-19 Vaccine ( season) [facility] Start: 08-01-2024 Covid-19 Vaccine ( season) Covid-19 Vaccine () [facility] Start: 08-01-[address] [facility] Start: 07-27-2024 Hepatitis B screening URINE ALBUMIN:CREATININE RATIO [facility] Start: 07-19-2024 End: 07-19-2024 ambulatory 07/19/2024 2:30 PM EDT [facility]enterology [address] [address] Tia Lindo MD [address] [place] [address] Liver Disease Gastroenterology Comment on above: Liver Disease Start: 07-19-2024 End: 10-18-2024 [id number] [Mass/volume] in Serum or Plasma ALPHA FETOPROTEIN Lab Routine Other cirrhosis of liver (HCC) Expected: 07/19/2024, Expires: 10/18/[address] [facility] Comment on above: Expected: 07/19/2024, Expires: Start: 07-19-2024 End: 10-18-2024 Cancer Ag 19-9 [Units/volume] in Serum or Plasma CA 19-9 Lab Routine Other cirrhosis of liver (HCC) Expected: 07/19/2024, Expires: 10/18/[address] [facility] Comment on above: Expected: 07/19/2024, Expires: Start: 07-19-2024 End: 10-18-2024 Carcinoembryonic Ag [Mass/volume] in Serum or Plasma CARCINOEMBRYONIC ANTIGEN Lab Routine Other cirrhosis of liver (HCC) Expected: 07/19/2024, Expires: 10/18/[address] [facility] Comment on above: Expected: 07/19/2024, Expires: Start: 07-19-2024 End: 10-18-2024 CBC panel - Blood by Automated count COMPLETE BLOOD COUNT Lab Routine Other cirrhosis of liver (HCC) Expected: 07/19/2024, Expires: 10/18/2024 [facility] Work Phone: Comment on above: Expected: 07/19/2024, Expires: Start: 07-19-2024 End: 10-18-2024 Comprehensive metabolic 2000 panel - Serum or Plasma COMPREHENSIVE METABOLIC PANEL Lab Routine Other cirrhosis of liver (HCC) Expected: 07/19/2024, Expires: 10/18/[address] [facility] Comment on above: Expected: 07/19/2024, Expires: Start: 07-19-2024 End: 10-18-2024 PT panel - Platelet poor plasma by Coagulation assay PROTHROMBIN TIME Lab Routine Other cirrhosis of liver (HCC) Expected: 07/19/2024, Expires: 10/18/[address] 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 [place] [facility] Comment on above: type 1 diabetes Start: 07-02-2024 BP CONTROLLED (<130/80) BP CONTROLLED (<130/80) [facility] Start: 06-04-2024 BP CONTROLLED (<130/80) BP CONTROLLED (<130/80) [facility] Start: 05-21-2024 Hemoglobin A1c measurement HbA1C 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 Comment on above: Expected: 05/19/2024 (Approximate), Expi res: 08/18/2024 Start: 05-07-2024 End: 05-07-2024 Patient encounter procedure 05/07/2024 1:40 PM EDT Appointment Radiology [address] [place] [address] Abnormal results of liver function studies [R94.5] Radiology Comment on above: Abnormal results of liver function studi es [R94.5] Start: 05-05-2024 End: 05-05-2024 Patient encounter procedure Pulmonary Medicine Comment on above: Cystic fibrosis with pulmonary manifesta tions (HCC) [E84.0] RT EDUCATION Start: 05-05-2024 End: 05-05-2024 ambulatory 05/05/2024 2:15 PM EDT Procedure Pulmonary Medicine [address] [place] [address] Cystic fibrosis with pulmonary manifestations (HCC) [E84.0] Pulmonary Medicine Comment on above: Cystic fibrosis with pulmonary manifesta tions (HCC) [E84.0] Start: 05-05-2024 End: 08-04-2024 Basic metabolic 2000 panel - Serum or Plasma BASIC METABOLIC PANEL Lab Routine Cystic fibrosis with pulmonary manifestations (HCC) Expected: 05/05/2024, Expires: 08/04/[address] [facility] Comment on above: Expected: 05/05/2024, Expires: Start: 05-05-2024 End: 08-04-2024 Hepatic function 2000 panel - Serum or Plasma HEPATIC FUNCTION PNL Lab Routine Cystic fibrosis with pulmonary manifestations (HCC) 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) Expected: 05/05/2024, Expires: 08/04/[address] 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 Start: 02-27-2024 BP CONTROLLED (<130/80) BP CONTROLLED (<130/80) [facility] in Start: 02-25-2024 End: 11-30-2024 25-hydroxyvitamin D3 [Mass/volume] in Serum or Plasma VITAMIN D 25 HYDROXY Lab Routine Cystic fibrosis (HCC) 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 fibrosis with pulmonary manifestations (HCC) Vitamin D deficiency Expected: 02/25/2024 (Approximate), Expires: 11/30/2024 [facility] Work Phone: Comment on above: Expected: 02/25/2024 (Approximate), Expi res: 11/30/2024 Start: 02-25-2024 End: 11-30-2024 Alpha tocopherol [Mass/volume] in Serum or Plasma VITAMIN E/TOCOPHEROL Lab Routine Cystic fibrosis (HCC) 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 fibrosis with pulmonary manifestations (HCC) Vitamin D deficiency Expected: 02/25/2024 (Approximate), Expires: 11/30/2024 [facility] Work Phone: Comment on above: Expected: 02/25/2024 (Approximate), Expi res: 11/30/2024 Start: 02-25-2024 End: 11-30-2024 C reactive protein [Mass/volume] in Serum or Plasma C-REACTIVE PROTEIN (CRP) Lab Routine Cystic fibrosis (HCC) 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 fibrosis with pulmonary manifestations (HCC) Vitamin D deficiency Expected: 02/25/2024 (Approximate), Expires: 11/30/2024 [facility] Work Phone: Comment on above: Expected: 02/25/2024 (Approximate), Expi res: 11/30/2024 Start: 02-25-2024 End: 11-30-2024 CBC W Auto Differential panel - Blood CBC + DIFF Lab Routine Cystic fibrosis (HCC) 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 fibrosis with pulmonary manifestations (HCC) Vitamin D deficiency Expected: 02/25/2024 (Approximate), Expires: 11/30/2024 [facility] Work Phone: Comment on above: Expected: 02/25/2024 (Approximate), Expi res: 11/30/2024 Start: 02-25-2024 End: 11-30-2024 Comprehensive metabolic 2000 panel - Serum or Plasma COMP METABOLIC PANEL Lab Routine Cystic fibrosis (HCC) 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 fibrosis with pulmonary manifestations (HCC) Vitamin D deficiency Expected: 02/25/2024 (Approximate), Expires: 11/30/2024 [facility] Work Phone: Comment on above: Expected: 02/25/2024 (Approximate), Expi res: 11/30/2024 Start: 02-25-2024 End: 11-30-2024 Erythrocyte sedimentation rate SED RATE WESTERGREN Lab Routine Cystic fibrosis (HCC) 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 fibrosis with pulmonary manifestations (HCC) Vitamin D deficiency Expected: 02/25/2024 (Approximate), Expires: 11/30/2024 [facility] Work Phone: Comment on above: Expected: 02/25/2024 (Approximate), Expi res: 11/30/2024 Start: 02-25-2024 End: 11-30-2024 Gamma glutamyl transferase [Enzymatic activity/volume] in Serum or Plasma GGT BLD Lab Routine Cystic fibrosis (HCC) 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 fibrosis with pulmonary manifestations (HCC) Vitamin D deficiency Expected: 02/25/2024 (Approximate), Expires: 11/30/2024 [facility] Work Phone: Comment on above: Expected: 02/25/2024 (Approximate), Expi res: 11/30/2024 Start: 02-25-2024 End: 11-30-2024 IgE [Units/volume] in Serum or Plasma IGE BLD Lab Routine Cystic fibrosis (HCC) 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 fibrosis with pulmonary manifestations (HCC) Vitamin D deficiency Expected: 02/25/2024 (Approximate), Expires: 11/30/2024 [facility] Work Phone: Comment on above: Expected: 02/25/2024 (Approximate), Expi res: 11/30/2024 Start: 02-25-2024 End: 11-30-2024 Lipid 1996 panel - Serum or Plasma LIPID PANEL BASIC Lab Routine Cystic fibrosis (HCC) 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 fibrosis with pulmonary manifestations (HCC) Vitamin D deficiency Expected: 02/25/2024 (Approximate), Expires: 11/30/2024 [facility] Work Phone: Comment on above: Expected: 02/25/2024 (Approximate), Expi res: 11/30/2024 Start: 02-25-2024 End: 11-30-2024 Magnesium [Mass/volume] in Serum or Plasma MAGNESIUM BLD Lab Routine Cystic fibrosis (HCC) 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 fibrosis with pulmonary manifestations (HCC) Vitamin D deficiency Expected: 02/25/2024 (Approximate), Expires: 11/30/2024 [facility] Work Phone: Comment on above: Expected: 02/25/2024 (Approximate), Expi res: 11/30/2024 Start: 02-25-2024 End: 11-30-2024 PT panel - Platelet poor plasma by Coagulation assay PROTHROMBIN TIME/PT Lab Routine Cystic fibrosis (HCC) 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 fibrosis with pulmonary manifestations (HCC) Vitamin D deficiency Expected: 02/25/2024 (Approximate), Expires: 11/30/2024 [facility] Work Phone: Comment on above: Expected: 02/25/2024 (Approximate), Expi res: 11/30/2024 Start: 02-25-2024 End: 11-30-2024 Retinol [Mass/volume] in Serum or Plasma VITAMIN A/RETINOL Lab Routine Cystic fibrosis (HCC) 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 fibrosis with pulmonary manifestations (HCC) Vitamin D deficiency Expected: 02/25/2024 (Approximate), Expires: 11/30/2024 [facility] Work Phone: Comment on above: Expected: 02/25/2024 (Approximate), Expi res: 11/30/2024 Start: 02-18-2024 End: 05-19-2024 CREATININE BLD CREATININE BLD Lab Routine Infection Expected: 02/18/2024, Expires: 05/19/2024 [facility] Work Phone: Comment on above: Expected: 02/18/2024, Expires: Start: 02-18-2024 End: 05-19-2024 Vancomycin [Mass/volume] in Serum or Plasma --random VANCOMYCIN Lab Routine Infection Expected: 02/18/2024, Expires: 05/19/2024 [facility] Work Phone: Comment on above: Expected: 02/18/2024, Expires: 4 Start: 02-16-2024 End: 05-17-2024 CELIAC COMPREHENSIVE PANEL CELIAC COMPREHENSIVE PANEL Lab Routine 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) Expected: 02/16/2024, Expires: 05/17/2024 [facility] Work Phone: Comment on above: Expected: 02/16/2024, Expires: 4 Start: 01-25-2024 Dexa Scan CF Dexa Scan [facility] Start: 01-07-2024 End: 11-30-2024 25-hydroxyvitamin D3 [Mass/volume] in Serum or Plasma VITAMIN D 25 HYDROXY Lab Routine Cystic fibrosis (HCC) 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) 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) Dietary counseling and surveillance Vitamin D deficiency Expected: 01/07/2024 (Approximate), Expires: 11/30/2024 [facility] Work Phone: Comment on above: Expected: 01/07/2024 (Approximate), Expi res: 11/30/2024 Start: 01-07-2024 End: 11-30-2024 Alpha tocopherol [Mass/volume] in Serum or Plasma VITAMIN E/TOCOPHEROL Lab Routine Cystic fibrosis (HCC) 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) 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) Dietary counseling and surveillance Vitamin D deficiency Expected: 01/07/2024 (Approximate), Expires: 11/30/2024 [facility] Work Phone: Comment on above: Expected: 01/07/2024 (Approximate), Expi res: 11/30/2024 Start: 01-07-2024 End: 11-30-2024 C reactive protein [Mass/volume] in Serum or Plasma C-REACTIVE PROTEIN (CRP) Lab Routine Cystic fibrosis (HCC) 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) 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) Dietary counseling and surveillance Vitamin D deficiency Expected: 01/07/2024 (Approximate), Expires: 11/30/2024 [facility] Work Phone: Comment on above: Expected: 01/07/2024 (Approximate), Expi res: 11/30/2024 Start: 01-07-2024 End: 11-30-2024 CBC W Auto Differential panel - Blood CBC + DIFF Lab Routine Cystic fibrosis (HCC) 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) 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) Dietary counseling and surveillance Vitamin D deficiency Expected: 01/07/2024 (Approximate), Expires: 11/30/2024 [facility] Work Phone: Comment on above: Expected: 01/07/2024 (Approximate), Expi res: 11/30/2024 Start: 01-07-2024 End: 11-30-2024 Comprehensive metabolic 2000 panel - Serum or Plasma COMP METABOLIC PANEL Lab Routine Cystic fibrosis (HCC) 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) 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) Dietary counseling and surveillance Vitamin D deficiency Expected: 01/07/2024 (Approximate), Expires: 11/30/2024 [facility] Work Phone: Comment on above: Expected: 01/07/2024 (Approximate), Expi res: 11/30/2024 Start: 01-07-2024 End: 11-30-2024 Erythrocyte sedimentation rate SED RATE WESTERGREN Lab Routine Cystic fibrosis (HCC) 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) 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) Dietary counseling and surveillance Vitamin D deficiency Expected: 01/07/2024 (Approximate), Expires: 11/30/2024 [facility] Work Phone: Comment on above: Expected: 01/07/2024 (Approximate), Expi res: 11/30/2024 Start: 01-07-2024 End: 11-30-2024 Gamma glutamyl transferase [Enzymatic activity/volume] in Serum or Plasma GGT BLD Lab Routine Cystic fibrosis (HCC) 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) 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) Dietary counseling and surveillance Vitamin D deficiency Expected: 01/07/2024 (Approximate), Expires: 11/30/2024 [facility] Work Phone: Comment on above: Expected: 01/07/2024 (Approximate), Expi res: 11/30/2024 Start: 01-07-2024 End: 11-30-2024 Hemoglobin A1c in Blood HGB A1C Lab Routine Cystic fibrosis (HCC) 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) 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) Dietary counseling and surveillance Vitamin D deficiency Expected: 01/07/2024 (Approximate), Expires: 11/30/2024 [facility] Work Phone: Comment on above: Expected: 01/07/2024 (Approximate), Expi res: 11/30/2024 Start: 01-07-2024 End: 11-30-2024 IgE [Units/volume] in Serum or Plasma IGE BLD Lab Routine Cystic fibrosis (HCC) 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) 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) Dietary counseling and surveillance Vitamin D deficiency Expected: 01/07/2024 (Approximate), Expires: 11/30/2024 [facility] Work Phone: Comment on above: Expected: 01/07/2024 (Approximate), Expi res: 11/30/2024 Start: 01-07-2024 End: 11-30-2024 Lipid 1996 panel - Serum or Plasma LIPID PANEL BASIC Lab Routine Cystic fibrosis (HCC) 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) 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) Dietary counseling and surveillance Vitamin D deficiency Expected: 01/07/2024 (Approximate), Expires: 11/30/2024 [facility] Work Phone: Comment on above: Expected: 01/07/2024 (Approximate), Expi res: 11/30/2024 Start: 01-07-2024 End: 11-30-2024 Magnesium [Mass/volume] in Serum or Plasma MAGNESIUM BLD Lab Routine Cystic fibrosis (HCC) 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) 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) Dietary counseling and surveillance Vitamin D deficiency Expected: 01/07/2024 (Approximate), Expires: 11/30/2024 [facility] Work Phone: Comment on above: Expected: 01/07/2024 (Approximate), Expi res: 11/30/2024 Start: 01-07-2024 End: 11-30-2024 PT panel - Platelet poor plasma by Coagulation assay PROTHROMBIN TIME/PT Lab Routine Cystic fibrosis (HCC) 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) 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) Dietary counseling and surveillance Vitamin D deficiency Expected: 01/07/2024 (Approximate), Expires: 11/30/2024 [facility] Work Phone: Comment on above: Expected: 01/07/2024 (Approximate), Expi res: 11/30/2024 Start: 01-07-2024 End: 11-30-2024 Retinol [Mass/volume] in Serum or Plasma VITAMIN A/RETINOL Lab Routine Cystic fibrosis (HCC) 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) Diabetes mellitus related to CF (cystic fibrosis) ([facility]) Dietary counseling and surveillance Vitamin D deficiency Expected: 01/07/2024 (Approximate), Expires: 11/30/2024 [facility] Work Phone: Comment on above: Expected: 01/07/2024 (Approximate), Expi res: 11/30/2024 Start: 01-03-2024 Hemoglobin A1c measurement HbA1C [facility] Start: 01-03-2024 Hemoglobin A1c/Hemoglobin.total in Blood HBA1C [facility] Start: 12-19-2023 Glaucoma screening Dilated Retinal Exam [facility] Start: 12-19-2023 Hepatitis C antibody, confirmatory test DILATED RETINAL EXAM [facility] Start: 11-05-2023 3 comp foot exam completed DIABETIC FOOT EXAM [facility] Start: 09-07-2023 Hemoglobin A1c/Hemoglobin.total in Blood HBA1C [facility] Start: 08-21-2023 End: 10-21-2023 Comprehensive metabolic 2000 panel - Serum or Plasma COMP METABOLIC PANEL Lab Routine Cystic fibrosis ([facility]) Expected: 08/21/2023, Expires: 10/21/2023 [facility] Work Phone: Comment on above: Expected: 08/21/2023, Expires: 3 Start: 08-18-2023 End: 10-18-2023 Ferritin [Mass/volume] in Serum or Plasma [facility] Work Phone: Comment on above: Expected: 08/18/2023, Expires: 3 Start: 08-18-2023 End: 10-18-2023 Folate [Mass/volume] in Serum or Plasma [facility] Work Phone: Comment on above: Expected: 08/18/2023, Expires: 3 Start: 08-18-2023 End: 10-18-2023 Iron and Iron binding capacity panel - Serum or Plasma [facility] Work Phone: Comment on above: Expected: 08/18/2023, Expires: 3 Start: 08-18-2023 End: 10-18-2023 Methylmalonate [Moles/volume] in Serum or Plasma [facility] Work Phone: Comment on above: Expected: 08/18/2023, Expires: 3 Start: 08-18-2023 End: 10-18-2023 Transferrin receptor.soluble [Mass/volume] in Serum or Plasma [facility] Work Phone: Comment on above: Expected: 08/18/2023, Expires: 3 Start: 08-01-2023 Covid-19 Vaccine () Covid-19 Vaccine () [facility] Start: 08-01-[address] [facility] Start: 07-28-2023 Hepatitis B screening URINE ALBUMIN:CREATININE RATIO [facility] Start: 05-14-2023 CMP CF CMP CF [facility] Start: 05-13-2023 CBC CF CBC [facility] Start: 05-12-2023 Urinalysis CF Urinalysis [facility] Start: 04-07-2023 End: 06-07-2023 Thyrotropin [Units/volume] in Serum or Plasma TSH BLD Lab Routine Type 1 diabetes mellitus with hyperglycemia (HCC) Expected: 04/07/2023, Expires: 06/07/2023 [facility] Work Phone: Comment on above: Expected: 04/07/2023, Expires: 3 Start: 02-26-2023 End: 04-28-2023 Comprehensive metabolic 2000 panel - Serum or Plasma [facility] Work Phone: Comment on above: Expected: 02/26/2023, Expires: 3 Start: 02-15-2023 Hepatitis C antibody, confirmatory test DILATED RETINAL EXAM [facility] Start: 02-03-2023 Hemoglobin A1c/Hemoglobin.total in Blood HBA1C [facility] Start: 12-20-2022 End: 02-19-2023 Thyrotropin [Units/volume] in Serum or Plasma TSH BLD Lab Routine Type 1 diabetes mellitus with hyperglycemia (HCC) Expected: 12/20/2022, Expires: 02/19/2023 [facility] Work Phone: Comment on above: Expected: 12/20/2022, Expires: 3 Start: 12-06-2022 Vitamin A CF Vitamin A [facility] Start: 12-06-2022 Vitamin D 25 Hydroxy CF Vitamin D 25 Hydroxy CF [facility] Start: 12-06-2022 Vitamin E CF Vitamin E [facility] Start: 12-01-2022 DEPRESSION ASSESSMENT DEPRESSION ASSESSMENT [facility] Start: 11-29-2022 End: 01-29-2023 Comprehensive metabolic 2000 panel - Serum or Plasma COMP METABOLIC PANEL Lab Routine Cystic fibrosis with pulmonary manifestations (HCC) Expected: 11/29/2022, Expires: 01/29/2023 [facility] Work Phone: Comment on above: Expected: 11/29/2022, Expires: 3 Start: 11-20-2022 End: 01-20-2023 Phosphate [Mass/volume] in Serum or Plasma [facility] Work Phone: Comment on above: Expected: 11/20/2022, Expires: 3 Start: 11-18-2022 End: 01-18-2023 CBC W Auto Differential panel - Blood CBC + DIFF Lab Routine Cystic fibrosis with pulmonary manifestations (HCC) Expected: 11/18/2022, Expires: 01/18/2023 [facility] Work Phone: Comment on above: Expected: 11/18/2022, Expires: 3 Start: 11-18-2022 End: 01-18-2023 Comprehensive metabolic 2000 panel - Serum or Plasma COMP METABOLIC PANEL Lab Routine Cystic fibrosis with pulmonary manifestations (HCC) Expected: 11/18/2022, Expires: 01/18/2023 [facility] Work Phone: Comment on above: Expected: 11/18/2022, Expires: 3 Start: 11-18-2022 End: 01-18-2023 Hepatic function 2000 panel - Serum or Plasma HEPATIC FUNCTION PNL Lab Routine Cystic fibrosis with pulmonary manifestations (HCC) Expected: 11/18/2022, Expires: 01/18/2023 [facility] Work Phone: Comment on above: Expected: 11/18/2022, Expires: 3 Start: 11-18-2022 End: 01-18-2023 Magnesium [Mass/volume] in Serum or Plasma MAGNESIUM BLD Lab Routine Cystic fibrosis with pulmonary manifestations (HCC) Expected: 11/18/2022, Expires: 01/18/2023 [facility] Work Phone: Comment on above: Expected: 11/18/2022, Expires: 3 Start: 10-17-2022 Hemoglobin A1c/Hemoglobin.total in Blood HBA1C [facility] Start: 09-11-2022 End: 11-11-2022 Comprehensive metabolic 2000 panel - Serum or Plasma [facility] Work Phone: Comment on above: Expected: 09/11/2022, Expires: 2 Start: 09-10-2022 3 comp foot exam completed DIABETIC FOOT EXAM [facility] Start: 08-09-2022 End: 10-09-2022 Comprehensive metabolic 1999 panel - Serum or Plasma COMP METABOLIC PANEL Lab Routine Cystic fibrosis (HCC) Expected: 08/09/2022, Expires: 10/09/2022 [facility] Work Phone: Comment on above: Expected: 08/09/2022, Expires: 2 Start: 08-01-2022 FLU (Season Ended) FLU (Season Ended) [facility] Start: 08-01-[address] [facility] Start: 2022 End: 09-16-2022 Alpha tocopherol [Mass/volume] in Serum or Plasma [facility] Work Phone: Comment on above: Expected: 2022, Expires: 2 Start: 2022 End: 09-16-2022 Retinol [Mass/volume] in Serum or Plasma [facility] Work Phone: Comment on above: Expected: 2022, Expires: 2 Start: 06-23-2022 Hemoglobin A1c/Hemoglobin.total in Blood HBA1C [facility] Start: 05-29-2022 Tetanus Diphtheria and Pertussis Vaccines (7 - Td or Tdap) Tetanus Diphtheria and Pertussis Vaccines (7 - Td or Tdap) [facility] Start: 05-29-2022 Urine microalbumin profile [facility] Start: 03-19-2022 GGT CF GGT CF [facility] Start: 03-19-2022 HbA1c CF HbA1c CF [facility] Start: 03-19-2022 IgE CF IgE CF [facility] Start: 03-19-2022 Lipid Panel CF Lipid Panel [facility] Start: 03-19-2022 PT/INR CF PT/INR CF [facility] Start: 03-19-2022 Urine Microalbumin CF Urine Microalbumin CF [facility] Start: 02-12-2022 Hepatitis B screening URINE ALBUMIN:CREATININE RATIO [facility] Start: 02-12-2022 Hepatitis B surface antibody level LDL CHOLESTEROL [facility] Start: 01-30-2022 COVID-19 VACCINE (4 - Booster for Pfizer series) COVID-19 VACCINE (4 - Booster for Pfizer series) [facility] Start: 12-01-2021 DEPRESSION ASSESSMENT DEPRESSION ASSESSMENT [facility] Start: 11-03-2019 Testosterone Level CF Testosterone Level [facility] Start: 2012 HEPATITIS A (1 of 2 - Risk 2-dose series) HEPATITIS A (1 of 2 - Risk 2-dose series) [facility] Start: 2012 Hepatitis A Vaccine (1 of 2 - Risk 2-dose series) Hepatitis A Vaccine (1 of 2 - Risk 2-dose series) [facility] Start: 2011 ANNUAL PCP TEAM CHRONIC DISEASE VISIT ANNUAL PCP TEAM CHRONIC DISEASE VISIT [facility] Start: 2011 BP CONTROLLED (<130/80) BP CONTROLLED (<130/80) [facility] Start: 2011 HEPATITIS C SCREENING HEPATITIS C SCREENING [facility] Start: 2011 HIV SCREENING HIV SCREENING [facility] Start: 2011 HIV screening HIV Screening [facility] Start: 2009 MenB (1 of 2 - MenB 2-Dose Series) MenB (1 of 2 - MenB 2-Dose Series) [facility] Start: 2009 ONE PNEUMOVAX PRIOR TO AGE 65 ONE PNEUMOVAX PRIOR TO AGE [address] [facility] Start: 2005 Adult depression screening assessment DEPRESSION SCREENING [facility] Start: 07-11-1999 Varicella (1 of 2 - 2-dose childhood series) Varicella (1 of 2 - 2-dose childhood series) [facility] Start: 1994 HEPATITIS A (1 of 2 - Risk 2-dose series) HEPATITIS A (1 of 2 - Risk 2-dose series) [facility] AFB CULTURE & STAIN FOR PATIENTS WITH CYSTIC FIBROSIS AFB CULTURE & STAIN FOR PATIENTS WITH CYSTIC FIBROSIS Microbiology Routine Cystic fibrosis ([facility]) Ordered: 01/31/2025 [facility] Work Phone: Comment on above: Ordered: 01/31/2025 AFB CULTURE/STAIN CY STIC FIBROSIS AFB CULTURE/STAIN CYSTIC FIBROSIS Microbiology Routine Cystic fibrosis with pulmonary manifestations ([facility]) 2022 9:39 AM EDT [facility] Work Phone: AFB CULTURE/STAIN CY STIC FIBROSIS AFB CULTURE/STAIN CYSTIC FIBROSIS Microbiology Routine CF (cystic fibrosis) ([facility]) 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 Ordered: 09/11/2022 [facility] Work Phone: Comment on above: Ordered: 09/11/2022 AFB CULTURE/STAIN CY STIC FIBROSIS AFB CULTURE/STAIN CYSTIC FIBROSIS Microbiology Routine Cystic fibrosis ([facility]) Ordered: 02/18/2024 [facility] Work Phone: Comment on above: Ordered: 02/18/2024 Bacteria identified in Sputum by Cystic fibrosis respiratory culture CYSTIC FIBROSIS RESPIRATORY CULTURE Microbiology Routine Cystic fibrosis with pulmonary manifestations ([facility]) 2022 9:39 AM EDT [facility] Work Phone: Bacteria identified in Sputum by Cystic fibrosis respiratory culture CYSTIC FIBROSIS RESPIRATORY CULTURE Microbiology Routine CF (cystic fibrosis) ([facility]) 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 Ordered: 09/11/2022 [facility] Work Phone: Comment on above: Ordered: 09/11/2022 Bacteria identified in Sputum by Cystic fibrosis respiratory culture CYSTIC FIBROSIS RESPIRATORY CULTURE Microbiology Routine Cystic fibrosis with pulmonary manifestations (HCC) 03/05/2023 5:02 PM EDT [facility] Work Phone: Bacteria identified in Sputum by Cystic fibrosis respiratory culture CYSTIC FIBROSIS RESPIRATORY CULTURE Microbiology Routine Cystic fibrosis with pulmonary manifestations (HCC) 06/04/2023 4:27 PM EDT [facility] Work Phone: Bacteria identified in Sputum by Cystic fibrosis respiratory culture CYSTIC FIBROSIS RESPIRATORY CULTURE Microbiology Routine Cystic fibrosis ([facility]) Ordered: 02/18/2024 [facility] Work Phone: Comment on above: Ordered: 02/18/2024 Bacteria identified in Sputum by Cystic fibrosis respiratory culture CYSTIC FIBROSIS RESPIRATORY CULTURE Microbiology Routine Cystic fibrosis with pulmonary exacerbation (HCC) 08/18/2024 3:54 PM EDT [facility] Work Phone: Bacteria identified in Sputum by Cystic fibrosis respiratory culture BACTERIAL CULTURE, RESPIRATORY, CYSTIC FIBROSIS Microbiology Routine Cystic fibrosis ([facility]) Ordered: 01/31/[address] [facility] Comment on above: Ordered: 01/31/2025 Bacteria identified in Sputum by Cystic fibrosis respiratory culture BACTERIAL CULTURE, RESPIRATORY, CYSTIC FIBROSIS Microbiology Routine Cystic fibrosis ([facility]) Fever, unspecified fever cause 02/09/2025 11:[address] [facility] End: 11-29-2023 CBC W Auto Differential panel - Blood [facility] Work Phone: Comment on above: 99 Occurrences starting 11/29/2022 until 11/29/2023 2x per week for 6 Oc currences starting 11/29/2022 until 11/29/2023, 1 completed End: 08-18-2025 CBC W Auto Differential panel - Blood COMPLETE BLOOD COUNT AND DIFFERENTIAL Lab Routine Cystic fibrosis with pulmonary exacerbation (HCC) 2x per week for 10 Occurrences starting 08/18/2024 until 08/18/2025 [facility] Work Phone: Comment on above: 2x per week for 10 Occurrences starting 08/18/2024 until 08/18/2025 CBC W Ordered Manual Differential panel - Blood PATHOLOGIST INTERPRETATION WITH CBC AND DIFF Lab Routine 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 Routine times: 0600; 1100; 1400; 1900; 2200 for 1 Occurrences starting 05/12/2022 until 05/12/2022 [facility] Comment on above: For lab collect this frequency defaults to the next routine lab draw time. Routine times: 0600; 1100; 1400; 1900; 2200 for 1 Occurrences starting 05/12/2022 until 05/12/2022 End: 11-29-2023 Comprehensive metabolic 2000 panel - Serum or Plasma [facility] Work Phone: Comment on above: 99 Occurrences starting 11/29/2022 until 11/29/2023 2x per week for 6 Oc currences starting 11/29/2022 until 11/29/2023, 1 completed End: 08-18-2025 Comprehensive metabolic 2000 panel - Serum or Plasma COMPREHENSIVE METABOLIC PANEL Lab Routine Cystic fibrosis with pulmonary exacerbation (HCC) 2x per week for 10 Occurrences starting 08/18/2024 until 08/18/[address] [facility] Comment on above: 2x per week for 10 Occurrences starting 08/18/2024 until 08/18/2025 Continuous glucose monitoring analysis i&r GLUCOSE MONITOR, 72 HOUR, PHYS INTERP Procedures Routine Type 1 diabetes mellitus with hyperglycemia (HCC) Ordered: 12/22/2022 [facility] Work Phone: Comment on above: Ordered: 12/22/2022 Continuous glucose monitoring analysis i&r GLUCOSE MONITOR, 72 HOUR, PHYS INTERP Procedures Routine Type 1 diabetes mellitus with hyperglycemia (HCC) Ordered: 04/07/2023 [facility] Work Phone: Comment on above: Ordered: 04/07/2023 Continuous glucose monitoring analysis i&r GLUCOSE MONITOR, 72 HOUR, PHYS INTERP Procedures Routine Type 1 diabetes mellitus with hyperglycemia (HCC) Ordered: 08/11/2023 [facility] Work Phone: Comment on above: Ordered: 08/11/2023 Continuous glucose monitoring analysis i&r GLUCOSE MONITOR, 72 HOUR, PHYS INTERP Procedures Routine Type 1 diabetes mellitus with hyperglycemia (HCC) Ordered: 03/09/2024 [facility] Work Phone: Comment on above: Ordered: 03/09/2024 Continuous glucose monitoring analysis i&r GLUCOSE MONITOR, 72 HOUR, PHYS INTERP Procedures Routine Type 1 diabetes mellitus with hyperglycemia (HCC) Ordered: 07/06/[address] [facility] Comment on above: Ordered: 07/06/2024 Continuous glucose monitoring analysis i&r GLUCOSE MONITOR, 72 HOUR, PHYS INTERP Procedures Routine Type 1 diabetes mellitus with hyperglycemia (HCC) Ordered: 10/12/2024 [facility] Work Phone: Comment on above: Ordered: 10/12/2024 Continuous glucose monitoring analysis i&r GLUCOSE MONITOR, 72 HOUR, PHYS INTERP Procedures Routine Type 1 diabetes mellitus with hyperglycemia (HCC) Ordered: 02/14/2025 [facility] Work Phone: Comment on above: Ordered: 02/14/2025 COVID & INFLUENZA A/ B & RSV PCR, ROUTINE COVID & INFLUENZA A/B & RSV PCR, ROUTINE Microbiology Routine Fever, unspecified fever cause Acute cough Cystic fibrosis (HCC) Ordered: 01/31/[address] [facility] Comment on above: Ordered: 01/31/2025 DDI VIBRATION CONTRO LLED TRANSIENT ELASTOGRAPHY (VCTE) DDI VIBRATION CONTROLLED TRANSIENT ELASTOGRAPHY (VCTE) Procedures Routine Cystic fibrosis with liver disease (HCC) Ordered: 07/21/2022 [facility] Work Phone: Comment on above: Ordered: [...] osteoporosis 1 Occurrences starting 07/21/2022 until 08/20/2023 [facility] Work Phone: Comment on above: 1 Occurrences starting 07/21/2022 until 08/20/2023 End: 08-30-2024 Dxa bone density study axial skeleton DXA-AXIAL SKELETON WITH VFA Radiology Routine Osteoporosis without current pathological fracture, unspecified osteoporosis type 1 Occurrences starting 08/01/2023 until 08/30/2024 [facility] Work Phone: Comment on above: 1 Occurrences starting 08/01/2023 until 08/30/2024 Dxa bone density rut dy axial skeleton DXA-AXIAL SKELETON WITH VFA Radiology Routine Osteoporosis without current pathological fracture, unspecified osteoporosis type 09/24/2023 9:35 AM EDT [facility] Work Phone: End: 06-04-2025 DXA Skeletal system.axial Views for bone density and vertebral fracture DXA-AXIAL SKELETON WITH VFA Radiology Routine Cystic fibrosis (HCC) 1 Occurrences starting 05/05/2024 until 06/04/2025 [facility] Work Phone: Comment on above: 1 Occurrences starting 05/05/2024 until 06/04/2025 End: 07-21-2023 Echocardiography ECHO Cardiology Routine Cystic fibrosis with pulmonary manifestations (HCC) 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) Chronic pansinusitis Low weight Encounter for screening for osteoporosis 1 Occurrences starting 07/21/2022 until 07/21/2023 [facility] Work Phone: Comment on above: 1 Occurrences starting 07/21/2022 until 07/21/2023 Hemoglobin A1c/Hemoglobin.total in Blood HEMOGLOBIN A1C (POC) Lab Routine Type 1 diabetes mellitus with hyperglycemia (HCC) Ordered: 03/09/2024 [facility] Work Phone: Comment on above: Ordered: 03/09/2024 Hemoglobin A1c/Hemoglobin.total in Blood HEMOGLOBIN A1C (POC) Lab Routine Type 1 diabetes mellitus with hyperglycemia (HCC) Ordered: 07/06/2024 [facility] Work Phone: Comment on above: Ordered: 07/06/2024 End: 11-29-2023 Magnesium [Mass/volume] in Serum or Plasma [facility] Work Phone: Comment on above: 99 Occurrences starting 11/29/2022 until 11/29/2023 2x per week for 6 Oc currences starting 11/29/2022 until 11/29/2023, 1 completed End: 08-18-2025 Magnesium [Mass/volume] in Serum or Plasma MAGNESIUM Lab Routine Cystic fibrosis with pulmonary exacerbation ([facility]) 2x per week for 10 Occurrences starting 08/18/2024 until 08/18/[address] 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 Comment on above: Ordered: 01/31/2025 End: 05-12-2022 Respiratory culture Respiratory culture Microbiology Routine For lab collect this frequency defaults to the next routine lab draw time. Routine times: 0600; 1100; 1400; 1900; 2200 for 1 Occurrences starting 05/12/2022 until 05/12/2022 [facility] Comment on above: For lab collect this frequency defaults to the next routine lab draw time. 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) 1 Occurrences starting 07/21/2022 until 08/20/2023 [facility] Work Phone: Comment on above: 1 Occurrences starting 07/21/2022 until 08/20/2023 SPIROMETRY BASELINE ONLY SPIROME TRY BASELINE ONLY PFT Routine Cystic fibrosis (HCC) 08/09/2022 10:00 AM EDT [facility] Work Phone: SPIROMETRY BASELINE ONLY SPIROME TRY BASELINE ONLY PFT Routine Cystic fibrosis with pulmonary manifestations (HCC) 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 [employer] Work Phone: End: 09-27-2023 SPIROMETRY BASELINE ONLY SPIROMETRY BASELINE ONLY PFT Routine CF (cystic fibrosis) (HCC) 1 Occurrences starting 08/28/2022 until 09/27/2023 [facility] Work Phone: Comment on above: 1 Occurrences starting 08/28/2022 until 09/27/2023 SPIROMETRY BASELINE ONLY SPIROME TRY BASELINE ONLY PFT Routine Cystic fibrosis (HCC) 11/05/2022 11:28 AM [facility] [employer] Work Phone: End: 12-11-2023 SPIROMETRY BASELINE ONLY SPIROMETRY BASELINE ONLY PFT Routine Cystic fibrosis (HCC) 1 Occurrences starting 11/11/2022 until 12/11/2023 [facility] Work Phone: Comment on above: 1 Occurrences starting 11/11/2022 until 12/11/2023 End: 12-20-2023 SPIROMETRY BASELINE ONLY SPIROMETRY BASELINE ONLY PFT Routine Cystic fibrosis with pulmonary manifestations (HCC) Cystic fibrosis with pulmonary exacerbation (HCC) 1 Occurrences starting 11/20/2022 until 12/20/2023 [facility] Work Phone: Comment on above: 1 Occurrences starting 11/20/2022 until 12/20/2023 SPIROMETRY BASELINE ONLY SPIROME TRY BASELINE ONLY PFT Routine CF (cystic fibrosis) (HCC) 12/04/2022 3:26 PM EST [facility] Work Phone: End: 04-01-2024 SPIROMETRY BASELINE ONLY SPIROMETRY BASELINE ONLY PFT Routine Cystic fibrosis with pulmonary manifestations (HCC) 1 Occurrences starting 03/03/2023 until 04/01/2024 [facility] Work Phone: Comment on above: 1 Occurrences starting 03/03/2023 until 04/01/2024 End: 04-08-2024 SPIROMETRY BASELINE ONLY SPIROMETRY BASELINE ONLY PFT Routine Cystic fibrosis (HCC) 1 Occurrences starting 03/10/2023 until 04/08/2024 [facility] Work Phone: Comment on above: 1 Occurrences starting 03/10/2023 until 04/08/2024 End: 04-17-2024 SPIROMETRY BASELINE ONLY SPIROMETRY BASELINE ONLY PFT Routine Cystic fibrosis (HCC) 1 Occurrences starting 03/19/2023 until 04/17/2024 [facility] Work Phone: Comment on above: 1 Occurrences starting 03/19/2023 until 04/17/2024 SPIROMETRY BASELINE ONLY SPIROME TRY BASELINE ONLY PFT Routine Cystic fibrosis (HCC) 06/04/2023 3:30 PM EDT [facility] Work Phone: End: 07-03-2024 SPIROMETRY BASELINE ONLY SPIROMETRY BASELINE ONLY PFT Routine Cystic fibrosis with pulmonary manifestations (HCC) 1 Occurrences starting 06/04/2023 until 07/03/2024 [facility] Work Phone: Comment on above: 1 Occurrences starting 06/04/2023 until 07/03/2024 End: 10-23-2024 SPIROMETRY BASELINE ONLY SPIROMETRY BASELINE ONLY PFT Routine Cystic fibrosis with pulmonary manifestations (HCC) 1 Occurrences starting 09/24/2023 until 10/23/2024 [facility] Work Phone: Comment on above: 1 Occurrences starting 09/24/2023 until 10/23/2024 SPIROMETRY BASELINE ONLY SPIROME TRY BASELINE ONLY PFT Routine Cystic fibrosis with pulmonary manifestations (HCC) 05/05/2024 2:52 PM EDT [facility] Work Phone: End: 06-04-2025 SPIROMETRY BASELINE ONLY [facility] Comment on above: 1 Occurrences starting 05/05/2024 until 06/04/2025 SPIROMETRY BASELINE ONLY SPIROME TRY BASELINE ONLY PFT Routine Cystic fibrosis with pulmonary manifestations (HCC) 08/18/2024 1:10 PM EDT [facility] Work Phone: End: 10-02-2025 SPIROMETRY BASELINE ONLY SPIROMETRY BASELINE ONLY PFT Routine Cystic fibrosis (HCC) 1 Occurrences starting 09/02/2024 until 10/02/2025 [facility] Work Phone: Comment on above: 1 Occurrences starting 09/02/2024 until 10/02/2025 End: 10-09-2025 SPIROMETRY BASELINE ONLY SPIROMETRY BASELINE ONLY PFT Routine Cystic fibrosis ([facility]) 1 Occurrences starting 09/09/2024 until 10/09/2025 [facility] Work Phone: Comment on above: 1 Occurrences starting 09/09/2024 until 10/09/2025 SPIROMETRY BASELINE ONLY SPIROME TRY BASELINE ONLY PFT Routine Cystic fibrosis (HCC) 10/06/2024 12:34 PM EST [facility] Work Phone: End: 11-05-2025 SPIROMETRY BASELINE ONLY SPIROMETRY BASELINE ONLY PFT Routine Cystic fibrosis (HCC) 1 Occurrences starting 10/06/2024 until 11/05/[address] [facility] Comment on above: 1 Occurrences starting 10/06/2024 until 11/05/2025 SPIROMETRY BASELINE ONLY SPIROME TRY BASELINE ONLY PFT Routine Cystic fibrosis with pulmonary manifestations (HCC) 01/05/2025 1:04 PM EST [facility] Work Phone: SPIROMETRY BASELINE ONLY SPIROME TRY BASELINE ONLY PFT Routine Cystic fibrosis (HCC) 02/09/2025 10:35 AM EDT [facility] Work Phone: End: 03-11-2026 SPIROMETRY BASELINE ONLY SPIROMETRY BASELINE ONLY PFT Routine Cystic fibrosis (HCC) 1 Occurrences starting 02/09/2025 until 03/11/2026 [facility] Work Phone: Comment on above: 1 Occurrences starting 02/09/2025 until 03/11/2026 End: 05-26-2026 SPIROMETRY BASELINE ONLY SPIROMETRY BASELINE ONLY PFT Routine Cystic fibrosis (HCC) 1 Occurrences starting 04/26/2025 until 05/26/2026 [facility] Work Phone: Comment on above: 1 Occurrences starting 04/26/2025 until 05/26/2026 End: 05-12-2022 Spirometry- on admission Spirometry- on admission PFT Routine One Time for 1 Occurrences starting 05/12/2022 until 05/12/2022 [facility] Work Phone: Comment on above: One [...] osteoporosis 1 Occurrences starting 07/21/2022 until 08/20/2023 [facility] Work Phone: Comment on above: 1 Occurrences starting 07/21/2022 until 08/20/2023 End: 11-29-2023 Vancomycin [Mass/volume] in Serum or Plasma --random VANCOMYCIN Lab Routine Cystic fibrosis with pulmonary manifestations (HCC) 2x per week for 6 Occurrences starting 11/29/2022 until 11/29/2023, 1 completed [facility] Work Phone: Comment on above: 2x per week for 6 Occurrences starting 1 until 11/29/2023, 1 completed End: 06-17-2024 XR ABDOMEN 1V SUPINE XR ABDOMEN 1V SUPINE Radiology Routine Cystic fibrosis (HCC) 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) 1 Occurrences starting 05/19/2023 until 06/17/2024 [facility] Work Phone: Comment on above: 1 Occurrences starting 05/19/2023 until 06/17/2024 XR Chest PA and Lateral XR CHEST 2V FRONTAL/LAT Radiology Routine Cystic fibrosis with pulmonary manifestations (HCC) 02/01/2025 11:44 AM EST [facility] Work Phone: [facility] Immunizations Immunization Date Immunization Notes Care Provider Chester aceves 12-04-2022 COVID-19 booster vaccine, age 12+ yr, bivalent (PFIZER-BIONTECH) [place] Work Phone: [facility] 12-04-2022 influenza, injectabl e, quadrivalent, contains preservative [place] Work Phone: [facility] 12-04-2022 influenza virus vacc ine, unspecified formulation Cheyanne Kraus [facility] 12-05-2021 PFIZER (purple cap) COVID-19, mRNA, LNP-S, 30mcg/0.3mL dose Sabina Larios MD Work Phone: [facility] Work Phone: 01-21-2021 PFIZER (purple cap) COVID-19, mRNA, LNP-S, 30mcg/0.3mL dose Sabina Larios MD Work Phone: [facility] 12-24-2020 PFIZER (purple cap) COVID-19, mRNA, LNP-S, 30mcg/0.3mL dose Sabina Larios MD Work Phone: [facility] 10-11-2019 influenza, injectabl e, quadrivalent, preservative free Miguelina Murray RN [facility] 07-28-2019 pneumococcal polysaccharide vaccine, 23 valent Miguelina Murray RN [facility] 05-26-2019 pneumococcal conjuga te vaccine, 13 valent Miguelina Murray RN [facility] 11-05-2018 influenza virus vacc ine, unspecified formulation Sabina Larios MD Work Phone: [facility] 11-05-2018 influenza, injectabl e, quadrivalent, contains preservative Miguelina Murray RN [facility] 11-05-2018 influenza, seasonal, injectable Miguelina Murray RN [facility] 09-02-2016 influenza, injectabl e, quadrivalent, preservative free Miguelina Murray [facility] 09-13-2013 Influenza Vaccine 0. 5 mL >= 3 Yr Trivalent Sabina Larios MD Work Phone: [facility] 09-13-2013 influenza, seasonal, injectable Miguelina Murray RN [facility] 05-29-2012 tetanus toxoid, redu juve diphtheria toxoid, and acellular pertussis vaccine, adsorbed Forrest Hale MD Work Phone: [facility] 05-27-2012 meningococcal polysaccharide (groups A, C, Y and W-135) diphtheria toxoid conjugate vaccine (MCV4P) Miguelina Murray RN [facility] 05-27-2012 Meningococcal, MCV4, unspecified conjugate formulation(groups A, C, Y and W-135) Forrest Hale MD Work Phone: [facility] 10-23-2011 influenza virus vacc ine, split virus (incl. purified surface antigen) Sabina Larios MD Work Phone: [facility] 10-23-2011 influenza, seasonal, injectable Miguelina Murray RN [facility] 10-23-2011 pneumococcal polysaccharide vaccine, 23 valent Miguelina Murray RN [facility] 10-03-2010 influenza virus vacc ine, whole virus Miguelina Murray RN [facility] 10-19-2009 novel influenza-H1N1 -09, preservative-free, injectable Miguelina Murray RN [facility] 01-08-2006 pneumococcal conjuga te vaccine, 7 valent Miguelina Murray RN [facility] 07-18-1999 diphtheria, tetanus toxoids and pertussis vaccine Forrest Hale MD Work Phone: [facility] Work Phone: 06-13-1999 measles, mumps and rubella virus vaccine Forrest Hale MD Work Phone: [facility] Work Phone: 07-16-1995 diphtheria, tetanus toxoids and pertussis vaccine Miguelina Murray RN [facility] 07-16-1995 haemophilus influenz ae type b vaccine, PRP-T conjugate Miguelina Murray RN [facility] 02-13-1995 diphtheria, tetanus toxoids and pertussis vaccine Forrest Hale MD Work Phone: [facility] Work Phone: 02-13-1995 haemophilus influenz ae type b vaccine, HbOC conjugate Forrest Hale MD Work Phone: [facility] Work Phone: 02-13-1995 haemophilus influenz ae type b vaccine, PRP-T conjugate Sabina Larios MD Work Phone: [facility] 02-13-1995 measles, mumps and rubella virus vaccine Forrest Hale MD Work Phone: [facility] Work Phone: 02-13-1995 poliovirus vaccine, inactivated Forrest Hale MD Work Phone: [facility] Work Phone: 02-13-1995 trivalent poliovirus vaccine, live, oral Sabina Larios MD Work Phone: [facility] 05-20-1994 diphtheria, tetanus toxoids and pertussis vaccine Forrest Hale MD Work Phone: [facility] Work Phone: 05-20-1994 haemophilus influenz ae type b vaccine, HbOC conjugate Forrest Hale MD Work Phone: [facility] Work Phone: 05-20-1994 haemophilus influenz ae type b vaccine, PRP-T conjugate Sabina Larios MD Work Phone: [facility] 05-20-1994 hepatitis B vaccine, adult dosage Sabina Larios MD Work Phone: [facility] 05-20-1994 hepatitis B vaccine, pediatric or pediatric/adolescent dosage Forrest Hale MD Work Phone: [facility] Work Phone: 05-20-1994 poliovirus vaccine, inactivated Forrest Hale MD Work Phone: [facility] Work Phone: 05-20-1994 trivalent poliovirus vaccine, live, oral Sabina Larios MD Work Phone: [facility] 01-11-1994 diphtheria and tetan us toxoids, adsorbed for pediatric use Sabina Larios MD Work Phone: [facility] 01-11-1994 diphtheria, tetanus toxoids and pertussis vaccine Forrest Hale MD Work Phone: [facility] Work Phone: 01-11-1994 haemophilus influenz ae type b vaccine, HbOC conjugate Forrest Hale MD Work Phone: [facility] Work Phone: 01-11-1994 haemophilus influenz ae type b vaccine, PRP-T conjugate Sabina Larios MD Work Phone: [facility] 01-11-1994 poliovirus vaccine, inactivated Forrest Hale MD Work Phone: [facility] Work Phone: 01-11-1994 trivalent poliovirus vaccine, live, oral Sabina Larios MD Work Phone: [facility] 1993 diphtheria and tetan us toxoids, adsorbed for pediatric use Sabina Larios MD Work Phone: [facility] 1993 diphtheria, tetanus toxoids and pertussis vaccine Forrest Hale MD Work Phone: [facility] Work Phone: 1993 haemophilus influenz ae type b vaccine, HbOC conjugate Forrest Hale MD Work Phone: [facility] Work Phone: 1993 haemophilus influenz ae type b vaccine, PRP-T conjugate Sabina Larios MD Work Phone: [facility] 1993 hepatitis B vaccine, adult dosage Sabina Larios MD Work Phone: [facility] 1993 hepatitis B vaccine, pediatric or pediatric/adolescent dosage Forrest Hale MD Work Phone: [facility] Work Phone: 1993 poliovirus vaccine, inactivated Forrest Hale MD Work Phone: [facility] Work Phone: 1993 trivalent poliovirus vaccine, live, oral Sabina Larios MD Work Phone: [facility] 1993 hepatitis B vaccine, adult dosage Sabina Larios MD Work Phone: [facility] 1993 hepatitis B vaccine, pediatric or pediatric/adolescent dosage Forrest Hale MD Work Phone: [facility] Work Phone: Payers Date Payer Category Payer Self-pay [id number] 2019 Medicaid [facility] [id number] 2019-Present [phone] [address] [place] [address] Medicaid [id number] 2018 Medicaid [id number] 2018 Medicaid [id number] 2018 Unknown [id number] 2017 Unknown [id number] 1993 Unknown [id number] 1993 Unknown [id number] 1993 Unknown [id number] 1993 Unknown [id number] 1993 Unknown [id number] 1993 Unknown [id number] 1993 Unknown [id number] 1993 Unknown [id number] Unknown [id number] Unknown [facility] [id number] Unknown [id number] Unknown [id number] Unknown [id number] Unknown [id number] Unknown [id number] Unknown [id number] Unknown [id number] Unknown [id number] Unknown [id number] Unknown [id number] Unknown [id number] Social History Date Type Detail Facility Start: 12-06-2021 End: 2022 Tobacco smoking status NHIS Never smoked tobacco [facility] Start: 12-24-2021 End: 02-14-2025 Alcohol intake Current non-drinker of alcohol (finding) [facility] Start: 1995 Sex Assigned At Male [facility] Start: 03-09-2022 End: 08-06-2022 Exposure to SARS-CoV-2 (event) Unable to assess [facility] Work Phone: Start: 12-06-2021 End: 04-07-2023 Cigarette pack-years [facility] Work Phone: Start: 12-06-2021 End: 2022 Tobacco use and exposure Smokeless tobacco non-user [facility] Start: 05-12-2022 Alcohol intake Current drinke r of alcohol (finding) [facility] Start: 03-12-2019 History SDOH Alcohol Comment drinks one beer a night [facility] Start: 12-06-2021 Tobacco Comment No ETS exposure. [facility] Start: 1995 Sex Assigned At Not on file A [facility] Start: 05-02-2022 End: 05-12-2022 Exposure to SARS-CoV-2 (event) Yes [facility] Start: 07-07-2022 End: 09-11-2022 Exposure to SARS-CoV-2 (event) Not sure [facility] Start: 07-29-2022 End: 03-10-2023 History SDOH Financial [address] [facility] Start: 07-29-2022 End: 03-10-2023 History SDOH Food Worry [address] [facility] Start: 07-29-2022 End: 03-10-2023 History SDOH Transport Med [address] [facility] Start: 07-06-2020 End: 07-06-2020 Tobacco smoking status NHIS Unknown if ever smoked [facility] Start: 07-04-2020 Heavy [facility] Start: 07-04-2020 None [facility] Start: 07-04-2020 With Family [facility] Start: 07-06-2020 Vapor [facility] Start: 04-07-2023 End: 06-04-[address] [facility] Work Phone: How hard is it for y ou to pay for the very basics like food, housing, medical care, and heating Not hard at all [facility] Work Phone: (I/We) worried rosette er (my/our) food would run out before (I/we) got money to buy more. Never true [facility] Work Phone: In the past 12 month s, was there a time when you were not able to pay the mortgage or rent on time? No [facility] Work Phone: Start: 09-08-2020 Gender identity Identifies as male gender (finding) [facility] Start: 09-08-2020 Sexual orientation Heterosexual (thao roberts) [facility] How hard is it for y ou to pay for the very basics like food, housing, medical care, and heating Somewhat hard [facility] Work Phone: Medical Equipment Procedure Code Equipment Code Equipment Original Text Equipment Identifier Dates [id number], [id number], [id number], [id number], [id number], [id number], [id number], [id number] Start: 09-10-2021 End: 02-14-2025 Comment on above: 5x/day 3x/day Use as instructed 3x /day Functional Status Date Assessment Result Facility 02-16-2024 Are you deaf, or do you have serious difficulty hearing No 02/16/2024 2:23 PM EDT Crystal Camargo, OLEKSANDR No [facility] 02-16-2024 Are you blind, or do you have serious difficulty seeing, even when wearing glasses No 02/16/2024 2:23 PM EDT Crystal Camargo, OLEKSANDR No [facility] 02-16-2024 Do you have serious difficulty walking or climbing stairs No 02/16/2024 2:23 PM EDT Crystal Camargo, OLEKSANDR No [facility] 02-16-2024 Do you have difficul ty dressing or bathing No 02/16/2024 2:23 PM EDT Crystal Camargo, OLEKSANDR No [facility] 02-16-2024 Because of a physica l, mental, or emotional condition, do you have difficulty doing errands alone such as visiting a physician's office or shopping No 02/16/2024 2:23 PM EDT Crystal Camargo, OLEKSANDR No [facility] Mental Status Date Assessment Result Facility 02-16-2024 Because of a physica l, mental, or emotional condition, do you have serious difficulty concentrating, remembering, or making decisions No 02/16/2024 2:23 PM EDT Crystal Camargo, OLEKSANDR No [facility] Clinical Notes 03-05-2022 to 04-08-2025 Telephone [...] mouth two times a day. Silke Amado [facility] 04-08-2025 Miscellaneous Notes Patient electronically sent a request for the following prescription(s) Date of Last Visit: 02/09/2025 Recommended Follow Up: n/a Date of Follow-Up: n/a Requested Prescriptions Pending Prescriptions Disp Refills doxycycline (VIBRA-TABS) 100 mg tablet 28 tablet 0 Sig: Take 1 tablet by mouth two times a day. Silke Amado documented in this encounter [facility] 04-06-2025 Telephone encounter Note Summary: Complex Medical Help Program Received a fax requesting providers signature for a complex Medical Help program for patient. Printed and place in folder near Admin desk. Once signed and completed it will be fax to the number provided. [facility] 04-06-2025 Miscellaneous Notes Summary: Complex Medical Help Program Received a fax requesting providers signature for a complex Medical Help program for patient. Printed and place in folder near Admin desk. Once signed and completed it will be fax to the number provided. documented in this encounter [facility] 04-04-2025 History of Presen t illness [...] approval? Other issues: Plan for visit: - [place] ordered and scheduled in [facility] [place] visit in the summer? -can try to add on DEXA at that time - can get annual labs done when able (ordered) Fernando Zhang RD documented in this encounter [facility] 03-18-2025 Telephone encounter Note Medication: Pulmozyme Date Submitted: March 18, 2025 Prescribing Provider: Jennie Method of Submission: CoverMyMeds Outcome: TBD Outcome Date: TBD CALOS Stubbs [facility] 03-18-2025 Miscellaneous Notes Medication: Pulmozyme Date Submitted: March 18, 2025 Prescribing Provider: Jennie Method of Submission: CoverMyMeds Outcome: TBD Outcome Date: TBD CALOS Stubbs documented in this encounter [facility] 02-14-2025 Instructions Stephie Ramirez APRN.CNP - 02/14/2025 2:34 PM EDT Patient educated to have ophthalmology visits at least once a year. documented in this encounter [facility] 02-14-2025 Note HNO ID: [id number] Author: STEPHIE RAMIREZ APRN.CNP Service: ? Author [...] further kidney damage., 10/2022: prot/creat ratio in [facility], making appointment with nephrology, 07/2023: prot/creat ratio in [facility] Lipid Profile:10/2013: TC 111, HDL 42, LDL [...] results in care everywhere, 01/2020: labs in [facility], 07/2020; Alkaline Phosphatase 725 (45-117), ALT 77 (16-61), AST 163 (15-37), 12/2020: results in care everywhere., 03/2021: results In care everywhere, 12/2021: Alkaline Phosphatase 918 (38-113), bone percent 13.9%, liver percent 86.1 , 12/2022: liver function monitored by CF providers, 03/2023: in [facility], 08/2023: LFTS in [facility], 10/2023: LFTS in [facility], 03/2024: liver test in [facility], 10/2024: liver in [facility], 01/2025: liver in [facility] Dilated Eye Exam: Patient educated to have ophthalmology visits at least once a year. 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 08/2013: New patient visit for Cystic Fibrosis related Diabetes Previous diabetes related labs from [facility] and [facility] reviewed prior to today's office visit. [...] Elects no kristen (more content not included)... [facility] 02-14-2025 History of Presen t illness [...] results in care everywhere, 01/2020: labs in [facility], 07/2020; Alkaline Phosphatase 725 (45-117), ALT 77 (16-61), AST 163 (15-37), 12/2020: results in care everywhere., 03/2021: [facility], 12/2021: Alkaline Phosphatase 918 (38-113), bone percent 13.9%, liver percent 86.1 , 12/2022: liver function monitored by CF providers, 03/2023: in epic, 08/2023: LFTS in epic, 10/2023: LFTS in [facility], 03/2024: liver test in [facility], 10/2024: liver in [facility], 01/2025: liver in [facility] Dilated Eye Exam: Patient educated to have ophthalmology visits at least once a year. 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 08/2013: New patient visit for Cystic Fibrosis related Diabetes [facility] to [facility]'s office visit. 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 Blood-Glucose Meter,Continuous (DEXCOM G7 INTERNETWORKING TECHNICIAN) misc For monitoring sugars glucagon (BAQSIMI) 3 mg/actuation nasal spray Use 1 [place] in the nose as needed. May repeat [...] directed and REPLACE every 10 days Insulin [place], Disposable, (BD YARON 2ND GEN PEN NEEDLE) [...] which included preparing to see the patient, cyct-tm-ueur patient care, completing clinical documentation, obtaining and/or [...] E08.9 - HEMOGLOBIN A1C (POC) Stephie Ramirez APRN.TUNNEL WORKER documented in this encounter [facility] 02-09-2025 Instructions Sally Schneider APRN.CNP - [...] up with Dr Kilgore as scheduled at [place] on April 06. documented in this encounter [facility] 02-09-2025 History of Presen t illness Narrative PULM FUNCTION: Provider: Sally Schneider APRN.CNP Spirometry: 1 documented in this encounter [facility] 02-09-2025 History of Presen t illness [...] up with Dr Kilgore as scheduled at [place] on April 06. 1. CYSTIC FIBROSIS PULMONARY [...] ---Referral to ENT for surgical eval. Appt [phone]. 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 Burke France in 2019 for [...] done: ---Following with Dr. 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 Blood-Glucose Meter,Continuous (DEXCOM G7 INTERNETWORKING TECHNICIAN) misc For monitoring sugars glucagon (BAQSIMI) 3 mg/actuation nasal spray Use 1 [place] in the nose as needed. May repeat [...] recent labs LAST LAB RESULTS: ---Reviewed in [facility] CBC with diff: WBC 15.83 02/08/2025 RBC 3.17 02/08/2025 Hemoglobin 9.0 02/08/2025 Hematocrit 28.1 02/08/2025 MCV 88.6 02/08/2025 MCH 28.4 02/08/2025 MCHC 32.0 02/08/2025 RDW-CV 13.8 02/08/2025 Platelet Count 394 02/08/2025 MPV 8.7 02/08/2025 Neutrophils % 81.1 02/08/2025 Lymph% 7.5 02/08/2025 [place]% 9.5 02/08/2025 Eosin% 0.9 02/08/2025 Baso% 0.4 02/08/2025 Abs Neut (Segs + Bands) 12.84 02/08/2025 Abs [place] 1.51 02/08/2025 Abs Eosin 0.14 02/08/2025 Abs [...] 11/20/2023 6.4 12/24/2021 7.5 SPIROMETRY: Reviewed in [facility] MICROBIOLOGY: Reviewed MICROBIOLOGY SNAPSHOT Written and verbal health teaching given to patient, patient verbalizes understanding and agrees with treatment plan. I spent a total of 50 minutes on the date of the service which included preparing to see the patient, seyj-ev-chzq patient care, completing clinical documentation, performing a medically appropriate examination, ordering medications, tests, or procedures, independently interpreting results (not separately reported), communicating results to the patient/family/caregiver, and care coordination (not separately reported). Electronically Signed: Sally Schneider CNP February 08, 2025 documented in this encounter [facility] 02-07-2025 Telephone encounter Note Opened in error [facility] Work Phone: 02-07-2025 Miscellaneous Notes Opened in error documented in this encounter [facility] 02-07-2025 History of Presen t illness Narrative [facility] Subjective Jay Barber is a 29 year [...] Farrukh Gomes MD documented in this encounter [facility] 02-07-2025 History of Presen t illness [...] PATIENT PRESENTS WITH AN IMPLANTABLE OR ATTACHED PARTY PLAN SALESPERSON: No RADIOLOGY DEPARTMENT: General X-ray: Exam(s) Completed: Chest X-Ray PERIPHERAL IV DATA: Not applicable SIGNED BY: Juanito Day February 07, 2025 11:23 AM documented in this encounter [facility] 02-01-2025 History of Presen t illness [...] PATIENT PRESENTS WITH AN IMPLANTABLE OR ATTACHED PARTY PLAN SALESPERSON: No RADIOLOGY DEPARTMENT: General X-ray: Exam(s) Completed: Chest X-Ray PERIPHERAL IV DATA: Not applicable SIGNED BY: Juanito Day February 01, 2025 11:44 AM documented in this encounter [facility] 01-31-2025 Telephone encounter Note Updated patient that a CXR has also been ordered for him to complete. [facility] 01-31-2025 Miscellaneous Notes Updated patient that [...] any further instruction. documented in this encounter [facility] 01-31-2025 Telephone encounter Note Called and [...] Will notify providers for any further instruction. [facility] 01-05-2025 History of Presen t illness Narrative PULM FUNCTION: Provider: Jean Pierre Kilgore MD Spirometry: 1 documented in this encounter [facility] 01-05-2025 History of Presen t illness [...] labs Follow up with Dr Kilgore at [facility] in 3 months HISTORY OF PRESENT ILLNESS: Jay Barber is a 29 year old male, here for follow-up of Cystic Fibrosis Courses of oral abx since last visit:0 Courses of IV abx since last visit:0 Prednisone use since last visit: 0 ED visits since last visit: 0 Hospitalizations since last visit: 0 [employer]/Phone Messages since last visit: 10/11/24: nurse left message regarding lab work (told to hydrate, repeat labs); repeated on 10/12/24 and improved, but still slightly elevated 11/10/24: requesting Tripteaseb script INTERVAL HISTORY Has gradually smoldered since [...] infection with PsA, 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 Appt [phone]. 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 Burke France in 2019 for [...] done: ---Following with Dr. Francis Ramirez at [place] [employer] and [facility] OSTEOPOROSIS ---DEXA with annual visit (last done 2022, -2.5 to -3.1) Vitamin D 25 Hydroxy (ng/mL) Date Value 02/27/2024 32.4 ] Hemoglobin A1C Date Value Ref Range Status 02/03/2024 6.3 (H) 4.3 - 5.6 % Final Comment: [place] [employer] guidelines indicate that patients with HgbA1c in the range 5.7-6.4% are at increased risk for development of diabetes, and intervention by lifestyle modification may be beneficial. HgbA1c greater or equal to 6.5% is considered diagnostic of diabetes. Hemoglobin A1C (POCT) Date Value Ref Range Status 10/12/2024 6.3 (A) 4.3 - 5.6 % Final Comment: Location:[facility], [address], [address] Point of care (POC) Hemoglobin A1c (HGBA1C) [...] specific diabetes management situations: The POC device manager culinary provides a normal range of 4.2% to 6.5% for the HGBA1C POC test. However, the [place] [employer] guidelines indicate that patients with [...] (A) 4.3 - 5.6 % Final Comment: Location:[facility], [address] [place] [address], [facility] Point of care (POC) Hemoglobin A1c (HGBA1C) [...] specific diabetes management situations: The POC device manager culinary provides a normal range of 4.2% to 6.5% for the HGBA1C POC test. However, the [place] [employer] guidelines indicate that patients with [...] (A) 4.3 - 5.6 % Final Comment: [facility] [address] [place] [address], [id number] Point of care (POC) Hemoglobin A1c (HGBA1C) [...] specific diabetes management situations: The POC device manager culinary provides a normal range of 4.2% to 6.5% for the HGBA1C POC test. However, the [place] [employer] guidelines indicate that patients with [...] 6.4 4.2 - 5.6 % Final Comment: [facility], [address] [place] [address], [address] Point of care (POC) Hemoglobin A1c (HGBA1C) [...] specific diabetes management situations: The POC device manager culinary provides a normal range of 4.2% to 6.5% for the HGBA1C POC test. 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 Blood-Glucose Meter,Continuous (DEXCOM G7 INTERNETWORKING TECHNICIAN) [facility] For monitoring sugars glucagon (BAQSIMI) 3 mg/actuation nasal spray Use 1 [place] in the nose as needed. May repeat [...] imaging results. LAST LAB RESULTS: ---Reviewed in [facility] CBC with diff: WBC 7.07 10/12/2024 RBC 3.20 10/12/2024 Hemoglobin 9.7 10/12/2024 Hematocrit 30.7 10/12/2024 MCV 95.9 10/12/2024 MCH 30.3 10/12/2024 MCHC 31.6 10/12/2024 RDW-CV 13.2 10/12/2024 Platelet Count 172 10/12/2024 MPV 10.3 10/12/2024 Neutrophils % 57.0 10/12/2024 Lymph% 21.6 10/12/2024 [place]% 10.5 10/12/2024 Eosin% 9.3 10/12/2024 Baso% 1.3 10/12/2024 Abs Neut (Segs + Bands) 4.03 10/12/2024 Abs [place] 0.74 10/12/2024 Abs Eosin 0.66 10/12/2024 Abs [...] (A) 4.3 - 5.6 % Final Comment: Location:[facility], [address] [place] [address], [facility] Point of care (POC) Hemoglobin A1c (HGBA1C) [...] specific diabetes management situations: The POC device manager culinary provides a normal range of 4.2% to 6.5% for the HGBA1C POC test. However, the [place] [employer] guidelines indicate that patients with [...] red blood cell lifespan. SPIROMETRY: Reviewed in [facility] SPIROMETRY BASELINE ONLY ([id number]) - ordered on 10/06/24 ID: [id number] Name: JAY BARBER Visit Date: 01/05/2025 Doctor: Mechanical Estimator: Herber Montes Age: 29 Date of : [...] FEF75 (L/sec) 1.42 0.74 2.55 0.11 8 OUL04-42 (L/sec) 3.62 2.23 5.35 0.20 5 FEF Max (L/sec) 8.48 6.69 10.27 3.74 44 FIVC (L) 2.32 FIF50 (L/sec) 2.58 FIF Max (L/sec) 3.12 Time (sec) 15.29 MACIEL (L) 0.02 Time To FEF Max (sec) 0.05 SPIROMETRY BASELINE ONLY ([id number]) - ordered on 09/09/24 ID: [id number] Name: JAY BARBER Race: White Ht: 61.61 [...] 2.28 FEF50/FIF50 0.11 90-100 FIVC (L) 2.13 ASS12-93 (L/sec) 0.20 2.24 3.63 5.36 5 Time (sec) 14.60 FET PEF (sec) 0.04 MACIEL (L) 0.02 Vol Extrap % (%) 1 SPIROMETRY BASELINE ONLY - 09/09/24 ID: [id number] Name: JAY BARBER Race: White Ht: 61.61 [...] 2.14 FEF50/FIF50 0.09 90-100 FIVC (L) 2.01 SMO51-71 (L/sec) 0.17 2.24 3.63 5.36 4 Time [...] with treatment plan. Return to clinic at [place] in 12 weeks, with spirometry (spirometry baseline). I spent a total of 65 minutes on the date of the service which included preparing to see the patient, blab-an-ekla patient care, completing clinical documentation, obtaining and/or reviewing separately obtained history, performing a medically appropriate examination, counseling and educating the patient/family/caregiver, and ordering medications, tests, or procedures. Electronically Signed: January 05, 2025 documented in this encounter [facility] 12-30-2024 History of Presen t illness [...] OGTT/CFRD: +CFRD -> Follows with Tyler Ramirez, TUNNEL WORKER-last OV 10/12/24 Dexa: NEEDS - Last completed [...] visit: - S[place] ordered and scheduled in [facility] [place] visit in the summer? -can try to add on DEXA at that time documented in this encounter [facility] 11-16-2024 Telephone encounter Note Medication: Trikafta Date Submitted: November 16, 2024 Prescribing Provider: Sally Schneider CNP Method of Submission: Covermymeds Outcome: TBD Outcome Date: TBD Fernando Zhang RD [facility] Work Phone: 11-16-2024 Miscellaneous Notes Medication: Trikafta Date Submitted: November 16, 2024 Prescribing Provider: Sally Schneider CNP Method of Submission: Covermymeds Outcome: TBD Outcome Date: TBD Fernando Zhang RD documented in this encounter [facility] 10-14-2024 Telephone encounter Note Done spoke with the patient.Patient verbalized understanding. Crystal Bridges LPN October 14, 2024 2:[address] [facility] 10-14-2024 Miscellaneous Notes Done spoke with the patient.Patient verbalized understanding. Crystal Bridges LPN October 14, 2024 2:00 PM 10/2024: TSH 1.81 (0.27-4.2 uIU/mL), Thyroid lab ok Please call patient, review message, then sign encounter. documented in this encounter [facility] 10-14-2024 Telephone encounter Note 10/2024: TSH 1.81 (0.27-4.2 uIU/mL), Thyroid lab ok Please call patient, review message, then sign encounter. [facility] 10-12-2024 History of Presen t illness [...] appointment with nephrology, 07/2023: prot/creat ratio in [facility] Lipid Profile:10/2013: TC 111, HDL 42, LDL [...] results in care everywhere, 01/2020: labs in [facility], 07/2020; Alkaline Phosphatase 725 (45-117), ALT 77 (16-61), AST 163 (15-37), 12/2020: results in care everywhere., 03/2021: [facility], 12/2021: Alkaline Phosphatase 918 (38-113), bone percent 13.9%, liver percent 86.1 , 12/2022: liver function monitored by CF providers, 03/2023: in [facility], 08/2023: LFTS in [facility], 10/2023: LFTS in [facility], 03/2024: liver test in [facility], 10/2024: liver in [facility] Dilated Eye Exam: Patient educated to have ophthalmology visits at least once a year. 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 08/2013: New patient visit for Cystic Fibrosis related Diabetes 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 Blood-Glucose Meter,Continuous (DEXCOM G7 INTERNETWORKING TECHNICIAN) [facility] [place] monitoring sugars glucagon (BAQSIMI) 3 mg/actuation nasal spray Use 1 [place] in the nose as needed. May repeat [...] 277.09, 249.00, ICD10: E84.8, E08.9 Stephie Ramirez APRN.TUNNEL WORKER documented in this encounter [facility] 10-12-2024 Note HNO ID: [id number] Author: STEPHIE RAMIREZ APRN.TUNNEL WORKER Service: ? Author Type: Nurse Practitioner Type: [...] further kidney damage., 10/2022: prot/creat ratio in [facility], making appointment with nephrology, 07/2023: prot/creat ratio in [facility] Lipid Profile:10/2013: TC 111, HDL 42, LDL [...] results in care everywhere, 01/2020: labs in [facility], 07/2020; Alkaline Phosphatase 725 (45-117), ALT 77 (16-61), AST 163 (15-37), 12/2020: results in care everywhere., 03/2021: results In care everywhere, 12/2021: Alkaline Phosphatase 918 (38-113), bone percent 13.9%, liver percent 86.1 , 12/2022: liver function monitored by CF providers, 03/2023: in [facility], 08/2023: LFTS in [facility], 10/2023: LFTS in [facility], 03/2024: liver test in epic, 10/2024: liver in [facility] Dilated Eye Exam: Patient educated to have ophthalmology visits at least once a year. 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 08/2013: New patient visit for Cystic Fibrosis related Diabetes [facility] [facility] reviewed prior to today's office [...] this time-we discussed (more content not included)... [facility] 10-11-2024 Telephone encounter Note Left message for patient explaining his kidney function and potassium were elevated on lab results from last appointment on 10/06/24. Explained the need to hydrate and requested he repeat CMP again today- depending on results, may need to take kayexalate. [facility] Work Phone: 10-11-2024 Miscellaneous Notes Left message for patient explaining his kidney function and potassium were elevated on lab results from last appointment on 10/06/24. Explained the need to hydrate and requested he repeat CMP again today- depending on results, may need to take kayexalate. documented in this encounter [facility] 10-06-2024 History of Presen t illness [...] visit ----Follow up with Dr Kilgore at [facility] on FriJan 05 with PFT 1. CYSTIC [...] ---Referral to ENT for surgical eval. Appt [phone]. 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 Burke France in 2019 for [...] ordered ---Following with Dr. Francis Ramirez at [facility] ---DEXA with ANNUAL SCREENING: ANNUAL LABS: Done [...] COVID-19 original vaccine, age 12+ yr, monovalent (Shopdeca - PURPLE TOP) 12/24/2020 01/21/2021 12/05/2021 COVID-19 vaccine, age 12+ yr, bivalent (Compliance [id number]) 12/04/2022 Haemophilus influenzae b (HbOC) vaccine, 4-dose [...] vaccine, quadrivalent, unspecified formulation 05/27/2012 novel influenza (O4L6-79) vaccine, PF 10/19/2009 pneumococcal (PCV7) vaccine, 7 [...] (HCC) History of transfusion Hypertension Liver disease senior care (current) use of insulin (HCC) Transfusion history [...] directed and REPLACE every 10 days Insulin [place], Disposable, (BD YARON 2ND GEN PEN NEEDLE) [...] times a week. Blood-Glucose Meter,Continuous (DEXCOM G7 INTERNETWORKING TECHNICIAN) misc For monitoring sugars glucagon (BAQSIMI) 3 mg/actuation nasal spray Use 1 [place] in the nose as needed. May repeat [...] recent labs LAST LAB RESULTS: ---Reviewed in [facility] CBC with diff: WBC 5.22 09/13/2024 RBC 2.91 09/13/2024 Hemoglobin 8.9 09/13/2024 Hematocrit 27.1 09/13/2024 MCV 93.1 09/13/2024 MCH 30.6 09/13/2024 MCHC 32.8 09/13/2024 RDW-CV 15.6 09/13/2024 Platelet Count 214 09/13/2024 MPV 9.9 09/13/2024 Neutrophils % 40.8 09/13/2024 Lymph% 28.4 09/13/2024 [place]% 11.3 09/13/2024 Eosin% 17.4 09/13/2024 Baso% 1.9 09/13/2024 Abs Neut (Segs + Bands) 2.13 09/13/2024 Abs [place] 0.59 09/13/2024 Abs Eosin 0.91 09/13/2024 Abs [...] 12/24/2021 7.5 09/10/2021 7.4 SPIROMETRY: Reviewed in [facility] MICROBIOLOGY: Reviewed MICROBIOLOGY SNAPSHOT Written and verbal health teaching given to patient, patient verbalizes understanding and agrees with treatment plan. I spent a total of 45 minutes on the date of the service which included preparing to see the patient, [id number] patient care, completing clinical documentation, performing a medically appropriate examination, ordering medications, tests, or procedures, independently interpreting results (not separately reported), communicating results to the patient/family/caregiver, and care coordination (not separately reported). Electronically Signed: Myrick CNP October 06, 2024 documented in this encounter [facility] 10-06-2024 History of Presen t illness Narrative PULM FUNCTION: Provider: Sally Schneider APRN.CNP Spirometry: 1 documented in this encounter [facility] 10-04-2024 History of Presen t illness [...] stock Other issues: Plan for visit: - [place] ordered and scheduled - follow up after completing home IV abx - Needs to complete DEXA (order in, add on to October visit, message sent to scheduling) documented in this encounter [facility] 09-28-2024 Telephone encounter Note Pharmacy calling [...] and disregard albuterol nebs Fernando Zhang RD [facility] Work Phone: 09-28-2024 Miscellaneous Notes Pharmacy [...] Fernando Zhang RD documented in this encounter [facility] 09-27-2024 Telephone encounter Note Spoke with patient over the phone and confirmed was prescriptions he needed. Sent to Dr Pinon to fill Fernando Zhang RD [facility] Work Phone: 09-27-2024 Miscellaneous Notes Spoke with patient over the phone and confirmed was prescriptions he needed. Sent to Dr Turowski to fill Fernando Zhang RD documented in this encounter [facility] 09-16-2024 Note Addended by: SALLY SCHNEIDER on: 09/16/2024 10:27 AM Modules accepted: Orders [facility] 09-16-2024 Miscellaneous Notes Addended by: SALLY SCHENIDER on: 09/16/2024 10:27 AM Modules accepted: Orders Verification that pts PICC line was pulled at [facility] today. Pt noted that he did take a single dose of the kayexalate yesterday. Communicated this with provider. Provider requested BMP today. SW notified pt and team. documented in this encounter [facility] 09-15-2024 Telephone encounter Note Verification that pts PICC line was pulled at [facility] today. Pt noted that he did take a single dose of the kayexalate yesterday. Communicated this with provider. Provider requested BMP today. SW notified pt and team. [facility] 09-15-2024 Telephone encounter Note Images from the original note were not included. [facility] 09-15-2024 Miscellaneous Notes Images from the original note were not included. Images from the original note were not included. documented in this encounter [facility] 09-15-2024 Telephone encounter Note Images from the original note were not included. [facility] 09-10-2024 Telephone encounter Note Reviewed pt's most recent lab results with him over the phone. Instructed him to increase water intake over the weekend as his BUN/Orange Picker are somewhat elevated. Pt agreeable. Patient has not yet heard back from [facility] regarding PICC removal - will re-fax orders to them again today. [facility] Work Phone: 09-10-2024 Miscellaneous Notes Reviewed pt's most recent lab results with him over the phone. Instructed him to increase water intake over the weekend as his BUN/Orange Picker are somewhat elevated. Pt agreeable. Patient has not yet heard back from [facility] regarding PICC removal - will re-fax orders to them again today. documented in this encounter [facility] 09-09-2024 History of Presen t illness [...] monitoring is being done and -------Labs in [facility] ---No significant changes in creatinine, LFTs, [...] Friday ----We will arrange PICC removal at [facility] on 09/15 ----Refill sent for kayexelate as [...] ---Referral to ENT for surgical eval. Appt [phone]. 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 Burke France in 2019 for [...] ordered ---Following with Dr. Francis Ramirez at [facility] ---DEXA with CHIEF COMPLAINT: Cystic Fibrosis HISTORY OF PRESENT ILLNESS: Jay Barber is a 29 year old male, here for follow-up of Cystic Fibrosis Home IV abx therapy; starting to feel better. His appetite and fatigue has started to improve theh last couple days. Cough is stretcher and drier. Rare sputum production. Dyspnea with exertion, [...] (HCC) History of transfusion Hypertension Liver disease senior care (current) use of insulin (HCC) Transfusion history Type 1 diabetes mellitus with hyperglycemia (HCC) PAST SURGICAL HISTORY Procedure Laterality Date PAST SURGICAL HISTORY OF splenal renal shunt to treat portal hypertension PICC LINE INSERT/CONSULT 03/08/2023 PICC LINE INSERT/CONSULT 02/03/2024 PICC LINE INSERTION (PICC TEAM) (MA) 08/19/2024 FAMILY HISTORY Problem Relation Age of [...] directed and REPLACE every 10 days Insulin [place], Disposable, (BD YARON 2ND GEN PEN NEEDLE) [...] times a week. Blood-Glucose Meter,Continuous (DEXCOM G7 INTERNETWORKING TECHNICIAN) misc For monitoring sugars glucagon (BAQSIMI) 3 mg/actuation nasal spray Use 1 [place] in the nose as needed. May repeat [...] recent labs LAST LAB RESULTS: ---Reviewed in [facility] Glucose (mg/dL) Date Value 09/08/2024 112 [...] Neutrophils % 42.9 09/07/2024 Lymph% 31.7 09/07/2024 [place]% 11.5 09/07/2024 Eosin% 11.1 09/07/2024 Baso% 2.6 09/07/2024 Abs Neut (Segs + Bands) 2.68 09/07/2024 Abs [place] 0.72 09/07/2024 Abs Eosin 0.69 09/07/2024 Abs Baso 0.16 09/07/2024 SPIROMETRY: Reviewed in [facility] SPIROMETRY BASELINE ONLY ([id number]) - ordered on 09/09/24 No textual results for order. SPIROMETRY BASELINE ONLY ([id number]) - ordered on 08/18/24 No textual results for order. SPIROMETRY BASELINE ONLY ([id number]) - ordered on 05/05/24 No textual results for order. MICROBIOLOGY: Reviewed MICROBIOLOGY SNAPSHOT Written and verbal health teaching given to patient, patient verbalizes understanding and agrees with treatment plan. Electronically Signed: Sally Schneider CNP September 09, 2024 documented in this encounter [facility] 09-09-2024 History of Presen t illness Narrative PULM FUNCTION: Provider: Sally Schneider APRN.CNP Spirometry: 1 System: [facility] - [id number] documented in this encounter [facility] 09-03-2024 History of Presen t illness [...] OGTT/CFRD: +CFRD -> Follows with Tyler Ramirez, TUNNEL WORKER-last OV 07/06/24 Dexa: NEEDS - Last completed [...] for additional kayexalate -> 08/31/24: admitted to [facility] and given K cocktail (kayexalate, calcium gluconate, [...] this appt ? documented in this encounter [facility] 09-03-2024 Telephone encounter Note Imported external medical records from [facility] (dated 09/03/24). Please allow time delay for documents to appear in [employer] (Scanned Documents Tab). [facility] 09-03-2024 Miscellaneous Notes Imported external medical records from [facility] (dated 09/03/24). Please allow time delay for documents to appear in Epic (Scanned Documents Tab). documented in this encounter [facility] 09-02-2024 Telephone encounter Note Patient called [...] understands and agreeable to plan. Will have Auditor/Quality request pt's medical records from [facility] and assist with getting him scheduled for next , 09/09/24. Called [facility] and extended his IV medications- they will be delivered to patient today. [facility] 09-02-2024 Miscellaneous Notes Patient called back [...] understands and agreeable to plan. Will have Auditor/Quality request pt's medical records from [facility] and assist with getting him scheduled for next , 09/09/24. Called [facility] pharmacy and extended his IV medications- they will be delivered to patient today. documented in this encounter [facility] 09-02-2024 Note [facility] Medical Records Department [address] [place] [address] Discharge Summary 09/02/24 1014 MR#: [id number] Acct: [id number] Name: JAY BARBER Rep #: [id number] : 1995 29 From: Anahi Wilder MD PCP: Care Physician,No Primary Status:DIS IN Location: [place] [id number] Providers Date of Admission: 09/01/24 Date of [...] for about 2 weeks. Follows up at [facility]. Has a PICC line in place. * [...] tablets 2 ea PO DAILY CF 11/14/19 qtjtfp-ckljytpa-vltyadz 36,000-114,000-180,000 unit capsule,delay rel 2 - 3 [...] PRN PRN wheezing 08/31/24 blood sugar diagnostic (Indicative SoftwareTouch Verio test strips) 08/31/24 blood-glucose sensor (SOAMAI G7 Sensor device) 08/31/24 carvedilol 25 mg [...] for hyperkalemia. He usually followed up at [facility] for his cystic fibrosis and was being [...] course was complicate (more content not included)... [facility] 09-01-2024 Telephone encounter Note I spoke to Sydni from [facility] and I advised her that the patient does need another fill of this medication. She stated that she is still getting a denied claim. I provided her with the approved prior authorization number and she was going to call [employer] to see what needs to be done on the pharmacies end to get the claim to be approved. She stated she would call me back if she has any further problems. [facility] 09-01-2024 Miscellaneous Notes I spoke to Sydni from [facility] and I advised her that the patient does need another fill of this medication. She stated that she is still getting a denied claim. I provided her with the approved prior authorization number and she was going to call [employer] to see what needs to be done on the pharmacies end to get the claim to be approved. She stated she would call me back if she has any further problems. Sydni from [facility] called to confirm if the pt needs the second order of Sodium polystyrene sulfonate and if he does it requires a PA. She stated the pt picked up the first order already. PH: [phone] documented in this encounter [facility] 09-01-2024 Telephone encounter Note Sydni from [facility] called to confirm if the pt needs the second order of Sodium polystyrene sulfonate and if he does it requires a PA. She stated the pt picked up the first order already. PH: [phone] [facility] 08-31-2024 Telephone encounter Note Pt is currently in ER and the ER doc (Dr. Bal) there wants to talk about pt's CF [facility] 08-31-2024 Miscellaneous Notes Pt is currently in ER and the ER doc (Dr. Bal) there wants to talk about pt's CF documented in this encounter [facility] 08-31-2024 Telephone encounter Note Called patient and instructed him to go to the ED since we still have not received approval for the kayexalate. Explained to him that he will need to be on an ECG monitor and will need to receive kayexalate while he is there. Called [facility]'s ED and notified them of pt's plan to come in. [facility] Work Phone: 08-31-2024 Miscellaneous Notes Called patient and instructed him to go to the ED since we still have not received approval for the kayexalate. Explained to him that he will need to be on an ECG monitor and will need to receive kayexalate while he is there. Called [facility]'s ED and notified them of pt's plan to come in. New prior authorization needed - the prior auth completed yesterday only allowed for a single dose a month. information systems coordinator submitted new prior auth around 11 [...] ordered at this time. Instructed patient to orange picker as soon as possible and that [...] read back to Tamela Wray. Abigail Schneider TUNNEL WORKER was notified of the result at 0920 AM. Ed Roberts RN documented in this encounter [facility] 08-31-2024 Telephone encounter Note New prior authorization needed - the prior auth completed yesterday only allowed for a single dose a month. information systems coordinator submitted new prior auth around 11 am this morning. Let patient know that if we do not receive approval within the next hour, he will need to go to the ED. [facility] 08-31-2024 Telephone encounter Note Spoke with patient [...] ordered at this time. Instructed patient to orange picker as soon as possible and that he must do repeat CMP again today 6 hours after taking it. If potassium level does not improve, patient understands he needs to go to the emergency room. [facility] 08-31-2024 Telephone encounter Note Patient s identity has been confirmed by name and birthdate: Yes Call received from lab at 0918 AM to report a critical value for Potassium of 6.4. Verified and read back to Tamela Wray. Abigail Schneider TUNNEL WORKER was notified of the result at 0920 AM. Ed Roberts RN [facility] 08-30-2024 Telephone encounter Note Sent patient message and left voicemail explaining to hold off on taking the Kayexalate until he completes his lab work today. Will first reassess his potassium level before having him take the Kayexalate. [facility] Work Phone: 08-30-2024 Miscellaneous Notes Sent patient message and left voicemail explaining to hold off on taking the Kayexalate until he completes his lab work today. Will first reassess his potassium level before having him take the Kayexalate. documented in this encounter [facility] 08-27-2024 Telephone encounter Note Called and spoke with patient regarding hyperkalemia (6.1) resulted on pt's CMP this morning . Explained that kayexalate will be sent to his preferred pharmacy and needs to be taken as soon as able and then will need a repeat BMP 6 hour afterwards. Pt agreeable to plan. [facility] Work Phone: 08-27-2024 Miscellaneous Notes Called and spoke with patient regarding hyperkalemia (6.1) resulted on pt's CMP this morning . Explained that kayexalate will be sent to his preferred pharmacy and needs to be taken as soon as able and then will need a repeat BMP 6 hour afterwards. Pt agreeable to plan. documented in this encounter [facility] 08-25-2024 Telephone encounter Note Rep called needing clarification regarding pt's vancomycin IV that Dr. Schneider rx'ed. He would like a clinical staff member to call him back. [facility] 08-25-2024 Miscellaneous Notes Rep called needing clarification regarding pt's vancomycin IV that Dr. Schneider rx'ed. He would like a clinical staff member to call him back. documented in this encounter [facility] 08-25-2024 Telephone encounter Note 3:15 PM [...] another vanco level order for Friday in [facility] SW spoke with pt, who had already spoken to [facility] about the plan. Pt relayed plan to this for verification. Pt to obtain labs on Friday with vanco level. 8:45 am: Sent pt text message re: time of vancomycin dosing before 8:30 am lab draw yesterday. Vanco dose at 8 pm Friday prior to Mon am lab draw. Notified TUNNEL WORKER. Pt asking about saline due to feeling dry. Pt aware and expecting delivery of meds tomorrow. TUNNEL WORKER ordered and orders were faxed to [email or web address] [employer] [phone]. [facility] 08-25-2024 Miscellaneous Notes 3:15 PM From Sally Schneider, I talked to the pharmacist about Jay's vanco level. We are lowering his dose to 300mg every 12 hours Can you please let him know and he will need to go and get another vanco level drawn on Friday before he gets Friday morning dose I put another vanco level order for Friday in [facility] SW spoke with pt, who had already spoken to [facility] about the plan. Pt relayed plan to this for verification. Pt to obtain labs on Friday with vanco level. 8:45 am: Sent pt text message re: time of vancomycin dosing before 8:30 am lab draw yesterday. Vanco dose at 8 pm Friday prior to Mon am lab draw. Notified TUNNEL WORKER. Pt asking about saline due to feeling dry. Pt aware and expecting delivery of meds tomorrow. TUNNEL WORKER ordered and orders were faxed to [facility] [phone]. documented in this encounter [facility] 08-20-2024 History of Presen t illness Narrative CF Pre-Clinic Checklist PRE-TRANSPLANT Last CF clinic visit date: 08/18/24 [facility] at [place] [facility]: b. Cepacia complex; MRSA Lab Results [...] OGTT/CFRD: +CFRD -> Follows with Tyler Ramirez, TUNNEL WORKER-last OV 07/06/24 Dexa: Completed on 09/24/23 -> Lowest T-score is -3.1 in left femoral neck (repeat in August 2024 at [facility])-order is in. Scheduled for [place] 09/02 T/Z = > -1.0 - every [...] 24%, 10 lb weight loss -PICC at [facility] tomorrow 7:45am (map given to [facility] entrance for PICC placement, order confirmed) -IV Vancomycin 500mg q12, Meropenem 1gram q12 x 14 days; IV diphenhydramine 50mg q12, 30' before IV vancomycin -CMP, CBC, Mg labs today, then qMon & Thurs -Vanc trough Thursday 08/23 -meds via [facility] -PICC care via -[facility] -F/U Adult CF Center at [facility]-Main Follow up visit in 7-10 days -See abx abstract 08/20/24 Plan for visit: - home IV follow up - PFT ordered and scheduled Fernando Zhang RD documented in this encounter [facility] 08-20-2024 History of Presen t illness [...] PICC Team while admitted Home Care Agency: personnel and payroll technician: OP clinic: [facility] for labs and line care [facility]fusion Pharm[facility] Agency: personnel and payroll technician: [facility] Fax: Have we called HC agency to follow up orders/additional needs? Did we need to contact HC Liaison (Teresa Medina or Mckenna Masterson): Yes or No. Issues: No Labs ordered: CBC w/ Diff CMP Mag Pre-dose Vancomycin Labs once or twice weekly: Twice Weekly Days: Mondays and Patient phone number [phone] Were they contacted? Yes Clinic follow-up appointment date: TBD documented in this encounter [facility] 08-19-2024 Note Addended by: ZAIDA SANTOS on: 08/19/2024 11:25 AM Modules accepted: Orders [facility] 08-19-2024 Miscellaneous Notes Addended by: ZAIDA SANTOS on: 08/19/2024 11:25 AM Modules accepted: Orders Nataliya with [facility] called to request signed orders. They have the orders but they are not signed. Requests signed orders. Orders and pertinent clinical information faxed to [facility] for PICC placement yesterday. Spoke with patient this morning- PICC was placed as planned. IV abx orders and pertinent clinical information also faxed to [facility] this morning at 0830. Requested patient reach out to this office once they've confirmed SOC/antibiotic delivery with him. documented in this encounter [facility] 08-19-2024 Telephone encounter Note Nataliya with [facility] called to request signed orders. They have the orders but they are not signed. Requests signed orders. [facility] 08-19-2024 Telephone encounter Note Orders and pertinent clinical information faxed to [facility] for PICC placement yesterday. Spoke with patient this morning- PICC was placed as planned. IV abx orders and pertinent clinical information also faxed to [facility] this morning at 0830. Requested patient reach out to this office once they've confirmed SOC/antibiotic delivery with him. [facility] 08-19-2024 Note HNO ID: [id number] Author: DANIEL BARONE RN Service: ? Author Type: Registered Nurse Type: Procedures Filed: 08/19/2024 08:22 Note Text: PICC NURSE INSERTION NOTE DATE OF PROCEDURE: August 19, 2024 TIME OF PROCEDURE: 0750 ORDERING PHYSICIAN: Dunia INFORMED CONSENT: Obtained per hospital policy. INDICATION FOR LINE PLACEMENT: IV access COPAT CONDITION OF LINE PLACEMENT: Sterile PRIMARY PROCEDURALIST: Orquidea Ochoa RN CIRCUIT DESIGNER: Daniel Barone RN PRE-PROCEDURE REVIEW ALLERGIES Allergen [...] Barone RN CATHETER PLACEMENT Brand: Bard Lot: [id number] Number of Lumens: 1 Type of PICC: Power Injectable PICC Lumen Size: 4 [place]se PLACEMENT TECHNIQUE Lidocaine: Yes, Lidocaine 1% Volume [...] Given to patient QUESTIONS or PROBLEMS: Call [phone] SIGNATURE: Daniel Barone RN PATIENT NAME: Jay Barber DATE: August 19, 2024 TIME: 8:08 AM PAGER/CONTACT PHONE: [facility] 08-19-2024 Procedure note Associated Ord er(s): IR VASCULAR ACCESS TEAM PICC INSERTION RADIO Procedure(s): PICC LINE INSERTION (PICC TEAM) (AK) PICC NURSE INSERTION NOTE DATE OF PROCEDURE: August 19, 2024 TIME OF PROCEDURE: 0750 ORDERING PHYSICIAN: Dunia INFORMED CONSENT: Obtained per hospital policy. INDICATION FOR LINE PLACEMENT: IV access COPAT CONDITION OF LINE PLACEMENT: Sterile PRIMARY PROCEDURALIST: Orquidea Ochoa RN CIRCUIT DESIGNER: Daniel Barone RN PRE-PROCEDURE REVIEW ALLERGIES Allergen [...] Barone RN CATHETER PLACEMENT Brand: Bard Lot: [id number] Number of Lumens: 1 Type of PICC: Power Injectable PICC Lumen Size: 4 [place]se PLACEMENT TECHNIQUE Lidocaine: Yes, Lidocaine 1% Volume [...] Given to patient QUESTIONS or PROBLEMS: Call [phone] SIGNATURE: Daniel Barone RN PATIENT NAME: Jay Barber DATE: August 19, 2024 TIME: 8:08 AM PAGER/CONTACT PHONE: [facility] 08-19-2024 Procedure note Associated Ord er(s): IR VASCULAR ACCESS TEAM PICC INSERTION RADIO Procedure(s): PICC LINE INSERTION (PICC TEAM) (AK) PICC NURSE INSERTION NOTE DATE OF PROCEDURE: August 19, 2024 TIME OF PROCEDURE: 0750 ORDERING PHYSICIAN: Dunia INFORMED CONSENT: Obtained per hospital policy. INDICATION FOR LINE PLACEMENT: IV access COPAT CONDITION OF LINE PLACEMENT: Sterile PRIMARY PROCEDURALIST: Orquidea Ochoa RN CIRCUIT DESIGNER: Daniel Barone RN PRE-PROCEDURE REVIEW ALLERGIES Allergen [...] applicable. Daniel Barone RN CATHETER PLACEMENT Brand: afterBOT Lot: [id number] Number of Lumens: 1 Type of PICC: Power Injectable PICC Lumen Size: 4 [place]se PLACEMENT TECHNIQUE Lidocaine: Yes, Lidocaine 1% Volume [...] Given to patient QUESTIONS or PROBLEMS: Call [phone] SIGNATURE: Daniel Barone RN PATIENT NAME: Jay Barber DATE: August 19, 2024 TIME: 8:08 AM PAGER/CONTACT PHONE: documented in this encounter [facility] 08-19-2024 Note HNO ID: [id number] Author: DANIEL BARONE RN Service: ? Author [...] Primary Care SUPPLEMENTAL MATERIAL: PICC Line brochure [facility] 08-19-2024 History of Presen t illness [...] PICC Line brochure documented in this encounter [facility] 08-18-2024 History of Presen t illness [...] 24%, 10 lb weight loss -PICC at [facility] tomorrow 7:45am (map given to [facility] Heart & Vascular entrance for PICC placement, order confirmed) -IV Vancomycin 500mg q12, Meropenem 1gram q12 x 14 days; IV diphenhydramine 50mg q12, 30' before IV vancomycin -CMP, CBC, Mg labs today, then qMon & Thurs -Vanc trough Thursday 08/23 -meds via [facility] -PICC care via -[facility] -F/U Adult [facility] Center at [facility]-Main Follow up visit in [...] visit: 0 Hospitalizations since last visit: 0 [employer]/Phone Messages since last visit: 07/19/24-f/u with GI-PLAN [...] forward clinic note from today to patient's weigher bulker, regarding optimal approach for liver biopsy (US guided vs. Transjugular) as patient has concerns that if he were to be intubated, he may have a diffucult extubation 07/19/24-pt contacted [place] [facility] to obtain info about their [...] (H) 4.3 - 5.6 % Final Comment: [place] [employer] guidelines indicate that patients with HgbA1c in the range 5.7-6.4% are at increased risk for development of diabetes, and intervention by lifestyle modification may be beneficial. HgbA1c greater or equal to 6.5% is considered diagnostic of diabetes. 07/03/2023 6.9 (H) 4.3 - 5.6 % Final Comment: [place] [employer] guidelines indicate that patients with HgbA1c in the range 5.7-6.4% are at increased risk for development of diabetes, and intervention by lifestyle modification may be beneficial. HgbA1c greater or equal to 6.5% is considered diagnostic of diabetes. Hemoglobin A1C (POCT) Date Value Ref Range Status 07/06/2024 6.2 (A) 4.3 - 5.6 % Final Comment: Location:[facility], [address] [place] [address], [facility] Point of care (POC) Hemoglobin A1c (HGBA1C) [...] specific diabetes management situations: The POC device manager culinary provides a normal range of 4.2% to 6.5% for the HGBA1C POC test. However, the [place] Diabetes [employer] guidelines indicate that patients with [...] (A) 4.3 - 5.6 % Final Comment: [facility], [address] [place] [address] Point of care (POC) Hemoglobin A1c (HGBA1C) [...] specific diabetes management situations: The POC device manager culinary provides a normal range of 4.2% to 6.5% for the HGBA1C POC test. However, the [place] Diabetes [employer] guidelines indicate that patients with [...] 6.4 4.2 - 5.6 % Final Comment: Location:[facility] [place], [address] [place], [place] [id number] Point of care (POC) Hemoglobin A1c (HGBA1C) [...] specific diabetes management situations: The POC device manager culinary provides a normal range of 4.2% to 6.5% for the HGBA1C POC test. However, the [place] [employer] guidelines indicate that patients with [...] femoral neck (repeat in August 2024 at [place] [facility])-order is in. 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 Blood-Glucose Meter,Continuous (DEXCOM G7 INTERNETWORKING TECHNICIAN) [facility] [place] sugars glucagon (BAQSIMI) 3 mg/actuation nasal spray Use 1 [place] in the nose as needed. May repeat [...] imaging results. LAST LAB RESULTS: ---Reviewed in [facility] CBC with diff: WBC 5.68 03/17/2024 RBC 2.57 03/17/2024 Hemoglobin 7.4 03/17/2024 Hematocrit 22.7 03/17/2024 MCV 88.3 03/17/2024 MCH 28.8 03/17/2024 MCHC 32.6 03/17/2024 RDW-CV 13.9 03/17/2024 Platelet Count 147 03/17/2024 MPV 9.9 03/17/2024 Neutrophils % 49.9 03/17/2024 Lymph% 27.6 03/17/2024 [place]% 7.4 03/17/2024 Eosin% 13.7 03/17/2024 Baso% 1.2 03/17/2024 Abs Neut (Segs + Bands) 2.83 03/17/2024 Abs [place] 0.42 03/17/2024 Abs Eosin 0.78 03/17/2024 Abs [...] (A) 4.3 - 5.6 % Final Comment: Location:[facility], [address] [place] [address], [facility] Point of care (POC) Hemoglobin A1c (HGBA1C) [...] specific diabetes management situations: The POC device manager culinary provides a normal range of 4.2% to 6.5% for the HGBA1C POC test. However, the [place] Diabetes Association guidelines indicate that patients with [...] red blood cell lifespan. SPIROMETRY: Reviewed in [facility] SPIROMETRY BASELINE ONLY ([id number]) - ordered on 08/18/24 ID: [id number] Name: JAY BARBER Race: White Ht: 61.61 in Wt: 85.32 lbs Age: 29 Gender: Male : 1995 Dx: Cystic fibrosis_ Smoking Hx: Non-smoker Doctor: JEAN PIERRE KILGORE Test Date: 08/18/2024 Site: [facility]: Herber Montes PRE-BRONCH POST-BRONCH Pre LLN Pred ULN %Pred Post %Pred %Chg SPIROMETRY FVC (L) 2.40 2.78 3.58 4.39 67 FEV1 (L) 0.76 2.38 3.07 3.72 24 FEV1/FVC 0.32 0.75 0.86 0.94 37 PEF L/s (L/sec) 3.84 6.69 8.48 10.27 45 FEF50 (L/sec) 0.25 1.90 4.03 6.15 6 FIF50 (L/sec) 2.64 FEF50/FIF50 0.10 90-100 FIVC (L) 2.30 LRY49-65 (L/sec) 0.21 2.25 3.64 5.36 5 Time (sec) 14.56 FET PEF (sec) 0.04 MACIEL (L) 0.03 Vol Extrap % (%) 1 SPIROMETRY BASELINE ONLY ([id number]) - ordered on 05/05/24 ID: [id number] Name: ELISABETH JAY Race: White Ht: 61.61 [...] 3.18 FEF50/FIF50 0.10 90-100 FIVC (L) 2.33 KEG55-57 (L/sec) 0.25 2.26 3.65 5.38 6 Time (sec) 14.78 FET PEF (sec) 0.04 MACIEL (L) 0.04 Vol Extrap % (%) 1 ID: [id number] Name: JAY BARBER Race: White Ht: 62.01 in Wt: 89.07 lbs Age: 28 Gender: Male : 1995 Dx: Cystic fibrosis with pulmonary manifestations Smoking Hx: Non-smoker Doctor: ALEX PINON Test Date: 02/25/2024 Site: [facility] Tech: Padma Campbell PRE-BRONCH POST-BRONCH Pre LLN Pred ULN %Pred Post %Pred %Chg SPIROMETRY FVC (L) 2.43 2.84 3.65 4.47 66 FEV1 (L) 0.85 2.43 3.13 3.79 27 FEV1/FVC 0.35 0.75 0.86 0.94 40 PEF L/s (L/sec) 3.77 6.74 8.56 10.38 44 FEF50 (L/sec) 0.28 1.99 4.11 6.24 6 FIF50 (L/sec) 2.74 FEF50/FIF50 0.10 90-100 FIVC (L) 2.25 AKF41-13 (L/sec) 0.23 2.29 3.70 5.44 6 Time (sec) 14.69 FET PEF (sec) 0.04 MACIEL (L) 0.03 Vol Extrap % (%) 1 SPIROMETRY BASELINE ONLY - ordered on 02/25/2024 ID: [id number] Name: JAY BARBER Race: White Ht: 62.01 [...] 2.81 FEF50/FIF50 0.09 90-100 FIVC (L) 2.27 INX73-21 (L/sec) 0.22 2.29 3.70 5.44 5 Time (sec) 15.19 FET PEF (sec) 0.04 MACIEL (L) 0.03 Vol Extrap % (%) 1 SPIROMETRY BASELINE ONLY ([id number]) - ordered on 11/12/23 ID: [id number] Name: JAY BARBER Race: White Ht: 62.01 [...] 2.61 FEF50/FIF50 0.11 90-100 FIVC (L) 2.20 IDL69-61 (L/sec) 0.24 2.30 3.71 5.45 6 Time (sec) 14.86 FET PEF (sec) 0.04 MACIEL (L) 0.04 Vol Extrap % (%) 2 SPIROMETRY BASELINE ONLY ([id number]) - ordered on 09/24/23 ID: [id number] Name: JAY BARBER Race: White Ht: 62.01 in Wt: 87.52 lbs Age: 28 Gender: Male : 1995 Dx: Cystic fibrosis_ Smoking Hx: Non-smoker Doctor: JEAN PIERRE KILGORE Test Date: 09/24/2023 Site: [facility] Tech: Padma Campbell PRE-BRONCH POST-BRONCH Pre LLN Pred ULN %Pred Post %Pred %Chg SPIROMETRY FVC (L) 2.71 2.84 3.65 4.47 74 FEV1 (L) 1.03 2.44 3.13 3.80 33 FEV1/FVC 0.38 0.75 0.86 0.94 44 PEF L/s (L/sec) 4.03 6.74 8.56 10.37 47 FEF50 (L/sec) 0.36 2.00 4.13 6.25 8 FIF50 (L/sec) 2.47 FEF50/FIF50 0.15 90-100 FIVC (L) 2.43 QGV27-87 (L/sec) 0.29 2.30 3.71 5.46 7 Time (sec) 14.96 FET PEF (sec) 0.04 MACIEL (L) 0.03 Vol Extrap % (%) 1 SPIROMETRY BASELINE ONLY ([id number]) - ordered on 07/02/23 ID: [id number] Name: JAY BARBER Race: White Ht: 62.01 [...] 3.24 FEF50/FIF50 0.12 90-100 FIVC (L) 2.30 EPL61-63 (L/sec) 0.31 2.31 3.72 5.47 8 Time [...] with treatment plan. Return to clinic at [facility] in 1-2 weeks, with spirometry (spirometry baseline). I spent a total of 120 minutes on the date of the service which included preparing to see the patient, wayc-rw-bper patient care, completing clinical documentation, obtaining and/or reviewing separately obtained history, performing a medically appropriate examination, ordering medications, tests, or procedures, communicating with other HCPs (not separately reported), and care coordination (not separately reported). Electronically Signed: August 18, 2024 documented in this encounter [facility] 08-18-2024 History of Presen t illness Narrative PULM FUNCTION: Provider: Jean Pierre Kilgore MD Spirometry: 1 documented in this encounter [facility] 08-13-2024 Telephone encounter Note Patient would like to hold off on inhaled meropenem at this time. Will re-evaluate how he's feeling when he sees Dr. Kilgore next week. [facility] Work Phone: 08-13-2024 Miscellaneous Notes Patient [...] response from patient. documented in this encounter [facility] 08-13-2024 Telephone encounter Note Discussed with patient that the other oral option is Levaquin - patient believes this has also caused him GI upset in the past. Explained the other option would be inhaled Meropenem- await response from patient. 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 Scheduled for [place] T/Z = > -1.0 - every 5 [...] forward clinic note from today to patient's weigher bulker, regarding optimal approach for liver biopsy (US guided vs. Transjugular) as patient has concerns that if he were to be intubated, he may have a diffucult extubation 07/19/24-pt contacted [place] [facility] to obtain info about their center/clinics Plan for visit: - Sj ordered and scheduled -Needs CF Resp Cult and AFB - Needs repeat Dexa Aug 2024 in [place]? 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 08-11-2024 Note Addended by: ZAIDA SANTOS on: 08/11/2024 11:41 AM Modules accepted: Orders [facility] Work Phone: 08-11-2024 Miscellaneous Notes Addended [...] and would like a new prescription ordered. [facility] [phone] Patient's request for medication is as follows: Requested Prescriptions Pending Prescriptions Disp Refills tranexamic acid (LYSTEDA) 650 mg tablet 30 tablet 3 Sig: Take 2 tablets by mouth three times a day for 5 days. Prescription(s) as above. Please process accordingly. Obed Hoff documented in this encounter [facility] 08-11-2024 Telephone encounter Note Spoke with [...] his appt with Dr. Kilgore next week. [facility] 08-11-2024 Telephone encounter Note Patient started coughing up blood around 4pm yesterday. He started taking the tranexamic tablets but he only has a enough for today and would like a new prescription ordered. [facility] [phone] Patient's request for medication is as follows: Requested Prescriptions Pending Prescriptions Disp Refills tranexamic acid (LYSTEDA) 650 mg tablet 30 tablet 3 Sig: Take 2 tablets by mouth three times a day for 5 days. Prescription(s) as above. Please process accordingly. Obed Hoff 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 24 capsule 3 Blood-Glucose Meter,Continuous ([employer] G7 INTERNETWORKING TECHNICIAN) misc For monitoring sugars 1 Each 1 glucagon (BAQSIMI) 3 mg/actuation nasal spray Use 1 [place] in the nose as needed. 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 60 tablet 1 Insulin [place], Disposable, (BD YARON 2ND GEN PEN NEEDLE) [...] 54 g 11 Blood-Glucose Meter,Continuous (DEXCOM G7 INTERNETWORKING TECHNICIAN) [facility] [place] sugars 1 Each 1 glucagon (BAQSIMI) 3 mg/actuation nasal spray Use 1 [place] in the nose as needed. May repeat [...] (Patient not taking: Reported on 04/07/2024) Vit A,C,S-Oois-Xmxwah (PRESERVISION AREDS) 4,296 mcg-226 mg-90 mg cap [...] 2011) requiring surgical splenorenal shunt creation (2011, [facility]), h/o G1EV and EV (last EGD [...] forward clinic note from today to patient's weigher bulker, Dr. Hamilton regarding optimal approach for liver [...] 2024 10:37 AM documented in this encounter [facility] 07-06-2024 Instructions Stephie Ramirez APRN.ARIAS - 07/06/2024 1:58 PM EDT Patient educated to have ophthalmology visits at least once a year. documented in this encounter [facility] 07-06-2024 Note HNO ID: [id number] Author: STEPHIE RAMIREZ APRN.ARIAS Service: ? Author [...] results in care everywhere, 01/2020: labs in [facility], 07/2020; Alkaline Phosphatase 725 (45-117), ALT 77 (16-61), AST 163 (15-37), 12/2020: results in care everywhere., 03/2021: results In care everywhere, 12/2021: Alkaline Phosphatase 918 (38-113), bone percent 13.9%, liver percent 86.1 , 12/2022: liver function monitored by CF providers, 03/2023: in [facility], 08/2023: LFTS in [facility], 10/2023: LFTS in [facility], 03/2024: liver test in [facility] Dilated Eye Exam: Patient educated to have ophthalmology visits at least once a year. 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 08/2013: New patient visit for Cystic Fibrosis related Diabetes Previous diabetes related labs from [facility] and [facility]everywhere systems reviewed prior to today's office visit. [...] until its approv (more content not included)... [facility] 07-06-2024 History of Presen t illness [...] results in care everywhere, 01/2020: labs in [facility], 07/2020; Alkaline Phosphatase 725 (45-117), ALT 77 (16-61), AST 163 (15-37), 12/2020: results in care everywhere., 03/2021: results In care everywhere, 12/2021: Alkaline Phosphatase 918 (38-113), bone percent 13.9%, liver percent 86.1 , 12/2022: liver function monitored by CF providers, 03/2023: in [facility], 08/2023: LFTS in [facility], 10/2023: LFTS in [facility], 03/2024: liver test in [facility] Dilated Eye Exam: Patient educated to have ophthalmology visits at least once a year. 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 08/2013: New patient visit for Cystic Fibrosis related Diabetes [facility] to today's office visit. [...] Hypertension No date: Liver disease No date: senior care (current) use of insulin (HCC) No date: [...] directed and REPLACE every 10 days Insulin [place], Disposable, (BD YARON 2ND GEN PEN NEEDLE) [...] shortness of breath Blood-Glucose Meter,Continuous (DEXCOM G7 INTERNETWORKING TECHNICIAN) misc For monitoring sugars glucagon (BAQSIMI) 3 mg/actuation nasal spray Use 1 [place] in the nose as needed. May repeat [...] 7. Discussed therapeutic lifestyle changes. Stephie Ramirez APRN.TUNNEL WORKER documented in this encounter [facility] 07-05-2024 Note HNO ID: [id number] Author: STEPHIE RAMIREZ APRN.ARIAS Service: ? Author [...] further kidney damage., 10/2022: prot/creat ratio in [facility], making appointment with nephrology, 07/2023: prot/creat ratio in [facility] Lipid Profile:10/2013: TC 111, HDL 42, LDL [...] total 1.3 (0.2-1.0, mg/dL, 05/2018: [facility], 12[facility], 01/2020: labs in [facility], 07/2020; Alkaline Phosphatase 725 (45-117), ALT 77 (16-61), AST 163 (15-37), 12/2020: results in care everywhere., 03/2021: [facility], 12/2021: Alkaline Phosphatase 918 (38-113), bone percent 13.9%, liver percent 86.1 , 12/2022: liver function monitored by CF providers, 03/2023: in [facility], 08/2023: LFTS in [facility], 10/2023: LFTS in [facility], 03/2024: liver test in [facility] Dilated Eye Exam: Patient educated to have ophthalmology visits at least once a year. 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 08/2013: New patient visit for Cystic Fibrosis related Diabetes [facility] prior to today's office visit. [...] used for t (more content not included)... [facility] 07-05-2024 History of Presen t illness [...] further kidney damage., 10/2022: prot/creat ratio in [facility], making appointment with nephrology, 07/2023: prot/creat ratio in [facility] Lipid Profile:10/2013: TC 111, HDL 42, LDL [...] results in care everywhere, 01/2020: labs in [facility], 07/2020; Alkaline Phosphatase 725 (45-117), ALT 77 (16-61), AST 163 (15-37), 12/2020: results in care everywhere., 03/2021: results In care everywhere, 12/2021: Alkaline Phosphatase 918 (38-113), bone percent 13.9%, liver percent 86.1 , 12/2022: liver function monitored by CF providers, 03/2023: in [facility], 08/2023: LFTS in [facility], 10/2023: LFTS in [facility], 03/2024: liver test in [facility] Dilated Eye Exam: Patient educated to have ophthalmology visits at least once a year. 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 08/2013: New patient visit for Cystic Fibrosis related Diabetes Previous diabetes related labs from [facility] and [facility]-everywhere systems reviewed prior to today's office visit. [...] Hypertension No date: Liver disease No date: senior care (current) use of insulin (HCC) No date: [...] at 6 am and 4 pm. Insulin [place], Disposable, (BD YARON 2ND GEN PEN NEEDLE) [...] as needed for wheezing/shortness of breath. Vit A,C,H-Fatx-Wwidsy (PRESERVISION AREDS) 4,296 mcg-226 mg-90 mg cap [...] times a week. Blood-Glucose Meter,Continuous (DEXCOM G7 INTERNETWORKING TECHNICIAN) misc For monitoring sugars glucagon (BAQSIMI) 3 mg/actuation nasal spray Use 1 [place] in the nose as needed. May repeat [...] visit. Physical Exam documented in this encounter [facility] 05-10-2024 History of Presen t illness [...] BID CFRD: Present, follows with endo at [facility] CGM: Dexcom G7 Insulin regimen: Basaglar 8 [...] Barber DATE: 05/05/2024 TIME: 12:13 PM PAGER: [phone] documented in this encounter 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 EXAM: MRI - CONTRAST TYPE: GROUP II PERIPHERAL IV DATA: Ambulatory: A peripheral IV was started in the Left antecubital site with a Angio cath: 22 gauge. RADIOLOGY DEPARTMENT: MR; Exam(s) Completed: Body: Pancreas/Biliary SIGNATURE: RT Art(R) PATIENT NAME: Jay Barber DATE: May 07, 2024 TIME: 1:46 PM documented in this encounter [facility] 05-05-2024 Instructions Zaida Santos RN - [...] usual activities immediately. documented in this encounter [facility] 05-05-2024 History of Presen t illness [...] x 5 minutes Microwave x 5 minutes Oil Well Cable Tool Operator 158 degrees x 30 minutes Electric steam sterilizer(baby bottle sterilizer) Cold options include Soak in 70% isopropyl alcohol x 5 minutes Soak in 3% hydrogen peroxide x 30 minutes Reviewed replacement recommendations. Nebulizer every 6 months*. Inhaler spacer every 12 months*. Nebulizer filters per manager culinary guidelines*. *More often as needed. 6. EXERCISE/STRETCHING: Patient reports No specific exercise program. He plays with his dog for about 20 minutes on most days. Recommended exercise at least 30 minutes, 3-5 times a week. Goal is 150 minutes per week. 7. 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 Appt [phone]. 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 Burke France in 2020 for [...] ordered ---Following with Dr. Francis Ramirez at [place] [facility] OSTEOPOROSIS ---DEXA with Vitamin D 25 Hydroxy (ng/mL) Date Value 02/27/2024 32.4 Hemoglobin A1C Date Value Ref Range Status 02/03/2024 6.3 (H) 4.3 - 5.6 % Final Comment: [place] [employer] guidelines indicate that patients with HgbA1c in the range 5.7-6.4% are at increased risk for development of diabetes, and intervention by lifestyle modification may be beneficial. HgbA1c greater or equal to 6.5% is considered diagnostic of diabetes. 07/03/2023 6.9 (H) 4.3 - 5.6 % Final Comment: [place] [employer] guidelines indicate that patients with HgbA1c in the range 5.7-6.4% are at increased risk for development of diabetes, and intervention by lifestyle modification may be beneficial. HgbA1c greater or equal to 6.5% is considered diagnostic of diabetes. 03/08/2023 7.7 (H) 4.3 - 5.6 % Final Comment: [place] [employer] guidelines indicate that patients with HgbA1c in the range 5.7-6.4% are at increased risk for development of diabetes, and intervention by lifestyle modification may be beneficial. HgbA1c greater or equal to 6.5% is considered diagnostic of diabetes. Hemoglobin A1C (POCT) Date Value Ref Range Status 03/09/2024 6.1 (A) 4.3 - 5.6 % Final Comment: [facility] [address] [place] [address] Point of care (POC) Hemoglobin A1c (HGBA1C) [...] specific diabetes management situations: The POC device manager culinary provides a normal range of 4.2% to 6.5% for the HGBA1C POC test. However, the [place] Diabetes [employer] guidelines indicate that patients with [...] 6.4 4.2 - 5.6 % Final Comment: Location:[facility], [address] [place] [address], [facility] Point of care (POC) Hemoglobin A1c (HGBA1C) [...] specific diabetes management situations: The POC device manager culinary provides a normal range of 4.2% to 6.5% for the HGBA1C POC test. However, the [place] Diabetes [employer] guidelines indicate that patients with [...] COVID-19 original vaccine, age 12+ yr, monovalent (Compliance 11-Digital BloomNTSverve - PURPLE TOP) 12/24/2020 01/21/2021 12/05/2021 COVID-19 vaccine, age 12+ yr, bivalent (Compliance 11-BIONTECH) 12/04/2022 Haemophilus influenzae b (HbOC) vaccine, 4-dose [...] vaccine, quadrivalent, unspecified formulation 05/27/2012 novel influenza (Z6F8-86) vaccine, PF 10/19/2009 pneumococcal (PCV7) vaccine, 7 [...] (HCC) History of transfusion Hypertension Liver disease senior care (current) use of insulin (HCC) Transfusion history [...] of liquid and take as directed. Insulin [place], Disposable, (BD YARON 2ND GEN PEN NEEDLE) [...] times a week. Blood-Glucose Meter,Continuous (DEXCOM G7 INTERNETWORKING TECHNICIAN) [facility] For monitoring sugars glucagon (BAQSIMI) 3 mg/actuation nasal spray Use 1 [place] in the nose as needed. May repeat [...] times a day for 5 days. Vit A,C,D-Alwy-Dqnspw (PRESERVISION AREDS) 4,296 mcg-226 mg-90 mg cap [...] imaging results. LAST LAB RESULTS: ---Reviewed in [facility] CBC with diff: WBC 5.68 03/17/2024 RBC 2.57 03/17/2024 Hemoglobin 7.4 03/17/2024 Hematocrit 22.7 03/17/2024 MCV 88.3 03/17/2024 MCH 28.8 03/17/2024 MCHC 32.6 03/17/2024 RDW-CV 13.9 03/17/2024 Platelet Count 147 03/17/2024 MPV 9.9 03/17/2024 Neutrophils % 49.9 03/17/2024 Lymph% 27.6 03/17/2024 [place]% 7.4 03/17/2024 Eosin% 13.7 03/17/2024 Baso% 1.2 03/17/2024 Abs Neut (Segs + Bands) 2.83 03/17/2024 Abs [place] 0.42 03/17/2024 Abs Eosin 0.78 03/17/2024 Abs [...] (A) 4.3 - 5.6 % Final Comment: Location:[facility], [address], [place], [address] Point of care (POC) Hemoglobin A1c (HGBA1C) [...] specific diabetes management situations: The POC device manager culinary provides a normal range of 4.2% to 6.5% for the HGBA1C POC test. However, the [place] [employer] guidelines indicate that patients with [...] red blood cell lifespan. SPIROMETRY: Reviewed in [facility] SPIROMETRY BASELINE ONLY ([id number]) - ordered on 05/05/24 ID: [id number] Name: JAY BARBER Race: White Ht: 61.61 in Wt: 93.92 lbs Age: 28 Gender: Male : 1995 Dx: Cystic fibrosis_ Smoking Hx: Non-smoker Doctor: JEAN PIERRE KILGORE Test Date: 05/05/2024 Site: Tech: Karnia Godfrey PRE-BRONCH POST-BRONCH Pre LLN Pred ULN %Pred Post %Pred %Chg SPIROMETRY FVC (L) 2.58 2.79 3.58 4.39 71 FEV1 (L) 0.92 2.39 3.07 3.73 30 FEV1/FVC 0.36 0.75 0.86 0.94 41 PEF L/s (L/sec) 4.34 6.69 8.48 10.27 51 FEF50 (L/sec) 0.31 1.91 4.04 6.16 7 FIF50 (L/sec) 3.18 FEF50/FIF50 0.10 90-100 FIVC (L) 2.33 XLY71-35 (L/sec) 0.25 2.26 3.65 5.38 6 Time (sec) 14.78 FET PEF (sec) 0.04 MACIEL (L) 0.04 Vol Extrap % (%) 1 ID: [id number] Name: JAY BARBER Race: White Ht: 62.01 in Wt: 89.07 lbs Age: 28 Gender: Male : 1995 Dx: Cystic fibrosis with pulmonary manifestations Smoking Hx: Non-smoker Doctor: ALEX PINON Test Date: 02/25/2024 Site: [facility] Tech: Padma Campbell PRE-BRONCH POST-BRONCH Pre LLN Pred ULN %Pred Post %Pred %Chg SPIROMETRY FVC (L) 2.43 2.84 3.65 4.47 66 FEV1 (L) 0.85 2.43 3.13 3.79 27 FEV1/FVC 0.35 0.75 0.86 0.94 40 PEF L/s (L/sec) 3.77 6.74 8.56 10.38 44 FEF50 (L/sec) 0.28 1.99 4.11 6.24 6 FIF50 (L/sec) 2.74 FEF50/FIF50 0.10 90-100 FIVC (L) 2.25 FPC62-83 (L/sec) 0.23 2.29 3.70 5.44 6 Time (sec) 14.69 FET PEF (sec) 0.04 MACIEL (L) 0.03 Vol Extrap % (%) 1 SPIROMETRY BASELINE ONLY - ordered on 02/25/2024 ID: [id number] Name: JAY BARBER Race: White Ht: 62.01 [...] 2.81 FEF50/FIF50 0.09 90-100 FIVC (L) 2.27 XGW38-74 (L/sec) 0.22 2.29 3.70 5.44 5 Time (sec) 15.19 FET PEF (sec) 0.04 MACIEL (L) 0.03 Vol Extrap % (%) 1 SPIROMETRY BASELINE ONLY ([id number]) - ordered on 11/12/23 ID: [id number] Name: ELISABETHJAY Race: White Ht: 62.01 in [...] 2.61 FEF50/FIF50 0.11 90-100 FIVC (L) 2.20 LVG78-46 (L/sec) 0.24 2.30 3.71 5.45 6 Time (sec) 14.86 FET PEF (sec) 0.04 MACIEL (L) 0.04 Vol Extrap % (%) 2 SPIROMETRY BASELINE ONLY ([id number]) - ordered on 09/24/23 ID: [id number] Name: JAY BARBER Race: White Ht: 62.01 in Wt: 87.52 lbs Age: 28 Gender: Male : 1995 Dx: Cystic fibrosis_ Smoking Hx: Non-smoker Doctor: JEAN PIERRE KILGORE Test Date: 09/24/2023 Site: [facility] Tech: Padma Campbell PRE-BRONCH POST-BRONCH Pre LLN Pred ULN %Pred Post %Pred %Chg SPIROMETRY FVC (L) 2.71 2.84 3.65 4.47 74 FEV1 (L) 1.03 2.44 3.13 3.80 33 FEV1/FVC 0.38 0.75 0.86 0.94 44 PEF L/s (L/sec) 4.03 6.74 8.56 10.37 47 FEF50 (L/sec) 0.36 2.00 4.13 6.25 8 FIF50 (L/sec) 2.47 FEF50/FIF50 0.15 90-100 FIVC (L) 2.43 UGU03-44 (L/sec) 0.29 2.30 3.71 5.46 7 Time (sec) 14.96 FET PEF (sec) 0.04 MACIEL (L) 0.03 Vol Extrap % (%) 1 SPIROMETRY BASELINE ONLY ([id number]) - ordered on 07/02/23 ID: [id number] Name: JAY BARBER Race: White Ht: 62.01 [...] 3.24 FEF50/FIF50 0.12 90-100 FIVC (L) 2.30 UXA87-23 (L/sec) 0.31 2.31 3.72 5.47 8 Time [...] with treatment plan. Return to clinic at [place] in 12 weeks, with spirometry (spirometry baseline). I spent a total of 60 minutes on the date of the service which included preparing to see the patient, [id number] patient care, completing clinical documentation, obtaining and/or reviewing separately obtained history, and performing a medically appropriate examination. Electronically Signed: Jean Pierre Kilgore MD, FRANCI, FACP [facility] Respiratory [place] [facility] Adult CF Patients [phone]. Adult patients use option #2 Bronchiectasis (Non-CF) Patients [phone] Laborer [place]: Nell Lozano [phone] Email: [email or web address] Office: [phone] May 05, 2024 documented in this encounter [facility] 05-05-2024 History of Presen t illness Narrative .PULM FUNCTION: Provider: Jean Pierre Kilgore MD Spirometry: 1 System: [facility] - [id number] documented in this encounter 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 Annual Household Income: 25,000 Insurance Medicaid/HMO: [facility]/Other: Adult [facility] Copay Assistance Program: eligible for Chrends, but not needed Financial Concerns: Parking/transportation/medicatio n: parking pass provided; no concerns obtaining or affording medications Daily Care Check in Completed: Yes/No: No Education School:[employer]-psychology major Any developmental issues/delays: none Educational Level of Father of Patient: unkwn Educational Level of Mother of Patient: unkwn Educational Level of Spouse: N/A Social History: -T/F care from [facility] -Advanced lung disease -Has not been interested in pursuing lung transplant -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 He has [facility] Medicaid and adult [facility] for insurance. No issues obtaining or affording medications. His initial disability application was denied and he is now in the appeal process. 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 He has a history of anxiety [...] continue to follow. CHAPARRO Stubbs, [facility] Cystic Fibrosis Food Science Professor V. [phone] documented in this encounter [facility] 04-30-2024 History of Presen t illness [...] OGTT/CFRD: +CFRD -> Follows with Tyler Ramirez, TUNNEL WORKER Dexa: Completed on 09/24/23 -> Lowest T-score [...] since last visit: Plan for visit: - [place] ordered and scheduled - Due for annual [...] Lindo on 07/16/24 documented in this encounter [facility] 04-07-2024 History of Presen t illness [...] 2011) requiring surgical splenorenal shunt creation (2011, [facility]), h/o G1EV and EV (last EGD [...] (HCC) History of transfusion Hypertension Liver disease senior care (current) use of insulin (HCC) Transfusion history [...] a day 15 mL 11 Blood-Glucose Sensor ([employer] G7 SENSOR) jean-paul use as directed and [...] and 4 pm. 60 tablet 1 Insulin [place], Disposable, (BD YARON 2ND GEN PEN NEEDLE) [...] 54 g 11 Blood-Glucose Meter,Continuous (DEXCOM G7 INTERNETWORKING TECHNICIAN) misc For monitoring sugars 1 Each 1 glucagon (BAQSIMI) 3 mg/actuation nasal spray Use 1 [place] in the nose as needed. May repeat [...] (Patient not taking: Reported on 04/07/2024) Vit A,C,W-Kekk-Veuajj (PRESERVISION AREDS) 4,296 mcg-226 mg-90 mg cap [...] 2011) requiring surgical splenorenal shunt creation (2011, [facility]), h/o G1EV and EV (last EGD [...] 2024 3:36 PM documented in this encounter [facility] 04-07-2024 Instructions Tia Lindo MD - 04/07/2024 1:51 PM EDT Schedule RV with Dr. Lindo in 3 months Schedule MRCP as soon as possible Get blood work done in 2 weeks. Take ursodiol 600 mg once daily documented in this encounter [facility] 03-26-2024 Telephone encounter Note Images from the original note were not included. Medication: SPS 15GM/60ML suspension Date Submitted: March 26, 2024 Prescribing Provider: Sally Schneider CNP Method of Submission: CMM Outcome: Denied Reason for Denial: Outcome Date: March 26, [address] [facility] 03-26-2024 Miscellaneous Notes Images from the original note were not included. Medication: SPS 15GM/60ML suspension Date Submitted: March 26, 2024 Prescribing Provider: Sally Schneider CNP Method of Submission: CMM Outcome: Denied Reason for Denial: Outcome Date: March 26, 2024 PRABHA Arriaga documented in this encounter [facility] 03-09-2024 Instructions Stephie Ramirez APRN.TUNNEL WORKER - 03/09/2024 1:24 PM EDT Patient educated to have ophthalmology visits at least once a year. documented in this encounter [facility] 03-09-2024 Note HNO ID: [id number] Author: STEPHIE RAMIREZ APRN.CNP Service: ? Author [...] further kidney damage., 10/2022: prot/creat ratio in [facility], making appointment with nephrology, 07/2023: prot/creat ratio in [facility] Lipid Profile:10/2013: TC 111, HDL 42, LDL [...] results in care everywhere, 01/2020: labs in [facility], 07/2020; Alkaline Phosphatase 725 (45-117), ALT 77 (16-61), AST 163 (15-37), 12/2020: results in care everywhere., 03/2021: results In care everywhere, 12/2021: Alkaline Phosphatase 918 (38-113), bone percent 13.9%, liver percent 86.1 , 12/2022: liver function monitored by CF providers, 03/2023: in [facility], 08/2023: LFTS in [facility], 10/2023: LFTS in [facility], 03/2024: liver test in [facility] Dilated Eye Exam: Patient educated to have ophthalmology visits at least once a year. 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 08/2013: New patient visit for Cystic Fibrosis related Diabetes Previous diabetes related labs from [facility] systems reviewed prior to today's office visit. [...] Your new i (more content not included)... [facility] 03-09-2024 History of Presen t illness [...] results in care everywhere, 01/2020: labs in [facility], 07/2020; Alkaline Phosphatase 725 (45-117), ALT 77 (16-61), AST 163 (15-37), 12/2020: results in care everywhere., 03/2021: results In care everywhere, 12/2021: Alkaline Phosphatase 918 (38-113), bone percent 13.9%, liver percent 86.1 , 12/2022: liver function monitored by CF providers, 03/2023: in [facility], 08/2023: LFTS in [facility], 10/2023: LFTS in [facility], 03/2024: liver test in [facility] Dilated Eye Exam: Patient educated to have ophthalmology visits at least once a year. 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 08/2013: New patient visit for Cystic Fibrosis related Diabetes Previous diabetes related labs from [facility] and [facility] systems reviewed prior to today's office visit. [...] (HCC) History of transfusion Hypertension Liver disease senior care (current) use of insulin (HCC) Transfusion history [...] by mouth two times a day. Insulin [place], Disposable, (BD YARON 2ND GEN PEN NEEDLE) [...] as needed for wheezing/shortness of breath. Vit A,C,F-Xtyl-Ggzzyd (PRESERVISION AREDS) 4,296 mcg-226 mg-90 mg cap [...] instructed twice daily. Blood-Glucose Meter,Continuous (DEXCOM G7 INTERNETWORKING TECHNICIAN) [facility] For monitoring sugars glucagon (BAQSIMI) 3 mg/actuation nasal spray Use 1 [place] in the nose as needed. May repeat [...] 7. Discussed therapeutic lifestyle changes. Stephie Ramirez APRN.TUNNEL WORKER documented in this encounter [facility] 03-09-2024 Note HNO ID: [id number] Author: STEPHIE RAMIREZ APRN.CNP Service: ? Author [...] further kidney damage., 10/2022: prot/creat ratio in [facility], making appointment with nephrology, 07/2023: prot/creat ratio in [facility] Lipid Profile:10/2013: TC 111, HDL 42, LDL [...] results in care everywhere, 01/2020: labs in [facility], 07/2020; Alkaline Phosphatase 725 (45-117), ALT 77 (16-61), AST 163 (15-37), 12/2020: results in care everywhere., 03/2021: results In care everywhere, 12/2021: Alkaline Phosphatase 918 (38-113), bone percent 13.9%, liver percent 86.1 , 12/2022: liver function monitored by CF providers, 03/2023: in [facility], 08/2023: LFTS in [facility], 10/2023: LFTS in [facility], 03/2024: liver test in [facility] Dilated Eye Exam: Patient educated to have ophthalmology visits at least once a year. 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 08/2013: New patient visit for Cystic Fibrosis related Diabetes Previous diabetes related labs from [facility] and [facility] systems reviewed prior to today's office [...] amounts of c (more content not included)... [facility] 03-01-2024 Miscellaneous Notes Scheduling arranged appt at [facility] for tomorrow afternoon. Patient is aware. Received call from [facility] requesting an apointment for PICC line removal with one of [facility]'s general surgeons. Patient has been scheduled on 03/26/[address] Gotti and placed on wait list. Please notify patient if he is scheduled with the incorrect provider for the removal. Patient called and stated his PICC Line has stopped flushing as of last night and wanted to know what to do about it? Should he go to [facility] to have it removed? Call back [phone] documented in this encounter [facility] 02-25-2024 History of Presen t illness [...] ---Referral to ENT for surgical eval. Appt [phone]. 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 Burke France in 2019 for [...] ordered ---Following with Dr. Francis Ramirez at [facility] Vitamin D 25 Hydroxy (ng/mL) Date Value 02/27/2024 32.4 Hemoglobin A1C Date Value Ref Range Status 02/03/2024 6.3 (H) 4.3 - 5.6 % Final Comment: [place] [employer] guidelines indicate that patients with HgbA1c in the range 5.7-6.4% are at increased risk for development of diabetes, and intervention by lifestyle modification may be beneficial. HgbA1c greater or equal to 6.5% is considered diagnostic of diabetes. 07/03/2023 6.9 (H) 4.3 - 5.6 % Final Comment: [place] [employer] guidelines indicate that patients with HgbA1c in the range 5.7-6.4% are at increased risk for development of diabetes, and intervention by lifestyle modification may be beneficial. HgbA1c greater or equal to 6.5% is considered diagnostic of diabetes. 03/08/2023 7.7 (H) 4.3 - 5.6 % Final Comment: [place] [employer] guidelines indicate that patients with HgbA1c in the range 5.7-6.4% are at increased risk for development of diabetes, and intervention by lifestyle modification may be beneficial. HgbA1c greater or equal to 6.5% is considered diagnostic of diabetes. Hemoglobin A1C (POCT) Date Value Ref Range Status 03/09/2024 6.1 (A) 4.3 - 5.6 % Final Comment: Location:[facility], [address], [place], [address] Point of care (POC) Hemoglobin A1c (HGBA1C) [...] specific diabetes management situations: The POC device manager culinary provides a normal range of 4.2% to 6.5% for the HGBA1C POC test. However, the [place] Diabetes [employer] guidelines indicate that patients with [...] 6.4 4.2 - 5.6 % Final Comment: Location:[facility], [address] [place] [address], [address] Point of care (POC) Hemoglobin A1c (HGBA1C) [...] specific diabetes management situations: The POC device manager culinary provides a normal range of 4.2% to 6.5% for the HGBA1C POC test. However, the [place] [employer] guidelines indicate that patients with [...] visit: 0 Hospitalizations since last visit: 0 [employer]/Phone Messages since last visit: Exacerbations in the last 12 months: -Hospital Admit: 07/02/23-07/29/23 treated with Vancomycin through 07/06, Minocycline through 07/22, and Meropenum through 07/24 (not discharged home on any IV abx) -Hospital Admit: 03/07/23-03/11/23 -> discharged on Home IV abx Vanc and Larisa through 04/01/23 Immunization History Administered Date(s) Administered COVID-19 original vaccine, age 12+ yr, monovalent ([employer] - PURPLE TOP) 12/24/2020 01/21/2021 12/05/2021 COVID-19 vaccine, age 12+ yr, bivalent (LawKickBIONTSverve) 12/04/2022 Haemophilus influenzae b (HbOC) vaccine, 4-dose [...] vaccine, quadrivalent, unspecified formulation 05/27/2012 novel influenza (N4J8-28) vaccine, PF 10/19/2009 pneumococcal (PCV7) vaccine, 7 [...] (HCC) History of transfusion 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 Insulin [place], Disposable, (BD YARON 2ND GEN PEN NEEDLE) [...] times a week. Blood-Glucose Meter,Continuous (DEXCOM G7 INTERNETWORKING TECHNICIAN) [facility] [place] monitoring sugars glucagon (BAQSIMI) 3 mg/actuation nasal spray Use 1 [place] in the nose as needed. May repeat [...] times a day for 5 days. Vit A,C,L-Evqr-Oyavsm (PRESERVISION AREDS) 4,296 mcg-226 mg-90 mg cap [...] recent labs LAST LAB RESULTS: ---Reviewed in [facility] CBC with diff: WBC 4.0 02/24/2024 RBC 2.63 02/16/2024 Hemoglobin 7.5 02/24/2024 Hematocrit 23.1 02/24/2024 MCV 93.2 02/16/2024 MCH 30.8 02/16/2024 MCHC 33.1 02/16/2024 RDW-CV 15.9 02/16/2024 Platelet Count 225 02/24/2024 MPV 10.5 02/16/2024 Neutrophils % 45.4 02/24/2024 Lymph% 23.1 02/12/2024 [place]% 8.8 02/12/2024 Eosinophils % 12.1 02/24/2024 Baso% 1.5 02/12/2024 Abs Neut (Segs + Bands) 1.8 02/24/2024 Abs [place] 0.53 02/12/2024 Abs Eosin 0.41 02/12/2024 Abs [...] (A) 4.3 - 5.6 % Final Comment: Location:[facility], [address] [place] [address], [facility] Point of care (POC) Hemoglobin A1c (HGBA1C) [...] specific diabetes management situations: The POC device manager culinary provides a normal range of 4.2% to 6.5% for the HGBA1C POC test. However, the [place] [employer] guidelines indicate that patients with [...] cell lifespan. SPIROMETRY: Reviewed in EPIC ID: [id number] Name: JAY BARBER Race: White Ht: 62.01 in Wt: 89.07 lbs Age: 28 Gender: Male : 1995 Dx: Cystic fibrosis with pulmonary manifestations Smoking Hx: Non-smoker Doctor: ALEX PINON Test Date: 02/25/2024 Site: [facility] Tech: Padma Campbell PRE-BRONCH POST-BRONCH Pre LLN Pred ULN %Pred Post %Pred %Chg SPIROMETRY FVC (L) 2.43 2.84 3.65 4.47 66 FEV1 (L) 0.85 2.43 3.13 3.79 27 FEV1/FVC 0.35 0.75 0.86 0.94 40 PEF L/s (L/sec) 3.77 6.74 8.56 10.38 44 FEF50 (L/sec) 0.28 1.99 4.11 6.24 6 FIF50 (L/sec) 2.74 FEF50/FIF50 0.10 90-100 FIVC (L) 2.25 YVM14-28 (L/sec) 0.23 2.29 3.70 5.44 6 Time (sec) 14.69 FET PEF (sec) 0.04 MACIEL (L) 0.03 Vol Extrap % (%) 1 SPIROMETRY BASELINE ONLY - ordered on 02/25/2024 ID: [id number] Name: JAY BARBER Race: White Ht: 62.01 [...] 2.81 FEF50/FIF50 0.09 90-100 FIVC (L) 2.27 XYM41-44 (L/sec) 0.22 2.29 3.70 5.44 5 Time (sec) 15.19 FET PEF (sec) 0.04 MACIEL (L) 0.03 Vol Extrap % (%) 1 SPIROMETRY BASELINE ONLY ([id number]) - ordered on 11/12/23 ID: [id number] Name: JAY BARBER Race: White Ht: 62.01 [...] 2.61 FEF50/FIF50 0.11 90-100 FIVC (L) 2.20 LOF21-41 (L/sec) 0.24 2.30 3.71 5.45 6 Time (sec) 14.86 FET PEF (sec) 0.04 MACIEL (L) 0.04 Vol Extrap % (%) 2 SPIROMETRY BASELINE ONLY ([id number]) - ordered on 09/24/23 ID: [id number] Name: JAY BARBER Race: White Ht: 62.01 in Wt: 87.52 lbs Age: 28 Gender: Male : 1995 Dx: Cystic fibrosis_ Smoking Hx: Non-smoker Doctor: JEAN PIERRE KILGORE Test Date: 09/24/2023 Site: [facility] Tech: Padma Campbell PRE-BRONCH POST-BRONCH Pre LLN Pred ULN %Pred Post %Pred %Chg SPIROMETRY FVC (L) 2.71 2.84 3.65 4.47 74 FEV1 (L) 1.03 2.44 3.13 3.80 33 FEV1/FVC 0.38 0.75 0.86 0.94 44 PEF L/s (L/sec) 4.03 6.74 8.56 10.37 47 FEF50 (L/sec) 0.36 2.00 4.13 6.25 8 FIF50 (L/sec) 2.47 FEF50/FIF50 0.15 90-100 FIVC (L) 2.43 LQB24-15 (L/sec) 0.29 2.30 3.71 5.46 7 Time (sec) 14.96 FET PEF (sec) 0.04 MACIEL (L) 0.03 Vol Extrap % (%) 1 SPIROMETRY BASELINE ONLY ([id number]) - ordered on 07/02/23 ID: [id number] Name: JAY BARBER Race: White Ht: 62.01 [...] 3.24 FEF50/FIF50 0.12 90-100 FIVC (L) 2.30 WYQ05-44 (L/sec) 0.31 2.31 3.72 5.47 8 Time [...] with treatment plan. Return to clinic at [facility] in 4 weeks, with spirometry (spirometry baseline). I spent a total of 85 minutes on the date of the service which included preparing to see the patient, zduz-ok-kgbs patient care, completing clinical documentation, performing a medically appropriate examination, and counseling and educating the patient/family/caregiver. Electronically Signed: Jean Pierre Kilgore MD, FRANCI, FACP [facility] Adult Cystic Fibrosis [facility] Bronchiectasis [facility] Respiratory [place] [facility] Adult CF Patients [phone]. Adult patients use option #2 Bronchiectasis (Non-CF) Patients [phone] [employer] [place]: Nell Lozano [phone] Email: [email or web address] Office: [phone] February 25, 2024 documented in this encounter [facility] 02-25-2024 History of Presen t illness [...] visit. Either the patient or their legal employer relations representative has been informed of the risks [...] OPAT today. Okay to remove PICC. Notified [facility] at [phone], verbal orders given to Peewee (pharmacist). Called patient to update on plan - no answer, left voicemail advising to stop IV vanc and meropenem at this time. Fiordaliza Mcfarlane RPh 02/25/2024 9:39 AM documented in this encounter [facility] 02-20-2024 Miscellaneous Notes Pt notified office that he received letter from [facility] stating they will not pay for the last 3 days of his hospitalization. SW left [facility] re: likely utilization review had not received all information that required him to stay after initial copat was written. Instructed him to just hang on to the letter. Hospital will likely send necessary documentation to get stay approved. Pt to let me know if he receive further documentation or bill. documented in this encounter [facility] 02-19-2024 Miscellaneous Notes SW handling patient's [...] Patient received a letter from his insurance [employer] regarding his inpatient stay stating he will not be covered for February 12 & . Patient has questions regarding this letter and wants to know [facility] or bring the letter to his appointment with Dr. Kilgore next week? Please advise [phone] documented in this encounter [facility] 02-19-2024 History of Presen t illness Narrative [facility] OPAT PHARMACIST VANCOMYCIN DOSING NOTE Patient [...] sooner. 5. Notified [facility] at [phone], verbal orders given to Rupert (pharmacist). Advised [...] questions, please contact Fiordaliza Mcfarlane RPh at [phone]. Age: [age] year old Allergies: ALLERGIES Allergen [...] Fiordaliza Mcfarlane RPh documented in this encounter [facility] 02-18-2024 Miscellaneous Notes Addended by: ZAIDA SANTOS on: 02/18/2024 03:41 PM Modules accepted: Orders documented in this encounter [facility] 02-18-2024 History of Presen t illness [...] 2023 Last OGTT/CFRD: +CFRD -> Follows with [facility] Dexa: Completed on 09/24/23 -> Lowest [...] Ibuprofen: No Referral to Endo: follows with [facility]- next visit scheduled for 03/09/24 Referral to Transplant: Lung and liver discussed extensively with patient during July 2023 hospital admission - pt eventually deferred at hospital discharge EPIC/Phone Messages since last visit: -needed Miralax clean out--stayed on maintenance dose -discussed vitamin supplementation Plan for visit: - Yohana Stuart visit - F/u visit from [facility] admission 02/03/24 - 02/16/24 for CF Exacerbation and Upper GIB - treated with IV Meropenem, Minocycline and Vancomycin while inpatient - transferred to MICU and had EGD done on 02/05/24 that showed two duodenal ulcers (not actively bleeding) - treated with epi injection and clip x 2 - discharged home on IV meropenem and IV vancomycin via PICC line - goes to [facility] for weekly labs and line care (tentative end date of IV abx on 02/23/24) - [place] ordered and scheduled - Should have brought a sputum sample with him - cup mailed to him on 02/18/24 - 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 Lindo - REMIND PATIENT: Has Endocrinology visit scheduled at [place] on 03/09/24 with Stephie Ramirez - needs f/u from his latest DEXA results on 09/22/23 -> lowest T-score -3.1 in L femoral neck - Already has a 3 month f/u visit scheduled with Dr. Kilgore at [facility] on 05/05/24 documented in this encounter [facility] 02-18-2024 History of Presen t illness [...] 2023 Last OGTT/CFRD: +CFRD -> Follows with [facility] Dexa: Completed on 09/24/23 -> Lowest [...] PRBC on 02/13/24 Plan for visit: - [facility] visit - Hospital Admission f/u - was at [facility] from 02/03/24 - 02/16/24 for CF [...] RT, and SW - complete at next [facility] visit on 05/05/24 - REMIND PATIENT: He has a hepatology visit scheduled at [facility] on 04/07/[address] Lindo - REMIND PATIENT: He has an endocrinology visit at [place] with Stephie Ramirez CNP ON 03/09/24 - needs to f/u regarding his bone density results - Already has a 3 month f/u visit with Dr. Kilgore scheduled on 05/05/24 at [facility] documented in this encounter [facility] 02-18-2024 History of Presen t illness [...] to his local [facility] lab location in [place] to have this collected. Orders have been placed. Fiordaliza Mcfarlane RPh 02/18/2024 4:33 PM documented in this encounter [facility] 02-18-2024 Miscellaneous Notes Addended by: FIORDALIZA MCFARLANE on: 02/18/2024 04:35 PM Modules accepted: Orders documented in this encounter [facility] 02-18-2024 Miscellaneous Notes Called patient and asked that he obtain a sputum sample prior to his upcoming appointment next week with Dr. Kilgore in order to drop it off while he's there. Patient agreeable. Sputum cup provided to School Treasurer to mail to patient. documented in this encounter [facility] 02-17-2024 Miscellaneous Notes (RF1) Have you [...] Randall Rodríguez RN documented in this encounter [facility] 02-16-2024 History of Presen t illness Narrative Coordinated care with inpatient primary pulmonary team and CF team. Recommended celiac labs to assess for celiac disease given low albumin and ongoing lower extremity edema. Patient will get outpatient with labs 02/[address] documented in this encounter [facility] 02-15-2024 Miscellaneous Notes Follow up appointment: Hepatology Schedule follow up appointment within 1 week Patient eligible for virtual visit? Schedule with [facility] Provider [facility] Provider: TIA LINDO [[id number]] Testing Ordered Follow Up Reason: CF-related liver disease Please advise and assist with scheduling pt for a f/u w/ Dr. Lindo at the provider's convenience. Thank you! documented in this encounter [facility] 02-13-2024 History of Presen t illness [...] PICC Team while admitted Home Care Agency: personnel and payroll technician: OP clinic: [facility] for labs and line care [facility]fusion [facility] Agency: personnel and payroll technician: [facility] Fax: Have we called HC agency to follow up orders/additional needs? TBD Did we need to contact HC Liaison (Teresa Medina or Mckenna Masterson): Yes or No. Issues: No Labs ordered: CBC w/ Diff CMP Pre-dose Vancomycin Labs once or twice weekly: Twice weekly Days: TBD Patient phone number [phone] Were they contacted? Clinic follow-up appointment date: TBD documented in this encounter [facility] 02-12-2024 History of Presen t illness Narrative PULM FUNCTION SMARTBLOCK: Inpatient: Yes Spirometry: 1 documented in this encounter [facility] 02-09-2024 History of Presen t illness Narrative Images from the original note were not included. [facility] Outpatient Parenteral Antimicrobial Therapy (OPAT) Start Form Patient Info Patient MRN Patient Name Address Date of [id number] Jay Barber [address] [facility] [id number] 1995 Start Date 02/09/2024 Physician Group Cc_main [...] Follow Up (Regular hours), (Off hours) Address [address] [place] [address] Prescribing Provider's signature - electronically signed by Jasmyn Bailon MD on 02/09/24 at 4:00 PM documented in this encounter [facility] 02-05-2024 History of Past i llness Narrative Problem Noted Date Diagnosed Date Resolved Date Acute bleeding 02/05/2024 02/16/2024 Cystic fibrosis with pulmonary exacerbation 11/05/2022 02/16/2024 documented as of this encounter (statuses as of 02/16/2024) [facility]07[facility] History of Past illness Narrative* Problem Noted Date Diagnosed Date Resolved Date Acute bleeding 02/05/2024 02/16/2024 Cystic fibrosis with pulmonary exacerbation 11/05/2022 02/16/2024 documented as of this encounter (statuses as of 02/17/2024) [facility] History of Past illness Narrative* Problem Noted Date Diagnosed Date Resolved Date Acute bleeding 02/05/2024 02/16/2024 Cystic fibrosis with pulmonary exacerbation 11/05/2022 02/16/2024 documented as of this encounter (statuses as of 02/17/2024) [facility] History of Past illness Narrative* Problem Noted Date Diagnosed Date Resolved Date Acute bleeding 02/05/2024 02/16/2024 Cystic fibrosis with pulmonary exacerbation 11/05/2022 02/16/2024 documented as of this encounter (statuses as of 02/18/2024) [facility] History of Past illness Narrative* Problem Noted Date Diagnosed Date Resolved Date Acute bleeding 02/05/2024 02/16/2024 Cystic fibrosis with pulmonary exacerbation 11/05/2022 02/16/2024 documented as of this encounter (statuses as of 02/18/2024) [facility] History of Past illness Narrative* Problem Noted Date Diagnosed Date Resolved Date Acute bleeding 02/05/2024 02/16/2024 Cystic fibrosis with pulmonary exacerbation 11/05/2022 02/16/2024 documented as of this encounter (statuses as of 02/18/2024) [facility] History of Past illness Narrative* Problem Noted Date Diagnosed Date Resolved Date Acute bleeding 02/05/2024 02/16/2024 Cystic fibrosis with pulmonary exacerbation 11/05/2022 02/16/2024 documented as of this encounter (statuses as of 02/18/2024) [facility] History of Past illness Narrative* Problem Noted Date Diagnosed Date Resolved Date Acute bleeding 02/05/2024 02/16/2024 Cystic fibrosis with pulmonary exacerbation 11/05/2022 02/16/2024 documented as of this encounter (statuses as of 02/18/2024) [facility] History of Past illness Narrative* Problem Noted Date Diagnosed Date Resolved Date Acute bleeding 02/05/2024 02/16/2024 Cystic fibrosis with pulmonary exacerbation 11/05/2022 02/16/2024 documented as of this encounter (statuses as of 02/18/2024) [facility] History of Past illness Narrative* Problem Noted Date Diagnosed Date Resolved Date Acute bleeding 02/05/2024 02/16/2024 Cystic fibrosis with pulmonary exacerbation 11/05/2022 02/16/2024 documented as of this encounter (statuses as of 02/20/2024) [facility] History of Past illness Narrative* Problem Noted Date Diagnosed Date Resolved Date Acute bleeding 02/05/2024 02/16/2024 Cystic fibrosis with pulmonary exacerbation 11/05/2022 02/16/2024 documented as of this encounter (statuses as of 02/24/2024) [facility] History of Past illness Narrative* Problem Noted Date Diagnosed Date Resolved Date Acute bleeding 02/05/2024 02/16/2024 Cystic fibrosis with pulmonary exacerbation 11/05/2022 02/16/2024 documented as of this encounter (statuses as of 02/25/2024) [facility] History of Past illness Narrative* Problem Noted Date Diagnosed Date Resolved Date Acute bleeding 02/05/2024 02/16/2024 Cystic fibrosis with pulmonary exacerbation 11/05/2022 02/16/2024 documented as of this encounter (statuses as of 03/01/2024) [facility] History of Past illness Narrative* Problem Noted Date Diagnosed Date Resolved Date Acute bleeding 02/05/2024 02/16/2024 Cystic fibrosis with pulmonary exacerbation 11/05/2022 02/16/2024 documented as of this encounter (statuses as of 03/01/2024) [facility] History of Past illness Narrative* Problem Noted Date Diagnosed Date Resolved Date Acute bleeding 02/05/2024 02/16/2024 Cystic fibrosis with pulmonary exacerbation 11/05/2022 02/16/2024 documented as of this encounter (statuses as of 03/02/2024) [facility] History of Past illness Narrative* Problem Noted Date Diagnosed Date Resolved Date Acute bleeding 02/05/2024 02/16/2024 Cystic fibrosis with pulmonary exacerbation 11/05/2022 02/16/2024 documented as of this encounter (statuses as of 03/08/2024) [facility] History of Past illness Narrative* Problem Noted Date Diagnosed Date Resolved Date Acute bleeding 02/05/2024 02/16/2024 Cystic fibrosis with pulmonary exacerbation 11/05/2022 02/16/2024 documented as of this encounter (statuses as of 03/10/2024) [facility] History of Past illness Narrative* Problem Noted Date Diagnosed Date Resolved Date Acute bleeding 02/05/2024 02/16/2024 Cystic fibrosis with pulmonary exacerbation 11/05/2022 02/16/2024 documented as of this encounter (statuses as of 03/18/2024) [facility] Miscellaneous Notes* Telephone Encounter - Zaida [...] abdomen. Let patient know to come to [facility] ED as soon as he can [...] clinical guidance. Jay (Self) [facility] History of Present illness Narrative* Fernando [...] NEEDS Last OGTT/CFRD: +CFRD -> Follows with [facility] Dexa: Completed on 09/24/23 -> Lowest [...] Ibuprofen: No Referral to Endo: follows with [facility]; scheduled 03/09/24 Referral to Transplant: Lung [...] weeks Fernando Zhang RD [facility] History of Present illness Narrative* Stephie Ramirez, ADALI.TUNNEL WORKER - 11/20/2023 11:44 AM EST Subjective Important [...] further kidney damage., 10/2022: prot/creat ratio in [facility], making appointment with nephrology, 07/2023: prot/creat ratio in [facility] Lipid Profile:10/2013: TC 111, HDL 42, LDL [...] results in care everywhere, 12/2019: [facility], 01/2020: labs in [facility], 07/2020; Alkaline Phosphatase 725 (45-117), ALT 77 (16-61), AST 163 (15-37), 12/2020: results in care everywhere., 03/2021: results In care everywhere, 12/2021: Alkaline Phosphatase 918 (38-113), bone percent 13.9%, liver percent 86.1 , 12/2022: liver function monitored by CF providers, 03/2023: in [facility], 08/2023: LFTS in [facility], 10/2023: LFTS in [facility] Dilated Eye Exam: Patient educated to have ophthalmology visits at least once a year. 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 08/2013: New patient visit for Cystic Fibrosis related Diabetes [facility] to today's office visit. [...] (HCC) History of transfusion Hypertension Liver disease senior care (current) use of insulin (HCC) Transfusion history [...] as needed for wheezing/shortness of breath. Vit A,C,P-Izny-Exyyzu (PRESERVISION AREDS) 4,296 mcg-226 mg-90 mg cap [...] instructed twice daily. Blood-Glucose Meter,Continuous (DEXCOM G7 INTERNETWORKING TECHNICIAN) misc For monitoring sugars Blood-Glucose Sensor (DEXCOM G7 SENSOR) jean-paul One sensor every 10 days insulin lispro (HUMALOG KWIKPEN INSULIN) 100 unit/mL Dose varies units with meals and sliding scale, using about 30 total units a day Insulin [place], Disposable, (BD ULTRA-FINE YARON PEN NEEDLE) 32 gauge x 5/32 5x/day glucagon (BAQSIMI) 3 mg/actuation nasal spray Use 1 [place] in the nose as needed. May repeat [...] this visit. Physical Exam [facility] History of Present illness Narrative* Varsha Thomason LISW - 11/12/2023 4:43 PM EST CYSTIC FIBROSIS SOCIAL WORK PROGRESS NOTE DATE: 11/12/23 TIME: 4:30 PM Jay is here for a follow up appointment. Pt is still working with CF [employer]. W to reach out to [employer] re: possible missed medical records. Pt having a difficult time adjusting to not working. Doesn't feel useful or purposeful. Completed mental health screening today. PHQ9- 7 ELVIS-6 Mental Health Coordination No referrals needed Discussed options such as volunteering, going to the gym, pulmonary rehab, and/or a class, or picking up a new hobby, when he is feeling good. 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 Discussed CF lifstyle/exercise grants. He would consider Pulmonary rehab. Will look into local locations for him and have MD send order. SW will f/u with pt re discussed above. CALOS Stubbs-S Cystic Fibrosis Social Work V. [phone] P. [phone] [facility] History of Present illness Narrative* Zaida [...] 03/08/23 Last OGTT/CFRD: +CFRD -> Follows with [facility] Dexa: Completed on 09/24/23 -> Lowest [...] Ramirez in Endo Plan for visit: - [place] ordered and scheduled for correct floor - F/u regarding DEXA completed on 09/24/23 - did he arrange f/u as instructed? Lowest T-score is -3.1 in left femoral neck - Encourage patient to make a f/u visit with hepatology? (Has declined recommendations for lung/liver transplant) - Needs Mental Health Screening [facility] Miscellaneous Notes* Telephone Encounter - She Pete DO - 10/03/2023 11:29 AM EDT Called and spoke with Vero, pharmacist at [facility]. Explained his adjusted dose due to liver disease. Taking 2 orange pills on even days of the month and 1 orange pill on odd days of the month, No bluepills She Pete DO October 03, 2023 11:31 AM * Telephone Encounter - Daniel Goel - 10/03/2023 10:37 AM EDT Received call from [employer] with [employer] requesting clarification on the directions on the patient's (TRIKAFTA). Is it: Alternate between 2(starting 07/30) and 1 tablet every morning , hold evening dose or Take 2 combination tablets in the morning and take 1 Ivacaftor tablet in the evening. DO NOT crush,chew, or open. Class: Med Update Please call [phone] option 1, option 6 or fax [phone] [facility] History of Present illness Narrative* Sydni [...] 24, 2023 9:15 AM documented in [facility] History of Present illness Narrative* She [...] ---Referral to ENT for surgical eval. Appt [phone]. Severe protein calorie malnutrition - continue ensures - needs to see Fernando Prior Invasive Pulmonary Aspergillus infection/Trichosporonosis - treated with voriconazole by ID independent marketing consultant Dr. Burke France in 2020 for [...] done ---Following with Dr. Francis Ramirez at [facility] ANNUAL SCREENING: ANNUAL LABS: 07/2023 OGTT: NA [...] COVID-19 original vaccine, age 12+ yr, monovalent ([employer] - PURPLE TOP) 12/24/2020 01/21/2021 12/05/2021 COVID-19 vaccine, age 12+ yr, bivalent (Compliance 11-BIONTECH) 12/04/2022 Haemophilus influenzae b (HbOC) vaccine, 4-dose [...] vaccine, quadrivalent, unspecified formulation 05/27/2012 novel influenza (V0K4-81) vaccine, PF 10/19/2009 pneumococcal (PCV13) vaccine, 13 [...] (HCC) History of transfusion Hypertension Liver disease senior care (current) use of insulin (HCC) Transfusion history [...] Rash, GI Upset CURRENT OUTPATIENT MEDICATIONS: Vit A,C,L-Aqph-Kylasb (PRESERVISION AREDS) 4,296 mcg-226 mg-90 mg cap [...] instructed twice daily. Blood-Glucose Meter,Continuous (DEXCOM G7 INTERNETWORKING TECHNICIAN) [facility] [place] sugars insulin lispro (HUMALOG KWIKPEN INSULIN) 100 unit/mL Dose varies units with meals and sliding scale, using about 30 total units a day Insulin [place], Disposable, (BD ULTRA-FINE YARON PEN NEEDLE) 32 gauge x 5/32 5x/day glucagon (BAQSIMI) 3 mg/actuation nasal spray Use 1 [place] in the nose as needed. May repeat [...] recent EKG LAST LAB RESULTS: ---Reviewed in [facility] CBC with diff: WBC 8.00 09/10/2023 RBC 3.22 09/10/2023 Hemoglobin 10.0 09/10/2023 Hematocrit 28.8 09/10/2023 MCV 89.4 09/10/2023 MCH 31.1 09/10/2023 MCHC 34.7 09/10/2023 RDW-CV 14.3 09/10/2023 Platelet Count 185 09/10/2023 MPV 9.2 09/10/2023 Neut% 66.9 09/10/2023 Lymph% 20.1 09/10/2023 [place]% 8.1 09/10/2023 Eosin% 16.6 11/26/2022 Baso% 0.8 09/10/2023 Abs Neut (ANC) 5.36 09/10/2023 Abs [place] 0.65 09/10/2023 Abs Eosin 0.30 09/10/2023 Abs [...] 05/29/2018 10.3 06/25/2016 7.0 SPIROMETRY: Reviewed in [facility] MICROBIOLOGY: Reviewed MICROBIOLOGY SNAPSHOT Written and verbal health teaching given to patient, patient verbalizes understanding and agrees with treatment plan. I spent a total of 50 minutes on the date of the service which included preparing to see the patient, kjee-pp-ffcu patient care, completing clinical documentation, obtaining and/or reviewing separately obtained history, performing a medically appropriate examination, counseling and educating the pat ient/family/caregiver, ordering medications, tests, or procedures, communicating with other HCPs (not separately reported), independently interpreting results (not separately reported), communicatingresults to the patient/family/caregiver, and care coordination (not separately reported). Electronically Signed: She Pete DO September 24, [address] [facility]23 History of Present illness Narrative* Zaida [...] None Other issues: Plan for visit: - [facility] office visit - Sj ordered and scheduled - Dexa ordered and scheduled for same day - Needs fibroscan ordered and scheduled - Needs annual RT visit during next [facility] [place] visit - Needs Mental Health Screening during next [facility] [place] visit documented in this [facility]09[facility]23 Miscellaneous Notes* Telephone Encounter - Sally Schneider APRN.TUNNEL WORKER - 08/21/2023 12:35 PM EDT Called patient , his potassium was elevated on labs from 08/18. He reports feeling pretty good. No issue with swelling or abdominal fluid He has been taking torsemide daily still Plan Kayexalate X 1 dose He will get labs tomorrow repeat CMP and CBC/diff Sally Schneider APRN.TUNNEL WORKER documented in this encounterMount [facility]09[facility]2023 Miscellaneous Notes* Telephone Encounter - Stacie [...] day. Fredo Moreno DO documented in this encounterMount [facility]. [facility]09-[facility]2023 History of Present illness Narrative* Fredo [...] (HCC) History of transfusion Hypertension Liver disease senior care (current) use of insulin (HCC) Transfusion history [...] (BAQSIMI) 3 mg/actuation nasal spray Use 1 [place] in the nose as needed. May repeat [...] test strip 3x/day Blood-Glucose Meter,Continuous (DEXCOM G7 INTERNETWORKING TECHNICIAN) misc For monitoring sugars Blood-Glucose Sensor (DEXCOM G7 SENSOR) jean-paul One sensor every 10 days Insulin [place], Disposable, (BD ULTRA-FINE YARON PEN NEEDLE) 32 [...] Lymph 1.00 - 4.00 k/uL 1.20 1.52 [place]% % 8.6 11.3 Abs [place] <0.87 k/uL 0.37 0.78 Eosin% % 8.6 [...] which included preparing to see the patient, [id number] patient care, completing clinical documentation, obtaining and/or reviewing separately obtained history, performing a medically appropriate examination, counseling and educating the pat ient/family/caregiver, ordering medications, tests, or procedures, communicating with other HCPs (not separately reported), and communicating results to the patient/family/caregiver. Fredo Moreno DO documented in this encounterMount St. [facility]09-12-2023 History of Present illness Narrative* Cheyanne Kraus RRT - 08/12/2023 10:47 AM EDT Faxed Nebulizer Order, notes, demographics to [facility] Doctor at [phone], ph [phone]. Patient ndd not receive unit from Pulmonary Rehab Coordinator. Unit will be shipped by [facility] . Cheyanne Kraus RRT documented in this encounterMount St. Mary [facility]09-11-2023 History of Present illness Narrative* Stephie Ramirez APRN.TUNNEL WORKER - 08/11/2023 1:33 PM EDT Subjective Date [...] results in care everywhere, 01/2020: labs in [facility], 07/2020; Alkaline Phosphatase 725 (45-117), ALT 77 (16-61), AST 163 (15-37), 12/2020: results in care everywhere., 03/2021: results In care everywhere, 12/2021: Alkaline Phosphatase 918 (38-113), bone percent 13.9%, liver percent 86.1 , 12/2022: liver function monitored by CF providers, 03/2023: in [facility], 08/2023: LFTS in [facility] Dilated Eye Exam: Patient educated to have ophthalmology visits at least once a year. 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 08/2013: New patient visit for Cystic Fibrosis related Diabetes Previous diabetes related labs from [facility] and [facility] systems reviewed prior to today's office [...] (HCC) History of transfusion Hypertension Liver disease senior care (current) use of insulin (HCC) Transfusion history [...] instructed twice daily. Blood-Glucose Meter,Continuous (DEXCOM G7 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 May repeat [...] 7. Discussed therapeutic lifestyle changes. Stephie Ramirez APRN.TUNNEL WORKER documented in this encounterMount St. Mary Hospital09-06-2023 Miscellaneous Notes* Telephone Encounter - Varsha Thomason LISW - 08/06/2023 4:15 PM EDT DAVID signed by pt for medical records to be sent to the [facility]. Records to be securely sent to assistance program. documented in this encounterMount St. Mary Hospital09-06-2023 History of Present illness Narrative* Jean Pierre Kilgore MD - 08/06/2023 1:52 PM EDT VIRTUAL VISIT PROGRESS NOTE This is a virtual visit using [employer] video visit. It required patient-provider interaction for themedical decision making as documented below. I have communicated my name and active licensure. The patient's identity and physical location wereverified at the time of this visit. 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 Blood-Glucose Meter,Continuous (DEXCOM G7 INTERNETWORKING TECHNICIAN) [facility] [place] monitoring sugars Blood-Glucose Sensor (DEXCOM G7 SENSOR) jean-paul One sensor every 10 days insulin lispro (HUMALOG KWIKPEN INSULIN) 100 unit/mL Dose varies units with meals and sliding scale, using about 30 total units a day Insulin [place], Disposable, (BD ULTRA-FINE YAORN PEN NEEDLE) 32 gauge x 5/32 5x/day glucagon (BAQSIMI) 3 mg/actuation nasal spray Use 1 [place] in the nose as needed. May repeat [...] to baseline (best FEV1 since transferring to [facility] a year ago) FEV1%: [...] 4 weeks -has annual scheduled 09/16/23 on [facility] -schedule DEXA that day 2. ADVANCED LUNG [...] which included preparing to see the patient, nvao-zd-yqcy patient care, and completing clinical documentation Jean Pierre Kilgore MD documented in this encounterMount St. Mary Hospital09-05-2023 Miscellaneous Notes* Telephone Encounter - Zaida [...] tomorrow with Dr. Kilgore documented in this encounterMount St. Mary Hospital08-30-2023 Miscellaneous Notes* Telephone Encounter - Isaac Gibson - 07/30/2023 11:12 AM EDT 90 DAY SUPPLY request for Albuterol Inhaler Last office visit: 07/17/23 Future Appointment: 08/06/23 Pharmacy: [facility] Please approve or deny as appropriate. documented in this encounterMount St. Mary Hospital08-24-2023 Miscellaneous Notes* Telephone Encounter - Zaida Santos RN - 07/24/2023 3:46 PM EDT Addressed by SW documented in this encounterMount St. Mary Hospital08-24-2023 History of Present illness Narrative* Alicia Coello Tech - 07/24/2023 2:09 PM EDT PULM FUNCTION SMARTBLOCK: Provider: Nabor Villasenor PA-C Inpatient: Yes Spirometry: 1 documented [address]Mount [address] Mary Hospital08-17-2023 History of Present illness Narrative* Randall Weaver RRT - 2023 9:37 AM EDT PULM FUNCTION SMARTBLOCK: Provider: She Pete DO Inpatient: Yes Spirometry: 1 System: [facility] - [id number] documented in this encounterMount St. Mary Hospital08-10-2023 History of Present illness Narrative* Tyler Davis Tech - 07/10/2023 1:19 PM EDT PULM FUNCTION SMARTBLOCK: Provider: She Pete DO Spirometry: 1 [id number] documented [address]Mount [address] 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 Annual Household Income: 25,000 Insurance [facility]/Other: Adult [facility] Copay Assistance Program: eligible for Chrends, but not needed Financial Concerns: Parking/transportation/medication: parking pass provided; no concerns obtaining or affording medications Daily Care Check in Completed: Yes/No: No Education School:[employer]-psychology major Any developmental issues/delays: none Educational Level of Father of Patient: unkwn Educational Level of Mother of Patient: unkwn Educational Level of Spouse: N/A Social History: -T/F care from [facility] -Advanced lung disease -Has not been interested in pursuing lung transplant -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 He just started this job 2 weeks ago. Requesting letter after admission when he can go back to work. He has [facility] Medicaid and adult [facility] for insurance. No issues obtaining or [...] will continue to follow. documented in this encounterMount St. Mary Hospital08-02-2023 History of Present illness Narrative* Cayetano Malik RRT - 07/02/2023 2:04 PM EDT PULM FUNCTION SMARTBLOCK: Provider: She Pete DO Spirometry: 1 documented [address]Mount [address] Mary Hospital08-02-2023 History of Present illness Narrative* Sally [...] done ---Following with Dr. Francis Ramirez at [facility], last seen 04/07/2023 Latest Reference Range & [...] ---Referral to ENT for surgical eval. Appt [phone]. 8. Severe protein calorie malnutrition - continue ensures 9. Prior Invasive Pulmonary Aspergillus infection/Trichosporonosis - treated with voriconazole by [facility] independent marketing consultant Dr. Burke France in 2019 for [...] COVID-19 original vaccine, age 12+ yr, monovalent (Shopdeca - PURPLE TOP) 12/24/2020 01/21/2021 12/05/2021 COVID-19 vaccine, age 12+ yr, bivalent (Compliance 11-Infoflow) 12/04/2022 Haemophilus influenzae b (HbOC) vaccine, 4-dose [...] vaccine, quadrivalent, unspecified formulation 05/27/2012 novel influenza (M0U6-31) vaccine, PF 10/19/2009 pneumococcal (PCV13) vaccine, 13 valent (PREVNAR 13) 05/26/2019 pneumococcal (PCV7) vaccine, 7 valent (PREVNAR 7) 01/08/2006 pneumococcal (PPV23) vaccine, 23 valent (PNEUMOVAX 23) 10/23/2011 07/28/2019 poliovirus (IPV) vaccine, inactivated (IPOL) 1993 01/11/1994 05/20/1994 02/13/1995 tetanus diphtheria pertussis (Tdap) vaccine, age 7+ yr (ADACEL, BOOSTRIX) 05/29/2012 Immunization History Administered Date(s) Administered COVID-19 original vaccine, age 12+ yr, monovalent (Shopdeca - PURPLE TOP) 12/24/2020 01/21/2021 12/05/2021 COVID-19 vaccine, age 12+ yr, bivalent (Shopdeca) 12/04/2022 Haemophilus influenzae b (HbOC) vaccine, 4-dose [...] vaccine, quadrivalent, unspecified formulation 05/27/2012 novel influenza (I1S3-03) vaccine, PF 10/19/2009 pneumococcal (PCV13) vaccine, 13 [...] related to cystic fibrosis (HCC) 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 Blood-Glucose Meter,Continuous (DEXCOM G7 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 May repeat [...] Take 10 mg by mouth once daily. esrfmupnhxx-yrlhjbgyth-yaoyhujgi (TRIKAFTA) 100-50-75 mg(d) /150 mg (n) tablet [...] recent labs LAST LAB RESULTS: ---Reviewed in [facility] CBC with diff: WBC 6.65 03/24/2023 RBC 4.18 03/24/2023 Hemoglobin 12.9 03/24/2023 Hematocrit 38.6 03/24/2023 MCV 92.3 03/24/2023 MCH 30.9 03/24/2023 MCHC 33.4 03/24/2023 RDW-CV 12.7 03/24/2023 Platelet Count 244 03/24/2023 MPV 10.1 03/24/2023 Neutrophils % 56.6 03/24/2023 Lymph% 24.5 03/24/2023 [place]% 7.4 03/24/2023 Eosin% 16.6 11/26/2022 Baso% 1.1 03/24/2023 Abs Neut (Segs + Bands) 3.77 03/24/2023 Abs [place] 0.49 03/24/2023 Abs Eosin 0.66 03/24/2023 Abs [...] which included preparing to see the patient, xnxe-mp-sxuh patient care, completing clinical documentation, performing a medically appropriate examination, counseling and educating the patient/family/caregiver, ordering medications, tests, or p rocedures, communicating results to the patient/family/caregiver, and care coordination (not separately reported). Electronically Signed: Sally Schneider CNP July 02, [address] Mary Hospital08-01-2023 Miscellaneous Notes* Telephone Encounter - Zaida [...] schedule with a CF doctor. Dr. Pete's [place] schedule does not have an opening until mid August. Patient will see Dr. Kilgore if necessary ad possible as well. Please give patient a call to schedule [facility]. documented in this encounterMount St. Mary Hospital07-05-2023 History of Present illness Narrative* Jean [...] since 08/2022, 2nd best since transferring to [facility] a year ago) Complicated by chronic respiratory [...] done ---Following with Dr. Francis Ramirez at [facility], last seen 04/07/2023 Latest Reference [...] ---Referral to ENT for surgical eval. Appt [phone]. 8. Severe protein calorie malnutrition - continue ensures 9. Prior Invasive Pulmonary Aspergillus infection/Trichosporonosis - treated with voriconazole by ID independent marketing consultant Dr. Burke France in 2019 for [...] COVID-19 original vaccine, age 12+ yr, monovalent (Compliance 11-Infoflow - PURPLE TOP) 12/24/2020 01/21/2021 12/05/2021 COVID-19 vaccine, age 12+ yr, bivalent (Shopdeca) 12/04/2022 Haemophilus influenzae b (HbOC) vaccine, 4-dose [...] vaccine, quadrivalent, unspecified formulation 05/27/2012 novel influenza (T1U6-88) vaccine, PF 10/19/2009 pneumococcal (PCV13) vaccine, 13 [...] visit: 0 Prior exacerbation treatments per [facility] Procedures & IV/Oral Course: -12/15/95-12/23/95 Hospitalized [...] po X 2 weeks -11/13/2010 Hospital/surgery at [place]: Splenorenal shunt --- -03/13/2011 Home treatment Bactrim [...] related to cystic fibrosis (HCC) Liver disease senior care (current) use of insulin (HCC) Transfusion history [...] instructed twice daily. Blood-Glucose Meter,Continuous (DEXCOM G7 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 May repeat [...] tablet by mouth twice daily with meals. wgdtfdxelfb-robprdjxii-evbqzissa (TRIKAFTA) 100-50-75 mg(d) /150 mg (n) tablet [...] and PFTs LAST LAB RESULTS: ---Reviewed in [facility] CBC with diff: WBC 6.65 03/24/2023 RBC 4.18 03/24/2023 Hemoglobin 12.9 03/24/2023 Hematocrit 38.6 03/24/2023 MCV 92.3 03/24/2023 MCH 30.9 03/24/2023 MCHC 33.4 03/24/2023 RDW-CV 12.7 03/24/2023 Platelet Count 244 03/24/2023 MPV 10.1 03/24/2023 Neutrophils % 56.6 03/24/2023 Lymph% 24.5 03/24/2023 [place]% 7.4 03/24/2023 Eosin% 16.6 11/26/2022 Baso% 1.1 03/24/2023 Abs Neut (Segs + Bands) 3.77 03/24/2023 Abs [place] 0.49 03/24/2023 Abs Eosin 0.66 03/24/2023 Abs [...] 05/29/2018 10.3 06/25/2016 7.0 SPIROMETRY: Reviewed in [facility] SPIROMETRY BASELINE ONLY ([id number]) - ordered on 03/26/23 No textual results for order. ID: [id number] Name: JAY BARBER Race: White Ht: 62.01 in Wt: 89.29 lbs Age: 27 Gender: Male : 1995 Dx: Cystic Fibrosis - Unspecified. May include CFTR disorder. Smoking Hx: Non-smoker Doctor: SHE PETE Test Date: 06/04/2023 Site: [facility] SIVI: Kaylen Daigle PRE-BRONCH POST-BRONCH Pre LLN Pred ULN %Pred Post %Pred %Chg SPIROMETRY FVC (L) 2.77 2.85 3.66 4.48 75 FEV1 (L) 0.92 2.44 3.14 3.80 29 FEV1/FVC 0.33 0.75 0.86 0.95 38 PEF L/s (L/sec) 3.86 6.74 8.56 10.37 45 FEF50 (L/sec) 0.32 2.01 4.14 6.26 7 FIF50 (L/sec) 2.95 FEF50/FIF50 0.11 90-100 FIVC (L) 2.65 GLK81-28 (L/sec) 0.28 2.32 3.73 5.47 7 Time (sec) 14.66 FET PEF (sec) 0.04 MACIEL (L) 0.02 Vol Extrap % (%) 1 SPIROMETRY BASELINE ONLY ([id number]) - ordered on 03/19/23 No textual results for order. ID: [id number] Name: JAY BARBER Race: White Ht: 62.01 in Wt: 90.39 lbs Age: 27 Gender: Male : 1995 Dx: Cystic fibrosis_ Smoking Hx: Non-smoker Doctor: SALLY SCHNEIDER Test Date: 03/19/2023 Site: [employer]: Kaylen Daigle PRE-BRONCH POST-BRONCH Pre LLN Pred ULN %Pred Post %Pred %Chg SPIROMETRY FVC (L) 2.39 3.28 4.07 4.87 58 FEV1 (L) 0.80 2.75 3.44 4.11 23 FEV1/FVC 0.34 0.73 0.84 0.94 39 PEF L/s (L/sec) 3.54 6.74 8.55 10.37 41 FEF50 (L/sec) 0.28 2.02 4.15 6.27 6 FIF50 (L/sec) 2.97 FEF50/FIF50 0.10 90-100 FIVC (L) 2.38 UDB92-51 (L/sec) 0.24 2.33 3.74 5.48 6 Time (sec) 14.38 FET PEF (sec) 0.04 MACIEL (L) 0.02 Vol Extrap % (%) 1 SPIROMETRY BASELINE ONLY ([id number]) - ordered on 03/05/23 No textual results for order. ID: [id number] Name: JAY BARBER Race: White Ht: 62.01 in Wt: 86.86 lbs Age: 27 Gender: Male : 1995 Dx: Cystic Fibrosis - Unspecified. May include CFTR disorder. Smoking Hx: Non-smoker Doctor: SHE PETE Test Date: 03/05/2023 Site: [employer]: Kaylen Daigle PRE-BRONCH POST-BRONCH Pre LLN Pred ULN %Pred Post %Pred %Chg SPIROMETRY FVC (L) 2.43 3.28 4.07 4.87 59 FEV1 (L) 0.86 2.75 3.44 4.11 24 FEV1/FVC 0.35 0.73 0.85 0.94 41 PEF L/s (L/sec) 3.95 6.74 8.55 10.37 46 FEF50 (L/sec) 0.33 2.02 4.15 6.27 8 FIF50 (L/sec) 3.13 FEF50/FIF50 0.11 90-100 FIVC (L) 2.14 ZFL17-73 (L/sec) 0.25 2.33 3.74 5.48 6 Time (sec) 14.16 FET PEF (sec) 0.04 MACIEL (L) 0.02 Vol Extrap % (%) 1 SPIROMETRY BASELINE ONLY ([id number]) - ordered on 12/04/22 ID: [id number] Name: JAY BARBER Race: White Ht: 62.01 in Wt: 89.51 lbs Age: 27 Gender: Male : 1995 Dx: Cystic fibrosis_ Smoking Hx: Non-smoker Doctor: SHE PETE Test Date: 12/04/2022 Site: [facility] Tech: Kaylen Daigle PRE-BRONCH POST-BRONCH Pre LLN Pred ULN %Pred Post %Pred %Chg SPIROMETRY FVC (L) 2.16 3.29 4.08 4.88 52 FEV1 (L) 0.75 2.75 3.44 4.11 21 FEV1/FVC 0.35 0.73 0.85 0.94 40 PEF L/s (L/sec) 3.59 6.73 8.55 10.37 41 FEF50 (L/sec) 0.24 2.03 4.16 6.28 5 FIF50 (L/sec) 2.45 FEF50/FIF50 0.10 90-100 FIVC (L) 2.04 SSX22-70 (L/sec) 0.20 2.34 3.75 5.49 5 Time (sec) 14.92 FET PEF (sec) 0.04 MACIEL (L) 0.02 Vol Extrap % (%) 1 Comments: ATS/ERS acceptability and repeatability standards for spirometry met. //KS SPIROMETRY BASELINE ONLY ([id number]) - ordered on 11/20/22 PRE-BRONCH POST-BRONCH Pred LLN ULN Actual %Pred Actual %Chng SPIROMETRY FVC (L) 4.08 3.29 4.88 2.34 57 FEV1 (L) 3.44 2.75 4.11 0.82 23 FEV1/FVC 0.85 0.73 0.94 0.35 41 FEF25 (L/sec) 0.54 FEF50 (L/sec) 4.16 2.03 6.28 0.27 6 FEF75 (L/sec) 1.51 0.80 2.67 0.10 6 GSW09-81 (L/sec) 3.75 2.34 5.50 0.22 5 PEF L/s (L/sec) 8.55 6.73 10.37 3.81 44 FIVC (L) 2.25 FIF50 (L/sec) 2.88 PIF (L/sec) 3.14 Time (sec) 14.45 MACIEL (L) 0.02 FET PEF (sec) 0.04 SPIROMETRY BASELINE ONLY ([id number]) - ordered on 11/05/22 PRE-BRONCH POST-BRONCH Pred LLN ULN Actual %Pred Actual %Chng SPIROMETRY FVC (L) 4.08 3.29 4.88 1.72 42 FEV1 (L) 3.44 2.75 4.11 0.62 17 FEV1/FVC 0.85 0.73 0.94 0.36 42 FEF25 (L/sec) 0.42 FEF50 (L/sec) 4.16 2.04 6.28 0.22 5 FEF75 (L/sec) 1.51 0.80 2.68 0.10 6 NSN14-00 (L/sec) 3.75 2.34 5.50 0.17 4 PEF L/s (L/sec) 8.55 6.73 10.37 2.68 31 FIVC (L) 1.30 FIF50 (L/sec) 2.06 PIF (L/sec) 2.06 Time (sec) 13.10 MACIEL (L) 0.03 FET PEF (sec) 0.07 MICROBIOLOGY: Reviewed MICROBIOLOGY SNAPSHOT Written and verbal health teaching given to patient, patient verbalizes understanding and agrees with treatment plan. Electronically Signed: Jean Pierre Kilgore MD, FRANCI, FACP [facility] [place] [facility] Adult CF Patients [phone]. Adult patients use option #2 Bronchiectasis (Non-CF) Patients [phone] [employer]orer [place]: Nell Lozano [phone] Email: jose Office: [phone] June 04, 2023 MICROBIOLOGY: Reviewed MICROBIOLOGY SNAPSHOT 03/05/2023 Culture Few Burkholderia cepacia complex Abnormal Many normal respiratory vicky Abnormal No Pseudomonas aeruginosa isolated. No Staphylococcus aureus isolated. Hx MRSA within the last year Electronically Signed: Jean Pierre Kilgore MD, FRANCI, FACP [facility] [place] [facility] Adult CF Patients [phone]. Adult patients use option #2 Bronchiectasis (Non-CF) Patients [phone] [employer]orer [place]: Nell Lozano [phone] Email: [email or web address] Office: [phone] March 05, [address] [facility]07-05-2023 History of Present illness Narrative* Kaylen Solomon - 06/04/2023 3:36 PM EDT PULM FUNCTION SMARTBLOCK: Provider: Jean Pierre Kilgore MD Spirometry: 1 documented [address] [facility]07-03-2023 Miscellaneous Notes* Telephone Encounter - Zaida Santos RN - 06/02/2023 4:12 PM EDT Called patient regarding abdominal xray results. Patient states he had not been taking Miralax thispast week as he should. Educated patient to start taking Miralax again as he has done previously (2to 3 times a day). No further questions/concerns from patient at this time. documented in this encounterMount St. [facility]07-03-2023 History of Present illness Narrative* Radha [...] 02, 2023 3:02 PM documented in this encounterMount St. 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 05/19 Fernando called him to /[facility] improving Other issues: Plan for visit: culture documented in this encounterMount St. [facility]06-28-2023 Miscellaneous Notes* Telephone Encounter - Daniel Goel - 05/28/2023 11:46 AM EDT Patient called requesting a follow-up appointment with Dr. Pete or Dr. Kilgore. Admin has sent a message to schedulers to contact patient for an appointment. [phone] [facility]06-19-2023 Miscellaneous Notes* Telephone Encounter - Fernando [...] reassess Fernando Zhang RD documented in this encounterMount St. [facility]05-08-2023 Instructions* Patient Instructions* Stephie Ramirez APRN.ARIAS [...] an additional 3 Units. documented [address] [facility]05-08-2023 History of Present illness Narrative* Stephie [...] results in care everywhere, 01/2020: labs in [facility], 07/2020; Alkaline Phosphatase 725 (45-117), ALT 77 (16-61), AST 163 (15-37), 12/2020: results in care everywhere., 03/2021: results In care everywhere, 12/2021: Alkaline Phosphatase 918 (38-113), bone percent 13.9%, liver percent 86.1 , 12/2022: liver function monitored by CF providers, 03/2023: in [facility] Dilated Eye Exam: Patient educated to have ophthalmology visits at least once a year. 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 08/2013: New patient visit for Cystic Fibrosis related Diabetes Previous diabetes related labs from 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 Blood-Glucose Meter,Continuous (DEXCOM G7 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 May repeat [...] tablet by mouth twice daily with meals. natxalnvqwd-ndnqvnhsiy-xqynuyomu (TRIKAFTA) 100-50-75 mg(d) /150 mg (n) tablet [...] changes. Stephie Ramirez APRN.ARIAS documented in this encounterMount St. [facility]05-08-2023 History of Present illness Narrative* Stephie [...] results in care everywhere, 01/2020: labs in [facility], 07/2020; Alkaline Phosphatase 725 (45-117), ALT 77 (16-61), AST 163 (15-37), 12/2020: results in care everywhere., 03/2021: results In care everywhere, 12/2021: Alkaline Phosphatase 918 (38-113), bone percent 13.9%, liver percent 86.1 , 12/2022: liver function monitored by CF providers, 03/2023: in [facility] Dilated Eye Exam: Patient educated to have ophthalmology visits at least once a year. 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 08/2013: New patient visit for Cystic Fibrosis related Diabetes Previous diabetes related labs from [facility] and [facility]-everywhere systems reviewed prior to today's office visit. [...] related to cystic fibrosis (HCC) Liver disease senior care (current) use of insulin (HCC) Transfusion history [...] Puff as instructed twice daily. Blood-Glucose Meter,Continuous ([employer] G7 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 May repeat [...] tablet by mouth twice daily with meals. nguugmpbggu-nyxsantjbm-immnmtcer (TRIKAFTA) 100-50-75 mg(d) /150 mg (n) tablet [...] this visit. Physical Exam documented in this [facility]05-02-2023 Nurse Note* Sissy Calhoun RN - 04/01/2023 3:07 PM EDT PICC line removed. Flushed with 10ml NS prior 41cm intact. Pt states no complaints at this time. documented in this [facility]04-28-2023 Nurse Note* Peewee Vela RN - 03/28/2023 4:31 PM EDT Stop copat, picc line removal ordered by pulm service. Orders relayed to [facility]. Peewee Vela RN documented in this [facility]04-26-2023 History of Present illness Narrative* She Pete, [...] how he feels next week --> [facility] - [phone] - left upper extremity PICC intact, skin [...] ---Referral to ENT for surgical eval. Appt [phone]. Severe protein calorie malnutrition - continue ensures - to see Fernando today Prior Invasive Pulmonary Aspergillus infection/Trichosporonosis - treated with voriconazole by ID independent marketing consultant Dr. Burke France in 2020 for [...] done ---Following with Dr. 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 qvgipklecxo-wctlhcfszl-yvutbasqe (TRIKAFTA) 100-50-75 mg(d) /150 mg (n) tablet [...] (BAQSIMI) 3 mg/actuation nasal spray Use 1 [place] in the nose as needed. May repeat [...] recent EKG LAST LAB RESULTS: ---Reviewed in [facility] CBC with diff: WBC 6.65 03/24/2023 RBC 4.18 03/24/2023 Hemoglobin 12.9 03/24/2023 Hematocrit 38.6 03/24/2023 MCV 92.3 03/24/2023 MCH 30.9 03/24/2023 MCHC 33.4 03/24/2023 RDW-CV 12.7 03/24/2023 Platelet Count 244 03/24/2023 MPV 10.1 03/24/2023 Neutrophils % 56.6 03/24/2023 Lymph% 24.5 03/24/2023 [place]% 7.4 03/24/2023 Eosin% 16.6 11/26/2022 Baso% 1.1 03/24/2023 Abs Neut (Segs + Bands) 3.77 03/24/2023 Abs [place] 0.49 03/24/2023 Abs Eosin 0.66 03/24/2023 Abs [...] which included preparing to see the patient, eljd-gg-dtcq patient care, completing clinical documentation, obtaining and/or reviewing separately obtained history, performing a medically appropriate examination, ordering medications, tests, or procedures, communicating with other HCPs (not separately reported), and care coordination (not separately reported). Electronically Signed: She Pete DO March 19, 20[address] [address] Nurse Note* Lou Westbrook RN - 03/20/2023 2:53 PM EDT Order received from Dr Michel to extend COPAT until 03/28. Call placed to [facility] to update on extension. Verbal given to Sissy. documented in this encounterMount [facility]. [facility]04-[facility]-2023 Miscellaneous Notes* Telephone Encounter - Anabel [...] of relapse in his symptoms. His CF weigher bulker, Dr. Pete, would like to extend his Copat to 03/28. I relayed that I thought this was reasonable. Since the CF team is following so closely, I told himwe could cancel the Friday appointment. Plan: I will extend his copat to 03/28. Anabel Michel MD Infectious Disease documented in this encounterMount [facility]. [facility]04-20-2023 Miscellaneous Notes* Telephone Encounter - Daniel Goel - 03/20/2023 1:40 PM EDT Received call from Demetrius with [facility] looking for clarification. Would it be appropriate to send an order for pre medication IV Benadryl to take before Vancomycin? Okay to leave a message if appropriate [phone] [facility]04-20-2023 History of Present illness Narrative* Fernando [...] BID CFRD: Present, follows with endo at [facility] CGM: Dexcom G7 Insulin regimen: Basaglar 8 units HS and humalog with meals Oral diabetic agents: none DEXA: Needs Low bone density on [place] DEXA in 2019 GI Symptoms: Reports no [...] kg (actual body weight) Estimated Calorie Needs: 2070-8954 (40-50 kcal/kg) Estimated Protein Needs: 62-82 (1.5-2.0 g/kg IBW) Estimated Fluid Needs: 1775-9058 (1mL/kcal) Activity: Activities of Daily Living: Active [...] Barber DATE: 03/20/2023 TIME: 12:13 PM PAGER: [phone] [address] 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 Recommendations include: 30 minutes, 3-5 X weekly and a goal of 150 minutes/week 7. EDUCATION/OTHER: ZephyRX: 8. SUMMARY: Pt starting using Duoneb Friday due to illness. Pt encouraged to get regular exercise 3-5 time per week. documented in this encounterMount [facility]. [facility]04-17-2023 History of Present illness Narrative* She Pete, DO - 03/17/2023 9:55 AM EDT CF Pre-Clinic Checklist PRE-TRANSPLANT Last CF clinic visit date: 03/05/2023 Dr. Kilgore Microbiology: MRSA B Cepacia complex (vietnamiensis) Pseudomonas Mutations: B803nkg & 1898+1G>Q Other medical complications: ---Advanced stage [...] ready for transplant referral? documented in this encounterMount [facility]. [facility]04-06-2023 Miscellaneous Notes* Telephone Encounter - PRABHA [...] bed, etc. Admin transferred to the transfer machine operator who took ownership of his admission. documented in this encounterMount [facility]. [facility]04-06-2023 Miscellaneous Notes* Telephone Encounter - Alex [...] current clean out scheduled this weekend at [facility]. I gave him my email address and work number so he could contact me when ready. He was amenable to this plan. He expressed his appreciation for the call and knowing that such resources were more easily accessible than he had thought. Alex Pinon MD March 06, 2023 1:22 PM documented in this encounterMount [facility]. [facility]04-05-2023 History of Present illness Narrative* Jean [...] ---Referral to ENT for surgical eval. Appt [phone]. CYSTIC FIBROSIS RELATED DIABETES ---The standard medical therapy for CFRD is subcutaneous insulin (oral diabetic agents should not be used); ---Patient currently on insulin therapy. ---Self monitored blood glucose 3 times per day ---Most recent hgA1c noted. ---Following with Dr. Francis Ramirez at [place] [facility], last seen 12/20/2022 Severe protein calorie malnutrition - continue ensures - will have fernando follow-up with him Prior Invasive Pulmonary Aspergillus infection/Trichosporonosis - treated with voriconazole by ID independent marketing consultant Dr. 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 May repeat [...] Take 10 mg by mouth once daily. csgfjkpngqp-swvejgigdk-arewiffzt (TRIKAFTA) 100-50-75 mg(d) /150 mg (n) tablet [...] recent labs LAST LAB RESULTS: ---Reviewed in [facility] Latest Reference Range & Units 07/17/22 [...] Neutrophils % 65.6 02/26/2023 Lymph% 21.0 02/26/2023 [place]% 7.8 02/26/2023 Eosin% 16.6 11/26/2022 Baso% 1.5 02/26/2023 Abs Neut (Segs + Bands) 3.03 02/26/2023 Abs [place] 0.36 02/26/2023 Abs Eosin 0.17 02/26/2023 Abs [...] 05/29/2018 10.3 06/25/2016 7.0 SPIROMETRY: Reviewed in [facility] ID: [id number] Name: JAY BARBER Race: White Ht: 62.01 in Wt: 86.86 lbs Age: 27 Gender: Male : 1995 Dx: Cystic Fibrosis - Unspecified. May include CFTR disorder. Smoking Hx: Non-smoker Doctor: SHE PETE Test Date: 03/05/2023 Site: [facility]: Kaylen Daigle PRE-BRONCH POST-BRONCH Pre LLN Pred ULN %Pred Post %Pred %Chg SPIROMETRY FVC (L) 2.43 3.28 4.07 4.87 59 FEV1 (L) 0.86 2.75 3.44 4.11 24 FEV1/FVC 0.35 0.73 0.85 0.94 41 PEF L/s (L/sec) 3.95 6.74 8.55 10.37 46 FEF50 (L/sec) 0.33 2.02 4.15 6.27 8 FIF50 (L/sec) 3.13 FEF50/FIF50 0.11 90-100 FIVC (L) 2.14 HDH30-72 (L/sec) 0.25 2.33 3.74 5.48 6 Time (sec) 14.16 FET PEF (sec) 0.04 MACIEL (L) 0.02 Vol Extrap % (%) 1 SPIROMETRY BASELINE ONLY ([id number]) - ordered on 12/04/22 ID: [id number] Name: JAY BARBER Race: White Ht: 62.01 in Wt: 89.51 lbs Age: 27 Gender: Male : 1995 Dx: Cystic fibrosis_ Smoking Hx: Non-smoker Doctor: SHE PETE Test Date: 12/04/2022 Site: [facility] Tech: Kaylen Daigle PRE-BRONCH POST-BRONCH Pre LLN Pred ULN %Pred Post %Pred %Chg SPIROMETRY FVC (L) 2.16 3.29 4.08 4.88 52 FEV1 (L) 0.75 2.75 3.44 4.11 21 FEV1/FVC 0.35 0.73 0.85 0.94 40 PEF L/s (L/sec) 3.59 6.73 8.55 10.37 41 FEF50 (L/sec) 0.24 2.03 4.16 6.28 5 FIF50 (L/sec) 2.45 FEF50/FIF50 0.10 90-100 FIVC (L) 2.04 PRH24-03 (L/sec) 0.20 2.34 3.75 5.49 5 Time (sec) 14.92 FET PEF (sec) 0.04 MACIEL (L) 0.02 Vol Extrap % (%) 1 Comments: ATS/ERS acceptability and repeatability standards for spirometry met. //KS SPIROMETRY BASELINE ONLY ([id number]) - ordered on 11/20/22 PRE-BRONCH POST-BRONCH Pred LLN ULN Actual %Pred Actual %Chng SPIROMETRY FVC (L) 4.08 3.29 4.88 2.34 57 FEV1 (L) 3.44 2.75 4.11 0.82 23 FEV1/FVC 0.85 0.73 0.94 0.35 41 FEF25 (L/sec) 0.54 FEF50 (L/sec) 4.16 2.03 6.28 0.27 6 FEF75 (L/sec) 1.51 0.80 2.67 0.10 6 KVC13-83 (L/sec) 3.75 2.34 5.50 0.22 5 PEF L/s (L/sec) 8.55 6.73 10.37 3.81 44 FIVC (L) 2.25 FIF50 (L/sec) 2.88 PIF (L/sec) 3.14 Time (sec) 14.45 MACIEL (L) 0.02 FET PEF (sec) 0.04 SPIROMETRY BASELINE ONLY ([id number]) - ordered on 11/05/22 PRE-BRONCH POST-BRONCH Pred LLN ULN Actual %Pred Actual %Chng SPIROMETRY FVC (L) 4.08 3.29 4.88 1.72 42 FEV1 (L) 3.44 2.75 4.11 0.62 17 FEV1/FVC 0.85 0.73 0.94 0.36 42 FEF25 (L/sec) 0.42 FEF50 (L/sec) 4.16 2.04 6.28 0.22 5 FEF75 (L/sec) 1.51 0.80 2.68 0.10 6 QKI32-27 (L/sec) 3.75 2.34 5.50 0.17 4 PEF L/s (L/sec) 8.55 6.73 10.37 2.68 31 FIVC (L) 1.30 FIF50 (L/sec) 2.06 PIF (L/sec) 2.06 Time (sec) 13.10 MACIEL (L) 0.03 FET PEF (sec) 0.07 MICROBIOLOGY: Reviewed MICROBIOLOGY SNAPSHOT 11/05/2022 Moderate Methicillin resistant Staphylococcus aureus Abnormal Alex PBP2a SA Culture [place] Test PBP2a was detected by an immunochromatographic assay. PBP2a is encoded for by the mecA gene. This isolate is methicillin-resistant. Few Burkholderia cepacia complex Abnormal No Pseudomonas aeruginosa isolated. CF Pulmonary Exacerbation (MRSA, B Cepacia complex- vietnamiensis), moderate Failed PO Bactrim DS PO BID, Levofloxacin 750mg daily (took for 5 days) Continue [facility] Plan for inpatient admission with PICC [...] Signed: Jean Pierre Kilgore MD, FRANCI, FACP [facility] Respiratory [place] [facility] Adult CF Patients [phone]. Adult patients use option #2 Bronchiectasis (Non-CF) Patients [phone] [employer] [place]: Nell Lozano [phone] Email: [email or web address] Office: [phone] March 05, [address] [facility]04-05-2023 History of Present illness Narrative* Kaylen Solomon - 03/05/2023 3:53 PM EDT PULM FUNCTION SMARTBLOCK: Provider: Jean Pierre Kilgore MD Spirometry: [address] [facility]03-29-2023 History of Present illness Narrative* Jean [...] ---Referral to ENT for surgical eval. Appt [phone]. CYSTIC FIBROSIS RELATED DIABETES ---The standard medical therapy for CFRD is subcutaneous insulin (oral diabetic agents should not be used); ---Patient currently on insulin therapy. ---Self monitored blood glucose 3 times per day ---Most recent hgA1c noted. ---Following with Dr. 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 May repeat [...] tablet by mouth twice daily with meals. mavfbyymcxh-kczixuseur-cphylfkgm (TRIKAFTA) 100-50-75 mg(d) /150 mg (n) tablet [...] recent labs LAST LAB RESULTS: ---Reviewed in [facility] CBC with diff: WBC 10.30 12/03/2022 RBC 3.80 12/03/2022 Hemoglobin 11.9 12/03/2022 Hematocrit 34.0 12/03/2022 MCV 89.5 12/03/2022 MCH 31.3 12/03/2022 MCHC 35.0 12/03/2022 RDW-CV 13.9 12/03/2022 Platelet Count 214 12/03/2022 MPV 9.7 12/03/2022 Neutrophils % 39.5 12/03/2022 Lymph% 35.0 12/03/2022 [place]% 9.5 12/03/2022 Eosin% 16.6 11/26/2022 Baso% 0.7 12/03/2022 Abs Neut (Segs + Bands) 4.08 12/03/2022 Abs [place] 0.98 12/03/2022 Abs Eosin 1.54 12/03/2022 Abs [...] 05/29/2018 10.3 06/25/2016 7.0 SPIROMETRY: Reviewed in [facility] SPIROMETRY BASELINE ONLY ([id number]) - ordered on 12/04/22 ID: [id number] Name: JAY BARBER Race: White Ht: 62.01 in Wt: 89.51 lbs Age: 27 Gender: Male : 1995 Dx: Cystic fibrosis_ Smoking Hx: Non-smoker Doctor: SHE PETE Test Date: 12/04/2022 Site: [facility]: Kaylen Daigle PRE-BRONCH POST-BRONCH Pre LLN Pred ULN %Pred Post %Pred %Chg SPIROMETRY FVC (L) 2.16 3.29 4.08 4.88 52 FEV1 (L) 0.75 2.75 3.44 4.11 21 FEV1/FVC 0.35 0.73 0.85 0.94 40 PEF L/s (L/sec) 3.59 6.73 8.55 10.37 41 FEF50 (L/sec) 0.24 2.03 4.16 6.28 5 FIF50 (L/sec) 2.45 FEF50/FIF50 0.10 90-100 FIVC (L) 2.04 JQZ84-41 (L/sec) 0.20 2.34 3.75 5.49 5 Time (sec) 14.92 FET PEF (sec) 0.04 MACIEL (L) 0.02 Vol Extrap % (%) 1 Comments: ATS/ERS acceptability and repeatability standards for spirometry met. //KS SPIROMETRY BASELINE ONLY ([id number]) - ordered on 11/20/22 PRE-BRONCH POST-BRONCH Pred LLN ULN Actual %Pred Actual %Chng SPIROMETRY FVC (L) 4.08 3.29 4.88 2.34 57 FEV1 (L) 3.44 2.75 4.11 0.82 23 FEV1/FVC 0.85 0.73 0.94 0.35 41 FEF25 (L/sec) 0.54 FEF50 (L/sec) 4.16 2.03 6.28 0.27 6 FEF75 (L/sec) 1.51 0.80 2.67 0.10 6 EIW91-97 (L/sec) 3.75 2.34 5.50 0.22 5 PEF L/s (L/sec) 8.55 6.73 10.37 3.81 44 FIVC (L) 2.25 FIF50 (L/sec) 2.88 PIF (L/sec) 3.14 Time (sec) 14.45 MACIEL (L) 0.02 FET PEF (sec) 0.04 SPIROMETRY BASELINE ONLY ([id number]) - ordered on 11/05/22 PRE-BRONCH POST-BRONCH Pred LLN ULN Actual %Pred Actual %Chng SPIROMETRY FVC (L) 4.08 3.29 4.88 1.72 42 FEV1 (L) 3.44 2.75 4.11 0.62 17 FEV1/FVC 0.85 0.73 0.94 0.36 42 FEF25 (L/sec) 0.42 FEF50 (L/sec) 4.16 2.04 6.28 0.22 5 FEF75 (L/sec) 1.51 0.80 2.68 0.10 6 JTX31-92 (L/sec) 3.75 2.34 5.50 0.17 4 PEF [...] No Call if symptoms worsen F/U in [place] next week with Dr. Kilgore Lung Function [...] RTC: [address] Kilgore at [place] with spirometry Jean Pierre Kilgore MD Written and verbal health teaching given to patient, patient verbalizes understanding and agrees with treatment plan. Electronically Signed: Dr Kilgore February 26, 2023 [address] [facility]03-20-2023 Miscellaneous Notes* Telephone Encounter - Daniel Goel - 02/17/2023 11:34 AM EDT Patient called office regarding a follow-up appointment with Dr. Kilgore. Message has been sent to the schedulers to reach out to the patient with Dr. Kilgore first availableappointment. documented in this encounterMount [facility]. [facility]02-13-2023 History of Present illness Narrative* She Pete, DO - 01/13/2023 11:44 AM EST CF Pre-Clinic Checklist PRE-TRANSPLANT Last CF clinic visit date: 12/04/[address] Kilgore Microbiology: MRSA B Cepacia complex (nova) Pseudomonas Mutations: H088eaq & 1898+1G>Q Other medical complications: ---Advanced stage [...] - ?f/up with hepatology? documented in this encounterMount [facility]. [facility]02-03-2023 Miscellaneous Notes* Telephone Encounter - IVFXPERT Insurance Spec - 01/03/2023 9:25 AM EST authorization forms faxed to you as requested to [phone] * Telephone Encounter - NightOwl Spec - 01/03/2023 8:11 AM EST Good morning, I received your message to call you regarding the authorizations for this patient. I have tried calling you a couple times, I understand you are with patients. Please call me back at [phone] at your convenience so I can answer any questions you may have. Thanks. * Telephone Encounter - NightOwl Spec - 12/30/2022 12:36 PM EST Patient's [employer] insurance requires a prior authorization for their [...] form. I can either e-mail to a [employer] e-mail address or send via fax. Once completed, simply return the signed form to Samra Lino at fax [phone] or via [facility] e-mail at [email or web address] . Thank you for your prompt attention to this matter. Samra HahnInventalator Insurance Spec documented in this encounterMount St. [facility]01-24-2023 Miscellaneous Notes* Telephone Encounter - Samra HahnInventalator Insurance Spec - 12/24/2022 8:14 AM EST Good morning, I am looking for the status of the signed [facility] authorization form for patients copat extension for [...] in advance. * Telephone Encounter - Samra ThorntonDesi Hits Insurance Spec - 11/26/2022 2:14 PM EST Looks like there is copat extension on the iv atbs vancomycin, meropenem, benadryl. We will need new signatures on authorization forms to request addtitional days of the iv medications. I will fax the forms to you at [phone]. Please sign all 3 forms and fax them back to me at [phone] so I can complete our authorization process. Thanks in advance * Telephone Encounter - Samra Edmonds Insurance Spec - 11/12/2022 1:04 PM EST emailed as requested * Telephone Encounter - Samra Edmonds Insurance Spec - 11/12/2022 9:56 AM EST Patient's [employer] insurance requires a prior authorization for their Vancomycin 750mg IV every 12 hours ,Meropenem 1.5gm IV every 8 hours ,Benadryl 50mg B36Sviye I have completed the necessary prior authorization form , all that is required is review and signature by prescribing provider. Please advise which method will be the easiest / fastest way for the office to receive and process the prior authorization form. I can either e-mail to a [employer] e-mail address or send via fax. Once completed, simply return the signed form to Samra Lino at fax [phone] or via [facility] e-mail at . Thank you for your prompt attention to this matter. Samra Hahna Insurance Spec documented in this encounterMount St. [facility]01-20-2023 Instructions* Patient Instructions* Stephie Ramirez APRN.ARIAS - 12/20/2022 1:31 PM EST Look into omnipod 5 and Tslim control IQ documented in this encounterMount St. [facility]01-20-2023 History of Present illness Narrative* Stephie [...] results in care everywhere, 01/2020: labs in [facility], 07/2020; Alkaline Phosphatase 725 (45-117), ALT 77 [...] related Diabetes Previous diabetes related labs from [facility] reviewed prior to today's office visit. 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 fxjaxmcztgp-xneulwsvxp-qfbfdnrvr (TRIKAFTA) 100-50-75 mg(d) /150 mg (n) tablet [...] about 30 total units a day Insulin [place], Disposable, (BD ULTRA-FINE YARON PEN NEEDLE) 32 gauge x 5/32 5x/day glucagon (BAQSIMI) 3 mg/actuation nasal spray Use 1 [place] in the nose as needed. May repeat [...] changes. Stephie Ramirez APRN.ARIAS documented in this encounterMount St. [facility]01-20-2023 History of Present illness Narrative* Stephie [...] results in care everywhere, 01/2020: labs in [facility], 07/2020; Alkaline Phosphatase 725 (45-117), ALT 77 [...] related Diabetes Previous diabetes related labs from [facility] reviewed prior to today's office visit. Any changes made at our last diabetes management visit were abstracted accordingly (if applicable). Today's Office Visit: Note: last Follow up was 12/2021, reviewed importance of routine, generally every 3 month Follow ups self monitoring blood glucose data: see dexcom report. 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 ybgktwrztky-qhqebxxeoi-qxtzuksyc (TRIKAFTA) 100-50-75 mg(d) /150 mg (n) tablet [...] about 40 total units a day Insulin [place], Disposable, (BD ULTRA-FINE YARON PEN NEEDLE) 32 gauge x 5/32 5x/day glucagon (GLUCAGON EMERGENCY KIT, HUMAN,) 1 mg injection use as directed if needed for SIGNIFICANT LOW BLOOD SUGAR EVENT CREON 36,000-114,000- 180,000 unit capsule Take 3 capsules by mouth. With every meal Objective There were no vitals taken for this visit. Physical Exam documented in this encounterMount St. [facility]-18-2023 Miscellaneous Notes* Telephone Encounter - Nell Lozano - 12/18/2022 10:06 AM EST Medication: Trikafta Date Submitted: December 13, 2022 Prescribing Provider: Tamara Method of Submission: covermymeds Outcome: Approved 12/13/2022-12/12/2023 Outcome Date: December 14, 2022 Nell Lozano documented in this encounterMount St. Mary Hospital01-06-2023 Miscellaneous Notes* Telephone Encounter - Corey Del Real - 12/06/2022 8:49 AM EST I called and spoke with Jay. The following appointment has been made for this patient: Date: 01/13/2023 Status: Scheduled Arrive By: 3:30 PM Time: 3:40 PM Length: 40 Visit Type: EST KIDNEY MED [[id number]] Copay: $0.00 Provider: Sanna Bowers APRN.CNP Department: KIDNEY MED [facility] Provider Title: Dept Ordering Physician: Department Address: [address] [facility] [address] Corey Del Real ----- Message from Karlene [...] with nephrology Sadiq Soler documented in this encounterMount St. Mary [facility]01-04-2023 Instructions* Patient Instructions* Jean Pierre Kilgore MD - 12/04/2022 5:09 PM EST Get labs tomorrow as ordered. Stop the IV fluids at night We'll get orders to [facility] to pull your PICC tomorrow Stop the minocycline Start the Cayston once you receive it Let us know if you worsen Follow up with me in 3 weeks documented in this encounterMount [facility]. Mary Hospital01-04-2023 History of Present illness Narrative* Jean [...] requiring IV abx after being seen in [place] 11/05/22 with CFPEx(MRSA and B Cepacia) and influenza A requiring tamiflu. Was discharged on 11/11/22 with IV Vanc andIV Meropenem. Had PICC line placement on 11/07/2022. He was seen in [place] 11/20, where labs were increased to 2xweek, [...] ---Referral to ENT for surgical eval. Appt [phone]. CYSTIC FIBROSIS RELATED DIABETES ---The standard medical therapy for CFRD is subcutaneous insulin (oral diabetic agents should not be used); ---Patient currently on insulin therapy. ---Self monitored blood glucose 3 times per day ---Most recent hgA1c noted. ---Following with Dr. 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 Burke France in 2020 for [...] of yet Prior exacerbation treatments per [facility] Procedures & IV/Oral Course: -12/15/95-12/23/95 Hospitalized [...] because of thrombocytopenia -04/22/[address] 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 empwoxmhkxj-smzoaylnpy-wihedbghb (TRIKAFTA) 100-50-75 mg(d) /150 mg (n) tablet [...] about 40 total units a day Insulin [place], Disposable, (BD ULTRA-FINE YARON PEN NEEDLE) 32 [...] recent imaging LAST LAB RESULTS: ---Reviewed in [facility] CBC with diff: WBC 10.30 12/03/2022 RBC 3.80 12/03/2022 Hemoglobin 11.9 12/03/2022 Hematocrit 34.0 12/03/2022 MCV 89.5 12/03/2022 MCH 31.3 12/03/2022 MCHC 35.0 12/03/2022 RDW-CV 13.9 12/03/2022 Platelet Count 214 12/03/2022 MPV 9.7 12/03/2022 Neut% 39.5 12/03/2022 Lymph% 35.0 12/03/2022 Cibola% 9.5 12/03/2022 Eosin% 16.6 11/26/2022 Baso% 0.7 12/03/2022 Abs Neut (Segs + Bands) 4.08 12/03/2022 Abs Cibola 0.98 12/03/2022 Abs Eosin 1.54 12/03/2022 Abs [...] SPIROMETRY: Reviewed in EPIC SPIROMETRY BASELINE ONLY ([id number]) - ordered on 12/04/22 ID: [id number] Name: JAY BARBER Race: White Ht: 62.01 in Wt: 89.51 lbs Age: 27 Gender: Male : 1995 Dx: Cystic fibrosis_ Smoking Hx: Non-smoker Doctor: SHE PETE Test Date: 12/04/2022 Site: [facility] Tech: Kaylen Daigle PRE-BRONCH POST-BRONCH Pre LLN Pred ULN %Pred Post %Pred %Chg SPIROMETRY FVC (L) 2.16 3.29 4.08 4.88 52 FEV1 (L) 0.75 2.75 3.44 4.11 21 FEV1/FVC 0.35 0.73 0.85 0.94 40 PEF L/s (L/sec) 3.59 6.73 8.55 10.37 41 FEF50 (L/sec) 0.24 2.03 4.16 6.28 5 FIF50 (L/sec) 2.45 FEF50/FIF50 0.10 90-100 FIVC (L) 2.04 BAL94-48 (L/sec) 0.20 2.34 3.75 5.49 5 Time (sec) 14.92 FET PEF (sec) 0.04 MACIEL (L) 0.02 Vol Extrap % (%) 1 Comments: ATS/ERS acceptability and repeatability standards for spirometry met. //KS SPIROMETRY BASELINE ONLY ([id number]) - ordered on 11/20/22 PRE-BRONCH POST-BRONCH Pred LLN ULN Actual %Pred Actual %Chng SPIROMETRY FVC (L) 4.08 3.29 4.88 2.34 57 FEV1 (L) 3.44 2.75 4.11 0.82 23 FEV1/FVC 0.85 0.73 0.94 0.35 41 FEF25 (L/sec) 0.54 FEF50 (L/sec) 4.16 2.03 6.28 0.27 6 FEF75 (L/sec) 1.51 0.80 2.67 0.10 6 LIX33-63 (L/sec) 3.75 2.34 5.50 0.22 5 PEF L/s (L/sec) 8.55 6.73 10.37 3.81 44 FIVC (L) 2.25 FIF50 (L/sec) 2.88 PIF (L/sec) 3.14 Time (sec) 14.45 MACIEL (L) 0.02 FET PEF (sec) 0.04 SPIROMETRY BASELINE ONLY ([id number]) - ordered on 11/05/22 PRE-BRONCH POST-BRONCH Pred LLN ULN Actual %Pred Actual %Chng SPIROMETRY FVC (L) 4.08 3.29 4.88 1.72 42 FEV1 (L) 3.44 2.75 4.11 0.62 17 FEV1/FVC 0.85 0.73 0.94 0.36 42 FEF25 (L/sec) 0.42 FEF50 (L/sec) 4.16 2.04 6.28 0.22 5 FEF75 (L/sec) 1.51 0.80 2.68 0.10 6 HGP65-36 (L/sec) 3.75 2.34 5.50 0.17 4 PEF [...] PICC Will need to send orders to [facility] F/U in [place] 12/[address] Kilgore Call if symptoms [...] weeks, December [address] Kilgore at [place] with spirometry Jean Pierre Kilgore MD documented in this encounterMount St. Mary Hospital01-04-2023 History of Present illness Narrative* Kaylen Solomon - 12/04/2022 3:33 PM EST PULM FUNCTION SMARTBLOCK: Provider: She Pete DO Spirometry: 1 documented in [address] encounterMount [address]. Mary Hospital12-30-2022 Miscellaneous Notes* Telephone Encounter - She Pete DO - 11/29/2022 10:44 AM EST Called and left voicemail for patient to get labs drawn again as the CMP did not get drawn. Placed new orders for standing labs as well to ensure that the lab can see them She Pete DO documented in this encounterMount St. Mary Hospital12-30-2022 Nurse Note* Fern Schilling Asst I - 11/29/2022 9:55 AM EST Per orders of Dr.Holman koroma copat stop date of 11/29. Patient's to maintain picc. Repeat labs today and then next week. Message sent to Pharmacy. Fern Mac Adm Asst I documented in this encounterMount St. Mary Hospital12-28-2022 Miscellaneous Notes* Telephone Encounter - Samra [...] Spec - 11/19/2022 1:33 PM EST Patients [employer] insurance requires a prior authorization for their 0.9% Sodium Chloride 1000 ml Infuse 1000 ml daily for 4 days. I have faxed the authorization form to [phone] as per Nell. I have completed the necessary prior authorization form , all that is required is review and signature by prescribing provider along with notes stating need for the IVF . Once completed, simply return the signed form to Samra Lino at fax [phone] or via [employer] e-mail at . documented in this encounterMount St. Mary Hospital12-27-2022 Miscellaneous Notes* Telephone Encounter - Nell Lozano - 11/26/2022 11:43 AM EST Images from the original note were not included. * Telephone Encounter - Nell Lozano - 11/26/2022 11:39 AM EST Images from the original note were not included. Outside labs have been uploaded through [employer]. There may be a delay before report appears in Epic. documented in this encounterMount St. Mary Hospital12-22-2022 Miscellaneous Notes* Telephone Encounter - Luiza Rodriges MD - 11/21/2022 1:06 PM EST CF team has already addressed this documented in this [facility]12-21-2022 Nurse Note* Fern Watts Adm Asst I - 11/20/2022 10:10 AM EST Per orders of extend copat until 11/29. Message sent to Pharmacy. Fern Watts Adm Asst I documented in this encounterMount St. Mary Hospital12-21-2022 History of Present illness Narrative* Kaylen Pilo Solomon - 11/20/2022 8:15 AM EST PULM FUNCTION SMARTBLOCK: Provider: Sally Schneider APRN.TUNNEL WORKER Spirometry: 1 documented [address]Mount [address] Mary Hospital12-21-2022 History of Present illness Narrative* She [...] monitoring is being done and -------Labs in [facility] - from 11/18/2022 - slight rise in [...] ---Referral to ENT for surgical eval. Appt [phone]. CYSTIC FIBROSIS RELATED DIABETES ---The standard medical therapy for CFRD is subcutaneous insulin (oral diabetic agents should not be used); ---Patient currently on insulin therapy. ---Self monitored blood glucose 3 times per day ---Most recent hgA1c noted. ---Following with Dr. 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 ibuwgopxiee-cjwidovgbn-mimogutio (TRIKAFTA) 100-50-75 mg(d) /150 mg (n) tablet [...] about 40 total units a day Insulin [place]field, Disposable, (BD ULTRA-FINE YARON PEN NEEDLE) 32 [...] recent labs LAST LAB RESULTS: ---Reviewed in [facility] CBC with diff: WBC 8.4 08/06/2022 RBC 3.33 08/01/2022 Hemoglobin 11.5 08/06/2022 Hematocrit 34.3 08/06/2022 MCV 91.3 08/01/2022 MCH 31.2 08/01/2022 MCHC 34.2 08/01/2022 RDW-CV 13.2 08/01/2022 Platelet Count 422 08/06/2022 MPV 9.1 08/01/2022 Neut% 57.5 08/06/2022 Lymph% 9.8 07/29/2022 Cibola% 12.6 07/29/2022 Eosin% 7.9 08/06/2022 Baso% 0.4 07/29/2022 Abs Neut (Segs + Bands) 4.8 08/06/2022 Abs Cibola 1.28 07/29/2022 Abs Eosin 0.17 07/29/2022 Abs [...] which included preparing to see the patient, xbng-xv-siou patient care, completing clinical documentation, performing a medically appropriate examination, ordering medications, tests, or procedures, communicating with other HCPs (not separately reported), independently interpreting results (not separately reported), communicating results tothe patient/family/caregiver, and care coordination (not separately reported). Electronically Signed: She Pete DO November 20, 20[address] Mary Hospital12-19-2022 Miscellaneous Notes* Addendum Note - Miguelina [...] there. Dr. Pete notified. Miguelina Murray RN Underwriting Manager CF and Bronchiectasis Programs A110 * Telephone Encounter - Nell Lozano - 11/18/2022 12:41 PM EST Images from the original note were not included. Outside labs have been uploaded through [employer]. There may be a delay before report appears in Epic. documented in this encounterMount St. Mary Hospital12-19-2022 History of Present illness Narrative* Miguelina Murray RN - 11/18/2022 9:12 AM ESTSummary: New patient referral Images from the original note were not included. 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 Mary Hospital12-06-2022 History of Present illness Narrative* Sally Schneider APRN.TUNNEL WORKER - 11/05/2022 2:24 PM EST PULMONARY MEDICINE CYSTIC FIBROSIS PLAN OF CARE NOTE Please use the cystic fibrosis order set in [facility] to place the admission orders. The [...] Hale is the CF Consult Physician. P. [phone] Sally Schneider CNP CF RN TELE. p. [phone] Reason for admission: CF Pulmonary Exacerbation Desired [...] not use subq heparin documented in this encounterMount St. Mary Hospital12-05-2022 Miscellaneous Notes* Telephone Encounter - Nell [...] He is okay with coming up to [facility] for a PFT and an appointment with Sally to discuss starting iv abx and the possible need to start the abx in house before being discharged home with ivs. Patient is scheduled to come to [facility] tomorrow. * Telephone Encounter - PRABHA Pitt - 11/04/2022 2:22 PM EST Patient called requesting appointment with CF doctor. documented in this encounterMount St. Mary Hospital10-26-2022 Miscellaneous Notes* Telephone Encounter - Daniel Yu RN - 09/25/2022 1:42 PM EDT Pharmacy called requesting the following refill. Requested Prescriptions Pending Prescriptions Disp Refills vtirdeemmhh-tnqevjujhy-optmtfadw (TRIKAFTA) 100-50-75 mg(d) /150 mg (n) tablet 84 Each 1 Sig: Take 2 tablets by mouth every 48 hours. Take 2 orange tablets on even number days. Then take 1tablet on Odd number days. Discard blue tablets. DO NOT crush, chew, or open. Patient Phone numbers: [phone] (home) Request is for script(s) to be escript to pharmacy. Daniel Yu RN documented in this encounterMount St. Mary Hospital10-12-2022 History of Present illness Narrative* She [...] issues with possible mood changes - complete [facility] paperwork - asked about transplant today - remains not interested at this time RTC: 01/22/2023 at [place] with spirometry and then in the summer at [facility] for entire team She Pete, DO [...] ---Referral to ENT for surgical eval. Appt [phone]. CYSTIC FIBROSIS RELATED DIABETES ---The standard medical therapy for CFRD is subcutaneous insulin (oral diabetic agents should not be used); ---Patient currently on insulin therapy. ---Self monitored blood glucose 3 times per day ---Most recent hgA1c noted. ---Following with Dr. 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 LAST LAB RESULTS: ---Reviewed in [facility] Glucose (mg/dL) Date Value 08/09/2022 201 [...] 05/29/2018 10.3 06/25/2016 7.0 SPIROMETRY: Reviewed in [facility] [address], [place], [place] [address] Test Date: 2022-09-11 Pat Name: JAY BARBER Department: Room: Gender: Male Mechanical Estimator: : 1995 Requested By: Order Number: [id number] Reading MD: Interpretive Statements The exhaled (FVC) spirometry maneuver meets ATS/ERS acceptability and repeatability standards. The inspired (FIVC) spirometry maneuver is less than the FVC maneuver. //KM IMPRESSION: Site: [facility] ID: [id number] Name: JAY BARBER Visit Date: 09/11/2022 Doctor: Mechanical Estimator: Padma Campbell Age: 27 Date of : [...] FEF75 (L/sec) 1.51 0.80 2.68 0.14 9 KMC34-95 (L/sec) 3.76 2.35 5.50 0.29 7 PEF L/s (L/sec) 8.55 6.73 10.37 4.65 54 FIVC (L) 2.67 FIF50 (L/sec) 3.68 PIF (L/sec) 4.20 Time (sec) 15.39 MACIEL (L) 0.03 FET PEF (sec) 0.04 [facility] [address], [place], [place] [address] Test Date: 2022 Pat Name: JAY BARBER Department: Room: Gender: Male Mechanical Estimator: : 1995 Requested By: Order Number: [id number] Reading MD: Interpretive Statements The exhaled (FVC) spirometry maneuver meets ATS/ERS acceptability and repeatability standards. The inspired (FIVC) spirometry maneuver is [less than] the FVC maneuver. //KS IMPRESSION: Site: [facility] ID: [id number] Name: JAY BARBER Visit Date: 2022 Doctor: Mechanical Estimator: Kaylen Daigle Age: 27 Date of : [...] FEF75 (L/sec) 1.52 0.80 2.69 0.14 9 AKW85-26 (L/sec) 3.77 2.35 5.51 0.27 7 PEF [...] agrees with treatment plan. documented in this encounterMount St. Mary Hospital10-12-2022 History of Present illness Narrative* Padma Campbell, CHRISTIAN SCIENCE HEALER - 09/11/2022 8:46 AM EDT PULM FUNCTION SMARTBLOCK: Provider: She Pete DO Spirometry: 1 documented [address] Mary Hospital09-28-2022 Miscellaneous Notes* Telephone Encounter - Nell [...] paxlovid vs trikafta. Call pharmacist directly at [phone] [facility] Hospital09-26-2022 Miscellaneous Notes* Telephone Encounter - Sally Schneider APRN.[facility] - 08/26/2022 10:09 AM EDT FACT SHEET FOR PATIENTS, PARENTS, AND CAREGIVERS EMERGENCY USE AUTHORIZATION (EUA) OF PAXLOVID FOR CORONAVIRUS DISEASE 2019 (COVID-19) You are being given this Fact Sheet because your healthcare provider believes it is necessary to provide you with PAXLOVID for the treatment of kyei-io-fqxcmeua coronavirus disease (COVID-19) caused by the SARS-CoV-2 [...] virus. COVID-19 illnesses have ranged from very tmco-qy-bulqbq, including illness resulting in . While information [...] is an investigational medicine used to treat sxjq-ka-ptvfwnfx COVID-19 in adults and children [12 years [...] of using PAXLOVID to treat people with vwjz-ay-rnerawiw COVID-19. The FDA has authorized the emergency use of PAXLOVID for the treatment of bwyf-cf-fqmxbdld COVID-19in adults and children [12 years of [...] the medicines you take, including prescription and xgux-xud-ogksexp medicines, vitamins, and herbal supplements. Some medicines [...] (remdesivir) is FDA-approved for the treatment of jhts-oq-ilersnbj COVID-19 in certain adults and children. Talk with your doctor to see if Veklury is appropriate for you. Like PAXLOVID, FDA may also allow for the emergency use of other medicines to treat people with COVID-19. Go to https://www.fda.gov/cutnngqzk-grprpbjcqbdp-ijsalpsoxbw/jfo-pozrs-kxcxmifuae-and- policy-framework/iblmerrfd-dei-gevfmvwyldnlu for information on the emergency use of [...] if I am or ? There is machine tool technology instructor treating women or mothers with PAXLOVID. For [...] to FDA MedWatch at www.fda.gov/medwatch or call 4-828-WDC1166 or you can reportside effects to [employer]. at the contact information provided below. Website Fax number Telephone number [employer] How should I store PAXLOVID? Store PAXLOVID [...] (EUA). The EUA is supported by a Supply Assistant of Health and Human Service (HHS) declaration that circumstances exist to justify the emergency use of drugs and biological productsduring the COVID-19 pandemic. PAXLOVID for the treatment of nrxt-qm-wlsgdrif COVID-19 in adults and children [12 years [...] telephone number provided below. Website Telephone number www.YCRBN51gommUa.com (0-649-K16-XCQL) You can also go to www.[employer] or call for more information. Pfizer Distributed by [employer] [place] [address] LAB-1494-2.1 Revised: 15 February 2022 documented in this encounterShawn Ville [address]-26-2022 History of Present illness Narrative* Sally Schneider APRN.CNP - 08/26/2022 10:08 AM EDT Nirmatrelvir/Ritonavir (Paxlovid) Eligibility and Patient Discussion [facility] Formulary Restriction Criteria: Adult outpatients 18 [...] Criteria above are met: documented in this encounterMount St. Mary Hospital09-26-2022 Instructions* Patient Instructions* Sally Schneider APRN.CNP - 08/26/2022 10:08 AM EDT FACT SHEET FOR PATIENTS, PARENTS, AND CAREGIVERS EMERGENCY USE AUTHORIZATION (EUA) OF PAXLOVID FOR CORONAVIRUS DISEASE 2019 (COVID-19) You are being given this Fact Sheet because your healthcare provider believes it is necessary to provide you with PAXLOVID for the treatment of negc-od-ejuxuxrg coronavirus disease (COVID-19) caused by the SARS-CoV-2 [...] virus. COVID-19 illnesses have ranged from very vuha-kc-dnelrf, including illness resulting in . While information [...] is an investigational medicine used to treat gojv-gd-aawqcbmf COVID-19 in adults and children [12 years [...] of using PAXLOVID to treat people with lqcb-wz-gzovjdty COVID-19. The FDA has authorized the emergency use of PAXLOVID for the treatment of eshm-pe-hrubyyib COVID-19in adults and children [12 years of [...] the medicines you take, including prescription and znvn-msh-lldticv medicines, vitamins, and herbal supplements. Some medicines [...] (remdesivir) is FDA-approved for the treatment of mpnh-xn-zzsmfenh COVID-19 in certain adults and children. Talk with your doctor to see if Veklury is appropriate for you. Like PAXLOVID, FDA may also allow for the emergency use of other medicines to treat people with COVID-19. Go to https://www.fda.gov/txnnazmja-limelknxaqrf-csltviaymox/kdl-vjdbl-imbtrjboky-and- policy-framework/vdowkokvd-lia-bqszubprgqysj for information on the emergency use of [...] if I am or ? There is machine tool technology instructor treating women or mothers with PAXLOVID. For [...] Report side effects to FDA MedWatch at www.fda.gov/Who Can Fix My Car or call 4-324-XZM8073 or you can reportside effects to [employer]. at the contact information provided below. Website Fax number Telephone number www.[employer] How should I store PAXLOVID? Store PAXLOVID [...] (EUA). The EUA is supported by a Supply Assistant of Health and Human Service (HHS) declaration that circumstances exist to justify the emergency use of drugs and biological productsduring the COVID-19 pandemic. PAXLOVID for the treatment of prva-ez-rxiihjuk COVID-19 in adults and children [12 years [...] telephone number provided below. Website Telephone number www[facility] (9-151-L84-LJKE) You can also go to www.[employer] or call for more information. Pfizer Distributed by [employer] [place] [address] LAB-1494-2.1 Revised: 15 February 2022 documented in this [facility]09-09-2022 Nurse Note* Fern Watts Adm Asst I - 08/09/2022 12:[address]Miranda misty mora. Picc line pulled in pulmonary clinic today. Message sent to Pharmacy. Fern Watts Adm Asst I documented in this [facility]09-09-2022 Instructions* Patient Instructions* Sally Schneider APRN.CNP - 08/09/2022 10:47 AM EDT STop IV abx today CMP drawn today will follow up results I will check on the inhaled cayston today Follow up with Dr Pete 09/11/22 at 9 am PFT 8:45 am at [facility] documented in this [facility]09-09-2022 History of Present illness Narrative* Nitin Oden RRT - 08/09/2022 10:17 AM EDT PEDS PULM: Provider: Sally Schneider APRN.CNP Spirometry: 1 System: [id number] documented in this encounterMount St. [facility]09-09-2022 History of Present illness Narrative* Sally Schneider, ADALI.TUNNEL WORKER - 08/09/2022 9:44 AM EDT Images from [...] monitoring is being done and -------Labs in [facility] ---No significant changes in creatinine, LFTs, [...] Dr Pete on FriSeptember 11 9:00 am [place] with [place] baseline 1. 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 Appt [phone]. CYSTIC FIBROSIS RELATED DIABETES ---The standard medical therapy for CFRD is subcutaneous insulin (oral diabetic agents should not be used); ---Patient currently on insulin therapy. ---Self monitored blood glucose 3 times per day ---Most recent hgA1c noted. ---Following with Dr. Francis Ramirez at [facility] Aspergillus infection/Trichosporonosis - treated with voriconazole by ID independent marketing consultant Dr. Burke France in 2019 for 1 year Depression/Anxiety ---continues on celexa 20 mg PO daily ---will have him see SW with next visit HTN ---Coreg 6.25 mg (had hyperkalemia with SEVERINO-I) Proteinuria --- previously seen by Dr. Ahuja in nephrology Return to clinic in 5 weeks with spirometry baseline. 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) Transfusion [...] Each three times daily.^Disp: 1 Each^Rfl: 0 lqrwfzubrgn-nhvgopqxoz-mtgavzciw (TRIKAFTA) 100-50-75 mg(d) /150 mg (n) tablet^Take [...] units a day^Disp: 15 mL^Rfl: 6 Insulin [place], Disposable, (BD ULTRA-FINE YARON PEN NEEDLE) 32 [...] recent labs LAST LAB RESULTS: ---Reviewed in [facility] Glucose (mg/dL) Date Value 08/01/2022 281 [...] 08/01/2022 Neut% 57.5 08/06/2022 Lymph% 9.8 07/29/2022 [place]% 12.6 07/29/2022 Eosin% 7.9 08/06/2022 Baso% 0.4 07/29/2022 Abs Neut (Segs + Bands) 4.8 08/06/2022 Abs [place] 1.28 07/29/2022 Abs Eosin 0.17 07/29/2022 Abs Baso 0.04 07/29/2022 SPIROMETRY: Reviewed in [facility] SPIROMETRY BASELINE ONLY ([id number]) - ordered on 07/17/22 No textual results for order. MICROBIOLOGY: Reviewed MICROBIOLOGY SNAPSHOT Written and verbal health teaching given to patient, patient verbalizes understanding and agrees with treatment plan. Electronically Signed: Sally Schneider CNP August 09, [address] [facility] Miscellaneous Notes* Telephone Encounter - Forrest [...] IMPRESSION: Findings in keeping with cystic fibrosis. Creative/Art Director: KATHIE Transcribe Date/Time: Jul 25 2022 10:42A [...] and soft tissues: Unremarkable. documented in this encounter[facility]2022 History of Present illness Narrative* RT [...] 25, 2022 10:28 AM documented in this encounterMount [facility]. [facility]08-21-2022 Instructions* Patient Instructions* She Pete DO [...] your usual activities immediately. documented in this encounterMount [facility]. [facility]08-[facility]-2022 History of Present illness Narrative* She Pete DO - 2022 5:57 PM EDT Jay Barber is here for IRB # [id number] Cystic Fibrosis Patient Registry IRB# [id number] Inspector Type: Forrest Hale MD 1. Inspector Type and/or Research Nurse explained the protocol to [...] with their health care team [facility]. There is no compensation for participating in this study. Zoie Barber verbalized understanding and had no further questions prior to signing the consent. Nostudy procedures occurred prior to signing consent. She Pete DO documented in this encounterMount [facility]. [facility]08-[facility]-2022 History of Present illness Narrative* She [...] him see hepatology when he comes to [facility] as well - CF sputum culture today - refilled medications - modified dosing of Trikafta due to liver disease - discussed about lung transplant as possible liver transplant - we discussed referral to 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 We discussed possibility of referral to [facility], would like to hold off for now [...] ---Referral to ENT for surgical eval. Appt [phone]. CYSTIC FIBROSIS RELATED DIABETES ---The standard medical therapy for CFRD is subcutaneous insulin (oral diabetic agents should not be used); ---Patient currently on insulin therapy. ---Self monitored blood glucose 3 times per day ---Most recent hgA1c noted. ---Following with Dr. Francis Ramirez at [facility] Aspergillus infection/Trichosporonosis - treated with voriconazole by ID independent marketing consultant Dr. Burke France in 2019 for [...] or hypoglycemic symptoms Prior exacerbation treatments per [facility] Procedures & IV/Oral Course: -12/15/95-12/23/95 Hospitalized [...] po X 2 weeks -11/13/2010 Hospital/surgery at [place]: Splenorenal shunt --- -03/13/2011 Home treatment Bactrim [...] related to cystic fibrosis (HCC) Liver disease senior care (current) use of insulin (HCC) Transfusion history [...] about 40 total units a day Insulin [place], Disposable, (BD ULTRA-FINE YARON PEN NEEDLE) 32 [...] recent EKG CXR and KUB 05/12/2022 - [facility] IMPRESSION: There are chronic cystic fibrosis [...] is abnormal). LAST LAB RESULTS: ---Reviewed in [facility] CBC with diff: WBC 6.58 12/05/2015 RBC 5.39 12/05/2015 Hemoglobin 16.2 12/05/2015 Hematocrit 48.4 12/05/2015 MCV 89.8 12/05/2015 MCH 30.1 12/05/2015 MCHC 33.5 12/05/2015 RDW-CV 12.9 12/05/2015 Platelet Count 157 12/05/2015 MPV 11.0 12/05/2015 Neut% 62.5 12/05/2015 Lymph% 24.9 12/05/2015 Cibola% 9.1 12/05/2015 Eosin% 3.0 12/05/2015 Baso% 0.5 12/05/2015 Abs Neut (ANC) 4.11 12/05/2015 Abs [place] 0.60 12/05/2015 Abs Eosin 0.20 12/05/2015 Abs [...] 05/29/2018 10.3 06/25/2016 7.0 SPIROMETRY: Reviewed in [address] [address] Test Date: 2022 Pat Name: JAY BARBER Department: Room: Gender: Male Mechanical Estimator: : 1995 Requested By: Order Number: [id number] Reading MD: Interpretive Statements The exhaled (FVC) spirometry maneuver meets ATS/ERS acceptability and repeatability standards. The inspired (FIVC) spirometry maneuver is [less than] the FVC maneuver. //KS IMPRESSION: Site: [facility] ID: [id number] Name: ELISABETH JAY Visit Date: 2022 Doctor: Mechanical Estimator: Kaylen Daigle Age: 27 Date of : [...] FEF75 (L/sec) 1.52 0.80 2.69 0.14 9 TLX80-27 (L/sec) 3.77 2.35 5.51 0.27 7 PEF [...] She Pete DO 2022 documented [address]06-14-2022 Hospital course Narrative * Lilliana Harvey APRN-[facility] - 05/14/2022 1:29 PM EDT Discharge/Transfer Summary Name: Jay Barber MR#: [id number] : 1995 Room #: WEO9417/01 Age/Sex: 26 y.o. male Admit Date: 05/12/2022 Admitting: Curtis Arguelles MD Discharge Date: 05/14/2022 Discharged from: [facility] Attending: Curtis Cisneros MD Final Diagnosis: [...] [ ] [ ] [ ] CREON 18601-734505 units capsule Take 3 Capsules (108,000 Units) by mouth Before Meals and 2 Snacks Generic drug: pancrelipase [ ] [ ] [ ] [ ] [ ] fluticasone 220 MCG/ACT 220 mcg inhaler Inhale 1 Puff into the lungs 2 times daily Commonly known as: FLOVENT HFA [ ] [ ] [ ] [ ] [ ] fluticasone 50 MCG/ACT nasal spray 1 [place] by Each Nare route 2 times daily [...] ] [ ] [ ] [ ] OPTICRazerBER DINO Jean-Paul DEVICE by Other route Use [...] therapy pack Am dose only Generic drug: Mcwcohli-Qbwvokc-Rjblfc&Ivacaf [ ] [ ] [ ] [ ] [ ] vitamin D 1.25 MG (34249 UT) capsule Take 1 Capsule (50,000 Units) by mouth every 7 days Indications: Osteoporosis Commonly known as: ERGOCALCIFEROL [ ] [ ] [ ] [ ] [ ] Discharge Instructions: Resume normal activity, diet, and medications. Add Miralax 17g PO q day as needed. Signed: Siria Odonnell was present and examined patient for discharge. documented in this encounterUniversity [facility]als [facility]06-14-2022 Progress note* Ancillary Progress Note - Orquidea [...] at bedside. Patient is being seen at [facility] pediatric unit. No specific needs were expressed at this time. Will continue to follow up throughoutadmissions. Patient expected to be discharged. TANA Friend [facility]06-14-2022 Miscellaneous Notes* Ancillary Progress Note - Orquidea [...] at bedside. Patient is being seen at [facility] [place] pediatric unit. 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 Jay was admitted for poor intake [...] Evaluation Patient's Name: Jay Barber MR #: [id number] Patient's : 1995 Patient's age: 26 y.o. Location: [place] Evaluation date: 05/13/2022 Start Time: 15:45 Stop [...] 26 y.o. male who was admitted to 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 Home design includes: bedroom is on the 1st floor and bathroom is on the 1st floor. Jay was last admitted to 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 Jay was admitted for poor intake [...] minute(s) Bert Briones RD/GERRY May 13, 2022 [facility]06-13-[facility]22 History of Present illness Narrative* Curtis Cisneros [...] 3 Taking vitamin D (ERGOCALCIFEROL) 1.25 MG (10307 UT) capsule Take 1 Capsule (50,000 Units) [...] each use. 1 Each 11 Taking CREON 90386-267357 units capsule Take 3 Capsules (108,000 Units) by mouth Before Meals and 2 [id number] Capsule 11 Taking fluticasone (FLONASE) 50 MCG/ACT nasal spray 1 [place] by Each Nare route 2 times daily 1 g 0 Taking Egplvvxx-Guydzbx-Ocomla&Ivacaf (TRIKAFTA) 100-50-75 & 150 MG oral tablet [...] nebulize [place] 1 Each 5 Spacer/Aero-Holding Chambers ([facility] PSYCHIATRIC CENTERBER DINO) JEAN-PAUL DEVICE by Other route Use [...] patient was 30 minutes. documented in this encounterUniversity Hospitals Lake [facility] Center06-13-2022 Consult note* Ancillary Consult - Joana Castro PT - 05/13/2022 9:14 AM EDT Physical Therapy General Evaluation Patient's Name: Jay Barber MR #: [id number] Patient's : 1995 Patient's age: 26 y.o. Location: [place] Evaluation date: 05/13/2022 Start Time: 15:45 Stop [...] 26 y.o. male who was admitted to 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 Home design includes: bedroom is on the 1st floor and bathroom is on the 1st floor. Jay was last admitted to [facility] from 06/15/19 to 06/28/19 due to Cystic [...] the referral. Joana Castro, PT 9:14 AM [facility]06-13-[facility] Plan of care note* Plan of Care [...] Goal: Balanced intake and output Outcome: Ongoing [facility] History and physical note* Curtis Cisneros MD [...] 3 Taking vitamin D (ERGOCALCIFEROL) 1.25 MG (58557 UT) capsule Take 1 Capsule (50,000 Units) [...] each use. 1 Each 11 Taking CREON [id number] units capsule Take 3 Capsules (108,000 Units) by mouth Before Meals and 2 [id number] Capsule 11 Taking fluticasone (FLONASE) 50 MCG/ACT nasal spray 1 [place] by Each Nare route 2 times daily 1 g 0 Taking Svarvnwa-Zhzvzxg-Djpqpr&Ivacaf (TRIKAFTA) 100-50-75 & 150 MG oral tablet [...] 225 mL 3 Unknown Respiratory Therapy Supplies (Snapbridge SoftwareA NEBULIZER HANDSET) MISC 1 Each by Does not apply route 3 times daily To be used to nebulize cayston 1 Each 5 Spacer/Aero-Holding Chambers (Fundacity, IncBER DINO) JEAN-PAUL DEVICE by Other route Use [...] care for this patient was 50 minutes. [facility]06-12-2022 History and physical note* Curtis Cisneros MD [...] 3 Taking vitamin D (ERGOCALCIFEROL) 1.25 MG (61501 UT) capsule Take 1 Capsule (50,000 Units) [...] each use. 1 Each 11 Taking CREON 96405-611143 units capsule Take 3 Capsules (108,000 Units) by mouth Before Meals and 2 Wpzjlx571 Capsule 11 Taking fluticasone (FLONASE) 50 MCG/ACT nasal spray 1 [place] by Each Nare route 2 times daily 1 g 0 Taking Fkgfoubc-Wgdhrvd-Hcrqmr&Ivacaf (TRIKAFTA) 100-50-75 & 150 MG oral tablet [...] mL 3 Unknown Respiratory Therapy Supplies ([employer] NEBULIZER HANDSET) MISC 1 Each by Does not apply route 3 times daily To be used to nebulize cayston 1 Each 5 Spacer/Aero-Holding Chambers ([employer] DINO) JEAN-PAUL DEVICE by Other route Use [...] patient was 50 minutes. documented in this encounterUniversity Hospitals Lake [facility] Center06-12-2022 Emergency department Note* Magalie Kuhn RN - 05/12/2022 3:36 PM EDT Pritesh notified of pt's departure. [facility]06-[facility] Emergency department Note* Magalie Kuhn RN - 05/12/2022 3:36 PM EDT Pritesh notified of pt's departure. * Magalie Kuhn RN - 05/12/2022 3:25 PM EDT Pt resting comfortably, updated on plan of care. Pt states he is feeling better at this time. * Magalie Kuhn RN - 05/12/2022 2:37 PM EDT Jay Barber [id number] Point of Care testing Glucometer: Venous blood [...] Age: approx 27 months Referred From:transferred from [facility] Cystic fibrosis exacerbation 04/11/2014 multiple Diabetes [...] patient's case with Dr. Curtis Cisneros at [facility]. Patient was transferred to [facility] for admission and further management. ED Course: Diagnosis' considered: viral gastro vs JOSE vs pancreatitis vs acute appy Labs/Radiology: CBC, CMP, Lipase, KUB, RFA Consults: No orders of the defined types were placed in this encounter. Medical Record/Transferring Institution Record: Treatment/Reassessment: Encounter Documentation/Handoff: Medical Decision Making as of 05/13/22 0853 [place] May 12, 2022 0911 26 yom, history [...] 6.0(!!) [DV] [address] Cisneros, [facility], who accepted patient for admission for IVF, tachycardia, emesis. Dr. Cisneros will call back as he needs to discuss with team regarding transfer/admission. Patient updated and aware of plan. [ES] 1316 keenan Meyer for transfer [facility] [place]. [facility] at this time. [ES] 1324 RFA neg [ES] 1345 Pt with ongoing emesis, Reglan ordered. [ES] 1504 Home insulin ordered for BGT of 427. [ES] 1535 VSS. Patient transferred to [place] via [facility]. [DV] Medical [...] clear and resp easy. documented in this encounterUniversity Hospitals [facility]06-12-2022 Emergency department Note* Magalie Kuhn RN - 05/12/2022 3:25 PM EDT Pt resting comfortably, updated on plan of care. Pt states he is feeling better at this time. [facility]06-12-[facility] Emergency department Note* Magalie Kuhn RN - 05/12/2022 2:37 PM EDT Jay Barber [id number] Point of Care testing Glucometer: Venous blood drawn 427 mg/dl Results of < 45 or > 450 mg/dl need to be confirmed by the laboratory REFERENCE RANGE: 60-110 mg/dl. Two identifiers from patient verified. Test performed at bedside. Specimen labelled in the presenceof the patient. [facility]06-12-[facility] Emergency department Note* Magalie Khun RN - 05/12/2022 2:20 PM EDT Nursing report given to receiving nurse. This nurse to call when patient leaves. [facility]06-[facility] Emergency department Note* Magalie Kuhn RN - 05/12/2022 2:01 PM EDT Pt up to restroom unassisted. [facility]06-12-[facility] Emergency department Note* Magalie Kuhn RN - 05/12/2022 1:35 PM EDT Pt vomiting, fellow aware. [facility]06-12-2022 NoteIs this a pre-procedure screening test?->No Release to patient->[employer]ACH [id number] Emergency department Note* Magalie Kuhn RN - 05/12/2022 11:42 AM EDT Pt up to restroom, unassisted. Pt tolerated well. Pt reports PO of 240cc gatorade and feels well. [facility]06-12-[facility] Emergency department Note* Magalie Kuhn RN - 05/12/2022 10:42 AM EDT Critical lab value K of 8.3 (hemolyzed) verbally received from laboratory staff. Dr. Ryan (current provider) was notified at this time. Immediate interventions identified in reponse: redraw K. [facility]06-12-[facility] Emergency department Note* Magalie Kuhn RN - 05/12/2022 10:04 AM EDT IV attempted x2 in R forearm unsuccessfully, pt tolerated well. EKG done and given to provider. [facility]06-12-[facility] Emergency department Note* Lolis James RN - 05/12/2022 10:00 AM EDT This RN to bedside to insert IV via ultrasound guidance. Pt awake, alert. NAD. Resps easy. Pt asking for gatorade after IV placed and fluids started. phil Mejias RN notified. [facility]06-12-[facility] Physician Emergency department Note* Sabina Larios MD [...] patient's case with Dr. Curtis Cisneros at [facility]. Patient was transferred to [facility] for admission and further management. ED Course: Diagnosis' considered: viral gastro vs JOSE vs pancreatitis vs acute appy Labs/Radiology: CBC, CMP, Lipase, KUB, RFA Consults: No orders of the defined types were placed in this encounter. Medical Record/Transferring Institution Record: Treatment/Reassessment: Encounter Documentation/Handoff: Medical Decision Making as of 05/13/22 0853 [place] May 12, 2022 0911 26 yom, history [...] 6.0(!!) [DV] [address] Cisneros, [facility], who accepted patient for admission for IVF, tachycardia, emesis. Dr. Cisneros will call back as he needs to discuss with team regarding transfer/admission. Patient updated and aware of plan. [ES] 1316 keenan Meyer for transfer to [place]. Called [facility] and working on obtaining ALS at this time. [ES] 1324 RFA neg [ES] 1345 Pt with ongoing emesis, Reglan ordered. [ES] 1504 Home insulin ordered for BGT of 427. [ES] 1535 VSS. Patient transferred to [place] via [facility]. [DV] Medical [...] Sabina Larios MD Pediatric Emergency Medicine, PGY4 [facility]06-12-2022 Emergency department Triage note* Be Zaidi RN - 05/12/2022 8:44 AM EDT Patient came to the ED for vomiting since Friday night and elevated HR since last night. Patient c/o worsening abdomen pain. Patient voided 1 time today. Patient took 2 CoVid tests, negative. Pt alert and ambulatory, skin pink warm and dry, lungs clear and resp easy. [facility]04-20-[facility] History of Present illness Narrative* Miguelina Murray RN - 03/20/2022 11:01 AM EDTSummary: New CF patient referral Images from the original note were not included. Referral from: [facility] Dr. Jean Pierre Kilgore Patient from: [place], [place] Reason for consult: Cystic Fibrosis Transition of Care Genotype: Delta [id number] Complications of CF: ---ADVANCED stage lung disease; [...] home. Supplemental oxygen use: NO CURRENT MEDICATIONS: Glfeapbw-Xceuvnp-Naybwl&Ivacaf (TRIKAFTA) 100-50-75 & 150 MG oral tablet [...] Capsule 3 vitamin D (ERGOCALCIFEROL) 1.25 MG (99805 UT) capsule Take 1 Capsule (50,000 Units) [...] for Allergies 30 Tab 11 Spacer/Aero-Holding Chambers (Fundacity, IncBER DINO) JEAN-PAUL DEVICE by Other route Use [...] into the muscle Use as instructed. CREON 87558 units capsule Take 3 Caps (108,000 Units) [...] scan ---Follow up/discuss Transplant Miguelina Murray RN Underwriting Manager CF and Bronchiectasis Programs A110 documented in this [facility]. [facility]04-[facility]-2022 Miscellaneous Notes* Telephone Encounter - Nell Lozano - 03/05/2022 1:09 PM EDT I have called patient and he did not answer. I left a voicemail requesting that he give me a call back at his earliest convenience. * Telephone Encounter - Nell Lozano - 03/05/2022 7:54 AM EDT Referring physician: Dr. Jean Pierre Kilgore Address: [facility] Phone: Fax: Diagnosis: Cystic Fibrosis Are there [facility] records: Yes Are there care everywhere records: Yes Has a referral form been faxed: No Has patient been added to spreadsheet: Yes documented in this encounterD[facility] Centeraluation + Plan note No data available for this section [facility] Evaluation note* Diagnosis Cystic fibrosis with pulmonary manifestations (HCC)- Primary Cystic fibrosis with pulmonary manifestations documented in this encounter [facility] note* Diagnosis Intractable nausea and vomiting- Primary [...] to cystic fibrosis [facility]* Diagnosis 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)- Primary Vitamin D deficiency Unspecified vitamin D deficiency documented in this encounter [facility] [...] screening for osteoporosis documented [facility] this [facility]* Diagnosis Cystic fibrosis with pulmonary manifestations (HCC)- Primary Cystic fibrosis with pulmonary manifestations [facility]* Diagnosis Cystic fibrosis with pulmonary manifestations (HCC)- Primary Cystic fibrosis with pulmonary manifestations Hemoptysis Hemoptysis, unspecified Pseudomonas aeruginosa infection Pseudomonas infection in conditions classified elsewhere and of unspecified site Burkholderia cepacia infection Infection due to other gram-negative organisms in conditions classified elsewhere and of unspecified site documented in this encounter [facility]* Diagnosis Cystic fibrosis with pulmonary manifestations (HCC) Cystic fibrosis with pulmonary manifestations [facility] encounter [facility]* Diagnosis Cystic fibrosis (HCC) Cystic fibrosis without mention of meconium ileus documented in this encounter [facility] [...] this encounter [facility] noteNo assessment information availableWKettering Health Hamilton Work Phone: Evaluation note* Diagnosis Cystic fibrosis with pulmonary manifestations (HCC)- Primary Cystic fibrosis with pulmonary manifestations [facility]* Diagnosis Type 1 diabetes mellitus [...] of meconium ileus [facility] Diagnosis CF (cystic fibrosis) (HCC)- [...] severe protein-calorie malnutrition [facility]* Diagnosis Cystic fibrosis (HCC) Cystic [...] Low weight Under[facility] Diagnosis Infection- Primary Unspecified infectious and parasitic diseases [facility] [...] of unspecified site [facility] Diagnosis Cystic fibrosis with pulmonary manifestations (HCC)- Primary Cystic fibrosis with pulmonary manifestations [facility] Diagnosis Cystic fibrosis with pulmonary manifestations (HCC)- Primary Cystic fibrosis with pulmonary manifestations [facility] Diagnosis CF (cystic fibrosis) (HCC) Cystic fibrosis without mention of meconium ileus [facility] Diagnosis Need for prophylactic vaccination [...] of unspecified site [facility]* Diagnosis Cystic fibrosis with pulmonary exacerbation (HCC)- Primary Cystic fibrosis with pulmonary manifestations [facility]* Diagnosis Type 1 diabetes mellitus with hyperglycemia (HCC)- Primary 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 mention of complication, not stated as uncontrolled [facility] Diagnosis Cystic fibrosis with pulmonary manifestations (HCC)- Primary Cystic fibrosis with pulmonary manifestations [facility] Type 1 diabetes mellitus with hyperglycemia (HCC)- Primary 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 mention of complication, not stated as uncontrolled [facility]* Diagnosis Cystic fibrosis with pulmonary manifestations (HCC)- Primary Cystic fibrosis with pulmonary manifestations [facility] Diagnosis Cystic fibrosis with pulmonary manifestations (HCC) Cystic fibrosis with pulmonary manifestations [facility] Diagnosis Cystic fibrosis with pulmonary manifestations (HCC)- Primary Cystic fibrosis with pulmonary manifestations [facility] Diagnosis Cystic fibrosis (HCC)- Primary Cystic fibrosis without mention of meconium ileus [facility] Diagnosis Cystic fibrosis with pulmonary exacerbation (HCC)- Primary Cystic fibrosis with pulmonary manifestations [facility]* Diagnosis Cystic fibrosis (HCC)- Primary Cystic fibrosis without mention of meconium ileus 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) 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) Secondary diabetes mellitus without mention of complication, not stated as uncontrolled, or unspecified Dietary counseling and surveillance Dietary surveillance and counseling [facility] [...] Low weight Underweight [facility] Diagnosis Cystic fibrosis with pulmonary exacerbation (HCC)- Primary Cystic fibrosis with pulmonary manifestations Cystic fibrosis with pulmonary manifestations (HCC) Cystic fibrosis with pulmonary manifestations [facility] Cystic fibrosis with pulmonary exacerbation (HCC)- Primary Cystic fibrosis with pulmonary manifestations [facility]* Diagnosis Type 1 diabetes mellitus with hyperglycemia (HCC)- Primary 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 mention of complication, not stated as uncontrolled [facility] Diagnosis Cystic fibrosis (HCC) [E84.9 (ICD-10-CM)]- Primary Cystic fibrosis without mention of meconium ileus [facility] Diagnosis Cystic fibrosis (HCC)- Primary Cystic fibrosis without mention of meconium ileus 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) [facility]* Diagnosis Cystic fibrosis (HCC)- Primary Cystic fibrosis without mention of meconium ileus [facility]* Diagnosis Cystic fibrosis (HCC) Cystic fibrosis without mention of meconium ileus [facility]* Diagnosis Cystic fibrosis with pulmonary manifestations (HCC)- Primary Cystic fibrosis with pulmonary manifestations [facility]* Diagnosis Cystic fibrosis with pulmonary manifestations (HCC)- Primary Cystic fibrosis with pulmonary manifestations Cystic fibrosis with pulmonary exacerbation (HCC) Cystic fibrosis with pulmonary manifestations [facility]* Diagnosis Cystic fibrosis (HCC)- Primary [...] cystic fibrosis (HCC) [facility]* Diagnosis Cystic fibrosis (HCC)- Primary Cystic fibrosis without mention of meconium ileus [facility]* Diagnosis Cystic fibrosis (HCC)- Primary [...] with pulmonary manifestations [facility] Diagnosis Anemia due to multiple mechanisms- Primary Anemia, unspecified Other specified intestinal malabsorption [facility] Diagnosis Cystic fibrosis (HCC)- Primary Cystic fibrosis without mention of meconium ileus [facility] Diagnosis Cystic fibrosis with pulmonary [...] severe protein-calorie malnutrition [facility]* Diagnosis Osteoporosis without current pathological fracture, unspecified osteoporosis type [facility] Diagnosis Osteoporosis, unspecified osteoporosis type, unspecified pathological fracture presence- Primary Cystic fibrosis (HCC) Cystic fibrosis without mention of meconium ileus [facility]* Diagnosis Cystic fibrosis with pulmonary manifestations (HCC)- Primary Cystic fibrosis with pulmonary manifestations [facility] Diagnosis Cystic fibrosis (HCC) Cystic fibrosis without mention of meconium ileus 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) [facility]* Diagnosis Cystic fibrosis (HCC)- Primary Cystic fibrosis without mention of meconium ileus [facility] Diagnosis Type 1 diabetes mellitus with hyperglycemia (HCC) 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 mention of complication, not stated as uncontrolled [facility] Diagnosis Cystic fibrosis (HCC)- Primary Cystic fibrosis without mention of meconium ileus 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) 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) Secondary diabetes mellitus without mention of complication, not stated as uncontrolled, or unspecified Dietary counseling and surveillance Dietary surveillance and counseling Vitamin D deficiency Unspecified vitamin D deficiency [facility] Diagnosis Dyspnea, unspecified type- Primary [facility]* Diagnosis 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)- Primary [facility] Diagnosis Cystic fibrosis (HCC)- Primary Cystic fibrosis without mention of meconium ileus [facility] Diagnosis Cystic fibrosis (HCC)- Primary Cystic fibrosis without mention of meconium ileus [facility]* Diagnosis Infection- Primary Unspecified infectious and parasitic diseases [facility] Diagnosis Cystic fibrosis exacerbation (HCC)- Primary Cystic fibrosis without mention of meconium ileus Cystic fibrosis with pulmonary exacerbation (HCC) Cystic fibrosis with pulmonary manifestations [facility]* Diagnosis Cystic fibrosis (HCC)- Primary Cystic fibrosis without mention of meconium ileus 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) Secondary diabetes mellitus without mention of complication, not stated as uncontrolled, or unspecified Cystic fibrosis with pulmonary manifestations (HCC) Cystic fibrosis with pulmonary manifestations Vitamin D deficiency Unspecified vitamin D deficiency [facility] Diagnosis Type 1 diabetes mellitus with hyperglycemia (HCC) 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 mention of complication, not stated as uncontrolled [facility]* Diagnosis Cystic fibrosis with pulmonary exacerbation (HCC)- Primary Cystic fibrosis with pulmonary manifestations [facility]* Diagnosis Cystic fibrosis (HCC)- Primary Cystic fibrosis without mention of meconium ileus [facility]* Diagnosis Type 1 diabetes mellitus with hyperglycemia (HCC)- Primary 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 mention of complication, not stated as uncontrolled [facility]* Diagnosis 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 [...] of unspecified site [facility]* Diagnosis Hyperkalemia- Primary Hyperpotassemia Cystic fibrosis (HCC) Cystic fibrosis without mention of meconium ileus [facility] Diagnosis Cystic fibrosis (HCC)- Primary Cystic fibrosis without mention of meconium ileus [facility] Diagnosis Cystic fibrosis (HCC) Cystic fibrosis without mention of meconium ileus [facility] Diagnosis Cystic fibrosis (HCC)- Primary Cystic fibrosis without mention of meconium ileus Cystic fibrosis exacerbation (HCC) Cystic fibrosis without mention of meconium ileus [facility] [...] with other manifestations 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) Cystic fibrosis without mention of meconium ileus [facility]* Diagnosis Cystic fibrosis (HCC)- Primary Cystic fibrosis without mention of meconium ileus 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) Secondary diabetes mellitus without mention of complication, not stated as uncontrolled, or unspecified 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) Dietary counseling and surveillance Dietary surveillance and counseling [facility]* Diagnosis Cystic fibrosis (HCC)- Primary Cystic fibrosis without mention of meconium ileus [facility] Diagnosis Cystic fibrosis (HCC)- Primary Cystic fibrosis without mention of meconium ileus [facility]* Diagnosis Type 1 diabetes mellitus with hyperglycemia (HCC)- Primary 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 mention of complication, not stated as uncontrolled 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) Secondary diabetes mellitus without mention of complication, not stated as uncontrolled, or unspecified [facility]* Diagnosis Cystic fibrosis (HCC)- Primary Cystic fibrosis without mention of meconium ileus [facility]* Diagnosis Cystic fibrosis with pulmonary manifestations (HCC)- Primary Cystic fibrosis with pulmonary manifestations [facility]* Diagnosis Cystic fibrosis with pulmonary manifestations (HCC)- Primary Cystic fibrosis with pulmonary manifestations 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) Secondary diabetes mellitus without mention of complication, not stated as uncontrolled, or unspecified [facility]* Diagnosis Fever, unspecified fever cause- Primary Acute cough Cystic fibrosis (HCC) Cystic fibrosis without mention of meconium ileus [facility] Diagnosis Cystic fibrosis with pulmonary manifestations (HCC) Cystic fibrosis with pulmonary manifestations documented in this encounter [facility]* Diagnosis Sore throat- Primary Acute pharyngitis Subacute cough Cough Fever, unspecified fever cause Cystic fibrosis (HCC) Cystic fibrosis without mention of meconium ileus Subacute cough Cough documented in this encounter [facility] note* Diagnosis Subacute cough Cough [facility] Diagnosis Cystic fibrosis (HCC)- Primary Cystic fibrosis without mention of meconium ileus [facility] [...] fibrosis (HCC) (HCC) documented in this encounter [facility] note* Diagnosis Cystic fibrosis (HCC)- Primary Cystic fibrosis without mention of meconium ileus documented in this encounter [facility] note* Diagnosis Type 1 diabetes mellitus with hyperglycemia (HCC)- Primary 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 mention of complication, not stated as uncontrolled 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) Secondary diabetes mellitus without mention of complication, not stated as uncontrolled, or unspecified documented in this encounter [facility] note* Diagnosis Cystic fibrosis (HCC)- Primary Cystic fibrosis without mention of meconium ileus documented in this encounter [facility] note* Diagnosis Cystic fibrosis (HCC)- Primary Cystic fibrosis without mention of meconium ileus [facility] Diagnosis Cystic fibrosis with pulmonary manifestations (HCC)- Primary Cystic fibrosis with pulmonary manifestations documented in this encounter [facility] note* Diagnosis Cystic fibrosis (HCC)- Primary Cystic fibrosis without mention of meconium ileus [facility] No data available for this section [facility] Progress note No data available for this section [facility] Reason for referral (narrative)* Outpatient Procedure (Routine) - Pending Review Specialty Diagnoses / Procedures Referred By Contac t Referred To [facility] Diagnoses Cystic fibrosis with pulmonary manifestations (HCC) Procedures SPIROMETRY BASELINE ONLY SPMTRY W/VC EXPIRATORY CRISTINA W/WO MXML VOL VNTJ Forrest Hale MD [address] [place] [address] [address] Referral ID Status Reason Start Date Expiration Date Visits Requested Visits Authorized [id number] Pending Review Auto-Generat ed Referral 03/12/2022 04/04/2023 1 1 [facility] for referral (narrative)* Outpatient Procedure (Routine) - Pending Review Specialty Diagnoses / Procedures Referred By Contac t Referred To [facility] Diagnoses CF (cystic fibrosis) (HCC) Procedures SPIROMETRY BASELINE ONLY SPMTRY W/VC EXPIRATORY CRISTINA W/WO MXML VOL VNTJ She Pete DO [address] [place] [address] [address] Referral ID Status Reason Start Date Expiration Date Visits Requested Visits Authorized [id number] Pending Review Auto-Generat ed Referral 08/28/2022 09/27/2023 1 1 [facility] for referral (narrative)* Outpatient Procedure (Routine) - Pending Review Specialty Diagnoses / Procedures Referred By Contac t Referred To [facility] Diagnoses Cystic fibrosis (HCC) Procedures SPIROMETRY BASELINE ONLY SPMTRY W/VC EXPIRATORY CRISTINA W/WO MXML VOL VNTJ Sally Schneider APRN.TUNNEL WORKER [address] [place] [address] [address] Referral ID Status Reason Start Date Expiration Date Visits Requested Visits Authorized [id number] Pending Review Auto-Generat ed Referral 2 12/11/2023 1 1 [facility] for referral (narrative)* Outpatient Procedure (Routine) - Pending Review Specialty Diagnoses / Procedures Referred By Contac t Referred To [facility] Diagnoses Cystic fibrosis with pulmonary manifestations (HCC) Cystic fibrosis with pulmonary exacerbation (HCC) Procedures SPIROMETRY BASELINE ONLY SPMTRY W/VC EXPIRATORY CRISTINA W/WO MXML VOL She Granado DO [address] [place] [address] [address] Referral ID Status Reason Start Date Expiration Date Visits Requested Visits Authorized [id number] Pending Review Auto-Generat ed Referral 2 12/20/2023 1 1 [facility] for referral (narrative)* Outpatient Procedure (Routine) - Authorized Specialty Diagnoses / Procedures Referred By Contac t Referred To [facility] Diagnoses Cystic fibrosis with pulmonary manifestations (HCC) Procedures SPIROMETRY BASELINE ONLY SPMTRY W/VC EXPIRATORY CRISTINA W/WO MXML VOL She Granado DO [address] [place] [address] [address] Referral ID Status Reason Start Date Expiration Date Visits Requested Visits Authorized [id number] Authorized Auto-Generat ed Referral 03/03/2023 04/01/2024 1 1 [facility] for referral (narrative)* Outpatient Procedure (Routine) - Authorized Specialty Diagnoses / Procedures Referred By Contac t Referred To [facility] Diagnoses Cystic fibrosis (HCC) Procedures SPIROMETRY BASELINE ONLY SPMTRY W/VC EXPIRATORY CRISTINA W/WO MXML VOL VNTJ Sally Schneider APRN.TUNNEL WORKER [address] [place] [address] Respiratory [place] [address] [place], [place] [id number] Referral ID Status Reason Start Date Expiration Date Visits Requested Visits Authorized [id number] Authorized Auto-Generat ed Referral 03/10/2023 04/08/2024 1 1 [facility] for referral (narrative)* Diagnostic Procedure Only (Routine) - Pending Review Specialty Diagnoses / Procedures Referred By Contac t Referred To Contact XR IMAGING Diagnoses Cystic fibrosis (HCC) 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) Procedures XR ABDOMEN 1V SUPINE RADIOLOGIC EXAM ABDOMEN 1 VIEW Sally Schneider APRN.TUNNEL WORKER [address] [place] [address] Xr Imaging Referral ID Status Reason Start Date Expiration Date Visits Requested Visits Authorized [id number] Pending Review Auto-Generat ed Referral 05/19/2023 06/17/2024 1 1 [facility] for referral (narrative)* Outpatient Procedure (Routine) - Authorized Specialty Diagnoses / Procedures Referred By Contac t Referred To Contact [facility] Diagnoses Cystic fibrosis with pulmonary manifestations (HCC) Procedures SPIROMETRY BASELINE ONLY SPMTRY W/VC EXPIRATORY CRISTINA W/WO MXML VOL Jean Pierre Chase MD [address] [facility] [address] [place] [address] Respiratory [place] [address] [place] [address] Referral ID Status Reason Start Date Expiration Date Visits Requested Visits Authorized [id number] Authorized Auto-Generat ed Referral 06/04/2023 07/03/2024 1 1 [facility] for referral (narrative)* Diagnostic Procedure Only (Routine) - Closed Specialty Diagnoses / Procedures Referred By Contac t Referred To Contact XR IMAGING Diagnoses Cystic fibrosis (HCC) Procedures XR ABDOMEN 1V SUPINE RADIOLOGIC EXAM ABDOMEN 1 VIEW Sally Schneider APRN.CNP [address] [place] [id number] Xr Imaging Referral ID Status Reason Start Date Expiration Date V isits Requested Visits Authorized [id number] Closed Auto-Generate d Referral 07/02/2023 07/31/2024 1 1 [facility] for referral (narrative)* Diagnostic Procedure Only (Routine) - Pending Review Specialty Diagnoses / Procedures Referred By Contac t Referred To Contact XR IMAGING Diagnoses Osteoporosis without current pathological fracture, unspecified osteoporosis type Procedures DXA-AXIAL SKELETON WITH VFA DXA BONE DENSITY STUDY AXIAL SKELETON She Pete DO [address] [place] [address] Xr Imaging [facility] Referral ID Status Reason Start Date Expiration Date Visits Requested Visits Authorized [id number] Pending Review Auto-Generat ed Referral 08/01/2023 08/30/2024 1 1 [facility] for referral (narrative)* Outpatient Procedure (Routine) - Authorized Specialty Diagnoses / Procedures Referred By Contac t Referred To Contact [facility] Diagnoses Cystic fibrosis with pulmonary manifestations (HCC) Procedures SPIROMETRY BASELINE ONLY SPMTRY W/VC EXPIRATORY CRISTINA W/WO MXML VOL VNTJ She Pete DO [address] [place] [address] Respiratory [place] [address] [place] [address] Referral ID Status Reason Start Date Expiration Date Visits Requested Visits Authorized [id number] Authorized Auto-Generat ed Referral 10/23/2024 1 1 [...] to cystic fibrosis (HCC) She Pete DO [address] [place] [address] Referral ID Status Reason Start Date Expiration Date Visits Re quested Visits Authorized [id number] Closed 1 1 [facility] for referral (narrative)* Diagnostic Procedure Only (Routine) - Closed Specialty Diagnoses / Procedures Referred By Contac t Referred To Contact XR IMAGING Diagnoses Cystic fibrosis (HCC) 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) Procedures XR ABDOMEN 1V SUPINE RADIOLOGIC EXAM ABDOMEN 1 VIEW Sally Schneider APRN.CNP [address] [place] [address] Xr Imaging [place] [address] Referral ID Status Reason Start Date Expiration Date V isits Requested Visits Authorized [id number] Closed Auto-Generate d Referral 05/19/2023 06/17/2024 1 1 [facility] for referral (narrative)* Diagnostic Procedure Only (Routine) - Closed Specialty Diagnoses / Procedures Referred By Contac t Referred To Contact [facility] Diagnoses Cystic fibrosis with pulmonary manifestations (HCC) Procedures SPIROMETRY BASELINE ONLY SPMTRY W/VC EXPIRATORY CRISTINA W/WO MXML VOL VNTJ Jean Pierre Kilgore MD [address] [facility] [address] [place] [address] Respiratory [place] [address] [place], [place] [id number] Referral ID Status Reason Start Date Expiration Date Visits Re quested Visits Authorized [id number] Closed 05/05/2024 11/30/2024 1 1 [facility] for referral (narrative)* Outpatient Procedure (Routine) - Pending Review Specialty Diagnoses / Procedures Referred By Contac t Referred To Contact [facility] Diagnoses Cystic fibrosis (HCC) Procedures SPIROMETRY BASELINE ONLY SPMTRY W/VC EXPIRATORY CRISTINA W/WO MXML VOL VNTJ Sally Schneider APRN.TUNNEL WORKER [address] [place] [address] Res[facility] [place] [address] [place] [address] Referral ID Status Reason Start Date Expiration Date Visits Requested Visits Authorized [id number] Pending Review Auto-Generat ed Referral 05/05/2024 06/04/2025 1 1 * Diagnostic Procedure Only (Routine) - Pending Review Specialty Diagnoses / Procedures Referred By Contac t Referred To Contact XR IMAGING Diagnoses Cystic fibrosis (HCC) Procedures DXA-AXIAL SKELETON WITH VFA DXA BONE DENSITY STUDY AXIAL SKELETON Sally Schneider APRN.CNP [address] [place] [id number] Xr Imaging [facility]95 Referral ID Status Reason Start Date Expiration Date Visits Requested Visits Authorized [id number] Pending Review Auto-Generat ed Referral 05/05/2024 06/04/2025 1 1 [facility] for referral (narrative)* Outpatient Procedure (Routine) - Authorized Specialty Diagnoses / Procedures Referred By Contac t Referred To [facility] Diagnoses Cystic fibrosis with pulmonary manifestations (HCC) Procedures SPIROMETRY BASELINE ONLY SPMTRY W/VC EXPIRATORY CRISTINA W/WO MXML VOL Jean Pierre Chase MD [address] [facility] [address] [place] [address] Respiratory [place] [address] [place] [address] Referral ID Status Reason Start Date Expiration Date Visits Requested Visits Authorized [id number] Authorized Auto-Generat ed Referral 05/05/2024 06/04/2025 1 1 * Outpatient Procedure (Routine) - New Request Specialty Diagnoses / Procedures Referred By Contac t Referred To Contact [facility] Diagnoses Cystic fibrosis with pulmonary manifestations (HCC) Procedures SPIROMETRY BASELINE ONLY SPMTRY W/VC EXPIRATORY CRISTINA W/WO MXML VOL ADILENETJean Pierre Loera MD [address] [facility] [address] [place] [address] Res[facility] [place] [address] [place], [place] [phone] Referral ID Status Reason Start Date Expiration Date Visits Requested Visits Authorized [id number] New Request Auto-Generat ed Referral 05/05/2024 06/04/2025 1 1 [facility] for referral (narrative)* Outpatient Procedure (Routine) - Authorized Specialty Diagnoses / Procedures Referred By Contac t Referred To [facility] Diagnoses Cystic fibrosis (HCC) Procedures SPIROMETRY BASELINE ONLY SPMTRY W/VC EXPIRATORY CRISTINA W/WO MXML VOL ADILENETSally [place] APRN.TUNNEL WORKER [address] [place] [address] [address] Referral ID Status Reason Start Date Expiration Date Visits Requested Visits Authorized [id number] Authorized Auto-Generat ed Referral 09/02/2024 10/02/2025 1 1 [facility] for referral (narrative)* Outpatient Procedure (Routine) - New Request Specialty Diagnoses / Procedures Referred By Contac t Referred To [facility] Diagnoses Cystic fibrosis (HCC) Procedures SPIROMETRY BASELINE ONLY SPMTRY W/VC EXPIRATORY CRISTINA W/WO MXML VOL VNTSally [place] APRN.CNP [address] [facility] [address] [address] Referral ID Status Reason Start Date Expiration Date Visits Requested Visits Authorized [id number] New Request Auto-Generat ed Referral 10/09/2025 1 1 [facility] for referral (narrative)* Outpatient Procedure (Routine) - New Request Specialty Diagnoses / Procedures Referred By Contac t Referred To Contact [facility] Diagnoses Cystic fibrosis (HCC) Procedures SPIROMETRY BASELINE ONLY SPMTRY W/VC EXPIRATORY CRISTINA W/WO MXML VOL VNTJ Sally Schneider APRN.CNP [address] [place] [address] Respiratory [place] [phone] Referral ID Status Reason Start Date Expiration Date Visits Requested Visits Authorized [id number] New Request Auto-Generat ed Referral 10/06/2024 11/05/2025 1 1 [facility] for visit Narrative* Outpatient Procedure (Routine) - Closed Specialty Diagnoses / Procedures Referred By Contac t Referred To Contact [facility] Diagnoses Cystic fibrosis (HCC) Procedures SPIROMETRY BASELINE ONLY SPMTRY W/VC EXPIRATORY CRISTINA W/WO MXML VOL VNTJ She Pete, [address] [place] [address] [place] [phone] Referral ID Status Reason Start Date Expiration Date V isits Requested Visits Authorized [id number] Closed Auto-Generate d Referral 03/19/2023 04/17/2024 1 1 [facility] for visit Narrative* Diagnostic Procedure Only (Routine) - Closed Specialty Diagnoses / Procedures Referred By Contac t Referred To Contact XR IMAGING Diagnoses Osteoporosis without current pathological fracture, unspecified osteoporosis type Procedures DXA-AXIAL SKELETON WITH VFA DXA BONE DENSITY STUDY AXIAL SKELETON She Pete, [address] [place] [address] Xr Imaging [facility]95 Referral ID Status Reason Start Date Expiration Date V isits Requested Visits Authorized [id number] Closed Auto-Generate d Referral 08/01/2023 08/30/[address] [facility] Procedure Only (Routine) - Closed Specialty Diagnoses / Procedures Referred By Jennifer t Referred To Contact XR IMAGING Diagnoses Cystic fibrosis (HCC) 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) Procedures XR ABDOMEN 1V SUPINE RADIOLOGIC EXAM ABDOMEN 1 VIEW Sally Schneider, METALWORKING INSTRUCTOR.TUNNEL WORKER [address] [place] [address] Xr Imaging [place] [address] Referral ID Status Reason Start Date Expiration Date V isits Requested Visits Authorized [id number] Closed Auto-Generate d Referral 05/19/2023 06/17/[address] [facility] Summary Purpose Family History Relationship Condition [...] No July 05, 2020 10:20am Power of Public Works Technician No July 05 10:20am Advance Directive Response Recorded Date/ Time Living Will No July 05, 2020 9:20am Power of Public Works Technician No July 05 9:20am Latest Code Status [...] to cystic fibrosis (HCC) (HCC) Sally Schneider APRN.TUNNEL WORKER [address] [place] [address] Referral ID Status Reason Start Date Expiration Date Visits Re quested Visits Authorized [id number] Closed 1 1 Specialty Diagnoses / Procedures Referred By Contac t Referred To Contact Diagnoses Hyperkalemia Sally Schneider APRN.TUNNEL WORKER [address] [place] [address] Referral ID Status Reason Start Date Expiration Date V isits Requested Visits Authorized [id number] Authorized 08/27/2024 08/26/2025 1 1 Specialty Diagnoses / Procedures Referred By Contac t Referred To Contact Diagnoses 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 Sally Schneider APRN.TUNNEL WORKER [address] [place] [address] Referral ID Status Reason Start Date Expiration Date Visits Re quested Visits Authorized [id number] Closed 1 1 Referral ID Status Reason Start Date Expiration Date V isits Requested Visits Authorized [id number] Pending Review 08/19/2024 10/18/2024 1 1 Specialty Diagnoses / Procedures Referred By Contac t Referred To Contact MR IMAGING Diagnoses Abnormal results of liver function studies Procedures MRI PANC/MARYAM WO/W IVCON MRI ABDOMEN W/O & W/CONTRAST MATERIAL Mono Lan MD [address] [place] [address] Mr Imaging [place] [address] Referral ID Status Reason Start Date Expiration Date V isits Requested Visits Authorized [id number] Closed Auto-Generate d Referral 04/23/2024 06/22/2024 1 1 Specialty Diagnoses / Procedures Referred By Contac t Referred To Contact Rheumatology Diagnoses Cystic fibrosis (HCC) Procedures CONSULT TO RHEUMATOLOGY METABOLIC BONE OFFICE/OUTPATIENT NEW HIGH MDM 60-74 MINUTES Sally Schneider APRN.TUNNEL WORKER [address] [place] [address] Referral ID Status Reason Start Date Expiration Date Visits Requested Visits Authorized [id number] Authorized PCP Requested Referral 3 11/12/2024 1 1 Specialty Diagnoses / Procedures Referred By Contac t Referred To Contact Diagnoses Osteoporosis, unspecified osteoporosis type, unspecified pathological fracture presence Cystic fibrosis (HCC) Procedures CONSULT TO ENDO METABOLIC BONE OFFICE/OUTPATIENT [facility] 60-74 MINUTES She Pete, [address] [place] [address] Referral ID Status Reason Start Date Expiration Date Visits Requested Visits Authorized [id number] Authorized PCP Requested Referral 3 09/28/2024 1 1 Specialty Diagnoses / Procedures Referred By Contac t Referred To Contact Diagnoses Cystic fibrosis (HCC) Cystic fibrosis with pulmonary exacerbation (HCC) She Pete DO [address] [place] [address] Referral ID Status Reason Start Date Expiration Date Visits Re quested Visits Authorized [id number] Closed 1 1 Specialty Diagnoses / Procedures Referred By Contac t Referred To Contact [facility] Diagnoses Cystic fibrosis (HCC) Procedures SPIROMETRY BASELINE ONLY SPMTRY W/VC EXPIRATORY CRISTINA W/WO MXML VOL VNTJ She Pete DO [address] [place] [address] Respiratory [place] [address] [place] [address] Referral ID Status Reason Start Date Expiration Date Visits Requested Visits Authorized [id number] Authorized Auto-Generat ed Referral 03/19/2023 04/17/2024 1 1 Specialty Diagnoses / Procedures Referred By Contac t Referred To Contact Sally Schneider APRN.TUNNEL WORKER [address] [place] [address] Referral ID Status Reason Start Date Expiration Date Visits Re quested Visits Authorized [id number] Closed 1 1 Specialty Diagnoses / Procedures Referred By Contac t Referred To Contact Diagnoses Cystic fibrosis with pulmonary manifestations (HCC) Cystic fibrosis with liver disease (HCC) Procedures CONSULT TO HEPATOLOGY OFFICE/OUTPATIENT NEW HIGH MDM 60-74 MINUTES She Pete DO [address] [place] [address] Referral ID Status Reason Start Date Expiration Date Visits Requested Visits Authorized [id number] Authorized PCP Requested Referral 07/21/2022 07/21/2023 1 [...] DENSITY STUDY AXIAL SKELETON She Pete DO [address] [place] [address] Xr Imaging Referral ID Status Reason Start Date Expiration Date Visits Requested Visits Authorized [id number] Pending Review Auto-Generat ed Referral 07/21/2022 08/20/2023 [...] W/WO MXML VOL VNTJ She Pete DO [address] [place] [address] Respiratory [place] [address] [place] [address] Referral ID Status Reason Start Date Expiration Date Visits Requested Visits Authorized [id number] Pending Review Auto-Generat ed Referral 07/21/2022 08/20/2023 [...] W/WOM-MODE COMPL SPEC&COLR D She Pete DO [address] [place] [address] [facility] [place] [address] [place] [address] Referral ID Status Reason Start Date Expiration Date Visits Requested Visits Authorized [id number] Pending Review Auto-Generat ed Referral 07/21/2022 07/21/2023 [...] REAL TIME W/[place] [address] [place] [address] [facility] Referral ID Status Reason Start Date Expiration Date Visits Requested Visits Authorized [id number] Pending Review Auto-Generat ed Referral 07/21/2022 08/20/2023 1 1 Specialty Diagnoses / Procedures Referred By Contac t Referred To Contact [facility] Diagnoses Cystic fibrosis with liver disease (HCC) Procedures DDI VIBRATION CONTROLLED TRANSIENT ELASTOGRAPHY (VCTE) LIVER ELASTOGRAPHY W/O IMAG W/I&[place] [address] [place] [address] [facility] [place] [address] [place] [address] Referral ID Status Reason Start Date Expiration Date Visits Requested Visits Authorized [id number] Pending Review Auto-Generat ed Referral 07/21/2022 07/21/2023 1 1 Specialty Diagnoses / Procedures Referred By Contac t [place] [address] [place] [address] Referral ID Status Reason Start Date Expiration Date Visits Re quested Visits Authorized [id number] Closed 1 1 Chief Complaint and Reason [...] section and content) DATE CREATED AUTHOR 10/08/2018 [place] [facility] DATE CREATED AUTHOR AUTHOR'S ORGANIZ ATION 05/15/2022 [facility] DATE CREATED AUTHOR AUTHOR'S ORGANIZ ATION 05/22/2022 [facility] DATE CREATED AUTHOR AUTHOR'S ORGANIZ ATION 07/16/2023 [facility] DATE CREATED AUTHOR AUTHOR'S ORGANIZ ATION 10/18/2024 [facility] DATE CREATED AUTHOR AUTHOR'S ORGANIZ ATION 02/16/2025 [facility] DATE CREATED AUTHOR AUTHOR'S ORGANIZ ATION 04/17/2025 [facility] Source Comments (unrecognize d section and content) In the event this informatio n is protected by the Federal Confidentiality of Alcohol and Drug Abuse Patient Records regulations: The Federal rules restrict any use of the information to criminally investigate or prosecute any alcohol or drug abuse patient.[facility] the event this information is protected by the Federal Confidentiality of Alcohol and Drug Abuse Patient Records regulations: The Federal rules restrict any use of the information to criminally investigate or prosecute any alcohol or drug abuse patient.[facility] the event this information is protected by the Federal Confidentiality of Alcohol and Drug Abuse Patient Records regulations: The Federal rules restrict any use of the information to criminally investigate or prosecute any alcohol or drug abuse patient.[facility] the event this information is protected by the Federal Confidentiality of Alcohol and Drug Abuse Patient Records regulations: The Federal rules restrict any use of the information to criminally investigate or prosecute any alcohol or drug abuse patient.[facility] the event this information is protected by the Federal Confidentiality of Alcohol and Drug Abuse Patient Records regulations: The Federal rules restrict any use of the information to criminally investigate or prosecute any alcohol or drug abuse patient.[facility] the event this information is protected by the Federal Confidentiality of Alcohol and Drug Abuse Patient Records regulations: The Federal rules restrict any use of the information to criminally investigate or prosecute any alcohol or drug abuse patient.[facility] Hospital[facility] the event this information is protected by the Federal Confidentiality of Alcohol and Drug Abuse Patient Records regulations: The Federal rules restrict any use of the information to criminally investigate or prosecute any alcohol or drug abuse patient.[facility] the event this information is protected by the Federal Confidentiality of Alcohol and Drug Abuse Patient Records regulations: The Federal rules restrict any use of the information to criminally investigate or prosecute any alcohol or drug abuse patient.[facility] the event this information is protected by the Federal Confidentiality of Alcohol and Drug Abuse Patient Records regulations: The Federal rules restrict any use of the information to criminally investigate or prosecute any alcohol or drug abuse patient.[facility] the event this information is protected by the Federal Confidentiality of Alcohol and Drug Abuse Patient Records regulations: The Federal rules restrict any use of the information to criminally investigate or prosecute any alcohol or drug abuse patient.[facility] the event this information is protected by the Federal Confidentiality of Alcohol and Drug Abuse Patient Records regulations: The Federal rules restrict any use of the information to criminally investigate or prosecute any alcohol or drug abuse patient.[facility] Hospital[facility] the event this information is protected by the Federal Confidentiality of Alcohol and Drug Abuse Patient Records regulations: The Federal rules restrict any use of the information to criminally investigate or prosecute any alcohol or drug abuse patient.[facility] Hospital[facility] the event this information is protected by the Federal Confidentiality of Alcohol and Drug Abuse Patient Records regulations: The Federal rules restrict any use of the information to criminally investigate or prosecute any alcohol or drug abuse patient.[facility] Hospital[facility] the event this information is protected by the Federal Confidentiality of Alcohol and Drug Abuse Patient Records regulations: The Federal rules restrict any use of the information to criminally investigate or prosecute any alcohol or drug abuse patient.[facility] Hospital[facility] the event this information is protected by the Federal Confidentiality of Alcohol and Drug Abuse Patient Records regulations: The Federal rules restrict any use of the information to criminally investigate or prosecute any alcohol or drug abuse patient.[facility] Hospital[facility] the event this information is protected by the Federal Confidentiality of Alcohol and Drug Abuse Patient Records regulations: The Federal rules restrict any use of the information to criminally investigate or prosecute any alcohol or drug abuse patient.[facility] Hospital[facility] the event this information is protected by the Federal Confidentiality of Alcohol and Drug Abuse Patient Records regulations: The Federal rules restrict any use of the information to criminally investigate or prosecute any alcohol or drug abuse patient.[facility] Hospital[facility] the event this information is protected by the Federal Confidentiality of Alcohol and Drug Abuse Patient Records regulations: The Federal rules restrict any use of the information to criminally investigate or prosecute any alcohol or drug abuse patient.[facility] HospitalIn the event this information is protected by the Federal Confidentiality of Alcohol and Drug Abuse Patient Records regulations: The Federal rules restrict any use of the information to criminally investigate or prosecute any alcohol or drug abuse patient.[facility] HospitalIn the event this information is protected by the Federal Confidentiality of Alcohol and Drug Abuse Patient Records regulations: The Federal rules restrict any use of the information to criminally investigate or prosecute any alcohol or drug abuse patient.[facility] HospitalIn the event this information is protected by the Federal Confidentiality of Alcohol and Drug Abuse Patient Records regulations: The Federal rules restrict any use of the information to criminally investigate or prosecute any alcohol or drug abuse patient.[facility] HospitalIn the event this information is protected by the Federal Confidentiality of Alcohol and Drug Abuse Patient Records regulations: The Federal rules restrict any use of the information to criminally investigate or prosecute any alcohol or drug abuse patient.[facility] HospitalIn the event this information is protected by the Federal Confidentiality of Alcohol and Drug Abuse Patient Records regulations: The Federal rules restrict any use of the information to criminally investigate or prosecute any alcohol or drug abuse patient.[facility] HospitalIn the event this information is protected by the Federal Confidentiality of Alcohol and Drug Abuse Patient Records regulations: The Federal rules restrict any use of the information to criminally investigate or prosecute any alcohol or drug abuse patient.[facility] HospitalIn the event this information is protected by the Federal Confidentiality of Alcohol and Drug Abuse Patient Records regulations: The Federal rules restrict any use of the information to criminally investigate or prosecute any alcohol or drug abuse patient.[facility] HospitalIn the event this information is protected by the Federal Confidentiality of Alcohol and Drug Abuse Patient Records regulations: The Federal rules restrict any use of the information to criminally investigate or prosecute any alcohol or drug abuse patient.[facility] HospitalIn the event this information is protected by the Federal Confidentiality of Alcohol and Drug Abuse Patient Records regulations: The Federal rules restrict any use of the information to criminally investigate or prosecute any alcohol or drug abuse patient.[facility] HospitalIn the event this information is protected by the Federal Confidentiality of Alcohol and Drug Abuse Patient Records regulations: The Federal rules restrict any use of the information to criminally investigate or prosecute any alcohol or drug abuse patient.[facility] HospitalIn the event this information is protected by the Federal Confidentiality of Alcohol and Drug Abuse Patient Records regulations: The Federal rules restrict any use of the information to criminally investigate or prosecute any alcohol or drug abuse patient.[facility] HospitalIn the event this information is protected by the Federal Confidentiality of Alcohol and Drug Abuse Patient Records regulations: The Federal rules restrict any use of the information to criminally investigate or prosecute any alcohol or drug abuse patient.[facility] HospitalIn the event this information is protected by the Federal Confidentiality of Alcohol and Drug Abuse Patient Records regulations: The Federal rules restrict any use of the information to criminally investigate or prosecute any alcohol or drug abuse patient.[facility] HospitalIn the event this information is protected by the Federal Confidentiality of Alcohol and Drug Abuse Patient Records regulations: The Federal rules restrict any use of the information to criminally investigate or prosecute any alcohol or drug abuse patient.[facility] HospitalIn the event this information is protected by the Federal Confidentiality of Alcohol and Drug Abuse Patient Records regulations: The Federal rules restrict any use of the information to criminally investigate or prosecute any alcohol or drug abuse patient.[facility] HospitalIn the event this information is protected by the Federal Confidentiality of Alcohol and Drug Abuse Patient Records regulations: The Federal rules restrict any use of the information to criminally investigate or prosecute any alcohol or drug abuse patient.[facility] HospitalIn the event this information is protected by the Federal Confidentiality of Alcohol and Drug Abuse Patient Records regulations: The Federal rules restrict any use of the information to criminally investigate or prosecute any alcohol or drug abuse patient.[facility] HospitalIn the event this information is protected by the Federal Confidentiality of Alcohol and Drug Abuse Patient Records regulations: The Federal rules restrict any use of the information to criminally investigate or prosecute any alcohol or drug abuse patient.[facility] HospitalIn the event this information is protected by the Federal Confidentiality of Alcohol and Drug Abuse Patient Records regulations: The Federal rules restrict any use of the information to criminally investigate or prosecute any alcohol or drug abuse patient.[facility] HospitalIn the event this information is protected by the Federal Confidentiality of Alcohol and Drug Abuse Patient Records regulations: The Federal rules restrict any use of the information to criminally investigate or prosecute any alcohol or drug abuse patient.[facility] HospitalIn the event this information is protected by the Federal Confidentiality of Alcohol and Drug Abuse Patient Records regulations: The Federal rules restrict any use of the information to criminally investigate or prosecute any alcohol or drug abuse patient.[facility] HospitalIn the event this information is protected by the Federal Confidentiality of Alcohol and Drug Abuse Patient Records regulations: The Federal rules restrict any use of the information to criminally investigate or prosecute any alcohol or drug abuse patient.[facility] the event this information is protected by the Federal Confidentiality of Alcohol and Drug Abuse Patient Records regulations: The Federal rules restrict any use of the information to criminally investigate or prosecute any alcohol or drug abuse patient.[facility] HospitalIn the event this information is protected by the Federal Confidentiality of Alcohol and Drug Abuse Patient Records regulations: The Federal rules restrict any use of the information to criminally investigate or prosecute any alcohol or drug abuse patient.[facility] HospitalIn the event this information is protected by the Federal Confidentiality of Alcohol and Drug Abuse Patient Records regulations: The Federal rules restrict any use of the information to criminally investigate or prosecute any alcohol or drug abuse patient.[facility] HospitalIn the event this information is protected by the Federal Confidentiality of Alcohol and Drug Abuse Patient Records regulations: The Federal rules restrict any use of the information to criminally investigate or prosecute any alcohol or drug abuse patient.[facility] HospitalIn the event this information is protected by the Federal Confidentiality of Alcohol and Drug Abuse Patient Records regulations: The Federal rules restrict any use of the information to criminally investigate or prosecute any alcohol or drug abuse patient.[facility] HospitalIn the event this information is protected by the Federal Confidentiality of Alcohol and Drug Abuse Patient Records regulations: The Federal rules restrict any use of the information to criminally investigate or prosecute any alcohol or drug abuse patient.[facility] HospitalIn the event this information is protected by the Federal Confidentiality of Alcohol and Drug Abuse Patient Records regulations: The Federal rules restrict any use of the information to criminally investigate or prosecute any alcohol or drug abuse patient.[facility] HospitalIn the event this information is protected by the Federal Confidentiality of Alcohol and Drug Abuse Patient Records regulations: The Federal rules restrict any use of the information to criminally investigate or prosecute any alcohol or drug abuse patient.[facility] HospitalIn the event this information is protected by the Federal Confidentiality of Alcohol and Drug Abuse Patient Records regulations: The Federal rules restrict any use of the information to criminally investigate or prosecute any alcohol or drug abuse patient.[facility] HospitalIn the event this information is protected by the Federal Confidentiality of Alcohol and Drug Abuse Patient Records regulations: The Federal rules restrict any use of the information to criminally investigate or prosecute any alcohol or drug abuse patient.[facility] HospitalIn the event this information is protected by the Federal Confidentiality of Alcohol and Drug Abuse Patient Records regulations: The Federal rules restrict any use of the information to criminally investigate or prosecute any alcohol or drug abuse patient.[facility] HospitalIn the event this information is protected by the Federal Confidentiality of Alcohol and Drug Abuse Patient Records regulations: The Federal rules restrict any use of the information to criminally investigate or prosecute any alcohol or drug abuse patient.[facility] HospitalIn the event this information is protected by the Federal Confidentiality of Alcohol and Drug Abuse Patient Records regulations: The Federal rules restrict any use of the information to criminally investigate or prosecute any alcohol or drug abuse patient.[facility] HospitalIn the event this information is protected by the Federal Confidentiality of Alcohol and Drug Abuse Patient Records regulations: The Federal rules restrict any use of the information to criminally investigate or prosecute any alcohol or drug abuse patient.[facility] HospitalIn the event this information is protected by the Federal Confidentiality of Alcohol and Drug Abuse Patient Records regulations: The Federal rules restrict any use of the information to criminally investigate or prosecute any alcohol or drug abuse patient.[facility] HospitalIn the event this information is protected by the Federal Confidentiality of Alcohol and Drug Abuse Patient Records regulations: The Federal rules restrict any use of the information to criminally investigate or prosecute any alcohol or drug abuse patient.[facility] HospitalIn the event this information is protected by the Federal Confidentiality of Alcohol and Drug Abuse Patient Records regulations: The Federal rules restrict any use of the information to criminally investigate or prosecute any alcohol or drug abuse patient.[facility] HospitalIn the event this information is protected by the Federal Confidentiality of Alcohol and Drug Abuse Patient Records regulations: The Federal rules restrict any use of the information to criminally investigate or prosecute any alcohol or drug abuse patient.[facility] HospitalIn the event this information is protected by the Federal Confidentiality of Alcohol and Drug Abuse Patient Records regulations: The Federal rules restrict any use of the information to criminally investigate or prosecute any alcohol or drug abuse patient.[facility] HospitalIn the event this information is protected by the Federal Confidentiality of Alcohol and Drug Abuse Patient Records regulations: The Federal rules restrict any use of the information to criminally investigate or prosecute any alcohol or drug abuse patient.[facility] HospitalIn the event this information is protected by the Federal Confidentiality of Alcohol and Drug Abuse Patient Records regulations: The Federal rules restrict any use of the information to criminally investigate or prosecute any alcohol or drug abuse patient.[facility] HospitalIn the event this information is protected by the Federal Confidentiality of Alcohol and Drug Abuse Patient Records regulations: The Federal rules restrict any use of the information to criminally investigate or prosecute any alcohol or drug abuse patient.[facility] HospitalIn the event this information is protected by the Federal Confidentiality of Alcohol and Drug Abuse Patient Records regulations: The Federal rules restrict any use of the information to criminally investigate or prosecute any alcohol or drug abuse patient.[facility] HospitalIn the event this information is protected by the Federal Confidentiality of Alcohol and Drug Abuse Patient Records regulations: The Federal rules restrict any use of the information to criminally investigate or prosecute any alcohol or drug abuse patient.[facility] HospitalIn the event this information is protected by the Federal Confidentiality of Alcohol and Drug Abuse Patient Records regulations: The Federal rules restrict any use of the information to criminally investigate or prosecute any alcohol or drug abuse patient.[facility] HospitalIn the event this information is protected by the Federal Confidentiality of Alcohol and Drug Abuse Patient Records regulations: The Federal rules restrict any use of the information to criminally investigate or prosecute any alcohol or drug abuse patient.[facility] HospitalIn the event this information is protected by the Federal Confidentiality of Alcohol and Drug Abuse Patient Records regulations: The Federal rules restrict any use of the information to criminally investigate or prosecute any alcohol or drug abuse patient.[facility] HospitalIn the event this information is protected by the Federal Confidentiality of Alcohol and Drug Abuse Patient Records regulations: The Federal rules restrict any use of the information to criminally investigate or prosecute any alcohol or drug abuse patient.[facility] HospitalIn the event this information is protected by the Federal Confidentiality of Alcohol and Drug Abuse Patient Records regulations: The Federal rules restrict any use of the information to criminally investigate or prosecute any alcohol or drug abuse patient.[facility] HospitalIn the event this information is protected by the Federal Confidentiality of Alcohol and Drug Abuse Patient Records regulations: The Federal rules restrict any use of the information to criminally investigate or prosecute any alcohol or drug abuse patient.[facility] HospitalIn the event this information is protected by the Federal Confidentiality of Alcohol and Drug Abuse Patient Records regulations: The Federal rules restrict any use of the information to criminally investigate or prosecute any alcohol or drug abuse patient.[facility] HospitalIn the event this information is protected by the Federal Confidentiality of Alcohol and Drug Abuse Patient Records regulations: The Federal rules restrict any use of the information to criminally investigate or prosecute any alcohol or drug abuse patient.[facility] HospitalIn the event this information is protected by the Federal Confidentiality of Alcohol and Drug Abuse Patient Records regulations: The Federal rules restrict any use of the information to criminally investigate or prosecute any alcohol or drug abuse patient.[facility] HospitalIn the event this information is protected by the Federal Confidentiality of Alcohol and Drug Abuse Patient Records regulations: The Federal rules restrict any use of the information to criminally investigate or prosecute any alcohol or drug abuse patient.[facility] HospitalIn the event this information is protected by the Federal Confidentiality of Alcohol and Drug Abuse Patient Records regulations: The Federal rules restrict any use of the information to criminally investigate or prosecute any alcohol or drug abuse patient.[facility] HospitalIn the event this information is protected by the Federal Confidentiality of Alcohol and Drug Abuse Patient Records regulations: The Federal rules restrict any use of the information to criminally investigate or prosecute any alcohol or drug abuse patient.[facility] HospitalIn the event this information is protected by the Federal Confidentiality of Alcohol and Drug Abuse Patient Records regulations: The Federal rules restrict any use of the information to criminally investigate or prosecute any alcohol or drug abuse patient.[facility] HospitalIn the event this information is protected by the Federal Confidentiality of Alcohol and Drug Abuse Patient Records regulations: The Federal rules restrict any use of the information to criminally investigate or prosecute any alcohol or drug abuse patient.[facility] HospitalIn the event this information is protected by the Federal Confidentiality of Alcohol and Drug Abuse Patient Records regulations: The Federal rules restrict any use of the information to criminally investigate or prosecute any alcohol or drug abuse patient.[facility] HospitalIn the event this information is protected by the Federal Confidentiality of Alcohol and Drug Abuse Patient Records regulations: The Federal rules restrict any use of the information to criminally investigate or prosecute any alcohol or drug abuse patient.[facility] HospitalIn the event this information is protected by the Federal Confidentiality of Alcohol and Drug Abuse Patient Records regulations: The Federal rules restrict any use of the information to criminally investigate or prosecute any alcohol or drug abuse patient.[facility] HospitalIn the event this information is protected by the Federal Confidentiality of Alcohol and Drug Abuse Patient Records regulations: The Federal rules restrict any use of the information to criminally investigate or prosecute any alcohol or drug abuse patient.[facility] HospitalIn the event this information is protected by the Federal Confidentiality of Alcohol and Drug Abuse Patient Records regulations: The Federal rules restrict any use of the information to criminally investigate or prosecute any alcohol or drug abuse patient.[facility] HospitalIn the event this information is protected by the Federal Confidentiality of Alcohol and Drug Abuse Patient Records regulations: The Federal rules restrict any use of the information to criminally investigate or prosecute any alcohol or drug abuse patient.[facility] HospitalIn the event this information is protected by the Federal Confidentiality of Alcohol and Drug Abuse Patient Records regulations: The Federal rules restrict any use of the information to criminally investigate or prosecute any alcohol or drug abuse patient.[facility] HospitalIn the event this information is protected by the Federal Confidentiality of Alcohol and Drug Abuse Patient Records regulations: The Federal rules restrict any use of the information to criminally investigate or prosecute any alcohol or drug abuse patient.[facility] HospitalIn the event this information is protected by the Federal Confidentiality of Alcohol and Drug Abuse Patient Records regulations: The Federal rules restrict any use of the information to criminally investigate or prosecute any alcohol or drug abuse patient.[facility] HospitalIn the event this information is protected by the Federal Confidentiality of Alcohol and Drug Abuse Patient Records regulations: The Federal rules restrict any use of the information to criminally investigate or prosecute any alcohol or drug abuse patient.[facility] HospitalIn the event this information is protected by the Federal Confidentiality of Alcohol and Drug Abuse Patient Records regulations: The Federal rules restrict any use of the information to criminally investigate or prosecute any alcohol or drug abuse patient.[facility] HospitalIn the event this information is protected by the Federal Confidentiality of Alcohol and Drug Abuse Patient Records regulations: The Federal rules restrict any use of the information to criminally investigate or prosecute any alcohol or drug abuse patient.[facility] HospitalIn the event this information is protected by the Federal Confidentiality of Alcohol and Drug Abuse Patient Records regulations: The Federal rules restrict any use of the information to criminally investigate or prosecute any alcohol or drug abuse patient.[facility] HospitalIn the event this information is protected by the Federal Confidentiality of Alcohol and Drug Abuse Patient Records regulations: The Federal rules restrict any use of the information to criminally investigate or prosecute any alcohol or drug abuse patient.[facility] HospitalIn the event this information is protected by the Federal Confidentiality of Alcohol and Drug Abuse Patient Records regulations: The Federal rules restrict any use of the information to criminally investigate or prosecute any alcohol or drug abuse patient.[facility] HospitalIn the event this information is protected by the Federal Confidentiality of Alcohol and Drug Abuse Patient Records regulations: The Federal rules restrict any use of the information to criminally investigate or prosecute any alcohol or drug abuse patient.[facility] HospitalIn the event this information is protected by the Federal Confidentiality of Alcohol and Drug Abuse Patient Records regulations: The Federal rules restrict any use of the information to criminally investigate or prosecute any alcohol or drug abuse patient.[facility] HospitalIn the event this information is protected by the Federal Confidentiality of Alcohol and Drug Abuse Patient Records regulations: The Federal rules restrict any use of the information to criminally investigate or prosecute any alcohol or drug abuse patient.[facility] HospitalIn the event this information is protected by the Federal Confidentiality of Alcohol and Drug Abuse Patient Records regulations: The Federal rules restrict any use of the information to criminally investigate or prosecute any alcohol or drug abuse patient.[facility] HospitalIn the event this information is protected by the Federal Confidentiality of Alcohol and Drug Abuse Patient Records regulations: The Federal rules restrict any use of the information to criminally investigate or prosecute any alcohol or drug abuse patient.[facility] HospitalIn the event this information is protected by the Federal Confidentiality of Alcohol and Drug Abuse Patient Records regulations: The Federal rules restrict any use of the information to criminally investigate or prosecute any alcohol or drug abuse patient.[facility] HospitalIn the event this information is protected by the Federal Confidentiality of Alcohol and Drug Abuse Patient Records regulations: The Federal rules restrict any use of the information to criminally investigate or prosecute any alcohol or drug abuse patient.[facility] HospitalIn the event this information is protected by the Federal Confidentiality of Alcohol and Drug Abuse Patient Records regulations: The Federal rules restrict any use of the information to criminally investigate or prosecute any alcohol or drug abuse patient.[facility] HospitalIn the event this information is protected by the Federal Confidentiality of Alcohol and Drug Abuse Patient Records regulations: The Federal rules restrict any use of the information to criminally investigate or prosecute any alcohol or drug abuse patient.[facility] HospitalIn the event this information is protected by the Federal Confidentiality of Alcohol and Drug Abuse Patient Records regulations: The Federal rules restrict any use of the information to criminally investigate or prosecute any alcohol or drug abuse patient.[facility] HospitalIn the event this information is protected by the Federal Confidentiality of Alcohol and Drug Abuse Patient Records regulations: The Federal rules restrict any use of the information to criminally investigate or prosecute any alcohol or drug abuse patient.[facility] HospitalIn the event this information is protected by the Federal Confidentiality of Alcohol and Drug Abuse Patient Records regulations: The Federal rules restrict any use of the information to criminally investigate or prosecute any alcohol or drug abuse patient.[facility] HospitalIn the event this information is protected by the Federal Confidentiality of Alcohol and Drug Abuse Patient Records regulations: The Federal rules restrict any use of the information to criminally investigate or prosecute any alcohol or drug abuse patient.[facility] HospitalIn the event this information is protected by the Federal Confidentiality of Alcohol and Drug Abuse Patient Records regulations: The Federal rules restrict any use of the information to criminally investigate or prosecute any alcohol or drug abuse patient.[facility] HospitalIn the event this information is protected by the Federal Confidentiality of Alcohol and Drug Abuse Patient Records regulations: The Federal rules restrict any use of the information to criminally investigate or prosecute any alcohol or drug abuse patient.[facility] HospitalIn the event this information is protected by the Federal Confidentiality of Alcohol and Drug Abuse Patient Records regulations: The Federal rules restrict any use of the information to criminally investigate or prosecute any alcohol or drug abuse patient.[facility] HospitalIn the event this information is protected by the Federal Confidentiality of Alcohol and Drug Abuse Patient Records regulations: The Federal rules restrict any use of the information to criminally investigate or prosecute any alcohol or drug abuse patient.[facility] HospitalIn the event this information is protected by the Federal Confidentiality of Alcohol and Drug Abuse Patient Records regulations: The Federal rules restrict any use of the information to criminally investigate or prosecute any alcohol or drug abuse patient.[facility] HospitalIn the event this information is protected by the Federal Confidentiality of Alcohol and Drug Abuse Patient Records regulations: The Federal rules restrict any use of the information to criminally investigate or prosecute any alcohol or drug abuse patient.[facility] HospitalIn the event this information is protected by the Federal Confidentiality of Alcohol and Drug Abuse Patient Records regulations: The Federal rules restrict any use of the information to criminally investigate or prosecute any alcohol or drug abuse patient.[facility] HospitalIn the event this information is protected by the Federal Confidentiality of Alcohol and Drug Abuse Patient Records regulations: The Federal rules restrict any use of the information to criminally investigate or prosecute any alcohol or drug abuse patient.[facility] HospitalIn the event this information is protected by the Federal Confidentiality of Alcohol and Drug Abuse Patient Records regulations: The Federal rules restrict any use of the information to criminally investigate or prosecute any alcohol or drug abuse patient.[facility] HospitalIn the event this information is protected by the Federal Confidentiality of Alcohol and Drug Abuse Patient Records regulations: The Federal rules restrict any use of the information to criminally investigate or prosecute any alcohol or drug abuse patient.[facility] HospitalIn the event this information is protected by the Federal Confidentiality of Alcohol and Drug Abuse Patient Records regulations: The Federal rules restrict any use of the information to criminally investigate or prosecute any alcohol or drug abuse patient.[facility] HospitalIn the event this information is protected by the Federal Confidentiality of Alcohol and Drug Abuse Patient Records regulations: The Federal rules restrict any use of the information to criminally investigate or prosecute any alcohol or drug abuse patient.[facility] HospitalIn the event this information is protected by the Federal Confidentiality of Alcohol and Drug Abuse Patient Records regulations: The Federal rules restrict any use of the information to criminally investigate or prosecute any alcohol or drug abuse patient.[facility] HospitalIn the event this information is protected by the Federal Confidentiality of Alcohol and Drug Abuse Patient Records regulations: The Federal rules restrict any use of the information to criminally investigate or prosecute any alcohol or drug abuse patient.[facility] HospitalIn the event this information is protected by the Federal Confidentiality of Alcohol and Drug Abuse Patient Records regulations: The Federal rules restrict any use of the information to criminally investigate or prosecute any alcohol or drug abuse patient.[facility] HospitalIn the event this information is protected by the Federal Confidentiality of Alcohol and Drug Abuse Patient Records regulations: The Federal rules restrict any use of the information to criminally investigate or prosecute any alcohol or drug abuse patient.[facility] HospitalIn the event this information is protected by the Federal Confidentiality of Alcohol and Drug Abuse Patient Records regulations: The Federal rules restrict any use of the information to criminally investigate or prosecute any alcohol or drug abuse patient.[facility] HospitalIn the event this information is protected by the Federal Confidentiality of Alcohol and Drug Abuse Patient Records regulations: The Federal rules restrict any use of the information to criminally investigate or prosecute any alcohol or drug abuse patient.[facility] HospitalIn the event this information is protected by the Federal Confidentiality of Alcohol and Drug Abuse Patient Records regulations: The Federal rules restrict any use of the information to criminally investigate or prosecute any alcohol or drug abuse patient.[facility] HospitalIn the event this information is protected by the Federal Confidentiality of Alcohol and Drug Abuse Patient Records regulations: The Federal rules restrict any use of the information to criminally investigate or prosecute any alcohol or drug abuse patient.[facility] the event this information is protected by the Federal Confidentiality of Alcohol and Drug Abuse Patient Records regulations: The Federal rules restrict any use of the information to criminally investigate or prosecute any alcohol or drug abuse patient.[facility] HospitalIn the event this information is protected by the Federal Confidentiality of Alcohol and Drug Abuse Patient Records regulations: The Federal rules restrict any use of the information to criminally investigate or prosecute any alcohol or drug abuse patient.[facility] HospitalIn the event this information is protected by the Federal Confidentiality of Alcohol and Drug Abuse Patient Records regulations: The Federal rules restrict any use of the information to criminally investigate or prosecute any alcohol or drug abuse patient.[facility] HospitalIn the event this information is protected by the Federal Confidentiality of Alcohol and Drug Abuse Patient Records regulations: The Federal rules restrict any use of the information to criminally investigate or prosecute any alcohol or drug abuse patient.[facility] HospitalIn the event this information is protected by the Federal Confidentiality of Alcohol and Drug Abuse Patient Records regulations: The Federal rules restrict any use of the information to criminally investigate or prosecute any alcohol or drug abuse patient.[facility] HospitalIn the event this information is protected by the Federal Confidentiality of Alcohol and Drug Abuse Patient Records regulations: The Federal rules restrict any use of the information to criminally investigate or prosecute any alcohol or drug abuse patient.[facility] HospitalIn the event this information is protected by the Federal Confidentiality of Alcohol and Drug Abuse Patient Records regulations: The Federal rules restrict any use of the information to criminally investigate or prosecute any alcohol or drug abuse patient.[facility] HospitalIn the event this information is protected by the Federal Confidentiality of Alcohol and Drug Abuse Patient Records regulations: The Federal rules restrict any use of the information to criminally investigate or prosecute any alcohol or drug abuse patient.[facility] HospitalIn the event this information is protected by the Federal Confidentiality of Alcohol and Drug Abuse Patient Records regulations: The Federal rules restrict any use of the information to criminally investigate or prosecute any alcohol or drug abuse patient.[facility] HospitalIn the event this information is protected by the Federal Confidentiality of Alcohol and Drug Abuse Patient Records regulations: The Federal rules restrict any use of the information to criminally investigate or prosecute any alcohol or drug abuse patient.[facility] HospitalIn the event this information is protected by the Federal Confidentiality of Alcohol and Drug Abuse Patient Records regulations: The Federal rules restrict any use of the information to criminally investigate or prosecute any alcohol or drug abuse patient.[facility] HospitalIn the event this information is protected by the Federal Confidentiality of Alcohol and Drug Abuse Patient Records regulations: The Federal rules restrict any use of the information to criminally investigate or prosecute any alcohol or drug abuse patient.[facility] HospitalIn the event this information is protected by the Federal Confidentiality of Alcohol and Drug Abuse Patient Records regulations: The Federal rules restrict any use of the information to criminally investigate or prosecute any alcohol or drug abuse patient.[facility] HospitalIn the event this information is protected by the Federal Confidentiality of Alcohol and Drug Abuse Patient Records regulations: The Federal rules restrict any use of the information to criminally investigate or prosecute any alcohol or drug abuse patient.[facility] HospitalIn the event this information is protected by the Federal Confidentiality of Alcohol and Drug Abuse Patient Records regulations: The Federal rules restrict any use of the information to criminally investigate or prosecute any alcohol or drug abuse patient.[facility] HospitalIn the event this information is protected by the Federal Confidentiality of Alcohol and Drug Abuse Patient Records regulations: The Federal rules restrict any use of the information to criminally investigate or prosecute any alcohol or drug abuse patient.[facility] HospitalIn the event this information is protected by the Federal Confidentiality of Alcohol and Drug Abuse Patient Records regulations: The Federal rules restrict any use of the information to criminally investigate or prosecute any alcohol or drug abuse patient.[facility] HospitalIn the event this information is protected by the Federal Confidentiality of Alcohol and Drug Abuse Patient Records regulations: The Federal rules restrict any use of the information to criminally investigate or prosecute any alcohol or drug abuse patient.[facility] HospitalIn the event this information is protected by the Federal Confidentiality of Alcohol and Drug Abuse Patient Records regulations: The Federal rules restrict any use of the information to criminally investigate or prosecute any alcohol or drug abuse patient.[facility] HospitalIn the event this information is protected by the Federal Confidentiality of Alcohol and Drug Abuse Patient Records regulations: The Federal rules restrict any use of the information to criminally investigate or prosecute any alcohol or drug abuse patient.[facility] HospitalIn the event this information is protected by the Federal Confidentiality of Alcohol and Drug Abuse Patient Records regulations: The Federal rules restrict any use of the information to criminally investigate or prosecute any alcohol or drug abuse patient.[facility] HospitalIn the event this information is protected by the Federal Confidentiality of Alcohol and Drug Abuse Patient Records regulations: The Federal rules restrict any use of the information to criminally investigate or prosecute any alcohol or drug abuse patient.[facility] HospitalIn the event this information is protected by the Federal Confidentiality of Alcohol and Drug Abuse Patient Records regulations: The Federal rules restrict any use of the information to criminally investigate or prosecute any alcohol or drug abuse patient.[facility] HospitalIn the event this information is protected by the Federal Confidentiality of Alcohol and Drug Abuse Patient Records regulations: The Federal rules restrict any use of the information to criminally investigate or prosecute any alcohol or drug abuse patient.[facility] HospitalIn the event this information is protected by the Federal Confidentiality of Alcohol and Drug Abuse Patient Records regulations: The Federal rules restrict any use of the information to criminally investigate or prosecute any alcohol or drug abuse patient.[facility] HospitalIn the event this information is protected by the Federal Confidentiality of Alcohol and Drug Abuse Patient Records regulations: The Federal rules restrict any use of the information to criminally investigate or prosecute any alcohol or drug abuse patient.[facility] HospitalIn the event this information is protected by the Federal Confidentiality of Alcohol and Drug Abuse Patient Records regulations: The Federal rules restrict any use of the information to criminally investigate or prosecute any alcohol or drug abuse patient.[facility] HospitalIn the event this information is protected by the Federal Confidentiality of Alcohol and Drug Abuse Patient Records regulations: The Federal rules restrict any use of the information to criminally investigate or prosecute any alcohol or drug abuse patient.[facility] HospitalIn the event this information is protected by the Federal Confidentiality of Alcohol and Drug Abuse Patient Records regulations: The Federal rules restrict any use of the information to criminally investigate or prosecute any alcohol or drug abuse patient.[facility] HospitalIn the event this information is protected by the Federal Confidentiality of Alcohol and Drug Abuse Patient Records regulations: The Federal rules restrict any use of the information to criminally investigate or prosecute any alcohol or drug abuse patient.[facility] HospitalIn the event this information is protected by the Federal Confidentiality of Alcohol and Drug Abuse Patient Records regulations: The Federal rules restrict any use of the information to criminally investigate or prosecute any alcohol or drug abuse patient.[facility] HospitalIn the event this information is protected by the Federal Confidentiality of Alcohol and Drug Abuse Patient Records regulations: The Federal rules restrict any use of the information to criminally investigate or prosecute any alcohol or drug abuse patient.[facility] HospitalIn the event this information is protected by the Federal Confidentiality of Alcohol and Drug Abuse Patient Records regulations: The Federal rules restrict any use of the information to criminally investigate or prosecute any alcohol or drug abuse patient.[facility] HospitalIn the event this information is protected by the Federal Confidentiality of Alcohol and Drug Abuse Patient Records regulations: The Federal rules restrict any use of the information to criminally investigate or prosecute any alcohol or drug abuse patient.[facility] HospitalIn the event this information is protected by the Federal Confidentiality of Alcohol and Drug Abuse Patient Records regulations: The Federal rules restrict any use of the information to criminally investigate or prosecute any alcohol or drug abuse patient.[facility] HospitalIn the event this information is protected by the Federal Confidentiality of Alcohol and Drug Abuse Patient Records regulations: The Federal rules restrict any use of the information to criminally investigate or prosecute any alcohol or drug abuse patient.[facility] HospitalIn the event this information is protected by the Federal Confidentiality of Alcohol and Drug Abuse Patient Records regulations: The Federal rules restrict any use of the information to criminally investigate or prosecute any alcohol or drug abuse patient.[facility] HospitalIn the event this information is protected by the Federal Confidentiality of Alcohol and Drug Abuse Patient Records regulations: The Federal rules restrict any use of the information to criminally investigate or prosecute any alcohol or drug abuse patient.[facility] HospitalIn the event this information is protected by the Federal Confidentiality of Alcohol and Drug Abuse Patient Records regulations: The Federal rules restrict any use of the information to criminally investigate or prosecute any alcohol or drug abuse patient.[facility] HospitalIn the event this information is protected by the Federal Confidentiality of Alcohol and Drug Abuse Patient Records regulations: The Federal rules restrict any use of the information to criminally investigate or prosecute any alcohol or drug abuse patient.[facility] HospitalIn the event this information is protected by the Federal Confidentiality of Alcohol and Drug Abuse Patient Records regulations: The Federal rules restrict any use of the information to criminally investigate or prosecute any alcohol or drug abuse patient.[facility] HospitalIn the event this information is protected by the Federal Confidentiality of Alcohol and Drug Abuse Patient Records regulations: The Federal rules restrict any use of the information to criminally investigate or prosecute any alcohol or drug abuse patient.[facility] HospitalIn the event this information is protected by the Federal Confidentiality of Alcohol and Drug Abuse Patient Records regulations: The Federal rules restrict any use of the information to criminally investigate or prosecute any alcohol or drug abuse patient.[facility] HospitalIn the event this information is protected by the Federal Confidentiality of Alcohol and Drug Abuse Patient Records regulations: The Federal rules restrict any use of the information to criminally investigate or prosecute any alcohol or drug abuse patient.[facility] HospitalIn the event this information is protected by the Federal Confidentiality of Alcohol and Drug Abuse Patient Records regulations: The Federal rules restrict any use of the information to criminally investigate or prosecute any alcohol or drug abuse patient.[facility] HospitalIn the event this information is protected by the Federal Confidentiality of Alcohol and Drug Abuse Patient Records regulations: The Federal rules restrict any use of the information to criminally investigate or prosecute any alcohol or drug abuse patient.[facility] HospitalIn the event this information is protected by the Federal Confidentiality of Alcohol and Drug Abuse Patient Records regulations: The Federal rules restrict any use of the information to criminally investigate or prosecute any alcohol or drug abuse patient.[facility] HospitalIn the event this information is protected by the Federal Confidentiality of Alcohol and Drug Abuse Patient Records regulations: The Federal rules restrict any use of the information to criminally investigate or prosecute any alcohol or drug abuse patient.[facility] HospitalIn the event this information is protected by the Federal Confidentiality of Alcohol and Drug Abuse Patient Records regulations: The Federal rules restrict any use of the information to criminally investigate or prosecute any alcohol or drug abuse patient.[facility] HospitalIn the event this information is protected by the Federal Confidentiality of Alcohol and Drug Abuse Patient Records regulations: The Federal rules restrict any use of the information to criminally investigate or prosecute any alcohol or drug abuse patient.[facility] HospitalIn the event this information is protected by the Federal Confidentiality of Alcohol and Drug Abuse Patient Records regulations: The Federal rules restrict any use of the information to criminally investigate or prosecute any alcohol or drug abuse patient.[facility] HospitalIn the event this information is protected by the Federal Confidentiality of Alcohol and Drug Abuse Patient Records regulations: The Federal rules restrict any use of the information to criminally investigate or prosecute any alcohol or drug abuse patient.[facility] HospitalIn the event this information is protected by the Federal Confidentiality of Alcohol and Drug Abuse Patient Records regulations: The Federal rules restrict any use of the information to criminally investigate or prosecute any alcohol or drug abuse patient.[facility] HospitalIn the event this information is protected by the Federal Confidentiality of Alcohol and Drug Abuse Patient Records regulations: The Federal rules restrict any use of the information to criminally investigate or prosecute any alcohol or drug abuse patient.[facility] HospitalIn the event this information is protected by the Federal Confidentiality of Alcohol and Drug Abuse Patient Records regulations: The Federal rules restrict any use of the information to criminally investigate or prosecute any alcohol or drug abuse patient.[facility] HospitalIn the event this information is protected by the Federal Confidentiality of Alcohol and Drug Abuse Patient Records regulations: The Federal rules restrict any use of the information to criminally investigate or prosecute any alcohol or drug abuse patient.[facility] HospitalIn the event this information is protected by the Federal Confidentiality of Alcohol and Drug Abuse Patient Records regulations: The Federal rules restrict any use of the information to criminally investigate or prosecute any alcohol or drug abuse patient.[facility] HospitalIn the event this information is protected by the Federal Confidentiality of Alcohol and Drug Abuse Patient Records regulations: The Federal rules restrict any use of the information to criminally investigate or prosecute any alcohol or drug abuse patient.[facility] HospitalIn the event this information is protected by the Federal Confidentiality of Alcohol and Drug Abuse Patient Records regulations: The Federal rules restrict any use of the information to criminally investigate or prosecute any alcohol or drug abuse patient.[facility] HospitalIn the event this information is protected by the Federal Confidentiality of Alcohol and Drug Abuse Patient Records regulations: The Federal rules restrict any use of the information to criminally investigate or prosecute any alcohol or drug abuse patient.[facility] HospitalIn the event this information is protected by the Federal Confidentiality of Alcohol and Drug Abuse Patient Records regulations: The Federal rules restrict any use of the information to criminally investigate or prosecute any alcohol or drug abuse patient.[facility] HospitalIn the event this information is protected by the Federal Confidentiality of Alcohol and Drug Abuse Patient Records regulations: The Federal rules restrict any use of the information to criminally investigate or prosecute any alcohol or drug abuse patient.[facility] HospitalIn the event this information is protected by the Federal Confidentiality of Alcohol and Drug Abuse Patient Records regulations: The Federal rules restrict any use of the information to criminally investigate or prosecute any alcohol or drug abuse patient.[facility] HospitalIn the event this information is protected by the Federal Confidentiality of Alcohol and Drug Abuse Patient Records regulations: The Federal rules restrict any use of the information to criminally investigate or prosecute any alcohol or drug abuse patient.[facility] HospitalIn the event this information is protected by the Federal Confidentiality of Alcohol and Drug Abuse Patient Records regulations: The Federal rules restrict any use of the information to criminally investigate or prosecute any alcohol or drug abuse patient.[facility] HospitalIn the event this information is protected by the Federal Confidentiality of Alcohol and Drug Abuse Patient Records regulations: The Federal rules restrict any use of the information to criminally investigate or prosecute any alcohol or drug abuse patient.[facility] HospitalIn the event this information is protected by the Federal Confidentiality of Alcohol and Drug Abuse Patient Records regulations: The Federal rules restrict any use of the information to criminally investigate or prosecute any alcohol or drug abuse patient.[facility] HospitalIn the event this information is protected by the Federal Confidentiality of Alcohol and Drug Abuse Patient Records regulations: The Federal rules restrict any use of the information to criminally investigate or prosecute any alcohol or drug abuse patient.[facility] HospitalIn the event this information is protected by the Federal Confidentiality of Alcohol and Drug Abuse Patient Records regulations: The Federal rules restrict any use of the information to criminally investigate or prosecute any alcohol or drug abuse patient.[facility] HospitalIn the event this information is protected by the Federal Confidentiality of Alcohol and Drug Abuse Patient Records regulations: The Federal rules restrict any use of the information to criminally investigate or prosecute any alcohol or drug abuse patient.[facility] HospitalIn the event this information is protected by the Federal Confidentiality of Alcohol and Drug Abuse Patient Records regulations: The Federal rules restrict any use of the information to criminally investigate or prosecute any alcohol or drug abuse patient.[facility] HospitalIn the event this information is protected by the Federal Confidentiality of Alcohol and Drug Abuse Patient Records regulations: The Federal rules restrict any use of the information to criminally investigate or prosecute any alcohol or drug abuse patient.[facility] HospitalIn the event this information is protected by the Federal Confidentiality of Alcohol and Drug Abuse Patient Records regulations: The Federal rules restrict any use of the information to criminally investigate or prosecute any alcohol or drug abuse patient.[facility] HospitalIn the event this information is protected by the Federal Confidentiality of Alcohol and Drug Abuse Patient Records regulations: The Federal rules restrict any use of the information to criminally investigate or prosecute any alcohol or drug abuse patient.[facility] HospitalIn the event this information is protected by the Federal Confidentiality of Alcohol and Drug Abuse Patient Records regulations: The Federal rules restrict any use of the information to criminally investigate or prosecute any alcohol or drug abuse patient.[facility] HospitalIn the event this information is protected by the Federal Confidentiality of Alcohol and Drug Abuse Patient Records regulations: The Federal rules restrict any use of the information to criminally investigate or prosecute any alcohol or drug abuse patient.[facility] HospitalIn the event this information is protected by the Federal Confidentiality of Alcohol and Drug Abuse Patient Records regulations: The Federal rules restrict any use of the information to criminally investigate or prosecute any alcohol or drug abuse patient.[facility] HospitalIn the event this information is protected by the Federal Confidentiality of Alcohol and Drug Abuse Patient Records regulations: The Federal rules restrict any use of the information to criminally investigate or prosecute any alcohol or drug abuse patient.[facility] HospitalIn the event this information is protected by the Federal Confidentiality of Alcohol and Drug Abuse Patient Records regulations: The Federal rules restrict any use of the information to criminally investigate or prosecute any alcohol or drug abuse patient.[facility] HospitalIn the event this information is protected by the Federal Confidentiality of Alcohol and Drug Abuse Patient Records regulations: The Federal rules restrict any use of the information to criminally investigate or prosecute any alcohol or drug abuse patient.[facility] HospitalIn the event this information is protected by the Federal Confidentiality of Alcohol and Drug Abuse Patient Records regulations: The Federal rules restrict any use of the information to criminally investigate or prosecute any alcohol or drug abuse patient.[facility] HospitalIn the event this information is protected by the Federal Confidentiality of Alcohol and Drug Abuse Patient Records regulations: The Federal rules restrict any use of the information to criminally investigate or prosecute any alcohol or drug abuse patient.[facility] HospitalIn the event this information is protected by the Federal Confidentiality of Alcohol and Drug Abuse Patient Records regulations: The Federal rules restrict any use of the information to criminally investigate or prosecute any alcohol or drug abuse patient.[facility] HospitalIn the event this information is protected by the Federal Confidentiality of Alcohol and Drug Abuse Patient Records regulations: The Federal rules restrict any use of the information to criminally investigate or prosecute any alcohol or drug abuse patient.[facility] HospitalIn the event this information is protected by the Federal Confidentiality of Alcohol and Drug Abuse Patient Records regulations: The Federal rules restrict any use of the information to criminally investigate or prosecute any alcohol or drug abuse patient.[facility] HospitalIn the event this information is protected by the Federal Confidentiality of Alcohol and Drug Abuse Patient Records regulations: The Federal rules restrict any use of the information to criminally investigate or prosecute any alcohol or drug abuse patient.[facility] HospitalIn the event this information is protected by the Federal Confidentiality of Alcohol and Drug Abuse Patient Records regulations: The Federal rules restrict any use of the information to criminally investigate or prosecute any alcohol or drug abuse patient.[facility] HospitalIn the event this information is protected by the Federal Confidentiality of Alcohol and Drug Abuse Patient Records regulations: The Federal rules restrict any use of the information to criminally investigate or prosecute any alcohol or drug abuse patient.[facility] HospitalIn the event this information is protected by the Federal Confidentiality of Alcohol and Drug Abuse Patient Records regulations: The Federal rules restrict any use of the information to criminally investigate or prosecute any alcohol or drug abuse patient.[facility] HospitalIn the event this information is protected by the Federal Confidentiality of Alcohol and Drug Abuse Patient Records regulations: The Federal rules restrict any use of the information to criminally investigate or prosecute any alcohol or drug abuse patient.[facility] HospitalIn the event this information is protected by the Federal Confidentiality of Alcohol and Drug Abuse Patient Records regulations: The Federal rules restrict any use of the information to criminally investigate or prosecute any alcohol or drug abuse patient.[facility] HospitalIn the event this information is protected by the Federal Confidentiality of Alcohol and Drug Abuse Patient Records regulations: The Federal rules restrict any use of the information to criminally investigate or prosecute any alcohol or drug abuse patient.[facility]In the event this information is protected by the Federal Confidentiality of Alcohol and Drug Abuse Patient Records regulations: The Federal rules restrict any use of the information to criminally investigate or prosecute any alcohol or drug abuse patient.[facility] HospitalIn the event this information is protected by the Federal Confidentiality of Alcohol and Drug Abuse Patient Records regulations: The Federal rules restrict any use of the information to criminally investigate or prosecute any alcohol or drug abuse patient.[facility] HospitalIn the event this information is protected by the Federal Confidentiality of Alcohol and Drug Abuse Patient Records regulations: The Federal rules restrict any use of the information to criminally investigate or prosecute any alcohol or drug abuse patient.[facility]In the event this information is protected by the Federal Confidentiality of Alcohol and Drug Abuse Patient Records regulations: The Federal rules restrict any use of the information to criminally investigate or prosecute any alcohol or drug abuse patient.[facility] HospitalIn the event this information is protected by the Federal Confidentiality of Alcohol and Drug Abuse Patient Records regulations: The Federal rules restrict any use of the information to criminally investigate or prosecute any alcohol or drug abuse patient.[facility] HospitalIn the event this information is protected by the Federal Confidentiality of Alcohol and Drug Abuse Patient Records regulations: The Federal rules restrict any use of the information to criminally investigate or prosecute any alcohol or drug abuse patient.[facility] HospitalIn the event this information is protected by the Federal Confidentiality of Alcohol and Drug Abuse Patient Records regulations: The Federal rules restrict any use of the information to criminally investigate or prosecute any alcohol or drug abuse patient.[facility] HospitalIn the event this information is protected by the Federal Confidentiality of Alcohol and Drug Abuse Patient Records regulations: The Federal rules restrict any use of the information to criminally investigate or prosecute any alcohol or drug abuse patient.[facility] HospitalIn the event this information is protected by the Federal Confidentiality of Alcohol and Drug Abuse Patient Records regulations: The Federal rules restrict any use of the information to criminally investigate or prosecute any alcohol or drug abuse patient.[facility] HospitalIn the event this information is protected by the Federal Confidentiality of Alcohol and Drug Abuse Patient Records regulations: The Federal rules restrict any use of the information to criminally investigate or prosecute any alcohol or drug abuse patient.[facility] HospitalIn the event this information is protected by the Federal Confidentiality of Alcohol and Drug Abuse Patient Records regulations: The Federal rules restrict any use of the information to criminally investigate or prosecute any alcohol or drug abuse patient.[facility] HospitalIn the event this information is protected by the Federal Confidentiality of Alcohol and Drug Abuse Patient Records regulations: The Federal rules restrict any use of the information to criminally investigate or prosecute any alcohol or drug abuse patient.[facility] HospitalIn the event this information is protected by the Federal Confidentiality of Alcohol and Drug Abuse Patient Records regulations: The Federal rules restrict any use of the information to criminally investigate or prosecute any alcohol or drug abuse patient.[facility] HospitalIn the event this information is protected by the Federal Confidentiality of Alcohol and Drug Abuse Patient Records regulations: The Federal rules restrict any use of the information to criminally investigate or prosecute any alcohol or drug abuse patient.[facility] HospitalIn the event this information is protected by the Federal Confidentiality of Alcohol and Drug Abuse Patient Records regulations: The Federal rules restrict any use of the information to criminally investigate or prosecute any alcohol or drug abuse patient.[facility] Reason for Visit (unrecogniz ed section and content) Reason Comments Spirometry Specialty Diagnoses / Procedures Referred By Contac t Referred To Contact [facility] Diagnoses Cystic fibrosis with pulmonary manifestations (HCC) Procedures SPIROMETRY BASELINE ONLY SPMTRY W/VC EXPIRATORY CRISTINA W/WO MXML VOL VNTJ Alex Pinon MD [address] [place] [address] [address]piratory [address] [address] [place] [address] Referral ID Status Reason Start Date Expiration Date V isits Requested Visits Authorized [id number] Closed Auto-Generate d Referral 11/12/2023 12/11/2024 1 1 Reason Comments Recheck Specialty Diagnoses / Procedures Referred By Contac t Referred To Contact HOSP INPATIENT Diagnoses Cystic fibrosis exacerbation (HCC) Cystic fibrosis with pulmonary exacerbation (HCC) Procedures [facility] IP[facility]BS [facility] HIGH MDM 75 MINUTES Hosp Main [address] [place] [address] Referral ID Status Reason Start Date Expiration Date Visits Re quested Visits Authorized [id number] 1 1 Specialty Diagnoses / Procedures Referred By Contac t Referred To Contact Diagnoses Cystic fibrosis with pulmonary manifestations cf Procedures [facility]BS [facility] HIGH MDM 75 MINUTES IV Antibiotics Hosp Main [address] [place] [address] Referral ID Status Reason Start Date Expiration Date Visits Re quested Visits Authorized [id number] 1 1 Reason Comments New CF Referral Reason Comments Emesis Tachycardia Specialty Diagnoses / Procedures Referred By Contac t Referred To Contact General Care Diagnoses Cystic fibrosis Intractable nausea and vomiting Acute [place] [address] Referral ID Status Reason Start Date Expiration Date Visits Re quested Visits Authorized [id number] 1 1 Reason Comments Cystic Fibrosis Specialty Diagnoses / Procedures Referred By Contac t Referred To Contact [facility] Diagnoses Cystic Fibrosis Procedures REFERRAL TO [facility] FINANCIAL COUNSELOR MA NEW CYSTIC FIBROSIS She Pete DO [address] [place] [address] Respiratory [place] [address] [place] [address] Referral ID Status Reason Start Date Expiration Date Visits Requested Visits Authorized [id number] Pending Review Financial Clearance Required - OON Payor 2022 10/15/2022 1 1 Reason Comments Coughing Up Blood Reason Comments CoPat Start Reason Comments CoPat Agency Reason Comments Outside Lab Results copat Specialty Diagnoses / Procedures Referred By Contac t Referred To Contact [facility] Diagnoses Cystic fibrosis (HCC) Procedures SPIROMETRY BASELINE ONLY SPMTRY W/VC EXPIRATORY CRISTINA W/WO MXML VOL VNTSally [place], METALWORKING INSTRUCTOR.TUNNEL WORKER [id number] [place] [address] Referral ID Status Reason Start Date Expiration Date V isits Requested Visits Authorized [id number] Closed Auto-Generate d Referral 08/06/2022 09/05/2023 1 [...] CRISTINA W/WO MXML VOL VNTJ She Pete, [place] [address] [place] [address] Referral ID Status Reason Start Date Expiration Date V isits Requested Visits Authorized [id number] Closed Auto-Generate d Referral 07/21/2022 08/20/2023 1 1 Reason Comments Follow Up Patient requesting r efill on Celexa Specialty Diagnoses / Procedures Referred By Jennifer newman Referred To Contact Pulmonary Disease / PULMONARY MEDICINE Diagnoses ESTABLISHED - CF Procedures RI EST CYSTIC FIBROSIS She Pete, [address] [place] [address] She Pete, [place] [address] Referral ID Status Reason Start Date Expiration Date V isits Requested Visits Authorized [id number] Pending Review 09/11/2022 12/10/2022 1 1 Reason Onset Date Comments Refill Request 09/25/2022 Reason Comments Refill Request Reason Comments Appointment Referral ID Status Reason Start Date Expiration Date V isits Requested Visits Authorized [id number] Closed Auto-Generate d Referral 08/09/2022 09/08/2023 1 1 Reason Comments Outside Lab Results Referral ID Status Reason Start Date Expiration Date V isits Requested Visits Authorized [id number] Closed Auto-Generate d Referral 11/11/2022 12/11/2023 1 1 Reason Comments Extend CoPat 11/29 Reason Comments cystic fybrosis Specialty Diagnoses / Procedures Referred By Contac t Referred To Contact Pulmonary Disease / PULMONARY MEDICINE Diagnoses Cystic Fibrosis Procedures RI EST CYSTIC FIBROSIS- FOLLOW UP APPOINTMENT IN PERSON She Pete, DO [address] [place] [address] She Pete, [address] [place] [address] Referral ID Status Reason Start Date Expiration Date V isits Requested Visits Authorized [id number] Pending Review 11/20/2022 02/18/2023 1 1 Reason Onset Date Comments Refill Request 11/20/2022 Reason Onset Date Comments Refill Request 11/20/2022 Reason Comments Results Specialty Diagnoses / Procedures Referred By Contac t Referred To Contact [facility] Diagnoses CF (cystic fibrosis) ([facility]) Procedures SPIROMETRY BASELINE ONLY SPMTRY W/VC EXPIRATORY CRISTINA W/WO MXML VOL VNTJ She Pete, [address] [place] [address] Respiratory [place] [address] [place] [address] Referral ID Status Reason Start Date Expiration Date V isits Requested Visits Authorized [id number] Closed Auto-Generate d Referral 08/28/2022 09/27/2023 1 1 Reason Comments Follow Up CF, chest is still t ight Specialty Diagnoses / Procedures Referred By Contac t Referred To Contact Internal Medicine / PULMONARY MEDICINE Diagnoses Cystic Fibrosis Procedures RI EST CYSTIC FIBROSIS Jean Pierre Kilgore MD [address] [place] [address] Jean Pierre Kilgore MD [address] [place] [address] Referral ID Status Reason Start Date Expiration Date V isits Requested Visits Authorized [id number] Pending Review 12/04/2022 03/04/2023 1 1 Reason Comments Benefits Authorization Reason Comments Diabetes Reason Comments Insurance Authorization for 0.9% Sodium Chloride 1000 mlInfuse 1000 ml daily for 4 days Reason Comments Insurance Authorization for Vancomycin 7 50mg IV every 12 hours ,Meropenem 1.5gm IV every 8 hours ,Benadryl 50mg [id number] Reason Comments Insurance Authorization Copat extensions from 11/23/22-12/05/22 for Meropenem 1.5g q8h and vancomycin 0.75g q12h Reason Comments Follow Up Coughing up blood a week ago Specialty Diagnoses / Procedures Referred By Contac t Referred To Contact [facility] Diagnoses Cystic fibrosis with pulmonary manifestations (HCC) Procedures SPIROMETRY BASELINE ONLY SPMTRY W/VC EXPIRATORY CRISTINA W/WO MXML VOL VNTJ She Pete, [address] [place] [address] Respiratory [place] [address] [place] [address] Referral ID Status Reason Start Date Expiration Date V isits Requested Visits Authorized [id number] Closed Auto-Generate d Referral 03/03/2023 04/01/2024 1 [...] FIBROSIS She Pete DO [address] [place] [address] She Pete DO [address] [place] [address] Referral ID Status Reason Start Date Expiration Date V isits Requested Visits Authorized [id number] Pending Review 03/19/2023 06/17/2023 1 1 Reason Comments PICC Line Reason Comments Returning Patient's Call Specialty Diagnoses / Procedures Referred By Contac t Referred [facility] Contact [facility] Diagnoses Cystic fibrosis (HCC) Procedures SPIROMETRY BASELINE ONLY SPMTRY W/VC EXPIRATORY CRISTINA W/WO MXML VOL She Granado, DO [address] [place] [address] [address] Referral ID Status Reason Start Date Expiration Date V isits Requested Visits Authorized [id number] Closed Auto-Generate d Referral 03/19/2023 04/17/2024 1 1 Reason Comments Recheck No concerns Specialty Diagnoses / Procedures Referred By Contac t Referred To Contact Internal Medicine / PULMONARY MEDICINE Diagnoses F/U Procedures RI EST CYSTIC FIBROSIS Jean Pierre Kilgore MD [address] [place] [address] Jean Pierre Kilgore MD [address] [facility] [address] [place] [address] Referral ID Status Reason Start Date Expiration Date V isits Requested Visits Authorized [id number] Pending Review 06/04/2023 09/02/2023 1 1 Specialty Diagnoses / Procedures Referred By Contac t Referred To Contact [facility] Diagnoses Cystic fibrosis with pulmonary manifestations (HCC) Cystic fibrosis with pulmonary exacerbation (HCC) Procedures SPIROMETRY BASELINE ONLY SPMTRY W/VC EXPIRATORY CRISTINA W/WO MXML VOL She Granado, DO [address] [place] [address] [address] Referral ID Status Reason Start Date Expiration Date V isits Requested Visits Authorized [id number] Closed Auto-Generate d Referral 11/20/2022 12/20/2023 1 1 Reason Comments Recheck Reason Comments Underwriting Manager - Other Medical records and DAVID. Reason [...] W/O & W/CONTRAST MATERIAL Mono Lan MD [address] [place] [address] Mr Imaging [facility] Referral ID Status Reason Start Date Expiration Date V isits Requested Visits Authorized [id number] Closed Auto-Generate d Referral 04/23/2024 06/22/2024 1 1 Reason Comments Recheck Reason Comments Liver Disease Reason Comments Refill Request Patient Update Specialty Diagnoses / Procedures Referred By Contac t Referred To Contact [facility] Diagnoses Cystic fibrosis with pulmonary manifestations (HCC) Procedures SPIROMETRY BASELINE ONLY SPMTRY W/VC EXPIRATORY CRISTINA W/WO MXML VOL Jean Pierre Chase MD [address] [facility] [address] [place] [address] Res[address] [place] [address] [place] [address] Referral ID Status Reason Start Date Expiration Date V isits Requested Visits Authorized [id number] Closed Auto-Generate d Referral 05/05/2024 06/04/2025 1 1 Reason Comments Follow Up Phone Call Underwriting Manager - Other Reason Comments CF Routine follow up vi sit. Reason Comments Medication Problem Vanco timing Reason Comments Underwriting Manager - Other Reason Comments Critical Results Reason Comments Received Outside Medical Records Referral ID Status Reason Start Date Expiration Date V isits Requested Visits Authorized [id number] Closed Auto-Generate d Referral 09/02/2024 10/02/2025 1 1 Reason Onset Date Comments Refill Request 09/15/2024 Reason Comments Patient Update PICC Line Pulled at [facility] Referral ID Status Reason Start Date Expiration Date V isits Requested Visits Authorized [id number] Closed Auto-Generate d Referral 09/09/2024 10/09/2025 1 1 Reason Comments Abstract Referral ID Status Reason Start Date Expiration Date V isits Requested Visits Authorized [id number] Closed Auto-Generate d Referral 05/05/2024 06/04/2025 1 1 Reason Comments Sore Throat ST and fever x 1.5 w eeks Specialty Diagnoses / Procedures Referred By Contac t Referred To Contact [facility] Diagnoses Cystic fibrosis (HCC) Procedures SPIROMETRY BASELINE ONLY SPMTRY W/VC EXPIRATORY CRISTINA W/WO MXML VOL VNTJ Sally Schneider, METALWORKING INSTRUCTOR.TUNNEL WORKER [address] [place] [address] Phone: tel: fax: Res[facility] [place] [address] [place] [address] Referral ID Status Reason Start Date Expiration Date V isits Requested Visits Authorized [id number] Closed Auto-Generate d Referral 10/06/2024 11/05/2025 1 1 Reason Comments Follow Up Reason Comments Prior Authorization Reason Comments Underwriting Manager - Other [facility] Reason Onset Date Comments Refill Request 04/07/2025 Care Teams (unrecognized sec tion and content) Granite Worker Relationship Specialty Start Date End Date Stephie Ramirez, METALWORKING INSTRUCTOR.TUNNEL WORKER [address] [place], [place] [id number] Referring Endocrinology 09/19/21 Granite Worker Relationship Specialty Start Date End Date Stephie Ramirez, METALWORKING INSTRUCTOR.TUNNEL WORKER [address] [place], [place] [id number] Referring Endocrinology 09/19/21 Granite Worker Relationship Specialty Start Date End Date No Primary Care[place] [address] PCP - General Pediatrics 12/09/16 Jean Pierre Kilgore MD Attending Physician Internal Medicine 12/09/16 Orquidea [place] [address] Food Science Professor Social work 12/04/20 Orquidea Mckeon, [place] [address] Application Counselor Nutrition 08/01/21 Jasmyn Castañeda APRN-[place] [address] Nurse Practitioner Nurse Practitioner 02/08/22 Maryam Boyer, [place] [address] Registered Nurse 02/08/22 Whitley Hoff RN [facility] [place] [address] Registered Nurse 02/08/22 Granite Worker Relationship Specialty Start Date End Date Stephie Ramirez, METALWORKING INSTRUCTOR.TUNNEL WORKER [address] [place] [address] Referring Endocrinology 09/19/21 Granite Worker Relationship Specialty Start Date End Date Stephie Ramirez, METALWORKING INSTRUCTOR.TUNNEL WORKER [address] [place] [address] Referring Endocrinology 09/19/21 Granite Worker Relationship Specialty Start Date End Date Stephie Ramirez, METALWORKING INSTRUCTOR.TUNNEL WORKER [address] [place] [address] Referring Endocrinology 09/19/21 Granite Worker Relationship Specialty Start Date End Date Stephie Ramirez, METALWORKING INSTRUCTOR.TUNNEL WORKER [address] [place] [address] Referring Endocrinology 09/19/21 Granite Worker Relationship Specialty Start Date End Date Stephie Ramirez, METALWORKING INSTRUCTOR.TUNNEL WORKER [address] [place] [address] Referring Endocrinology 09/19/21 Granite Worker Relationship Specialty Start Date End Date Stephie Ramirez, METALWORKING INSTRUCTOR.TUNNEL WORKER [address] [place] [address] Referring Endocrinology 09/19/21 Granite Worker Relationship Specialty Start Date End Date Stephie Ramirez, METALWORKING INSTRUCTOR.TUNNEL WORKER [address] [place] [address] Referring Endocrinology 09/19/21 Granite Worker Relationship Specialty Start Date End Date Stephie Ramirez, METALWORKING INSTRUCTOR.TUNNEL WORKER [address] [place] [address] Referring Endocrinology 09/19/21 Granite Worker Relationship Specialty Start Date End Date Stephie Ramirez, METALWORKING INSTRUCTOR.TUNNEL WORKER [address] [place] [address] Referring Endocrinology 09/19/21 Granite Worker Relationship Specialty Start Date End Date Stephie Ramirez, METALWORKING INSTRUCTOR.TUNNEL WORKER [address] [place] [address] Referring Endocrinology 09/19/21 Granite Worker Relationship Specialty Start Date End Date Stephie Ramirez, METALWORKING INSTRUCTOR.TUNNEL WORKER [address] [place] [address] Referring Endocrinology 09/19/21 Granite Worker Relationship Specialty Start Date End Date Stephie Ramirez, METALWORKING INSTRUCTOR.TUNNEL WORKER [address] [place] [address] Referring Endocrinology 09/19/21 Granite Worker Relationship Specialty Start Date End Date Stephie Ramirez, METALWORKING INSTRUCTOR.TUNNEL WORKER [address] [place] [address] Referring Endocrinology 09/19/21 Granite Worker Relationship Specialty Start Date End Date Stephie Ramirez, METALWORKING INSTRUCTOR.TUNNEL WORKER [address] [place] [address] Referring Endocrinology 09/19/21 Granite Worker Relationship Specialty Start Date End Date Stephie Ramirez, METALWORKING INSTRUCTOR.TUNNEL WORKER [address] [place] [address] Referring Endocrinology 09/19/21 Granite Worker Relationship Specialty Start Date End Date Stephie Ramirez, METALWORKING INSTRUCTOR.TUNNEL WORKER [address] [place] [address] Referring Endocrinology 09/19/21 Granite Worker Relationship Specialty Start Date End Date Stephie Ramirez, METALWORKING INSTRUCTOR.TUNNEL WORKER [address] [facility] [place] [address] Referring Endocrinology 09/19/21 Granite Worker Relationship Specialty Start Date End Date Stephie Ramirez, METALWORKING INSTRUCTOR.TUNNEL WORKER [address] [facility] [place] [address] Referring Endocrinology 09/19/21 Granite Worker Relationship Specialty Start Date End Date Stephie Ramirez, METALWORKING INSTRUCTOR.TUNNEL WORKER [address] [facility] [place] [address] Referring Endocrinology 09/19/21 Granite Worker Relationship Specialty Start Date End Date Stephie Ramirez, METALWORKING INSTRUCTOR.TUNNEL WORKER [address] [facility] [place] [address] Referring Endocrinology 09/19/21 Granite Worker Relationship Specialty Start Date End Date Stephie Ramirez, METALWORKING INSTRUCTOR.TUNNEL WORKER [address] [place] [address] Referring Endocrinology 09/19/21 Granite Worker Relationship Specialty Start Date End Date Stephie Ramirez, METALWORKING INSTRUCTOR.TUNNEL WORKER [address] [facility] [place] [address] Referring Endocrinology 09/19/21 Granite Worker Relationship Specialty Start Date End Date Stephie Ramirez, METALWORKING INSTRUCTOR.TUNNEL WORKER [address] [place] [address] Referring Endocrinology 09/19/21 Granite Worker Relationship Specialty Start Date End Date Stephie Ramirez, METALWORKING INSTRUCTOR.TUNNEL WORKER [address] [place] [address] Referring Endocrinology 09/19/21 Granite Worker Relationship Specialty Start Date End Date Stephie Ramirez, METALWORKING INSTRUCTOR.TUNNEL WORKER [address] [facility] [place] [address] Referring Endocrinology 09/19/21 Granite Worker Relationship Specialty Start Date End Date Stephie Ramirez, METALWORKING INSTRUCTOR.TUNNEL WORKER [address] [place] [address] Referring Endocrinology 09/19/21 Granite Worker Relationship Specialty Start Date End Date Stephie Ramirez, METALWORKING INSTRUCTOR.TUNNEL WORKER [address] [place] [address] Referring Endocrinology 09/19/21 Granite Worker Relationship Specialty Start Date End Date Stephie Ramirez, METALWORKING INSTRUCTOR.TUNNEL WORKER [address] [place] [address] Referring Endocrinology 09/19/21 Granite Worker Relationship Specialty Start Date End Date Stephie Ramirez, METALWORKING INSTRUCTOR.TUNNEL WORKER [address] [place] [address] Referring Endocrinology 09/19/21 Granite Worker Relationship Specialty Start Date End Date Stephie Ramirez, METALWORKING INSTRUCTOR.TUNNEL WORKER [address] [place] [address] Referring Endocrinology 09/19/21 Granite Worker Relationship Specialty Start Date End Date Stephie Ramirez, METALWORKING INSTRUCTOR.TUNNEL WORKER [address] [place] [address] Referring Endocrinology 09/19/21 Granite Worker Relationship Specialty Start Date End Date Stephie Ramirez, METALWORKING INSTRUCTOR.TUNNEL WORKER [address] [place] [address] Referring Endocrinology 09/19/21 Granite Worker Relationship Specialty Start Date End Date Stephie Ramirez, METALWORKING INSTRUCTOR.TUNNEL WORKER [address] [place] [address] Referring Endocrinology 09/19/21 Granite Worker Relationship Specialty Start Date End Date Stephie Ramirez, METALWORKING INSTRUCTOR.TUNNEL WORKER [address] [place] [address] Referring Endocrinology 09/19/21 Granite Worker Relationship Specialty Start Date End Date Stephie Ramirez, METALWORKING INSTRUCTOR.TUNNEL WORKER [address] [place] [address] Referring Endocrinology 09/19/21 Granite Worker Relationship Specialty Start Date End Date Stephie Ramirez, METALWORKING INSTRUCTOR.TUNNEL WORKER [address] [place] [address] Referring Endocrinology 09/19/21 Granite Worker Relationship Specialty Start Date End Date Stephie Ramirez, METALWORKING INSTRUCTOR.TUNNEL WORKER [address] [place] [address] Referring Endocrinology 09/19/21 Granite Worker Relationship Specialty Start Date End Date Stephie Ramirez, METALWORKING INSTRUCTOR.TUNNEL WORKER [address] [facility] [place] [address] Referring Endocrinology 09/19/21 Granite Worker Relationship Specialty Start Date End Date Stephie Ramirez, METALWORKING INSTRUCTOR.TUNNEL WORKER [address] [place] [address] Referring Endocrinology 09/19/21 Granite Worker Relationship Specialty Start Date End Date Stephie Ramirez, METALWORKING INSTRUCTOR.TUNNEL WORKER [address] [place] [address] Referring Endocrinology 09/19/21 Granite Worker Relationship Specialty Start Date End Date Stephie Ramirez, METALWORKING INSTRUCTOR.TUNNEL WORKER [address] [place] [address] Referring Endocrinology 09/19/21 Granite Worker Relationship Specialty Start Date End Date Stephie Ramirez, METALWORKING INSTRUCTOR.TUNNEL WORKER [address] [place] [address] Referring Endocrinology 09/19/21 Granite Worker Relationship Specialty Start Date End Date Stephie Ramirez, METALWORKING INSTRUCTOR.TUNNEL WORKER [address] [place] [address] Referring Endocrinology 09/19/21 Granite Worker Relationship Specialty Start Date End Date Stephie Ramirez, METALWORKING INSTRUCTOR.TUNNEL WORKER [address] [place] [address] Referring Endocrinology 09/19/21 Granite Worker Relationship Specialty Start Date End Date Stephie Ramirez, METALWORKING INSTRUCTOR.TUNNEL WORKER [address] [place] [address] Referring Endocrinology 09/19/21 Granite Worker Relationship Specialty Start Date End Date Stephie Ramirez, METALWORKING INSTRUCTOR.TUNNEL WORKER [address] [place] [address] Referring Endocrinology 09/19/21 Granite Worker Relationship Specialty Start Date End Date Stephie Ramirez, METALWORKING INSTRUCTOR.TUNNEL WORKER [address] [place] [address] Referring Endocrinology 09/19/21 Granite Worker Relationship Specialty Start Date End Date Stephie Ramirez, METALWORKING INSTRUCTOR.TUNNEL WORKER [address] [place] [address] Referring Endocrinology 09/19/21 Granite Worker Relationship Specialty Start Date End Date Stephie Ramirez, METALWORKING INSTRUCTOR.TUNNEL WORKER [address] [place] [address] Referring Endocrinology 09/19/21 Granite Worker Relationship Specialty Start Date End Date Stephie Ramirez, METALWORKING INSTRUCTOR.TUNNEL WORKER [address] [place] [address] Referring Endocrinology 09/19/21 Granite Worker Relationship Specialty Start Date End Date Stephie Ramirez, METALWORKING INSTRUCTOR.TUNNEL WORKER [address] [place] [address] Referring Endocrinology 09/19/21 Granite Worker Relationship Specialty Start Date End Date Stephie Ramirez, METALWORKING INSTRUCTOR.TUNNEL WORKER [address] [place] [address] Referring Endocrinology 09/19/21 Granite Worker Relationship Specialty Start Date End Date Stephie Ramirez, METALWORKING INSTRUCTOR.TUNNEL WORKER [address] [place] [address] Referring Endocrinology 09/19/21 Granite Worker Relationship Specialty Start Date End Date Stephie Ramirez, METALWORKING INSTRUCTOR.TUNNEL WORKER [address] [place] [address] Referring Endocrinology 09/19/21 Granite Worker Relationship Specialty Start Date End Date Stephie Ramirez, METALWORKING INSTRUCTOR.TUNNEL WORKER [address] [place] [address] Referring Endocrinology 09/19/21 Granite Worker Relationship Specialty Start Date End Date Stephie Ramirez, METALWORKING INSTRUCTOR.TUNNEL WORKER [address] [place] [address] Referring Endocrinology 09/19/21 Granite Worker Relationship Specialty Start Date End Date Stephie Ramirez, METALWORKING INSTRUCTOR.TUNNEL WORKER [address] [place] [address] Referring Endocrinology 09/19/21 Granite Worker Relationship Specialty Start Date End Date Stephie Ramirez, METALWORKING INSTRUCTOR.TUNNEL WORKER [address] [place] [address] Referring Endocrinology 09/19/21 Granite Worker Relationship Specialty Start Date End Date Stephie Ramirez, METALWORKING INSTRUCTOR.TUNNEL WORKER [address] [place] [address] Referring Endocrinology 09/19/21 Granite Worker Relationship Specialty Start Date End Date Stephie Ramirez, METALWORKING INSTRUCTOR.TUNNEL WORKER [address] [place] [address] Referring Endocrinology 09/19/21 Granite Worker Relationship Specialty Start Date End Date Stephie Ramirez, METALWORKING INSTRUCTOR.TUNNEL WORKER [address] [place] [address] Referring Endocrinology 09/19/21 Granite Worker Relationship Specialty Start Date End Date Stephie Ramirez, METALWORKING INSTRUCTOR.TUNNEL WORKER [address] [place] [address] Referring Endocrinology 09/19/21 Granite Worker Relationship Specialty Start Date End Date Stephie Ramirez, METALWORKING INSTRUCTOR.TUNNEL WORKER [address] [place] [address] Referring Endocrinology 09/19/21 Granite Worker Relationship Specialty Start Date End Date Stephie Ramirez, METALWORKING INSTRUCTOR.TUNNEL WORKER [address] [place] [address] Referring Endocrinology 09/19/21 Granite Worker Relationship Specialty Start Date End Date Stephie Ramirez, METALWORKING INSTRUCTOR.TUNNEL WORKER [address] [place] [address] Referring Endocrinology 09/19/21 Granite Worker Relationship Specialty Start Date End Date Stephie Ramirez, METALWORKING INSTRUCTOR.TUNNEL WORKER [address] [place], [place] [id number] Referring Endocrinology 09/19/21 Granite Worker Relationship Specialty Start Date End Date Stephie Ramirez, METALWORKING INSTRUCTOR.TUNNEL WORKER [address] [place], [place] [id number] Referring Endocrinology 09/19/21 Granite Worker Relationship Specialty Start Date End Date Stephie Ramirez, METALWORKING INSTRUCTOR.TUNNEL WORKER [address] [place], [place] [id number] Referring Endocrinology 09/19/21 Jean Pierre Kilgore MD [address] [place] [address] [place], [place] [id number] Internal Medicine 08/18/23 Granite Worker Relationship Specialty Start Date End Date Stephie Ramirez, METALWORKING INSTRUCTOR.TUNNEL WORKER [address] [place], [place] [id number] Referring Endocrinology 09/19/21 Jean Pierre Kilgore MD [address] [place] [address] [place], [place] [id number] Internal Medicine 08/18/23 Granite Worker Relationship Specialty Start Date End Date Stephie Ramirez, METALWORKING INSTRUCTOR.TUNNEL WORKER [address] [place], [place] [id number] Referring Endocrinology 09/19/21 Jean Pierre Kilgore MD [address] [place] [address] [place] [address] Internal Medicine 08/18/[address] [address] Registered Dietitian Nutrition 08/26/23 Granite Worker Relationship Specialty Start Date End Date Stephie Ramirez, METALWORKING INSTRUCTOR.TUNNEL WORKER [address] [place], [place] [id number] Referring Endocrinology 09/19/21 Jean Pierre Kilgore MD [address] [place] [address] [place] [address] Internal Medicine 08/18/[address] [address] Registered Dietitian Nutrition 08/26/23 Granite Worker Relationship Specialty Start Date End Date Stephie Ramirez, METALWORKING INSTRUCTOR.TUNNEL WORKER [address] [place] [place], [place] [id number] Referring Endocrinology 09/19/21 Jean Pierre Kilgore MD [address] [place] [address] [place] [address] Internal Medicine 08/18/[address] [facility] [place] [address] Registered Dietitian Nutrition 08/26/23 Granite Worker Relationship Specialty Start Date End Date Stephie Ramirez, METALWORKING INSTRUCTOR.TUNNEL WORKER [address] [place] [address] Referring Endocrinology 09/19/21 Jean Pierre Kilgore MD [address] [place] [address] [place] [address] Internal Medicine 08/18/[address] [place] 283051 Registered Dietitian Nutrition 08/26/23 Granite Worker Relationship Specialty Start Date End Date Stephie Ramirez, METALWORKING INSTRUCTOR.TUNNEL WORKER [address] [place] [address] Referring Endocrinology 09/19/21 Jean Pierre Kilgore MD [address] [place] [address] [place] [address] Internal Medicine 08/18/[address] [place] [address]881 Registered Dietitian Nutrition 08/26/23 Granite Worker Relationship Specialty Start Date End Date Stephie Ramirez, METALWORKING INSTRUCTOR.TUNNEL WORKER [address] [place] [address] Referring Endocrinology 09/19/21 Granite Worker Relationship Specialty Start Date End Date Stephie Ramirez, METALWORKING INSTRUCTOR.TUNNEL WORKER [address] [place] [address] Referring Endocrinology 09/19/21 Jean Pierre Kilgore MD [address] [place] [address] [place] [address] Internal Medicine 08/18/[address] [place] [address] Registered Dietitian Nutrition 08/26/23 Granite Worker Relationship Specialty Start Date End Date Stephie Ramirez, METALWORKING INSTRUCTOR.TUNNEL WORKER [address] [place], [place] [id number] Referring Endocrinology 09/19/21 Jean Pierre Kilgore MD [address] [place] [address] [place] [address] Internal Medicine 08/18/[address] [place] [address] Registered Dietitian Nutrition 08/26/23 Granite Worker Relationship Specialty Start Date End Date Stephie Ramirez, METALWORKING INSTRUCTOR.TUNNEL WORKER [address] [place] [address] Referring Endocrinology 09/19/21 Granite Worker Relationship Specialty Start Date End Date Stephie Ramirez, METALWORKING INSTRUCTOR.TUNNEL WORKER [address] [place] [address] Referring Endocrinology 09/19/21 Jean Pierre Kilgore MD [address] [place] [address] [place] [address] Internal Medicine 08/18/[address] [place] [address] Registered Dietitian Nutrition 08/26/23 Granite Worker Relationship Specialty Start Date End Date Stephie Ramirez, METALWORKING INSTRUCTOR.TUNNEL WORKER [address] [place] [address] Referring Endocrinology 09/19/21 Jean Pierre Kilgore MD [address] [place] [address] [place], [place] [id number] Internal Medicine 08/18/[address] [place] [place] 859411 Registered Dietitian Nutrition 08/26/23 Granite Worker Relationship Specialty Start Date End Date Stephie Ramirez, METALWORKING INSTRUCTOR.TUNNEL WORKER [facility] [place], [place] [id number] Referring Endocrinology 09/19/21 Jean Pierre Kilgore MD [address] [place] [address] [place], [place] [id number] Internal Medicine 08/18/[address] [place] 995751 Registered Dietitian Nutrition 08/26/23 Granite Worker Relationship Specialty Start Date End Date Stephie Ramirez, METALWORKING INSTRUCTOR.TUNNEL WORKER [facility] [address] [place] [address] Referring Endocrinology 09/19/21 Jean Pierre Kilgore MD [address] [place] [address] [place], [place] [id number] Internal Medicine 08/18/[address] [place] [address] Registered Dietitian Nutrition 08/26/23 Granite Worker Relationship Specialty Start Date End Date Stephie Ramirez, METALWORKING INSTRUCTOR.TUNNEL WORKER [address] [place], [place] [id number] Referring Endocrinology 09/19/21 Jean Pierre Kilgore MD [address] [place] [address] [place], [place] [id number] Internal Medicine 08/18/[address] E [facility] [place] 044451 Registered Dietitian Nutrition 08/26/23 Granite Worker Relationship Specialty Start Date End Date Stephie Ramirez, METALWORKING INSTRUCTOR.TUNNEL WORKER [address] [place] [address] Referring Endocrinology 09/19/21 Jean Pierre Kilgore MD [address] [place] [address] [place], [place] [id number] Internal Medicine 08/18/[address] E [facility] [place], [place] [address]321 Registered Dietitian Nutrition 08/26/23 Granite Worker Relationship Specialty Start Date End Date Stephie Ramirez, METALWORKING INSTRUCTOR.TUNNEL WORKER [address] [facility] [place] [id number] Referring Endocrinology 09/19/21 Jean Pierre Kligore MD [address] [place] [address] [place], [place] [id number] Internal Medicine 08/18/[address] [place] [address] Registered Dietitian Nutrition 08/26/23 Granite Worker Relationship Specialty Start Date End Date Stephie Ramirez, ADALI.TUNNEL WORKER [address] [place] [place], [place] [id number] Referring Endocrinology 09/19/21 Jean Pierre Kilgore MD [address] [place] [address] [place] [address] Internal Medicine 08/18/[address] [place] [address] Registered Dietitian Nutrition 08/26/23 Granite Worker Relationship Specialty Start Date End Date Stephie Ramirez, METALWORKING INSTRUCTOR.TUNNEL WORKER [address] [place], [place] [id number] Referring Endocrinology 09/19/21 Jean Pierre Kilgoer MD [address] [place] [address] [place] [address] Internal Medicine 08/18/[address] [place] [address] Registered Dietitian Nutrition 08/26/23 Granite Worker Relationship Specialty Start Date End Date Stephie Ramirez, METALWORKING INSTRUCTOR.TUNNEL WORKER [address] [place] [address] Referring Endocrinology 09/19/21 Jean Pierre Kilgore MD [address] [place] [address] [place], [place] [id number] Internal Medicine 08/18/[address] RENES[address]en [facility] [place] 907041 Registered Dietitian Nutrition 08/26/23 Granite Worker Relationship Specialty Start Date End Date Stephie Ramirez, METALWORKING INSTRUCTOR.TUNNEL WORKER [address] [place], [place] [id number] Referring Endocrinology 09/19/21 Jean Pierre Kilgore MD [address] [place] [address] [place] [address] Internal Medicine 08/18/[address] CAMERONS[place], [place] 989711 Registered Dietitian Nutrition 08/26/23 Granite Worker Relationship Specialty Start Date End Date Stephie Ramirez, METALWORKING INSTRUCTOR.TUNNEL WORKER [address] [facility] 300 [place], [place] [address] Referring Endocrinology 09/19/21 Jean Pierre Kilgore MD [address] [place] [address] [place] [address] Internal Medicine 08/18/[address] [place] [address] Registered Dietitian Nutrition 08/26/23 Team Status: Active Member Role Status Dates Dr. Lenora [place] , DO Family Provider Active Dr. Lenora [place] , DO Primary Care Provider Activ e Team Status: Inactive Member Role Status Dates Dr. Lenora [place] , DO Primary Care Provider Activ e SOM SANTIAGO Attending Provider, Referring Provid er Active MARY JO TOBAR Other Provider Active Granite Worker Relationship Specialty Start Date End Date Stephie Ramirez, METALWORKING INSTRUCTOR.TUNNEL WORKER [address] [place], [place] [phone] Referring Endocrinology 09/19/21 Jean Pierre Kilgore MD [address] [place] [address] [place] [address] Internal Medicine 08/18/[address] E [facility] [place] 337741 Registered Dietitian Nutrition 08/26/23 Granite Worker Relationship Specialty Start Date End Date Stephie Ramirez, METALWORKING INSTRUCTOR.TUNNEL WORKER [address] [place], [place] [id number] Referring Endocrinology 09/19/21 Jean Pierre Kilgore MD [address] [place] [address] [place] [address] Internal Medicine 08/18/[address] E [facility] [place] [address] Registered Dietitian Nutrition 08/26/23 Granite Worker Relationship Specialty Start Date End Date Stephie Ramirez, METALWORKING INSTRUCTOR.TUNNEL WORKER [address] [place], [place] [id number] Referring Endocrinology 09/19/21 Jean Pierre Kilgore MD [address] [place] [address] [place], [place] [id number] Internal Medicine 08/18/[address] [place] 356571 Registered Dietitian Nutrition 08/26/23 Granite Worker Relationship Specialty Start Date End Date Stephie Ramirez, METALWORKING INSTRUCTOR.TUNNEL WORKER [address] [place], [place] [id number] Referring Endocrinology 09/19/21 Jean Pierre Kilgore MD [address] [place] [address] [place], [place] [id number] Internal Medicine 08/18/[address] [place] [place] [id number] Registered Dietitian Nutrition 08/26/23 Team Status: Inactive Member Role Status Dates Dr. Lenora [place] , Primary Care Provider MARY JO Bauer Other Provider Active SOM SANTIAGO Attending Provider, Referring Provid er Active Granite Worker Relationship Specialty Start Date End Date Stephie Ramirez, METALWORKING INSTRUCTOR.TUNNEL WORKER [address] [place], [place] [id number] Referring Endocrinology 09/19/21 Jean Pierre Kilgore MD [address] [place] [address] [place], [place] [id number] Internal Medicine 08/18/[address] [place] [id number] Registered Dietitian Nutrition 08/26/23 Granite Worker Relationship Specialty Start Date End Date Stephie Ramirez, METALWORKING INSTRUCTOR.TUNNEL WORKER [address] [place], [place] [id number] Referring Endocrinology 09/19/21 Jean Pierre Kilgore MD [address] [place] [address] [place], [place] [id number] Internal Medicine 08/18/[address] [place], [place] 240[address]691 Registered Dietitian Nutrition 08/26/23 Granite Worker Relationship Specialty Start Date End Date Stephie Ramirez, METALWORKING INSTRUCTOR.TUNNEL WORKER [address] [place], [place] [id number] Referring Endocrinology 09/19/21 Jean Pierre Kilgore MD [address] [place] [address] [place], [place] [id number] Internal Medicine 08/18/[address] [place] [address] Registered Dietitian Nutrition 08/26/23 Granite Worker Relationship Specialty Start Date End Date Stephie Ramirez, METALWORKING INSTRUCTOR.TUNNEL WORKER [address] [place], [place] [id number] Referring Endocrinology 09/19/21 Jean Pierre Kilgore MD [address] [place] [address] [place], [place] [id number] Internal Medicine 08/18/[address] [place] [address] Registered Dietitian Nutrition 08/26/23 Granite Worker Relationship Specialty Start Date End Date Stephie Ramirez, METALWORKING INSTRUCTOR.TUNNEL WORKER [address] [place], [place] [phone] Referring Endocrinology 09/19/21 Jean Pierre Kilgore MD [address] [place] [address] [place], [place] [id number] Internal Medicine 08/18/[address] [place], [place] 353581 Registered Dietitian Nutrition 08/26/23 Granite Worker Relationship Specialty Start Date End Date Stephie Ramirez, METALWORKING INSTRUCTOR.TUNNEL WORKER [address] [facility], [place] [address] Referring Endocrinology 09/19/21 Jean Pierre Kilgore MD [address] [place] [address] [place] [address] Internal Medicine 08/18/[address] [place] [address] Registered Dietitian Nutrition 08/26/23 Granite Worker Relationship Specialty Start Date End Date Stephie Ramirez, METALWORKING INSTRUCTOR.TUNNEL WORKER [address] [place] [address] Referring Endocrinology 09/19/21 Jean Pierre Kilgore MD [address] [place] [address] [place] [address] Internal Medicine 08/18/[address] [place] [address] Registered Dietitian Nutrition 08/26/23 Granite Worker Relationship Specialty Start Date End Date Stephie Ramirez, METALWORKING INSTRUCTOR.TUNNEL WORKER [address] [place], [place] [id number] Referring Endocrinology 09/19/21 Jean Pierre Kilgore MD [address] [place] [address] [place] [address] Internal Medicine 08/18/[address] [place] [address] Registered Dietitian Nutrition 08/26/23 Granite Worker Relationship Specialty Start Date End Date Stephie Ramirez, METALWORKING INSTRUCTOR.TUNNEL WORKER [address] [place] [address] Referring Endocrinology 09/19/21 Jean Pierre Kilgore MD [address] [place] [address] [place] [address] Internal Medicine 08/18/[address] [place] [address] Registered Dietitian Nutrition 08/26/23 Granite Worker Relationship Specialty Start Date End Date Stephie Ramirez, METALWORKING INSTRUCTOR.TUNNEL WORKER [address] [facility] 300 [place], [place] [id number] Referring Endocrinology 09/19/21 Jean Pierre Kilgore MD [address] [place] [address] [place], [place] [id number] Internal Medicine 08/18/[address] [place] [address] Registered Dietitian Nutrition 08/26/23 Granite Worker Relationship Specialty Start Date End Date Stephie Ramirez, METALWORKING INSTRUCTOR.TUNNEL WORKER [address] [facility] 300 [place] [address] Referring Endocrinology 09/19/21 Jean Pierre Kilgore MD [address] [place] [address] [place] [address] Internal Medicine 08/18/[address] [place] [address] Registered Dietitian Nutrition 08/26/23 Granite Worker Relationship Specialty Start Date End Date Stephie Ramirez, METALWORKING INSTRUCTOR.TUNNEL WORKER [address] [facility] 300 [place] [address] Referring Endocrinology 09/19/21 Jean Pierre Kilgore MD [address] [place] [address] [place] [address] Internal Medicine 08/18/[address] [place] [address] Registered Dietitian Nutrition 08/26/23 Granite Worker Relationship Specialty Start Date End Date Stephie Ramirez, METALWORKING INSTRUCTOR.TUNNEL WORKER [address] [place], [place] [id number] Referring Endocrinology 09/19/21 Jean Pierre Kilgore MD [address] [place] [address] [place], [place] [id number] Internal Medicine 08/18/[address] [place], [place] 462081 Registered Dietitian Nutrition 08/26/23 Granite Worker Relationship Specialty Start Date End Date Stephie Ramirez, METALWORKING INSTRUCTOR.TUNNEL WORKER [address] [place] [address] Referring Endocrinology 09/19/21 Jean Pierre Kilgore MD [address] [place] [address] [place] [address] Internal Medicine 08/18/[address] [place] [address] Registered Dietitian Nutrition 08/26/23 Granite Worker Relationship Specialty Start Date End Date Stephie Ramirez, METALWORKING INSTRUCTOR.TUNNEL WORKER [address] [place], [place] [id number] Referring Endocrinology 09/19/21 Jean Pierre Kilgore MD [address] [place] [address] [place], [place] [id number] Internal Medicine 08/18/[address] [place] [place] 169201 Registered Dietitian Nutrition 08/26/23 Granite Worker Relationship Specialty Start Date End Date Stephie Ramirez, METALWORKING INSTRUCTOR.TUNNEL WORKER [address] [place], [place] [id number] Referring Endocrinology 09/19/21 Jean Pierre Kilgore MD [address] [place] [address] [place], [place] [id number] Internal Medicine 08/18/[address] [place] [address] Registered Dietitian Nutrition 08/26/23 Granite Worker Relationship Specialty Start Date End Date Stephie Ramirez, METALWORKING INSTRUCTOR.TUNNEL WORKER [address] [facility] [place] [address] Referring Endocrinology 09/19/21 Jean Pierre Kilgore MD [address] [place] [address] [place] [address] Internal Medicine 08/18/[address] [place] [address] Registered Dietitian Nutrition 08/26/23 Granite Worker Relationship Specialty Start Date End Date Stephie Ramirez, METALWORKING INSTRUCTOR.TUNNEL WORKER [address] [place] [address] Referring Endocrinology 09/19/21 Jean Pierre Kilgore MD [address] [place] [address] [place], [place] [id number] Internal Medicine 08/18/[address] [place] [address] Registered Dietitian Nutrition 08/26/23 Granite Worker Relationship Specialty Start Date End Date Stephie Ramirez, METALWORKING INSTRUCTOR.TUNNEL WORKER [address] [place], [place] [id number] Referring Endocrinology 09/19/21 Jean Pierre Kilgore MD [address] [place] [address] [place] [address] Internal Medicine 08/18/[address] [place] [address] Registered Dietitian Nutrition 08/26/23 Granite Worker Relationship Specialty Start Date End Date Stephie Ramirez, METALWORKING INSTRUCTOR.TUNNEL WORKER [address] [place] [address] Referring Endocrinology 09/19/21 Jean Pierre Kilgore MD [address] [place] [address] [place] [address] Internal Medicine 08/18/[address] [place] [address] Registered Dietitian Nutrition 08/26/23 Granite Worker Relationship Specialty Start Date End Date Stephie Ramirez, METALWORKING INSTRUCTOR.TUNNEL WORKER [address] [place], [place] [id number] Referring Endocrinology 09/19/21 Jean Pierre Kilgore MD [address] [place] [address] [place], [place] [id number] Internal Medicine 08/18/[address] [place], [place] [address] Registered Dietitian Nutrition 08/26/23 Granite Worker Relationship Specialty Start Date End Date Stephie Ramirez, METALWORKING INSTRUCTOR.TUNNEL WORKER [address] [place], [place] [id number] Referring Endocrinology 09/19/21 Jean Pierre Kilgore MD [address] [place] [address] [place], [place] [id number] Internal Medicine 08/18/[address] [place] [address] Registered Dietitian Nutrition 08/26/23 Granite Worker Relationship Specialty Start Date End Date Stephie Ramirez, METALWORKING INSTRUCTOR.TUNNEL WORKER [address] [place] [address] Referring Endocrinology 09/19/21 Jean Pierre Kilgore MD [address] [place] [address] [place] [address] Internal Medicine 08/18/[address] [place] [address] Registered Dietitian Nutrition 08/26/23 Granite Worker Relationship Specialty Start Date End Date Stephie Ramirez, ADALI.TUNNEL WORKER [address] [facility] [address] [place], [place] [id number] Referring Endocrinology 09/19/21 Jean Pierre Kilgore MD [address] [place] [address] [place] [address] Internal Medicine 08/18/[address] [place] [address] Registered Dietitian Nutrition 08/26/23 Granite Worker Relationship Specialty Start Date End Date Stephie Ramirez, METALWORKING INSTRUCTOR.TUNNEL WORKER [address] [place] [address] Referring Endocrinology 09/19/21 Jean Pierre Kilgore MD [address] [place] [address] [place] [address] Internal Medicine 08/18/[address] [place] [address] Registered Dietitian Nutrition 08/26/23 Granite Worker Relationship Specialty Start Date End Date Stephie Ramirez, METALWORKING INSTRUCTOR.TUNNEL WORKER [address] [place] [address] Referring Endocrinology 09/19/21 Jean Pierre Kilgore MD [address] [place] [address] [place] [address] Internal Medicine 08/18/[address] [place] [address] Registered Dietitian Nutrition 08/26/23 Granite Worker Relationship Specialty Start Date End Date Stephie Ramirez, METALWORKING INSTRUCTOR.TUNNEL WORKER [address] [place] [address] Referring Endocrinology 09/19/21 Jean Pierre Kilgore MD [address] [place] [address] [place] [address] Internal Medicine 08/18/[address] [place] [address] Registered Dietitian Nutrition 08/26/23 Granite Worker Relationship Specialty Start Date End Date Stephie Ramirez, METALWORKING INSTRUCTOR.TUNNEL WORKER [address] [place] [address] Referring Endocrinology 09/19/21 Jean Pierre Kilgore MD [address] [place] [address] [place] [address] Internal Medicine 08/18/[address] [place] [address] Registered Dietitian Nutrition 08/26/23 Granite Worker Relationship Specialty Start Date End Date Stephie Ramirez, METALWORKING INSTRUCTOR.TUNNEL WORKER [address] [place] [address] Referring Endocrinology 09/19/21 Jean Pierre Kilgore MD [address] [place] [address] [place], [place] [id number] Internal Medicine 08/18/[address] [place] [address] Registered Dietitian Nutrition 08/26/23 Granite Worker Relationship Specialty Start Date End Date Stephie Ramirez, METALWORKING INSTRUCTOR.TUNNEL WORKER [facility] [place], [place] [id number] Referring Endocrinology 09/19/21 Jean Pierre Kilgore MD [address] [place] [address] [place], [place] [id number] Internal Medicine 08/18/[address] [place] [address] Registered Dietitian Nutrition 08/26/23 Granite Worker Relationship Specialty Start Date End Date Stephie Ramirez, METALWORKING INSTRUCTOR.TUNNEL WORKER [facility] [address] [place] [address] Referring Endocrinology 09/19/21 Jean Pierre Kilgore MD [address] [place] [address] [place], [place] [id number] Internal Medicine 08/18/[address] [place] [address] Registered Dietitian Nutrition 08/26/23 Granite Worker Relationship Specialty Start Date End Date Stephie Ramirez APRN.TUNNEL WORKER [address] [place], [place] [id number] Referring Endocrinology 09/19/21 Jean Pierre Kilgore MD [address] [place], [place] [id number] Internal Medicine 08/18/[address] [place] [address] Registered Dietitian Nutrition 08/26/23 Scheduled Active and [...] Andreia Rose RN - Reason: Patient/family refused) Ozxpjzti-Njaenol-Nlasoi& Ivacaf (Trikafta) oral tablet therapy pack 1 Tablet 1 Tablet, Oral, DAILY, First dose on 05/12/22 at 1630, Until Discontinued, Home Medication: 2 orange tablets in AM every even day, and 1 orange table in AM every odd day. Do not take blue pills. Take with fat containing food. Home supply verified over the phone with OLEKSANDR Pryor at [facility] 05-12-22. RN must override scan for administration., [...] Virk, OLEKSANDR) fluticasone (FLONASE) nasal spray 1 [place] 1 [place], Each Nare, 2 TIMES DAILY, 180 doses, First dose on 05/12/22 at 2100, Last dose on 08/10/22 at 0900, OP SI [place] by Each Nare route 2 times daily [...] - Provider: Magalie Kuhn, OLEKSANDR) pancrelipase (CREON) [id number] units capsule 108,000 Units 108,000 Units (14,400 [...] BE BASED ON THE PRIMARY CLINICAL RECORDS. [employer] provides no warranty or guarantee of the accuracy or completeness of information in this document.
[2025-05-03] MEDS: 0.9% Normal Saline (1000mL) 1,000 ML 100 ML IV (01:11)
[2025-05-03 01:21] LABS: Magnesium 1.8 mg/dL (1.5-2.2); Phosphorus 3.6 mg/dL (2.7-4.5)
--- OUTSIDE RECORDS SUMMARY | 2025-05-03 02:15 | XMS RPT_ITS | CCD ---
Author Organization [facility] Care Team Providers Care Repairer Shoe Sticks Name Role Phone DARRIAN, STEPHIE J Unavailable Unavailable IMCA Unavailable Unavailable DARRIAN, STEPHIE J Unavailable Unavailable IMCA Unavailable Unavailable DARRIAN, STEPHIE J Unavailable Unavailable DARRIAN, STEPHIE J Unavailable Unavailable DARRIAN, STEPHIE J Unavailable Unavailable DARRIAN, STEPHIE J Unavailable Unavailable DARRIAN, STEPHIE J Unavailable Unavailable IMCA Unavailable Unavailable DARRIAN, STEPHIE J Unavailable Unavailable DARRIAN, STEPHIE J Unavailable Unavailable Darrian MATERIAL DISPOSITION INSPECTOR.Stephie BIANCHI Unavailable Jean Pierre Kilgore MD Unavailable No high density talc coater operator, Md Primary Care Provider Zeynep vailable Orquidea Crespo Unavailable [phone] Mike EDWARD/LD, Orquidea Unavailable Garry MATERIAL DISPOSITION INSPECTOR-Jasmyn BIANCHI Unavailable Merlin RN, Maryam Patton Unavailable Unavailable Luis Eduardo LEGGETT, Whitley Jones Unavailable Unavailable PHYSICIAN, NONE Primary Care Physician Unavailab le PROVIDER, UNKNOWN Attending Unavailable PROVIDER, UNKNOWN Admitting Unavailable Darrian MATERIAL DISPOSITION INSPECTOR.Stephie BIANCHI Unavailable Darrian MATERIAL DISPOSITION INSPECTOR.Stephie BIANCHI Unavailable NO PRIMARY CARE, Primary [...] Unavailable Herman, Lenora Dawn Primary Care Unavailable ESQUIVLE, JE Attending Unavailable ESQUIVEL, JE Referring Unavailable [...] Drug Allergy 6 Rash, Other: See Comments [facility] Glycopeptides (antibiotic) (4 sources) Vancomycin Drug Allergy 3 Itching, Rash [facility] linezolid (4 sources) linezolid Drug Allergy 3 Rash, GI Upset [facility] Work Phone: (20 sources) cefOXitin; Translations: [CEFOXITIN] Drug Allergy 6 Rash, Other (See Comments), Other: See Comments [facility] Repository (20 sources) Vancomycin; Translations: [VANCOMYCIN] Drug Allergy 3 Itching, Rash [facility] (20 sources) linezolid; Translations: [LINEZOLID] Drug Allergy 3 Rash, GI Upset [facility] Work Phone: Medications Current Medications Medication Drug [...] as needed for wheezing/shortness of breath. amylase 784260 unt / lipase 94489 unt / protease [id number] unt delayed release oral capsule (20 sources) [...] 02/09/2025 Active Start: 01-14-2022 End: 01-14-2023 CREON 53737-474644 units cap cyndy Take 3 Capsules (108,000 [...] by inhalation three times daily aztreonam lysine ([facility]) 75 mg/mL nebulizer solution Indications: Cystic fibrosis [...] sugar s 3x/day Blood-Glucose Meter,Continuous (DEXCOM G7 SHIFT SUPERVISOR RN) misc (20 sources) Start: 02-27-2023 Blood-Glucose Meter,Continuous (DEXCOM G7 SHIFT SUPERVISOR RN) misc Indications: Type 1 diabetes mellitus with hyperglycemia (HCC) For monitoring sugars 1 Each 02/27/2023 Suspended Start: 02-27-2023 Blood-Glucose Meter,Continuous (DEXCOM G7 SHIFT SUPERVISOR RN) misc Indications: Type 1 diabetes mellitus with [...] Comment on above: Take [address] [facility] two times a week. ciprofloxacin 750 mg [...] Comment on above: Take 1 tablet by [facility] twice daily for 21 days. Take 1 tablet by [facility] three times daily for 14 days. Take 1 tablet by [facility] three times daily for 21 days. [...] times a day. 28 tablet 04/08/2025 Active Ridijscp-Lkowzlb-Tuj caf&Ivacaf (TRIKAFTA) 100-50-75 & 150 MG oral tablet therapy pack (1 source) Start: 1 take 1 tablet by mouth in the morning Snnxezjs-Yjasztz-Humg af&Ivacaf (TRIKAFTA) 100-50-75 & 150 MG oral [...] 02-25-2022 vitamin D (ERG OCALCIFEROL) 1.25 MG (29951 UT) capsule Take 1 Capsule (50,000 Units) [...] diabetes mellitus with hyperglycemia (HCC) Use 1 Montour in the nose as needed. May repeat [...] SIGNIFICANT LOW BLOOD SUGAR EVENT Use 1 Montour in the n ose as needed. May [...] Comment on above: Take [address] [facility] twice daily for 5 days. perflutren lipid [...] intravenously daily at bedtime for 10 days. 02288 mL 0 11/27/2022 12/07/2022 Active Start: 11-18-2022 [...] time only for 1 dose. Spacer/Aero-Holding Chambers (Peerlyst DINO) JEAN-PAUL DEVICE (1 source) Start: 05-25-20 Spacer/Aero-Hold ing Chambers (Personal Style Finder) JEAN-PAUL DEVICE by Other route Use as [...] 21 days. Take 2 tablets by mo [facility] twice daily for 14 days. Take 2 tablets by mo [facility] twice daily for 21 days. Take 1 [...] Comment on above: Take 1 tablet by [facility] once daily. ascorbic acid 226 mg / beta carotene 86593 unt / cuprous oxide 0.8 mg / dl-alpha tocopheryl acetate 200 unt / zinc oxide 34.8 mg oral capsule (20 sources) Vitamin C Start: 08-26-2023 End: 07-06-2024 take 1 capsule by mouth twice daily at mealtime Vit A,C,L-Qzyq-Ynftaj (PRESERVISION AREDS) 4,296 mcg-226 mg-90 mg cap Take 1 capsule by mouth twice daily. Take with food. 60 capsule 0 08/26/2023 07/06/2024 Discontinued (Discontinued by another Health Care Provider) Start: 08-26-2023 End: 07-06-2024 PRESERVISION AREDS-2 250-90- 40-1 mg Start: 08-26-2023 PRESERVISION A REDS-2 250-90-40-1 mg Start: 08-26-2023 take [address] [facility] twice daily at mealtime PRESERVISION AREDS-2 250-90-40-1 mg take 1 capsule by mouth twice a day with food 0 08/26/2023 Suspended Start: 08-26-2023 take [address] [facility] twice daily at mealtime PRESERVISION AREDS-2 250-90-40-1 mg take 1 capsule by mouth twice a day with food 0 08/26/2023 Active Comment on above: Take 1 capsule by mo [facility] twice daily. Take with food. take [address] [facility] twice a day with food bumetanide 1 [...] mg by mouth. Take 1 tablet by nlis th once daily. Take 20 mg by mouth once daily. Reports not taking at this time. Aeajqppl-Nqfbdmi-I vacaf&Ivacaf (Trikafta) oral tablet therapy pack 1 [...] over the phone with OLEKSANDR Pryor at [facility] 05-12-22. RN must override scan for administration. [...] 84 Each 1 09/25/2022 Active End: 09-25-2022 bimomftiunt-qplfalqhop-jrfdb ftor (TRIKAFTA) 100-50-75 mg(d) /150 mg (n) [...] 03/10/2023 Discontinued Start: 05-12-2022 End: 05-14-2022 1 Montour, Each Nare, 2 TIMES DAILY, 180 doses, First dose on 05/12/22 at 2100, Last dose on 08/10/22 at 0900 OP SI Montour by Each Nare route 2 times daily Start: 01-14-2022 End: 01-14-2023 fluticasone (FLONASE) 50 MCG /ACT nasal spray 1 Montour by Each Nare route 2 times daily [...] Discontinued Start: 01-14-2022 take 1 puff(s) by [facility] twice daily fluticasone-salmeterol (ADVAIR) 500-50 MCG/DOSE diskus [...] Comment on above: Take 1 tablet by inls th once daily for 14 days. 10 [...] am and 4 pm. polyethylene glycol 3350 74150 mg powder for oral solution (20 sources) Osmotic Laxative Start: 02-16-2024 End: 07-06-2024 polyethylene glycol 3350 17 gram packet Take 1 Packet by mouth once daily as needed. Dissolve dose in 4 - 8 ounces of liquid and take as directed. 0 02/16/2024 07/06/2024 Discontinued (Discontinued by another Health Care Provider) Start: 12-04-2023 End: 02-16-2024 polyethylene glycol 3350 (MT RALAX) 17 gram/dose powder Indications: Cystic fibrosis [...] Comment on above: Take [address] [facility] once daily for 5 days. sennosides, detention 8.6 mg oral tablet (1 source) Start: 05-12-20 End: 05-14-20 senna (SENOKOT) tablet 8.6 mg torsemide 10 mg oral tablet (20 sources) Loop Diuretic Start: 07-24-20 End: 02-16-20 take 1 tablet by mouth once daily torsemide (DEMADEX) 10 mg tablet Take 1 tablet by mouth once daily. 30 tablet 0 07/24/2023 02/16/2024 Discontinued Comment on above: Take 1 tablet by [facility] once daily. tranexamic acid 650 mg [...] mg by mouth twice daily. vitamin a 37870 unt oral capsule (20 sources) Vitamin A [...] on above: Take 1 capsule by mo [facility] once daily for 2 weeks and 2 [...] Respiratory failure; insufficiency; arrest (adult) (20 sources) Hgvog-wa-csmooiz respiratory failure; Translations: [Acute and chronic respiratory [...] CNOV Office Visit (ENAGST ) JAY BARBER ([id number]) 1995 Date Time Provider Department 02/14/25 2:30 PM STEPHIE RAMIREZ During your visit today, we recorded the following information about you: Pulse Blood pressure Weight Height 85/minute 131/83 39.7 kg 1.565 m Stephie Ramirez APRN.ACID CLEANER 02/14/2025 6:50 PM Signed Subjective Date of [...] appointment with nephrology, 07/2023: prot/creat ratio in [facility] Lipid Profile:10/2013: TC 111, HDL 42, LDL [...] results in care everywhere, 01/2020: labs in [facility], 07/2020; Alkaline Phosphatase 725 (45-117), ALT 77 (16-61), AST 163 (15-37), 12/2020: results in care everywhere., 03/2021: results In care everywhere, 12/2021: Alkaline Phosphatase 918 (38-113), bone percent 13.9%, liver percent 86.1 , 12/2022: liver function monitored by CF providers, 03/2023: in [facility], 08/2023: LFTS in [facility], 10/2023: LFTS in [facility], 03/2024: liver test in [facility], 10/2024: liver in [facility], 01/2025: liver in [facility] Dilated Eye Exam: Patient educated to have ophthalmology visits at least once a year. 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 08/2013: New patient visit for Cystic Fibrosis related Diabetes [facility] prior to today's office visit. [...] Date range: (more content not included)... Normal [facility] Comprehensive metabolic 2000 panelon 02-14-2025 Albumin [Mass/Vol] 2.0 g/dL Low 3.9-4.9 [facility] Comment on above: Order Comment: Speci men Type: BLOOD SPECIMEN Ordering Facility: [facility] Address: [address] [place] [address] Performed By: #### 2 4323-8 #### [facility] CLIA [id number] [address] [place] [facility] ALP [Catalytic activity/Vol] 1416 U/L High 38-113 [facility] Comment on above: Order Comment: Speci men Type: BLOOD SPECIMEN Ordering Facility: [facility] Address: [address] [place] [address] Performed By: #### 2 4323-8 #### [facility] CLIA [id number] [address] ALT With P-5'-P [Catalytic activity/Vol] 41 U/L Normal 10-54 [facility] Comment on above: Order Comment: Speci men Type: BLOOD SPECIMEN Ordering Facility: [facility] Address: [address] [place] [address] Performed By: #### 2 4323-8 #### [facility] CLIA [id number] [address] Anion gap [Moles/Vol] 9 mmol/L Normal 8-15 [facility] Comment on above: Order Comment: Speci men Type: BLOOD SPECIMEN Ordering Facility: [facility] Address: [facility] [place] [address] Performed By: #### 2 4323-8 #### [facility] CLIA [id number] [address] [place] AST With P-5'-P [Catalytic activity/Vol] 78 U/L High 14-40 [facility] Comment on above: Order Comment: Speci men Type: BLOOD SPECIMEN Ordering Facility: [facility] Address: [address] [place] [address] Performed By: #### 2 4323-8 #### [facility] CLIA [id number] 1 [place] [address] [place] Bilirubin [Mass/Vol] 0.3 mg/dL Normal 0.2-1.3 [facility] Comment on above: Order Comment: Speci men Type: BLOOD SPECIMEN Ordering Facility: [facility] Address: [address] [place] [address] Performed By: #### 2 4323-8 #### [facility] CLIA [id number] 1 [place] [address] [place] Calcium [Mass/Vol] 8.1 mg/dL Low 8.5-10.2 [facility] Comment on above: Order Comment: Speci men Type: BLOOD SPECIMEN Ordering Facility: [facility] Address: [address] [place] [address] Performed By: #### 2 4323-8 #### [facility] CLIA [id number] 1 [place] [address] [place] Chloride [Moles/Vol] 103 mmol/L Normal 98-107 [facility] Comment on above: Order Comment: Speci men Type: BLOOD SPECIMEN Ordering Facility: [facility] Address: [address] [place] [address] Performed By: #### 2 4323-8 #### [facility] CLIA [id number] [address] [place] CO2 [Moles/Vol] 21 mmol/L Low 22-30 [facility] Comment on above: Order Comment: Speci men Type: BLOOD SPECIMEN Ordering Facility: [facility] Address: [address] [place] [address] Performed By: #### 2 4323-8 #### [facility] CLIA [id number] [address] [place] Creatinine [Mass/Vol] 1.36 mg/dL High 0.73-1.22 [facility] Comment on above: Order Comment: Speci men Type: BLOOD SPECIMEN Ordering Facility: [facility] Address: [address] [place] [address] Performed By: #### 2 4323-8 #### [facility] CLIA [id number] 1 [place] [address] [place] Creatinine and Glomerular filtration rate.predicted panel (S/P/Bld) 71 mL/min/1.73m??? Normal >=60 [facility] Comment on above: Order Comment: Kanu sainz Type: BLOOD SPECIMEN Ordering Facility: [facility] Address: [address] [place] [address] Result Comment: Janeth mated Glomerular Filtration Rate [...] GFR. Performed By: #### 2 4323-8 #### [facility] CLIA [id number] [address] [place] [address] [place] Glucose [Mass/Vol] 109 mg/dL High 74-99 [facility] Comment on above: Order Comment: Kanu sainz Type: BLOOD SPECIMEN Ordering Facility: [facility] Address: [address] [place] [address] Result Comment: The [place] Diabetes Association (ADA) provides guidance for cutoff [...] Standards of Medical Care in Diabetes 2016, [place] [employer] Association. Diabetes Care. 2016.39(Suppl 1). Performed By: #### 2 4323-8 #### [facility] CLIA [id number] 1 [place] [address] [place] Potassium [Moles/Vol] 4.3 mmol/L Normal 3.7-5.1 [facility] Comment on above: Order Comment: Kanu sainz Type: BLOOD SPECIMEN Ordering Facility: [facility] Address: [address] [place] [address] Performed By: #### 2 4323-8 #### [facility] CLIA [id number] 1 [place] [address] [place] Protein [Mass/Vol] 7.4 g/dL Normal 6.3-8.0 [facility] Comment on above: Order Comment: Paruli men Type: BLOOD SPECIMEN Ordering Facility: [facility] Address: [address] [place] [address] Performed By: #### 2 4323-8 #### [facility] CLIA [id number] 1 [place] [address] [place] Sodium [Moles/Vol] 133 mmol/L Low 136-144 [facility] Comment on above: Order Comment: Paruli men Type: BLOOD SPECIMEN Ordering Facility: [facility] Address: [address] [place] [address] Performed By: #### 2 4323-8 #### [facility] CLIA [id number] 1 [place] [address] [place] Urea nitrogen [Mass/Vol] 33 mg/dL High 9-24 [facility] Comment on above: Order Comment: Kanu alistair Type: BLOOD SPECIMEN Ordering Facility: [facility] Address: [address] [place] [address] Performed By: #### 2 4323-8 #### [facility] CLIA [id number] 1 [place] [address] [place] STREP A MOLECULAR (POC)on Procedural Control Valid 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 Slight shift in superimposed hazy airspace opacities suggesting evolving infectious/inflammato ry process. Clinical correlation requested. Commercial Energy Rater: KATHIE Transcribe Date/Time: Feb 07 2025 11:33A Dictated by : LILLIANA MOODY MD This examination was interpreted and the report reviewed and electronically signed by: LILLIANA MOODY MD on Feb 07 2025 11:36AM [facility] DIVISION OF RADIOLOGY * * *Final [...] upper abdomen. DIVISION OF RADIOLOGY Provider, [facility] - 02/07/2025 * * *Final Report* [...] evolving infectious/inflammato ry process. Clinical correlation requested. [employer] Rater: PSCB Transcribe Date/Time: Feb 07 2025 11:33A Dictated by : LILLIANA MOODY MD This examination was interpreted and the report reviewed and electronically signed by: LILLIANA MOODY MD on Feb 07 2025 11:36AM EST [facility] Radiology Study observation (narrative) [facility] XR Chest PA and LateralOrder ed By: [facility] Provider on 02-07-2025 [facility] 10-14-2024 [place] Telephone (ENAGST) JAY BARBER ([id number]) 1995 M Date Time Provider Department 10/14/24 STEPHIE RAMIREZ During your visit today, we recorded the following information about you: Stephie Ramirez, ADALI.ACID CLEANER 10/14/2024 11:32 AM Signed 10/2024: TSH 1.81 [...] Date Reviewed: 10/12/2024 Reviewed by: Stephie Ramirez APRN.ACID CLEANER - Fully Assessed Reason for Visit: Results [...] total units a day - Blood-Glucose Sensor (Familonet G7 SENSOR) jean-paul use as directed and REPLACE every 10 days - Insulin Mabank, Disposable, (BD YARON 2ND GEN PEN NEEDLE) [...] a week. - Blood-Glucose Meter,Continuous (DEXCOM G7 SHIFT SUPERVISOR RN) [facility] For monitoring sugars - glucagon (BAQSIMI) 3 mg/actuation nasal spray Use 1 Montour in the nose as needed. May repeat [...] Iron def (more content not included)... Normal [facility] CBC W Auto Differential pane l (Bld)on 10-12-2024 Basophils (Bld) [#/Vol] 0.09 10*3/uL Normal <0.11 [facility] Comment on above: Order Comment: Speci men Type: BLOOD SPECIMENOrdering Facility: [facility] Address: [address] [place] [address] Performed By: #### 5 7021-8 ####[facility]ORY[facility]IA [id number] [place] [address] [place] Basophils/100 WBC (Bld) 1.3 % Normal [facility] Comment on above: Order Comment: Paruli alistair Type: BLOOD SPECIMENOrdering Facility: [facility] Address: [address] [place] [address] Performed By: #### 5 7021-8 ####[facility]ORY[facility]IA [id number] [place] [address] [place] Differential cell count method Nom (Bld) Auto Normal [facility] Comment on above: Order Comment: Speci men Type: BLOOD SPECIMENOrdering Facility: [facility] Address: [address] [place] [address] Performed By: #### 5 7021-8 ####[facility]ORY[facility]IA [id number] [place] [address] [place] Eosinophils (Bld) [#/Vol] 0.66 10*3/uL High <0.46 [facility] Comment on above: Order Comment: Speci men Type: BLOOD SPECIMENOrdering Facility: [facility] Address: [address] [place] [address] Performed By: #### 5 7021-8 ####[facility]ORYCLIA [id number] [address] [place] [facility] Eosinophils/100 WBC (Bld) 9.3 % Normal [facility] Comment on above: Order Comment: Speci men Type: BLOOD SPECIMENOrdering Facility: [facility] Address: [address] [place] [address] Performed By: #### 5 7021-8 ####[facility]ORYCLIA [id number] [address] [place] Erythrocyte distribution width (RBC) [Ratio] 13.2 % Normal 11.5-15.0 [facility] Comment on above: Order Comment: Speci men Type: BLOOD SPECIMENOrdering Facility: [facility] Address: [address] [place] [address] Performed By: #### 5 7021-8 ####[facility]ORYCLIA [id number] [address] [place] Hematocrit (Bld) [Volume fraction] 30.7 % Low 39.0-51.0 [facility] Comment on above: Order Comment: Speci men Type: BLOOD SPECIMENOrdering Facility: [facility] Address: [address] [place] [address] Performed By: #### 5 7021-8 ####[facility]ORYCLIA [id number] [address] [place] Hemoglobin (Bld) [Mass/Vol] 9.7 g/dL Low 13.0-17.0 [facility] Comment on above: Order Comment: Speci men Type: BLOOD SPECIMENOrdering Facility: [facility] Address: [address] [place] [address] Performed By: #### 5 7021-8 ####[facility] [id number] [address] [place] Immature granulocytes (Bld) [#/Vol] 10*3/uL Normal <0.10 [facility] Comment on above: Order Comment: Speci men Type: BLOOD SPECIMENOrdering Facility: [facility] Address: [address] [place] [address] Performed By: #### 5 7021-8 ####[facility]ORYCLIA [id number] [address] [facility] Immature granulocytes/100 WBC (Bld) 0.3 % Normal [facility] Comment on above: Order Comment: Speci men Type: BLOOD SPECIMENOrdering Facility: [facility] Address: [address] [place] [address] Performed By: #### 5 7021-8 ####[facility]ORYCLIA [id number] [address] [place] Lymphocytes (Bld) [#/Vol] 1.53 10*3/uL Normal 1.00-4.00 [facility] Comment on above: Order Comment: Speci men Type: BLOOD SPECIMENOrdering Facility: [facility] Address: [address] [place] [address] Performed By: #### 5 7021-8 ####[facility]ORYCLIA [id number] [address] Lymphocytes/100 WBC (Bld) 21.6 % Normal [facility] Comment on above: Order Comment: Speci men Type: BLOOD SPECIMENOrdering Facility: [facility] Address: [address] [place] [address] Performed By: #### 5 7021-8 ####[facility]ORYCLIA [id number] [address] [place] MCH (RBC) [Entitic mass] 30.3 pg Normal 26.0-34.0 [facility] Comment on above: Order Comment: Speci men Type: BLOOD SPECIMENOrdering Facility: [facility] Address: [address] [place] [address] Performed By: #### 5 7021-8 ####[facility]ORYCLIA [id number] [address] [place] [facility] MCHC (RBC) [Mass/Vol] 31.6 g/dL Normal 30.5-36.0 [facility] Comment on above: Order Comment: Speci men Type: BLOOD SPECIMENOrdering Facility: [facility] Address: [address] [place] [address] Performed By: #### 5 7021-8 ####[facility]ORYCLIA [id number] [address] [place] MCV (RBC) [Entitic vol] 95.9 fL Normal 80.0-100.0 [facility] Comment on above: Order Comment: Speci men Type: BLOOD SPECIMENOrdering Facility: [facility] Address: [address] [place] [address] Performed By: #### 5 7021-8 ####[facility]ATORYCLIA [id number] [address] [place] Monocytes (Bld) [#/Vol] 0.74 10*3/uL Normal <0.87 [facility] Comment on above: Order Comment: Speci men Type: BLOOD SPECIMENOrdering Facility: [facility] Address: [address] [place] [address] Performed By: #### 5 7021-8 ####[facility]ATORYCLIA [id number] [address] Monocytes/100 WBC (Bld) 10.5 % Normal [facility] Comment on above: Order Comment: Speci men Type: BLOOD SPECIMENOrdering Facility: [facility] Address: [address] [place] [address] Performed By: #### 5 7021-8 ####[facility]ATORYCLIA [id number] [address] [place] Neutrophils (Bld) [#/Vol] 4.03 10*3/uL Normal 1.45-7.50 [facility] Comment on above: Order Comment: Speci men Type: BLOOD SPECIMENOrdering Facility: [facility] Address: [address] [place] [address] Performed By: #### 5 7021-8 ####[facility] LABORATORYCLIA [id number] [address] Neutrophils/100 WBC (Bld) 57.0 % Normal [facility] Comment on above: Order Comment: Speci men Type: BLOOD SPECIMENOrdering Facility: [facility] Address: [address] [place] [address] Performed By: #### 5 7021-8 ####[facility] LABORATORYCLIA [id number] [address] Nucleated RBC (Bld) [#/Vol] 10*3/uL Normal <0.01 [facility] Comment on above: Order Comment: Speci men Type: BLOOD SPECIMENOrdering Facility: [facility] Address: [address] [place] [address] Performed By: #### 5 7021-8 ####[facility] LABORATORYCLIA [id number] [address] Nucleated RBC/100 WBC (Bld) [Ratio] 0.0 /100 WBC Normal [facility] Comment on above: Order Comment: Speci men Type: BLOOD SPECIMENOrdering Facility: [facility] Address: [address] [place] [address] Performed By: #### 5 7021-8 ####[facility] LABORATORYCLIA [id number] [address] Platelet mean volume (Bld) [Entitic vol] 10.3 fL Normal 9.0-12.7 [facility] Comment on above: Order Comment: Speci men Type: BLOOD SPECIMENOrdering Facility: [facility] Address: [address] [place] [address] Performed By: #### 5 7021-8 ####[facility] LABORATORYCLIA [id number] [address] [place] Platelets (Bld) [#/Vol] 172 10*3/uL Normal 150-400 [facility] Comment on above: Order Comment: Speci men Type: BLOOD SPECIMENOrdering Facility: [facility] Address: [address] [place] [address] Performed By: #### 5 7021-8 ####[facility] LABORATORYCLIA [id number] [address] [facility] RBC (Bld) [#/Vol] 3.20 10*6/uL Low 4.20-6.00 [facility] Comment on above: Order Comment: Speci men Type: BLOOD SPECIMENOrdering Facility: [facility] Address: [address] [place] [address] Performed By: #### 5 7021-8 ####[facility] LABORATORYCLIA [id number] [address] WBC (Bld) [#/Vol] 7.07 10*3/uL Normal 3.70-11.00 [facility] Comment on above: Order Comment: Speci men Type: BLOOD SPECIMENOrdering Facility: [facility] Address: [address] [place] [address] Performed By: #### 5 7021-8 ####[facility] LABORATORYCLIA [id number] [address] CNOVon 10-12-2024 CNOV Office Visit (ENAGST ) JAY BARBER ([id number]) 1995 M Date Time Provider Department 10/12/24 2:00 PM STEPHIE RAMIREZ During your visit today, we recorded the following information about you: Blood pressure Weight Height 136/80 39.8 kg 1.575 m Stephie Ramirez APRN.ACID CLEANER 10/14/2024 11:32 AM Addendum Subjective Date of [...] further kidney damage., 10/2022: prot/creat ratio in [facility], making appointment with nephrology, 07/2023: prot/creat ratio in [facility] Lipid Profile:10/2013: TC 111, HDL 42, LDL [...] results in care everywhere, 01/2020: labs in [facility], 07/2020; Alkaline Phosphatase 725 (45-117), ALT 77 (16-61), AST 163 (15-37), 12/2020: results in care everywhere., 03/2021: results In care everywhere, 12/2021: Alkaline Phosphatase 918 (38-113), bone percent 13.9%, liver percent 86.1 , 12/2022: liver function monitored by [facility] providers, 03/2023: in [facility], 08/2023: LFTS in [facility], 10/2023: LFTS in [facility], 03/2024: liver test in [facility], 10/2024: liver in [facility] Dilated Eye Exam: Patient educated to have ophthalmology visits at least once a year. 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 08/2013: New patient visit for Cystic Fibrosis related Diabetes [facility] to today's office visit. [...] but significan (more content not included)... Normal [facility] Comprehensive metabolic 2000 panelon 10-12-2024 Albumin [Mass/Vol] 2.4 g/dL Low 3.9-4.9 [facility] Comment on above: Order Comment: Kanu sainz Type: BLOOD SPECIMEN [facility] Address: [address] [place] [address] Performed By: #### 2 4323-8, 3015-3, #### [facility] CLIA [id number] [address] [place] [facility] ALP [Catalytic activity/Vol] 997 U/L High 38-113 [facility] Comment on above: Order Comment: Paruli alistair Type: BLOOD SPECIMEN [facility] Address: [address] [place] [address] Performed By: #### 2 4323-8, 3, #### [facility] CLIA [id number] [address] [facility] ALT With P-5'-P [Catalytic activity/Vol] 53 U/L Normal 10-54 [facility] Comment on above: Order Comment: Paruli alistair Type: BLOOD SPECIMEN [facility] Address: [address] [place] [address] Performed By: #### 2 4323-8, 3, #### [facility] CLIA [id number] [address] Anion gap [Moles/Vol] 6 mmol/L Low 8-15 [facility] Comment on above: Order Comment: Speci men Type: BLOOD SPECIMEN [facility] Address: [address] [place] [address] Performed By: #### 2 4323-8, 3, #### [facility] CLIA [id number] [address] [place] AST With P-5'-P [Catalytic activity/Vol] 82 U/L High 14-40 [facility] Comment on above: Order Comment: Speci men Type: BLOOD SPECIMEN [facility] Address: [address] [place] [address] Performed By: #### 2 4323-8, 3, #### [facility] CLIA [id number] [address] [place] Bilirubin [Mass/Vol] 0.5 mg/dL Normal 0.2-1.3 [facility] Comment on above: Order Comment: Speci men Type: BLOOD SPECIMEN [facility] Address: [address] [place] [address] Performed By: #### 2 4323-8, 3016-01, #### [facility] CLIA [id number] [address] [place] Calcium [Mass/Vol] 8.4 mg/dL Low 8.5-10.2 [facility] Comment on above: Order Comment: Speci men Type: BLOOD SPECIMEN [facility] Address: [address] [place] [address] Performed By: #### 2 4323-8, 3016-01, #### [facility] CLIA [id number] [address] [place] [address] [place] Chloride [Moles/Vol] 106 mmol/L Normal 98-107 [facility] Comment on above: Order Comment: Speci men Type: BLOOD SPECIMEN [facility] Address: [address] [place] [address] Performed By: #### 2 4323-8, 3, #### [facility] CLIA [id number] [address] [place] [address] [place] CO2 [Moles/Vol] 24 mmol/L Normal 22-30 [facility] Comment on above: Order Comment: Speci men Type: BLOOD SPECIMEN [facility] Address: [address] [place] [address] Performed By: #### 2 4323-8, 3, #### [facility] CLIA [id number] [address] [place] Creatinine [Mass/Vol] 1.24 mg/dL High 0.73-1.22 [facility] Comment on above: Order Comment: Specyolanda men Type: BLOOD SPECIMEN [facility] Address: [address] [place] [address] Performed By: #### 2 4323-8, 3016-01, #### [facility] CLIA [id number] [address] Creatinine and Glomerular filtration rate.predicted panel (S/P/Bld) 80 mL/min/1.73m??? Normal >=60 [facility] Comment on above: Order Comment: Specyolanda sainz Type: BLOOD SPECIMEN [facility] Address: [address] [place] [address] Result Comment: Janeth mated Glomerular Filtration Rate [...] Performed By: #### 2 4323-8, 3015-3, #### [facility] CLIA [id number] [address] [place] Glucose [Mass/Vol] 101 mg/dL High 74-99 [facility] Comment on above: Order Comment: Speci men Type: BLOOD SPECIMEN [facility] Address: [address] [place] [address] Result Comment: The [place] Diabetes Association (ADA) provides guidance for cutoff [...] Standards of Medical Care in Diabetes 2016, [place] Diabetes Association. Diabetes Care. 2016.39(Suppl 1). Performed By: #### 2 4323-8, 3016-01, #### [facility] CLIA [id number] [address] [place] [address] [place] Potassium [Moles/Vol] 5.4 mmol/L High 3.7-5.1 [facility] Comment on above: Order Comment: Speci men Type: BLOOD SPECIMEN [facility] Address: [address] [place] [address] Performed By: #### 2 4323-8, 3016-01, #### [facility] CLIA [id number] 1 [place] [address] [place] Protein [Mass/Vol] 7.4 g/dL Normal 6.3-8.0 [facility] Comment on above: Order Comment: Speci men Type: BLOOD SPECIMEN [facility] Address: [address] [place] [address] Performed By: #### 2 4323-8, 3016-01, #### [facility] CLIA [id number] [address] [place] [address] [place] Sodium [Moles/Vol] 136 mmol/L Normal 136-144 [facility] Comment on above: Order Comment: Speci men Type: BLOOD SPECIMEN [facility] Address: [address] [place] [address] Performed By: #### 2 4323-8, 3016-3, 67812-0 #### [facility] CLIA [id number] [address] [place] [id number] [place] [facility] Urea nitrogen [Mass/Vol] 22 mg/dL Normal 9-24 [facility] Comment on above: Order Comment: Speci men Type: BLOOD SPECIMEN [facility] Address: [address] [place] [address] Performed By: #### 2 4323-8, 3016-3, 66863-6 #### [facility] CLIA [id number] 1 [place] [phone] [facility] HEMOGLOBIN A1C (POC)on 10-12 HbA1c (Bld) [Mass fraction] 6.3 % Abnormal 4.3 - 5.6 % [facility] Comment on above: Location:[facility], [address] [place] [address] Point of care (POC) Hemoglobin A1c (HGBA1C) [...] specific diabetes management situations: The POC device lacquer sizer provides a normal range of 4.2% to 6.5% for the HGBA1C POC test. However, the [place] Diabetes Association guidelines indicate that patients with [...] Interpretation and review of laboratory results Abnormal [facility] Magnesium SerPl-mCncon 10-12 Magnesium [Mass/Vol] 1.8 mg/dL Normal 1.7-2.3 [facility] Comment on above: Order Comment: Speci men Type: BLOOD SPECIMEN [facility] Address: [facility] [place] [id number] Performed By: #### 2 4323-8, 3016-3, #### [facility] CLIA [id number] 1 [place] [phone] [facility] THYROID STIMULATING HORMONEo n 10-12-2024 TSH Qn 1.810 m[IU]/L [facility] TSH Qnon 10-12-2024 Interpretation and review of laboratory results Normal [facility] TSH SerPl-aCncon 10-12-2024 TSH Qn 1.810 m[IU]/L Normal 0.270-4.200 [facility] Comment on above: Order Comment: Specyolanda sainz Type: BLOOD SPECIMENOrdering Facility: [facility] Address: [facility] [place] [id number] Performed By: #### 2 4323-8, 3, ####[facility] LABORATORYCLIA [id number] [address] [place] [facility] SPIROMETRY BASELINE ONLYon 1 FEF25% PRE (L/S) 0.38 L/S [facility] LFL98-48% LLN (L/S) 2.24 L/S [facility] XPK79-29% PRE (L/S) 0.17 L/S [facility] KGF87-93% PREDICTED (L/S) 3.63 L/S [facility] FEF75% LLN (L/S) 0.74 [facility] FEF75% PRE (L/S0 0.10 [facility] FEF75% PREDICTED (L/S) 1.43 L/S [facility] FEF75% ULN (L/S) 2.56 L/S [facility] FET PRE (S) 15.77 S [facility] FEV1 LLN (L) 2.38 L [facility] FEV1 PRE (L) 0.68 L [facility] FEV1 PREDICTED (L) 3.07 L [facility] FEV1 ULN (L) 3.72 L [facility] FEV1/FVC LLN (%) 75 % [facility] FEV1/FVC PRE (%) 31 % [facility] FEV1/FVC PREDICTED (%) 85 % [facility] FVC LLN (L) 2.78 L [facility] FVC PRE (L) 2.20 L [facility] FVC PREDICTED (L) 3.58 L [facility] FVC ULN (L) 4.39 L [facility] PEF LLN (L/S) 6.69 L/S [facility] PEF PRE (L/S) 3.44 L/S [facility] PEF ULN (L/S) 10.27 L/S [facility] [address] [place] [address] Test Date: 2024-09-09 Pat Name: JAY BARBER Department: Room: 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 Start of test and EOFE criteria met. //SRB PULMONARY FUNCTION LAB [facility] CBC W/Diff, Automatedon 10-0 Absolute Neut Normal 2.0-7.7 [facility] Comment on above: Result Comment: Canc elled via OM: Order cancelled - Patient discharged Performed By: #### L 100.0100, L500.3400, L500.4050 #### [facility] [address] [facility] [address] HCT Normal 40-54 [facility] Comment on above: Result Comment: Canc elled via OM: Order cancelled - Patient discharged Performed By: #### L 100.0100, L500.3400, L500.4050 #### [facility] [address] [facility] [address] HGB Normal 13.0-16.5 [facility] Comment on above: Result Comment: Canc elled via OM: Order cancelled - Patient discharged Performed By: #### L 100.0100, L500.3400, L500.4050 #### [facility] [address] [place], [address] MCH Normal 27.0-32.0 [facility] Comment on above: Result Comment: Canc elled via OM: Order cancelled - Patient discharged Performed By: #### L 100.0100, L500.3400, L500.4050 #### [facility] [address] [place], [address] MCHC Normal 32-36 [facility] Comment on above: Result Comment: Canc elled via OM: Order cancelled - Patient discharged Performed By: #### L 100.0100, L500.3400, L500.4050 #### [facility] [address] [place], [address] MCV Normal 80-94 [facility] Comment on above: Result Comment: Canc elled via OM: Order cancelled - Patient discharged Performed By: #### L 100.0100, L500.3400, L500.4050 #### [facility] [address] [place], [address] NEUT% Normal 47-70 [facility] Comment on above: Result Comment: Canc elled via OM: Order cancelled - Patient discharged Performed By: #### L 100.0100, L500.3400, L500.4050 #### [facility] [address] [place], [address] PLT Normal 150-450 [facility] Comment on above: Result Comment: Canc elled via OM: Order cancelled - Patient discharged Performed By: #### L 100.0100, L500.3400, L500.4050 #### [facility] [address] [place], [address] RBC Normal 4.6-6.2 [facility] Comment on above: Result Comment: Canc elled via OM: Order cancelled - Patient discharged Performed By: #### L 100.0100, L500.3400, L500.4050 #### [facility] [address] [place], [address] RDW CV Normal 11.6-14.6 [facility] Comment on above: Result Comment: Canc elled via OM: Order cancelled - Patient discharged Performed By: #### L 100.0100, L500.3400, L500.4050 #### [facility] [address] [place], [address] RDW SD Normal 35.1-43.9 [facility] Comment on above: Result Comment: Canc elled via OM: Order cancelled - Patient discharged Performed By: #### L 100.0100, L500.3400, L500.4050 #### [facility] [address] [place], [address] WBC Normal 4.4-11.0 [facility] Comment on above: Result Comment: Canc elled via OM: Order cancelled - Patient discharged Performed By: #### L 100.0100, L500.3400, L500.4050 #### [facility] [address] [place], [address] Comprehensive Metabolic Prof ilon 09-03-2024 ALB Normal 3.2-5.0 [facility] Comment on above: Result Comment: Canc elled via OM: Order cancelled - Patient discharged Performed By: #### L 100.0100, L500.3400, L500.4050 #### [facility] [address] [place], [address] ALK P Normal 45-117 [facility] Comment on above: Result Comment: Canc elled via OM: Order cancelled - Patient discharged Performed By: #### L 100.0100, L500.3400, L500.4050 #### [facility] [address] [place], [address] ALT Normal 16-61 [facility] Comment on above: Result Comment: Canc elled via OM: Order cancelled - Patient discharged Performed By: #### L 100.0100, L500.3400, L500.4050 #### [facility] [address] [place], [address] AST Normal 15-37 [facility] Comment on above: Result Comment: Canc elled via OM: Order cancelled - Patient discharged Performed By: #### L 100.0100, L500.3400, L500.4050 #### [facility] [address] [place], [address] BUN Normal 7-18 [facility] Comment on above: Result Comment: Canc elled via OM: Order cancelled - Patient discharged Performed By: #### L 100.0100, L500.3400, L500.4050 #### [facility] [address] [place], [address] BUN/CRE Normal 10-20 [facility] Comment on above: Result Comment: Canc elled via OM: Order cancelled - Patient discharged Performed By: #### L 100.0100, L500.3400, L500.4050 #### [facility] [address] [place], [address] CA,Total Normal 8.5-10.1 [facility] Comment on above: Result Comment: Canc elled via OM: Order cancelled - Patient discharged Performed By: #### L 100.0100, L500.3400, L500.4050 #### [facility] [address] [place], [address] CL Normal 98-107 [facility] Comment on above: Result Comment: Canc elled via OM: Order cancelled - Patient discharged Performed By: #### L 100.0100, L500.3400, L500.4050 #### [facility] [address] [place], [address] CO2 Normal 21.0-32.0 [facility] Comment on above: Result Comment: Canc elled via OM: Order cancelled - Patient discharged Performed By: #### L 100.0100, L500.3400, L500.4050 #### [facility] [address] [place], [address] CREAT,SERUM Normal 0.70-1.30 [facility] Comment on above: Result Comment: Canc elled via OM: Order cancelled - Patient discharged Performed By: #### L 100.0100, L500.3400, L500.4050 #### [facility] [address] [place], [address] EST GFR Normal >60 [facility] Comment on above: Result Comment: Canc elled via OM: Order cancelled - Patient discharged Performed By: #### L 100.0100, L500.3400, L500.4050 #### [facility] [address] [place], [address] EST GFR - AA Normal >60 [facility] Comment on above: Result Comment: Canc elled via OM: Order cancelled - Patient discharged Performed By: #### L 100.0100, L500.3400, L500.4050 #### [facility] [address] [place], [address] GAP Normal 5-15 [facility] Comment on above: Result Comment: Canc elled via OM: Order cancelled - Patient discharged Performed By: #### L 100.0100, L500.3400, L500.4050 #### [facility] [address] [place], [address] GLU Normal 74-106 [facility] Comment on above: Result Comment: Canc elled via OM: Order cancelled - Patient discharged Performed By: #### L 100.0100, L500.3400, L500.4050 #### [facility] [address] [place], [address] Potassium Normal 3.5-5.1 [facility] Comment on above: Result Comment: Canc elled via OM: Order cancelled - Patient discharged Performed By: #### L 100.0100, L500.3400, L500.4050 #### [facility] [address] [place], [address] T BILI Normal 0.20-1.00 [facility] Comment on above: Result Comment: Canc elled via OM: Order cancelled - Patient discharged Performed By: #### L 100.0100, L500.3400, L500.4050 #### [facility] [address] [place], [address] T PROT Normal 6.4-8.2 [facility] Comment on above: Result Comment: Canc elled via OM: Order cancelled - Patient discharged Performed By: #### L 100.0100, L500.3400, L500.4050 #### [facility] [address] [place], [address] Comprehensive Metabolic Profil Normal 136-145 [facility] Comment on above: Result Comment: Canc elled via OM: Order cancelled - Patient discharged Performed By: #### L 100.0100, L500.3400, L500.4050 #### [facility] [address] [place], [address] Basic Metabolic Profile (BMP )on 09-02-2024 BUN/CRE 17.4 RATIO Normal 10-20 [facility] Comment on above: Performed By: #### L 100.0100, L500.3400, L500.4050 #### [facility] [address] [place], [address] CA,Total 7.7 mg/dL Low 8.5-10.1 [facility] Comment on above: Performed By: #### L 100.0100, L500.3400, L500.4050 #### [facility] [address] [place], [address] Chloride [Moles/Vol] 108 mmol/L High 98-107 [facility] Comment on above: Performed By: #### L 100.0100, L500.3400, L500.4050 #### [facility] [address] [place], [address] CO2 [Moles/Vol] 27.0 mmol/L Normal 21.0-32.0 [facility] Comment on above: Performed By: #### L 100.0100, L500.3400, L500.4050 #### [facility] [address] [place], [address] Creatinine [Mass/Vol] 1.09 mg/dL Normal 0.70-1.30 [facility] Comment on above: Result Comment: The validity of the calculated GFR GFRAA in patients over 70 years has not been determined. Clinical correlation is essential. Performed By: #### L 100.0100, L500.3400, L500.4050 #### [facility] [address] [place], [address] ECRCL 66.39 ml/min Normal [facility] Comment on above: Performed By: #### L 100.0100, L500.3400, L500.4050 #### [facility] Laboratory [address] [place], [address] EST GFR - AA 101 mL/min Normal >60 [facility] Comment on above: Result Comment: Afri can Romanian GFR Calc Performed By: #### L 100.0100, L500.3400, L500.4050 #### [facility] Laboratory [address] [place], [address] GAP 2 Low 5-15 [facility] Comment on above: Performed By: #### L 100.0100, L500.3400, L500.4050 #### [facility] [address] [place], [address] GFR/1.73 sq M.predicted among non-blacks MDRD (S/P/Bld) [Vol rate/Area] 84 mL/min/{1.73_m2} Normal >60 [facility] Comment on above: Result Comment: Non- GFR Calc Performed By: #### L 100.0100, L500.3400, L500.4050 #### [facility] Laboratory [address] [place], [address] Glucose [Mass/Vol] 102 mg/dL Normal 74-106 [facility] Comment on above: Result Comment: Fast ing Glucose result from 100 to 125 mg/dL suggests IMPAIRED HOMEOSTASIS per A.D.A. criteria. Performed By: #### L 100.0100, L500.3400, L500.4050 #### [facility] Laboratory [address] [place], [address] Potassium [Moles/Vol] 4.7 mmol/L Normal 3.5-5.1 [facility] Comment on above: Performed By: #### L 100.0100, L500.3400, L500.4050 #### [facility] [address] [place], [address] Sodium [Moles/Vol] 137 mmol/L Normal 136-145 [facility] Comment on above: Performed By: #### L 100.0100, L500.3400, L500.4050 #### [facility] [address] [place], [address] Urea nitrogen [Mass/Vol] 19 mg/dL High 7-18 [facility] Comment on above: Performed By: #### L 100.0100, L500.3400, L500.4050 #### [facility] Laboratory [address] [place], [address] Bedside Glucoseon 09-02-2024 FINGERSTICK GLU 161 mg/dL High 74-106 [facility] Comment on above: Result Comment: PO GEMENT OF PATIENT CARE PER NURSING PROTOCOL Performed By: #### L 501.080 #### [facility] Laboratory [address] [place], [address] FINGERSTICK GLU 139 mg/dL High 74-106 [facility] Comment on above: Result Comment: PO GEMENT OF PATIENT CARE PER NURSING PROTOCOL Performed By: #### L 100.0100, L500.3400, L500.4050 #### [facility] Laboratory [address] [place], [address] FINGERSTICK GLU 112 mg/dL High 74-106 [facility] Comment on above: Result Comment: PO GEMENT OF PATIENT CARE PER NURSING PROTOCOL Performed By: #### L 100.0100, L500.3400, L500.4050 #### [facility] Laboratory [address] [place], [address] Discharge Instructionon 10-0 Discharge Instruction [facility] Medical Records Department [address] [place] [address] Instructions for Home/Discharge Instructions 09/02/24 1014 MR#: [id number] Acct: [id number] Name: JAY BARBER Rep #: [id number] : 1995 29 From: Anahi Wilder MD [...] monitor potassium levels Discharge Orders/Prescriptions Prescriptions: Continued tnwuym-orcghrep-fzozo se 1 EACH capsule,delayed release(DR/EC) 2 - [...] mg tablet 25 mg PO BID (DME) PigeonlyTouch Verio test strips Strip 1 strip MISCELLANEOUS [...] Cook DO; No Primary Care Physician Signed [facility] 12 Lead EKGon 09-01-2024 12 Lead EKG [facility] Cardiovascular Services [address] [place] [address] 12 Lead EKG 08/31/24 1349 MR#: [id number] Acct: [id number] Name: JAY BARBER Rep #: [id number] : 1995 29 From: Rosalino Bertrand MD Attending Dr: Dr. Anahi Wilder MD Status: TODD Rapp IN Ordering Dr: Niko Cook DO Date: 09/01/24 Location: [facility] Sex: M C Admitted: 09/01/24 Test Reason : HIGH K Blood Pressure : / mmHG Vent. Rate : 086 BPM Atrial Rate : 086 BPM P-R Int : 168 ms QRS Dur : 084 ms QT Int : 366 ms P-R-T Axes : 079 086 084 degrees QTc Int : 437 ms Normal sinus rhythm Normal ECG Confirmed by CORDELL RUEDA, ROSALINO ([id number]), newspaper editor managing BE FARAH ([id number]) on 09/02/2024 1:20:05 PM Referred By: Confirmed By:ROSALINO BERTRAND MD 09/02/24 1320 Date Rosalino Bertrand MD CC: Dr. Niko Cook DO; Dr. Anahi Wilder MD; No Primary Care Physician Signed [facility] Basic Metabolic Profile (BMP )on 09-01-2024 BUN/CRE 11.1 RATIO Normal 09-19 [facility] Comment on above: Performed By: #### L 100.0100, L500.3400, L500.4050 #### [facility] [address] [facility] [place], [address] CA,Total 8.0 mg/dL Low 8.5-10.1 [facility] Comment on above: Performed By: #### L 100.0100, L500.3400, L500.4050 #### [facility] Laboratory [address] [place], [address] Chloride [Moles/Vol] 110 mmol/L High 98-107 [facility] Comment on above: Performed By: #### L 100.0100, L500.3400, L500.4050 #### [facility] Laboratory [address] [place], [address] CO2 [Moles/Vol] 27.0 mmol/L Normal 21.0-32.0 [facility] Comment on above: Performed By: #### L 100.0100, L500.3400, L500.4050 #### [facility] Laboratory [address] [place], [address] Creatinine [Mass/Vol] 1.08 mg/dL Normal 0.70-1.30 [facility] Comment on above: Result Comment: The validity of the calculated GFR GFRAA in patients over 70 years has not been determined. Clinical correlation is essential. Performed By: #### L 100.0100, L500.3400, L500.4050 #### [facility] Laboratory [address] [place], [address] ECRCL 67.00 ml/min Normal [facility] Comment on above: Performed By: #### L 100.0100, L500.3400, L500.4050 #### [facility] [address] [place], [address] EST GFR - AA 103 mL/min Normal >60 [facility] Comment on above: Result Comment: Afri can Romanian GFR Calc Performed By: #### L 100.0100, L500.3400, L500.4050 #### [facility] Laboratory [address] [place], [address] GAP 1 Low 5-15 [facility] Comment on above: Performed By: #### L 100.0100, L500.3400, L500.4050 #### [facility] Laboratory [address] [place], [address] GFR/1.73 sq M.predicted among non-blacks MDRD (S/P/Bld) [Vol rate/Area] 85 mL/min/{1.73_m2} Normal >60 [facility] Comment on above: Result Comment: Non- GFR Calc Performed By: #### L 100.0100, L500.3400, L500.4050 #### [facility] Laboratory [address] [place], [address] Glucose [Mass/Vol] 209 mg/dL High 74-106 [facility] Comment on above: Result Comment: Gluc ose result greater than or equal to 200 mg/dL suggests DIABETES MELLITUS per A.D.A. criteria. Performed By: #### L 100.0100, L500.3400, L500.4050 #### [facility] Laboratory [address] [place], [address] Potassium [Moles/Vol] 4.9 mmol/L Normal 3.5-5.1 [facility] Comment on above: Performed By: #### L 100.0100, L500.3400, L500.4050 #### [facility] [address] [place], [address] Sodium [Moles/Vol] 138 mmol/L Normal 136-145 [facility] Comment on above: Performed By: #### L 100.0100, L500.3400, L500.4050 #### [facility] [address] [place], [address] Urea nitrogen [Mass/Vol] 12 mg/dL Normal 7-18 [facility] Comment on above: Performed By: #### L 100.0100, L500.3400, L500.4050 #### [facility] [address] [place], [address] BUN/CRE 14.4 RATIO Normal 10-20 [facility] Comment on above: Performed By: #### L 100.0100, L500.3400, L500.4050 #### [facility] [address] [place], [address] CA,Total 7.8 mg/dL Low 8.5-10.1 [facility] Comment on above: Performed By: #### L 100.0100, L500.3400, L500.4050 #### [facility] [address] [place], [address] Chloride [Moles/Vol] 114 mmol/L High 98-107 [facility] Comment on above: Performed By: #### L 100.0100, L500.3400, L500.4050 #### [facility] [address] [place], [address] CO2 [Moles/Vol] 22.0 mmol/L Normal 21.0-32.0 [facility] Comment on above: Performed By: #### L 100.0100, L500.3400, L500.4050 #### [facility] [address] [place], [address] Creatinine [Mass/Vol] 0.84 mg/dL Normal 0.70-1.30 [facility] Comment on above: Result Comment: The validity of the calculated GFR GFRAA in patients over 70 years has not been determined. Clinical correlation is essential. Performed By: #### L 100.0100, L500.3400, L500.4050 #### [facility] [address] [place], [address] ECRCL 86.15 ml/min Normal [facility] Comment on above: Performed By: #### L 100.0100, L500.3400, L500.4050 #### [facility] [address] [place], [address] EST GFR - AA 138 mL/min Normal >60 [facility] Comment on above: Result Comment: Afri can Romanian GFR Calc Performed By: #### L 100.0100, L500.3400, L500.4050 #### [facility] [address] [place], [address] GAP 3 Low 5-15 [facility] Comment on above: Performed By: #### L 100.0100, L500.3400, L500.4050 #### [facility] [address] [place], [address] GFR/1.73 sq M.predicted among non-blacks MDRD (S/P/Bld) [Vol rate/Area] 114 mL/min/{1.73_m2} Normal >60 [facility] Comment on above: Result Comment: Non- GFR Calc Performed By: #### L 100.0100, L500.3400, L500.4050 #### [facility] [address] [place], [address] Glucose [Mass/Vol] 119 mg/dL High 74-106 [facility] Comment on above: Result Comment: Fast ing Glucose result from 100 to 125 mg/dL suggests IMPAIRED HOMEOSTASIS per A.D.A. criteria. Performed By: #### L 100.0100, L500.3400, L500.4050 #### [facility] [address] [place], [address] Potassium [Moles/Vol] 5.4 mmol/L High 3.5-5.1 [facility] Comment on above: Performed By: #### L 100.0100, L500.3400, L500.4050 #### [facility] Laboratory [address] [place], [address] Sodium [Moles/Vol] 138 mmol/L Normal 136-145 [facility] Comment on above: Performed By: #### L 100.0100, L500.3400, L500.4050 #### [facility] [address] [place], [address] Urea nitrogen [Mass/Vol] 12 mg/dL Normal 7-18 [facility] Comment on above: Performed By: #### L 100.0100, L500.3400, L500.4050 #### [facility] Laboratory [address] [place], [address] Bedside Glucoseon 09-01-2024 FINGERSTICK GLU 161 mg/dL High 74-106 [facility] Comment on above: Result Comment: PO GEMENT OF PATIENT CARE PER NURSING PROTOCOL Performed By: #### L 100.0100, L500.3400, L500.4050 #### [facility] Laboratory [address] [place], [address] FINGERSTICK GLU 189 mg/dL High 74-106 [facility] Comment on above: Result Comment: PO GEMENT OF PATIENT CARE PER NURSING PROTOCOL Performed By: #### L 501.080 #### [facility] Laboratory [address] [place], [address] FINGERSTICK GLU 124 mg/dL High 74-106 [facility] Comment on above: Result Comment: PO GEMENT OF PATIENT CARE PER NURSING PROTOCOL Performed By: #### L 501.080 #### [facility] Laboratory [address] [place], [address] FINGERSTICK GLU 128 mg/dL High 74-106 [facility] Comment on above: Result Comment: PO GEMENT OF PATIENT CARE PER NURSING PROTOCOL Performed By: #### L 100.0100, L500.3400, L500.4050 #### [facility] Laboratory [address] [place], [address] CTA Chest W/WO Contraston CTA Chest W/WO Contrast [facility] Imaging Services [address] [place], [place] [address] CTA Chest W/WO Contrast MR#: [id number] Acct: [id number] Name: JAY BARBER Rep #: [id number] : 1995 M 29 From: Hang Tillman MD PCP: Care Physician,No Primary Status: ADM IN Study: CTA Chest W/WO Contrast Date of Exam: 09/01/24 Exam# [id number] Ordering Dr: Anahi Wilder MD [id number] STUDY: CTA CHEST REASON FOR EXAM: Male, [...] Anahi Wilder MD; No Primary Care Physician [employer]: Signed Normal [facility] D-Dimer Quantitative (DVT/PE )on 09-01-2024 D-DIMER QUANT 1.67 FEU/ug/m Invalid Interpretation Code 0.27-0.49 [facility] Comment on above: Result Comment: D-Di arnold ELEVATED (>0.49): Additional studies and clinical assessments are indicated to conclude diagnosis of: Deep Vein Thrombosis (DVT) or Pulmonary Embolism (PE) CRITICAL VALUE CALLED TO EDWARDO MORENO 09/01/24 1719 Andreia Zelaya. RESULTS READ BACK BY SAME. Performed By: #### L 100.0100, L500.3400, L500.4050 #### [facility] Laboratory [address] [facility] [place], [address] 12 Lead EKGon 08-31-2024 12 Lead EKG [facility] Cardiovascular Services [address] [place] [address] 12 Lead EKG 09/01/24 0542 MR#: [id number] Acct: [id number] Name: JAY BARBER Rep #: [id number] : 1995 29 From: Rosalino Bertrand MD [...] IS UNCONFIRMED Confirmed by ROSALINO BERTRAND MD ([id number]), newspaper editor managing BE FARAH ([id number]) on 09/02/2024 1:13:35 PM Referred By: Confirmed By:ROSALINO BERTRAND MD 09/02/24 1313 Date Rosalino Bertrand MD CC: Dr. Anahi Wilder MD; Dr. Brady Bal DO; No Primary Care Physician Signed Normal [facility] 12 Lead EKG [facility] Cardiovascular Services [address] [place] [address] 12 Lead EKG 08/31/24 1731 MR#: [id number] Acct: [id number] Name: JAY BARBER Rep #: [id number] : 1995 29 From: Rosalino Bertrand MD Attending Dr: Dr. Anahi Wilder MD Status: DI S IN Ordering Dr: Brady Bal DO Date: 08/31/24 Location: [facility] Sex: M C Admitted: 09/01/24 Test Reason : MED CHANGE/REPEAT Blood Pressure : / mmHG Vent. Rate : 082 BPM Atrial Rate : 082 BPM P-R Int : 172 ms QRS Dur : 086 ms QT Int : 364 ms P-R-T Axes : 070 080 075 degrees QTc Int : 425 ms Normal sinus rhythm Normal ECG Confirmed by ROSALINO BERTRAND MD ([id number]), newspaper editor managing BE FARAH ([id number]) on 09/02/2024 1:19:50 PM Referred By: Confirmed By:ROSALINO BERTRAND MD 09/02/24 131 Date Rosalino Bertrand MD CC: Dr. Anahi Wilder MD; Dr. Brady Bal DO; No Primary Care Physician Signed Normal [facility] Basic Metabolic Profile (BMP )on 08-31-2024 BUN/CRE 12.6 RATIO Normal 10-20 [facility] Comment on above: Performed By: #### L 100.0100, L500.3400, L500.4050 #### [facility] Laboratory [address] [place], [address] CA,Total 8.7 mg/dL Normal 8.5-10.1 [facility] Comment on above: Performed By: #### L 100.0100, L500.3400, L500.4050 #### [facility] Laboratory [address] [place], [address] Chloride [Moles/Vol] 113 mmol/L High 98-107 [facility] Comment on above: Performed By: #### L 100.0100, L500.3400, L500.4050 #### [facility] Laboratory [address] [place], [address] CO2 [Moles/Vol] 20.0 mmol/L Low 21.0-32.0 [facility] Comment on above: Performed By: #### L 100.0100, L500.3400, L500.4050 #### [facility] Laboratory [address] [place], [address] Creatinine [Mass/Vol] 0.95 mg/dL Normal 0.70-1.30 [facility] Comment on above: Result Comment: The validity of the calculated GFR GFRAA in patients over 70 years has not been determined. Clinical correlation is essential. Performed By: #### L 100.0100, L500.3400, L500.4050 #### [facility] Laboratory [address] [place], [address] ECRCL 65.34 ml/min Normal [facility] Comment on above: Performed By: #### L 100.0100, L500.3400, L500.4050 #### [facility] [address] [place], [address] EST GFR - AA 119 mL/min Normal >60 [facility] Comment on above: Result Comment: Afri can Romanian GFR Calc Performed By: #### L 100.0100, L500.3400, L500.4050 #### [facility] Laboratory [address] [place], [address] GAP 1 Low 5-15 [facility] Comment on above: Performed By: #### L 100.0100, L500.3400, L500.4050 #### [facility] Laboratory [address] [place], [address] GFR/1.73 sq M.predicted among non-blacks MDRD (S/P/Bld) [Vol rate/Area] 98 mL/min/{1.73_m2} Normal >60 [facility] Comment on above: Result Comment: Non- GFR Calc Performed By: #### L 100.0100, L500.3400, L500.4050 #### [facility] Laboratory [address] [place], [address] Glucose [Mass/Vol] 269 mg/dL High 74-106 [facility] Comment on above: Result Comment: Gluc ose result greater than or equal to 200 mg/dL suggests DIABETES MELLITUS per A.D.A. criteria. Performed By: #### L 100.0100, L500.3400, L500.4050 #### [facility] Laboratory [address] [place], [address] Potassium [Moles/Vol] 5.4 mmol/L High 3.5-5.1 [facility] Comment on above: Performed By: #### L 100.0100, L500.3400, L500.4050 #### [facility] [address] [place], [address] Sodium [Moles/Vol] 134 mmol/L Low 136-145 [facility] Comment on above: Performed By: #### L 100.0100, L500.3400, L500.4050 #### [facility] [address] [place], [address] Urea nitrogen [Mass/Vol] 12 mg/dL Normal 7-18 [facility] Comment on above: Performed By: #### L 100.0100, L500.3400, L500.4050 #### [facility] Laboratory [address] [place], [address] Bedside Glucoseon 08-31-2024 FINGERSTICK GLU 176 mg/dL High 74-106 [facility] Comment on above: Result Comment: PO MARIJA OF PATIENT CARE PER NURSING PROTOCOL Performed By: #### L 100.0100, L500.3400, L500.4050 #### [facility] [address] [place], [address] FINGERSTICK GLU 25 mg/dL Invalid Interpretation Code 74-106 [facility] Comment on above: Result Comment: Dr Avelina helms Followed MANAGEMENT OF PATIENT CARE PER NURSING PROTOCOL Performed By: #### L 501.080 #### [facility] Laboratory [address] [place], [address] CBC W/Diff, Automatedon 10-0 Absolute Lymph 1.45 X10 3/uL Normal 0.83-4.51 [facility] Comment on above: Performed By: #### L 100.0100, L500.3400, L500.4050 #### [facility] Laboratory [address] [place], [address] Absolute Neut 4.0 X10 3/uL Normal 2.0-7.7 [facility] Comment on above: Performed By: #### L 100.0100, L500.3400, L500.4050 #### [facility] Laboratory [address] [place], [address] Basophils/100 WBC (Bld) 1.5 % High 0-1 [facility] Comment on above: Performed By: #### L 100.0100, L500.3400, L500.4050 #### [facility] Laboratory [address] [place], [address] Eosinophils/100 WBC (Bld) 7.1 % High 0-5 [facility] Comment on above: Performed By: #### L 100.0100, L500.3400, L500.4050 #### [facility] Laboratory [address] [place], [address] Erythrocyte distribution width (RBC) [Ratio] 18.3 % High 11.6-14.6 [facility] Comment on above: Performed By: #### L 100.0100, L500.3400, L500.4050 #### [facility] Laboratory [address] [place], [address] Hematocrit (Bld) [Volume fraction] 28.7 % Low 40-54 [facility] Comment on above: Performed By: #### L 100.0100, L500.3400, L500.4050 #### [facility] Laboratory [address] [place], [address] Hemoglobin (Bld) [Mass/Vol] 9.1 g/dL Low 13.0-16.5 [facility] Comment on above: Performed By: #### L 100.0100, L500.3400, L500.4050 #### [facility] Laboratory [address] [place], [address] IG% 0.300 Normal 0.0-0.9 [facility] Comment on above: Result Comment: IG% - Immature Granulocytes (promyelocytes, myelocytes and metamyelocytes) > 1% indicates that a LEFT SHIFT is Present. Performed By: #### L 100.0100, L500.3400, L500.4050 #### [facility] Laboratory [address] [place], [address] Lymphocytes/100 WBC (Bld) 21.9 % Normal 19-41 [facility] Comment on above: Performed By: #### L 100.0100, L500.3400, L500.4050 #### [facility] Laboratory [address] [place], [address] MCH (RBC) [Entitic mass] 29.4 pg Normal 27.0-32.0 [facility] Comment on above: Performed By: #### L 100.0100, L500.3400, L500.4050 #### [facility] Laboratory [address] [place], [address] MCHC (RBC) [Mass/Vol] 31.7 g/dL Low 32-36 [facility] Comment on above: Performed By: #### L 100.0100, L500.3400, L500.4050 #### [facility] Laboratory [address] [place], [address] MCV (RBC) [Entitic vol] 92.9 fL Normal 80-94 [facility] Comment on above: Performed By: #### L 100.0100, L500.3400, L500.4050 #### [facility] [address] [place], [address] Monocytes/100 WBC (Bld) 9.4 % Normal 0-10 [facility] Comment on above: Performed By: #### L 100.0100, L500.3400, L500.4050 #### [facility] [address] [place], [address] Neutrophils/100 WBC (Bld) 59.8 % Normal 47-70 [facility] Comment on above: Performed By: #### L 100.0100, L500.3400, L500.4050 #### [facility] [address] [place], [address] Nucleated RBC (Bld) [#/Vol] 0 10*3/uL Normal 0-5 [facility] Comment on above: Performed By: #### L 100.0100, L500.3400, L500.4050 #### [facility] [address] [place], [address] Platelet mean volume (Bld) [Entitic vol] 9.2 fL Normal 6.2-12.0 [facility] Comment on above: Performed By: #### L 100.0100, L500.3400, L500.4050 #### [facility] Laboratory [address] [place], [address] Platelets (Bld) [#/Vol] 226 10*3/uL Normal 150-450 [facility] Comment on above: Performed By: #### L 100.0100, L500.3400, L500.4050 #### [facility] [address] [place], [address] RBC (Bld) [#/Vol] 3.09 10*6/uL Low 4.6-6.2 [facility] Comment on above: Performed By: #### L 100.0100, L500.3400, L500.4050 #### [facility] [address] [place], [address] RDW SD 62.3 fl High 35.1-43.9 [facility] Comment on above: Performed By: #### L 100.0100, L500.3400, L500.4050 #### [facility] [address] [place], [address] WBC (Bld) [#/Vol] 6.6 10*3/uL Normal 4.4-11.0 [facility] Comment on above: Performed By: #### L 100.0100, L500.3400, L500.4050 #### [facility] [address] [place], [address] Comprehensive Metabolic Prof ilon 08-31-2024 Albumin/Globulin [Mass ratio] 0.3 {ratio} Low 0.9-2.4 [facility] Comment on above: Performed By: #### L 100.0100, L500.3400, L500.4050 #### [facility] [address] [place], [address] BUN/CRE 12.6 RATIO Normal 10-20 [facility] Comment on above: Performed By: #### L 100.0100, L500.3400, L500.4050 #### [facility] [address] [place], [address] CA,Total 7.9 mg/dL Low 8.5-10.1 [facility] Comment on above: Performed By: #### L 100.0100, L500.3400, L500.4050 #### [facility] [address] [place], [address] Chloride [Moles/Vol] 115 mmol/L High 98-107 [facility] Comment on above: Performed By: #### L 100.0100, L500.3400, L500.4050 #### [facility] [address] [place], [address] CO2 [Moles/Vol] 24.0 mmol/L Normal 21.0-32.0 [facility] Comment on above: Performed By: #### L 100.0100, L500.3400, L500.4050 #### [facility] [address] [place], [address] Creatinine [Mass/Vol] 1.03 mg/dL Normal 0.70-1.30 [facility] Comment on above: Result Comment: The validity of the calculated GFR GFRAA in patients over 70 years has not been determined. Clinical correlation is essential. Performed By: #### L 100.0100, L500.3400, L500.4050 #### [facility] [address] [place], [address] ECRCL 60.27 ml/min Normal [facility] Comment on above: Performed By: #### L 100.0100, L500.3400, L500.4050 #### [facility] [address] [place], [address] EST GFR - AA 108 mL/min Normal >60 [facility] Comment on above: Result Comment: Afri can Romanian GFR Calc Performed By: #### L 100.0100, L500.3400, L500.4050 #### [facility] [address] [place], [address] GAP 0 Low 5-15 [facility] Comment on above: Performed By: #### L 100.0100, L500.3400, L500.4050 #### [facility] [address] [place], [address] GFR/1.73 sq M.predicted among non-blacks MDRD (S/P/Bld) [Vol rate/Area] 90 mL/min/{1.73_m2} Normal >60 [facility] Comment on above: Result Comment: Non- GFR Calc Performed By: #### L 100.0100, L500.3400, L500.4050 #### [facility] [address] [place], [address] Glucose [Mass/Vol] 151 mg/dL High 74-106 [facility] Comment on above: Result Comment: Fast ing Glucose result greater than or equal to 126 mg/dL suggests DIABETES MELLITUS per A.D.A. criteria. Performed By: #### L 100.0100, L500.3400, L500.4050 #### [facility] [address] [place], [address] Potassium [Moles/Vol] 5.7 mmol/L High 3.5-5.1 [facility] Comment on above: Performed By: #### L 100.0100, L500.3400, L500.4050 #### [facility] [address] [place], [address] Sodium [Moles/Vol] 139 mmol/L Normal 136-145 [facility] Comment on above: Performed By: #### L 100.0100, L500.3400, L500.4050 #### [facility] [address] [place], [address] Urea nitrogen [Mass/Vol] 13 mg/dL Normal 7-18 [facility] Comment on above: Performed By: #### L 100.0100, L500.3400, L500.4050 #### [facility] [address] [place], [address] Emergency Department Summary on 08-31-2024 Emergency Department Summary [facility] Medical Records Department [address] [place] [address] Emergency Department Summary 08/31/24 MR#: [id number] Acct: [id number] Name: JAY BARBER Rep #: [id number] : 1995 29 From: Brady Bal DO [...] Patient states that he follows with the [facility] for his cystic fibrosis. Patient notes that he has been a little bit more tired than normal today but denies any other symptoms. [facility] Medical History (Updated 10/01/24 @ 19:[address] Brady Bal, DO) Cystic fibrosis Home Medications ???Medication ???Instructions ???Recorded ???Last Taken ???Type elexacaftor 100 mg-tezacaf 2 ea PO DAILY CF 11/14/19 07/04/20 History 50mg-ivacaf 75mg(d)/ivacaf 150mg(n) tablets velprr-ptlnmggb-optkp se 2 - 3 cap PO TIDCM [...] Unknown History Verio test strips) blood-glucose sensor ([employer] G7 08/31/24 Unknown History Sensor device) carvedilol [...] following commands knew that he was at [facility] year is 2023 Skin: Warm, dry, intact Const Vital Signs: 08/31/24 13:44 08/31/24 14:05 08/31/24 14:15 Temperature 98.9 F Temperature Source Oral Pulse Rate 84 84 Respiratory Rate 18 18 Respiratory Effort Normal No (more content not included)... Normal [facility] H AND P Exam - Hospitaliston 08-31-2024 H&P Exam - Hospitalist [facility] Medical Records Department [address] [place] [address] H P Exam - Hospitalist 08/31/241946 MR#: [id number] Acct: [id number] Name: ELISABETHJAY EDWIN Rep #: [id number] : 1995 29 From: Niko Cook DO PCP: Care Physician,No Primary Status:ADM JAMARCUS Location: [place] [address] HPI - General General Date of Admission: 08/31/24 Date of Service: 08/31/24 Chief Complaint: Hyperkalemia HPI Narrative JAY BARBER, is a 29 M who presented to [facility] ED on 08/31/2024 for hyperkalemia. Patient [...] be admitted for further management. [facility] Medical History (Updated 08/31/24 @ 19:[address] Brady Bal, DO) Cystic fibrosis Home Medications ???Medication ???Instructions ???Recorded ???Last Taken ???Type elexacaftor 100 mg-tezacaf 2 ea PO DAILY CF 11/14/19 07/04/20 History 50mg-ivacaf 75mg(d)/ivacaf 150mg(n) tablets jzjexl-oaolppxo-qeqrk se 2 - 3 cap PO TIDCM [...] Unknown History Verio test strips) blood-glucose sensor ([employer] G7 08/31/24 Unknown History Sensor device) carvedilol [...] Respiratory Effo (more content not included)... Normal [facility] Liver Profileon 08-31-2024 Albumin [Mass/Vol] 1.5 g/dL Low 3.2-5.0 [facility] Comment on above: Performed By: #### L 100.0100, L500.3400, L500.4050 #### [facility] [address] [place], [address] ALK P 819 U/L High 45-117 [facility] Comment on above: Performed By: #### L 100.0100, L500.3400, L500.4050 #### [facility] [address] [place], [address] ALT [Catalytic activity/Vol] 29 U/L Normal 16-61 [facility] Comment on above: Performed By: #### L 100.0100, L500.3400, L500.4050 #### [facility] [address] [place], [address] AST [Catalytic activity/Vol] 50 U/L High 15-37 [facility] Comment on above: Performed By: #### L 100.0100, L500.3400, L500.4050 #### [facility] [address] [place], [address] Bilirubin [Mass/Vol] 0.30 mg/dL Normal 0.20-1.00 [facility] Comment on above: Result Comment: For patients on eltrombopag therapy, use of Dimension [place] TBIL is not recommended. Performed By: #### L 100.0100, L500.3400, L500.4050 #### [facility] [address] [place], [address] Bilirubin.direct [Mass/Vol] 0.17 mg/dL Normal 0.00-0.30 [facility] Comment on above: Performed By: #### L 100.0100, L500.3400, L500.4050 #### [facility] [address] [place], [address] Globulin (S) [Mass/Vol] 5.5 g/dL High 2.2-4.2 [facility] Comment on above: Performed By: #### L 100.0100, L500.3400, L500.4050 #### [facility] [address] [place], [address] T PROT 7.0 g/dL Normal 6.4-8.2 [facility] Comment on above: Performed By: #### L 100.0100, L500.3400, L500.4050 #### [facility] [address] [place], [address] Vancomycin, Random Levelon 1 VANCO, RANDOM 18.8 ug/mL High 0.0-15.0 [facility] Comment on above: Result Comment: VANC OMYCIN STANDARD DRUG THERAPY: CRITICAL VALUE IS > 15.0 mg/L VANCOMYCIN HIGH INTENSITY THERAPY: CRITICAL VALUE IS > 20.0 mg/L PLEASE CONTACT PHARMACY SERVICES (#[id number]) FOR INTERPRETATION OF RESULTS. THIS RESULT DOES NOT REPRESENT A PEAK OR TROUGH LEVEL FOR THIS DRUG. Performed By: #### L 100.0100, L500.3400, L500.4050 #### [facility] [address] [place], [address] CNOVon 08-19-2024 CNOV Office Visit ([facility] ) ELISABETHJAY ([id number]) 1995 M Date Time Provider Department 08/19/24 [...] PLACEMENT: Sterile PRIMARY PROCEDURALIST: Orquidea Ochoa RN AIRWAYS CONTROL SPECIALIST: Daniel Barone RN PRE-PROCEDURE REVIEW ALLERGIES Allergen [...] applicable. Daniel Barone RN CATHETER PLACEMENT Brand: [employer] Lot: [id number] Number of Lumens: 1 Type of PICC: Power Injectable PICC Lumen Size: 4 Portuguese PLACEMENT TECHNIQUE Lidocaine: Yes, Lidocaine 1% Volume [...] location system (more content not included)... Normal [facility] Comprehensive metabolic 2000 panelon 08-19-2024 Albumin [Mass/Vol] 2.7 g/dL Low 3.9 - 4.9 g/dL [facility] ALP [Catalytic activity/Vol] 1043 U/L High 38 - 113 U/L [facility] ALT [Catalytic activity/Vol] 25 U/L 10 - 54 U/L [facility] Anion gap [Moles/Vol] 9 mmol/L 8 - 15 mmol/L [facility] AST [Catalytic activity/Vol] 33 U/L 14 - 40 U/L [facility] Bilirubin [Mass/Vol] 0.6 mg/dL 0.2 - 1 .3 mg/dL [facility] Calcium [Mass/Vol] 8.6 mg/dL 8.5 - 10. 2 mg/dL [facility] Chloride [Moles/Vol] 98 mmol/L 98 - 10 7 mmol/L [facility] CO2 [Moles/Vol] 21 mmol/L Low 22 - 30 mmol/L [facility] Creatinine [Mass/Vol] 1.69 mg/dL High 0.73 - 1.22 mg/dL [facility] GFR/1.73 sq M.predicted among non-blacks MDRD (S/P/Bld) [Vol rate/Area] 55 mL/min/{1.73_m2} Low - PINF [facility] Comment on above: Estimated Glomerular Filtration Rate [...] 126 mg/dL High 74 - 99 mg/dL [facility] Comment on above: The [place] Diabete s Association (ADA) provides guidance for [...] Standards of Medical Care in Diabetes 2016, [place] Diabetes Association. Diabetes Care. 2016.39(Suppl 1). Interpretation and review of laboratory results Abnormal [facility] Potassium [Moles/Vol] 4.9 mmol/L 3.7 - 5.1 mmol/L [facility] Protein [Mass/Vol] 8.6 g/dL High 6.3 - 8.0 g/dL [facility] Sodium [Moles/Vol] 128 mmol/L Low 136 - 144 mmol/L [facility] Urea nitrogen [Mass/Vol] 26 mg/dL High 9 - 24 mg/dL [facility] MAGNESIUMon 08-19-2024 Magnesium [Mass/Vol] 1.9 mg/dL 1.7 - 2 .3 mg/dL [facility] Magnesium [Mass/Vol]on 08-19 Interpretation and review of laboratory results Normal [facility] No Panel Informationon 08-19 Daniel Barone RN 08/19/2024 8:22 AM PICC NURSE INSERTION NOTE DATE OF PROCEDURE: August 19, 2024 TIME OF PROCEDURE: 0750 ORDERING PHYSICIAN: Dunia INFORMED CONSENT: Obtained per hospital policy. INDICATION FOR LINE PLACEMENT: IV access COPAT CONDITION OF LINE PLACEMENT: Sterile PRIMARY PROCEDURALIST: Orquidea Ochoa RN AIRWAYS CONTROL SPECIALIST: Daniel Barone RN PRE-PROCEDURE REVIEW ALLERGIES Allergen [...] applicable. Daniel Barone RN CATHETER PLACEMENT Brand: [employer] Lot: [id number] Number of Lumens: 1 Type of PICC: Power Injectable PICC Lumen Size: 4 Portuguese PLACEMENT TECHNIQUE Lidocaine: Yes, Lidocaine 1% Volume [...] Given to patient QUESTIONS or PROBLEMS: Call [phone] SIGNATURE: Daniel Barone RN PATIENT NAME: Jay Barber DATE: August 19, 2024 TIME: 8:08 AM PAGER/CONTACT PHONE: [facility] Radiology Study observation (narrative) [facility] CBC W Auto Differential pane l (Bld)on 08-18-2024 Basophils (Bld) [#/Vol] 0.11 10*3/uL High [facility] Basophils/100 WBC (Bld) 1.0 % [facility] Differential cell count method Nom (Bld) Auto [facility] Eosinophils (Bld) [#/Vol] 0.68 10*3/uL High [facility] Eosinophils/100 WBC (Bld) 6.0 % [facility] Erythrocyte distribution width (RBC) [Ratio] 17.9 % High 11.5 - 15.0 % [facility] Hematocrit (Bld) [Volume fraction] 35.3 % Low 39.0 - 51.0 % [facility] Hemoglobin (Bld) [Mass/Vol] 11.3 g/dL Low 13.0 - 17.0 g/dL [facility] Immature granulocytes (Bld) [#/Vol] 0.07 10*3/uL [facility] Immature granulocytes/100 WBC (Bld) 0.6 % [facility] Interpretation and review of laboratory results Abnormal [facility] Lymphocytes (Bld) [#/Vol] 1.90 10*3/uL [facility] Lymphocytes/100 WBC (Bld) 16.7 % [facility] MCH (RBC) [Entitic mass] 29.0 pg 26.0 - 34.0 pg [facility] MCHC (RBC) [Mass/Vol] 32.0 g/dL 30.5 - 36.0 g/dL [facility] MCV (RBC) [Entitic vol] 90.7 fL 80.0 - 100.0 fL [facility] Monocytes (Bld) [#/Vol] 0.90 10*3/uL High NINF [facility] Monocytes/100 WBC (Bld) 7.9 % [facility] Neutrophils (Bld) [#/Vol] 7.71 10*3/uL High [facility] Neutrophils/100 WBC (Bld) 67.8 % [facility] Nucleated RBC (Bld) [#/Vol] NINF [facility] Nucleated RBC/100 WBC (Bld) [Ratio] 0.0 % /100 WBC [facility] Platelet mean volume (Bld) [Entitic vol] 10.1 fL 9.0 - 12.7 fL [facility] Platelets (Bld) [#/Vol] 274 10*3/uL [facility] RBC (Bld) [#/Vol] 3.89 10*6/uL Low 4.20 - 6.0 0 m/uL [facility] WBC (Bld) [#/Vol] 11.37 10*3/uL High [facility] VANCOMYCINon 08-18-2024 Vancomycin random [Mass/Vol] ug/mL Low 10.0 - 20.0 ug/mL [facility] Comment on above: Reference ranges and high/low indicator flags are provided as general guidelines only. The treating physician must determine appropriate target levels/dosing based on the specific clinical situation. Result rechecked. Vancomycin random [Mass/Vol] on 08-18-2024 Interpretation and review of laboratory results Abnormal [facility] CNOVon 07-06-2024 CNOV Office Visit ([facility] ) JAY BARBER ([id number]) 1995 M Date Time Provider Department 07/06/24 2:00 PM STEPHIE RAMIREZ During your visit today, we recorded the following information about you: Blood pressure Weight Height 156/92 42.4 kg 1.575 m Stephie Ramirez APRN.ACID CLEANER 07/07/2024 1:14 PM Signed Subjective Date of [...] appointment with nephrology, 07/2023: prot/creat ratio in [facility] Lipid Profile:10/2013: TC 111, HDL 42, LDL [...] results in care everywhere, 12/2019: results in [facility] everywhere, 01/2020: labs in [facility], 07/2020; Alkaline Phosphatase 725 (45-117), ALT 77 (16-61), AST 163 (15-37), 12/2020: results in care everywhere., 03/2021: results In care everywhere, 12/2021: Alkaline Phosphatase 918 (38-113), bone percent 13.9%, liver percent 86.1 , 12/2022: liver function monitored by CF providers, 03/2023: in [facility], 08/2023: LFTS in [facility], 10/2023: LFTS in [facility], 03/2024: liver test in [facility] Dilated Eye Exam: Patient educated to have ophthalmology visits at least once a year. 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 08/2013: New patient visit for Cystic Fibrosis related Diabetes [facility] prior to today's office visit. [...] missed dosages (more content not included)... Normal [facility] HEMOGLOBIN A1C (POC)on 07-06 HbA1c (Bld) [Mass fraction] 6.2 % Abnormal 4.3 - 5.6 % [facility] Comment on above: Location:[facility], [address], [facility] Point of care (POC) Hemoglobin A1c (HGBA1C) [...] specific diabetes management situations: The POC device lacquer sizer provides a normal range of 4.2% to 6.5% for the HGBA1C POC test. However, the [place] Diabetes Association guidelines indicate that patients with [...] Interpretation and review of laboratory results Abnormal [facility] Bacteria identified Cystic f ibrosis respiratory culture Nom (Sput)Ordered By: Manju Beaulieu on 05-12-2024 Interpretation and review of laboratory results Abnormal [facility] No Staphylococcus aureus isolated. No Pseudomonas aeruginosa isolated. This test was developed and its performance characteristics determined by the [facility]'s [facility] [place] ([facility]). It has not been cleared or approved by the FDA. [facility] is regulated under CLIA as qualified to perform high-complexity testing. This test is used for clinical purposes. It should not be regarded as investigational or for research. [facility] CYSTIC FIBROSIS RESPIRATORY CULTUREOrdered By: Manju Beaulieu on 05-12-2024 Bacteria identified Cystic fibrosis respiratory culture Nom (Sput) Rare Burkholderia cepacia complex Abnormal [facility] Bacteria identified Cystic fibrosis respiratory culture Nom (Sput) Many normal respiratory vicky Abnormal [facility] Bacteria identified Cystic fibrosis respiratory culture Nom (Sput) Rare Sphingobacterium multivorum Abnormal [facility] MR Biliary ducts and Pancrea tic duct WO and W contrast Ramu 05-07-2024 IMPRESSION: Multifocal segmental discontinuous bile duct dilation as described, most prominent in hepatic segment II, concerning for PBC or PSC. Cirrhotic liver with portal hypertension including multiple varices and mild splenomegaly but only trace ascites. No focal hepatic mass. Pancreatic changes consistent with sequela of cystic fibrosis. [employer] Rater: KATHIE Transcribe Date/Time: May 07 2024 3:02P Dictated by : KELLY KOROMA MD This examination was interpreted and the report reviewed and electronically signed by: KELLY KOROMA MD on May 07 2024 3:14PM [facility] DIVISION OF RADIOLOGY * * *Final Report* * * DATE OF EXAM: May 07 2024 2:15PM [facility] 0730 - MRI PANC/MARYAM WO/W IVCON [...] additional findings. DIVISION OF RADIOLOGY Provider, [facility] - 05/07/2024 * * *Final Report* * * DATE OF EXAM: May 07 2024 2:15PM [facility] 0730 - MRI PANC/MARYAM WO/W IVCON [...] changes consistent with sequela of cystic fibrosis. [employer] R[employer]: PSCB Transcribe Date/Time: May 07 2024 3:02P Dictated by : KELLY KOROMA MD This examination was interpreted and the report reviewed and electronically signed by: KELLY KOROMA MD on May 07 2024 3:14PM EST [facility] Radiology Study observation (narrative) [facility] MR Biliary ducts and Pancrea tic duct WO and W contrast IVOrdered By: [facility]cf Provider on 05-07-2024 [facility] CNOVon 03-09-2024 CNOV Office Visit ([facility] ) JAY BARBER ([id number]) 1995 M Date Time Provider Department 03/09/24 2:00 PM STEPHIE RAMIREZ ENAG During your visit today, we recorded the following information about you: Blood pressure Weight Height 128/76 41 kg 1.575 m Stephie Ramirez, ADALI.ACID CLEANER 03/09/2024 4:10 PM Signed Subjective Date of [...] results in care everywhere, 01/2020: labs in [facility], 07/2020; Alkaline Phosphatase 725 (45-117), ALT 77 (16-61), AST 163 (15-37), 12/2020: results in care everywhere., 03/2021: results In care everywhere, 12/2021: Alkaline Phosphatase 918 (38-113), bone percent 13.9%, liver percent 86.1 , 12/2022: liver function monitored by CF providers, 03/2023: in [facility], 08/2023: LFTS in [facility], 10/2023: LFTS in [facility], 03/2024: liver test in [facility] Dilated Eye Exam: Patient educated to have ophthalmology visits at least once a year. 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 08/2013: New patient visit for Cystic Fibrosis related Diabetes [facility] reviewed prior to today's office visit. [...] patient due (more content not included)... Normal [facility] HEMOGLOBIN A1C (POC)on 03-09 HbA1c (Bld) [Mass fraction] 6.1 % Abnormal 4.3 - 5.6 % [facility] Absolute lymphocyte counton 02-24-2024 Lymphocytes Auto (Unsp spec) [#/Vol] 1.13 10*3/uL 0.83-4.51 [facility] Automated blood hematocrit ( percentage)on 02-24-2024 Hematocrit (Bld) [Volume fraction] 23.1 % 40-54 [facility] Automated lymphocyte count a s percentage of total leukocyteson 02-24-2024 Lymphocytes/100 WBC Auto (Unsp spec) 28.0 % 19-41 [facility] Basic Metabolic Profile (BMP )on 02-24-2024 BUN/CRE 25.0 RATIO High 10-20 [facility] Comment on above: Performed By: #### L 100.0100, L500.3400, L500.4050 #### [facility] [address] [place], [address] CA,Total 8.3 mg/dL Low 8.5-10.1 [facility] Comment on above: Performed By: #### L 100.0100, L500.3400, L500.4050 #### [facility] [address] [place], [address] Chloride [Moles/Vol] 102 mmol/L Normal 98-107 [facility] Comment on above: Performed By: #### L 100.0100, L500.3400, L500.4050 #### [facility] [address] [place], [address] CO2 [Moles/Vol] 27.0 mmol/L Normal 21.0-32.0 [facility] Comment on above: Performed By: #### L 100.0100, L500.3400, L500.4050 #### [facility] [address] [place], [address] Creatinine [Mass/Vol] 1.60 mg/dL High 0.70-1.30 [facility] Comment on above: Result Comment: The validity of the calculated GFR GFRAA in patients over 70 years has not been determined. Clinical correlation is essential. Performed By: #### L 100.0100, L500.3400, L500.4050 #### [facility] [address] [place], [address] EST GFR - AA 65 mL/min Normal >60 [facility] Comment on above: Result Comment: Afri can Romanian GFR Calc Performed By: #### L 100.0100, L500.3400, L500.4050 #### [facility] [address] [place], [address] GAP 4 Low 5-15 [facility] Comment on above: Performed By: #### L 100.0100, L500.3400, L500.4050 #### [facility] [address] [place], [address] GFR/1.73 sq M.predicted among non-blacks MDRD (S/P/Bld) [Vol rate/Area] 54 mL/min/{1.73_m2} Low >60 [facility] Comment on above: Result Comment: Non- GFR Calc Performed By: #### L 100.0100, L500.3400, L500.4050 #### [facility] [address] [place], [address] Glucose [Mass/Vol] 354 mg/dL High 74-106 [facility] Comment on above: Result Comment: Gluc ose result greater than or equal to 200 mg/dL suggests DIABETES MELLITUS per A.D.A. criteria. Performed By: #### L 100.0100, L500.3400, L500.4050 #### [facility] [address] [place], [address] Potassium [Moles/Vol] 4.9 mmol/L Normal 3.5-5.1 [facility] Comment on above: Performed By: #### L 100.0100, L500.3400, L500.4050 #### [facility] [address] [place], [address] Sodium [Moles/Vol] 133 mmol/L Low 136-145 [facility] Comment on above: Performed By: #### L 100.0100, L500.3400, L500.4050 #### [facility] [address] [place], [address] Urea nitrogen [Mass/Vol] 40 mg/dL High 7-18 [facility] Comment on above: Performed By: #### L 100.0100, L500.3400, L500.4050 #### [facility] [address] [place], [address] Basophil percentageon 2023 Basophils/100 WBC (Bld) 1.2 % 0-1 [facility] Bilirubin [Mass/Vol] 0.70 mg/dL 0.20-1.00 [facility] Comment on above: For patients on eltr ombopag therapy, use of Dimension [place] TBIL is not recommended. Chloride [Moles/Vol] 102 mmol/L 98-107 [facility] Eosinophils/100 WBC (Bld) 12.1 % 0-5 [facility] Glucose [Mass/Vol] 354 mg/dL 74-106 [facility] Comment on above: Glucose result great er than or equal to 200 mg/dLsuggests DIABETES MELLITUS per A.D.A. criteria. Hemoglobin (Bld) [Mass/Vol] 7.5 g/dL 13.0-16.5 [facility] Monocytes/100 WBC (Bld) 13.1 % 0-10 [facility] Neutrophils (Bld) [#/Vol] 1.8 10*3/uL 2.0-7.7 [facility] Neutrophils/100 WBC (Bld) 45.4 % 47-70 [facility] Potassium [Moles/Vol] 4.9 mmol/L 3.5-5.1 [facility] Protein [Mass/Vol] 8.2 g/dL 6.4-8.2 [facility] Sodium [Moles/Vol] 133 mmol/L 136-145 [facility] WBC (Bld) [#/Vol] 4.0 10*3/uL 4.4-11.0 [facility] CBC W Auto Differential pane l (Bld)on 02-24-2024 Abs Neut (ANC) 1.8 K/uL Abnormal 2 - 7.7 K/uL [facility] CBC W/Diff, Automatedon 01-30 Absolute Lymph 1.13 X10 3/uL Normal 0.83-4.51 [facility] Comment on above: Performed By: #### L 100.0100, L500.3400, L500.4050 #### [facility] [address] [place], [address] Absolute Neut 1.8 X10 3/uL Low 2.0-7.7 [facility] Comment on above: Performed By: #### L 100.0100, L500.3400, L500.4050 #### [facility] [address] [place], [address] Basophils/100 WBC (Bld) 1.2 % High 0-1 [facility] Comment on above: Performed By: #### L 100.0100, L500.3400, L500.4050 #### [facility] [address] [place], [address] Eosinophils/100 WBC (Bld) 12.1 % High 0-5 [facility] Comment on above: Performed By: #### L 100.0100, L500.3400, L500.4050 #### [facility] [address] [place], [address] Erythrocyte distribution width (RBC) [Ratio] 14.0 % Normal 11.6-14.6 [facility] Comment on above: Performed By: #### L 100.0100, L500.3400, L500.4050 #### [facility] [address] [place], [address] Hematocrit (Bld) [Volume fraction] 23.1 % Low 40-54 [facility] Comment on above: Performed By: #### L 100.0100, L500.3400, L500.4050 #### [facility] [address] [place], [address] Hemoglobin (Bld) [Mass/Vol] 7.5 g/dL Low 13.0-16.5 [facility] Comment on above: Performed By: #### L 100.0100, L500.3400, L500.4050 #### [facility] [address] [place], [address] IG% 0.200 Normal 0.0-0.9 [facility] Comment on above: Result Comment: IG% - Immature Granulocytes (promyelocytes, myelocytes and metamyelocytes) > 1% indicates that a LEFT SHIFT is Present. Performed By: #### L 100.0100, L500.3400, L500.4050 #### [facility] [address] [place], [address] Lymphocytes/100 WBC (Bld) 28.0 % Normal 19-41 [facility] Comment on above: Performed By: #### L 100.0100, L500.3400, L500.4050 #### [facility] [address] [place], [address] MCH (RBC) [Entitic mass] 30.5 pg Normal 27.0-32.0 [facility] Comment on above: Performed By: #### L 100.0100, L500.3400, L500.4050 #### [facility] [address] [place], [address] MCHC (RBC) [Mass/Vol] 32.5 g/dL Normal 32-36 [facility] Comment on above: Performed By: #### L 100.0100, L500.3400, L500.4050 #### [facility] [address] [place], [address] MCV (RBC) [Entitic vol] 93.9 fL Normal 80-94 [facility] Comment on above: Performed By: #### L 100.0100, L500.3400, L500.4050 #### [facility] [address] [place], [address] Monocytes/100 WBC (Bld) 13.1 % High 0-10 [facility] Comment on above: Performed By: #### L 100.0100, L500.3400, L500.4050 #### [facility] [address] [place], [address] Neutrophils/100 WBC (Bld) 45.4 % Low 47-70 [facility] Comment on above: Performed By: #### L 100.0100, L500.3400, L500.4050 #### [facility] [address] [place], [address] Nucleated RBC (Bld) [#/Vol] 0 10*3/uL Normal 0-5 [facility] Comment on above: Performed By: #### L 100.0100, L500.3400, L500.4050 #### [facility] [address] [place], [address] Platelet mean volume (Bld) [Entitic vol] 9.7 fL Normal 6.2-12.0 [facility] Comment on above: Performed By: #### L 100.0100, L500.3400, L500.4050 #### [facility] [address] [place], [address] Platelets (Bld) [#/Vol] 225 10*3/uL Normal 150-450 [facility] Comment on above: Performed By: #### L 100.0100, L500.3400, L500.4050 #### [facility] [address] [place], [address] RBC (Bld) [#/Vol] 2.46 10*6/uL Low 4.6-6.2 [facility] Comment on above: Performed By: #### L 100.0100, L500.3400, L500.4050 #### [facility] [address] [place], [address] RDW SD 48.2 fl High 35.1-43.9 [facility] Comment on above: Performed By: #### L 100.0100, L500.3400, L500.4050 #### [facility] [address] [place], [address] WBC (Bld) [#/Vol] 4.0 10*3/uL Low 4.4-11.0 [facility] Comment on above: Performed By: #### L 100.0100, L500.3400, L500.4050 #### [facility] [address] [place], [address] Comprehensive metabolic 2000 panelon 02-24-2024 AST [Catalytic activity/Vol] 163 U/L Abnormal 15 - 37 [facility] Determination of erythrocyte mean corpuscular volume (MCV)on 02-24-2024 MCV (RBC) [Entitic vol] 93.9 fL 80-94 [facility] Direct bilirubinon Bilirubin.direct [Mass/Vol] 0.40 mg/dL 0.00-0.30 [facility] Erythrocyte distribution wid th ratioon 02-24-2024 Erythrocyte distribution width (RBC) [Ratio] 14.0 % 11.6-14.6 [facility] Erythrocyte distribution wid th standard deviationon 02-24-2024 Erythrocyte distribution width (RBC) [Entitic vol] 48.2 fL 35.1-43.9 [facility] Immature granulocytes/100 WB C Auto (Bld)on 02-24-2024 Immature granulocytes/100 WBC (Bld) 0.200 % 0.0-0.9 [facility] Comment on above: IG% - Immature Granu locytes (promyelocytes, myelocytes and metamyelocytes) > 1% indicates that a LEFT SHIFT is Present. Laboratory - Chemistry and C hemistry - challengeon 02-24-2024 ALP [Catalytic activity/Vol] 915 U/L 45-117 [facility] ALT [Catalytic activity/Vol] 96 U/L - [facility] CO2 [Moles/Vol] 27.0 mmol/L 21.0-32.0 [facility] Globulin (S) [Mass/Vol] 6.3 g/dL 2.2-4.2 [facility] Urea nitrogen/Creatinine [Mass ratio] 25.0 mg/mg 10-20 [facility] - Hematology and Cell countson 02-24-2024 MCH (RBC) [Entitic mass] 30.5 pg 27.0-32.0 [facility] MCHC (RBC) [Mass/Vol] 32.5 g/dL 32-36 [facility] Nucleated RBC/100 WBC (Bld) [Ratio] 0 % 0-5 [facility] Platelet mean volume (Bld) [Entitic vol] 9.7 fL 6.2-12.0 [facility] Platelets (Bld) [#/Vol] 225 10*3/uL 150-450 [facility] Liver Profileon 02-24-2024 Albumin [Mass/Vol] 1.9 g/dL Low 3.2-5.0 [facility] Comment on above: Performed By: #### L 100.0100, L500.3400, L500.4050 #### [facility] [address] [place], [address] ALK P 915 U/L High -117 [facility] Comment on above: Performed By: #### L 100.0100, L500.3400, L500.4050 #### [facility] [address] [place], [address] ALT [Catalytic activity/Vol] 96 U/L High [facility] Comment on above: Performed By: #### L 100.0100, L500.3400, L500.4050 #### [facility] [address] [place], [address] AST [Catalytic activity/Vol] 163 U/L High 15-37 [facility] Comment on above: Performed By: #### L 100.0100, L500.3400, L500.4050 #### [facility] [address] [place], [address] Bilirubin [Mass/Vol] 0.70 mg/dL Normal 0.20-1.00 [facility] Comment on above: Result Comment: For patients on eltrombopag therapy, use of Dimension [place] TBIL is not recommended. Performed By: #### L 100.0100, L500.3400, L500.4050 #### [facility] [address] [place], [address] Bilirubin.direct [Mass/Vol] 0.40 mg/dL High 0.00-0.30 [facility] Comment on above: Performed By: #### L 100.0100, L500.3400, L500.4050 #### [facility] [address] [place], [address] Globulin (S) [Mass/Vol] 6.3 g/dL High 2.2-4.2 [facility] Comment on above: Performed By: #### L 100.0100, L500.3400, L500.4050 #### [facility] [address] [place], [address] T PROT 8.2 g/dL Normal 6.4-8.2 [facility] Comment on above: Performed By: #### L 100.0100, L500.3400, L500.4050 #### [facility] [address] [place], [address] No Panel Informationon 02-23 Estimated GFR (MDRD) Amer 65 mL/min >60 [facility] Comment on above: GFR Calc Estimated GFR (MDRD) Non-Af Amer 54 mL/min >60 [facility] Comment on above: Non- GFR Calc RBC Auto (Bld) [#/Vol]on RBC (Bld) [#/Vol] 2.46 10*6/uL 4.6-6.2 [facility] Serum or plasma calcium soham urement (mass/volume)on 02-24-2024 Calcium [Mass/Vol] 8.3 mg/dL 8.5-10.1 [facility] Serum or plasma creatinine m easurement (mass/volume)on 02-24-2024 Creatinine [Mass/Vol] 1.60 mg/dL 0.70-1.30 [facility] Comment on above: The validity of the calculated GFR & GFRAA in patients over 70 years has not been determined. Clinical correlation is essential. Serum or plasma trough vanco mycin levelon 02-24-2024 Vancomycin trough [Mass/Vol] 18.1 ug/mL 5.0-15.0 [facility] Comment on above: VANCOMYCIN STANDARED DRUG THERAPY TROUGH LEVEL: 5.0 - 15.0 mg/L VANCOMYCIN HIGH INTENSITY THERAPY TROUGH LEVEL: 15.0 - 20.0 mg/L High Intensity therapy recommended for serious lifethreatening infections include:- Gzvltnsxaw-Wliqvtyevcfm-Nqovkiphe (Ventilator/Healtcare Associated)-Sepsis PLEASE CONTACT PHARMACY SERVICES (#[id number]) FOR INTERPRETATIONOF RESULTS. Serum or plasma urea nitroge n measurement (mass/volume)on 02-24-2024 Urea nitrogen [Mass/Vol] 40 mg/dL 7-18 [facility] Thin prep Papanicolaou smear with manual screeningon 02-24-2024 Thin prep Papanicolaou smear with manual screening 1.9 g/dL 3.2-5.0 [facility] Thin prep Papanicolaou smear with manual screening 163 U/L 15-37 [facility] Thin prep Papanicolaou smear with manual screening 4 5-15 [facility] VANCOMYCIN PRE DOSEon 2023 Vancomycin Pre 18.1 Abnormal 5 - 15 [facility] Vancomycin, Trough Levelon 0 3-26-2024 VANCO, TROUGH 18.1 ug/mL High 5.0-15.0 [facility] Comment on above: Order Comment: 1400 Result Comment: VANC OMYCIN STANDARED DRUG THERAPY TROUGH LEVEL: 5.0 - 15.0 mg/L VANCOMYCIN HIGH INTENSITY THERAPY TROUGH LEVEL: 15.0 - 20.0 mg/L High Intensity therapy recommended for serious life threatening infections include: - Meningitis -Endocarditis -Pneumonia (Ventilator/Healtcare Associated) -Sepsis PLEASE CONTACT PHARMACY SERVICES (#[id number]) FOR INTERPRETATION OF RESULTS. Performed By: #### L 100.0100, L500.3400, L500.4050 #### [facility] [address] [place], [address] Absolute lymphocyte counton 02-17-2024 Lymphocytes Auto (Unsp spec) [#/Vol] 1.30 10*3/uL 0.83-4.51 [facility] Automated blood hematocrit ( percentage)on 02-17-2024 Hematocrit (Bld) [Volume fraction] 25.7 % 40-54 [facility] Automated lymphocyte count a s percentage of total leukocyteson 02-17-2024 Lymphocytes/100 WBC Auto (Unsp spec) 26.3 % 19-41 [facility] Basic Metabolic Profile (BMP )on 02-17-2024 BUN/CRE 24.6 RATIO High 10-20 [facility] Comment on above: Performed By: #### L 100.0100, L501.8850, L500.2500 #### [facility] [address] [place], [address] CA,Total 8.5 mg/dL Normal 8.5-10.1 [facility] Comment on above: Performed By: #### L 100.0100, L501.8850, L500.2500 #### [facility] [address] [place], [address] Chloride [Moles/Vol] 103 mmol/L Normal 98-107 [facility] Comment on above: Performed By: #### L 100.0100, L501.8850, L500.2500 #### [facility] [address] [place], [address] CO2 [Moles/Vol] 29.0 mmol/L Normal 21.0-32.0 [facility] Comment on above: Performed By: #### L 100.0100, L501.8850, L500.2500 #### [facility] [address] [place], [address] Creatinine [Mass/Vol] 1.26 mg/dL Normal 0.70-1.30 [facility] Comment on above: Result Comment: The validity of the calculated GFR GFRAA in patients over 70 years has not been determined. Clinical correlation is essential. Performed By: #### L 100.0100, L501.8850, L500.2500 #### [facility] [address] [place], [address] EST GFR - AA 86 mL/min Normal >60 [facility] Comment on above: Result Comment: Afri can Romanian GFR Calc Performed By: #### L 100.0100, L501.8850, L500.2500 #### [facility] [address] [place], [address] GAP 5 Normal 5-15 [facility] Comment on above: Performed By: #### L 100.0100, L501.8850, L500.2500 #### [facility] [address] [place], [address] GFR/1.73 sq M.predicted among non-blacks MDRD (S/P/Bld) [Vol rate/Area] 71 mL/min/{1.73_m2} Normal >60 [facility] Comment on above: Result Comment: Non- GFR Calc Performed By: #### L 100.0100, L501.8850, L500.2500 #### [facility] [address] [place], [address] Glucose [Mass/Vol] 150 mg/dL High 74-106 [facility] Comment on above: Result Comment: Fast ing Glucose result greater than or equal to 126 mg/dL suggests DIABETES MELLITUS per A.D.A. criteria. Performed By: #### L 100.0100, L501.8850, L500.2500 #### [facility] [address] [place], [address] Potassium [Moles/Vol] 4.3 mmol/L Normal 3.5-5.1 [facility] Comment on above: Performed By: #### L 100.0100, L501.8850, L500.2500 #### [facility] [address] [place], [address] Sodium [Moles/Vol] 137 mmol/L Normal 136-145 [facility] Comment on above: Performed By: #### L 100.0100, L501.8850, L500.2500 #### [facility] [address] [place], [address] Urea nitrogen [Mass/Vol] 31 mg/dL High 7-18 [facility] Comment on above: Performed By: #### L 100.0100, L501.8850, L500.2500 #### [facility] [address] [place], [address] Basophil percentageon 2023 Basophils/100 WBC (Bld) 1.2 % 0-1 [facility] Chloride [Moles/Vol] 103 mmol/L 98-107 [facility] Eosinophils/100 WBC (Bld) 6.5 % 0-5 [facility] Glucose [Mass/Vol] 150 mg/dL 74-106 [facility] Comment on above: Fasting Glucose resu lt greater than or equal to 126 mg/dL suggests DIABETES MELLITUS per A.D.A. criteria. Hemoglobin (Bld) [Mass/Vol] 8.3 g/dL 13.0-16.5 [facility] Monocytes/100 WBC (Bld) 14.8 % 0-10 [facility] Neutrophils (Bld) [#/Vol] 2.5 10*3/uL 2.0-7.7 [facility] Neutrophils/100 WBC (Bld) 51.0 % 47-70 [facility] Potassium [Moles/Vol] 4.3 mmol/L 3.5-5.1 [facility] Sodium [Moles/Vol] 137 mmol/L 136-145 [facility] WBC (Bld) [#/Vol] 4.9 10*3/uL 4.4-11.0 [facility] CBC W Auto Differential pane l (Bld)on 02-17-2024 Abs Neut (ANC) 2.5 K/uL 2 - 7.7 K/uL [facility] CBC W/Diff, Automatedon 01-29 Absolute Lymph 1.30 X10 3/uL Normal 0.83-4.51 [facility] Comment on above: Performed By: #### L 100.0100, L501.8850, L500.2500 #### [facility] [address] [place], [address] Absolute Neut 2.5 X10 3/uL Normal 2.0-7.7 [facility] Comment on above: Performed By: #### L 100.0100, L501.8850, L500.2500 #### [facility] [address] [place], [address] Basophils/100 WBC (Bld) 1.2 % High 0-1 [facility] Comment on above: Performed By: #### L 100.0100, L501.8850, L500.2500 #### [facility] [address] [place], [address] Eosinophils/100 WBC (Bld) 6.5 % High 0-5 [facility] Comment on above: Performed By: #### L 100.0100, L501.8850, L500.2500 #### [facility] [address] [place], [address] Erythrocyte distribution width (RBC) [Ratio] 16.0 % High 11.6-14.6 [facility] Comment on above: Performed By: #### L 100.0100, L501.8850, L500.2500 #### [facility] [address] [place], [address] Hematocrit (Bld) [Volume fraction] 25.7 % Low 40-54 [facility] Comment on above: Performed By: #### L 100.0100, L501.8850, L500.2500 #### [facility] [address] [place], [address] Hemoglobin (Bld) [Mass/Vol] 8.3 g/dL Low 13.0-16.5 [facility] Comment on above: Performed By: #### L 100.0100, L501.8850, L500.2500 #### [facility] [address] [place], [address] IG% 0.200 Normal 0.0-0.9 [facility] Comment on above: Result Comment: IG% - Immature Granulocytes (promyelocytes, myelocytes and metamyelocytes) > 1% indicates that a LEFT SHIFT is Present. Performed By: #### L 100.0100, L501.8850, L500.2500 #### [facility] [address] [place], [address] Lymphocytes/100 WBC (Bld) 26.3 % Normal 19-41 [facility] Comment on above: Performed By: #### L 100.0100, L501.8850, L500.2500 #### [facility] [address] [place], [address] MCH (RBC) [Entitic mass] 30.6 pg Normal 27.0-32.0 [facility] Comment on above: Performed By: #### L 100.0100, L501.8850, L500.2500 #### [facility] [address] [place], [address] MCHC (RBC) [Mass/Vol] 32.3 g/dL Normal 32-36 [facility] Comment on above: Performed By: #### L 100.0100, L501.8850, L500.2500 #### [facility] [address] [place], [address] MCV (RBC) [Entitic vol] 94.8 fL High 80-94 [facility] Comment on above: Performed By: #### L 100.0100, L501.8850, L500.2500 #### [facility] [address] [place], [address] Monocytes/100 WBC (Bld) 14.8 % High 0-10 [facility] Comment on above: Performed By: #### L 100.0100, L501.8850, L500.2500 #### [facility] [address] [place], [address] Neutrophils/100 WBC (Bld) 51.0 % Normal 47-70 [facility] Comment on above: Performed By: #### L 100.0100, L501.8850, L500.2500 #### [facility] [address] [place], [address] Nucleated RBC (Bld) [#/Vol] 0 10*3/uL Normal 0-5 [facility] Comment on above: Performed By: #### L 100.0100, L501.8850, L500.2500 #### [facility] [address] [place], [address] Platelet mean volume (Bld) [Entitic vol] 11.0 fL Normal 6.2-12.0 [facility] Comment on above: Performed By: #### L 100.0100, L501.8850, L500.2500 #### [facility] [address] [place], [address] Platelets (Bld) [#/Vol] 179 10*3/uL Normal 150-450 [facility] Comment on above: Performed By: #### L 100.0100, L501.8850, L500.2500 #### [facility] [address] [place], [address] RBC (Bld) [#/Vol] 2.71 10*6/uL Low 4.6-6.2 [facility] Comment on above: Performed By: #### L 100.0100, L501.8850, L500.2500 #### [facility] [address] [place], [address] RDW SD 55.3 fl High 35.1-43.9 [facility] Comment on above: Performed By: #### L 100.0100, L501.8850, L500.2500 #### [facility] [address] [place], [address] WBC (Bld) [#/Vol] 4.9 10*3/uL Normal 4.4-11.0 [facility] Comment on above: Performed By: #### L 100.0100, L501.8850, L500.2500 #### [facility] [address] [place], [address] Determination of erythrocyte mean corpuscular volume (MCV)on 02-17-2024 MCV (RBC) [Entitic vol] 94.8 fL 80-94 [facility] Erythrocyte distribution wid th ratioon 02-17-2024 Erythrocyte distribution width (RBC) [Ratio] 16.0 % 11.6-14.6 [facility] Erythrocyte distribution wid th standard deviationon 02-17-2024 Erythrocyte distribution width (RBC) [Entitic vol] 55.3 fL 35.1-43.9 [facility] Immature granulocytes/100 WB C Auto (Bld)on 02-17-2024 Immature granulocytes/100 WBC (Bld) 0.200 % 0.0-0.9 [facility] Comment on above: IG% - Immature Granu locytes (promyelocytes, myelocytes and metamyelocytes) > 1% indicates that a LEFT SHIFT is Present. Laboratory - Chemistry and C hemistry - challengeon 02-17-2024 CO2 [Moles/Vol] 29.0 mmol/L 21.0-32.0 [facility] Urea nitrogen/Creatinine [Mass ratio] 24.6 mg/mg 10-20 [facility] - Hematology and Cell countson 02-17-2024 MCH (RBC) [Entitic mass] 30.6 pg 27.0-32.0 [facility] MCHC (RBC) [Mass/Vol] 32.3 g/dL 32-36 [facility] Nucleated RBC/100 WBC (Bld) [Ratio] 0 % 0-5 [facility] Platelet mean volume (Bld) [Entitic vol] 11.0 fL 6.2-12.0 [facility] Platelets (Bld) [#/Vol] 179 10*3/uL 150-450 [facility] No Panel Informationon 02-16 Estimated GFR (MDRD) Amer 86 mL/min >60 [facility] Comment on above: GFR Calc Estimated GFR (MDRD) Non-Af Amer 71 mL/min >60 [facility] Comment on above: Non- GFR Calc RBC Auto (Bld) [#/Vol]on RBC (Bld) [#/Vol] 2.71 10*6/uL 4.6-6.2 [facility] Serum or plasma calcium soham urement (mass/volume)on 02-17-2024 Calcium [Mass/Vol] 8.5 mg/dL 8.5-10.1 [facility] Serum or plasma creatinine m easurement (mass/volume)on 02-17-2024 Creatinine [Mass/Vol] 1.26 mg/dL 0.70-1.30 [facility] Comment on above: The validity of the calculated GFR & GFRAA in patients over 70 years has not been determined. Clinical correlation is essential. Serum or plasma urea nitroge n measurement (mass/volume)on 02-17-2024 Urea nitrogen [Mass/Vol] 31 mg/dL 7-18 [facility] Serum or plasma vancomycin m easurement (mass/volume)on 02-17-2024 Vancomycin [Mass/Vol] 33.5 ug/mL 0.0-15.0 [facility] Comment on above: VANCOMYCIN STANDARD DRUG THERAPY: CRITICAL VALUE IS > 15.0 mg/L VANCOMYCIN HIGH INTENSITY THERAPY: CRITICAL VALUE IS > 20.0 mg/L PLEASE CONTACT PHARMACY SERVICES (#[id number]) FOR INTERPRETATIONOF RESULTS. THIS RESULT DOES NOT REPRESENT A PEAK OR TROUGHLEVEL FOR THIS DRUG. Thin prep Papanicolaou smear with manual screeningon 02-17-2024 Thin prep Papanicolaou smear with manual screening 5 5-15 [facility] VANCOMYCIN LEVELon Vancomycin, result 33.5 Abnormal 0 - [address] [facility] Vancomycin, Random Levelon 0 02-17-2024 VANCO, RANDOM 33.5 ug/mL High 0.0-15.0 [facility] Comment on above: Order Comment: PT DO DEBORAH TIME 0800 AND 1999. Result Comment: VANC OMYCIN STANDARD DRUG THERAPY: CRITICAL VALUE IS > 15.0 mg/L VANCOMYCIN HIGH INTENSITY THERAPY: CRITICAL VALUE IS > 20.0 mg/L PLEASE CONTACT PHARMACY SERVICES (#[id number]) FOR INTERPRETATION OF RESULTS. THIS RESULT DOES NOT REPRESENT A PEAK OR TROUGH LEVEL FOR THIS DRUG. Performed By: #### L 100.0100, L501.8850, L500.2500 #### [facility] [address] [place], [place], [id number] RETIC COUNTon 08-18-2023 Reticulocytes (Bld) [#/Vol] 0.14427 10*3/uL 0.018 - 0.100 M/uL [facility] Reticulocytes (Bld) [#/Vol]o n 08-18-2023 Reticulocytes/100 RBC (Bld) 2.6 % High 0.4 - 2.0 % [facility] Comprehensive metabolic 2000 panelon 08-07-2023 Albumin [Mass/Vol] 2.7 g/dL Low 3.9 - 4.9 g/dL [facility] ALP [Catalytic activity/Vol] 627 U/L High 38 - 113 U/L [facility] ALT With P-5'-P [Catalytic activity/Vol] 67 U/L High 10 - 54 U/L [facility] Anion gap [Moles/Vol] 6 mmol/L Low 9 - 18 mmol/L [facility] AST With P-5'-P [Catalytic activity/Vol] 87 U/L High 14 - 40 U/L [facility] Bilirubin [Mass/Vol] 1.3 mg/dL 0.2 - 1 .3 mg/dL [facility] Calcium [Mass/Vol] 9.0 mg/dL 8.5 - 10. 2 mg/dL [facility] Chloride [Moles/Vol] 101 mmol/L 97 - 10 5 mmol/L [facility] CO2 [Moles/Vol] 23 mmol/L 22 - 30 mmol/L [facility] Creatinine [Mass/Vol] 1.13 mg/dL 0.73 - 1.22 mg/dL [facility] Estimated Glomerular Filtration Rate 90 mL/min/1.73m >=60 mL/min/1.73m [facility] Glucose [Mass/Vol] 116 mg/dL High 74 - 99 mg/dL [facility] Potassium [Moles/Vol] 5.1 mmol/L 3.7 - 5.1 mmol/L [facility] Protein [Mass/Vol] 8.6 g/dL High 6.3 - 8.0 g/dL [facility] Sodium [Moles/Vol] 130 mmol/L Low 136 - 144 mmol/L [facility] Urea nitrogen [Mass/Vol] 23 mg/dL 9 - 24 mg/dL [facility] Respiratory pathogens DNA an d RNA 12b panel PABLO+probe (Unsp spec)on 07-02-2023 Adenovirus hexon gene PABLO+probe Ql (Nph) Not detected Not detected [facility] B. parapertussis DNA PABLO+probe Ql (Unsp spec) Not detected Not detected [facility] B. pertussis DNA PABLO+probe Ql (Unsp spec) Not detected Not detected [facility] C. pneumoniae DNA PABLO+probe Ql (Unsp spec) Not detected Not detected [facility] FLUAV RNA PABLO+probe Ql (Unsp spec) Not detected Not detected [facility] FLUBV RNA PABLO+probe Ql (Unsp spec) Not detected Not detected [facility] HCoV [id number] RNA PABLO+probe Ql (Nph) Not detected Not detected [facility] HCoV HKU1 RNA PABLO+probe Ql (Unsp spec) Not detected Not detected [facility] HCoV NL63 RNA PABLO+non-probe Ql (Nph) Not detected Not detected [facility] HCoV OC43 RNA PABLO+probe Ql (Unsp spec) Not detected Not detected [facility] hMPV RNA PABLO+probe Ql (Unsp spec) Not detected Not detected [facility] M. pneumoniae DNA PABLO+probe Ql (Unsp spec) Not detected Not detected [facility] Parainfluenza virus 1 RNA PABLO+probe Ql (Unsp spec) Not detected Not detected [facility] Parainfluenza virus 2 RNA PABLO+probe Ql (Unsp spec) Not detected Not detected [facility] Parainfluenza virus 3 RNA PABLO+probe Ql (Unsp spec) Not detected Not detected [facility] Parainfluenza virus 4 P gene PABLO+probe Ql (Nph) Not detected Not detected [facility] Rhinovirus 5' UTR RNA PABLO+probe Ql (Nph) Not detected Not detected [facility] RSV RNA PABLO+probe Ql (Upper resp) Not detected Not detected [facility] SARS-CoV-2 (COVID-19) RNA PABLO+probe Ql (Resp) Not detected See comment [facility] XR ABDOMEN 1V SUPINEon 07-02 [facility] XR ABDOMEN 1V SUPINEon 06-02 [facility] Respiratory pathogens DNA an d RNA 12b panel PABLO+probe (Unsp spec)on 03-19-2023 Adenovirus hexon gene PABLO+probe Ql (Nph) Not detected Not detected [facility] B. parapertussis DNA PABLO+probe Ql (Unsp spec) Not detected Not detected [facility] B. pertussis DNA PABLO+probe Ql (Unsp spec) Not detected Not detected [facility] C. pneumoniae DNA PABLO+probe Ql (Unsp spec) Not detected Not detected [facility] FLUAV RNA PABLO+probe Ql (Unsp spec) Not detected Not detected [facility] FLUBV RNA PABLO+probe Ql (Unsp spec) Not detected Not detected [facility] HCoV [id number] RNA PABLO+probe Ql (Nph) Not detected Not detected [facility] HCoV HKU1 RNA PABLO+probe Ql (Unsp spec) Not detected Not detected [facility] HCoV NL63 RNA PABLO+non-probe Ql (Nph) Not detected Not detected [facility] HCoV OC43 RNA PABLO+probe Ql (Unsp spec) Not detected Not detected [facility] hMPV RNA PABLO+probe Ql (Unsp spec) Not detected Not detected [facility] M. pneumoniae DNA PABLO+probe Ql (Unsp spec) Not detected Not detected [facility] Parainfluenza virus 1 RNA PABLO+probe Ql (Unsp spec) Not detected Not detected [facility] Parainfluenza virus 2 RNA PABLO+probe Ql (Unsp spec) Not detected Not detected [facility] Parainfluenza virus 3 RNA PABLO+probe Ql (Unsp spec) Detected Abnormal Not detected [facility] Parainfluenza virus 4 P gene PABLO+probe Ql (Nph) Not detected Not detected [facility] Rhinovirus 5' UTR RNA PABLO+probe Ql (Nph) Not detected Not detected [facility] RSV RNA PABLO+probe Ql (Upper resp) Not detected Not detected [facility] SARS-CoV-2 (COVID-19) RNA PABLO+probe Ql (Resp) Not detected See comment [facility] SPIROMETRY BASELINE ONLYon 0 03-05-2023 [id number]% PRE (L/S) 0.25 L/S [facility] FEV1 PRE (L) 0.86 L [facility] FEV1/FVC PRE (%) 35 % [facility] FVC PRE (L) 2.43 L [facility] PEF PRE (L/S) 3.95 L/S [facility] CBC W Auto Differential pane l (Bld)on 02-26-2023 Basophils (Bld) [#/Vol] 0.07 10*3/uL <0.11 k/uL [facility] Basophils/100 WBC (Bld) 1.5 % [facility] Differential cell count method Nom (Bld) Auto [facility] Eosinophils (Bld) [#/Vol] 0.17 10*3/uL <0.46 k/uL [facility] Eosinophils/100 WBC (Bld) 3.7 % [facility] Erythrocyte distribution width (RBC) [Ratio] 13.7 % 11.5 - 15.0 % [facility] Hematocrit (Bld) [Volume fraction] 38.6 % Low 39.0 - 51.0 % [facility] Hemoglobin (Bld) [Mass/Vol] 13.3 g/dL 13.0 - 17.0 g/dL [facility] Immature granulocytes (Bld) [#/Vol] <0.10 k/uL [facility] Immature granulocytes/100 WBC (Bld) 0.4 % [facility] Lymphocytes (Bld) [#/Vol] 0.97 10*3/uL Low 1.00 - 4.00 k/uL [facility] Lymphocytes/100 WBC (Bld) 21.0 % [facility] MCH (RBC) [Entitic mass] 31.5 pg 26.0 - 34.0 pg [facility] MCHC (RBC) [Mass/Vol] 34.5 g/dL 30.5 - 36.0 g/dL [facility] MCV (RBC) [Entitic vol] 91.5 fL 80.0 - 100.0 fL [facility] Monocytes (Bld) [#/Vol] 0.36 10*3/uL <0.87 k/uL [facility] Monocytes/100 WBC (Bld) 7.8 % [facility] Neutrophils (Bld) [#/Vol] 3.03 10*3/uL 1.45 - 7.50 k/uL [facility] Neutrophils/100 WBC (Bld) 65.6 % [facility] Nucleated RBC (Bld) [#/Vol] <0.01 k/uL [facility] Nucleated RBC/100 WBC (Bld) [Ratio] 0.0 /100 WBC [facility] Platelet mean volume (Bld) [Entitic vol] 9.5 fL 9.0 - 12.7 fL [facility] Platelets (Bld) [#/Vol] 241 10*3/uL 150 - 400 k/uL [facility] RBC (Bld) [#/Vol] 4.22 10*6/uL 4.20 - 6.0 0 m/uL [facility] WBC (Bld) [#/Vol] 4.62 10*3/uL 3.70 - 11. 00 k/uL [facility] PT panel Coag (PPP)on 2022 INR Coag (PPP) [Relative time] 1.3 {INR} 0.9 - 1.3 [facility] PT Coag (PPP) [Time] 13.5 s High 9.7 - 1 3.0 sec [facility] Comprehensive metabolic 2000 panelon 12-04-2022 Albumin [Mass/Vol] 3.1 g/dL Low 3.9 - 4.9 g/dL [facility] ALP [Catalytic activity/Vol] 992 U/L High 38 - 113 U/L [facility] ALT [Catalytic activity/Vol] 131 U/L High 10 - 54 U/L [facility] Anion gap [Moles/Vol] 6 mmol/L Low 9 - 18 mmol/L [facility] AST [Catalytic activity/Vol] 140 U/L High 14 - 40 U/L [facility] Bilirubin [Mass/Vol] 1.4 mg/dL High 0.2 - 1 .3 mg/dL [facility] Calcium [Mass/Vol] 9.1 mg/dL 8.5 - 10. 2 mg/dL [facility] Chloride [Moles/Vol] 96 mmol/L Low 97 - 10 5 mmol/L [facility] CO2 [Moles/Vol] 32 mmol/L High 22 - 30 mmol/L [facility] Creatinine [Mass/Vol] 0.78 mg/dL 0.73 - 1.22 mg/dL [facility] Estimated Glomerular Filtration Rate 124 mL/min/1.73m >=60 mL/min/1.73m [facility] Glucose [Mass/Vol] 195 mg/dL High 74 - 99 mg/dL [facility] Potassium [Moles/Vol] 4.1 mmol/L 3.7 - 5.1 mmol/L [facility] Protein [Mass/Vol] 7.7 g/dL 6.3 - 8.0 g/dL [facility] Sodium [Moles/Vol] 134 mmol/L Low 136 - 144 mmol/L [facility] Urea nitrogen [Mass/Vol] 13 mg/dL 9 - 24 mg/dL [facility] MAGNESIUM BLDon 12-04-2022 Magnesium [Mass/Vol] 1.6 mg/dL Low 1.7 - 2 .3 mg/dL [facility] CBC W Auto Differential pane l (Bld)on 12-03-2022 Basophils (Bld) [#/Vol] 0.07 10*3/uL <0.11 k/uL [facility] Basophils/100 WBC (Bld) 0.7 % [facility] Differential cell count method Nom (Bld) Auto [facility] Eosinophils (Bld) [#/Vol] 1.54 10*3/uL High <0.46 k/uL [facility] Eosinophils/100 WBC (Bld) 15.0 % [facility] Erythrocyte distribution width (RBC) [Ratio] 13.9 % 11.5 - 15.0 % [facility] Hematocrit (Bld) [Volume fraction] 34.0 % Low 39.0 - 51.0 % [facility] Hemoglobin (Bld) [Mass/Vol] 11.9 g/dL Low 13.0 - 17.0 g/dL [facility] Immature granulocytes (Bld) [#/Vol] 0.03 10*3/uL <0.10 k/uL [facility] Immature granulocytes/100 WBC (Bld) 0.3 % [facility] Lymphocytes (Bld) [#/Vol] 3.60 10*3/uL 1.00 - 4.00 k/uL [facility] Lymphocytes/100 WBC (Bld) 35.0 % [facility] MCH (RBC) [Entitic mass] 31.3 pg 26.0 - 34.0 pg [facility] MCHC (RBC) [Mass/Vol] 35.0 g/dL 30.5 - 36.0 g/dL [facility] MCV (RBC) [Entitic vol] 89.5 fL 80.0 - 100.0 fL [facility] Monocytes (Bld) [#/Vol] 0.98 10*3/uL High <0.87 k/uL [facility] Monocytes/100 WBC (Bld) 9.5 % [facility] Neutrophils (Bld) [#/Vol] 4.08 10*3/uL 1.45 - 7.50 k/uL [facility] Neutrophils/100 WBC (Bld) 39.5 % [facility] Nucleated RBC (Bld) [#/Vol] <0.01 k/uL [facility] Nucleated RBC/100 WBC (Bld) [Ratio] 0.0 /100 WBC [facility] Platelet mean volume (Bld) [Entitic vol] 9.7 fL 9.0 - 12.7 fL [facility] Platelets (Bld) [#/Vol] 214 10*3/uL 150 - 400 k/uL [facility] RBC (Bld) [#/Vol] 3.80 10*6/uL Low 4.20 - 6.0 0 m/uL [facility] WBC (Bld) [#/Vol] 10.30 10*3/uL 3.70 - 11 .00 k/uL [facility] VANCOMYCINon 12-03-2022 Vancomycin random [Mass/Vol] Low 10.0 - 20.0 ug/mL [facility] VANCOMYCINon 11-28-2022 Vancomycin random [Mass/Vol] 5.3 ug/mL Low 10.0 - 20.0 ug/mL [facility] Absolute lymphocyte counton 11-26-2022 Lymphocytes Auto (Unsp spec) [#/Vol] 1.31 10*3/uL 0.83-4.51 [facility] Work Phone: Automated blood hematocrit ( percentage)on 11-26-2022 Hematocrit (Bld) [Volume fraction] 30.8 % 40-54 [facility] Basophil percentageon 2021 Basophils/100 WBC (Bld) 1.6 % 0-1 [facility] Work Phone: Bilirubin [Mass/Vol] 0.80 mg/dL 0.20-1.00 [facility] Comment on above: For patients on eltr ombopag therapy, use of Dimension [place] TBIL is not recommended. Chloride [Moles/Vol] 101 mmol/L 98-107 [facility] Work Phone: Eosinophils/100 WBC (Bld) 16.6 % 0-5 [facility] Glucose [Mass/Vol] 388 mg/dL 74-106 [facility] Work Phone: Comment on above: Glucose result great er than or equal to 200 mg/dLsuggests DIABETES MELLITUS per A.D.A. criteria. Neutrophils (Bld) [#/Vol] 2.3 10*3/uL 2.0-7.7 [facility] Work Phone: Neutrophils/100 WBC (Bld) 47.2 % 47-70 [facility] Potassium [Moles/Vol] 4.4 mmol/L 3.5-5.1 [facility] Protein [Mass/Vol] 8.1 g/dL 6.4-8.2 [facility] Work Phone: Sodium [Moles/Vol] 131 mmol/L 136-145 [facility] Work Phone: WBC (Bld) [#/Vol] 4.9 10*3/uL 4.4-11.0 [facility] Blood erythrocytes count (nu mber/volume)on 11-26-2022 RBC (Bld) [#/Vol] 3.38 10*6/uL 4[facility]6-6.2 [facility] Work Phone: Blood hemoglobin measurement (mass/volume)on 11-26-2022 Hemoglobin (Bld) [Mass/Vol] 10.2 g/dL 13.0-16.5 [facility] Blood lymphocytes/100 leukoc yteson 11-26-2022 Lymphocytes/100 WBC (Bld) 26.5 % 19-41 [facility] Work Phone: [phone] Blood monocytes/100 leukocyt eson 11-26-2022 Monocytes/100 WBC (Bld) 7.9 % 0-10 [facility] Work Phone: Blood platelet mean volumeon 11-26-2022 Platelet mean volume (Bld) [Entitic vol] 9.4 fL 6.2-12.0 [facility] Work Phone: CBC W Auto Differential pane l (Bld)on 11-26-2022 Abs Neut (ANC) 2.3 K/uL 2 - 7.7 K/uL [facility] Comprehensive metabolic 2000 panelon 11-26-2022 AST [Catalytic activity/Vol] 145 U/L Abnormal 15 - 37 [facility] Determination of erythrocyte mean corpuscular volume (MCV)on 11-26-2022 MCV (RBC) [Entitic vol] 91.1 fL 80-94 [facility] Work Phone: Laboratory - Chemistry and C hemistry - challengeon 11-26-2022 ALP [Catalytic activity/Vol] 1147 U/L 45-117 [facility] ALT [Catalytic activity/Vol] 145 U/L 16-61 [facility] CO2 [Moles/Vol] 27.0 mmol/L 21.0-32.0 [facility] Work Phone: Globulin (S) [Mass/Vol] 5.8 g/dL 2.2-4.2 [facility] Work Phone: Magnesium [Mass/Vol] 1.8 mg/dL 1.6-2.6 [facility] Work Phone: Urea nitrogen/Creatinine [Mass ratio] 12.9 mg/mg 10-20 [facility] Work Phone: Laboratory - Hematology and Cell countson 11-26-2022 Erythrocyte distribution width (RBC) [Entitic vol] 42.1 fL 35.1-43.9 [facility] Work Phone: Erythrocyte distribution width (RBC) [Ratio] 13.1 % 11.6-14.6 [facility] Work Phone: Immature granulocytes/100 WBC (Bld) 0.200 % 0.0-0.9 [facility] Work Phone: Comment on above: IG% - Immature Granu locytes (promyelocytes, myelocytes and metamyelocytes) > 1% indicates that a LEFT SHIFT is Present. MCH (RBC) [Entitic mass] 30.2 pg 27.0-32.0 [facility] Work Phone: Nucleated RBC/100 WBC (Bld) [Ratio] 0 % 0-5 [facility] Work Phone: MCHC Auto (RBC) [Mass/Vol]on 11-26-2022 MCHC (RBC) [Mass/Vol] 33.1 g/dL 32-36 [facility] Work Phone: Magnesium [Mass/Vol]on 11-26 Magnesium.plasma/Magn esium.RBC (Bld) [Molar ratio] 1.8 1.6 - 2.6 [facility] No Panel Informationon 11-26 Estimated GFR (MDRD) Amer 96 mL/min >60 [facility] Work Phone: Comment on above: GFR Calc Estimated GFR (MDRD) Non-Af Amer 79 mL/min >60 [facility] Work Phone: Comment on above: Non- GFR Calc Platelets bldon 11-26-2022 Platelets (Bld) [#/Vol] 196 10*3/uL 150-450 [facility] Serum or plasma albumin soham urement (mass/volume)on 11-26-2022 Albumin [Mass/Vol] 2.3 g/dL 3.2-5.0 [facility] Work Phone: Serum or plasma albumin/glob ulin mass ratioon 11-26-2022 Albumin/Globulin [Mass ratio] 0.4 {ratio} 0.9-2.4 [facility] Work Phone: Serum or plasma calcium soham urement (mass/volume)on 11-26-2022 Calcium [Mass/Vol] 8.7 mg/dL 8.5-10.1 [facility] Work Phone: Serum or plasma creatinine m easurement (mass/volume)on 11-26-2022 Creatinine [Mass/Vol] 1.16 mg/dL 0.70-1.30 [facility] Comment on above: The validity of the calculated GFR & GFRAA in patients over 70 years has not been determined. Clinical correlation is essential. Serum or plasma urea nitroge n measurement (mass/volume)on 11-26-2022 Urea nitrogen [Mass/Vol] 15 mg/dL 7-18 [facility] Work Phone: Thin prep Papanicolaou smear with manual screeningon 11-26-2022 Thin prep Papanicolaou smear with manual screening 145 U/L 15-37 [facility] Work Phone: Thin prep Papanicolaou smear with manual screening 3 5-15 [facility] Work Phone: SPIROMETRY BASELINE ONLYon 1 01-21-2022 [id number]% PRE (L/S) 0.22 L/S [facility] FEV1 PRE (L) 0.82 L [facility] FEV1/FVC PRE (%) 35 % [facility] FVC PRE (L) 2.34 L [facility] PEF PRE (L/S) 3.81 L/S [facility] Absolute lymphocyte counton 11-18-2022 Lymphocytes Auto (Unsp spec) [#/Vol] 1.49 10*3/uL 0.83-4.51 [facility] Work Phone: Basophil percentageon 2021 Basophils/100 WBC (Bld) 1.2 % 0-1 [facility] Work Phone: Bilirubin [Mass/Vol] 1.50 mg/dL 0.20-1.00 [facility] Work Phone: Comment on above: For patients on eltr ombopag therapy, use of Dimension [place] TBIL is not recommended. Chloride [Moles/Vol] 103 mmol/L 98-107 [facility] Work Phone: Eosinophils/100 WBC (Bld) 12.6 % 0-5 [facility] Work Phone: Glucose [Mass/Vol] 400 mg/dL 74-106 [facility] Work Phone: Comment on above: Glucose result great er than or equal to 200 mg/dLsuggests DIABETES MELLITUS per A.D.A. criteria. Neutrophils (Bld) [#/Vol] 3.5 10*3/uL 2.0-7.7 [facility] Work Phone: Neutrophils/100 WBC (Bld) 53.9 % 47-70 [facility] Work Phone: [phone] Potassium [Moles/Vol] 4.8 mmol/L 3.5-5.1 [facility] Work Phone: Protein [Mass/Vol] 8.5 g/dL 6.4-8.2 [facility] Work Phone: [phone] Sodium [Moles/Vol] 133 mmol/L 136-145 [facility] Work Phone: WBC (Bld) [#/Vol] 6.4 10*3/uL 4.4-11.0 [facility] Work Phone: Blood erythrocytes count (nu mber/volume)on 11-18-2022 RBC (Bld) [#/Vol] 3.60 10*6/uL 4.6-6.2 [facility] Work Phone: [phone] Blood hemoglobin measurement (mass/volume)on 11-18-2022 Hemoglobin (Bld) [Mass/Vol] 11.0 g/dL 13.0-16.5 [facility] Work Phone: Blood lymphocytes/100 leukoc yteson 11-18-2022 Lymphocytes/100 WBC (Bld) 23.2 % 19-41 [facility] Work Phone: Blood monocytes/100 leukocyt eson 11-18-2022 Monocytes/100 WBC (Bld) 8.6 % 0-10 [facility] Work Phone: Blood platelet mean volumeon 11-18-2022 Platelet mean volume (Bld) [Entitic vol] 9.1 fL 6.2-12.0 [facility] Work Phone: Determination of erythrocyte mean corpuscular volume (MCV)on 11-18-2022 MCV (RBC) [Entitic vol] 92.2 fL 80-94 [facility] Work Phone: Hematocrit Auto (Bld) [Volum e fraction]on 11-18-2022 Hematocrit (Bld) [Volume fraction] 33.2 % 40-54 [facility] Work Phone: Laboratory - Chemistry and C hemistry - challengeon 11-18-2022 ALP [Catalytic activity/Vol] 987 U/L 45-117 [facility] Work Phone: ALT [Catalytic activity/Vol] 94 U/L 16-61 [facility] Work Phone: CO2 [Moles/Vol] 25.0 mmol/L 21.0-32.0 [facility] Work Phone: Globulin (S) [Mass/Vol] 6.5 g/dL 2.2-4.2 [facility] Work Phone: Magnesium [Mass/Vol] 1.8 mg/dL 1.6-2.6 [facility] Work Phone: Urea nitrogen/Creatinine [Mass ratio] 21.8 mg/mg 10-20 [facility] Work Phone: Laboratory - Hematology and Cell countson 11-18-2022 Erythrocyte distribution width (RBC) [Entitic vol] 42.8 fL 35.1-43.9 [facility] Work Phone: Erythrocyte distribution width (RBC) [Ratio] 12.8 % 11.6-14.6 [facility] Work Phone: Immature granulocytes/100 WBC (Bld) 0.500 % 0.0-0.9 [facility] Work Phone: Comment on above: IG% - Immature Granu locytes (promyelocytes, myelocytes and metamyelocytes) > 1% indicates that a LEFT SHIFT is Present. MCH (RBC) [Entitic mass] 30.6 pg 27.0-32.0 [facility] Work Phone: Nucleated RBC/100 WBC (Bld) [Ratio] 0 % 0-5 [facility] Work Phone: MCHC Auto (RBC) [Mass/Vol]on 11-18-2022 MCHC (RBC) [Mass/Vol] 33.1 g/dL 32-36 [facility] Work Phone: No Panel Informationon 11-18 Estimated GFR (MDRD) Amer 112 mL/min >60 [facility] Work Phone: Comment on above: GFR Calc Estimated GFR (MDRD) Non-Af Amer 93 mL/min >60 [facility] Work Phone: Comment on above: Non- GFR Calc Platelets bldon 11-18-2022 Platelets (Bld) [#/Vol] 300 10*3/uL 150-450 [facility] Work Phone: Serum or plasma albumin soham urement (mass/volume)on 11-18-2022 Albumin [Mass/Vol] 2.0 g/dL 3.2-5.0 [facility] Work Phone: Serum or plasma albumin/glob ulin mass ratioon 11-18-2022 Albumin/Globulin [Mass ratio] 0.3 {ratio} 0.9-2.4 [facility] Work Phone: Serum or plasma calcium soham urement (mass/volume)on 11-18-2022 Calcium [Mass/Vol] 8.5 mg/dL 8.5-10.1 [facility] Work Phone: Serum or plasma creatinine m easurement (mass/volume)on 11-18-2022 Creatinine [Mass/Vol] 1.01 mg/dL 0.70-1.30 [facility] Work Phone: Comment on above: The validity of the calculated GFR & GFRAA in patients over 70 years has not been determined. Clinical correlation is essential. Serum or plasma urea nitroge n measurement (mass/volume)on 11-18-2022 Urea nitrogen [Mass/Vol] 22 mg/dL 7-18 [facility] Work Phone: Thin prep Papanicolaou smear with manual screeningon 11-18-2022 Thin prep Papanicolaou smear with manual screening 207 U/L 15-37 [facility] Work Phone: Thin prep Papanicolaou smear with manual screening 5 5-15 [facility] Work Phone: Absolute lymphocyte counton 11-15-2022 Lymphocytes Auto (Unsp spec) [#/Vol] 1.66 10*3/uL 0.83-4.51 [facility] Work Phone: Basophil percentageon 2021 Basophils/100 WBC (Bld) 1.2 % 0-1 [facility] Work Phone: Bilirubin [Mass/Vol] 0.60 mg/dL 0.20-1.00 [facility] Work Phone: Comment on above: For patients on eltr ombopag therapy, use of Dimension [place] TBIL is not recommended. Chloride [Moles/Vol] 105 mmol/L 98-107 [facility] Work Phone: Eosinophils/100 WBC (Bld) 8.6 % 0-5 [facility] Work Phone: Glucose [Mass/Vol] 375 mg/dL 74-106 [facility] Work Phone: [phone] Comment on above: Glucose result great er than or equal to 200 mg/dLsuggests DIABETES MELLITUS per A.D.A. criteria. Neutrophils (Bld) [#/Vol] 4.2 10*3/uL 2.0-7.7 [facility] Work Phone: [phone] Neutrophils/100 WBC (Bld) 56.9 % 47-70 [facility] Work Phone: [phone] Potassium [Moles/Vol] 5.2 mmol/L 3.5-5.1 [facility]: [phone] Protein [Mass/Vol] 8.9 g/dL 6.4-8.2 [facility] Work Phone: [phone] Sodium [Moles/Vol] 132 mmol/L 136-145 [facility] Work Phone: [phone] WBC (Bld) [#/Vol] 7.4 10*3/uL 4.4-11.0 [facility] Work Phone: Blood erythrocytes count (nu mber/volume)on 11-15-2022 RBC (Bld) [#/Vol] 3.68 10*6/uL 4.6-6.2 [facility]: Blood hemoglobin measurement (mass/volume)on 11-15-2022 Hemoglobin (Bld) [Mass/Vol] 11.2 g/dL 13.0-16.5 [facility] Work Phone: [phone] Blood lymphocytes/100 leukoc yteson 11-15-2022 Lymphocytes/100 WBC (Bld) 22.6 % 19-41 [facility] Work Phone: [phone] Blood monocytes/100 leukocyt eson 11-15-2022 Monocytes/100 WBC (Bld) 9.9 % 0-10 [facility] Work Phone: [phone] Blood platelet mean volumeon 11-15-2022 Platelet mean volume (Bld) [Entitic vol] 9.0 fL 6.2-12.0 [facility] Work Phone: Determination of erythrocyte mean corpuscular volume (MCV)on 11-15-2022 MCV (RBC) [Entitic vol] 92.7 fL 80-94 [facility] Work Phone: Hematocrit Auto (Bld) [Volum e fraction]on 11-15-2022 Hematocrit (Bld) [Volume fraction] 34.1 % 40-54 [facility] Work Phone: Laboratory - Chemistry and C hemistry - challengeon 11-15-2022 ALP [Catalytic activity/Vol] 947 U/L 45-117 [facility] Work Phone: ALT [Catalytic activity/Vol] 67 U/L 16-61 [facility] Work Phone: CO2 [Moles/Vol] 30.0 mmol/L 21.0-32.0 [facility] Work Phone: Globulin (S) [Mass/Vol] 7.0 g/dL 2.2-4.2 [facility] Work Phone: Urea nitrogen/Creatinine [Mass ratio] 17.9 mg/mg 10-20 [facility] Work Phone: Laboratory - Hematology and Cell countson 11-15-2022 Erythrocyte distribution width (RBC) [Entitic vol] 43.6 fL 35.1-43.9 [facility] Work Phone: Erythrocyte distribution width (RBC) [Ratio] 12.9 % 11.6-14.6 [facility] Work Phone: Immature granulocytes/100 WBC (Bld) 0.800 % 0.0-0.9 [facility] Work Phone: Comment on above: IG% - Immature Granu locytes (promyelocytes, myelocytes and metamyelocytes) > 1% indicates that a LEFT SHIFT is Present. MCH (RBC) [Entitic mass] 30.4 pg 27.0-32.0 [facility] Work Phone: Nucleated RBC/100 WBC (Bld) [Ratio] 0 % 0-5 [facility] Work Phone: MCHC Auto (RBC) [Mass/Vol]on 11-15-2022 MCHC (RBC) [Mass/Vol] 32.8 g/dL 32-36 [facility] Work Phone: No Panel Informationon 11-15 Estimated GFR (MDRD) Amer 129 mL/min >60 [facility] Work Phone: Comment on above: GFR Calc Estimated GFR (MDRD) Non-Af Amer 107 mL/min >60 [facility] Work Phone: Comment on above: Non- GFR Calc Platelets bldon 11-15-2022 Platelets (Bld) [#/Vol] 327 10*3/uL 150-450 [facility] Work Phone: Serum or plasma albumin soham urement (mass/volume)on 11-15-2022 Albumin [Mass/Vol] 1.9 g/dL 3.2-5.0 [facility] Work Phone: Serum or plasma albumin/glob ulin mass ratioon 11-15-2022 Albumin/Globulin [Mass ratio] 0.3 {ratio} 0.9-2.4 [facility] Work Phone: Serum or plasma calcium soham urement (mass/volume)on 11-15-2022 Calcium [Mass/Vol] 8.8 mg/dL 8.5-10.1 [facility] Work Phone: Serum or plasma creatinine m easurement (mass/volume)on 11-15-2022 Creatinine [Mass/Vol] 0.89 mg/dL 0.70-1.30 [facility] Work Phone: Comment on above: The validity of the calculated GFR & GFRAA in patients over 70 years has not been determined. Clinical correlation is essential. Serum or plasma urea nitroge n measurement (mass/volume)on 11-15-2022 Urea nitrogen [Mass/Vol] 16 mg/dL 7-18 [facility] Work Phone: Thin prep Papanicolaou smear with manual screeningon 11-15-2022 Thin prep Papanicolaou smear with manual screening 150 U/L 15-37 [facility] Work Phone: Thin prep Papanicolaou smear with manual screening -3 5-15 [facility] Work Phone: Vancomycin troughon 11-15-20 Vancomycin trough [Mass/Vol] 27.6 ug/mL 5.0-15.0 [facility] Work Phone: Comment on above: VANCOMYCIN STANDARED DRUG THERAPY TROUGH LEVEL: 5.0 - 15.0 mg/L VANCOMYCIN HIGH INTENSITY THERAPY TROUGH LEVEL: 15.0 - 20.0 mg/L High Intensity therapy recommended for serious lifethreatening infections include:- Uxolxsmfma-Hjamuvqvcnkd-Jikjftjku (Ventilator/Healtcare Associated)-Sepsis PLEASE CONTACT PHARMACY SERVICES (#[id number]) FOR INTERPRETATIONOF RESULTS. No Panel Informationon 08-07 Estimated GFR (MDRD) Amer 109 mL/min >60 [facility] Work Phone: Comment on above: GFR Calc Estimated GFR (MDRD) Non-Af Amer 90 mL/min >60 [facility] Work Phone: Comment on above: Non- GFR Calc Serum or plasma creatinine m easurement (mass/volume)on 08-07-2022 Creatinine [Mass/Vol] 1.04 mg/dL 0.70-1.30 [facility] Work Phone: Comment on above: The validity of the calculated GFR & GFRAA in patients over 70 years has not been determined. Clinical correlation is essential. Absolute lymphocyte counton 08-06-2022 Lymphocytes Auto (Unsp spec) [#/Vol] 1.83 10*3/uL 0.83-4.51 [facility] Work Phone: Automated blood hematocrit ( percentage)on 08-06-2022 Hematocrit (Bld) [Volume fraction] 34.3 % 40-54 [facility] Basophil percentageon 2021 Basophils/100 WBC (Bld) 1.6 % 0-1 [facility] Work Phone: Eosinophils/100 WBC (Bld) 7.9 % 0-5 [facility] Neutrophils (Bld) [#/Vol] 4.8 10*3/uL 2.0-7.7 [facility] Work Phone: Neutrophils/100 WBC (Bld) 57.5 % 47-70 [facility] WBC (Bld) [#/Vol] 8.4 10*3/uL 4.4-11.[address] [facility] Blood erythrocytes count (nu mber/volume)on 08-06-2022 RBC (Bld) [#/Vol] 3.67 10*6/uL 4.6-6.2 [facility] Work Phone: Blood hemoglobin measurement (mass/volume)on 08-06-2022 Hemoglobin (Bld) [Mass/Vol] 11.5 g/dL 13.0-16.5 [facility] Blood lymphocytes/100 leukoc yteson 08-06-2022 Lymphocytes/100 WBC (Bld) 21.9 % 19-41 [facility] Work Phone: Blood monocytes/100 leukocyt eson 08-06-2022 Monocytes/100 WBC (Bld) 10.6 % 0-10 [facility] Work Phone: Blood platelet mean volumeon 08-06-2022 Platelet mean volume (Bld) [Entitic vol] 8.8 fL 6.2-12.0 [facility] Work Phone: CBC W Auto Differential pane l (Bld)on 08-06-2022 Abs Neut (ANC) 4.8 K/uL 2 - 7.7 K/[facility]L [facility] Determination of erythrocyte mean corpuscular volume (MCV)on 08-06-2022 MCV (RBC) [Entitic vol] 93.5 fL 80-94 [facility] Work Phone: Laboratory - Hematology and Cell countson 08-06-2022 Erythrocyte distribution width (RBC) [Entitic vol] 43.7 fL 35.1-43.9 [facility] Work Phone: Erythrocyte distribution width (RBC) [Ratio] 12.6 % 11.6-14.6 [facility] Work Phone: Immature granulocytes/100 WBC (Bld) 0.500 % 0.0-0.9 [facility] Work Phone: Comment on above: IG% - Immature Granu locytes (promyelocytes, myelocytes and metamyelocytes) > 1% indicates that a LEFT SHIFT is Present. MCH (RBC) [Entitic mass] 31.3 pg 27.0-32.0 [facility] Work Phone: Nucleated RBC/100 WBC (Bld) [Ratio] 0 % 0-5 [facility] Work Phone: MCHC Auto (RBC) [Mass/Vol]on 08-06-2022 MCHC (RBC) [Mass/Vol] 33.5 g/dL 32-36 [facility] Work Phone: Platelets bldon 08-06-2022 Platelets (Bld) [#/Vol] 422 10*3/uL 150-450 [facility] VANCOMYCIN PRE DOSEon 2021 Vancomycin Pre 19.5 Abnormal 5 - 15 [facility] Vancomycin troughon 08-06-20 22 Vancomycin trough [Mass/Vol] 19.5 ug/mL 5.0-15.0 [facility] Work Phone: Comment on above: VANCOMYCIN STANDARED DRUG THERAPY TROUGH LEVEL: 5.0 - 15.0 mg/L VANCOMYCIN HIGH INTENSITY THERAPY TROUGH LEVEL: 15.0 - 20.0 mg/L High Intensity therapy recommended for serious lifethreatening infections include:- Ierkipmwin-Fsomvatigswd-Oyabviqix (Ventilator/Healtcare Associated)-Sepsis PLEASE CONTACT PHARMACY SERVICES (#[id number]) FOR INTERPRETATIONOF RESULTS. No Panel Informationon 07-25 [facility] C-REACTIVE PROTEIN (CRP)on 0 07-18-2022 CRP [Mass/Vol] 1.7 mg/dL High <0.9 mg/dL [facility] Comprehensive metabolic 2000 panelon 07-18-2022 Albumin [Mass/Vol] 2.8 g/dL Low 3.9 - 4.9 g/dL [facility] ALP [Catalytic activity/Vol] 1169 U/L High 38 - 113 U/L [facility] ALT [Catalytic activity/Vol] 20 U/L 10 - 54 U/L [facility] Anion gap [Moles/Vol] 7 mmol/L Low 9 - 18 mmol/L [facility] AST [Catalytic activity/Vol] 35 U/L 14 - 40 U/L [facility] Bilirubin [Mass/Vol] 1.0 mg/dL 0.2 - 1 .3 mg/dL [facility] Calcium [Mass/Vol] 8.7 mg/dL 8.5 - 10. 2 mg/dL [facility] Chloride [Moles/Vol] 95 mmol/L Low 97 - 10 5 mmol/L [facility] CO2 [Moles/Vol] 30 mmol/L 22 - 30 mmol/L [facility] Creatinine [Mass/Vol] 0.65 mg/dL Low 0.73 - 1.22 mg/dL [facility] Estimated Glomerular Filtration Rate 131 mL/min/1.73m >=60 mL/min/1.73m [facility] Glucose [Mass/Vol] 197 mg/dL High 74 - 99 mg/dL [facility] Potassium [Moles/Vol] 4.3 mmol/L 3.7 - 5.1 mmol/L [facility] Protein [Mass/Vol] 8.5 g/dL High 6.3 - 8.0 g/dL [facility] Sodium [Moles/Vol] 132 mmol/L Low 136 - 144 mmol/L [facility] Urea nitrogen [Mass/Vol] 12 mg/dL 9 - 24 mg/dL [facility] GGT [facility] 07-18-2022 Gamma glutamyl transferase [Catalytic activity/Vol] 1363 U/L High 10 - 70 U/L [facility] IGE [facility] 07-18-2022 IgE Qn 27.0 kU/l <114.0 kU/l [facility] CBC W Auto Differential pane l (Bld)on 2022 Abs Immature Gran <0.10 k/uL [facility] Basophils (Bld) [#/Vol] 0.07 10*3/uL <0.11 k/uL [facility] Basophils/100 WBC (Bld) 1.0 % [facility] Differential cell count method Nom (Bld) Auto [facility] Eosinophils (Bld) [#/Vol] 0.10 10*3/uL <0.46 k/uL [facility] Eosinophils/100 WBC (Bld) 1.4 % [facility] Erythrocyte distribution width (RBC) [Ratio] 13.2 % 11.5 - 15.0 % [facility] Hematocrit (Bld) [Volume fraction] 39.0 % 39.0 - 51.0 % [facility] Hemoglobin (Bld) [Mass/Vol] 12.8 g/dL Low 13.0 - 17.0 g/dL [facility] Immature Gran % 0.3 % [facility] Lymphocytes (Bld) [#/Vol] 0.91 10*3/uL Low 1.00 - 4.00 k/uL [facility] Lymphocytes/100 WBC (Bld) 12.6 % [facility] MCH (RBC) [Entitic mass] 31.0 pg 26.0 - 34.0 pg [facility] MCHC (RBC) [Mass/Vol] 32.8 g/dL 30.5 - 36.0 g/dL [facility] MCV (RBC) [Entitic vol] 94.4 fL 80.0 - 100.0 fL [facility] Monocytes (Bld) [#/Vol] 0.39 10*3/uL <0.87 k/uL [facility] Monocytes/100 WBC (Bld) 5.4 % [facility] Neutrophils (Bld) [#/Vol] 5.75 10*3/uL 1.45 - 7.50 k/uL [facility] Neutrophils/100 WBC (Bld) 79.3 % [facility] Nucleated RBC (Bld) [#/Vol] <0.01 k/uL [facility] Nucleated RBC/100 WBC (Bld) [Ratio] 0.0 /100 WBC [facility] Platelet mean volume (Bld) [Entitic vol] 9.2 fL 9.0 - 12.7 fL [facility] Platelets (Bld) [#/Vol] 232 10*3/uL 150 - 400 k/uL [facility] RBC (Bld) [#/Vol] 4.13 10*6/uL Low 4.20 - 6.0 0 m/uL [facility] WBC (Bld) [#/Vol] 7.24 10*3/uL 3.70 - 11. 00 k/uL [facility] HbA1c (Bld)on 2022 Average glucose Estimated from glycated hemoglobin (Bld) [Mass/Vol] 200 mg/dL [facility] HbA1c (Bld) [Mass fraction] 8.6 % High 4.3 - 5.6 % [facility] PT panel Coag (PPP)on 2021 INR Coag (PPP) [Relative time] 1.1 {INR} 0.9 - 1.3 [facility] PT Coag (PPP) [Time] 11.9 s 9.7 - 1 3.0 sec [facility] VITAMIN D 25 HYDROXYon 07-17 25-hydroxyvitamin D3 [Mass/Vol] 14.7 ng/mL Low 31.0 - 80.0 ng/mL [facility] .GFRon 05-14-2022 GFR >60 Normal Counts include 234 beds at the [facility] ([place]) Comment on above: Result Comment: GFR Population [...] Performed By: #### G FR, CMP #### [place] [address] GFR Non- >60 Normal [facility] ([place]) Comment on above: Result Comment: GFR Population [...] Performed By: #### Susan KAUR, CMP #### [address] [address] CMPon 05-14-2022 Albumin Level 1.9 G/dL Low 3.2-4.8 [facility] ([place]) Comment on above: Performed By: #### Susan KAUR, CMP #### [place] [id number] Albumin/Globulin [Mass ratio] 0.5 {ratio} Low 0.9-1.6 [facility] ([place]) Comment on above: Performed By: #### Susan KAUR, CMP #### [place] [id number] ALP [Catalytic activity/Vol] 881 U/L High 38-126 [facility] ([place]) Comment on above: Performed By: #### Susan KAUR, CMP #### [address] [address] ALT [Catalytic activity/Vol] 64 U/L High 12-55 [facility] ([place] Comment on above: Performed By: #### Susan KAUR, CMP #### [address] [address] AST [Catalytic activity/Vol] 182 U/L High 8-34 [facility] ([place] Comment on above: Performed By: #### Susan KAUR, CMP #### [address] [address] Bili Total 1.30 mg/dL High 0.20-1.20 [facility] ([place]) Comment on above: Result Comment: Use of this assay is not recommended for patients undergoing treatment with eltrombopag due to the potential for falsely elevated results. Performed By: #### Susan KAUR, CMP #### [place] [id number] BUN/Creatinine Ratio 22.1 ratio High 10.0-22.0 Counts include 234 beds at the [facility] ([place]) Comment on above: Performed By: #### G , CMP #### [address] [address] Calcium [Mass/Vol] 7.6 mg/dL Low 8.7-10.4 [facility] ([place]) Comment on above: Performed By: #### Susan KAUR, CMP #### [address] [address] Chloride [Moles/Vol] 107 mmol/L Normal 98-110 Counts include 234 beds at the [facility] ([place] Comment on above: Performed By: #### Susan KAUR, CMP #### [address] [address] CO2 [Moles/Vol] 26 mmol/L Normal 22-32 [facility] ([place]) Comment on above: Performed By: #### Susan KAUR, CMP #### [address] [address] Creatinine [Mass/Vol] 0.68 mg/dL Normal 0.60-1.40 [facility] ([place]) Comment on above: Performed By: #### Susan KAUR, CMP #### [address] [address] Electrolyte Balance 0.0 mEq/L Low 4.0-15.0 [facility] ([place]) Comment on above: Performed By: #### Susan KAUR, CMP #### [address] [address] Globulin 3.8 G/dL Normal 1.5-3.8 [facility] ([place]) Comment on above: Performed By: #### Susan KAUR, CMP #### [address] [address] Glucose [Mass/Vol] 226 mg/dL High 70-110 [facility] ([place]) Comment on above: Performed By: #### Susan KAUR, CMP #### [address] [address] Potassium [Moles/Vol] 4.1 mmol/L Normal 3.5-5.0 [facility] ([place]) Comment on above: Performed By: #### Susan KAUR, CMP #### [address] [place], [place] [address] Sodium [Moles/Vol] 133 mmol/L Low 136-145 [facility] ([place]) Comment on above: Performed By: #### G FR, CMP #### [address] [address] Total Protein 5.7 G/dL Normal 5.7-8.2 [facility] ([place]) Comment on above: Result Comment: No te - New Reference Range in effect 20 Performed By: #### G FR, CMP #### [address] [address] Urea nitrogen [Mass/Vol] 15.0 mg/dL Normal 8.0-22.0 [facility] ([place]) Comment on above: Performed By: #### G FR, CMP #### [address] [address] Glucose by meteron 2 Glucose [Mass/Vol] 190 mg/dL High 70 - 99 mg/dL [facility] Comment on above: Bedside glucose is a screening procedure. The bedside glucose strip is calibrated to deliver plasma glucose levels. Glucose meter values <45 mg/dl and >450 mg/dl must be confirmed with a plasma or whole blood glucose performed in the lab. Whole blood glucose results are 10-15% lower than plasma glucose results. Interpretation and review of laboratory results Abnormal [facility] Glucose [Mass/Vol] 130 mg/dL High 70 - 99 mg/dL [facility] Comment on above: Bedside glucose is a screening procedure. The bedside glucose strip is calibrated to deliver plasma glucose levels. Glucose meter values <45 mg/dl and >450 mg/dl must be confirmed with a plasma or whole blood glucose performed in the lab. Whole blood glucose results are 10-15% lower than plasma glucose results. Interpretation and review of laboratory results Abnormal [facility] Glucose [Mass/Vol] 87 mg/dL 70 - 99 mg/dL [facility] Comment on above: Bedside glucose is a screening procedure. The bedside glucose strip is calibrated to deliver plasma glucose levels. Glucose meter values <45 mg/dl and >450 mg/dl must be confirmed with a plasma or whole blood glucose performed in the lab. Whole blood glucose results are 10-15% lower than plasma glucose results. [facility] LABORATORYOrdered By: SYSTEM SYSTEM on 05-14-2022 [...] Basophil, Absolute 0.0 10 3/mcL Normal 0.0-0.3 Counts include 234 beds at the [facility] ([place]) Basophils/100 WBC (Bld) 0.2 % Normal 0.0-2.5 [facility]) Eosinophil, Absolute 0.1 10 3/mcL Normal 0.0-0.7 [facility]) Eosinophils/100 WBC (Bld) 2.2 % Normal 0.0-6.0 [facility]) Lymphocyte, Absolute 0.8 10 3/mcL Low 0.9-4.3 [facility]) Lymphocytes/100 WBC (Bld) 12.2 % Low 20.0-40.0 [facility]) Monocyte, Absolute 0.5 10 3/mcL Normal 0.1-1.4 [facility] Monocytes/100 WBC (Bld) 7.5 % Normal 2.0-13.0 [facility]) Neutrophils/100 WBC (Bld) 77.9 % High 50.0-75.0 [facility]) .MDWon 05-13-2022 Monocyte Distribution Width Not performed Normal 0.00-20.00 [facility] ([place]) Comment on above: Result Comment: MDW testing performed only on adult ER patients between the ages of 18-89 years. .NEUABSon 05-13-2022 Neutrophil, Absolute 5.3 10 3/mcL Normal 2.3-8.1 [facility] ([place]) CBCon 05-13-2022 Erythrocyte distribution width (RBC) [Ratio] 12.9 % Normal 11.5-15.5 [facility] ([place]) Hematocrit (Bld) [Volume fraction] 36.3 % Low 40.0-52.0 [facility] ([place] Hgb 12.8 G/dL Low 13.0-17.5 [facility] [place] MCH (RBC) [Entitic mass] 32.4 pg Normal 27.0-33.0 [facility]) MCHC 35.3 G/dL Normal 32.0-36.0 [facility] ([place]) MCV (RBC) [Entitic vol] 92.0 fL Normal 81.0-100.0 [facility]) Platelet 183 10 3/mcL Normal 150-450 [facility]) Platelet mean volume (Bld) [Entitic vol] 6.9 fL Normal 6.4-10.5 [facility]) RBC 3.95 10 6/mcL Low 4.50-6.00 [facility]) WBC 6.9 10 3/mcL Normal 4.5-10.8 [facility]) EKG 12 leadon 05-13-2022 [place] [facility] Test Date: 2022-05-12 Pat Name: JAY BARBER Department: ED Room: 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 : 1995 Requested By: [employer] Order Number: [id number] Edmond RUEDA: Nitin Best MD Measurements Intervals Critz Rate: 126 P: 76 MA: 143 QRS: 91 QRSD: 93 T: 52 QT: 318 QTc: 461 Interpretive Statements Sinus tachycardia Borderline right axis deviation Possible LVH Artifact ICD: I49.9 Cardiac Arrhythmia, unspecified Electronically Signed On 05-13-2022 9:53:55 EDT by Nitin Best MD PDF RESULT Nitin Best MD - 05/13/2022 [place] [facility] Test Date: 2022-05-12 Pat Name: JAY BARBER Department: ED Room: Gender: Male 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: [id number] : 1995 Requested By: [facility] Order Number: [id number] Reading MD: Nitin Best MD Measurements Intervals Critz Rate: 126 P: 76 MA: 143 QRS: 91 QRSD: 93 T: 52 QT: 318 QTc: 461 Interpretive Statements Sinus tachycardia Borderline right axis deviation Possible LVH Artifact ICD: I49.9 Cardiac Arrhythmia, unspecified Electronically Signed On 05-13-2022 9:53:55 EDT by Nitin Best MD [facility] EKG 12 leadOrdered By: Nitin Best on 05-13-2022 [facility] Work Phone: Glucose by meteron 2 Glucose [Mass/Vol] 166 mg/dL High 70 - 99 mg/dL [facility] Comment on above: Bedside glucose is a screening procedure. The bedside glucose strip is calibrated to deliver plasma glucose levels. Glucose meter values <45 mg/dl and >450 mg/dl must be confirmed with a plasma or whole blood glucose performed in the lab. Whole blood glucose results are 10-15% lower than plasma glucose results. Interpretation and review of laboratory results Abnormal [facility] Glucose [Mass/Vol] 209 mg/dL High 70 - 99 mg/dL [facility] Comment on above: Bedside glucose is a screening procedure. The bedside glucose strip is calibrated to deliver plasma glucose levels. Glucose meter values <45 mg/dl and >450 mg/dl must be confirmed with a plasma or whole blood glucose performed in the lab. Whole blood glucose results are 10-15% lower than plasma glucose results. Interpretation and review of laboratory results Abnormal [facility] Glucose [Mass/Vol] 177 mg/dL High 70 - 99 mg/dL [facility] Comment on above: Bedside glucose is a screening procedure. The bedside glucose strip is calibrated to deliver plasma glucose levels. Glucose meter values <45 mg/dl and >450 mg/dl must be confirmed with a plasma or whole blood glucose performed in the lab. Whole blood glucose results are 10-15% lower than plasma glucose results. Interpretation and review of laboratory results Abnormal [facility] Glucose [Mass/Vol] 79 mg/dL 70 - 99 mg/dL [facility] Comment on above: Bedside glucose is a screening procedure. The bedside glucose strip is calibrated to deliver plasma glucose levels. Glucose meter values <45 mg/dl and >450 mg/dl must be confirmed with a plasma or whole blood glucose performed in the lab. Whole blood glucose results are 10-15% lower than plasma glucose results. [facility] Glucose [Mass/Vol] 104 mg/dL High 70 - 99 mg/dL [facility] Comment on above: Bedside glucose is a screening procedure. The bedside glucose strip is calibrated to deliver plasma glucose levels. Glucose meter values <45 mg/dl and >450 mg/dl must be confirmed with a plasma or whole blood glucose performed in the lab. Whole blood glucose results are 10-15% lower than plasma glucose results. Interpretation and review of laboratory results Abnormal [facility] LABORATORYOrdered By: Nikkie Benítez on 05-13-2022 [...] SS UAon 05-13-2022 Color (U) Straw Normal [facility] ([place]) Comment on above: Performed By: #### U A #### [place] [address] Glucose (U) [Mass/Vol] Negative Normal Negative [facility] ([place]) Comment on above: Performed By: #### U A #### [place] [id number] Ketones Ql (U) Trace Normal Neg-Trace [facility] ([place]) Comment on above: Performed By: #### U A #### [place] [address] UA Appear Clear Normal Clear [facility] ([place]) Comment on above: Performed By: #### U A #### [address] [address] UA Blood Trace Normal Neg-Trace [facility] ([place]) Comment on above: Performed By: #### U A #### [address] [address] UA Leuk Est Negative Normal Negative [facility] ([place] Comment on above: Performed By: #### U A #### [address] [address] UA Nitrite Negative Normal Negative [facility] ([place] Comment on above: Performed By: #### U A #### [place] [id number] UA pH 6.0 Normal 5.0 - 8.0 [facility] ([place] Comment on above: Performed By: #### U A #### [place] [id number] UA Protein 30 mg/dL Normal Negative [facility] ([place] Comment on above: Performed By: #### U A #### [address] [address] UA Spec Grav 1.015 Normal 1.006-1.029 [facility] ([place] Comment on above: Performed By: #### U A #### [address] [address] UA Specimen Type Clean Catch Normal [facility] ([place]) Comment on above: Performed By: #### U A #### [address] [address] UA Urobilinogen 0.2 E.U./dL Normal 0.2-1.0 [facility] ([place] Comment on above: Performed By: #### U A #### [address] [address] Urobilinogen (U) [Mass/Vol] Negative Normal Neg-Trace [facility] ([place] Comment on above: Performed By: #### U A #### [address] [address] .GFRon 05-12-2022 GFR >60 Normal Counts include 234 beds at the [facility] ([place]) Comment on above: Result Comment: GFR Population [...] meters Performed By: #### G FR, CMP ####[address] [address] GFR Non- 55 ml/min/1.73sqm Normal [facility] ([place] Comment on above: Result Comment: GFR Population [...] meters Performed By: #### Susan KAUR, CMP ####[address] [address] CMPon 05-12-2022 Albumin Level 2.5 G/dL Low 3.2-4.8 [facility] ([place] Comment on above: Performed By: #### Susan KAUR, CMP #### [address] [address] Albumin/Globulin [Mass ratio] 0.5 {ratio} Low 0.9-1.6 [facility] ([place] Comment on above: Performed By: #### Susan KAUR, CMP #### [address] [address] ALP [Catalytic activity/Vol] 757 U/L High 38-126 [facility] ([place] Comment on above: Performed By: #### Susan KAUR, CMP #### [address] [address] ALT [Catalytic activity/Vol] 31 U/L Normal 12-55 [facility] ([place] Comment on above: Performed By: #### Susan KAUR, CMP #### [address] [address] AST [Catalytic activity/Vol] 43 U/L High 8-34 [facility] ([place]) Comment on above: Performed By: #### Susan KAUR, CMP #### [address] [address] Bili Total 0.70 mg/dL Normal 0.20-1.20 [facility] ([place]) Comment on above: Result Comment: Use of this assay is not recommended for patients undergoing treatment with eltrombopag due to the potential for falsely elevated results. Performed By: #### G FR, CMP #### [place] [id number] BUN/Creatinine Ratio 33.6 ratio High 10.0-22.0 Counts include 234 beds at the [facility] ([place]) Comment on above: Performed By: #### G FR, CMP #### [address] [address] Calcium [Mass/Vol] 7.8 mg/dL Low 8.7-10.4 [facility] ([place]) Comment on above: Performed By: #### G FR, CMP #### [address] [address] Chloride [Moles/Vol] 96 mmol/L Low 98-110 Counts include 234 beds at the [facility] ([place] Comment on above: Performed By: #### G FR, CMP #### [place] [id number] CO2 [Moles/Vol] 25 mmol/L Normal 22-32 [facility] ([place] Comment on above: Performed By: #### G FR, CMP #### [place] [id number] Creatinine [Mass/Vol] 1.52 mg/dL High 0.60-1.40 [facility] ([place]) Comment on above: Performed By: #### G FR, CMP #### [place] [id number] Electrolyte Balance 9.0 mEq/L Normal 4.0-15.0 [facility] ([place]) Comment on above: Performed By: #### G FR, CMP #### [address] [address] Globulin 4.7 G/dL High 1.5-3.8 [facility] ([place] Comment on above: Performed By: #### G FR, CMP #### [place] [id number] Glucose [Mass/Vol] 259 mg/dL High 70-110 [facility] ([place]) Comment on above: Performed By: #### G FR, CMP #### [address] [place], [place] [address] Potassium [Moles/Vol] 4.8 mmol/L Normal 3.5-5.0 [facility] ([place]) Comment on above: Performed By: #### G , CMP #### [address] [address] Sodium [Moles/Vol] 130 mmol/L Low 136-145 [facility] ([place]) Comment on above: Performed By: #### G , CMP #### [address] [address] Total Protein 7.2 G/dL Normal 5.7-8.2 [facility] ([place] Comment on above: Result Comment: No te - New Reference Range in effect 20 Performed By: #### G , CMP #### [address] [address] Urea nitrogen [Mass/Vol] 51.0 mg/dL High 8.0-22.0 [facility] ([place] Comment on above: Performed By: #### Susan KAUR, CMP #### [address] [address] Complete Blood Counton 05-12 Differential Complete Manual [facility] Erythrocyte distribution width (RBC) [Ratio] 13.3 % 0 - 14.4 % [facility] Hematocrit (Bld) [Volume fraction] 46.1 % 41 - 50 % [facility] Hemoglobin (Bld) [Mass/Vol] 16.2 g/dL 13.5 - 16.5 g/dl [facility] Immature granulocytes/100 WBC (Bld) 0.5 % [facility] Comment on above: Immature Granulocyte Percent includes promyelocytes, myelocytes, and metamyelocytes. IG% > 1.0 indicates a left shift is present. With automated differentials, bands are included in the neutrophil count and not in the Immature Granulocyte Percent. MCH (RBC) [Entitic mass] 31.6 pg 26 - 34 pg [facility] MCHC 35.1 % 31 - 37 % [facility] MCV (RBC) [Entitic vol] 90.0 fL 80 - 100 fl [facility] Nucleated RBC/100 WBC (Bld) [Ratio] 0 % -1 - 0 % [facility] Platelet mean volume (Bld) [Entitic vol] 9.6 fL [facility] Comment on above: MPV is platelet range and age dependent Platelets (Bld) [#/Vol] 303 10*3/uL [facility] RBC (Bld) [#/Vol] 5.12 10*6/uL [facility] WBC (Bld) [#/Vol] 20.8 10*3/uL High [facility] Comprehensive metabolic pane richard 05-12-2022 Albumin [Mass/Vol] 3.0 g/dL Low 3.5 - 5 g/dL [facility] ALP [Catalytic activity/Vol] 889 U/L High 40 - 129 U/L [facility] Comment on above: Hemolysis detected. Results may be falsely decreased. Interpret results with caution. ALT [Catalytic activity/Vol] 38 U/L 0 - 46 U/L [facility] Comment on above: Hemolysis detected. Results may be impacted variably as either falsely elevated or falsely decreased. Interpret results with caution. AST [Catalytic activity/Vol] 77 U/L High 0 - 37 U/L [facility] Comment on above: Hemolysis detected. Results may be falsely elevated. Interpret results with caution. Bilirubin [Mass/Vol] 1.0 mg/dL [facility] Calcium [Mass/Vol] 8.1 mg/dL 7.6 - 11 mg/dL [facility] Chloride [Moles/Vol] 88 mmol/L Low 96 - 10 8 mmol/L [facility] CO2 [Moles/Vol] 14.2 mmol/L Low 22 - 29 mmol/L [facility] Creatinine [Mass/Vol] 1.78 mg/dL High 0.7 - 1.2 mg/dL [facility] Glucose [Mass/Vol] 324 mg/dL High 70 - 99 mg/dL [facility] Comment on above: Criteria for Diagnos [...] mmol/L Critically high 3.3 - 5.1 mmol/L [facility] Comment on above: Hemolysis detected. Results may be falsely elevated. Interpret results with caution. Critical value called To and Read back by: [id number] Protein [Mass/Vol] 8.3 g/dL 5.9 - 8.4 g/dL [facility] Sodium [Moles/Vol] 131 mmol/L Low 133 - 145 mmol/L [facility] Urea nitrogen [Mass/Vol] 45 mg/dL High 4 - 19 mg/dL [facility] Glucose by meteron 2 Glucose [Mass/Vol] 369 mg/dL High 70 - 99 mg/dL [facility] Comment on above: Bedside glucose is a screening procedure. The bedside glucose strip is calibrated to deliver plasma glucose levels. Glucose meter values <45 mg/dl and >450 mg/dl must be confirmed with a plasma or whole blood glucose performed in the lab. Whole blood glucose results are 10-15% lower than plasma glucose results. Glucose [Mass/Vol] 334 mg/dL High 70 - 99 mg/dL [facility] Comment on above: Bedside glucose is a screening procedure. The bedside glucose strip is calibrated to deliver plasma glucose levels. Glucose meter values <45 mg/dl and >450 mg/dl must be confirmed with a plasma or whole blood glucose performed in the lab. Whole blood glucose results are 10-15% lower than plasma glucose results. Glucose [Mass/Vol] 427 mg/dL High 70 - 99 mg/dL [facility] Comment on above: Bedside glucose is a screening procedure. The bedside glucose strip is calibrated to deliver plasma glucose levels. Glucose meter values <45 mg/dl and >450 mg/dl must be confirmed with a plasma or whole blood glucose performed in the lab. Whole blood glucose results are 10-15% lower than plasma glucose results. Interpretation and review of laboratory results Abnormal [facility] LABORATORYOrdered By: Lola Bains on 05-12-2022 [...] 9 U/L Low 13 - 95 U/L [facility] Manual Differentialon 2021 % Metamyelocytes 0 % 0 - 0 % [facility] % Myelocytes 0 % 0 - 0 % [facility] % Promyelocytes 0 % 0 - 0 % [facility] Absolute Neutrophil No. 20.2 High [facility] Anisocytosis Slight [facility] Band Neutrophil 11 % 5 - 11 % [facility] Lymphocytes 3 % Low 24 - 44 % [facility] Poikilocytosis Slight [facility] Segmented Neutrophils 86 % High 35 - 66 % Lar [facility] No Panel Informationon 05-12 Interpretation and review of laboratory results Abnormal [facility] Interpretation and review of laboratory results Abnormal [facility] Release to patient->Automatic [facility] LAB [facility] Interpretation and review of laboratory results Abnormal [facility] Release to patient->Automatic [facility] LAB [facility] Potassium,WBon 05-12-2022 Interpretation and review of laboratory results Abnormal [facility] Potassium, WB 6.0 Critically high [facility] Release to patient->Automatic ACH LAB [facility] Respiratory Panel Film Array on 05-12-2022 Respiratory pathogens DNA and RNA panel PABLO+non-probe (Nph) See Below [facility] Comment on above: Source: NPH Collecte d: 05/12/22 09:55 Site: Nose Received : 05/12/22 11:42 Respiratory Panel Film Array FINAL 05/12/22 12:46 - NEGATIVE: No SARS-CoV-2 detected. NEGATIVE: No respiratory pathogens were detected. - The Film Array Respiratory Panel detects DNA or RNA for the following organisms: Adenovirus [id number] Coronavirus 229E Coronavirus HKU1 Coronavirus NL63 Coronavirus [...] history, and epidemiological information. - Method: The [employer] Respiratory Panel 2.1 (RP2.1) is a multiplexed nucleic acid test intended for the simultaneous qualitative detection and differentiation of nucleic acids from multiple viral and bacterial respiratory organisms, including nucleic acid from Severe Acute Respiratory Syndrome Coronavirus 2 (SARS-CoV-2). This test is FDA [place] authorized. [facility] 05-12-2022 Color (U) Yellow Normal [facility] ([place]) Comment on above: Performed By: #### U A #### [place] [address] Glucose (U) [Mass/Vol] 250 mg/dL Abnormal Negative [facility] ([place]) Comment on above: Performed By: #### U A #### [place] [address] Ketones Ql (U) 15 mg/dL Abnormal Neg-Trace [facility] ([place]) Comment on above: Performed By: #### U A #### [place] [address] UA Appear Clear Normal Clear [facility] ([place]) Comment on above: Performed By: #### U A #### [place] [address] UA Blood Trace Normal Neg-Trace [facility] ([place]) Comment on above: Performed By: #### U A #### [place] [address] UA Leuk Est Negative Normal Negative [facility] ([place]) Comment on above: Performed By: #### U A #### [place] [id number] UA Nitrite Negative Normal Negative [facility] ([place]) Comment on above: Performed By: #### U A #### [place] [address] UA pH 5.0 Normal 5.0 - 8.0 [facility] ([place] Comment on above: Performed By: #### U A #### [place] [address] UA Protein 30 mg/dL Normal Negative [facility] ([place]) Comment on above: Performed By: #### U A #### [place] [address] UA Spec Grav 1.015 Normal 1.006-1.029 [facility] ([place]) Comment on above: Performed By: #### U A #### [facility] [address] [place] [address] UA Specimen Type Clean Catch Normal [facility] ([place]) Comment on above: Performed By: #### U A #### [facility] [address] [place] [address] UA Urobilinogen 0.2 E.U./dL Normal 0.2-1.0 [facility] ([place]) Comment on above: Performed By: #### U A #### [facility] [address] [place] [address] Urobilinogen (U) [Mass/Vol] Negative Normal Neg-Trace [facility] ([place]) Comment on above: Performed By: #### U A #### [address] [address] XR Abdomen 2 Viewson IMPRESSION: There ar [...] has been created using voice recognition software [facility] CLINICAL HISTORY: abdominal pain, vomiting, concern for JOSE COMPARISON: 06/15/2019 TECHNIQUE: ABDOMEN 2 VIEWS [facility] Fredo Brady MD - 05/12/2022 CLINICAL [...] has been created using voice recognition software [facility] Radiology Study observation (narrative) [facility] XR Abdomen 2 ViewsOrdered By : Fredo Brady on 05-12-2022 [facility] Work Phone: XR CHEST 1 VIEWon 05-12-2022 XR CHEST 1 VIEW ORIGINAL Images acquired, not reported on this accession number. Normal [facility] ([place]) XR Chest Single viewon 05-12 IMPRESSION: There [...] has been created using voice recognition software [facility] CLINICAL HISTORY: CF pulmonary exacerbation COMPARISON: 06/15/2019, 03/19/2021, 12/06/2021, 01/14/2022 TECHNIQUE: CHEST AP ONLY [facility] Fredo Brady MD - 05/12/2022 CLINICAL [...] created using voice recognition software [facility] Radiology Study observation (narrative) [facility] Vital Signs Date Time Vital Sign Value Performing Clinician Facility 02-14-2025 14:02-0400 Body height 156.5 cm Stephie Ramirez APRN.CNP Work Phone: [facility] 02-14-2025 14:02-0400 Body mass index (BMI) [Ratio] 16.21 kg/m2 Stephie Ramirez APRN.CNP Work Phone: [facility] 02-14-2025 14:02-0400 Body weight 39.69 kg Stephie Ramirez APRN.ACID CLEANER Work Phone: [facility] 02-14-2025 14:02-0400 Diastolic blood pressure 83 mm[Hg] Stephie Ramirez MATERIAL DISPOSITION INSPECTOR.ACID CLEANER Work Phone: [facility] 02-14-2025 14:02-0400 Heart rate 85 /min Stephie Ramirez MATERIAL DISPOSITION INSPECTOR.ACID CLEANER Work Phone: [facility] 02-14-2025 14:02-0400 Systolic blood pressure 131 mm[Hg] Stephie Ramirez MATERIAL DISPOSITION INSPECTOR.ACID CLEANER Work Phone: [facility] 02-09-2025 10:22-0400 Body mass index (BMI) [Ratio] 15.73 kg/m2 Sally Buccecily MATERIAL DISPOSITION INSPECTOR.ACID CLEANER Work Phone: [facility] 02-09-2025 10:22-0400 Body temperature 98.2 [degF] Sally Bucur MATERIAL DISPOSITION INSPECTOR.ACID CLEANER Work Phone: [facility] 02-09-2025 10:22-0400 Body weight 38.5 kg Sally Bucur MATERIAL DISPOSITION INSPECTOR.ACID CLEANER Work Phone: [facility] 02-09-2025 10:22-0400 Diastolic blood pressure 61 mm[Hg] Sally Bucur MATERIAL DISPOSITION INSPECTOR.ACID CLEANER Work Phone: [facility] 02-09-2025 10:22-0400 Heart rate 97 /min Sally Bucur MATERIAL DISPOSITION INSPECTOR.ACID CLEANER Work Phone: [facility] 02-09-2025 10:22-0400 Respiratory rate 16 /min Sally Bucur MATERIAL DISPOSITION INSPECTOR.ACID CLEANER Work Phone: [facility] 02-09-2025 10:22-0400 SaO2% (BldA) [Mass fraction] 97 % Sally Bucur MATERIAL DISPOSITION INSPECTOR.ACID CLEANER Work Phone: [facility] 02-09-2025 10:22-0400 Systolic blood pressure 103 mm[Hg] Sally Bucur MATERIAL DISPOSITION INSPECTOR.ACID CLEANER Work Phone: [facility] 02-07-2025 10:36-0400 Body mass index (BMI) [Ratio] 15.89 kg/m2 Farrukh Gomes MD Work Phone: [facility] 02-07-2025 10:36-0400 Body temperature 100.2 [degF] Farrukh Gomes MD Work Phone: [facility] 02-07-2025 10:36-0400 Body weight 38.9 kg Farrukh Gomes MD Work Phone: [facility] 02-07-2025 10:36-0400 Diastolic blood pressure 82 mm[Hg] Farrukh Gomes MD Work Phone: [facility] 02-07-2025 10:36-0400 Heart rate 98 /min Farrukh Gomes MD Work Phone: [facility] 02-07-2025 10:36-0400 Respiratory rate 16 /min Farrukh Gomes MD Work Phone: [facility] 02-07-2025 10:36-0400 SaO2% (BldA) [Mass fraction] 95 % Farrukh Gomes MD Work Phone: [facility] 02-07-2025 10:36-0400 Systolic blood pressure 128 mm[Hg] Farrukh Gomes MD Work Phone: [facility] 01-05-2025 13:16-0500 Body height 156.5 cm Jean Pierre Kilgore MD Work Phone: [facility] 01-05-2025 13:16-0500 Body mass index (BMI) [Ratio] 16.63 kg/m2 Jean Pierre Kilgore MD Work Phone: [facility] 01-05-2025 13:16-0500 Body temperature 99 [degF] Jean Pierre Kilgore MD Work Phone: [facility] 01-05-2025 13:16-0500 Body weight 40.7 kg Jean Pierre Kilgore MD Work Phone: [facility] 01-05-2025 13:16-0500 Diastolic blood pressure 100 mm[Hg] Jean Pierre Kilgore MD Work Phone: [facility] 01-05-2025 13:16-0500 Heart rate 80 /min Jean Pierre Kilgore MD Work Phone: [facility] 01-05-2025 13:16-0500 Respiratory rate 18 /min Jean Pierre Kilgore MD Work Phone: [facility] 01-05-2025 13:16-0500 SaO2% (BldA) [Mass fraction] 95 % Jean Pierre Kilgore MD Work Phone: [facility] 01-05-2025 13:16-0500 Systolic blood pressure 160 mm[Hg] Jean Pierre Kilgore MD Work Phone: [facility] 10-12-2024 13:42-0500 Body height 157.5 cm Stephie Ramirez APRN.ACID CLEANER Work Phone: [facility] 10-12-2024 13:42-0500 Body mass index (BMI) [Ratio] 16.04 kg/m2 Stephie Ramirez APRN.ACID CLEANER Work Phone: [facility] 10-12-2024 13:42-0500 Body weight 39.78 kg Stephie Ramirez APRN.ACID CLEANER Work Phone: [facility] 10-12-2024 13:42-0500 Diastolic blood pressure 80 mm[Hg] Stephie Ramirez APRN.ACID CLEANER Work Phone: [facility] 10-12-2024 13:42-0500 Systolic blood pressure 136 mm[Hg] Stephie Ramirez APRN.ACID CLEANER Work Phone: [facility] 10-06-2024 12:08-0500 Body mass index (BMI) [Ratio] 15.28 kg/m2 Sally Schneider MATERIAL DISPOSITION INSPECTOR.ACID CLEANER Work Phone: [facility] 10-06-2024 12:08-0500 Body weight 37.9 kg Sally Schneider MATERIAL DISPOSITION INSPECTOR.ACID CLEANER Work Phone: [facility] 10-06-2024 12:08-0500 Diastolic blood pressure 86 mm[Hg] Sally Bucur MATERIAL DISPOSITION INSPECTOR.ACID CLEANER Work Phone: [facility] 10-06-2024 12:08-0500 Heart rate 79 /min Sally Bucur MATERIAL DISPOSITION INSPECTOR.ACID CLEANER Work Phone: [facility] 10-06-2024 12:08-0500 Respiratory rate 17 /min Sally Bucur MATERIAL DISPOSITION INSPECTOR.ACID CLEANER Work Phone: [facility] 10-06-2024 12:08-0500 SaO2% (BldA) [Mass fraction] 94 % Sally Bucur MATERIAL DISPOSITION INSPECTOR.ACID CLEANER Work Phone: [facility] 10-06-2024 12:08-0500 Systolic blood pressure 128 mm[Hg] Sally Bucur MATERIAL DISPOSITION INSPECTOR.ACID CLEANER Work Phone: [facility] 09-09-2024 12:05-0400 Body mass index (BMI) [Ratio] 15.44 kg/m2 Sally Bucur MATERIAL DISPOSITION INSPECTOR.ACID CLEANER Work Phone: [facility] 09-09-2024 12:05-0400 Body temperature 98.29 [degF] Sally Bucur MATERIAL DISPOSITION INSPECTOR.ACID CLEANER Work Phone: [facility] 09-09-2024 12:05-0400 Body weight 38.3 kg Sally Bucur MATERIAL DISPOSITION INSPECTOR.ACID CLEANER Work Phone: [facility] 09-09-2024 12:05-0400 Diastolic blood pressure 80 mm[Hg] Sally Bucur MATERIAL DISPOSITION INSPECTOR.ACID CLEANER Work Phone: [facility] 09-09-2024 12:05-0400 Heart rate 99 /min Sally Bucur MATERIAL DISPOSITION INSPECTOR.ACID CLEANER Work Phone: [facility] 09-09-2024 12:05-0400 Respiratory rate 18 /min Sally Bucur MATERIAL DISPOSITION INSPECTOR.ACID CLEANER Work Phone: [facility] 09-09-2024 12:05-0400 SaO2% (BldA) [Mass fraction] 93 % Sally Schneider MATERIAL DISPOSITION INSPECTOR.ACID CLEANER Work Phone: [facility] 09-09-2024 12:05-0400 Systolic blood pressure 130 mm[Hg] Sally Schneider APRN.ACID CLEANER Work Phone: [facility] 08-18-2024 13:25-0400 Body height 157.5 cm Jean Pierre Kilgore MD Work Phone: [facility] 08-18-2024 13:25-0400 Body mass index (BMI) [Ratio] 15.6 kg/m2 Jean Pierre Kilgore MD Work Phone: [facility] 08-18-2024 13:25-0400 Body temperature 98.01 [degF] Jean Pierre Kilgore MD Work Phone: [facility] 08-18-2024 13:25-0400 Body weight 38.7 kg Jean Pierre Kilgore MD Work Phone: [facility] 08-18-2024 13:25-0400 Diastolic blood pressure 88 mm[Hg] Jean Pierre Kilgore MD Work Phone: [facility] 08-18-2024 13:25-0400 Heart rate 90 /min Jean Pierre Kilgore MD Work Phone: [facility] 08-18-2024 13:25-0400 Respiratory rate 16 /min Jean Pierre Kilgore MD Work Phone: [facility] 08-18-2024 13:25-0400 SaO2% (BldA) [Mass fraction] 98 % Jean Pierre Kilgore MD Work Phone: [facility] 08-18-2024 13:25-0400 Systolic blood pressure 142 mm[Hg] Jean Pierre Kilgore MD Work Phone: [facility] 07-06-2024 13:37-0400 Body height 157.5 cm Stephie Ramirez APRN.ACID CLEANER Work Phone: [facility] 07-06-2024 13:37-0400 Body mass index (BMI) [Ratio] 17.1 kg/m2 Stephie Darrian BRO.ACID CLEANER Work Phone: [facility] 07-06-2024 13:37-0400 Body weight 42.41 kg Stephie Sortobruce RIZON.ACID CLEANER Work Phone: [facility] 07-06-2024 13:37-0400 Diastolic blood pressure 92 mm[Hg] Stephie Lundyartney MATERIAL DISPOSITION INSPECTOR.ACID CLEANER Work Phone: [facility] 07-06-2024 13:37-0400 Systolic blood pressure 156 mm[Hg] Stephie Lundyartney MATERIAL DISPOSITION INSPECTOR.ACID CLEANER Work Phone: [facility] 05-10-2024 11:23-0400 Body height 157.[address] Work Phone: [facility] 05-10-2024 11:23-0400 Body mass index (BMI) [Ratio] 17.38 kg/m2 Fernando Leatha RD Work Phone: [facility] 05-10-2024 11:23-0400 Body weight 43.[address] Work Phone: [facility] 05-05-2024 14:22-0400 Body mass index (BMI) [Ratio] 17.42 kg/m2 Jean Pierre Kilgore MD Work Phone: [facility] 05-05-2024 14:22-0400 Body weight 43.2 kg Jean Pierre Kilgore MD Work Phone: [facility] 05-05-2024 14:22-0400 Diastolic blood pressure 98 mm[Hg] Jean Pierre Kilgore MD Work Phone: [facility] 05-05-2024 14:22-0400 Heart rate 89 /min Jean Pierre Kilgore MD Work Phone: [facility] 05-05-2024 14:22-0400 Respiratory rate 18 /min Jean Pierre Kilgore MD Work Phone: [facility] 05-05-2024 14:22-0400 SaO2% (BldA) [Mass fraction] 96 % Jean Pierre Kilgore MD Work Phone: [facility] 05-05-2024 14:22-0400 Systolic blood pressure 153 mm[Hg] Jean Pierre Kilgore MD Work Phone: [facility] 04-07-2024 13:[id number] Body height 157.5 cm Tia Lindo MD Work Phone: [facility] 04-07-2024 13:29-0400 Body mass index (BMI) [Ratio] 17.34 kg/m2 Tia Lindo MD Work Phone: [facility] 04-07-2024 [id number] Body temperature 99.5 [degF] Tia Lindo MD Work Phone: [facility] 04-07-2024 [id number] Body weight 43 kg Tia Lindo MD Work Phone: [facility] 04-07-2024 13:29-0400 Diastolic blood pressure 78 mm[Hg] Tia Lindo MD Work Phone: [facility] 04-07-2024 13:290400 Heart rate 87 /min Tia Lindo MD Work Phone: [facility] 04-07-2024 13:29-0400 SaO2% (BldA) [Mass fraction] 97 % Tia Lindo MD Work Phone: [facility] 04-07-2024 13:29-0400 Systolic blood pressure 135 mm[Hg] Tia Lindo MD Work Phone: [facility] 03-09-2024 [id number] Body height 157.5 cm Stephie Ramirez APRN.CNP Work Phone: [facility] 03-09-2024 [id number] Body weight 41.01 kg Stephie Ramirez APRN.CNP Work Phone: [facility] 03-09-2024 13:26-0400 Diastolic blood pressure 76 mm[Hg] Stephie Ramirez APRN.CNP Work Phone: [facility] 03-09-2024 13:26-0400 Systolic blood pressure 128 mm[Hg] Stephie Ramirez APRN.ACID CLEANER Work Phone: [facility] 02-25-2024 15:20-0400 Body height 157.5 cm Jean Pierre Kilgore MD Work Phone: [facility] 02-25-2024 15:20-0400 Body mass index (BMI) [Ratio] 16.29 kg/m2 Jean Pierre Kilgore MD Work Phone: [facility] 02-25-2024 15:20-0400 Body temperature 98.49 [degF] Jean Pierre Kilgore MD Work Phone: [facility] 02-25-2024 15:20-0400 Body weight 40.4 kg Jean Pierre Kilgore MD Work Phone: [facility] 02-25-2024 15:20-0400 Diastolic blood pressure 80 mm[Hg] Jean Pierre Kilgore MD Work Phone: [facility] 02-25-2024 15:20-0400 Heart rate 84 /min Jean Pierre Kilgore MD Work Phone: [facility] 02-25-2024 15:20-0400 SaO2% (BldA) [Mass fraction] 95 % Jean Pierre Kilgore MD Work Phone: [facility] 02-25-2024 15:20-0400 Systolic blood pressure 126 mm[Hg] Jean Pierre Kilgore MD Work Phone: [facility] 09-24-2023 08:17-0400 Body height 160 cm She Pete DO Work Phone: [facility] 09-24-2023 08:17-0400 Body temperature 98.6 [degF] She Pete DO Work Phone: [facility] 09-24-2023 08:17-0400 Body weight 39.69 kg She Pete DO Work Phone: [facility] 09-24-2023 08:17-0400 Diastolic blood pressure 60 mm[Hg] She Pete DO Work Phone: [facility] 09-24-2023 08:17-0400 Heart rate 106 /min She Pete DO Work Phone: [facility] 09-24-2023 08:17-0400 SaO2% (BldA) [Mass fraction] 95 % She Pete DO Work Phone: [facility] 09-24-2023 08:17-0400 Systolic blood pressure 100 mm[Hg] She Pete DO Work Phone: [facility] 08-18-2023 11:20-0400 Body height 158 cm Fredo Masci DO Work Phone: [facility] 08-18-2023 11:20-0400 Body temperature 100.6 [degF] Fredo Masci DO Work Phone: [facility] 08-18-2023 11:20-0400 Body weight 37.65 kg Fredo Masci DO Work Phone: [facility] 08-18-2023 11:20-0400 Diastolic blood pressure 96 mm[Hg] Fredo Masci DO Work Phone: [facility] 08-18-2023 11:20-0400 Heart rate 125 /min Fredo Masci DO Work Phone: [facility] 08-18-2023 11:20-0400 SaO2% (BldA) [Mass fraction] 97 % Fredo Masci DO Work Phone: [facility] 08-18-2023 11:20-0400 Systolic blood pressure 147 mm[Hg] Fredo Masci DO Work Phone: [facility] 08-11-2023 13:34-0400 Body height 157.5 cm Stephie Ramirez APRN.ACID CLEANER Work Phone: [facility] 08-11-2023 13:34-0400 Body weight 39.96 kg Stephie Ramirez APRN.ACID CLEANER Work Phone: [facility] 08-11-2023 13:34-0400 Diastolic blood pressure 82 mm[Hg] Stephie Ramirez MATERIAL DISPOSITION INSPECTOR.ACID CLEANER Work Phone: [facility] 08-11-2023 13:34-0400 Systolic blood pressure 140 mm[Hg] Stephie Ramirez MATERIAL DISPOSITION INSPECTOR.ACID CLEANER Work Phone: [facility] 07-02-2023 13:04-0400 Body temperature 101.5 [degF] Sally Bucur MATERIAL DISPOSITION INSPECTOR.ACID CLEANER Work Phone: [facility] 07-02-2023 13:04-0400 Body weight 39.5 kg Sally Bucur MATERIAL DISPOSITION INSPECTOR.ACID CLEANER Work Phone: [facility] 07-02-2023 13:04-0400 Diastolic blood pressure 65 mm[Hg] Sally Bucur MATERIAL DISPOSITION INSPECTOR.ACID CLEANER Work Phone: [facility] 07-02-2023 13:04-0400 Heart rate 118 /min Sally Bucur MATERIAL DISPOSITION INSPECTOR.ACID CLEANER Work Phone: [facility] 07-02-2023 13:04-0400 Respiratory rate 16 /min Sally Bucur MATERIAL DISPOSITION INSPECTOR.ACID CLEANER Work Phone: [facility] 07-02-2023 13:04-0400 SaO2% (BldA) [Mass fraction] 92 % Sally Bucur MATERIAL DISPOSITION INSPECTOR.ACID CLEANER Work Phone: [facility] 07-02-2023 13:04-0400 Systolic blood pressure 110 mm[Hg] Sally Bucur MATERIAL DISPOSITION INSPECTOR.ACID CLEANER Work Phone: [facility] 06-04-2023 15:23-0400 Body height 158.5 cm Jean Pierre Kilgore MD Work Phone: [facility] 06-04-2023 15:23-0400 Body temperature 99 [degF] Jean Pierre Kilgore MD Work Phone: [facility] 06-04-2023 15:23-0400 Body weight 40.51 kg Jean Pierre Kilgore MD Work Phone: [facility] 06-04-2023 15:23-0400 Diastolic blood pressure 70 mm[Hg] Jean Pierre Kilgore MD Work Phone: [facility] 06-04-2023 15:23-0400 Heart rate 86 /min Jean Pierre Kilgore MD Work Phone: [facility] 06-04-2023 15:23-0400 Respiratory rate 19 /min Jean Pierre Kilgore MD Work Phone: [facility] 06-04-2023 15:23-0400 SaO2% (BldA) [Mass fraction] 98 % Jean Pierre Kilgore MD Work Phone: [facility] 06-04-2023 15:23-0400 Systolic blood pressure 110 mm[Hg] Jean Pierre Kilgore MD Work Phone: [facility] 04-07-2023 14:28-0400 Body height 157.5 cm Stephie Ramirez APRN.ACID CLEANER Work Phone: [facility] 04-07-2023 14:28-0400 Body weight 42.09 kg Stephie Ramirez APRN.ACID CLEANER Work Phone: [facility] 04-07-2023 14:28-0400 Diastolic blood pressure 78 mm[Hg] Stephie Ramirez APRN.ACID CLEANER Work Phone: [facility] 04-07-2023 14:28-0400 Systolic blood pressure 148 mm[Hg] Stephie Ramirez APRN.ACID CLEANER Work Phone: [facility] 04-01-2023 15:08-0400 Diastolic blood pressure 98 mm[Hg] [facility]str Work Phone: [facility] 04-01-2023 15:08-0400 Heart rate 96 /min Lab[facility]str Work Phone: [facility] 04-01-2023 15:08-0400 SaO2% (BldA) [Mass fraction] 100 % [facility]str Work Phone: [facility] 04-01-2023 15:08-0400 Systolic blood pressure 150 mm[Hg] [facility]str Work Phone: [facility] 03-20-2023 12:02-0400 Body height 157.[address] Work Phone: [facility] 03-20-2023 12:02-0400 Body weight 40.[address] Work Phone: [facility] 03-19-2023 15:50-0400 Body height 157.5 cm She Benninger DO Work Phone: [facility] 03-19-2023 15:50-0400 Body temperature 98.01 [degF] She Benninger DO Work Phone: [facility] 03-19-2023 15:50-0400 Body weight 41 kg She Benninger DO Work Phone: [facility] 03-19-2023 15:50-0400 Diastolic blood pressure 80 mm[Hg] She Benninger DO Work Phone: [facility] 03-19-2023 15:50-0400 Heart rate 85 /min She Benninger DO Work Phone: [facility] 03-19-2023 15:50-0400 Respiratory rate 18 /min She Benninger DO Work Phone: [facility] 03-19-2023 15:50-0400 SaO2% (BldA) [Mass fraction] 98 % She Benninger DO Work Phone: [facility] 03-19-2023 15:50-0400 Systolic blood pressure 140 mm[Hg] She Benninger DO Work Phone: [facility] 03-05-2023 15:59-0400 Body height 157.5 cm Jean Pierre Kilgore MD Work Phone: [facility] 03-05-2023 15:59-0400 Body temperature 98.01 [degF] Jean Pierre Kilgore MD Work Phone: [facility] 03-05-2023 15:59-0400 Body weight 39.4 kg Jean Pierre Kilgore MD Work Phone: [facility] 03-05-2023 15:59-0400 Diastolic blood pressure 90 mm[Hg] Jean Pierre Kilgore MD Work Phone: [facility] 03-05-2023 15:59-0400 Heart rate 105 /min Jean Pierre Kilgore MD Work Phone: [facility] 03-05-2023 15:59-0400 Respiratory rate 24 /min Jean Pierre Kilgore MD Work Phone: [facility] 03-05-2023 15:59-0400 SaO2% (BldA) [Mass fraction] 97 % Jean Pierre Kilgore MD Work Phone: [facility] 03-05-2023 15:59-0400 Systolic blood pressure 140 mm[Hg] Jean Pierre Kilgore MD Work Phone: [facility] 02-26-2023 14:09-0400 Body temperature 97.81 [degF] Jean Pierre Kilgore MD Work Phone: [facility] 02-26-2023 14:09-0400 Body weight 38.92 kg Jean Pierre Kilgore MD Work Phone: [facility] 02-26-2023 14:09-0400 Diastolic blood pressure 60 mm[Hg] Jean Pierre Kilgore MD Work Phone: [facility] 02-26-2023 14:09-0400 Heart rate 91 /min Jean Pierre Kilgore MD Work Phone: [facility] 02-26-2023 14:09-0400 Respiratory rate 19 /min Jean Pierre Kilgore MD Work Phone: [facility] 02-26-2023 14:09-0400 SaO2% (BldA) [Mass fraction] 97 % Jean Pierre Kilgore MD Work Phone: [facility] 02-26-2023 14:09-0400 Systolic blood pressure 118 mm[Hg] Jean Pierre Kilgore MD Work Phone: [facility] 12-20-2022 12:59-0500 Body height 157.5 cm Stephie Ramirez APRN.ACID CLEANER Work Phone: [facility] 12-20-2022 12:59-0500 Body weight 40.55 kg Stephie Ramirez APRN.ACID CLEANER Work Phone: [facility] 12-20-2022 12:59-0500 Diastolic blood pressure 80 mm[Hg] Stephie Ramirez APRN.ACID CLEANER Work Phone: [facility] 12-20-2022 12:59-0500 Systolic blood pressure 142 mm[Hg] Stephie Ramirez APRN.ACID CLEANER Work Phone: [facility] 12-05-2022 15:11-0500 Body temperature 97.5 [degF] [facility] Work Phone: 12-05-2022 15:11-0500 Diastolic blood pressure 97 mm[Hg] [facility] Work Phone: 12-05-2022 15:11-0500 Heart rate 92 /min [facility] Work Phone: 12-05-2022 15:11-0500 Respiratory rate 14 /min [facility] Work Phone: 12-05-2022 15:11-0500 SaO2% (BldA) [Mass fraction] 98 % [facility] Work Phone: 12-05-2022 15:11-0500 Systolic blood pressure 138 mm[Hg] [facility] Work Phone: 12-04-2022 15:38-0500 Body height 157.5 cm Jean Pierre Kilgore MD Work Phone: [facility] 12-04-2022 15:38-0500 Body temperature 99.39 [degF] Jean Pierre Kilgore MD Work Phone: [facility] 12-04-2022 15:38-0500 Body weight 40.61 kg Jean Pierre Kilgore MD Work Phone: [facility] 12-04-2022 15:38-0500 Diastolic blood pressure 90 mm[Hg] Jean Pierre Kilgore MD Work Phone: [facility] 12-04-2022 15:38-0500 Heart rate 100 /min Jean Pierre Kilgore MD Work Phone: [facility] 12-04-2022 15:38-0500 Respiratory rate 19 /min Jean Pierre Kilgore MD Work Phone: [facility] 12-04-2022 15:38-0500 SaO2% (BldA) [Mass fraction] 96 % Jean Pierre Kilgore MD Work Phone: [facility] 12-04-2022 15:38-0500 Systolic blood pressure 140 mm[Hg] Jean Pierre Kilgore MD Work Phone: [facility] 11-20-2022 08:19-0500 Body height 157.5 cm She Benninger DO Work Phone: [facility] 11-20-2022 08:19-0500 Body temperature 98.8 [degF] She Benninger DO Work Phone: [facility] 11-20-2022 08:19-0500 Body weight 39.3 kg She Benninger DO Work Phone: [facility] 11-20-2022 08:19-0500 Diastolic blood pressure 80 mm[Hg] She Benninger DO Work Phone: [facility] 11-20-2022 08:19-0500 Heart rate 100 /min She Benninger DO Work Phone: [facility] 11-20-2022 08:19-0500 Respiratory rate 16 /min She Benninger DO Work Phone: [facility] 11-20-2022 08:19-0500 SaO2% (BldA) [Mass fraction] 95 % She Benninger DO Work Phone: [facility] 11-20-2022 08:19-0500 Systolic blood pressure 118 mm[Hg] She Benninger DO Work Phone: [facility] 09-11-2022 08:47-0400 Body height 157.5 cm She Benninger DO Work Phone: [facility] 09-11-2022 08:47-0400 Body temperature 98.8 [degF] She Hunterninger DO Work Phone: [facility] 09-11-2022 08:47-0400 Body weight 41.59 kg She Bether DO Work Phone: [facility] 09-11-2022 08:47-0400 Diastolic blood pressure 103 mm[Hg] She Daleninger DO Work Phone: [facility] 09-11-2022 08:47-0400 Heart rate 95 /min She Bether DO Work Phone: [facility] 09-11-2022 08:47-0400 SaO2% (BldA) [Mass fraction] 98 % She Bether DO Work Phone: [facility] 09-11-2022 08:47-0400 Systolic blood pressure 153 mm[Hg] She Benninger DO Work Phone: [facility] 08-09-2022 09:55-0400 Body height 157 cm Sally Bucur MATERIAL DISPOSITION INSPECTOR.ACID CLEANER Work Phone: [facility] 08-09-2022 09:55-0400 Body temperature 99.1 [degF] Sally Bucur MATERIAL DISPOSITION INSPECTOR.ACID CLEANER Work Phone: [facility] 08-09-2022 09:55-0400 Body weight 39.4 kg Sally Bucur MATERIAL DISPOSITION INSPECTOR.ACID CLEANER Work Phone: [facility] 08-09-2022 09:55-0400 Diastolic blood pressure 60 mm[Hg] Sally Bucur MATERIAL DISPOSITION INSPECTOR.ACID CLEANER Work Phone: [facility] 08-09-2022 09:55-0400 Heart rate 95 /min Sally Bucur MATERIAL DISPOSITION INSPECTOR.ACID CLEANER Work Phone: [facility] 08-09-2022 09:55-0400 Respiratory rate 17 /min Sally Bucur MATERIAL DISPOSITION INSPECTOR.ACID CLEANER Work Phone: [facility] 08-09-2022 09:55-0400 SaO2% (BldA) [Mass fraction] 98 % Sally Bucur MATERIAL DISPOSITION INSPECTOR.ACID CLEANER Work Phone: [facility] 08-09-2022 09:55-0400 Systolic blood pressure 110 mm[Hg] Sally Bucur MATERIAL DISPOSITION INSPECTOR.ACID CLEANER Work Phone: [facility] 2022 09:31-0400 Body height 157.5 cm She Benninger DO Work Phone: [facility] 2022 09:31-0400 Body temperature 99.5 [degF] She Benninger DO Work Phone: [facility] 2022 09:31-0400 Body weight 38.42 kg She Benninger DO Work Phone: [facility] 2022 09:31-0400 Diastolic blood pressure 76 mm[Hg] She Benninger DO Work Phone: [facility] 2022 09:31-0400 Heart rate 117 /min She Daleninger DO Work Phone: [facility] 2022 09:31-0400 SaO2% (BldA) [Mass fraction] 96 % She Benninger DO Work Phone: [facility] 2022 09:31-0400 Systolic blood pressure 138 mm[Hg] She Benninger DO Work Phone: [facility] 05-14-2022 09:40-0400 Heart rate 80 /min Sabina Larios MD Work Phone: [facility] 05-14-2022 09:40-0400 Respiratory rate 20 /min Sabina Larios MD Work Phone: [facility] 05-14-2022 09:40-0400 SaO2% (BldA) [Mass fraction] 95 % Sabina Larios MD Work Phone: [facility] 05-14-2022 09:20-0400 Body temperature 98.4 [degF] Sabina Larios MD Work Phone: [facility] 05-14-2022 09:20-0400 Diastolic blood pressure 85 mm[Hg] Sabina Larios MD Work Phone: [facility] 05-14-2022 09:20-0400 Systolic blood pressure 144 mm[Hg] Sabina Larios MD Work Phone: [facility] 05-14-2022 02:20-0400 Body height 152 cm CURTIS CISNEROS MD [facility] 05-14-2022 02:20-0400 Body weight 37.9 kg CURTIS CISNEROS MD [facility] 05-14-2022 02:20-0400 Body weight 16.4 kg/m2 CURTIS CISNEROS MD [facility] 05-13-2022 01:23-0400 Body height 152 cm CURTIS CISNEROS MD [facility] 05-13-2022 01:23-0400 Body weight 16.4 kg/m2 CURTIS CISNEROS MD [facility] 05-13-2022 01:23-0400 Body weight 37.9 kg CURTIS CISNEROS MD [facility] 05-12-2022 16:10-0400 Body mass index (BMI) [Ratio] 16.4 kg/m2 Sabina Larios MD Work Phone: [facility] 05-12-2022 16:10-0400 Body weight 37.9 kg Sabina Larios MD Work Phone: [facility] Encounters Encounter Date Encounter Type Care Provider Facility Start: 04-26-2025 End: 04-26-2025 Orders Only Sally Schneider APRN.ACID CLEANER Work Phone: Pulmonary Medicine Comment on above: Cystic fibrosis (HCC ) (Primary Dx) Start: 04-15-2025 End: 04-15-2025 ambulatory FERNANDO ZHANG Facility:[facility] Start: 04-07-2025 End: 04-08-2025 Orders Only Fernando Zhang RD Work Phone: Pulmonary Medicine Comment on above: Cystic fibrosis with pulmonary manifestations (HCC) (Primary Dx) Refill Request Start: 04-06-2025 End: 04-06-2025 Telephone encounter Sally Schneider APRN.ACID CLEANER Work Phone: Pulmonary Medicine Comment on above: Planning Specialist - O ther ([facility]) Start: 04-06-2025 End: 04-06-2025 ambulatory JEAN PIERRE KILGORE Facility:[facility] Start: 04-04-2025 End: 04-04-2025 Chart abstracting Fernando Zhang RD Work Phone: Pulmonary Medicine Comment on above: Abstract Cystic fibrosis (HCC ) (Primary Dx) Start: 03-18-2025 End: 03-18-2025 Telephone encounter Varsha LIVE Pulmonary Medicine Comment on above: Prior Authorization Start: 02-15-2025 End: 02-18-2025 Follow-up encounter Sally Schneider APRN.ACID CLEANER Work Phone: Pulmonary Medicine Start: 02-14-2025 End: 02-14-2025 Patient encounter procedure Stephie Ramirez APRN.ACID CLEANER Work Phone: [facility] Endocrinology Comment on above: Type 1 diabetes ximena itus with hyperglycemia (HCC) (Primary Dx); 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 Start: 02-10-2025 End: 02-14-2025 Follow-up encounter Sally Schneider APRN.CNP Work Phone: Pulmonary Medicine Start: 02-09-2025 End: 02-09-2025 ambulatory [facility] Facility:[facility] Start: 02-09-2025 End: 02-09-2025 ambulatory [facility] Pulmonary Medicine Comment on above: [...] 02-08-2025 End: 04-10-2025 Follow-up encounter Anabel Smart APRN.ACID CLEANER Work Phone: [facility] Start: 02-08-2025 End: 02-08-2025 ambulatory [facility] Facility:[facility] Start: 02-07-2025 End: 02-07-2025 Telephone encounter Zaida Santos RN Work Phone: Pulmonary Medicine Start: 02-07-2025 End: 02-07-2025 Subsequent hospital visit by physician Brisa [facility] Work Phone: Radiology Comment on above: Subacute cough [R05. 2] Start: 02-07-2025 End: 02-07-2025 ambulatory FARRUKH GOMES Facility:[facility] Start: 02-07-2025 End: 02-07-2025 Office outpatient visit 25 minutes Farrukh Gomes MD Work Phone: [facility] Comment on above: Sore throat (Primary Dx); Subacute cough; Fever, unspecified fever cause; Cystic fibrosis (HCC) Start: 02-01-2025 End: 02-01-2025 [facility] Start: 02-01-2025 End: 02-01-2025 Subsequent hospital visit by physician Xr [facility] Work Phone: Radiology Comment on above: Cystic fibrosis with pulmonary manifestations (HCC) [E84.0] Start: 01-31-2025 End: 01-31-2025 ambulatory Sally Bucur MATERIAL DISPOSITION INSPECTORINÉS Work Phone: Pulmonary Medicine Comment on above: Fever and coughing Start: 01-07-2025 End: 01-07-2025 ambulatory JEAN PIERRE KILGORE Facility:[facility] Start: 01-05-2025 End: 01-05-2025 Office outpatient visit 40 minutes Jean Pierre Kilgore MD Work Phone: Pulmonary Medicine Comment on above: Cystic fibrosis with pulmonary manifestations (HCC) (Primary Dx); 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) Start: 01-05-2025 End: 01-05-2025 ambulatory JEAN PIERRE KILGORE Pulmonary Medicine Comment on above: Spirometry Start: 01-05-2025 End: 01-05-2025 Patient encounter procedure Pulm Lab [facility] Work Phone: Pulmonary Medicine Start: 12-30-2024 End: 12-30-[address] Work Phone: Pulmonary Medicine Start: 12-30-2024 End: 12-30-2024 Chart abstracting Fernando Zhang RD Work Phone: Pulmonary Medicine Comment on above: Abstract Start: 11-16-2024 End: 11-16-2024 Telephone encounter Fernando Zhang RD Work Phone: Pulmonary Medicine Start: 10-14-2024 End: 10-14-2024 Telephone encounter Stephie Ramirez APRN.ACID CLEANER Work Phone: [facility] Comment on above: Results Start: 10-12-2024 End: 10-12-2024 Patient encounter procedure Stephie Ramirez APRN.ACID CLEANER Work Phone: [facility] Comment on above: Type 1 diabetes ximena itus with hyperglycemia (HCC) (Primary Dx); 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 Start: 10-11-2024 End: 10-11-2024 Telephone encounter Zaida Santos RN Work Phone: Pulmonary Medicine Start: 10-06-2024 End: 10-07-2024 ambulatory [facility] Pulmonary Medicine Comment on above: Spirometry Start: 10-06-2024 End: 10-06-2024 Patient encounter procedure Pulm Fct Lab 2 - A110 Work Phone: Pulmonary Medicine Comment on above: Cystic fibrosis (HCC ) (Primary Dx) Start: 10-04-2024 End: 10-04-2024 Chart abstracting Fernando Zhang RD Work Phone: Pulmonary Medicine Start: 09-28-2024 End: 09-28-2024 Telephone encounter Fernando Zhang RD Work Phone: Pulmonary Medicine Comment on above: Planning Specialist - O ther Start: 09-27-2024 End: 09-27-2024 Orders Only Fernando Zhang RD Work Phone: Pulmonary Medicine Comment on above: Cystic fibrosis (HCC ) (Primary Dx) Start: 09-23-2024 End: 09-27-2024 ambulatory Sally Bucur MATERIAL DISPOSITION INSPECTOR.ACID CLEANER Work Phone: Pulmonary Medicine Comment on above: Nebulizers and BP me ds Start: 09-16-2024 End: 09-16-2024 Orders Only Varsha LIVE Pulmonary Medicine Comment on above: Cystic fibrosis with pulmonary manifestations (HCC) (Primary Dx); Hyperkalemia Start: 09-15-2024 End: 09-16-2024 Refill Nell Lozano [facility] Pulmonary Medicine Comment on above: Refill Request Patient Update (PICC Line Pulled at [facility]) Start: 09-13-2024 End: 09-13-2024 ambulatory [facility] Facility:[facility] Start: 09-10-2024 End: 09-10-2024 Telephone encounter Zaida Santos RN Work Phone: Pulmonary Medicine Start: 09-10-2024 End: 09-10-2024 ambulatory [facility] Facility:[facility] Start: 09-09-2024 End: 09-09-2024 ambulatory Pulm Fct [...] fibrosis (HCC) (HCC) Start: 09-08-2024 End: 09-08-2024 [facility] Facility:[facility] Start: 09-07-2024 End: 09-07-2024 [facility] Facility:[facility] Start: 09-03-2024 End: 09-03-2024 Chart abstracting Zaida Santos RN Work Phone: Pulmonary Medicine Start: 09-03-2024 End: 09-03-2024 Telephone encounter Sally Schneider APRN.CNP Work Phone: Pulmonary Medicine Comment on above: Received Outside Med ical Records Start: 09-03-2024 End: 09-03-2024 ambulatory [facility] Facility:[facility] Start: 09-02-2024 End: 09-02-2024 Telephone encounter Zaida Santos RN Work Phone: Pulmonary Medicine Start: 09-01-[address] [facility] Facility:[facility] Start: 09-01-2024 End: 09-01-2024 Telephone encounter Sally Schneider MATERIAL DISPOSITION INSPECTOR.ACID CLEANER Work Phone: Pulmonary Medicine Start: 09-01-2024 End: 09-01-2024 ambulatory [facility] Facility:[facility] Start: 08-31-2024 End: 09-02-[address] [facility] Facility:[facility] Start: 08-31-2024 End: 08-31-2024 Telephone encounter Sally Buccecily MATERIAL DISPOSITION INSPECTOR.ACID CLEANER Work Phone: Pulmonary Medicine Comment on above: Critical Results Planning Specialist - O ther Start: 08-31-2024 End: 08-31-2024 [facility] Facility:[facility] Start: 08-30-2024 End: 08-30-2024 ambulatory Sally Jennie MATERIAL DISPOSITION INSPECTOR.ACID CLEANER Work Phone: Pulmonary Medicine Comment on above: Kayexalate Start: 08-27-2024 End: 08-27-2024 Orders Only Zaida Santos RN Work Phone: Pulmonary Medicine Comment on above: Hyperkalemia (Primar y Dx); Cystic fibrosis (HCC) Start: 08-25-2024 End: 08-25-2024 Telephone encounter Varsha LIVE Pulmonary Medicine Comment on above: Medication Problem ( Vanco timing) Planning Specialist - O ther Start: 08-23-2024 End: 08-23-2024 ambulatory [facility] Facility:[facility] Start: 08-20-2024 End: 08-20-2024 Chart abstracting Zaida Santos RN Work Phone: Pulmonary Medicine Start: 08-19-2024 End: 08-19-2024 Telephone encounter Zaida Santos RN Work Phone: Pulmonary Medicine Comment on above: Follow Up Phone Call ; Planning Specialist - Other Start: 08-19-2024 End: 08-19-2024 Patient encounter procedure Picc Nurse [facility] P[facility] Comment on above: Cystic fibrosis with pulmonary exacerbation (HCC); 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 Start: 08-19-2024 End: 08-19-2024 ambulatory JEAN PIERRE KILGORE Facility:[facility] Start: 08-18-2024 End: 08-18-2024 ambulatory JEAN PIERRE KILGORE Facility:[facility] Start: 08-18-2024 End: 08-18-2024 Office outpatient visit [...] End: 08-18-2024 Patient encounter procedure Pulm Lab [facility] Work Phone: Pulmonary Medicine Start: 08-12-2024 End: [...] 07-16-2024 End: 07-16-2024 ambulatory JEAN PIERRE KILGORE Facility:[facility] Start: 07-06-2024 End: 07-06-2024 Patient encounter procedure Stephie Ramirez APRN.ACID CLEANER Work Phone: [facility] Endocrinology Comment on above: Type 1 diabetes ximena itus with hyperglycemia (HCC) (Primary Dx) Start: 07-06-2024 End: 07-06-2024 ambulatory STEPHIE RAMIREZ Facility:[facility] Start: 07-05-2024 Chart abstracting Stephie Ramirez APRN.ACID CLEANER Work Phone: [facility] Endocrinology Start: 05-15-2024 Refill Tia Lino Work Phone: Gastroenterology Comment on above: Refill Request Start: 05-10-2024 Orders Only Fernando Zhang RD Work Phone: Pulmonary Medicine Comment on above: Cystic fibrosis (HCC ) (Primary Dx); 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); 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) Start: 05-07-2024 End: 05-07-2024 ambulatory MONO Shereen HOROCIO Facility:[facility] Start: 05-07-2024 End: 05-07-2024 Subsequent hospital visit by physician Mri Radio [facility] (I-Stat/1.5t) Work Phone: Radiology Comment [...] End: 03-09-2024 Patient encounter procedure Stephie Ramirez APRN.ACID CLEANER Work Phone: [facility] Endocrinology Comment on above: Type 1 diabetes ximena itus with hyperglycemia (HCC) (Primary Dx) Start: 03-09-2024 End: 03-09-2024 ambulatory STEPHIE RAMIREZ Facility:[facility] Start: 03-08-2024 ambulatory Zaida kumari RN Work Phone: Pulmonary Medicine Comment on above: Lab work tomorrow Start: 03-08-2024 E-mail encounter fro m caregiver Zaida Santos RN Work Phone: [facility] Start: 03-02-2024 End: 03-02-2024 ambulatory Lab/[place] [facility] Work Phone: Hematology/Oncology Comment on above: Cystic fibrosis with pulmonary exacerbation (HCC) (Primary Dx) Start: 03-01-2024 Telephone encounter Sally castillo MATERIAL DISPOSITION INSPECTOR.ACID CLEANER Work Phone: Pulmonary Medicine Comment on above: Patient Question Start: 02-28-2024 Refill Stephie Ramirez APRN.ACID CLEANER Work Phone: [facility] Endocrinology Comment on above: Refill Request Start: [...] Start: 02-24-2024 End: 02-24-2024 Patient encounter procedure [facility] Work Phone: Start: 02-20-2024 Telephone [...] 02-17-2024 ambulatory Jasmyn Bailon MD Work Phone: [facility] Work Phone: Comment on above: Outside Lab Results Start: 02-17-2024 Telephone encounter Randall MARTINS Comment on above: Follow Up Phone Call (RC f/u all clear/) Start: 02-17-2024 End: 02-17-2024 Patient encounter procedure [facility] Work Phone: Start: 02-16-2024 Orders Only Fernando Zhang RD Work Phone: Pulmonary Medicine Comment on above: Pancreatic insuffici ency due to cystic fibrosis (HCC) (HCC) (Primary Dx) [employer] Start: 02-16-2024 End: 02-16-2024 Evaluation and management of inpatient Demetrice Storm DO Work Phone: Pulmonary Medicine Comment on above: Recheck Start: 02-15-2024 Telephone encounter Ivet atkinson MD Work Phone: Internal [facility] [place] Comment on above: Hospital F/U (/) Start: [...] vancomycin) Start: 02-03-2024 Telephone encounter Sally castillo APRN.ACID CLEANER Work Phone: Pulmonary Medicine Comment on above: Patient Update Start: 01-02-2024 Chart abstracting Fernando guveara RD Work Phone: Pulmonary Medicine Comment on above: Cystic fibrosis (HCC ) (Primary Dx); 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); 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); Dietary counseling and surveillance; Vitamin D deficiency Start: 12-28-2023 Refill Stephie Ramirez APRN.ACID CLEANER Work Phone: [facility] Endocrinology Comment on above: Refill Request Start: 11-20-2023 Chart abstracting Stephie Ramirez APRN.ACID CLEANER Work Phone: [facility] Endocrinology Start: 11-13-2023 Orders Only Fernando Zhang RD Work Phone: Pulmonary Medicine Comment on above: Cystic fibrosis (HCC ) (Primary Dx) Start: 11-12-2023 Social Work Varsha LIVE Pulm onvarina Medicine Start: 11-07-2023 Chart abstracting Zaida viera [...] Subsequent hospital visit by physician [facility] [place] [facility] Comment on [...] Start: 08-21-2023 Telephone encounter Sally Dima castillo MATERIAL DISPOSITION INSPECTOR.ACID CLEANER Work Phone: Pulmonary Medicine Start: 08-20-2023 Telephone encounter Fredo Chapman Venancio simone DO Work Phone: Hematology/Oncology Comment on above: Results Start: 08-18-2023 End: 08-18-2023 ambulatory Fredo Moreno DO Work Phone: Hematology/Oncology Comment on above: 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 Start: 08-06-2023 Telephone encounter Varsha MARIA Pulmonary Medicine Comment on above: Planning Specialist - O ther (Medical records and DAVID.) Start: 08-02-2023 ambulatory She felix DO Work Phone: Pulmonary Medicine Comment on above: Potassium and kidney Start: 08-01-2023 Orders Only Nell ARMANDO Pul onary Medicine Comment on above: Osteoporosis without current pathological fracture, unspecified osteoporosis type (Primary Dx) Start: 07-30-2023 Refill Sally Bucur MATERIAL DISPOSITION INSPECTOR.ACID CLEANER Work Phone: Pulmonary Medicine Comment on above: Refill Request Start: 07-24-2023 End: 07-24-2023 Evaluation and management of inpatient Pulm Fct Lab J-2 Pulmonary Medicine Comment on above: Cystic fibrosis (HCC ) (Primary Dx) Start: 2023 ambulatory Sally Bucur MATERIAL DISPOSITION INSPECTOR.ACID CLEANER Work Phone: Pulmonary Medicine Comment on above: [...] Fct Lab 1 - A110 Work Phone: [facility] Comment on above: Cystic fibrosis [...] Work Phone: Pulmonary Medicine Comment on above: [facility] Start: 06-04-2023 End: 06-04-2023 Office outpatient visit 25 minutes Jean Pierre Kilgore MD Work Phone: Pulmonary Medicine Comment on above: Cystic fibrosis with pulmonary manifestations (HCC) (Primary Dx) Start: 06-04-2023 End: 06-04-2023 ambulatory [place] Work Phone: Pulmonary Medicine Comment on above: Spirometry Start: 06-04-2023 End: 06-04-2023 Patient encounter procedure Pulm Lab [place] Work Phone: [place] [facility] Start: 06-02-2023 End: 06-02-2023 Subsequent hospital visit by physician Xr [facility] Zimmer Work Phone: Radiology Comment on above: Cystic fibrosis (HCC ) [E84.9] Start: 06-02-2023 Chart abstracting Sally jones APRN.ACID CLEANER Work Phone: Pulmonary Medicine Start: 06-02-2023 Telephone encounter Sally castillo APRN.ACID CLEANER Work Phone: Pulmonary Medicine Comment on above: Results Start: 05-28-2023 Telephone encounter She ferreira DO Work Phone: Pulmonary Medicine Comment on above: Appointment Start: 05-19-2023 Telephone encounter Fernando funk RD Work Phone: Pulmonary Medicine Comment on above: Returning Patient's Call Cystic fibrosis (HCC ) (Primary Dx); 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) Start: 04-07-2023 End: 04-07-2023 Patient encounter procedure Stephie Ramirez APRN.ACID CLEANER Work Phone: [facility] Comment on above: Type 1 diabetes ximena itus with hyperglycemia (HCC) (Primary Dx) Start: 04-07-2023 Chart abstracting Stephie Ramirez APRN.ACID CLEANER Work Phone: [facility] Start: 04-01-2023 End: 04-01-2023 ambulatory Lab/[place] [facility] Work Phone: Hematology/Oncology Comment on [...] End: 03-26-2023 Patient encounter procedure Pulm Lab [place] [employer] Work Phone: [facility] [employer] [facility] Start: 03-25-2023 ambulatory She Beth er DO Work Phone: Pulmonary Medicine Comment on above: Labs and respiratory viral panel Start: 03-25-2023 E-mail encounter santo rasmussen caregiver She Pete DO Work Phone: [facility] Start: 03-20-2023 ambulatory Lou Westbrook RN Infec tious Disease Comment on above: Extend [employer] (03/28) Start: 03-20-2023 Telephone encounter She ferreira DO Work Phone: Pulmonary Medicine Comment on above: Medication Problem Patient Update Start: 03-19-2023 End: 03-19-2023 Patient encounter procedure Pulm Lab [place] [employer] Work Phone: Pulmonary Medicine Comment on above: [...] m caregiver She Pete DO Work Phone: [facility] Start: 03-17-2023 ambulatory She felix DO Work Phone: Pulmonary Medicine Comment on above: Labs Start: 03-17-2023 Chart abstracting She sen DO Work Phone: Pulmonary Medicine Comment on above: CF chart review Start: 03-17-2023 E-mail encounter fro grady caregiver She Pete DO Work Phone: [facility] Start: 03-12-2023 ambulatory Anabel Michel MD Work Phone: Infectious Disease Comment on above: [employer] Start: 03-10-2023 Orders Only Sally Schneider MATERIAL DISPOSITION INSPECTOR.ACID CLEANER Work Phone: Pulmonary Medicine Comment on above: [...] End: 03-05-2023 Patient encounter procedure Pulm Lab [facility] Work Phone: [facility] Start: 03-03-2023 Orders Only Nell ARMANDO Pulm onary Medicine Comment on above: Cystic fibrosis with pulmonary manifestations (HCC) (Primary Dx) Start: 02-27-2023 ambulatory Jean Pierre Kilgore MD Work Phone: [facility] Start: 02-27-2023 Follow-up encounter Jean Pierre Kilgore MD Work Phone: Pulmonary Medicine Comment on above: Visit follow up Start: 02-26-2023 ambulatory Stephie Ramirez APRN.ACID CLEANER Work Phone: [facility] Endocrinology Comment on above: Dexcom Start: 02-26-2023 [...] q12h) Start: 12-20-2022 Chart abstracting Stephie Ramirez APRN.ACID CLEANER Work Phone: [facility] Start: 12-20-2022 End: 12-20-2022 Patient encounter procedure Stephie Ramirez APRN.ACID CLEANER Work Phone: [facility] Endocrinology Comment on above: Type 1 diabetes ximena itus with hyperglycemia (HCC) (Primary Dx) Start: 12-18-2022 Telephone encounter She ferreira DO Work Phone: Pulmonary Medicine Comment on above: Benefits Authorizati on Start: 12-06-2022 Telephone encounter Karlene jaramillo DO Work Phone: Kidney Medicine Comment on above: Appointment Start: 12-05-2022 Patient encounter procedure [facility] Start: 12-04-2022 End: 12-04-2022 ambulatory Pulm [place] Work Phone: Pulmonary Medicine Comment on above: Spirometry Start: 12-04-2022 End: 12-04-2022 Patient encounter procedure Pulm Lab Yohana Stuart Work Phone: [facility] Comment on above: Need for prophylacti c [...] resistant Staphylococcus aureus) infection Start: 11-26-2022 ambulatory Liuza delatorre MD Work Phone: Infectious Disease Comment on above: Outside Lab Results (copat) Start: 11-26-2022 Telephone encounter She ferreira DO Work Phone: Pulmonary Medicine Comment on above: Outside Lab Results Infection (Primary D x) Start: 11-26-2022 Patient encounter procedure [facility] Start: 11-20-2022 End: 11-20-2022 ambulatory Luiza Rodriges MD Work Phone: Pulmonary Medicine Comment on above: Spirometry Extend [employer] (11/29) Refill Request Start: 11-20-2022 End: 11-20-2022 Patient encounter procedure Pulm Lab [facility]ohana Stuart [facility] Comment on above: Cystic fibrosis with pulmonary exacerbation (HCC) (Primary Dx); Cystic fibrosis with pulmonary manifestations (HCC); 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); Cystic fibrosis with liver disease (HCC); Severe protein-calorie malnutrition (HCC); 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); Low weight Start: 11-19-2022 Telephone encounter Sally castillo APRN.ACID CLEANER Work Phone: [facility] Comment on above: Insurance Authorizat ion (for 0.9% Sodium Chloride 1000 ml//Infuse 1000 ml daily for 4 days/) Start: 11-18-2022 Chart abstracting Miguelina Murray RN [facility] Comment on above: Cystic fibrosis with pulmonary exacerbation (HCC) (Primary Dx) Start: 11-18-2022 Telephone encounter She ferreira DO Work Phone: Pulmonary Medicine Comment on above: Outside Lab Results Start: 11-18-2022 End: 11-18-2022 ambulatory [facility] Work Phone: Start: 11-18-2022 End: 11-18-2022 Patient encounter procedure [facility] Start: 11-15-2022 End: 11-15-2022 ambulatory [facility] Work Phone: Start: 11-15-2022 End: 11-15-2022 Patient encounter procedure [facility] Start: 11-12-2022 ambulatory Luiza delatorre MD Work Phone: Infectious Disease Comment on above: [employer] [facility] Start: 11-12-2022 Telephone encounter Luiza Rodriges MD Work Phone: [facility] [facility] Comment on above: Insurance Authorizat ion (for Vancomycin 750mg IV every 12 hours ,Meropenem 1.5gm IV every 8 hours ,Benadryl 50mg [id number]) Start: 11-11-2022 Orders Only Sally Schneider MATERIAL DISPOSITION INSPECTOR.ACID CLEANER Work Phone: Pediatric Pulmonary Comment on above: Cystic fibrosis (HCC ) (Primary Dx) Start: 11-08-2022 ambulatory Luiza delatorre MD Work Phone: [facility] Comment on above: CoPat Start Start: 11-05-2022 Chart abstracting Sally jones APRN.ACID CLEANER Work Phone: Pulmonary Medicine Start: 11-05-2022 End: 11-05-2022 ambulatory Pulm A110 Work Phone: Pulmonary Medicine Comment on above: Spirometry Start: 11-05-2022 End: 11-05-2022 Patient encounter procedure Pulm Fct Lab 2 - A110 Work Phone: [facility] Start: 11-04-2022 Telephone encounter She [...] rasmussen caregiver She Pete DO Work Phone: [facility] Start: 09-11-2022 E-mail encounter santo rasmussen caregiver She Pete DO Work Phone: [place] [facility] Start: 09-11-2022 Follow-up encounter She ferreira DO Work Phone: Family Medicine [facility] Comment on above: CF follow-up visit Start: 09-11-2022 End: 09-11-2022 ambulatory [place] Work Phone: Pulmonary Medicine Comment on above: Spirometry Start: 09-11-2022 End: 09-11-2022 Patient encounter procedure Pulm Lab [place] Work Phone: [facility] Comment on above: CF (cystic fibrosis) (HCC) (Primary Dx); 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); Chronic pansinusitis; Pseudomonas aeruginosa infection; Burkholderia cepacia infection; Hemoptysis; 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); Cystic fibrosis with pulmonary manifestations (HCC); Severe protein-calorie malnutrition (HCC) Start: 09-05-2022 ambulatory Stephie Ramirez MATERIAL DISPOSITION INSPECTOR.ACID CLEANER Work Phone: [facility] Start: 09-05-2022 Follow-up encounter Stephie Ramirez MATERIAL DISPOSITION INSPECTOR.ACID CLEANER Work Phone: [facility] Comment on above: Overdue follow up Start: 08-28-2022 Telephone encounter Sally castillo APRN.ACID CLEANER Work Phone: Family Medicine [facility] Comment on above: Medication Problem Start: 08-26-2022 ambulatory She felix DO Work Phone: Pulmonary Medicine Comment on above: Covid 19 Cystic fibrosis with pulmonary manifestations (HCC) (Primary Dx) Start: 08-26-2022 E-mail encounter santo m caregiver Sally Schneider APRN.ACID CLEANER Work Phone: [facility] Start: 08-09-2022 End: 08-09-2022 ambulatory Jordyn Johnson MD Work Phone: Pediatric Pulmonary Comment on above: Spirometry [place] Stop Start: 08-09-2022 End: 08-09-2022 Patient encounter procedure Peds Pulm [employer] [facility] Work Phone: [facility] Comment on above: Cystic fibrosis (HCC ) (Primary Dx); Pseudomonas aeruginosa infection; Burkholderia cepacia infection; MRSA (methicillin resistant Staphylococcus aureus) infection; 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); 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) Start: 08-06-2022 End: 08-06-2022 ambulatory Jordyn Johnson MD Work Phone: Infectious Disease Comment on above: Outside Lab Results (copat) Start: 08-06-2022 End: 08-06-2022 Patient encounter procedure [facility] Start: 08-01-2022 ambulatory Alex Clayton RN Work Phone: Case Management Comment on above: [place] Agency Start: 07-31-2022 ambulatory Jordyn Johnson MD Work Phone: [facility] Comment on above: CoPat Start Start: 07-25-2022 End: 07-25-2022 Orders Only Forrest Hlae MD Work Phone: Pulmonary Medicine Comment on [...] Start: 05-12-2022 End: 05-12-2022 ambulatory UNKNOWN PROVIDER Facility:[facility] Start: 05-12-2022 End: 05-14-2022 [facility] CURTIS CISNEROS MD [facility] Start: 05-12-2022 End: 05-14-2022 Evaluation and management of inpatient MD NO PRIMARY CARE [facility] Start: 05-12-2022 End: 05-14-2022 Evaluation and [...] Facility:[facility] Start: 07-02-2018 Patient encounter STEPHIEKAROLINA RAMIREZ Facility:[facility] Start: 06-18-2018 End: 06-18-2018 Patient encounter STEPHIE RAMIREZ Facility:[facility] Start: 05-29-2018 End: 05-29-2018 Patient encounter STEPHIE RAMIREZ Facility:[facility] Start: 02-26-2018 Patient encounter STEPHIE RAMIREZ Facility:[facility] Procedures Date Procedure Procedure Detail Performing Clinician Start: 02-09-2025 Spmtry w/vc expiratory cristina w/wo mxml vol vntj Sally Schneider MATERIAL DISPOSITION INSPECTOR.ACID CLEANER Work Phone: Start: 02-07-2025 Radiologic exam chest 2 views Farrukh Gomes MD Work Phone: Start: 02-07-2025 STREP A MOLECULAR (POC) Peggy Radha mei APRN.ACID CLEANER Work Phone: Start: 01-05-2025 Spmtry w/vc expiratory cristina w/wo mxml vol vntj Jean Pierre Kilgore MD Work Phone: Start: 10-12-2024 Hemoglobin A1c/Hemoglobin.total in Blood Stephie Ramirez APRN.ACID CLEANER Work Phone: Start: 10-06-2024 Spmtry w/vc expiratory cristina w/wo mxml vol vntj Sally Schneider MATERIAL DISPOSITION INSPECTOR.ACID CLEANER Work Phone: Start: 09-09-2024 Spmtry w/vc expiratory cristina w/wo mxml vol vntj Zaida Santos RN Work Phone: Start: 08-19-2024 IR VASCULAR ACCESS TEAM PICC INSERTION RADIO Jean Pierre Kilgore MD Work Phone: Start: 08-18-2024 Spmtry w/vc expiratory cristina w/wo mxml vol vntj Jean Pierre Kilgore MD Work Phone: Start: 07-06-2024 Hemoglobin A1c/Hemoglobin.total in Blood Stephie Ramirez APRN.ACID CLEANER Work Phone: Start: 05-07-2024 Mri abdomen w/o & w/contrast material Crystal Vallejo MD Work Phone: Start: 05-05-2024 Cul bact xcpt urine blood/stool aerobic isol Jean Pierre Kilgore MD Work Phone: Start: 05-05-2024 Spmtry w/vc expiratory cristina w/wo mxml vol vntj Nell Lozano [facility] Start: 03-09-2024 Hemoglobin A1c/Hemoglobin.total in Blood Stephie Ramirez APRN.ACID CLEANER Work Phone: Start: 02-24-2024 BILIRUBIN TOTAL BLD [...] BY RAPID PCR (WITH COVID) Sally Schneider APRN.ACID CLEANER Work Phone: Start: 06-04-2023 Cul bact xcpt urine blood/stool aerobic isol Jean Pierre Kilgore MD Work Phone: Start: 06-04-2023 Spmtry w/vc expiratory cristina w/wo mxml vol vntj She Pete DO Work Phone: Start: 06-02-2023 Radiologic exam abdomen 1 view Sally Schneider MATERIAL DISPOSITION INSPECTOR.ACID CLEANER Work Phone: Start: 03-19-2023 RESPIRATORY PANEL BY RAPID PCR (WITH COVID) She Pete DO Work Phone: Start: 03-05-2023 Spmtry w/vc expiratory cristina w/wo mxml vol vntj Nell Lozano [facility] Start: 12-04-2022 INFLUENZA VACCINE QUADRIVALENT 6 MO [...] cristina w/wo mxml vol vntj Sally Bucur MATERIAL DISPOSITION INSPECTOR.ACID CLEANER Work Phone: Start: 11-05-2022 Spmtry w/vc expiratory cristina w/wo mxml vol vntj Sally Bucur MATERIAL DISPOSITION INSPECTOR.ACID CLEANER Work Phone: Start: 09-11-2022 Spmtry w/vc expiratory cristina w/wo mxml vol vntj She Tamara DO Work Phone: Start: 08-09-2022 Spmtry w/vc expiratory cristina w/wo mxml vol vntj Sally Bucur MATERIAL DISPOSITION INSPECTOR.ACID CLEANER Work Phone: Start: 08-06-2022 CBC + DIFF [...] only Karlene Chacon DO Work Phone (unformatted): [phone] Start: 05-13-2022 Glucose blood reagent strip Curtis [...] Blood Karlene Chacon DO Work Phone (unformatted): [phone] Start: 05-12-2022 End: 05-12-2022 Comprehensive metabolic panel Karlene Chacon DO Work Phone (unformatted): [phone] Start: 05-12-2022 Manual Differential panel - Blood Karlene Chacon DO Work Phone (unformatted): [phone] Start: 05-12-2022 Iadna respiratry probe & rev trnscr 11-24 target Karlene Chacon DO Work Phone (unformatted): [phone] Start: 05-12-2022 Radiologic exam abdomen 2 views Karlene Chacon DO Work Phone (unformatted): [phone] Plan of Treatment Date Care Activity Detail Author Start: 2058 PNEUMOCOCCAL (3 - PPSV23 if available, else PCV20) PNEUMOCOCCAL (3 - PPSV23 if available, else PCV20) [facility] Start: 2058 PNEUMOCOCCAL (3 - PPSV23 or PCV20) PNEUMOCOCCAL (3 - PPSV23 or PCV20) [facility] Start: 2058 Pneumococcal vaccination [facility] Start: 2043 Pneumococcal vaccination Pneumococcal Vaccine (3 of 3 - PCV20 or PCV21) [facility] Start: 05-12-2026 Chest X-Ray CF Chest X-Ray CF [facility] Start: 02-14-2026 Diabetic foot examination Diabetic Foot Exam [facility] Start: 02-09-2026 BP Controlled (<130/80) BP Controlled (<130/80) [facility] Start: 10-08-2025 Hemoglobin A1c measurement HbA1C [facility] Start: 08-23-2025 End: 08-23-2025 Patient encounter procedure 08/23/2025 2:00 PM EDT Office Visit [facility] [address] [place] [address] Stephie Ramirez, MATERIAL DISPOSITION INSPECTOR.ACID CLEANER [address] [place], [place] [id number] dm [facility] Comment on above: dm Start: 08-01-2025 Influenza vaccination Influenza Vaccine (Season Ended) [facility] Start: 07-07-2025 Hemoglobin A1c measurement HbA1C [facility] Start: 05-09-2025 End: 05-09-2025 Patient encounter procedure 05/09/2025 1:30 PM EDT Office Visit [facility] [address] [place] [address] Stephie Ramirez, MATERIAL DISPOSITION INSPECTOR.ACID CLEANER [address] [place] [address] dm [facility] Comment on above: dm Start: 05-04-2025 End: 05-04-2025 ambulatory 05/04/2025 10:30 AM EDT Procedure [facility] [address] [place] [address] Cystic fibrosis (HCC) [E84.9] [facility] Comment on above: Cystic fibrosis (HCC) [E84.9] Start: 04-14-2025 End: 07-14-2025 Comprehensive metabolic 2000 panel - Serum or Plasma COMPREHENSIVE METABOLIC PANEL Lab Routine Cystic fibrosis with pulmonary manifestations (HCC) Expected: 04/14/2025 (Approximate), Expires: 07/14/2025 [facility] Work Phone: Comment on above: Expected: 04/14/2025 (Approximate), Expi res: 07/14/2025 Start: 04-11-2025 Hemoglobin A1c measurement HbA1C [facility] Start: 04-06-2025 End: 07-06-2025 25-hydroxyvitamin D3 [Mass/volume] in Serum or Plasma VITAMIN D 25 HYDROXY Lab Routine Cystic fibrosis (HCC) Expected: 04/06/2025 (Approximate), Expires: 07/06/2025 [facility] Comment on above: Expected: 04/06/2025 (Approximate), Expi res: 07/06/2025 Start: 04-06-2025 End: 07-06-2025 Alpha tocopherol [Mass/volume] in Serum or Plasma VITAMIN E/TOCOPHEROL Lab Routine Cystic fibrosis (HCC) Expected: 04/06/2025 (Approximate), Expires: 07/06/2025 [facility] Comment on above: Expected: 04/06/2025 (Approximate), Expi res: 07/06/2025 Start: 04-06-2025 End: 07-06-2025 C reactive protein [Mass/volume] in Serum or Plasma C-REACTIVE PROTEIN Lab Routine Cystic fibrosis (HCC) Expected: 04/06/2025 (Approximate), Expires: 07/06/2025 [facility] Comment on above: Expected: 04/06/2025 (Approximate), Expi res: 07/06/2025 Start: 04-06-2025 End: 07-06-2025 CBC W Auto Differential panel - Blood COMPLETE BLOOD COUNT AND DIFFERENTIAL Lab Routine Cystic fibrosis (HCC) Expected: 04/06/2025 (Approximate), Expires: 07/06/2025 [facility] Work Phone: Comment on above: Expected: 04/06/2025 (Approximate), Expi res: 07/06/2025 Start: 04-06-2025 End: 07-06-2025 Comprehensive metabolic 2000 panel - Serum or Plasma COMPREHENSIVE METABOLIC PANEL Lab Routine Cystic fibrosis (HCC) Expected: 04/06/2025 (Approximate), Expires: 07/06/2025 [facility] Comment on above: Expected: 04/06/2025 (Approximate), Expi res: 07/06/2025 Start: 04-06-2025 End: 07-06-2025 Gamma glutamyl transferase [Enzymatic activity/volume] in Serum or Plasma GGT Lab Routine Cystic fibrosis ([facility]) Expected: 04/06/2025 (Approximate), Expires: 07/06/2025 [facility] Comment on above: Expected: 04/06/2025 (Approximate), Expi res: 07/06/2025 Start: 04-06-2025 End: 07-06-2025 Hemoglobin A1c in Blood HEMOGLOBIN A1C Lab Routine Cystic fibrosis ([facility]) Expected: 04/06/2025 (Approximate), Expires: 07/06/2025 [facility] Comment on above: Expected: 04/06/2025 (Approximate), Expi res: 07/06/2025 Start: 04-06-2025 End: 07-06-2025 IgE [Units/volume] in Serum or Plasma IMMUNOGLOBULIN E Lab Routine Cystic fibrosis ([facility]) Expected: 04/06/2025 (Approximate), Expires: 07/06/2025 [facility] Comment on above: Expected: 04/06/2025 (Approximate), Expi res: 07/06/2025 Start: 04-06-2025 End: 07-06-2025 PT panel - Platelet poor plasma by Coagulation assay PROTHROMBIN TIME Lab Routine Cystic fibrosis ([facility]) Expected: 04/06/2025 (Approximate), Expires: 07/06/2025 [facility] Comment on above: Expected: 04/06/2025 (Approximate), Expi res: 07/06/2025 Start: 04-06-2025 End: 07-06-2025 Retinol [Mass/volume] in Serum or Plasma VITAMIN A/RETINOL Lab Routine Cystic fibrosis ([facility]) Expected: 04/06/2025 (Approximate), Expires: 07/06/2025 [facility] Comment on above: Expected: 04/06/2025 (Approximate), Expi res: 07/06/2025 Start: 04-06-2025 End: 07-06-2025 Testosterone [Mass/volume] in Serum or Plasma TESTOSTERONE, TOTAL BY IMMUNOASSAY (ADULT MALES, OR INDIVIDUALS ON TESTOSTERONE THERAPY) Lab Routine Cystic fibrosis (HCC) Expected: 04/06/2025 (Approximate), Expires: 07/06/2025 [facility] Comment on above: Expected: 04/06/2025 (Approximate), Expi res: 07/06/2025 Start: 04-06-2025 End: 04-06-2025 Patient encounter procedure Pulmonary Medicine Comment on above: 3 mo f/u Start: 04-06-2025 End: 04-06-2025 ambulatory 04/06/2025 10:45 AM EDT Procedure Pulmonary Medicine [address] [place] [address] CF Laptop Sj Pulmonary Medicine Comment on above: CF Laptop [place] Start: 03-17-2025 Hepatitis B surface antibody level LDL Cholesterol [facility] Start: 03-09-2025 BP Controlled (<130/80) BP Controlled (<130/80) [facility] Start: 02-14-2025 End: 02-14-2025 Patient encounter procedure 02/14/2025 2:30 PM EDT [facility] [address] [place], [place] [phone] Stephie Ramirez, MATERIAL DISPOSITION INSPECTOR.ACID CLEANER [address] [place], [place] [id number] dm [facility] Comment on above: dm Start: 02-14-2025 End: 05-16-2025 Comprehensive metabolic 2000 panel - Serum or Plasma COMPREHENSIVE METABOLIC PANEL Lab Routine Cystic fibrosis (HCC) Expected: 02/14/2025, Expires: 05/16/2025 [facility] Work Phone: Comment on above: Expected: 02/14/2025, Expires: Start: 02-09-2025 End: 05-11-2025 Comprehensive metabolic 2000 panel - Serum or Plasma [facility] Comment on above: Expected: 02/09/2025, Expires: Start: 02-09-2025 End: 05-11-2025 Respiratory pathogens DNA and RNA panel - Nasopharynx by PABLO with probe detection EXPANDED RESPIRATORY PATHOGEN PANEL BY PCR, ROUTINE Lab Routine Cystic fibrosis (HCC) Fever, unspecified fever cause Expected: 02/09/2025, Expires: 05/11/2025 [facility] Comment on above: Expected: 02/09/2025, Expires: Start: 02-09-2025 End: 02-09-2025 ambulatory 02/09/2025 10:30 AM EDT Procedure Pulmonary Medicine [address] [place] [address] Est CF Pulmonary Medicine Comment on above: Est CF Start: 02-09-2025 End: 02-09-2025 Patient encounter procedure 02/09/2025 10:30 AM EDT Office Visit Pulmonary Medicine [address] [place] [address] Sally Schneider APRN.ACID CLEANER [address] [facility] [place] [address] Est CF Pulmonary Medicine Comment on above: Est CF Start: 02-07-2025 End: 05-09-2025 Fungus identified in Unspecified specimen by Culture [facility] Work Phone: Comment on above: Expected: 02/07/2025, Expires: Start: 02-02-2025 Diabetic foot examination Diabetic Foot Exam [facility] Start: 01-06-2025 Hemoglobin A1c measurement HbA1C [facility] Start: 01-05-2025 End: 04-06-2025 Comprehensive metabolic 2000 panel - Serum or Plasma COMPREHENSIVE METABOLIC PANEL Lab Routine Cystic fibrosis with pulmonary manifestations (HCC) Expected: 01/05/2025, Expires: 04/06/2025 [facility] Work Phone: Comment on above: Expected: 01/05/2025, Expires: Start: 01-05-2025 End: 04-06-2025 Hemoglobin A1c in Blood HEMOGLOBIN A1C Lab Routine Cystic fibrosis with pulmonary manifestations (HCC) 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) Expected: 01/05/2025, Expires: 04/06/2025 [facility] Comment on above: Expected: 01/05/2025, Expires: Start: 01-05-2025 End: 01-05-2025 Patient encounter procedure 01/05/2025 1:45 PM EST Office Visit Pulmonary Medicine [address] [place], [place] [phone] Jean Pierre Kilgore MD [address] [place] [address] EST CF w/Sheers + pft in 3 months-[facility] 08-18-24 Pulmonary Medicine Comment on above: EST CF w/Sheers + pft in 3 months-[facility] 08-18-24 Start: 01-05-2025 End: 01-05-2025 ambulatory Pulmonary Medicine Comment on above: Cystic fibrosis with pulmonary manifesta tions (HCC) [E84.0] BC//Cystic fibrosis with pulmonary manifestations (HCC) [E84.0] Start: 12-08-2024 End: 12-08-2024 Patient encounter procedure 12/08/2024 1:00 PM EST Appointment [facility] [address] [place] [address] Cystic fibrosis (HCC) [E84.9] [facility] Comment on above: Cystic fibrosis (HCC) [E84.9] Start: 11-10-2024 End: 11-10-2024 Patient encounter procedure Pulmonary Medicine Comment on above: Cystic fibrosis with pulmonary manifesta tions (HCC) [E84.0] EST CF w/Sheers + pf t in 3 months-[facility] 08-18-24 Start: 10-12-2024 End: 10-12-2024 Patient encounter procedure 10/12/2024 2:00 PM EST Office Visit [facility] End[facility] [address] [place], [place] [phone] Stephie Ramirez, MATERIAL DISPOSITION INSPECTOR.ACID CLEANER [address] [place], [place] [id number] type 1 diabetes [facility] Endocrinology Comment on above: type 1 diabetes Start: 10-06-2024 End: 01-05-2025 Comprehensive metabolic 2000 panel - Serum or Plasma [facility] Work Phone: Comment on above: Expected: 10/06/2024, Expires: Start: 10-06-2024 End: 10-06-2024 Patient encounter procedure 10/06/2024 1:00 PM EST Office Visit Pulmonary Medicine [address] [place] [address] Sally Schneider APRN.ACID CLEANER [address] [place] [address] Est-CF Pulmonary Medicine Comment on above: Est-CF Start: 10-06-2024 End: 10-06-2024 ambulatory 10/06/2024 12:30 PM EST Procedure Pulmonary Medicine [address] [place] [address] Cystic fibrosis Pulmonary Medicine Comment on above: Cystic fibrosis Start: 09-24-2024 BP Controlled (<130/80) BP Controlled (<130/80) [facility] Start: 09-16-2024 End: 12-16-2024 Basic metabolic 2000 panel - Serum or Plasma [facility] Comment on above: Expected: 09/16/2024, Expires: Start: 09-09-2024 End: 09-09-2024 Patient encounter procedure 09/09/2024 1:00 PM EDT Office Visit Pulmonary Medicine [address] [place] [address] Sally Schneider APRN.ACID CLEANER [address] [place] [address] Est CF w/Bucur + Spirometry Baseline on Sep 09 at 1 PM ADD ON-CS stf msg 09-02-24 Pulmonary Medicine Comment on above: Est CF w/Bucur + Spirometry Baseline on Sep 09 at 1 PM ADD ON-CS stf msg 09-02-24 Start: 09-09-2024 End: 09-09-2024 ambulatory 09/09/2024 12:30 PM EDT Procedure Pulmonary Medicine [address] [address], Pulm Fct Lab Main [address] [place] [address] Cystic fibrosis (HCC) [E84.9] Pulmonary Medicine Comment on above: Cystic fibrosis (HCC) [E84.9] Start: 09-08-2024 Hemoglobin A1c measurement HbA1C [facility] Start: 09-02-2024 End: 09-02-2024 Patient encounter procedure [facility] Comment on above: Cystic fibrosis (HCC) [E84.9] COMP 2022 L / Spine Frax: Sec osteo Prior VFA Start: 09-01-2024 End: 09-01-2024 Patient encounter procedure Pulmonary Medicine Comment on above: EST CF w/Sheers + pft on 09/01 at 1pm-[facility] ms 08-18-24 Start: 09-01-2024 End: 09-01-2024 ambulatory 09/01/2024 12:15 PM EDT Procedure Pulmonary Medicine [address] [address], Pulm Fct Lab Main [address] [place] [address] Cystic fibrosis (HCC) [E84.9] Pulmonary Medicine Comment on above: Cystic fibrosis (HCC) [E84.9] Start: 08-27-2024 End: 09-03-2024 Basic metabolic 2000 panel - Serum or Plasma BASIC METABOLIC PANEL Lab Routine Hyperkalemia Cystic fibrosis (HCC) Expected: 08/27/2024, Expires: 09/03/2024 [facility] Work Phone: Comment on above: Expected: 08/27/2024, Expires: Start: 08-19-2024 End: 08-19-2024 Patient encounter procedure 08/19/2024 8:00 AM EDT Office Visit [facility] PICC TEAM [address] [place] [phone] CF Copat - schedule at [facility] PICC TEAM Comment on above: CF [place] - schedule at [place] Start: 08-18-2024 End: 08-18-2024 Patient encounter procedure 08/18/2024 1:45 PM EDT Office Visit Pulmonary Medicine [address] [place], [place] [phone] Jean Pierre Kilgore MD [address] [facility] [address] [place], [place] [id number] CF Pulmonary Medicine Comment on above: CF Start: 08-18-2024 End: 08-18-2024 ambulatory 08/18/2024 1:15 PM EDT Procedure Pulmonary Medicine [address] [place] [address] CF Pulmonary Medicine Comment on above: CF Start: 08-11-2024 3 comp foot exam completed DIABETIC FOOT EXAM [facility] Start: 08-11-2024 Diabetic foot examination Diabetic Foot Exam [facility] Start: 08-05-2024 Hemoglobin A1c measurement HbA1C [facility] Start: 08-01-2024 Covid-19 Vaccine ( season) Covid-19 Vaccine ( season) [facility] Start: 08-01-2024 Covid-19 Vaccine ( season) Covid-19 Vaccine () [facility] Start: 08-01-2024 Influenza vaccination [facility] Start: 07-27-2024 Hepatitis B screening URINE ALBUMIN:CREATININE RATIO [facility] Start: 07-19-2024 End: 07-19-2024 ambulatory 07/19/2024 2:30 PM EDT [facility] [address] [address] Tia Lindo MD [address] [place] [address] Liver Disease Gastroenterology Comment on above: Liver Disease Start: 07-19-2024 End: 10-18-2024 [id number] [Mass/volume] in Serum or Plasma ALPHA FETOPROTEIN Lab Routine Other cirrhosis of liver (HCC) Expected: 07/19/2024, Expires: 10/18/2024 [facility] Comment on above: Expected: 07/19/2024, Expires: Start: 07-19-2024 End: 10-18-2024 Cancer Ag 19-9 [Units/volume] in Serum or Plasma CA 19-9 Lab Routine Other cirrhosis of liver (HCC) Expected: 07/19/2024, Expires: 10/18/2024 [facility] Comment on above: Expected: 07/19/2024, Expires: Start: 07-19-2024 End: 10-18-2024 Carcinoembryonic Ag [Mass/volume] in Serum or Plasma CARCINOEMBRYONIC ANTIGEN Lab Routine Other cirrhosis of liver (HCC) Expected: 07/19/2024, Expires: 10/18/2024 [facility] Comment on above: Expected: 07/19/2024, Expires: Start: 07-19-2024 End: 10-18-2024 CBC panel - Blood by Automated count COMPLETE BLOOD COUNT Lab Routine Other cirrhosis of liver (HCC) Expected: 07/19/2024, Expires: 10/18/2024 [facility] Work Phone: Comment on above: Expected: 07/19/2024, Expires: Start: 07-19-2024 End: 10-18-2024 Comprehensive metabolic 2000 panel - Serum or Plasma COMPREHENSIVE METABOLIC PANEL Lab Routine Other cirrhosis of liver (HCC) Expected: 07/19/2024, Expires: 10/18/2024 [facility] Comment on above: Expected: 07/19/2024, Expires: Start: 07-19-2024 End: 10-18-2024 PT panel - Platelet poor plasma by Coagulation assay PROTHROMBIN TIME Lab Routine Other cirrhosis of liver (HCC) Expected: 07/19/2024, Expires: 10/18/2024 [facility] Comment on above: Expected: 07/19/2024, Expires: Start: 07-14-2024 End: 07-14-2024 Patient encounter procedure 07/14/2024 11:00 AM EDT Office Visit Gastroenterology [address] [address] Tia Lindo MD [address] [place] [address] CF-related liver disease Gastroenterology Comment on above: CF-related liver disease Start: 07-06-2024 End: 07-06-2024 Patient encounter procedure 07/06/2024 2:00 PM EDT Office Visit [facility] General Endocrinology [address] [place], [place] [id number] Stephie Ramirez, ADALI.[employer] [address] [place] [address] type 1 diabetes [facility] Comment on above: type 1 diabetes Start: 07-02-2024 BP CONTROLLED (<130/80) BP CONTROLLED (<130/80) [facility] Start: 06-04-2024 BP CONTROLLED (<130/80) BP CONTROLLED (<130/80) [facility] Start: 05-21-2024 Hemoglobin A1c measurement HbA1C [facility] Start: 05-19-2024 End: 08-18-2024 25-hydroxyvitamin D3 [Mass/volume] in Serum or Plasma VITAMIN D 25 HYDROXY Lab Routine Cystic fibrosis (HCC) 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) 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) Expected: 05/19/2024 (Approximate), Expires: 08/18/2024 [facility] Comment on above: Expected: 05/19/2024 (Approximate), Expi res: 08/18/2024 Start: 05-19-2024 End: 08-18-2024 Alpha tocopherol [Mass/volume] in Serum or Plasma VITAMIN E/TOCOPHEROL Lab Routine Cystic fibrosis (HCC) 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) 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) Expected: 05/19/2024 (Approximate), Expires: 08/18/2024 [facility] Comment on above: Expected: 05/19/2024 (Approximate), Expi res: 08/18/2024 Start: 05-19-2024 End: 08-18-2024 Retinol [Mass/volume] in Serum or Plasma VITAMIN A/RETINOL Lab Routine Cystic fibrosis (HCC) 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) 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) Expected: 05/19/2024 (Approximate), Expires: 08/18/2024 [facility] Work Phone: Comment on above: Expected: 05/19/2024 (Approximate), Expi res: 08/18/2024 Start: 05-19-2024 End: 08-18-2024 Zinc [Mass/volume] in Serum or Plasma ZINC BLD Lab Routine Cystic fibrosis (HCC) 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) 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) Expected: 05/19/2024 (Approximate), Expires: 08/18/2024 [facility] Comment on above: Expected: 05/19/2024 (Approximate), Expi res: 08/18/2024 Start: 05-07-2024 End: 05-07-2024 Patient encounter procedure 05/07/2024 1:40 PM EDT Appointment Radiology [address] [place] [address] Abnormal results of liver function studies [R94.5] Radiology Comment on above: Abnormal results of liver function studi es [R94.5] Start: 05-05-2024 End: 05-05-2024 Patient encounter procedure Pulmonary Medicine Comment on above: Cystic fibrosis with pulmonary manifesta tions (HCC) [E84.0] [facility] EDUCATION Start: 05-05-2024 End: 05-05-2024 ambulatory 05/05/2024 2:15 PM EDT Procedure Pulmonary Medicine [address] [place] [address] Cystic fibrosis with pulmonary manifestations (HCC) [E84.0] Pulmonary Medicine Comment on above: Cystic fibrosis with pulmonary manifesta tions (HCC) [E84.0] Start: 05-05-2024 End: 08-04-2024 Basic metabolic 2000 panel - Serum or Plasma BASIC METABOLIC PANEL Lab Routine Cystic fibrosis with pulmonary manifestations (HCC) Expected: 05/05/2024, Expires: 08/04/2024 [facility] Comment on above: Expected: 05/05/2024, Expires: Start: 05-05-2024 End: 08-04-2024 Hepatic function 2000 panel - Serum or Plasma HEPATIC FUNCTION PNL Lab Routine Cystic fibrosis with pulmonary manifestations (HCC) 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) Expected: 05/05/2024, Expires: 08/04/2024 [facility] Comment on above: Expected: 05/05/2024, Expires: Start: 04-07-2024 End: 04-07-2024 Patient encounter procedure 04/07/2024 1:30 PM EDT Office Visit Gastroenterology [address] [address] Tia Lindo MD [address] [place] [address] CF-related liver disease Gastroenterology Comment on above: CF-related liver disease Start: 02-27-2024 BP CONTROLLED (<130/80) BP CONTROLLED (<130/80) [facility] Start: 02-25-2024 End: 11-30-2024 25-hydroxyvitamin D3 [Mass/volume] in Serum or Plasma VITAMIN D 25 HYDROXY Lab Routine Cystic fibrosis (HCC) 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 fibrosis with pulmonary manifestations (HCC) Vitamin D deficiency Expected: 02/25/2024 (Approximate), Expires: 11/30/2024 [facility] Work Phone: Comment on above: Expected: 02/25/2024 (Approximate), Expi res: 11/30/2024 Start: 02-25-2024 End: 11-30-2024 Alpha tocopherol [Mass/volume] in Serum or Plasma VITAMIN E/TOCOPHEROL Lab Routine Cystic fibrosis (HCC) 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 fibrosis with pulmonary manifestations (HCC) Vitamin D deficiency Expected: 02/25/2024 (Approximate), Expires: 11/30/2024 [facility] Work Phone: Comment on above: Expected: 02/25/2024 (Approximate), Expi res: 11/30/2024 Start: 02-25-2024 End: 11-30-2024 C reactive protein [Mass/volume] in Serum or Plasma C-REACTIVE PROTEIN (CRP) Lab Routine Cystic fibrosis (HCC) 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 fibrosis with pulmonary manifestations (HCC) Vitamin D deficiency Expected: 02/25/2024 (Approximate), Expires: 11/30/2024 [facility] Work Phone: Comment on above: Expected: 02/25/2024 (Approximate), Expi res: 11/30/2024 Start: 02-25-2024 End: 11-30-2024 CBC W Auto Differential panel - Blood CBC + DIFF Lab Routine Cystic fibrosis (HCC) 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 fibrosis with pulmonary manifestations (HCC) Vitamin D deficiency Expected: 02/25/2024 (Approximate), Expires: 11/30/2024 [facility] Work Phone: Comment on above: Expected: 02/25/2024 (Approximate), Expi res: 11/30/2024 Start: 02-25-2024 End: 11-30-2024 Comprehensive metabolic 2000 panel - Serum or Plasma COMP METABOLIC PANEL Lab Routine Cystic fibrosis (HCC) 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 fibrosis with pulmonary manifestations (HCC) Vitamin D deficiency Expected: 02/25/2024 (Approximate), Expires: 11/30/2024 [facility] Work Phone: Comment on above: Expected: 02/25/2024 (Approximate), Expi res: 11/30/2024 Start: 02-25-2024 End: 11-30-2024 Erythrocyte sedimentation rate SED RATE WESTERGREN Lab Routine Cystic fibrosis (HCC) 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 fibrosis with pulmonary manifestations (HCC) Vitamin D deficiency Expected: 02/25/2024 (Approximate), Expires: 11/30/2024 [facility] Work Phone: Comment on above: Expected: 02/25/2024 (Approximate), Expi res: 11/30/2024 Start: 02-25-2024 End: 11-30-2024 Gamma glutamyl transferase [Enzymatic activity/volume] in Serum or Plasma GGT BLD Lab Routine Cystic fibrosis (HCC) 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 fibrosis with pulmonary manifestations (HCC) Vitamin D deficiency Expected: 02/25/2024 (Approximate), Expires: 11/30/2024 [facility] Work Phone: Comment on above: Expected: 02/25/2024 (Approximate), Expi res: 11/30/2024 Start: 02-25-2024 End: 11-30-2024 IgE [Units/volume] in Serum or Plasma IGE BLD Lab Routine Cystic fibrosis (HCC) 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 fibrosis with pulmonary manifestations (HCC) Vitamin D deficiency Expected: 02/25/2024 (Approximate), Expires: 11/30/2024 [facility] Work Phone: Comment on above: Expected: 02/25/2024 (Approximate), Expi res: 11/30/2024 Start: 02-25-2024 End: 11-30-2024 Lipid 1996 panel - Serum or Plasma LIPID PANEL BASIC Lab Routine Cystic fibrosis (HCC) 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 fibrosis with pulmonary manifestations (HCC) Vitamin D deficiency Expected: 02/25/2024 (Approximate), Expires: 11/30/2024 [facility] Work Phone: Comment on above: Expected: 02/25/2024 (Approximate), Expi res: 11/30/2024 Start: 02-25-2024 End: 11-30-2024 Magnesium [Mass/volume] in Serum or Plasma MAGNESIUM BLD Lab Routine Cystic fibrosis (HCC) 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 fibrosis with pulmonary manifestations (HCC) Vitamin D deficiency Expected: 02/25/2024 (Approximate), Expires: 11/30/2024 [facility] Work Phone: Comment on above: Expected: 02/25/2024 (Approximate), Expi res: 11/30/2024 Start: 02-25-2024 End: 11-30-2024 PT panel - Platelet poor plasma by Coagulation assay PROTHROMBIN TIME/PT Lab Routine Cystic fibrosis (HCC) 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 fibrosis with pulmonary manifestations (HCC) Vitamin D deficiency Expected: 02/25/2024 (Approximate), Expires: 11/30/2024 [facility] Work Phone: Comment on above: Expected: 02/25/2024 (Approximate), Expi res: 11/30/2024 Start: 02-25-2024 End: 11-30-2024 Retinol [Mass/volume] in Serum or Plasma VITAMIN A/RETINOL Lab Routine Cystic fibrosis (HCC) 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 fibrosis with pulmonary manifestations (HCC) Vitamin D deficiency Expected: 02/25/2024 (Approximate), Expires: 11/30/2024 [facility] Work Phone: Comment on above: Expected: 02/25/2024 (Approximate), Expi res: 11/30/2024 Start: 02-18-2024 End: 05-19-2024 CREATININE BLD CREATININE BLD Lab Routine Infection Expected: 02/18/2024, Expires: 05/19/2024 [facility] Work Phone: Comment on above: Expected: 02/18/2024, Expires: Start: 02-18-2024 End: 05-19-2024 Vancomycin [Mass/volume] in Serum or Plasma --random VANCOMYCIN Lab Routine Infection Expected: 02/18/2024, Expires: 05/19/2024 [facility] Work Phone: Comment on above: Expected: 02/18/2024, Expires: 4 Start: 02-16-2024 End: 05-17-2024 CELIAC COMPREHENSIVE PANEL CELIAC COMPREHENSIVE PANEL Lab Routine 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) Expected: 02/16/2024, Expires: 05/17/2024 [facility] Work Phone: Comment on above: Expected: 02/16/2024, Expires: 4 Start: 01-25-2024 Dexa Scan CF Dexa Scan [facility] Start: 01-07-2024 End: 11-30-2024 25-hydroxyvitamin D3 [Mass/volume] in Serum or Plasma VITAMIN D 25 HYDROXY Lab Routine Cystic fibrosis (HCC) 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) 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) Dietary counseling and surveillance Vitamin D deficiency Expected: 01/07/2024 (Approximate), Expires: 11/30/2024 [facility] Work Phone: Comment on above: Expected: 01/07/2024 (Approximate), Expi res: 11/30/2024 Start: 01-07-2024 End: 11-30-2024 Alpha tocopherol [Mass/volume] in Serum or Plasma VITAMIN E/TOCOPHEROL Lab Routine Cystic fibrosis (HCC) 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) 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) Dietary counseling and surveillance Vitamin D deficiency Expected: 01/07/2024 (Approximate), Expires: 11/30/2024 [facility] Work Phone: Comment on above: Expected: 01/07/2024 (Approximate), Expi res: 11/30/2024 Start: 01-07-2024 End: 11-30-2024 C reactive protein [Mass/volume] in Serum or Plasma C-REACTIVE PROTEIN (CRP) Lab Routine Cystic fibrosis (HCC) 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) 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) Dietary counseling and surveillance Vitamin D deficiency Expected: 01/07/2024 (Approximate), Expires: 11/30/2024 [facility] Work Phone: Comment on above: Expected: 01/07/2024 (Approximate), Expi res: 11/30/2024 Start: 01-07-2024 End: 11-30-2024 CBC W Auto Differential panel - Blood CBC + DIFF Lab Routine Cystic fibrosis (HCC) 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) 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) Dietary counseling and surveillance Vitamin D deficiency Expected: 01/07/2024 (Approximate), Expires: 11/30/2024 [facility] Work Phone: Comment on above: Expected: 01/07/2024 (Approximate), Expi res: 11/30/2024 Start: 01-07-2024 End: 11-30-2024 Comprehensive metabolic 2000 panel - Serum or Plasma COMP METABOLIC PANEL Lab Routine Cystic fibrosis (HCC) 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) 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) Dietary counseling and surveillance Vitamin D deficiency Expected: 01/07/2024 (Approximate), Expires: 11/30/2024 [facility] Work Phone: Comment on above: Expected: 01/07/2024 (Approximate), Expi res: 11/30/2024 Start: 01-07-2024 End: 11-30-2024 Erythrocyte sedimentation rate SED RATE WESTERGREN Lab Routine Cystic fibrosis (HCC) 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) 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) Dietary counseling and surveillance Vitamin D deficiency Expected: 01/07/2024 (Approximate), Expires: 11/30/2024 [facility] Work Phone: Comment on above: Expected: 01/07/2024 (Approximate), Expi res: 11/30/2024 Start: 01-07-2024 End: 11-30-2024 Gamma glutamyl transferase [Enzymatic activity/volume] in Serum or Plasma GGT BLD Lab Routine Cystic fibrosis (HCC) 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) 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) Dietary counseling and surveillance Vitamin D deficiency Expected: 01/07/2024 (Approximate), Expires: 11/30/2024 [facility] Work Phone: Comment on above: Expected: 01/07/2024 (Approximate), Expi res: 11/30/2024 Start: 01-07-2024 End: 11-30-2024 Hemoglobin A1c in Blood HGB A1C Lab Routine Cystic fibrosis (HCC) 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) 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) Dietary counseling and surveillance Vitamin D deficiency Expected: 01/07/2024 (Approximate), Expires: 11/30/2024 [facility] Work Phone: Comment on above: Expected: 01/07/2024 (Approximate), Expi res: 11/30/2024 Start: 01-07-2024 End: 11-30-2024 IgE [Units/volume] in Serum or Plasma IGE BLD Lab Routine Cystic fibrosis (HCC) 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) 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) Dietary counseling and surveillance Vitamin D deficiency Expected: 01/07/2024 (Approximate), Expires: 11/30/2024 [facility] Work Phone: Comment on above: Expected: 01/07/2024 (Approximate), Expi res: 11/30/2024 Start: 01-07-2024 End: 11-30-2024 Lipid 1996 panel - Serum or Plasma LIPID PANEL BASIC Lab Routine Cystic fibrosis (HCC) 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) 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) Dietary counseling and surveillance Vitamin D deficiency Expected: 01/07/2024 (Approximate), Expires: 11/30/2024 [facility] Work Phone: Comment on above: Expected: 01/07/2024 (Approximate), Expi res: 11/30/2024 Start: 01-07-2024 End: 11-30-2024 Magnesium [Mass/volume] in Serum or Plasma MAGNESIUM BLD Lab Routine Cystic fibrosis (HCC) 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) 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) Dietary counseling and surveillance Vitamin D deficiency Expected: 01/07/2024 (Approximate), Expires: 11/30/2024 [facility] Work Phone: Comment on above: Expected: 01/07/2024 (Approximate), Expi res: 11/30/2024 Start: 01-07-2024 End: 11-30-2024 PT panel - Platelet poor plasma by Coagulation assay PROTHROMBIN TIME/PT Lab Routine Cystic fibrosis (HCC) 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) 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) Dietary counseling and surveillance Vitamin D deficiency Expected: 01/07/2024 (Approximate), Expires: 11/30/2024 [facility] Work Phone: Comment on above: Expected: 01/07/2024 (Approximate), Expi res: 11/30/2024 Start: 01-07-2024 End: 11-30-2024 Retinol [Mass/volume] in Serum or Plasma VITAMIN A/RETINOL Lab Routine Cystic fibrosis (HCC) 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) Diabetes mellitus related to CF (cystic fibrosis) ([facility]) Dietary counseling and surveillance Vitamin D deficiency Expected: 01/07/2024 (Approximate), Expires: 11/30/2024 [facility] Work Phone: Comment on above: Expected: 01/07/2024 (Approximate), Expi res: 11/30/2024 Start: 01-03-2024 Hemoglobin A1c measurement HbA1C [facility] Start: 01-03-2024 Hemoglobin A1c/Hemoglobin.total in Blood HBA1C [facility] Start: 12-19-2023 Glaucoma screening Dilated Retinal Exam [facility] Start: 12-19-2023 Hepatitis C antibody, confirmatory test DILATED RETINAL EXAM [facility] Start: 11-05-2023 3 comp foot exam completed DIABETIC FOOT EXAM [facility] Start: 09-07-2023 Hemoglobin A1c/Hemoglobin.total in Blood HBA1C [facility] Start: 08-21-2023 End: 10-21-2023 Comprehensive metabolic 2000 panel - Serum or Plasma COMP METABOLIC PANEL Lab Routine Cystic fibrosis ([facility]) Expected: 08/21/2023, Expires: 10/21/2023 [facility] Work Phone: Comment on above: Expected: 08/21/2023, Expires: 3 Start: 08-18-2023 End: 10-18-2023 Ferritin [Mass/volume] in Serum or Plasma [facility] Work Phone: Comment on above: Expected: 08/18/2023, Expires: 3 Start: 08-18-2023 End: 10-18-2023 Folate [Mass/volume] in Serum or Plasma [facility] Work Phone: Comment on above: Expected: 08/18/2023, Expires: 3 Start: 08-18-2023 End: 10-18-2023 Iron and Iron binding capacity panel - Serum or Plasma [facility] Work Phone: Comment on above: Expected: 08/18/2023, Expires: 3 Start: 08-18-2023 End: 10-18-2023 Methylmalonate [Moles/volume] in Serum or Plasma [facility] Work Phone: Comment on above: Expected: 08/18/2023, Expires: 3 Start: 08-18-2023 End: 10-18-2023 Transferrin receptor.soluble [Mass/volume] in Serum or Plasma [facility] Work Phone: Comment on above: Expected: 08/18/2023, Expires: 3 Start: 08-01-2023 Covid-19 Vaccine () Covid-19 Vaccine () [facility] Start: 08-01-2023 Influenza vaccination [facility] Start: 07-28-2023 Hepatitis B screening URINE ALBUMIN:CREATININE RATIO [facility] Start: 05-14-2023 CMP CF CMP CF [facility] Start: 05-13-2023 CBC CF CBC [facility] Start: 05-12-2023 Urinalysis CF Urinalysis [facility] Start: 04-07-2023 End: 06-07-2023 Thyrotropin [Units/volume] in Serum or Plasma TSH BLD Lab Routine Type 1 diabetes mellitus with hyperglycemia (HCC) Expected: 04/07/2023, Expires: 06/07/2023 [facility] Work Phone: Comment on above: Expected: 04/07/2023, Expires: 3 Start: 02-26-2023 End: 04-28-2023 Comprehensive metabolic 2000 panel - Serum or Plasma [facility] Work Phone: Comment on above: Expected: 02/26/2023, Expires: 3 Start: 02-15-2023 Hepatitis C antibody, confirmatory test DILATED RETINAL EXAM [facility] Start: 02-03-2023 Hemoglobin A1c/Hemoglobin.total in Blood HBA1C [facility] Start: 12-20-2022 End: 02-19-2023 Thyrotropin [Units/volume] in Serum or Plasma TSH BLD Lab Routine Type 1 diabetes mellitus with hyperglycemia (HCC) Expected: 12/20/2022, Expires: 02/19/2023 [facility] Work Phone: Comment on above: Expected: 12/20/2022, Expires: 3 Start: 12-06-2022 Vitamin A CF Vitamin A [facility] Start: 12-06-2022 Vitamin D 25 Hydroxy CF Vitamin D 25 Hydroxy CF [facility] Start: 12-06-2022 Vitamin E CF Vitamin E [facility] Start: 12-01-2022 DEPRESSION ASSESSMENT DEPRESSION ASSESSMENT [facility] Start: 11-29-2022 End: 01-29-2023 Comprehensive metabolic 2000 panel - Serum or Plasma COMP METABOLIC PANEL Lab Routine Cystic fibrosis with pulmonary manifestations (HCC) Expected: 11/29/2022, Expires: 01/29/2023 [facility] Work Phone: Comment on above: Expected: 11/29/2022, Expires: 3 Start: 11-20-2022 End: 01-20-2023 Phosphate [Mass/volume] in Serum or Plasma [facility] Work Phone: Comment on above: Expected: 11/20/2022, Expires: 3 Start: 11-18-2022 End: 01-18-2023 CBC W Auto Differential panel - Blood CBC + DIFF Lab Routine Cystic fibrosis with pulmonary manifestations (HCC) Expected: 11/18/2022, Expires: 01/18/2023 [facility] Work Phone: Comment on above: Expected: 11/18/2022, Expires: 3 Start: 11-18-2022 End: 01-18-2023 Comprehensive metabolic 2000 panel - Serum or Plasma COMP METABOLIC PANEL Lab Routine Cystic fibrosis with pulmonary manifestations (HCC) Expected: 11/18/2022, Expires: 01/18/2023 [facility] Work Phone: Comment on above: Expected: 11/18/2022, Expires: 3 Start: 11-18-2022 End: 01-18-2023 Hepatic function 2000 panel - Serum or Plasma HEPATIC FUNCTION PNL Lab Routine Cystic fibrosis with pulmonary manifestations (HCC) Expected: 11/18/2022, Expires: 01/18/2023 [facility] Work Phone: Comment on above: Expected: 11/18/2022, Expires: 3 Start: 11-18-2022 End: 01-18-2023 Magnesium [Mass/volume] in Serum or Plasma MAGNESIUM BLD Lab Routine Cystic fibrosis with pulmonary manifestations (HCC) Expected: 11/18/2022, Expires: 01/18/2023 [facility] Work Phone: Comment on above: Expected: 11/18/2022, Expires: 3 Start: 10-17-2022 Hemoglobin A1c/Hemoglobin.total in Blood HBA1C [facility] Start: 09-11-2022 End: 11-11-2022 Comprehensive metabolic 2000 panel - Serum or Plasma [facility] Work Phone: Comment on above: Expected: 09/11/2022, Expires: 2 Start: 09-10-2022 3 comp foot exam completed DIABETIC FOOT EXAM [facility] Start: 08-09-2022 End: 10-09-2022 Comprehensive metabolic 1999 panel - Serum or Plasma COMP METABOLIC PANEL Lab Routine Cystic fibrosis (HCC) Expected: 08/09/2022, Expires: 10/09/2022 [facility] Work Phone: Comment on above: Expected: 08/09/2022, Expires: 2 Start: 08-01-2022 FLU (Season Ended) FLU (Season Ended) [facility] Start: 08-01-2022 Influenza vaccination [facility] Start: 2022 End: 09-16-2022 Alpha tocopherol [Mass/volume] in Serum or Plasma [facility] Work Phone: Comment on above: Expected: 2022, Expires: 2 Start: 2022 End: 09-16-2022 Retinol [Mass/volume] in Serum or Plasma [facility] Work Phone: Comment on above: Expected: 2022, Expires: 2 Start: 06-23-2022 Hemoglobin A1c/Hemoglobin.total in Blood HBA1C [facility] Start: 05-29-2022 Tetanus Diphtheria and Pertussis Vaccines (7 - Td or Tdap) Tetanus Diphtheria and Pertussis Vaccines (7 - Td or Tdap) [facility] Start: 05-29-2022 Urine microalbumin profile [facility] Start: 03-19-2022 GGT CF GGT CF [facility] Start: 03-19-2022 HbA1c CF HbA1c CF [facility] Start: 03-19-2022 IgE CF IgE CF [facility] Start: 03-19-2022 Lipid Panel CF Lipid Panel [facility] Start: 03-19-2022 PT/INR CF PT/INR CF [facility] Start: 03-19-2022 Urine Microalbumin CF Urine Microalbumin CF [facility] Start: 02-12-2022 Hepatitis B screening URINE ALBUMIN:CREATININE RATIO [facility] Start: 02-12-2022 Hepatitis B surface antibody level LDL CHOLESTEROL [facility] Start: 01-30-2022 COVID-19 VACCINE (4 - Booster for Pfizer series) COVID-19 VACCINE (4 - Booster for Pfizer series) [facility] Start: 12-01-2021 DEPRESSION ASSESSMENT DEPRESSION ASSESSMENT [facility] Start: 11-03-2019 Testosterone Level CF Testosterone Level [facility] Start: 2012 HEPATITIS A (1 of 2 - Risk 2-dose series) HEPATITIS A (1 of 2 - Risk 2-dose series) [facility] Start: 2012 Hepatitis A Vaccine (1 of 2 - Risk 2-dose series) Hepatitis A Vaccine (1 of 2 - Risk 2-dose series) [facility] Start: 2011 ANNUAL PCP TEAM CHRONIC DISEASE VISIT ANNUAL PCP TEAM CHRONIC DISEASE VISIT [facility] Start: 2011 BP CONTROLLED (<130/80) BP CONTROLLED (<130/80) [facility] Start: 2011 HEPATITIS C SCREENING HEPATITIS C SCREENING [facility] Start: 2011 HIV SCREENING HIV SCREENING [facility] Start: 2011 HIV screening HIV Screening [facility] Start: 2009 MenB (1 of 2 - MenB 2-Dose Series) MenB (1 of 2 - MenB 2-Dose Series) [facility] Start: 2009 ONE PNEUMOVAX PRIOR TO AGE 65 ONE PNEUMOVAX PRIOR TO AGE 65 [facility] Start: 2005 Adult depression screening assessment DEPRESSION SCREENING [facility] Start: 07-11-1999 Varicella (1 of 2 - 2-dose childhood series) Varicella (1 of 2 - 2-dose childhood series) [facility] Start: 1994 HEPATITIS A (1 of 2 - Risk 2-dose series) HEPATITIS A (1 of 2 - Risk 2-dose series) [facility] AFB CULTURE & STAIN FOR PATIENTS WITH CYSTIC FIBROSIS AFB CULTURE & STAIN FOR PATIENTS WITH CYSTIC FIBROSIS Microbiology Routine Cystic fibrosis ([facility]) Ordered: 01/31/2025 [facility] Work Phone: Comment on above: Ordered: 01/31/2025 AFB CULTURE/STAIN CY STIC FIBROSIS AFB CULTURE/STAIN CYSTIC FIBROSIS Microbiology Routine Cystic fibrosis with pulmonary manifestations ([facility]) 2022 9:39 AM EDT [facility] Work Phone: AFB CULTURE/STAIN CY STIC FIBROSIS AFB CULTURE/STAIN CYSTIC FIBROSIS Microbiology Routine CF (cystic fibrosis) ([facility]) 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 Ordered: 09/11/2022 [facility] Work Phone: Comment on above: Ordered: 09/11/2022 AFB CULTURE/STAIN CY STIC FIBROSIS AFB CULTURE/STAIN CYSTIC FIBROSIS Microbiology Routine Cystic fibrosis ([facility]) Ordered: 02/18/2024 [facility] Work Phone: Comment on above: Ordered: 02/18/2024 Bacteria identified in Sputum by Cystic fibrosis respiratory culture CYSTIC FIBROSIS RESPIRATORY CULTURE Microbiology Routine Cystic fibrosis with pulmonary manifestations ([facility]) 2022 9:39 AM EDT [facility] Work Phone: Bacteria identified in Sputum by Cystic fibrosis respiratory culture CYSTIC FIBROSIS RESPIRATORY CULTURE Microbiology Routine CF (cystic fibrosis) ([facility]) 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 Ordered: 09/11/2022 [facility] Work Phone: Comment on above: Ordered: 09/11/2022 Bacteria identified in Sputum by Cystic fibrosis respiratory culture CYSTIC FIBROSIS RESPIRATORY CULTURE Microbiology Routine Cystic fibrosis with pulmonary manifestations (HCC) 03/05/2023 5:02 PM EDT [facility] Work Phone: Bacteria identified in Sputum by Cystic fibrosis respiratory culture CYSTIC FIBROSIS RESPIRATORY CULTURE Microbiology Routine Cystic fibrosis with pulmonary manifestations (HCC) 06/04/2023 4:27 PM EDT [facility] Work Phone: Bacteria identified in Sputum by Cystic fibrosis respiratory culture CYSTIC FIBROSIS RESPIRATORY CULTURE Microbiology Routine Cystic fibrosis ([facility]) Ordered: 02/18/2024 [facility] Work Phone: Comment on above: Ordered: 02/18/2024 Bacteria identified in Sputum by Cystic fibrosis respiratory culture CYSTIC FIBROSIS RESPIRATORY CULTURE Microbiology Routine Cystic fibrosis with pulmonary exacerbation (HCC) 08/18/2024 3:54 PM EDT [facility] Work Phone: Bacteria identified in Sputum by Cystic fibrosis respiratory culture BACTERIAL CULTURE, RESPIRATORY, CYSTIC FIBROSIS Microbiology Routine Cystic fibrosis ([facility]) Ordered: 01/31/2025 [facility] Comment on above: Ordered: 01/31/2025 Bacteria identified in Sputum by Cystic fibrosis respiratory culture BACTERIAL CULTURE, RESPIRATORY, CYSTIC FIBROSIS Microbiology Routine Cystic fibrosis ([facility]) Fever, unspecified fever cause 02/09/2025 11:03 AM T [facility] End: 11-29-2023 CBC W Auto Differential panel - Blood [facility] Work Phone: Comment on above: 99 Occurrences starting 11/29/2022 until 11/29/2023 2x per week for 6 Oc currences starting 11/29/2022 until 11/29/2023, 1 completed End: 08-18-2025 CBC W Auto Differential panel - Blood COMPLETE BLOOD COUNT AND DIFFERENTIAL Lab Routine Cystic fibrosis with pulmonary exacerbation (HCC) 2x per week for 10 Occurrences starting 08/18/2024 until 08/18/2025 [facility] Work Phone: Comment on above: 2x per week for 10 Occurrences starting 08/18/2024 until 08/18/2025 CBC W Ordered Manual Differential panel - Blood PATHOLOGIST INTERPRETATION WITH CBC AND DIFF Lab Routine 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 Routine times: 0600; 1100; 1400; 1900; 2200 for 1 Occurrences starting 05/12/2022 until 05/12/2022 [facility] Comment on above: For lab collect this frequency defaults to the next routine lab draw time. Routine times: 0600; 1100; 1400; 1900; 2200 for 1 Occurrences starting 05/12/2022 until 05/12/2022 End: 11-29-2023 Comprehensive metabolic 2000 panel - Serum or Plasma [facility] Work Phone: Comment on above: 99 Occurrences starting 11/29/2022 until 11/29/2023 2x per week for 6 Oc currences starting 11/29/2022 until 11/29/2023, 1 completed End: 08-18-2025 Comprehensive metabolic 2000 panel - Serum or Plasma COMPREHENSIVE METABOLIC PANEL Lab Routine Cystic fibrosis with pulmonary exacerbation (HCC) 2x per week for 10 Occurrences starting 08/18/2024 until 08/18/2025 [facility] Comment on above: 2x per week for 10 Occurrences starting 08/18/2024 until 08/18/2025 Continuous glucose monitoring analysis i&r GLUCOSE MONITOR, 72 HOUR, PHYS INTERP Procedures Routine Type 1 diabetes mellitus with hyperglycemia (HCC) Ordered: 12/22/2022 [facility] Work Phone: Comment on above: Ordered: 12/22/2022 Continuous glucose monitoring analysis i&r GLUCOSE MONITOR, 72 HOUR, PHYS INTERP Procedures Routine Type 1 diabetes mellitus with hyperglycemia (HCC) Ordered: 04/07/2023 [facility] Work Phone: Comment on above: Ordered: 04/07/2023 Continuous glucose monitoring analysis i&r GLUCOSE MONITOR, 72 HOUR, PHYS INTERP Procedures Routine Type 1 diabetes mellitus with hyperglycemia (HCC) Ordered: 08/11/2023 [facility] Work Phone: Comment on above: Ordered: 08/11/2023 Continuous glucose monitoring analysis i&r GLUCOSE MONITOR, 72 HOUR, PHYS INTERP Procedures Routine Type 1 diabetes mellitus with hyperglycemia (HCC) Ordered: 03/09/2024 [facility] Work Phone: Comment on above: Ordered: 03/09/2024 Continuous glucose monitoring analysis i&r GLUCOSE MONITOR, 72 HOUR, PHYS INTERP Procedures Routine Type 1 diabetes mellitus with hyperglycemia (HCC) Ordered: 07/06/2024 [facility] Comment on above: Ordered: 07/06/2024 Continuous glucose monitoring analysis i&r GLUCOSE MONITOR, 72 HOUR, PHYS INTERP Procedures Routine Type 1 diabetes mellitus with hyperglycemia (HCC) Ordered: 10/12/2024 [facility] Work Phone: Comment on above: Ordered: 10/12/2024 Continuous glucose monitoring analysis i&r GLUCOSE MONITOR, 72 HOUR, PHYS INTERP Procedures Routine Type 1 diabetes mellitus with hyperglycemia (HCC) Ordered: 02/14/2025 [facility] Work Phone: Comment on above: Ordered: 02/14/2025 COVID & INFLUENZA A/ B & RSV PCR, ROUTINE COVID & INFLUENZA A/B & RSV PCR, ROUTINE Microbiology Routine Fever, unspecified fever cause Acute cough Cystic fibrosis (HCC) Ordered: 01/31/2025 [facility] Comment on above: Ordered: 01/31/2025 DDI VIBRATION CONTRO LLED TRANSIENT ELASTOGRAPHY (VCTE) DDI VIBRATION CONTROLLED TRANSIENT ELASTOGRAPHY (VCTE) Procedures Routine Cystic fibrosis with liver disease (HCC) Ordered: 07/21/2022 [facility] Work Phone: Comment on above: Ordered: [...] osteoporosis 1 Occurrences starting 07/21/2022 until 08/20/2023 [facility] Work Phone: Comment on above: 1 Occurrences starting 07/21/2022 until 08/20/2023 End: 08-30-2024 Dxa bone density study axial skeleton DXA-AXIAL SKELETON WITH VFA Radiology Routine Osteoporosis without current pathological fracture, unspecified osteoporosis type 1 Occurrences starting 08/01/2023 until 08/30/2024 [facility] Work Phone: Comment on above: 1 Occurrences starting 08/01/2023 until 08/30/2024 Dxa bone density rut dy axial skeleton DXA-AXIAL SKELETON WITH VFA Radiology Routine Osteoporosis without current pathological fracture, unspecified osteoporosis type 09/24/2023 9:35 AM EDT [facility] Work Phone: End: 06-04-2025 DXA Skeletal system.axial Views for bone density and vertebral fracture DXA-AXIAL SKELETON WITH VFA Radiology Routine Cystic fibrosis (HCC) 1 Occurrences starting 05/05/2024 until 06/04/2025 [facility] Work Phone: Comment on above: 1 Occurrences starting 05/05/2024 until 06/04/2025 End: 07-21-2023 Echocardiography ECHO Cardiology Routine Cystic fibrosis with pulmonary manifestations (HCC) 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) Chronic pansinusitis Low weight Encounter for screening for osteoporosis 1 Occurrences starting 07/21/2022 until 07/21/2023 [facility] Work Phone: Comment on above: 1 Occurrences starting 07/21/2022 until 07/21/2023 Hemoglobin A1c/Hemoglobin.total in Blood HEMOGLOBIN A1C (POC) Lab Routine Type 1 diabetes mellitus with hyperglycemia (HCC) Ordered: 03/09/2024 [facility] Work Phone: Comment on above: Ordered: 03/09/2024 Hemoglobin A1c/Hemoglobin.total in Blood HEMOGLOBIN A1C (POC) Lab Routine Type 1 diabetes mellitus with hyperglycemia (HCC) Ordered: 07/06/2024 [facility] Work Phone: Comment on above: Ordered: 07/06/2024 End: 11-29-2023 Magnesium [Mass/volume] in Serum or Plasma [facility] Work Phone: Comment on above: 99 Occurrences starting 11/29/2022 until 11/29/2023 2x per week for 6 Oc currences starting 11/29/2022 until 11/29/2023, 1 completed End: 08-18-2025 Magnesium [Mass/volume] in Serum or Plasma MAGNESIUM Lab Routine Cystic fibrosis with pulmonary exacerbation ([facility]) 2x per week for 10 Occurrences starting 08/18/2024 until 08/18/2025 [facility] Comment on above: 2x per week for 10 Occurrences starting 08/18/2024 until 08/18/2025 Microorganism identi fied in Unspecified specimen by Culture FUNGAL CULT + SMEAR Microbiology Routine Cystic fibrosis with pulmonary manifestations ([facility]) 2022 9:39 AM EDT [facility] Work Phone: Microorganism identi fied in Unspecified specimen by Culture FUNGAL CULT + SMEAR Microbiology Routine CF (cystic fibrosis) ([facility]) 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 Ordered: 09/11/2022 [facility] Work Phone: Comment on above: Ordered: 09/11/2022 Microorganism identi fied in Unspecified specimen by Culture FUNGAL CULT + SMEAR Microbiology Routine Cystic fibrosis ([facility]) Ordered: 02/18/2024 [facility] Work Phone: Comment on above: Ordered: 02/18/2024 Microorganism identi fied in Unspecified specimen by Culture FUNGAL CULTURE AND SMEAR (NON DERMAL) Microbiology Routine Cystic fibrosis ([facility]) Ordered: 01/31/2025 [facility] Comment on above: Ordered: 01/31/2025 End: 05-12-2022 Respiratory culture Respiratory culture Microbiology Routine For lab collect this frequency defaults to the next routine lab draw time. Routine times: 0600; 1100; 1400; 1900; 2200 for 1 Occurrences starting 05/12/2022 until 05/12/2022 [facility] Comment on above: For lab collect this frequency defaults to the next routine lab draw time. Routine times: 0600; 1100; 1400; 1900; 2200 for 1 Occurrences starting 05/12/2022 until 05/12/2022 End: 04-04-2023 SPIROMETRY BASELINE ONLY SPIROMETRY BASELINE ONLY PFT Routine Cystic fibrosis with pulmonary manifestations ([facility]) 1 Occurrences starting 03/12/2022 until 04/04/2023 [facility] Work Phone: Comment on above: 1 Occurrences starting 03/12/2022 until 04/04/2023 End: 08-20-2023 SPIROMETRY BASELINE ONLY SPIROMETRY BASELINE ONLY PFT Routine Cystic fibrosis with pulmonary manifestations (HCC) 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) 1 Occurrences starting 07/21/2022 until 08/20/2023 [facility] Work Phone: Comment on above: 1 Occurrences starting 07/21/2022 until 08/20/2023 SPIROMETRY BASELINE ONLY SPIROME TRY BASELINE ONLY PFT Routine Cystic fibrosis (HCC) 08/09/2022 10:00 AM EDT [facility] Work Phone: SPIROMETRY BASELINE ONLY SPIROME TRY BASELINE ONLY PFT Routine Cystic fibrosis with pulmonary manifestations (HCC) 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) 09/11/2022 8:38 AM EDT [facility] [employer] Work Phone: End: 09-27-2023 SPIROMETRY BASELINE ONLY SPIROMETRY BASELINE ONLY PFT Routine CF (cystic fibrosis) (HCC) 1 Occurrences starting 08/28/2022 until 09/27/2023 [facility] Work Phone: Comment on above: 1 Occurrences starting 08/28/2022 until 09/27/2023 SPIROMETRY BASELINE ONLY SPIROME TRY BASELINE ONLY PFT Routine Cystic fibrosis (HCC) 11/05/2022 11:28 AM [facility] Work Phone: End: 12-11-2023 SPIROMETRY BASELINE ONLY SPIROMETRY BASELINE ONLY PFT Routine Cystic fibrosis (HCC) 1 Occurrences starting 11/11/2022 until 12/11/2023 [facility] Work Phone: Comment on above: 1 Occurrences starting 11/11/2022 until 12/11/2023 End: 12-20-2023 SPIROMETRY BASELINE ONLY SPIROMETRY BASELINE ONLY PFT Routine Cystic fibrosis with pulmonary manifestations (HCC) Cystic fibrosis with pulmonary exacerbation (HCC) 1 Occurrences starting 11/20/2022 until 12/20/2023 [facility] Work Phone: Comment on above: 1 Occurrences starting 11/20/2022 until 12/20/2023 SPIROMETRY BASELINE ONLY SPIROME TRY BASELINE ONLY PFT Routine CF (cystic fibrosis) (HCC) 12/04/2022 3:26 PM EST [facility] Work Phone: End: 04-01-2024 SPIROMETRY BASELINE ONLY SPIROMETRY BASELINE ONLY PFT Routine Cystic fibrosis with pulmonary manifestations (HCC) 1 Occurrences starting 03/03/2023 until 04/01/2024 [facility] Work Phone: Comment on above: 1 Occurrences starting 03/03/2023 until 04/01/2024 End: 04-08-2024 SPIROMETRY BASELINE ONLY SPIROMETRY BASELINE ONLY PFT Routine Cystic fibrosis (HCC) 1 Occurrences starting 03/10/2023 until 04/08/2024 [facility] Work Phone: Comment on above: 1 Occurrences starting 03/10/2023 until 04/08/2024 End: 04-17-2024 SPIROMETRY BASELINE ONLY SPIROMETRY BASELINE ONLY PFT Routine Cystic fibrosis (HCC) 1 Occurrences starting 03/19/2023 until 04/17/2024 [facility] Work Phone: Comment on above: 1 Occurrences starting 03/19/2023 until 04/17/2024 SPIROMETRY BASELINE ONLY SPIROME TRY BASELINE ONLY PFT Routine Cystic fibrosis (HCC) 06/04/2023 3:30 PM EDT [facility] Work Phone: End: 07-03-2024 SPIROMETRY BASELINE ONLY SPIROMETRY BASELINE ONLY PFT Routine Cystic fibrosis with pulmonary manifestations (HCC) 1 Occurrences starting 06/04/2023 until 07/03/2024 [facility] Work Phone: Comment on above: 1 Occurrences starting 06/04/2023 until 07/03/2024 End: 10-23-2024 SPIROMETRY BASELINE ONLY SPIROMETRY BASELINE ONLY PFT Routine Cystic fibrosis with pulmonary manifestations (HCC) 1 Occurrences starting 09/24/2023 until 10/23/2024 [facility] Work Phone: Comment on above: 1 Occurrences starting 09/24/2023 until 10/23/2024 SPIROMETRY BASELINE ONLY SPIROME TRY BASELINE ONLY PFT Routine Cystic fibrosis with pulmonary manifestations (HCC) 05/05/2024 2:52 PM EDT [facility] Work Phone: End: 06-04-2025 SPIROMETRY BASELINE ONLY [place] [facility] Comment on above: 1 Occurrences starting 05/05/2024 until 06/04/2025 SPIROMETRY BASELINE ONLY SPIROME TRY BASELINE ONLY PFT Routine Cystic fibrosis with pulmonary manifestations (HCC) 08/18/2024 1:10 PM EDT [facility] Work Phone: End: 10-02-2025 SPIROMETRY BASELINE ONLY SPIROMETRY BASELINE ONLY PFT Routine Cystic fibrosis (HCC) 1 Occurrences starting 09/02/2024 until 10/02/2025 [facility] Work Phone: Comment on above: 1 Occurrences starting 09/02/2024 until 10/02/2025 End: 10-09-2025 SPIROMETRY BASELINE ONLY SPIROMETRY BASELINE ONLY PFT Routine Cystic fibrosis ([facility]) 1 Occurrences starting 09/09/2024 until 10/09/2025 [facility] Work Phone: Comment on above: 1 Occurrences starting 09/09/2024 until 10/09/2025 SPIROMETRY BASELINE ONLY SPIROME TRY BASELINE ONLY PFT Routine Cystic fibrosis (HCC) 10/06/2024 12:34 PM EST [facility] Work Phone: End: 11-05-2025 SPIROMETRY BASELINE ONLY SPIROMETRY BASELINE ONLY PFT Routine Cystic fibrosis (HCC) 1 Occurrences starting 10/06/2024 until 11/05/2025 [facility] Comment on above: 1 Occurrences starting 10/06/2024 until 11/05/2025 SPIROMETRY BASELINE ONLY SPIROME TRY BASELINE ONLY PFT Routine Cystic fibrosis with pulmonary manifestations (HCC) 01/05/2025 1:04 PM EST [facility] Work Phone: SPIROMETRY BASELINE ONLY SPIROME TRY BASELINE ONLY PFT Routine Cystic fibrosis (HCC) 02/09/2025 10:35 AM EDT [facility] Work Phone: End: 03-11-2026 SPIROMETRY BASELINE ONLY SPIROMETRY BASELINE ONLY PFT Routine Cystic fibrosis (HCC) 1 Occurrences starting 02/09/2025 until 03/11/2026 [facility] Work Phone: Comment on above: 1 Occurrences starting 02/09/2025 until 03/11/2026 End: 05-26-2026 SPIROMETRY BASELINE ONLY SPIROMETRY BASELINE ONLY PFT Routine Cystic fibrosis (HCC) 1 Occurrences starting 04/26/2025 until 05/26/2026 [facility] Work Phone: Comment on above: 1 Occurrences starting 04/26/2025 until 05/26/2026 End: 05-12-2022 Spirometry- on admission Spirometry- on admission PFT Routine One Time for 1 Occurrences starting 05/12/2022 until 05/12/2022 [facility] Work Phone: Comment on above: One [...] osteoporosis 1 Occurrences starting 07/21/2022 until 08/20/2023 [facility] Work Phone: Comment on above: 1 Occurrences starting 07/21/2022 until 08/20/2023 End: 11-29-2023 Vancomycin [Mass/volume] in Serum or Plasma --random VANCOMYCIN Lab Routine Cystic fibrosis with pulmonary manifestations (HCC) 2x per week for 6 Occurrences starting 11/29/2022 until 11/29/2023, 1 completed [facility] Work Phone: Comment on above: 2x per week for 6 Occurrences starting 1 until 11/29/2023, 1 completed End: 06-17-2024 XR ABDOMEN 1V SUPINE XR ABDOMEN 1V SUPINE Radiology Routine Cystic fibrosis (HCC) 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) 1 Occurrences starting 05/19/2023 until 06/17/2024 [facility] Work Phone: Comment on above: 1 Occurrences starting 05/19/2023 until 06/17/2024 XR Chest PA and Lateral XR CHEST 2V FRONTAL/LAT Radiology Routine Cystic fibrosis with pulmonary manifestations (HCC) 02/01/2025 11:44 AM EST [facility] Work Phone: [facility] Immunizations Immunization Date Immunization Notes Care Provider Chester aceves 12-04-2022 COVID-19 booster vaccine, age 12+ yr, bivalent (PFIZER-BIONTECH) [place] Work Phone: [facility] 12-04-2022 influenza, injectabl e, quadrivalent, contains preservative [place] Work Phone: [facility] 12-04-2022 influenza virus vacc ine, unspecified formulation Cheyanne Kraus [facility] 12-05-2021 PFIZER (purple cap) COVID-19, mRNA, LNP-S, 30mcg/0.3mL dose Sabina Larios MD Work Phone: [facility] Work Phone: 01-21-2021 PFIZER (purple cap) COVID-19, mRNA, LNP-S, 30mcg/0.3mL dose Sabina Larios MD Work Phone: [facility] 12-24-2020 PFIZER (purple cap) COVID-19, mRNA, LNP-S, 30mcg/0.3mL dose Sabina Larios MD Work Phone: [facility] 10-11-2019 influenza, injectabl e, quadrivalent, preservative free Miguelina Murray RN [facility] 07-28-2019 pneumococcal polysaccharide vaccine, 23 valent Miguelina Murray RN [facility] 05-26-2019 pneumococcal conjuga te vaccine, 13 valent Miguelina Murray RN [facility] 11-05-2018 influenza virus vacc ine, unspecified formulation Sabina Larios MD Work Phone: [facility] 11-05-2018 influenza, injectabl e, quadrivalent, contains preservative Miguelina Murray RN [facility] 11-05-2018 influenza, seasonal, injectable Miguelina Murray RN [facility] 09-02-2016 influenza, injectabl e, quadrivalent, preservative free Miguelina Murray [facility] 09-13-2013 Influenza Vaccine 0. 5 mL >= 3 Yr Trivalent Sabina Larios MD Work Phone: [facility] 09-13-2013 influenza, seasonal, injectable Miguelina Murray RN [facility] 05-29-2012 tetanus toxoid, redu juve diphtheria toxoid, and acellular pertussis vaccine, adsorbed Forrest Hale MD Work Phone: [facility] 05-27-2012 meningococcal polysaccharide (groups A, C, Y and W-135) diphtheria toxoid conjugate vaccine (MCV4P) Miguelina Murray RN [facility] 05-27-2012 Meningococcal, MCV4, unspecified conjugate formulation(groups A, C, Y and W-135) Forrest Hale MD Work Phone: [facility] 10-23-2011 influenza virus vacc ine, split virus (incl. purified surface antigen) Sabina Larios MD Work Phone: [facility] 10-23-2011 influenza, seasonal, injectable Miguelina Murray RN [facility] 10-23-2011 pneumococcal polysaccharide vaccine, 23 valent Miguelina Murray RN [facility] 10-03-2010 influenza virus vacc ine, whole virus Miguelina Murray RN [facility] 10-19-2009 novel influenza-H1N1 -09, preservative-free, injectable Miguelina Murray RN [facility] 01-08-2006 pneumococcal conjuga te vaccine, 7 valent Miguelina Murray RN [facility] 07-18-1999 diphtheria, tetanus toxoids and pertussis vaccine Forrest Hale MD Work Phone: [facility] Work Phone: 06-13-1999 measles, mumps and rubella virus vaccine Forrest Hale MD Work Phone: [facility] Work Phone: 07-16-1995 diphtheria, tetanus toxoids and pertussis vaccine Miguelina Murray RN [facility] 07-16-1995 haemophilus influenz ae type b vaccine, PRP-T conjugate Miguelina Murray RN [facility] 02-13-1995 diphtheria, tetanus toxoids and pertussis vaccine Forrest Hale MD Work Phone: [facility] Work Phone: 02-13-1995 haemophilus influenz ae type b vaccine, HbOC conjugate Forrest Hale MD Work Phone: [facility] Work Phone: 02-13-1995 haemophilus influenz ae type b vaccine, PRP-T conjugate Sabina Larios MD Work Phone: [facility] 02-13-1995 measles, mumps and rubella virus vaccine Forrest Hale MD Work Phone: [facility] Work Phone: 02-13-1995 poliovirus vaccine, inactivated Forrest Hale MD Work Phone: [facility] Work Phone: 02-13-1995 trivalent poliovirus vaccine, live, oral Sabina Larios MD Work Phone: [facility] 05-20-1994 diphtheria, tetanus toxoids and pertussis vaccine Forrest Hale MD Work Phone: [facility] Work Phone: 05-20-1994 haemophilus influenz ae type b vaccine, HbOC conjugate Forrest Hale MD Work Phone: [facility] Work Phone: 05-20-1994 haemophilus influenz ae type b vaccine, PRP-T conjugate Sabina Larios MD Work Phone: [facility] 05-20-1994 hepatitis B vaccine, adult dosage Sabina Larios MD Work Phone: [facility] 05-20-1994 hepatitis B vaccine, pediatric or pediatric/adolescent dosage Forrest Hale MD Work Phone: [facility] Work Phone: 05-20-1994 poliovirus vaccine, inactivated Forrest Hale MD Work Phone: [facility] Work Phone: 05-20-1994 trivalent poliovirus vaccine, live, oral Sabina Larios MD Work Phone: [facility] 01-11-1994 diphtheria and tetan us toxoids, adsorbed for pediatric use Sabina Larios MD Work Phone: [facility] 01-11-1994 diphtheria, tetanus toxoids and pertussis vaccine Forrest Hale MD Work Phone: [facility] Work Phone: 01-11-1994 haemophilus influenz ae type b vaccine, HbOC conjugate Forrest Hale MD Work Phone: [facility] Work Phone: 01-11-1994 haemophilus influenz ae type b vaccine, PRP-T conjugate Sabina Larios MD Work Phone: [facility] 01-11-1994 poliovirus vaccine, inactivated Forrest Hale MD Work Phone: [facility] Work Phone: 01-11-1994 trivalent poliovirus vaccine, live, oral Sabina Larios MD Work Phone: [facility] 1993 diphtheria and tetan us toxoids, adsorbed for pediatric use Sabina Larios MD Work Phone: [facility] 1993 diphtheria, tetanus toxoids and pertussis vaccine Forrest Hale MD Work Phone: [facility] Work Phone: 1993 haemophilus influenz ae type b vaccine, HbOC conjugate Forrest Hale MD Work Phone: [facility] Work Phone: 1993 haemophilus influenz ae type b vaccine, PRP-T conjugate Sabina Larios MD Work Phone: [facility] 1993 hepatitis B vaccine, adult dosage Sabina Larios MD Work Phone: [facility] 1993 hepatitis B vaccine, pediatric or pediatric/adolescent dosage Forrest Hale MD Work Phone: [facility] Work Phone: 1993 poliovirus vaccine, inactivated Forrest Hale MD Work Phone: [facility] Work Phone: 1993 trivalent poliovirus vaccine, live, oral Sabina Larios MD Work Phone: [facility] 1993 hepatitis B vaccine, adult dosage Sabina Larios MD Work Phone: [facility] 1993 hepatitis B vaccine, pediatric or pediatric/adolescent dosage Forrest Hale MD Work Phone: [facility] Work Phone: Payers Date Payer Category Payer Self-pay [id number] 2019 Medicaid [facility] [address] [facility] MED[facility] [id number] 2019-Present [phone] [address] [place] [address] Medicaid [id number] 2018 Medicaid [id number] 2018 Medicaid [id number] 2018 Unknown [id number] 2017 Unknown [id number]. [id number] 1993 Unknown [id number] 1993 Unknown [id number] 1993 Unknown [id number] [id number] 1993 Unknown [id number] [id number] 1993 Unknown [id number] 1993 Unknown [id number] [id number] 1993 Unknown [id number] 1993 Unknown [id number] Unknown [id number] Unknown [facility] [id number] Unknown [id number] Unknown [id number] Unknown [id number] [id number] Unknown [id number] [id number] Unknown [id number] [id number] Unknown [id number] [id number] Unknown [id number] [id number] Unknown [id number] [id number] Unknown [id number] [id number] Unknown [id number] [id number] Unknown [id number] Social History Date Type Detail Facility Start: 12-06-2021 End: 2022 Tobacco smoking status NHIS Never smoked tobacco [facility] Start: 12-24-2021 End: 02-14-2025 Alcohol intake Current non-drinker of alcohol (finding) [facility] Start: 1995 Sex Assigned At Male [facility] Start: 03-09-2022 End: 08-06-2022 Exposure to SARS-CoV-2 (event) Unable to assess [facility] Work Phone: Start: 12-06-2021 End: 04-07-2023 Cigarette pack-years [facility] Work Phone: Start: 12-06-2021 End: 2022 Tobacco use and exposure Smokeless tobacco non-user [facility] Start: 05-12-2022 Alcohol intake Current drinke r of alcohol (finding) [facility] Start: 03-12-2019 History SDOH Alcohol Comment drinks one beer a night [facility] Start: 12-06-2021 Tobacco Comment No ETS exposure. [facility] Start: 1995 Sex Assigned At Not on file A [facility] Start: 05-02-2022 End: 05-12-2022 Exposure to SARS-CoV-2 (event) Yes [facility] Start: 07-07-2022 End: 09-11-2022 Exposure to SARS-CoV-2 (event) Not sure [facility] Start: 07-29-2022 End: 03-10-2023 History SDOH Financial 5 [facility] Start: 07-29-2022 End: 03-10-2023 History SDOH Food Worry 1 [facility] Start: 07-29-2022 End: 03-10-2023 History SDOH Transport Med 2 [facility] Start: 07-06-2020 End: 07-06-2020 Tobacco smoking status NHIS Unknown if ever smoked [facility] Start: 07-04-2020 Heavy [facility] Start: 07-04-2020 None [facility] Start: 07-04-2020 With Family [facility] Start: 07-06-2020 Vapor [facility] Start: 04-07-2023 End: 06-04-2023 Tobacco use panel [facility] Work Phone: How hard is it for y ou to pay for the very basics like food, housing, medical care, and heating Not hard at all [facility] Work Phone: (I/We) worried roestte er (my/our) food would run out before (I/we) got money to buy more. Never true [facility] Work Phone: In the past 12 month s, was there a time when you were not able to pay the mortgage or rent on time? No [facility] Work Phone: Start: 09-08-2020 Gender identity Identifies as male gender (finding) [facility] Start: 09-08-2020 Sexual orientation Heterosexual (thao roberts) [facility] How hard is it for y ou to pay for the very basics like food, housing, medical care, and heating Somewhat hard [facility] Work Phone: Medical Equipment Procedure Code Equipment Code Equipment Original Text Equipment Identifier Dates [id number], [id number], [id number], [id number], [id number], [id number], [id number], [id number] Start: 09-10-2021 End: 02-14-2025 Comment on above: 5x/day 3x/day Use as instructed 3x /day Functional Status Date Assessment Result Facility 02-16-2024 Are you deaf, or do you have serious difficulty hearing No 02/16/2024 2:23 PM EDT Crystal Camargo, OLEKSANDR No [facility] 02-16-2024 Are you blind, or do you have serious difficulty seeing, even when wearing glasses No 02/16/2024 2:23 PM EDT Crystal Camargo, OLEKSANDR No [facility] 02-16-2024 Do you have serious difficulty walking or climbing stairs No 02/16/2024 2:23 PM EDT Crystal Camargo, OLEKSANDR No [facility] 02-16-2024 Do you have difficul ty dressing or bathing No 02/16/2024 2:23 PM EDT Crystal Camargo, OLEKSANDR No [facility] 02-16-2024 Because of a physica l, mental, or emotional condition, do you have difficulty doing errands alone such as visiting a physician's office or shopping No 02/16/2024 2:23 PM EDT Crystal Camargo, OLEKSANDR No [facility] Mental Status Date Assessment Result Facility 02-16-2024 Because of a physica l, mental, or emotional condition, do you have serious difficulty concentrating, remembering, or making decisions No 02/16/2024 2:23 PM EDT Crystal Camargo, OLEKSANDR No [facility] Clinical Notes 03-05-2022 to 04-08-2025 Telephone Encounter [...] mouth two times a day. Silke Amado [facility] 04-08-2025 Miscellaneous Notes Patient electronically sent a request for the following prescription(s) Date of Last Visit: 02/09/2025 Recommended Follow Up: n/a Date of Follow-Up: n/a Requested Prescriptions Pending Prescriptions Disp Refills doxycycline (VIBRA-TABS) 100 mg tablet 28 tablet 0 Sig: Take 1 tablet by mouth two times a day. Silke Amado documented in this encounter [facility] 04-06-2025 Telephone encounter Note Summary: Complex Medical Help Program Received a fax requesting providers signature for a complex Medical Help program for patient. Printed and place in folder near Admin desk. Once signed and completed it will be fax to the number provided. [facility] 04-06-2025 Miscellaneous Notes Summary: Complex Medical Help Program Received a fax requesting providers signature for a complex Medical Help program for patient. Printed and place in folder near Admin desk. Once signed and completed it will be fax to the number provided. documented in this encounter [facility] 04-04-2025 History of Presen t illness Narrative [...] approval? Other issues: Plan for visit: - [place] ordered and scheduled in [facility] visit in the summer? -can try to add on DEXA at that time - can get annual labs done when able (ordered) Fernando Zhang RD documented in this encounter [facility] 03-18-2025 Telephone encounter Note Medication: Pulmozyme Date Submitted: March 18, 2025 Prescribing Provider: Jennie Method of Submission: CoverMyMeds Outcome: TBD Outcome Date: TBD CALOS Stubbs [facility] 03-18-2025 Miscellaneous Notes Medication: Pulmozyme Date Submitted: March 18, 2025 Prescribing Provider: Jennie Method of Submission: CoverMyMeds Outcome: TBD Outcome Date: TBD CALOS Stubbs documented in this encounter [facility] 02-14-2025 Instructions Stephie Ramirez APRN.CNP - 02/14/2025 2:34 PM EDT Patient educated to have ophthalmology visits at least once a year. documented in this encounter [facility] 02-14-2025 Note HNO ID: [id number] Author: STEPHIE RAMIREZ APRN.CNP Service: ? Author [...] further kidney damage., 10/2022: prot/creat ratio in [facility], making appointment with nephrology, 07/2023: prot/creat ratio in [facility] Lipid Profile:10/2013: TC 111, HDL 42, LDL [...] results in care everywhere, 01/2020: labs in [facility], 07/2020; Alkaline Phosphatase 725 (45-117), ALT 77 (16-61), AST 163 (15-37), 12/2020: results in care everywhere., 03/2021: results In care everywhere, 12/2021: Alkaline Phosphatase 918 (38-113), bone percent 13.9%, liver percent 86.1 , 12/2022: liver function monitored by [facility] providers, 03/2023: in [facility], 08/2023: LFTS in [facility], 10/2023: LFTS in [facility], 03/2024: liver test in [facility], 10/2024: liver in [facility], 01/2025: liver in [facility] Dilated Eye Exam: Patient educated to have ophthalmology visits at least once a year. 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 08/2013: New patient visit for Cystic Fibrosis related Diabetes Previous diabetes related labs from [facility] and [facility]everywhere systems reviewed prior to today's office visit. [...] Elects no kristen (more content not included)... [facility] 02-14-2025 History of Presen t illness [...] results in care everywhere, 01/2020: labs in [facility], 07/2020; Alkaline Phosphatase 725 (45-117), ALT 77 (16-61), AST 163 (15-37), 12/2020: results in care everywhere., 03/2021: results In [facility] everywhere, 12/2021: Alkaline Phosphatase 918 (38-113), bone percent 13.9%, liver percent 86.1 , 12/2022: liver function monitored by [facility] providers, 03/2023: in epic, 08/2023: LFTS in epic, 10/2023: LFTS in [facility], 03/2024: liver test in [facility], 10/2024: liver in [facility], 01/2025: liver in [facility] Dilated Eye Exam: Patient educated to have ophthalmology visits at least once a year. 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 08/2013: New patient visit for Cystic Fibrosis related Diabetes [facility] to today's office visit. 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 Blood-Glucose Meter,Continuous (DEXCOM G7 SHIFT SUPERVISOR RN) misc For monitoring sugars glucagon (BAQSIMI) 3 mg/actuation nasal spray Use 1 [place]our in the nose as needed. May repeat [...] directed and REPLACE every 10 days Insulin [place], Disposable, (BD YARON 2ND GEN PEN NEEDLE) [...] which included preparing to see the patient, jqbo-to-[id number] patient care, completing clinical documentation, obtaining and/or [...] E08.9 - HEMOGLOBIN A1C (POC) Stephie Ramirez APRN.ACID CLEANER documented in this encounter [facility] 02-09-2025 Instructions Sally Schneider APRN.CNP - 02/09/2025 [...] up with Dr Kilgore as scheduled at [place] on April 06. documented in this encounter [facility] 02-09-2025 History of Presen t illness Narrative PULM FUNCTION: Provider: Sally Schneider APRN.CNP Spirometry: 1 documented in this encounter [facility] 02-09-2025 History of Presen t illness Narrative [...] up with Dr Kilgore as scheduled at [place] on April 06. 1. CYSTIC FIBROSIS PULMONARY [...] ---Referral to ENT for surgical eval. Appt [phone]. 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 Burke France in 2019 for [...] done: ---Following with Dr. 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 Blood-Glucose Meter,Continuous (DEXCOM G7 SHIFT SUPERVISOR RN) misc For monitoring sugars glucagon (BAQSIMI) 3 mg/actuation nasal spray Use 1 [place] in the nose as needed. May repeat [...] recent labs LAST LAB RESULTS: ---Reviewed in [facility] CBC with diff: WBC 15.83 02/08/2025 RBC 3.17 02/08/2025 Hemoglobin 9.0 02/08/2025 Hematocrit 28.1 02/08/2025 MCV 88.6 02/08/2025 MCH 28.4 02/08/2025 MCHC 32.0 02/08/2025 RDW-CV 13.8 02/08/2025 Platelet Count 394 02/08/2025 MPV 8.7 02/08/2025 Neutrophils % 81.1 02/08/2025 Lymph% 7.5 02/08/2025 Mccone% 9.5 02/08/2025 Eosin% 0.9 02/08/2025 Baso% 0.4 02/08/2025 Abs Neut (Segs + Bands) 12.84 02/08/2025 Abs Mccone 1.51 02/08/2025 Abs Eosin 0.14 02/08/2025 Abs [...] 11/20/2023 6.4 12/24/2021 7.5 SPIROMETRY: Reviewed in [facility] MICROBIOLOGY: Reviewed MICROBIOLOGY SNAPSHOT Written and verbal health teaching given to patient, patient verbalizes understanding and agrees with treatment plan. I spent a total of 50 minutes on the date of the service which included preparing to see the patient, [id number] patient care, completing clinical documentation, performing a medically appropriate examination, ordering medications, tests, or procedures, independently interpreting results (not separately reported), communicating results to the patient/family/caregiver, and care coordination (not separately reported). Electronically Signed: Sally Schneider CNP February 08, 2025 documented in this encounter [facility] 02-07-2025 Telephone encounter Note Opened in error [facility] Work Phone: 02-07-2025 Miscellaneous Notes Opened in error documented in this encounter [facility] 02-07-2025 History of Presen t illness Narrative [facility] Subjective Jay Barber is a 29 year [...] next course of action will be. Farrukh Goems MD documented in this encounter [facility] 02-07-2025 History of Presen t illness Narrative [...] PATIENT PRESENTS WITH AN IMPLANTABLE OR ATTACHED SECURITIES RESEARCH ANALYST: No RADIOLOGY DEPARTMENT: General X-ray: Exam(s) Completed: Chest X-Ray PERIPHERAL IV DATA: Not applicable SIGNED BY: Juanito Day February 07, 2025 11:23 AM documented in this encounter [facility] 02-01-2025 History of Presen t illness Narrative [...] PATIENT PRESENTS WITH AN IMPLANTABLE OR ATTACHED SECURITIES RESEARCH ANALYST: No RADIOLOGY DEPARTMENT: General X-ray: Exam(s) Completed: Chest X-Ray PERIPHERAL IV DATA: Not applicable SIGNED BY: Juanito Day February 01, 2025 11:44 AM documented in this encounter [facility] 01-31-2025 Telephone encounter Note Updated patient that a CXR has also been ordered for him to complete. [facility] 01-31-2025 Miscellaneous Notes Updated patient that a [...] any further instruction. documented in this encounter [facility] 01-31-2025 Telephone encounter Note Called and spoke [...] Will notify providers for any further instruction. [facility] 01-05-2025 History of Presen t illness Narrative PULM FUNCTION: Provider: Jean Pierre Kilgore MD Spirometry: 1 documented in this encounter [facility] 01-05-2025 History of Presen t illness Narrative [...] labs Follow up with Dr Kilgore at [facility] in 3 months HISTORY OF PRESENT ILLNESS: Jay Barber is a 29 year old male, here for follow-up of Cystic Fibrosis Courses of oral abx since last visit:0 Courses of IV abx since last visit:0 Prednisone use since last visit: 0 ED visits since last visit: 0 Hospitalizations since last visit: 0 CEYX/Phone Messages since last visit: 10/11/24: nurse left message regarding lab work (told to hydrate, repeat labs); repeated on 10/12/24 and improved, but still slightly elevated 11/10/24: requesting [employer] script INTERVAL HISTORY Has gradually smoldered since [...] infection with PsA, 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 Appt [phone]. 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 Burke France in 2019 for [...] done: ---Following with Dr. Francis Ramirez at [facility] OSTEOPOROSIS ---DEXA with annual visit (last done 2022, -2.5 to -3.1) Vitamin D 25 Hydroxy (ng/mL) Date Value 02/27/2024 32.4 ] Hemoglobin A1C Date Value Ref Range Status 02/03/2024 6.3 (H) 4.3 - 5.6 % Final Comment: [place] [employer] guidelines indicate that patients with HgbA1c in the range 5.7-6.4% are at increased risk for development of diabetes, and intervention by lifestyle modification may be beneficial. HgbA1c greater or equal to 6.5% is considered diagnostic of diabetes. Hemoglobin A1C (POCT) Date Value Ref Range Status 10/12/2024 6.3 (A) 4.3 - 5.6 % Final Comment: Location:[facility], [address], [address] Point of care (POC) Hemoglobin A1c (HGBA1C) [...] specific diabetes management situations: The POC device lacquer sizer provides a normal range of 4.2% to 6.5% for the HGBA1C POC test. However, the [place] [employer] guidelines indicate that patients with [...] (A) 4.3 - 5.6 % Final Comment: Location:[facility], [address] [place] [address], [facility] Point of care (POC) Hemoglobin A1c (HGBA1C) [...] specific diabetes management situations: The POC device lacquer sizer provides a normal range of 4.2% to 6.5% for the HGBA1C POC test. However, the [place] [employer] guidelines indicate that patients with [...] (A) 4.3 - 5.6 % Final Comment: [facility], [address] [place] [address], [id number] Point of care (POC) Hemoglobin A1c (HGBA1C) [...] specific diabetes management situations: The POC device lacquer sizer provides a normal range of 4.2% to 6.5% for the HGBA1C POC test. However, the [place] [employer] guidelines indicate that patients with [...] 6.4 4.2 - 5.6 % Final Comment: [facility], [address] [place] [address], [id number] Point of care (POC) Hemoglobin A1c (HGBA1C) [...] specific diabetes management situations: The POC device lacquer sizer provides a normal range of 4.2% to 6.5% for the HGBA1C POC test. 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 Blood-Glucose Meter,Continuous (DEXCOM G7 SHIFT SUPERVISOR RN) [facility] For monitoring sugars glucagon (BAQSIMI) 3 mg/actuation nasal spray Use 1 Montour in the nose as needed. May repeat [...] imaging results. LAST LAB RESULTS: ---Reviewed in [facility] CBC with diff: WBC 7.07 10/12/2024 RBC 3.20 10/12/2024 Hemoglobin 9.7 10/12/2024 Hematocrit 30.7 10/12/2024 MCV 95.9 10/12/2024 MCH 30.3 10/12/2024 MCHC 31.6 10/12/2024 RDW-CV 13.2 10/12/2024 Platelet Count 172 10/12/2024 MPV 10.3 10/12/2024 Neutrophils % 57.0 10/12/2024 Lymph% 21.6 10/12/2024 Mccone% 10.5 10/12/2024 Eosin% 9.3 10/12/2024 Baso% 1.3 10/12/2024 Abs Neut (Segs + Bands) 4.03 10/12/2024 Abs Mccone 0.74 10/12/2024 Abs Eosin 0.66 10/12/2024 Abs [...] (A) 4.3 - 5.6 % Final Comment: Location:[facility], [address] [place] [address], [facility] Point of care (POC) Hemoglobin A1c (HGBA1C) [...] specific diabetes management situations: The POC device lacquer sizer provides a normal range of 4.2% to 6.5% for the HGBA1C POC test. However, the [place] [employer] guidelines indicate that patients with [...] red blood cell lifespan. SPIROMETRY: Reviewed in [facility] SPIROMETRY BASELINE ONLY ([id number]) - ordered on 10/06/24 ID: [id number] Name: JAY BARBER Visit Date: 01/05/2025 Doctor: 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: Herber Montes Age: 29 Date of : [...] FEF75 (L/sec) 1.42 0.74 2.55 0.11 8 FNZ43-09 (L/sec) 3.62 2.23 5.35 0.20 5 FEF Max (L/sec) 8.48 6.69 10.27 3.74 44 FIVC (L) 2.32 FIF50 (L/sec) 2.58 FIF Max (L/sec) 3.12 Time (sec) 15.29 MACIEL (L) 0.02 Time To FEF Max (sec) 0.05 SPIROMETRY BASELINE ONLY ([id number]) - ordered on 09/09/24 ID: [id number] Name: JAY BARBER Race: White Ht: 61.61 [...] 2.28 FEF50/FIF50 0.11 90-100 FIVC (L) 2.13 VKC24-83 (L/sec) 0.20 2.24 3.63 5.36 5 Time (sec) 14.60 FET PEF (sec) 0.04 MACIEL (L) 0.02 Vol Extrap % (%) 1 SPIROMETRY BASELINE ONLY - 09/09/24 ID: [id number] Name: JAY BARBER Race: White Ht: 61.61 [...] 2.14 FEF50/FIF50 0.09 90-100 FIVC (L) 2.01 NSN55-96 (L/sec) 0.17 2.24 3.63 5.36 4 Time [...] with treatment plan. Return to clinic at [facility] [place] in 12 weeks, with spirometry (spirometry baseline). I spent a total of 65 minutes on the date of the service which included preparing to see the patient, [id number]-[id number] patient care, completing clinical documentation, obtaining and/or reviewing separately obtained history, performing a medically appropriate examination, counseling and educating the patient/family/caregiver, and ordering medications, tests, or procedures. Electronically Signed: January 05, 2025 documented in this encounter [facility] 12-30-2024 History of Presen t illness Narrative [...] OGTT/CFRD: +CFRD -> Follows with Tyler Ramirez, ACID CLEANER-last OV 10/12/24 Dexa: NEEDS - Last completed [...] visit: - Sj ordered and scheduled in [facility] visit in the summer? -can try to add on DEXA at that time documented in this encounter [facility] 11-16-2024 Telephone encounter Note Medication: Trikafta Date Submitted: November 16, 2024 Prescribing Provider: Sally Schneider CNP Method of Submission: Covermymeds Outcome: TBD Outcome Date: TBD Fernando Zhang RD [facility] Work Phone: 11-16-2024 Miscellaneous Notes Medication: Trikafta Date Submitted: November 16, 2024 Prescribing Provider: Sally Schneider CNP Method of Submission: Covermymeds Outcome: TBD Outcome Date: TBD Fernando Zhang RD documented in this encounter [facility] 10-14-2024 Telephone encounter Note Done spoke with the patient.Patient verbalized understanding. Crystal Bridges LPN October 14, 2024 2:00 PM [facility] 10-14-2024 Miscellaneous Notes Done spoke with the patient.Patient verbalized understanding. Crystal Bridges LPN October 14, 2024 2:00 PM 10/2024: TSH 1.81 (0.27-4.2 uIU/mL), Thyroid lab ok Please call patient, review message, then sign encounter. documented in this encounter [facility] 10-14-2024 Telephone encounter Note 10/2024: TSH 1.81 (0.27-4.2 uIU/mL), Thyroid lab ok Please call patient, review message, then sign encounter. [facility] 10-12-2024 History of Presen t illness Narrative [...] appointment with nephrology, 07/2023: prot/creat ratio in [facility] Lipid Profile:10/2013: TC 111, HDL 42, LDL [...] results in care everywhere, 01/2020: labs in [facility], 07/2020; Alkaline Phosphatase 725 (45-117), ALT 77 (16-61), AST 163 (15-37), 12/2020: results in care everywhere., 03/2021: results In [facility] everywhere, 12/2021: Alkaline Phosphatase 918 (38-113), bone percent 13.9%, liver percent 86.1 , 12/2022: liver function monitored by CF providers, 03/2023: in [facility], 08/2023: LFTS in [facility], 10/2023: LFTS in [facility], 03/2024: liver test in [facility], 10/2024: liver in [facility] Dilated Eye Exam: Patient educated to have ophthalmology visits at least once a year. 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 08/2013: New patient visit for Cystic Fibrosis related Diabetes [facility] reviewed prior to today's office visit. [...] (HCC) History of transfusion Hypertension Liver disease alf (current) use of insulin (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 Blood-Glucose Meter,Continuous (DEXCOM G7 SHIFT SUPERVISOR RN) [facility] For monitoring sugars glucagon (BAQSIMI) 3 mg/actuation nasal spray Use 1 Montour in the nose as needed. May repeat [...] 277.09, 249.00, ICD10: E84.8, E08.9 Stephie Ramirez APRN.ACID CLEANER documented in this encounter [facility] 10-12-2024 Note HNO ID: [id number] Author: STEPHIE RAMIREZ APRN.ACID CLEANER Service: ? Author Type: Nurse Practitioner Type: [...] further kidney damage., 10/2022: prot/creat ratio in [facility], making appointment with nephrology, 07/2023: prot/creat ratio in [facility] Lipid Profile:10/2013: TC 111, HDL 42, LDL [...] results in care everywhere, 01/2020: labs in [facility], 07/2020; Alkaline Phosphatase 725 (45-117), ALT 77 (16-61), AST 163 (15-37), 12/2020: results in care everywhere., 03/2021: results In care everywhere, 12/2021: Alkaline Phosphatase 918 (38-113), bone percent 13.9%, liver percent 86.1 , 12/2022: liver function monitored by CF providers, 03/2023: in [facility], 08/2023: LFTS in [facility], 10/2023: LFTS in [facility], 03/2024: liver test in epic, 10/2024: liver in [facility] Dilated Eye Exam: Patient educated to have ophthalmology visits at least once a year. 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 08/2013: New patient visit for Cystic Fibrosis related Diabetes Previous diabetes related labs from [facility] and [facility] systems reviewed prior to today's office [...] this time-we discussed (more content not included)... [facility] 10-11-2024 Telephone encounter Note Left message for patient explaining his kidney function and potassium were elevated on lab results from last appointment on 10/06/24. Explained the need to hydrate and requested he repeat CMP again today- depending on results, may need to take kayexalate. [facility] Work Phone: 10-11-2024 Miscellaneous Notes Left message for patient explaining his kidney function and potassium were elevated on lab results from last appointment on 10/06/24. Explained the need to hydrate and requested he repeat CMP again today- depending on results, may need to take kayexalate. documented in this encounter [facility] 10-06-2024 History of Presen t illness Narrative [...] visit ----Follow up with Dr Kilgore at [facility] on FriJan 05 with PFT 1. CYSTIC [...] ---Referral to ENT for surgical eval. Appt [phone]. 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 Burke France in 2019 for [...] ordered ---Following with Dr. Francis Ramirez at [facility] ---DEXA with ANNUAL SCREENING: ANNUAL LABS: [...] COVID-19 original vaccine, age 12+ yr, monovalent ([employer] - PURPLE TOP) 12/24/2020 01/21/2021 12/05/2021 COVID-19 vaccine, age 12+ yr, bivalent ([employer]IONTECH) 12/04/2022 Haemophilus influenzae b (HbOC) vaccine, 4-dose [...] vaccine, quadrivalent, unspecified formulation 05/27/2012 novel influenza (P0X2-97) vaccine, PF 10/19/2009 pneumococcal (PCV7) vaccine, 7 [...] (HCC) History of transfusion Hypertension Liver disease alf (current) use of insulin (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 Blood-Glucose Meter,Continuous (DEXCOM G7 SHIFT SUPERVISOR RN) misc For monitoring sugars glucagon (BAQSIMI) 3 mg/actuation nasal spray Use 1 Montour in the nose as needed. May repeat [...] recent labs LAST LAB RESULTS: ---Reviewed in [facility] CBC with diff: WBC 5.22 09/13/2024 RBC 2.91 09/13/2024 Hemoglobin 8.9 09/13/2024 Hematocrit 27.1 09/13/2024 MCV 93.1 09/13/2024 MCH 30.6 09/13/2024 MCHC 32.8 09/13/2024 RDW-CV 15.6 09/13/2024 Platelet Count 214 09/13/2024 MPV 9.9 09/13/2024 Neutrophils % 40.8 09/13/2024 Lymph% 28.4 09/13/2024 Mccone% 11.3 09/13/2024 Eosin% 17.4 09/13/2024 Baso% 1.9 09/13/2024 Abs Neut (Segs + Bands) 2.13 09/13/2024 Abs Mccone 0.59 09/13/2024 Abs Eosin 0.91 09/13/2024 Abs [...] 12/24/2021 7.5 09/10/2021 7.4 SPIROMETRY: Reviewed in [facility] MICROBIOLOGY: Reviewed MICROBIOLOGY SNAPSHOT Written and verbal health teaching given to patient, patient verbalizes understanding and agrees with treatment plan. I spent a total of 45 minutes on the date of the service which included preparing to see the patient, [id number] patient care, completing clinical documentation, performing a medically appropriate examination, ordering medications, tests, or procedures, independently interpreting results (not separately reported), communicating results to the patient/family/caregiver, and care coordination (not separately reported). Electronically Signed: Myrick CNP October 06, 2024 documented in this encounter [facility] 10-06-2024 History of Presen t illness Narrative PULM FUNCTION: Provider: Sally Schneider APRN.CNP Spirometry: 1 documented in this encounter [facility] 10-04-2024 History of Presen t illness Narrative [...] stock Other issues: Plan for visit: - [place] ordered and scheduled - follow up after completing home IV abx - Needs to complete DEXA (order in, add on to October visit, message sent to scheduling) documented in this encounter [facility] 09-28-2024 Telephone encounter Note Pharmacy calling for [...] and disregard albuterol nebs Fernando Zhang RD [facility] Work Phone: 09-28-2024 Miscellaneous Notes Pharmacy calling [...] Fernando Zhang RD documented in this encounter [facility] 09-27-2024 Telephone encounter Note Spoke with patient over the phone and confirmed was prescriptions he needed. Sent to Dr Pinon to fill Fernando Zhang RD [facility] Work Phone: 09-27-2024 Miscellaneous Notes Spoke with patient over the phone and confirmed was prescriptions he needed. Sent to Dr Turowski to fill Fernando Zhang RD documented in this encounter [facility] 09-16-2024 Note Addended by: SALLY SCHNEIDER on: 09/16/2024 10:27 AM Modules accepted: Orders [facility] 09-16-2024 Miscellaneous Notes Addended by: SALLY SCHNEIDER on: 09/16/2024 10:27 AM Modules accepted: Orders Verification that pts PICC line was pulled at [facility] today. Pt noted that he did take a single dose of the kayexalate yesterday. Communicated this with provider. Provider requested BMP today. SW notified pt and team. documented in this encounter [facility] 09-15-2024 Telephone encounter Note Verification that pts PICC line was pulled at [facility] today. Pt noted that he did take a single dose of the kayexalate yesterday. Communicated this with provider. Provider requested BMP today. SW notified pt and team. [facility] 09-15-2024 Telephone encounter Note Images from the original note were not included. [facility] 09-15-2024 Miscellaneous Notes Images from the original note were not included. Images from the original note were not included. documented in this encounter [facility] 09-15-2024 Telephone encounter Note Images from the original note were not included. [facility] 09-10-2024 Telephone encounter Note Reviewed pt's most recent lab results with him over the phone. Instructed him to increase water intake over the weekend as his BUN/Hogshead Opener are somewhat elevated. Pt agreeable. Patient has not yet heard back from [facility] regarding PICC removal - will re-fax orders to them again today. [facility] Work Phone: 09-10-2024 Miscellaneous Notes Reviewed pt's most recent lab results with him over the phone. Instructed him to increase water intake over the weekend as his BUN/Hogshead Opener are somewhat elevated. Pt agreeable. Patient has not yet heard back from [facility] regarding PICC removal - will re-fax orders to them again today. documented in this encounter [facility] 09-09-2024 History of Presen t illness Narrative [...] monitoring is being done and -------Labs in [facility] ---No significant changes in creatinine, LFTs, or [...] Friday ----We will arrange PICC removal at [facility] on 09/15 ----Refill sent for kayexelate as [...] ---Referral to ENT for surgical eval. Appt [phone]. 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 Burke France in 2019 for [...] ordered ---Following with Dr. Francis Ramirez at [facility] ---DEXA with CHIEF COMPLAINT: Cystic Fibrosis HISTORY OF PRESENT ILLNESS: Jay Barber is a 29 year old male, here for follow-up of Cystic Fibrosis Home IV abx therapy; starting to feel better. His appetite and fatigue has started to improve theh last couple days. 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 Rare sputum production. Dyspnea with exertion, but [...] (HCC) History of transfusion Hypertension Liver disease alf (current) use of insulin (HCC) Transfusion history Type 1 diabetes mellitus with hyperglycemia (HCC) PAST SURGICAL HISTORY Procedure Laterality Date PAST SURGICAL HISTORY OF splenal renal shunt to treat portal hypertension PICC LINE INSERT/CONSULT 03/08/2023 PICC LINE INSERT/CONSULT 02/03/2024 PICC LINE INSERTION (PICC TEAM) (AL) 08/19/2024 FAMILY HISTORY Problem Relation Age of [...] directed and REPLACE every 10 days Insulin Mabank, Disposable, (BD YARON 2ND GEN PEN NEEDLE) [...] times a week. Blood-Glucose Meter,Continuous (DEXCOM G7 SHIFT SUPERVISOR RN) misc For monitoring sugars glucagon (BAQSIMI) 3 mg/actuation nasal spray Use 1 Montour in the nose as needed. May repeat [...] recent labs LAST LAB RESULTS: ---Reviewed in [facility] Glucose (mg/dL) Date Value 09/08/2024 112 12/08/2015 [...] Neutrophils % 42.9 09/07/2024 Lymph% 31.7 09/07/2024 Mccone% 11.5 09/07/2024 Eosin% 11.1 09/07/2024 Baso% 2.6 09/07/2024 Abs Neut (Segs + Bands) 2.68 09/07/2024 Abs Mccone 0.72 09/07/2024 Abs Eosin 0.69 09/07/2024 Abs Baso 0.16 09/07/2024 SPIROMETRY: Reviewed in [facility] SPIROMETRY BASELINE ONLY ([id number]) - ordered on 09/09/24 No textual results for order. SPIROMETRY BASELINE ONLY ([id number]) - ordered on 08/18/24 No textual results for order. SPIROMETRY BASELINE ONLY ([id number]) - ordered on 05/05/24 No textual results for order. MICROBIOLOGY: Reviewed MICROBIOLOGY SNAPSHOT Written and verbal health teaching given to patient, patient verbalizes understanding and agrees with treatment plan. Electronically Signed: Sally Schneider CNP September 09, 2024 documented in this encounter [facility] 09-09-2024 History of Presen t illness Narrative PULM FUNCTION: Provider: Sally Schneider APRN.CNP Spirometry: 1 System: [facility] - [id number] documented in this encounter [facility] 09-03-2024 History of Presen t illness Narrative [...] OGTT/CFRD: +CFRD -> Follows with Tyler Ramirez, ACID CLEANER-last OV 07/06/24 Dexa: NEEDS - Last completed [...] for additional kayexalate -> 08/31/24: admitted to [facility] and given K cocktail (kayexalate, calcium [...] this appt ? documented in this encounter [facility] 09-03-2024 Telephone encounter Note Imported external medical records from [facility] (dated 09/03/24). Please allow time delay for documents to appear in [email or web address] (Scanned Documents Tab). [facility] 09-03-2024 Miscellaneous Notes Imported external medical records from [facility] (dated 09/03/24). Please allow time delay for documents to appear in Epic (Scanned Documents Tab). documented in this encounter [facility] 09-02-2024 Telephone encounter Note Patient called back [...] understands and agreeable to plan. Will have Move Coordinator request pt's medical records from [facility] and assist with getting him scheduled for next , 09/09/24. Called [facility] and extended his IV medications- they will be delivered to patient today. [facility] 09-02-2024 Miscellaneous Notes Patient called back and [...] understands and agreeable to plan. Will have Move Coordinator request pt's medical records from [facility] and assist with getting him scheduled for next , 09/09/24. Called [facility] pharmacy and extended his IV medications- they will be delivered to patient today. documented in this encounter [facility] 09-02-2024 Note [facility] Medical Records Department [address] [place] [address] Discharge Summary 09/02/24 1014 MR#: [id number] Acct: [id number] Name: JAY BARBER Rep #: [id number] : 1995 29 From: Anahi Wilder MD PCP: Care Physician,No Primary Status:DIS IN Location: [place] [id number] Providers Date of Admission: 09/01/24 Date of [...] for about 2 weeks. Follows up at [facility]. Has a PICC line in place. * [...] tablets 2 ea PO DAILY CF 11/14/19 sabxxf-qtxflurj-rggwzpl 36,000-114,000-180,000 unit capsule,delay rel 2 - 3 [...] PRN PRN wheezing 08/31/24 blood sugar diagnostic (P[employer] Verio test strips) 08/31/24 blood-glucose sensor ([employer] G7 Sensor device) 08/31/24 carvedilol 25 mg [...] for hyperkalemia. He usually followed up at [facility] for his cystic fibrosis and was being [...] course was complicate (more content not included)... [facility] 09-01-2024 Telephone encounter Note I spoke to Sydni from [facility] and I advised her that the patient does need another fill of this medication. She stated that she is still getting a denied claim. I provided her with the approved prior authorization number and she was going to call [employer] to see what needs to be done on the pharmacies end to get the claim to be approved. She stated she would call me back if she has any further problems. [facility] 09-01-2024 Miscellaneous Notes I spoke to Sydni from [facility] and I advised her that the patient does need another fill of this medication. She stated that she is still getting a denied claim. I provided her with the approved prior authorization number and she was going to call [email or web address] to see what needs to be done on the pharmacies end to get the claim to be approved. She stated she would call me back if she has any further problems. Sydni from [facility] called to confirm if the pt needs the second order of Sodium polystyrene sulfonate and if he does it requires a PA. She stated the pt picked up the first order already. PH: [phone] documented in this encounter [facility] 09-01-2024 Telephone encounter Note Sydni from [facility] called to confirm if the pt needs the second order of Sodium polystyrene sulfonate and if he does it requires a PA. She stated the pt picked up the first order already. PH: [phone] [facility] 08-31-2024 Telephone encounter Note Pt is currently in ER and the ER doc (Dr. Bal) there wants to talk about pt's CF [facility] 08-31-2024 Miscellaneous Notes Pt is currently in ER and the ER doc (Dr. Bal) there wants to talk about pt's CF documented in this encounter [facility] 08-31-2024 Telephone encounter Note Called patient and instructed him to go to the ED since we still have not received approval for the kayexalate. Explained to him that he will need to be on an ECG monitor and will need to receive kayexalate while he is there. Called [facility]'s ED and notified them of pt's plan to come in. [facility] Work Phone: 08-31-2024 Miscellaneous Notes Called patient and instructed him to go to the ED since we still have not received approval for the kayexalate. Explained to him that he will need to be on an ECG monitor and will need to receive kayexalate while he is there. Called [facility]'s ED and notified them of pt's plan to come in. New prior authorization needed - the prior auth completed yesterday only allowed for a single dose a month. emergency management coordinator submitted new prior auth around 11 [...] ordered at this time. Instructed patient to parts picker as soon as possible and that [...] read back to Tamela Wray. Abigail Schneider ACID CLEANER was notified of the result at 0920 AM. Ed Roberts RN documented in this encounter [facility] 08-31-2024 Telephone encounter Note New prior authorization needed - the prior auth completed yesterday only allowed for a single dose a month. emergency management coordinator submitted new prior auth around 11 am this morning. Let patient know that if we do not receive approval within the next hour, he will need to go to the ED. [facility] 08-31-2024 Telephone encounter Note Spoke with patient [...] ordered at this time. Instructed patient to parts picker as soon as possible and that he must do repeat CMP again today 6 hours after taking it. If potassium level does not improve, patient understands he needs to go to the emergency room. [facility] 08-31-2024 Telephone encounter Note Patient s identity has been confirmed by name and birthdate: Yes Call received from lab at 0918 AM to report a critical value for Potassium of 6.4. Verified and read back to Tamela Wray. Abigail Schneider ACID CLEANER was notified of the result at 0920 AM. Ed Roberts RN [facility] 08-30-2024 Telephone encounter Note Sent patient message and left voicemail explaining to hold off on taking the Kayexalate until he completes his lab work today. Will first reassess his potassium level before having him take the Kayexalate. [facility] Work Phone: 08-30-2024 Miscellaneous Notes Sent patient message and left voicemail explaining to hold off on taking the Kayexalate until he completes his lab work today. Will first reassess his potassium level before having him take the Kayexalate. documented in this encounter [facility] 08-27-2024 Telephone encounter Note Called and spoke with patient regarding hyperkalemia (6.1) resulted on pt's CMP this morning . Explained that kayexalate will be sent to his preferred pharmacy and needs to be taken as soon as able and then will need a repeat BMP 6 hour afterwards. Pt agreeable to plan. [facility] Work Phone: 08-27-2024 Miscellaneous Notes Called and spoke with patient regarding hyperkalemia (6.1) resulted on pt's CMP this morning . Explained that kayexalate will be sent to his preferred pharmacy and needs to be taken as soon as able and then will need a repeat BMP 6 hour afterwards. Pt agreeable to plan. documented in this encounter [facility] 08-25-2024 Telephone encounter Note Rep called needing clarification regarding pt's vancomycin IV that Dr. Schneider rx'ed. He would like a clinical staff member to call him back. [facility] 08-25-2024 Miscellaneous Notes Rep called needing clarification regarding pt's vancomycin IV that Dr. Schneider rx'ed. He would like a clinical staff member to call him back. documented in this encounter [facility] 08-25-2024 Telephone encounter Note 3:15 PM From Sally Schneider, I talked to the pharmacist about Jay's vanco level. We are lowering his dose to 300mg every 12 hours Can you please let him know and he will need to go and get another vanco level drawn on Friday before he gets Friday morning dose I put another vanco level order for Friday in [facility] spoke with pt, who had already spoken to [facility] about the plan. Pt relayed plan to this for verification. Pt to obtain labs on Friday with vanco level. 8:45 am: Sent pt text message re: time of vancomycin dosing before 8:30 am lab draw yesterday. Vanco dose at 8 pm Friday prior to Mon am lab draw. Notified ACID CLEANER. Pt asking about saline due to feeling dry. Pt aware and expecting delivery of meds tomorrow. ACID CLEANER ordered and orders were faxed to [facility] [phone]. [facility] 08-25-2024 Miscellaneous Notes 3:15 PM From Sally Schneider, I talked to the pharmacist about Jay's vanco level. We are lowering his dose to 300mg every 12 hours Can you please let him know and he will need to go and get another vanco level drawn on Friday before he gets Friday morning dose I put another vanco level order for Friday in [facility] spoke with pt, who had already spoken to [facility] about the plan. Pt relayed plan to this for verification. Pt to obtain labs on Friday with vanco level. 8:45 am: Sent pt text message re: time of vancomycin dosing before 8:30 am lab draw yesterday. Vanco dose at 8 pm Friday prior to Mon am lab draw. Notified ACID CLEANER. Pt asking about saline due to feeling dry. Pt aware and expecting delivery of meds tomorrow. ACID CLEANER ordered and orders were faxed to [facility] [phone]. documented in this encounter [facility] 08-20-2024 History of Presen t illness Narrative CF Pre-Clinic Checklist PRE-TRANSPLANT Last CF clinic visit date: 08/18/24 [place] at [facility] Microbiology: b. Cepacia complex; MRSA Lab Results [...] OGTT/CFRD: +CFRD -> Follows with Tyler Ramirez, ACID CLEANER-last OV 07/06/24 Dexa: Completed on 09/24/23 -> Lowest T-score is -3.1 in left femoral neck (repeat in August 2024 at [facility])-order is in. Scheduled for [facility] 09/02 T/Z = > -1.0 - every [...] 24%, 10 lb weight loss -PICC at [facility] tomorrow 7:45am (map given to [facility] Heart [facility] V[facility] entrance for PICC placement, order confirmed) -IV Vancomycin 500mg q12, Meropenem 1gram q12 x 14 days; IV diphenhydramine 50mg q12, 30' before IV vancomycin -CMP, CBC, Mg labs today, then qMon & Thurs -Vanc trough Thursday 08/23 -meds via [facility] -PICC care via -[facility] -F/U Adult CF Center at [facility]Main Follow up visit in 7-10 days -See abx abstract 08/20/24 Plan for visit: - home IV follow up - PFT ordered and scheduled Fernando Zhang RD documented in this encounter [facility] 08-20-2024 History of Presen t illness Narrative [...] PICC Team while admitted Home Care Agency: flying squad salesperson: OP clinic: [facility] for labs and line care [facility]fusion Pharmacy Agency: flying squad salesperson: [facility] Fax: Have we called HC agency to follow up orders/additional needs? Did we need to contact HC Liaison (Teresa Medina or Mckenna Masterson): Yes or No. Issues: No Labs ordered: CBC w/ Diff CMP Mag Pre-dose Vancomycin Labs once or twice weekly: Twice Weekly Days: Mondays and Patient phone number [phone] Were they contacted? Yes Clinic follow-up appointment date: TBD documented in this encounter [facility] 08-19-2024 Note Addended by: ZAIDA SANTOS on: 08/19/2024 11:25 AM Modules accepted: Orders [facility] 08-19-2024 Miscellaneous Notes Addended by: ZAIDA SANTOS on: 08/19/2024 11:25 AM Modules accepted: Orders Nataliya with [facility] called to request signed orders. They have the orders but they are not signed. Requests signed orders. Orders and pertinent clinical information faxed to [facility] for PICC placement yesterday. Spoke with patient this morning- PICC was placed as planned. IV abx orders and pertinent clinical information also faxed to [facility] this morning at 0830. Requested patient reach out to this office once they've confirmed SOC/antibiotic delivery with him. documented in this encounter [facility] 08-19-2024 Telephone encounter Note Nataliya with [facility] called to request signed orders. They have the orders but they are not signed. Requests signed orders. [facility] 08-19-2024 Telephone encounter Note Orders and pertinent clinical information faxed to [facility] for PICC placement yesterday. Spoke with patient this morning- PICC was placed as planned. IV abx orders and pertinent clinical information also faxed to [facility] this morning at 0830. Requested patient reach out to this office once they've confirmed SOC/antibiotic delivery with him. [facility] 08-19-2024 Note HNO ID: [id number] Author: DANIEL BARONE RN Service: ? Author Type: Registered Nurse Type: Procedures Filed: 08/19/2024 08:22 Note Text: PICC NURSE INSERTION NOTE DATE OF PROCEDURE: August 19, 2024 TIME OF PROCEDURE: 0750 ORDERING PHYSICIAN: [place] INFORMED CONSENT: Obtained per hospital policy. INDICATION FOR LINE PLACEMENT: IV access COPAT CONDITION OF LINE PLACEMENT: Sterile PRIMARY PROCEDURALIST: Orquidea Ochoa RN AIRWAYS CONTROL SPECIALIST: Daniel Barone RN PRE-PROCEDURE REVIEW ALLERGIES Allergen [...] Barone RN CATHETER PLACEMENT Brand: Bard Lot: [id number] Number of Lumens: 1 Type of PICC: Power Injectable PICC Lumen Size: 4 Portuguese PLACEMENT TECHNIQUE Lidocaine: Yes, Lidocaine 1% Volume [...] Given to patient QUESTIONS or PROBLEMS: Call [phone] SIGNATURE: Daniel Barone RN PATIENT NAME: Jay Barber DATE: August 19, 2024 TIME: 8:08 AM PAGER/CONTACT PHONE: [facility] 08-19-2024 Procedure note Associated Ord er(s): IR VASCULAR ACCESS TEAM PICC INSERTION RADIO Procedure(s): PICC LINE INSERTION (PICC TEAM) (AK) PICC NURSE INSERTION NOTE DATE OF PROCEDURE: August 19, 2024 TIME OF PROCEDURE: 0750 ORDERING PHYSICIAN: [place] INFORMED CONSENT: Obtained per hospital policy. INDICATION FOR LINE PLACEMENT: IV access COPAT CONDITION OF LINE PLACEMENT: Sterile PRIMARY PROCEDURALIST: Orquidea Ochoa RN AIRWAYS CONTROL SPECIALIST: Daniel Barone RN PRE-PROCEDURE REVIEW ALLERGIES Allergen [...] Barone RN CATHETER PLACEMENT Brand: Bard Lot: [id number] Number of Lumens: 1 Type of PICC: Power Injectable PICC Lumen Size: 4 Portuguese PLACEMENT TECHNIQUE Lidocaine: Yes, Lidocaine 1% Volume [...] Given to patient QUESTIONS or PROBLEMS: Call [phone] SIGNATURE: Daniel Barone RN PATIENT NAME: Jay Barber DATE: August 19, 2024 TIME: 8:08 AM PAGER/CONTACT PHONE: [facility] 08-19-2024 Procedure note Associated Ord er(s): IR VASCULAR ACCESS TEAM PICC INSERTION RADIO Procedure(s): PICC LINE INSERTION (PICC TEAM) (AK) PICC NURSE INSERTION NOTE DATE OF PROCEDURE: August 19, 2024 TIME OF PROCEDURE: 0750 ORDERING PHYSICIAN: [place] INFORMED CONSENT: Obtained per hospital policy. INDICATION FOR LINE PLACEMENT: IV access COPAT CONDITION OF LINE PLACEMENT: Sterile PRIMARY PROCEDURALIST: Orquidea Ochoa RN AIRWAYS CONTROL SPECIALIST: Daniel Barone RN PRE-PROCEDURE REVIEW ALLERGIES Allergen [...] applicable. Daniel Barone RN CATHETER PLACEMENT Brand: Planana Lot: [id number] Number of Lumens: 1 Type of PICC: Power Injectable PICC Lumen Size: 4 Portuguese PLACEMENT TECHNIQUE Lidocaine: Yes, Lidocaine 1% Volume [...] Given to patient QUESTIONS or PROBLEMS: Call [phone] SIGNATURE: Daniel Barone RN PATIENT NAME: Jay Barber DATE: August 19, 2024 TIME: 8:08 AM PAGER/CONTACT PHONE: documented in this encounter [facility] 08-19-2024 Note HNO ID: [id number] Author: DANIEL BARONE RN Service: ? Author [...] Primary Care SUPPLEMENTAL MATERIAL: PICC Line brochure [facility] 08-19-2024 History of Presen t illness [...] PICC Line brochure documented in this encounter [facility] 08-18-2024 History of Presen t [...] 24%, 10 lb weight loss -PICC at [facility] tomorrow 7:45am (map given to [facility] entrance for PICC placement, order confirmed) -IV Vancomycin 500mg q12, Meropenem 1gram q12 x 14 days; IV diphenhydramine 50mg q12, 30' before IV vancomycin -CMP, CBC, Mg labs today, then qMon & Thurs -Vanc trough Thursday 08/23 -meds via [facility] -PICC care via -[facility] -F/U Adult CF Center at [facility]-Main Follow up visit in 7-10 days HISTORY [...] visit: 0 Hospitalizations since last visit: 0 CEYX/Phone Messages since last visit: 07/19/24-f/u with GI-PLAN [...] forward clinic note from today to patient's wireless development manager, regarding optimal approach for liver biopsy (US guided vs. Transjugular) as patient has concerns that if he were to be intubated, he may have a diffucult extubation 07/19/24-pt contacted [facility] to obtain info about their [...] (H) 4.3 - 5.6 % Final Comment: [place] [employer] guidelines indicate that patients with HgbA1c in the range 5.7-6.4% are at increased risk for development of diabetes, and intervention by lifestyle modification may be beneficial. HgbA1c greater or equal to 6.5% is considered diagnostic of diabetes. 07/03/2023 6.9 (H) 4.3 - 5.6 % Final Comment: [place] [employer] guidelines indicate that patients with HgbA1c in the range 5.7-6.4% are at increased risk for development of diabetes, and intervention by lifestyle modification may be beneficial. HgbA1c greater or equal to 6.5% is considered diagnostic of diabetes. Hemoglobin A1C (POCT) Date Value Ref Range Status 07/06/2024 6.2 (A) 4.3 - 5.6 % Final Comment: Location:[facility] [place], [address] [place] [address], [facility] Point of care (POC) Hemoglobin A1c (HGBA1C) [...] specific diabetes management situations: The POC device lacquer sizer provides a normal range of 4.2% to 6.5% for the HGBA1C POC test. However, the [place] [employer] guidelines indicate that patients with [...] (A) 4.3 - 5.6 % Final Comment: [facility] [address] [place] [address] Point of care (POC) Hemoglobin A1c (HGBA1C) [...] specific diabetes management situations: The POC device lacquer sizer provides a normal range of 4.2% to 6.5% for the HGBA1C POC test. However, the [place] [employer] guidelines indicate that patients with [...] 6.4 4.2 - 5.6 % Final Comment: Location:[facility] [place], [address] [place], [place] [id number] Point of care (POC) Hemoglobin A1c (HGBA1C) [...] specific diabetes management situations: The POC device lacquer sizer provides a normal range of 4.2% to 6.5% for the HGBA1C POC test. However, the [place] [employer] guidelines indicate that patients with [...] femoral neck (repeat in August 2024 at [facility])-order is in. 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 CREON 36,000-114,000- 180,000 unit delayed release capsule Take 3 capsules by mouth three times a day with meals. 3 with snacks dornase chrisit (PULMOZYME) 1 mg/mL nebulizer solution Inhale 2.5 [...] times a week. Blood-Glucose Meter,Continuous (DEXCOM G7 SHIFT SUPERVISOR RN) [facility] For monitoring sugars glucagon (BAQSIMI) 3 mg/actuation nasal spray Use 1 [place] in the nose as needed. May repeat [...] imaging results. LAST LAB RESULTS: ---Reviewed in [facility] CBC with diff: WBC 5.68 03/17/2024 RBC 2.57 03/17/2024 Hemoglobin 7.4 03/17/2024 Hematocrit 22.7 03/17/2024 MCV 88.3 03/17/2024 MCH 28.8 03/17/2024 MCHC 32.6 03/17/2024 RDW-CV 13.9 03/17/2024 Platelet Count 147 03/17/2024 MPV 9.9 03/17/2024 Neutrophils % 49.9 03/17/2024 Lymph% 27.6 03/17/2024 Mccone% 7.4 03/17/2024 Eosin% 13.7 03/17/2024 Baso% 1.2 03/17/2024 Abs Neut (Segs + Bands) 2.83 03/17/2024 Abs Mccone 0.42 03/17/2024 Abs Eosin 0.78 03/17/2024 Abs [...] (A) 4.3 - 5.6 % Final Comment: Location:[facility], [address] [place] [address], [facility] Point of care (POC) Hemoglobin A1c (HGBA1C) [...] specific diabetes management situations: The POC device lacquer sizer provides a normal range of 4.2% to 6.5% for the HGBA1C POC test. However, the [place] [employer] guidelines indicate that patients with [...] red blood cell lifespan. SPIROMETRY: Reviewed in [facility] SPIROMETRY BASELINE ONLY ([id number]) - ordered on 08/18/24 ID: [id number] Name: JAY BARBER Race: White Ht: 61.61 in Wt: 85.32 lbs Age: 29 Gender: Male : 1995 Dx: Cystic fibrosis_ Smoking Hx: Non-smoker Doctor: JEAN PIERRE KIGLORE Test Date: 08/18/2024 Site: [facility]: Herber Montes PRE-BRONCH POST-BRONCH Pre LLN Pred ULN %Pred Post %Pred %Chg SPIROMETRY FVC (L) 2.40 2.78 3.58 4.39 67 FEV1 (L) 0.76 2.38 3.07 3.72 24 FEV1/FVC 0.32 0.75 0.86 0.94 37 PEF L/s (L/sec) 3.84 6.69 8.48 10.27 45 FEF50 (L/sec) 0.25 1.90 4.03 6.15 6 FIF50 (L/sec) 2.64 FEF50/FIF50 0.10 90-100 FIVC (L) 2.30 KAF66-87 (L/sec) 0.21 2.25 3.64 5.36 5 Time (sec) 14.56 FET PEF (sec) 0.04 MACIEL (L) 0.03 Vol Extrap % (%) 1 SPIROMETRY BASELINE ONLY ([id number]) - ordered on 05/05/24 ID: [id number] Name: ELISABETH JAY Race: White Ht: 61.61 [...] 3.18 FEF50/FIF50 0.10 90-100 FIVC (L) 2.33 ENT15-18 (L/sec) 0.25 2.26 3.65 5.38 6 Time (sec) 14.78 FET PEF (sec) 0.04 MACIEL (L) 0.04 Vol Extrap % (%) 1 ID: [id number] Name: JAY BARBER Race: White Ht: 62.01 in Wt: 89.07 lbs Age: 28 Gender: Male : 1995 Dx: Cystic fibrosis with pulmonary manifestations Smoking Hx: Non-smoker Doctor: ALEX PINON Test Date: 02/25/2024 Site: [facility] Tech: Padma Campbell PRE-BRONCH POST-BRONCH Pre LLN Pred ULN %Pred Post %Pred %Chg SPIROMETRY FVC (L) 2.43 2.84 3.65 4.47 66 FEV1 (L) 0.85 2.43 3.13 3.79 27 FEV1/FVC 0.35 0.75 0.86 0.94 40 PEF L/s (L/sec) 3.77 6.74 8.56 10.38 44 FEF50 (L/sec) 0.28 1.99 4.11 6.24 6 FIF50 (L/sec) 2.74 FEF50/FIF50 0.10 90-100 FIVC (L) 2.25 YYI80-08 (L/sec) 0.23 2.29 3.70 5.44 6 Time (sec) 14.69 FET PEF (sec) 0.04 MACIEL (L) 0.03 Vol Extrap % (%) 1 SPIROMETRY BASELINE ONLY - ordered on 02/25/2024 ID: [id number] Name: JAY BARBER Race: White Ht: 62.01 [...] 2.81 FEF50/FIF50 0.09 90-100 FIVC (L) 2.27 DQP37-86 (L/sec) 0.22 2.29 3.70 5.44 5 Time (sec) 15.19 FET PEF (sec) 0.04 MACIEL (L) 0.03 Vol Extrap % (%) 1 SPIROMETRY BASELINE ONLY ([id number]) - ordered on 11/12/23 ID: [id number] Name: JAY BARBER Race: White Ht: 62.01 [...] 2.61 FEF50/FIF50 0.11 90-100 FIVC (L) 2.20 ONL76-97 (L/sec) 0.24 2.30 3.71 5.45 6 Time (sec) 14.86 FET PEF (sec) 0.04 MACIEL (L) 0.04 Vol Extrap % (%) 2 SPIROMETRY BASELINE ONLY ([id number]) - ordered on 09/24/23 ID: [id number] Name: JAY BARBER Race: White Ht: 62.01 in Wt: 87.52 lbs Age: 28 Gender: Male : 1995 Dx: Cystic fibrosis_ Smoking Hx: Non-smoker Doctor: JEAN PIERRE KILGORE Test Date: 09/24/2023 Site: [facility] Tech: Padma Campbell PRE-BRONCH POST-BRONCH Pre LLN Pred ULN %Pred Post %Pred %Chg SPIROMETRY FVC (L) 2.71 2.84 3.65 4.47 74 FEV1 (L) 1.03 2.44 3.13 3.80 33 FEV1/FVC 0.38 0.75 0.86 0.94 44 PEF L/s (L/sec) 4.03 6.74 8.56 10.37 47 FEF50 (L/sec) 0.36 2.00 4.13 6.25 8 FIF50 (L/sec) 2.47 FEF50/FIF50 0.15 90-100 FIVC (L) 2.43 BAX29-73 (L/sec) 0.29 2.30 3.71 5.46 7 Time (sec) 14.96 FET PEF (sec) 0.04 MACIEL (L) 0.03 Vol Extrap % (%) 1 SPIROMETRY BASELINE ONLY ([id number]) - ordered on 07/02/23 ID: [id number] Name: JAY BARBER Race: White Ht: 62.01 [...] 3.24 FEF50/FIF50 0.12 90-100 FIVC (L) 2.30 OST19-16 (L/sec) 0.31 2.31 3.72 5.47 8 Time [...] with treatment plan. Return to clinic at [facility] in 1-2 weeks, with spirometry (spirometry baseline). I spent a total of 120 minutes on the date of the service which included preparing to see the patient, [id number] patient care, completing clinical documentation, obtaining and/or reviewing separately obtained history, performing a medically appropriate examination, ordering medications, tests, or procedures, communicating with other HCPs (not separately reported), and care coordination (not separately reported). Electronically Signed: August 18, 2024 documented in this encounter [facility] 08-18-2024 History of Presen t illness Narrative PULM FUNCTION: Provider: Jean Pierre Kilgore MD Spirometry: 1 documented in this encounter [facility] 08-13-2024 Telephone encounter Note Patient would like to hold off on inhaled meropenem at this time. Will re-evaluate how he's feeling when he sees Dr. Kilgore next week. [facility] Work Phone: 08-13-2024 Miscellaneous Notes Patient would [...] response from patient. documented in this encounter [facility] 08-13-2024 Telephone encounter Note Discussed with patient that the other oral option is Levaquin - patient believes this has also caused him GI upset in the past. Explained the other option would be inhaled Meropenem- await response from patient. [facility] 08-12-2024 History of Presen t [...] OGTT/CFRD: +CFRD -> Follows with Tyler Ramirez, ACID CLEANER-last OV 07/06/24 Dexa: Completed on 09/24/23 -> Lowest T-score is -3.1 in left femoral neck (repeat in August 2024 at [facility])-order is in. Scheduled for [facility] [place] T/Z = > -1.0 - every 5 [...] forward clinic note from today to patient's wireless development manager, regarding optimal approach for liver biopsy (US guided vs. Transjugular) as patient has concerns that if he were to be intubated, he may have a diffucult extubation 07/19/24-pt contacted [facility] to obtain info about their center/clinics Plan for visit: - Sj ordered and scheduled -Needs CF Resp Cult and AFB - Needs repeat Dexa Aug 2024 in [facility]? 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 [facility] [phone] Patient's request for medication is as follows: Requested Prescriptions Pending Prescriptions Disp Refills tranexamic acid (LYSTEDA) 650 mg tablet 30 tablet 3 Sig: Take 2 tablets by mouth three times a day for 5 days. Prescription(s) as above. Please process accordingly. Obed Hoff documented in this encounter [facility] 08-11-2024 Telephone encounter Note Spoke with patient. [...] his appt with Dr. Kilgore next week. [facility] 08-11-2024 Telephone encounter Note Patient started coughing up blood around 4pm yesterday. He started taking the tranexamic tablets but he only has a enough for today and would like a new prescription ordered. [facility] [phone] Patient's request for medication is as follows: Requested Prescriptions Pending Prescriptions Disp Refills tranexamic acid (LYSTEDA) 650 mg tablet 30 tablet 3 Sig: Take 2 tablets by mouth three times a day for 5 days. Prescription(s) as above. Please process accordingly. Obed Hoff [facility] 07-26-2024 History of Presen t [...] 2011) requiring surgical splenorenal shunt creation (2011, [facility]), h/o G1EV and EV (last EGD 07/16/23- [...] Hypertension No date: Liver disease No date: alf (current) use of insulin (HCC) No date: [...] a day 15 mL 11 Blood-Glucose Sensor (Familonet G7 SENSOR) jean-paul use as directed and REPLACE every 10 days 3 Each 11 Insulin Mabank, Disposable, (BD YARON 2ND GEN PEN NEEDLE) [...] a week. 24 capsule 3 Blood-Glucose Meter,Continuous (Familonet G7 SHIFT SUPERVISOR RN) misc For monitoring sugars 1 Each 1 glucagon (BAQSIMI) 3 mg/actuation nasal spray Use 1 Montour in the nose as needed. 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 60 tablet 1 Insulin Mabank, Disposable, (BD YARON 2ND GEN PEN NEEDLE) [...] 54 g 11 Blood-Glucose Meter,Continuous (DEXCOM G7 SHIFT SUPERVISOR RN) [facility] For monitoring sugars 1 Each 1 glucagon (BAQSIMI) 3 mg/actuation nasal spray Use 1 Montour in the nose as needed. May repeat [...] (Patient not taking: Reported on 04/07/2024) Vit A,C,B-Svgd-Tnxjve (PRESERVISION AREDS) 4,296 mcg-226 mg-90 mg cap [...] 2011) requiring surgical splenorenal shunt creation (2011, [facility]), h/o G1EV and EV (last EGD 07/16/23- [...] forward clinic note from today to patient's wireless development manager, Dr. aHmilton regarding optimal approach for liver biopsy (US [...] 2024 10:37 AM documented in this encounter [facility] 07-06-2024 Instructions Stephie Ramirez APRN.ARIAS - 07/06/2024 1:58 PM EDT Patient educated to have ophthalmology visits at least once a year. documented in this encounter [facility] 07-06-2024 Note HNO ID: [id number] Author: STEPHIE RAMIREZ APRN.ARIAS Service: ? Author [...] results in care everywhere, 01/2020: labs in [facility], 07/2020; Alkaline Phosphatase 725 (45-117), ALT 77 (16-61), AST 163 (15-37), 12/2020: results in care everywhere., 03/2021: results In care everywhere, 12/2021: Alkaline Phosphatase 918 (38-113), bone percent 13.9%, liver percent 86.1 , 12/2022: liver function monitored by CF providers, 03/2023: in [facility], 08/2023: LFTS in [facility], 10/2023: LFTS in [facility], 03/2024: liver test in [facility] Dilated Eye Exam: Patient educated to have ophthalmology visits at least once a year. 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 08/2013: New patient visit for Cystic Fibrosis related Diabetes Previous diabetes related labs from [facility] and [facility]-everywhere systems reviewed prior to today's office visit. [...] until its approv (more content not included)... [facility] 07-06-2024 History of Presen t illness [...] results in care everywhere, 01/2020: labs in [facility], 07/2020; Alkaline Phosphatase 725 (45-117), ALT 77 (16-61), AST 163 (15-37), 12/2020: results in care everywhere., 03/2021: results In care everywhere, 12/2021: Alkaline Phosphatase 918 (38-113), bone percent 13.9%, liver percent 86.1 , 12/2022: liver function monitored by CF providers, 03/2023: in [facility], 08/2023: LFTS in [facility], 10/2023: LFTS in [facility], 03/2024: liver test in [facility] Dilated Eye Exam: Patient educated to have ophthalmology visits at least once a year. 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 08/2013: New patient visit for Cystic Fibrosis related Diabetes [facility] prior to today's office visit. [...] Hypertension No date: Liver disease No date: alf (current) use of insulin (HCC) No date: [...] directed and REPLACE every 10 days Insulin Mabank, Disposable, (BD YARON 2ND GEN PEN NEEDLE) [...] shortness of breath Blood-Glucose Meter,Continuous (DEXCOM G7 SHIFT SUPERVISOR RN) misc For monitoring sugars glucagon (BAQSIMI) 3 mg/actuation nasal spray Use 1 Montour in the nose as needed. May repeat [...] 7. Discussed therapeutic lifestyle changes. Stephie Ramirez APRN.ACID CLEANER documented in this encounter [facility] 07-05-2024 Note HNO ID: [id number] Author: STEPHIE RAMIREZ APRN.ARIAS Service: ? Author [...] further kidney damage., 10/2022: prot/creat ratio in [facility], making appointment with nephrology, 07/2023: prot/creat ratio in [facility] Lipid Profile:10/2013: TC 111, HDL 42, LDL [...] total 1.3 (0.2-1.0, mg/dL, 05/2018: results in [facility] everywhere, 12/2019: results in [facility] everywhere, 01/2020: labs in [facility], 07/2020; Alkaline Phosphatase 725 (45-117), ALT 77 (16-61), AST 163 (15-37), 12/2020: results in care everywhere., 03/2021: results In [facility] everywhere, 12/2021: Alkaline Phosphatase 918 (38-113), bone percent 13.9%, liver percent 86.1 , 12/2022: liver function monitored by CF providers, 03/2023: in [facility], 08/2023: LFTS in [facility], 10/2023: LFTS in [facility], 03/2024: liver test in [facility] Dilated Eye Exam: Patient educated to have ophthalmology visits at least once a year. 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 08/2013: New patient visit for Cystic Fibrosis related Diabetes [facility] reviewed prior to today's office visit. [...] used for t (more content not included)... [facility] 07-05-2024 History of Presen t illness [...] further kidney damage., 10/2022: prot/creat ratio in [facility], making appointment with nephrology, 07/2023: prot/creat ratio in [facility] Lipid Profile:10/2013: TC 111, HDL 42, LDL [...] results in care everywhere, 01/2020: labs in [facility], 07/2020; Alkaline Phosphatase 725 (45-117), ALT 77 (16-61), AST 163 (15-37), 12/2020: results in care everywhere., 03/2021: results In care everywhere, 12/2021: Alkaline Phosphatase 918 (38-113), bone percent 13.9%, liver percent 86.1 , 12/2022: liver function monitored by CF providers, 03/2023: in [facility], 08/2023: LFTS in [facility], 10/2023: LFTS in [facility], 03/2024: liver test in [facility] Dilated Eye Exam: Patient educated to have ophthalmology visits at least once a year. 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 08/2013: New patient visit for Cystic Fibrosis related Diabetes Previous diabetes related labs from [facility] and [facility]-everywhere systems reviewed prior to today's office visit. [...] Hypertension No date: Liver disease No date: alf (current) use of insulin (HCC) No date: [...] at 6 am and 4 pm. Insulin Mabank, Disposable, (BD YARON 2ND GEN PEN NEEDLE) [...] as needed for wheezing/shortness of breath. Vit A,C,C-Rtmc-Atlnsn (PRESERVISION AREDS) 4,296 mcg-226 mg-90 mg cap [...] times a week. Blood-Glucose Meter,Continuous (DEXCOM G7 SHIFT SUPERVISOR RN) misc For monitoring sugars glucagon (BAQSIMI) 3 mg/actuation nasal spray Use 1 Montour in the nose as needed. May repeat [...] visit. Physical Exam documented in this encounter [facility] 05-10-2024 History of Presen t illness Narrative [...] BID CFRD: Present, follows with endo at [facility] CGM: Dexcom G7 Insulin regimen: Basaglar 8 [...] Barber DATE: 05/05/2024 TIME: 12:13 PM PAGER: [phone] documented in this encounter [facility] 05-07-2024 History of Presen t [...] PATIENT PRESENTS WITH AN IMPLANTABLE OR ATTACHED SECURITIES RESEARCH ANALYST: Yes Dexcom ALLERGIES: Reviewed and unchanged CONTRAST ALLERGY: NO. EXAM: MRI - CONTRAST TYPE: GROUP II PERIPHERAL IV DATA: Ambulatory: A peripheral IV was started in the Left antecubital site with a Angio cath: 22 gauge. RADIOLOGY DEPARTMENT: MR; Exam(s) Completed: Body: Pancreas/Biliary SIGNATURE: RT Art(R) PATIENT NAME: Jay Barber DATE: May 07, 2024 TIME: 1:46 PM documented in this encounter [facility] 05-05-2024 Instructions Zaida Santos RN [...] usual activities immediately. documented in this encounter [facility] 05-05-2024 History of Presen t [...] x 5 minutes Microwave x 5 minutes Freight Trucker 158 degrees x 30 minutes Electric steam sterilizer(baby bottle sterilizer) Cold options include Soak in 70% isopropyl alcohol x 5 minutes Soak in 3% hydrogen peroxide x 30 minutes Reviewed replacement recommendations. Nebulizer every 6 months*. Inhaler spacer every 12 months*. Nebulizer filters per lacquer sizer guidelines*. *More often as needed. 6. EXERCISE/STRETCHING: Patient reports No specific exercise program. He plays with his dog for about 20 minutes on most days. Recommended exercise at least 30 minutes, 3-5 times a week. Goal is 150 minutes per week. 7. 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 Appt [phone]. 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 Burke France in 2020 for [...] ordered ---Following with [facility]. Francis Ramirez at [facility] OSTEOPOROSIS ---DEXA with Vitamin D 25 Hydroxy (ng/mL) Date Value 02/27/2024 32.4 Hemoglobin A1C Date Value Ref Range Status 02/03/2024 6.3 (H) 4.3 - 5.6 % Final Comment: [place] [employer] guidelines indicate that patients with HgbA1c in the range 5.7-6.4% are at increased risk for development of diabetes, and intervention by lifestyle modification may be beneficial. HgbA1c greater or equal to 6.5% is considered diagnostic of diabetes. 07/03/2023 6.9 (H) 4.3 - 5.6 % Final Comment: [place] [employer] guidelines indicate that patients with HgbA1c in the range 5.7-6.4% are at increased risk for development of diabetes, and intervention by lifestyle modification may be beneficial. HgbA1c greater or equal to 6.5% is considered diagnostic of diabetes. 03/08/2023 7.7 (H) 4.3 - 5.6 % Final Comment: [place] [employer] guidelines indicate that patients with HgbA1c in the range 5.7-6.4% are at increased risk for development of diabetes, and intervention by lifestyle modification may be beneficial. HgbA1c greater or equal to 6.5% is considered diagnostic of diabetes. Hemoglobin A1C (POCT) Date Value Ref Range Status 03/09/2024 6.1 (A) 4.3 - 5.6 % Final Comment: [facility] [address] [place] [address] Point of care (POC) Hemoglobin A1c (HGBA1C) [...] specific diabetes management situations: The POC device lacquer sizer provides a normal range of 4.2% to 6.5% for the HGBA1C POC test. However, the [place] [employer] guidelines indicate that patients with [...] 6.4 4.2 - 5.6 % Final Comment: Location:[facility], [address] [place] [address], [facility] Point of care (POC) Hemoglobin A1c (HGBA1C) [...] specific diabetes management situations: The POC device lacquer sizer provides a normal range of 4.2% to 6.5% for the HGBA1C POC test. However, the [place] [employer] guidelines indicate that patients with [...] COVID-19 original vaccine, age 12+ yr, monovalent ([employer]Starter-avVentaNTParadigm - PURPLE TOP) 12/24/2020 01/21/2021 12/05/2021 COVID-19 vaccine, age 12+ yr, bivalent (CareerStarter-BIONTECH) 12/04/2022 Haemophilus influenzae b (HbOC) vaccine, 4-dose [...] vaccine, quadrivalent, unspecified formulation 05/27/2012 novel influenza (H7P9-24) vaccine, PF 10/19/2009 pneumococcal (PCV7) vaccine, 7 [...] (HCC) History of transfusion Hypertension Liver disease alf (current) use of insulin (HCC) Transfusion history [...] of liquid and take as directed. Insulin Mabank, Disposable, (BD YARON 2ND GEN PEN NEEDLE) [...] times a week. Blood-Glucose Meter,Continuous (DEXCOM G7 SHIFT SUPERVISOR RN) [facility] For monitoring sugars glucagon (BAQSIMI) 3 mg/actuation nasal spray Use 1 Montour in the nose as needed. May repeat [...] times a day for 5 days. Vit A,C,T-Aqsv-Nhamzt (PRESERVISION AREDS) 4,296 mcg-226 mg-90 mg cap [...] imaging results. LAST LAB RESULTS: ---Reviewed in [facility] CBC with diff: WBC 5.68 03/17/2024 RBC 2.57 03/17/2024 Hemoglobin 7.4 03/17/2024 Hematocrit 22.7 03/17/2024 MCV 88.3 03/17/2024 MCH 28.8 03/17/2024 MCHC 32.6 03/17/2024 RDW-CV 13.9 03/17/2024 Platelet Count 147 03/17/2024 MPV 9.9 03/17/2024 Neutrophils % 49.9 03/17/2024 Lymph% 27.6 03/17/2024 Mccone% 7.4 03/17/2024 Eosin% 13.7 03/17/2024 Baso% 1.2 03/17/2024 Abs Neut (Segs + Bands) 2.83 03/17/2024 Abs Mccone 0.42 03/17/2024 Abs Eosin 0.78 03/17/2024 Abs [...] (A) 4.3 - 5.6 % Final Comment: Location:[facility], [address], [place], [address] Point of care (POC) Hemoglobin A1c (HGBA1C) [...] specific diabetes management situations: The POC device lacquer sizer provides a normal range of 4.2% to 6.5% for the HGBA1C POC test. However, the [place] Diabetes [employer] guidelines indicate that patients with [...] red blood cell lifespan. SPIROMETRY: Reviewed in [facility] SPIROMETRY BASELINE ONLY ([id number]) - ordered on 05/05/24 ID: [id number] Name: JAY BARBER Race: White Ht: 61.61 [...] 3.18 FEF50/FIF50 0.10 90-100 FIVC (L) 2.33 UQL92-65 (L/sec) 0.25 2.26 3.65 5.38 6 Time (sec) 14.78 FET PEF (sec) 0.04 MACIEL (L) 0.04 Vol Extrap % (%) 1 ID: [id number] Name: JAY BARBER Race: White Ht: 62.01 in Wt: 89.07 lbs Age: 28 Gender: Male : 1995 Dx: Cystic fibrosis with pulmonary manifestations Smoking Hx: Non-smoker Doctor: ALEX PINON Test Date: 02/25/2024 Site: [facility] Tech: Padma Campbell PRE-BRONCH POST-BRONCH Pre LLN Pred ULN %Pred Post %Pred %Chg SPIROMETRY FVC (L) 2.43 2.84 3.65 4.47 66 FEV1 (L) 0.85 2.43 3.13 3.79 27 FEV1/FVC 0.35 0.75 0.86 0.94 40 PEF L/s (L/sec) 3.77 6.74 8.56 10.38 44 FEF50 (L/sec) 0.28 1.99 4.11 6.24 6 FIF50 (L/sec) 2.74 FEF50/FIF50 0.10 90-100 FIVC (L) 2.25 VKL82-82 (L/sec) 0.23 2.29 3.70 5.44 6 Time (sec) 14.69 FET PEF (sec) 0.04 MACIEL (L) 0.03 Vol Extrap % (%) 1 SPIROMETRY BASELINE ONLY - ordered on 02/25/2024 ID: [id number] Name: JAY BARBER Race: White Ht: 62.01 [...] 2.81 FEF50/FIF50 0.09 90-100 FIVC (L) 2.27 QAB45-81 (L/sec) 0.22 2.29 3.70 5.44 5 Time (sec) 15.19 FET PEF (sec) 0.04 MACIEL (L) 0.03 Vol Extrap % (%) 1 SPIROMETRY BASELINE ONLY ([id number]) - ordered on 11/12/23 ID: [id number] Name: ELISABETHJAY Race: White Ht: 62.01 in [...] 2.61 FEF50/FIF50 0.11 90-100 FIVC (L) 2.20 BNT53-00 (L/sec) 0.24 2.30 3.71 5.45 6 Time (sec) 14.86 FET PEF (sec) 0.04 MACIEL (L) 0.04 Vol Extrap % (%) 2 SPIROMETRY BASELINE ONLY ([id number]) - ordered on 09/24/23 ID: [id number] Name: JAY BARBER Race: White Ht: 62.01 in Wt: 87.52 lbs Age: 28 Gender: Male : 1995 Dx: Cystic fibrosis_ Smoking Hx: Non-smoker Doctor: JEAN PIERRE KILGORE Test Date: 09/24/2023 Site: [facility] Tech: Padma Campbell PRE-BRONCH POST-BRONCH Pre LLN Pred ULN %Pred Post %Pred %Chg SPIROMETRY FVC (L) 2.71 2.84 3.65 4.47 74 FEV1 (L) 1.03 2.44 3.13 3.80 33 FEV1/FVC 0.38 0.75 0.86 0.94 44 PEF L/s (L/sec) 4.03 6.74 8.56 10.37 47 FEF50 (L/sec) 0.36 2.00 4.13 6.25 8 FIF50 (L/sec) 2.47 FEF50/FIF50 0.15 90-100 FIVC (L) 2.43 VGF78-41 (L/sec) 0.29 2.30 3.71 5.46 7 Time (sec) 14.96 FET PEF (sec) 0.04 MACIEL (L) 0.03 Vol Extrap % (%) 1 SPIROMETRY BASELINE ONLY ([id number]) - ordered on 07/02/23 ID: [id number] Name: JAY BARBER Race: White Ht: 62.01 [...] 3.24 FEF50/FIF50 0.12 90-100 FIVC (L) 2.30 OQE99-34 (L/sec) 0.31 2.31 3.72 5.47 8 Time [...] with treatment plan. Return to clinic at [facility] [place] in 12 weeks, with spirometry (spirometry baseline). I spent a total of 60 minutes on the date of the service which included preparing to see the patient, [id number] patient care, completing clinical documentation, obtaining and/or reviewing separately obtained history, and performing a medically appropriate examination. Electronically Signed: Jean Pierre Kilgore MD, FRANCI, FACP [facility] Adult Cystic Fibrosis [facility] Bronchiectasis [facility] Respiratory [place] [facility] Adult CF Patients [phone]. Adult patients use option #2 Bronchiectasis (Non-CF) Patients [phone] Surgical Nurse Practitioner: Nell Lozano [phone] Email: [email or web address] Office: [phone] May 05, 2024 documented in this encounter [facility] 05-05-2024 History of Presen t illness Narrative .PULM FUNCTION: Provider: Jean Pierre Kilgore MD Spirometry: 1 System: [facility] - [id number] documented in this encounter [facility] 05-05-2024 History of Presen t [...] unkwn Financial and Community Resources/Issues 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; 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 Annual Household Income: 25,000 Insurance Medicaid/HMO: [facility]/Other: Adult [facility] Copay Assistance Program: eligible for [employer], but not needed Financial Concerns: Parking/transportation/medicatio n: parking pass provided; no concerns obtaining or affording medications Daily Care Check in Completed: Yes/No: No Education School:[employer]-psychology major Any developmental issues/delays: none Educational Level of Father of Patient: unkwn Educational Level of Mother of Patient: unkwn Educational Level of Spouse: N/A Social History: -T/F care from [facility] -Advanced lung disease -Has not been interested in pursuing lung transplant -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 He has [facility] Medicaid and adult [facility] for insurance. No issues obtaining or affording medications. His initial disability application was denied and he is now in the appeal process. 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 He has a history of anxiety and [...] continue to follow. CHAPARRO Stubbs, [facility] Cystic Fibrosis Youth Agent V. [phone] documented in this encounter [facility] 04-30-2024 History of Presen t [...] OGTT/CFRD: +CFRD -> Follows with Tyler Ramirez, ACID CLEANER Dexa: Completed on 09/24/23 -> Lowest T-score [...] since last visit: Plan for visit: - [place] ordered and scheduled - Due for annual [...] Lindo on 07/16/24 documented in this encounter [facility] 04-07-2024 History of Presen t [...] 2011) requiring surgical splenorenal shunt creation (2011, [facility]), h/o G1EV and EV (last EGD 07/16/23- [...] (HCC) History of transfusion Hypertension Liver disease alf (current) use of insulin (HCC) Transfusion history [...] a day 15 mL 11 Blood-Glucose Sensor (Familonet G7 SENSOR) jean-paul use as directed and [...] and 4 pm. 60 tablet 1 Insulin Mabank, Disposable, (BD YARON 2ND GEN PEN NEEDLE) [...] 54 g 11 Blood-Glucose Meter,Continuous (DEXCOM G7 SHIFT SUPERVISOR RN) misc For monitoring sugars 1 Each 1 glucagon (BAQSIMI) 3 mg/actuation nasal spray Use 1 Montour in the nose as needed. May repeat [...] (Patient not taking: Reported on 04/07/2024) Vit A,C,I-Ddcz-Ixxdfu (PRESERVISION AREDS) 4,296 mcg-226 mg-90 mg cap [...] 2011) requiring surgical splenorenal shunt creation (2011, [facility]), h/o G1EV and EV (last EGD 07/16/23- [...] 2024 3:36 PM documented in this encounter [facility] 04-07-2024 Instructions Tia Lindo MD - 04/07/2024 1:51 PM EDT Schedule RV with Dr. Lindo in 3 months Schedule MRCP as soon as possible Get blood work done in 2 weeks. Take ursodiol 600 mg once daily documented in this encounter [facility] 03-26-2024 Telephone encounter Note Images from the original note were not included. Medication: SPS 15GM/60ML suspension Date Submitted: March 26, 2024 Prescribing Provider: Sally Schneider CNP Method of Submission: CMM Outcome: Denied Reason for Denial: Outcome Date: March 26, 2024 PRABHA Arriaga [facility] 03-26-2024 Miscellaneous Notes Images from the original note were not included. Medication: SPS 15GM/60ML suspension Date Submitted: March 26, 2024 Prescribing Provider: Sally Schneider CNP Method of Submission: CMM Outcome: Denied Reason for Denial: Outcome Date: March 26, 2024 PRABHA Arriaga documented in this encounter [facility] 03-09-2024 Instructions Stephie Ramirez APRN.ACID CLEANER - 03/09/2024 1:24 PM EDT Patient educated to have ophthalmology visits at least once a year. documented in this encounter [facility] 03-09-2024 Note HNO ID: [id number] Author: STEPHIE RAMIREZ APRN.CNP Service: ? Author [...] further kidney damage., 10/2022: prot/creat ratio in [facility], making appointment with nephrology, 07/2023: prot/creat ratio in [facility] Lipid Profile:10/2013: TC 111, HDL 42, LDL [...] results in care everywhere, 01/2020: labs [place] [facility] Alkaline Phosphatase 725 (45-117), ALT 77 (16-61), AST 163 (15-37), 12/2020: results in care everywhere., 03/2021: results In care everywhere, 12/2021: Alkaline Phosphatase 918 (38-113), bone percent 13.9%, liver percent 86.1 , 12/2022: liver function monitored by CF providers, 03/2023: in [facility], 08/2023: LFTS in [facility], 10/2023: LFTS in [facility], 03/2024: liver test in [facility] Dilated Eye Exam: Patient educated to have ophthalmology visits at least once a year. 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 08/2013: New patient visit for Cystic Fibrosis related Diabetes Previous diabetes related labs from [facility] and [facility] systems reviewed prior to today's office visit. [...] Your new i (more content not included)... [facility] 03-09-2024 History of Presen t illness [...] results in care everywhere, 01/2020: labs in [facility], 07/2020; Alkaline Phosphatase 725 (45-117), ALT 77 (16-61), AST 163 (15-37), 12/2020: results in care everywhere., 03/2021: results In care everywhere, 12/2021: Alkaline Phosphatase 918 (38-113), bone percent 13.9%, liver percent 86.1 , 12/2022: liver function monitored by CF providers, 03/2023: in [facility], 08/2023: LFTS in [facility], 10/2023: LFTS in [facility], 03/2024: liver test in [facility] Dilated Eye Exam: Patient educated to have ophthalmology visits at least once a year. 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 08/2013: New patient visit for Cystic Fibrosis related Diabetes Previous diabetes related labs from [facility] and [facility] systems reviewed prior to today's office visit. [...] (HCC) History of transfusion Hypertension Liver disease alf (current) use of insulin (HCC) Transfusion history [...] by mouth two times a day. Insulin Mabank, Disposable, (BD YARON 2ND GEN PEN NEEDLE) [...] as needed for wheezing/shortness of breath. Vit A,C,G-Bihz-Ezesem (PRESERVISION AREDS) 4,296 mcg-226 mg-90 mg cap [...] instructed twice daily. Blood-Glucose Meter,Continuous (DEXCOM G7 SHIFT SUPERVISOR RN) [facility] For monitoring sugars glucagon (BAQSIMI) 3 mg/actuation nasal spray Use 1 Montour in the nose as needed. May repeat [...] 7. Discussed therapeutic lifestyle changes. Stephie Ramirez APRN.ACID CLEANER documented in this encounter [facility] 03-09-2024 Note HNO ID: [id number] Author: STEPHIE RAMIREZ APRN.CNP Service: ? Author [...] further kidney damage., 10/2022: prot/creat ratio in [facility], making appointment with nephrology, 07/2023: prot/creat ratio in [facility] Lipid Profile:10/2013: TC 111, HDL 42, LDL [...] results in care everywhere, 01/2020: labs in [facility], 07/2020; Alkaline Phosphatase 725 (45-117), ALT 77 (16-61), AST 163 (15-37), 12/2020: results in care everywhere., 03/2021: results In care everywhere, 12/2021: Alkaline Phosphatase 918 (38-113), bone percent 13.9%, liver percent 86.1 , 12/2022: liver function monitored by CF providers, 03/2023: in [facility], 08/2023: LFTS in [facility], 10/2023: LFTS in [facility], 03/2024: liver test in [facility] Dilated Eye Exam: Patient educated to have ophthalmology visits at least once a year. 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 08/2013: New patient visit for Cystic Fibrosis related Diabetes Previous diabetes related labs from [facility] and [facility] systems reviewed prior to today's office [...] amounts of c (more content not included)... [facility] 03-01-2024 Miscellaneous Notes Scheduling arranged appt at [place] for tomorrow afternoon. Patient is aware. Received call from [facility] requesting an apointment for PICC line removal with one of [facility]'s general surgeons. Patient has been scheduled on 03/26/[address] Gotti and placed on wait list. Please notify patient if he is scheduled with the incorrect provider for the removal. Patient called and stated his PICC Line has stopped flushing as of last night and wanted to know what to do about it? Should he go to [facility] to have it removed? Call back [phone] documented in this encounter [facility] 02-25-2024 History of Presen t [...] ---Referral to ENT for surgical eval. Appt [phone]. 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 Burke France in 2019 for [...] ordered ---Following with Dr. Francis Ramirez at [facility] Vitamin D 25 Hydroxy (ng/mL) Date Value 02/27/2024 32.4 Hemoglobin A1C Date Value Ref Range Status 02/03/2024 6.3 (H) 4.3 - 5.6 % Final Comment: [place] [employer] guidelines indicate that patients with HgbA1c in the range 5.7-6.4% are at increased risk for development of diabetes, and intervention by lifestyle modification may be beneficial. HgbA1c greater or equal to 6.5% is considered diagnostic of diabetes. 07/03/2023 6.9 (H) 4.3 - 5.6 % Final Comment: [place] [employer] guidelines indicate that patients with HgbA1c in the range 5.7-6.4% are at increased risk for development of diabetes, and intervention by lifestyle modification may be beneficial. HgbA1c greater or equal to 6.5% is considered diagnostic of diabetes. 03/08/2023 7.7 (H) 4.3 - 5.6 % Final Comment: [place] [employer] guidelines indicate that patients with HgbA1c in the range 5.7-6.4% are at increased risk for development of diabetes, and intervention by lifestyle modification may be beneficial. HgbA1c greater or equal to 6.5% is considered diagnostic of diabetes. Hemoglobin A1C (POCT) Date Value Ref Range Status 03/09/2024 6.1 (A) 4.3 - 5.6 % Final Comment: Location:[facility], [address], [place], [address] Point of care (POC) Hemoglobin A1c (HGBA1C) [...] specific diabetes management situations: The POC device lacquer sizer provides a normal range of 4.2% to 6.5% for the HGBA1C POC test. However, the [place] [employer] guidelines indicate that patients with [...] 6.4 4.2 - 5.6 % Final Comment: Location:[facility], [address] [place] [address], [id number] Point of care (POC) Hemoglobin A1c (HGBA1C) [...] specific diabetes management situations: The POC device lacquer sizer provides a normal range of 4.2% to 6.5% for the HGBA1C POC test. However, the [place] [employer] guidelines indicate that patients with [...] visit: 0 Hospitalizations since last visit: 0 CEYX/Phone Messages since last visit: Exacerbations in the last 12 months: -Hospital Admit: 07/02/23-07/29/23 treated with Vancomycin through 07/06, Minocycline through 07/22, and Meropenum through 07/24 (not discharged home on any IV abx) -Hospital Admit: 03/07/23-03/11/23 -> discharged on Home IV abx Vanc and Larisa through 04/01/23 Immunization History Administered Date(s) Administered COVID-19 original vaccine, age 12+ yr, monovalent ([employer] - PURPLE TOP) 12/24/2020 01/21/2021 12/05/2021 COVID-19 vaccine, age 12+ yr, bivalent (The [employer]Par[employer]igm) 12/04/2022 Haemophilus influenzae b (HbOC) vaccine, 4-dose [...] vaccine, quadrivalent, unspecified formulation 05/27/2012 novel influenza (O9I7-13) vaccine, PF 10/19/2009 pneumococcal (PCV7) vaccine, 7 [...] (HCC) History of transfusion 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 Insulin Mabank, Disposable, (BD YARON 2ND GEN PEN NEEDLE) [...] times a week. Blood-Glucose Meter,Continuous (DEXCOM G7 SHIFT SUPERVISOR RN) [facility] For monitoring sugars glucagon (BAQSIMI) 3 mg/actuation nasal spray Use 1 Montour in the nose as needed. May repeat [...] times a day for 5 days. Vit A,C,L-Bhvw-Cqeajc (PRESERVISION AREDS) 4,296 mcg-226 mg-90 mg cap [...] recent labs LAST LAB RESULTS: ---Reviewed in [facility] CBC with diff: WBC 4.0 02/24/2024 RBC 2.63 02/16/2024 Hemoglobin 7.5 02/24/2024 Hematocrit 23.1 02/24/2024 MCV 93.2 02/16/2024 MCH 30.8 02/16/2024 MCHC 33.1 02/16/2024 RDW-CV 15.9 02/16/2024 Platelet Count 225 02/24/2024 MPV 10.5 02/16/2024 Neutrophils % 45.4 02/24/2024 Lymph% 23.1 02/12/2024 Mccone% 8.8 02/12/2024 Eosinophils % 12.1 02/24/2024 Baso% 1.5 02/12/2024 Abs Neut (Segs + Bands) 1.8 02/24/2024 Abs Mccone 0.53 02/12/2024 Abs Eosin 0.41 02/12/2024 Abs [...] (A) 4.3 - 5.6 % Final Comment: Location:[facility], [address] [place] [address], [facility] Point of care (POC) Hemoglobin A1c (HGBA1C) [...] specific diabetes management situations: The POC device lacquer sizer provides a normal range of 4.2% to 6.5% for the HGBA1C POC test. However, the [place] [employer] guidelines indicate that patients with [...] cell lifespan. SPIROMETRY: Reviewed in EPIC ID: [id number] Name: JAY BARBER Race: White Ht: 62.01 in Wt: 89.07 lbs Age: 28 Gender: Male : 1995 Dx: Cystic fibrosis with pulmonary manifestations Smoking Hx: Non-smoker Doctor: ALEX PINON Test Date: 02/25/2024 Site: [facility] Tech: Padma Campbell PRE-BRONCH POST-BRONCH Pre LLN Pred ULN %Pred Post %Pred %Chg SPIROMETRY FVC (L) 2.43 2.84 3.65 4.47 66 FEV1 (L) 0.85 2.43 3.13 3.79 27 FEV1/FVC 0.35 0.75 0.86 0.94 40 PEF L/s (L/sec) 3.77 6.74 8.56 10.38 44 FEF50 (L/sec) 0.28 1.99 4.11 6.24 6 FIF50 (L/sec) 2.74 FEF50/FIF50 0.10 90-100 FIVC (L) 2.25 UVI71-72 (L/sec) 0.23 2.29 3.70 5.44 6 Time (sec) 14.69 FET PEF (sec) 0.04 MACIEL (L) 0.03 Vol Extrap % (%) 1 SPIROMETRY BASELINE ONLY - ordered on 02/25/2024 ID: [id number] Name: JAY BARBER Race: White Ht: 62.01 [...] 2.81 FEF50/FIF50 0.09 90-100 FIVC (L) 2.27 ZGY18-89 (L/sec) 0.22 2.29 3.70 5.44 5 Time (sec) 15.19 FET PEF (sec) 0.04 MACIEL (L) 0.03 Vol Extrap % (%) 1 SPIROMETRY BASELINE ONLY ([id number]) - ordered on 11/12/23 ID: [id number] Name: JAY BARBER Race: White Ht: 62.01 [...] 2.61 FEF50/FIF50 0.11 90-100 FIVC (L) 2.20 XZQ84-24 (L/sec) 0.24 2.30 3.71 5.45 6 Time (sec) 14.86 FET PEF (sec) 0.04 MACIEL (L) 0.04 Vol Extrap % (%) 2 SPIROMETRY BASELINE ONLY ([id number]) - ordered on 09/24/23 ID: [id number] Name: JAY BARBER Race: White Ht: 62.01 in Wt: 87.52 lbs Age: 28 Gender: Male : 1995 Dx: Cystic fibrosis_ Smoking Hx: Non-smoker Doctor: JEAN PIERRE KILGORE Test Date: 09/24/2023 Site: [facility] Tech: Padma Campbell PRE-BRONCH POST-BRONCH Pre LLN Pred ULN %Pred Post %Pred %Chg SPIROMETRY FVC (L) 2.71 2.84 3.65 4.47 74 FEV1 (L) 1.03 2.44 3.13 3.80 33 FEV1/FVC 0.38 0.75 0.86 0.94 44 PEF L/s (L/sec) 4.03 6.74 8.56 10.37 47 FEF50 (L/sec) 0.36 2.00 4.13 6.25 8 FIF50 (L/sec) 2.47 FEF50/FIF50 0.15 90-100 FIVC (L) 2.43 HCM52-58 (L/sec) 0.29 2.30 3.71 5.46 7 Time (sec) 14.96 FET PEF (sec) 0.04 MACIEL (L) 0.03 Vol Extrap % (%) 1 SPIROMETRY BASELINE ONLY ([id number]) - ordered on 07/02/23 ID: [id number] Name: JAY BARBER Race: White Ht: 62.01 [...] 3.24 FEF50/FIF50 0.12 90-100 FIVC (L) 2.30 QUM70-74 (L/sec) 0.31 2.31 3.72 5.47 8 Time [...] with treatment plan. Return to clinic at [facility] in 4 weeks, with spirometry (spirometry baseline). I spent a total of 85 minutes on the date of the service which included preparing to see the patient, [id number]-[id number] patient care, completing clinical documentation, performing a medically appropriate examination, and counseling and educating the patient/family/caregiver. Electronically Signed: Jean Pierre Kilgore MD, FRANCI, FACP [facility] Adult Cystic Fibrosis and Bronchiectasis Center Respiratory [place] [facility] Adult CF Patients [phone]. Adult patients use option #2 Bronchiectasis (Non-CF) Patients [phone] Surgical Nurse Practitioner: Nell Lozano [phone] Email: [email or web address] Office: [phone] February 25, 2024 documented in this encounter [facility] 02-25-2024 History of Presen t [...] visit. Either the patient or their legal group sales representative has been informed of the risks [...] OPAT today. Okay to remove PICC. Notified [facility] at [phone], verbal orders given to Peewee (pharmacist). Called patient to update on plan - no answer, left voicemail advising to stop IV vanc and meropenem at this time. Fiordaliza Mcfarlane RPh 02/25/2024 9:39 AM documented in this encounter [facility] 02-20-2024 Miscellaneous Notes Pt notified office that he received letter from [facility] stating they will not pay for the last 3 days of his hospitalization. SW left [facility] re: likely utilization review had not received all information that required him to stay after initial copat was written. Instructed him to just hang on to the letter. Hospital will likely send necessary documentation to get stay approved. Pt to let me know if he receive further documentation or bill. documented in this encounter [facility] 02-19-2024 Miscellaneous Notes SW handling patient's letter [...] Patient received a letter from his insurance [employer] regarding his inpatient stay stating he will not be covered for February 12 & . Patient has questions regarding this letter and wants to know [facility] or bring the letter to his appointment with Dr. Kilgore next week? Please advise [phone] documented in this encounter [facility] 02-19-2024 History of Presen t illness Narrative [facility] OPAT PHARMACIST VANCOMYCIN DOSING NOTE Patient [...] sooner. 5. Notified [facility] at [phone], verbal orders given to Rupert (pharmacist). Advised [...] questions, please contact Fiordaliza Mcfarlane RPh at [phone]. Age: [age] year old Allergies: ALLERGIES Allergen [...] Fiordaliza Mcfarlane RPh documented in this encounter [facility] 02-18-2024 Miscellaneous Notes Addended by: ZAIDA SANTOS on: 02/18/2024 03:41 PM Modules accepted: Orders documented in this encounter [facility] 02-18-2024 History of Presen t [...] 2023 Last OGTT/CFRD: +CFRD -> Follows with [facility] Dexa: Completed on 09/24/23 -> Lowest [...] Ibuprofen: No Referral to Endo: follows with [facility]- next visit scheduled for 03/09/24 Referral to Transplant: Lung and liver discussed extensively with patient during July 2023 hospital admission - pt eventually deferred at hospital discharge EPIC/Phone Messages since last visit: -needed Miralax clean out--stayed on maintenance dose -discussed vitamin supplementation Plan for visit: - Yohana Stuart visit - F/u visit from [facility] admission 02/03/24 - 02/16/24 for CF Exacerbation and Upper GIB - treated with IV Meropenem, Minocycline and Vancomycin while inpatient - transferred to MICU and had EGD done on 02/05/24 that showed two duodenal ulcers (not actively bleeding) - treated with epi injection and clip x 2 - discharged home on IV meropenem and IV vancomycin via PICC line - goes to [facility] for weekly labs and line care (tentative end date of IV abx on 02/23/24) - [place] ordered and scheduled - Should have brought a sputum sample with him - cup mailed to him on 02/18/24 - 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 Lindo - REMIND PATIENT: Has Endocrinology visit scheduled at [facility] on 03/09/24 with Stephie Ramirez - needs f/u from his latest DEXA results on 09/22/23 -> lowest T-score -3.1 in L femoral neck - Already has a 3 month f/u visit scheduled with Dr. Kilgore at [facility] on 05/05/24 documented in this encounter [facility] 02-18-2024 History of Presen t [...] 2023 Last OGTT/CFRD: +CFRD -> Follows with [facility] Dexa: Completed on 09/24/23 -> Lowest [...] PRBC on 02/13/24 Plan for visit: - [facility] visit - Hospital Admission f/u - was at [facility] from 02/03/24 - 02/16/24 for CF [...] RT, and SW - complete at next [facility] visit on 05/05/24 - REMIND PATIENT: He has a hepatology visit scheduled at [facility] on 04/07/[address] Lindo - REMIND PATIENT: He has an endocrinology visit at [facility] with Stephie Ramirez CNP ON 03/09/24 - needs to f/u regarding his bone density results - Already has a 3 month f/u visit with Dr. Kilgore scheduled on 05/05/24 at [facility] documented in this encounter [facility] 02-18-2024 History of Presen t [...] to his local [facility] lab location in [place] to have this collected. Orders have been placed. Fiordaliza Mcfarlane RPh 02/18/2024 4:33 PM documented in this encounter [facility] 02-18-2024 Miscellaneous Notes Addended by: FIORDALIZA MCFARLANE on: 02/18/2024 04:35 PM Modules accepted: Orders documented in this encounter [facility] 02-18-2024 Miscellaneous Notes Called patient and asked that he obtain a sputum sample prior to his upcoming appointment next week with Dr. Kilgore in order to drop it off while he's there. Patient agreeable. Sputum cup provided to Validation Architect to mail to patient. documented in this encounter [facility] 02-17-2024 Miscellaneous Notes (RF1) Have you noticed [...] Randall Rodríguez RN documented in this encounter [facility] 02-16-2024 History of Presen t illness Narrative Coordinated care with inpatient primary pulmonary team and CF team. Recommended celiac labs to assess for celiac disease given low albumin and ongoing lower extremity edema. Patient will get outpatient with labs 02/[address] documented in this encounter [facility] 02-15-2024 Miscellaneous Notes Follow up appointment: Hepatology Schedule follow up appointment within 1 week Patient eligible for virtual visit? Schedule with [facility] Provider [facility] Provider: TIA LINDO [[id number]] Testing Ordered Follow Up Reason: CF-related liver disease Please advise and assist with scheduling pt for a f/u w/ Dr. Lindo at the provider's convenience. Thank you! documented in this encounter [facility] 02-13-2024 History of Presen t [...] PICC Team while admitted Home Care Agency: flying squad salesperson: OP clinic: [facility] for labs and line care Home [facility]fusion Pharm[facility] Agency: flying squad salesperson: [facility] Fax: Have we called HC agency to follow up orders/additional needs? TBD Did we need to contact HC Liaison (Teresa Medina or Mckenna Masterson): Yes or No. Issues: No Labs ordered: CBC w/ Diff CMP Pre-dose Vancomycin Labs once or twice weekly: Twice weekly Days: TBD Patient phone number [phone] Were they contacted? Clinic follow-up appointment date: TBD documented in this encounter [facility] 02-12-2024 History of Presen t illness Narrative PULM FUNCTION SMARTBLOCK: Inpatient: Yes Spirometry: 1 documented in this encounter [facility] 02-09-2024 History of Presen t illness Narrative Images from the original note were not included. [facility] Outpatient Parenteral Antimicrobial Therapy (OPAT) Start Form Patient Info Patient MRN Patient Name Address Date of [id number] Jay Barber [address] [facility] [id number] 1995 Start Date 02/09/2024 Physician Group Cc_main [...] Follow Up (Regular hours), (Off hours) Address [address] [place] [address] Prescribing Provider's signature - electronically signed by Jasmyn Bailon MD on 02/09/24 at 4:00 PM documented in this encounter [facility] 02-05-2024 History of Past i llness Narrative Problem Noted Date Diagnosed Date Resolved Date Acute bleeding 02/05/2024 02/16/2024 Cystic fibrosis with pulmonary exacerbation 11/05/2022 02/16/2024 documented as of this encounter (statuses as of 02/16/2024) [facility] History of Past illness Narrative* Problem Noted Date Diagnosed Date Resolved Date Acute bleeding 02/05/2024 02/16/2024 Cystic fibrosis with pulmonary exacerbation 11/05/2022 02/16/2024 documented as of this encounter (statuses as of 02/17/2024) [facility] History of Past illness Narrative* Problem Noted Date Diagnosed Date Resolved Date Acute bleeding 02/05/2024 02/16/2024 Cystic fibrosis with pulmonary exacerbation 11/05/2022 02/16/2024 documented as of this encounter (statuses as of 02/17/2024) [facility] History of Past illness Narrative* Problem Noted Date Diagnosed Date Resolved Date Acute bleeding 02/05/2024 02/16/2024 Cystic fibrosis with pulmonary exacerbation 11/05/2022 02/16/2024 documented as of this encounter (statuses as of 02/18/2024) [facility] History of Past illness Narrative* Problem Noted Date Diagnosed Date Resolved Date Acute bleeding 02/05/2024 02/16/2024 Cystic fibrosis with pulmonary exacerbation 11/05/2022 02/16/2024 documented as of this encounter (statuses as of 02/18/2024) [facility] History of Past illness Narrative* Problem Noted Date Diagnosed Date Resolved Date Acute bleeding 02/05/2024 02/16/2024 Cystic fibrosis with pulmonary exacerbation 11/05/2022 02/16/2024 documented as of this encounter (statuses as of 02/18/2024) [facility] History of Past illness Narrative* Problem Noted Date Diagnosed Date Resolved Date Acute bleeding 02/05/2024 02/16/2024 Cystic fibrosis with pulmonary exacerbation 11/05/2022 02/16/2024 documented as of this encounter (statuses as of 02/18/2024) [facility] History of Past illness Narrative* Problem Noted Date Diagnosed Date Resolved Date Acute bleeding 02/05/2024 02/16/2024 Cystic fibrosis with pulmonary exacerbation 11/05/2022 02/16/2024 documented as of this encounter (statuses as of 02/18/2024) [facility] History of Past illness Narrative* Problem Noted Date Diagnosed Date Resolved Date Acute bleeding 02/05/2024 02/16/2024 Cystic fibrosis with pulmonary exacerbation 11/05/2022 02/16/2024 documented as of this encounter (statuses as of 02/18/2024) [facility] History of Past illness Narrative* Problem Noted Date Diagnosed Date Resolved Date Acute bleeding 02/05/2024 02/16/2024 Cystic fibrosis with pulmonary exacerbation 11/05/2022 02/16/2024 documented as of this encounter (statuses as of 02/20/2024) [facility] History of Past illness Narrative* Problem Noted Date Diagnosed Date Resolved Date Acute bleeding 02/05/2024 02/16/2024 Cystic fibrosis with pulmonary exacerbation 11/05/2022 02/16/2024 documented as of this encounter (statuses as of 02/24/2024) [facility]03-07-2024 History of Past illness Narrative* Problem Noted Date Diagnosed Date Resolved Date Acute bleeding 02/05/2024 02/16/2024 Cystic fibrosis with pulmonary exacerbation 11/05/2022 02/16/2024 documented as of this encounter (statuses as of 02/25/2024) [facility]03-07-2024 History of Past illness Narrative* Problem Noted Date Diagnosed Date Resolved Date Acute bleeding 02/05/2024 02/16/2024 Cystic fibrosis with pulmonary exacerbation 11/05/2022 02/16/2024 documented as of this encounter (statuses as of 03/01/2024) [facility]03-07-2024 History of Past illness Narrative* Problem Noted Date Diagnosed Date Resolved Date Acute bleeding 02/05/2024 02/16/2024 Cystic fibrosis with pulmonary exacerbation 11/05/2022 02/16/2024 documented as of this encounter (statuses as of 03/01/2024) [facility]03-07[facility]2024 History of Past illness Narrative* Problem Noted Date Diagnosed Date Resolved Date Acute bleeding 02/05/2024 02/16/2024 Cystic fibrosis with pulmonary exacerbation 11/05/2022 02/16/2024 documented as of this encounter (statuses as of 03/02/2024) [facility]03-07-2024 History of Past illness Narrative* Problem Noted Date Diagnosed Date Resolved Date Acute bleeding 02/05/2024 02/16/2024 Cystic fibrosis with pulmonary exacerbation 11/05/2022 02/16/2024 documented as of this encounter (statuses as of 03/08/2024) [facility]07[facility]20[facility] History of Past illness Narrative* Problem Noted Date Diagnosed Date Resolved Date Acute bleeding 02/05/2024 02/16/2024 Cystic fibrosis with pulmonary exacerbation 11/05/2022 02/16/2024 documented as of this encounter (statuses as of 03/10/2024) [facility]03-07-2024 History of Past illness Narrative* Problem Noted Date Diagnosed Date Resolved Date Acute bleeding 02/05/2024 02/16/2024 Cystic fibrosis with pulmonary exacerbation 11/05/2022 02/16/2024 documented as of this encounter (statuses as of 03/18/2024) [facility]03-05-2024 Miscellaneous Notes* Telephone Encounter - [...] abdomen. Let patient know to come to [facility] ED as soon as he can [...] clinical guidance. Jay (Self) documented in this encounterSumma Health W[facility]02-[facility] History of Present illness Narrative* [...] NEEDS Last OGTT/CFRD: +CFRD -> Follows with [facility] Dexa: Completed on 09/24/23 -> Lowest [...] Ibuprofen: No Referral to Endo: follows with [facility]; scheduled 03/09/24 Referral to Transplant: Lung [...] and stayed on minocycline for [address] documented in this encounterSumma Health W[facility]12-[facility] History of Present illness Narrative* Stephie Ramirez, ADALI.ACID CLEANER - 11/20/2023 11:44 AM EST Subjective Important [...] further kidney damage., 10/2022: prot/creat ratio in [facility], making appointment with nephrology, 07/2023: prot/creat ratio in [facility] Lipid Profile:10/2013: TC 111, HDL 42, LDL [...] results in care everywhere, 12/2019: results in [facility] everywhere, 01/2020: labs in [facility], 07/2020; Alkaline Phosphatase 725 (45-117), ALT 77 (16-61), AST 163 (15-37), 12/2020: results in care everywhere., 03/2021: results In care everywhere, 12/2021: Alkaline Phosphatase 918 (38-113), bone percent 13.9%, liver percent 86.1 , 12/2022: liver function monitored by CF providers, 03/2023: in [facility], 08/2023: LFTS in [facility], 10/2023: LFTS in [facility] Dilated Eye Exam: Patient educated to have ophthalmology visits at least once a year. 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 08/2013: New patient visit for Cystic Fibrosis related Diabetes [facility] to [facility]'s office visit. [...] (HCC) History of transfusion Hypertension Liver disease alf (current) use of insulin (HCC) Transfusion history [...] as needed for wheezing/shortness of breath. Vit A,C,A-Hwin-Nljwcx (PRESERVISION AREDS) 4,296 mcg-226 mg-90 mg cap [...] instructed twice daily. Blood-Glucose Meter,Continuous (DEXCOM G7 SHIFT SUPERVISOR RN) misc For monitoring sugars Blood-Glucose Sensor (DEXCOM G7 SENSOR) jean-paul One sensor every 10 days insulin lispro (HUMALOG KWIKPEN INSULIN) 100 unit/mL Dose varies units with meals and sliding scale, using about 30 total units a day Insulin Mabank, Disposable, (BD ULTRA-FINE YARON PEN NEEDLE) 32 gauge x 5/32 5x/day glucagon (BAQSIMI) 3 mg/actuation nasal spray Use 1 Montour in the nose as needed. May repeat [...] this visit. Physical Exam documented in this encounterSumma Health [facility] Center12-13-2023 History of Present illness Narrative* Varsha Thomason LISW - 11/12/2023 4:43 PM EST CYSTIC FIBROSIS SOCIAL WORK PROGRESS NOTE DATE: 11/12/23 TIME: 4:30 PM Jay is here for a follow up appointment. Pt is still working with CF [employer]. W to reach out to [employer] re: possible missed medical records. Pt having a difficult time adjusting to not working. Doesn't feel useful or purposeful. Completed mental health screening today. PHQ9- 7 ELVIS-6 Mental Health Coordination No referrals needed Discussed options such as volunteering, going to the gym, pulmonary rehab, and/or a class, or picking up a new hobby, when he is feeling good. 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 Discussed CF [employer]/exercise grants. He would consider Pulmonary rehab. Will look into local locations for him and have MD send order. SW will f/u with pt re discussed above. CALOS Stubbs-S Cystic Fibrosis Social Work V. [phone] P. [phone] documented in this encounterSumma Health W[facility]12-08-2023 History of Present illness Narrative* [...] 03/08/23 Last OGTT/CFRD: +CFRD -> Follows with [facility] Dexa: Completed on 09/24/23 -> Lowest [...] EPIC/Phone Messages since last visit: -10/17/23 : [facility] with complaints of hemoptysis - was prescribed TXA -09/30/23 : msg asking for disability letter -09/29/23 : Dr. Pete sent message to patient regarding his bone density results - instructed to f/u with Stephie Ramirez in Endo Plan for visit: - [place] ordered and scheduled for correct floor - F/u regarding DEXA completed on 09/24/23 - did he arrange f/u as instructed? Lowest T-score is -3.1 in left femoral neck - Encourage patient to make a f/u visit with hepatology? (Has declined recommendations for lung/liver transplant) - Needs Mental Health Screening documented in this encounterSumma Health [facility]11-03-2023 Miscellaneous Notes* Telephone Encounter - She Pete DO - 10/03/2023 11:29 AM EDT Called and spoke with Vero, pharmacist at [employer]. Explained his adjusted dose due to liver disease. Taking 2 orange pills on even days of the month and 1 orange pill on odd days of the month, No bluepills She Pete DO October 03, 2023 11:31 AM * Telephone Encounter - Daniel Goel - 10/03/2023 10:37 AM EDT Received call from [employer] with [employer] requesting clarification on the directions on the patient's (TRIKAFTA). Is it: Alternate between 2(starting 07/30) and 1 tablet every morning , hold evening dose or Take 2 combination tablets in the morning and take 1 Ivacaftor tablet in the evening. DO NOT crush,chew, or open. Class: Med Update Please call [phone] option 1, option 6 or fax [phone] documented in this encounterSumma Health W[facility] Center10-25-2023 History of Present illness Narrative* Sydni Duarte [...] 24, 2023 9:15 AM documented in this encounterSumma Health W[facility]10-25-2023 History of Present illness Narrative* She Pete [...] ---Referral to ENT for surgical eval. Appt [phone]. Severe protein calorie malnutrition - continue ensures - needs to see Fernando Prior Invasive Pulmonary Aspergillus infection/Trichosporonosis - treated with voriconazole by ID hr business partner consultant Dr. Burke France in 2020 for [...] done ---Following with Dr. Francis Ramirez at [facility] ANNUAL SCREENING: ANNUAL LABS: 07/2023 OGTT: NA [...] COVID-19 original vaccine, age 12+ yr, monovalent (RobotsAlive - PURPLE TOP) 12/24/2020 01/21/2021 12/05/2021 COVID-19 vaccine, age 12+ yr, bivalent (CareerStarter-BIONTECH) 12/04/2022 Haemophilus influenzae b (HbOC) vaccine, 4-dose [...] vaccine, quadrivalent, unspecified formulation 05/27/2012 novel influenza (M6I6-70) vaccine, PF 10/19/2009 pneumococcal (PCV13) vaccine, 13 [...] (HCC) History of transfusion Hypertension Liver disease alf (current) use of insulin (HCC) Transfusion history [...] Rash, GI Upset CURRENT OUTPATIENT MEDICATIONS: Vit A,C,Q-Wwww-Xamkbp (PRESERVISION AREDS) 4,296 mcg-226 mg-90 mg cap [...] instructed twice daily. Blood-Glucose Meter,Continuous (DEXCOM G7 SHIFT SUPERVISOR RN) [facility] For monitoring sugars insulin lispro (HUMALOG KWIKPEN INSULIN) 100 unit/mL Dose varies units with meals and sliding scale, using about 30 total units a day Insulin Mabank, Disposable, (BD ULTRA-FINE YARON PEN NEEDLE) 32 gauge x 5/32 5x/day glucagon (BAQSIMI) 3 mg/actuation nasal spray Use 1 Montour in the nose as needed. May repeat [...] recent EKG LAST LAB RESULTS: ---Reviewed in [facility] CBC with diff: WBC 8.00 09/10/2023 RBC 3.22 09/10/2023 Hemoglobin 10.0 09/10/2023 Hematocrit 28.8 09/10/2023 MCV 89.4 09/10/2023 MCH 31.1 09/10/2023 MCHC 34.7 09/10/2023 RDW-CV 14.3 09/10/2023 Platelet Count 185 09/10/2023 MPV 9.2 09/10/2023 Neut% 66.9 09/10/2023 Lymph% 20.1 09/10/2023 Mccone% 8.1 09/10/2023 Eosin% 16.6 11/26/2022 Baso% 0.8 09/10/2023 Abs Neut (ANC) 5.36 09/10/2023 Abs Mccone 0.65 09/10/2023 Abs Eosin 0.30 09/10/2023 Abs [...] 05/29/2018 10.3 06/25/2016 7.0 SPIROMETRY: Reviewed in [facility] MICROBIOLOGY: Reviewed MICROBIOLOGY SNAPSHOT Written and verbal health teaching given to patient, patient verbalizes understanding and agrees with treatment plan. I spent a total of 50 minutes on the date of the service which included preparing to see the patient, [id number] patient care, completing clinical documentation, obtaining and/or reviewing separately obtained history, performing a medically appropriate examination, counseling and educating the pat ient/family/caregiver, ordering medications, tests, or procedures, communicating with other HCPs (not separately reported), independently interpreting results (not separately reported), communicatingresults to the patient/family/caregiver, and care coordination (not separately reported). Electronically Signed: She Pete DO September 24, 2023 documented in this encounterSumma Health W[facility] Center10-18-2023 History of Present illness Narrative* [...] None Other issues: Plan for visit: - [facility] office visit - Sj ordered and scheduled - Dexa ordered and scheduled for same day - Needs fibroscan ordered and scheduled - Needs annual RT visit during next [facility] visit - Needs Mental Health Screening during next [facility] visit documented in this encounterSumma Health Wadsworth - [facility]itt[facility] Center09-21-2023 Miscellaneous Notes* Telephone Encounter - Sally Schneider APRN.ACID CLEANER - 08/21/2023 12:35 PM EDT Called patient , his potassium was elevated on labs from 08/18. He reports feeling pretty good. No issue with swelling or abdominal fluid He has been taking torsemide daily still Plan Kayexalate X 1 dose He will get labs tomorrow repeat CMP and CBC/diff Sally Schneider APRN.ACID CLEANER documented in this encounterSumma Health Wadsworth - [facility] Center09-21-2023 Miscellaneous Notes* Telephone Encounter - Stacie Fuentes LPN - 08/21/2023 8:33 AM EDT Patient notified and verbalized understanding. Stacie Fuentes LPN * Telephone Encounter - Frdeo Moreno DO - 08/20/2023 5:17 PM EDT Can let him know the lab testing show that he is slightly low on iron. I would recommend trying OTCferrous sulfate 325 mg 1 tablet every other day. Fredo Moreno DO documented in this encounterSumma Health Wad[facility] - [facility] Center09-18-2023 History of Present illness Narrative* Fredo Moreno [...] (HCC) History of transfusion Hypertension Liver disease alf (current) use of insulin (HCC) Transfusion history [...] (BAQSIMI) 3 mg/actuation nasal spray Use 1 Montour in the nose as needed. May repeat [...] test strip 3x/day Blood-Glucose Meter,Continuous (DEXCOM G7 SHIFT SUPERVISOR RN) misc For monitoring sugars Blood-Glucose Sensor (DEXCOM G7 SENSOR) jean-paul One sensor every 10 days Insulin Mabank, Disposable, (BD ULTRA-FINE YARON PEN NEEDLE) 32 [...] Lymph 1.00 - 4.00 k/uL 1.20 1.52 Mccone% % 8.6 11.3 Abs Mccone <0.87 k/uL 0.37 0.78 Eosin% % 8.6 [...] which included preparing to see the patient, [id number] patient care, completing clinical documentation, obtaining and/or reviewing separately obtained history, performing a medically appropriate examination, counseling and educating the pat ient/family/caregiver, ordering medications, tests, or procedures, communicating with other HCPs (not separately reported), and communicating results to the patient/family/caregiver. Fredo Moreno DO documented in this encounterSumma Health [facility]09-12-2023 History of Present illness Narrative* Cheyanne Kraus RRT - 08/12/2023 10:47 AM EDT Faxed Nebulizer Order, notes, demographics to [facility] Doctor at [phone], ph [phone]. Patient ndd not receive unit from Pulmonary Rehab Coordinator. Unit will be shipped by [facility] . Cheyanne Kraus RRT documented in this encounterSumma Health [facility]09-11-2023 History of Present illness Narrative* Stephie Ramirez APRN.ACID CLEANER - 08/11/2023 1:33 PM EDT Subjective Date of encounter: 08/11/2023 Jay Barbre (1995), is a 28 year old male [...] results in care everywhere, 01/2020: labs in [facility], 07/2020; Alkaline Phosphatase 725 (45-117), ALT 77 (16-61), AST 163 (15-37), 12/2020: results in care everywhere., 03/2021: results In care everywhere, 12/2021: Alkaline Phosphatase 918 (38-113), bone percent 13.9%, liver percent 86.1 , 12/2022: liver function monitored by CF providers, 03/2023: in [facility], 08/2023: LFTS in [facility] Dilated Eye Exam: Patient educated to have ophthalmology visits at least once a year. 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 08/2013: New patient visit for Cystic Fibrosis related Diabetes Previous diabetes related labs from [facility] and [facility] systems reviewed prior to today's office [...] (HCC) History of transfusion Hypertension Liver disease alf (current) use of insulin (HCC) Transfusion history [...] instructed twice daily. Blood-Glucose Meter,Continuous (DEXCOM G7 SHIFT SUPERVISOR RN) [facility] For monitoring sugars Blood-Glucose Sensor (DEXCOM G7 SENSOR) jean-paul One sensor every 10 days insulin lispro (HUMALOG KWIKPEN INSULIN) 100 unit/mL Dose varies units with meals and sliding scale, using about 30 total units a day Insulin Mabank, Disposable, (BD ULTRA-FINE YARON PEN NEEDLE) 32 gauge x 5/32 5x/day glucagon (BAQSIMI) 3 mg/actuation nasal spray Use 1 Montour in the nose as needed. May repeat [...] 7. Discussed therapeutic lifestyle changes. Stephie Ramirez APRN.ACID CLEANER documented in this encounterSumma Health W[facility]09-06-2023 Miscellaneous Notes* Telephone Encounter - Varsha Thomason LISW - 08/06/2023 4:15 PM EDT DAVID signed by pt for medical records to be sent to the [facility]. Records to be securely sent to assistance program. documented in this encounterSumma Health Wadsworth - [facility]09-06-2023 History of Present illness Narrative* Jean Pierre Kilgore MD - 08/06/2023 1:52 PM EDT VIRTUAL VISIT PROGRESS NOTE This is a virtual visit using [employer] video visit. It required patient-provider interaction for themedical decision making as documented below. I have communicated my name and active licensure. The patient's identity and physical location wereverified at the time of this visit. 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 Blood-Glucose Meter,Continuous (DEXCOM G7 SHIFT SUPERVISOR RN) [facility] For monitoring sugars Blood-Glucose Sensor (DEXCOM G7 SENSOR) jean-paul One sensor every 10 days insulin lispro (HUMALOG KWIKPEN INSULIN) 100 unit/mL Dose varies units with meals and sliding scale, using about 30 total units a day Insulin Mabank, Disposable, (BD ULTRA-FINE YARON PEN NEEDLE) 32 gauge x 5/32 5x/day glucagon (BAQSIMI) 3 mg/actuation nasal spray Use 1 Montour in the nose as needed. May repeat [...] to baseline (best FEV1 since transferring to [facility] a year ago) FEV1%: 36% 07/24/23; FEV1%trend: [...] 4 weeks -has annual scheduled 09/16/23 on [facility] -schedule DEXA that day 2. ADVANCED LUNG [...] which included preparing to see the patient, wzlk-lr-esoy patient care, and completing clinical documentation Jean Pierre Kilgore MD documented in this encounterSumma Health Wad[facility] - [facility]09-05-2023 Miscellaneous Notes* Telephone Encounter - Zaida Santos [...] tomorrow with Dr. Kilgore documented in this encounterSumma Health Wadsworth - Ritt[facility] Center08-30-2023 Miscellaneous Notes* Telephone Encounter - Isaac Gibson - 07/30/2023 11:12 AM EDT 90 DAY SUPPLY request for Albuterol Inhaler Last office visit: 07/17/23 Future Appointment: 08/06/23 Pharmacy: [facility] Please approve or deny as appropriate. documented in this encounterSumma Health Wadsworth - [facility] Center08-24-2023 Miscellaneous Notes* Telephone Encounter - Zaida Santos RN - 07/24/2023 3:46 PM EDT Addressed by SW documented in this encounterSumma Health Wad[facility] - [facility] Center08-24-2023 History of Present illness Narrative* Alicia Coello Tech - 07/24/2023 2:09 PM EDT PULM FUNCTION SMARTBLOCK: Provider: Nabor Villasenor PA-C Inpatient: Yes Spirometry: 1 documented in this encounterSumma Health Wadsworth - [facility] Center08-17-2023 History of Present illness Narrative* Randall Weaver RRT - 2023 9:37 AM EDT PULM FUNCTION SMARTBLOCK: Provider: She Pete DO Inpatient: Yes Spirometry: 1 System: [facility] - [id number] documented in this encounterSumma Health Wadsworth - [facility] Center08-10-2023 History of Present illness Narrative* Tyler Davis Tech - 07/10/2023 1:19 PM EDT PULM FUNCTION SMARTBLOCK: Provider: She Pete DO Spirometry: 1 [id number] documented in this encounterSumma Health Wad[facility] - [facility]08-02-2023 History of Present illness Narrative* Varsha Thomason [...] unkwn Financial and Community Resources/Issues 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; [facility] [place] [facility] weeks Annual Household Income: 25,000 [facility]/Other: Adult [facility] Copay Assistance Program: eligible for [employer], but not needed Financial Concerns: Parking/transportation/medication: parking pass provided; no concerns obtaining or affording medications Daily Care Check in Completed: Yes/No: No Education School:[employer]-psychology major Any developmental issues/delays: none Educational Level of Father of Patient: unkwn Educational Level of Mother of Patient: unkwn Educational Level of Spouse: N/A Social History: -T/F care from [facility] -Advanced lung disease -Has not been interested in pursuing lung transplant -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 He just started this job 2 weeks ago. Requesting letter after admission when he can go back to work. He has [facility] Medicaid and adult [facility] for insurance. No issues obtaining [...] will continue to follow. documented in this encounterSumma Health Wadsworth - [facility]08-02-2023 History of Present illness Narrative* Cayetano Malik RRT - 07/02/2023 2:04 PM EDT PULM FUNCTION SMARTBLOCK: Provider: She Pete DO Spirometry: 1 documented in this encounterSumma Health Wadsworth - [facility]08-02-2023 History of Present illness Narrative* Sally Schneider [...] done ---Following with Dr. Francis Ramirez at [facility], last seen 04/07/2023 Latest Reference Range & [...] ---Referral to ENT for surgical eval. Appt [phone]. 8. Severe protein calorie malnutrition - continue ensures 9. Prior Invasive Pulmonary Aspergillus infection/Trichosporonosis - treated with voriconazole by ID hr business partner consultant Dr. Burke France in 2019 for [...] COVID-19 original vaccine, age 12+ yr, monovalent (RobotsAlive - PURPLE TOP) 12/24/2020 01/21/2021 12/05/2021 COVID-19 vaccine, age 12+ yr, bivalent (CareerStarter-Ask The Doctor) 12/04/2022 Haemophilus influenzae b (HbOC) vaccine, 4-dose [...] vaccine, quadrivalent, unspecified formulation 05/27/2012 novel influenza (R3A5-27) vaccine, PF 10/19/2009 pneumococcal (PCV13) vaccine, 13 valent (PREVNAR 13) 05/26/2019 pneumococcal (PCV7) vaccine, 7 valent (PREVNAR 7) 01/08/2006 pneumococcal (PPV23) vaccine, 23 valent (PNEUMOVAX 23) 10/23/2011 07/28/2019 poliovirus (IPV) vaccine, inactivated (IPOL) 1993 01/11/1994 05/20/1994 02/13/1995 tetanus diphtheria pertussis (Tdap) vaccine, age 7+ yr (ADACEL, BOOSTRIX) 05/29/2012 Immunization History Administered Date(s) Administered COVID-19 original vaccine, age 12+ yr, monovalent (RobotsAlive - PURPLE TOP) 12/24/2020 01/21/2021 12/05/2021 COVID-19 vaccine, age 12+ yr, bivalent (RobotsAlive) 12/04/2022 Haemophilus influenzae b (HbOC) vaccine, 4-dose [...] vaccine, quadrivalent, unspecified formulation 05/27/2012 novel influenza (M4N8-76) vaccine, PF 10/19/2009 pneumococcal (PCV13) vaccine, 13 [...] related to cystic fibrosis (HCC) 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 Blood-Glucose Meter,Continuous (DEXCOM G7 SHIFT SUPERVISOR RN) [facility] For monitoring sugars Blood-Glucose Sensor (DEXCOM G7 SENSOR) jean-paul One sensor every 10 days insulin lispro (HUMALOG KWIKPEN INSULIN) 100 unit/mL Dose varies units with meals and sliding scale, using about 30 total units a day Insulin Mabank, Disposable, (BD ULTRA-FINE YARON PEN NEEDLE) 32 gauge x 5/32 5x/day glucagon (BAQSIMI) 3 mg/actuation nasal spray Use 1 Montour in the nose as needed. May repeat [...] Take 10 mg by mouth once daily. btskosvmjpy-duhtfxkswd-svhxntrjm (TRIKAFTA) 100-50-75 mg(d) /150 mg (n) tablet [...] recent labs LAST LAB RESULTS: ---Reviewed in [facility] CBC with diff: WBC 6.65 03/24/2023 RBC 4.18 03/24/2023 Hemoglobin 12.9 03/24/2023 Hematocrit 38.6 03/24/2023 MCV 92.3 03/24/2023 MCH 30.9 03/24/2023 MCHC 33.4 03/24/2023 RDW-CV 12.7 03/24/2023 Platelet Count 244 03/24/2023 MPV 10.1 03/24/2023 Neutrophils % 56.6 03/24/2023 Lymph% 24.5 03/24/2023 Mccone% 7.4 03/24/2023 Eosin% 16.6 11/26/2022 Baso% 1.1 03/24/2023 Abs Neut (Segs + Bands) 3.77 03/24/2023 Abs Mccone 0.49 03/24/2023 Abs Eosin 0.66 03/24/2023 Abs [...] which included preparing to see the patient, seuf-gi-verf patient care, completing clinical documentation, performing a medically appropriate examination, counseling and educating the patient/family/caregiver, ordering medications, tests, or p rocedures, communicating results to the patient/family/caregiver, and care coordination (not separately reported). Electronically Signed: Sally Schneider CNP July 02, 2023 documented in this encounterSumma Health Wadsworth [facility]08-01-2023 Miscellaneous Notes* Telephone Encounter - Zaida Santos [...] schedule with a CF doctor. Dr. Pete's [place] schedule does not have an opening until mid August. Patient will see Dr. Kilgore if necessary ad possible as well. Please give patient a call to schedule followup in [facility]. documented in this encounterSumma Health Wadsworth - [facility]07-05-2023 History of Present illness Narrative* Jean Pierre [...] since 08/2022, 2nd best since transferring to [facility] a year ago) Complicated by chronic respiratory [...] done ---Following with Dr. Francis Ramirez at [facility], last seen 04/07/2023 Latest Reference Range & [...] ---Referral to ENT for surgical eval. Appt [phone]. 8. Severe protein calorie malnutrition - continue ensures 9. Prior Invasive Pulmonary Aspergillus infection/Trichosporonosis - treated with voriconazole by ID hr business partner consultant Dr. Burke France in 2019 for [...] COVID-19 original vaccine, age 12+ yr, monovalent ([employer]-Ask The Doctor - PURPLE TOP) 12/24/2020 01/21/2021 12/05/2021 COVID-19 vaccine, age 12+ yr, bivalent ([employer]) 12/04/2022 Haemophilus influenzae b (HbOC) vaccine, 4-dose [...] vaccine, quadrivalent, unspecified formulation 05/27/2012 novel influenza (V2B4-02) vaccine, PF 10/19/2009 pneumococcal (PCV13) vaccine, 13 [...] visit: 0 Prior exacerbation treatments per [facility] Procedures & IV/Oral Course: -12/15/95-12/23/95 Hospitalized [...] po X 2 weeks -11/13/2010 Hospital/surgery at [place]: Splenorenal shunt --- -03/13/2011 Home treatment Bactrim [...] related to cystic fibrosis (HCC) Liver disease alf (current) use of insulin (HCC) Transfusion history [...] instructed twice daily. Blood-Glucose Meter,Continuous (DEXCOM G7 SHIFT SUPERVISOR RN) [facility] For monitoring sugars Blood-Glucose Sensor (DEXCOM G7 SENSOR) jean-paul One sensor every 10 days insulin lispro (HUMALOG KWIKPEN INSULIN) 100 unit/mL Dose varies units with meals and sliding scale, using about 30 total units a day Insulin Mabank, Disposable, (BD ULTRA-FINE YARON PEN NEEDLE) 32 gauge x 5/32 5x/day glucagon (BAQSIMI) 3 mg/actuation nasal spray Use 1 Montour in the nose as needed. May repeat [...] tablet by mouth twice daily with meals. aapctrthbvu-vqnrlqqmdc-njrhyhajj (TRIKAFTA) 100-50-75 mg(d) /150 mg (n) tablet [...] and PFTs LAST LAB RESULTS: ---Reviewed in [facility] CBC with diff: WBC 6.65 03/24/2023 RBC 4.18 03/24/2023 Hemoglobin 12.9 03/24/2023 Hematocrit 38.6 03/24/2023 MCV 92.3 03/24/2023 MCH 30.9 03/24/2023 MCHC 33.4 03/24/2023 RDW-CV 12.7 03/24/2023 Platelet Count 244 03/24/2023 MPV 10.1 03/24/2023 Neutrophils % 56.6 03/24/2023 Lymph% 24.5 03/24/2023 Mccone% 7.4 03/24/2023 Eosin% 16.6 11/26/2022 Baso% 1.1 03/24/2023 Abs Neut (Segs + Bands) 3.77 03/24/2023 Abs Mccone 0.49 03/24/2023 Abs Eosin 0.66 03/24/2023 Abs [...] 05/29/2018 10.3 06/25/2016 7.0 SPIROMETRY: Reviewed in [facility] SPIROMETRY BASELINE ONLY ([id number]) - ordered on 03/26/23 No textual results for order. ID: [id number] Name: JAY BARBER Race: White Ht: 62.01 in Wt: 89.29 lbs Age: 27 Gender: Male : 1995 Dx: Cystic Fibrosis - Unspecified. May include CFTR disorder. Smoking Hx: Non-smoker Doctor: SHE PETE Test Date: 06/04/2023 Site: [facility] [email or web address]: Kaylen Daigle PRE-BRONCH POST-BRONCH Pre LLN Pred ULN %Pred Post %Pred %Chg SPIROMETRY FVC (L) 2.77 2.85 3.66 4.48 75 FEV1 (L) 0.92 2.44 3.14 3.80 29 FEV1/FVC 0.33 0.75 0.86 0.95 38 PEF L/s (L/sec) 3.86 6.74 8.56 10.37 45 FEF50 (L/sec) 0.32 2.01 4.14 6.26 7 FIF50 (L/sec) 2.95 FEF50/FIF50 0.11 90-100 FIVC (L) 2.65 HIJ12-11 (L/sec) 0.28 2.32 3.73 5.47 7 Time (sec) 14.66 FET PEF (sec) 0.04 MACIEL (L) 0.02 Vol Extrap % (%) 1 SPIROMETRY BASELINE ONLY ([id number]) - ordered on 03/19/23 No textual results for order. ID: [id number] Name: JAY BARBER Race: White Ht: 62.01 in Wt: 90.39 lbs Age: 27 Gender: Male : 1995 Dx: Cystic fibrosis_ Smoking Hx: Non-smoker Doctor: SALLY SCHNEIDER Test Date: 03/19/2023 Site: [facility] Medical: Kaylen Daigle PRE-BRONCH POST-BRONCH Pre LLN Pred ULN %Pred Post %Pred %Chg SPIROMETRY FVC (L) 2.39 3.28 4.07 4.87 58 FEV1 (L) 0.80 2.75 3.44 4.11 23 FEV1/FVC 0.34 0.73 0.84 0.94 39 PEF L/s (L/sec) 3.54 6.74 8.55 10.37 41 FEF50 (L/sec) 0.28 2.02 4.15 6.27 6 FIF50 (L/sec) 2.97 FEF50/FIF50 0.10 90-100 FIVC (L) 2.38 MAG16-66 (L/sec) 0.24 2.33 3.74 5.48 6 Time (sec) 14.38 FET PEF (sec) 0.04 MACIEL (L) 0.02 Vol Extrap % (%) 1 SPIROMETRY BASELINE ONLY ([id number]) - ordered on 03/05/23 No textual results for order. ID: [id number] Name: JAY BARBER Race: White Ht: 62.01 in Wt: 86.86 lbs Age: 27 Gender: Male : 1995 Dx: Cystic Fibrosis - Unspecified. May include CFTR disorder. Smoking Hx: Non-smoker Doctor: SHE PETE Test Date: 03/05/2023 Site: [facility] Medical: Kaylen Daigle PRE-BRONCH POST-BRONCH Pre LLN Pred ULN %Pred Post %Pred %Chg SPIROMETRY FVC (L) 2.43 3.28 4.07 4.87 59 FEV1 (L) 0.86 2.75 3.44 4.11 24 FEV1/FVC 0.35 0.73 0.85 0.94 41 PEF L/s (L/sec) 3.95 6.74 8.55 10.37 46 FEF50 (L/sec) 0.33 2.02 4.15 6.27 8 FIF50 (L/sec) 3.13 FEF50/FIF50 0.11 90-100 FIVC (L) 2.14 YCQ07-07 (L/sec) 0.25 2.33 3.74 5.48 6 Time (sec) 14.16 FET PEF (sec) 0.04 MACIEL (L) 0.02 Vol Extrap % (%) 1 SPIROMETRY BASELINE ONLY ([id number]) - ordered on 12/04/22 ID: [id number] Name: JAY BARBER Race: White Ht: 62.01 in Wt: 89.51 lbs Age: 27 Gender: Male : 1995 Dx: Cystic fibrosis_ Smoking Hx: Non-smoker Doctor: SHE PETE Test Date: 12/04/2022 Site: [facility] Tech: Kaylen Daigle PRE-BRONCH POST-BRONCH Pre LLN Pred ULN %Pred Post %Pred %Chg SPIROMETRY FVC (L) 2.16 3.29 4.08 4.88 52 FEV1 (L) 0.75 2.75 3.44 4.11 21 FEV1/FVC 0.35 0.73 0.85 0.94 40 PEF L/s (L/sec) 3.59 6.73 8.55 10.37 41 FEF50 (L/sec) 0.24 2.03 4.16 6.28 5 FIF50 (L/sec) 2.45 FEF50/FIF50 0.10 90-100 FIVC (L) 2.04 XUP11-98 (L/sec) 0.20 2.34 3.75 5.49 5 Time (sec) 14.92 FET PEF (sec) 0.04 MACIEL (L) 0.02 Vol Extrap % (%) 1 Comments: ATS/ERS acceptability and repeatability standards for spirometry met. //KS SPIROMETRY BASELINE ONLY ([id number]) - ordered on 11/20/22 PRE-BRONCH POST-BRONCH Pred LLN ULN Actual %Pred Actual %Chng SPIROMETRY FVC (L) 4.08 3.29 4.88 2.34 57 FEV1 (L) 3.44 2.75 4.11 0.82 23 FEV1/FVC 0.85 0.73 0.94 0.35 41 FEF25 (L/sec) 0.54 FEF50 (L/sec) 4.16 2.03 6.28 0.27 6 FEF75 (L/sec) 1.51 0.80 2.67 0.10 6 BTH67-52 (L/sec) 3.75 2.34 5.50 0.22 5 PEF L/s (L/sec) 8.55 6.73 10.37 3.81 44 FIVC (L) 2.25 FIF50 (L/sec) 2.88 PIF (L/sec) 3.14 Time (sec) 14.45 MACIEL (L) 0.02 FET PEF (sec) 0.04 SPIROMETRY BASELINE ONLY ([id number]) - ordered on 11/05/22 PRE-BRONCH POST-BRONCH Pred LLN ULN Actual %Pred Actual %Chng SPIROMETRY FVC (L) 4.08 3.29 4.88 1.72 42 FEV1 (L) 3.44 2.75 4.11 0.62 17 FEV1/FVC 0.85 0.73 0.94 0.36 42 FEF25 (L/sec) 0.42 FEF50 (L/sec) 4.16 2.04 6.28 0.22 5 FEF75 (L/sec) 1.51 0.80 2.68 0.10 6 RVI83-43 (L/sec) 3.75 2.34 5.50 0.17 4 PEF L/s (L/sec) 8.55 6.73 10.37 2.68 31 FIVC (L) 1.30 FIF50 (L/sec) 2.06 PIF (L/sec) 2.06 Time (sec) 13.10 MACIEL (L) 0.03 FET PEF (sec) 0.07 MICROBIOLOGY: Reviewed MICROBIOLOGY SNAPSHOT Written and verbal health teaching given to patient, patient verbalizes understanding and agrees with treatment plan. Electronically Signed: Jean Pierre Kilgore MD, FRANCI, FACP [facility] Adult Cystic Fibrosis and Bronchiectasis Center Respiratory [place] [facility] Adult CF Patients [phone]. Adult patients use option #2 Bronchiectasis (Non-CF) Patients [phone] Surgical Nurse Practitioner: Nell Lozano [phone] Email: [email or web address] Office: [phone] June 04, 2023 MICROBIOLOGY: Reviewed MICROBIOLOGY SNAPSHOT 03/05/2023 Culture Few Burkholderia cepacia complex Abnormal Many normal respiratory vicky Abnormal No Pseudomonas aeruginosa isolated. No Staphylococcus aureus isolated. Hx MRSA within the last year Electronically Signed: Jean Pierre Kilgore MD, FRANCI, FACP [facility] Adult Cystic Fibrosis and Bronchiectasis Center Respiratory [place] [facility] Adult CF Patients [phone]. Adult patients use option #2 Bronchiectasis (Non-CF) Patients [phone] Surgical Nurse Practitioner: Nell Lozano [phone] Email: [email or web address] Office: [phone] March 05, 2023 documented in this encounterSumma Health Wadsworth [facility]07-05-2023 History of Present illness Narrative* Kaylen Solomon - 06/04/2023 3:36 PM EDT PULM FUNCTION SMARTBLOCK: Provider: Jean Pierre Kilgore MD Spirometry: 1 documented in this encounterSumma Health Wadsworth [facility]07-03-2023 Miscellaneous Notes* Telephone Encounter - Zaida Santos RN - 06/02/2023 4:12 PM EDT Called patient regarding abdominal xray results. Patient states he had not been taking Miralax thispast week as he should. Educated patient to start taking Miralax again as he has done previously (2to 3 times a day). No further questions/concerns from patient at this time. 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 05/19 Fernando called him to /[facility] improving Other issues: Plan for visit: culture documented in this encounterSumma Health Wadsworth - [facility] Center06-28-2023 Miscellaneous Notes* Telephone Encounter - Daniel Goel - 05/28/2023 11:46 AM EDT Patient called requesting a follow-up appointment with Dr. Pete or Dr. Kilgore. Admin has sent a message to schedulers to contact patient for an appointment. [phone] documented in this encounterSumma Health Wadsworth - [facility]itt[facility] Center06-19-2023 Miscellaneous Notes* Telephone Encounter - Fernando Zhang [...] reassess Fernando Zhang RD documented in this encounterSumma Health Wadsworth - [facility] Center05-08-2023 Instructions* Patient Instructions* Stephie Ramirez APRN.ARIAS - [...] an additional 3 Units. documented in this encounterSumma Health Wadsworth - [facility]ittman [facility] Center05-08-2023 History of Present illness Narrative* Stephie Ramirez [...] results in care everywhere, 01/2020: labs in [facility], 07/2020; Alkaline Phosphatase 725 (45-117), ALT 77 (16-61), AST 163 (15-37), 12/2020: results in care everywhere., 03/2021: results In care everywhere, 12/2021: Alkaline Phosphatase 918 (38-113), bone percent 13.9%, liver percent 86.1 , 12/2022: liver function monitored by CF providers, 03/2023: in [facility] Dilated Eye Exam: Patient educated to have ophthalmology visits at least once a year. 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 Blood-Glucose Meter,Continuous (DEXCOM G7 SHIFT SUPERVISOR RN) [facility] [place] For monitoring sugars Blood-Glucose Sensor (DEXCOM G7 SENSOR) jean-paul One sensor every 10 days insulin lispro (HUMALOG KWIKPEN INSULIN) 100 unit/mL Dose varies units with meals and sliding scale, using about 30 total units a day Insulin Mabank, Disposable, (BD ULTRA-FINE YARON PEN NEEDLE) 32 gauge x 5/32 5x/day glucagon (BAQSIMI) 3 mg/actuation nasal spray Use 1 Montour in the nose as needed. May repeat [...] tablet by mouth twice daily with meals. wxcgxftrtbu-dqdpzudrxs-rclonkqgz (TRIKAFTA) 100-50-75 mg(d) /150 mg (n) tablet [...] changes. Stephie Ramirez APRN.ARIAS documented in this encounterSumma Health Wadsworth - [facility]05-08-2023 History of Present illness Narrative* Stephie Ramirez [...] results in care everywhere, 01/2020: labs in [facility], 07/2020; Alkaline Phosphatase 725 (45-117), ALT 77 (16-61), AST 163 (15-37), 12/2020: results in care everywhere., 03/2021: results In care everywhere, 12/2021: Alkaline Phosphatase 918 (38-113), bone percent 13.9%, liver percent 86.1 , 12/2022: liver function monitored by CF providers, 03/2023: in [facility] Dilated Eye Exam: Patient educated to have ophthalmology visits at least once a year. 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 08/2013: New patient visit for Cystic Fibrosis related Diabetes Previous diabetes related labs from [facility] and [facility]-everywhere systems reviewed prior to today's office visit. [...] related to cystic fibrosis (HCC) Liver disease alf (current) use of insulin (HCC) Transfusion history [...] Puff as instructed twice daily. Blood-Glucose Meter,Continuous (DEXAudiolife G7 SHIFT SUPERVISOR RN) [facility] [place] For monitoring sugars Blood-Glucose Sensor (DEXCOM G7 SENSOR) jean-paul One sensor every 10 days insulin lispro (HUMALOG KWIKPEN INSULIN) 100 unit/mL Dose varies units with meals and sliding scale, using about 30 total units a day Insulin Mabank, Disposable, (BD ULTRA-FINE YARON PEN NEEDLE) 32 gauge x 5/32 5x/day glucagon (BAQSIMI) 3 mg/actuation nasal spray Use 1 Montour in the nose as needed. May repeat [...] tablet by mouth twice daily with meals. domymsdkhmv-htnbucplwk-uvvewkcci (TRIKAFTA) 100-50-75 mg(d) /150 mg (n) tablet [...] this visit. Physical Exam documented in this [facility]05-02-2023 Nurse Note* Sissy Calhoun RN - 04/01/2023 3:07 PM EDT PICC line removed. Flushed with 10ml NS prior 41cm intact. Pt states no complaints at this time. documented in this [facility]04-28-2023 Nurse Note* Peewee Vela RN - 03/28/2023 4:31 PM EDT Stop copat, picc line removal ordered by pulm service. Orders relayed to [facility]. Peewee Vela RN documented in this [facility]04-26-2023 History of Present illness Narrative* She Pete, [...] how he feels next week --> [facility] - [phone] - left upper extremity PICC intact, skin [...] ---Referral to ENT for surgical eval. Appt [phone]. Severe protein calorie malnutrition - continue ensures - to see Fernando today Prior Invasive Pulmonary Aspergillus infection/Trichosporonosis - treated with voriconazole by ID hr business partner consultant Dr. Burke France in 2020 for [...] done ---Following with Dr. 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 vawxhftsfjx-uidxmiplxn-tvebqttuy (TRIKAFTA) 100-50-75 mg(d) /150 mg (n) tablet [...] (BAQSIMI) 3 mg/actuation nasal spray Use 1 Montour in the nose as needed. May repeat [...] recent EKG LAST LAB RESULTS: ---Reviewed in [facility] CBC with diff: WBC 6.65 03/24/2023 RBC 4.18 03/24/2023 Hemoglobin 12.9 03/24/2023 Hematocrit 38.6 03/24/2023 MCV 92.3 03/24/2023 MCH 30.9 03/24/2023 MCHC 33.4 03/24/2023 RDW-CV 12.7 03/24/2023 Platelet Count 244 03/24/2023 MPV 10.1 03/24/2023 Neutrophils % 56.6 03/24/2023 Lymph% 24.5 03/24/2023 Mccone% 7.4 03/24/2023 Eosin% 16.6 11/26/2022 Baso% 1.1 03/24/2023 Abs Neut (Segs + Bands) 3.77 03/24/2023 Abs Mccone 0.49 03/24/2023 Abs Eosin 0.66 03/24/2023 Abs [...] which included preparing to see the patient, gwwk-cr-dnrg patient care, completing clinical documentation, obtaining and/or reviewing separately obtained history, performing a medically appropriate examination, ordering medications, tests, or procedures, communicating with other HCPs (not separately reported), and care coordination (not separately reported). Electronically Signed: She Pete DO March 19, 2023 documented in this encounterSumma Health Wadsworth - [facility]itt[facility] Center04-20-2023 Nurse Note* Lou Westbrook RN - 03/20/2023 2:53 PM EDT Order received from Dr Michel to extend COPAT until 03/28. Call placed to [facility] to update on extension. Verbal given to Sissy. documented in this encounterSumma Health Wadsworth - [facility] Center04-20-2023 Miscellaneous Notes* Telephone Encounter - Anabel Michel [...] of relapse in his symptoms. His CF wireless development manager, Dr. Pete, would like to extend his Copat to 03/28. I relayed that I thought this was reasonable. Since the CF team is following so closely, I told himwe could cancel the Friday appointment. Plan: I will extend his copat to 03/28. Anabel Michel MD Infectious Disease documented in this encounterSumma Health Wadsworth - [facility] Center04-20-2023 Miscellaneous Notes* Telephone Encounter - Daniel Goel - 03/20/2023 1:40 PM EDT Received call from Demetrius with [facility] looking for clarification. Would it be appropriate to send an order for pre medication IV Benadryl to take before Vancomycin? Okay to leave a message if appropriate [phone] documented in this encounterSumma Health Wadsworth - [facility] Center04-20-2023 History of Present illness Narrative* Fernando Zhang, [...] BID CFRD: Present, follows with endo at [facility] CGM: Dexcom G7 Insulin regimen: Basaglar 8 units HS and humalog with meals Oral diabetic agents: none DEXA: Needs Low bone density on [place] DEXA in 2019 GI Symptoms: Reports no [...] kg (actual body weight) Estimated Calorie Needs: 9624-0358 (40-50 kcal/kg) Estimated Protein Needs: 62-82 (1.5-2.0 g/kg IBW) Estimated Fluid Needs: 6820-5634 (1mL/kcal) Activity: Activities of Daily Living: Active [...] Barber DATE: 03/20/2023 TIME: 12:13 PM PAGER: [phone] documented in this encounterSumma Health Wadsworth - [facility] Center04-19-2023 History of Present illness Narrative* Kaylen Solomon [...] X 5 minutes Microwave X 5 minutes Freight Trucker 158 degrees X 30 minutes Electric steam sterilizer (baby bottle sterilizer) Cold method: Soak in 70% isopropyl alcohol X 5 minutes, rinse with sterile water Soak in 3% hydrogen peroxide X 30 minutes, rinse with sterile water Nebulizer Care at Home document Replacment supply schedule and provider: CPAP/BiPAP DME 6. EXERCISE/STRETCHING: Patient reports doing the following: Type/Frequency/Duration: No regular exercise, pt does work [employer]. Recommendations include: 30 minutes, 3-5 X weekly and a goal of 150 minutes/week 7. EDUCATION/OTHER: ZephyRX: 8. SUMMARY: Pt starting using Duoneb Friday due to illness. Pt encouraged to get regular exercise 3-5 time per week. documented in this encounterSumma Health Wadsworth - [facility] Center04-17-2023 History of Present illness Narrative* She Pete, DO - 03/17/2023 9:55 AM EDT CF Pre-Clinic Checklist PRE-TRANSPLANT Last CF clinic visit date: 03/05/2023 Dr. Kilgore Microbiology: MRSA B Cepacia complex (vietnamiensis) Pseudomonas Mutations: [id number] & [id number]>Q Other medical complications: ---Advanced stage [...] ready for transplant referral? documented in this encounterSumma Health Wadsworth - [facility] Center04-06-2023 Miscellaneous Notes* Telephone Encounter - PRABHA Arriaga [...] location, bed, etc. Admin transferred to the title specialist who took ownership of his admission. documented in this encounterSumma Health Wadsworth - [facility]itt[facility] Center04-06-2023 Miscellaneous Notes* Telephone Encounter - Alex Pinon [...] current clean out scheduled this weekend at [facility]. I gave him my email address and work number so he could contact me when ready. He was amenable to this plan. He expressed his appreciation for the call and knowing that such resources were more easily accessible than he had thought. Alex Pinon MD March 06, 2023 1:22 PM documented in this encounterSumma Health Wadsworth [facility]04-05-2023 History of Present illness Narrative* Jean Pierre [...] ---Referral to ENT for surgical eval. Appt [phone]. CYSTIC FIBROSIS RELATED DIABETES ---The standard medical therapy for CFRD is subcutaneous insulin (oral diabetic agents should not be used); ---Patient currently on insulin therapy. ---Self monitored blood glucose 3 times per day ---Most recent hgA1c noted. ---Following with Dr. Francis Ramirez at [facility], last seen 12/20/2022 Severe protein calorie malnutrition - continue ensures - will have fernando follow-up with him Prior Invasive Pulmonary Aspergillus infection/Trichosporonosis - treated with voriconazole by ID hr business partner consultant Dr. 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 May repeat [...] Take 10 mg by mouth once daily. dggbmjprjvx-brrehtprqj-tzwamutvj (TRIKAFTA) 100-50-75 mg(d) /150 mg (n) tablet [...] recent labs LAST LAB RESULTS: ---Reviewed in [facility] Latest Reference Range & Units 07/17/22 [...] Neutrophils % 65.6 02/26/2023 Lymph% 21.0 02/26/2023 Mccone% 7.8 02/26/2023 Eosin% 16.6 11/26/2022 Baso% 1.5 02/26/2023 Abs Neut (Segs + Bands) 3.03 02/26/2023 Abs Mccone 0.36 02/26/2023 Abs Eosin 0.17 02/26/2023 Abs [...] 05/29/2018 10.3 06/25/2016 7.0 SPIROMETRY: [facility] ID: [id number] Name: JAY BARBER Race: White Ht: 62.01 in Wt: 86.86 lbs Age: 27 Gender: Male : 1995 Dx: Cystic Fibrosis - Unspecified. May include CFTR disorder. Smoking Hx: Non-smoker Doctor: SHE PETE Test Date: 03/05/2023 Site: [facility]: Kaylen Daigle PRE-BRONCH POST-BRONCH Pre LLN Pred ULN %Pred Post %Pred %Chg SPIROMETRY FVC (L) 2.43 3.28 4.07 4.87 59 FEV1 (L) 0.86 2.75 3.44 4.11 24 FEV1/FVC 0.35 0.73 0.85 0.94 41 PEF L/s (L/sec) 3.95 6.74 8.55 10.37 46 FEF50 (L/sec) 0.33 2.02 4.15 6.27 8 FIF50 (L/sec) 3.13 FEF50/FIF50 0.11 90-100 FIVC (L) 2.14 KKY32-11 (L/sec) 0.25 2.33 3.74 5.48 6 Time (sec) 14.16 FET PEF (sec) 0.04 MACIEL (L) 0.02 Vol Extrap % (%) 1 SPIROMETRY BASELINE ONLY ([id number]) - ordered on 12/04/22 ID: [id number] Name: JAY BARBER Race: White Ht: 62.01 in Wt: 89.51 lbs Age: 27 Gender: Male : 1995 Dx: Cystic fibrosis_ Smoking Hx: Non-smoker Doctor: SHE PETE Test Date: 12/04/2022 Site: [facility] Tech: Kaylen Daigle PRE-BRONCH POST-BRONCH Pre LLN Pred ULN %Pred Post %Pred %Chg SPIROMETRY FVC (L) 2.16 3.29 4.08 4.88 52 FEV1 (L) 0.75 2.75 3.44 4.11 21 FEV1/FVC 0.35 0.73 0.85 0.94 40 PEF L/s (L/sec) 3.59 6.73 8.55 10.37 41 FEF50 (L/sec) 0.24 2.03 4.16 6.28 5 FIF50 (L/sec) 2.45 FEF50/FIF50 0.10 90-100 FIVC (L) 2.04 XAK94-90 (L/sec) 0.20 2.34 3.75 5.49 5 Time (sec) 14.92 FET PEF (sec) 0.04 MACIEL (L) 0.02 Vol Extrap % (%) 1 Comments: ATS/ERS acceptability and repeatability standards for spirometry met. //KS SPIROMETRY BASELINE ONLY ([id number]) - ordered on 11/20/22 PRE-BRONCH POST-BRONCH Pred LLN ULN Actual %Pred Actual %Chng SPIROMETRY FVC (L) 4.08 3.29 4.88 2.34 57 FEV1 (L) 3.44 2.75 4.11 0.82 23 FEV1/FVC 0.85 0.73 0.94 0.35 41 FEF25 (L/sec) 0.54 FEF50 (L/sec) 4.16 2.03 6.28 0.27 6 FEF75 (L/sec) 1.51 0.80 2.67 0.10 6 VHY32-99 (L/sec) 3.75 2.34 5.50 0.22 5 PEF L/s (L/sec) 8.55 6.73 10.37 3.81 44 FIVC (L) 2.25 FIF50 (L/sec) 2.88 PIF (L/sec) 3.14 Time (sec) 14.45 MACIEL (L) 0.02 FET PEF (sec) 0.04 SPIROMETRY BASELINE ONLY ([id number]) - ordered on 11/05/22 PRE-BRONCH POST-BRONCH Pred LLN ULN Actual %Pred Actual %Chng SPIROMETRY FVC (L) 4.08 3.29 4.88 1.72 42 FEV1 (L) 3.44 2.75 4.11 0.62 17 FEV1/FVC 0.85 0.73 0.94 0.36 42 FEF25 (L/sec) 0.42 FEF50 (L/sec) 4.16 2.04 6.28 0.22 5 FEF75 (L/sec) 1.51 0.80 2.68 0.10 6 RBQ32-66 (L/sec) 3.75 2.34 5.50 0.17 4 PEF L/s (L/sec) 8.55 6.73 10.37 2.68 31 FIVC (L) 1.30 FIF50 (L/sec) 2.06 PIF (L/sec) 2.06 Time (sec) 13.10 MACIEL (L) 0.03 FET PEF (sec) 0.07 MICROBIOLOGY: Reviewed MICROBIOLOGY SNAPSHOT 11/05/2022 Moderate Methicillin resistant Staphylococcus aureus Abnormal [place] PBP2a SA Culture [place]ter Test PBP2a was detected by an immunochromatographic assay. PBP2a is encoded for by the mecA gene. This isolate is methicillin-resistant. Few Burkholderia cepacia complex Abnormal No Pseudomonas aeruginosa isolated. CF Pulmonary Exacerbation (MRSA, B Cepacia complex- vietnamiensis), moderate Failed PO Bactrim DS PO BID, Levofloxacin 750mg daily (took for 5 days) Continue JOAO [facility] Plan for inpatient admission with PICC Lung [...] Signed: Jean Pierre Kilgore MD, FRANCI, FACP [facility] Adult Cystic Fibrosis and Bronchiectasis Center Respiratory [place] [facility] Adult CF Patients [phone]. Adult patients use option #2 Bronchiectasis (Non-CF) Patients [phone] Surgical Nurse Practitioner: Nell Lozano [phone] Email: [email or web address] Office: [phone] March 05, 2023 documented in this encounterSumma Health Wadsworth - [facility] Center04-05-2023 History of Present illness Narrative* Kaylen Solomon - 03/05/2023 3:53 PM EDT PULM FUNCTION SMARTBLOCK: Provider: Jean Pierre Kilgore MD Spirometry: 1 documented in this encounterSumma Health Wadsworth - [facility]03-29-2023 History of Present illness Narrative* Jean Pierre [...] ---Referral to ENT for surgical eval. Appt [phone]. CYSTIC FIBROSIS RELATED DIABETES ---The standard medical therapy for CFRD is subcutaneous insulin (oral diabetic agents should not be used); ---Patient currently on insulin therapy. ---Self monitored blood glucose 3 times per day ---Most recent hgA1c noted. ---Following with Dr. 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 Burke France in 2019 for [...] of yet Prior exacerbation treatments per [facility] Procedures & IV/Oral Course: -12/15/95-12/23/95 Hospitalized [...] po X 2 weeks -11/13/2010 Hospital/surgery at [facility]: Splenorenal shunt --- -03/13/2011 Home treatment Bactrim [...] COVID-19 original vaccine, age 12+ yr, monovalent ([employer] - PURPLE TOP) 12/24/2020 01/21/2021 12/05/2021 DTP [...] related to cystic fibrosis (HCC) Liver disease alf (current) use of insulin (HCC) Transfusion history [...] about 30 total units a day Insulin Mabank, Disposable, (BD ULTRA-FINE YARON PEN NEEDLE) 32 gauge x 5/32 5x/day glucagon (BAQSIMI) 3 mg/actuation nasal spray Use 1 Montour in the nose as needed. May repeat [...] tablet by mouth twice daily with meals. druyizfdjeq-ucgbykjpuf-bmsairoay (TRIKAFTA) 100-50-75 mg(d) /150 mg (n) tablet [...] recent labs LAST LAB RESULTS: ---Reviewed in [facility] CBC with diff: WBC 10.30 12/03/2022 RBC 3.80 12/03/2022 Hemoglobin 11.9 12/03/2022 Hematocrit 34.0 12/03/2022 MCV 89.5 12/03/2022 MCH 31.3 12/03/2022 MCHC 35.0 12/03/2022 RDW-CV 13.9 12/03/2022 Platelet Count 214 12/03/2022 MPV 9.7 12/03/2022 Neutrophils % 39.5 12/03/2022 Lymph% 35.0 12/03/2022 Mccone% 9.5 12/03/2022 Eosin% 16.6 11/26/2022 Baso% 0.7 12/03/2022 Abs Neut (Segs + Bands) 4.08 12/03/2022 Abs Mccone 0.98 12/03/2022 Abs Eosin 1.54 12/03/2022 Abs [...] 05/29/2018 10.3 06/25/2016 7.0 SPIROMETRY: Reviewed in [facility] SPIROMETRY BASELINE ONLY ([id number]) - ordered on 12/04/22 ID: [id number] Name: JAY BARBER Race: White Ht: 62.01 in Wt: 89.51 lbs Age: 27 Gender: Male : 1995 Dx: Cystic fibrosis_ Smoking Hx: Non-smoker Doctor: SHE PETE Test Date: 12/04/2022 Site: [facility]: Kaylen Daigle PRE-BRONCH POST-BRONCH Pre LLN Pred ULN %Pred Post %Pred %Chg SPIROMETRY FVC (L) 2.16 3.29 4.08 4.88 52 FEV1 (L) 0.75 2.75 3.44 4.11 21 FEV1/FVC 0.35 0.73 0.85 0.94 40 PEF L/s (L/sec) 3.59 6.73 8.55 10.37 41 FEF50 (L/sec) 0.24 2.03 4.16 6.28 5 FIF50 (L/sec) 2.45 FEF50/FIF50 0.10 90-100 FIVC (L) 2.04 UXS59-10 (L/sec) 0.20 2.34 3.75 5.49 5 Time (sec) 14.92 FET PEF (sec) 0.04 MACIEL (L) 0.02 Vol Extrap % (%) 1 Comments: ATS/ERS acceptability and repeatability standards for spirometry met. //KS SPIROMETRY BASELINE ONLY ([id number]) - ordered on 11/20/22 PRE-BRONCH POST-BRONCH Pred LLN ULN Actual %Pred Actual %Chng SPIROMETRY FVC (L) 4.08 3.29 4.88 2.34 57 FEV1 (L) 3.44 2.75 4.11 0.82 23 FEV1/FVC 0.85 0.73 0.94 0.35 41 FEF25 (L/sec) 0.54 FEF50 (L/sec) 4.16 2.03 6.28 0.27 6 FEF75 (L/sec) 1.51 0.80 2.67 0.10 6 KCN93-83 (L/sec) 3.75 2.34 5.50 0.22 5 PEF L/s (L/sec) 8.55 6.73 10.37 3.81 44 FIVC (L) 2.25 FIF50 (L/sec) 2.88 PIF (L/sec) 3.14 Time (sec) 14.45 MACIEL (L) 0.02 FET PEF (sec) 0.04 SPIROMETRY BASELINE ONLY ([id number]) - ordered on 11/05/22 PRE-BRONCH POST-BRONCH Pred LLN ULN Actual %Pred Actual %Chng SPIROMETRY FVC (L) 4.08 3.29 4.88 1.72 42 FEV1 (L) 3.44 2.75 4.11 0.62 17 FEV1/FVC 0.85 0.73 0.94 0.36 42 FEF25 (L/sec) 0.42 FEF50 (L/sec) 4.16 2.04 6.28 0.22 5 FEF75 (L/sec) 1.51 0.80 2.68 0.10 6 QCB88-14 (L/sec) 3.75 2.34 5.50 0.17 4 PEF [...] No Call if symptoms worsen F/U in [place] next week with Dr. Kilgore Lung Function [...] RTC: [address] Kilgore at [place] with spirometry Jean Pierre Kilgore MD Written and verbal health teaching given to patient, patient verbalizes understanding and agrees with treatment plan. Electronically Signed: Dr Kilgore February 26, 2023 documented in this encounterSumma Health Wadsworth [facility]03-20-2023 Miscellaneous Notes* Telephone Encounter - Daniel Goel - 02/17/2023 11:34 AM EDT Patient called office regarding a follow-up appointment with Dr. Kilgore. Message has been sent to the schedulers to reach out to the patient with Dr. Kilgore first availableappointment. documented in this encounterSumma Health Wadsworth - [facility] Center02-13-2023 History of Present illness Narrative* She Pete, DO - 01/13/2023 11:44 AM EST CF Pre-Clinic Checklist PRE-TRANSPLANT Last CF clinic visit date: 12/04/[address] Kilgore Microbiology: MRSA B Cepacia complex (nova) Pseudomonas Mutations: [id number] & [id number]>Q Other medical complications: ---Advanced stage [...] - ?f/up with hepatology? documented in this encounterSumma Health Wadsworth - [facility] Center02-03-2023 Miscellaneous Notes* Telephone Encounter - [employer] Spec - 01/03/2023 9:25 AM EST authorization forms faxed to you as requested to [phone] * Telephone Encounter - [employer] Spec - 01/03/2023 8:11 AM EST Good morning, I received your message to call you regarding the authorizations for this patient. I have tried calling you a couple times, I understand you are with patients. Please call me back at [phone] at your convenience so I can answer any questions you may have. Thanks. * Telephone Encounter - [employer] Spec - 12/30/2022 12:36 PM EST Patient's [employer] insurance requires a prior authorization for their [...] form. I can either e-mail to a [employer] e-mail address or send via fax. Once completed, simply return the signed form to Samra Lino at fax [phone] or via [facility] e-mail at [email or web address] . Thank you for your prompt attention to this matter. Samra HahnTurnStar Insurance Spec documented in this encounterSumma Health Wadsworth - [facility] Center01-24-2023 Miscellaneous Notes* Telephone Encounter - Samra HahnTurnStar Insurance Spec - 12/24/2022 8:14 AM EST Good morning, I am looking for the status of the signed [facility] authorization form for patients copat extension [...] in advance. * Telephone Encounter - Samra ThorntonUSEREADY Insurance Spec - 11/26/2022 2:14 PM EST Looks like there is copat extension on the iv atbs vancomycin, meropenem, benadryl. We will need new signatures on authorization forms to request addtitional days of the iv medications. I will fax the forms to you at [phone]. Please sign all 3 forms and fax them back to me at [phone] so I can complete our authorization process. Thanks in advance * Telephone Encounter - Samra Edmonds Insurance Spec - 11/12/2022 1:04 PM EST emailed as requested * Telephone Encounter - Samra Edmonds Insurance Spec - 11/12/2022 9:56 AM EST Patient's [employer] insurance requires a prior authorization for their Vancomycin 750mg IV every 12 hours ,Meropenem 1.5gm IV every 8 hours ,Benadryl 50mg [id number] I have completed the necessary prior authorization form , all that is required is review and signature by prescribing provider. Please advise which method will be the easiest / fastest way for the office to receive and process the prior authorization form. I can either e-mail to a [employer] e-mail address or send via fax. Once completed, simply return the signed form to Samra Lino at fax [phone] or via [facility] e-mail at . Thank you for your prompt attention to this matter. Samra Hahna Insurance Spec documented in this encounterSumma Health Wadsworth - [facility] Center01-20-2023 Instructions* Patient Instructions* Stephie Ramirez APRN.ARIAS - 12/20/2022 1:31 PM EST Look into omnipod 5 and Tslim control IQ documented in this encounterSumma Health Wadsworth - [facility]ittman [facility] Center01-20-2023 History of Present illness Narrative* Stephie Ramirez [...] results in care everywhere, 01/2020: labs in [facility], 07/2020; Alkaline Phosphatase 725 (45-117), ALT [...] related Diabetes Previous diabetes related labs from [facility] reviewed prior to today's office visit. 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 gsgcscniucs-xfshlsqtjd-kgpcuohys (TRIKAFTA) 100-50-75 mg(d) /150 mg (n) tablet [...] about 30 total units a day Insulin Mabank, Disposable, (BD ULTRA-FINE YARON PEN NEEDLE) 32 gauge x 5/32 5x/day glucagon (BAQSIMI) 3 mg/actuation nasal spray Use 1 Montour in the nose as needed. May repeat [...] changes. Stephie Ramirez APRN.ARIAS documented in this encounterSumma Health Wadsworth - [facility] Center01-20-2023 History of Present illness Narrative* Stephie Ramirez [...] results in care everywhere, 01/2020: labs in [facility], 07/2020; Alkaline Phosphatase 725 (45-117), ALT [...] related Diabetes Previous diabetes related labs from [facility] reviewed prior to today's office visit. Any changes made at our last diabetes management visit were abstracted accordingly (if applicable). Today's Office Visit: Note: last Follow up was 12/2021, reviewed importance of routine, generally every 3 month Follow ups self monitoring blood glucose data: see dexcom report. Dexcom: through [facility] Diet: Very high in carbs per [...] related to cystic fibrosis (HCC) Liver disease alf (current) use of insulin (HCC) Transfusion history [...] tablet by mouth twice daily with meals. fnhilqmtrkh-qlvmlrdyql-fztvbzhwi (TRIKAFTA) 100-50-75 mg(d) /150 mg (n) tablet [...] about 40 total units a day Insulin Mabank, Disposable, (BD ULTRA-FINE YARON PEN NEEDLE) 32 gauge x 5/32 5x/day glucagon (GLUCAGON EMERGENCY KIT, HUMAN,) 1 mg injection use as directed if needed for SIGNIFICANT LOW BLOOD SUGAR EVENT CREON 36,000-114,000- 180,000 unit capsule Take 3 capsules by mouth. With every meal Objective There were no vitals taken for this visit. Physical Exam documented in this encounterSumma Health Wadsworth - [facility] Center01-18-2023 Miscellaneous Notes* Telephone Encounter - Nell Lozano - 12/18/2022 10:06 AM EST Medication: Trikafta Date Submitted: December 13, 2022 Prescribing Provider: Tamara Method of Submission: covermymeds Outcome: Approved 12/13/2022-12/12/2023 Outcome Date: December 14, 2022 Nell Lozano documented in this encounterSumma Health Wadsworth - [facility] Center01-06-2023 Miscellaneous Notes* Telephone Encounter - Corey Del Real - 12/06/2022 8:49 AM EST I called and spoke with Jay. The following appointment has been made for this patient: Date: 01/13/2023 Status: Scheduled Arrive By: 3:30 PM Time: 3:40 PM Length: 40 Visit Type: EST KIDNEY MED [[id number]] Copay: $0.00 Provider: Sanna Bowers APRN.CNP Department: KIDNEY MED [facility] Provider Title: Dept Ordering Physician: Department Address: [address] [facility] [id number] Corey Del Real ----- Message from Karlene [...] with nephrology Sadiq Soler documented in this encounterSumma Health Wadsworth - [facility] Center01-04-2023 Instructions* Patient Instructions* Jean Pierre Kilgore MD - 12/04/2022 5:09 PM EST Get labs tomorrow as ordered. Stop the IV fluids at night We'll get orders to [facility] to pull your PICC tomorrow Stop the minocycline Start the [place] once you receive it Let us know if you worsen Follow up with me in 3 weeks documented in this encounterSumma Health Wadsworth - [facility] Center01-04-2023 History of Present illness Narrative* Jean Pierre [...] requiring IV abx after being seen in [place] 11/05/22 with CFPEx(MRSA and B Cepacia) and influenza A requiring tamiflu. Was discharged on 11/11/22 with IV Vanc andIV Meropenem. Had PICC line placement on 11/07/2022. He was seen in [place] 11/20, where labs were increased to 2xweek, [...] ---Referral to ENT for surgical eval. Appt [phone]. CYSTIC FIBROSIS RELATED DIABETES ---The standard medical therapy for CFRD is subcutaneous insulin (oral diabetic agents should not be used); ---Patient currently on insulin therapy. ---Self monitored blood glucose 3 times per day ---Most recent hgA1c noted. ---Following with [facility] Francis Ramirez at [place] [facility] Severe protein calorie malnutrition - continue ensures - will have fernando follow-up with him Prior Invasive Pulmonary Aspergillus infection/Trichosporonosis - treated with voriconazole by ID hr business partner consultant Dr. Burke France in 2020 for [...] as of yet Prior exacerbation treatments per [facility] Procedures & IV/Oral Course: -12/15/95-12/23/95 Hospitalized [...] po X 2 weeks -11/13/2010 Hospital/surgery at [place]: Splenorenal shunt --- -03/13/2011 Home treatment Bactrim [...] COVID-19 original vaccine, age 12+ yr, monovalent ([employer] - PURPLE TOP) 12/24/2020 01/21/2021 12/05/2021 DTP [...] related to cystic fibrosis (HCC) Liver disease alf (current) use of insulin (HCC) Transfusion history [...] tablet by mouth twice daily with meals. bfnjzdtybdk-tbaslcbngv-edyoodshe (TRIKAFTA) 100-50-75 mg(d) /150 mg (n) tablet [...] about 40 total units a day Insulin Mabank, Disposable, (BD ULTRA-FINE YARON PEN NEEDLE) 32 [...] recent imaging LAST LAB RESULTS: ---Reviewed in [facility] CBC with diff: WBC 10.30 12/03/2022 RBC 3.80 12/03/2022 Hemoglobin 11.9 12/03/2022 Hematocrit 34.0 12/03/2022 MCV 89.5 12/03/2022 MCH 31.3 12/03/2022 MCHC 35.0 12/03/2022 RDW-CV 13.9 12/03/2022 Platelet Count 214 12/03/2022 MPV 9.7 12/03/2022 Neut% 39.5 12/03/2022 Lymph% 35.0 12/03/2022 Mccone% 9.5 12/03/2022 Eosin% 16.6 11/26/2022 Baso% 0.7 12/03/2022 Abs Neut (Segs + Bands) 4.08 12/03/2022 Abs Mccone 0.98 12/03/2022 Abs Eosin 1.54 12/03/2022 Abs [...] SPIROMETRY: Reviewed in EPIC SPIROMETRY BASELINE ONLY ([id number]) - ordered on 12/04/22 ID: [id number] Name: JAY BARBER Race: White Ht: 62.01 in Wt: 89.51 lbs Age: 27 Gender: Male : 1995 Dx: Cystic fibrosis_ Smoking Hx: Non-smoker Doctor: SHE PETE Test Date: 12/04/2022 Site: [facility] Tech: Kaylen Daigle PRE-BRONCH POST-BRONCH Pre LLN Pred ULN %Pred Post %Pred %Chg SPIROMETRY FVC (L) 2.16 3.29 4.08 4.88 52 FEV1 (L) 0.75 2.75 3.44 4.11 21 FEV1/FVC 0.35 0.73 0.85 0.94 40 PEF L/s (L/sec) 3.59 6.73 8.55 10.37 41 FEF50 (L/sec) 0.24 2.03 4.16 6.28 5 FIF50 (L/sec) 2.45 FEF50/FIF50 0.10 90-100 FIVC (L) 2.04 UJB15-86 (L/sec) 0.20 2.34 3.75 5.49 5 Time (sec) 14.92 FET PEF (sec) 0.04 MACIEL (L) 0.02 Vol Extrap % (%) 1 Comments: ATS/ERS acceptability and repeatability standards for spirometry met. //KS SPIROMETRY BASELINE ONLY ([id number]) - ordered on 11/20/22 PRE-BRONCH POST-BRONCH Pred LLN ULN Actual %Pred Actual %Chng SPIROMETRY FVC (L) 4.08 3.29 4.88 2.34 57 FEV1 (L) 3.44 2.75 4.11 0.82 23 FEV1/FVC 0.85 0.73 0.94 0.35 41 FEF25 (L/sec) 0.54 FEF50 (L/sec) 4.16 2.03 6.28 0.27 6 FEF75 (L/sec) 1.51 0.80 2.67 0.10 6 HGA43-08 (L/sec) 3.75 2.34 5.50 0.22 5 PEF L/s (L/sec) 8.55 6.73 10.37 3.81 44 FIVC (L) 2.25 FIF50 (L/sec) 2.88 PIF (L/sec) 3.14 Time (sec) 14.45 MACIEL (L) 0.02 FET PEF (sec) 0.04 SPIROMETRY BASELINE ONLY ([id number]) - ordered on 11/05/22 PRE-BRONCH POST-BRONCH Pred LLN ULN Actual %Pred Actual %Chng SPIROMETRY FVC (L) 4.08 3.29 4.88 1.72 42 FEV1 (L) 3.44 2.75 4.11 0.62 17 FEV1/FVC 0.85 0.73 0.94 0.36 42 FEF25 (L/sec) 0.42 FEF50 (L/sec) 4.16 2.04 6.28 0.22 5 FEF75 (L/sec) 1.51 0.80 2.68 0.10 6 ZBI85-30 (L/sec) 3.75 2.34 5.50 0.17 4 PEF [...] PICC Will need to send orders to [facility] F/U in [place] 12/[address] Kilgore Call if symptoms [...] weeks, December [address] Kilgore at [place] with spirometry Jean Pierre Kilgore MD documented in this encounterSumma Health Wadsworth - [facility]01-04-2023 History of Present illness Narrative* Kaylen Solomon - 12/04/2022 3:33 PM EST PULM FUNCTION SMARTBLOCK: Provider: She Pete DO Spirometry: 1 documented in this encounterSumma Health Wadsworth - Rittman [facility] Center12-30-2022 Miscellaneous Notes* Telephone Encounter - She Pete DO - 11/29/2022 10:44 AM EST Called and left voicemail for patient to get labs drawn again as the CMP did not get drawn. Placed new orders for standing labs as well to ensure that the lab can see them She Pete DO documented in this encounterSumma Health Wadsworth - Rittman [facility] Center12-30-2022 Nurse Note* Fern Schilling Asst I - 11/29/2022 9:55 AM EST Per orders of Dr.Holman koroma copat stop date of 11/29. Patient's to maintain picc. Repeat labs today and then next week. Message sent to Pharmacy. Fern Mac Adm Asst I documented in this encounterSumma Health Wadsworth - Ritt[facility] Center12-28-2022 Miscellaneous Notes* Telephone Encounter - Samra Edmonds [...] Spec - 11/19/2022 1:33 PM EST Patients [employer] insurance requires a prior authorization for their 0.9% Sodium Chloride 1000 ml Infuse 1000 ml daily for 4 days. I have faxed the authorization form to [phone] as per Nell. I have completed the necessary prior authorization form , all that is required is review and signature by prescribing provider along with notes stating need for the IVF . Once completed, simply return the signed form to Samra Lino at fax [phone] or via [employer] e-mail at . documented in this encounterSumma Health Wadsworth - [facility]itt[facility] Center12-27-2022 Miscellaneous Notes* Telephone Encounter - Nell Lozano - 11/26/2022 11:43 AM EST Images from the original note were not included. * Telephone Encounter - Nell Lozano - 11/26/2022 11:39 AM EST Images from the original note were not included. Outside labs have been uploaded through [employer]. There may be a delay before report appears in Epic. documented in this encounterSumma Health Wadsworth - [facility]ittman [facility] Center12-22-2022 Miscellaneous Notes* Telephone Encounter - Luiza Rodriges MD - 11/21/2022 1:06 PM EST CF team has already addressed this documented in this [facility]12-21-2022 Nurse Note* Fern Watts Adm Asst I - 11/20/2022 10:10 AM EST Per orders of extend copat until 11/29. Message sent to Pharmacy. Fern Watts Adm Asst I documented in this encounterSumma Health Wadsworth - [facility] Center12-21-2022 History of Present illness Narrative* Kaylen Pilo Solomon - 11/20/2022 8:15 AM EST PULM FUNCTION SMARTBLOCK: Provider: Sally Schneider APRN.ACID CLEANER Spirometry: 1 documented in this encounterSumma Health Wadsworth - [facility]ittman [facility] Center12-21-2022 History of Present illness Narrative* She Pete [...] monitoring is being done and -------Labs in [facility] - from 11/18/2022 - slight rise [...] ---Referral to ENT for surgical eval. Appt [phone]. CYSTIC FIBROSIS RELATED DIABETES ---The standard medical therapy for CFRD is subcutaneous insulin (oral diabetic agents should not be used); ---Patient currently on insulin therapy. ---Self monitored blood glucose 3 times per day ---Most recent hgA1c noted. ---Following with Dr. Francis Ramirez at [facility] Severe protein calorie malnutrition - continue ensures - has RD see on Friday when comes to [facility] Prior Invasive Pulmonary Aspergillus infection/Trichosporonosis - treated with voriconazole by ID hr business partner consultant Dr. Burke France in 2020 for [...] related to cystic fibrosis (HCC) Liver disease alf (current) use of insulin (HCC) Transfusion history [...] tablet by mouth twice daily with meals. blzxqiihxpm-hhvptdzidk-ggdzbqqmr (TRIKAFTA) 100-50-75 mg(d) /150 mg (n) tablet [...] about 40 total units a day Insulin Mabank, Disposable, (BD ULTRA-FINE YARON PEN NEEDLE) 32 [...] recent labs LAST LAB RESULTS: ---Reviewed in [facility] CBC with diff: WBC 8.4 08/06/2022 RBC 3.33 08/01/2022 Hemoglobin 11.5 08/06/2022 Hematocrit 34.3 08/06/2022 MCV 91.3 08/01/2022 MCH 31.2 08/01/2022 MCHC 34.2 08/01/2022 RDW-CV 13.2 08/01/2022 Platelet Count 422 08/06/2022 MPV 9.1 08/01/2022 Neut% 57.5 08/06/2022 Lymph% 9.8 07/29/2022 Mccone% 12.6 07/29/2022 Eosin% 7.9 08/06/2022 Baso% 0.4 07/29/2022 Abs Neut (Segs + Bands) 4.8 08/06/2022 Abs Mccone 1.28 07/29/2022 Abs Eosin 0.17 07/29/2022 Abs [...] which included preparing to see the patient, iqjl-al-gtwy patient care, completing clinical documentation, performing a medically appropriate examination, ordering medications, tests, or procedures, communicating with other HCPs (not separately reported), independently interpreting results (not separately reported), communicating results tothe patient/family/caregiver, and care coordination (not separately reported). Electronically Signed: She Pete DO November 20, 2022 documented in this encounterSumma Health Wadsworth [facility]itt[facility]12-19-2022 Miscellaneous Notes* Addendum Note - Miguelina Murray [...] there. Dr. Pete notified. Miguelina Murray RN Planning Specialist CF and Bronchiectasis Programs A110 * Telephone Encounter - Nell Loznao - 11/18/2022 12:41 PM EST Images from the original note were not included. Outside labs have been uploaded through [employer]. There may be a delay before report appears in Epic. documented in this encounterSumma Health Wadsworth - Rittman [facility] Center12-19-2022 History of Present illness Narrative* Miguelina Murray RN - 11/18/2022 9:12 AM ESTSummary: New patient referral Images from the original note were not included. 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, Trichosporonosis, Aspergillus Mutations: Delta [id number]+1G>A Other medical complications: ---Advanced stage lung disease [...] has declined Tx workup at this time CEYX/Phone Messages since last visit: ---Home care ---Orders for lab work and PICC dressing to [facility] Other issues: None Plan for visit: ---CF swab ---Hospital admission/IV follow up ---Needs SW and RT Miguelina Murray RN Planning Specialist CF and Bronchiectasis Programs A110 documented in this encounterSumma Health Wadsworth - [facility]ittman [facility] Center12-06-2022 History of Present illness Narrative* Sally Schneider APRN.ACID CLEANER - 11/05/2022 2:24 PM EST PULMONARY MEDICINE CYSTIC FIBROSIS PLAN OF CARE NOTE Please use the cystic fibrosis order set in [facility] to place the admission orders. The order [...] Hale is the CF Consult Physician. P. [phone] Sally Schneider CNP CF PIPE FITTER GAS PIPE. p. [phone] Reason for admission: CF Pulmonary Exacerbation Desired [...] not use subq heparin documented in this encounterSumma Health Wadsworth - Rittman [facility] Center12-05-2022 Miscellaneous Notes* Telephone Encounter - Nell Lozano [...] He is okay with coming up to [facility] for a PFT and an appointment with Sally to discuss starting iv abx and the possible need to start the abx in house before being discharged home with ivs. Patient is scheduled to come to [facility] tomorrow. * Telephone Encounter - PRABHA Pitt - 11/04/2022 2:22 PM EST Patient called requesting appointment with CF doctor. documented in this encounterSumma Health Wadsworth - Rittman Medical Center10-26-2022 Miscellaneous Notes* Telephone Encounter - Daniel Yu RN - 09/25/2022 1:42 PM EDT Pharmacy called requesting the following refill. Requested Prescriptions Pending Prescriptions Disp Refills vzcrxvpeyzr-eygxidpofd-bozgffcst (TRIKAFTA) 100-50-75 mg(d) /150 mg (n) tablet 84 Each 1 Sig: Take 2 tablets by mouth every 48 hours. Take 2 orange tablets on even number days. Then take 1tablet on Odd number days. Discard blue tablets. DO NOT crush, chew, or open. Patient Phone numbers: [phone] (home) Request is for script(s) to be escript to pharmacy. Daniel Yu RN documented in this encounterSumma Health Wadsworth - Rittman [facility] Center10-12-2022 History of Present illness Narrative* She Tamara, [...] issues with possible mood changes - complete [facility] paperwork - asked about transplant today - remains not interested at this time RTC: 01/22/2023 at [facility] with spirometry and then in the summer at [facility] for entire team She Pete, DO 09/11/2022 [...] ---Referral to ENT for surgical eval. Appt [phone]. CYSTIC FIBROSIS RELATED DIABETES ---The standard medical therapy for CFRD is subcutaneous insulin (oral diabetic agents should not be used); ---Patient currently on insulin therapy. ---Self monitored blood glucose 3 times per day ---Most recent hgA1c noted. ---Following with Dr. 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 Burke France in 2020 for [...] or hypoglycemic symptoms Prior exacerbation treatments per [facility] Procedures & IV/Oral Course: -12/15/95-12/23/95 Hospitalized [...] po X 2 weeks -11/13/2010 Hospital/surgery at [place]: Splenorenal shunt --- -03/13/2011 Home treatment Bactrim [...] related to cystic fibrosis (HCC) Liver disease alf (current) use of insulin (HCC) Transfusion history [...] Each three times daily.^Disp: 1 Each^Rfl: 0 rasvleifzme-rijxiwriel-carrbxqxe (TRIKAFTA) 100-50-75 mg(d) /150 mg (n) tablet^Take [...] units a day^Disp: 15 mL^Rfl: 6 Insulin Mabank, Disposable, (BD ULTRA-FINE YARON PEN NEEDLE) 32 [...] is abnormal). LAST LAB RESULTS: ---Reviewed in [facility] Glucose (mg/dL) Date Value 08/09/2022 201 12/08/2015 [...] 05/29/2018 10.3 06/25/2016 7.0 SPIROMETRY: Reviewed in [facility] [address], [place], [place] [address] Test Date: 2022-09-11 Pat Name: JAY BARBER Department: Room: Gender: Male 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: : 1995 Requested By: Order Number: [id number] Reading MD: Interpretive Statements The exhaled (FVC) spirometry maneuver meets ATS/ERS acceptability and repeatability standards. The inspired (FIVC) spirometry maneuver is less than the FVC maneuver. //KM IMPRESSION: Site: [facility] ID: [id number] Name: JAY BARBER Visit Date: 09/11/2022 Doctor: 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: Padma Campbell Age: 27 Date of : [...] FEF75 (L/sec) 1.51 0.80 2.68 0.14 9 UEP40-13 (L/sec) 3.76 2.35 5.50 0.29 7 PEF L/s (L/sec) 8.55 6.73 10.37 4.65 54 FIVC (L) 2.67 FIF50 (L/sec) 3.68 PIF (L/sec) 4.20 Time (sec) 15.39 MACIEL (L) 0.03 FET PEF (sec) 0.04 [facility] [address], [place], [place] [address] Test Date: 2022 Pat Name: JAY BARBER Department: Room: Gender: Male 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: : 1995 Requested By: Order Number: [id number] Reading MD: Interpretive Statements The exhaled (FVC) spirometry maneuver meets ATS/ERS acceptability and repeatability standards. The inspired (FIVC) spirometry maneuver is [less than] the FVC maneuver. //KS IMPRESSION: Site: [facility] ID: [id number] Name: JAY BARBER Visit Date: 2022 Doctor: 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: Kaylen Daigle Age: 27 Date of : [...] FEF75 (L/sec) 1.52 0.80 2.69 0.14 9 XQI83-12 (L/sec) 3.77 2.35 5.51 0.27 7 PEF [...] agrees with treatment plan. documented in this encounterSumma Health Wadsworth - Rittman [facility] Center10-12-2022 History of Present illness Narrative* Padma Campbell, SEWING MACHINE MAINTENANCE MECHANIC - 09/11/2022 8:46 AM EDT PULM FUNCTION SMARTBLOCK: Provider: She Pete DO Spirometry: 1 documented in this encounterSumma Health Wadsworth - Rittman [facility] Center09-28-2022 Miscellaneous Notes* Telephone Encounter - Nell Lozano [...] paxlovid vs trikafta. Call pharmacist directly at [phone] documented in this encounterSumma Health Wadsworth - Rittman Medical Center09-26-2022 Miscellaneous Notes* Telephone Encounter - Sally Schneider APRN.[facility] - 08/26/2022 10:09 AM EDT FACT SHEET FOR PATIENTS, PARENTS, AND CAREGIVERS EMERGENCY USE AUTHORIZATION (EUA) OF PAXLOVID FOR CORONAVIRUS DISEASE 2019 (COVID-19) You are being given this Fact Sheet because your healthcare provider believes it is necessary to provide you with PAXLOVID for the treatment of gyhy-ib-hwbpyftx coronavirus disease (COVID-19) caused by the SARS-CoV-2 [...] virus. COVID-19 illnesses have ranged from very frfw-it-oaiiou, including illness resulting in . While information [...] is an investigational medicine used to treat tqfy-rs-yduqiazj COVID-19 in adults and children [12 years [...] of using PAXLOVID to treat people with odhe-im-xotchyxu COVID-19. The FDA has authorized the emergency use of PAXLOVID for the treatment of pbbr-ch-hvilegwv COVID-19in adults and children [12 years of [...] the medicines you take, including prescription and tynt-uhx-xfsnfjk medicines, vitamins, and herbal supplements. Some medicines [...] (remdesivir) is FDA-approved for the treatment of acvs-tq-badbywdf COVID-19 in certain adults and children. Talk with your doctor to see if Veklury is appropriate for you. Like PAXLOVID, FDA may also allow for the emergency use of other medicines to treat people with COVID-19. Go to https://www.fda.gov/cuwsqapxi-lqyzkphkqrkg-mqcswyikmmh/pek-zbiqz-znvykxxjqs-and- policy-framework/slkfgjwlj-npa-zkvvmvysedfad for information on the emergency use of [...] if I am or ? There is noc technician treating women or mothers with PAXLOVID. For [...] to FDA MedWatch at www.fda.gov/medwatch or call 9-903-XTT7289 or you can reportside effects to [employer]. at the contact information provided below. Website Fax number Telephone number [employer] How should I store PAXLOVID? Store PAXLOVID [...] (EUA). The EUA is supported by a Siebel Developer of Health and Human Service (HHS) declaration that circumstances exist to justify the emergency use of drugs and biological productsduring the COVID-19 pandemic. PAXLOVID for the treatment of xxte-vw-qcfnnumm COVID-19 in adults and children [12 years [...] telephone number provided below. Website Telephone number www.UURIQ65novoRp.com (9-866-K72-BLNH) You can also go to www.Contacts+.Planbus or call for more information. Pfizer Distributed by [employer] [place] [address] LAB-1494-2.1 Revised: 15 February 2022 documented in this encounterKyle Ville [address]-26-2022 History of Present illness Narrative* Sally Schneider APRN.CNP - 08/26/2022 10:08 AM EDT Nirmatrelvir/Ritonavir (Paxlovid) Eligibility and Patient Discussion [facility] Formulary Restriction Criteria: Adult outpatients 18 years [...] Criteria above are met: documented in this encounterSumma Health Wadsworth - [facility]itt[facility] Center09-26-2022 Instructions* Patient Instructions* Sally Schneider APRN.CNP - 08/26/2022 10:08 AM EDT FACT SHEET FOR PATIENTS, PARENTS, AND CAREGIVERS EMERGENCY USE AUTHORIZATION (EUA) OF PAXLOVID FOR CORONAVIRUS DISEASE 2019 (COVID-19) You are being given this Fact Sheet because your healthcare provider believes it is necessary to provide you with PAXLOVID for the treatment of ioxs-fp-oypylelt coronavirus disease (COVID-19) caused by the SARS-CoV-2 [...] virus. COVID-19 illnesses have ranged from very lshr-vh-ktxgkp, including illness resulting in . While information [...] is an investigational medicine used to treat ackl-yk-ezycuopt COVID-19 in adults and children [12 years [...] of using PAXLOVID to treat people with uatp-uu-scgptlef COVID-19. The FDA has authorized the emergency use of PAXLOVID for the treatment of vreu-at-zquoazko COVID-19in adults and children [12 years of [...] the medicines you take, including prescription and zcrl-flv-vkishru medicines, vitamins, and herbal supplements. Some medicines [...] (remdesivir) is FDA-approved for the treatment of oxki-jk-irvwwvhb COVID-19 in certain adults and children. Talk with your doctor to see if Veklury is appropriate for you. Like PAXLOVID, FDA may also allow for the emergency use of other medicines to treat people with COVID-19. Go to https://www.fda.gov/msnidnzfv-xflwmnmqkhow-arvtxmhmwqc/mnp-fayme-wcjbxwpneu-and- policy-framework/pfdbcqieg-csm-qgqrswbslypyw for information on the emergency use of [...] if I am or ? There is noc technician treating women or mothers with PAXLOVID. For [...] Report side effects to FDA MedWatch at www.fda.gov/cube19 or call 3-737-NPX4813 or you can reportside effects to [employer]. at the contact information provided below. Website Fax number Telephone number www.[employer] How should I store PAXLOVID? Store PAXLOVID [...] (EUA). The EUA is supported by a Siebel Developer of Health and Human Service (HHS) declaration that circumstances exist to justify the emergency use of drugs and biological productsduring the COVID-19 pandemic. PAXLOVID for the treatment of rthv-td-xwphcsoo COVID-19 in adults and children [12 years [...] telephone number provided below. Website Telephone number wwwPolicyBazaar (4-523-W01-YFXM) You can also go to www.Munax or call for more information. Pfizer Distributed by [employer] [place] [address] LAB-1494-2.1 Revised: 15 February 2022 documented in this [facility]09-09-2022 Nurse Note* Fern Watts Adm Asst I - 08/09/2022 12:[address]Miranda misty mora. Picc line pulled in pulmonary clinic today. Message sent to Pharmacy. Fern Watts Adm Asst I documented in this [facility]09-09-2022 Instructions* Patient Instructions* Sally Schneider APRN.CNP - 08/09/2022 10:47 AM EDT STop IV abx today CMP drawn today will follow up results I will check on the inhaled cayston today Follow up with Dr Pete 09/11/22 at 9 am PFT 8:45 am at [facility] documented in this [facility]09-09-2022 History of Present illness Narrative* Nitin Oden RRT - 08/09/2022 10:17 AM EDT PEDS PULM: Provider: Sally Schneider APRN.CNP Spirometry: 1 System: [id number] documented in this encounterSumma Health Wadsworth - [facility]itt[facility] Center09-09-2022 History of Present illness Narrative* Sally Schneider, ADLAI.ACID CLEANER - 08/09/2022 9:44 AM EDT Images from [...] monitoring is being done and -------Labs in [facility] ---No significant changes in creatinine, LFTs, or [...] Dr Pete on FriSeptember 11 9:00 am [place] with [place] baseline 1. 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 Appt [phone]. CYSTIC FIBROSIS RELATED DIABETES ---The standard medical therapy for CFRD is subcutaneous insulin (oral diabetic agents should not be used); ---Patient currently on insulin therapy. ---Self monitored blood glucose 3 times per day ---Most recent hgA1c noted. ---Following with Dr. 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 Burke France in 2019 for 1 year Depression/Anxiety ---continues on celexa 20 mg PO daily ---will have him see SW with next visit HTN ---Coreg 6.25 mg (had hyperkalemia with SEVERINO-I) Proteinuria --- previously seen by Dr. Ahuja in nephrology Return to clinic in 5 weeks with spirometry baseline. 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) Transfusion history [...] Each three times daily.^Disp: 1 Each^Rfl: 0 ozhslcgdxyj-suhjdrmtxr-admpkvobk (TRIKAFTA) 100-50-75 mg(d) /150 mg (n) tablet^Take [...] units a day^Disp: 15 mL^Rfl: 6 Insulin Mabank, Disposable, (BD ULTRA-FINE YARON PEN NEEDLE) 32 [...] recent labs LAST LAB RESULTS: ---Reviewed in [facility] Glucose (mg/dL) Date Value 08/01/2022 281 12/08/2015 [...] 08/01/2022 Neut% 57.5 08/06/2022 Lymph% 9.8 07/29/2022 Mccone% 12.6 07/29/2022 Eosin% 7.9 08/06/2022 Baso% 0.4 07/29/2022 Abs Neut (Segs + Bands) 4.8 08/06/2022 Abs Mccone 1.28 07/29/2022 Abs Eosin 0.17 07/29/2022 Abs Baso 0.04 07/29/2022 SPIROMETRY: Reviewed in [facility] SPIROMETRY BASELINE ONLY ([id number]) - ordered on 07/17/22 No textual results for order. MICROBIOLOGY: Reviewed MICROBIOLOGY SNAPSHOT Written and verbal health teaching given to patient, patient verbalizes understanding and agrees with treatment plan. Electronically Signed: Sally Schneider CNP August 09, 2022 documented in this encounterSumma Health Wadsworth - Rittman [facility] Center08-25-2022 Miscellaneous Notes* Telephone Encounter - Forrest Hale [...] IMPRESSION: Findings in keeping with cystic fibrosis. Commercial Energy Rater: KATHIE Transcribe Date/Time: Jul 25 2022 10:42A [...] and soft tissues: Unremarkable. documented in this encounterSumma Health Wadsworth - Rittman [facility] Center08-25-2022 History of Present illness Narrative* RT Kushal(R) [...] 25, 2022 10:28 AM documented in this encounterSumma Health Wadsworth - Rittman [facility] Center08-21-2022 Instructions* Patient Instructions* She Pete DO - [...] your usual activities immediately. documented in this encounterSumma Health Wadsworth - Rittman [facility] Center08-17-2022 History of Present illness Narrative* She Pete DO - 2022 5:57 PM EDT Jay Barber is here for IRB # [id number] Cystic Fibrosis Patient Registry IRB# [id number] Junior Net Developer: Forrest Hale MD 1. Junior Net Developer and/or Research Nurse explained the protocol to [...] with their health care team here at [facility]. There is no compensation for participating in this study. Zoie Barber verbalized understanding and had no further questions prior to signing the consent. Nostudy procedures occurred prior to signing consent. 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 We discussed possibility of referral to [facility], would like to hold off for now [...] ---Referral to ENT for surgical eval. Appt [phone]. CYSTIC FIBROSIS RELATED DIABETES ---The standard medical therapy for CFRD is subcutaneous insulin (oral diabetic agents should not be used); ---Patient currently on insulin therapy. ---Self monitored blood glucose 3 times per day ---Most recent hgA1c noted. ---Following with Dr. 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 Burke France in 2019 for [...] or hypoglycemic symptoms Prior exacerbation treatments per [facility] Procedures & IV/Oral Course: -12/15/95-12/23/95 Hospitalized [...] po X 2 weeks -11/13/2010 Hospital/surgery at [facility]: Splenorenal shunt --- -03/13/2011 Home treatment Bactrim [...] related to cystic fibrosis (HCC) Liver disease alf (current) use of insulin (HCC) Transfusion history [...] about 40 total units a day Insulin Mabank, Disposable, (BD ULTRA-FINE YARON PEN NEEDLE) 32 [...] recent EKG CXR and KUB 05/12/2022 - [facility] IMPRESSION: There are chronic cystic fibrosis [...] is abnormal). LAST LAB RESULTS: ---Reviewed in [facility] CBC with diff: WBC 6.58 12/05/2015 RBC 5.39 12/05/2015 Hemoglobin 16.2 12/05/2015 Hematocrit 48.4 12/05/2015 MCV 89.8 12/05/2015 MCH 30.1 12/05/2015 MCHC 33.5 12/05/2015 RDW-CV 12.9 12/05/2015 Platelet Count 157 12/05/2015 MPV 11.0 12/05/2015 Neut% 62.5 12/05/2015 Lymph% 24.9 12/05/2015 Mccone% 9.1 12/05/2015 Eosin% 3.0 12/05/2015 Baso% 0.5 12/05/2015 Abs Neut (ANC) 4.11 12/05/2015 Abs Mccone 0.60 12/05/2015 Abs Eosin 0.20 12/05/2015 Abs [...] 05/29/2018 10.3 06/25/2016 7.0 SPIROMETRY: Reviewed in [address] [address] Test Date: 2022 Pat Name: JAY BARBER Department: Room: Gender: Male 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: : 1995 Requested By: Order Number: [id number] Reading MD: Interpretive Statements The exhaled (FVC) spirometry maneuver meets ATS/ERS acceptability and repeatability standards. The inspired (FIVC) spirometry maneuver is [less than] the FVC maneuver. //KS IMPRESSION: Site: [facility] ID: [id number] Name: ELISABETH JAY Visit Date: 2022 Doctor: 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: Kaylen Daigle Age: 27 Date of : [...] FEF75 (L/sec) 1.52 0.80 2.69 0.14 9 EME77-51 (L/sec) 3.77 2.35 5.51 0.27 7 PEF [...] She Pete DO 2022 documented in this encounterSumma Health Wadsworth - [facility]itt[facility] Center06-14-2022 Hospital course Narrative * Lilliana Harvey APRN-[facility] - 05/14/2022 1:29 PM EDT Discharge/Transfer Summary Name: Jay Barber MR#: [id number] : 1995 Room #: GEL8383/01 Age/Sex: 26 y.o. male Admit Date: 05/12/2022 Admitting: Curtis Arguelles MD Discharge Date: 05/14/2022 Discharged from: [facility] Attending: Curtis Cisneros MD Final Diagnosis: RITA [...] [ ] [ ] [ ] CREON [id number] units capsule Take 3 Capsules (108,000 Units) by mouth Before Meals and 2 Snacks Generic drug: pancrelipase [ ] [ ] [ ] [ ] [ ] fluticasone 220 MCG/ACT 220 mcg inhaler Inhale 1 Puff into the lungs 2 times daily Commonly known as: FLOVENT HFA [ ] [ ] [ ] [ ] [ ] fluticasone 50 MCG/ACT nasal spray 1 [place] by Each Nare route 2 times daily [...] ] [ ] [ ] [ ] OPTICNetBeezBER DINO Jean-Paul DEVICE by Other route Use [...] therapy pack Am dose only Generic drug: Qclacbju-Eipfmpu-Guujrk&Ivacaf [ ] [ ] [ ] [ ] [ ] vitamin D 1.25 MG (29802 UT) capsule Take 1 Capsule (50,000 Units) by mouth every 7 days Indications: Osteoporosis Commonly known as: ERGOCALCIFEROL [ ] [ ] [ ] [ ] [ ] Discharge Instructions: Resume normal activity, diet, and medications. Add Miralax 17g PO q day as needed. Signed: Siria Odonnell was present and examined patient for discharge. documented in this encounterBarnesville [facility]06-14-[facility]22 Progress note* Ancillary Progress Note - [...] at bedside. Patient is being seen at [facility] pediatric unit. No specific needs were expressed at this time. Will continue to follow up throughoutadmissions. Patient expected to be discharged. TANA Friend [facility]06-14-2022 Miscellaneous Notes* Ancillary Progress Note - [...] at bedside. Patient is being seen at [facility] [place] pediatric unit. No specific needs were expressed [...] corn Appetite: Good Supplements: ensure Activity: working [employer]: Receives one case of [...] Summary: Jay Barber was seen today at [facility]. Jay was admitted for poor intake related [...] Evaluation Patient's Name: Jay Barber MR #: [id number] Patient's : 1995 Patient's age: 26 y.o. Location: [place] Evaluation date: 05/13/2022 Start Time: 15:45 Stop [...] 26 y.o. 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 Home design includes: bedroom is on the 1st floor and bathroom is on the 1st floor. Jay was last admitted to [facility] from 06/15/19 to 06/28/19 due to Cystic [...] and output Outcome: Ongoing documented in this [facility]06-14[facility]20[facility] Plan of care note* Plan of [...] Acute Goal: Reduced pain sensation Outcome: Ongoing [facility]06[facility]13[facility]20[facility] Plan of care note* Plan of [...] Acute Goal: Reduced pain sensation Outcome: Ongoing [facility]06[facility]13[facility]20[facility] Consult note* Ancillary Consult - Bert [...] corn Appetite: Good Supplements: ensure Activity: working [employer] Programs: Receives one case of [...] Summary: Jay Barber was seen today at [facility]. Jay was admitted for poor intake related [...] minute(s) Bert Briones RD/GERRY May 13, 2022 [facility]06-13-2022 History of Present illness Narrative* Curtis [...] 3 Taking vitamin D (ERGOCALCIFEROL) 1.25 MG (91028 UT) capsule Take 1 Capsule (50,000 Units) [...] each use. 1 Each 11 Taking CREON [id number] units capsule Take 3 Capsules (108,000 Units) by mouth Before Meals and 2 [id number] Capsule 11 Taking fluticasone (FLONASE) 50 MCG/ACT nasal spray 1 [place] by Each Nare route 2 times daily 1 g 0 Taking Hxwwuyli-Diogbaj-Vlnbau&Ivacaf (TRIKAFTA) 100-50-75 & 150 MG oral tablet [...] nebulize cayston 1 Each 5 Spacer/Aero-Holding Chambers ([facility] DINO) JEAN-PAUL DEVICE by Other route [...] patient was 30 minutes. [facility] Consult note* Ancillary Consult - Joana Castro PT - 05/13/2022 9:14 AM EDT Physical Therapy General Evaluation Patient's Name: Jay Barber MR #: [id number] Patient's : 1995 Patient's age: 26 y.o. Location: [place] Evaluation date: 05/13/2022 Start Time: 15:45 Stop [...] 26 y.o. 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 Home design includes: bedroom is on the 1st floor and bathroom is on the 1st floor. Jay was last admitted to [facility] from 06/15/19 to 06/28/19 due to Cystic [...] the referral. Joana Castro, PT 9:14 AM [facility]06-13-2022 Plan of care note* Plan of [...] Goal: Balanced intake and output Outcome: Ongoing [facility] History and physical note* Curtis Cisneros [...] 3 Taking vitamin D (ERGOCALCIFEROL) 1.25 MG (91985 UT) capsule Take 1 Capsule (50,000 Units) [...] each use. 1 Each 11 Taking CREON [id number] units capsule Take 3 Capsules (108,000 Units) by mouth Before Meals and 2 [id number] Capsule 11 Taking fluticasone (FLONASE) 50 MCG/ACT nasal spray 1 [place] by Each Nare route 2 times daily 1 g 0 Taking Qemedqno-Qmkuaei-Ovohsl&Ivacaf (TRIKAFTA) 100-50-75 & 150 MG oral tablet [...] 225 mL 3 Unknown Respiratory Therapy Supplies (Blink.comA NEBULIZER HANDSET) MISC 1 Each by Does not apply route 3 times daily To be used to nebulize cayston 1 Each 5 Spacer/Aero-Holding Chambers (OutrightBER DINO) JEAN-PAUL DEVICE by Other route Use [...] care for this patient was 50 minutes. [facility]06-12-2022 History and physical note* Curtis Cisneros [...] 3 Taking vitamin D (ERGOCALCIFEROL) 1.25 MG (76033 UT) capsule Take 1 Capsule (50,000 Units) [...] each use. 1 Each 11 Taking CREON [id number] units capsule Take 3 Capsules (108,000 Units) by mouth Before Meals and 2 [id number] Capsule 11 Taking fluticasone (FLONASE) 50 MCG/ACT nasal spray 1 [place] by Each Nare route 2 times daily 1 g 0 Taking Ngtwodvz-Btsirfj-Vzxrbq&Ivacaf (TRIKAFTA) 100-50-75 & 150 MG oral tablet [...] mL 3 Unknown Respiratory Therapy Supplies (BOB [employer] MaterialsA NEBULIZER HANDSET) MISC 1 Each by Does not apply route 3 times daily To be used to nebulize cayston 1 Each 5 Spacer/Aero-Holding Chambers (Peerlyst DINO) JEAN-PAUL DEVICE by Other route Use [...] patient was 50 minutes. documented in [facility] encounter[facility] Emergency department Note* Magalie Kuhn RN - 05/12/2022 3:36 PM EDT Pritesh notified of pt's departure. [facility]06-12-2022 Emergency department Note* Magalie Kuhn RN - 05/12/2022 3:36 PM EDT Pritesh notified of pt's departure. * Magalie Kuhn RN - 05/12/2022 3:25 PM EDT Pt resting comfortably, updated on plan of care. Pt states he is feeling better at this time. * Magalie Kuhn RN - 05/12/2022 2:37 PM EDT Jay Barber [id number] Point of Care testing Glucometer: Venous blood [...] Age: approx 27 months Referred From:transferred from [facility] Cystic fibrosis exacerbation 04/11/2014 multiple Diabetes [...] patient's case with Dr. Curtis Cisneros at [facility]. Patient was transferred to [facility] at [facility] for admission and further management. ED Course: Diagnosis' considered: viral gastro vs JOSE vs pancreatitis vs acute appy Labs/Radiology: CBC, CMP, Lipase, KUB, RFA Consults: No orders of the defined types were placed in this encounter. Medical Record/Transferring Institution Record: Treatment/Reassessment: Encounter Documentation/Handoff: Medical Decision Making as of 05/13/22 0853 [place] May 12, 2022 0911 26 yom, history [...] 6.0(!!) [DV] [address] Cisneros, [facility], who accepted patient for admission for IVF, tachycardia, emesis. Dr. Cisneros will call back as he needs to discuss with team regarding transfer/admission. Patient updated and aware of plan. [ES] 1316 keenan Meyer for transfer to [place]. Called [facility] and working on obtaining ALS at this time. [ES] 1324 RFA neg [ES] 1345 Pt with ongoing emesis, Reglan ordered. [ES] 1504 Home insulin ordered for BGT of 427. [ES] 1535 VSS. Patient transferred to [place] via [facility]. [DV] Medical [...] clear and resp easy. documented in this encounter[facility]06[facility] Emergency department Note* Magalie Kuhn RN - 05/12/2022 3:25 PM EDT Pt resting comfortably, updated on plan of care. Pt states he is feeling better at this time. [facility]06-12[facility] Emergency department Note* Magalie Kuhn RN - 05/12/2022 2:37 PM EDT Jay Barber [id number] Point of Care testing Glucometer: Venous blood drawn 427 mg/dl Results of < 45 or > 450 mg/dl need to be confirmed by the laboratory REFERENCE RANGE: 60-110 mg/dl. Two identifiers from patient verified. Test performed at bedside. Specimen labelled in the presenceof the patient. [facility]06[facility]12[facility] Emergency department Note* Magalie Kuhn RN - 05/12/2022 2:20 PM EDT Nursing report given to receiving nurse. This nurse to call when patient leaves. [facility]06-12-2022 Emergency department Note* Magalie Kuhn RN - 05/12/2022 2:01 PM EDT Pt up to restroom unassisted. [facility] Emergency department Note* Magalie Kuhn RN - 05/12/2022 1:35 PM EDT Pt vomiting, fellow aware. [facility]06-12-2022 NoteIs this a pre-procedure screening test?->No Release to patient->[employer]omatic[facility] [id number] Emergency department Note* Magalie Kuhn RN - 05/12/2022 11:42 AM EDT Pt up to restroom, unassisted. Pt tolerated well. Pt reports PO of 240cc gatorade and feels well. [facility]06-12-20[facility] Emergency department Note* Magalie Kuhn RN - 05/12/2022 10:42 AM EDT Critical lab value K of 8.3 (hemolyzed) verbally received from laboratory staff. Dr. Ryan (current provider) was notified at this time. Immediate interventions identified in reponse: redraw K. [facility]06-12-2022 Emergency department Note* Magalie Kuhn RN - 05/12/2022 10:04 AM EDT IV attempted x2 in R forearm unsuccessfully, pt tolerated well. EKG done and given to provider. [facility]06-12-[facility] Emergency department Note* Lolis James RN - 05/12/2022 10:00 AM EDT This RN to bedside to insert IV via ultrasound guidance. Pt awake, alert. NAD. Resps easy. Pt asking for gatorade after IV placed and fluids started. phil Mejias RN notified. [facility]06-12-2022 Physician Emergency department Note* Sabina Larios [...] patient's case with Dr. Curtis Cisneros at [facility]. Patient was transferred to [facility] at [facility] for admission and further management. ED Course: Diagnosis' considered: viral gastro vs JOSE vs pancreatitis vs acute appy Labs/Radiology: CBC, CMP, Lipase, KUB, RFA Consults: No orders of the defined types were placed in this encounter. Medical Record/Transferring Institution Record: Treatment/Reassessment: Encounter Documentation/Handoff: Medical Decision Making as of 05/13/22 0853 [place] May 12, 2022 0911 26 yom, history [...] 6.0(!!) [DV] [address] Cisneros, [facility], who accepted patient for admission for IVF, tachycardia, emesis. Dr. Cisneros will call back as he needs to discuss with team regarding transfer/admission. Patient updated and aware of plan. [ES] 1316 keenan Meyer for transfer to [place]. Called [facility] and working on obtaining ALS at this time. [ES] 1324 RFA neg [ES] 1345 Pt with ongoing emesis, Reglan ordered. [ES] 1504 Home insulin ordered for BGT of 427. [ES] 1535 VSS. Patient transferred to [place] via [facility]. [DV] Medical [...] Sabina Larios MD Pediatric Emergency Medicine, PGY4 [facility]06-12-2022 Emergency department Triage note* Be Zaidi RN - 05/12/2022 8:44 AM EDT Patient came to the ED for vomiting since Friday night and elevated HR since last night. Patient c/o worsening abdomen pain. Patient voided 1 time today. Patient took 2 CoVid tests, negative. Pt alert and ambulatory, skin pink warm and dry, lungs clear and resp easy. [facility]04-20-2022 History of Present illness Narrative* Miguelina Murray RN - 03/20/2022 11:01 AM EDTSummary: New CF patient referral Images from the original note were not included. Referral from: [facility] Dr. Jean Pierre Kilgore Patient from: [place], [place] Reason for consult: Cystic Fibrosis Transition of Care Genotype: Delta [id number] Complications of CF: ---ADVANCED stage lung disease; [...] home. Supplemental oxygen use: NO CURRENT MEDICATIONS: Gwnxfdfo-Lspqene-Rdzbwc&Ivacaf (TRIKAFTA) 100-50-75 & 150 MG oral tablet [...] Capsule 3 vitamin D (ERGOCALCIFEROL) 1.25 MG (93647 UT) capsule Take 1 Capsule (50,000 Units) [...] for Allergies 30 Tab 11 Spacer/Aero-Holding Chambers (OutrightBER DINO) JEAN-PAUL DEVICE by Other route Use [...] into the muscle Use as instructed. CREON 87106 units capsule Take 3 Caps (108,000 Units) [...] scan ---Follow up/discuss Transplant Miguelina Murray RN Planning Specialist CF and Bronchiectasis Programs A110 [facility] Miscellaneous Notes* Telephone Encounter - Nell Lozano - 03/05/2022 1:09 PM EDT I have called patient and he did not answer. I left a voicemail requesting that he give me a call back at his earliest convenience. * Telephone Encounter - Nell Lozano - 03/05/2022 7:54 AM EDT Referring physician: Dr. Jean Pierre Kilgore Address: [facility] Phone: Fax: Diagnosis: Cystic Fibrosis Are there [facility] records: Yes Are there care everywhere records: Yes Has a referral form been faxed: No Has patient been added to spreadsheet: Yes [facility]Tr[facility] + Plan note No data available for this section [facility] Evaluation note* Diagnosis Cystic fibrosis with pulmonary manifestations (HCC)- Primary Cystic fibrosis with pulmonary manifestations documented in this encounter [facility] note* Diagnosis Intractable nausea and vomiting- Primary [...] to cystic fibrosis [facility] Diagnosis 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)- Primary Vitamin D deficiency Unspecified vitamin D deficiency [facility] this encounter [facility]* Diagnosis Cystic fibrosis with pulmonary manifestations [...] screening for osteoporosis [facility] this encounter [facility]* Diagnosis Cystic fibrosis with pulmonary manifestations (HCC)- Primary Cystic fibrosis with pulmonary manifestations [facility]* Diagnosis Cystic fibrosis with pulmonary manifestations (HCC)- Primary Cystic fibrosis with pulmonary manifestations Hemoptysis Hemoptysis, unspecified Pseudomonas aeruginosa infection Pseudomonas infection in conditions classified elsewhere and of unspecified site Burkholderia cepacia infection Infection due to other gram-negative organisms in conditions classified elsewhere and of unspecified site [facility] encounter [facility]* Diagnosis Cystic fibrosis with pulmonary manifestations (HCC) Cystic fibrosis with pulmonary manifestations [facility]* Diagnosis Cystic fibrosis (HCC) Cystic fibrosis without mention of meconium ileus [facility] encounter [facility]* Diagnosis Cystic fibrosis (HCC)- Primary Cystic [...] [facility] noteNo assessment information availableWCincinnati [facility] Work Phone: Evaluation note* Diagnosis Cystic fibrosis with pulmonary manifestations (HCC)- Primary Cystic fibrosis with pulmonary manifestations [facility] Diagnosis Type 1 diabetes mellitus [...] of meconium ileus [facility] Diagnosis CF (cystic fibrosis) (HCC)- [...] severe protein-calorie malnutrition [facility]* Diagnosis Cystic fibrosis (HCC) Cystic [...] Low weight Underweight [facility]* Diagnosis Infection- Primary Unspecified infectious and parasitic diseases documented [facility]* Diagnosis Cystic fibrosis with pulmonary manifestations [...] of unspecified site [facility]* Diagnosis Cystic fibrosis with pulmonary manifestations (HCC)- Primary Cystic fibrosis with pulmonary manifestations [facility]* Diagnosis Cystic fibrosis with pulmonary manifestations (HCC)- Primary Cystic fibrosis with pulmonary manifestations [facility]* Diagnosis CF (cystic fibrosis) (HCC) Cystic fibrosis without mention of meconium ileus [facility]* Diagnosis Need for prophylactic vaccination [...] of unspecified site [facility]* Diagnosis Cystic fibrosis with pulmonary exacerbation (HCC)- Primary Cystic fibrosis with pulmonary manifestations [facility]* Diagnosis Type 1 diabetes mellitus with hyperglycemia (HCC)- Primary 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 mention of complication, not stated as uncontrolled [facility]* Diagnosis Cystic fibrosis with pulmonary manifestations (HCC)- Primary Cystic fibrosis with pulmonary manifestations [facility] Diagnosis Type 1 diabetes mellitus with hyperglycemia (HCC)- Primary 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 mention of complication, not stated as uncontrolled [facility]* Diagnosis Cystic fibrosis with pulmonary manifestations (HCC)- Primary Cystic fibrosis with pulmonary manifestations [facility]* Diagnosis Cystic fibrosis with pulmonary manifestations (HCC) Cystic fibrosis with pulmonary manifestations [facility]* Diagnosis Cystic fibrosis with pulmonary manifestations (HCC)- Primary Cystic fibrosis with pulmonary manifestations [facility]* Diagnosis Cystic fibrosis (HCC)- Primary Cystic fibrosis without mention of meconium ileus documented [facility] this [facility]* Diagnosis Cystic fibrosis with pulmonary exacerbation (HCC)- Primary Cystic fibrosis with pulmonary manifestations [facility]* Diagnosis Cystic fibrosis (HCC)- Primary Cystic fibrosis without mention of meconium ileus 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) 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) Secondary diabetes mellitus without mention of complication, not stated as uncontrolled, or unspecified Dietary counseling and surveillance Dietary surveillance and counseling documented in this encounter [facility]* Diagnosis Cystic fibrosis with pulmonary exacerbation [...] Low weight Underweight [facility]* Diagnosis Cystic fibrosis with pulmonary exacerbation (HCC)- Primary Cystic fibrosis with pulmonary manifestations Cystic fibrosis with pulmonary manifestations (HCC) Cystic fibrosis with pulmonary manifestations [facility] this [facility]* Diagnosis Cystic fibrosis with pulmonary exacerbation (HCC)- Primary Cystic fibrosis with pulmonary manifestations [facility]* Diagnosis Type 1 diabetes mellitus with hyperglycemia (HCC)- Primary 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 mention of complication, not stated as uncontrolled [facility]* Diagnosis Cystic fibrosis (HCC) [E84.9 (ICD-10-CM)]- Primary Cystic fibrosis without mention of meconium ileus [facility]* Diagnosis Cystic fibrosis (HCC)- Primary Cystic fibrosis without mention of meconium ileus 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) [facility]* Diagnosis Cystic fibrosis (HCC)- Primary Cystic fibrosis without mention of meconium ileus [facility]* Diagnosis Cystic fibrosis (HCC) Cystic fibrosis without mention of meconium ileus [facility]* Diagnosis Cystic fibrosis with pulmonary manifestations (HCC)- Primary Cystic fibrosis with pulmonary manifestations [facility]* Diagnosis Cystic fibrosis with pulmonary manifestations (HCC)- Primary Cystic fibrosis with pulmonary manifestations Cystic fibrosis with pulmonary exacerbation (HCC) Cystic fibrosis with pulmonary manifestations [facility]* Diagnosis Cystic fibrosis (HCC)- Primary [...] cystic fibrosis (HCC) [facility]* Diagnosis Cystic fibrosis (HCC)- Primary Cystic fibrosis without mention of meconium ileus [facility]* Diagnosis Cystic fibrosis (HCC)- Primary [...] with pulmonary manifestations documented in this encounter [facility]* Diagnosis Anemia due to multiple mechanisms- Primary Anemia, unspecified Other specified intestinal malabsorption documented in this encounter [facility]* Diagnosis Cystic fibrosis (HCC)- Primary Cystic fibrosis without mention of meconium ileus documented [facility] this encounter [facility]* Diagnosis Cystic fibrosis with pulmonary manifestations [...] severe protein-calorie malnutrition [facility]* Diagnosis Osteoporosis without current pathological fracture, unspecified osteoporosis type documented in this encounter [facility]* Diagnosis Osteoporosis, unspecified osteoporosis type, unspecified pathological fracture presence- Primary Cystic fibrosis (HCC) Cystic fibrosis without mention of meconium ileus [facility]* Diagnosis Cystic fibrosis with pulmonary manifestations (HCC)- Primary Cystic fibrosis with pulmonary manifestations documented in this encounter [facility]* Diagnosis Cystic fibrosis (HCC) Cystic fibrosis without mention of meconium ileus 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) [facility]* Diagnosis Cystic fibrosis (HCC)- Primary Cystic fibrosis without mention of meconium ileus documented [facility] this encounter [facility]* Diagnosis Type 1 diabetes mellitus with hyperglycemia (HCC) 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 mention of complication, not stated as uncontrolled [facility] this [facility]* Diagnosis Cystic fibrosis (HCC)- Primary Cystic fibrosis without mention of meconium ileus 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) 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) Secondary diabetes mellitus without mention of complication, not stated as uncontrolled, or unspecified Dietary counseling and surveillance Dietary surveillance and counseling Vitamin D deficiency Unspecified vitamin D deficiency documented [facility] this [facility]* Diagnosis Dyspnea, unspecified type- Primary [facility]* Diagnosis 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)- Primary [facility] Diagnosis Cystic fibrosis (HCC)- Primary Cystic fibrosis without mention of meconium ileus documented [facility] encounter [facility]* Diagnosis Cystic fibrosis (HCC)- Primary Cystic fibrosis without mention of meconium ileus [facility]* Diagnosis Infection- Primary Unspecified infectious and parasitic diseases documented in this encounter [facility]* Diagnosis Cystic fibrosis exacerbation (HCC)- Primary Cystic fibrosis without mention of meconium ileus Cystic fibrosis with pulmonary exacerbation (HCC) Cystic fibrosis with pulmonary manifestations [facility]* Diagnosis Cystic fibrosis (HCC)- Primary Cystic fibrosis without mention of meconium ileus 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) Secondary diabetes mellitus without mention of complication, not stated as uncontrolled, or unspecified Cystic fibrosis with pulmonary manifestations (HCC) Cystic fibrosis with pulmonary manifestations Vitamin D deficiency Unspecified vitamin D deficiency documented [facility]* Diagnosis Type 1 diabetes mellitus with hyperglycemia (HCC) 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 mention of complication, not stated as uncontrolled [facility]* Diagnosis Cystic fibrosis with pulmonary exacerbation (HCC)- Primary Cystic fibrosis with pulmonary manifestations [facility]* Diagnosis Cystic fibrosis (HCC)- Primary Cystic fibrosis without mention of meconium ileus [facility] Diagnosis Type 1 diabetes mellitus with hyperglycemia (HCC)- Primary 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 mention of complication, not stated as uncontrolled [facility] Diagnosis 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)- Primary Cystic fibrosis with other manifestations [facility] Diagnosis Elevated alkaline phosphatase level- Primary Other nonspecific abnormal serum enzyme levels [facility]* Diagnosis Diabetes mellitus related to [...] of unspecified site [facility] Diagnosis Cystic fibrosis with pulmonary exacerbation [...] of unspecified site [facility]* Diagnosis Hyperkalemia- Primary Hyperpotassemia Cystic fibrosis (HCC) Cystic fibrosis without mention of meconium ileus [facility] Diagnosis Cystic fibrosis (HCC)- Primary Cystic fibrosis without mention of meconium ileus [facility] Diagnosis Cystic fibrosis (HCC) Cystic fibrosis without mention of meconium ileus [facility] Diagnosis Cystic fibrosis (HCC)- Primary Cystic fibrosis without mention of meconium ileus Cystic fibrosis exacerbation (HCC) Cystic fibrosis without mention of meconium ileus [facility] Diagnosis Cystic fibrosis (HCC)- Primary Cystic [...] with other manifestations [facility] Diagnosis Diabetes mellitus related to CF [...] of meconium ileus [facility] Diagnosis Cystic fibrosis (HCC)- Primary Cystic fibrosis without mention of meconium ileus 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) 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) Cystic fibrosis without mention of meconium ileus [facility] Diagnosis Cystic fibrosis (HCC)- Primary Cystic fibrosis without mention of meconium ileus 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) Secondary diabetes mellitus without mention of complication, not stated as uncontrolled, or unspecified 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) Dietary counseling and surveillance Dietary surveillance and counseling [facility] Diagnosis Cystic fibrosis (HCC)- Primary Cystic fibrosis without mention of meconium ileus [facility] Diagnosis Cystic fibrosis (HCC)- Primary Cystic fibrosis without mention of meconium ileus [facility]* Diagnosis Type 1 diabetes mellitus with hyperglycemia (HCC)- Primary 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 mention of complication, not stated as uncontrolled 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) Secondary diabetes mellitus without mention of complication, not stated as uncontrolled, or unspecified [facility] Diagnosis Cystic fibrosis (HCC)- Primary Cystic fibrosis without mention of meconium ileus [facility] Diagnosis Cystic fibrosis with pulmonary manifestations (HCC)- Primary Cystic fibrosis with pulmonary manifestations [facility] Diagnosis Cystic fibrosis with pulmonary manifestations (HCC)- Primary Cystic fibrosis with pulmonary manifestations 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) Secondary diabetes mellitus without mention of complication, not stated as uncontrolled, or unspecified [facility]* Diagnosis Fever, unspecified fever cause- Primary Acute cough Cystic fibrosis (HCC) Cystic fibrosis without mention of meconium ileus [facility] Diagnosis Cystic fibrosis with pulmonary manifestations (HCC) Cystic fibrosis with pulmonary manifestations documented in this encounter [facility] note* Diagnosis Sore throat- Primary Acute pharyngitis Subacute cough Cough Fever, unspecified fever cause Cystic fibrosis (HCC) Cystic fibrosis without mention of meconium ileus Subacute cough Cough documented in this encounter [facility] note* Diagnosis Subacute cough Cough [facility] Diagnosis Cystic fibrosis (HCC)- Primary Cystic fibrosis without mention of meconium ileus [facility] Diagnosis Cystic fibrosis (HCC)- Primary Cystic [...] fibrosis (HCC) (HCC) documented in this encounter [facility] note* Diagnosis Cystic fibrosis (HCC)- Primary Cystic fibrosis without mention of meconium ileus documented in this encounter [facility] note* Diagnosis Type 1 diabetes mellitus with hyperglycemia (HCC)- Primary 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 mention of complication, not stated as uncontrolled 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) Secondary diabetes mellitus without mention of complication, not stated as uncontrolled, or unspecified documented in this encounter [facility] note* Diagnosis Cystic fibrosis (HCC)- Primary Cystic fibrosis without mention of meconium ileus documented in this encounter [facility] note* Diagnosis Cystic fibrosis (HCC)- Primary Cystic fibrosis without mention of meconium ileus [facility] Diagnosis Cystic fibrosis with pulmonary manifestations (HCC)- Primary Cystic fibrosis with pulmonary manifestations documented in this encounter [facility] note* Diagnosis Cystic fibrosis (HCC)- Primary Cystic fibrosis without mention of meconium ileus [facility] No data available for this section [facility] Progress note No data available for this section [facility] Reason for referral (narrative)* Outpatient Procedure (Routine) - Pending Review Specialty Diagnoses / Procedures Referred By Contac t Referred To [facility] Diagnoses Cystic fibrosis with pulmonary manifestations (HCC) Procedures SPIROMETRY BASELINE ONLY SPMTRY W/VC EXPIRATORY CRISTINA W/WO MXML VOL VNTJ Forrest Hale MD [address] [place] [address] [address] Referral ID Status Reason Start Date Expiration Date Visits Requested Visits Authorized [id number] Pending Review Auto-Generat ed Referral 03/12/2022 04/04/2023 1 1 [facility] for referral (narrative)* Outpatient Procedure (Routine) - Pending Review Specialty Diagnoses / Procedures Referred By Contac t Referred To [facility] [place] Diagnoses CF (cystic fibrosis) (HCC) Procedures SPIROMETRY BASELINE ONLY SPMTRY W/VC EXPIRATORY CRISTINA W/WO MXML VOL VNTJ She Pete DO [address] [place] [address] [address] Referral ID Status Reason Start Date Expiration Date Visits Requested Visits Authorized [id number] Pending Review Auto-Generat ed Referral 08/28/2022 09/27/2023 1 1 [facility] for referral (narrative)* Outpatient Procedure (Routine) - Pending Review Specialty Diagnoses / Procedures Referred By Contac t Referred To [facility] [place] Diagnoses Cystic fibrosis (HCC) Procedures SPIROMETRY BASELINE ONLY SPMTRY W/VC EXPIRATORY CRISTINA W/WO MXML VOL VNTJ Sally Schneider APRN.ACID CLEANER [address] [place] [address] [address] Referral ID Status Reason Start Date Expiration Date Visits Requested Visits Authorized [id number] Pending Review Auto-Generat ed Referral 2 12/11/2023 1 1 [facility] for referral (narrative)* Outpatient Procedure (Routine) - Pending Review Specialty Diagnoses / Procedures Referred By Contac t Referred To [facility] Diagnoses Cystic fibrosis with pulmonary manifestations (HCC) Cystic fibrosis with pulmonary exacerbation (HCC) Procedures SPIROMETRY BASELINE ONLY SPMTRY W/VC EXPIRATORY CRISTINA W/WO MXML VOL She Granado DO [address] [place] [address] [address] Referral ID Status Reason Start Date Expiration Date Visits Requested Visits Authorized [id number] Pending Review Auto-Generat ed Referral 2 12/20/2023 1 1 [facility] for referral (narrative)* Outpatient Procedure (Routine) - Authorized Specialty Diagnoses / Procedures Referred By Contac t Referred To [facility] [place] Diagnoses Cystic fibrosis with pulmonary manifestations (HCC) Procedures SPIROMETRY BASELINE ONLY SPMTRY W/VC EXPIRATORY CRISTINA W/WO MXML VOL She Granado DO [address] [place] [address] [address] Referral ID Status Reason Start Date Expiration Date Visits Requested Visits Authorized [id number] Authorized Auto-Generat ed Referral 03/03/2023 04/01/2024 1 1 [facility] for referral (narrative)* Outpatient Procedure (Routine) - Authorized Specialty Diagnoses / Procedures Referred By Contac t Referred To [facility] [place] Diagnoses Cystic fibrosis (HCC) Procedures SPIROMETRY BASELINE ONLY SPMTRY W/VC EXPIRATORY CRISTINA W/WO MXML VOL VNTJ Sally Schneider APRN.ACID CLEANER [address] [place] [address] Res[facility] [place] [address] [place], [place] [id number] Referral ID Status Reason Start Date Expiration Date Visits Requested Visits Authorized [id number] Authorized Auto-Generat ed Referral 03/10/2023 04/08/2024 1 1 [facility] for referral (narrative)* Diagnostic Procedure Only (Routine) - Pending Review Specialty Diagnoses / Procedures Referred By Contac t Referred To Contact XR IMAGING Diagnoses Cystic fibrosis (HCC) 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) Procedures XR ABDOMEN 1V SUPINE RADIOLOGIC EXAM ABDOMEN 1 VIEW Sally Schneider APRN.ACID CLEANER [address] [place] [address] Xr Imaging Referral ID Status Reason Start Date Expiration Date Visits Requested Visits Authorized [id number] Pending Review Auto-Generat ed Referral 05/19/2023 06/17/2024 1 1 [facility] for referral (narrative)* Outpatient Procedure (Routine) - Authorized Specialty Diagnoses / Procedures Referred By Contac t Referred To Contact [facility] Diagnoses Cystic fibrosis with pulmonary manifestations (HCC) Procedures SPIROMETRY BASELINE ONLY SPMTRY W/VC EXPIRATORY CRISTINA W/WO MXML VOL Jean Pierre Chase MD [address] [facility] [address] [place] [address] Respiratory [place] [address] [place] [address] Referral ID Status Reason Start Date Expiration Date Visits Requested Visits Authorized [id number] Authorized Auto-Generat ed Referral 06/04/2023 07/03/2024 1 1 [facility] for referral (narrative)* Diagnostic Procedure Only (Routine) - Closed Specialty Diagnoses / Procedures Referred By Contac t Referred To Contact XR IMAGING Diagnoses Cystic fibrosis (HCC) Procedures XR ABDOMEN 1V SUPINE RADIOLOGIC EXAM ABDOMEN 1 VIEW Sally Schneider APRN.CNP [address] [place] [id number] Xr Imaging Referral ID Status Reason Start Date Expiration Date V isits Requested Visits Authorized [id number] Closed Auto-Generate d Referral 07/02/2023 07/31/2024 1 1 [facility] for referral (narrative)* Diagnostic Procedure Only (Routine) - Pending Review Specialty Diagnoses / Procedures Referred By Contac t Referred To Contact XR IMAGING Diagnoses Osteoporosis without current pathological fracture, unspecified osteoporosis type Procedures DXA-AXIAL SKELETON WITH VFA DXA BONE DENSITY STUDY AXIAL SKELETON She Pete DO [address] [place] [address] Xr Imaging [facility]95 Referral ID Status Reason Start Date Expiration Date Visits Requested Visits Authorized [id number] Pending Review Auto-Generat ed Referral 08/01/2023 08/30/2024 1 1 [facility] for referral (narrative)* Outpatient Procedure (Routine) - Authorized Specialty Diagnoses / Procedures Referred By Contac t Referred To Contact [facility] Diagnoses Cystic fibrosis with pulmonary manifestations (HCC) Procedures SPIROMETRY BASELINE ONLY SPMTRY W/VC EXPIRATORY CRISTINA W/WO MXML VOL VNTJ She Pete DO [address] [place] [address] Respiratory [place] [address] [place] [address] Referral ID Status Reason Start Date Expiration Date Visits Requested Visits Authorized [id number] Authorized Auto-Generat ed Referral 10/23/2024 1 1 [...] to cystic fibrosis (HCC) She Pete DO [address] [place] [address] Referral ID Status Reason Start Date Expiration Date Visits Re quested Visits Authorized [id number] Closed 1 1 [facility] for referral (narrative)* Diagnostic Procedure Only (Routine) - Closed Specialty Diagnoses / Procedures Referred By Contac t Referred To Contact XR IMAGING Diagnoses Cystic fibrosis (HCC) 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) Procedures XR ABDOMEN 1V SUPINE RADIOLOGIC EXAM ABDOMEN 1 VIEW Sally Schneider APRN.CNP [address] [place] [address] Xr Imaging [place] [address] Referral ID Status Reason Start Date Expiration Date V isits Requested Visits Authorized [id number] Closed Auto-Generate d Referral 05/19/2023 06/17/2024 1 1 [facility] for referral (narrative)* Diagnostic Procedure Only (Routine) - Closed Specialty Diagnoses / Procedures Referred By Contac t Referred To Contact [facility] Diagnoses Cystic fibrosis with pulmonary manifestations (HCC) Procedures SPIROMETRY BASELINE ONLY SPMTRY W/VC EXPIRATORY CRISTINA W/WO MXML VOL VNTJ Jean Pierre Kilgore MD [address] [facility] [address] [place] [address] Respiratory [place] [address] [place], [place] [id number] Referral ID Status Reason Start Date Expiration Date Visits Re quested Visits Authorized [id number] Closed 05/05/2024 11/30/2024 1 1 [facility] for referral (narrative)* Outpatient Procedure (Routine) - Pending Review Specialty Diagnoses / Procedures Referred By Contac t Referred To Contact [facility] Diagnoses Cystic fibrosis (HCC) Procedures SPIROMETRY BASELINE ONLY SPMTRY W/VC EXPIRATORY CRISTINA W/WO MXML VOL VNTJ Sally Schneider APRN.ACID CLEANER [address] [place] [address] Res[facility] [place] [address] [place] [address] Referral ID Status Reason Start Date Expiration Date Visits Requested Visits Authorized [id number] Pending Review Auto-Generat ed Referral 05/05/2024 06/04/2025 1 1 * Diagnostic Procedure Only (Routine) - Pending Review Specialty Diagnoses / Procedures Referred By Contac t Referred To Contact XR IMAGING Diagnoses Cystic fibrosis (HCC) Procedures DXA-AXIAL SKELETON WITH VFA DXA BONE DENSITY STUDY AXIAL SKELETON Sally Schneider APRN.CNP [address] [place] [id number] Xr Imaging [facility]95 Referral ID Status Reason Start Date Expiration Date Visits Requested Visits Authorized [id number] Pending Review Auto-Generat ed Referral 05/05/2024 06/04/2025 1 1 [facility] for referral (narrative)* Outpatient Procedure (Routine) - Authorized Specialty Diagnoses / Procedures Referred By Contac t Referred To Contact [facility] Diagnoses Cystic fibrosis with pulmonary manifestations (HCC) Procedures SPIROMETRY BASELINE ONLY SPMTRY W/VC EXPIRATORY CRISTINA W/WO MXML VOL Jean Pierre Chase MD [address] [facility] [address] [place] [address] Respiratory [place] [address] [place] [address] Referral ID Status Reason Start Date Expiration Date Visits Requested Visits Authorized [id number] Authorized Auto-Generat ed Referral 05/05/2024 06/04/2025 1 1 * Outpatient Procedure (Routine) - New Request Specialty Diagnoses / Procedures Referred By Contac t Referred To Contact [facility] Diagnoses Cystic fibrosis with pulmonary manifestations (HCC) Procedures SPIROMETRY BASELINE ONLY SPMTRY W/VC EXPIRATORY CRISTINA W/WO MXML VOL ADILENETJean Pierre Loera MD [address] [facility] [address] [place] [address] Respiratory [place] [address] [place], [place] [id number] Referral ID Status Reason Start Date Expiration Date Visits Requested Visits Authorized [id number] New Request Auto-Generat ed Referral 05/05/2024 06/04/2025 1 1 [facility] for referral (narrative)* Outpatient Procedure (Routine) - Authorized Specialty Diagnoses / Procedures Referred By Contac t Referred To [facility] Diagnoses Cystic fibrosis (HCC) Procedures SPIROMETRY BASELINE ONLY SPMTRY W/VC EXPIRATORY CRISTINA W/WO MXML VOL ADILENETSally [place] APRN.ACID CLEANER [address] [place] [address] [address] Referral ID Status Reason Start Date Expiration Date Visits Requested Visits Authorized [id number] Authorized Auto-Generat ed Referral 09/02/2024 10/02/2025 1 1 [facility] for referral (narrative)* Outpatient Procedure (Routine) - New Request Specialty Diagnoses / Procedures Referred By Contac t Referred To [facility] [place] Diagnoses Cystic fibrosis (HCC) Procedures SPIROMETRY BASELINE ONLY SPMTRY W/VC EXPIRATORY CRISTINA W/WO MXML VOL VNTSally [place] APRN.CNP [address] [place] [address] [address] Referral ID Status Reason Start Date Expiration Date Visits Requested Visits Authorized [id number] New Request Auto-Generat ed Referral 10/09/2025 1 1 [facility] for referral (narrative)* Outpatient Procedure (Routine) - New Request Specialty Diagnoses / Procedures Referred By Contac t Referred To Contact [facility] Diagnoses Cystic fibrosis (HCC) Procedures SPIROMETRY BASELINE ONLY SPMTRY W/VC EXPIRATORY CRISTINA W/WO MXML VOL VNTJ Sally Schneider APRN.CNP [address] [place] [address] Respiratory [place] [id number] Referral ID Status Reason Start Date Expiration Date Visits Requested Visits Authorized [id number] New Request Auto-Generat ed Referral 10/06/2024 11/05/2025 1 1 [facility] for visit Narrative* Outpatient Procedure (Routine) - Closed Specialty Diagnoses / Procedures Referred By Contac t Referred To Contact [facility] [place] Diagnoses Cystic fibrosis (HCC) Procedures SPIROMETRY BASELINE ONLY SPMTRY W/VC EXPIRATORY CRISTINA W/WO MXML VOL VNTJ She Pete, [address] [place] [address] [place] [id number] Referral ID Status Reason Start Date Expiration Date V isits Requested Visits Authorized [id number] Closed Auto-Generate d Referral 03/19/2023 04/17/2024 1 1 [facility] for visit Narrative* Diagnostic Procedure Only (Routine) - Closed Specialty Diagnoses / Procedures Referred By Contac t Referred To Contact XR IMAGING Diagnoses Osteoporosis without current pathological fracture, unspecified osteoporosis type Procedures DXA-AXIAL SKELETON WITH VFA DXA BONE DENSITY STUDY AXIAL SKELETON She Pete, [address] [place] [address] Xr Imaging [facility]95 Referral ID Status Reason Start Date Expiration Date V isits Requested Visits Authorized [id number] Closed Auto-Generate d Referral 08/01/2023 08/30/2024 1 1 [facility] Diagnostic Procedure Only (Routine) - Closed Specialty Diagnoses / Procedures Referred By Jennifer t Referred To Contact XR IMAGING Diagnoses Cystic fibrosis (HCC) 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) Procedures XR ABDOMEN 1V SUPINE RADIOLOGIC EXAM ABDOMEN 1 VIEW Sally Schneider, MATERIAL DISPOSITION INSPECTOR.ACID CLEANER [address] [place] [address] Xr Imaging [place] [address] Referral ID Status Reason Start Date Expiration Date V isits Requested Visits Authorized [id number] Closed Auto-Generate d Referral 05/19/2023 06/17/2024 1 1 [facility] Summary Purpose Family History Relationship Condition Age [...] No July 05, 2020 10:20am Power of Cafeteria Operator No July 05 10:20am Advance Directive Response Recorded Date/ Time Living Will No July 05, 2020 9:20am Power of Cafeteria Operator No July 05 9:20am Latest Code Status [...] to cystic fibrosis (HCC) (HCC) Sally Schneider APRN.ACID CLEANER [address] [place] [address] Referral ID Status Reason Start Date Expiration Date Visits Re quested Visits Authorized [id number] Closed 1 1 Specialty Diagnoses / Procedures Referred By Contac t Referred To Contact Diagnoses Hyperkalemia Sally Schneider APRN.ACID CLEANER [address] [place] [address] Referral ID Status Reason Start Date Expiration Date V isits Requested Visits Authorized [id number] Authorized 08/27/2024 08/26/2025 1 1 Specialty Diagnoses / Procedures Referred By Contac t Referred To Contact Diagnoses 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 Sally Schneider APRN.ACID CLEANER [address] [place] [address] Referral ID Status Reason Start Date Expiration Date Visits Re quested Visits Authorized [id number] Closed 1 1 Referral ID Status Reason Start Date Expiration Date V isits Requested Visits Authorized [id number] Pending Review 08/19/2024 10/18/2024 1 1 Specialty Diagnoses / Procedures Referred By Contac t Referred To Contact MR IMAGING Diagnoses Abnormal results of liver function studies Procedures MRI PANC/MARYAM WO/W IVCON MRI ABDOMEN W/O & W/CONTRAST MATERIAL Mono Lan MD [address] [place] [address] Mr Imaging [place] [address] Referral ID Status Reason Start Date Expiration Date V isits Requested Visits Authorized [id number] Closed Auto-Generate d Referral 04/23/2024 06/22/2024 1 1 Specialty Diagnoses / Procedures Referred By Contac t Referred To Contact Rheumatology Diagnoses Cystic fibrosis (HCC) Procedures CONSULT TO RHEUMATOLOGY METABOLIC BONE OFFICE/OUTPATIENT NEW HIGH MDM 60-74 MINUTES Sally Schneider APRN.ACID CLEANER [address] [place] [address] Referral ID Status Reason Start Date Expiration Date Visits Requested Visits Authorized [id number] Authorized PCP Requested Referral 3 11/12/2024 1 1 Specialty Diagnoses / Procedures Referred By Contac t Referred To Contact Diagnoses Osteoporosis, unspecified osteoporosis type, unspecified pathological fracture presence Cystic fibrosis (HCC) Procedures CONSULT TO ENDO METABOLIC BONE OFFICE/OUTPATIENT [facility] 60-74 MINUTES She Pete, [address] [place] [address] Referral ID Status Reason Start Date Expiration Date Visits Requested Visits Authorized [id number] Authorized PCP Requested Referral 3 09/28/2024 1 1 Specialty Diagnoses / Procedures Referred By Contac t Referred To Contact Diagnoses Cystic fibrosis (HCC) Cystic fibrosis with pulmonary exacerbation (HCC) She Pete DO [address] [place] [address] Referral ID Status Reason Start Date Expiration Date Visits Re quested Visits Authorized [id number] Closed 1 1 Specialty Diagnoses / Procedures Referred By Contac t Referred To Contact [facility] Diagnoses Cystic fibrosis (HCC) Procedures SPIROMETRY BASELINE ONLY SPMTRY W/VC EXPIRATORY CRISTINA W/WO MXML VOL VNTJ She Pete DO [address] [place] [address] Respiratory [place] [address] [place] [address] Referral ID Status Reason Start Date Expiration Date Visits Requested Visits Authorized [id number] Authorized Auto-Generat ed Referral 03/19/2023 04/17/2024 1 1 Specialty Diagnoses / Procedures Referred By Contac t Referred To Contact Sally Schneider APRN.ACID CLEANER [address] [place] [address] Referral ID Status Reason Start Date Expiration Date Visits Re quested Visits Authorized [id number] Closed 1 1 Specialty Diagnoses / Procedures Referred By Contac t Referred To Contact Diagnoses Cystic fibrosis with pulmonary manifestations (HCC) Cystic fibrosis with liver disease (HCC) Procedures CONSULT TO HEPATOLOGY OFFICE/OUTPATIENT NEW HIGH MDM 60-74 MINUTES She Pete DO [address] [place] [address] Referral ID Status Reason Start Date Expiration Date Visits Requested Visits Authorized [id number] Authorized PCP Requested Referral 07/21/2022 07/21/2023 1 [...] DENSITY STUDY AXIAL SKELETON She Pete DO [address] [place] [address] Xr Imaging Referral ID Status Reason Start Date Expiration Date Visits Requested Visits Authorized [id number] Pending Review Auto-Generat ed Referral 07/21/2022 08/20/2023 [...] W/WO MXML VOL VNTJ She Pete DO [address] [place] [address] [facility] [address] [place] [id number] Referral ID Status Reason Start Date Expiration Date Visits Requested Visits Authorized [id number] Pending Review Auto-Generat ed Referral 07/21/2022 08/20/2023 [...] W/WOM-MODE COMPL SPEC&COLR D She Pete DO [address] [place] [address] [facility] [place] [address] [place] [id number] Referral ID Status Reason Start Date Expiration Date Visits Requested Visits Authorized [id number] Pending Review Auto-Generat ed Referral 07/21/2022 07/21/2023 [...] REAL TIME W/[place] [address] [place] [id number] [facility] Referral ID Status Reason Start Date Expiration Date Visits Requested Visits Authorized [id number] Pending Review Auto-Generat ed Referral 07/21/2022 08/20/2023 1 1 Specialty Diagnoses / Procedures Referred By Contac t Referred To Contact [facility] Diagnoses Cystic fibrosis with liver disease (HCC) Procedures DDI VIBRATION CONTROLLED TRANSIENT ELASTOGRAPHY (VCTE) LIVER ELASTOGRAPHY W/O IMAG W/I&[place] [address] [place] [address] [facility] [address] [place] [phone] Referral ID Status Reason Start Date Expiration Date Visits Requested Visits Authorized [id number] Pending Review Auto-Generat ed Referral 07/21/2022 07/21/2023 1 1 Specialty Diagnoses / Procedures Referred By Contac t [place] [address] [place] [id number] Referral ID Status Reason Start Date Expiration Date Visits Re quested Visits Authorized [id number] Closed 1 1 Chief Complaint and Reason [...] section and content) DATE CREATED AUTHOR 10/08/2018 [facility] DATE CREATED AUTHOR AUTHOR'S ORGANIZ ATION 05/15/2022 [facility] DATE CREATED AUTHOR AUTHOR'S ORGANIZ ATION 05/22/2022 [facility] DATE CREATED AUTHOR AUTHOR'S ORGANIZ ATION 07/16/2023 [facility] DATE CREATED AUTHOR AUTHOR'S ORGANIZ ATION 10/18/2024 [facility] DATE CREATED AUTHOR AUTHOR'S ORGANIZ ATION 02/16/2025 [facility] DATE CREATED AUTHOR AUTHOR'S ORGANIZ ATION 04/17/2025 [facility] Source Comments (unrecognize d section and content) In the event this informatio n is protected by the Federal Confidentiality of Alcohol and Drug Abuse Patient Records regulations: The Federal rules restrict any use of the information to criminally investigate or prosecute any alcohol or drug abuse patient.[facility] the event this information is protected by the Federal Confidentiality of Alcohol and Drug Abuse Patient Records regulations: The Federal rules restrict any use of the information to criminally investigate or prosecute any alcohol or drug abuse patient.[facility] the event this information is protected by the Federal Confidentiality of Alcohol and Drug Abuse Patient Records regulations: The Federal rules restrict any use of the information to criminally investigate or prosecute any alcohol or drug abuse patient.[facility] the event this information is protected by the Federal Confidentiality of Alcohol and Drug Abuse Patient Records regulations: The Federal rules restrict any use of the information to criminally investigate or prosecute any alcohol or drug abuse patient.[facility]In the event this information is protected by the Federal Confidentiality of Alcohol and Drug Abuse Patient Records regulations: The Federal rules restrict any use of the information to criminally investigate or prosecute any alcohol or drug abuse patient.[facility]In the event this information is protected by the Federal Confidentiality of Alcohol and Drug Abuse Patient Records regulations: The Federal rules restrict any use of the information to criminally investigate or prosecute any alcohol or drug abuse patient.[facility]In the event this information is protected by the Federal Confidentiality of Alcohol and Drug Abuse Patient Records regulations: The Federal rules restrict any use of the information to criminally investigate or prosecute any alcohol or drug abuse patient.[facility] the event this information is protected by the Federal Confidentiality of Alcohol and Drug Abuse Patient Records regulations: The Federal rules restrict any use of the information to criminally investigate or prosecute any alcohol or drug abuse patient.[facility]In the event this information is protected by the Federal Confidentiality of Alcohol and Drug Abuse Patient Records regulations: The Federal rules restrict any use of the information to criminally investigate or prosecute any alcohol or drug abuse patient.[facility] CenterIn the event this information is protected by the Federal Confidentiality of Alcohol and Drug Abuse Patient Records regulations: The Federal rules restrict any use of the information to criminally investigate or prosecute any alcohol or drug abuse patient.[facility] CenterIn the event this information is protected by the Federal Confidentiality of Alcohol and Drug Abuse Patient Records regulations: The Federal rules restrict any use of the information to criminally investigate or prosecute any alcohol or drug abuse patient.[facility] CenterIn the event this information is protected by the Federal Confidentiality of Alcohol and Drug Abuse Patient Records regulations: The Federal rules restrict any use of the information to criminally investigate or prosecute any alcohol or drug abuse patient.[facility] CenterIn the event this information is protected by the Federal Confidentiality of Alcohol and Drug Abuse Patient Records regulations: The Federal rules restrict any use of the information to criminally investigate or prosecute any alcohol or drug abuse patient.[facility] CenterIn the event this information is protected by the Federal Confidentiality of Alcohol and Drug Abuse Patient Records regulations: The Federal rules restrict any use of the information to criminally investigate or prosecute any alcohol or drug abuse patient.[facility] CenterIn the event this information is protected by the Federal Confidentiality of Alcohol and Drug Abuse Patient Records regulations: The Federal rules restrict any use of the information to criminally investigate or prosecute any alcohol or drug abuse patient.[facility] CenterIn the event this information is protected by the Federal Confidentiality of Alcohol and Drug Abuse Patient Records regulations: The Federal rules restrict any use of the information to criminally investigate or prosecute any alcohol or drug abuse patient.[facility] CenterIn the event this information is protected by the Federal Confidentiality of Alcohol and Drug Abuse Patient Records regulations: The Federal rules restrict any use of the information to criminally investigate or prosecute any alcohol or drug abuse patient.[facility] CenterIn the event this information is protected by the Federal Confidentiality of Alcohol and Drug Abuse Patient Records regulations: The Federal rules restrict any use of the information to criminally investigate or prosecute any alcohol or drug abuse patient.[facility] CenterIn the event this information is protected by the Federal Confidentiality of Alcohol and Drug Abuse Patient Records regulations: The Federal rules restrict any use of the information to criminally investigate or prosecute any alcohol or drug abuse patient.[facility] CenterIn the event this information is protected by the Federal Confidentiality of Alcohol and Drug Abuse Patient Records regulations: The Federal rules restrict any use of the information to criminally investigate or prosecute any alcohol or drug abuse patient.[facility] CenterIn the event this information is protected by the Federal Confidentiality of Alcohol and Drug Abuse Patient Records regulations: The Federal rules restrict any use of the information to criminally investigate or prosecute any alcohol or drug abuse patient.[facility] CenterIn the event this information is protected by the Federal Confidentiality of Alcohol and Drug Abuse Patient Records regulations: The Federal rules restrict any use of the information to criminally investigate or prosecute any alcohol or drug abuse patient.[facility] CenterIn the event this information is protected by the Federal Confidentiality of Alcohol and Drug Abuse Patient Records regulations: The Federal rules restrict any use of the information to criminally investigate or prosecute any alcohol or drug abuse patient.[facility] CenterIn the event this information is protected by the Federal Confidentiality of Alcohol and Drug Abuse Patient Records regulations: The Federal rules restrict any use of the information to criminally investigate or prosecute any alcohol or drug abuse patient.[facility] CenterIn the event this information is protected by the Federal Confidentiality of Alcohol and Drug Abuse Patient Records regulations: The Federal rules restrict any use of the information to criminally investigate or prosecute any alcohol or drug abuse patient.[facility] CenterIn the event this information is protected by the Federal Confidentiality of Alcohol and Drug Abuse Patient Records regulations: The Federal rules restrict any use of the information to criminally investigate or prosecute any alcohol or drug abuse patient.[facility] CenterIn the event this information is protected by the Federal Confidentiality of Alcohol and Drug Abuse Patient Records regulations: The Federal rules restrict any use of the information to criminally investigate or prosecute any alcohol or drug abuse patient.[facility] CenterIn the event this information is protected by the Federal Confidentiality of Alcohol and Drug Abuse Patient Records regulations: The Federal rules restrict any use of the information to criminally investigate or prosecute any alcohol or drug abuse patient.[facility] CenterIn the event this information is protected by the Federal Confidentiality of Alcohol and Drug Abuse Patient Records regulations: The Federal rules restrict any use of the information to criminally investigate or prosecute any alcohol or drug abuse patient.[facility] CenterIn the event this information is protected by the Federal Confidentiality of Alcohol and Drug Abuse Patient Records regulations: The Federal rules restrict any use of the information to criminally investigate or prosecute any alcohol or drug abuse patient.[facility] CenterIn the event this information is protected by the Federal Confidentiality of Alcohol and Drug Abuse Patient Records regulations: The Federal rules restrict any use of the information to criminally investigate or prosecute any alcohol or drug abuse patient.[facility] CenterIn the event this information is protected by the Federal Confidentiality of Alcohol and Drug Abuse Patient Records regulations: The Federal rules restrict any use of the information to criminally investigate or prosecute any alcohol or drug abuse patient.[facility] CenterIn the event this information is protected by the Federal Confidentiality of Alcohol and Drug Abuse Patient Records regulations: The Federal rules restrict any use of the information to criminally investigate or prosecute any alcohol or drug abuse patient.[facility] CenterIn the event this information is protected by the Federal Confidentiality of Alcohol and Drug Abuse Patient Records regulations: The Federal rules restrict any use of the information to criminally investigate or prosecute any alcohol or drug abuse patient.[facility] CenterIn the event this information is protected by the Federal Confidentiality of Alcohol and Drug Abuse Patient Records regulations: The Federal rules restrict any use of the information to criminally investigate or prosecute any alcohol or drug abuse patient.[facility] CenterIn the event this information is protected by the Federal Confidentiality of Alcohol and Drug Abuse Patient Records regulations: The Federal rules restrict any use of the information to criminally investigate or prosecute any alcohol or drug abuse patient.[facility] CenterIn the event this information is protected by the Federal Confidentiality of Alcohol and Drug Abuse Patient Records regulations: The Federal rules restrict any use of the information to criminally investigate or prosecute any alcohol or drug abuse patient.[facility] CenterIn the event this information is protected by the Federal Confidentiality of Alcohol and Drug Abuse Patient Records regulations: The Federal rules restrict any use of the information to criminally investigate or prosecute any alcohol or drug abuse patient.[facility] CenterIn the event this information is protected by the Federal Confidentiality of Alcohol and Drug Abuse Patient Records regulations: The Federal rules restrict any use of the information to criminally investigate or prosecute any alcohol or drug abuse patient.[facility] CenterIn the event this information is protected by the Federal Confidentiality of Alcohol and Drug Abuse Patient Records regulations: The Federal rules restrict any use of the information to criminally investigate or prosecute any alcohol or drug abuse patient.[facility] CenterIn the event this information is protected by the Federal Confidentiality of Alcohol and Drug Abuse Patient Records regulations: The Federal rules restrict any use of the information to criminally investigate or prosecute any alcohol or drug abuse patient.[facility] CenterIn the event this information is protected by the Federal Confidentiality of Alcohol and Drug Abuse Patient Records regulations: The Federal rules restrict any use of the information to criminally investigate or prosecute any alcohol or drug abuse patient.[facility] CenterIn the event this information is protected by the Federal Confidentiality of Alcohol and Drug Abuse Patient Records regulations: The Federal rules restrict any use of the information to criminally investigate or prosecute any alcohol or drug abuse patient.[facility] CenterIn the event this information is protected by the Federal Confidentiality of Alcohol and Drug Abuse Patient Records regulations: The Federal rules restrict any use of the information to criminally investigate or prosecute any alcohol or drug abuse patient.[facility] CenterIn the event this information is protected by the Federal Confidentiality of Alcohol and Drug Abuse Patient Records regulations: The Federal rules restrict any use of the information to criminally investigate or prosecute any alcohol or drug abuse patient.[facility] CenterIn the event this information is protected by the Federal Confidentiality of Alcohol and Drug Abuse Patient Records regulations: The Federal rules restrict any use of the information to criminally investigate or prosecute any alcohol or drug abuse patient.[facility] CenterIn the event this information is protected by the Federal Confidentiality of Alcohol and Drug Abuse Patient Records regulations: The Federal rules restrict any use of the information to criminally investigate or prosecute any alcohol or drug abuse patient.[facility] CenterIn the event this information is protected by the Federal Confidentiality of Alcohol and Drug Abuse Patient Records regulations: The Federal rules restrict any use of the information to criminally investigate or prosecute any alcohol or drug abuse patient.[facility] CenterIn the event this information is protected by the Federal Confidentiality of Alcohol and Drug Abuse Patient Records regulations: The Federal rules restrict any use of the information to criminally investigate or prosecute any alcohol or drug abuse patient.[facility]In the event this information is protected by the Federal Confidentiality of Alcohol and Drug Abuse Patient Records regulations: The Federal rules restrict any use of the information to criminally investigate or prosecute any alcohol or drug abuse patient.[facility]In the event this information is protected by the Federal Confidentiality of Alcohol and Drug Abuse Patient Records regulations: The Federal rules restrict any use of the information to criminally investigate or prosecute any alcohol or drug abuse patient.[facility]In the event this information is protected by the Federal Confidentiality of Alcohol and Drug Abuse Patient Records regulations: The Federal rules restrict any use of the information to criminally investigate or prosecute any alcohol or drug abuse patient.[facility]In the event this information is protected by the Federal Confidentiality of Alcohol and Drug Abuse Patient Records regulations: The Federal rules restrict any use of the information to criminally investigate or prosecute any alcohol or drug abuse patient.[facility] CenterIn the event this information is protected by the Federal Confidentiality of Alcohol and Drug Abuse Patient Records regulations: The Federal rules restrict any use of the information to criminally investigate or prosecute any alcohol or drug abuse patient.[facility] CenterIn the event this information is protected by the Federal Confidentiality of Alcohol and Drug Abuse Patient Records regulations: The Federal rules restrict any use of the information to criminally investigate or prosecute any alcohol or drug abuse patient.[facility] CenterIn the event this information is protected by the Federal Confidentiality of Alcohol and Drug Abuse Patient Records regulations: The Federal rules restrict any use of the information to criminally investigate or prosecute any alcohol or drug abuse patient.[facility] CenterIn the event this information is protected by the Federal Confidentiality of Alcohol and Drug Abuse Patient Records regulations: The Federal rules restrict any use of the information to criminally investigate or prosecute any alcohol or drug abuse patient.[facility] CenterIn the event this information is protected by the Federal Confidentiality of Alcohol and Drug Abuse Patient Records regulations: The Federal rules restrict any use of the information to criminally investigate or prosecute any alcohol or drug abuse patient.[facility] CenterIn the event this information is protected by the Federal Confidentiality of Alcohol and Drug Abuse Patient Records regulations: The Federal rules restrict any use of the information to criminally investigate or prosecute any alcohol or drug abuse patient.[facility] CenterIn the event this information is protected by the Federal Confidentiality of Alcohol and Drug Abuse Patient Records regulations: The Federal rules restrict any use of the information to criminally investigate or prosecute any alcohol or drug abuse patient.[facility] CenterIn the event this information is protected by the Federal Confidentiality of Alcohol and Drug Abuse Patient Records regulations: The Federal rules restrict any use of the information to criminally investigate or prosecute any alcohol or drug abuse patient.[facility] CenterIn the event this information is protected by the Federal Confidentiality of Alcohol and Drug Abuse Patient Records regulations: The Federal rules restrict any use of the information to criminally investigate or prosecute any alcohol or drug abuse patient.[facility] CenterIn the event this information is protected by the Federal Confidentiality of Alcohol and Drug Abuse Patient Records regulations: The Federal rules restrict any use of the information to criminally investigate or prosecute any alcohol or drug abuse patient.[facility]In the event this information is protected by the Federal Confidentiality of Alcohol and Drug Abuse Patient Records regulations: The Federal rules restrict any use of the information to criminally investigate or prosecute any alcohol or drug abuse patient.[facility]In the event this information is protected by the Federal Confidentiality of Alcohol and Drug Abuse Patient Records regulations: The Federal rules restrict any use of the information to criminally investigate or prosecute any alcohol or drug abuse patient.[facility]In the event this information is protected by the Federal Confidentiality of Alcohol and Drug Abuse Patient Records regulations: The Federal rules restrict any use of the information to criminally investigate or prosecute any alcohol or drug abuse patient.[facility]In the event this information is protected by the Federal Confidentiality of Alcohol and Drug Abuse Patient Records regulations: The Federal rules restrict any use of the information to criminally investigate or prosecute any alcohol or drug abuse patient.[facility] CenterIn the event this information is protected by the Federal Confidentiality of Alcohol and Drug Abuse Patient Records regulations: The Federal rules restrict any use of the information to criminally investigate or prosecute any alcohol or drug abuse patient.[facility]In the event this information is protected by the Federal Confidentiality of Alcohol and Drug Abuse Patient Records regulations: The Federal rules restrict any use of the information to criminally investigate or prosecute any alcohol or drug abuse patient.[facility] CenterIn the event this information is protected by the Federal Confidentiality of Alcohol and Drug Abuse Patient Records regulations: The Federal rules restrict any use of the information to criminally investigate or prosecute any alcohol or drug abuse patient.[facility] CenterIn the event this information is protected by the Federal Confidentiality of Alcohol and Drug Abuse Patient Records regulations: The Federal rules restrict any use of the information to criminally investigate or prosecute any alcohol or drug abuse patient.[facility] CenterIn the event this information is protected by the Federal Confidentiality of Alcohol and Drug Abuse Patient Records regulations: The Federal rules restrict any use of the information to criminally investigate or prosecute any alcohol or drug abuse patient.[facility] CenterIn the event this information is protected by the Federal Confidentiality of Alcohol and Drug Abuse Patient Records regulations: The Federal rules restrict any use of the information to criminally investigate or prosecute any alcohol or drug abuse patient.[facility] CenterIn the event this information is protected by the Federal Confidentiality of Alcohol and Drug Abuse Patient Records regulations: The Federal rules restrict any use of the information to criminally investigate or prosecute any alcohol or drug abuse patient.[facility] CenterIn the event this information is protected by the Federal Confidentiality of Alcohol and Drug Abuse Patient Records regulations: The Federal rules restrict any use of the information to criminally investigate or prosecute any alcohol or drug abuse patient.[facility] CenterIn the event this information is protected by the Federal Confidentiality of Alcohol and Drug Abuse Patient Records regulations: The Federal rules restrict any use of the information to criminally investigate or prosecute any alcohol or drug abuse patient.[facility] CenterIn the event this information is protected by the Federal Confidentiality of Alcohol and Drug Abuse Patient Records regulations: The Federal rules restrict any use of the information to criminally investigate or prosecute any alcohol or drug abuse patient.[facility] CenterIn the event this information is protected by the Federal Confidentiality of Alcohol and Drug Abuse Patient Records regulations: The Federal rules restrict any use of the information to criminally investigate or prosecute any alcohol or drug abuse patient.[facility] CenterIn the event this information is protected by the Federal Confidentiality of Alcohol and Drug Abuse Patient Records regulations: The Federal rules restrict any use of the information to criminally investigate or prosecute any alcohol or drug abuse patient.[facility] CenterIn the event this information is protected by the Federal Confidentiality of Alcohol and Drug Abuse Patient Records regulations: The Federal rules restrict any use of the information to criminally investigate or prosecute any alcohol or drug abuse patient.[facility] CenterIn the event this information is protected by the Federal Confidentiality of Alcohol and Drug Abuse Patient Records regulations: The Federal rules restrict any use of the information to criminally investigate or prosecute any alcohol or drug abuse patient.[facility] CenterIn the event this information is protected by the Federal Confidentiality of Alcohol and Drug Abuse Patient Records regulations: The Federal rules restrict any use of the information to criminally investigate or prosecute any alcohol or drug abuse patient.[facility] CenterIn the event this information is protected by the Federal Confidentiality of Alcohol and Drug Abuse Patient Records regulations: The Federal rules restrict any use of the information to criminally investigate or prosecute any alcohol or drug abuse patient.[facility] CenterIn the event this information is protected by the Federal Confidentiality of Alcohol and Drug Abuse Patient Records regulations: The Federal rules restrict any use of the information to criminally investigate or prosecute any alcohol or drug abuse patient.[facility] CenterIn the event this information is protected by the Federal Confidentiality of Alcohol and Drug Abuse Patient Records regulations: The Federal rules restrict any use of the information to criminally investigate or prosecute any alcohol or drug abuse patient.[facility] CenterIn the event this information is protected by the Federal Confidentiality of Alcohol and Drug Abuse Patient Records regulations: The Federal rules restrict any use of the information to criminally investigate or prosecute any alcohol or drug abuse patient.[facility] CenterIn the event this information is protected by the Federal Confidentiality of Alcohol and Drug Abuse Patient Records regulations: The Federal rules restrict any use of the information to criminally investigate or prosecute any alcohol or drug abuse patient.[facility] CenterIn the event this information is protected by the Federal Confidentiality of Alcohol and Drug Abuse Patient Records regulations: The Federal rules restrict any use of the information to criminally investigate or prosecute any alcohol or drug abuse patient.[facility] CenterIn the event this information is protected by the Federal Confidentiality of Alcohol and Drug Abuse Patient Records regulations: The Federal rules restrict any use of the information to criminally investigate or prosecute any alcohol or drug abuse patient.[facility] CenterIn the event this information is protected by the Federal Confidentiality of Alcohol and Drug Abuse Patient Records regulations: The Federal rules restrict any use of the information to criminally investigate or prosecute any alcohol or drug abuse patient.[facility] CenterIn the event this information is protected by the Federal Confidentiality of Alcohol and Drug Abuse Patient Records regulations: The Federal rules restrict any use of the information to criminally investigate or prosecute any alcohol or drug abuse patient.[facility] CenterIn the event this information is protected by the Federal Confidentiality of Alcohol and Drug Abuse Patient Records regulations: The Federal rules restrict any use of the information to criminally investigate or prosecute any alcohol or drug abuse patient.[facility] CenterIn the event this information is protected by the Federal Confidentiality of Alcohol and Drug Abuse Patient Records regulations: The Federal rules restrict any use of the information to criminally investigate or prosecute any alcohol or drug abuse patient.[facility] CenterIn the event this information is protected by the Federal Confidentiality of Alcohol and Drug Abuse Patient Records regulations: The Federal rules restrict any use of the information to criminally investigate or prosecute any alcohol or drug abuse patient.[facility] CenterIn the event this information is protected by the Federal Confidentiality of Alcohol and Drug Abuse Patient Records regulations: The Federal rules restrict any use of the information to criminally investigate or prosecute any alcohol or drug abuse patient.[facility] CenterIn the event this information is protected by the Federal Confidentiality of Alcohol and Drug Abuse Patient Records regulations: The Federal rules restrict any use of the information to criminally investigate or prosecute any alcohol or drug abuse patient.[facility] CenterIn the event this information is protected by the Federal Confidentiality of Alcohol and Drug Abuse Patient Records regulations: The Federal rules restrict any use of the information to criminally investigate or prosecute any alcohol or drug abuse patient.[facility] CenterIn the event this information is protected by the Federal Confidentiality of Alcohol and Drug Abuse Patient Records regulations: The Federal rules restrict any use of the information to criminally investigate or prosecute any alcohol or drug abuse patient.[facility] CenterIn the event this information is protected by the Federal Confidentiality of Alcohol and Drug Abuse Patient Records regulations: The Federal rules restrict any use of the information to criminally investigate or prosecute any alcohol or drug abuse patient.[facility] CenterIn the event this information is protected by the Federal Confidentiality of Alcohol and Drug Abuse Patient Records regulations: The Federal rules restrict any use of the information to criminally investigate or prosecute any alcohol or drug abuse patient.[facility] CenterIn the event this information is protected by the Federal Confidentiality of Alcohol and Drug Abuse Patient Records regulations: The Federal rules restrict any use of the information to criminally investigate or prosecute any alcohol or drug abuse patient.[facility]In the event this information is protected by the Federal Confidentiality of Alcohol and Drug Abuse Patient Records regulations: The Federal rules restrict any use of the information to criminally investigate or prosecute any alcohol or drug abuse patient.[facility]In the event this information is protected by the Federal Confidentiality of Alcohol and Drug Abuse Patient Records regulations: The Federal rules restrict any use of the information to criminally investigate or prosecute any alcohol or drug abuse patient.[facility]In the event this information is protected by the Federal Confidentiality of Alcohol and Drug Abuse Patient Records regulations: The Federal rules restrict any use of the information to criminally investigate or prosecute any alcohol or drug abuse patient.[facility]In the event this information is protected by the Federal Confidentiality of Alcohol and Drug Abuse Patient Records regulations: The Federal rules restrict any use of the information to criminally investigate or prosecute any alcohol or drug abuse patient.[facility] CenterIn the event this information is protected by the Federal Confidentiality of Alcohol and Drug Abuse Patient Records regulations: The Federal rules restrict any use of the information to criminally investigate or prosecute any alcohol or drug abuse patient.[facility] CenterIn the event this information is protected by the Federal Confidentiality of Alcohol and Drug Abuse Patient Records regulations: The Federal rules restrict any use of the information to criminally investigate or prosecute any alcohol or drug abuse patient.[facility]In the event this information is protected by the Federal Confidentiality of Alcohol and Drug Abuse Patient Records regulations: The Federal rules restrict any use of the information to criminally investigate or prosecute any alcohol or drug abuse patient.[facility]In the event this information is protected by the Federal Confidentiality of Alcohol and Drug Abuse Patient Records regulations: The Federal rules restrict any use of the information to criminally investigate or prosecute any alcohol or drug abuse patient.[facility]In the event this information is protected by the Federal Confidentiality of Alcohol and Drug Abuse Patient Records regulations: The Federal rules restrict any use of the information to criminally investigate or prosecute any alcohol or drug abuse patient.[facility]In the event this information is protected by the Federal Confidentiality of Alcohol and Drug Abuse Patient Records regulations: The Federal rules restrict any use of the information to criminally investigate or prosecute any alcohol or drug abuse patient.[facility]In the event this information is protected by the Federal Confidentiality of Alcohol and Drug Abuse Patient Records regulations: The Federal rules restrict any use of the information to criminally investigate or prosecute any alcohol or drug abuse patient.[facility]In the event this information is protected by the Federal Confidentiality of Alcohol and Drug Abuse Patient Records regulations: The Federal rules restrict any use of the information to criminally investigate or prosecute any alcohol or drug abuse patient.[facility]In the event this information is protected by the Federal Confidentiality of Alcohol and Drug Abuse Patient Records regulations: The Federal rules restrict any use of the information to criminally investigate or prosecute any alcohol or drug abuse patient.[facility]In the event this information is protected by the Federal Confidentiality of Alcohol and Drug Abuse Patient Records regulations: The Federal rules restrict any use of the information to criminally investigate or prosecute any alcohol or drug abuse patient.[facility]In the event this information is protected by the Federal Confidentiality of Alcohol and Drug Abuse Patient Records regulations: The Federal rules restrict any use of the information to criminally investigate or prosecute any alcohol or drug abuse patient.[facility]In the event this information is protected by the Federal Confidentiality of Alcohol and Drug Abuse Patient Records regulations: The Federal rules restrict any use of the information to criminally investigate or prosecute any alcohol or drug abuse patient.[facility]In the event this information is protected by the Federal Confidentiality of Alcohol and Drug Abuse Patient Records regulations: The Federal rules restrict any use of the information to criminally investigate or prosecute any alcohol or drug abuse patient.[facility]In the event this information is protected by the Federal Confidentiality of Alcohol and Drug Abuse Patient Records regulations: The Federal rules restrict any use of the information to criminally investigate or prosecute any alcohol or drug abuse patient.[facility]In the event this information is protected by the Federal Confidentiality of Alcohol and Drug Abuse Patient Records regulations: The Federal rules restrict any use of the information to criminally investigate or prosecute any alcohol or drug abuse patient.[facility]In the event this information is protected by the Federal Confidentiality of Alcohol and Drug Abuse Patient Records regulations: The Federal rules restrict any use of the information to criminally investigate or prosecute any alcohol or drug abuse patient.[facility]In the event this information is protected by the Federal Confidentiality of Alcohol and Drug Abuse Patient Records regulations: The Federal rules restrict any use of the information to criminally investigate or prosecute any alcohol or drug abuse patient.[facility]In the event this information is protected by the Federal Confidentiality of Alcohol and Drug Abuse Patient Records regulations: The Federal rules restrict any use of the information to criminally investigate or prosecute any alcohol or drug abuse patient.[facility]In the event this information is protected by the Federal Confidentiality of Alcohol and Drug Abuse Patient Records regulations: The Federal rules restrict any use of the information to criminally investigate or prosecute any alcohol or drug abuse patient.[facility]In the event this information is protected by the Federal Confidentiality of Alcohol and Drug Abuse Patient Records regulations: The Federal rules restrict any use of the information to criminally investigate or prosecute any alcohol or drug abuse patient.[facility]In the event this information is protected by the Federal Confidentiality of Alcohol and Drug Abuse Patient Records regulations: The Federal rules restrict any use of the information to criminally investigate or prosecute any alcohol or drug abuse patient.[facility]In the event this information is protected by the Federal Confidentiality of Alcohol and Drug Abuse Patient Records regulations: The Federal rules restrict any use of the information to criminally investigate or prosecute any alcohol or drug abuse patient.[facility]In the event this information is protected by the Federal Confidentiality of Alcohol and Drug Abuse Patient Records regulations: The Federal rules restrict any use of the information to criminally investigate or prosecute any alcohol or drug abuse patient.[facility]In the event this information is protected by the Federal Confidentiality of Alcohol and Drug Abuse Patient Records regulations: The Federal rules restrict any use of the information to criminally investigate or prosecute any alcohol or drug abuse patient.[facility]In the event this information is protected by the Federal Confidentiality of Alcohol and Drug Abuse Patient Records regulations: The Federal rules restrict any use of the information to criminally investigate or prosecute any alcohol or drug abuse patient.[facility]In the event this information is protected by the Federal Confidentiality of Alcohol and Drug Abuse Patient Records regulations: The Federal rules restrict any use of the information to criminally investigate or prosecute any alcohol or drug abuse patient.[facility]In the event this information is protected by the Federal Confidentiality of Alcohol and Drug Abuse Patient Records regulations: The Federal rules restrict any use of the information to criminally investigate or prosecute any alcohol or drug abuse patient.[facility]In the event this information is protected by the Federal Confidentiality of Alcohol and Drug Abuse Patient Records regulations: The Federal rules restrict any use of the information to criminally investigate or prosecute any alcohol or drug abuse patient.[facility]In the event this information is protected by the Federal Confidentiality of Alcohol and Drug Abuse Patient Records regulations: The Federal rules restrict any use of the information to criminally investigate or prosecute any alcohol or drug abuse patient.[facility]In the event this information is protected by the Federal Confidentiality of Alcohol and Drug Abuse Patient Records regulations: The Federal rules restrict any use of the information to criminally investigate or prosecute any alcohol or drug abuse patient.[facility]In the event this information is protected by the Federal Confidentiality of Alcohol and Drug Abuse Patient Records regulations: The Federal rules restrict any use of the information to criminally investigate or prosecute any alcohol or drug abuse patient.[facility]In the event this information is protected by the Federal Confidentiality of Alcohol and Drug Abuse Patient Records regulations: The Federal rules restrict any use of the information to criminally investigate or prosecute any alcohol or drug abuse patient.[facility]In the event this information is protected by the Federal Confidentiality of Alcohol and Drug Abuse Patient Records regulations: The Federal rules restrict any use of the information to criminally investigate or prosecute any alcohol or drug abuse patient.[facility]In the event this information is protected by the Federal Confidentiality of Alcohol and Drug Abuse Patient Records regulations: The Federal rules restrict any use of the information to criminally investigate or prosecute any alcohol or drug abuse patient.[facility]In the event this information is protected by the Federal Confidentiality of Alcohol and Drug Abuse Patient Records regulations: The Federal rules restrict any use of the information to criminally investigate or prosecute any alcohol or drug abuse patient.[facility]In the event this information is protected by the Federal Confidentiality of Alcohol and Drug Abuse Patient Records regulations: The Federal rules restrict any use of the information to criminally investigate or prosecute any alcohol or drug abuse patient.[facility]In the event this information is protected by the Federal Confidentiality of Alcohol and Drug Abuse Patient Records regulations: The Federal rules restrict any use of the information to criminally investigate or prosecute any alcohol or drug abuse patient.[facility]In the event this information is protected by the Federal Confidentiality of Alcohol and Drug Abuse Patient Records regulations: The Federal rules restrict any use of the information to criminally investigate or prosecute any alcohol or drug abuse patient.[facility]In the event this information is protected by the Federal Confidentiality of Alcohol and Drug Abuse Patient Records regulations: The Federal rules restrict any use of the information to criminally investigate or prosecute any alcohol or drug abuse patient.[facility]In the event this information is protected by the Federal Confidentiality of Alcohol and Drug Abuse Patient Records regulations: The Federal rules restrict any use of the information to criminally investigate or prosecute any alcohol or drug abuse patient.[facility]In the event this information is protected by the Federal Confidentiality of Alcohol and Drug Abuse Patient Records regulations: The Federal rules restrict any use of the information to criminally investigate or prosecute any alcohol or drug abuse patient.[facility]In the event this information is protected by the Federal Confidentiality of Alcohol and Drug Abuse Patient Records regulations: The Federal rules restrict any use of the information to criminally investigate or prosecute any alcohol or drug abuse patient.[facility] CenterIn the event this information is protected by the Federal Confidentiality of Alcohol and Drug Abuse Patient Records regulations: The Federal rules restrict any use of the information to criminally investigate or prosecute any alcohol or drug abuse patient.[facility] CenterIn the event this information is protected by the Federal Confidentiality of Alcohol and Drug Abuse Patient Records regulations: The Federal rules restrict any use of the information to criminally investigate or prosecute any alcohol or drug abuse patient.[facility] CenterIn the event this information is protected by the Federal Confidentiality of Alcohol and Drug Abuse Patient Records regulations: The Federal rules restrict any use of the information to criminally investigate or prosecute any alcohol or drug abuse patient.[facility] CenterIn the event this information is protected by the Federal Confidentiality of Alcohol and Drug Abuse Patient Records regulations: The Federal rules restrict any use of the information to criminally investigate or prosecute any alcohol or drug abuse patient.[facility] CenterIn the event this information is protected by the Federal Confidentiality of Alcohol and Drug Abuse Patient Records regulations: The Federal rules restrict any use of the information to criminally investigate or prosecute any alcohol or drug abuse patient.[facility] CenterIn the event this information is protected by the Federal Confidentiality of Alcohol and Drug Abuse Patient Records regulations: The Federal rules restrict any use of the information to criminally investigate or prosecute any alcohol or drug abuse patient.[facility] CenterIn the event this information is protected by the Federal Confidentiality of Alcohol and Drug Abuse Patient Records regulations: The Federal rules restrict any use of the information to criminally investigate or prosecute any alcohol or drug abuse patient.[facility] CenterIn the event this information is protected by the Federal Confidentiality of Alcohol and Drug Abuse Patient Records regulations: The Federal rules restrict any use of the information to criminally investigate or prosecute any alcohol or drug abuse patient.[facility] CenterIn the event this information is protected by the Federal Confidentiality of Alcohol and Drug Abuse Patient Records regulations: The Federal rules restrict any use of the information to criminally investigate or prosecute any alcohol or drug abuse patient.[facility] CenterIn the event this information is protected by the Federal Confidentiality of Alcohol and Drug Abuse Patient Records regulations: The Federal rules restrict any use of the information to criminally investigate or prosecute any alcohol or drug abuse patient.[facility] CenterIn the event this information is protected by the Federal Confidentiality of Alcohol and Drug Abuse Patient Records regulations: The Federal rules restrict any use of the information to criminally investigate or prosecute any alcohol or drug abuse patient.[facility] CenterIn the event this information is protected by the Federal Confidentiality of Alcohol and Drug Abuse Patient Records regulations: The Federal rules restrict any use of the information to criminally investigate or prosecute any alcohol or drug abuse patient.[facility] CenterIn the event this information is protected by the Federal Confidentiality of Alcohol and Drug Abuse Patient Records regulations: The Federal rules restrict any use of the information to criminally investigate or prosecute any alcohol or drug abuse patient.[facility] CenterIn the event this information is protected by the Federal Confidentiality of Alcohol and Drug Abuse Patient Records regulations: The Federal rules restrict any use of the information to criminally investigate or prosecute any alcohol or drug abuse patient.[facility] CenterIn the event this information is protected by the Federal Confidentiality of Alcohol and Drug Abuse Patient Records regulations: The Federal rules restrict any use of the information to criminally investigate or prosecute any alcohol or drug abuse patient.[facility] CenterIn the event this information is protected by the Federal Confidentiality of Alcohol and Drug Abuse Patient Records regulations: The Federal rules restrict any use of the information to criminally investigate or prosecute any alcohol or drug abuse patient.[facility] CenterIn the event this information is protected by the Federal Confidentiality of Alcohol and Drug Abuse Patient Records regulations: The Federal rules restrict any use of the information to criminally investigate or prosecute any alcohol or drug abuse patient.[facility] CenterIn the event this information is protected by the Federal Confidentiality of Alcohol and Drug Abuse Patient Records regulations: The Federal rules restrict any use of the information to criminally investigate or prosecute any alcohol or drug abuse patient.[facility] CenterIn the event this information is protected by the Federal Confidentiality of Alcohol and Drug Abuse Patient Records regulations: The Federal rules restrict any use of the information to criminally investigate or prosecute any alcohol or drug abuse patient.[facility] CenterIn the event this information is protected by the Federal Confidentiality of Alcohol and Drug Abuse Patient Records regulations: The Federal rules restrict any use of the information to criminally investigate or prosecute any alcohol or drug abuse patient.[facility] CenterIn the event this information is protected by the Federal Confidentiality of Alcohol and Drug Abuse Patient Records regulations: The Federal rules restrict any use of the information to criminally investigate or prosecute any alcohol or drug abuse patient.[facility] CenterIn the event this information is protected by the Federal Confidentiality of Alcohol and Drug Abuse Patient Records regulations: The Federal rules restrict any use of the information to criminally investigate or prosecute any alcohol or drug abuse patient.[facility] CenterIn the event this information is protected by the Federal Confidentiality of Alcohol and Drug Abuse Patient Records regulations: The Federal rules restrict any use of the information to criminally investigate or prosecute any alcohol or drug abuse patient.[facility] CenterIn the event this information is protected by the Federal Confidentiality of Alcohol and Drug Abuse Patient Records regulations: The Federal rules restrict any use of the information to criminally investigate or prosecute any alcohol or drug abuse patient.[facility] CenterIn the event this information is protected by the Federal Confidentiality of Alcohol and Drug Abuse Patient Records regulations: The Federal rules restrict any use of the information to criminally investigate or prosecute any alcohol or drug abuse patient.[facility] CenterIn the event this information is protected by the Federal Confidentiality of Alcohol and Drug Abuse Patient Records regulations: The Federal rules restrict any use of the information to criminally investigate or prosecute any alcohol or drug abuse patient.[facility] CenterIn the event this information is protected by the Federal Confidentiality of Alcohol and Drug Abuse Patient Records regulations: The Federal rules restrict any use of the information to criminally investigate or prosecute any alcohol or drug abuse patient.[facility] CenterIn the event this information is protected by the Federal Confidentiality of Alcohol and Drug Abuse Patient Records regulations: The Federal rules restrict any use of the information to criminally investigate or prosecute any alcohol or drug abuse patient.[facility] CenterIn the event this information is protected by the Federal Confidentiality of Alcohol and Drug Abuse Patient Records regulations: The Federal rules restrict any use of the information to criminally investigate or prosecute any alcohol or drug abuse patient.[facility] CenterIn the event this information is protected by the Federal Confidentiality of Alcohol and Drug Abuse Patient Records regulations: The Federal rules restrict any use of the information to criminally investigate or prosecute any alcohol or drug abuse patient.[facility] CenterIn the event this information is protected by the Federal Confidentiality of Alcohol and Drug Abuse Patient Records regulations: The Federal rules restrict any use of the information to criminally investigate or prosecute any alcohol or drug abuse patient.[facility] CenterIn the event this information is protected by the Federal Confidentiality of Alcohol and Drug Abuse Patient Records regulations: The Federal rules restrict any use of the information to criminally investigate or prosecute any alcohol or drug abuse patient.[facility] CenterIn the event this information is protected by the Federal Confidentiality of Alcohol and Drug Abuse Patient Records regulations: The Federal rules restrict any use of the information to criminally investigate or prosecute any alcohol or drug abuse patient.[facility] CenterIn the event this information is protected by the Federal Confidentiality of Alcohol and Drug Abuse Patient Records regulations: The Federal rules restrict any use of the information to criminally investigate or prosecute any alcohol or drug abuse patient.[facility] CenterIn the event this information is protected by the Federal Confidentiality of Alcohol and Drug Abuse Patient Records regulations: The Federal rules restrict any use of the information to criminally investigate or prosecute any alcohol or drug abuse patient.[facility]In the event this information is protected by the Federal Confidentiality of Alcohol and Drug Abuse Patient Records regulations: The Federal rules restrict any use of the information to criminally investigate or prosecute any alcohol or drug abuse patient.[facility]In the event this information is protected by the Federal Confidentiality of Alcohol and Drug Abuse Patient Records regulations: The Federal rules restrict any use of the information to criminally investigate or prosecute any alcohol or drug abuse patient.[facility]In the event this information is protected by the Federal Confidentiality of Alcohol and Drug Abuse Patient Records regulations: The Federal rules restrict any use of the information to criminally investigate or prosecute any alcohol or drug abuse patient.[facility]In the event this information is protected by the Federal Confidentiality of Alcohol and Drug Abuse Patient Records regulations: The Federal rules restrict any use of the information to criminally investigate or prosecute any alcohol or drug abuse patient.[facility]In the event this information is protected by the Federal Confidentiality of Alcohol and Drug Abuse Patient Records regulations: The Federal rules restrict any use of the information to criminally investigate or prosecute any alcohol or drug abuse patient.[facility]In the event this information is protected by the Federal Confidentiality of Alcohol and Drug Abuse Patient Records regulations: The Federal rules restrict any use of the information to criminally investigate or prosecute any alcohol or drug abuse patient.[facility]In the event this information is protected by the Federal Confidentiality of Alcohol and Drug Abuse Patient Records regulations: The Federal rules restrict any use of the information to criminally investigate or prosecute any alcohol or drug abuse patient.[facility]In the event this information is protected by the Federal Confidentiality of Alcohol and Drug Abuse Patient Records regulations: The Federal rules restrict any use of the information to criminally investigate or prosecute any alcohol or drug abuse patient.[facility]In the event this information is protected by the Federal Confidentiality of Alcohol and Drug Abuse Patient Records regulations: The Federal rules restrict any use of the information to criminally investigate or prosecute any alcohol or drug abuse patient.[facility]In the event this information is protected by the Federal Confidentiality of Alcohol and Drug Abuse Patient Records regulations: The Federal rules restrict any use of the information to criminally investigate or prosecute any alcohol or drug abuse patient.[facility]In the event this information is protected by the Federal Confidentiality of Alcohol and Drug Abuse Patient Records regulations: The Federal rules restrict any use of the information to criminally investigate or prosecute any alcohol or drug abuse patient.[facility]In the event this information is protected by the Federal Confidentiality of Alcohol and Drug Abuse Patient Records regulations: The Federal rules restrict any use of the information to criminally investigate or prosecute any alcohol or drug abuse patient.[facility]In the event this information is protected by the Federal Confidentiality of Alcohol and Drug Abuse Patient Records regulations: The Federal rules restrict any use of the information to criminally investigate or prosecute any alcohol or drug abuse patient.[facility]In the event this information is protected by the Federal Confidentiality of Alcohol and Drug Abuse Patient Records regulations: The Federal rules restrict any use of the information to criminally investigate or prosecute any alcohol or drug abuse patient.[facility]In the event this information is protected by the Federal Confidentiality of Alcohol and Drug Abuse Patient Records regulations: The Federal rules restrict any use of the information to criminally investigate or prosecute any alcohol or drug abuse patient.[facility]In the event this information is protected by the Federal Confidentiality of Alcohol and Drug Abuse Patient Records regulations: The Federal rules restrict any use of the information to criminally investigate or prosecute any alcohol or drug abuse patient.[facility]In the event this information is protected by the Federal Confidentiality of Alcohol and Drug Abuse Patient Records regulations: The Federal rules restrict any use of the information to criminally investigate or prosecute any alcohol or drug abuse patient.[facility]In the event this information is protected by the Federal Confidentiality of Alcohol and Drug Abuse Patient Records regulations: The Federal rules restrict any use of the information to criminally investigate or prosecute any alcohol or drug abuse patient.[facility]In the event this information is protected by the Federal Confidentiality of Alcohol and Drug Abuse Patient Records regulations: The Federal rules restrict any use of the information to criminally investigate or prosecute any alcohol or drug abuse patient.[facility]In the event this information is protected by the Federal Confidentiality of Alcohol and Drug Abuse Patient Records regulations: The Federal rules restrict any use of the information to criminally investigate or prosecute any alcohol or drug abuse patient.[facility]In the event this information is protected by the Federal Confidentiality of Alcohol and Drug Abuse Patient Records regulations: The Federal rules restrict any use of the information to criminally investigate or prosecute any alcohol or drug abuse patient.[facility]In the event this information is protected by the Federal Confidentiality of Alcohol and Drug Abuse Patient Records regulations: The Federal rules restrict any use of the information to criminally investigate or prosecute any alcohol or drug abuse patient.[facility]In the event this information is protected by the Federal Confidentiality of Alcohol and Drug Abuse Patient Records regulations: The Federal rules restrict any use of the information to criminally investigate or prosecute any alcohol or drug abuse patient.[facility]In the event this information is protected by the Federal Confidentiality of Alcohol and Drug Abuse Patient Records regulations: The Federal rules restrict any use of the information to criminally investigate or prosecute any alcohol or drug abuse patient.[facility]In the event this information is protected by the Federal Confidentiality of Alcohol and Drug Abuse Patient Records regulations: The Federal rules restrict any use of the information to criminally investigate or prosecute any alcohol or drug abuse patient.[facility]In the event this information is protected by the Federal Confidentiality of Alcohol and Drug Abuse Patient Records regulations: The Federal rules restrict any use of the information to criminally investigate or prosecute any alcohol or drug abuse patient.[facility]In the event this information is protected by the Federal Confidentiality of Alcohol and Drug Abuse Patient Records regulations: The Federal rules restrict any use of the information to criminally investigate or prosecute any alcohol or drug abuse patient.[facility]In the event this information is protected by the Federal Confidentiality of Alcohol and Drug Abuse Patient Records regulations: The Federal rules restrict any use of the information to criminally investigate or prosecute any alcohol or drug abuse patient.[facility]In the event this information is protected by the Federal Confidentiality of Alcohol and Drug Abuse Patient Records regulations: The Federal rules restrict any use of the information to criminally investigate or prosecute any alcohol or drug abuse patient.[facility]In the event this information is protected by the Federal Confidentiality of Alcohol and Drug Abuse Patient Records regulations: The Federal rules restrict any use of the information to criminally investigate or prosecute any alcohol or drug abuse patient.[facility]In the event this information is protected by the Federal Confidentiality of Alcohol and Drug Abuse Patient Records regulations: The Federal rules restrict any use of the information to criminally investigate or prosecute any alcohol or drug abuse patient.[facility]In the event this information is protected by the Federal Confidentiality of Alcohol and Drug Abuse Patient Records regulations: The Federal rules restrict any use of the information to criminally investigate or prosecute any alcohol or drug abuse patient.[facility]In the event this information is protected by the Federal Confidentiality of Alcohol and Drug Abuse Patient Records regulations: The Federal rules restrict any use of the information to criminally investigate or prosecute any alcohol or drug abuse patient.[facility]In the event this information is protected by the Federal Confidentiality of Alcohol and Drug Abuse Patient Records regulations: The Federal rules restrict any use of the information to criminally investigate or prosecute any alcohol or drug abuse patient.[facility]In the event this information is protected by the Federal Confidentiality of Alcohol and Drug Abuse Patient Records regulations: The Federal rules restrict any use of the information to criminally investigate or prosecute any alcohol or drug abuse patient.[facility]In the event this information is protected by the Federal Confidentiality of Alcohol and Drug Abuse Patient Records regulations: The Federal rules restrict any use of the information to criminally investigate or prosecute any alcohol or drug abuse patient.[facility]In the event this information is protected by the Federal Confidentiality of Alcohol and Drug Abuse Patient Records regulations: The Federal rules restrict any use of the information to criminally investigate or prosecute any alcohol or drug abuse patient.[facility]In the event this information is protected by the Federal Confidentiality of Alcohol and Drug Abuse Patient Records regulations: The Federal rules restrict any use of the information to criminally investigate or prosecute any alcohol or drug abuse patient.[facility]In the event this information is protected by the Federal Confidentiality of Alcohol and Drug Abuse Patient Records regulations: The Federal rules restrict any use of the information to criminally investigate or prosecute any alcohol or drug abuse patient.[facility]In the event this information is protected by the Federal Confidentiality of Alcohol and Drug Abuse Patient Records regulations: The Federal rules restrict any use of the information to criminally investigate or prosecute any alcohol or drug abuse patient.[facility]In the event this information is protected by the Federal Confidentiality of Alcohol and Drug Abuse Patient Records regulations: The Federal rules restrict any use of the information to criminally investigate or prosecute any alcohol or drug abuse patient.[facility]In the event this information is protected by the Federal Confidentiality of Alcohol and Drug Abuse Patient Records regulations: The Federal rules restrict any use of the information to criminally investigate or prosecute any alcohol or drug abuse patient.[facility]In the event this information is protected by the Federal Confidentiality of Alcohol and Drug Abuse Patient Records regulations: The Federal rules restrict any use of the information to criminally investigate or prosecute any alcohol or drug abuse patient.[facility]In the event this information is protected by the Federal Confidentiality of Alcohol and Drug Abuse Patient Records regulations: The Federal rules restrict any use of the information to criminally investigate or prosecute any alcohol or drug abuse patient.[facility] CenterIn the event this information is protected by the Federal Confidentiality of Alcohol and Drug Abuse Patient Records regulations: The Federal rules restrict any use of the information to criminally investigate or prosecute any alcohol or drug abuse patient.[facility] CenterIn the event this information is protected by the Federal Confidentiality of Alcohol and Drug Abuse Patient Records regulations: The Federal rules restrict any use of the information to criminally investigate or prosecute any alcohol or drug abuse patient.[facility] CenterIn the event this information is protected by the Federal Confidentiality of Alcohol and Drug Abuse Patient Records regulations: The Federal rules restrict any use of the information to criminally investigate or prosecute any alcohol or drug abuse patient.[facility] CenterIn the event this information is protected by the Federal Confidentiality of Alcohol and Drug Abuse Patient Records regulations: The Federal rules restrict any use of the information to criminally investigate or prosecute any alcohol or drug abuse patient.[facility] CenterIn the event this information is protected by the Federal Confidentiality of Alcohol and Drug Abuse Patient Records regulations: The Federal rules restrict any use of the information to criminally investigate or prosecute any alcohol or drug abuse patient.[facility] CenterIn the event this information is protected by the Federal Confidentiality of Alcohol and Drug Abuse Patient Records regulations: The Federal rules restrict any use of the information to criminally investigate or prosecute any alcohol or drug abuse patient.[facility] CenterIn the event this information is protected by the Federal Confidentiality of Alcohol and Drug Abuse Patient Records regulations: The Federal rules restrict any use of the information to criminally investigate or prosecute any alcohol or drug abuse patient.[facility] Reason for Visit (unrecogniz ed section and content) Reason Comments Spirometry Specialty Diagnoses / Procedures Referred By Contac t Referred To Contact [facility] Diagnoses Cystic fibrosis with pulmonary manifestations (HCC) Procedures SPIROMETRY BASELINE ONLY SPMTRY W/VC EXPIRATORY CRISTINA W/WO MXML VOL VNTJ Alex Pinon MD [address] [place] [address] [address] [place] [place] [address] Referral ID Status Reason Start Date Expiration Date V isits Requested Visits Authorized [id number] Closed Auto-Generate d Referral 11/12/2023 12/11/2024 1 1 Reason Comments Recheck Specialty Diagnoses / Procedures Referred By Contac t Referred To Contact HOSP INPATIENT Diagnoses Cystic fibrosis exacerbation (HCC) Cystic fibrosis with pulmonary exacerbation (HCC) Procedures [facility] IP[facility]BS [facility] HIGH MDM 75 MINUTES Hosp Main J[address] [place] [address] Referral ID Status Reason Start Date Expiration Date Visits Re quested Visits Authorized [id number] 1 1 Specialty Diagnoses / Procedures Referred By Contac t Referred To Contact Diagnoses Cystic fibrosis with pulmonary manifestations cf Procedures [facility] HIGH MDM 75 MINUTES IV Antibiotics Hosp Main Prea [address] [place] [address] Referral ID Status Reason Start Date Expiration Date Visits Re quested Visits Authorized [id number] 1 1 Reason Comments New CF Referral Reason Comments Emesis Tachycardia Specialty Diagnoses / Procedures Referred By Contac t Referred To Contact General Care Diagnoses Cystic fibrosis Intractable nausea and vomiting Acute kidney [place] [address] Referral ID Status Reason Start Date Expiration Date Visits Re quested Visits Authorized [id number] 1 1 Reason Comments Cystic Fibrosis Specialty Diagnoses / Procedures Referred By Contac t Referred To Contact [facility] Diagnoses Cystic Fibrosis Procedures REFERRAL TO [facility] FINANCIAL COUNSELOR DE NEW CYSTIC FIBROSIS She Pete DO [address] [place] [address] [facility] [place] [address] [place] [address] Referral ID Status Reason Start Date Expiration Date Visits Requested Visits Authorized [id number] Pending Review Financial Clearance Required - OON Payor 2022 10/15/2022 1 1 Reason Comments Coughing Up Blood Reason Comments CoPat Start Reason Comments CoPat Agency Reason Comments Outside Lab Results copat Specialty Diagnoses / Procedures Referred By Contac t Referred To Contact [facility] Diagnoses Cystic fibrosis (HCC) Procedures SPIROMETRY BASELINE ONLY SPMTRY W/VC EXPIRATORY CRISTINA W/WO MXML VOL VNTSally [place], MATERIAL DISPOSITION INSPECTOR.ACID CLEANER [id number] [place] [address] Referral ID Status Reason Start Date Expiration Date V isits Requested Visits Authorized [id number] Closed Auto-Generate d Referral 08/06/2022 09/05/2023 1 [...] CRISTINA W/WO MXML VOL VNTJ She Pete, [place] [address] [place] [address] Referral ID Status Reason Start Date Expiration Date V isits Requested Visits Authorized [id number] Closed Auto-Generate d Referral 07/21/2022 08/20/2023 1 1 Reason Comments Follow Up Patient requesting r efill on Celexa Specialty Diagnoses / Procedures Referred By Jennifer newman Referred To Contact Pulmonary Disease / PULMONARY MEDICINE Diagnoses ESTABLISHED - CF Procedures RI EST CYSTIC FIBROSIS She Pete, [address] [place] [address] She Pete, [place] [address] Referral ID Status Reason Start Date Expiration Date V isits Requested Visits Authorized [id number] Pending Review 09/11/2022 12/10/2022 1 1 Reason Onset Date Comments Refill Request 09/25/2022 Reason Comments Refill Request Reason Comments Appointment Referral ID Status Reason Start Date Expiration Date V isits Requested Visits Authorized [id number] Closed Auto-Generate d Referral 08/09/2022 09/08/2023 1 1 Reason Comments Outside Lab Results Referral ID Status Reason Start Date Expiration Date V isits Requested Visits Authorized [id number] Closed Auto-Generate d Referral 11/11/2022 12/11/2023 1 1 Reason Comments Extend CoPat 11/29 Reason Comments cystic fybrosis Specialty Diagnoses / Procedures Referred By Contac t Referred To Contact Pulmonary Disease / PULMONARY MEDICINE Diagnoses Cystic Fibrosis Procedures RI EST CYSTIC FIBROSIS- FOLLOW UP APPOINTMENT IN PERSON She Pete, DO [address] [place] [address] She Pete, [address] [place] [address] Referral ID Status Reason Start Date Expiration Date V isits Requested Visits Authorized [id number] Pending Review 11/20/2022 02/18/2023 1 1 Reason Onset Date Comments Refill Request 11/20/2022 Reason Onset Date Comments Refill Request 11/20/2022 Reason Comments Results Specialty Diagnoses / Procedures Referred By Contac t Referred To Contact [facility] Diagnoses CF (cystic fibrosis) ([facility]) Procedures SPIROMETRY BASELINE ONLY SPMTRY W/VC EXPIRATORY CRISTINA W/WO MXML VOL VNTJ She Pete, [address] [place] [address] [facility] [place] [address] [place] [address] Referral ID Status Reason Start Date Expiration Date V isits Requested Visits Authorized [id number] Closed Auto-Generate d Referral 08/28/2022 09/27/2023 1 1 Reason Comments Follow Up CF, chest is still t ight Specialty Diagnoses / Procedures Referred By Contac t Referred To Contact Internal Medicine / PULMONARY MEDICINE Diagnoses Cystic Fibrosis Procedures RI EST CYSTIC FIBROSIS Jean Pierre Kilgore MD [address] [place] [address] Jean Pierre Kilgore MD [address] [place] [address] Referral ID Status Reason Start Date Expiration Date V isits Requested Visits Authorized [id number] Pending Review 12/04/2022 03/04/2023 1 1 Reason Comments Benefits Authorization Reason Comments Diabetes Reason Comments Insurance Authorization for 0.9% Sodium Chloride 1000 mlInfuse 1000 ml daily for 4 days Reason Comments Insurance Authorization for Vancomycin 7 50mg IV every 12 hours ,Meropenem 1.5gm IV every 8 hours ,Benadryl 50mg [id number] Reason Comments Insurance Authorization Copat extensions from 11/23/22-12/05/22 for Meropenem 1.5g q8h and vancomycin 0.75g q12h Reason Comments Follow Up Coughing up blood a week ago Specialty Diagnoses / Procedures Referred By Contac t Referred To Contact [facility] Diagnoses Cystic fibrosis with pulmonary manifestations (HCC) Procedures SPIROMETRY BASELINE ONLY SPMTRY W/VC EXPIRATORY CRISTINA W/WO MXML VOL VNTJ She Pete, [address] [place] [address] [facility] [place] [address] [place] [address] Referral ID Status Reason Start Date Expiration Date V isits Requested Visits Authorized [id number] Closed Auto-Generate d Referral 03/03/2023 04/01/2024 1 [...] FIBROSIS She Pete DO [address] [place] [address] She Pete DO [address] [place] [address] Referral ID Status Reason Start Date Expiration Date V isits Requested Visits Authorized [id number] Pending Review 03/19/2023 06/17/2023 1 1 Reason Comments PICC Line Reason Comments Returning Patient's Call Specialty Diagnoses / Procedures Referred By Contac t Referred [facility] Contact [facility] Diagnoses Cystic fibrosis (HCC) Procedures SPIROMETRY BASELINE ONLY SPMTRY W/VC EXPIRATORY CRISTINA W/WO MXML VOL She Granado, DO [address] [place] [address] [address] Referral ID Status Reason Start Date Expiration Date V isits Requested Visits Authorized [id number] Closed Auto-Generate d Referral 03/19/2023 04/17/2024 1 1 Reason Comments Recheck No concerns Specialty Diagnoses / Procedures Referred By Contac t Referred To Contact Internal Medicine / PULMONARY MEDICINE Diagnoses F/U Procedures RI EST CYSTIC FIBROSIS Jean Pierre Kilgore MD [address] [place] [address] Jean Pierre Kilgore MD [address] [facility] [address] [place] [address] Referral ID Status Reason Start Date Expiration Date V isits Requested Visits Authorized [id number] Pending Review 06/04/2023 09/02/2023 1 1 Specialty Diagnoses / Procedures Referred By Contac t Referred To Contact [facility] Diagnoses Cystic fibrosis with pulmonary manifestations (HCC) Cystic fibrosis with pulmonary exacerbation (HCC) Procedures SPIROMETRY BASELINE ONLY SPMTRY W/VC EXPIRATORY CRISTINA W/WO MXML VOL She Granado, DO [address] [place] [address] [address] Referral ID Status Reason Start Date Expiration Date V isits Requested Visits Authorized [id number] Closed Auto-Generate d Referral 11/20/2022 12/20/2023 1 1 Reason Comments Recheck Reason Comments Planning Specialist - Other Medical records and DAVID. Reason [...] W/O & W/CONTRAST MATERIAL Mono Lan MD [address] [place] [address] Mr Imaging [facility]95 Referral ID Status Reason Start Date Expiration Date V isits Requested Visits Authorized [id number] Closed Auto-Generate d Referral 04/23/2024 06/22/2024 1 1 Reason Comments Recheck Reason Comments Liver Disease Reason Comments Refill Request Patient Update Specialty Diagnoses / Procedures Referred By Contac t Referred To Contact [facility] Diagnoses Cystic fibrosis with pulmonary manifestations (HCC) Procedures SPIROMETRY BASELINE ONLY SPMTRY W/VC EXPIRATORY CRISTINA W/WO MXML VOL Jean Pierre Chase MD [address] [facility] [address] [place] [address] [facility] [place] [address] [place] [address] Referral ID Status Reason Start Date Expiration Date V isits Requested Visits Authorized [id number] Closed Auto-Generate d Referral 05/05/2024 06/04/2025 1 1 Reason Comments Follow Up Phone Call Planning Specialist - Other Reason Comments CF Routine follow up vi sit. Reason Comments Medication Problem Vanco timing Reason Comments Planning Specialist - Other Reason Comments Critical Results Reason Comments Received Outside Medical Records Referral ID Status Reason Start Date Expiration Date V isits Requested Visits Authorized [id number] Closed Auto-Generate d Referral 09/02/2024 10/02/2025 1 1 Reason Onset Date Comments Refill Request 09/15/2024 Reason Comments Patient Update PICC Line Pulled at [facility] Referral ID Status Reason Start Date Expiration Date V isits Requested Visits Authorized [id number] Closed Auto-Generate d Referral 09/09/2024 10/09/2025 1 1 Reason Comments Abstract Referral ID Status Reason Start Date Expiration Date V isits Requested Visits Authorized [id number] Closed Auto-Generate d Referral 05/05/2024 06/04/2025 1 1 Reason Comments Sore Throat ST and fever x 1.5 w eeks Specialty Diagnoses / Procedures Referred By Contac t Referred To Contact [facility] Diagnoses Cystic fibrosis (HCC) Procedures SPIROMETRY BASELINE ONLY SPMTRY W/VC EXPIRATORY CRISTINA W/WO MXML VOL VNTJ Sally Schneider, MATERIAL DISPOSITION INSPECTOR.ACID CLEANER [address] [place] [address] Phone: tel: fax: [facility] [place] [address] [place] [address] Referral ID Status Reason Start Date Expiration Date V isits Requested Visits Authorized [id number] Closed Auto-Generate d Referral 10/06/2024 11/05/2025 1 1 Reason Comments Follow Up Reason Comments Prior Authorization Reason Comments Planning Specialist - Other [facility] Reason Onset Date Comments Refill Request 04/07/2025 Care Teams (unrecognized sec tion and content) Repairer Shoe Sticks Relationship Specialty Start Date End Date Stephie Ramirez, MATERIAL DISPOSITION INSPECTOR.ACID CLEANER [address] [place], [place] [id number] Referring Endocrinology 09/19/21 Repairer Shoe Sticks Relationship Specialty Start Date End Date Stephie Ramirez, MATERIAL DISPOSITION INSPECTOR.ACID CLEANER [address] [place], [place] [id number] Referring Endocrinology 09/19/21 Repairer Shoe Sticks Relationship Specialty Start Date End Date No Primary Care[place] [address] PCP - General Pediatrics 12/09/16 Jean Pierre Kilgore MD Attending Physician Internal Medicine 12/09/16 Orquidea [place] [address] Youth Agent Social work 12/04/20 Orquidea Mckeon, [place] [address] Ice Sculptor Nutrition 08/01/21 Jasmyn Csatañeda [place] [address] Nurse Practitioner Nurse Practitioner 02/08/22 Maryam Boyer, [place] [address] Registered Nurse 02/08/22 Whitley Hoff RN [facility] [place] [place] [address] Registered Nurse 02/08/22 Repairer Shoe Sticks Relationship Specialty Start Date End Date Stephie Ramirez, MATERIAL DISPOSITION INSPECTOR.ACID CLEANER [address] [place] [address] Referring Endocrinology 09/19/21 Repairer Shoe Sticks Relationship Specialty Start Date End Date Stephie Ramirez, MATERIAL DISPOSITION INSPECTOR.ACID CLEANER [address] [place] [address] Referring Endocrinology 09/19/21 Repairer Shoe Sticks Relationship Specialty Start Date End Date Stephie Ramirez, MATERIAL DISPOSITION INSPECTOR.ACID CLEANER [address] [place] [address] Referring Endocrinology 09/19/21 Repairer Shoe Sticks Relationship Specialty Start Date End Date Stephie Ramirez, MATERIAL DISPOSITION INSPECTOR.ACID CLEANER [address] [place] [address] Referring Endocrinology 09/19/21 Repairer Shoe Sticks Relationship Specialty Start Date End Date Stephie Ramirez, MATERIAL DISPOSITION INSPECTOR.ACID CLEANER [address] [place] [address] Referring Endocrinology 09/19/21 Repairer Shoe Sticks Relationship Specialty Start Date End Date Stephie Ramirez, MATERIAL DISPOSITION INSPECTOR.ACID CLEANER [address] [place] [address] Referring Endocrinology 09/19/21 Repairer Shoe Sticks Relationship Specialty Start Date End Date Stephie Ramirez, MATERIAL DISPOSITION INSPECTOR.ACID CLEANER [address] [place] [address] Referring Endocrinology 09/19/21 Repairer Shoe Sticks Relationship Specialty Start Date End Date Stephie Ramirez, MATERIAL DISPOSITION INSPECTOR.ACID CLEANER [address] [place] [address] Referring Endocrinology 09/19/21 Repairer Shoe Sticks Relationship Specialty Start Date End Date Stephie Ramirez, MATERIAL DISPOSITION INSPECTOR.ACID CLEANER [address] [place] [address] Referring Endocrinology 09/19/21 Repairer Shoe Sticks Relationship Specialty Start Date End Date Stephie Ramirez, MATERIAL DISPOSITION INSPECTOR.ACID CLEANER [address] [place] [address] Referring Endocrinology 09/19/21 Repairer Shoe Sticks Relationship Specialty Start Date End Date Stephie Ramirez, MATERIAL DISPOSITION INSPECTOR.ACID CLEANER [address] [place] [address] Referring Endocrinology 09/19/21 Repairer Shoe Sticks Relationship Specialty Start Date End Date Stephie Ramirez, MATERIAL DISPOSITION INSPECTOR.ACID CLEANER [address] [place] [address] Referring Endocrinology 09/19/21 Repairer Shoe Sticks Relationship Specialty Start Date End Date Stephie Ramirez, MATERIAL DISPOSITION INSPECTOR.ACID CLEANER [address] [place] [address] Referring Endocrinology 09/19/21 Repairer Shoe Sticks Relationship Specialty Start Date End Date Stephie Ramirez, MATERIAL DISPOSITION INSPECTOR.ACID CLEANER [address] [place] [address] Referring Endocrinology 09/19/21 Repairer Shoe Sticks Relationship Specialty Start Date End Date Stephie Ramirez, MATERIAL DISPOSITION INSPECTOR.ACID CLEANER [address] [place] [address] Referring Endocrinology 09/19/21 Repairer Shoe Sticks Relationship Specialty Start Date End Date Stephie Ramirez, MATERIAL DISPOSITION INSPECTOR.ACID CLEANER [address] [place] [address] Referring Endocrinology 09/19/21 Repairer Shoe Sticks Relationship Specialty Start Date End Date Stephie Ramirez, MATERIAL DISPOSITION INSPECTOR.ACID CLEANER [address] [facility] [address] Referring Endocrinology 09/19/21 Repairer Shoe Sticks Relationship Specialty Start Date End Date Stephie Ramirez, MATERIAL DISPOSITION INSPECTOR.ACID CLEANER [address] [facility] [address] Referring Endocrinology 09/19/21 Repairer Shoe Sticks Relationship Specialty Start Date End Date Stephie Ramirez, MATERIAL DISPOSITION INSPECTOR.ACID CLEANER [address] [facility] [address] Referring Endocrinology 09/19/21 Repairer Shoe Sticks Relationship Specialty Start Date End Date Stephie Ramirez, MATERIAL DISPOSITION INSPECTOR.ACID CLEANER [address] [facility] [address] Referring Endocrinology 09/19/21 Repairer Shoe Sticks Relationship Specialty Start Date End Date Stephie Ramirez, MATERIAL DISPOSITION INSPECTOR.ACID CLEANER [address] [place] [address] Referring Endocrinology 09/19/21 Repairer Shoe Sticks Relationship Specialty Start Date End Date Stephie Ramirez, MATERIAL DISPOSITION INSPECTOR.ACID CLEANER [address] [facility] [place] [address] Referring Endocrinology 09/19/21 Repairer Shoe Sticks Relationship Specialty Start Date End Date Stephie Ramirez, MATERIAL DISPOSITION INSPECTOR.ACID CLEANER [address] [place] [address] Referring Endocrinology 09/19/21 Repairer Shoe Sticks Relationship Specialty Start Date End Date Stephie Ramirez, MATERIAL DISPOSITION INSPECTOR.ACID CLEANER [address] [place] [address] Referring Endocrinology 09/19/21 Repairer Shoe Sticks Relationship Specialty Start Date End Date Stephie Ramirez, MATERIAL DISPOSITION INSPECTOR.ACID CLEANER [address] [facility] [place] [address] Referring Endocrinology 09/19/21 Repairer Shoe Sticks Relationship Specialty Start Date End Date Stephie Ramirez, MATERIAL DISPOSITION INSPECTOR.ACID CLEANER [address] [place] [address] Referring Endocrinology 09/19/21 Repairer Shoe Sticks Relationship Specialty Start Date End Date Stephie Ramirez, MATERIAL DISPOSITION INSPECTOR.ACID CLEANER [address] [place] [address] Referring Endocrinology 09/19/21 Repairer Shoe Sticks Relationship Specialty Start Date End Date Stephie Ramirez, MATERIAL DISPOSITION INSPECTOR.ACID CLEANER [address] [place] [address] Referring Endocrinology 09/19/21 Repairer Shoe Sticks Relationship Specialty Start Date End Date Stephie Ramirez, MATERIAL DISPOSITION INSPECTOR.ACID CLEANER [address] [place] [address] Referring Endocrinology 09/19/21 Repairer Shoe Sticks Relationship Specialty Start Date End Date Stephie Ramirez, MATERIAL DISPOSITION INSPECTOR.ACID CLEANER [address] [place] [address] Referring Endocrinology 09/19/21 Repairer Shoe Sticks Relationship Specialty Start Date End Date Stephie Ramirez, MATERIAL DISPOSITION INSPECTOR.ACID CLEANER [address] [place] [address] Referring Endocrinology 09/19/21 Repairer Shoe Sticks Relationship Specialty Start Date End Date Stephie Ramirez, MATERIAL DISPOSITION INSPECTOR.ACID CLEANER [address] [place] [address] Referring Endocrinology 09/19/21 Repairer Shoe Sticks Relationship Specialty Start Date End Date Stephie Ramirez, MATERIAL DISPOSITION INSPECTOR.ACID CLEANER [address] [place] [address] Referring Endocrinology 09/19/21 Repairer Shoe Sticks Relationship Specialty Start Date End Date Stephie Ramirez, MATERIAL DISPOSITION INSPECTOR.ACID CLEANER [address] [place] [address] Referring Endocrinology 09/19/21 Repairer Shoe Sticks Relationship Specialty Start Date End Date Stephie Ramirez, MATERIAL DISPOSITION INSPECTOR.ACID CLEANER [address] [place] [address] Referring Endocrinology 09/19/21 Repairer Shoe Sticks Relationship Specialty Start Date End Date Stephie Ramirez, MATERIAL DISPOSITION INSPECTOR.ACID CLEANER [address] [place] [address] Referring Endocrinology 09/19/21 Repairer Shoe Sticks Relationship Specialty Start Date End Date Stephie Ramirez, MATERIAL DISPOSITION INSPECTOR.ACID CLEANER [address] [place] [address] Referring Endocrinology 09/19/21 Repairer Shoe Sticks Relationship Specialty Start Date End Date Stephie Ramirez, MATERIAL DISPOSITION INSPECTOR.ACID CLEANER [address] [facility] [address] Referring Endocrinology 09/19/21 Repairer Shoe Sticks Relationship Specialty Start Date End Date Stephie Ramirez, MATERIAL DISPOSITION INSPECTOR.ACID CLEANER [address] [place] [address] Referring Endocrinology 09/19/21 Repairer Shoe Sticks Relationship Specialty Start Date End Date Stephie Ramirez, MATERIAL DISPOSITION INSPECTOR.ACID CLEANER [address] [place] [address] Referring Endocrinology 09/19/21 Repairer Shoe Sticks Relationship Specialty Start Date End Date Stephie Ramirez, MATERIAL DISPOSITION INSPECTOR.ACID CLEANER [address] [place] [address] Referring Endocrinology 09/19/21 Repairer Shoe Sticks Relationship Specialty Start Date End Date Stephie Ramirez, MATERIAL DISPOSITION INSPECTOR.ACID CLEANER [address] [place] [address] Referring Endocrinology 09/19/21 Repairer Shoe Sticks Relationship Specialty Start Date End Date Stephie Ramirez, MATERIAL DISPOSITION INSPECTOR.ACID CLEANER [address] [place] [address] Referring Endocrinology 09/19/21 Repairer Shoe Sticks Relationship Specialty Start Date End Date Stephie Ramirez, MATERIAL DISPOSITION INSPECTOR.ACID CLEANER [address] [place] [address] Referring Endocrinology 09/19/21 Repairer Shoe Sticks Relationship Specialty Start Date End Date Stephie Ramirez, MATERIAL DISPOSITION INSPECTOR.ACID CLEANER [address] [place] [address] Referring Endocrinology 09/19/21 Repairer Shoe Sticks Relationship Specialty Start Date End Date Stephie Ramirez, MATERIAL DISPOSITION INSPECTOR.ACID CLEANER [address] [place] [address] Referring Endocrinology 09/19/21 Repairer Shoe Sticks Relationship Specialty Start Date End Date Stephie Ramirez, MATERIAL DISPOSITION INSPECTOR.ACID CLEANER [address] [place] [address] Referring Endocrinology 09/19/21 Repairer Shoe Sticks Relationship Specialty Start Date End Date Stephie Ramirez, MATERIAL DISPOSITION INSPECTOR.ACID CLEANER [address] [place] [address] Referring Endocrinology 09/19/21 Repairer Shoe Sticks Relationship Specialty Start Date End Date Stephie Ramirez, MATERIAL DISPOSITION INSPECTOR.ACID CLEANER [address] [place] [address] Referring Endocrinology 09/19/21 Repairer Shoe Sticks Relationship Specialty Start Date End Date Stephie Ramirez, MATERIAL DISPOSITION INSPECTOR.ACID CLEANER [address] [place] [address] Referring Endocrinology 09/19/21 Repairer Shoe Sticks Relationship Specialty Start Date End Date Stephie Ramirez, MATERIAL DISPOSITION INSPECTOR.ACID CLEANER [address] [place] [address] Referring Endocrinology 09/19/21 Repairer Shoe Sticks Relationship Specialty Start Date End Date Stephie Ramirez, MATERIAL DISPOSITION INSPECTOR.ACID CLEANER [address] [place] [address] Referring Endocrinology 09/19/21 Repairer Shoe Sticks Relationship Specialty Start Date End Date Stephie Ramirez, MATERIAL DISPOSITION INSPECTOR.ACID CLEANER [address] [place] [address] Referring Endocrinology 09/19/21 Repairer Shoe Sticks Relationship Specialty Start Date End Date Stephie Ramirez, MATERIAL DISPOSITION INSPECTOR.ACID CLEANER [address] [place] [address] Referring Endocrinology 09/19/21 Repairer Shoe Sticks Relationship Specialty Start Date End Date Stephie Ramirez, MATERIAL DISPOSITION INSPECTOR.ACID CLEANER [address] [place] [address] Referring Endocrinology 09/19/21 Repairer Shoe Sticks Relationship Specialty Start Date End Date Stephie Ramirez, MATERIAL DISPOSITION INSPECTOR.ACID CLEANER [address] [place] [address] Referring Endocrinology 09/19/21 Repairer Shoe Sticks Relationship Specialty Start Date End Date Stephie Ramirez, MATERIAL DISPOSITION INSPECTOR.ACID CLEANER [address] [place] [address] Referring Endocrinology 09/19/21 Repairer Shoe Sticks Relationship Specialty Start Date End Date Stephie Ramirez, MATERIAL DISPOSITION INSPECTOR.ACID CLEANER [address] [place] [address] Referring Endocrinology 09/19/21 Repairer Shoe Sticks Relationship Specialty Start Date End Date Stephie Ramirez, MATERIAL DISPOSITION INSPECTOR.ACID CLEANER [address] [place] [address] Referring Endocrinology 09/19/21 Repairer Shoe Sticks Relationship Specialty Start Date End Date Stephie Ramirez, MATERIAL DISPOSITION INSPECTOR.ACID CLEANER [address] [place] [address] Referring Endocrinology 09/19/21 Repairer Shoe Sticks Relationship Specialty Start Date End Date Stephie Ramirez, MATERIAL DISPOSITION INSPECTOR.ACID CLEANER [address] [place] [address] Referring Endocrinology 09/19/21 Repairer Shoe Sticks Relationship Specialty Start Date End Date Stephie Ramirez, MATERIAL DISPOSITION INSPECTOR.ACID CLEANER [address] [place] [address] Referring Endocrinology 09/19/21 Repairer Shoe Sticks Relationship Specialty Start Date End Date Stephie Ramirez, MATERIAL DISPOSITION INSPECTOR.ACID CLEANER [address] [place] [address] Referring Endocrinology 09/19/21 Repairer Shoe Sticks Relationship Specialty Start Date End Date Stephie Ramirez, MATERIAL DISPOSITION INSPECTOR.ACID CLEANER [address] [place] [address] Referring Endocrinology 09/19/21 Repairer Shoe Sticks Relationship Specialty Start Date End Date Stephie Ramirez, MATERIAL DISPOSITION INSPECTOR.ACID CLEANER [address] [place] [address] Referring Endocrinology 09/19/21 Repairer Shoe Sticks Relationship Specialty Start Date End Date Stephie Ramirez, MATERIAL DISPOSITION INSPECTOR.ACID CLEANER [address] [place], [place] [id number] Referring Endocrinology 09/19/21 Repairer Shoe Sticks Relationship Specialty Start Date End Date Stephie Ramirez, MATERIAL DISPOSITION INSPECTOR.ACID CLEANER [address] [place], [place] [id number] Referring Endocrinology 09/19/21 Repairer Shoe Sticks Relationship Specialty Start Date End Date Stephie Ramirez, MATERIAL DISPOSITION INSPECTOR.ACID CLEANER [address] [place], [place] [id number] Referring Endocrinology 09/19/21 Jean Pierre Kilgore MD [address] [place] [address] [place], [place] [id number] Internal Medicine 08/18/23 Repairer Shoe Sticks Relationship Specialty Start Date End Date Stephie Ramirez, MATERIAL DISPOSITION INSPECTOR.ACID CLEANER [address] [place], [place] [id number] Referring Endocrinology 09/19/21 Jean Pierre Kilgore MD [address] [place] [address] [place], [place] [id number] Internal Medicine 08/18/23 Repairer Shoe Sticks Relationship Specialty Start Date End Date Stephie Ramirez, MATERIAL DISPOSITION INSPECTOR.ACID CLEANER [address] [place], [place] [id number] Referring Endocrinology 09/19/21 Jean Pierre Kilgore MD [address] [place] [address] [place] [address] Internal Medicine 08/18/[address] [place] [address] Registered Dietitian Nutrition 08/26/23 Repairer Shoe Sticks Relationship Specialty Start Date End Date Stephie Ramirez, MATERIAL DISPOSITION INSPECTOR.ACID CLEANER [address] [place] [place], [place] [id number] Referring Endocrinology 09/19/21 Jean Pierre Kilgore MD [address] [place] [address] [place] [address] Internal Medicine 08/18/[address] [address] Registered Dietitian Nutrition 08/26/23 Repairer Shoe Sticks Relationship Specialty Start Date End Date Stephie Ramirez, MATERIAL DISPOSITION INSPECTOR.ACID CLEANER [address] [place], [place] [id number] Referring Endocrinology 09/19/21 Jean Pierre Kilgore MD [address] [place] [address] [place] [address] Internal Medicine 08/18/[address] [facility] [place] [address] Registered Dietitian Nutrition 08/26/23 Repairer Shoe Sticks Relationship Specialty Start Date End Date Stephie Ramirez, MATERIAL DISPOSITION INSPECTOR.ACID CLEANER [address] [place] [address] Referring Endocrinology 09/19/21 Jean Pierre Kilgore MD [address] [place] [address] [place] [address] Internal Medicine 08/18/[address] [place] 939971 Registered Dietitian Nutrition 08/26/23 Repairer Shoe Sticks Relationship Specialty Start Date End Date Stephie Ramirez, MATERIAL DISPOSITION INSPECTOR.ACID CLEANER [address] [place] [address] Referring Endocrinology 09/19/21 Jean Pierre Kilgore MD [address] [place] [address] [place] [address] Internal Medicine 08/18/[address] [place], [place] 7[address]341 Registered Dietitian Nutrition 08/26/23 Repairer Shoe Sticks Relationship Specialty Start Date End Date Stephie Ramirez, MATERIAL DISPOSITION INSPECTOR.ACID CLEANER [address] [place] [address] Referring Endocrinology 09/19/21 Repairer Shoe Sticks Relationship Specialty Start Date End Date Stephie Ramirez, MATERIAL DISPOSITION INSPECTOR.ACID CLEANER [address] [place] [address] Referring Endocrinology 09/19/21 Jean Pierre Kilgore MD [address] [place] [address] [place] [address] Internal Medicine 08/18/[address] [place] [address] Registered Dietitian Nutrition 08/26/23 Repairer Shoe Sticks Relationship Specialty Start Date End Date Stephie Ramirez, MATERIAL DISPOSITION INSPECTOR.ACID CLEANER [address] [place], [place] [id number] Referring Endocrinology 09/19/21 Jean Pierre Kilgore MD [address] [place] [address] [place] [address] Internal Medicine 08/18/[address] [place] [address] Registered Dietitian Nutrition 08/26/23 Repairer Shoe Sticks Relationship Specialty Start Date End Date Stephie Ramirez, MATERIAL DISPOSITION INSPECTOR.ACID CLEANER [address] [place] [address] Referring Endocrinology 09/19/21 Repairer Shoe Sticks Relationship Specialty Start Date End Date Stephie Ramirez, MATERIAL DISPOSITION INSPECTOR.ACID CLEANER [address] [place] [address] Referring Endocrinology 09/19/21 Jean Pierre Kilgore MD [address] [place] [address] [place] [address] Internal Medicine 08/18/[address] [place] [address] Registered Dietitian Nutrition 08/26/23 Repairer Shoe Sticks Relationship Specialty Start Date End Date Stephie Ramirez, MATERIAL DISPOSITION INSPECTOR.ACID CLEANER [address] [place] [address] Referring Endocrinology 09/19/21 Jean Pierre Kilgore MD [address] [place] [address] [place], [place] [id number] Internal Medicine 08/18/[address] [place] [place] 149761 Registered Dietitian Nutrition 08/26/23 Repairer Shoe Sticks Relationship Specialty Start Date End Date Stephie Ramirez, MATERIAL DISPOSITION INSPECTOR.ACID CLEANER [facility] [place], [place] [id number] Referring Endocrinology 09/19/21 Jean Pierre Kilgore MD [address] [place] [address] [place], [place] [id number] Internal Medicine 08/18/[address] [place] 340291 Registered Dietitian Nutrition 08/26/23 Repairer Shoe Sticks Relationship Specialty Start Date End Date Stephie Ramirez, MATERIAL DISPOSITION INSPECTOR.ACID CLEANER [facility] [address] [place] [address] Referring Endocrinology 09/19/21 Jean Pierre Kilgore MD [address] [place] [address] [place], [place] [id number] Internal Medicine 08/18/[address] [place] [address] Registered Dietitian Nutrition 08/26/23 Repairer Shoe Sticks Relationship Specialty Start Date End Date Stephie Ramirez, MATERIAL DISPOSITION INSPECTOR.ACID CLEANER [address] [place], [place] [id number] Referring Endocrinology 09/19/21 Jean Pierre Kilgore MD [address] [place] [address] [place], [place] [id number] Internal Medicine 08/18/[address] [facility] [place], [place] [address] Registered Dietitian Nutrition 08/26/23 Repairer Shoe Sticks Relationship Specialty Start Date End Date Stephie Ramirez, MATERIAL DISPOSITION INSPECTOR.ACID CLEANER [address] [place] [address] Referring Endocrinology 09/19/21 Jean Pierre Kilgore MD [address] [place] [address] [place], [place] [id number] Internal Medicine 08/18/[address] [facility] [place], [place] [address]32951 Registered Dietitian Nutrition 08/26/23 Repairer Shoe Sticks Relationship Specialty Start Date End Date Stephie Ramirez, MATERIAL DISPOSITION INSPECTOR.ACID CLEANER [address] [facility] [place] [id number] Referring Endocrinology 09/19/21 Jean Pierre Kilgore MD [address] [place] [address] [place], [place] [id number] Internal Medicine 08/18/[address] [place] [address] Registered Dietitian Nutrition 08/26/23 Repairer Shoe Sticks Relationship Specialty Start Date End Date Stephie Ramirez, ADALI.ACID CLEANER [address] [place], [place] [phone] Referring Endocrinology 09/19/21 Jean Pierre Kilgore MD [address] [place] [address] [place] [address] Internal Medicine 08/18/[address] [place] [address] Registered Dietitian Nutrition 08/26/23 Repairer Shoe Sticks Relationship Specialty Start Date End Date Stephie Ramirez, MATERIAL DISPOSITION INSPECTOR.ACID CLEANER [address] [place], [place] [id number] Referring Endocrinology 09/19/21 Jean Pierre Kilgore MD [address] [place] [address] [place] [address] Internal Medicine 08/18/[address] [place] [address] Registered Dietitian Nutrition 08/26/23 Repairer Shoe Sticks Relationship Specialty Start Date End Date Stephie Ramirez, MATERIAL DISPOSITION INSPECTOR.ACID CLEANER [address] [place] [address] Referring Endocrinology 09/19/21 Jean Pierre Kilgore MD [address] [place] [address] [place], [place] [id number] Internal Medicine 08/18/[address] [facility] [place] 309921 Registered Dietitian Nutrition 08/26/23 Repairer Shoe Sticks Relationship Specialty Start Date End Date Stephie Ramirez, MATERIAL DISPOSITION INSPECTOR.ACID CLEANER [address] [place], [place] [id number] Referring Endocrinology 09/19/21 Jean Pierre Kilgore MD [address] [place] [address] [place] [address] Internal Medicine 08/18/[address] [place], [place] 822641 Registered Dietitian Nutrition 08/26/23 Repairer Shoe Sticks Relationship Specialty Start Date End Date Stephie Ramirez, MATERIAL DISPOSITION INSPECTOR.ACID CLEANER [address] [facility] 300 [place], [place] [id number] Referring Endocrinology 09/19/21 Jean Pierre Kilgore MD [address] [place] [address] [place] [address] Internal Medicine 08/18/[address] [place] [address] Registered Dietitian Nutrition 08/26/23 Team Status: Active Member Role Status Dates Dr. Lenora Sutton , DO Family Provider Active Dr. Lenora Sutton , DO Primary Care Provider Activ e Team Status: Inactive Member Role Status Dates Dr. Lenora Sutton , DO Primary Care Provider Activ e SOM SANTIAGO Attending Provider, Referring Provid er Active MARY JO TOBAR Other Provider Active Repairer Shoe Sticks Relationship Specialty Start Date End Date Stephie Ramirez, MATERIAL DISPOSITION INSPECTOR.ACID CLEANER [address] [place], [place] [id number] Referring Endocrinology 09/19/21 Jean Pierre Kilgore MD [address] [place] [address] [place] [address] Internal Medicine 08/18/[address] [facility] [place] 277881 Registered Dietitian Nutrition 08/26/23 Repairer Shoe Sticks Relationship Specialty Start Date End Date Stephie Ramirez, MATERIAL DISPOSITION INSPECTOR.ACID CLEANER [address] [place], [place] [id number] Referring Endocrinology 09/19/21 Jean Pierre Kilgore MD [address] [place] [address] [place] [address] Internal Medicine 08/18/[address] [facility] [place] [address] Registered Dietitian Nutrition 08/26/23 Repairer Shoe Sticks Relationship Specialty Start Date End Date Stephie Ramirez, MATERIAL DISPOSITION INSPECTOR.ACID CLEANER [address] [place], [place] [id number] Referring Endocrinology 09/19/21 Jean Pierre Kilgore MD [address] [place] [address] [place], [place] [id number] Internal Medicine 08/18/[address] [place] 959671 Registered Dietitian Nutrition 08/26/23 Repairer Shoe Sticks Relationship Specialty Start Date End Date Stephie Ramirez, MATERIAL DISPOSITION INSPECTOR.ACID CLEANER [address] [place], [place] [id number] Referring Endocrinology 09/19/21 Jean Pierre Kilgore MD [address] [place] [address] [place], [place] [id number] Internal Medicine 08/18/[address] [place] [place] [id number] Registered Dietitian Nutrition 08/26/23 Team Status: Inactive Member Role Status Dates Dr. Lenora Sutton , Primary Care Provider MARY JO Bauer Other Provider Active SOM SANTIAGO Attending Provider, Referring Provid er Active Repairer Shoe Sticks Relationship Specialty Start Date End Date Stephie Ramirez, MATERIAL DISPOSITION INSPECTOR.ACID CLEANER [address] [place], [place] [id number] Referring Endocrinology 09/19/21 Jean Pierre Kilgore MD [address] [place] [address] [place], [place] [id number] Internal Medicine 08/18/[address] [place] 6[address] Registered Dietitian Nutrition 08/26/23 Repairer Shoe Sticks Relationship Specialty Start Date End Date Stephie Ramirez, MATERIAL DISPOSITION INSPECTOR.ACID CLEANER [address] [place], [place] [id number] Referring Endocrinology 09/19/21 Jean Pierre Kilgore MD [address] [place] [address] [place], [place] [id number] Internal Medicine 08/18/[address] [place], [place] 0834[address] Registered Dietitian Nutrition 08/26/23 Repairer Shoe Sticks Relationship Specialty Start Date End Date Stephie Ramirez, MATERIAL DISPOSITION INSPECTOR.ACID CLEANER [address] [place], [place] [id number] Referring Endocrinology 09/19/21 Jean Pierre Kilgore MD [address] [place] [address] [place], [place] [id number] Internal Medicine 08/18/[address] [place] [address] Registered Dietitian Nutrition 08/26/23 Repairer Shoe Sticks Relationship Specialty Start Date End Date Stephie Ramirez, MATERIAL DISPOSITION INSPECTOR.ACID CLEANER [address] [place], [place] [id number] Referring Endocrinology 09/19/21 Jean Pierre Kilgore MD [address] [place] [address] [place], [place] [id number] Internal Medicine 08/18/[address] [place] [address] Registered Dietitian Nutrition 08/26/23 Repairer Shoe Sticks Relationship Specialty Start Date End Date Stephie Ramirez, MATERIAL DISPOSITION INSPECTOR.ACID CLEANER [address] [place], [place] [id number] Referring Endocrinology 09/19/21 Jean Pierre Kilgore MD [address] [place] [address] [place], [place] [id number] Internal Medicine 08/18/[address] [place], [place] [address]251 Registered Dietitian Nutrition 08/26/23 Repairer Shoe Sticks Relationship Specialty Start Date End Date Stephie Ramirez, MATERIAL DISPOSITION INSPECTOR.ACID CLEANER [address] [facility], [place] [id number] Referring Endocrinology 09/19/21 Jean Pierre Kilgore MD [address] [place] [address] [place] [address] Internal Medicine 08/18/[address] [place] [address] Registered Dietitian Nutrition 08/26/23 Repairer Shoe Sticks Relationship Specialty Start Date End Date Stephie Ramirez, MATERIAL DISPOSITION INSPECTOR.ACID CLEANER [address] [place] [address] Referring Endocrinology 09/19/21 Jean Pierre Kilgore MD [address] [place] [address] [place] [address] [place] [address] Internal Medicine 08/18/[address] [place] [address] Registered Dietitian Nutrition 08/26/23 Repairer Shoe Sticks Relationship Specialty Start Date End Date Stephie Ramirez, MATERIAL DISPOSITION INSPECTOR.ACID CLEANER [address] [place], [place] [phone] Referring Endocrinology 09/19/21 Jean Pierre Kilgore MD [address] [place] [address] [place] [address] [place] [address] Internal Medicine 08/18/[address] [place] [address] Registered Dietitian Nutrition 08/26/23 Repairer Shoe Sticks Relationship Specialty Start Date End Date Stephie Ramirez, MATERIAL DISPOSITION INSPECTOR.ACID CLEANER [address] [place] [address] Referring Endocrinology 09/19/21 Jean Pierre Kilgore MD [address] [place] [address] [place] [address] Internal Medicine 08/18/[address] [place] [address] Registered Dietitian Nutrition 08/26/23 Repairer Shoe Sticks Relationship Specialty Start Date End Date Stephie Ramirez, MATERIAL DISPOSITION INSPECTOR.ACID CLEANER [address] [facility] 300 [place], [place] [id number] Referring Endocrinology 09/19/21 Jean Pierre Kilgore MD [address] [place] [address] [place], [place] [id number] Internal Medicine 08/18/[address] [place] [address] Registered Dietitian Nutrition 08/26/23 Repairer Shoe Sticks Relationship Specialty Start Date End Date Stephie Ramirez, MATERIAL DISPOSITION INSPECTOR.ACID CLEANER [address] [facility] 300 [place] [address] Referring Endocrinology 09/19/21 Jean Pierre Kilgore MD [address] [place] [address] [place] [address] Internal Medicine 08/18/[address] [place] [address] Registered Dietitian Nutrition 08/26/23 Repairer Shoe Sticks Relationship Specialty Start Date End Date Stephie Ramirez, MATERIAL DISPOSITION INSPECTOR.ACID CLEANER [address] [facility] 300 [place] [address] Referring Endocrinology 09/19/21 Jean Pierre Kilgore MD [address] [place] [address] [place] [address] Internal Medicine 08/18/[address] [place] [address] Registered Dietitian Nutrition 08/26/23 Repairer Shoe Sticks Relationship Specialty Start Date End Date Stephie Ramirez, MATERIAL DISPOSITION INSPECTOR.ACID CLEANER [address] [place], [place] [id number] Referring Endocrinology 09/19/21 Jean Pierre Kilgore MD [address] [place] [address] [place], [place] [id number] Internal Medicine 08/18/[address] [place] [place], [place] 209531 Registered Dietitian Nutrition 08/26/23 Repairer Shoe Sticks Relationship Specialty Start Date End Date Stephie Ramirez, MATERIAL DISPOSITION INSPECTOR.ACID CLEANER [address] [place] [address] Referring Endocrinology 09/19/21 Jean Pierre Kilgore MD [address] [place] [address] [place] [address] Internal Medicine 08/18/[address] [place] [address] Registered Dietitian Nutrition 08/26/23 Repairer Shoe Sticks Relationship Specialty Start Date End Date Stephie Ramirez, MATERIAL DISPOSITION INSPECTOR.ACID CLEANER [address] [place], [place] [id number] Referring Endocrinology 09/19/21 Jean Pierre Kilgore MD [address] [place] [address] [place], [place] [id number] Internal Medicine 08/18/[address] [place] [place] 515611 Registered Dietitian Nutrition 08/26/23 Repairer Shoe Sticks Relationship Specialty Start Date End Date Stephie Ramirez, MATERIAL DISPOSITION INSPECTOR.ACID CLEANER [address] [place], [place] [id number] Referring Endocrinology 09/19/21 Jean Pierre Kilgore MD [address] [place] [address] [place], [place] [id number] Internal Medicine 08/18/[address] [place] [address] Registered Dietitian Nutrition 08/26/23 Repairer Shoe Sticks Relationship Specialty Start Date End Date Stephie Ramirez, MATERIAL DISPOSITION INSPECTOR.ACID CLEANER [address] [facility] [place] [address] Referring Endocrinology 09/19/21 Jean Pierre Kilgore MD [address] [place] [address] [place] [address] Internal Medicine 08/18/[address] [place] [address] Registered Dietitian Nutrition 08/26/23 Repairer Shoe Sticks Relationship Specialty Start Date End Date Stephie Ramirez, MATERIAL DISPOSITION INSPECTOR.ACID CLEANER [address] [place] [address] Referring Endocrinology 09/19/21 Jean Pierre Kilgore MD [address] [place] [address] [place], [place] [id number] Internal Medicine 08/18/[address] [place] [address] Registered Dietitian Nutrition 08/26/23 Repairer Shoe Sticks Relationship Specialty Start Date End Date Stephie Ramirez, MATERIAL DISPOSITION INSPECTOR.ACID CLEANER [address] [place], [place] [id number] Referring Endocrinology 09/19/21 Jean Pierre Kilgore MD [address] [place] [address] [place] [address] [place] [address] Internal Medicine 08/18/[address] [place] [address] Registered Dietitian Nutrition 08/26/23 Repairer Shoe Sticks Relationship Specialty Start Date End Date Stephie Ramirez, MATERIAL DISPOSITION INSPECTOR.ACID CLEANER [address] [place] [address] Referring Endocrinology 09/19/21 Jean Pierre Kilgore MD [address] [place] [address] [place] [address] [place] [address] Internal Medicine 08/18/[address] [place] [address] Registered Dietitian Nutrition 08/26/23 Repairer Shoe Sticks Relationship Specialty Start Date End Date Stephie Ramirez, MATERIAL DISPOSITION INSPECTOR.ACID CLEANER [address] [place], [place] [id number] Referring Endocrinology 09/19/21 Jean Pierre Kilgore MD [address] [place] [address] [place], [place] [id number] Internal Medicine 08/18/[address] [place], [place] 374061 Registered Dietitian Nutrition 08/26/23 Repairer Shoe Sticks Relationship Specialty Start Date End Date Stephie Ramirez, MATERIAL DISPOSITION INSPECTOR.ACID CLEANER [address] [place], [place] [id number] Referring Endocrinology 09/19/21 Jean Pierre Kilgore MD [address] [place] [address] [place], [place] [id number] Internal Medicine 08/18/[address] [place] [address] Registered Dietitian Nutrition 08/26/23 Repairer Shoe Sticks Relationship Specialty Start Date End Date Stephie Ramirez, MATERIAL DISPOSITION INSPECTOR.ACID CLEANER [address] [place] [address] Referring Endocrinology 09/19/21 Jean Pierre Kilgore MD [address] [place] [address] [place] [address] [place] [address] Internal Medicine 08/18/[address] [place] [address] Registered Dietitian Nutrition 08/26/23 Repairer Shoe Sticks Relationship Specialty Start Date End Date Stephie Ramirez, ADALI.ACID CLEANER [address] [facility] 300 [place], [place] [id number] Referring Endocrinology 09/19/21 Jean Pierre Kilgore MD [address] [place] [address] [place] [address] Internal Medicine 08/18/[address] [place] [address] Registered Dietitian Nutrition 08/26/23 Repairer Shoe Sticks Relationship Specialty Start Date End Date Stephie Ramriez, MATERIAL DISPOSITION INSPECTOR.ACID CLEANER [address] [place] [address] Referring Endocrinology 09/19/21 Jean Pierre Kilgore MD [address] [place] [address] [place] [address] Internal Medicine 08/18/[address] [place] [address] Registered Dietitian Nutrition 08/26/23 Repairer Shoe Sticks Relationship Specialty Start Date End Date Stephie Ramirez, MATERIAL DISPOSITION INSPECTOR.ACID CLEANER [address] [place] [address] Referring Endocrinology 09/19/21 Jean Pierre Kilgore MD [address] [place] [address] [place] [address] Internal Medicine 08/18/[address] [place] [address] Registered Dietitian Nutrition 08/26/23 Repairer Shoe Sticks Relationship Specialty Start Date End Date Stephie Ramirez, MATERIAL DISPOSITION INSPECTOR.ACID CLEANER [address] [place] [address] Referring Endocrinology 09/19/21 Jean Pierre Kilgore MD [address] [place] [address] [place] [address] Internal Medicine 08/18/[address] [place] [address] Registered Dietitian Nutrition 08/26/23 Repairer Shoe Sticks Relationship Specialty Start Date End Date Stephie Ramirez, MATERIAL DISPOSITION INSPECTOR.ACID CLEANER [address] [place] [address] Referring Endocrinology 09/19/21 Jean Pierre Kilgore MD [address] [address] [place] [address] Internal Medicine 08/18/[address] [place] [address] Registered Dietitian Nutrition 08/26/23 Repairer Shoe Sticks Relationship Specialty Start Date End Date Stephie Ramirez, MATERIAL DISPOSITION INSPECTOR.ACID CLEANER [address] [place] [address] Referring Endocrinology 09/19/21 Jean Pierre Kilgore MD [address] [address] [place], [place] [id number] Internal Medicine 08/18/[address] [place] [address] Registered Dietitian Nutrition 08/26/23 Repairer Shoe Sticks Relationship Specialty Start Date End Date Stephie Ramirez, MATERIAL DISPOSITION INSPECTOR.ACID CLEANER [facility] [place], [place] [id number] Referring Endocrinology 09/19/21 Jean Pierre Kilgore MD [address] [address] [place], [place] [id number] Internal Medicine 08/18/[address] [place] [place] [address] Registered Dietitian Nutrition 08/26/23 Repairer Shoe Sticks Relationship Specialty Start Date End Date Stephie Ramirez, MATERIAL DISPOSITION INSPECTOR.ACID CLEANER [facility] [address] [place] [address] Referring Endocrinology 09/19/21 Jean Pierre Kilgore MD [address] [address] [place], [place] [id number] Internal Medicine 08/18/[address] [place] [address] Registered Dietitian Nutrition 08/26/23 Repairer Shoe Sticks Relationship Specialty Start Date End Date Stephie Ramirez APRN.ACID CLEANER [address] [place], [place] [id number] Referring Endocrinology 09/19/21 Jean Pierre Kilgore MD [address] [place], [place] [id number] Internal Medicine 08/18/[address] [place] [address] Registered Dietitian Nutrition 08/26/23 Scheduled Active and [...] Andreia Rose RN - Reason: Patient/family refused) Enekkdnr-Rsowuek-Hmcpqx& Ivacaf (Trikafta) oral tablet therapy pack 1 Tablet 1 Tablet, Oral, DAILY, First dose on 05/12/22 at 1630, Until Discontinued, Home Medication: 2 orange tablets in AM every even day, and 1 orange table in AM every odd day. Do not take blue pills. Take with fat containing food. Home supply verified over the phone with OLEKSANDR Pryor at [facility] 05-12-22. RN must override scan for administration., [...] Virk, OLEKSANDR) fluticasone (FLONASE) nasal spray 1 [place] 1 [place], Each Nare, 2 TIMES DAILY, 180 doses, First dose on 05/12/22 at 2100, Last dose on 08/10/22 at 0900, OP SI [place] by Each Nare route 2 times daily [...] Roya Kapoor RN)1201 (Dose/Rate Verification - Provider: oRya Kapoor RN)1301 (Dose/Rate Verification - Provider: Roya [...] - Provider: Magalie Kuhn, OLEKSANDR) pancrelipase (CREON) [id number] units capsule 108,000 Units 108,000 Units (14,400 [...] BE BASED ON THE PRIMARY CLINICAL RECORDS. [employer] provides no warranty or guarantee of the accuracy or completeness of information in this document.
[2025-05-03 02:27] LABS: Procalcitonin 0.22 ng/mL (<=0.10)
[2025-05-03] MEDS: Carvedilol 25 MG Tablet PO ×3 (02:40→17:17)
[2025-05-03 02:51] LABS: Troponin T High Sensitivity 42 ng/L (<=22)
--- NOTE | 2025-05-03 03:23 | PCM.RX.CS ---
Consult Antibiotic Management Pharmacy has been consulted to manage selected antibiotic: Vancomycin Type of Intervention Type of Consult: New start Labs Labs: Sodium 134 mmol/L (133-145) 05/02/25 17:43 Potassium 5.7 mmol/L (3.3-5.1) H 05/02/25 17:43 Chloride 107 mmol/L (98-108) 05/02/25 17:43 Carbon Dioxide 21.0 mmol/L (21.0-32.0) 05/02/25 17:43 Anion Gap 6 (5-15) 05/02/25 17:43 BUN 29 mg/dL (4-19) H 05/02/25 17:43 Creatinine 1.56 mg/dL (0.70-1.20) H 05/02/25 17:43 Est GFR (MDRD) Non-Af 61 (>60) 05/02/25 17:43 BUN/Creatinine Ratio 18.4 RATIO (10-20) 05/02/25 17:43 Glucose 194 mg/dL (70-99) H 05/02/25 17:43 Microbiology Microbiology: Microbiology 05/02/25 18:20 Mucosa - Nose SARS-CoV-2, Influenza & RSV (PCR) - Final Dosing Weight Weight used for dosin kg Estimated Creatinine Clearance Estimated Creatinine Clearance: 39.48 Goal Trough Goal Trough: 15-20 mcg/mL Pharmacy Plan for Drug Dosing Pharmacy Plan for Drug Dosing: Pharmacy Service will continue to monitor and adjust dosing as required. 1GM DOSE GIVEN IN ER 05/02 @ 1916. START 750MG Q24H AND DRAW TROUGH PRIOR TO 3RD DOSE Follow-Up Labs Follow-Up Labs: Trough: Vancomycin Date/Time Labs Ordered Labs to be done on [date and time ordered]: 05/04 @ 1900
[2025-05-03 04:40] LABS: Absolute Lymphocyte Count 1.68 X10^3/uL (0.83-4.51); Absolute Neutrophil Count 8.9 X10^3/uL (2.0-7.7); Basophil# 0.09 X10^3/uL; Basophil% 0.7 % (0-1); Eosinophil# 0.71 X10^3/uL; Eosinophils% 5.6 % (0-5); Hematocrit 31.1 % (40-54); Lymphocyte # 1.68 X10^3/ul (0.83-4.51); Lymphocyte % 13.3 % (19-41); Mean Corp Hgb Conc 32.2 g/dL (32-36); Mean Corpuscular Hgb 29.7 pg (27.0-32.0); Mean Corpuscular Volume 92.3 fL (80-94); Mean Platelet Vol. 9.6 fl (6.2-12.0); Monocyte# 1.21 X10^3/uL; Monocyte% 9.6 % (0-10); NRBC Flagged by Analyzer 0 % (0-5); Neutrophil # 8.85 X10^3/uL (2.7-7.7); Neutrophil % 70.1 % (47-70); Platelet Count 168 K/mm3 (150-450); RBC Distribution Width CV 15.7 % (11.6-14.6); RBC Distribution Width SD 53.1 fl (35.1-43.9); Red Blood Count 3.37 M/mm3 (4.6-6.2); White Blood Count 12.6 K/mm3 (4.4-11.0)
[2025-05-03 04:59] LABS: Bedside Glucose 107 mg/dL (74-106)
[2025-05-03 05:54] LABS: Troponin T High Sens 2 HR 48 ng/L (<=22)
[2025-05-03 05:56] LABS: ALB/GLOB Ratio 0.5 RATIO (0.9-2.4); AST(SGOT) 29 U/L (<=37); Alanine Aminotransfer ALT/SGPT 36 U/L (<=46); Albumin, Serum 2.3 g/dL (3.5-5.0); Alkaline Phosphatase 585 U/L (40-129); Anion Gap 8 (5-15); BUN 27 mg/dL (4-19); BUN/Creat Ratio 16.8 RATIO (10-20); Carbon Dioxide 16.5 mmol/L (21.0-32.0); Chloride 110 mmol/L (98-108); Creatinine, Serum 1.61 mg/dL (0.70-1.20); EST Glomerular Filtration Rate 58 (>60); Estimated Creatinine Clearance 40.43 ml/min (50-250); Globulin 4.7 g/dL (2.2-4.2); Glucose 97 mg/dL (70-99); Potassium 5.7 mmol/L (3.3-5.1); Sodium Level 135 mmol/L (133-145); Total Bilirubin 0.54 mg/dL (0.00-1.30)
[2025-05-03] MEDS: 0.9% Normal Saline (250mL Bag) 250 ML 15 ML IV ×2 (06:11→20:19)
[2025-05-03] MEDS: Piperacil/Tazobactam 3.375 GM in 0.9% Normal Saline (50mL MB+) 50 ML IV (06:11)
[2025-05-03 06:28] LABS: Troponin T High Sens 4 HR 52 ng/L (<=22)
[2025-05-03] MEDS: Albuterol 2.5 MG/3 ML VIAL.NEB. INHALATION (07:09)
--- NOTE | 2025-05-03 07:13 | CPS ---
pt has vibratory vest at bedside. Pt is refusing the vest at this time d/t him feeling like he is driedup and has no mucus. Pt understands the needs for the vest, along with the IS/PEP devices that are also at bedside. Pt will let nursing staff or HAND ALTERATIONS TAILOR know if he feels like he needs them.
--- NOTE | 2025-05-03 07:18 | PN.HOSP_ITS ---
Reason for Visit Reason for Visit: Diagnoses Acute respiratory failure with hypoxia (05/03/25) Subjective Subjective Patient is a 29-year-old gentleman with history of cystic fibrosis on Trikafta who is followed at the [facility] presented to the emergency department with worsening dyspnea. Objective Data Objective Data Vital Signs: Vital Signs Temp Pulse Resp BP Pulse Ox O2 Del Method O2 Flow Rate 98 F 106 H 22 H 157/65 H 98 Nasal Cannula 2 05/03/25 04:00 05/03/25 07:10 05/03/25 07:10 05/03/25 07:00 05/03/25 07:10 05/03/25 07:10 05/03/25 07:10 FiO2 25 05/03/25 06:00 Oxygen Flow Rate (L/min) 2 Oxygen Delivery Method Nasal Cannula Weight: 43.001 kg Body Mass Index (BMI) 17.3 Intake & Output: Intake and Output for Last 24 Hours 05/01/25 05/02/25 05/03/25 23:59 23:59 23:59 Intake Total 1320 / 1320 Output Total 450 / 450 Balance 1320 / 1320 -449 / -449 Lab / Micro Data 05/03/25 04:14 05/03/25 04:14 Labs: Laboratory Results - last 24 hr 05/02/25 17:43: WBC 12.8 H, RBC 3.62 L, Hgb 10.7 L, Hct 33.1 L, MCV 91.4, MCH 29.6, MCHC 32.3, RDW Std Deviation 52.8 H, RDW Coeff of Erika 15.6 H, Plt Count 189, MPV 10.2, Immature Gran % (Auto) 0.200, Neut % (Auto) 70.6 H, Lymph % (Auto) 12.8 L, [place] % (Auto) 9.4, Eos % (Auto) 6.3 H, Baso % (Auto) 0.7, A bsolute Neuts (auto) 9.0 H, Absolute Lymphs (auto) 1.63, Nucleated RBC % 0, PT 14.3, INR 1.1, APTT 37.2 H, Sodium 134, Potassium 5.7 H, Chloride 107, Carbon Dioxide 21.0, Anion Gap 6, BUN 29 H, Creatinine 1.56 H, Estim Creat Clear Calc 39.48 L, Est GFR (MDRD) Non-Af 61, BUN/Creatinine Ratio 18.4, Glucose 194 H, Calcium 8.1, Total Bilirubin 0.56, AST 42 H, ALT 34, Alkaline Phosphatase 629 H, Troponin T High Sens 36 H, NT pro BNP II 803 H, Total Protein 7.9, Albumin 2.7 L , Globulin 5.2 H, Albumin/Globulin Ratio 0.5 L 05/02/25 18:20: Lactic Acid < 1.0 05/02/25 20:20: Phosphorus 3.6, Magnesium 1.8, Troponin T Hi Sens 2 Hr 35 H, Urine Color Yellow, Urine Clarity Clear, Urine pH 6.0, Ur Specific [place] 1.015, Urine Protein 500 H, Urine Glucose (UA) Normal, Urine Ketones Negative, U rine Occult Blood 50 H, Urine Nitrite Negative, Urine Bilirubin Negative, Urine Urobilinogen Normal, Ur Leukocyte Esterase Negative, Urine RBC 0-5 SEEN, Urine WBC 0-5 SEEN, Ur Squamous Epith Cells 0 SEEN, Urine Bacteria 0 SEEN, Hyaline Casts 0-5 SEEN, Coarse Granular Casts 0-5 SEEN, Urine Mucus 0 SEEN 05/03/25 01:56: Procalcitonin 0.22 H 05/03/25 01:59: Troponin T High Sens 42 H D 05/03/25 02:39: POC Glucose 107 H 05/03/25 04:14: WBC 12.6 H, RBC 3.37 L, Hgb 10.0 L, Hct 31.1 L, MCV 92.3, MCH 29.7, MCHC 32.2, RDW Std Deviation 53.1 H, RDW Coeff of Erika 15.7 H, Plt Count 168, MPV 9.6, Immature Gran % (Auto) 0.700, Neut % (Auto) 70.1 H, Lymph % (Auto) 13.3 L, [place] % (Auto) 9.6, Eos % (Auto) 5.6 H, Baso % (Auto) 0.7, Absolute Neuts (auto) 8.9 H, Absolute Lymphs (auto) 1.68, Nucleated RBC % 0, Sodium 135, P otassium 5.7 H, Chloride 110 H, Carbon Dioxide 16.5 L, Anion Gap 8, BUN 27 H, C reatinine 1.61 H, Estim Creat Clear Calc 40.43 L, Est GFR (MDRD) Non-Af 58 L, BUN/Creatinine Ratio 16.8, Glucose 97, Calcium 8.0, Total Bilirubin 0.54, AST 29, ALT 36, Alkaline Phosphatase 585 H, Troponin T Hi Sens 2 Hr 48 H, Total Protein 7.0, Albumin 2.3 L, Globulin 4.7 H, Albumin/Globulin Ratio 0.5 L 05/03/25 06:05: Troponin T Hi Sens 4Hr 52 H Micro: Microbiology 05/03/25 02:15 Mucosa - Throat Respiratory Panel (PCR) - Final 05/03/25 01:49 Nasal Secretion MRSA (PCR) - Final 05/02/25 18:20 Mucosa - Nose SARS-CoV-2, Influenza & RSV (PCR) - Final ABG Data ABG results: ABG 05/02/25 18:33 Specimen Type ART Sample Site R Radial pH 7.35 Bicarbonate Actual 22.5 Total CO2 24 Base Excess -3 L O2 Saturation 97 O2 % 2.0 ABG pCO2 41.3 ABG pO2 92 Marcelo Test Positive O2 Delivery Device Cannula Vent Mode Not entered Radiography Diagnostic Testing: Radiology Impression Chest CTA 05/02/25 20:01 IMPRESSION: 1. No evidence of pulmonary embolism. 2. Scattered ground-glass opacities and tree-in-bud nodularity bilaterally, likely infectious or inflammatory. 3. Diffuse bronchial wall thickening and bronchiectasis, in addition to mosaic attenuation, in keeping with known cystic fibrosis. 4. Enlarged main pulmonary artery, suggestive of pulmonary hypertension. 5. Slightly nodular contour of the liver with prominent splenic vein, which could be the result of hepatic fibrosis and portal hypertension. Reading Location: [facility] Physical Exam Narrative GENERAL: cooperative HEENT: Atraumatic; normocephalic EYES; Anicteric, Normal Conjunctiva NECK; supple, normal thyroid, RESPIRATORY: Diminished to auscultation CARDIOVASCULAR: Regular S1 S2, GI: soft, normoactive bowel sounds, : No Renal angle tenderness; EXTREMITIES: No edema, no clubbing, MUSCULOSKELETAL: no muscle wasting NEURO: Awake; no lateralizing signs. SKIN: No Rash PSYCH; Flat affect Assessment & Plan Assessment/Plan (1) Acute hypoxic respiratory failure: PLAN: Plan Patient is a 29-year-old gentleman with history of cystic fibrosis who is followed at the [facility] presented to the emergency department with worsening dyspnea. 1. Acute hypoxic respiratory failure ? Secondary to bilateral pneumonia with bronchiectasis in a patient with cystic fibrosis. Patient admitted to regular nursing floor pending transfer to [facility]. Patient was started on meropenem and cefepime (his music sound light technician at [facility] had recommended Ceftazidimehowever not available in the hospital) consult was placed to pulmonary medicine patient seen by Dr. Chaudhary case discussed with him 2. Cystic fibrosis ? With pancreatic insufficiencyAnd asthma. Patient is on Trikafta and is followed by Dr. Greenfield she is at [facility] patient is currently awaiting transfer to [facility] 3. Hyperkalemia ? Present on admission treated per protocol, repeat BMP ordered for follow-up 4. Acute kidney injury ? Secondary to volume depletion. Patient creatinine from 09/02/2024 was 1.09 was 1.56 on admission started on IV hydration 5. Anemia ? Secondary to chronic disorder monitoring H&H and transfuse if patient becomes symptomatic or hemoglobin falls below 7 6. Diabetes mellitus type 1 ? Secondary to pancreatic insufficiency from patient cystic fibrosis. Patient was placed on Accu-Cheks AC and at bedtime with sliding scale coverage 7. Pancreatic insufficiency ? Patient is on Creon 8. GERD ? On PPI 9. Hypertension ? Blood pressure controlled, home medications continued with dose adjustment as needed 10. DVT prophylaxis ? On enoxaparin Time spent in the patient's overall evaluation,decision-making process, review of diagnostic data, adjustment of management, discussion with other providers, nursing nursing and ancillary staff involved in patient's care documentation, 32 Minutes Charges/Coding Visit Charges Inpatient E&M: 29975 PROLNG IP/OBS E/M EA 15 MIN ([id number], [id number])
--- NOTE | 2025-05-03 07:50 | CON.PCM.CC_ITS ---
Assessment & Plan Assessment/Plan (1) SOB (shortness of breath): PLAN: Plan RECOMMENDATIONS: 1. Continue to wean supplemental oxygen to maintain saturations at or above 90%. 2. Agree with empiric antimicrobial therapy. 3. Continue Trikafta per home regimen. 4. Continue bronchodilator therapy. 5. Given mild wheezing noted on exam, start prednisone 40 mg daily. 6. Continue aggressive bronchopulmonary hygiene, including inhaled dornase alpha. 7. The patient does not have any active ICU requirements. Therefore, he can be downgraded to a non-ICU status. IMPRESSIONS: 1. Shortness of breath and hypoxemia/history of asthma and cystic fibrosis The patient presented to the hospital with worsening dyspnea in the setting of a known history of cystic fibrosis on Trikafta and dornase alpha on an outpatient basis. The patient is regularly followed by a back tacker at [facility]. In addition to the aforementioned, he carries a diagnosis of asthma on Advair. The patient's CF appears to be in a state of exacerbation with concern for underlying pulmonary infectious etiology. Accordingly, the patient will be continued on empiric antimicrobial therapy. Recommend continuing home Trikafta along with inhaled dornase alpha. Continue scheduled bronchodilators along with aggressive bronchopulmonary hygiene. 2. History of diabetes mellitus/hypertension/GERD/protein calorie malnutrition/chronic pancreatic insufficiency Complicates care, management, recovery and prognosis. Continue supportive measures as noted above. Continue Creon per home regimen. This note was generated with [employer] dictation software. It may contain incorrect words, spelling, and punctuation that were not noted in checking the note before signing. HPI Consult Data Date of Consult: 05/03/25 HPI Narrative Reason for Consultation: Shortness of breath HPI Narrative: The patient is a 29-year-old male, with a history as outlined below, who presented to the emergency department on May 03 with complaints of worsening dyspnea. The patient has a known history of cystic fibrosis on Trikafta following with Dr. Jean Pierre Amaya at [facility], asthma and pancreatic insufficiency. The patient reported that he was last seen by his pulmonary provider in March 2025. He currently utilizes Advair as his maintenance medication for his asthma. The patient denied have any supplemental oxygen requirement at his baseline. On presentation to the emergency department, the patient was documented to be afebrile but was tachycardic, tachypneic and hypertensive. Laboratory evaluation revealed a white blood cell count of 13,000 with stable hemoglobin and platelet count. Arterial blood gas was notable for a pH of 7.35 with a pCO2 of 41 and pO2 of 92 on nasal cannula oxygen. Chemistry profile was notable for a potassium of 5.7 and creatinine of 1.56. Lactate was within normal limits. Urine analysis was unremarkable. CTA chest showed no evidence for pulmonary embolism. There was bilateral bronchiectasis and bronchial wall thickening along with scattered groundglass opacities throughout both lungs. Respiratory viral panel was negative. COVID, influenza and RSV PCR's were negative. Blood cultures were subsequently obtained. MRSA screen was negative. The patient was subsequently placed on bronchodilators and empiric antimicrobials. He was then admitted to the hospital for further management. This morning, the patient reported significant overall improvement in his breathing quality. He remains hemodynamically stable and is maintaining appropriate oxygen saturations on 2 L/min via nasal cannula. CODE STATUS was again confirmed with the patient to be DNR CCA without intubation. [facility] Medical History Chronic anemia Alcohol abuse Asthma Pancreatic insufficiency GERD (gastroesophageal reflux disease) HTN (hypertension) Type 1 diabetes mellitus Cystic fibrosis Home Medications ?Medication ?Instructions ?Recorded ?Last Taken ?Type elexacaftor 100 mg-tezacaf 2 ea PO DAILY CF 11/14/19 0 05/02/25 History 50mg-ivacaf 75mg(d)/ivacaf 150mg(n) tablets sptwza-joqavyni-tugewlr 2 - 3 cap PO TIDCM CF 05/02/25 History 36,000-114,000-180,000 unit capsule,delay rel insulin glargine 100 unit/mL (3 8 unit SQ QHS DM 07/0405/02/25 History mL) subcutaneous pen insulin lispro 100 unit/mL See Protocol SQ TIDCM diabe rafael 07/04/20 05/02/25 History subcutaneous pen albuterol sulfate 90 mcg/actuation 2 puff inhalation Q 4H PRN PRN 08/31/24 05/02/25 History aerosol inhaler (Ventolin HFA) wheezing blood sugar diagnostic (OneTouch 08/31/24 Unknown His tory Verio test strips) blood-glucose sensor (Dexcom G7 08/31/24 Unknown Hist ory Sensor device) carvedilol 25 mg tablet 25 mg PO BID heart/ blood pr essure 08/31/24 05/02/25 History dornase christi 1 mg/mL solution for 2.5 mg inhalation DA ROLAND breathing 08/31/24 05/02/25 History inhalation (Pulmozyme) ipratropium 0.5 mg-albuterol 3 mg 3 ml inhalation Q4H PRN PRN 08/31/24 05/02/25 History (2.5 mg base)/3 mL nebulization wheezing soln polyethylene glycol 3350 17 17 g PO DAILY PRN constipa tion 08/31/24 Unknown History gram/dose oral powder Allergy/AdvReac Type Severity Reaction Status Date / Time cefoxitin AdvReac Intermediate Upset Verified 05/02/25 17:29 Stomach Family History Mother Breast cancer CAD (coronary artery disease) Heart disease Hypertension Myocardial infarction Father Leukemia Family History no significant family his Surgical History H/O intra-abdominal venous shunt Social History household members: family Smoking Status: Never smoker alcohol intake: former details: Sober since 2021. substance use type: does not use ROS ROS Narrative 10 systems were reviewed with pertinent positives as noted in the HPI above. Physical Exam Const alert, oriented x3 and no apparent distress General Appearance: cooperative HEENT normocephalic, head/scalp atraumatic and moist oral mucous membranes Eyes PERRL, EOMs intact bilaterally and conjunctivae normal Neck supple General: trachea midline Chest inspection of chest normal Resp normal respiratory effort and no use of accessory muscles Resp Narrative: Mild expiratory wheezes bilaterally Effort and Inspection: able to speak in complete sentences Cardio regular rate and regular rhythm GI normal to inspection, nondistended, normoactive bowel sounds Extremity no clubbing, cyanosis or edema Skin no rashes or lesions noted Neuro CN's II-XII intact bilaterally, moves all extremities and no focal motor deficits Psych cooperative and affect normal Lab / Micro Data 05/03/25 04:14 05/03/25 04:14 Labs: Laboratory Results - last 24 hr 05/02/25 17:43: WBC 12.8 H, RBC 3.62 L, Hgb 10.7 L, Hct 33.1 L, MCV 91.4, MCH 29.6, MCHC 32.3, RDW Std Deviation 52.8 H, RDW Coeff of Erika 15.6 H, Plt Count 189, MPV 10.2, Immature Gran % (Auto) 0.200, Neut % (Auto) 70.6 H, Lymph % (Auto) 12.8 L, [place] % (Auto) 9.4, Eos % (Auto) 6.3 H, Baso % (Auto) 0.7, A bsolute Neuts (auto) 9.0 H, Absolute Lymphs (auto) 1.63, Nucleated RBC % 0, PT 14.3, INR 1.1, APTT 37.2 H, Sodium 134, Potassium 5.7 H, Chloride 107, Carbon Dioxide 21.0, Anion Gap 6, BUN 29 H, Creatinine 1.56 H, Estim Creat Clear Calc 39.48 L, Est GFR (MDRD) Non-Af 61, BUN/Creatinine Ratio 18.4, Glucose 194 H, Calcium 8.1, Total Bilirubin 0.56, AST 42 H, ALT 34, Alkaline Phosphatase 629 H, Troponin T High Sens 36 H, NT pro BNP II 803 H, Total Protein 7.9, Albumin 2.7 L , Globulin 5.2 H, Albumin/Globulin Ratio 0.5 L 05/02/25 18:20: Lactic Acid < 1.0 05/02/25 20:20: Phosphorus 3.6, Magnesium 1.8, Troponin T Hi Sens 2 Hr 35 H, Urine Color Yellow, Urine Clarity Clear, Urine pH 6.0, Ur Specific [place] 1.015, Urine Protein 500 H, Urine Glucose (UA) Normal, Urine Ketones Negative, U rine Occult Blood 50 H, Urine Nitrite Negative, Urine Bilirubin Negative, Urine Urobilinogen Normal, Ur Leukocyte Esterase Negative, Urine RBC 0-5 SEEN, Urine WBC 0-5 SEEN, Ur Squamous Epith Cells 0 SEEN, Urine Bacteria 0 SEEN, Hyaline Casts 0-5 SEEN, Coarse Granular Casts 0-5 SEEN, Urine Mucus 0 SEEN 05/03/25 01:56: Procalcitonin 0.22 H 05/03/25 01:59: Troponin T High Sens 42 H D 05/03/25 02:39: POC Glucose 107 H 05/03/25 04:14: WBC 12.6 H, RBC 3.37 L, Hgb 10.0 L, Hct 31.1 L, MCV 92.3, MCH 29.7, MCHC 32.2, RDW Std Deviation 53.1 H, RDW Coeff of Erika 15.7 H, Plt Count 168, MPV 9.6, Immature Gran % (Auto) 0.700, Neut % (Auto) 70.1 H, Lymph % (Auto) 13.3 L, [place] % (Auto) 9.6, Eos % (Auto) 5.6 H, Baso % (Auto) 0.7, Absolute Neuts (auto) 8.9 H, Absolute Lymphs (auto) 1.68, Nucleated RBC % 0, Sodium 135, P otassium 5.7 H, Chloride 110 H, Carbon Dioxide 16.5 L, Anion Gap 8, BUN 27 H, C reatinine 1.61 H, Estim Creat Clear Calc 40.43 L, Est GFR (MDRD) Non-Af 58 L, BUN/Creatinine Ratio 16.8, Glucose 97, Calcium 8.0, Total Bilirubin 0.54, AST 29, ALT 36, Alkaline Phosphatase 585 H, Troponin T Hi Sens 2 Hr 48 H, Total Protein 7.0, Albumin 2.3 L, Globulin 4.7 H, Albumin/Globulin Ratio 0.5 L 05/03/25 06:05: Troponin T Hi Sens 4Hr 52 H Micro: Microbiology 05/03/25 02:15 Mucosa - Throat Respiratory Panel (PCR) - Final 05/03/25 01:49 Nasal Secretion MRSA (PCR) - Final 05/02/25 18:20 Mucosa - Nose SARS-CoV-2, Influenza & RSV (PCR) - Final ABG Data ABG results: ABG 05/02/25 18:33 Specimen Type ART Sample Site R Radial pH 7.35 Bicarbonate Actual 22.5 Total CO2 24 Base Excess -3 L O2 Saturation 97 O2 % 2.0 ABG pCO2 41.3 ABG pO2 92 Marcelo Test Positive O2 Delivery Device Cannula Vent Mode Not entered Imaging Radiology Impression Chest CTA 05/02/25 20:01 IMPRESSION: 1. No evidence of pulmonary embolism. 2. Scattered ground-glass opacities and tree-in-bud nodularity bilaterally, likely infectious or inflammatory. 3. Diffuse bronchial wall thickening and bronchiectasis, in addition to mosaic attenuation, in keeping with known cystic fibrosis. 4. Enlarged main pulmonary artery, suggestive of pulmonary hypertension. 5. Slightly nodular contour of the liver with prominent splenic vein, which could be the result of hepatic fibrosis and portal hypertension. Reading Location: [id number] Charges/Coding Visit Charges Inpatient E&M: 78554 Init Hosp L3
[2025-05-03] MEDS: Creon 12,000 unit DR CapSULE PO ×3 (07:54→17:18)
[2025-05-03] MEDS: Acetaminophen 325 MG Tablet 650 MG PO ×3 (08:05→18:27)
--- NOTE | 2025-05-03 09:07 | CASEMGMT ---
Tertiary Insurance review for hospitals In-network with [facility] insurance if transfer is recommended is as follows: [facility], [facility], [place], [facility], [facility], [facility], , [place], [facility], and [place]. Kathy Linares, Discharge Planning Asst.
[2025-05-03] MEDS: predniSONE 20 MG Tablet 40 MG PO (09:19)
[2025-05-03] MEDS: Enoxaparin 40 MG/0.4 ML Syringe SC (09:20)
[2025-05-03] MEDS: Cefepime HCl 2 GM in 0.9% Normal Saline (100mL MB+) 100 ML IV ×2 (10:49→21:42)
[2025-05-03] MEDS: Meropenem 1 GM in 0.9% Normal Saline (100mL MB+) 100 ML IV ×2 (11:57→22:29)
[2025-05-03] MEDS: Insulin Lispro 100 UNIT/ML INSULN.PEN SC ×4 (12:02→21:40)
[2025-05-03 12:45] LABS: Anion Gap 8 (5-15); BUN 33 mg/dL (4-19); Carbon Dioxide 15.1 mmol/L (21.0-32.0); Chloride 109 mmol/L (98-108); Creatinine, Serum 1.95 mg/dL (0.70-1.20); EST Glomerular Filtration Rate 46 (>60); Estimated Creatinine Clearance 33.38 ml/min (50-250); Glucose 153 mg/dL (70-99); Potassium 6.1 mmol/L (3.3-5.1); Sodium Level 132 mmol/L (133-145)
[2025-05-03 13:55] LABS: Potassium 5.9 mmol/L (3.3-5.1)
[2025-05-03] MEDS: Sodium Polystyrene Sulfonate 15 GM/60 ML UDC 30 GM PO (15:46)
[2025-05-03] MEDS: ELEXACAFTOR/TEZACAFTOR/IVACAFT 1 EACH TABLET.SEQ PO (17:08)
[2025-05-03 20:05] LABS: Anion Gap 11 (5-15); BUN 50 mg/dL (4-19); BUN/Creat Ratio 17.7 RATIO (10-20); Calcium,Total 8.1 mg/dL (7.6-11.0); Chloride 103 mmol/L (98-108); EST Glomerular Filtration Rate 30 (>60); Estimated Creatinine Clearance 23.25 ml/min (50-250); Glucose 314 mg/dL (70-99); Potassium 5.4 mmol/L (3.3-5.1); Sodium Level 130 mmol/L (133-145)
[2025-05-03] MEDS: DiphenhydrAMINE 50 MG/ML Syringe 25 MG IV (20:19)
[2025-05-03] MEDS: Vancomycin HCl 750 MG in 0.9% Normal Saline (250mL Bag) 250 ML 250 MG IV (20:19)
[2025-05-03] MEDS: 0.9% Saline Lock 10 ML Syringe IV (20:19)
[2025-05-03] MEDS: Insulin Glargine-YFGN 100 UNIT/ML Pen 8 UNIT SC (21:40)
[2025-05-03 22:33] LABS: Bedside Glucose 341 mg/dL (74-106)
[2025-05-04] VITALS (13 sets, daily range): BP systolic 141–176; BP diastolic 81–107; PULSE 81–115; RESP 16–22; TEMP 36.5–37; O2SAT 92–98; BMI 17.2
[2025-05-04] MEDS: Ipratropium/Albuterol Sulfate 3 ML AMPUL.NEB INHALATION ×4 (05:27→21:11)
[2025-05-04 06:35] LABS: Bedside Glucose 285 mg/dL (74-106)
[2025-05-04 07:10] LABS: Absolute Lymphocyte Count 1.29 X10^3/uL (0.83-4.51); Absolute Neutrophil Count 10.3 X10^3/uL (2.0-7.7); Basophil# 0.04 X10^3/uL; Basophil% 0.3 % (0-1); Hematocrit 28.7 % (40-54); Hemoglobin 9.5 g/dL (13.0-16.5); Lymphocyte # 1.29 X10^3/ul (0.83-4.51); Lymphocyte % 10.1 % (19-41); Mean Corp Hgb Conc 33.1 g/dL (32-36); Mean Corpuscular Hgb 30.1 pg (27.0-32.0); Mean Corpuscular Volume 90.8 fL (80-94); Monocyte# 1.06 X10^3/uL; Monocyte% 8.3 % (0-10); NRBC Flagged by Analyzer 0 % (0-5); Neutrophil # 10.26 X10^3/uL (2.7-7.7); Neutrophil % 80.4 % (47-70); Platelet Count 186 K/mm3 (150-450); RBC Distribution Width CV 15.5 % (11.6-14.6); RBC Distribution Width SD 51.5 fl (35.1-43.9); Red Blood Count 3.16 M/mm3 (4.6-6.2); White Blood Count 12.8 K/mm3 (4.4-11.0)
--- NOTE | 2025-05-04 07:19 | PN.HOSP_ITS ---
Reason for Visit Reason for Visit: Diagnoses Acute respiratory failure with hypoxia (05/03/25) Shortness of breath (05/03/25) Subjective Subjective Patient and mother did express a desire to stay at [facility]. Subsequently requested old records from [facility] and consultation placed to ID. Patient kidney function continues to worsen hyperkalemia persist Objective Data Objective Data Vital Signs: Vital Signs Temp Pulse Resp BP Pulse Ox O2 Del Method O2 Flow Rate 97.9 F 93 18 141/81 H 96 Nasal Cannula 2 05/04/25 02:10 05/04/25 05:27 05/04/25 05:27 05/04/25 02:10 05/04/25 02:10 05/04/25 02:10 05/04/25 02:10 FiO2 25 05/03/25 06:00 Oxygen Flow Rate (L/min) 2 Oxygen Delivery Method Nasal Cannula Weight: 42.728 kg Body Mass Index (BMI) 17.2 Intake & Output: Intake and Output for Last 24 Hours 05/02/25 05/03/25 05/04/25 23:59 23:59 23:59 Intake Total 1320 / 1320 2087.92 / 2087.92 120 / 120 Output Total 750 / 750 Balance 1320 / 1320 1337.92 / 1337.92 120 / 120 Lab / Micro Data 05/04/25 06:09 05/04/25 06:09 Labs: Laboratory Results - last 24 hr 05/03/25 11:50: Sodium 132 L, Potassium 6.1 H*, Chloride 109 H, Carbon Dioxide 15.1 L, Anion Gap 8, BUN 33 H, Creatinine 1.95 H, Estim Creat Clear Calc 33.38 L , Est GFR (MDRD) Non-Af 46 L, BUN/Creatinine Ratio 17.0, Glucose 153 H, Calcium 8.0 05/03/25 13:27: Potassium 5.9 H 05/03/25 19:18: Sodium 130 L, Potassium 5.4 H, Chloride 103, Carbon Dioxide 16.0 L, Anion Gap 11, BUN 50 H, Creatinine 2.80 H, Estim Creat Clear Calc 23.25 L, E st GFR (MDRD) Non-Af 30 L, BUN/Creatinine Ratio 17.7, Glucose 314 H, Calcium 8.1 05/03/25 21:38: POC Glucose 341 H 05/04/25 06:09: WBC 12.8 H, RBC 3.16 L, Hgb 9.5 L, Hct 28.7 L, MCV 90.8, MCH 30.1, MCHC 33.1, RDW Std Deviation 51.5 H, RDW Coeff of Erika 15.5 H, Plt Count 186, MPV 10.0, Immature Gran % (Auto) 0.900, Neut % (Auto) 80.4 H, Lymph % (Auto) 10.1 L, [place] % (Auto) 8.3, Eos % (Auto) 0.0, Baso % (Auto) 0.3, Absolute Neuts (auto) 10.3 H, Absolute Lymphs (auto) 1.29, Nucleated RBC % 0 05/04/25 06:16: POC Glucose 285 H Micro: Microbiology 05/02/25 20:20 Urine, Clean Catch Legionella Antigen - Final 05/02/25 20:20 Urine, Clean Catch Streptococcus pneumoniae Antigen (M - Final 05/03/25 02:15 Mucosa - Throat Respiratory Panel (PCR) - Final 05/03/25 01:49 Nasal Secretion MRSA (PCR) - Final 05/02/25 18:20 Mucosa - Nose SARS-CoV-2, Influenza & RSV (PCR) - Final Physical Exam Narrative GENERAL: cooperative HEENT: Atraumatic; normocephalic EYES; Anicteric, Normal Conjunctiva NECK; supple, normal thyroid, RESPIRATORY: Diminished to auscultation CARDIOVASCULAR: Regular S1 S2, GI: soft, normoactive bowel sounds, : No Renal angle tenderness; EXTREMITIES: No edema, no clubbing, MUSCULOSKELETAL: no muscle wasting NEURO: Awake; no lateralizing signs. SKIN: No Rash PSYCH; Flat affect Assessment & Plan Assessment/Plan (1) Acute hypoxic respiratory failure: PLAN: Plan Patient is a 29-year-old gentleman with history of cystic fibrosis who is followed at the [facility] presented to the emergency department with worsening dyspnea. 1. Acute hypoxic respiratory failure ? Secondary to bilateral pneumonia with bronchiectasis in a patient with cystic fibrosis. Patient admitted to regular nursing floor pending transfer to [facility]. Patient was started on meropenem and cefepime (his special services coordinator at [facility] had recommended Ceftazidimehowever not available in the hospital) consult was placed to pulmonary medicine patient seen by Dr. Chaudhary case discussed with him ? 05/04/2025; patient has been weaned off oxygen . Patient and mother did express a desire to stay at [facility]. Subsequently requested old records from [facility] and consultation placed to ID 2. Cystic fibrosis ? With pancreatic insufficiencyAnd asthma. Patient is on Trikafta and is followed by Dr. Greenfield she is at [facility] patient is currently awaiting transfer to [facility] 3. Hyperkalemia ? Present on admission treated per protocol, repeat BMP ordered for follow-up good morning ?05/04/2025; patient hyperkalemia persist despite receiving Kayexalate., Repeat Kayexalate given patient placed on telemetry monitoring repeat BMP ordered 4. Acute kidney injury ? Secondary to volume depletion. Patient creatinine from 09/02/2024 was 1.09 was 1.56 on admission started on IV hydration ? 05/04/2025; patient kidney function continues to worsen creatinine up to 3.90 ordered kidney ultrasound consultation placed to nephrology 5. Anemia ? Secondary to chronic disorder monitoring H&H and transfuse if patient becomes symptomatic or hemoglobin falls below 7 6. Diabetes mellitus type 1 ? Secondary to pancreatic insufficiency from patient cystic fibrosis. Patient was placed on Accu-Cheks AC and at bedtime with sliding scale coverage 7. Pancreatic insufficiency ? Patient is on Creon 8. GERD ? On PPI 9. Hypertension ? Blood pressure controlled, home medications continued with dose adjustment as needed 10. DVT prophylaxis ? On enoxaparin ? 05/04/2025; patient refusing enoxaparin plan was to have adjusted dose for the impaired kidney function Time spent in the patient's overall evaluation,decision-making process, review of diagnostic data, adjustment of management, discussion with other providers, nursing nursing and ancillary staff involved in patient's care documentation, 52 Minutes Charges/Coding Visit Charges Inpatient E&M: 25318 [facility] Hosp L3
[2025-05-04] MEDS: predniSONE 20 MG Tablet 40 MG PO (07:28)
[2025-05-04] MEDS: Carvedilol 25 MG Tablet PO ×2 (07:29→16:42)
[2025-05-04] MEDS: Creon 12,000 unit DR CapSULE PO ×3 (07:29→16:43)
[2025-05-04] MEDS: Acetaminophen 325 MG Tablet 650 MG PO (07:33)
[2025-05-04 07:49] LABS: ALB/GLOB Ratio 0.5 RATIO (0.9-2.4); AST(SGOT) 24 U/L (<=37); Alanine Aminotransfer ALT/SGPT 21 U/L (<=46); Albumin, Serum 2.3 g/dL (3.5-5.0); Alkaline Phosphatase 437 U/L (40-129); Anion Gap 11 (5-15); BUN 61 mg/dL (4-19); BUN/Creat Ratio 15.6 RATIO (10-20); Calcium,Total 7.9 mg/dL (7.6-11.0); Carbon Dioxide 16.9 mmol/L (21.0-32.0); Chloride 102 mmol/L (98-108); EST Glomerular Filtration Rate 20 (>60); Estimated Creatinine Clearance 16.59 ml/min (50-250); Globulin 4.7 g/dL (2.2-4.2); Glucose 294 mg/dL (70-99); Magnesium 2.2 mg/dL (1.5-2.2); Phosphorus 8.6 mg/dL (2.7-4.5); Potassium 5.8 mmol/L (3.3-5.1); Sodium Level 130 mmol/L (133-145); Total Bilirubin 0.32 mg/dL (0.00-1.30)
[2025-05-04] MEDS: Insulin Lispro 100 UNIT/ML INSULN.PEN SC ×4 (08:52→21:37)
--- NOTE | 2025-05-04 09:26 | US_ITS ---
EXAM: US Retroperitoneal Limited, Renal CLINICAL INDICATION: RITA TECHNIQUE: Real-time limited ultrasound of the retroperitoneum with image documentation. COMPARISON: No relevant prior studies available. FINDINGS: RIGHT KIDNEY: Unremarkable. No stones. No hydronephrosis. The right kidney measures 10.5 x 4.8 x 5.9 cm. LEFT KIDNEY: Unremarkable. No stones. No hydronephrosis. The left kidney measures 11.1 x 5.2 x 5.8 cm. BLADDER: Unremarkable urinary bladder. US/Kidney and Bladder IMPRESSION: No acute findings in the retroperitoneum. Reading Location: [facility]
[2025-05-04] MEDS: ELEXACAFTOR/TEZACAFTOR/IVACAFT 1 EACH TABLET.SEQ PO (10:01)
--- NOTE | 2025-05-04 10:30 | CASEMGMT ---
OLEKSANDR CAMILO informed by Hospitalist that pt is being transferred to [facility] for care.
--- NOTE | 2025-05-04 10:31 | NURSING ---
[facility] transfer called for bed status update: no bed at this time, states is a priority but awaiting discharges.
[2025-05-04] MEDS: Cefepime HCl 2 GM in 0.9% Normal Saline (100mL MB+) 100 ML IV (10:42)
[2025-05-04] MEDS: Sodium Polystyrene Sulfonate 15 GM/60 ML UDC 60 GM PO (10:53)
[2025-05-04] MEDS: Meropenem 500 MG in 0.9% Normal Saline (50mL MB+) 50 ML 100 MG IV ×2 (11:56→22:55)
--- NOTE | 2025-05-04 13:39 | CON.PCM.ID_ITS ---
Assessment & Plan Assessment/Plan (1) Cystic fibrosis: (2) Pneumonia: PLAN: Resp pcr panel neg. [facility] resp cx mid-March with small growth Burkholderia. Not producing sputum here. Seen by pulm, transfer planned. Feeling better. Will order picc and continue vanc/larisa. Will follow, thank you, d/w primary team HPI Consult Data Date of Consult: 05/04/25 HPI Narrative Reason for Consultation: pneumonia HPI Narrative: VERENICE SAENZ, is a 29 M with cystic fibrosis, last admit for resp infection was 08/2024. Some mild URIs over the winter. Presented to ED 05/03 with 4-5 days acute worsening dyspnea, dry cough, fatigue, not feeling well. No sick contacts. No n/v/d. No recent abx. Had outpt sputum cx done about 3-4 weeks ago which showed small amount burkholderia. Came to ED, admitted on vanc/larisa, feeling better today. Full ROS performed and neg except as noted above. [facility] Medical History Pancreatic insufficiency Type 1 diabetes mellitus Chronic anemia Alcohol abuse Asthma GERD (gastroesophageal reflux disease) HTN (hypertension) Cystic fibrosis Home Medications ?Medication ?Instructions ?Recorded ?Last Taken ?Type elexacaftor 100 mg-tezacaf 2 ea PO DAILY CF 11/14/19 0 05/02/25 History 50mg-ivacaf 75mg(d)/ivacaf 150mg(n) tablets bsnbge-[id number]-ddfajhq 2 - 3 cap PO TIDCM CF 05/02/25 History 36,000-114,000-180,000 unit capsule,delay rel insulin glargine 100 unit/mL (3 8 unit SQ QHS DM 07/0405/02/25 History mL) subcutaneous pen insulin lispro 100 unit/mL See Protocol SQ TIDCM diabe rafael 07/04/20 05/02/25 History subcutaneous pen albuterol sulfate 90 mcg/actuation 2 puff inhalation Q 4H PRN PRN 08/31/24 05/02/25 History aerosol inhaler (Ventolin HFA) wheezing blood sugar diagnostic (OneTouch 08/31/24 Unknown His tory Verio test strips) blood-glucose sensor (Dexcom G7 08/31/24 Unknown Hist ory Sensor device) carvedilol 25 mg tablet 25 mg PO BID heart/ blood pr essure 08/31/24 05/02/25 History dornase christi 1 mg/mL solution for 2.5 mg inhalation DA ROLAND breathing 08/31/24 05/02/25 History inhalation (Pulmozyme) ipratropium 0.5 mg-albuterol 3 mg 3 ml inhalation Q4H PRN PRN 08/31/24 05/02/25 History (2.5 mg base)/3 mL nebulization wheezing soln polyethylene glycol 3350 17 17 g PO DAILY PRN constipa tion 08/31/24 Unknown History gram/dose oral powder Allergy/AdvReac Type Severity Reaction Status Date / Time cefoxitin AdvReac Intermediate Upset Verified 05/02/25 17:29 Stomach Family History Mother Breast cancer CAD (coronary artery disease) Heart disease Hypertension Myocardial infarction Father Leukemia Family History no significant family his Surgical History H/O intra-abdominal venous shunt Social History household members: family Smoking Status: Never smoker alcohol intake: former details: Sober since 2021. substance use type: does not use Physical Exam Const alert, oriented x3 and no apparent distress General Appearance: cooperative HEENT normocephalic and head/scalp atraumatic Eyes PERRL and EOMs intact bilaterally Neck supple and No nodes Resp Resp Narrative: L sided rhonchi Cardio regular rate and regular rhythm GI soft to palpation, non-tender and non-distended Extremity General Extremity: Negative for edema Skin no rashes or lesions noted Neuro CN's II-XII intact bilaterally Lab / Micro Data Attestation: I reviewed the patient's lab results. 05/04/25 06:09 05/04/25 06:09 Labs: Laboratory Results - last 24 hr 05/03/25 13:27: Potassium 5.9 H 05/03/25 19:18: Sodium 130 L, Potassium 5.4 H, Chloride 103, Carbon Dioxide 16.0 L, Anion Gap 11, BUN 50 H, Creatinine 2.80 H, Estim Creat Clear Calc 23.25 L, E st GFR (MDRD) Non-Af 30 L, BUN/Creatinine Ratio 17.7, Glucose 314 H, Calcium 8.1 05/03/25 21:38: POC Glucose 341 H 05/04/25 06:09: WBC 12.8 H, RBC 3.16 L, Hgb 9.5 L, Hct 28.7 L, MCV 90.8, MCH 30.1, MCHC 33.1, RDW Std Deviation 51.5 H, RDW Coeff of Erika 15.5 H, Plt Count 186, MPV 10.0, Immature Gran % (Auto) 0.900, Neut % (Auto) 80.4 H, Lymph % (Auto) 10.1 L, [place] % (Auto) 8.3, Eos % (Auto) 0.0, Baso % (Auto) 0.3, Absolute Neuts (auto) 10.3 H, Absolute Lymphs (auto) 1.29, Nucleated RBC % 0, Sodium 130 L, Potassium 5.8 H, Chloride 102, Carbon Dioxide 16.9 L, Anion Gap 11, BUN 61 H, Creatinine 3.90 H, Estim Creat Clear Calc 16.59 L, Est GFR (MDRD) Non-Af 20 L, BUN/Creatinine Ratio 15.6, Glucose 294 H, Calcium 7.9, Phosphorus 8.6 H, Magnesium 2.2, Total Bilirubin 0.32, AST 24, ALT 21, Alkaline Phosphatase 437 H, Total Protein 7.0, Albumin 2.3 L, Globulin 4.7 H, Albumin/Globulin Ratio 0.5 L 05/04/25 06:16: POC Glucose 285 H Micro: Microbiology 05/02/25 20:20 Urine, Clean Catch Legionella Antigen - Final 05/02/25 20:20 Urine, Clean Catch Streptococcus pneumoniae Antigen (M - Final Imaging Radiology Impression Renal Ultrasound 05/04/25 09:26 IMPRESSION: No acute findings in the retroperitoneum. Reading Location[facility]
--- NOTE | 2025-05-04 15:05 | PCM.CONS.R ---
Assessment & Plan Assessment/Plan (1) RITA (acute kidney injury): (2) Hyperkalemia: (3) Acute hypoxic respiratory failure: (4) Cystic fibrosis: PLAN: Plan This is a pleasant 29-year-old male with past medical history significant for cystic fibrosis on Trikafta, IDDM complicated by underlying pancreatic insufficiency, GERD, hypertension who presented to the emergency room on May 03 with complaints of dyspnea, admitted for acute hypoxic respiratory failure secondary to pneumonia with history of asthma and cystic fibrosis. Patient was initially on BiPAP, fortunately respiratory status has improved now he is on room air. Nephrology consulted in view of elevated creatinine. In reviewing past creatinine trends patient has normal baseline creatinine as of August 2024. On admission, May 02 creatinine 1.56 and today his creatinine is 3.90. Potassium was 5.7 on admission, peaked at 6.1 yesterday and today potassium 5.8. Nonoliguric RITA possibly from initial volume depletion on admission, possible contrast exposure. Patient has been on vancomycin, will obtain Vanco level today. His UA did show some protein and small amount of blood, will obtain urine protein creatinine ratio and complements. Overall volume status appears near euvolemic. Renal ultrasound did not show any hydronephrosis. Blood pressures have improved since admission, in the emergency room systolic blood pressure around 210. No recent SEVERINO or ARB's. Patient is on carvedilol for blood pressure control. Patient does have urine output but states he has noted urine amount to decrease. Recommend strict I&O. At this time there is no acute indication for renal placement therapy. Explained in detail with patient and his mother who is at bedside renal function, possible trajectory of renal function and/or if renal function worsens and/or urine output declines patient may be heading towards renal placement therapy. All questions were answered. For his hyperkalemia patient did receive Kayexalate 60 g today. Will add low potassium diet restrictions. Also reviewed this with patient. Labs ordered for morning. Further orders forthcoming as hospitalization evolves, thank you for allowing us to participate in the care of Mr. Saenz. Assessment and plan reviewed with Dr. Liao. HPI Consult Data Date of Consult: 05/04/25 HPI Narrative HPI Narrative: VERENICE SAENZ, is a 29 M with past medical history significant for cystic fibrosis on Trikafta, IDDM complicated by underlying pancreatic insufficiency, GERD, hypertension who presented to the emergency room on May 03 with complaints of dyspnea. Workup in the emergency room patient had CTA of chest with no evidence of PE, patient was initially placed on BiPAP, patient was administered IV antibiotics vancomycin and meropenem, he was also given a liter of normal saline and admitted for acute hypoxic respiratory failure secondary to bilateral pneumonia with history complicated by underlying asthma and cystic fibrosis. Nephrology consulted for RITA. Patient reports that he does not routinely see nephrology in outpatient basis but does state when admitted to hospital for acute respiratory failure has been seen by nephrology for elevated potassium and RITA. Patient reports has never required hemodialysis. Patient reports before coming to hospital he had been feeling unwell for few weeks, also experiencing left-sided pain therefore had been taking ibuprofen and/or Aleve intermittently. Denies any hematuria, denies dysuria. No new oral medications. Denies rash or arthralgias. Patient denied any vomiting, diarrhea before coming to hospital. Patient reports appetite is poor today but no vomiting. Patient is complaining of hands feeling puffy. Patient states he feels he is completely emptying his bladder, no lower abdominal pain or fullness. ON LICENSE OF [facility] Medical History Pancreatic insufficiency Type 1 diabetes mellitus Chronic anemia Alcohol abuse Asthma GERD (gastroesophageal reflux disease) HTN (hypertension) Cystic fibrosis Home Medications ?Medication ?Instructions ?Recorded ?Last Taken ?Type elexacaftor 100 mg-tezacaf 2 ea PO DAILY CF 11/14/19 05/02/25 History 50mg-ivacaf 75mg(d)/ivacaf 150mg(n) tablets flfsak-lfouvvrj-ntkadna 2 - 3 cap PO TIDCM CF 11/14/19 05/02/25 History 36,000-114,000-180,000 unit capsule,delay rel insulin glargine 100 unit/mL (3 8 unit SQ QHS DM 07/04/20 05/02/25 History mL) subcutaneous pen insulin lispro 100 unit/mL See Protocol SQ TIDCM diabetes 07/04/20 05/02/25 History subcutaneous pen albuterol sulfate 90 mcg/actuation 2 puff inhalation Q4H PRN PRN 08/31/24 05/02/25 History aerosol inhaler (Ventolin HFA) wheezing blood sugar diagnostic (OneTouch 08/31/24 Unknown History Verio test strips) blood-glucose sensor (Dexcom G7 08/31/24 Unknown History Sensor device) carvedilol 25 mg tablet 25 mg PO BID heart/ blood pressure 08/31/24 05/02/25 History dornase christi 1 mg/mL solution for 2.5 mg inhalation DAILY breathing 08/31/24 05/02/25 History inhalation (Pulmozyme) ipratropium 0.5 mg-albuterol 3 mg 3 ml inhalation Q4H PRN PRN 08/31/24 05/02/25 History (2.5 mg base)/3 mL nebulization wheezing soln polyethylene glycol 3350 17 17 g PO DAILY PRN constipation 08/31/24 Unknown History gram/dose oral powder Allergy/AdvReac Type Severity Reaction Status Date / Time cefoxitin AdvReac Intermediate Upset Verified 05/02/25 17:29 Stomach Family History Mother Breast cancer CAD (coronary artery disease) Heart disease Hypertension Myocardial infarction Father Leukemia Family History no significant family his Surgical History H/O intra-abdominal venous shunt Social History household members: family Smoking Status: Never smoker alcohol intake: former details: Sober since 2021. substance use type: does not use ROS ROS Narrative As in HPI Physical Exam Narrative Alert and oriented x 3, no apparent distress S1, S2, RRR Lungs sound clear. No rales, rhonchi or or wheezing noted. On room air Abdomen soft, nontender No pitting edema bilateral legs. Nonpitting edema bilateral hands Lab / Micro Data 05/04/25 06:09 05/04/25 06:09 Labs: Laboratory Results - last 24 hr 05/03/25 19:18: Sodium 130 L, Potassium 5.4 H, Chloride 103, Carbon Dioxide 16.0 L, Anion Gap 11, BUN 50 H, Creatinine 2.80 H, Estim Creat Clear Calc 23.25 L, Est GFR (MDRD) Non-Af 30 L, BUN/Creatinine Ratio 17.7, Glucose 314 H, Calcium 8.1 05/03/25 21:38: POC Glucose 341 H 05/04/25 06:09: WBC 12.8 H, RBC 3.16 L, Hgb 9.5 L, Hct 28.7 L, MCV 90.8, MCH 30.1, MCHC 33.1, RDW Std Deviation 51.5 H, RDW Coeff of Erika 15.5 H, Plt Count 186, MPV 10.0, Immature Gran % (Auto) 0.900, Neut % (Auto) 80.4 H, Lymph % (Auto) 10.1 L, [place] % (Auto) 8.3, Eos % (Auto) 0.0, Baso % (Auto) 0.3, Absolute Neuts (auto) 10.3 H, Absolute Lymphs (auto) 1.29, Nucleated RBC % 0, Sodium 130 L, Potassium 5.8 H, Chloride 102, Carbon Dioxide 16.9 L, Anion Gap 11, BUN 61 H, Creatinine 3.90 H, Estim Creat Clear Calc 16.59 L, Est GFR (MDRD) Non-Af 20 L, BUN/Creatinine Ratio 15.6, Glucose 294 H, Calcium 7.9, Phosphorus 8.6 H, Magnesium 2.2, Total Bilirubin 0.32, AST 24, ALT 21, Alkaline Phosphatase 437 H, Total Protein 7.0, Albumin 2.3 L, Globulin 4.7 H, Albumin/Globulin Ratio 0.5 L 05/04/25 06:16: POC Glucose 285 H Micro: Microbiology 05/02/25 20:20 Urine, Clean Catch Legionella Antigen - Final 05/02/25 20:20 Urine, Clean Catch Streptococcus pneumoniae Antigen (M - Final Imaging Radiology Impression Renal Ultrasound 05/04/25 09:26 IMPRESSION: No acute findings in the retroperitoneum. Reading Location[facility]
[2025-05-04] MEDS: Lorazepam 2 MG/ML WCH Syringe 0.5 MG IV (15:24)
[2025-05-04] MEDS: 0.9% Saline Lock 10 ML Syringe IV (15:25)
--- NOTE | 2025-05-04 16:08 | CASEMGMT ---
Social Work- SW spoke with Paco Andrews CM, to provide updates. Juliana asked to speak to pt; CROW transferred call. HEIDY Barclay
--- NOTE | 2025-05-04 16:47 | MDS.RN ---
update given to [facility] transfer center. bed assignment given of [facility] main [place], [address]- bed 10. [phone] Dr. Esparza Pulmonary.
--- NOTE | 2025-05-04 16:58 | PCM.DC.SUM ---
Providers Date of Admission: 05/03/25 Date of Discharge: 05/04/25 Primary Care Physician: Lalita Primary Care Phys Consultations 05/03/25 01:41 Consult: Leave Manager / Pulmonary Medicine Routine Consulting Provider: Intensivists/Pulmonary Med Reason for Consult: Resp failure, PNA, CF, pending txf CC bed. EMERGENT Consult: No Notified: Yes Date Notified: 05/03/25 Time Notified: 05:14 Method of Notification: Text 05/04/25 07:04 Consult: Infectious Disease Routine Consulting Provider: Louie Augustine Reason for Consult: Pseudomonas infection in the patient with cystic fibrosis EMERGENT Consult: No Notified: Yes Date Notified: 05/04/25 Time Notified: 07:30 Method of Notification: Text 05/04/25 09:26 Consult: Nephrology Routine Consulting Provider: Yaritza Liao Reason for Consult: rita EMERGENT Consult: No Notified: Yes Date Notified: 05/04/25 Time Notified: 09:40 Method of Notification: Answering Service Reason For Visit: RESP FAILURE, PNA Diagnosis Discharge Diagnosis (1) RITA (acute kidney injury): Status: Acute Code(s): N17.9 - Acute kidney failure, unspecified (2) Hyperkalemia: Status: Acute Code(s): E87.5 - Hyperkalemia (3) Acute hypoxic respiratory failure: Status: Acute Code(s): J96.01 - Acute respiratory failure with hypoxia (4) Cystic fibrosis: Status: Acute Code(s): E84.9 - Cystic fibrosis, unspecified Plan Patient is a 29-year-old gentleman with history of cystic fibrosis who is followed at the [facility] presented to the emergency department with worsening dyspnea. 1. Acute hypoxic respiratory failure ? Secondary to bilateral pneumonia with bronchiectasis in a patient with cystic fibrosis. Patient admitted to regular nursing floor pending transfer to [facility]. Patient was started on meropenem and cefepime (his product engineer at [facility] had recommended Ceftazidimehowever not available in the hospital) consult was placed to pulmonary medicine patient seen by Dr. Chaudhary case discussed with him ? 05/04/2025; patient has been weaned off oxygen . Patient and mother did express a desire to stay at [facility]. Subsequently requested old records from [facility] and consultation placed to ID 05/04/2025; patient was transferred to [facility] once platelets obtained 2. Cystic fibrosis ? With pancreatic insufficiencyAnd asthma. Patient is on Trikafta and is followed by Dr. Greenfield she is at [facility] patient is currently awaiting transfer to [facility] 3. Hyperkalemia ? Present on admission treated per protocol, repeat BMP ordered for follow-up good morning ?05/04/2025; patient hyperkalemia persist despite receiving Kayexalate., Repeat Kayexalate given patient placed on telemetry monitoring repeat BMP ordered 4. Acute kidney injury ? Secondary to volume depletion. Patient creatinine from 09/02/2024 was 1.09 was 1.56 on admission started on IV hydration ? 05/04/2025; patient kidney function continues to worsen creatinine up to 3.90 ordered kidney ultrasound consultation placed to nephrology 5. Anemia ? Secondary to chronic disorder monitoring H&H and transfuse if patient becomes symptomatic or hemoglobin falls below 7 6. Diabetes mellitus type 1 ? Secondary to pancreatic insufficiency from patient cystic fibrosis. Patient was placed on Accu-Cheks AC and at bedtime with sliding scale coverage 7. Pancreatic insufficiency ? Patient is on Creon 8. GERD ? On PPI 9. Hypertension ? Blood pressure controlled, home medications continued with dose adjustment as needed 10. DVT prophylaxis ? On enoxaparin ? 05/04/2025; patient refusing enoxaparin plan was to have adjusted dose for the impaired kidney function Time spent in the patient's overall evaluation,decision-making process, review of diagnostic data, adjustment of management, discussion with other providers, nursing nursing and ancillary staff involved in patient's care documentation, 52 Minutes Medications at Discharge Home Medications elexacaftor 100 mg-tezacaf 50mg-ivacaf 75mg(d)/ivacaf 150mg(n) tablets 2 ea PO DAILY CF 11/14/19 aotuzo-azpsxkmh-yspnfuz 36,000-114,000-180,000 unit capsule,delay rel 2 - 3 cap PO TIDCM CF 11/14/19 insulin glargine 100 unit/mL (3 mL) subcutaneous pen 8 unit SQ QHS DM 07/04/20 insulin lispro 100 unit/mL subcutaneous pen See Protocol SQ TIDCM diabetes 07/04/20 albuterol sulfate 90 mcg/actuation aerosol inhaler (Ventolin HFA) 2 puff inhalation Q4H PRN PRN wheezing 08/31/24 blood sugar diagnostic (OneTouch Verio test strips) 08/31/24 blood-glucose sensor (Dexcom G7 Sensor device) 08/31/24 carvedilol 25 mg tablet 25 mg PO BID heart/ blood pressure 08/31/24 dornase christi 1 mg/mL solution for inhalation (Pulmozyme) 2.5 mg inhalation DAILY breathing 08/31/24 ipratropium 0.5 mg-albuterol 3 mg (2.5 mg base)/3 mL nebulization soln 3 ml inhalation Q4H PRN PRN wheezing 08/31/24 polyethylene glycol 3350 17 gram/dose oral powder 17 g PO DAILY PRN constipation 08/31/24 Physical Exam Narrative GENERAL: cooperative HEENT: Atraumatic; normocephalic EYES; Anicteric, Normal Conjunctiva NECK; supple, normal thyroid, RESPIRATORY: Diminished to auscultation CARDIOVASCULAR: Regular S1 S2, GI: soft, normoactive bowel sounds, : No Renal angle tenderness; EXTREMITIES: No edema, no clubbing, MUSCULOSKELETAL: no muscle wasting NEURO: Awake; no lateralizing signs. SKIN: No Rash PSYCH; Flat affect Weight / BMI Weight Weight: 42.728 kg Body Mass Index (BMI) 17.2 ABG / Lab / Microbiology Data 05/04/25 06:09 05/04/25 06:09 Laboratory: Laboratory Results - last 24 hr 05/03/25 19:18: Sodium 130 L, Potassium 5.4 H, Chloride 103, Carbon Dioxide 16.0 L, Anion Gap 11, BUN 50 H, Creatinine 2.80 H, Estim Creat Clear Calc 23.25 L, Est GFR (MDRD) Non-Af 30 L, BUN/Creatinine Ratio 17.7, Glucose 314 H, Calcium 8.1 05/03/25 21:38: POC Glucose 341 H 05/04/25 06:09: WBC 12.8 H, RBC 3.16 L, Hgb 9.5 L, Hct 28.7 L, MCV 90.8, MCH 30.1, MCHC 33.1, RDW Std Deviation 51.5 H, RDW Coeff of Erika 15.5 H, Plt Count 186, MPV 10.0, Immature Gran % (Auto) 0.900, Neut % (Auto) 80.4 H, Lymph % (Auto) 10.1 L, Teller % (Auto) 8.3, Eos % (Auto) 0.0, Baso % (Auto) 0.3, Absolute Neuts (auto) 10.3 H, Absolute Lymphs (auto) 1.29, Nucleated RBC % 0, Sodium 130 L, Potassium 5.8 H, Chloride 102, Carbon Dioxide 16.9 L, Anion Gap 11, BUN 61 H, Creatinine 3.90 H, Estim Creat Clear Calc 16.59 L, Est GFR (MDRD) Non-Af 20 L, BUN/Creatinine Ratio 15.6, Glucose 294 H, Calcium 7.9, Phosphorus 8.6 H, Magnesium 2.2, Total Bilirubin 0.32, AST 24, ALT 21, Alkaline Phosphatase 437 H, Total Protein 7.0, Albumin 2.3 L, Globulin 4.7 H, Albumin/Globulin Ratio 0.5 L 05/04/25 06:16: POC Glucose 285 H Microbiology: Microbiology 05/02/25 20:20 Urine, Clean Catch Legionella Antigen - Final 05/02/25 20:20 Urine, Clean Catch Streptococcus pneumoniae Antigen (M - Final 05/03/25 02:15 Mucosa - Throat Respiratory Panel (PCR) - Final 05/03/25 01:49 Nasal Secretion MRSA (PCR) - Final 05/02/25 18:20 Mucosa - Nose SARS-CoV-2, Influenza & RSV (PCR) - Final Radiography Diagnostic Testing: Radiology Impression Renal Ultrasound 05/04/25 09:26 IMPRESSION: No acute findings in the retroperitoneum. Reading [facility] Instructions Discharge Diet: 1800 Calorie Control Diet Discharge Activity: Return to Normal Activity Call your doctor if you observe: Fever of 101 or Higher, Shortness of breath, Fainting spells and Chest pain DC O2, CPAP, BIPAP Needs Home O2 Discharge instructions: No Meaningful Use Info Meaningful Use Meaningful Use Diagnoses (Choose all that apply): None applicable Ischemic Stroke Statin Dosing Therapy Reference: STATIN DOSE THERAPY REFERENCE: * Patients > 75 years receive moderate or high dose statin therapy. * Patients 75 years or YOUNGER should receive HIGH intensity statin dose unless contraindicated. You will be required to document reason for non-treatment if statin daily dose does not meet guidelines. HIGH DOSE STATIN THERAPY DAILY Atorvastatin > than or = to 40 mg Rosuvastatin > than or = to 20 mg Amlodipine + Atorvastatin > than or = to 2.5/40 mg Ezetimibe + Simvastatin 10/80 mg Simvastatin 80mg Discharge Plan Admission Admit Date/Time: 05/03/25 00:52 Attending Provider: Chris Jeroem Primary Care Provider: Care Physician,No Primary Consulting Providers: Gretchen Kingston; Jarred Singleton; Isra Mario; Toñito Cui; Wilder Chaudhary; Chris Gore; Miguel Whitehead; Berlin Tang; Stacie Morris; Geraldo Covington; Abiodun Rey; Laci Brady; Eladia Balbuena; Hardik Marley; Starr Culp; Smith Ramos; Ricki Lyons; Jerel Jaimes; Mal Vee; Nela Manrique; Carol Gooden; García Qureshi; Ever Lackey; Fernie Lee; Louie Augustine; Yaritza Liao Discharge Orders/Prescriptions Prescriptions: Continued cculfh-naaxgnwz-edlbjiw 1 EACH capsule,delayed release(DR/EC) 2 - 3 cap PO TIDCM Rx Instructions: TAKE 3 CAPS WITH MEALS AND 2 CAPS WITH SNACKS lfcaglmxgxr-jmyuqtrmnx-flidrxa 1 EACH tablets, sequential 2 ea PO DAILY Patient Comments: PT STATES ONLY TAKES THE 2 MORNING TABS AND SKIPS THE EVENING DOSE. insulin lispro 100 UNIT/ML insulin pen See Protocol SQ TIDCM Protocol: 2. Sliding Scale Insulin Low-Med Dosing Condition: 150-209 mg/dl = 1 unit Condition: 210-269 mg/dl = 2 units Condition: 270-329 mg/dl = 3 units Condition: 330-389 mg/dl = 4 units Condition: 390-449 mg/dl = 5 units Condition: Greater than 449 call physician Protocol Text: - Use for Total Daily Dose of Insulin 28-36 units - Average size patients LOW MEDIUM DOSING ALGORITHM Patient Comments: carb scale per pt insulin glargine 100 UNIT/ML insulin pen 8 unit SQ QHS carvedilol 25 mg tablet 25 mg PO BID (DME) OneTouch Verio test strips Strip 1 strip MISCELLANEOUS TID albuterol sulfate [Ventolin HFA] 90 mcg/actuation HFA aerosol inhaler 2 puff INHALATION Q4H PRN PRN (Reason: wheezing) (DME) Dexcom G7 Sensor Device MISCELLANEOUS Patient Comments: [NO ORIGINAL SIG] Pulmozyme 1 mg/mL solution 2.5 mg inhalation DAILY ipratropium-albuterol 0.5 mg-3 mg(2.5 mg base)/3 mL solution for nebulization 3 ml inhalation Q4H PRN PRN (Reason: wheezing) polyethylene glycol 3350 17 gram/dose powder 17 g PO DAILY PRN (Reason: constipation) Referrals / Follow Up: Care Physician,No Primary [Primary Care Provider] - Within 2 Weeks Disposition Disposition (needs filled in before D/C Order can be placed): Acute Care Hospital Charges/Coding Visit Charges Inpatient E&M: 45421 Disch Hosp >30min
--- NOTE | 2025-05-04 17:33 | PCM.PN.TICU ---
Objective Data Objective Data Vital Signs: Vital Signs Last response Temperature 36.8 C 05/04/25 15:12 Temperature Source Oral 05/04/25 15:12 Pulse Rate 102 H 05/04/25 15:12 Pulse Strength Normal (2+) 05/04/25 09:18 Respiratory Rate 16 05/04/25 15:12 Respiratory Effort Normal 05/04/25 14:09 Respiratory Depth Normal 05/04/25 14:09 Respiratory Pattern Normal 05/04/25 14:53 Blood Pressure 160/105 H 05/04/25 15:12 Blood Pressure Mean 123 05/04/25 15:12 Blood Pressure Source Monitor 05/04/25 15:12 Blood Pressure Position Semi-Fowlers 05/04/25 15:12 Blood Pressure Location Right Arm 05/04/25 15:12 Pulse Ox 96 05/04/25 15:12 Oxygen Delivery Method Room Air 05/04/25 15:12 Oxygen Flow Rate (L/min) 2 05/04/25 02:10 Fraction of Inspired Oxygen (FIO2) 25 05/03/25 06:00 I&O: I&O Last 24 Hours 05/03/25 05/04/25 05/04/25 23:59 11:59 23:59 Intake Total 1085.25 / 2087.92 470 / 530 60 / 530 Balance 1085.25 / 1337.92 470 / 530 60 / 530 I&O: Total Stay 05/02/25 17:26 thru 05/04/25 13:00 Intake Total 3937.92 Output Total 750 Balance 3187.92 Current Meds Ordered / Administered: Current meds ordered / Administered Generic Name Dose Route Start Last Admin Trade Name Freq PRN Reason Stop Dose Admin Acetaminophen 650 mg 05/03/25 01:41 05/04/25 07:33 Acetaminophen 325 Mg Tablet PO 650 mg Q4H PRN PRN Administration Fever, pain 1-10 Albuterol Sulfate 2.5 mg 05/03/25 01:41 05/03/25 07:09 Albuterol 2.5 Mg/3 Ml Vial.Neb. INHALATION 2.5 mg Q2H PRN PRN Administration Dyspnea, wheezing Albuterol/Ipratropium 3 ml 05/03/25 01:41 05/04/25 14:52 Ipratropium/Albuterol Sulfate 3 Ml Ampul.Neb INHALATION 3 ml Q4HWA.RT ABRAHAM Administration Carvedilol 25 mg 05/03/25 08:00 05/04/25 16:42 Carvedilol 25 Mg Tablet PO 25 mg BIDCM ABRAHAM Administration Protocol Diphenhydramine HCl 25 mg 05/03/25 19:00 05/03/25 20:19 Diphenhydramine 50 Mg/Ml Syringe IV 25 mg DAILY@1900 ABRAHAM Administration Enoxaparin Sodium 30 mg 05/05/25 10:00 Enoxaparin 30 Mg/0.3 Ml Syringe SC DAILY ABRAHAM Glucagon 1 mg 05/03/25 01:41 Glucagon 1 Mg/Ml Syringe IM X1 PRN HYPOGLYCEMIA Protocol Guaifenesin 10 ml 05/03/25 01:41 Guaifenesin 10 Ml Udc (200mg/10ml) PO Q4H PRN PRN COUGH Hydralazine HCl 10 mg 05/03/25 01:41 Hydralazine 20 Mg/Ml Vial IV Q4H PRN PRN SBP > 160 Protocol Vancomycin IV-PHARMACY TO DOSE 500 mls @ 250 mls/hr 05/03/25 01:41 1 each/ Sodium Chloride IV X1 PRN Rx to Dose Protocol Dextrose 250 mls @ 0 mls/hr 05/03/25 01:41 Dextrose 10%-Water IV .Q0M PRN HYPOGLYCEMIA Protocol As Directed Sodium Chloride 250 mls @ 15 mls/hr 05/03/25 01:44 05/03/25 20:20 IV 0 mls/hr .[id number] PRN Infusion Saline Flush Sodium Chloride 250 mls @ 15 mls/hr 05/03/25 01:44 IV .[id number] PRN Additional IVPB Infusion Cefepime HCl 2 gm/ Sodium 100 mls @ 200 mls/hr 05/04/25 10:00 05/04/25 11:58 Chloride IV Infused Q24 ABRAHAM Infusion Meropenem 500 mg/ Sodium 60 mls @ 100 mls/hr 05/04/25 10:00 05/04/25 13:00 Chloride IV Infused Q12 ABRAHAM Infusion Insulin Glargine 8 unit 05/03/25 22:00 05/03/25 21:40 Insulin Glargine-Yfgn 100 Unit/Ml Pen SC 8 unit QHS ABRAHAM Administration Insulin Human Lispro 0 unit 05/03/25 07:00 05/04/25 16:40 Insulin Lispro 100 Unit/Ml Insuln.Pen SC 5 u ACHS ABRAHAM Administration Protocol Lorazepam 0.5 mg 05/04/25 13:48 05/04/25 15:24 Lorazepam 2 Mg/Ml Wch Syringe IV 0.5 mg Q6H PRN PRN Administration ANXIETY/RESTLESSNESS/SLEEP Melatonin 3 mg 05/03/25 01:41 Melatonin 3 Mg Tablet PO QHS PRN PRN INSOMNIA Ondansetron HCl 4 mg 05/03/25 01:41 Ondansetron 4 Mg/2 Ml Vial IV Q8H PRN PRN NAUSEA/VOMITING Pancrelipase 6 - 9 cap 05/03/25 08:00 05/04/25 16:43 Creon 12,[address] Capsule PO 6 cap TIDCM ABRAHAM Administration Polyethylene Glycol 17 gm 05/03/25 02:12 Polyethylene Glycol 3350 17 Gm Packet PO DAILY PRN PRN constipation Prednisone 40 mg 05/03/25 08:00 05/04/25 07:28 Prednisone 20 Mg Tablet PO 40 mg BREAKFAST ABRAHAM Administration Prochlorperazine Edisylate 5 mg 05/03/25 01:41 Prochlorperazine 10 Mg/2 Ml Vial IV Q4H PRN PRN Breakthrough Nausea/Vomiting Senna/Docusate Sodium 2 tablet 05/03/25 01:41 Senna/Docusate Sodium 1 Tablet PO BID PRN PRN Constipation Sodium Chloride 10 - 40 ml 05/03/25 01:44 05/04/25 15:25 0.9% Saline Lock 10 Ml Syringe IV 10 ml UD PRN Administration SALINE FLUSH Vancomycin Protocol 1 lab 05/04/25 18:00 Vancomycin Trough/Random Due MC 05/04/25 20:00 DAILY [facility] Lab / Micro Data 05/04/25 06:09 05/04/25 06:09 Labs: Laboratory Results - last 24 hr 05/03/25 19:18: Sodium 130 L, Potassium 5.4 H, Chloride 103, Carbon Dioxide 16.0 L, Anion Gap 11, BUN 50 H, Creatinine 2.80 H, Estim Creat Clear Calc 23.25 L, Est GFR (MDRD) Non-Af 30 L, BUN/Creatinine Ratio 17.7, Glucose 314 H, Calcium 8.1 05/03/25 21:38: POC Glucose 341 H 05/04/25 06:09: WBC 12.8 H, RBC 3.16 L, Hgb 9.5 L, Hct 28.7 L, MCV 90.8, MCH 30.1, MCHC 33.1, RDW Std Deviation 51.5 H, RDW Coeff of Erika 15.5 H, Plt Count 186, MPV 10.0, Immature Gran % (Auto) 0.900, Neut % (Auto) 80.4 H, Lymph % (Auto) 10.1 L, Preston % (Auto) 8.3, Eos % (Auto) 0.0, Baso % (Auto) 0.3, Absolute Neuts (auto) 10.3 H, Absolute Lymphs (auto) 1.29, Nucleated RBC % 0, Sodium 130 L, Potassium 5.8 H, Chloride 102, Carbon Dioxide 16.9 L, Anion Gap 11, BUN 61 H, Creatinine 3.90 H, Estim Creat Clear Calc 16.59 L, Est GFR (MDRD) Non-Af 20 L, BUN/Creatinine Ratio 15.6, Glucose 294 H, Calcium 7.9, Phosphorus 8.6 H, Magnesium 2.2, Total Bilirubin 0.32, AST 24, ALT 21, Alkaline Phosphatase 437 H, Total Protein 7.0, Albumin 2.3 L, Globulin 4.7 H, Albumin/Globulin Ratio 0.5 L 05/04/25 06:16: POC Glucose 285 H Micro: Microbiology 05/02/25 20:20 Urine, Clean Catch Legionella Antigen - Final 05/02/25 20:20 Urine, Clean Catch Streptococcus pneumoniae Antigen (M - Final Imaging Radiology Impression Renal Ultrasound 05/04/25 09:26 IMPRESSION: No acute findings in the retroperitoneum. Reading Location: [facility] Assessment and Plan . Assessment and plan: HPI Patient seen and examined Chart and data reviewed He is in NAD - breathing RA comfortably at rest Micro (-) CT reviewed He tells me he is going to [place] later today EXAM GEN NAD VS as above HEENT o/p clear NECK supple COR RRR CHEST basilar crackles ABD soft EXT minimal edema SKIN w/d ZAIDA NF ASSESSMENT/PLAN 1. Dyspnea / hypoxemia 2. CF w/ advanced chronic lung disease 3. Renal insufficiency -O2 as needed -continue ABX, steroids, inhaled BD, B-P hygiene -nephrology following The entirety of this encounter was done via Telemedicine
[2025-05-04 18:16] LABS: Anion Gap 14 (5-15); BUN 68 mg/dL (4-19); BUN/Creat Ratio 15.2 RATIO (10-20); Calcium,Total 7.7 mg/dL (7.6-11.0); Carbon Dioxide 18.3 mmol/L (21.0-32.0); Chloride 101 mmol/L (98-108); Creatinine, Serum 4.48 mg/dL (0.70-1.20); EST Glomerular Filtration Rate 17 (>60); Estimated Creatinine Clearance 14.44 ml/min (50-250); Glucose 308 mg/dL (70-99); Potassium 4.8 mmol/L (3.3-5.1); Sodium Level 133 mmol/L (133-145)
[2025-05-04 18:17] LABS: Anion Gap 15 (5-15); BUN 69 mg/dL (4-19); BUN/Creat Ratio 15.6 RATIO (10-20); Calcium,Total 7.7 mg/dL (7.6-11.0); Carbon Dioxide 17.6 mmol/L (21.0-32.0); Chloride 100 mmol/L (98-108); Creatinine, Serum 4.45 mg/dL (0.70-1.20); EST Glomerular Filtration Rate 17 (>60); Estimated Creatinine Clearance 14.54 ml/min (50-250); Glucose 310 mg/dL (70-99); Potassium 4.8 mmol/L (3.3-5.1); Sodium Level 133 mmol/L (133-145)
[2025-05-04 19:34] LABS: Vancomycin, Trough Level 33.2 ug/mL (5.0-15.0)
--- NOTE | 2025-05-04 19:50 | PCM.RX.CS ---
Consult Antibiotic Management Pharmacy has been consulted to manage selected antibiotic: Vancomycin Type of Intervention Type of Consult: Follow-up Labs Labs: Sodium 133 mmol/L (133-145) 05/04/25 16:46 Sodium 133 mmol/L (133-145) 05/04/25 16:46 Potassium 4.8 mmol/L (3.3-5.1) 05/04/25 16:46 Potassium 4.8 mmol/L (3.3-5.1) 05/04/25 16:46 Chloride 100 mmol/L (98-108) 05/04/25 16:46 Chloride 101 mmol/L (98-108) 05/04/25 16:46 Carbon Dioxide 17.6 mmol/L (21.0-32.0) L 05/04/25 16:46 Carbon Dioxide 18.3 mmol/L (21.0-32.0) L 05/04/25 16:46 Anion Gap 14 (5-15) 05/04/25 16:46 Anion Gap 15 (5-15) 05/04/25 16:46 BUN 68 mg/dL (4-19) H 05/04/25 16:46 BUN 69 mg/dL (4-19) H 05/04/25 16:46 Creatinine 4.45 mg/dL (0.70-1.20) H 05/04/25 16:46 Creatinine 4.48 mg/dL (0.70-1.20) H 05/04/25 16:46 Est GFR (MDRD) Non-Af 17 (>60) L 05/04/25 16:46 Est GFR (MDRD) Non-Af 17 (>60) L 05/04/25 16:46 BUN/Creatinine Ratio 15.2 RATIO (10-20) 05/04/25 16:46 BUN/Creatinine Ratio 15.6 RATIO (10-20) 05/04/25 16:46 Glucose 308 mg/dL (70-99) H 05/04/25 16:46 Glucose 310 mg/dL (70-99) H 05/04/25 16:46 Vancomycin Trough 33.2 ug/mL (5.0-15.0) H 05/04/25 16:46 Random Vancomycin 32.0 ug/mL (0.0-15.0) H 05/04/25 16:46 Microbiology Microbiology: Microbiology 05/02/25 20:20 Urine, Clean Catch Legionella Antigen - Final 05/02/25 20:20 Urine, Clean Catch Streptococcus pneumoniae Antigen (M - Final 05/03/25 02:15 Mucosa - Throat Respiratory Panel (PCR) - Final 05/03/25 01:49 Nasal Secretion MRSA (PCR) - Final 05/02/25 18:20 Mucosa - Nose SARS-CoV-2, Influenza & RSV (PCR) - Final Goal Trough Goal Trough: 15-20 mcg/mL Pharmacy Plan for Drug Dosing Pharmacy Plan for Drug Dosing: VANCOMYCIN LEVEL RECEIVED Current Vancomycin Dose: ON HOLD- patient with significant worsening in SCr. Number of Doses Received: last dose of 750mg IV administered 05/03/25 @2019 Vancomycin Level: 32 Hours Since Last Dose: 20.5hrs Renal Function: 4.45 Renal Function Trend: Significantly worsening (SCr 1.56 on admission) Lab/Micro: pending Vancomycin Plan/Comments: patient's random trough that was drawn is significantly elevated. Will continue to hold vancomycin and recheck a trough tomorrow morning with AM labs. Once trough is <20, vancomycin will be resumed. Until then, will continue to hold pending trough levels. Pending Level: *RANDOM* 05/05/25 @0600 Pharmacy Service will continue to monitor and adjust dosing as required.
--- NOTE | 2025-05-04 21:15 | CPS ---
Patient refuses vest at this time
[2025-05-04] MEDS: Insulin Glargine-YFGN 100 UNIT/ML Pen 8 UNIT SC (21:38)
[2025-05-04] MEDS: hydrALAZINE 20 MG/ML Vial 10 MG IV (21:51)
[2025-05-04 21:59] LABS: Bedside Glucose 413 mg/dL (74-106)
[2025-05-05] MEDS: 0.9% Saline Lock 10 ML Syringe IV (00:29)
[2025-05-05 01:20] LABS: Urine Sodium 28 mmol/L (Not Establ.)
[2025-05-05 01:36] LABS: Bedside Glucose 425 mg/dL (74-106)
--- NOTE | 2025-05-05 01:50 | NURSING ---
Report called to OLEKSANDR Arredondo at [facility] on [id number].
[2025-05-06 05:07] LABS: Complement C3 123 mg/dL (82-167)
== END 2025-05-05 00:30 | disposition short-term general hospital (02) | DRG 131 ==
LOC: ED 17:56 → ICU 05-03 02:05 → MS3 05-03 17:45
PROVIDERS: Nurse Practitioner Adult Health; Admitting Provider Family Medicine; Emergency Provider Surgery; Visit Provider Internal Medicine
DX: J18.9 Pneumonia, unspecified organism (principal); E84.0 Cystic fibrosis with pulmonary manifestations; J96.01 Acute respiratory failure with hypoxia; E43 Unspecified severe protein-calorie malnutrition; N17.9 Acute kidney failure, unspecified; B96.5 Pseudomonas (aeruginosa) (mallei) (pseudomallei) as the cause of diseases classified elsewhere; K86.81 Exocrine pancreatic insufficiency; Z66 Do not resuscitate; K76.6 Portal hypertension; J47.0 Bronchiectasis with acute lower respiratory infection; E10.69 Type 1 diabetes mellitus with other specified complication; I10 Essential (primary) hypertension; D64.9 Anemia, unspecified; Z95.828 Presence of other vascular implants and grafts; K76.89 Other specified diseases of liver; E87.5 Hyperkalemia; K21.9 Gastro-esophageal reflux disease without esophagitis; J45.909 Unspecified asthma, uncomplicated; E86.9 Volume depletion, unspecified; Z79.4 Long term (current) use of insulin; K74.00 Hepatic fibrosis, unspecified; Z68.1 Body mass index [BMI] 19.9 or less, adult; Z79.899 Other long term (current) drug therapy; Z75.1 Person awaiting admission to adequate facility elsewhere; Z79.51 Long term (current) use of inhaled steroids; Z88.8 Allergy status to other drugs, medicaments and biological substances
CPT/HCPCS: 36415; 36569; 36600; 71275; 76770; 80048; 80053; 80202; 81001; 82803; 82962; 83605; 83735; 83880; 84100; 84132; 84145; 84300; 84484; 85025; 85610; 85730; 86160; 87040; 87086; 87449; 87631; 87633; 87641; 93005; 94002; 94003; 94640; 94762; 97802; 99285; J2185; Q9967; A4216